=== PATIENT | male | born 1945 | race Caucasian/White ===

== ENCOUNTER 2023-02-25 14:18 | Outpatient (OUT) | payer MEDICARE, SELFPAY ==
--- NOTE | 2023-02-25 14:27 | CT_ITS ---
[address] [address] Patient Name: ARIANNE MCQUEEN MRN: [id number] date: 1945 Sex: M Assigned Patient Location: CT Current Patient Location: CT Accession/Order Number: [id number] Exam Date: 02/25/2023 14:30 Report Date: 02/25/2023 15:59 At the request of: IDA WHALEN Procedure: CT chest wo con EXAM: CT chest wo con HISTORY: Pneumonia J18.9 COMPARISON: 08/18/2022 TECHNIQUE: Axial CT images were obtained of the chest without intravenous contrast. Multiplanar reconstructions were performed. CHEST FINDINGS: Lungs/Pleura: Interval improvement of the consolidative opacity in the left lower lobe, however, there is some mild persistent atelectasis or infiltrate. A pulmonary nodule in this region measures 8.4 mm. Mild emphysematous disease is present. There are mild multifocal areas of atelectasis or scarring bilaterally. Trace bilateral pleural effusions are present. Cardiovascular: The heart is normal in size. Extensive coronary artery calcifications are present. The aorta and pulmonary arteries are unremarkable. Pericardium: No effusion. Mediastinum: Unremarkable. Lymph Nodes: No lymph node enlargement identified on this nonenhanced CT. Bones: There is a subacute fracture of the T5 vertebral body without significant displacement. Soft tissues: Unremarkable. Upper Abdomen: Unremarkable. IMPRESSION: 1. Improvement of the consolidative opacity in the left lower lobe with some persistent atelectasis or infiltrate. 2. Trace bilateral pleural effusions. 3. Pulmonary nodule in the left lower lobe measuring 8.4 mm. A follow-up CT the chest is recommended in 6 months. 4. Subacute fracture of the T5 vertebral body. 5. Extensive coronary artery calcification. Electronically authenticated by: YI ECHEVERRIA Date: 02/25/2023 15:59
== END 2023-02-25 14:19 | disposition home or self-care (01) ==
LOC: CT 14:18
PROVIDERS: PCP Family Medicine; Visit Provider Internal Medicine
DX: J18.9 Pneumonia, unspecified organism (principal); J90 Pleural effusion, not elsewhere classified; R91.1 Solitary pulmonary nodule; S22.059A Unspecified fracture of T5-T6 vertebra, initial encounter for closed fracture; I25.10 Atherosclerotic heart disease of native coronary artery without angina pectoris; X58.XXXA Exposure to other specified factors, initial encounter; R91.8 Other nonspecific abnormal finding of lung field
CPT/HCPCS: 71250

== ENCOUNTER 2023-03-26 10:13 | Outpatient (OUT) | payer MEDICARE, SELFPAY ==
--- NOTE | 2023-03-26 | VEIN_ITS ---
Patient: ARIANNE MCQUEEN Exam Date: 03/26/2023 : 1945 Gender:M Ordering : TRUDY DUNBAR Admission #: [id number] Family : Order #: [id number] CLICK HERE TO VIEW EXAM CORRECTION Corrected on: 03/26/2023; RADIOLOGY REPORT PROCEDURE: FACILITY [facility] COMPREHENSIVE VEIN CENTER - OFFICE VISIT INITIAL COMPARISON: None. PROGRESS NOTES: [age] year old male who presents with a 4+ year history of dilated discolored veins, leg pain and swelling, muscle cramping, edema, skin discoloration. The patient's bilateral leg symptoms are symmetric. There has been a progression of symptoms over past 4 years. This increases with prolonged standing. The patient describes an improvement with rest, elevation, exercise, support stockings (uniboots). The patient denies any signs and symptoms to suggest arterial ischemia. The patient describes a family history : Noncontributory. The patient has drinking and smoking history of : Occasional alcohol consumption; former tobacco smoker. Patient has a past medical history significant for diabetes, myocardial infarction, hypertension. The patient denies a history of deep venous thrombus or pulmonary embolus. See separate history and physical for medication list. No prior treatment for varicose or spider veins. Current use of compression stockings. After review of nurse notes, history and physical exam I discussed at length the pathophysiology of venous hypertension and possible treatments, therapies and strategies available. We discussed at length the importance of elevating the lower extremities above the level of the heart, increased physical activity and compression stocking use. Ultrasound venous reflux study performed today was discussed at length with the patient. The report demonstrates abnormally dilated and incompetent bilateral great saphenous veins (mid and distal thigh segment of left great saphenous vein has been removed or did not developed), bilateral small saphenous veins, multiple incompetent mental retardation aide veins within distal lower extremities in regions of patient's reoccurring wounds, and numerous incompetent branch saphenous varicosities bilaterally. PHYSICAL EXAM: The right leg demonstrates a few visible varicosities, a few spider veins, several partially healed wounds, marked edema, marked skin discoloration. The left leg demonstrates a few visible varicosities, a few spider veins, several partially healed wounds, marked edema, marked skin discoloration. Both thighs, legs and feet were symmetrically warm to the touch. Good posterior tibial and dorsalis pedis pulses were present bilaterally. VEIN/VC Facility EST Comprehensive IMPRESSION: 1. Bilateral lower extremity venous insufficiency 2. Bilateral lower extremity varicose veins 3. Marked bilateral lower extremity subcutaneous edema 4. No flow significant arterial disease 5. CEAP: C6, EP, AP, SC PLAN: 1. Continued use of compression stockings 2. Elevated legs and increased physical activity symptomatic relief 3. Endovenous laser ablation of right great saphenous vein, left small saphenous, right small saphenous, bilateral mental retardation aide veins near reoccurring wounds, followed by microfoam chemical ablation of any remaining incompetent branch saphenous varicosities. Nurse notes, history and physical were reviewed and confirmed, see attached forms. The nurse was present throughout the physical exam and consultation Dictated by: Km De Jesus M.D. on 03/26/2023 at 11:48 Approved by: Km De Jesus M.D. on 03/26/2023 at 13:05 Dictated by: Km De Jesus M.D. on 03/26/2023 at 13:10 Approved by: Km De Jesus M.D. on 03/26/2023 at 13:10
--- NOTE | 2023-03-26 | VEIN_ITS ---
Patient: ARIANNE MCQUEEN Exam Date: 03/26/2023 : 1945 Gender:M Ordering : TRUDY DUNBAR Admission #: [id number] Family : Order #: [id number] CLICK HERE TO VIEW EXAM RADIOLOGY REPORT PROCEDURE: VC EXT VENOUS REFLUX ANDI LMTD COMPARISON: None. INDICATIONS: Pain due to varicose veins of bilateral legs I83.813 TECHNIQUE: Duplex imaging of the lower extremity to assess the deep and superficial venous system for the presence of deep or superficial venous incompetence and to document the location and severity of disease. The study includes evaluation of the great saphenous vein (GSV), anterior accessory saphenous vein (AASV) and small saphenous vein (SSV). Patient scanned in reverse Trendelenburg and standing. FINDINGS: RIGHT LOWER EXTREMITY: Saphenofemoral Junction Reflux: Yes 9.9mm 2.7 sec GSV: Diam (mm) Reflux/ Time (sec) Proximal Thigh 10.3 Yes 1.7 Mid Thigh 7.3 Yes 4.9 Distal Thigh 8.0 Yes 4.5 Prox Calf 7.4 Yes 4.0 Mid Calf 6.2 Yes 1.7 Saphenopopliteal Junction Reflux: 7.6mm Yes 1.1 SSV: Proximal Calf 8.6 Yes 3.3 Mid Calf 7.4 Yes 4.2 AASV: Proximal Thigh 5.1 Yes 0.2 Mid Thigh 3.1 Yes 0.2 Distal Thigh Thrombi: No acute or chronic thrombus. Compressibility: Normal. Flow: Moderate to severe deep venous reflux. Preforator: Dist/med lower leg 5.9mm, 2.6s reflux. Prox/med calf 3.8mm, 0.7s reflux. Mid/lat lower leg 4.4mm, 1.5s reflux. Mid/lat lower leg 5.3mm, 1.0s reflux. Tech Note: Arterial plaque noted throughout. Incompetent varicose vein distal medial lower leg measures 4.6 mm with 0.8s reflux. Proximal medial lower leg varicosity measures 5.5 mm with 0.5s reflux. Varicose vein medial knee measures 5.5 mm with 1.2s reflux. Mid lateral lower leg varicose vein arising from insurance agents supervisor measures 4.1 mm with 0.8s reflux. 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 Compressibility: Partial compression of mid calf GSV. Flow: Moderate deep venous reflux. Returned Case Inspector: Mid/medial lower leg 5.3mm, 0.7s reflux. Prox/lat lower leg 4.8mm, 1.9s reflux. Tech Note: Arterial plaque noted throughout. GSV removed for heart surgery. Incompetent varicose vein mid lateral lower leg off of insurance agents supervisor measures 4.2 mm with 1.2s reflux. Varicose vein proximal medial lower leg measures 6.0 mm with 1.5s reflux. Mid medial thigh varicosity measures 0.7s reflux. Varicose vein mid medial lower leg measures 5.5 mm with 1.3s reflux. Proximal posterior calf varicosity measures 5.1 mm with 0.5s reflux. CONCLUSION: 1. Abnormally dilated and incompetent great saphenous veins bilaterally and small saphenous veins bilaterally. 2. Multiple abnormally dilated and incompetent insurance agents supervisor veins in areas of the patient's wounds involving both lower extremities. 3. Numerous dilated and incompetent branch saphenous varicosities bilaterally. Dictated by: Km De Jesus M.D. on 03/26/2023 at 11:43 Approved by: Km De Jesus M.D. on 03/26/2023 at 11:48
== END 2023-03-26 10:14 | disposition home or self-care (01) ==
LOC: VC 10:13
DX: I83.813 Varicose veins of bilateral lower extremities with pain (principal); R60.0 Localized edema; I89.0 Lymphedema, not elsewhere classified; I87.2 Venous insufficiency (chronic) (peripheral)
CPT/HCPCS: 93970; G0463

== ENCOUNTER 2023-04-14 09:47 | Outpatient (OUT) | payer MEDICARE, SELFPAY ==
--- NOTE | 2023-04-14 | VEIN_ITS ---
[address] [address] Patient Name: ARIANNE MCQUEEN MRN: [id number] date: 1945 Sex: M Assigned Patient Location: Current Patient Location: Accession/Order Number: [id number] Exam Date: 04/14/2023 10:00 Report Date: 04/14/2023 12:56 At the request of: JOHANA MAGANA Procedure: VC Endovenous Ablation 1VeinRT EXAMINATION: VC Endovenous Ablation 1VeinRT HISTORY: Pain due to varicose veins of bilateral legs I83.813 The risks and benefits of the procedure had been previously discussed, and were rediscussed at length. Informed written consent was obtained. Rogers Morgan RN and Maryjo Pride RDMS, RVT assisted. Time out procedure was performed. The right lower extremity was prepared and draped in the usual sterile fashion to allow knee flexion in the sterile field. Duplex ultrasound probe was draped in a sterile cover, sterile transmission gel was used. Venous mapping was performed with the areas of dilation and large tributaries marked. The total length was 70 cm from the entry 3 cm above the ankle to 3 cm below the Saphenofemoral junction. The diameter of the right great saphenous vein ranged from 10.3 mm. A 30 gauge needle and 1% buffered lidocaine was used to anesthetize the entry site. A 4 mm incision was made with a scalpel and the saphenous vein was entered percutaneously under direct ultrasound guidance with a micropuncture set, a single stick was successful in gaining access. A micro-guide wire was inserted and the needle removed. A micro-set including a dilator was inserted over the microwire and the needle and dilator were removed. A guide wire was inserted through the micro-set and guided through the saphenous vein to the saphenofemoral junction. The dilator was removed and an introducer sheath was inserted over the wire until the end of the sheath entered the saphenofemoral junction. The dilator and wire were removed and the 600 micron fiber was introduced and placed and positioned so that it extended beyond the sheath and was 3 cm distal to the saphenofemoral or saphenopopliteal junction. Final position of the fiber was determined by ultrasound guidance and duplex imaging. Tumescent anesthetic was delivered by ultrasound guidance. 375 cc of fluid was delivered along the entire course of the saphenous vein. The solution consisted of 1000 cc of normal saline with 40 mL of 1% lidocaine and 20 mL of sodium bicarbonate. A final positioning check was made. The energy source was turned on by means of the foot pedal and the fiber and sheath were withdrawn. The total number of Joules delivered was 3581. The laser was active for 448 seconds under continuous pulse, average laser use of 8 J. Laser start time 10:42 AM, 04/14/2023. Laser stop time 10:50 AM, 04/14/2023. A duplex ultrasound revealed compressibility and flow at the saphenofemoral junction immediately after the procedure. Hemostasis at the access site was achieved. The skin incision of the saphenous vein was closed with a 4 x 4. A compression stocking was applied. Postop instructions were given. A follow up appointment was recommended and scheduled. The patient tolerated the procedure well. Electronically authenticated by: NOREEN KELLY Date: 04/14/2023 12:56
[2023-04-14] MEDS: LIDOCAINE HCL 10 ML, SODIUM BICARBONATE 1 MEQ INJ (10:28)
[2023-04-14] MEDS: 0.9 % SODIUM CHLORIDE 500 ML, LIDOCAINE HCL 20 ML, SODIUM BICARBONATE 10 MEQ INJ (10:28)
== END 2023-04-14 09:48 | disposition home or self-care (01) ==
LOC: VC 09:47
PROVIDERS: Visit Provider Radiology Diagnostic Radiology
DX: I83.813 Varicose veins of bilateral lower extremities with pain (principal)
CPT/HCPCS: 36478

== ENCOUNTER 2023-04-20 10:48 | Outpatient (OUT) | payer MEDICARE, SELFPAY ==
--- NOTE | 2023-04-20 10:51 | VEIN_ITS ---
Patient: ARIANNE MCQUEEN Exam Date: 04/20/2023 : 1945 Gender:M Ordering : DR AUSTIN BANKS M.D. Admission #: [id number] Family : Order #: [id number] CLICK HERE TO VIEW EXAM RADIOLOGY REPORT PROCEDURE: VC EXT VENOUS RT LMTD COMPARISON: None. INDICATIONS: I80.01 Phlebitis of superficial veins of rt lower extremity TECHNIQUE: Lower extremity dutta scale and Duplex Doppler evaluation of the deep venous system from the inguinal ligament through the calf veins. FINDINGS: REGION: Right lower extremity. THROMBI: Negative for DVT. Heat induced thrombus in right GSV 2.3 cm from SFJ and extends to distal lower leg. COMPRESSIBILITY: Non-compressible segments corresponding to thrombus. FLOW: Absent flow corresponding to thrombus OTHER: Patent paratransit driver distal medial lower leg, 4.0 mm. CONCLUSION: Post ablation occlusion of the right great saphenous vein with heat induced thrombus 2.3 cm from the saphenofemoral junction Dictated by: Austin Banks MD on 04/20/2023 at 11:14 Approved by: Austin Banks MD on 04/20/2023 at 11:15
--- NOTE | 2023-04-20 10:51 | VEIN_ITS ---
Patient: ARIANNE MCQUEEN Exam Date: 04/20/2023 : 1945 Gender:M Ordering : DR AUSTIN BANKS M.D. Admission #: [id number] Family : Order #: [id number] CLICK HERE TO VIEW EXAM RADIOLOGY REPORT PROCEDURE: VC FACILITY EST LMTD VEIN CENTER - OFFICE VISIT FOLLOW UP COMPARISON: None. PROGRESS NOTES: The patient reports no significant problems following intravenous laser ablation of the right great saphenous vein. The patient has worn his compression stocking. The patient did not require oral analgesics. Patient has tried to follow our recommendations to exercise as he is able. Physical exam demonstrates no significant bruising. No erythema. No cellulitis or thrombophlebitis. No active ulceration. A thrombosed right great saphenous vein can be partially palpated Review of the ultrasound performed the same day demonstrates occlusive thrombus extending throughout the treated vein with heat induced thrombus 2.3 cm from the saphenofemoral junction. No deep vein thrombus. The patient expressed a desire to proceed with treatment and left small saphenous vein. VEIN/ Facility EST LMTD IMPRESSION: 1. Successful ablation of the right great saphenous vein 2. Persistent left small saphenous vein. PLAN: Intravenous laser ablation left small saphenous vein Nurse notes, history and physical were reviewed and confirmed, see attached forms. The nurse was present throughout the physical exam and consultation Dictated by: Austin Banks MD on 04/20/2023 at 11:43 Approved by: Austin Banks MD on 04/20/2023 at 11:44
== END 2023-04-20 10:49 | disposition home or self-care (01) ==
LOC: VC 10:49
PROVIDERS: PCP Radiology Diagnostic Radiology; Visit Provider Radiology Diagnostic Radiology
DX: I80.01 Phlebitis and thrombophlebitis of superficial vessels of right lower extremity (principal)
CPT/HCPCS: 93971; G0463

== ENCOUNTER 2023-05-05 07:55 | Outpatient (OUT) | payer MEDICARE, SELFPAY ==
--- NOTE | 2023-05-05 | VEIN_ITS ---
[address] [address] Patient Name: ARIANNE MCQUEEN MRN: [id number] date: 1945 Sex: M Assigned Patient Location: Current Patient Location: Accession/Order Number: [id number] Exam Date: 05/05/2023 07:52 Report Date: 05/05/2023 09:04 At the request of: JOHANA MAGANA Procedure: VC Endovenous Ablation 1VeinLT EXAMINATION: VC Endovenous Ablation 1Vein, left small saphenous vein HISTORY: Pain due to varicose veins of bilateral legs I83.813 COMPARISON: No relevant comparison available. TECHNIQUE: The risks and benefits of the procedure had been previously discussed, and were rediscussed at length. Informed written consent was obtained. Ladonna Stallworth and Heather Pride assisted. Time out procedure was performed. The left lower extremity was prepared and draped in the usual sterile fashion to allow knee flexion in the sterile field. Duplex ultrasound probe was draped in a sterile cover, sterile transmission gel was used. Venous mapping was performed with the areas of dilation and large tributaries marked. The total length was 34 cm from the entry 4 cm above the lateral malleolus to where the vein begins to dive deep. The diameter of the small bowel saphenous vein ranged from 5-8 mm. A 30 gauge needle and 1% buffered lidocaine was used to anesthetize the entry site. A 4 mm incision was made with a scalpel and the saphenous vein was entered percutaneously under direct ultrasound guidance with a micropuncture set, a single stick was successful in gaining access. A micro-guide wire was inserted and the needle removed. A micro-set including a dilator was inserted over the microwire and the needle and dilator were removed. A 0.018 guide wire was inserted through the micro-set and threaded through the saphenous vein. The dilator was removed and an introducer sheath was inserted over the wire. The dilator and wire were removed and the 600 micron fiber was introduced and placed and positioned so that it extended beyond the sheath. Final position of the fiber was determined by ultrasound guidance and duplex imaging. Tumescent anesthetic was delivered by ultrasound guidance. 150 cc of fluid was delivered along the entire course of the saphenous vein. The solution consisted of 1000 cc of normal saline with 40 mL of 1% lidocaine and 20 mL of sodium bicarbonate. A final positioning check was made. The energy source was turned on by means of the foot pedal and the fiber and sheath were withdrawn. The total number of Joules delivered was 1664. The laser was active for 208seconds under continuous pulse, average laser use of 8 J. Laser start time 8:26 AM 05/05/2023 . Laser stop time 8:30 AM 05/05/23. A duplex ultrasound revealed compressibility and flow at the saphenofemoral junction immediately after the procedure. Hemostasis at the access site was achieved. The skin incision of the saphenous vein was closed with a 4 x 4. A compression stocking was applied. Postop instructions were given. A follow up appointment was recommended and scheduled. The patient tolerated the procedure well and was discharged in good condition . VEIN/VC Endovenous Ablation 1VeinLT IMPRESSION: Technically successful endovenous laser ablation of the left small saphenous vein Electronically authenticated by: JOHANA MAGANA Date: 05/05/2023 09:04
[2023-05-05] MEDS: 0.9 % SODIUM CHLORIDE 500 ML, LIDOCAINE HCL 20 ML, SODIUM BICARBONATE 10 MEQ INJ (08:45)
== END 2023-05-05 07:56 | disposition home or self-care (01) ==
LOC: VC 07:56
PROVIDERS: PCP Radiology Diagnostic Radiology; Visit Provider Radiology Diagnostic Radiology
DX: I83.813 Varicose veins of bilateral lower extremities with pain (principal)
CPT/HCPCS: 36478

== ENCOUNTER 2023-05-12 07:50 | Outpatient (OUT) | payer MEDICARE, SELFPAY ==
--- NOTE | 2023-05-12 07:57 | VEIN_ITS ---
Patient: ARIANNE MCQUEEN Exam Date: 05/12/2023 : 1945 Gender:M Ordering : DR JOHANA MAGANA M.D. Admission #: [id number] Family : Order #: [id number] CLICK HERE TO VIEW EXAM RADIOLOGY REPORT PROCEDURE: [facility] EST LMTD VEIN CENTER - OFFICE VISIT FOLLOW UP COMPARISON: [facility], 04/20/2023. PROGRESS NOTES: The patient reports improvement in leg symptoms. There has been interval reduction in varicosities. The patient has followed our recommendations to walk 20-30 minutes once or twice per day since the procedure. Physical exam demonstrates decrease in varicosities of the leg. Persistent varicosities are identified along the legs bilaterally. Review of the ultrasound performed the same day demonstrates occlusive thrombus extending throughout the treated vein(s), see separate report, consistent with a successful ablation. No thrombus extending into or beyond the saphenofemoral junction. The patient expressed a desire to proceed with treatment of remaining incompetent varicosities. The patient was informed that treatment was a process and would require several procedures[facility]sessions[facility]: 1. Successful ablation of the left small saphenous vein(s). 2. Persistent incompetent varicose veins and lower extremity symptoms. PLAN: Endovenous laser ablation of right small saphenous vein Nurse notes, history and physical were reviewed and confirmed, see attached forms. The nurse was present throughout the physical exam and consultation Dictated by: Km De Jesus M.D. on 05/12/2023 at 11:09 Approved by: Km De Jesus M.D. on 05/12/2023 at 11:11
--- NOTE | 2023-05-12 07:57 | VEIN_ITS ---
Patient: ARIANNE MCQUEEN Exam Date: 05/12/2023 : 1945 Gender:M Ordering : DR JOHANA MAGANA M.D. Admission #: [id number] Family : Order #: [id number] CLICK HERE TO VIEW EXAM RADIOLOGY REPORT PROCEDURE: VC EXT VENOUS LT LIMITED COMPARISON: None. INDICATIONS: I80.02 Phlebitis of superficial veins of lt lower extremity TECHNIQUE: Lower extremity dutta scale and Duplex Doppler evaluation of the deep venous system from the inguinal ligament through the calf veins. FINDINGS: REGION: Left lower extremity. THROMBI: Negative for DVT. Heat induced thrombus visualized arising at distal thigh and extending through distal calf. COMPRESSIBILITY: Non-compressible segments. FLOW: Areas of no flow. OTHER: CONCLUSION: 1. Successful post ablation occlusion of left small saphenous vein. Dictated by: Km De Jesus M.D. on 05/12/2023 at 11:08 Approved by: Km De Jesus M.D. on 05/12/2023 at 11:09
== END 2023-05-12 07:51 | disposition home or self-care (01) ==
LOC: VC 07:50
PROVIDERS: PCP Radiology Diagnostic Radiology; Visit Provider Radiology Diagnostic Radiology
DX: I80.02 Phlebitis and thrombophlebitis of superficial vessels of left lower extremity (principal)
CPT/HCPCS: 93971; G0463

== ENCOUNTER 2023-05-20 10:13 | Outpatient (OUT) | payer MEDICARE, SELFPAY ==
[2023-05-20 11:05] LABS: Bilirubin Urine NEGATIVE (NEGATIVE); Blood Urine NEGATIVE (NEGATIVE); Clarity Urine CLEAR (CLEAR); Color Urine LT. YELLOW (YELLOW); Glucose Urine UA NEGATIVE (NEGATIVE); Ketones Urine NEGATIVE (NEGATIVE); Leukocyte Esterase Urine NEGATIVE (NEGATIVE); Nitrite Urine NEGATIVE (NEGATIVE); Protein Urine NEGATIVE (NEG/TRACE)
[2023-05-20 11:20] LABS: Basophils Absolute Auto 0.1 10^3/uL (0.0-0.1); Basophils Percent Auto 0.9 % (0.2-2.0); Eosinophils Absolute Auto 0.2 10^3/uL (0.0-0.7); Eosinophils Percent Auto 3.8 % (0.9-7.0); Hemoglobin 12.8 g/dL (14.0-18.0); Immature Granulocytes Abs Auto 0.03 10^3/uL (0.00-0.03); Immature Granulocytes Pct Auto 0.5 % (0.0-0.5); Lymphocytes Absolute Auto 1.6 10^3/uL (1.2-3.8); Lymphocytes Percent Auto 29.3 % (20.5-60.0); Mean Corpuscular Hemoglobin 29.7 pg (25.9-34.0); Mean Corpuscular Volume 92.8 fL (80.0-94.0); Mean Platelet Volume 9.2 fL (9.5-13.5); Monocytes Absolute Auto 0.7 10^3/uL (0.3-0.8); Monocytes Percent Auto 12.2 % (1.7-12.0); Neutrophils Percent Auto 53.3 % (43.0-75.0); Platelet Count 226 10^3/uL (150-450); Red Blood Count 4.31 10^6/uL (4.70-6.10); Red Cell Distribution Width 15.3 % (11.0-15.0); White Blood Count 5.6 10^3/uL (4.0-11.0)
[2023-05-20 11:34] LABS: Bacteria Urine NONE SEEN #/HPF (NONE SEEN); Mucus Urine NONE SEEN (NONE SEEN); RBC Urine NONE SEEN #/HPF (0-2); Squamous Epithelial Cell Urine RARE #/LPF (NONE/RARE); WBC Urine NONE SEEN #/HPF (NONE SEEN)
[2023-05-20 11:55] LABS: Microalbumin Urine Random <1.3 mg/dL (<=30.0)
[2023-05-20 13:35] LABS: Estimated Average Glucose 114 mg/dL; Glycohemoglobin A1C 5.6 % (4.5-6.2)
[2023-05-20 13:58] LABS: Alanine Aminotransferase 16 U/L (16-63); Albumin Globulin Ratio 0.6; Albumin Level 3.1 g/dL (3.4-5.0); Alkaline Phosphatase 92 U/L (46-116); Anion Gap 11.5; Aspartate Amino Transferase 12 U/L (15-37); BUN Creatinine Ratio 18.5; Calcium 8.4 mg/dL (8.5-10.1); Carbon Dioxide 27.2 mmol/L (21.0-32.0); Chloride 101 mmol/L (98-107); Chol HDL Ratio 2.3; Cholesterol 125 mg/dL (<=200); Estimated GFR (African America >60 (>=60); Estimated GFR (Non-African Ame >60 (>=60); Globulin 4.8 g/dL; Glucose 112 mg/dL (74-106); HDL Cholesterol 55 mg/dL (40-60); LDL Cholesterol Calculated 61.2 mg/dL; Potassium 4.7 mmol/L (3.5-5.1); Sodium 135 mmol/L (136-145); Total Protein 7.9 g/dL (6.4-8.2); Triglycerides 44 mg/dL (<=150); VLDL CHOLESTEROL 8.8 mg/dL
[2023-05-20 18:02] LABS: Prostate Specific Antigen Scrn 1.52 ng/mL (<=4.00)
== END 2023-05-20 10:14 | disposition home or self-care (01) ==
PROVIDERS: PCP Nurse Practitioner; Visit Provider Nurse Practitioner
DX: E11.9 Type 2 diabetes mellitus without complications (principal); I10 Essential (primary) hypertension; I25.10 Atherosclerotic heart disease of native coronary artery without angina pectoris; D64.9 Anemia, unspecified; Z12.5 Encounter for screening for malignant neoplasm of prostate
CPT/HCPCS: 36415; 80053; 80061; 81001; 82043; 82728; 83036; 83540; 85025; G0103

== ENCOUNTER 2023-05-26 10:16 | Outpatient (OUT) | payer MEDICARE, SELFPAY ==
--- NOTE | 2023-05-26 10:17 | VEIN_ITS ---
[address] [address] Patient Name: ARIANNE MCQUEEN MRN: [id number] date: 1945 Sex: M Assigned Patient Location: Current Patient Location: Accession/Order Number: [id number] Exam Date: 05/26/2023 10:28 Report Date: 05/26/2023 12:09 At the request of: JOHANA MAGANA Procedure: VC Endovenous Ablation 1VeinRT EXAMINATION: VC Endovenous Ablation 1Vein HISTORY: I83.813 Painful varicose veins of bilat lower extremities COMPARISON: No relevant comparison available. TECHNIQUE: The risks and benefits of the procedure had been previously discussed, and were rediscussed at length. Informed written consent was obtained. Heather Pride and Ladonna Stallworth assisted. Time out procedure was performed. The right lower extremity was prepared and draped in the usual sterile fashion. Duplex ultrasound probe was draped in a sterile cover, sterile transmission gel was used. Venous mapping was performed with the areas of dilation and large tributaries marked. The total length was 24 cm from the entry 6 cm above the lateral malleolus to where the vein begins to dive deep to the popliteal junction. The diameter of the small saphenous vein ranged from 5-9 mm. A 30 gauge needle and 1% buffered lidocaine was used to anesthetize the entry site. A 4 mm incision was made with a scalpel and the saphenous vein was entered percutaneously under direct ultrasound guidance with a micropuncture set, a single stick was successful in gaining access. A micro-guide wire was inserted and the needle removed. A micro-set including a dilator was inserted over the microwire and the needle and dilator were removed. A 0.018 guide wire was inserted through the micro-set and threaded through the saphenous vein . The dilator was removed and an introducer sheath was inserted over the wire until the end of the sheath. The dilator and wire were removed and the 600 micron fiber was introduced and placed and positioned so that it extended beyond the sheath. Final position of the fiber was determined by ultrasound guidance and duplex imaging. Tumescent anesthetic was delivered by ultrasound guidance. 150 cc of fluid was delivered along the entire course of the saphenous vein. The solution consisted of 1000 cc of normal saline with 40 mL of 1% lidocaine and 20 mL of sodium bicarbonate. A final positioning check was made. The energy source was turned on by means of the foot pedal and the fiber and sheath were withdrawn. The total number of Joules delivered was 1139. The laser was active for 142 seconds under continuous pulse, average laser use of 8 J. Laser start time 11:34 AM 05/26/23 . Laser stop time 11:36 AM 05/26/23. A duplex ultrasound revealed compressibility and flow at the saphenofemoral junction immediately after the procedure. Hemostasis at the access site was achieved. The skin incision of the saphenous vein was closed with a 4 x 4. A compression stocking was applied. Postop instructions were given. A follow up appointment was recommended and scheduled. The patient tolerated the procedure well and was discharged in good condition . VEIN/VC Endovenous Ablation 1VeinRT IMPRESSION: Technically successful endovenous laser ablation right small saphenous vein Electronically authenticated by: JOHANA MAGANA Date: 05/26/2023 12:09
[2023-05-26] MEDS: LIDOCAINE HCL 1% 100 MG/10 ML MDV INJ (11:55)
[2023-05-26] MEDS: 0.9 % SODIUM CHLORIDE 500 ML, LIDOCAINE HCL 20 ML, SODIUM BICARBONATE 10 MEQ INJ (11:56)
== END 2023-05-26 10:17 | disposition home or self-care (01) ==
LOC: VC 10:16
PROVIDERS: PCP Nurse Practitioner; Visit Provider Radiology Diagnostic Radiology
DX: I83.813 Varicose veins of bilateral lower extremities with pain (principal)
CPT/HCPCS: 36478

== ENCOUNTER 2023-06-02 09:12 | Outpatient (OUT) | payer MEDICARE, SELFPAY ==
--- NOTE | 2023-06-02 09:13 | VEIN_ITS ---
Patient: ARIANNE MCQUEEN Exam Date: 06/02/2023 : 1945 Gender:M Ordering : DR AUSTIN BANKS M.D. Admission #: [id number] Family : Order #: [id number] CLICK HERE TO VIEW EXAM RADIOLOGY REPORT PROCEDURE: FACILITY EST LMTD VEIN CENTER - OFFICE VISIT FOLLOW UP COMPARISON: FACILITY EST LMTD, 05/12/2023. FACILITY EST LMTD, 04/20/2023. PROGRESS NOTES: The patient reports difficult problems following intravenous laser ablation of the right small saphenous vein. The patient did not require oral analgesics. The patient has worn his compression stockings. The patient has exercised to the best of his ability Physical exam demonstrates the incision site to be closed. No areas of erythema or warmth. Thrombosed small saphenous vein cannot be palpated due to subcutaneous edema. Bilateral pitting edema below the knees is noted. Multiple active venous stasis ulcerations, right greater than left. Review of the ultrasound performed the same day demonstrates occlusive thrombus extending throughout the treated right small saphenous vein with heat induced thrombus 2.5 cm from the saphenopopliteal junction. The patient expressed a desire to proceed with treatment of bilateral incompetent perforating veins with associated venous stasis ulcerations, left before right. VEIN/ Facility EST LMTD IMPRESSION: 1. Successful ablation of the right small saphenous vein 2. 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 PLAN: Intravenous laser ablation left leg incompetent perforating veins Nurse notes, history and physical were reviewed and confirmed, see attached forms. The nurse was present throughout the physical exam and consultation Dictated by: Austin Banks MD on 06/02/2023 at 09:59 Approved by: Austin Banks MD on 06/02/2023 at 10:01
--- NOTE | 2023-06-02 09:14 | VEIN_ITS ---
Patient: ARIANNE MCQUEEN Exam Date: 06/02/2023 : 1945 Gender:M Ordering : DR AUSTIN BANKS M.D. Admission #: [id number] Family : Order #: [id number] CLICK HERE TO VIEW EXAM RADIOLOGY REPORT PROCEDURE: VC EXT VENOUS RT LMTD COMPARISON: VC EXT VENOUS RT LMTD, 04/20/2023. INDICATIONS: I80.01 Phlebitis of superficial veins of rt lower extremity TECHNIQUE: Lower extremity dutta scale and Duplex Doppler evaluation of the deep venous system from the inguinal ligament through the calf veins. FINDINGS: REGION: Right lower extremity. THROMBI: Negative for DVT. Heat induced thrombus visualized 2.5 cm from the SPJ. The heat induced thrombus extends from SPJ through distal calf. COMPRESSIBILITY: Non-compressible segments corresponding to thrombus. FLOW: Absent flow corresponding to thrombus CONCLUSION: Post ablation occlusion of treated right leg small saphenous vein. Heat induced thrombus is 2.5 cm from the saphenopopliteal junction Dictated by: Austin Banks MD on 06/02/2023 at 09:51 Approved by: Austin Banks MD on 06/02/2023 at 09:53
== END 2023-06-02 09:13 | disposition home or self-care (01) ==
LOC: VC 09:12
PROVIDERS: PCP Nurse Practitioner; Visit Provider Radiology Diagnostic Radiology
DX: I80.01 Phlebitis and thrombophlebitis of superficial vessels of right lower extremity (principal)
CPT/HCPCS: 93971; G0463

== ENCOUNTER 2023-06-04 07:25 | Outpatient (OUT) | payer MEDICARE, SELFPAY ==
--- NOTE | 2023-06-04 07:28 | VEIN_ITS ---
[address] [address] Patient Name: ARIANNE MCQUEEN MRN: [id number] date: 1945 Sex: M Assigned Patient Location: Current Patient Location: Accession/Order Number: [id number] Exam Date: 06/04/2023 07:28 Report Date: 06/04/2023 09:30 At the request of: JOHANA MAGANA Procedure: VC Endovenous Perf Ablation LT EXAMINATION: VC Endovenous Perf Ablation LT COMPARISON: INDICATIONS: I83.813 Painful varicose veins of bilat lower extremities OPERATIVE REPORT: Diagnosis: Superficial venous reflux, incompetent perforating veins Procedure: Endovenous laser ablation of the left licensed staff mft(s) Procedure: The patient was positioned supine on the table and the leg was prepped and draped to allow for visualization during venous access. A sterile cover was draped over a 16 mhz ultrasound probe. Venous mapping was performed prior to the procedure noting location and size of vessel(s). Production Broacher vein 1: Medial mid left calf. The diameter of the vein ranged from 5.3 mm's below the muscular fascia to 5.3 mm's at the entry point. Using a 30 gauge needle the entry site was anesthetized with 0.5 cc of 1% buffered lidocaine. Access was gained percutaneously, with a 21-gauge needle, into the licensed staff mft vein under ultrasound guidance. The needle was advanced into the desired position and the pre-measured 400-micron fiber was then inserted into the needle and locked in place. The position of the fiber was imaged with ultrasound guidance. The fiber tip was visualized to be 10 mm from the deep vessel. An anesthetic solution of 2.0 cc 1% buffered lidocaine was delivered along the course of the vein under ultrasound guidance using a syringe. A final positioning check of the laser fiber tip was performed. The laser was activated by means of a foot-pedal and the fiber and needle were withdrawn together in accordance to the desired joules per treatment area/spot weld. 4 areas/spot welds were performed, and the total number of joules delivered was 267. The total time of energy delivery was 33 seconds. A duplex ultrasound revealed compressibility and flow of the deep system immediately after the procedure. Hemostasis of the access site was achieved and dressed. A 20-30 mm compression stocking over coban was placed on the treated leg. Post-Op instructions were given, and a follow-up appointment was made. Production Broacher vein 2: Proximal lateral left calf. The diameter of the vein ranged from 4.8 mm's below the muscular fascia to 4.8 mm's at the entry point. Using a 30 gauge needle the entry site was anesthetized with 0.5 cc of 1% buffered lidocaine. Access was gained percutaneously, with a 21-gauge needle, into the licensed staff mft vein under ultrasound guidance. The needle was advanced into the desired position and the pre-measured 400-micron fiber was then inserted into the needle and locked in place. The position of the fiber was imaged with ultrasound guidance. The fiber tip was visualized to be 10 mm from the deep vessel. An anesthetic solution of 2 cc 1% buffered lidocaine was delivered along the course of the vein under ultrasound guidance using a syringe. A final positioning check of the laser fiber tip was performed. The laser was activated by means of a foot-pedal and the fiber and needle were withdrawn together in accordance to the desired joules per treatment area/spot weld. 5 areas/spot welds were performed, and the total number of joules delivered was 334. The total time of energy delivery was seconds. A duplex ultrasound revealed compressibility and flow of the deep system immediately after the procedure. Hemostasis of the access site was achieved and dressed. A 20-30 mm compression stocking over coban was placed on the treated leg. Post-Op instructions were given, and a follow-up appointment was made. CONCLUSION: 1. Technically successful endovenous laser ablation of 2 licensed staff mft veins (the proximal lateral left calf licensed staff mft vein was a branching licensed staff mft vein with 1 branch directly treated and the other clotted in conjunction). Electronically authenticated by: NOREEN KELLY Date: 06/04/2023 09:30
[2023-06-04] MEDS: LIDOCAINE HCL 20 ML, SODIUM BICARBONATE 2 MEQ INJ (09:09)
== END 2023-06-04 07:26 | disposition home or self-care (01) ==
LOC: VC 07:25
PROVIDERS: PCP Nurse Practitioner; Visit Provider Radiology Diagnostic Radiology
DX: I83.813 Varicose veins of bilateral lower extremities with pain (principal)
CPT/HCPCS: 36478

== ENCOUNTER 2023-06-18 09:00 | Outpatient (OUT) | payer MEDICARE, SELFPAY ==
--- NOTE | 2023-06-18 | VEIN_ITS ---
Patient: ARIANNE MCQUEEN Exam Date: 06/18/2023 : 1945 Gender:M Ordering : DR Austin Banks M.D. Admission #: [id number] Family : Order #: [id number] CLICK HERE TO VIEW EXAM RADIOLOGY REPORT PROCEDURE: [facility] EST L[facility] VEIN CENTER - OFFICE VISIT FOLLOW UP [facility] PROGRESS NOTES: The patient reports improvement in leg symptoms. There has been interval reduction in varicosities. The patient has followed our recommendations to walk 20-30 minutes once or twice per day since the procedure. Physical exam demonstrates decrease in varicosities of the leg. Persistent varicosities are identified along the legs bilaterally. Review of the ultrasound performed the same day demonstrates occlusive thrombus extending throughout the treated vein(s), see separate report, consistent with a successful ablation. No thrombus extending into or beyond the saphenofemoral junction. The patient expressed a desire to proceed with treatment of remaining incompetent varicosities and campaign manager veins. The patient was informed that treatment was a process and would require several procedures/sessions. VEIN/[facility] EST LMTD IMPRESSION: 1. Successful ablation of the treated left leg campaign manager veins. 2. Persistent incompetent and dilated varicose veins and lower extremity symptoms. PLAN: 1. Endovenous laser ablation of right lower extremity dilated/incompetent campaign manager veins in area of wounds. Nurse notes, history and physical were reviewed and confirmed, see attached forms. The nurse was present throughout the physical exam and consultation Dictated by: Km De Jesus M.D. on 06/18/2023 at 13:38 Approved by: Km De Jesus M.D. on 06/18/2023 at 13:40
--- NOTE | 2023-06-18 | VEIN_ITS ---
Patient: ARIANNE MCQUEEN Exam Date: 06/18/2023 : 1945 Gender:M Ordering : DR Austin Banks M.D. Admission #: [id number] Family : Order #: [id number] CLICK HERE TO VIEW EXAM RADIOLOGY REPORT PROCEDURE: VC EXT VENOUS LT LIMITED COMPARISON: VC EXT VENOUS LT LIMITED, 05/12/2023. INDICATIONS: Phlebitis of superficial veins of lt lower extremity I80.02 TECHNIQUE: Lower extremity dutta scale and Duplex Doppler evaluation of the deep venous system from the inguinal ligament through the calf veins. FINDINGS: REGION: Left lower extremity. THROMBI: Negative for DVT. Heat induced thrombus visualized at mid/med calf and prox/lat calf. COMPRESSIBILITY: Choose one.Non-compressible segments corresponding to thrombus FLOW: Areas of no flow. OTHER: CONCLUSION: 1. Successful post ablation occlusion of treated left lower extremity hollow handle knife assembler veins. Dictated by: Km De Jesus M.D. on 06/18/2023 at 13:37 Approved by: Km De Jesus M.D. on 06/18/2023 at 13:38
== END 2023-06-18 09:01 | disposition home or self-care (01) ==
LOC: VC 09:01
PROVIDERS: PCP Nurse Practitioner; Visit Provider Radiology Diagnostic Radiology
DX: R91.1 Solitary pulmonary nodule (principal); S22.059A Unspecified fracture of T5-T6 vertebra, initial encounter for closed fracture; I80.02 Phlebitis and thrombophlebitis of superficial vessels of left lower extremity
CPT/HCPCS: 71250; 93971; G0463

== ENCOUNTER 2023-06-18 12:46 | Outpatient (OUT) | payer MEDICARE, SELFPAY ==
--- NOTE | 2023-06-18 12:51 | CT_ITS ---
[address] [address] Patient Name: ARIANNE MCQUEEN MRN: [id number] date: 1945 Sex: M Assigned Patient Location: CT Current Patient Location: CT Accession/Order Number: [id number] Exam Date: 06/18/2023 13:00 Report Date: 06/18/2023 13:36 At the request of: IDA WHALEN Procedure: CT chest wo con EXAMINATION: CT chest wo con HISTORY: Solitary pulmonary nodule R91.1 COMPARISON: CT chest 02/25/2023 TECHNIQUE: Multi-planar CT images were obtained without and/or with IV contrast as indicated by examination type. Axial, Coronal, and Sagittal images. Dose reduction techniques were achieved by using automated exposure control and/or adjustment of mA and/or kV according to patient size and/or use of iterative reconstruction technique. FINDINGS: LUNGS: Clear to previously seen infiltrates and left lower lobe opacity/nodule. Mild emphysematous changes. PLEURA: No mass, effusion, or pneumothorax. VASCULATURE: No abnormality. GAGE: Calcified lymph nodes compatible with chronic granulomatous disease. MEDIASTINUM: A few calcified lymph nodes. CARDIAC: Atherosclerotic coronary artery disease. No pericardial effusion. AORTA: No aneurysm or dissection. CHEST WALL: No mass or axillary adenopathy. BONES: Stable transverse fracture through T5 vertebral body with normal height and alignment maintained. Suspect old fracture of sternum and old, healed fractures of several right ribs. LIMITED ABDOMEN: No suspicious findings Limited images of the upper abdomen. OTHER: Negative. CT/CT chest wo con IMPRESSION: 1. Clearing of previously seen infiltrates left lung base nodule/infiltrate. No suspicious lung findings. 2. Stable subacute transverse fracture of T5 vertebral body; unchanged compared to 02/25/2023, but not present on 08/18/2022. Electronically authenticated by: NOREEN KELLY Date: 06/18/2023 13:36
== END 2023-06-18 12:47 | disposition home or self-care (01) ==
LOC: CT 12:46
PROVIDERS: PCP Nurse Practitioner; Visit Provider Internal Medicine
DX: R91.1 Solitary pulmonary nodule (principal); S22.059A Unspecified fracture of T5-T6 vertebra, initial encounter for closed fracture
CPT/HCPCS: 71250

== ENCOUNTER 2023-06-30 09:48 | Outpatient (OUT) | payer MEDICARE, SELFPAY ==
--- NOTE | 2023-06-30 09:50 | VEIN_ITS ---
[address] [address] Patient Name: ARIANNE MCQUEEN MRN: [id number] date: 1945 Sex: M Assigned Patient Location: Current Patient Location: Accession/Order Number: [id number] Exam Date: 06/30/2023 10:00 Report Date: 06/30/2023 10:49 At the request of: JOHANA MAGANA Procedure: VC Endovenous Perf Ablation RT EXAMINATION: VC Endovenous Perf Ablation RT COMPARISON: INDICATIONS: I83.813 Painful varicose veins of bilat lower extremities OPERATIVE REPORT: Diagnosis: Superficial venous reflux, incompetent perforating veins Procedure: Endovenous laser ablation of the right engineer specialist(s) Procedure: The patient was positioned supine on the table and the leg was prepped and draped to allow for visualization during venous access. A sterile cover was draped over a 16 mhz ultrasound probe. Venous mapping was performed prior to the procedure noting location and size of vessel(s). Printer Technician vein 1: Right distal medial lower leg. The diameter of the vein ranged from 6 mm's below the muscular fascia to 6 mm's at the entry point. Using a 30 gauge needle the entry site was anesthetized with 1 cc of 1% buffered lidocaine. Access was gained percutaneously, with a 21-gauge needle, into the engineer specialist vein under ultrasound guidance. The needle was advanced into the desired position and the pre-measured 400-micron fiber was then inserted into the needle and locked in place. The position of the fiber was imaged with ultrasound guidance. The fiber tip was visualized to be 25 mm from the deep vessel. An anesthetic solution of 5cc 1% buffered lidocaine was delivered along the course of the vein under ultrasound guidance using a syringe. A final positioning check of the laser fiber tip was performed. The laser was activated by means of a foot-pedal and the fiber and needle were withdrawn together in accordance to the desired joules per treatment area/spot weld. 4 areas/spot welds were performed, and the total number of joules delivered was 310. The total time of energy delivery was 39 seconds. A duplex ultrasound revealed compressibility and flow of the deep system immediately after the procedure. Hemostasis of the access site was achieved. Printer Technician vein 2: Mid right lateral lower leg. The diameter of the vein ranged from 6 mm's below the muscular fascia to 5.3 mm's at the entry point. Using a 30 gauge needle the entry site was anesthetized with 1 cc of 1% buffered lidocaine. Access was gained percutaneously, with a 21-gauge needle, into the engineer specialist vein under ultrasound guidance. The needle was advanced into the desired position and the pre-measured 400-micron fiber was then inserted into the needle and locked in place. The position of the fiber was imaged with ultrasound guidance. The fiber tip was visualized to be 30 mm from the deep vessel. An anesthetic solution of 5cc 1% buffered lidocaine was delivered along the course of the vein under ultrasound guidance using a syringe. A final positioning check of the laser fiber tip was performed. The laser was activated by means of a foot-pedal and the fiber and needle were withdrawn together in accordance to the desired joules per treatment area/spot weld. 3areas/spot welds were performed, and the total number of joules delivered was 135. The total time of energy delivery was 17 seconds. A duplex ultrasound revealed compressibility and flow of the deep system immediately after the procedure. Hemostasis of the access site was achieved and dressed. A 20-30 mm compression stocking over coban was placed on the treated leg. Post-Op instructions were given, and a follow-up appointment was made. CONCLUSION: 1. Technically successful endovenous laser ablation of 2 right leg incompetent, engineer specialist veins Electronically authenticated by: JOHANA MAGANA Date: 06/30/2023 10:49
[2023-06-30] MEDS: LIDOCAINE HCL 20 ML, SODIUM BICARBONATE 2 MEQ INJ (10:13)
== END 2023-06-30 09:49 | disposition home or self-care (01) ==
LOC: VC 09:48
PROVIDERS: PCP Radiology Diagnostic Radiology; Visit Provider Radiology Diagnostic Radiology
DX: I83.813 Varicose veins of bilateral lower extremities with pain (principal)
CPT/HCPCS: 36478

== ENCOUNTER 2023-07-15 09:53 | Outpatient (OUT) | payer MEDICARE, SELFPAY ==
--- NOTE | 2023-07-15 09:55 | VEIN_ITS ---
Patient Name: ARIANNE MCQUEEN MR#: [id number] : 1945 Exam Date: 07/15/2023 Ordering Doctor: DR JOHANA MAGANA M.D. RADIOLOGY REPORT PROCEDURE: [facility] EST LMTD VEIN CENTER - OFFICE VISIT FOLLOW UP COMPARISON: [facility], 06/18/2023. PROGRESS NOTES: The patient reports improvement in leg symptoms. There has been interval reduction in varicosities. The patient has followed our recommendations to walk 20-30 minutes once or twice per day since the procedure. Physical exam demonstrates decrease in varicosities of the leg. Persistent varicosities are identified along the legs bilaterally. Review of the ultrasound performed the same day demonstrates occlusive thrombus extending throughout the treated vein(s), see separate report, consistent with a successful ablation. No thrombus extending into or beyond the saphenofemoral junction. The patient expressed a desire to proceed with treatment of remaining incompetent branch saphenous varicosities. The patient was informed that treatment was a process and would require several procedures[facility]sessions[facility]: 1. Successful ablation of the treated right leg kitchen runner veins. 2. Persistent incompetent branch saphenous veins and lower extremity symptoms. PLAN: Microfoam chemical ablation of bilateral lower extremity branch saphenous varicosities. Nurse notes, history and physical were reviewed and confirmed, see attached forms. The nurse was present throughout the physical exam and consultation Dictated by: Km De Jesus M.D. on 07/15/2023 at 11:01 Approved by: Km De Jesus M.D. on 07/15/2023 at 11:02
--- NOTE | 2023-07-15 09:55 | VEIN_ITS ---
Patient Name: ARIANNE MCQUEEN MR#: [id number] : 1945 Exam Date: 07/15/2023 Ordering Doctor: DR JOHANA MAGANA M.D. RADIOLOGY REPORT PROCEDURE: VC EXT VENOUS RT LMTD COMPARISON: VC EXT VENOUS RT LMTD, 06/02/2023. INDICATIONS: I80.01 Phlebitis of superficial veins of rt lower extremity TECHNIQUE: Lower extremity dutta scale and Duplex Doppler evaluation of the deep venous system from the inguinal ligament through the calf veins. FINDINGS: REGION: Right lower extremity. THROMBI: Negative for DVT. Heat induced thrombus visualized at dist/med calf and mid/lat calf. COMPRESSIBILITY: Non-compressible segments corresponding to thrombus FLOW: Areas of no flow corresponding to thrombus OTHER: CONCLUSION: 1. Successful post ablation occlusion of treated right leg pole inspector veins. Dictated by: Km De Jesus M.D. on 07/15/2023 at 10:58 Approved by: Km De Jesus M.D. on 07/15/2023 at 11:00
== END 2023-07-15 09:54 | disposition home or self-care (01) ==
LOC: VC 09:53
PROVIDERS: PCP Radiology Diagnostic Radiology; Visit Provider Radiology Diagnostic Radiology
DX: I80.01 Phlebitis and thrombophlebitis of superficial vessels of right lower extremity (principal)
CPT/HCPCS: 93971; G0463

== ENCOUNTER 2023-07-28 11:18 | Outpatient (OUT) | payer MEDICARE, SELFPAY ==
--- NOTE | 2023-07-28 11:22 | VEIN_ITS ---
[address] [address] Patient Name: ARIANNE MCQUEEN MRN: [id number] date: 1945 Sex: M Assigned Patient Location: Current Patient Location: Accession/Order Number: [id number] Exam Date: 07/28/2023 11:25 Report Date: 07/28/2023 13:05 At the request of: JOHANA MAGANA Procedure: VC INJ Foam Sclerosant WUS FIRE CLAIMS ADJUSTER PROCEDURE: VC INJ Foam Sclerosant WUS FIRE CLAIMS ADJUSTER HISTORY: Pain due to varicose veins of bilateral legs I83.813 Pre-operative Diagnosis: CEAP class C6 venous insufficiency with pain, tenderness, edema and incompetent branch saphenous vein(s), chronic venous insufficiency left leg secondary to venous incompetence Post-operative Diagnosis: CEAP class C6 venous insufficiency with pain, tenderness, edema and incompetent branch saphenous vein(s), chronic venous insufficiency left leg secondary to venous incompetence Procedure Performed: 1. Ultrasound-guided microfoam chemical ablation with Varithenaregistered 2. Intraoperative ultrasound guidance Physician: Km De Jesus M.D. Anesthesia: None Indications for Procedure: 78 year old male. Symptoms including lower extremity pain, swelling, dilated bulging veins, skin changes and wounds for many years despite conservative medical therapy including medical compression stockings, exercise and analgesics. Prior procedures include endovenous laser ablation. Multiple incompetent varicosities of the left leg. Duplex scan showed reflux and enlarged diameters up to 7 mm. The patient underwent informed consent including management options where the complications of infection, bleeding, pain, and skin injury were discussed. Particular attention was spent discussing thrombus extension and deep vein thrombosis as well as the possibility of pulmonary embolus and treatment with oral or injectable blood thinners. Procedure: The patient walked to the procedure room. All applicable staff donned appropriate apparel. A procedure timeout was performed to confirm correct patient, correct extremity, correct procedure, and correct room set-up including presence of all applicable supplies, devices, and drugs. A duplex ultrasound, performed by myself confirmed the location and incompetence of branch saphenous varicosities and their course was marked on the skin together with the dilated tributaries. The extent of treatment of the vein and the associated varicosities was determined through ultrasound mapping. The skin was prepped and then punctured with a butterfly needle and advanced under ultrasound guidance. The Varithenaregistered canister was activated and the canister was primed and purged as required in the instructions for use. Varithenaregistered was drawn into a sterile syringe. Varithenaregistered was slowly administered at 0.5-1.0 cc/second with close observation by ultrasound of its course in the vessels. Total volume utilized was: 15 mL into a 7 mm varicosity distal medial lower leg. Following administration of Varithenaregistered the leg was elevated and the patient was asked to repeatedly dorsiflex the ankle to limit flow of Varithenaregistered into perforating veins. Once appropriate spasm had been confirmed in the treated veins, the vascular catheter was removed from the leg and light pressure was applied over the puncture site for hemostasis. The common femoral and deep superficial veins were then evaluated for flow and compressibility prior to dressing placement. The lower extremity was kept elevated at 45 degrees above the horizontal and cording material was applied over the saphenous segments and tributaries to allow for eccentric compression over the target vessels including the targeted saphenous vein(s). A multilayer dressing was applied consisting of foam pads, coban and thigh-high 20-30 mm Hg compression elastic support hose were placed on the patient. The leg was lowered only after compression had been applied and the patient was immediately ambulatory. The patient ambulated 10 minutes under supervision and was without apparent concerns at time of release. Post-care instructions include advising patient to keep post-treatment bandages in place and dry for 48 hours, avoid extended periods of inactivity, avoid heavy exercise for one week, wear compression stockings on the treated leg continuously for two weeks, to walk daily for 10 minutes over the next month. The patient was instructed to take an anti-inflammatory medicine as needed and to follow up for color duplex scan of the Saphenous veins, the treated branch saphenous varicosities, the adjacent deep veins, and additional treatment within 7 days. PERSONNEL: Rogers Morgan RN Electronically authenticated by: KM DE JESUS Date: 07/28/2023 13:05
== END 2023-07-28 11:19 | disposition home or self-care (01) ==
LOC: VC 11:18
PROVIDERS: PCP Radiology Diagnostic Radiology; Visit Provider Radiology Diagnostic Radiology
DX: I83.813 Varicose veins of bilateral lower extremities with pain (principal)
CPT/HCPCS: 36466

== ENCOUNTER 2023-08-04 13:16 | Outpatient (OUT) | payer MEDICARE, SELFPAY ==
--- NOTE | 2023-08-04 13:19 | VEIN_ITS ---
Patient Name: ARIANNE MCQUEEN MR#: [id number] : 1945 Exam Date: 08/04/2023 Ordering Doctor: DR AUSTIN BANKS M.D. RADIOLOGY REPORT PROCEDURE: VC EXT VENOUS LT LIMITED COMPARISON: VC EXT VENOUS LT LIMITED, 06/18/2023. VC EXT VENOUS LT LIMITED, 05/12/2023. INDICATIONS: Phlebitis of superficial vein of lt lower extremity I80.02 TECHNIQUE: Lower extremity dutta scale and Duplex Doppler evaluation of the deep venous system from the inguinal ligament through the calf veins. FINDINGS: REGION: Left lower extremity. THROMBI: Negative for DVT. Varithena induced thrombus visualized at dist/med calf. COMPRESSIBILITY: Non-compressible segments corresponding to thrombus FLOW: Areas of absent flow corresponding to thrombus OTHER: Multiple patent varicose veins remain largest is at mid/med calf and measures 4.3mm with 2.0s reflux. CONCLUSION: Post ablation occlusion of treated varicose veins. Residual patent incompetent varicose veins measuring up to 4.3 mm. Dictated by: Austin Banks MD on 08/04/2023 at 13:46 Approved by: Austin Banks MD on 08/04/2023 at 13:46
--- NOTE | 2023-08-04 13:19 | VEIN_ITS ---
Patient Name: ARIANNE MCQUEEN MR#: [id number] : 1945 Exam Date: 08/04/2023 Ordering Doctor: DR AUSTIN BANKS M.D. RADIOLOGY REPORT PROCEDURE: [facility] EST L[facility]D VEIN CENTER - OFFICE VISIT FOLLOW UP COMPARISON: [facility] EST LMTD, 07/15/2023. [facility] EST LMTD, 06/18/2023. PROGRESS NOTES: The patient reports no significant skin discomfort following micro foam chemical ablation of left leg incompetent varicose veins. The patient has worn his compression stockings. The patient did not require oral analgesics. The patient has partially followed our direction to exercise following the procedure Physical exam demonstrates mild interval reduction in left leg erythema skin thickening and swelling from his presenting exam. No areas of erythema, warmth or active ulceration. Review of the ultrasound performed the same day demonstrates occlusive thrombus extending throughout the treated left leg varicose veins. No deep vein thrombus. Residual patent varicose veins measuring up to 4.3 mm remains. The patient expressed a desire to proceed with treatment of close veins. VEIN/[facility] EST LMTD IMPRESSION: 1. Successful ablation of treated incompetent left leg varicose veins 2. Persistent bilateral incompetent varicose veins. PLAN: Micro foam chemical ablation right leg incompetent varicose veins Nurse notes, history and physical were reviewed and confirmed, see attached forms. The nurse was present throughout the physical exam and consultation Dictated by: Austin Banks MD on 08/04/2023 at 14:18 Approved by: Austin Banks MD on 08/04/2023 at 14:20
== END 2023-08-04 13:17 | disposition home or self-care (01) ==
LOC: VC 13:16
PROVIDERS: PCP Radiology Diagnostic Radiology; Visit Provider Radiology Diagnostic Radiology
DX: I80.02 Phlebitis and thrombophlebitis of superficial vessels of left lower extremity (principal)
CPT/HCPCS: 93971; G0463

== ENCOUNTER 2023-08-10 14:10 | Outpatient (OUT) | payer MEDICARE, SELFPAY ==
--- NOTE | 2023-08-10 14:21 | VEIN_ITS ---
[address] [address] Patient Name: ARIANNE MCQUEEN MRN: [id number] date: 1945 Sex: M Assigned Patient Location: Current Patient Location: Accession/Order Number: [id number] Exam Date: 08/10/2023 14:25 Report Date: 08/10/2023 15:35 At the request of: JOHANA MAGANA Procedure: VC INJ Foam Sclerosant WUS NAIL MAKER PROCEDURE: VC INJ Foam Sclerosant WUS NAIL MAKER COMPARISON: None. HISTORY: I83.813 Bilateral painful varicose veins Pre-operative Diagnosis: CEAP class C6 venous insufficiency with pain, tenderness, edema and incompetent right saphenous and varicose vein(s), chronic venous insufficiency right leg secondary to venous incompetence Post-operative Diagnosis: CEAP class C6 venous insufficiency with pain, tenderness, edema and incompetent right saphenous and varicose vein(s), chronic venous insufficiency right leg secondary to venous incompetence Procedure Performed: 1. Ultrasound-guided microfoam chemical ablation with Varithenaregistered 2. Intraoperative ultrasound guidance Anesthesia: None Indications for Procedure: 78-year-old male who presents with a long history of lower extremity pain and swelling skin thickening and venous stasis ulcerations. The patient failed year conservative medical therapy including medical compression stockings, exercise and analgesics. Prior procedures include . Multiple incompetent varicosities of the right leg. Duplex scan showed reflux and enlarged diameters up to 6 mm. The patient underwent informed consent including management options where the complications of infection, bleeding, pain, and skin injury were discussed. Particular attention was spent discussing thrombus extension and deep vein thrombosis as well as the possibility of pulmonary embolus and treatment with oral or injectable blood thinners. Procedure: The patient walked to the procedure room. All applicable staff donned appropriate apparel. A procedure timeout was performed to confirm correct patient, correct extremity, correct procedure, and correct room set-up including presence of all applicable supplies, devices, and drugs. A duplex ultrasound, performed by myself confirmed the location and incompetence of branch saphenous varicosities and their course was marked on the skin together with the dilated tributaries. The extent of treatment of the vein and the associated varicosities was determined through ultrasound mapping. The skin was prepped and then punctured with a butterfly needle and advanced under ultrasound guidance. The Varithenaregistered canister was activated and the canister was primed and purged as required in the instructions for use. Varithenaregistered was drawn into a sterile syringe. The following injections were made: 7 cc injected into a 6 mm distal right great saphenous vein at the right ankle 3 cc injected into a 5 mm distal right great saphenous vein distal leg 5 cc injected into a 5 mm vein right lateral mid lower leg Varithenaregistered was slowly administered at 0.5-1.0 cc/second with close observation by ultrasound of its course in the vessels. Total volume utilized was: 15cc. Following administration of Varithenaregistered the leg was elevated and the patient was asked to repeatedly dorsiflex the ankle to limit flow of Varithenaregistered into perforating veins. Once appropriate spasm had been confirmed in the treated veins, the vascular catheter was removed from the leg and light pressure was applied over the puncture site for hemostasis. The common femoral and deep superficial veins were then evaluated for flow and compressibility prior to dressing placement. The lower extremity was kept elevated at 45 degrees above the horizontal and cording material was applied over the saphenous segments and tributaries to allow for eccentric compression over the target vessels including the targeted saphenous vein(s). A multilayer dressing was applied consisting of foam pads, coban and thigh-high 20-30 mm Hg compression elastic support hose were placed on the patient. The leg was lowered only after compression had been applied and the patient was immediately ambulatory. The patient ambulated 10 minutes under supervision and was without apparent concerns at time of release. Post-care instructions include advising patient to keep post-treatment bandages in place and dry for 48 hours, avoid extended periods of inactivity, avoid heavy exercise for one week, wear compression stockings on the treated leg continuously for two weeks, to walk daily for 10 minutes over the next month. The patient was instructed to take an anti-inflammatory medicine as needed and to follow up for color duplex scan of the Saphenous veins, the treated branch saphenous varicosities, the adjacent deep veins, and additional treatment within 7 days. PERSONNEL: Rogers Morgan RN Electronically authenticated by: JOHANA MAGANA Date: 08/10/2023 15:35
== END 2023-08-10 14:11 | disposition home or self-care (01) ==
LOC: VC 14:17
PROVIDERS: PCP Radiology Diagnostic Radiology; Visit Provider Radiology Diagnostic Radiology
DX: I83.813 Varicose veins of bilateral lower extremities with pain (principal)
CPT/HCPCS: 36466

== ENCOUNTER 2023-08-13 13:48 | Outpatient (OUT) | payer MEDICARE, SELFPAY ==
--- NOTE | 2023-08-13 13:50 | VEIN_ITS ---
Patient Name: ARIANNE MCQUEEN MR#: [id number] : 1945 Exam Date: 08/13/2023 Ordering Doctor: DR JOHANA MAGANA M.D. RADIOLOGY REPORT PROCEDURE: VC EXT VENOUS RT LMTD COMPARISON: VC EXT VENOUS RT LMTD, 07/15/2023. INDICATIONS: Phlebitis of superficial veins of rt lower extremity I80.01 TECHNIQUE: Lower extremity dutta scale and Duplex Doppler evaluation of the deep venous system from the inguinal ligament through the calf veins. FINDINGS: REGION: Right lower extremity. THROMBI: Negative for DVT. Varithena induced thrombus visualized at medial ankle, distal GSV, and prox/med calf. COMPRESSIBILITY: Non-compressible segments corresponding to thrombus FLOW: Areas of no flow corresponding to thrombus OTHER: Multiple patient varicose veins remain. The largest vein remaining is at med/dist thigh 5.5mm with 1.0s reflux. CONCLUSION: 1. Successful post ablation occlusion of right leg treated branch saphenous varicosities. Dictated by: mK De Jesus M.D. on 08/13/2023 at 14:47 Approved by: Km De Jesus M.D. on 08/13/2023 at 14:49
--- NOTE | 2023-08-13 13:50 | VEIN_ITS ---
Patient Name: ARIANNE MCQUEEN MR#: [id number] : 1945 Exam Date: 08/13/2023 Ordering Doctor: DR JOHANA MAGANA M.D. RADIOLOGY REPORT PROCEDURE: [facility] C[facility] - OFFICE VISIT FOLLOW UP [facility] PROGRESS NOTES: The patient reports improvement in leg symptoms. There has been interval reduction in varicosities. The patient has followed our recommendations to walk 20-30 minutes once or twice per day since the procedure. Physical exam demonstrates decrease in varicosities of the leg. Persistent varicosities are identified along the legs bilaterally. Review of the ultrasound performed the same day demonstrates occlusive thrombus extending throughout the treated vein(s), see separate report, consistent with a successful ablation. No thrombus extending into or beyond the saphenofemoral junction. The patient expressed a desire to proceed with treatment of remaining branch saphenous varicosities. The patient was informed that treatment was a process and would require several procedures/sessions. [facility]: 1. Successful ablation of the treated right leg branch saphenous vein(s). 2. Persistent incompetent varicose veins and bilateral lower extremity symptoms. PLAN: Microfoam chemical ablation of remaining branch saphenous varicosities of the legs. Nurse notes, history and physical were reviewed and confirmed, see attached forms. The nurse was present throughout the physical exam and consultation Dictated by: Km De Jesus M.D. on 08/13/2023 at 14:49 Approved by: Km De Jesus M.D. on 08/13/2023 at 14:51
--- OUTSIDE RECORDS SUMMARY | 2023-08-13 13:52 | XMS_ITS | CCD ---
Author Name Unknown Address [address] [place] [address] Organization [facility] Care Team Providers Care Lithoplate Maker Name Role Phone MAL BARNES Primary Care Unavailable PAY, ROBIN Referring Unavailable MASROOR, GUDELIA Admitting Unavailable MASROOR, GUDELIA Attending Unavailable AKANKSHA UP Surgeon Unavailable [place] Procedure Practitioner Unavailab le [place] Procedure Practitioner Unavailab le NORBERTRORENE, GUDELIA Surgeon Unavailable Moshe Garcia Unavailable ARIELLA GALLEGO Admitting Unavailable ARIELLA GALLEGO Attending Unavailable MOLLY, DR MENEZES Primary Care Unavailable ARIELLA GALLEGO Consulting Unavailable MOUKARBEL, DR DOMINIQUE Admitting Unavailable MOUKARBEL, DR DOMINIQUE Attending Unavailable MOLLY, DR MENEZES Primary Care Unavailable MOUKARBEL, DR DOMINIQUE Consulting Unavailable MOUKARBEL, DR DOMINIQUE Admitting Unavailable MOUKARBEL, DR DOMINIQUE Attending Unavailable MOLLY, DR MENEZES Primary Care Unavailable MOUKARBEL, DR DOMINIQUE Consulting Unavailable JULIÁNARIELLA SHELTON Admitting Unavailable ARIELLA GALLEGO Attending Unavailable MOLLY, DR MENEZES Primary Care Unavailable MOLLY, DR MENEZES Primary Care Unavailable DEBI, CUBA H Admitting Unavailable MAX CARRERAIKH H Attending Unavailable ROBIN, DR NOREEN Oneill Consulting Unavailable JESSICA ., DR TODD Consulting Unavailable MIS, ESTUARDO Consulting Unavailable DEBI, CUBA H Consulting Unavailable MOLLY, DR MENEZES Admitting Unavailable MOLLY, DR MENEZES Attending Unavailable [place], DR MENEZES Primary Care Unavailable MOLLY, DR MENEZES Consulting Unavailable ROBIN, DR NOREEN Oneill Consulting Unavailable MOUKARBEL, DR DOMINIQUE Admitting Unavailable MOUKARBEL, DR DOMINIQUE Attending Unavailable MOLLY, DR MENEZES Primary Care Unavailable MOUKARBEL, DR DOMINIQUE Consulting Unavailable MOUKARBEL, DR DOMINIQUE Admitting Unavailable MOUKARBEL, DR DOMINIQUE Attending Unavailable MOLLY, DR MENEZES Primary Care Unavailable SUMRALL, DR JOHANA Alvarado Consulting Unavailable MOUKARBEL, DR DOMINIQUE Consulting Unavailable MOUKARBEL, DR DOMINIQUE Admitting Unavailable MARTIN, DR DOMINIQUE Attending Unavailable MOLLY, DR MENEZES Primary Care Unavailable MARTIN, DR DOMINIQUE Consulting Unavailable Mal Barnes Primary Care Unavailable Lisha Ortega Attending Unavailable Lisha Ortega Admitting Unavailable ARIELLA GALLEGO Attending Unavailable ARIELLA GALLEGO Attending Unavailable CATINA SALAZAR Attending Unavailable CATINA SALAZAR Attending Unavailable Medications Current Medications Medication Drug Class(es) Dates Sig (Normalized) Sig (Original) amLODIPine 10 mg oral tablet (1 source) Dihydropyridine Calcium Channel Stephanie take 1 tablet by mouth every twenty-four hours amLODIPine Besylate 10 MG 1 tablet Orally Once a day Active furosemide 40 mg oral tablet (1 source) Loop Diuretic take 1 tablet by mouth every twenty-four hours Furosemide 40 MG 1 tablet Orally Once a day Active metFORMIN hydrochloride 500 mg oral tablet (1 source) Biguanide take 1 tablet by mouth once daily metFORMIN HCl 500 MG 1 tablet with a meal Orally Once a day Active nabumetone 500 mg oral tablet (1 source) Nonsteroidal Anti-inflammatory Drug take 1 tablet by mouth every twelve hours Nabumetone 500 MG 1 tablet Orally Twice a day Active naproxen 250 mg oral tablet (1 source) Nonsteroidal Anti-inflammatory Drug take 2 tablets by mouth every twelve hours Naproxen 250 MG 2 tablets Orally every 12 hrs Active Completed/Discontinued Medications Medication Drug Class(es) Dates Sig (Normalized) Sig (Original) Ibuprofen (1 source) Nonsteroidal Anti-inflammatory Drug Ibuprofen Not-Taking traZODone hydrochloride 50 mg oral tablet (1 source) Serotonin Reuptake Inhibitor take 1 tablet by mouth every twenty-four hours traZODone HCl 50 MG 1 tablet at bedtime as needed Orally Once a day Not-Taking Triamcinolone (2 sources) Corticosteroid Start: 10-06-2019 Kenalog -40 mg Sep, 40 mg Start: 09-06-2019 Kenalog -40 mg Aug, 40 mg Problems Active Problems Problem Classification Problem Date Documented Date Episodic/Chronic Cardiac dysrhythmias (1 source) Unspecified atrial fibrillation; Translations: [UNSPECIFIED ATRIAL FIBRILLATION] Onset: 3 Chronic Congestive heart failure; nonhypertensive (7 sources) Chronic diastolic (congestive) heart failure; Translations: [CHRONIC DIASTOLIC HEART FAILURE] Onset: 2 Chronic Coronary atherosclerosis and other heart disease (6 sources) 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; Translations: [Atherosclerotic heart disease of augustine coronary artery with other forms of angina pectoris] Onset: 2 Chronic Coronary atherosclerosis and other heart disease (3 sources) Presence of aortocoronary bypass graft; Translations: [PRESENCE AORTOCORONARY BYPASS GRAFT] Onset: 2 Episodic Diabetes mellitus with complications (1 source) Type 2 diabetes mellitus with diabetic chronic kidney disease; Translations: [TYPE 2 DM W/DIABETIC CKD] Onset: 3 Chronic Disorders of lipid metabolism (1 source) Pure hypercholesterolemia, unspecified; Translations: [PURE HYPERCHOLESTEROLEMIA UNSPEC] Onset: 3 Chronic Essential hypertension (6 sources) Essential (primary) hypertension; Translations: [ESSENTIAL PRIMARY HYPERTENSION] Onset: 2 Chronic Hypertension with complications and secondary hypertension (1 source) Hypertensive heart and chronic kidney disease with heart failure and stage 1 through stage 4 chronic kidney disease, or unspecified chronic kidney disease; Translations: [HTN HRT CKD W/HF STAGE 1-4/UNS CKD] Onset: 3 Chronic Osteoarthritis (3 sources) Osteoarthritis of right hip joint; Translations: [Unilateral primary osteoarthritis, right hip] Onset: 2 Chronic Other aftercare (1 source) 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 (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; Translations: [DENTAL ASSOCIATE CURRENT USE OF ASPIRIN] Onset: 3 Episodic Other aftercare (1 source) care home (current) use of 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/antiplate lets; Translations: [RETIREMENT ANTITHROMBOT/ANTIPLATLETS ] Onset: 3 Episodic Other aftercare (1 source) Other jail (current) drug therapy; Translations: [OTH DENTAL ASSOCIATE CURRENT DRUG THERAPY] Onset: 3 Episodic Other aftercare (1 source) care home (current) use of oral hypoglycemic drugs; Translations: [RETIREMENT USE ORAL HYPOGLYCEMIC DX] Onset: 3 Episodic Other circulatory disease (1 source) Personal history of sudden cardiac arrest; Translations: [PERSONAL HISTORY SUDDEN CARD ARREST] Onset: 3 Episodic Other connective tissue disease (1 source) History of total knee arthroplasty; Translations: [Presence of right artificial knee joint] Chronic Other nutritional; endocrine; and metabolic disorders (1 source) Body mass index (BMI) 40.0-44.9, adult; Translations: [BODY MASS INDEX BMI 40.0-44.9 ADULT] Onset: 3 Chronic Other nutritional; endocrine; and metabolic disorders (1 source) Morbid (severe) obesity due to excess calories; Translations: [MORBID SEVERE OBES D/T EXCESS BRENT] Onset: 3 Chronic Pneumonia (except that caused by tuberculosis or sexually transmitted disease) (1 source) Unspecified bacterial pneumonia; Translations: [UNSPECIFIED BACTERIAL PNEUMONIA] Onset: 3 Episodic Residual codes; unclassified (1 source) Obstructive sleep apnea (adult) (pediatric); Translations: [OBSTRUCTIVE SLEEP APNEA] Onset: 3 Chronic Residual codes; unclassified (1 source) Edema, unspecified; Translations: [EDEMA UNSPECIFIED] Onset: 3 Episodic Residual codes; unclassified (1 source) Family history of ischemic heart disease and other diseases of the circulatory system; Translations: [FAM HX ISCHEMIC HRT DZ OTH DZ CIRC] Onset: 3 Episodic Respiratory failure; insufficiency; arrest (adult) (1 source) Acute respiratory failure with hypoxia; Translations: [ACUTE RESPIRATORY FAIL W/HYPOXIA] Onset: 3 Episodic Screening and history of mental health and substance abuse codes (1 source) Personal history of nicotine dependence; Translations: [PERSONAL HISTORY OF NICOTINE DEPEND] Onset: 3 Episodic Septicemia (except in labor) (4 sources) Sepsis, unspecified organism; Translations: [Severe sepsis without septic shock] Onset: 2 Episodic Unclassified (1 source) CONTACT W/AND (SUSP) EXPOS COVID-19; Translations: [CONTACT W/AND (SUSP) EXPOS COVID-19] Onset: 3 Unclassified (1 source) CHRN KIDNEY DISEASE STG 3 UNSP; Translations: [CHRN KIDNEY DISEASE STG 3 UNSP] Onset: 3 Unclassified (1 source) LOW BACK PAIN, UNSPECIFIED; Translations: [LOW BACK PAIN, UNSPECIFIED] Onset: 2 Unclassified (1 source) Non-pressure chronic ulcer of unspecified part of right lower leg limited to breakdown of skin; Translations: [Non-pressure chronic ulcer of unspecified part of right lower leg limited to breakdown of skin] Onset: 3 Unclassified (1 source) Other pericardial effusion (noninflammatory); Translations: [Other pericardial effusion (noninflammatory)] Onset: 2 Past or Other Problems Problem Classification Problem Date Documented Da te Episodic/Chronic Other lower respiratory disease (7 sources) Shortness of breath; Translations: [SHORTNESS OF BREATH] Onset: 07-14-2022 Episodic Other lower respiratory disease (2 sources) Other forms of dyspnea; Translations: [Other forms of dyspnea] Onset: 10-10-2022 Episodic Other non-traumatic joint disorders (4 sources) Pain in right hip; Translations: [PAIN IN RIGHT HIP] Onset: 05-08-2022 Episodic Nara-; endo-; and myocarditis; cardiomyopathy (except that caused by tuberculosis or sexually transmitted disease) (1 source) Pericardial effusion (noninflammatory); Translations: [PERICARDIAL EFFUSION NONINFLAMM] Onset: 2022 Episodic Unclassified (1 source) Other pericardial effusion (noninflammatory); Translations: [Other pericardial effusion (noninflammatory)] Onset: 06-05-2023 Results Test Name Value Interpretation Reference Range Facility Office Visiton 06-05-2023 Follow-up visit [id number] Luis M Mcqueen 1945 Date Provider Department Center 06/05/2023 CATINA ROBERTS SHILPI Santiago Family History Problem Relation Age of Onset Coronary artery disease Mother Family Status - Relation Status Age at Mother Level of Service:29555 [place] OFFICE/OUTPATIENT ESTABLISHED LOW MDM 20-29 MIN Reason for Visit and Comments: Follow-up [854791] Coronary Artery Disease [187] Congestive Heart Failure [127] Normal [facility] 36on 01-21-2023 35 His blood pressures are elevated. Goal is <130/90. Would like to start him on amlodipine 5mg daily. Follow-up in clinic in 3 months. THanks Normal [facility] Office Visiton 01-06-2023 Follow-up visit [id number] Luis M Mcqueen 1945 M Date Provider Department Center 01/06/2023 ARIELLA GRAVES CARD [facility] Family History Problem Relation Age of Onset Coronary artery disease Mother Family Status - Relation Status Age at Mother Level of Service:08648 [place] OFFICE/OUTPATIENT ESTABLISHED LOW MDM 20-29 MIN Reason for Visit and Comments: Coronary Artery Disease [187] Hypertension [190036] Congestive Heart Failure [127] Normal [facility] Office Visiton 10-10-2022 Follow-up visit [id number] Luis M Mcqueen jennifer Desai 1945 M Date Provider Department Center 10/10/2022 ARIELLA GRAVES CARD [facility] Family History Problem Relation Age of Onset Coronary artery disease Mother Family Status - Relation Status Age at Mother Level of Service:05295 [place] OFFICE/OUTPATIENT ESTABLISHED MOD MDM 30-39 MIN Reason for Visit and Comments: Cardiac Stress Test [489] Coronary Artery Disease [187] Shortness of Breath [617980] Normal [facility] BNPon 08-20-2022 Natriuretic peptide B (Bld) [Mass/Vol] 1748.0 pg/mL Normal <=1,800.0 [facility] Comment on above: Performed By: #### P OCGLUC #### [facility] [address] [place] [address] Dr. Deidre Tijerina CBC AUTO DIFFon 08-20-2022 BASO # 0.0 103/ul Normal 0.0-0.1 [facility] Comment on above: Performed By: #### C BC #### [facility] [address] [address] [address] Deidre Tijerina Basophils/100 WBC (Bld) 0.1 % Critically low 0.2-2.0 [facility] Comment on above: Performed By: #### C BC #### [facility] [address] [address] [address] Deidre Tijerina EO # 0.0 103/ul Normal 0.0-0.7 [facility] Comment on above: Performed By: #### C BC #### [facility] [address] [address] [address] Deidre Tijerina Eosinophils/100 WBC (Bld) 0.0 % Critically low 0.9-7.0 [facility] Comment on above: Performed By: #### C BC #### [facility] [address] [place] [address] Dr. Deidre Tijerina Erythrocyte distribution width (RBC) [Ratio] 13.6 % Normal 11.0-15.0 [facility] Comment on above: Performed By: #### C BC #### [facility] [address] [place] [address] Dr. Deidre Tijerina Hematocrit (Bld) [Volume fraction] 30.1 % Critically low 42.0-54.0 [facility] Comment on above: Performed By: #### C BC #### [facility] [address] [place] [address] Dr. Deidre Tijernia Hemoglobin (Bld) [Mass/Vol] 9.8 g/dL Critically low 14.0-18.0 [facility] Comment on above: Performed By: #### C BC #### [facility] [address] [place] [address] Dr. Deidre Tijerina IG # 0.13 10e3/ul Critically high 0.00-0.03 [facility] Comment on above: Performed By: #### C BC #### [facility] [address] [place] [address] Dr. Deidre Tijerina IG % 1.0 % Critically high 0.0-0.5 [facility] Comment on above: Performed By: #### C BC #### [facility] [address] [place] [address] Dr. Deidre Tijerina LYMPH # 1.2 103/ul Normal 1.2-3.8 [facility] Comment on above: Performed By: #### C BC #### [facility] [address] [place] [address] Dr. Deidre Tijerina Lymphocytes/100 WBC (Bld) 8.6 % Critically low 20.5-60.0 [facility] Comment on above: Performed By: #### C BC #### [facility] [address] [place] [address] Dr. Deidre Tijerina MANUAL DIFF REQ NO Normal [facility] Comment on above: Performed By: #### C BC #### [facility] [address] [address] [address] Deidre Tijerina MCH (RBC) [Entitic mass] 30.7 pg Normal 25.9-34.0 [facility] Comment on above: Performed By: #### C BC #### [facility] [address] [place] [address] Dr. Deidre Tijerina MCHC (RBC) [Mass/Vol] 32.6 g/dL Normal 29.9-35.2 [facility] Comment on above: Performed By: #### C BC #### [facility] [address] [place] [address] Dr. Deidre Tijerina MCV (RBC) [Entitic vol] 94.4 fL Critically high 80.0-94.0 [facility] Comment on above: Performed By: #### C BC #### [facility] [address] [place] [address] Dr. Deidre Tijerina MONO # 0.8 103/ul Normal 0.3-0.8 [facility] Comment on above: Performed By: #### C BC #### [facility] [address] [place] [address] Dr. Deidre Tijerina Monocytes/100 WBC (Bld) 6.2 % Normal 1.7-12.0 [facility] Comment on above: Performed By: #### C BC #### [facility] [address] [place] [address] Dr. Deidre Tijerina NEUT # 11.3 103/ul Critically high 1.4-6.5 [facility] Comment on above: Performed By: #### C BC #### [facility] [address] [place] [address] Dr. Deidre Tijerina Neutrophils/100 WBC (Bld) 84.1 % Critically high 43.0-75.0 [facility] Comment on above: Performed By: #### C BC #### [facility] [address] [place] [address] Dr. Deidre Tijerina Platelet mean volume (Bld) [Entitic vol] 9.3 fL Critically low 9.5-13.5 [facility] Comment on above: Performed By: #### C BC #### [facility] [address] [address] [address] Deidre Tijerina PLT 204 103/ul Normal 150-450 [facility] Comment on above: Performed By: #### C BC #### [facility] [address] [address] [address] Deidre Tijerina RBC 3.19 106/ul Critically low 4.70-6.10 [facility] Comment on above: Performed By: #### C BC #### [facility] [address] [address] [address] Deidre Tijerina WBC 13.5 103/ul Critically high 4.0-11.0 [facility] Comment on above: Performed By: #### C BC #### [facility] [address] [address] [address] Deidre Tijerina POINT OF CARE GLUCOSEon 07-25 Glucose [Mass/Vol] 164 mg/dL Critically high 74-106 [facility] Comment on above: Performed By: #### P OCGLUC #### [facility] [address] [address] [address] Deidre Tijerina PROF CHEM 8 (BAS METB)on Anion gap [Moles/Vol] 10.5 mmol/L Normal [facility] Comment on above: Performed By: #### P OCGLUC #### [facility] [address] [address] [address] Deidre Tijerina Calcium [Mass/Vol] 8.1 mg/dL Critically low 8.5-10.1 [facility] Comment on above: Performed By: #### P OCGLUC #### [facility] [address] [address] [address] Deidre Tijerina Chloride [Moles/Vol] 100 mmol/L Normal 98-107 [facility] Comment on above: Performed By: #### P OCGLUC #### [facility] [address] [address] [address] Deidre Tijerina CO2 [Moles/Vol] 24.4 mmol/L Normal 21.0-32.0 [facility] Comment on above: Performed By: #### P OCGLUC #### [facility] [address] [address] [address] Deidre Tijerina Creatinine [Mass/Vol] 1.17 mg/dL Normal 0.70-1.30 [facility] Comment on above: Performed By: #### P OCGLUC #### [facility] [address] [address] [address] Deidre Tijerina EGFR-AF KUWAITI >60 Normal >=60 [facility] Comment on above: Performed By: #### P OCGLUC #### [facility] [address] [address] [address] Deidre Tijerina EGFR-NON AF [place] 60 mL/min/1.73m2 Normal >=60 [facility] Comment on above: Performed By: #### P OCGLUC #### [facility] [address] [address] [address] Deidre Tijerina Glucose [Mass/Vol] 145 mg/dL Critically high 74-106 [facility] Comment on above: Performed By: #### P OCGLUC #### [facility] [address] [address] [address] Deidre Tijerina Potassium [Moles/Vol] 3.9 mmol/L Normal 3.5-5.1 [facility] Comment on above: Performed By: #### P OCGLUC #### [facility] [address] [address] [address] Deidre Tijerina Sodium [Moles/Vol] 131 mmol/L Critically low 136-145 [facility] Comment on above: Performed By: #### P OCGLUC #### [facility] [address] [address] [address] Deidre Tijerina Urea nitrogen [Mass/Vol] 37.0 mg/dL Critically high 7.0-18.0 [facility] Comment on above: Performed By: #### P OCGLUC #### [facility] [address] [address] [address] Deidre Tijerina Urea nitrogen/Creatinine [Mass ratio] 31.6 mg/mg Normal [facility] Comment on above: Performed By: #### P OCGLUC #### [facility] [address] [place] [address] Dr. Deidre Tijerina XR CHEST 1 Von 08-20-2022 XR CHEST 1 V EXAM: XR CHEST 1 V 08/20/2022. COMPARISON: CT of the chest 08/18/2022. FINDINGS: Single upright AP image was obtained. HISTORY: shortness of breath IMPRESSION: 1. Patient overall appears somewhat obese. Prominent bilateral epicardial fat pad formation again noted. Heart size is mildly prominent. 2. Left basilar predominant consolidative changes are again identified related to pneumonia similar to that seen on prior CT examination. No overt edema, failure, pneumothorax or effusion noted. 3. Old healed bilateral rib fracture deformities are again identified. Electronically authenticated by: ESTUARDO ABEBE Date: 2022-08-20 13:26 Normal [facility] BNPon 08-19-2022 Natriuretic peptide B (Bld) [Mass/Vol] 955.0 pg/mL Normal <=1,800.0 [facility] Comment on above: Performed By: #### C BC #### [facility] [address] [place] [address] Dr. Deidre Tijerina CBC W MANUAL DIFFon 08-19-20 22 ATYPICAL LYMPH # 0.28 103/ul Normal [facility] Comment on above: Performed By: #### P OCGLUC #### [facility] [address] [place] [address] Dr. Deidre Tijerina ATYPICAL LYMPH % 2 % Normal [facility] Comment on above: Performed By: #### P OCGLUC #### [facility] [address] [place] [address] Dr. Deidre Tijerina BAND # 0.0 103/ul Normal 0.0-0.3 [facility] Comment on above: Performed By: #### P OCGLUC #### [facility] [address] [place] [address] Dr. Deidre Tijerina BAND % 0 % Normal 0-5 [facility] Comment on above: Performed By: #### P OCGLUC #### [facility] [address] [place] [address] Dr. Deidre Tijerina BASOM # 0.00 103/ul Normal 0.00-0.10 [facility] Comment on above: Performed By: #### P OCGLUC #### [facility] [address] [place] [address] Dr. Deidre Tijerina BASOM % 0.0 % Critically low 0.2-2.0 [facility] Comment on above: Performed By: #### P OCGLUC #### [facility] [address] [address] [address] Deidre Tijerina BLAST # Normal [facility] Comment on above: Performed By: #### P OCGLUC #### [facility] [address] [address] [address] Deidre Tijerina BLAST % Normal [facility] Comment on above: Performed By: #### P OCGLUC #### [facility] [address] [place] [address] Dr. Deidre Tijerina CORRECTED WBC Normal 4.0-11.0 [facility] Comment on above: Performed By: #### P OCGLUC #### [facility] [address] [place] [address] Dr. Deidre Tijerina EOS # 0.00 103/ul Normal 0.00-0.70 [facility] Comment on above: Performed By: #### P OCGLUC #### [facility] [address] [place] [address] Dr. Deidre Tijerina EOS% 0.0 % Critically low 0.9-7.0 [facility] Comment on above: Performed By: #### P OCGLUC #### [facility] [address] [place] [address] Dr. Deidre Tijerina HCT 30.4 % Critically low 42.0-54.0 [facility] Comment on above: Performed By: #### P OCGLUC #### [facility] [address] [place] [address] Dr. Deidre Tijerina HGB 9.8 g/dl Critically low 14.0-18.0 [facility] Comment on above: Performed By: #### P OCGLUC #### [facility] [address] [place] [address] Dr. Deidre Tijerina LYMPHM # 0.43 103/ul Critically low 1.20-3.80 [facility] Comment on above: Performed By: #### P OCGLUC #### [facility] [address] [address] [address] Deidre Tijerina LYMPHM% 3.0 % Critically low 20.5-60.0 [facility] Comment on above: Performed By: #### P OCGLUC #### [facility] [address] [address] [address] Deidre Tijerina MCH 30.8 pg Normal 25.9-34.0 [facility] Comment on above: Performed By: #### P OCGLUC #### [facility] [address] [address] [address] Deidre Tijerina MCHC 32.2 g/dl Normal 29.9-35.2 [facility] Comment on above: Performed By: #### P OCGLUC #### [facility] [address] [address] [address] Deidre Tijerina MCV 95.6 fL Critically high 80.0-94.0 [facility] Comment on above: Performed By: #### P OCGLUC #### [facility] [address] [place] [address] Dr. Deidre Tijerina METAMYELOCYTE # Normal [facility] Comment on above: Performed By: #### P OCGLUC #### [facility] [address] [place] [address] Dr. Deidre Tijerina METAMYELOCYTE % Normal [facility] Comment on above: Performed By: #### P OCGLUC #### [facility] [address] [place] [address] Dr. Deidre Tijerina MONOM# 0.57 103/ul Normal 0.30-0.80 [facility] Comment on above: Performed By: #### P OCGLUC #### [facility] [address] [place] [address] Dr. Deidre Tijerina MONOM% 4.0 % Normal 1.7-12.0 [facility] Comment on above: Performed By: #### P OCGLUC #### [facility] [address] [address] [address] Deidre Tijerina MPV 9.1 fL Critically low 9.5-13.5 [facility] Comment on above: Performed By: #### P OCGLUC #### [facility] [address] [address] [address] Deidre Tijerina MYELOCYTE # Normal [facility] Comment on above: Performed By: #### P OCGLUC #### [facility] [address] [address] [address] Deidre Tijerina MYELOCYTE % Normal [facility] Comment on above: Performed By: #### P OCGLUC #### [facility] [address] [address] [address] Deidre Tijerina NRBC Normal [facility] Comment on above: Performed By: #### P OCGLUC #### [facility] [address] [address] [address] Deidre Tijerina PLT 188 103/ul Normal 150-450 [facility] Comment on above: Performed By: #### P OCGLUC #### [facility] [address] [address] [address] Deidre Tijerina RBC 3.18 106/ul Critically low 4.70-6.10 [facility] Comment on above: Performed By: #### P OCGLUC #### [facility] [address] [address] [address] Deidre Tijerina RDW 14.0 % Normal 11.0-15.0 [facility] Comment on above: Performed By: #### P OCGLUC #### [facility] [address] [address] [address] Deidre Tijerina SEG # 12.92 103/ul Critically high 1.40-6.50 [facility] Comment on above: Performed By: #### P OCGLUC #### [facility] [address] [address] [address] Deidre Tijerina SEG % 91.0 % Critically high 43.0-75.0 [facility] Comment on above: Performed By: #### P OCGLUC #### [facility] [address] [address] [address] Deidre Tijerina WBC 14.2 103/ul Critically high 4.0-11.0 [facility] Comment on above: Performed By: #### P OCGLUC #### [facility] [address] [address] [address] Deidre Tijerina POINT OF CARE GLUCOSEon 07-25 Glucose [Mass/Vol] 305 mg/dL Critically high 74-106 [facility] Comment on above: Performed By: #### P OCGLUC #### [facility] [address] [address] [address] Deidre Tijerina Glucose [Mass/Vol] 181 mg/dL Critically high -106 [facility] Comment on above: Performed By: #### C BC #### [facility] [address] [place] [address] Dr. Deidre Tijerina Glucose [Mass/Vol] 342 mg/dL Critically high -106 [facility] Comment on above: Performed By: #### P OCGLUC #### [facility] [address] [address] [address] Deidre Tijerina Glucose [Mass/Vol] 192 mg/dL Critically high -106 [facility] Comment on above: Performed By: #### P OCGLUC #### [facility] [address] [address] [address] Deidre Tijerina PROF CHEM 8 (BAS METB)on Anion gap [Moles/Vol] 10.3 mmol/L Normal [facility] Comment on above: Performed By: #### B MP, BNP #### [facility] [address] [address] [address] Deidre Tijerina Calcium [Mass/Vol] 7.9 mg/dL Critically low 8.5-10.1 [facility] Comment on above: Performed By: #### B MP, BNP #### [facility] [address] [address] [address] Deidre Tijerina Chloride [Moles/Vol] 100 mmol/L Normal 98-107 [facility] Comment on above: Performed By: #### B MP, BNP #### [facility] [address] [address] [address] Deidre Tijerina CO2 [Moles/Vol] 26.6 mmol/L Normal 21.0-32.0 [facility] Comment on above: Performed By: #### B MP, BNP #### [facility] [address] [address] [address] Deidre Tijerina Creatinine [Mass/Vol] 1.29 mg/dL Normal 0.70-1.30 [facility] Comment on above: Performed By: #### B MP, BNP #### [facility] [address] [address] [address] Deidre Tijerina EGFR-AF [place] >60 Normal >=60 [facility] Comment on above: Performed By: #### B MP, BNP #### [facility] [address] [address] [address] Deidre Tijerina EGFR-NON AF [place] 54 mL/min/1.73m2 Critically low >=60 [facility] Comment on above: Performed By: #### B MP, BNP #### [facility] [address] [address] [address] Deidre Tijerina Glucose [Mass/Vol] 190 mg/dL Critically high 74-106 [facility] Comment on above: Performed By: #### B MP, BNP #### [facility] [address] [address] [address] Deidre Tijerina Potassium [Moles/Vol] 3.9 mmol/L Normal 3.5-5.1 [facility] Comment on above: Performed By: #### B MP, BNP #### [facility] [address] [address] [address] Deidre Tijerina Sodium [Moles/Vol] 133 mmol/L Critically low 136-145 [facility] Comment on above: Performed By: #### B MP, BNP #### [facility] [address] [address] [address] Deidre Tijerina Urea nitrogen [Mass/Vol] 35.0 mg/dL Critically high 7.0-18.0 [facility] Comment on above: Performed By: #### B MP, BNP #### [facility] [address] [address] [address] Deidre Tijerina Urea nitrogen/Creatinine [Mass ratio] 27.1 mg/mg Normal [facility] Comment on above: Performed By: #### B MP, BNP #### [facility] [address] [address] [address] Deidre Tijerina BILIRUBIN CONJUGATED (DIRECT )on 08-18-2022 BILI, CONJUGATED 0.4 mg/dL Critically high 0.0-0.2 [facility] Comment on above: Performed By: #### P OCGLUC #### [facility] [address] [address] [address] Deidre Tijerina BLOOD GASES BTYon 08-18-2022 02 MODE BIPAP Normal [facility] Comment on above: Performed By: #### P OCGLUC #### [facility] [address] [place] [address] Dr. Deidre Tijerina ALLENS TEST Positive [facility] Comment on above: Performed By: #### P OCGLUC #### [facility] [address] [address] [address] Deidre Tijerina Base excess Calc (Bld) [Moles/Vol] 1.0 mmol/L Normal -2.0-2.0 [facility] Comment on above: Performed By: #### P OCGLUC #### [facility] [address] [address] [address] Deidre Tijerina BIPAP PRESSURE 16/8 Normal [facility] Comment on above: Performed By: #### P OCGLUC #### [facility] [address] [address] [address] Deidre Tijerina CPAP Normal [facility] Comment on above: Performed By: #### P OCGLUC #### [facility] [address] [place] [address] Dr. Deidre Tijerina FIO2 35.00 % [facility] Comment on above: Performed By: #### P OCGLUC #### [facility] [address] [address] [address] Deidre Tijerina HCO3 (Bld) [Moles/Vol] 25.0 mmol/L Normal 22.0-26.0 [facility] Comment on above: Performed By: #### P OCGLUC #### [facility] [address] [place] [address] Dr. Deidre Tijerina LPM [facility] Comment on above: Performed By: #### P OCGLUC #### [facility] [address] [address] [address] Deidre Tijerina MINUTE VOLUME 21 L Normal [facility] Comment on above: Performed By: #### P OCGLUC #### [facility] [address] [place] [address] Dr. Deidre Tijerina Oxygen (Bld) [Partial pressure] 83.4 mm[Hg] Normal 80.0-100.0 [facility] Comment on above: Performed By: #### P OCGLUC #### [facility] [address] [place] [address] Dr. Deidre Tijerina Oxygen saturation in Blood 97.5 % Normal 95.0-100.0 [facility] Comment on above: Performed By: #### P OCGLUC #### [facility] [address] [place] [address] Dr. Deidre Tijerina PCO2 36.2 mmHg Normal 35.0-45.0 [facility] Comment on above: Performed By: #### P OCGLUC #### [facility] [address] [place] [address] Dr. Deidre Tijerina PEEP 8 [facility] Comment on above: Performed By: #### P OCGLUC #### [facility] [address] [place] [address] Dr. Deidre Tijerina pH (Bld) 7.440 [pH] Normal 7.350-7.450 [facility] Comment on above: Performed By: #### P OCGLUC #### [facility] [address] [place] [address] Dr. Deidre Tijerina PIP 17 Normal [facility] Comment on above: Performed By: #### P OCGLUC #### [facility] [address] [place] [address] Dr. Deidre Tijerina PS 8 Normal [facility] Comment on above: Performed By: #### P OCGLUC #### [facility] [address] [place] [address] Dr. Deidre Tijerina PUNCTURE SITE RR Normal [facility] Comment on above: Performed By: #### P OCGLUC #### [facility] [address] [place] [address] Dr. Deidre Tijerina RATE 14 bpm [facility] Comment on above: Performed By: #### P OCGLUC #### [facility] [address] [place] [address] Dr. Deidre Tijerina VENT MODE [facility] Comment on above: Performed By: #### P OCGLUC #### [facility] [address] [place] [address] Dr. Deidre Tijerina VT 945 ML [facility] Comment on above: Performed By: #### P OCGLUC #### [facility] [address] [place] [address] Dr. Deidre Tijerina BNPon 08-18-2022 Natriuretic peptide B (Bld) [Mass/Vol] 2561.0 pg/mL Critically high <=1,800.0 [facility] Comment on above: Performed By: #### P OCGLUC #### [facility] [address] [place] [address] Dr. Deidre Tijerina CBC W MANUAL DIFFon 08-18-20 ANISOCYTOSIS 1+ [facility] Comment on above: Performed By: #### C BCMAN #### [facility] [address] [place] [address] Dr. Deidre Tijerina ATYPICAL LYMPH # Normal [facility] Comment on above: Performed By: #### C BCMAN #### [facility] [address] [place] [address] Dr. Deidre Tijerina ATYPICAL LYMPH % Normal [facility] Comment on above: Performed By: #### C BCMAN #### [facility] [address] [place] [address] Dr. Deidre Tijerina BAND # 1.2 103/ul Critically high 0.0-0.3 [facility] Comment on above: Performed By: #### C BCMAN #### [facility] [address] [address] [address] Deidre Tijerina BAND % 7 % Critically high 0-5 [facility] Comment on above: Performed By: #### C BCMAN #### [facility] [address] [address] [address] Deidre Tijerina BASOM # 0.00 103/ul Normal 0.00-0.10 [facility] Comment on above: Performed By: #### C BCMAN #### [facility] [address] [address] [address] Deidre Tijerina BASOM % 0.0 % Critically low 0.2-2.0 [facility] Comment on above: Performed By: #### C BCNICOLASA #### [facility] [address] [place] [address] Dr. Deidre Tijerina BLAST # Normal [facility] Comment on above: Performed By: #### C BCNICOLASA #### [facility] [address] [place] [address] Dr. Deidre Tijerina BLAST % Normal [facility] Comment on above: Performed By: #### C BCNICOLASA #### [facility] [address] [place] [address] Dr. Deidre Tijerina CORRECTED WBC Normal 4.0-11.0 [facility] Comment on above: Performed By: #### C BCNICOLASA #### [facility] [address] [place] [address] Dr. Deidre Tijerina EOS # 0.17 103/ul Normal 0.00-0.70 [facility] Comment on above: Performed By: #### C BCNICOLASA #### [facility] [address] [place] [address] Dr. Deidre Tijerina EOS% 1.0 % Normal 0.9-7.0 [facility] Comment on above: Performed By: #### C BCNICOLASA #### [facility] [address] [place] [address] Dr. Deidre Tijerina HCT 34.8 % Critically low 42.0-54.0 [facility] Comment on above: Performed By: #### C BCMAN #### [facility] [address] [place] [address] Dr. Deidre Tijerina HGB 11.5 g/dl Critically low 14.0-18.0 [facility] Comment on above: Performed By: #### C BCMAN #### [facility] [address] [address] [address] Deidre Tijerina LYMPHM # 1.20 103/ul Normal 1.20-3.80 [facility] Comment on above: Performed By: #### C BCMAN #### [facility] [address] [place] [address] Dr. Deidre Tijerina LYMPHM% 7.0 % Critically low 20.5-60.0 [facility] Comment on above: Performed By: #### C BCNICOLASA #### [facility] [address] [place] [address] Dr. Deidre Tijerina MCH 31.5 pg Normal 25.9-34.0 [facility] Comment on above: Performed By: #### C BCNICOLASA #### [facility] [address] [place] [address] Dr. eDidre Tijerina MCHC 33.0 g/dl Normal 29.9-35.2 [facility] Comment on above: Performed By: #### C BCNICOLASA #### [facility] [address] [place] [address] Dr. Deidre Tijerina MCV 95.3 fL Critically high 80.0-94.0 [facility] Comment on above: Performed By: #### C BCMAN #### [facility] [address] [place] [address] Dr. Deidre Tijerina METAMYELOCYTE # Normal [facility] Comment on above: Performed By: #### C BCMAN #### [facility] [address] [place] [address] Dr. Deidre Tijerina METAMYELOCYTE % Normal [facility] Comment on above: Performed By: #### C BCMAN #### [facility] [address] [address] [address] Deidre Tijerina MONOM# 1.03 103/ul Critically high 0.30-0.80 [facility] Comment on above: Performed By: #### C ADALGISA #### [facility] [address] [place] [address] Dr. Deidre Tijerina MONOM% 6.0 % Normal 1.7-12.0 [facility] Comment on above: Performed By: #### C ADALGISA #### [facility] [address] [place] [address] Dr. Deidre Tijerina MPV 8.7 fL Critically low 9.5-13.5 [facility] Comment on above: Performed By: #### C ADALGISA #### [facility] [address] [place] [address] Dr. Deidre Tijerina MYELOCYTE # Normal [facility] Comment on above: Performed By: #### C ADALGISA #### [facility] [address] [place] [address] Dr. Deidre Tijerina MYELOCYTE % Normal [facility] Comment on above: Performed By: #### C ADALGISA #### [facility] [address] [place] [address] Dr. Deidre Tijerina NRBC Normal [facility] Comment on above: Performed By: #### C ADALGISA #### [facility] [address] [place] [address] Dr. Deidre Tijerina PLT 212 103/ul Normal 150-450 [facility] Comment on above: Performed By: #### C ADALGISA #### [facility] [address] [place] [address] Dr. Deidre Tijerina RBC 3.65 106/ul Critically low 4.70-6.10 [facility] Comment on above: Performed By: #### C ADALGISA #### [facility] [address] [place] [address] Dr. Deidre Tijerina RDW 14.0 % Normal 11.0-15.0 [facility] Comment on above: Performed By: #### C ADALGISA #### [facility] [address] [place] [address] Dr. Deidre Tijerina SEG # 13.59 103/ul Critically high 1.40-6.50 [facility] Comment on above: Performed By: #### C ADALGISA #### [facility] [address] [address] [address] Deidre Tijerina SEG % 79.0 % Critically high 43.0-75.0 [facility] Comment on above: Performed By: #### C ADALGISA #### [facility] [address] [address] [address] Deidre Tijerina WBC 17.2 103/ul Critically high 4.0-11.0 [facility] Comment on above: Performed By: #### C ADALGISA #### [facility] [address] CHEST WO CONon 08-18-2022 CT CHEST WO CON EXAMINATION: CT CHES T WO CON HISTORY: SHORTNESS OF BREATH increasing in severity COMPARISON: CT chest 05/14/2021 TECHNIQUE: Axial, Coronal, and Sagittal images were created without the administration of IV contrast material. Dose reduction techniques were achieved by using automated exposure control and/or adjustment of mA and/or kV according to patient size and/or use of iterative reconstruction technique. FINDINGS: LUNGS: Dense infiltrate within the superior and basilar segments of the left lower lobe. PLEURA: No mass, effusion, or pneumothorax. VASCULATURE: No abnormality. GAGE: No mass or adenopathy. MEDIASTINUM: No mass or adenopathy. CARDIAC: No enlargement or pericardial thickening. AORTA: No aneurysm or dissection. CHEST WALL: No mass or axillary adenopathy. BONES: No bone lesion or fracture. LIMITED ABDOMEN: No suspicious findings. Limited images of the upper abdomen. OTHER: Negative. IMPRESSION: 1. Marked, dense infiltrates within left lower lobe favoring pneumonia. Follow-up to document clearing is recommended. Electronically authenticated by: NOREEN KELLY Date: 2022-08-18 12:12 Normal [facility] CULTURE BLOODon 08-18-2022 Microscopic examination of blood, culture Culture Observations: NO GROWTH AT 5 DAYS. Normal [facility] Comment on above: Performed By: #### C BONILLA #### [facility] [address] [address] [address] Deidre Tijerina Microscopic examination of blood, culture Culture Observations: NO GROWTH AT 5 DAYS. Normal [facility] Comment on above: Performed By: #### C BC #### [facility] [address] [place], [place] [address] Dr. Deidre Tijerina Covid-19 PCR ([facility])on 07-25 SARS-CoV-2 (COVID-19) RNA ISA+probe Ql (Unsp spec) Not detected Normal NOT DETECTED [facility] Comment on above: Result Comment: When diagnostic testing is negative, the possibility of a false negative should be considered in the context of a patient's recent exposures and the presence of clinical signs and symptoms consistent with SARS-CoV-2. This test is not yet approved or cleared by the [place] FDA. When there are no FDA-approved or cleared tests available, and other criteria are met, FDA can make tests available under an emergency access mechanism called an Emergency Use Authorization (EUA). The EUA for this test is supported by the Char Filter Operator of Health and Human Service's declaration that circumstances exist to justify the emergency use of in vitro diagnostics for the detection and/or diagnosis of the virus that causes COVID-19. This EUA will remain in effect for the duration of the COVID-19 declaration justifying emergency of IVDs, unless it is terminated or revoked by the FDA (after which the test may no longer be used). Performed By: #### P OCGLUC #### [facility] [address] [place], [place] [address] Dr. Deidre Tijerina ECHO LIMITED STUDYon 022 ECHO LIMITED STUDY Patient: UMM MCQUEEN Exam Date: 08/18/2022 : 1945 Gender:M Ordering : SHAIKH Zay CARRERA . Admission #: [id number] Family : Order #: [id number] CLICK HERE TO VIEW EXAM ECHOCARDIOGRAM REPORT PROCEDURE: CARDIO PULMONARY ECHO LIMITED STUDY INDICATIONS: Shortness of breath COMPARISON: None. DESCRIPTION: Limited ECHOCARDIOGRAM Real-time transthoracic echocardiography with 2D and M-mode performed. QUALITY: Technical quality was limited. LEFT VENTRICLE: Normal chamber size. Moderate concentric left ventricular hypertrophy. LV EF: Global left ventricular systolic function is difficult to assess but appears normal; visual estimation of left ventricular ejection fraction is 55-60%. Cannot comment on regional wall motion abnormalities. LEFT ATRIUM: Moderate dilatation. RIGHT ATRIUM: Mild dilatation. RIGHT VENTRICLE: Mild dilatation. Decreased right ventricular systolic function. TRICUSPID VALVE: Grossly normal. MITRAL VALVE: Grossly normal. There is no mitral annular calcification. AORTIC VALVE: Normal trileaflet appearance. No visible sclerosis. AORTIC ROOT: Normal diameter and appearance. PULMONIC VALVE: Not well visualized. PERICARDIUM: Anterior free space; trivial effusion versus fat pad. IVC: Collapses with inspirations. Normal size. CONCLUSION: Global left ventricular systolic function is difficult to assess but appears preserved; visually estimated ejection fraction is 55 to 60%. Moderate left ventricular hypertrophy. Biatrial enlargement. The right ventricle appears dilated with reduced systolic function. Anterior free space; trivial effusion versus fat pad. The limited echocardiogram was performed. Adult Echocardiography Procedure Report Left Ventricle LVEDD (3.7 - 5.6 cm): 5.11 cm LVESD (2.2 - 4.0 cm): 3.11 cm LVIVS thickness (0.6 - 1.2 cm): 1.43 cm LVPW thickness (0.5 - 1.0 cm): 1.54 cm LVOT Diameter 2.57 cm Left Ventricular Ejection Fraction: 69.40 %, 69.40 % Left Atrium LA Volume Index (2D A2C): 111.90 ml, 111.90 ml Left Atrium Systolic Dimension: 3.83 cm Mitral Valve Right Ventricle RV Internal Diastolic Dimension: 4.10 cm Aorta AO Root Diam: 3.23 cm Aortic Valve Tricuspid Valve Pulmonic Valve Right Atrium Right Atrium Systolic Pressure: 76.59 ml, 76.59 ml Dictated by: Ariella Leonard M.D. on 08/26/2022 at 08:57 Approved by: Ariella Leonard M.D. on 08/26/2022 at 09:00 Normal [facility] INFLUENZA A AND B AGon 08-18 INFLUANEGH SEE BELOW Normal [facility] Comment on above: Result Comment: Nega tive for Flu A protein angiten. Infection due to Flu A cannot be ruled out. Flu A angiten in the sample may be below the detection limit of the test. Performed By: #### P OCGLUC #### [facility] [address] [address] [facility] SEE BELOW Normal [facility] Comment on above: Result Comment: Nega tive for Flu B protein antigen. Infection due to Flu B cannot be ruled out. Flu B antigen in the sample may be below the detection limit of the test. Performed By: #### P OCGLUC #### [facility] [address] [address] [address] Deidre Tijerina INFLUENZA A AG Negative Normal NEGATIVE SEE COMMENT [facility] Comment on above: Performed By: #### P OCGLUC #### [facility] [address] [address] [address] Deidre Tijerina INFLUENZA B AG Negative Normal NEGATIVE SEE COMMENT [facility] Comment on above: Performed By: #### P OCGLUC #### [facility] [address] [place] [address] Dr. Deidre Tijerina INTERNAL CONTROLS Within Normal Limits Normal Wi thin Normal Limits [facility] Comment on above: Performed By: #### P OCGLUC #### [facility] [address] [place] [address] Dr. Deidre Tijerina LACTATE/LACTIC ACIDon 2021 Lactate [Moles/Vol] 2.0 mmol/L Critically high 0.4-1.9 [facility] Comment on above: Performed By: #### P OCGLUC #### [facility] [address] [place] [address] Dr. Deidre Tijerina Lactate [Moles/Vol] 2.0 mmol/L Critically high 0.4-1.9 [facility] Comment on above: Performed By: #### P OCGLUC #### [facility] [address] [place] [address] Dr. Deidre Tijerina POINT OF CARE GLUCOSEon 07-25 Glucose [Mass/Vol] 228 mg/dL Critically high 74-106 [facility] Comment on above: Performed By: #### P OCGLUC #### [facility] [address] [address] [address] Deidre Tijerina Glucose [Mass/Vol] 119 mg/dL Critically high 74-106 [facility] Comment on above: Performed By: #### P OCGLUC #### [facility] [address] [address] [address] Deidre Tijerina Glucose [Mass/Vol] 161 mg/dL Critically high 74-106 [facility] Comment on above: Performed By: #### C BC #### [facility] [address] [address] [address] Deidre Tijerina PROF 14(COMP METB)on 022 Albumin [Mass/Vol] 2.9 g/dL Critically low 3.4-5.0 [facility] Comment on above: Performed By: #### P OCGLUC #### [facility] [address] [place] [address] Dr. Deidre Tijerina Albumin/Globulin [Mass ratio] 0.6 {ratio} Normal [facility] Comment on above: Performed By: #### P OCGLUC #### [facility] [address] [address] [address] Deidre Tijerina ALP [Catalytic activity/Vol] 71 U/L Normal 46-116 [facility] Comment on above: Performed By: #### P OCGLUC #### [facility] [address] [address] [address] Deidre Tijerina ALT [Catalytic activity/Vol] 13 U/L Critically low 16-63 [facility] Comment on above: Performed By: #### P OCGLUC #### [facility] [address] [address] [address] Deidre Tijerina Anion gap [Moles/Vol] 12.3 mmol/L Normal [facility] Comment on above: Performed By: #### P OCGLUC #### [facility] [address] [address] [address] Deidre Tijerina AST [Catalytic activity/Vol] 14 U/L Critically low 15-37 [facility] Comment on above: Performed By: #### P OCGLUC #### [facility] [address] [place] [address] Dr. Deidre Tijerina Bilirubin [Mass/Vol] 2.6 mg/dL Critically high 0.2-1.0 [facility] Comment on above: Performed By: #### P OCGLUC #### [facility] [address] [address] [address] Deidre Tijerina Calcium [Mass/Vol] 8.5 mg/dL Normal 8.5-10.1 [facility] Comment on above: Performed By: #### P OCGLUC #### [facility] [address] [address] [address] Deidre Tijerina Chloride [Moles/Vol] 98 mmol/L Normal 98-107 [facility] Comment on above: Performed By: #### P OCGLUC #### [facility] [address] [address] [address] Deidre Tijerina CO2 [Moles/Vol] 26.0 mmol/L Normal 21.0-32.0 [facility] Comment on above: Performed By: #### P OCGLUC #### [facility] [address] [address] [address] Deidre Tijerina Creatinine [Mass/Vol] 1.43 mg/dL Critically high 0.70-1.30 [facility] Comment on above: Performed By: #### P OCGLUC #### [facility] [address] [address] [address] Deidre Tijerina EGFR-AF KU[place]I 58 mL/min/1.73m2 Critically low >=60 [facility] Comment on above: Performed By: #### P OCGLUC #### [facility] [address] [address] [address] Deidre Tijerina EGFR-NON AF [place]I 48 mL/min/1.73m2 Critically low >=60 [facility] Comment on above: Performed By: #### P OCGLUC #### [facility] [address] [address] [address] Deidre Tijerina Globulin (S) [Mass/Vol] 5.0 g/dL Normal [facility] Comment on above: Performed By: #### P OCGLUC #### [facility] [address] [address] [address] Deidre Tijerina Glucose [Mass/Vol] 165 mg/dL Critically high 74-106 [facility] Comment on above: Performed By: #### P OCGLUC #### [facility] [address] [address] [address] Deidre Tijerina Potassium [Moles/Vol] 4.3 mmol/L Normal 3.5-5.1 [facility] Comment on above: Performed By: #### P OCGLUC #### [facility] [address] [address] [address] Deidre Tijerina Protein [Mass/Vol] 7.9 g/dL Normal 6.4-8.2 [facility] Comment on above: Performed By: #### P OCGLUC #### [facility] [address] [address] [address] Deidre Tijerina Sodium [Moles/Vol] 132 mmol/L Critically low 136-145 [facility] Comment on above: Performed By: #### P OCGLUC #### [facility] [address] [address] [address] Deidre Tijerina Urea nitrogen [Mass/Vol] 25.0 mg/dL Critically high 7.0-18.0 [facility] Comment on above: Performed By: #### P OCGLUC #### [facility] [address] [address] [address] Deidre Tijerina Urea nitrogen/Creatinine [Mass ratio] 17.5 mg/mg Normal [facility] Comment on above: Performed By: #### P OCGLUC #### [facility] [address] [address] [address] Deidre Tijerina TROPONIN, HIGH SENSITIVITYon 08-18-2022 HSTROP 8.4 pg/mL Normal 4.0-76.1 [facility] Comment on above: Result Comment: CUT- OFF POINTS HAVE BEEN ESTABLISHED BASED ON THE FOURTH UNIVERSAL DEFINITIONS OF MYOCARDIAL INFARCTION. THE UPPER REFERENCE LIMIT (URL) OF TROPONIN, DEFINED THE 99TH PERCENTILE OF cTnI DISTRIBUTION IN A REFERENCE POPULATION, HAS BEEN CONFIRMED THE DECISION THRESHOLD FOR NM DIAGNOSIS. Performed By: #### P OCGLUC #### [facility] [address] [address] [address] Deidre Tijerina XR CHEST 1 Von 08-18-2022 XR CHEST 1 V EXAM: XR CHEST 1 V 08/18/2022 COMPARISON STUDY: AP chest 09/15/2021. FINDINGS: Single upright AP chest image was obtained. The image is quite underpenetrated making it difficult to accurately evaluate lower lung zones and retrocardiac region. HISTORY: SHORTNESS OF BREATH IMPRESSION: 1. There is stable mild/moderate enlargement of the cardiac silhouette. Mild atherosclerotic change of the aorta again noted. 2. Abnormal increased opacity overlapping lower lung zones is nonspecific and may be related to underpenetration. This is asymmetrically greater toward the left. There is partial obscuration of the left heart border and hemidiaphragmatic contour. A small portion of the left costophrenic angle is excluded from the [id number]. 3. No overt edema, failure, pneumothorax, or sizable effusion noted within limits of study. 4. Old healed nondisplaced anterior right fifth rib fracture deformity faintly suggested. Electronically authenticated by: ESTUARDO ABEBE Date: 2022-08-18 09:37 Normal [facility] STRESS/REST MULTIon 08-04 AL STRESS/REST MULTI Patient: ARIANNE MCQUEEN Exam Date: 08/04/2022 : 1945 Gender:M Ordering : DR CATINA SALAZAR M.D. Admission #: [id number] Family : Order #: [id number] CLICK HERE TO VIEW EXAM RADIOLOGY REPORT PROCEDURE: RADIONUCLIDE IMAGING STRESS/REST MULTI COMPARISON: NM STRESS/REST MULTI, 12/14/2020. INDICATIONS: Dyspnea on exertion TECHNIQUE: Exam Description: Stress/Rest two day protocol gated SPECT Rest Imagin.5 mCi Tc-99m Cardiolite IV on 08/04/2022 Stress Imaging 26.0 mCi Tc-99m Cardiolite IV on 08/05/2022 Exercise Protocol: 0.4 mg Lexiscan given IV Heart Rate (bpm): Rest: 61 Max: 78 PMHR: 54 Blood Pressure: Rest: 148/72 Max: 148/72 Symptoms: Rest and peak stress ECG findings were normal and the exercise portion of the study was normal per attending physician Dr. Axel Martell . For more details please see separate cardiac stress test report. FINDINGS: QUALITY OF STUDY: Good. PERFUSION DEFECT: None. LOCATION: N/A SIZE: N/A. SEVERITY: N/A. TYPE: N/A. WALL MOTION: Normal. LV SIZE: Normal. 116 mL. TID / TCD: None; 0.9 LVEF: Normal. Calculated EF 71%. SUMMARY: Myocardial perfusion imaging study is NORMAL. CONCLUSION: 1. Normal myocardial scan with no reversible ischemia 2. Normal exercise test Dictated by: Johana Banks MD on 08/07/2022 at 08:27 Approved by: Johana Banks MD on 08/07/2022 at 08:29 Normal [facility] BNPon 07-14-2022 Natriuretic peptide B (Bld) [Mass/Vol] 164.0 pg/mL Normal <=1,800.0 [facility] Comment on above: Performed By: #### B ANIMAL CARE SUPERVISOR, BMP #### [facility] [address] [place] [address] Dr. Deidre Tijerina Follow-Upon 07-14-2022 Follow-Up [id number] Luis M Mcqueen jennifer Desai 1945 M Date Provider Department Center 07/14/2022 CATINA ROBERTS [facility] Family History Problem Relation Age of Onset Coronary artery disease Mother Family Status - Relation Status Age at Mother Level of Service:92445 [place] OFFICE/OUTPATIENT ESTABLISHED MOD MDM 30-39 MIN Reason for Visit and Comments: Coronary Artery Disease [187] Hypertension [086275] Hyperlipidemia [182] Normal [facility] PROF CHEM 8 (BAS METB)on Anion gap [Moles/Vol] 9.2 mmol/L Normal [facility] Comment on above: Performed By: #### B ANIMAL CARE SUPERVISOR, BMP #### [facility] [address] [place] [address] Dr. Deidre Tijerina Calcium [Mass/Vol] 8.4 mg/dL Critically low 8.5-10.1 [facility] Comment on above: Performed By: #### B ANIMAL CARE SUPERVISOR, BMP #### [facility] [address] [place] [address] Dr. Deidre Tijerina Chloride [Moles/Vol] 106 mmol/L Normal 98-107 [facility] Comment on above: Performed By: #### B ANIMAL CARE SUPERVISOR, BMP #### [facility] [address] [place] [address] Dr. Deidre Tijerina CO2 [Moles/Vol] 27.0 mmol/L Normal 21.0-32.0 [facility] Comment on above: Performed By: #### B ANIMAL CARE SUPERVISOR, BMP #### [facility] [address] [address] [address] Deidre Tijerina Creatinine [Mass/Vol] 1.38 mg/dL Critically high 0.70-1.30 [facility] Comment on above: Performed By: #### B ANIMAL CARE SUPERVISOR, BMP #### [facility] [address] [address] [address] Deidre Tijerina EGFR-AF KU[place]I =60 Normal >=60 [facility] Comment on above: Performed By: #### B ANIMAL CARE SUPERVISOR, BMP #### [facility] [address] [place] [address] Dr. Deidre Tijerina EGFR-NON AF [place]I 50 mL/min/1.73m2 Critically low >=60 [facility] Comment on above: Performed By: #### B ANIMAL CARE SUPERVISOR, BMP #### [facility] [address] [place] [address] Dr. Deidre Tijerina Glucose [Mass/Vol] 95 mg/dL Normal 74-106 [facility] Comment on above: Performed By: #### B ANIMAL CARE SUPERVISOR, BMP #### [facility] [address] [place] [address] Dr. Deidre Tijerina Potassium [Moles/Vol] 5.2 mmol/L Critically high 3.5-5.1 [facility] Comment on above: Performed By: #### B ANIMAL CARE SUPERVISOR, BMP #### [facility] [address] [place] [address] Dr. Deidre Tijerina Sodium [Moles/Vol] 137 mmol/L Normal 136-145 [facility] Comment on above: Performed By: #### B ANIMAL CARE SUPERVISOR, BMP #### [facility] [address] [address] [address] Deidre Tijerina Urea nitrogen [Mass/Vol] 25.0 mg/dL Critically high 7.0-18.0 [facility] Comment on above: Performed By: #### B ANIMAL CARE SUPERVISOR, BMP #### [facility] [address] [place], [place] [address] Dr. eDidre Tijerina Urea nitrogen/Creatinine [Mass ratio] 18.1 mg/mg Normal [facility] Comment on above: Performed By: #### B CUAUHTEMOC, CLEMENCIA #### [facility] [id number] Deidre Tijerina ECHOCARDIO M/2D COMPLETEon 0 05-08-2022 ECHOCARDIO M/2D COMPLETE Patient: ARIANNE MCQUEEN Exam Date: 05/08/2022 : 1945 Gender:M Ordering : DR CATINA SALAZAR M.D. Admission #: [id number] Family : DR MAL BARNES D.O. Order #: [id number] CLICK HERE TO VIEW EXAM ECHOCARDIOGRAM REPORT PROCEDURE: CARDIO PULMONARY ECHOCARDIO M/2D COMP INDICATIONS: pericardial effusion, CABG x 2, hypertension, diabetes COMPARISON: None. DESCRIPTION: COMPLETE ECHOCARDIOGRAM Real-time transthoracic echocardiography with 2D, M-mode, spectral and color flow Doppler performed. QUALITY: Technically difficult due to patients condition. LEFT VENTRICLE: Normal chamber size. Moderate concentric left ventricular hypertrophy. LV EF: Normal left ventricular ejection fraction, (>55%). DIASTOLIC: Normal diastolic function. ATRIAL SEPTUM: LEFT ATRIUM: Normal chamber size. RIGHT ATRIUM: Mild dilatation. RIGHT VENTRICLE: Normal chamber size. Normal right ventricular systolic function. TRICUSPID VALVE: Normal mobility and thickness. No stenosis with trivial regurgitation. No evidence of pulmonary hypertension. RVSP is 31 mmHg MITRAL VALVE: Normal mobility and thickness. No evidence of mitral valve stenosis. There is no mitral annular calcification. No mitral regurgitation. AORTIC VALVE: Normal trileaflet appearance. Mildly calcified aortic valve. Normal leaflet mobility. No evidence of aortic valve stenosis. No aortic regurgitation. AORTIC ROOT: Normal diameter and appearance. PULMONIC VALVE: Not well visualized. No stenosis. No regurgitation. PERICARDIUM: Trivial pericardial effusion. IVC: Collapses with inspirations. PLEURA: CONCLUSION: 1. Moderate concentric left ventricular hypertrophy. Normal systolic function. LVEF is 60%. 2. Normal right ventricular systolic function. 3. No significant valvular dysfunction. 4. Normal right-sided pressures. 5. Trivial pericardial effusion. 6. Compared to the study of 10/23/2021, the pericardial effusion has nearly resolved. Adult Echocardiography Procedure Report Left Ventricle Left Atrium Mitral Valve Right Ventricle Aorta Aortic Valve Tricuspid Valve Pulmonic Valve Right Atrium Dictated by: Catina Salazar M.D. on 05/09/2022 at 19:44 Approved by: Catina Salazar M.D. on 05/09/2022 at 19:48 Normal [facility] XR LSPINE MIN 4 VIEWSon 04-24 XR LSPINE MIN 4 VIEWS EXAMINATION: XR LSPINE MIN 4 VIEWS HISTORY: Pain in right hip joint COMPARISON: No relevant comparison available. FINDINGS: BONES: Minimal grade 1 retrolisthesis of L2 on 3 and L3 on 4. No fracture. Moderate degenerative facet arthropathy L4-L5, L5-S1. DISC SPACES: Multilevel mild narrowing. Moderate narrowing L5-S1. PARASPINOUS: Negative. No paraspinous abnormality is seen. OTHER: Negative. IMPRESSION: 1. 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 No appreciable acute abnormality. Electronically authenticated by: NOREEN KELLY Date: 2022-05-08 10:47 Normal [facility] PROF CHEM 8 (BAS METB)on Anion gap [Moles/Vol] 6.8 mmol/L Normal [facility] Comment on above: Performed By: #### P OCGLUC #### [facility] [address] [address] [address] Deidre Tijerina Calcium [Mass/Vol] 8.8 mg/dL Normal 8.5-10.1 [facility] Comment on above: Performed By: #### P OCGLUC #### [facility] [address] [address] [address] Deidre Tijerina Chloride [Moles/Vol] 102 mmol/L Normal 98-107 [facility] Comment on above: Performed By: #### P OCGLUC #### [facility] [address] [address] [address] Deidre Tijerina CO2 [Moles/Vol] 28.1 mmol/L Normal 21.0-32.0 [facility] Comment on above: Performed By: #### P OCGLUC #### [facility] [address] [address] [address] Deidre Tijerina Creatinine [Mass/Vol] 1.84 mg/dL Critically high 0.70-1.30 [facility] Comment on above: Performed By: #### P OCGLUC #### [facility] [address] [address] [address] Deidre Tijerina EGFR-AF [place]I 43 mL/min/1.73m2 Critically low >=60 [facility] Comment on above: Performed By: #### P OCGLUC #### [facility] [address] [address] [address] Deidre Tijerina EGFR-NON AF [place]I 36 mL/min/1.73m2 Critically low >=60 [facility] Comment on above: Performed By: #### P OCGLUC #### [facility] [address] [address] [address] Deidre Tijerina Glucose [Mass/Vol] 112 mg/dL Critically high 74-106 [facility] Comment on above: Performed By: #### P OCGLUC #### [facility] [address] [address] [address] Deidre Tijerina Potassium [Moles/Vol] 4.9 mmol/L Normal 3.5-5.1 [facility] Comment on above: Performed By: #### P OCGLUC #### [facility] [address] [address] [address] Deidre Tijerina Sodium [Moles/Vol] 132 mmol/L Critically low 136-145 [facility] Comment on above: Performed By: #### P OCGLUC #### [facility] [address] [address] [address] Deidre Tijerina Urea nitrogen [Mass/Vol] 40.0 mg/dL Critically high 7.0-18.0 [facility] Comment on above: Performed By: #### P OCGLUC #### [facility] [address] [address] [address] Deidre Tijerina Urea nitrogen/Creatinine [Mass ratio] 21.7 mg/mg Normal [facility] Comment on above: Performed By: #### P OCGLUC #### [facility] [address] [address] [address] Deidre Tijerina PROF CHEM 8 (BAS METB)on 08- 22-2022 Anion gap [Moles/Vol] 8.9 mmol/L Normal [facility] Comment on above: Performed By: #### B MP #### [facility] [address] [place] [address] Dr. Deidre Tijerina Calcium [Mass/Vol] 8.4 mg/dL Critically low 8.5-10.1 Th e [facility] Comment on above: Performed By: #### B MP #### [facility] [address] [address] [address] Deidre Tijerina Chloride [Moles/Vol] 102 mmol/L Normal 98-107 [facility] Comment on above: Performed By: #### B MP #### [facility] [address] [place] [address] Dr. Deidre Tijerina CO2 [Moles/Vol] 25.9 mmol/L Normal 21.0-32.0 [facility] Comment on above: Performed By: #### B MP #### [facility] [address] [place] [address] Dr. Deidre Tijerina Creatinine [Mass/Vol] 1.20 mg/dL Normal 0.70-1.30 [facility] Comment on above: Performed By: #### B MP #### [facility] [address] [place] [address] Dr. Deidre Tijerina EGFR-AF KU[place]I >60 Normal >=60 [facility] Comment on above: Performed By: #### B MP #### [facility] [address] [place] [address] Dr. Deidre Tijerina EGFR-NON AF [place]I 59 mL/min/1.73m2 Critically low >=60 [facility] Comment on above: Performed By: #### B MP #### [facility] [address] [address] [address] Deidre Tijerina Glucose [Mass/Vol] 117 mg/dL Critically high 74-106 [facility] Comment on above: Performed By: #### B MP #### [facility] [address] [place] [address] Dr. Deidre Tijerina Potassium [Moles/Vol] 4.8 mmol/L Normal 3.5-5.1 [facility] Comment on above: Performed By: #### B MP #### [facility] [address], [place] [address] Dr. Deidre Tijerina Sodium [Moles/Vol] 132 mmol/L Critically low 136-145 Th [facility] Comment on above: Performed By: #### B MP #### [facility] [address], [place] [address] Dr. Deidre Tijerina Urea nitrogen [Mass/Vol] 25.0 mg/dL Critically high 7.0-18.0 [facility] Comment on above: Performed By: #### B MP #### [facility] [address], [place] [address] Dr. Deidre Tijerina Urea nitrogen/Creatinine [Mass ratio] 20.8 mg/mg Normal [facility] Comment on above: Performed By: #### B MP #### [facility] [address], [place] [address] Dr. Deidre Tijerina US CHESTon 08-05-2021 US CHEST Normal [facility] Comment on above: Order Comment: serom a in the chest needs a drain placed BASIC METABOLIC PANELon 05-24 Calcium [Mass/Vol] 8.4 mg/dL Low 8.6-10.3 [facility] Comment on above: Order Comment: this is not a nurse draw. lab draw pleaseNo: Do not add to previous draw Performed By: #### 0 0071 ####[facility] [place] [address], [facility] Chloride [Moles/Vol] 102 mmol/L Normal 98-107 [facility] Comment on above: Order Comment: this is not a nurse draw. lab draw pleaseNo: Do not add to previous draw Performed By: #### 0 0071 ####[facility] [place] [address], [facility] CO2 [Moles/Vol] 25 mmol/L Normal 21-31 [facility] Comment on above: Order Comment: this is not a nurse draw. lab draw pleaseNo: Do not add to previous draw Performed By: #### 0 0071 ####[facility] [facility] [place] [address], [facility] Creatinine [Mass/Vol] 2.56 mg/dL High 0.70-1.30 [facility] Comment on above: Order Comment: this is not a nurse draw. lab draw pleaseNo: Do not add to previous draw Performed By: #### 0 0071 ####[facility] [place] [address], [facility] eGFR- 30 ml/min/1.73sq m Abnormal >60 [facility] Comment on above: Order Comment: this is not a nurse draw. lab draw pleaseNo: Do not add to previous draw Result Comment: Calc ulation may not be valid for patients over 70 years Performed By: #### 0 0071 ####[place] [id number] [place] [address], [facility] eGFR- non- 24 ml/min/1.73sq m Abnormal >60 [facility] Comment on above: Order Comment: this is not a nurse draw. lab draw pleaseNo: Do not add to previous draw Result Comment: Calc ulation may not be valid for patients over 70 years Performed By: #### 0 0071 ####[place] [id number] [place] [address], [facility] Glucose [Mass/Vol] 182 mg/dL High 70-100 [facility] Comment on above: Order Comment: this is not a nurse draw. lab draw pleaseNo: Do not add to previous draw Performed By: #### 0 0071 ####[place] [address] [place] [address], [facility] Potassium [Moles/Vol] 4.5 mmol/L Normal 3.5-5.1 [facility] Comment on above: Order Comment: this is not a nurse draw. lab draw pleaseNo: Do not add to previous draw Performed By: #### 0 0071 ####[facility] [facility] [place] [address], [facility] Sodium [Moles/Vol] 133 mmol/L Low 136-145 [facility] Comment on above: Order Comment: this is not a nurse draw. lab draw pleaseNo: Do not add to previous draw Performed By: #### 0 0071 ####[facility] [facility] [place] [address], [facility] Urea nitrogen [Mass/Vol] 28 mg/dL High 7-25 [facility] Comment on above: Order Comment: this is not a nurse draw. lab draw pleaseNo: Do not add to previous draw Performed By: #### 0 0071 ####[facility] [facility] [place] [address], [facility] POC GLUCOSE LABon 06-02-2021 Glucose [Mass/Vol] 246 mg/dL High 70-100 [facility] Comment on above: Performed By: #### 8 5499 ####[facility] [facility] [place] [address], [facility] Glucose [Mass/Vol] 109 mg/dL High 70-100 [facility] Comment on above: Performed By: #### 8 5499 ####[facility] [facility] [place] [address], [facility] POC SARS COV2 ANTIGEN NEGATI VEon 06-02-2021 POC SARS COV2 ANTIGEN NEG Negative Normal NEGATIVE [facility] Comment on above: Result Comment: Nega tive results from patients with symptom onset beyond seven days,should be treated presumptive and confirmation with a molecular assay,if necessary, for patient management, may be performed. Negative resultsdo not rule out SARS-CoV-2 infection and should not be used as the solebasis for treatment or patient management decisions, including infectioncontrol decisions. Negative results should be considered in the contextof a patient?s recent exposures, history and the presence of clinicalsigns and symptoms consistent with COVID-19.The BinaxNOW COVID-19 Ag Card is a lateral flow immunoassay intended forthe qualitative detection of nucleocapsid protein antigen egguCRDO-KuM-3 in direct nasal swabs from individuals within the first sevendays of symptom onset. Testing is limited to laboratories certifiedunder the Clinical Laboratory Improvement Amendments of 1988 (CLIA), [place] ???263a, that meet the requirements to perform moderate, high orwaived complexity tests. This test is authorized for use at the Point ofCare (POC), i.e., in patient care settings operating under a CLIACertificate of Waiver, Certificate of Compliance, or Certificate ofAccreditation. Performed By: #### 3 1976 ####[place] [id number] POC SARS COV2 ANTIGEN NEG Negative Normal NEGATIVE [facility] Comment on above: Result Comment: Nega tive results from patients with symptom onset beyond seven days,should be treated presumptive and confirmation with a molecular assay,if necessary, for patient management, may be performed. Negative resultsdo not rule out SARS-CoV-2 infection and should not be used as the solebasis for treatment or patient management decisions, including infectioncontrol decisions. Negative results should be considered in the contextof a patient?s recent exposures, history and the presence of clinicalsigns and symptoms consistent with COVID-19.The BinMTPVNOW COVID-19 Ag Card is a lateral flow immunoassay intended forthe qualitative detection of nucleocapsid protein antigen hheaVPRQ-IwY-2 in direct nasal swabs from individuals within the first sevendays of symptom onset. Testing is limited to laboratories certifiedunder the Clinical Laboratory Improvement Amendments of 1988 (CLIA), [place]. ???263a, that meet the requirements to perform moderate, high orwaived complexity tests. This test is authorized for use at the Point ofCare (POC), i.e., in patient care settings operating under a CLIACertificate of Waiver, Certificate of Compliance, or Certificate ofAccreditation. Performed By: #### 3 1976 ####[facility] [facility] [place] [address], [facility] POC GLUCOSE LABon 06-01-2021 Glucose [Mass/Vol] 142 mg/dL High 70-100 [facility] Comment on above: Performed By: #### 8 5499 ####[facility] [facility] [place] [address], [facility] Glucose [Mass/Vol] 132 mg/dL High 70-100 [facility] Comment on above: Performed By: #### 8 5499 ####[facility] [facility] [place] [address], [facility] Glucose [Mass/Vol] 167 mg/dL High 70-100 [facility] Comment on above: Performed By: #### 8 5499 ####[facility] [facility].[address] Glucose [Mass/Vol] 113 mg/dL High 70-100 [facility] Comment on above: Performed By: #### 8 5499 ####[facility] APTTon 05-31-2021 aPTT Coag (Bld) [Time] 29.3 s Normal 25.0-35.0 [facility] Comment on above: Result Comment: ALL RESULTS MUST BE INTERPRETED WITH RESPECT TO BLOOD DRAWING ARTIFACTOR DILUTION ERROR OF ANTICOAGULANT AT THE TIME OF SAMPLING.THE APTT SHOULD NOT BE USED TO MONITOR UNFRACTIONATED HEPARIN THERAPY, THIS LABORATORY NO LONGER HAS AN ESTABLISHED THERAPEUTIC RANGE BASEDON THE APTT. IT IS RECOMMENDED THAT THE UFH - HEPARIN ASSAY (ANTI-XAACTIVITY) BE USED FOR THIS PURPOSE. Performed By: #### 5 7307, 08454 ####[facility] [facility].[address] CBC W/DIFFon 05-31-2021 ABS IMM GRANS 0.1 10*3/uL Normal 0.0-0.2 The [facility] Comment on above: Order Comment: No: D o not add to previous draw Performed By: #### 5 0103 ####[facility] [place] [address], [facility] ABS NEUTROPHILS 4.9 10*3/uL Normal 1.6-7.6 The [facility] Comment on above: Order Comment: No: D o not add to previous draw Performed By: #### 5 0103 ####[facility] [facility] [place] [address], [facility] Basophils (Bld) [#/Vol] 0.1 10*3/uL Normal 0.0-0.2 [facility] Comment on above: Order Comment: No: D o not add to previous draw Performed By: #### 5 0103 ####[facility] [facility] [place] [address], [facility] Basophils/100 WBC (Bld) 0.6 % Normal 0.0-1.0 [facility] Comment on above: Order Comment: No: D o not add to previous draw Performed By: #### 5 0103 ####[facility] [place] [address], [facility] Eosinophils (Bld) [#/Vol] 0.4 10*3/uL Normal 0.0-0.5 [facility] Comment on above: Order Comment: No: D o not add to previous draw Performed By: #### 5 3 ####[facility] [facility] [place] [address], [facility] Eosinophils/100 WBC (Bld) 5.3 % Normal 0.0-6.0 [facility] Comment on above: Order Comment: No: D o not add to previous draw Performed By: #### 5 0103 ####[facility] [place] [address], [facility] Erythrocyte distribution width (RBC) [Ratio] 15.7 % High 11.5-15.0 [facility] Comment on above: Order Comment: No: D o not add to previous draw Performed By: #### 5 0103 ####[facility] [facility].[address] Hematocrit (Bld) [Volume fraction] 27.6 % Low 39.0-50.0 [facility] Comment on above: Order Comment: No: D o not add to previous draw Performed By: #### 3 ####[facility] [facility] [place] [address], [facility] Hemoglobin (Bld) [Mass/Vol] 8.5 g/dL Low 13.0-17.0 [facility] Comment on above: Order Comment: No: D o not add to previous draw Performed By: #### 102 ####[facility] IMMATURE GRANS 1.1 % High 0.0-1.0 The [facility] Comment on above: Order Comment: No: D o not add to previous draw Performed By: #### 102 ####[facility] Lymphocytes (Bld) [#/Vol] 1.7 10*3/uL Normal 1.2-4.0 [facility] Comment on above: Order Comment: No: D o not add to previous draw Performed By: #### 102 ####[facility] Lymphocytes/100 WBC (Bld) 21.4 % Normal 20.0-45.0 [facility] Comment on above: Order Comment: No: D o not add to previous draw Performed By: #### 5 3 ####[facility] [place] [address], [facility] MCH (RBC) [Entitic mass] 29.2 pg Normal 27.0-33.0 [facility] Comment on above: Order Comment: No: D o not add to previous draw Performed By: #### 5 3 ####[facility] MCHC (RBC) [Mass/Vol] 30.8 g/dL Low 32.0-35.0 [facility] Comment on above: Order Comment: No: D o not add to previous draw Performed By: #### 5 0103 ####[facility] MCV (RBC) [Entitic vol] 94.8 fL Normal 82.0-98.0 [facility] Comment on above: Order Comment: No: D o not add to previous draw Performed By: #### 5 0103 ####[facility] Monocytes (Bld) [#/Vol] 0.8 10*3/uL Normal 0.1-1.0 [facility] Comment on above: Order Comment: No: D o not add to previous draw Performed By: #### 5 0103 ####[facility] MONOS 9.7 % Normal 5.0-12.0 [facility] Comment on above: Order Comment: No: D o not add to previous draw Performed By: #### 5 3 ####[facility] Neutrophils/100 WBC (Bld) 61.9 % Normal 40.0-72.0 [facility] Comment on above: Order Comment: No: D o not add to previous draw Performed By: #### 5 0103 ####[facility] [place] [address], [facility] Nucleated RBC/100 WBC (Bld) [Ratio] 0 % Normal 0-0 [facility] Comment on above: Order Comment: No: D o not add to previous draw Performed By: #### 5 0103 ####[facility] [facility].[address] PLAT CNT 351 10*3/uL Normal 150-400 [facility] Comment on above: Order Comment: No: D o not add to previous draw Performed By: #### 5 0103 ####[facility] [facility] [place] [address], [facility] RBC (Bld) [#/Vol] 2.91 10*6/uL Low 4.20-5.70 The [facility] Comment on above: Order Comment: No: D o not add to previous draw Performed By: #### 5 0103 ####[facility] [facility] [place] [address], [facility] WBC (Bld) [#/Vol] 7.96 10*3/uL Normal 4.00-10.60 The [facility] Comment on above: Order Comment: No: D o not add to previous draw Performed By: #### 5 0103 ####[facility] [facility].[address] COMP METABOLIC PANELon 05-31 Albumin [Mass/Vol] 2.9 g/dL Low 3.5-5.7 [facility] Comment on above: Order Comment: No: D o not add to previous drawNurse draw Performed By: #### 1 0, 21052 ####[facility] [facility].[address] ALKALINE PHOSPH 70 IU/L Normal 34-104 [facility] Comment on above: Order Comment: No: D o not add to previous drawNurse draw Performed By: #### 1 0, 01236 ####[facility] [facility].[address] ALT [Catalytic activity/Vol] 9 U/L Normal 7-52 [facility] Comment on above: Order Comment: No: D o not add to previous drawNurse draw Performed By: #### 1 0, 70805 ####[facility] [id number], [place] AST [Catalytic activity/Vol] 11 U/L Low 13-39 [facility] Comment on above: Order Comment: No: D o not add to previous drawNurse draw Performed By: #### 1 0, 69879 ####[facility] [place] [address], [place] Bilirubin [Mass/Vol] 0.6 mg/dL Normal 0.3-1.0 [facility] Comment on above: Order Comment: No: D o not add to previous drawNurse draw Performed By: #### 1 0, 32509 ####[facility] [place] [address], [place] Calcium [Mass/Vol] 8.4 mg/dL Low 8.6-10.3 [facility] Comment on above: Order Comment: No: D o not add to previous drawNurse draw Performed By: #### 1 0, 89041 ####[facility] [place] [address], [place] Chloride [Moles/Vol] 102 mmol/L Normal 98-107 [facility] Comment on above: Order Comment: No: D o not add to previous drawNurse draw Performed By: #### 1 0, 28636 ####[facility] [place] [address], [place] CO2 [Moles/Vol] 27 mmol/L Normal 21-31 [facility] Comment on above: Order Comment: No: D o not add to previous drawNurse draw Performed By: #### 1 0, 02516 ####[facility] [place] [address], [place] Creatinine [Mass/Vol] 2.90 mg/dL High 0.70-1.30 [facility] Comment on above: Order Comment: No: D o not add to previous drawNurse draw Performed By: #### 1 0, 79865 ####[facility] [place] [address], [facility] eGFR- 26 ml/min/1.73sq m Abnormal >60 [facility] Comment on above: Order Comment: No: D o not add to previous drawNurse draw Result Comment: Calc ulation may not be valid for patients over 70 years Performed By: #### 1 0, 21640 ####[facility] [place] [address], [facility] eGFR- non- 21 ml/min/1.73sq m Abnormal >60 [facility] Comment on above: Order Comment: No: D o not add to previous drawNurse draw Result Comment: Calc ulation may not be valid for patients over 70 years Performed By: #### 1 0, 74968 ####[facility] [place] [address], [place] Glucose [Mass/Vol] 97 mg/dL Normal 70-100 [facility] Comment on above: Order Comment: No: D o not add to previous drawNurse draw Performed By: #### 1 0, 76383 ####[facility] [facility] [place] [address], [place] Potassium [Moles/Vol] 4.4 mmol/L Normal 3.5-5.1 [facility] Comment on above: Order Comment: No: D o not add to previous drawNurse draw Performed By: #### 1 0, 64753 ####[facility] [place] [address], [place] Protein [Mass/Vol] 6.5 g/dL Normal 6.0-8.3 [facility] Comment on above: Order Comment: No: D o not add to previous drawNurse draw Performed By: #### 1 0, 26126 ####[facility] [place] [address], [place] Sodium [Moles/Vol] 134 mmol/L Low 136-145 [facility] Comment on above: Order Comment: No: D o not add to previous drawNurse draw Performed By: #### 1 0070, 81319 ####[facility] [place] [address], [place] Urea nitrogen [Mass/Vol] 31 mg/dL High 7-25 [facility] Comment on above: Order Comment: No: D o not add to previous drawNurse draw Performed By: #### 1 0, 06328 ####[facility] [place] [address], [place] MAGNESIUM BLOODon 05-31-2021 Magnesium [Mass/Vol] 1.8 mg/dL Low 1.9-2.7 [facility] Comment on above: Performed By: #### 1 69, 40466 ####[facility] [place] [address], [place] POC GLUCOSE LABon 05-31-2021 Glucose [Mass/Vol] 120 mg/dL High 70-100 [facility] Comment on above: Performed By: #### 8 5499 ####[facility] [place] [address], [place] Glucose [Mass/Vol] 124 mg/dL High 70-100 [facility] Comment on above: Performed By: #### 8 5499 ####[facility] [place] [address], [place] Glucose [Mass/Vol] 136 mg/dL High 70-100 [facility] Comment on above: Performed By: #### 8 5499 ####[facility] [place] [address], [place] Glucose [Mass/Vol] 115 mg/dL High 70-100 [facility] Comment on above: Performed By: #### 8 5499 ####[facility] [facility] [place] [address], [facility] PORTABLE CHEST 1 VIEWon PORTABLE CHEST 1 VIEW Normal [facility] Comment on above: Order Comment: evalu ate for CHF PROTHROMBIN TIMEon INR Coag (PPP) [Relative time] 1.13 {INR} Normal 0.91-1.16 [facility] Comment on above: Result Comment: ACCC P RECOMMENDED INR FOR WARFARIN THERAPY CONDITION INRPROPHYLAXIS OF VENOUS THROMBOSIS 2-3(HIGH-RISK SURGERY)TREATMENT OF VENOUS THROMBOSIS 2-3TREATMENT OF PULMONARY EMBOLISM 2-3PREVENTION OF SYSTEMIC EMBOLISM: 2-3 ACUTE MYOCARDIAL INFARCTION TISSUE HEART VALVES VALVULAR HEART DISEASE ATRIAL FIBRILLATION RECURRENT SYSTEMIC EMBOLISMMECHANICAL HEART VALVE 2.5-3.5 FROM: ORAL ANTICOAGULANTS. MECHANISM OF ACTION, CLINICALEFFECTIVENESS, AND OPTIMAL THERAPEUTIC RANGE. [id number]. Performed By: #### 5 7307, 48493 ####[facility] [facility] [place] [address], [facility] PT Coag (PPP) [Time] 14.5 s Normal 12.3-14.8 [facility] Comment on above: Result Comment: ALL RESULTS MUST BE INTERPRETED WITH RESPECT TO BLOOD DRAWING ARTIFACTOR DILUTION ERROR OF ANTICOAGULANT AT THE TIME OF SAMPLING. Performed By: #### 5 7307, 67460 ####[facility] [facility] [place] [address], [facility] ALBUMIN BLOODon 05-30-2021 Albumin [Mass/Vol] 3.0 g/dL Low 3.5-5.7 [facility] Comment on above: Performed By: #### 1 69, , 55263 ####[facility] [facility] [place] [address], [facility] BASIC METABOLIC PANELon Calcium [Mass/Vol] 8.6 mg/dL Normal 8.6-10.3 [facility] Comment on above: Order Comment: No: D o not add to previous draw Performed By: #### 1 69, , 69836 ####[facility] [facility] [place] [address], [facility] Chloride [Moles/Vol] 102 mmol/L Normal 98-107 [facility] Comment on above: Order Comment: No: D o not add to previous draw Performed By: #### 1 69, , ####[facility] [facility] [place] [address], [facility] CO2 [Moles/Vol] 25 mmol/L Normal 21-31 [facility] Comment on above: Order Comment: No: D o not add to previous draw Performed By: #### 1 69, , ####[facility] [facility] [place] [address], [facility] Creatinine [Mass/Vol] 2.49 mg/dL High 0.70-1.30 [facility] Comment on above: Order Comment: No: D o not add to previous draw Performed By: #### 1 69, , 85313 ####[facility] [place] [address], [facility] eGFR- 31 ml/min/1.73sq m Abnormal >60 [facility] Comment on above: Order Comment: No: D o not add to previous draw Result Comment: Calc ulation may not be valid for patients over 70 years Performed By: #### 1 0, , 22101 ####[facility] [place] [address], [facility] eGFR- non- 25 ml/min/1.73sq m Abnormal >60 [facility] Comment on above: Order Comment: No: D o not add to previous draw Result Comment: Calc ulation may not be valid for patients over 70 years Performed By: #### 1 0, , 71731 ####[facility] [id number], [facility] Glucose [Mass/Vol] 100 mg/dL Normal 70-100 [facility] Comment on above: Order Comment: No: D o not add to previous draw Performed By: #### 1 0, , 86894 ####[facility] [id number], [facility] Potassium [Moles/Vol] 4.5 mmol/L Normal 3.5-5.1 [facility] Comment on above: Order Comment: No: D o not add to previous draw Performed By: #### 1 69, , ####[facility] [place] [address], [place] Sodium [Moles/Vol] 134 mmol/L Low 136-145 [facility] Comment on above: Order Comment: No: D o not add to previous draw Performed By: #### 1 69, , ####[facility] [id number], [place] Urea nitrogen [Mass/Vol] 32 mg/dL High 7-25 [facility] Comment on above: Order Comment: No: D o not add to previous draw Performed By: #### 1 69, , ####[facility] CBC COMPLETE BLOOD COUNTon 1 Erythrocyte distribution width (RBC) [Ratio] 15.7 % High 11.5-15.0 [facility] Comment on above: Order Comment: No: D o not add to previous draw Performed By: #### 5 0608 ####[facility] Hematocrit (Bld) [Volume fraction] 26.5 % Low 39.0-50.0 [facility] Comment on above: Order Comment: No: D o not add to previous draw Performed By: #### 5 0608 ####[address] Hemoglobin (Bld) [Mass/Vol] 8.4 g/dL Low 13.0-17.0 [facility] Comment on above: Order Comment: No: D o not add to previous draw Performed By: #### 5 0608 ####[facility] MCH (RBC) [Entitic mass] 28.9 pg Normal 27.0-33.0 [facility] Comment on above: Order Comment: No: D o not add to previous draw Performed By: #### 5 0608 ####[facility] [place] [address] MCHC (RBC) [Mass/Vol] 31.7 g/dL Low 32.0-35.0 [facility] Comment on above: Order Comment: No: D o not add to previous draw Performed By: #### 5 0608 ####[facility] [place] [address] MCV (RBC) [Entitic vol] 91.1 fL Normal 82.0-98.0 [facility] Comment on above: Order Comment: No: D o not add to previous draw Performed By: #### 5 0608 ####[facility] [place] [address], [facility] Nucleated RBC/100 WBC (Bld) [Ratio] 0 % Normal 0-0 [facility] Comment on above: Order Comment: No: D o not add to previous draw Performed By: #### 5 0608 ####[facility] [facility] [place] [address], [facility] PLAT CNT 338 10*3/uL Normal 150-400 [facility] Comment on above: Order Comment: No: D o not add to previous draw Performed By: #### 5 0608 ####[facility] [facility] [place] [address], [facility] RBC (Bld) [#/Vol] 2.91 10*6/uL Low 4.20-5.70 [facility] Comment on above: Order Comment: No: D o not add to previous draw Performed By: #### 5 0608 ####[facility] [facility] [place] [address], [facility] WBC (Bld) [#/Vol] 7.23 10*3/uL Normal 4.00-10.60 [facility] Comment on above: Order Comment: No: D o not add to previous draw Performed By: #### 5 0608 ####[facility] [facility] [place] [address], [facility] CREATININE URINE RANDOMon Creatinine (U) [Mass/Vol] 39.0 mg/dL Normal [facility] Comment on above: Order Comment: No: D o not add to previous draw Result Comment: Ther e are no established reference values for random urine specimens Performed By: #### 2 5706, 61566 ####[facility] [facility] [place] [address], [facility] MAGNESIUM BLOODon 05-30-2021 Magnesium [Mass/Vol] 1.9 mg/dL Normal 1.9-2.7 [facility] Comment on above: Order Comment: No: D o not add to previous draw Performed By: #### 1 0070, 61956, 68908 ####[facility] [place] [address], [facility] POC GLUCOSE LABon 05-30-2021 Glucose [Mass/Vol] 155 mg/dL High 70-100 [facility] Comment on above: Performed By: #### 8 5499 ####[facility] [place] [address], [place] Glucose [Mass/Vol] 129 mg/dL High 70-100 [facility] Comment on above: Performed By: #### 8 5499 ####[facility] [place] [address], [place] Glucose [Mass/Vol] 147 mg/dL High 70-100 [facility] Comment on above: Performed By: #### 8 5499 ####[facility] [facility] [place] [address], [facility] PORTABLE CHEST 1 VIEWon 10-0 PORTABLE CHEST 1 VIEW Normal [facility] Comment on above: Order Comment: Evalu ate for Atelectasis T PROT UR Isi 05-30-2021 U TOTAL PROTEIN 88.8 mg/dL Normal [facility] Comment on above: Order Comment: No: D o not add to previous draw Result Comment: Ther e are no established reference values for random urine specimens Performed By: #### 2 5706, 73582 ####[facility] [facility] [place] [address], [facility] URINE TRINH STAIN/EOSon EOSINOPHIL SMEAR NONE SEEN Normal NSN [facility] Comment on above: Order Comment: No: D o not add to previous draw [place] Normal [facility] Comment on above: Order Comment: No: D o not add to previous draw Result Comment: Test Performed by [employer] [address] [id number] - Released 05/30/2021 20:40 US RENALon 05-30-2021 US RENAL Normal [facility] Comment on above: Order Comment: Other , FREDA BASIC METABOLIC PANELon 10-0 Calcium [Mass/Vol] 8.4 mg/dL Low 8.6-10.3 [facility] Comment on above: Order Comment: No: D o not add to previous draw Performed By: #### 4 1000, 78289, 27117 ####[facility] [place] [address], [facility] Chloride [Moles/Vol] 102 mmol/L Normal 98-107 [facility] Comment on above: Order Comment: No: D o not add to previous draw Performed By: #### 4 1000, 44860, 62489 ####[facility] [place] [address], [facility] CO2 [Moles/Vol] 25 mmol/L Normal 21-31 [facility] Comment on above: Order Comment: No: D o not add to previous draw Performed By: #### 4 1000, 14552, 15729 ####[facility] [place] [address], [facility] Creatinine [Mass/Vol] 2.12 mg/dL High 0.70-1.30 [facility] Comment on above: Order Comment: No: D o not add to previous draw Performed By: #### 4 1000, 86044, 25411 ####[facility] [place] [address], [place] eGFR- 37 ml/min/1.73sq m Abnormal >60 [facility] Comment on above: Order Comment: No: D o not add to previous draw Result Comment: Calc ulation may not be valid for patients over 70 years Performed By: #### 4 1000, 08410, 98871 ####[facility] eGFR- non- 30 ml/min/1.73sq m Abnormal >60 [facility] Comment on above: Order Comment: No: D o not add to previous draw Result Comment: Calc ulation may not be valid for patients over 70 years Performed By: #### 4 1000, 18473, 10354 ####[facility] [facility] [place] [address], [facility] Glucose [Mass/Vol] 103 mg/dL High 70-100 [facility] Comment on above: Order Comment: No: D o not add to previous draw Performed By: #### 4 1000, 91779, 40082 ####[address] [facility] [place] [address], [facility] Potassium [Moles/Vol] 4.6 mmol/L Normal 3.5-5.1 [facility] Comment on above: Order Comment: No: D o not add to previous draw Performed By: #### 4 1000, 91681, 36743 ####[address] [place] [address] [facility] [place] [address], [facility] Sodium [Moles/Vol] 133 mmol/L Low 136-145 [facility] Comment on above: Order Comment: No: D o not add to previous draw Performed By: #### 4 1000, 94195, 43915 ####[address] [place] [address] [facility] [place] [address], [facility] Urea nitrogen [Mass/Vol] 33 mg/dL High 7-25 [facility] Comment on above: Order Comment: No: D o not add to previous draw Performed By: #### 4 1000, 91970, 75293 ####[address] [place] [address] [facility] [place] [address], [facility] CBC COMPLETE BLOOD COUNTon Erythrocyte distribution width (RBC) [Ratio] 15.7 % High 11.5-15.0 [facility] Comment on above: Order Comment: No: D o not add to previous draw Performed By: #### 5 0608 ####[facility] Hematocrit (Bld) [Volume fraction] 26.4 % Low 39.0-50.0 [facility] Comment on above: Order Comment: No: D o not add to previous draw Performed By: #### 5 0608 ####[facility] Hemoglobin (Bld) [Mass/Vol] 8.4 g/dL Low 13.0-17.0 [facility] Comment on above: Order Comment: No: D o not add to previous draw Performed By: #### 5 0608 ####[address] MCH (RBC) [Entitic mass] 29.0 pg Normal 27.0-33.0 [facility] Comment on above: Order Comment: No: D o not add to previous draw Performed By: #### 5 0608 ####[place] [address] MCHC (RBC) [Mass/Vol] 31.8 g/dL Low 32.0-35.0 [facility] Comment on above: Order Comment: No: D o not add to previous draw Performed By: #### 5 0608 ####[facility] [place] [address] MCV (RBC) [Entitic vol] 91.0 fL Normal 82.0-98.0 [facility] Comment on above: Order Comment: No: D o not add to previous draw Performed By: #### 5 0608 ####[facility] [place] [address] Nucleated RBC/100 WBC (Bld) [Ratio] 0 % Normal 0-0 [facility] Comment on above: Order Comment: No: D o not add to previous draw Performed By: #### 5 0608 ####[facility] [facility] [place] [address], [facility] PLAT CNT 346 10*3/uL Normal 150-400 [facility] Comment on above: Order Comment: No: D o not add to previous draw Performed By: #### 5 0608 ####[facility] [facility] [place] [address], [facility] RBC (Bld) [#/Vol] 2.90 10*6/uL Low 4.20-5.70 [facility] Comment on above: Order Comment: No: D o not add to previous draw Performed By: #### 5 0608 ####[address] [address] [facility] [place] [address], [facility] WBC (Bld) [#/Vol] 7.17 10*3/uL Normal 4.00-10.60 [facility] Comment on above: Order Comment: No: D o not add to previous draw Performed By: #### 5 0608 ####[facility] [facility].[address] MAGNESIUM BLOODon 05-29-2021 Magnesium [Mass/Vol] 1.9 mg/dL Normal 1.9-2.7 [facility] Comment on above: Order Comment: No: D o not add to previous draw Performed By: #### 4 999, 24770, 46008 ####[facility] [facility] [place] [address], [facility] PHOSPHORUS BLOODon Phosphate [Mass/Vol] 4.4 mg/dL Normal 2.5-5.0 [facility] Comment on above: Order Comment: No: D o not add to previous draw Performed By: #### 4 999, 90559, 26232 ####[facility] [place] [address], [place] POC GLUCOSE LABon 05-29-2021 Glucose [Mass/Vol] 183 mg/dL High 70-100 [facility] Comment on above: Performed By: #### 8 5499 ####[facility] [place] [address], [place] Glucose [Mass/Vol] 124 mg/dL High 70-100 [facility] Comment on above: Performed By: #### 8 5499 ####[facility] [place] [address], [place] Glucose [Mass/Vol] 187 mg/dL High 70-100 [facility] Comment on above: Performed By: #### 8 5499 ####[facility] [place] [address], [place] Glucose [Mass/Vol] 189 mg/dL High 70-100 [facility] Comment on above: Performed By: #### 8 5499 ####[facility] [place] [address], [place] PORTABLE CHEST 1 VIEWon PORTABLE CHEST 1 VIEW Normal [facility] Comment on above: Order Comment: evalu ate for Atelectasis BASIC METABOLIC PANELon Calcium [Mass/Vol] 8.3 mg/dL Low 8.6-10.3 [facility] Comment on above: Order Comment: No: D o not add to previous draw Performed By: #### 2 5508, 86347, 72858, 27018 ####[facility] [place] [address], [place] Chloride [Moles/Vol] 99 mmol/L Normal 98-107 [facility] Comment on above: Order Comment: No: D o not add to previous draw Performed By: #### 2 5508, 84484, 18518, 83324 ####[facility] [place] [address], [facility] CO2 [Moles/Vol] 26 mmol/L Normal 21-31 [facility] Comment on above: Order Comment: No: D o not add to previous draw Performed By: #### 2 5508, 27022, 75394, 31743 ####[facility] [place] [address], [facility] Creatinine [Mass/Vol] 2.18 mg/dL High 0.70-1.30 [facility] Comment on above: Order Comment: No: D o not add to previous draw Performed By: #### 2 5508, 04179, 34458, 47501 ####[facility] [place] [address], [facility] eGFR- 36 ml/min/1.73sq m Abnormal >60 [facility] Comment on above: Order Comment: No: D o not add to previous draw Result Comment: Calc ulation may not be valid for patients over 70 years Performed By: #### 2 5508, 94396, 53561, 51439 ####[facility] [place] [address], [facility] eGFR- non- 29 ml/min/1.73sq m Abnormal >60 [facility] Comment on above: Order Comment: No: D o not add to previous draw Result Comment: Calc ulation may not be valid for patients over 70 years Performed By: #### 2 5508, 56122, 39214, 19207 ####[facility] [place] [address], [place] Glucose [Mass/Vol] 100 mg/dL Normal 70-100 [facility] Comment on above: Order Comment: No: D o not add to previous draw Performed By: #### 2 5508, 17799, 60714, 47525 ####[facility] [place] [address], [place] Potassium [Moles/Vol] 5.3 mmol/L High 3.5-5.1 [facility] Comment on above: Order Comment: No: D o not add to previous draw Performed By: #### 2 5508, 24509, 90402, 06605 ####[facility]3000 [facility].[address] Sodium [Moles/Vol] 131 mmol/L Low 136-145 [facility] Comment on above: Order Comment: No: D o not add to previous draw Performed By: #### 2 5508, 92429, 31759, 01122 ####[facility] [facility].[address] Urea nitrogen [Mass/Vol] 33 mg/dL High 7-25 [facility] Comment on above: Order Comment: No: D o not add to previous draw Performed By: #### 2 5508, 25418, 31186, 92790 ####[facility] [facility] [place] [address], [facility] CBC W/DIFFon 05-28-2021 ABS IMM GRANS 0.2 10*3/uL Normal 0.0-0.2 [facility] Comment on above: Performed By: #### 5 0103 ####[facility] [facility].[address] ABS NEUTROPHILS 5.6 10*3/uL Normal 1.6-7.6 [facility] Comment on above: Performed By: #### 5 0103 ####[facility] [facility] [place] [address], [facility] Basophils (Bld) [#/Vol] 0.0 10*3/uL Normal 0.0-0.2 [facility] Comment on above: Performed By: #### 5 0103 ####[facility] [facility].[address] Basophils/100 WBC (Bld) 0.5 % Normal 0.0-1.0 [facility] Comment on above: Performed By: #### 5 0103 ####[facility] [facility] [place] [address], [facility] Eosinophils (Bld) [#/Vol] 0.4 10*3/uL Normal 0.0-0.5 [facility] Comment on above: Performed By: #### 5 0103 ####[facility] [facility].[address] Eosinophils/100 WBC (Bld) 4.5 % Normal 0.0-6.0 [facility] Comment on above: Performed By: #### 5 0103 ####[facility] [facility].[address] Erythrocyte distribution width (RBC) [Ratio] 15.6 % High 11.5-15.0 [facility] Comment on above: Performed By: #### 5 0103 ####[facility] [facility].[address] Hematocrit (Bld) [Volume fraction] 27.7 % Low 39.0-50.0 [facility] Comment on above: Performed By: #### 5 0103 ####[facility] [facility].[address] Hemoglobin (Bld) [Mass/Vol] 8.6 g/dL Low 13.0-17.0 [facility] Comment on above: Performed By: #### 5 3 ####[facility] [facility].[address] IMMATURE GRANS 1.8 % High 0.0-1.0 [facility] Comment on above: Performed By: #### 5 3 ####[facility] [facility] [place] [address], [facility] Lymphocytes (Bld) [#/Vol] 1.8 10*3/uL Normal 1.2-4.0 [facility] Comment on above: Performed By: #### 5 0103 ####[facility] [facility].[address] Lymphocytes/100 WBC (Bld) 20.4 % Normal 20.0-45.0 [facility] Comment on above: Performed By: #### 5 0103 ####[facility] [facility].[address] MCH (RBC) [Entitic mass] 28.6 pg Normal 27.0-33.0 [facility] Comment on above: Performed By: #### 5 3 ####[facility] [facility].[address] MCHC (RBC) [Mass/Vol] 31.0 g/dL Low 32.0-35.0 [facility] Comment on above: Performed By: #### 5 0103 ####[facility] [facility].[address] MCV (RBC) [Entitic vol] 92.0 fL Normal 82.0-98.0 [facility] Comment on above: Performed By: #### 5 3 ####[facility] [facility].[address] Monocytes (Bld) [#/Vol] 0.9 10*3/uL Normal 0.1-1.0 [facility] Comment on above: Performed By: #### 5 3 ####[facility] MONOS 9.9 % Normal 5.0-12.0 [facility] Comment on above: Performed By: #### 5 3 ####[facility] [facility].[address] Neutrophils/100 WBC (Bld) 62.9 % Normal 40.0-72.0 [facility] Comment on above: Performed By: #### 5 0103 ####[facility] [facility].[address] Nucleated RBC/100 WBC (Bld) [Ratio] 0 % Normal 0-0 [facility] Comment on above: Performed By: #### 5 0103 ####[facility] PLAT CNT 387 10*3/uL Normal 150-400 [facility] Comment on above: Performed By: #### 5 0103 ####[facility] RBC (Bld) [#/Vol] 3.01 10*6/uL Low 4.20-5.70 [facility] Comment on above: Performed By: #### 5 0103 ####[facility] WBC (Bld) [#/Vol] 8.82 10*3/uL Normal 4.00-10.60 [facility] Comment on above: Performed By: #### 5 0103 ####[facility] CPKon 05-28-2021 CK [Catalytic activity/Vol] 19 U/L Low 30-223 [facility] Comment on above: Performed By: #### 2 5508, 60595, 72264, 51917 ####[facility] MAGNESIUM BLOODon 05-28-2021 Magnesium [Mass/Vol] 1.9 mg/dL Normal 1.9-2.7 [facility] Comment on above: Order Comment: No: D o not add to previous draw Performed By: #### 2 5508, 19477, 98740, 60110 ####[facility] [place] [address], [facility] Operative Reporton 1 Operative Report Normal The [facility] PHOSPHORUS BLOODon 1 Phosphate [Mass/Vol] 4.5 mg/dL Normal 2.5-5.0 [facility] Comment on above: Performed By: #### 2 5508, 96052, 34680, 35015 ####[facility] [place] [address], [place] POC GLUCOSE LABon 05-28-2021 Glucose [Mass/Vol] 120 mg/dL High 70-100 [facility] Comment on above: Performed By: #### 8 5499 ####[facility] [place] [address], [place] Glucose [Mass/Vol] 130 mg/dL High 70-100 [facility] Comment on above: Performed By: #### 8 5499 ####[facility] [place] [address], [place] Glucose [Mass/Vol] 117 mg/dL High 70-100 [facility] Comment on above: Performed By: #### 8 5499 ####[facility] [place] [address], [place] Glucose [Mass/Vol] 175 mg/dL High 70-100 [facility] Comment on above: Performed By: #### 8 5499 ####[facility] [place] [address], [place] Glucose [Mass/Vol] 107 mg/dL High 70-100 [facility] Comment on above: Performed By: #### 8 5499 ####[facility] [place] [address], [place] BASIC METABOLIC PANELon 10- Calcium [Mass/Vol] 8.4 mg/dL Low 8.6-10.3 [facility] Comment on above: Order Comment: No: D o not add to previous draw Performed By: #### 0 0071, 99549, 45315 ####[facility] [place] [address], [facility] Chloride [Moles/Vol] 99 mmol/L Normal 98-107 [facility] Comment on above: Order Comment: No: D o not add to previous draw Performed By: #### 0 0071, , 24725 ####[facility] [place] [address], [facility] CO2 [Moles/Vol] 29 mmol/L Normal 21-31 [facility] Comment on above: Order Comment: No: D o not add to previous draw Performed By: #### 0 0071, , 91265 ####[facility] [place] [address], [facility] Creatinine [Mass/Vol] 1.78 mg/dL High 0.70-1.30 [facility] Comment on above: Order Comment: No: D o not add to previous draw Performed By: #### 0 0071, , 83062 ####[facility] eGFR- 45 ml/min/1.73sq m Abnormal >60 [facility] Comment on above: Order Comment: No: D o not add to previous draw Result Comment: Calc ulation may not be valid for patients over 70 years Performed By: #### 0 0071, , 86680 ####[facility] eGFR- non- 37 ml/min/1.73sq m Abnormal >60 [facility] Comment on above: Order Comment: No: D o not add to previous draw Result Comment: Calc ulation may not be valid for patients over 70 years Performed By: #### 0 0071, 79848, 02156 ####[facility] [place] [address], [facility] Glucose [Mass/Vol] 96 mg/dL Normal 70-100 [facility] Comment on above: Order Comment: No: D o not add to previous draw Performed By: #### 0 0071, , 82428 ####[facility] [place] [address], [facility] Potassium [Moles/Vol] 4.7 mmol/L Normal 3.5-5.1 [facility] Comment on above: Order Comment: No: D o not add to previous draw Performed By: #### 0 0071, , 87054 ####[facility] [id number], [facility] Sodium [Moles/Vol] 133 mmol/L Low 136-145 [facility] Comment on above: Order Comment: No: D o not add to previous draw Performed By: #### 0 0071, , 65488 ####[facility] [facility] [place] [address], [facility] Urea nitrogen [Mass/Vol] 33 mg/dL High 7-25 [facility] Comment on above: Order Comment: No: D o not add to previous draw Performed By: #### 0 0071, , 08775 ####[facility] [place] [address], [place] C REACTIVE PROTEINon 021 CRP [Mass/Vol] 47.2 mg/L High 0.0-7.0 [facility] Comment on above: Order Comment: Yes: Add to Previous draw if able Performed By: #### 6 1405 ####[facility] [place] [address], [facility] CBC COMPLETE BLOOD COUNTon 1 Erythrocyte distribution width (RBC) [Ratio] 15.5 % High 11.5-15.0 [facility] Comment on above: Order Comment: No: D o not add to previous drawNurse draw Performed By: #### 5 6506, 99271 ####[facility] Hematocrit (Bld) [Volume fraction] 24.7 % Low 39.0-50.0 [facility] Comment on above: Order Comment: No: D o not add to previous drawNurse draw Performed By: #### 5 6506, 46624 ####[facility] Hemoglobin (Bld) [Mass/Vol] 7.7 g/dL Low 13.0-17.0 [facility] Comment on above: Order Comment: No: D o not add to previous drawNurse draw Performed By: #### 5 1056, 78708 ####[facility] MCH (RBC) [Entitic mass] 28.5 pg Normal 27.0-33.0 [facility] Comment on above: Order Comment: No: D o not add to previous drawNurse draw Performed By: #### 5 4066, 88721 ####[facility] MCHC (RBC) [Mass/Vol] 31.2 g/dL Low 32.0-35.0 [facility] Comment on above: Order Comment: No: D o not add to previous drawNurse draw Performed By: #### 5 1006, 77496 ####[facility]3000 [facility] [place] [address], [facility] MCV (RBC) [Entitic vol] 91.5 fL Normal 82.0-98.0 [facility] Comment on above: Order Comment: No: D o not add to previous drawNurse draw Performed By: #### 5 6506, 99306 ####[facility] [facility] [place] [address], [facility] Nucleated RBC/100 WBC (Bld) [Ratio] 0 % Normal 0-0 [facility] Comment on above: Order Comment: No: D o not add to previous drawNurse draw Performed By: #### 5 6506, 84330 ####[facility] [facility] [place] [address], [facility] PLAT CNT 332 10*3/uL Normal 150-400 [facility] Comment on above: Order Comment: No: D o not add to previous drawNurse draw Performed By: #### 5 6506, 24043 ####[facility]3000 [facility] [place] [address], [facility] RBC (Bld) [#/Vol] 2.70 10*6/uL Low 4.20-5.70 [facility] Comment on above: Order Comment: No: D o not add to previous drawNurse draw Performed By: #### 5 6506, 24255 ####[place] [id number] [facility] [place] [address], [facility] WBC (Bld) [#/Vol] 7.87 10*3/uL Normal 4.00-10.60 [facility] Comment on above: Order Comment: No: D o not add to previous drawNurse draw Performed By: #### 5 6506, 17514 ####[facility] [facility] [place] [address], [facility] MAGNESIUM BLOODon 05-27-2021 Magnesium [Mass/Vol] 2.1 mg/dL Normal 1.9-2.7 [facility] Comment on above: Order Comment: No: D o not add to previous draw Performed By: #### 0 0071, 26947, 18229 ####[facility]3000 [facility] [place] [address], [facility] POC GLUCOSE LABon 05-27-2021 Glucose [Mass/Vol] 134 mg/dL High 70-100 [facility] Comment on above: Performed By: #### 8 5499 ####[facility]3000 [facility] [place] [address], [facility] Glucose [Mass/Vol] 109 mg/dL High 70-100 [facility] Comment on above: Performed By: #### 8 5499 ####[facility] [facility] [place] [address], [facility] Glucose [Mass/Vol] 151 mg/dL High 70-100 [facility] Comment on above: Performed By: #### 8 5499 ####[facility] [facility] [place] [address], [facility] Glucose [Mass/Vol] 114 mg/dL High 70-100 [facility] Comment on above: Performed By: #### 8 5499 ####[facility]3000 [facility].[address] PORTABLE CHEST 1 VIEWon PORTABLE CHEST 1 VIEW Normal [facility] Comment on above: Order Comment: evalu ate for Atelectasis RBC'S 1 UNITon 05-27-2021 CROSSMATCH INTERP 1 COMP Normal The [facility] Comment on above: Performed By: #### 8 6001 ####[facility]3000 [facility].[address] PRODUCT CODE 1 E0336 Normal [facility] Comment on above: Performed By: #### 8 6001 ####[facility]3000 [facility].[address] PRODUCT STATUS 1 PT Normal [facility] Comment on above: Result Comment: Resu lt changed by IF on 05/27/2021 11:45. The previous value was XM.Result changed by IF on 05/28/2021 00:30. The previous value was IS. Performed By: #### 8 6001 ####[facility] [place] [address], [facility] UNIT ABO 1 O Normal [facility] Comment on above: Performed By: #### 8 6001 ####[facility] UNIT ID 1 [id number] Normal [facility] Comment on above: Performed By: #### 8 6001 ####[facility]3000 [facility].[address] UNIT RH 1 Negative Normal [facility] Comment on above: Performed By: #### 8 6001 ####[facility] SEDIMENTATION RATEon 021 SED RATE 48 mm/hr High 0-10 [facility] Comment on above: Performed By: #### 5 6506, 28643 ####[facility]3000 [facility].[address] VANCOMYCIN RANDOMon 05-27-20 21 VANCOMYCIN RAND 12.2 mcg/mL Normal [facility] Comment on above: Performed By: #### 0 0071, 38906, 23389 ####[facility] BASIC METABOLIC PANELon 10-0 Calcium [Mass/Vol] 8.2 mg/dL Low 8.6-10.3 [facility] Comment on above: Order Comment: No: D o not add to previous draw Performed By: #### 1 0070, 00073 ####[facility] Chloride [Moles/Vol] 98 mmol/L Normal 98-107 [facility] Comment on above: Order Comment: No: D o not add to previous draw Performed By: #### 1 69, 94727 ####[facility] [place] [address], [facility] CO2 [Moles/Vol] 30 mmol/L Normal 21-31 [facility] Comment on above: Order Comment: No: D o not add to previous draw Performed By: #### 1 69, 04047 ####[facility] [facility] [place] [address], [facility] Creatinine [Mass/Vol] 1.78 mg/dL High 0.70-1.30 [facility] Comment on above: Order Comment: No: D o not add to previous draw Performed By: #### 1 69, 47841 ####[facility] [facility] [place] [address], [facility] eGFR- 45 ml/min/1.73sq m Abnormal >60 [facility] Comment on above: Order Comment: No: D o not add to previous draw Result Comment: Calc ulation may not be valid for patients over 70 years Performed By: #### 1 69, 83426 ####[facility] [facility] [place] [address], [facility] eGFR- non- 37 ml/min/1.73sq m Abnormal >60 [facility] Comment on above: Order Comment: No: D o not add to previous draw Result Comment: Calc ulation may not be valid for patients over 70 years Performed By: #### 1 69, 49626 ####[facility] [place] [address], [facility] Glucose [Mass/Vol] 97 mg/dL Normal 70-100 [facility] Comment on above: Order Comment: No: D o not add to previous draw Performed By: #### 1 69, 13974 ####[facility] Potassium [Moles/Vol] 4.8 mmol/L Normal 3.5-5.1 [facility] Comment on above: Order Comment: No: D o not add to previous draw Performed By: #### 1 69, 73797 ####[facility] Sodium [Moles/Vol] 131 mmol/L Low 136-145 [facility] Comment on above: Order Comment: No: D o not add to previous draw Performed By: #### 1 69, 90511 ####[facility] Urea nitrogen [Mass/Vol] 35 mg/dL High 7-25 [facility] Comment on above: Order Comment: No: D o not add to previous draw Performed By: #### 1 69, 14878 ####[facility]3000 [facility].[address] CBC COMPLETE BLOOD COUNTon 1 - Erythrocyte distribution width (RBC) [Ratio] 15.4 % High 11.5-15.0 [facility] Comment on above: Order Comment: No: D o not add to previous drawNurse draw Performed By: #### 5 0608 ####[facility]3000 [facility].[address] Hematocrit (Bld) [Volume fraction] 24.3 % Low 39.0-50.0 [facility] Comment on above: Order Comment: No: D o not add to previous drawNurse draw Performed By: #### 5 0608 ####[facility]3000 [facility].[address] Hemoglobin (Bld) [Mass/Vol] 7.9 g/dL Low 13.0-17.0 [facility] Comment on above: Order Comment: No: D o not add to previous drawNurse draw Performed By: #### 5 0608 ####[facility] MCH (RBC) [Entitic mass] 28.6 pg Normal 27.0-33.0 [facility] Comment on above: Order Comment: No: D o not add to previous drawNurse draw Performed By: #### 5 0608 ####[facility] MCHC (RBC) [Mass/Vol] 32.5 g/dL Normal 32.0-35.0 [facility] Comment on above: Order Comment: No: D o not add to previous drawNurse draw Performed By: #### 5 0608 ####[address] MCV (RBC) [Entitic vol] 88.0 fL Normal 82.0-98.0 [facility] Comment on above: Order Comment: No: D o not add to previous drawNurse draw Performed By: #### 5 0608 ####[address] Nucleated RBC/100 WBC (Bld) [Ratio] 0 % Normal 0-0 [facility] Comment on above: Order Comment: No: D o not add to previous drawNurse draw Performed By: #### 5 0608 ####[place] [address], [facility] PLAT CNT 320 10*3/uL Normal 150-400 [facility] Comment on above: Order Comment: No: D o not add to previous drawNurse draw Performed By: #### 5 0608 ####[place] [address], [facility] RBC (Bld) [#/Vol] 2.76 10*6/uL Low 4.20-5.70 The [facility] Comment on above: Order Comment: No: D o not add to previous drawNurse draw Performed By: #### 5 0608 ####[facility] [place] [address], [facility] WBC (Bld) [#/Vol] 7.52 10*3/uL Normal 4.00-10.60 [facility] Comment on above: Order Comment: No: D o not add to previous drawNurse draw Performed By: #### 5 0608 ####[facility] [place] [address], [facility] MAGNESIUM BLOODon 05-26-2021 Magnesium [Mass/Vol] 2.1 mg/dL Normal 1.9-2.7 [facility] Comment on above: Order Comment: No: D o not add to previous draw Performed By: #### 1 0070, 98212 ####[facility] [facility] [place] [address], [facility] POC GLUCOSE LABon 05-26-2021 Glucose [Mass/Vol] 138 mg/dL High 70-100 [facility] Comment on above: Performed By: #### 8 5499 ####[facility] [facility] [place] [address], [facility] Glucose [Mass/Vol] 119 mg/dL High 70-100 [facility] Comment on above: Performed By: #### 8 5499 ####[facility] [facility] [place] [address], [facility] Glucose [Mass/Vol] 118 mg/dL High 70-100 [facility] Comment on above: Performed By: #### 8 5499 ####[facility]3000 [facility] [place] [address], [facility] PORTABLE CHEST 1 VIEWon PORTABLE CHEST 1 VIEW Normal [facility] Comment on above: Order Comment: evalu ate for Atelectasis BASIC METABOLIC PANELon Calcium [Mass/Vol] 8.1 mg/dL Low 8.6-10.[address] [facility] Comment on above: Order Comment: No: D o not add to previous draw Performed By: #### 3 0953, 44235, 13952 ####[facility] [place] [address], [facility] Chloride [Moles/Vol] 95 mmol/L Low 98-107 [facility] Comment on above: Order Comment: No: D o not add to previous draw Performed By: #### 3 0953, 82768, 99612 ####[facility] [place] [address], [facility] CO2 [Moles/Vol] 27 mmol/L Normal 21-31 [facility] Comment on above: Order Comment: No: D o not add to previous draw Performed By: #### 3 0953, 00270, 91485 ####[facility]3000 [facility] [place] [address], [facility] Creatinine [Mass/Vol] 2.13 mg/dL High 0.70-1.30 [facility] Comment on above: Order Comment: No: D o not add to previous draw Performed By: #### 3 0953, 03700, 68195 ####[facility]3000 [facility].[address] eGFR- 37 ml/min/1.73sq m Abnormal >60 [facility] Comment on above: Order Comment: No: D o not add to previous draw Result Comment: Calc ulation may not be valid for patients over 70 years Performed By: #### 3 0953, 02836, 01480 ####[facility] [facility] [place] [address], [facility] eGFR- non- 30 ml/min/1.73sq m Abnormal >60 [facility] Comment on above: Order Comment: No: D o not add to previous draw Result Comment: Calc ulation may not be valid for patients over 70 years Performed By: #### 3 0953, 05054, 02090 ####[facility] [id number], [facility] Glucose [Mass/Vol] 122 mg/dL High 70-100 [facility] Comment on above: Order Comment: No: D o not add to previous draw Performed By: #### 3 0953, 15536, 33385 ####[facility] [id number], [facility] Potassium [Moles/Vol] 4.8 mmol/L Normal 3.5-5.1 [facility] Comment on above: Order Comment: No: D o not add to previous draw Performed By: #### 3 0953, 01440, 52380 ####[facility] [id number], [facility] Sodium [Moles/Vol] 128 mmol/L Low 136-145 [facility] Comment on above: Order Comment: No: D o not add to previous draw Performed By: #### 3 53, 07061, 63484 ####[facility] [facility] [place] [address], [facility] Urea nitrogen [Mass/Vol] 35 mg/dL High 7-25 [facility] Comment on above: Order Comment: No: D o not add to previous draw Performed By: #### 3 0953, 85908, 09566 ####[facility]3000 [facility].[address] CBC COMPLETE BLOOD COUNTon 1 - Erythrocyte distribution width (RBC) [Ratio] 15.8 % High 11.5-15.0 [facility] Comment on above: Order Comment: No: D o not add to previous draw Performed By: #### 5 0608 ####[facility] [place] [address], [facility] Hematocrit (Bld) [Volume fraction] 22.3 % Low 39.0-50.0 [facility] Comment on above: Order Comment: No: D o not add to previous draw Performed By: #### 5 0608 ####[facility]3000 [facility].[address] Hemoglobin (Bld) [Mass/Vol] 7.3 g/dL Low 13.0-17.0 [facility] Comment on above: Order Comment: No: D o not add to previous draw Performed By: #### 5 0608 ####[facility] MCH (RBC) [Entitic mass] 28.7 pg Normal 27.0-33.0 [facility] Comment on above: Order Comment: No: D o not add to previous draw Performed By: #### 5 0608 ####[facility] MCHC (RBC) [Mass/Vol] 32.7 g/dL Normal 32.0-35.0 [facility] Comment on above: Order Comment: No: D o not add to previous draw Performed By: #### 5 0608 ####[address] MCV (RBC) [Entitic vol] 87.8 fL Normal 82.0-98.0 [facility] Comment on above: Order Comment: No: D o not add to previous draw Performed By: #### 5 0608 ####[facility] [place] [address] Nucleated RBC/100 WBC (Bld) [Ratio] 0 % Normal 0-0 [facility] Comment on above: Order Comment: No: D o not add to previous draw Performed By: #### 5 0608 ####[facility] [place] [address], [facility] PLAT CNT 292 10*3/uL Normal 150-400 [facility] Comment on above: Order Comment: No: D o not add to previous draw Performed By: #### 5 0608 ####[facility] [place] [address], [facility] RBC (Bld) [#/Vol] 2.54 10*6/uL Low 4.20-5.70 [facility] Comment on above: Order Comment: No: D o not add to previous draw Performed By: #### 5 0608 ####[facility] [facility] [place] [address], [facility] WBC (Bld) [#/Vol] 8.90 10*3/uL Normal 4.00-10.60 [facility] Comment on above: Order Comment: No: D o not add to previous draw Performed By: #### 5 0608 ####[facility] [facility].[address] HEMATOCRITon 05-25-2021 Hematocrit (Bld) [Volume fraction] 25.1 % Low 39.0-50.0 [facility] Comment on above: Order Comment: No: D o not add to previous draw Performed By: #### 9 2088, 50546 ####[facility]3000 [facility].[address] HEMOGLOBINon 05-25-2021 Hemoglobin (Bld) [Mass/Vol] 8.4 g/dL Low 13.0-17.0 [facility] Comment on above: Order Comment: No: D o not add to previous draw Performed By: #### 9 2088, 76614 ####[facility] [facility] [place] [address], [facility] MAGNESIUM BLOODon 05-25-2021 Magnesium [Mass/Vol] 2.0 mg/dL Normal 1.9-2.7 [facility] Comment on above: Order Comment: No: D o not add to previous draw Performed By: #### 3 0953, 84247, 47389 ####[facility] [facility] [place] [address], [facility] POC GLUCOSE LABon 05-25-2021 Glucose [Mass/Vol] 136 mg/dL High 70-100 [facility] Comment on above: Performed By: #### 8 5499 ####[facility] [facility] [place] [address], [place] Glucose [Mass/Vol] 115 mg/dL High 70-100 [facility] Comment on above: Performed By: #### 8 5499 ####[facility] [facility] [place] [address], [place] Glucose [Mass/Vol] 72 mg/dL Normal 70-100 [facility] Comment on above: Performed By: #### 8 5499 ####[facility] [facility] [place] [address], [place] Glucose [Mass/Vol] 154 mg/dL High 70-100 [facility] Comment on above: Performed By: #### 8 5499 ####[facility] [facility] [place] [address], [facility] PORTABLE CHEST 1 VIEWon PORTABLE CHEST 1 VIEW Normal [facility] Comment on above: Order Comment: Evalu ate for Effusion RBC'S 2 UNITSon 05-25-2021 CROSSMATCH INTERP 1 COMP Normal The [facility] Comment on above: Performed By: #### 8 6002 ####[facility] [facility] [place] [address], [facility] CROSSMATCH INTERP 2 COMP Normal [facility] Comment on above: Performed By: #### 8 6002 ####[facility] [facility] [place] [address], [facility] PRODUCT CODE 1 [id number] Normal [facility] Comment on above: Performed By: #### 8 6002 ####[facility] [place] [address], [facility] PRODUCT CODE 2 E0336 Normal [facility] Comment on above: Performed By: #### 8 6002 ####[facility] [place] [address], [facility] PRODUCT STATUS 1 PT Normal The [facility] Comment on above: Result Comment: Resu lt changed by IF on 05/25/2021 13:50. The previous value was XM.Result changed by IF on 05/26/2021 00:30. The previous value was IS. Performed By: #### 8 6002 ####[facility] [facility] [place] [address], [facility] PRODUCT STATUS 2 PT Normal The [facility] Comment on above: Result Comment: Resu lt changed by IF on 05/25/2021 09:50. The previous value was XM.Result changed by IF on 05/26/2021 00:30. The previous value was IS. Performed By: #### 8 6002 ####[facility] [facility] [place] [address], [facility] UNIT ABO 1 O Normal [facility] Comment on above: Performed By: #### 8 6002 ####[facility] [facility] [place] [address], [facility] UNIT ABO 2 O Normal [facility] Comment on above: Performed By: #### 8 6002 ####[facility] [facility] [place] [address], [facility] UNIT ID 1 [id number] Normal [facility] Comment on above: Performed By: #### 8 6002 ####[facility] [place] [address], [facility] UNIT ID 2 [id number] Normal [facility] Comment on above: Performed By: #### 8 6002 ####[facility] [place] [address], [place] UNIT RH 1 Positive Normal [facility] Comment on above: Performed By: #### 8 6002 ####[facility] [place] [address], [place] UNIT RH 2 Positive Normal [facility] Comment on above: Performed By: #### 8 6002 ####[facility] [place] [address], [place] VANCOMYCIN TIMEDon VANCOMYCIN TIMED 24.3 mcg/mL Normal [facility] Comment on above: Performed By: #### 3 0953, 51312, 65047 ####[facility] [place] [address], [facility] BASIC METABOLIC PANELon 10-0 Calcium [Mass/Vol] 7.8 mg/dL Low 8.6-10.3 [facility] Comment on above: Order Comment: No: D o not add to previous draw Performed By: #### 0 0071, 74895, 52048, 60680 ####[facility] [place] [address], [place] Chloride [Moles/Vol] 97 mmol/L Low 98-107 [facility] Comment on above: Order Comment: No: D o not add to previous draw Performed By: #### 0 0071, 69342, 74698, 57195 ####[facility] [place] [address], [place] CO2 [Moles/Vol] 30 mmol/L Normal 21-31 [facility] Comment on above: Order Comment: No: D o not add to previous draw Performed By: #### 0 0071, 30476, 02109, 55859 ####[facility] [place] [address], [place] Creatinine [Mass/Vol] 1.70 mg/dL High 0.70-1.30 [facility] Comment on above: Order Comment: No: D o not add to previous draw Performed By: #### 0 0071, 91110, 99513, 56621 ####[facility] [place] [address], [facility] eGFR- 48 ml/min/1.73sq m Abnormal >60 [facility] Comment on above: Order Comment: No: D o not add to previous draw Result Comment: Calc ulation may not be valid for patients over 70 years Performed By: #### 0 0071, 65828, 99107, 04012 ####[facility] eGFR- non- 39 ml/min/1.73sq m Abnormal >60 [facility] Comment on above: Order Comment: No: D o not add to previous draw Result Comment: Calc ulation may not be valid for patients over 70 years Performed By: #### 0 0071, 83348, 15722, 98095 ####[facility] [address], [facility] Glucose [Mass/Vol] 132 mg/dL High 70-100 [facility] Comment on above: Order Comment: No: D o not add to previous draw Performed By: #### 0 0071, 49088, 90119, 27457 ####[facility] [place] [address], [facility] Potassium [Moles/Vol] 5.2 mmol/L High 3.5-5.1 [facility] Comment on above: Order Comment: No: D o not add to previous draw Performed By: #### 0 0071, 01639, 14176, 12988 ####[facility] [id number], [place] Sodium [Moles/Vol] 131 mmol/L Low 136-145 [facility] Comment on above: Order Comment: No: D o not add to previous draw Performed By: #### 0 0071, 07210, 43899, 43336 ####[facility]3000 [facility].[address] Urea nitrogen [Mass/Vol] 27 mg/dL High 7-25 [facility] Comment on above: Order Comment: No: D o not add to previous draw Performed By: #### 0 0071, 25760, 77919, 12245 ####[facility]3000 [facility].[address] CBC COMPLETE BLOOD COUNTon Erythrocyte distribution width (RBC) [Ratio] 14.5 % Normal 11.5-15.0 [facility] Comment on above: Order Comment: No: D o not add to previous draw Performed By: #### 5 0608 ####[facility]3000 [facility].[address] Hematocrit (Bld) [Volume fraction] 23.1 % Low 39.0-50.0 [facility] Comment on above: Order Comment: No: D o not add to previous draw Performed By: #### 5 0608 ####[facility]3000 [facility].[address] Hemoglobin (Bld) [Mass/Vol] 7.4 g/dL Low 13.0-17.0 [facility] Comment on above: Order Comment: No: D o not add to previous draw Performed By: #### 5 0608 ####[facility]3000 [facility] [place] [address], [facility] MCH (RBC) [Entitic mass] 28.9 pg Normal 27.0-33.0 [facility] Comment on above: Order Comment: No: D o not add to previous draw Performed By: #### 5 0608 ####[facility] MCHC (RBC) [Mass/Vol] 32.0 g/dL Normal 32.0-35.0 [facility] Comment on above: Order Comment: No: D o not add to previous draw Performed By: #### 5 0608 ####[facility]3000 [facility] [place] [address], [facility] MCV (RBC) [Entitic vol] 90.2 fL Normal 82.0-98.0 [facility] Comment on above: Order Comment: No: D o not add to previous draw Performed By: #### 5 0608 ####[address] Nucleated RBC/100 WBC (Bld) [Ratio] 0 % Normal 0-0 [facility] Comment on above: Order Comment: No: D o not add to previous draw Performed By: #### 5 0608 ####[facility] [place] [address], [facility] PLAT CNT 312 10*3/uL Normal 150-400 [facility] Comment on above: Order Comment: No: D o not add to previous draw Performed By: #### 5 0608 ####[address] [place] [address], [facility] RBC (Bld) [#/Vol] 2.56 10*6/uL Low 4.20-5.70 [facility] Comment on above: Order Comment: No: D o not add to previous draw Performed By: #### 5 0608 ####[facility] [facility] [place] [address], [facility] WBC (Bld) [#/Vol] 10.23 10*3/uL Normal 4.00-10.60 [facility] Comment on above: Order Comment: No: D o not add to previous draw Performed By: #### 5 0608 ####[address] [place] [address], [facility] MAGNESIUM BLOODon 05-24-2021 Magnesium [Mass/Vol] 1.8 mg/dL Low 1.9-2.7 [facility] Comment on above: Order Comment: No: D o not add to previous draw Performed By: #### 0 0071, 07004, 67285, 20750 ####[facility] [place] [address], [facility] PHOSPHORUS BLOODon Phosphate [Mass/Vol] 5.0 mg/dL Normal 2.5-5.0 [facility] Comment on above: Order Comment: No: D o not add to previous draw Performed By: #### 0 0071, 38099, 31735, 37780 ####[facility] [facility] [place] [address], [facility] POC GLUCOSE LABon 05-24-2021 Glucose [Mass/Vol] 156 mg/dL High 70-100 [facility] Comment on above: Performed By: #### 8 5499 ####[facility] [facility] [place] [address], [place] Glucose [Mass/Vol] 129 mg/dL High 70-100 [facility] Comment on above: Performed By: #### 8 5499 ####[facility] [facility] [place] [address], [place] Glucose [Mass/Vol] 188 mg/dL High 70-100 [facility] Comment on above: Performed By: #### 8 5499 ####[facility] [facility] [place] [address], [place] Glucose [Mass/Vol] 141 mg/dL High 70-100 [facility] Comment on above: Performed By: #### 8 5499 ####[facility] [place] [address], [place] RBC'S 1 UNITon 05-24-2021 CROSSMATCH INTERP 1 COMP Normal [facility] Comment on above: Performed By: #### 8 6001 ####[facility] PRODUCT CODE 1 E0332 Normal [facility] Comment on above: Performed By: #### 8 6001 ####[facility] PRODUCT STATUS 1 PT Normal [facility] Comment on above: Result Comment: Resu lt changed by IF on 05/24/2021 11:33. The previous value was XM.Result changed by IF on 05/25/2021 00:30. The previous value was IS. Performed By: #### 8 6001 ####[facility] UNIT ABO 1 O Normal [facility] Comment on above: Performed By: #### 8 6001 ####[facility] UNIT ID 1 [id number] Normal [facility] Comment on above: Performed By: #### 8 6001 ####[facility] [facility] [place] [address], [facility] UNIT RH 1 Positive Normal [facility] Comment on above: Performed By: #### 8 6001 ####[facility] [place] [address], [facility] TYPE AND SCREENon 05-24-2021 ABO INTERPRETATION O Normal [facility] Comment on above: Performed By: #### 6 2586 ####[facility] [place] [address], [facility] RH INTERPRETATION Positive Normal [facility] Comment on above: Performed By: #### 6 2586 ####[facility] [place] [address], [facility] VANCOMYCIN TIMEDon VANCOMYCIN TIMED 42.1 mcg/mL Normal [facility] Comment on above: Performed By: #### 0 0071, 88582, 98800, 16613 ####[facility] BASIC METABOLIC PANELon 09-3 Calcium [Mass/Vol] 8.7 mg/dL Normal 8.6-10.3 [facility] Comment on above: Order Comment: No: D o not add to previous draw Performed By: #### 4 1000, 27357, 59233 ####[facility] [place] [address], [facility] Chloride [Moles/Vol] 97 mmol/L Low 98-107 [facility] Comment on above: Order Comment: No: D o not add to previous draw Performed By: #### 4 1000, 58601, 12648 ####[facility] [place] [address], [facility] CO2 [Moles/Vol] 32 mmol/L High 21-31 [facility] Comment on above: Order Comment: No: D o not add to previous draw Performed By: #### 4 1000, 38223, 63375 ####[facility] [place] [address], [facility] Creatinine [Mass/Vol] 1.31 mg/dL High 0.70-1.30 [facility] Comment on above: Order Comment: No: D o not add to previous draw Performed By: #### 4 1000, 71265, 00246 ####[facility] eGFR- non- 53 ml/min/1.73sq m Abnormal >60 [facility] Comment on above: Order Comment: No: D o not add to previous draw Result Comment: Calc ulation may not be valid for patients over 70 years Performed By: #### 4 1000, 57095, 85069 ####[facility] [facility] [place] [address], [facility] GFR/1.73 sq M.predicted among blacks MDRD (S/P/Bld) [Vol rate/Area] mL/min/{1.73_m2} Normal >60 [facility] Comment on above: Order Comment: No: D o not add to previous draw Result Comment: Calc ulation may not be valid for patients over 70 years Performed By: #### 4 1000, 50254, 27501 ####[facility] [facility] [place] [address], [facility] Glucose [Mass/Vol] 105 mg/dL High 70-100 [facility] Comment on above: Order Comment: No: D o not add to previous draw Performed By: #### 4 1000, 52353, 49909 ####[facility] [facility] [place] [address], [facility] Potassium [Moles/Vol] 4.0 mmol/L Normal 3.5-5.1 [facility] Comment on above: Order Comment: No: D o not add to previous draw Performed By: #### 4 1000, 38989, 01155 ####[facility] [facility] [place] [address], [facility] Sodium [Moles/Vol] 133 mmol/L Low 136-145 [facility] Comment on above: Order Comment: No: D o not add to previous draw Performed By: #### 4 1000, 34818, 46320 ####[facility] [facility] [place] [address], [facility] Urea nitrogen [Mass/Vol] 24 mg/dL Normal 7-25 [facility] Comment on above: Order Comment: No: D o not add to previous draw Performed By: #### 4 1000, 11470, 95780 ####[facility] CBC COMPLETE BLOOD COUNTon 0 05-23-2021 Erythrocyte distribution width (RBC) [Ratio] 14.3 % Normal 11.5-15.0 [facility] Comment on above: Order Comment: No: D o not add to previous draw Performed By: #### 5 0608 ####[facility]3000 [facility].[address] Hematocrit (Bld) [Volume fraction] 29.4 % Low 39.0-50.0 [facility] Comment on above: Order Comment: No: D o not add to previous draw Performed By: #### 5 0608 ####[address] Hemoglobin (Bld) [Mass/Vol] 9.4 g/dL Low 13.0-17.0 [facility] Comment on above: Order Comment: No: D o not add to previous draw Performed By: #### 5 0608 ####[place] [address] [facility].[address] MCH (RBC) [Entitic mass] 28.5 pg Normal 27.0-33.0 [facility] Comment on above: Order Comment: No: D o not add to previous draw Performed By: #### 5 0608 ####[facility]3000 [facility].[address] MCHC (RBC) [Mass/Vol] 32.0 g/dL Normal 32.0-35.0 [facility] Comment on above: Order Comment: No: D o not add to previous draw Performed By: #### 5 0608 ####[address] MCV (RBC) [Entitic vol] 89.1 fL Normal 82.0-98.0 [facility] Comment on above: Order Comment: No: D o not add to previous draw Performed By: #### 5 0608 ####[facility] [facility].[address] Nucleated RBC/100 WBC (Bld) [Ratio] 0 % Normal 0-0 [facility] Comment on above: Order Comment: No: D o not add to previous draw Performed By: #### 5 0608 ####[facility] [facility] [place] [address], [facility] PLAT CNT 342 10*3/uL Normal 150-400 [facility] Comment on above: Order Comment: No: D o not add to previous draw Performed By: #### 5 0608 ####[facility] [place] [address].[address] RBC (Bld) [#/Vol] 3.30 10*6/uL Low 4.20-5.70 [facility] Comment on above: Order Comment: No: D o not add to previous draw Performed By: #### 5 0608 ####[facility] [facility].[address] WBC (Bld) [#/Vol] 7.22 10*3/uL Normal 4.00-10.60 [facility] Comment on above: Order Comment: No: D o not add to previous draw Performed By: #### 5 0608 ####[facility] [facility] [place] [address], [facility] MAGNESIUM BLOODon 05-23-2021 Magnesium [Mass/Vol] 1.9 mg/dL Normal 1.9-2.7 [facility] Comment on above: Order Comment: No: D o not add to previous draw Performed By: #### 4 1000, 85482, 43145 ####[facility] [facility] [place] [address], [facility] PHOSPHORUS BLOODon Phosphate [Mass/Vol] 3.4 mg/dL Normal 2.5-5.0 [facility] Comment on above: Order Comment: No: D o not add to previous draw Performed By: #### 4 1000, 10110, 55390 ####[facility] [place] [address], [place] POC GLUCOSE LABon 05-23-2021 Glucose [Mass/Vol] 141 mg/dL High 70-100 [facility] Comment on above: Performed By: #### 8 5499 ####[facility] [place] [address], [place] Glucose [Mass/Vol] 147 mg/dL High 70-100 [facility] Comment on above: Performed By: #### 8 5499 ####[facility] [place] [address], [place] Glucose [Mass/Vol] 138 mg/dL High 70-100 [facility] Comment on above: Performed By: #### 8 5499 ####[facility] [place] [address], [place] Glucose [Mass/Vol] 112 mg/dL High 70-100 [facility] Comment on above: Performed By: #### 8 5499 ####[facility] [place] [address], [place] Glucose [Mass/Vol] 121 mg/dL High 70-100 [facility] Comment on above: Performed By: #### 8 5499 ####[facility] [place] [address], [place] POC SARS COV2 ANTIGEN NEGATI VEon 05-23-2021 POC SARS COV2 ANTIGEN NEG Negative Normal NEGATIVE [facility] Comment on above: Result Comment: Nega tive results from patients with symptom onset beyond seven days,should be treated presumptive and confirmation with a molecular assay,if necessary, for patient management, may be performed. Negative resultsdo not rule out SARS-CoV-2 infection and should not be used as the solebasis for treatment or patient management decisions, including infectioncontrol decisions. Negative results should be considered in the contextof a patient?s recent exposures, history and the presence of clinicalsigns and symptoms consistent with COVID-19.The [employer] COVID-19 Ag Card is a lateral flow immunoassay intended forthe qualitative detection of nucleocapsid protein antigen [id number] in direct nasal swabs from individuals within the first sevendays of symptom onset. Testing is limited to laboratories certifiedunder the Clinical Laboratory Improvement Amendments of 1988 (CLIA), 42[place]. ???263a, that meet the requirements to perform moderate, high orwaived complexity tests. This test is authorized for use at the Point ofCare (POC), i.e., in patient care settings operating under a CLIACertificate of Waiver, Certificate of Compliance, or Certificate ofAccreditation. Performed By: #### 3 1977 ####[place] [address] [address] PORTABLE CHEST 1 VIEWon 04-26 PORTABLE CHEST 1 VIEW Normal [facility] Comment on above: Order Comment: evalu ate for Atelectasis VANCOMYCIN RANDOMon 05-23-20 21 VANCOMYCIN RAND 19.6 mcg/mL Normal [facility] Comment on above: Order Comment: No: D o not add to previous draw Performed By: #### 9 4980 ####[place] [address] [address] BASIC METABOLIC PANELon 04-25 Calcium [Mass/Vol] 8.6 mg/dL Normal 8.6-10.3 [facility] Comment on above: Order Comment: No: D o not add to previous draw Performed By: #### 0 0071, 15489, 30072 ####[facility] Chloride [Moles/Vol] 98 mmol/L Normal 98-107 [facility] Comment on above: Order Comment: No: D o not add to previous draw Performed By: #### 0 0071, 08833, 41065 ####[facility] [place] [address], [facility] CO2 [Moles/Vol] 33 mmol/L High 21-31 [facility] Comment on above: Order Comment: No: D o not add to previous draw Performed By: #### 0 0071, 77589, 17808 ####[facility] [place] [address], [facility] Creatinine [Mass/Vol] 1.21 mg/dL Normal 0.70-1.30 [facility] Comment on above: Order Comment: No: D o not add to previous draw Performed By: #### 0 0071, 95883, 24221 ####[facility]3000 [facility].[address] eGFR- non- 58 ml/min/1.73sq m Abnormal >60 [facility] Comment on above: Order Comment: No: D o not add to previous draw Result Comment: Calc ulation may not be valid for patients over 70 years Performed By: #### 0 0071, 03915, 71371 ####[facility] [place] [address], [facility] GFR/1.73 sq M.predicted among blacks MDRD (S/P/Bld) [Vol rate/Area] mL/min/{1.73_m2} Normal >60 [facility] Comment on above: Order Comment: No: D o not add to previous draw Result Comment: Calc ulation may not be valid for patients over 70 years Performed By: #### 0 0071, 47039, 30475 ####[facility] [place] [address], [facility] Glucose [Mass/Vol] 115 mg/dL High 70-100 [facility] Comment on above: Order Comment: No: D o not add to previous draw Performed By: #### 0 0071, 89704, 68967 ####[facility] [place] [address], [facility] Potassium [Moles/Vol] 3.9 mmol/L Normal 3.5-5.1 [facility] Comment on above: Order Comment: No: D o not add to previous draw Performed By: #### 0 0071, 58328, 73188 ####[facility] [place] [address], [facility] Sodium [Moles/Vol] 135 mmol/L Low 136-145 [facility] Comment on above: Order Comment: No: D o not add to previous draw Performed By: #### 0 0071, 35618, 57315 ####[facility] [place] [address], [facility] Urea nitrogen [Mass/Vol] 22 mg/dL Normal 7-25 [facility] Comment on above: Order Comment: No: D o not add to previous draw Performed By: #### 0 1, 22716, 79912 ####[facility] [place] [address], [facility] CBC COMPLETE BLOOD COUNTon 0 05-22-2021 Erythrocyte distribution width (RBC) [Ratio] 14.3 % Normal 11.5-15.0 [facility] Comment on above: Order Comment: No: D o not add to previous draw Performed By: #### 5 0608 ####[facility] [place] [address], [facility] Hematocrit (Bld) [Volume fraction] 24.7 % Low 39.0-50.0 [facility] Comment on above: Order Comment: No: D o not add to previous draw Performed By: #### 5 0608 ####[facility] [id number], [facility] Hemoglobin (Bld) [Mass/Vol] 7.6 g/dL Low 13.0-17.0 [facility] Comment on above: Order Comment: No: D o not add to previous draw Performed By: #### 5 0608 ####[place] [address] [address] MCH (RBC) [Entitic mass] 28.3 pg Normal 27.0-33.0 [facility] Comment on above: Order Comment: No: D o not add to previous draw Performed By: #### 5 0608 ####[facility] MCHC (RBC) [Mass/Vol] 30.8 g/dL Low 32.0-35.0 [facility] Comment on above: Order Comment: No: D o not add to previous draw Performed By: #### 5 0608 ####[address] MCV (RBC) [Entitic vol] 91.8 fL Normal 82.0-98.0 [facility] Comment on above: Order Comment: No: D o not add to previous draw Performed By: #### 5 0608 ####[address] Nucleated RBC/100 WBC (Bld) [Ratio] 0 % Normal 0-0 [facility] Comment on above: Order Comment: No: D o not add to previous draw Performed By: #### 5 0608 ####[address] PLAT CNT 313 10*3/uL Normal 150-400 [facility] Comment on above: Order Comment: No: D o not add to previous draw Performed By: #### 5 0608 ####[address] RBC (Bld) [#/Vol] 2.69 10*6/uL Low 4.20-5.70 [facility] Comment on above: Order Comment: No: D o not add to previous draw Performed By: #### 5 0608 ####[facility] [facility] [place] [address], [facility] WBC (Bld) [#/Vol] 7.75 10*3/uL Normal 4.00-10.60 [facility] Comment on above: Order Comment: No: D o not add to previous draw Performed By: #### 5 0608 ####[facility] [facility] [place] [address], [facility] MAGNESIUM BLOODon 05-22-2021 Magnesium [Mass/Vol] 1.9 mg/dL Normal 1.9-2.7 [facility] Comment on above: Order Comment: No: D o not add to previous draw Performed By: #### 0 0071, 98618, 78627 ####[facility] [facility].[address] Operative Reporton Operative Report Normal [facility] POC GLUCOSE LABon 05-22-2021 Glucose [Mass/Vol] 126 mg/dL High 70-100 [facility] Comment on above: Performed By: #### 8 5499 ####[facility] [facility] [place] [address], [facility] Glucose [Mass/Vol] 136 mg/dL High 70-100 [facility] Comment on above: Performed By: #### 8 5499 ####[facility] [facility] [place] [address], [facility] Glucose [Mass/Vol] 156 mg/dL High 70-100 [facility] Comment on above: Performed By: #### 8 5499 ####[facility] [place] [address], [facility] PORTABLE CHEST 1 VIEWon 04-25 PORTABLE CHEST 1 VIEW Normal [facility] Comment on above: Order Comment: Evalu ate for Atelectasis, common RBC'S 1 UNITon 05-22-2021 CROSSMATCH INTERP 1 COMP Normal [facility] Comment on above: Performed By: #### 8 6001 ####[facility] [facility].[address] PRODUCT CODE 1 E0336 Normal [facility] Comment on above: Performed By: #### 8 6001 ####[facility]3000 [facility].[address] PRODUCT STATUS 1 PT Normal [facility] Comment on above: Result Comment: Resu lt changed by IF on 05/22/2021 13:33. The previous value was XM.Result changed by IF on 05/23/2021 00:30. The previous value was IS. Performed By: #### 8 6001 ####[facility] [facility].[address] UNIT ABO 1 O Normal [facility] Comment on above: Performed By: #### 8 6001 ####[facility] [facility].[address] UNIT ID 1 [id number] Normal [facility] Comment on above: Performed By: #### 8 6001 ####[facility] [facility].[address] UNIT RH 1 Positive Normal [facility] Comment on above: Performed By: #### 8 6001 ####[facility] [facility] [place] [address], [facility] RBC'S 3 UNITSon 05-22-2021 CROSSMATCH INTERP 1 COMP Normal [facility] Comment on above: Order Comment: Hemog lobin < 9 gm/dl with known cardiac or cerebrovascular disease Performed By: #### 8 6003 ####[facility] [place] [address], [facility] CROSSMATCH INTERP 2 COMP Normal [facility] Comment on above: Order Comment: Hemog lobin < 9 gm/dl with known cardiac or cerebrovascular disease Performed By: #### 8 6003 ####[facility] [place] [address], [facility] CROSSMATCH INTERP 3 COMP Normal The [facility] Comment on above: Order Comment: Hemog lobin < 9 gm/dl with known cardiac or cerebrovascular disease Performed By: #### 8 6003 ####[facility] [place] [address], [facility] PRODUCT CODE 1 E0336 Normal The [facility] Comment on above: Order Comment: Hemog lobin < 9 gm/dl with known cardiac or cerebrovascular disease Performed By: #### 8 6003 ####[facility] [place] [address], [facility] PRODUCT CODE 2 E0685 Normal [facility] Comment on above: Order Comment: Hemog lobin < 9 gm/dl with known cardiac or cerebrovascular disease Performed By: #### 8 6003 ####[facility] [place] [address], [facility] PRODUCT CODE 3 E0336 Normal The [facility] Comment on above: Order Comment: Hemog lobin < 9 gm/dl with known cardiac or cerebrovascular disease Performed By: #### 8 6003 ####[facility] [place] [address], [facility] PRODUCT STATUS 1 PT Normal The [facility] Comment on above: Order Comment: Hemog lobin < 9 gm/dl with known cardiac or cerebrovascular disease Result Comment: Resu lt changed by IF on 05/22/2021 17:51. The previous value was XM.Result changed by IF on 05/23/2021 00:30. The previous value was IS. Performed By: #### 8 6003 ####[facility] [place] [address], [facility] PRODUCT STATUS 2 RE Normal The [facility] Comment on above: Order Comment: Hemog lobin < 9 gm/dl with known cardiac or cerebrovascular disease Result Comment: Resu lt changed by IF on 05/24/2021 07:35. The previous value was XM. Performed By: #### 8 6003 ####[facility] [place] [address], [facility] PRODUCT STATUS 3 RE Normal The [facility] Comment on above: Order Comment: Hemog lobin < 9 gm/dl with known cardiac or cerebrovascular disease Result Comment: Resu lt changed by IF on 05/24/2021 07:35. The previous value was XM. Performed By: #### 8 6003 ####[facility] [place] [address], [facility] UNIT ABO 1 O Normal [facility] Comment on above: Order Comment: Hemog lobin < 9 gm/dl with known cardiac or cerebrovascular disease Performed By: #### 8 6003 ####[facility] [place] [address], [facility] UNIT ABO 2 O Normal The [facility] Comment on above: Order Comment: Hemog lobin < 9 gm/dl with known cardiac or cerebrovascular disease Performed By: #### 8 6003 ####[facility] [place] [address], [facility] UNIT ABO 3 O Normal The [facility] Comment on above: Order Comment: Hemog lobin < 9 gm/dl with known cardiac or cerebrovascular disease Performed By: #### 8 6003 ####[facility] [place] [address], [facility] UNIT ID 1 [id number] Normal The [facility] Comment on above: Order Comment: Hemog lobin < 9 gm/dl with known cardiac or cerebrovascular disease Performed By: #### 8 6003 ####[facility] UNIT ID 2 [id number] Normal The [facility] Comment on above: Order Comment: Hemog lobin < 9 gm/dl with known cardiac or cerebrovascular disease Performed By: #### 8 6003 ####[facility] UNIT ID 3 [id number] Normal The [facility] Comment on above: Order Comment: Hemog lobin < 9 gm/dl with known cardiac or cerebrovascular disease Performed By: #### 8 6003 ####[facility] UNIT RH 1 Negative Normal [facility] Comment on above: Order Comment: Hemog lobin < 9 gm/dl with known cardiac or cerebrovascular disease Performed By: #### 8 6003 ####[facility] UNIT RH 2 Positive Normal [facility] Comment on above: Order Comment: Hemog lobin < 9 gm/dl with known cardiac or cerebrovascular disease Performed By: #### 8 6003 ####[facility] UNIT RH 3 Positive Normal [facility] Comment on above: Order Comment: Hemog lobin < 9 gm/dl with known cardiac or cerebrovascular disease Performed By: #### 8 6003 ####[facility] VANCOMYCIN TIMEDon 1 VANCOMYCIN TIMED 19.6 mcg/mL Normal [facility] Comment on above: Performed By: #### 0 0071, 83391, 80580 ####[facility] BASIC METABOLIC PANELon 09-2 Calcium [Mass/Vol] 8.5 mg/dL Low 8.6-10.3 [facility] Comment on above: Order Comment: No: D o not add to previous draw Performed By: #### 1 0070, 79757, 53902 ####[facility] [place] [address], [facility] Chloride [Moles/Vol] 96 mmol/L Low 98-107 [facility] Comment on above: Order Comment: No: D o not add to previous draw Performed By: #### 1 0070, 28865, 82197 ####[facility] [place] [address], [facility] CO2 [Moles/Vol] 37 mmol/L High 21-31 The [facility] Comment on above: Order Comment: No: D o not add to previous draw Performed By: #### 1 0070, 46579, 58076 ####[facility] [place] [address], [facility] Creatinine [Mass/Vol] 0.92 mg/dL Normal 0.70-1.30 [facility] Comment on above: Order Comment: No: D o not add to previous draw Performed By: #### 1 0070, 56768, 26720 ####[facility] [place] [address], [facility] GFR/1.73 sq M.predicted among blacks MDRD (S/P/Bld) [Vol rate/Area] mL/min/{1.73_m2} Normal >60 [facility] Comment on above: Order Comment: No: D o not add to previous draw Result Comment: Calc ulation may not be valid for patients over 70 years Performed By: #### 1 0070, 38352, 91348 ####[facility] [place] [address], [place] GFR/1.73 sq M.predicted among non-blacks MDRD (S/P/Bld) [Vol rate/Area] mL/min/{1.73_m2} Normal >60 [facility] Comment on above: Order Comment: No: D o not add to previous draw Result Comment: Calc ulation may not be valid for patients over 70 years Performed By: #### 1 0070, 99884, 05331 ####[facility] [place] [address], [facility] Glucose [Mass/Vol] 117 mg/dL High 70-100 The [facility] Comment on above: Order Comment: No: D o not add to previous draw Performed By: #### 1 0070, 65021, 22200 ####[facility] [facility] [place] [address], [facility] Potassium [Moles/Vol] 3.9 mmol/L Normal 3.5-5.1 [facility] Comment on above: Order Comment: No: D o not add to previous draw Performed By: #### 1 0070, 53926, 04745 ####[facility] [facility] [place] [address], [facility] Sodium [Moles/Vol] 134 mmol/L Low 136-145 [facility] Comment on above: Order Comment: No: D o not add to previous draw Performed By: #### 1 0070, 56079, 41966 ####[facility] [facility] [place] [address], [facility] Urea nitrogen [Mass/Vol] 17 mg/dL Normal 7-25 [facility] Comment on above: Order Comment: No: D o not add to previous draw Performed By: #### 1 0070, 76911, 74104 ####[facility] [place] [place] [address], [facility] CBC COMPLETE BLOOD COUNTon 0 - Erythrocyte distribution width (RBC) [Ratio] 14.3 % Normal 11.5-15.0 [facility] Comment on above: Order Comment: No: D o not add to previous draw Performed By: #### 5 0608 ####[facility] Hematocrit (Bld) [Volume fraction] 27.2 % Low 39.0-50.0 [facility] Comment on above: Order Comment: No: D o not add to previous draw Performed By: #### 5 0608 ####[facility] Hemoglobin (Bld) [Mass/Vol] 8.1 g/dL Low 13.0-17.0 [facility] Comment on above: Order Comment: No: D o not add to previous draw Performed By: #### 5 0608 ####[address] MCH (RBC) [Entitic mass] 27.6 pg Normal 27.0-33.0 [facility] Comment on above: Order Comment: No: D o not add to previous draw Performed By: #### 5 0608 ####[facility] MCHC (RBC) [Mass/Vol] 29.8 g/dL Low 32.0-35.0 [facility] Comment on above: Order Comment: No: D o not add to previous draw Performed By: #### 5 0608 ####[facility] MCV (RBC) [Entitic vol] 92.8 fL Normal 82.0-98.0 [facility] Comment on above: Order Comment: No: D o not add to previous draw Performed By: #### 5 0608 ####[facility] Nucleated RBC/100 WBC (Bld) [Ratio] 0 % Normal 0-0 [facility] Comment on above: Order Comment: No: D o not add to previous draw Performed By: #### 5 0608 ####[facility] [facility] [place] [address], [facility] PLAT CNT 329 10*3/uL Normal 150-400 The [facility] Comment on above: Order Comment: No: D o not add to previous draw Performed By: #### 5 0608 ####[facility] [facility].[address] RBC (Bld) [#/Vol] 2.93 10*6/uL Low 4.20-5.70 The [facility] Comment on above: Order Comment: No: D o not add to previous draw Performed By: #### 5 0608 ####[facility] [facility].[address] WBC (Bld) [#/Vol] 6.21 10*3/uL Normal 4.00-10.60 [facility] Comment on above: Order Comment: No: D o not add to previous draw Performed By: #### 5 0608 ####[place] [address] [facility].[address] MAGNESIUM BLOODon 05-21-2021 Magnesium [Mass/Vol] 2.0 mg/dL Normal 1.9-2.7 [facility] Comment on above: Order Comment: No: D o not add to previous draw Performed By: #### 1 0070, 84843, 01300 ####[facility] [facility].[address] Operative Reporton 1 Operative Report Normal The [facility] PHOSPHORUS BLOODon 1 Phosphate [Mass/Vol] 4.0 mg/dL Normal 2.5-5.0 [facility] Comment on above: Order Comment: No: D o not add to previous draw Performed By: #### 1 0070, 57940, 52717 ####[facility] [place] [address], [facility] POC GLUCOSE LABon 05-21-2021 Glucose [Mass/Vol] 143 mg/dL High 70-100 [facility] Comment on above: Performed By: #### 8 5499 ####[facility] [place] [address], [place] Glucose [Mass/Vol] 123 mg/dL High 70-100 [facility] Comment on above: Performed By: #### 8 5499 ####[facility] [place] [address], [place] Glucose [Mass/Vol] 128 mg/dL High 70-100 [facility] Comment on above: Performed By: #### 8 5499 ####[facility] [place] [address], [place] Glucose [Mass/Vol] 158 mg/dL High 70-100 [facility] Comment on above: Performed By: #### 8 5499 ####[facility] [facility] [place] [address], [facility] PORTABLE CHEST 1 VIEWon 04-25 PORTABLE CHEST 1 VIEW Normal [facility] Comment on above: Order Comment: evalu ate for Atelectasis PROTHROMBIN TIMEon INR Coag (PPP) [Relative time] 1.12 {INR} Normal 0.91-1.16 [facility] Comment on above: Order Comment: No: D o not add to previous draw Result Comment: ACCC P RECOMMENDED INR FOR WARFARIN THERAPY CONDITION INRPROPHYLAXIS OF VENOUS THROMBOSIS 2-3(HIGH-RISK SURGERY)TREATMENT OF VENOUS THROMBOSIS 2-3TREATMENT OF PULMONARY EMBOLISM 2-3PREVENTION OF SYSTEMIC EMBOLISM: 2-3 ACUTE MYOCARDIAL INFARCTION TISSUE HEART VALVES VALVULAR HEART DISEASE ATRIAL FIBRILLATION RECURRENT SYSTEMIC EMBOLISMMECHANICAL HEART VALVE 2.5-3.5 FROM: ORAL ANTICOAGULANTS. MECHANISM OF ACTION, CLINICALEFFECTIVENESS, AND OPTIMAL THERAPEUTIC RANGE. [id number];108:231S-246S. Performed By: #### 5 6101 ####[place] [id number] [address] PT Coag (PPP) [Time] 14.4 s Normal 12.3-14.8 [facility] Comment on above: Order Comment: No: D o not add to previous draw Result Comment: ALL RESULTS MUST BE INTERPRETED WITH RESPECT TO BLOOD DRAWING ARTIFACTOR DILUTION ERROR OF ANTICOAGULANT AT THE TIME OF SAMPLING. Performed By: #### 5 6101 ####[facility] BASIC METABOLIC PANELon 04-25 Calcium [Mass/Vol] 8.8 mg/dL Normal 8.6-10.3 [facility] Comment on above: Order Comment: No: D o not add to previous draw Performed By: #### 1 0070, 06003, 38156 ####[facility] [facility].[address] Chloride [Moles/Vol] 96 mmol/L Low 98-107 [facility] Comment on above: Order Comment: No: D o not add to previous draw Performed By: #### 1 0070, 30634, 68440 ####[facility] [facility] [place] [address], [facility] CO2 [Moles/Vol] 33 mmol/L High 21-31 [facility] Comment on above: Order Comment: No: D o not add to previous draw Performed By: #### 1 0, 45774, 87614 ####[facility] [place] [address], [facility] Creatinine [Mass/Vol] 0.90 mg/dL Normal 0.70-1.30 [facility] Comment on above: Order Comment: No: D o not add to previous draw Performed By: #### 1 0, 77132, 34158 ####[facility] [place] [address], [place] GFR/1.73 sq M.predicted among blacks MDRD (S/P/Bld) [Vol rate/Area] mL/min/{1.73_m2} Normal >60 [facility] Comment on above: Order Comment: No: D o not add to previous draw Result Comment: Calc ulation may not be valid for patients over 70 years Performed By: #### 1 0, 29878, 68227 ####[facility] [place] [address], [place] GFR/1.73 sq M.predicted among non-blacks MDRD (S/P/Bld) [Vol rate/Area] mL/min/{1.73_m2} Normal >60 [facility] Comment on above: Order Comment: No: D o not add to previous draw Result Comment: Calc ulation may not be valid for patients over 70 years Performed By: #### 1 0, 85444, 10654 ####[facility] [place] [address], [place] Glucose [Mass/Vol] 113 mg/dL High 70-100 [facility] Comment on above: Order Comment: No: D o not add to previous draw Performed By: #### 1 0, 34184, 08918 ####[facility] [place] [address], [place] Potassium [Moles/Vol] 3.6 mmol/L Normal 3.5-5.1 [facility] Comment on above: Order Comment: No: D o not add to previous draw Performed By: #### 1 0070, 13075, 69067 ####[facility] [place] [address], [facility] Sodium [Moles/Vol] 135 mmol/L Low 136-145 [facility] Comment on above: Order Comment: No: D o not add to previous draw Performed By: #### 1 0070, 18255, 98395 ####[facility] [place] [address], [facility] Urea nitrogen [Mass/Vol] 15 mg/dL Normal 7-25 [facility] Comment on above: Order Comment: No: D o not add to previous draw Performed By: #### 1 0, 03245, 80330 ####[facility] [facility] [place] [address], [facility] CBC COMPLETE BLOOD COUNTon 05-20-2021 Erythrocyte distribution width (RBC) [Ratio] 14.1 % Normal 11.5-15.0 [facility] Comment on above: Order Comment: No: D o not add to previous draw Performed By: #### 5 0608 ####[facility] [place] [address], [facility] Hematocrit (Bld) [Volume fraction] 28.9 % Low 39.0-50.0 [facility] Comment on above: Order Comment: No: D o not add to previous draw Performed By: #### 5 0608 ####[facility] [id number], [facility] Hemoglobin (Bld) [Mass/Vol] 8.9 g/dL Low 13.0-17.0 [facility] Comment on above: Order Comment: No: D o not add to previous draw Performed By: #### 5 0608 ####[facility] MCH (RBC) [Entitic mass] 28.3 pg Normal 27.0-33.0 [facility] Comment on above: Order Comment: No: D o not add to previous draw Performed By: #### 5 0608 ####[facility] [facility].[address] MCHC (RBC) [Mass/Vol] 30.8 g/dL Low 32.0-35.0 [facility] Comment on above: Order Comment: No: D o not add to previous draw Performed By: #### 5 0608 ####[facility] [facility].[address] MCV (RBC) [Entitic vol] 92.0 fL Normal 82.0-98.0 [facility] Comment on above: Order Comment: No: D o not add to previous draw Performed By: #### 5 0608 ####[facility] [facility].[address] Nucleated RBC/100 WBC (Bld) [Ratio] 0 % Normal 0-0 [facility] Comment on above: Order Comment: No: D o not add to previous draw Performed By: #### 5 0608 ####[facility] [facility] [place] [address], [facility] PLAT CNT 339 10*3/uL Normal 150-400 [facility] Comment on above: Order Comment: No: D o not add to previous draw Performed By: #### 5 0608 ####[facility] [facility] [place] [address], [facility] RBC (Bld) [#/Vol] 3.14 10*6/uL Low 4.20-5.70 [facility] Comment on above: Order Comment: No: D o not add to previous draw Performed By: #### 5 0608 ####[facility] [facility] [place] [address], [facility] WBC (Bld) [#/Vol] 6.69 10*3/uL Normal 4.00-10.60 [facility] Comment on above: Order Comment: No: D o not add to previous draw Performed By: #### 5 0608 ####[facility] [facility].[address] Erythrocyte distribution width (RBC) [Ratio] 14.1 % Normal 11.5-15.0 [facility] Comment on above: Order Comment: No: D o not add to previous draw Performed By: #### 5 0608 ####[address] Hematocrit (Bld) [Volume fraction] 29.5 % Low 39.0-50.0 [facility] Comment on above: Order Comment: No: D o not add to previous draw Performed By: #### 5 0608 ####[place] [id number] [address] Hemoglobin (Bld) [Mass/Vol] 9.3 g/dL Low 13.0-17.0 [facility] Comment on above: Order Comment: No: D o not add to previous draw Performed By: #### 5 0608 ####[address] MCH (RBC) [Entitic mass] 28.2 pg Normal 27.0-33.0 [facility] Comment on above: Order Comment: No: D o not add to previous draw Performed By: #### 5 0608 ####[facility] [facility] [place] [address], [facility] MCHC (RBC) [Mass/Vol] 31.5 g/dL Low 32.0-35.0 [facility] Comment on above: Order Comment: No: D o not add to previous draw Performed By: #### 5 0608 ####[address] [place] [address], [place] MCV (RBC) [Entitic vol] 89.4 fL Normal 82.0-98.0 [facility] Comment on above: Order Comment: No: D o not add to previous draw Performed By: #### 5 0608 ####[place] [address] [address] Nucleated RBC/100 WBC (Bld) [Ratio] 0 % Normal 0-0 [facility] Comment on above: Order Comment: No: D o not add to previous draw Performed By: #### 5 0608 ####[address] PLAT CNT 338 10*3/uL Normal 150-400 [facility] Comment on above: Order Comment: No: D o not add to previous draw Performed By: #### 5 0608 ####[address] RBC (Bld) [#/Vol] 3.30 10*6/uL Low 4.20-5.70 [facility] Comment on above: Order Comment: No: D o not add to previous draw Performed By: #### 5 0608 ####[address] WBC (Bld) [#/Vol] 6.66 10*3/uL Normal 4.00-10.60 [facility] Comment on above: Order Comment: No: D o not add to previous draw Performed By: #### 5 0608 ####[address] MAGNESIUM BLOODon 05-20-2021 Magnesium [Mass/Vol] 1.9 mg/dL Normal 1.9-2.7 [facility] Comment on above: Order Comment: No: D o not add to previous draw Performed By: #### 1 0070, 43888, 74233 ####[facility] [place] [address], [place] PHOSPHORUS BLOODon 1 Phosphate [Mass/Vol] 3.7 mg/dL Normal 2.5-5.0 [facility] Comment on above: Order Comment: No: D o not add to previous draw Performed By: #### 1 0070, 22664, 78426 ####[facility] [place] [address], [place] POC GLUCOSE LABon 05-20-2021 Glucose [Mass/Vol] 130 mg/dL High 70-100 [facility] Comment on above: Performed By: #### 8 5499 ####[facility] [place] [address], [place] Glucose [Mass/Vol] 119 mg/dL High 70-100 [facility] Comment on above: Performed By: #### 8 5499 ####[facility] [place] [address], [place] Glucose [Mass/Vol] 118 mg/dL High 70-100 [facility] Comment on above: Performed By: #### 8 5499 ####[facility] [place] [address], [place] Glucose [Mass/Vol] 118 mg/dL High 70-100 [facility] Comment on above: Performed By: #### 8 5499 ####[facility] [place] [address], [place] Glucose [Mass/Vol] 119 mg/dL High 70-100 [facility] Comment on above: Performed By: #### 8 5499 ####[facility] [place] [address], [place] PROTHROMBIN TIMEon 1 INR Coag (PPP) [Relative time] 1.09 {INR} Normal 0.91-1.16 [facility] Comment on above: Order Comment: No: D o not add to previous draw Result Comment: ACCC P RECOMMENDED INR FOR WARFARIN THERAPY CONDITION INRPROPHYLAXIS OF VENOUS THROMBOSIS 2-3(HIGH-RISK SURGERY)TREATMENT OF VENOUS THROMBOSIS 2-3TREATMENT OF PULMONARY EMBOLISM 2-3PREVENTION OF SYSTEMIC EMBOLISM: 2-3 ACUTE MYOCARDIAL INFARCTION TISSUE HEART VALVES VALVULAR HEART DISEASE ATRIAL FIBRILLATION RECURRENT SYSTEMIC EMBOLISMMECHANICAL HEART VALVE 2.5-3.5 FROM: ORAL ANTICOAGULANTS. MECHANISM OF ACTION, CLINICALEFFECTIVENESS, AND OPTIMAL THERAPEUTIC RANGE. [id number];108:231S-246S. Performed By: #### 5 6101 ####[facility] [facility] [place] [address], [facility] PT Coag (PPP) [Time] 14.1 s Normal 12.3-14.8 [facility] Comment on above: Order Comment: No: D o not add to previous draw Result Comment: ALL RESULTS MUST BE INTERPRETED WITH RESPECT TO BLOOD DRAWING ARTIFACTOR DILUTION ERROR OF ANTICOAGULANT AT THE TIME OF SAMPLING. Performed By: #### 5 6101 ####[facility] [facility] [place] [address], [facility] TYPE AND SCREENon 05-20-2021 ABO INTERPRETATION O Normal [facility] Comment on above: Performed By: #### 6 2586 ####[facility] [facility] [place] [address], [facility] RH INTERPRETATION Positive Normal [facility] Comment on above: Performed By: #### 6 2586 ####[facility] *MRSA/MSSA DNA NASALon 05-19 *MRSA/MSSA DNA NASAL Clinical Report: (D) Specimen: NASAL SWAB Collected: 05/19/2021 10:27 Status: Final Last Updated: 05/19/2021 15:02 [facility] DNA (Final) Negative MRSA DNA (Final) Negative Normal [facility] Comment on above: Performed By: #### 3 1595 ####[facility] CBC W/DIFFon 05-19-2021 ABS IMM GRANS 0.0 10*3/uL Normal 0.0-0.2 [facility] Comment on above: Order Comment: No: D o not add to previous draw Performed By: #### 5 0103 ####[facility] ABS NEUTROPHILS 4.3 10*3/uL Normal 1.6-7.6 The [facility] Comment on above: Order Comment: No: D o not add to previous draw Performed By: #### 5 0103 ####[facility] Basophils (Bld) [#/Vol] 0.0 10*3/uL Normal 0.0-0.2 [facility] Comment on above: Order Comment: No: D o not add to previous draw Performed By: #### 5 0103 ####[facility] Basophils/100 WBC (Bld) 0.5 % Normal 0.0-1.0 [facility] Comment on above: Order Comment: No: D o not add to previous draw Performed By: #### 5 0103 ####[facility] [place] [address], [place] Eosinophils (Bld) [#/Vol] 0.2 10*3/uL Normal 0.0-0.5 [facility] Comment on above: Order Comment: No: D o not add to previous draw Performed By: #### 5 0103 ####[facility] Eosinophils/100 WBC (Bld) 3.1 % Normal 0.0-6.0 [facility] Comment on above: Order Comment: No: D o not add to previous draw Performed By: #### 5 0103 ####[facility] Erythrocyte distribution width (RBC) [Ratio] 14.2 % Normal 11.5-15.0 [facility] Comment on above: Order Comment: No: D o not add to previous draw Performed By: #### 5 0103 ####[facility] Hematocrit (Bld) [Volume fraction] 29.0 % Low 39.0-50.0 [facility] Comment on above: Order Comment: No: D o not add to previous draw Performed By: #### 5 3 ####[facility] Hemoglobin (Bld) [Mass/Vol] 9.2 g/dL Low 13.0-17.0 [facility] Comment on above: Order Comment: No: D o not add to previous draw Performed By: #### 5 0103 ####[facility] [place] [address], [facility] IMMATURE GRANS 0.5 % Normal 0.0-1.0 [facility] Comment on above: Order Comment: No: D o not add to previous draw Performed By: #### 5 0103 ####[facility] Lymphocytes (Bld) [#/Vol] 1.0 10*3/uL Low 1.2-4.0 [facility] Comment on above: Order Comment: No: D o not add to previous draw Performed By: #### 5 0103 ####[facility] Lymphocytes/100 WBC (Bld) 15.9 % Low 20.0-45.0 [facility] Comment on above: Order Comment: No: D o not add to previous draw Performed By: #### 5 3 ####[address] MCH (RBC) [Entitic mass] 28.5 pg Normal 27.0-33.0 [facility] Comment on above: Order Comment: No: D o not add to previous draw Performed By: #### 5 3 ####[facility] MCHC (RBC) [Mass/Vol] 31.7 g/dL Low 32.0-35.0 [facility] Comment on above: Order Comment: No: D o not add to previous draw Performed By: #### 5 3 ####[place] [id number] [address] MCV (RBC) [Entitic vol] 89.8 fL Normal 82.0-98.0 [facility] Comment on above: Order Comment: No: D o not add to previous draw Performed By: #### 5 0103 ####[facility] [place] [address], [facility] Monocytes (Bld) [#/Vol] 0.6 10*3/uL Normal 0.1-1.0 [facility] Comment on above: Order Comment: No: D o not add to previous draw Performed By: #### 5 3 ####[facility] [place] [address], [facility] MONOS 10.2 % Normal 5.0-12.0 [facility] Comment on above: Order Comment: No: D o not add to previous draw Performed By: #### 5 0103 ####[facility] [id number], [facility] Neutrophils/100 WBC (Bld) 69.8 % Normal 40.0-72.0 [facility] Comment on above: Order Comment: No: D o not add to previous draw Performed By: #### 5 0103 ####[facility] [facility] [place] [address], [facility] Nucleated RBC/100 WBC (Bld) [Ratio] 0 % Normal 0-0 [facility] Comment on above: Order Comment: No: D o not add to previous draw Performed By: #### 5 0103 ####[facility] [facility] [place] [address], [facility] PLAT CNT 294 10*3/uL Normal 150-400 [facility] Comment on above: Order Comment: No: D o not add to previous draw Performed By: #### 5 0103 ####[facility] [facility] [place] [address], [facility] RBC (Bld) [#/Vol] 3.23 10*6/uL Low 4.20-5.70 The [facility] Comment on above: Order Comment: No: D o not add to previous draw Performed By: #### 5 0103 ####[facility] [facility].[place] [id number], [place] WBC (Bld) [#/Vol] 6.09 10*3/uL Normal 4.00-10.60 The [facility] Comment on above: Order Comment: No: D o not add to previous draw Performed By: #### 5 0103 ####[facility] [facility] [place] [address], [facility] COMP METABOLIC PANELon 05-19 Albumin [Mass/Vol] 2.8 g/dL Low 3.5-5.7 [facility] Comment on above: Order Comment: No: D o not add to previous draw Performed By: #### 4 1000, 91989, 73881 ####[facility] [place] [address], [facility] ALKALINE PHOSPH 59 IU/L Normal 34-104 The [facility] Comment on above: Order Comment: No: D o not add to previous draw Performed By: #### 4 1000, 17662, 23147 ####[facility] [facility] [place] [address], [facility] ALT [Catalytic activity/Vol] 9 U/L Normal 7-52 [facility] Comment on above: Order Comment: No: D o not add to previous draw Performed By: #### 4 1000, 81966, 00914 ####[facility] [facility] [place] [address], [facility] AST [Catalytic activity/Vol] 20 U/L Normal 13-39 [facility] Comment on above: Order Comment: No: D o not add to previous draw Performed By: #### 4 1000, 30646, 72079 ####[facility] [facility] [place] [address], [facility] Bilirubin [Mass/Vol] 0.6 mg/dL Normal 0.3-1.0 [facility] Comment on above: Order Comment: No: D o not add to previous draw Performed By: #### 4 1000, 57459, 76261 ####[facility] [facility] [place] [address], [facility] Calcium [Mass/Vol] 8.5 mg/dL Low 8.6-10.3 [facility] Comment on above: Order Comment: No: D o not add to previous draw Performed By: #### 4 1000, 27694, 55411 ####[facility] [place] [address], [place] Chloride [Moles/Vol] 98 mmol/L Normal 98-107 [facility] Comment on above: Order Comment: No: D o not add to previous draw Performed By: #### 4 1000, 97567, 77057 ####[facility] [place] [address], [place] CO2 [Moles/Vol] 31 mmol/L Normal 21-31 [facility] Comment on above: Order Comment: No: D o not add to previous draw Performed By: #### 4 1000, 42187, 05351 ####[facility] [place] [address], [place] Creatinine [Mass/Vol] 0.74 mg/dL Normal 0.70-1.30 [facility] Comment on above: Order Comment: No: D o not add to previous draw Performed By: #### 4 1000, 67139, 52399 ####[facility] [place] [address], [place] GFR/1.73 sq M.predicted among blacks MDRD (S/P/Bld) [Vol rate/Area] mL/min/{1.73_m2} Normal >60 [facility] Comment on above: Order Comment: No: D o not add to previous draw Result Comment: Calc ulation may not be valid for patients over 70 years Performed By: #### 4 1000, 92205, 62486 ####[facility] [place] [address], [place] GFR/1.73 sq M.predicted among non-blacks MDRD (S/P/Bld) [Vol rate/Area] mL/min/{1.73_m2} Normal >60 [facility] Comment on above: Order Comment: No: D o not add to previous draw Result Comment: Calc ulation may not be valid for patients over 70 years Performed By: #### 4 1000, 70742, 26197 ####[facility] [place] [address], [place] Glucose [Mass/Vol] 143 mg/dL High 70-100 [facility] Comment on above: Order Comment: No: D o not add to previous draw Performed By: #### 4 1000, 61245, 68800 ####[facility] [place] [address], [place] Potassium [Moles/Vol] 3.4 mmol/L Low 3.5-5.1 [facility] Comment on above: Order Comment: No: D o not add to previous draw Performed By: #### 4 1000, 30735, 77057 ####[facility] [place] [address], [place] Protein [Mass/Vol] 6.7 g/dL Normal 6.0-8.3 [facility] Comment on above: Order Comment: No: D o not add to previous draw Performed By: #### 4 1000, 36049, 13105 ####[facility] [place] [address], [place] Sodium [Moles/Vol] 134 mmol/L Low 136-145 [facility] Comment on above: Order Comment: No: D o not add to previous draw Performed By: #### 4 1000, 32713, 97900 ####[facility] [place] [address], [place] Urea nitrogen [Mass/Vol] 14 mg/dL Normal 7-25 [facility] Comment on above: Order Comment: No: D o not add to previous draw Performed By: #### 4 1000, 20566, 70565 ####[facility] [place] [address], [place] MAGNESIUM BLOODon 05-19-2021 Magnesium [Mass/Vol] 1.9 mg/dL Normal 1.9-2.7 [facility] Comment on above: Order Comment: No: D o not add to previous draw Performed By: #### 4 1000, 13681, 80835 ####[facility] [place] [address], [facility] PHOSPHORUS BLOODon Phosphate [Mass/Vol] 3.1 mg/dL Normal 2.5-5.0 [facility] Comment on above: Order Comment: No: D o not add to previous draw Performed By: #### 4 1000, 71230, 47036 ####[facility] [place] [address], [facility] POC GLUCOSE LABon 05-19-2021 Glucose [Mass/Vol] 124 mg/dL High 70-100 [facility] Comment on above: Performed By: #### 8 5499 ####[facility] [facility] [place] [address], [place] Glucose [Mass/Vol] 132 mg/dL High 70-100 [facility] Comment on above: Performed By: #### 8 5499 ####[facility] [facility] [place] [address], [place] Glucose [Mass/Vol] 153 mg/dL High 70-100 [facility] Comment on above: Performed By: #### 8 5499 ####[facility] [facility] [place] [address], [place] Glucose [Mass/Vol] 133 mg/dL High 70-100 [facility] Comment on above: Performed By: #### 8 5499 ####[facility] [facility] [place] [address], [place] POC SARS COV2 ANTIGEN NEGATI VEon 05-19-2021 POC SARS COV2 ANTIGEN NEG Negative Normal NEGATIVE [facility] Comment on above: Result Comment: Nega tive results from patients with symptom onset beyond seven days,should be treated presumptive and confirmation with a molecular assay,if necessary, for patient management, may be performed. Negative resultsdo not rule out SARS-CoV-2 infection and should not be used as the solebasis for treatment or patient management decisions, including infectioncontrol decisions. Negative results should be considered in the contextof a patient?s recent exposures, history and the presence of clinicalsigns and symptoms consistent with COVID-19.The [employer] COVID-19 Ag Card is a lateral flow immunoassay intended forthe qualitative detection of nucleocapsid protein antigen [id number] in direct nasal swabs from individuals within the first sevendays of symptom onset. Testing is limited to laboratories certifiedunder the Clinical Laboratory Improvement Amendments of 1988 (CLIA), 42[place]. ???263a, that meet the requirements to perform moderate, high orwaived complexity tests. This test is authorized for use at the Point ofCare (POC), i.e., in patient care settings operating under a CLIACertificate of Waiver, Certificate of Compliance, or Certificate ofAccreditation. Performed By: #### 3 1976 ####[address] VANCOMYCIN TIMEDon VANCOMYCIN TIMED 16.3 mcg/mL Normal [facility] Comment on above: Performed By: #### 3 0953 ####[place] [id number] [address] CBC W/DIFFon 05-18-2021 ABS IMM GRANS 0.0 10*3/uL Normal 0.0-0.2 [facility] Comment on above: Order Comment: No: D o not add to previous draw Performed By: #### 5 0103 ####[address] ABS NEUTROPHILS 5.1 10*3/uL Normal 1.6-7.6 The [facility] Comment on above: Order Comment: No: D o not add to previous draw Performed By: #### 5 0103 ####[address] [place] [address], [facility] Basophils (Bld) [#/Vol] 0.0 10*3/uL Normal 0.0-0.2 [facility] Comment on above: Order Comment: No: D o not add to previous draw Performed By: #### 5 0103 ####[facility] [facility] [place] [address], [facility] Basophils/100 WBC (Bld) 0.4 % Normal 0.0-1.0 [facility] Comment on above: Order Comment: No: D o not add to previous draw Performed By: #### 5 0103 ####[facility] [place] [address], [facility] Eosinophils (Bld) [#/Vol] 0.2 10*3/uL Normal 0.0-0.5 [facility] Comment on above: Order Comment: No: D o not add to previous draw Performed By: #### 5 0103 ####[facility] [place] [address], [facility] Eosinophils/100 WBC (Bld) 2.6 % Normal 0.0-6.0 [facility] Comment on above: Order Comment: No: D o not add to previous draw Performed By: #### 5 0103 ####[facility] Erythrocyte distribution width (RBC) [Ratio] 14.1 % Normal 11.5-15.0 [facility] Comment on above: Order Comment: No: D o not add to previous draw Performed By: #### 5 0103 ####[facility] [place] [address], [facility] Hematocrit (Bld) [Volume fraction] 27.5 % Low 39.0-50.0 [facility] Comment on above: Order Comment: No: D o not add to previous draw Performed By: #### 5 0103 ####[facility] Hemoglobin (Bld) [Mass/Vol] 8.6 g/dL Low 13.0-17.0 [facility] Comment on above: Order Comment: No: D o not add to previous draw Performed By: #### 5 0103 ####[facility] [place] [address], [facility] IMMATURE GRANS 0.1 % Normal 0.0-1.0 The [facility] Comment on above: Order Comment: No: D o not add to previous draw Performed By: #### 5 0103 ####[address] Lymphocytes (Bld) [#/Vol] 1.3 10*3/uL Normal 1.2-4.0 [facility] Comment on above: Order Comment: No: D o not add to previous draw Performed By: #### 5 0103 ####[facility] [place] [address] Lymphocytes/100 WBC (Bld) 18.0 % Low 20.0-45.0 [facility] Comment on above: Order Comment: No: D o not add to previous draw Performed By: #### 5 0103 ####[facility] [place] [address], [facility] MCH (RBC) [Entitic mass] 28.7 pg Normal 27.0-33.0 [facility] Comment on above: Order Comment: No: D o not add to previous draw Performed By: #### 5 0103 ####[facility] [place] [address], [facility] MCHC (RBC) [Mass/Vol] 31.3 g/dL Low 32.0-35.0 [facility] Comment on above: Order Comment: No: D o not add to previous draw Performed By: #### 5 0103 ####[facility]3000 [facility].[address] MCV (RBC) [Entitic vol] 91.7 fL Normal 82.0-98.0 [facility] Comment on above: Order Comment: No: D o not add to previous draw Performed By: #### 5 0103 ####[facility] [facility] [place] [address], [facility] Monocytes (Bld) [#/Vol] 0.7 10*3/uL Normal 0.1-1.0 [facility] Comment on above: Order Comment: No: D o not add to previous draw Performed By: #### 5 0103 ####[facility]3000 [facility].[address] MONOS 10.0 % Normal 5.0-12.0 [facility] Comment on above: Order Comment: No: D o not add to previous draw Performed By: #### 5 0103 ####[facility]3000 [facility].[address] Neutrophils/100 WBC (Bld) 68.9 % Normal 40.0-72.0 [facility] Comment on above: Order Comment: No: D o not add to previous draw Performed By: #### 5 0103 ####[facility]3000 [facility].[address] Nucleated RBC/100 WBC (Bld) [Ratio] 0 % Normal 0-0 [facility] Comment on above: Order Comment: No: D o not add to previous draw Performed By: #### 5 0103 ####[facility] [facility] [place] [address], [facility] PLAT CNT 288 10*3/uL Normal 150-400 [facility] Comment on above: Order Comment: No: D o not add to previous draw Performed By: #### 5 0103 ####[facility] RBC (Bld) [#/Vol] 3.00 10*6/uL Low 4.20-5.70 The [facility] Comment on above: Order Comment: No: D o not add to previous draw Performed By: #### 5 0103 ####[facility] [place] [address], [facility] WBC (Bld) [#/Vol] 7.40 10*3/uL Normal 4.00-10.60 The [facility] Comment on above: Order Comment: No: D o not add to previous draw Performed By: #### 5 0103 ####[facility]3000 [facility].[address] COMP METABOLIC PANELon 05-18 Albumin [Mass/Vol] 2.7 g/dL Low 3.5-5.7 [facility] Comment on above: Order Comment: No: D o not add to previous draw Performed By: #### 4 1000, 06177, 19714, 71478 ####[facility] ALKALINE PHOSPH 62 IU/L Normal 34-104 [facility] Comment on above: Order Comment: No: D o not add to previous draw Performed By: #### 4 1000, 36717, 43515, 13860 ####[facility] ALT [Catalytic activity/Vol] 11 U/L Normal 7-52 [facility] Comment on above: Order Comment: No: D o not add to previous draw Performed By: #### 4 1000, 74169, 20879, 07371 ####[facility] [place] [address], [facility] AST [Catalytic activity/Vol] 31 U/L Normal 13-39 [facility] Comment on above: Order Comment: No: D o not add to previous draw Performed By: #### 4 1000, 95051, 79368, 21951 ####[facility] [place] [address], [place] Bilirubin [Mass/Vol] 0.8 mg/dL Normal 0.3-1.0 [facility] Comment on above: Order Comment: No: D o not add to previous draw Performed By: #### 4 1000, 71735, 54245, 46403 ####[facility] [place] [address], [place] Calcium [Mass/Vol] 8.0 mg/dL Low 8.6-10.3 [facility] Comment on above: Order Comment: No: D o not add to previous draw Performed By: #### 4 1000, 30197, 97848, 67852 ####[facility] [place] [address], [place] Chloride [Moles/Vol] 98 mmol/L Normal 98-107 [facility] Comment on above: Order Comment: No: D o not add to previous draw Performed By: #### 4 1000, 60730, 12246, 78288 ####[facility] [place] [address], [facility] CO2 [Moles/Vol] 33 mmol/L High 21-31 [facility] Comment on above: Order Comment: No: D o not add to previous draw Performed By: #### 4 1000, 48822, 20521, 25608 ####[facility] [place] [address], [place] Creatinine [Mass/Vol] 0.89 mg/dL Normal 0.70-1.30 [facility] Comment on above: Order Comment: No: D o not add to previous draw Performed By: #### 4 1000, 13981, 65883, 61835 ####[facility] [id number], [place] GFR/1.73 sq M.predicted among blacks MDRD (S/P/Bld) [Vol rate/Area] mL/min/{1.73_m2} Normal >60 [facility] Comment on above: Order Comment: No: D o not add to previous draw Result Comment: Calc ulation may not be valid for patients over 70 years Performed By: #### 4 1000, 42102, 09402, 59438 ####[facility] [place] [address], [facility] GFR/1.73 sq M.predicted among non-blacks MDRD (S/P/Bld) [Vol rate/Area] mL/min/{1.73_m2} Normal >60 [facility] Comment on above: Order Comment: No: D o not add to previous draw Result Comment: Calc ulation may not be valid for patients over 70 years Performed By: #### 4 1000, 56823, 14781, 59778 ####[facility] [id number], [facility] Glucose [Mass/Vol] 108 mg/dL High 70-100 [facility] Comment on above: Order Comment: No: D o not add to previous draw Performed By: #### 4 1000, 66568, 82197, 39749 ####[facility] [place] [address], [facility] Potassium [Moles/Vol] 3.7 mmol/L Normal 3.5-5.1 [facility] Comment on above: Order Comment: No: D o not add to previous draw Performed By: #### 4 1000, 82714, 71294, 62445 ####[facility] [place] [address], [place] Protein [Mass/Vol] 6.6 g/dL Normal 6.0-8.3 [facility] Comment on above: Order Comment: No: D o not add to previous draw Performed By: #### 4 1000, 39827, 81119, 05734 ####[facility] [place] [address], [facility] Sodium [Moles/Vol] 136 mmol/L Normal 136-145 [facility] Comment on above: Order Comment: No: D o not add to previous draw Performed By: #### 4 1000, 20471, 38789, 34061 ####[facility] [place] [address], [facility] Urea nitrogen [Mass/Vol] 16 mg/dL Normal 7-25 [facility] Comment on above: Order Comment: No: D o not add to previous draw Performed By: #### 4 1000, 85816, 26962, 08756 ####[facility] [place] [address], [facility] MAGNESIUM BLOODon 05-18-2021 Magnesium [Mass/Vol] 1.9 mg/dL Normal 1.9-2.7 [facility] Comment on above: Order Comment: No: D o not add to previous draw Performed By: #### 4 1000, 68715, 08314, 68597 ####[facility] [place] [address], [facility] PHOSPHORUS BLOODon Phosphate [Mass/Vol] 4.2 mg/dL Normal 2.5-5.0 [facility] Comment on above: Order Comment: No: D o not add to previous draw Performed By: #### 4 1000, 01568, 87051, 52602 ####[facility] [place] [address], [place] POC GLUCOSE LABon 05-18-2021 Glucose [Mass/Vol] 152 mg/dL High 70-100 [facility] Comment on above: Performed By: #### 8 5499 ####[facility] [place] [address], [place] Glucose [Mass/Vol] 140 mg/dL High 70-100 [facility] Comment on above: Performed By: #### 8 6949 ####[facility] [facility] [place] [address], [facility] Glucose [Mass/Vol] 202 mg/dL High 70-100 [facility] [facility] Comment on above: Performed By: #### 8 5499 ####[facility] [facility] [place] [address], [facility] Glucose [Mass/Vol] 121 mg/dL High 70-100 [facility] Comment on above: Performed By: #### 8 5499 ####[facility] [facility] [place] [address], [facility] PORTABLE CHEST 1 VIEWon 04-25 PORTABLE CHEST 1 VIEW Normal [facility] Comment on above: Order Comment: EValu ate for Effusion VANCOMYCIN TIMEDon VANCOMYCIN TIMED 10.2 mcg/mL Normal [facility] Comment on above: Performed By: #### 4 1000, 69086, 62054, 17323 ####[facility] [place] [place] [address], [facility] CBC W/DIFFon 05-17-2021 ABS IMM GRANS 0.0 10*3/uL Normal 0.0-0.2 [facility] Comment on above: Order Comment: No: D o not add to previous draw Performed By: #### 5 0103 ####[facility] [place] [place] [address], [facility] ABS NEUTROPHILS 3.6 10*3/uL Normal 1.6-7.6 The [facility] Comment on above: Order Comment: No: D o not add to previous draw Performed By: #### 5 0103 ####[facility] [place] [place] [address], [facility] Basophils (Bld) [#/Vol] 0.1 10*3/uL Normal 0.0-0.2 [facility] Comment on above: Order Comment: No: D o not add to previous draw Performed By: #### 5 0103 ####[facility] [facility] [place] [address], [facility] Basophils/100 WBC (Bld) 0.9 % Normal 0.0-1.0 [facility] Comment on above: Order Comment: No: D o not add to previous draw Performed By: #### 5 0103 ####[facility] [facility] [place] [address], [facility] Eosinophils (Bld) [#/Vol] 0.1 10*3/uL Normal 0.0-0.5 [facility] Comment on above: Order Comment: No: D o not add to previous draw Performed By: #### 5 0103 ####[facility] [facility] [place] [address], [facility] Eosinophils/100 WBC (Bld) 0.9 % Normal 0.0-6.0 [facility] Comment on above: Order Comment: No: D o not add to previous draw Performed By: #### 5 0103 ####[facility] [facility].[address] Erythrocyte distribution width (RBC) [Ratio] 14.6 % Normal 11.5-15.0 [facility] Comment on above: Order Comment: No: D o not add to previous draw Performed By: #### 5 0103 ####[facility] [facility].[address] Hematocrit (Bld) [Volume fraction] 27.7 % Low 39.0-50.0 [facility] Comment on above: Order Comment: No: D o not add to previous draw Performed By: #### 5 0103 ####[facility] [place] [address], [facility] Hemoglobin (Bld) [Mass/Vol] 8.5 g/dL Low 13.0-17.0 [facility] Comment on above: Order Comment: No: D o not add to previous draw Performed By: #### 5 0103 ####[facility] IMMATURE GRANS 0.5 % Normal 0.0-1.0 [facility] Comment on above: Order Comment: No: D o not add to previous draw Performed By: #### 5 0103 ####[facility] [place] [address] Lymphocytes (Bld) [#/Vol] 1.4 10*3/uL Normal 1.2-4.0 [facility] Comment on above: Order Comment: No: D o not add to previous draw Performed By: #### 5 0103 ####[facility] [place] [address] Lymphocytes/100 WBC (Bld) 23.3 % Normal 20.0-45.0 [facility] Comment on above: Order Comment: No: D o not add to previous draw Performed By: #### 5 0103 ####[address] MCH (RBC) [Entitic mass] 28.4 pg Normal 27.0-33.0 [facility] Comment on above: Order Comment: No: D o not add to previous draw Performed By: #### 5 0103 ####[facility] [place] [address] MCHC (RBC) [Mass/Vol] 30.7 g/dL Low 32.0-35.0 [facility] Comment on above: Order Comment: No: D o not add to previous draw Performed By: #### 5 0103 ####[facility] [place] [address] MCV (RBC) [Entitic vol] 92.6 fL Normal 82.0-98.0 [facility] Comment on above: Order Comment: No: D o not add to previous draw Performed By: #### 5 0103 ####[facility] [place] [place] [address], [facility] Monocytes (Bld) [#/Vol] 0.7 10*3/uL Normal 0.1-1.0 [facility] Comment on above: Order Comment: No: D o not add to previous draw Performed By: #### 5 0103 ####[facility] [facility] [place] [address], [facility] MONOS 11.7 % Normal 5.0-12.0 [facility] Comment on above: Order Comment: No: D o not add to previous draw Performed By: #### 5 0103 ####[facility] [place] [address], [facility] Neutrophils/100 WBC (Bld) 62.7 % Normal 40.0-72.0 [facility] Comment on above: Order Comment: No: D o not add to previous draw Performed By: #### 5 0103 ####[facility] [facility].[address] Nucleated RBC/100 WBC (Bld) [Ratio] 0 % Normal 0-0 [facility] Comment on above: Order Comment: No: D o not add to previous draw Performed By: #### 5 0103 ####[facility] [facility] [place] [address], [facility] PLAT CNT 325 10*3/uL Normal 150-400 [facility] Comment on above: Order Comment: No: D o not add to previous draw Performed By: #### 5 0103 ####[facility] [facility].[address] RBC (Bld) [#/Vol] 2.99 10*6/uL Low 4.20-5.70 [facility] Comment on above: Order Comment: No: D o not add to previous draw Performed By: #### 5 0103 ####[facility] [place] [address], [facility] WBC (Bld) [#/Vol] 5.79 10*3/uL Normal 4.00-10.60 [facility] Comment on above: Order Comment: No: D o not add to previous draw Performed By: #### 5 0103 ####[facility] COMP METABOLIC PANELon 05-17 Albumin [Mass/Vol] 2.8 g/dL Low 3.5-5.7 [facility] Comment on above: Order Comment: No: D o not add to previous draw Performed By: #### 4 1000, 00252, 15956 ####[facility] [place] [address], [facility] ALKALINE PHOSPH 55 IU/L Normal 34-104 [facility] Comment on above: Order Comment: No: D o not add to previous draw Performed By: #### 4 1000, 11258, 23251 ####[facility] [facility].[address] ALT [Catalytic activity/Vol] 7 U/L Normal 7-52 [facility] Comment on above: Order Comment: No: D o not add to previous draw Performed By: #### 4 1000, 70065, 04491 ####[facility] [place] [address], [facility] AST [Catalytic activity/Vol] 11 U/L Low 13-39 [facility] Comment on above: Order Comment: No: D o not add to previous draw Performed By: #### 4 1000, 86355, 46480 ####[facility] [place] [address], [facility] Bilirubin [Mass/Vol] 0.6 mg/dL Normal 0.3-1.0 [facility] Comment on above: Order Comment: No: D o not add to previous draw Performed By: #### 4 1000, 68173, 84017 ####[facility] [id number], [facility] Calcium [Mass/Vol] 8.2 mg/dL Low 8.6-10.3 [facility] Comment on above: Order Comment: No: D o not add to previous draw Performed By: #### 4 1000, 40683, 35748 ####[facility] [place] [address], [place] Chloride [Moles/Vol] 102 mmol/L Normal 98-107 [facility] Comment on above: Order Comment: No: D o not add to previous draw Performed By: #### 4 1000, 06397, 24151 ####[facility] [place] [address], [place] CO2 [Moles/Vol] 31 mmol/L Normal 21-31 [facility] Comment on above: Order Comment: No: D o not add to previous draw Performed By: #### 4 1000, 49938, 33288 ####[facility] [place] [address], [facility] Creatinine [Mass/Vol] 1.19 mg/dL Normal 0.70-1.30 [facility] Comment on above: Order Comment: No: D o not add to previous draw Performed By: #### 4 1000, 73392, 36001 ####[facility] [place] [address], [place] eGFR- non- 59 ml/min/1.73sq m Abnormal >60 [facility] Comment on above: Order Comment: No: D o not add to previous draw Result Comment: Calc ulation may not be valid for patients over 70 years Performed By: #### 4 1000, 50004, 11951 ####[facility] [place] [address], [place] GFR/1.73 sq M.predicted among blacks MDRD (S/P/Bld) [Vol rate/Area] mL/min/{1.73_m2} Normal >60 [facility] Comment on above: Order Comment: No: D o not add to previous draw Result Comment: Calc ulation may not be valid for patients over 70 years Performed By: #### 4 1000, 79661, 71555 ####[facility] [place] [address], [place] Glucose [Mass/Vol] 99 mg/dL Normal 70-100 [facility] Comment on above: Order Comment: No: D o not add to previous draw Performed By: #### 4 1000, 29856, 45919 ####[facility] [place] [address], [place] Potassium [Moles/Vol] 3.7 mmol/L Normal 3.5-5.1 [facility] Comment on above: Order Comment: No: D o not add to previous draw Performed By: #### 4 1000, 45218, 23329 ####[facility] [place] [address], [place] Protein [Mass/Vol] 6.6 g/dL Normal 6.0-8.3 [facility] Comment on above: Order Comment: No: D o not add to previous draw Performed By: #### 4 1000, 50615, 53368 ####[facility] [place] [address], [place] Sodium [Moles/Vol] 138 mmol/L Normal 136-145 [facility] Comment on above: Order Comment: No: D o not add to previous draw Performed By: #### 4 1000, 95149, 59322 ####[facility] [place] [address], [place] Urea nitrogen [Mass/Vol] 16 mg/dL Normal 7-25 [facility] Comment on above: Order Comment: No: D o not add to previous draw Performed By: #### 4 1000, 43543, 69559 ####[facility] [place] [address], [place] MAGNESIUM BLOODon 05-17-2021 Magnesium [Mass/Vol] 2.0 mg/dL Normal 1.9-2.7 [facility] Comment on above: Order Comment: No: D o not add to previous draw Performed By: #### 4 1000, 79833, 60552 ####[facility] [place] [address], [place] PHOSPHORUS BLOODon Phosphate [Mass/Vol] 4.6 mg/dL Normal 2.5-5.0 [facility] Comment on above: Order Comment: No: D o not add to previous draw Performed By: #### 4 1000, 46883, 00117 ####[facility] [place] [address], [place] POC GLUCOSE LABon 05-17-2021 Glucose [Mass/Vol] 139 mg/dL High 70-100 [facility] Comment on above: Performed By: #### 8 5499 ####[facility] [place] [address], [place] Glucose [Mass/Vol] 100 mg/dL Normal 70-100 [facility] Comment on above: Performed By: #### 8 5499 ####[facility] [place] [address], [place] Glucose [Mass/Vol] 122 mg/dL High 70-100 [facility] Comment on above: Performed By: #### 8 5499 ####[facility] [place] [address], [place] Glucose [Mass/Vol] 107 mg/dL High 70-100 [facility] Comment on above: Performed By: #### 8 5499 ####[facility] PORTABLE CHEST 1 VIEWon 04-25 PORTABLE CHEST 1 VIEW Normal [facility] Comment on above: Order Comment: evalu ate for Atelectasis *ANAEROBIC CULTUREon 021 *ANAEROBIC CULTURE Clinical Report: (D) Specimen/Source: TISSUE/INTRAOP SPEC Collected: 05/16/2021 10:48 Status: Final Last Updated: 05/21/2021 08:50 (1) STERNAL TISSUE ISO (Final) No Anaerobes Isolated Day 5 Normal [facility] Comment on above: Order Comment: BRANDT AL TISSUE Performed By: #### 3 0312 ####[facility] *ANAEROBIC CULTURE Clinical Report: (D) Specimen/Source: SWAB/INTRAOP SPEC Collected: 05/16/2021 10:45 Status: Final Last Updated: 05/21/2021 08:50 (1) STERNAL WOUND ISO (Final) No Anaerobes Isolated Day 5 Normal [facility] Comment on above: Order Comment: BRANDT AL WOUND Performed By: #### 3 0312 ####[facility] *TISSUE CULTUREon 05-16-2021 *TISSUE CULTURE Normal [facility] Comment on above: Order Comment: BRANDT AL TISSUE Performed By: #### 3 0338 ####[facility] [place], [place] [id number] [place] [address] *WOUND CULTUREon 05-16-2021 *WOUND CULTURE Normal [facility] Comment on above: Order Comment: BRANDT AL WOUND Performed By: #### 3 0343 ####[facility] [place], [place] [id number] [place] [address] APTTon 05-16-2021 aPTT Coag (Bld) [Time] 32.6 s Normal 25.0-35.0 [facility] Comment on above: Order Comment: No: D o not add to previous draw Result Comment: ALL RESULTS MUST BE INTERPRETED WITH RESPECT TO BLOOD DRAWING ARTIFACTOR DILUTION ERROR OF ANTICOAGULANT AT THE TIME OF SAMPLING.THE APTT SHOULD NOT BE USED TO MONITOR UNFRACTIONATED HEPARIN THERAPY, THIS LABORATORY NO LONGER HAS AN ESTABLISHED THERAPEUTIC RANGE BASEDON THE APTT. IT IS RECOMMENDED THAT THE [facility] - HEPARIN ASSAY (ANTI-XAACTIVITY) BE USED FOR THIS PURPOSE. Performed By: #### 5 7307, 62590 ####[facility] [place] [address], [facility] BASIC METABOLIC PANELon 09-2020 Calcium [Mass/Vol] 8.5 mg/dL Low 8.6-10.3 [facility] Comment on above: Order Comment: No: D o not add to previous draw Performed By: #### 4 1000, 49355, 19877 ####[facility] [place] [address], [facility] Chloride [Moles/Vol] 101 mmol/L Normal 98-107 [facility] Comment on above: Order Comment: No: D o not add to previous draw Performed By: #### 4 1000, 18081, 12278 ####[facility] [facility] [place] [address], [facility] CO2 [Moles/Vol] 31 mmol/L Normal 21-31 [facility] Comment on above: Order Comment: No: D o not add to previous draw Performed By: #### 4 1000, 59263, 27643 ####[facility] [place] [address], [facility] Creatinine [Mass/Vol] 0.66 mg/dL Low 0.70-1.30 [facility] Comment on above: Order Comment: No: D o not add to previous draw Performed By: #### 4 1000, 66824, 66721 ####[facility] [place] [address], [facility] GFR/1.73 sq M.predicted among blacks MDRD (S/P/Bld) [Vol rate/Area] mL/min/{1.73_m2} Normal >60 [facility] Comment on above: Order Comment: No: D o not add to previous draw Result Comment: Calc ulation may not be valid for patients over 70 years Performed By: #### 4 1000, 65377, 19951 ####[facility] [place] [address], [facility] GFR/1.73 sq M.predicted among non-blacks MDRD (S/P/Bld) [Vol rate/Area] mL/min/{1.73_m2} Normal >60 [facility] Comment on above: Order Comment: No: D o not add to previous draw Result Comment: Calc ulation may not be valid for patients over 70 years Performed By: #### 4 1000, , 15309 ####[facility] [facility] [place] [address], [facility] Glucose [Mass/Vol] 117 mg/dL High 70-100 [facility] Comment on above: Order Comment: No: D o not add to previous draw Performed By: #### 4 1000, , 23625 ####[facility] [facility] [place] [address], [facility] Potassium [Moles/Vol] 4.1 mmol/L Normal 3.5-5.1 [facility] Comment on above: Order Comment: No: D o not add to previous draw Performed By: #### 4 1000, , 47903 ####[facility] [place] [address], [place] Sodium [Moles/Vol] 136 mmol/L Normal 136-145 [facility] Comment on above: Order Comment: No: D o not add to previous draw Performed By: #### 4 1000, , 40166 ####[facility] [place] [address], [place] Urea nitrogen [Mass/Vol] 11 mg/dL Normal 7-25 [facility] Comment on above: Order Comment: No: D o not add to previous draw Performed By: #### 4 1000, 20749, 08113 ####[facility] [facility].[address] CBC COMPLETE BLOOD COUNTon 0 05-16-2021 Erythrocyte distribution width (RBC) [Ratio] 14.5 % Normal 11.5-15.0 [facility] Comment on above: Order Comment: No: D o not add to previous draw Performed By: #### 5 0608 ####[facility] Hematocrit (Bld) [Volume fraction] 30.5 % Low 39.0-50.0 [facility] Comment on above: Order Comment: No: D o not add to previous draw Performed By: #### 5 0608 ####[facility] [facility].[address] Hemoglobin (Bld) [Mass/Vol] 9.5 g/dL Low 13.0-17.0 [facility] Comment on above: Order Comment: No: D o not add to previous draw Performed By: #### 5 0608 ####[facility] MCH (RBC) [Entitic mass] 28.5 pg Normal 27.0-33.0 [facility] Comment on above: Order Comment: No: D o not add to previous draw Performed By: #### 5 0608 ####[facility] [facility] [place] [address], [facility] MCHC (RBC) [Mass/Vol] 31.1 g/dL Low 32.0-35.0 [facility] Comment on above: Order Comment: No: D o not add to previous draw Performed By: #### 5 0608 ####[facility] MCV (RBC) [Entitic vol] 91.6 fL Normal 82.0-98.0 [facility] Comment on above: Order Comment: No: D o not add to previous draw Performed By: #### 5 0608 ####[facility] Nucleated RBC/100 WBC (Bld) [Ratio] 0 % Normal 0-0 [facility] Comment on above: Order Comment: No: D o not add to previous draw Performed By: #### 5 0608 ####[facility] PLAT CNT 353 10*3/uL Normal 150-400 [facility] Comment on above: Order Comment: No: D o not add to previous draw Performed By: #### 5 0608 ####[facility] RBC (Bld) [#/Vol] 3.33 10*6/uL Low 4.20-5.70 [facility] Comment on above: Order Comment: No: D o not add to previous draw Performed By: #### 5 0608 ####[facility] WBC (Bld) [#/Vol] 5.98 10*3/uL Normal 4.00-10.60 [facility] Comment on above: Order Comment: No: D o not add to previous draw Performed By: #### 5 0608 ####[facility] [place] [address] LACTATE BLOODon 05-16-2021 Lactate [Moles/Vol] 0.6 mmol/L Normal .5-2.2 [facility] Comment on above: Order Comment: No: D o not add to previous draw Performed By: #### 1 0054 ####[facility] [place] [address], [facility] Lactate [Moles/Vol] 0.8 mmol/L Normal .5-2.2 [facility] Comment on above: Order Comment: No: D o not add to previous draw Performed By: #### 1 0054 ####[facility] [id number], [facility] MAGNESIUM BLOODon 05-16-2021 Magnesium [Mass/Vol] 1.9 mg/dL Normal 1.9-2.7 [facility] Comment on above: Order Comment: No: D o not add to previous draw Performed By: #### 4 1000, 39621, 06338 ####[facility] [place] [address], [facility] OSMOLALITY BLOODon 1 Osmolality [Osmolality] 292 mosm/kg Normal 285-305 [facility] Comment on above: Order Comment: No: D o not add to previous draw Performed By: #### 3 9301, 04527 ####[facility] [place] [address], [facility] Osmolality [Osmolality] 297 mosm/kg Normal 285-305 [facility] Comment on above: Order Comment: No: D o not add to previous draw Performed By: #### 3 9301, 89803 ####[facility] [id number], [facility] PHOSPHORUS BLOODon 1 Phosphate [Mass/Vol] 4.3 mg/dL Normal 2.5-5.0 [facility] Comment on above: Order Comment: No: D o not add to previous draw Performed By: #### 4 1000, 44312, 18903 ####[facility] [id number], [place] POC GLUCOSE LABon 05-16-2021 Glucose [Mass/Vol] 121 mg/dL High 70-100 [facility] Comment on above: Performed By: #### 8 5499 ####[facility] [facility] [place] [address], [facility] Glucose [Mass/Vol] 126 mg/dL High 70-100 [facility] Comment on above: Performed By: #### 8 5499 ####[facility] [facility] [id number], [facility] Glucose [Mass/Vol] 133 mg/dL High 70-100 [facility] Comment on above: Performed By: #### 8 5499 ####[facility] [facility] [place] [address], [facility] Glucose [Mass/Vol] 131 mg/dL High 70-100 [facility] Comment on above: Performed By: #### 8 5499 ####[facility] PORTABLE CHEST 1 VIEWon 04-25 PORTABLE CHEST 1 VIEW Normal [facility] Comment on above: Order Comment: Check NG Tube Position PORTABLE CHEST 1 VIEW Normal [facility] Comment on above: Order Comment: Evalu ate Atelectasis PROTHROMBIN TIMEon INR Coag (PPP) [Relative time] 1.15 {INR} Normal 0.91-1.16 [facility] Comment on above: Order Comment: No: D o not add to previous draw Result Comment: ACCC P RECOMMENDED INR FOR WARFARIN THERAPY CONDITION INRPROPHYLAXIS OF VENOUS THROMBOSIS 2-3(HIGH-RISK SURGERY)TREATMENT OF VENOUS THROMBOSIS 2-3TREATMENT OF PULMONARY EMBOLISM 2-3PREVENTION OF SYSTEMIC EMBOLISM: 2-3 ACUTE MYOCARDIAL INFARCTION TISSUE HEART VALVES VALVULAR HEART DISEASE ATRIAL FIBRILLATION RECURRENT SYSTEMIC EMBOLISMMECHANICAL HEART VALVE 2.5-3.5 FROM: ORAL ANTICOAGULANTS. MECHANISM OF ACTION, CLINICALEFFECTIVENESS, AND OPTIMAL THERAPEUTIC RANGE. [id number]. Performed By: #### 5 7307, 68995 ####[facility] PT Coag (PPP) [Time] 14.7 s Normal 12.3-14.8 [facility] Comment on above: Order Comment: No: D o not add to previous draw Result Comment: ALL RESULTS MUST BE INTERPRETED WITH RESPECT TO BLOOD DRAWING ARTIFACTOR DILUTION ERROR OF ANTICOAGULANT AT THE TIME OF SAMPLING. Performed By: #### 5 7307, 19738 ####[facility] TRIGLYCERIDES BLOODon 2020 Triglyceride [Mass/Vol] 95 mg/dL Normal 40-149 [facility] Comment on above: Order Comment: No: D o not add to previous draw Result Comment: TRIG LYCERIDE REFERENCE RANGE:20 YEARS AND OLDER CARDIOVASCULAR RISKLESS THAN 150 mg/dl LOW [id number] TO 199 mg/dl BORDERLINE [id number] mg/dl AND GREATER HIGH RISK Performed By: #### 3 9301, [address] ####[place] [id number] [facility].[address] Triglyceride [Mass/Vol] 98 mg/dL Normal 40-149 The [facility] Comment on above: Order Comment: No: D o not add to previous draw Result Comment: TRIG LYCERIDE REFERENCE RANGE:20 YEARS AND OLDER CARDIOVASCULAR RISKLESS THAN 150 mg/dl LOW [id number] TO 199 mg/dl BORDERLINE [id number] mg/dl AND GREATER HIGH RISK Performed By: #### 3 9301, 16687 ####[facility] [facility] [place] [address], [facility] *BLOOD CULTUREon 05-15-2021 *BLOOD CULTURE Clinical Report: (D) Specimen: BLOOD CULTURE Collected: 05/15/2021 11:35 Status: Final Last Updated: 05/20/2021 14:11 (1) Prior to antibiotic administration CULT RES (Final) No Growth Day 5 Normal [facility] Comment on above: Order Comment: Prior to antibiotic administration Performed By: #### 3 0313 ####[place] [id number] [address] APTTon 05-15-2021 aPTT Coag (Bld) [Time] 30.4 s Normal 25.0-35.0 [facility] Comment on above: Result Comment: ALL RESULTS MUST BE INTERPRETED WITH RESPECT TO BLOOD DRAWING ARTIFACTOR DILUTION ERROR OF ANTICOAGULANT AT THE TIME OF SAMPLING.THE APTT SHOULD NOT BE USED TO MONITOR UNFRACTIONATED HEPARIN THERAPY, THIS LABORATORY NO LONGER HAS AN ESTABLISHED THERAPEUTIC RANGE BASEDON THE APTT. IT IS RECOMMENDED THAT THE [facility] - HEPARIN ASSAY (ANTI-XAACTIVITY) BE USED FOR THIS PURPOSE. Performed By: #### 5 7307, 50516 ####[place] [id number] ARTERIAL BLOOD GAS W/COOXon 05-15-2021 BASE EXCESS 2 mmol/L Normal -2-3 [facility] Comment on above: Order Comment: RESUL TS CHECKED AND CALLED. ACCURATELY READ BACK BY RADHIKA ED CHARGE. Performed By: #### 4 0055 ####[address] COHB 2.3 % High 0.0-1.5 [facility] Comment on above: Order Comment: RESUL TS CHECKED AND CALLED. ACCURATELY READ BACK BY RADHIKA ED CHARGE. Performed By: #### 4 0055 ####[place] [id number] DELIVERY SYSTEMS [place] Normal The [facility] Comment on above: Order Comment: RESUL TS CHECKED AND CALLED. ACCURATELY READ BACK BY RADHIKA ED CHARGE. Performed By: #### 4 0055 ####[facility] [facility].[address] HCO3 (Bld) [Moles/Vol] 29 mmol/L High 21-28 [facility] Comment on above: Order Comment: RESUL TS CHECKED AND CALLED. ACCURATELY READ BACK BY RADHIKA ED CHARGE. Performed By: #### 4 0055 ####[facility] [facility].[address] LPM 5.0 LPM Normal [facility] Comment on above: Order Comment: RESUL TS CHECKED AND CALLED. ACCURATELY READ BACK BY RADHIKA ED CHARGE. Performed By: #### 4 0055 ####[address] METHB 1.1 % Normal 0.0-1.5 [facility] Comment on above: Order Comment: RESUL TS CHECKED AND CALLED. ACCURATELY READ BACK BY RADHIKA ED CHARGE. Performed By: #### 4 0055 ####[facility] [facility].[address] MODALITY NC Normal [facility] Comment on above: Order Comment: RESUL TS CHECKED AND CALLED. ACCURATELY READ BACK BY RADHIKA ED CHARGE. Performed By: #### 4 0055 ####[address] Oxygen (Bld) [Partial pressure] 83 mm[Hg] Normal 83-108 [facility] Comment on above: Order Comment: RESUL TS CHECKED AND CALLED. ACCURATELY READ BACK BY RADHIKA ED CHARGE. Performed By: #### 4 0055 ####[address] Oxygen saturation in Blood 94.8 % Normal 94.0-97.0 [facility] Comment on above: Order Comment: RESUL TS CHECKED AND CALLED. ACCURATELY READ BACK BY RADHIKA ED CHARGE. Performed By: #### 4 0055 ####[address] PCO2 58 mmHg Critically high 35-45 The [facility] Comment on above: Order Comment: RESUL TS CHECKED AND CALLED. ACCURATELY READ BACK BY RADHIKA ED CHARGE. Performed By: #### 4 0055 ####[address] pH (Bld) 7.31 [pH] Low 7.35-7.45 [facility] Comment on above: Order Comment: RESUL TS CHECKED AND CALLED. ACCURATELY READ BACK BY RADHIKA ED CHARGE. Performed By: #### 4 0055 ####[address] THB 10.2 g/dL Low 12.0-16.3 [facility] Comment on above: Order Comment: RESUL TS CHECKED AND CALLED. ACCURATELY READ BACK BY RADHIKA ED CHARGE. Performed By: #### 4 0055 ####[address] BNP (B-TYPE NATRIURETIC PEPT MAX)on 05-15-2021 Natriuretic peptide B (Bld) [Mass/Vol] 136 pg/mL High 0-100 [facility] Comment on above: Order Comment: Yes: Add to Previous draw if able Result Comment: Give n the appropriate clinical setting a BNP result of >100 pg/mLindicates congestive heart failure. Performed By: #### 8 5123 ####[address] CBC W/DIFFon 05-15-2021 ABS IMM GRANS 0.0 10*3/uL Normal 0.0-0.2 The [facility] Comment on above: Performed By: #### 5 0103 ####[address] ABS NEUTROPHILS 5.0 10*3/uL Normal 1.6-7.6 The [facility] Comment on above: Performed By: #### 5 0103 ####[facility] [place] [address], [facility] Basophils (Bld) [#/Vol] 0.0 10*3/uL Normal 0.0-0.2 [facility] Comment on above: Performed By: #### 5 0103 ####[facility] [place] [address], [facility] Basophils/100 WBC (Bld) 0.6 % Normal 0.0-1.0 [facility] Comment on above: Performed By: #### 5 0103 ####[facility] [facility] [place] [address], [facility] Eosinophils (Bld) [#/Vol] 0.1 10*3/uL Normal 0.0-0.5 [facility] Comment on above: Performed By: #### 5 0103 ####[facility] [place] [address], [facility] Eosinophils/100 WBC (Bld) 0.7 % Normal 0.0-6.0 [facility] Comment on above: Performed By: #### 5 0103 ####[facility] [facility].[address] Erythrocyte distribution width (RBC) [Ratio] 14.5 % Normal 11.5-15.0 [facility] Comment on above: Performed By: #### 5 0103 ####[facility] [facility] [place] [address], [facility] Hematocrit (Bld) [Volume fraction] 32.5 % Low 39.0-50.0 [facility] Comment on above: Performed By: #### 5 3 ####[facility] [place] [address], [facility] Hemoglobin (Bld) [Mass/Vol] 10.3 g/dL Low 13.0-17.0 [facility] Comment on above: Performed By: #### 5 0103 ####[facility] IMMATURE GRANS 0.6 % Normal 0.0-1.0 The [facility] Comment on above: Performed By: #### 5 0103 ####[facility] Lymphocytes (Bld) [#/Vol] 1.1 10*3/uL Low 1.2-4.0 [facility] Comment on above: Performed By: #### 5 0103 ####[address] Lymphocytes/100 WBC (Bld) 15.9 % Low 20.0-45.0 [facility] Comment on above: Performed By: #### 5 0103 ####[address] MCH (RBC) [Entitic mass] 28.8 pg Normal 27.0-33.0 [facility] Comment on above: Performed By: #### 5 0103 ####[place] [id number] [address] MCHC (RBC) [Mass/Vol] 31.7 g/dL Low 32.0-35.0 [facility] Comment on above: Performed By: #### 5 0103 ####[facility] MCV (RBC) [Entitic vol] 90.8 fL Normal 82.0-98.0 [facility] Comment on above: Performed By: #### 5 3 ####[address] Monocytes (Bld) [#/Vol] 0.8 10*3/uL Normal 0.1-1.0 The [facility] Comment on above: Performed By: #### 5 0103 ####[facility] [place] [address], [facility] MONOS 11.2 % Normal 5.0-12.0 [facility] Comment on above: Performed By: #### 5 0103 ####[facility] Neutrophils/100 WBC (Bld) 71.0 % Normal 40.0-72.0 [facility] Comment on above: Performed By: #### 5 0103 ####[facility] Nucleated RBC/100 WBC (Bld) [Ratio] 0 % Normal 0-0 [facility] Comment on above: Performed By: #### 5 0103 ####[facility] PLAT CNT 376 10*3/uL Normal 150-400 [facility] Comment on above: Performed By: #### 5 0103 ####[facility] RBC (Bld) [#/Vol] 3.58 10*6/uL Low 4.20-5.70 [facility] Comment on above: Performed By: #### 5 0103 ####[facility] WBC (Bld) [#/Vol] 7.03 10*3/uL Normal 4.00-10.60 The [facility] Comment on above: Performed By: #### 5 3 ####[facility] COMP METABOLIC PANELon 05-15 Albumin [Mass/Vol] 3.2 g/dL Low 3.5-5.7 The [facility] Comment on above: Performed By: #### 4 1000, 77677, 31375, 76143 ####[facility] [place] [address], [facility] ALKALINE PHOSPH 84 IU/L Normal 34-104 [facility] Comment on above: Performed By: #### 4 1000, 79371, 94779, 34054 ####[facility] [place] [address], [facility] ALT [Catalytic activity/Vol] 11 U/L Normal 7-52 [facility] Comment on above: Performed By: #### 4 1000, 94980, 44961, 45838 ####[facility] [place] [address], [facility] AST [Catalytic activity/Vol] 12 U/L Low 13-39 [facility] Comment on above: Performed By: #### 4 1000, 86723, 73860, 66467 ####[facility] [place] [address], [facility] Bilirubin [Mass/Vol] 0.9 mg/dL Normal 0.3-1.0 [facility] Comment on above: Performed By: #### 4 1000, 11828, 27470, 11536 ####[facility] [id number], [place] Calcium [Mass/Vol] 8.3 mg/dL Low 8.6-10.3 [facility] Comment on above: Performed By: #### 4 1000, 49312, 41694, 01054 ####[facility] [place] [address], [place] Chloride [Moles/Vol] 101 mmol/L Normal 98-107 [facility] Comment on above: Performed By: #### 4 1000, 78813, 48679, 60084 ####[facility] [place] [address], [place] CO2 [Moles/Vol] 30 mmol/L Normal 21-31 The [facility] Comment on above: Performed By: #### 4 1000, 67048, 81388, 87641 ####[facility] [place] [address], [place] Creatinine [Mass/Vol] 0.92 mg/dL Normal 0.70-1.30 [facility] Comment on above: Performed By: #### 4 1000, 58940, 58376, 10951 ####[facility] [place] [address], [place] GFR/1.73 sq M.predicted among blacks MDRD (S/P/Bld) [Vol rate/Area] mL/min/{1.73_m2} Normal >60 [facility] Comment on above: Result Comment: Calc ulation may not be valid for patients over 70 years Performed By: #### 4 1000, 02427, 94804, 70112 ####[facility] [place] [address], [place] GFR/1.73 sq M.predicted among non-blacks MDRD (S/P/Bld) [Vol rate/Area] mL/min/{1.73_m2} Normal >60 [facility] Comment on above: Result Comment: Calc ulation may not be valid for patients over 70 years Performed By: #### 4 1000, 37848, 46797, 70135 ####[facility] [place] [address], [place] Glucose [Mass/Vol] 138 mg/dL High 70-100 [facility] Comment on above: Performed By: #### 4 1000, 30684, 42653, 56423 ####[facility] [place] [address], [place] Potassium [Moles/Vol] 4.1 mmol/L Normal 3.5-5.1 [facility] Comment on above: Performed By: #### 4 1000, 35494, 80273, 91675 ####[facility] [place] [address], [facility] Protein [Mass/Vol] 7.4 g/dL Normal 6.0-8.3 The [facility] Comment on above: Performed By: #### 4 1000, 17409, 54198, 47270 ####[facility] [place] [address], [place] Sodium [Moles/Vol] 136 mmol/L Normal 136-145 [facility] Comment on above: Performed By: #### 4 1000, 15141, 72870, 68881 ####[facility] [place] [address], [place] Urea nitrogen [Mass/Vol] 8 mg/dL Normal 7-25 [facility] Comment on above: Performed By: #### 4 1000, 15059, 42065, 25828 ####[facility] [place] [address], [facility] LACTATE BLOODon 05-15-2021 Lactate [Moles/Vol] 0.7 mmol/L Normal .5-2.2 The [facility] Comment on above: Order Comment: Repea t Lactate in 4 hours Performed By: #### 1 0054 ####[facility] [place] [address], [place] MAGNESIUM BLOODon 05-15-2021 Magnesium [Mass/Vol] 2.0 mg/dL Normal 1.9-2.7 [facility] Comment on above: Performed By: #### 4 1000, 12117, 21114, 82469 ####[facility] [place] [address], [place] PHOSPHORUS BLOODon Phosphate [Mass/Vol] 6.0 mg/dL High 2.5-5.0 [facility] Comment on above: Performed By: #### 4 1000, 10931, 49319, 87948 ####[facility] [facility].[address] POC GLUCOSE LABon 05-15-2021 Glucose [Mass/Vol] 225 mg/dL High 70-100 [facility] Comment on above: Performed By: #### 8 5499 ####[facility] [facility].[address] POC SARS COV2 ANTIGEN NEGATI VEon 05-15-2021 POC SARS COV2 ANTIGEN NEG Negative Normal NEGATIVE [facility] Comment on above: Result Comment: Nega tive results from patients with symptom onset beyond seven days,should be treated presumptive and confirmation with a molecular assay,if necessary, for patient management, may be performed. Negative resultsdo not rule out SARS-CoV-2 infection and should not be used as the solebasis for treatment or patient management decisions, including infectioncontrol decisions. Negative results should be considered in the contextof a patient?s recent exposures, history and the presence of clinicalsigns and symptoms consistent with COVID-19.The [employer] COVID-19 Ag Card is a lateral flow immunoassay intended forthe qualitative detection of nucleocapsid protein antigen [id number]-VqK-4 in direct nasal swabs from individuals within the first sevendays of symptom onset. Testing is limited to laboratories certifiedunder the Clinical Laboratory Improvement Amendments of 1988 (CLIA), [place] ???263a, that meet the requirements to perform moderate, high orwaived complexity tests. This test is authorized for use at the Point ofCare (POC), i.e., in patient care settings operating under a CLIACertificate of Waiver, Certificate of Compliance, or Certificate ofAccreditation. Performed By: #### 3 1977 ####[facility] [facility] [place] [address], [facility] PORTABLE CHEST 1 VIEWon 04-25 PORTABLE CHEST 1 VIEW Normal [facility] Comment on above: Order Comment: Evalu ate for Infiltrates, hypoxia, infected sternotomy site PROTHROMBIN TIMEon INR Coag (PPP) [Relative time] 1.07 {INR} Normal 0.91-1.16 [facility] Comment on above: Result Comment: ACCC P RECOMMENDED INR FOR WARFARIN THERAPY CONDITION INRPROPHYLAXIS OF VENOUS THROMBOSIS 2-3(HIGH-RISK SURGERY)TREATMENT OF VENOUS THROMBOSIS 2-3TREATMENT OF PULMONARY EMBOLISM 2-3PREVENTION OF SYSTEMIC EMBOLISM: 2-3 ACUTE MYOCARDIAL INFARCTION TISSUE HEART VALVES VALVULAR HEART DISEASE ATRIAL FIBRILLATION RECURRENT SYSTEMIC EMBOLISMMECHANICAL HEART VALVE 2.5-3.5 FROM: ORAL ANTICOAGULANTS. MECHANISM OF ACTION, CLINICALEFFECTIVENESS, AND OPTIMAL THERAPEUTIC RANGE. [id number];108:[id number]. Performed By: #### 5 7307, 26082 ####[facility] [facility] [place] [address], [facility] PT Coag (PPP) [Time] 13.9 s Normal 12.3-14.8 [facility] Comment on above: Result Comment: ALL RESULTS MUST BE INTERPRETED WITH RESPECT TO BLOOD DRAWING ARTIFACTOR DILUTION ERROR OF ANTICOAGULANT AT THE TIME OF SAMPLING. Performed By: #### 5 7307, 41756 ####[facility] [facility] [place] [address], [facility] TROPONIN-Ion 05-15-2021 Troponin I.cardiac [Mass/Vol] 0.01 ng/mL Normal 0.00-0.04 [facility] Comment on above: Result Comment: REFE RENCE RANGES: 0.00 - 0.04 ng/ml NORMAL 0.05 - 0.50 ng/ml INDETERMINATE > 0.50 ng/ml CONSISTENT WITH AN M.I. Performed By: #### 4 1000, 93378, 85852, 50666 ####[facility] [facility] [place] [address], [facility] TYPE AND SCREENon 05-15-2021 ABO INTERPRETATION O Normal The [facility] Comment on above: Performed By: #### 6 2586 ####[facility] [facility] [place] [address], [facility] RH INTERPRETATION Positive Normal [facility] Comment on above: Performed By: #### 6 2586 ####[facility] [facility] [place] [address], [facility] POC GLUCOSE LABon 04-15-2021 Glucose [Mass/Vol] 143 mg/dL High 70-100 [facility] Comment on above: Performed By: #### 8 5499 ####[facility] [facility] [place] [address], [facility] Glucose [Mass/Vol] 241 mg/dL High 70-100 [facility] Comment on above: Performed By: #### 8 5499 ####[facility] [facility] [place] [address], [facility] Glucose [Mass/Vol] 121 mg/dL High 70-100 [facility] Comment on above: Performed By: #### 8 5499 ####[facility] [facility] [place] [address], [facility] POC SARS COV2 ANTIGEN NEGATI VEon 04-15-2021 POC SARS COV2 ANTIGEN NEG Negative Normal NEGATIVE [facility] Comment on above: Result Comment: Nega tive results from patients with symptom onset beyond seven days,should be treated presumptive and confirmation with a molecular assay,if necessary, for patient management, may be performed. Negative resultsdo not rule out SARS-CoV-2 infection and should not be used as the solebasis for treatment or patient management decisions, including infectioncontrol decisions. Negative results should be considered in the contextof a patient?s recent exposures, history and the presence of clinicalsigns and symptoms consistent with COVID-19.The [employer] COVID-19 Ag Card is a lateral flow immunoassay intended forthe qualitative detection of nucleocapsid protein antigen bzsgPAJF-SxJ-9 in direct nasal swabs from individuals within the first sevendays of symptom onset. Testing is limited to laboratories certifiedunder the Clinical Laboratory Improvement Amendments of 1988 (CLIA), 42U.S.C. ???263a, that meet the requirements to perform moderate, high orwaived complexity tests. This test is authorized for use at the Point ofCare (POC), i.e., in patient care settings operating under a CLIACertificate of Waiver, Certificate of Compliance, or Certificate ofAccreditation. Performed By: #### 3 1977 ####[address] BASIC METABOLIC PANELon 08-2 Calcium [Mass/Vol] 8.7 mg/dL Normal 8.6-10.3 [facility] Comment on above: Order Comment: No: D o not add to previous draw Performed By: #### 0 0071, 16058 ####[place] [address] [facility] [place] [address], [facility] Chloride [Moles/Vol] 95 mmol/L Low 98-107 [facility] Comment on above: Order Comment: No: D o not add to previous draw Performed By: #### 0 0071, 40135 ####[place] [address] [facility] [place] [address], [facility] CO2 [Moles/Vol] 27 mmol/L Normal 21-31 The [facility] Comment on above: Order Comment: No: D o not add to previous draw Performed By: #### 0 0071, 63748 ####[place] [address] [place] [address], [facility] Creatinine [Mass/Vol] 0.80 mg/dL Normal 0.70-1.30 [facility] Comment on above: Order Comment: No: D o not add to previous draw Performed By: #### 0 0071, 23924 ####[facility] [place] [address], [facility] GFR/1.73 sq M.predicted among blacks MDRD (S/P/Bld) [Vol rate/Area] mL/min/{1.73_m2} Normal >60 [facility] Comment on above: Order Comment: No: D o not add to previous draw Result Comment: Calc ulation may not be valid for patients over 70 years Performed By: #### 0 0071, 14759 ####[facility] [place] [address], [facility] GFR/1.73 sq M.predicted among non-blacks MDRD (S/P/Bld) [Vol rate/Area] mL/min/{1.73_m2} Normal >60 [facility] Comment on above: Order Comment: No: D o not add to previous draw Result Comment: Calc ulation may not be valid for patients over 70 years Performed By: #### 0 0071, 64087 ####[facility] [facility] [place] [address], [facility] Glucose [Mass/Vol] 108 mg/dL High 70-100 [facility] Comment on above: Order Comment: No: D o not add to previous draw Performed By: #### 0 0071, 14674 ####[facility] [facility] [place] [address], [place] Potassium [Moles/Vol] 3.6 mmol/L Normal 3.5-5.1 [facility] Comment on above: Order Comment: No: D o not add to previous draw Performed By: #### 0 0071, 35047 ####[facility] [place] [address], [place] Sodium [Moles/Vol] 132 mmol/L Low 136-145 [facility] Comment on above: Order Comment: No: D o not add to previous draw Performed By: #### 0 0071, 37038 ####[facility] [facility].[address] Urea nitrogen [Mass/Vol] 38 mg/dL High 7-25 [facility] Comment on above: Order Comment: No: D o not add to previous draw Performed By: #### 0 0071, 26265 ####[facility] CBC COMPLETE BLOOD COUNTon 0 04-14-2021 Erythrocyte distribution width (RBC) [Ratio] 14.1 % Normal 11.5-15.0 [facility] Comment on above: Order Comment: No: D o not add to previous draw Performed By: #### 5 0608 ####[place] [address] [address] Hematocrit (Bld) [Volume fraction] 33.5 % Low 39.0-50.0 [facility] Comment on above: Order Comment: No: D o not add to previous draw Performed By: #### 5 0608 ####[place] [address] [address] Hemoglobin (Bld) [Mass/Vol] 11.3 g/dL Low 13.0-17.0 [facility] Comment on above: Order Comment: No: D o not add to previous draw Performed By: #### 5 0608 ####[facility] [facility] [place] [address], [facility] MCH (RBC) [Entitic mass] 30.2 pg Normal 27.0-33.0 [facility] Comment on above: Order Comment: No: D o not add to previous draw Performed By: #### 5 0608 ####[facility] [facility] [place] [address], [facility] MCHC (RBC) [Mass/Vol] 33.7 g/dL Normal 32.0-35.0 [facility] Comment on above: Order Comment: No: D o not add to previous draw Performed By: #### 5 0608 ####[facility] [facility] [place] [address], [facility] MCV (RBC) [Entitic vol] 89.6 fL Normal 82.0-98.0 [facility] Comment on above: Order Comment: No: D o not add to previous draw Performed By: #### 5 0608 ####[facility] [facility].[address] Nucleated RBC/100 WBC (Bld) [Ratio] 0 % Normal 0-0 [facility] Comment on above: Order Comment: No: D o not add to previous draw Performed By: #### 5 0608 ####[facility] [facility] [place] [address], [facility] PLAT CNT 314 10*3/uL Normal 150-400 [facility] Comment on above: Order Comment: No: D o not add to previous draw Performed By: #### 5 0608 ####[facility] [facility] [place] [address], [facility] RBC (Bld) [#/Vol] 3.74 10*6/uL Low 4.20-5.70 The [facility] Comment on above: Order Comment: No: D o not add to previous draw Performed By: #### 5 0608 ####[facility] [facility] [place] [address], [facility] WBC (Bld) [#/Vol] 10.84 10*3/uL High 4.00-10.60 [facility] Comment on above: Order Comment: No: D o not add to previous draw Performed By: #### 5 0608 ####[facility] [place] [address], [facility] MAGNESIUM BLOODon 04-14-2021 Magnesium [Mass/Vol] 1.9 mg/dL Normal 1.9-2.7 [facility] Comment on above: Order Comment: No: D o not add to previous draw Performed By: #### 0 0071, 61765 ####[facility] [place] [address], [place] POC GLUCOSE LABon 04-14-2021 Glucose [Mass/Vol] 168 mg/dL High 70-100 [facility] Comment on above: Performed By: #### 8 5499 ####[facility] [place] [address], [place] Glucose [Mass/Vol] 133 mg/dL High 70-100 [facility] Comment on above: Performed By: #### 8 5499 ####[facility] [place] [address], [place] Glucose [Mass/Vol] 167 mg/dL High 70-100 [facility] Comment on above: Performed By: #### 8 5499 ####[facility] [place] [address], [place] Glucose [Mass/Vol] 146 mg/dL High 70-100 [facility] Comment on above: Performed By: #### 8 5499 ####[facility] [place] [address], [place] Glucose [Mass/Vol] 152 mg/dL High 70-100 [facility] Comment on above: Performed By: #### 8 5499 ####[facility] [place] [address], [place] PORTABLE CHEST 1 VIEWon 03-25 PORTABLE CHEST 1 VIEW Normal [facility] Comment on above: Order Comment: evalu ate Atelectasis BASIC METABOLIC PANELon 03-25 Calcium [Mass/Vol] 9.1 mg/dL Normal 8.6-10.3 [facility] Comment on above: Order Comment: No: D o not add to previous draw Performed By: #### 1 0, 39469 ####[facility] [place] [address], [facility] Chloride [Moles/Vol] 94 mmol/L Low 98-107 [facility] Comment on above: Order Comment: No: D o not add to previous draw Performed By: #### 1 0, 09806 ####[facility] [place] [address], [facility] CO2 [Moles/Vol] 27 mmol/L Normal 21-31 [facility] Comment on above: Order Comment: No: D o not add to previous draw Performed By: #### 1 69, 39961 ####[facility] [facility] [place] [address], [facility] Creatinine [Mass/Vol] 0.87 mg/dL Normal 0.70-1.30 [facility] Comment on above: Order Comment: No: D o not add to previous draw Performed By: #### 1 69, 30078 ####[facility] [facility] [place] [address], [facility] GFR/1.73 sq M.predicted among blacks MDRD (S/P/Bld) [Vol rate/Area] mL/min/{1.73_m2} Normal >60 [facility] Comment on above: Order Comment: No: D o not add to previous draw Result Comment: Calc ulation may not be valid for patients over 70 years Performed By: #### 1 69, 14764 ####[facility] [place] [address], [facility] GFR/1.73 sq M.predicted among non-blacks MDRD (S/P/Bld) [Vol rate/Area] mL/min/{1.73_m2} Normal >60 [facility] Comment on above: Order Comment: No: D o not add to previous draw Result Comment: Calc ulation may not be valid for patients over 70 years Performed By: #### 1 69, 03565 ####[facility] [facility] [place] [address], [facility] Glucose [Mass/Vol] 125 mg/dL High 70-100 [facility] Comment on above: Order Comment: No: D o not add to previous draw Performed By: #### 1 69, 34534 ####[facility] [place] [address], [facility] Potassium [Moles/Vol] 3.2 mmol/L Low 3.5-5.1 [facility] Comment on above: Order Comment: No: D o not add to previous draw Performed By: #### 1 69, 84698 ####[place] [address] [facility] [place] [address], [facility] Sodium [Moles/Vol] 132 mmol/L Low 136-145 [facility] Comment on above: Order Comment: No: D o not add to previous draw Performed By: #### 1 69, 72576 ####[place] [address] [facility] [place] [address], [facility] Urea nitrogen [Mass/Vol] 27 mg/dL High 7-25 [facility] Comment on above: Order Comment: No: D o not add to previous draw Performed By: #### 1 69, 65926 ####[facility] [facility].[address] CBC COMPLETE BLOOD COUNTon 0 8- Erythrocyte distribution width (RBC) [Ratio] 14.2 % Normal 11.5-15.0 [facility] Comment on above: Order Comment: No: D o not add to previous draw Performed By: #### 5 0608 ####[facility] [facility] [place] [address], [facility] Hematocrit (Bld) [Volume fraction] 35.2 % Low 39.0-50.0 [facility] Comment on above: Order Comment: No: D o not add to previous draw Performed By: #### 5 0608 ####[facility] [facility].[address] Hemoglobin (Bld) [Mass/Vol] 11.9 g/dL Low 13.0-17.0 [facility] Comment on above: Order Comment: No: D o not add to previous draw Performed By: #### 5 0608 ####[facility] [facility].[address] MCH (RBC) [Entitic mass] 30.6 pg Normal 27.0-33.0 [facility] Comment on above: Order Comment: No: D o not add to previous draw Performed By: #### 5 0608 ####[facility] [facility].[address] MCHC (RBC) [Mass/Vol] 33.8 g/dL Normal 32.0-35.0 [facility] Comment on above: Order Comment: No: D o not add to previous draw Performed By: #### 5 0608 ####[facility] [facility].[address] MCV (RBC) [Entitic vol] 90.5 fL Normal 82.0-98.0 [facility] Comment on above: Order Comment: No: D o not add to previous draw Performed By: #### 5 0608 ####[facility] [facility].[address] Nucleated RBC/100 WBC (Bld) [Ratio] 0 % Normal 0-0 [facility] Comment on above: Order Comment: No: D o not add to previous draw Performed By: #### 5 0608 ####[facility] [facility].[address] PLAT CNT 285 10*3/uL Normal 150-400 [facility] Comment on above: Order Comment: No: D o not add to previous draw Performed By: #### 5 0608 ####[facility] [place] [address], [facility] RBC (Bld) [#/Vol] 3.89 10*6/uL Low 4.20-5.70 [facility] Comment on above: Order Comment: No: D o not add to previous draw Performed By: #### 5 0608 ####[facility] [place] [address], [place] WBC (Bld) [#/Vol] 9.92 10*3/uL Normal 4.00-10.60 [facility] Comment on above: Order Comment: No: D o not add to previous draw Performed By: #### 5 0608 ####[facility] [facility] [place] [address], [facility] MAGNESIUM BLOODon 04-13-2021 Magnesium [Mass/Vol] 1.9 mg/dL Normal 1.9-2.7 [facility] Comment on above: Order Comment: No: D o not add to previous draw Performed By: #### 1 0070, 15503 ####[facility] [place] [address], [facility] POC GLUCOSE LABon 04-13-2021 Glucose [Mass/Vol] 106 mg/dL High 70-100 [facility] Comment on above: Performed By: #### 8 5499 ####[facility] [place] [address], [place] Glucose [Mass/Vol] 185 mg/dL High 70-100 [facility] Comment on above: Performed By: #### 8 5499 ####[facility] [place] [address], [place] Glucose [Mass/Vol] 136 mg/dL High 70-100 [facility] Comment on above: Performed By: #### 8 5499 ####[facility] [place] [address], [facility] PORTABLE CHEST 1 VIEWon 03-25 PORTABLE CHEST 1 VIEW Normal [facility] Comment on above: Order Comment: evalu ate for Atelectasis BASIC METABOLIC PANELon 03-25 Calcium [Mass/Vol] 8.3 mg/dL Low 8.6-10.3 [facility] Comment on above: Order Comment: No: D o not add to previous draw Performed By: #### 1 0, 39466 ####[facility] [facility] [place] [address], [facility] Chloride [Moles/Vol] 102 mmol/L Normal 98-107 [facility] Comment on above: Order Comment: No: D o not add to previous draw Performed By: #### 1 69, 50551 ####[facility] [place] [address], [facility] CO2 [Moles/Vol] 25 mmol/L Normal 21-31 [facility] Comment on above: Order Comment: No: D o not add to previous draw Performed By: #### 1 0, 69764 ####[facility] [place] [address], [facility] Creatinine [Mass/Vol] 0.67 mg/dL Low 0.70-1.30 [facility] Comment on above: Order Comment: No: D o not add to previous draw Performed By: #### 1 0, 27019 ####[facility] [place] [address], [facility] GFR/1.73 sq M.predicted among blacks MDRD (S/P/Bld) [Vol rate/Area] mL/min/{1.73_m2} Normal >60 [facility] Comment on above: Order Comment: No: D o not add to previous draw Result Comment: Calc ulation may not be valid for patients over 70 years Performed By: #### 1 69, 67052 ####[facility] [place] [address], [facility] GFR/1.73 sq M.predicted among non-blacks MDRD (S/P/Bld) [Vol rate/Area] mL/min/{1.73_m2} Normal >60 [facility] Comment on above: Order Comment: No: D o not add to previous draw Result Comment: Calc ulation may not be valid for patients over 70 years Performed By: #### 1 69, 07132 ####[facility] [facility] [place] [address], [facility] Glucose [Mass/Vol] 116 mg/dL High 70-100 [facility] Comment on above: Order Comment: No: D o not add to previous draw Performed By: #### 1 69, 67350 ####[facility] [facility] [place] [address], [place] Potassium [Moles/Vol] 4.0 mmol/L Normal 3.5-5.1 [facility] Comment on above: Order Comment: No: D o not add to previous draw Performed By: #### 1 69, 41171 ####[facility] [place] [address], [place] Sodium [Moles/Vol] 134 mmol/L Low 136-145 [facility] Comment on above: Order Comment: No: D o not add to previous draw Performed By: #### 1 69, 63403 ####[facility] [place] [address], [place] Urea nitrogen [Mass/Vol] 22 mg/dL Normal 7-25 [facility] Comment on above: Order Comment: No: D o not add to previous draw Performed By: #### 1 69, 69890 ####[facility] CBC COMPLETE BLOOD COUNTon 0 - Erythrocyte distribution width (RBC) [Ratio] 14.6 % Normal 11.5-15.0 [facility] Comment on above: Order Comment: No: D o not add to previous draw Performed By: #### 5 0608 ####[facility] Hematocrit (Bld) [Volume fraction] 33.1 % Low 39.0-50.0 [facility] Comment on above: Order Comment: No: D o not add to previous draw Performed By: #### 5 0608 ####[place] [address] Hemoglobin (Bld) [Mass/Vol] 10.6 g/dL Low 13.0-17.0 [facility] Comment on above: Order Comment: No: D o not add to previous draw Performed By: #### 5 0608 ####[facility] MCH (RBC) [Entitic mass] 30.0 pg Normal 27.0-33.0 [facility] Comment on above: Order Comment: No: D o not add to previous draw Performed By: #### 5 0608 ####[facility] MCHC (RBC) [Mass/Vol] 32.0 g/dL Normal 32.0-35.0 [facility] Comment on above: Order Comment: No: D o not add to previous draw Performed By: #### 5 0608 ####[facility] MCV (RBC) [Entitic vol] 93.8 fL Normal 82.0-98.0 [facility] Comment on above: Order Comment: No: D o not add to previous draw Performed By: #### 5 0608 ####[facility] [facility].[address] Nucleated RBC/100 WBC (Bld) [Ratio] 0 % Normal 0-0 [facility] Comment on above: Order Comment: No: D o not add to previous draw Performed By: #### 5 0608 ####[facility] [facility] [place] [address], [facility] PLAT CNT 213 10*3/uL Normal 150-400 [facility] Comment on above: Order Comment: No: D o not add to previous draw Performed By: #### 5 0608 ####[place] [address] [facility].[address] RBC (Bld) [#/Vol] 3.53 10*6/uL Low 4.20-5.70 [facility] Comment on above: Order Comment: No: D o not add to previous draw Performed By: #### 5 0608 ####[facility] [facility].[address] WBC (Bld) [#/Vol] 7.64 10*3/uL Normal 4.00-10.60 [facility] Comment on above: Order Comment: No: D o not add to previous draw Performed By: #### 5 0608 ####[facility] [facility].[address] MAGNESIUM BLOODon 04-12-2021 Magnesium [Mass/Vol] 1.9 mg/dL Normal 1.9-2.7 [facility] Comment on above: Order Comment: No: D o not add to previous draw Performed By: #### 1 8880, 12860 ####[facility] [facility].[address] POC GLUCOSE LABon 04-12-2021 Glucose [Mass/Vol] 126 mg/dL High 70-100 [facility] Comment on above: Performed By: #### 8 5499 ####[facility] [facility] [place] [address], [facility] Glucose [Mass/Vol] 131 mg/dL High 70-100 [facility] Comment on above: Performed By: #### 8 5499 ####[facility] [facility] [place] [address], [facility] Glucose [Mass/Vol] 167 mg/dL High 70-100 [facility] Comment on above: Performed By: #### 8 5499 ####[facility] [facility] [place] [address], [facility] POC SARS COV2 ANTIGEN NEGATI VEon 04-12-2021 POC SARS COV2 ANTIGEN NEG Negative Normal NEGATIVE [facility] Comment on above: Result Comment: Nega tive results from patients with symptom onset beyond seven days,should be treated presumptive and confirmation with a molecular assay,if necessary, for patient management, may be performed. Negative resultsdo not rule out SARS-CoV-2 infection and should not be used as the solebasis for treatment or patient management decisions, including infectioncontrol decisions. Negative results should be considered in the contextof a patient?s recent exposures, history and the presence of clinicalsigns and symptoms consistent with COVID-19.The [employer] COVID-19 Ag Card is a lateral flow immunoassay intended forthe qualitative detection of nucleocapsid protein antigen [id number] in direct nasal swabs from individuals within the first sevendays of symptom onset. Testing is limited to laboratories certifiedunder the Clinical Laboratory Improvement Amendments of 1988 (CLIA), [place] ???263a, that meet the requirements to perform moderate, high orwaived complexity tests. This test is authorized for use at the Point ofCare (POC), i.e., in patient care settings operating under a CLIACertificate of Waiver, Certificate of Compliance, or Certificate ofAccreditation. Performed By: #### 3 1977 ####[facility] [facility] [place] [address], [facility] POC SARS COV2 ANTIGEN NEG Negative Normal NEGATIVE [facility] Comment on above: Result Comment: Nega tive results from patients with symptom onset beyond seven days,should be treated presumptive and confirmation with a molecular assay,if necessary, for patient management, may be performed. Negative resultsdo not rule out SARS-CoV-2 infection and should not be used as the solebasis for treatment or patient management decisions, including infectioncontrol decisions. Negative results should be considered in the contextof a patient?s recent exposures, history and the presence of clinicalsigns and symptoms consistent with COVID-19.The [employer] COVID-19 Ag Card is a lateral flow immunoassay intended forthe qualitative detection of nucleocapsid protein antigen cedwUXXD-[id number]-4 in direct nasal swabs from individuals within the first sevendays of symptom onset. Testing is limited to laboratories certifiedunder the Clinical Laboratory Improvement Amendments of 1988 (CLIA), [place] ???263a, that meet the requirements to perform moderate, high orwaived complexity tests. This test is authorized for use at the Point ofCare (POC), i.e., in patient care settings operating under a CLIACertificate of Waiver, Certificate of Compliance, or Certificate ofAccreditation. Performed By: #### 3 1977 ####[facility] PORTABLE CHEST 1 VIEWon 03-25 PORTABLE CHEST 1 VIEW Normal [facility] Comment on above: Order Comment: evalu ate for Atelectasis BASIC METABOLIC PANELon 03-24 Calcium [Mass/Vol] 7.9 mg/dL Low 8.6-10.3 [facility] Comment on above: Order Comment: No: D o not add to previous draw Performed By: #### 4 999, 72101, 12683 ####[facility] [facility].[address] Chloride [Moles/Vol] 100 mmol/L Normal 98-107 [facility] Comment on above: Order Comment: No: D o not add to previous draw Performed By: #### 4 999, 98020, 00765 ####[facility] [place] [address], [facility] CO2 [Moles/Vol] 27 mmol/L Normal 21-31 [facility] Comment on above: Order Comment: No: D o not add to previous draw Performed By: #### 4 1000, 63241, 33622 ####[facility] [facility] [place] [address], [facility] Creatinine [Mass/Vol] 0.80 mg/dL Normal 0.70-1.30 [facility] Comment on above: Order Comment: No: D o not add to previous draw Performed By: #### 4 1000, 19229, 95546 ####[facility] [facility] [place] [address], [facility] GFR/1.73 sq M.predicted among blacks MDRD (S/P/Bld) [Vol rate/Area] mL/min/{1.73_m2} Normal >60 [facility] Comment on above: Order Comment: No: D o not add to previous draw Result Comment: Calc ulation may not be valid for patients over 70 years Performed By: #### 4 999, 51774, 25035 ####[facility] [facility] [place] [address], [facility] GFR/1.73 sq M.predicted among non-blacks MDRD (S/P/Bld) [Vol rate/Area] mL/min/{1.73_m2} Normal >60 [facility] Comment on above: Order Comment: No: D o not add to previous draw Result Comment: Calc ulation may not be valid for patients over 70 years Performed By: #### 4 1000, 60329, 95988 ####[facility] [facility] [place] [address], [facility] Glucose [Mass/Vol] 135 mg/dL High 70-100 [facility] Comment on above: Order Comment: No: D o not add to previous draw Performed By: #### 4 1000, 73480, 98775 ####[facility] [place] [address], [facility] Potassium [Moles/Vol] 3.4 mmol/L Low 3.5-5.1 [facility] Comment on above: Order Comment: No: D o not add to previous draw Performed By: #### 4 1000, 57466, 82972 ####[facility] [place] [address], [facility] Sodium [Moles/Vol] 134 mmol/L Low 136-145 [facility] Comment on above: Order Comment: No: D o not add to previous draw Performed By: #### 4 999, 43503, 37588 ####[facility] [place] [address], [facility] Urea nitrogen [Mass/Vol] 21 mg/dL Normal 7-25 [facility] Comment on above: Order Comment: No: D o not add to previous draw Performed By: #### 4 999, 46481, 04778 ####[facility] CBC COMPLETE BLOOD COUNTon 0 - Erythrocyte distribution width (RBC) [Ratio] 15.0 % Normal 11.5-15.0 [facility] Comment on above: Order Comment: No: D o not add to previous drawNurse draw Performed By: #### 5 0608 ####[facility] [place] [address], [facility] Hematocrit (Bld) [Volume fraction] 32.0 % Low 39.0-50.0 [facility] Comment on above: Order Comment: No: D o not add to previous drawNurse draw Performed By: #### 5 0608 ####[facility] [place] [address], [facility] Hemoglobin (Bld) [Mass/Vol] 10.6 g/dL Low 13.0-17.0 [facility] Comment on above: Order Comment: No: D o not add to previous drawNurse draw Performed By: #### 5 0608 ####[facility] [facility].[address] MCH (RBC) [Entitic mass] 30.5 pg Normal 27.0-33.0 [facility] Comment on above: Order Comment: No: D o not add to previous drawNurse draw Performed By: #### 5 0608 ####[facility] MCHC (RBC) [Mass/Vol] 33.1 g/dL Normal 32.0-35.0 [facility] Comment on above: Order Comment: No: D o not add to previous drawNurse draw Performed By: #### 5 0608 ####[address] MCV (RBC) [Entitic vol] 92.2 fL Normal 82.0-98.0 [facility] Comment on above: Order Comment: No: D o not add to previous drawNurse draw Performed By: #### 5 0608 ####[place] [address] Nucleated RBC/100 WBC (Bld) [Ratio] 0 % Normal 0-0 [facility] Comment on above: Order Comment: No: D o not add to previous drawNurse draw Performed By: #### 5 0608 ####[address] PLAT CNT 182 10*3/uL Normal 150-400 [facility] Comment on above: Order Comment: No: D o not add to previous drawNurse draw Performed By: #### 5 0608 ####[address] RBC (Bld) [#/Vol] 3.47 10*6/uL Low 4.20-5.70 [facility] Comment on above: Order Comment: No: D o not add to previous drawNurse draw Performed By: #### 5 0608 ####[facility] [place] [address], [facility] WBC (Bld) [#/Vol] 9.87 10*3/uL Normal 4.00-10.60 [facility] Comment on above: Order Comment: No: D o not add to previous drawNurse draw Performed By: #### 5 0608 ####[facility] [place] [address], [facility] MAGNESIUM BLOODon 04-11-2021 Magnesium [Mass/Vol] 2.1 mg/dL Normal 1.9-2.7 [facility] Comment on above: Order Comment: No: D o not add to previous draw Performed By: #### 4 1000, 58805, 42820 ####[facility] [place] [address], [facility] PHOSPHORUS BLOODon Phosphate [Mass/Vol] 3.7 mg/dL Normal 2.5-5.0 [facility] Comment on above: Order Comment: No: D o not add to previous draw Performed By: #### 4 1000, 79458, 69528 ####[facility] [place] [address], [facility] POC GLUCOSE LABon 04-11-2021 Glucose [Mass/Vol] 137 mg/dL High 70-100 [facility] Comment on above: Performed By: #### 8 5499 ####[facility] [place] [address], [place] Glucose [Mass/Vol] 182 mg/dL High 70-100 The [facility] Comment on above: Performed By: #### 8 5499 ####[facility] [place] [address], [place] Glucose [Mass/Vol] 171 mg/dL High 70-100 [facility] Comment on above: Performed By: #### 8 5499 ####[facility] [facility] [place] [address], [facility] Glucose [Mass/Vol] 142 mg/dL High 70-100 [facility] Comment on above: Performed By: #### 8 5499 ####[facility] [facility] [place] [address], [facility] PORTABLE CHEST 1 VIEWon 03-24 PORTABLE CHEST 1 VIEW Normal [facility] Comment on above: Order Comment: Evalu ate for Pneumothorax PORTABLE CHEST 1 VIEW Normal [facility] Comment on above: Order Comment: evalu ate for Pneumothorax BASIC METABOLIC PANELon 03-24 Calcium [Mass/Vol] 8.2 mg/dL Low 8.6-10.3 [facility] Comment on above: Order Comment: No: D o not add to previous drawNurse draw rn barbara Performed By: #### 4 999, 96498, 72517 ####[facility] [place] [address], [facility] Chloride [Moles/Vol] 104 mmol/L Normal 98-107 [facility] Comment on above: Order Comment: No: D o not add to previous drawNurse draw rn barbara Performed By: #### 4 999, 74429, 85725 ####[facility] [facility] [place] [address], [facility] CO2 [Moles/Vol] 27 mmol/L Normal 21-31 [facility] Comment on above: Order Comment: No: D o not add to previous drawNurse draw rn barbara Performed By: #### 4 999, 47611, 66020 ####[facility] [place] [place] [address], [facility] Creatinine [Mass/Vol] 0.76 mg/dL Normal 0.70-1.30 [facility] Comment on above: Order Comment: No: D o not add to previous drawNurse draw rn barbara Performed By: #### 4 1000, 88147, 53568 ####[facility] [facility] [place] [address], [facility] GFR/1.73 sq M.predicted among blacks MDRD (S/P/Bld) [Vol rate/Area] mL/min/{1.73_m2} Normal >60 [facility] Comment on above: Order Comment: No: D o not add to previous drawNurse draw rn barbara Result Comment: Calc ulation may not be valid for patients over 70 years Performed By: #### 4 1000, 45337, 86689 ####[facility] [facility].[place] [id number], [facility] GFR/1.73 sq M.predicted among non-blacks MDRD (S/P/Bld) [Vol rate/Area] mL/min/{1.73_m2} Normal >60 [facility] Comment on above: Order Comment: No: D o not add to previous drawNurse draw rn barbara Result Comment: Calc ulation may not be valid for patients over 70 years Performed By: #### 4 999, 87462, 11542 ####[facility] [facility] [place] [address], [facility] Glucose [Mass/Vol] 109 mg/dL High 70-100 [facility] Comment on above: Order Comment: No: D o not add to previous drawNurse draw rn barbara Performed By: #### 4 1000, 00188, 96688 ####[facility] [facility] [place] [address], [place] Potassium [Moles/Vol] 4.0 mmol/L Normal 3.5-5.1 [facility] Comment on above: Order Comment: No: D o not add to previous drawNurse draw rn barbara Performed By: #### 4 1000, 95756, 58522 ####[facility] [facility] [id number], [place] Sodium [Moles/Vol] 135 mmol/L Low 136-145 [facility] Comment on above: Order Comment: No: D o not add to previous drawNurse draw rn barbara Performed By: #### 4 1000, 23328, 19022 ####[facility] Urea nitrogen [Mass/Vol] 15 mg/dL Normal 7-25 [facility] Comment on above: Order Comment: No: D o not add to previous drawNurse draw rn barbara Performed By: #### 4 1000, 35456, 70330 ####[facility] CBC COMPLETE BLOOD COUNTon 0 - Erythrocyte distribution width (RBC) [Ratio] 14.7 % Normal 11.5-15.0 [facility] Comment on above: Order Comment: No: D o not add to previous drawNurse draw rn barbara Performed By: #### 5 0608 ####[facility] Hematocrit (Bld) [Volume fraction] 32.7 % Low 39.0-50.0 [facility] Comment on above: Order Comment: No: D o not add to previous drawNurse draw rn barbara Performed By: #### 5 0608 ####[facility] Hemoglobin (Bld) [Mass/Vol] 10.7 g/dL Low 13.0-17.0 [facility] Comment on above: Order Comment: No: D o not add to previous drawNurse draw rn barbara Performed By: #### 5 0608 ####[facility] [facility].[address] MCH (RBC) [Entitic mass] 30.1 pg Normal 27.0-33.0 [facility] Comment on above: Order Comment: No: D o not add to previous drawNurse draw rn barbara Performed By: #### 5 0608 ####[facility] [facility].[address] MCHC (RBC) [Mass/Vol] 32.7 g/dL Normal 32.0-35.0 [facility] Comment on above: Order Comment: No: D o not add to previous drawNurse draw rn barbara Performed By: #### 5 0608 ####[facility] [facility].[address] MCV (RBC) [Entitic vol] 92.1 fL Normal 82.0-98.0 [facility] Comment on above: Order Comment: No: D o not add to previous drawNurse draw rn barbara Performed By: #### 5 0608 ####[facility] Nucleated RBC/100 WBC (Bld) [Ratio] 0 % Normal 0-0 [facility] Comment on above: Order Comment: No: D o not add to previous drawNurse draw rn barbara Performed By: #### 5 0608 ####[facility] PLAT CNT 176 10*3/uL Normal 150-400 [facility] Comment on above: Order Comment: No: D o not add to previous drawNurse draw rn barbara Performed By: #### 5 0608 ####[facility] [facility].[address] RBC (Bld) [#/Vol] 3.55 10*6/uL Low 4.20-5.70 [facility] Comment on above: Order Comment: No: D o not add to previous drawNurse draw rn barbara Performed By: #### 5 0608 ####[facility] [place] [address].[address] WBC (Bld) [#/Vol] 12.43 10*3/uL High 4.00-10.60 [facility] Comment on above: Order Comment: No: D o not add to previous drawNurse draw rn barbara Performed By: #### 5 0608 ####[facility] [place] [address], [facility] COOXIMETRYon 04-10-2021 COHB 1 % Normal [facility] Comment on above: Performed By: #### 7 0207 ####[facility] METHB 0 % Normal [facility] Comment on above: Performed By: #### 7 0207 ####[facility] Oxygen saturation in Blood 68.2 % Normal 65.0-75.0 [facility] Comment on above: Performed By: #### 7 0207 ####[facility] [facility].[address] THB 13.1 g/dL Normal [facility] Comment on above: Performed By: #### 7 0207 ####[facility] [facility] [place] [address], [facility] LACTATE BLOODon 04-10-2021 Lactate [Moles/Vol] 0.7 mmol/L Normal .5-2.2 The [facility] Comment on above: Order Comment: No: D o not add to previous drawNurse draw rn barbara Performed By: #### 1 0054 ####[facility] [place] [address], [facility] MAGNESIUM BLOODon 04-10-2021 Magnesium [Mass/Vol] 2.3 mg/dL Normal 1.9-2.7 [facility] Comment on above: Order Comment: No: D o not add to previous drawNurse draw rn barbara Performed By: #### 4 1000, 16818, 21564 ####[facility] [place] [address], [place] PHOSPHORUS BLOODon Phosphate [Mass/Vol] 3.9 mg/dL Normal 2.5-5.0 [facility] Comment on above: Order Comment: No: D o not add to previous drawNurse draw sumit [place] Performed By: #### 4 1000, 73728, 38951 ####[facility] [place] [address], [place] POC GLUCOSE LABon 04-10-2021 Glucose [Mass/Vol] 168 mg/dL High 70-100 [facility] Comment on above: Performed By: #### 8 5499 ####[facility] [place] [address], [place] Glucose [Mass/Vol] 131 mg/dL High 70-100 [facility] Comment on above: Performed By: #### 8 5499 ####[facility] [place] [address], [place] Glucose [Mass/Vol] 123 mg/dL High 70-100 [facility] Comment on above: Performed By: #### 8 5499 ####[facility] [place] [address], [place] Glucose [Mass/Vol] 170 mg/dL High 70-100 [facility] Comment on above: Performed By: #### 8 5499 ####[facility] [place] [address], [place] Glucose [Mass/Vol] 131 mg/dL High 70-100 [facility] Comment on above: Performed By: #### 8 5499 ####[facility] [place] [address], [place] Glucose [Mass/Vol] 123 mg/dL High 70-100 [facility] Comment on above: Performed By: #### 8 5499 ####[facility] [place] [address], [place] Glucose [Mass/Vol] 92 mg/dL Normal 70-100 [facility] Comment on above: Performed By: #### 8 5499 ####[facility] [place] [address], [place] Glucose [Mass/Vol] 99 mg/dL Normal 70-100 [facility] Comment on above: Performed By: #### 8 5499 ####[facility] [place] [address], [place] Glucose [Mass/Vol] 124 mg/dL High 70-100 [facility] Comment on above: Performed By: #### 8 5499 ####[facility] [place] [address], [place] Glucose [Mass/Vol] 141 mg/dL High 70-100 [facility] Comment on above: Performed By: #### 8 5499 ####[facility] [place] [address], [place] Glucose [Mass/Vol] 143 mg/dL High 70-100 [facility] Comment on above: Performed By: #### 8 5499 ####[facility] [place] [address], [place] PORTABLE CHEST 1 VIEWon 03-24 PORTABLE CHEST 1 VIEW Normal [facility] Comment on above: Order Comment: Check Chest Tube Position, s/p mediasteinal tube removal PORTABLE CHEST 1 VIEW Normal [facility] Comment on above: Order Comment: evalu ate for Atelectasis APTTon 04-09-2021 aPTT Coag (Bld) [Time] 28.6 s Normal 25.0-35.0 [facility] Comment on above: Order Comment: post op day 1No: Do not add to previous draw Result Comment: ALL RESULTS MUST BE INTERPRETED WITH RESPECT TO BLOOD DRAWING ARTIFACTOR DILUTION ERROR OF ANTICOAGULANT AT THE TIME OF SAMPLING.THE APTT SHOULD NOT BE USED TO MONITOR UNFRACTIONATED HEPARIN THERAPY, THIS LABORATORY NO LONGER HAS AN ESTABLISHED THERAPEUTIC RANGE BASEDON THE APTT. IT IS RECOMMENDED THAT THE [facility] - HEPARIN ASSAY (ANTI-XAACTIVITY) BE USED FOR THIS PURPOSE. Performed By: #### 5 7307, 90401 ####[facility] ARTERIAL BLOOD GAS WITH ICAo n 04-09-2021 DELIVERY SYSTEMS NC Normal The [facility] Comment on above: Performed By: #### 8 4511 ####[facility] [place] [address], [facility] IONIZED CALCIUM 1.15 mmol/L Normal 1.13-1.32 [facility] Comment on above: Performed By: #### 8 4511 ####[facility] [place] [address], [facility] LPM 4.0 LPM Normal [facility] Comment on above: Performed By: #### 8 4511 ####[facility] [facility] [place] [address], [facility] Oxygen (Bld) [Partial pressure] 63 mm[Hg] Low 83-108 [facility] Comment on above: Performed By: #### 8 4511 ####[facility] Oxygen saturation in Blood 94.2 % Normal 94.0-97.0 [facility] Comment on above: Performed By: #### 8 4511 ####[facility] [place] [address], [facility] BASE EXCESS 3 mmol/L Normal -2-3 [facility] Comment on above: Performed By: #### 8 4511 ####[facility], [place] [address] DELIVERY SYSTEMS MV Normal [facility] Comment on above: Performed By: #### 8 4511 ####[facility] [place] [address], [facility] FIO2 40 % Normal [facility] Comment on above: Performed By: #### 8 4511 ####[facility] [place] [address], [facility] HCO3 (Bld) [Moles/Vol] 27 mmol/L Normal 21-28 [facility] Comment on above: Performed By: #### 8 4511 ####[facility] IONIZED CALCIUM 1.17 mmol/L Normal 1.13-1.32 [facility] Comment on above: Performed By: #### 8 4511 ####[facility] [place] [address], [facility] MIN VOLUME 14.0 Normal [facility] Comment on above: Performed By: #### 8 4511 ####[facility] [place] [address], [facility] MODALITY SPONT Normal [facility] Comment on above: Performed By: #### 8 4511 ####[facility], [place] [address] [place] [address] Oxygen (Bld) [Partial pressure] 79 mm[Hg] Low 83-108 [facility] Comment on above: Performed By: #### 8 4511 ####[facility] [place] [address], [facility] Oxygen saturation in Blood 96.5 % Normal 94.0-97.0 [facility] Comment on above: Performed By: #### 8 4511 ####[facility] [place] [address], [facility] PCO2 37 mmHg Normal 35-45 [facility] Comment on above: Performed By: #### 8 4511 ####[facility] [place] [address], [facility] PEEP 5.0 CMH20 Normal [facility] Comment on above: Performed By: #### 8 4511 ####[facility] [place] [address], [facility] PF RATIO 198 mmHg Normal [facility] Comment on above: Performed By: #### 8 4511 ####[facility] [place] [address], [facility] pH (Bld) 7.47 [pH] High 7.35-7.45 [facility] Comment on above: Performed By: #### 8 4511 ####[facility] [place] [address], [facility] PRESSURE SUPPORT 5 Normal [facility] Comment on above: Performed By: #### 8 4511 ####[facility] [place] [address], [facility] BASE EXCESS 2 mmol/L Normal -2-3 [facility] Comment on above: Performed By: #### 8 4511 ####[facility] [place] [address], [facility] DELIVERY SYSTEMS MV Normal [facility] Comment on above: Performed By: #### 8 4511 ####[facility] [place] [address], [facility] FIO2 50 % Normal [facility] Comment on above: Performed By: #### 8 4511 ####[facility] [place] [address], [facility] HCO3 (Bld) [Moles/Vol] 26 mmol/L Normal 21-28 [facility] Comment on above: Performed By: #### 8 4511 ####[facility] [place] [address], [place] IONIZED CALCIUM 1.17 mmol/L Normal 1.13-1.32 [facility] Comment on above: Performed By: #### 8 4511 ####[facility] [place] [address], [place] MIN VOLUME 13.3 Normal [facility] Comment on above: Performed By: #### 8 4511 ####[facility] [place] [address], [place] MODALITY SIMV Normal [facility] Comment on above: Performed By: #### 8 4511 ####[facility] [place] [address], [place] Oxygen (Bld) [Partial pressure] 79 mm[Hg] Low 83-108 [facility] Comment on above: Performed By: #### 8 4511 ####[facility] [place] [address], [place] Oxygen saturation in Blood 96.8 % Normal 94.0-97.0 [facility] Comment on above: Performed By: #### 8 4511 ####[facility] [place] [address], [place] PCO2 36 mmHg Normal 35-45 [facility] Comment on above: Performed By: #### 8 4511 ####[facility] [place] [address], [place] PEEP 8.0 CMH20 Normal [facility] Comment on above: Performed By: #### 8 4511 ####[facility] [place] [address], [place] PF RATIO 158 mmHg Normal [facility] Comment on above: Performed By: #### 8 4511 ####[facility] pH (Bld) 7.46 [pH] High 7.35-7.45 [facility] Comment on above: Performed By: #### 8 4511 ####[facility] PRESSURE SUPPORT 10 Normal [facility] Comment on above: Performed By: #### 8 4511 ####[facility] [facility].[address] Respiratory rate 18 /min Normal [facility] Comment on above: Performed By: #### 8 4511 ####[facility] [facility].[address] TIDAL VOLUME (VT) CC 700 Normal [facility] Comment on above: Performed By: #### 8 4511 ####[facility] [facility].[address] BASE EXCESS -4 mmol/L Low -2-3 [facility] Comment on above: Performed By: #### 8 4511 ####[facility] [facility].[address] DELIVERY SYSTEMS MV Normal [facility] Comment on above: Performed By: #### 8 4511 ####[facility] [facility].[address] FIO2 80 % Normal [facility] Comment on above: Performed By: #### 8 4511 ####[facility] [facility].[address] HCO3 (Bld) [Moles/Vol] 20 mmol/L Low 21-28 [facility] Comment on above: Performed By: #### 8 4511 ####[facility] [facility].[address] IONIZED CALCIUM 1.14 mmol/L Normal 1.13-1.32 [facility] Comment on above: Performed By: #### 8 4511 ####[facility] [place] [address], [facility] MIN VOLUME 13.5 Normal [facility] Comment on above: Performed By: #### 8 4511 ####[facility] [place] [address], [facility] MODALITY SIMV Normal [facility] Comment on above: Performed By: #### 8 4511 ####[facility] [place] [address], [facility] Oxygen (Bld) [Partial pressure] 121 mm[Hg] Critically high 83-108 [facility] Comment on above: Performed By: #### 8 4511 ####[facility] [place] [address], [facility] Oxygen saturation in Blood 97.1 % High 94.0-97.0 [facility] Comment on above: Performed By: #### 8 4511 ####[facility] [place] [address], [facility] PCO2 34 mmHg Low 35-45 [facility] Comment on above: Performed By: #### 8 4511 ####[facility] [place] [address], [facility] PEEP 8.0 CMH20 Normal [facility] Comment on above: Performed By: #### 8 4511 ####[facility] [place] [address], [facility] pH (Bld) 7.38 [pH] Normal 7.35-7.45 [facility] Comment on above: Performed By: #### 8 4511 ####[facility] [place] [address], [facility] PRESSURE SUPPORT 10 Normal [facility] Comment on above: Performed By: #### 8 4511 ####[facility] [place] [address], [facility] Respiratory rate 18 /min Normal [facility] Comment on above: Performed By: #### 8 4511 ####[facility] [place] [address], [facility] TIDAL VOLUME (VT) CC 700 Normal [facility] Comment on above: Performed By: #### 8 4511 ####[facility] [place] [address], [facility] BASE EXCESS -8 mmol/L Low -2-3 [facility] Comment on above: Performed By: #### 8 4511 ####[facility] [place] [address], [facility] DELIVERY SYSTEMS MV Normal [facility] Comment on above: Performed By: #### 8 4511 ####[facility] [place] [address], [facility] FIO2 80 % Normal [facility] Comment on above: Performed By: #### 8 4511 ####[facility] [place] [address], [facility] HCO3 (Bld) [Moles/Vol] 18 mmol/L Low 21-28 [facility] Comment on above: Performed By: #### 8 4511 ####[facility] [place] [address], [facility] IONIZED CALCIUM 1.06 mmol/L Low 1.13-1.32 [facility] Comment on above: Performed By: #### 8 4511 ####[facility] [place] [address], [facility] MIN VOLUME 16.6 Normal [facility] Comment on above: Performed By: #### 8 4511 ####[facility] [place] [address], [place] MODALITY SIMV Normal [facility] Comment on above: Performed By: #### 8 4511 ####[facility] [place] [address], [place] Oxygen (Bld) [Partial pressure] 86 mm[Hg] Normal 83-108 [facility] Comment on above: Performed By: #### 8 4511 ####[facility] [place] [address], [place] Oxygen saturation in Blood 96.6 % Normal 94.0-97.0 [facility] Comment on above: Performed By: #### 8 4511 ####[facility] [place] [address], [place] PCO2 34 mmHg Low 35-45 [facility] Comment on above: Performed By: #### 8 4511 ####[facility] [place] [address], [place] PEEP 8.0 CMH20 Normal [facility] Comment on above: Performed By: #### 8 4511 ####[facility] [place] [address], [place] PF RATIO 108 mmHg Normal [facility] Comment on above: Performed By: #### 8 4511 ####[facility] [place] [address], [place] pH (Bld) 7.32 [pH] Low 7.35-7.45 [facility] Comment on above: Performed By: #### 8 4511 ####[facility] [place] [address], [place] PRESSURE SUPPORT 10 Normal [facility] Comment on above: Performed By: #### 8 4511 ####[facility] [place] [address], [facility] Respiratory rate 18 /min Normal [facility] Comment on above: Performed By: #### 8 4511 ####[facility] [facility] [place] [address], [facility] TIDAL VOLUME (VT) CC 700 Normal [facility] Comment on above: Performed By: #### 8 4511 ####[facility] [facility].[address] BASIC METABOLIC PANELon 08-1 Calcium [Mass/Vol] 8.0 mg/dL Low 8.6-10.3 [facility] Comment on above: Order Comment: No: D o not add to previous draw Performed By: #### 0 0071, [address] ####[place] [id number] [facility] [place] [place] [address], [facility] Chloride [Moles/Vol] 107 mmol/L Normal 98-107 [facility] Comment on above: Order Comment: No: D o not add to previous draw Performed By: #### 0 0071, [id number] ####[place] [address] [facility] [place] [address], [facility] CO2 [Moles/Vol] 26 mmol/L Normal 21-31 [facility] Comment on above: Order Comment: No: D o not add to previous draw Performed By: #### 0 0071, 83565 ####[facility] [facility] [place] [address], [facility] Creatinine [Mass/Vol] 0.90 mg/dL Normal 0.70-1.30 [facility] Comment on above: Order Comment: No: D o not add to previous draw Performed By: #### 0 0071, 91202 ####[place] [id number] [place] [address], [facility] GFR/1.73 sq M.predicted among blacks MDRD (S/P/Bld) [Vol rate/Area] mL/min/{1.73_m2} Normal >60 [facility] Comment on above: Order Comment: No: D o not add to previous draw Result Comment: Calc ulation may not be valid for patients over 70 years Performed By: #### 0 0071, 78066 ####[facility] [place] [address], [place] GFR/1.73 sq M.predicted among non-blacks MDRD (S/P/Bld) [Vol rate/Area] mL/min/{1.73_m2} Normal >60 [facility] Comment on above: Order Comment: No: D o not add to previous draw Result Comment: Calc ulation may not be valid for patients over 70 years Performed By: #### 0 0071, 21112 ####[facility] [place] [address], [place] Glucose [Mass/Vol] 126 mg/dL High 70-100 [facility] Comment on above: Order Comment: No: D o not add to previous draw Performed By: #### 0 0071, 46032 ####[facility] [place] [address], [place] Potassium [Moles/Vol] 3.8 mmol/L Normal 3.5-5.1 [facility] Comment on above: Order Comment: No: D o not add to previous draw Performed By: #### 0 0071, 83458 ####[facility] [place] [address], [place] Sodium [Moles/Vol] 136 mmol/L Normal 136-145 [facility] Comment on above: Order Comment: No: D o not add to previous draw Performed By: #### 0 0071, 75624 ####[facility] [place] [address], [place] Urea nitrogen [Mass/Vol] 21 mg/dL Normal 7-25 [facility] Comment on above: Order Comment: No: D o not add to previous draw Performed By: #### 0 0071, 98816 ####[facility] [place] [address], [facility] Calcium [Mass/Vol] 7.8 mg/dL Low 8.6-10.3 [facility] Comment on above: Order Comment: post op day 1No: Do not add to previous draw Performed By: #### 1 69, 23716 ####[facility] [place] [address], [place] Chloride [Moles/Vol] 103 mmol/L Normal 98-107 [facility] Comment on above: Order Comment: post op day 1No: Do not add to previous draw Performed By: #### 1 69, 67162 ####[facility] [id number], [place] CO2 [Moles/Vol] 20 mmol/L Low 21-31 [facility] Comment on above: Order Comment: post op day 1No: Do not add to previous draw Performed By: #### 1 69, 05439 ####[facility] [place] [address], [place] Creatinine [Mass/Vol] 1.25 mg/dL Normal 0.70-1.30 [facility] Comment on above: Order Comment: post op day 1No: Do not add to previous draw Performed By: #### 1 69, 07072 ####[facility] [id number], [place] eGFR- non- 56 ml/min/1.73sq m Abnormal >60 [facility] Comment on above: Order Comment: post op day 1No: Do not add to previous draw Result Comment: Calc ulation may not be valid for patients over 70 years Performed By: #### 1 69, 10036 ####[facility] [place] [address], [facility] GFR/1.73 sq M.predicted among blacks MDRD (S/P/Bld) [Vol rate/Area] mL/min/{1.73_m2} Normal >60 [facility] Comment on above: Order Comment: post op day 1No: Do not add to previous draw Result Comment: Calc ulation may not be valid for patients over 70 years Performed By: #### 1 0, 39504 ####[facility] [facility] [place] [address], [facility] Glucose [Mass/Vol] 331 mg/dL High 70-100 [facility] Comment on above: Order Comment: post op day 1No: Do not add to previous draw Performed By: #### 1 69, 42784 ####[facility] [facility] [place] [address], [facility] Potassium [Moles/Vol] 3.2 mmol/L Low 3.5-5.1 [facility] Comment on above: Order Comment: post op day 1No: Do not add to previous draw Performed By: #### 1 69, 55534 ####[facility] [facility] [place] [address], [facility] Sodium [Moles/Vol] 135 mmol/L Low 136-145 [facility] Comment on above: Order Comment: post op day 1No: Do not add to previous draw Performed By: #### 1 69, 29454 ####[facility] [facility] [place] [address], [facility] Urea nitrogen [Mass/Vol] 24 mg/dL Normal 7-25 [facility] Comment on above: Order Comment: post op day 1No: Do not add to previous draw Performed By: #### 1 69, 30880 ####[facility] [facility] [place] [address], [facility] CBC COMPLETE BLOOD COUNTon 0 - Erythrocyte distribution width (RBC) [Ratio] 14.6 % Normal 11.5-15.0 [facility] Comment on above: Order Comment: post op day 1No: Do not add to previous draw Performed By: #### 5 0608 ####[facility] [facility].[address] Hematocrit (Bld) [Volume fraction] 30.5 % Low 39.0-50.0 [facility] Comment on above: Order Comment: post op day 1No: Do not add to previous draw Performed By: #### 5 0608 ####[facility] Hemoglobin (Bld) [Mass/Vol] 10.2 g/dL Low 13.0-17.0 [facility] Comment on above: Order Comment: post op day 1No: Do not add to previous draw Performed By: #### 5 0608 ####[facility] [facility].[address] MCH (RBC) [Entitic mass] 30.9 pg Normal 27.0-33.0 [facility] Comment on above: Order Comment: post op day 1No: Do not add to previous draw Performed By: #### 5 0608 ####[facility] [facility].[address] MCHC (RBC) [Mass/Vol] 33.4 g/dL Normal 32.0-35.0 [facility] Comment on above: Order Comment: post op day 1No: Do not add to previous draw Performed By: #### 5 0608 ####[facility] [facility] [place] [address], [facility] MCV (RBC) [Entitic vol] 92.4 fL Normal 82.0-98.0 [facility] Comment on above: Order Comment: post op day 1No: Do not add to previous draw Performed By: #### 5 0608 ####[facility] Nucleated RBC/100 WBC (Bld) [Ratio] 0 % Normal 0-0 [facility] Comment on above: Order Comment: post op day 1No: Do not add to previous draw Performed By: #### 5 0608 ####[facility] [place] [address], [facility] PLAT CNT 232 10*3/uL Normal 150-400 [facility] Comment on above: Order Comment: post op day 1No: Do not add to previous draw Performed By: #### 5 0608 ####[facility] [place] [address], [facility] RBC (Bld) [#/Vol] 3.30 10*6/uL Low 4.20-5.70 The [facility] Comment on above: Order Comment: post op day 1No: Do not add to previous draw Performed By: #### 5 0608 ####[facility] [place] [address], [facility] WBC (Bld) [#/Vol] 17.37 10*3/uL High 4.00-10.60 [facility] Comment on above: Order Comment: post op day 1No: Do not add to previous draw Performed By: #### 5 0608 ####[facility] [place] [address], [facility] CBC W/DIFFon 04-09-2021 ABS IMM GRANS 0.1 10*3/uL Normal 0.0-0.2 [facility] Comment on above: Order Comment: No: D o not add to previous draw Performed By: #### 5 0103 ####[facility] [place] [address], [facility] ABS NEUTROPHILS 8.3 10*3/uL High 1.6-7.6 The [facility] Comment on above: Order Comment: No: D o not add to previous draw Performed By: #### 5 0103 ####[facility] [facility] [place] [address], [facility] Basophils (Bld) [#/Vol] 0.0 10*3/uL Normal 0.0-0.2 [facility] Comment on above: Order Comment: No: D o not add to previous draw Performed By: #### 5 0103 ####[facility] [facility] [place] [address], [facility] Basophils/100 WBC (Bld) 0.1 % Normal 0.0-1.0 [facility] Comment on above: Order Comment: No: D o not add to previous draw Performed By: #### 5 0103 ####[facility] [place] [address], [facility] Eosinophils (Bld) [#/Vol] 0.0 10*3/uL Normal 0.0-0.5 [facility] Comment on above: Order Comment: No: D o not add to previous draw Performed By: #### 5 0103 ####[facility] [place] [address], [facility] Eosinophils/100 WBC (Bld) 0.0 % Normal 0.0-6.0 [facility] Comment on above: Order Comment: No: D o not add to previous draw Performed By: #### 5 0103 ####[facility] Erythrocyte distribution width (RBC) [Ratio] 14.4 % Normal 11.5-15.0 [facility] Comment on above: Order Comment: No: D o not add to previous draw Performed By: #### 5 0103 ####[place] [id number] [place] [address], [facility] Hematocrit (Bld) [Volume fraction] 28.9 % Low 39.0-50.0 [facility] Comment on above: Order Comment: No: D o not add to previous draw Performed By: #### 5 0103 ####[facility] [facility].[address] Hemoglobin (Bld) [Mass/Vol] 9.6 g/dL Low 13.0-17.0 [facility] Comment on above: Order Comment: No: D o not add to previous draw Performed By: #### 5 0103 ####[facility] IMMATURE GRANS 0.5 % Normal 0.0-1.0 The [facility] Comment on above: Order Comment: No: D o not add to previous draw Performed By: #### 5 0103 ####[facility] [place] [address] Lymphocytes (Bld) [#/Vol] 1.3 10*3/uL Normal 1.2-4.0 [facility] Comment on above: Order Comment: No: D o not add to previous draw Performed By: #### 5 0103 ####[facility] Lymphocytes/100 WBC (Bld) 12.1 % Low 20.0-45.0 [facility] Comment on above: Order Comment: No: D o not add to previous draw Performed By: #### 5 0103 ####[facility] [facility].[address] MCH (RBC) [Entitic mass] 30.6 pg Normal 27.0-33.0 [facility] Comment on above: Order Comment: No: D o not add to previous draw Performed By: #### 5 0103 ####[facility] [place] [address] MCHC (RBC) [Mass/Vol] 33.2 g/dL Normal 32.0-35.0 [facility] Comment on above: Order Comment: No: D o not add to previous draw Performed By: #### 5 0103 ####[facility] [facility].[address] MCV (RBC) [Entitic vol] 92.0 fL Normal 82.0-98.0 [facility] Comment on above: Order Comment: No: D o not add to previous draw Performed By: #### 5 0103 ####[facility] [facility] [place] [address], [facility] Monocytes (Bld) [#/Vol] 1.2 10*3/uL High 0.1-1.0 [facility] Comment on above: Order Comment: No: D o not add to previous draw Performed By: #### 5 0103 ####[facility] MONOS 10.9 % Normal 5.0-12.0 [facility] Comment on above: Order Comment: No: D o not add to previous draw Performed By: #### 5 3 ####[facility] [facility].[address] Neutrophils/100 WBC (Bld) 76.4 % High 40.0-72.0 [facility] Comment on above: Order Comment: No: D o not add to previous draw Performed By: #### 5 3 ####[facility] [facility].[address] Nucleated RBC/100 WBC (Bld) [Ratio] 0 % Normal 0-0 [facility] Comment on above: Order Comment: No: D o not add to previous draw Performed By: #### 5 3 ####[facility] [facility] [place] [address], [facility] PLAT CNT 175 10*3/uL Normal 150-400 [facility] Comment on above: Order Comment: No: D o not add to previous draw Performed By: #### 5 3 ####[facility] [place] [address], [place] RBC (Bld) [#/Vol] 3.14 10*6/uL Low 4.20-5.70 The [facility] Comment on above: Order Comment: No: D o not add to previous draw Performed By: #### 5 0103 ####[facility] [place] [address], [place] WBC (Bld) [#/Vol] 10.92 10*3/uL High 4.00-10.60 [facility] Comment on above: Order Comment: No: D o not add to previous draw Performed By: #### 5 0103 ####[facility] [place] [address], [facility] LACTATE BLOODon 04-09-2021 Lactate [Moles/Vol] 0.9 mmol/L Normal .5-2.2 The [facility] Comment on above: Order Comment: No: D o not add to previous draw Performed By: #### 1 0054 ####[facility] [facility] [place] [address], [facility] Lactate [Moles/Vol] 3.8 mmol/L High .5-2.2 The [facility] Comment on above: Order Comment: No: D o not add to previous draw Result Comment: M-CR ITICAL RESULT(S) REVIEWED, CALLED TO AND READ BACK BY [employer]IVER 0855 Performed By: #### 1 0054 ####[facility] [place] [address], [place] Lactate [Moles/Vol] 7.1 mmol/L Critically high .5-2.2 [facility] Comment on above: Order Comment: post op day 1No: Do not add to previous draw Result Comment: M-W[place] EVIOUS CRITICAL RESULT Performed By: #### 1 0054 ####[facility] [place] [address], [place] MAGNESIUM BLOODon 04-09-2021 Magnesium [Mass/Vol] 2.3 mg/dL Normal 1.9-2.7 [facility] Comment on above: Order Comment: No: D o not add to previous draw Performed By: #### 1 0070, 89075 ####[facility] [place] [address], [place] Magnesium [Mass/Vol] 2.2 mg/dL Normal 1.9-2.7 [facility] Comment on above: Order Comment: added from prior Performed By: #### 0 0071, 64365 ####[facility] [place] [address], [place] Magnesium [Mass/Vol] 2.4 mg/dL Normal 1.9-2.7 [facility] Comment on above: Order Comment: post op day 1No: Do not add to previous draw Performed By: #### 1 0070, 01225 ####[facility] [place] [address], [place] Operative Reporton Operative Report Normal The [facility] POC GLUCOSE LABon 04-09-2021 Glucose [Mass/Vol] 162 mg/dL High 70-100 [facility] Comment on above: Performed By: #### 8 5499 ####[facility] [place] [address], [place] Glucose [Mass/Vol] 128 mg/dL High 70-100 [facility] Comment on above: Performed By: #### 8 5499 ####[facility] [place] [address], [place] Glucose [Mass/Vol] 117 mg/dL High 70-100 [facility] Comment on above: Performed By: #### 8 5499 ####[facility] [place] [address], [place] Glucose [Mass/Vol] 110 mg/dL High 70-100 [facility] Comment on above: Performed By: #### 8 5499 ####[facility] [place] [address], [place] Glucose [Mass/Vol] 65 mg/dL Low 70-100 [facility] Comment on above: Performed By: #### 8 5499 ####[facility] [place] [address], [place] Glucose [Mass/Vol] 86 mg/dL Normal 70-100 [facility] Comment on above: Performed By: #### 8 5499 ####[facility] [place] [address], [place] Glucose [Mass/Vol] 127 mg/dL High 70-100 [facility] Comment on above: Performed By: #### 8 5499 ####[facility] [place] [address], [place] Glucose [Mass/Vol] 230 mg/dL High 70-100 [facility] Comment on above: Performed By: #### 8 5499 ####[facility] [place] [address], [place] Glucose [Mass/Vol] 244 mg/dL High 70-100 [facility] Comment on above: Performed By: #### 8 5499 ####[facility] [place] [address], [place] Glucose [Mass/Vol] 283 mg/dL High 70-100 [facility] Comment on above: Performed By: #### 8 5499 ####[facility] [place] [address], [place] Glucose [Mass/Vol] 326 mg/dL High 70-100 [facility] Comment on above: Performed By: #### 8 5499 ####[facility] [place] [address], [place] Glucose [Mass/Vol] 347 mg/dL High 70-100 [facility] Comment on above: Performed By: #### 8 5499 ####[facility] [place] [address], [place] Glucose [Mass/Vol] 258 mg/dL High 70-100 [facility] Comment on above: Performed By: #### 8 5499 ####[facility] [place] [address], [place] Glucose [Mass/Vol] 334 mg/dL High 70-100 [facility] Comment on above: Performed By: #### 8 5499 ####[facility] [place] [address], [place] Glucose [Mass/Vol] 338 mg/dL High 70-100 [facility] Comment on above: Performed By: #### 8 5499 ####[facility] [place] [address], [place] Glucose [Mass/Vol] 321 mg/dL High 70-100 [facility] Comment on above: Performed By: #### 8 5499 ####[facility] [place] [address], [place] Glucose [Mass/Vol] 302 mg/dL High 70-100 [facility] Comment on above: Performed By: #### 8 5499 ####[facility] [place] [address], [place] PORTABLE CHEST 1 VIEWon 03-24 PORTABLE CHEST 1 VIEW Normal [facility] Comment on above: Order Comment: Check Chest Tube Position POTASSIUM BLOODon 04-09-2021 Potassium [Moles/Vol] 4.6 mmol/L Normal 3.5-5.1 [facility] Comment on above: Order Comment: No: D o not add to previous draw Performed By: #### 1 0070, 73651 ####[facility] [facility] [place] [address], [facility] PROTHROMBIN TIMEon 1 INR Coag (PPP) [Relative time] 1.22 {INR} High 0.91-1.16 [facility] Comment on above: Order Comment: post op day 1No: Do not add to previous draw Result Comment: ACCC P RECOMMENDED INR FOR WARFARIN THERAPY CONDITION INRPROPHYLAXIS OF VENOUS THROMBOSIS 2-3(HIGH-RISK SURGERY)TREATMENT OF VENOUS THROMBOSIS 2-3TREATMENT OF PULMONARY EMBOLISM 2-3PREVENTION OF SYSTEMIC EMBOLISM: 2-3 ACUTE MYOCARDIAL INFARCTION TISSUE HEART VALVES VALVULAR HEART DISEASE ATRIAL FIBRILLATION RECURRENT SYSTEMIC EMBOLISMMECHANICAL HEART VALVE 2.5-3.5 FROM: ORAL ANTICOAGULANTS. MECHANISM OF ACTION, CLINICALEFFECTIVENESS, AND OPTIMAL THERAPEUTIC RANGE. [id number]. Performed By: #### 5 7307, 79089 ####[facility] [facility] [place] [address], [facility] PT Coag (PPP) [Time] 15.4 s High 12.3-14.8 [facility] Comment on above: Order Comment: post op day 1No: Do not add to previous draw Result Comment: ALL RESULTS MUST BE INTERPRETED WITH RESPECT TO BLOOD DRAWING ARTIFACTOR DILUTION ERROR OF ANTICOAGULANT AT THE TIME OF SAMPLING. Performed By: #### 5 73, 41303 ####[facility] [place] [address], [facility] ACTIVATED CLOTTING TIMEon ACTIVATED CLOTTING TIME 121 sec Normal 82-152 [facility] Comment on above: Performed By: #### 3 0739 ####[facility] [place] [address], [place] ACTIVATED CLOTTING TIME 305 sec High 82-152 [facility] Comment on above: Performed By: #### 3 0739 ####[facility] [place] [address], [place] ACTIVATED CLOTTING TIME 286 sec High 82-152 [facility] Comment on above: Performed By: #### 3 0739 ####[facility] [place] [address], [place] ACTIVATED CLOTTING TIME 279 sec High 82-152 [facility] Comment on above: Performed By: #### 3 0739 ####[facility] [place] [address], [place] ACTIVATED CLOTTING TIME 325 sec High 82-152 [facility] Comment on above: Performed By: #### 3 0739 ####[facility] [place] [address], [place] ACTIVATED CLOTTING TIME 184 sec High 82-152 [facility] Comment on above: Performed By: #### 3 0739 ####[facility] [place] [address], [place] ACTIVATED CLOTTING TIME 121 sec Normal 82-152 [facility] Comment on above: Performed By: #### 3 0739 ####[facility] [place] [address], [place] APTTon 04-08-2021 aPTT Coag (Bld) [Time] 30.4 s Normal 25.0-35.0 [facility] Comment on above: Order Comment: No: D o not add to previous draw Result Comment: ALL RESULTS MUST BE INTERPRETED WITH RESPECT TO BLOOD DRAWING ARTIFACTOR DILUTION ERROR OF ANTICOAGULANT AT THE TIME OF SAMPLING.THE APTT SHOULD NOT BE USED TO MONITOR UNFRACTIONATED HEPARIN THERAPY, THIS LABORATORY NO LONGER HAS AN ESTABLISHED THERAPEUTIC RANGE BASEDON THE APTT. IT IS RECOMMENDED THAT THE UFH - HEPARIN ASSAY (ANTI-XAACTIVITY) BE USED FOR THIS PURPOSE. Performed By: #### 5 6101, 51699 ####[facility] [place] [address], [facility] aPTT Coag (Bld) [Time] 30.6 s Normal 25.0-35.0 [facility] Comment on above: Result Comment: ALL RESULTS MUST BE INTERPRETED WITH RESPECT TO BLOOD DRAWING ARTIFACTOR DILUTION ERROR OF ANTICOAGULANT AT THE TIME OF SAMPLING.THE APTT SHOULD NOT BE USED TO MONITOR UNFRACTIONATED HEPARIN THERAPY, THIS LABORATORY NO LONGER HAS AN ESTABLISHED THERAPEUTIC RANGE BASEDON THE APTT. IT IS RECOMMENDED THAT THE UFH - HEPARIN ASSAY (ANTI-XAACTIVITY) BE USED FOR THIS PURPOSE. Performed By: #### 5 7307, 51149, [id number] ####[facility] ARTERIAL BLOOD GAS WITH ICAo n 04-08-2021 BASE EXCESS -4 mmol/L Low -2-3 [facility] Comment on above: Order Comment: on ar rival to CVU Performed By: #### 8 4511 ####[facility] [facility] [place] [address], [facility] DELIVERY SYSTEMS MV Normal [facility] Comment on above: Order Comment: on ar rival to CVU Performed By: #### 8 4511 ####[facility] [place] [address], [facility] FIO2 70 % Normal [facility] Comment on above: Order Comment: on ar rival to CVU Performed By: #### 8 4511 ####[facility] [place] [address], [facility] HCO3 (Bld) [Moles/Vol] 21 mmol/L Normal 21-28 [facility] Comment on above: Order Comment: on ar rival to CVU Performed By: #### 8 4511 ####[facility] [place] [address], [facility] IONIZED CALCIUM 1.09 mmol/L Low 1.13-1.32 [facility] Comment on above: Order Comment: on ar rival to CVU Performed By: #### 8 4511 ####[facility] [place] [address], [facility] MIN VOLUME 14.2 Normal [facility] Comment on above: Order Comment: on ar rival to CVU Result Comment: Resu lt changed by DOTTY on 04/08/2021 19:16. The previous value was16.0. Performed By: #### 8 4511 ####[facility] [place] [address], [facility] MODALITY SIMV Normal [facility] Comment on above: Order Comment: on ar rival to CVU Performed By: #### 8 4511 ####[facility] [place] [address], [facility] Oxygen (Bld) [Partial pressure] 69 mm[Hg] Low 83-108 [facility] Comment on above: Order Comment: on ar rival to CVU Performed By: #### 8 4511 ####[facility] [place] [address], [facility] Oxygen saturation in Blood 93.8 % Low 94.0-97.0 [facility] Comment on above: Order Comment: on ar rival to CVU Performed By: #### 8 4511 ####[facility] [place] [address], [facility] PCO2 36 mmHg Normal 35-45 [facility] Comment on above: Order Comment: on ar rival to CVU Performed By: #### 8 4511 ####[facility] [place] [address], [facility] PEEP 8.0 CMH20 Normal [facility] Comment on above: Order Comment: on ar rival to CVU Performed By: #### 8 4511 ####[facility] [place] [address], [facility] PF RATIO 99 mmHg Normal [facility] Comment on above: Order Comment: on ar rival to CVU Performed By: #### 8 4511 ####[facility] [place] [address], [facility] pH (Bld) 7.37 [pH] Normal 7.35-7.45 [facility] Comment on above: Order Comment: on ar rival to CVU Performed By: #### 8 4511 ####[facility], [place] [address] [place] [address] PRESSURE SUPPORT 10 Normal [facility] Comment on above: Order Comment: on ar rival to CVU Performed By: #### 8 4511 ####[facility] [place] [address], [facility] Respiratory rate 16 /min Normal [facility] Comment on above: Order Comment: on ar rival to CVU Performed By: #### 8 4511 ####[facility] [place] [address], [facility] TIDAL VOLUME (VT) CC 700 Normal [facility] Comment on above: Order Comment: on ar rival to CVU Performed By: #### 8 4511 ####[facility] [place] [address], [facility] BASE EXCESS -4 mmol/L Low -2-3 [facility] Comment on above: Performed By: #### 8 4511 ####[facility] [place] [address], [facility] DELIVERY SYSTEMS VENT Normal [facility] Comment on above: Performed By: #### 8 4511 ####[facility] [facility] [place] [address], [facility] FIO2 70 % Normal [facility] Comment on above: Performed By: #### 8 4511 ####[facility] [place] [address], [facility] HCO3 (Bld) [Moles/Vol] 23 mmol/L Normal 21-28 [facility] Comment on above: Performed By: #### 8 4511 ####[place] [address] [facility] [place] [address], [facility] IONIZED CALCIUM 1.14 mmol/L Normal 1.13-1.32 [facility] Comment on above: Performed By: #### 8 4511 ####[facility] [place] [address], [facility] MIN VOLUME 9.0 Normal [facility] Comment on above: Performed By: #### 8 4511 ####[facility] [facility] [address], [facility] MODALITY SIMV Normal [facility] Comment on above: Performed By: #### 8 4511 ####[facility] [place] [address], [facility] Oxygen (Bld) [Partial pressure] 70 mm[Hg] Low 83-108 [facility] Comment on above: Performed By: #### 8 4511 ####[facility] [place] [address], [facility] Oxygen saturation in Blood 92.5 % Low 94.0-97.0 [facility] Comment on above: Performed By: #### 8 4511 ####[facility] PCO2 48 mmHg High 35-45 [facility] Comment on above: Performed By: #### 8 4511 ####[facility] [place] [address], [facility] PEEP 8.0 CMH20 Normal [facility] Comment on above: Performed By: #### 8 4511 ####[facility] [place] [address], [facility] PF RATIO 100 mmHg Normal [facility] Comment on above: Performed By: #### 8 4511 ####[facility] pH (Bld) 7.28 [pH] Low 7.35-7.45 [facility] Comment on above: Performed By: #### 8 4511 ####[facility] PRESSURE SUPPORT 10 Normal [facility] Comment on above: Performed By: #### 8 4511 ####[facility] Respiratory rate 14 /min Normal [facility] Comment on above: Performed By: #### 8 4511 ####[facility] TIDAL VOLUME (VT) CC 550 Normal [facility] Comment on above: Performed By: #### 8 4511 ####[facility] BASIC METABOLIC PANELon 08- Calcium [Mass/Vol] 7.7 mg/dL Low 8.6-10.3 [facility] Comment on above: Order Comment: No: D o not add to previous draw Performed By: #### 1 0070, 31188, 30402 ####[facility] [place] [address], [place] Chloride [Moles/Vol] 103 mmol/L Normal 98-107 [facility] Comment on above: Order Comment: No: D o not add to previous draw Performed By: #### 1 0070, 88216, 60344 ####[facility] [place] [address], [place] CO2 [Moles/Vol] 21 mmol/L Normal 21-31 [facility] Comment on above: Order Comment: No: D o not add to previous draw Performed By: #### 1 0070, 62705, 84895 ####[facility] [place] [address], [facility] Creatinine [Mass/Vol] 1.15 mg/dL Normal 0.70-1.30 [facility] Comment on above: Order Comment: No: D o not add to previous draw Performed By: #### 1 0070, 77391, 30813 ####[facility] [place] [address], [place] GFR/1.73 sq M.predicted among blacks MDRD (S/P/Bld) [Vol rate/Area] mL/min/{1.73_m2} Normal >60 [facility] Comment on above: Order Comment: No: D o not add to previous draw Result Comment: Calc ulation may not be valid for patients over 70 years Performed By: #### 1 0070, 03867, 42435 ####[facility] [place] [address], [place] GFR/1.73 sq M.predicted among non-blacks MDRD (S/P/Bld) [Vol rate/Area] mL/min/{1.73_m2} Normal >60 [facility] Comment on above: Order Comment: No: D o not add to previous draw Result Comment: Calc ulation may not be valid for patients over 70 years Performed By: #### 1 0070, 87595, 92403 ####[facility] [place] [address], [place] Glucose [Mass/Vol] 224 mg/dL High 70-100 [facility] Comment on above: Order Comment: No: D o not add to previous draw Performed By: #### 1 0, 46302, 35535 ####[facility] [place] [address], [place] Potassium [Moles/Vol] 3.9 mmol/L Normal 3.5-5.1 [facility] Comment on above: Order Comment: No: D o not add to previous draw Performed By: #### 1 0, 04275, 15455 ####[facility] [place] [address], [place] Sodium [Moles/Vol] 134 mmol/L Low 136-145 [facility] Comment on above: Order Comment: No: D o not add to previous draw Performed By: #### 1 0, 49320, 92848 ####[facility] [place] [address], [place] Urea nitrogen [Mass/Vol] 22 mg/dL Normal 7-25 [facility] Comment on above: Order Comment: No: D o not add to previous draw Performed By: #### 1 0, 99011, 68337 ####[facility] [place] [address], [place] Calcium [Mass/Vol] 7.7 mg/dL Low 8.6-10.3 [facility] Comment on above: Performed By: #### 1 0, 51375, 54634 ####[facility] [place] [address], [place] Chloride [Moles/Vol] 105 mmol/L Normal 98-107 [facility] Comment on above: Performed By: #### 1 0, 33726, 83856 ####[facility] [place] [address], [place] CO2 [Moles/Vol] 24 mmol/L Normal 21-31 [facility] Comment on above: Performed By: #### 1 0070, 12216, 82236 ####[facility] [place] [address], [place] Creatinine [Mass/Vol] 0.81 mg/dL Normal 0.70-1.30 [facility] Comment on above: Performed By: #### 1 0, 60374, 48370 ####[facility] [place] [address], [place] GFR/1.73 sq M.predicted among blacks MDRD (S/P/Bld) [Vol rate/Area] mL/min/{1.73_m2} Normal >60 [facility] Comment on above: Result Comment: Calc ulation may not be valid for patients over 70 years Performed By: #### 1 0070, 07390, 84397 ####[facility] [place] [address], [place] GFR/1.73 sq M.predicted among non-blacks MDRD (S/P/Bld) [Vol rate/Area] mL/min/{1.73_m2} Normal >60 [facility] Comment on above: Result Comment: Calc ulation may not be valid for patients over 70 years Performed By: #### 1 0, 69016, 83508 ####[facility] [place] [address], [place] Glucose [Mass/Vol] 189 mg/dL High 70-100 [facility] Comment on above: Performed By: #### 1 0070, 36291, 65631 ####[facility] [place] [address], [place] Potassium [Moles/Vol] 4.3 mmol/L Normal 3.5-5.1 [facility] Comment on above: Performed By: #### 1 0070, 59094, 02258 ####[facility] [place] [address], [place] Sodium [Moles/Vol] 133 mmol/L Low 136-145 [facility] Comment on above: Performed By: #### 1 0070, 29465, 31764 ####[facility] [place] [address], [place] Urea nitrogen [Mass/Vol] 20 mg/dL Normal 7-25 [facility] Comment on above: Performed By: #### 1 0070, 43059, 77881 ####[facility] [place] [address], [place] Calcium [Mass/Vol] 8.7 mg/dL Normal 8.6-10.3 [facility] Comment on above: Order Comment: No: D o not add to previous draw Performed By: #### 0 0071, 24866, 35280 ####[facility] [place] [address], [place] Chloride [Moles/Vol] 103 mmol/L Normal 98-107 [facility] Comment on above: Order Comment: No: D o not add to previous draw Performed By: #### 0 0071, 01335, 24917 ####[facility] [place] [address], [place] CO2 [Moles/Vol] 26 mmol/L Normal 21-31 [facility] Comment on above: Order Comment: No: D o not add to previous draw Performed By: #### 0 0071, 92923, 11345 ####[facility] [place] [address], [place] Creatinine [Mass/Vol] 0.74 mg/dL Normal 0.70-1.30 [facility] Comment on above: Order Comment: No: D o not add to previous draw Performed By: #### 0 0071, 51653, 25676 ####[facility] [facility] [place] [address], [facility] GFR/1.73 sq M.predicted among blacks MDRD (S/P/Bld) [Vol rate/Area] mL/min/{1.73_m2} Normal >60 [facility] Comment on above: Order Comment: No: D o not add to previous draw Result Comment: Calc ulation may not be valid for patients over 70 years Performed By: #### 0 0071, 29374, 35149 ####[facility] [facility] [place] [address], [facility] GFR/1.73 sq M.predicted among non-blacks MDRD (S/P/Bld) [Vol rate/Area] mL/min/{1.73_m2} Normal >60 [facility] Comment on above: Order Comment: No: D o not add to previous draw Result Comment: Calc ulation may not be valid for patients over 70 years Performed By: #### 0 0071, 36816, 16036 ####[facility] [facility] [place] [address], [facility] Glucose [Mass/Vol] 107 mg/dL High 70-100 [facility] Comment on above: Order Comment: No: D o not add to previous draw Performed By: #### 0 0071, 62219, 82088 ####[facility] [facility] [place] [address], [facility] Potassium [Moles/Vol] 4.1 mmol/L Normal 3.5-5.1 [facility] Comment on above: Order Comment: No: D o not add to previous draw Performed By: #### 0 0071, 98584, 51826 ####[facility] [place] [address], [place] Sodium [Moles/Vol] 133 mmol/L Low 136-145 [facility] Comment on above: Order Comment: No: D o not add to previous draw Performed By: #### 0 0071, 10258, 76705 ####[facility] [facility] [place] [address], [facility] Urea nitrogen [Mass/Vol] 19 mg/dL Normal 7-25 [facility] Comment on above: Order Comment: No: D o not add to previous draw Performed By: #### 0 0071, 56664, 94461 ####[facility] [facility].[address] CBC COMPLETE BLOOD COUNTon 0 04-08-2021 Erythrocyte distribution width (RBC) [Ratio] 14.4 % Normal 11.5-15.0 [facility] Comment on above: Order Comment: No: D o not add to previous draw Performed By: #### 5 0608 ####[facility] [facility].[address] Hematocrit (Bld) [Volume fraction] 33.4 % Low 39.0-50.0 [facility] Comment on above: Order Comment: No: D o not add to previous draw Performed By: #### 5 0608 ####[place] [address] [facility].[address] Hemoglobin (Bld) [Mass/Vol] 10.9 g/dL Low 13.0-17.0 [facility] Comment on above: Order Comment: No: D o not add to previous draw Performed By: #### 5 0608 ####[facility] [facility] [place] [address], [facility] MCH (RBC) [Entitic mass] 30.4 pg Normal 27.0-33.0 [facility] Comment on above: Order Comment: No: D o not add to previous draw Performed By: #### 5 0608 ####[facility] [facility] [place] [address], [facility] MCHC (RBC) [Mass/Vol] 32.6 g/dL Normal 32.0-35.0 [facility] Comment on above: Order Comment: No: D o not add to previous draw Performed By: #### 5 0608 ####[facility] [facility] [place] [address], [facility] MCV (RBC) [Entitic vol] 93.3 fL Normal 82.0-98.0 [facility] Comment on above: Order Comment: No: D o not add to previous draw Performed By: #### 5 0608 ####[facility] [facility].[address] Nucleated RBC/100 WBC (Bld) [Ratio] 0 % Normal 0-0 [facility] Comment on above: Order Comment: No: D o not add to previous draw Performed By: #### 5 0608 ####[facility] [facility] [place] [address], [facility] PLAT CNT 228 10*3/uL Normal 150-400 [facility] Comment on above: Order Comment: No: D o not add to previous draw Performed By: #### 5 0608 ####[place] [address] [facility] [place] [address], [facility] RBC (Bld) [#/Vol] 3.58 10*6/uL Low 4.20-5.70 [facility] Comment on above: Order Comment: No: D o not add to previous draw Performed By: #### 5 0608 ####[facility] [facility] [place] [address], [facility] WBC (Bld) [#/Vol] 18.53 10*3/uL High 4.00-10.60 [facility] Comment on above: Order Comment: No: D o not add to previous draw Performed By: #### 5 0608 ####[facility] [facility] [place] [address], [facility] Erythrocyte distribution width (RBC) [Ratio] 14.6 % Normal 11.5-15.0 [facility] Comment on above: Performed By: #### 5 0608 ####[facility] Hematocrit (Bld) [Volume fraction] 35.5 % Low 39.0-50.0 [facility] Comment on above: Performed By: #### 5 0608 ####[address] Hemoglobin (Bld) [Mass/Vol] 11.5 g/dL Low 13.0-17.0 [facility] Comment on above: Performed By: #### 5 0608 ####[address] MCH (RBC) [Entitic mass] 30.5 pg Normal 27.0-33.0 [facility] Comment on above: Performed By: #### 5 0608 ####[address] MCHC (RBC) [Mass/Vol] 32.4 g/dL Normal 32.0-35.0 [facility] Comment on above: Performed By: #### 5 0608 ####[address] MCV (RBC) [Entitic vol] 94.2 fL Normal 82.0-98.0 [facility] Comment on above: Performed By: #### 5 0608 ####[address] Nucleated RBC/100 WBC (Bld) [Ratio] 0 % Normal 0-0 [facility] Comment on above: Performed By: #### 5 0608 ####[address] PLAT CNT 219 10*3/uL Normal 150-400 [facility] Comment on above: Performed By: #### 5 0608 ####[facility] [facility] [place] [address], [facility] RBC (Bld) [#/Vol] 3.77 10*6/uL Low 4.20-5.70 [facility] Comment on above: Performed By: #### 5 0608 ####[facility] [place] [address], [facility] WBC (Bld) [#/Vol] 14.37 10*3/uL High 4.00-10.60 [facility] Comment on above: Performed By: #### 5 0608 ####[facility] [facility].[address] Erythrocyte distribution width (RBC) [Ratio] 14.7 % Normal 11.5-15.0 [facility] Comment on above: Order Comment: No: D o not add to previous draw Performed By: #### 5 0608 ####[place] [address] Hematocrit (Bld) [Volume fraction] 40.7 % Normal 39.0-50.0 [facility] Comment on above: Order Comment: No: D o not add to previous draw Performed By: #### 5 0608 ####[facility] [facility].[address] Hemoglobin (Bld) [Mass/Vol] 13.5 g/dL Normal 13.0-17.0 [facility] Comment on above: Order Comment: No: D o not add to previous draw Performed By: #### 5 0608 ####[facility] MCH (RBC) [Entitic mass] 30.5 pg Normal 27.0-33.0 [facility] Comment on above: Order Comment: No: D o not add to previous draw Performed By: #### 5 0608 ####[facility] MCHC (RBC) [Mass/Vol] 33.2 g/dL Normal 32.0-35.0 [facility] Comment on above: Order Comment: No: D o not add to previous draw Performed By: #### 5 0608 ####[facility] MCV (RBC) [Entitic vol] 92.1 fL Normal 82.0-98.0 [facility] Comment on above: Order Comment: No: D o not add to previous draw Performed By: #### 5 0608 ####[place] [address] Nucleated RBC/100 WBC (Bld) [Ratio] 0 % Normal 0-0 [facility] Comment on above: Order Comment: No: D o not add to previous draw Performed By: #### 5 0608 ####[facility] PLAT CNT 233 10*3/uL Normal 150-400 [facility] Comment on above: Order Comment: No: D o not add to previous draw Performed By: #### 5 0608 ####[address] RBC (Bld) [#/Vol] 4.42 10*6/uL Normal 4.20-5.70 [facility] Comment on above: Order Comment: No: D o not add to previous draw Performed By: #### 5 0608 ####[facility] [place] [address] WBC (Bld) [#/Vol] 7.11 10*3/uL Normal 4.00-10.60 [facility] Comment on above: Order Comment: No: D o not add to previous draw Performed By: #### 5 0608 ####[facility] [place] [address], [facility] COOXIMETRYon 04-08-2021 COHB 1 % Normal [facility] Comment on above: Performed By: #### 7 0207 ####[facility] [place] [address], [facility] METHB 1 % Normal [facility] Comment on above: Performed By: #### 7 0207 ####[facility] [place] [address], [facility] Oxygen saturation in Blood 77.5 % High 65.0-75.0 [facility] Comment on above: Performed By: #### 7 0207 ####[facility] [place] [address], [facility] THB 10.7 g/dL Normal [facility] Comment on above: Performed By: #### 7 0207 ####[facility] [place] [address], [facility] FERRITINon 04-08-2021 Ferritin [Mass/Vol] 116 ng/mL Normal 24-336 [facility] Comment on above: Performed By: #### 1 0070, 39456, 93127 ####[facility] [facility] [place] [address], [facility] FIBRINOGENon 04-08-2021 FIBRINOGEN 362 mg/dL Normal 150-425 [facility] Comment on above: Performed By: #### 5 7307, 37757, 48570 ####[facility] [place] [address], [facility] LACTATE BLOODon 04-08-2021 Lactate [Moles/Vol] 3.7 mmol/L High .5-2.2 The [facility] Comment on above: Order Comment: No: D o not add to previous draw Result Comment: M-CR ITICAL RESULT(S) REVIEWED, CALLED TO AND READ BACK BY Kleber TRAN at 2203. Performed By: #### 1 0054 ####[facility] [place] [address], [facility] Lactate [Moles/Vol] 2.5 mmol/L High .5-2.2 The [facility] Comment on above: Order Comment: No: D o not add to previous draw Performed By: #### 1 0054 ####[facility] [place] [address], [place] Lactate [Moles/Vol] 1.0 mmol/L Normal .5-2.2 The [facility] Comment on above: Performed By: #### 1 0054 ####[facility] [place] [address], [place] MAGNESIUM BLOODon 04-08-2021 Magnesium [Mass/Vol] 2.3 mg/dL Normal 1.9-2.7 [facility] Comment on above: Order Comment: No: D o not add to previous draw Performed By: #### 1 0070, 96876, 00977 ####[facility] [place] [address], [place] Magnesium [Mass/Vol] 1.9 mg/dL Normal 1.9-2.7 [facility] Comment on above: Performed By: #### 1 0070, 31594, 65799 ####[facility] [place] [address], [place] Magnesium [Mass/Vol] 2.2 mg/dL Normal 1.9-2.7 [facility] Comment on above: Order Comment: No: D o not add to previous draw Performed By: #### 0 0071, 61512, 29740 ####[facility] [place] [address], [place] PERFUSION BLOOD PANELon 03-24 BASE EXCESS -3.0 mmol/L Low -2.0-3.0 The [facility] Comment on above: Performed By: #### 3 0738 ####[facility] [place] [address], [place] Glucose [Mass/Vol] 193 mg/dL High 70-105 [facility] Comment on above: Performed By: #### 3 0738 ####[facility] [place] [address], [facility] Hematocrit (Bld) [Volume fraction] 36 % Low 38-51 [facility] Comment on above: Performed By: #### 3 0738 ####[facility] [place] [address], [facility] Hemoglobin (Bld) [Mass/Vol] 12.2 g/dL Normal 12.0-17.0 [facility] Comment on above: Performed By: #### 3 0738 ####[facility] [place] [address], [facility] IONIZED CALCIUM 1.22 mmol/L Normal 1.12-1.32 [facility] Comment on above: Performed By: #### 3 0738 ####[facility] [place] [address], [facility] Oxygen (Bld) [Partial pressure] 131.0 mm[Hg] High 80.0-105.0 [facility] Comment on above: Performed By: #### 3 0738 ####[facility] [id number], [facility] PCO2 51.6 mmHg High 35.0-45.0 [facility] Comment on above: Performed By: #### 3 0738 ####[facility] [place] [address], [place] pH (Bld) 7.28 [pH] Low 7.35-7.45 [facility] Comment on above: Performed By: #### 3 0738 ####[facility] [place] [address], [facility] Potassium [Moles/Vol] 4.4 mmol/L Normal 3.5-4.9 [facility] Comment on above: Performed By: #### 3 0738 ####[facility] [place] [address], [facility] Sodium [Moles/Vol] 139 mmol/L Normal 138-146 [facility] Comment on above: Performed By: #### 3 0738 ####[facility] [place] [address], [facility] BASE EXCESS -2.0 mmol/L Normal -2.0-3.0 [facility] Comment on above: Performed By: #### 3 0738 ####[place] [address] [facility] [place] [address], [facility] Glucose [Mass/Vol] 156 mg/dL High 70-105 [facility] Comment on above: Performed By: #### 3 0738 ####[place] [address] [facility] [place] [address], [facility] Hematocrit (Bld) [Volume fraction] 36 % Low 38-51 [facility] Comment on above: Performed By: #### 3 0738 ####[facility] [facility] [place] [address], [facility] Hemoglobin (Bld) [Mass/Vol] 12.2 g/dL Normal 12.0-17.0 [facility] Comment on above: Performed By: #### 3 0738 ####[place] [address] [id number], [facility] IONIZED CALCIUM 1.17 mmol/L Normal 1.12-1.32 [facility] Comment on above: Performed By: #### 3 0738 ####[facility] [place] [address], [facility] Oxygen (Bld) [Partial pressure] 196.0 mm[Hg] High 80.0-105.0 [facility] Comment on above: Performed By: #### 3 0738 ####[facility] [place] [address], [place] PCO2 46.9 mmHg High 35.0-45.0 [facility] Comment on above: Performed By: #### 3 0738 ####[facility] [place] [address], [facility] pH (Bld) 7.33 [pH] Low 7.35-7.45 [facility] Comment on above: Performed By: #### 3 0738 ####[facility] [place] [address], [place] Potassium [Moles/Vol] 4.5 mmol/L Normal 3.5-4.9 [facility] Comment on above: Performed By: #### 3 0738 ####[facility] [place] [address], [place] Sodium [Moles/Vol] 139 mmol/L Normal 138-146 [facility] Comment on above: Performed By: #### 3 0738 ####[facility] [place] [address], [place] BASE EXCESS -1.0 mmol/L Normal -2.0-3.0 [facility] Comment on above: Performed By: #### 3 0738 ####[facility] [place] [address], [place] Glucose [Mass/Vol] 133 mg/dL High 70-105 [facility] Comment on above: Performed By: #### 3 0738 ####[facility] Hematocrit (Bld) [Volume fraction] 37 % Low 38-51 [facility] Comment on above: Performed By: #### 3 0738 ####[facility] [facility].[address] Hemoglobin (Bld) [Mass/Vol] 12.6 g/dL Normal 12.0-17.0 [facility] Comment on above: Performed By: #### 3 0738 ####[address] IONIZED CALCIUM 1.19 mmol/L Normal 1.12-1.32 [facility] Comment on above: Performed By: #### 3 0738 ####[address] Oxygen (Bld) [Partial pressure] 184.0 mm[Hg] High 80.0-105.0 [facility] Comment on above: Performed By: #### 3 0738 ####[address] PCO2 46.6 mmHg High 35.0-45.0 [facility] Comment on above: Performed By: #### 3 0738 ####[place] [address] [facility].[address] pH (Bld) 7.34 [pH] Low 7.35-7.45 [facility] Comment on above: Performed By: #### 3 0738 ####[address] Potassium [Moles/Vol] 4.3 mmol/L Normal 3.5-4.9 [facility] Comment on above: Performed By: #### 3 0738 ####[address] [place] [address], [facility] Sodium [Moles/Vol] 139 mmol/L Normal 138-146 [facility] Comment on above: Performed By: #### 3 0738 ####[facility] [place] [address], [facility] BASE EXCESS -1.0 mmol/L Normal -2.0-3.0 [facility] Comment on above: Performed By: #### 3 0738 ####[place] [address] [place] [address], [facility] Glucose [Mass/Vol] 118 mg/dL High 70-105 [facility] Comment on above: Performed By: #### 3 0738 ####[address] [place] [address], [facility] Hematocrit (Bld) [Volume fraction] 39 % Normal 38-51 [facility] Comment on above: Performed By: #### 3 0738 ####[place] [address] [facility] [place] [address], [facility] Hemoglobin (Bld) [Mass/Vol] 13.3 g/dL Normal 12.0-17.0 [facility] Comment on above: Performed By: #### 3 0738 ####[place] [address] [facility] [place] [address], [facility] IONIZED CALCIUM 1.17 mmol/L Normal 1.12-1.32 [facility] Comment on above: Performed By: #### 3 0738 ####[place] [address] [facility] [place] [address], [facility] Oxygen (Bld) [Partial pressure] 96.0 mm[Hg] Normal 80.0-105.0 [facility] Comment on above: Performed By: #### 3 0738 ####[address] [place] [address], [facility] PCO2 41.2 mmHg Normal 35.0-45.0 [facility] Comment on above: Performed By: #### 3 0738 ####[facility] [place] [address], [facility] pH (Bld) 7.38 [pH] Normal 7.35-7.45 [facility] Comment on above: Performed By: #### 3 0738 ####[facility] [place] [address], [facility] Potassium [Moles/Vol] 4.3 mmol/L Normal 3.5-4.9 [facility] Comment on above: Performed By: #### 3 0738 ####[facility] [place] [address], [place] Sodium [Moles/Vol] 139 mmol/L Normal 138-146 [facility] Comment on above: Performed By: #### 3 0738 ####[facility] [place] [address], [facility] PHOSPHORUS BLOODon Phosphate [Mass/Vol] 4.0 mg/dL Normal 2.5-5.0 [facility] Comment on above: Order Comment: No: D o not add to previous draw Performed By: #### 1 0070, 25891, 54345 ####[facility] [place] [address], [facility] Phosphate [Mass/Vol] 3.8 mg/dL Normal 2.5-5.0 [facility] Comment on above: Order Comment: No: D o not add to previous draw Performed By: #### 0 0071, 23506, 04113 ####[facility] [place] [address], [place] POC GLUCOSE LABon 04-08-2021 Glucose [Mass/Vol] 252 mg/dL High 70-100 [facility] Comment on above: Performed By: #### 8 5499 ####[facility] [place] [address], [place] Glucose [Mass/Vol] 240 mg/dL High 70-100 [facility] Comment on above: Performed By: #### 8 5499 ####[facility] [place] [address], [place] Glucose [Mass/Vol] 126 mg/dL High 70-100 [facility] Comment on above: Performed By: #### 8 5499 ####[facility] [place] [address], [place] Glucose [Mass/Vol] 178 mg/dL High 70-100 [facility] Comment on above: Performed By: #### 8 5499 ####[facility] [place] [address], [place] Glucose [Mass/Vol] 195 mg/dL High 70-100 [facility] Comment on above: Performed By: #### 8 5499 ####[facility] [place] [address], [place] Glucose [Mass/Vol] 113 mg/dL High 70-100 [facility] Comment on above: Performed By: #### 8 5499 ####[facility] [place] [address], [place] Glucose [Mass/Vol] 118 mg/dL High 70-100 [facility] Comment on above: Performed By: #### 8 5499 ####[facility] [place] [address], [place] PORTABLE CHEST 1 VIEWon 08 PORTABLE CHEST 1 VIEW Normal [facility] Comment on above: Order Comment: Check Chest Tube Position, ON ARRIVAL TO CVU PROTHROMBIN TIMEon INR Coag (PPP) [Relative time] 1.20 {INR} High 0.91-1.16 [facility] Comment on above: Order Comment: No: D o not add to previous draw Result Comment: [facility] P RECOMMENDED INR FOR WARFARIN THERAPY CONDITION INRPROPHYLAXIS OF VENOUS THROMBOSIS 2-3(HIGH-RISK SURGERY)TREATMENT OF VENOUS THROMBOSIS 2-3TREATMENT OF PULMONARY EMBOLISM 2-3PREVENTION OF SYSTEMIC EMBOLISM: 2-3 ACUTE MYOCARDIAL INFARCTION TISSUE HEART VALVES VALVULAR HEART DISEASE ATRIAL FIBRILLATION RECURRENT SYSTEMIC EMBOLISMMECHANICAL HEART VALVE 2.5-3.5 FROM: ORAL ANTICOAGULANTS. MECHANISM OF ACTION, CLINICALEFFECTIVENESS, AND OPTIMAL THERAPEUTIC RANGE. [id number];108:231S-246S. Performed By: #### 5 6101, 25261 ####[facility] [facility] [place] [address], [facility] PT Coag (PPP) [Time] 15.2 s High 12.3-14.8 [facility] Comment on above: Order Comment: No: D o not add to previous draw Result Comment: ALL RESULTS MUST BE INTERPRETED WITH RESPECT TO BLOOD DRAWING ARTIFACTOR DILUTION ERROR OF ANTICOAGULANT AT THE TIME OF SAMPLING. Performed By: #### 5 6101, 53113 ####[facility] [facility] [place] [address], [facility] INR Coag (PPP) [Relative time] 1.23 {INR} High 0.91-1.16 [facility] Comment on above: Result Comment: [facility] P RECOMMENDED INR FOR WARFARIN THERAPY CONDITION INRPROPHYLAXIS OF VENOUS THROMBOSIS 2-3(HIGH-RISK SURGERY)TREATMENT OF VENOUS THROMBOSIS 2-3TREATMENT OF PULMONARY EMBOLISM 2-3PREVENTION OF SYSTEMIC EMBOLISM: 2-3 ACUTE MYOCARDIAL INFARCTION TISSUE HEART VALVES VALVULAR HEART DISEASE ATRIAL FIBRILLATION RECURRENT SYSTEMIC EMBOLISMMECHANICAL HEART VALVE 2.5-3.5 FROM: ORAL ANTICOAGULANTS. MECHANISM OF ACTION, CLINICALEFFECTIVENESS, AND OPTIMAL THERAPEUTIC RANGE. [id number];108:231S-246S. Performed By: #### 5 7307, 87303, 82832 ####[facility] PT Coag (PPP) [Time] 15.5 s High 12.3-14.8 [facility] Comment on above: Result Comment: ALL RESULTS MUST BE INTERPRETED WITH RESPECT TO BLOOD DRAWING ARTIFACTOR DILUTION ERROR OF ANTICOAGULANT AT THE TIME OF SAMPLING. Performed By: #### 5 7307, 98934, 38403 ####[facility] [facility].[address] INR Coag (PPP) [Relative time] 1.05 {INR} Normal 0.91-1.16 [facility] Comment on above: Order Comment: No: D o not add to previous draw Result Comment: [facility] P RECOMMENDED INR FOR WARFARIN THERAPY CONDITION INRPROPHYLAXIS OF VENOUS THROMBOSIS 2-3(HIGH-RISK SURGERY)TREATMENT OF VENOUS THROMBOSIS 2-3TREATMENT OF PULMONARY EMBOLISM 2-3PREVENTION OF SYSTEMIC EMBOLISM: 2-3 ACUTE MYOCARDIAL INFARCTION TISSUE HEART VALVES VALVULAR HEART DISEASE ATRIAL FIBRILLATION RECURRENT SYSTEMIC EMBOLISMMECHANICAL HEART VALVE 2.5-3.5 FROM: ORAL ANTICOAGULANTS. MECHANISM OF ACTION, CLINICALEFFECTIVENESS, AND OPTIMAL THERAPEUTIC RANGE. [id number];108:231S-246S. Performed By: #### 5 6101 ####[facility] PT Coag (PPP) [Time] 13.7 s Normal 12.3-14.8 [facility] Comment on above: Order Comment: No: D o not add to previous draw Result Comment: ALL RESULTS MUST BE INTERPRETED WITH RESPECT TO BLOOD DRAWING ARTIFACTOR DILUTION ERROR OF ANTICOAGULANT AT THE TIME OF SAMPLING. Performed By: #### 5 6101 ####[facility] TROPONIN-Ion 04-08-2021 Troponin I.cardiac [Mass/Vol] 0.34 ng/mL Critically high 0.00-0.04 [facility] Comment on above: Order Comment: No: D o not add to previous draw Result Comment: M-TR OPCINDA INITIAL CRITICAL HIGH; RESPUN AND RETESTEDM-CRITICAL RESULT(S) REVIEWED, CALLED TO AND READ BACK BY Kleber TRAN at 2228.REFERENCE RANGES: 0.00 - 0.04 ng/ml NORMAL 0.05 - 0.50 ng/ml INDETERMINATE > 0.50 ng/ml CONSISTENT WITH AN M.I. Performed By: #### 3 2800 ####[facility] [place] [address], [facility] POC GLUCOSE LABon 04-07-2021 Glucose [Mass/Vol] 121 mg/dL High 70-100 [facility] Comment on above: Performed By: #### 8 5499 ####[facility] [facility] [place] [address], [facility] Glucose [Mass/Vol] 165 mg/dL High 70-100 [facility] Comment on above: Performed By: #### 8 5499 ####[facility] [facility] [place] [address], [facility] Glucose [Mass/Vol] 109 mg/dL High 70-100 [facility] Comment on above: Performed By: #### 8 5499 ####[facility] [facility].[address] POC SARS COV2 ANTIGEN NEGATI VEon 04-07-2021 POC SARS COV2 ANTIGEN NEG Negative Normal NEGATIVE [facility] Comment on above: Result Comment: Nega tive results from patients with symptom onset beyond seven days,should be treated presumptive and confirmation with a molecular assay,if necessary, for patient management, may be performed. Negative resultsdo not rule out SARS-CoV-2 infection and should not be used as the solebasis for treatment or patient management decisions, including infectioncontrol decisions. Negative results should be considered in the contextof a patient?s recent exposures, history and the presence of clinicalsigns and symptoms consistent with COVID-19.The [employer] COVID-19 Ag Card is a lateral flow immunoassay intended forthe qualitative detection of nucleocapsid protein antigen peeyTADD-FvY-1 in direct nasal swabs from individuals within the first sevendays of symptom onset. Testing is limited to laboratories certifiedunder the Clinical Laboratory Improvement Amendments of 1988 (CLIA), 42U.S.C. ???263a, that meet the requirements to perform moderate, high orwaived complexity tests. This test is authorized for use at the Point ofCare (POC), i.e., in patient care settings operating under a CLIACertificate of Waiver, Certificate of Compliance, or Certificate ofAccreditation. Performed By: #### 3 1977 ####[facility] [facility] [place] [address], [facility] Pulmonary Functionon 021 Pulmonary Function Normal The [facility] RBC'S 4 UNITSon 04-07-2021 CROSSMATCH INTERP 1 COMP Normal The [facility] Comment on above: Performed By: #### 8 6004 ####[facility] [place] [address], [facility] CROSSMATCH INTERP 2 COMP Normal The [facility] Comment on above: Performed By: #### 8 6004 ####[facility] [place] [address], [facility] CROSSMATCH INTERP 3 COMP Normal The [facility] Comment on above: Performed By: #### 8 6004 ####[facility] [facility] [place] [address], [facility] CROSSMATCH INTERP 4 COMP Normal The [facility] Comment on above: Performed By: #### 8 6004 ####[facility] [facility] [place] [address], [facility] PRODUCT CODE 1 E0336 Normal The [facility] Comment on above: Performed By: #### 8 6004 ####[facility] [place] [place] [address], [place] PRODUCT CODE 2 E0336 Normal The [facility] Comment on above: Performed By: #### 8 6004 ####[facility] [facility] [place] [address], [place] PRODUCT CODE 3 E0336 Normal The [facility] Comment on above: Performed By: #### 8 6004 ####[facility] [place] [address], [place] PRODUCT CODE 4 E0336 Normal The [facility] Comment on above: Performed By: #### 8 6004 ####[facility] [facility] [place], [place] [address] PRODUCT STATUS 1 RE Normal The [facility] Comment on above: Result Comment: Resu lt changed by IF on 04/08/2021 12:37. The previous value was XM.Result changed by IF on 04/08/2021 16:53. The previous value was IS.Result changed by IF on 04/11/2021 11:14. The previous value was XM. Performed By: #### 8 6004 ####[facility] [facility] [place] [address], [facility] PRODUCT STATUS 2 RE Normal The [facility] Comment on above: Result Comment: Resu lt changed by IF on 04/08/2021 12:37. The previous value was XM.Result changed by IF on 04/08/2021 16:53. The previous value was IS.Result changed by IF on 04/11/2021 11:14. The previous value was XM. Performed By: #### 8 6004 ####[place] [address] [facility] [place] [address], [facility] PRODUCT STATUS 3 RE Normal The [facility] Comment on above: Result Comment: Resu lt changed by IF on 04/08/2021 12:37. The previous value was XM.Result changed by IF on 04/08/2021 16:53. The previous value was IS.Result changed by IF on 04/11/2021 11:14. The previous value was XM. Performed By: #### 8 6004 ####[place] [address] [facility] [place] [address], [facility] PRODUCT STATUS 4 RE Normal The [facility] Comment on above: Result Comment: Resu lt changed by IF on 04/08/2021 12:37. The previous value was XM.Result changed by IF on 04/08/2021 16:53. The previous value was IS.Result changed by IF on 04/11/2021 11:14. The previous value was XM. Performed By: #### 8 6004 ####[facility] [facility], [place] [id number] [place] [address] UNIT ABO 1 O Normal [facility] Comment on above: Performed By: #### 8 6004 ####[facility] [facility], [place] [address] [place] [address] UNIT ABO 2 O Normal [facility] Comment on above: Performed By: #### 8 6004 ####[facility] [facility], [place] [address] [place] [address] UNIT ABO 3 O Normal [facility] Comment on above: Performed By: #### 8 6004 ####[facility] [facility], [place] [address] [place] [address] UNIT ABO 4 O Normal [facility] Comment on above: Performed By: #### 8 6004 ####[facility] [facility].[address] UNIT ID 1 [id number] Normal The [facility] Comment on above: Performed By: #### 8 6004 ####[facility] [facility].[address] UNIT ID 2 [id number] Normal [facility] Comment on above: Performed By: #### 8 6004 ####[facility] [facility], [place] [address] [place] [address] UNIT ID 3 [id number] Normal [facility] Comment on above: Performed By: #### 8 6004 ####[facility] [facility] [place] [address], [facility] UNIT ID 4 [id number] Normal The [facility] Comment on above: Performed By: #### 8 6004 ####[facility] [facility], [place] [address] UNIT RH 1 Positive Normal [facility] Comment on above: Performed By: #### 8 6004 ####[facility] [place] [address], [facility] UNIT RH 2 Positive Normal [facility] Comment on above: Performed By: #### 8 6004 ####[facility] [place] [address], [facility] UNIT RH 3 Positive Normal [facility] Comment on above: Performed By: #### 8 6004 ####[facility] [place] [address], [facility] UNIT RH 4 Positive Normal [facility] Comment on above: Performed By: #### 8 6004 ####[facility] [place] [address], [facility] TYPE AND SCREENon 04-07-2021 ABO INTERPRETATION O Normal The [facility] Comment on above: Performed By: #### 6 2586 ####[facility] [place] [address], [facility] RH INTERPRETATION Positive Normal The [facility] Comment on above: Performed By: #### 6 2586 ####[facility] [place] [address], [facility] *MRSA/MSSA DNA NASALon 04-06 *MRSA/MSSA DNA NASAL Clinical Report: (D) Specimen: NASAL SWAB Collected: 04/06/2021 12:43 Status: Final Last Updated: 04/06/2021 16:01 MSSA DNA (Final) Negative MRSA DNA (Final) Negative Normal [facility] Comment on above: Performed By: #### 3 1595 ####[facility] [place] [address], [facility] BASIC METABOLIC PANELon 08- Calcium [Mass/Vol] 8.9 mg/dL Normal 8.6-10.3 [facility] Comment on above: Order Comment: No: D o not add to previous draw Performed By: #### 1 0, 64671 ####[facility] [place] [address], [facility] Chloride [Moles/Vol] 103 mmol/L Normal 98-107 [facility] Comment on above: Order Comment: No: D o not add to previous draw Performed By: #### 1 0, 17156 ####[facility] [place] [address], [place] CO2 [Moles/Vol] 26 mmol/L Normal 21-31 [facility] Comment on above: Order Comment: No: D o not add to previous draw Performed By: #### 1 0, 75886 ####[facility] [place] [address], [facility] Creatinine [Mass/Vol] 0.78 mg/dL Normal 0.70-1.30 [facility] Comment on above: Order Comment: No: D o not add to previous draw Performed By: #### 1 69, 13027 ####[facility] [place] [address], [facility] GFR/1.73 sq M.predicted among blacks MDRD (S/P/Bld) [Vol rate/Area] mL/min/{1.73_m2} Normal >60 [facility] Comment on above: Order Comment: No: D o not add to previous draw Result Comment: Calc ulation may not be valid for patients over 70 years Performed By: #### 1 69, 66110 ####[facility] [place] [address], [facility] GFR/1.73 sq M.predicted among non-blacks MDRD (S/P/Bld) [Vol rate/Area] mL/min/{1.73_m2} Normal >60 [facility] Comment on above: Order Comment: No: D o not add to previous draw Result Comment: Calc ulation may not be valid for patients over 70 years Performed By: #### 1 69, 04847 ####[facility] [facility].[address] Glucose [Mass/Vol] 101 mg/dL High 70-100 [facility] [facility] Comment on above: Order Comment: No: D o not add to previous draw Performed By: #### 1 69, [id number] ####[facility]3000 [facility].[address] Potassium [Moles/Vol] 4.1 mmol/L Normal 3.5-5.1 [facility] Comment on above: Order Comment: No: D o not add to previous draw Performed By: #### 1 69, [id number] ####[place] [id number] [facility].[address] Sodium [Moles/Vol] 134 mmol/L Low 136-145 [facility] Comment on above: Order Comment: No: D o not add to previous draw Performed By: #### 1 69, [id number] ####[place] [id number] [facility].[address] Urea nitrogen [Mass/Vol] 20 mg/dL Normal 7-25 [facility] Comment on above: Order Comment: No: D o not add to previous draw Performed By: #### 1 69, [id number] ####[place] [id number] [facility].[address] CBC COMPLETE BLOOD COUNTon 0 8- Erythrocyte distribution width (RBC) [Ratio] 15.3 % High 11.5-15.0 [facility] Comment on above: Order Comment: No: D o not add to previous draw Performed By: #### 5 0608 ####[place] [id number] [facility].[address] Hematocrit (Bld) [Volume fraction] 43.0 % Normal 39.0-50.0 [facility] Comment on above: Order Comment: No: D o not add to previous draw Performed By: #### 5 0608 ####[facility]3000 [facility].[address] Hemoglobin (Bld) [Mass/Vol] 14.3 g/dL Normal 13.0-17.0 [facility] Comment on above: Order Comment: No: D o not add to previous draw Performed By: #### 5 0608 ####[facility] MCH (RBC) [Entitic mass] 30.6 pg Normal 27.0-33.0 [facility] Comment on above: Order Comment: No: D o not add to previous draw Performed By: #### 5 0608 ####[facility] MCHC (RBC) [Mass/Vol] 33.3 g/dL Normal 32.0-35.0 [facility] Comment on above: Order Comment: No: D o not add to previous draw Performed By: #### 5 0608 ####[place] [address] [facility].[address] MCV (RBC) [Entitic vol] 92.1 fL Normal 82.0-98.0 [facility] Comment on above: Order Comment: No: D o not add to previous draw Performed By: #### 5 0608 ####[facility] Nucleated RBC/100 WBC (Bld) [Ratio] 0 % Normal 0-0 [facility] Comment on above: Order Comment: No: D o not add to previous draw Performed By: #### 5 0608 ####[place] [address], [facility] PLAT CNT 238 10*3/uL Normal 150-400 [facility] Comment on above: Order Comment: No: D o not add to previous draw Performed By: #### 5 0608 ####[facility]3000 [facility] [place] [address], [facility] RBC (Bld) [#/Vol] 4.67 10*6/uL Normal 4.20-5.70 The [facility] Comment on above: Order Comment: No: D o not add to previous draw Performed By: #### 5 0608 ####[facility] [facility] [place] [address], [place] WBC (Bld) [#/Vol] 6.86 10*3/uL Normal 4.00-10.60 The [facility] Comment on above: Order Comment: No: D o not add to previous draw Performed By: #### 5 0608 ####[facility] [facility] [place] [address], [facility] MAGNESIUM BLOODon 04-06-2021 Magnesium [Mass/Vol] 2.0 mg/dL Normal 1.9-2.7 [facility] Comment on above: Order Comment: No: D o not add to previous draw Performed By: #### 1 0070, [id number] ####[facility] [facility] [place] [address], [facility] POC GLUCOSE LABon 04-06-2021 Glucose [Mass/Vol] 118 mg/dL High 70-100 [facility] Comment on above: Performed By: #### 8 5499 ####[facility] [facility] [place] [address], [place] Glucose [Mass/Vol] 108 mg/dL High 70-100 [facility] Comment on above: Performed By: #### 8 5499 ####[facility] [facility] [place] [address], [place] Glucose [Mass/Vol] 114 mg/dL High 70-100 [facility] Comment on above: Performed By: #### 8 5499 ####[facility] [facility] [place] [address], [facility] Glucose [Mass/Vol] 126 mg/dL High 70-100 [facility] Comment on above: Performed By: #### 8 5499 ####[facility] [facility] [place] [address], [facility] URINALYSIS REFLEXon 04-06-20 21 Appearance (U) CLEAR Normal CLEAR [facility] Comment on above: Order Comment: No: D o not add to previous drawCriteria for reflexing a culture was not met. Please call the lab [phone] within 24 hours of collection time if culture is needed Performed By: #### 3 0965 ####[facility] [place] [address], [facility] Bilirubin Ql (U) Negative Normal NEGATIVE The [facility] Comment on above: Order Comment: No: D o not add to previous drawCriteria for reflexing a culture was not met. Please call the lab [phone] within 24 hours of collection time if culture is needed Performed By: #### 3 0965 ####[facility] [place] [address], [facility] Color (U) YELLOW Normal YELLOW [facility] Comment on above: Order Comment: No: D o not add to previous drawCriteria for reflexing a culture was not met. Please call the lab [id number] within 24 hours of collection time if culture is needed Performed By: #### 3 0965 ####[facility] [facility] [place] [address], [facility] Glucose Ql (U) Negative Normal NEGATIVE [facility] Comment on above: Order Comment: No: D o not add to previous drawCriteria for reflexing a culture was not met. Please call the lab [id number] within 24 hours of collection time if culture is needed Performed By: #### 3 0965 ####[facility]3000 [facility].[address] Hemoglobin Ql (U) Negative Normal NEGATIVE [facility] Comment on above: Order Comment: No: D o not add to previous drawCriteria for reflexing a culture was not met. Please call the lab [phone] within 24 hours of collection time if culture is needed Performed By: #### 3 0965 ####[facility] [facility] [place] [address], [facility] KETONE Negative Normal NEGATIVE [facility] Comment on above: Order Comment: No: D o not add to previous drawCriteria for reflexing a culture was not met. Please call the lab [email or web address] within 24 hours of collection time if culture is needed Performed By: #### 3 0965 ####[facility] [place] [address], [facility] LEUK JESS Negative Normal NEGATIVE [facility] Comment on above: Order Comment: No: D o not add to previous drawCriteria for reflexing a culture was not met. Please call the lab [id number] within 24 hours of collection time if culture is needed Performed By: #### 3 0965 ####[place] [address] [address] MICRO NOT DONE Normal [facility] Comment on above: Order Comment: No: D o not add to previous drawCriteria for reflexing a culture was not met. Please call the lab [id number] within 24 hours of collection time if culture is needed Result Comment: Micr oscopics not performed on urines withnegative chemical reactions unless requested in original order Performed By: #### 3 0965 ####[facility] [facility] [place] [address], [facility] Nitrite Ql (U) Negative Normal NEGATIVE [facility] Comment on above: Order Comment: No: D o not add to previous drawCriteria for reflexing a culture was not met. Please call the lab [id number] within 24 hours of collection time if culture is needed Performed By: #### 3 0965 ####[facility]3000 [facility].[address] pH (U) 6.0 [pH] Normal 5.0-8.0 [facility] Comment on above: Order Comment: No: D o not add to previous drawCriteria for reflexing a culture was not met. Please call the lab [id number] within 24 hours of collection time if culture is needed Performed By: #### 3 0965 ####[facility] Protein Ql (U) Negative Normal NEGATIVE [facility] Comment on above: Order Comment: No: D o not add to previous drawCriteria for reflexing a culture was not met. Please call the lab [id number] within 24 hours of collection time if culture is needed Performed By: #### 3 0965 ####[facility] SPEC GRAV 1.019 Normal 1.015-1.020 [facility] Comment on above: Order Comment: No: D o not add to previous drawCriteria for reflexing a culture was not met. Please call the lab [id number] within 24 hours of collection time if culture is needed Performed By: #### 3 0965 ####[facility] Encounters Encounter Date Encounter Type Care Provider Facility Start: 06-05-2023 End: 06-05-2023 ambulatory [facility] Start: 05-18-2023 End: 05-18-2023 ambulatory [facility] Facility[facility] Start: 01-06-2023 End: 01-06-2023 ambulatory [facility] Start: 10-10-2022 End: 10-10-2022 ambulatory [facility] Start: 09-03-2022 End: 09-03-2022 ambulatory Moshe Garcia Other [employer] Other Start: 09-03-2022 Office outpatient ne w 45 minutes [facility] Start: 08-18-2022 End: 08-20-2022 Evaluation and management of inpatient DR MAL BARNES Facility:[facility] Start: 08-05-2022 End: 08-06-[address] CATINA SALAZAR Facility:[facility] Start: 08-04-2022 End: 08-05-[address] CATINA SALAZAR Facility:[facility] Start: 07-14-2022 End: 07-15-[address] CATINA SALAZAR Facility:[facility] Start: 05-08-2022 End: 05-09-[address] CATINA SALAZAR Facility:[facility] Start: 05-05-2022 End: 05-06-[address] CATINA SALAZAR Facility:[facility] Start: 04-14-2022 End: 04-15-2022 ambulatory ARIELLA GALLEGO Facility:[facility] Start: 12-15-2021 ambulatory ARIELLA GALLEGO Facility :[facility] Start: 05-15-2021 End: 06-02-2021 Evaluation and management of inpatient MAL BARNES Facility:[facility] Procedures Date Procedure Procedure Detail Performing Clinician Start: 05-24-2021 Antibody screen MAL ABRNES Comment on above: Performed By: #### 6 2586 ####[facility] [place] [address], [facility] Start: 05-23-2021 EXCISION OF STERNUM, OPEN APPROACH AKANKSHA UP Start: 05-23-2021 TRANSFER LEFT THORAX MUSCLE WITH SKIN, SUBCU, OPEN APPROACH AKANKSHA UP Start: 05-23-2021 TRANSFER RIGHT THORA X MUSCLE WITH SKIN, SUBCU, OPEN APPROACH AKANKSHA UP Start: 05-22-2021 TRANSFUSE NONAUT RED BLOOD CELLS IN PERIPH VEIN, PERC GUDELIA MASROOR Start: 05-20-2021 CHANGE PRESSURE DRES SING ON CHEST WALL AKANKSHA UP Start: 05-20-2021 Antibody screen MAL BARNES Comment on above: Performed By: #### 6 2586 ####[facility] [place], [place] [id number] [place] [address] Start: 05-16-2021 EXCISION OF CHEST SK IN, EXTERNAL APPROACH AKANKSHA UP Start: 05-16-2021 RESPIRATORY VENTILAT ION, LESS THAN 24 CONSECUTIVE HOURS GUDELIA BARNES Start: 05-15-2021 Antibody screen MAL MOLLY Comment on above: Performed By: #### 6 2586 ####[facility] [place] [address], [facility] Start: 04-07-2021 Antibody screen MAL MOLLY Comment on above: Performed By: #### 6 2586 ####[facility].[place], [place] [id number] [place] [address] Payers Date Payer Category Payer Private Health Insurance [id number] Self-pay 1945 Unknown [id number] 2.16.8 [id number] 1945 Unknown [id number] 2.16.84 [id number] 1944 Unknown [id number] 2.16.84 [id number] 1944 Unknown [id number] 2.16.84 [id number] 1944 Unknown [id number] 2.16.84 [id number] 1944 Unknown [id number] 2.16.84 [id number] 1944 Unknown [id number] 2.16.84 [id number] 1944 Unknown [id number] 2.16.84 [id number] 1944 Unknown [id number] 2.16.84 [id number] 1944 Unknown [id number] 2.16.84 [id number] Unknown 1936 2.16.8 [id number] Social History Date Type Detail Facility Sex Assigned At [facility] [employer] Other Clinical Notes 10-11-2020 to 06-05-2023 Note Date & Type Note Facility 06-05-2023 Note [facility] - [facility] Subjective Arianne Mcqueen is a 78 y.o. year old male patient being seen for Follow-up, Coronary Artery Disease, and Congestive Heart Failure Patient Active Problem List Diagnosis Multiple vessel coronary artery disease Cough Edema Hypertensive disorder History of coronary artery bypass surgery Nonsustained ventricular tachycardia (CMS/HCC) Syncope and collapse Wound of sternal region Chronic diastolic congestive heart failure (CMS/HCC) COVID-19 Hyperglycemia Metabolic syndrome MGUS (monoclonal gammopathy of unknown significance) Pericardial effusion Pneumonia, bacterial Solitary pulmonary nodule Family History Problem Relation Name Age of Onset Coronary artery disease Mother Social History Tobacco Use Smoking status: Former Types: Cigarettes Smokeless tobacco: Never Substance Use Topics Drug use: Never HPI Visit of 03/20/2021: Arianne is seen as a new patient. He is a 75-year-old man with history of hypertension and diabetes. He has longstanding lower extremity edema. In November 2020 he was sitting at a bar and developed epigastric pain and then lost consciousness. Developed syncope. He was resuscitated and admitted to the [facility]. His initial investigation was negative. He was discharged on event monitor. This picked up evidence of nonsustained ventricular tachycardia. An echocardiogram was performed that showed normal ventricular function and notes no valvular dysfunction with dilated right-sided chambers. Right ventricular systolic pressure could not be assessed by echocardiogram. Today he reports that he has shortness of breath on exertion. Relieved by rest. He has lower extremity edema that is chronic. He has chronic lower extremity skin changes. He does not feel palpitations. He has no dizziness or lightheadedness. Echocardiogram 03/15/2021: Normal ventricular systolic function, grade 2 diastolic dysfunction, no significant valvular dysfunction, mildly limited right atrium and right ventricle, the IVC is mildly dilated, right sided pressures could not be assessed due to lack of measurable tricuspid regurgitation jet Event monitor 02/01/2021-03/02/2021: Sinus rhythm with runs of ventricular tachycardia, the longest being 11 seconds Blood testing 05/21/2021: Platelets 248, hemoglobin 13.8, potassium 3.5, BUN 12, creatinine 0.98, LFTs within normal limits, hemoglobin A1c 5.8. Visit of 04/30/2021: He is seen in follow-up. After last visit I proceeded with cardiac catheterization. This was done on 04/03/2021 and showed significant disease in the LAD, diagonal and right coronary artery. He underwent bypass surgery with WILKINS to LAD, saphenous venous graft to the diagonal branch. The right coronary artery was heavily calcified and could not be bypassed. Today he reports that he has been doing well. He has chest soreness at the site of the surgery. He is recovering from the bypass surgery. Cardiac catheterization 04/03/2021: 1. Severe 2-vessel coronary artery disease. 2. 80% complex long calcific stenosis in the proximal to mid LAD that is hemodynamically significant by IFR assessment. 3. 90% stenosis at the ostium of a large first diagonal branch. 4. 50% stenosis in the first obtuse marginal branch. 5. 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 6. Near normal filling pressures. 7. Mild pulmonary hypertension. 8. Preserved cardiac output and cardiac index. Bypass surgery 04/08/2021: Off pump Coronary artery bypass grafting x2, WILKINS to LAD, saphenous vein graft to diagonal branch. Update 04/15/2022: He is seen in follow-up. In August 2021 he was admitted to [facility] and then transferred to [facility] due to COVID infection and large pericardial effusion. He was treated with diuretics. CTA of the chest August 2021 found effusion to be moderate and did not necessitate pericardiocentesis. He has dyspnea on exertion when walking and doing physical activity. No chest pain. He has bilateral leg swelling. He is in NYHA class II-III. He reports that he ran out of Lasix over the past 5 days. Recent testing: Blood testing 04/15/2022: Potassium 4.8, BUN 25, creatinine 1.2, EGFR 59. Blood testing 10/23/2021: Hemoglobin 12, platelets 232, potassium 4.0, BUN 44, creatinine 1.54. Echocardiogram 10/23/2021: Normal ventricular systolic function, pericardial effusion: Small anterior pericardial effusion with moderate loculated effusion adjacent to the right atrium, moderate to large 2.3 cm posterior pericardial effusion with maximum measurement of 2.3 cm decreased from previous 2.85-3.19 cm. No obvious evidence of increased intrapericardial pressure by Doppler interrogation or 2D imaging. Update 07/14/2022: He is seen in follow-up. At last visit of 04/14/2022 I added Jardiance 10 mg daily. A follow-up BMP showed worsening renal funct (more content not included)... [facility]2023 Note Cardiovascular Medic ine [facility] SUBJECTIVE Chief Complaint Patient presents with Coronary Artery Disease Hypertension Congestive Heart Failure Arianne Mcqueen is a 77 y.o. male here for follow-up. HPI 01/06/2023 Since last seen patient saw pulmonary. He was started on an inhaler. His breathing is improved. He tends to have a productive cough in the AM, sometimes in the afternoon. He denies c/o CP, palpitations, orthopnea, PND, LE edema, dizziness/LH. He inquired about trying viagra or cialis. Advised these would not be good options for him given he is taking Imdur. ------ ---- Last HPI per Dr. Salazar: Visit of 03/20/2021: Arianne is seen as a new patient. He is a 75-year-old man with history of hypertension and diabetes. He has longstanding lower extremity edema. In November 2020 he was sitting at a bar and developed epigastric pain and then lost consciousness. Developed syncope. He was resuscitated and admitted to the [facility]. His initial investigation was negative. He was discharged on event monitor. This picked up evidence of nonsustained ventricular tachycardia. An echocardiogram was performed that showed normal ventricular function and notes no valvular dysfunction with dilated right-sided chambers. Right ventricular systolic pressure could not be assessed by echocardiogram. Today he reports that he has shortness of breath on exertion. Relieved by rest. He has lower extremity edema that is chronic. He has chronic lower extremity skin changes. He does not feel palpitations. He has no dizziness or lightheadedness. Echocardiogram 03/15/2021: Normal ventricular systolic function, grade 2 diastolic dysfunction, no significant valvular dysfunction, mildly limited right atrium and right ventricle, the IVC is mildly dilated, right sided pressures could not be assessed due to lack of measurable tricuspid regurgitation jet Event monitor 02/01/2021-03/02/2021: Sinus rhythm with runs of ventricular tachycardia, the longest being 11 seconds Blood testing 05/21/2021: Platelets 248, hemoglobin 13.8, potassium 3.5, BUN 12, creatinine 0.98, LFTs within normal limits, hemoglobin A1c 5.8. Visit of 04/30/2021: He is seen in follow-up. After last visit I proceeded with cardiac catheterization. This was done on 04/03/2021 and showed significant disease in the LAD, diagonal and right coronary artery. He underwent bypass surgery with WILKINS to LAD, saphenous venous graft to the diagonal branch. The right coronary artery was heavily calcified and could not be bypassed. Today he reports that he has been doing well. He has chest soreness at the site of the surgery. He is recovering from the bypass surgery. Cardiac catheterization 04/03/2021: 1. Severe 2-vessel coronary artery disease. 2. 80% complex long calcific stenosis in the proximal to mid LAD that is hemodynamically significant by IFR assessment. 3. 90% stenosis at the ostium of a large first diagonal branch. 4. 50% stenosis in the first obtuse marginal branch. 5. 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 6. Near normal filling pressures. 7. Mild pulmonary hypertension. 8. Preserved cardiac output and cardiac index. Bypass surgery 04/08/2021: Off pump Coronary artery bypass grafting x2, WILKINS to LAD, saphenous vein graft to diagonal branch. Update 04/15/2022: He is seen in follow-up. In August 2021 he was admitted to [facility] and then transferred to [facility] due to COVID infection and large pericardial effusion. He was treated with diuretics. CTA of the chest August 2021 found effusion to be moderate and did not necessitate pericardiocentesis. He has dyspnea on exertion when walking and doing physical activity. No chest pain. He has bilateral leg swelling. He is in NYHA class II-III. He reports that he ran out of [employer] over the past 5 days. Recent testing: Blood testing 04/15/2022: Potassium 4.8, BUN 25, creatinine 1.2, EGFR 59. Blood testing 10/23/2021: Hemoglobin 12, platelets 232, potassium 4.0, BUN 44, creatinine 1.54. Echocardiogram 10/23/2021: Normal ventricular systolic function, pericardial effusion: Small anterior pericardial effusion with moderate loculated effusion adjacent to the right atrium, moderate to large 2.3 cm posterior pericardial effusion with maximum measurement of 2.3 cm decreased from previous 2.85-3.19 cm. No obvious evidence of increased intrapericardial pressure by Doppler interrogation or 2D imaging. Update 07/14/2022: He is seen in follow-up. At last visit of 04/14/2022 I added Jardiance 10 mg daily. A follow-up BMP showed worsening renal function so I had him stop furosemide. In addition I checked a echocardiogram to follow-up on his pericardial effusion and this showed trivial pericardial effusion with normal right-sided pressu (more content not included)... [facility] 01-06-2023 Note Patient here for 3 m o follow up GROVES, CAD, and CHF. He saw Dr. Mayers in October 2022. Denies chest pain. He states his GROVES is improving. Review of Systems Cardiovascular: Positive for dyspnea on exertion. Respiratory: Positive for cough. Skin: Positive for color change and dry skin. All other systems reviewed and are negative. [facility] 10-10-2022 Note Cardiovascular Medic [facility] SUBJECTIVE Chief Complaint Patient presents with Cardiac Stress Test Coronary Artery Disease Shortness of Breath Arianne Mcqueen is a 77 y.o. male here for follow-up. HPI Since last seen, he was admitted to [facility] for PNA and sepsis. He notes continued GROVES such as walking in from the parking lot. He states besides this he is feeling good. 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 He notes that he was discharged with an inhaler after his bypass surgery but he hasn't used it. He denies CP, orthopnea, PND, dizziness/LH, palpitations. His leg swelling is unchanged, better than what it was before. ------ Last HPI per Dr. Salazar: Visit of 03/20/2021: Arianne is seen as a new patient. He is a 75-year-old man with history of hypertension and diabetes. He has longstanding lower extremity edema. In November 2020 he was sitting at a bar and developed epigastric pain and then lost consciousness. Developed syncope. He was resuscitated and admitted to the [facility]. His initial investigation was negative. He was discharged on event monitor. This picked up evidence of nonsustained ventricular tachycardia. An echocardiogram was performed that showed normal ventricular function and notes no valvular dysfunction with dilated right-sided chambers. Right ventricular systolic pressure could not be assessed by echocardiogram. Today he reports that he has shortness of breath on exertion. Relieved by rest. He has lower extremity edema that is chronic. He has chronic lower extremity skin changes. He does not feel palpitations. He has no dizziness or lightheadedness. Echocardiogram 03/15/2021: Normal ventricular systolic function, grade 2 diastolic dysfunction, no significant valvular dysfunction, mildly limited right atrium and right ventricle, the IVC is mildly dilated, right sided pressures could not be assessed due to lack of measurable tricuspid regurgitation jet Event monitor 02/01/2021-03/02/2021: Sinus rhythm with runs of ventricular tachycardia, the longest being 11 seconds Blood testing 05/21/2021: Platelets 248, hemoglobin 13.8, potassium 3.5, BUN 12, creatinine 0.98, LFTs within normal limits, hemoglobin A1c 5.8. Visit of 04/30/2021: He is seen in follow-up. After last visit I proceeded with cardiac catheterization. This was done on 04/03/2021 and showed significant disease in the LAD, diagonal and right coronary artery. He underwent bypass surgery with WILKINS to LAD, saphenous venous graft to the diagonal branch. The right coronary artery was heavily calcified and could not be bypassed. Today he reports that he has been doing well. He has chest soreness at the site of the surgery. He is recovering from the bypass surgery. Cardiac catheterization 04/03/2021: 1. Severe 2-vessel coronary artery disease. 2. 80% complex long calcific stenosis in the proximal to mid LAD that is hemodynamically significant by IFR assessment. 3. 90% stenosis at the ostium of a large first diagonal branch. 4. 50% stenosis in the first obtuse marginal branch. 5. 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 6. Near normal filling pressures. 7. Mild pulmonary hypertension. 8. Preserved cardiac output and cardiac index. Bypass surgery 04/08/2021: Off pump Coronary artery bypass grafting x2, WILKINS to LAD, saphenous vein graft to diagonal branch. Update 04/15/2022: He is seen in follow-up. In August 2021 he was admitted to [facility] and then transferred to [facility] due to COVID infection and large pericardial effusion. He was treated with diuretics. CTA of the chest August 2021 found effusion to be moderate and did not necessitate pericardiocentesis. He has dyspnea on exertion when walking and doing physical activity. No chest pain. He has bilateral leg swelling. He is in NYHA class II-III. He reports that he ran out of [employer] over the past 5 days. Recent testing: Blood testing 04/15/2022: Potassium 4.8, BUN 25, creatinine 1.2, EGFR 59. Blood testing 10/23/2021: Hemoglobin 12, platelets 232, potassium 4.0, BUN 44, creatinine 1.54. Echocardiogram 10/23/2021: Normal ventricular systolic function, pericardial effusion: Small anterior pericardial effusion with moderate loculated effusion adjacent to the right atrium, moderate to large 2.3 cm posterior pericardial effusion with maximum measurement of 2.3 cm decreased from previous 2.85-3.19 cm. No obvious evidence of increased intrapericardial pressure by Doppler interrogation or 2D imaging. Update 07/14/2022: He is seen in follow-up. At last visit of 04/14/2022 I added Jardiance 10 mg daily. A follow-up BMP showed worsening renal function so I had him stop furosemide. In addition I checked a echocardiogram to follow-up on his per (more content not included)... [facility] 10-10-2022 Note Patient here for fol low up stress test. He was admitted to [facility] in Jul 2022 for sepsis and pneumonia. Still denies chest pain but gets very winded with exertion. Review of Systems Cardiovascular: Positive for dyspnea on exertion. All other systems reviewed and are negative. [facility] 09-15-2022 Note This report has been cancelled. [facility] 09-15-2022 Note This report has been cancelled. [facility] 09-15-2022 Note This report has been cancelled. [facility] 09-03-2022 Evaluation note Encounter Date Diagnosis Assessment Notes Aug, Primary osteoarthritis of right hip (ICD-10 - M16.11) Arianne presents with right hip DJD. At this juncture we have discussed the findings and diagnosis as well as personally reviewed appropriate imaging and performed interpretation of related testing and examination with the patient in office today. Prior medical notes from Dr. Barnes and history have been reviewed. Hospital notes from the [facility] from his prior admission on 08/18/2022 are also reviewed. He was admitted and treated for left lower lobe pneumonia. Today we have discussed degenerative joint disease of the hip and its treatment. Imaging was explained and discussed with the patient. We discussed recommended conservative therapies including physical therapy, anti-inflammator y medications, and weight loss strategies. We also discussed other treatment options including cortisone injections. I have laid out the course of hip DJD including the end-stage treatment of total joint arthroplasty. The patient recognizes and understands our options and goals and we will move forward with our treatment. He is currently taking anti-inflammator ies which control his symptoms fairly well and I would continue this for the time being. If he has decreased efficacy with these or is unable to take these further then I would advance his discussion towards total hip arthroplasty. He has had open heart surgery approx1.5 years ago and was just admitted to [facility] with pneumonia a couple of weeks ago. He is currently not a surgical candidate at this time but once again if his symptoms advance and he could get clearance then we can consider total hip arthroplasty. He may follow-up as needed from now He should continue to work towards a healthy weight and BMI less than 40 to decrease future surgical risk The patient has been involved in our cooperative treatment plan and agrees to move forward with treatment at this time. Radiographs reviewed and discussed in detail with patient. The patient is suffering from degenerative arthritis involving the hip. We discussed the conservative treatment options which can be beneficial in relieving pain, including gentle non-impact motion exercise and non-steroidal anti-inflammato ry medication. We discussed the use of occasional intra-articular cortisone injections that can provide pain relief as well as end-stage treatment of total hip replacement. Patient voices understanding and opts for conservative treatment with anti-inflammato ry medication. Advised patient he may use a cane for walking assistance. Patient voices understanding and is agreeable to treatment plan. We will follow up as needed if pain becomes uncontrolled with medications. Aug, Other See orders for this visit as documented in the electronic medical record. [facility] 11-21-2022 [facility] - [facility] Subjective Arianne Mcqueen is a 77 y.o. year old male patient being seen for 3 mo follow up Coronary Artery Disease, Hypertension, and Hyperlipidemia He was started on Jardiance at last visit in Mar 2022. Had echo and labs in Apr. Says his SOB w/ exertion remains unchanged. Denies chest pain. Patient Active Problem List Diagnosis Multiple vessel coronary artery disease Cough Edema Hypertensive disorder History of coronary artery bypass surgery Nonsustained ventricular tachycardia Syncope and collapse Wound of sternal region Chronic diastolic congestive heart failure (CMS/HCC) Family History Problem Relation Name Age of Onset Coronary artery disease Mother Social History Tobacco Use Smoking status: Former Types: Cigarettes Smokeless tobacco: Never Substance Use Topics Drug use: Never HPI Visit of 03/20/2021: Arianne is seen as a new patient. He is a 75-year-old man with history of hypertension and diabetes. He has longstanding lower extremity edema. In November 2020 he was sitting at a bar and developed epigastric pain and then lost consciousness. Developed syncope. He was resuscitated and admitted to the [facility]. His initial investigation was negative. He was discharged on event monitor. This picked up evidence of nonsustained ventricular tachycardia. An echocardiogram was performed that showed normal ventricular function and notes no valvular dysfunction with dilated right-sided chambers. Right ventricular systolic pressure could not be assessed by echocardiogram. Today he reports that he has shortness of breath on exertion. Relieved by rest. He has lower extremity edema that is chronic. He has chronic lower extremity skin changes. He does not feel palpitations. He has no dizziness or lightheadedness. Echocardiogram 03/15/2021: Normal ventricular systolic function, grade 2 diastolic dysfunction, no significant valvular dysfunction, mildly limited right atrium and right ventricle, the IVC is mildly dilated, right sided pressures could not be assessed due to lack of measurable tricuspid regurgitation jet Event monitor 02/01/2021-03/02/2021: Sinus rhythm with runs of ventricular tachycardia, the longest being 11 seconds Blood testing 05/21/2021: Platelets 248, hemoglobin 13.8, potassium 3.5, BUN 12, creatinine 0.98, LFTs within normal limits, hemoglobin A1c 5.8. Visit of 04/30/2021: He is seen in follow-up. After last visit I proceeded with cardiac catheterization. This was done on 04/03/2021 and showed significant disease in the LAD, diagonal and right coronary artery. He underwent bypass surgery with WILKINS to LAD, saphenous venous graft to the diagonal branch. The right coronary artery was heavily calcified and could not be bypassed. Today he reports that he has been doing well. He has chest soreness at the site of the surgery. He is recovering from the bypass surgery. Cardiac catheterization 04/03/2021: 1. Severe 2-vessel coronary artery disease. 2. 80% complex long calcific stenosis in the proximal to mid LAD that is hemodynamically significant by IFR assessment. 3. 90% stenosis at the ostium of a large first diagonal branch. 4. 50% stenosis in the first obtuse marginal branch. 5. 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 6. Near normal filling pressures. 7. Mild pulmonary hypertension. 8. Preserved cardiac output and cardiac index. Bypass surgery 04/08/2021: Off pump Coronary artery bypass grafting x2, WILKINS to LAD, saphenous vein graft to diagonal branch. Update 04/15/2022: He is seen in follow-up. In August 2021 he was admitted to [facility] and then transferred to [facility] due to COVID infection and large pericardial effusion. He was treated with diuretics. CTA of the chest August 2021 found effusion to be moderate and did not necessitate pericardiocentesis. He has dyspnea on exertion when walking and doing physical activity. No chest pain. He has bilateral leg swelling. He is in NYHA class II-III. He reports that he ran out of [employer] over the past 5 days. Recent testing: Blood testing 04/15/2022: Potassium 4.8, BUN 25, creatinine 1.2, EGFR 59. Blood testing 10/23/2021: Hemoglobin 12, platelets 232, potassium 4.0, BUN 44, creatinine 1.54. Echocardiogram 10/23/2021: Normal ventricular systolic function, pericardial effusion: Small anterior pericardial effusion with moderate loculated effusion adjacent to the right atrium, moderate to large 2.3 cm posterior pericardial effusion with maximum measurement of 2.3 cm decreased from previous 2.85-3.19 cm. No obvious evidence of increased intrapericardial pressure by Doppler interrogation or 2D imaging. Update 07/14/2022: He is seen in follow-up. At last visit of 04/14/2022 I added Jardiance 10 mg daily. A follow-up BMP showed worsening renal function so I had him stop furosemi (more content not included)...[facility] NotePROCEDURE: XR HIP RT 2 3V WO PELVIS HISTORY: Pain in right hip joint COMPARISON: XR pelvis 09/15/2021 FINDINGS: BONES:Complete loss of the joint space with [id number] articulation. Large periarticular degenerative osteophytes. No fracture, dislocation, bone lesion. SOFT TISSUES:No visible soft tissue swelling. EFFUSION:None visible. OTHER: Atherosclerotic disease. IMPRESSION: 1. 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 2. No appreciable acute abnormality. Electronically authenticated by: NOREEN KELLY Date: 2022-05-08 10:48[facility] NotePatient Outreach (COVAM[facility]) ARIANNE MCQUEEN ([id number]) 1945 M Date Time Provider Department 10/11/20 TERRANCE CABALLERO During your visit today, we recorded the following information about you: Allergies As of Date: 10/11/2020 (No Known Allergies) Date Reviewed: 04/21/2020 Reviewed by: Willie Sotelo - Fully Assessed Order(s):SARS-COVID VACCINE 1ST DOSE APPT [[id number]] Order #: [id number] FUTURE Prescriptions as of 10/11/2020 Sig: TRAZODONE 50 MG TABLET Take 50 mg by mouth daily at * FUROSEMIDE 40 MG TABLET Take 40 mg by mouth once maty* METFORMIN 500 MG TABLET Take 500 mg by mouth twice da* ALEVE ORAL Take by mouth. AMLODIPINE 10 MG TABLET Take 10 mg by mouth once maty* Problem List As Of Date 10/11/2020 Noted Resolved Metabolic syndrome [E88.81] 08/19/2012 MGUS (monoclonal gammopathy of unknown signific*08/19/2012 Hyperglycemia [R73.9] 08/19/2012 Peripheral vascular disease [I73.9] 08/19/2012 Letter Text Encounter Status:Closed by LOOKCAST, DasdakUSER on 10/15/20[facility] History general Narrative - Reported* Type Description Date Medical History diabetes mallitus Medical History HTN Surgical History knee replacement 2010 [facility] Other Summary Purpose Family History No Family History Records FoundNo Family History Records FoundNo Family History Records FoundNo Family History Records FoundNo Family History Records Found Advance Directives No Advanced Directives Records FoundNo Advanced Directives Records FoundNo Advanced Directives Records FoundNo Advanced Directives Records FoundNo Advanced Directives Records Found Additional Source Comments (unrecognized sect ion and content) No Status Records FoundNo Status Records FoundNo Status Records FoundNo Status Records FoundNo Status Records Found INFORMATION SOURCE (unrecogn ized section and content) DATE CREATED AUTHOR 09/01/2021 [facility] DATE CREATED AUTHOR AUTHOR'S ORGANIZ ATION 04/06/2022 [facility] DATE CREATED AUTHOR AUTHOR'S ORGANIZ ATION 11/04/2022 [facility] DATE CREATED AUTHOR AUTHOR'S ORGANIZ ATION 05/25/2023 [facility] DATE CREATED AUTHOR AUTHOR'S ORGANIZ ATION 06/07/2023 [facility] REASON FOR VISIT (unrecogniz ed section and content) Right Hip Pain FOR RECORDS PERTAINING TO PATIENTS WHO ARE OR HAVE BEEN ENROLLED IN A CHEMICAL DEPENDENCY/SUBSTANCEABUSE PROGRAM, SOME INFORMATION MAY BE OMITTED. This clinical summary was aggregated from multiple sources. Caution should be exercised in using it in the provision of clinical care. This summary normalizes information from multiple sources, and as a consequence, information in this document may materially change the coding, format and clinical context of patient data. In addition, data may be omitted in some cases. CLINICAL DECISIONS SHOULD BE BASED ON THE PRIMARY CLINICAL RECORDS. [facility] [employer] provides no warranty or guarantee of the accuracy or completeness of information in this document.
== END 2023-08-13 13:49 | disposition home or self-care (01) ==
LOC: VC 13:48
PROVIDERS: PCP Radiology Diagnostic Radiology; Visit Provider Radiology Diagnostic Radiology
DX: I80.01 Phlebitis and thrombophlebitis of superficial vessels of right lower extremity (principal)
CPT/HCPCS: 93971; G0463

== ENCOUNTER 2023-08-20 13:47 | Outpatient (OUT) | payer MEDICARE, SELFPAY ==
--- NOTE | 2023-08-20 13:51 | VEIN_ITS ---
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 Ultrasound-guided microfoam chemical ablation with Varithenaregistered 2. Intraoperative ultrasound guidance Physician: Km De Jesus M.D. Anesthesia: None Indications for Procedure: 78 year old male. Symptoms including lower extremity pain, swelling, dilated bulging veins, extensive skin changes, recurring bones for many years despite conservative medical therapy including medical compression stockings, exercise and analgesics. Prior procedures include endovenous laser ablation and microfoam chemical ablation. Multiple incompetent varicosities of the left leg. Duplex scan showed reflux and enlarged diameters up to 7 mm. The patient underwent informed consent including management options where the complications of infection, bleeding, pain, and skin injury were discussed. Particular attention was spent discussing thrombus extension and deep vein thrombosis as well as the possibility of pulmonary embolus and treatment with oral or injectable blood thinners. Procedure: The patient walked to the procedure room. All applicable staff donned appropriate apparel. A procedure timeout was performed to confirm correct patient, correct extremity, correct procedure, and correct room set-up including presence of all applicable supplies, devices, and drugs. A duplex ultrasound, performed by myself confirmed the location and incompetence of branch saphenous varicosities and their course was marked on the skin together with the dilated tributaries. The extent of treatment of the vein and the associated varicosities was determined through ultrasound mapping. The skin was prepped and then punctured with a butterfly needle and advanced under ultrasound guidance. The Varithenaregistered canister was activated and the canister was primed and purged as required in the instructions for use. Varithenaregistered was drawn into a sterile syringe. Varithenaregistered was slowly administered at 0.5-1.0 cc/second with close observation by ultrasound of its course in the vessels. Total volume utilized was: 15 mL (9 mL into a 7 mm varicosity of the distal medial lower leg; 6 mL into a 4 mm varicosity mid medial lower leg). Following administration of Varithenaregistered the leg was elevated and the patient was asked to repeatedly dorsiflex the ankle to limit flow of Varithenaregistered into perforating veins. Once appropriate spasm had been confirmed in the treated veins, the vascular catheter was removed from the leg and light pressure was applied over the puncture site for hemostasis. The common femoral and deep superficial veins were then evaluated for flow and compressibility prior to dressing placement. The lower extremity was kept elevated at 45 degrees above the horizontal and cording material was applied over the saphenous segments and tributaries to allow for eccentric compression over the target vessels including the targeted saphenous vein(s). A multilayer dressing was applied consisting of foam pads, coban and thigh-high 20-30 mm Hg compression elastic support hose were placed on the patient. The leg was lowered only after compression had been applied and the patient was immediately ambulatory. The patient ambulated 10 minutes under supervision and was without apparent concerns at time of release. Post-care instructions include advising patient to keep post-treatment bandages in place and dry for 48 hours, avoid extended periods of inactivity, avoid heavy exercise for one week, wear compression stockings on the treated leg continuously for two weeks, to walk daily for 10 minutes over the next month. The patient was instructed to take an anti-inflammatory medicine as needed and to follow up for color duplex scan of the Saphenous veins, the treated branch saphenous varicosities, the adjacent deep veins, and additional treatment within 7 days. PERSONNEL: Ladonna Stallworth RN Electronically authenticated by: KM DE JESUS Date: 08/20/2023 15:03
--- OUTSIDE RECORDS SUMMARY | 2023-08-20 13:53 | XMS_ITS | CCD ---
Author Name Unknown Address [address] [facility] [address] [place] [address] Organization [facility] Care Team Providers Care Electronic Console Display Operator Name Role Phone MAL BARNES Primary Care Unavailable PAY, ROBIN Referring Unavailable MASROOR, GUDELIA Admitting Unavailable MASROOR, GUDELIA Attending Unavailable AKANKSHA UP Surgeon Unavailable GA Procedure Practitioner Unavailab le GA Procedure Practitioner Unavailab le NORBERTRORENE, GUDELIA Surgeon [...] Admitting Unavailable MOLLY, DR MENEZES Attending Unavailable BRANDON, DR MENEZES Primary Care Unavailable MOLLY, DR MENEZES Consulting Unavailable ROBIN, DR NOREEN Oneill Consulting Unavailable MOUKARBEL, DR DOMINIQUE Admitting Unavailable MOUKARBEL, DR DOMINIQUE Attending Unavailable MOLLY, DR MENEZES Primary Care Unavailable MOUKARBEL, DR DOMINIQUE Consulting Unavailable MOUKARBEL, DR DOMINIQUE Admitting Unavailable MOUKARBEL, DR DOMINIQUE Attending Unavailable MOLLY, DR MENEZES Primary Care Unavailable SADLER, DR JOHANA Alvarado Consulting Unavailable MOUKARBEL, DR DOMINIQUE Consulting Unavailable MOUKARBEL, DR DOMINIQUE Admitting Unavailable MARTIN, DR DOMINIQUE Attending Unavailable MOLLY, DR MENEZES Primary Care Unavailable MARTIN, DR DOMINIQUE Consulting Unavailable Mal Barnes Primary Care Unavailable Lisha Ortega Attending Unavailable Lisha Ortega Admitting Unavailable ARIELLA GALLEGO Attending Unavailable ARIELLA GALLEGO Attending Unavailable CATINA SAALZAR Attending Unavailable CATINA SALAZAR Attending Unavailable Medications [...] disease (6 sources) Atherosclerotic heart disease of [place] coronary artery without angina pectoris; Translations: [Atherosclerotic heart disease of [place] coronary artery with other forms of angina [...] Onset: 2 Chronic Other aftercare (1 source) oysterman (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; Translations: [CONVEYOR INSTALLER CURRENT USE OF ASPIRIN] Onset: 3 Episodic Other aftercare (1 source) snf (current) use of 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/antiplate lets; Translations: [LONG-TERM ANTITHROMBOT/ANTIPLATLETS ] Onset: 3 Episodic Other aftercare (1 source) Other care home (current) drug therapy; Translations: [OTH CONVEYOR INSTALLER CURRENT DRUG THERAPY] Onset: 3 Episodic Other aftercare (1 source) snf (current) use of oral hypoglycemic drugs; Translations: [LONG-TERM USE ORAL HYPOGLYCEMIC DX] Onset: 3 Episodic [...] Range Facility Office Visiton 06-05-2023 Follow-up visit [id number] Luis M Mcqueen 1945 Date Provider Department Center 06/05/2023 CATINA ROBERTS SHILPI Santiago Family History Problem Relation Age of Onset Coronary artery disease Mother Family Status - Relation Status Age at Mother Level of Service:74207 [place] OFFICE/OUTPATIENT ESTABLISHED LOW MDM 20-29 MIN Reason for Visit and Comments: Follow-up [041649] Coronary Artery Disease [187] Congestive Heart Failure [127] Normal [facility] 36on 01-21-2023 35 His blood pressures are elevated. Goal is <130/90. Would like to start him on amlodipine 5mg daily. Follow-up in clinic in 3 months. THanks Normal [facility] Office Visiton 01-06-2023 Follow-up visit [id number] Luis M Mcqueen 1945 M Date Provider Department Center 01/06/2023 ARIELLA GRAVES CARD [facility] Family History Problem Relation Age of Onset Coronary artery disease Mother Family Status - Relation Status Age at Mother Level of Service:10643 [place] OFFICE/OUTPATIENT ESTABLISHED LOW MDM 20-29 MIN Reason for Visit and Comments: Coronary Artery Disease [187] Hypertension [151581] Congestive Heart Failure [127] Normal [facility] Office Visiton 10-10-2022 Follow-up visit [id number] Luis M Mcqueen jennifer Desai 1945 M Date Provider Department Center 10/10/2022 ARIELLA GRAVES CARD [facility] Family History Problem Relation Age of Onset Coronary artery disease Mother Family Status - Relation Status Age at Mother Level of Service:53785 [place] OFFICE/OUTPATIENT ESTABLISHED MOD MDM 30-39 MIN Reason for Visit and Comments: Cardiac Stress Test [489] Coronary Artery Disease [187] Shortness of Breath [151842] Normal [facility] BNPon 08-20-2022 Natriuretic peptide B (Bld) [Mass/Vol] 1748.0 pg/mL Normal <=1,800.0 [facility] Comment on above: Performed By: #### P OCGLUC #### [facility] [address] [place] [address] Dr. Deidre Tijerina CBC AUTO DIFFon 08-20-2022 BASO # 0.0 103/ul Normal 0.0-0.1 [facility] Comment on above: Performed By: #### C BC #### [facility] [address] [address] [address] Deidre Tijerina Basophils/100 WBC (Bld) 0.1 % Critically low 0.2-2.0 [facility] Comment on above: Performed By: #### C BC #### [facility] [address] [address] [address] Deidre Tijerina EO # 0.0 103/ul Normal 0.0-0.7 [facility] Comment on above: Performed By: #### C BC #### [facility] [address] [address] [address] Deidre Tijerina Eosinophils/100 WBC (Bld) 0.0 % Critically low 0.9-7.0 [facility] Comment on above: Performed By: #### C BC #### [facility] [address] [place] [address] Dr. Deidre Tijerina Erythrocyte distribution width (RBC) [Ratio] 13.6 % Normal 11.0-15.0 [facility] Comment on above: Performed By: #### C BC #### [facility] [address] [place] [address] Dr. Deidre Tijerina Hematocrit (Bld) [Volume fraction] 30.1 % Critically low 42.0-54.0 [facility] Comment on above: Performed By: #### C BC #### [facility] [address] [place] [address] Dr. Deidre Tijerina Hemoglobin (Bld) [Mass/Vol] 9.8 g/dL Critically low 14.0-18.0 [facility] Comment on above: Performed By: #### C BC #### [facility] [address] [place] [address] Dr. Deidre Tijerina IG # 0.13 10e3/ul Critically high 0.00-0.[address] [facility] Comment on above: Performed By: #### C BC #### [facility] [address] [place] [address] Dr. Deidre Tijerina IG % 1.0 % Critically high 0.0-0.5 [facility] Comment on above: Performed By: #### C BC #### [facility] [address] [place] [address] Dr. Deidre Tijerina LYMPH # 1.2 103/ul Normal 1.2-3.8 [facility] Comment on above: Performed By: #### C BC #### [facility] [address] [place] [address] Dr. Deidre Tijerina Lymphocytes/100 WBC (Bld) 8.6 % Critically low 20.5-60.0 [facility] Comment on above: Performed By: #### C BC #### [facility] [address] [place] [address] Dr. Deidre Tijerina MANUAL DIFF REQ NO Normal [facility] Comment on above: Performed By: #### C BC #### [facility] [address] [address] [address] Deidre Tijerina MCH (RBC) [Entitic mass] 30.7 pg Normal 25.9-34.0 [facility] Comment on above: Performed By: #### C BC #### [facility] [address] [place] [address] Dr. Deidre Tijerina MCHC (RBC) [Mass/Vol] 32.6 g/dL Normal 29.9-35.2 [facility] Comment on above: Performed By: #### C BC #### [facility] [address] [place] [address] Dr. Deidre Tijerina MCV (RBC) [Entitic vol] 94.4 fL Critically high 80.0-94.0 [facility] Comment on above: Performed By: #### C BC #### [facility] [address] [place] [address] Dr. Deidre Tijerina MONO # 0.8 103/ul Normal 0.3-0.8 [facility] Comment on above: Performed By: #### C BC #### [facility] [address] [place] [address] Dr. Deidre Tijerina Monocytes/100 WBC (Bld) 6.2 % Normal 1.7-12.0 [facility] Comment on above: Performed By: #### C BC #### [facility] [address] [place] [address] Dr. Deidre Tijerina NEUT # 11.3 103/ul Critically high 1.4-6.5 [facility] Comment on above: Performed By: #### C BC #### [facility] [address] [place] [address] Dr. Deidre Tijerina Neutrophils/100 WBC (Bld) 84.1 % Critically high 43.0-75.0 [facility] Comment on above: Performed By: #### C BC #### [facility] [address] [place] [address] Dr. Deidre Tijerina Platelet mean volume (Bld) [Entitic vol] 9.3 fL Critically low 9.5-13.5 [facility] Comment on above: Performed By: #### C BC #### [facility] [address] [address] [address] Deidre Tijerina PLT 204 103/ul Normal 150-450 [facility] Comment on above: Performed By: #### C BC #### [facility] [address] [address] [address] Deidre Tijerina RBC 3.19 106/ul Critically low 4.70-6.10 [facility] Comment on above: Performed By: #### C BC #### [facility] [address] [address] [address] Deidre Tijerina WBC 13.5 103/ul Critically high 4.0-11.0 [facility] Comment on above: Performed By: #### C BC #### [facility] [address] [address] [address] Deidre Tijerina POINT OF CARE GLUCOSEon 07-25 Glucose [Mass/Vol] 164 mg/dL Critically high 74-106 [facility] Comment on above: Performed By: #### P OCGLUC #### [facility] [address] [address] [address] Deidre Tijerina PROF CHEM 8 (BAS METB)on Anion gap [Moles/Vol] 10.5 mmol/L Normal [facility] Comment on above: Performed By: #### P OCGLUC #### [facility] [address] [address] [address] Deidre Tijerina Calcium [Mass/Vol] 8.1 mg/dL Critically low 8.5-10.[address] [facility] Comment on above: Performed By: #### P OCGLUC #### [facility] [address] [address] [address] Deidre Tijerina Chloride [Moles/Vol] 100 mmol/L Normal 98-107 [facility] Comment on above: Performed By: #### P OCGLUC #### [facility] [address] [address] [address] Deidre Tijerina CO2 [Moles/Vol] 24.4 mmol/L Normal 21.0-32.0 [facility] Comment on above: Performed By: #### P OCGLUC #### [facility] [address] [address] [address] Deidre Tijerina Creatinine [Mass/Vol] 1.17 mg/dL Normal 0.70-1.30 [facility] Comment on above: Performed By: #### P OCGLUC #### [facility] [address] [address] [address] Deidre Tijerina EGFR-AF EQUATORIAL GUINEAN >60 Normal >=60 [facility] Comment on above: Performed By: #### P OCGLUC #### [facility] [address] [address] [address] Deidre Tijerina EGFR-NON AF EQUATORIAL GUINEAN 60 mL/min/1.73m2 Normal >=60 [facility] Comment on above: Performed By: #### P OCGLUC #### [facility] [address] [address] [address] Deidre Tijerina Glucose [Mass/Vol] 145 mg/dL Critically high 74-106 [facility] Comment on above: Performed By: #### P OCGLUC #### [facility] [address] [address] [address] Deidre Tijerina Potassium [Moles/Vol] 3.9 mmol/L Normal 3.5-5.1 [facility] Comment on above: Performed By: #### P OCGLUC #### [facility] [address] [address] [address] Deidre Tijerina Sodium [Moles/Vol] 131 mmol/L Critically low 136-145 [facility] Comment on above: Performed By: #### P OCGLUC #### [facility] [address] [address] [address] Deidre Tijerina Urea nitrogen [Mass/Vol] 37.0 mg/dL Critically high 7.0-18.0 [facility] Comment on above: Performed By: #### P OCGLUC #### [facility] [address] [address] [address] Deidre Tijerina Urea nitrogen/Creatinine [Mass ratio] 31.6 mg/mg Normal [facility] Comment on above: Performed By: #### P OCGLUC #### [facility] [address] [place] [address] Dr. Deidre Tijerina XR CHEST 1 Von [...] ESTUARDO ABEBE Date: 2022-08-20 13:26 Normal [facility] BNPon 08-19-2022 Natriuretic peptide B (Bld) [Mass/Vol] 955.0 pg/mL Normal <=1,800.0 [facility] Comment on above: Performed By: #### C BC #### [facility] [address] [place] [address] Dr. Deidre Tijerina CBC W MANUAL DIFFon 08-19-20 22 ATYPICAL LYMPH # 0.28 103/ul Normal [facility] Comment on above: Performed By: #### P OCGLUC #### [facility] [address] [place] [address] Dr. Deidre Tijerina ATYPICAL LYMPH % 2 % Normal [facility] Comment on above: Performed By: #### P OCGLUC #### [facility] [address] [place] [address] Dr. Deidre Tijerina BAND # 0.0 103/ul Normal 0.0-0.3 [facility] Comment on above: Performed By: #### P OCGLUC #### [facility] [address] [place] [address] Dr. Deidre Tijerina BAND % 0 % Normal 0-5 [facility] Comment on above: Performed By: #### P OCGLUC #### [facility] [address] [place] [address] Dr. Deidre Tijerina BASOM # 0.00 103/ul Normal 0.00-0.10 [facility] Comment on above: Performed By: #### P OCGLUC #### [facility] [address] [place] [address] Dr. Deidre Tijerina BASOM % 0.0 % Critically low 0.2-2.0 [facility] Comment on above: Performed By: #### P OCGLUC #### [facility] [address] [address] [address] Deidre Tijerina BLAST # Normal [facility] Comment on above: Performed By: #### P OCGLUC #### [facility] [address] [address] [address] Deidre Tijerina BLAST % Normal [facility] Comment on above: Performed By: #### P OCGLUC #### [facility] [address] [place] [address] Dr. Deidre Tijerina CORRECTED WBC Normal 4.0-11.0 [facility] Comment on above: Performed By: #### P OCGLUC #### [facility] [address] [place] [address] Dr. Deidre Tijerina EOS # 0.00 103/ul Normal 0.00-0.70 [facility] Comment on above: Performed By: #### P OCGLUC #### [facility] [address] [place] [address] Dr. Deidre Tijerina EOS% 0.0 % Critically low 0.9-7.0 [facility] Comment on above: Performed By: #### P OCGLUC #### [facility] [address] [place] [address] Dr. Deidre Tijerina HCT 30.4 % Critically low 42.0-54.0 [facility] Comment on above: Performed By: #### P OCGLUC #### [facility] [address] [place] [address] Dr. Deidre Tijerina HGB 9.8 g/dl Critically low 14.0-18.0 [facility] Comment on above: Performed By: #### P OCGLUC #### [facility] [address] [place] [address] Dr. Deidre Tijerina LYMPHM # 0.43 103/ul Critically low 1.20-3.80 [facility] Comment on above: Performed By: #### P OCGLUC #### [facility] [address] [address] [address] Deidre Tijerina LYMPHM% 3.0 % Critically low 20.5-60.0 [facility] Comment on above: Performed By: #### P OCGLUC #### [facility] [address] [address] [address] Deidre Tijerina MCH 30.8 pg Normal 25.9-34.0 [facility] Comment on above: Performed By: #### P OCGLUC #### [facility] [address] [address] [address] Deidre Tijerina MCHC 32.2 g/dl Normal 29.9-35.2 [facility] Comment on above: Performed By: #### P OCGLUC #### [facility] [address] [address] [address] Deidre Tijerina MCV 95.6 fL Critically high 80.0-94.0 [facility] Comment on above: Performed By: #### P OCGLUC #### [facility] [address] [place] [address] Dr. Deidre Tijerina METAMYELOCYTE # Normal [facility] Comment on above: Performed By: #### P OCGLUC #### [facility] [address] [place] [address] Dr. Deidre Tijerina METAMYELOCYTE % Normal [facility] Comment on above: Performed By: #### P OCGLUC #### [facility] [address] [place] [address] Dr. Deidre Tijerina MONOM# 0.57 103/ul Normal 0.30-0.80 [facility] Comment on above: Performed By: #### P OCGLUC #### [facility] [address] [place] [address] Dr. Deidre Tijerina MONOM% 4.0 % Normal 1.7-12.0 [facility] Comment on above: Performed By: #### P OCGLUC #### [facility] [address] [address] [address] Deidre Tijerina MPV 9.1 fL Critically low 9.5-13.5 [facility] Comment on above: Performed By: #### P OCGLUC #### [facility] [address] [address] [address] Deidre Tijerina MYELOCYTE # Normal [facility] Comment on above: Performed By: #### P OCGLUC #### [facility] [address] [address] [address] Deidre Tijerina MYELOCYTE % Normal [facility] Comment on above: Performed By: #### P OCGLUC #### [facility] [address] [address] [address] Deidre Tijerina NRBC Normal [facility] Comment on above: Performed By: #### P OCGLUC #### [facility] [address] [address] [address] Deidre Tijerina PLT 188 103/ul Normal 150-450 [facility] Comment on above: Performed By: #### P OCGLUC #### [facility] [address] [address] [address] Deidre Tijerina RBC 3.18 106/ul Critically low 4.70-6.10 [facility] Comment on above: Performed By: #### P OCGLUC #### [facility] [address] [address] [address] Deidre Tijerina RDW 14.0 % Normal 11.0-15.0 [facility] Comment on above: Performed By: #### P OCGLUC #### [facility] [address] [address] [address] Deidre Tijerina SEG # 12.92 103/ul Critically high 1.40-6.[address] [facility] Comment on above: Performed By: #### P OCGLUC #### [facility] [address] [address] [address] Deidre Tiejrina SEG % 91.0 % Critically high 43.0-75.0 [facility] Comment on above: Performed By: #### P OCGLUC #### [facility] [address] [address] [address] Deidre Tijerina WBC 14.2 103/ul Critically high 4.0-11.0 [facility] Comment on above: Performed By: #### P OCGLUC #### [facility] [address] [address] [address] Deidre Tijerina POINT OF CARE GLUCOSEon 07-25 Glucose [Mass/Vol] 305 mg/dL Critically high 74-106 [facility] Comment on above: Performed By: #### P OCGLUC #### [facility] [address] [address] [address] Deidre Tijerina Glucose [Mass/Vol] 181 mg/dL Critically high -106 [facility] Comment on above: Performed By: #### C BC #### [facility] [address] [place] [address] Dr. Deidre Tijerina Glucose [Mass/Vol] 342 mg/dL Critically high -106 [facility] Comment on above: Performed By: #### P OCGLUC #### [facility] [address] [address] [address] Deidre Tijerina Glucose [Mass/Vol] 192 mg/dL Critically high -106 [facility] Comment on above: Performed By: #### P OCGLUC #### [facility] [address] [address] [address] Deidre Tijerina PROF CHEM 8 (BAS METB)on Anion gap [Moles/Vol] 10.3 mmol/L Normal [facility] Comment on above: Performed By: #### B MP, BNP #### [facility] [address] [address] [address] Deidre Tijerina Calcium [Mass/Vol] 7.9 mg/dL Critically low 8.5-10.1 [facility] Comment on above: Performed By: #### B MP, BNP #### [facility] [address] [address] [address] Deidre Tijerina Chloride [Moles/Vol] 100 mmol/L Normal 98-107 [facility] Comment on above: Performed By: #### B MP, BNP #### [facility] [address] [address] [address] Deidre Tijerina CO2 [Moles/Vol] 26.6 mmol/L Normal 21.0-32.0 [facility] Comment on above: Performed By: #### B MP, BNP #### [facility] [address] [address] [address] Deidre Tijerina Creatinine [Mass/Vol] 1.29 mg/dL Normal 0.70-1.30 [facility] Comment on above: Performed By: #### B MP, BNP #### [facility] [address] [address] [address] Deidre Tijerina EGFR-AF EQUATORIAL GUINEAN >60 Normal >=60 [facility] Comment on above: Performed By: #### B MP, BNP #### [facility] [address] [address] [address] Deidre Tijerina EGFR-NON AF EQUATORIAL GUINEAN 54 mL/min/1.73m2 Critically low >=60 [facility] Comment on above: Performed By: #### B MP, BNP #### [facility] [address] [address] [address] Deidre Tijerina Glucose [Mass/Vol] 190 mg/dL Critically high 74-106 T [facility] Comment on above: Performed By: #### B MP, BNP #### [facility] [address] [address] [address] Deidre Tijerina Potassium [Moles/Vol] 3.9 mmol/L Normal 3.5-5.1 [facility] Comment on above: Performed By: #### B MP, BNP #### [facility] [address] [address] [address] Deidre Tijerina Sodium [Moles/Vol] 133 mmol/L Critically low 136-145 Th [facility] Comment on above: Performed By: #### B MP, BNP #### [facility] [address] [address] [address] Deidre Tijerina Urea nitrogen [Mass/Vol] 35.0 mg/dL Critically high 7.0-18.0 [facility] Comment on above: Performed By: #### B MP, BNP #### [facility] [address] [address] [address] Deidre Tijerina Urea nitrogen/Creatinine [Mass ratio] 27.1 mg/mg Normal [facility] Comment on above: Performed By: #### B MP, BNP #### [facility] [address] [address] [address] Deidre Tijerina BILIRUBIN CONJUGATED (DIRECT )on 08-18-2022 BILI, CONJUGATED 0.4 mg/dL Critically high 0.0-0.2 [facility] Comment on above: Performed By: #### P OCGLUC #### [facility] [address] [address] [address] Deidre Tijerina BLOOD GASES BTYon 08-18-2022 02 MODE BIPAP Normal [facility] Comment on above: Performed By: #### P OCGLUC #### [facility] [address] [place] [address] Dr. Deidre Tijerina ALLENS TEST Positive [facility] Comment on above: Performed By: #### P OCGLUC #### [facility] [address] [address] [address] Deidre Tijerina Base excess Calc (Bld) [Moles/Vol] 1.0 mmol/L Normal -2.0-2.0 [facility] Comment on above: Performed By: #### P OCGLUC #### [facility] [address] [address] [address] Deidre Tijerina BIPAP PRESSURE 16/8 Normal [facility] Comment on above: Performed By: #### P OCGLUC #### [facility] [address] [address] [address] Deidre Tijerina CPAP Normal [facility] Comment on above: Performed By: #### P OCGLUC #### [facility] [address] [place] [address] Dr. Deidre Tijerina FIO2 35.00 % [facility] Comment on above: Performed By: #### P OCGLUC #### [facility] [address] [address] [address] Deidre Tijerina HCO3 (Bld) [Moles/Vol] 25.0 mmol/L Normal 22.0-26.0 [facility] Comment on above: Performed By: #### P OCGLUC #### [facility] [address] [place] [address] Dr. Deidre Tijerina LPM [facility] Comment on above: Performed By: #### P OCGLUC #### [facility] [address] [address] [address] Deirde Tijerina MINUTE VOLUME 21 L Normal [facility] Comment on above: Performed By: #### P OCGLUC #### [facility] [address] [place] [address] Dr. Deidre Tijerina Oxygen (Bld) [Partial pressure] 83.4 mm[Hg] Normal 80.0-100.0 [facility] Comment on above: Performed By: #### P OCGLUC #### [facility] [address] [place] [address] Dr. Deidre Tijerina Oxygen saturation in Blood 97.5 % Normal 95.0-100.0 [facility] Comment on above: Performed By: #### P OCGLUC #### [facility] [address] [place] [address] Dr. Deidre Tijerina PCO2 36.2 mmHg Normal 35.0-45.0 [facility] Comment on above: Performed By: #### P OCGLUC #### [facility] [address] [place] [address] Dr. Deidre Tijerina PEEP 8 [facility] Comment on above: Performed By: #### P OCGLUC #### [facility] [address] [place] [address] Dr. Deidre Tijerina pH (Bld) 7.440 [pH] Normal 7.350-7.450 [facility] Comment on above: Performed By: #### P OCGLUC #### [facility] [address] [place] [address] Dr. Deidre Tijerina PIP 17 Normal [facility] Comment on above: Performed By: #### P OCGLUC #### [facility] [address] [place] [address] Dr. Deidre Tijerina PS 8 Normal [facility] Comment on above: Performed By: #### P OCGLUC #### [facility] [address] [place] [address] Dr. Deidre Tijerina PUNCTURE SITE RR Normal [facility] Comment on above: Performed By: #### P OCGLUC #### [facility] [address] [place] [address] Dr. Deidre Tijerina RATE 14 bpm [facility] Comment on above: Performed By: #### P OCGLUC #### [facility] [address] [place] [address] Dr. Deidre Tijerina VENT MODE [facility] Comment on above: Performed By: #### P OCGLUC #### [facility] [address] [place] [address] Dr. Deidre Tijerina VT 945 ML [facility] Comment on above: Performed By: #### P OCGLUC #### [facility] [address] [place] [address] Dr. Deidre Tijerina BNPon 08-18-2022 Natriuretic peptide B (Bld) [Mass/Vol] 2561.0 pg/mL Critically high <=1,800.0 [facility] Comment on above: Performed By: #### P OCGLUC #### [facility] [address] [place] [address] Dr. Deidre Tijerina CBC W MANUAL DIFFon 08-18-20 ANISOCYTOSIS 1+ [facility] Comment on above: Performed By: #### C BCMAN #### [facility] [address] [place] [address] Dr. Deidre Tijerina ATYPICAL LYMPH # Normal [facility] Comment on above: Performed By: #### C BCMAN #### [facility] [address] [place] [address] Dr. Deidre Tijerina ATYPICAL LYMPH % Normal [facility] Comment on above: Performed By: #### C BCMAN #### [facility] [address] [place] [address] Dr. Deidre Tijerina BAND # 1.2 103/ul Critically high 0.0-0.3 [facility] Comment on above: Performed By: #### C BCMAN #### [facility] [address] [address] [address] Deidre Tijerina BAND % 7 % Critically high 0-5 [facility] Comment on above: Performed By: #### C BCMAN #### [facility] [address] [address] [address] Deidre Tijerina BASOM # 0.00 103/ul Normal 0.00-0.10 [facility] Comment on above: Performed By: #### C BCMAN #### [facility] [address] [address] [address] Deidre Tijerina BASOM % 0.0 % Critically low 0.2-2.0 [facility] Comment on above: Performed By: #### C BCNICOLASA #### [facility] [address] [place] [address] Dr. Deidre Tijerina BLAST # Normal [facility] Comment on above: Performed By: #### C BCNICOLASA #### [facility] [address] [place] [address] Dr. Deidre Tijerina BLAST % Normal [facility] Comment on above: Performed By: #### C BCNICOLASA #### [facility] [address] [place] [address] Dr. Deidre Tijerina CORRECTED WBC Normal 4.0-11.0 [facility] Comment on above: Performed By: #### C BCNICOLASA #### [facility] [address] [place] [address] Dr. Deidre Tijerina EOS # 0.17 103/ul Normal 0.00-0.70 [facility] Comment on above: Performed By: #### C BCNICOLASA #### [facility] [address] [place] [address] Dr. Deidre Tijerina EOS% 1.0 % Normal 0.9-7.0 [facility] Comment on above: Performed By: #### C BCNICOLASA #### [facility] [address] [place] [address] Dr. Deidre Tijerina HCT 34.8 % Critically low 42.0-54.0 [facility] Comment on above: Performed By: #### C BCMAN #### [facility] [address] [place] [address] Dr. Deidre Tijerina HGB 11.5 g/dl Critically low 14.0-18.0 [facility] Comment on above: Performed By: #### C BCMAN #### [facility] [address] [address] [address] Deidre Tijerina LYMPHM # 1.20 103/ul Normal 1.20-3.80 [facility] Comment on above: Performed By: #### C BCMAN #### [facility] [address] [place] [address] Dr. Deidre Tijerina LYMPHM% 7.0 % Critically low 20.5-60.0 [facility] Comment on above: Performed By: #### C BCNICOLASA #### [facility] [address] [place] [address] Dr. Deidre Tijerina MCH 31.5 pg Normal 25.9-34.0 [facility] Comment on above: Performed By: #### C BCNICOLASA #### [facility] [address] [place] [address] Dr. Deidre Tijerina MCHC 33.0 g/dl Normal 29.9-35.2 [facility] Comment on above: Performed By: #### C BCNICOLASA #### [facility] [address] [place] [address] Dr. Deidre Tijerina MCV 95.3 fL Critically high 80.0-94.0 [facility] Comment on above: Performed By: #### C BCMAN #### [facility] [address] [place] [address] Dr. Deidre Tijerina METAMYELOCYTE # Normal [facility] Comment on above: Performed By: #### C BCMAN #### [facility] [address] [place] [address] Dr. Deidre Tijerina METAMYELOCYTE % Normal [facility] Comment on above: Performed By: #### C BCMAN #### [facility] [address] [address] [address] Deidre Tijerina MONOM# 1.03 103/ul Critically high 0.30-0.80 [facility] Comment on above: Performed By: #### C ADALGISA #### [facility] [address] [place] [address] Dr. Deidre Tijerina MONOM% 6.0 % Normal 1.7-12.0 [facility] Comment on above: Performed By: #### C ADALGISA #### [facility] [address] [place] [address] Dr. Deidre Tijerina MPV 8.7 fL Critically low 9.5-13.5 [facility] Comment on above: Performed By: #### C ADALGISA #### [facility] [address] [place] [address] Dr. Deidre Tijerina MYELOCYTE # Normal [facility] Comment on above: Performed By: #### C ADALGISA #### [facility] [address] [place] [address] Dr. Deidre Tijerina MYELOCYTE % Normal [facility] Comment on above: Performed By: #### C ADALGISA #### [facility] [address] [place] [address] Dr. Deidre Tijerina NRBC Normal [facility] Comment on above: Performed By: #### C ADALGISA #### [facility] [address] [place] [address] Dr. Deidre Tijerina PLT 212 103/ul Normal 150-450 [facility] Comment on above: Performed By: #### C ADALGISA #### [facility] [address] [place] [address] Dr. Deidre Tijerina RBC 3.65 106/ul Critically low 4.70-6.[address] [facility] Comment on above: Performed By: #### C ADALGISA #### [facility] [address] [place] [address] Dr. Deidre Tijerina RDW 14.0 % Normal 11.0-15.0 [facility] Comment on above: Performed By: #### C ADALGISA #### [facility] [address] [place] [address] Dr. Deidre Tijerina SEG # 13.59 103/ul Critically high 1.40-6.[address] [facility] Comment on above: Performed By: #### C ADALGISA #### [facility] [address] [address] [address] Deidre Tijerina SEG % 79.0 % Critically high 43.0-75.0 [facility] Comment on above: Performed By: #### C ADALGISA #### [facility] [address] [address] [address] Deidre Tijerina WBC 17.2 103/ul Critically high 4.0-11.0 [facility] Comment on above: Performed By: #### C ADALGISA #### [facility] [address] [address] CHEST WO CONon [...] by: NOREEN KELLY Date: 2022-08-18 12:12 Normal [facility] CULTURE BLOODon 08-18-2022 Microscopic examination of blood, culture Culture Observations: NO GROWTH AT 5 DAYS. Normal [facility] Comment on above: Performed By: #### C BONILLA #### [facility] [address] [address] [address] Deidre Tijerina Microscopic examination of blood, culture Culture Observations: NO GROWTH AT 5 DAYS. Normal [facility] Comment on above: Performed By: #### C BC #### [facility] [address] [place], [place] [address] Dr. Deidre Tijerina Covid-19 PCR ([facility])on 07-25 SARS-CoV-2 (COVID-19) RNA ISA+probe Ql (Unsp spec) Not detected Normal NOT DETECTED [facility] Comment on above: Result Comment: When [...] for this test is supported by the Analytical Laboratory Technician of Health and Human Service's declaration that [...] used). Performed By: #### P OCGLUC #### [facility] [address] [place], [place] [address] Dr. Deidre Tijerina ECHO LIMITED STUDYon 022 ECHO LIMITED STUDY Patient: UMM MCQUEEN Exam Date: 08/18/2022 : 1945 Gender:M Ordering : SHAIKH Zay CARRERA . Admission #: [id number] Family : Order #: [id number] CLICK HERE TO VIEW EXAM ECHOCARDIOGRAM REPORT [...] M.D. on 08/26/2022 at 09:00 Normal [facility] INFLUENZA A AND B AGon 08-18 INFLUANEGH SEE BELOW Normal [facility] Comment on above: Result Comment: Nega tive for Flu A protein angiten. Infection due to Flu A cannot be ruled out. Flu A angiten in the sample may be below the detection limit of the test. Performed By: #### P OCGLUC #### [facility] [address] [address] [address] Deidre Tijerina [facility] SEE BELOW Normal [facility] Comment on above: Result Comment: Nega tive for Flu B protein antigen. Infection due to Flu B cannot be ruled out. Flu B antigen in the sample may be below the detection limit of the test. Performed By: #### P OCGLUC #### [facility] [address] [address] [address] Deidre Tijerina INFLUENZA A AG Negative Normal NEGATIVE SEE COMMENT [facility] Comment on above: Performed By: #### P OCGLUC #### [facility] [address] [address] [address] Deidre Tijerina INFLUENZA B AG Negative Normal NEGATIVE SEE COMMENT [facility] Comment on above: Performed By: #### P OCGLUC #### [facility] [address] [place] [address] Dr. Deidre Tijerina INTERNAL CONTROLS Within Normal Limits Normal Wi thin Normal Limits [facility] Comment on above: Performed By: #### P OCGLUC #### [facility] [address] [place] [address] Dr. Deidre Tijerina LACTATE/LACTIC ACIDon 2021 Lactate [Moles/Vol] 2.0 mmol/L Critically high 0.4-1.9 [facility] Comment on above: Performed By: #### P OCGLUC #### [facility] [address] [place] [address] Dr. Deidre Tijerina Lactate [Moles/Vol] 2.0 mmol/L Critically high 0.4-1.9 [facility] Comment on above: Performed By: #### P OCGLUC #### [facility] [address] [place] [address] Dr. Deidre Tijerina POINT OF CARE GLUCOSEon 07-25 Glucose [Mass/Vol] 228 mg/dL Critically high 74-106 [facility] Comment on above: Performed By: #### P OCGLUC #### [facility] [address] [address] [address] Deidre Tijerina Glucose [Mass/Vol] 119 mg/dL Critically high 74-106 [facility] Comment on above: Performed By: #### P OCGLUC #### [facility] [address] [address] [address] Deidre Tijerina Glucose [Mass/Vol] 161 mg/dL Critically high 74-106 [facility] Comment on above: Performed By: #### C BC #### [facility] [address] [address] [address] Deidre Tijerina PROF 14(COMP METB)on 022 Albumin [Mass/Vol] 2.9 g/dL Critically low 3.4-5.[address] [facility] Comment on above: Performed By: #### P OCGLUC #### [facility] [address] [place] [address] Dr. Deidre Tijerina Albumin/Globulin [Mass ratio] 0.6 {ratio} Normal [facility] Comment on above: Performed By: #### P OCGLUC #### [facility] [address] [address] [address] Deidre Tijerina ALP [Catalytic activity/Vol] 71 U/L Normal 46-116 [facility] Comment on above: Performed By: #### P OCGLUC #### [facility] [address] [address] [address] Deidre Tijerina ALT [Catalytic activity/Vol] 13 U/L Critically low 16-63 [facility] Comment on above: Performed By: #### P OCGLUC #### [facility] [address] [address] [address] Deidre Tijerina Anion gap [Moles/Vol] 12.3 mmol/L Normal [facility] Comment on above: Performed By: #### P OCGLUC #### [facility] [address] [address] [address] Deidre Tijerina AST [Catalytic activity/Vol] 14 U/L Critically low 15-37 [facility] Comment on above: Performed By: #### P OCGLUC #### [facility] [address] [place] [address] Dr. Deidre Tijerina Bilirubin [Mass/Vol] 2.6 mg/dL Critically high 0.2-1.0 [facility] Comment on above: Performed By: #### P OCGLUC #### [facility] [address] [address] [address] Deidre Tijerina Calcium [Mass/Vol] 8.5 mg/dL Normal 8.5-10.1 [facility] Comment on above: Performed By: #### P OCGLUC #### [facility] [address] [address] [address] Deidre Tijerina Chloride [Moles/Vol] 98 mmol/L Normal 98-107 [facility] Comment on above: Performed By: #### P OCGLUC #### [facility] [address] [address] [address] Deidre Tijerina CO2 [Moles/Vol] 26.0 mmol/L Normal 21.0-32.0 [facility] Comment on above: Performed By: #### P OCGLUC #### [facility] [address] [address] [address] Deidre Tijerina Creatinine [Mass/Vol] 1.43 mg/dL Critically high 0.70-1.30 [facility] Comment on above: Performed By: #### P OCGLUC #### [facility] [address] [address] [address] Deidre Tijerina EGFR-AF EQUATORIAL GUINEAN 58 mL/min/1.73m2 Critically low >=60 [facility] Comment on above: Performed By: #### P OCGLUC #### [facility] [address] [address] [address] Deidre Tijerina EGFR-NON AF EQUATORIAL GUINEAN 48 mL/min/1.73m2 Critically low >=60 [facility] Comment on above: Performed By: #### P OCGLUC #### [facility] [address] [address] [address] Deidre Tijerina Globulin (S) [Mass/Vol] 5.0 g/dL Normal [facility] Comment on above: Performed By: #### P OCGLUC #### [facility] [address] [address] [address] Deidre Tijerina Glucose [Mass/Vol] 165 mg/dL Critically high 74-106 [facility] Comment on above: Performed By: #### P OCGLUC #### [facility] [address] [address] [address] Deidre Tijerina Potassium [Moles/Vol] 4.3 mmol/L Normal 3.5-5.1 [facility] Comment on above: Performed By: #### P OCGLUC #### [facility] [address] [address] [address] Deidre Tijerina Protein [Mass/Vol] 7.9 g/dL Normal 6.4-8.2 [facility] Comment on above: Performed By: #### P OCGLUC #### [facility] [address] [address] [address] Deidre Tijerina Sodium [Moles/Vol] 132 mmol/L Critically low 136-145 [facility] Comment on above: Performed By: #### P OCGLUC #### [facility] [address] [address] [address] Deidre Tijerina Urea nitrogen [Mass/Vol] 25.0 mg/dL Critically high 7.0-18.0 [facility] Comment on above: Performed By: #### P OCGLUC #### [facility] [address] [address] [address] Deidre Tijerina Urea nitrogen/Creatinine [Mass ratio] 17.5 mg/mg Normal [facility] Comment on above: Performed By: #### P OCGLUC #### [facility] [address] [address] [address] Deidre Tijerina TROPONIN, HIGH SENSITIVITYon 08-18-2022 HSTROP 8.4 pg/mL Normal 4.0-76.1 [facility] Comment on above: Result Comment: CUT- OFF POINTS HAVE BEEN ESTABLISHED BASED ON THE FOURTH UNIVERSAL DEFINITIONS OF MYOCARDIAL INFARCTION. THE UPPER REFERENCE LIMIT (URL) OF TROPONIN, DEFINED THE 99TH PERCENTILE OF cTnI DISTRIBUTION IN A REFERENCE POPULATION, HAS BEEN CONFIRMED THE DECISION THRESHOLD FOR RI DIAGNOSIS. Performed By: #### P OCGLUC #### [facility] [address] [address] [address] Deidre Tijerina XR CHEST 1 Von [...] left costophrenic angle is excluded from the [id number]. 3. No overt edema, failure, pneumothorax, or sizable effusion noted within limits of study. 4. Old healed nondisplaced anterior right fifth rib fracture deformity faintly suggested. Electronically authenticated by: ESTUARDO ABEBE Date: 2022-08-18 09:37 Normal [facility] STRESS/REST MULTIon 08-04 [place] STRESS/REST MULTI Patient: ARIANNE MCQUEEN Exam Date: 08/04/2022 : 1945 Gender:M Ordering : DR CATINA SALAZAR M.D. Admission #: [id number] Family : Order #: [id number] CLICK HERE TO VIEW EXAM RADIOLOGY REPORT [...] study was normal per attending physician Dr. Axle Martell . For more details please see [...] Banks MD on 08/07/2022 at 08:29 Normal [facility] BNPon 07-14-2022 Natriuretic peptide B (Bld) [Mass/Vol] 164.0 pg/mL Normal <=1,800.0 [facility] Comment on above: Performed By: #### B INTERNET MANAGER, BMP #### [facility] [address] [place] [address] Dr. Deidre Tijerina Follow-Upon 07-14-2022 Follow-Up [id number] Luis M Mcqueen jennifer Desai 1945 M Date Provider Department Center 07/14/2022 CATINA ROBERTS [facility] Family History Problem Relation Age of Onset Coronary artery disease Mother Family Status - Relation Status Age at Mother Level of Service:59010 [place] OFFICE/OUTPATIENT ESTABLISHED MOD MDM 30-39 MIN Reason for Visit and Comments: Coronary Artery Disease [187] Hypertension [405515] Hyperlipidemia [182] Normal [facility] PROF CHEM 8 (BAS METB)on Anion gap [Moles/Vol] 9.2 mmol/L Normal [facility] Comment on above: Performed By: #### B INTERNET MANAGER, BMP #### [facility] [address] [place] [address] Dr. Deidre Tijerina Calcium [Mass/Vol] 8.4 mg/dL Critically low 8.5-10.1 [facility] Comment on above: Performed By: #### B INTERNET MANAGER, BMP #### [facility] [address] [place] [address] Dr. Deidre Tijerina Chloride [Moles/Vol] 106 mmol/L Normal 98-107 [facility] Comment on above: Performed By: #### B INTERNET MANAGER, BMP #### [facility] [address] [place] [address] Dr. Deidre Tijerina CO2 [Moles/Vol] 27.0 mmol/L Normal 21.0-32.0 [facility] Comment on above: Performed By: #### B INTERNET MANAGER, BMP #### [facility] [address] [address] [address] Deidre Tijerina Creatinine [Mass/Vol] 1.38 mg/dL Critically high 0.70-1.30 [facility] Comment on above: Performed By: #### B INTERNET MANAGER, BMP #### [facility] [address] [address] [address] Deidre Tijerina EGFR-AF EQUATORIAL GUINEAN =60 Normal >=60 [facility] Comment on above: Performed By: #### B INTERNET MANAGER, BMP #### [facility] [address] [place] [address] Dr. Deidre Tijerina EGFR-NON AF EQUATORIAL GUINEAN 50 mL/min/1.73m2 Critically low >=60 [facility] Comment on above: Performed By: #### B INTERNET MANAGER, BMP #### [facility] [address] [place] [address] Dr. Deidre Tijerina Glucose [Mass/Vol] 95 mg/dL Normal 74-106 [facility] Comment on above: Performed By: #### B INTERNET MANAGER, BMP #### [facility] [address] [place] [address] Dr. Deidre Tijerina Potassium [Moles/Vol] 5.2 mmol/L Critically high 3.5-5.1 [facility] Comment on above: Performed By: #### B INTERNET MANAGER, BMP #### [facility] [address] [place] [address] Dr. Deidre Tijerina Sodium [Moles/Vol] 137 mmol/L Normal 136-145 [facility] Comment on above: Performed By: #### B INTERNET MANAGER, BMP #### [facility] [address] [address] [address] Deidre Tijerina Urea nitrogen [Mass/Vol] 25.0 mg/dL Critically high 7.0-18.0 [facility] Comment on above: Performed By: #### B INTERNET MANAGER, BMP #### [facility] [address] [place], [place] [address] Dr. Deidre Tijerina Urea nitrogen/Creatinine [Mass ratio] 18.1 mg/mg Normal [facility] Comment on above: Performed By: #### B CUAUHTEMOC, CLEMENCIA #### [facility] [id number] Deidre Tijerina ECHOCARDIO M/2D COMPLETEon 0 05-08-2022 ECHOCARDIO M/2D COMPLETE Patient: ARIANNE MCQUEEN Exam Date: 05/08/2022 : 1945 Gender:M Ordering : DR CATINA SALAZAR M.D. Admission #: [id number] Family : DR MAL BARNES D.O. Order #: [id number] CLICK HERE TO VIEW EXAM ECHOCARDIOGRAM REPORT [...] Salazar M.D. on 05/09/2022 at 19:48 Normal [facility] XR LSPINE MIN 4 VIEWSon 04-24 [...] NOREEN KELLY Date: 2022-05-08 10:47 Normal [facility] PROF CHEM 8 (BAS METB)on Anion gap [Moles/Vol] 6.8 mmol/L Normal [facility] Comment on above: Performed By: #### P OCGLUC #### [facility] [address] [address] [address] Deidre Tijerina Calcium [Mass/Vol] 8.8 mg/dL Normal 8.5-10.1 [facility] Comment on above: Performed By: #### P OCGLUC #### [facility] [address] [address] [address] Deidre Tijerina Chloride [Moles/Vol] 102 mmol/L Normal 98-107 [facility] Comment on above: Performed By: #### P OCGLUC #### [facility] [address] [address] [address] Deidre Tijerina CO2 [Moles/Vol] 28.1 mmol/L Normal 21.0-32.0 [facility] Comment on above: Performed By: #### P OCGLUC #### [facility] [address] [address] [address] Deidre Tijerina Creatinine [Mass/Vol] 1.84 mg/dL Critically high 0.70-1.30 [facility] Comment on above: Performed By: #### P OCGLUC #### [facility] [address] [address] [address] Deidre Tijerina EGFR-AF EQUATORIAL GUINEAN 43 mL/min/1.73m2 Critically low >=60 [facility] Comment on above: Performed By: #### P OCGLUC #### [facility] [address] [address] [address] Deidre Tijerina EGFR-NON AF EQUATORIAL GUINEAN 36 mL/min/1.73m2 Critically low >=60 [facility] Comment on above: Performed By: #### P OCGLUC #### [facility] [address] [address] [address] Deidre Tijerina Glucose [Mass/Vol] 112 mg/dL Critically high 74-106 T [facility] Comment on above: Performed By: #### P OCGLUC #### [facility] [address] [address] [address] Deidre Tijerina Potassium [Moles/Vol] 4.9 mmol/L Normal 3.5-5.1 [facility] Comment on above: Performed By: #### P OCGLUC #### [facility] [address] [address] [address] Deidre Tijerina Sodium [Moles/Vol] 132 mmol/L Critically low 136-145 Th [facility] Comment on above: Performed By: #### P OCGLUC #### [facility] [address] [address] [address] Deidre Tijerina Urea nitrogen [Mass/Vol] 40.0 mg/dL Critically high 7.0-18.0 [facility] Comment on above: Performed By: #### P OCGLUC #### [facility] [address] [address] [address] Deidre Tijerina Urea nitrogen/Creatinine [Mass ratio] 21.7 mg/mg Normal [facility] Comment on above: Performed By: #### P OCGLUC #### [facility] [address] [address] [address] Deidre Tijerina PROF CHEM 8 (BAS METB)on 08- 22-2022 Anion gap [Moles/Vol] 8.9 mmol/L Normal [facility] Comment on above: Performed By: #### B MP #### [facility] [address] [place] [address] Dr. Deidre Tijerina Calcium [Mass/Vol] 8.4 mg/dL Critically low 8.5-10.1 [facility] Comment on above: Performed By: #### B MP #### [facility] [address] [address] [address] Deidre Tijerina Chloride [Moles/Vol] 102 mmol/L Normal 98-107 [facility] Comment on above: Performed By: #### B MP #### [facility] [address] [place] [address] Dr. Deidre Tijerina CO2 [Moles/Vol] 25.9 mmol/L Normal 21.0-32.0 [facility] Comment on above: Performed By: #### B MP #### [facility] [address] [place] [address] Dr. Deidre Tijerina Creatinine [Mass/Vol] 1.20 mg/dL Normal 0.70-1.30 [facility] Comment on above: Performed By: #### B MP #### [facility] [address] [place] [address] Dr. Deidre Tijerina EGFR-AF EQUATORIAL GUINEAN >60 Normal >=60 [facility] Comment on above: Performed By: #### B MP #### [facility] [address] [place] [address] Dr. Deidre Tijerina EGFR-NON AF EQUATORIAL GUINEAN 59 mL/min/1.73m2 Critically low >=60 [facility] Comment on above: Performed By: #### B MP #### [facility] [address] [address] [address] Deidre Tijerina Glucose [Mass/Vol] 117 mg/dL Critically high 74-106 T [facility] Comment on above: Performed By: #### B MP #### [facility] [address] [place] [address] Dr. Deidre Tijerina Potassium [Moles/Vol] 4.8 mmol/L Normal 3.5-5.1 [facility] Comment on above: Performed By: #### B MP #### [facility] [address] [place], [place] [address] Dr. Deidre Tijerina Sodium [Moles/Vol] 132 mmol/L Critically low 136-145 Th [facility] Comment on above: Performed By: #### B MP #### [facility] [address] [place], [place] [address] Dr. Deidre Tijerina Urea nitrogen [Mass/Vol] 25.0 mg/dL Critically high 7.0-18.0 [facility] Comment on above: Performed By: #### B MP #### [facility] [address] [place], [place] [address] Dr. Deidre Tijerina Urea nitrogen/Creatinine [Mass ratio] 20.8 mg/mg Normal [facility] Comment on above: Performed By: #### B MP #### [facility] [address] [place], [place] [address] Dr. Deidre Tijerina US CHESTon 08-05-2021 US CHEST Normal [facility] Comment on above: Order Comment: serom a in the chest needs a drain placed BASIC METABOLIC PANELon 05-24 Calcium [Mass/Vol] 8.4 mg/dL Low 8.6-10.3 [facility] Comment on above: Order Comment: this is not a nurse draw. lab draw pleaseNo: Do not add to previous draw Performed By: #### 0 0071 ####[facility] [place] [address], [facility] Chloride [Moles/Vol] 102 mmol/L Normal 98-107 [facility] Comment on above: Order Comment: this is not a nurse draw. lab draw pleaseNo: Do not add to previous draw Performed By: #### 0 0071 ####[facility] [place] [address], [facility] CO2 [Moles/Vol] 25 mmol/L Normal 21-31 [facility] Comment on above: Order Comment: this is not a nurse draw. lab draw pleaseNo: Do not add to previous draw Performed By: #### 0 0071 ####[facility] [facility] [address], [facility] Creatinine [Mass/Vol] 2.56 mg/dL High 0.70-1.30 [facility] Comment on above: Order Comment: this is not a nurse draw. lab draw pleaseNo: Do not add to previous draw Performed By: #### 0 0071 ####[facility] [place] [address], [facility] eGFR- 30 ml/min/1.73sq m Abnormal >60 [facility] Comment on above: Order Comment: this is not a nurse draw. lab draw pleaseNo: Do not add to previous draw Result Comment: Calc ulation may not be valid for patients over 70 years Performed By: #### 0 0071 ####[address] [place] [address], [facility] eGFR- non- 24 ml/min/1.73sq m Abnormal >60 [facility] Comment on above: Order Comment: this is not a nurse draw. lab draw pleaseNo: Do not add to previous draw Result Comment: Calc ulation may not be valid for patients over 70 years Performed By: #### 0 0071 ####[address] [place] [address], [facility] Glucose [Mass/Vol] 182 mg/dL High 70-100 [facility] Comment on above: Order Comment: this is not a nurse draw. lab draw pleaseNo: Do not add to previous draw Performed By: #### 0 0071 ####[address] [place] [address], [facility] Potassium [Moles/Vol] 4.5 mmol/L Normal 3.5-5.1 [facility] Comment on above: Order Comment: this is not a nurse draw. lab draw pleaseNo: Do not add to previous draw Performed By: #### 0 0071 ####[facility] [facility] [address], [facility] Sodium [Moles/Vol] 133 mmol/L Low 136-145 [facility] Comment on above: Order Comment: this is not a nurse draw. lab draw pleaseNo: Do not add to previous draw Performed By: #### 0 0071 ####[facility] [facility] [address], [facility] Urea nitrogen [Mass/Vol] 28 mg/dL High 7-25 [facility] Comment on above: Order Comment: this is not a nurse draw. lab draw pleaseNo: Do not add to previous draw Performed By: #### 0 0071 ####[facility] [facility] [address], [facility] POC GLUCOSE LABon 06-02-2021 Glucose [Mass/Vol] 246 mg/dL High 70-100 [facility] Comment on above: Performed By: #### 8 5499 ####[facility] [facility] [address], [facility] Glucose [Mass/Vol] 109 mg/dL High 70-100 [facility] Comment on above: Performed By: #### 8 5499 ####[facility] [facility] [address], [facility] POC SARS COV2 ANTIGEN NEGATI VEon 06-02-2021 POC SARS COV2 ANTIGEN NEG Negative Normal NEGATIVE [facility] Comment on above: Result Comment: Nega [...] forthe qualitative detection of nucleocapsid protein antigen [id number] in direct nasal swabs from individuals within [...] Certificate ofAccreditation. Performed By: #### 3 1976 ####[address] POC SARS COV2 ANTIGEN NEG Negative Normal NEGATIVE [facility] Comment on above: Result Comment: Nega [...] of clinicalsigns and symptoms consistent with COVID-19.The [employer] COVID-19 Ag Card is a lateral flow immunoassay intended forthe qualitative detection of nucleocapsid protein antigen [id number] in direct nasal swabs from individuals within [...] Certificate ofAccreditation. Performed By: #### 3 1976 ####[facility] [facility] [address], [facility] POC GLUCOSE LABon 06-01-2021 Glucose [Mass/Vol] 142 mg/dL High 70-100 [facility] Comment on above: Performed By: #### 8 [id number] ####[facility] [facility] [place] [address], [facility] Glucose [Mass/Vol] 132 mg/dL High 70-100 [facility] Comment on above: Performed By: #### 8 5499 ####[facility] [facility] [place] [address], [facility] Glucose [Mass/Vol] 167 mg/dL High 70-100 [facility] Comment on above: Performed By: #### 8 5499 ####[facility] [facility].[address] Glucose [Mass/Vol] 113 mg/dL High 70-100 [facility] Comment on above: Performed By: #### 8 [id number] ####[facility] APTTon 05-31-2021 aPTT Coag (Bld) [Time] 29.3 s Normal 25.0-35.0 [facility] Comment on above: Result Comment: ALL [...] THIS PURPOSE. Performed By: #### 5 7307, [id number] ####[facility] [facility].[address] CBC W/DIFFon 05-31-2021 ABS IMM GRANS 0.1 10*3/uL Normal 0.0-0.2 [facility] Comment on above: Order Comment: No: D o not add to previous draw Performed By: #### 5 0103 ####[facility] [place] [address], [facility] ABS NEUTROPHILS 4.9 10*3/uL Normal 1.6-7.6 [facility] Comment on above: Order Comment: No: D o not add to previous draw Performed By: #### 5 0103 ####[facility] [facility] [place] [address], [facility] Basophils (Bld) [#/Vol] 0.1 10*3/uL Normal 0.0-0.2 [facility] Comment on above: Order Comment: No: D o not add to previous draw Performed By: #### 5 0103 ####[facility] [facility] [address], [facility] Basophils/100 WBC (Bld) 0.6 % Normal 0.0-1.0 [facility] Comment on above: Order Comment: No: D o not add to previous draw Performed By: #### 5 0103 ####[facility] [place] [address], [facility] Eosinophils (Bld) [#/Vol] 0.4 10*3/uL Normal 0.0-0.5 [facility] Comment on above: Order Comment: No: D o not add to previous draw Performed By: #### 5 3 ####[facility] [facility] [address], [facility] Eosinophils/100 WBC (Bld) 5.3 % Normal 0.0-6.0 [facility] Comment on above: Order Comment: No: D o not add to previous draw Performed By: #### 5 0103 ####[facility] [place] [address], [facility] Erythrocyte distribution width (RBC) [Ratio] 15.7 % High 11.5-15.0 [facility] Comment on above: Order Comment: No: D o not add to previous draw Performed By: #### 5 0103 ####[facility] [facility].[address] Hematocrit (Bld) [Volume fraction] 27.6 % Low 39.0-50.0 [facility] Comment on above: Order Comment: No: D o not add to previous draw Performed By: #### 3 ####[facility] [facility] [address], [facility] Hemoglobin (Bld) [Mass/Vol] 8.5 g/dL Low 13.0-17.0 [facility] Comment on above: Order Comment: No: D o not add to previous draw Performed By: #### 102 ####[facility] IMMATURE GRANS 1.1 % High 0.0-1.0 The [facility] Comment on above: Order Comment: No: D o not add to previous draw Performed By: #### 102 ####[facility] Lymphocytes (Bld) [#/Vol] 1.7 10*3/uL Normal 1.2-4.0 [facility] Comment on above: Order Comment: No: D o not add to previous draw Performed By: #### 102 ####[facility] Lymphocytes/100 WBC (Bld) 21.4 % Normal 20.0-45.0 [facility] Comment on above: Order Comment: No: D o not add to previous draw Performed By: #### 5 3 ####[facility] [place] [address], [facility] MCH (RBC) [Entitic mass] 29.2 pg Normal 27.0-33.0 [facility] Comment on above: Order Comment: No: D o not add to previous draw Performed By: #### 5 3 ####[facility] MCHC (RBC) [Mass/Vol] 30.8 g/dL Low 32.0-35.0 [facility] Comment on above: Order Comment: No: D o not add to previous draw Performed By: #### 5 0103 ####[facility] MCV (RBC) [Entitic vol] 94.8 fL Normal 82.0-98.0 [facility] Comment on above: Order Comment: No: D o not add to previous draw Performed By: #### 5 0103 ####[facility] Monocytes (Bld) [#/Vol] 0.8 10*3/uL Normal 0.1-1.0 [facility] Comment on above: Order Comment: No: D o not add to previous draw Performed By: #### 5 0103 ####[facility] MONOS 9.7 % Normal 5.0-12.0 [facility] Comment on above: Order Comment: No: D o not add to previous draw Performed By: #### 5 3 ####[facility] Neutrophils/100 WBC (Bld) 61.9 % Normal 40.0-72.0 [facility] Comment on above: Order Comment: No: D o not add to previous draw Performed By: #### 5 0103 ####[facility] [place] [address], [facility] Nucleated RBC/100 WBC (Bld) [Ratio] 0 % Normal 0-0 [facility] Comment on above: Order Comment: No: D o not add to previous draw Performed By: #### 5 0103 ####[facility] [facility].[address] PLAT CNT 351 10*3/uL Normal 150-400 [facility] Comment on above: Order Comment: No: D o not add to previous draw Performed By: #### 5 0103 ####[facility] [facility] [address], [facility] RBC (Bld) [#/Vol] 2.91 10*6/uL Low 4.20-5.70 The [facility] Comment on above: Order Comment: No: D o not add to previous draw Performed By: #### 5 0103 ####[facility] [facility] [address], [facility] WBC (Bld) [#/Vol] 7.96 10*3/uL Normal 4.00-10.60 [facility] Comment on above: Order Comment: No: D o not add to previous draw Performed By: #### 5 0103 ####[facility] [facility].[address] COMP METABOLIC PANELon 05-31 Albumin [Mass/Vol] 2.9 g/dL Low 3.5-5.7 [facility] Comment on above: Order Comment: No: D o not add to previous drawNurse draw Performed By: #### 1 0, 34001 ####[facility] [facility].[address] ALKALINE PHOSPH 70 IU/L Normal 34-104 [facility] Comment on above: Order Comment: No: D o not add to previous drawNurse draw Performed By: #### 1 0, 45193 ####[facility] [facility].[address] ALT [Catalytic activity/Vol] 9 U/L Normal 7-52 [facility] Comment on above: Order Comment: No: D o not add to previous drawNurse draw Performed By: #### 1 0, 02710 ####[facility] [id number], [place] AST [Catalytic activity/Vol] 11 U/L Low 13-39 [facility] Comment on above: Order Comment: No: D o not add to previous drawNurse draw Performed By: #### 1 0, [id number] ####[facility] [place] [address], [place] Bilirubin [Mass/Vol] 0.6 mg/dL Normal 0.3-1.0 [facility] Comment on above: Order Comment: No: D o not add to previous drawNurse draw Performed By: #### 1 0, 29660 ####[facility] [place] [address], [place] Calcium [Mass/Vol] 8.4 mg/dL Low 8.6-10.3 [facility] Comment on above: Order Comment: No: D o not add to previous drawNurse draw Performed By: #### 1 0, 70448 ####[facility] [place] [address], [place] Chloride [Moles/Vol] 102 mmol/L Normal 98-107 [facility] Comment on above: Order Comment: No: D o not add to previous drawNurse draw Performed By: #### 1 0, 04403 ####[facility] [place] [address], [place] CO2 [Moles/Vol] 27 mmol/L Normal 21-31 [facility] Comment on above: Order Comment: No: D o not add to previous drawNurse draw Performed By: #### 1 0, 99827 ####[facility] [place] [address], [place] Creatinine [Mass/Vol] 2.90 mg/dL High 0.70-1.30 [facility] Comment on above: Order Comment: No: D o not add to previous drawNurse draw Performed By: #### 1 0, 76382 ####[facility] [place] [address], [facility] eGFR- 26 ml/min/1.73sq m Abnormal >60 [facility] Comment on above: Order Comment: No: D o not add to previous drawNurse draw Result Comment: Calc ulation may not be valid for patients over 70 years Performed By: #### 1 0, 17320 ####[facility] [place] [address], [facility] eGFR- non- 21 ml/min/1.73sq m Abnormal >60 [facility] Comment on above: Order Comment: No: D o not add to previous drawNurse draw Result Comment: Calc ulation may not be valid for patients over 70 years Performed By: #### 1 0, 36793 ####[facility] [place] [address], [place] Glucose [Mass/Vol] 97 mg/dL Normal 70-100 The [facility] Comment on above: Order Comment: No: D o not add to previous drawNurse draw Performed By: #### 1 0, 44544 ####[facility] [facility] [address], [place] Potassium [Moles/Vol] 4.4 mmol/L Normal 3.5-5.1 [facility] Comment on above: Order Comment: No: D o not add to previous drawNurse draw Performed By: #### 1 0, 12197 ####[facility] [place] [address], [place] Protein [Mass/Vol] 6.5 g/dL Normal 6.0-8.3 [facility] Comment on above: Order Comment: No: D o not add to previous drawNurse draw Performed By: #### 1 0, 18035 ####[facility] [place] [address], [place] Sodium [Moles/Vol] 134 mmol/L Low 136-145 The [facility] Comment on above: Order Comment: No: D o not add to previous drawNurse draw Performed By: #### 1 0070, 23058 ####[facility] [place] [address], [place] Urea nitrogen [Mass/Vol] 31 mg/dL High 7-25 [facility] Comment on above: Order Comment: No: D o not add to previous drawNurse draw Performed By: #### 1 0, 65821 ####[facility] [place] [address], [place] MAGNESIUM BLOODon 05-31-2021 Magnesium [Mass/Vol] 1.8 mg/dL Low 1.9-2.7 [facility] Comment on above: Performed By: #### 1 69, 51237 ####[facility] [place] [address], [place] POC GLUCOSE LABon 05-31-2021 Glucose [Mass/Vol] 120 mg/dL High 70-100 The [facility] Comment on above: Performed By: #### 8 5499 ####[facility] [place] [address], [place] Glucose [Mass/Vol] 124 mg/dL High 70-100 [facility] Comment on above: Performed By: #### 8 5499 ####[facility] [place] [address], [place] Glucose [Mass/Vol] 136 mg/dL High 70-100 [facility] Comment on above: Performed By: #### 8 5499 ####[facility] [place] [address], [place] Glucose [Mass/Vol] 115 mg/dL High 70-100 [facility] Comment on above: Performed By: #### 8 5499 ####[facility] [facility] [address], [facility] PORTABLE CHEST 1 VIEWon PORTABLE CHEST 1 VIEW Normal [facility] Comment on above: Order Comment: evalu ate for CHF PROTHROMBIN TIMEon INR Coag (PPP) [Relative time] 1.13 {INR} Normal 0.91-1.16 [facility] Comment on above: Result Comment: ACCC P RECOMMENDED INR FOR WARFARIN THERAPY CONDITION INRPROPHYLAXIS OF VENOUS THROMBOSIS 2-3(HIGH-RISK SURGERY)TREATMENT OF VENOUS THROMBOSIS 2-3TREATMENT OF PULMONARY EMBOLISM 2-3PREVENTION OF SYSTEMIC EMBOLISM: 2-3 ACUTE MYOCARDIAL INFARCTION TISSUE HEART VALVES VALVULAR HEART DISEASE ATRIAL FIBRILLATION RECURRENT SYSTEMIC EMBOLISMMECHANICAL HEART VALVE 2.5-3.5 FROM: ORAL ANTICOAGULANTS. MECHANISM OF ACTION, CLINICALEFFECTIVENESS, AND OPTIMAL THERAPEUTIC RANGE. [id number]. Performed By: #### 5 7307, 44004 ####[facility] [facility] [address], [facility] PT Coag (PPP) [Time] 14.5 s Normal 12.3-14.8 [facility] Comment on above: Result Comment: ALL RESULTS MUST BE INTERPRETED WITH RESPECT TO BLOOD DRAWING ARTIFACTOR DILUTION ERROR OF ANTICOAGULANT AT THE TIME OF SAMPLING. Performed By: #### 5 7307, 36624 ####[facility] [facility] [place] [address], [facility] ALBUMIN BLOODon 05-30-2021 Albumin [Mass/Vol] 3.0 g/dL Low 3.5-5.7 [facility] Comment on above: Performed By: #### 1 69, , [id number] ####[facility] [facility] [place] [address], [facility] BASIC METABOLIC PANELon Calcium [Mass/Vol] 8.6 mg/dL Normal 8.6-10.3 [facility] Comment on above: Order Comment: No: D o not add to previous draw Performed By: #### 1 69, , 01279 ####[facility] [facility] [place] [address], [facility] Chloride [Moles/Vol] 102 mmol/L Normal 98-107 The [facility] Comment on above: Order Comment: No: D o not add to previous draw Performed By: #### 1 69, , ####[facility] [facility] [place] [address], [facility] CO2 [Moles/Vol] 25 mmol/L Normal 21-31 [facility] Comment on above: Order Comment: No: D o not add to previous draw Performed By: #### 1 69, , ####[facility] [facility] [place] [address], [facility] Creatinine [Mass/Vol] 2.49 mg/dL High 0.70-1.30 [facility] Comment on above: Order Comment: No: D o not add to previous draw Performed By: #### 1 69, , 54891 ####[facility] [place] [address], [facility] eGFR- 31 ml/min/1.73sq m Abnormal >60 The [facility] Comment on above: Order Comment: No: D o not add to previous draw Result Comment: Calc ulation may not be valid for patients over 70 years Performed By: #### 1 0, , 91989 ####[facility] [place] [address], [facility] eGFR- non- 25 ml/min/1.73sq m Abnormal >60 [facility] Comment on above: Order Comment: No: D o not add to previous draw Result Comment: Calc ulation may not be valid for patients over 70 years Performed By: #### 1 0, , 51974 ####[facility] [id number], [facility] Glucose [Mass/Vol] 100 mg/dL Normal 70-100 [facility] Comment on above: Order Comment: No: D o not add to previous draw Performed By: #### 1 0, , 51150 ####[facility] [id number], [facility] Potassium [Moles/Vol] 4.5 mmol/L Normal 3.5-5.1 [facility] Comment on above: Order Comment: No: D o not add to previous draw Performed By: #### 1 69, , ####[facility] [place] [address], [place] Sodium [Moles/Vol] 134 mmol/L Low 136-145 [facility] Comment on above: Order Comment: No: D o not add to previous draw Performed By: #### 1 69, , ####[facility] [id number], [place] Urea nitrogen [Mass/Vol] 32 mg/dL High 7-25 [facility] Comment on above: Order Comment: No: D o not add to previous draw Performed By: #### 1 69, , ####[facility] CBC COMPLETE BLOOD COUNTon 1 Erythrocyte distribution width (RBC) [Ratio] 15.7 % High 11.5-15.0 [facility] Comment on above: Order Comment: No: D o not add to previous draw Performed By: #### 5 0608 ####[facility] Hematocrit (Bld) [Volume fraction] 26.5 % Low 39.0-50.0 [facility] Comment on above: Order Comment: No: D o not add to previous draw Performed By: #### 5 0608 ####[address] Hemoglobin (Bld) [Mass/Vol] 8.4 g/dL Low 13.0-17.0 [facility] Comment on above: Order Comment: No: D o not add to previous draw Performed By: #### 5 0608 ####[facility] MCH (RBC) [Entitic mass] 28.9 pg Normal 27.0-33.0 [facility] Comment on above: Order Comment: No: D o not add to previous draw Performed By: #### 5 0608 ####[facility] [place] [address] MCHC (RBC) [Mass/Vol] 31.7 g/dL Low 32.0-35.0 [facility] Comment on above: Order Comment: No: D o not add to previous draw Performed By: #### 5 0608 ####[facility] [place] [address] MCV (RBC) [Entitic vol] 91.1 fL Normal 82.0-98.0 [facility] Comment on above: Order Comment: No: D o not add to previous draw Performed By: #### 5 0608 ####[facility] [place] [address], [facility] Nucleated RBC/100 WBC (Bld) [Ratio] 0 % Normal 0-0 [facility] Comment on above: Order Comment: No: D o not add to previous draw Performed By: #### 5 0608 ####[facility] [facility] [place] [address], [facility] PLAT CNT 338 10*3/uL Normal 150-400 [facility] Comment on above: Order Comment: No: D o not add to previous draw Performed By: #### 5 0608 ####[facility] [facility] [address], [facility] RBC (Bld) [#/Vol] 2.91 10*6/uL Low 4.20-5.70 [facility] Comment on above: Order Comment: No: D o not add to previous draw Performed By: #### 5 0608 ####[facility] [facility] [address], [facility] WBC (Bld) [#/Vol] 7.23 10*3/uL Normal 4.00-10.60 [facility] Comment on above: Order Comment: No: D o not add to previous draw Performed By: #### 5 0608 ####[facility] [facility] [address], [facility] CREATININE URINE RANDOMon Creatinine (U) [Mass/Vol] 39.0 mg/dL Normal [facility] Comment on above: Order Comment: No: D o not add to previous draw Result Comment: Ther e are no established reference values for random urine specimens Performed By: #### 2 5706, 71681 ####[facility] [facility] [place] [address], [facility] MAGNESIUM BLOODon 05-30-2021 Magnesium [Mass/Vol] 1.9 mg/dL Normal 1.9-2.7 [facility] Comment on above: Order Comment: No: D o not add to previous draw Performed By: #### 1 0070, 89551, 73255 ####[facility] [place] [address], [facility] POC GLUCOSE LABon 05-30-2021 Glucose [Mass/Vol] 155 mg/dL High 70-100 [facility] Comment on above: Performed By: #### 8 5499 ####[facility] [place] [address], [place] Glucose [Mass/Vol] 129 mg/dL High 70-100 [facility] Comment on above: Performed By: #### 8 5499 ####[facility] [place] [address], [place] Glucose [Mass/Vol] 147 mg/dL High 70-100 [facility] Comment on above: Performed By: #### 8 5499 ####[facility] [facility] [place] [address], [facility] PORTABLE CHEST 1 VIEWon 10-0 PORTABLE CHEST 1 VIEW Normal [facility] Comment on above: Order Comment: Evalu ate for Atelectasis T PROT UR Isi 05-30-2021 U TOTAL PROTEIN 88.8 mg/dL Normal [facility] Comment on above: Order Comment: No: D o not add to previous draw Result Comment: Ther e are no established reference values for random urine specimens Performed By: #### 2 5706, 68395 ####[facility] [facility] [address], [facility] URINE TRINH STAIN/EOSon EOSINOPHIL SMEAR NONE SEEN Normal NSN [facility] Comment on above: Order Comment: No: D o not add to previous draw [place] Normal [facility] Comment on above: Order Comment: No: D o not add to previous draw Result Comment: Test Performed by [facility] [address] [place] [id number] - Released 05/30/2021 20:40 US RENALon 05-30-2021 US RENAL Normal [facility] Comment on above: Order Comment: Other , [facility] BASIC METABOLIC PANELon 10-0 Calcium [Mass/Vol] 8.4 mg/dL Low 8.6-10.3 [facility] Comment on above: Order Comment: No: D o not add to previous draw Performed By: #### 4 1000, 95087, 42461 ####[facility] [place] [address], [facility] Chloride [Moles/Vol] 102 mmol/L Normal 98-107 [facility] Comment on above: Order Comment: No: D o not add to previous draw Performed By: #### 4 1000, 73750, 76500 ####[facility] [place] [address], [facility] CO2 [Moles/Vol] 25 mmol/L Normal 21-31 [facility] Comment on above: Order Comment: No: D o not add to previous draw Performed By: #### 4 1000, 20729, 99902 ####[facility] [place] [address], [facility] Creatinine [Mass/Vol] 2.12 mg/dL High 0.70-1.30 [facility] Comment on above: Order Comment: No: D o not add to previous draw Performed By: #### 4 1000, 53681, 61737 ####[facility] [place] [address], [place] eGFR- 37 ml/min/1.73sq m Abnormal >60 [facility] Comment on above: Order Comment: No: D o not add to previous draw Result Comment: Calc ulation may not be valid for patients over 70 years Performed By: #### 4 1000, 28501, 05454 ####[facility] eGFR- non- 30 ml/min/1.73sq m Abnormal >60 [facility] Comment on above: Order Comment: No: D o not add to previous draw Result Comment: Calc ulation may not be valid for patients over 70 years Performed By: #### 4 1000, 76821, 02590 ####[facility] [facility] [address], [facility] Glucose [Mass/Vol] 103 mg/dL High 70-100 [facility] Comment on above: Order Comment: No: D o not add to previous draw Performed By: #### 4 1000, 36264, 93088 ####[place] [address] [facility] [place] [address], [facility] Potassium [Moles/Vol] 4.6 mmol/L Normal 3.5-5.1 [facility] Comment on above: Order Comment: No: D o not add to previous draw Performed By: #### 4 1000, 55723, 07881 ####[place] [address] [facility] [address], [facility] Sodium [Moles/Vol] 133 mmol/L Low 136-145 [facility] Comment on above: Order Comment: No: D o not add to previous draw Performed By: #### 4 1000, 31991, 08306 ####[place] [address] [facility] [place] [address], [facility] Urea nitrogen [Mass/Vol] 33 mg/dL High 7-25 [facility] Comment on above: Order Comment: No: D o not add to previous draw Performed By: #### 4 1000, 74605, 27485 ####[place] [address] [facility] [place] [address], [facility] CBC COMPLETE BLOOD COUNTon Erythrocyte distribution width (RBC) [Ratio] 15.7 % High 11.5-15.0 [facility] Comment on above: Order Comment: No: D o not add to previous draw Performed By: #### 5 0608 ####[facility] Hematocrit (Bld) [Volume fraction] 26.4 % Low 39.0-50.0 [facility] Comment on above: Order Comment: No: D o not add to previous draw Performed By: #### 5 0608 ####[facility] Hemoglobin (Bld) [Mass/Vol] 8.4 g/dL Low 13.0-17.0 [facility] Comment on above: Order Comment: No: D o not add to previous draw Performed By: #### 5 0608 ####[address] MCH (RBC) [Entitic mass] 29.0 pg Normal 27.0-33.0 [facility] Comment on above: Order Comment: No: D o not add to previous draw Performed By: #### 5 0608 ####[place] [address] MCHC (RBC) [Mass/Vol] 31.8 g/dL Low 32.0-35.0 [facility] Comment on above: Order Comment: No: D o not add to previous draw Performed By: #### 5 0608 ####[facility] [place] [address] MCV (RBC) [Entitic vol] 91.0 fL Normal 82.0-98.0 [facility] Comment on above: Order Comment: No: D o not add to previous draw Performed By: #### 5 0608 ####[facility] [place] [address] Nucleated RBC/100 WBC (Bld) [Ratio] 0 % Normal 0-0 [facility] Comment on above: Order Comment: No: D o not add to previous draw Performed By: #### 5 0608 ####[facility] [facility] [place] [address], [facility] PLAT CNT 346 10*3/uL Normal 150-400 [facility] Comment on above: Order Comment: No: D o not add to previous draw Performed By: #### 5 0608 ####[facility] [facility] [place] [address], [facility] RBC (Bld) [#/Vol] 2.90 10*6/uL Low 4.20-5.70 [facility] Comment on above: Order Comment: No: D o not add to previous draw Performed By: #### 5 0608 ####[place] [address] [facility] [address], [facility] WBC (Bld) [#/Vol] 7.17 10*3/uL Normal 4.00-10.60 [facility] Comment on above: Order Comment: No: D o not add to previous draw Performed By: #### 5 0608 ####[facility] [facility].[address] MAGNESIUM BLOODon 05-29-2021 Magnesium [Mass/Vol] 1.9 mg/dL Normal 1.9-2.7 [facility] Comment on above: Order Comment: No: D o not add to previous draw Performed By: #### 4 999, 09548, 96606 ####[facility] [facility] [address], [facility] PHOSPHORUS BLOODon Phosphate [Mass/Vol] 4.4 mg/dL Normal 2.5-5.0 [facility] Comment on above: Order Comment: No: D o not add to previous draw Performed By: #### 4 999, 76705, 10211 ####[facility] [place] [address], [place] POC GLUCOSE LABon 05-29-2021 Glucose [Mass/Vol] 183 mg/dL High 70-100 [facility] Comment on above: Performed By: #### 8 5499 ####[facility] [place] [address], [place] Glucose [Mass/Vol] 124 mg/dL High 70-100 [facility] Comment on above: Performed By: #### 8 5499 ####[facility] [place] [address], [place] Glucose [Mass/Vol] 187 mg/dL High 70-100 [facility] Comment on above: Performed By: #### 8 5499 ####[facility] [place] [address], [place] Glucose [Mass/Vol] 189 mg/dL High 70-100 [facility] Comment on above: Performed By: #### 8 5499 ####[facility] [place] [address], [place] PORTABLE CHEST 1 VIEWon PORTABLE CHEST 1 VIEW Normal [facility] Comment on above: Order Comment: evalu ate for Atelectasis BASIC METABOLIC PANELon Calcium [Mass/Vol] 8.3 mg/dL Low 8.6-10.3 [facility] Comment on above: Order Comment: No: D o not add to previous draw Performed By: #### 2 5508, 36779, 20839, 94022 ####[facility] [place] [address], [place] Chloride [Moles/Vol] 99 mmol/L Normal 98-107 [facility] Comment on above: Order Comment: No: D o not add to previous draw Performed By: #### 2 5508, 80667, 82839, 15730 ####[facility] [place] [address], [facility] CO2 [Moles/Vol] 26 mmol/L Normal 21-31 [facility] Comment on above: Order Comment: No: D o not add to previous draw Performed By: #### 2 5508, 84591, 61298, 66271 ####[facility] [place] [address], [facility] Creatinine [Mass/Vol] 2.18 mg/dL High 0.70-1.30 [facility] Comment on above: Order Comment: No: D o not add to previous draw Performed By: #### 2 5508, 28027, 03626, 71259 ####[facility] [place] [address], [facility] eGFR- 36 ml/min/1.73sq m Abnormal >60 [facility] Comment on above: Order Comment: No: D o not add to previous draw Result Comment: Calc ulation may not be valid for patients over 70 years Performed By: #### 2 5508, 13434, 09227, 60346 ####[facility] [place] [address], [facility] eGFR- non- 29 ml/min/1.73sq m Abnormal >60 [facility] Comment on above: Order Comment: No: D o not add to previous draw Result Comment: Calc ulation may not be valid for patients over 70 years Performed By: #### 2 5508, 19928, 85353, 46227 ####[facility] [place] [address], [place] Glucose [Mass/Vol] 100 mg/dL Normal 70-100 [facility] Comment on above: Order Comment: No: D o not add to previous draw Performed By: #### 2 5508, 15571, 28627, 98247 ####[facility] [place] [address], [place] Potassium [Moles/Vol] 5.3 mmol/L High 3.5-5.1 [facility] Comment on above: Order Comment: No: D o not add to previous draw Performed By: #### 2 5508, 52297, 82480, 88983 ####[facility] [facility].[address] Sodium [Moles/Vol] 131 mmol/L Low 136-145 [facility] Comment on above: Order Comment: No: D o not add to previous draw Performed By: #### 2 5508, 50759, 63127, 67005 ####[facility] [facility].[address] Urea nitrogen [Mass/Vol] 33 mg/dL High 7-25 [facility] Comment on above: Order Comment: No: D o not add to previous draw Performed By: #### 2 5508, 78494, 79889, 39004 ####[facility] [facility] [address], [facility] CBC W/DIFFon 05-28-2021 ABS IMM GRANS 0.2 10*3/uL Normal 0.0-0.2 [facility] Comment on above: Performed By: #### 5 0103 ####[facility] [facility].[address] ABS NEUTROPHILS 5.6 10*3/uL Normal 1.6-7.6 [facility] Comment on above: Performed By: #### 5 0103 ####[facility] [facility] [address], [facility] Basophils (Bld) [#/Vol] 0.0 10*3/uL Normal 0.0-0.2 [facility] Comment on above: Performed By: #### 5 0103 ####[facility] [facility].[address] Basophils/100 WBC (Bld) 0.5 % Normal 0.0-1.0 [facility] Comment on above: Performed By: #### 5 0103 ####[facility] [facility] [address], [facility] Eosinophils (Bld) [#/Vol] 0.4 10*3/uL Normal 0.0-0.5 [facility] Comment on above: Performed By: #### 5 0103 ####[facility] [facility].[address] Eosinophils/100 WBC (Bld) 4.5 % Normal 0.0-6.0 [facility] Comment on above: Performed By: #### 5 0103 ####[facility] [facility].[address] Erythrocyte distribution width (RBC) [Ratio] 15.6 % High 11.5-15.0 [facility] Comment on above: Performed By: #### 5 0103 ####[facility] [facility].[address] Hematocrit (Bld) [Volume fraction] 27.7 % Low 39.0-50.0 [facility] Comment on above: Performed By: #### 5 0103 ####[facility] [facility].[address] Hemoglobin (Bld) [Mass/Vol] 8.6 g/dL Low 13.0-17.0 [facility] Comment on above: Performed By: #### 5 3 ####[facility] [facility].[address] IMMATURE GRANS 1.8 % High 0.0-1.0 [facility] Comment on above: Performed By: #### 5 3 ####[facility] [facility] [address], [facility] Lymphocytes (Bld) [#/Vol] 1.8 10*3/uL Normal 1.2-4.0 [facility] Comment on above: Performed By: #### 5 0103 ####[facility] [facility].[address] Lymphocytes/100 WBC (Bld) 20.4 % Normal 20.0-45.0 [facility] Comment on above: Performed By: #### 5 0103 ####[facility] [facility].[address] MCH (RBC) [Entitic mass] 28.6 pg Normal 27.0-33.0 [facility] Comment on above: Performed By: #### 5 3 ####[facility] [facility].[address] MCHC (RBC) [Mass/Vol] 31.0 g/dL Low 32.0-35.0 [facility] Comment on above: Performed By: #### 5 0103 ####[facility] [facility].[address] MCV (RBC) [Entitic vol] 92.0 fL Normal 82.0-98.0 [facility] Comment on above: Performed By: #### 5 3 ####[facility] [facility].[address] Monocytes (Bld) [#/Vol] 0.9 10*3/uL Normal 0.1-1.0 [facility] Comment on above: Performed By: #### 5 3 ####[facility] MONOS 9.9 % Normal 5.0-12.0 [facility] Comment on above: Performed By: #### 5 3 ####[facility] [facility].[address] Neutrophils/100 WBC (Bld) 62.9 % Normal 40.0-72.0 [facility] Comment on above: Performed By: #### 5 0103 ####[facility] [facility].[address] Nucleated RBC/100 WBC (Bld) [Ratio] 0 % Normal 0-0 [facility] Comment on above: Performed By: #### 5 0103 ####[facility] PLAT CNT 387 10*3/uL Normal 150-400 [facility] Comment on above: Performed By: #### 5 0103 ####[facility] RBC (Bld) [#/Vol] 3.01 10*6/uL Low 4.20-5.70 [facility] Comment on above: Performed By: #### 5 0103 ####[facility] WBC (Bld) [#/Vol] 8.82 10*3/uL Normal 4.00-10.60 [facility] Comment on above: Performed By: #### 5 0103 ####[facility] CPKon 05-28-2021 CK [Catalytic activity/Vol] 19 U/L Low 30-223 [facility] Comment on above: Performed By: #### 2 5508, 84184, 22593, 91868 ####[facility] MAGNESIUM BLOODon 05-28-2021 Magnesium [Mass/Vol] 1.9 mg/dL Normal 1.9-2.7 [facility] Comment on above: Order Comment: No: D o not add to previous draw Performed By: #### 2 5508, 96057, 65882, 11819 ####[facility] [place] [address], [facility] Operative Reporton 1 Operative Report Normal [facility] PHOSPHORUS BLOODon 1 Phosphate [Mass/Vol] 4.5 mg/dL Normal 2.5-5.0 [facility] [facility] Comment on above: Performed By: #### 2 5508, 32927, 63222, 18425 ####[facility] [place] [address], [place] POC GLUCOSE LABon 05-28-2021 Glucose [Mass/Vol] 120 mg/dL High 70-100 [facility] Comment on above: Performed By: #### 8 5499 ####[facility] [place] [address], [place] Glucose [Mass/Vol] 130 mg/dL High 70-100 [facility] Comment on above: Performed By: #### 8 5499 ####[facility] [place] [address], [place] Glucose [Mass/Vol] 117 mg/dL High 70-100 [facility] Comment on above: Performed By: #### 8 5499 ####[facility] [place] [address], [place] Glucose [Mass/Vol] 175 mg/dL High 70-100 [facility] Comment on above: Performed By: #### 8 5499 ####[facility] [place] [address], [place] Glucose [Mass/Vol] 107 mg/dL High 70-100 [facility] Comment on above: Performed By: #### 8 5499 ####[facility] [place] [address], [place] BASIC METABOLIC PANELon 10- Calcium [Mass/Vol] 8.4 mg/dL Low 8.6-10.3 [facility] Comment on above: Order Comment: No: D o not add to previous draw Performed By: #### 0 0071, 23488, 82328 ####[facility] [place] [address], [facility] Chloride [Moles/Vol] 99 mmol/L Normal 98-107 The [facility] Comment on above: Order Comment: No: D o not add to previous draw Performed By: #### 0 0071, , 55351 ####[facility] [place] [address], [facility] CO2 [Moles/Vol] 29 mmol/L Normal 21-31 [facility] Comment on above: Order Comment: No: D o not add to previous draw Performed By: #### 0 0071, , 76991 ####[facility] [place] [address], [facility] Creatinine [Mass/Vol] 1.78 mg/dL High 0.70-1.30 [facility] Comment on above: Order Comment: No: D o not add to previous draw Performed By: #### 0 0071, , 35286 ####[facility] eGFR- 45 ml/min/1.73sq m Abnormal >60 The [facility] Comment on above: Order Comment: No: D o not add to previous draw Result Comment: Calc ulation may not be valid for patients over 70 years Performed By: #### 0 0071, , 10729 ####[facility] eGFR- non- 37 ml/min/1.73sq m Abnormal >60 [facility] Comment on above: Order Comment: No: D o not add to previous draw Result Comment: Calc ulation may not be valid for patients over 70 years Performed By: #### 0 0071, 26669, 97532 ####[facility] [place] [address], [facility] Glucose [Mass/Vol] 96 mg/dL Normal 70-100 [facility] Comment on above: Order Comment: No: D o not add to previous draw Performed By: #### 0 0071, , 62809 ####[facility] [place] [address], [facility] Potassium [Moles/Vol] 4.7 mmol/L Normal 3.5-5.1 [facility] Comment on above: Order Comment: No: D o not add to previous draw Performed By: #### 0 0071, , 50049 ####[facility] [id number], [facility] Sodium [Moles/Vol] 133 mmol/L Low 136-145 [facility] Comment on above: Order Comment: No: D o not add to previous draw Performed By: #### 0 0071, , 35062 ####[facility] [facility] [place] [address], [facility] Urea nitrogen [Mass/Vol] 33 mg/dL High 7-25 [facility] Comment on above: Order Comment: No: D o not add to previous draw Performed By: #### 0 0071, , 42566 ####[facility] [place] [address], [place] C REACTIVE PROTEINon 021 CRP [Mass/Vol] 47.2 mg/L High 0.0-7.0 The [facility] Comment on above: Order Comment: Yes: Add to Previous draw if able Performed By: #### 6 1405 ####[facility] [place] [address], [facility] CBC COMPLETE BLOOD COUNTon 1 Erythrocyte distribution width (RBC) [Ratio] 15.5 % High 11.5-15.0 [facility] Comment on above: Order Comment: No: D o not add to previous drawNurse draw Performed By: #### 5 6506, 35052 ####[facility] Hematocrit (Bld) [Volume fraction] 24.7 % Low 39.0-50.0 [facility] Comment on above: Order Comment: No: D o not add to previous drawNurse draw Performed By: #### 5 6506, 88887 ####[facility] Hemoglobin (Bld) [Mass/Vol] 7.7 g/dL Low 13.0-17.0 [facility] Comment on above: Order Comment: No: D o not add to previous drawNurse draw Performed By: #### 5 8236, 84768 ####[facility] MCH (RBC) [Entitic mass] 28.5 pg Normal 27.0-33.0 [facility] Comment on above: Order Comment: No: D o not add to previous drawNurse draw Performed By: #### 5 6226, 99787 ####[facility] MCHC (RBC) [Mass/Vol] 31.2 g/dL Low 32.0-35.0 [facility] Comment on above: Order Comment: No: D o not add to previous drawNurse draw Performed By: #### 5 8026, 41638 ####[facility] [facility] [address], [facility] MCV (RBC) [Entitic vol] 91.5 fL Normal 82.0-98.0 [facility] Comment on above: Order Comment: No: D o not add to previous drawNurse draw Performed By: #### 5 6506, 09045 ####[facility] [facility] [place] [address], [facility] Nucleated RBC/100 WBC (Bld) [Ratio] 0 % Normal 0-0 [facility] Comment on above: Order Comment: No: D o not add to previous drawNurse draw Performed By: #### 5 6506, 39749 ####[facility] [facility] [place] [address], [facility] PLAT CNT 332 10*3/uL Normal 150-400 The [facility] Comment on above: Order Comment: No: D o not add to previous drawNurse draw Performed By: #### 5 6506, 31080 ####[facility] [facility] [address], [facility] RBC (Bld) [#/Vol] 2.70 10*6/uL Low 4.20-5.70 The [facility] Comment on above: Order Comment: No: D o not add to previous drawNurse draw Performed By: #### 5 6506, 38027 ####[place] [address] [facility] [place] [address], [facility] WBC (Bld) [#/Vol] 7.87 10*3/uL Normal 4.00-10.60 [facility] Comment on above: Order Comment: No: D o not add to previous drawNurse draw Performed By: #### 5 6506, 67757 ####[facility] [facility] [address], [facility] MAGNESIUM BLOODon 05-27-2021 Magnesium [Mass/Vol] 2.1 mg/dL Normal 1.9-2.7 [facility] Comment on above: Order Comment: No: D o not add to previous draw Performed By: #### 0 0071, 44386, 92819 ####[facility] [facility] [address], [facility] POC GLUCOSE LABon 05-27-2021 Glucose [Mass/Vol] 134 mg/dL High 70-100 [facility] Comment on above: Performed By: #### 8 5499 ####[facility] [facility] [address], [facility] Glucose [Mass/Vol] 109 mg/dL High 70-100 [facility] Comment on above: Performed By: #### 8 5499 ####[facility] [facility] [address], [facility] Glucose [Mass/Vol] 151 mg/dL High 70-100 [facility] Comment on above: Performed By: #### 8 5499 ####[facility] [facility] [address], [facility] Glucose [Mass/Vol] 114 mg/dL High 70-100 [facility] Comment on above: Performed By: #### 8 5499 ####[facility] [facility].[address] PORTABLE CHEST 1 VIEWon PORTABLE CHEST 1 VIEW Normal [facility] Comment on above: Order Comment: evalu ate for Atelectasis RBC'S 1 UNITon 05-27-2021 CROSSMATCH INTERP 1 COMP Normal The [facility] Comment on above: Performed By: #### 8 6001 ####[facility] [facility].[address] PRODUCT CODE 1 E0336 Normal [facility] Comment on above: Performed By: #### 8 6001 ####[facility] [facility].[address] PRODUCT STATUS 1 PT Normal The [facility] Comment on above: Result Comment: Resu lt changed by IF on 05/27/2021 11:45. The previous value was XM.Result changed by IF on 05/28/2021 00:30. The previous value was IS. Performed By: #### 8 6001 ####[facility] [place] [address], [facility] UNIT ABO 1 O Normal [facility] Comment on above: Performed By: #### 8 6001 ####[facility] UNIT ID 1 [id number] Normal [facility] Comment on above: Performed By: #### 8 6001 ####[facility] [facility].[address] UNIT RH 1 Negative Normal [facility] Comment on above: Performed By: #### 8 6001 ####[facility] SEDIMENTATION RATEon 021 SED RATE 48 mm/hr High 0-10 [facility] Comment on above: Performed By: #### 5 6506, 20808 ####[facility] [facility].[address] VANCOMYCIN RANDOMon 05-27-20 21 VANCOMYCIN RAND 12.2 mcg/mL Normal [facility] Comment on above: Performed By: #### 0 0071, 60082, 81946 ####[facility] BASIC METABOLIC PANELon 10-0 Calcium [Mass/Vol] 8.2 mg/dL Low 8.6-10.3 [facility] Comment on above: Order Comment: No: D o not add to previous draw Performed By: #### 1 0070, 34257 ####[facility] Chloride [Moles/Vol] 98 mmol/L Normal 98-107 [facility] Comment on above: Order Comment: No: D o not add to previous draw Performed By: #### 1 69, 33290 ####[facility] [place] [address], [facility] CO2 [Moles/Vol] 30 mmol/L Normal 21-31 [facility] Comment on above: Order Comment: No: D o not add to previous draw Performed By: #### 1 69, 14925 ####[facility] [facility] [place] [address], [facility] Creatinine [Mass/Vol] 1.78 mg/dL High 0.70-1.30 [facility] Comment on above: Order Comment: No: D o not add to previous draw Performed By: #### 1 69, 03931 ####[facility] [facility] [address], [facility] eGFR- 45 ml/min/1.73sq m Abnormal >60 [facility] Comment on above: Order Comment: No: D o not add to previous draw Result Comment: Calc ulation may not be valid for patients over 70 years Performed By: #### 1 69, 47036 ####[facility] [facility] [address], [facility] eGFR- non- 37 ml/min/1.73sq m Abnormal >60 [facility] Comment on above: Order Comment: No: D o not add to previous draw Result Comment: Calc ulation may not be valid for patients over 70 years Performed By: #### 1 69, 83055 ####[facility] [place] [address], [facility] Glucose [Mass/Vol] 97 mg/dL Normal 70-100 [facility] Comment on above: Order Comment: No: D o not add to previous draw Performed By: #### 1 69, 40178 ####[facility] Potassium [Moles/Vol] 4.8 mmol/L Normal 3.5-5.1 [facility] Comment on above: Order Comment: No: D o not add to previous draw Performed By: #### 1 69, 24090 ####[facility] Sodium [Moles/Vol] 131 mmol/L Low 136-145 [facility] Comment on above: Order Comment: No: D o not add to previous draw Performed By: #### 1 69, 82042 ####[facility] Urea nitrogen [Mass/Vol] 35 mg/dL High 7-25 [facility] Comment on above: Order Comment: No: D o not add to previous draw Performed By: #### 1 69, 44442 ####[facility] [facility].[address] CBC COMPLETE BLOOD COUNTon 1 - Erythrocyte distribution width (RBC) [Ratio] 15.4 % High 11.5-15.0 [facility] Comment on above: Order Comment: No: D o not add to previous drawNurse draw Performed By: #### 5 0608 ####[facility] [facility].[address] Hematocrit (Bld) [Volume fraction] 24.3 % Low 39.0-50.0 [facility] Comment on above: Order Comment: No: D o not add to previous drawNurse draw Performed By: #### 5 0608 ####[facility] [facility].[address] Hemoglobin (Bld) [Mass/Vol] 7.9 g/dL Low 13.0-17.0 [facility] Comment on above: Order Comment: No: D o not add to previous drawNurse draw Performed By: #### 5 0608 ####[facility] MCH (RBC) [Entitic mass] 28.6 pg Normal 27.0-33.0 [facility] Comment on above: Order Comment: No: D o not add to previous drawNurse draw Performed By: #### 5 0608 ####[facility] MCHC (RBC) [Mass/Vol] 32.5 g/dL Normal 32.0-35.0 [facility] Comment on above: Order Comment: No: D o not add to previous drawNurse draw Performed By: #### 5 0608 ####[address] MCV (RBC) [Entitic vol] 88.0 fL Normal 82.0-98.0 [facility] Comment on above: Order Comment: No: D o not add to previous drawNurse draw Performed By: #### 5 0608 ####[address] Nucleated RBC/100 WBC (Bld) [Ratio] 0 % Normal 0-0 [facility] Comment on above: Order Comment: No: D o not add to previous drawNurse draw Performed By: #### 5 0608 ####[place] [address], [facility] PLAT CNT 320 10*3/uL Normal 150-400 [facility] Comment on above: Order Comment: No: D o not add to previous drawNurse draw Performed By: #### 5 0608 ####[place] [address], [facility] RBC (Bld) [#/Vol] 2.76 10*6/uL Low 4.20-5.70 [facility] Comment on above: Order Comment: No: D o not add to previous drawNurse draw Performed By: #### 5 0608 ####[facility] [place] [address], [facility] WBC (Bld) [#/Vol] 7.52 10*3/uL Normal 4.00-10.60 [facility] Comment on above: Order Comment: No: D o not add to previous drawNurse draw Performed By: #### 5 0608 ####[facility] [place] [address], [facility] MAGNESIUM BLOODon 05-26-2021 Magnesium [Mass/Vol] 2.1 mg/dL Normal 1.9-2.7 [facility] Comment on above: Order Comment: No: D o not add to previous draw Performed By: #### 1 0070, 35615 ####[facility] [facility] [address], [facility] POC GLUCOSE LABon 05-26-2021 Glucose [Mass/Vol] 138 mg/dL High 70-100 [facility] Comment on above: Performed By: #### 8 5499 ####[facility] [facility] [address], [facility] Glucose [Mass/Vol] 119 mg/dL High 70-100 [facility] Comment on above: Performed By: #### 8 5499 ####[facility] [facility] [address], [facility] Glucose [Mass/Vol] 118 mg/dL High 70-100 [facility] Comment on above: Performed By: #### 8 5499 ####[facility] [facility] [address], [facility] PORTABLE CHEST 1 VIEWon PORTABLE CHEST 1 VIEW Normal [facility] Comment on above: Order Comment: evalu ate for Atelectasis BASIC METABOLIC PANELon Calcium [Mass/Vol] 8.1 mg/dL Low 8.6-10.3 [facility] Comment on above: Order Comment: No: D o not add to previous draw Performed By: #### 3 0953, 53620, 82000 ####[facility] [place] [address], [facility] Chloride [Moles/Vol] 95 mmol/L Low 98-107 [facility] Comment on above: Order Comment: No: D o not add to previous draw Performed By: #### 3 0953, 02064, 03028 ####[facility] [place] [address], [facility] CO2 [Moles/Vol] 27 mmol/L Normal 21-31 [facility] Comment on above: Order Comment: No: D o not add to previous draw Performed By: #### 3 0953, 13572, 26213 ####[facility] [facility] [place] [address], [facility] Creatinine [Mass/Vol] 2.13 mg/dL High 0.70-1.30 [facility] Comment on above: Order Comment: No: D o not add to previous draw Performed By: #### 3 0953, 01837, 32055 ####[facility] [facility].[address] eGFR- 37 ml/min/1.73sq m Abnormal >60 [facility] Comment on above: Order Comment: No: D o not add to previous draw Result Comment: Calc ulation may not be valid for patients over 70 years Performed By: #### 3 0953, 62390, 31137 ####[facility] [facility] [address], [facility] eGFR- non- 30 ml/min/1.73sq m Abnormal >60 [facility] Comment on above: Order Comment: No: D o not add to previous draw Result Comment: Calc ulation may not be valid for patients over 70 years Performed By: #### 3 0953, 66414, 00568 ####[facility] [id number], [facility] Glucose [Mass/Vol] 122 mg/dL High 70-100 [facility] Comment on above: Order Comment: No: D o not add to previous draw Performed By: #### 3 0953, 64315, 52110 ####[facility] [address], [facility] Potassium [Moles/Vol] 4.8 mmol/L Normal 3.5-5.1 [facility] Comment on above: Order Comment: No: D o not add to previous draw Performed By: #### 3 0953, 99658, 64086 ####[facility] [address], [facility] Sodium [Moles/Vol] 128 mmol/L Low 136-145 [facility] Comment on above: Order Comment: No: D o not add to previous draw Performed By: #### 3 53, 81909, 57686 ####[facility] [facility] [address], [facility] Urea nitrogen [Mass/Vol] 35 mg/dL High 7-25 [facility] Comment on above: Order Comment: No: D o not add to previous draw Performed By: #### 3 0953, 63468, 73147 ####[facility] [facility].[address] CBC COMPLETE BLOOD COUNTon 1 - Erythrocyte distribution width (RBC) [Ratio] 15.8 % High 11.5-15.0 [facility] Comment on above: Order Comment: No: D o not add to previous draw Performed By: #### 5 0608 ####[facility] [place] [address], [facility] Hematocrit (Bld) [Volume fraction] 22.3 % Low 39.0-50.0 [facility] Comment on above: Order Comment: No: D o not add to previous draw Performed By: #### 5 0608 ####[facility] [facility].[address] Hemoglobin (Bld) [Mass/Vol] 7.3 g/dL Low 13.0-17.0 [facility] Comment on above: Order Comment: No: D o not add to previous draw Performed By: #### 5 0608 ####[facility] MCH (RBC) [Entitic mass] 28.7 pg Normal 27.0-33.0 [facility] Comment on above: Order Comment: No: D o not add to previous draw Performed By: #### 5 0608 ####[facility] MCHC (RBC) [Mass/Vol] 32.7 g/dL Normal 32.0-35.0 [facility] Comment on above: Order Comment: No: D o not add to previous draw Performed By: #### 5 0608 ####[address] MCV (RBC) [Entitic vol] 87.8 fL Normal 82.0-98.0 [facility] Comment on above: Order Comment: No: D o not add to previous draw Performed By: #### 5 0608 ####[facility] [place] [address] Nucleated RBC/100 WBC (Bld) [Ratio] 0 % Normal 0-0 [facility] Comment on above: Order Comment: No: D o not add to previous draw Performed By: #### 5 0608 ####[facility] [place] [address], [facility] PLAT CNT 292 10*3/uL Normal 150-400 [facility] Comment on above: Order Comment: No: D o not add to previous draw Performed By: #### 5 0608 ####[facility] [place] [address], [facility] RBC (Bld) [#/Vol] 2.54 10*6/uL Low 4.20-5.70 [facility] Comment on above: Order Comment: No: D o not add to previous draw Performed By: #### 5 0608 ####[facility] [facility] [address], [facility] WBC (Bld) [#/Vol] 8.90 10*3/uL Normal 4.00-10.60 [facility] Comment on above: Order Comment: No: D o not add to previous draw Performed By: #### 5 0608 ####[facility] [facility].[address] HEMATOCRITon 05-25-2021 Hematocrit (Bld) [Volume fraction] 25.1 % Low 39.0-50.0 [facility] Comment on above: Order Comment: No: D o not add to previous draw Performed By: #### 9 2088, 23087 ####[facility] [facility].[address] HEMOGLOBINon 05-25-2021 Hemoglobin (Bld) [Mass/Vol] 8.4 g/dL Low 13.0-17.0 [facility] Comment on above: Order Comment: No: D o not add to previous draw Performed By: #### 9 2088, 37027 ####[facility] [facility] [address], [facility] MAGNESIUM BLOODon 05-25-2021 Magnesium [Mass/Vol] 2.0 mg/dL Normal 1.9-2.7 [facility] Comment on above: Order Comment: No: D o not add to previous draw Performed By: #### 3 0953, 12732, 59015 ####[facility] [facility] [place] [address], [facility] POC GLUCOSE LABon 05-25-2021 Glucose [Mass/Vol] 136 mg/dL High 70-100 The [facility] [facility] Comment on above: Performed By: #### 8 5499 ####[facility] [facility] [address], [place] Glucose [Mass/Vol] 115 mg/dL High 70-100 [facility] Comment on above: Performed By: #### 8 5499 ####[facility] [facility] [address], [place] Glucose [Mass/Vol] 72 mg/dL Normal 70-100 [facility] Comment on above: Performed By: #### 8 5499 ####[facility] [facility] [address], [place] Glucose [Mass/Vol] 154 mg/dL High 70-100 [facility] Comment on above: Performed By: #### 8 5499 ####[facility] [facility] [place] [address], [facility] PORTABLE CHEST 1 VIEWon PORTABLE CHEST 1 VIEW Normal [facility] Comment on above: Order Comment: Evalu ate for Effusion RBC'S 2 UNITSon 05-25-2021 CROSSMATCH INTERP 1 COMP Normal The [facility] Comment on above: Performed By: #### 8 6002 ####[facility] [facility] [place] [address], [facility] CROSSMATCH INTERP 2 COMP Normal [facility] Comment on above: Performed By: #### 8 6002 ####[facility] [facility] [place] [address], [facility] PRODUCT CODE 1 E0686 Normal The [facility] Comment on above: Performed By: #### 8 6002 ####[facility] [place] [address], [facility] PRODUCT CODE 2 E0336 Normal [facility] Comment on above: Performed By: #### 8 6002 ####[facility] [place] [address], [facility] PRODUCT STATUS 1 PT Normal [facility] Comment on above: Result Comment: Resu lt changed by IF on 05/25/2021 13:50. The previous value was XM.Result changed by IF on 05/26/2021 00:30. The previous value was IS. Performed By: #### 8 6002 ####[facility] [facility] [place] [address], [facility] PRODUCT STATUS 2 PT Normal [facility] Comment on above: Result Comment: Resu lt changed by IF on 05/25/2021 09:50. The previous value was XM.Result changed by IF on 05/26/2021 00:30. The previous value was IS. Performed By: #### 8 6002 ####[facility] [facility] [place] [address], [facility] UNIT ABO 1 O Normal [facility] Comment on above: Performed By: #### 8 6002 ####[facility] [facility] [place] [address], [facility] UNIT ABO 2 O Normal [facility] Comment on above: Performed By: #### 8 6002 ####[facility] [facility] [place] [address], [facility] UNIT ID 1 [id number] Normal [facility] Comment on above: Performed By: #### 8 6002 ####[facility] [place] [address], [facility] UNIT ID 2 [id number] Normal [facility] Comment on above: Performed By: #### 8 6002 ####[facility] [place] [address], [place] UNIT RH 1 Positive Normal [facility] Comment on above: Performed By: #### 8 6002 ####[facility] [place] [address], [place] UNIT RH 2 Positive Normal [facility] Comment on above: Performed By: #### 8 6002 ####[facility] [place] [address], [place] VANCOMYCIN TIMEDon VANCOMYCIN TIMED 24.3 mcg/mL Normal [facility] Comment on above: Performed By: #### 3 0953, 03106, 52849 ####[facility] [place] [address], [facility] BASIC METABOLIC PANELon 10-0 Calcium [Mass/Vol] 7.8 mg/dL Low 8.6-10.3 [facility] Comment on above: Order Comment: No: D o not add to previous draw Performed By: #### 0 0071, 62746, 99825, 58924 ####[facility] [place] [address], [place] Chloride [Moles/Vol] 97 mmol/L Low 98-107 [facility] Comment on above: Order Comment: No: D o not add to previous draw Performed By: #### 0 0071, 39816, 99135, 51768 ####[facility] [place] [address], [place] CO2 [Moles/Vol] 30 mmol/L Normal 21-31 [facility] Comment on above: Order Comment: No: D o not add to previous draw Performed By: #### 0 0071, 58713, 62021, 58723 ####[facility] [place] [address], [place] Creatinine [Mass/Vol] 1.70 mg/dL High 0.70-1.30 [facility] Comment on above: Order Comment: No: D o not add to previous draw Performed By: #### 0 0071, 15753, 91683, 84778 ####[facility] [place] [address], [facility] eGFR- 48 ml/min/1.73sq m Abnormal >60 The [facility] Comment on above: Order Comment: No: D o not add to previous draw Result Comment: Calc ulation may not be valid for patients over 70 years Performed By: #### 0 0071, 86422, 41102, 61527 ####[facility] eGFR- non- 39 ml/min/1.73sq m Abnormal >60 [facility] Comment on above: Order Comment: No: D o not add to previous draw Result Comment: Calc ulation may not be valid for patients over 70 years Performed By: #### 0 0071, 67368, 96949, 89493 ####[facility] [place] [address], [facility] Glucose [Mass/Vol] 132 mg/dL High 70-100 [facility] Comment on above: Order Comment: No: D o not add to previous draw Performed By: #### 0 0071, 31366, 87839, 42872 ####[facility] [place] [address], [facility] Potassium [Moles/Vol] 5.2 mmol/L High 3.5-5.1 [facility] Comment on above: Order Comment: No: D o not add to previous draw Performed By: #### 0 0071, 99461, 24809, 28363 ####[facility] [id number], [place] Sodium [Moles/Vol] 131 mmol/L Low 136-145 [facility] Comment on above: Order Comment: No: D o not add to previous draw Performed By: #### 0 0071, 53306, 27795, 47479 ####[facility] [facility] Urea nitrogen [Mass/Vol] 27 mg/dL High 7-25 [facility] Comment on above: Order Comment: No: D o not add to previous draw Performed By: #### 0 0071, 21085, 92429, 16079 ####[facility] [facility] CBC COMPLETE BLOOD COUNTon Erythrocyte distribution width (RBC) [Ratio] 14.5 % Normal 11.5-15.0 [facility] Comment on above: Order Comment: No: D o not add to previous draw Performed By: #### 5 0608 ####[facility] [facility] Hematocrit (Bld) [Volume fraction] 23.1 % Low 39.0-50.0 [facility] Comment on above: Order Comment: No: D o not add to previous draw Performed By: #### 5 0608 ####[facility] [facility].[address] Hemoglobin (Bld) [Mass/Vol] 7.4 g/dL Low 13.0-17.0 [facility] Comment on above: Order Comment: No: D o not add to previous draw Performed By: #### 5 0608 ####[facility] [facility] [address], [facility] MCH (RBC) [Entitic mass] 28.9 pg Normal 27.0-33.0 [facility] Comment on above: Order Comment: No: D o not add to previous draw Performed By: #### 5 0608 ####[facility] MCHC (RBC) [Mass/Vol] 32.0 g/dL Normal 32.0-35.0 [facility] Comment on above: Order Comment: No: D o not add to previous draw Performed By: #### 5 0608 ####[facility] [facility] [address], [facility] MCV (RBC) [Entitic vol] 90.2 fL Normal 82.0-98.0 [facility] Comment on above: Order Comment: No: D o not add to previous draw Performed By: #### 5 0608 ####[address] Nucleated RBC/100 WBC (Bld) [Ratio] 0 % Normal 0-0 [facility] Comment on above: Order Comment: No: D o not add to previous draw Performed By: #### 5 0608 ####[facility] [place] [address], [facility] PLAT CNT 312 10*3/uL Normal 150-400 [facility] Comment on above: Order Comment: No: D o not add to previous draw Performed By: #### 5 0608 ####[address] [place] [address], [facility] RBC (Bld) [#/Vol] 2.56 10*6/uL Low 4.20-5.70 [facility] Comment on above: Order Comment: No: D o not add to previous draw Performed By: #### 5 0608 ####[facility] [facility] [address], [facility] WBC (Bld) [#/Vol] 10.23 10*3/uL Normal 4.00-10.60 [facility] Comment on above: Order Comment: No: D o not add to previous draw Performed By: #### 5 0608 ####[address] [place] [address], [facility] MAGNESIUM BLOODon 05-24-2021 Magnesium [Mass/Vol] 1.8 mg/dL Low 1.9-2.7 [facility] Comment on above: Order Comment: No: D o not add to previous draw Performed By: #### 0 0071, 23113, 48173, 89435 ####[facility] [place] [address], [facility] PHOSPHORUS BLOODon Phosphate [Mass/Vol] 5.0 mg/dL Normal 2.5-5.0 [facility] Comment on above: Order Comment: No: D o not add to previous draw Performed By: #### 0 0071, 69314, 18867, 66762 ####[facility] [facility] [address], [facility] POC GLUCOSE LABon 05-24-2021 Glucose [Mass/Vol] 156 mg/dL High 70-100 [facility] Comment on above: Performed By: #### 8 5499 ####[facility] [facility] [place] [address], [place] Glucose [Mass/Vol] 129 mg/dL High 70-100 [facility] Comment on above: Performed By: #### 8 5499 ####[facility] [facility] [address], [place] Glucose [Mass/Vol] 188 mg/dL High 70-100 [facility] Comment on above: Performed By: #### 8 5499 ####[facility] [facility] [place] [address], [place] Glucose [Mass/Vol] 141 mg/dL High 70-100 [facility] Comment on above: Performed By: #### 8 5499 ####[facility] [place] [address], [place] RBC'S 1 UNITon 05-24-2021 CROSSMATCH INTERP 1 COMP Normal [facility] Comment on above: Performed By: #### 8 6001 ####[facility] PRODUCT CODE 1 E0332 Normal [facility] Comment on above: Performed By: #### 8 6001 ####[facility] PRODUCT STATUS 1 PT Normal [facility] Comment on above: Result Comment: Resu lt changed by IF on 05/24/2021 11:33. The previous value was XM.Result changed by IF on 05/25/2021 00:30. The previous value was IS. Performed By: #### 8 6001 ####[facility] UNIT ABO 1 O Normal [facility] Comment on above: Performed By: #### 8 6001 ####[facility] UNIT ID 1 [id number] Normal [facility] Comment on above: Performed By: #### 8 6001 ####[facility] [facility] [address], [facility] UNIT RH 1 Positive Normal [facility] Comment on above: Performed By: #### 8 6001 ####[facility] [place] [address], [facility] TYPE AND SCREENon 05-24-2021 ABO INTERPRETATION O Normal [facility] Comment on above: Performed By: #### 6 2586 ####[facility] [place] [address], [facility] RH INTERPRETATION Positive Normal [facility] Comment on above: Performed By: #### 6 2586 ####[facility] [place] [address], [facility] VANCOMYCIN TIMEDon VANCOMYCIN TIMED 42.1 mcg/mL Normal [facility] Comment on above: Performed By: #### 0 0071, 00363, 50535, 84883 ####[facility] BASIC METABOLIC PANELon 09-3 Calcium [Mass/Vol] 8.7 mg/dL Normal 8.6-10.3 [facility] Comment on above: Order Comment: No: D o not add to previous draw Performed By: #### 4 1000, 68343, 08591 ####[facility] [place] [address], [facility] Chloride [Moles/Vol] 97 mmol/L Low 98-107 [facility] Comment on above: Order Comment: No: D o not add to previous draw Performed By: #### 4 1000, 80170, 62568 ####[facility] [place] [address], [facility] CO2 [Moles/Vol] 32 mmol/L High 21-31 [facility] Comment on above: Order Comment: No: D o not add to previous draw Performed By: #### 4 1000, 35713, 35500 ####[facility] [place] [address], [facility] Creatinine [Mass/Vol] 1.31 mg/dL High 0.70-1.30 [facility] Comment on above: Order Comment: No: D o not add to previous draw Performed By: #### 4 1000, 54172, 65007 ####[facility] eGFR- non- 53 ml/min/1.73sq m Abnormal >60 [facility] Comment on above: Order Comment: No: D o not add to previous draw Result Comment: Calc ulation may not be valid for patients over 70 years Performed By: #### 4 1000, 46716, 85899 ####[facility] [facility] [address], [facility] GFR/1.73 sq M.predicted among blacks MDRD (S/P/Bld) [Vol rate/Area] mL/min/{1.73_m2} Normal >60 [facility] Comment on above: Order Comment: No: D o not add to previous draw Result Comment: Calc ulation may not be valid for patients over 70 years Performed By: #### 4 1000, 86174, 37508 ####[facility] [facility] [address], [facility] Glucose [Mass/Vol] 105 mg/dL High 70-100 [facility] Comment on above: Order Comment: No: D o not add to previous draw Performed By: #### 4 1000, 90481, 16056 ####[facility] [facility] [address], [facility] Potassium [Moles/Vol] 4.0 mmol/L Normal 3.5-5.1 [facility] Comment on above: Order Comment: No: D o not add to previous draw Performed By: #### 4 1000, 35631, 87153 ####[facility] [facility] [address], [facility] Sodium [Moles/Vol] 133 mmol/L Low 136-145 [facility] Comment on above: Order Comment: No: D o not add to previous draw Performed By: #### 4 1000, 35701, 88873 ####[facility] [facility] [address], [facility] Urea nitrogen [Mass/Vol] 24 mg/dL Normal 7-25 [facility] Comment on above: Order Comment: No: D o not add to previous draw Performed By: #### 4 1000, 72907, 44748 ####[facility] CBC COMPLETE BLOOD COUNTon 0 05-23-2021 Erythrocyte distribution width (RBC) [Ratio] 14.3 % Normal 11.5-15.0 [facility] Comment on above: Order Comment: No: D o not add to previous draw Performed By: #### 5 0608 ####[facility] [facility].[address] Hematocrit (Bld) [Volume fraction] 29.4 % Low 39.0-50.0 [facility] Comment on above: Order Comment: No: D o not add to previous draw Performed By: #### 5 0608 ####[address] Hemoglobin (Bld) [Mass/Vol] 9.4 g/dL Low 13.0-17.0 [facility] Comment on above: Order Comment: No: D o not add to previous draw Performed By: #### 5 0608 ####[place] [address] [facility].[address] MCH (RBC) [Entitic mass] 28.5 pg Normal 27.0-33.0 [facility] Comment on above: Order Comment: No: D o not add to previous draw Performed By: #### 5 0608 ####[facility] [facility].[address] MCHC (RBC) [Mass/Vol] 32.0 g/dL Normal 32.0-35.0 [facility] Comment on above: Order Comment: No: D o not add to previous draw Performed By: #### 5 0608 ####[address] MCV (RBC) [Entitic vol] 89.1 fL Normal 82.0-98.0 [facility] Comment on above: Order Comment: No: D o not add to previous draw Performed By: #### 5 0608 ####[facility] [facility].[address] Nucleated RBC/100 WBC (Bld) [Ratio] 0 % Normal 0-0 [facility] Comment on above: Order Comment: No: D o not add to previous draw Performed By: #### 5 0608 ####[facility] [facility] [address], [facility] PLAT CNT 342 10*3/uL Normal 150-400 [facility] Comment on above: Order Comment: No: D o not add to previous draw Performed By: #### 5 0608 ####[facility] [address].[address] RBC (Bld) [#/Vol] 3.30 10*6/uL Low 4.20-5.70 [facility] Comment on above: Order Comment: No: D o not add to previous draw Performed By: #### 5 0608 ####[facility] [facility].[address] WBC (Bld) [#/Vol] 7.22 10*3/uL Normal 4.00-10.60 [facility] Comment on above: Order Comment: No: D o not add to previous draw Performed By: #### 5 0608 ####[facility] [facility] [address], [facility] MAGNESIUM BLOODon 05-23-2021 Magnesium [Mass/Vol] 1.9 mg/dL Normal 1.9-2.7 [facility] Comment on above: Order Comment: No: D o not add to previous draw Performed By: #### 4 1000, 89402, 30421 ####[facility] [facility] [address], [facility] PHOSPHORUS BLOODon Phosphate [Mass/Vol] 3.4 mg/dL Normal 2.5-5.0 [facility] Comment on above: Order Comment: No: D o not add to previous draw Performed By: #### 4 1000, 21919, 48730 ####[facility] [place] [address], [place] POC GLUCOSE LABon 05-23-2021 Glucose [Mass/Vol] 141 mg/dL High 70-100 [facility] Comment on above: Performed By: #### 8 5499 ####[facility] [place] [address], [place] Glucose [Mass/Vol] 147 mg/dL High 70-100 [facility] Comment on above: Performed By: #### 8 5499 ####[facility] [place] [address], [place] Glucose [Mass/Vol] 138 mg/dL High 70-100 [facility] Comment on above: Performed By: #### 8 5499 ####[facility] [place] [address], [place] Glucose [Mass/Vol] 112 mg/dL High 70-100 [facility] Comment on above: Performed By: #### 8 5499 ####[facility] [place] [address], [place] Glucose [Mass/Vol] 121 mg/dL High 70-100 [facility] Comment on above: Performed By: #### 8 5499 ####[facility] [place] [address], [place] POC SARS COV2 ANTIGEN NEGATI VEon 05-23-2021 POC SARS COV2 ANTIGEN NEG Negative Normal NEGATIVE [facility] Comment on above: Result Comment: Nega [...] of clinicalsigns and symptoms consistent with COVID-19.The [employer] COVID-19 Ag Card is a lateral flow immunoassay intended forthe qualitative detection of nucleocapsid protein antigen [id number] in direct nasal swabs from individuals within [...] Certificate ofAccreditation. Performed By: #### 3 1977 ####[place] [address] [address] PORTABLE CHEST 1 VIEWon 04-26 PORTABLE CHEST 1 VIEW Normal [facility] Comment on above: Order Comment: evalu ate for Ate[employer] VANCOMYCIN RANDOMon 05-23-20 21 VANCOMYCIN RAND 19.6 mcg/mL Normal [facility] Comment on above: Order Comment: No: D o not add to previous draw Performed By: #### 9 4980 ####[place] [address] BASIC METABOLIC PANELon 04-25 Calcium [Mass/Vol] 8.6 mg/dL Normal 8.6-10.3 [facility] Comment on above: Order Comment: No: D o not add to previous draw Performed By: #### 0 0071, 79332, 16924 ####[facility] Chloride [Moles/Vol] 98 mmol/L Normal 98-107 [facility] Comment on above: Order Comment: No: D o not add to previous draw Performed By: #### 0 0071, 85417, 50733 ####[facility] [place] [address], [facility] CO2 [Moles/Vol] 33 mmol/L High 21-31 [facility] Comment on above: Order Comment: No: D o not add to previous draw Performed By: #### 0 0071, 38315, 90894 ####[facility] [place] [address], [facility] Creatinine [Mass/Vol] 1.21 mg/dL Normal 0.70-1.30 [facility] Comment on above: Order Comment: No: D o not add to previous draw Performed By: #### 0 0071, 96356, 11842 ####[facility] [facility] eGFR- non- 58 ml/min/1.73sq m Abnormal >60 [facility] Comment on above: Order Comment: No: D o not add to previous draw Result Comment: Calc ulation may not be valid for patients over 70 years Performed By: #### 0 0071, 42852, 32005 ####[facility] [place] [address], [facility] GFR/1.73 sq M.predicted among blacks MDRD (S/P/Bld) [Vol rate/Area] mL/min/{1.73_m2} Normal >60 [facility] Comment on above: Order Comment: No: D o not add to previous draw Result Comment: Calc ulation may not be valid for patients over 70 years Performed By: #### 0 0071, 15481, 38850 ####[facility] [place] [address], [facility] Glucose [Mass/Vol] 115 mg/dL High 70-100 [facility] Comment on above: Order Comment: No: D o not add to previous draw Performed By: #### 0 0071, 20855, 43807 ####[facility] [place] [address], [facility] Potassium [Moles/Vol] 3.9 mmol/L Normal 3.5-5.1 [facility] Comment on above: Order Comment: No: D o not add to previous draw Performed By: #### 0 0071, 37273, 77050 ####[facility] [place] [address], [facility] Sodium [Moles/Vol] 135 mmol/L Low 136-145 [facility] Comment on above: Order Comment: No: D o not add to previous draw Performed By: #### 0 0071, 47362, 46160 ####[facility] [place] [address], [facility] Urea nitrogen [Mass/Vol] 22 mg/dL Normal 7-25 [facility] Comment on above: Order Comment: No: D o not add to previous draw Performed By: #### 0 1, 57620, 46853 ####[facility] [place] [address], [facility] CBC COMPLETE BLOOD COUNTon 0 05-22-2021 Erythrocyte distribution width (RBC) [Ratio] 14.3 % Normal 11.5-15.0 [facility] Comment on above: Order Comment: No: D o not add to previous draw Performed By: #### 5 0608 ####[facility] [place] [address], [facility] Hematocrit (Bld) [Volume fraction] 24.7 % Low 39.0-50.0 [facility] Comment on above: Order Comment: No: D o not add to previous draw Performed By: #### 5 0608 ####[facility] [id number], [facility] Hemoglobin (Bld) [Mass/Vol] 7.6 g/dL Low 13.0-17.0 [facility] Comment on above: Order Comment: No: D o not add to previous draw Performed By: #### 5 0608 ####[place] [address] [address] MCH (RBC) [Entitic mass] 28.3 pg Normal 27.0-33.0 [facility] Comment on above: Order Comment: No: D o not add to previous draw Performed By: #### 5 0608 ####[facility] MCHC (RBC) [Mass/Vol] 30.8 g/dL Low 32.0-35.0 [facility] Comment on above: Order Comment: No: D o not add to previous draw Performed By: #### 5 0608 ####[address] MCV (RBC) [Entitic vol] 91.8 fL Normal 82.0-98.0 [facility] Comment on above: Order Comment: No: D o not add to previous draw Performed By: #### 5 0608 ####[address] Nucleated RBC/100 WBC (Bld) [Ratio] 0 % Normal 0-0 [facility] Comment on above: Order Comment: No: D o not add to previous draw Performed By: #### 5 0608 ####[address] PLAT CNT 313 10*3/uL Normal 150-400 [facility] Comment on above: Order Comment: No: D o not add to previous draw Performed By: #### 5 0608 ####[address] RBC (Bld) [#/Vol] 2.69 10*6/uL Low 4.20-5.70 [facility] Comment on above: Order Comment: No: D o not add to previous draw Performed By: #### 5 0608 ####[facility] [facility] [address], [facility] WBC (Bld) [#/Vol] 7.75 10*3/uL Normal 4.00-10.60 [facility] Comment on above: Order Comment: No: D o not add to previous draw Performed By: #### 5 0608 ####[facility] [facility] [address], [facility] MAGNESIUM BLOODon 05-22-2021 Magnesium [Mass/Vol] 1.9 mg/dL Normal 1.9-2.7 [facility] Comment on above: Order Comment: No: D o not add to previous draw Performed By: #### 0 0071, 99624, 19343 ####[facility] [facility].[address] Operative Reporton Operative Report Normal [facility] POC GLUCOSE LABon 05-22-2021 Glucose [Mass/Vol] 126 mg/dL High 70-100 [facility] Comment on above: Performed By: #### 8 5499 ####[facility] [facility] [place] [address], [facility] Glucose [Mass/Vol] 136 mg/dL High 70-100 [facility] Comment on above: Performed By: #### 8 5499 ####[facility] [facility] [place] [address], [facility] Glucose [Mass/Vol] 156 mg/dL High 70-100 [facility] Comment on above: Performed By: #### 8 5499 ####[facility] [place] [address], [facility] PORTABLE CHEST 1 VIEWon 04-25 PORTABLE CHEST 1 VIEW Normal [facility] Comment on above: Order Comment: Evalu ate for Atelectasis, common RBC'S 1 UNITon 05-22-2021 CROSSMATCH INTERP 1 COMP Normal [facility] Comment on above: Performed By: #### 8 6001 ####[facility] [facility].[address] PRODUCT CODE 1 E0336 Normal [facility] Comment on above: Performed By: #### 8 6001 ####[facility] [facility].[address] PRODUCT STATUS 1 PT Normal [facility] Comment on above: Result Comment: Resu lt changed by IF on 05/22/2021 13:33. The previous value was XM.Result changed by IF on 05/23/2021 00:30. The previous value was IS. Performed By: #### 8 6001 ####[facility] [facility].[address] UNIT ABO 1 O Normal [facility] Comment on above: Performed By: #### 8 6001 ####[facility] [facility].[address] UNIT ID 1 [id number] Normal [facility] Comment on above: Performed By: #### 8 6001 ####[facility] [facility].[address] UNIT RH 1 Positive Normal [facility] Comment on above: Performed By: #### 8 6001 ####[facility] [facility] [address], [facility] RBC'S 3 UNITSon 05-22-2021 CROSSMATCH INTERP 1 COMP Normal [facility] Comment on above: Order Comment: Hemog lobin < 9 gm/dl with known cardiac or cerebrovascular disease Performed By: #### 8 6003 ####[facility] [place] [address], [facility] CROSSMATCH INTERP 2 COMP Normal [facility] Comment on above: Order Comment: Hemog lobin < 9 gm/dl with known cardiac or cerebrovascular disease Performed By: #### 8 6003 ####[facility] [place] [address], [facility] CROSSMATCH INTERP 3 COMP Normal [facility] Comment on above: Order Comment: Hemog lobin < 9 gm/dl with known cardiac or cerebrovascular disease Performed By: #### 8 6003 ####[facility] [place] [address], [facility] PRODUCT CODE 1 E0336 Normal [facility] Comment on above: Order Comment: Hemog lobin < 9 gm/dl with known cardiac or cerebrovascular disease Performed By: #### 8 6003 ####[facility] [place] [address], [facility] PRODUCT CODE 2 E0685 Normal [facility] Comment on above: Order Comment: Hemog lobin < 9 gm/dl with known cardiac or cerebrovascular disease Performed By: #### 8 6003 ####[facility] [place] [address], [facility] PRODUCT CODE 3 E0336 Normal [facility] Comment on above: Order Comment: Hemog lobin < 9 gm/dl with known cardiac or cerebrovascular disease Performed By: #### 8 6003 ####[facility] [place] [address], [facility] PRODUCT STATUS 1 PT Normal [facility] Comment on above: Order Comment: Hemog lobin < 9 gm/dl with known cardiac or cerebrovascular disease Result Comment: Resu lt changed by IF on 05/22/2021 17:51. The previous value was XM.Result changed by IF on 05/23/2021 00:30. The previous value was IS. Performed By: #### 8 6003 ####[facility] [place] [address], [facility] PRODUCT STATUS 2 RE Normal [facility] Comment on above: Order Comment: Hemog lobin < 9 gm/dl with known cardiac or cerebrovascular disease Result Comment: Resu lt changed by IF on 05/24/2021 07:35. The previous value was XM. Performed By: #### 8 6003 ####[facility] [place] [address], [facility] PRODUCT STATUS 3 RE Normal [facility] Comment on above: Order Comment: Hemog lobin < 9 gm/dl with known cardiac or cerebrovascular disease Result Comment: Resu lt changed by IF on 05/24/2021 07:35. The previous value was XM. Performed By: #### 8 6003 ####[facility] [place] [address], [facility] UNIT ABO 1 O Normal [facility] Comment on above: Order Comment: Hemog lobin < 9 gm/dl with known cardiac or cerebrovascular disease Performed By: #### 8 6003 ####[facility] [place] [address], [facility] UNIT ABO 2 O Normal [facility] Comment on above: Order Comment: Hemog lobin < 9 gm/dl with known cardiac or cerebrovascular disease Performed By: #### 8 6003 ####[facility] [place] [address], [facility] UNIT ABO 3 O Normal [facility] Comment on above: Order Comment: Hemog lobin < 9 gm/dl with known cardiac or cerebrovascular disease Performed By: #### 8 6003 ####[facility] [place] [address], [facility] UNIT ID 1 [id number] Normal [facility] Comment on above: Order Comment: Hemog lobin < 9 gm/dl with known cardiac or cerebrovascular disease Performed By: #### 8 6003 ####[facility] UNIT ID 2 [id number] Normal [facility] Comment on above: Order Comment: Hemog lobin < 9 gm/dl with known cardiac or cerebrovascular disease Performed By: #### 8 6003 ####[facility] UNIT ID 3 [id number] Normal [facility] Comment on above: Order Comment: Hemog lobin < 9 gm/dl with known cardiac or cerebrovascular disease Performed By: #### 8 6003 ####[facility] UNIT RH 1 Negative Normal [facility] Comment on above: Order Comment: Hemog lobin < 9 gm/dl with known cardiac or cerebrovascular disease Performed By: #### 8 6003 ####[facility] UNIT RH 2 Positive Normal [facility] Comment on above: Order Comment: Hemog lobin < 9 gm/dl with known cardiac or cerebrovascular disease Performed By: #### 8 6003 ####[facility] UNIT RH 3 Positive Normal [facility] Comment on above: Order Comment: Hemog lobin < 9 gm/dl with known cardiac or cerebrovascular disease Performed By: #### 8 6003 ####[facility] VANCOMYCIN TIMEDon 1 VANCOMYCIN TIMED 19.6 mcg/mL Normal [facility] Comment on above: Performed By: #### 0 0071, 54767, 22984 ####[facility] BASIC METABOLIC PANELon 09-2 Calcium [Mass/Vol] 8.5 mg/dL Low 8.6-10.3 [facility] Comment on above: Order Comment: No: D o not add to previous draw Performed By: #### 1 0070, 05680, 75874 ####[facility] [place] [address], [facility] Chloride [Moles/Vol] 96 mmol/L Low 98-107 [facility] Comment on above: Order Comment: No: D o not add to previous draw Performed By: #### 1 0070, 00161, 85529 ####[facility] [place] [address], [facility] CO2 [Moles/Vol] 37 mmol/L High 21-31 [facility] Comment on above: Order Comment: No: D o not add to previous draw Performed By: #### 1 0070, 19599, 79580 ####[facility] [place] [address], [facility] Creatinine [Mass/Vol] 0.92 mg/dL Normal 0.70-1.30 [facility] Comment on above: Order Comment: No: D o not add to previous draw Performed By: #### 1 0070, 46826, 45549 ####[facility] [place] [address], [facility] GFR/1.73 sq M.predicted among blacks MDRD (S/P/Bld) [Vol rate/Area] mL/min/{1.73_m2} Normal >60 [facility] Comment on above: Order Comment: No: D o not add to previous draw Result Comment: Calc ulation may not be valid for patients over 70 years Performed By: #### 1 0070, 54969, 06282 ####[facility] [place] [address], [place] GFR/1.73 sq M.predicted among non-blacks MDRD (S/P/Bld) [Vol rate/Area] mL/min/{1.73_m2} Normal >60 [facility] Comment on above: Order Comment: No: D o not add to previous draw Result Comment: Calc ulation may not be valid for patients over 70 years Performed By: #### 1 0070, 25631, 25783 ####[facility] [place] [address], [facility] Glucose [Mass/Vol] 117 mg/dL High 70-100 [facility] Comment on above: Order Comment: No: D o not add to previous draw Performed By: #### 1 0070, 99016, 75812 ####[facility] [facility] [address], [facility] Potassium [Moles/Vol] 3.9 mmol/L Normal 3.5-5.1 [facility] Comment on above: Order Comment: No: D o not add to previous draw Performed By: #### 1 0070, 99078, 40899 ####[facility] [facility] [address], [facility] Sodium [Moles/Vol] 134 mmol/L Low 136-145 [facility] Comment on above: Order Comment: No: D o not add to previous draw Performed By: #### 1 0070, 01020, 23109 ####[facility] [facility] [place] [address], [facility] Urea nitrogen [Mass/Vol] 17 mg/dL Normal 7-25 [facility] Comment on above: Order Comment: No: D o not add to previous draw Performed By: #### 1 0070, 49382, 55574 ####[facility] [facility] [address], [facility] CBC COMPLETE BLOOD COUNTon 0 - Erythrocyte distribution width (RBC) [Ratio] 14.3 % Normal 11.5-15.0 [facility] Comment on above: Order Comment: No: D o not add to previous draw Performed By: #### 5 0608 ####[facility] Hematocrit (Bld) [Volume fraction] 27.2 % Low 39.0-50.0 [facility] Comment on above: Order Comment: No: D o not add to previous draw Performed By: #### 5 0608 ####[facility] Hemoglobin (Bld) [Mass/Vol] 8.1 g/dL Low 13.0-17.0 [facility] Comment on above: Order Comment: No: D o not add to previous draw Performed By: #### 5 0608 ####[address] MCH (RBC) [Entitic mass] 27.6 pg Normal 27.0-33.0 [facility] Comment on above: Order Comment: No: D o not add to previous draw Performed By: #### 5 0608 ####[facility] MCHC (RBC) [Mass/Vol] 29.8 g/dL Low 32.0-35.0 [facility] Comment on above: Order Comment: No: D o not add to previous draw Performed By: #### 5 0608 ####[facility] MCV (RBC) [Entitic vol] 92.8 fL Normal 82.0-98.0 [facility] Comment on above: Order Comment: No: D o not add to previous draw Performed By: #### 5 0608 ####[facility] Nucleated RBC/100 WBC (Bld) [Ratio] 0 % Normal 0-0 [facility] Comment on above: Order Comment: No: D o not add to previous draw Performed By: #### 5 0608 ####[facility] [facility] [address], [facility] PLAT CNT 329 10*3/uL Normal 150-400 [facility] Comment on above: Order Comment: No: D o not add to previous draw Performed By: #### 5 0608 ####[facility] [facility].[address] RBC (Bld) [#/Vol] 2.93 10*6/uL Low 4.20-5.70 [facility] Comment on above: Order Comment: No: D o not add to previous draw Performed By: #### 5 0608 ####[facility] [facility].[address] WBC (Bld) [#/Vol] 6.21 10*3/uL Normal 4.00-10.60 [facility] Comment on above: Order Comment: No: D o not add to previous draw Performed By: #### 5 0608 ####[place] [address] [facility].[address] MAGNESIUM BLOODon 05-21-2021 Magnesium [Mass/Vol] 2.0 mg/dL Normal 1.9-2.7 [facility] Comment on above: Order Comment: No: D o not add to previous draw Performed By: #### 1 0070, 43402, 47342 ####[facility] [facility].[address] Operative Reporton 1 Operative Report Normal [facility] PHOSPHORUS BLOODon 1 Phosphate [Mass/Vol] 4.0 mg/dL Normal 2.5-5.0 [facility] Comment on above: Order Comment: No: D o not add to previous draw Performed By: #### 1 0070, 96411, 41738 ####[facility] [place] [address], [facility] POC GLUCOSE LABon 05-21-2021 Glucose [Mass/Vol] 143 mg/dL High 70-100 [facility] Comment on above: Performed By: #### 8 5499 ####[facility] [place] [address], [place] Glucose [Mass/Vol] 123 mg/dL High 70-100 [facility] Comment on above: Performed By: #### 8 5499 ####[facility] [place] [address], [place] Glucose [Mass/Vol] 128 mg/dL High 70-100 [facility] Comment on above: Performed By: #### 8 5499 ####[facility] [place] [address], [place] Glucose [Mass/Vol] 158 mg/dL High 70-100 [facility] Comment on above: Performed By: #### 8 5499 ####[facility] [facility] [place] [address], [facility] PORTABLE CHEST 1 VIEWon 04-25 PORTABLE CHEST 1 VIEW Normal [facility] Comment on above: Order Comment: evalu ate for Atelectasis PROTHROMBIN TIMEon INR Coag (PPP) [Relative time] 1.12 {INR} Normal 0.91-1.16 [facility] Comment on above: Order Comment: No: [...] OF ACTION, CLINICALEFFECTIVENESS, AND OPTIMAL THERAPEUTIC RANGE. [id number]. Performed By: #### 5 6101 ####[place] [address] [address] PT Coag (PPP) [Time] 14.4 s Normal 12.3-14.8 [facility] Comment on above: Order Comment: No: D o not add to previous draw Result Comment: ALL RESULTS MUST BE INTERPRETED WITH RESPECT TO BLOOD DRAWING ARTIFACTOR DILUTION ERROR OF ANTICOAGULANT AT THE TIME OF SAMPLING. Performed By: #### 5 6101 ####[facility] BASIC METABOLIC PANELon 04-25 Calcium [Mass/Vol] 8.8 mg/dL Normal 8.6-10.3 [facility] Comment on above: Order Comment: No: D o not add to previous draw Performed By: #### 1 0070, 16639, 37768 ####[facility] [facility].[address] Chloride [Moles/Vol] 96 mmol/L Low 98-107 [facility] Comment on above: Order Comment: No: D o not add to previous draw Performed By: #### 1 0070, 15183, 51249 ####[facility] [facility] [address], [facility] CO2 [Moles/Vol] 33 mmol/L High 21-31 [facility] Comment on above: Order Comment: No: D o not add to previous draw Performed By: #### 1 0, 20739, 75547 ####[facility] [place] [address], [facility] Creatinine [Mass/Vol] 0.90 mg/dL Normal 0.70-1.30 [facility] Comment on above: Order Comment: No: D o not add to previous draw Performed By: #### 1 0, 12982, 44461 ####[facility] [place] [address], [place] GFR/1.73 sq M.predicted among blacks MDRD (S/P/Bld) [Vol rate/Area] mL/min/{1.73_m2} Normal >60 [facility] Comment on above: Order Comment: No: D o not add to previous draw Result Comment: Calc ulation may not be valid for patients over 70 years Performed By: #### 1 0, 31723, 34259 ####[facility] [place] [address], [place] GFR/1.73 sq M.predicted among non-blacks MDRD (S/P/Bld) [Vol rate/Area] mL/min/{1.73_m2} Normal >60 [facility] Comment on above: Order Comment: No: D o not add to previous draw Result Comment: Calc ulation may not be valid for patients over 70 years Performed By: #### 1 0, 15718, 46445 ####[facility] [place] [address], [place] Glucose [Mass/Vol] 113 mg/dL High 70-100 [facility] Comment on above: Order Comment: No: D o not add to previous draw Performed By: #### 1 0, 93603, 85912 ####[facility] [place] [address], [place] Potassium [Moles/Vol] 3.6 mmol/L Normal 3.5-5.1 [facility] Comment on above: Order Comment: No: D o not add to previous draw Performed By: #### 1 0070, 38548, 57919 ####[facility] [place] [address], [facility] Sodium [Moles/Vol] 135 mmol/L Low 136-145 [facility] Comment on above: Order Comment: No: D o not add to previous draw Performed By: #### 1 0070, 62252, 19803 ####[facility] [place] [address], [facility] Urea nitrogen [Mass/Vol] 15 mg/dL Normal 7-25 [facility] Comment on above: Order Comment: No: D o not add to previous draw Performed By: #### 1 0, 32761, 49462 ####[facility] [facility] [place] [address], [facility] CBC COMPLETE BLOOD COUNTon 05-20-2021 Erythrocyte distribution width (RBC) [Ratio] 14.1 % Normal 11.5-15.0 [facility] Comment on above: Order Comment: No: D o not add to previous draw Performed By: #### 5 0608 ####[facility] [place] [address], [facility] Hematocrit (Bld) [Volume fraction] 28.9 % Low 39.0-50.0 [facility] Comment on above: Order Comment: No: D o not add to previous draw Performed By: #### 5 0608 ####[facility] [id number], [facility] Hemoglobin (Bld) [Mass/Vol] 8.9 g/dL Low 13.0-17.0 [facility] Comment on above: Order Comment: No: D o not add to previous draw Performed By: #### 5 0608 ####[facility] MCH (RBC) [Entitic mass] 28.3 pg Normal 27.0-33.0 [facility] Comment on above: Order Comment: No: D o not add to previous draw Performed By: #### 5 0608 ####[facility] [facility] MCHC (RBC) [Mass/Vol] 30.8 g/dL Low 32.0-35.0 [facility] Comment on above: Order Comment: No: D o not add to previous draw Performed By: #### 5 0608 ####[facility] [facility].[address] MCV (RBC) [Entitic vol] 92.0 fL Normal 82.0-98.0 [facility] Comment on above: Order Comment: No: D o not add to previous draw Performed By: #### 5 0608 ####[facility] [facility].[address] Nucleated RBC/100 WBC (Bld) [Ratio] 0 % Normal 0-0 [facility] Comment on above: Order Comment: No: D o not add to previous draw Performed By: #### 5 0608 ####[facility] [facility] [place] [address], [facility] PLAT CNT 339 10*3/uL Normal 150-400 The [facility] Comment on above: Order Comment: No: D o not add to previous draw Performed By: #### 5 0608 ####[facility] [facility] [place] [address], [facility] RBC (Bld) [#/Vol] 3.14 10*6/uL Low 4.20-5.70 The [facility] Comment on above: Order Comment: No: D o not add to previous draw Performed By: #### 5 0608 ####[facility] [facility] [place] [address], [facility] WBC (Bld) [#/Vol] 6.69 10*3/uL Normal 4.00-10.60 [facility] Comment on above: Order Comment: No: D o not add to previous draw Performed By: #### 5 0608 ####[facility] [facility].[address] Erythrocyte distribution width (RBC) [Ratio] 14.1 % Normal 11.5-15.0 The [facility] Comment on above: Order Comment: No: D o not add to previous draw Performed By: #### 5 0608 ####[address] Hematocrit (Bld) [Volume fraction] 29.5 % Low 39.0-50.0 The [facility] Comment on above: Order Comment: No: D o not add to previous draw Performed By: #### 5 0608 ####[place] [address] [address] Hemoglobin (Bld) [Mass/Vol] 9.3 g/dL Low 13.0-17.0 The [facility] Comment on above: Order Comment: No: D o not add to previous draw Performed By: #### 5 0608 ####[address] MCH (RBC) [Entitic mass] 28.2 pg Normal 27.0-33.0 The [facility] Comment on above: Order Comment: No: D o not add to previous draw Performed By: #### 5 0608 ####[facility] [facility] [place] [address], [facility] MCHC (RBC) [Mass/Vol] 31.5 g/dL Low 32.0-35.0 The [facility] Comment on above: Order Comment: No: D o not add to previous draw Performed By: #### 5 0608 ####[address] [place] [address], [place] MCV (RBC) [Entitic vol] 89.4 fL Normal 82.0-98.0 The [facility] Comment on above: Order Comment: No: D o not add to previous draw Performed By: #### 5 0608 ####[place] [address] [address] Nucleated RBC/100 WBC (Bld) [Ratio] 0 % Normal 0-0 The [facility] Comment on above: Order Comment: No: D o not add to previous draw Performed By: #### 5 0608 ####[address] PLAT CNT 338 10*3/uL Normal 150-400 The [facility] Comment on above: Order Comment: No: D o not add to previous draw Performed By: #### 5 0608 ####[address] RBC (Bld) [#/Vol] 3.30 10*6/uL Low 4.20-5.70 The [facility] Comment on above: Order Comment: No: D o not add to previous draw Performed By: #### 5 0608 ####[address] WBC (Bld) [#/Vol] 6.66 10*3/uL Normal 4.00-10.60 The [facility] Comment on above: Order Comment: No: D o not add to previous draw Performed By: #### 5 0608 ####[address] MAGNESIUM BLOODon 05-20-2021 Magnesium [Mass/Vol] 1.9 mg/dL Normal 1.9-2.7 The [facility] Comment on above: Order Comment: No: D o not add to previous draw Performed By: #### 1 0070, 47767, 49137 ####[facility] [place] [address], [place] PHOSPHORUS BLOODon 1 Phosphate [Mass/Vol] 3.7 mg/dL Normal 2.5-5.0 The [facility] Comment on above: Order Comment: No: D o not add to previous draw Performed By: #### 1 0070, 31838, 99829 ####[facility] [place] [address], [place] POC GLUCOSE LABon 05-20-2021 Glucose [Mass/Vol] 130 mg/dL High 70-100 [facility] Comment on above: Performed By: #### 8 5499 ####[facility] [place] [address], [place] Glucose [Mass/Vol] 119 mg/dL High 70-100 [facility] Comment on above: Performed By: #### 8 5499 ####[facility] [place] [address], [place] Glucose [Mass/Vol] 118 mg/dL High 70-100 [facility] Comment on above: Performed By: #### 8 5499 ####[facility] [place] [address], [place] Glucose [Mass/Vol] 118 mg/dL High 70-100 [facility] Comment on above: Performed By: #### 8 5499 ####[facility] [place] [address], [place] Glucose [Mass/Vol] 119 mg/dL High 70-100 [facility] Comment on above: Performed By: #### 8 5499 ####[facility] [place] [address], [place] PROTHROMBIN TIMEon 1 INR Coag (PPP) [Relative time] 1.09 {INR} Normal 0.91-1.16 [facility] Comment on above: Order Comment: No: [...] OF ACTION, CLINICALEFFECTIVENESS, AND OPTIMAL THERAPEUTIC RANGE. [id number]. Performed By: #### 5 6101 ####[facility] [facility] [address], [facility] PT Coag (PPP) [Time] 14.1 s Normal 12.3-14.8 [facility] Comment on above: Order Comment: No: D o not add to previous draw Result Comment: ALL RESULTS MUST BE INTERPRETED WITH RESPECT TO BLOOD DRAWING ARTIFACTOR DILUTION ERROR OF ANTICOAGULANT AT THE TIME OF SAMPLING. Performed By: #### 5 6101 ####[facility] [facility] [place] [address], [facility] TYPE AND SCREENon 05-20-2021 ABO INTERPRETATION O Normal [facility] Comment on above: Performed By: #### 6 2586 ####[facility] [facility] [place] [address], [facility] RH INTERPRETATION Positive Normal The [facility] Comment on above: Performed By: #### 6 2586 ####[facility] *MRSA/MSSA DNA NASALon 05-19 *MRSA/MSSA DNA NASAL Clinical Report: (D) Specimen: NASAL SWAB Collected: 05/19/2021 10:27 Status: Final Last Updated: 05/19/2021 15:02 MSSA DNA (Final) Negative MRSA DNA (Final) Negative Normal The [facility] Comment on above: Performed By: #### 3 1595 ####[facility] CBC W/DIFFon 05-19-2021 ABS IMM GRANS 0.0 10*3/uL Normal 0.0-0.2 The [facility] Comment on above: Order Comment: No: D o not add to previous draw Performed By: #### 5 0103 ####[facility] ABS NEUTROPHILS 4.3 10*3/uL Normal 1.6-7.6 The [facility] Comment on above: Order Comment: No: D o not add to previous draw Performed By: #### 5 0103 ####[facility] Basophils (Bld) [#/Vol] 0.0 10*3/uL Normal 0.0-0.2 [facility] Comment on above: Order Comment: No: D o not add to previous draw Performed By: #### 5 0103 ####[facility] Basophils/100 WBC (Bld) 0.5 % Normal 0.0-1.0 [facility] Comment on above: Order Comment: No: D o not add to previous draw Performed By: #### 5 0103 ####[facility] [place] [address], [place] Eosinophils (Bld) [#/Vol] 0.2 10*3/uL Normal 0.0-0.5 [facility] Comment on above: Order Comment: No: D o not add to previous draw Performed By: #### 5 0103 ####[facility] Eosinophils/100 WBC (Bld) 3.1 % Normal 0.0-6.0 [facility] Comment on above: Order Comment: No: D o not add to previous draw Performed By: #### 5 0103 ####[facility] Erythrocyte distribution width (RBC) [Ratio] 14.2 % Normal 11.5-15.0 [facility] Comment on above: Order Comment: No: D o not add to previous draw Performed By: #### 5 0103 ####[facility] Hematocrit (Bld) [Volume fraction] 29.0 % Low 39.0-50.0 [facility] Comment on above: Order Comment: No: D o not add to previous draw Performed By: #### 5 3 ####[facility] Hemoglobin (Bld) [Mass/Vol] 9.2 g/dL Low 13.0-17.0 [facility] Comment on above: Order Comment: No: D o not add to previous draw Performed By: #### 5 0103 ####[facility] [place] [address], [facility] IMMATURE GRANS 0.5 % Normal 0.0-1.0 The [facility] Comment on above: Order Comment: No: D o not add to previous draw Performed By: #### 5 0103 ####[facility] Lymphocytes (Bld) [#/Vol] 1.0 10*3/uL Low 1.2-4.0 The [facility] Comment on above: Order Comment: No: D o not add to previous draw Performed By: #### 5 0103 ####[facility] Lymphocytes/100 WBC (Bld) 15.9 % Low 20.0-45.0 [facility] Comment on above: Order Comment: No: D o not add to previous draw Performed By: #### 5 3 ####[address] MCH (RBC) [Entitic mass] 28.5 pg Normal 27.0-33.0 [facility] Comment on above: Order Comment: No: D o not add to previous draw Performed By: #### 5 3 ####[facility] MCHC (RBC) [Mass/Vol] 31.7 g/dL Low 32.0-35.0 [facility] Comment on above: Order Comment: No: D o not add to previous draw Performed By: #### 5 3 ####[place] [address] [address] MCV (RBC) [Entitic vol] 89.8 fL Normal 82.0-98.0 [facility] Comment on above: Order Comment: No: D o not add to previous draw Performed By: #### 5 0103 ####[facility] [place] [address], [facility] Monocytes (Bld) [#/Vol] 0.6 10*3/uL Normal 0.1-1.0 The [facility] Comment on above: Order Comment: No: D o not add to previous draw Performed By: #### 5 3 ####[facility] [place] [address], [facility] MONOS 10.2 % Normal 5.0-12.0 The [facility] Comment on above: Order Comment: No: D o not add to previous draw Performed By: #### 5 0103 ####[facility] [id number], [facility] Neutrophils/100 WBC (Bld) 69.8 % Normal 40.0-72.0 The [facility] Comment on above: Order Comment: No: D o not add to previous draw Performed By: #### 5 0103 ####[facility] [facility] [address], [facility] Nucleated RBC/100 WBC (Bld) [Ratio] 0 % Normal 0-0 [facility] Comment on above: Order Comment: No: D o not add to previous draw Performed By: #### 5 0103 ####[facility] [facility] [place] [address], [facility] PLAT CNT 294 10*3/uL Normal 150-400 The [facility] Comment on above: Order Comment: No: D o not add to previous draw Performed By: #### 5 0103 ####[facility] [facility] [place] [address], [facility] RBC (Bld) [#/Vol] 3.23 10*6/uL Low 4.20-5.70 The [facility] Comment on above: Order Comment: No: D o not add to previous draw Performed By: #### 5 0103 ####[facility] [facility].[place] [id number], [place] WBC (Bld) [#/Vol] 6.09 10*3/uL Normal 4.00-10.60 The [facility] Comment on above: Order Comment: No: D o not add to previous draw Performed By: #### 5 0103 ####[facility] [facility] [place] [address], [facility] COMP METABOLIC PANELon 05-19 Albumin [Mass/Vol] 2.8 g/dL Low 3.5-5.7 The [facility] Comment on above: Order Comment: No: D o not add to previous draw Performed By: #### 4 1000, 78221, 95842 ####[facility] [place] [address], [facility] ALKALINE PHOSPH 59 IU/L Normal 34-104 The [facility] Comment on above: Order Comment: No: D o not add to previous draw Performed By: #### 4 1000, 48746, 64804 ####[facility] [facility] [place] [address], [facility] ALT [Catalytic activity/Vol] 9 U/L Normal 7-52 [facility] Comment on above: Order Comment: No: D o not add to previous draw Performed By: #### 4 1000, 18547, 26876 ####[facility] [facility] [place] [address], [facility] AST [Catalytic activity/Vol] 20 U/L Normal 13-39 The [facility] Comment on above: Order Comment: No: D o not add to previous draw Performed By: #### 4 1000, 00258, 77043 ####[facility] [facility] [place] [address], [facility] Bilirubin [Mass/Vol] 0.6 mg/dL Normal 0.3-1.0 The [facility] Comment on above: Order Comment: No: D o not add to previous draw Performed By: #### 4 1000, 02500, 97004 ####[facility] [facility] [place] [address], [facility] Calcium [Mass/Vol] 8.5 mg/dL Low 8.6-10.3 The [facility] Comment on above: Order Comment: No: D o not add to previous draw Performed By: #### 4 1000, 23809, 99230 ####[facility] [place] [address], [place] Chloride [Moles/Vol] 98 mmol/L Normal 98-107 The [facility] Comment on above: Order Comment: No: D o not add to previous draw Performed By: #### 4 1000, 89543, 29865 ####[facility] [place] [address], [place] CO2 [Moles/Vol] 31 mmol/L Normal 21-31 The [facility] Comment on above: Order Comment: No: D o not add to previous draw Performed By: #### 4 1000, 96297, 38654 ####[facility] [place] [address], [place] Creatinine [Mass/Vol] 0.74 mg/dL Normal 0.70-1.30 The [facility] Comment on above: Order Comment: No: D o not add to previous draw Performed By: #### 4 1000, 95435, 22726 ####[facility] [place] [address], [place] GFR/1.73 sq M.predicted among blacks MDRD (S/P/Bld) [Vol rate/Area] mL/min/{1.73_m2} Normal >60 The [facility] Comment on above: Order Comment: No: D o not add to previous draw Result Comment: Calc ulation may not be valid for patients over 70 years Performed By: #### 4 1000, 08382, 70721 ####[facility] [place] [address], [place] GFR/1.73 sq M.predicted among non-blacks MDRD (S/P/Bld) [Vol rate/Area] mL/min/{1.73_m2} Normal >60 [facility] Comment on above: Order Comment: No: D o not add to previous draw Result Comment: Calc ulation may not be valid for patients over 70 years Performed By: #### 4 1000, 08195, 25724 ####[facility] [place] [address], [place] Glucose [Mass/Vol] 143 mg/dL High 70-100 The [facility] Comment on above: Order Comment: No: D o not add to previous draw Performed By: #### 4 1000, 37800, 07668 ####[facility] [place] [address], [place] Potassium [Moles/Vol] 3.4 mmol/L Low 3.5-5.1 The [facility] Comment on above: Order Comment: No: D o not add to previous draw Performed By: #### 4 1000, 02175, 45420 ####[facility] [place] [address], [place] Protein [Mass/Vol] 6.7 g/dL Normal 6.0-8.3 The [facility] Comment on above: Order Comment: No: D o not add to previous draw Performed By: #### 4 1000, 37685, 88706 ####[facility] [place] [address], [place] Sodium [Moles/Vol] 134 mmol/L Low 136-145 The [facility] Comment on above: Order Comment: No: D o not add to previous draw Performed By: #### 4 1000, 96877, 62500 ####[facility] [place] [address], [place] Urea nitrogen [Mass/Vol] 14 mg/dL Normal 7-25 [facility] Comment on above: Order Comment: No: D o not add to previous draw Performed By: #### 4 1000, 86862, 93861 ####[facility] [place] [address], [place] MAGNESIUM BLOODon 05-19-2021 Magnesium [Mass/Vol] 1.9 mg/dL Normal 1.9-2.7 The [facility] Comment on above: Order Comment: No: D o not add to previous draw Performed By: #### 4 1000, 80810, 88677 ####[facility] [place] [address], [facility] PHOSPHORUS BLOODon Phosphate [Mass/Vol] 3.1 mg/dL Normal 2.5-5.0 The [facility] Comment on above: Order Comment: No: D o not add to previous draw Performed By: #### 4 1000, 10832, 71395 ####[facility] [place] [address], [facility] POC GLUCOSE LABon 05-19-2021 Glucose [Mass/Vol] 124 mg/dL High 70-100 The [facility] Comment on above: Performed By: #### 8 5499 ####[facility] [facility] [place] [address], [place] Glucose [Mass/Vol] 132 mg/dL High 70-100 The [facility] Comment on above: Performed By: #### 8 5499 ####[facility] [facility] [place] [address], [place] Glucose [Mass/Vol] 153 mg/dL High 70-100 The [facility] Comment on above: Performed By: #### 8 5499 ####[facility] [facility] [place] [address], [place] Glucose [Mass/Vol] 133 mg/dL High 70-100 The [facility] Comment on above: Performed By: #### 8 5499 ####[facility] [facility] [place] [address], [place] POC SARS COV2 ANTIGEN NEGATI VEon 05-19-2021 POC SARS COV2 ANTIGEN NEG Negative Normal NEGATIVE The [facility] Comment on above: Result Comment: Nega [...] of clinicalsigns and symptoms consistent with COVID-19.The SuperbacW COVID-19 Ag Card is a lateral flow immunoassay intended forthe qualitative detection of nucleocapsid protein antigen [id number] in direct nasal swabs from individuals within [...] Certificate ofAccreditation. Performed By: #### 3 1976 ####[address] VANCOMYCIN TIMEDon VANCOMYCIN TIMED 16.3 mcg/mL Normal The [facility] Comment on above: Performed By: #### 3 0953 ####[place] [address] [address] CBC W/DIFFon 05-18-2021 ABS IMM GRANS 0.0 10*3/uL Normal 0.0-0.2 The [facility] Comment on above: Order Comment: No: D o not add to previous draw Performed By: #### 5 0103 ####[address] ABS NEUTROPHILS 5.1 10*3/uL Normal 1.6-7.6 The [facility] Comment on above: Order Comment: No: D o not add to previous draw Performed By: #### 5 0103 ####[address] [place] [address], [facility] Basophils (Bld) [#/Vol] 0.0 10*3/uL Normal 0.0-0.2 The [facility] Comment on above: Order Comment: No: D o not add to previous draw Performed By: #### 5 0103 ####[facility] [facility] [place] [address], [facility] Basophils/100 WBC (Bld) 0.4 % Normal 0.0-1.0 The [facility] Comment on above: Order Comment: No: D o not add to previous draw Performed By: #### 5 0103 ####[facility] [place] [address], [facility] Eosinophils (Bld) [#/Vol] 0.2 10*3/uL Normal 0.0-0.5 The [facility] Comment on above: Order Comment: No: D o not add to previous draw Performed By: #### 5 0103 ####[facility] [place] [address], [facility] Eosinophils/100 WBC (Bld) 2.6 % Normal 0.0-6.0 The [facility] Comment on above: Order Comment: No: D o not add to previous draw Performed By: #### 5 0103 ####[facility] Erythrocyte distribution width (RBC) [Ratio] 14.1 % Normal 11.5-15.0 [facility] Comment on above: Order Comment: No: D o not add to previous draw Performed By: #### 5 0103 ####[facility] [place] [address], [facility] Hematocrit (Bld) [Volume fraction] 27.5 % Low 39.0-50.0 The [facility] Comment on above: Order Comment: No: D o not add to previous draw Performed By: #### 5 0103 ####[facility] Hemoglobin (Bld) [Mass/Vol] 8.6 g/dL Low 13.0-17.0 [facility] Comment on above: Order Comment: No: D o not add to previous draw Performed By: #### 5 0103 ####[facility] [place] [address], [facility] IMMATURE GRANS 0.1 % Normal 0.0-1.0 The [facility] Comment on above: Order Comment: No: D o not add to previous draw Performed By: #### 5 0103 ####[address] Lymphocytes (Bld) [#/Vol] 1.3 10*3/uL Normal 1.2-4.0 [facility] Comment on above: Order Comment: No: D o not add to previous draw Performed By: #### 5 0103 ####[facility] [place] [address] Lymphocytes/100 WBC (Bld) 18.0 % Low 20.0-45.0 [facility] Comment on above: Order Comment: No: D o not add to previous draw Performed By: #### 5 0103 ####[facility] [place] [address], [facility] MCH (RBC) [Entitic mass] 28.7 pg Normal 27.0-33.0 [facility] Comment on above: Order Comment: No: D o not add to previous draw Performed By: #### 5 0103 ####[facility] [place] [address], [facility] MCHC (RBC) [Mass/Vol] 31.3 g/dL Low 32.0-35.0 [facility] Comment on above: Order Comment: No: D o not add to previous draw Performed By: #### 5 0103 ####[facility] [facility].[address] MCV (RBC) [Entitic vol] 91.7 fL Normal 82.0-98.0 [facility] Comment on above: Order Comment: No: D o not add to previous draw Performed By: #### 5 0103 ####[facility] [facility] [place] [address], [facility] Monocytes (Bld) [#/Vol] 0.7 10*3/uL Normal 0.1-1.0 [facility] Comment on above: Order Comment: No: D o not add to previous draw Performed By: #### 5 0103 ####[facility] [facility].[address] MONOS 10.0 % Normal 5.0-12.0 [facility] Comment on above: Order Comment: No: D o not add to previous draw Performed By: #### 5 0103 ####[facility] [facility].[address] Neutrophils/100 WBC (Bld) 68.9 % Normal 40.0-72.0 [facility] Comment on above: Order Comment: No: D o not add to previous draw Performed By: #### 5 0103 ####[facility] [facility].[address] Nucleated RBC/100 WBC (Bld) [Ratio] 0 % Normal 0-0 [facility] Comment on above: Order Comment: No: D o not add to previous draw Performed By: #### 5 0103 ####[facility] [facility] [place] [address], [facility] PLAT CNT 288 10*3/uL Normal 150-400 The [facility] Comment on above: Order Comment: No: D o not add to previous draw Performed By: #### 5 0103 ####[facility] RBC (Bld) [#/Vol] 3.00 10*6/uL Low 4.20-5.70 The [facility] Comment on above: Order Comment: No: D o not add to previous draw Performed By: #### 5 0103 ####[facility] [place] [address], [facility] WBC (Bld) [#/Vol] 7.40 10*3/uL Normal 4.00-10.60 The [facility] Comment on above: Order Comment: No: D o not add to previous draw Performed By: #### 5 0103 ####[facility] [facility] COMP METABOLIC PANELon 05-18 Albumin [Mass/Vol] 2.7 g/dL Low 3.5-5.7 The [facility] Comment on above: Order Comment: No: D o not add to previous draw Performed By: #### 4 1000, 85141, 49159, 71841 ####[facility] ALKALINE PHOSPH 62 IU/L Normal 34-104 The [facility] Comment on above: Order Comment: No: D o not add to previous draw Performed By: #### 4 1000, 29167, 53740, 23906 ####[facility] ALT [Catalytic activity/Vol] 11 U/L Normal 7-52 The [facility] Comment on above: Order Comment: No: D o not add to previous draw Performed By: #### 4 1000, 78995, 11156, 41072 ####[facility] [place] [address], [facility] AST [Catalytic activity/Vol] 31 U/L Normal 13-39 The [facility] Comment on above: Order Comment: No: D o not add to previous draw Performed By: #### 4 1000, 43049, 70375, 36971 ####[facility] [place] [address], [place] Bilirubin [Mass/Vol] 0.8 mg/dL Normal 0.3-1.0 [facility] Comment on above: Order Comment: No: D o not add to previous draw Performed By: #### 4 1000, 50894, 54787, 63726 ####[facility] [place] [address], [place] Calcium [Mass/Vol] 8.0 mg/dL Low 8.6-10.3 [facility] Comment on above: Order Comment: No: D o not add to previous draw Performed By: #### 4 1000, 68830, 64067, 76826 ####[facility] [place] [address], [place] Chloride [Moles/Vol] 98 mmol/L Normal 98-107 The [facility] Comment on above: Order Comment: No: D o not add to previous draw Performed By: #### 4 1000, 85723, 06584, 30873 ####[facility] [place] [address], [facility] CO2 [Moles/Vol] 33 mmol/L High 21-31 [facility] Comment on above: Order Comment: No: D o not add to previous draw Performed By: #### 4 1000, 64143, 47526, 22522 ####[facility] [place] [address], [place] Creatinine [Mass/Vol] 0.89 mg/dL Normal 0.70-1.30 The [facility] Comment on above: Order Comment: No: D o not add to previous draw Performed By: #### 4 1000, 74045, 71300, 56508 ####[facility] [id number], [place] GFR/1.73 sq M.predicted among blacks MDRD (S/P/Bld) [Vol rate/Area] mL/min/{1.73_m2} Normal >60 The [facility] Comment on above: Order Comment: No: D o not add to previous draw Result Comment: Calc ulation may not be valid for patients over 70 years Performed By: #### 4 1000, 30281, 44728, 02451 ####[facility] [place] [address], [facility] GFR/1.73 sq M.predicted among non-blacks MDRD (S/P/Bld) [Vol rate/Area] mL/min/{1.73_m2} Normal >60 The [facility] Comment on above: Order Comment: No: D o not add to previous draw Result Comment: Calc ulation may not be valid for patients over 70 years Performed By: #### 4 1000, 55970, 53813, 94180 ####[facility] [id number], [facility] Glucose [Mass/Vol] 108 mg/dL High 70-100 The [facility] Comment on above: Order Comment: No: D o not add to previous draw Performed By: #### 4 1000, 81321, 09766, 02459 ####[facility] [place] [address], [facility] Potassium [Moles/Vol] 3.7 mmol/L Normal 3.5-5.1 The [facility] Comment on above: Order Comment: No: D o not add to previous draw Performed By: #### 4 1000, 34162, 67406, 04155 ####[facility] [place] [address], [place] Protein [Mass/Vol] 6.6 g/dL Normal 6.0-8.3 The [facility] Comment on above: Order Comment: No: D o not add to previous draw Performed By: #### 4 1000, 53057, 31464, 61282 ####[facility] [place] [address], [facility] Sodium [Moles/Vol] 136 mmol/L Normal 136-145 The [facility] Comment on above: Order Comment: No: D o not add to previous draw Performed By: #### 4 1000, 54691, 02939, 25204 ####[facility] [place] [address], [facility] Urea nitrogen [Mass/Vol] 16 mg/dL Normal 7-25 The [facility] Comment on above: Order Comment: No: D o not add to previous draw Performed By: #### 4 1000, 02583, 50462, 83472 ####[facility] [place] [address], [facility] MAGNESIUM BLOODon 05-18-2021 Magnesium [Mass/Vol] 1.9 mg/dL Normal 1.9-2.7 The [facility] Comment on above: Order Comment: No: D o not add to previous draw Performed By: #### 4 1000, 24879, 95270, 35892 ####[facility] [place] [address], [facility] PHOSPHORUS BLOODon Phosphate [Mass/Vol] 4.2 mg/dL Normal 2.5-5.0 The [facility] Comment on above: Order Comment: No: D o not add to previous draw Performed By: #### 4 1000, 16686, 94438, 17782 ####[facility] [place] [address], [place] POC GLUCOSE LABon 05-18-2021 Glucose [Mass/Vol] 152 mg/dL High 70-100 [facility] Comment on above: Performed By: #### 8 5499 ####[facility] [place] [address], [place] Glucose [Mass/Vol] 140 mg/dL High 70-100 The [facility] Comment on above: Performed By: #### 8 8969 ####[facility] [facility] [address], [facility] Glucose [Mass/Vol] 202 mg/dL High 70-100 The [facility] Comment on above: Performed By: #### 8 5499 ####[facility] [facility] [address], [facility] Glucose [Mass/Vol] 121 mg/dL High 70-100 The [facility] Comment on above: Performed By: #### 8 5499 ####[facility] [facility] [address], [facility] PORTABLE CHEST 1 VIEWon 04-25 PORTABLE CHEST 1 VIEW Normal The [facility] Comment on above: Order Comment: EValu ate for Effusion VANCOMYCIN TIMEDon VANCOMYCIN TIMED 10.2 mcg/mL Normal The [facility] Comment on above: Performed By: #### 4 1000, 92478, 75885, 91104 ####[facility] [facility] [address], [facility] CBC W/DIFFon 05-17-2021 ABS IMM GRANS 0.0 10*3/uL Normal 0.0-0.2 The [facility] Comment on above: Order Comment: No: D o not add to previous draw Performed By: #### 5 0103 ####[facility] [facility] [address], [facility] ABS NEUTROPHILS 3.6 10*3/uL Normal 1.6-7.6 The [facility] Comment on above: Order Comment: No: D o not add to previous draw Performed By: #### 5 0103 ####[facility] [facility] [address], [facility] Basophils (Bld) [#/Vol] 0.1 10*3/uL Normal 0.0-0.2 The [facility] Comment on above: Order Comment: No: D o not add to previous draw Performed By: #### 5 0103 ####[facility] [facility] [place] [address], [facility] Basophils/100 WBC (Bld) 0.9 % Normal 0.0-1.0 The [facility] Comment on above: Order Comment: No: D o not add to previous draw Performed By: #### 5 0103 ####[facility] [facility] [place] [address], [facility] Eosinophils (Bld) [#/Vol] 0.1 10*3/uL Normal 0.0-0.5 [facility] Comment on above: Order Comment: No: D o not add to previous draw Performed By: #### 5 0103 ####[facility] [facility] [place] [address], [facility] Eosinophils/100 WBC (Bld) 0.9 % Normal 0.0-6.0 [facility] Comment on above: Order Comment: No: D o not add to previous draw Performed By: #### 5 0103 ####[facility] [facility].[address] Erythrocyte distribution width (RBC) [Ratio] 14.6 % Normal 11.5-15.0 [facility] Comment on above: Order Comment: No: D o not add to previous draw Performed By: #### 5 0103 ####[facility] [facility].[address] Hematocrit (Bld) [Volume fraction] 27.7 % Low 39.0-50.0 [facility] Comment on above: Order Comment: No: D o not add to previous draw Performed By: #### 5 0103 ####[facility] [place] [address], [facility] Hemoglobin (Bld) [Mass/Vol] 8.5 g/dL Low 13.0-17.0 [facility] Comment on above: Order Comment: No: D o not add to previous draw Performed By: #### 5 0103 ####[facility] IMMATURE GRANS 0.5 % Normal 0.0-1.0 The [facility] Comment on above: Order Comment: No: D o not add to previous draw Performed By: #### 5 0103 ####[facility] [place] [address] Lymphocytes (Bld) [#/Vol] 1.4 10*3/uL Normal 1.2-4.0 [facility] Comment on above: Order Comment: No: D o not add to previous draw Performed By: #### 5 0103 ####[facility] [place] [address] Lymphocytes/100 WBC (Bld) 23.3 % Normal 20.0-45.0 [facility] Comment on above: Order Comment: No: D o not add to previous draw Performed By: #### 5 0103 ####[address] MCH (RBC) [Entitic mass] 28.4 pg Normal 27.0-33.0 [facility] Comment on above: Order Comment: No: D o not add to previous draw Performed By: #### 5 0103 ####[facility] [place] [address] MCHC (RBC) [Mass/Vol] 30.7 g/dL Low 32.0-35.0 [facility] Comment on above: Order Comment: No: D o not add to previous draw Performed By: #### 5 0103 ####[facility] [place] [address] MCV (RBC) [Entitic vol] 92.6 fL Normal 82.0-98.0 [facility] Comment on above: Order Comment: No: D o not add to previous draw Performed By: #### 5 0103 ####[facility] [facility] [address], [facility] Monocytes (Bld) [#/Vol] 0.7 10*3/uL Normal 0.1-1.0 [facility] Comment on above: Order Comment: No: D o not add to previous draw Performed By: #### 5 0103 ####[facility] [facility] [address], [facility] MONOS 11.7 % Normal 5.0-12.0 [facility] Comment on above: Order Comment: No: D o not add to previous draw Performed By: #### 5 0103 ####[facility] [facility] [address], [facility] Neutrophils/100 WBC (Bld) 62.7 % Normal 40.0-72.0 [facility] Comment on above: Order Comment: No: D o not add to previous draw Performed By: #### 5 0103 ####[facility] [facility].[address] Nucleated RBC/100 WBC (Bld) [Ratio] 0 % Normal 0-0 [facility] Comment on above: Order Comment: No: D o not add to previous draw Performed By: #### 5 0103 ####[facility] [facility] [address], [facility] PLAT CNT 325 10*3/uL Normal 150-400 The [facility] Comment on above: Order Comment: No: D o not add to previous draw Performed By: #### 5 0103 ####[facility] [facility].[address] RBC (Bld) [#/Vol] 2.99 10*6/uL Low 4.20-5.70 The [facility] Comment on above: Order Comment: No: D o not add to previous draw Performed By: #### 5 0103 ####[facility] [place] [address], [facility] WBC (Bld) [#/Vol] 5.79 10*3/uL Normal 4.00-10.60 [facility] Comment on above: Order Comment: No: D o not add to previous draw Performed By: #### 5 0103 ####[facility] COMP METABOLIC PANELon 05-17 Albumin [Mass/Vol] 2.8 g/dL Low 3.5-5.7 [facility] Comment on above: Order Comment: No: D o not add to previous draw Performed By: #### 4 1000, 34985, 21872 ####[facility] [facility] [address], [facility] ALKALINE PHOSPH 55 IU/L Normal 34-104 [facility] Comment on above: Order Comment: No: D o not add to previous draw Performed By: #### 4 1000, 07274, 19709 ####[facility] [facility] ALT [Catalytic activity/Vol] 7 U/L Normal 7-52 [facility] Comment on above: Order Comment: No: D o not add to previous draw Performed By: #### 4 1000, 20923, 72359 ####[facility] [place] [address], [facility] AST [Catalytic activity/Vol] 11 U/L Low 13-39 [facility] Comment on above: Order Comment: No: D o not add to previous draw Performed By: #### 4 1000, 30294, 25473 ####[facility] [place] [address], [facility] Bilirubin [Mass/Vol] 0.6 mg/dL Normal 0.3-1.0 [facility] Comment on above: Order Comment: No: D o not add to previous draw Performed By: #### 4 1000, 64882, 42966 ####[facility] [id number], [facility] Calcium [Mass/Vol] 8.2 mg/dL Low 8.6-10.3 [facility] Comment on above: Order Comment: No: D o not add to previous draw Performed By: #### 4 1000, 84801, 75461 ####[facility] [place] [address], [place] Chloride [Moles/Vol] 102 mmol/L Normal 98-107 [facility] Comment on above: Order Comment: No: D o not add to previous draw Performed By: #### 4 1000, 61012, 35681 ####[facility] [place] [address], [place] CO2 [Moles/Vol] 31 mmol/L Normal 21-31 [facility] Comment on above: Order Comment: No: D o not add to previous draw Performed By: #### 4 1000, 17628, 98741 ####[facility] [place] [address], [facility] Creatinine [Mass/Vol] 1.19 mg/dL Normal 0.70-1.30 [facility] Comment on above: Order Comment: No: D o not add to previous draw Performed By: #### 4 1000, 29582, 13696 ####[facility] [place] [address], [place] eGFR- non- 59 ml/min/1.73sq m Abnormal >60 The [facility] Comment on above: Order Comment: No: D o not add to previous draw Result Comment: Calc ulation may not be valid for patients over 70 years Performed By: #### 4 1000, 62776, 69266 ####[facility] [place] [address], [place] GFR/1.73 sq M.predicted among blacks MDRD (S/P/Bld) [Vol rate/Area] mL/min/{1.73_m2} Normal >60 The [facility] Comment on above: Order Comment: No: D o not add to previous draw Result Comment: Calc ulation may not be valid for patients over 70 years Performed By: #### 4 1000, 49011, 84740 ####[facility] [place] [address], [place] Glucose [Mass/Vol] 99 mg/dL Normal 70-100 [facility] Comment on above: Order Comment: No: D o not add to previous draw Performed By: #### 4 1000, 82402, 03913 ####[facility] [place] [address], [place] Potassium [Moles/Vol] 3.7 mmol/L Normal 3.5-5.1 [facility] Comment on above: Order Comment: No: D o not add to previous draw Performed By: #### 4 1000, 82083, 52312 ####[facility] [place] [address], [place] Protein [Mass/Vol] 6.6 g/dL Normal 6.0-8.3 The [facility] Comment on above: Order Comment: No: D o not add to previous draw Performed By: #### 4 1000, 01950, 55473 ####[facility] [place] [address], [place] Sodium [Moles/Vol] 138 mmol/L Normal 136-145 The [facility] Comment on above: Order Comment: No: D o not add to previous draw Performed By: #### 4 1000, 67709, 16656 ####[facility] [place] [address], [place] Urea nitrogen [Mass/Vol] 16 mg/dL Normal 7-25 [facility] Comment on above: Order Comment: No: D o not add to previous draw Performed By: #### 4 1000, 85318, 88201 ####[facility] [place] [address], [place] MAGNESIUM BLOODon 05-17-2021 Magnesium [Mass/Vol] 2.0 mg/dL Normal 1.9-2.7 [facility] Comment on above: Order Comment: No: D o not add to previous draw Performed By: #### 4 1000, 78259, 90080 ####[facility] [place] [address], [place] PHOSPHORUS BLOODon Phosphate [Mass/Vol] 4.6 mg/dL Normal 2.5-5.0 [facility] Comment on above: Order Comment: No: D o not add to previous draw Performed By: #### 4 1000, 33407, 31878 ####[facility] [place] [address], [place] POC GLUCOSE LABon 05-17-2021 Glucose [Mass/Vol] 139 mg/dL High 70-100 The [facility] Comment on above: Performed By: #### 8 5499 ####[facility] [place] [address], [place] Glucose [Mass/Vol] 100 mg/dL Normal 70-100 [facility] Comment on above: Performed By: #### 8 5499 ####[facility] [place] [address], [place] Glucose [Mass/Vol] 122 mg/dL High 70-100 The [facility] Comment on above: Performed By: #### 8 5499 ####[facility] [place] [address], [place] Glucose [Mass/Vol] 107 mg/dL High 70-100 The [facility] Comment on above: Performed By: #### 8 5499 ####[facility] PORTABLE CHEST 1 VIEWon 04-25 PORTABLE CHEST 1 VIEW Normal The [facility] Comment on above: Order Comment: evalu ate for Atelectasis *ANAEROBIC CULTUREon 021 *ANAEROBIC CULTURE Clinical Report: (D) Specimen/Source: TISSUE/INTRAOP SPEC Collected: 05/16/2021 10:48 Status: Final Last Updated: 05/21/2021 08:50 (1) STERNAL TISSUE ISO (Final) No Anaerobes Isolated Day 5 Normal The [facility] Comment on above: Order Comment: BRANDT AL TISSUE Performed By: #### 3 0312 ####[facility] *ANAEROBIC CULTURE Clinical Report: (D) Specimen/Source: SWAB/INTRAOP SPEC Collected: 05/16/2021 10:45 Status: Final Last Updated: 05/21/2021 08:50 (1) STERNAL WOUND ISO (Final) No Anaerobes Isolated Day 5 Normal [facility] Comment on above: Order Comment: BRANDT AL WOUND Performed By: #### 3 0312 ####[facility] *TISSUE CULTUREon 05-16-2021 *TISSUE CULTURE Normal [facility] Comment on above: Order Comment: BRANDT AL TISSUE Performed By: #### 3 0338 ####[facility] [place], [place] [address] [place] [address] *WOUND CULTUREon 05-16-2021 *WOUND CULTURE Normal The [facility] Comment on above: Order Comment: BRANDT AL WOUND Performed By: #### 3 0343 ####[facility] [place], [place] [id number] [place] [address] APTTon 05-16-2021 aPTT Coag (Bld) [Time] 32.6 s Normal 25.0-35.0 [facility] Comment on above: Order Comment: No: [...] THIS PURPOSE. Performed By: #### 5 7307, 59843 ####[facility] [place] [address], [facility] BASIC METABOLIC PANELon 09-2020 Calcium [Mass/Vol] 8.5 mg/dL Low 8.6-10.3 [facility] Comment on above: Order Comment: No: D o not add to previous draw Performed By: #### 4 1000, 15890, 07233 ####[facility] [place] [address], [facility] Chloride [Moles/Vol] 101 mmol/L Normal 98-107 [facility] Comment on above: Order Comment: No: D o not add to previous draw Performed By: #### 4 1000, 48674, 79138 ####[facility] [facility] [place] [address], [facility] CO2 [Moles/Vol] 31 mmol/L Normal 21-31 [facility] Comment on above: Order Comment: No: D o not add to previous draw Performed By: #### 4 1000, 51220, 36872 ####[facility] [place] [address], [facility] Creatinine [Mass/Vol] 0.66 mg/dL Low 0.70-1.30 [facility] Comment on above: Order Comment: No: D o not add to previous draw Performed By: #### 4 1000, 61233, 62406 ####[facility] [place] [address], [facility] GFR/1.73 sq M.predicted among blacks MDRD (S/P/Bld) [Vol rate/Area] mL/min/{1.73_m2} Normal >60 [facility] Comment on above: Order Comment: No: D o not add to previous draw Result Comment: Calc ulation may not be valid for patients over 70 years Performed By: #### 4 1000, 40636, 39605 ####[facility] [place] [address], [facility] GFR/1.73 sq M.predicted among non-blacks MDRD (S/P/Bld) [Vol rate/Area] mL/min/{1.73_m2} Normal >60 [facility] Comment on above: Order Comment: No: D o not add to previous draw Result Comment: Calc ulation may not be valid for patients over 70 years Performed By: #### 4 1000, , 25206 ####[facility] [facility] [place] [address], [facility] Glucose [Mass/Vol] 117 mg/dL High 70-100 The [facility] Comment on above: Order Comment: No: D o not add to previous draw Performed By: #### 4 1000, , 93183 ####[facility] [facility] [address], [facility] Potassium [Moles/Vol] 4.1 mmol/L Normal 3.5-5.1 [facility] Comment on above: Order Comment: No: D o not add to previous draw Performed By: #### 4 1000, , 66861 ####[facility] [place] [address], [place] Sodium [Moles/Vol] 136 mmol/L Normal 136-145 [facility] Comment on above: Order Comment: No: D o not add to previous draw Performed By: #### 4 1000, , 25916 ####[facility] [place] [address], [place] Urea nitrogen [Mass/Vol] 11 mg/dL Normal 7-25 [facility] Comment on above: Order Comment: No: D o not add to previous draw Performed By: #### 4 1000, 16718, 68112 ####[facility] [facility].[address] CBC COMPLETE BLOOD COUNTon 0 05-16-2021 Erythrocyte distribution width (RBC) [Ratio] 14.5 % Normal 11.5-15.0 [facility] Comment on above: Order Comment: No: D o not add to previous draw Performed By: #### 5 0608 ####[facility] Hematocrit (Bld) [Volume fraction] 30.5 % Low 39.0-50.0 [facility] Comment on above: Order Comment: No: D o not add to previous draw Performed By: #### 5 0608 ####[facility]3000 [facility].[address] Hemoglobin (Bld) [Mass/Vol] 9.5 g/dL Low 13.0-17.0 [facility] Comment on above: Order Comment: No: D o not add to previous draw Performed By: #### 5 0608 ####[facility] MCH (RBC) [Entitic mass] 28.5 pg Normal 27.0-33.0 [facility] Comment on above: Order Comment: No: D o not add to previous draw Performed By: #### 5 0608 ####[facility]3000 [facility] [place] [address], [facility] MCHC (RBC) [Mass/Vol] 31.1 g/dL Low 32.0-35.0 [facility] Comment on above: Order Comment: No: D o not add to previous draw Performed By: #### 5 0608 ####[facility] MCV (RBC) [Entitic vol] 91.6 fL Normal 82.0-98.0 [facility] Comment on above: Order Comment: No: D o not add to previous draw Performed By: #### 5 0608 ####[facility] Nucleated RBC/100 WBC (Bld) [Ratio] 0 % Normal 0-0 [facility] Comment on above: Order Comment: No: D o not add to previous draw Performed By: #### 5 0608 ####[facility] PLAT CNT 353 10*3/uL Normal 150-400 [facility] Comment on above: Order Comment: No: D o not add to previous draw Performed By: #### 5 0608 ####[facility] RBC (Bld) [#/Vol] 3.33 10*6/uL Low 4.20-5.70 [facility] Comment on above: Order Comment: No: D o not add to previous draw Performed By: #### 5 0608 ####[facility] WBC (Bld) [#/Vol] 5.98 10*3/uL Normal 4.00-10.60 [facility] Comment on above: Order Comment: No: D o not add to previous draw Performed By: #### 5 0608 ####[facility] [place] [address] LACTATE BLOODon 05-16-2021 Lactate [Moles/Vol] 0.6 mmol/L Normal .5-2.2 [facility] Comment on above: Order Comment: No: D o not add to previous draw Performed By: #### 1 0054 ####[facility] [place] [address], [facility] Lactate [Moles/Vol] 0.8 mmol/L Normal .5-2.2 [facility] Comment on above: Order Comment: No: D o not add to previous draw Performed By: #### 1 0054 ####[facility] [id number], [facility] MAGNESIUM BLOODon 05-16-2021 Magnesium [Mass/Vol] 1.9 mg/dL Normal 1.9-2.7 [facility] Comment on above: Order Comment: No: D o not add to previous draw Performed By: #### 4 1000, 83132, 21373 ####[facility] [place] [address], [facility] OSMOLALITY BLOODon 1 Osmolality [Osmolality] 292 mosm/kg Normal 285-305 [facility] Comment on above: Order Comment: No: D o not add to previous draw Performed By: #### 3 9301, 23748 ####[facility] [place] [address], [facility] Osmolality [Osmolality] 297 mosm/kg Normal 285-305 [facility] Comment on above: Order Comment: No: D o not add to previous draw Performed By: #### 3 9301, 86112 ####[facility] [id number], [facility] PHOSPHORUS BLOODon 1 Phosphate [Mass/Vol] 4.3 mg/dL Normal 2.5-5.0 [facility] Comment on above: Order Comment: No: D o not add to previous draw Performed By: #### 4 1000, 15241, 62276 ####[facility] [id number], [place] POC GLUCOSE LABon 05-16-2021 Glucose [Mass/Vol] 121 mg/dL High 70-100 [facility] Comment on above: Performed By: #### 8 5499 ####[facility]3000 [facility] [place] [address], [facility] Glucose [Mass/Vol] 126 mg/dL High 70-100 [facility] Comment on above: Performed By: #### 8 5499 ####[facility] [facility] [id number], [facility] Glucose [Mass/Vol] 133 mg/dL High 70-100 The [facility] Comment on above: Performed By: #### 8 5499 ####[facility] [facility] [address], [facility] Glucose [Mass/Vol] 131 mg/dL High 70-100 [facility] Comment on above: Performed By: #### 8 5499 ####[facility] PORTABLE CHEST 1 VIEWon 04-25 PORTABLE CHEST 1 VIEW Normal [facility] Comment on above: Order Comment: Check NG Tube Position PORTABLE CHEST 1 VIEW Normal [facility] Comment on above: Order Comment: Evalu ate Atelectasis PROTHROMBIN TIMEon INR Coag (PPP) [Relative time] 1.15 {INR} Normal 0.91-1.16 [facility] Comment on above: Order Comment: No: [...] OF ACTION, CLINICALEFFECTIVENESS, AND OPTIMAL THERAPEUTIC RANGE. [id number];108:231S-246S. Performed By: #### 5 7307, 29291 ####[facility] PT Coag (PPP) [Time] 14.7 s Normal 12.3-14.8 [facility] Comment on above: Order Comment: No: D o not add to previous draw Result Comment: ALL RESULTS MUST BE INTERPRETED WITH RESPECT TO BLOOD DRAWING ARTIFACTOR DILUTION ERROR OF ANTICOAGULANT AT THE TIME OF SAMPLING. Performed By: #### 5 7307, 97470 ####[facility] TRIGLYCERIDES BLOODon 2020 Triglyceride [Mass/Vol] 95 mg/dL Normal 40-149 [facility] Comment on above: Order Comment: No: D o not add to previous draw Result Comment: TRIG LYCERIDE REFERENCE RANGE:20 YEARS AND OLDER CARDIOVASCULAR RISKLESS THAN 150 mg/dl LOW [id number] TO 199 mg/dl BORDERLINE [id number] mg/dl AND GREATER HIGH RISK Performed By: #### 3 9301, 24637 ####[place] [address] [facility].[address] Triglyceride [Mass/Vol] 98 mg/dL Normal 40-149 [facility] Comment on above: Order Comment: No: D o not add to previous draw Result Comment: TRIG LYCERIDE REFERENCE RANGE:20 YEARS AND OLDER CARDIOVASCULAR RISKLESS THAN 150 mg/dl LOW [id number] TO 199 mg/dl BORDERLINE [id number] mg/dl AND GREATER HIGH RISK Performed By: #### 3 9301, 64717 ####[facility]3000 [facility] [place] [address], [facility] *BLOOD CULTUREon 05-15-2021 *BLOOD CULTURE Clinical Report: (D) Specimen: BLOOD CULTURE Collected: 05/15/2021 11:35 Status: Final Last Updated: 05/20/2021 14:11 (1) Prior to antibiotic administration CULT RES (Final) No Growth Day 5 Normal [facility] Comment on above: Order Comment: Prior to antibiotic administration Performed By: #### 3 0313 ####[place] [address] [address] APTTon 05-15-2021 aPTT Coag (Bld) [Time] 30.4 s Normal 25.0-35.0 [facility] Comment on above: Result Comment: ALL [...] THIS PURPOSE. Performed By: #### 5 7307, [address]34 ####[place] [address] [address] ARTERIAL BLOOD GAS W/COOXon 05-15-2021 BASE EXCESS 2 mmol/L Normal -2-3 [facility] Comment on above: Order Comment: RESUL TS CHECKED AND CALLED. ACCURATELY READ BACK BY RADHIKA ED CHARGE. Performed By: #### 4 0055 ####[address] COHB 2.3 % High 0.0-1.5 [facility] Comment on above: Order Comment: RESUL TS CHECKED AND CALLED. ACCURATELY READ BACK BY RADHIKA ED CHARGE. Performed By: #### 4 0055 ####[place] [address] [address] DELIVERY SYSTEMS NC Normal [facility] Comment on above: Order Comment: RESUL TS CHECKED AND CALLED. ACCURATELY READ BACK BY RADHIKA ED CHARGE. Performed By: #### 4 0055 ####[facility]3000 [facility].[address] HCO3 (Bld) [Moles/Vol] 29 mmol/L High 21-28 [facility] Comment on above: Order Comment: RESUL TS CHECKED AND CALLED. ACCURATELY READ BACK BY RADHIKA ED CHARGE. Performed By: #### 4 0055 ####[facility]3000 [facility].[address] LPM 5.0 LPM Normal [facility] Comment on above: Order Comment: RESUL TS CHECKED AND CALLED. ACCURATELY READ BACK BY RADHIKA ED CHARGE. Performed By: #### 4 0055 ####[address] METHB 1.1 % Normal 0.0-1.5 [facility] Comment on above: Order Comment: RESUL TS CHECKED AND CALLED. ACCURATELY READ BACK BY RADHIKA ED CHARGE. Performed By: #### 4 0055 ####[facility]3000 [facility].[address] MODALITY NC Normal [facility] Comment on above: Order Comment: RESUL TS CHECKED AND CALLED. ACCURATELY READ BACK BY RADHIKA ED CHARGE. Performed By: #### 4 0055 ####[address] Oxygen (Bld) [Partial pressure] 83 mm[Hg] Normal 83-108 [facility] Comment on above: Order Comment: RESUL TS CHECKED AND CALLED. ACCURATELY READ BACK BY RADHIKA ED CHARGE. Performed By: #### 4 0055 ####[address] Oxygen saturation in Blood 94.8 % Normal 94.0-97.0 [facility] Comment on above: Order Comment: RESUL TS CHECKED AND CALLED. ACCURATELY READ BACK BY RADHIKA ED CHARGE. Performed By: #### 4 0055 ####[address] PCO2 58 mmHg Critically high 35-45 [facility] Comment on above: Order Comment: RESUL TS CHECKED AND CALLED. ACCURATELY READ BACK BY RADHIKA ED CHARGE. Performed By: #### 4 0055 ####[address] pH (Bld) 7.31 [pH] Low 7.35-7.45 [facility] Comment on above: Order Comment: RESUL TS CHECKED AND CALLED. ACCURATELY READ BACK BY RADHIKA ED CHARGE. Performed By: #### 4 0055 ####[address] THB 10.2 g/dL Low 12.0-16.3 [facility] Comment on above: Order Comment: RESUL TS CHECKED AND CALLED. ACCURATELY READ BACK BY RADHIKA ED CHARGE. Performed By: #### 4 0055 ####[address] BNP (B-TYPE NATRIURETIC PEPT MAX)on 05-15-2021 Natriuretic peptide B (Bld) [Mass/Vol] 136 pg/mL High 0-100 [facility] Comment on above: Order Comment: Yes: Add to Previous draw if able Result Comment: Give n the appropriate clinical setting a BNP result of >100 pg/mLindicates congestive heart failure. Performed By: #### 8 5123 ####[address] CBC W/DIFFon 05-15-2021 ABS IMM GRANS 0.0 10*3/uL Normal 0.0-0.2 [facility] Comment on above: Performed By: #### 5 0103 ####[address] ABS NEUTROPHILS 5.0 10*3/uL Normal 1.6-7.6 [facility] Comment on above: Performed By: #### 5 0103 ####[facility] [place] [address], [facility] Basophils (Bld) [#/Vol] 0.0 10*3/uL Normal 0.0-0.2 [facility] Comment on above: Performed By: #### 5 0103 ####[facility] [place] [address], [facility] Basophils/100 WBC (Bld) 0.6 % Normal 0.0-1.0 [facility] Comment on above: Performed By: #### 5 0103 ####[facility] [facility] [place] [address], [facility] Eosinophils (Bld) [#/Vol] 0.1 10*3/uL Normal 0.0-0.5 [facility] Comment on above: Performed By: #### 5 0103 ####[facility] [place] [address], [facility] Eosinophils/100 WBC (Bld) 0.7 % Normal 0.0-6.0 [facility] Comment on above: Performed By: #### 5 0103 ####[facility]3000 [facility].[address] Erythrocyte distribution width (RBC) [Ratio] 14.5 % Normal 11.5-15.0 [facility] Comment on above: Performed By: #### 5 0103 ####[facility] [facility] [place] [address], [facility] Hematocrit (Bld) [Volume fraction] 32.5 % Low 39.0-50.0 [facility] Comment on above: Performed By: #### 5 3 ####[facility] [place] [address], [facility] Hemoglobin (Bld) [Mass/Vol] 10.3 g/dL Low 13.0-17.0 [facility] Comment on above: Performed By: #### 5 0103 ####[facility] IMMATURE GRANS 0.6 % Normal 0.0-1.0 The [facility] Comment on above: Performed By: #### 5 0103 ####[facility] Lymphocytes (Bld) [#/Vol] 1.1 10*3/uL Low 1.2-4.0 [facility] Comment on above: Performed By: #### 5 0103 ####[address] Lymphocytes/100 WBC (Bld) 15.9 % Low 20.0-45.0 [facility] Comment on above: Performed By: #### 5 0103 ####[address] MCH (RBC) [Entitic mass] 28.8 pg Normal 27.0-33.0 [facility] Comment on above: Performed By: #### 5 0103 ####[place] [address] [address] MCHC (RBC) [Mass/Vol] 31.7 g/dL Low 32.0-35.0 [facility] Comment on above: Performed By: #### 5 0103 ####[facility] MCV (RBC) [Entitic vol] 90.8 fL Normal 82.0-98.0 [facility] Comment on above: Performed By: #### 5 3 ####[address] Monocytes (Bld) [#/Vol] 0.8 10*3/uL Normal 0.1-1.0 [facility] Comment on above: Performed By: #### 5 0103 ####[facility] [place] [address], [facility] MONOS 11.2 % Normal 5.0-12.0 [facility] Comment on above: Performed By: #### 5 0103 ####[facility] Neutrophils/100 WBC (Bld) 71.0 % Normal 40.0-72.0 [facility] Comment on above: Performed By: #### 5 0103 ####[facility] Nucleated RBC/100 WBC (Bld) [Ratio] 0 % Normal 0-0 [facility] Comment on above: Performed By: #### 5 0103 ####[facility] PLAT CNT 376 10*3/uL Normal 150-400 [facility] Comment on above: Performed By: #### 5 0103 ####[facility] RBC (Bld) [#/Vol] 3.58 10*6/uL Low 4.20-5.70 [facility] Comment on above: Performed By: #### 5 0103 ####[facility] WBC (Bld) [#/Vol] 7.03 10*3/uL Normal 4.00-10.60 [facility] Comment on above: Performed By: #### 5 3 ####[facility] COMP METABOLIC PANELon 05-15 Albumin [Mass/Vol] 3.2 g/dL Low 3.5-5.7 The [facility] Comment on above: Performed By: #### 4 1000, 65467, 06686, 78899 ####[facility] [place] [address], [facility] ALKALINE PHOSPH 84 IU/L Normal 34-104 [facility] Comment on above: Performed By: #### 4 1000, 33052, 77250, 34808 ####[facility] [place] [address], [facility] ALT [Catalytic activity/Vol] 11 U/L Normal 7-52 [facility] Comment on above: Performed By: #### 4 1000, 77888, 89167, 37229 ####[facility] [place] [address], [facility] AST [Catalytic activity/Vol] 12 U/L Low 13-39 [facility] Comment on above: Performed By: #### 4 1000, 38552, 36381, 02780 ####[facility] [place] [address], [facility] Bilirubin [Mass/Vol] 0.9 mg/dL Normal 0.3-1.0 [facility] Comment on above: Performed By: #### 4 1000, 55970, 16575, 41210 ####[facility] [id number], [place] Calcium [Mass/Vol] 8.3 mg/dL Low 8.6-10.3 The [facility] Comment on above: Performed By: #### 4 1000, 77673, 71898, 63048 ####[facility] [place] [address], [place] Chloride [Moles/Vol] 101 mmol/L Normal 98-107 [facility] Comment on above: Performed By: #### 4 1000, 52688, 73533, 79592 ####[facility] [place] [address], [place] CO2 [Moles/Vol] 30 mmol/L Normal 21-31 [facility] Comment on above: Performed By: #### 4 1000, 09409, 70722, 62557 ####[facility] [place] [address], [place] Creatinine [Mass/Vol] 0.92 mg/dL Normal 0.70-1.30 [facility] Comment on above: Performed By: #### 4 1000, 68061, 54656, 92011 ####[facility] [place] [address], [place] GFR/1.73 sq M.predicted among blacks MDRD (S/P/Bld) [Vol rate/Area] mL/min/{1.73_m2} Normal >60 [facility] Comment on above: Result Comment: Calc ulation may not be valid for patients over 70 years Performed By: #### 4 1000, 73830, 02439, 11378 ####[facility] [place] [address], [place] GFR/1.73 sq M.predicted among non-blacks MDRD (S/P/Bld) [Vol rate/Area] mL/min/{1.73_m2} Normal >60 [facility] Comment on above: Result Comment: Calc ulation may not be valid for patients over 70 years Performed By: #### 4 1000, 62810, 99637, 94642 ####[facility] [place] [address], [place] Glucose [Mass/Vol] 138 mg/dL High 70-100 [facility] Comment on above: Performed By: #### 4 1000, 07431, 13342, 25723 ####[facility] [place] [address], [place] Potassium [Moles/Vol] 4.1 mmol/L Normal 3.5-5.1 [facility] Comment on above: Performed By: #### 4 1000, 41300, 11630, 88416 ####[facility] [place] [address], [facility] Protein [Mass/Vol] 7.4 g/dL Normal 6.0-8.3 The [facility] Comment on above: Performed By: #### 4 1000, 32851, 73442, 75281 ####[facility] [place] [address], [place] Sodium [Moles/Vol] 136 mmol/L Normal 136-145 The [facility] Comment on above: Performed By: #### 4 1000, 40406, 15635, 54025 ####[facility] [place] [address], [place] Urea nitrogen [Mass/Vol] 8 mg/dL Normal 7-25 [facility] Comment on above: Performed By: #### 4 1000, 34755, 69618, 81751 ####[facility] [place] [address], [facility] LACTATE BLOODon 05-15-2021 Lactate [Moles/Vol] 0.7 mmol/L Normal .5-2.2 [facility] Comment on above: Order Comment: Repea t Lactate in 4 hours Performed By: #### 1 0054 ####[facility] [place] [address], [place] MAGNESIUM BLOODon 05-15-2021 Magnesium [Mass/Vol] 2.0 mg/dL Normal 1.9-2.7 [facility] Comment on above: Performed By: #### 4 1000, 84367, 56465, 85735 ####[facility] [place] [address], [place] PHOSPHORUS BLOODon Phosphate [Mass/Vol] 6.0 mg/dL High 2.5-5.0 [facility] Comment on above: Performed By: #### 4 1000, 59883, 17810, 52907 ####[facility] [facility].[address] POC GLUCOSE LABon 05-15-2021 Glucose [Mass/Vol] 225 mg/dL High 70-100 [facility] Comment on above: Performed By: #### 8 5499 ####[facility] [facility].[address] POC SARS COV2 ANTIGEN NEGATI VEon 05-15-2021 POC SARS COV2 ANTIGEN NEG Negative Normal NEGATIVE [facility] Comment on above: Result Comment: Nega [...] of clinicalsigns and symptoms consistent with COVID-19.The [employer] COVID-19 Ag Card is a lateral flow immunoassay intended forthe qualitative detection of nucleocapsid protein antigen [id number] in direct nasal swabs from individuals within [...] Certificate ofAccreditation. Performed By: #### 3 1977 ####[facility] [facility] [address], [facility] PORTABLE CHEST 1 VIEWon 04-25 PORTABLE CHEST 1 VIEW Normal [facility] Comment on above: Order Comment: Evalu ate for Infiltrates, hypoxia, infected sternotomy site PROTHROMBIN TIMEon INR Coag (PPP) [Relative time] 1.07 {INR} Normal 0.91-1.16 [facility] Comment on above: Result Comment: ACCC P RECOMMENDED INR FOR WARFARIN THERAPY CONDITION INRPROPHYLAXIS OF VENOUS THROMBOSIS 2-3(HIGH-RISK SURGERY)TREATMENT OF VENOUS THROMBOSIS 2-3TREATMENT OF PULMONARY EMBOLISM 2-3PREVENTION OF SYSTEMIC EMBOLISM: 2-3 ACUTE MYOCARDIAL INFARCTION TISSUE HEART VALVES VALVULAR HEART DISEASE ATRIAL FIBRILLATION RECURRENT SYSTEMIC EMBOLISMMECHANICAL HEART VALVE 2.5-3.5 FROM: ORAL ANTICOAGULANTS. MECHANISM OF ACTION, CLINICALEFFECTIVENESS, AND OPTIMAL THERAPEUTIC RANGE. [id number];108:231S-246S. Performed By: #### 5 7307, 96492 ####[facility] [facility] [address], [facility] PT Coag (PPP) [Time] 13.9 s Normal 12.3-14.8 [facility] Comment on above: Result Comment: ALL RESULTS MUST BE INTERPRETED WITH RESPECT TO BLOOD DRAWING ARTIFACTOR DILUTION ERROR OF ANTICOAGULANT AT THE TIME OF SAMPLING. Performed By: #### 5 7307, 77311 ####[facility] [facility] [place] [address], [facility] TROPONIN-Ion 05-15-2021 Troponin I.cardiac [Mass/Vol] 0.01 ng/mL Normal 0.00-0.04 [facility] Comment on above: Result Comment: REFE RENCE RANGES: 0.00 - 0.04 ng/ml NORMAL 0.05 - 0.50 ng/ml INDETERMINATE > 0.50 ng/ml CONSISTENT WITH AN M.I. Performed By: #### 4 1000, 04981, 55536, 10132 ####[facility] [facility] [place] [address], [facility] TYPE AND SCREENon 05-15-2021 ABO INTERPRETATION O Normal The [facility] Comment on above: Performed By: #### 6 2586 ####[facility] [facility] [address], [facility] RH INTERPRETATION Positive Normal The [facility] Comment on above: Performed By: #### 6 2586 ####[facility] [facility] [place] [address], [facility] POC GLUCOSE LABon 04-15-2021 Glucose [Mass/Vol] 143 mg/dL High 70-100 The [facility] Comment on above: Performed By: #### 8 5499 ####[facility] [facility] [place] [address], [facility] Glucose [Mass/Vol] 241 mg/dL High 70-100 The [facility] Comment on above: Performed By: #### 8 5499 ####[facility] [facility] [place] [address], [facility] Glucose [Mass/Vol] 121 mg/dL High 70-100 The [facility] Comment on above: Performed By: #### 8 5499 ####[facility] [facility] [place] [address], [facility] POC SARS COV2 ANTIGEN NEGATI VEon 04-15-2021 POC SARS COV2 ANTIGEN NEG Negative Normal NEGATIVE [facility] Comment on above: Result Comment: Nega [...] of clinicalsigns and symptoms consistent with COVID-19.The [employer] COVID-19 Ag Card is a lateral flow immunoassay intended forthe qualitative detection of nucleocapsid protein antigen [id number] in direct nasal swabs from individuals within [...] Certificate ofAccreditation. Performed By: #### 3 1977 ####[address] BASIC METABOLIC PANELon 08-2 Calcium [Mass/Vol] 8.7 mg/dL Normal 8.6-10.3 [facility] Comment on above: Order Comment: No: D o not add to previous draw Performed By: #### 0 0071, 07619 ####[place] [address] [facility] [place] [address], [facility] Chloride [Moles/Vol] 95 mmol/L Low 98-107 [facility] Comment on above: Order Comment: No: D o not add to previous draw Performed By: #### 0 0071, 40138 ####[place] [address] [facility] [place] [address], [facility] CO2 [Moles/Vol] 27 mmol/L Normal 21-31 [facility] Comment on above: Order Comment: No: D o not add to previous draw Performed By: #### 0 0071, 60189 ####[place] [address] [place] [address], [facility] Creatinine [Mass/Vol] 0.80 mg/dL Normal 0.70-1.30 [facility] Comment on above: Order Comment: No: D o not add to previous draw Performed By: #### 0 0071, 68052 ####[facility] [place] [address], [facility] GFR/1.73 sq M.predicted among blacks MDRD (S/P/Bld) [Vol rate/Area] mL/min/{1.73_m2} Normal >60 [facility] Comment on above: Order Comment: No: D o not add to previous draw Result Comment: Calc ulation may not be valid for patients over 70 years Performed By: #### 0 0071, 00512 ####[facility] [place] [address], [facility] GFR/1.73 sq M.predicted among non-blacks MDRD (S/P/Bld) [Vol rate/Area] mL/min/{1.73_m2} Normal >60 [facility] Comment on above: Order Comment: No: D o not add to previous draw Result Comment: Calc ulation may not be valid for patients over 70 years Performed By: #### 0 0071, 18331 ####[facility] [facility] [address], [facility] Glucose [Mass/Vol] 108 mg/dL High 70-100 [facility] Comment on above: Order Comment: No: D o not add to previous draw Performed By: #### 0 0071, 38263 ####[facility] [facility] [place] [address], [place] Potassium [Moles/Vol] 3.6 mmol/L Normal 3.5-5.1 [facility] Comment on above: Order Comment: No: D o not add to previous draw Performed By: #### 0 0071, 91475 ####[facility] [place] [address], [place] Sodium [Moles/Vol] 132 mmol/L Low 136-145 [facility] Comment on above: Order Comment: No: D o not add to previous draw Performed By: #### 0 0071, 68874 ####[facility] [facility].[address] Urea nitrogen [Mass/Vol] 38 mg/dL High 7-25 [facility] Comment on above: Order Comment: No: D o not add to previous draw Performed By: #### 0 0071, 92958 ####[facility] CBC COMPLETE BLOOD COUNTon 0 04-14-2021 Erythrocyte distribution width (RBC) [Ratio] 14.1 % Normal 11.5-15.0 [facility] Comment on above: Order Comment: No: D o not add to previous draw Performed By: #### 5 0608 ####[place] [address] Hematocrit (Bld) [Volume fraction] 33.5 % Low 39.0-50.0 [facility] Comment on above: Order Comment: No: D o not add to previous draw Performed By: #### 5 0608 ####[place] [address] Hemoglobin (Bld) [Mass/Vol] 11.3 g/dL Low 13.0-17.0 [facility] Comment on above: Order Comment: No: D o not add to previous draw Performed By: #### 5 0608 ####[facility] [facility] [place] [address], [facility] MCH (RBC) [Entitic mass] 30.2 pg Normal 27.0-33.0 [facility] Comment on above: Order Comment: No: D o not add to previous draw Performed By: #### 5 0608 ####[facility] [facility] [place] [address], [facility] MCHC (RBC) [Mass/Vol] 33.7 g/dL Normal 32.0-35.0 [facility] Comment on above: Order Comment: No: D o not add to previous draw Performed By: #### 5 0608 ####[facility] [facility] [place] [address], [facility] MCV (RBC) [Entitic vol] 89.6 fL Normal 82.0-98.0 [facility] Comment on above: Order Comment: No: D o not add to previous draw Performed By: #### 5 0608 ####[facility] [facility].[address] Nucleated RBC/100 WBC (Bld) [Ratio] 0 % Normal 0-0 [facility] Comment on above: Order Comment: No: D o not add to previous draw Performed By: #### 5 0608 ####[facility] [facility] [place] [address], [facility] PLAT CNT 314 10*3/uL Normal 150-400 [facility] Comment on above: Order Comment: No: D o not add to previous draw Performed By: #### 5 0608 ####[facility] [facility] [place] [address], [facility] RBC (Bld) [#/Vol] 3.74 10*6/uL Low 4.20-5.70 [facility] Comment on above: Order Comment: No: D o not add to previous draw Performed By: #### 5 0608 ####[facility] [facility] [place] [address], [facility] WBC (Bld) [#/Vol] 10.84 10*3/uL High 4.00-10.60 [facility] Comment on above: Order Comment: No: D o not add to previous draw Performed By: #### 5 0608 ####[facility] [facility] [place] [address], [facility] MAGNESIUM BLOODon 04-14-2021 Magnesium [Mass/Vol] 1.9 mg/dL Normal 1.9-2.7 [facility] Comment on above: Order Comment: No: D o not add to previous draw Performed By: #### 0 0071, 62328 ####[facility] [place] [address], [place] POC GLUCOSE LABon 04-14-2021 Glucose [Mass/Vol] 168 mg/dL High 70-100 [facility] Comment on above: Performed By: #### 8 5499 ####[facility] [place] [address], [place] Glucose [Mass/Vol] 133 mg/dL High 70-100 [facility] Comment on above: Performed By: #### 8 5499 ####[facility] [place] [address], [place] Glucose [Mass/Vol] 167 mg/dL High 70-100 [facility] Comment on above: Performed By: #### 8 5499 ####[facility] [place] [address], [place] Glucose [Mass/Vol] 146 mg/dL High 70-100 [facility] Comment on above: Performed By: #### 8 5499 ####[facility] [place] [address], [place] Glucose [Mass/Vol] 152 mg/dL High 70-100 [facility] Comment on above: Performed By: #### 8 5499 ####[facility] [place] [address], [place] PORTABLE CHEST 1 VIEWon 03-25 PORTABLE CHEST 1 VIEW Normal [facility] Comment on above: Order Comment: evalu ate Atelectasis BASIC METABOLIC PANELon 03-25 Calcium [Mass/Vol] 9.1 mg/dL Normal 8.6-10.3 [facility] Comment on above: Order Comment: No: D o not add to previous draw Performed By: #### 1 0, 32100 ####[facility] [place] [address], [facility] Chloride [Moles/Vol] 94 mmol/L Low 98-107 [facility] Comment on above: Order Comment: No: D o not add to previous draw Performed By: #### 1 0, 77778 ####[facility] [place] [address], [facility] CO2 [Moles/Vol] 27 mmol/L Normal 21-31 [facility] Comment on above: Order Comment: No: D o not add to previous draw Performed By: #### 1 69, 17741 ####[facility] [facility] [place] [address], [facility] Creatinine [Mass/Vol] 0.87 mg/dL Normal 0.70-1.30 [facility] Comment on above: Order Comment: No: D o not add to previous draw Performed By: #### 1 69, 55763 ####[facility] [facility] [place] [address], [facility] GFR/1.73 sq M.predicted among blacks MDRD (S/P/Bld) [Vol rate/Area] mL/min/{1.73_m2} Normal >60 [facility] Comment on above: Order Comment: No: D o not add to previous draw Result Comment: Calc ulation may not be valid for patients over 70 years Performed By: #### 1 69, 63386 ####[facility] [place] [address], [facility] GFR/1.73 sq M.predicted among non-blacks MDRD (S/P/Bld) [Vol rate/Area] mL/min/{1.73_m2} Normal >60 [facility] Comment on above: Order Comment: No: D o not add to previous draw Result Comment: Calc ulation may not be valid for patients over 70 years Performed By: #### 1 69, 44196 ####[facility] [facility] [place] [address], [facility] Glucose [Mass/Vol] 125 mg/dL High 70-100 [facility] Comment on above: Order Comment: No: D o not add to previous draw Performed By: #### 1 69, 65514 ####[facility] [place] [address], [facility] Potassium [Moles/Vol] 3.2 mmol/L Low 3.5-5.1 [facility] Comment on above: Order Comment: No: D o not add to previous draw Performed By: #### 1 69, 49313 ####[place] [address] [facility] [place] [address], [facility] Sodium [Moles/Vol] 132 mmol/L Low 136-145 [facility] Comment on above: Order Comment: No: D o not add to previous draw Performed By: #### 1 69, 37234 ####[place] [address] [facility] [place] [address], [facility] Urea nitrogen [Mass/Vol] 27 mg/dL High 7-25 [facility] Comment on above: Order Comment: No: D o not add to previous draw Performed By: #### 1 69, 70439 ####[facility] [facility].[address] CBC COMPLETE BLOOD COUNTon 0 8- Erythrocyte distribution width (RBC) [Ratio] 14.2 % Normal 11.5-15.0 [facility] Comment on above: Order Comment: No: D o not add to previous draw Performed By: #### 5 0608 ####[facility] [facility] [place] [address], [facility] Hematocrit (Bld) [Volume fraction] 35.2 % Low 39.0-50.0 [facility] Comment on above: Order Comment: No: D o not add to previous draw Performed By: #### 5 0608 ####[facility] [facility].[address] Hemoglobin (Bld) [Mass/Vol] 11.9 g/dL Low 13.0-17.0 [facility] Comment on above: Order Comment: No: D o not add to previous draw Performed By: #### 5 0608 ####[facility] [facility].[address] MCH (RBC) [Entitic mass] 30.6 pg Normal 27.0-33.0 [facility] Comment on above: Order Comment: No: D o not add to previous draw Performed By: #### 5 0608 ####[facility] [facility].[address] MCHC (RBC) [Mass/Vol] 33.8 g/dL Normal 32.0-35.0 [facility] Comment on above: Order Comment: No: D o not add to previous draw Performed By: #### 5 0608 ####[facility] [facility].[address] MCV (RBC) [Entitic vol] 90.5 fL Normal 82.0-98.0 [facility] Comment on above: Order Comment: No: D o not add to previous draw Performed By: #### 5 0608 ####[facility] [facility].[address] Nucleated RBC/100 WBC (Bld) [Ratio] 0 % Normal 0-0 [facility] Comment on above: Order Comment: No: D o not add to previous draw Performed By: #### 5 0608 ####[facility] [facility].[address] PLAT CNT 285 10*3/uL Normal 150-400 [facility] Comment on above: Order Comment: No: D o not add to previous draw Performed By: #### 5 0608 ####[facility] [place] [address], [facility] RBC (Bld) [#/Vol] 3.89 10*6/uL Low 4.20-5.70 [facility] Comment on above: Order Comment: No: D o not add to previous draw Performed By: #### 5 0608 ####[facility] [place] [address], [place] WBC (Bld) [#/Vol] 9.92 10*3/uL Normal 4.00-10.60 [facility] Comment on above: Order Comment: No: D o not add to previous draw Performed By: #### 5 0608 ####[facility] [facility] [place] [address], [facility] MAGNESIUM BLOODon 04-13-2021 Magnesium [Mass/Vol] 1.9 mg/dL Normal 1.9-2.7 [facility] Comment on above: Order Comment: No: D o not add to previous draw Performed By: #### 1 0070, 51889 ####[facility] [place] [address], [facility] POC GLUCOSE LABon 04-13-2021 Glucose [Mass/Vol] 106 mg/dL High 70-100 [facility] Comment on above: Performed By: #### 8 5499 ####[facility] [place] [address], [place] Glucose [Mass/Vol] 185 mg/dL High 70-100 [facility] Comment on above: Performed By: #### 8 5499 ####[facility] [place] [address], [place] Glucose [Mass/Vol] 136 mg/dL High 70-100 [facility] Comment on above: Performed By: #### 8 5499 ####[facility] [place] [address], [facility] PORTABLE CHEST 1 VIEWon 03-25 PORTABLE CHEST 1 VIEW Normal [facility] Comment on above: Order Comment: evalu ate for Atelectasis BASIC METABOLIC PANELon 03-25 Calcium [Mass/Vol] 8.3 mg/dL Low 8.6-10.3 [facility] Comment on above: Order Comment: No: D o not add to previous draw Performed By: #### 1 0, 25050 ####[facility] [facility] [place] [address], [facility] Chloride [Moles/Vol] 102 mmol/L Normal 98-107 [facility] Comment on above: Order Comment: No: D o not add to previous draw Performed By: #### 1 69, 80295 ####[facility] [place] [address], [facility] CO2 [Moles/Vol] 25 mmol/L Normal 21-31 [facility] Comment on above: Order Comment: No: D o not add to previous draw Performed By: #### 1 0, 36196 ####[facility] [place] [address], [facility] Creatinine [Mass/Vol] 0.67 mg/dL Low 0.70-1.30 [facility] Comment on above: Order Comment: No: D o not add to previous draw Performed By: #### 1 0, 15859 ####[facility] [place] [address], [facility] GFR/1.73 sq M.predicted among blacks MDRD (S/P/Bld) [Vol rate/Area] mL/min/{1.73_m2} Normal >60 [facility] Comment on above: Order Comment: No: D o not add to previous draw Result Comment: Calc ulation may not be valid for patients over 70 years Performed By: #### 1 69, 92861 ####[facility] [place] [address], [facility] GFR/1.73 sq M.predicted among non-blacks MDRD (S/P/Bld) [Vol rate/Area] mL/min/{1.73_m2} Normal >60 [facility] Comment on above: Order Comment: No: D o not add to previous draw Result Comment: Calc ulation may not be valid for patients over 70 years Performed By: #### 1 69, 93246 ####[facility] [facility] [place] [address], [facility] Glucose [Mass/Vol] 116 mg/dL High 70-100 [facility] Comment on above: Order Comment: No: D o not add to previous draw Performed By: #### 1 69, 86384 ####[facility] [facility] [place] [address], [place] Potassium [Moles/Vol] 4.0 mmol/L Normal 3.5-5.1 [facility] Comment on above: Order Comment: No: D o not add to previous draw Performed By: #### 1 69, 57654 ####[facility] [place] [address], [place] Sodium [Moles/Vol] 134 mmol/L Low 136-145 [facility] Comment on above: Order Comment: No: D o not add to previous draw Performed By: #### 1 69, 72497 ####[facility] [place] [address], [place] Urea nitrogen [Mass/Vol] 22 mg/dL Normal 7-25 [facility] Comment on above: Order Comment: No: D o not add to previous draw Performed By: #### 1 69, 64160 ####[facility] CBC COMPLETE BLOOD COUNTon 0 - Erythrocyte distribution width (RBC) [Ratio] 14.6 % Normal 11.5-15.0 [facility] Comment on above: Order Comment: No: D o not add to previous draw Performed By: #### 5 0608 ####[facility] Hematocrit (Bld) [Volume fraction] 33.1 % Low 39.0-50.0 [facility] Comment on above: Order Comment: No: D o not add to previous draw Performed By: #### 5 0608 ####[place] [address] Hemoglobin (Bld) [Mass/Vol] 10.6 g/dL Low 13.0-17.0 [facility] Comment on above: Order Comment: No: D o not add to previous draw Performed By: #### 5 0608 ####[facility] MCH (RBC) [Entitic mass] 30.0 pg Normal 27.0-33.0 [facility] Comment on above: Order Comment: No: D o not add to previous draw Performed By: #### 5 0608 ####[facility] MCHC (RBC) [Mass/Vol] 32.0 g/dL Normal 32.0-35.0 [facility] Comment on above: Order Comment: No: D o not add to previous draw Performed By: #### 5 0608 ####[facility] MCV (RBC) [Entitic vol] 93.8 fL Normal 82.0-98.0 [facility] Comment on above: Order Comment: No: D o not add to previous draw Performed By: #### 5 0608 ####[facility] [facility].[address] Nucleated RBC/100 WBC (Bld) [Ratio] 0 % Normal 0-0 [facility] Comment on above: Order Comment: No: D o not add to previous draw Performed By: #### 5 0608 ####[facility] [facility] [address], [facility] PLAT CNT 213 10*3/uL Normal 150-400 [facility] Comment on above: Order Comment: No: D o not add to previous draw Performed By: #### 5 0608 ####[place] [address] [facility].[address] RBC (Bld) [#/Vol] 3.53 10*6/uL Low 4.20-5.70 [facility] Comment on above: Order Comment: No: D o not add to previous draw Performed By: #### 5 0608 ####[facility] [facility].[address] WBC (Bld) [#/Vol] 7.64 10*3/uL Normal 4.00-10.60 [facility] Comment on above: Order Comment: No: D o not add to previous draw Performed By: #### 5 0608 ####[facility] [facility].[address] MAGNESIUM BLOODon 04-12-2021 Magnesium [Mass/Vol] 1.9 mg/dL Normal 1.9-2.7 [facility] Comment on above: Order Comment: No: D o not add to previous draw Performed By: #### 1 8390, 42224 ####[facility] [facility].[address] POC GLUCOSE LABon 04-12-2021 Glucose [Mass/Vol] 126 mg/dL High 70-100 [facility] Comment on above: Performed By: #### 8 5499 ####[facility] [facility] [place] [address], [facility] Glucose [Mass/Vol] 131 mg/dL High 70-100 [facility] Comment on above: Performed By: #### 8 5499 ####[facility] [facility] [place] [address], [facility] Glucose [Mass/Vol] 167 mg/dL High 70-100 [facility] Comment on above: Performed By: #### 8 5499 ####[facility] [facility] [place] [address], [facility] POC SARS COV2 ANTIGEN NEGATI VEon 04-12-2021 POC SARS COV2 ANTIGEN NEG Negative Normal NEGATIVE [facility] Comment on above: Result Comment: Nega [...] of clinicalsigns and symptoms consistent with COVID-19.The [employer] COVID-19 Ag Card is a lateral flow immunoassay intended forthe qualitative detection of nucleocapsid protein antigen [id number] in direct nasal swabs from individuals within [...] Certificate ofAccreditation. Performed By: #### 3 1977 ####[facility] [facility] [place] [address], [facility] POC SARS COV2 ANTIGEN NEG Negative Normal NEGATIVE [facility] Comment on above: Result Comment: Nega [...] of clinicalsigns and symptoms consistent with COVID-19.The [employer] COVID-19 Ag Card is a lateral flow immunoassay intended forthe qualitative detection of nucleocapsid protein antigen [id number] in direct nasal swabs from individuals within [...] Certificate ofAccreditation. Performed By: #### 3 1977 ####[facility] PORTABLE CHEST 1 VIEWon 03-25 PORTABLE CHEST 1 VIEW Normal [facility] Comment on above: Order Comment: evalu ate for Atelectasis BASIC METABOLIC PANELon 03-24 Calcium [Mass/Vol] 7.9 mg/dL Low 8.6-10.3 [facility] Comment on above: Order Comment: No: D o not add to previous draw Performed By: #### 4 999, 65939, 34220 ####[facility] [facility].[address] Chloride [Moles/Vol] 100 mmol/L Normal 98-107 [facility] Comment on above: Order Comment: No: D o not add to previous draw Performed By: #### 4 999, 09594, 00857 ####[facility] [place] [address], [facility] CO2 [Moles/Vol] 27 mmol/L Normal 21-31 [facility] Comment on above: Order Comment: No: D o not add to previous draw Performed By: #### 4 1000, 81067, 94831 ####[facility] [facility] [place] [address], [facility] Creatinine [Mass/Vol] 0.80 mg/dL Normal 0.70-1.30 [facility] Comment on above: Order Comment: No: D o not add to previous draw Performed By: #### 4 1000, 01339, 41534 ####[facility] [facility] [address], [facility] GFR/1.73 sq M.predicted among blacks MDRD (S/P/Bld) [Vol rate/Area] mL/min/{1.73_m2} Normal >60 [facility] Comment on above: Order Comment: No: D o not add to previous draw Result Comment: Calc ulation may not be valid for patients over 70 years Performed By: #### 4 999, 10652, 44459 ####[facility] [facility] [address], [facility] GFR/1.73 sq M.predicted among non-blacks MDRD (S/P/Bld) [Vol rate/Area] mL/min/{1.73_m2} Normal >60 [facility] [facility] Comment on above: Order Comment: No: D o not add to previous draw Result Comment: Calc ulation may not be valid for patients over 70 years Performed By: #### 4 1000, 33391, 94451 ####[facility] [place] [address], [facility] Glucose [Mass/Vol] 135 mg/dL High 70-100 [facility] Comment on above: Order Comment: No: D o not add to previous draw Performed By: #### 4 1000, 05729, 72061 ####[facility] [place] [address], [facility] Potassium [Moles/Vol] 3.4 mmol/L Low 3.5-5.1 [facility] Comment on above: Order Comment: No: D o not add to previous draw Performed By: #### 4 1000, 96710, 16666 ####[facility] [place] [address], [facility] Sodium [Moles/Vol] 134 mmol/L Low 136-145 [facility] Comment on above: Order Comment: No: D o not add to previous draw Performed By: #### 4 999, 81586, 31465 ####[facility] [place] [address], [facility] Urea nitrogen [Mass/Vol] 21 mg/dL Normal 7-25 [facility] Comment on above: Order Comment: No: D o not add to previous draw Performed By: #### 4 999, 57696, 86539 ####[facility] CBC COMPLETE BLOOD COUNTon 0 - Erythrocyte distribution width (RBC) [Ratio] 15.0 % Normal 11.5-15.0 [facility] Comment on above: Order Comment: No: D o not add to previous drawNurse draw Performed By: #### 5 0608 ####[facility] [place] [address], [facility] Hematocrit (Bld) [Volume fraction] 32.0 % Low 39.0-50.0 [facility] Comment on above: Order Comment: No: D o not add to previous drawNurse draw Performed By: #### 5 0608 ####[facility] [place] [address], [facility] Hemoglobin (Bld) [Mass/Vol] 10.6 g/dL Low 13.0-17.0 [facility] Comment on above: Order Comment: No: D o not add to previous drawNurse draw Performed By: #### 5 0608 ####[facility] [facility].[address] MCH (RBC) [Entitic mass] 30.5 pg Normal 27.0-33.0 [facility] Comment on above: Order Comment: No: D o not add to previous drawNurse draw Performed By: #### 5 0608 ####[facility] MCHC (RBC) [Mass/Vol] 33.1 g/dL Normal 32.0-35.0 [facility] Comment on above: Order Comment: No: D o not add to previous drawNurse draw Performed By: #### 5 0608 ####[address] MCV (RBC) [Entitic vol] 92.2 fL Normal 82.0-98.0 [facility] Comment on above: Order Comment: No: D o not add to previous drawNurse draw Performed By: #### 5 0608 ####[place] [address] [address] Nucleated RBC/100 WBC (Bld) [Ratio] 0 % Normal 0-0 [facility] Comment on above: Order Comment: No: D o not add to previous drawNurse draw Performed By: #### 5 0608 ####[address] PLAT CNT 182 10*3/uL Normal 150-400 [facility] Comment on above: Order Comment: No: D o not add to previous drawNurse draw Performed By: #### 5 0608 ####[address] RBC (Bld) [#/Vol] 3.47 10*6/uL Low 4.20-5.70 [facility] Comment on above: Order Comment: No: D o not add to previous drawNurse draw Performed By: #### 5 0608 ####[facility] [place] [address], [facility] WBC (Bld) [#/Vol] 9.87 10*3/uL Normal 4.00-10.60 [facility] Comment on above: Order Comment: No: D o not add to previous drawNurse draw Performed By: #### 5 0608 ####[facility] [place] [address], [facility] MAGNESIUM BLOODon 04-11-2021 Magnesium [Mass/Vol] 2.1 mg/dL Normal 1.9-2.7 [facility] Comment on above: Order Comment: No: D o not add to previous draw Performed By: #### 4 1000, 85880, 76878 ####[facility] [place] [address], [facility] PHOSPHORUS BLOODon Phosphate [Mass/Vol] 3.7 mg/dL Normal 2.5-5.0 [facility] Comment on above: Order Comment: No: D o not add to previous draw Performed By: #### 4 1000, 51386, 17500 ####[facility] [place] [address], [facility] POC GLUCOSE LABon 04-11-2021 Glucose [Mass/Vol] 137 mg/dL High 70-100 [facility] Comment on above: Performed By: #### 8 5499 ####[facility] [place] [address], [place] Glucose [Mass/Vol] 182 mg/dL High 70-100 [facility] Comment on above: Performed By: #### 8 5499 ####[facility] [place] [address], [place] Glucose [Mass/Vol] 171 mg/dL High 70-100 [facility] Comment on above: Performed By: #### 8 5499 ####[facility] [facility] [address], [facility] Glucose [Mass/Vol] 142 mg/dL High 70-100 [facility] Comment on above: Performed By: #### 8 5499 ####[facility] [facility] [address], [facility] PORTABLE CHEST 1 VIEWon 03-24 PORTABLE CHEST 1 VIEW Normal [facility] Comment on above: Order Comment: Evalu ate for Pneumothorax PORTABLE CHEST 1 VIEW Normal [facility] Comment on above: Order Comment: evalu ate for Pneumothorax BASIC METABOLIC PANELon 03-24 Calcium [Mass/Vol] 8.2 mg/dL Low 8.6-10.3 [facility] Comment on above: Order Comment: No: D o not add to previous drawNurse draw rn barbara Performed By: #### 4 999, 11630, 15234 ####[facility] [place] [address], [facility] Chloride [Moles/Vol] 104 mmol/L Normal 98-107 [facility] Comment on above: Order Comment: No: D o not add to previous drawNurse draw rn barbara Performed By: #### 4 999, 36697, 20689 ####[facility] [facility] [address], [facility] CO2 [Moles/Vol] 27 mmol/L Normal 21-31 [facility] Comment on above: Order Comment: No: D o not add to previous drawNurse draw rn barbara Performed By: #### 4 999, 69514, 61635 ####[facility] [facility] [address], [facility] Creatinine [Mass/Vol] 0.76 mg/dL Normal 0.70-1.30 [facility] Comment on above: Order Comment: No: D o not add to previous drawNurse draw rn barbara Performed By: #### 4 1000, 55668, 87824 ####[facility] [facility] [address], [facility] GFR/1.73 sq M.predicted among blacks MDRD (S/P/Bld) [Vol rate/Area] mL/min/{1.73_m2} Normal >60 [facility] Comment on above: Order Comment: No: D o not add to previous drawNurse draw rn barbara Result Comment: Calc ulation may not be valid for patients over 70 years Performed By: #### 4 1000, 11083, 44408 ####[facility] [facility].[place] [id number], [facility] GFR/1.73 sq M.predicted among non-blacks MDRD (S/P/Bld) [Vol rate/Area] mL/min/{1.73_m2} Normal >60 [facility] Comment on above: Order Comment: No: D o not add to previous drawNurse draw rn barbara Result Comment: Calc ulation may not be valid for patients over 70 years Performed By: #### 4 999, 26392, 28633 ####[facility] [facility] [address], [facility] Glucose [Mass/Vol] 109 mg/dL High 70-100 [facility] Comment on above: Order Comment: No: D o not add to previous drawNurse draw rn barbara Performed By: #### 4 1000, 48073, 09425 ####[facility] [facility] [place] [address], [place] Potassium [Moles/Vol] 4.0 mmol/L Normal 3.5-5.1 [facility] Comment on above: Order Comment: No: D o not add to previous drawNurse draw rn barbara Performed By: #### 4 1000, 18775, 01092 ####[facility] [facility] [id number], [place] Sodium [Moles/Vol] 135 mmol/L Low 136-145 [facility] Comment on above: Order Comment: No: D o not add to previous drawNurse draw rn barbara Performed By: #### 4 1000, 04211, 78812 ####[facility] Urea nitrogen [Mass/Vol] 15 mg/dL Normal 7-25 [facility] Comment on above: Order Comment: No: D o not add to previous drawNurse draw rn barbara Performed By: #### 4 1000, 22831, 29590 ####[facility] CBC COMPLETE BLOOD COUNTon 0 - Erythrocyte distribution width (RBC) [Ratio] 14.7 % Normal 11.5-15.0 [facility] Comment on above: Order Comment: No: D o not add to previous drawNurse draw rn barbara Performed By: #### 5 0608 ####[facility] Hematocrit (Bld) [Volume fraction] 32.7 % Low 39.0-50.0 [facility] Comment on above: Order Comment: No: D o not add to previous drawNurse draw rn barbara Performed By: #### 5 0608 ####[facility] Hemoglobin (Bld) [Mass/Vol] 10.7 g/dL Low 13.0-17.0 [facility] Comment on above: Order Comment: No: D o not add to previous drawNurse draw rn barbara Performed By: #### 5 0608 ####[facility] [facility].[address] MCH (RBC) [Entitic mass] 30.1 pg Normal 27.0-33.0 [facility] Comment on above: Order Comment: No: D o not add to previous drawNurse draw rn barbara Performed By: #### 5 0608 ####[facility] [facility].[address] MCHC (RBC) [Mass/Vol] 32.7 g/dL Normal 32.0-35.0 [facility] Comment on above: Order Comment: No: D o not add to previous drawNurse draw rn barbara Performed By: #### 5 0608 ####[facility] [facility].[address] MCV (RBC) [Entitic vol] 92.1 fL Normal 82.0-98.0 [facility] Comment on above: Order Comment: No: D o not add to previous drawNurse draw rn barbara Performed By: #### 5 0608 ####[facility] Nucleated RBC/100 WBC (Bld) [Ratio] 0 % Normal 0-0 [facility] Comment on above: Order Comment: No: D o not add to previous drawNurse draw rn barbara Performed By: #### 5 0608 ####[facility] PLAT CNT 176 10*3/uL Normal 150-400 [facility] Comment on above: Order Comment: No: D o not add to previous drawNurse draw rn barbara Performed By: #### 5 0608 ####[facility] [facility].[address] RBC (Bld) [#/Vol] 3.55 10*6/uL Low 4.20-5.70 [facility] Comment on above: Order Comment: No: D o not add to previous drawNurse draw rn barbara Performed By: #### 5 0608 ####[facility] [address].[address] WBC (Bld) [#/Vol] 12.43 10*3/uL High 4.00-10.60 [facility] Comment on above: Order Comment: No: D o not add to previous drawNurse draw rn barbara Performed By: #### 5 0608 ####[facility] [place] [address], [facility] COOXIMETRYon 04-10-2021 COHB 1 % Normal [facility] Comment on above: Performed By: #### 7 0207 ####[facility] METHB 0 % Normal [facility] Comment on above: Performed By: #### 7 0207 ####[facility] Oxygen saturation in Blood 68.2 % Normal 65.0-75.0 [facility] Comment on above: Performed By: #### 7 0207 ####[facility] [facility].[address] THB 13.1 g/dL Normal [facility] Comment on above: Performed By: #### 7 0207 ####[facility] [facility] [address], [facility] LACTATE BLOODon 04-10-2021 Lactate [Moles/Vol] 0.7 mmol/L Normal .5-2.2 [facility] Comment on above: Order Comment: No: D o not add to previous drawNurse draw rn barbara Performed By: #### 1 0054 ####[facility] [facility] [address], [facility] MAGNESIUM BLOODon 04-10-2021 Magnesium [Mass/Vol] 2.3 mg/dL Normal 1.9-2.7 [facility] Comment on above: Order Comment: No: D o not add to previous drawNurse draw rn barbara Performed By: #### 4 1000, 38929, 60611 ####[facility] [place] [address], [place] PHOSPHORUS BLOODon Phosphate [Mass/Vol] 3.9 mg/dL Normal 2.5-5.0 [facility] Comment on above: Order Comment: No: D o not add to previous drawNurse draw sumit [place] Performed By: #### 4 1000, 27711, 24389 ####[facility] [place] [address], [place] POC GLUCOSE LABon 04-10-2021 Glucose [Mass/Vol] 168 mg/dL High 70-100 [facility] Comment on above: Performed By: #### 8 5499 ####[facility] [place] [address], [place] Glucose [Mass/Vol] 131 mg/dL High 70-100 [facility] Comment on above: Performed By: #### 8 5499 ####[facility] [place] [address], [place] Glucose [Mass/Vol] 123 mg/dL High 70-100 [facility] Comment on above: Performed By: #### 8 5499 ####[facility] [place] [address], [place] Glucose [Mass/Vol] 170 mg/dL High 70-100 [facility] Comment on above: Performed By: #### 8 5499 ####[facility] [place] [address], [place] Glucose [Mass/Vol] 131 mg/dL High 70-100 [facility] Comment on above: Performed By: #### 8 5499 ####[facility] [place] [address], [place] Glucose [Mass/Vol] 123 mg/dL High 70-100 [facility] Comment on above: Performed By: #### 8 5499 ####[facility] [place] [address], [place] Glucose [Mass/Vol] 92 mg/dL Normal 70-100 [facility] Comment on above: Performed By: #### 8 5499 ####[facility] [place] [address], [place] Glucose [Mass/Vol] 99 mg/dL Normal 70-100 [facility] Comment on above: Performed By: #### 8 5499 ####[facility] [place] [address], [place] Glucose [Mass/Vol] 124 mg/dL High 70-100 [facility] Comment on above: Performed By: #### 8 5499 ####[facility] [place] [address], [place] Glucose [Mass/Vol] 141 mg/dL High 70-100 [facility] Comment on above: Performed By: #### 8 5499 ####[facility] [place] [address], [place] Glucose [Mass/Vol] 143 mg/dL High 70-100 [facility] Comment on above: Performed By: #### 8 5499 ####[facility] [place] [address], [place] PORTABLE CHEST 1 VIEWon 03-24 PORTABLE CHEST 1 VIEW Normal [facility] Comment on above: Order Comment: Check Chest Tube Position, s/p mediasteinal tube removal PORTABLE CHEST 1 VIEW Normal [facility] Comment on above: Order Comment: evalu ate for Atelectasis APTTon 04-09-2021 aPTT Coag (Bld) [Time] 28.6 s Normal 25.0-35.0 [facility] Comment on above: Order Comment: post [...] THIS PURPOSE. Performed By: #### 5 7307, 35366 ####[facility] ARTERIAL BLOOD GAS WITH ICAo n 04-09-2021 DELIVERY SYSTEMS NC Normal [facility] Comment on above: Performed By: #### 8 4511 ####[facility] [place] [address], [facility] IONIZED CALCIUM 1.15 mmol/L Normal 1.13-1.32 [facility] Comment on above: Performed By: #### 8 4511 ####[facility] [place] [address], [facility] LPM 4.0 LPM Normal [facility] Comment on above: Performed By: #### 8 4511 ####[facility] [facility] [place] [address], [facility] Oxygen (Bld) [Partial pressure] 63 mm[Hg] Low 83-108 [facility] Comment on above: Performed By: #### 8 4511 ####[facility] Oxygen saturation in Blood 94.2 % Normal 94.0-97.0 [facility] Comment on above: Performed By: #### 8 4511 ####[facility] [place] [address], [facility] BASE EXCESS 3 mmol/L Normal -2-3 [facility] Comment on above: Performed By: #### 8 4511 ####[facility], [place] [address] DELIVERY SYSTEMS MV Normal [facility] Comment on above: Performed By: #### 8 4511 ####[facility] [place] [address], [facility] FIO2 40 % Normal [facility] Comment on above: Performed By: #### 8 4511 ####[facility] [place] [address], [facility] HCO3 (Bld) [Moles/Vol] 27 mmol/L Normal 21-28 [facility] Comment on above: Performed By: #### 8 4511 ####[facility] IONIZED CALCIUM 1.17 mmol/L Normal 1.13-1.32 [facility] Comment on above: Performed By: #### 8 4511 ####[facility] [place] [address], [facility] MIN VOLUME 14.0 Normal [facility] Comment on above: Performed By: #### 8 4511 ####[facility] [place] [address], [facility] MODALITY SPONT Normal [facility] Comment on above: Performed By: #### 8 4511 ####[facility], [place] [address] [place] [address] Oxygen (Bld) [Partial pressure] 79 mm[Hg] Low 83-108 [facility] Comment on above: Performed By: #### 8 4511 ####[facility] [place] [address], [facility] Oxygen saturation in Blood 96.5 % Normal 94.0-97.0 [facility] Comment on above: Performed By: #### 8 4511 ####[facility] [place] [address], [facility] PCO2 37 mmHg Normal 35-45 [facility] Comment on above: Performed By: #### 8 4511 ####[facility] [place] [address], [facility] PEEP 5.0 CMH20 Normal [facility] Comment on above: Performed By: #### 8 4511 ####[facility] [place] [address], [facility] PF RATIO 198 mmHg Normal [facility] Comment on above: Performed By: #### 8 4511 ####[facility] [place] [address], [facility] pH (Bld) 7.47 [pH] High 7.35-7.45 [facility] Comment on above: Performed By: #### 8 4511 ####[facility] [place] [address], [facility] PRESSURE SUPPORT 5 Normal [facility] Comment on above: Performed By: #### 8 4511 ####[facility] [place] [address], [facility] BASE EXCESS 2 mmol/L Normal -2-3 [facility] Comment on above: Performed By: #### 8 4511 ####[facility] [place] [address], [facility] DELIVERY SYSTEMS MV Normal [facility] Comment on above: Performed By: #### 8 4511 ####[facility] [place] [address], [facility] FIO2 50 % Normal [facility] Comment on above: Performed By: #### 8 4511 ####[facility] [place] [address], [facility] HCO3 (Bld) [Moles/Vol] 26 mmol/L Normal 21-28 [facility] Comment on above: Performed By: #### 8 4511 ####[facility] [place] [address], [place] IONIZED CALCIUM 1.17 mmol/L Normal 1.13-1.32 [facility] Comment on above: Performed By: #### 8 4511 ####[facility] [place] [address], [place] MIN VOLUME 13.3 Normal [facility] Comment on above: Performed By: #### 8 4511 ####[facility] [place] [address], [place] MODALITY SIMV Normal [facility] Comment on above: Performed By: #### 8 4511 ####[facility] [place] [address], [place] Oxygen (Bld) [Partial pressure] 79 mm[Hg] Low 83-108 [facility] Comment on above: Performed By: #### 8 4511 ####[facility] [place] [address], [place] Oxygen saturation in Blood 96.8 % Normal 94.0-97.0 [facility] Comment on above: Performed By: #### 8 4511 ####[facility] [place] [address], [place] PCO2 36 mmHg Normal 35-45 [facility] Comment on above: Performed By: #### 8 4511 ####[facility] [place] [address], [place] PEEP 8.0 CMH20 Normal [facility] Comment on above: Performed By: #### 8 4511 ####[facility] [place] [address], [place] PF RATIO 158 mmHg Normal [facility] Comment on above: Performed By: #### 8 4511 ####[facility] pH (Bld) 7.46 [pH] High 7.35-7.45 [facility] Comment on above: Performed By: #### 8 4511 ####[facility] PRESSURE SUPPORT 10 Normal [facility] Comment on above: Performed By: #### 8 4511 ####[facility] [facility].[address] Respiratory rate 18 /min Normal [facility] Comment on above: Performed By: #### 8 4511 ####[facility] [facility].[address] TIDAL VOLUME (VT) CC 700 Normal [facility] Comment on above: Performed By: #### 8 4511 ####[facility] [facility].[address] BASE EXCESS -4 mmol/L Low -2-3 [facility] Comment on above: Performed By: #### 8 4511 ####[facility] [facility].[address] DELIVERY SYSTEMS MV Normal [facility] Comment on above: Performed By: #### 8 4511 ####[facility] [facility].[address] FIO2 80 % Normal [facility] Comment on above: Performed By: #### 8 4511 ####[facility] [facility] [facility].[address] HCO3 (Bld) [Moles/Vol] 20 mmol/L Low 21-28 [facility] Comment on above: Performed By: #### 8 4511 ####[facility] [facility].[address] IONIZED CALCIUM 1.14 mmol/L Normal 1.13-1.32 [facility] Comment on above: Performed By: #### 8 4511 ####[facility] [place] [address], [facility] MIN VOLUME 13.5 Normal [facility] Comment on above: Performed By: #### 8 4511 ####[facility] [place] [address], [facility] MODALITY SIMV Normal [facility] Comment on above: Performed By: #### 8 4511 ####[facility] [place] [address], [facility] Oxygen (Bld) [Partial pressure] 121 mm[Hg] Critically high 83-108 [facility] Comment on above: Performed By: #### 8 4511 ####[facility] [place] [address], [facility] Oxygen saturation in Blood 97.1 % High 94.0-97.0 [facility] Comment on above: Performed By: #### 8 4511 ####[facility] [place] [address], [facility] PCO2 34 mmHg Low 35-45 [facility] Comment on above: Performed By: #### 8 4511 ####[facility] [place] [address], [facility] PEEP 8.0 CMH20 Normal [facility] Comment on above: Performed By: #### 8 4511 ####[facility] [place] [address], [facility] pH (Bld) 7.38 [pH] Normal 7.35-7.45 [facility] Comment on above: Performed By: #### 8 4511 ####[facility] [place] [address], [facility] PRESSURE SUPPORT 10 Normal [facility] Comment on above: Performed By: #### 8 4511 ####[facility] [place] [address], [facility] Respiratory rate 18 /min Normal [facility] Comment on above: Performed By: #### 8 4511 ####[facility] [place] [address], [facility] TIDAL VOLUME (VT) CC 700 Normal [facility] Comment on above: Performed By: #### 8 4511 ####[facility] [place] [address], [facility] BASE EXCESS -8 mmol/L Low -2-3 [facility] Comment on above: Performed By: #### 8 4511 ####[facility] [place] [address], [facility] DELIVERY SYSTEMS MV Normal [facility] Comment on above: Performed By: #### 8 4511 ####[facility] [place] [address], [facility] FIO2 80 % Normal [facility] Comment on above: Performed By: #### 8 4511 ####[facility] [place] [address], [facility] HCO3 (Bld) [Moles/Vol] 18 mmol/L Low 21-28 [facility] Comment on above: Performed By: #### 8 4511 ####[facility] [place] [address], [facility] IONIZED CALCIUM 1.06 mmol/L Low 1.13-1.32 [facility] Comment on above: Performed By: #### 8 4511 ####[facility] [place] [address], [facility] MIN VOLUME 16.6 Normal [facility] Comment on above: Performed By: #### 8 4511 ####[facility] [place] [address], [place] MODALITY SIMV Normal [facility] Comment on above: Performed By: #### 8 4511 ####[facility] [place] [address], [place] Oxygen (Bld) [Partial pressure] 86 mm[Hg] Normal 83-108 [facility] Comment on above: Performed By: #### 8 4511 ####[facility] [place] [address], [place] Oxygen saturation in Blood 96.6 % Normal 94.0-97.0 [facility] Comment on above: Performed By: #### 8 4511 ####[facility] [place] [address], [place] PCO2 34 mmHg Low 35-45 [facility] Comment on above: Performed By: #### 8 4511 ####[facility] [place] [address], [place] PEEP 8.0 CMH20 Normal [facility] Comment on above: Performed By: #### 8 4511 ####[facility] [place] [address], [place] PF RATIO 108 mmHg Normal [facility] Comment on above: Performed By: #### 8 4511 ####[facility] [place] [address], [place] pH (Bld) 7.32 [pH] Low 7.35-7.45 [facility] Comment on above: Performed By: #### 8 4511 ####[facility] [place] [address], [place] PRESSURE SUPPORT 10 Normal [facility] Comment on above: Performed By: #### 8 4511 ####[facility] [place] [address], [facility] Respiratory rate 18 /min Normal [facility] Comment on above: Performed By: #### 8 4511 ####[facility] [facility] [place] [address], [facility] TIDAL VOLUME (VT) CC 700 Normal [facility] Comment on above: Performed By: #### 8 4511 ####[facility] [facility].[address] BASIC METABOLIC PANELon 08-1 Calcium [Mass/Vol] 8.0 mg/dL Low 8.6-10.3 [facility] Comment on above: Order Comment: No: D o not add to previous draw Performed By: #### 0 0071, 77469 ####[place] [address] [facility] [place] [address], [facility] Chloride [Moles/Vol] 107 mmol/L Normal 98-107 [facility] Comment on above: Order Comment: No: D o not add to previous draw Performed By: #### 0 0071, 40338 ####[place] [address] [facility] [address], [facility] CO2 [Moles/Vol] 26 mmol/L Normal 21-31 [facility] Comment on above: Order Comment: No: D o not add to previous draw Performed By: #### 0 0071, 37659 ####[facility] [facility] [place] [address], [facility] Creatinine [Mass/Vol] 0.90 mg/dL Normal 0.70-1.30 [facility] Comment on above: Order Comment: No: D o not add to previous draw Performed By: #### 0 0071, 98810 ####[place] [address] [place] [address], [facility] GFR/1.73 sq M.predicted among blacks MDRD (S/P/Bld) [Vol rate/Area] mL/min/{1.73_m2} Normal >60 [facility] Comment on above: Order Comment: No: D o not add to previous draw Result Comment: Calc ulation may not be valid for patients over 70 years Performed By: #### 0 0071, 87679 ####[facility] [place] [address], [place] GFR/1.73 sq M.predicted among non-blacks MDRD (S/P/Bld) [Vol rate/Area] mL/min/{1.73_m2} Normal >60 [facility] Comment on above: Order Comment: No: D o not add to previous draw Result Comment: Calc ulation may not be valid for patients over 70 years Performed By: #### 0 0071, 36519 ####[facility] [place] [address], [place] Glucose [Mass/Vol] 126 mg/dL High 70-100 [facility] Comment on above: Order Comment: No: D o not add to previous draw Performed By: #### 0 0071, 05933 ####[facility] [place] [address], [place] Potassium [Moles/Vol] 3.8 mmol/L Normal 3.5-5.1 [facility] Comment on above: Order Comment: No: D o not add to previous draw Performed By: #### 0 0071, 95774 ####[facility] [place] [address], [place] Sodium [Moles/Vol] 136 mmol/L Normal 136-145 [facility] Comment on above: Order Comment: No: D o not add to previous draw Performed By: #### 0 0071, 25499 ####[facility] [place] [address], [place] Urea nitrogen [Mass/Vol] 21 mg/dL Normal 7-25 [facility] Comment on above: Order Comment: No: D o not add to previous draw Performed By: #### 0 0071, 25703 ####[facility] [place] [address], [facility] Calcium [Mass/Vol] 7.8 mg/dL Low 8.6-10.3 [facility] Comment on above: Order Comment: post op day 1No: Do not add to previous draw Performed By: #### 1 69, 64618 ####[facility] [place] [address], [place] Chloride [Moles/Vol] 103 mmol/L Normal 98-107 [facility] Comment on above: Order Comment: post op day 1No: Do not add to previous draw Performed By: #### 1 69, 98423 ####[facility] [id number], [place] CO2 [Moles/Vol] 20 mmol/L Low 21-31 [facility] Comment on above: Order Comment: post op day 1No: Do not add to previous draw Performed By: #### 1 69, 75457 ####[facility] [place] [address], [place] Creatinine [Mass/Vol] 1.25 mg/dL Normal 0.70-1.30 [facility] Comment on above: Order Comment: post op day 1No: Do not add to previous draw Performed By: #### 1 69, 51062 ####[facility] [id number], [place] eGFR- non- 56 ml/min/1.73sq m Abnormal >60 [facility] Comment on above: Order Comment: post op day 1No: Do not add to previous draw Result Comment: Calc ulation may not be valid for patients over 70 years Performed By: #### 1 69, 52428 ####[facility] [place] [address], [facility] GFR/1.73 sq M.predicted among blacks MDRD (S/P/Bld) [Vol rate/Area] mL/min/{1.73_m2} Normal >60 [facility] Comment on above: Order Comment: post op day 1No: Do not add to previous draw Result Comment: Calc ulation may not be valid for patients over 70 years Performed By: #### 1 0, 85047 ####[facility] [facility] [address], [facility] Glucose [Mass/Vol] 331 mg/dL High 70-100 [facility] Comment on above: Order Comment: post op day 1No: Do not add to previous draw Performed By: #### 1 69, 64698 ####[facility] [facility] [address], [facility] Potassium [Moles/Vol] 3.2 mmol/L Low 3.5-5.1 [facility] Comment on above: Order Comment: post op day 1No: Do not add to previous draw Performed By: #### 1 69, 55609 ####[facility] [facility] [address], [facility] Sodium [Moles/Vol] 135 mmol/L Low 136-145 [facility] Comment on above: Order Comment: post op day 1No: Do not add to previous draw Performed By: #### 1 69, 11560 ####[facility] [facility] [place] [address], [facility] Urea nitrogen [Mass/Vol] 24 mg/dL Normal 7-25 [facility] Comment on above: Order Comment: post op day 1No: Do not add to previous draw Performed By: #### 1 69, 88349 ####[facility] [facility] [place] [address], [facility] CBC COMPLETE BLOOD COUNTon 0 - Erythrocyte distribution width (RBC) [Ratio] 14.6 % Normal 11.5-15.0 [facility] Comment on above: Order Comment: post op day 1No: Do not add to previous draw Performed By: #### 5 0608 ####[facility] [facility].[address] Hematocrit (Bld) [Volume fraction] 30.5 % Low 39.0-50.0 [facility] Comment on above: Order Comment: post op day 1No: Do not add to previous draw Performed By: #### 5 0608 ####[facility] Hemoglobin (Bld) [Mass/Vol] 10.2 g/dL Low 13.0-17.0 [facility] Comment on above: Order Comment: post op day 1No: Do not add to previous draw Performed By: #### 5 0608 ####[facility] [facility].[address] MCH (RBC) [Entitic mass] 30.9 pg Normal 27.0-33.0 [facility] Comment on above: Order Comment: post op day 1No: Do not add to previous draw Performed By: #### 5 0608 ####[facility] [facility].[address] MCHC (RBC) [Mass/Vol] 33.4 g/dL Normal 32.0-35.0 [facility] Comment on above: Order Comment: post op day 1No: Do not add to previous draw Performed By: #### 5 0608 ####[facility] [facility] [address], [facility] MCV (RBC) [Entitic vol] 92.4 fL Normal 82.0-98.0 [facility] Comment on above: Order Comment: post op day 1No: Do not add to previous draw Performed By: #### 5 0608 ####[facility] Nucleated RBC/100 WBC (Bld) [Ratio] 0 % Normal 0-0 [facility] Comment on above: Order Comment: post op day 1No: Do not add to previous draw Performed By: #### 5 0608 ####[facility] [place] [address], [facility] PLAT CNT 232 10*3/uL Normal 150-400 [facility] Comment on above: Order Comment: post op day 1No: Do not add to previous draw Performed By: #### 5 0608 ####[facility] [place] [address], [facility] RBC (Bld) [#/Vol] 3.30 10*6/uL Low 4.20-5.70 [facility] Comment on above: Order Comment: post op day 1No: Do not add to previous draw Performed By: #### 5 0608 ####[facility] [place] [address], [facility] WBC (Bld) [#/Vol] 17.37 10*3/uL High 4.00-10.60 [facility] Comment on above: Order Comment: post op day 1No: Do not add to previous draw Performed By: #### 5 0608 ####[facility] [place] [address], [facility] CBC W/DIFFon 04-09-2021 ABS IMM GRANS 0.1 10*3/uL Normal 0.0-0.2 [facility] Comment on above: Order Comment: No: D o not add to previous draw Performed By: #### 5 0103 ####[facility] [place] [address], [facility] ABS NEUTROPHILS 8.3 10*3/uL High 1.6-7.6 [facility] Comment on above: Order Comment: No: D o not add to previous draw Performed By: #### 5 0103 ####[facility] [facility] [address], [facility] Basophils (Bld) [#/Vol] 0.0 10*3/uL Normal 0.0-0.2 [facility] Comment on above: Order Comment: No: D o not add to previous draw Performed By: #### 5 0103 ####[facility] [facility] [place] [address], [facility] Basophils/100 WBC (Bld) 0.1 % Normal 0.0-1.0 [facility] Comment on above: Order Comment: No: D o not add to previous draw Performed By: #### 5 0103 ####[facility] [place] [address], [facility] Eosinophils (Bld) [#/Vol] 0.0 10*3/uL Normal 0.0-0.5 [facility] Comment on above: Order Comment: No: D o not add to previous draw Performed By: #### 5 0103 ####[facility] [place] [address], [facility] Eosinophils/100 WBC (Bld) 0.0 % Normal 0.0-6.0 [facility] Comment on above: Order Comment: No: D o not add to previous draw Performed By: #### 5 0103 ####[facility] Erythrocyte distribution width (RBC) [Ratio] 14.4 % Normal 11.5-15.0 [facility] Comment on above: Order Comment: No: D o not add to previous draw Performed By: #### 5 0103 ####[place] [address] [place] [address], [facility] Hematocrit (Bld) [Volume fraction] 28.9 % Low 39.0-50.0 [facility] Comment on above: Order Comment: No: D o not add to previous draw Performed By: #### 5 0103 ####[facility] [facility].[address] Hemoglobin (Bld) [Mass/Vol] 9.6 g/dL Low 13.0-17.0 [facility] Comment on above: Order Comment: No: D o not add to previous draw Performed By: #### 5 0103 ####[facility] IMMATURE GRANS 0.5 % Normal 0.0-1.0 [facility] Comment on above: Order Comment: No: D o not add to previous draw Performed By: #### 5 0103 ####[facility] [place] [address] Lymphocytes (Bld) [#/Vol] 1.3 10*3/uL Normal 1.2-4.0 [facility] Comment on above: Order Comment: No: D o not add to previous draw Performed By: #### 5 0103 ####[facility] Lymphocytes/100 WBC (Bld) 12.1 % Low 20.0-45.0 [facility] Comment on above: Order Comment: No: D o not add to previous draw Performed By: #### 5 0103 ####[facility] [facility].[address] MCH (RBC) [Entitic mass] 30.6 pg Normal 27.0-33.0 [facility] Comment on above: Order Comment: No: D o not add to previous draw Performed By: #### 5 0103 ####[facility] [place] [address] MCHC (RBC) [Mass/Vol] 33.2 g/dL Normal 32.0-35.0 [facility] Comment on above: Order Comment: No: D o not add to previous draw Performed By: #### 5 0103 ####[facility] [facility].[address] MCV (RBC) [Entitic vol] 92.0 fL Normal 82.0-98.0 [facility] Comment on above: Order Comment: No: D o not add to previous draw Performed By: #### 5 0103 ####[facility] [facility] [address], [facility] Monocytes (Bld) [#/Vol] 1.2 10*3/uL High 0.1-1.0 [facility] Comment on above: Order Comment: No: D o not add to previous draw Performed By: #### 5 0103 ####[facility] MONOS 10.9 % Normal 5.0-12.0 [facility] Comment on above: Order Comment: No: D o not add to previous draw Performed By: #### 5 3 ####[facility] [facility].[address] Neutrophils/100 WBC (Bld) 76.4 % High 40.0-72.0 [facility] Comment on above: Order Comment: No: D o not add to previous draw Performed By: #### 5 3 ####[facility] [facility].[address] Nucleated RBC/100 WBC (Bld) [Ratio] 0 % Normal 0-0 [facility] Comment on above: Order Comment: No: D o not add to previous draw Performed By: #### 5 3 ####[facility] [facility] [address], [facility] PLAT CNT 175 10*3/uL Normal 150-400 [facility] Comment on above: Order Comment: No: D o not add to previous draw Performed By: #### 5 3 ####[facility] [place] [address], [place] RBC (Bld) [#/Vol] 3.14 10*6/uL Low 4.20-5.70 [facility] Comment on above: Order Comment: No: D o not add to previous draw Performed By: #### 5 0103 ####[facility] [place] [address], [place] WBC (Bld) [#/Vol] 10.92 10*3/uL High 4.00-10.60 [facility] Comment on above: Order Comment: No: D o not add to previous draw Performed By: #### 5 0103 ####[facility] [place] [address], [facility] LACTATE BLOODon 04-09-2021 Lactate [Moles/Vol] 0.9 mmol/L Normal .5-2.2 [facility] Comment on above: Order Comment: No: D o not add to previous draw Performed By: #### 1 0054 ####[facility] [facility] [place] [address], [facility] Lactate [Moles/Vol] 3.8 mmol/L High .5-2.2 [facility] Comment on above: Order Comment: No: D o not add to previous draw Result Comment: M-CR ITICAL RESULT(S) REVIEWED, CALLED TO AND READ BACK BY [employer] DRIVER 0855 Performed By: #### 1 0054 ####[facility] [place] [address], [place] Lactate [Moles/Vol] 7.1 mmol/L Critically high .5-2.2 [facility] Comment on above: Order Comment: post op day 1No: Do not add to previous draw Result Comment: M-GA EVIOUS CRITICAL RESULT Performed By: #### 1 0054 ####[facility] [place] [address], [place] MAGNESIUM BLOODon 04-09-2021 Magnesium [Mass/Vol] 2.3 mg/dL Normal 1.9-2.7 [facility] Comment on above: Order Comment: No: D o not add to previous draw Performed By: #### 1 0070, 13768 ####[facility] [place] [address], [place] Magnesium [Mass/Vol] 2.2 mg/dL Normal 1.9-2.7 [facility] Comment on above: Order Comment: added from prior Performed By: #### 0 0071, 86624 ####[facility] [place] [address], [place] Magnesium [Mass/Vol] 2.4 mg/dL Normal 1.9-2.7 [facility] Comment on above: Order Comment: post op day 1No: Do not add to previous draw Performed By: #### 1 0070, 28896 ####[facility] [place] [address], [place] Operative Reporton Operative Report Normal [facility] POC GLUCOSE LABon 04-09-2021 Glucose [Mass/Vol] 162 mg/dL High 70-100 [facility] Comment on above: Performed By: #### 8 5499 ####[facility] [place] [address], [place] Glucose [Mass/Vol] 128 mg/dL High 70-100 [facility] Comment on above: Performed By: #### 8 5499 ####[facility] [place] [address], [place] Glucose [Mass/Vol] 117 mg/dL High 70-100 [facility] Comment on above: Performed By: #### 8 5499 ####[facility] [place] [address], [place] Glucose [Mass/Vol] 110 mg/dL High 70-100 [facility] Comment on above: Performed By: #### 8 5499 ####[facility] [place] [address], [place] Glucose [Mass/Vol] 65 mg/dL Low 70-100 [facility] Comment on above: Performed By: #### 8 5499 ####[facility] [place] [address], [place] Glucose [Mass/Vol] 86 mg/dL Normal 70-100 [facility] Comment on above: Performed By: #### 8 5499 ####[facility] [place] [address], [place] Glucose [Mass/Vol] 127 mg/dL High 70-100 [facility] Comment on above: Performed By: #### 8 5499 ####[facility] [place] [address], [place] Glucose [Mass/Vol] 230 mg/dL High 70-100 [facility] Comment on above: Performed By: #### 8 5499 ####[facility] [place] [address], [place] Glucose [Mass/Vol] 244 mg/dL High 70-100 [facility] Comment on above: Performed By: #### 8 5499 ####[facility] [place] [address], [place] Glucose [Mass/Vol] 283 mg/dL High 70-100 [facility] [facility] Comment on above: Performed By: #### 8 5499 ####[facility] [place] [address], [place] Glucose [Mass/Vol] 326 mg/dL High 70-100 [facility] Comment on above: Performed By: #### 8 5499 ####[facility] [place] [address], [place] Glucose [Mass/Vol] 347 mg/dL High 70-100 [facility] Comment on above: Performed By: #### 8 5499 ####[facility] [place] [address], [place] Glucose [Mass/Vol] 258 mg/dL High 70-100 [facility] Comment on above: Performed By: #### 8 5499 ####[facility] [place] [address], [place] Glucose [Mass/Vol] 334 mg/dL High 70-100 [facility] Comment on above: Performed By: #### 8 5499 ####[facility] [place] [address], [place] Glucose [Mass/Vol] 338 mg/dL High 70-100 [facility] Comment on above: Performed By: #### 8 5499 ####[facility] [place] [address], [place] Glucose [Mass/Vol] 321 mg/dL High 70-100 [facility] Comment on above: Performed By: #### 8 5499 ####[facility] [place] [address], [place] Glucose [Mass/Vol] 302 mg/dL High 70-100 [facility] Comment on above: Performed By: #### 8 5499 ####[facility] [place] [address], [place] PORTABLE CHEST 1 VIEWon 03-24 PORTABLE CHEST 1 VIEW Normal [facility] Comment on above: Order Comment: Check Chest Tube Position POTASSIUM BLOODon 04-09-2021 Potassium [Moles/Vol] 4.6 mmol/L Normal 3.5-5.1 [facility] Comment on above: Order Comment: No: D o not add to previous draw Performed By: #### 1 0070, 03191 ####[facility] [facility] [address], [facility] PROTHROMBIN TIMEon 1 INR Coag (PPP) [Relative time] 1.22 {INR} High 0.91-1.16 [facility] Comment on above: Order Comment: post [...] OF ACTION, CLINICALEFFECTIVENESS, AND OPTIMAL THERAPEUTIC RANGE. [id number]. Performed By: #### 5 7307, 31831 ####[facility] [facility] [address], [facility] PT Coag (PPP) [Time] 15.4 s High 12.3-14.8 [facility] Comment on above: Order Comment: post op day 1No: Do not add to previous draw Result Comment: ALL RESULTS MUST BE INTERPRETED WITH RESPECT TO BLOOD DRAWING ARTIFACTOR DILUTION ERROR OF ANTICOAGULANT AT THE TIME OF SAMPLING. Performed By: #### 5 73, 45596 ####[facility] [place] [address], [facility] ACTIVATED CLOTTING TIMEon ACTIVATED CLOTTING TIME 121 sec Normal 82-152 [facility] Comment on above: Performed By: #### 3 0739 ####[facility] [place] [address], [place] ACTIVATED CLOTTING TIME 305 sec High 82-152 [facility] Comment on above: Performed By: #### 3 0739 ####[facility] [place] [address], [place] ACTIVATED CLOTTING TIME 286 sec High 82-152 [facility] Comment on above: Performed By: #### 3 0739 ####[facility] [place] [address], [place] ACTIVATED CLOTTING TIME 279 sec High 82-152 [facility] Comment on above: Performed By: #### 3 0739 ####[facility] [place] [address], [place] ACTIVATED CLOTTING TIME 325 sec High 82-152 [facility] Comment on above: Performed By: #### 3 0739 ####[facility] [place] [address], [place] ACTIVATED CLOTTING TIME 184 sec High 82-152 [facility] Comment on above: Performed By: #### 3 0739 ####[facility] [place] [address], [place] ACTIVATED CLOTTING TIME 121 sec Normal 82-152 [facility] Comment on above: Performed By: #### 3 0739 ####[facility] [place] [address], [place] APTTon 04-08-2021 aPTT Coag (Bld) [Time] 30.4 s Normal 25.0-35.0 [facility] Comment on above: Order Comment: No: [...] THIS PURPOSE. Performed By: #### 5 6101, 79185 ####[facility] [place] [address], [facility] aPTT Coag (Bld) [Time] 30.6 s Normal 25.0-35.0 [facility] Comment on above: Result Comment: ALL [...] THIS PURPOSE. Performed By: #### 5 7307, 19216, 94687 ####[facility] ARTERIAL BLOOD GAS WITH ICAo n 04-08-2021 BASE EXCESS -4 mmol/L Low -2-3 [facility] Comment on above: Order Comment: on ar rival to CVU Performed By: #### 8 4511 ####[facility] [facility] [place] [address], [facility] DELIVERY SYSTEMS MV Normal [facility] Comment on above: Order Comment: on ar rival to CVU Performed By: #### 8 4511 ####[facility] [place] [address], [facility] FIO2 70 % Normal [facility] Comment on above: Order Comment: on ar rival to CVU Performed By: #### 8 4511 ####[facility] [place] [address], [facility] HCO3 (Bld) [Moles/Vol] 21 mmol/L Normal 21-28 [facility] Comment on above: Order Comment: on ar rival to CVU Performed By: #### 8 4511 ####[facility] [place] [address], [facility] IONIZED CALCIUM 1.09 mmol/L Low 1.13-1.32 [facility] Comment on above: Order Comment: on ar rival to CVU Performed By: #### 8 4511 ####[facility] [place] [address], [facility] MIN VOLUME 14.2 Normal [facility] Comment on above: Order Comment: on ar rival to CVU Result Comment: Resu lt changed by DOTTY on 04/08/2021 19:16. The previous value was16.0. Performed By: #### 8 4511 ####[facility] [place] [address], [facility] MODALITY SIMV Normal [facility] Comment on above: Order Comment: on ar rival to CVU Performed By: #### 8 4511 ####[facility] [place] [address], [facility] Oxygen (Bld) [Partial pressure] 69 mm[Hg] Low 83-108 [facility] Comment on above: Order Comment: on ar rival to CVU Performed By: #### 8 4511 ####[facility] [place] [address], [facility] Oxygen saturation in Blood 93.8 % Low 94.0-97.0 [facility] Comment on above: Order Comment: on ar rival to CVU Performed By: #### 8 4511 ####[facility] [place] [address], [facility] PCO2 36 mmHg Normal 35-45 [facility] Comment on above: Order Comment: on ar rival to CVU Performed By: #### 8 4511 ####[facility] [place] [address], [facility] PEEP 8.0 CMH20 Normal [facility] Comment on above: Order Comment: on ar rival to CVU Performed By: #### 8 4511 ####[facility] [place] [address], [facility] PF RATIO 99 mmHg Normal [facility] Comment on above: Order Comment: on ar rival to CVU Performed By: #### 8 4511 ####[facility] [place] [address], [facility] pH (Bld) 7.37 [pH] Normal 7.35-7.45 [facility] Comment on above: Order Comment: on ar rival to CVU Performed By: #### 8 4511 ####[facility], [place] [address] [place] [address] PRESSURE SUPPORT 10 Normal [facility] Comment on above: Order Comment: on ar rival to CVU Performed By: #### 8 4511 ####[facility] [place] [address], [facility] Respiratory rate 16 /min Normal [facility] Comment on above: Order Comment: on ar rival to CVU Performed By: #### 8 4511 ####[facility] [place] [address], [facility] TIDAL VOLUME (VT) CC 700 Normal [facility] Comment on above: Order Comment: on ar rival to CVU Performed By: #### 8 4511 ####[facility] [place] [address], [facility] BASE EXCESS -4 mmol/L Low -2-3 [facility] Comment on above: Performed By: #### 8 4511 ####[facility] [place] [address], [facility] [employer] VENT Normal [facility] Comment on above: Performed By: #### 8 4511 ####[facility] [facility] [place] [address], [facility] FIO2 70 % Normal [facility] Comment on above: Performed By: #### 8 4511 ####[facility] [place] [address], [facility] HCO3 (Bld) [Moles/Vol] 23 mmol/L Normal 21-28 [facility] Comment on above: Performed By: #### 8 4511 ####[place] [address] [facility] [place] [address], [facility] IONIZED CALCIUM 1.14 mmol/L Normal 1.13-1.32 [facility] Comment on above: Performed By: #### 8 4511 ####[facility] [place] [address], [facility] MIN VOLUME 9.0 Normal [facility] Comment on above: Performed By: #### 8 4511 ####[facility] [facility] [place] [address], [facility] MODALITY SIMV Normal [facility] Comment on above: Performed By: #### 8 4511 ####[facility] [place] [address], [facility] Oxygen (Bld) [Partial pressure] 70 mm[Hg] Low 83-108 [facility] Comment on above: Performed By: #### 8 4511 ####[facility] [place] [address], [facility] Oxygen saturation in Blood 92.5 % Low 94.0-97.0 [facility] Comment on above: Performed By: #### 8 4511 ####[facility] PCO2 48 mmHg High 35-45 [facility] Comment on above: Performed By: #### 8 4511 ####[facility] [place] [address], [facility] PEEP 8.0 CMH20 Normal [facility] Comment on above: Performed By: #### 8 4511 ####[facility] [place] [address], [facility] PF RATIO 100 mmHg Normal [facility] Comment on above: Performed By: #### 8 4511 ####[facility] pH (Bld) 7.28 [pH] Low 7.35-7.45 [facility] Comment on above: Performed By: #### 8 4511 ####[facility] PRESSURE SUPPORT 10 Normal [facility] Comment on above: Performed By: #### 8 4511 ####[facility] Respiratory rate 14 /min Normal [facility] Comment on above: Performed By: #### 8 4511 ####[facility] TIDAL VOLUME (VT) CC 550 Normal [facility] Comment on above: Performed By: #### 8 4511 ####[facility] BASIC METABOLIC PANELon 08- Calcium [Mass/Vol] 7.7 mg/dL Low 8.6-10.3 [facility] Comment on above: Order Comment: No: D o not add to previous draw Performed By: #### 1 0070, 41083, 66830 ####[facility] [place] [address], [place] Chloride [Moles/Vol] 103 mmol/L Normal 98-107 [facility] Comment on above: Order Comment: No: D o not add to previous draw Performed By: #### 1 0070, 47797, 60336 ####[facility] [place] [address], [place] CO2 [Moles/Vol] 21 mmol/L Normal 21-31 [facility] Comment on above: Order Comment: No: D o not add to previous draw Performed By: #### 1 0070, 17499, 96711 ####[facility] [place] [address], [facility] Creatinine [Mass/Vol] 1.15 mg/dL Normal 0.70-1.30 [facility] Comment on above: Order Comment: No: D o not add to previous draw Performed By: #### 1 0070, 48829, 79682 ####[facility] [place] [address], [place] GFR/1.73 sq M.predicted among blacks MDRD (S/P/Bld) [Vol rate/Area] mL/min/{1.73_m2} Normal >60 [facility] Comment on above: Order Comment: No: D o not add to previous draw Result Comment: Calc ulation may not be valid for patients over 70 years Performed By: #### 1 0070, 08966, 28746 ####[facility] [place] [address], [place] GFR/1.73 sq M.predicted among non-blacks MDRD (S/P/Bld) [Vol rate/Area] mL/min/{1.73_m2} Normal >60 [facility] Comment on above: Order Comment: No: D o not add to previous draw Result Comment: Calc ulation may not be valid for patients over 70 years Performed By: #### 1 0070, 92204, 01153 ####[facility] [place] [address], [place] Glucose [Mass/Vol] 224 mg/dL High 70-100 [facility] Comment on above: Order Comment: No: D o not add to previous draw Performed By: #### 1 0, 07319, 13317 ####[facility] [place] [address], [place] Potassium [Moles/Vol] 3.9 mmol/L Normal 3.5-5.1 [facility] Comment on above: Order Comment: No: D o not add to previous draw Performed By: #### 1 0, 18554, 97009 ####[facility] [place] [address], [place] Sodium [Moles/Vol] 134 mmol/L Low 136-145 [facility] Comment on above: Order Comment: No: D o not add to previous draw Performed By: #### 1 0, 10401, 84923 ####[facility] [place] [address], [place] Urea nitrogen [Mass/Vol] 22 mg/dL Normal 7-25 [facility] Comment on above: Order Comment: No: D o not add to previous draw Performed By: #### 1 0, 43686, 22967 ####[facility] [place] [address], [place] Calcium [Mass/Vol] 7.7 mg/dL Low 8.6-10.3 [facility] Comment on above: Performed By: #### 1 0, 15487, 65237 ####[facility] [place] [address], [place] Chloride [Moles/Vol] 105 mmol/L Normal 98-107 [facility] Comment on above: Performed By: #### 1 0, 46287, 04459 ####[facility] [place] [address], [place] CO2 [Moles/Vol] 24 mmol/L Normal 21-31 [facility] Comment on above: Performed By: #### 1 0070, 90907, 39162 ####[facility] [place] [address], [place] Creatinine [Mass/Vol] 0.81 mg/dL Normal 0.70-1.30 [facility] Comment on above: Performed By: #### 1 0, 12856, 29500 ####[facility] [place] [address], [place] GFR/1.73 sq M.predicted among blacks MDRD (S/P/Bld) [Vol rate/Area] mL/min/{1.73_m2} Normal >60 [facility] Comment on above: Result Comment: Calc ulation may not be valid for patients over 70 years Performed By: #### 1 0070, 12183, 51477 ####[facility] [place] [address], [place] GFR/1.73 sq M.predicted among non-blacks MDRD (S/P/Bld) [Vol rate/Area] mL/min/{1.73_m2} Normal >60 [facility] Comment on above: Result Comment: Calc ulation may not be valid for patients over 70 years Performed By: #### 1 0, 48618, 54921 ####[facility] [place] [address], [place] Glucose [Mass/Vol] 189 mg/dL High 70-100 [facility] Comment on above: Performed By: #### 1 0070, 98251, 48248 ####[facility] [place] [address], [place] Potassium [Moles/Vol] 4.3 mmol/L Normal 3.5-5.1 [facility] Comment on above: Performed By: #### 1 0070, 23774, 28518 ####[facility] [place] [address], [place] Sodium [Moles/Vol] 133 mmol/L Low 136-145 [facility] Comment on above: Performed By: #### 1 0070, 56614, 76942 ####[facility] [place] [address], [place] Urea nitrogen [Mass/Vol] 20 mg/dL Normal 7-25 [facility] Comment on above: Performed By: #### 1 0070, 08388, 22730 ####[facility] [place] [address], [place] Calcium [Mass/Vol] 8.7 mg/dL Normal 8.6-10.3 [facility] Comment on above: Order Comment: No: D o not add to previous draw Performed By: #### 0 0071, 33147, 30257 ####[facility] [place] [address], [place] Chloride [Moles/Vol] 103 mmol/L Normal 98-107 [facility] Comment on above: Order Comment: No: D o not add to previous draw Performed By: #### 0 0071, 58792, 45927 ####[facility] [place] [address], [place] CO2 [Moles/Vol] 26 mmol/L Normal 21-31 [facility] Comment on above: Order Comment: No: D o not add to previous draw Performed By: #### 0 0071, 11873, 47566 ####[facility] [place] [address], [place] Creatinine [Mass/Vol] 0.74 mg/dL Normal 0.70-1.30 [facility] Comment on above: Order Comment: No: D o not add to previous draw Performed By: #### 0 0071, 32928, 95067 ####[facility] [facility] [address], [facility] GFR/1.73 sq M.predicted among blacks MDRD (S/P/Bld) [Vol rate/Area] mL/min/{1.73_m2} Normal >60 [facility] Comment on above: Order Comment: No: D o not add to previous draw Result Comment: Calc ulation may not be valid for patients over 70 years Performed By: #### 0 0071, 29708, 74053 ####[facility] [facility] [place] [address], [facility] GFR/1.73 sq M.predicted among non-blacks MDRD (S/P/Bld) [Vol rate/Area] mL/min/{1.73_m2} Normal >60 [facility] Comment on above: Order Comment: No: D o not add to previous draw Result Comment: Calc ulation may not be valid for patients over 70 years Performed By: #### 0 0071, 53211, 36820 ####[facility] [facility] [address], [facility] Glucose [Mass/Vol] 107 mg/dL High 70-100 [facility] Comment on above: Order Comment: No: D o not add to previous draw Performed By: #### 0 0071, 12178, 51599 ####[facility] [facility] [place] [address], [facility] Potassium [Moles/Vol] 4.1 mmol/L Normal 3.5-5.1 [facility] Comment on above: Order Comment: No: D o not add to previous draw Performed By: #### 0 0071, 15758, 65632 ####[facility] [place] [address], [place] Sodium [Moles/Vol] 133 mmol/L Low 136-145 [facility] Comment on above: Order Comment: No: D o not add to previous draw Performed By: #### 0 0071, 23568, 07328 ####[facility] [facility] [address], [facility] Urea nitrogen [Mass/Vol] 19 mg/dL Normal 7-25 [facility] Comment on above: Order Comment: No: D o not add to previous draw Performed By: #### 0 0071, 00286, 70940 ####[facility] [facility].[address] CBC COMPLETE BLOOD COUNTon 0 04-08-2021 Erythrocyte distribution width (RBC) [Ratio] 14.4 % Normal 11.5-15.0 [facility] Comment on above: Order Comment: No: D o not add to previous draw Performed By: #### 5 0608 ####[facility] [facility].[address] Hematocrit (Bld) [Volume fraction] 33.4 % Low 39.0-50.0 [facility] Comment on above: Order Comment: No: D o not add to previous draw Performed By: #### 5 0608 ####[place] [address] [facility].[address] Hemoglobin (Bld) [Mass/Vol] 10.9 g/dL Low 13.0-17.0 [facility] Comment on above: Order Comment: No: D o not add to previous draw Performed By: #### 5 0608 ####[facility] [facility] [address], [facility] MCH (RBC) [Entitic mass] 30.4 pg Normal 27.0-33.0 [facility] Comment on above: Order Comment: No: D o not add to previous draw Performed By: #### 5 0608 ####[facility] [facility] [address], [facility] MCHC (RBC) [Mass/Vol] 32.6 g/dL Normal 32.0-35.0 [facility] Comment on above: Order Comment: No: D o not add to previous draw Performed By: #### 5 0608 ####[facility] [facility] [place] [address], [facility] MCV (RBC) [Entitic vol] 93.3 fL Normal 82.0-98.0 [facility] Comment on above: Order Comment: No: D o not add to previous draw Performed By: #### 5 0608 ####[facility] [facility].[address] Nucleated RBC/100 WBC (Bld) [Ratio] 0 % Normal 0-0 [facility] Comment on above: Order Comment: No: D o not add to previous draw Performed By: #### 5 0608 ####[facility] [facility] [address], [facility] PLAT CNT 228 10*3/uL Normal 150-400 [facility] Comment on above: Order Comment: No: D o not add to previous draw Performed By: #### 5 0608 ####[place] [address] [facility] [address], [facility] RBC (Bld) [#/Vol] 3.58 10*6/uL Low 4.20-5.70 [facility] Comment on above: Order Comment: No: D o not add to previous draw Performed By: #### 5 0608 ####[facility] [facility] [address], [facility] WBC (Bld) [#/Vol] 18.53 10*3/uL High 4.00-10.60 [facility] Comment on above: Order Comment: No: D o not add to previous draw Performed By: #### 5 0608 ####[facility] [facility] [address], [facility] Erythrocyte distribution width (RBC) [Ratio] 14.6 % Normal 11.5-15.0 [facility] Comment on above: Performed By: #### 5 0608 ####[facility] Hematocrit (Bld) [Volume fraction] 35.5 % Low 39.0-50.0 [facility] Comment on above: Performed By: #### 5 0608 ####[address] Hemoglobin (Bld) [Mass/Vol] 11.5 g/dL Low 13.0-17.0 [facility] Comment on above: Performed By: #### 5 0608 ####[address] MCH (RBC) [Entitic mass] 30.5 pg Normal 27.0-33.0 [facility] Comment on above: Performed By: #### 5 0608 ####[address] MCHC (RBC) [Mass/Vol] 32.4 g/dL Normal 32.0-35.0 The [facility] [facility] Comment on above: Performed By: #### 5 0608 ####[address] MCV (RBC) [Entitic vol] 94.2 fL Normal 82.0-98.0 [facility] Comment on above: Performed By: #### 5 0608 ####[address] Nucleated RBC/100 WBC (Bld) [Ratio] 0 % Normal 0-0 [facility] Comment on above: Performed By: #### 5 0608 ####[address] PLAT CNT 219 10*3/uL Normal 150-400 [facility] Comment on above: Performed By: #### 5 0608 ####[facility] [facility] [place] [address], [facility] RBC (Bld) [#/Vol] 3.77 10*6/uL Low 4.20-5.70 [facility] Comment on above: Performed By: #### 5 0608 ####[facility] [place] [address], [facility] WBC (Bld) [#/Vol] 14.37 10*3/uL High 4.00-10.60 [facility] Comment on above: Performed By: #### 5 0608 ####[facility] [facility].[address] Erythrocyte distribution width (RBC) [Ratio] 14.7 % Normal 11.5-15.0 [facility] Comment on above: Order Comment: No: D o not add to previous draw Performed By: #### 5 0608 ####[place] [address] [address] Hematocrit (Bld) [Volume fraction] 40.7 % Normal 39.0-50.0 [facility] Comment on above: Order Comment: No: D o not add to previous draw Performed By: #### 5 0608 ####[facility] [facility].[address] Hemoglobin (Bld) [Mass/Vol] 13.5 g/dL Normal 13.0-17.0 [facility] Comment on above: Order Comment: No: D o not add to previous draw Performed By: #### 5 0608 ####[facility] MCH (RBC) [Entitic mass] 30.5 pg Normal 27.0-33.0 [facility] Comment on above: Order Comment: No: D o not add to previous draw Performed By: #### 5 0608 ####[facility] MCHC (RBC) [Mass/Vol] 33.2 g/dL Normal 32.0-35.0 [facility] Comment on above: Order Comment: No: D o not add to previous draw Performed By: #### 5 0608 ####[facility] MCV (RBC) [Entitic vol] 92.1 fL Normal 82.0-98.0 [facility] Comment on above: Order Comment: No: D o not add to previous draw Performed By: #### 5 0608 ####[place] [address] Nucleated RBC/100 WBC (Bld) [Ratio] 0 % Normal 0-0 [facility] Comment on above: Order Comment: No: D o not add to previous draw Performed By: #### 5 0608 ####[facility] PLAT CNT 233 10*3/uL Normal 150-400 [facility] Comment on above: Order Comment: No: D o not add to previous draw Performed By: #### 5 0608 ####[address] RBC (Bld) [#/Vol] 4.42 10*6/uL Normal 4.20-5.70 [facility] Comment on above: Order Comment: No: D o not add to previous draw Performed By: #### 5 0608 ####[facility] [place] [address] WBC (Bld) [#/Vol] 7.11 10*3/uL Normal 4.00-10.60 [facility] Comment on above: Order Comment: No: D o not add to previous draw Performed By: #### 5 0608 ####[facility] [place] [address], [facility] COOXIMETRYon 04-08-2021 COHB 1 % Normal [facility] Comment on above: Performed By: #### 7 0207 ####[facility] [place] [address], [facility] METHB 1 % Normal [facility] Comment on above: Performed By: #### 7 0207 ####[facility] [place] [address], [facility] Oxygen saturation in Blood 77.5 % High 65.0-75.0 [facility] Comment on above: Performed By: #### 7 0207 ####[facility] [place] [address], [facility] THB 10.7 g/dL Normal [facility] Comment on above: Performed By: #### 7 0207 ####[facility] [place] [address], [facility] FERRITINon 04-08-2021 Ferritin [Mass/Vol] 116 ng/mL Normal 24-336 [facility] Comment on above: Performed By: #### 1 0070, [id number], 56858 ####[facility] [facility] [place] [address], [facility] FIBRINOGENon 04-08-2021 FIBRINOGEN 362 mg/dL Normal 150-425 [facility] Comment on above: Performed By: #### 5 7307, 27368, 17018 ####[facility] [place] [address], [facility] LACTATE BLOODon 04-08-2021 Lactate [Moles/Vol] 3.7 mmol/L High .5-2.2 [facility] Comment on above: Order Comment: No: D o not add to previous draw Result Comment: M-CR ITICAL RESULT(S) REVIEWED, CALLED TO AND READ BACK BY Kleber TRAN at 2203. Performed By: #### 1 0054 ####[facility] [place] [address], [facility] Lactate [Moles/Vol] 2.5 mmol/L High .5-2.2 [facility] Comment on above: Order Comment: No: D o not add to previous draw Performed By: #### 1 0054 ####[facility] [place] [address], [place] Lactate [Moles/Vol] 1.0 mmol/L Normal .5-2.2 [facility] Comment on above: Performed By: #### 1 0054 ####[facility] [place] [address], [place] MAGNESIUM BLOODon 04-08-2021 Magnesium [Mass/Vol] 2.3 mg/dL Normal 1.9-2.7 [facility] Comment on above: Order Comment: No: D o not add to previous draw Performed By: #### 1 0070, 70848, 35311 ####[facility] [place] [address], [place] Magnesium [Mass/Vol] 1.9 mg/dL Normal 1.9-2.7 [facility] Comment on above: Performed By: #### 1 0070, 64016, 96507 ####[facility] [place] [address], [place] Magnesium [Mass/Vol] 2.2 mg/dL Normal 1.9-2.7 [facility] Comment on above: Order Comment: No: D o not add to previous draw Performed By: #### 0 0071, 62785, 49946 ####[facility] [place] [address], [place] PERFUSION BLOOD PANELon 03-24 BASE EXCESS -3.0 mmol/L Low -2.0-3.0 [facility] Comment on above: Performed By: #### 3 0738 ####[facility] [place] [address], [place] Glucose [Mass/Vol] 193 mg/dL High 70-105 [facility] Comment on above: Performed By: #### 3 0738 ####[facility] [place] [address], [facility] Hematocrit (Bld) [Volume fraction] 36 % Low 38-51 [facility] Comment on above: Performed By: #### 3 0738 ####[facility] [place] [address], [facility] Hemoglobin (Bld) [Mass/Vol] 12.2 g/dL Normal 12.0-17.0 [facility] Comment on above: Performed By: #### 3 0738 ####[facility] [place] [address], [facility] IONIZED CALCIUM 1.22 mmol/L Normal 1.12-1.32 [facility] Comment on above: Performed By: #### 3 0738 ####[facility] [place] [address], [facility] Oxygen (Bld) [Partial pressure] 131.0 mm[Hg] High 80.0-105.0 [facility] Comment on above: Performed By: #### 3 0738 ####[facility] [id number], [facility] PCO2 51.6 mmHg High 35.0-45.0 [facility] Comment on above: Performed By: #### 3 0738 ####[facility] [place] [address], [place] pH (Bld) 7.28 [pH] Low 7.35-7.45 [facility] Comment on above: Performed By: #### 3 0738 ####[facility] [place] [address], [facility] Potassium [Moles/Vol] 4.4 mmol/L Normal 3.5-4.9 [facility] Comment on above: Performed By: #### 3 0738 ####[facility] [place] [address], [facility] Sodium [Moles/Vol] 139 mmol/L Normal 138-146 [facility] Comment on above: Performed By: #### 3 0738 ####[facility] [place] [address], [facility] BASE EXCESS -2.0 mmol/L Normal -2.0-3.0 [facility] Comment on above: Performed By: #### 3 0738 ####[place] [address] [facility] [place] [address], [facility] Glucose [Mass/Vol] 156 mg/dL High 70-105 [facility] Comment on above: Performed By: #### 3 0738 ####[place] [address] [facility] [place] [address], [facility] Hematocrit (Bld) [Volume fraction] 36 % Low 38-51 [facility] Comment on above: Performed By: #### 3 0738 ####[facility] [facility] [place] [address], [facility] Hemoglobin (Bld) [Mass/Vol] 12.2 g/dL Normal 12.0-17.0 [facility] Comment on above: Performed By: #### 3 0738 ####[place] [address] [id number], [facility] IONIZED CALCIUM 1.17 mmol/L Normal 1.12-1.32 The [facility] Comment on above: Performed By: #### 3 0738 ####[facility] [place] [address], [facility] Oxygen (Bld) [Partial pressure] 196.0 mm[Hg] High 80.0-105.0 [facility] Comment on above: Performed By: #### 3 0738 ####[facility] [place] [address], [place] PCO2 46.9 mmHg High 35.0-45.0 [facility] Comment on above: Performed By: #### 3 0738 ####[facility] [place] [address], [facility] pH (Bld) 7.33 [pH] Low 7.35-7.45 [facility] Comment on above: Performed By: #### 3 0738 ####[facility] [place] [address], [place] Potassium [Moles/Vol] 4.5 mmol/L Normal 3.5-4.9 [facility] Comment on above: Performed By: #### 3 0738 ####[facility] [place] [address], [place] Sodium [Moles/Vol] 139 mmol/L Normal 138-146 [facility] Comment on above: Performed By: #### 3 0738 ####[facility] [place] [address], [place] BASE EXCESS -1.0 mmol/L Normal -2.0-3.0 [facility] Comment on above: Performed By: #### 3 0738 ####[facility] [place] [address], [place] Glucose [Mass/Vol] 133 mg/dL High 70-105 [facility] Comment on above: Performed By: #### 3 0738 ####[facility] Hematocrit (Bld) [Volume fraction] 37 % Low 38-51 [facility] Comment on above: Performed By: #### 3 0738 ####[facility] [facility].[address] Hemoglobin (Bld) [Mass/Vol] 12.6 g/dL Normal 12.0-17.0 [facility] Comment on above: Performed By: #### 3 0738 ####[address] IONIZED CALCIUM 1.19 mmol/L Normal 1.12-1.32 [facility] Comment on above: Performed By: #### 3 0738 ####[address] Oxygen (Bld) [Partial pressure] 184.0 mm[Hg] High 80.0-105.0 [facility] Comment on above: Performed By: #### 3 0738 ####[address] PCO2 46.6 mmHg High 35.0-45.0 [facility] Comment on above: Performed By: #### 3 0738 ####[place] [address] [facility].[address] pH (Bld) 7.34 [pH] Low 7.35-7.45 [facility] Comment on above: Performed By: #### 3 0738 ####[address] Potassium [Moles/Vol] 4.3 mmol/L Normal 3.5-4.9 [facility] Comment on above: Performed By: #### 3 0738 ####[address] [place] [address], [facility] Sodium [Moles/Vol] 139 mmol/L Normal 138-146 [facility] Comment on above: Performed By: #### 3 0738 ####[facility] [place] [address], [facility] BASE EXCESS -1.0 mmol/L Normal -2.0-3.0 [facility] Comment on above: Performed By: #### 3 0738 ####[place] [address] [place] [address], [facility] Glucose [Mass/Vol] 118 mg/dL High 70-105 [facility] Comment on above: Performed By: #### 3 0738 ####[address] [place] [address], [facility] Hematocrit (Bld) [Volume fraction] 39 % Normal 38-51 [facility] Comment on above: Performed By: #### 3 0738 ####[place] [address] [facility] [address], [facility] Hemoglobin (Bld) [Mass/Vol] 13.3 g/dL Normal 12.0-17.0 [facility] Comment on above: Performed By: #### 3 0738 ####[place] [address] [facility] [place] [address], [facility] IONIZED CALCIUM 1.17 mmol/L Normal 1.12-1.32 [facility] Comment on above: Performed By: #### 3 0738 ####[place] [address] [facility] [place] [address], [facility] Oxygen (Bld) [Partial pressure] 96.0 mm[Hg] Normal 80.0-105.0 [facility] Comment on above: Performed By: #### 3 0738 ####[address] [place] [address], [facility] PCO2 41.2 mmHg Normal 35.0-45.0 [facility] Comment on above: Performed By: #### 3 0738 ####[facility] [place] [address], [facility] pH (Bld) 7.38 [pH] Normal 7.35-7.45 [facility] Comment on above: Performed By: #### 3 0738 ####[facility] [place] [address], [facility] Potassium [Moles/Vol] 4.3 mmol/L Normal 3.5-4.9 [facility] Comment on above: Performed By: #### 3 0738 ####[facility] [place] [address], [place] Sodium [Moles/Vol] 139 mmol/L Normal 138-146 The [facility] Comment on above: Performed By: #### 3 0738 ####[facility] [place] [address], [facility] PHOSPHORUS BLOODon Phosphate [Mass/Vol] 4.0 mg/dL Normal 2.5-5.0 [facility] Comment on above: Order Comment: No: D o not add to previous draw Performed By: #### 1 0070, 27607, 83349 ####[facility] [place] [address], [facility] Phosphate [Mass/Vol] 3.8 mg/dL Normal 2.5-5.0 [facility] Comment on above: Order Comment: No: D o not add to previous draw Performed By: #### 0 0071, 68292, 63707 ####[facility] [place] [address], [place] POC GLUCOSE LABon 04-08-2021 Glucose [Mass/Vol] 252 mg/dL High 70-100 The [facility] Comment on above: Performed By: #### 8 5499 ####[facility] [place] [address], [place] Glucose [Mass/Vol] 240 mg/dL High 70-100 The [facility] Comment on above: Performed By: #### 8 5499 ####[facility] [place] [address], [place] Glucose [Mass/Vol] 126 mg/dL High 70-100 [facility] Comment on above: Performed By: #### 8 5499 ####[facility] [place] [address], [place] Glucose [Mass/Vol] 178 mg/dL High 70-100 [facility] Comment on above: Performed By: #### 8 5499 ####[facility] [place] [address], [place] Glucose [Mass/Vol] 195 mg/dL High 70-100 [facility] Comment on above: Performed By: #### 8 5499 ####[facility] [place] [address], [place] Glucose [Mass/Vol] 113 mg/dL High 70-100 [facility] Comment on above: Performed By: #### 8 5499 ####[facility] [place] [address], [place] Glucose [Mass/Vol] 118 mg/dL High 70-100 [facility] Comment on above: Performed By: #### 8 5499 ####[facility] [place] [address], [place] PORTABLE CHEST 1 VIEWon 08 PORTABLE CHEST 1 VIEW Normal [facility] Comment on above: Order Comment: Check Chest Tube Position, ON ARRIVAL TO CVU PROTHROMBIN TIMEon INR Coag (PPP) [Relative time] 1.20 {INR} High 0.91-1.16 [facility] Comment on above: Order Comment: No: D o not add to previous draw Result Comment: [facility] P RECOMMENDED INR FOR WARFARIN THERAPY CONDITION INRPROPHYLAXIS OF VENOUS THROMBOSIS 2-3(HIGH-RISK SURGERY)TREATMENT OF VENOUS THROMBOSIS 2-3TREATMENT OF PULMONARY EMBOLISM 2-3PREVENTION OF SYSTEMIC EMBOLISM: 2-3 ACUTE MYOCARDIAL INFARCTION TISSUE HEART VALVES VALVULAR HEART DISEASE ATRIAL FIBRILLATION RECURRENT SYSTEMIC EMBOLISMMECHANICAL HEART VALVE 2.5-3.5 FROM: ORAL ANTICOAGULANTS. MECHANISM OF ACTION, CLINICALEFFECTIVENESS, AND OPTIMAL THERAPEUTIC RANGE. [id number];108:231S-246S. Performed By: #### 5 6101, 15256 ####[facility] [facility] [address], [facility] PT Coag (PPP) [Time] 15.2 s High 12.3-14.8 [facility] Comment on above: Order Comment: No: D o not add to previous draw Result Comment: ALL RESULTS MUST BE INTERPRETED WITH RESPECT TO BLOOD DRAWING ARTIFACTOR DILUTION ERROR OF ANTICOAGULANT AT THE TIME OF SAMPLING. Performed By: #### 5 6101, 82355 ####[facility] [facility] [place] [address], [facility] INR Coag (PPP) [Relative time] 1.23 {INR} High 0.91-1.16 [facility] Comment on above: Result Comment: [facility] P RECOMMENDED INR FOR [place] THERAPY CONDITION INRPROPHYLAXIS OF VENOUS THROMBOSIS 2-3(HIGH-RISK SURGERY)TREATMENT OF VENOUS THROMBOSIS 2-3TREATMENT OF PULMONARY EMBOLISM 2-3PREVENTION OF SYSTEMIC EMBOLISM: 2-3 ACUTE MYOCARDIAL INFARCTION TISSUE HEART VALVES VALVULAR HEART DISEASE ATRIAL FIBRILLATION RECURRENT SYSTEMIC EMBOLISMMECHANICAL HEART VALVE 2.5-3.5 FROM: ORAL ANTICOAGULANTS. MECHANISM OF ACTION, CLINICALEFFECTIVENESS, AND OPTIMAL THERAPEUTIC RANGE. [id number];108:231S-246S. Performed By: #### 5 7307, 80569, 18369 ####[facility] PT Coag (PPP) [Time] 15.5 s High 12.3-14.8 [facility] Comment on above: Result Comment: ALL RESULTS MUST BE INTERPRETED WITH RESPECT TO BLOOD DRAWING ARTIFACTOR DILUTION ERROR OF ANTICOAGULANT AT THE TIME OF SAMPLING. Performed By: #### 5 7307, 98079, 23744 ####[facility] [facility].[address] INR Coag (PPP) [Relative time] 1.05 {INR} Normal 0.91-1.16 [facility] Comment on above: Order Comment: No: [...] OF ACTION, CLINICALEFFECTIVENESS, AND OPTIMAL THERAPEUTIC RANGE. [id number];108:231S-246S. Performed By: #### 5 6101 ####[facility] PT Coag (PPP) [Time] 13.7 s Normal 12.3-14.8 [facility] Comment on above: Order Comment: No: D o not add to previous draw Result Comment: ALL RESULTS MUST BE INTERPRETED WITH RESPECT TO BLOOD DRAWING ARTIFACTOR DILUTION ERROR OF ANTICOAGULANT AT THE TIME OF SAMPLING. Performed By: #### 5 6101 ####[facility] TROPONIN-Ion 04-08-2021 Troponin I.cardiac [Mass/Vol] 0.34 ng/mL Critically high 0.00-0.04 [facility] Comment on above: Order Comment: No: D o not add to previous draw Result Comment: M-TR OPCINDA INITIAL CRITICAL HIGH; RESPUN AND RETESTEDM-CRITICAL RESULT(S) REVIEWED, CALLED TO AND READ BACK BY Kleber TRAN at 2229.REFERENCE RANGES: 0.00 - 0.04 ng/ml NORMAL 0.05 - 0.50 ng/ml INDETERMINATE > 0.50 ng/ml CONSISTENT WITH AN M.I. Performed By: #### 3 7260 ####[facility] [place] [address], [facility] POC GLUCOSE LABon 04-07-2021 Glucose [Mass/Vol] 121 mg/dL High 70-100 [facility] Comment on above: Performed By: #### 8 5499 ####[facility] [facility] [address], [facility] Glucose [Mass/Vol] 165 mg/dL High 70-100 The [facility] Comment on above: Performed By: #### 8 5499 ####[facility] [facility] [address], [facility] Glucose [Mass/Vol] 109 mg/dL High 70-100 [facility] Comment on above: Performed By: #### 8 5499 ####[facility] [facility].[address] POC SARS COV2 ANTIGEN NEGATI VEon 04-07-2021 POC SARS COV2 ANTIGEN NEG Negative Normal NEGATIVE [facility] Comment on above: Result Comment: Nega [...] of clinicalsigns and symptoms consistent with COVID-19.The [employer] COVID-19 Ag Card is a lateral flow immunoassay intended forthe qualitative detection of nucleocapsid protein antigen [id number] in direct nasal swabs from individuals within [...] Certificate ofAccreditation. Performed By: #### 3 1977 ####[facility] [facility] [address], [facility] Pulmonary Functionon 021 Pulmonary Function Normal The [facility] RBC'S 4 UNITSon 04-07-2021 CROSSMATCH INTERP 1 COMP Normal The [facility] Comment on above: Performed By: #### 8 6004 ####[facility] [place] [address], [facility] CROSSMATCH INTERP 2 COMP Normal The [facility] Comment on above: Performed By: #### 8 6004 ####[facility] [place] [address], [facility] CROSSMATCH INTERP 3 COMP Normal [facility] Comment on above: Performed By: #### 8 6004 ####[facility] [facility] [address], [facility] CROSSMATCH INTERP 4 COMP Normal The [facility] Comment on above: Performed By: #### 8 6004 ####[facility] [facility] [place] [address], [facility] PRODUCT CODE 1 E0336 Normal The [facility] Comment on above: Performed By: #### 8 6004 ####[facility] [facility] [place] [address], [place] PRODUCT CODE 2 E0336 Normal The [facility] Comment on above: Performed By: #### 8 6004 ####[facility] [facility] [address], [place] PRODUCT CODE 3 E0336 Normal The [facility] Comment on above: Performed By: #### 8 6004 ####[facility] [place] [address], [place] PRODUCT CODE 4 E0336 Normal [facility] Comment on above: Performed By: #### 8 6004 ####[facility] [facility], [place] [address] PRODUCT STATUS 1 RE Normal The [facility] Comment on above: Result Comment: Resu lt changed by IF on 04/08/2021 12:37. The previous value was XM.Result changed by IF on 04/08/2021 16:53. The previous value was IS.Result changed by IF on 04/11/2021 11:14. The previous value was XM. Performed By: #### 8 6004 ####[facility] [facility] [address], [facility] PRODUCT STATUS 2 RE Normal [facility] Comment on above: Result Comment: Resu lt changed by IF on 04/08/2021 12:37. The previous value was XM.Result changed by IF on 04/08/2021 16:53. The previous value was IS.Result changed by IF on 04/11/2021 11:14. The previous value was XM. Performed By: #### 8 6004 ####[place] [address] [facility] [address], [facility] PRODUCT STATUS 3 RE Normal [facility] Comment on above: Result Comment: Resu lt changed by IF on 04/08/2021 12:37. The previous value was XM.Result changed by IF on 04/08/2021 16:53. The previous value was IS.Result changed by IF on 04/11/2021 11:14. The previous value was XM. Performed By: #### 8 6004 ####[place] [address] [facility] [address], [facility] PRODUCT STATUS 4 RE Normal [facility] Comment on above: Result Comment: Resu lt changed by IF on 04/08/2021 12:37. The previous value was XM.Result changed by IF on 04/08/2021 16:53. The previous value was IS.Result changed by IF on 04/11/2021 11:14. The previous value was XM. Performed By: #### 8 6004 ####[facility] [facility].[place], [place] [id number] [place] [address] UNIT ABO 1 O Normal [facility] Comment on above: Performed By: #### 8 6004 ####[facility] [facility].[place], [place] [id number] [place] [address] UNIT ABO 2 O Normal [facility] Comment on above: Performed By: #### 8 6004 ####[facility] [facility].[place], [place] [address] [place] [address] UNIT ABO 3 O Normal [facility] Comment on above: Performed By: #### 8 6004 ####[facility] [facility].[place], [place] [address] [place] [address] UNIT ABO 4 O Normal [facility] Comment on above: Performed By: #### 8 6004 ####[facility] [facility].[address] UNIT ID 1 [id number] Normal [facility] Comment on above: Performed By: #### 8 6004 ####[facility] [facility].[address] UNIT ID 2 [id number] Normal [facility] Comment on above: Performed By: #### 8 6004 ####[facility] [facility].[place], [place] [address] [place] [address] UNIT ID 3 [id number] Normal [facility] Comment on above: Performed By: #### 8 6004 ####[facility] [facility] [address], [facility] UNIT ID 4 [id number] Normal [facility] Comment on above: Performed By: #### 8 6004 ####[facility] [facility].[place], [place] [address] UNIT RH 1 Positive Normal [facility] Comment on above: Performed By: #### 8 6004 ####[facility] [place] [address], [facility] UNIT RH 2 Positive Normal [facility] Comment on above: Performed By: #### 8 6004 ####[facility] [place] [address], [facility] UNIT RH 3 Positive Normal [facility] Comment on above: Performed By: #### 8 6004 ####[facility] [place] [address], [facility] UNIT RH 4 Positive Normal [facility] Comment on above: Performed By: #### 8 6004 ####[facility] [place] [address], [facility] TYPE AND SCREENon 04-07-2021 ABO INTERPRETATION O Normal [facility] Comment on above: Performed By: #### 6 2586 ####[facility] [place] [address], [facility] RH INTERPRETATION Positive Normal [facility] Comment on above: Performed By: #### 6 2586 ####[facility] [place] [address], [facility] *MRSA/MSSA DNA NASALon 04-06 *MRSA/MSSA DNA NASAL Clinical Report: (D) Specimen: NASAL SWAB Collected: 04/06/2021 12:43 Status: Final Last Updated: 04/06/2021 16:01 MSSA DNA (Final) Negative MRSA DNA (Final) Negative Normal [facility] Comment on above: Performed By: #### 3 1595 ####[facility] [place] [address], [facility] BASIC METABOLIC PANELon 08- Calcium [Mass/Vol] 8.9 mg/dL Normal 8.6-10.3 [facility] Comment on above: Order Comment: No: D o not add to previous draw Performed By: #### 1 0, 84042 ####[facility] [place] [address], [facility] Chloride [Moles/Vol] 103 mmol/L Normal 98-107 [facility] Comment on above: Order Comment: No: D o not add to previous draw Performed By: #### 1 0, 24140 ####[facility] [place] [address], [place] CO2 [Moles/Vol] 26 mmol/L Normal 21-31 [facility] Comment on above: Order Comment: No: D o not add to previous draw Performed By: #### 1 0, 81320 ####[facility] [place] [address], [facility] Creatinine [Mass/Vol] 0.78 mg/dL Normal 0.70-1.30 [facility] Comment on above: Order Comment: No: D o not add to previous draw Performed By: #### 1 69, 41934 ####[facility] [place] [address], [facility] GFR/1.73 sq M.predicted among blacks MDRD (S/P/Bld) [Vol rate/Area] mL/min/{1.73_m2} Normal >60 [facility] Comment on above: Order Comment: No: D o not add to previous draw Result Comment: Calc ulation may not be valid for patients over 70 years Performed By: #### 1 69, 78115 ####[facility] [place] [address], [facility] GFR/1.73 sq M.predicted among non-blacks MDRD (S/P/Bld) [Vol rate/Area] mL/min/{1.73_m2} Normal >60 [facility] Comment on above: Order Comment: No: D o not add to previous draw Result Comment: Calc ulation may not be valid for patients over 70 years Performed By: #### 1 69, 67564 ####[facility] [facility].[address] Glucose [Mass/Vol] 101 mg/dL High 70-100 [facility] Comment on above: Order Comment: No: D o not add to previous draw Performed By: #### 1 69, 21283 ####[facility] [facility].[address] Potassium [Moles/Vol] 4.1 mmol/L Normal 3.5-5.1 [facility] Comment on above: Order Comment: No: D o not add to previous draw Performed By: #### 1 69, 23418 ####[place] [address] [facility].[address] Sodium [Moles/Vol] 134 mmol/L Low 136-145 [facility] Comment on above: Order Comment: No: D o not add to previous draw Performed By: #### 1 69, 74127 ####[place] [address] [facility].[address] Urea nitrogen [Mass/Vol] 20 mg/dL Normal 7-25 [facility] Comment on above: Order Comment: No: D o not add to previous draw Performed By: #### 1 69, 19136 ####[place] [address] [facility].[address] CBC COMPLETE BLOOD COUNTon 0 8- Erythrocyte distribution width (RBC) [Ratio] 15.3 % High 11.5-15.0 [facility] Comment on above: Order Comment: No: D o not add to previous draw Performed By: #### 5 0608 ####[place] [address] [facility].[address] Hematocrit (Bld) [Volume fraction] 43.0 % Normal 39.0-50.0 [facility] Comment on above: Order Comment: No: D o not add to previous draw Performed By: #### 5 0608 ####[facility] [facility].[address] Hemoglobin (Bld) [Mass/Vol] 14.3 g/dL Normal 13.0-17.0 [facility] Comment on above: Order Comment: No: D o not add to previous draw Performed By: #### 5 0608 ####[facility] MCH (RBC) [Entitic mass] 30.6 pg Normal 27.0-33.0 [facility] Comment on above: Order Comment: No: D o not add to previous draw Performed By: #### 5 0608 ####[facility] MCHC (RBC) [Mass/Vol] 33.3 g/dL Normal 32.0-35.0 [facility] Comment on above: Order Comment: No: D o not add to previous draw Performed By: #### 5 0608 ####[place] [address] [facility].[address] MCV (RBC) [Entitic vol] 92.1 fL Normal 82.0-98.0 [facility] Comment on above: Order Comment: No: D o not add to previous draw Performed By: #### 5 0608 ####[facility] Nucleated RBC/100 WBC (Bld) [Ratio] 0 % Normal 0-0 [facility] Comment on above: Order Comment: No: D o not add to previous draw Performed By: #### 5 0608 ####[place] [address], [facility] PLAT CNT 238 10*3/uL Normal 150-400 [facility] Comment on above: Order Comment: No: D o not add to previous draw Performed By: #### 5 0608 ####[facility] [facility] [place] [address], [facility] RBC (Bld) [#/Vol] 4.67 10*6/uL Normal 4.20-5.70 The [facility] Comment on above: Order Comment: No: D o not add to previous draw Performed By: #### 5 0608 ####[facility] [facility] [place] [address], [place] WBC (Bld) [#/Vol] 6.86 10*3/uL Normal 4.00-10.60 [facility] Comment on above: Order Comment: No: D o not add to previous draw Performed By: #### 5 0608 ####[facility] [facility] [address], [facility] MAGNESIUM BLOODon 04-06-2021 Magnesium [Mass/Vol] 2.0 mg/dL Normal 1.9-2.7 [facility] Comment on above: Order Comment: No: D o not add to previous draw Performed By: #### 1 0070, 63301 ####[facility] [facility] [place] [address], [facility] POC GLUCOSE LABon 04-06-2021 Glucose [Mass/Vol] 118 mg/dL High 70-100 The [facility] Comment on above: Performed By: #### 8 5499 ####[facility] [facility] [address], [place] Glucose [Mass/Vol] 108 mg/dL High 70-100 The [facility] Comment on above: Performed By: #### 8 5499 ####[facility] [facility] [place] [address], [place] Glucose [Mass/Vol] 114 mg/dL High 70-100 [facility] Comment on above: Performed By: #### 8 5499 ####[facility] [facility] [address], [facility] Glucose [Mass/Vol] 126 mg/dL High 70-100 The [facility] Comment on above: Performed By: #### 8 5499 ####[facility] [facility] [place] [address], [facility] URINALYSIS REFLEXon 04-06-20 21 Appearance (U) CLEAR Normal CLEAR [facility] Comment on above: Order Comment: No: D o not add to previous drawCriteria for reflexing a culture was not met. Please call the lab [id number] within 24 hours of collection time if culture is needed Performed By: #### 3 0965 ####[facility] [place] [address], [facility] Bilirubin Ql (U) Negative Normal NEGATIVE [facility] Comment on above: Order Comment: No: D o not add to previous drawCriteria for reflexing a culture was not met. Please call the lab [id number] within 24 hours of collection time if culture is needed Performed By: #### 3 0965 ####[facility] [place] [address], [facility] Color (U) YELLOW Normal YELLOW [facility] Comment on above: Order Comment: No: D o not add to previous drawCriteria for reflexing a culture was not met. Please call the lab [id number] within 24 hours of collection time if culture is needed Performed By: #### 3 0965 ####[facility] [facility] [address], [facility] Glucose Ql (U) Negative Normal NEGATIVE [facility] Comment on above: Order Comment: No: D o not add to previous drawCriteria for reflexing a culture was not met. Please call the lab [id number] within 24 hours of collection time if culture is needed Performed By: #### 3 0965 ####[facility] [facility].[address] Hemoglobin Ql (U) Negative Normal NEGATIVE [facility] Comment on above: Order Comment: No: D o not add to previous drawCriteria for reflexing a culture was not met. Please call the lab [id number] within 24 hours of collection time if culture is needed Performed By: #### 3 0965 ####[facility] [facility] [address], [facility] KETONE Negative Normal NEGATIVE [facility] Comment on above: Order Comment: No: D o not add to previous drawCriteria for reflexing a culture was not met. Please call the lab [id number] within 24 hours of collection time if culture is needed Performed By: #### 3 0965 ####[facility] [place] [address], [facility] LEUK JESS Negative Normal NEGATIVE [facility] Comment on above: Order Comment: No: D o not add to previous drawCriteria for reflexing a culture was not met. Please call the lab [id number] within 24 hours of collection time if culture is needed Performed By: #### 3 0965 ####[place] [address] MICRO NOT DONE Normal [facility] Comment on above: Order Comment: No: D o not add to previous drawCriteria for reflexing a culture was not met. Please call the lab [id number] within 24 hours of collection time if culture is needed Result Comment: Micr oscopics not performed on urines withnegative chemical reactions unless requested in original order Performed By: #### 3 0965 ####[facility] [facility] [address], [facility] Nitrite Ql (U) Negative Normal NEGATIVE [facility] Comment on above: Order Comment: No: D o not add to previous drawCriteria for reflexing a culture was not met. Please call the lab [id number] within 24 hours of collection time if culture is needed Performed By: #### 3 0965 ####[facility] [facility].[address] pH (U) 6.0 [pH] Normal 5.0-8.0 [facility] Comment on above: Order Comment: No: D o not add to previous drawCriteria for reflexing a culture was not met. Please call the lab [id number] within 24 hours of collection time if culture is needed Performed By: #### 3 0965 ####[facility] Protein Ql (U) Negative Normal NEGATIVE [facility] Comment on above: Order Comment: No: D o not add to previous drawCriteria for reflexing a culture was not met. Please call the lab [id number] within 24 hours of collection time if culture is needed Performed By: #### 3 0965 ####[facility] SPEC GRAV 1.019 Normal 1.015-1.020 The [facility] Comment on above: Order Comment: No: D o not add to previous drawCriteria for reflexing a culture was not met. Please call the lab [id number] within 24 hours of collection time if culture is needed Performed By: #### 3 0965 ####[facility] Encounters Encounter Date Encounter Type Care Provider Facility Start: 06-05-2023 End: 06-05-2023 ambulatory [facility] Start: 05-18-2023 End: 05-18-2023 ambulatory [facility] Facility:[facility] Start: 01-06-2023 End: 01-06-2023 ambulatory [facility] Start: 10-10-2022 End: 10-10-2022 ambulatory [facility] Start: 09-03-2022 End: 09-03-2022 ambulatory Moshe Garcia Other [facility] Other Start: 09-03-2022 Office outpatient ne w [...] Evaluation and management of inpatient MAL BARNES Facility:[facility] Procedures Date Procedure Procedure Detail Performing Clinician Start: 05-24-2021 Antibody screen MAL BARNES Comment on above: Performed By: #### 6 2586 ####[facility] [place] [address], [facility] Start: 05-23-2021 EXCISION OF STERNUM, OPEN APPROACH [...] on above: Performed By: #### 6 2586 ####[facility] [place], [place] [address] [place] [address] Start: 05-16-2021 EXCISION OF CHEST SK IN, EXTERNAL APPROACH AKANKSHA UP Start: 05-16-2021 RESPIRATORY VENTILAT ION, LESS THAN 24 CONSECUTIVE HOURS GUDELIA BARNES Start: 05-15-2021 Antibody screen MAL MOLLY Comment on above: Performed By: #### 6 2586 ####[facility] [place] [address], [facility] Start: 04-07-2021 Antibody screen MAL MOLLY Comment on above: Performed By: #### 6 2586 ####[facility], [place] [address] [place] [address] Payers Date Payer Category Payer Private Health Insurance [id number] Self-pay 1945 Unknown [id number] 2.16.8 [id number] 1945 Unknown [id number] 2.16.84 [id number] 1945 Unknown [id number] 2.16.84 [id number] 1945 Unknown [id number] 2.16.84 [id number] 1945 Unknown [id number] 2.16.84 [id number] 1945 Unknown [id number] 2.16.84 [id number] 1944 Unknown [id number] 2.16.84 [id number] 1945 Unknown [id number] 2.16.84 [id number] 1945 Unknown [id number] 2.16.84 [id number] 1945 Unknown [id number] 2.16.84 [id number] Unknown [id number] 2.16.8 [id number] Social History Date Type Detail Facility Sex Assigned At [facility] Other Clinical Notes 10-11-2020 to 06-05-2023 Note Date & Type Note Facility 06-05-2023 Note [facility]iology - [facility] Subjective Arianne Mcqueen is a [...] He was resuscitated and admitted to the [facility]. His initial investigation was negative. He [...] In August 2021 he was admitted to [facility] and then transferred to [facility] due to COVID infection and large pericardial [...] worsening renal funct (more content not included)... [facility] 01-06-2023 Note Cardiovascular Medic ine [facility] SUBJECTIVE Chief Complaint Patient presents with Coronary [...] He was resuscitated and admitted to the [facility]. His initial investigation was negative. He [...] In August 2021 he was admitted to [facility] and then transferred to [facility] due to COVID infection and large pericardial effusion. He was treated with diuretics. CTA of the chest August 2021 found effusion to be moderate and did not necessitate pericardiocentesis. He has dyspnea on exertion when walking and doing physical activity. No chest pain. He has bilateral leg swelling. He is in NYHA class II-III. He reports that he ran out of [place] over the past 5 days. Recent testing: [...] normal right-sided pressu (more content not included)... [facility] 01-06-2023 Note Patient here for 3 m o follow up GROVES, CAD, and CHF. He saw Dr. Mayers in October 2022. Denies chest pain. He states his GROVES is improving. Review of Systems Cardiovascular: Positive for dyspnea on exertion. Respiratory: Positive for cough. Skin: Positive for color change and dry skin. All other systems reviewed and are negative. [facility] 10-10-2022 Note Cardiovascular Medic [facility] SUBJECTIVE Chief Complaint Patient presents with Cardiac Stress Test Coronary Artery Disease Shortness of Breath Arianne Mcqueen is a 77 y.o. male here for follow-up. HPI Since last seen, he was admitted to [facility] for PNA and sepsis. He notes [...] He was resuscitated and admitted to the [facility]. His initial investigation was negative. He [...] In August 2021 he was admitted to [facility] and then transferred to [facility] due to COVID infection and large pericardial effusion. He was treated with diuretics. CTA of the chest August 2021 found effusion to be moderate and did not necessitate pericardiocentesis. He has dyspnea on exertion when walking and doing physical activity. No chest pain. He has bilateral leg swelling. He is in NYHA class II-III. He reports that he ran out of Polar over the past 5 days. Recent testing: [...] on his per (more content not included)... [facility] 10-10-2022 Note Patient here for fol low up stress test. He was admitted to [facility] in Jul 2022 for sepsis and pneumonia. Still denies chest pain but gets very winded with exertion. Review of Systems Cardiovascular: Positive for dyspnea on exertion. All other systems reviewed and are negative. [facility] 09-15-2022 Note This report has been cancelled. [facility] 09-15-2022 Note This report has been cancelled. [facility] 09-15-2022 Note This report has been cancelled. [facility] 09-03-2022 Evaluation note Encounter Date Diagnosis [...] have been reviewed. Hospital notes from the [facility] from his prior admission on 08/18/2022 [...] years ago and was just admitted to [facility] with pneumonia a couple of weeks [...] as documented in the electronic medical record. [facility] Other 11-21-2022 NoteUT Cardiology - [facility] Subjective Arianne Mcqueen is a [...] He was resuscitated and admitted to the [facility]. His initial investigation was negative. He [...] In August 2021 he was admitted to [facility] and then transferred to [facility] due to COVID infection and large pericardial effusion. He was treated with diuretics. CTA of the chest August 2021 found effusion to be moderate and did not necessitate pericardiocentesis. He has dyspnea on exertion when walking and doing physical activity. No chest pain. He has bilateral leg swelling. He is in NYHA class II-III. He reports that he ran out of [place] over the past 5 days. Recent testing: [...] had him stop furosemi (more content not included)...[facility]09-15-2022 NotePROCEDURE: XR HIP RT 2 3V WO PELVIS HISTORY: Pain in right hip joint COMPARISON: XR pelvis 09/15/2021 FINDINGS: BONES:Complete loss of the joint space with [id number] articulation. Large periarticular degenerative osteophytes. No fracture, dislocation, bone lesion. SOFT TISSUES:No visible soft tissue swelling. EFFUSION:None visible. OTHER: Atherosclerotic disease. IMPRESSION: 1. 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 2. No appreciable acute abnormality. Electronically authenticated by: NOREEN KELLY Date: 2022-05-08 10:48[facility] NoteThe [facility] 04-23-2021 NoteThe [facility]02-18-[facility]21 NotePatient Outreach ([facility]) ARIANNE MCQUEEN ([id number]) 1945 M Date Time Provider Department 10/11/20 TERRANCE CABALLERO During your visit today, we recorded the following information about you: Allergies As of Date: 10/11/2020 (No Known Allergies) Date Reviewed: 04/21/2020 Reviewed by: Willie Sotelo - Fully Assessed Order(s):SARS-COVID VACCINE 1ST DOSE APPT [[id number]] Order #: [id number] FUTURE Prescriptions as of 10/11/2020 Sig: TRAZODONE [...] [I73.9] 08/19/2012 Letter Text Encounter Status:Closed by [employer], Strat[facility]USER on 10/15/20[facility] History general Narrative - Reported* Type Description Date Medical History diabetes mallitus Medical History HTN Surgical History knee replacement 2010 kSARIA Other Summary Purpose Family History No Family [...] section and content) DATE CREATED AUTHOR 09/01/2021 [facility] DATE CREATED AUTHOR AUTHOR'S ORGANIZ ATION 04/06/2022 [facility] DATE CREATED AUTHOR AUTHOR'S ORGANIZ ATION 11/04/2022 [facility] DATE CREATED AUTHOR AUTHOR'S ORGANIZ ATION 05/25/2023 [facility] DATE CREATED AUTHOR AUTHOR'S ORGANIZ ATION 06/07/2023 [facility] REASON FOR VISIT (unrecogniz ed section and [...] BE BASED ON THE PRIMARY CLINICAL RECORDS. [facility] [employer] provides no warranty or guarantee of the accuracy or completeness of information in this document.
== END 2023-08-20 13:48 | disposition home or self-care (01) ==
LOC: VC 13:47
PROVIDERS: PCP Radiology Diagnostic Radiology; Visit Provider Radiology Diagnostic Radiology
DX: I83.813 Varicose veins of bilateral lower extremities with pain (principal)
CPT/HCPCS: 36466

== ENCOUNTER 2023-08-31 13:51 | Outpatient (OUT) | payer OTHER, SELFPAY ==
--- OUTSIDE RECORDS SUMMARY | 2023-08-28 13:02 | XMS_ITS | CCD ---
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 Phone MAL BARNES Primary Care Unavailable PAY, ROBIN Referring Unavailable MASROOR, GUDELIA Admitting Unavailable MASROOR, GUDELIA Attending Unavailable AKANKSHA UP Surgeon Unavailable DE Procedure Practitioner Unavailab le DE Procedure Practitioner Unavailab le NORBERTRORENE, GUDELIA Surgeon [...] Admitting Unavailable MOLLY, DR MENEZES Attending Unavailable NORRIST[place], DR MENEZES Primary Care Unavailable MOLLY, DR MENEZES Consulting Unavailable ROBIN, DR NOREEN Oneill Consulting Unavailable MOUKARBEL, DR DOMINIQUE Admitting Unavailable MOUKARBEL, DR DOMINIQUE Attending Unavailable MOLLY, DR MENEZES Primary Care Unavailable MOUKARBEL, DR DOMINIQUE Consulting Unavailable MOUKARBEL, DR DOMINIQUE Admitting Unavailable MOUKARBEL, DR DOIMNIQUE Attending Unavailable MOLLY, DR MENEZES Primary Care Unavailable CLINTONDALE, DR JOHANA Alvarado Consulting Unavailable MOUKARBEL, DR [...] disease (6 sources) Atherosclerotic heart disease of [place] coronary artery without angina pectoris; Translations: [Atherosclerotic heart disease of [place] coronary artery with other forms of angina [...] Onset: 2 Chronic Other aftercare (1 source) group home (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; 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] Onset: 3 Episodic Other aftercare (1 source) group home (current) use of 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/antiplate lets; Translations: [CUSTODIAL ANTITHROMBOT/ANTIPLATLETS ] Onset: 3 Episodic Other aftercare (1 source) Other [facility] (current) drug therapy; Translations: [OTH CUSTODIAL CURRENT DRUG THERAPY] Onset: 3 Episodic Other aftercare (1 source) ocean transportation intermediary (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) use of oral hypoglycemic drugs; Translations: [CUSTODIAL USE ORAL HYPOGLYCEMIC DX] Onset: 3 Episodic [...] Range Facility Office Visiton 06-05-2023 Follow-up visit [id number] Luis M Mcqueen 1945 Date Provider Department Center 06/05/2023 CATINA ROBERTS SHILPI Santiago Family History Problem Relation Age of Onset Coronary artery disease Mother Family Status - Relation Status Age at Mother Level of Service:53284 DE OFFICE/OUTPATIENT ESTABLISHED LOW MDM 20-29 MIN Reason for Visit and Comments: Follow-up [426320] Coronary Artery Disease [187] Congestive Heart Failure [127] Normal [facility] 36on 01-21-2023 35 His blood pressures are elevated. Goal is <130/90. Would like to start him on amlodipine 5mg daily. Follow-up in clinic in 3 months. THanks Normal [facility] Office Visiton 01-06-2023 Follow-up visit [id number] Luis M Mcqueen 1945 M Date Provider Department Center 01/06/2023 ARIELLA GRAVES CARD [facility] Family History Problem Relation Age of Onset Coronary artery disease Mother Family Status - Relation Status Age at Mother Level of Service:37411 DE OFFICE/OUTPATIENT ESTABLISHED LOW MDM 20-29 MIN Reason for Visit and Comments: Coronary Artery Disease [187] Hypertension [632279] Congestive Heart Failure [127] Normal [facility] Office Visiton 10-10-2022 Follow-up visit [id number] Luis M Mcqueen jennifer Desai 1945 M Date Provider Department Center 10/10/2022 ARIELLA GRAVES CARD [facility] Family History Problem Relation Age of Onset Coronary artery disease Mother Family Status - Relation Status Age at Mother Level of Service:71368 DE OFFICE/OUTPATIENT ESTABLISHED MOD MDM 30-39 MIN Reason for Visit and Comments: Cardiac Stress Test [489] Coronary Artery Disease [187] Shortness of Breath [516356] Normal [facility] BNPon 08-20-2022 Natriuretic peptide B (Bld) [Mass/Vol] 1748.0 pg/mL Normal <=1,800.0 [facility] Comment on above: Performed By: #### P OCGLUC #### [facility] [address] [place] [address] Dr. eDidre Tijerina CBC AUTO DIFFon 08-20-2022 BASO # 0.0 103/ul Normal 0.0-0.1 [facility] Comment on above: Performed By: #### C BC #### [facility] [address] [address] [address] Deidre Tijerina Basophils/100 WBC (Bld) 0.1 % Critically low 0.2-2.0 [facility] Comment on above: Performed By: #### C BC #### [facility] [address] [address] [address] Deidre Tijerina EO # 0.0 103/ul Normal 0.0-0.7 [facility] Comment on above: Performed By: #### C BC #### [facility] [address] [address] [address] Deidre Tijerina Eosinophils/100 WBC (Bld) 0.0 % Critically low 0.9-7.0 [facility] Comment on above: Performed By: #### C BC #### [facility] [address] [place] [address] Dr. Deidre Tijerina Erythrocyte distribution width (RBC) [Ratio] 13.6 % Normal 11.0-15.0 [facility] Comment on above: Performed By: #### C BC #### [facility] [address] [place] [address] Dr. Deidre Tijerina Hematocrit (Bld) [Volume fraction] 30.1 % Critically low 42.0-54.0 [facility] Comment on above: Performed By: #### C BC #### [facility] [address] [place] [address] Dr. Deidre Tijerina Hemoglobin (Bld) [Mass/Vol] 9.8 g/dL Critically low 14.0-18.0 [facility] Comment on above: Performed By: #### C BC #### [facility] [address] [place] [address] Dr. Deidre Tijerina IG # 0.13 10e3/ul Critically high 0.00-0.03 [facility] Comment on above: Performed By: #### C BC #### [facility] [address] [place] [address] Dr. Deidre Tijerina IG % 1.0 % Critically high 0.0-0.5 [facility] [place] Comment on above: Performed By: #### C BC #### [facility] [address] [place] [address] Dr. Deidre Tijerina LYMPH # 1.2 103/ul Normal 1.2-3.8 [facility] Comment on above: Performed By: #### C BC #### [facility] [address] [place] [address] Dr. Deidre Tijerina Lymphocytes/100 WBC (Bld) 8.6 % Critically low 20.5-60.0 [facility] Comment on above: Performed By: #### C BC #### [facility] [address] [place] [address] Dr. Deidre Tijerina MANUAL DIFF REQ NO Normal [facility] [place] Comment on above: Performed By: #### C BC #### [facility] [address] [address] [address] Deidre Tijerina MCH (RBC) [Entitic mass] 30.7 pg Normal 25.9-34.0 [facility] Comment on above: Performed By: #### C BC #### [facility] [address] [place] [address] Dr. Deidre Tijerina MCHC (RBC) [Mass/Vol] 32.6 g/dL Normal 29.9-35.2 [facility] Comment on above: Performed By: #### C BC #### [facility] [address] [place] [address] Dr. Deidre Tijerina MCV (RBC) [Entitic vol] 94.4 fL Critically high 80.0-94.0 [facility] Comment on above: Performed By: #### C BC #### [facility] [address] [place] [address] Dr. Deidre Tijerina MONO # 0.8 103/ul Normal 0.3-0.8 [facility] Comment on above: Performed By: #### C BC #### [facility] [address] [place] [address] Dr. Deidre Tijerina Monocytes/100 WBC (Bld) 6.2 % Normal 1.7-12.0 [facility] Comment on above: Performed By: #### C BC #### [facility] [address] [place] [address] Dr. Deidre Tijerina NEUT # 11.3 103/ul Critically high 1.4-6.5 [facility] Comment on above: Performed By: #### C BC #### [facility] [address] [place] [address] Dr. Deidre Tijerina Neutrophils/100 WBC (Bld) 84.1 % Critically high 43.0-75.0 [facility] Comment on above: Performed By: #### C BC #### [facility] [address] [place] [address] Dr. Deidre Tijerina Platelet mean volume (Bld) [Entitic vol] 9.3 fL Critically low 9.5-13.5 [facility] Comment on above: Performed By: #### C BC #### [facility] [address] [address] [address] Deidre Tijerina PLT 204 103/ul Normal 150-450 [facility] Comment on above: Performed By: #### C BC #### [facility] [address] [address] [address] Deidre Tijerina RBC 3.19 106/ul Critically low 4.70-6.10 [facility] [place] Comment on above: Performed By: #### C BC #### [facility] [address] [address] [address] Deidre Tijerina WBC 13.5 103/ul Critically high 4.0-11.0 [facility] Comment on above: Performed By: #### C BC #### [facility] [address] [address] [address] Deidre Tijerina POINT OF CARE GLUCOSEon 07-25 Glucose [Mass/Vol] 164 mg/dL Critically high 74-106 [facility] Comment on above: Performed By: #### P OCGLUC #### [facility] [address] [address] [address] Deidre Tijerina PROF CHEM 8 (BAS METB)on Anion gap [Moles/Vol] 10.5 mmol/L Normal [facility] Comment on above: Performed By: #### P OCGLUC #### [facility] [address] [address] [address] Deidre Tijerina Calcium [Mass/Vol] 8.1 mg/dL Critically low 8.5-10.1 [facility] Comment on above: Performed By: #### P OCGLUC #### [facility] [address] [address] [address] Deidre Tijerina Chloride [Moles/Vol] 100 mmol/L Normal 98-107 [facility] Comment on above: Performed By: #### P OCGLUC #### [facility] [address] [address] [address] Deidre Tijerina CO2 [Moles/Vol] 24.4 mmol/L Normal 21.0-32.0 [facility] Comment on above: Performed By: #### P OCGLUC #### [facility] [address] [address] [address] Deidre Tijerina Creatinine [Mass/Vol] 1.17 mg/dL Normal 0.70-1.30 [facility] Comment on above: Performed By: #### P OCGLUC #### [facility] [address] [address] [address] Deidre Tijerina EGFR-AF NIGERIEN >60 Normal >=60 [facility] Comment on above: Performed By: #### P OCGLUC #### [facility] [address] [address] [address] Deidre Tijerina EGFR-NON AF NIGERIEN 60 mL/min/1.73m2 Normal >=60 [facility] Comment on above: Performed By: #### P OCGLUC #### [facility] [address] [address] [address] Deidre Tijerina Glucose [Mass/Vol] 145 mg/dL Critically high 74-106 [facility] Comment on above: Performed By: #### P OCGLUC #### [facility] [address] [address] [address] Deidre Tijerina Potassium [Moles/Vol] 3.9 mmol/L Normal 3.5-5.1 [facility] Comment on above: Performed By: #### P OCGLUC #### [facility] [address] [address] [address] Deidre Tijerina Sodium [Moles/Vol] 131 mmol/L Critically low 136-145 [facility] Comment on above: Performed By: #### P OCGLUC #### [facility] [address] [address] [address] Deidre Tijerina Urea nitrogen [Mass/Vol] 37.0 mg/dL Critically high 7.0-18.0 [facility] Comment on above: Performed By: #### P OCGLUC #### [facility] [address] [address] [address] Deidre Tijerina Urea nitrogen/Creatinine [Mass ratio] 31.6 mg/mg Normal [facility] Comment on above: Performed By: #### P OCGLUC #### [facility] [address] [place] [address] Dr. Deidre Tijerina XR CHEST 1 Von [...] ESTUARDO ABEBE Date: 2022-08-20 13:26 Normal [facility] BNPon 08-19-2022 Natriuretic peptide B (Bld) [Mass/Vol] 955.0 pg/mL Normal <=1,800.0 [facility] Comment on above: Performed By: #### C BC #### [facility] [address] [place] [address] Dr. Deidre Tijerina CBC W MANUAL DIFFon 08-19-20 22 ATYPICAL LYMPH # 0.28 103/ul Normal [facility] Comment on above: Performed By: #### P OCGLUC #### [facility] [address] [place] [address] Dr. Deidre Tijerina ATYPICAL LYMPH % 2 % Normal [facility] Comment on above: Performed By: #### P OCGLUC #### [facility] [address] [place] [address] Dr. Deidre Tijerina BAND # 0.0 103/ul Normal 0.0-0.3 [facility] Comment on above: Performed By: #### P OCGLUC #### [facility] [address] [place] [address] Dr. Deidre Tijerina BAND % 0 % Normal 0-5 [facility] Comment on above: Performed By: #### P OCGLUC #### [facility] [address] [place] [address] Dr. Deidre Tijerina BASOM # 0.00 103/ul Normal 0.00-0.10 [facility] Comment on above: Performed By: #### P OCGLUC #### [facility] [address] [place] [address] Dr. Deidre Tijerina BASOM % 0.0 % Critically low 0.2-2.0 [facility] Comment on above: Performed By: #### P OCGLUC #### [facility] [address] [address] [address] Deidre Tijerina BLAST # Normal [facility] Comment on above: Performed By: #### P OCGLUC #### [facility] [address] [address] [address] Deidre Tijerina BLAST % Normal [facility] Comment on above: Performed By: #### P OCGLUC #### [facility] [address] [place] [address] Dr. Deidre Tijerina CORRECTED WBC Normal 4.0-11.0 [facility] Comment on above: Performed By: #### P OCGLUC #### [facility] [address] [place] [address] Dr. Deidre Tijerina EOS # 0.00 103/ul Normal 0.00-0.70 [facility] Comment on above: Performed By: #### P OCGLUC #### [facility] [address] [place] [address] Dr. Deidre Tijerina EOS% 0.0 % Critically low 0.9-7.0 [facility] Comment on above: Performed By: #### P OCGLUC #### [facility] [address] [place] [address] Dr. Deidre Tijerina HCT 30.4 % Critically low 42.0-54.0 [facility] Comment on above: Performed By: #### P OCGLUC #### [facility] [address] [place] [address] Dr. Deidre Tijerina HGB 9.8 g/dl Critically low 14.0-18.0 [facility] Comment on above: Performed By: #### P OCGLUC #### [facility] [address] [place] [address] Dr. Deidre Tijerina LYMPHM # 0.43 103/ul Critically low 1.20-3.80 [facility] [place] [facility] Comment on above: Performed By: #### P OCGLUC #### [facility] [address] [address] [address] Deidre Tijerina LYMPHM% 3.0 % Critically low 20.5-60.0 [facility] Comment on above: Performed By: #### P OCGLUC #### [facility] [address] [address] [address] Deidre Tijerina MCH 30.8 pg Normal 25.9-34.0 [facility] Comment on above: Performed By: #### P OCGLUC #### [facility] [address] [address] [address] Deidre Tijerina MCHC 32.2 g/dl Normal 29.9-35.2 [facility] Comment on above: Performed By: #### P OCGLUC #### [facility] [address] [address] [address] Deidre Tijerina MCV 95.6 fL Critically high 80.0-94.0 [facility] [place] [facility] Comment on above: Performed By: #### P OCGLUC #### [facility] [address] [place] [address] Dr. Deidre Tijerina METAMYELOCYTE # Normal [facility] Comment on above: Performed By: #### P OCGLUC #### [facility] [address] [place] [address] Dr. Deidre Tijerina METAMYELOCYTE % Normal [facility] Comment on above: Performed By: #### P OCGLUC #### [facility] [address] [place] [address] Dr. Deidre Tijerina MONOM# 0.57 103/ul Normal 0.30-0.80 [facility] Comment on above: Performed By: #### P OCGLUC #### [facility] [address] [place] [address] Dr. Deidre Tijerina MONOM% 4.0 % Normal 1.7-12.0 [facility] Comment on above: Performed By: #### P OCGLUC #### [facility] [address] [address] [address] Deidre Tijerina MPV 9.1 fL Critically low 9.5-13.5 [facility] Comment on above: Performed By: #### P OCGLUC #### [facility] [address] [address] [address] Deidre Tijerina MYELOCYTE # Normal [facility] Comment on above: Performed By: #### P OCGLUC #### [facility] [address] [address] [address] Deidre Tijerina MYELOCYTE % Normal [facility] Comment on above: Performed By: #### P OCGLUC #### [facility] [address] [address] [address] Deidre Tijerina NRBC Normal [facility] Comment on above: Performed By: #### P OCGLUC #### [facility] [address] [address] [address] Deidre Tijerina PLT 188 103/ul Normal 150-450 [facility] Comment on above: Performed By: #### P OCGLUC #### [facility] [address] [address] [address] Deidre Tijerina RBC 3.18 106/ul Critically low 4.70-6.10 [facility] [place] [facility] Comment on above: Performed By: #### P OCGLUC #### [facility] [address] [address] [address] Deidre Tijerina RDW 14.0 % Normal 11.0-15.0 [facility] Comment on above: Performed By: #### P OCGLUC #### [facility] [address] [address] [address] Deidre Tijerina SEG # 12.92 103/ul Critically high 1.40-6.50 [facility] Comment on above: Performed By: #### P OCGLUC #### [facility] [address] [address] [address] Deidre Tijerina SEG % 91.0 % Critically high 43.0-75.0 [facility] [place] [facility] Comment on above: Performed By: #### P OCGLUC #### [facility] [address] [address] [address] Deidre Tijerina WBC 14.2 103/ul Critically high 4.0-11.0 [facility] Comment on above: Performed By: #### P OCGLUC #### [facility] [address] [address] [address] Deidre Tijerina POINT OF CARE GLUCOSEon 07-25 Glucose [Mass/Vol] 305 mg/dL Critically high 74-106 [facility] Comment on above: Performed By: #### P OCGLUC #### [facility] [address] [address] [address] Deidre Tijerina Glucose [Mass/Vol] 181 mg/dL Critically high -106 [facility] Comment on above: Performed By: #### C BC #### [facility] [address] [place] [address] Dr. Deidre Tijerina Glucose [Mass/Vol] 342 mg/dL Critically high -106 [facility] Comment on above: Performed By: #### P OCGLUC #### [facility] [address] [address] [address] Deidre Tijerina Glucose [Mass/Vol] 192 mg/dL Critically high -106 [facility] Comment on above: Performed By: #### P OCGLUC #### [facility] [address] [address] [address] Deidre Tijerina PROF CHEM 8 (BAS METB)on Anion gap [Moles/Vol] 10.3 mmol/L Normal [facility] Comment on above: Performed By: #### B MP, BNP #### [facility] [address] [address] [address] Deidre Tijerina Calcium [Mass/Vol] 7.9 mg/dL Critically low 8.5-10.1 [facility] Comment on above: Performed By: #### B MP, BNP #### [facility] [address] [address] [address] Deidre Tijerina Chloride [Moles/Vol] 100 mmol/L Normal 98-107 [facility] Comment on above: Performed By: #### B MP, BNP #### [facility] [address] [address] [address] Deidre Tijerina CO2 [Moles/Vol] 26.6 mmol/L Normal 21.0-32.0 [facility] Comment on above: Performed By: #### B MP, BNP #### [facility] [address] [address] [address] Deidre Tijerina Creatinine [Mass/Vol] 1.29 mg/dL Normal 0.70-1.30 [facility] Comment on above: Performed By: #### B MP, BNP #### [facility] [address] [address] [address] Deidre Tijerina EGFR-AF NIGERIEN >60 Normal >=60 [facility] Comment on above: Performed By: #### B MP, BNP #### [facility] [address] [address] [address] Deidre Tijerina EGFR-NON AF NIGERIEN 54 mL/min/1.73m2 Critically low >=60 [facility] Comment on above: Performed By: #### B MP, BNP #### [facility] [address] [address] [address] Deidre Tijerina Glucose [Mass/Vol] 190 mg/dL Critically high 74-106 [facility] Comment on above: Performed By: #### B MP, BNP #### [facility] [address] [address] [address] Deidre Tijerina Potassium [Moles/Vol] 3.9 mmol/L Normal 3.5-5.1 [facility] Comment on above: Performed By: #### B MP, BNP #### [facility] [address] [address] [address] Deidre Tijerina Sodium [Moles/Vol] 133 mmol/L Critically low 136-145 Th [facility] Comment on above: Performed By: #### B MP, BNP #### [facility] [address] [address] [address] Deidre Tijerina Urea nitrogen [Mass/Vol] 35.0 mg/dL Critically high 7.0-18.0 [facility] Comment on above: Performed By: #### B MP, BNP #### [facility] [address] [address] [address] Diedre Tijerina Urea nitrogen/Creatinine [Mass ratio] 27.1 mg/mg Normal [facility] Comment on above: Performed By: #### B MP, BNP #### [facility] [address] [address] [address] Deidre Tijerina BILIRUBIN CONJUGATED (DIRECT )on 08-18-2022 BILI, CONJUGATED 0.4 mg/dL Critically high 0.0-0.2 [facility] Comment on above: Performed By: #### P OCGLUC #### [facility] [address] [address] [address] Deidre Tijerina BLOOD GASES BTYon 08-18-2022 02 MODE BIPAP Normal [facility] Comment on above: Performed By: #### P OCGLUC #### [facility] [address] [place] [address] Dr. Deidre Tijerina ALLENS TEST Positive [facility] Comment on above: Performed By: #### P OCGLUC #### [facility] [address] [address] [address] Deidre Tijerina Base excess Calc (Bld) [Moles/Vol] 1.0 mmol/L Normal -2.0-2.0 [facility] Comment on above: Performed By: #### P OCGLUC #### [facility] [address] [address] [address] Deidre Tijerina BIPAP PRESSURE 16/8 Normal [facility] Comment on above: Performed By: #### P OCGLUC #### [facility] [address] [address] [address] Deidre Tijerina CPAP Normal [facility] Comment on above: Performed By: #### P OCGLUC #### [facility] [address] [place] [address] Dr. Deidre Tijerina FIO2 35.00 % [facility] Comment on above: Performed By: #### P OCGLUC #### [facility] [address] [address] [address] Deidre Tijerina HCO3 (Bld) [Moles/Vol] 25.0 mmol/L Normal 22.0-26.0 [facility] Comment on above: Performed By: #### P OCGLUC #### [facility] [address] [place] [address] Dr. Deidre Tijerina LPM [facility] Comment on above: Performed By: #### P OCGLUC #### [facility] [address] [address] [address] Deidre Tijerina MINUTE VOLUME 21 L Normal [facility] Comment on above: Performed By: #### P OCGLUC #### [facility] [address] [place] [address] Dr. Deidre Tijerina Oxygen (Bld) [Partial pressure] 83.4 mm[Hg] Normal 80.0-100.0 [facility] Comment on above: Performed By: #### P OCGLUC #### [facility] [address] [place] [address] Dr. Deidre Tijerina Oxygen saturation in Blood 97.5 % Normal 95.0-100.0 [facility] Comment on above: Performed By: #### P OCGLUC #### [facility] [address] [place] [address] Dr. Deidre Tijerina PCO2 36.2 mmHg Normal 35.0-45.0 [facility] Comment on above: Performed By: #### P OCGLUC #### [facility] [address] [place] [address] Dr. Deidre Tijerina PEEP 8 [facility] Comment on above: Performed By: #### P OCGLUC #### [facility] [address] [place] [address] Dr. Deidre Tijerina pH (Bld) 7.440 [pH] Normal 7.350-7.450 [facility] Comment on above: Performed By: #### P OCGLUC #### [facility] [address] [place] [address] Dr. Deidre Tijerina PIP 17 Normal [facility] Comment on above: Performed By: #### P OCGLUC #### [facility] [address] [place] [address] Dr. Deidre Tijerina PS 8 Normal [facility] Comment on above: Performed By: #### P OCGLUC #### [facility] [address] [place] [address] Dr. Deidre Tijerina PUNCTURE SITE RR Normal [facility] Comment on above: Performed By: #### P OCGLUC #### [facility] [address] [place] [address] Dr. Deidre Tijerina RATE 14 bpm [facility] Comment on above: Performed By: #### P OCGLUC #### [facility] [address] [place] [address] Dr. Deidre Tijerina VENT MODE [facility] Comment on above: Performed By: #### P OCGLUC #### [facility] [address] [place] [address] Dr. Deidre Tijerina VT 945 ML [facility] Comment on above: Performed By: #### P OCGLUC #### [facility] [address] [place] [address] Dr. Deidre Tijerina BNPon 08-18-2022 Natriuretic peptide B (Bld) [Mass/Vol] 2561.0 pg/mL Critically high <=1,800.0 [facility] Comment on above: Performed By: #### P OCGLUC #### [facility] [address] [place] [address] Dr. Deidre Tijerina CBC W MANUAL DIFFon 08-18-20 ANISOCYTOSIS 1+ [facility] Comment on above: Performed By: #### C BCMAN #### [facility] [address] [place] [address] Dr. Deidre Tijerina ATYPICAL LYMPH # Normal [facility] Comment on above: Performed By: #### C BCMAN #### [facility] [address] [place] [address] Dr. Deidre Tijerina ATYPICAL LYMPH % Normal [facility] Comment on above: Performed By: #### C BCMAN #### [facility] [address] [place] [address] Dr. Deidre Tijerina BAND # 1.2 103/ul Critically high 0.0-0.3 [facility] [place] Comment on above: Performed By: #### C BCMAN #### [facility] [address] [address] [address] Deidre Tijerina BAND % 7 % Critically high 0-5 [facility] [place] Comment on above: Performed By: #### C BCMAN #### [facility] [address] [address] [address] Deidre Tijerina BASOM # 0.00 103/ul Normal 0.00-0.10 [facility] Comment on above: Performed By: #### C BCMAN #### [facility] [address] [address] [address] Deidre Tijerina BASOM % 0.0 % Critically low 0.2-2.0 [facility] Comment on above: Performed By: #### C BCNICOLASA #### [facility] [address] [place] [address] Dr. Deidre Tijerina BLAST # Normal [facility] Comment on above: Performed By: #### C BCNICOLASA #### [facility] [address] [place] [address] Dr. Deidre Tijerina BLAST % Normal [facility] Comment on above: Performed By: #### C BCNICOLASA #### [facility] [address] [place] [address] Dr. Deidre Tijerina CORRECTED WBC Normal 4.0-11.0 [facility] Comment on above: Performed By: #### C BCNICOLASA #### [facility] [address] [place] [address] Dr. Deidre Tijerina EOS # 0.17 103/ul Normal 0.00-0.70 [facility] Comment on above: Performed By: #### C BCNICOLASA #### [facility] [address] [place] [address] Dr. Deidre Tijerina EOS% 1.0 % Normal 0.9-7.0 [facility] Comment on above: Performed By: #### C BCNICOLASA #### [facility] [address] [place] [address] Dr. Deidre Tijerina HCT 34.8 % Critically low 42.0-54.0 [facility] Comment on above: Performed By: #### C BCMAN #### [facility] [address] [place] [address] Dr. Deidre Tijerina HGB 11.5 g/dl Critically low 14.0-18.0 [facility] Comment on above: Performed By: #### C BCMAN #### [facility] [address] [address] [address] Deidre Tijerina LYMPHM # 1.20 103/ul Normal 1.20-3.80 [facility] Comment on above: Performed By: #### C BCMAN #### [facility] [address] [place] [address] Dr. Deidre Tijerina LYMPHM% 7.0 % Critically low 20.5-60.0 [facility] Comment on above: Performed By: #### C BCNICOLASA #### [facility] [address] [place] [address] Dr. Deidre Tijerina MCH 31.5 pg Normal 25.9-34.0 [facility] Comment on above: Performed By: #### C BCNICOLASA #### [facility] [address] [place] [address] Dr. Dedire Tijerina MCHC 33.0 g/dl Normal 29.9-35.2 [facility] Comment on above: Performed By: #### C BCNICOLASA #### [facility] [address] [place] [address] Dr. Deidre Tijerina MCV 95.3 fL Critically high 80.0-94.0 [facility] [place] Comment on above: Performed By: #### C BCMAN #### [facility] [address] [place] [address] Dr. Deidre Tijerina METAMYELOCYTE # Normal [facility] Comment on above: Performed By: #### C BCMAN #### [facility] [address] [place] [address] Dr. Deidre Tijerina METAMYELOCYTE % Normal [facility] [place] Comment on above: Performed By: #### C BCMAN #### [facility] [address] [address] [address] Deidre Tijerina MONOM# 1.03 103/ul Critically high 0.30-0.80 [facility] Comment on above: Performed By: #### C ADALGISA #### [facility] [address] [place] [address] Dr. Deidre Tijerina MONOM% 6.0 % Normal 1.7-12.0 [facility] Comment on above: Performed By: #### C ADALGISA #### [facility] [address] [place] [address] Dr. Deidre Tijerina MPV 8.7 fL Critically low 9.5-13.5 [facility] Comment on above: Performed By: #### C ADALGISA #### [facility] [address] [place] [address] Dr. Deidre Tijerina MYELOCYTE # Normal [facility] Comment on above: Performed By: #### C ADALGISA #### [facility] [address] [place] [address] Dr. Deidre Tijerina MYELOCYTE % Normal [facility] Comment on above: Performed By: #### C ADALGISA #### [facility] [address] [place] [address] Dr. Deidre Tijerina NRBC Normal [facility] Comment on above: Performed By: #### C ADALGISA #### [facility] [address] [place] [address] Dr. Deidre Tijerina PLT 212 103/ul Normal 150-450 [facility] Comment on above: Performed By: #### C ADALGISA #### [facility] [address] [place] [address] Dr. Deidre Tijerina RBC 3.65 106/ul Critically low 4.70-6.10 [facility] Comment on above: Performed By: #### C ADALGISA #### [facility] [address] [place] [address] Dr. Deidre Tijerina RDW 14.0 % Normal 11.0-15.0 [facility] Comment on above: Performed By: #### C ADALGISA #### [facility] [address] [place] [address] Dr. Deidre Tijerina SEG # 13.59 103/ul Critically high 1.40-6.50 [facility] Comment on above: Performed By: #### C ADALGISA #### [facility] [address] [address] [address] Deidre Tijerina SEG % 79.0 % Critically high 43.0-75.0 [facility] [place] Comment on above: Performed By: #### C ADALGISA #### [facility] [address] [address] [address] Deidre Tijerina WBC 17.2 103/ul Critically high 4.0-11.0 [facility] Comment on above: Performed By: #### C ADALGISA #### [facility] [address] CHEST WO CONon [...] by: NOREEN KELLY Date: 2022-08-18 12:12 Normal [facility] CULTURE BLOODon 08-18-2022 Microscopic examination of blood, culture Culture Observations: NO GROWTH AT 5 DAYS. Normal [facility] Comment on above: Performed By: #### C BONILLA #### [facility] [address] [address] [address] Deidre Tijerina Microscopic examination of blood, culture Culture Observations: NO GROWTH AT 5 DAYS. Normal [facility] Comment on above: Performed By: #### C BC #### [facility] [address] [place], [place] [address] Dr. Deidre Tijerina Covid-19 PCR ([facility])on 07-25 SARS-CoV-2 (COVID-19) RNA ISA+probe Ql (Unsp spec) Not detected Normal NOT DETECTED [facility] Comment on above: Result Comment: When diagnostic [...] for this test is supported by the [employer] Professor of Health and Human Service's declaration that [...] used). Performed By: #### P OCGLUC #### [facility] [address] [place], [place] [address] Dr. Deidre Tijerina ECHO LIMITED STUDYon 022 ECHO LIMITED STUDY Patient: UMM MCQUEEN Exam Date: 08/18/2022 : 1945 Gender:M Ordering : SHAIKH Zay CARRERA . Admission #: [id number] Family : Order #: [id number] CLICK HERE TO VIEW EXAM ECHOCARDIOGRAM REPORT [...] Pressure: 76.59 ml, 76.59 ml Dictated by: Arilela Leonard M.D. on 08/26/2022 at 08:57 Approved by: Ariella Leonard M.D. on 08/26/2022 at 09:00 Normal [facility] INFLUENZA A AND B AGon 08-18 INFLUANEGH SEE BELOW Normal [facility] Comment on above: Result Comment: Nega tive for Flu A protein angiten. Infection due to Flu A cannot be ruled out. Flu A angiten in the sample may be below the detection limit of the test. Performed By: #### P OCGLUC #### [facility] [address] [facility] SEE BELOW Normal [facility] Comment on above: Result Comment: Nega tive for Flu B protein antigen. Infection due to Flu B cannot be ruled out. Flu B antigen in the sample may be below the detection limit of the test. Performed By: #### P OCGLUC #### [facility] [address] [address] [address] Deidre Tijerina INFLUENZA A AG Negative Normal NEGATIVE SEE COMMENT [facility] Comment on above: Performed By: #### P OCGLUC #### [facility] [address] [address] [address] Deidre Tijerina INFLUENZA B AG Negative Normal NEGATIVE SEE COMMENT [facility] Comment on above: Performed By: #### P OCGLUC #### [facility] [address] [place] [address] Dr. Deidre Tijerina INTERNAL CONTROLS Within Normal Limits Normal Wi thin Normal Limits [facility] Comment on above: Performed By: #### P OCGLUC #### [facility] [address] [place] [address] Dr. Deidre Tijerina LACTATE/LACTIC ACIDon 2021 Lactate [Moles/Vol] 2.0 mmol/L Critically high 0.4-1.9 [facility] Comment on above: Performed By: #### P OCGLUC #### [facility] [address] [place] [address] Dr. Deidre Tijerina Lactate [Moles/Vol] 2.0 mmol/L Critically high 0.4-1.9 [facility] Comment on above: Performed By: #### P OCGLUC #### [facility] [address] [place] [address] Dr. Deidre Tijerina POINT OF CARE GLUCOSEon 07-25 Glucose [Mass/Vol] 228 mg/dL Critically high 74-106 [facility] Comment on above: Performed By: #### P OCGLUC #### [facility] [address] [address] [address] Deidre Tijerina Glucose [Mass/Vol] 119 mg/dL Critically high 74-106 [facility] Comment on above: Performed By: #### P OCGLUC #### [facility] [address] [address] [address] Deidre Tijerina Glucose [Mass/Vol] 161 mg/dL Critically high 74-106 [facility] Comment on above: Performed By: #### C BC #### [facility] [address] [address] [address] Deidre Tijerina PROF 14(COMP METB)on 022 Albumin [Mass/Vol] 2.9 g/dL Critically low 3.4-5.0 [facility] Comment on above: Performed By: #### P OCGLUC #### [facility] [address] [place] [address] Dr. Deidre Tijerina Albumin/Globulin [Mass ratio] 0.6 {ratio} Normal [facility] Comment on above: Performed By: #### P OCGLUC #### [facility] [address] [address] [address] Deidre Tijerina ALP [Catalytic activity/Vol] 71 U/L Normal 46-116 [facility] Comment on above: Performed By: #### P OCGLUC #### [facility] [address] [address] [address] Deidre Tijerina ALT [Catalytic activity/Vol] 13 U/L Critically low 16-63 [facility] Comment on above: Performed By: #### P OCGLUC #### [facility] [address] [address] [address] Deidre Tijerina Anion gap [Moles/Vol] 12.3 mmol/L Normal [facility] Comment on above: Performed By: #### P OCGLUC #### [facility] [address] [address] [address] Deidre Tijerina AST [Catalytic activity/Vol] 14 U/L Critically low 15-37 [facility] Comment on above: Performed By: #### P OCGLUC #### [facility] [address] [place] [address] Dr. Deidre Tijerina Bilirubin [Mass/Vol] 2.6 mg/dL Critically high 0.2-1.0 [facility] Comment on above: Performed By: #### P OCGLUC #### [facility] [address] [address] [address] Deidre Tijerina Calcium [Mass/Vol] 8.5 mg/dL Normal 8.5-10.1 [facility] Comment on above: Performed By: #### P OCGLUC #### [facility] [address] [address] [address] Deidre Tijerina Chloride [Moles/Vol] 98 mmol/L Normal 98-107 [facility] Comment on above: Performed By: #### P OCGLUC #### [facility] [address] [address] [address] Deidre Tijerina CO2 [Moles/Vol] 26.0 mmol/L Normal 21.0-32.0 [facility] Comment on above: Performed By: #### P OCGLUC #### [facility] [address] [address] [address] Deidre Tijerina Creatinine [Mass/Vol] 1.43 mg/dL Critically high 0.70-1.30 [facility] Comment on above: Performed By: #### P OCGLUC #### [facility] [address] [address] [address] Deidre Tijerina EGFR-AF NIGERIEN 58 mL/min/1.73m2 Critically low >=60 [facility] Comment on above: Performed By: #### P OCGLUC #### [facility] [address] [address] [address] Deidre Tijerina EGFR-NON AF NIGERIEN 48 mL/min/1.73m2 Critically low >=60 [facility] Comment on above: Performed By: #### P OCGLUC #### [facility] [address] [address] [address] Deidre Tijerina Globulin (S) [Mass/Vol] 5.0 g/dL Normal [facility] Comment on above: Performed By: #### P OCGLUC #### [facility] [address] [address] [address] Deidre Tijerina Glucose [Mass/Vol] 165 mg/dL Critically high 74-106 [facility] Comment on above: Performed By: #### P OCGLUC #### [facility] [address] [address] [address] Deidre Tijerina Potassium [Moles/Vol] 4.3 mmol/L Normal 3.5-5.1 [facility] Comment on above: Performed By: #### P OCGLUC #### [facility] [address] [address] [address] Deidre Tijerina Protein [Mass/Vol] 7.9 g/dL Normal 6.4-8.2 [facility] Comment on above: Performed By: #### P OCGLUC #### [facility] [address] [address] [address] Deidre Tijerina Sodium [Moles/Vol] 132 mmol/L Critically low 136-145 [facility] Comment on above: Performed By: #### P OCGLUC #### [facility] [address] [address] [address] Deidre Tijerina Urea nitrogen [Mass/Vol] 25.0 mg/dL Critically high 7.0-18.0 [facility] Comment on above: Performed By: #### P OCGLUC #### [facility] [address] [address] [address] Deidre Tijerina Urea nitrogen/Creatinine [Mass ratio] 17.5 mg/mg Normal [facility] Comment on above: Performed By: #### P OCGLUC #### [facility] [address] [address] [address] Deidre Tijerina TROPONIN, HIGH SENSITIVITYon 08-18-2022 HSTROP 8.4 pg/mL Normal 4.0-76.1 [facility] Comment on above: Result Comment: CUT- OFF POINTS HAVE BEEN ESTABLISHED BASED ON THE FOURTH UNIVERSAL DEFINITIONS OF MYOCARDIAL INFARCTION. THE UPPER REFERENCE LIMIT (URL) OF TROPONIN, DEFINED THE 99TH PERCENTILE OF cTnI DISTRIBUTION IN A REFERENCE POPULATION, HAS BEEN CONFIRMED THE DECISION THRESHOLD FOR GA DIAGNOSIS. Performed By: #### P OCGLUC #### [facility] [address] [address] [address] Deidre Tijerina XR CHEST 1 Von [...] left costophrenic angle is excluded from the [id number]. 3. No overt edema, failure, pneumothorax, or sizable effusion noted within limits of study. 4. Old healed nondisplaced anterior right fifth rib fracture deformity faintly suggested. Electronically authenticated by: ESTUARDO ABEBE Date: 2022-08-18 09:37 Normal [facility] STRESS/REST MULTIon 08-04 PR STRESS/REST MULTI Patient: ARIANNE MCQUEEN Exam Date: 08/04/2022 : 1945 Gender:M Ordering : DR CATINA SALAZAR M.D. Admission #: [id number] Family : Order #: [id number] CLICK HERE TO VIEW EXAM RADIOLOGY REPORT [...] Banks MD on 08/07/2022 at 08:29 Normal [facility] BNPon 07-14-2022 Natriuretic peptide B (Bld) [Mass/Vol] 164.0 pg/mL Normal <=1,800.0 [facility] Comment on above: Performed By: #### B EMBROIDERER, BMP #### [facility] [address] [place] [address] Dr. Deidre Tijerina Follow-Upon 07-14-2022 Follow-Up [id number] Luis M Mcqueen jennifer Desai 1945 M Date Provider Department Center 07/14/2022 CATINA ROBERTS [facility] Family History Problem Relation Age of Onset Coronary artery disease Mother Family Status - Relation Status Age at Mother Level of Service:68559 DE OFFICE/OUTPATIENT ESTABLISHED MOD MDM 30-39 MIN Reason for Visit and Comments: Coronary Artery Disease [187] Hypertension [424254] Hyperlipidemia [182] Normal [facility] PROF CHEM 8 (BAS METB)on Anion gap [Moles/Vol] 9.2 mmol/L Normal [facility] Comment on above: Performed By: #### B EMBROIDERER, BMP #### [facility] [address] [place] [address] Dr. Deidre Tijerina Calcium [Mass/Vol] 8.4 mg/dL Critically low 8.5-10.1 [facility] Comment on above: Performed By: #### B EMBROIDERER, BMP #### [facility] [address] [place] [address] Dr. Deidre Tijerina Chloride [Moles/Vol] 106 mmol/L Normal 98-107 [facility] Comment on above: Performed By: #### B EMBROIDERER, BMP #### [facility] [address] [place] [address] Dr. Deidre Tijerina CO2 [Moles/Vol] 27.0 mmol/L Normal 21.0-32.0 [facility] Comment on above: Performed By: #### B EMBROIDERER, BMP #### [facility] [address] [address] [address] Deidre Tijerina Creatinine [Mass/Vol] 1.38 mg/dL Critically high 0.70-1.30 [facility] Comment on above: Performed By: #### B EMBROIDERER, BMP #### [facility] [address] [address] [address] Deidre Tijerina EGFR-AF NIGERIEN =60 Normal >=60 [facility] Comment on above: Performed By: #### B EMBROIDERER, BMP #### [facility] [address] [place] [address] Dr. Deidre Tijerina EGFR-NON AF NIGERIEN 50 mL/min/1.73m2 Critically low >=60 [facility] Comment on above: Performed By: #### B EMBROIDERER, BMP #### [facility] [address] [place] [address] Dr. Deidre Tijerina Glucose [Mass/Vol] 95 mg/dL Normal 74-106 [facility] Comment on above: Performed By: #### B EMBROIDERER, BMP #### [facility] [address] [place] [address] Dr. Deidre Tijerina Potassium [Moles/Vol] 5.2 mmol/L Critically high 3.5-5.1 [facility] Comment on above: Performed By: #### B EMBROIDERER, BMP #### [facility] [address] [place] [address] Dr. Deidre Tijerina Sodium [Moles/Vol] 137 mmol/L Normal 136-145 [facility] Comment on above: Performed By: #### B EMBROIDERER, BMP #### [facility] [address] [address] [address] Deidre Tijerina Urea nitrogen [Mass/Vol] 25.0 mg/dL Critically high 7.0-18.0 [facility] Comment on above: Performed By: #### B EMBROIDERER, BMP #### [facility] [address] [place], [place] [address] Dr. Deidre Tijerina Urea nitrogen/Creatinine [Mass ratio] 18.1 mg/mg Normal [facility] Comment on above: Performed By: #### B CUAUHTEMOC, CLEMENCIA #### [facility] [id number] Deidre Tijerina ECHOCARDIO M/2D COMPLETEon 0 05-08-2022 ECHOCARDIO M/2D COMPLETE Patient: ARIANNE MCQUEEN Exam Date: 05/08/2022 : 1945 Gender:M Ordering : DR CATINA SALAZAR M.D. Admission #: [id number] Family : DR MAL BARNES D.O. Order #: [id number] CLICK HERE TO VIEW EXAM ECHOCARDIOGRAM REPORT [...] Salazar M.D. on 05/09/2022 at 19:48 Normal [facility] [facility] LSPINE MIN 4 VIEWSon 04-24 XR [...] NOREEN KELLY Date: 2022-05-08 10:47 Normal [facility] PROF CHEM 8 (BAS METB)on Anion gap [Moles/Vol] 6.8 mmol/L Normal [facility] Comment on above: Performed By: #### P OCGLUC #### [facility] [address] [address] [address] Deidre Tijerina Calcium [Mass/Vol] 8.8 mg/dL Normal 8.5-10.1 [facility] Comment on above: Performed By: #### P OCGLUC #### [facility] [address] [address] [address] Deidre Tijerina Chloride [Moles/Vol] 102 mmol/L Normal 98-107 [facility] Comment on above: Performed By: #### P OCGLUC #### [facility] [address] [address] [address] Deidre Tijerina CO2 [Moles/Vol] 28.1 mmol/L Normal 21.0-32.0 [facility] Comment on above: Performed By: #### P OCGLUC #### [facility] [address] [address] [address] Deidre Tijerina Creatinine [Mass/Vol] 1.84 mg/dL Critically high 0.70-1.30 [facility] Comment on above: Performed By: #### P OCGLUC #### [facility] [address] [address] [address] Deidre Tijerina EGFR-AF NIGERIEN 43 mL/min/1.73m2 Critically low >=60 [facility] Comment on above: Performed By: #### P OCGLUC #### [facility] [address] [address] [address] Deidre Tijerina EGFR-NON AF NIGERIEN 36 mL/min/1.73m2 Critically low >=60 [facility] Comment on above: Performed By: #### P OCGLUC #### [facility] [address] [address] [address] Deidre Tijerina Glucose [Mass/Vol] 112 mg/dL Critically high 74-106 T [facility] Comment on above: Performed By: #### P OCGLUC #### [facility] [address] [address] [address] Deidre Tijerina Potassium [Moles/Vol] 4.9 mmol/L Normal 3.5-5.1 [facility] Comment on above: Performed By: #### P OCGLUC #### [facility] [address] [address] [address] Deidre Tijerina Sodium [Moles/Vol] 132 mmol/L Critically low 136-145 Th [facility] Comment on above: Performed By: #### P OCGLUC #### [facility] [address] [address] [address] Deidre Tijerina Urea nitrogen [Mass/Vol] 40.0 mg/dL Critically high 7.0-18.0 [facility] Comment on above: Performed By: #### P OCGLUC #### [facility] [address] [address] [address] Deidre Tijerina Urea nitrogen/Creatinine [Mass ratio] 21.7 mg/mg Normal [facility] Comment on above: Performed By: #### P OCGLUC #### [facility] [address] [address] [address] Deidre Tijerina PROF CHEM 8 (BAS METB)on 08- 22-2022 Anion gap [Moles/Vol] 8.9 mmol/L Normal [facility] Comment on above: Performed By: #### B MP #### [facility] [address] [place] [address] Dr. Deidre Tijerina Calcium [Mass/Vol] 8.4 mg/dL Critically low 8.5-10.1 Th e [facility] Comment on above: Performed By: #### B MP #### [facility] [address] [address] [address] Deidre Tijerina Chloride [Moles/Vol] 102 mmol/L Normal 98-107 [facility] Comment on above: Performed By: #### B MP #### [facility] [address] [place] [address] Dr. Deidre Tijerina CO2 [Moles/Vol] 25.9 mmol/L Normal 21.0-32.0 [facility] Comment on above: Performed By: #### B MP #### [facility] [address] [place] [address] Dr. Deidre Tijerina Creatinine [Mass/Vol] 1.20 mg/dL Normal 0.70-1.30 [facility] Comment on above: Performed By: #### B MP #### [facility] [address] [place] [address] Dr. Deidre Tijerina EGFR-AF NIGERIEN >60 Normal >=60 [facility] Comment on above: Performed By: #### B MP #### [facility] [address] [place] [address] Dr. Deidre Tijerina EGFR-NON AF NIGERIEN 59 mL/min/1.73m2 Critically low >=60 [facility] Comment on above: Performed By: #### B MP #### [facility] [address] [address] [address] Deidre Tijerina Glucose [Mass/Vol] 117 mg/dL Critically high 74-106 T [facility] Comment on above: Performed By: #### B MP #### [facility] [address] [place] [address] Dr. Deidre Tijerina Potassium [Moles/Vol] 4.8 mmol/L Normal 3.5-5.1 [facility] Comment on above: Performed By: #### B MP #### [facility] [address] [place], [place] [address] Dr. Deidre Tijerina Sodium [Moles/Vol] 132 mmol/L Critically low 136-145 Th [facility] Comment on above: Performed By: #### B MP #### [facility] [address] [place], [place] [address] Dr. Deidre Tijerina Urea nitrogen [Mass/Vol] 25.0 mg/dL Critically high 7.0-18.0 [facility] Comment on above: Performed By: #### B MP #### [facility] [address] [place], [place] [address] Dr. Deidre Tijerina Urea nitrogen/Creatinine [Mass ratio] 20.8 mg/mg Normal [facility] Comment on above: Performed By: #### B MP #### [facility] [address] [place], [place] [address] Dr. Deidre Tijerina US CHESTon 08-05-2021 US CHEST Normal [facility] Comment on above: Order Comment: serom a in the chest needs a drain placed BASIC METABOLIC PANELon 05-24 Calcium [Mass/Vol] 8.4 mg/dL Low 8.6-10.3 [facility] Comment on above: Order Comment: this is not a nurse draw. lab draw pleaseNo: Do not add to previous draw Performed By: #### 0 0071 ####[facility] [place] [address], [facility] Chloride [Moles/Vol] 102 mmol/L Normal 98-107 [facility] Comment on above: Order Comment: this is not a nurse draw. lab draw pleaseNo: Do not add to previous draw Performed By: #### 0 0071 ####[facility] [place] [address], [facility] CO2 [Moles/Vol] 25 mmol/L Normal 21-31 The [facility] Comment on above: Order Comment: this is not a nurse draw. lab draw pleaseNo: Do not add to previous draw Performed By: #### 0 0071 ####[facility] [place] [address], [facility] Creatinine [Mass/Vol] 2.56 mg/dL High 0.70-1.30 [facility] Comment on above: Order Comment: this is not a nurse draw. lab draw pleaseNo: Do not add to previous draw Performed By: #### 0 0071 ####[facility] [place] [address], [facility] eGFR- 30 ml/min/1.73sq m Abnormal >60 [facility] Comment on above: Order Comment: this is not a nurse draw. lab draw pleaseNo: Do not add to previous draw Result Comment: Calc ulation may not be valid for patients over 70 years Performed By: #### 0 0071 ####[address] [place] [address], [facility] eGFR- non- 24 ml/min/1.73sq m Abnormal >60 [facility] Comment on above: Order Comment: this is not a nurse draw. lab draw pleaseNo: Do not add to previous draw Result Comment: Calc ulation may not be valid for patients over 70 years Performed By: #### 0 0071 ####[address] [place] [address], [facility] Glucose [Mass/Vol] 182 mg/dL High 70-100 [facility] Comment on above: Order Comment: this is not a nurse draw. lab draw pleaseNo: Do not add to previous draw Performed By: #### 0 0071 ####[address] [place] [address], [facility] Potassium [Moles/Vol] 4.5 mmol/L Normal 3.5-5.1 [facility] Comment on above: Order Comment: this is not a nurse draw. lab draw pleaseNo: Do not add to previous draw Performed By: #### 0 0071 ####[facility] [place] [address], [facility] Sodium [Moles/Vol] 133 mmol/L Low 136-145 [facility] Comment on above: Order Comment: this is not a nurse draw. lab draw pleaseNo: Do not add to previous draw Performed By: #### 0 0071 ####[facility] [place] [address], [facility] Urea nitrogen [Mass/Vol] 28 mg/dL High 7-25 [facility] Comment on above: Order Comment: this is not a nurse draw. lab draw pleaseNo: Do not add to previous draw Performed By: #### 0 0071 ####[facility] [place] [address], [facility] POC GLUCOSE LABon 06-02-2021 Glucose [Mass/Vol] 246 mg/dL High 70-100 [facility] Comment on above: Performed By: #### 8 5499 ####[facility] [place] [address], [facility] Glucose [Mass/Vol] 109 mg/dL High 70-100 [facility] Comment on above: Performed By: #### 8 5499 ####[facility] [place] [address], [facility] POC SARS COV2 ANTIGEN NEGATI VEon 06-02-2021 POC SARS COV2 ANTIGEN NEG Negative Normal NEGATIVE [facility] Comment on above: Result Comment: Nega tive [...] forthe qualitative detection of nucleocapsid protein antigen [id number] in direct nasal swabs from individuals within [...] Certificate ofAccreditation. Performed By: #### 3 1976 ####[id number] POC SARS COV2 ANTIGEN NEG Negative Normal NEGATIVE [facility] Comment on above: Result Comment: Nega tive [...] of clinicalsigns and symptoms consistent with COVID-19.The [employer] COVID-19 Ag Card is a lateral flow immunoassay intended forthe qualitative detection of nucleocapsid protein antigen [id number] in direct nasal swabs from individuals within [...] Performed By: #### 3 1976 ####[facility] [place] [address], [facility] POC GLUCOSE LABon 06-01-2021 Glucose [Mass/Vol] 142 mg/dL High 70-100 [facility] Comment on above: Performed By: #### 8 [id number] ####[facility] [place] [address], [facility] Glucose [Mass/Vol] 132 mg/dL High 70-100 [facility] Comment on above: Performed By: #### 8 5499 ####[facility] [place] [address], [facility] Glucose [Mass/Vol] 167 mg/dL High 70-100 [facility] Comment on above: Performed By: #### 8 5499 ####[facility] [facility].[address] Glucose [Mass/Vol] 113 mg/dL High 70-100 [facility] Comment on above: Performed By: #### 8 5499 ####[facility] APTTon 05-31-2021 aPTT Coag (Bld) [Time] 29.3 s Normal 25.0-35.0 [facility] Comment on above: Result Comment: ALL RESULTS [...] THIS PURPOSE. Performed By: #### 5 7307, [id number] ####[facility] [facility].[address] CBC W/DIFFon 05-31-2021 ABS IMM GRANS 0.1 10*3/uL Normal 0.0-0.2 The [facility] Comment on above: Order Comment: No: D o not add to previous draw Performed By: #### 5 0103 ####[facility] [place] [address], [facility] ABS NEUTROPHILS 4.9 10*3/uL Normal 1.6-7.6 The [facility] Comment on above: Order Comment: No: D o not add to previous draw Performed By: #### 5 0103 ####[facility] [place] [address], [facility] Basophils (Bld) [#/Vol] 0.1 10*3/uL Normal 0.0-0.2 [facility] Comment on above: Order Comment: No: D o not add to previous draw Performed By: #### 5 0103 ####[facility] [place] [address], [facility] Basophils/100 WBC (Bld) 0.6 % Normal 0.0-1.0 [facility] Comment on above: Order Comment: No: D o not add to previous draw Performed By: #### 5 0103 ####[facility] [place] [address], [facility] Eosinophils (Bld) [#/Vol] 0.4 10*3/uL Normal 0.0-0.5 [facility] Comment on above: Order Comment: No: D o not add to previous draw Performed By: #### 5 3 ####[facility] [place] [address], [facility] Eosinophils/100 WBC (Bld) 5.3 % Normal 0.0-6.0 [facility] Comment on above: Order Comment: No: D o not add to previous draw Performed By: #### 5 0103 ####[facility] [place] [address], [facility] Erythrocyte distribution width (RBC) [Ratio] 15.7 % High 11.5-15.0 [facility] Comment on above: Order Comment: No: D o not add to previous draw Performed By: #### 5 0103 ####[facility] [facility].[address] Hematocrit (Bld) [Volume fraction] 27.6 % Low 39.0-50.0 [facility] Comment on above: Order Comment: No: D o not add to previous draw Performed By: #### 3 ####[facility] [place] [address], [facility] Hemoglobin (Bld) [Mass/Vol] 8.5 g/dL Low 13.0-17.0 [facility] Comment on above: Order Comment: No: D o not add to previous draw Performed By: #### 102 ####[facility] IMMATURE GRANS 1.1 % High 0.0-1.0 The [facility] Comment on above: Order Comment: No: D o not add to previous draw Performed By: #### 102 ####[facility] Lymphocytes (Bld) [#/Vol] 1.7 10*3/uL Normal 1.2-4.0 [facility] Comment on above: Order Comment: No: D o not add to previous draw Performed By: #### 102 ####[facility] Lymphocytes/100 WBC (Bld) 21.4 % Normal 20.0-45.0 [facility] Comment on above: Order Comment: No: D o not add to previous draw Performed By: #### 5 3 ####[facility] [place] [address], [facility] MCH (RBC) [Entitic mass] 29.2 pg Normal 27.0-33.0 [facility] Comment on above: Order Comment: No: D o not add to previous draw Performed By: #### 5 3 ####[facility] MCHC (RBC) [Mass/Vol] 30.8 g/dL Low 32.0-35.0 [facility] Comment on above: Order Comment: No: D o not add to previous draw Performed By: #### 5 0103 ####[facility] MCV (RBC) [Entitic vol] 94.8 fL Normal 82.0-98.0 [facility] Comment on above: Order Comment: No: D o not add to previous draw Performed By: #### 5 0103 ####[facility] Monocytes (Bld) [#/Vol] 0.8 10*3/uL Normal 0.1-1.0 [facility] Comment on above: Order Comment: No: D o not add to previous draw Performed By: #### 5 0103 ####[facility] MONOS 9.7 % Normal 5.0-12.0 [facility] Comment on above: Order Comment: No: D o not add to previous draw Performed By: #### 5 3 ####[facility] Neutrophils/100 WBC (Bld) 61.9 % Normal 40.0-72.0 [facility] Comment on above: Order Comment: No: D o not add to previous draw Performed By: #### 5 0103 ####[facility] [place] [address], [facility] Nucleated RBC/100 WBC (Bld) [Ratio] 0 % Normal 0-0 [facility] Comment on above: Order Comment: No: D o not add to previous draw Performed By: #### 5 0103 ####[facility] [facility].[address] PLAT CNT 351 10*3/uL Normal 150-400 [facility] Comment on above: Order Comment: No: D o not add to previous draw Performed By: #### 5 0103 ####[facility] [place] [address], [facility] RBC (Bld) [#/Vol] 2.91 10*6/uL Low 4.20-5.70 [facility] Comment on above: Order Comment: No: D o not add to previous draw Performed By: #### 5 0103 ####[facility] [place] [address], [facility] WBC (Bld) [#/Vol] 7.96 10*3/uL Normal 4.00-10.60 [facility] Comment on above: Order Comment: No: D o not add to previous draw Performed By: #### 5 0103 ####[facility] [facility].[address] COMP METABOLIC PANELon 05-31 Albumin [Mass/Vol] 2.9 g/dL Low 3.5-5.7 [facility] Comment on above: Order Comment: No: D o not add to previous drawNurse draw Performed By: #### 1 0, 20123 ####[facility] [facility].[address] ALKALINE PHOSPH 70 IU/L Normal 34-104 The [facility] Comment on above: Order Comment: No: D o not add to previous drawNurse draw Performed By: #### 1 0, 31901 ####[facility] [facility].[address] ALT [Catalytic activity/Vol] 9 U/L Normal 7-52 [facility] Comment on above: Order Comment: No: D o not add to previous drawNurse draw Performed By: #### 1 0, 21266 ####[facility] [id number], [place] AST [Catalytic activity/Vol] 11 U/L Low 13-39 [facility] Comment on above: Order Comment: No: D o not add to previous drawNurse draw Performed By: #### 1 0, 45092 ####[facility] [place] [address], [place] Bilirubin [Mass/Vol] 0.6 mg/dL Normal 0.3-1.0 [facility] Comment on above: Order Comment: No: D o not add to previous drawNurse draw Performed By: #### 1 0, 11820 ####[facility] [place] [address], [place] Calcium [Mass/Vol] 8.4 mg/dL Low 8.6-10.3 [facility] Comment on above: Order Comment: No: D o not add to previous drawNurse draw Performed By: #### 1 0, 33500 ####[facility] [place] [address], [place] Chloride [Moles/Vol] 102 mmol/L Normal 98-107 [facility] Comment on above: Order Comment: No: D o not add to previous drawNurse draw Performed By: #### 1 0, 76385 ####[facility] [place] [address], [place] CO2 [Moles/Vol] 27 mmol/L Normal 21-[address] [facility] Comment on above: Order Comment: No: D o not add to previous drawNurse draw Performed By: #### 1 0, 32410 ####[facility] [place] [address], [place] Creatinine [Mass/Vol] 2.90 mg/dL High 0.70-1.30 [facility] Comment on above: Order Comment: No: D o not add to previous drawNurse draw Performed By: #### 1 0, 09863 ####[facility] [place] [address], [facility] eGFR- 26 ml/min/1.73sq m Abnormal >60 [facility] Comment on above: Order Comment: No: D o not add to previous drawNurse draw Result Comment: Calc ulation may not be valid for patients over 70 years Performed By: #### 1 0, 87760 ####[facility] [place] [address], [facility] eGFR- non- 21 ml/min/1.73sq m Abnormal >60 [facility] Comment on above: Order Comment: No: D o not add to previous drawNurse draw Result Comment: Calc ulation may not be valid for patients over 70 years Performed By: #### 1 0, 92104 ####[facility] [place] [address], [place] Glucose [Mass/Vol] 97 mg/dL Normal 70-100 [facility] Comment on above: Order Comment: No: D o not add to previous drawNurse draw Performed By: #### 1 0, 95018 ####[facility] [place] [address], [place] Potassium [Moles/Vol] 4.4 mmol/L Normal 3.5-5.1 [facility] Comment on above: Order Comment: No: D o not add to previous drawNurse draw Performed By: #### 1 0, 01879 ####[facility] [place] [address], [place] Protein [Mass/Vol] 6.5 g/dL Normal 6.0-8.3 [facility]: Order Comment: No: D o not add to previous drawNurse draw Performed By: #### 1 0, 62283 ####[facility] [place] [address], [place] Sodium [Moles/Vol] 134 mmol/L Low 136-145 [facility] Comment on above: Order Comment: No: D o not add to previous drawNurse draw Performed By: #### 1 0070, 52506 ####[facility] [place] [address], [place] Urea nitrogen [Mass/Vol] 31 mg/dL High 7-25 [facility] Comment on above: Order Comment: No: D o not add to previous drawNurse draw Performed By: #### 1 0, 15865 ####[facility] [place] [address], [place] MAGNESIUM BLOODon 05-31-2021 Magnesium [Mass/Vol] 1.8 mg/dL Low 1.9-2.7 [facility] Comment on above: Performed By: #### 1 69, 86580 ####[facility] [place] [address], [place] POC GLUCOSE LABon 05-31-2021 Glucose [Mass/Vol] 120 mg/dL High 70-100 [facility] Comment on above: Performed By: #### 8 5499 ####[facility] [place] [address], [place] Glucose [Mass/Vol] 124 mg/dL High 70-100 [facility] Comment on above: Performed By: #### 8 5499 ####[facility] [place] [address], [place] Glucose [Mass/Vol] 136 mg/dL High 70-100 [facility] Comment on above: Performed By: #### 8 5499 ####[facility] [place] [address], [place] Glucose [Mass/Vol] 115 mg/dL High 70-100 [facility] Comment on above: Performed By: #### 8 5499 ####[facility] [place] [address], [facility] PORTABLE CHEST 1 VIEWon PORTABLE CHEST 1 VIEW Normal [facility] Comment on above: Order Comment: evalu ate for CHF PROTHROMBIN TIMEon INR Coag (PPP) [Relative time] 1.13 {INR} Normal 0.91-1.16 [facility] Comment on above: Result Comment: ACCC P RECOMMENDED INR FOR WARFARIN THERAPY CONDITION INRPROPHYLAXIS OF VENOUS THROMBOSIS 2-3(HIGH-RISK SURGERY)TREATMENT OF VENOUS THROMBOSIS 2-3TREATMENT OF PULMONARY EMBOLISM 2-3PREVENTION OF SYSTEMIC EMBOLISM: 2-3 ACUTE MYOCARDIAL INFARCTION TISSUE HEART VALVES VALVULAR HEART DISEASE ATRIAL FIBRILLATION RECURRENT SYSTEMIC EMBOLISMMECHANICAL HEART VALVE 2.5-3.5 FROM: ORAL ANTICOAGULANTS. MECHANISM OF ACTION, CLINICALEFFECTIVENESS, AND OPTIMAL THERAPEUTIC RANGE. [id number]. Performed By: #### 5 7307, 90006 ####[facility] [place] [address], [facility] PT Coag (PPP) [Time] 14.5 s Normal 12.3-14.8 [facility] Comment on above: Result Comment: ALL RESULTS MUST BE INTERPRETED WITH RESPECT TO BLOOD DRAWING ARTIFACTOR DILUTION ERROR OF ANTICOAGULANT AT THE TIME OF SAMPLING. Performed By: #### 5 7307, 53722 ####[facility] [place] [address], [facility] ALBUMIN BLOODon 05-30-2021 Albumin [Mass/Vol] 3.0 g/dL Low 3.5-5.7 [facility] Comment on above: Performed By: #### 1 69, , [id number] ####[facility] [place] [address], [facility] BASIC METABOLIC PANELon Calcium [Mass/Vol] 8.6 mg/dL Normal 8.6-10.3 [facility] Comment on above: Order Comment: No: D o not add to previous draw Performed By: #### 1 69, , [id number] ####[facility] [place] [address], [facility] Chloride [Moles/Vol] 102 mmol/L Normal 98-107 [facility] Comment on above: Order Comment: No: D o not add to previous draw Performed By: #### 1 69, , ####[facility] [place] [address], [facility] CO2 [Moles/Vol] 25 mmol/L Normal 21-31 The [facility] Comment on above: Order Comment: No: D o not add to previous draw Performed By: #### 1 69, , ####[facility] [place] [address], [facility] Creatinine [Mass/Vol] 2.49 mg/dL High 0.70-1.30 [facility] Comment on above: Order Comment: No: D o not add to previous draw Performed By: #### 1 69, , [id number] ####[facility] [place] [address], [facility] eGFR- 31 ml/min/1.73sq m Abnormal >60 [facility] Comment on above: Order Comment: No: D o not add to previous draw Result Comment: Calc ulation may not be valid for patients over 70 years Performed By: #### 1 0, , [id number] ####[facility] [place] [address], [facility] eGFR- non- 25 ml/min/1.73sq m Abnormal >60 [facility] Comment on above: Order Comment: No: D o not add to previous draw Result Comment: Calc ulation may not be valid for patients over 70 years Performed By: #### 1 0, , [id number] ####[facility] [id number], [facility] Glucose [Mass/Vol] 100 mg/dL Normal 70-100 [facility] Comment on above: Order Comment: No: D o not add to previous draw Performed By: #### 1 0, , 81461 ####[facility] [id number], [facility] Potassium [Moles/Vol] 4.5 mmol/L Normal 3.5-5.1 [facility] Comment on above: Order Comment: No: D o not add to previous draw Performed By: #### 1 69, , ####[facility] [place] [address], [place] Sodium [Moles/Vol] 134 mmol/L Low 136-145 [facility] Comment on above: Order Comment: No: D o not add to previous draw Performed By: #### 1 69, , ####[facility] [id number], [place] Urea nitrogen [Mass/Vol] 32 mg/dL High 7-25 [facility] Comment on above: Order Comment: No: D o not add to previous draw Performed By: #### 1 69, , ####[facility] CBC COMPLETE BLOOD COUNTon 1 Erythrocyte distribution width (RBC) [Ratio] 15.7 % High 11.5-15.0 [facility] Comment on above: Order Comment: No: D o not add to previous draw Performed By: #### 5 0608 ####[facility] Hematocrit (Bld) [Volume fraction] 26.5 % Low 39.0-50.0 [facility] Comment on above: Order Comment: No: D o not add to previous draw Performed By: #### 5 0608 ####[address] Hemoglobin (Bld) [Mass/Vol] 8.4 g/dL Low 13.0-17.0 [facility] Comment on above: Order Comment: No: D o not add to previous draw Performed By: #### 5 0608 ####[facility] MCH (RBC) [Entitic mass] 28.9 pg Normal 27.0-33.0 [facility] Comment on above: Order Comment: No: D o not add to previous draw Performed By: #### 5 0608 ####[facility] [place] [address] MCHC (RBC) [Mass/Vol] 31.7 g/dL Low 32.0-35.0 [facility] Comment on above: Order Comment: No: D o not add to previous draw Performed By: #### 5 0608 ####[facility] [place] [address] MCV (RBC) [Entitic vol] 91.1 fL Normal 82.0-98.0 [facility] Comment on above: Order Comment: No: D o not add to previous draw Performed By: #### 5 0608 ####[facility] [place] [address], [facility] Nucleated RBC/100 WBC (Bld) [Ratio] 0 % Normal 0-0 [facility] Comment on above: Order Comment: No: D o not add to previous draw Performed By: #### 5 0608 ####[facility] [place] [address], [facility] PLAT CNT 338 10*3/uL Normal 150-400 [facility] Comment on above: Order Comment: No: D o not add to previous draw Performed By: #### 5 0608 ####[facility] [place] [address], [facility] RBC (Bld) [#/Vol] 2.91 10*6/uL Low 4.20-5.70 [facility] Comment on above: Order Comment: No: D o not add to previous draw Performed By: #### 5 0608 ####[facility] [place] [address], [facility] WBC (Bld) [#/Vol] 7.23 10*3/uL Normal 4.00-10.60 [facility] Comment on above: Order Comment: No: D o not add to previous draw Performed By: #### 5 0608 ####[facility] [place] [address], [facility] CREATININE URINE RANDOMon Creatinine (U) [Mass/Vol] 39.0 mg/dL Normal [facility] Comment on above: Order Comment: No: D o not add to previous draw Result Comment: Ther e are no established reference values for random urine specimens Performed By: #### 2 5706, 12194 ####[facility] [place] [address], [facility] MAGNESIUM BLOODon 05-30-2021 Magnesium [Mass/Vol] 1.9 mg/dL Normal 1.9-2.7 [facility] Comment on above: Order Comment: No: D o not add to previous draw Performed By: #### 1 0070, 18872, 45825 ####[facility] [place] [address], [facility] POC GLUCOSE LABon 05-30-2021 Glucose [Mass/Vol] 155 mg/dL High 70-100 [facility] Comment on above: Performed By: #### 8 5499 ####[facility] [place] [address], [place] Glucose [Mass/Vol] 129 mg/dL High 70-100 [facility] Comment on above: Performed By: #### 8 5499 ####[facility] [place] [address], [place] Glucose [Mass/Vol] 147 mg/dL High 70-100 [facility] Comment on above: Performed By: #### 8 5499 ####[facility] [place] [address], [facility] PORTABLE CHEST 1 VIEWon 10-0 PORTABLE CHEST 1 VIEW Normal [facility] Comment on above: Order Comment: Evalu ate for Atelectasis T PROT UR Isi 05-30-2021 U TOTAL PROTEIN 88.8 mg/dL Normal The [facility] Comment on above: Order Comment: No: D o not add to previous draw Result Comment: Ther e are no established reference values for random urine specimens Performed By: #### 2 5706, 01868 ####[facility] [place] [address], [facility] URINE TRINH STAIN/EOSon EOSINOPHIL SMEAR NONE SEEN Normal NSN [facility] Comment on above: Order Comment: No: D o not add to previous draw [place] Normal [facility] Comment on above: Order Comment: No: D o not add to previous draw Result Comment: Test Performed by [facility] [id number] [place] [id number] - Released 05/30/2021 20:40 US RENALon 05-30-2021 US RENAL Normal [facility] Comment on above: Order Comment: Other , FREDA BASIC METABOLIC PANELon 10-0 Calcium [Mass/Vol] 8.4 mg/dL Low 8.6-10.3 [facility] Comment on above: Order Comment: No: D o not add to previous draw Performed By: #### 4 1000, 53964, 01924 ####[facility] [place] [address], [facility] Chloride [Moles/Vol] 102 mmol/L Normal 98-107 [facility] Comment on above: Order Comment: No: D o not add to previous draw Performed By: #### 4 1000, 07580, 38538 ####[facility] [place] [address], [facility] CO2 [Moles/Vol] 25 mmol/L Normal 21-31 [facility] Comment on above: Order Comment: No: D o not add to previous draw Performed By: #### 4 1000, 21871, 03556 ####[facility] [place] [address], [facility] Creatinine [Mass/Vol] 2.12 mg/dL High 0.70-1.30 [facility] Comment on above: Order Comment: No: D o not add to previous draw Performed By: #### 4 1000, 07132, 20819 ####[facility] [place] [address], [place] eGFR- 37 ml/min/1.73sq m Abnormal >60 [facility] Comment on above: Order Comment: No: D o not add to previous draw Result Comment: Calc ulation may not be valid for patients over 70 years Performed By: #### 4 1000, 15213, 69974 ####[facility] eGFR- non- 30 ml/min/1.73sq m Abnormal >60 [facility] Comment on above: Order Comment: No: D o not add to previous draw Result Comment: Calc ulation may not be valid for patients over 70 years Performed By: #### 4 1000, 83095, 31657 ####[facility] [place] [address], [facility] Glucose [Mass/Vol] 103 mg/dL High 70-100 [facility] Comment on above: Order Comment: No: D o not add to previous draw Performed By: #### 4 1000, 31939, 72336 ####[place] [address] [place] [address], [facility] Potassium [Moles/Vol] 4.6 mmol/L Normal 3.5-5.1 [facility] Comment on above: Order Comment: No: D o not add to previous draw Performed By: #### 4 1000, 65940, 19850 ####[place] [address] [place] [address], [facility] Sodium [Moles/Vol] 133 mmol/L Low 136-145 [facility] Comment on above: Order Comment: No: D o not add to previous draw Performed By: #### 4 1000, 95005, 83804 ####[place] [address] [place] [address], [facility] Urea nitrogen [Mass/Vol] 33 mg/dL High 7-25 [facility] Comment on above: Order Comment: No: D o not add to previous draw Performed By: #### 4 1000, 19366, 24463 ####[place] [address] [place] [address], [facility] CBC COMPLETE BLOOD COUNTon Erythrocyte distribution width (RBC) [Ratio] 15.7 % High 11.5-15.0 [facility] Comment on above: Order Comment: No: D o not add to previous draw Performed By: #### 5 0608 ####[facility] Hematocrit (Bld) [Volume fraction] 26.4 % Low 39.0-50.0 [facility] Comment on above: Order Comment: No: D o not add to previous draw Performed By: #### 5 0608 ####[facility] Hemoglobin (Bld) [Mass/Vol] 8.4 g/dL Low 13.0-17.0 [facility] Comment on above: Order Comment: No: D o not add to previous draw Performed By: #### 5 0608 ####[address] MCH (RBC) [Entitic mass] 29.0 pg Normal 27.0-33.0 [facility] Comment on above: Order Comment: No: D o not add to previous draw Performed By: #### 5 0608 ####[place] [address] [address] MCHC (RBC) [Mass/Vol] 31.8 g/dL Low 32.0-35.0 [facility] Comment on above: Order Comment: No: D o not add to previous draw Performed By: #### 5 0608 ####[facility] [place] [address] MCV (RBC) [Entitic vol] 91.0 fL Normal 82.0-98.0 [facility] Comment on above: Order Comment: No: D o not add to previous draw Performed By: #### 5 0608 ####[facility] [place] [address] Nucleated RBC/100 WBC (Bld) [Ratio] 0 % Normal 0-0 [facility] Comment on above: Order Comment: No: D o not add to previous draw Performed By: #### 5 0608 ####[facility] [place] [address], [facility] PLAT CNT 346 10*3/uL Normal 150-400 [facility] Comment on above: Order Comment: No: D o not add to previous draw Performed By: #### 5 0608 ####[facility] [place] [address], [facility] RBC (Bld) [#/Vol] 2.90 10*6/uL Low 4.20-5.70 [facility] Comment on above: Order Comment: No: D o not add to previous draw Performed By: #### 5 0608 ####[place] [address] [place] [address], [facility] WBC (Bld) [#/Vol] 7.17 10*3/uL Normal 4.00-10.60 [facility] Comment on above: Order Comment: No: D o not add to previous draw Performed By: #### 5 0608 ####[facility] [facility].[address] MAGNESIUM BLOODon 05-29-2021 Magnesium [Mass/Vol] 1.9 mg/dL Normal 1.9-2.7 [facility] Comment on above: Order Comment: No: D o not add to previous draw Performed By: #### 4 999, 74867, 62220 ####[facility] [place] [address], [facility] PHOSPHORUS BLOODon Phosphate [Mass/Vol] 4.4 mg/dL Normal 2.5-5.0 [facility] Comment on above: Order Comment: No: D o not add to previous draw Performed By: #### 4 999, 65833, 98526 ####[facility] [place] [address], [place] POC GLUCOSE LABon 05-29-2021 Glucose [Mass/Vol] 183 mg/dL High 70-100 [facility] Comment on above: Performed By: #### 8 5499 ####[facility] [place] [address], [place] Glucose [Mass/Vol] 124 mg/dL High 70-100 [facility] Comment on above: Performed By: #### 8 5499 ####[facility] [place] [address], [place] Glucose [Mass/Vol] 187 mg/dL High 70-100 [facility] Comment on above: Performed By: #### 8 5499 ####[facility] [place] [address], [place] Glucose [Mass/Vol] 189 mg/dL High 70-100 [facility] Comment on above: Performed By: #### 8 5499 ####[facility] [place] [address], [place] PORTABLE CHEST 1 VIEWon PORTABLE CHEST 1 VIEW Normal [facility] Comment on above: Order Comment: evalu ate for Atelectasis BASIC METABOLIC PANELon Calcium [Mass/Vol] 8.3 mg/dL Low 8.6-10.3 [facility] Comment on above: Order Comment: No: D o not add to previous draw Performed By: #### 2 5508, 59204, 45029, 26965 ####[facility] [place] [address], [place] Chloride [Moles/Vol] 99 mmol/L Normal 98-107 [facility] Comment on above: Order Comment: No: D o not add to previous draw Performed By: #### 2 5508, 40557, 85018, 50735 ####[facility] [place] [address], [facility] CO2 [Moles/Vol] 26 mmol/L Normal 21-[address] [facility] Comment on above: Order Comment: No: D o not add to previous draw Performed By: #### 2 5508, 34014, 46902, 57213 ####[facility] [place] [address], [facility] Creatinine [Mass/Vol] 2.18 mg/dL High 0.70-1.30 [facility] Comment on above: Order Comment: No: D o not add to previous draw Performed By: #### 2 5508, 15146, 11202, 58359 ####[facility] [place] [address], [facility] eGFR- 36 ml/min/1.73sq m Abnormal >60 [facility] Comment on above: Order Comment: No: D o not add to previous draw Result Comment: Calc ulation may not be valid for patients over 70 years Performed By: #### 2 5508, 37872, 16875, 79400 ####[facility] [place] [address], [facility] eGFR- non- 29 ml/min/1.73sq m Abnormal >60 [facility] Comment on above: Order Comment: No: D o not add to previous draw Result Comment: Calc ulation may not be valid for patients over 70 years Performed By: #### 2 5508, 99362, 34945, 59131 ####[facility] [place] [address], [place] Glucose [Mass/Vol] 100 mg/dL Normal 70-100 [facility] Comment on above: Order Comment: No: D o not add to previous draw Performed By: #### 2 5508, 97180, 22862, 82319 ####[facility] [place] [address], [place] Potassium [Moles/Vol] 5.3 mmol/L High 3.5-5.1 [facility] Comment on above: Order Comment: No: D o not add to previous draw Performed By: #### 2 5508, 69503, 80118, 43602 ####[facility] [facility].[address] Sodium [Moles/Vol] 131 mmol/L Low 136-145 [facility] Comment on above: Order Comment: No: D o not add to previous draw Performed By: #### 2 5508, 65584, 88403, 99620 ####[facility] [facility].[address] Urea nitrogen [Mass/Vol] 33 mg/dL High 7-25 [facility] Comment on above: Order Comment: No: D o not add to previous draw Performed By: #### 2 5508, 20912, 62082, 69694 ####[facility] [place] [address], [facility] CBC W/DIFFon 05-28-2021 ABS IMM GRANS 0.2 10*3/uL Normal 0.0-0.2 [facility] Comment on above: Performed By: #### 5 0103 ####[facility] [facility].[address] ABS NEUTROPHILS 5.6 10*3/uL Normal 1.6-7.6 [facility] Comment on above: Performed By: #### 5 0103 ####[facility] [place] [address], [facility] Basophils (Bld) [#/Vol] 0.0 10*3/uL Normal 0.0-0.2 [facility] Comment on above: Performed By: #### 5 0103 ####[facility] [facility].[address] Basophils/100 WBC (Bld) 0.5 % Normal 0.0-1.0 [facility] Comment on above: Performed By: #### 5 0103 ####[facility] [place] [address], [facility] Eosinophils (Bld) [#/Vol] 0.4 10*3/uL Normal 0.0-0.5 [facility] Comment on above: Performed By: #### 5 0103 ####[facility] [facility].[address] Eosinophils/100 WBC (Bld) 4.5 % Normal 0.0-6.0 [facility] Comment on above: Performed By: #### 5 0103 ####[facility] [facility].[address] Erythrocyte distribution width (RBC) [Ratio] 15.6 % High 11.5-15.0 [facility] Comment on above: Performed By: #### 5 0103 ####[facility] [facility].[address] Hematocrit (Bld) [Volume fraction] 27.7 % Low 39.0-50.0 [facility] Comment on above: Performed By: #### 5 0103 ####[facility] [facility].[address] Hemoglobin (Bld) [Mass/Vol] 8.6 g/dL Low 13.0-17.0 [facility] Comment on above: Performed By: #### 5 3 ####[facility] [facility].[address] IMMATURE GRANS 1.8 % High 0.0-1.0 [facility] Comment on above: Performed By: #### 5 3 ####[facility] [place] [address], [facility] Lymphocytes (Bld) [#/Vol] 1.8 10*3/uL Normal 1.2-4.0 [facility] Comment on above: Performed By: #### 5 0103 ####[facility] [facility].[address] Lymphocytes/100 WBC (Bld) 20.4 % Normal 20.0-45.0 [facility] Comment on above: Performed By: #### 5 0103 ####[facility] [facility].[address] MCH (RBC) [Entitic mass] 28.6 pg Normal 27.0-33.0 [facility] Comment on above: Performed By: #### 5 3 ####[facility] [facility].[address] MCHC (RBC) [Mass/Vol] 31.0 g/dL Low 32.0-35.0 [facility] Comment on above: Performed By: #### 5 0103 ####[facility] [facility].[address] MCV (RBC) [Entitic vol] 92.0 fL Normal 82.0-98.0 [facility] Comment on above: Performed By: #### 5 3 ####[facility] [facility].[address] Monocytes (Bld) [#/Vol] 0.9 10*3/uL Normal 0.1-1.0 [facility] Comment on above: Performed By: #### 5 3 ####[facility] MONOS 9.9 % Normal 5.0-12.0 [facility] Comment on above: Performed By: #### 5 3 ####[facility] [facility].[address] Neutrophils/100 WBC (Bld) 62.9 % Normal 40.0-72.0 [facility] Comment on above: Performed By: #### 5 0103 ####[facility] [facility].[address] Nucleated RBC/100 WBC (Bld) [Ratio] 0 % Normal 0-0 [facility] Comment on above: Performed By: #### 5 0103 ####[facility] PLAT CNT 387 10*3/uL Normal 150-400 [facility] Comment on above: Performed By: #### 5 0103 ####[facility] RBC (Bld) [#/Vol] 3.01 10*6/uL Low 4.20-5.70 [facility] Comment on above: Performed By: #### 5 0103 ####[facility] WBC (Bld) [#/Vol] 8.82 10*3/uL Normal 4.00-10.60 [facility] Comment on above: Performed By: #### 5 0103 ####[facility] CPKon 05-28-2021 CK [Catalytic activity/Vol] 19 U/L Low 30-223 [facility] Comment on above: Performed By: #### 2 5508, 39987, 05465, 02686 ####[facility] MAGNESIUM BLOODon 05-28-2021 Magnesium [Mass/Vol] 1.9 mg/dL Normal 1.9-2.7 [facility] Comment on above: Order Comment: No: D o not add to previous draw Performed By: #### 2 5508, 90227, 96979, 17613 ####[facility] [place] [address], [facility] Operative Reporton 1 Operative Report Normal [facility] PHOSPHORUS BLOODon 1 Phosphate [Mass/Vol] 4.5 mg/dL Normal 2.5-5.0 [facility] Comment on above: Performed By: #### 2 5508, 02261, 54771, 26043 ####[facility] [place] [address], [place] POC GLUCOSE LABon 05-28-2021 Glucose [Mass/Vol] 120 mg/dL High 70-100 [facility] Comment on above: Performed By: #### 8 5499 ####[facility] [place] [address], [place] Glucose [Mass/Vol] 130 mg/dL High 70-100 [facility] Comment on above: Performed By: #### 8 5499 ####[facility] [place] [address], [place] Glucose [Mass/Vol] 117 mg/dL High 70-100 [facility] Comment on above: Performed By: #### 8 5499 ####[facility] [place] [address], [place] Glucose [Mass/Vol] 175 mg/dL High 70-100 [facility] Comment on above: Performed By: #### 8 5499 ####[facility] [place] [address], [place] Glucose [Mass/Vol] 107 mg/dL High 70-100 [facility] Comment on above: Performed By: #### 8 5499 ####[facility] [place] [address], [place] BASIC METABOLIC PANELon 10- Calcium [Mass/Vol] 8.4 mg/dL Low 8.6-10.3 [facility] Comment on above: Order Comment: No: D o not add to previous draw Performed By: #### 0 0071, 92533, 79372 ####[facility] [place] [address], [facility] Chloride [Moles/Vol] 99 mmol/L Normal 98-107 [facility] Comment on above: Order Comment: No: D o not add to previous draw Performed By: #### 0 0071, , 36365 ####[facility] [place] [address], [facility] CO2 [Moles/Vol] 29 mmol/L Normal 21-[address] [facility] Comment on above: Order Comment: No: D o not add to previous draw Performed By: #### 0 0071, , 06429 ####[facility] [place] [address], [facility] Creatinine [Mass/Vol] 1.78 mg/dL High 0.70-1.30 [facility] Comment on above: Order Comment: No: D o not add to previous draw Performed By: #### 0 0071, , 31035 ####[facility] eGFR- 45 ml/min/1.73sq m Abnormal >60 [facility] Comment on above: Order Comment: No: D o not add to previous draw Result Comment: Calc ulation may not be valid for patients over 70 years Performed By: #### 0 0071, , 71848 ####[facility] eGFR- non- 37 ml/min/1.73sq m Abnormal >60 [facility] Comment on above: Order Comment: No: D o not add to previous draw Result Comment: Calc ulation may not be valid for patients over 70 years Performed By: #### 0 0071, 42019, 41971 ####[facility] [place] [address], [facility] Glucose [Mass/Vol] 96 mg/dL Normal 70-100 [facility] Comment on above: Order Comment: No: D o not add to previous draw Performed By: #### 0 0071, , 16834 ####[facility] [place] [address], [facility] Potassium [Moles/Vol] 4.7 mmol/L Normal 3.5-5.1 [facility] Comment on above: Order Comment: No: D o not add to previous draw Performed By: #### 0 0071, , 64361 ####[facility] [id number], [facility] Sodium [Moles/Vol] 133 mmol/L Low 136-145 [facility] Comment on above: Order Comment: No: D o not add to previous draw Performed By: #### 0 0071, , 88792 ####[facility] [place] [address], [facility] Urea nitrogen [Mass/Vol] 33 mg/dL High 7-25 [facility] Comment on above: Order Comment: No: D o not add to previous draw Performed By: #### 0 0071, , 33742 ####[facility] [place] [address], [place] C REACTIVE PROTEINon 021 CRP [Mass/Vol] 47.2 mg/L High 0.0-7.0 [facility] Comment on above: Order Comment: Yes: Add to Previous draw if able Performed By: #### 6 1405 ####[facility] [place] [address], [facility] CBC COMPLETE BLOOD COUNTon 1 Erythrocyte distribution width (RBC) [Ratio] 15.5 % High 11.5-15.0 [facility] Comment on above: Order Comment: No: D o not add to previous drawNurse draw Performed By: #### 5 6506, 42650 ####[facility] Hematocrit (Bld) [Volume fraction] 24.7 % Low 39.0-50.0 [facility] Comment on above: Order Comment: No: D o not add to previous drawNurse draw Performed By: #### 5 6506, 95834 ####[facility] Hemoglobin (Bld) [Mass/Vol] 7.7 g/dL Low 13.0-17.0 [facility] Comment on above: Order Comment: No: D o not add to previous drawNurse draw Performed By: #### 5 1996, 16850 ####[facility] MCH (RBC) [Entitic mass] 28.5 pg Normal 27.0-33.0 [facility] Comment on above: Order Comment: No: D o not add to previous drawNurse draw Performed By: #### 5 9486, 30169 ####[facility] MCHC (RBC) [Mass/Vol] 31.2 g/dL Low 32.0-35.0 [facility] Comment on above: Order Comment: No: D o not add to previous drawNurse draw Performed By: #### 5 4546, 93522 ####[facility] [place] [address], [facility] MCV (RBC) [Entitic vol] 91.5 fL Normal 82.0-98.0 [facility] Comment on above: Order Comment: No: D o not add to previous drawNurse draw Performed By: #### 5 6506, 67092 ####[facility] [place] [address], [facility] Nucleated RBC/100 WBC (Bld) [Ratio] 0 % Normal 0-0 [facility] Comment on above: Order Comment: No: D o not add to previous drawNurse draw Performed By: #### 5 6506, 57803 ####[facility] [place] [address], [facility] PLAT CNT 332 10*3/uL Normal 150-400 [facility] Comment on above: Order Comment: No: D o not add to previous drawNurse draw Performed By: #### 5 6506, 75329 ####[facility] [place] [address], [facility] RBC (Bld) [#/Vol] 2.70 10*6/uL Low 4.20-5.70 [facility] Comment on above: Order Comment: No: D o not add to previous drawNurse draw Performed By: #### 5 6506, 66757 ####[place] [id number] [place] [address], [facility] WBC (Bld) [#/Vol] 7.87 10*3/uL Normal 4.00-10.60 [facility] Comment on above: Order Comment: No: D o not add to previous drawNurse draw Performed By: #### 5 6506, 15659 ####[facility] [place] [address], [facility] MAGNESIUM BLOODon 05-27-2021 Magnesium [Mass/Vol] 2.1 mg/dL Normal 1.9-2.7 [facility] Comment on above: Order Comment: No: D o not add to previous draw Performed By: #### 0 0071, 30150, 85430 ####[facility] [place] [address], [facility] POC GLUCOSE LABon 05-27-2021 Glucose [Mass/Vol] 134 mg/dL High 70-100 [facility] Comment on above: Performed By: #### 8 5499 ####[facility] [place] [address], [facility] Glucose [Mass/Vol] 109 mg/dL High 70-100 [facility] Comment on above: Performed By: #### 8 5499 ####[facility] [place] [address], [facility] Glucose [Mass/Vol] 151 mg/dL High 70-100 [facility] Comment on above: Performed By: #### 8 5499 ####[facility] [place] [address], [facility] Glucose [Mass/Vol] 114 mg/dL High 70-100 [facility] Comment on above: Performed By: #### 8 5499 ####[facility] [facility].[address] PORTABLE CHEST 1 VIEWon PORTABLE CHEST 1 VIEW Normal [facility] Comment on above: Order Comment: evalu ate for Atelectasis RBC'S 1 UNITon 05-27-2021 CROSSMATCH INTERP 1 COMP Normal [facility] Comment on above: Performed By: #### 8 6001 ####[facility] [facility].[address] PRODUCT CODE 1 E0336 Normal [facility] Comment on above: Performed By: #### 8 6001 ####[facility] [facility].[address] PRODUCT STATUS 1 PT Normal [facility] Comment on above: Result Comment: Resu lt changed by IF on 05/27/2021 11:45. The previous value was XM.Result changed by IF on 05/28/2021 00:30. The previous value was IS. Performed By: #### 8 6001 ####[facility] [place] [address], [facility] UNIT ABO 1 O Normal [facility] Comment on above: Performed By: #### 8 6001 ####[facility] UNIT ID 1 [id number] Normal The [facility] Comment on above: Performed By: #### 8 6001 ####[facility] [facility].[address] UNIT RH 1 Negative Normal [facility] Comment on above: Performed By: #### 8 6001 ####[facility] SEDIMENTATION RATEon 021 SED RATE 48 mm/hr High 0-10 [facility] Comment on above: Performed By: #### 5 6506, 79871 ####[facility] [facility].[address] VANCOMYCIN RANDOMon 05-27-20 21 VANCOMYCIN RAND 12.2 mcg/mL Normal [facility] Comment on above: Performed By: #### 0 0071, 09082, 19302 ####[facility] BASIC METABOLIC PANELon 10-0 Calcium [Mass/Vol] 8.2 mg/dL Low 8.6-10.3 [facility] Comment on above: Order Comment: No: D o not add to previous draw Performed By: #### 1 0070, 77392 ####[facility] Chloride [Moles/Vol] 98 mmol/L Normal 98-107 [facility] Comment on above: Order Comment: No: D o not add to previous draw Performed By: #### 1 69, 69099 ####[facility] [place] [address], [facility] CO2 [Moles/Vol] 30 mmol/L Normal 21-31 [facility] Comment on above: Order Comment: No: D o not add to previous draw Performed By: #### 1 69, 50182 ####[facility] [place] [address], [facility] Creatinine [Mass/Vol] 1.78 mg/dL High 0.70-1.30 [facility] Comment on above: Order Comment: No: D o not add to previous draw Performed By: #### 1 69, 82829 ####[facility] [place] [address], [facility] eGFR- 45 ml/min/1.73sq m Abnormal >60 [facility] Comment on above: Order Comment: No: D o not add to previous draw Result Comment: Calc ulation may not be valid for patients over 70 years Performed By: #### 1 69, 39142 ####[facility] [place] [address], [facility] eGFR- non- 37 ml/min/1.73sq m Abnormal >60 [facility] Comment on above: Order Comment: No: D o not add to previous draw Result Comment: Calc ulation may not be valid for patients over 70 years Performed By: #### 1 69, 85804 ####[facility] [place] [address], [facility] Glucose [Mass/Vol] 97 mg/dL Normal 70-100 [facility] Comment on above: Order Comment: No: D o not add to previous draw Performed By: #### 1 69, 18624 ####[facility] Potassium [Moles/Vol] 4.8 mmol/L Normal 3.5-5.1 [facility] Comment on above: Order Comment: No: D o not add to previous draw Performed By: #### 1 69, 62563 ####[facility] Sodium [Moles/Vol] 131 mmol/L Low 136-145 [facility] Comment on above: Order Comment: No: D o not add to previous draw Performed By: #### 1 69, 49331 ####[facility] Urea nitrogen [Mass/Vol] 35 mg/dL High 7-25 [facility] Comment on above: Order Comment: No: D o not add to previous draw Performed By: #### 1 69, 03303 ####[facility] [facility].[address] CBC COMPLETE BLOOD COUNTon 1 - Erythrocyte distribution width (RBC) [Ratio] 15.4 % High 11.5-15.0 [facility] Comment on above: Order Comment: No: D o not add to previous drawNurse draw Performed By: #### 5 0608 ####[facility] [facility].[address] Hematocrit (Bld) [Volume fraction] 24.3 % Low 39.0-50.0 [facility] Comment on above: Order Comment: No: D o not add to previous drawNurse draw Performed By: #### 5 0608 ####[facility] [facility].[address] Hemoglobin (Bld) [Mass/Vol] 7.9 g/dL Low 13.0-17.0 [facility] Comment on above: Order Comment: No: D o not add to previous drawNurse draw Performed By: #### 5 0608 ####[facility] MCH (RBC) [Entitic mass] 28.6 pg Normal 27.0-33.0 [facility] Comment on above: Order Comment: No: D o not add to previous drawNurse draw Performed By: #### 5 0608 ####[facility] MCHC (RBC) [Mass/Vol] 32.5 g/dL Normal 32.0-35.0 [facility] Comment on above: Order Comment: No: D o not add to previous drawNurse draw Performed By: #### 5 0608 ####[address] MCV (RBC) [Entitic vol] 88.0 fL Normal 82.0-98.0 [facility] Comment on above: Order Comment: No: D o not add to previous drawNurse draw Performed By: #### 5 0608 ####[address] Nucleated RBC/100 WBC (Bld) [Ratio] 0 % Normal 0-0 [facility] Comment on above: Order Comment: No: D o not add to previous drawNurse draw Performed By: #### 5 0608 ####[place] [address], [facility] PLAT CNT 320 10*3/uL Normal 150-400 [facility] Comment on above: Order Comment: No: D o not add to previous drawNurse draw Performed By: #### 5 0608 ####[place] [address], [facility] RBC (Bld) [#/Vol] 2.76 10*6/uL Low 4.20-5.70 [facility] Comment on above: Order Comment: No: D o not add to previous drawNurse draw Performed By: #### 5 0608 ####[facility] [place] [address], [facility] WBC (Bld) [#/Vol] 7.52 10*3/uL Normal 4.00-10.60 [facility] Comment on above: Order Comment: No: D o not add to previous drawNurse draw Performed By: #### 5 0608 ####[facility] [place] [address], [facility] MAGNESIUM BLOODon 05-26-2021 Magnesium [Mass/Vol] 2.1 mg/dL Normal 1.9-2.7 [facility] Comment on above: Order Comment: No: D o not add to previous draw Performed By: #### 1 0070, 80357 ####[facility] [place] [address], [facility] POC GLUCOSE LABon 05-26-2021 Glucose [Mass/Vol] 138 mg/dL High 70-100 [facility] Comment on above: Performed By: #### 8 5499 ####[facility] [place] [address], [facility] Glucose [Mass/Vol] 119 mg/dL High 70-100 [facility] Comment on above: Performed By: #### 8 5499 ####[facility] [place] [address], [facility] Glucose [Mass/Vol] 118 mg/dL High 70-100 [facility] Comment on above: Performed By: #### 8 5499 ####[facility] [place] [address], [facility] PORTABLE CHEST 1 VIEWon PORTABLE CHEST 1 VIEW Normal [facility] Comment on above: Order Comment: evalu ate for Atelectasis BASIC METABOLIC PANELon Calcium [Mass/Vol] 8.1 mg/dL Low 8.6-10.[address] Comment on above: Order Comment: No: D o not add to previous draw Performed By: #### 3 0953, 75403, 49984 ####[facility] [place] [address], [facility] Chloride [Moles/Vol] 95 mmol/L Low 98-107 [facility] Comment on above: Order Comment: No: D o not add to previous draw Performed By: #### 3 0953, 58129, 77444 ####[facility] [place] [address], [facility] CO2 [Moles/Vol] 27 mmol/L Normal 21-[address] [facility] Comment on above: Order Comment: No: D o not add to previous draw Performed By: #### 3 0953, 94072, 07295 ####[facility] [place] [address], [facility] Creatinine [Mass/Vol] 2.13 mg/dL High 0.70-1.30 [facility] Comment on above: Order Comment: No: D o not add to previous draw Performed By: #### 3 0953, 57109, 15343 ####[facility] [facility].[address] eGFR- 37 ml/min/1.73sq m Abnormal >60 [facility] Comment on above: Order Comment: No: D o not add to previous draw Result Comment: Calc ulation may not be valid for patients over 70 years Performed By: #### 3 0953, 21877, 97688 ####[facility] [place] [address], [facility] eGFR- non- 30 ml/min/1.73sq m Abnormal >60 [facility] Comment on above: Order Comment: No: D o not add to previous draw Result Comment: Calc ulation may not be valid for patients over 70 years Performed By: #### 3 0953, 29072, 57373 ####[facility] [id number], [facility] Glucose [Mass/Vol] 122 mg/dL High 70-100 [facility] Comment on above: Order Comment: No: D o not add to previous draw Performed By: #### 3 0953, 48749, 29522 ####[facility] [address], [facility] Potassium [Moles/Vol] 4.8 mmol/L Normal 3.5-5.1 [facility] Comment on above: Order Comment: No: D o not add to previous draw Performed By: #### 3 0953, 82528, 84927 ####[facility] [id number], [facility] Sodium [Moles/Vol] 128 mmol/L Low 136-145 [facility] Comment on above: Order Comment: No: D o not add to previous draw Performed By: #### 3 53, 56418, 67634 ####[facility] [place] [address], [facility] Urea nitrogen [Mass/Vol] 35 mg/dL High 7-25 [facility] Comment on above: Order Comment: No: D o not add to previous draw Performed By: #### 3 0953, 28536, 40626 ####[facility] [facility].[address] CBC COMPLETE BLOOD COUNTon 1 - Erythrocyte distribution width (RBC) [Ratio] 15.8 % High 11.5-15.0 [facility] Comment on above: Order Comment: No: D o not add to previous draw Performed By: #### 5 0608 ####[facility] [place] [address], [facility] Hematocrit (Bld) [Volume fraction] 22.3 % Low 39.0-50.0 [facility] Comment on above: Order Comment: No: D o not add to previous draw Performed By: #### 5 0608 ####[facility] [facility].[address] Hemoglobin (Bld) [Mass/Vol] 7.3 g/dL Low 13.0-17.0 [facility] Comment on above: Order Comment: No: D o not add to previous draw Performed By: #### 5 0608 ####[facility] MCH (RBC) [Entitic mass] 28.7 pg Normal 27.0-33.0 [facility] Comment on above: Order Comment: No: D o not add to previous draw Performed By: #### 5 0608 ####[facility] MCHC (RBC) [Mass/Vol] 32.7 g/dL Normal 32.0-35.0 [facility] Comment on above: Order Comment: No: D o not add to previous draw Performed By: #### 5 0608 ####[address] MCV (RBC) [Entitic vol] 87.8 fL Normal 82.0-98.0 [facility] Comment on above: Order Comment: No: D o not add to previous draw Performed By: #### 5 0608 ####[facility] [place] [address] Nucleated RBC/100 WBC (Bld) [Ratio] 0 % Normal 0-0 [facility] Comment on above: Order Comment: No: D o not add to previous draw Performed By: #### 5 0608 ####[facility] [place] [address], [facility] PLAT CNT 292 10*3/uL Normal 150-400 [facility] Comment on above: Order Comment: No: D o not add to previous draw Performed By: #### 5 0608 ####[facility] [place] [address], [facility] RBC (Bld) [#/Vol] 2.54 10*6/uL Low 4.20-5.70 [facility] Comment on above: Order Comment: No: D o not add to previous draw Performed By: #### 5 0608 ####[facility] [place] [address], [facility] WBC (Bld) [#/Vol] 8.90 10*3/uL Normal 4.00-10.60 [facility] Comment on above: Order Comment: No: D o not add to previous draw Performed By: #### 5 0608 ####[facility] [facility].[address] HEMATOCRITon 05-25-2021 Hematocrit (Bld) [Volume fraction] 25.1 % Low 39.0-50.0 [facility] Comment on above: Order Comment: No: D o not add to previous draw Performed By: #### 9 2088, 14195 ####[facility] [facility].[address] HEMOGLOBINon 05-25-2021 Hemoglobin (Bld) [Mass/Vol] 8.4 g/dL Low 13.0-17.0 [facility] Comment on above: Order Comment: No: D o not add to previous draw Performed By: #### 9 2088, 20941 ####[facility] [place] [address], [facility] MAGNESIUM BLOODon 05-25-2021 Magnesium [Mass/Vol] 2.0 mg/dL Normal 1.9-2.7 [facility] Comment on above: Order Comment: No: D o not add to previous draw Performed By: #### 3 0953, 34944, 03867 ####[facility] [place] [address], [facility] POC GLUCOSE LABon 05-25-2021 Glucose [Mass/Vol] 136 mg/dL High 70-100 [facility] Comment on above: Performed By: #### 8 5499 ####[facility] [place] [address], [place] Glucose [Mass/Vol] 115 mg/dL High 70-100 [facility] Comment on above: Performed By: #### 8 5499 ####[facility] [place] [address], [place] Glucose [Mass/Vol] 72 mg/dL Normal 70-100 [facility] Comment on above: Performed By: #### 8 5499 ####[facility] [place] [address], [place] Glucose [Mass/Vol] 154 mg/dL High 70-100 [facility] Comment on above: Performed By: #### 8 5499 ####[facility] [place] [address], [facility] PORTABLE CHEST 1 VIEWon PORTABLE CHEST 1 VIEW Normal [facility] Comment on above: Order Comment: Evalu ate for Effusion RBC'S 2 UNITSon 05-25-2021 CROSSMATCH INTERP 1 COMP Normal [facility] Comment on above: Performed By: #### 8 6002 ####[facility] [place] [address], [facility] CROSSMATCH INTERP [address] [facility] Comment on above: Performed By: #### 8 6002 ####[facility] [place] [address], [facility] PRODUCT CODE 1 E0686 Normal [facility] Comment on above: Performed By: #### 8 6002 ####[facility] [place] [address], [facility] PRODUCT CODE 2 E0336 Normal [facility] Comment on above: Performed By: #### 8 6002 ####[facility] [place] [address], [facility] PRODUCT STATUS 1 PT Normal [facility] Comment on above: Result Comment: Resu lt changed by IF on 05/25/2021 13:50. The previous value was XM.Result changed by IF on 05/26/2021 00:30. The previous value was IS. Performed By: #### 8 6002 ####[facility] [place] [address], [facility] PRODUCT STATUS 2 PT Normal [facility] Comment on above: Result Comment: Resu lt changed by IF on 05/25/2021 09:50. The previous value was XM.Result changed by IF on 05/26/2021 00:30. The previous value was IS. Performed By: #### 8 6002 ####[facility] [place] [address], [facility] UNIT ABO 1 O Normal [facility] Comment on above: Performed By: #### 8 6002 ####[facility] [place] [address], [facility] UNIT ABO 2 O Normal [facility] Comment on above: Performed By: #### 8 6002 ####[facility] [place] [address], [facility] UNIT ID 1 [id number] Normal The [facility] Comment on above: Performed By: #### 8 6002 ####[facility] [place] [address], [facility] UNIT ID 2 [id number] Normal [facility] Comment on above: Performed By: #### 8 6002 ####[facility] [place] [address], [place] UNIT RH 1 Positive Normal [facility] Comment on above: Performed By: #### 8 6002 ####[facility] [place] [address], [place] UNIT RH 2 Positive Normal [facility] Comment on above: Performed By: #### 8 6002 ####[facility] [place] [address], [place] VANCOMYCIN TIMEDon VANCOMYCIN TIMED 24.3 mcg/mL Normal [facility] Comment on above: Performed By: #### 3 0953, 69521, 47924 ####[facility] [place] [address], [facility] BASIC METABOLIC PANELon 10-0 Calcium [Mass/Vol] 7.8 mg/dL Low 8.6-10.3 [facility] Comment on above: Order Comment: No: D o not add to previous draw Performed By: #### 0 0071, 63956, 13958, 47512 ####[facility] [place] [address], [place] Chloride [Moles/Vol] 97 mmol/L Low 98-107 [facility] Comment on above: Order Comment: No: D o not add to previous draw Performed By: #### 0 0071, 18010, 88728, 36641 ####[facility] [place] [address], [place] CO2 [Moles/Vol] 30 mmol/L Normal 21-31 The [facility] Comment on above: Order Comment: No: D o not add to previous draw Performed By: #### 0 0071, 17449, 83313, 57831 ####[facility] [place] [address], [place] Creatinine [Mass/Vol] 1.70 mg/dL High 0.70-1.30 [facility] Comment on above: Order Comment: No: D o not add to previous draw Performed By: #### 0 0071, 04322, 24470, 30319 ####[facility] [place] [address], [facility] eGFR- 48 ml/min/1.73sq m Abnormal >60 [facility] Comment on above: Order Comment: No: D o not add to previous draw Result Comment: Calc ulation may not be valid for patients over 70 years Performed By: #### 0 0071, 75958, 00432, 36691 ####[facility] eGFR- non- 39 ml/min/1.73sq m Abnormal >60 [facility] Comment on above: Order Comment: No: D o not add to previous draw Result Comment: Calc ulation may not be valid for patients over 70 years Performed By: #### 0 0071, 60259, 81306, 93539 ####[facility] [place] [address], [facility] Glucose [Mass/Vol] 132 mg/dL High 70-100 [facility] Comment on above: Order Comment: No: D o not add to previous draw Performed By: #### 0 0071, 74511, 53177, 76960 ####[facility] [place] [address], [facility] Potassium [Moles/Vol] 5.2 mmol/L High 3.5-5.1 [facility] Comment on above: Order Comment: No: D o not add to previous draw Performed By: #### 0 0071, 61678, 94101, 77049 ####[facility] [id number], [place] Sodium [Moles/Vol] 131 mmol/L Low 136-145 [facility] Comment on above: Order Comment: No: D o not add to previous draw Performed By: #### 0 0071, 33212, 80343, 28612 ####[facility] [facility] [facility] Urea nitrogen [Mass/Vol] 27 mg/dL High 7-25 [facility] Comment on above: Order Comment: No: D o not add to previous draw Performed By: #### 0 0071, 09398, 73683, 33149 ####[facility] [facility] CBC COMPLETE BLOOD COUNTon Erythrocyte distribution width (RBC) [Ratio] 14.5 % Normal 11.5-15.0 [facility] Comment on above: Order Comment: No: D o not add to previous draw Performed By: #### 5 0608 ####[facility] [facility] [address] Hematocrit (Bld) [Volume fraction] 23.1 % Low 39.0-50.0 [facility] Comment on above: Order Comment: No: D o not add to previous draw Performed By: #### 5 0608 ####[facility] [facility].[address] Hemoglobin (Bld) [Mass/Vol] 7.4 g/dL Low 13.0-17.0 [facility] Comment on above: Order Comment: No: D o not add to previous draw Performed By: #### 5 0608 ####[facility] [place] [address], [facility] MCH (RBC) [Entitic mass] 28.9 pg Normal 27.0-33.0 [facility] Comment on above: Order Comment: No: D o not add to previous draw Performed By: #### 5 0608 ####[facility] MCHC (RBC) [Mass/Vol] 32.0 g/dL Normal 32.0-35.0 [facility] Comment on above: Order Comment: No: D o not add to previous draw Performed By: #### 5 0608 ####[facility] [place] [address], [facility] MCV (RBC) [Entitic vol] 90.2 fL Normal 82.0-98.0 [facility] Comment on above: Order Comment: No: D o not add to previous draw Performed By: #### 5 0608 ####[address] Nucleated RBC/100 WBC (Bld) [Ratio] 0 % Normal 0-0 [facility] Comment on above: Order Comment: No: D o not add to previous draw Performed By: #### 5 0608 ####[facility] [place] [address], [facility] PLAT CNT 312 10*3/uL Normal 150-400 [facility] Comment on above: Order Comment: No: D o not add to previous draw Performed By: #### 5 0608 ####[address] [place] [address], [facility] RBC (Bld) [#/Vol] 2.56 10*6/uL Low 4.20-5.70 [facility] Comment on above: Order Comment: No: D o not add to previous draw Performed By: #### 5 0608 ####[facility] [place] [address], [facility] WBC (Bld) [#/Vol] 10.23 10*3/uL Normal 4.00-10.60 [facility] Comment on above: Order Comment: No: D o not add to previous draw Performed By: #### 5 0608 ####[address] [place] [address], [facility] MAGNESIUM BLOODon 05-24-2021 Magnesium [Mass/Vol] 1.8 mg/dL Low 1.9-2.7 [facility] Comment on above: Order Comment: No: D o not add to previous draw Performed By: #### 0 0071, 12189, 70745, 77841 ####[facility] [place] [address], [facility] PHOSPHORUS BLOODon Phosphate [Mass/Vol] 5.0 mg/dL Normal 2.5-5.0 [facility] Comment on above: Order Comment: No: D o not add to previous draw Performed By: #### 0 0071, 50864, 47614, 38793 ####[facility] [place] [address], [facility] POC GLUCOSE LABon 05-24-2021 Glucose [Mass/Vol] 156 mg/dL High 70-100 [facility] Comment on above: Performed By: #### 8 5499 ####[facility] [place] [address], [place] Glucose [Mass/Vol] 129 mg/dL High 70-100 [facility] Comment on above: Performed By: #### 8 5499 ####[facility] [place] [address], [place] Glucose [Mass/Vol] 188 mg/dL High 70-100 [facility] Comment on above: Performed By: #### 8 5499 ####[facility] [place] [address], [place] Glucose [Mass/Vol] 141 mg/dL High 70-100 [facility] Comment on above: Performed By: #### 8 5499 ####[facility] [place] [address], [place] RBC'S 1 UNITon 05-24-2021 CROSSMATCH INTERP 1 COMP Normal [facility] Comment on above: Performed By: #### 8 6001 ####[facility] PRODUCT CODE 1 E0332 Normal [facility] Comment on above: Performed By: #### 8 6001 ####[facility] PRODUCT STATUS 1 PT Normal [facility] Comment on above: Result Comment: Resu lt changed by IF on 05/24/2021 11:33. The previous value was XM.Result changed by IF on 05/25/2021 00:30. The previous value was IS. Performed By: #### 8 6001 ####[facility] UNIT ABO 1 O Normal [facility] Comment on above: Performed By: #### 8 6001 ####[facility] UNIT ID 1 [id number] Normal [facility] Comment on above: Performed By: #### 8 6001 ####[facility] [place] [address], [facility] UNIT RH 1 Positive Normal [facility] Comment on above: Performed By: #### 8 6001 ####[facility] [place] [address], [facility] TYPE AND SCREENon 05-24-2021 ABO INTERPRETATION O Normal [facility] Comment on above: Performed By: #### 6 2586 ####[facility] [place] [address], [facility] RH INTERPRETATION Positive Normal [facility] Comment on above: Performed By: #### 6 2586 ####[facility] [place] [address], [facility] VANCOMYCIN TIMEDon VANCOMYCIN TIMED 42.1 mcg/mL Normal [facility] Comment on above: Performed By: #### 0 0071, 65668, 23516, 88571 ####[facility] BASIC METABOLIC PANELon 09-3 Calcium [Mass/Vol] 8.7 mg/dL Normal 8.6-10.3 [facility] Comment on above: Order Comment: No: D o not add to previous draw Performed By: #### 4 1000, 84459, 20728 ####[facility] [place] [address], [facility] Chloride [Moles/Vol] 97 mmol/L Low 98-107 [facility] Comment on above: Order Comment: No: D o not add to previous draw Performed By: #### 4 1000, 64539, 47022 ####[facility] [place] [address], [facility] CO2 [Moles/Vol] 32 mmol/L High 21-31 [facility] Comment on above: Order Comment: No: D o not add to previous draw Performed By: #### 4 1000, 88292, 13669 ####[facility] [place] [address], [facility] Creatinine [Mass/Vol] 1.31 mg/dL High 0.70-1.30 [facility] Comment on above: Order Comment: No: D o not add to previous draw Performed By: #### 4 1000, 08427, 08025 ####[facility] eGFR- non- 53 ml/min/1.73sq m Abnormal >60 [facility] Comment on above: Order Comment: No: D o not add to previous draw Result Comment: Calc ulation may not be valid for patients over 70 years Performed By: #### 4 1000, 13357, 35355 ####[facility] [place] [address], [facility] GFR/1.73 sq M.predicted among blacks MDRD (S/P/Bld) [Vol rate/Area] mL/min/{1.73_m2} Normal >60 [facility] Comment on above: Order Comment: No: D o not add to previous draw Result Comment: Calc ulation may not be valid for patients over 70 years Performed By: #### 4 1000, 85514, 14554 ####[facility] [place] [address], [facility] Glucose [Mass/Vol] 105 mg/dL High 70-100 [facility] Comment on above: Order Comment: No: D o not add to previous draw Performed By: #### 4 1000, 12330, 54152 ####[facility] [place] [address], [facility] Potassium [Moles/Vol] 4.0 mmol/L Normal 3.5-5.1 [facility] Comment on above: Order Comment: No: D o not add to previous draw Performed By: #### 4 1000, 54733, 54884 ####[facility] [place] [address], [facility] Sodium [Moles/Vol] 133 mmol/L Low 136-145 [facility] Comment on [facility]: Order Comment: No: D o not add to previous draw Performed By: #### 4 1000, 73500, 79894 ####[facility] [place] [address], [facility] Urea nitrogen [Mass/Vol] 24 mg/dL Normal 7-25 [facility] Comment on above: Order Comment: No: D o not add to previous draw Performed By: #### 4 1000, 25510, 02375 ####[facility] CBC COMPLETE BLOOD COUNTon 0 05-23-2021 Erythrocyte distribution width (RBC) [Ratio] 14.3 % Normal 11.5-15.0 [facility] Comment on above: Order Comment: No: D o not add to previous draw Performed By: #### 5 0608 ####[facility] [facility].[address] Hematocrit (Bld) [Volume fraction] 29.4 % Low 39.0-50.0 [facility] Comment on above: Order Comment: No: D o not add to previous draw Performed By: #### 5 0608 ####[address] Hemoglobin (Bld) [Mass/Vol] 9.4 g/dL Low 13.0-17.0 [facility] Comment on above: Order Comment: No: D o not add to previous draw Performed By: #### 5 0608 ####[place] [address] [facility].[address] MCH (RBC) [Entitic mass] 28.5 pg Normal 27.0-33.0 [facility] Comment on above: Order Comment: No: D o not add to previous draw Performed By: #### 5 0608 ####[facility] [facility].[address] MCHC (RBC) [Mass/Vol] 32.0 g/dL Normal 32.0-35.0 [facility] Comment on above: Order Comment: No: D o not add to previous draw Performed By: #### 5 0608 ####[address] MCV (RBC) [Entitic vol] 89.1 fL Normal 82.0-98.0 [facility] Comment on above: Order Comment: No: D o not add to previous draw Performed By: #### 5 0608 ####[facility] [facility].[address] Nucleated RBC/100 WBC (Bld) [Ratio] 0 % Normal 0-0 [facility] Comment on above: Order Comment: No: D o not add to previous draw Performed By: #### 5 0608 ####[facility] [place] [address], [facility] PLAT CNT 342 10*3/uL Normal 150-400 [facility] Comment on above: Order Comment: No: D o not add to previous draw Performed By: #### 5 0608 ####[facility] [place] [address].[address] RBC (Bld) [#/Vol] 3.30 10*6/uL Low 4.20-5.70 [facility] Comment on above: Order Comment: No: D o not add to previous draw Performed By: #### 5 0608 ####[facility] [facility].[address] WBC (Bld) [#/Vol] 7.22 10*3/uL Normal 4.00-10.60 [facility] Comment on above: Order Comment: No: D o not add to previous draw Performed By: #### 5 0608 ####[facility] [place] [address], [facility] MAGNESIUM BLOODon 05-23-2021 Magnesium [Mass/Vol] 1.9 mg/dL Normal 1.9-2.7 [facility] Comment on above: Order Comment: No: D o not add to previous draw Performed By: #### 4 1000, 80931, 93672 ####[facility] [place] [address], [facility] PHOSPHORUS BLOODon Phosphate [Mass/Vol] 3.4 mg/dL Normal 2.5-5.0 [facility] Comment on above: Order Comment: No: D o not add to previous draw Performed By: #### 4 1000, 15519, 31766 ####[facility] [place] [address], [place] POC GLUCOSE LABon 05-23-2021 Glucose [Mass/Vol] 141 mg/dL High 70-100 [facility] Comment on above: Performed By: #### 8 5499 ####[facility] [place] [address], [place] Glucose [Mass/Vol] 147 mg/dL High 70-100 [facility] Comment on above: Performed By: #### 8 5499 ####[facility] [place] [address], [place] Glucose [Mass/Vol] 138 mg/dL High 70-100 [facility] Comment on above: Performed By: #### 8 5499 ####[facility] [place] [address], [place] Glucose [Mass/Vol] 112 mg/dL High 70-100 [facility] Comment on above: Performed By: #### 8 5499 ####[facility] [place] [address], [place] Glucose [Mass/Vol] 121 mg/dL High 70-100 [facility] Comment on above: Performed By: #### 8 5499 ####[facility] [place] [address], [place] POC SARS COV2 ANTIGEN NEGATI VEon 05-23-2021 POC SARS COV2 ANTIGEN NEG Negative Normal NEGATIVE [facility] Comment on above: Result Comment: Nega tive [...] of clinicalsigns and symptoms consistent with COVID-19.The [employer] COVID-19 Ag Card is a lateral flow immunoassay intended forthe qualitative detection of nucleocapsid protein antigen [id number] in direct nasal swabs from individuals within [...] Certificate ofAccreditation. Performed By: #### 3 1977 ####[place] [id number] [address] PORTABLE CHEST 1 VIEWon 04-26 PORTABLE CHEST 1 VIEW Normal [facility] Comment on above: Order Comment: evalu ate for Atelectasis VANCOMYCIN RANDOMon 05-23-20 21 VANCOMYCIN RAND 19.6 mcg/mL Normal [facility] Comment on above: Order Comment: No: D o not add to previous draw Performed By: #### 9 4980 ####[place] [address] [address] BASIC METABOLIC PANELon 04-25 Calcium [Mass/Vol] 8.6 mg/dL Normal 8.6-10.3 [facility] Comment on above: Order Comment: No: D o not add to previous draw Performed By: #### 0 0071, 91711, 30810 ####[facility] Chloride [Moles/Vol] 98 mmol/L Normal 98-107 [facility] Comment on above: Order Comment: No: D o not add to previous draw Performed By: #### 0 0071, 58499, 14750 ####[facility] [place] [address], [facility] CO2 [Moles/Vol] 33 mmol/L High 21-[address] [facility] Comment on above: Order Comment: No: D o not add to previous draw Performed By: #### 0 0071, 67129, 81226 ####[facility] [place] [address], [facility] Creatinine [Mass/Vol] 1.21 mg/dL Normal 0.70-1.30 [facility] Comment on above: Order Comment: No: D o not add to previous draw Performed By: #### 0 0071, 36565, 88902 ####[facility] [facility] eGFR- non- 58 ml/min/1.73sq m Abnormal >60 [facility] Comment on above: Order Comment: No: D o not add to previous draw Result Comment: Calc ulation may not be valid for patients over 70 years Performed By: #### 0 0071, 94966, 32166 ####[facility] [place] [address], [facility] GFR/1.73 sq M.predicted among blacks MDRD (S/P/Bld) [Vol rate/Area] mL/min/{1.73_m2} Normal >60 [facility] Comment on above: Order Comment: No: D o not add to previous draw Result Comment: Calc ulation may not be valid for patients over 70 years Performed By: #### 0 0071, 77182, 11769 ####[facility] [place] [address], [facility] Glucose [Mass/Vol] 115 mg/dL High 70-100 [facility] Comment on above: Order Comment: No: D o not add to previous draw Performed By: #### 0 0071, 71779, 19624 ####[facility] [place] [address], [facility] Potassium [Moles/Vol] 3.9 mmol/L Normal 3.5-5.1 [facility] Comment on above: Order Comment: No: D o not add to previous draw Performed By: #### 0 0071, 41262, 55015 ####[facility] [place] [address], [facility] Sodium [Moles/Vol] 135 mmol/L Low 136-145 [facility] Comment on above: Order Comment: No: D o not add to previous draw Performed By: #### 0 0071, 03268, 88512 ####[facility] [place] [address], [facility] Urea nitrogen [Mass/Vol] 22 mg/dL Normal 7-25 [facility] Comment on above: Order Comment: No: D o not add to previous draw Performed By: #### 0 1, 51360, 67714 ####[facility] [place] [address], [facility] CBC COMPLETE BLOOD COUNTon 0 05-22-2021 Erythrocyte distribution width (RBC) [Ratio] 14.3 % Normal 11.5-15.0 [facility] Comment on above: Order Comment: No: D o not add to previous draw Performed By: #### 5 0608 ####[facility] [place] [address], [facility] Hematocrit (Bld) [Volume fraction] 24.7 % Low 39.0-50.0 [facility] Comment on above: Order Comment: No: D o not add to previous draw Performed By: #### 5 0608 ####[facility] [id number], [facility] Hemoglobin (Bld) [Mass/Vol] 7.6 g/dL Low 13.0-17.0 [facility] Comment on above: Order Comment: No: D o not add to previous draw Performed By: #### 5 0608 ####[place] [address] [address] MCH (RBC) [Entitic mass] 28.3 pg Normal 27.0-33.0 [facility] Comment on above: Order Comment: No: D o not add to previous draw Performed By: #### 5 0608 ####[facility] MCHC (RBC) [Mass/Vol] 30.8 g/dL Low 32.0-35.0 [facility] Comment on above: Order Comment: No: D o not add to previous draw Performed By: #### 5 0608 ####[address] MCV (RBC) [Entitic vol] 91.8 fL Normal 82.0-98.0 [facility] Comment on above: Order Comment: No: D o not add to previous draw Performed By: #### 5 0608 ####[address] Nucleated RBC/100 WBC (Bld) [Ratio] 0 % Normal 0-0 [facility] Comment on above: Order Comment: No: D o not add to previous draw Performed By: #### 5 0608 ####[address] PLAT CNT 313 10*3/uL Normal 150-400 [facility] Comment on above: Order Comment: No: D o not add to previous draw Performed By: #### 5 0608 ####[address] RBC (Bld) [#/Vol] 2.69 10*6/uL Low 4.20-5.70 [facility] Comment on above: Order Comment: No: D o not add to previous draw Performed By: #### 5 0608 ####[facility] [place] [address], [facility] WBC (Bld) [#/Vol] 7.75 10*3/uL Normal 4.00-10.60 [facility] Comment on above: Order Comment: No: D o not add to previous draw Performed By: #### 5 0608 ####[facility] [place] [address], [facility] MAGNESIUM BLOODon 05-22-2021 Magnesium [Mass/Vol] 1.9 mg/dL Normal 1.9-2.7 [facility] Comment on above: Order Comment: No: D o not add to previous draw Performed By: #### 0 0071, 55116, 70312 ####[facility] [facility].[address] Operative Reporton Operative Report Normal [facility] POC GLUCOSE LABon 05-22-2021 Glucose [Mass/Vol] 126 mg/dL High 70-100 [facility] Comment on above: Performed By: #### 8 5499 ####[facility] [place] [address], [facility] Glucose [Mass/Vol] 136 mg/dL High 70-100 [facility] Comment on above: Performed By: #### 8 5499 ####[facility] [place] [address], [facility] Glucose [Mass/Vol] 156 mg/dL High 70-100 [facility] Comment on above: Performed By: #### 8 5499 ####[facility] [place] [address], [facility] PORTABLE CHEST 1 VIEWon 04-25 PORTABLE CHEST 1 VIEW Normal [facility] Comment on above: Order Comment: Evalu ate for Atelectasis, common RBC'S 1 UNITon 05-22-2021 CROSSMATCH INTERP 1 COMP Normal [facility] Comment on above: Performed By: #### 8 6001 ####[facility] [facility].[address] PRODUCT CODE 1 E0336 Normal [facility] Comment on above: Performed By: #### 8 6001 ####[facility] [facility].[address] PRODUCT STATUS 1 PT Normal [facility] Comment on above: Result Comment: Resu lt changed by IF on 05/22/2021 13:33. The previous value was XM.Result changed by IF on 05/23/2021 00:30. The previous value was IS. Performed By: #### 8 6001 ####[facility] [facility].[address] UNIT ABO 1 O Normal [facility] Comment on above: Performed By: #### 8 6001 ####[facility] [facility].[address] UNIT ID 1 [id number] Normal [facility] Comment on above: Performed By: #### 8 6001 ####[facility] [facility].[address] UNIT RH 1 Positive Normal [facility] Comment on above: Performed By: #### 8 6001 ####[facility] [place] [address], [facility] RBC'S 3 UNITSon 05-22-2021 CROSSMATCH INTERP 1 COMP Normal [facility] Comment on above: Order Comment: Hemog lobin < 9 gm/dl with known cardiac or cerebrovascular disease Performed By: #### 8 6003 ####[facility] [place] [address], [facility] CROSSMATCH INTERP 2 COMP Normal [facility] Comment on above: Order Comment: Hemog lobin < 9 gm/dl with known cardiac or cerebrovascular disease Performed By: #### 8 6003 ####[facility] [place] [address], [facility] CROSSMATCH INTERP 3 COMP Normal [facility] Comment on above: Order Comment: Hemog lobin < 9 gm/dl with known cardiac or cerebrovascular disease Performed By: #### 8 6003 ####[facility] [place] [address], [facility] PRODUCT CODE 1 E0336 Normal [facility] Comment on above: Order Comment: Hemog lobin < 9 gm/dl with known cardiac or cerebrovascular disease Performed By: #### 8 6003 ####[facility] [place] [address], [facility] PRODUCT CODE 2 E0685 Normal [facility] Comment on above: Order Comment: Hemog lobin < 9 gm/dl with known cardiac or cerebrovascular disease Performed By: #### 8 6003 ####[facility] [place] [address], [facility] PRODUCT CODE 3 E0336 Normal [facility] Comment on above: Order Comment: Hemog lobin < 9 gm/dl with known cardiac or cerebrovascular disease Performed By: #### 8 6003 ####[facility] [place] [address], [facility] PRODUCT STATUS 1 PT Normal [facility] Comment on above: Order Comment: Hemog lobin < 9 gm/dl with known cardiac or cerebrovascular disease Result Comment: Resu lt changed by IF on 05/22/2021 17:51. The previous value was XM.Result changed by IF on 05/23/2021 00:30. The previous value was IS. Performed By: #### 8 6003 ####[facility] [place] [address], [facility] PRODUCT STATUS 2 RE Normal [facility] Comment on above: Order Comment: Hemog lobin < 9 gm/dl with known cardiac or cerebrovascular disease Result Comment: Resu lt changed by IF on 05/24/2021 07:35. The previous value was XM. Performed By: #### 8 6003 ####[facility] [place] [address], [facility] PRODUCT STATUS 3 RE Normal [facility] Comment on above: Order Comment: Hemog lobin < 9 gm/dl with known cardiac or cerebrovascular disease Result Comment: Resu lt changed by IF on 05/24/2021 07:35. The previous value was XM. Performed By: #### 8 6003 ####[facility] [place] [address], [facility] UNIT ABO 1 O Normal [facility] Comment on above: Order Comment: Hemog lobin < 9 gm/dl with known cardiac or cerebrovascular disease Performed By: #### 8 6003 ####[facility] [place] [address], [facility] UNIT ABO 2 O Normal [facility] Comment on above: Order Comment: Hemog lobin < 9 gm/dl with known cardiac or cerebrovascular disease Performed By: #### 8 6003 ####[facility] [place] [address], [facility] UNIT ABO 3 O Normal [facility] Comment on above: Order Comment: Hemog lobin < 9 gm/dl with known cardiac or cerebrovascular disease Performed By: #### 8 6003 ####[facility] [place] [address], [facility] UNIT ID 1 [id number] Normal The [facility] Comment on above: Order Comment: Hemog lobin < 9 gm/dl with known cardiac or cerebrovascular disease Performed By: #### 8 6003 ####[facility] UNIT ID 2 [id number] Normal [facility] Comment on above: Order Comment: Hemog lobin < 9 gm/dl with known cardiac or cerebrovascular disease Performed By: #### 8 6003 ####[facility] UNIT ID 3 [id number] Normal [facility] Comment on above: Order Comment: Hemog lobin < 9 gm/dl with known cardiac or cerebrovascular disease Performed By: #### 8 6003 ####[facility] UNIT RH 1 Negative Normal [facility] Comment on above: Order Comment: Hemog lobin < 9 gm/dl with known cardiac or cerebrovascular disease Performed By: #### 8 6003 ####[facility] UNIT RH 2 Positive Normal [facility] Comment on above: Order Comment: Hemog lobin < 9 gm/dl with known cardiac or cerebrovascular disease Performed By: #### 8 6003 ####[facility] UNIT RH 3 Positive Normal [facility] Comment on above: Order Comment: Hemog lobin < 9 gm/dl with known cardiac or cerebrovascular disease Performed By: #### 8 6003 ####[facility] VANCOMYCIN TIMEDon 1 VANCOMYCIN TIMED 19.6 mcg/mL Normal [facility] Comment on above: Performed By: #### 0 0071, 82945, 35156 ####[facility] BASIC METABOLIC PANELon 09-2 Calcium [Mass/Vol] 8.5 mg/dL Low 8.6-10.3 [facility] Comment on above: Order Comment: No: D o not add to previous draw Performed By: #### 1 0070, 76578, 85059 ####[facility] [place] [address], [facility] Chloride [Moles/Vol] 96 mmol/L Low 98-107 [facility] Comment on above: Order Comment: No: D o not add to previous draw Performed By: #### 1 0070, 34298, 79309 ####[facility] [place] [address], [facility] CO2 [Moles/Vol] 37 mmol/L High 21-31 The [facility] Comment on above: Order Comment: No: D o not add to previous draw Performed By: #### 1 0070, 14086, 11091 ####[facility] [place] [address], [facility] Creatinine [Mass/Vol] 0.92 mg/dL Normal 0.70-1.30 [facility] Comment on above: Order Comment: No: D o not add to previous draw Performed By: #### 1 0070, 82012, 84434 ####[facility] [place] [address], [facility] GFR/1.73 sq M.predicted among blacks MDRD (S/P/Bld) [Vol rate/Area] mL/min/{1.73_m2} Normal >60 [facility] Comment on above: Order Comment: No: D o not add to previous draw Result Comment: Calc ulation may not be valid for patients over 70 years Performed By: #### 1 0070, 74646, 04875 ####[facility] [place] [address], [place] GFR/1.73 sq M.predicted among non-blacks MDRD (S/P/Bld) [Vol rate/Area] mL/min/{1.73_m2} Normal >60 [facility] Comment on above: Order Comment: No: D o not add to previous draw Result Comment: Calc ulation may not be valid for patients over 70 years Performed By: #### 1 0070, 29818, 05886 ####[facility] [place] [address], [facility] Glucose [Mass/Vol] 117 mg/dL High 70-100 [facility] Comment on above: Order Comment: No: D o not add to previous draw Performed By: #### 1 0070, 75643, 65804 ####[facility] [place] [address], [facility] Potassium [Moles/Vol] 3.9 mmol/L Normal 3.5-5.1 [facility] Comment on above: Order Comment: No: D o not add to previous draw Performed By: #### 1 0070, 66410, 97055 ####[facility] [place] [address], [facility] Sodium [Moles/Vol] 134 mmol/L Low 136-145 [facility] Comment on above: Order Comment: No: D o not add to previous draw Performed By: #### 1 0070, 05344, 49658 ####[facility] [place] [address], [facility] Urea nitrogen [Mass/Vol] 17 mg/dL Normal 7-25 [facility] Comment on above: Order Comment: No: D o not add to previous draw Performed By: #### 1 0070, 38762, 97743 ####[facility] [place] [address], [facility] CBC COMPLETE BLOOD COUNTon 0 - Erythrocyte distribution width (RBC) [Ratio] 14.3 % Normal 11.5-15.0 [facility] Comment on above: Order Comment: No: D o not add to previous draw Performed By: #### 5 0608 ####[facility] Hematocrit (Bld) [Volume fraction] 27.2 % Low 39.0-50.0 [facility] Comment on above: Order Comment: No: D o not add to previous draw Performed By: #### 5 0608 ####[facility] Hemoglobin (Bld) [Mass/Vol] 8.1 g/dL Low 13.0-17.0 [facility] Comment on above: Order Comment: No: D o not add to previous draw Performed By: #### 5 0608 ####[address] MCH (RBC) [Entitic mass] 27.6 pg Normal 27.0-33.0 [facility] Comment on above: Order Comment: No: D o not add to previous draw Performed By: #### 5 0608 ####[facility] MCHC (RBC) [Mass/Vol] 29.8 g/dL Low 32.0-35.0 [facility] Comment on above: Order Comment: No: D o not add to previous draw Performed By: #### 5 0608 ####[facility] MCV (RBC) [Entitic vol] 92.8 fL Normal 82.0-98.0 [facility] Comment on above: Order Comment: No: D o not add to previous draw Performed By: #### 5 0608 ####[facility] Nucleated RBC/100 WBC (Bld) [Ratio] 0 % Normal 0-0 [facility] Comment on above: Order Comment: No: D o not add to previous draw Performed By: #### 5 0608 ####[facility] [place] [address], [facility] PLAT CNT 329 10*3/uL Normal 150-400 [facility] Comment on above: Order Comment: No: D o not add to previous draw Performed By: #### 5 0608 ####[facility] [facility].[address] RBC (Bld) [#/Vol] 2.93 10*6/uL Low 4.20-5.70 [facility] Comment on above: Order Comment: No: D o not add to previous draw Performed By: #### 5 0608 ####[facility] [facility].[address] WBC (Bld) [#/Vol] 6.21 10*3/uL Normal 4.00-10.60 [facility] Comment on above: Order Comment: No: D o not add to previous draw Performed By: #### 5 0608 ####[place] [address] [facility].[address] MAGNESIUM BLOODon 05-21-2021 Magnesium [Mass/Vol] 2.0 mg/dL Normal 1.9-2.7 [facility] Comment on above: Order Comment: No: D o not add to previous draw Performed By: #### 1 0070, 18105, 26874 ####[facility] [facility].[address] Operative Reporton 1 Operative Report Normal [facility] PHOSPHORUS BLOODon 1 Phosphate [Mass/Vol] 4.0 mg/dL Normal 2.5-5.0 [facility] Comment on above: Order Comment: No: D o not add to previous draw Performed By: #### 1 0070, 10295, 51815 ####[facility] [place] [address], [facility] POC GLUCOSE LABon 05-21-2021 Glucose [Mass/Vol] 143 mg/dL High 70-100 [facility] Comment on above: Performed By: #### 8 5499 ####[facility] [place] [address], [place] Glucose [Mass/Vol] 123 mg/dL High 70-100 [facility] Comment on above: Performed By: #### 8 5499 ####[facility] [place] [address], [place] Glucose [Mass/Vol] 128 mg/dL High 70-100 [facility] Comment on above: Performed By: #### 8 5499 ####[facility] [place] [address], [place] Glucose [Mass/Vol] 158 mg/dL High 70-100 [facility] Comment on above: Performed By: #### 8 5499 ####[facility] [place] [address], [facility] PORTABLE CHEST 1 VIEWon 04-25 PORTABLE CHEST 1 VIEW Normal [facility] Comment on above: Order Comment: evalu ate for Atelectasis PROTHROMBIN TIMEon INR Coag (PPP) [Relative time] 1.12 {INR} Normal 0.91-1.16 [facility] Comment on above: Order Comment: No: D [...] OF ACTION, CLINICALEFFECTIVENESS, AND OPTIMAL THERAPEUTIC RANGE. [id number];108:231S-246S. Performed By: #### 5 6101 ####[place] [address] [address] PT Coag (PPP) [Time] 14.4 s Normal 12.3-14.8 [facility] Comment on above: Order Comment: No: D o not add to previous draw Result Comment: ALL RESULTS MUST BE INTERPRETED WITH RESPECT TO BLOOD DRAWING ARTIFACTOR DILUTION ERROR OF ANTICOAGULANT AT THE TIME OF SAMPLING. Performed By: #### 5 6101 ####[facility] BASIC METABOLIC PANELon 04-25 Calcium [Mass/Vol] 8.8 mg/dL Normal 8.6-10.3 [facility] Comment on above: Order Comment: No: D o not add to previous draw Performed By: #### 1 0070, 08350, 18578 ####[facility] [facility].[address] Chloride [Moles/Vol] 96 mmol/L Low 98-107 [facility] Comment on above: Order Comment: No: D o not add to previous draw Performed By: #### 1 0070, 62128, 98986 ####[facility] [place] [address], [facility] CO2 [Moles/Vol] 33 mmol/L High 21-31 [facility] Comment on above: Order Comment: No: D o not add to previous draw Performed By: #### 1 0, 15236, 29583 ####[facility] [place] [address], [facility] Creatinine [Mass/Vol] 0.90 mg/dL Normal 0.70-1.30 [facility] Comment on above: Order Comment: No: D o not add to previous draw Performed By: #### 1 0, 65290, 81338 ####[facility] [place] [address], [place] GFR/1.73 sq M.predicted among blacks MDRD (S/P/Bld) [Vol rate/Area] mL/min/{1.73_m2} Normal >60 [facility] Comment on above: Order Comment: No: D o not add to previous draw Result Comment: Calc ulation may not be valid for patients over 70 years Performed By: #### 1 0, 72658, 76436 ####[facility] [place] [address], [place] GFR/1.73 sq M.predicted among non-blacks MDRD (S/P/Bld) [Vol rate/Area] mL/min/{1.73_m2} Normal >60 [facility] Comment on above: Order Comment: No: D o not add to previous draw Result Comment: Calc ulation may not be valid for patients over 70 years Performed By: #### 1 0, 35901, 28213 ####[facility] [place] [address], [place] Glucose [Mass/Vol] 113 mg/dL High 70-100 [facility] Comment on above: Order Comment: No: D o not add to previous draw Performed By: #### 1 0, 78292, 54940 ####[facility] [place] [address], [place] Potassium [Moles/Vol] 3.6 mmol/L Normal 3.5-5.1 [facility] Comment on above: Order Comment: No: D o not add to previous draw Performed By: #### 1 0070, 63967, 77722 ####[facility] [place] [address], [facility] Sodium [Moles/Vol] 135 mmol/L Low 136-145 [facility] Comment on above: Order Comment: No: D o not add to previous draw Performed By: #### 1 0070, 48789, 96979 ####[facility] [place] [address], [facility] Urea nitrogen [Mass/Vol] 15 mg/dL Normal 7-25 [facility] Comment on above: Order Comment: No: D o not add to previous draw Performed By: #### 1 0, 71696, 97650 ####[facility] [place] [address], [facility] CBC COMPLETE BLOOD COUNTon 05-20-2021 Erythrocyte distribution width (RBC) [Ratio] 14.1 % Normal 11.5-15.0 [facility] Comment on above: Order Comment: No: D o not add to previous draw Performed By: #### 5 0608 ####[facility] [place] [address], [facility] Hematocrit (Bld) [Volume fraction] 28.9 % Low 39.0-50.0 [facility] Comment on above: Order Comment: No: D o not add to previous draw Performed By: #### 5 0608 ####[facility] [id number], [facility] Hemoglobin (Bld) [Mass/Vol] 8.9 g/dL Low 13.0-17.0 [facility] Comment on above: Order Comment: No: D o not add to previous draw Performed By: #### 5 0608 ####[facility] MCH (RBC) [Entitic mass] 28.3 pg Normal 27.0-33.0 [facility] Comment on above: Order Comment: No: D o not add to previous draw Performed By: #### 5 0608 ####[facility] [facility] MCHC (RBC) [Mass/Vol] 30.8 g/dL Low 32.0-35.0 [facility] Comment on above: Order Comment: No: D o not add to previous draw Performed By: #### 5 0608 ####[facility] [facility].[address] MCV (RBC) [Entitic vol] 92.0 fL Normal 82.0-98.0 [facility] Comment on above: Order Comment: No: D o not add to previous draw Performed By: #### 5 0608 ####[facility] [facility].[address] Nucleated RBC/100 WBC (Bld) [Ratio] 0 % Normal 0-0 [facility] Comment on above: Order Comment: No: D o not add to previous draw Performed By: #### 5 0608 ####[facility] [place] [address], [facility] PLAT CNT 339 10*3/uL Normal 150-400 [facility] Comment on above: Order Comment: No: D o not add to previous draw Performed By: #### 5 0608 ####[facility] [place] [address], [facility] RBC (Bld) [#/Vol] 3.14 10*6/uL Low 4.20-5.70 [facility] Comment on above: Order Comment: No: D o not add to previous draw Performed By: #### 5 0608 ####[facility] [place] [address], [facility] WBC (Bld) [#/Vol] 6.69 10*3/uL Normal 4.00-10.60 [facility] Comment on above: Order Comment: No: D o not add to previous draw Performed By: #### 5 0608 ####[facility] [facility].[address] Erythrocyte distribution width (RBC) [Ratio] 14.1 % Normal 11.5-15.0 [facility] Comment on above: Order Comment: No: D o not add to previous draw Performed By: #### 5 0608 ####[address] Hematocrit (Bld) [Volume fraction] 29.5 % Low 39.0-50.0 [facility] Comment on above: Order Comment: No: D o not add to previous draw Performed By: #### 5 0608 ####[place] [address] [address] Hemoglobin (Bld) [Mass/Vol] 9.3 g/dL Low 13.0-17.0 [facility] Comment on above: Order Comment: No: D o not add to previous draw Performed By: #### 5 0608 ####[address] MCH (RBC) [Entitic mass] 28.2 pg Normal 27.0-33.0 [facility] Comment on above: Order Comment: No: D o not add to previous draw Performed By: #### 5 0608 ####[facility] [place] [address], [facility] MCHC (RBC) [Mass/Vol] 31.5 g/dL Low 32.0-35.0 [facility] Comment on above: Order Comment: No: D o not add to previous draw Performed By: #### 5 0608 ####[address] [place] [address], [place] MCV (RBC) [Entitic vol] 89.4 fL Normal 82.0-98.0 [facility] Comment on above: Order Comment: No: D o not add to previous draw Performed By: #### 5 0608 ####[place] [address] [address] Nucleated RBC/100 WBC (Bld) [Ratio] 0 % Normal 0-0 [facility] Comment on above: Order Comment: No: D o not add to previous draw Performed By: #### 5 0608 ####[address] PLAT CNT 338 10*3/uL Normal 150-400 [facility] Comment on above: Order Comment: No: D o not add to previous draw Performed By: #### 5 0608 ####[address] RBC (Bld) [#/Vol] 3.30 10*6/uL Low 4.20-5.70 [facility] Comment on above: Order Comment: No: D o not add to previous draw Performed By: #### 5 0608 ####[address] WBC (Bld) [#/Vol] 6.66 10*3/uL Normal 4.00-10.60 [facility] Comment on above: Order Comment: No: D o not add to previous draw Performed By: #### 5 0608 ####[address] MAGNESIUM BLOODon 05-20-2021 Magnesium [Mass/Vol] 1.9 mg/dL Normal 1.9-2.7 [facility] Comment on above: Order Comment: No: D o not add to previous draw Performed By: #### 1 0070, 67332, 94369 ####[facility] [place] [address], [place] PHOSPHORUS BLOODon 1 Phosphate [Mass/Vol] 3.7 mg/dL Normal 2.5-5.0 [facility] Comment on above: Order Comment: No: D o not add to previous draw Performed By: #### 1 0070, 98371, 32726 ####[facility] [place] [address], [place] POC GLUCOSE LABon 05-20-2021 Glucose [Mass/Vol] 130 mg/dL High 70-100 [facility] Comment on above: Performed By: #### 8 5499 ####[facility] [place] [address], [place] Glucose [Mass/Vol] 119 mg/dL High 70-100 [facility] Comment on above: Performed By: #### 8 5499 ####[facility] [place] [address], [place] Glucose [Mass/Vol] 118 mg/dL High 70-100 [facility] Comment on above: Performed By: #### 8 5499 ####[facility] [place] [address], [place] Glucose [Mass/Vol] 118 mg/dL High 70-100 [facility] Comment on above: Performed By: #### 8 5499 ####[facility] [place] [address], [place] Glucose [Mass/Vol] 119 mg/dL High 70-100 [facility] Comment on above: Performed By: #### 8 5499 ####[facility] [place] [address], [place] PROTHROMBIN TIMEon 1 INR Coag (PPP) [Relative time] 1.09 {INR} Normal 0.91-1.16 [facility] Comment on above: Order Comment: No: [...] OF ACTION, CLINICALEFFECTIVENESS, AND OPTIMAL THERAPEUTIC RANGE. [id number];108:231S-246S. Performed By: #### 5 6101 ####[facility] [place] [address], [facility] PT Coag (PPP) [Time] 14.1 s Normal 12.3-14.8 [facility] Comment on above: Order Comment: No: D o not add to previous draw Result Comment: ALL RESULTS MUST BE INTERPRETED WITH RESPECT TO BLOOD DRAWING ARTIFACTOR DILUTION ERROR OF ANTICOAGULANT AT THE TIME OF SAMPLING. Performed By: #### 5 6101 ####[facility] [place] [address], [facility] TYPE AND SCREENon 05-20-2021 ABO INTERPRETATION O Normal [facility] Comment on above: Performed By: #### 6 2586 ####[facility] [place] [address], [facility] RH INTERPRETATION Positive Normal The [facility] Comment on above: Performed By: #### 6 2586 ####[facility] *MRSA/MSSA DNA NASALon 05-19 *MRSA/MSSA DNA NASAL Clinical Report: (D) Specimen: NASAL SWAB Collected: 05/19/2021 10:27 Status: Final Last Updated: 05/19/2021 15:02 MSSA DNA (Final) Negative MRSA DNA (Final) Negative Normal [facility] Comment on above: Performed By: #### 3 1595 ####[facility] CBC W/DIFFon 05-19-2021 ABS IMM GRANS 0.0 10*3/uL Normal 0.0-0.2 [facility] Comment on above: Order Comment: No: D o not add to previous draw Performed By: #### 5 0103 ####[facility] ABS NEUTROPHILS 4.3 10*3/uL Normal 1.6-7.6 [facility] Comment on above: Order Comment: No: D o not add to previous draw Performed By: #### 5 0103 ####[facility] Basophils (Bld) [#/Vol] 0.0 10*3/uL Normal 0.0-0.2 [facility] Comment on above: Order Comment: No: D o not add to previous draw Performed By: #### 5 0103 ####[facility] Basophils/100 WBC (Bld) 0.5 % Normal 0.0-1.0 [facility] Comment on above: Order Comment: No: D o not add to previous draw Performed By: #### 5 0103 ####[facility] [place] [address], [place] Eosinophils (Bld) [#/Vol] 0.2 10*3/uL Normal 0.0-0.5 [facility] Comment on above: Order Comment: No: D o not add to previous draw Performed By: #### 5 0103 ####[facility] Eosinophils/100 WBC (Bld) 3.1 % Normal 0.0-6.0 [facility] Comment on above: Order Comment: No: D o not add to previous draw Performed By: #### 5 0103 ####[facility] Erythrocyte distribution width (RBC) [Ratio] 14.2 % Normal 11.5-15.0 [facility] Comment on above: Order Comment: No: D o not add to previous draw Performed By: #### 5 0103 ####[facility] Hematocrit (Bld) [Volume fraction] 29.0 % Low 39.0-50.0 [facility] Comment on above: Order Comment: No: D o not add to previous draw Performed By: #### 5 3 ####[facility] Hemoglobin (Bld) [Mass/Vol] 9.2 g/dL Low 13.0-17.0 [facility] Comment on above: Order Comment: No: D o not add to previous draw Performed By: #### 5 0103 ####[facility] [place] [address], [facility] IMMATURE GRANS 0.5 % Normal 0.0-1.0 The [facility] Comment on above: Order Comment: No: D o not add to previous draw Performed By: #### 5 0103 ####[facility] Lymphocytes (Bld) [#/Vol] 1.0 10*3/uL Low 1.2-4.0 [facility] Comment on above: Order Comment: No: D o not add to previous draw Performed By: #### 5 0103 ####[facility] Lymphocytes/100 WBC (Bld) 15.9 % Low 20.0-45.0 [facility] Comment on above: Order Comment: No: D o not add to previous draw Performed By: #### 5 3 ####[address] MCH (RBC) [Entitic mass] 28.5 pg Normal 27.0-33.0 [facility] Comment on above: Order Comment: No: D o not add to previous draw Performed By: #### 5 3 ####[facility] MCHC (RBC) [Mass/Vol] 31.7 g/dL Low 32.0-35.0 [facility] Comment on above: Order Comment: No: D o not add to previous draw Performed By: #### 5 3 ####[place] [id number] [address] MCV (RBC) [Entitic vol] 89.8 fL Normal 82.0-98.0 [facility] Comment on above: Order Comment: No: D o not add to previous draw Performed By: #### 5 0103 ####[facility] [place] [address], [facility] Monocytes (Bld) [#/Vol] 0.6 10*3/uL Normal 0.1-1.0 [facility] Comment on above: Order Comment: No: D o not add to previous draw Performed By: #### 5 3 ####[facility] [place] [address], [facility] MONOS 10.2 % Normal 5.0-12.0 [facility] Comment on above: Order Comment: No: D o not add to previous draw Performed By: #### 5 0103 ####[facility] [id number], [facility] Neutrophils/100 WBC (Bld) 69.8 % Normal 40.0-72.0 [facility] Comment on above: Order Comment: No: D o not add to previous draw Performed By: #### 5 0103 ####[facility] [place] [address], [facility] Nucleated RBC/100 WBC (Bld) [Ratio] 0 % Normal 0-0 [facility] Comment on above: Order Comment: No: D o not add to previous draw Performed By: #### 5 0103 ####[facility] [place] [address], [facility] PLAT CNT 294 10*3/uL Normal 150-400 The [facility] Comment on above: Order Comment: No: D o not add to previous draw Performed By: #### 5 0103 ####[facility] [place] [address], [facility] RBC (Bld) [#/Vol] 3.23 10*6/uL Low 4.20-5.70 [facility] Comment on above: Order Comment: No: D o not add to previous draw Performed By: #### 5 0103 ####[facility] [facility] [id number], [place] WBC (Bld) [#/Vol] 6.09 10*3/uL Normal 4.00-10.60 [facility] Comment on above: Order Comment: No: D o not add to previous draw Performed By: #### 5 0103 ####[facility] [place] [address], [facility] COMP METABOLIC PANELon 05-19 Albumin [Mass/Vol] 2.8 g/dL Low 3.5-5.7 [facility] Comment on above: Order Comment: No: D o not add to previous draw Performed By: #### 4 1000, 46623, 96430 ####[facility] [place] [address], [facility] ALKALINE PHOSPH 59 IU/L Normal 34-104 The [facility] Comment on above: Order Comment: No: D o not add to previous draw Performed By: #### 4 1000, 19966, 38977 ####[facility] [place] [address], [facility] ALT [Catalytic activity/Vol] 9 U/L Normal 7-52 [facility] Comment on above: Order Comment: No: D o not add to previous draw Performed By: #### 4 1000, 49075, 46903 ####[facility] [place] [address], [facility] AST [Catalytic activity/Vol] 20 U/L Normal 13-39 [facility] Comment on above: Order Comment: No: D o not add to previous draw Performed By: #### 4 1000, 19801, 23720 ####[facility] [place] [address], [facility] Bilirubin [Mass/Vol] 0.6 mg/dL Normal 0.3-1.0 [facility] Comment on above: Order Comment: No: D o not add to previous draw Performed By: #### 4 1000, 84665, 70770 ####[facility] [place] [address], [facility] Calcium [Mass/Vol] 8.5 mg/dL Low 8.6-10.3 [facility] Comment on above: Order Comment: No: D o not add to previous draw Performed By: #### 4 1000, 25984, 75605 ####[facility] [place] [address], [place] Chloride [Moles/Vol] 98 mmol/L Normal 98-107 [facility] Comment on above: Order Comment: No: D o not add to previous draw Performed By: #### 4 1000, 28275, 44201 ####[facility] [place] [address], [place] CO2 [Moles/Vol] 31 mmol/L Normal 21-31 The [facility] Comment on above: Order Comment: No: D o not add to previous draw Performed By: #### 4 1000, 01347, 86344 ####[facility] [place] [address], [place] Creatinine [Mass/Vol] 0.74 mg/dL Normal 0.70-1.30 [facility] Comment on above: Order Comment: No: D o not add to previous draw Performed By: #### 4 1000, 73731, 55602 ####[facility] [place] [address], [place] GFR/1.73 sq M.predicted among blacks MDRD (S/P/Bld) [Vol rate/Area] mL/min/{1.73_m2} Normal >60 [facility] Comment on above: Order Comment: No: D o not add to previous draw Result Comment: Calc ulation may not be valid for patients over 70 years Performed By: #### 4 1000, 16051, 72207 ####[facility] [place] [address], [place] GFR/1.73 sq M.predicted among non-blacks MDRD (S/P/Bld) [Vol rate/Area] mL/min/{1.73_m2} Normal >60 [facility] Comment on above: Order Comment: No: D o not add to previous draw Result Comment: Calc ulation may not be valid for patients over 70 years Performed By: #### 4 1000, 78147, 61791 ####[facility] [place] [address], [place] Glucose [Mass/Vol] 143 mg/dL High 70-100 [facility] Comment on above: Order Comment: No: D o not add to previous draw Performed By: #### 4 1000, 09466, 30170 ####[facility] [place] [address], [place] Potassium [Moles/Vol] 3.4 mmol/L Low 3.5-5.1 [facility] Comment on above: Order Comment: No: D o not add to previous draw Performed By: #### 4 1000, 26284, 20354 ####[facility] [place] [address], [place] Protein [Mass/Vol] 6.7 g/dL Normal 6.0-8.3 [facility] Comment on above: Order Comment: No: D o not add to previous draw Performed By: #### 4 1000, 82350, 97769 ####[facility] [place] [address], [place] Sodium [Moles/Vol] 134 mmol/L Low 136-145 [facility] Comment on above: Order Comment: No: D o not add to previous draw Performed By: #### 4 1000, 02938, 73461 ####[facility] [place] [address], [place] Urea nitrogen [Mass/Vol] 14 mg/dL Normal 7-25 [facility] Comment on above: Order Comment: No: D o not add to previous draw Performed By: #### 4 1000, 83554, 53935 ####[facility] [place] [address], [place] MAGNESIUM BLOODon 05-19-2021 Magnesium [Mass/Vol] 1.9 mg/dL Normal 1.9-2.7 [facility] Comment on above: Order Comment: No: D o not add to previous draw Performed By: #### 4 1000, 23272, 47738 ####[facility] [place] [address], [facility] PHOSPHORUS BLOODon Phosphate [Mass/Vol] 3.1 mg/dL Normal 2.5-5.0 [facility] Comment on above: Order Comment: No: D o not add to previous draw Performed By: #### 4 1000, 41601, 17070 ####[facility] [place] [address], [facility] POC GLUCOSE LABon 05-19-2021 Glucose [Mass/Vol] 124 mg/dL High 70-100 [facility] Comment on above: Performed By: #### 8 5499 ####[facility] [place] [address], [place] Glucose [Mass/Vol] 132 mg/dL High 70-100 [facility] Comment on above: Performed By: #### 8 5499 ####[facility] [place] [address], [place] Glucose [Mass/Vol] 153 mg/dL High 70-100 [facility] Comment on above: Performed By: #### 8 5499 ####[facility] [place] [address], [place] Glucose [Mass/Vol] 133 mg/dL High 70-100 [facility] Comment on above: Performed By: #### 8 5499 ####[facility] [place] [address], [place] POC SARS COV2 ANTIGEN NEGATI VEon 05-19-2021 POC SARS COV2 ANTIGEN NEG Negative Normal NEGATIVE [facility] Comment on above: Result Comment: Nega tive [...] of clinicalsigns and symptoms consistent with COVID-19.The [employer] COVID-19 Ag Card is a lateral flow immunoassay intended forthe qualitative detection of nucleocapsid protein antigen podoSRCW-[id number] in direct nasal swabs from individuals within [...] Certificate ofAccreditation. Performed By: #### 3 1976 ####[address] VANCOMYCIN TIMEDon VANCOMYCIN TIMED 16.3 mcg/mL Normal The [facility] Comment on above: Performed By: #### 3 0953 ####[place] [id number] [address] CBC W/DIFFon 05-18-2021 ABS IMM GRANS 0.0 10*3/uL Normal 0.0-0.2 [facility] Comment on above: Order Comment: No: D o not add to previous draw Performed By: #### 5 0103 ####[address] ABS NEUTROPHILS 5.1 10*3/uL Normal 1.6-7.6 The [facility] Comment on above: Order Comment: No: D o not add to previous draw Performed By: #### 5 0103 ####[address] [place] [address], [facility] Basophils (Bld) [#/Vol] 0.0 10*3/uL Normal 0.0-0.2 [facility] Comment on above: Order Comment: No: D o not add to previous draw Performed By: #### 5 0103 ####[facility] [place] [address], [facility] Basophils/100 WBC (Bld) 0.4 % Normal 0.0-1.0 [facility] Comment on above: Order Comment: No: D o not add to previous draw Performed By: #### 5 0103 ####[facility] [place] [address], [facility] Eosinophils (Bld) [#/Vol] 0.2 10*3/uL Normal 0.0-0.5 [facility] Comment on above: Order Comment: No: D o not add to previous draw Performed By: #### 5 0103 ####[facility] [place] [address], [facility] Eosinophils/100 WBC (Bld) 2.6 % Normal 0.0-6.0 [facility] Comment on above: Order Comment: No: D o not add to previous draw Performed By: #### 5 0103 ####[facility] Erythrocyte distribution width (RBC) [Ratio] 14.1 % Normal 11.5-15.0 [facility] Comment on above: Order Comment: No: D o not add to previous draw Performed By: #### 5 0103 ####[facility] [place] [address], [facility] Hematocrit (Bld) [Volume fraction] 27.5 % Low 39.0-50.0 [facility] Comment on above: Order Comment: No: D o not add to previous draw Performed By: #### 5 0103 ####[facility] Hemoglobin (Bld) [Mass/Vol] 8.6 g/dL Low 13.0-17.0 [facility] Comment on above: Order Comment: No: D o not add to previous draw Performed By: #### 5 0103 ####[facility] [place] [address], [facility] IMMATURE GRANS 0.1 % Normal 0.0-1.0 The [facility] Comment on above: Order Comment: No: D o not add to previous draw Performed By: #### 5 0103 ####[address] Lymphocytes (Bld) [#/Vol] 1.3 10*3/uL Normal 1.2-4.0 [facility] Comment on above: Order Comment: No: D o not add to previous draw Performed By: #### 5 0103 ####[facility] [place] [address] Lymphocytes/100 WBC (Bld) 18.0 % Low 20.0-45.0 [facility] Comment on above: Order Comment: No: D o not add to previous draw Performed By: #### 5 0103 ####[facility] [place] [address], [facility] MCH (RBC) [Entitic mass] 28.7 pg Normal 27.0-33.0 [facility] Comment on above: Order Comment: No: D o not add to previous draw Performed By: #### 5 0103 ####[facility] [place] [address], [facility] MCHC (RBC) [Mass/Vol] 31.3 g/dL Low 32.0-35.0 [facility] Comment on above: Order Comment: No: D o not add to previous draw Performed By: #### 5 0103 ####[facility]3000 [facility].[address] MCV (RBC) [Entitic vol] 91.7 fL Normal 82.0-98.0 [facility] Comment on above: Order Comment: No: D o not add to previous draw Performed By: #### 5 0103 ####[facility] [place] [address], [facility] Monocytes (Bld) [#/Vol] 0.7 10*3/uL Normal 0.1-1.0 [facility] Comment on above: Order Comment: No: D o not add to previous draw Performed By: #### 5 0103 ####[facility] [facility].[address] MONOS 10.0 % Normal 5.0-12.0 [facility] Comment on above: Order Comment: No: D o not add to previous draw Performed By: #### 5 0103 ####[facility] [facility].[address] Neutrophils/100 WBC (Bld) 68.9 % Normal 40.0-72.0 [facility] Comment on above: Order Comment: No: D o not add to previous draw Performed By: #### 5 0103 ####[facility] [facility].[address] Nucleated RBC/100 WBC (Bld) [Ratio] 0 % Normal 0-0 [facility] Comment on above: Order Comment: No: D o not add to previous draw Performed By: #### 5 0103 ####[facility] [place] [address], [facility] PLAT CNT 288 10*3/uL Normal 150-400 The [facility] Comment on above: Order Comment: No: D o not add to previous draw Performed By: #### 5 0103 ####[facility] RBC (Bld) [#/Vol] 3.00 10*6/uL Low 4.20-5.70 [facility] Comment on above: Order Comment: No: D o not add to previous draw Performed By: #### 5 0103 ####[facility] [place] [address], [facility] WBC (Bld) [#/Vol] 7.40 10*3/uL Normal 4.00-10.60 [facility] Comment on above: Order Comment: No: D o not add to previous draw Performed By: #### 5 0103 ####[facility] [facility] COMP METABOLIC PANELon 05-18 Albumin [Mass/Vol] 2.7 g/dL Low 3.5-5.7 [facility] Comment on above: Order Comment: No: D o not add to previous draw Performed By: #### 4 1000, 47436, 09711, 41337 ####[facility] ALKALINE PHOSPH 62 IU/L Normal 34-104 The [facility] Comment on above: Order Comment: No: D o not add to previous draw Performed By: #### 4 1000, 95808, 97926, 84221 ####[facility] ALT [Catalytic activity/Vol] 11 U/L Normal 7-52 [facility] Comment on above: Order Comment: No: D o not add to previous draw Performed By: #### 4 1000, 26613, 91385, 21238 ####[facility] [place] [address], [facility] AST [Catalytic activity/Vol] 31 U/L Normal 13-39 [facility] Comment on above: Order Comment: No: D o not add to previous draw Performed By: #### 4 1000, 71433, 07310, 76580 ####[facility] [place] [address], [place] Bilirubin [Mass/Vol] 0.8 mg/dL Normal 0.3-1.0 [facility] Comment on above: Order Comment: No: D o not add to previous draw Performed By: #### 4 1000, 62839, 72783, 09227 ####[facility] [place] [address], [place] Calcium [Mass/Vol] 8.0 mg/dL Low 8.6-10.3 [facility] Comment on above: Order Comment: No: D o not add to previous draw Performed By: #### 4 1000, 32289, 19755, 34112 ####[facility] [place] [address], [place] Chloride [Moles/Vol] 98 mmol/L Normal 98-107 [facility] Comment on above: Order Comment: No: D o not add to previous draw Performed By: #### 4 1000, 03772, 75489, 23199 ####[facility] [place] [address], [facility] CO2 [Moles/Vol] 33 mmol/L High 21-[address] [facility] Comment on above: Order Comment: No: D o not add to previous draw Performed By: #### 4 1000, 57909, 81368, 50680 ####[facility] [place] [address], [place] Creatinine [Mass/Vol] 0.89 mg/dL Normal 0.70-1.30 [facility] Comment on above: Order Comment: No: D o not add to previous draw Performed By: #### 4 1000, 85127, 28396, 70048 ####[facility] [id number], [place] GFR/1.73 sq M.predicted among blacks MDRD (S/P/Bld) [Vol rate/Area] mL/min/{1.73_m2} Normal >60 [facility] Comment on above: Order Comment: No: D o not add to previous draw Result Comment: Calc ulation may not be valid for patients over 70 years Performed By: #### 4 1000, 28991, 52227, 39150 ####[facility] [place] [address], [facility] GFR/1.73 sq M.predicted among non-blacks MDRD (S/P/Bld) [Vol rate/Area] mL/min/{1.73_m2} Normal >60 [facility] Comment on above: Order Comment: No: D o not add to previous draw Result Comment: Calc ulation may not be valid for patients over 70 years Performed By: #### 4 1000, 24156, 73122, 90911 ####[facility] [id number], [facility] Glucose [Mass/Vol] 108 mg/dL High 70-100 [facility] Comment on above: Order Comment: No: D o not add to previous draw Performed By: #### 4 1000, 97835, 78527, 90424 ####[facility] [place] [address], [facility] Potassium [Moles/Vol] 3.7 mmol/L Normal 3.5-5.1 [facility] Comment on above: Order Comment: No: D o not add to previous draw Performed By: #### 4 1000, 40370, 16944, 53461 ####[facility] [place] [address], [place] Protein [Mass/Vol] 6.6 g/dL Normal 6.0-8.3 [facility] Comment on above: Order Comment: No: D o not add to previous draw Performed By: #### 4 1000, 62483, 55217, 33362 ####[facility] [place] [address], [facility] Sodium [Moles/Vol] 136 mmol/L Normal 136-145 [facility] Comment on above: Order Comment: No: D o not add to previous draw Performed By: #### 4 1000, 71973, 34981, 79916 ####[facility] [place] [address], [facility] Urea nitrogen [Mass/Vol] 16 mg/dL Normal 7-25 [facility] Comment on above: Order Comment: No: D o not add to previous draw Performed By: #### 4 1000, 56889, 68096, 30933 ####[facility] [place] [address], [facility] MAGNESIUM BLOODon 05-18-2021 Magnesium [Mass/Vol] 1.9 mg/dL Normal 1.9-2.7 [facility] Comment on above: Order Comment: No: D o not add to previous draw Performed By: #### 4 1000, 69451, 21204, 91713 ####[facility] [place] [address], [facility] PHOSPHORUS BLOODon Phosphate [Mass/Vol] 4.2 mg/dL Normal 2.5-5.0 [facility] Comment on above: Order Comment: No: D o not add to previous draw Performed By: #### 4 1000, 01396, 09817, 69391 ####[facility] [place] [address], [place] POC GLUCOSE LABon 05-18-2021 Glucose [Mass/Vol] 152 mg/dL High 70-100 [facility] Comment on above: Performed By: #### 8 5499 ####[facility] [place] [address], [place] Glucose [Mass/Vol] 140 mg/dL High 70-100 [facility] Comment on above: Performed By: #### 8 7219 ####[facility] [place] [address], [facility] Glucose [Mass/Vol] 202 mg/dL High 70-100 [facility] Comment on above: Performed By: #### 8 5499 ####[facility] [place] [address], [facility] Glucose [Mass/Vol] 121 mg/dL High 70-100 [facility] Comment on above: Performed By: #### 8 5499 ####[facility] [place] [address], [facility] PORTABLE CHEST 1 VIEWon 04-25 PORTABLE CHEST 1 VIEW Normal [facility] Comment on above: Order Comment: EValu ate for Effusion VANCOMYCIN TIMEDon VANCOMYCIN TIMED 10.2 mcg/mL Normal The [facility] Comment on above: Performed By: #### 4 1000, 34692, 93955, 26148 ####[facility] [place] [address], [facility] CBC W/DIFFon 05-17-2021 ABS IMM GRANS 0.0 10*3/uL Normal 0.0-0.2 The [facility] Comment on above: Order Comment: No: D o not add to previous draw Performed By: #### 5 0103 ####[facility] [place] [address], [facility] ABS NEUTROPHILS 3.6 10*3/uL Normal 1.6-7.6 The [facility] Comment on above: Order Comment: No: D o not add to previous draw Performed By: #### 5 0103 ####[facility] [place] [address], [facility] Basophils (Bld) [#/Vol] 0.1 10*3/uL Normal 0.0-0.2 [facility] Comment on above: Order Comment: No: D o not add to previous draw Performed By: #### 5 0103 ####[facility] [place] [address], [facility] Basophils/100 WBC (Bld) 0.9 % Normal 0.0-1.0 [facility] Comment on above: Order Comment: No: D o not add to previous draw Performed By: #### 5 0103 ####[facility] [place] [address], [facility] Eosinophils (Bld) [#/Vol] 0.1 10*3/uL Normal 0.0-0.5 [facility] Comment on above: Order Comment: No: D o not add to previous draw Performed By: #### 5 0103 ####[facility] [place] [address], [facility] Eosinophils/100 WBC (Bld) 0.9 % Normal 0.0-6.0 The [facility] Comment on above: Order Comment: No: D o not add to previous draw Performed By: #### 5 0103 ####[facility]3000 [facility].[address] Erythrocyte distribution width (RBC) [Ratio] 14.6 % Normal 11.5-15.0 [facility] Comment on above: Order Comment: No: D o not add to previous draw Performed By: #### 5 0103 ####[facility]3000 [facility].[address] Hematocrit (Bld) [Volume fraction] 27.7 % Low 39.0-50.0 [facility] Comment on above: Order Comment: No: D o not add to previous draw Performed By: #### 5 0103 ####[facility]3000 [place] [address], [facility] Hemoglobin (Bld) [Mass/Vol] 8.5 g/dL Low 13.0-17.0 [facility] Comment on above: Order Comment: No: D o not add to previous draw Performed By: #### 5 0103 ####[facility] IMMATURE GRANS 0.5 % Normal 0.0-1.0 The [facility] Comment on above: Order Comment: No: D o not add to previous draw Performed By: #### 5 0103 ####[facility] [place] [address] Lymphocytes (Bld) [#/Vol] 1.4 10*3/uL Normal 1.2-4.0 [facility] Comment on above: Order Comment: No: D o not add to previous draw Performed By: #### 5 0103 ####[facility] [place] [address] Lymphocytes/100 WBC (Bld) 23.3 % Normal 20.0-45.0 [facility] Comment on above: Order Comment: No: D o not add to previous draw Performed By: #### 5 0103 ####[address] MCH (RBC) [Entitic mass] 28.4 pg Normal 27.0-33.0 [facility] Comment on above: Order Comment: No: D o not add to previous draw Performed By: #### 5 0103 ####[facility] [place] [address] MCHC (RBC) [Mass/Vol] 30.7 g/dL Low 32.0-35.0 [facility] Comment on above: Order Comment: No: D o not add to previous draw Performed By: #### 5 0103 ####[facility] [place] [address] MCV (RBC) [Entitic vol] 92.6 fL Normal 82.0-98.0 [facility] Comment on above: Order Comment: No: D o not add to previous draw Performed By: #### 5 0103 ####[facility]3000 [place] [address], [facility] Monocytes (Bld) [#/Vol] 0.7 10*3/uL Normal 0.1-1.0 [facility] Comment on above: Order Comment: No: D o not add to previous draw Performed By: #### 5 0103 ####[facility]3000 [place] [address], [facility] MONOS 11.7 % Normal 5.0-12.0 [facility] Comment on above: Order Comment: No: D o not add to previous draw Performed By: #### 5 0103 ####[facility]3000 [place] [address], [facility] Neutrophils/100 WBC (Bld) 62.7 % Normal 40.0-72.0 [facility] Comment on above: Order Comment: No: D o not add to previous draw Performed By: #### 5 0103 ####[facility]3000 [facility].[address] Nucleated RBC/100 WBC (Bld) [Ratio] 0 % Normal 0-0 [facility] Comment on above: Order Comment: No: D o not add to previous draw Performed By: #### 5 0103 ####[facility]3000 [place] [address], [facility] PLAT CNT 325 10*3/uL Normal 150-400 The [facility] Comment on above: Order Comment: No: D o not add to previous draw Performed By: #### 5 0103 ####[facility]3000 [facility].[address] RBC (Bld) [#/Vol] 2.99 10*6/uL Low 4.20-5.70 [facility] Comment on above: Order Comment: No: D o not add to previous draw Performed By: #### 5 0103 ####[facility] [place] [address], [facility] WBC (Bld) [#/Vol] 5.79 10*3/uL Normal 4.00-10.60 [facility] Comment on above: Order Comment: No: D o not add to previous draw Performed By: #### 5 0103 ####[facility] COMP METABOLIC PANELon 05-17 Albumin [Mass/Vol] 2.8 g/dL Low 3.5-5.7 [facility] Comment on above: Order Comment: No: D o not add to previous draw Performed By: #### 4 1000, 21172, 20484 ####[facility]3000 [place] [address], [facility] ALKALINE PHOSPH 55 IU/L Normal 34-104 The [facility] Comment on above: Order Comment: No: D o not add to previous draw Performed By: #### 4 1000, 46679, 85751 ####[facility] ALT [Catalytic activity/Vol] 7 U/L Normal 7-52 [facility] Comment on above: Order Comment: No: D o not add to previous draw Performed By: #### 4 1000, 26521, 94815 ####[facility] [place] [address], [facility] AST [Catalytic activity/Vol] 11 U/L Low 13-39 [facility] Comment on above: Order Comment: No: D o not add to previous draw Performed By: #### 4 1000, 76412, 65484 ####[facility] [place] [address], [facility] Bilirubin [Mass/Vol] 0.6 mg/dL Normal 0.3-1.0 [facility] Comment on above: Order Comment: No: D o not add to previous draw Performed By: #### 4 1000, 34536, 90285 ####[facility] [id number], [facility] Calcium [Mass/Vol] 8.2 mg/dL Low 8.6-10.3 [facility] Comment on above: Order Comment: No: D o not add to previous draw Performed By: #### 4 1000, 65699, 15715 ####[facility] [place] [address], [place] Chloride [Moles/Vol] 102 mmol/L Normal 98-107 [facility] Comment on above: Order Comment: No: D o not add to previous draw Performed By: #### 4 1000, 63121, 62445 ####[facility] [place] [address], [place] CO2 [Moles/Vol] 31 mmol/L Normal 21-[address] [facility] Comment on above: Order Comment: No: D o not add to previous draw Performed By: #### 4 1000, 30752, 58995 ####[facility] [place] [address], [facility] Creatinine [Mass/Vol] 1.19 mg/dL Normal 0.70-1.30 [facility] Comment on above: Order Comment: No: D o not add to previous draw Performed By: #### 4 1000, 87425, 67243 ####[facility] [place] [address], [place] eGFR- non- 59 ml/min/1.73sq m Abnormal >60 The [facility] Comment on above: Order Comment: No: D o not add to previous draw Result Comment: Calc ulation may not be valid for patients over 70 years Performed By: #### 4 1000, 74532, 75495 ####[facility] [place] [address], [place] GFR/1.73 sq M.predicted among blacks MDRD (S/P/Bld) [Vol rate/Area] mL/min/{1.73_m2} Normal >60 [facility] Comment on above: Order Comment: No: D o not add to previous draw Result Comment: Calc ulation may not be valid for patients over 70 years Performed By: #### 4 1000, 73559, 53677 ####[facility] [place] [address], [place] Glucose [Mass/Vol] 99 mg/dL Normal 70-100 [facility] Comment on above: Order Comment: No: D o not add to previous draw Performed By: #### 4 1000, 73219, 89273 ####[facility] [place] [address], [place] Potassium [Moles/Vol] 3.7 mmol/L Normal 3.5-5.1 [facility] Comment on above: Order Comment: No: D o not add to previous draw Performed By: #### 4 1000, 01868, 43178 ####[facility] [place] [address], [place] Protein [Mass/Vol] 6.6 g/dL Normal 6.0-8.3 [facility] Comment on above: Order Comment: No: D o not add to previous draw Performed By: #### 4 1000, 05076, 33805 ####[facility] [place] [address], [place] Sodium [Moles/Vol] 138 mmol/L Normal 136-145 [facility] Comment on above: Order Comment: No: D o not add to previous draw Performed By: #### 4 1000, 56364, 29635 ####[facility] [place] [address], [place] Urea nitrogen [Mass/Vol] 16 mg/dL Normal 7-25 [facility] Comment on above: Order Comment: No: D o not add to previous draw Performed By: #### 4 1000, 28433, 47175 ####[facility] [place] [address], [place] MAGNESIUM BLOODon 05-17-2021 Magnesium [Mass/Vol] 2.0 mg/dL Normal 1.9-2.7 [facility] Comment on above: Order Comment: No: D o not add to previous draw Performed By: #### 4 1000, 22950, 16988 ####[facility] [place] [address], [place] PHOSPHORUS BLOODon Phosphate [Mass/Vol] 4.6 mg/dL Normal 2.5-5.0 [facility] Comment on above: Order Comment: No: D o not add to previous draw Performed By: #### 4 1000, 54116, 82223 ####[facility] [place] [address], [place] POC GLUCOSE LABon 05-17-2021 Glucose [Mass/Vol] 139 mg/dL High 70-100 [facility] Comment on above: Performed By: #### 8 5499 ####[facility] [place] [address], [place] Glucose [Mass/Vol] 100 mg/dL Normal 70-100 [facility] Comment on above: Performed By: #### 8 5499 ####[facility] [place] [address], [place] Glucose [Mass/Vol] 122 mg/dL High 70-100 [facility] Comment on above: Performed By: #### 8 5499 ####[facility] [place] [address], [place] Glucose [Mass/Vol] 107 mg/dL High 70-100 [facility] Comment on above: Performed By: #### 8 5499 ####[facility] PORTABLE CHEST 1 VIEWon 04-25 PORTABLE CHEST 1 VIEW Normal The [facility] Comment on above: Order Comment: evalu ate for Atelectasis *ANAEROBIC CULTUREon 021 *ANAEROBIC CULTURE Clinical Report: (D) Specimen/Source: TISSUE/INTRAOP SPEC Collected: 05/16/2021 10:48 Status: Final Last Updated: 05/21/2021 08:50 (1) STERNAL TISSUE ISO (Final) No Anaerobes Isolated Day 5 Normal The [facility] Comment on above: Order Comment: BRANDT AL TISSUE Performed By: #### 3 0312 ####[facility] *ANAEROBIC CULTURE Clinical Report: (D) Specimen/Source: SWAB/INTRAOP SPEC Collected: 05/16/2021 10:45 Status: Final Last Updated: 05/21/2021 08:50 (1) STERNAL WOUND ISO (Final) No Anaerobes Isolated Day 5 Normal [facility] Comment on above: Order Comment: BRANDT AL WOUND Performed By: #### 3 0312 ####[facility] *TISSUE CULTUREon 05-16-2021 *TISSUE CULTURE Normal The [facility] Comment on above: Order Comment: BRANDT AL TISSUE Performed By: #### 3 0338 ####[facility] [place], [place] [address] [place] [address] *WOUND CULTUREon 05-16-2021 *WOUND CULTURE Normal [facility] Comment on above: Order Comment: BRANDT AL WOUND Performed By: #### 3 0343 ####[facility] [place], [place] [id number] [place] [address] APTTon 05-16-2021 aPTT Coag (Bld) [Time] 32.6 s Normal 25.0-35.0 [facility] Comment on above: Order Comment: No: D [...] THIS PURPOSE. Performed By: #### 5 7307, 74617 ####[facility] [place] [address], [facility] BASIC METABOLIC PANELon 09-2020 Calcium [Mass/Vol] 8.5 mg/dL Low 8.6-10.3 [facility] Comment on above: Order Comment: No: D o not add to previous draw Performed By: #### 4 1000, 38331, 42868 ####[facility] [place] [address], [facility] Chloride [Moles/Vol] 101 mmol/L Normal 98-107 [facility] Comment on above: Order Comment: No: D o not add to previous draw Performed By: #### 4 1000, 56109, 04614 ####[facility] [place] [address], [facility] CO2 [Moles/Vol] 31 mmol/L Normal 21-[address] [facility] Comment on above: Order Comment: No: D o not add to previous draw Performed By: #### 4 1000, 32301, 21984 ####[facility] [place] [address], [facility] Creatinine [Mass/Vol] 0.66 mg/dL Low 0.70-1.30 [facility] Comment on above: Order Comment: No: D o not add to previous draw Performed By: #### 4 1000, 95510, 23598 ####[facility] [place] [address], [facility] GFR/1.73 sq M.predicted among blacks MDRD (S/P/Bld) [Vol rate/Area] mL/min/{1.73_m2} Normal >60 [facility] Comment on above: Order Comment: No: D o not add to previous draw Result Comment: Calc ulation may not be valid for patients over 70 years Performed By: #### 4 1000, 08807, 98218 ####[facility] [place] [address], [facility] GFR/1.73 sq M.predicted among non-blacks MDRD (S/P/Bld) [Vol rate/Area] mL/min/{1.73_m2} Normal >60 [facility] Comment on above: Order Comment: No: D o not add to previous draw Result Comment: Calc ulation may not be valid for patients over 70 years Performed By: #### 4 1000, , 69235 ####[facility]3000 [place] [address], [facility] Glucose [Mass/Vol] 117 mg/dL High 70-100 [facility] Comment on above: Order Comment: No: D o not add to previous draw Performed By: #### 4 1000, , 22145 ####[facility] [place] [address], [facility] Potassium [Moles/Vol] 4.1 mmol/L Normal 3.5-5.1 [facility] Comment on above: Order Comment: No: D o not add to previous draw Performed By: #### 4 1000, , 03355 ####[facility] [place] [address], [place] Sodium [Moles/Vol] 136 mmol/L Normal 136-145 [facility] Comment on above: Order Comment: No: D o not add to previous draw Performed By: #### 4 1000, , 00042 ####[facility] [place] [address], [place] Urea nitrogen [Mass/Vol] 11 mg/dL Normal 7-25 [facility] Comment on above: Order Comment: No: D o not add to previous draw Performed By: #### 4 1000, 15950, 25909 ####[facility]3000 [facility].[address] CBC COMPLETE BLOOD COUNTon 0 05-16-2021 Erythrocyte distribution width (RBC) [Ratio] 14.5 % Normal 11.5-15.0 [facility] Comment on above: Order Comment: No: D o not add to previous draw Performed By: #### 5 0608 ####[facility] Hematocrit (Bld) [Volume fraction] 30.5 % Low 39.0-50.0 [facility] Comment on above: Order Comment: No: D o not add to previous draw Performed By: #### 5 0608 ####[facility]3000 [facility].[address] Hemoglobin (Bld) [Mass/Vol] 9.5 g/dL Low 13.0-17.0 [facility] Comment on above: Order Comment: No: D o not add to previous draw Performed By: #### 5 0608 ####[facility] MCH (RBC) [Entitic mass] 28.5 pg Normal 27.0-33.0 [facility] Comment on above: Order Comment: No: D o not add to previous draw Performed By: #### 5 0608 ####[facility] [place] [address], [facility] MCHC (RBC) [Mass/Vol] 31.1 g/dL Low 32.0-35.0 [facility] Comment on above: Order Comment: No: D o not add to previous draw Performed By: #### 5 0608 ####[facility] MCV (RBC) [Entitic vol] 91.6 fL Normal 82.0-98.0 [facility] Comment on above: Order Comment: No: D o not add to previous draw Performed By: #### 5 0608 ####[facility] Nucleated RBC/100 WBC (Bld) [Ratio] 0 % Normal 0-0 [facility] Comment on above: Order Comment: No: D o not add to previous draw Performed By: #### 5 0608 ####[facility] PLAT CNT 353 10*3/uL Normal 150-400 [facility] Comment on above: Order Comment: No: D o not add to previous draw Performed By: #### 5 0608 ####[facility] RBC (Bld) [#/Vol] 3.33 10*6/uL Low 4.20-5.70 [facility] Comment on above: Order Comment: No: D o not add to previous draw Performed By: #### 5 0608 ####[facility] WBC (Bld) [#/Vol] 5.98 10*3/uL Normal 4.00-10.60 [facility] Comment on above: Order Comment: No: D o not add to previous draw Performed By: #### 5 0608 ####[facility] [place] [address] LACTATE BLOODon 05-16-2021 Lactate [Moles/Vol] 0.6 mmol/L Normal .5-2.2 [facility] Comment on above: Order Comment: No: D o not add to previous draw Performed By: #### 1 0054 ####[facility] [place] [address], [facility] Lactate [Moles/Vol] 0.8 mmol/L Normal .5-2.2 [facility] Comment on above: Order Comment: No: D o not add to previous draw Performed By: #### 1 0054 ####[facility] [id number], [facility] MAGNESIUM BLOODon 05-16-2021 Magnesium [Mass/Vol] 1.9 mg/dL Normal 1.9-2.7 [facility] Comment on above: Order Comment: No: D o not add to previous draw Performed By: #### 4 1000, 29258, 42278 ####[facility] [place] [address], [facility] OSMOLALITY BLOODon 1 Osmolality [Osmolality] 292 mosm/kg Normal 285-305 [facility] Comment on above: Order Comment: No: D o not add to previous draw Performed By: #### 3 9301, 19374 ####[facility] [place] [address], [facility] Osmolality [Osmolality] 297 mosm/kg Normal 285-305 [facility] Comment on above: Order Comment: No: D o not add to previous draw Performed By: #### 3 9301, 80802 ####[facility] [id number], [facility] PHOSPHORUS BLOODon 1 Phosphate [Mass/Vol] 4.3 mg/dL Normal 2.5-5.0 [facility] Comment on above: Order Comment: No: D o not add to previous draw Performed By: #### 4 1000, 66988, 30384 ####[facility] [id number], [place] POC GLUCOSE LABon 05-16-2021 Glucose [Mass/Vol] 121 mg/dL High 70-100 [facility] Comment on above: Performed By: #### 8 5499 ####[facility]3000 [place] [address], [facility] Glucose [Mass/Vol] 126 mg/dL High 70-100 [facility] Comment on above: Performed By: #### 8 5499 ####[facility] [facility] [id number], [facility] Glucose [Mass/Vol] 133 mg/dL High 70-100 [facility] Comment on above: Performed By: #### 8 5499 ####[facility] [place] [address], [facility] Glucose [Mass/Vol] 131 mg/dL High 70-100 [facility] Comment on above: Performed By: #### 8 5499 ####[facility] PORTABLE CHEST 1 VIEWon 04-25 PORTABLE CHEST 1 VIEW Normal [facility] Comment on above: Order Comment: Check NG Tube Position PORTABLE CHEST 1 VIEW Normal [facility] Comment on above: Order Comment: Evalu ate Atelectasis PROTHROMBIN TIMEon INR Coag (PPP) [Relative time] 1.15 {INR} Normal 0.91-1.16 [facility] Comment on above: Order Comment: No: D [...] OF ACTION, CLINICALEFFECTIVENESS, AND OPTIMAL THERAPEUTIC RANGE. [id number]. Performed By: #### 5 7307, 81561 ####[facility] PT Coag (PPP) [Time] 14.7 s Normal 12.3-14.8 [facility] Comment on above: Order Comment: No: D o not add to previous draw Result Comment: ALL RESULTS MUST BE INTERPRETED WITH RESPECT TO BLOOD DRAWING ARTIFACTOR DILUTION ERROR OF ANTICOAGULANT AT THE TIME OF SAMPLING. Performed By: #### 5 7307, 25887 ####[facility] TRIGLYCERIDES BLOODon 2020 Triglyceride [Mass/Vol] 95 mg/dL Normal 40-149 [facility] Comment on above: Order Comment: No: D o not add to previous draw Result Comment: TRIG LYCERIDE REFERENCE RANGE:20 YEARS AND OLDER CARDIOVASCULAR RISKLESS THAN 150 mg/dl LOW [id number] TO 199 mg/dl BORDERLINE [id number] mg/dl AND GREATER HIGH RISK Performed By: #### 3 9301, 45030 ####[place] [address] [facility].[address] Triglyceride [Mass/Vol] 98 mg/dL Normal 40-149 [facility] Comment on above: Order Comment: No: D o not add to previous draw Result Comment: TRIG LYCERIDE REFERENCE RANGE:20 YEARS AND OLDER CARDIOVASCULAR RISKLESS THAN 150 mg/dl LOW [id number] TO 199 mg/dl BORDERLINE [id number] mg/dl AND GREATER HIGH RISK Performed By: #### 3 9301, 33861 ####[facility] [place] [address], [facility] *BLOOD CULTUREon 05-15-2021 *BLOOD CULTURE Clinical Report: (D) Specimen: BLOOD CULTURE Collected: 05/15/2021 11:35 Status: Final Last Updated: 05/20/2021 14:11 (1) Prior to antibiotic administration CULT RES (Final) No Growth Day 5 Normal [facility] Comment on above: Order Comment: Prior to antibiotic administration Performed By: #### 3 0313 ####[place] [address] [address] APTTon 05-15-2021 aPTT Coag (Bld) [Time] 30.4 s Normal 25.0-35.0 [facility] Comment on above: Result Comment: ALL [...] THIS PURPOSE. Performed By: #### 5 7307, 40873 ####[place] [address] [address] ARTERIAL BLOOD GAS W/COOXon 05-15-2021 BASE EXCESS 2 mmol/L Normal -2-3 [facility] Comment on above: Order Comment: RESUL TS CHECKED AND CALLED. ACCURATELY READ BACK BY RADHIKA ED CHARGE. Performed By: #### 4 0055 ####[address] COHB 2.3 % High 0.0-1.5 [facility] Comment on above: Order Comment: RESUL TS CHECKED AND CALLED. ACCURATELY READ BACK BY RADHIKA ED CHARGE. Performed By: #### 4 0055 ####[place] [address] [address] DELIVERY SYSTEMS [place] Normal [facility] Comment on above: Order Comment: RESUL TS CHECKED AND CALLED. ACCURATELY READ BACK BY RADHIKA ED CHARGE. Performed By: #### 4 0055 ####[facility]3000 [facility].[address] HCO3 (Bld) [Moles/Vol] 29 mmol/L High 21-28 [facility] Comment on above: Order Comment: RESUL TS CHECKED AND CALLED. ACCURATELY READ BACK BY RADHIKA ED CHARGE. Performed By: #### 4 0055 ####[facility]3000 [facility].[address] LPM 5.0 LPM Normal [facility] Comment on above: Order Comment: RESUL TS CHECKED AND CALLED. ACCURATELY READ BACK BY RADHIKA ED CHARGE. Performed By: #### 4 0055 ####[address] METHB 1.1 % Normal 0.0-1.5 [facility] Comment on above: Order Comment: RESUL TS CHECKED AND CALLED. ACCURATELY READ BACK BY RADHIKA ED CHARGE. Performed By: #### 4 0055 ####[facility] [facility].[address] MODALITY NC Normal [facility] Comment on above: Order Comment: RESUL TS CHECKED AND CALLED. ACCURATELY READ BACK BY RADHIKA ED CHARGE. Performed By: #### 4 0055 ####[address] Oxygen (Bld) [Partial pressure] 83 mm[Hg] Normal 83-108 [facility] Comment on above: Order Comment: RESUL TS CHECKED AND CALLED. ACCURATELY READ BACK BY RADHIKA ED CHARGE. Performed By: #### 4 0055 ####[address] Oxygen saturation in Blood 94.8 % Normal 94.0-97.0 [facility] Comment on above: Order Comment: RESUL TS CHECKED AND CALLED. ACCURATELY READ BACK BY [facility] CHARGE. Performed By: #### 4 0055 ####[address] PCO2 58 mmHg Critically high 35-45 The [facility] Comment on above: Order Comment: RESUL TS CHECKED AND CALLED. ACCURATELY READ BACK BY [facility] CHARGE. Performed By: #### 4 0055 ####[address] pH (Bld) 7.31 [pH] Low 7.35-7.45 The [facility] Comment on above: Order Comment: RESUL TS CHECKED AND CALLED. ACCURATELY READ BACK BY [facility] CHARGE. Performed By: #### 4 0055 ####[address] THB 10.2 g/dL Low 12.0-16.3 [facility] Comment on above: Order Comment: RESUL TS CHECKED AND CALLED. ACCURATELY READ BACK BY [facility] ED CHARGE. Performed By: #### 4 0055 ####[address] BNP (B-TYPE NATRIURETIC PEPT MAX)on 05-15-2021 Natriuretic peptide B (Bld) [Mass/Vol] 136 pg/mL High 0-100 [facility] Comment on above: Order Comment: Yes: Add to Previous draw if able Result Comment: Give n the appropriate clinical setting a BNP result of >100 pg/mLindicates congestive heart failure. Performed By: #### 8 5123 ####[address] CBC W/DIFFon 05-15-2021 ABS IMM GRANS 0.0 10*3/uL Normal 0.0-0.2 The [facility] Comment on above: Performed By: #### 5 0103 ####[address] ABS NEUTROPHILS 5.0 10*3/uL Normal 1.6-7.6 The [facility] Comment on above: Performed By: #### 5 0103 ####[facility] [place] [address], [facility] Basophils (Bld) [#/Vol] 0.0 10*3/uL Normal 0.0-0.2 The [facility] Comment on above: Performed By: #### 5 0103 ####[facility] [place] [address], [facility] Basophils/100 WBC (Bld) 0.6 % Normal 0.0-1.0 The [facility] Comment on above: Performed By: #### 5 0103 ####[facility] [place] [address], [facility] Eosinophils (Bld) [#/Vol] 0.1 10*3/uL Normal 0.0-0.5 The [facility] Comment on above: Performed By: #### 5 0103 ####[facility] [place] [address], [facility] Eosinophils/100 WBC (Bld) 0.7 % Normal 0.0-6.0 The [facility] Comment on above: Performed By: #### 5 0103 ####[facility] Erythrocyte distribution width (RBC) [Ratio] 14.5 % Normal 11.5-15.0 The [facility] Comment on above: Performed By: #### 5 0103 ####[facility] [place] [address], [facility] Hematocrit (Bld) [Volume fraction] 32.5 % Low 39.0-50.0 The [facility] Comment on above: Performed By: #### 5 3 ####[facility] [place] [address], [facility] Hemoglobin (Bld) [Mass/Vol] 10.3 g/dL Low 13.0-17.0 The [facility] Comment on above: Performed By: #### 5 0103 ####[facility] IMMATURE GRANS 0.6 % Normal 0.0-1.0 The [facility] Comment on above: Performed By: #### 5 0103 ####[facility] Lymphocytes (Bld) [#/Vol] 1.1 10*3/uL Low 1.2-4.0 The [facility] Comment on above: Performed By: #### 5 0103 ####[address] Lymphocytes/100 WBC (Bld) 15.9 % Low 20.0-45.0 The [facility] Comment on above: Performed By: #### 5 0103 ####[address] MCH (RBC) [Entitic mass] 28.8 pg Normal 27.0-33.0 The [facility] Comment on above: Performed By: #### 5 0103 ####[place] [address] MCHC (RBC) [Mass/Vol] 31.7 g/dL Low 32.0-35.0 The [facility] Comment on above: Performed By: #### 5 0103 ####[facility] MCV (RBC) [Entitic vol] 90.8 fL Normal 82.0-98.0 The [facility] Comment on above: Performed By: #### 5 3 ####[address] Monocytes (Bld) [#/Vol] 0.8 10*3/uL Normal 0.1-1.0 The [facility] Comment on above: Performed By: #### 5 0103 ####[facility] [place] [address], [facility] MONOS 11.2 % Normal 5.0-12.0 [facility] Comment on above: Performed By: #### 5 0103 ####[facility] Neutrophils/100 WBC (Bld) 71.0 % Normal 40.0-72.0 The [facility] Comment on above: Performed By: #### 5 0103 ####[facility] Nucleated RBC/100 WBC (Bld) [Ratio] 0 % Normal 0-0 The [facility] Comment on above: Performed By: #### 5 0103 ####[facility] PLAT CNT 376 10*3/uL Normal 150-400 The [facility] Comment on above: Performed By: #### 5 0103 ####[facility] RBC (Bld) [#/Vol] 3.58 10*6/uL Low 4.20-5.70 [facility] Comment on above: Performed By: #### 5 0103 ####[facility] WBC (Bld) [#/Vol] 7.03 10*3/uL Normal 4.00-10.60 The [facility] Comment on above: Performed By: #### 5 3 ####[facility] COMP METABOLIC PANELon 05-15 Albumin [Mass/Vol] 3.2 g/dL Low 3.5-5.7 The [facility] Comment on above: Performed By: #### 4 1000, 00308, 83582, 22246 ####[facility] [place] [address], [facility] ALKALINE PHOSPH 84 IU/L Normal 34-104 The [facility] Comment on above: Performed By: #### 4 1000, 25258, 62737, 69174 ####[facility] [place] [address], [facility] ALT [Catalytic activity/Vol] 11 U/L Normal 7-52 The [facility] Comment on above: Performed By: #### 4 1000, 23969, 53996, 22933 ####[facility] [place] [address], [facility] AST [Catalytic activity/Vol] 12 U/L Low 13-39 The [facility] Comment on above: Performed By: #### 4 1000, 68505, 23662, 64235 ####[facility] [place] [address], [facility] Bilirubin [Mass/Vol] 0.9 mg/dL Normal 0.3-1.0 The [facility] Comment on above: Performed By: #### 4 1000, 49364, 23311, 50006 ####[facility] [id number], [place] Calcium [Mass/Vol] 8.3 mg/dL Low 8.6-10.3 The [facility] Comment on above: Performed By: #### 4 1000, 77157, 16451, 88634 ####[facility] [place] [address], [place] Chloride [Moles/Vol] 101 mmol/L Normal 98-107 The [facility] Comment on above: Performed By: #### 4 1000, 49186, 30627, 00701 ####[facility] [place] [address], [place] CO2 [Moles/Vol] 30 mmol/L Normal 21-31 The [facility] Comment on above: Performed By: #### 4 1000, 21779, 42625, 25419 ####[facility] [place] [address], [place] Creatinine [Mass/Vol] 0.92 mg/dL Normal 0.70-1.30 The [facility] Comment on above: Performed By: #### 4 1000, 51783, 08006, 89421 ####[facility] [place] [address], [place] GFR/1.73 sq M.predicted among blacks MDRD (S/P/Bld) [Vol rate/Area] mL/min/{1.73_m2} Normal >60 The [facility] Comment on above: Result Comment: Calc ulation may not be valid for patients over 70 years Performed By: #### 4 1000, 39370, 11695, 91449 ####[facility] [place] [address], [place] GFR/1.73 sq M.predicted among non-blacks MDRD (S/P/Bld) [Vol rate/Area] mL/min/{1.73_m2} Normal >60 The [facility] Comment on above: Result Comment: Calc ulation may not be valid for patients over 70 years Performed By: #### 4 1000, 30224, 74696, 63558 ####[facility] [place] [address], [place] Glucose [Mass/Vol] 138 mg/dL High 70-100 [facility] Comment on above: Performed By: #### 4 1000, 66490, 39296, 54060 ####[facility] [place] [address], [place] Potassium [Moles/Vol] 4.1 mmol/L Normal 3.5-5.1 The [facility] Comment on above: Performed By: #### 4 1000, 66740, 67107, 82803 ####[facility] [place] [address], [facility] Protein [Mass/Vol] 7.4 g/dL Normal 6.0-8.3 The [facility] Comment on above: Performed By: #### 4 1000, 61609, 66458, 48108 ####[facility] [place] [address], [place] Sodium [Moles/Vol] 136 mmol/L Normal 136-145 The [facility] Comment on above: Performed By: #### 4 1000, 43690, 41657, 25291 ####[facility] [place] [address], [place] Urea nitrogen [Mass/Vol] 8 mg/dL Normal 7-25 The [facility] Comment on above: Performed By: #### 4 1000, 75709, 24637, 90500 ####[facility] [place] [address], [facility] LACTATE BLOODon 05-15-2021 Lactate [Moles/Vol] 0.7 mmol/L Normal .5-2.2 The [facility] Comment on above: Order Comment: Repea t Lactate in 4 hours Performed By: #### 1 0054 ####[facility] [place] [address], [place] MAGNESIUM BLOODon 05-15-2021 Magnesium [Mass/Vol] 2.0 mg/dL Normal 1.9-2.7 The [facility] Comment on above: Performed By: #### 4 1000, 33091, 55723, 86354 ####[facility] [place] [address], [place] PHOSPHORUS BLOODon Phosphate [Mass/Vol] 6.0 mg/dL High 2.5-5.0 The [facility] Comment on above: Performed By: #### 4 1000, 63080, 24986, 53494 ####[facility] [facility].[address] POC GLUCOSE LABon 05-15-2021 Glucose [Mass/Vol] 225 mg/dL High 70-100 [facility] Comment on above: Performed By: #### 8 5499 ####[facility] [facility].[address] POC SARS COV2 ANTIGEN NEGATI VEon 05-15-2021 POC SARS COV2 ANTIGEN NEG Negative Normal NEGATIVE The [facility] Comment on above: Result Comment: Nega tive [...] of clinicalsigns and symptoms consistent with COVID-19.[employer] COVID-19 Ag Card is a lateral flow immunoassay intended forthe qualitative detection of nucleocapsid protein antigen [id number] in direct nasal swabs from individuals within [...] Performed By: #### 3 1977 ####[facility] [place] [address], [facility] PORTABLE CHEST 1 VIEWon 04-25 PORTABLE CHEST 1 VIEW Normal The [facility] Comment on above: Order Comment: Evalu ate for Infiltrates, hypoxia, infected sternotomy site PROTHROMBIN TIMEon INR Coag (PPP) [Relative time] 1.07 {INR} Normal 0.91-1.16 [facility] Comment on above: Result Comment: ACCC P RECOMMENDED INR FOR WARFARIN THERAPY CONDITION INRPROPHYLAXIS OF VENOUS THROMBOSIS 2-3(HIGH-RISK SURGERY)TREATMENT OF VENOUS THROMBOSIS 2-3TREATMENT OF PULMONARY EMBOLISM 2-3PREVENTION OF SYSTEMIC EMBOLISM: 2-3 ACUTE MYOCARDIAL INFARCTION TISSUE HEART VALVES VALVULAR HEART DISEASE ATRIAL FIBRILLATION RECURRENT SYSTEMIC EMBOLISMMECHANICAL HEART VALVE 2.5-3.5 FROM: ORAL ANTICOAGULANTS. MECHANISM OF ACTION, CLINICALEFFECTIVENESS, AND OPTIMAL THERAPEUTIC RANGE. [id number]. Performed By: #### 5 7307, 98262 ####[facility] [place] [address], [facility] PT Coag (PPP) [Time] 13.9 s Normal 12.3-14.8 The [facility] Comment on above: Result Comment: ALL RESULTS MUST BE INTERPRETED WITH RESPECT TO BLOOD DRAWING ARTIFACTOR DILUTION ERROR OF ANTICOAGULANT AT THE TIME OF SAMPLING. Performed By: #### 5 7307, 83976 ####[facility] [place] [address], [facility] TROPONIN-Ion 05-15-2021 Troponin I.cardiac [Mass/Vol] 0.01 ng/mL Normal 0.00-0.04 The [facility] Comment on above: Result Comment: REFE RENCE RANGES: 0.00 - 0.04 ng/ml NORMAL 0.05 - 0.50 ng/ml INDETERMINATE > 0.50 ng/ml CONSISTENT WITH AN M.I. Performed By: #### 4 1000, 73778, 49887, 22940 ####[facility] [place] [address], [facility] TYPE AND SCREENon 05-15-2021 ABO INTERPRETATION O Normal The [facility] Comment on above: Performed By: #### 6 2586 ####[facility] [place] [address], [facility] RH INTERPRETATION Positive Normal The [facility] Comment on above: Performed By: #### 6 2586 ####[facility] [place] [address], [facility] POC GLUCOSE LABon 04-15-2021 Glucose [Mass/Vol] 143 mg/dL High 70-100 The [facility] Comment on above: Performed By: #### 8 5499 ####[facility] [place] [address], [facility] Glucose [Mass/Vol] 241 mg/dL High 70-100 The [facility] Comment on above: Performed By: #### 8 5499 ####[facility] [place] [address], [facility] Glucose [Mass/Vol] 121 mg/dL High 70-100 The [facility] Comment on above: Performed By: #### 8 5499 ####[facility] [place] [address], [facility] POC SARS COV2 ANTIGEN NEGATI VEon 04-15-2021 POC SARS COV2 ANTIGEN NEG Negative Normal NEGATIVE The [facility] Comment on above: Result Comment: Nega tive [...] of clinicalsigns and symptoms consistent with COVID-19.[employer] COVID-19 Ag Card is a lateral flow immunoassay intended forthe qualitative detection of nucleocapsid protein antigen [id number] in direct nasal swabs from individuals within [...] Certificate ofAccreditation. Performed By: #### 3 1977 ####[address] BASIC METABOLIC PANELon 08-2 Calcium [Mass/Vol] 8.7 mg/dL Normal 8.6-10.3 [facility] Comment on above: Order Comment: No: D o not add to previous draw Performed By: #### 0 0071, 96780 ####[place] [address] [place] [address], [facility] Chloride [Moles/Vol] 95 mmol/L Low 98-107 The [facility] Comment on above: Order Comment: No: D o not add to previous draw Performed By: #### 0 0071, 58670 ####[place] [address] [place] [address], [facility] CO2 [Moles/Vol] 27 mmol/L Normal 21-31 The [facility] Comment on above: Order Comment: No: D o not add to previous draw Performed By: #### 0 0071, 26846 ####[place] [address] [place] [address], [facility] Creatinine [Mass/Vol] 0.80 mg/dL Normal 0.70-1.30 [facility] Comment on above: Order Comment: No: D o not add to previous draw Performed By: #### 0 0071, 53784 ####[facility] [place] [address], [facility] GFR/1.73 sq M.predicted among blacks MDRD (S/P/Bld) [Vol rate/Area] mL/min/{1.73_m2} Normal >60 The [facility] Comment on above: Order Comment: No: D o not add to previous draw Result Comment: Calc ulation may not be valid for patients over 70 years Performed By: #### 0 0071, 01438 ####[facility] [place] [address], [facility] GFR/1.73 sq M.predicted among non-blacks MDRD (S/P/Bld) [Vol rate/Area] mL/min/{1.73_m2} Normal >60 The [facility] Comment on above: Order Comment: No: D o not add to previous draw Result Comment: Calc ulation may not be valid for patients over 70 years Performed By: #### 0 0071, 99995 ####[facility] [place] [address], [facility] Glucose [Mass/Vol] 108 mg/dL High 70-100 The [facility] Comment on above: Order Comment: No: D o not add to previous draw Performed By: #### 0 0071, 19355 ####[facility] [place] [address], [place] Potassium [Moles/Vol] 3.6 mmol/L Normal 3.5-5.1 The [facility] Comment on above: Order Comment: No: D o not add to previous draw Performed By: #### 0 0071, 23502 ####[facility] [place] [address], [place] Sodium [Moles/Vol] 132 mmol/L Low 136-145 The [facility] Comment on above: Order Comment: No: D o not add to previous draw Performed By: #### 0 0071, 46335 ####[facility] [facility].[address] Urea nitrogen [Mass/Vol] 38 mg/dL High 7-25 The [facility] Comment on above: Order Comment: No: D o not add to previous draw Performed By: #### 0 0071, 06743 ####[facility] CBC COMPLETE BLOOD COUNTon 0 04-14-2021 Erythrocyte distribution width (RBC) [Ratio] 14.1 % Normal 11.5-15.0 The [facility] Comment on above: Order Comment: No: D o not add to previous draw Performed By: #### 5 0608 ####[place] [address] [address] Hematocrit (Bld) [Volume fraction] 33.5 % Low 39.0-50.0 The [facility] Comment on above: Order Comment: No: D o not add to previous draw Performed By: #### 5 0608 ####[place] [address] [address] Hemoglobin (Bld) [Mass/Vol] 11.3 g/dL Low 13.0-17.0 The [facility] Comment on above: Order Comment: No: D o not add to previous draw Performed By: #### 5 0608 ####[facility] [place] [address], [facility] MCH (RBC) [Entitic mass] 30.2 pg Normal 27.0-33.0 The [facility] Comment on above: Order Comment: No: D o not add to previous draw Performed By: #### 5 0608 ####[facility] [place] [address], [facility] MCHC (RBC) [Mass/Vol] 33.7 g/dL Normal 32.0-35.0 [facility] Comment on above: Order Comment: No: D o not add to previous draw Performed By: #### 5 0608 ####[facility] [facility] [place] [address], [facility] MCV (RBC) [Entitic vol] 89.6 fL Normal 82.0-98.0 [facility] Comment on above: Order Comment: No: D o not add to previous draw Performed By: #### 5 0608 ####[facility] [facility].[address] Nucleated RBC/100 WBC (Bld) [Ratio] 0 % Normal 0-0 [facility] Comment on above: Order Comment: No: D o not add to previous draw Performed By: #### 5 0608 ####[facility] [place] [address], [facility] PLAT CNT 314 10*3/uL Normal 150-400 The [facility] Comment on above: Order Comment: No: D o not add to previous draw Performed By: #### 5 0608 ####[facility] [place] [address], [facility] RBC (Bld) [#/Vol] 3.74 10*6/uL Low 4.20-5.70 [facility] Comment on above: Order Comment: No: D o not add to previous draw Performed By: #### 5 0608 ####[facility] [place] [address], [facility] WBC (Bld) [#/Vol] 10.84 10*3/uL High 4.00-10.60 [facility] Comment on above: Order Comment: No: D o not add to previous draw Performed By: #### 5 0608 ####[facility] [place] [address], [facility] MAGNESIUM BLOODon 04-14-2021 Magnesium [Mass/Vol] 1.9 mg/dL Normal 1.9-2.7 [facility] Comment on above: Order Comment: No: D o not add to previous draw Performed By: #### 0 0071, 76685 ####[facility] [place] [address], [place] POC GLUCOSE LABon 04-14-2021 Glucose [Mass/Vol] 168 mg/dL High 70-100 The [facility] Comment on above: Performed By: #### 8 5499 ####[facility] [place] [address], [place] Glucose [Mass/Vol] 133 mg/dL High 70-100 The [facility] Comment on above: Performed By: #### 8 5499 ####[facility] [place] [address], [place] Glucose [Mass/Vol] 167 mg/dL High 70-100 The [facility] Comment on above: Performed By: #### 8 5499 ####[facility] [place] [address], [place] Glucose [Mass/Vol] 146 mg/dL High 70-100 [facility] Comment on above: Performed By: #### 8 5499 ####[facility] [place] [address], [place] Glucose [Mass/Vol] 152 mg/dL High 70-100 [facility] Comment on above: Performed By: #### 8 5499 ####[facility] [place] [address], [place] PORTABLE CHEST 1 VIEWon 03-25 PORTABLE CHEST 1 VIEW Normal The [facility] Comment on above: Order Comment: evalu ate Atelectasis BASIC METABOLIC PANELon 03-25 Calcium [Mass/Vol] 9.1 mg/dL Normal 8.6-10.3 [facility] Comment on above: Order Comment: No: D o not add to previous draw Performed By: #### 1 0, 00817 ####[facility] [place] [address], [facility] Chloride [Moles/Vol] 94 mmol/L Low 98-107 [facility] Comment on above: Order Comment: No: D o not add to previous draw Performed By: #### 1 0, 87965 ####[facility] [place] [address], [facility] CO2 [Moles/Vol] 27 mmol/L Normal 21-31 The [facility] Comment on above: Order Comment: No: D o not add to previous draw Performed By: #### 1 69, 38496 ####[facility] [place] [address], [facility] Creatinine [Mass/Vol] 0.87 mg/dL Normal 0.70-1.30 The [facility] Comment on above: Order Comment: No: D o not add to previous draw Performed By: #### 1 69, 78821 ####[facility] [place] [address], [facility] GFR/1.73 sq M.predicted among blacks MDRD (S/P/Bld) [Vol rate/Area] mL/min/{1.73_m2} Normal >60 The [facility] Comment on above: Order Comment: No: D o not add to previous draw Result Comment: Calc ulation may not be valid for patients over 70 years Performed By: #### 1 69, 46393 ####[facility] [place] [address], [facility] GFR/1.73 sq M.predicted among non-blacks MDRD (S/P/Bld) [Vol rate/Area] mL/min/{1.73_m2} Normal >60 The [facility] Comment on above: Order Comment: No: D o not add to previous draw Result Comment: Calc ulation may not be valid for patients over 70 years Performed By: #### 1 69, 29570 ####[facility] [place] [address], [facility] Glucose [Mass/Vol] 125 mg/dL High 70-100 The [facility] Comment on above: Order Comment: No: D o not add to previous draw Performed By: #### 1 69, 17698 ####[facility] [place] [address], [facility] Potassium [Moles/Vol] 3.2 mmol/L Low 3.5-5.1 The [facility] Comment on above: Order Comment: No: D o not add to previous draw Performed By: #### 1 69, 74198 ####[place] [address] [place] [address], [facility] Sodium [Moles/Vol] 132 mmol/L Low 136-145 The [facility] Comment on above: Order Comment: No: D o not add to previous draw Performed By: #### 1 69, 87641 ####[place] [address] [place] [address], [facility] Urea nitrogen [Mass/Vol] 27 mg/dL High 7-25 The [facility] Comment on above: Order Comment: No: D o not add to previous draw Performed By: #### 1 69, 56483 ####[facility] [facility].[address] CBC COMPLETE BLOOD COUNTon 0 8- Erythrocyte distribution width (RBC) [Ratio] 14.2 % Normal 11.5-15.0 The [facility] Comment on above: Order Comment: No: D o not add to previous draw Performed By: #### 5 0608 ####[facility] [place] [address], [facility] Hematocrit (Bld) [Volume fraction] 35.2 % Low 39.0-50.0 [facility] Comment on above: Order Comment: No: D o not add to previous draw Performed By: #### 5 0608 ####[facility] [facility].[address] Hemoglobin (Bld) [Mass/Vol] 11.9 g/dL Low 13.0-17.0 [facility] Comment on above: Order Comment: No: D o not add to previous draw Performed By: #### 5 0608 ####[facility].[address] MCH (RBC) [Entitic mass] 30.6 pg Normal 27.0-33.0 [facility] Comment on above: Order Comment: No: D o not add to previous draw Performed By: #### 5 0608 ####[facility].[address] MCHC (RBC) [Mass/Vol] 33.8 g/dL Normal 32.0-35.0 [facility] Comment on above: Order Comment: No: D o not add to previous draw Performed By: #### 5 0608 ####[facility].[address] MCV (RBC) [Entitic vol] 90.5 fL Normal 82.0-98.0 [facility] Comment on above: Order Comment: No: D o not add to previous draw Performed By: #### 5 0608 ####[facility].[address] Nucleated RBC/100 WBC (Bld) [Ratio] 0 % Normal 0-0 [facility] Comment on above: Order Comment: No: D o not add to previous draw Performed By: #### 5 0608 ####[facility].[address] PLAT CNT 285 10*3/uL Normal 150-400 [facility] Comment on above: Order Comment: No: D o not add to previous draw Performed By: #### 5 0608 ####[facility] [place] [address], [facility] RBC (Bld) [#/Vol] 3.89 10*6/uL Low 4.20-5.70 [facility] Comment on above: Order Comment: No: D o not add to previous draw Performed By: #### 5 0608 ####[facility] [place] [address], [place] WBC (Bld) [#/Vol] 9.92 10*3/uL Normal 4.00-10.60 [facility] Comment on above: Order Comment: No: D o not add to previous draw Performed By: #### 5 0608 ####[facility] [place] [address], [facility] MAGNESIUM BLOODon 04-13-2021 Magnesium [Mass/Vol] 1.9 mg/dL Normal 1.9-2.7 [facility] Comment on above: Order Comment: No: D o not add to previous draw Performed By: #### 1 0070, [id number] ####[facility] [place] [address], [facility] POC GLUCOSE LABon 04-13-2021 Glucose [Mass/Vol] 106 mg/dL High 70-100 [facility] Comment on above: Performed By: #### 8 5499 ####[facility] [place] [address], [place] Glucose [Mass/Vol] 185 mg/dL High 70-100 [facility] Comment on above: Performed By: #### 8 5499 ####[facility] [place] [address], [place] Glucose [Mass/Vol] 136 mg/dL High 70-100 [facility] Comment on above: Performed By: #### 8 5499 ####[facility] [place] [address], [facility] PORTABLE CHEST 1 VIEWon 03-25 PORTABLE CHEST 1 VIEW Normal [facility] Comment on above: Order Comment: evalu ate for Atelectasis BASIC METABOLIC PANELon 03-25 Calcium [Mass/Vol] 8.3 mg/dL Low 8.6-10.3 [facility] Comment on above: Order Comment: No: D o not add to previous draw Performed By: #### 1 0, [id number] ####[facility] [place] [address], [facility] Chloride [Moles/Vol] 102 mmol/L Normal 98-107 [facility] Comment on above: Order Comment: No: D o not add to previous draw Performed By: #### 1 69, 65296 ####[facility] [place] [address], [facility] CO2 [Moles/Vol] 25 mmol/L Normal 21-31 [facility] Comment on above: Order Comment: No: D o not add to previous draw Performed By: #### 1 0, 70642 ####[facility] [place] [address], [facility] Creatinine [Mass/Vol] 0.67 mg/dL Low 0.70-1.30 [facility] Comment on above: Order Comment: No: D o not add to previous draw Performed By: #### 1 0, 05717 ####[facility] [place] [address], [facility] GFR/1.73 sq M.predicted among blacks MDRD (S/P/Bld) [Vol rate/Area] mL/min/{1.73_m2} Normal >60 [facility] Comment on above: Order Comment: No: D o not add to previous draw Result Comment: Calc ulation may not be valid for patients over 70 years Performed By: #### 1 69, 28771 ####[facility] [place] [address], [facility] GFR/1.73 sq M.predicted among non-blacks MDRD (S/P/Bld) [Vol rate/Area] mL/min/{1.73_m2} Normal >60 [facility] Comment on above: Order Comment: No: D o not add to previous draw Result Comment: Calc ulation may not be valid for patients over 70 years Performed By: #### 1 69, 86962 ####[facility] [place] [address], [facility] Glucose [Mass/Vol] 116 mg/dL High 70-100 [facility] Comment on above: Order Comment: No: D o not add to previous draw Performed By: #### 1 69, 60474 ####[facility] [place] [address], [place] Potassium [Moles/Vol] 4.0 mmol/L Normal 3.5-5.1 [facility] Comment on above: Order Comment: No: D o not add to previous draw Performed By: #### 1 69, 54638 ####[facility] [place] [address], [place] Sodium [Moles/Vol] 134 mmol/L Low 136-145 [facility] Comment on above: Order Comment: No: D o not add to previous draw Performed By: #### 1 69, 02975 ####[facility] [place] [address], [place] Urea nitrogen [Mass/Vol] 22 mg/dL Normal 7-25 [facility] Comment on above: Order Comment: No: D o not add to previous draw Performed By: #### 1 69, 55465 ####[facility] CBC COMPLETE BLOOD COUNTon 0 - Erythrocyte distribution width (RBC) [Ratio] 14.6 % Normal 11.5-15.0 [facility] Comment on above: Order Comment: No: D o not add to previous draw Performed By: #### 5 0608 ####[facility] Hematocrit (Bld) [Volume fraction] 33.1 % Low 39.0-50.0 [facility] Comment on above: Order Comment: No: D o not add to previous draw Performed By: #### 5 0608 ####[place] [id number] [address] Hemoglobin (Bld) [Mass/Vol] 10.6 g/dL Low 13.0-17.0 [facility] Comment on above: Order Comment: No: D o not add to previous draw Performed By: #### 5 0608 ####[facility] MCH (RBC) [Entitic mass] 30.0 pg Normal 27.0-33.0 [facility] Comment on above: Order Comment: No: D o not add to previous draw Performed By: #### 5 0608 ####[facility] MCHC (RBC) [Mass/Vol] 32.0 g/dL Normal 32.0-35.0 [facility] Comment on above: Order Comment: No: D o not add to previous draw Performed By: #### 5 0608 ####[facility] MCV (RBC) [Entitic vol] 93.8 fL Normal 82.0-98.0 [facility] Comment on above: Order Comment: No: D o not add to previous draw Performed By: #### 5 0608 ####[facility] [facility].[address] Nucleated RBC/100 WBC (Bld) [Ratio] 0 % Normal 0-0 [facility] Comment on above: Order Comment: No: D o not add to previous draw Performed By: #### 5 0608 ####[facility] [place] [address], [facility] PLAT CNT 213 10*3/uL Normal 150-400 [facility] Comment on above: Order Comment: No: D o not add to previous draw Performed By: #### 5 0608 ####[place] [id number] [facility].[address] RBC (Bld) [#/Vol] 3.53 10*6/uL Low 4.20-5.70 [facility] Comment on above: Order Comment: No: D o not add to previous draw Performed By: #### 5 0608 ####[facility] [facility].[address] WBC (Bld) [#/Vol] 7.64 10*3/uL Normal 4.00-10.60 [facility] Comment on above: Order Comment: No: D o not add to previous draw Performed By: #### 5 0608 ####[facility] [facility].[address] MAGNESIUM BLOODon 04-12-2021 Magnesium [Mass/Vol] 1.9 mg/dL Normal 1.9-2.7 [facility] Comment on above: Order Comment: No: D o not add to previous draw Performed By: #### 1 6450, 13711 ####[facility] [facility].[address] POC GLUCOSE LABon 04-12-2021 Glucose [Mass/Vol] 126 mg/dL High 70-100 [facility] Comment on above: Performed By: #### 8 5499 ####[facility] [place] [address], [facility] Glucose [Mass/Vol] 131 mg/dL High 70-100 [facility] Comment on above: Performed By: #### 8 5499 ####[facility] [place] [address], [facility] Glucose [Mass/Vol] 167 mg/dL High 70-100 [facility] Comment on above: Performed By: #### 8 5499 ####[facility] [place] [address], [facility] POC SARS COV2 ANTIGEN NEGATI VEon 04-12-2021 POC SARS COV2 ANTIGEN NEG Negative Normal NEGATIVE [facility] Comment on above: Result Comment: Nega tive [...] of clinicalsigns and symptoms consistent with COVID-19.The [employer] COVID-19 Ag Card is a lateral flow immunoassay intended forthe qualitative detection of nucleocapsid protein antigen [id number]-6 in direct nasal swabs from individuals within [...] Performed By: #### 3 1977 ####[facility] [place] [address], [facility] POC SARS COV2 ANTIGEN NEG Negative Normal NEGATIVE [facility] Comment on above: Result Comment: Nega tive [...] of clinicalsigns and symptoms consistent with COVID-19.[employer] COVID-19 Ag Card is a lateral flow immunoassay intended forthe qualitative detection of nucleocapsid protein antigen krfoMRFA-MtX-5 in direct nasal swabs from individuals within [...] Performed By: #### 3 1977 ####[facility] PORTABLE CHEST 1 VIEWon 03-25 PORTABLE CHEST 1 VIEW Normal [facility] Comment on above: Order Comment: evalu ate for Atelectasis BASIC METABOLIC PANELon 03-24 Calcium [Mass/Vol] 7.9 mg/dL Low 8.6-10.3 [facility] Comment on above: Order Comment: No: D o not add to previous draw Performed By: #### 4 999, 92696, 82060 ####[facility] [facility].[address] Chloride [Moles/Vol] 100 mmol/L Normal 98-107 [facility] Comment on above: Order Comment: No: D o not add to previous draw Performed By: #### 4 999, 55507, 76668 ####[facility] [place] [address], [facility] CO2 [Moles/Vol] 27 mmol/L Normal 21-31 [facility] Comment on above: Order Comment: No: D o not add to previous draw Performed By: #### 4 1000, 59358, 76816 ####[facility] [place] [address], [facility] Creatinine [Mass/Vol] 0.80 mg/dL Normal 0.70-1.30 [facility] Comment on above: Order Comment: No: D o not add to previous draw Performed By: #### 4 1000, 05953, 43920 ####[facility] [place] [address], [facility] GFR/1.73 sq M.predicted among blacks MDRD (S/P/Bld) [Vol rate/Area] mL/min/{1.73_m2} Normal >60 [facility] Comment on above: Order Comment: No: D o not add to previous draw Result Comment: Calc ulation may not be valid for patients over 70 years Performed By: #### 4 999, 70840, 92923 ####[facility] [place] [address], [facility] GFR/1.73 sq M.predicted among non-blacks MDRD (S/P/Bld) [Vol rate/Area] mL/min/{1.73_m2} Normal >60 [facility] Comment on above: Order Comment: No: D o not add to previous draw Result Comment: Calc ulation may not be valid for patients over 70 years Performed By: #### 4 1000, 29472, 57318 ####[facility] [place] [address], [facility] Glucose [Mass/Vol] 135 mg/dL High 70-100 [facility] Comment on above: Order Comment: No: D o not add to previous draw Performed By: #### 4 1000, 99913, 47805 ####[facility] [place] [address], [facility] Potassium [Moles/Vol] 3.4 mmol/L Low 3.5-5.1 [facility] Comment on above: Order Comment: No: D o not add to previous draw Performed By: #### 4 1000, 55766, 05618 ####[facility] [place] [address], [facility] Sodium [Moles/Vol] 134 mmol/L Low 136-145 [facility] Comment on above: Order Comment: No: D o not add to previous draw Performed By: #### 4 999, 10544, 80813 ####[facility] [place] [address], [facility] Urea nitrogen [Mass/Vol] 21 mg/dL Normal 7-25 [facility] Comment on above: Order Comment: No: D o not add to previous draw Performed By: #### 4 999, 23561, 23509 ####[facility] CBC COMPLETE BLOOD COUNTon 0 - Erythrocyte distribution width (RBC) [Ratio] 15.0 % Normal 11.5-15.0 [facility] Comment on above: Order Comment: No: D o not add to previous drawNurse draw Performed By: #### 5 0608 ####[facility] [place] [address], [facility] Hematocrit (Bld) [Volume fraction] 32.0 % Low 39.0-50.0 [facility] Comment on above: Order Comment: No: D o not add to previous drawNurse draw Performed By: #### 5 0608 ####[facility] [place] [address], [facility] Hemoglobin (Bld) [Mass/Vol] 10.6 g/dL Low 13.0-17.0 [facility] Comment on above: Order Comment: No: D o not add to previous drawNurse draw Performed By: #### 5 0608 ####[facility] [facility].[address] MCH (RBC) [Entitic mass] 30.5 pg Normal 27.0-33.0 [facility] Comment on above: Order Comment: No: D o not add to previous drawNurse draw Performed By: #### 5 0608 ####[facility] MCHC (RBC) [Mass/Vol] 33.1 g/dL Normal 32.0-35.0 [facility] Comment on above: Order Comment: No: D o not add to previous drawNurse draw Performed By: #### 5 0608 ####[address] MCV (RBC) [Entitic vol] 92.2 fL Normal 82.0-98.0 [facility] Comment on above: Order Comment: No: D o not add to previous drawNurse draw Performed By: #### 5 0608 ####[place] [address] [address] Nucleated RBC/100 WBC (Bld) [Ratio] 0 % Normal 0-0 [facility] Comment on above: Order Comment: No: D o not add to previous drawNurse draw Performed By: #### 5 0608 ####[address] PLAT CNT 182 10*3/uL Normal 150-400 [facility] Comment on above: Order Comment: No: D o not add to previous drawNurse draw Performed By: #### 5 0608 ####[address] RBC (Bld) [#/Vol] 3.47 10*6/uL Low 4.20-5.70 [facility] Comment on above: Order Comment: No: D o not add to previous drawNurse draw Performed By: #### 5 0608 ####[facility] [place] [address], [facility] WBC (Bld) [#/Vol] 9.87 10*3/uL Normal 4.00-10.60 [facility] Comment on above: Order Comment: No: D o not add to previous drawNurse draw Performed By: #### 5 0608 ####[facility] [place] [address], [facility] MAGNESIUM BLOODon 04-11-2021 Magnesium [Mass/Vol] 2.1 mg/dL Normal 1.9-2.7 [facility] Comment on above: Order Comment: No: D o not add to previous draw Performed By: #### 4 1000, 30328, 63981 ####[facility] [place] [address], [facility] PHOSPHORUS BLOODon Phosphate [Mass/Vol] 3.7 mg/dL Normal 2.5-5.0 [facility] Comment on above: Order Comment: No: D o not add to previous draw Performed By: #### 4 1000, 99689, 80003 ####[facility] [place] [address], [facility] POC GLUCOSE LABon 04-11-2021 Glucose [Mass/Vol] 137 mg/dL High 70-100 [facility] Comment on above: Performed By: #### 8 5499 ####[facility] [place] [address], [place] Glucose [Mass/Vol] 182 mg/dL High 70-100 [facility] Comment on above: Performed By: #### 8 5499 ####[facility] [place] [address], [place] Glucose [Mass/Vol] 171 mg/dL High 70-100 [facility] Comment on above: Performed By: #### 8 5499 ####[facility] [place] [address], [facility] Glucose [Mass/Vol] 142 mg/dL High 70-100 [facility] Comment on above: Performed By: #### 8 5499 ####[facility] [place] [address], [facility] PORTABLE CHEST 1 VIEWon 03-24 PORTABLE CHEST 1 VIEW Normal [facility] Comment on above: Order Comment: Evalu ate for Pneumothorax PORTABLE CHEST 1 VIEW Normal [facility] Comment on above: Order Comment: evalu ate for Pneumothorax BASIC METABOLIC PANELon 03-24 Calcium [Mass/Vol] 8.2 mg/dL Low 8.6-10.3 [facility] Comment on above: Order Comment: No: D o not add to previous drawNurse draw rn barbara Performed By: #### 4 999, 26700, 89335 ####[facility] [place] [address], [facility] Chloride [Moles/Vol] 104 mmol/L Normal 98-107 [facility] Comment on above: Order Comment: No: D o not add to previous drawNurse draw rn barbara Performed By: #### 4 999, 92517, 06393 ####[facility] [place] [address], [facility] CO2 [Moles/Vol] 27 mmol/L Normal 21-31 [facility] Comment on above: Order Comment: No: D o not add to previous drawNurse draw rn barbara Performed By: #### 4 999, 77112, 50758 ####[facility] [place] [address], [facility] Creatinine [Mass/Vol] 0.76 mg/dL Normal 0.70-1.30 [facility] Comment on above: Order Comment: No: D o not add to previous drawNurse draw rn barbara Performed By: #### 4 1000, 26143, 12844 ####[facility] [place] [address], [facility] GFR/1.73 sq M.predicted among blacks MDRD (S/P/Bld) [Vol rate/Area] mL/min/{1.73_m2} Normal >60 [facility] Comment on above: Order Comment: No: D o not add to previous drawNurse draw rn barbara Result Comment: Calc ulation may not be valid for patients over 70 years Performed By: #### 4 1000, 14316, 40429 ####[facility] [facility].[place] [id number], [facility] GFR/1.73 sq M.predicted among non-blacks MDRD (S/P/Bld) [Vol rate/Area] mL/min/{1.73_m2} Normal >60 [facility] Comment on above: Order Comment: No: D o not add to previous drawNurse draw rn barbara Result Comment: Calc ulation may not be valid for patients over 70 years Performed By: #### 4 999, 60360, 78979 ####[facility] [place] [address], [facility] Glucose [Mass/Vol] 109 mg/dL High 70-100 [facility] Comment on above: Order Comment: No: D o not add to previous drawNurse draw rn barbara Performed By: #### 4 1000, 12923, 79720 ####[facility] [place] [address], [place] Potassium [Moles/Vol] 4.0 mmol/L Normal 3.5-5.1 [facility] Comment on above: Order Comment: No: D o not add to previous drawNurse draw rn barbara Performed By: #### 4 1000, 52463, 44858 ####[facility] [facility] [id number], [place] Sodium [Moles/Vol] 135 mmol/L Low 136-145 [facility] Comment on above: Order Comment: No: D o not add to previous drawNurse draw rn barbara Performed By: #### 4 1000, 63417, 61428 ####[facility] Urea nitrogen [Mass/Vol] 15 mg/dL Normal 7-25 [facility] Comment on above: Order Comment: No: D o not add to previous drawNurse draw rn barbara Performed By: #### 4 1000, 64456, 46889 ####[facility] CBC COMPLETE BLOOD COUNTon 0 - Erythrocyte distribution width (RBC) [Ratio] 14.7 % Normal 11.5-15.0 [facility] Comment on above: Order Comment: No: D o not add to previous drawNurse draw rn barbara Performed By: #### 5 0608 ####[facility] Hematocrit (Bld) [Volume fraction] 32.7 % Low 39.0-50.0 [facility] Comment on above: Order Comment: No: D o not add to previous drawNurse draw rn barbara Performed By: #### 5 0608 ####[facility] Hemoglobin (Bld) [Mass/Vol] 10.7 g/dL Low 13.0-17.0 [facility] Comment on above: Order Comment: No: D o not add to previous drawNurse draw rn barbara Performed By: #### 5 0608 ####[facility] [facility].[address] MCH (RBC) [Entitic mass] 30.1 pg Normal 27.0-33.0 [facility] Comment on above: Order Comment: No: D o not add to previous drawNurse draw rn barbara Performed By: #### 5 0608 ####[facility] [facility].[address] MCHC (RBC) [Mass/Vol] 32.7 g/dL Normal 32.0-35.0 [facility] Comment on above: Order Comment: No: D o not add to previous drawNurse draw rn barbara Performed By: #### 5 0608 ####[facility] [facility].[address] MCV (RBC) [Entitic vol] 92.1 fL Normal 82.0-98.0 [facility] Comment on above: Order Comment: No: D o not add to previous drawNurse draw rn barbara Performed By: #### 5 0608 ####[facility] Nucleated RBC/100 WBC (Bld) [Ratio] 0 % Normal 0-0 [facility] Comment on above: Order Comment: No: D o not add to previous drawNurse draw rn barbara Performed By: #### 5 0608 ####[facility] PLAT CNT 176 10*3/uL Normal 150-400 [facility] Comment on above: Order Comment: No: D o not add to previous drawNurse draw rn barbara Performed By: #### 5 0608 ####[facility] [facility].[address] RBC (Bld) [#/Vol] 3.55 10*6/uL Low 4.20-5.70 [facility] Comment on above: Order Comment: No: D o not add to previous drawNurse draw rn barbara Performed By: #### 5 0608 ####[facility] [place] [address].[address] WBC (Bld) [#/Vol] 12.43 10*3/uL High 4.00-10.60 [facility] Comment on above: Order Comment: No: D o not add to previous drawNurse draw rn barbara Performed By: #### 5 0608 ####[facility] [place] [address], [facility] COOXIMETRYon 04-10-2021 COHB 1 % Normal [facility] Comment on above: Performed By: #### 7 0207 ####[facility] METHB 0 % Normal [facility] Comment on above: Performed By: #### 7 0207 ####[facility] Oxygen saturation in Blood 68.2 % Normal 65.0-75.0 [facility] Comment on above: Performed By: #### 7 0207 ####[facility] [facility].[address] THB 13.1 g/dL Normal [facility] Comment on above: Performed By: #### 7 0207 ####[facility] [place] [address], [facility] LACTATE BLOODon 04-10-2021 Lactate [Moles/Vol] 0.7 mmol/L Normal .5-2.2 [facility] Comment on above: Order Comment: No: D o not add to previous drawNurse draw rn barbara Performed By: #### 1 0054 ####[facility] [place] [address], [facility] MAGNESIUM BLOODon 04-10-2021 Magnesium [Mass/Vol] 2.3 mg/dL Normal 1.9-2.7 [facility] Comment on above: Order Comment: No: D o not add to previous drawNurse draw rn barbara Performed By: #### 4 1000, 18882, 86768 ####[facility] [place] [address], [place] PHOSPHORUS BLOODon Phosphate [Mass/Vol] 3.9 mg/dL Normal 2.5-5.0 [facility] Comment on above: Order Comment: No: D o not add to previous drawNurse draw sumit [place] Performed By: #### 4 1000, 46021, 31129 ####[facility] [place] [address], [place] POC GLUCOSE LABon 04-10-2021 Glucose [Mass/Vol] 168 mg/dL High 70-100 [facility] Comment on above: Performed By: #### 8 5499 ####[facility] [place] [address], [place] Glucose [Mass/Vol] 131 mg/dL High 70-100 [facility] Comment on above: Performed By: #### 8 5499 ####[facility] [place] [address], [place] Glucose [Mass/Vol] 123 mg/dL High 70-100 [facility] Comment on above: Performed By: #### 8 5499 ####[facility] [place] [address], [place] Glucose [Mass/Vol] 170 mg/dL High 70-100 [facility] Comment on above: Performed By: #### 8 5499 ####[facility] [place] [address], [place] Glucose [Mass/Vol] 131 mg/dL High 70-100 [facility] Comment on above: Performed By: #### 8 5499 ####[facility] [place] [address], [place] Glucose [Mass/Vol] 123 mg/dL High 70-100 [facility] Comment on above: Performed By: #### 8 5499 ####[facility] [place] [address], [place] Glucose [Mass/Vol] 92 mg/dL Normal 70-100 [facility] Comment on above: Performed By: #### 8 5499 ####[facility] [place] [address], [place] Glucose [Mass/Vol] 99 mg/dL Normal 70-100 [facility] Comment on above: Performed By: #### 8 5499 ####[facility] [place] [address], [place] Glucose [Mass/Vol] 124 mg/dL High 70-100 [facility] Comment on above: Performed By: #### 8 5499 ####[facility] [place] [address], [place] Glucose [Mass/Vol] 141 mg/dL High 70-100 [facility] Comment on above: Performed By: #### 8 5499 ####[facility] [place] [address], [place] Glucose [Mass/Vol] 143 mg/dL High 70-100 [facility] Comment on above: Performed By: #### 8 5499 ####[facility] [place] [address], [place] PORTABLE CHEST 1 VIEWon 03-24 PORTABLE CHEST 1 VIEW Normal [facility] Comment on above: Order Comment: Check Chest Tube Position, s/p mediasteinal tube removal PORTABLE CHEST 1 VIEW Normal [facility] Comment on above: Order Comment: evalu ate for Atelectasis APTTon 04-09-2021 aPTT Coag (Bld) [Time] 28.6 s Normal 25.0-35.0 [facility] Comment on above: Order Comment: post op [...] THIS PURPOSE. Performed By: #### 5 7307, 04370 ####[facility] ARTERIAL BLOOD GAS WITH ICAo n 04-09-2021 [employer]ERY SYSTEMS [place] Normal [facility] Comment on above: Performed By: #### 8 4511 ####[facility] [place] [address], [facility] IONIZED CALCIUM 1.15 mmol/L Normal 1.13-1.32 [facility] Comment on above: Performed By: #### 8 4511 ####[facility] [place] [address], [facility] LPM 4.0 LPM Normal [facility] Comment on above: Performed By: #### 8 4511 ####[facility] [facility] [place] [address], [facility] Oxygen (Bld) [Partial pressure] 63 mm[Hg] Low 83-108 [facility] Comment on above: Performed By: #### 8 4511 ####[facility] Oxygen saturation in Blood 94.2 % Normal 94.0-97.0 [facility] Comment on above: Performed By: #### 8 4511 ####[facility] [place] [address], [facility] BASE EXCESS 3 mmol/L Normal -2-3 [facility] Comment on above: Performed By: #### 8 4511 ####[facility], [place] [address] DELIVERY SYSTEMS MV Normal [facility] Comment on above: Performed By: #### 8 4511 ####[facility] [place] [address], [facility] FIO2 40 % Normal [facility] Comment on above: Performed By: #### 8 4511 ####[facility] [place] [address], [facility] HCO3 (Bld) [Moles/Vol] 27 mmol/L Normal 21-28 [facility] Comment on above: Performed By: #### 8 4511 ####[facility] IONIZED CALCIUM 1.17 mmol/L Normal 1.13-1.32 [facility] Comment on above: Performed By: #### 8 4511 ####[facility] [place] [address], [facility] MIN VOLUME 14.0 Normal [facility] Comment on above: Performed By: #### 8 4511 ####[facility] [place] [address], [facility] MODALITY SPONT Normal [facility] Comment on above: Performed By: #### 8 4511 ####[facility], [place] [id number] [place] [address] Oxygen (Bld) [Partial pressure] 79 mm[Hg] Low 83-108 [facility] Comment on above: Performed By: #### 8 4511 ####[facility] [place] [address], [facility] Oxygen saturation in Blood 96.5 % Normal 94.0-97.0 [facility] Comment on above: Performed By: #### 8 4511 ####[facility] [place] [address], [facility] PCO2 37 mmHg Normal 35-45 [facility] Comment on above: Performed By: #### 8 4511 ####[facility] [place] [address], [facility] PEEP 5.0 CMH20 Normal [facility] Comment on above: Performed By: #### 8 4511 ####[facility] [place] [address], [facility] PF RATIO 198 mmHg Normal [facility] Comment on above: Performed By: #### 8 4511 ####[facility] [place] [address], [facility] pH (Bld) 7.47 [pH] High 7.35-7.45 [facility] Comment on above: Performed By: #### 8 4511 ####[facility] [place] [address], [facility] PRESSURE SUPPORT 5 Normal [facility] Comment on above: Performed By: #### 8 4511 ####[facility] [place] [address], [facility] BASE EXCESS 2 mmol/L Normal -2-3 [facility] Comment on above: Performed By: #### 8 4511 ####[facility] [place] [address], [facility] DELIVERY SYSTEMS MV Normal [facility] Comment on above: Performed By: #### 8 4511 ####[facility] [place] [address], [facility] FIO2 50 % Normal [facility] Comment on above: Performed By: #### 8 4511 ####[facility] [place] [address], [facility] HCO3 (Bld) [Moles/Vol] 26 mmol/L Normal 21-28 [facility] Comment on above: Performed By: #### 8 4511 ####[facility] [place] [address], [place] IONIZED CALCIUM 1.17 mmol/L Normal 1.13-1.32 [facility] Comment on above: Performed By: #### 8 4511 ####[facility] [place] [address], [place] MIN VOLUME 13.3 Normal [facility] Comment on above: Performed By: #### 8 4511 ####[facility] [place] [address], [place] MODALITY SIMV Normal [facility] Comment on above: Performed By: #### 8 4511 ####[facility] [place] [address], [place] Oxygen (Bld) [Partial pressure] 79 mm[Hg] Low 83-108 [facility] Comment on above: Performed By: #### 8 4511 ####[facility] [place] [address], [place] Oxygen saturation in Blood 96.8 % Normal 94.0-97.0 [facility] Comment on above: Performed By: #### 8 4511 ####[facility] [place] [address], [place] PCO2 36 mmHg Normal 35-45 [facility] Comment on above: Performed By: #### 8 4511 ####[facility] [place] [address], [place] PEEP 8.0 CMH20 Normal [facility] Comment on above: Performed By: #### 8 4511 ####[facility] [place] [address], [place] PF RATIO 158 mmHg Normal [facility] Comment on above: Performed By: #### 8 4511 ####[facility] pH (Bld) 7.46 [pH] High 7.35-7.45 [facility] Comment on above: Performed By: #### 8 4511 ####[facility] PRESSURE SUPPORT 10 Normal [facility] Comment on above: Performed By: #### 8 4511 ####[facility] [facility].[address] Respiratory rate 18 /min Normal [facility] Comment on above: Performed By: #### 8 4511 ####[facility] [facility].[address] TIDAL VOLUME (VT) CC 700 Normal [facility] Comment on above: Performed By: #### 8 4511 ####[facility] [facility].[address] BASE EXCESS -4 mmol/L Low -2-3 [facility] Comment on above: Performed By: #### 8 4511 ####[facility] [facility].[address] DELIVERY SYSTEMS MV Normal [facility] Comment on above: Performed By: #### 8 4511 ####[facility] [facility].[address] FIO2 80 % Normal [facility] Comment on above: Performed By: #### 8 4511 ####[facility] [facility].[address] HCO3 (Bld) [Moles/Vol] 20 mmol/L Low 21-28 [facility] Comment on above: Performed By: #### 8 4511 ####[facility] [facility].[address] IONIZED CALCIUM 1.14 mmol/L Normal 1.13-1.32 [facility] Comment on above: Performed By: #### 8 4511 ####[facility] [place] [address], [facility] MIN VOLUME 13.5 Normal [facility] Comment on above: Performed By: #### 8 4511 ####[facility] [place] [address], [facility] MODALITY SIMV Normal [facility] Comment on above: Performed By: #### 8 4511 ####[facility] [place] [address], [facility] Oxygen (Bld) [Partial pressure] 121 mm[Hg] Critically high 83-108 [facility] Comment on above: Performed By: #### 8 4511 ####[facility] [place] [address], [facility] Oxygen saturation in Blood 97.1 % High 94.0-97.0 [facility] Comment on above: Performed By: #### 8 4511 ####[facility] [place] [address], [facility] PCO2 34 mmHg Low 35-45 [facility] Comment on above: Performed By: #### 8 4511 ####[facility] [place] [address], [facility] PEEP 8.0 CMH20 Normal [facility] Comment on above: Performed By: #### 8 4511 ####[facility] [place] [address], [facility] pH (Bld) 7.38 [pH] Normal 7.35-7.45 [facility] Comment on above: Performed By: #### 8 4511 ####[facility] [place] [address], [facility] PRESSURE SUPPORT 10 Normal [facility] Comment on above: Performed By: #### 8 4511 ####[facility] [place] [address], [facility] Respiratory rate 18 /min Normal [facility] Comment on above: Performed By: #### 8 4511 ####[facility] [place] [address], [facility] TIDAL VOLUME (VT) CC 700 Normal [facility] Comment on above: Performed By: #### 8 4511 ####[facility] [place] [address], [facility] BASE EXCESS -8 mmol/L Low -2-3 [facility] Comment on above: Performed By: #### 8 4511 ####[facility] [place] [address], [facility] DELIVERY SYSTEMS MV Normal [facility] Comment on above: Performed By: #### 8 4511 ####[facility] [place] [address], [facility] FIO2 80 % Normal [facility] Comment on above: Performed By: #### 8 4511 ####[facility] [place] [address], [facility] HCO3 (Bld) [Moles/Vol] 18 mmol/L Low 21-28 [facility] Comment on above: Performed By: #### 8 4511 ####[facility] [place] [address], [facility] IONIZED CALCIUM 1.06 mmol/L Low 1.13-1.32 [facility] Comment on above: Performed By: #### 8 4511 ####[facility] [place] [address], [facility] MIN VOLUME 16.6 Normal [facility] Comment on above: Performed By: #### 8 4511 ####[facility] [place] [address], [place] MODALITY SIMV Normal [facility] Comment on above: Performed By: #### 8 4511 ####[facility] [place] [address], [place] Oxygen (Bld) [Partial pressure] 86 mm[Hg] Normal 83-108 [facility] Comment on above: Performed By: #### 8 4511 ####[facility] [place] [address], [place] Oxygen saturation in Blood 96.6 % Normal 94.0-97.0 [facility] Comment on above: Performed By: #### 8 4511 ####[facility] [place] [address], [place] PCO2 34 mmHg Low 35-45 [facility] Comment on above: Performed By: #### 8 4511 ####[facility] [place] [address], [place] PEEP 8.0 CMH20 Normal [facility] Comment on above: Performed By: #### 8 4511 ####[facility] [place] [address], [place] PF RATIO 108 mmHg Normal [facility] Comment on above: Performed By: #### 8 4511 ####[facility] [place] [address], [place] pH (Bld) 7.32 [pH] Low 7.35-7.45 [facility] Comment on above: Performed By: #### 8 4511 ####[facility] [place] [address], [place] PRESSURE SUPPORT [address] [facility] Comment on above: Performed By: #### 8 4511 ####[facility] [place] [address], [facility] Respiratory rate 18 /min Normal [facility] Comment on above: Performed By: #### 8 4511 ####[facility] [place] [address], [facility] TIDAL VOLUME (VT) CC 700 Normal [facility] Comment on above: Performed By: #### 8 4511 ####[facility] [facility] BASIC METABOLIC PANELon 08-1 Calcium [Mass/Vol] 8.0 mg/dL Low 8.6-10.3 [facility] Comment on above: Order Comment: No: D o not add to previous draw Performed By: #### 0 0071, 94037 ####[place] [address] [place] [address], [facility] Chloride [Moles/Vol] 107 mmol/L Normal 98-107 [facility] Comment on above: Order Comment: No: D o not add to previous draw Performed By: #### 0 0071, 21146 ####[place] [address] [place] [address], [facility] CO2 [Moles/Vol] 26 mmol/L Normal 21-31 The [facility] Comment on above: Order Comment: No: D o not add to previous draw Performed By: #### 0 0071, 51950 ####[facility] [place] [address], [facility] Creatinine [Mass/Vol] 0.90 mg/dL Normal 0.70-1.30 [facility] Comment on above: Order Comment: No: D o not add to previous draw Performed By: #### 0 0071, 51280 ####[place] [address] [place] [address], [facility] GFR/1.73 sq M.predicted among blacks MDRD (S/P/Bld) [Vol rate/Area] mL/min/{1.73_m2} Normal >60 [facility] Comment on above: Order Comment: No: D o not add to previous draw Result Comment: Calc ulation may not be valid for patients over 70 years Performed By: #### 0 0071, 99328 ####[facility] [place] [address], [place] GFR/1.73 sq M.predicted among non-blacks MDRD (S/P/Bld) [Vol rate/Area] mL/min/{1.73_m2} Normal >60 [facility] Comment on above: Order Comment: No: D o not add to previous draw Result Comment: Calc ulation may not be valid for patients over 70 years Performed By: #### 0 0071, 53057 ####[facility] [place] [address], [place] Glucose [Mass/Vol] 126 mg/dL High 70-100 [facility] Comment on above: Order Comment: No: D o not add to previous draw Performed By: #### 0 0071, 04587 ####[facility] [place] [address], [place] Potassium [Moles/Vol] 3.8 mmol/L Normal 3.5-5.1 [facility] Comment on above: Order Comment: No: D o not add to previous draw Performed By: #### 0 0071, 34595 ####[facility] [place] [address], [place] Sodium [Moles/Vol] 136 mmol/L Normal 136-145 [facility] Comment on above: Order Comment: No: D o not add to previous draw Performed By: #### 0 0071, 20010 ####[facility] [place] [address], [place] Urea nitrogen [Mass/Vol] 21 mg/dL Normal 7-25 [facility] Comment on above: Order Comment: No: D o not add to previous draw Performed By: #### 0 0071, 11886 ####[facility] [place] [address], [facility] Calcium [Mass/Vol] 7.8 mg/dL Low 8.6-10.3 [facility] Comment on above: Order Comment: post op day 1No: Do not add to previous draw Performed By: #### 1 69, 76960 ####[facility] [place] [address], [place] Chloride [Moles/Vol] 103 mmol/L Normal 98-107 [facility] Comment on above: Order Comment: post op day 1No: Do not add to previous draw Performed By: #### 1 69, 68357 ####[facility] [id number], [place] CO2 [Moles/Vol] 20 mmol/L Low 21-[address] [facility] Comment on above: Order Comment: post op day 1No: Do not add to previous draw Performed By: #### 1 69, 35687 ####[facility] [place] [address], [place] Creatinine [Mass/Vol] 1.25 mg/dL Normal 0.70-1.30 [facility] Comment on above: Order Comment: post op day 1No: Do not add to previous draw Performed By: #### 1 69, 48821 ####[facility] [id number], [place] eGFR- non- 56 ml/min/1.73sq m Abnormal >60 [facility] Comment on above: Order Comment: post op day 1No: Do not add to previous draw Result Comment: Calc ulation may not be valid for patients over 70 years Performed By: #### 1 69, 71270 ####[facility] [place] [address], [facility] GFR/1.73 sq M.predicted among blacks MDRD (S/P/Bld) [Vol rate/Area] mL/min/{1.73_m2} Normal >60 [facility] Comment on above: Order Comment: post op day 1No: Do not add to previous draw Result Comment: Calc ulation may not be valid for patients over 70 years Performed By: #### 1 0, 21956 ####[facility] [place] [address], [facility] Glucose [Mass/Vol] 331 mg/dL High 70-100 [facility] Comment on above: Order Comment: post op day 1No: Do not add to previous draw Performed By: #### 1 69, 72810 ####[facility] [place] [address], [facility] Potassium [Moles/Vol] 3.2 mmol/L Low 3.5-5.1 [facility] Comment on above: Order Comment: post op day 1No: Do not add to previous draw Performed By: #### 1 69, 38945 ####[facility] [place] [address], [facility] Sodium [Moles/Vol] 135 mmol/L Low 136-145 [facility] Comment on above: Order Comment: post op day 1No: Do not add to previous draw Performed By: #### 1 69, 60337 ####[facility] [place] [address], [facility] Urea nitrogen [Mass/Vol] 24 mg/dL Normal 7-25 [facility] Comment on above: Order Comment: post op day 1No: Do not add to previous draw Performed By: #### 1 69, 80852 ####[facility] [place] [address], [facility] CBC COMPLETE BLOOD COUNTon 0 - Erythrocyte distribution width (RBC) [Ratio] 14.6 % Normal 11.5-15.0 [facility] Comment on above: Order Comment: post op day 1No: Do not add to previous draw Performed By: #### 5 0608 ####[facility] [facility].[address] Hematocrit (Bld) [Volume fraction] 30.5 % Low 39.0-50.0 [facility] Comment on above: Order Comment: post op day 1No: Do not add to previous draw Performed By: #### 5 0608 ####[facility] Hemoglobin (Bld) [Mass/Vol] 10.2 g/dL Low 13.0-17.0 [facility] Comment on above: Order Comment: post op day 1No: Do not add to previous draw Performed By: #### 5 0608 ####[facility] [facility].[address] MCH (RBC) [Entitic mass] 30.9 pg Normal 27.0-33.0 [facility] Comment on above: Order Comment: post op day 1No: Do not add to previous draw Performed By: #### 5 0608 ####[facility] [facility].[address] MCHC (RBC) [Mass/Vol] 33.4 g/dL Normal 32.0-35.0 [facility] Comment on above: Order Comment: post op day 1No: Do not add to previous draw Performed By: #### 5 0608 ####[facility] [place] [address], [facility] MCV (RBC) [Entitic vol] 92.4 fL Normal 82.0-98.0 [facility] Comment on above: Order Comment: post op day 1No: Do not add to previous draw Performed By: #### 5 0608 ####[facility] Nucleated RBC/100 WBC (Bld) [Ratio] 0 % Normal 0-0 [facility] Comment on above: Order Comment: post op day 1No: Do not add to previous draw Performed By: #### 5 0608 ####[facility] [place] [address], [facility] PLAT CNT 232 10*3/uL Normal 150-400 [facility] Comment on above: Order Comment: post op day 1No: Do not add to previous draw Performed By: #### 5 0608 ####[facility] [place] [address], [facility] RBC (Bld) [#/Vol] 3.30 10*6/uL Low 4.20-5.70 [facility] Comment on above: Order Comment: post op day 1No: Do not add to previous draw Performed By: #### 5 0608 ####[facility] [place] [address], [facility] WBC (Bld) [#/Vol] 17.37 10*3/uL High 4.00-10.60 [facility] Comment on above: Order Comment: post op day 1No: Do not add to previous draw Performed By: #### 5 0608 ####[facility] [place] [address], [facility] CBC W/DIFFon 04-09-2021 ABS IMM GRANS 0.1 10*3/uL Normal 0.0-0.2 [facility] Comment on above: Order Comment: No: D o not add to previous draw Performed By: #### 5 0103 ####[facility] [place] [address], [facility] ABS NEUTROPHILS 8.3 10*3/uL High 1.6-7.6 [facility] Comment on above: Order Comment: No: D o not add to previous draw Performed By: #### 5 0103 ####[facility] [place] [address], [facility] Basophils (Bld) [#/Vol] 0.0 10*3/uL Normal 0.0-0.2 [facility] Comment on above: Order Comment: No: D o not add to previous draw Performed By: #### 5 0103 ####[facility] [place] [address], [facility] Basophils/100 WBC (Bld) 0.1 % Normal 0.0-1.0 [facility] Comment on above: Order Comment: No: D o not add to previous draw Performed By: #### 5 0103 ####[facility] [place] [address], [facility] Eosinophils (Bld) [#/Vol] 0.0 10*3/uL Normal 0.0-0.5 [facility] Comment on above: Order Comment: No: D o not add to previous draw Performed By: #### 5 0103 ####[facility] [place] [address], [facility] Eosinophils/100 WBC (Bld) 0.0 % Normal 0.0-6.0 [facility] Comment on above: Order Comment: No: D o not add to previous draw Performed By: #### 5 0103 ####[facility] Erythrocyte distribution width (RBC) [Ratio] 14.4 % Normal 11.5-15.0 [facility] Comment on above: Order Comment: No: D o not add to previous draw Performed By: #### 5 0103 ####[id number] [place] [address], [facility] Hematocrit (Bld) [Volume fraction] 28.9 % Low 39.0-50.0 [facility] Comment on above: Order Comment: No: D o not add to previous draw Performed By: #### 5 0103 ####[facility] [facility].[address] Hemoglobin (Bld) [Mass/Vol] 9.6 g/dL Low 13.0-17.0 [facility] Comment on above: Order Comment: No: D o not add to previous draw Performed By: #### 5 0103 ####[facility] IMMATURE GRANS 0.5 % Normal 0.0-1.0 [facility] Comment on above: Order Comment: No: D o not add to previous draw Performed By: #### 5 0103 ####[facility] [place] [address] Lymphocytes (Bld) [#/Vol] 1.3 10*3/uL Normal 1.2-4.0 [facility] Comment on above: Order Comment: No: D o not add to previous draw Performed By: #### 5 0103 ####[facility] Lymphocytes/100 WBC (Bld) 12.1 % Low 20.0-45.0 [facility] Comment on above: Order Comment: No: D o not add to previous draw Performed By: #### 5 0103 ####[facility] [facility].[address] MCH (RBC) [Entitic mass] 30.6 pg Normal 27.0-33.0 [facility] Comment on above: Order Comment: No: D o not add to previous draw Performed By: #### 5 0103 ####[facility] [place] [address] MCHC (RBC) [Mass/Vol] 33.2 g/dL Normal 32.0-35.0 [facility] Comment on above: Order Comment: No: D o not add to previous draw Performed By: #### 5 0103 ####[facility] [facility].[address] MCV (RBC) [Entitic vol] 92.0 fL Normal 82.0-98.0 [facility] Comment on above: Order Comment: No: D o not add to previous draw Performed By: #### 5 0103 ####[facility] [place] [address], [facility] Monocytes (Bld) [#/Vol] 1.2 10*3/uL High 0.1-1.0 [facility] Comment on above: Order Comment: No: D o not add to previous draw Performed By: #### 5 0103 ####[facility] MONOS 10.9 % Normal 5.0-12.0 [facility] Comment on above: Order Comment: No: D o not add to previous draw Performed By: #### 5 3 ####[facility] [facility].[address] Neutrophils/100 WBC (Bld) 76.4 % High 40.0-72.0 [facility] Comment on above: Order Comment: No: D o not add to previous draw Performed By: #### 5 3 ####[facility] [facility].[address] Nucleated RBC/100 WBC (Bld) [Ratio] 0 % Normal 0-0 [facility] Comment on above: Order Comment: No: D o not add to previous draw Performed By: #### 5 3 ####[facility] [place] [address], [facility] PLAT CNT 175 10*3/uL Normal 150-400 [facility] Comment on above: Order Comment: No: D o not add to previous draw Performed By: #### 5 3 ####[facility] [place] [address], [place] RBC (Bld) [#/Vol] 3.14 10*6/uL Low 4.20-5.70 [facility] Comment on above: Order Comment: No: D o not add to previous draw Performed By: #### 5 0103 ####[facility] [place] [address], [place] WBC (Bld) [#/Vol] 10.92 10*3/uL High 4.00-10.60 [facility] Comment on above: Order Comment: No: D o not add to previous draw Performed By: #### 5 0103 ####[facility] [place] [address], [facility] LACTATE BLOODon 04-09-2021 Lactate [Moles/Vol] 0.9 mmol/L Normal .5-2.2 [facility] Comment on above: Order Comment: No: D o not add to previous draw Performed By: #### 1 0054 ####[facility] [place] [address], [facility] Lactate [Moles/Vol] 3.8 mmol/L High .5-2.2 [facility] Comment on above: Order Comment: No: D o not add to previous draw Result Comment: M-CR ITICAL RESULT(S) REVIEWED, CALLED TO AND READ BACK BY [place] DRIVER 0855 Performed By: #### 1 0054 ####[facility] [place] [address], [place] Lactate [Moles/Vol] 7.1 mmol/L Critically high .5-2.2 [facility] Comment on above: Order Comment: post op day 1No: Do not add to previous draw Result Comment: M-DE EVIOUS CRITICAL RESULT Performed By: #### 1 0054 ####[facility] [place] [address], [place] MAGNESIUM BLOODon 04-09-2021 Magnesium [Mass/Vol] 2.3 mg/dL Normal 1.9-2.7 [facility] Comment on above: Order Comment: No: D o not add to previous draw Performed By: #### 1 0070, [id number] ####[facility] [place] [address], [place] Magnesium [Mass/Vol] 2.2 mg/dL Normal 1.9-2.7 [facility] Comment on above: Order Comment: added from prior Performed By: #### 0 0071, [id number] ####[facility] [place] [address], [place] Magnesium [Mass/Vol] 2.4 mg/dL Normal 1.9-2.7 [facility] Comment on above: Order Comment: post op day 1No: Do not add to previous draw Performed By: #### 1 0070, [id number] ####[facility] [place] [address], [place] Operative Reporton Operative Report Normal [facility] POC GLUCOSE LABon 04-09-2021 Glucose [Mass/Vol] 162 mg/dL High 70-100 [facility] Comment on above: Performed By: #### 8 5499 ####[facility] [place] [address], [place] Glucose [Mass/Vol] 128 mg/dL High 70-100 [facility] Comment on above: Performed By: #### 8 5499 ####[facility] [place] [address], [place] Glucose [Mass/Vol] 117 mg/dL High 70-100 [facility] Comment on above: Performed By: #### 8 5499 ####[facility] [place] [address], [place] Glucose [Mass/Vol] 110 mg/dL High 70-100 [facility] Comment on above: Performed By: #### 8 5499 ####[facility] [place] [address], [place] Glucose [Mass/Vol] 65 mg/dL Low 70-100 [facility] Comment on above: Performed By: #### 8 5499 ####[facility] [place] [address], [place] Glucose [Mass/Vol] 86 mg/dL Normal 70-100 [facility] Comment on above: Performed By: #### 8 5499 ####[facility] [place] [address], [place] Glucose [Mass/Vol] 127 mg/dL High 70-100 [facility] Comment on above: Performed By: #### 8 5499 ####[facility] [place] [address], [place] Glucose [Mass/Vol] 230 mg/dL High 70-100 [facility] Comment on above: Performed By: #### 8 5499 ####[facility] [place] [address], [place] Glucose [Mass/Vol] 244 mg/dL High 70-100 [facility] Comment on above: Performed By: #### 8 5499 ####[facility] [place] [address], [place] Glucose [Mass/Vol] 283 mg/dL High 70-100 [facility] Comment on above: Performed By: #### 8 5499 ####[facility] [place] [address], [place] Glucose [Mass/Vol] 326 mg/dL High 70-100 [facility] Comment on above: Performed By: #### 8 5499 ####[facility] [place] [address], [place] Glucose [Mass/Vol] 347 mg/dL High 70-100 [facility] Comment on above: Performed By: #### 8 5499 ####[facility] [place] [address], [place] Glucose [Mass/Vol] 258 mg/dL High 70-100 [facility] Comment on above: Performed By: #### 8 5499 ####[facility] [place] [address], [place] Glucose [Mass/Vol] 334 mg/dL High 70-100 [facility] Comment on above: Performed By: #### 8 5499 ####[facility] [place] [address], [place] Glucose [Mass/Vol] 338 mg/dL High 70-100 [facility] Comment on above: Performed By: #### 8 5499 ####[facility] [place] [address], [place] Glucose [Mass/Vol] 321 mg/dL High 70-100 [facility] Comment on above: Performed By: #### 8 5499 ####[facility] [place] [address], [place] Glucose [Mass/Vol] 302 mg/dL High 70-100 [facility] Comment on above: Performed By: #### 8 5499 ####[facility] [place] [address], [place] PORTABLE CHEST 1 VIEWon 03-24 PORTABLE CHEST 1 VIEW Normal [facility] Comment on above: Order Comment: Check Chest Tube Position POTASSIUM BLOODon 04-09-2021 Potassium [Moles/Vol] 4.6 mmol/L Normal 3.5-5.1 [facility] Comment on above: Order Comment: No: D o not add to previous draw Performed By: #### 1 0070, [id number] ####[facility] [place] [address], [facility] PROTHROMBIN TIMEon 1 INR Coag (PPP) [Relative time] 1.22 {INR} High 0.91-1.16 [facility] Comment on above: Order Comment: post op [...] OF ACTION, CLINICALEFFECTIVENESS, AND OPTIMAL THERAPEUTIC RANGE. [id number]. Performed By: #### 5 7307, 84917 ####[facility] [place] [address], [facility] PT Coag (PPP) [Time] 15.4 s High 12.3-14.8 [facility] Comment on above: Order Comment: post op day 1No: Do not add to previous draw Result Comment: ALL RESULTS MUST BE INTERPRETED WITH RESPECT TO BLOOD DRAWING ARTIFACTOR DILUTION ERROR OF ANTICOAGULANT AT THE TIME OF SAMPLING. Performed By: #### 5 73, 21547 ####[facility] [place] [address], [facility] ACTIVATED CLOTTING TIMEon ACTIVATED CLOTTING TIME 121 sec Normal 82-152 [facility] Comment on above: Performed By: #### 3 0739 ####[facility] [place] [address], [place] ACTIVATED CLOTTING TIME 305 sec High 82-152 [facility] Comment on above: Performed By: #### 3 0739 ####[facility] [place] [address], [place] ACTIVATED CLOTTING TIME 286 sec High 82-152 [facility] Comment on above: Performed By: #### 3 0739 ####[facility] [place] [address], [place] ACTIVATED CLOTTING TIME 279 sec High 82-152 [facility] Comment on above: Performed By: #### 3 0739 ####[facility] [place] [address], [place] ACTIVATED CLOTTING TIME 325 sec High 82-152 [facility] Comment on above: Performed By: #### 3 0739 ####[facility] [place] [address], [place] ACTIVATED CLOTTING TIME 184 sec High 82-152 [facility] Comment on above: Performed By: #### 3 0739 ####[facility] [place] [address], [place] ACTIVATED CLOTTING TIME 121 sec Normal 82-152 [facility] Comment on above: Performed By: #### 3 0739 ####[facility] [place] [address], [place] APTTon 04-08-2021 aPTT Coag (Bld) [Time] 30.4 s Normal 25.0-35.0 [facility] Comment on above: Order Comment: No: D [...] THIS PURPOSE. Performed By: #### 5 6101, 63191 ####[facility] [place] [address], [facility] aPTT Coag (Bld) [Time] 30.6 s Normal 25.0-35.0 [facility] Comment on above: Result Comment: ALL [...] THIS PURPOSE. Performed By: #### 5 7307, 49252, 28677 ####[facility] ARTERIAL BLOOD GAS WITH ICAo n 04-08-2021 BASE EXCESS -4 mmol/L Low -2-3 [facility] Comment on above: Order Comment: on ar rival to CVU Performed By: #### 8 4511 ####[facility] [place] [address], [facility] DELIVERY SYSTEMS MV Normal [facility] Comment on above: Order Comment: on ar rival to CVU Performed By: #### 8 4511 ####[facility] [place] [address], [facility] FIO2 70 % Normal [facility] Comment on above: Order Comment: on ar rival to CVU Performed By: #### 8 4511 ####[facility] [place] [address], [facility] HCO3 (Bld) [Moles/Vol] 21 mmol/L Normal 21-28 [facility] Comment on above: Order Comment: on ar rival to CVU Performed By: #### 8 4511 ####[facility] [place] [address], [facility] IONIZED CALCIUM 1.09 mmol/L Low 1.13-1.32 [facility] Comment on above: Order Comment: on ar rival to CVU Performed By: #### 8 4511 ####[facility] [place] [address], [facility] MIN VOLUME 14.2 Normal [facility] Comment on above: Order Comment: on ar rival to CVU Result Comment: Resu lt changed by DOTTY on 04/08/2021 19:16. The previous value was16.0. Performed By: #### 8 4511 ####[facility] [place] [address], [facility] MODALITY SIMV Normal [facility] Comment on above: Order Comment: on ar rival to CVU Performed By: #### 8 4511 ####[facility] [place] [address], [facility] Oxygen (Bld) [Partial pressure] 69 mm[Hg] Low 83-108 [facility] Comment on above: Order Comment: on ar rival to CVU Performed By: #### 8 4511 ####[facility] [place] [address], [facility] Oxygen saturation in Blood 93.8 % Low 94.0-97.0 [facility] Comment on above: Order Comment: on ar rival to CVU Performed By: #### 8 4511 ####[facility] [place] [address], [facility] PCO2 36 mmHg Normal 35-45 [facility] Comment on above: Order Comment: on ar rival to CVU Performed By: #### 8 4511 ####[facility] [place] [address], [facility] PEEP 8.0 CMH20 Normal [facility] Comment on above: Order Comment: on ar rival to CVU Performed By: #### 8 4511 ####[facility] [place] [address], [facility] PF RATIO 99 mmHg Normal [facility] Comment on above: Order Comment: on ar rival to CVU Performed By: #### 8 4511 ####[facility] [place] [address], [facility] pH (Bld) 7.37 [pH] Normal 7.35-7.45 [facility] Comment on above: Order Comment: on ar rival to CVU Performed By: #### 8 4511 ####[facility], [place] [address] [place] [address] PRESSURE SUPPORT 10 Normal [facility] Comment on above: Order Comment: on ar rival to CVU Performed By: #### 8 4511 ####[facility] [place] [address], [facility] Respiratory rate 16 /min Normal [facility] Comment on above: Order Comment: on ar rival to CVU Performed By: #### 8 4511 ####[facility] [place] [address], [facility] TIDAL VOLUME (VT) CC 700 Normal [facility] Comment on above: Order Comment: on ar rival to CVU Performed By: #### 8 4511 ####[facility] [place] [address], [facility] BASE EXCESS -4 mmol/L Low -2-3 [facility] Comment on above: Performed By: #### 8 4511 ####[facility] [place] [address], [facility] DEL[employer]ERY [employer] VENT Normal [facility] Comment on above: Performed By: #### 8 4511 ####[facility] [place] [address], [facility] FIO2 70 % Normal [facility] Comment on above: Performed By: #### 8 4511 ####[facility] [place] [address], [facility] HCO3 (Bld) [Moles/Vol] 23 mmol/L Normal 21-28 [facility] Comment on above: Performed By: #### 8 4511 ####[address] [place] [address], [facility] IONIZED CALCIUM 1.14 mmol/L Normal 1.13-1.32 [facility] Comment on above: Performed By: #### 8 4511 ####[facility] [place] [address], [facility] MIN VOLUME 9.0 Normal [facility] Comment on above: Performed By: #### 8 4511 ####[facility] [place] [address], [facility] MODALITY SIMV Normal [facility] Comment on above: Performed By: #### 8 4511 ####[facility] [place] [address], [facility] Oxygen (Bld) [Partial pressure] 70 mm[Hg] Low 83-108 [facility] Comment on above: Performed By: #### 8 4511 ####[facility] [place] [address], [facility] Oxygen saturation in Blood 92.5 % Low 94.0-97.0 [facility] Comment on above: Performed By: #### 8 4511 ####[facility] PCO2 48 mmHg High 35-45 [facility] Comment on above: Performed By: #### 8 4511 ####[facility] [place] [address], [facility] PEEP 8.0 CMH20 Normal [facility] Comment on above: Performed By: #### 8 4511 ####[facility] [place] [address], [facility] PF RATIO 100 mmHg Normal [facility] Comment on above: Performed By: #### 8 4511 ####[facility] pH (Bld) 7.28 [pH] Low 7.35-7.45 [facility] Comment on above: Performed By: #### 8 4511 ####[facility] PRESSURE SUPPORT 10 Normal [facility] Comment on above: Performed By: #### 8 4511 ####[facility] Respiratory rate 14 /min Normal [facility] Comment on above: Performed By: #### 8 4511 ####[facility] TIDAL VOLUME (VT) CC 550 Normal [facility] Comment on above: Performed By: #### 8 4511 ####[facility] BASIC METABOLIC PANELon 08- Calcium [Mass/Vol] 7.7 mg/dL Low 8.6-10.3 [facility] Comment on above: Order Comment: No: D o not add to previous draw Performed By: #### 1 0070, 08330, 52052 ####[facility] [place] [address], [place] Chloride [Moles/Vol] 103 mmol/L Normal 98-107 [facility] Comment on above: Order Comment: No: D o not add to previous draw Performed By: #### 1 0070, 99498, 40539 ####[facility] [place] [address], [place] CO2 [Moles/Vol] 21 mmol/L Normal 21-31 The [facility] Comment on above: Order Comment: No: D o not add to previous draw Performed By: #### 1 0070, 73804, 60615 ####[facility] [place] [address], [facility] Creatinine [Mass/Vol] 1.15 mg/dL Normal 0.70-1.30 [facility] Comment on above: Order Comment: No: D o not add to previous draw Performed By: #### 1 0070, 52960, 81013 ####[facility] [place] [address], [place] GFR/1.73 sq M.predicted among blacks MDRD (S/P/Bld) [Vol rate/Area] mL/min/{1.73_m2} Normal >60 [facility] Comment on above: Order Comment: No: D o not add to previous draw Result Comment: Calc ulation may not be valid for patients over 70 years Performed By: #### 1 0070, 26435, 49738 ####[facility] [place] [address], [place] GFR/1.73 sq M.predicted among non-blacks MDRD (S/P/Bld) [Vol rate/Area] mL/min/{1.73_m2} Normal >60 [facility] Comment on above: Order Comment: No: D o not add to previous draw Result Comment: Calc ulation may not be valid for patients over 70 years Performed By: #### 1 0070, 80728, 90099 ####[facility] [place] [address], [place] Glucose [Mass/Vol] 224 mg/dL High 70-100 [facility] Comment on above: Order Comment: No: D o not add to previous draw Performed By: #### 1 0, 79984, 04200 ####[facility] [place] [address], [place] Potassium [Moles/Vol] 3.9 mmol/L Normal 3.5-5.1 [facility] Comment on above: Order Comment: No: D o not add to previous draw Performed By: #### 1 0, 25794, 98055 ####[facility] [place] [address], [place] Sodium [Moles/Vol] 134 mmol/L Low 136-145 [facility] Comment on above: Order Comment: No: D o not add to previous draw Performed By: #### 1 0, 04744, 42744 ####[facility] [place] [address], [place] Urea nitrogen [Mass/Vol] 22 mg/dL Normal 7-25 [facility] Comment on above: Order Comment: No: D o not add to previous draw Performed By: #### 1 0, 72608, 12398 ####[facility] [place] [address], [place] Calcium [Mass/Vol] 7.7 mg/dL Low 8.6-10.3 [facility] Comment on above: Performed By: #### 1 0, 98151, 83536 ####[facility] [place] [address], [place] Chloride [Moles/Vol] 105 mmol/L Normal 98-107 [facility] Comment on above: Performed By: #### 1 0, 26305, 80534 ####[facility] [place] [address], [place] CO2 [Moles/Vol] 24 mmol/L Normal 21-[address] [facility] Comment on above: Performed By: #### 1 0070, 35146, 85439 ####[facility] [place] [address], [place] Creatinine [Mass/Vol] 0.81 mg/dL Normal 0.70-1.30 [facility] Comment on above: Performed By: #### 1 0, 03962, 72520 ####[facility] [place] [address], [place] GFR/1.73 sq M.predicted among blacks MDRD (S/P/Bld) [Vol rate/Area] mL/min/{1.73_m2} Normal >60 [facility] Comment on above: Result Comment: Calc ulation may not be valid for patients over 70 years Performed By: #### 1 0070, 97617, 83722 ####[facility] [place] [address], [place] GFR/1.73 sq M.predicted among non-blacks MDRD (S/P/Bld) [Vol rate/Area] mL/min/{1.73_m2} Normal >60 [facility] Comment on above: Result Comment: Calc ulation may not be valid for patients over 70 years Performed By: #### 1 0, 04172, 46557 ####[facility] [place] [address], [place] Glucose [Mass/Vol] 189 mg/dL High 70-100 [facility] Comment on above: Performed By: #### 1 0070, 99696, 98515 ####[facility] [place] [address], [place] Potassium [Moles/Vol] 4.3 mmol/L Normal 3.5-5.1 [facility] Comment on above: Performed By: #### 1 0070, 95345, 68292 ####[facility] [place] [address], [place] Sodium [Moles/Vol] 133 mmol/L Low 136-145 [facility] Comment on above: Performed By: #### 1 0070, 61828, 53409 ####[facility] [place] [address], [place] Urea nitrogen [Mass/Vol] 20 mg/dL Normal 7-25 [facility] Comment on above: Performed By: #### 1 0070, 08630, 92668 ####[facility] [place] [address], [place] Calcium [Mass/Vol] 8.7 mg/dL Normal 8.6-10.3 [facility] Comment on above: Order Comment: No: D o not add to previous draw Performed By: #### 0 0071, 71948, 49187 ####[facility] [place] [address], [place] Chloride [Moles/Vol] 103 mmol/L Normal 98-107 [facility] Comment on above: Order Comment: No: D o not add to previous draw Performed By: #### 0 0071, 51004, 60980 ####[facility] [place] [address], [place] CO2 [Moles/Vol] 26 mmol/L Normal 21-31 [facility] Comment on above: Order Comment: No: D o not add to previous draw Performed By: #### 0 0071, 32681, 62322 ####[facility] [place] [address], [place] Creatinine [Mass/Vol] 0.74 mg/dL Normal 0.70-1.30 [facility] Comment on above: Order Comment: No: D o not add to previous draw Performed By: #### 0 0071, 38414, 27612 ####[facility] [place] [address], [facility] GFR/1.73 sq M.predicted among blacks MDRD (S/P/Bld) [Vol rate/Area] mL/min/{1.73_m2} Normal >60 [facility] Comment on above: Order Comment: No: D o not add to previous draw Result Comment: Calc ulation may not be valid for patients over 70 years Performed By: #### 0 0071, 90661, 65591 ####[facility] [place] [address], [facility] GFR/1.73 sq M.predicted among non-blacks MDRD (S/P/Bld) [Vol rate/Area] mL/min/{1.73_m2} Normal >60 [facility] Comment on above: Order Comment: No: D o not add to previous draw Result Comment: Calc ulation may not be valid for patients over 70 years Performed By: #### 0 0071, 71359, 42860 ####[facility] [place] [address], [facility] Glucose [Mass/Vol] 107 mg/dL High 70-100 [facility] Comment on above: Order Comment: No: D o not add to previous draw Performed By: #### 0 0071, 34116, 03946 ####[facility] [place] [address], [facility] Potassium [Moles/Vol] 4.1 mmol/L Normal 3.5-5.1 [facility] Comment on above: Order Comment: No: D o not add to previous draw Performed By: #### 0 0071, 69095, 52302 ####[facility] [place] [address], [place] Sodium [Moles/Vol] 133 mmol/L Low 136-145 [facility] Comment on [facility]: Order Comment: No: D o not add to previous draw Performed By: #### 0 0071, 35582, 94944 ####[facility] [place] [address], [facility] Urea nitrogen [Mass/Vol] 19 mg/dL Normal 7-25 [facility] Comment on above: Order Comment: No: D o not add to previous draw Performed By: #### 0 0071, 63307, 37406 ####[facility] [facility].[address] CBC COMPLETE BLOOD COUNTon 0 04-08-2021 Erythrocyte distribution width (RBC) [Ratio] 14.4 % Normal 11.5-15.0 [facility] Comment on above: Order Comment: No: D o not add to previous draw Performed By: #### 5 0608 ####[facility] [facility].[address] Hematocrit (Bld) [Volume fraction] 33.4 % Low 39.0-50.0 [facility] Comment on above: Order Comment: No: D o not add to previous draw Performed By: #### 5 0608 ####[place] [address] [facility].[address] Hemoglobin (Bld) [Mass/Vol] 10.9 g/dL Low 13.0-17.0 [facility] Comment on above: Order Comment: No: D o not add to previous draw Performed By: #### 5 0608 ####[facility] [place] [address], [facility] MCH (RBC) [Entitic mass] 30.4 pg Normal 27.0-33.0 [facility] Comment on above: Order Comment: No: D o not add to previous draw Performed By: #### 5 0608 ####[facility] [place] [address], [facility] MCHC (RBC) [Mass/Vol] 32.6 g/dL Normal 32.0-35.0 [facility] Comment on above: Order Comment: No: D o not add to previous draw Performed By: #### 5 0608 ####[facility] [facility] [place] [address], [facility] MCV (RBC) [Entitic vol] 93.3 fL Normal 82.0-98.0 [facility] Comment on above: Order Comment: No: D o not add to previous draw Performed By: #### 5 0608 ####[facility] [facility].[address] Nucleated RBC/100 WBC (Bld) [Ratio] 0 % Normal 0-0 [facility] Comment on above: Order Comment: No: D o not add to previous draw Performed By: #### 5 0608 ####[facility] [place] [address], [facility] PLAT CNT 228 10*3/uL Normal 150-400 [facility] Comment on above: Order Comment: No: D o not add to previous draw Performed By: #### 5 0608 ####[place] [address] [place] [address], [facility] RBC (Bld) [#/Vol] 3.58 10*6/uL Low 4.20-5.70 [facility] Comment on above: Order Comment: No: D o not add to previous draw Performed By: #### 5 0608 ####[facility] [place] [address], [facility] WBC (Bld) [#/Vol] 18.53 10*3/uL High 4.00-10.60 [facility] Comment on above: Order Comment: No: D o not add to previous draw Performed By: #### 5 0608 ####[facility] [place] [address], [facility] Erythrocyte distribution width (RBC) [Ratio] 14.6 % Normal 11.5-15.0 [facility] Comment on above: Performed By: #### 5 0608 ####[facility] Hematocrit (Bld) [Volume fraction] 35.5 % Low 39.0-50.0 [facility] Comment on above: Performed By: #### 5 0608 ####[address] Hemoglobin (Bld) [Mass/Vol] 11.5 g/dL Low 13.0-17.0 [facility] Comment on above: Performed By: #### 5 0608 ####[address] MCH (RBC) [Entitic mass] 30.5 pg Normal 27.0-33.0 [facility] Comment on above: Performed By: #### 5 0608 ####[address] MCHC (RBC) [Mass/Vol] 32.4 g/dL Normal 32.0-35.0 [facility] Comment on above: Performed By: #### 5 0608 ####[address] MCV (RBC) [Entitic vol] 94.2 fL Normal 82.0-98.0 [facility] Comment on above: Performed By: #### 5 0608 ####[address] Nucleated RBC/100 WBC (Bld) [Ratio] 0 % Normal 0-0 [facility] Comment on above: Performed By: #### 5 0608 ####[address] PLAT CNT 219 10*3/uL Normal 150-400 [facility] Comment on above: Performed By: #### 5 0608 ####[facility] [facility] [place] [address], [facility] RBC (Bld) [#/Vol] 3.77 10*6/uL Low 4.20-5.70 [facility] Comment on above: Performed By: #### 5 0608 ####[facility] [place] [address], [facility] WBC (Bld) [#/Vol] 14.37 10*3/uL High 4.00-10.60 [facility] Comment on above: Performed By: #### 5 0608 ####[facility] [facility].[address] Erythrocyte distribution width (RBC) [Ratio] 14.7 % Normal 11.5-15.0 [facility] Comment on above: Order Comment: No: D o not add to previous draw Performed By: #### 5 0608 ####[place] [address] Hematocrit (Bld) [Volume fraction] 40.7 % Normal 39.0-50.0 [facility] Comment on above: Order Comment: No: D o not add to previous draw Performed By: #### 5 0608 ####[facility] [facility].[address] Hemoglobin (Bld) [Mass/Vol] 13.5 g/dL Normal 13.0-17.0 [facility] Comment on above: Order Comment: No: D o not add to previous draw Performed By: #### 5 0608 ####[facility] MCH (RBC) [Entitic mass] 30.5 pg Normal 27.0-33.0 [facility] Comment on above: Order Comment: No: D o not add to previous draw Performed By: #### 5 0608 ####[facility] MCHC (RBC) [Mass/Vol] 33.2 g/dL Normal 32.0-35.0 [facility] Comment on above: Order Comment: No: D o not add to previous draw Performed By: #### 5 0608 ####[facility] MCV (RBC) [Entitic vol] 92.1 fL Normal 82.0-98.0 [facility] Comment on above: Order Comment: No: D o not add to previous draw Performed By: #### 5 0608 ####[place] [address] Nucleated RBC/100 WBC (Bld) [Ratio] 0 % Normal 0-0 [facility] Comment on above: Order Comment: No: D o not add to previous draw Performed By: #### 5 0608 ####[facility] PLAT CNT 233 10*3/uL Normal 150-400 [facility] Comment on above: Order Comment: No: D o not add to previous draw Performed By: #### 5 0608 ####[address] RBC (Bld) [#/Vol] 4.42 10*6/uL Normal 4.20-5.70 [facility] Comment on above: Order Comment: No: D o not add to previous draw Performed By: #### 5 0608 ####[facility] [place] [address] WBC (Bld) [#/Vol] 7.11 10*3/uL Normal 4.00-10.60 [facility] Comment on above: Order Comment: No: D o not add to previous draw Performed By: #### 5 0608 ####[facility] [place] [address], [facility] COOXIMETRYon 04-08-2021 COHB 1 % Normal [facility] Comment on above: Performed By: #### 7 0207 ####[facility] [place] [address], [facility] METHB 1 % Normal [facility] Comment on above: Performed By: #### 7 0207 ####[facility] [place] [address], [facility] Oxygen saturation in Blood 77.5 % High 65.0-75.0 [facility] Comment on above: Performed By: #### 7 0207 ####[facility] [place] [address], [facility] THB 10.7 g/dL Normal [facility] Comment on above: Performed By: #### 7 0207 ####[facility] [place] [address], [facility] FERRITINon 04-08-2021 Ferritin [Mass/Vol] 116 ng/mL Normal 24-336 [facility] Comment on above: Performed By: #### 1 0070, 73421, 84127 ####[facility] [facility] [place] [address], [facility] FIBRINOGENon 04-08-2021 FIBRINOGEN 362 mg/dL Normal 150-425 [facility] Comment on above: Performed By: #### 5 7307, 85343, 85744 ####[facility] [place] [address], [facility] LACTATE BLOODon 04-08-2021 Lactate [Moles/Vol] 3.7 mmol/L High .5-2.2 [facility] Comment on above: Order Comment: No: D o not add to previous draw Result Comment: M-CR ITICAL RESULT(S) REVIEWED, CALLED TO AND READ BACK BY Kleber TRAN at 2203. Performed By: #### 1 0054 ####[facility] [place] [address], [facility] Lactate [Moles/Vol] 2.5 mmol/L High .5-2.2 [facility] Comment on above: Order Comment: No: D o not add to previous draw Performed By: #### 1 0054 ####[facility] [place] [address], [place] Lactate [Moles/Vol] 1.0 mmol/L Normal .5-2.2 [facility] Comment on above: Performed By: #### 1 0054 ####[facility] [place] [address], [place] MAGNESIUM BLOODon 04-08-2021 Magnesium [Mass/Vol] 2.3 mg/dL Normal 1.9-2.7 [facility] Comment on above: Order Comment: No: D o not add to previous draw Performed By: #### 1 0070, 24926, 96195 ####[facility] [place] [address], [place] Magnesium [Mass/Vol] 1.9 mg/dL Normal 1.9-2.7 [facility] Comment on above: Performed By: #### 1 0070, 28078, 07562 ####[facility] [place] [address], [place] Magnesium [Mass/Vol] 2.2 mg/dL Normal 1.9-2.7 [facility] Comment on above: Order Comment: No: D o not add to previous draw Performed By: #### 0 0071, 33862, 88292 ####[facility] [place] [address], [place] PERFUSION BLOOD PANELon 03-24 BASE EXCESS -3.0 mmol/L Low -2.0-3.0 [facility] Comment on above: Performed By: #### 3 0738 ####[facility] [place] [address], [place] Glucose [Mass/Vol] 193 mg/dL High 70-105 [facility] Comment on above: Performed By: #### 3 0738 ####[facility] [place] [address], [facility] Hematocrit (Bld) [Volume fraction] 36 % Low 38-51 [facility] Comment on above: Performed By: #### 3 0738 ####[facility] [place] [address], [facility] Hemoglobin (Bld) [Mass/Vol] 12.2 g/dL Normal 12.0-17.0 [facility] Comment on above: Performed By: #### 3 0738 ####[facility] [place] [address], [facility] IONIZED CALCIUM 1.22 mmol/L Normal 1.12-1.[address] [facility] Comment on above: Performed By: #### 3 0738 ####[facility] [place] [address], [facility] Oxygen (Bld) [Partial pressure] 131.0 mm[Hg] High 80.0-105.0 [facility] Comment on above: Performed By: #### 3 0738 ####[facility] [id number], [facility] PCO2 51.6 mmHg High 35.0-45.0 [facility] Comment on above: Performed By: #### 3 0738 ####[facility] [place] [address], [place] pH (Bld) 7.28 [pH] Low 7.35-7.45 [facility] Comment on above: Performed By: #### 3 0738 ####[facility] [place] [address], [facility] Potassium [Moles/Vol] 4.4 mmol/L Normal 3.5-4.9 [facility] Comment on above: Performed By: #### 3 0738 ####[facility] [place] [address], [facility] Sodium [Moles/Vol] 139 mmol/L Normal 138-146 [facility] Comment on above: Performed By: #### 3 0738 ####[facility] [place] [address], [facility] BASE EXCESS -2.0 mmol/L Normal -2.0-3.0 [facility] Comment on above: Performed By: #### 3 0738 ####[place] [address] [place] [address], [facility] Glucose [Mass/Vol] 156 mg/dL High 70-105 [facility] Comment on above: Performed By: #### 3 0738 ####[place] [address] [place] [address], [facility] Hematocrit (Bld) [Volume fraction] 36 % Low 38-51 [facility] Comment on above: Performed By: #### 3 0738 ####[facility] [place] [address], [facility] Hemoglobin (Bld) [Mass/Vol] 12.2 g/dL Normal 12.0-17.0 [facility] Comment on above: Performed By: #### 3 0738 ####[place] [address] [id number], [facility] IONIZED CALCIUM 1.17 mmol/L Normal 1.12-1.32 [facility] Comment on above: Performed By: #### 3 0738 ####[facility] [place] [address], [facility] Oxygen (Bld) [Partial pressure] 196.0 mm[Hg] High 80.0-105.0 [facility] Comment on above: Performed By: #### 3 0738 ####[facility] [place] [address], [place] PCO2 46.9 mmHg High 35.0-45.0 [facility] Comment on above: Performed By: #### 3 0738 ####[facility] [place] [address], [facility] pH (Bld) 7.33 [pH] Low 7.35-7.45 [facility] Comment on above: Performed By: #### 3 0738 ####[facility] [place] [address], [place] Potassium [Moles/Vol] 4.5 mmol/L Normal 3.5-4.9 [facility] Comment on above: Performed By: #### 3 0738 ####[facility] [place] [address], [place] Sodium [Moles/Vol] 139 mmol/L Normal 138-146 [facility] Comment on above: Performed By: #### 3 0738 ####[facility] [place] [address], [place] BASE EXCESS -1.0 mmol/L Normal -2.0-3.0 [facility] Comment on above: Performed By: #### 3 0738 ####[facility] [place] [address], [place] Glucose [Mass/Vol] 133 mg/dL High 70-105 [facility] Comment on above: Performed By: #### 3 0738 ####[facility] Hematocrit (Bld) [Volume fraction] 37 % Low 38-51 [facility] Comment on above: Performed By: #### 3 0738 ####[facility] [facility].[address] Hemoglobin (Bld) [Mass/Vol] 12.6 g/dL Normal 12.0-17.0 [facility] Comment on above: Performed By: #### 3 0738 ####[address] IONIZED CALCIUM 1.19 mmol/L Normal 1.12-1.[address] [facility] Comment on above: Performed By: #### 3 0738 ####[address] Oxygen (Bld) [Partial pressure] 184.0 mm[Hg] High 80.0-105.0 [facility] Comment on above: Performed By: #### 3 0738 ####[address] PCO2 46.6 mmHg High 35.0-45.0 [facility] Comment on above: Performed By: #### 3 0738 ####[place] [address] [facility].[address] pH (Bld) 7.34 [pH] Low 7.35-7.45 [facility] Comment on above: Performed By: #### 3 0738 ####[address] Potassium [Moles/Vol] 4.3 mmol/L Normal 3.5-4.9 [facility] Comment on above: Performed By: #### 3 0738 ####[address] [place] [address], [facility] Sodium [Moles/Vol] 139 mmol/L Normal 138-146 [facility] Comment on above: Performed By: #### 3 0738 ####[facility] [place] [address], [facility] BASE EXCESS -1.0 mmol/L Normal -2.0-3.0 [facility] Comment on above: Performed By: #### 3 0738 ####[place] [address] [place] [address], [facility] Glucose [Mass/Vol] 118 mg/dL High 70-105 [facility] Comment on above: Performed By: #### 3 0738 ####[address] [place] [address], [facility] Hematocrit (Bld) [Volume fraction] 39 % Normal 38-51 [facility] Comment on above: Performed By: #### 3 0738 ####[place] [address] [place] [address], [facility] Hemoglobin (Bld) [Mass/Vol] 13.3 g/dL Normal 12.0-17.0 [facility] Comment on above: Performed By: #### 3 0738 ####[place] [address] [place] [address], [facility] IONIZED CALCIUM 1.17 mmol/L Normal 1.12-1.[address] [facility] Comment on above: Performed By: #### 3 0738 ####[place] [address] [place] [address], [facility] Oxygen (Bld) [Partial pressure] 96.0 mm[Hg] Normal 80.0-105.0 [facility] Comment on above: Performed By: #### 3 0738 ####[address] [place] [address], [facility] PCO2 41.2 mmHg Normal 35.0-45.0 [facility] Comment on above: Performed By: #### 3 0738 ####[facility] [place] [address], [facility] pH (Bld) 7.38 [pH] Normal 7.35-7.45 [facility] Comment on above: Performed By: #### 3 0738 ####[facility] [place] [address], [facility] Potassium [Moles/Vol] 4.3 mmol/L Normal 3.5-4.9 [facility] Comment on above: Performed By: #### 3 0738 ####[facility] [place] [address], [place] Sodium [Moles/Vol] 139 mmol/L Normal 138-146 [facility] Comment on above: Performed By: #### 3 0738 ####[facility] [place] [address], [facility] PHOSPHORUS BLOODon Phosphate [Mass/Vol] 4.0 mg/dL Normal 2.5-5.0 [facility] Comment on above: Order Comment: No: D o not add to previous draw Performed By: #### 1 0070, 88450, 85103 ####[facility] [place] [address], [facility] Phosphate [Mass/Vol] 3.8 mg/dL Normal 2.5-5.0 [facility] Comment on above: Order Comment: No: D o not add to previous draw Performed By: #### 0 [id number], [id number] ####[facility] [place] [address], [place] POC GLUCOSE LABon 04-08-2021 Glucose [Mass/Vol] 252 mg/dL High 70-100 [facility] Comment on above: Performed By: #### [id number] ####[facility] [place] [address], [place] Glucose [Mass/Vol] 240 mg/dL High 70-100 [facility] Comment on above: Performed By: #### 8 5499 ####[facility] [place] [address], [place] Glucose [Mass/Vol] 126 mg/dL High 70-100 [facility] Comment on above: Performed By: #### 8 5499 ####[facility] [place] [address], [place] Glucose [Mass/Vol] 178 mg/dL High 70-100 [facility] Comment on above: Performed By: #### 8 5499 ####[facility] [place] [address], [place] Glucose [Mass/Vol] 195 mg/dL High 70-100 [facility] Comment on above: Performed By: #### 8 5499 ####[facility] [place] [address], [place] Glucose [Mass/Vol] 113 mg/dL High 70-100 [facility] Comment on above: Performed By: #### 8 5499 ####[facility] [place] [address], [place] Glucose [Mass/Vol] 118 mg/dL High 70-100 [facility] Comment on above: Performed By: #### 8 5499 ####[facility] [place] [address], [place] PORTABLE CHEST 1 VIEWon 08 PORTABLE CHEST 1 VIEW Normal [facility] Comment on above: Order Comment: Check Chest Tube Position, ON ARRIVAL TO CVU PROTHROMBIN TIMEon INR Coag (PPP) [Relative time] 1.20 {INR} High 0.91-1.16 [facility] Comment on above: Order Comment: No: D o not add to previous draw Result Comment: [facility] P RECOMMENDED INR FOR WARFARIN THERAPY CONDITION INRPROPHYLAXIS OF VENOUS THROMBOSIS 2-3(HIGH-RISK SURGERY)TREATMENT OF VENOUS THROMBOSIS 2-3TREATMENT OF PULMONARY EMBOLISM 2-3PREVENTION OF SYSTEMIC EMBOLISM: 2-3 ACUTE MYOCARDIAL INFARCTION TISSUE HEART VALVES VALVULAR HEART DISEASE ATRIAL FIBRILLATION RECURRENT SYSTEMIC EMBOLISMMECHANICAL HEART VALVE 2.5-3.5 FROM: ORAL ANTICOAGULANTS. MECHANISM OF ACTION, CLINICALEFFECTIVENESS, AND OPTIMAL THERAPEUTIC RANGE. [id number];108:231S-246S. Performed By: #### 5 6101, [id number] ####[facility] [place] [address], [facility] PT Coag (PPP) [Time] 15.2 s High 12.3-14.8 [facility] Comment on above: Order Comment: No: D o not add to previous draw Result Comment: ALL RESULTS MUST BE INTERPRETED WITH RESPECT TO BLOOD DRAWING ARTIFACTOR DILUTION ERROR OF ANTICOAGULANT AT THE TIME OF SAMPLING. Performed By: #### 5 6101, [id number] ####[facility] [place] [address], [facility] INR Coag (PPP) [Relative time] 1.23 {INR} High 0.91-1.16 [facility] Comment on above: Result Comment: [facility] P RECOMMENDED INR FOR WARFARIN THERAPY CONDITION INRPROPHYLAXIS OF VENOUS THROMBOSIS 2-3(HIGH-RISK SURGERY)TREATMENT OF VENOUS THROMBOSIS 2-3TREATMENT OF PULMONARY EMBOLISM 2-3PREVENTION OF SYSTEMIC EMBOLISM: 2-3 ACUTE MYOCARDIAL INFARCTION TISSUE HEART VALVES VALVULAR HEART DISEASE ATRIAL FIBRILLATION RECURRENT SYSTEMIC EMBOLISMMECHANICAL HEART VALVE 2.5-3.5 FROM: ORAL ANTICOAGULANTS. MECHANISM OF ACTION, CLINICALEFFECTIVENESS, AND OPTIMAL THERAPEUTIC RANGE. [id number];108:231S-246S. Performed By: #### 5 7307, [id number], [id number] ####[facility] PT Coag (PPP) [Time] 15.5 s High 12.3-14.8 [facility] Comment on above: Result Comment: ALL RESULTS MUST BE INTERPRETED WITH RESPECT TO BLOOD DRAWING ARTIFACTOR DILUTION ERROR OF ANTICOAGULANT AT THE TIME OF SAMPLING. Performed By: #### 5 7307, [id number], [id number] ####[facility] [facility] INR Coag (PPP) [Relative time] 1.05 {INR} Normal 0.91-1.16 [facility] Comment on above: Order Comment: No: D [...] OF ACTION, CLINICALEFFECTIVENESS, AND OPTIMAL THERAPEUTIC RANGE. [id number];108:231S-246S. Performed By: #### 5 6101 ####[facility] PT Coag (PPP) [Time] 13.7 s Normal 12.3-14.8 [facility] Comment on above: Order Comment: No: D o not add to previous draw Result Comment: ALL RESULTS MUST BE INTERPRETED WITH RESPECT TO BLOOD DRAWING ARTIFACTOR DILUTION ERROR OF ANTICOAGULANT AT THE TIME OF SAMPLING. Performed By: #### 5 6101 ####[facility] TROPONIN-Ion 04-08-2021 Troponin I.cardiac [Mass/Vol] 0.34 ng/mL Critically high 0.00-0.04 [facility] Comment on above: Order Comment: No: D o not add to previous draw Result Comment: M-TR OPCINDA INITIAL CRITICAL HIGH; RESPUN AND RETESTEDM-CRITICAL RESULT(S) REVIEWED, CALLED TO AND READ BACK BY Kleber TRAN at 2223.REFERENCE RANGES: 0.00 - 0.04 ng/ml NORMAL 0.05 - 0.50 ng/ml INDETERMINATE > 0.50 ng/ml CONSISTENT WITH AN M.I. Performed By: #### 3 8840 ####[facility] [place] [address], [facility] POC GLUCOSE LABon 04-07-2021 Glucose [Mass/Vol] 121 mg/dL High 70-100 [facility] Comment on above: Performed By: #### 8 5499 ####[facility] [place] [address], [facility] Glucose [Mass/Vol] 165 mg/dL High 70-100 [facility] Comment on above: Performed By: #### 8 5499 ####[facility] [place] [address], [facility] Glucose [Mass/Vol] 109 mg/dL High 70-100 [facility] Comment on above: Performed By: #### 8 5499 ####[facility] [facility].[address] POC SARS COV2 ANTIGEN NEGATI VEon 04-07-2021 POC SARS COV2 ANTIGEN NEG Negative Normal NEGATIVE [facility] Comment on above: Result Comment: Nega tive [...] of clinicalsigns and symptoms consistent with COVID-19.The [email or web address] COVID-19 Ag Card is a lateral flow immunoassay intended forthe qualitative detection of nucleocapsid protein antigen zledLFCM-XoM-0 in direct nasal swabs from individuals within [...] Performed By: #### 3 1977 ####[facility] [place] [address], [facility] Pulmonary Functionon 021 Pulmonary Function Normal The [facility] RBC'S 4 UNITSon 04-07-2021 CROSSMATCH INTERP 1 COMP Normal [facility] Comment on above: Performed By: #### 8 6004 ####[facility] [place] [address], [facility] CROSSMATCH INTERP 2 COMP Normal [facility] Comment on above: Performed By: #### 8 6004 ####[facility] [place] [address], [facility] CROSSMATCH INTERP 3 COMP Normal [facility] Comment on above: Performed By: #### 8 6004 ####[facility] [place] [address], [facility] CROSSMATCH INTERP 4 COMP Normal [facility] Comment on above: Performed By: #### 8 6004 ####[facility] [place] [address], [facility] PRODUCT CODE 1 E0336 Normal [facility] Comment on above: Performed By: #### 8 6004 ####[facility] [place] [address], [place] PRODUCT CODE 2 E0336 Normal [facility] Comment on above: Performed By: #### 8 6004 ####[facility] [place] [address], [place] PRODUCT CODE 3 E0336 Normal [facility] Comment on above: Performed By: #### 8 6004 ####[facility] [place] [address], [place] PRODUCT CODE 4 E0336 Normal [facility] Comment on above: Performed By: #### 8 6004 ####[facility] [facility], [place] [address] PRODUCT STATUS 1 RE Normal [facility] Comment on above: Result Comment: Resu lt changed by IF on 04/08/2021 12:37. The previous value was XM.Result changed by IF on 04/08/2021 16:53. The previous value was IS.Result changed by IF on 04/11/2021 11:14. The previous value was XM. Performed By: #### 8 6004 ####[facility] [place] [address], [facility] PRODUCT STATUS 2 RE Normal [facility] Comment on above: Result Comment: Resu lt changed by IF on 04/08/2021 12:37. The previous value was XM.Result changed by IF on 04/08/2021 16:53. The previous value was IS.Result changed by IF on 04/11/2021 11:14. The previous value was XM. Performed By: #### 8 6004 ####[place] [address] [place] [address], [facility] PRODUCT STATUS 3 RE Normal [facility] Comment on above: Result Comment: Resu lt changed by IF on 04/08/2021 12:37. The previous value was XM.Result changed by IF on 04/08/2021 16:53. The previous value was IS.Result changed by IF on 04/11/2021 11:14. The previous value was XM. Performed By: #### 8 6004 ####[place] [address] [place] [address], [facility] PRODUCT STATUS 4 RE Normal [facility] Comment on above: Result Comment: Resu lt changed by IF on 04/08/2021 12:37. The previous value was XM.Result changed by IF on 04/08/2021 16:53. The previous value was IS.Result changed by IF on 04/11/2021 11:14. The previous value was XM. Performed By: #### 8 6004 ####[facility] [facility], [place] [address] [place] [address] UNIT ABO 1 O Normal [facility] Comment on above: Performed By: #### 8 6004 ####[facility] [facility], [place] [address] [place] [address] UNIT ABO 2 O Normal [facility] Comment on above: Performed By: #### 8 6004 ####[facility] [facility], [place] [address] [place] [address] UNIT ABO 3 O Normal [facility] Comment on above: Performed By: #### 8 6004 ####[facility] [facility], [place] [address] [place] [address] UNIT ABO 4 O Normal [facility] Comment on above: Performed By: #### 8 6004 ####[facility] [facility].[address] UNIT ID 1 [id number] Normal The [facility] Comment on above: Performed By: #### 8 6004 ####[facility] [facility].[address] UNIT ID 2 [id number] Normal The [facility] Comment on above: Performed By: #### 8 6004 ####[facility] [facility], [place] [address] [place] [address] UNIT ID 3 [id number] Normal The [facility] Comment on above: Performed By: #### 8 6004 ####[facility] [place] [address], [facility] UNIT ID 4 [id number] Normal The [facility] Comment on above: Performed By: #### 8 6004 ####[facility] [facility], [place] [address] UNIT RH 1 Positive Normal [facility] Comment on above: Performed By: #### 8 6004 ####[facility] [place] [address], [facility] UNIT RH 2 Positive Normal [facility] Comment on above: Performed By: #### 8 6004 ####[facility] [place] [address], [facility] UNIT RH 3 Positive Normal [facility] Comment on above: Performed By: #### 8 6004 ####[facility] [place] [address], [facility] UNIT RH 4 Positive Normal [facility] Comment on above: Performed By: #### 8 6004 ####[facility] [place] [address], [facility] TYPE AND SCREENon 04-07-2021 ABO INTERPRETATION O Normal [facility] Comment on above: Performed By: #### 6 2586 ####[facility] [place] [address], [facility] RH INTERPRETATION Positive Normal [facility] Comment on above: Performed By: #### 6 2586 ####[facility] [place] [address], [facility] *MRSA/MSSA DNA NASALon 04-06 *MRSA/MSSA DNA NASAL Clinical Report: (D) Specimen: NASAL SWAB Collected: 04/06/2021 12:43 Status: Final Last Updated: 04/06/2021 16:01 MSSA DNA (Final) Negative MRSA DNA (Final) Negative Normal [facility] Comment on above: Performed By: #### 3 1595 ####[facility] [place] [address], [facility] BASIC METABOLIC PANELon 08- Calcium [Mass/Vol] 8.9 mg/dL Normal 8.6-10.3 [facility] Comment on above: Order Comment: No: D o not add to previous draw Performed By: #### 1 0, 23917 ####[facility] [place] [address], [facility] Chloride [Moles/Vol] 103 mmol/L Normal 98-107 [facility] Comment on above: Order Comment: No: D o not add to previous draw Performed By: #### 1 0, 47246 ####[facility] [place] [address], [place] CO2 [Moles/Vol] 26 mmol/L Normal 21-31 The [facility] Comment on above: Order Comment: No: D o not add to previous draw Performed By: #### 1 0, 00076 ####[facility] [place] [address], [facility] Creatinine [Mass/Vol] 0.78 mg/dL Normal 0.70-1.30 [facility] Comment on above: Order Comment: No: D o not add to previous draw Performed By: #### 1 69, 69478 ####[facility] [place] [address], [facility] GFR/1.73 sq M.predicted among blacks MDRD (S/P/Bld) [Vol rate/Area] mL/min/{1.73_m2} Normal >60 [facility] Comment on above: Order Comment: No: D o not add to previous draw Result Comment: Calc ulation may not be valid for patients over 70 years Performed By: #### 1 69, 68743 ####[facility] [place] [address], [facility] GFR/1.73 sq M.predicted among non-blacks MDRD (S/P/Bld) [Vol rate/Area] mL/min/{1.73_m2} Normal >60 [facility] Comment on above: Order Comment: No: D o not add to previous draw Result Comment: Calc ulation may not be valid for patients over 70 years Performed By: #### 1 69, 35010 ####[facility] [facility].[address] Glucose [Mass/Vol] 101 mg/dL High 70-100 [facility] Comment on above: Order Comment: No: D o not add to previous draw Performed By: #### 1 69, 62204 ####[facility] [facility].[address] Potassium [Moles/Vol] 4.1 mmol/L Normal 3.5-5.1 [facility] Comment on above: Order Comment: No: D o not add to previous draw Performed By: #### 1 69, 61004 ####[place] [address] [facility].[address] Sodium [Moles/Vol] 134 mmol/L Low 136-145 [facility] Comment on above: Order Comment: No: D o not add to previous draw Performed By: #### 1 69, 18184 ####[place] [address] [facility].[address] Urea nitrogen [Mass/Vol] 20 mg/dL Normal 7-25 [facility] Comment on above: Order Comment: No: D o not add to previous draw Performed By: #### 1 69, 61320 ####[place] [address] [facility].[address] CBC COMPLETE BLOOD COUNTon 0 8- Erythrocyte distribution width (RBC) [Ratio] 15.3 % High 11.5-15.0 [facility] Comment on above: Order Comment: No: D o not add to previous draw Performed By: #### 5 0608 ####[place] [address] [facility].[address] Hematocrit (Bld) [Volume fraction] 43.0 % Normal 39.0-50.0 [facility] Comment on above: Order Comment: No: D o not add to previous draw Performed By: #### 5 0608 ####[facility] [facility].[address] Hemoglobin (Bld) [Mass/Vol] 14.3 g/dL Normal 13.0-17.0 [facility] Comment on above: Order Comment: No: D o not add to previous draw Performed By: #### 5 0608 ####[facility] MCH (RBC) [Entitic mass] 30.6 pg Normal 27.0-33.0 [facility] Comment on above: Order Comment: No: D o not add to previous draw Performed By: #### 5 0608 ####[facility] MCHC (RBC) [Mass/Vol] 33.3 g/dL Normal 32.0-35.0 [facility] Comment on above: Order Comment: No: D o not add to previous draw Performed By: #### 5 0608 ####[place] [address] [facility].[address] MCV (RBC) [Entitic vol] 92.1 fL Normal 82.0-98.0 [facility] Comment on above: Order Comment: No: D o not add to previous draw Performed By: #### 5 0608 ####[facility] Nucleated RBC/100 WBC (Bld) [Ratio] 0 % Normal 0-0 [facility] Comment on above: Order Comment: No: D o not add to previous draw Performed By: #### 5 0608 ####[place] [address], [facility] PLAT CNT 238 10*3/uL Normal 150-400 [facility] Comment on above: Order Comment: No: D o not add to previous draw Performed By: #### 5 0608 ####[facility] [place] [address], [facility] RBC (Bld) [#/Vol] 4.67 10*6/uL Normal 4.20-5.70 [facility] Comment on above: Order Comment: No: D o not add to previous draw Performed By: #### 5 0608 ####[facility] [place] [address], [place] WBC (Bld) [#/Vol] 6.86 10*3/uL Normal 4.00-10.60 [facility] Comment on above: Order Comment: No: D o not add to previous draw Performed By: #### 5 0608 ####[facility] [place] [address], [facility] MAGNESIUM BLOODon 04-06-2021 Magnesium [Mass/Vol] 2.0 mg/dL Normal 1.9-2.7 [facility] Comment on above: Order Comment: No: D o not add to previous draw Performed By: #### 1 0070, 19065 ####[facility] [place] [address], [facility] POC GLUCOSE LABon 04-06-2021 Glucose [Mass/Vol] 118 mg/dL High 70-100 [facility] Comment on above: Performed By: #### 8 5499 ####[facility] [place] [address], [place] Glucose [Mass/Vol] 108 mg/dL High 70-100 [facility] Comment on above: Performed By: #### 8 5499 ####[facility] [place] [address], [place] Glucose [Mass/Vol] 114 mg/dL High 70-100 [facility] Comment on above: Performed By: #### 8 5499 ####[facility] [place] [address], [facility] Glucose [Mass/Vol] 126 mg/dL High 70-100 [facility] Comment on above: Performed By: #### 8 5499 ####[facility] [place] [address], [facility] URINALYSIS REFLEXon 04-06-20 21 Appearance (U) CLEAR Normal CLEAR [facility] Comment on above: Order Comment: No: D o not add to previous drawCriteria for reflexing a culture was not met. Please call the lab [phone] within 24 hours of collection time if culture is needed Performed By: #### 3 0965 ####[facility] [place] [address], [facility] Bilirubin Ql (U) Negative Normal NEGATIVE [facility] Comment on above: Order Comment: No: D o not add to previous drawCriteria for reflexing a culture was not met. Please call the lab [phone] within 24 hours of collection time if culture is needed Performed By: #### 3 0965 ####[facility] [place] [address], [facility] Color (U) YELLOW Normal YELLOW [facility] Comment on above: Order Comment: No: D o not add to previous drawCriteria for reflexing a culture was not met. Please call the lab [phone] within 24 hours of collection time if culture is needed Performed By: #### 3 0965 ####[facility] [place] [address], [facility] Glucose Ql (U) Negative Normal NEGATIVE [facility] Comment on above: Order Comment: No: D o not add to previous drawCriteria for reflexing a culture was not met. Please call the lab [phone] within 24 hours of collection time if culture is needed Performed By: #### 3 0965 ####[facility] [facility].[address] Hemoglobin Ql (U) Negative Normal NEGATIVE [facility] Comment on above: Order Comment: No: D o not add to previous drawCriteria for reflexing a culture was not met. Please call the lab [phone] within 24 hours of collection time if culture is needed Performed By: #### 3 0965 ####[facility] [place] [address], [facility] KETONE Negative Normal NEGATIVE [facility] Comment on above: Order Comment: No: D o not add to previous drawCriteria for reflexing a culture was not met. Please call the lab [phone] within 24 hours of collection time if culture is needed Performed By: #### 3 0965 ####[facility] [place] [address], [facility] LEUK JESS Negative Normal NEGATIVE [facility] Comment on above: Order Comment: No: D o not add to previous drawCriteria for reflexing a culture was not met. Please call the lab [phone] within 24 hours of collection time if culture is needed Performed By: #### 3 0965 ####[place] [address] MICRO NOT DONE Normal [facility] Comment on above: Order Comment: No: D o not add to previous drawCriteria for reflexing a culture was not met. Please call the lab [phone] within 24 hours of collection time if culture is needed Result Comment: Micr oscopics not performed on urines withnegative chemical reactions unless requested in original order Performed By: #### 3 0965 ####[facility] [place] [address], [facility] Nitrite Ql (U) Negative Normal NEGATIVE [facility] Comment on above: Order Comment: No: D o not add to previous drawCriteria for reflexing a culture was not met. Please call the lab [phone] within 24 hours of collection time if culture is needed Performed By: #### 3 0965 ####[facility] [facility].[address] pH (U) 6.0 [pH] Normal 5.0-8.0 [facility] Comment on above: Order Comment: No: D o not add to previous drawCriteria for reflexing a culture was not met. Please call the lab [phone] within 24 hours of collection time if culture is needed Performed By: #### 3 0965 ####[facility] Protein Ql (U) Negative Normal NEGATIVE [facility] Comment on above: Order Comment: No: D o not add to previous drawCriteria for reflexing a culture was not met. Please call the lab [phone] within 24 hours of collection time if culture is needed Performed By: #### 3 0965 ####[facility] SPEC GRAV 1.019 Normal 1.015-1.020 [facility] Comment on above: Order Comment: No: D o not add to previous drawCriteria for reflexing a culture was not met. Please call the lab [phone] within 24 hours of collection time if culture is needed Performed By: #### 3 0965 ####[facility] Encounters Encounter Date Encounter Type Care Provider Facility Start: 06-05-2023 End: 06-05-2023 ambulatory [facility] Start: 05-18-2023 End: 05-18-2023 ambulatory [facility] Facility:[facility] Start: 01-06-2023 End: 01-06-2023 ambulatory [facility] Start: 10-10-2022 End: 10-10-2022 ambulatory [facility] Start: 09-03-2022 End: 09-03-2022 ambulatory Moshe Garcia Other [facility] Other Start: 09-03-2022 Office outpatient ne w [...] Evaluation and management of inpatient MAL BARNES Facility:[facility] Procedures Date Procedure Procedure Detail Performing Clinician Start: 05-24-2021 Antibody screen MAL BARNES Comment on above: Performed By: #### [id number] ####[facility] [place] [address], [facility] Start: 05-23-2021 EXCISION OF STERNUM, OPEN [...] Performed By: #### [id number] ####[facility] [place], [place] [id number] [place] [address] Start: 05-16-2021 EXCISION OF CHEST SK IN, EXTERNAL APPROACH AKANKSHA UP Start: 05-16-2021 RESPIRATORY VENTILAT ION, LESS THAN 24 CONSECUTIVE HOURS GUDELIA BARNES Start: 05-15-2021 Antibody screen MAL MOLLY Comment on above: Performed By: #### 6 [id number] ####[facility] [place] [address], [facility] Start: 04-07-2021 Antibody screen MAL MOLLY Comment on above: Performed By: #### 6 [id number] ####[facility], [place] [id number] [place] [address] Payers Date Payer Category Payer Private Health Insurance [id number] 1960 Self-pay 1945 Unknown [id number] 2.16.8 [id number] 1945 Unknown [id number] 2.16.84 [id number] 1945 Unknown [id number] 2.16.84 [id number] 1944 Unknown [id number] 2.16.84 [id number] 1944 Unknown [id number] 2.16.84 [id number] 1944 Unknown [id number] 2.16.84 [id number] 1944 Unknown [id number] 2.16.84 [id number] 1944 Unknown [id number] 2.16.84 [id number] 1944 Unknown [id number] 2.16.84 [id number] 1945 Unknown [id number] 2.16.84 [id number] Unknown [id number] 2.16.8 [id number] Social History Date Type Detail Facility Sex Assigned At [facility] Other Clinical Notes 10-11-2020 to 06-05-2023 Note Date & Type Note Facility 06-05-2023 Note [place] [facility] - [facility] Subjective Arianne Mcqueen is a 78 [...] He was resuscitated and admitted to the [facility]. His initial investigation was negative. He was [...] In August 2021 he was admitted to [facility] and then transferred to [facility] due to COVID infection and large pericardial [...] worsening renal funct (more content not included)... [facility] 01-06-2023 Note Cardiovascular Medic ine [facility] SUBJECTIVE Chief Complaint Patient presents with Coronary [...] He was resuscitated and admitted to the [facility]. His initial investigation was negative. He was [...] In August 2021 he was admitted to [facility] and then transferred to [facility] due to COVID infection and large pericardial effusion. He was treated with diuretics. CTA of the chest August 2021 found effusion to be moderate and did not necessitate pericardiocentesis. He has dyspnea on exertion when walking and doing physical activity. No chest pain. He has bilateral leg swelling. He is in NYHA class II-III. He reports that he ran out of LasPlayboox over the past 5 days. Recent testing: [...] normal right-sided pressu (more content not included)... [facility] 01-06-2023 Note Patient here for 3 m o follow up GROVES, CAD, and CHF. He saw Dr. Mayers in October 2022. Denies chest pain. He states his GROVES is improving. Review of Systems Cardiovascular: Positive for dyspnea on exertion. Respiratory: Positive for cough. Skin: Positive for color change and dry skin. All other systems reviewed and are negative. [facility] 10-10-2022 Note Cardiovascular Medic [facility] SUBJECTIVE Chief Complaint Patient presents with Cardiac Stress Test Coronary Artery Disease Shortness of Breath Arianne Mcqueen is a 77 y.o. male here for follow-up. HPI Since last seen, he was admitted to [facility] for PNA and sepsis. He notes [...] He was resuscitated and admitted to the [facility]. His initial investigation was negative. He was [...] In August 2021 he was admitted to [facility] and then transferred to [facility] due to COVID infection and large pericardial effusion. He was treated with diuretics. CTA of the chest August 2021 found effusion to be moderate and did not necessitate pericardiocentesis. He has dyspnea on exertion when walking and doing physical activity. No chest pain. He has bilateral leg swelling. He is in NYHA class II-III. He reports that he ran out of eOriginal over the past 5 days. Recent testing: [...] on his per (more content not included)... [facility] 10-10-2022 Note Patient here for fol low up stress test. He was admitted to [facility] in Jul 2022 for sepsis and pneumonia. Still denies chest pain but gets very winded with exertion. Review of Systems Cardiovascular: Positive for dyspnea on exertion. All other systems reviewed and are negative. [facility] 09-15-2022 Note This report has been cancelled. [facility] 09-15-2022 Note This report has been cancelled. [facility] 09-15-2022 Note This report has been cancelled. [facility] 09-03-2022 Evaluation note Encounter Date Diagnosis Assessment [...] have been reviewed. Hospital notes from the [facility] from his prior admission on 08/18/2022 are [...] years ago and was just admitted to [facility] with pneumonia a couple of weeks ago. [...] as documented in the electronic medical record. [facility] Other 11-21-2022 NoteUT Cardiology - [facility] Subjective Arianne Mcqueen is a 77 [...] He was resuscitated and admitted to the [facility]. His initial investigation was negative. He was [...] In August 2021 he was admitted to [facility] and then transferred to [facility] due to COVID infection and large pericardial effusion. He was treated with diuretics. CTA of the chest August 2021 found effusion to be moderate and did not necessitate pericardiocentesis. He has dyspnea on exertion when walking and doing physical activity. No chest pain. He has bilateral leg swelling. He is in NYHA class II-III. He reports that he ran out of LasPlayboox over the past 5 days. Recent testing: [...] had him stop furosemi (more content not included)...[facility]09-15-2022 NotePROCEDURE: XR HIP RT 2 3V WO PELVIS HISTORY: Pain in right hip joint COMPARISON: XR pelvis 09/15/2021 FINDINGS: BONES:Complete loss of the joint space with [id number] articulation. Large periarticular degenerative osteophytes. No fracture, dislocation, bone lesion. SOFT TISSUES:No visible soft tissue swelling. EFFUSION:None visible. OTHER: Atherosclerotic disease. IMPRESSION: 1. 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 2. No appreciable acute abnormality. Electronically authenticated by: NOREEN KELLY Date: 2022-05-08 10:48[facility]10[facility] NoteThe [facility] 04-23-2021 NoteThe [facility]02-18-2021 NotePatient Outreach ([facility]OV[facility]) ARIANNE MCQUEEN ([id number]) 1945 M Date Time Provider Department 10/11/20 TERRANCE CABALLERO During your visit today, we recorded the following information about you: Allergies As of Date: 10/11/2020 (No Known Allergies) Date Reviewed: 04/21/2020 Reviewed by: Willie Sotelo - Fully Assessed Order(s):SARS-COVID VACCINE 1ST DOSE APPT [[id number]] Order #: [id number] FUTURE Prescriptions as of 10/11/2020 Sig: TRAZODONE [...] [I73.9] 08/19/2012 Letter Text Encounter Status:Closed by [facility], Lily [employer] on 10/15/20[facility] History general Narrative - Reported* Type Description Date Medical History diabetes mallitus Medical History HTN Surgical History knee replacement 2010 [facility] Other Summary Purpose Family History No Family [...] section and content) DATE CREATED AUTHOR 09/01/2021 [facility] DATE CREATED AUTHOR AUTHOR'S ORGANIZ ATION 04/06/2022 [facility] DATE CREATED AUTHOR AUTHOR'S ORGANIZ ATION 11/04/2022 [facility] DATE CREATED AUTHOR AUTHOR'S ORGANIZ ATION 05/25/2023 [facility] DATE CREATED AUTHOR AUTHOR'S ORGANIZ ATION 06/07/2023 [facility] REASON FOR VISIT (unrecogniz ed section and [...] BE BASED ON THE PRIMARY CLINICAL RECORDS. [facility] [employer] provides no warranty or guarantee of the accuracy or completeness of information in this document.
--- NOTE | 2023-08-31 13:53 | VEIN_ITS ---
Patient Name: ARIANNE MCQUEEN MR#: [id number] : 1945 Exam Date: 08/31/2023 Ordering Doctor: DR AUSTIN BANKS M.D. RADIOLOGY REPORT PROCEDURE: VC EXT VENOUS LT LIMITED COMPARISON: VC EXT VENOUS LT LIMITED, 08/04/2023. VC EXT VENOUS LT LIMITED, 06/18/2023. INDICATIONS: Phlebitis of superficial veins of lt lower extremity I80.02 TECHNIQUE: Lower extremity dutta scale and Duplex Doppler evaluation of the deep venous system from the inguinal ligament through the calf veins. FINDINGS: REGION: Left lower extremity. THROMBI: Negative for DVT. Varithena induced thrombus visualized at prox/med calf, dist/med calf, and dist/med thigh. COMPRESSIBILITY: Non-compressible segments corresponding to thrombus FLOW: Areas of no flow corresponding to thrombus OTHER: Multiple varicose veins remain. Patent varicose vein at mid/med calf 4.5mm with 2.4s reflux. Patent varicose vein dist/med calf 4.3mm with 2.4s reflux. CONCLUSION: Post ablation occlusion treated varicose veins. No deep vein thrombus Dictated by: Austin Banks MD on 08/31/2023 at 15:05 Approved by: Austin Banks MD on 08/31/2023 at 15:05
--- NOTE | 2023-08-31 13:53 | VEIN_ITS ---
Patient Name: ARIANNE MCQUEEN MR#: [id number] : 1945 Exam Date: 08/31/2023 Ordering Doctor: DR AUSTIN BANKS M.D. RADIOLOGY REPORT PROCEDURE: FACILITY EST LMTD VEIN CENTER - OFFICE VISIT FOLLOW UP COMPARISON: [facility] EST LMTD, 08/13/2023. [facility] EST LMTD, 08/04/2023. PROGRESS NOTES: The patient reports no significant problems following micro foam chemical ablation of incompetent varicose veins. The patient did not require oral analgesics. The patient has not worn his compression stockings. Patient has not exercised as directed. Physical exam demonstrates significant reduction in skin thickening edema and erythema from the initial presenting exam. Several areas of healing venous stasis ulceration identified along the right mid medial to posterior calf. Thrombosed varicose veins can be palpated Review of the ultrasound performed the same day demonstrates occlusive thrombus extending throughout the treated varicose veins. No deep vein thrombus. The patient expressed a desire to proceed with treatment of incompetent varicose veins. Precertification is required as he has new insurance. VEIN/[facility] EST LMTD IMPRESSION: 1. Successful ablation of treated varicose veins 2. Persistent bilateral incompetent varicose veins. PLAN: Micro foam chemical ablation incompetent varicose veins Nurse notes, history and physical were reviewed and confirmed, see attached forms. The nurse was present throughout the physical exam and consultation Dictated by: Austin Banks MD on 08/31/2023 at 15:17 Approved by: Austin Banks MD on 08/31/2023 at 15:19
== END 2023-08-31 13:52 | disposition home or self-care (01) ==
PROVIDERS: PCP Radiology Diagnostic Radiology; Visit Provider Radiology Diagnostic Radiology
DX: I80.02 Phlebitis and thrombophlebitis of superficial vessels of left lower extremity (principal)
CPT/HCPCS: 93971; G0463

== ENCOUNTER 2023-09-24 13:42 | Outpatient (OUT) | payer OTHER, SELFPAY ==
--- NOTE | 2023-09-24 13:44 | VEIN_ITS ---
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 Ultrasound-guided microfoam chemical ablation with Varithenaregistered 2. Intraoperative ultrasound guidance Physician: Km De Jesus M.D. Anesthesia: None Indications for Procedure: 78 year old male. Symptoms including lower extremity pain, swelling, dilated bulging veins, chronic wounds and skin changes for many years despite conservative medical therapy including medical compression stockings, exercise and analgesics. Prior procedures include endovenous laser ablation and microfoam chemical ablation. Multiple incompetent varicosities of the right leg. Duplex scan showed reflux and enlarged diameters up to 5 mm. The patient underwent informed consent including management options where the complications of infection, bleeding, pain, and skin injury were discussed. Particular attention was spent discussing thrombus extension and deep vein thrombosis as well as the possibility of pulmonary embolus and treatment with oral or injectable blood thinners. Procedure: The patient walked to the procedure room. All applicable staff donned appropriate apparel. A procedure timeout was performed to confirm correct patient, correct extremity, correct procedure, and correct room set-up including presence of all applicable supplies, devices, and drugs. A duplex ultrasound, performed by myself confirmed the location and incompetence of branch saphenous varicosities and their course was marked on the skin together with the dilated tributaries. The extent of treatment of the vein and the associated varicosities was determined through ultrasound mapping. The skin was prepped and then punctured with a butterfly needle and advanced under ultrasound guidance. The Varithenaregistered canister was activated and the canister was primed and purged as required in the instructions for use. Varithenaregistered was drawn into a sterile syringe. Varithenaregistered was slowly administered at 0.5-1.0 cc/second with close observation by ultrasound of its course in the vessels. Total volume utilized was: 15 mL (8 mL into a 5 mm varicosity mid anterior lower leg; 6 mL into a 5 mm varicosity mid lateral lower leg). Following administration of Varithenaregistered the leg was elevated and the patient was asked to repeatedly dorsiflex the ankle to limit flow of Varithenaregistered into perforating veins. Once appropriate spasm had been confirmed in the treated veins, the vascular catheter was removed from the leg and light pressure was applied over the puncture site for hemostasis. The common femoral and deep superficial veins were then evaluated for flow and compressibility prior to dressing placement. The lower extremity was kept elevated at 45 degrees above the horizontal and cording material was applied over the saphenous segments and tributaries to allow for eccentric compression over the target vessels including the targeted saphenous vein(s). A multilayer dressing was applied consisting of foam pads, coban and thigh-high 20-30 mm Hg compression elastic support hose were placed on the patient. The leg was lowered only after compression had been applied and the patient was immediately ambulatory. The patient ambulated 10 minutes under supervision and was without apparent concerns at time of release. Post-care instructions include advising patient to keep post-treatment bandages in place and dry for 48 hours, avoid extended periods of inactivity, avoid heavy exercise for one week, wear compression stockings on the treated leg continuously for two weeks, to walk daily for 10 minutes over the next month. The patient was instructed to take an anti-inflammatory medicine as needed and to follow up for color duplex scan of the Saphenous veins, the treated branch saphenous varicosities, the adjacent deep veins, and additional treatment within 7 days. PERSONNEL: Rogers Morgan RN Electronically authenticated by: KM DE JESUS Date: 09/24/2023 15:56
== END 2023-09-24 13:43 | disposition home or self-care (01) ==
LOC: VC 13:42
PROVIDERS: PCP Radiology Diagnostic Radiology; Visit Provider Radiology Diagnostic Radiology
DX: I83.813 Varicose veins of bilateral lower extremities with pain (principal)
CPT/HCPCS: 36466

== ENCOUNTER 2023-09-30 13:15 | Outpatient (OUT) | payer OTHER, SELFPAY ==
--- NOTE | 2023-09-30 13:16 | VEIN_ITS ---
Patient Name: ARIANNE MCQUEEN MR#: [id number] : 1945 Exam Date: 09/30/2023 Ordering Doctor: DR AUSTIN BANKS M.D. RADIOLOGY REPORT PROCEDURE: VC EXT VENOUS RT LMTD COMPARISON: VC EXT VENOUS RT LMTD, 08/13/2023. VC EXT VENOUS RT LMTD, 07/15/2023. INDICATIONS: Phlebitis of superficial veins of right lower extremity I80.01 TECHNIQUE: Lower extremity dutta scale and Duplex Doppler evaluation of the deep venous system from the inguinal ligament through the calf veins. FINDINGS: REGION: Right lower extremity. THROMBI: Negative for DVT. Chemically induced thrombus in multiple varicose veins in lower right leg. COMPRESSIBILITY: Non-compressible segments corresponding to thrombus FLOW: Areas of no flow corresponding to thrombus OTHER: Fluid collection medial proximal lower leg/knee measures 4.9 x 2.4 x 1.4 cm. Patent varicose vein medial right knee measures 5.7 mm. Varicose vein mid anterior lower leg measures 4.1 mm. Varicose vein mid medial lower leg measures 4.3 mm. CONCLUSION: Post ablation occlusion of the treated right leg varicose veins with no deep vein thrombus New area of heterogeneous fluid corresponding to the patient's trauma, hematoma is favored Dictated by: Austin Banks MD on 09/30/2023 at 14:05 Approved by: Austin Banks MD on 09/30/2023 at 14:06
--- NOTE | 2023-09-30 13:16 | VEIN_ITS ---
Patient Name: ARIANNE MCQUEEN MR#: [id number] : 1945 Exam Date: 09/30/2023 Ordering Doctor: DR AUSTIN BANKS M.D. RADIOLOGY REPORT PROCEDURE: FACILITY EST LMTD VEIN CENTER - OFFICE VISIT FOLLOW UP COMPARISON: [facility] EST LMTD, 08/31/2023. FACILITY EST LMTD, 08/13/2023. PROGRESS NOTES: The patient reports no significant problems following micro foam chemical ablation of the right leg. The patient wears his compression stockings intermittently. Patient has difficulty exercising. Multiple residual filling ulcerations are noted on the right leg, significantly improved. Persistent skin thickening and subcutaneous edema also improved from his initial exam significantly. Review of the ultrasound performed the same day demonstrates occlusive thrombus extending throughout the treated varicose veins. Multiple bilateral residual varicose veins are observed. No deep vein thrombus The patient would like to proceed with treatment. VEIN/[facility] EST LMTD IMPRESSION: 1. Successful ablation of treated right leg incompetent varicose veins 2. Persistent bilateral incompetent varicose veins. PLAN: Micro foam chemical ablation incompetent varicose veins Nurse notes, history and physical were reviewed and confirmed, see attached forms. The nurse was present throughout the physical exam and consultation Dictated by: Austin Banks MD on 09/30/2023 at 14:41 Approved by: Austin Banks MD on 09/30/2023 at 14:43
== END 2023-09-30 13:16 | disposition home or self-care (01) ==
LOC: VC 13:15
PROVIDERS: PCP Radiology Diagnostic Radiology; Visit Provider Radiology Diagnostic Radiology
DX: I80.01 Phlebitis and thrombophlebitis of superficial vessels of right lower extremity (principal)
CPT/HCPCS: 93971; G0463

== ENCOUNTER 2023-10-07 13:46 | Outpatient (OUT) | payer OTHER, SELFPAY ==
--- NOTE | 2023-10-07 | VEIN_ITS ---
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 Ultrasound-guided microfoam chemical ablation with Varithenaregistered 2. Intraoperative ultrasound guidance Physician: Km De Jesus M.D. Anesthesia: None Indications for Procedure: 78 year old male. Symptoms including [lower extremity pain, swelling, bulging dilated veins, marked edema and chronic skin changes, wounds for many years despite conservative medical therapy including medical compression stockings, exercise and analgesics. Prior procedures include endovenous laser ablation and microfoam chemical ablation. Multiple incompetent varicosities of the left leg. Duplex scan showed reflux and enlarged diameters up to 5 mm. The patient underwent informed consent including management options where the complications of infection, bleeding, pain, and skin injury were discussed. Particular attention was spent discussing thrombus extension and deep vein thrombosis as well as the possibility of pulmonary embolus and treatment with oral or injectable blood thinners. Procedure: The patient walked to the procedure room. All applicable staff donned appropriate apparel. A procedure timeout was performed to confirm correct patient, correct extremity, correct procedure, and correct room set-up including presence of all applicable supplies, devices, and drugs. A duplex ultrasound, performed by myself confirmed the location and incompetence of branch saphenous varicosities and their course was marked on the skin together with the dilated tributaries. The extent of treatment of the vein and the associated varicosities was determined through ultrasound mapping. The skin was prepped and then punctured with a butterfly needle and advanced under ultrasound guidance. The Varithenaregistered canister was activated and the canister was primed and purged as required in the instructions for use. Varithenaregistered was drawn into a sterile syringe. Varithenaregistered was slowly administered at 0.5-1.0 cc/second with close observation by ultrasound of its course in the vessels. Total volume utilized was: 15 mL (8 mL into a 5 mm varicosity distal anterior lower leg; 4 mL into a 4 mm varicosity distal anterior upper leg; 3 mL into a 4 mm varicosity anterior lateral distal lower leg). Following administration of Varithenaregistered the leg was elevated and the patient was asked to repeatedly dorsiflex the ankle to limit flow of Varithenaregistered into perforating veins. Once appropriate spasm had been confirmed in the treated veins, the vascular catheter was removed from the leg and light pressure was applied over the puncture site for hemostasis. The common femoral and deep superficial veins were then evaluated for flow and compressibility prior to dressing placement. The lower extremity was kept elevated at 45 degrees above the horizontal and cording material was applied over the saphenous segments and tributaries to allow for eccentric compression over the target vessels including the targeted saphenous vein(s). A multilayer dressing was applied consisting of foam pads, coban and thigh-high 20-30 mm Hg compression elastic support hose were placed on the patient. The leg was lowered only after compression had been applied and the patient was immediately ambulatory. The patient ambulated 10 minutes under supervision and was without apparent concerns at time of release. Post-care instructions include advising patient to keep post-treatment bandages in place and dry for 48 hours, avoid extended periods of inactivity, avoid heavy exercise for one week, wear compression stockings on the treated leg continuously for two weeks, to walk daily for 10 minutes over the next month. The patient was instructed to take an anti-inflammatory medicine as needed and to follow up for color duplex scan of the Saphenous veins, the treated branch saphenous varicosities, the adjacent deep veins, and additional treatment within 7 days. PERSONNEL: Rogers Morgan RN Electronically authenticated by: KM DE JESUS Date: 10/07/2023 15:02
== END 2023-10-07 13:47 | disposition home or self-care (01) ==
LOC: VC 13:46
PROVIDERS: PCP Radiology Diagnostic Radiology; Visit Provider Radiology Diagnostic Radiology
DX: I83.813 Varicose veins of bilateral lower extremities with pain (principal)
CPT/HCPCS: 36466

== ENCOUNTER 2023-10-12 13:45 | Outpatient (OUT) | payer OTHER, SELFPAY ==
--- NOTE | 2023-10-12 13:47 | VEIN_ITS ---
Patient Name: ARIANNE MCQUEEN MR#: [id number] : 1945 Exam Date: 10/12/2023 Ordering Doctor: DR JOHANA MAGANA M.D. RADIOLOGY REPORT PROCEDURE: [facility] - OFFICE VISIT FOLLOW UP [facility] PROGRESS NOTES: The patient reports improvement in leg symptoms. There has been interval reduction in varicosities. The patient has followed our recommendations to walk 20-30 minutes once or twice per day since the procedure. Physical exam demonstrates decrease in varicosities of the leg. Persistent varicosities are identified along the legs bilaterally. Review of the ultrasound performed the same day demonstrates occlusive thrombus extending throughout the treated vein(s), see separate report, consistent with a successful ablation. No thrombus extending into or beyond the saphenofemoral junction. The patient expressed a desire to proceed with treatment of remaining incompetent varicosities. The patient was informed that treatment was a process and would require several procedures/sessions. VEIN/[facility] EST TD IMPRESSION: 1. Successful ablation of the left leg treated branch saphenous vein(s). 2. Persistent but improving bilateral lower extremity varicose veins and leg symptoms. PLAN: Microfoam chemical ablation of right leg incompetent branch saphenous varicosities. Nurse notes, history and physical were reviewed and confirmed, see attached forms. The nurse was present throughout the physical exam and consultation Dictated by: Km De Jesus M.D. on 10/12/2023 at 14:59 Approved by: Km De Jesus M.D. on 10/12/2023 at 15:00
--- NOTE | 2023-10-12 13:47 | VEIN_ITS ---
Patient Name: ARIANNE MCQUEEN MR#: [id number] : 1945 Exam Date: 10/12/2023 Ordering Doctor: DR JOHANA MAGANA M.D. RADIOLOGY REPORT PROCEDURE: VC EXT VENOUS LT LIMITED COMPARISON: VC EXT VENOUS LT LIMITED, 08/31/2023. INDICATIONS: Phlebitis of superficial veins of lt lower extremity I80.02 TECHNIQUE: Lower extremity dutta scale and Duplex Doppler evaluation of the deep venous system from the inguinal ligament through the calf veins. FINDINGS: REGION: Left lower extremity. THROMBI: Negative for DVT. Chemically induced thrombus in multiple varicose veins in left leg. COMPRESSIBILITY: Non-compressible segments corresponding to thrombus FLOW: Areas of no flow corresponding to thrombus OTHER: Patent varicose vein mid medial lower leg measures 4.1 mm. Varicose vein proximal anterior lower leg measures 3.6mm. Varicose vein proximal medial lowwer leg measures 4.3 mm. CONCLUSION: 1. Successful post ablation occlusion of left leg treated branch saphenous varicosities. Dictated by: Km De Jesus M.D. on 10/12/2023 at 14:59 Approved by: Km De Jesus M.D. on 10/12/2023 at 14:59
== END 2023-10-12 13:46 | disposition home or self-care (01) ==
LOC: VC 13:46
PROVIDERS: PCP Radiology Diagnostic Radiology; Visit Provider Radiology Diagnostic Radiology
DX: I80.02 Phlebitis and thrombophlebitis of superficial vessels of left lower extremity (principal)
CPT/HCPCS: 93971; G0463

== ENCOUNTER 2023-10-19 12:46 | Outpatient (OUT) | payer OTHER, SELFPAY ==
--- NOTE | 2023-10-19 12:47 | VEIN_ITS ---
[address] [address] Patient Name: ARIANNE MCQUEEN MRN: [id number] date: 1945 Sex: M Assigned Patient Location: Current Patient Location: Accession/Order Number: [id number] Exam Date: 10/19/2023 12:51 Report Date: 10/19/2023 13:48 At the request of: JOHANA MAGANA Procedure: VC INJ Foam Sclerosant WUS ALMOND BLANCHER HAND PROCEDURE: VC INJ Foam Sclerosant WUS ALMOND BLANCHER HAND COMPARISON: None. 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 Ultrasound-guided microfoam chemical ablation with Varithenaregistered 2. Intraoperative ultrasound guidance Anesthesia: None Indications for Procedure: 78-year-old male who presents with a long history of lower extremity pain extensive subcutaneous swelling culminating in numerous venous stasis ulcerations. The patient failed conservative medical therapy including medical compression stockings, exercise and analgesics. Prior procedures include . Multiple incompetent varicosities of the right leg. Duplex scan showed reflux and enlarged diameters up to 6 mm. The patient underwent informed consent including management options where the complications of infection, bleeding, pain, and skin injury were discussed. Particular attention was spent discussing thrombus extension and deep vein thrombosis as well as the possibility of pulmonary embolus and treatment with oral or injectable blood thinners. Procedure: The patient walked to the procedure room. All applicable staff donned appropriate apparel. A procedure timeout was performed to confirm correct patient, correct extremity, correct procedure, and correct room set-up including presence of all applicable supplies, devices, and drugs. A duplex ultrasound, performed by myself confirmed the location and incompetence of branch saphenous varicosities and their course was marked on the skin together with the dilated tributaries. The extent of treatment of the vein and the associated varicosities was determined through ultrasound mapping. The skin was prepped and then punctured with a butterfly needle and advanced under ultrasound guidance. The Varithenaregistered canister was activated and the canister was primed and purged as required in the instructions for use. Varithenaregistered was drawn into a sterile syringe. The following injections were made: 8 cc injected into a 6 mm varicose vein right distal anterior lower leg 7 cc injected into 5 mm varicose vein right distal lateral lower leg Varithenaregistered was slowly administered at 0.5-1.0 cc/second with close observation by ultrasound of its course in the vessels. Total volume utilized was: 15 cc. Following administration of Varithenaregistered the leg was elevated and the patient was asked to repeatedly dorsiflex the ankle to limit flow of Varithenaregistered into perforating veins. Once appropriate spasm had been confirmed in the treated veins, the vascular catheter was removed from the leg and light pressure was applied over the puncture site for hemostasis. The common femoral and deep superficial veins were then evaluated for flow and compressibility prior to dressing placement. The lower extremity was kept elevated at 45 degrees above the horizontal and cording material was applied over the saphenous segments and tributaries to allow for eccentric compression over the target vessels including the targeted saphenous vein(s). A multilayer dressing was applied consisting of foam pads, coban and thigh-high 20-30 mm Hg compression elastic support hose were placed on the patient. The leg was lowered only after compression had been applied and the patient was immediately ambulatory. The patient ambulated 10 minutes under supervision and was without apparent concerns at time of release. Post-care instructions include advising patient to keep post-treatment bandages in place and dry for 48 hours, avoid extended periods of inactivity, avoid heavy exercise for one week, wear compression stockings on the treated leg continuously for two weeks, to walk daily for 10 minutes over the next month. The patient was instructed to take an anti-inflammatory medicine as needed and to follow up for color duplex scan of the Saphenous veins, the treated branch saphenous varicosities, the adjacent deep veins, and additional treatment within 7 days. PERSONNEL: Rogers Morgan RN Electronically authenticated by: JOHANA MAGANA Date: 10/19/2023 13:48
== END 2023-10-19 12:47 | disposition home or self-care (01) ==
LOC: VC 12:46
PROVIDERS: PCP Radiology Diagnostic Radiology; Visit Provider Radiology Diagnostic Radiology
DX: I83.813 Varicose veins of bilateral lower extremities with pain (principal)
CPT/HCPCS: 36466

== ENCOUNTER 2023-10-26 14:27 | Outpatient (OUT) | payer OTHER, SELFPAY ==
--- NOTE | 2023-10-26 14:30 | VEIN_ITS ---
Patient Name: ARIANNE MCQUEEN MR#: [id number] : 1945 Exam Date: 10/26/2023 Ordering Doctor: DR AUSTIN BANKS M.D. RADIOLOGY REPORT PROCEDURE: [facility] EST [facility] - OFFICE VISIT FOLLOW UP COMPARISON: [facility] EST LMTD, 10/12/2023. [facility] EST LMTD, 09/30/2023. PROGRESS NOTES: The patient reports no significant problems following micro chemical ablation of right leg incompetent varicose veins. The patient is unable to wear his compression stockings wraps due to his hip and back pain, he cannot put them on. The patient did not require oral analgesics Physical exam demonstrates mild right and marked left improvement from his initial presenting exam with decrease in swelling, erythema and skin thickening. The patient's right leg swelling has significantly increased from prior exams with multiple areas of skin seeping and some erythema suggestive of early cellulitis. At this point treatment for his veins is complete. In light of a suspected early cellulitis and skin seeping and subcutaneous edema, the patient was referred to the [facility] wound [place] with a follow-up appointment on October 27, 2023 Review of the ultrasound performed the same day demonstrates occlusive thrombus extending throughout the treated varicose veins. Few scattered varicose veins remain period extensive right leg subcutaneous edema. Patient's treatment plan is now complete. The patient was asked to return in 12 months, sooner if necessary.. VEIN/[facility] EST LMTD IMPRESSION: 1. Successful ablation of incompetent right leg varicose veins 2. Persistent right leg subcutaneous edema with multiple ulcerations and possible early cellulitis. PLAN: 1. Urgent referral to the [facility] wound Center, the patient is to be seen October 27, 2023 2. Follow-up for veins in 12 months Nurse notes, history and physical were reviewed and confirmed, see attached forms. The nurse was present throughout the physical exam and consultation Dictated by: Austin Banks MD on 10/26/2023 at 15:38 Approved by: Austin Banks MD on 10/26/2023 at 15:41
--- NOTE | 2023-10-26 14:30 | VEIN_ITS ---
Patient Name: ARIANNE MCQUEEN MR#: [id number] : 1945 Exam Date: 10/26/2023 Ordering Doctor: DR AUSTIN BANKS M.D. RADIOLOGY REPORT PROCEDURE: VC EXT VENOUS RT LMTD COMPARISON: VC EXT VENOUS RT LMTD, 09/30/2023. VC EXT VENOUS RT LMTD, 08/13/2023. INDICATIONS: I80.01 Phlebitis of superficial veins of rt lower extremity TECHNIQUE: Lower extremity dutta scale and Duplex Doppler evaluation of the deep venous system from the inguinal ligament through the calf veins. FINDINGS: REGION: Right lower extremity. THROMBI: Negative for DVT. Chemically induced thrombus in multiple varicose veins. COMPRESSIBILITY: Non-compressible segments corresponding to thrombus FLOW: Areas of no flow corresponding to thrombus OTHER: Multiple patent varicose veins remain. Largest is medial right knee and measures 5.2 mm. CONCLUSION: Post ablation occlusion of treated right leg varicose veins. Dictated by: Austin Banks MD on 10/26/2023 at 14:50 Approved by: Austin Banks MD on 10/26/2023 at 14:51
== END 2023-10-26 14:28 | disposition home or self-care (01) ==
LOC: VC 14:27
PROVIDERS: PCP Radiology Diagnostic Radiology; Visit Provider Radiology Diagnostic Radiology
DX: I80.01 Phlebitis and thrombophlebitis of superficial vessels of right lower extremity (principal)
CPT/HCPCS: 93971; G0463

== ENCOUNTER 2023-10-27 15:38 | Outpatient (OUT) | payer OTHER, SELFPAY | END 2023-10-27 15:39 | disposition home or self-care (01) | LOC: WC 15:38 | PROVIDERS: PCP Nurse Practitioner; Visit Provider Podiatrist Foot & Ankle Surgery | DX: L98.8 Other specified disorders of the skin and subcutaneous tissue (principal); R60.1 Generalized edema | CPT/HCPCS: G0463 ==

== ENCOUNTER 2023-11-04 13:46 | Outpatient (OUT) | payer OTHER, SELFPAY ==
--- NOTE | 2023-11-04 15:09 | CA_ITS ---
The [facility] Test Date: 2023-11-04 Pat Name: ARIANNE MCQUEEN Department: Room: - Gender: Male Preform Plate Maker: Genevieve Torres : 1945 Requested By: 2013 Order Number: [id number] Reading MD: JULIA OSULLIVAN Interpretive Statements Biphasic doppler waveforms PVR waveforms with normal upstroke, amplitude and dicrotic notch Right: - significant pressure gradient between the thigh and calf cuff - normal SILVIA Left: - significant pressure gradient between the thigh and calf cuff - normal SILVIA Impression: - elevated indices (B/L thigh) due to calcified, noncompressible arterial castañeda, which may underestimate the degree of arterial disease - normal arterial evaluation of the lower extremities without hemodynamic impairment of the B/L lower extremities at rest (right SILVIA 1.12, left SILVIA 1.11) Electronically Signed On 11-05-2023 7:02:16 EDT by JULIA OSULLIVAN
== END 2023-11-04 13:47 | disposition home or self-care (01) ==
LOC: CARD 13:49
PROVIDERS: PCP Nurse Practitioner; Visit Provider Podiatrist Foot & Ankle Surgery
DX: R09.89 Other specified symptoms and signs involving the circulatory and respiratory systems (principal)
CPT/HCPCS: 93923

== ENCOUNTER 2023-11-16 15:50 | Outpatient (OUT) | payer OTHER, SELFPAY | END 2023-11-16 15:51 | disposition home or self-care (01) | LOC: WC 15:50 | PROVIDERS: PCP Nurse Practitioner; Visit Provider Physician Assistant | DX: L98.8 Other specified disorders of the skin and subcutaneous tissue (principal) | CPT/HCPCS: G0463 ==

== ENCOUNTER 2023-12-17 09:23 | Outpatient (OUT) | payer OTHER, SELFPAY ==
[2023-12-17 11:25] LABS: Estimated Average Glucose 111 mg/dL; Glycohemoglobin A1C 5.5 % (4.5-6.2)
[2023-12-17 11:33] LABS: Anion Gap 11.5; Calcium 8.6 mg/dL (8.5-10.1); Carbon Dioxide 28.1 mmol/L (21.0-32.0); Chloride 104 mmol/L (98-107); Estimated GFR (African America >60 (>=60); Estimated GFR (Non-African Ame 55 (>=60); Glucose 68 mg/dL (74-106); Potassium 4.6 mmol/L (3.5-5.1); Sodium 139 mmol/L (136-145)
== END 2023-12-17 09:24 | disposition home or self-care (01) ==
LOC: LAB 09:24
PROVIDERS: PCP Nurse Practitioner; Visit Provider Nurse Practitioner
DX: I11.0 Hypertensive heart disease with heart failure (principal); I50.41 Acute combined systolic (congestive) and diastolic (congestive) heart failure; E11.9 Type 2 diabetes mellitus without complications; I25.10 Atherosclerotic heart disease of native coronary artery without angina pectoris
CPT/HCPCS: 36415; 80048; 83036; 83880

== ENCOUNTER 2023-12-17 11:43 | Outpatient (REF) | payer OTHER, SELFPAY | END 2023-12-17 11:44 | disposition home or self-care (01) | LOC: LAB 11:43 | PROVIDERS: PCP Nurse Practitioner; Visit Provider Nurse Practitioner Family | DX: I50.41 Acute combined systolic (congestive) and diastolic (congestive) heart failure (principal) | CPT/HCPCS: 36415; 83880 ==

== ENCOUNTER 2023-12-21 16:26 | Outpatient (OUT) | payer OTHER, SELFPAY | END 2023-12-21 16:27 | disposition home or self-care (01) | LOC: WC 16:26 | PROVIDERS: PCP Nurse Practitioner; Visit Provider Physician Assistant | DX: L98.8 Other specified disorders of the skin and subcutaneous tissue (principal); R60.1 Generalized edema; R60.9 Edema, unspecified | CPT/HCPCS: G0463 ==

== ENCOUNTER 2024-01-05 12:44 | Outpatient (OUT) | payer OTHER, SELFPAY ==
--- NOTE | 2024-01-05 13:00 | CA_ITS ---
Patient Name: ARIANNE MCQUEEN MR#: [id number] : 1945 Exam Date: 01/05/2024 Ordering Doctor: ARIELLA GALLEGO CNP ECHOCARDIOGRAM REPORT PROCEDURE: CA ECHO DOPPLER COMPLETE INDICATIONS: Diastolic heart failure, dyspnea on exertion, CABG, ND, COPD, hypertension, diabetes COMPARISON: None. DESCRIPTION: COMPLETE ECHOCARDIOGRAM Real-time transthoracic echocardiography with 2D, M-mode, spectral and color flow Doppler performed. QUALITY: Technical quality was adequate. 70 , 312#, BSA 2.52 m2, BP 124/76 LEFT VENTRICLE: Normal chamber size. Normal left ventricular wall thickness. Normal systolic function. LV EF: Normal left ventricular ejection fraction, (>55%). DIASTOLIC: Diastolic function is indeterminate. ATRIAL SEPTUM: LEFT ATRIUM: Moderate dilatation. RIGHT ATRIUM: Mild dilatation. RIGHT VENTRICLE: Normal chamber size. Normal right ventricular systolic function. TRICUSPID VALVE: Normal mobility and thickness. No stenosis with no regurgitation. Unable to assess right-sided pressures due to lack of measurable tricuspid regurgitation. MITRAL VALVE: Normal mobility and thickness. No evidence of mitral valve stenosis. There is no mitral annular calcification. No mitral regurgitation. AORTIC VALVE: Normal trileaflet appearance. Thickened aortic valve. Normal leaflet mobility. No evidence of aortic valve stenosis. No aortic regurgitation. AORTIC ROOT: Normal diameter and appearance. Ascending aorta is normal in size. PULMONIC VALVE: Not well visualized. No stenosis. Trivial regurgitation. PERICARDIUM: No evidence of pericardial effusion. IVC: Not well visualized. PLEURA: CONCLUSION: 1. Normal ventricular systolic function. LVEF is 55-60%. 2. Mild to moderate biatrial dilatation. 3. No significant valvular dysfunction. 4. Unable to assess right-sided pressures due to lack of measurable tricuspid regurgitation. Adult Echocardiography Procedure Report Left Ventricle LVEDD (3.7 - 5.6 cm): 5.62 cm LVESD (2.2 - 4.0 cm): 3.62 cm LVIVS thickness (0.6 - 1.2 cm): 0.88 cm LVPW thickness (0.5 - 1.0 cm): 0.85 cm e': 0.06 m/s E - e': 9.19 LVOT Max Gradient: 1.53 mm[Hg] LVOT Area (cm2): 0.62 m/s Peak Velocity (LVOT): 0.62 m/s Mean Velocity (LVOT): 0.43 m/s LVOT Diameter 2.39 cm Left Atrium LA Volume Index (2D A2C): 42.76 ml/m2 Left Atrium Systolic Dimension: 4.72 cm Mitral Valve MV E to A Ratio: 0.69 Mitral Valve A-Wave Peak Velocity: 0.82 m/s Mitral Valve E-Wave Peak Velocity: 0.56 m/s Right Ventricle Aorta AO Root Diam: 3.75 cm Ascending Ao Diam: 2.79 cm Aortic Valve AoV Area (Peak Seng): 3.69 cm2, 3.69 cm2 AoV Area (VTI): 3.93 cm2, 3.93 cm2 Peak Velocity(Antegrade Flow): 0.75 m/s Peak Gradient(Antegrade Flow): 2.25 mm[Hg] Mean Velocity(Antegrade Flow): 0.51 m/s Mean Gradient(Antegrade Flow): 1.19 mm[Hg] Velocity Time Integral: 15.42 cm Tricuspid Valve Pulmonic Valve Mean Gradient: 2.01 mm[Hg] Mean Velocity: 0.66 m/s Peak Velocity: 0.96 m/s, 0.95 m/s Peak Gradient: 3.59 mm[Hg], 3.65 mm[Hg] Right Atrium Right Atrium Systolic Pressure: 53.90 ml, 53.90 ml Dictated by: Hunter Hearn M.D. on 01/07/2024 at 08:23 Approved by: Hunter Hearn M.D. on 01/07/2024 at 08:32
== END 2024-01-05 12:45 | disposition home or self-care (01) ==
LOC: CARD 12:44
PROVIDERS: PCP Nurse Practitioner; Visit Provider Nurse Practitioner Family
DX: I50.32 Chronic diastolic (congestive) heart failure (principal); R06.09 Other forms of dyspnea
CPT/HCPCS: 93306

== ENCOUNTER 2024-03-17 07:48 | Outpatient (OUT) | payer OTHER, SELFPAY ==
--- OUTSIDE RECORDS SUMMARY | 2024-03-17 07:54 | XMS_ITS | CCD ---
Author Organization [facility] CliniSyne Care Team Providers Care Right Of Way Man Name Role Phone MAL BARNES Primary Care Unavailable PAYROBIN Referring Unavailable MASROOR, GUDELIA Admitting Unavailable MASROOR, GUDELIA Attending Unavailable AKANKSHA UP Surgeon Unavailable IN Procedure Practitioner Unavailab le IN Procedure Practitioner Unavailab le MOLLY, GUDELIA Surgeon Unavailable Moshe Garcia Unavailable ARIELLA GALLEGO Admitting Unavailable ARIELLA GALLEGO Attending Unavailable MOLLY, DR MENEZES Primary Care Unavailable ARIELLA GALLEGO Consulting Unavailable MOUKADEENA, DR DOMINIQUE Admitting Unavailable MOUKARBEL, DR DOMINIQUE Attending Unavailable MOLLY, DR MENEZES Primary Care Unavailable MOUKARBEL, DR DOMINIQUE Consulting Unavailable MOUKARBEL, DR DOMINIQUE Admitting Unavailable MOUKARBEL, DR DOMINIQUE Attending Unavailable MOLLY, DR MENEZES Primary Care Unavailable MOUKARBEL, DR DOMINIQUE Consulting Unavailable ARIELLA GALLEGO Admitting Unavailable ARIELLA GALLEGO Attending Unavailable MOLLY, DR MENEZES Primary Care Unavailable RANTOUL, DR MENEZES Primary Care Unavailable FAWWAHailee, CUBA H Admitting Unavailable FAOTONIEL, CUBA H Attending Unavailable ROBIN, DR NOREEN Oneill Consulting Unavailable JESSICA ., DR TODD Consulting Unavailable MIS, ESTUARDO Consulting Unavailable FAWWAD, CUBA H Consulting Unavailable HOUSE, DR MENEZES Admitting Unavailable HOUSE, DR MENEZES Attending Unavailable RANTOUL, DR MENEZES Primary Care Unavailable MOLLY, DR MENEZES Consulting Unavailable ROBIN, DR NOREEN Oneill Consulting Unavailable MOUKARBEL, DR DOMINIQUE Admitting Unavailable MOUKARBEL, DR DOMINIQUE Attending Unavailable HOUSE, DR MENEZES Primary Care Unavailable MOUKARBEL, DR DOMINIQUE Consulting Unavailable MOUKARBEL, DR DOMINIQUE Admitting Unavailable MOUKARBEL, DR DOMINIQUE Attending Unavailable HOUSE, DR MENEZES Primary Care Unavailable SCHER[place], DR JOHANA Alvarado Consulting Unavailable MOUKARBEL, DR DOMINIQUE Consulting Unavailable MOUKARBEL, DR DOMINIQUE Admitting Unavailable MOUKARBEL, DR DOMINIQUE Attending Unavailable RANTOUL, DR MENEZES Primary Care Unavailable MARTIN, DR DOMINIQUE Consulting Unavailable Mal Barnes Primary Care Unavailable Lisha Ortega Attending Unavailable Lisha Ortega Admitting Unavailable CATINA SALAZAR Attending Unavailable ARIELLA GALLEGO Attending Unavailable ARIELLA GALLEGO Attending Unavailable AIDEN NEELY Attending Unavailable AIDEN NEELY Attending Unavailable AIDEN NEELY Attending Unavailable Medications Current Medications Medication Drug [...] Onset: 3 Chronic Congestive heart failure; nonhypertensive (11 sources) Chronic diastolic (congestive) heart failure; Translations: [Acute on chronic diastolic (congestive) heart failure] Onset: 2 Chronic Coronary atherosclerosis and other heart disease (6 sources) Atherosclerotic heart disease of nondalton coronary artery without angina pectoris; Translations: [Atherosclerotic heart disease of nondalton coronary artery with other forms of angina pectoris] Onset: 2 Chronic Diabetes mellitus with complications (1 source) Type [...] Onset: 2 Chronic Other aftercare (1 source) [facility]FP (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; Translations: [CORRECTION CURRENT USE OF ASPIRIN] Onset: 3 Episodic Other aftercare (1 source) [facility] (current) use of 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/antiplate lets; Translations: [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 ARTIST APPRENTICE ANTITHROMBOT/ANTIPLATLETS ] Onset: 3 Episodic Other aftercare (1 source) 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 therapy; Translations: [OTH CORRECTION CURRENT DRUG THERAPY] Onset: 3 Episodic Other aftercare (1 source) long term (current) use of oral hypoglycemic drugs; Translations: [CORRECTION USE ORAL HYPOGLYCEMIC DX] Onset: 3 Episodic Other circulatory disease (1 source) Personal history of sudden cardiac arrest; Translations: [PERSONAL HISTORY SUDDEN CARD ARREST] Onset: 3 Episodic Other connective tissue disease (1 source) History of total knee arthroplasty; Translations: [Presence of right artificial knee joint] Chronic Other lower respiratory disease (5 sources) Shortness of breath; Translations: [SHORTNESS OF BREATH] Onset: 2 Episodic Other lower respiratory disease (2 sources) Other forms of dyspnea; Translations: [Other forms of dyspnea] Onset: 4 Episodic Other nutritional; endocrine; and metabolic disorders (1 [...] Classification Problem Date Documented Da te Episodic/Chronic Coronary atherosclerosis and other heart disease (3 sources) Presence of aortocoronary bypass graft; Translations: [PRESENCE AORTOCORONARY BYPASS GRAFT] Onset: 05-03-2022 Episodic Other non-traumatic joint disorders (4 sources) [...] Value Interpretation Reference Range Facility Office Visiton 03-09-2024 Follow-up visit [id number] Luis M Mcqueen 1945 M Date Provider Department Center 03/09/2024 ARIELLA GRAVES SHILPI Santiago Family History Problem Relation Age of Onset Coronary artery disease Mother Family Status - Relation Status Age at Mother Level of Service:76158 IN OFFICE/OUTPATIENT ESTABLISHED MOD MDM 30 MIN Reason for Visit and Comments: Follow-up [052959] - 3 month follow up [facility] Orders Onlyon 03-09-2024 Orders Only [id number] Luis M Mcqueen 1945 M Date Provider Department Center 03/09/2024 LIBRADO CALDERON SHILPI Santiago Family History Problem Relation Age of Onset Coronary artery disease Mother Family Status - Relation Status Age at Mother [facility] 36on 01-02-2024 35 BP is looking good. Continue to hold amlodipine. Thanks [facility] 37on 12-17-2023 37 *Hold amlodipine *We will call you with a plan regarding your water pill. *Continue to check your blood pressure. Write down your readings. We will call you in 2 weeks for your readings. [facility] Office Visiton 12-17-2023 Follow-up visit [id number] Luis M Mcqueen 1945 M Date Provider Department Center 12/17/2023 ARIELLA GRAVES SHILPI [facility] Family History Problem Relation Age of Onset Coronary artery disease Mother Family Status - Relation Status Age at Mother Level of Service:25649 IN OFFICE/OUTPATIENT ESTABLISHED MOD MDM 30 MIN Reason for Visit and Comments: Coronary Artery Disease [187] Hypertension [730761] [facility] Office Visiton 06-05-2023 Follow-up visit [id number] Luis M Mcqueen 1945 M Date Provider Department Center 06/05/2023 CATINA ROBERTS SHILPI Santiago Family History Problem Relation Age of Onset Coronary artery disease Mother Family Status - Relation Status Age at Mother Level of Service:27217 IN OFFICE/OUTPATIENT ESTABLISHED LOW MDM 20-29 MIN Reason for Visit and Comments: Follow-up [356920] Coronary Artery Disease [187] Congestive Heart Failure [127] [facility] BNPon 08-20-2022 Natriuretic peptide B (Bld) [Mass/Vol] 1748.0 pg/mL Normal <=1,800.0 [facility] Comment on above: Performed By: #### P OCGLUC #### [facility] [address] [address] [address] Deidre Tijerina CBC AUTO DIFFon 08-20-2022 BASO # 0.0 103/ul Normal 0.0-0.1 [facility] Comment on above: Performed By: #### C BC #### [facility] [address] [address] [address] Deidre Tijerina Basophils/100 WBC (Bld) 0.1 % Critically low 0.2-2.0 [facility] Comment on above: Performed By: #### C BC #### [facility] [address] [address] [address] Deidre Tijerina EO # 0.0 103/ul Normal 0.0-0.7 [facility] Comment on above: Performed By: #### C BC #### [facility] [address] [address] [address] Deidre Tijerina Eosinophils/100 WBC (Bld) 0.0 % Critically low 0.9-7.0 [facility] Comment on above: Performed By: #### C BC #### [facility] [address] [place] [address] Dr. Deidre Tijerina Erythrocyte distribution width (RBC) [Ratio] 13.6 % Normal 11.0-15.0 [facility] Comment on above: Performed By: #### C BC #### [facility] [address] [place] [address] Dr. Deidre Tijerina Hematocrit (Bld) [Volume fraction] 30.1 % Critically low 42.0-54.0 [facility] Comment on above: Performed By: #### C BC #### [facility] [address] [place] [address] Dr. Deidre Tijerina Hemoglobin (Bld) [Mass/Vol] 9.8 g/dL Critically low 14.0-18.0 [facility] Comment on above: Performed By: #### C BC #### [facility] [address] [place] [address] Dr. Deidre Tijerina IG # 0.13 10e3/ul Critically high 0.00-0.03 [facility] Comment on above: Performed By: #### C BC #### [facility] [address] [place] [address] Dr. Deidre Tijerina IG % 1.0 % Critically high 0.0-0.5 [facility] Comment on above: Performed By: #### C BC #### [facility] [address] [place] [address] Dr. eDidre Tijerina LYMPH # 1.2 103/ul Normal 1.2-3.8 [facility] Comment on above: Performed By: #### C BC #### [facility] [address] [address] [address] Deidre Tijerina Lymphocytes/100 WBC (Bld) 8.6 % Critically low 20.5-60.0 [facility] Comment on above: Performed By: #### C BC #### [facility] [address] [address] [address] Deidre Tijerina MANUAL DIFF REQ NO Normal [facility] Comment on above: Performed By: #### C BC #### [facility] [address] [address] [address] Deidre Tijerina MCH (RBC) [Entitic mass] 30.7 pg Normal 25.9-34.0 [facility] Comment on above: Performed By: #### C BC #### [facility] [address] [place] [address] Dr. Deidre Tijerina MCHC (RBC) [Mass/Vol] 32.6 g/dL Normal 29.9-35.2 [facility] Comment on above: Performed By: #### C BC #### [facility] [address] [place] [address] Dr. Deidre Tijerina MCV (RBC) [Entitic vol] 94.4 fL Critically high 80.0-94.0 [facility] Comment on above: Performed By: #### C BC #### [facility] [address] [place] [address] Dr. Deidre Tijerina MONO # 0.8 103/ul Normal 0.3-0.8 [facility] Comment on above: Performed By: #### C BC #### [facility] [address] [place] [address] Dr. Deidre Tijerina Monocytes/100 WBC (Bld) 6.2 % Normal 1.7-12.0 [facility] Comment on above: Performed By: #### C BC #### [facility] [address] [place] [address] Dr. Deidre Tijerina NEUT # 11.3 103/ul Critically high 1.4-6.5 [facility] Comment on above: Performed By: #### C BC #### [facility] [address] [address] [address] Deidre Tijerina Neutrophils/100 WBC (Bld) 84.1 % Critically high 43.0-75.0 [facility] Comment on above: Performed By: #### C BC #### [facility] [address] [place] [address] Dr. Deidre Tijerina Platelet mean volume (Bld) [Entitic vol] 9.3 fL Critically low 9.5-13.5 [facility] Comment on above: Performed By: #### C BC #### [facility] [address] [address] [address] Deidre Tijerina PLT 204 103/ul Normal 150-450 [facility] Comment on above: Performed By: #### C BC #### [facility] [address] [place] [address] Dr. Deidre Tijerina RBC 3.19 106/ul Critically low 4.70-6.10 [facility] Comment on above: Performed By: #### C BC #### [facility] [address] [place] [address] Dr. Deidre Tijerina WBC 13.5 103/ul Critically high 4.0-11.0 [facility] Comment on above: Performed By: #### C BC #### [facility] [address] [place] [address] Dr. Deidre Tijerina POINT OF CARE GLUCOSEon 07-25 Glucose [Mass/Vol] 164 mg/dL Critically high 74-106 [facility] Comment on above: Performed By: #### P OCGLUC #### [facility] [address] [place] [address] Dr. Deidre Tijerina PROF CHEM 8 (BAS METB)on Anion gap [Moles/Vol] 10.5 mmol/L Normal [facility] Comment on above: Performed By: #### P OCGLUC #### [facility] [address] [place] [address] Dr. Deidre Tijerina Calcium [Mass/Vol] 8.1 mg/dL Critically low 8.5-10.1 [facility] Comment on above: Performed By: #### P OCGLUC #### [facility] [address] [address] [address] Deidre Tijerina Chloride [Moles/Vol] 100 mmol/L Normal 98-107 [facility] Comment on above: Performed By: #### P OCGLUC #### [facility] [address] [address] [address] Deidre Tijerina CO2 [Moles/Vol] 24.4 mmol/L Normal 21.0-32.0 [facility] Comment on above: Performed By: #### P OCGLUC #### [facility] [address] [address] [address] Deidre Tijerina Creatinine [Mass/Vol] 1.17 mg/dL Normal 0.70-1.30 [facility] Comment on above: Performed By: #### P OCGLUC #### [facility] [address] [address] [address] Deidre Tijerina EGFR-AF MEXICAN >60 Normal >=60 [facility] Comment on above: Performed By: #### P OCGLUC #### [facility] [address] [address] [address] Deidre Tijerina EGFR-NON AF MEXICAN 60 mL/min/1.73m2 Normal >=60 [facility] Comment on above: Performed By: #### P OCGLUC #### [facility] [address] [address] [address] Deidre Tijerina Glucose [Mass/Vol] 145 mg/dL Critically high 74-106 [facility] Comment on above: Performed By: #### P OCGLUC #### [facility] [address] [address] [address] Deidre Tijerina Potassium [Moles/Vol] 3.9 mmol/L Normal 3.5-5.1 [facility] Comment on above: Performed By: #### P OCGLUC #### [facility] [address] [address] [address] Deidre Tijerina Sodium [Moles/Vol] 131 mmol/L Critically low 136-145 [facility] Comment on above: Performed By: #### P OCGLUC #### [facility] [address] [address] [address] Deidre Tijerina Urea nitrogen [Mass/Vol] 37.0 mg/dL Critically high 7.0-18.0 [facility] Comment on above: Performed By: #### P OCGLUC #### [facility] [address] [address] [address] Deidre Tijerina Urea nitrogen/Creatinine [Mass ratio] 31.6 mg/mg Normal [facility] Comment on above: Performed By: #### P OCGLUC #### [facility] [address] [address] [address] Deidre Tijerina XR CHEST 1 Von [...] are again identified. Electronically authenticated by: ESTUARDO MIS Date: 2022-08-20 13:26 Normal [facility] BNPon 08-19-2022 Natriuretic peptide B (Bld) [Mass/Vol] 955.0 pg/mL Normal <=1,800.0 [facility] Comment on above: Performed By: #### C BC #### [facility] [address] [address] [address] Deidre Tijerina CBC W MANUAL DIFFon 08-19-20 22 ATYPICAL LYMPH # 0.28 103/ul Normal [facility] Comment on above: Performed By: #### P OCGLUC #### [facility] [address] [address] [address] Deidre Tijerina ATYPICAL LYMPH % 2 % Normal [facility] Comment on above: Performed By: #### P OCGLUC #### [facility] [address] [address] [address] Deidre Tijerina BAND # 0.0 103/ul Normal 0.0-0.3 [facility] Comment on above: Performed By: #### P OCGLUC #### [facility] [address] [address] [address] Deidre Tijerina BAND % 0 % Normal 0-5 [facility] Comment on above: Performed By: #### P OCGLUC #### [facility] [address] [address] [address] Deidre Tijerina BASOM # 0.00 103/ul Normal 0.00-0.10 [facility] Comment on above: Performed By: #### P OCGLUC #### [facility] [address] [place] [address] Dr. Deidre Tijerina BASOM % 0.0 % Critically low 0.2-2.0 [facility] Comment on above: Performed By: #### P OCGLUC #### [facility] [address] [place] [address] Dr. Deidre Tijerina BLAST # Normal [facility] Comment on above: Performed By: #### P OCGLUC #### [facility] [address] [place] [address] Dr. Deidre Tijerina BLAST % Normal [facility] Comment on above: Performed By: #### P OCGLUC #### [facility] [address] [place] [address] Dr. Deidre Tijerina CORRECTED WBC Normal 4.0-11.0 [facility] Comment on above: Performed By: #### P OCGLUC #### [facility] [address] [place] [address] Dr. Deidre Tijerina EOS # 0.00 103/ul Normal 0.00-0.70 [facility] Comment on above: Performed By: #### P OCGLUC #### [facility] [address] [place] [address] Dr. Deidre Tijerina EOS% 0.0 % Critically low 0.9-7.0 [facility] Comment on above: Performed By: #### P OCGLUC #### [facility] [address] [place] [address] Dr. Deidre Tijerina HCT 30.4 % Critically low 42.0-54.0 [facility] Comment on above: Performed By: #### P OCGLUC #### [facility] [address] [address] [address] Deidre Tijerina HGB 9.8 g/dl Critically low 14.0-18.0 [facility] Comment on above: Performed By: #### P OCGLUC #### [facility] [address] [address] [address] Deidre Tijerina LYMPHM # 0.43 103/ul Critically low 1.20-3.80 [facility] Comment on above: Performed By: #### P OCGLUC #### [facility] [address] [address] [address] Deidre Tijerina LYMPHM% 3.0 % Critically low 20.5-60.0 [facility] Comment on above: Performed By: #### P OCGLUC #### [facility] [address] [address] [address] Deidre Tijerina MCH 30.8 pg Normal 25.9-34.0 [facility] Comment on above: Performed By: #### P OCGLUC #### [facility] [address] [address] [address] Deidre Tijerina MCHC 32.2 g/dl Normal 29.9-35.2 [facility] Comment on above: Performed By: #### P OCGLUC #### [facility] [address] [address] [address] Deidre Tijerina MCV 95.6 fL Critically high 80.0-94.0 [facility] Comment on above: Performed By: #### P OCGLUC #### [facility] [address] [address] [address] Deidre Tijerina METAMYELOCYTE # Normal [facility] Comment on above: Performed By: #### P OCGLUC #### [facility] [address] [address] [address] Deidre Tijerina METAMYELOCYTE % Normal [facility] Comment on above: Performed By: #### P OCGLUC #### [facility] [address] [address] [address] Deidre Tijerina MONOM# 0.57 103/ul Normal 0.30-0.80 [facility] Comment on above: Performed By: #### P OCGLUC #### [facility] [address] [place] [address] Dr. Deidre Tijerina MONOM% 4.0 % Normal 1.7-12.0 [facility] Comment on above: Performed By: #### P OCGLUC #### [facility] [address] [place] [address] Dr. Deidre Tijerina MPV 9.1 fL Critically low 9.5-13.5 [facility] Comment on above: Performed By: #### P OCGLUC #### [facility] [address] [place] [address] Dr. Deidre Tijerina MYELOCYTE # Normal [facility] Comment on above: Performed By: #### P OCGLUC #### [facility] [address] [place] [address] Dr. Deidre Tijerina MYELOCYTE % Normal [facility] Comment on above: Performed By: #### P OCGLUC #### [facility] [address] [place] [address] Dr. Deidre Tijerina NRBC Normal [facility] Comment on above: Performed By: #### P OCGLUC #### [facility] [address] [place] [address] Dr. Deidre Tijerina PLT 188 103/ul Normal 150-450 [facility] Comment on above: Performed By: #### P OCGLUC #### [facility] [address] [place] [address] Dr. Deidre Tijerina RBC 3.18 106/ul Critically low 4.70-6.10 [facility] Comment on above: Performed By: #### P OCGLUC #### [facility] [address] [place] [address] Dr. Deidre Tijerina RDW 14.0 % Normal 11.0-15.0 [facility] Comment on above: Performed By: #### P OCGLUC #### [facility] [address] [place] [address] Dr. Deidre Tijerina SEG # 12.92 103/ul Critically high 1.40-6.50 [facility] Comment on above: Performed By: #### P OCGLUC #### [facility] [address] [address] [address] Deidre Tijerina SEG % 91.0 % Critically high 43.0-75.0 [facility] Comment on above: Performed By: #### P OCGLUC #### [facility] [address] [address] [address] Deidre Tijerina WBC 14.2 103/ul Critically high 4.0-11.0 [facility] Comment on above: Performed By: #### P OCGLUC #### [facility] [address] [address] [address] Deidre Tijerina POINT OF CARE GLUCOSEon 07-25 Glucose [Mass/Vol] 305 mg/dL Critically high 74-106 [facility] Comment on above: Performed By: #### P OCGLUC #### [facility] [address] [address] [address] Deidre Tijerina Glucose [Mass/Vol] 181 mg/dL Critically high -106 [facility] Comment on above: Performed By: #### C BC #### [facility] [address] [place] [address] Dr. Deidre Tijerina Glucose [Mass/Vol] 342 mg/dL Critically high 74-106 [facility] Comment on above: Performed By: #### P OCGLUC #### [facility] [address] [address] [address] Deidre Tijerina Glucose [Mass/Vol] 192 mg/dL Critically high -106 [facility] Comment on above: Performed By: #### P OCGLUC #### [facility] [address] [address] [address] Deidre Tijerina PROF CHEM 8 (BAS METB)on Anion gap [Moles/Vol] 10.3 mmol/L Normal [facility] Comment on above: Performed By: #### B MP, BNP #### [facility] [address] [address] [address] Deidre Tijerina Calcium [Mass/Vol] 7.9 mg/dL Critically low 8.5-10.1 [facility] Comment on above: Performed By: #### B MP, BNP #### [facility] [address] [address] [address] Deidre Tijerina Chloride [Moles/Vol] 100 mmol/L Normal 98-107 [facility] Comment on above: Performed By: #### B MP, BNP #### [facility] [address] [place] [address] Dr. Deidre Tijerina CO2 [Moles/Vol] 26.6 mmol/L Normal 21.0-32.0 [facility] Comment on above: Performed By: #### B MP, BNP #### [facility] [address] [place] [address] Dr. Deidre Tijerina Creatinine [Mass/Vol] 1.29 mg/dL Normal 0.70-1.30 [facility] Comment on above: Performed By: #### B MP, BNP #### [facility] [address] [place] [address] Dr. Deidre Tijerina EGFR-AF MEXICAN >60 Normal >=60 [facility] Comment on above: Performed By: #### B MP, BNP #### [facility] [address] [place] [address] Dr. Deidre Tijerina EGFR-NON AF MEXICAN 54 mL/min/1.73m2 Critically low >=60 [facility] Comment on above: Performed By: #### B MP, BNP #### [facility] [address] [place] [address] Dr. Deidre Tijerina Glucose [Mass/Vol] 190 mg/dL Critically high 74-106 [facility] Comment on above: Performed By: #### B MP, BNP #### [facility] [address] [place] [address] Dr. Deidre Tijerina Potassium [Moles/Vol] 3.9 mmol/L Normal 3.5-5.1 [facility] Comment on above: Performed By: #### B MP, BNP #### [facility] [address] [address] [address] Deidre Tijerina Sodium [Moles/Vol] 133 mmol/L Critically low 136-145 [facility] Comment on above: Performed By: #### B MP, BNP #### [facility] [address] [address] [address] Deidre Tijerina Urea nitrogen [Mass/Vol] 35.0 mg/dL Critically high 7.0-18.0 [facility] Comment on above: Performed By: #### B MP, BNP #### [facility] [address] [address] [address] Deidre Tijerina Urea nitrogen/Creatinine [Mass ratio] 27.1 mg/mg Normal [facility] Comment on above: Performed By: #### B MP, BNP #### [facility] [address] [address] [address] Deidre Tijerina BILIRUBIN CONJUGATED (DIRECT )on 08-18-2022 BILI, CONJUGATED 0.4 mg/dL Critically high 0.0-0.2 [facility] Comment on above: Performed By: #### P OCGLUC #### [facility] [address] [address] [address] Deidre Tijerina BLOOD GASES BTYon 08-18-2022 02 MODE BIPAP Normal [facility] Comment on above: Performed By: #### P OCGLUC #### [facility] [address] [place] [address] Dr. Deidre Tijerina ALLENS TEST Positive Normal [facility] Comment on above: Performed By: #### P OCGLUC #### [facility] [address] [address] [address] Deidre Tijerina Base excess Calc (Bld) [Moles/Vol] 1.0 mmol/L Normal -2.0-2.0 [facility] Comment on above: Performed By: #### P OCGLUC #### [facility] [address] [place] [address] Dr. Deidre Tijerina BIPAP PRESSURE 16/8 Normal [facility] Comment on above: Performed By: #### P OCGLUC #### [facility] [address] [address] [address] Deidre Tijerina CPAP [facility] Comment on above: Performed By: #### P OCGLUC #### [facility] [address] [address] [address] Deidre Tijerina FIO2 35.00 % Normal [facility] Comment on above: Performed By: #### P OCGLUC #### [facility] [address] [address] [address] Deidre Tijerina HCO3 (Bld) [Moles/Vol] 25.0 mmol/L Normal 22.0-26.0 [facility] Comment on above: Performed By: #### P OCGLUC #### [facility] [address] [place] [address] Dr[facility] above: Performed By: #### P OCGLUC #### [facility] [address] [address] [address] Deidre Tijerina MINUTE VOLUME 21 L [facility] Comment on above: Performed By: #### P OCGLUC #### [facility] [address] [place] [address] Dr. Deidre Tijerina Oxygen (Bld) [Partial pressure] 83.4 mm[Hg] Normal 80.0-100.0 [facility] Comment on above: Performed By: #### P OCGLUC #### [facility] [address] [place] [address] Dr. Deidre Tijerina Oxygen saturation in Blood 97.5 % Normal 95.0-100.0 [facility] Comment on above: Performed By: #### P OCGLUC #### [facility] [address] [place] [address] Dr. Deidre Tijerina PCO2 36.2 mmHg Normal 35.0-45.0 [facility] Comment on above: Performed By: #### P OCGLUC #### [facility] [address] [place] [address] Dr. Deidre Tijerina PEEP 8 [facility] Comment on above: Performed By: #### P OCGLUC #### [facility] [address] [address] [address] Deidre Tijerina pH (Bld) 7.440 [pH] Normal 7.350-7.450 [facility] Comment on above: Performed By: #### P OCGLUC #### [facility] [address] [place] [address] Dr. Deidre Tijerina PIP 17 [facility] Comment on above: Performed By: #### P OCGLUC #### [facility] [address] [place] [address] Dr. Deidre Tijerina PS 8 [facility] Comment on above: Performed By: #### P OCGLUC #### [facility] [address] [place] [address] Dr. Deidre Tijerina PUNCTURE SITE RR Normal [facility] Comment on above: Performed By: #### P OCGLUC #### [facility] [address] [place] [address] Dr. Deidre Tijerina RATE 14 bpm [facility] Comment on above: Performed By: #### P OCGLUC #### [facility] [address] [place] [address] Dr. Deidre Tijerina VENT MODE [facility] Comment on above: Performed By: #### P OCGLUC #### [facility] [address] [place] [address] Dr. Deidre Tijerina VT 945 ML [facility] Comment on above: Performed By: #### P OCGLUC #### [facility] [address] [place] [address] Dr. Deidre Tijerina BNPon 08-18-2022 Natriuretic peptide B (Bld) [Mass/Vol] 2561.0 pg/mL Critically high <=1,800.0 [facility] Comment on above: Performed By: #### P OCGLUC #### [facility] [address] [place] [address] Dr. Deidre Tijerina CBC W MANUAL DIFFon 08-18-20 22 ANISOCYTOSIS 1+ [facility] Comment on above: Performed By: #### C BCMAN #### [facility] [address] [place] [address] Dr. Deidre Tijerina ATYPICAL LYMPH # Normal [facility] Comment on above: Performed By: #### C BCMAN #### [facility] [address] [address] [address] Deidre Tijerina ATYPICAL LYMPH % Normal [facility] Comment on above: Performed By: #### C BCMAN #### [facility] [address] [address] [address] Deidre Tijerina BAND # 1.2 103/ul Critically high 0.0-0.3 [facility] Comment on above: Performed By: #### C BCMAN #### [facility] [address] [address] [address] Deidre Tijerina BAND % 7 % Critically high 0-5 [facility] Comment on above: Performed By: #### C BCMAN #### [facility] [address] [place] [address] Dr. Deidre Tijerina BASOM # 0.00 103/ul Normal 0.00-0.10 [facility] Comment on above: Performed By: #### C BCNICOLASA #### [facility] [address] [place] [address] Dr. Deidre Tijerina BASOM % 0.0 % Critically low 0.2-2.0 [facility] Comment on above: Performed By: #### C BCMAN #### [facility] [address] [place] [address] Dr. Deidre Tijerina BLAST # Normal [facility] Comment on above: Performed By: #### C BCNICOLASA #### [facility] [address] [place] [address] Dr. Deidre Tijerina BLAST % Normal [facility] Comment on above: Performed By: #### C BCMAN #### [facility] [address] [address] [address] Deidre Tijerina CORRECTED WBC Normal 4.0-11.0 [facility] Comment on above: Performed By: #### C BCMAN #### [facility] [address] [address] [address] Deidre Tijerina EOS # 0.17 103/ul Normal 0.00-0.70 [facility] Comment on above: Performed By: #### C ADALGISA #### [facility] [address] [address] [address] Deidre Tijerina EOS% 1.0 % Normal 0.9-7.0 [facility] Comment on above: Performed By: #### C ADALGISA #### [facility] [address] [address] [address] Deidre Tijerina HCT 34.8 % Critically low 42.0-54.0 [facility] Comment on above: Performed By: #### C ADALGISA #### [facility] [address] [address] [address] Deidre Tijerina HGB 11.5 g/dl Critically low 14.0-18.0 [facility] Comment on above: Performed By: #### C ADALGISA #### [facility] [address] [address] [address] Deidre Tijerina LYMPHM # 1.20 103/ul Normal 1.20-3.80 [facility] Comment on above: Performed By: #### C ADALGISA #### [facility] [address] [address] [address] Deidre Tijerina LYMPHM% 7.0 % Critically low 20.5-60.0 [facility] Comment on above: Performed By: #### C ADALGISA #### [facility] [address] [address] [address] Deidre Tijerina MCH 31.5 pg Normal 25.9-34.0 [facility] Comment on above: Performed By: #### C ADALGISA #### [facility] [address] [address] [address] Deidre Tijerina MCHC 33.0 g/dl Normal 29.9-35.2 [facility] Comment on above: Performed By: #### C ADALGISA #### [facility] [address] [address] [address] Deidre Tijerina MCV 95.3 fL Critically high 80.0-94.0 [facility] Comment on above: Performed By: #### C ADALGISA #### [facility] [address] [place] [address] Dr. Deidre Tijerina METAMYELOCYTE # Normal [facility] Comment on above: Performed By: #### C ADALGISA #### [facility] [address] [place] [address] Dr. Deidre Tijerina METAMYELOCYTE % Normal [facility] Comment on above: Performed By: #### C ADALGISA #### [facility] [address] [place] [address] Dr. Deidre Tijerina MONOM# 1.03 103/ul Critically high 0.30-0.80 [facility] Comment on above: Performed By: #### C ADALGISA #### [facility] [address] [place] [address] Dr. Deidre Tijerina MONOM% 6.0 % Normal 1.7-12.0 [facility] Comment on above: Performed By: #### C ADALGISA #### [facility] [address] [place] [address] Dr. Deidre Tijerina MPV 8.7 fL Critically low 9.5-13.5 [facility] Comment on above: Performed By: #### C ADALGISA #### [facility] [address] [place] [address] Dr. Deidre Tijerina MYELOCYTE # Normal [facility] Comment on above: Performed By: #### C ADALGISA #### [facility] [address] [place] [address] Dr. Deidre Tijerina MYELOCYTE % Normal [facility] Comment on above: Performed By: #### C ADALGISA #### [facility] [address] [place] [address] Dr. Deidre Tijerina NRBC Normal [facility] Comment on above: Performed By: #### C ADALGISA #### [facility] [address] [place] [address] Dr. Deidre Tijerina PLT 212 103/ul Normal 150-450 [facility] Comment on above: Performed By: #### C ADALGISA #### [facility] [address] [place] [address] Dr. Deidre Tijerina RBC 3.65 106/ul Critically low 4.70-6.10 [facility] Comment on above: Performed By: #### C BCMAN #### [facility] [address] [address] [address] Deidre Tijerina RDW 14.0 % Normal 11.0-15.0 [facility] Comment on above: Performed By: #### C BCMAN #### [facility] [address] [address] [address] Deidre Tijerina SEG # 13.59 103/ul Critically high 1.40-6.50 [facility] Comment on above: Performed By: #### C BCMAN #### [facility] [address] [address] [address] Deidre Tijerina SEG % 79.0 % Critically high 43.0-75.0 [facility] Comment on above: Performed By: #### C BCMAN #### [facility] [address] [address] [address] Deidre Tijerina WBC 17.2 103/ul Critically high 4.0-11.0 [facility] Comment on above: Performed By: #### C BCMAN #### [facility] [address] [address] [address] CHEST WO CONon [...] clearing is recommended. Electronically authenticated by: NOREEN ROBIN Date: 2022-08-18 12:12 Normal [facility] CULTURE BLOODon 08-18-2022 Microscopic examination of blood, culture Culture Observations: NO GROWTH AT 5 DAYS. Normal [facility] Comment on above: Performed By: #### C BC #### [facility] [address] [place] [address] Dr. Deidre Tijerina Microscopic examination of blood, culture Culture Observations: NO GROWTH AT 5 DAYS. Normal [facility] Comment on above: Performed By: #### C BC #### [facility] [address] [place] [address] Dr. Deidre Tijerina Covid-19 PCR ([facility])on 07-25 SARS-CoV-2 (COVID-19) RNA ISA+probe Ql (Unsp spec) Not detected Normal NOT DETECTED [facility] Comment on above: Result Comment: When diagnostic [...] for this test is supported by the [employer] and Human Service's declaration that [...] used). Performed By: #### P OCGLUC #### [facility] [address] [place] [address] Dr. Deidre Tijerina ECHO LIMITED STUDYon 022 ECHO LIMITED STUDY Patient: UMM MCQUEEN Exam Date: 08/18/2022 : 1945 Gender:M Ordering : SHAIKH Zay CARRERA . Admission #: [id number] Family : Order #: [id number] CLICK HERE TO VIEW EXAM ECHOCARDIOGRAM REPORT [...] M.D. on 08/26/2022 at 09:00 Normal [facility] INFLUENZA A AND B AGon 08-18 INFLUANEGH SEE BELOW Normal [facility] Comment on above: Result Comment: Nega tive for Flu A protein angiten. Infection due to Flu A cannot be ruled out. Flu A angiten in the sample may be below the detection limit of the test. Performed By: #### P OCGLUC #### [facility] [address] [place] [address] Dr. [facility] Normal [facility] Comment on above: Result Comment: Nega tive for Flu B protein antigen. Infection due to Flu B cannot be ruled out. Flu B antigen in the sample may be below the detection limit of the test. Performed By: #### P OCGLUC #### [facility] [address] [place] [address] Dr. Deidre Tijerina INFLUENZA A AG Negative Normal NEGATIVE SEE COMMENT [facility] Comment on above: Performed By: #### P OCGLUC #### [facility] [address] [place] [address] Dr. Deidre Tijerina INFLUENZA B AG Negative Normal NEGATIVE SEE COMMENT [facility] Comment on above: Performed By: #### P OCGLUC #### [facility] [address] [place] [address] Dr. Deidre Tijerina INTERNAL CONTROLS Within Normal Limits Normal Wi thin Normal Limits [facility] Comment on above: Performed By: #### P OCGLUC #### [facility] [address] [place] [address] Dr. Deidre Tijerina LACTATE/LACTIC ACIDon 2021 Lactate [Moles/Vol] 2.0 mmol/L Critically high 0.4-1.9 [facility] Comment on above: Performed By: #### P OCGLUC #### [facility] [address] [place] [address] Dr. Deidre Tijerina Lactate [Moles/Vol] 2.0 mmol/L Critically high 0.4-1.9 [facility] Comment on above: Performed By: #### P OCGLUC #### [facility] [address] [address] [address] Deidre Tijerina POINT OF CARE GLUCOSEon 07-25 Glucose [Mass/Vol] 228 mg/dL Critically high -106 [facility] Comment on above: Performed By: #### P OCGLUC #### [facility] [address] [address] [address] Deidre Tijerina Glucose [Mass/Vol] 119 mg/dL Critically high 74-106 [facility] Comment on above: Performed By: #### P OCGLUC #### [facility] [address] [address] [address] Deidre Tijerina Glucose [Mass/Vol] 161 mg/dL Critically high -106 [facility] Comment on above: Performed By: #### C BC #### [facility] [address] [place] [address] Dr. Deidre Tijerina PROF 14(COMP METB)on 022 Albumin [Mass/Vol] 2.9 g/dL Critically low 3.4-5.0 [facility] Comment on above: Performed By: #### P OCGLUC #### [facility] [address] [address] [address] Deidre Tijerina Albumin/Globulin [Mass ratio] 0.6 {ratio} [facility] Comment on above: Performed By: #### P OCGLUC #### [facility] [address] [place] [address] Dr. Deidre Tijerina ALP [Catalytic activity/Vol] 71 U/L Normal 46-116 [facility] Comment on above: Performed By: #### P OCGLUC #### [facility] [address] [address] [address] Deidre Tijerina ALT [Catalytic activity/Vol] 13 U/L Critically low 16-63 [facility] Comment on above: Performed By: #### P OCGLUC #### [facility] [address] [address] [address] Deidre Tijerina Anion gap [Moles/Vol] 12.3 mmol/L Normal [facility] Comment on above: Performed By: #### P OCGLUC #### [facility] [address] [address] [address] Deidre Tijerina AST [Catalytic activity/Vol] 14 U/L Critically low 15-37 [facility] Comment on above: Performed By: #### P OCGLUC #### [facility] [address] [address] [address] Deidre Tijerina Bilirubin [Mass/Vol] 2.6 mg/dL Critically high 0.2-1.0 [facility] Comment on above: Performed By: #### P OCGLUC #### [facility] [address] [address] [address] Deidre Tijerina Calcium [Mass/Vol] 8.5 mg/dL Normal 8.5-10.1 [facility] Comment on above: Performed By: #### P OCGLUC #### [facility] [address] [address] [address] Deidre Tijerina Chloride [Moles/Vol] 98 mmol/L Normal 98-107 [facility] Comment on above: Performed By: #### P OCGLUC #### [facility] [address] [address] [address] Deidre Tijerina CO2 [Moles/Vol] 26.0 mmol/L Normal 21.0-32.0 [facility] Comment on above: Performed By: #### P OCGLUC #### [facility] [address] [address] [address] Deidre Tijerina Creatinine [Mass/Vol] 1.43 mg/dL Critically high 0.70-1.30 [facility] Comment on above: Performed By: #### P OCGLUC #### [facility] [address] [address] [address] Deidre Tijerina EGFR-AF MEXICAN 58 mL/min/1.73m2 Critically low >=60 [facility] Comment on above: Performed By: #### P OCGLUC #### [facility] [address] [address] [address] Deidre Tijerina EGFR-NON AF MEXICAN 48 mL/min/1.73m2 Critically low >=60 [facility] Comment on above: Performed By: #### P OCGLUC #### [facility] [address] [address] [address] Deidre Tijerina Globulin (S) [Mass/Vol] 5.0 g/dL Normal [facility] Comment on above: Performed By: #### P OCGLUC #### [facility] [address] [address] [address] Deidre Tijerina Glucose [Mass/Vol] 165 mg/dL Critically high 74-106 [facility] Comment on above: Performed By: #### P OCGLUC #### [facility] [address] [address] [address] Deidre Tijerina Potassium [Moles/Vol] 4.3 mmol/L Normal 3.5-5.1 [facility] Comment on above: Performed By: #### P OCGLUC #### [facility] [address] [address] [address] Deidre Tijerina Protein [Mass/Vol] 7.9 g/dL Normal 6.4-8.2 [facility] Comment on above: Performed By: #### P OCGLUC #### [facility] [address] [address] [address] Deidre Tijerina Sodium [Moles/Vol] 132 mmol/L Critically low 136-145 [facility] Comment on above: Performed By: #### P OCGLUC #### [facility] [address] [address] [address] Deidre Tijerina Urea nitrogen [Mass/Vol] 25.0 mg/dL Critically high 7.0-18.0 [facility] Comment on above: Performed By: #### P OCGLUC #### [facility] [address] [address] [address] Deidre Tijerina Urea nitrogen/Creatinine [Mass ratio] 17.5 mg/mg Normal [facility] Comment on above: Performed By: #### P OCGLUC #### [facility] [address] [address] [address] Deidre Tijerina TROPONIN, HIGH SENSITIVITYon 08-18-2022 HSTROP 8.4 pg/mL Normal 4.0-76.1 [facility] Comment on above: Result Comment: CUT- OFF POINTS HAVE BEEN ESTABLISHED BASED ON THE FOURTH UNIVERSAL DEFINITIONS OF MYOCARDIAL INFARCTION. THE UPPER REFERENCE LIMIT (URL) OF TROPONIN, DEFINED THE 99TH PERCENTILE OF cTnI DISTRIBUTION IN A REFERENCE POPULATION, HAS BEEN CONFIRMED THE DECISION THRESHOLD FOR ND DIAGNOSIS. Performed By: #### P OCGLUC #### [facility] [address] [address] [address] Deidre Tijerina XR CHEST 1 Von [...] left costophrenic angle is excluded from the [id number]. 3. No overt edema, failure, pneumothorax, or sizable effusion noted within limits of study. 4. Old healed nondisplaced anterior right fifth rib fracture deformity faintly suggested. Electronically authenticated by: ESTUARDO GARCIAH Date: 2022-08-18 09:37 Normal [facility] STRESS/REST MULTIon 08-04 NM STRESS/REST MULTI Patient: ARIANNE MCQUEEN Exam Date: 08/04/2022 : 1945 Gender:M Ordering : DR CATINA SALAZAR M.D. Admission #: [id number] Family : Order #: [id number] CLICK HERE TO VIEW EXAM RADIOLOGY REPORT [...] Banks MD on 08/07/2022 at 08:29 Normal [facility] BNPon 07-14-2022 Natriuretic peptide B (Bld) [Mass/Vol] 164.0 pg/mL Normal <=1,800.0 [facility] Comment on above: Performed By: #### B MECHANIC MARINE ENGINE, BMP #### [facility] [address] [place] [address] Dr. Deidre Tijerina PROF CHEM 8 (BAS METB)on Anion gap [Moles/Vol] 9.2 mmol/L Normal [facility] Comment on above: Performed By: #### B MECHANIC MARINE ENGINE, BMP #### [facility] [address] [place] [address] Dr. Deidre Tijerina Calcium [Mass/Vol] 8.4 mg/dL Critically low 8.5-10.1 [facility] Comment on above: Performed By: #### B MECHANIC MARINE ENGINE, BMP #### [facility] [address] [place] [address] Dr. Deidre Tijerina Chloride [Moles/Vol] 106 mmol/L Normal 98-107 [facility] Comment on above: Performed By: #### B MECHANIC MARINE ENGINE, BMP #### [facility] [address] [place] [address] Dr. Deidre Tijerina CO2 [Moles/Vol] 27.0 mmol/L Normal 21.0-32.0 [facility] Comment on above: Performed By: #### B MECHANIC MARINE ENGINE, BMP #### [facility] [address] [address] [address] Deidre Tijerina Creatinine [Mass/Vol] 1.38 mg/dL Critically high 0.70-1.30 [facility] Comment on above: Performed By: #### B MECHANIC MARINE ENGINE, BMP #### [facility] [address] [address] [address] Deidre Tijerina EGFR-AF MEXICAN =60 Normal >=60 [facility] Comment on above: Performed By: #### B MECHANIC MARINE ENGINE, BMP #### [facility] [address] [place] [address] Dr. Deidre Tijerina EGFR-NON AF MEXICAN 50 mL/min/1.73m2 Critically low >=60 [facility] Comment on above: Performed By: #### B MECHANIC MARINE ENGINE, BMP #### [facility] [address] [place] [address] Dr. Deidre Tijerina Glucose [Mass/Vol] 95 mg/dL Normal 74-106 [facility] Comment on above: Performed By: #### B MECHANIC MARINE ENGINE, BMP #### [facility] [address] [place] [address] Dr. Deidre Tijerina Potassium [Moles/Vol] 5.2 mmol/L Critically high 3.5-5.1 [facility] Comment on above: Performed By: #### B MECHANIC MARINE ENGINE, BMP #### [facility] [address] [place] [address] Dr. Deidre Tijerina Sodium [Moles/Vol] 137 mmol/L Normal 136-145 [facility] Comment on above: Performed By: #### B MECHANIC MARINE ENGINE, BMP #### [facility] [address] [place] [address] Dr. Deidre Tijerina Urea nitrogen [Mass/Vol] 25.0 mg/dL Critically high 7.0-18.0 [facility] Comment on above: Performed By: #### B MECHANIC MARINE ENGINE, BMP #### [facility] [address] [place] [address] Dr. Deidre Tijerina Urea nitrogen/Creatinine [Mass ratio] 18.1 mg/mg Normal [facility] Comment on above: Performed By: #### B MECHANIC MARINE ENGINE, [facility] #### [facility] [id number] Deidre Tijerina ECHOCARDIO M/2D COMPLETEon 0 05-08-2022 ECHOCARDIO M/2D COMPLETE Patient: ARIANNE MCQUEEN Exam Date: 05/08/2022 : 1945 Gender:M Ordering : DR CATINA SALAZAR M.D. Admission #: [id number] Family : DR MAL BARNES D.OFrancine Order #: [id number] CLICK HERE TO VIEW EXAM ECHOCARDIOGRAM REPORT [...] Salazar M.D. on 05/09/2022 at 19:48 Normal [facility] XR LSPINE MIN 4 VIEWSon 04-24 [...] NOREEN KELLY Date: 2022-05-08 10:47 Normal [facility] PROF CHEM 8 (BAS METB)on Anion gap [Moles/Vol] 6.8 mmol/L Normal [facility] Comment on above: Performed By: #### P OCGLUC #### [facility] [address] [address] [address] Deidre Tijerina Calcium [Mass/Vol] 8.8 mg/dL Normal 8.5-10.1 [facility] Comment on above: Performed By: #### P OCGLUC #### [facility] [address] [address] [address] Deidre Tijerina Chloride [Moles/Vol] 102 mmol/L Normal 98-107 [facility] Comment on above: Performed By: #### P OCGLUC #### [facility] [address] [address] [address] Deidre Tijerina CO2 [Moles/Vol] 28.1 mmol/L Normal 21.0-32.0 [facility] Comment on above: Performed By: #### P OCGLUC #### [facility] [address] [address] [address] Deidre Tijerina Creatinine [Mass/Vol] 1.84 mg/dL Critically high 0.70-1.30 [facility] Comment on above: Performed By: #### P OCGLUC #### [facility] [address] [address] [address] Deidre Tijerina EGFR-AF MEXICAN 43 mL/min/1.73m2 Critically low >=60 [facility] Comment on above: Performed By: #### P OCGLUC #### [facility] [address] [address] [address] Deidre Tijerina EGFR-NON AF MEXICAN 36 mL/min/1.73m2 Critically low >=60 [facility] Comment on above: Performed By: #### P OCGLUC #### [facility] [address] [address] [address] Deidre Tijerina Glucose [Mass/Vol] 112 mg/dL Critically high 74-106 [facility] Comment on above: Performed By: #### P OCGLUC #### [facility] [address] [address] [address] Deidre Tijerina Potassium [Moles/Vol] 4.9 mmol/L Normal 3.5-5.1 [facility] Comment on above: Performed By: #### P OCGLUC #### [facility] [address] [address] [address] Deidre Tijerina Sodium [Moles/Vol] 132 mmol/L Critically low 136-145 [facility] Comment on above: Performed By: #### P OCGLUC #### [facility] [address] [address] [address] Deidre Tijerina Urea nitrogen [Mass/Vol] 40.0 mg/dL Critically high 7.0-18.0 [facility] Comment on above: Performed By: #### P OCGLUC #### [facility] [address] [address] [address] Deidre Tijerina Urea nitrogen/Creatinine [Mass ratio] 21.7 mg/mg Normal [facility] Comment on above: Performed By: #### P OCGLUC #### [facility] [address] [address] [address] Deidre Tijerina PROF CHEM 8 (BAS METB)on Anion gap [Moles/Vol] 8.9 mmol/L Normal [facility] Comment on above: Performed By: #### B MP #### [facility] [address] [address] [address] Deidre Tijerina Calcium [Mass/Vol] 8.4 mg/dL Critically low 8.5-10.1 [facility] Comment on above: Performed By: #### B MP #### [facility] [address] [address] [address] Deidre Tijerina Chloride [Moles/Vol] 102 mmol/L Normal 98-107 [facility] Comment on above: Performed By: #### B MP #### [facility] [address] [address] [address] Deidre Tijerina CO2 [Moles/Vol] 25.9 mmol/L Normal 21.0-32.0 [facility] Comment on above: Performed By: #### B MP #### [facility] [address] [address] [address] Deidre Tijerina Creatinine [Mass/Vol] 1.20 mg/dL Normal 0.70-1.30 [facility] Comment on above: Performed By: #### B MP #### [facility] [address] [address] [address] Deidre Tijerina EGFR-AF MEXICAN >60 Normal >=60 [facility] Comment on above: Performed By: #### B MP #### [facility] [address] [address] [address] Deidre Tijerina EGFR-NON AF MEXICAN 59 mL/min/1.73m2 Critically low >=60 [facility] Comment on above: Performed By: #### B MP #### [facility] [address] [address] [address] Deidre Tijerina Glucose [Mass/Vol] 117 mg/dL Critically high 74-106 [facility] Comment on above: Performed By: #### B MP #### [facility] [address] [address] [address] Deidre Tijerina Potassium [Moles/Vol] 4.8 mmol/L Normal 3.5-5.1 [facility] Comment on above: Performed By: #### B MP #### [facility] [address], [place] [address] Dr. Deidre Tijerina Sodium [Moles/Vol] 132 mmol/L Critically low 136-145 [facility] Comment on above: Performed By: #### B MP #### [facility] [address], [place] [address] Dr. Deidre Tijerina Urea nitrogen [Mass/Vol] 25.0 mg/dL Critically high 7.0-18.0 [facility] Comment on above: Performed By: #### B MP #### [facility] [address], [place] [address] Dr. Deidre Tijerina Urea nitrogen/Creatinine [Mass ratio] 20.8 mg/mg Normal [facility] Comment on above: Performed By: #### B MP #### [facility] [address], [place] [address] Dr. Deidre Tijreina US CHESTon 08-05-2021 US CHEST Normal [facility] Comment on above: Order Comment: serom a in the chest needs a drain placed BASIC METABOLIC PANELon 10- Calcium [Mass/Vol] 8.4 mg/dL Low 8.6-10.3 [facility] Comment on above: Order Comment: this is not a nurse draw. lab draw pleaseNo: Do not add to previous draw Performed By: #### 0 0071 ####[facility] [place] [address], [facility] Chloride [Moles/Vol] 102 mmol/L Normal 98-107 [facility] Comment on above: Order Comment: this is not a nurse draw. lab draw pleaseNo: Do not add to previous draw Performed By: #### 0 0071 ####[facility] [place] [address], [facility] CO2 [Moles/Vol] 25 mmol/L Normal 21-31 [facility] Comment on above: Order Comment: this is not a nurse draw. lab draw pleaseNo: Do not add to previous draw Performed By: #### 0 0071 ####[facility] [place] [address], [facility] Creatinine [Mass/Vol] 2.56 mg/dL High 0.70-1.30 [facility] Comment on above: Order Comment: this is not a nurse draw. lab draw pleaseNo: Do not add to previous draw Performed By: #### 0 0071 ####[facility] [place] [address], [facility] eGFR- 30 ml/min/1.73sq m Abnormal >60 [facility] Comment on above: Order Comment: this is not a nurse draw. lab draw pleaseNo: Do not add to previous draw Result Comment: Calc ulation may not be valid for patients over 70 years Performed By: #### 0 0071 ####[facility] [facility] [place] [address], [facility] eGFR- non- 24 ml/min/1.73sq m Abnormal >60 [facility] Comment on above: Order Comment: this is not a nurse draw. lab draw pleaseNo: Do not add to previous draw Result Comment: Calc ulation may not be valid for patients over 70 years Performed By: #### 0 0071 ####[facility] [facility] [address], [facility] Glucose [Mass/Vol] 182 mg/dL High 70-100 [facility] Comment on above: Order Comment: this is not a nurse draw. lab draw pleaseNo: Do not add to previous draw Performed By: #### 0 0071 ####[facility] [facility] [id number], [facility] Potassium [Moles/Vol] 4.5 mmol/L Normal 3.5-5.1 [facility] Comment on above: Order Comment: this is not a nurse draw. lab draw pleaseNo: Do not add to previous draw Performed By: #### 0 0071 ####[facility] [facility] [place] [address], [facility] Sodium [Moles/Vol] 133 mmol/L Low 136-145 [facility] Comment on above: Order Comment: this is not a nurse draw. lab draw pleaseNo: Do not add to previous draw Performed By: #### 0 0071 ####[facility] [facility] [place] [address], [facility] Urea nitrogen [Mass/Vol] 28 mg/dL High 7-25 [facility] Comment on above: Order Comment: this is not a nurse draw. lab draw pleaseNo: Do not add to previous draw Performed By: #### 0 0071 ####[facility] [place] [address].[address] POC GLUCOSE LABon 06-02-2021 Glucose [Mass/Vol] 246 mg/dL High 70-100 [facility] Comment on above: Performed By: #### 8 5499 ####[facility] [facility] [place] [address], [facility] Glucose [Mass/Vol] 109 mg/dL High 70-100 [facility] Comment on above: Performed By: #### 8 5499 ####[facility] [facility].[address] POC SARS COV2 ANTIGEN NEGATI VEon 06-02-2021 POC SARS COV2 ANTIGEN NEG Negative Normal NEGATIVE [facility] Comment on above: Result Comment: Nega tive [...] of clinicalsigns and symptoms consistent with COVID-19.The [employer] COVID-19 Ag Card is a lateral flow immunoassay intended forthe qualitative detection of nucleocapsid protein antigen [id number] in direct nasal swabs from individuals within [...] Certificate ofAccreditation. Performed By: #### 3 1976 ####[facility] [facility] [place] [address], [facility] POC SARS COV2 ANTIGEN NEG Negative Normal NEGATIVE [facility] Comment on above: Result Comment: Nega tive [...] of clinicalsigns and symptoms consistent with COVID-19.The varinodeW COVID-19 Ag Card is a lateral flow immunoassay intended forthe qualitative detection of nucleocapsid protein antigen [id number]-[id number] in direct nasal swabs from individuals within [...] Certificate ofAccreditation. Performed By: #### 3 1976 ####[facility] [facility] [place] [address], [facility] POC GLUCOSE LABon 06-01-2021 Glucose [Mass/Vol] 142 mg/dL High 70-100 [facility] Comment on above: Performed By: #### 8 [id number] ####[facility] [facility] [place] [address], [facility] Glucose [Mass/Vol] 132 mg/dL High 70-100 [facility] Comment on above: Performed By: #### 8 5499 ####[facility] [facility] [place] [address], [facility] Glucose [Mass/Vol] 167 mg/dL High 70-100 [facility] Comment on above: Performed By: #### 8 5499 ####[facility] [facility] [place] [address], [facility] Glucose [Mass/Vol] 113 mg/dL High 70-100 [facility] Comment on above: Performed By: #### 8 5499 ####[facility] [facility].[address] APTTon 05-31-2021 aPTT Coag (Bld) [Time] 29.3 s Normal 25.0-35.0 [facility] Comment on above: Result Comment: ALL RESULTS [...] THIS PURPOSE. Performed By: #### 5 7307, [id number] ####[facility] [facility] [place] [address], [facility] CBC W/DIFFon 05-31-2021 ABS IMM GRANS 0.1 10*3/uL Normal 0.0-0.2 The [facility] Comment on above: Order Comment: No: D o not add to previous draw Performed By: #### 5 0103 ####[facility] [place] [address], [facility] ABS NEUTROPHILS 4.9 10*3/uL Normal 1.6-7.6 [facility] Comment on above: Order Comment: No: D o not add to previous draw Performed By: #### 5 0103 ####[facility] [place] [address], [facility] Basophils (Bld) [#/Vol] 0.1 10*3/uL Normal 0.0-0.2 [facility] Comment on above: Order Comment: No: D o not add to previous draw Performed By: #### 5 0103 ####[facility] [place] [address], [facility] Basophils/100 WBC (Bld) 0.6 % Normal 0.0-1.0 [facility] Comment on above: Order Comment: No: D o not add to previous draw Performed By: #### 5 0103 ####[facility] [place] [address], [facility] Eosinophils (Bld) [#/Vol] 0.4 10*3/uL Normal 0.0-0.5 [facility] Comment on above: Order Comment: No: D o not add to previous draw Performed By: #### 5 0103 ####[facility] [place] [address], [facility] Eosinophils/100 WBC (Bld) 5.3 % Normal 0.0-6.0 [facility] Comment on above: Order Comment: No: D o not add to previous draw Performed By: #### 5 0103 ####[facility] [place] [address], [facility] Erythrocyte distribution width (RBC) [Ratio] 15.7 % High 11.5-15.0 [facility] Comment on above: Order Comment: No: D o not add to previous draw Performed By: #### 5 0103 ####[facility] Hematocrit (Bld) [Volume fraction] 27.6 % Low 39.0-50.0 [facility] Comment on above: Order Comment: No: D o not add to previous draw Performed By: #### 5 0103 ####[facility] [place] [address], [facility] Hemoglobin (Bld) [Mass/Vol] 8.5 g/dL Low 13.0-17.0 [facility] Comment on above: Order Comment: No: D o not add to previous draw Performed By: #### 5 0103 ####[facility] IMMATURE GRANS 1.1 % High 0.0-1.0 The [facility] Comment on above: Order Comment: No: D o not add to previous draw Performed By: #### 5 0103 ####[facility] Lymphocytes (Bld) [#/Vol] 1.7 10*3/uL Normal 1.2-4.0 [facility] Comment on above: Order Comment: No: D o not add to previous draw Performed By: #### 5 3 ####[facility] Lymphocytes/100 WBC (Bld) 21.4 % Normal 20.0-45.0 [facility] Comment on above: Order Comment: No: D o not add to previous draw Performed By: #### 5 0103 ####[facility] [place] [address], [facility] MCH (RBC) [Entitic mass] 29.2 pg Normal 27.0-33.0 [facility] Comment on above: Order Comment: No: D o not add to previous draw Performed By: #### 5 3 ####[facility] MCHC (RBC) [Mass/Vol] 30.8 g/dL Low 32.0-35.0 [facility] Comment on above: Order Comment: No: D o not add to previous draw Performed By: #### 5 0103 ####[facility] [facility] [place] [address], [facility] MCV (RBC) [Entitic vol] 94.8 fL Normal 82.0-98.0 [facility] Comment on above: Order Comment: No: D o not add to previous draw Performed By: #### 5 0103 ####[address] Monocytes (Bld) [#/Vol] 0.8 10*3/uL Normal 0.1-1.0 [facility] Comment on above: Order Comment: No: D o not add to previous draw Performed By: #### 5 0103 ####[facility] [facility].[address] MONOS 9.7 % Normal 5.0-12.0 [facility] Comment on above: Order Comment: No: D o not add to previous draw Performed By: #### 5 3 ####[address] Neutrophils/100 WBC (Bld) 61.9 % Normal 40.0-72.0 [facility] Comment on above: Order Comment: No: D o not add to previous draw Performed By: #### 5 0103 ####[id number] [facility] [place] [address], [facility] Nucleated RBC/100 WBC (Bld) [Ratio] 0 % Normal 0-0 [facility] Comment on above: Order Comment: No: D o not add to previous draw Performed By: #### 5 3 ####[address] PLAT CNT 351 10*3/uL Normal 150-400 The [facility] Comment on above: Order Comment: No: D o not add to previous draw Performed By: #### 5 0103 ####[facility] RBC (Bld) [#/Vol] 2.91 10*6/uL Low 4.20-5.70 The [facility] Comment on above: Order Comment: No: D o not add to previous draw Performed By: #### 5 0103 ####[facility] [place] [address], [facility] WBC (Bld) [#/Vol] 7.96 10*3/uL Normal 4.00-10.60 [facility] Comment on above: Order Comment: No: D o not add to previous draw Performed By: #### 5 3 ####[facility] COMP METABOLIC PANELon 05-31 Albumin [Mass/Vol] 2.9 g/dL Low 3.5-5.7 [facility] Comment on above: Order Comment: No: D o not add to previous drawNurse draw Performed By: #### 1 69, 36298 ####[facility] ALKALINE PHOSPH 70 IU/L Normal 34-[address] [facility] Comment on above: Order Comment: No: D o not add to previous drawNurse draw Performed By: #### 1 0070, 28381 ####[facility] ALT [Catalytic activity/Vol] 9 U/L Normal 7-52 [facility] Comment on above: Order Comment: No: D o not add to previous drawNurse draw Performed By: #### 1 0070, 38989 ####[facility] [place] [address], [place] AST [Catalytic activity/Vol] 11 U/L Low 13-39 [facility] Comment on above: Order Comment: No: D o not add to previous drawNurse draw Performed By: #### 1 69, 57254 ####[facility] [place] [address], [place] Bilirubin [Mass/Vol] 0.6 mg/dL Normal 0.3-1.0 [facility] Comment on above: Order Comment: No: D o not add to previous drawNurse draw Performed By: #### 1 69, 04583 ####[facility] [id number], [place] Calcium [Mass/Vol] 8.4 mg/dL Low 8.6-10.3 [facility] Comment on above: Order Comment: No: D o not add to previous drawNurse draw Performed By: #### 1 69, 96259 ####[facility] [place] [address], [place] Chloride [Moles/Vol] 102 mmol/L Normal 98-107 [facility] Comment on above: Order Comment: No: D o not add to previous drawNurse draw Performed By: #### 1 69, 31583 ####[facility] [place] [address], [place] CO2 [Moles/Vol] 27 mmol/L Normal 21-[address] [facility] Comment on above: Order Comment: No: D o not add to previous drawNurse draw Performed By: #### 1 0, 47230 ####[facility] [place] [address], [place] Creatinine [Mass/Vol] 2.90 mg/dL High 0.70-1.30 [facility] Comment on above: Order Comment: No: D o not add to previous drawNurse draw Performed By: #### 1 0, 02173 ####[facility] [place] [address], [facility] eGFR- 26 ml/min/1.73sq m Abnormal >60 The [facility] Comment on above: Order Comment: No: D o not add to previous drawNurse draw Result Comment: Calc ulation may not be valid for patients over 70 years Performed By: #### 1 0, 56341 ####[facility] [place] [address], [facility] eGFR- non- 21 ml/min/1.73sq m Abnormal >60 The [facility] Comment on above: Order Comment: No: D o not add to previous drawNurse draw Result Comment: Calc ulation may not be valid for patients over 70 years Performed By: #### 1 0, 80627 ####[facility] [place] [address], [place] Glucose [Mass/Vol] 97 mg/dL Normal 70-100 [facility] Comment on above: Order Comment: No: D o not add to previous drawNurse draw Performed By: #### 1 0, 25840 ####[facility] [place] [address], [place] Potassium [Moles/Vol] 4.4 mmol/L Normal 3.5-5.1 [facility] Comment on above: Order Comment: No: D o not add to previous drawNurse draw Performed By: #### 1 0, 22785 ####[facility] [place] [address], [place] Protein [Mass/Vol] 6.5 g/dL Normal 6.0-8.3 [facility] Comment on above: Order Comment: No: D o not add to previous drawNurse draw Performed By: #### 1 0, 93881 ####[facility] [place] [address], [facility] Sodium [Moles/Vol] 134 mmol/L Low 136-145 [facility] Comment on above: Order Comment: No: D o not add to previous drawNurse draw Performed By: #### 1 0, 49735 ####[facility] [place] [address], [place] Urea nitrogen [Mass/Vol] 31 mg/dL High 7-25 [facility] Comment on above: Order Comment: No: D o not add to previous drawNurse draw Performed By: #### 1 0, 65985 ####[facility] [place] [address], [place] MAGNESIUM BLOODon 05-31-2021 Magnesium [Mass/Vol] 1.8 mg/dL Low 1.9-2.7 [facility] Comment on above: Performed By: #### 1 69, 66701 ####[facility] [place] [address], [place] POC GLUCOSE LABon 05-31-2021 Glucose [Mass/Vol] 120 mg/dL High 70-100 [facility] Comment on above: Performed By: #### 8 5499 ####[facility] [place] [address], [place] Glucose [Mass/Vol] 124 mg/dL High 70-100 [facility] Comment on above: Performed By: #### 8 5499 ####[facility] [place] [address], [place] Glucose [Mass/Vol] 136 mg/dL High 70-100 [facility] Comment on above: Performed By: #### 8 5499 ####[facility] [place] [address], [place] Glucose [Mass/Vol] 115 mg/dL High 70-100 [facility] Comment on above: Performed By: #### 8 5499 ####[facility] [facility] [place] [address], [facility] PORTABLE CHEST 1 VIEWon PORTABLE CHEST 1 VIEW Normal [facility] Comment on above: Order Comment: evalu ate for CHF PROTHROMBIN TIMEon INR Coag (PPP) [Relative time] 1.13 {INR} Normal 0.91-1.16 [facility] Comment on above: Result Comment: ACCC P RECOMMENDED INR FOR WARFARIN THERAPY CONDITION INRPROPHYLAXIS OF VENOUS THROMBOSIS 2-3(HIGH-RISK SURGERY)TREATMENT OF VENOUS THROMBOSIS 2-3TREATMENT OF PULMONARY EMBOLISM 2-3PREVENTION OF SYSTEMIC EMBOLISM: 2-3 ACUTE MYOCARDIAL INFARCTION TISSUE HEART VALVES VALVULAR HEART DISEASE ATRIAL FIBRILLATION RECURRENT SYSTEMIC EMBOLISMMECHANICAL HEART VALVE 2.5-3.5 FROM: ORAL ANTICOAGULANTS. MECHANISM OF ACTION, CLINICALEFFECTIVENESS, AND OPTIMAL THERAPEUTIC RANGE. [id number]. Performed By: #### 5 7307, 03794 ####[facility] [facility] [place] [address], [facility] PT Coag (PPP) [Time] 14.5 s Normal 12.3-14.8 [facility] Comment on above: Result Comment: ALL RESULTS MUST BE INTERPRETED WITH RESPECT TO BLOOD DRAWING ARTIFACTOR DILUTION ERROR OF ANTICOAGULANT AT THE TIME OF SAMPLING. Performed By: #### 5 7307, 24562 ####[facility] [facility] [place] [address], [facility] ALBUMIN BLOODon 05-30-2021 Albumin [Mass/Vol] 3.0 g/dL Low 3.5-5.7 [facility] Comment on above: Performed By: #### 1 0, , 14415 ####[facility] BASIC METABOLIC PANELon 10-0 Calcium [Mass/Vol] 8.6 mg/dL Normal 8.6-10.3 [facility] Comment on above: Order Comment: No: D o not add to previous draw Performed By: #### 1 0, , 08125 ####[facility] [place] [address], [facility] Chloride [Moles/Vol] 102 mmol/L Normal 98-107 [facility] Comment on above: Order Comment: No: D o not add to previous draw Performed By: #### 1 69, , 43378 ####[facility] [place] [address], [facility] CO2 [Moles/Vol] 25 mmol/L Normal 21-[address] [facility] Comment on above: Order Comment: No: D o not add to previous draw Performed By: #### 1 0, , 56074 ####[facility] [place] [address], [facility] Creatinine [Mass/Vol] 2.49 mg/dL High 0.70-1.30 [facility] Comment on above: Order Comment: No: D o not add to previous draw Performed By: #### 1 0, 22269, 16091 ####[facility] [place] [address], [facility] eGFR- 31 ml/min/1.73sq m Abnormal >60 The [facility] Comment on above: Order Comment: No: D o not add to previous draw Result Comment: Calc ulation may not be valid for patients over 70 years Performed By: #### 1 69, , ####[facility] [place] [address], [facility] eGFR- non- 25 ml/min/1.73sq m Abnormal >60 [facility] Comment on above: Order Comment: No: D o not add to previous draw Result Comment: Calc ulation may not be valid for patients over 70 years Performed By: #### 1 69, , 31205 ####[facility] [place] [address], [facility] Glucose [Mass/Vol] 100 mg/dL Normal 70-100 [facility] Comment on above: Order Comment: No: D o not add to previous draw Performed By: #### 1 69, , ####[facility] [place] [address], [facility] Potassium [Moles/Vol] 4.5 mmol/L Normal 3.5-5.1 [facility] Comment on above: Order Comment: No: D o not add to previous draw Performed By: #### 1 69, , ####[facility] [place] [address], [place] Sodium [Moles/Vol] 134 mmol/L Low 136-145 [facility] Comment on above: Order Comment: No: D o not add to previous draw Performed By: #### 1 69, , ####[facility] [place] [address], [place] Urea nitrogen [Mass/Vol] 32 mg/dL High 7-25 [facility] Comment on above: Order Comment: No: D o not add to previous draw Performed By: #### 1 69, , ####[facility] [place] [address], [place] CBC COMPLETE BLOOD COUNTon 1 Erythrocyte distribution width (RBC) [Ratio] 15.7 % High 11.5-15.0 [facility] Comment on above: Order Comment: No: D o not add to previous draw Performed By: #### 5 0608 ####[facility] [facility].[address] Hematocrit (Bld) [Volume fraction] 26.5 % Low 39.0-50.0 [facility] Comment on above: Order Comment: No: D o not add to previous draw Performed By: #### 5 0608 ####[facility] Hemoglobin (Bld) [Mass/Vol] 8.4 g/dL Low 13.0-17.0 [facility] Comment on above: Order Comment: No: D o not add to previous draw Performed By: #### 5 0608 ####[facility] MCH (RBC) [Entitic mass] 28.9 pg Normal 27.0-33.0 [facility] Comment on above: Order Comment: No: D o not add to previous draw Performed By: #### 5 0608 ####[facility] MCHC (RBC) [Mass/Vol] 31.7 g/dL Low 32.0-35.0 [facility] Comment on above: Order Comment: No: D o not add to previous draw Performed By: #### 5 0608 ####[facility] [place] [address], [facility] MCV (RBC) [Entitic vol] 91.1 fL Normal 82.0-98.0 [facility] Comment on above: Order Comment: No: D o not add to previous draw Performed By: #### 5 0608 ####[facility] [place] [address].[address] Nucleated RBC/100 WBC (Bld) [Ratio] 0 % Normal 0-0 [facility] Comment on above: Order Comment: No: D o not add to previous draw Performed By: #### 5 0608 ####[facility] [facility] [place] [address], [facility] PLAT CNT 338 10*3/uL Normal 150-400 [facility] Comment on above: Order Comment: No: D o not add to previous draw Performed By: #### 5 0608 ####[facility] [facility] [place] [address], [facility] RBC (Bld) [#/Vol] 2.91 10*6/uL Low 4.20-5.70 [facility] Comment on above: Order Comment: No: D o not add to previous draw Performed By: #### 5 0608 ####[facility] [facility] [place] [address], [facility] WBC (Bld) [#/Vol] 7.23 10*3/uL Normal 4.00-10.60 [facility] Comment on above: Order Comment: No: D o not add to previous draw Performed By: #### 5 0608 ####[facility] [facility] [place] [address], [facility] CREATININE URINE RANDOMon Creatinine (U) [Mass/Vol] 39.0 mg/dL Normal [facility] Comment on above: Order Comment: No: D o not add to previous draw Result Comment: Ther e are no established reference values for random urine specimens Performed By: #### 2 5706, 03819 ####[facility] [facility] [place] [address], [facility] MAGNESIUM BLOODon 05-30-2021 Magnesium [Mass/Vol] 1.9 mg/dL Normal 1.9-2.7 [facility] Comment on above: Order Comment: No: D o not add to previous draw Performed By: #### 1 0070, 81782, 84555 ####[facility] [facility] [place] [address], [facility] POC GLUCOSE LABon 05-30-2021 Glucose [Mass/Vol] 155 mg/dL High 70-100 [facility] Comment on above: Performed By: #### 8 5499 ####[facility] [facility] [place] [address], [facility] Glucose [Mass/Vol] 129 mg/dL High 70-100 [facility] Comment on above: Performed By: #### 8 5499 ####[facility] [facility] [place] [address], [facility] Glucose [Mass/Vol] 147 mg/dL High 70-100 [facility] Comment on above: Performed By: #### 8 5499 ####[facility] [place] [address], [facility] PORTABLE CHEST 1 VIEWon 10-0 PORTABLE CHEST 1 VIEW Normal [facility] Comment on above: Order Comment: Evalu ate for Atelectasis T PROT UR Isi 05-30-2021 U TOTAL PROTEIN 88.8 mg/dL Normal The [facility] Comment on above: Order Comment: No: D o not add to previous draw Result Comment: Ther e are no established reference values for random urine specimens Performed By: #### 2 5706, 02871 ####[facility] [facility] [place] [address], [facility] URINE TRINH STAIN/EOSon EOSINOPHIL SMEAR NONE SEEN Normal NSN [facility] Comment on above: Order Comment: No: D o not add to previous draw [place] Normal [facility] Comment on above: Order Comment: No: D o not add to previous draw Result Comment: Test Performed by [facility] [address] [place] [id number] - Released 05/30/2021 20:40 US RENALon 05-30-2021 US RENAL Normal [facility] Comment on above: Order Comment: Other , FREDA BASIC METABOLIC PANELon 10-0 Calcium [Mass/Vol] 8.4 mg/dL Low 8.6-10.3 [facility] Comment on above: Order Comment: No: D o not add to previous draw Performed By: #### 4 1000, 35738, 07091 ####[facility] [place] [address], [facility] Chloride [Moles/Vol] 102 mmol/L Normal 98-107 [facility] Comment on above: Order Comment: No: D o not add to previous draw Performed By: #### 4 1000, 22646, 97189 ####[facility] [place] [address], [facility] CO2 [Moles/Vol] 25 mmol/L Normal 21-[address] [facility] Comment on above: Order Comment: No: D o not add to previous draw Performed By: #### 4 1000, 93242, 84002 ####[facility] [place] [address], [facility] Creatinine [Mass/Vol] 2.12 mg/dL High 0.70-1.30 [facility] Comment on above: Order Comment: No: D o not add to previous draw Performed By: #### 4 1000, 80594, 06937 ####[facility] [place] [address], [facility] eGFR- 37 ml/min/1.73sq m Abnormal >60 [facility] Comment on above: Order Comment: No: D o not add to previous draw Result Comment: Calc ulation may not be valid for patients over 70 years Performed By: #### 4 1000, 36260, 88968 ####[facility] [place] [address], [facility] eGFR- non- 30 ml/min/1.73sq m Abnormal >60 [facility] Comment on above: Order Comment: No: D o not add to previous draw Result Comment: Calc ulation may not be valid for patients over 70 years Performed By: #### 4 1000, 30991, 69173 ####[facility] [place] [address], [facility] Glucose [Mass/Vol] 103 mg/dL High 70-100 [facility] Comment on above: Order Comment: No: D o not add to previous draw Performed By: #### 4 1000, 61894, 77010 ####[facility] [facility] [place] [address], [facility] Potassium [Moles/Vol] 4.6 mmol/L Normal 3.5-5.1 [facility] Comment on above: Order Comment: No: D o not add to previous draw Performed By: #### 4 1000, 52624, 16723 ####[facility] [place] [address], [facility] Sodium [Moles/Vol] 133 mmol/L Low 136-145 [facility] Comment on above: Order Comment: No: D o not add to previous draw Performed By: #### 4 1000, 76507, 06309 ####[facility] [facility] [place] [address], [facility] Urea nitrogen [Mass/Vol] 33 mg/dL High 7-25 [facility] Comment on above: Order Comment: No: D o not add to previous draw Performed By: #### 4 1000, 75387, 47956 ####[facility] [facility].[address] CBC COMPLETE BLOOD COUNTon Erythrocyte distribution width (RBC) [Ratio] 15.7 % High 11.5-15.0 [facility] Comment on above: Order Comment: No: D o not add to previous draw Performed By: #### 5 0608 ####[facility] [facility].[address] Hematocrit (Bld) [Volume fraction] 26.4 % Low 39.0-50.0 [facility] Comment on above: Order Comment: No: D o not add to previous draw Performed By: #### 5 0608 ####[facility] [facility].[address] Hemoglobin (Bld) [Mass/Vol] 8.4 g/dL Low 13.0-17.0 [facility] Comment on above: Order Comment: No: D o not add to previous draw Performed By: #### 5 0608 ####[address] MCH (RBC) [Entitic mass] 29.0 pg Normal 27.0-33.0 [facility] Comment on above: Order Comment: No: D o not add to previous draw Performed By: #### 5 0608 ####[facility] MCHC (RBC) [Mass/Vol] 31.8 g/dL Low 32.0-35.0 [facility] Comment on above: Order Comment: No: D o not add to previous draw Performed By: #### 5 0608 ####[facility] [place] [address].[address] MCV (RBC) [Entitic vol] 91.0 fL Normal 82.0-98.0 [facility] Comment on above: Order Comment: No: D o not add to previous draw Performed By: #### 5 0608 ####[address] Nucleated RBC/100 WBC (Bld) [Ratio] 0 % Normal 0-0 [facility] Comment on above: Order Comment: No: D o not add to previous draw Performed By: #### 5 0608 ####[facility] [place] [address], [facility] PLAT CNT 346 10*3/uL Normal 150-400 The [facility] Comment on above: Order Comment: No: D o not add to previous draw Performed By: #### 5 0608 ####[facility] [place] [address], [facility] RBC (Bld) [#/Vol] 2.90 10*6/uL Low 4.20-5.70 [facility] Comment on above: Order Comment: No: D o not add to previous draw Performed By: #### 5 0608 ####[facility] [facility] [address], [facility] WBC (Bld) [#/Vol] 7.17 10*3/uL Normal 4.00-10.60 [facility] Comment on above: Order Comment: No: D o not add to previous draw Performed By: #### 5 0608 ####[facility] [facility].[address] MAGNESIUM BLOODon 05-29-2021 Magnesium [Mass/Vol] 1.9 mg/dL Normal 1.9-2.7 [facility] Comment on above: Order Comment: No: D o not add to previous draw Performed By: #### 4 999, 00685, 13332 ####[facility] [place] [address], [facility] PHOSPHORUS BLOODon Phosphate [Mass/Vol] 4.4 mg/dL Normal 2.5-5.0 [facility] Comment on above: Order Comment: No: D o not add to previous draw Performed By: #### 4 999, 52950, 11038 ####[facility] [place] [address], [facility] POC GLUCOSE LABon 05-29-2021 Glucose [Mass/Vol] 183 mg/dL High 70-100 [facility] Comment on above: Performed By: #### 8 5499 ####[facility] [place] [address], [place] Glucose [Mass/Vol] 124 mg/dL High 70-100 [facility] Comment on above: Performed By: #### 8 5499 ####[facility] [place] [address], [place] Glucose [Mass/Vol] 187 mg/dL High 70-100 [facility] Comment on above: Performed By: #### 8 5499 ####[facility] [place] [address], [place] Glucose [Mass/Vol] 189 mg/dL High 70-100 [facility] Comment on above: Performed By: #### 8 5499 ####[facility] [place] [address], [place] PORTABLE CHEST 1 VIEWon 10-0 PORTABLE CHEST 1 VIEW Normal [facility] Comment on above: Order Comment: evalu ate for Atelectasis BASIC METABOLIC PANELon 10-0 Calcium [Mass/Vol] 8.3 mg/dL Low 8.6-10.3 [facility] Comment on above: Order Comment: No: D o not add to previous draw Performed By: #### 2 2268, 39783, 37150, 22690 ####[facility] [place] [address], [place] Chloride [Moles/Vol] 99 mmol/L Normal 98-107 [facility] Comment on above: Order Comment: No: D o not add to previous draw Performed By: #### 2 0578, 80990, 46761, 22584 ####[facility] [place] [address], [place] CO2 [Moles/Vol] 26 mmol/L Normal 21-[address] [facility] Comment on above: Order Comment: No: D o not add to previous draw Performed By: #### 2 5508, 51785, 64628, 54579 ####[facility] [place] [address], [facility] Creatinine [Mass/Vol] 2.18 mg/dL High 0.70-1.30 [facility] Comment on above: Order Comment: No: D o not add to previous draw Performed By: #### 2 5508, 75469, 29026, 03938 ####[facility] [facility] [address], [facility] eGFR- 36 ml/min/1.73sq m Abnormal >60 The [facility] Comment on above: Order Comment: No: D o not add to previous draw Result Comment: Calc ulation may not be valid for patients over 70 years Performed By: #### 2 5508, 99116, 68913, 23658 ####[facility] [place] [address], [facility] eGFR- non- 29 ml/min/1.73sq m Abnormal >60 [facility] Comment on above: Order Comment: No: D o not add to previous draw Result Comment: Calc ulation may not be valid for patients over 70 years Performed By: #### 2 5508, 56512, 34623, 14447 ####[facility] [place] [address], [place] Glucose [Mass/Vol] 100 mg/dL Normal 70-100 [facility] Comment on above: Order Comment: No: D o not add to previous draw Performed By: #### 2 5508, 76534, 14366, 16192 ####[facility] [place] [address], [place] Potassium [Moles/Vol] 5.3 mmol/L High 3.5-5.1 [facility] Comment on above: Order Comment: No: D o not add to previous draw Performed By: #### 2 5508, 23618, 44173, 13021 ####[facility] [facility].[address] Sodium [Moles/Vol] 131 mmol/L Low 136-145 [facility] Comment on above: Order Comment: No: D o not add to previous draw Performed By: #### 2 5508, 92714, 65283, 55632 ####[facility] [facility].[address] Urea nitrogen [Mass/Vol] 33 mg/dL High 7-25 [facility] Comment on above: Order Comment: No: D o not add to previous draw Performed By: #### 2 5508, 68596, 08343, 15641 ####[facility] [facility].[address] CBC W/DIFFon 05-28-2021 ABS IMM GRANS 0.2 10*3/uL Normal 0.0-0.2 The [facility] Comment on above: Performed By: #### 5 0103 ####[facility] [facility].[address] ABS NEUTROPHILS 5.6 10*3/uL Normal 1.6-7.6 The [facility] Comment on above: Performed By: #### 5 0103 ####[facility] [facility] [place] [address], [facility] Basophils (Bld) [#/Vol] 0.0 10*3/uL Normal 0.0-0.2 [facility] Comment on above: Performed By: #### 5 0103 ####[place] [address] Basophils/100 WBC (Bld) 0.5 % Normal 0.0-1.0 [facility] Comment on above: Performed By: #### 5 0103 ####[facility] [facility].[address] Eosinophils (Bld) [#/Vol] 0.4 10*3/uL Normal 0.0-0.5 [facility] Comment on above: Performed By: #### 5 0103 ####[facility] [facility].[address] Eosinophils/100 WBC (Bld) 4.5 % Normal 0.0-6.0 [facility] Comment on above: Performed By: #### 5 0103 ####[facility] [facility].[address] Erythrocyte distribution width (RBC) [Ratio] 15.6 % High 11.5-15.0 [facility] Comment on above: Performed By: #### 5 0103 ####[facility] [facility].[address] Hematocrit (Bld) [Volume fraction] 27.7 % Low 39.0-50.0 [facility] Comment on above: Performed By: #### 5 0103 ####[facility] [facility].[address] Hemoglobin (Bld) [Mass/Vol] 8.6 g/dL Low 13.0-17.0 [facility] Comment on above: Performed By: #### 5 3 ####[facility] IMMATURE GRANS 1.8 % High 0.0-1.0 The [facility] Comment on above: Performed By: #### 5 3 ####[facility] Lymphocytes (Bld) [#/Vol] 1.8 10*3/uL Normal 1.2-4.0 [facility] Comment on above: Performed By: #### 5 3 ####[facility] [facility].[address] Lymphocytes/100 WBC (Bld) 20.4 % Normal 20.0-45.0 [facility] Comment on above: Performed By: #### 5 3 ####[facility] [facility].[address] MCH (RBC) [Entitic mass] 28.6 pg Normal 27.0-33.0 [facility] Comment on above: Performed By: #### 5 3 ####[facility] [facility].[address] MCHC (RBC) [Mass/Vol] 31.0 g/dL Low 32.0-35.0 [facility] Comment on above: Performed By: #### 5 3 ####[facility] [facility] [place] [address], [facility] MCV (RBC) [Entitic vol] 92.0 fL Normal 82.0-98.0 [facility] Comment on above: Performed By: #### 5 3 ####[facility] Monocytes (Bld) [#/Vol] 0.9 10*3/uL Normal 0.1-1.0 [facility] Comment on above: Performed By: #### 5 3 ####[facility] MONOS 9.9 % Normal 5.0-12.0 [facility] Comment on above: Performed By: #### 5 3 ####[facility] [place] [address], [facility] Neutrophils/100 WBC (Bld) 62.9 % Normal 40.0-72.0 [facility] Comment on above: Performed By: #### 5 0103 ####[facility] [facility].[address] Nucleated RBC/100 WBC (Bld) [Ratio] 0 % Normal 0-0 [facility] Comment on above: Performed By: #### 5 0103 ####[facility] [facility] [place] [address], [facility] PLAT CNT 387 10*3/uL Normal 150-400 The [facility] Comment on above: Performed By: #### 5 0103 ####[facility] RBC (Bld) [#/Vol] 3.01 10*6/uL Low 4.20-5.70 The [facility] Comment on above: Performed By: #### 5 0103 ####[facility] [facility].[address] WBC (Bld) [#/Vol] 8.82 10*3/uL Normal 4.00-10.60 [facility] Comment on above: Performed By: #### 5 0103 ####[facility] [facility].[address] CPKon 05-28-2021 CK [Catalytic activity/Vol] 19 U/L Low 30-223 [facility] Comment on above: Performed By: #### 2 5508, 11779, 77755, 55631 ####[facility] [facility].[address] MAGNESIUM BLOODon 05-28-2021 Magnesium [Mass/Vol] 1.9 mg/dL Normal 1.9-2.7 [facility] Comment on above: Order Comment: No: D o not add to previous draw Performed By: #### 2 5508, 41242, 78586, 54854 ####[facility] [facility] [place] [address], [facility] Operative Reporton 1 Operative Report Normal [facility] PHOSPHORUS BLOODon 1 Phosphate [Mass/Vol] 4.5 mg/dL Normal 2.5-5.0 [facility] Comment on above: Performed By: #### 2 5508, 79834, 25282, 69796 ####[facility] [facility] [place] [address], [facility] POC GLUCOSE LABon 05-28-2021 Glucose [Mass/Vol] 120 mg/dL High 70-100 [facility] Comment on above: Performed By: #### 8 5499 ####[facility] [facility] [place] [address], [place] Glucose [Mass/Vol] 130 mg/dL High 70-100 [facility] Comment on above: Performed By: #### 8 5499 ####[facility] [facility] [place] [address], [place] Glucose [Mass/Vol] 117 mg/dL High 70-100 [facility] Comment on above: Performed By: #### 8 5499 ####[facility] [facility] [place] [address], [place] Glucose [Mass/Vol] 175 mg/dL High 70-100 [facility] Comment on above: Performed By: #### 8 5499 ####[facility] [facility] [address], [place] Glucose [Mass/Vol] 107 mg/dL High 70-100 [facility] Comment on above: Performed By: #### 8 5499 ####[facility] [place] [address], [place] BASIC METABOLIC PANELon Calcium [Mass/Vol] 8.4 mg/dL Low 8.6-10.3 [facility] Comment on above: Order Comment: No: D o not add to previous draw Performed By: #### 0 0071, 22634, 91954 ####[facility] [place] [address], [facility] Chloride [Moles/Vol] 99 mmol/L Normal 98-107 [facility] Comment on above: Order Comment: No: D o not add to previous draw Performed By: #### 0 0071, 11602, 96948 ####[facility] [place] [address], [facility] CO2 [Moles/Vol] 29 mmol/L Normal 21-31 [facility] Comment on above: Order Comment: No: D o not add to previous draw Performed By: #### 0 0071, , 04227 ####[facility] [place] [address], [facility] Creatinine [Mass/Vol] 1.78 mg/dL High 0.70-1.30 [facility] Comment on above: Order Comment: No: D o not add to previous draw Performed By: #### 0 0071, , 65128 ####[facility] eGFR- 45 ml/min/1.73sq m Abnormal >60 The [facility] Comment on above: Order Comment: No: D o not add to previous draw Result Comment: Calc ulation may not be valid for patients over 70 years Performed By: #### 0 0071, 21394, 13691 ####[facility] [place] [address], [facility] eGFR- non- 37 ml/min/1.73sq m Abnormal >60 [facility] Comment on above: Order Comment: No: D o not add to previous draw Result Comment: Calc ulation may not be valid for patients over 70 years Performed By: #### 0 0071, 01836, 98453 ####[facility] [place] [address], [place] Glucose [Mass/Vol] 96 mg/dL Normal 70-100 [facility] Comment on above: Order Comment: No: D o not add to previous draw Performed By: #### 0 0071, 73579, 17399 ####[facility] [place] [address], [place] Potassium [Moles/Vol] 4.7 mmol/L Normal 3.5-5.1 [facility] Comment on above: Order Comment: No: D o not add to previous draw Performed By: #### 0 0071, , 65097 ####[facility] [place] [address], [place] Sodium [Moles/Vol] 133 mmol/L Low 136-145 [facility] Comment on above: Order Comment: No: D o not add to previous draw Performed By: #### 0 0071, , 77139 ####[facility] [facility] [place] [address], [facility] Urea nitrogen [Mass/Vol] 33 mg/dL High 7-25 [facility] Comment on above: Order Comment: No: D o not add to previous draw Performed By: #### 0 0071, , 13303 ####[facility] [place] [address], [place] C REACTIVE PROTEINon 021 CRP [Mass/Vol] 47.2 mg/L High 0.0-7.0 The [facility] Comment on above: Order Comment: Yes: Add to Previous draw if able Performed By: #### 6 1405 ####[facility] [place] [address], [place] CBC COMPLETE BLOOD COUNTon 1 Erythrocyte distribution width (RBC) [Ratio] 15.5 % High 11.5-15.0 The [facility] Comment on above: Order Comment: No: D o not add to previous drawNurse draw Performed By: #### 5 6506, 99743 ####[facility] Hematocrit (Bld) [Volume fraction] 24.7 % Low 39.0-50.0 The [facility] Comment on above: Order Comment: No: D o not add to previous drawNurse draw Performed By: #### 5 6506, 17914 ####[facility] [facility].[address] Hemoglobin (Bld) [Mass/Vol] 7.7 g/dL Low 13.0-17.0 The [facility] Comment on above: Order Comment: No: D o not add to previous drawNurse draw Performed By: #### 5 962, 10895 ####[facility] MCH (RBC) [Entitic mass] 28.5 pg Normal 27.0-33.0 The [facility] Comment on above: Order Comment: No: D o not add to previous drawNurse draw Performed By: #### 5 0116, 36599 ####[facility] [facility].[address] MCHC (RBC) [Mass/Vol] 31.2 g/dL Low 32.0-35.0 The [facility] Comment on above: Order Comment: No: D o not add to previous drawNurse draw Performed By: #### 5 7306, 40684 ####[facility] [facility] [place] [address], [facility] MCV (RBC) [Entitic vol] 91.5 fL Normal 82.0-98.0 [facility] Comment on above: Order Comment: No: D o not add to previous drawNurse draw Performed By: #### 5 089, 24504 ####[facility] [facility].[address] Nucleated RBC/100 WBC (Bld) [Ratio] 0 % Normal 0-0 [facility] Comment on above: Order Comment: No: D o not add to previous drawNurse draw Performed By: #### 5 6506, 46897 ####[facility] [facility] [place] [address], [facility] PLAT CNT 332 10*3/uL Normal 150-400 The [facility] Comment on above: Order Comment: No: D o not add to previous drawNurse draw Performed By: #### 5 6506, 20884 ####[place] [address] [facility].[address] RBC (Bld) [#/Vol] 2.70 10*6/uL Low 4.20-5.70 The [facility] Comment on above: Order Comment: No: D o not add to previous drawNurse draw Performed By: #### 5 6506, 59591 ####[facility] [facility].[address] WBC (Bld) [#/Vol] 7.87 10*3/uL Normal 4.00-10.60 The [facility] Comment on above: Order Comment: No: D o not add to previous drawNurse draw Performed By: #### 5 6506, 52571 ####[facility] [facility].[address] MAGNESIUM BLOODon 05-27-2021 Magnesium [Mass/Vol] 2.1 mg/dL Normal 1.9-2.7 The [facility] Comment on above: Order Comment: No: D o not add to previous draw Performed By: #### 0 0071, 40742, 18646 ####[facility] [facility] [place] [address], [facility] POC GLUCOSE LABon 05-27-2021 Glucose [Mass/Vol] 134 mg/dL High 70-100 The [facility] Comment on above: Performed By: #### 8 5499 ####[facility] [facility] [place] [address], [facility] Glucose [Mass/Vol] 109 mg/dL High 70-100 The [facility] Comment on above: Performed By: #### 8 5499 ####[facility] [facility] [place] [address], [facility] Glucose [Mass/Vol] 151 mg/dL High 70-100 [facility] Comment on above: Performed By: #### 8 5499 ####[facility] [facility] [place] [address], [facility] Glucose [Mass/Vol] 114 mg/dL High 70-100 [facility] Comment on above: Performed By: #### 8 5499 ####[facility] [facility].[address] PORTABLE CHEST 1 VIEWon 10-0 PORTABLE CHEST 1 VIEW Normal The [facility] Comment on above: Order Comment: evalu ate for Atelectasis RBC'S 1 UNITon 05-27-2021 CROSSMATCH INTERP 1 COMP Normal The [facility] Comment on above: Performed By: #### 8 6001 ####[facility] [facility].[address] PRODUCT CODE 1 E0336 Normal The [facility] Comment on above: Performed By: #### 8 6001 ####[facility] [facility].[address] PRODUCT STATUS 1 PT Normal The [facility] Comment on above: Result Comment: Resu lt changed by IF on 05/27/2021 11:45. The previous value was XM.Result changed by IF on 05/28/2021 00:30. The previous value was IS. Performed By: #### 8 6001 ####[facility] [place] [address], [facility] UNIT ABO 1 O Normal [facility] Comment on above: Performed By: #### 8 6001 ####[facility] UNIT ID 1 [id number] Normal The [facility] Comment on above: Performed By: #### 8 6001 ####[facility] UNIT RH 1 Negative Normal The [facility] Comment on above: Performed By: #### 8 6001 ####[facility] SEDIMENTATION RATEon 021 SED RATE 48 mm/hr High 0-10 [facility] Comment on above: Performed By: #### 5 6506, 44889 ####[facility] VANCOMYCIN RANDOMon 05-27-20 21 VANCOMYCIN RAND 12.2 mcg/mL Normal The [facility] Comment on above: Performed By: #### 0 0071, 19785, 97631 ####[facility] BASIC METABOLIC PANELon 10-0 Calcium [Mass/Vol] 8.2 mg/dL Low 8.6-10.3 [facility] Comment on above: Order Comment: No: D o not add to previous draw Performed By: #### 1 0070, 57983 ####[facility] Chloride [Moles/Vol] 98 mmol/L Normal 98-107 The [facility] Comment on above: Order Comment: No: D o not add to previous draw Performed By: #### 1 0070, 27114 ####[facility] [place] [address], [facility] CO2 [Moles/Vol] 30 mmol/L Normal 21-31 [facility] Comment on above: Order Comment: No: D o not add to previous draw Performed By: #### 1 69, 25834 ####[facility] [place] [address], [facility] Creatinine [Mass/Vol] 1.78 mg/dL High 0.70-1.30 [facility] Comment on above: Order Comment: No: D o not add to previous draw Performed By: #### 1 69, 51005 ####[facility] [place] [address], [facility] eGFR- 45 ml/min/1.73sq m Abnormal >60 The [facility] Comment on above: Order Comment: No: D o not add to previous draw Result Comment: Calc ulation may not be valid for patients over 70 years Performed By: #### 1 69, 45148 ####[facility] [facility] [place] [address], [facility] eGFR- non- 37 ml/min/1.73sq m Abnormal >60 The [facility] Comment on above: Order Comment: No: D o not add to previous draw Result Comment: Calc ulation may not be valid for patients over 70 years Performed By: #### 1 69, 29052 ####[facility] [place] [address], [place] Glucose [Mass/Vol] 97 mg/dL Normal 70-100 [facility] Comment on above: Order Comment: No: D o not add to previous draw Performed By: #### 1 0, 65294 ####[facility] [place] [address], [place] Potassium [Moles/Vol] 4.8 mmol/L Normal 3.5-5.1 [facility] Comment on above: Order Comment: No: D o not add to previous draw Performed By: #### 1 69, 49860 ####[facility] [place] [address], [facility] Sodium [Moles/Vol] 131 mmol/L Low 136-145 The [facility] Comment on above: Order Comment: No: D o not add to previous draw Performed By: #### 1 69, 92461 ####[facility] Urea nitrogen [Mass/Vol] 35 mg/dL High 7-25 [facility] Comment on above: Order Comment: No: D o not add to previous draw Performed By: #### 1 69, 67484 ####[facility] [facility].[address] CBC COMPLETE BLOOD COUNTon Erythrocyte distribution width (RBC) [Ratio] 15.4 % High 11.5-15.0 [facility] Comment on above: Order Comment: No: D o not add to previous drawNurse draw Performed By: #### 5 0608 ####[facility] [facility].[address] Hematocrit (Bld) [Volume fraction] 24.3 % Low 39.0-50.0 [facility] Comment on above: Order Comment: No: D o not add to previous drawNurse draw Performed By: #### 5 0608 ####[facility] [place] [address], [facility] Hemoglobin (Bld) [Mass/Vol] 7.9 g/dL Low 13.0-17.0 [facility] Comment on above: Order Comment: No: D o not add to previous drawNurse draw Performed By: #### 5 0608 ####[facility] MCH (RBC) [Entitic mass] 28.6 pg Normal 27.0-33.0 [facility] Comment on above: Order Comment: No: D o not add to previous drawNurse draw Performed By: #### 5 0608 ####[facility] MCHC (RBC) [Mass/Vol] 32.5 g/dL Normal 32.0-35.0 [facility] Comment on above: Order Comment: No: D o not add to previous drawNurse draw Performed By: #### 5 0608 ####[address] MCV (RBC) [Entitic vol] 88.0 fL Normal 82.0-98.0 [facility] Comment on above: Order Comment: No: D o not add to previous drawNurse draw Performed By: #### 5 0608 ####[address] Nucleated RBC/100 WBC (Bld) [Ratio] 0 % Normal 0-0 [facility] Comment on above: Order Comment: No: D o not add to previous drawNurse draw Performed By: #### 5 0608 ####[address] PLAT CNT 320 10*3/uL Normal 150-400 The [facility] Comment on above: Order Comment: No: D o not add to previous drawNurse draw Performed By: #### 5 0608 ####[facility] [place] [address] RBC (Bld) [#/Vol] 2.76 10*6/uL Low 4.20-5.70 The [facility] Comment on above: Order Comment: No: D o not add to previous drawNurse draw Performed By: #### 5 0608 ####[facility] [facility] [place] [address], [facility] WBC (Bld) [#/Vol] 7.52 10*3/uL Normal 4.00-10.60 The [facility] Comment on above: Order Comment: No: D o not add to previous drawNurse draw Performed By: #### 5 0608 ####[facility] [facility] [place] [address], [facility] MAGNESIUM BLOODon 05-26-2021 Magnesium [Mass/Vol] 2.1 mg/dL Normal 1.9-2.7 [facility] Comment on above: Order Comment: No: D o not add to previous draw Performed By: #### 1 0070, 89769 ####[facility] [facility] [place] [address], [facility] POC GLUCOSE LABon 05-26-2021 Glucose [Mass/Vol] 138 mg/dL High 70-100 The [facility] Comment on above: Performed By: #### 8 5499 ####[facility] [facility] [place] [address], [facility] Glucose [Mass/Vol] 119 mg/dL High 70-100 [facility] Comment on above: Performed By: #### 8 5499 ####[facility] [facility] [place] [address], [facility] Glucose [Mass/Vol] 118 mg/dL High 70-100 [facility] Comment on above: Performed By: #### 8 5499 ####[facility] [facility] [place] [address], [facility] PORTABLE CHEST 1 VIEWon PORTABLE CHEST 1 VIEW Normal The [facility] Comment on above: Order Comment: evalu ate for Atelectasis BASIC METABOLIC PANELon Calcium [Mass/Vol] 8.1 mg/dL Low 8.6-10.3 [facility] Comment on above: Order Comment: No: D o not add to previous draw Performed By: #### 3 0953, 76066, 20695 ####[facility] [place] [address], [facility] Chloride [Moles/Vol] 95 mmol/L Low 98-107 [facility] Comment on above: Order Comment: No: D o not add to previous draw Performed By: #### 3 0953, 64636, 21910 ####[facility] [place] [address], [facility] CO2 [Moles/Vol] 27 mmol/L Normal 21-[address] [facility] Comment on above: Order Comment: No: D o not add to previous draw Performed By: #### 3 0953, 37569, 66398 ####[facility] [facility] [place] [address], [facility] Creatinine [Mass/Vol] 2.13 mg/dL High 0.70-1.30 [facility] Comment on above: Order Comment: No: D o not add to previous draw Performed By: #### 3 0953, 04335, 12396 ####[facility] [facility].[address] eGFR- 37 ml/min/1.73sq m Abnormal >60 The [facility] Comment on above: Order Comment: No: D o not add to previous draw Result Comment: Calc ulation may not be valid for patients over 70 years Performed By: #### 3 0953, 66682, 58559 ####[facility] [facility].[address] eGFR- non- 30 ml/min/1.73sq m Abnormal >60 The [facility] Comment on above: Order Comment: No: D o not add to previous draw Result Comment: Calc ulation may not be valid for patients over 70 years Performed By: #### 3 0953, 28530, 91645 ####[facility] [place] [address], [facility] Glucose [Mass/Vol] 122 mg/dL High 70-100 [facility] Comment on above: Order Comment: No: D o not add to previous draw Performed By: #### 3 0953, 73898, 47406 ####[facility] [id number], [facility] Potassium [Moles/Vol] 4.8 mmol/L Normal 3.5-5.1 [facility] Comment on above: Order Comment: No: D o not add to previous draw Performed By: #### 3 0953, 92532, 40349 ####[facility] [facility] [place] [address], [facility] Sodium [Moles/Vol] 128 mmol/L Low 136-145 [facility] Comment on above: Order Comment: No: D o not add to previous draw Performed By: #### 3 0953, 80910, 84887 ####[facility] [facility] [place] [address], [facility] Urea nitrogen [Mass/Vol] 35 mg/dL High 7-25 [facility] Comment on above: Order Comment: No: D o not add to previous draw Performed By: #### 3 0953, 46834, 93394 ####[facility] [facility] [place] [address], [facility] CBC COMPLETE BLOOD COUNTon Erythrocyte distribution width (RBC) [Ratio] 15.8 % High 11.5-15.0 [facility] Comment on above: Order Comment: No: D o not add to previous draw Performed By: #### 5 0608 ####[facility] [place] [address], [facility] Hematocrit (Bld) [Volume fraction] 22.3 % Low 39.0-50.0 [facility] Comment on above: Order Comment: No: D o not add to previous draw Performed By: #### 5 0608 ####[facility] Hemoglobin (Bld) [Mass/Vol] 7.3 g/dL Low 13.0-17.0 [facility] Comment on above: Order Comment: No: D o not add to previous draw Performed By: #### 5 0608 ####[facility] [place] [address] MCH (RBC) [Entitic mass] 28.7 pg Normal 27.0-33.0 [facility] Comment on above: Order Comment: No: D o not add to previous draw Performed By: #### 5 0608 ####[place] [address] [address] MCHC (RBC) [Mass/Vol] 32.7 g/dL Normal 32.0-35.0 [facility] Comment on above: Order Comment: No: D o not add to previous draw Performed By: #### 5 0608 ####[address] MCV (RBC) [Entitic vol] 87.8 fL Normal 82.0-98.0 [facility] Comment on above: Order Comment: No: D o not add to previous draw Performed By: #### 5 0608 ####[address] Nucleated RBC/100 WBC (Bld) [Ratio] 0 % Normal 0-0 [facility] Comment on above: Order Comment: No: D o not add to previous draw Performed By: #### 5 0608 ####[address] PLAT CNT 292 10*3/uL Normal 150-400 The [facility] Comment on above: Order Comment: No: D o not add to previous draw Performed By: #### 5 0608 ####[facility] [place] [address], [facility] RBC (Bld) [#/Vol] 2.54 10*6/uL Low 4.20-5.70 [facility] Comment on above: Order Comment: No: D o not add to previous draw Performed By: #### 5 0608 ####[facility] [place] [address], [facility] WBC (Bld) [#/Vol] 8.90 10*3/uL Normal 4.00-10.60 [facility] Comment on above: Order Comment: No: D o not add to previous draw Performed By: #### 5 0608 ####[facility] [facility].[address] HEMATOCRITon 05-25-2021 Hematocrit (Bld) [Volume fraction] 25.1 % Low 39.0-50.0 [facility] Comment on above: Order Comment: No: D o not add to previous draw Performed By: #### 9 2088, 44678 ####[facility] [facility].[address] HEMOGLOBINon 05-25-2021 Hemoglobin (Bld) [Mass/Vol] 8.4 g/dL Low 13.0-17.0 [facility] Comment on above: Order Comment: No: D o not add to previous draw Performed By: #### 9 2088, 80795 ####[facility] [facility] [place] [address], [facility] MAGNESIUM BLOODon 05-25-2021 Magnesium [Mass/Vol] 2.0 mg/dL Normal 1.9-2.7 [facility] Comment on above: Order Comment: No: D o not add to previous draw Performed By: #### 3 0953, 39853, 68210 ####[facility] [id number], [facility] POC GLUCOSE LABon 05-25-2021 Glucose [Mass/Vol] 136 mg/dL High 70-100 [facility] Comment on above: Performed By: #### 8 5499 ####[facility] [facility] [address], [place] Glucose [Mass/Vol] 115 mg/dL High 70-100 [facility] Comment on above: Performed By: #### 8 5499 ####[facility] [facility] [place] [address], [place] Glucose [Mass/Vol] 72 mg/dL Normal 70-100 [facility] Comment on above: Performed By: #### 8 5499 ####[facility] [facility] [place] [address], [place] Glucose [Mass/Vol] 154 mg/dL High 70-100 [facility] Comment on above: Performed By: #### 8 5499 ####[facility] [facility] [place] [address], [facility] PORTABLE CHEST 1 VIEWon PORTABLE CHEST 1 VIEW Normal The [facility] Comment on above: Order Comment: Evalu ate for Effusion RBC'S 2 UNITSon 05-25-2021 CROSSMATCH INTERP 1 COMP Normal The [facility] Comment on above: Performed By: #### 8 6002 ####[facility] [facility] [place] [address], [place] CROSSMATCH INTERP 2 COMP Normal [facility] Comment on above: Performed By: #### 8 6002 ####[facility] [facility] [place] [address], [place] PRODUCT CODE 1 E0686 Normal The [facility] Comment on above: Performed By: #### 8 6002 ####[facility] [facility], [place] [address] [place] [address] PRODUCT CODE 2 E0336 Normal The [facility] Comment on above: Performed By: #### 8 6002 ####[facility] [facility] [place] [address], [facility] PRODUCT STATUS 1 PT Normal The [facility] Comment on above: Result Comment: Resu lt changed by IF on 05/25/2021 13:50. The previous value was XM.Result changed by IF on 05/26/2021 00:30. The previous value was IS. Performed By: #### 8 6002 ####[facility] [facility] [place] [address], [facility] PRODUCT STATUS 2 PT Normal The [facility] Comment on above: Result Comment: Resu lt changed by IF on 05/25/2021 09:50. The previous value was XM.Result changed by IF on 05/26/2021 00:30. The previous value was IS. Performed By: #### 8 6002 ####[facility] [facility] [place] [address], [facility] UNIT ABO 1 O Normal [facility] Comment on above: Performed By: #### 8 6002 ####[facility] [facility] [place] [address], [facility] UNIT ABO 2 O Normal [facility] Comment on above: Performed By: #### 8 6002 ####[facility] [facility] [place] [address], [facility] UNIT ID 1 [id number] [facility] Comment on above: Performed By: #### 8 6002 ####[facility] [facility] [place] [address], [facility] UNIT ID 2 [id number] Normal The [facility] Comment on above: Performed By: #### 8 6002 ####[facility] [place] [address], [facility] UNIT RH 1 Positive Normal The [facility] Comment on above: Performed By: #### 8 6002 ####[facility] [place] [address], [facility] UNIT RH 2 Positive Normal [facility] Comment on above: Performed By: #### 8 6002 ####[facility] [place] [address], [facility] VANCOMYCIN TIMEDon VANCOMYCIN TIMED 24.3 mcg/mL Normal The [facility] Comment on above: Performed By: #### 3 0953, 14279, 48896 ####[facility] [place] [address], [facility] BASIC METABOLIC PANELon 10-0 Calcium [Mass/Vol] 7.8 mg/dL Low 8.6-10.3 [facility] Comment on above: Order Comment: No: D o not add to previous draw Performed By: #### 0 0071, 41275, 83495, 14578 ####[facility] [place] [address], [facility] Chloride [Moles/Vol] 97 mmol/L Low 98-107 [facility] Comment on above: Order Comment: No: D o not add to previous draw Performed By: #### 0 0071, 13425, 71309, 42269 ####[facility] [place] [address], [place] CO2 [Moles/Vol] 30 mmol/L Normal 21-[address] [facility] Comment on above: Order Comment: No: D o not add to previous draw Performed By: #### 0 0071, 95605, 69987, 64647 ####[facility] [place] [address], [facility] Creatinine [Mass/Vol] 1.70 mg/dL High 0.70-1.30 [facility] Comment on above: Order Comment: No: D o not add to previous draw Performed By: #### 0 0071, 11307, 60355, 11370 ####[facility] [place] [address], [facility] eGFR- 48 ml/min/1.73sq m Abnormal >60 The [facility] Comment on above: Order Comment: No: D o not add to previous draw Result Comment: Calc ulation may not be valid for patients over 70 years Performed By: #### 0 0071, 03067, 69043, 58712 ####[facility] [facility] eGFR- non- 39 ml/min/1.73sq m Abnormal >60 The [facility] Comment on above: Order Comment: No: D o not add to previous draw Result Comment: Calc ulation may not be valid for patients over 70 years Performed By: #### 0 0071, 56770, 83810, 89490 ####[facility] [facility] [place] [address], [facility] Glucose [Mass/Vol] 132 mg/dL High 70-100 The [facility] Comment on above: Order Comment: No: D o not add to previous draw Performed By: #### 0 0071, 70695, 72126, 53826 ####[facility] [facility] [place] [address], [facility] Potassium [Moles/Vol] 5.2 mmol/L High 3.5-5.1 [facility] Comment on above: Order Comment: No: D o not add to previous draw Performed By: #### 0 0071, 41145, 10531, 41303 ####[facility] [place] [address], [facility] Sodium [Moles/Vol] 131 mmol/L Low 136-145 [facility] Comment on above: Order Comment: No: D o not add to previous draw Performed By: #### 0 0071, 31586, 92268, 11726 ####[facility] [facility] [place] [address], [facility] Urea nitrogen [Mass/Vol] 27 mg/dL High 7-25 [facility] Comment on above: Order Comment: No: D o not add to previous draw Performed By: #### 0 0071, 01900, 57270, 97986 ####[facility] [facility] CBC COMPLETE BLOOD COUNTon Erythrocyte distribution width (RBC) [Ratio] 14.5 % Normal 11.5-15.0 [facility] Comment on above: Order Comment: No: D o not add to previous draw Performed By: #### 5 0608 ####[facility] [facility] Hematocrit (Bld) [Volume fraction] 23.1 % Low 39.0-50.0 [facility] Comment on above: Order Comment: No: D o not add to previous draw Performed By: #### 5 0608 ####[facility] [facility] [place] [address], [facility] Hemoglobin (Bld) [Mass/Vol] 7.4 g/dL Low 13.0-17.0 [facility] Comment on above: Order Comment: No: D o not add to previous draw Performed By: #### 5 0608 ####[facility] [facility] [address], [facility] MCH (RBC) [Entitic mass] 28.9 pg Normal 27.0-33.0 [facility] Comment on above: Order Comment: No: D o not add to previous draw Performed By: #### 5 0608 ####[facility], [place] [address] MCHC (RBC) [Mass/Vol] 32.0 g/dL Normal 32.0-35.0 [facility] Comment on above: Order Comment: No: D o not add to previous draw Performed By: #### 5 0608 ####[facility] MCV (RBC) [Entitic vol] 90.2 fL Normal 82.0-98.0 [facility] Comment on above: Order Comment: No: D o not add to previous draw Performed By: #### 5 0608 ####[facility] [facility].[address] Nucleated RBC/100 WBC (Bld) [Ratio] 0 % Normal 0-0 [facility] Comment on above: Order Comment: No: D o not add to previous draw Performed By: #### 5 0608 ####[facility] [facility].[address] PLAT CNT 312 10*3/uL Normal 150-400 [facility] Comment on above: Order Comment: No: D o not add to previous draw Performed By: #### 5 0608 ####[address] RBC (Bld) [#/Vol] 2.56 10*6/uL Low 4.20-5.70 The [facility] Comment on above: Order Comment: No: D o not add to previous draw Performed By: #### 5 0608 ####[facility] [facility] [place] [address], [facility] WBC (Bld) [#/Vol] 10.23 10*3/uL Normal 4.00-10.60 [facility] Comment on above: Order Comment: No: D o not add to previous draw Performed By: #### 5 0608 ####[facility] [place] [address], [place] MAGNESIUM BLOODon 05-24-2021 Magnesium [Mass/Vol] 1.8 mg/dL Low 1.9-2.7 [facility] Comment on above: Order Comment: No: D o not add to previous draw Performed By: #### 0 0071, 91625, 15564, 87495 ####[facility] [place] [address], [place] PHOSPHORUS BLOODon Phosphate [Mass/Vol] 5.0 mg/dL Normal 2.5-5.0 [facility] Comment on above: Order Comment: No: D o not add to previous draw Performed By: #### 0 0071, 17094, 68835, 23921 ####[facility] [facility] [place] [address], [place] POC GLUCOSE LABon 05-24-2021 Glucose [Mass/Vol] 156 mg/dL High 70-100 [facility] Comment on above: Performed By: #### 8 5499 ####[facility] [facility] [place] [address], [place] Glucose [Mass/Vol] 129 mg/dL High 70-100 [facility] Comment on above: Performed By: #### 8 5499 ####[facility] [facility] [place] [address], [place] Glucose [Mass/Vol] 188 mg/dL High 70-100 [facility] Comment on above: Performed By: #### 8 5499 ####[facility] [place] [address], [place] Glucose [Mass/Vol] 141 mg/dL High 70-100 [facility] Comment on above: Performed By: #### 8 5499 ####[facility] [place] [address], [place] RBC'S 1 UNITon 05-24-2021 CROSSMATCH INTERP 1 COMP Normal [facility] Comment on above: Performed By: #### 8 6001 ####[facility] [place] [address], [facility] PRODUCT CODE 1 E0332 Normal The [facility] Comment on above: Performed By: #### 8 6001 ####[facility] [place] [address], [facility] PRODUCT STATUS 1 PT Normal The [facility] Comment on above: Result Comment: Resu lt changed by IF on 05/24/2021 11:33. The previous value was XM.Result changed by IF on 05/25/2021 00:30. The previous value was IS. Performed By: #### 8 6001 ####[facility] [place] [address], [facility] UNIT ABO 1 O Normal [facility] Comment on above: Performed By: #### 8 6001 ####[facility] [place] [address], [facility] UNIT ID 1 [id number] Normal The [facility] Comment on above: Performed By: #### 8 6001 ####[facility] [place] [address], [facility] UNIT RH 1 Positive Normal [facility] Comment on above: Performed By: #### 8 6001 ####[facility] [place] [address], [facility] TYPE AND SCREENon 05-24-2021 ABO INTERPRETATION O Normal [facility] Comment on above: Performed By: #### 6 2586 ####[facility] [place] [address], [facility] RH INTERPRETATION Positive Normal The [facility] Comment on above: Performed By: #### 6 2586 ####[facility] VANCOMYCIN TIMEDon VANCOMYCIN TIMED 42.1 mcg/mL Normal [facility] Comment on above: Performed By: #### 0 0071, 71394, 18158, 65144 ####[facility] [facility].[address] BASIC METABOLIC PANELon 09-3 Calcium [Mass/Vol] 8.7 mg/dL Normal 8.6-10.3 [facility] Comment on above: Order Comment: No: D o not add to previous draw Performed By: #### 4 1000, 68557, 82671 ####[place] [address] Chloride [Moles/Vol] 97 mmol/L Low 98-107 [facility] Comment on above: Order Comment: No: D o not add to previous draw Performed By: #### 4 1000, 82722, 60395 ####[facility] CO2 [Moles/Vol] 32 mmol/L High 21-[address] [facility] Comment on above: Order Comment: No: D o not add to previous draw Performed By: #### 4 1000, 72131, 47947 ####[place] [address] Creatinine [Mass/Vol] 1.31 mg/dL High 0.70-1.30 [facility] Comment on above: Order Comment: No: D o not add to previous draw Performed By: #### 4 1000, 05599, 10345 ####[address] eGFR- non- 53 ml/min/1.73sq m Abnormal >60 [facility] Comment on above: Order Comment: No: D o not add to previous draw Result Comment: Calc ulation may not be valid for patients over 70 years Performed By: #### 4 1000, 66339, 99024 ####[facility] [place] [address], [facility] GFR/1.73 sq M.predicted among blacks MDRD (S/P/Bld) [Vol rate/Area] mL/min/{1.73_m2} Normal >60 [facility] Comment on above: Order Comment: No: D o not add to previous draw Result Comment: Calc ulation may not be valid for patients over 70 years Performed By: #### 4 1000, 73187, 83492 ####[facility] [place] [address], [facility] Glucose [Mass/Vol] 105 mg/dL High 70-100 [facility] Comment on above: Order Comment: No: D o not add to previous draw Performed By: #### 4 999, 69666, 96400 ####[facility] [facility] [place] [address], [place] Potassium [Moles/Vol] 4.0 mmol/L Normal 3.5-5.1 [facility] Comment on above: Order Comment: No: D o not add to previous draw Performed By: #### 4 1000, 97985, 01324 ####[facility] [place] [address], [place] Sodium [Moles/Vol] 133 mmol/L Low 136-145 [facility] Comment on above: Order Comment: No: D o not add to previous draw Performed By: #### 4 1000, 27886, 80695 ####[facility] [place] [address], [place] Urea nitrogen [Mass/Vol] 24 mg/dL Normal 7-25 [facility] Comment on above: Order Comment: No: D o not add to previous draw Performed By: #### 4 1000, 75104, 55833 ####[facility] CBC COMPLETE BLOOD COUNTon 0 05-23-2021 Erythrocyte distribution width (RBC) [Ratio] 14.3 % Normal 11.5-15.0 [facility] Comment on above: Order Comment: No: D o not add to previous draw Performed By: #### 5 0608 ####[address] Hematocrit (Bld) [Volume fraction] 29.4 % Low 39.0-50.0 [facility] Comment on above: Order Comment: No: D o not add to previous draw Performed By: #### 5 0608 ####[address] Hemoglobin (Bld) [Mass/Vol] 9.4 g/dL Low 13.0-17.0 [facility] Comment on above: Order Comment: No: D o not add to previous draw Performed By: #### 5 0608 ####[address] MCH (RBC) [Entitic mass] 28.5 pg Normal 27.0-33.0 [facility] Comment on above: Order Comment: No: D o not add to previous draw Performed By: #### 5 0608 ####[address] MCHC (RBC) [Mass/Vol] 32.0 g/dL Normal 32.0-35.0 [facility] Comment on above: Order Comment: No: D o not add to previous draw Performed By: #### 5 0608 ####[address] MCV (RBC) [Entitic vol] 89.1 fL Normal 82.0-98.0 [facility] Comment on above: Order Comment: No: D o not add to previous draw Performed By: #### 5 0608 ####[facility] [facility] [place] [address], [facility] Nucleated RBC/100 WBC (Bld) [Ratio] 0 % Normal 0-0 [facility] Comment on above: Order Comment: No: D o not add to previous draw Performed By: #### 5 0608 ####[facility] [facility] [place] [address], [facility] PLAT CNT 342 10*3/uL Normal 150-400 The [facility] Comment on above: Order Comment: No: D o not add to previous draw Performed By: #### 5 0608 ####[facility] [facility] [place] [address], [facility] RBC (Bld) [#/Vol] 3.30 10*6/uL Low 4.20-5.70 [facility] Comment on above: Order Comment: No: D o not add to previous draw Performed By: #### 5 0608 ####[facility] [facility] [place] [address], [facility] WBC (Bld) [#/Vol] 7.22 10*3/uL Normal 4.00-10.60 [facility] Comment on above: Order Comment: No: D o not add to previous draw Performed By: #### 5 0608 ####[facility] [facility] [place] [address], [facility] MAGNESIUM BLOODon 05-23-2021 Magnesium [Mass/Vol] 1.9 mg/dL Normal 1.9-2.7 [facility] Comment on above: Order Comment: No: D o not add to previous draw Performed By: #### 4 1000, 49407, 22209 ####[facility] [facility] [place] [address], [facility] PHOSPHORUS BLOODon Phosphate [Mass/Vol] 3.4 mg/dL Normal 2.5-5.0 [facility] Comment on above: Order Comment: No: D o not add to previous draw Performed By: #### 4 1000, 98719, 14428 ####[facility] [place] [address], [place] POC GLUCOSE LABon 05-23-2021 Glucose [Mass/Vol] 141 mg/dL High 70-100 [facility] Comment on above: Performed By: #### 8 5499 ####[facility] [place] [address], [place] Glucose [Mass/Vol] 147 mg/dL High 70-100 [facility] Comment on above: Performed By: #### 8 5499 ####[facility] [place] [address], [place] Glucose [Mass/Vol] 138 mg/dL High 70-100 [facility] Comment on above: Performed By: #### 8 5499 ####[facility] [place] [address], [place] Glucose [Mass/Vol] 112 mg/dL High 70-100 [facility] Comment on above: Performed By: #### 8 5499 ####[facility] [place] [address], [place] Glucose [Mass/Vol] 121 mg/dL High 70-100 [facility] Comment on above: Performed By: #### 8 5499 ####[facility] [place] [address], [place] POC SARS COV2 ANTIGEN NEGATI VEon 05-23-2021 POC SARS COV2 ANTIGEN NEG Negative Normal NEGATIVE [facility] Comment on above: Result Comment: Nega tive [...] of clinicalsigns and symptoms consistent with COVID-19.The varinodeW COVID-19 Ag Card is a lateral flow immunoassay intended forthe qualitative detection of nucleocapsid protein antigen [id number] in direct nasal swabs from individuals within [...] Certificate ofAccreditation. Performed By: #### 3 1977 ####[facility] PORTABLE CHEST 1 VIEWon 04-26 PORTABLE CHEST 1 VIEW Normal [facility] Comment on above: Order Comment: evalu ate for Atelectasis VANCOMYCIN RANDOMon 05-23-20 VANCOMYCIN RAND 19.6 mcg/mL Normal [facility] Comment on above: Order Comment: No: D o not add to previous draw Performed By: #### 9 4980 ####[facility] BASIC METABOLIC PANELon 04-25 Calcium [Mass/Vol] 8.6 mg/dL Normal 8.6-10.3 [facility] Comment on above: Order Comment: No: D o not add to previous draw Performed By: #### 0 0071, 21689, 57171 ####[facility] Chloride [Moles/Vol] 98 mmol/L Normal 98-107 [facility] Comment on above: Order Comment: No: D o not add to previous draw Performed By: #### 0 0071, 00029, 40191 ####[facility] [place] [address], [facility] CO2 [Moles/Vol] 33 mmol/L High 21-31 [facility] Comment on above: Order Comment: No: D o not add to previous draw Performed By: #### 0 0071, 99478, 15412 ####[facility] [place] [address], [facility] Creatinine [Mass/Vol] 1.21 mg/dL Normal 0.70-1.30 [facility] Comment on above: Order Comment: No: D o not add to previous draw Performed By: #### 0 0071, , 87683 ####[facility] [facility].[address] eGFR- non- 58 ml/min/1.73sq m Abnormal >60 [facility] Comment on above: Order Comment: No: D o not add to previous draw Result Comment: Calc ulation may not be valid for patients over 70 years Performed By: #### 0 0071, , 62942 ####[facility] [facility] [place] [address], [facility] GFR/1.73 sq M.predicted among blacks MDRD (S/P/Bld) [Vol rate/Area] mL/min/{1.73_m2} Normal >60 [facility] Comment on above: Order Comment: No: D o not add to previous draw Result Comment: Calc ulation may not be valid for patients over 70 years Performed By: #### 0 0071, 12091, 97155 ####[facility] [facility] [place] [address], [facility] Glucose [Mass/Vol] 115 mg/dL High 70-100 [facility] Comment on above: Order Comment: No: D o not add to previous draw Performed By: #### 0 0071, 93359, 67722 ####[facility] [place] [address], [facility] Potassium [Moles/Vol] 3.9 mmol/L Normal 3.5-5.1 [facility] Comment on above: Order Comment: No: D o not add to previous draw Performed By: #### 0 0071, 56918, 66368 ####[facility] [place] [address], [facility] Sodium [Moles/Vol] 135 mmol/L Low 136-145 [facility] Comment on above: Order Comment: No: D o not add to previous draw Performed By: #### 0 0071, 38407, 59044 ####[facility] [place] [address], [facility] Urea nitrogen [Mass/Vol] 22 mg/dL Normal 7-25 [facility] Comment on above: Order Comment: No: D o not add to previous draw Performed By: #### 0 0071, 87797, 25618 ####[facility] CBC COMPLETE BLOOD COUNTon 0 05-22-2021 Erythrocyte distribution width (RBC) [Ratio] 14.3 % Normal 11.5-15.0 [facility] Comment on above: Order Comment: No: D o not add to previous draw Performed By: #### 5 0608 ####[facility] [place] [address], [facility] Hematocrit (Bld) [Volume fraction] 24.7 % Low 39.0-50.0 [facility] Comment on above: Order Comment: No: D o not add to previous draw Performed By: #### 5 0608 ####[facility] [place] [address], [facility] Hemoglobin (Bld) [Mass/Vol] 7.6 g/dL Low 13.0-17.0 [facility] Comment on above: Order Comment: No: D o not add to previous draw Performed By: #### 5 0608 ####[facility] MCH (RBC) [Entitic mass] 28.3 pg Normal 27.0-33.0 [facility] Comment on above: Order Comment: No: D o not add to previous draw Performed By: #### 5 0608 ####[facility] MCHC (RBC) [Mass/Vol] 30.8 g/dL Low 32.0-35.0 [facility] Comment on above: Order Comment: No: D o not add to previous draw Performed By: #### 5 0608 ####[place] [address] MCV (RBC) [Entitic vol] 91.8 fL Normal 82.0-98.0 [facility] Comment on above: Order Comment: No: D o not add to previous draw Performed By: #### 5 0608 ####[place] [address] Nucleated RBC/100 WBC (Bld) [Ratio] 0 % Normal 0-0 [facility] Comment on above: Order Comment: No: D o not add to previous draw Performed By: #### 5 0608 ####[facility] [place] [address] PLAT CNT 313 10*3/uL Normal 150-400 [facility] Comment on above: Order Comment: No: D o not add to previous draw Performed By: #### 5 0608 ####[address] RBC (Bld) [#/Vol] 2.69 10*6/uL Low 4.20-5.70 [facility] Comment on above: Order Comment: No: D o not add to previous draw Performed By: #### 5 0608 ####[facility] [place] [address], [facility] WBC (Bld) [#/Vol] 7.75 10*3/uL Normal 4.00-10.60 [facility] Comment on above: Order Comment: No: D o not add to previous draw Performed By: #### 5 0608 ####[facility] [place] [address], [facility] MAGNESIUM BLOODon 05-22-2021 Magnesium [Mass/Vol] 1.9 mg/dL Normal 1.9-2.7 [facility] Comment on above: Order Comment: No: D o not add to previous draw Performed By: #### 0 0071, 92920, 27511 ####[facility] [facility].[address] Operative Reporton Operative Report Normal The [facility] POC GLUCOSE LABon 05-22-2021 Glucose [Mass/Vol] 126 mg/dL High 70-100 [facility] Comment on above: Performed By: #### 8 5499 ####[facility] [place] [address], [facility] Glucose [Mass/Vol] 136 mg/dL High 70-100 [facility] Comment on above: Performed By: #### 8 5499 ####[facility] [facility] [place] [address], [facility] Glucose [Mass/Vol] 156 mg/dL High 70-100 [facility] Comment on above: Performed By: #### 8 5499 ####[facility] [place] [address], [facility] PORTABLE CHEST 1 VIEWon 04-25 PORTABLE CHEST 1 VIEW Normal [facility] Comment on above: Order Comment: Evalu ate for Atelectasis, common RBC'S 1 UNITon 05-22-2021 CROSSMATCH INTERP 1 COMP Normal [facility] Comment on above: Performed By: #### 8 6001 ####[facility] [facility].[address] PRODUCT CODE 1 E0336 Normal The [facility] Comment on above: Performed By: #### 8 6001 ####[facility] [facility].[address] PRODUCT STATUS 1 PT Normal The [facility] Comment on above: Result Comment: Resu lt changed by IF on 05/22/2021 13:33. The previous value was XM.Result changed by IF on 05/23/2021 00:30. The previous value was IS. Performed By: #### 8 6001 ####[facility] [facility].[address] UNIT ABO 1 O Normal [facility] Comment on above: Performed By: #### 8 6001 ####[facility] [facility].[address] UNIT ID 1 [id number] Normal The [facility] Comment on above: Performed By: #### 8 6001 ####[facility] [facility].[address] UNIT RH 1 Positive Normal [facility] Comment on above: Performed By: #### 8 6001 ####[facility] [facility].[address] RBC'S 3 UNITSon 05-22-2021 CROSSMATCH INTERP 1 COMP Normal [facility] Comment on above: Order Comment: Hemog lobin < 9 gm/dl with known cardiac or cerebrovascular disease Performed By: #### 8 6003 ####[facility] [place] [address], [facility] CROSSMATCH INTERP 2 COMP Normal [facility] Comment on above: Order Comment: Hemog lobin < 9 gm/dl with known cardiac or cerebrovascular disease Performed By: #### 8 6003 ####[facility] [place] [address], [facility] CROSSMATCH INTERP 3 COMP Normal [facility] Comment on above: Order Comment: Hemog lobin < 9 gm/dl with known cardiac or cerebrovascular disease Performed By: #### 8 6003 ####[facility] PRODUCT CODE 1 E0336 Normal The [facility] Comment on above: Order Comment: Hemog lobin < 9 gm/dl with known cardiac or cerebrovascular disease Performed By: #### 8 6003 ####[facility] PRODUCT CODE 2 E0685 Normal The [facility] Comment on above: Order Comment: Hemog lobin < 9 gm/dl with known cardiac or cerebrovascular disease Performed By: #### 8 6003 ####[facility] PRODUCT CODE 3 E0336 Normal The [facility] Comment on above: Order Comment: Hemog lobin < 9 gm/dl with known cardiac or cerebrovascular disease Performed By: #### 8 6003 ####[facility] [place] [address], [facility] PRODUCT STATUS 1 PT Normal [facility] Comment on above: Order Comment: Hemog lobin < 9 gm/dl with known cardiac or cerebrovascular disease Result Comment: Resu lt changed by IF on 05/22/2021 17:51. The previous value was XM.Result changed by IF on 05/23/2021 00:30. The previous value was IS. Performed By: #### 8 6003 ####[facility] PRODUCT STATUS 2 RE Normal [facility] Comment on above: Order Comment: Hemog lobin < 9 gm/dl with known cardiac or cerebrovascular disease Result Comment: Resu lt changed by IF on 05/24/2021 07:35. The previous value was XM. Performed By: #### 8 6003 ####[facility] [place] [address], [facility] PRODUCT STATUS 3 RE Normal [facility] Comment on above: Order Comment: Hemog lobin < 9 gm/dl with known cardiac or cerebrovascular disease Result Comment: Resu lt changed by IF on 05/24/2021 07:35. The previous value was XM. Performed By: #### 8 6003 ####[facility] UNIT ABO 1 O Normal [facility] Comment on above: Order Comment: Hemog lobin < 9 gm/dl with known cardiac or cerebrovascular disease Performed By: #### 8 6003 ####[facility] [place] [address], [facility] UNIT ABO 2 O Normal [facility] Comment on above: Order Comment: Hemog lobin < 9 gm/dl with known cardiac or cerebrovascular disease Performed By: #### 8 6003 ####[facility] [place] [address], [facility] UNIT ABO 3 O Normal [facility] Comment on above: Order Comment: Hemog lobin < 9 gm/dl with known cardiac or cerebrovascular disease Performed By: #### 8 6003 ####[facility] UNIT ID 1 [id number] Normal [address] [facility] Comment on above: Order Comment: Hemog lobin < 9 gm/dl with known cardiac or cerebrovascular disease Performed By: #### 8 6003 ####[facility] UNIT ID 2 [id number] Normal The [facility] Comment on above: Order Comment: Hemog lobin < 9 gm/dl with known cardiac or cerebrovascular disease Performed By: #### 8 6003 ####[facility] UNIT ID 3 [id number] Normal [facility] Comment on above: Order Comment: Hemog lobin < 9 gm/dl with known cardiac or cerebrovascular disease Performed By: #### 8 6003 ####[facility] UNIT RH 1 Negative Normal [facility] Comment on above: Order Comment: Hemog lobin < 9 gm/dl with known cardiac or cerebrovascular disease Performed By: #### 8 6003 ####[facility] UNIT RH 2 Positive Normal [facility] Comment on above: Order Comment: Hemog lobin < 9 gm/dl with known cardiac or cerebrovascular disease Performed By: #### 8 6003 ####[facility] UNIT RH 3 Positive Normal [facility] Comment on above: Order Comment: Hemog lobin < 9 gm/dl with known cardiac or cerebrovascular disease Performed By: #### 8 6003 ####[facility] VANCOMYCIN TIMEDon VANCOMYCIN TIMED 19.6 mcg/mL Normal [facility] Comment on above: Performed By: #### 0 0071, 56360, 23040 ####[facility] BASIC METABOLIC PANELon 04-25 Calcium [Mass/Vol] 8.5 mg/dL Low 8.6-10.3 [facility] Comment on above: Order Comment: No: D o not add to previous draw Performed By: #### 1 0070, 80197, 42175 ####[facility] [place] [address], [facility] Chloride [Moles/Vol] 96 mmol/L Low 98-107 [facility] Comment on above: Order Comment: No: D o not add to previous draw Performed By: #### 1 0070, 02450, 03134 ####[facility] [facility] [place] [address], [facility] CO2 [Moles/Vol] 37 mmol/L High 21-31 [facility] Comment on above: Order Comment: No: D o not add to previous draw Performed By: #### 1 0, 58567, 26445 ####[facility] [place] [address], [facility] Creatinine [Mass/Vol] 0.92 mg/dL Normal 0.70-1.30 [facility] Comment on above: Order Comment: No: D o not add to previous draw Performed By: #### 1 0070, 62177, 24559 ####[facility] [place] [address], [facility] GFR/1.73 sq M.predicted among blacks MDRD (S/P/Bld) [Vol rate/Area] mL/min/{1.73_m2} Normal >60 [facility] Comment on above: Order Comment: No: D o not add to previous draw Result Comment: Calc ulation may not be valid for patients over 70 years Performed By: #### 1 0070, 94836, 97534 ####[facility] [place] [address], [place] GFR/1.73 sq M.predicted among non-blacks MDRD (S/P/Bld) [Vol rate/Area] mL/min/{1.73_m2} Normal >60 [facility] Comment on above: Order Comment: No: D o not add to previous draw Result Comment: Calc ulation may not be valid for patients over 70 years Performed By: #### 1 0070, 42696, 40467 ####[facility] [place] [address], [facility] Glucose [Mass/Vol] 117 mg/dL High 70-100 [facility] Comment on above: Order Comment: No: D o not add to previous draw Performed By: #### 1 0070, 80720, 46290 ####[facility] [facility] [place] [address], [facility] Potassium [Moles/Vol] 3.9 mmol/L Normal 3.5-5.1 [facility] Comment on above: Order Comment: No: D o not add to previous draw Performed By: #### 1 0070, 06429, 37673 ####[facility] [place] [address], [facility] Sodium [Moles/Vol] 134 mmol/L Low 136-145 [facility] Comment on above: Order Comment: No: D o not add to previous draw Performed By: #### 1 0070, 68496, 34090 ####[facility] [facility] [place] [address], [facility] Urea nitrogen [Mass/Vol] 17 mg/dL Normal 7-25 [facility] Comment on above: Order Comment: No: D o not add to previous draw Performed By: #### 1 0070, 24865, 94339 ####[facility] [facility] [place] [address], [facility] CBC COMPLETE BLOOD COUNTon 0 05-21-2021 Erythrocyte distribution width (RBC) [Ratio] 14.3 % Normal 11.5-15.0 [facility] Comment on above: Order Comment: No: D o not add to previous draw Performed By: #### 5 0608 ####[facility] [facility].[address] Hematocrit (Bld) [Volume fraction] 27.2 % Low 39.0-50.0 [facility] Comment on above: Order Comment: No: D o not add to previous draw Performed By: #### 5 0608 ####[facility] [place] [address] Hemoglobin (Bld) [Mass/Vol] 8.1 g/dL Low 13.0-17.0 [facility] Comment on above: Order Comment: No: D o not add to previous draw Performed By: #### 5 0608 ####[address] MCH (RBC) [Entitic mass] 27.6 pg Normal 27.0-33.0 [facility] Comment on above: Order Comment: No: D o not add to previous draw Performed By: #### 5 0608 ####[facility] MCHC (RBC) [Mass/Vol] 29.8 g/dL Low 32.0-35.0 [facility] Comment on above: Order Comment: No: D o not add to previous draw Performed By: #### 5 0608 ####[facility] [place] [address].[address] MCV (RBC) [Entitic vol] 92.8 fL Normal 82.0-98.0 [facility] Comment on above: Order Comment: No: D o not add to previous draw Performed By: #### 5 0608 ####[address] Nucleated RBC/100 WBC (Bld) [Ratio] 0 % Normal 0-0 [facility] Comment on above: Order Comment: No: D o not add to previous draw Performed By: #### 5 0608 ####[facility] [place] [address], [facility] PLAT CNT 329 10*3/uL Normal 150-400 The [facility] Comment on above: Order Comment: No: D o not add to previous draw Performed By: #### 5 0608 ####[facility] [place] [address], [facility] RBC (Bld) [#/Vol] 2.93 10*6/uL Low 4.20-5.70 [facility] Comment on above: Order Comment: No: D o not add to previous draw Performed By: #### 5 0608 ####[facility] [facility] WBC (Bld) [#/Vol] 6.21 10*3/uL Normal 4.00-10.60 [facility] Comment on above: Order Comment: No: D o not add to previous draw Performed By: #### 5 0608 ####[facility] [facility].[address] MAGNESIUM BLOODon 05-21-2021 Magnesium [Mass/Vol] 2.0 mg/dL Normal 1.9-2.7 [facility] Comment on above: Order Comment: No: D o not add to previous draw Performed By: #### 1 0070, 35763, 74476 ####[facility] [facility] Operative Reporton 1 Operative Report Normal [facility] PHOSPHORUS BLOODon 1 Phosphate [Mass/Vol] 4.0 mg/dL Normal 2.5-5.0 [facility] Comment on above: Order Comment: No: D o not add to previous draw Performed By: #### 1 0070, 08144, 36967 ####[facility] [facility] [place] [address], [facility] POC GLUCOSE LABon 05-21-2021 Glucose [Mass/Vol] 143 mg/dL High 70-100 [facility] Comment on above: Performed By: #### 8 5499 ####[facility] [facility] [address], [place] Glucose [Mass/Vol] 123 mg/dL High 70-100 [facility] Comment on above: Performed By: #### 8 5499 ####[facility] [facility] [place] [address], [place] Glucose [Mass/Vol] 128 mg/dL High 70-100 [facility] Comment on above: Performed By: #### 8 5499 ####[facility] [facility] [address], [place] Glucose [Mass/Vol] 158 mg/dL High 70-100 [facility] Comment on above: Performed By: #### 8 5499 ####[facility] [facility] [place] [address], [facility] PORTABLE CHEST 1 VIEWon 04-25 PORTABLE CHEST 1 VIEW Normal [facility] Comment on above: Order Comment: evalu ate for Atelectasis PROTHROMBIN TIMEon INR Coag (PPP) [Relative time] 1.12 {INR} Normal 0.91-1.16 [facility] Comment on above: Order Comment: [...] OF ACTION, CLINICALEFFECTIVENESS, AND OPTIMAL THERAPEUTIC RANGE. [id number];108:231S-246S. Performed By: #### 5 6101 ####[facility] [facility].[address] PT Coag (PPP) [Time] 14.4 s Normal 12.3-14.8 [facility] Comment on above: Order Comment: No: D o not add to previous draw Result Comment: ALL RESULTS MUST BE INTERPRETED WITH RESPECT TO BLOOD DRAWING ARTIFACTOR DILUTION ERROR OF ANTICOAGULANT AT THE TIME OF SAMPLING. Performed By: #### 5 6101 ####[facility] [facility] BASIC METABOLIC PANELon 09-2 Calcium [Mass/Vol] 8.8 mg/dL Normal 8.6-10.3 [facility] Comment on above: Order Comment: No: D o not add to previous draw Performed By: #### 1 0070, 17201, 22933 ####[facility] [facility] [place] [address], [facility] Chloride [Moles/Vol] 96 mmol/L Low 98-107 [facility] Comment on above: Order Comment: No: D o not add to previous draw Performed By: #### 1 0070, 37026, 27794 ####[facility] [facility] [place] [address], [facility] CO2 [Moles/Vol] 33 mmol/L High 21-[address] [facility] Comment on above: Order Comment: No: D o not add to previous draw Performed By: #### 1 0, 47595, 02812 ####[facility] [place] [address], [facility] Creatinine [Mass/Vol] 0.90 mg/dL Normal 0.70-1.30 [facility] Comment on above: Order Comment: No: D o not add to previous draw Performed By: #### 1 0070, 27281, 37303 ####[facility] [place] [address], [facility] GFR/1.73 sq M.predicted among blacks MDRD (S/P/Bld) [Vol rate/Area] mL/min/{1.73_m2} Normal >60 [facility] Comment on above: Order Comment: No: D o not add to previous draw Result Comment: Calc ulation may not be valid for patients over 70 years Performed By: #### 1 0, 21661, 65074 ####[facility] [facility] [place] [address], [facility] GFR/1.73 sq M.predicted among non-blacks MDRD (S/P/Bld) [Vol rate/Area] mL/min/{1.73_m2} Normal >60 [facility] Comment on above: Order Comment: No: D o not add to previous draw Result Comment: Calc ulation may not be valid for patients over 70 years Performed By: #### 1 0, 52781, 60677 ####[facility] [facility] [place] [address], [facility] Glucose [Mass/Vol] 113 mg/dL High 70-100 [facility] Comment on above: Order Comment: No: D o not add to previous draw Performed By: #### 1 0070, 67897, 75303 ####[facility] [place] [address], [place] Potassium [Moles/Vol] 3.6 mmol/L Normal 3.5-5.1 [facility] Comment on above: Order Comment: No: D o not add to previous draw Performed By: #### 1 0070, 04023, 68808 ####[facility] [facility] [place] [address], [facility] Sodium [Moles/Vol] 135 mmol/L Low 136-145 [facility] Comment on above: Order Comment: No: D o not add to previous draw Performed By: #### 1 0, 02252, 92565 ####[facility] [facility] [place] [address], [facility] Urea nitrogen [Mass/Vol] 15 mg/dL Normal 7-25 [facility] Comment on above: Order Comment: No: D o not add to previous draw Performed By: #### 1 0, 01862, 83882 ####[facility] [facility].[address] CBC COMPLETE BLOOD COUNTon 05-20-2021 Erythrocyte distribution width (RBC) [Ratio] 14.1 % Normal 11.5-15.0 [facility] Comment on above: Order Comment: No: D o not add to previous draw Performed By: #### 5 0608 ####[place] [address] [facility] [place] [address], [facility] Hematocrit (Bld) [Volume fraction] 28.9 % Low 39.0-50.0 [facility] Comment on above: Order Comment: No: D o not add to previous draw Performed By: #### 5 0608 ####[facility] [facility] [place] [address], [facility] Hemoglobin (Bld) [Mass/Vol] 8.9 g/dL Low 13.0-17.0 [facility] Comment on above: Order Comment: No: D o not add to previous draw Performed By: #### 5 0608 ####[facility] [facility] [place] [address], [facility] MCH (RBC) [Entitic mass] 28.3 pg Normal 27.0-33.0 [facility] Comment on above: Order Comment: No: D o not add to previous draw Performed By: #### 5 0608 ####[facility] [facility].[address] MCHC (RBC) [Mass/Vol] 30.8 g/dL Low 32.0-35.0 [facility] Comment on above: Order Comment: No: D o not add to previous draw Performed By: #### 5 0608 ####[facility] [facility].[address] MCV (RBC) [Entitic vol] 92.0 fL Normal 82.0-98.0 [facility] Comment on above: Order Comment: No: D o not add to previous draw Performed By: #### 5 0608 ####[place] [address] Nucleated RBC/100 WBC (Bld) [Ratio] 0 % Normal 0-0 [facility] Comment on above: Order Comment: No: D o not add to previous draw Performed By: #### 5 0608 ####[place] [address] [facility].[address] PLAT CNT 339 10*3/uL Normal 150-400 The [facility] Comment on above: Order Comment: No: D o not add to previous draw Performed By: #### 5 0608 ####[facility] [place] [address].[address] RBC (Bld) [#/Vol] 3.14 10*6/uL Low 4.20-5.70 [facility] Comment on above: Order Comment: No: D o not add to previous draw Performed By: #### 5 0608 ####[facility] [place] [address].[place] [address], [facility] WBC (Bld) [#/Vol] 6.69 10*3/uL Normal 4.00-10.60 [facility] Comment on above: Order Comment: No: D o not add to previous draw Performed By: #### 5 0608 ####[facility] [facility].[address] Erythrocyte distribution width (RBC) [Ratio] 14.1 % Normal 11.5-15.0 [facility] Comment on above: Order Comment: No: D o not add to previous draw Performed By: #### 5 0608 ####[facility] [facility].[address] Hematocrit (Bld) [Volume fraction] 29.5 % Low 39.0-50.0 [facility] Comment on above: Order Comment: No: D o not add to previous draw Performed By: #### 5 0608 ####[place] [address] [facility].[address] Hemoglobin (Bld) [Mass/Vol] 9.3 g/dL Low 13.0-17.0 [facility] Comment on above: Order Comment: No: D o not add to previous draw Performed By: #### 5 0608 ####[address] MCH (RBC) [Entitic mass] 28.2 pg Normal 27.0-33.0 [facility] Comment on above: Order Comment: No: D o not add to previous draw Performed By: #### 5 0608 ####[facility] [facility] [place] [address], [facility] MCHC (RBC) [Mass/Vol] 31.5 g/dL Low 32.0-35.0 [facility] Comment on above: Order Comment: No: D o not add to previous draw Performed By: #### 5 0608 ####[address] [place] [address], [facility] MCV (RBC) [Entitic vol] 89.4 fL Normal 82.0-98.0 [facility] Comment on above: Order Comment: No: D o not add to previous draw Performed By: #### 5 0608 ####[facility] Nucleated RBC/100 WBC (Bld) [Ratio] 0 % Normal 0-0 [facility] Comment on above: Order Comment: No: D o not add to previous draw Performed By: #### 5 0608 ####[facility] [facility] [place] [address], [facility] PLAT CNT 338 10*3/uL Normal 150-400 The [facility] Comment on above: Order Comment: No: D o not add to previous draw Performed By: #### 5 0608 ####[facility] [facility].[address] RBC (Bld) [#/Vol] 3.30 10*6/uL Low 4.20-5.70 [facility] Comment on above: Order Comment: No: D o not add to previous draw Performed By: #### 5 0608 ####[facility] [facility] [place] [address], [facility] WBC (Bld) [#/Vol] 6.66 10*3/uL Normal 4.00-10.60 [facility] Comment on above: Order Comment: No: D o not add to previous draw Performed By: #### 5 0608 ####[facility] [facility].[address] MAGNESIUM BLOODon 05-20-2021 Magnesium [Mass/Vol] 1.9 mg/dL Normal 1.9-2.7 [facility] Comment on above: Order Comment: No: D o not add to previous draw Performed By: #### 1 0070, 68462, 19168 ####[facility] [facility] [address], [place] PHOSPHORUS BLOODon 1 Phosphate [Mass/Vol] 3.7 mg/dL Normal 2.5-5.0 [facility] Comment on above: Order Comment: No: D o not add to previous draw Performed By: #### 1 0070, 59333, 69268 ####[facility] [facility] [address], [place] POC GLUCOSE LABon 05-20-2021 Glucose [Mass/Vol] 130 mg/dL High 70-100 [facility] Comment on above: Performed By: #### 8 5499 ####[facility] [facility] [place] [address], [place] Glucose [Mass/Vol] 119 mg/dL High 70-100 [facility] Comment on above: Performed By: #### 8 5499 ####[facility] [facility] [place] [address], [place] Glucose [Mass/Vol] 118 mg/dL High 70-100 [facility] Comment on above: Performed By: #### 8 5499 ####[facility] [facility] [place] [address], [place] Glucose [Mass/Vol] 118 mg/dL High 70-100 [facility] Comment on above: Performed By: #### 8 5499 ####[facility] [facility] [place] [address], [place] Glucose [Mass/Vol] 119 mg/dL High 70-100 [facility] Comment on above: Performed By: #### 8 5499 ####[facility] [facility] [place] [address], [place] PROTHROMBIN TIMEon 1 INR Coag (PPP) [Relative time] 1.09 {INR} Normal 0.91-1.16 [facility] Comment on above: Order Comment: [...] OF ACTION, CLINICALEFFECTIVENESS, AND OPTIMAL THERAPEUTIC RANGE. [id number];108:231S-246S. Performed By: #### 5 6101 ####[facility] [place] [address], [facility] PT Coag (PPP) [Time] 14.1 s Normal 12.3-14.8 [facility] Comment on above: Order Comment: No: D o not add to previous draw Result Comment: ALL RESULTS MUST BE INTERPRETED WITH RESPECT TO BLOOD DRAWING ARTIFACTOR DILUTION ERROR OF ANTICOAGULANT AT THE TIME OF SAMPLING. Performed By: #### 5 6101 ####[facility] [place] [address], [facility] TYPE AND SCREENon 05-20-2021 ABO INTERPRETATION O Normal [facility] Comment on above: Performed By: #### 6 2586 ####[facility] [place] [address], [facility] RH INTERPRETATION Positive Normal The [facility] Comment on above: Performed By: #### 6 3976 ####[facility] *MRSA/MSSA DNA NASALon 05-19 *MRSA/MSSA DNA NASAL Clinical Report: (D) Specimen: NASAL SWAB Collected: 05/19/2021 10:27 Status: Final Last Updated: 05/19/2021 15:02 MSSA DNA (Final) Negative MRSA DNA (Final) Negative Normal [facility] Comment on above: Performed By: #### 3 1595 ####[facility] CBC W/DIFFon 05-19-2021 ABS IMM GRANS 0.0 10*3/uL Normal 0.0-0.2 The [facility] Comment on above: Order Comment: No: D o not add to previous draw Performed By: #### 5 0103 ####[facility] ABS NEUTROPHILS 4.3 10*3/uL Normal 1.6-7.6 [facility] Comment on above: Order Comment: No: D o not add to previous draw Performed By: #### 5 0103 ####[facility] [place] [address], [facility] Basophils (Bld) [#/Vol] 0.0 10*3/uL Normal 0.0-0.2 [facility] Comment on above: Order Comment: No: D o not add to previous draw Performed By: #### 5 0103 ####[facility] [place] [address], [facility] Basophils/100 WBC (Bld) 0.5 % Normal 0.0-1.0 [facility] Comment on above: Order Comment: No: D o not add to previous draw Performed By: #### 5 0103 ####[facility] [place] [address], [facility] Eosinophils (Bld) [#/Vol] 0.2 10*3/uL Normal 0.0-0.5 [facility] Comment on above: Order Comment: No: D o not add to previous draw Performed By: #### 5 0103 ####[facility] [facility].[address] [address] Eosinophils/100 WBC (Bld) 3.1 % Normal 0.0-6.0 [facility] Comment on above: Order Comment: No: D o not add to previous draw Performed By: #### 5 0103 ####[facility] [facility].[address] Erythrocyte distribution width (RBC) [Ratio] 14.2 % Normal 11.5-15.0 [facility] Comment on above: Order Comment: No: D o not add to previous draw Performed By: #### 5 0103 ####[facility] [facility].[address] Hematocrit (Bld) [Volume fraction] 29.0 % Low 39.0-50.0 [facility] Comment on above: Order Comment: No: D o not add to previous draw Performed By: #### 5 0103 ####[facility] [facility].[address] Hemoglobin (Bld) [Mass/Vol] 9.2 g/dL Low 13.0-17.0 [facility] Comment on above: Order Comment: No: D o not add to previous draw Performed By: #### 5 0103 ####[facility] [facility] [place] [address], [facility] IMMATURE GRANS 0.5 % Normal 0.0-1.0 The [facility] Comment on above: Order Comment: No: D o not add to previous draw Performed By: #### 5 0103 ####[facility] [place] [address], [facility] Lymphocytes (Bld) [#/Vol] 1.0 10*3/uL Low 1.2-4.0 [facility] Comment on above: Order Comment: No: D o not add to previous draw Performed By: #### 5 0103 ####[facility] Lymphocytes/100 WBC (Bld) 15.9 % Low 20.0-45.0 [facility] Comment on above: Order Comment: No: D o not add to previous draw Performed By: #### 5 0103 ####[facility] MCH (RBC) [Entitic mass] 28.5 pg Normal 27.0-33.0 [facility] Comment on above: Order Comment: No: D o not add to previous draw Performed By: #### 5 3 ####[facility] MCHC (RBC) [Mass/Vol] 31.7 g/dL Low 32.0-35.0 [facility] Comment on above: Order Comment: No: D o not add to previous draw Performed By: #### 5 0103 ####[facility] MCV (RBC) [Entitic vol] 89.8 fL Normal 82.0-98.0 [facility] Comment on above: Order Comment: No: D o not add to previous draw Performed By: #### 5 0103 ####[facility] [place] [address], [facility] Monocytes (Bld) [#/Vol] 0.6 10*3/uL Normal 0.1-1.0 [facility] Comment on above: Order Comment: No: D o not add to previous draw Performed By: #### 5 3 ####[facility] [facility] [place] [address], [facility] MONOS 10.2 % Normal 5.0-12.0 [facility] Comment on above: Order Comment: No: D o not add to previous draw Performed By: #### 5 0103 ####[facility] [facility] [place] [address], [facility] Neutrophils/100 WBC (Bld) 69.8 % Normal 40.0-72.0 [facility] Comment on above: Order Comment: No: D o not add to previous draw Performed By: #### 5 0103 ####[facility] [facility] [place] [address], [facility] Nucleated RBC/100 WBC (Bld) [Ratio] 0 % Normal 0-0 [facility] Comment on above: Order Comment: No: D o not add to previous draw Performed By: #### 5 0103 ####[facility] [facility] [place] [address], [facility] PLAT CNT 294 10*3/uL Normal 150-400 The [facility] Comment on above: Order Comment: No: D o not add to previous draw Performed By: #### 5 0103 ####[facility] [facility] [place] [address], [facility] RBC (Bld) [#/Vol] 3.23 10*6/uL Low 4.20-5.70 The [facility] Comment on above: Order Comment: No: D o not add to previous draw Performed By: #### 5 0103 ####[facility] [facility] [place] [address], [facility] WBC (Bld) [#/Vol] 6.09 10*3/uL Normal 4.00-10.60 The [facility] Comment on above: Order Comment: No: D o not add to previous draw Performed By: #### 5 3 ####[facility] [facility] [place] [address], [facility] COMP METABOLIC PANELon 05-19 Albumin [Mass/Vol] 2.8 g/dL Low 3.5-5.7 The [facility] Comment on above: Order Comment: No: D o not add to previous draw Performed By: #### 4 1000, 21921, 53462 ####[facility] [place] [address], [facility] ALKALINE PHOSPH 59 IU/L Normal 34-[address] [facility] Comment on above: Order Comment: No: D o not add to previous draw Performed By: #### 4 1000, 10915, 37853 ####[facility] [place] [address], [facility] ALT [Catalytic activity/Vol] 9 U/L Normal 7-52 [facility] Comment on above: Order Comment: No: D o not add to previous draw Performed By: #### 4 1000, 80169, 34676 ####[facility] [place] [address], [facility] AST [Catalytic activity/Vol] 20 U/L Normal 13-39 [facility] Comment on above: Order Comment: No: D o not add to previous draw Performed By: #### 4 1000, 68474, 11614 ####[facility] [place] [address], [facility] Bilirubin [Mass/Vol] 0.6 mg/dL Normal 0.3-1.0 [facility] Comment on above: Order Comment: No: D o not add to previous draw Performed By: #### 4 1000, 22210, 98592 ####[facility] [id number], [facility] Calcium [Mass/Vol] 8.5 mg/dL Low 8.6-10.3 [facility] Comment on above: Order Comment: No: D o not add to previous draw Performed By: #### 4 1000, 59250, 75681 ####[facility] [place] [address], [place] Chloride [Moles/Vol] 98 mmol/L Normal 98-107 [facility] Comment on above: Order Comment: No: D o not add to previous draw Performed By: #### 4 1000, 76800, 73566 ####[facility] [place] [address], [place] CO2 [Moles/Vol] 31 mmol/L Normal 21-[address] [facility] Comment on above: Order Comment: No: D o not add to previous draw Performed By: #### 4 1000, 19843, 08151 ####[facility] [place] [address], [facility] Creatinine [Mass/Vol] 0.74 mg/dL Normal 0.70-1.30 [facility] Comment on above: Order Comment: No: D o not add to previous draw Performed By: #### 4 1000, 09900, 07826 ####[facility] [place] [address], [place] GFR/1.73 sq M.predicted among blacks MDRD (S/P/Bld) [Vol rate/Area] mL/min/{1.73_m2} Normal >60 [facility] Comment on above: Order Comment: No: D o not add to previous draw Result Comment: Calc ulation may not be valid for patients over 70 years Performed By: #### 4 1000, 76637, 60986 ####[facility] [place] [address], [place] GFR/1.73 sq M.predicted among non-blacks MDRD (S/P/Bld) [Vol rate/Area] mL/min/{1.73_m2} Normal >60 [facility] Comment on above: Order Comment: No: D o not add to previous draw Result Comment: Calc ulation may not be valid for patients over 70 years Performed By: #### 4 1000, 25669, 85187 ####[facility] [place] [address], [place] Glucose [Mass/Vol] 143 mg/dL High 70-100 [facility] Comment on above: Order Comment: No: D o not add to previous draw Performed By: #### 4 1000, 24116, 79307 ####[facility] [place] [address], [place] Potassium [Moles/Vol] 3.4 mmol/L Low 3.5-5.1 [facility] Comment on above: Order Comment: No: D o not add to previous draw Performed By: #### 4 1000, 94545, 90484 ####[facility] [place] [address], [facility] Protein [Mass/Vol] 6.7 g/dL Normal 6.0-8.3 [facility] Comment on above: Order Comment: No: D o not add to previous draw Performed By: #### 4 1000, 11105, 28984 ####[facility] [place] [address], [facility] Sodium [Moles/Vol] 134 mmol/L Low 136-145 [facility] Comment on above: Order Comment: No: D o not add to previous draw Performed By: #### 4 1000, 96658, 11393 ####[facility] [place] [address], [facility] Urea nitrogen [Mass/Vol] 14 mg/dL Normal 7-25 [facility] Comment on above: Order Comment: No: D o not add to previous draw Performed By: #### 4 1000, 78786, 86772 ####[facility] [place] [address], [place] MAGNESIUM BLOODon 05-19-2021 Magnesium [Mass/Vol] 1.9 mg/dL Normal 1.9-2.7 [facility] Comment on above: Order Comment: No: D o not add to previous draw Performed By: #### 4 1000, 92524, 41477 ####[facility] [place] [address], [place] PHOSPHORUS BLOODon Phosphate [Mass/Vol] 3.1 mg/dL Normal 2.5-5.0 [facility] Comment on above: Order Comment: No: D o not add to previous draw Performed By: #### 4 1000, 12964, 71269 ####[facility] [place] [address], [place] POC GLUCOSE LABon 05-19-2021 Glucose [Mass/Vol] 124 mg/dL High 70-100 [facility] Comment on above: Performed By: #### 8 5499 ####[facility] [place] [address], [place] Glucose [Mass/Vol] 132 mg/dL High 70-100 [facility] Comment on above: Performed By: #### 8 5499 ####[facility] [place] [address], [place] Glucose [Mass/Vol] 153 mg/dL High 70-100 [facility] Comment on above: Performed By: #### 8 5499 ####[facility] [place] [address], [place] Glucose [Mass/Vol] 133 mg/dL High 70-100 [facility] Comment on above: Performed By: #### 8 5499 ####[facility] [place] [address], [facility] POC SARS COV2 ANTIGEN NEGATI VEon 05-19-2021 POC SARS COV2 ANTIGEN NEG Negative Normal NEGATIVE [facility] Comment on above: Result Comment: Nega tive [...] of clinicalsigns and symptoms consistent with COVID-19.The [employer] COVID-19 Ag Card is a lateral flow immunoassay intended forthe qualitative detection of nucleocapsid protein antigen [id number] in direct nasal swabs from individuals within [...] Certificate ofAccreditation. Performed By: #### 3 1976 ####[address] VANCOMYCIN TIMEDon VANCOMYCIN TIMED 16.3 mcg/mL Normal The [facility] Comment on above: Performed By: #### 3 53 ####[address] CBC W/DIFFon 05-18-2021 ABS IMM GRANS 0.0 10*3/uL Normal 0.0-0.2 The [facility] Comment on above: Order Comment: No: D o not add to previous draw Performed By: #### 5 3 ####[address] ABS NEUTROPHILS 5.1 10*3/uL Normal 1.6-7.6 The [facility] Comment on above: Order Comment: No: D o not add to previous draw Performed By: #### 5 3 ####[address] Basophils (Bld) [#/Vol] 0.0 10*3/uL Normal 0.0-0.2 [facility] Comment on above: Order Comment: No: D o not add to previous draw Performed By: #### 5 0103 ####[facility] [place] [address], [facility] Basophils/100 WBC (Bld) 0.4 % Normal 0.0-1.0 [facility] Comment on above: Order Comment: No: D o not add to previous draw Performed By: #### 5 0103 ####[facility] [facility] [address], [facility] Eosinophils (Bld) [#/Vol] 0.2 10*3/uL Normal 0.0-0.5 [facility] Comment on above: Order Comment: No: D o not add to previous draw Performed By: #### 5 0103 ####[facility] [facility] [place] [address], [facility] Eosinophils/100 WBC (Bld) 2.6 % Normal 0.0-6.0 [facility] Comment on above: Order Comment: No: D o not add to previous draw Performed By: #### 5 0103 ####[facility] [facility] [place] [address], [facility] Erythrocyte distribution width (RBC) [Ratio] 14.1 % Normal 11.5-15.0 [facility] Comment on above: Order Comment: No: D o not add to previous draw Performed By: #### 5 0103 ####[facility] [facility] [place] [address], [facility] Hematocrit (Bld) [Volume fraction] 27.5 % Low 39.0-50.0 [facility] Comment on above: Order Comment: No: D o not add to previous draw Performed By: #### 5 3 ####[facility] [place] [address], [facility] Hemoglobin (Bld) [Mass/Vol] 8.6 g/dL Low 13.0-17.0 [facility] Comment on above: Order Comment: No: D o not add to previous draw Performed By: #### 5 0103 ####[facility] [facility] [place] [address], [facility] IMMATURE GRANS 0.1 % Normal 0.0-1.0 [facility] Comment on above: Order Comment: No: D o not add to previous draw Performed By: #### 5 0103 ####[facility] Lymphocytes (Bld) [#/Vol] 1.3 10*3/uL Normal 1.2-4.0 [facility] Comment on above: Order Comment: No: D o not add to previous draw Performed By: #### 5 0103 ####[facility] [facility].[address] Lymphocytes/100 WBC (Bld) 18.0 % Low 20.0-45.0 [facility] Comment on above: Order Comment: No: D o not add to previous draw Performed By: #### 5 0103 ####[facility] MCH (RBC) [Entitic mass] 28.7 pg Normal 27.0-33.0 [facility] Comment on above: Order Comment: No: D o not add to previous draw Performed By: #### 5 0103 ####[facility] [facility].[address] MCHC (RBC) [Mass/Vol] 31.3 g/dL Low 32.0-35.0 [facility] Comment on above: Order Comment: No: D o not add to previous draw Performed By: #### 5 3 ####[facility] [facility].[address] MCV (RBC) [Entitic vol] 91.7 fL Normal 82.0-98.0 [facility] Comment on above: Order Comment: No: D o not add to previous draw Performed By: #### 5 0103 ####[facility] [place] [address], [facility] Monocytes (Bld) [#/Vol] 0.7 10*3/uL Normal 0.1-1.0 [facility] Comment on above: Order Comment: No: D o not add to previous draw Performed By: #### 5 0103 ####[facility] [place] [address], [facility] MONOS 10.0 % Normal 5.0-12.0 [facility] Comment on above: Order Comment: No: D o not add to previous draw Performed By: #### 5 0103 ####[facility] [facility].[address] Neutrophils/100 WBC (Bld) 68.9 % Normal 40.0-72.0 [facility] Comment on above: Order Comment: No: D o not add to previous draw Performed By: #### 5 0103 ####[facility] [facility].[address] Nucleated RBC/100 WBC (Bld) [Ratio] 0 % Normal 0-0 [facility] Comment on above: Order Comment: No: D o not add to previous draw Performed By: #### 5 0103 ####[facility] [facility] [place] [address], [facility] PLAT CNT 288 10*3/uL Normal 150-400 The [facility] Comment on above: Order Comment: No: D o not add to previous draw Performed By: #### 5 0103 ####[facility] [facility] [place] [address], [facility] RBC (Bld) [#/Vol] 3.00 10*6/uL Low 4.20-5.70 The [facility] Comment on above: Order Comment: No: D o not add to previous draw Performed By: #### 5 0103 ####[facility] WBC (Bld) [#/Vol] 7.40 10*3/uL Normal 4.00-10.60 The [facility] Comment on above: Order Comment: No: D o not add to previous draw Performed By: #### 5 0103 ####[facility] [facility].[address] COMP METABOLIC PANELon 05-18 Albumin [Mass/Vol] 2.7 g/dL Low 3.5-5.7 [facility] Comment on above: Order Comment: No: D o not add to previous draw Performed By: #### 4 1000, 05011, 34463, 89831 ####[facility] ALKALINE PHOSPH 62 IU/L Normal 34-[address] [facility] Comment on above: Order Comment: No: D o not add to previous draw Performed By: #### 4 1000, 51435, 91076, 89801 ####[facility] ALT [Catalytic activity/Vol] 11 U/L Normal 7-52 [facility] Comment on above: Order Comment: No: D o not add to previous draw Performed By: #### 4 1000, 48827, 99374, 30157 ####[facility] [place] [address], [facility] AST [Catalytic activity/Vol] 31 U/L Normal 13-39 [facility] Comment on above: Order Comment: No: D o not add to previous draw Performed By: #### 4 1000, 58758, 17759, 59931 ####[facility] [place] [address], [place] Bilirubin [Mass/Vol] 0.8 mg/dL Normal 0.3-1.0 [facility] Comment on above: Order Comment: No: D o not add to previous draw Performed By: #### 4 1000, 18430, 58515, 57168 ####[facility] [place] [address], [place] Calcium [Mass/Vol] 8.0 mg/dL Low 8.6-10.3 [facility] Comment on above: Order Comment: No: D o not add to previous draw Performed By: #### 4 1000, 34626, 77996, 25614 ####[facility] [place] [address], [place] Chloride [Moles/Vol] 98 mmol/L Normal 98-107 [facility] Comment on above: Order Comment: No: D o not add to previous draw Performed By: #### 4 1000, 29026, 97789, 72397 ####[facility] [place] [address], [place] CO2 [Moles/Vol] 33 mmol/L High 21-31 [facility] Comment on above: Order Comment: No: D o not add to previous draw Performed By: #### 4 1000, 45533, 62628, 05580 ####[facility] [place] [address], [place] Creatinine [Mass/Vol] 0.89 mg/dL Normal 0.70-1.30 [facility] Comment on above: Order Comment: No: D o not add to previous draw Performed By: #### 4 1000, 17022, 66021, 10834 ####[facility] [place] [address], [place] GFR/1.73 sq M.predicted among blacks MDRD (S/P/Bld) [Vol rate/Area] mL/min/{1.73_m2} Normal >60 [facility] Comment on above: Order Comment: No: D o not add to previous draw Result Comment: Calc ulation may not be valid for patients over 70 years Performed By: #### 4 1000, 62637, 16526, 14359 ####[facility] [place] [address], [place] GFR/1.73 sq M.predicted among non-blacks MDRD (S/P/Bld) [Vol rate/Area] mL/min/{1.73_m2} Normal >60 [facility] Comment on above: Order Comment: No: D o not add to previous draw Result Comment: Calc ulation may not be valid for patients over 70 years Performed By: #### 4 1000, 70215, 25784, 83958 ####[facility] [place] [address], [place] Glucose [Mass/Vol] 108 mg/dL High 70-100 The [facility] Comment on above: Order Comment: No: D o not add to previous draw Performed By: #### 4 1000, 15320, 80611, 12448 ####[facility] [place] [address], [place] Potassium [Moles/Vol] 3.7 mmol/L Normal 3.5-5.1 [facility] Comment on above: Order Comment: No: D o not add to previous draw Performed By: #### 4 1000, 95407, 13497, 76906 ####[facility] [place] [address], [place] Protein [Mass/Vol] 6.6 g/dL Normal 6.0-8.3 [facility] Comment on above: Order Comment: No: D o not add to previous draw Performed By: #### 4 1000, 94713, 15066, 93013 ####[facility] [place] [address], [place] Sodium [Moles/Vol] 136 mmol/L Normal 136-145 [facility] Comment on above: Order Comment: No: D o not add to previous draw Performed By: #### 4 1000, 21385, 81938, 48602 ####[facility] [place] [address], [facility] Urea nitrogen [Mass/Vol] 16 mg/dL Normal 7-25 [facility] Comment on above: Order Comment: No: D o not add to previous draw Performed By: #### 4 1000, 64996, 17756, 34151 ####[facility] [place] [address], [facility] MAGNESIUM BLOODon 05-18-2021 Magnesium [Mass/Vol] 1.9 mg/dL Normal 1.9-2.7 [facility] Comment on above: Order Comment: No: D o not add to previous draw Performed By: #### 4 1000, 00980, 52972, 20857 ####[facility] [place] [address], [facility] PHOSPHORUS BLOODon Phosphate [Mass/Vol] 4.2 mg/dL Normal 2.5-5.0 [facility] Comment on above: Order Comment: No: D o not add to previous draw Performed By: #### 4 1000, 09408, 07616, 67811 ####[facility] [place] [address], [facility] POC GLUCOSE LABon 05-18-2021 Glucose [Mass/Vol] 152 mg/dL High 70-100 [facility] Comment on above: Performed By: #### 8 5499 ####[facility] [place] [address], [place] Glucose [Mass/Vol] 140 mg/dL High 70-100 [facility] Comment on above: Performed By: #### 8 8439 ####[facility] [place] [address], [facility] Glucose [Mass/Vol] 202 mg/dL High 70-100 [facility] Comment on above: Performed By: #### 8 5499 ####[facility] [facility] [place] [address], [facility] Glucose [Mass/Vol] 121 mg/dL High 70-100 [facility] Comment on above: Performed By: #### 8 5499 ####[facility] [facility].[address] PORTABLE CHEST 1 VIEWon 04-25 PORTABLE CHEST 1 VIEW Normal The [facility] Comment on above: Order Comment: EValu ate for Effusion VANCOMYCIN TIMEDon VANCOMYCIN TIMED 10.2 mcg/mL Normal The [facility] Comment on above: Performed By: #### 4 1000, 23329, 34226, 13501 ####[facility] CBC W/DIFFon 05-17-2021 ABS IMM GRANS 0.0 10*3/uL Normal 0.0-0.2 The [facility] Comment on above: Order Comment: No: D o not add to previous draw Performed By: #### 5 0103 ####[facility] ABS NEUTROPHILS 3.6 10*3/uL Normal 1.6-7.6 The [facility] Comment on above: Order Comment: No: D o not add to previous draw Performed By: #### 5 0103 ####[facility] [place] [address], [facility] Basophils (Bld) [#/Vol] 0.1 10*3/uL Normal 0.0-0.2 [facility] Comment on above: Order Comment: No: D o not add to previous draw Performed By: #### 5 0103 ####[facility] [facility] [place] [address], [facility] Basophils/100 WBC (Bld) 0.9 % Normal 0.0-1.0 [facility] Comment on above: Order Comment: No: D o not add to previous draw Performed By: #### 5 0103 ####[facility] [facility] [place] [address], [facility] Eosinophils (Bld) [#/Vol] 0.1 10*3/uL Normal 0.0-0.5 [facility] Comment on above: Order Comment: No: D o not add to previous draw Performed By: #### 5 0103 ####[facility] [facility] [place] [address], [facility] Eosinophils/100 WBC (Bld) 0.9 % Normal 0.0-6.0 [facility] Comment on above: Order Comment: No: D o not add to previous draw Performed By: #### 5 0103 ####[facility] [facility] [place] [address], [facility] Erythrocyte distribution width (RBC) [Ratio] 14.6 % Normal 11.5-15.0 [facility] Comment on above: Order Comment: No: D o not add to previous draw Performed By: #### 5 3 ####[facility] [facility] [place] [address], [facility] Hematocrit (Bld) [Volume fraction] 27.7 % Low 39.0-50.0 [facility] Comment on above: Order Comment: No: D o not add to previous draw Performed By: #### 5 0103 ####[facility] [facility] [place] [address], [facility] Hemoglobin (Bld) [Mass/Vol] 8.5 g/dL Low 13.0-17.0 [facility] Comment on above: Order Comment: No: D o not add to previous draw Performed By: #### 5 0103 ####[facility] IMMATURE GRANS 0.5 % Normal 0.0-1.0 The [facility] Comment on above: Order Comment: No: D o not add to previous draw Performed By: #### 5 0103 ####[facility] Lymphocytes (Bld) [#/Vol] 1.4 10*3/uL Normal 1.2-4.0 [facility] Comment on above: Order Comment: No: D o not add to previous draw Performed By: #### 5 0103 ####[facility] Lymphocytes/100 WBC (Bld) 23.3 % Normal 20.0-45.0 [facility] Comment on above: Order Comment: No: D o not add to previous draw Performed By: #### 5 0103 ####[facility] MCH (RBC) [Entitic mass] 28.4 pg Normal 27.0-33.0 [facility] Comment on above: Order Comment: No: D o not add to previous draw Performed By: #### 5 3 ####[facility] MCHC (RBC) [Mass/Vol] 30.7 g/dL Low 32.0-35.0 [facility] Comment on above: Order Comment: No: D o not add to previous draw Performed By: #### 5 0103 ####[facility] MCV (RBC) [Entitic vol] 92.6 fL Normal 82.0-98.0 [facility] Comment on above: Order Comment: No: D o not add to previous draw Performed By: #### 5 0103 ####[facility] [facility] [place] [address], [facility] Monocytes (Bld) [#/Vol] 0.7 10*3/uL Normal 0.1-1.0 [facility] Comment on above: Order Comment: No: D o not add to previous draw Performed By: #### 5 0103 ####[facility] [facility] [address], [facility] MONOS 11.7 % Normal 5.0-12.0 [facility] Comment on above: Order Comment: No: D o not add to previous draw Performed By: #### 5 3 ####[facility] [facility] [place] [address], [facility] Neutrophils/100 WBC (Bld) 62.7 % Normal 40.0-72.0 [facility] Comment on above: Order Comment: No: D o not add to previous draw Performed By: #### 5 3 ####[facility] [facility] [place] [address], [facility] Nucleated RBC/100 WBC (Bld) [Ratio] 0 % Normal 0-0 [facility] Comment on above: Order Comment: No: D o not add to previous draw Performed By: #### 5 102 ####[facility] [facility] [place] [address], [facility] PLAT CNT 325 10*3/uL Normal 150-400 The [facility] Comment on above: Order Comment: No: D o not add to previous draw Performed By: #### 5 3 ####[facility] [facility] [place] [address], [facility] RBC (Bld) [#/Vol] 2.99 10*6/uL Low 4.20-5.70 The [facility] Comment on above: Order Comment: No: D o not add to previous draw Performed By: #### 5 0103 ####[facility] [place] [address], [facility] WBC (Bld) [#/Vol] 5.79 10*3/uL Normal 4.00-10.60 [facility] Comment on above: Order Comment: No: D o not add to previous draw Performed By: #### 5 0103 ####[facility] [place] [address], [facility] COMP METABOLIC PANELon 05-17 Albumin [Mass/Vol] 2.8 g/dL Low 3.5-5.7 [facility] Comment on above: Order Comment: No: D o not add to previous draw Performed By: #### 4 1000, 40938, 83761 ####[facility] [place] [address], [facility] ALKALINE PHOSPH 55 IU/L Normal 34-[address] [facility] Comment on above: Order Comment: No: D o not add to previous draw Performed By: #### 4 1000, 54101, 06644 ####[facility] [facility] [place] [address], [facility] ALT [Catalytic activity/Vol] 7 U/L Normal 7-52 [facility] Comment on above: Order Comment: No: D o not add to previous draw Performed By: #### 4 1000, 05211, 62883 ####[facility] [place] [address], [facility] AST [Catalytic activity/Vol] 11 U/L Low 13-39 [facility] Comment on above: Order Comment: No: D o not add to previous draw Performed By: #### 4 1000, 08717, 88801 ####[facility] [place] [address], [facility] Bilirubin [Mass/Vol] 0.6 mg/dL Normal 0.3-1.0 [facility] Comment on above: Order Comment: No: D o not add to previous draw Performed By: #### 4 1000, 26916, 73067 ####[facility] [place] [address], [place] Calcium [Mass/Vol] 8.2 mg/dL Low 8.6-10.3 [facility] Comment on above: Order Comment: No: D o not add to previous draw Performed By: #### 4 1000, 35509, 80813 ####[facility] [place] [address], [place] Chloride [Moles/Vol] 102 mmol/L Normal 98-107 [facility] Comment on above: Order Comment: No: D o not add to previous draw Performed By: #### 4 1000, 00856, 66738 ####[facility] [place] [address], [place] CO2 [Moles/Vol] 31 mmol/L Normal 21-31 [facility] Comment on above: Order Comment: No: D o not add to previous draw Performed By: #### 4 1000, 12640, 28304 ####[facility] [place] [address], [place] Creatinine [Mass/Vol] 1.19 mg/dL Normal 0.70-1.30 [facility] Comment on above: Order Comment: No: D o not add to previous draw Performed By: #### 4 1000, 57292, 69938 ####[facility] [place] [address], [place] eGFR- non- 59 ml/min/1.73sq m Abnormal >60 The [facility] Comment on above: Order Comment: No: D o not add to previous draw Result Comment: Calc ulation may not be valid for patients over 70 years Performed By: #### 4 1000, 57521, 99273 ####[facility] [place] [address], [place] GFR/1.73 sq M.predicted among blacks MDRD (S/P/Bld) [Vol rate/Area] mL/min/{1.73_m2} Normal >60 [facility] Comment on above: Order Comment: No: D o not add to previous draw Result Comment: Calc ulation may not be valid for patients over 70 years Performed By: #### 4 1000, 03769, 85811 ####[facility] [place] [address], [place] Glucose [Mass/Vol] 99 mg/dL Normal 70-100 [facility] Comment on above: Order Comment: No: D o not add to previous draw Performed By: #### 4 1000, 75067, 81672 ####[facility] [place] [address], [place] Potassium [Moles/Vol] 3.7 mmol/L Normal 3.5-5.1 [facility] Comment on above: Order Comment: No: D o not add to previous draw Performed By: #### 4 1000, 64309, 88235 ####[facility] [place] [address], [place] Protein [Mass/Vol] 6.6 g/dL Normal 6.0-8.3 [facility] Comment on above: Order Comment: No: D o not add to previous draw Performed By: #### 4 1000, 51053, 34702 ####[facility] [place] [address], [place] Sodium [Moles/Vol] 138 mmol/L Normal 136-145 [facility] Comment on above: Order Comment: No: D o not add to previous draw Performed By: #### 4 1000, 35518, 90515 ####[facility] [place] [address], [place] Urea nitrogen [Mass/Vol] 16 mg/dL Normal 7-25 [facility] Comment on above: Order Comment: No: D o not add to previous draw Performed By: #### 4 1000, 71531, 45116 ####[facility] [place] [address], [place] MAGNESIUM BLOODon 05-17-2021 Magnesium [Mass/Vol] 2.0 mg/dL Normal 1.9-2.7 [facility] Comment on above: Order Comment: No: D o not add to previous draw Performed By: #### 4 1000, 88692, 99430 ####[facility] [place] [address], [place] PHOSPHORUS BLOODon Phosphate [Mass/Vol] 4.6 mg/dL Normal 2.5-5.0 [facility] Comment on above: Order Comment: No: D o not add to previous draw Performed By: #### 4 1000, 80365, 17769 ####[facility] [place] [address], [place] POC GLUCOSE LABon 05-17-2021 Glucose [Mass/Vol] 139 mg/dL High 70-100 [facility] Comment on above: Performed By: #### 8 5499 ####[facility] [facility] [address], [place] Glucose [Mass/Vol] 100 mg/dL Normal 70-100 [facility] Comment on above: Performed By: #### 8 5499 ####[facility] [facility] [address], [place] Glucose [Mass/Vol] 122 mg/dL High 70-100 [facility] Comment on above: Performed By: #### 8 5499 ####[facility] [place] [address], [place] Glucose [Mass/Vol] 107 mg/dL High 70-100 [facility] Comment on above: Performed By: #### 8 5499 ####[facility] PORTABLE CHEST 1 VIEWon 04-25 PORTABLE CHEST 1 VIEW Normal [facility] Comment on above: Order Comment: evalu ate for Atelectasis *ANAEROBIC CULTUREon 021 *ANAEROBIC CULTURE Clinical Report: (D) Specimen/Source: TISSUE/INTRAOP SPEC Collected: 05/16/2021 10:48 Status: Final Last Updated: 05/21/2021 08:50 (1) STERNAL TISSUE ISO (Final) No Anaerobes Isolated Day 5 Normal [facility] Comment on above: Order Comment: BRANDT AL TISSUE Performed By: #### 3 0312 ####[facility] *ANAEROBIC CULTURE Clinical Report: (D) Specimen/Source: SWAB/INTRAOP SPEC Collected: 05/16/2021 10:45 Status: Final Last Updated: 05/21/2021 08:50 (1) STERNAL WOUND ISO (Final) No Anaerobes Isolated Day 5 Normal [facility] Comment on above: Order Comment: BRANDT AL WOUND Performed By: #### 3 0312 ####[facility] *TISSUE CULTUREon 05-16-2021 *TISSUE CULTURE Normal The [facility] Comment on above: Order Comment: BRANDT AL TISSUE Performed By: #### 3 0338 ####[facility] *WOUND CULTUREon 05-16-2021 *WOUND CULTURE Normal The [facility] Comment on above: Order Comment: BRANDT AL WOUND Performed By: #### 3 0343 ####[address] APTTon 05-16-2021 aPTT Coag (Bld) [Time] 32.6 s Normal 25.0-35.0 [facility] Comment on above: Order Comment: [...] THIS PURPOSE. Performed By: #### 5 7307, 06704 ####[facility] BASIC METABOLIC PANELon 04-25 Calcium [Mass/Vol] 8.5 mg/dL Low 8.6-10.3 [facility] Comment on above: Order Comment: No: D o not add to previous draw Performed By: #### 4 1000, 57681, 72669 ####[place] [address] [facility] [place] [address], [facility] Chloride [Moles/Vol] 101 mmol/L Normal 98-107 [facility] Comment on above: Order Comment: No: D o not add to previous draw Performed By: #### 4 1000, 70903, 62894 ####[facility] [facility] [place] [address], [facility] CO2 [Moles/Vol] 31 mmol/L Normal 21-31 [facility] Comment on above: Order Comment: No: D o not add to previous draw Performed By: #### 4 1000, 13606, 96945 ####[facility] [facility] [place] [address], [facility] Creatinine [Mass/Vol] 0.66 mg/dL Low 0.70-1.30 [facility] Comment on above: Order Comment: No: D o not add to previous draw Performed By: #### 4 1000, 99641, 23181 ####[facility] [facility] [place] [address], [facility] GFR/1.73 sq M.predicted among blacks MDRD (S/P/Bld) [Vol rate/Area] mL/min/{1.73_m2} Normal >60 [facility] Comment on above: Order Comment: No: D o not add to previous draw Result Comment: Calc ulation may not be valid for patients over 70 years Performed By: #### 4 1000, 30100, 06996 ####[facility] [place] [address], [place] GFR/1.73 sq M.predicted among non-blacks MDRD (S/P/Bld) [Vol rate/Area] mL/min/{1.73_m2} Normal >60 [facility] Comment on above: Order Comment: No: D o not add to previous draw Result Comment: Calc ulation may not be valid for patients over 70 years Performed By: #### 4 1000, 65523, 75616 ####[facility] [place] [address], [place] Glucose [Mass/Vol] 117 mg/dL High 70-100 [facility] Comment on above: Order Comment: No: D o not add to previous draw Performed By: #### 4 1000, , 59284 ####[facility] [place] [address], [place] Potassium [Moles/Vol] 4.1 mmol/L Normal 3.5-5.1 [facility] Comment on above: Order Comment: No: D o not add to previous draw Performed By: #### 4 1000, 57179, 34867 ####[facility] [place] [address], [place] Sodium [Moles/Vol] 136 mmol/L Normal 136-145 [facility] Comment on above: Order Comment: No: D o not add to previous draw Performed By: #### 4 1000, 60631, 93374 ####[facility] [place] [address], [place] Urea nitrogen [Mass/Vol] 11 mg/dL Normal 7-25 [facility] Comment on above: Order Comment: No: D o not add to previous draw Performed By: #### 4 1000, 49928, 51025 ####[facility] [facility].[address] CBC COMPLETE BLOOD COUNTon 0 05-16-2021 Erythrocyte distribution width (RBC) [Ratio] 14.5 % Normal 11.5-15.0 [facility] Comment on above: Order Comment: No: D o not add to previous draw Performed By: #### 5 0608 ####[facility] [facility].[address] Hematocrit (Bld) [Volume fraction] 30.5 % Low 39.0-50.0 [facility] Comment on above: Order Comment: No: D o not add to previous draw Performed By: #### 5 0608 ####[facility] [facility].[address] Hemoglobin (Bld) [Mass/Vol] 9.5 g/dL Low 13.0-17.0 [facility] Comment on above: Order Comment: No: D o not add to previous draw Performed By: #### 5 0608 ####[facility] [facility] [place] [address], [facility] MCH (RBC) [Entitic mass] 28.5 pg Normal 27.0-33.0 [facility] Comment on above: Order Comment: No: D o not add to previous draw Performed By: #### 5 0608 ####[facility] [facility] [place] [address], [facility] MCHC (RBC) [Mass/Vol] 31.1 g/dL Low 32.0-35.0 [facility] Comment on above: Order Comment: No: D o not add to previous draw Performed By: #### 5 0608 ####[facility] [facility] [place] [address], [place] MCV (RBC) [Entitic vol] 91.6 fL Normal 82.0-98.0 [facility] Comment on above: Order Comment: No: D o not add to previous draw Performed By: #### 5 0608 ####[facility] [facility] [place] [address], [facility] Nucleated RBC/100 WBC (Bld) [Ratio] 0 % Normal 0-0 [facility] Comment on above: Order Comment: No: D o not add to previous draw Performed By: #### 5 0608 ####[facility] [facility] [place] [address], [facility] PLAT CNT 353 10*3/uL Normal 150-400 The [facility] Comment on above: Order Comment: No: D o not add to previous draw Performed By: #### 5 0608 ####[facility] [facility] [place] [address], [facility] RBC (Bld) [#/Vol] 3.33 10*6/uL Low 4.20-5.70 [facility] Comment on above: Order Comment: No: D o not add to previous draw Performed By: #### 5 0608 ####[facility] [facility] [place] [address], [facility] WBC (Bld) [#/Vol] 5.98 10*3/uL Normal 4.00-10.60 [facility] Comment on above: Order Comment: No: D o not add to previous draw Performed By: #### 5 0608 ####[facility] [facility] [place] [address], [facility] LACTATE BLOODon 05-16-2021 Lactate [Moles/Vol] 0.6 mmol/L Normal .5-2.2 [facility] Comment on above: Order Comment: No: D o not add to previous draw Performed By: #### 1 0054 ####[facility] [place] [address], [place] [address], [facility] Lactate [Moles/Vol] 0.8 mmol/L Normal .5-2.2 [facility] Comment on above: Order Comment: No: D o not add to previous draw Performed By: #### 1 0054 ####[facility] [id number], [facility] MAGNESIUM BLOODon 05-16-2021 Magnesium [Mass/Vol] 1.9 mg/dL Normal 1.9-2.7 [facility] Comment on above: Order Comment: No: D o not add to previous draw Performed By: #### 4 1000, 78031, 12428 ####[facility] [facility] [place] [address], [facility] OSMOLALITY BLOODon 1 Osmolality [Osmolality] 292 mosm/kg Normal 285-305 [facility] Comment on above: Order Comment: No: D o not add to previous draw Performed By: #### 3 9301, 50227 ####[facility] [facility] [place] [address], [facility] Osmolality [Osmolality] 297 mosm/kg Normal 285-305 [facility] Comment on above: Order Comment: No: D o not add to previous draw Performed By: #### 3 9301, 64460 ####[facility] [facility] [place] [address], [facility] PHOSPHORUS BLOODon 1 Phosphate [Mass/Vol] 4.3 mg/dL Normal 2.5-5.0 [facility] Comment on above: Order Comment: No: D o not add to previous draw Performed By: #### 4 1000, 04978, 85009 ####[facility] [facility] [place] [address], [facility] POC GLUCOSE LABon 05-16-2021 Glucose [Mass/Vol] 121 mg/dL High 70-100 [facility] Comment on above: Performed By: #### 8 5499 ####[facility] [place] [address], [facility] Glucose [Mass/Vol] 126 mg/dL High 70-100 [facility] Comment on above: Performed By: #### 8 5499 ####[facility] [place] [address], [place] Glucose [Mass/Vol] 133 mg/dL High 70-100 [facility] Comment on above: Performed By: #### 8 5499 ####[facility] [place] [address], [place] Glucose [Mass/Vol] 131 mg/dL High 70-100 [facility] Comment on above: Performed By: #### 8 5499 ####[facility] [facility] [place] [address], [facility] PORTABLE CHEST 1 VIEWon 04-25 PORTABLE CHEST 1 VIEW Normal [facility] Comment on above: Order Comment: Check NG Tube Position PORTABLE CHEST 1 VIEW Normal [facility] Comment on above: Order Comment: Evalu ate Atelectasis PROTHROMBIN TIMEon INR Coag (PPP) [Relative time] 1.15 {INR} Normal 0.91-1.16 [facility] Comment on above: Order Comment: No: [...] OF ACTION, CLINICALEFFECTIVENESS, AND OPTIMAL THERAPEUTIC RANGE. [id number]. Performed By: #### 5 7307, 07928 ####[facility] PT Coag (PPP) [Time] 14.7 s Normal 12.3-14.8 [facility] Comment on above: Order Comment: No: D o not add to previous draw Result Comment: ALL RESULTS MUST BE INTERPRETED WITH RESPECT TO BLOOD DRAWING ARTIFACTOR DILUTION ERROR OF ANTICOAGULANT AT THE TIME OF SAMPLING. Performed By: #### 5 7307, 06680 ####[facility] [facility].[address] TRIGLYCERIDES BLOODon 2020 Triglyceride [Mass/Vol] 95 mg/dL Normal 40-149 [facility] Comment on above: Order Comment: No: D o not add to previous draw Result Comment: TRIG LYCERIDE REFERENCE RANGE:20 YEARS AND OLDER CARDIOVASCULAR RISKLESS THAN 150 mg/dl LOW [id number] TO 199 mg/dl BORDERLINE [id number] mg/dl AND GREATER HIGH RISK Performed By: #### 3 9301, 11103 ####[place] [address] [facility].[address] Triglyceride [Mass/Vol] 98 mg/dL Normal 40-149 [facility] Comment on above: Order Comment: No: D o not add to previous draw Result Comment: TRIG LYCERIDE REFERENCE RANGE:20 YEARS AND OLDER CARDIOVASCULAR RISKLESS THAN 150 mg/dl LOW [id number] TO 199 mg/dl BORDERLINE [id number] mg/dl AND GREATER HIGH RISK Performed By: #### 3 9301, 92717 ####[address] *BLOOD CULTUREon 05-15-2021 *BLOOD CULTURE Clinical Report: (D) Specimen: BLOOD CULTURE Collected: 05/15/2021 11:35 Status: Final Last Updated: 05/20/2021 14:11 (1) Prior to antibiotic administration CULT RES (Final) No Growth Day 5 Normal [facility] Comment on above: Order Comment: Prior to antibiotic administration Performed By: #### 3 0313 ####[place] [address] APTTon 05-15-2021 aPTT Coag (Bld) [Time] 30.4 s Normal 25.0-35.0 [facility] Comment on above: Result Comment: ALL [...] THIS PURPOSE. Performed By: #### 5 7307, 24101 ####[place] [address] ARTERIAL BLOOD GAS W/COOXon 05-15-2021 BASE EXCESS 2 mmol/L Normal -2-3 [facility] Comment on above: Order Comment: RESUL TS CHECKED AND CALLED. ACCURATELY READ BACK BY RADHIKA ED CHARGE. Performed By: #### 4 0055 ####[address] COHB 2.3 % High 0.0-1.5 [facility] Comment on above: Order Comment: RESUL TS CHECKED AND CALLED. ACCURATELY READ BACK BY RADHIKA ED CHARGE. Performed By: #### 4 0055 ####[address] DELIVERY SYSTEMS [place] Normal [facility] Comment on above: Order Comment: RESUL TS CHECKED AND CALLED. ACCURATELY READ BACK BY RADHIKA ED CHARGE. Performed By: #### 4 0055 ####[address] [place] [address], [facility] HCO3 (Bld) [Moles/Vol] 29 mmol/L High 21-28 [facility] Comment on above: Order Comment: RESUL TS CHECKED AND CALLED. ACCURATELY READ BACK BY RADHIKA ED CHARGE. Performed By: #### 4 0055 ####[facility] [facility] [place] [address], [facility] LPM 5.0 LPM Normal [facility] Comment on above: Order Comment: RESUL TS CHECKED AND CALLED. ACCURATELY READ BACK BY RADHIKA ED CHARGE. Performed By: #### 4 0055 ####[place] [address] [facility] [place] [address], [facility] METHB 1.1 % Normal 0.0-1.5 [facility] Comment on above: Order Comment: RESUL TS CHECKED AND CALLED. ACCURATELY READ BACK BY RADHIKA ED CHARGE. Performed By: #### 4 0055 ####[facility] [facility] [place] [address], [facility] MODALITY NC Normal [facility] Comment on above: Order Comment: RESUL TS CHECKED AND CALLED. ACCURATELY READ BACK BY RADHIKA ED CHARGE. Performed By: #### 4 0055 ####[place] [address] [facility].[address] Oxygen (Bld) [Partial pressure] 83 mm[Hg] Normal 83-108 [facility] Comment on above: Order Comment: RESUL TS CHECKED AND CALLED. ACCURATELY READ BACK BY RADHIKA ED CHARGE. Performed By: #### 4 0055 ####[place] [address] [facility].[address] Oxygen saturation in Blood 94.8 % Normal 94.0-97.0 [facility] Comment on above: Order Comment: RESUL TS CHECKED AND CALLED. ACCURATELY READ BACK BY RADHIKA ED CHARGE. Performed By: #### 4 0055 ####[address] [place] [address], [facility] PCO2 58 mmHg Critically high 35-[address] [facility] Comment on above: Order Comment: RESUL TS CHECKED AND CALLED. ACCURATELY READ BACK BY RADHIKA ED CHARGE. Performed By: #### 4 0055 ####[facility] pH (Bld) 7.31 [pH] Low 7.35-7.45 The [facility] Comment on above: Order Comment: RESUL TS CHECKED AND CALLED. ACCURATELY READ BACK BY RADHIKA ED CHARGE. Performed By: #### 4 0055 ####[facility] THB 10.2 g/dL Low 12.0-16.3 The [facility] Comment on above: Order Comment: RESUL TS CHECKED AND CALLED. ACCURATELY READ BACK BY RADHIKA ED CHARGE. Performed By: #### 4 0055 ####[place] [id number] [address] BNP (B-TYPE NATRIURETIC PEPT MAX)on 05-15-2021 Natriuretic peptide B (Bld) [Mass/Vol] 136 pg/mL High 0-100 The [facility] Comment on above: Order Comment: Yes: Add to Previous draw if able Result Comment: Give n the appropriate clinical setting a BNP result of >100 pg/mLindicates congestive heart failure. Performed By: #### 8 5123 ####[facility] CBC W/DIFFon 05-15-2021 ABS IMM GRANS 0.0 10*3/uL Normal 0.0-0.2 The [facility] Comment on above: Performed By: #### 5 0103 ####[address] ABS NEUTROPHILS 5.0 10*3/uL Normal 1.6-7.6 The [facility] Comment on above: Performed By: #### 5 0103 ####[facility] [facility] [address], [facility] Basophils (Bld) [#/Vol] 0.0 10*3/uL Normal 0.0-0.2 The [facility] Comment on above: Performed By: #### 5 0103 ####[facility] [facility] [place] [address], [facility] Basophils/100 WBC (Bld) 0.6 % Normal 0.0-1.0 The [facility] Comment on above: Performed By: #### 5 0103 ####[facility] [facility] [place] [address], [facility] Eosinophils (Bld) [#/Vol] 0.1 10*3/uL Normal 0.0-0.5 The [facility] Comment on above: Performed By: #### 5 3 ####[facility] [facility] [place] [address], [facility] Eosinophils/100 WBC (Bld) 0.7 % Normal 0.0-6.0 The [facility] Comment on above: Performed By: #### 5 3 ####[facility]3000 [facility].[address] Erythrocyte distribution width (RBC) [Ratio] 14.5 % Normal 11.5-15.0 The [facility] Comment on above: Performed By: #### 5 3 ####[facility] [facility].[address] Hematocrit (Bld) [Volume fraction] 32.5 % Low 39.0-50.0 The [facility] Comment on above: Performed By: #### 5 3 ####[facility]3000 [facility].[address] Hemoglobin (Bld) [Mass/Vol] 10.3 g/dL Low 13.0-17.0 The [facility] Comment on above: Performed By: #### 5 3 ####[facility] IMMATURE GRANS 0.6 % Normal 0.0-1.0 The [facility] Comment on above: Performed By: #### 5 0103 ####[facility] Lymphocytes (Bld) [#/Vol] 1.1 10*3/uL Low 1.2-4.0 The [facility] Comment on above: Performed By: #### 5 3 ####[facility] Lymphocytes/100 WBC (Bld) 15.9 % Low 20.0-45.0 The [facility] Comment on above: Performed By: #### 5 3 ####[facility] [place] [address] MCH (RBC) [Entitic mass] 28.8 pg Normal 27.0-33.0 The [facility] Comment on above: Performed By: #### 5 3 ####[facility] MCHC (RBC) [Mass/Vol] 31.7 g/dL Low 32.0-35.0 The [facility] Comment on above: Performed By: #### 5 3 ####[facility] MCV (RBC) [Entitic vol] 90.8 fL Normal 82.0-98.0 The [facility] Comment on above: Performed By: #### 5 3 ####[facility] [place] [address] Monocytes (Bld) [#/Vol] 0.8 10*3/uL Normal 0.1-1.0 The [facility] Comment on above: Performed By: #### 5 0103 ####[facility] [facility] [place] [address], [facility] MONOS 11.2 % Normal 5.0-12.0 [facility] Comment on above: Performed By: #### 5 3 ####[facility] [facility] [place] [address], [facility] Neutrophils/100 WBC (Bld) 71.0 % Normal 40.0-72.0 The [facility] Comment on above: Performed By: #### 5 3 ####[facility] [facility] [place] [address], [facility] Nucleated RBC/100 WBC (Bld) [Ratio] 0 % Normal 0-0 The [facility] Comment on above: Performed By: #### 5 102 ####[facility] [facility] [place] [address], [facility] PLAT CNT 376 10*3/uL Normal 150-400 The [facility] Comment on above: Performed By: #### 5 0103 ####[facility] [facility] [place] [address], [facility] RBC (Bld) [#/Vol] 3.58 10*6/uL Low 4.20-5.70 The [facility] Comment on above: Performed By: #### 5 3 ####[facility] [facility] [place] [address], [facility] WBC (Bld) [#/Vol] 7.03 10*3/uL Normal 4.00-10.60 The [facility] Comment on above: Performed By: #### 5 0103 ####[facility] [facility].[address] COMP METABOLIC PANELon 05-15 Albumin [Mass/Vol] 3.2 g/dL Low 3.5-5.7 The [facility] Comment on above: Performed By: #### 4 1000, 97678, 44437, 58904 ####[facility] [place] [address], [place] ALKALINE PHOSPH 84 IU/L Normal 34-104 [facility] Comment on above: Performed By: #### 4 1000, 82613, 25259, 89896 ####[facility] [place] [address], [place] ALT [Catalytic activity/Vol] 11 U/L Normal 7-52 The [facility] Comment on above: Performed By: #### 4 1000, 33683, 26985, 18651 ####[facility] [place] [address], [place] AST [Catalytic activity/Vol] 12 U/L Low 13-39 [facility] Comment on above: Performed By: #### 4 1000, 21131, 32018, 80992 ####[facility] [place] [address], [place] Bilirubin [Mass/Vol] 0.9 mg/dL Normal 0.3-1.0 [facility] Comment on above: Performed By: #### 4 1000, 41564, 40809, 39032 ####[facility] [place] [address], [place] Calcium [Mass/Vol] 8.3 mg/dL Low 8.6-10.3 [facility] Comment on above: Performed By: #### 4 1000, 53130, 53178, 98638 ####[facility] [place] [address], [place] Chloride [Moles/Vol] 101 mmol/L Normal 98-107 The [facility] Comment on above: Performed By: #### 4 1000, 86952, 80178, 33065 ####[facility] [place] [address], [place] CO2 [Moles/Vol] 30 mmol/L Normal 21-[address] [facility] Comment on above: Performed By: #### 4 1000, 07349, 00143, 53062 ####[facility] [place] [address], [facility] Creatinine [Mass/Vol] 0.92 mg/dL Normal 0.70-1.30 The [facility] Comment on above: Performed By: #### 4 1000, 15537, 68476, 15920 ####[facility] [place] [address], [place] GFR/1.73 sq M.predicted among blacks MDRD (S/P/Bld) [Vol rate/Area] mL/min/{1.73_m2} Normal >60 The [facility] Comment on above: Result Comment: Calc ulation may not be valid for patients over 70 years Performed By: #### 4 1000, 21220, 61229, 15647 ####[facility] [facility] [place] [address], [place] GFR/1.73 sq M.predicted among non-blacks MDRD (S/P/Bld) [Vol rate/Area] mL/min/{1.73_m2} Normal >60 The [facility] Comment on above: Result Comment: Calc ulation may not be valid for patients over 70 years Performed By: #### 4 1000, 89461, 10227, 23787 ####[facility] [place] [address], [place] Glucose [Mass/Vol] 138 mg/dL High 70-100 [facility] Comment on above: Performed By: #### 4 1000, 67053, 16794, 84271 ####[facility] [place] [address], [place] Potassium [Moles/Vol] 4.1 mmol/L Normal 3.5-5.1 The [facility] Comment on above: Performed By: #### 4 1000, 71852, 59611, 00606 ####[facility] [place] [address], [facility] Protein [Mass/Vol] 7.4 g/dL Normal 6.0-8.3 The [facility] Comment on above: Performed By: #### 4 1000, 23410, 37290, 12514 ####[facility] [place] [address], [facility] Sodium [Moles/Vol] 136 mmol/L Normal 136-145 The [facility] Comment on above: Performed By: #### 4 1000, 85293, 51444, 40697 ####[facility] [place] [address], [facility] Urea nitrogen [Mass/Vol] 8 mg/dL Normal 7-25 The [facility] Comment on above: Performed By: #### 4 1000, 16435, 77387, 69594 ####[facility] [place] [address], [facility] LACTATE BLOODon 05-15-2021 Lactate [Moles/Vol] 0.7 mmol/L Normal .5-2.2 The [facility] Comment on above: Order Comment: Repea t Lactate in 4 hours Performed By: #### 1 0054 ####[facility] [id number], [facility] MAGNESIUM BLOODon 05-15-2021 Magnesium [Mass/Vol] 2.0 mg/dL Normal 1.9-2.7 The [facility] Comment on above: Performed By: #### 4 1000, 16583, 41055, 49325 ####[facility] [place] [address], [facility] PHOSPHORUS BLOODon Phosphate [Mass/Vol] 6.0 mg/dL High 2.5-5.0 The [facility] Comment on above: Performed By: #### 4 1000, 74872, 28108, 58476 ####[facility] [facility].[address] POC GLUCOSE LABon 05-15-2021 Glucose [Mass/Vol] 225 mg/dL High 70-100 [facility] Comment on above: Performed By: #### 8 5499 ####[facility] [facility].[address] POC SARS COV2 ANTIGEN NEGATI VEon 05-15-2021 POC SARS COV2 ANTIGEN NEG Negative Normal NEGATIVE The [facility] Comment on above: Result Comment: Nega tive [...] of clinicalsigns and symptoms consistent with COVID-19.The [employer] COVID-19 Ag Card is a lateral flow immunoassay intended forthe qualitative detection of nucleocapsid protein antigen [id number]-0 in direct nasal swabs from individuals within [...] Certificate ofAccreditation. Performed By: #### 3 1977 ####[facility] [place] [address], [facility] PORTABLE CHEST 1 VIEWon 04-25 PORTABLE CHEST 1 VIEW Normal The [facility] Comment on above: Order Comment: Evalu ate for Infiltrates, hypoxia, infected sternotomy site PROTHROMBIN TIMEon INR Coag (PPP) [Relative time] 1.07 {INR} Normal 0.91-1.16 [facility] Comment on above: Result Comment: ACCC P RECOMMENDED INR FOR WARFARIN THERAPY CONDITION INRPROPHYLAXIS OF VENOUS THROMBOSIS 2-3(HIGH-RISK SURGERY)TREATMENT OF VENOUS THROMBOSIS 2-3TREATMENT OF PULMONARY EMBOLISM 2-3PREVENTION OF SYSTEMIC EMBOLISM: 2-3 ACUTE MYOCARDIAL INFARCTION TISSUE HEART VALVES VALVULAR HEART DISEASE ATRIAL FIBRILLATION RECURRENT SYSTEMIC EMBOLISMMECHANICAL HEART VALVE 2.5-3.5 FROM: ORAL ANTICOAGULANTS. MECHANISM OF ACTION, CLINICALEFFECTIVENESS, AND OPTIMAL THERAPEUTIC RANGE. [id number]. Performed By: #### 5 7307, 96289 ####[facility] [facility] [place] [address], [facility] PT Coag (PPP) [Time] 13.9 s Normal 12.3-14.8 [facility] Comment on above: Result Comment: ALL RESULTS MUST BE INTERPRETED WITH RESPECT TO BLOOD DRAWING ARTIFACTOR DILUTION ERROR OF ANTICOAGULANT AT THE TIME OF SAMPLING. Performed By: #### 5 7307, 91266 ####[facility] [place] [address], [facility] TROPONIN-Ion 05-15-2021 Troponin I.cardiac [Mass/Vol] 0.01 ng/mL Normal 0.00-0.04 The [facility] Comment on above: Result Comment: REFE RENCE RANGES: 0.00 - 0.04 ng/ml NORMAL 0.05 - 0.50 ng/ml INDETERMINATE > 0.50 ng/ml CONSISTENT WITH AN M.I. Performed By: #### 4 1000, 39895, 60311, 04106 ####[facility] [place] [address], [facility] TYPE AND SCREENon 05-15-2021 ABO INTERPRETATION O Normal The [facility] Comment on above: Performed By: #### 6 2586 ####[facility] [facility] [address], [facility] RH INTERPRETATION Positive Normal The [facility] Comment on above: Performed By: #### 6 2586 ####[facility] [place] [address], [facility] POC GLUCOSE LABon 04-15-2021 Glucose [Mass/Vol] 143 mg/dL High 70-100 The [facility] Comment on above: Performed By: #### 8 5499 ####[facility] [facility] [address], [facility] Glucose [Mass/Vol] 241 mg/dL High 70-100 The [facility] Comment on above: Performed By: #### 8 5499 ####[facility] [facility] [address], [facility] Glucose [Mass/Vol] 121 mg/dL High 70-100 The [facility] Comment on above: Performed By: #### 8 5499 ####[facility] [facility] [place] [address], [facility] POC SARS COV2 ANTIGEN NEGATI VEon 04-15-2021 POC SARS COV2 ANTIGEN NEG Negative Normal NEGATIVE The [facility] Comment on above: Result Comment: Nega tive [...] of clinicalsigns and symptoms consistent with COVID-19.The [employer] COVID-19 Ag Card is a lateral flow immunoassay intended forthe qualitative detection of nucleocapsid protein antigen yrcyVGZL-NvB-3 in direct nasal swabs from individuals within [...] Certificate ofAccreditation. Performed By: #### 3 1977 ####[place] [address] [address] BASIC METABOLIC PANELon 08-2 Calcium [Mass/Vol] 8.7 mg/dL Normal 8.6-10.3 [facility] Comment on above: Order Comment: No: D o not add to previous draw Performed By: #### 0 0071, 57258 ####[place] [address] [facility].[address] Chloride [Moles/Vol] 95 mmol/L Low 98-107 The [facility] Comment on above: Order Comment: No: D o not add to previous draw Performed By: #### 0 0071, 87042 ####[place] [address] [facility].[address] CO2 [Moles/Vol] 27 mmol/L Normal 21-[address] [facility] Comment on above: Order Comment: No: D o not add to previous draw Performed By: #### 0 0071, 09161 ####[place] [address] [place] [address], [facility] Creatinine [Mass/Vol] 0.80 mg/dL Normal 0.70-1.30 [facility] Comment on above: Order Comment: No: D o not add to previous draw Performed By: #### 0 0071, 08023 ####[facility] [place] [address], [facility] GFR/1.73 sq M.predicted among blacks MDRD (S/P/Bld) [Vol rate/Area] mL/min/{1.73_m2} Normal >60 The [facility] Comment on above: Order Comment: No: D o not add to previous draw Result Comment: Calc ulation may not be valid for patients over 70 years Performed By: #### 0 0071, 18509 ####[facility] [place] [address], [facility] GFR/1.73 sq M.predicted among non-blacks MDRD (S/P/Bld) [Vol rate/Area] mL/min/{1.73_m2} Normal >60 The [facility] Comment on above: Order Comment: No: D o not add to previous draw Result Comment: Calc ulation may not be valid for patients over 70 years Performed By: #### 0 0071, 49394 ####[facility] [place] [address], [facility] Glucose [Mass/Vol] 108 mg/dL High 70-100 The [facility] Comment on above: Order Comment: No: D o not add to previous draw Performed By: #### 0 0071, 63250 ####[facility] [place] [address], [facility] Potassium [Moles/Vol] 3.6 mmol/L Normal 3.5-5.1 The [facility] Comment on above: Order Comment: No: D o not add to previous draw Performed By: #### 0 0071, 66563 ####[facility] [place] [address], [facility] Sodium [Moles/Vol] 132 mmol/L Low 136-145 [facility] Comment on above: Order Comment: No: D o not add to previous draw Performed By: #### 0 0071, 54762 ####[facility] [facility].[address] Urea nitrogen [Mass/Vol] 38 mg/dL High 7-25 The [facility] Comment on above: Order Comment: No: D o not add to previous draw Performed By: #### 0 0071, 42945 ####[facility] [facility].[address] CBC COMPLETE BLOOD COUNTon 0 04-14-2021 Erythrocyte distribution width (RBC) [Ratio] 14.1 % Normal 11.5-15.0 The [facility] Comment on above: Order Comment: No: D o not add to previous draw Performed By: #### 5 0608 ####[place] [address] [address] Hematocrit (Bld) [Volume fraction] 33.5 % Low 39.0-50.0 [facility] Comment on above: Order Comment: No: D o not add to previous draw Performed By: #### 5 0608 ####[place] [address] [facility].[address] Hemoglobin (Bld) [Mass/Vol] 11.3 g/dL Low 13.0-17.0 [facility] Comment on above: Order Comment: No: D o not add to previous draw Performed By: #### 5 0608 ####[facility] [facility].[address] MCH (RBC) [Entitic mass] 30.2 pg Normal 27.0-33.0 [facility] Comment on above: Order Comment: No: D o not add to previous draw Performed By: #### 5 0608 ####[facility] [place] [address] MCHC (RBC) [Mass/Vol] 33.7 g/dL Normal 32.0-35.0 [facility] Comment on above: Order Comment: No: D o not add to previous draw Performed By: #### 5 0608 ####[facility] [place] [address], [facility] MCV (RBC) [Entitic vol] 89.6 fL Normal 82.0-98.0 [facility] Comment on above: Order Comment: No: D o not add to previous draw Performed By: #### 5 0608 ####[facility] [facility].[address] Nucleated RBC/100 WBC (Bld) [Ratio] 0 % Normal 0-0 [facility] Comment on above: Order Comment: No: D o not add to previous draw Performed By: #### 5 0608 ####[facility] [place] [address], [facility] PLAT CNT 314 10*3/uL Normal 150-400 The [facility] Comment on above: Order Comment: No: D o not add to previous draw Performed By: #### 5 0608 ####[address] RBC (Bld) [#/Vol] 3.74 10*6/uL Low 4.20-5.70 The [facility] Comment on above: Order Comment: No: D o not add to previous draw Performed By: #### 5 0608 ####[facility] [facility] [place] [address], [facility] WBC (Bld) [#/Vol] 10.84 10*3/uL High 4.00-10.60 The [facility] Comment on above: Order Comment: No: D o not add to previous draw Performed By: #### 5 0608 ####[facility] [facility] [place] [address], [facility] MAGNESIUM BLOODon 04-14-2021 Magnesium [Mass/Vol] 1.9 mg/dL Normal 1.9-2.7 The [facility] Comment on above: Order Comment: No: D o not add to previous draw Performed By: #### 0 0071, 09902 ####[facility] [place] [address], [place] POC GLUCOSE LABon 04-14-2021 Glucose [Mass/Vol] 168 mg/dL High 70-100 [facility] Comment on above: Performed By: #### 8 5499 ####[facility] [place] [address], [place] Glucose [Mass/Vol] 133 mg/dL High 70-100 The [facility] Comment on above: Performed By: #### 8 5499 ####[facility] [place] [address], [place] Glucose [Mass/Vol] 167 mg/dL High 70-100 [facility] Comment on above: Performed By: #### 8 5499 ####[facility] [place] [address], [place] Glucose [Mass/Vol] 146 mg/dL High 70-100 [facility] Comment on above: Performed By: #### 8 5499 ####[facility] [place] [address], [place] Glucose [Mass/Vol] 152 mg/dL High 70-100 [facility] Comment on above: Performed By: #### 8 5499 ####[facility] [place] [address], [place] PORTABLE CHEST 1 VIEWon 03-25 PORTABLE CHEST 1 VIEW Normal The [facility] Comment on above: Order Comment: evalu ate Atelectasis BASIC METABOLIC PANELon 03-25 Calcium [Mass/Vol] 9.1 mg/dL Normal 8.6-10.3 The [facility] Comment on above: Order Comment: No: D o not add to previous draw Performed By: #### 1 69, 50680 ####[facility] [place] [address], [facility] Chloride [Moles/Vol] 94 mmol/L Low 98-107 [facility] Comment on above: Order Comment: No: D o not add to previous draw Performed By: #### 1 0, 11209 ####[facility] [place] [address], [facility] CO2 [Moles/Vol] 27 mmol/L Normal 21-[address] [facility] Comment on above: Order Comment: No: D o not add to previous draw Performed By: #### 1 69, 71603 ####[facility] [place] [address], [facility] Creatinine [Mass/Vol] 0.87 mg/dL Normal 0.70-1.30 The [facility] Comment on above: Order Comment: No: D o not add to previous draw Performed By: #### 1 69, 95120 ####[facility] [facility] [place] [address], [facility] GFR/1.73 sq M.predicted among blacks MDRD (S/P/Bld) [Vol rate/Area] mL/min/{1.73_m2} Normal >60 The [facility] Comment on above: Order Comment: No: D o not add to previous draw Result Comment: Calc ulation may not be valid for patients over 70 years Performed By: #### 1 69, 54065 ####[facility] [place] [address], [facility] GFR/1.73 sq M.predicted among non-blacks MDRD (S/P/Bld) [Vol rate/Area] mL/min/{1.73_m2} Normal >60 The [facility] Comment on above: Order Comment: No: D o not add to previous draw Result Comment: Calc ulation may not be valid for patients over 70 years Performed By: #### 1 69, 79877 ####[facility] [place] [address], [facility] Glucose [Mass/Vol] 125 mg/dL High 70-100 The [facility] Comment on above: Order Comment: No: D o not add to previous draw Performed By: #### 1 69, 03583 ####[facility] [place] [address], [facility] Potassium [Moles/Vol] 3.2 mmol/L Low 3.5-5.1 The [facility] Comment on above: Order Comment: No: D o not add to previous draw Performed By: #### 1 69, 23618 ####[facility] [place] [address], [facility] Sodium [Moles/Vol] 132 mmol/L Low 136-145 The [facility] Comment on above: Order Comment: No: D o not add to previous draw Performed By: #### 1 69, 94951 ####[facility] [facility].[address] Urea nitrogen [Mass/Vol] 27 mg/dL High 7-25 The [facility] Comment on above: Order Comment: No: D o not add to previous draw Performed By: #### 1 69, 68590 ####[facility] [facility].[address] CBC COMPLETE BLOOD COUNTon 0 - Erythrocyte distribution width (RBC) [Ratio] 14.2 % Normal 11.5-15.0 The [facility] Comment on above: Order Comment: No: D o not add to previous draw Performed By: #### 5 0608 ####[facility] Hematocrit (Bld) [Volume fraction] 35.2 % Low 39.0-50.0 [facility] Comment on above: Order Comment: No: D o not add to previous draw Performed By: #### 5 0608 ####[facility] [facility].[address] Hemoglobin (Bld) [Mass/Vol] 11.9 g/dL Low 13.0-17.0 [facility] Comment on above: Order Comment: No: D o not add to previous draw Performed By: #### 5 0608 ####[facility] MCH (RBC) [Entitic mass] 30.6 pg Normal 27.0-33.0 [facility] Comment on above: Order Comment: No: D o not add to previous draw Performed By: #### 5 0608 ####[place] [address] MCHC (RBC) [Mass/Vol] 33.8 g/dL Normal 32.0-35.0 [facility] Comment on above: Order Comment: No: D o not add to previous draw Performed By: #### 5 0608 ####[place] [address] MCV (RBC) [Entitic vol] 90.5 fL Normal 82.0-98.0 [facility] Comment on above: Order Comment: No: D o not add to previous draw Performed By: #### 5 0608 ####[address] Nucleated RBC/100 WBC (Bld) [Ratio] 0 % Normal 0-0 [facility] Comment on above: Order Comment: No: D o not add to previous draw Performed By: #### 5 0608 ####[facility] [place] [address] PLAT CNT 285 10*3/uL Normal 150-400 [facility] Comment on above: Order Comment: No: D o not add to previous draw Performed By: #### 5 0608 ####[facility] [place] [address], [facility] RBC (Bld) [#/Vol] 3.89 10*6/uL Low 4.20-5.70 [facility] Comment on above: Order Comment: No: D o not add to previous draw Performed By: #### 5 0608 ####[facility] [place] [address], [place] WBC (Bld) [#/Vol] 9.92 10*3/uL Normal 4.00-10.60 [facility] Comment on above: Order Comment: No: D o not add to previous draw Performed By: #### 5 0608 ####[facility] [facility] [address], [facility] MAGNESIUM BLOODon 04-13-2021 Magnesium [Mass/Vol] 1.9 mg/dL Normal 1.9-2.7 [facility] Comment on above: Order Comment: No: D o not add to previous draw Performed By: #### 1 0070, 79122 ####[facility] [place] [address], [facility] POC GLUCOSE LABon 04-13-2021 Glucose [Mass/Vol] 106 mg/dL High 70-100 [facility] Comment on above: Performed By: #### 8 5499 ####[facility] [place] [address], [place] Glucose [Mass/Vol] 185 mg/dL High 70-100 [facility] Comment on above: Performed By: #### 8 5499 ####[facility] [place] [address], [place] Glucose [Mass/Vol] 136 mg/dL High 70-100 [facility] Comment on above: Performed By: #### 8 5499 ####[facility] [place] [address], [facility] PORTABLE CHEST 1 VIEWon 03-25 PORTABLE CHEST 1 VIEW Normal [facility] Comment on above: Order Comment: evalu ate for Atelectasis BASIC METABOLIC PANELon 03-25 Calcium [Mass/Vol] 8.3 mg/dL Low 8.6-10.3 [facility] Comment on above: Order Comment: No: D o not add to previous draw Performed By: #### 1 0, 03298 ####[facility] [place] [address], [facility] Chloride [Moles/Vol] 102 mmol/L Normal 98-107 [facility] Comment on above: Order Comment: No: D o not add to previous draw Performed By: #### 1 69, 98535 ####[facility] [place] [address], [facility] CO2 [Moles/Vol] 25 mmol/L Normal 21-[address] [facility] Comment on above: Order Comment: No: D o not add to previous draw Performed By: #### 1 0, 74174 ####[facility] [place] [address], [facility] Creatinine [Mass/Vol] 0.67 mg/dL Low 0.70-1.30 [facility] Comment on above: Order Comment: No: D o not add to previous draw Performed By: #### 1 0, 06111 ####[facility] [place] [address], [facility] GFR/1.73 sq M.predicted among blacks MDRD (S/P/Bld) [Vol rate/Area] mL/min/{1.73_m2} Normal >60 [facility] Comment on above: Order Comment: No: D o not add to previous draw Result Comment: Calc ulation may not be valid for patients over 70 years Performed By: #### 1 69, 11666 ####[facility] [place] [address], [facility] GFR/1.73 sq M.predicted among non-blacks MDRD (S/P/Bld) [Vol rate/Area] mL/min/{1.73_m2} Normal >60 [facility] Comment on above: Order Comment: No: D o not add to previous draw Result Comment: Calc ulation may not be valid for patients over 70 years Performed By: #### 1 69, 42229 ####[facility] [place] [address], [place] Glucose [Mass/Vol] 116 mg/dL High 70-100 [facility] Comment on above: Order Comment: No: D o not add to previous draw Performed By: #### 1 69, 82333 ####[facility] [place] [address], [facility] Potassium [Moles/Vol] 4.0 mmol/L Normal 3.5-5.1 [facility] Comment on above: Order Comment: No: D o not add to previous draw Performed By: #### 1 69, 38081 ####[facility] [place] [address], [place] Sodium [Moles/Vol] 134 mmol/L Low 136-145 [facility] Comment on above: Order Comment: No: D o not add to previous draw Performed By: #### 1 69, 54473 ####[facility] [place] [address], [place] Urea nitrogen [Mass/Vol] 22 mg/dL Normal 7-25 [facility] Comment on above: Order Comment: No: D o not add to previous draw Performed By: #### 1 69, 42375 ####[facility] [place] [address], [place] CBC COMPLETE BLOOD COUNTon 0 04-12-2021 Erythrocyte distribution width (RBC) [Ratio] 14.6 % Normal 11.5-15.0 [facility] Comment on above: Order Comment: No: D o not add to previous draw Performed By: #### 5 0608 ####[facility] [facility] [place] [address], [facility] Hematocrit (Bld) [Volume fraction] 33.1 % Low 39.0-50.0 [facility] Comment on above: Order Comment: No: D o not add to previous draw Performed By: #### 5 0608 ####[facility] Hemoglobin (Bld) [Mass/Vol] 10.6 g/dL Low 13.0-17.0 [facility] Comment on above: Order Comment: No: D o not add to previous draw Performed By: #### 5 0608 ####[facility] MCH (RBC) [Entitic mass] 30.0 pg Normal 27.0-33.0 [facility] Comment on above: Order Comment: No: D o not add to previous draw Performed By: #### 5 0608 ####[facility] MCHC (RBC) [Mass/Vol] 32.0 g/dL Normal 32.0-35.0 [facility] Comment on above: Order Comment: No: D o not add to previous draw Performed By: #### 5 0608 ####[facility] [facility] [place] [address], [facility] MCV (RBC) [Entitic vol] 93.8 fL Normal 82.0-98.0 [facility] Comment on above: Order Comment: No: D o not add to previous draw Performed By: #### 5 0608 ####[facility] [facility].[address] Nucleated RBC/100 WBC (Bld) [Ratio] 0 % Normal 0-0 [facility] Comment on above: Order Comment: No: D o not add to previous draw Performed By: #### 5 0608 ####[facility] [facility] [place] [address], [facility] PLAT CNT 213 10*3/uL Normal 150-400 [facility] Comment on above: Order Comment: No: D o not add to previous draw Performed By: #### 5 0608 ####[place] [address] RBC (Bld) [#/Vol] 3.53 10*6/uL Low 4.20-5.70 [facility] Comment on above: Order Comment: No: D o not add to previous draw Performed By: #### 5 0608 ####[place] [address] WBC (Bld) [#/Vol] 7.64 10*3/uL Normal 4.00-10.60 [facility] Comment on above: Order Comment: No: D o not add to previous draw Performed By: #### 5 0608 ####[place] [address] MAGNESIUM BLOODon 04-12-2021 Magnesium [Mass/Vol] 1.9 mg/dL Normal 1.9-2.7 [facility] Comment on above: Order Comment: No: D o not add to previous draw Performed By: #### 1 0070, 89837 ####[place] [address] POC GLUCOSE LABon 04-12-2021 Glucose [Mass/Vol] 126 mg/dL High 70-100 [facility] Comment on above: Performed By: #### 8 5499 ####[facility] [facility] [place] [address], [facility] Glucose [Mass/Vol] 131 mg/dL High 70-100 [facility] Comment on above: Performed By: #### 8 5499 ####[facility] [facility] [place] [address], [facility] Glucose [Mass/Vol] 167 mg/dL High 70-100 [facility] Comment on above: Performed By: #### 8 5499 ####[facility] [facility] [place] [address], [facility] POC SARS COV2 ANTIGEN NEGATI VEon 04-12-2021 POC SARS COV2 ANTIGEN NEG Negative Normal NEGATIVE [facility] Comment on above: Result Comment: Nega tive [...] of clinicalsigns and symptoms consistent with COVID-19.The [employer] COVID-19 Ag Card is a lateral flow immunoassay intended forthe qualitative detection of nucleocapsid protein antigen [id number] in direct nasal swabs from individuals within [...] Certificate ofAccreditation. Performed By: #### 3 1977 ####[facility] [facility] [place] [address], [facility] POC SARS COV2 ANTIGEN NEG Negative Normal NEGATIVE [facility] Comment on above: Result Comment: Nega tive [...] of clinicalsigns and symptoms consistent with COVID-19.The [employer] COVID-19 Ag Card is a lateral flow immunoassay intended forthe qualitative detection of nucleocapsid protein antigen [id number]-[id number] in direct nasal swabs from individuals within [...] Certificate ofAccreditation. Performed By: #### 3 1977 ####[facility] PORTABLE CHEST 1 VIEWon 03-25 PORTABLE CHEST 1 VIEW Normal [facility] Comment on above: Order Comment: evalu ate for Atelectasis BASIC METABOLIC PANELon 03-24 Calcium [Mass/Vol] 7.9 mg/dL Low 8.6-10.3 [facility] Comment on above: Order Comment: No: D o not add to previous draw Performed By: #### 4 1000, 82302, 13565 ####[facility] Chloride [Moles/Vol] 100 mmol/L Normal 98-107 [facility] Comment on above: Order Comment: No: D o not add to previous draw Performed By: #### 4 1000, 18483, 12977 ####[facility]3000 [place] [address], [facility] CO2 [Moles/Vol] 27 mmol/L Normal 21-31 [facility] Comment on above: Order Comment: No: D o not add to previous draw Performed By: #### 4 1000, 30113, 91850 ####[facility] [facility] [place] [address], [facility] Creatinine [Mass/Vol] 0.80 mg/dL Normal 0.70-1.30 [facility] Comment on above: Order Comment: No: D o not add to previous draw Performed By: #### 4 1000, 05448, 84129 ####[place] [address] [facility] [place] [address], [facility] GFR/1.73 sq M.predicted among blacks MDRD (S/P/Bld) [Vol rate/Area] mL/min/{1.73_m2} Normal >60 [facility] Comment on above: Order Comment: No: D o not add to previous draw Result Comment: Calc ulation may not be valid for patients over 70 years Performed By: #### 4 1000, 52031, 44973 ####[place] [address] [facility] [place] [address], [facility] GFR/1.73 sq M.predicted among non-blacks MDRD (S/P/Bld) [Vol rate/Area] mL/min/{1.73_m2} Normal >60 [facility] Comment on above: Order Comment: No: D o not add to previous draw Result Comment: Calc ulation may not be valid for patients over 70 years Performed By: #### 4 1000, 62022, 22131 ####[facility] [facility] [address], [facility] Glucose [Mass/Vol] 135 mg/dL High 70-100 [facility] Comment on above: Order Comment: No: D o not add to previous draw Performed By: #### 4 1000, 29917, 23317 ####[facility] [place] [address], [facility] Potassium [Moles/Vol] 3.4 mmol/L Low 3.5-5.1 [facility] Comment on above: Order Comment: No: D o not add to previous draw Performed By: #### 4 1000, 24573, 56822 ####[facility] [place] [address], [facility] Sodium [Moles/Vol] 134 mmol/L Low 136-145 [facility] Comment on above: Order Comment: No: D o not add to previous draw Performed By: #### 4 999, 17355, 26565 ####[facility] [facility] [place] [address], [facility] Urea nitrogen [Mass/Vol] 21 mg/dL Normal 7-25 [facility] Comment on above: Order Comment: No: D o not add to previous draw Performed By: #### 4 999, 53953, 17741 ####[facility] [facility].[address] CBC COMPLETE BLOOD COUNTon 0 - Erythrocyte distribution width (RBC) [Ratio] 15.0 % Normal 11.5-15.0 [facility] Comment on above: Order Comment: No: D o not add to previous drawNurse draw Performed By: #### 5 0608 ####[facility] [facility].[address] Hematocrit (Bld) [Volume fraction] 32.0 % Low 39.0-50.0 [facility] Comment on above: Order Comment: No: D o not add to previous drawNurse draw Performed By: #### 5 0608 ####[place] [address] [facility] [place] [address], [facility] Hemoglobin (Bld) [Mass/Vol] 10.6 g/dL Low 13.0-17.0 [facility] Comment on above: Order Comment: No: D o not add to previous drawNurse draw Performed By: #### 5 0608 ####[facility] [facility].[address] MCH (RBC) [Entitic mass] 30.5 pg Normal 27.0-33.0 [facility] Comment on above: Order Comment: No: D o not add to previous drawNurse draw Performed By: #### 5 0608 ####[facility] [place] [address].[address] MCHC (RBC) [Mass/Vol] 33.1 g/dL Normal 32.0-35.0 [facility] Comment on above: Order Comment: No: D o not add to previous drawNurse draw Performed By: #### 5 0608 ####[address] MCV (RBC) [Entitic vol] 92.2 fL Normal 82.0-98.0 [facility] Comment on above: Order Comment: No: D o not add to previous drawNurse draw Performed By: #### 5 0608 ####[address] Nucleated RBC/100 WBC (Bld) [Ratio] 0 % Normal 0-0 [facility] Comment on above: Order Comment: No: D o not add to previous drawNurse draw Performed By: #### 5 0608 ####[address] PLAT CNT 182 10*3/uL Normal 150-400 [facility] Comment on above: Order Comment: No: D o not add to previous drawNurse draw Performed By: #### 5 0608 ####[address] RBC (Bld) [#/Vol] 3.47 10*6/uL Low 4.20-5.70 [facility] Comment on above: Order Comment: No: D o not add to previous drawNurse draw Performed By: #### 5 0608 ####[facility] [place] [address], [place] WBC (Bld) [#/Vol] 9.87 10*3/uL Normal 4.00-10.60 [facility] Comment on above: Order Comment: No: D o not add to previous drawNurse draw Performed By: #### 5 0608 ####[facility] [place] [address], [place] MAGNESIUM BLOODon 04-11-2021 Magnesium [Mass/Vol] 2.1 mg/dL Normal 1.9-2.7 [facility] Comment on above: Order Comment: No: D o not add to previous draw Performed By: #### 4 1000, 20381, 36677 ####[facility] [place] [address], [place] PHOSPHORUS BLOODon Phosphate [Mass/Vol] 3.7 mg/dL Normal 2.5-5.0 [facility] Comment on above: Order Comment: No: D o not add to previous draw Performed By: #### 4 1000, 37515, 12738 ####[facility] [place] [address], [place] POC GLUCOSE LABon 04-11-2021 Glucose [Mass/Vol] 137 mg/dL High 70-100 [facility] Comment on above: Performed By: #### 8 5499 ####[facility] [place] [address], [place] Glucose [Mass/Vol] 182 mg/dL High 70-100 [facility] Comment on above: Performed By: #### 8 5499 ####[facility] [place] [address], [place] Glucose [Mass/Vol] 171 mg/dL High 70-100 [facility] Comment on above: Performed By: #### 8 5499 ####[facility] [facility] [place] [address], [facility] Glucose [Mass/Vol] 142 mg/dL High 70-100 [facility] Comment on above: Performed By: #### 8 5499 ####[facility] [facility] [place] [address], [facility] PORTABLE CHEST 1 VIEWon 03-24 PORTABLE CHEST 1 VIEW Normal [facility] Comment on above: Order Comment: Evalu ate for Pneumothorax PORTABLE CHEST 1 VIEW Normal [facility] Comment on above: Order Comment: evalu ate for Pneumothorax BASIC METABOLIC PANELon 03-24 Calcium [Mass/Vol] 8.2 mg/dL Low 8.6-10.3 [facility] Comment on above: Order Comment: No: D o not add to previous drawNurse draw rn barbara Performed By: #### 4 999, 72862, 88232 ####[facility] [place] [address], [facility] Chloride [Moles/Vol] 104 mmol/L Normal 98-107 [facility] Comment on above: Order Comment: No: D o not add to previous drawNurse draw rn barbara Performed By: #### 4 999, 70368, 97509 ####[facility] [facility] [place] [address], [facility] CO2 [Moles/Vol] 27 mmol/L Normal 21-[address] [facility] Comment on above: Order Comment: No: D o not add to previous drawNurse draw rn barbara Performed By: #### 4 999, 26239, 78737 ####[facility] [place] [address], [facility] Creatinine [Mass/Vol] 0.76 mg/dL Normal 0.70-1.30 [facility] Comment on above: Order Comment: No: D o not add to previous drawNurse draw rn barbara Performed By: #### 4 999, 60904, 40772 ####[facility] [facility] [place] [address], [facility] GFR/1.73 sq M.predicted among blacks MDRD (S/P/Bld) [Vol rate/Area] mL/min/{1.73_m2} Normal >60 [facility] Comment on above: Order Comment: No: D o not add to previous drawNurse draw rn barbara Result Comment: Calc ulation may not be valid for patients over 70 years Performed By: #### 4 999, 02298, 90496 ####[facility] [facility] [id number], [facility] GFR/1.73 sq M.predicted among non-blacks MDRD (S/P/Bld) [Vol rate/Area] mL/min/{1.73_m2} Normal >60 [facility] Comment on above: Order Comment: No: D o not add to previous drawNurse draw rn barbara Result Comment: Calc ulation may not be valid for patients over 70 years Performed By: #### 4 999, 17492, 41104 ####[facility] [facility] [place] [address], [facility] Glucose [Mass/Vol] 109 mg/dL High 70-100 [facility] Comment on above: Order Comment: No: D o not add to previous drawNurse draw rn barbara Performed By: #### 4 999, 34695, 75696 ####[facility] [facility] [place] [address], [facility] Potassium [Moles/Vol] 4.0 mmol/L Normal 3.5-5.1 [facility] Comment on above: Order Comment: No: D o not add to previous drawNurse draw rn barbara Performed By: #### 4 999, 45345, 65445 ####[facility] [facility] [place] [address], [facility] Sodium [Moles/Vol] 135 mmol/L Low 136-145 [facility] Comment on above: Order Comment: No: D o not add to previous drawNurse draw rn barbara Performed By: #### 4 1000, 10009, 91178 ####[facility] [facility].[address] Urea nitrogen [Mass/Vol] 15 mg/dL Normal 7-25 [facility] Comment on above: Order Comment: No: D o not add to previous drawNurse draw rn barbara Performed By: #### 4 1000, 79134, 59065 ####[facility] CBC COMPLETE BLOOD COUNTon 04-10-2021 Erythrocyte distribution width (RBC) [Ratio] 14.7 % Normal 11.5-15.0 [facility] Comment on above: Order Comment: No: D o not add to previous drawNurse draw rn barbara Performed By: #### 5 0608 ####[facility] Hematocrit (Bld) [Volume fraction] 32.7 % Low 39.0-50.0 [facility] Comment on above: Order Comment: No: D o not add to previous drawNurse draw rn barbara Performed By: #### 5 0608 ####[facility] Hemoglobin (Bld) [Mass/Vol] 10.7 g/dL Low 13.0-17.0 [facility] Comment on above: Order Comment: No: D o not add to previous drawNurse draw rn barbara Performed By: #### 5 0608 ####[facility] [facility] [place] [address], [facility] MCH (RBC) [Entitic mass] 30.1 pg Normal 27.0-33.0 [facility] Comment on above: Order Comment: No: D o not add to previous drawNurse draw rn barbara Performed By: #### 5 0608 ####[facility] [facility].[address] MCHC (RBC) [Mass/Vol] 32.7 g/dL Normal 32.0-35.0 [facility] Comment on above: Order Comment: No: D o not add to previous drawNurse draw rn barbara Performed By: #### 5 0608 ####[facility] [facility].[address] MCV (RBC) [Entitic vol] 92.1 fL Normal 82.0-98.0 [facility] Comment on above: Order Comment: No: D o not add to previous drawNurse draw rn barbara Performed By: #### 5 0608 ####[place] [address] [address] Nucleated RBC/100 WBC (Bld) [Ratio] 0 % Normal 0-0 [facility] Comment on above: Order Comment: No: D o not add to previous drawNurse draw rn barbara Performed By: #### 5 0608 ####[place] [address] [address] PLAT CNT 176 10*3/uL Normal 150-400 The [facility] Comment on above: Order Comment: No: D o not add to previous drawNurse draw rn barbara Performed By: #### 5 0608 ####[address] RBC (Bld) [#/Vol] 3.55 10*6/uL Low 4.20-5.70 [facility] Comment on above: Order Comment: No: D o not add to previous drawNurse draw rn barbara Performed By: #### 5 0608 ####[address] [place] [address], [facility] WBC (Bld) [#/Vol] 12.43 10*3/uL High 4.00-10.60 [facility] Comment on above: Order Comment: No: D o not add to previous drawNurse draw rn barbara Performed By: #### 5 0608 ####[facility] [place] [address], [facility] COOXIMETRYon 04-10-2021 COHB 1 % Normal [facility] Comment on above: Performed By: #### 7 0207 ####[facility] [place] [address], [facility] METHB 0 % Normal [facility] Comment on above: Performed By: #### 7 0207 ####[facility] [place] [address], [facility] Oxygen saturation in Blood 68.2 % Normal 65.0-75.0 [facility] Comment on above: Performed By: #### 7 0207 ####[facility] [place] [address], [facility] THB 13.1 g/dL Normal [facility] Comment on above: Performed By: #### 7 0207 ####[facility]3000 [place] [address], [facility] LACTATE BLOODon 04-10-2021 Lactate [Moles/Vol] 0.7 mmol/L Normal .5-2.2 The [facility] Comment on above: Order Comment: No: D o not add to previous drawNurse draw rn barbara Performed By: #### 1 0054 ####[facility] [place] [address], [facility] MAGNESIUM BLOODon 04-10-2021 Magnesium [Mass/Vol] 2.3 mg/dL Normal 1.9-2.7 The [facility] Comment on above: Order Comment: No: D o not add to previous drawNurse draw rn barbara Performed By: #### 4 1000, 86115, 01943 ####[facility] [place] [address], [facility] PHOSPHORUS BLOODon Phosphate [Mass/Vol] 3.9 mg/dL Normal 2.5-5.0 The [facility] Comment on above: Order Comment: No: D o not add to previous drawNurse draw sumit [place] Performed By: #### 4 1000, 86307, 54385 ####[facility] [place] [address], [place] POC GLUCOSE LABon 04-10-2021 Glucose [Mass/Vol] 168 mg/dL High 70-100 [facility] Comment on above: Performed By: #### 8 5499 ####[facility] [place] [address], [place] Glucose [Mass/Vol] 131 mg/dL High 70-100 [facility] Comment on above: Performed By: #### 8 5499 ####[facility] [place] [address], [place] Glucose [Mass/Vol] 123 mg/dL High 70-100 [facility] Comment on above: Performed By: #### 8 5499 ####[facility] [place] [address], [place] Glucose [Mass/Vol] 170 mg/dL High 70-100 [facility] Comment on above: Performed By: #### 8 5499 ####[facility] [place] [address], [place] Glucose [Mass/Vol] 131 mg/dL High 70-100 [facility] Comment on above: Performed By: #### 8 5499 ####[facility] [place] [address], [place] Glucose [Mass/Vol] 123 mg/dL High 70-100 [facility] Comment on above: Performed By: #### 8 5499 ####[facility] [place] [address], [place] Glucose [Mass/Vol] 92 mg/dL Normal 70-100 The [facility] Comment on above: Performed By: #### 8 5499 ####[facility] [place] [address], [place] Glucose [Mass/Vol] 99 mg/dL Normal 70-100 [facility] Comment on above: Performed By: #### 8 5499 ####[facility] [place] [address], [place] Glucose [Mass/Vol] 124 mg/dL High 70-100 [facility] Comment on above: Performed By: #### 8 5499 ####[facility] [place] [address], [place] Glucose [Mass/Vol] 141 mg/dL High 70-100 [facility] Comment on above: Performed By: #### 8 5499 ####[facility] [place] [address], [place] Glucose [Mass/Vol] 143 mg/dL High 70-100 [facility] Comment on above: Performed By: #### 8 5499 ####[facility] [facility] [address], [place] PORTABLE CHEST 1 VIEWon 03-24 PORTABLE CHEST 1 VIEW Normal The [facility] Comment on above: Order Comment: Check Chest Tube Position, s/p mediasteinal tube removal PORTABLE CHEST 1 VIEW Normal [facility] Comment on above: Order Comment: evalu ate for Atelectasis APTTon 04-09-2021 aPTT Coag (Bld) [Time] 28.6 s Normal 25.0-35.0 [facility] Comment on above: Order Comment: post op [...] THIS PURPOSE. Performed By: #### 5 7307, 07816 ####[facility] [place] [address], [facility] ARTERIAL BLOOD GAS WITH ICAo n 04-09-2021 [employer]ERY SYSTEMS NC Normal The [facility] Comment on above: Performed By: #### 8 4511 ####[facility] [place] [address], [facility] IONIZED CALCIUM 1.15 mmol/L Normal 1.13-1.32 The [facility] Comment on above: Performed By: #### 8 4511 ####[facility] [place] [address], [facility] LPM 4.0 LPM Normal [facility] Comment on above: Performed By: #### 8 4511 ####[facility] [place] [address], [facility] Oxygen (Bld) [Partial pressure] 63 mm[Hg] Low 83-108 [facility] Comment on above: Performed By: #### 8 4511 ####[facility] [place] [address], [facility] Oxygen saturation in Blood 94.2 % Normal 94.0-97.0 [facility] Comment on above: Performed By: #### 8 4511 ####[facility] [place] [address], [facility] BASE EXCESS 3 mmol/L Normal -2-3 The [facility] Comment on above: Performed By: #### 8 4511 ####[facility] [place] [address], [facility] DELIVERY SYSTEMS MV Normal The [facility] Comment on above: Performed By: #### 8 4511 ####[facility] [place] [address], [facility] FIO2 40 % Normal [facility] Comment on above: Performed By: #### 8 4511 ####[facility] [place] [address], [place] HCO3 (Bld) [Moles/Vol] 27 mmol/L Normal 21-28 [facility] Comment on above: Performed By: #### 8 4511 ####[facility] [place] [address], [place] IONIZED CALCIUM 1.17 mmol/L Normal 1.13-1.32 [facility] Comment on above: Performed By: #### 8 4511 ####[facility] [place] [address], [place] MIN VOLUME 14.0 Normal [facility] Comment on above: Performed By: #### 8 4511 ####[facility] [place] [address], [place] MODALITY SPONT Normal [facility] Comment on above: Performed By: #### 8 4511 ####[facility] [place] [address], [place] Oxygen (Bld) [Partial pressure] 79 mm[Hg] Low 83-108 [facility] Comment on above: Performed By: #### 8 4511 ####[facility] [place] [address], [place] Oxygen saturation in Blood 96.5 % Normal 94.0-97.0 [facility] Comment on above: Performed By: #### 8 4511 ####[facility] [place] [address], [place] PCO2 37 mmHg Normal 35-45 [facility] Comment on above: Performed By: #### 8 4511 ####[facility] [place] [address], [facility] PEEP 5.0 CMH20 Normal [facility] Comment on above: Performed By: #### 8 4511 ####[facility] [place] [address], [place] PF RATIO 198 mmHg Normal [facility] Comment on above: Performed By: #### 8 4511 ####[facility] [place] [address], [facility] pH (Bld) 7.47 [pH] High 7.35-7.45 [facility] Comment on above: Performed By: #### 8 4511 ####[facility] [place] [address], [facility] PRESSURE SUPPORT 5 Normal [facility] Comment on above: Performed By: #### 8 4511 ####[facility] [place] [address], [facility] BASE EXCESS 2 mmol/L Normal -2-3 [facility] Comment on above: Performed By: #### 8 4511 ####[facility] [place] [address], [facility] DELIVERY SYSTEMS MV Normal [facility] Comment on above: Performed By: #### 8 4511 ####[facility] [place] [address], [facility] FIO2 50 % Normal [facility] Comment on above: Performed By: #### 8 4511 ####[facility] [place] [address], [facility] HCO3 (Bld) [Moles/Vol] 26 mmol/L Normal 21-28 [facility] Comment on above: Performed By: #### 8 4511 ####[facility] [place] [address], [facility] IONIZED CALCIUM 1.17 mmol/L Normal 1.13-1.32 [facility] Comment on above: Performed By: #### 8 4511 ####[facility] [place] [address], [facility] MIN VOLUME 13.3 Normal [facility] Comment on above: Performed By: #### 8 4511 ####[facility] [place] [address], [facility] MODALITY SIMV Normal [facility] Comment on above: Performed By: #### 8 4511 ####[facility] [place] [address], [facility] Oxygen (Bld) [Partial pressure] 79 mm[Hg] Low 83-108 The [facility] Comment on above: Performed By: #### 8 4511 ####[facility] [place] [address], [facility] Oxygen saturation in Blood 96.8 % Normal 94.0-97.0 [facility] Comment on above: Performed By: #### 8 4511 ####[facility] [place] [address], [facility] PCO2 36 mmHg Normal 35-45 [facility] Comment on above: Performed By: #### 8 4511 ####[facility] [place] [address], [facility] PEEP 8.0 CMH20 Normal [facility] Comment on above: Performed By: #### 8 4511 ####[facility] [place] [address], [place] PF RATIO 158 mmHg Normal [facility] Comment on above: Performed By: #### 8 4511 ####[facility] [place] [address], [facility] pH (Bld) 7.46 [pH] High 7.35-7.45 [facility] Comment on above: Performed By: #### 8 4511 ####[facility] [facility].[address] PRESSURE SUPPORT 10 Normal [facility] Comment on above: Performed By: #### 8 4511 ####[facility] Respiratory rate 18 /min Normal [facility] Comment on above: Performed By: #### 8 4511 ####[facility] [facility].[address] TIDAL VOLUME (VT) CC 700 Normal [facility] Comment on above: Performed By: #### 8 4511 ####[facility] [facility].[address] BASE EXCESS -4 mmol/L Low -2-3 [facility] Comment on above: Performed By: #### 8 4511 ####[facility] [facility].[address] DELIVERY SYSTEMS MV Normal [facility] Comment on above: Performed By: #### 8 4511 ####[facility] [facility] [place] [address], [facility] FIO2 80 % Normal [facility] Comment on above: Performed By: #### 8 4511 ####[facility] [facility] [place] [address], [facility] HCO3 (Bld) [Moles/Vol] 20 mmol/L Low 21-28 [facility] Comment on above: Performed By: #### 8 4511 ####[facility] [place] [address], [facility] IONIZED CALCIUM 1.14 mmol/L Normal 1.13-1.32 [facility] Comment on above: Performed By: #### 8 4511 ####[facility] [place] [address], [facility] MIN VOLUME 13.5 Normal [facility] Comment on above: Performed By: #### 8 4511 ####[facility] [place] [address], [place] MODALITY SIMV Normal [facility] Comment on above: Performed By: #### 8 4511 ####[facility] [place] [address], [facility] Oxygen (Bld) [Partial pressure] 121 mm[Hg] Critically high 83-108 [facility] Comment on above: Performed By: #### 8 4511 ####[facility] [place] [address], [facility] Oxygen saturation in Blood 97.1 % High 94.0-97.0 [facility] Comment on above: Performed By: #### 8 4511 ####[facility] [place] [address], [place] PCO2 34 mmHg Low 35-45 [facility] Comment on above: Performed By: #### 8 4511 ####[facility] [place] [address], [place] PEEP 8.0 CMH20 Normal [facility] Comment on above: Performed By: #### 8 4511 ####[facility] [place] [address], [place] pH (Bld) 7.38 [pH] Normal 7.35-7.45 [facility] Comment on above: Performed By: #### 8 4511 ####[facility] [place] [address], [place] PRESSURE SUPPORT 10 Normal [facility] Comment on above: Performed By: #### 8 4511 ####[facility] [place] [address], [facility] Respiratory rate 18 /min Normal [facility] Comment on above: Performed By: #### 8 4511 ####[facility] [place] [address], [facility] TIDAL VOLUME (VT) CC 700 Normal [facility] Comment on above: Performed By: #### 8 4511 ####[facility] [place] [address], [facility] BASE EXCESS -8 mmol/L Low -2-3 The [facility] Comment on above: Performed By: #### 8 4511 ####[facility] [place] [address], [facility] DELIVERY SYSTEMS MV Normal [facility] Comment on above: Performed By: #### 8 4511 ####[facility] [place] [address], [facility] FIO2 80 % Normal [facility] Comment on above: Performed By: #### 8 4511 ####[facility] [place] [address], [facility] HCO3 (Bld) [Moles/Vol] 18 mmol/L Low 21-28 [facility] Comment on above: Performed By: #### 8 4511 ####[facility] [place] [address], [place] IONIZED CALCIUM 1.06 mmol/L Low 1.13-1.32 [facility] Comment on above: Performed By: #### 8 4511 ####[facility] [place] [address], [place] MIN VOLUME 16.6 Normal [facility] Comment on above: Performed By: #### 8 4511 ####[facility] [place] [address], [facility] MODALITY SIMV Normal [facility] Comment on above: Performed By: #### 8 4511 ####[facility] [place] [address], [facility] Oxygen (Bld) [Partial pressure] 86 mm[Hg] Normal 83-108 [facility] Comment on above: Performed By: #### 8 4511 ####[facility] [place] [address], [facility] Oxygen saturation in Blood 96.6 % Normal 94.0-97.0 [facility] Comment on above: Performed By: #### 8 4511 ####[place] [address] [place] [address], [facility] PCO2 34 mmHg Low 35-45 [facility] Comment on above: Performed By: #### 8 4511 ####[facility] [place] [address], [place] PEEP 8.0 CMH20 Normal [facility] Comment on above: Performed By: #### 8 4511 ####[facility] [place] [address], [place] PF RATIO 108 mmHg Normal [facility] Comment on above: Performed By: #### 8 4511 ####[facility] [facility] [address], [facility] pH (Bld) 7.32 [pH] Low 7.35-7.45 [facility] Comment on above: Performed By: #### 8 4511 ####[facility] [place] [address], [facility] PRESSURE SUPPORT 10 Normal [facility] Comment on above: Performed By: #### 8 4511 ####[facility] [place] [address], [facility] Respiratory rate 18 /min Normal [facility] Comment on above: Performed By: #### 8 4511 ####[facility] [place] [address], [facility] TIDAL VOLUME (VT) CC 700 Normal [facility] Comment on above: Performed By: #### 8 4511 ####[facility] [place] [address], [facility] BASIC METABOLIC PANELon 03-24 Calcium [Mass/Vol] 8.0 mg/dL Low 8.6-10.3 [facility] Comment on above: Order Comment: No: D o not add to previous draw Performed By: #### 0 0071, 03169 ####[facility] [place] [address], [facility] Chloride [Moles/Vol] 107 mmol/L Normal 98-107 [facility] Comment on above: Order Comment: No: D o not add to previous draw Performed By: #### 0 0071, 41770 ####[facility] [place] [address], [facility] CO2 [Moles/Vol] 26 mmol/L Normal 21-[address] [facility] Comment on above: Order Comment: No: D o not add to previous draw Performed By: #### 0 0071, 97880 ####[facility] [place] [address], [facility] Creatinine [Mass/Vol] 0.90 mg/dL Normal 0.70-1.30 [facility] Comment on above: Order Comment: No: D o not add to previous draw Performed By: #### 0 0071, 30801 ####[facility] [place] [address], [facility] GFR/1.73 sq M.predicted among blacks MDRD (S/P/Bld) [Vol rate/Area] mL/min/{1.73_m2} Normal >60 [facility] Comment on above: Order Comment: No: D o not add to previous draw Result Comment: Calc ulation may not be valid for patients over 70 years Performed By: #### 0 0071, 33490 ####[facility] [place] [address], [facility] GFR/1.73 sq M.predicted among non-blacks MDRD (S/P/Bld) [Vol rate/Area] mL/min/{1.73_m2} Normal >60 [facility] Comment on above: Order Comment: No: D o not add to previous draw Result Comment: Calc ulation may not be valid for patients over 70 years Performed By: #### 0 0071, 90814 ####[facility] [place] [address], [facility] Glucose [Mass/Vol] 126 mg/dL High 70-100 [facility] Comment on above: Order Comment: No: D o not add to previous draw Performed By: #### 0 0071, 90548 ####[facility] [place] [address], [facility] Potassium [Moles/Vol] 3.8 mmol/L Normal 3.5-5.1 [facility] Comment on above: Order Comment: No: D o not add to previous draw Performed By: #### 0 0071, 11679 ####[facility] [place] [address], [place] Sodium [Moles/Vol] 136 mmol/L Normal 136-145 [facility] Comment on above: Order Comment: No: D o not add to previous draw Performed By: #### 0 0071, 66684 ####[facility] [place] [address], [place] Urea nitrogen [Mass/Vol] 21 mg/dL Normal 7-25 [facility] Comment on above: Order Comment: No: D o not add to previous draw Performed By: #### 0 0071, 54179 ####[facility] [place] [address], [place] Calcium [Mass/Vol] 7.8 mg/dL Low 8.6-10.3 [facility] Comment on above: Order Comment: post op day 1No: Do not add to previous draw Performed By: #### 1 69, 60689 ####[facility] [id number], [place] Chloride [Moles/Vol] 103 mmol/L Normal 98-107 [facility] Comment on above: Order Comment: post op day 1No: Do not add to previous draw Performed By: #### 1 69, 52763 ####[facility] [place] [address], [facility] CO2 [Moles/Vol] 20 mmol/L Low 21-31 [facility] Comment on above: Order Comment: post op day 1No: Do not add to previous draw Performed By: #### 1 69, 03029 ####[facility] [place] [address], [facility] Creatinine [Mass/Vol] 1.25 mg/dL Normal 0.70-1.30 [facility] Comment on above: Order Comment: post op day 1No: Do not add to previous draw Performed By: #### 1 69, 76358 ####[facility] [place] [address], [place] eGFR- non- 56 ml/min/1.73sq m Abnormal >60 [facility] Comment on above: Order Comment: post op day 1No: Do not add to previous draw Result Comment: Calc ulation may not be valid for patients over 70 years Performed By: #### 1 69, 26164 ####[facility] [place] [address], [place] GFR/1.73 sq M.predicted among blacks MDRD (S/P/Bld) [Vol rate/Area] mL/min/{1.73_m2} Normal >60 [facility] Comment on above: Order Comment: post op day 1No: Do not add to previous draw Result Comment: Calc ulation may not be valid for patients over 70 years Performed By: #### 1 0, [id number] ####[facility] [facility] [place] [address], [facility] Glucose [Mass/Vol] 331 mg/dL High 70-100 [facility] Comment on above: Order Comment: post op day 1No: Do not add to previous draw Performed By: #### 1 69, 16096 ####[facility] [facility] [place] [address], [facility] Potassium [Moles/Vol] 3.2 mmol/L Low 3.5-5.1 [facility] Comment on above: Order Comment: post op day 1No: Do not add to previous draw Performed By: #### 1 69, 80182 ####[facility] [facility] [place] [address], [facility] Sodium [Moles/Vol] 135 mmol/L Low 136-145 [facility] Comment on above: Order Comment: post op day 1No: Do not add to previous draw Performed By: #### 1 69, 97497 ####[facility] [facility] [place] [address], [facility] Urea nitrogen [Mass/Vol] 24 mg/dL Normal 7-25 [facility] Comment on above: Order Comment: post op day 1No: Do not add to previous draw Performed By: #### 1 69, 22133 ####[facility] [facility] [place] [address], [facility] CBC COMPLETE BLOOD COUNTon 0 8- Erythrocyte distribution width (RBC) [Ratio] 14.6 % Normal 11.5-15.0 [facility] Comment on above: Order Comment: post op day 1No: Do not add to previous draw Performed By: #### 5 0608 ####[facility] [facility].[address] Hematocrit (Bld) [Volume fraction] 30.5 % Low 39.0-50.0 [facility] Comment on above: Order Comment: post op day 1No: Do not add to previous draw Performed By: #### 5 0608 ####[facility] [facility].[address] Hemoglobin (Bld) [Mass/Vol] 10.2 g/dL Low 13.0-17.0 [facility] Comment on above: Order Comment: post op day 1No: Do not add to previous draw Performed By: #### 5 0608 ####[facility] MCH (RBC) [Entitic mass] 30.9 pg Normal 27.0-33.0 [facility] Comment on above: Order Comment: post op day 1No: Do not add to previous draw Performed By: #### 5 0608 ####[facility] [facility].[address] MCHC (RBC) [Mass/Vol] 33.4 g/dL Normal 32.0-35.0 [facility] Comment on above: Order Comment: post op day 1No: Do not add to previous draw Performed By: #### 5 0608 ####[facility] [facility] [place] [address], [facility] MCV (RBC) [Entitic vol] 92.4 fL Normal 82.0-98.0 [facility] Comment on above: Order Comment: post op day 1No: Do not add to previous draw Performed By: #### 5 0608 ####[facility] [facility] [place] [address], [facility] Nucleated RBC/100 WBC (Bld) [Ratio] 0 % Normal 0-0 The [facility] Comment on above: Order Comment: post op day 1No: Do not add to previous draw Performed By: #### 5 0608 ####[facility] [place] [address], [facility] PLAT CNT 232 10*3/uL Normal 150-400 The [facility] Comment on above: Order Comment: post op day 1No: Do not add to previous draw Performed By: #### 5 0608 ####[facility] [place] [address], [facility] RBC (Bld) [#/Vol] 3.30 10*6/uL Low 4.20-5.70 The [facility] Comment on above: Order Comment: post op day 1No: Do not add to previous draw Performed By: #### 5 0608 ####[facility] [facility] [place] [address], [facility] WBC (Bld) [#/Vol] 17.37 10*3/uL High 4.00-10.60 [facility] Comment on above: Order Comment: post op day 1No: Do not add to previous draw Performed By: #### 5 0608 ####[facility] [place] [address], [facility] CBC W/DIFFon 04-09-2021 ABS IMM GRANS 0.1 10*3/uL Normal 0.0-0.2 The [facility] Comment on above: Order Comment: No: D o not add to previous draw Performed By: #### 5 0103 ####[facility] [facility] [place] [address], [facility] ABS NEUTROPHILS 8.3 10*3/uL High 1.6-7.6 The [facility] Comment on above: Order Comment: No: D o not add to previous draw Performed By: #### 5 0103 ####[facility] [place] [address], [facility] Basophils (Bld) [#/Vol] 0.0 10*3/uL Normal 0.0-0.2 The [facility] Comment on above: Order Comment: No: D o not add to previous draw Performed By: #### 5 0103 ####[facility] [facility] [place] [address], [facility] Basophils/100 WBC (Bld) 0.1 % Normal 0.0-1.0 The [facility] Comment on above: Order Comment: No: D o not add to previous draw Performed By: #### 5 0103 ####[facility] [place] [address], [facility] Eosinophils (Bld) [#/Vol] 0.0 10*3/uL Normal 0.0-0.5 The [facility] Comment on above: Order Comment: No: D o not add to previous draw Performed By: #### 5 0103 ####[facility] [place] [address], [facility] Eosinophils/100 WBC (Bld) 0.0 % Normal 0.0-6.0 The [facility] Comment on above: Order Comment: No: D o not add to previous draw Performed By: #### 5 3 ####[facility] Erythrocyte distribution width (RBC) [Ratio] 14.4 % Normal 11.5-15.0 The [facility] Comment on above: Order Comment: No: D o not add to previous draw Performed By: #### 5 0103 ####[place] [id number] [place] [address], [facility] Hematocrit (Bld) [Volume fraction] 28.9 % Low 39.0-50.0 The [facility] Comment on above: Order Comment: No: D o not add to previous draw Performed By: #### 5 0103 ####[facility] Hemoglobin (Bld) [Mass/Vol] 9.6 g/dL Low 13.0-17.0 The [facility] Comment on above: Order Comment: No: D o not add to previous draw Performed By: #### 5 3 ####[facility] [place] [address], [facility] IMMATURE GRANS 0.5 % Normal 0.0-1.0 The [facility] Comment on above: Order Comment: No: D o not add to previous draw Performed By: #### 5 3 ####[address] Lymphocytes (Bld) [#/Vol] 1.3 10*3/uL Normal 1.2-4.0 The [facility] Comment on above: Order Comment: No: D o not add to previous draw Performed By: #### 5 3 ####[address] Lymphocytes/100 WBC (Bld) 12.1 % Low 20.0-45.0 The [facility] Comment on above: Order Comment: No: D o not add to previous draw Performed By: #### 5 3 ####[facility] MCH (RBC) [Entitic mass] 30.6 pg Normal 27.0-33.0 [facility] Comment on above: Order Comment: No: D o not add to previous draw Performed By: #### 5 0103 ####[facility] MCHC (RBC) [Mass/Vol] 33.2 g/dL Normal 32.0-35.0 [facility] Comment on above: Order Comment: No: D o not add to previous draw Performed By: #### 5 3 ####[facility] [place] [address], [facility] MCV (RBC) [Entitic vol] 92.0 fL Normal 82.0-98.0 [facility] Comment on above: Order Comment: No: D o not add to previous draw Performed By: #### 5 0103 ####[facility] [facility] [place] [address], [facility] Monocytes (Bld) [#/Vol] 1.2 10*3/uL High 0.1-1.0 [facility] Comment on above: Order Comment: No: D o not add to previous draw Performed By: #### 5 0103 ####[facility] [place] [address], [facility] MONOS 10.9 % Normal 5.0-12.0 [facility] Comment on above: Order Comment: No: D o not add to previous draw Performed By: #### 5 0103 ####[facility] [facility] [place] [address], [facility] Neutrophils/100 WBC (Bld) 76.4 % High 40.0-72.0 [facility] Comment on above: Order Comment: No: D o not add to previous draw Performed By: #### 5 3 ####[facility] [facility] [place] [address], [facility] Nucleated RBC/100 WBC (Bld) [Ratio] 0 % Normal 0-0 [facility] Comment on above: Order Comment: No: D o not add to previous draw Performed By: #### 5 0103 ####[facility] [facility] [place] [address], [facility] PLAT CNT 175 10*3/uL Normal 150-400 The [facility] Comment on above: Order Comment: No: D o not add to previous draw Performed By: #### 5 3 ####[facility] [facility] [place] [address], [facility] RBC (Bld) [#/Vol] 3.14 10*6/uL Low 4.20-5.70 The [facility] Comment on above: Order Comment: No: D o not add to previous draw Performed By: #### 5 0103 ####[facility] [place] [address], [place] WBC (Bld) [#/Vol] 10.92 10*3/uL High 4.00-10.60 The [facility] Comment on above: Order Comment: No: D o not add to previous draw Performed By: #### 5 0103 ####[facility] [facility] [place] [address], [facility] LACTATE BLOODon 04-09-2021 Lactate [Moles/Vol] 0.9 mmol/L Normal .5-2.2 The [facility] Comment on above: Order Comment: No: D o not add to previous draw Performed By: #### 1 0054 ####[facility] [facility] [place] [address], [facility] Lactate [Moles/Vol] 3.8 mmol/L High .5-2.2 The [facility] Comment on above: Order Comment: No: D o not add to previous draw Result Comment: M-CR ITICAL RESULT(S) REVIEWED, CALLED TO AND READ BACK BY [employer] DRIVER 0855 Performed By: #### 1 0054 ####[facility] [place] [address], [facility] Lactate [Moles/Vol] 7.1 mmol/L Critically high .5-2.2 The [facility] Comment on above: Order Comment: post op day 1No: Do not add to previous draw Result Comment: M-IN EVIOUS CRITICAL RESULT Performed By: #### 1 0054 ####[facility] [place] [address], [place] MAGNESIUM BLOODon 04-09-2021 Magnesium [Mass/Vol] 2.3 mg/dL Normal 1.9-2.7 The [facility] Comment on above: Order Comment: No: D o not add to previous draw Performed By: #### 1 0070, 07950 ####[facility] [place] [address], [place] Magnesium [Mass/Vol] 2.2 mg/dL Normal 1.9-2.7 [facility] Comment on above: Order Comment: added from prior Performed By: #### 0 0071, 31666 ####[facility] [place] [address], [place] Magnesium [Mass/Vol] 2.4 mg/dL Normal 1.9-2.7 [facility] Comment on above: Order Comment: post op day 1No: Do not add to previous draw Performed By: #### 1 0070, 70011 ####[facility] [place] [address], [facility] Operative Reporton Operative Report Normal The [facility] POC GLUCOSE LABon 04-09-2021 Glucose [Mass/Vol] 162 mg/dL High 70-100 The [facility] Comment on above: Performed By: #### 8 5499 ####[facility] [place] [address], [place] Glucose [Mass/Vol] 128 mg/dL High 70-100 The [facility] Comment on above: Performed By: #### 8 5499 ####[facility] [place] [address], [place] Glucose [Mass/Vol] 117 mg/dL High 70-100 The [facility] Comment on above: Performed By: #### 8 5499 ####[facility] [place] [address], [place] Glucose [Mass/Vol] 110 mg/dL High 70-100 [facility] Comment on above: Performed By: #### 8 5499 ####[facility] [place] [address], [place] Glucose [Mass/Vol] 65 mg/dL Low 70-100 [facility] Comment on above: Performed By: #### 8 5499 ####[facility] [place] [address], [place] Glucose [Mass/Vol] 86 mg/dL Normal 70-100 [facility] Comment on above: Performed By: #### 8 5499 ####[facility] [place] [address], [place] Glucose [Mass/Vol] 127 mg/dL High 70-100 [facility] Comment on above: Performed By: #### 8 5499 ####[facility] [place] [address], [place] Glucose [Mass/Vol] 230 mg/dL High 70-100 [facility] Comment on above: Performed By: #### 8 5499 ####[facility] [place] [address], [place] Glucose [Mass/Vol] 244 mg/dL High 70-100 [facility] Comment on above: Performed By: #### 8 5499 ####[facility] [place] [address], [place] Glucose [Mass/Vol] 283 mg/dL High 70-100 [facility] Comment on above: Performed By: #### 8 5499 ####[facility] [place] [address], [place] Glucose [Mass/Vol] 326 mg/dL High 70-100 [facility] Comment on above: Performed By: #### 8 5499 ####[facility] [place] [address], [place] Glucose [Mass/Vol] 347 mg/dL High 70-100 [facility] Comment on above: Performed By: #### 8 5499 ####[facility] [place] [address], [place] Glucose [Mass/Vol] 258 mg/dL High 70-100 [facility] Comment on above: Performed By: #### 8 5499 ####[facility] [place] [address], [place] Glucose [Mass/Vol] 334 mg/dL High 70-100 [facility] Comment on above: Performed By: #### 8 5499 ####[facility] [place] [address], [place] Glucose [Mass/Vol] 338 mg/dL High 70-100 [facility] Comment on above: Performed By: #### 8 5499 ####[facility] [place] [address], [place] Glucose [Mass/Vol] 321 mg/dL High 70-100 The [facility] Comment on above: Performed By: #### 8 5499 ####[facility] [place] [address], [place] Glucose [Mass/Vol] 302 mg/dL High 70-100 [facility] Comment on above: Performed By: #### 8 5499 ####[facility] [place] [address], [place] PORTABLE CHEST 1 VIEWon 03-24 PORTABLE CHEST 1 VIEW Normal The [facility] Comment on above: Order Comment: Check Chest Tube Position POTASSIUM BLOODon 04-09-2021 Potassium [Moles/Vol] 4.6 mmol/L Normal 3.5-5.1 [facility] Comment on above: Order Comment: No: D o not add to previous draw Performed By: #### 1 0070, [id number] ####[facility] [facility].[address] PROTHROMBIN TIMEon 1 INR Coag (PPP) [Relative time] 1.22 {INR} High 0.91-1.16 [facility] Comment on above: Order Comment: post op [...] OF ACTION, CLINICALEFFECTIVENESS, AND OPTIMAL THERAPEUTIC RANGE. [id number]. Performed By: #### 5 7307, 93367 ####[facility] [facility].[address] PT Coag (PPP) [Time] 15.4 s High 12.3-14.8 [facility] Comment on above: Order Comment: post op day 1No: Do not add to previous draw Result Comment: ALL RESULTS MUST BE INTERPRETED WITH RESPECT TO BLOOD DRAWING ARTIFACTOR DILUTION ERROR OF ANTICOAGULANT AT THE TIME OF SAMPLING. Performed By: #### 5 7307, [id number] ####[facility] [facility] [place] [address], [facility] ACTIVATED CLOTTING TIMEon ACTIVATED CLOTTING TIME 121 sec Normal 82-152 [facility] Comment on above: Performed By: #### 3 0739 ####[facility] [place] [address], [facility] ACTIVATED CLOTTING TIME 305 sec High 82-152 [facility] Comment on above: Performed By: #### 3 0739 ####[facility] [place] [address], [facility] ACTIVATED CLOTTING TIME 286 sec High 82-152 [facility] Comment on above: Performed By: #### 3 0739 ####[facility] [place] [address], [facility] ACTIVATED CLOTTING TIME 279 sec High 82-152 [facility] Comment on above: Performed By: #### 3 0739 ####[facility] [place] [address], [facility] ACTIVATED CLOTTING TIME 325 sec High 82-152 [facility] Comment on above: Performed By: #### 3 0739 ####[facility] [place] [address], [facility] ACTIVATED CLOTTING TIME 184 sec High 82-152 [facility] Comment on above: Performed By: #### 3 0739 ####[facility] [place] [address], [facility] ACTIVATED CLOTTING TIME 121 sec Normal 82-152 [facility] Comment on above: Performed By: #### 3 0739 ####[facility] [place] [address], [facility] APTTon 04-08-2021 aPTT Coag (Bld) [Time] 30.4 s Normal 25.0-35.0 [facility] Comment on above: Order Comment: [...] THIS PURPOSE. Performed By: #### 5 6101, 73100 ####[facility] aPTT Coag (Bld) [Time] 30.6 s Normal 25.0-35.0 [facility] Comment on above: Result Comment: ALL [...] THIS PURPOSE. Performed By: #### 5 7307, 83631, 87877 ####[facility] ARTERIAL BLOOD GAS WITH ICAo n 04-08-2021 BASE EXCESS -4 mmol/L Low -2-3 [facility] Comment on above: Order Comment: on ar rival to CVU Performed By: #### 8 4511 ####[facility] [facility].[address] DELIVERY SYSTEMS MV Normal [facility] Comment on above: Order Comment: on ar rival to CVU Performed By: #### 8 4511 ####[facility] [place] [address], [facility] FIO2 70 % Normal [facility] Comment on above: Order Comment: on ar rival to CVU Performed By: #### 8 4511 ####[facility] [place] [address], [facility] HCO3 (Bld) [Moles/Vol] 21 mmol/L Normal 21-28 [facility] [place] [facility] Comment on above: Order Comment: on ar rival to CVU Performed By: #### 8 4511 ####[facility] [place] [address], [facility] IONIZED CALCIUM 1.09 mmol/L Low 1.13-1.32 The [facility] Comment on above: Order Comment: on ar rival to CVU Performed By: #### 8 4511 ####[facility] [place] [address], [facility] MIN VOLUME 14.2 Normal [facility] Comment on above: Order Comment: on ar rival to CVU Result Comment: Resu lt changed by DOTTY on 04/08/2021 19:16. The previous value was16.0. Performed By: #### 8 4511 ####[facility] [place] [address], [facility] MODALITY SIMV Normal [facility] Comment on above: Order Comment: on ar rival to CVU Performed By: #### 8 4511 ####[facility] [place] [address], [facility] Oxygen (Bld) [Partial pressure] 69 mm[Hg] Low 83-108 The [facility] Comment on above: Order Comment: on ar rival to CVU Performed By: #### 8 4511 ####[facility] [place] [address], [facility] Oxygen saturation in Blood 93.8 % Low 94.0-97.0 [facility] Comment on above: Order Comment: on ar rival to CVU Performed By: #### 8 4511 ####[facility] [place] [address], [facility] PCO2 36 mmHg Normal 35-45 [facility] Comment on above: Order Comment: on ar rival to CVU Performed By: #### 8 4511 ####[facility] [place] [address], [facility] PEEP 8.0 CMH20 Normal [facility] Comment on above: Order Comment: on ar rival to CVU Performed By: #### 8 4511 ####[facility] [place] [address], [place] PF RATIO 99 mmHg Normal [facility] Comment on above: Order Comment: on ar rival to CVU Performed By: #### 8 4511 ####[facility] [place] [address], [facility] pH (Bld) 7.37 [pH] Normal 7.35-7.45 [facility] Comment on above: Order Comment: on ar rival to CVU Performed By: #### 8 4511 ####[facility] [place] [address], [facility] PRESSURE SUPPORT 10 Normal [facility] Comment on above: Order Comment: on ar rival to CVU Performed By: #### 8 4511 ####[facility] [place] [address], [facility] Respiratory rate 16 /min Normal [facility] Comment on above: Order Comment: on ar rival to CVU Performed By: #### 8 4511 ####[facility] [place] [address], [facility] TIDAL VOLUME (VT) CC 700 Normal [facility] Comment on above: Order Comment: on ar rival to CVU Performed By: #### 8 4511 ####[facility] [place] [address], [facility] BASE EXCESS -4 mmol/L Low -2-3 [facility] Comment on above: Performed By: #### 8 4511 ####[facility] DELIVERY SYSTEMS VENT Normal [facility] Comment on above: Performed By: #### 8 4511 ####[facility] [place] [address], [facility] FIO2 70 % Normal [facility] Comment on above: Performed By: #### 8 4511 ####[facility] [place] [address], [facility] HCO3 (Bld) [Moles/Vol] 23 mmol/L Normal 21-28 [facility] Comment on above: Performed By: #### 8 4511 ####[facility] IONIZED CALCIUM 1.14 mmol/L Normal 1.13-1.32 The [facility] Comment on above: Performed By: #### 8 4511 ####[facility] [place] [address], [facility] MIN VOLUME 9.0 Normal [facility] Comment on above: Performed By: #### 8 4511 ####[facility] [place] [address], [facility] MODALITY SIMV Normal [facility] Comment on above: Performed By: #### 8 4511 ####[facility] [place] [address], [facility] Oxygen (Bld) [Partial pressure] 70 mm[Hg] Low 83-108 The [facility] Comment on above: Performed By: #### 8 4511 ####[facility] [place] [address], [facility] Oxygen saturation in Blood 92.5 % Low 94.0-97.0 [facility] Comment on above: Performed By: #### 8 4511 ####[facility] [place] [address], [facility] PCO2 48 mmHg High 35-45 [facility] Comment on above: Performed By: #### 8 4511 ####[facility] [place] [address], [facility] PEEP 8.0 CMH20 Normal [facility] Comment on above: Performed By: #### 8 4511 ####[facility] [place] [address], [facility] PF RATIO 100 mmHg Normal [facility] Comment on above: Performed By: #### 8 4511 ####[facility] [place] [address], [facility] pH (Bld) 7.28 [pH] Low 7.35-7.45 [facility] Comment on above: Performed By: #### 8 4511 ####[facility] [place] [address], [facility] PRESSURE SUPPORT 10 Normal [facility] Comment on above: Performed By: #### 8 4511 ####[facility] [place] [address], [facility] Respiratory rate 14 /min Normal [facility] Comment on above: Performed By: #### 8 4511 ####[facility] [place] [address], [facility] TIDAL VOLUME (VT) CC 550 Normal [facility] Comment on above: Performed By: #### 8 4511 ####[facility] [place] [address], [facility] BASIC METABOLIC PANELon 08- Calcium [Mass/Vol] 7.7 mg/dL Low 8.6-10.3 [facility] Comment on above: Order Comment: No: D o not add to previous draw Performed By: #### 1 0070, 73378, 12279 ####[facility] [place] [address], [facility] Chloride [Moles/Vol] 103 mmol/L Normal 98-107 [facility] Comment on above: Order Comment: No: D o not add to previous draw Performed By: #### 1 0070, 62184, 38788 ####[facility] [place] [address], [place] CO2 [Moles/Vol] 21 mmol/L Normal 21-[address] [facility] Comment on above: Order Comment: No: D o not add to previous draw Performed By: #### 1 0070, 44163, 03001 ####[facility] [place] [address], [facility] Creatinine [Mass/Vol] 1.15 mg/dL Normal 0.70-1.30 [facility] Comment on above: Order Comment: No: D o not add to previous draw Performed By: #### 1 0070, 44908, 50741 ####[facility] [place] [address], [facility] GFR/1.73 sq M.predicted among blacks MDRD (S/P/Bld) [Vol rate/Area] mL/min/{1.73_m2} Normal >60 [facility] Comment on above: Order Comment: No: D o not add to previous draw Result Comment: Calc ulation may not be valid for patients over 70 years Performed By: #### 1 0070, 37042, 66267 ####[facility] [place] [address], [place] GFR/1.73 sq M.predicted among non-blacks MDRD (S/P/Bld) [Vol rate/Area] mL/min/{1.73_m2} Normal >60 [facility] Comment on above: Order Comment: No: D o not add to previous draw Result Comment: Calc ulation may not be valid for patients over 70 years Performed By: #### 1 0070, 82011, 59909 ####[facility] [place] [address], [facility] Glucose [Mass/Vol] 224 mg/dL High 70-100 [facility] Comment on above: Order Comment: No: D o not add to previous draw Performed By: #### 1 0070, 80621, 73896 ####[facility] [place] [address], [facility] Potassium [Moles/Vol] 3.9 mmol/L Normal 3.5-5.1 [facility] Comment on above: Order Comment: No: D o not add to previous draw Performed By: #### 1 0070, 67228, 25927 ####[facility] [facility] [place] [address], [facility] Sodium [Moles/Vol] 134 mmol/L Low 136-145 [facility] Comment on above: Order Comment: No: D o not add to previous draw Performed By: #### 1 0070, 67449, 98998 ####[facility] [facility] [place] [address], [facility] Urea nitrogen [Mass/Vol] 22 mg/dL Normal 7-25 [facility] Comment on above: Order Comment: No: D o not add to previous draw Performed By: #### 1 0070, 86151, 02154 ####[facility] [facility] [place] [address], [facility] Calcium [Mass/Vol] 7.7 mg/dL Low 8.6-10.3 [facility] Comment on above: Performed By: #### 1 0070, 41444, 47949 ####[facility] [place] [address], [place] Chloride [Moles/Vol] 105 mmol/L Normal 98-107 [facility] Comment on above: Performed By: #### 1 0070, 13452, 81820 ####[facility] [place] [address], [place] CO2 [Moles/Vol] 24 mmol/L Normal 21-31 [facility] Comment on above: Performed By: #### 1 0, 49957, 71079 ####[facility] [place] [address], [place] Creatinine [Mass/Vol] 0.81 mg/dL Normal 0.70-1.30 [facility] Comment on above: Performed By: #### 1 0, 46604, 19388 ####[facility] [place] [address], [place] GFR/1.73 sq M.predicted among blacks MDRD (S/P/Bld) [Vol rate/Area] mL/min/{1.73_m2} Normal >60 [facility] Comment on above: Result Comment: Calc ulation may not be valid for patients over 70 years Performed By: #### 1 0, 79527, 96665 ####[facility] [place] [address], [place] GFR/1.73 sq M.predicted among non-blacks MDRD (S/P/Bld) [Vol rate/Area] mL/min/{1.73_m2} Normal >60 [facility] Comment on above: Result Comment: Calc ulation may not be valid for patients over 70 years Performed By: #### 1 0, 87754, 30975 ####[facility] [place] [address], [place] Glucose [Mass/Vol] 189 mg/dL High 70-100 [facility] Comment on above: Performed By: #### 1 0, 09575, 08856 ####[facility] [place] [address], [place] Potassium [Moles/Vol] 4.3 mmol/L Normal 3.5-5.1 [facility] Comment on above: Performed By: #### 1 0070, 43033, 27905 ####[facility] [place] [address], [place] Sodium [Moles/Vol] 133 mmol/L Low 136-145 [facility] Comment on above: Performed By: #### 1 0070, 74934, 05497 ####[facility] [place] [address], [place] Urea nitrogen [Mass/Vol] 20 mg/dL Normal 7-25 [facility] Comment on above: Performed By: #### 1 0070, 30497, 47105 ####[facility] [place] [address], [place] Calcium [Mass/Vol] 8.7 mg/dL Normal 8.6-10.3 [facility] Comment on above: Order Comment: No: D o not add to previous draw Performed By: #### 0 0071, 59418, 81902 ####[facility] [place] [address], [place] Chloride [Moles/Vol] 103 mmol/L Normal 98-107 [facility] Comment on above: Order Comment: No: D o not add to previous draw Performed By: #### 0 0071, 31001, 36190 ####[facility] [place] [address], [place] CO2 [Moles/Vol] 26 mmol/L Normal 21-[address] [facility] Comment on above: Order Comment: No: D o not add to previous draw Performed By: #### 0 0071, 42898, 40106 ####[facility] [place] [address], [place] Creatinine [Mass/Vol] 0.74 mg/dL Normal 0.70-1.30 [facility] Comment on above: Order Comment: No: D o not add to previous draw Performed By: #### 0 0071, 87448, 73073 ####[facility] [place] [address], [place] GFR/1.73 sq M.predicted among blacks MDRD (S/P/Bld) [Vol rate/Area] mL/min/{1.73_m2} Normal >60 [facility] Comment on above: Order Comment: No: D o not add to previous draw Result Comment: Calc ulation may not be valid for patients over 70 years Performed By: #### 0 0071, 87746, 81846 ####[facility] [place] [address], [place] GFR/1.73 sq M.predicted among non-blacks MDRD (S/P/Bld) [Vol rate/Area] mL/min/{1.73_m2} Normal >60 [facility] Comment on above: Order Comment: No: D o not add to previous draw Result Comment: Calc ulation may not be valid for patients over 70 years Performed By: #### 0 0071, 81372, 95890 ####[facility] [place] [address], [place] Glucose [Mass/Vol] 107 mg/dL High 70-100 [facility] Comment on above: Order Comment: No: D o not add to previous draw Performed By: #### 0 0071, 99452, 00559 ####[facility] [place] [address], [place] Potassium [Moles/Vol] 4.1 mmol/L Normal 3.5-5.1 [facility] Comment on above: Order Comment: No: D o not add to previous draw Performed By: #### 0 0071, 95084, 59931 ####[facility] [place] [address], [place] Sodium [Moles/Vol] 133 mmol/L Low 136-145 [facility] Comment on above: Order Comment: No: D o not add to previous draw Performed By: #### 0 0071, 72074, 69448 ####[facility] [facility].[address] Urea nitrogen [Mass/Vol] 19 mg/dL Normal 7-25 [facility] Comment on above: Order Comment: No: D o not add to previous draw Performed By: #### 0 0071, 25919, 01747 ####[facility] [facility].[address] CBC COMPLETE BLOOD COUNTon 0 - Erythrocyte distribution width (RBC) [Ratio] 14.4 % Normal 11.5-15.0 [facility] Comment on above: Order Comment: No: D o not add to previous draw Performed By: #### 5 0608 ####[address] Hematocrit (Bld) [Volume fraction] 33.4 % Low 39.0-50.0 [facility] Comment on above: Order Comment: No: D o not add to previous draw Performed By: #### 5 0608 ####[place] [address] [facility].[address] Hemoglobin (Bld) [Mass/Vol] 10.9 g/dL Low 13.0-17.0 [facility] Comment on above: Order Comment: No: D o not add to previous draw Performed By: #### 5 0608 ####[facility] [facility].[address] MCH (RBC) [Entitic mass] 30.4 pg Normal 27.0-33.0 [facility] Comment on above: Order Comment: No: D o not add to previous draw Performed By: #### 5 0608 ####[facility] [place] [address].[address] MCHC (RBC) [Mass/Vol] 32.6 g/dL Normal 32.0-35.0 [facility] Comment on above: Order Comment: No: D o not add to previous draw Performed By: #### 5 0608 ####[facility] [place] [address], [facility] MCV (RBC) [Entitic vol] 93.3 fL Normal 82.0-98.0 [facility] Comment on above: Order Comment: No: D o not add to previous draw Performed By: #### 5 0608 ####[facility] [place] [address], [facility] Nucleated RBC/100 WBC (Bld) [Ratio] 0 % Normal 0-0 [facility] Comment on above: Order Comment: No: D o not add to previous draw Performed By: #### 5 0608 ####[facility] [facility] [place] [address], [facility] PLAT CNT 228 10*3/uL Normal 150-400 The [facility] Comment on above: Order Comment: No: D o not add to previous draw Performed By: #### 5 0608 ####[facility] [facility] [place] [address], [facility] RBC (Bld) [#/Vol] 3.58 10*6/uL Low 4.20-5.70 [facility] Comment on above: Order Comment: No: D o not add to previous draw Performed By: #### 5 0608 ####[facility] [facility] [place] [address], [facility] WBC (Bld) [#/Vol] 18.53 10*3/uL High 4.00-10.60 [facility] Comment on above: Order Comment: No: D o not add to previous draw Performed By: #### 5 0608 ####[facility] [facility] [place] [address], [facility] Erythrocyte distribution width (RBC) [Ratio] 14.6 % Normal 11.5-15.0 [facility] Comment on above: Performed By: #### 5 0608 ####[facility] [facility].[address] Hematocrit (Bld) [Volume fraction] 35.5 % Low 39.0-50.0 [facility] Comment on above: Performed By: #### 5 0608 ####[place] [address] [facility].[address] Hemoglobin (Bld) [Mass/Vol] 11.5 g/dL Low 13.0-17.0 [facility] Comment on above: Performed By: #### 5 0608 ####[address] MCH (RBC) [Entitic mass] 30.5 pg Normal 27.0-33.0 [facility] Comment on above: Performed By: #### 5 0608 ####[place] [address] [facility].[address] MCHC (RBC) [Mass/Vol] 32.4 g/dL Normal 32.0-35.0 [facility] Comment on above: Performed By: #### 5 0608 ####[address] MCV (RBC) [Entitic vol] 94.2 fL Normal 82.0-98.0 [facility] Comment on above: Performed By: #### 5 0608 ####[address] Nucleated RBC/100 WBC (Bld) [Ratio] 0 % Normal 0-0 [facility] Comment on above: Performed By: #### 5 0608 ####[address] [place] [address], [facility] PLAT CNT 219 10*3/uL Normal 150-400 The [facility] Comment on above: Performed By: #### 5 0608 ####[facility] [place] [address], [facility] RBC (Bld) [#/Vol] 3.77 10*6/uL Low 4.20-5.70 [facility] Comment on above: Performed By: #### 5 0608 ####[facility] [facility] [place] [address], [facility] WBC (Bld) [#/Vol] 14.37 10*3/uL High 4.00-10.60 [facility] Comment on above: Performed By: #### 5 0608 ####[address] Erythrocyte distribution width (RBC) [Ratio] 14.7 % Normal 11.5-15.0 [facility] Comment on above: Order Comment: No: D o not add to previous draw Performed By: #### 5 0608 ####[place] [address] [facility].[address] Hematocrit (Bld) [Volume fraction] 40.7 % Normal 39.0-50.0 [facility] Comment on above: Order Comment: No: D o not add to previous draw Performed By: #### 5 0608 ####[place] [address] [facility].[address] Hemoglobin (Bld) [Mass/Vol] 13.5 g/dL Normal 13.0-17.0 [facility] Comment on above: Order Comment: No: D o not add to previous draw Performed By: #### 5 0608 ####[place] [address] [facility] [place] [address], [facility] MCH (RBC) [Entitic mass] 30.5 pg Normal 27.0-33.0 [facility] Comment on above: Order Comment: No: D o not add to previous draw Performed By: #### 5 0608 ####[facility] [facility].[address] MCHC (RBC) [Mass/Vol] 33.2 g/dL Normal 32.0-35.0 [facility] Comment on above: Order Comment: No: D o not add to previous draw Performed By: #### 5 0608 ####[facility] [facility].[address] MCV (RBC) [Entitic vol] 92.1 fL Normal 82.0-98.0 [facility] Comment on above: Order Comment: No: D o not add to previous draw Performed By: #### 5 0608 ####[place] [address] Nucleated RBC/100 WBC (Bld) [Ratio] 0 % Normal 0-0 [facility] Comment on above: Order Comment: No: D o not add to previous draw Performed By: #### 5 0608 ####[facility] [facility].[address] PLAT CNT 233 10*3/uL Normal 150-400 The [facility] Comment on above: Order Comment: No: D o not add to previous draw Performed By: #### 5 0608 ####[address] RBC (Bld) [#/Vol] 4.42 10*6/uL Normal 4.20-5.70 The [facility] Comment on above: Order Comment: No: D o not add to previous draw Performed By: #### 5 0608 ####[address] [place] [address], [facility] WBC (Bld) [#/Vol] 7.11 10*3/uL Normal 4.00-10.60 [facility] Comment on above: Order Comment: No: D o not add to previous draw Performed By: #### 5 0608 ####[facility] [place] [address], [facility] COOXIMETRYon 04-08-2021 COHB 1 % Normal [facility] Comment on above: Performed By: #### 7 0207 ####[facility] [place] [address], [facility] METHB 1 % Normal [facility] Comment on above: Performed By: #### 7 0207 ####[facility] [place] [address], [facility] Oxygen saturation in Blood 77.5 % High 65.0-75.0 [facility] Comment on above: Performed By: #### 7 0207 ####[facility] [place] [address], [facility] THB 10.7 g/dL Normal [facility] Comment on above: Performed By: #### 7 0207 ####[facility] [place] [address], [facility] FERRITINon 04-08-2021 Ferritin [Mass/Vol] 116 ng/mL Normal 24-336 [facility] Comment on above: Performed By: #### 1 0070, 34102, 44816 ####[facility] [place] [address], [facility] FIBRINOGENon 04-08-2021 FIBRINOGEN 362 mg/dL Normal 150-425 [facility] Comment on above: Performed By: #### 5 7307, 49873, 60268 ####[facility] [place] [address], [facility] LACTATE BLOODon 04-08-2021 Lactate [Moles/Vol] 3.7 mmol/L High .5-2.2 The [facility] Comment on above: Order Comment: No: D o not add to previous draw Result Comment: M-CR ITICAL RESULT(S) REVIEWED, CALLED TO AND READ BACK BY Kleber TRAN at 2203. Performed By: #### 1 0054 ####[facility] [place] [address], [facility] Lactate [Moles/Vol] 2.5 mmol/L High .5-2.2 The [facility] Comment on above: Order Comment: No: D o not add to previous draw Performed By: #### 1 0054 ####[facility] [place] [address], [place] Lactate [Moles/Vol] 1.0 mmol/L Normal .5-2.2 [facility] Comment on above: Performed By: #### 1 0054 ####[facility] [facility] [place] [address], [facility] MAGNESIUM BLOODon 04-08-2021 Magnesium [Mass/Vol] 2.3 mg/dL Normal 1.9-2.7 [facility] Comment on above: Order Comment: No: D o not add to previous draw Performed By: #### 1 0070, 33876, 40888 ####[facility] [facility] [place] [address], [facility] Magnesium [Mass/Vol] 1.9 mg/dL Normal 1.9-2.7 [facility] Comment on above: Performed By: #### 1 0070, 09521, 89708 ####[facility] [facility] [place] [address], [place] Magnesium [Mass/Vol] 2.2 mg/dL Normal 1.9-2.7 [facility] Comment on above: Order Comment: No: D o not add to previous draw Performed By: #### 0 0071, 07504, 74520 ####[facility] [place] [address], [place] PERFUSION BLOOD PANELon 03-24 BASE EXCESS -3.0 mmol/L Low -2.0-3.0 The [facility] Comment on above: Performed By: #### 3 0738 ####[facility] [place] [address], [facility] Glucose [Mass/Vol] 193 mg/dL High 70-105 [facility] Comment on above: Performed By: #### 3 0738 ####[facility] [facility] [place] [address], [facility] Hematocrit (Bld) [Volume fraction] 36 % Low 38-51 [facility] Comment on above: Performed By: #### 3 0738 ####[facility] [facility] [place] [address], [facility] Hemoglobin (Bld) [Mass/Vol] 12.2 g/dL Normal 12.0-17.0 [facility] Comment on above: Performed By: #### 3 0738 ####[facility] [facility] [place] [address], [facility] IONIZED CALCIUM 1.22 mmol/L Normal 1.12-1.32 [facility] Comment on above: Performed By: #### 3 0738 ####[facility] [facility] [place] [address], [facility] Oxygen (Bld) [Partial pressure] 131.0 mm[Hg] High 80.0-105.0 The [facility] Comment on above: Performed By: #### 3 0738 ####[facility] [facility] [place] [address], [facility] PCO2 51.6 mmHg High 35.0-45.0 [facility] Comment on above: Performed By: #### 3 0738 ####[facility] [place] [address], [facility] pH (Bld) 7.28 [pH] Low 7.35-7.45 [facility] Comment on above: Performed By: #### 3 0738 ####[facility] [place] [address], [facility] Potassium [Moles/Vol] 4.4 mmol/L Normal 3.5-4.9 [facility] Comment on above: Performed By: #### 3 0738 ####[facility] [place] [address], [facility] Sodium [Moles/Vol] 139 mmol/L Normal 138-146 [facility] Comment on above: Performed By: #### 3 0738 ####[place] [address] [place] [address], [facility] BASE EXCESS -2.0 mmol/L Normal -2.0-3.0 The [facility] Comment on above: Performed By: #### 3 0738 ####[place] [address] Glucose [Mass/Vol] 156 mg/dL High 70-105 [facility] Comment on above: Performed By: #### 3 0738 ####[place] [address] Hematocrit (Bld) [Volume fraction] 36 % Low 38-51 [facility] Comment on above: Performed By: #### 3 0738 ####[facility] [place] [address], [facility] Hemoglobin (Bld) [Mass/Vol] 12.2 g/dL Normal 12.0-17.0 [facility] Comment on above: Performed By: #### 3 0738 ####[place] [address] [place] [address], [facility] IONIZED CALCIUM 1.17 mmol/L Normal 1.12-1.32 The [facility] Comment on above: Performed By: #### 3 0738 ####[facility] [place] [address], [facility] Oxygen (Bld) [Partial pressure] 196.0 mm[Hg] High 80.0-105.0 The [facility] Comment on above: Performed By: #### 3 0738 ####[facility] [facility] [place] [address], [facility] PCO2 46.9 mmHg High 35.0-45.0 [facility] Comment on above: Performed By: #### 3 0738 ####[place] [address] [facility] [place] [address], [facility] pH (Bld) 7.33 [pH] Low 7.35-7.45 [facility] Comment on above: Performed By: #### 3 0738 ####[place] [address] [facility] [place] [address], [facility] Potassium [Moles/Vol] 4.5 mmol/L Normal 3.5-4.9 [facility] Comment on above: Performed By: #### 3 0738 ####[address] [place] [address], [facility] Sodium [Moles/Vol] 139 mmol/L Normal 138-146 [facility] Comment on above: Performed By: #### 3 0738 ####[place] [address] [facility] [place] [address], [facility] BASE EXCESS -1.0 mmol/L Normal -2.0-3.0 The [facility] Comment on above: Performed By: #### 3 0738 ####[place] [address] [facility] [place] [address], [facility] Glucose [Mass/Vol] 133 mg/dL High 70-105 [facility] Comment on above: Performed By: #### 3 0738 ####[address] [place] [address], [facility] Hematocrit (Bld) [Volume fraction] 37 % Low 38-51 [facility] Comment on above: Performed By: #### 3 0738 ####[facility] [place] [address], [facility] Hemoglobin (Bld) [Mass/Vol] 12.6 g/dL Normal 12.0-17.0 [facility] Comment on above: Performed By: #### 3 0738 ####[place] [address] [facility] [place] [address], [facility] IONIZED CALCIUM 1.19 mmol/L Normal 1.12-1.32 [facility] Comment on above: Performed By: #### 3 0738 ####[address] [place] [address], [facility] Oxygen (Bld) [Partial pressure] 184.0 mm[Hg] High 80.0-105.0 [facility] Comment on above: Performed By: #### 3 0738 ####[place] [address] [facility] [place] [address], [facility] PCO2 46.6 mmHg High 35.0-45.0 [facility] Comment on above: Performed By: #### 3 0738 ####[place] [address] [facility] [place] [address], [facility] pH (Bld) 7.34 [pH] Low 7.35-7.45 [facility] Comment on above: Performed By: #### 3 0738 ####[place] [address] [facility].[place] [id number], [facility] Potassium [Moles/Vol] 4.3 mmol/L Normal 3.5-4.9 [facility] Comment on above: Performed By: #### 3 0738 ####[place] [address] [facility] [id number], [facility] Sodium [Moles/Vol] 139 mmol/L Normal 138-146 [facility] Comment on above: Performed By: #### 3 0738 ####[facility] [place] [address], [facility] BASE EXCESS -1.0 mmol/L Normal -2.0-3.0 The [facility] Comment on above: Performed By: #### 3 0738 ####[facility] [place] [address], [facility] Glucose [Mass/Vol] 118 mg/dL High 70-105 [facility] Comment on above: Performed By: #### 3 0738 ####[facility] [place] [address], [facility] Hematocrit (Bld) [Volume fraction] 39 % Normal 38-51 [facility] Comment on above: Performed By: #### 3 0738 ####[facility] [place] [address], [facility] Hemoglobin (Bld) [Mass/Vol] 13.3 g/dL Normal 12.0-17.0 [facility] Comment on above: Performed By: #### 3 0738 ####[facility] [place] [address], [facility] IONIZED CALCIUM 1.17 mmol/L Normal 1.12-1.32 The [facility] Comment on above: Performed By: #### 3 0738 ####[facility] [place] [address], [facility] Oxygen (Bld) [Partial pressure] 96.0 mm[Hg] Normal 80.0-105.0 The [facility] Comment on above: Performed By: #### 3 0738 ####[facility] [place] [address], [place] PCO2 41.2 mmHg Normal 35.0-45.0 [facility] Comment on above: Performed By: #### 3 0738 ####[facility] [place] [address], [facility] pH (Bld) 7.38 [pH] Normal 7.35-7.45 [facility] Comment on above: Performed By: #### 3 0738 ####[facility] [address], [facility] Potassium [Moles/Vol] 4.3 mmol/L Normal 3.5-4.9 [facility] Comment on above: Performed By: #### 3 0738 ####[facility] [facility] [place] [address], [facility] Sodium [Moles/Vol] 139 mmol/L Normal 138-146 [facility] Comment on above: Performed By: #### 3 0738 ####[facility] [facility] [place] [address], [facility] PHOSPHORUS BLOODon Phosphate [Mass/Vol] 4.0 mg/dL Normal 2.5-5.0 The [facility] Comment on above: Order Comment: No: D o not add to previous draw Performed By: #### 1 0070, 40405, 04106 ####[facility] [facility] [place] [address], [facility] Phosphate [Mass/Vol] 3.8 mg/dL Normal 2.5-5.0 [facility] Comment on above: Order Comment: No: D o not add to previous draw Performed By: #### 0 0071, 49354, [id number] ####[facility] [facility] [place] [address], [facility] POC GLUCOSE LABon 04-08-2021 Glucose [Mass/Vol] 252 mg/dL High 70-100 [facility] Comment on above: Performed By: #### 8 5499 ####[facility] [place] [address], [place] Glucose [Mass/Vol] 240 mg/dL High 70-100 [facility] Comment on above: Performed By: #### 8 5499 ####[facility] [place] [address], [place] Glucose [Mass/Vol] 126 mg/dL High 70-100 [facility] Comment on above: Performed By: #### 8 5499 ####[facility] [place] [address], [place] Glucose [Mass/Vol] 178 mg/dL High 70-100 [facility] Comment on above: Performed By: #### 8 5499 ####[facility] [place] [address], [place] Glucose [Mass/Vol] 195 mg/dL High 70-100 [facility] Comment on above: Performed By: #### 8 5499 ####[facility] [place] [address], [place] Glucose [Mass/Vol] 113 mg/dL High 70-100 [facility] Comment on above: Performed By: #### 8 5499 ####[facility] [place] [address], [place] Glucose [Mass/Vol] 118 mg/dL High 70-100 [facility] Comment on above: Performed By: #### 8 5499 ####[facility] [place] [address], [place] PORTABLE CHEST 1 VIEWon 03-24 PORTABLE CHEST 1 VIEW Normal The [facility] Comment on above: Order Comment: Check Chest Tube Position, ON ARRIVAL TO CVU PROTHROMBIN TIMEon INR Coag (PPP) [Relative time] 1.20 {INR} High 0.91-1.16 [facility] Comment on above: Order Comment: No: D o not add to previous draw Result Comment: [facility] P RECOMMENDED INR FOR WARFARIN THERAPY CONDITION INRPROPHYLAXIS OF VENOUS THROMBOSIS 2-3(HIGH-RISK SURGERY)TREATMENT OF VENOUS THROMBOSIS 2-3TREATMENT OF PULMONARY EMBOLISM 2-3PREVENTION OF SYSTEMIC EMBOLISM: 2-3 ACUTE MYOCARDIAL INFARCTION TISSUE HEART VALVES VALVULAR HEART DISEASE ATRIAL FIBRILLATION RECURRENT SYSTEMIC EMBOLISMMECHANICAL HEART VALVE 2.5-3.5 FROM: ORAL ANTICOAGULANTS. MECHANISM OF ACTION, CLINICALEFFECTIVENESS, AND OPTIMAL THERAPEUTIC RANGE. [id number];108:231S-246S. Performed By: #### 5 6101, [id number] ####[facility] [facility] [place] [address], [facility] PT Coag (PPP) [Time] 15.2 s High 12.3-14.8 [facility] Comment on above: Order Comment: No: D o not add to previous draw Result Comment: ALL RESULTS MUST BE INTERPRETED WITH RESPECT TO BLOOD DRAWING ARTIFACTOR DILUTION ERROR OF ANTICOAGULANT AT THE TIME OF SAMPLING. Performed By: #### 5 6101, [id number] ####[facility] [facility] [place] [address], [facility] INR Coag (PPP) [Relative time] 1.23 {INR} High 0.91-1.16 [facility] Comment on above: Result Comment: [facility] P RECOMMENDED INR FOR WARFARIN THERAPY CONDITION INRPROPHYLAXIS OF VENOUS THROMBOSIS 2-3(HIGH-RISK SURGERY)TREATMENT OF VENOUS THROMBOSIS 2-3TREATMENT OF PULMONARY EMBOLISM 2-3PREVENTION OF SYSTEMIC EMBOLISM: 2-3 ACUTE MYOCARDIAL INFARCTION TISSUE HEART VALVES VALVULAR HEART DISEASE ATRIAL FIBRILLATION RECURRENT SYSTEMIC EMBOLISMMECHANICAL HEART VALVE 2.5-3.5 FROM: ORAL ANTICOAGULANTS. MECHANISM OF ACTION, CLINICALEFFECTIVENESS, AND OPTIMAL THERAPEUTIC RANGE. [id number];108:231S-246S. Performed By: #### 5 7307, 85326, 66032 ####[facility] PT Coag (PPP) [Time] 15.5 s High 12.3-14.8 [facility] Comment on above: Result Comment: ALL RESULTS MUST BE INTERPRETED WITH RESPECT TO BLOOD DRAWING ARTIFACTOR DILUTION ERROR OF ANTICOAGULANT AT THE TIME OF SAMPLING. Performed By: #### 5 7307, 58549, 57141 ####[facility] [facility].[address] INR Coag (PPP) [Relative time] 1.05 {INR} Normal 0.91-1.16 [facility] Comment on above: Order Comment: [...] OF ACTION, CLINICALEFFECTIVENESS, AND OPTIMAL THERAPEUTIC RANGE. [id number];108:231S-246S. Performed By: #### 5 6101 ####[facility] PT Coag (PPP) [Time] 13.7 s Normal 12.3-14.8 [facility] Comment on above: Order Comment: No: D o not add to previous draw Result Comment: ALL RESULTS MUST BE INTERPRETED WITH RESPECT TO BLOOD DRAWING ARTIFACTOR DILUTION ERROR OF ANTICOAGULANT AT THE TIME OF SAMPLING. Performed By: #### 5 6101 ####[facility] [facility].[address] TROPONIN-Ion 04-08-2021 Troponin I.cardiac [Mass/Vol] 0.34 ng/mL Critically high 0.00-0.04 [facility] Comment on above: Order Comment: No: D o not add to previous draw Result Comment: M-TR OPONIN INITIAL CRITICAL HIGH; RESPUN AND RETESTEDM-CRITICAL RESULT(S) REVIEWED, CALLED TO AND READ BACK BY Kleber TRAN at 2228.REFERENCE RANGES: 0.00 - 0.04 ng/ml NORMAL 0.05 - 0.50 ng/ml INDETERMINATE > 0.50 ng/ml CONSISTENT WITH AN M.I. Performed By: #### 3 5200 ####[facility] [facility].[address] POC GLUCOSE LABon 04-07-2021 Glucose [Mass/Vol] 121 mg/dL High 70-100 [facility] Comment on above: Performed By: #### 8 5499 ####[facility] [facility] [place] [address], [facility] Glucose [Mass/Vol] 165 mg/dL High 70-100 [facility] Comment on above: Performed By: #### 8 5499 ####[facility] [facility] [place] [address], [facility] Glucose [Mass/Vol] 109 mg/dL High 70-100 [facility] Comment on above: Performed By: #### 8 5499 ####[facility] [facility] [place] [address], [facility] POC SARS COV2 ANTIGEN NEGATI VEon 04-07-2021 POC SARS COV2 ANTIGEN NEG Negative Normal NEGATIVE The [facility] Comment on above: Result Comment: Nega tive [...] of clinicalsigns and symptoms consistent with COVID-19.The varinodeW COVID-19 Ag Card is a lateral flow immunoassay intended forthe qualitative detection of nucleocapsid protein antigen [id number] in direct nasal swabs from individuals within [...] Certificate ofAccreditation. Performed By: #### 3 1977 ####[facility] [facility] [place] [address], [facility] Pulmonary Functionon 021 Pulmonary Function Normal The [facility] Center RBC'S 4 UNITSon 04-07-2021 CROSSMATCH INTERP 1 COMP Normal The [facility] Comment on above: Performed By: #### 8 6004 ####[facility] [facility] [place] [address], [facility] CROSSMATCH INTERP 2 COMP Normal The [facility] Comment on above: Performed By: #### 8 6004 ####[facility] [facility] [place] [address], [facility] CROSSMATCH INTERP 3 COMP Normal The [facility] Comment on above: Performed By: #### 8 6004 ####[facility] [facility] [place] [address], [facility] CROSSMATCH INTERP 4 COMP Normal The [facility] Comment on above: Performed By: #### 8 6004 ####[facility] [facility] [place] [address], [facility] PRODUCT CODE 1 E0336 Normal The [facility] Comment on above: Performed By: #### 8 6004 ####[facility] [facility] [place] [address], [facility] PRODUCT CODE 2 E0336 Normal The [facility] Comment on above: Performed By: #### 8 6004 ####[facility] [facility] [place] [address], [facility] PRODUCT CODE 3 E0336 Normal The [facility] Comment on above: Performed By: #### 8 6004 ####[facility] [facility] [place] [address], [place] PRODUCT CODE 4 E0336 Normal The [facility] Comment on above: Performed By: #### 8 6004 ####[facility] [facility], [place] [address] [place] [address] PRODUCT STATUS 1 RE Normal The [facility] Comment on above: Result Comment: Resu lt changed by IF on 04/08/2021 12:37. The previous value was XM.Result changed by IF on 04/08/2021 16:53. The previous value was IS.Result changed by IF on 04/11/2021 11:14. The previous value was XM. Performed By: #### 8 6004 ####[facility] [facility], [place] [address] [place] [address] PRODUCT STATUS 2 RE Normal The [facility] Comment on above: Result Comment: Resu lt changed by IF on 04/08/2021 12:37. The previous value was XM.Result changed by IF on 04/08/2021 16:53. The previous value was IS.Result changed by IF on 04/11/2021 11:14. The previous value was XM. Performed By: #### 8 6004 ####[facility] [facility] [place] [address], [facility] PRODUCT STATUS 3 RE Normal The [facility] Comment on above: Result Comment: Resu lt changed by IF on 04/08/2021 12:37. The previous value was XM.Result changed by IF on 04/08/2021 16:53. The previous value was IS.Result changed by IF on 04/11/2021 11:14. The previous value was XM. Performed By: #### 8 6004 ####[facility] [facility] [place] [address], [facility] PRODUCT STATUS 4 RE Normal The [facility] Comment on above: Result Comment: Resu lt changed by IF on 04/08/2021 12:37. The previous value was XM.Result changed by IF on 04/08/2021 16:53. The previous value was IS.Result changed by IF on 04/11/2021 11:14. The previous value was XM. Performed By: #### 8 6004 ####[facility] [facility] [place] [address], [facility] UNIT ABO 1 O Normal The [facility] Comment on above: Performed By: #### 8 6004 ####[facility] [place] [address], [facility] UNIT ABO 2 O Normal [facility] Comment on above: Performed By: #### 8 6004 ####[facility] [place] [address], [facility] UNIT ABO 3 O Normal [facility] Comment on above: Performed By: #### 8 6004 ####[facility] [place] [address], [facility] UNIT ABO 4 O Normal [facility] Comment on above: Performed By: #### 8 6004 ####[facility] [place] [address], [facility] UNIT ID 1 [id number] Normal The [facility] Comment on above: Performed By: #### 8 6004 ####[facility] [place] [address], [facility] UNIT ID 2 [id number] Normal The [facility] Comment on above: Performed By: #### 8 6004 ####[facility] [place] [address], [facility] UNIT ID 3 [id number] Normal The [facility] Comment on above: Performed By: #### 8 6004 ####[facility] [place] [address], [facility] UNIT ID 4 [id number] Normal [address] [facility] Comment on above: Performed By: #### 8 6004 ####[facility] [place] [address], [facility] UNIT RH 1 Positive Normal [facility] Comment on above: Performed By: #### 8 6004 ####[facility] [place] [address], [facility] UNIT RH 2 Positive Normal [facility] Comment on above: Performed By: #### 8 6004 ####[facility] [place] [address], [place] UNIT RH 3 Positive Normal [facility] Comment on above: Performed By: #### 8 6004 ####[facility] [place] [address], [facility] UNIT RH 4 Positive Normal [facility] Comment on above: Performed By: #### 8 6004 ####[facility] [place] [address], [facility] TYPE AND SCREENon 04-07-2021 ABO INTERPRETATION O Normal [facility] Comment on above: Performed By: #### 6 2586 ####[facility] [place] [address], [facility] RH INTERPRETATION Positive Normal [facility] Comment on above: Performed By: #### 6 2586 ####[facility] [place] [address], [facility] *MRSA/MSSA DNA NASALon 04-06 *MRSA/MSSA DNA NASAL Clinical Report: (D) Specimen: NASAL SWAB Collected: 04/06/2021 12:43 Status: Final Last Updated: 04/06/2021 16:01 MSSA DNA (Final) Negative MRSA DNA (Final) Negative Normal [facility] Comment on above: Performed By: #### 3 1595 ####[facility] [place] [address], [facility] BASIC METABOLIC PANELon 08- Calcium [Mass/Vol] 8.9 mg/dL Normal 8.6-10.3 [facility] Comment on above: Order Comment: No: D o not add to previous draw Performed By: #### 1 0, 98123 ####[facility] [place] [address], [facility] Chloride [Moles/Vol] 103 mmol/L Normal 98-107 [facility] Comment on above: Order Comment: No: D o not add to previous draw Performed By: #### 1 0, 11644 ####[facility] [place] [address], [place] CO2 [Moles/Vol] 26 mmol/L Normal 21-[address] [facility] Comment on above: Order Comment: No: D o not add to previous draw Performed By: #### 1 0, 84884 ####[facility] [place] [address], [facility] Creatinine [Mass/Vol] 0.78 mg/dL Normal 0.70-1.30 [facility] Comment on above: Order Comment: No: D o not add to previous draw Performed By: #### 1 0, 26356 ####[facility] [place] [address], [place] GFR/1.73 sq M.predicted among blacks MDRD (S/P/Bld) [Vol rate/Area] mL/min/{1.73_m2} Normal >60 [facility] Comment on above: Order Comment: No: D o not add to previous draw Result Comment: Calc ulation may not be valid for patients over 70 years Performed By: #### 1 0, 47478 ####[facility] [place] [address], [place] GFR/1.73 sq M.predicted among non-blacks MDRD (S/P/Bld) [Vol rate/Area] mL/min/{1.73_m2} Normal >60 [facility] Comment on above: Order Comment: No: D o not add to previous draw Result Comment: Calc ulation may not be valid for patients over 70 years Performed By: #### 1 69, 64564 ####[facility] [place] [address], [facility] Glucose [Mass/Vol] 101 mg/dL High 70-100 [facility] Comment on above: Order Comment: No: D o not add to previous draw Performed By: #### 1 69, 59966 ####[facility] [place] [address], [facility] Potassium [Moles/Vol] 4.1 mmol/L Normal 3.5-5.1 [facility] Comment on above: Order Comment: No: D o not add to previous draw Performed By: #### 1 69, 92881 ####[facility] [place] [address], [facility] Sodium [Moles/Vol] 134 mmol/L Low 136-145 [facility] Comment on above: Order Comment: No: D o not add to previous draw Performed By: #### 1 69, 34910 ####[facility] [facility].[address] Urea nitrogen [Mass/Vol] 20 mg/dL Normal 7-25 [facility] Comment on above: Order Comment: No: D o not add to previous draw Performed By: #### 1 69, 27747 ####[facility] [facility].[address] CBC COMPLETE BLOOD COUNTon 0 04-06-2021 Erythrocyte distribution width (RBC) [Ratio] 15.3 % High 11.5-15.0 [facility] Comment on above: Order Comment: No: D o not add to previous draw Performed By: #### 5 0608 ####[facility] [place] [address], [facility] Hematocrit (Bld) [Volume fraction] 43.0 % Normal 39.0-50.0 [facility] Comment on above: Order Comment: No: D o not add to previous draw Performed By: #### 5 0608 ####[facility] Hemoglobin (Bld) [Mass/Vol] 14.3 g/dL Normal 13.0-17.0 [facility] Comment on above: Order Comment: No: D o not add to previous draw Performed By: #### 5 0608 ####[facility] [place] [address] MCH (RBC) [Entitic mass] 30.6 pg Normal 27.0-33.0 [facility] Comment on above: Order Comment: No: D o not add to previous draw Performed By: #### 5 0608 ####[address] MCHC (RBC) [Mass/Vol] 33.3 g/dL Normal 32.0-35.0 [facility] Comment on above: Order Comment: No: D o not add to previous draw Performed By: #### 5 0608 ####[address] MCV (RBC) [Entitic vol] 92.1 fL Normal 82.0-98.0 [facility] Comment on above: Order Comment: No: D o not add to previous draw Performed By: #### 5 0608 ####[address] Nucleated RBC/100 WBC (Bld) [Ratio] 0 % Normal 0-0 [facility] Comment on above: Order Comment: No: D o not add to previous draw Performed By: #### 5 0608 ####[address] PLAT CNT 238 10*3/uL Normal 150-400 The [facility] Comment on above: Order Comment: No: D o not add to previous draw Performed By: #### 5 0608 ####[facility] [facility] [address], [facility] RBC (Bld) [#/Vol] 4.67 10*6/uL Normal 4.20-5.70 The [facility] Comment on above: Order Comment: No: D o not add to previous draw Performed By: #### 5 0608 ####[facility] [facility] [place] [address], [facility] WBC (Bld) [#/Vol] 6.86 10*3/uL Normal 4.00-10.60 [facility] Comment on above: Order Comment: No: D o not add to previous draw Performed By: #### 5 0608 ####[facility] [facility] [place] [address], [facility] MAGNESIUM BLOODon 04-06-2021 Magnesium [Mass/Vol] 2.0 mg/dL Normal 1.9-2.7 [facility] Comment on above: Order Comment: No: D o not add to previous draw Performed By: #### 1 0070, 67891 ####[facility] [facility] [place] [address], [facility] POC GLUCOSE LABon 04-06-2021 Glucose [Mass/Vol] 118 mg/dL High 70-100 [facility] Comment on above: Performed By: #### 8 5499 ####[facility] [facility] [place] [address], [facility] Glucose [Mass/Vol] 108 mg/dL High 70-100 [facility] Comment on above: Performed By: #### 8 5499 ####[facility] [facility] [place] [address], [facility] Glucose [Mass/Vol] 114 mg/dL High 70-100 [facility] Comment on above: Performed By: #### 8 5499 ####[facility] [facility] [place] [address], [facility] Glucose [Mass/Vol] 126 mg/dL High 70-100 [facility] Comment on above: Performed By: #### 8 5499 ####[facility] [facility] [place] [address], [place] URINALYSIS REFLEXon 04-06-20 21 Appearance (U) CLEAR Normal CLEAR The [facility] Comment on above: Order Comment: No: D o not add to previous drawCriteria for reflexing a culture was not met. Please call the lab [id number] within 24 hours of collection time if culture is needed Performed By: #### 3 0965 ####[facility] [facility] [place] [address], [facility] Bilirubin Ql (U) Negative Normal NEGATIVE The [facility] Comment on above: Order Comment: No: D o not add to previous drawCriteria for reflexing a culture was not met. Please call the lab [id number] within 24 hours of collection time if culture is needed Performed By: #### 3 0965 ####[facility] [facility] [place] [address], [facility] Color (U) YELLOW Normal YELLOW [facility] Comment on above: Order Comment: No: D o not add to previous drawCriteria for reflexing a culture was not met. Please call the lab [phone] within 24 hours of collection time if culture is needed Performed By: #### 3 0965 ####[facility] [facility] [place] [address], [place] Glucose Ql (U) Negative Normal NEGATIVE The [facility] Comment on above: Order Comment: No: D o not add to previous drawCriteria for reflexing a culture was not met. Please call the lab [phone] within 24 hours of collection time if culture is needed Performed By: #### 3 0965 ####[facility] [facility].[address] Hemoglobin Ql (U) Negative Normal NEGATIVE The [facility] Comment on above: Order Comment: No: D o not add to previous drawCriteria for reflexing a culture was not met. Please call the lab [id number] within 24 hours of collection time if culture is needed Performed By: #### 3 0965 ####[facility] [place] [address], [facility] KETONE Negative Normal NEGATIVE [facility] Comment on above: Order Comment: No: D o not add to previous drawCriteria for reflexing a culture was not met. Please call the lab [id number] within 24 hours of collection time if culture is needed Performed By: #### 3 0965 ####[facility] [place] [address], [facility] LEUK JESS Negative Normal NEGATIVE [facility] Comment on above: Order Comment: No: D o not add to previous drawCriteria for reflexing a culture was not met. Please call the lab [id number] within 24 hours of collection time if culture is needed Performed By: #### 3 0965 ####[facility] MICRO NOT DONE Normal The [facility] Comment on above: Order Comment: No: D o not add to previous drawCriteria for reflexing a culture was not met. Please call the lab [phone] within 24 hours of collection time if culture is needed Result Comment: Micr oscopics not performed on urines withnegative chemical reactions unless requested in original order Performed By: #### 3 0965 ####[facility] [place] [address], [facility] Nitrite Ql (U) Negative Normal NEGATIVE The [facility] Comment on above: Order Comment: No: D o not add to previous drawCriteria for reflexing a culture was not met. Please call the lab [id number] within 24 hours of collection time if culture is needed Performed By: #### 3 0965 ####[facility] pH (U) 6.0 [pH] Normal 5.0-8.0 [facility] Comment on above: Order Comment: No: D o not add to previous drawCriteria for reflexing a culture was not met. Please call the lab [id number] within 24 hours of collection time if culture is needed Performed By: #### 3 [id number] ####[facility] Protein Ql (U) Negative Normal NEGATIVE The [facility] Comment on above: Order Comment: No: D o not add to previous drawCriteria for reflexing a culture was not met. Please call the lab [phone] within 24 hours of collection time if culture is needed Performed By: #### 3 [id number] ####[facility] SPEC GRAV 1.019 Normal 1.015-1.020 The [facility] Comment on above: Order Comment: No: D o not add to previous drawCriteria for reflexing a culture was not met. Please call the lab [email or web address] within 24 hours of collection time if culture is needed Performed By: #### 3 [id number] ####[facility] Encounters Encounter Date Encounter Type Care Provider Facility Start: 03-14-2024 End: 03-14-2024 ambulatory AIDEN AICHHOLZ Not Available Start: 03-09-2024 End: 03-09-2024 ambulatory [facility] Start: 12-17-2023 End: 12-17-2023 ambulatory [facility] Start: 12-14-2023 End: 12-14-2023 ambulatory AIDEN AICHHOLZ Not Available Start: 09-09-2023 End: 09-09-2023 ambulatory AIDEN AICHHOLZ Not Available Start: 06-05-2023 End: 06-05-2023 ambulatory CATINA MOUKARBEL [facility] Start: 05-18-2023 End: 05-18-2023 ambulatory Mal Barnes Facility:[facility] Start: 09-03-2022 End: 09-03-2022 ambulatory Moshe Garcia Other [facility] Other Start: 09-03-2022 Office outpatient ne w 45 minutes Moshe Garcia [facility] Start: 08-18-2022 End: 08-20-2022 Evaluation and [...] Evaluation and management of inpatient MAL BARNES Facility:[facility] Procedures Date Procedure Procedure Detail Performing Clinician Start: 05-24-2021 Antibody screen MAL BARNES Comment on above: Performed By: #### 6 [id number] ####[facility] [place] [address], [facility] Start: 05-23-2021 EXCISION OF STERNUM, OPEN APPROACH AKANKSHA UP Start: 05-23-2021 TRANSFER LEFT THORAX MUSCLE WITH SKIN, SUBCU, OPEN APPROACH AKANKSHA UP Start: 05-23-2021 TRANSFER RIGHT THORA X MUSCLE WITH SKIN, SUBCU, OPEN APPROACH AKANKSHA UP Start: 05-22-2021 TRANSFUSE NONAUT RED BLOOD CELLS IN PERIPH VEIN, PERC GUDELIA MASROOR Start: 05-20-2021 CHANGE PRESSURE DRES SING ON CHEST WALL AKANKSHA DEVINECHARIS Start: 05-20-2021 Antibody screen MAL BARNES Comment on above: Performed By: #### 6 [id number] ####[facility] ABISAI PERKINS.[address] Start: 05-16-2021 EXCISION OF CHEST SK IN, EXTERNAL APPROACH AKANKSHA JEOVANNY Start: 05-16-2021 RESPIRATORY VENTILAT ION, LESS THAN 24 CONSECUTIVE HOURS GUDELIA MOLLY Start: 05-15-2021 Antibody screen MAL BARNES Comment on above: Performed By: #### 6 [id number] ####[facility] ABISAIKATHY PERKINS.[address] Start: 04-07-2021 Antibody screen MAL BARNES Comment on above: Performed By: #### 6 [id number] ####[facility]3000 GRIDLEY MADDIE.[address] Payers Date Payer Category Payer Unknown [id number] 1959 Private Health Insurance [id number] 1960 Self-pay 1945 Unknown [id number] 2.16.8 [id number] 1945 Unknown [id number] 2.16.84 [id number] 1945 Unknown [id number] 2.16.84 0.1.365229.3.579.2.593 1945 Unknown [id number] 2.16.84 0.1.405994.3.579.2.593 1944 Unknown [id number] 2.16.84 0.1.662300.3.579.2.593 1944 Unknown [id number] 2.16.84 0.1.433652.3.579.2.593 1944 Unknown [id number] 2.16.84 0.1.058884.3.579.2.593 1944 Unknown [id number] 2.16.84 0.1.748621.3.579.2.593 1945 Unknown [id number] 2.16.84 0.1.044564.3.579.2.593 1944 Unknown [id number] 2.16.84 0.1.663819.3.579.2.593 1945 Unknown [id number] 2.16.84 0.1.783029.3.579.2.1259 1945 Unknown [id number] 2.16.84 0.1.475965.3.579.2.1259 1945 Unknown [id number] 2.16.84 0.1.761699.3.579.2.1259 Unknown [id number] 2.16.8 40.1.010211.3.579.2.531 Social History Date Type Detail Facility Sex Assigned At [facility] Other Progress note 03-09-2024 Note Date & Type Note Facility 03-09-2024 Note Cardiovascular Medic [facility] SUBJECTIVE Chief Complaint Patient presents with Follow-up 3 month follow up Arianne Mcqueen is a 78 y.o. male here for follow-up. HPI Patient here for 6 mo follow up CAD, hypertension, and chronic diastolic heart failure. Had SILVIA's last month. Denies chest pain, palpitations, and lightheadedness/syncope. Gets very winded with exertion. He does see Dr. Mayers for this. Seeing wound care for his LE. In the last few days he has noticed worsened shortness of breath with exertion. He has gained about 8# in the last 4-5 months. He has leg swelling, this is unchanged. Denies CP, orthopnea, PND, dizziness/LH, palpitations. 03/09/2024 His GROVES is unchanged. He still feels SOB with any exertion. His LE edema has been doing okay, unchanged. Denies CP, orthopnea, PND, dizziness/LH, palpitations. Patient Active Problem List Diagnosis Multiple vessel coronary artery disease Cough Edema Hypertensive disorder History of coronary artery bypass surgery Nonsustained ventricular tachycardia (CMS/HCC) Syncope and collapse Wound of sternal region Chronic diastolic congestive heart failure ([facility]) COVID-19 Hyperglycemia Metabolic syndrome MGUS (monoclonal gammopathy of unknown significance) Pericardial effusion Pneumonia, bacterial Solitary pulmonary nodule Arthritis of right hip Bilateral lower extremity edema Constipation COPD (chronic obstructive pulmonary disease) ([facility]) Encounter for subsequent annual wellness visit (AWV) in Medicare patient Hearing decreased Hypercholesterolemia Hyperpigmentation Iron deficiency Lymphedema Lymphorrhea Myocardial infarction ([facility]) Nicotine dependence Osteoarthritis of both knees Papillomatosis Sleep apnea Morbid obesity ([facility]) Venous stasis ulcer of right lower extremity ([facility]) Wound cellulitis Diabetes mellitus, type II ([facility]) long term (current) use of inhaled steroids Ulcer of lower extremity ([facility]) Past Medical History: Diagnosis Date CHF (congestive heart failure) ([facility]) Coronary artery disease Hyperlipidemia Hypertension Pericardial effusion Family History Problem Relation Name Age of Onset Coronary artery disease Mother Social History Tobacco Use Smoking status: Former Types: Cigarettes Smokeless tobacco: Never Substance Use Topics Drug use: Never No Known Allergies Review of Systems Constitutional: Negative for chills, fever, malaise/fatigue and weight gain. Cardiovascular: Positive for dyspnea on exertion. Negative for chest pain, irregular heartbeat, leg swelling, near-syncope, orthopnea, palpitations, paroxysmal nocturnal dyspnea and syncope. OBJECTIVE Visit Vitals BP 110/78 (BP Location: Left arm, Patient Position: Sitting, BP Cuff Size: Adult) Pulse 65 Resp 14 Ht 1.791 m (5' 10.5 ) Wt (!) 145 kg (319 lb 9.6 oz) SpO2 93% BMI 45.21 kg/m??? Smoking Status Former BSA 2.69 m??? Medications: Current Outpatient Medications: aspirin 81 mg chewable tablet, Chew 81 mg in the morning., Disp: , Rfl: atorvastatin (Lipitor) 40 mg tablet, Take 1 tablet (40 mg) by mouth at bedtime., Disp: 90 tablet, Rfl: 3 carvedilol (Coreg) 12.5 mg tablet, Take 1 tablet (12.5 mg) by mouth in the morning and at bedtime., Disp: 180 tablet, Rfl: 3 celecoxib (CeleBREX) 200 mg capsule, Take 200 mg by mouth in the morning., Disp: , Rfl: empagliflozin (Jardiance) 10 mg, Take 1 tablet (10 mg) by mouth in the morning., Disp: 90 tablet, Rfl: 3 ferrous sulfate 325 (65 Fe) MG tablet, Take 1 tablet by mouth in the morning., Disp: , Rfl: isosorbide mononitrate ER (Imdur) 30 mg 24 hr tablet, Take 1 tablet (30 mg) by mouth in the morning. Do not crush or chew., Disp: 90 tablet, Rfl: 3 Ozempic 0.25 mg or 0.5 mg (2 mg/3 mL) pen injector, , Disp: , Rfl: spironolactone (Aldactone) 25 mg tablet, Take 0.5 tablets (12.5 mg) by mouth in the morning., Disp: 90 tablet, Rfl: 3 Trelegy Ellipta 100-62.5-25 mcg blister with device, , Disp: , Rfl: Physical Exam Constitutional: Appearance: Normal appearance. He is obese. HENT: Head: Normocephalic and atraumatic. Right Ear: External ear normal. Left Ear: External ear normal. Eyes: Extraocular Movements: Extraocular movements intact. Pupils: Pupils are equal, round, and reactive to light. Neck: Vascular: No carotid bruit. Cardiovascular: Rate and Rhythm: Normal rate and regular rhythm. Pulses: Normal pulses. Heart sounds: Normal heart sounds. Pulmonary: Effort: Pulmonary effort is normal. Breath sounds: Normal breath sounds. Abdominal: General: Bowel sounds are normal. Palpations: Abdomen is soft. Musculoskeletal: General: Normal range of motion. Cervical back: Neck supple. Right lower le+ Pitting Edema present. Left lower le+ Pitting Edema present. Comments: +1 BLE edema Skin: General: Skin is warm and dry. Comments: Venous stasis skin (more content not included)... [facility] Progress note 12-17-2023 Note Date & Type Note Facility 12-17-2023 Note Cardiovascular Medic [facility] SUBJECTIVE Chief Complaint Patient presents with Coronary Artery Disease Hypertension Arianne Mcqueen is a 78 y.o. male here for follow-up. HPI Patient here for 6 mo follow up CAD, hypertension, and chronic diastolic heart failure. Had SILVIA's last month. Denies chest pain, palpitations, and lightheadedness/syncope. Gets very winded with exertion. He does see Dr. Mayers for this. Seeing wound care for his LE. In the last few days he has noticed worsened shortness of breath with exertion. He has gained about 8# in the last 4-5 months. He has leg swelling, this is unchanged. Denies CP, orthopnea, PND, dizziness/LH, palpitations. Patient Active Problem List Diagnosis Multiple vessel coronary artery disease Cough Edema Hypertensive disorder History of coronary artery bypass surgery Nonsustained ventricular tachycardia (CMS/HCC) Syncope and collapse Wound of sternal region Chronic diastolic congestive heart failure ([facility]) COVID-19 Hyperglycemia Metabolic syndrome MGUS (monoclonal gammopathy of unknown significance) Pericardial effusion Pneumonia, bacterial Solitary pulmonary nodule Arthritis of right hip Bilateral lower extremity edema Constipation COPD (chronic obstructive pulmonary disease) ([facility]) Encounter for subsequent annual wellness visit (AWV) in Medicare patient Hearing decreased Hypercholesterolemia Hyperpigmentation Iron deficiency Lymphedema Lymphorrhea Myocardial infarction (CMS/HCC) Nicotine dependence Osteoarthritis of both knees Papillomatosis Sleep apnea Morbid obesity ([facility]/HCC) Venous stasis ulcer of right lower extremity ([facility]) Wound cellulitis Past Medical History: Diagnosis Date CHF (congestive heart failure) ([facility]/HCC) Coronary artery disease Hyperlipidemia Hypertension Pericardial effusion Family History Problem Relation Name Age of Onset Coronary artery disease Mother Social History Tobacco Use Smoking status: Former Types: Cigarettes Smokeless tobacco: Never Substance Use Topics Drug use: Never No Known Allergies Review of Systems Constitutional: Negative for chills, fever, malaise/fatigue and weight gain. Cardiovascular: Positive for dyspnea on exertion. Negative for chest pain, irregular heartbeat, leg swelling, near-syncope, orthopnea, palpitations, paroxysmal nocturnal dyspnea and syncope. OBJECTIVE Visit Vitals BP 94/60 (BP Location: Left arm, Patient Position: Sitting) Pulse 53 Ht 1.791 m (5' 10.5 ) Wt (!) 147 kg (324 lb) SpO2 95% BMI 45.83 kg/m??? Smoking Status Former BSA 2.7 m??? Medications: Current Outpatient Medications: albuterol 90 mcg/actuation inhaler, INHALE 2 PUFFS BY MOUTH EVERY 6 HOURS NEEDED SHORTNESS OF BREATH, Disp: , Rfl: aspirin 81 mg chewable tablet, Chew 81 mg in the morning., Disp: , Rfl: atorvastatin (Lipitor) 40 mg tablet, Take 1 tablet (40 mg) by mouth at bedtime., Disp: 90 tablet, Rfl: 3 carvedilol (Coreg) 12.5 mg tablet, Take 1 tablet (12.5 mg) by mouth in the morning and at bedtime., Disp: 180 tablet, Rfl: 3 celecoxib (CeleBREX) 200 mg capsule, Take 200 mg by mouth in the morning., Disp: , Rfl: empagliflozin (Jardiance) 10 mg, Take 1 tablet (10 mg) by mouth in the morning., Disp: 90 tablet, Rfl: 3 ferrous sulfate 325 (65 Fe) MG tablet, Take 1 tablet by mouth in the morning., Disp: , Rfl: glipiZIDE (Glucotrol) 5 mg tablet, TAKE 1/2 (ONE-HALF) OF A TABLET BY MOUTH EVERY MORNING, Disp: , Rfl: isosorbide mononitrate ER (Imdur) 30 mg 24 hr tablet, Take 1 tablet (30 mg) by mouth in the morning. Do not crush or chew., Disp: 90 tablet, Rfl: 3 tiotropium-olodateroL (Stiolto Respimat) 2.5-2.5 mcg/actuation mist inhaler, Inhale 2 Inhalation. in the morning and at bedtime., Disp: , Rfl: traZODone (Desyrel) 50 mg tablet, TAKE 1 TO 2 TABLETS BY MOUTH EVERY DAY AT BEDTIME, Disp: , Rfl: predniSONE (Deltasone) 20 mg tablet, TAKE 2 TABLETS BY MOUTH ONCE DAILY WITH FOOD, Disp: , Rfl: spironolactone (Aldactone) 25 mg tablet, Take 0.5 tablets (12.5 mg) by mouth in the morning., Disp: 90 tablet, Rfl: 3 Physical Exam Constitutional: Appearance: Normal appearance. He is obese. HENT: Head: Normocephalic and atraumatic. Right Ear: External ear normal. Left Ear: External ear normal. Eyes: Extraocular Movements: Extraocular movements intact. Pupils: Pupils are equal, round, and reactive to light. Neck: Vascular: No carotid bruit. Cardiovascular: Rate and Rhythm: Normal rate and regular rhythm. Pulses: Normal pulses. Heart sounds: Normal heart sounds. Pulmonary: Effort: Pulmonary effort is normal. Breath sounds: Normal breath sounds. Abdominal: General: Bowel sounds are normal. Palpations: Abdomen is soft. Musculoskeletal: General: Normal range of motion. Cervical back: Neck supple. Right lower le+ Pitting Edema present. Left lower le+ Pitting Edema (more content not included)... [facility] Progress note 12-17-2023 Note Date & Type Note Facility 12-17-2023 Note Patient here for 6 m o follow up CAD, hypertension, and chronic diastolic heart failure. Had SILVIA's last month. Denies chest pain, palpitations, and lightheadedness/syncope. Gets very winded with exertion. He does see Dr. Mayers for this. Seeing wound care for his LE. Had labs drawn this morning. Review of Systems Constitutional: Positive for malaise/fatigue. Cardiovascular: Positive for dyspnea on exertion and leg swelling. Skin: Positive for dry skin and poor wound healing. All other systems reviewed and are negative. [facility] Progress note 06-05-2023 Note Date & Type Note Facility 06-05-2023 Note [place] [facility] Subjective Arianne Mcqueen is [...] He was resuscitated and admitted to the [facility]. His initial investigation was negative. He was [...] In August 2021 he was admitted to [facility] and then transferred to [facility] due to COVID infection and large pericardial [...] worsening renal funct (more content not included)... [facility] Evaluation note 09-03-2022 Note Date & Type Note Facility 09-03-2022 Evaluation note Encounter Date Diagnosis Assessment [...] have been reviewed. Hospital notes from the [facility] from his prior admission on 08/18/2022 are [...] years ago and was just admitted to [facility] with pneumonia a couple of weeks ago. [...] as documented in the electronic medical record. [facility] Other Clinical Note 05-08-2022 Note Date & Type Note Facility 05-08-2022 Note PROCEDURE: XR HIP RT 2 3V WO PELVIS HISTORY: Pain in right hip joint COMPARISON: XR pelvis 09/15/2021 FINDINGS: BONES:Complete loss of the joint space with [id number] articulation. Large periarticular degenerative osteophytes. No fracture, dislocation, bone lesion. SOFT TISSUES:No visible soft tissue swelling. EFFUSION:None visible. OTHER: Atherosclerotic disease. IMPRESSION: 1. 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 2. No appreciable acute abnormality. Electronically authenticated by: NOREEN KELLY Date: 2022-05-08 10:48 [facility] Discharge summary note 06-20-2021 Note Date & Type Note Facility 06-20-2021 Note [facility] Discharge summary note 04-23-2021 Note Date & Type Note Facility 04-23-2021 Note [facility] Clinical Note 10-11-2020 Note Date & Type Note Facility 10-11-2020 Note Patient Outreach ([place] [facility]) ARIANNE MCQUEEN ([id number]) 1945 M Date Time Provider Department 10/11/20 WEATHERS, TERRANCE MENDEZ During your visit today, we recorded the following information about you: Allergies As of Date: 10/11/2020 (No Known Allergies) Date Reviewed: 04/21/2020 Reviewed by: Willie Sotelo - Fully Assessed Order(s):SARS-COVID VACCINE 1ST DOSE APPT [32005DSI] Order #: [id number] FUTURE Prescriptions as of 10/11/2020 Sig: TRAZODONE [...] [I73.9] 08/19/2012 Letter Text Encounter Status:Closed by DondeUSER on 10/15/20 [facility] History general Narrative - Reported Note Date & Type Note Facility History general Narrative - Reported Type Medical History diabetes mallitus Medical History HTN Surgical History knee replacement 2010 [facility] Other Summary Purpose Family History No Family [...] section and content) DATE CREATED AUTHOR 09/01/2021 [facility] DATE CREATED AUTHOR AUTHOR'S ORGANIZ ATION 04/06/2022 [facility] DATE CREATED AUTHOR AUTHOR'S ORGANIZ ATION 11/04/2022 [facility] DATE CREATED AUTHOR AUTHOR'S ORGANIZ ATION 11/12/2023 [facility] DATE CREATED AUTHOR AUTHOR'S ORGANIZ ATION 03/16/2024 [facility] DATE CREATED AUTHOR AUTHOR'S ORGANIZ ATION 03/17/2024 [facility] EPIC REASON FOR VISIT (unrecogniz ed section and [...] BE BASED ON THE PRIMARY CLINICAL RECORDS. [employer] [facility]. provides no warranty or guarantee of the accuracy or completeness of information in this document.
== END 2024-03-17 07:49 | disposition home or self-care (01) ==
LOC: NM 07:48
PROVIDERS: PCP Nurse Practitioner; Visit Provider Nurse Practitioner Family
DX: R06.09 Other forms of dyspnea (principal)
CPT/HCPCS: 78452; A9500

== ENCOUNTER 2024-03-23 09:00 | Outpatient (OUT) | payer OTHER, SELFPAY ==
--- NOTE | 2024-03-23 | PCN_ITS ---
CARDIAC STRESS TEST Requesting Physician: Procedure Date: 03/23/2024 This was a Lexiscan stress test with myocardial perfusion imaging performed at the [facility] on 03/23/2024 Informed consent was obtained. An intravenous line was secured. The patient was attached to electrocardiographic monitoring. Baseline ECG and vital signs were obtained. Lexiscan 0.4 mg was infused intravenously, followed by administration of Cardiolite. The patient then went on to obtain myocardial perfusion imaging. Resting heart rate was 60 BPM and maximum heart rate was 81 BPM. Resting blood pressure was 140/68 and maximum blood pressure 142/78. Resting ECG showed evidence of sinus rhythm with first degree AV block and T-wave inversions in V1, V2 and V3. ECG following infusion of Lexiscan showed evidence of sinus rhythm with no ischemic ST changes. Final ECG is comparable to baseline. SUMMARY OF THE FINDINGS: 1. Negative stress test for Lexiscan induced ischemic ECG changes. 2. Myocardial perfusion imaging will be reported separately. [facility]
--- NOTE | 2024-03-23 09:50 | PC.NURSE ---
Nursing Note Cardiac Stress Test Reviewed: Medication, allergies and patient history reviewed. Stress Test: [x ] Patient tolerated stress test well. [ ] Patient unable to tolerate walking on treadmill. Switched to Lexiscan stress test. [ x] No chest pain noted per patient [ ] Chest pain that resolved prior to leaving stress lab. [ x] No dyspnea noted. [ ] Dyspnea that resolved prior to leaving stress lab. [x ] Patient left stress lab asymptomatic and hemodynamically stable. [ ] Patient taken to the Emergency Room due to non-resolving symptoms following stress test. [ ] Patient achieved target heart rate. [x ] Patient unable to achieve target heart rate. [ ] Aminophylline administered as reversal agent to Lexiscan (Regadenoson). [ ] Nitro administered. Nursing Comments: Patient is short of breath at baseline. He states it is not any worse following the administration of the lexiscan. Patient states he is at baseline prior to leaving the room to go to the cafeteria.
[2024-03-23] MEDS: REGADENOSON 0.4 MG/5 ML SYRINGE IV (09:52)
== END 2024-03-23 09:01 | disposition home or self-care (01) ==
LOC: CARD 09:01
PROVIDERS: PCP Nurse Practitioner; Visit Provider Nurse Practitioner Family
DX: R06.09 Other forms of dyspnea (principal)
CPT/HCPCS: 93017; J2785

== ENCOUNTER 2024-05-10 14:15 | Outpatient (OUT) | payer OTHER, SELFPAY | END 2024-05-10 14:16 | disposition home or self-care (01) | LOC: WC 14:15 | PROVIDERS: PCP Nurse Practitioner; Visit Provider Physician Assistant | DX: I87.311 Chronic venous hypertension (idiopathic) with ulcer of right lower extremity (principal); L97.218 Non-pressure chronic ulcer of right calf with other specified severity | CPT/HCPCS: G0463 ==

== ENCOUNTER 2024-05-31 14:26 | Outpatient (OUT) | payer OTHER, SELFPAY | END 2024-05-31 14:27 | disposition home or self-care (01) | LOC: WC 14:26 | PROVIDERS: PCP Nurse Practitioner; Visit Provider Physician Assistant | DX: I87.313 Chronic venous hypertension (idiopathic) with ulcer of bilateral lower extremity (principal); L97.218 Non-pressure chronic ulcer of right calf with other specified severity; L97.822 Non-pressure chronic ulcer of other part of left lower leg with fat layer exposed | CPT/HCPCS: 29581 ==

== ENCOUNTER 2024-06-08 13:58 | Outpatient (OUT) | payer OTHER, SELFPAY ==
--- OUTSIDE RECORDS SUMMARY | 2024-06-08 14:22 | XMS_ITS | CCD ---
Author Organization [facility] Care Team Providers Care Film Touch Up Inspector Name Role Phone MAL BARNES Primary Care Unavailable PAY, ROBIN Referring Unavailable MASROOR, GUDELIA Admitting Unavailable MASROOR, GUDELIA Attending Unavailable AKANKSHA UP Surgeon Unavailable NM Procedure Practitioner Unavailab le NM Procedure Practitioner Unavailab le MOLLY, GUDELIA Surgeon Unavailable Moshe Garcia Unavailable ARIELLA GALLEGO Admitting Unavailable ARIELLA GALLEGO Attending Unavailable MOLLY, DR MENEZES Primary Care Unavailable ARIELLA GALLEOG Consulting Unavailable MOUKARBEL, DR DOMINIQUE Admitting Unavailable [...] Unavailable MOLLY, DR MENEZES Primary Care Unavailable FAOTONIEL, CUBA H Admitting Unavailable MAX CARRERAIKH H Attending Unavailable ROBIN, DR NOREEN Oneill Consulting Unavailable JESSICA ., DR TODD Consulting Unavailable MIS, ESTUARDO Consulting Unavailable DEBI, CUBA H Consulting Unavailable MOLLY, DR MENEZES Admitting Unavailable HOUSE, DR MENEZES Attending Unavailable JORDANVILLE, DR MENEZES Primary Care Unavailable MOLLY, DR MENEZES Consulting Unavailable ROBIN, DR NOREEN Oneill Consulting Unavailable MOUKARBEL, DR DOMINIQUE Admitting Unavailable MOUKARBEL, DR DOMINIQUE Attending Unavailable HOUSE, DR MENEZES Primary Care Unavailable MOUKARBEL, DR DOMINIQUE Consulting Unavailable MOUKARBEL, DR DOMINIQUE Admitting Unavailable MOUKARBEL, DR DOMINIQUE Attending Unavailable JORDANVILLE, DR MENEZES Primary Care Unavailable L[place], DR JOHANA Alvarado Consulting Unavailable MOUKARBEL, DR DOMINIQUE Consulting Unavailable MOUKARBEL, DR DOMINIQUE Admitting Unavailable MARTIN, DR DOMINIQUE Attending Unavailable MOLLY, DR MENEZES Primary Care Unavailable MARTIN, DR DOMINIQUE Consulting Unavailable Molly, Mal Primary Care Unavailable Lisha Ortega Attending Unavailable Lisha Ortega Admitting Unavailable ARIELLA GALLEGO Attending Unavailable ARIELLA GALLEGO Attending Unavailable CATINA SALAZAR Attending Unavailable TERESSA SIERRA Attending Unavailable TERESSA SIERRA Attending Unavailable TERESSA SIERRA Attending Unavailable TERESSA SIERRA Attending Unavailable Mal Barnes MD Unavailable Gilberto Stockton MD Unavailable Mariela AIR BRAKE OPERATOR, Teressa Unavailable Gilberto Stockton MD Primary Care Provider [phone] Medications Current Medications Medication Drug Class(es) Dates Sig (Normalized) Sig (Original) [id number] 200 actuat albuterol 0.09 mg/actuat metered dose inhaler (3 sources) beta2-Adrenergic Agonist take 2 puff(s) by inhalation every six hours for wheezing albuterol HFA 90 mcg/act inhaler Inhale 2 puffs every 6 (six) hours if needed for shortness of breath or wheezing Active amLODIPine 5 mg oral tablet (4 sources) Dihydropyridine Calcium Channel Fitz take 1 tablet by mouth in the morning amLODIPine (Norvasc) 5 MG tablet Take 5 mg by mouth in the morning. Active take 1 tablet by donato th every twenty-four hours amLODIPine Besylate 10 MG 1 tablet Orall y Once a day Active aspirin 81 mg chewable tablet (3 sources) Platelet Aggregation Inhibitor, Nonsteroidal Anti-inflammatory Drug ASPIRIN 81 MG chewable tablet Chew 81 mg in the morning. Active atorvastatin 40 mg oral tablet (3 sources) HMG-CoA Reductase Inhibitor take 1 tablet by mouth at bedtime atorvastatin (Lipitor) 40 MG tablet Take 40 mg by mouth at bedtime Active Blood Glucose Monitoring Suppl (True Metrix Air Glucose Meter) w/Device kit (3 sources) Blood Glucose Monitoring Suppl (True Metrix Air Glucose Meter) w/Device kit 1 each Daily Active Blood Glucose Monitoring Suppl (True Metrix Go Glucose Meter) w/Device kit (3 sources) Blood Glucose Monitoring Suppl (True Metrix Go Glucose Meter) w/Device kit Active carvedilol 12.5 mg oral tablet (3 sources) alpha-Adrenergic Fitz, beta-Adrenergic Fitz Start: 2023 take 1 tablet by mouth in the morning carvedilol (Coreg) 12.5 MG tablet Indications: Atherosclerotic heart disease of [place] coronary artery without angina pectoris (CMS/HCC) Take 1 tablet (12.5 mg) by mouth in the morning and 1 tablet (12.5 mg) in the evening. Take with meals. 180 tablet 1 12/25/2023 Active celecoxib 200 mg oral capsule (3 sources) Nonsteroidal Anti-inflammatory Drug Start: 2023 take 1 capsule by mouth once daily celecoxib (CeleBREX) 200 MG capsule Take 200 mg by mouth Daily 03/23/2024 Active ferrous sulfate 325 mg oral tablet (3 sources) take 1 tablet by mouth at mealtime ferrous sulfate (FeroSul) 325 (65 Fe) MG tablet Take 325 mg by mouth in the morning. Take with meals. Active 30 actuat fluticasone furoate 0.1 mg/actuat / umeclidinium 0.0625 mg/actuat / vilanterol 0.025 mg/actuat dry powder inhaler (3 sources) Anticholinergic, Corticosteroid, beta2-Adrenergic Agonist Start: 2023 Trelegy Ellipta 100-62.5-25 MCG/ACT aerosol powder 1 puff by Other route Daily 12/24/2023 Active furosemide 40 mg oral tablet (1 source) Loop Diuretic take 1 tablet by mouth every twenty-four hours Furosemide 40 MG 1 tablet Orally Once a day Active glipiZIDE 5 mg oral tablet (3 sources) Sulfonylurea Start: 2023 End: 2023 take 0.5 tablet by mouth once daily glipiZIDE (Glucotrol) 5 MG tablet Indications: Type 2 diabetes mellitus without complication, without long-term current use of insulin (CMS/HCC) Take 0.5 tablets (2.5 mg) by mouth Daily 45 tablet 1 03/25/2024 06/23/2024 Active 24 hr isosorbide mononitrate 30 mg extended release oral tablet (3 sources) Nitrate Vasodilator take 1 tablet by mouth in the morning, then take 1 tablet by mouth every twenty-four hours isosorbide mononitrate ER (Imdur) 30 MG 24 hr tablet Take 30 mg by mouth in the morning. Do not crush or chew.. Active metFORMIN hydrochloride 500 mg oral tablet [...] 2 tablets Orally every 12 hrs Active spironolactone 25 mg oral tablet (3 sources) Aldosterone Antagonist Start: 2023 take 1 tablet by mouth once daily spironolactone (Aldactone) 25 MG tablet Indications: Localized edema Take 1 tablet (25 mg) by mouth Daily 90 tablet 1 12/25/2023 Active TraZODone & Diet Manage Prod (TRAZAMINE PO) (3 sources) TraZODone & Diet Manage Prod (TRAZAMINE PO) Take 50 mg by mouth Active Completed/Discontinued Medications Medication Drug Class(es) Dates Sig (Normalized) Sig (Original) Ibuprofen (1 source) Nonsteroidal Anti-inflammatory Drug Ibuprofen Not-Taking Semaglutide,0.25 or 0.5MG/DOS, (Ozempic, 0.25 or 0.5 MG/DOSE,) 2 MG/3ML solution pen-injector (3 sources) Start: 03-14-2024 End: 06-01-2024 Semaglutide,0.25 or 0.5MG/DOS, (Ozempic, 0.25 or 0.5 MG/DOSE,) 2 MG/3ML solution pen-injector Indications: Type 2 diabetes mellitus without complication, without long-term current use of insulin ([facility]) Inject 0.5 mg under the skin 1 (one) time per week for 28 days 3 mL 2 03/14/2024 06/01/2024 Discontinued (Therapy completed) Start: 03-14-2024 Semaglutide,0. 25 or 0.5MG/DOS, (Ozempic, 0.25 or 0.5 MG/DOSE,) 2 MG/3ML solution pen-injector Indications: Type 2 diabetes mellitus without complication, without long-term current use of insulin (CMS/HCC) Inject 0.5 mg under the skin 1 (one) time per week for 28 days 3 mL 2 03/14/2024 Active traZODone hydrochloride 50 mg oral tablet (1 source) Serotonin Reuptake Inhibitor take 1 tablet by mouth every twenty-four hours traZODone HCl 50 MG 1 tablet at bedtime as needed Orally Once a day Not-Taking Triamcinolone (2 sources) Corticosteroid Start: Kenalog -40 mg Sep, 40 mg Start: 09-06-2019 Kenalog -40 mg Aug, 40 mg Problems Active Problems Problem Classification Problem Date Documented Date Episodic/Chronic Acute myocardial infarction (3 sources) Myocardial infarction; Translations: [Acute myocardial infarction, unspecified] Onset: 09-08-2023 09-08-2023 Chronic Aortic; peripheral; and visceral artery aneurysms (3 sources) Dilatation of aorta; Translations: [Aortic ectasia, unspecified site] Onset: 03-14-2024 03-14-2024 Chronic Cardiac dysrhythmias (4 sources) Unspecified atrial fibrillation; Translations: [Ventricular tachycardia] Onset: 07-03-2021 03-14-2024 Chronic Chronic kidney disease (5 sources) Chronic kidney disease stage 3A ; Translations: [Chronic kidney disease, stage 3a ([facility])] Onset: 03-14-2024 03-14-2024 Chronic Chronic obstructive pulmonary disease and bronchiectasis (5 sources) Chronic obstructive lung disease; Translations: [Chronic obstructive pulmonary disease, unspecified] Onset: 09-08-2023 09-08-2023 Chronic Chronic ulcer of skin (3 sources) Chronic ulcer of lower extremity; Translations: [Non-pressure chronic ulcer of unspecified part of unspecified lower leg with unspecified severity] Onset: 03-14-2024 03-14-2024 Chronic Congestive heart failure; nonhypertensive (14 sources) Chronic diastolic (congestive) heart failure; Translations: [Acute on chronic diastolic (congestive) heart failure] Onset: 07-14-2022 Chronic Coronary atherosclerosis and other heart disease (14 sources) Atherosclerotic heart disease of [place] coronary artery without angina pectoris; Translations: [Atherosclerotic heart disease of [place] coronary artery with other forms of angina pectoris] Onset: 08-29-2021 Chronic Diabetes mellitus without complication (5 sources) Type 2 diabetes mellitus; Translations: [Type 2 diabetes mellitus without complications] Onset: 09-08-2023 03-14-2024 Chronic Disorders of lipid metabolism (9 sources) Pure hypercholesterolemia, unspecified; Translations: [Mixed hyperlipidemia] Onset: 08-29-2022 Resolved: 06-01-2024 06-01-2024 Chronic Essential hypertension (11 sources) Essential (primary) hypertension; Translations: [Essential hypertension] Onset: 04-14-2022 Chronic Hypertension with complications and secondary hypertension (1 source) Hypertensive heart and chronic kidney disease with heart failure and stage 1 through stage 4 chronic kidney disease, or unspecified chronic kidney disease; Translations: [HTN HRT CKD W/HF STAGE 1-4/UNS CKD] Onset: 08-29-2022 Chronic Neoplasms of unspecified nature or uncertain behavior (3 sources) Monoclonal gammopathy of uncertain significance; Translations: [Monoclonal gammopathy] Onset: 08-19-2012 12-14-2023 Chronic Osteoarthritis (9 sources) Osteoarthritis of right hip joint; Translations: [Unilateral primary osteoarthritis, right hip] Onset: 2022 Chronic Other aftercare (1 source) 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 clerk (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; Translations: [FOUNDRY WORKER CURRENT USE OF ASPIRIN] Onset: 08-29-2022 Episodic Other aftercare (1 source) automation clerk (current) use of 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/antip latelets; Translations: [FOUNDRY WORKER ANTITHROMBOT/ANTIPLAT LETS] Onset: 08-29-2022 Episodic Other aftercare (1 source) Other paper rewinder operator (current) drug therapy; Translations: [OTH FOUNDRY WORKER CURRENT DRUG THERAPY] Onset: 08-29-2022 Episodic Other aftercare (1 source) [facility] (current) use of oral hypoglycemic drugs; Translations: [FCI USE ORAL HYPOGLYCEMIC DX] Onset: 08-29-2022 Episodic Other circulatory disease (1 source) Personal history of sudden cardiac arrest; Translations: [PERSONAL HISTORY SUDDEN CARD ARREST] Onset: 08-29-2022 Episodic Other connective tissue disease (1 source) History of total knee arthroplasty; Translations: [Presence of right artificial knee joint] Chronic Other diseases of veins and lymphatics (3 sources) Non-infectious disorder of lymphatics; Translations: [Other specified noninfective disorders of lymphatic vessels and lymph nodes] Onset: 12-17-2023 03-14-2024 Chronic Other diseases of veins and lymphatics (3 sources) Lymphedema; Translations: [Lymphedema, not elsewhere classified] Onset: 12-17-2023 03-14-2024 Chronic Other diseases of veins and lymphatics (5 sources) Venous insufficiency of leg; Translations: [Other specified disorders of veins] Onset: 12-14-2023 12-14-2023 Episodic Other ear and sense organ disorders (3 sources) Decreased hearing ; Translations: [Unspecified hearing loss, unspecified ear] Onset: 09-08-2023 09-08-2023 Chronic Other lower respiratory disease (5 sources) Shortness of breath; Translations: [SHORTNESS OF BREATH] Onset: 07-19-2022 Episodic Other lower respiratory disease (2 sources) Other forms of dyspnea; Translations: [Other forms of dyspnea] Onset: 03-09-2024 Episodic Other nutritional; endocrine; and metabolic disorders (1 source) Body mass index (BMI) 40.0-44.9, adult; Translations: [BODY MASS INDEX BMI 40.0-44.9 ADULT] Onset: 08-29-2022 Chronic Other nutritional; endocrine; and metabolic disorders (1 source) Morbid (severe) obesity due to excess calories; Translations: [MORBID SEVERE OBES D/T EXCESS BRENT] Onset: 08-29-2022 Chronic Other nutritional; endocrine; and metabolic disorders (5 sources) Obesity caused by energy imbalance; Translations: [Morbid (severe) obesity due to excess calories] Onset: 09-09-2023 03-14-2024 Chronic Other nutritional; endocrine; and metabolic disorders (5 sources) Body mass index 40+ - severely obese; Translations: [Body mass index (BMI) 45.0-49.9, adult] Onset: 03-14-2024 03-14-2024 Chronic Other screening for suspected conditions (not mental disorders or infectious disease) (5 sources) Patient encounter status; Translations: [Encounter for screening for malignant neoplasm of prostate] Onset: 06-01-2024 06-01-2024 Episodic Peripheral and visceral atherosclerosis (3 sources) Peripheral vascular disease; Translations: [Peripheral vascular disease, unspecified] Onset: 08-19-2012 03-14-2024 Chronic Pneumonia (except that caused by tuberculosis or sexually transmitted disease) (1 source) Unspecified bacterial pneumonia; Translations: [UNSPECIFIED BACTERIAL PNEUMONIA] Onset: 08-29-2022 Episodic Residual codes; unclassified (1 source) Obstructive sleep apnea (adult) (pediatric); Translations: [OBSTRUCTIVE SLEEP APNEA] Onset: 08-29-2022 Chronic Residual codes; unclassified (3 sources) Sleep apnea; Translations: [Sleep apnea, unspecified] Onset: 09-08-2023 09-08-2023 Chronic Residual codes; unclassified (2 sources) Obstructive sleep apnea syndrome; Translations: [Obstructive sleep apnea (adult) (pediatric)] 06-01-2024 Chronic Residual codes; unclassified (1 source) Edema, unspecified; Translations: [EDEMA UNSPECIFIED] Onset: 08-29-2022 Episodic Residual codes; unclassified (1 source) Family history of ischemic heart disease and other diseases of the circulatory system; Translations: [FAM HX ISCHEMIC HRT DZ OTH DZ CIRC] Onset: 08-29-2022 Episodic Respiratory failure; insufficiency; arrest (adult) (1 source) Acute respiratory failure with hypoxia; Translations: [ACUTE RESPIRATORY FAIL W/HYPOXIA] Onset: 08-29-2022 Episodic Screening and history of mental health and substance abuse codes (1 source) Personal history of nicotine dependence; Translations: [PERSONAL HISTORY OF NICOTINE DEPEND] Onset: 08-29-2022 Episodic Septicemia (except in labor) (4 sources) Sepsis, unspecified organism; Translations: [Severe sepsis without septic shock] Onset: 08-18-2022 Episodic Substance-related disorders (3 sources) Nicotine dependence; Translations: [Nicotine dependence, unspecified, uncomplicated] Onset: 12-14-2023 12-14-2023 Chronic Unclassified (1 source) CONTACT W/AND (SUSP) EXPOS COVID-19; Translations: [CONTACT W/AND (SUSP) EXPOS COVID-19] Onset: 08-29-2022 Unclassified (1 source) CHRN KIDNEY DISEASE STG 3 UNSP; Translations: [CHRN KIDNEY DISEASE STG 3 UNSP] Onset: 08-29-2022 Unclassified (1 source) LOW BACK PAIN, UNSPECIFIED; Translations: [LOW BACK PAIN, UNSPECIFIED] Onset: 2022 Unclassified (1 source) Non-pressure chronic ulcer of unspecified part of right lower leg limited to breakdown of skin; Translations: [Non-pressure chronic ulcer of unspecified part of right lower leg limited to breakdown of skin] Onset: 05-18-2023 Unclassified (1 source) Other pericardial effusion (noninflammatory); Translations: [Other pericardial effusion (noninflammatory)] Onset: 07-30-2022 Varicose veins of lower extremity (9 sources) Varicose veins of lower extremity; Translations: [Varicose veins of bilateral lower extremities with pain] Onset: 09-08-2023 09-08-2023 Episodic Past or Other Problems Problem Classification Problem Date Documented Da te Episodic/Chronic Coronary atherosclerosis and other heart disease (3 sources) Presence of aortocoronary bypass graft; Translations: [PRESENCE AORTOCORONARY BYPASS GRAFT] Onset: 05-03-2022 Episodic Diabetes mellitus with complications (4 sources) Type 2 diabetes mellitus with diabetic chronic kidney disease; Translations: [Type 2 diabetes mellitus with ulcer] Onset: 08-29-2022 Resolved: 03-14-2024 03-14-2024 Chronic Mood disorders (3 sources) Mood disorders Onset: 12-14-2023 12-14-2023 Nutritional deficiencies (3 sources) Iron deficiency; Translations: [Iron deficiency] Onset: 09-08-2023 09-08-2023 Episodic Other and unspecified benign neoplasm (3 sources) Benign neoplastic disease; Translations: [Benign neoplasm, unspecified site] Onset: 12-14-2023 12-14-2023 Episodic Other gastrointestinal disorders (3 sources) Constipation; Translations: [Constipation, unspecified] Onset: 09-08-2023 09-08-2023 Episodic Other lower respiratory disease (3 sources) Cough; Translations: [Cough] Onset: 07-03-2021 12-14-2023 Episodic Other lower respiratory disease (3 sources) Solitary nodule of lung; Translations: [Solitary pulmonary nodule] Onset: 06-05-2023 12-14-2023 Episodic Other non-traumatic joint disorders (4 sources) Pain in right hip; Translations: [PAIN IN RIGHT HIP] Onset: 05-08-2022 Episodic Nara-; endo-; and myocarditis; cardiomyopathy (except that caused by tuberculosis or sexually transmitted disease) (4 sources) Pericardial effusion (noninflammatory); Translations: [Pericardial effusion] Onset: 08-29-2021 12-14-2023 Episodic Residual codes; unclassified (3 sources) Bilateral lower limb edema; Translations: [Localized edema] Onset: 09-08-2023 09-08-2023 Episodic Residual codes; unclassified (3 sources) Edema; Translations: [Edema, unspecified] Onset: 07-03-2021 Resolved: 06-01-2024 12-14-2023 Episodic Syncope (3 sources) Syncope and collapse; Translations: [Syncope and collapse] Onset: 03-20-2021 12-14-2023 Episodic Unclassified (1 source) Other pericardial effusion (noninflammatory); Translations: [Other pericardial effusion (noninflammatory)] Onset: 06-05-2023 Results Test Name Value Interpretation Reference Range Facility 36on 03-29-2024 36 Regarding stress haroldo t result from 03/17/2024: CUAUHTEMOC Freeman MA Stress test looks fine No ischemia noted and no reversible defect noted. Patient informed. [facility] Office Visiton 03-09-2024 Follow-up visit [id number] Luis M Mcqueen 1945 M [facility] Provider Department Center 03/09/2024 ARIELLA GRAVES SHILPI Santiago Family History Problem Relation Age of Onset Coronary artery disease Mother Family Status - Relation Status Age at Mother Level of Service:54487 NM OFFICE/OUTPATIENT ESTABLISHED MOD MDM 30 MIN Reason for Visit and Comments: Follow-up [893362] - 3 month follow up [facility] Orders Onlyon 03-09-2024 Orders Only [id number] Luis M Mcqueen 1945 Date Provider Department Center 03/09/2024 LIBRADO CALDERON SHILPI [facility] Family History Problem Relation Age of Onset Coronary artery disease Mother Family Status - Relation Status Age at Mother [facility] 36on 01-02-2024 36 BP is looking good. Continue to hold amlodipine. Thanks [facility] 37on 12-17-2023 37 *Hold amlodipine *We will call you with a plan regarding your water pill. *Continue to check your blood pressure. Write down your readings. We will call you in 2 weeks for your readings. Normal [facility] Office Visiton 12-17-2023 Follow-up visit [id number] Luis M Mcqueen 1945 M Date Provider Department Center 12/17/2023 ARIELLA GRAVES CARD [facility] Family History Problem Relation Age of Onset Coronary artery disease Mother Family Status - Relation Status Age at Mother Level of Service:18726 NM OFFICE/OUTPATIENT ESTABLISHED MOD MDM 30 MIN Reason for Visit and Comments: Coronary Artery Disease [187] Hypertension [579001] Normal [facility] Office Visiton 06-05-2023 Follow-up visit [id number] Luis M Mcqueen 1945 M Date Provider Department Center 06/05/2023 CATINA ROBERTS [facility] Family History Problem Relation Age of Onset Coronary artery disease Mother Family Status - Relation Status Age at Mother Level of Service:18647 NM OFFICE/OUTPATIENT ESTABLISHED LOW MDM 20-29 MIN Reason for Visit and Comments: Follow-up [216031] Coronary Artery Disease [187] Congestive Heart Failure [127] Normal [facility] BNPon 08-20-2022 Natriuretic peptide B (Bld) [Mass/Vol] 1748.0 pg/mL Normal <=1,800.0 [facility] Comment on above: Performed By: #### P OCGLUC #### [facility] [address] [place] [address] Dr. Deidre Tijerina CBC AUTO DIFFon 08-20-2022 BASO # 0.0 103/ul Normal 0.0-0.1 [facility] Comment on above: Performed By: #### C BC #### [facility] [address] [place] [address] Dr. Deidre Tijerina Basophils/100 WBC (Bld) 0.1 % Critically low 0.2-2.0 [facility] Comment on above: Performed By: #### C BC #### [facility] [address] [place] [address] Dr. Deidre Tijerina EO # 0.0 103/ul Normal 0.0-0.7 [facility] Comment on above: Performed By: #### C BC #### [facility] [address] [place] [address] Dr. Deidre Tijerina Eosinophils/100 WBC (Bld) 0.0 % Critically low 0.9-7.0 [facility] Comment on above: Performed By: #### C BC #### [facility] [address] [place] [address] Dr. Deidre Tijerina Erythrocyte distribution width (RBC) [Ratio] 13.6 % Normal 11.0-15.0 [facility] Comment on above: Performed By: #### C BC #### [facility] [address] [place] [address] Dr. Deidre Tijerina Hematocrit (Bld) [Volume fraction] 30.1 % Critically low 42.0-54.0 [facility] Comment on above: Performed By: #### C BC #### [facility] [address] [place] [address] Dr. Deidre Tijerina Hemoglobin (Bld) [Mass/Vol] 9.8 g/dL Critically low 14.0-18.0 [facility] Comment on above: Performed By: #### C BC #### [facility] [address] [place] [address] Dr. Deidre Tijerina IG # 0.13 10e3/ul Critically high 0.00-0.03 [facility] Comment on above: Performed By: #### C BC #### [facility] [address] [place] [address] Dr. Deidre Tijerina IG % 1.0 % Critically high 0.0-0.5 [facility] Comment on above: Performed By: #### C BC #### [facility] [address] [place] [address] Dr. Deidre Tijerina LYMPH # 1.2 103/ul Normal 1.2-3.8 [facility] Comment on above: Performed By: #### C BC #### [facility] [address] [place] [address] Dr. Deidre Tijerina Lymphocytes/100 WBC (Bld) 8.6 % Critically low 20.5-60.0 [facility] Comment on above: Performed By: #### C BC #### [facility] [address] [place] [address] Dr. Deidre Tijerina MANUAL DIFF REQ NO Normal [facility] Comment on above: Performed By: #### C BC #### [facility] [address] [place] [address] Dr. Deidre Tijerina MCH (RBC) [Entitic mass] 30.7 pg Normal 25.9-34.0 [facility] Comment on above: Performed By: #### C BC #### [facility] [address] [place] [address] Dr. Deidre Tijerina MCHC (RBC) [Mass/Vol] 32.6 g/dL Normal 29.9-35.2 [facility] Comment on above: Performed By: #### C BC #### [facility] [address] [place] [address] Dr. Deidre Tijerina MCV (RBC) [Entitic vol] 94.4 fL Critically high 80.0-94.0 [facility] Comment on above: Performed By: #### C BC #### [facility] [address] [place] [address] Dr. Deidre Tijerina MONO # 0.8 103/ul Normal 0.3-0.8 [facility] Comment on above: Performed By: #### C BC #### [facility] [address] [place] [address] Dr. Deidre Tijerina Monocytes/100 WBC (Bld) 6.2 % Normal 1.7-12.0 [facility] Comment on above: Performed By: #### C BC #### [facility] [address] [place] [address] Dr. Deidre Tijerina NEUT # 11.3 103/ul Critically high 1.4-6.5 [facility] Comment on above: Performed By: #### C BC #### [facility] [address] [place] [address] Dr. Deidre Tijerina Neutrophils/100 WBC (Bld) 84.1 % Critically high 43.0-75.0 [facility] Comment on above: Performed By: #### C BC #### [facility] [address] [place] [address] Dr. Deidre Tijerina Platelet mean volume (Bld) [Entitic vol] 9.3 fL Critically low 9.5-13.5 [facility] Comment on above: Performed By: #### C BC #### [facility] [address] [place] [address] Dr. Deidre Tijerina PLT 204 103/ul Normal 150-450 [facility] Comment on above: Performed By: #### C BC #### [facility] [address] [place] [address] Dr. Deidre Tijerina RBC 3.19 106/ul Critically low 4.70-6.10 [facility] Comment on above: Performed By: #### C BC #### [facility] [address] [place] [address] Dr. Deidre Tijerina WBC 13.5 103/ul Critically high 4.0-11.[address] [facility] Comment on above: Performed By: #### C BC #### [facility] [address] [place] [address] Dr. Deidre Tijerina POINT OF CARE GLUCOSEon 07-25 Glucose [Mass/Vol] 164 mg/dL Critically high 74-106 [facility] Comment on above: Performed By: #### P OCGLUC #### [facility] [address] [place] [address] Dr. Deidre Tijerina PROF CHEM 8 (BAS METB)on Anion gap [Moles/Vol] 10.5 mmol/L Normal [facility] Comment on above: Performed By: #### P OCGLUC #### [facility] [address] [place] [address] Dr. Deidre Tijerina Calcium [Mass/Vol] 8.1 mg/dL Critically low 8.5-10.1 [facility] Comment on above: Performed By: #### P OCGLUC #### [facility] [address] [place] [address] Dr. Deidre Tijerina Chloride [Moles/Vol] 100 mmol/L Normal 98-107 [facility] Comment on above: Performed By: #### P OCGLUC #### [facility] [address] [place] [address] Dr. Deidre Tijerina CO2 [Moles/Vol] 24.4 mmol/L Normal 21.0-32.[address] [facility] Comment on above: Performed By: #### P OCGLUC #### [facility] [address] [address] [address] Deidre Tijerina Creatinine [Mass/Vol] 1.17 mg/dL Normal 0.70-1.30 [facility] Comment on above: Performed By: #### P OCGLUC #### [facility] [address] [address] [address] Deidre Tijerina EGFR-AF CITIZEN OF [place] >60 Normal >=[address] [facility] Comment on above: Performed By: #### P OCGLUC #### [facility] [address] [address] [address] Deidre iTjerina EGFR-NON AF CITIZEN OF [place] 60 mL/min/1.73m2 Normal >=60 [facility] Comment on above: Performed By: #### P OCGLUC #### [facility] [address] [address] [address] Deidre Tijerina Glucose [Mass/Vol] 145 mg/dL Critically high 74-106 [facility] Comment on above: Performed By: #### P OCGLUC #### [facility] [address] [address] [address] Deidre Tijerina Potassium [Moles/Vol] 3.9 mmol/L Normal 3.5-5.1 [facility] Comment on above: Performed By: #### P OCGLUC #### [facility] [address] [address] [address] Deidre Tijerina Sodium [Moles/Vol] 131 mmol/L Critically low 136-145 [facility] Comment on above: Performed By: #### P OCGLUC #### [facility] [address] [address] [address] Deidre Tijerina Urea nitrogen [Mass/Vol] 37.0 mg/dL Critically high 7.0-18.0 [facility] Comment on above: Performed By: #### P OCGLUC #### [facility] [address] [place] [address] Dr. Deidre Tijerina Urea nitrogen/Creatinine [Mass ratio] 31.6 mg/mg Normal [facility] Comment on above: Performed By: #### P OCGLUC #### [facility] [address] [place] [address] Dr. Deidre Tijerina XR CHEST 1 Von [...] are again identified. Electronically authenticated by: ESTUARDO GARCIAH Date: 2022-08-20 13:26 Normal [facility] BNPon 08-19-2022 Natriuretic peptide B (Bld) [Mass/Vol] 955.0 pg/mL Normal <=1,800.0 [facility] Comment on above: Performed By: #### C BC #### [facility] [address] [place] [address] Dr. Deidre Tijerina CBC W MANUAL DIFFon 08-19-20 22 ATYPICAL LYMPH # 0.28 103/ul Normal [facility] Comment on above: Performed By: #### P OCGLUC #### [facility] [address] [place] [address] Dr. Deidre Tijerina ATYPICAL LYMPH % 2 % Normal [facility] Comment on above: Performed By: #### P OCGLUC #### [facility] [address] [place] [address] Dr. Deidre Tijerina BAND # 0.0 103/ul Normal 0.0-0.3 [facility] Comment on above: Performed By: #### P OCGLUC #### [facility] [address] [place] [address] Dr. Deidre Tijerina BAND % 0 % Normal 0-5 [facility] Comment on above: Performed By: #### P OCGLUC #### [facility] [address] [address] [address] Deidre Tijerina BASOM # 0.00 103/ul Normal 0.00-0.10 [facility] Comment on above: Performed By: #### P OCGLUC #### [facility] [address] [address] [address] Deidre Tijerina BASOM % 0.0 % Critically low 0.2-2.0 [facility] Comment on above: Performed By: #### P OCGLUC #### [facility] [address] [address] [address] Deidre Tijerina BLAST # Normal [facility] Comment on above: Performed By: #### P OCGLUC #### [facility] [address] [address] [address] Deidre Tijerina BLAST % Normal [facility] Comment on above: Performed By: #### P OCGLUC #### [facility] [address] [address] [address] Deidre Tijerina CORRECTED WBC Normal 4.0-11.[address] [facility] Comment on above: Performed By: #### P OCGLUC #### [facility] [address] [address] [address] Deidre Tijerina EOS # 0.00 103/ul Normal 0.00-0.70 [facility] Comment on above: Performed By: #### P OCGLUC #### [facility] [address] [address] [address] Deidre Tijerina EOS% 0.0 % Critically low 0.9-7.0 [facility] Comment on above: Performed By: #### P OCGLUC #### [facility] [address] [place] [address] Dr. Deidre Tijerina HCT 30.4 % Critically low 42.0-54.0 [facility] Comment on above: Performed By: #### P OCGLUC #### [facility] [address] [place] [address] Dr. Deidre Tijerina HGB 9.8 g/dl Critically low 14.0-18.0 [facility] Comment on above: Performed By: #### P OCGLUC #### [facility] [address] [address] [address] Deidre Tijerina LYMPHM # 0.43 103/ul Critically low 1.20-3.80 [facility] Comment on above: Performed By: #### P OCGLUC #### [facility] [address] [address] [address] Deidre Tijerina LYMPHM% 3.0 % Critically low 20.5-60.0 [facility] Comment on above: Performed By: #### P OCGLUC #### [facility] [address] [address] [address] Deidre Tijerina MCH 30.8 pg Normal 25.9-34.0 [facility] Comment on above: Performed By: #### P OCGLUC #### [facility] [address] [place] [address] Dr. Deidre Tijerina MCHC 32.2 g/dl Normal 29.9-35.2 [facility] Comment on above: Performed By: #### P OCGLUC #### [facility] [address] [address] [address] Deidre Tijerina MCV 95.6 fL Critically high 80.0-94.0 [facility] Comment on above: Performed By: #### P OCGLUC #### [facility] [address] [place] [address] Dr. Deidre Tijerina METAMYELOCYTE # Normal [facility] Comment on above: Performed By: #### P OCGLUC #### [facility] [address] [address] [address] Deidre Tijerina METAMYELOCYTE % Normal [facility] Comment on above: Performed By: #### P OCGLUC #### [facility] [address] [address] [address] Deidre Tijerina MONOM# 0.57 103/ul Normal 0.30-0.80 [facility] Comment on above: Performed By: #### P OCGLUC #### [facility] [address] [address] [address] Deidre Tijerina MONOM% 4.0 % Normal 1.7-12.0 [facility] Comment on above: Performed By: #### P OCGLUC #### [facility] [address] [address] [address] Deidre Tijerina MPV 9.1 fL Critically low 9.5-13.5 [facility] Comment on above: Performed By: #### P OCGLUC #### [facility] [address] [address] [address] Deidre Tijerina MYELOCYTE # Normal [facility] Comment on above: Performed By: #### P OCGLUC #### [facility] [address] [address] [address] Deidre Tijerina MYELOCYTE % Normal [facility] Comment on above: Performed By: #### P OCGLUC #### [facility] [address] [place] [address] Dr. Deidre Tijerina NRBC Normal [facility] Comment on above: Performed By: #### P OCGLUC #### [facility] [address] [address] [address] Deidre Tijerina PLT 188 103/ul Normal 150-450 [facility] Comment on above: Performed By: #### P OCGLUC #### [facility] [address] [address] [address] Deidre Tijerina RBC 3.18 106/ul Critically low 4.70-6.10 [facility] Comment on above: Performed By: #### P OCGLUC #### [facility] [address] [address] [address] Deidre Tijerina RDW 14.0 % Normal 11.0-15.0 [facility] Comment on above: Performed By: #### P OCGLUC #### [facility] [address] [address] [address] Deidre Tijerina SEG # 12.92 103/ul Critically high 1.40-6.50 [facility] Comment on above: Performed By: #### P OCGLUC #### [facility] [address] [address] [address] Deidre Tijerina SEG % 91.0 % Critically high 43.0-75.0 [facility] Comment on above: Performed By: #### P OCGLUC #### [facility] [address] [address] [address] Deidre Tijerina WBC 14.2 103/ul Critically high 4.0-11.[address] [facility] Comment on above: Performed By: #### P OCGLUC #### [facility] [address] [address] [address] Deidre Tijerina POINT OF CARE GLUCOSEon 07-25 Glucose [Mass/Vol] 305 mg/dL Critically high 74-106 [facility] Comment on above: Performed By: #### P OCGLUC #### [facility] [address] [place] [address] Dr. Deidre Tijerina Glucose [Mass/Vol] 181 mg/dL Critically high 74-106 [facility] Comment on above: Performed By: #### C BC #### [facility] [address] [place] [address] Dr. Deidre Tijerina Glucose [Mass/Vol] 342 mg/dL Critically high 74-106 [facility] Comment on above: Performed By: #### P OCGLUC #### [facility] [address] [place] [address] Dr. Deidre Tijerina Glucose [Mass/Vol] 192 mg/dL Critically high -106 [facility] Comment on above: Performed By: #### P OCGLUC #### [facility] [address] [place] [address] Dr. Deidre Tijerina PROF CHEM 8 (BAS METB)on Anion gap [Moles/Vol] 10.3 mmol/L Normal [facility] Comment on above: Performed By: #### B MP, BNP #### [facility] [address] [place] [address] Dr. Deidre Tijerina Calcium [Mass/Vol] 7.9 mg/dL Critically low 8.5-10.1 [facility] Comment on above: Performed By: #### B MP, BNP #### [facility] [address] [place] [address] Dr. Deidre Tijerina Chloride [Moles/Vol] 100 mmol/L Normal 98-107 [facility] Comment on above: Performed By: #### B MP, BNP #### [facility] [address] [place] [address] Dr. Deidre Tijerina CO2 [Moles/Vol] 26.6 mmol/L Normal 21.0-32.[address] [facility] Comment on above: Performed By: #### B MP, BNP #### [facility] [address] [place] [address] Dr. Deidre Tijerina Creatinine [Mass/Vol] 1.29 mg/dL Normal 0.70-1.30 [facility] Comment on above: Performed By: #### B MP, BNP #### [facility] [address] [place] [address] Dr. Deidre Tijerina EGFR-AF CITIZ[place] >60 Normal >=[address] [facility] Comment on above: Performed By: #### B MP, BNP #### [facility] [address] [place] [address] Dr. Deidre Tijerina EGFR-NON AF [place]IZ[place] 54 mL/min/1.73m2 Critically low >=60 [facility] Comment on above: Performed By: #### B MP, BNP #### [facility] [address] [place] [address] Dr. Deidre Tijerina Glucose [Mass/Vol] 190 mg/dL Critically high 74-106 [facility] Comment on above: Performed By: #### B MP, BNP #### [facility] [address] [place] [address] Dr. Deidre Tijerina Potassium [Moles/Vol] 3.9 mmol/L Normal 3.5-5.1 [facility] Comment on above: Performed By: #### B MP, BNP #### [facility] [address] [place] [address] Dr. Deidre Tijerina Sodium [Moles/Vol] 133 mmol/L Critically low 136-145 [facility] Comment on above: Performed By: #### B MP, BNP #### [facility] [address] [place] [address] Dr. Deidre Tijerina Urea nitrogen [Mass/Vol] 35.0 mg/dL Critically high 7.0-18.0 [facility] Comment on above: Performed By: #### B MP, BNP #### [facility] [address] [address] [address] Deidre Tijerina Urea nitrogen/Creatinine [Mass ratio] 27.1 mg/mg Normal [facility] Comment on above: Performed By: #### B MP, BNP #### [facility] [address] [address] [address] Deidre Tijerina BILIRUBIN CONJUGATED (DIRECT )on 08-18-2022 BILI, CONJUGATED 0.4 mg/dL Critically high 0.0-0.2 [facility] Comment on above: Performed By: #### P OCGLUC #### [facility] [address] [place] [address] Dr. Deidre Tijerina BLOOD GASES BTYon 08-18-2022 02 MODE BIPAP Normal [facility] Comment on above: Performed By: #### P OCGLUC #### [facility] [address] [place] [address] Dr. Deidre Tijerina ALLENS TEST Positive [facility] Comment on above: Performed By: #### P OCGLUC #### [facility] [address] [place] [address] Dr. Deidre Tijerina Base excess Calc (Bld) [Moles/Vol] 1.0 mmol/L Normal -2.0-2.0 [facility] Comment on above: Performed By: #### P OCGLUC #### [facility] [address] [place] [address] Dr. Deidre Tijerina BIPAP PRESSURE 16/8 Normal [facility] Comment on above: Performed By: #### P OCGLUC #### [facility] [address] [place] [address] Dr. Deidre Tijerina CPAP Normal [facility] Comment on above: Performed By: #### P OCGLUC #### [facility] [address] [place] [address] Dr. Deidre Tijerina FIO2 35.00 % Normal [facility] Comment on above: Performed By: #### P OCGLUC #### [facility] [address] [address] [address] Deidre Tijerina HCO3 (Bld) [Moles/Vol] 25.0 mmol/L Normal 22.0-26.0 [facility] Comment on above: Performed By: #### P OCGLUC #### [facility] [address] [address] [address] Deidre Tijerina LPM [facility] Comment on above: Performed By: #### P OCGLUC #### [facility] [address] [address] [address] Deidre Tijerina MINUTE VOLUME [address] [facility] Comment on above: Performed By: #### P OCGLUC #### [facility] [address] [address] [address] Deidre Tijerina Oxygen (Bld) [Partial pressure] 83.4 mm[Hg] Normal 80.0-100.0 [facility] Comment on above: Performed By: #### P OCGLUC #### [facility] [address] [address] [address] Deidre Tijerina Oxygen saturation in Blood 97.5 % Normal 95.0-100.0 [facility] Comment on above: Performed By: #### P OCGLUC #### [facility] [address] [address] [address] Deidre Tijerina PCO2 36.2 mmHg Normal 35.0-45.0 [facility] Comment on above: Performed By: #### P OCGLUC #### [facility] [address] [address] [address] Deidre Tijerina PEEP 8 [facility] Comment on above: Performed By: #### P OCGLUC #### [facility] [address] [address] [address] Deidre Tijerina pH (Bld) 7.440 [pH] Normal 7.350-7.450 [facility] Comment on above: Performed By: #### P OCGLUC #### [facility] [address] [address] [address] Deidre Tijerina PIP 17 [facility] Comment on above: Performed By: #### P OCGLUC #### [facility] [address] [address] [address] Deidre Tijerina PS 8 [facility] Comment on above: Performed By: #### P OCGLUC #### [facility] [address] [address] [address] Deidre Tijerina PUNCTURE SITE RR Normal [facility] Comment on above: Performed By: #### P OCGLUC #### [facility] [address] [address] [address] Deidre Tijerina RATE 14 bpm [facility] Comment on above: Performed By: #### P OCGLUC #### [facility] [address] [address] [address] Deidre Tijerina VENT MODE [facility] Comment on above: Performed By: #### P OCGLUC #### [facility] [address] [place] [address] Dr. Deidre Tijerina VT 945 ML [facility] Comment on above: Performed By: #### P OCGLUC #### [facility] [address] [address] [address] Deidre Tijerina BNPon 08-18-2022 Natriuretic peptide B (Bld) [Mass/Vol] 2561.0 pg/mL Critically high <=1,800.0 [facility] Comment on above: Performed By: #### P OCGLUC #### [facility] [address] [place] [address] Dr. Deidre Tijerina CBC W MANUAL DIFFon 08-18-20 22 ANISOCYTOSIS 1+ [facility] Comment on above: Performed By: #### C BCMAN #### [facility] [address] [place] [address] Dr. Deidre Tijerina ATYPICAL LYMPH # Normal [facility] Comment on above: Performed By: #### C BCMAN #### [facility] [address] [place] [address] Dr. Deidre Tijerina ATYPICAL LYMPH % [facility] Comment on above: Performed By: #### C BCMAN #### [facility] [address] [address] [address] Deidre Tijerina BAND # 1.2 103/ul Critically high 0.0-0.3 [facility] Comment on above: Performed By: #### C BCNICOLASA #### [facility] [address] [place] [address] Dr. Deidre Tijerina BAND % 7 % Critically high 0-5 [facility] Comment on above: Performed By: #### C ADALGISA #### [facility] [address] [place] [address] Dr. Deidre Tijerina BASOM # 0.00 103/ul Normal 0.00-0.10 [facility] Comment on above: Performed By: #### C ADALGISA #### [facility] [address] [place] [address] Dr. Deidre Tijerina BASOM % 0.0 % Critically low 0.2-2.0 [facility] Comment on above: Performed By: #### C ADALGISA #### [facility] [address] [place] [address] Dr. Deidre Tijerina BLAST # Normal [facility] Comment on above: Performed By: #### C ADALGISA #### [facility] [address] [place] [address] Dr. Deidre Tijerina BLAST % Normal [facility] Comment on above: Performed By: #### C ADALGISA #### [facility] [address] [place] [address] Dr. Deidre Tijerina CORRECTED WBC Normal 4.0-11.0 [facility] Comment on above: Performed By: #### C ADALGISA #### [facility] [address] [place] [address] Dr. Deidre Tijerina EOS # 0.17 103/ul Normal 0.00-0.70 [facility] Comment on above: Performed By: #### C ADALGISA #### [facility] [address] [place] [address] Dr. Deidre Tijerina EOS% 1.0 % Normal 0.9-7.0 [facility] Comment on above: Performed By: #### C ADALGISA #### [facility] [address] [address] [address] Deidre Tijerina HCT 34.8 % Critically low 42.0-54.0 [facility] Comment on above: Performed By: #### C ADALGISA #### [facility] [address] [address] [address] Deidre Tijerina HGB 11.5 g/dl Critically low 14.0-18.0 [facility] Comment on above: Performed By: #### C ADALGISA #### [facility] [address] [address] [address] Deidre Tijerina LYMPHM # 1.20 103/ul Normal 1.20-3.80 [facility] Comment on above: Performed By: #### C ADALGISA #### [facility] [address] [place] [address] Dr. Deidre Tijerina LYMPHM% 7.0 % Critically low 20.5-60.0 [facility] Comment on above: Performed By: #### C ADALGISA #### [facility] [address] [place] [address] Dr. Deidre Tijerina MCH 31.5 pg Normal 25.9-34.0 [facility] Comment on above: Performed By: #### C ADALGISA #### [facility] [address] [address] [address] Deidre Tijerina MCHC 33.0 g/dl Normal 29.9-35.2 [facility] Comment on above: Performed By: #### C ADALGISA #### [facility] [address] [address] [address] Deidre Tijerina MCV 95.3 fL Critically high 80.0-94.0 [facility] Comment on above: Performed By: #### C ADALGISA #### [facility] [address] [place] [address] Dr. Deidre Tijerina METAMYELOCYTE # Normal [facility] Comment on above: Performed By: #### C ADALGISA #### [facility] [address] [address] [address] Deidre Tijerina METAMYELOCYTE % Normal [facility] Comment on above: Performed By: #### C ADALGISA #### [facility] [address] [address] [address] Deidre Tijerina MONOM# 1.03 103/ul Critically high 0.30-0.[address] [facility] Comment on above: Performed By: #### C ADALGISA #### [facility] [address] [address] [address] Deidre Tijerina MONOM% 6.0 % Normal 1.7-12.0 [facility] Comment on above: Performed By: #### C ADALGISA #### [facility] [address] [address] [address] Deidre Tijerina MPV 8.7 fL Critically low 9.5-13.5 [facility] Comment on above: Performed By: #### C ADALGISA #### [facility] [address] [place] [address] Dr. Deidre Tijerina MYELOCYTE # Normal [facility] Comment on above: Performed By: #### C ADALGISA #### [facility] [address] [address] [address] Deidre Tijerina MYELOCYTE % Normal [facility] Comment on above: Performed By: #### C ADALGISA #### [facility] [address] [address] [address] Deidre Tijerina NRBC Normal [facility] Comment on above: Performed By: #### C ADALGISA #### [facility] [address] [address] [address] Deidre Tijerina PLT 212 103/ul Normal 150-450 [facility] Comment on above: Performed By: #### C ADALGISA #### [facility] [address] [address] [address] Deidre Tijerina RBC 3.65 106/ul Critically low 4.70-6.10 [facility] Comment on above: Performed By: #### C ADALGISA #### [facility] [address] [address] [address] Deidre Tijerina RDW 14.0 % Normal 11.0-15.0 [facility] Comment on above: Performed By: #### C BCMAN #### [facility] [address] [place], [place] [address] Dr. Deidre Tijerina SEG # 13.59 103/ul Critically high 1.40-6.50 [facility] Comment on above: Performed By: #### C BCMAN #### [facility] [address] [place], [place] [address] Dr. Deidre Tijerina SEG % 79.0 % Critically high 43.0-75.0 [facility] Comment on above: Performed By: #### C BCMAN #### [facility] [address] [place], [place] [address] Dr. Deidre Tijerina WBC 17.2 103/ul Critically high 4.0-11.[address] [facility] Comment on above: Performed By: #### C BCMAN #### [facility] [address] [place], [place] [address] CHEST WO CONon [...] by: NOREEN KELLY Date: 2022-08-18 12:12 Normal [facility] CULTURE BLOODon 08-18-2022 Microscopic examination of blood, culture Culture Observations: NO GROWTH AT 5 DAYS. Normal [facility] Comment on above: Performed By: #### C BC #### [facility] [address] [place], [place] [address] Dr. Deidre Tijerina Microscopic examination of blood, culture Culture Observations: NO GROWTH AT 5 DAYS. Normal [facility] Comment on above: Performed By: #### C BC #### [facility] [address] [place], [place] [address] Dr. Deidre Tijerina Covid-19 PCR ([place])on 07-25 SARS-CoV-2 (COVID-19) RNA ISA+probe Ql (Unsp spec) Not detected Normal NOT DETECTED [facility] Comment on above: Result Comment: When diagnostic [...] for this test is supported by the [place] of Health and Human Service's declaration that [...] used). Performed By: #### P OCGLUC #### [facility] [address] [address] [address] Deidre Tijerina ECHO LIMITED STUDYon 022 ECHO LIMITED STUDY Patient: UMM MCQUEEN Exam Date: 08/18/2022 : 1945 Gender:M Ordering : SHAIKH Zay CARRERA . Admission #: [id number] Family : Order #: [id number] CLICK HERE TO VIEW EXAM ECHOCARDIOGRAM REPORT [...] M.D. on 08/26/2022 at 09:00 Normal [facility] INFLUENZA A AND B AGon 08-18 INFLUANEGH SEE BELOW Normal [facility] Comment on above: Result Comment: Nega tive for Flu A protein angiten. Infection due to Flu A cannot be ruled out. Flu A angiten in the sample may be below the detection limit of the test. Performed By: #### P OCGLUC #### [facility] [address] [place] [address] Dr. Deidre Tijerina [facility] SEE BELOW Normal [facility] Comment on above: Result Comment: Nega tive for Flu B protein antigen. Infection due to Flu B cannot be ruled out. Flu B antigen in the sample may be below the detection limit of the test. Performed By: #### P OCGLUC #### [facility] [address] [place] [address] Dr. Deidre Tijerina INFLUENZA A AG Negative Normal NEGATIVE SEE COMMENT [facility] Comment on above: Performed By: #### P OCGLUC #### [facility] [address] [place] [address] Dr. Deidre Tijerina INFLUENZA B AG Negative Normal NEGATIVE SEE COMMENT [facility] Comment on above: Performed By: #### P OCGLUC #### [facility] [address] [place] [address] Dr. Deidre Tijerina INTERNAL CONTROLS Within Normal Limits Normal Wi thin Normal Limits [facility] Comment on above: Performed By: #### P OCGLUC #### [facility] [address] [place] [address] Dr. Deidre Tijerina LACTATE/LACTIC ACIDon 2021 Lactate [Moles/Vol] 2.0 mmol/L Critically high 0.4-1.9 [facility] Comment on above: Performed By: #### P OCGLUC #### [facility] [address] [place] [address] Dr. Deidre Tijerina Lactate [Moles/Vol] 2.0 mmol/L Critically high 0.4-1.9 [facility] Comment on above: Performed By: #### P OCGLUC #### [facility] [address] [place] [address] Dr. Deidre Tijerina POINT OF CARE GLUCOSEon 07-25 Glucose [Mass/Vol] 228 mg/dL Critically high 74-106 [facility] Comment on above: Performed By: #### P OCGLUC #### [facility] [address] [place] [address] Dr. Deidre Tijerina Glucose [Mass/Vol] 119 mg/dL Critically high 74-106 [facility] Comment on above: Performed By: #### P OCGLUC #### [facility] [address] [place] [address] Dr. Deidre Tijerina Glucose [Mass/Vol] 161 mg/dL Critically high 74-106 [facility] Comment on above: Performed By: #### C BC #### [facility] [address] [place] [address] Dr. Deidre Tijerina PROF 14(COMP METB)on 022 Albumin [Mass/Vol] 2.9 g/dL Critically low 3.4-5.0 [facility] Comment on above: Performed By: #### P OCGLUC #### [facility] [address] [place] [address] Dr. Deidre Tijerina Albumin/Globulin [Mass ratio] 0.6 {ratio} Normal [facility] Comment on above: Performed By: #### P OCGLUC #### [facility] [address] [place] [address] Dr. Deidre Tijerina ALP [Catalytic activity/Vol] 71 U/L Normal 46-116 [facility] Comment on above: Performed By: #### P OCGLUC #### [facility] [address] [place] [address] Dr. Deidre Tijerina ALT [Catalytic activity/Vol] 13 U/L Critically low 16-63 [facility] Comment on above: Performed By: #### P OCGLUC #### [facility] [address] [place] [address] Dr. Deidre Tijerina Anion gap [Moles/Vol] 12.3 mmol/L Normal [facility] Comment on above: Performed By: #### P OCGLUC #### [facility] [address] [place] [address] Dr. Deidre Tijerina AST [Catalytic activity/Vol] 14 U/L Critically low 15-37 [facility] Comment on above: Performed By: #### P OCGLUC #### [facility] [address] [place] [address] Dr. Deidre Tijerina Bilirubin [Mass/Vol] 2.6 mg/dL Critically high 0.2-1.0 [facility] Comment on above: Performed By: #### P OCGLUC #### [facility] [address] [address] [address] Deidre Tijerina Calcium [Mass/Vol] 8.5 mg/dL Normal 8.5-10.1 [facility] Comment on above: Performed By: #### P OCGLUC #### [facility] [address] [address] [address] Deidre Tijerina Chloride [Moles/Vol] 98 mmol/L Normal 98-107 [facility] Comment on above: Performed By: #### P OCGLUC #### [facility] [address] [address] [address] Deidre Tijerina CO2 [Moles/Vol] 26.0 mmol/L Normal 21.0-32.[address] [facility] Comment on above: Performed By: #### P OCGLUC #### [facility] [address] [address] [address] Deidre Tijerina Creatinine [Mass/Vol] 1.43 mg/dL Critically high 0.70-1.30 [facility] Comment on above: Performed By: #### P OCGLUC #### [facility] [address] [address] [address] Deidre Tijerina EGFR-AF CITIZEN [place] 58 mL/min/1.73m2 Critically low >=60 [facility] Comment on above: Performed By: #### P OCGLUC #### [facility] [address] [address] [address] Deidre Tijerina EGFR-NON AF CITIZEN OF [place] 48 mL/min/1.73m2 Critically low >=60 [facility] Comment on above: Performed By: #### P OCGLUC #### [facility] [address] [address] [address] Deidre Tijerina Globulin (S) [Mass/Vol] 5.0 g/dL Normal [facility] Comment on above: Performed By: #### P OCGLUC #### [facility] [address] [address] [address] Deidre Tijerina Glucose [Mass/Vol] 165 mg/dL Critically high 74-106 [facility] Comment on above: Performed By: #### P OCGLUC #### [facility] [address] [address] [address] Deidre Tijerina Potassium [Moles/Vol] 4.3 mmol/L Normal 3.5-5.1 [facility] Comment on above: Performed By: #### P OCGLUC #### [facility] [address] [address] [address] Deidre Tijerina Protein [Mass/Vol] 7.9 g/dL Normal 6.4-8.2 [facility] Comment on above: Performed By: #### P OCGLUC #### [facility] [address] [address] [address] Deidre Tijerina Sodium [Moles/Vol] 132 mmol/L Critically low 136-145 [facility] Comment on above: Performed By: #### P OCGLUC #### [facility] [address] [address] [address] Deidre Tijerina Urea nitrogen [Mass/Vol] 25.0 mg/dL Critically high 7.0-18.0 [facility] Comment on above: Performed By: #### P OCGLUC #### [facility] [address] [place] [address] Dr. Deidre Tijerina Urea nitrogen/Creatinine [Mass ratio] 17.5 mg/mg Normal [facility] Comment on above: Performed By: #### P OCGLUC #### [facility] [address] [place] [address] Dr. Deidre Tijerina TROPONIN, HIGH SENSITIVITYon 08-18-2022 HSTROP 8.4 pg/mL Normal 4.0-76.1 [facility] Comment on above: Result Comment: CUT- OFF POINTS HAVE BEEN ESTABLISHED BASED ON THE FOURTH UNIVERSAL DEFINITIONS OF MYOCARDIAL INFARCTION. THE UPPER REFERENCE LIMIT (URL) OF TROPONIN, DEFINED THE 99TH PERCENTILE OF cTnI DISTRIBUTION IN A REFERENCE POPULATION, HAS BEEN CONFIRMED THE DECISION THRESHOLD FOR LA DIAGNOSIS. Performed By: #### P OCGLUC #### [facility] [address] [place] [address] Dr. Deidre Tijerina XR CHEST 1 Von [...] left costophrenic angle is excluded from the [id number]. 3. No overt edema, failure, pneumothorax, or sizable effusion noted within limits of study. 4. Old healed nondisplaced anterior right fifth rib fracture deformity faintly suggested. Electronically authenticated by: ESTUARDO MIS Date: 2022-08-18 09:37 Normal [facility] STRESS/REST MULTIon 08-04 NM STRESS/REST MULTI Patient: ARIANNE MCQUEEN Exam Date: 08/04/2022 : 1945 Gender:M Ordering : DR CATINA SALAZAR M.D. Admission #: [id number] Family : Order #: [id number] CLICK HERE TO VIEW EXAM RADIOLOGY REPORT [...] Banks MD on 08/07/2022 at 08:29 Normal [facility] BNPon 07-14-2022 Natriuretic peptide B (Bld) [Mass/Vol] 164.0 pg/mL Normal <=1,800.0 [facility] Comment on above: Performed By: #### B AIR BRAKE OPERATOR, BMP #### [facility] [address] [place] [address] Dr. Deidre Tijerina PROF CHEM 8 (BAS METB)on Anion gap [Moles/Vol] 9.2 mmol/L Normal [facility] Comment on above: Performed By: #### B AIR BRAKE OPERATOR, BMP #### [facility] [address] [place] [address] Dr. Deidre Tijerina Calcium [Mass/Vol] 8.4 mg/dL Critically low 8.5-10.1 [facility] Comment on above: Performed By: #### B AIR BRAKE OPERATOR, BMP #### [facility] [address] [place] [address] Dr. Deidre Tijerina Chloride [Moles/Vol] 106 mmol/L Normal 98-107 [facility] Comment on above: Performed By: #### B AIR BRAKE OPERATOR, BMP #### [facility] [address] [place] [address] Dr. Deidre Tijerina CO2 [Moles/Vol] 27.0 mmol/L Normal 21.0-32.[address] [facility] Comment on above: Performed By: #### B AIR BRAKE OPERATOR, BMP #### [facility] [address] [place] [address] Dr. Deidre Tijerina Creatinine [Mass/Vol] 1.38 mg/dL Critically high 0.70-1.30 [facility] Comment on above: Performed By: #### B AIR BRAKE OPERATOR, BMP #### [facility] [address] [address] [address] Deidre Tijerina EGFR-AF CITIZEN [place] =60 Normal >=[address] [facility] Comment on above: Performed By: #### B AIR BRAKE OPERATOR, BMP #### [facility] [address] [address] [address] Deidre Tijerina EGFR-NON AF CITIZ[place] 50 mL/min/1.73m2 Critically low >=60 [facility] Comment on above: Performed By: #### B AIR BRAKE OPERATOR, BMP #### [facility] [address] [address] [address] Deidre Tijerina Glucose [Mass/Vol] 95 mg/dL Normal 74-106 [facility] Comment on above: Performed By: #### B AIR BRAKE OPERATOR, BMP #### [facility] [address] [address] [address] Deidre Tijerina Potassium [Moles/Vol] 5.2 mmol/L Critically high 3.5-5.1 [facility] Comment on above: Performed By: #### B AIR BRAKE OPERATOR, BMP #### [facility] [address] [address] [address] Deidre Tijerina Sodium [Moles/Vol] 137 mmol/L Normal 136-145 [facility] Comment on above: Performed By: #### B AIR BRAKE OPERATOR, BMP #### [facility] [address] [address] [address] Deidre Tijerina Urea nitrogen [Mass/Vol] 25.0 mg/dL Critically high 7.0-18.0 [facility] Comment on above: Performed By: #### B AIR BRAKE OPERATOR, BMP #### [facility] [address] [address] [address] Deidre Tijerina Urea nitrogen/Creatinine [Mass ratio] 18.1 mg/mg Normal [facility] Comment on above: Performed By: #### B AIR BRAKE OPERATOR, BMP #### [facility] [address] [address] [address] Deidre Tijerina ECHOCARDIO M/2D COMPLETEon 0 05-08-2022 ECHOCARDIO M/2D COMPLETE Patient: RAIANNE MCQUEEN Exam Date: 05/08/2022 : 1945 Gender:M Ordering : DR CATINA SALAZAR M.D. Admission #: [id number] Family : DR MAL BARNES D.O. Order #: [id number] CLICK HERE TO VIEW EXAM ECHOCARDIOGRAM REPORT [...] Salazar M.D. on 05/09/2022 at 19:48 Normal [facility] XR LSPINE MIN 4 VIEWSon [...] by: NOREEN KELLY Date: 2022-05-08 10:47 Normal [facility] PROF CHEM 8 (BAS METB)on Anion gap [Moles/Vol] 6.8 mmol/L Normal [facility] Comment on above: Performed By: #### P OCGLUC #### [facility] [address] [address] [address] Deidre Tijerina Calcium [Mass/Vol] 8.8 mg/dL Normal 8.5-10.1 [facility] Comment on above: Performed By: #### P OCGLUC #### [facility] [address] [address] [address] Deidre Tijerina Chloride [Moles/Vol] 102 mmol/L Normal 98-107 [facility] Comment on above: Performed By: #### P OCGLUC #### [facility] [address] [address] [address] Deidre Tijerina CO2 [Moles/Vol] 28.1 mmol/L Normal 21.0-32.[address] [facility] Comment on above: Performed By: #### P OCGLUC #### [facility] [address] [address] [address] Deidre Tijerina Creatinine [Mass/Vol] 1.84 mg/dL Critically high 0.70-1.30 [facility] Comment on above: Performed By: #### P OCGLUC #### [facility] [address] [address] [address] Deidre Tijerina EGFR-AF CITIZ[place] 43 mL/min/1.73m2 Critically low >=60 [facility] Comment on above: Performed By: #### P OCGLUC #### [facility] [address] [address] [address] Deidre Tijerina EGFR-NON AF CITIZEN [place] 36 mL/min/1.73m2 Critically low >=60 [facility] Comment on above: Performed By: #### P OCGLUC #### [facility] [address] [address] [address] Deidre Tijerina Glucose [Mass/Vol] 112 mg/dL Critically high 74-106 [facility] Comment on above: Performed By: #### P OCGLUC #### [facility] [address] [address] [address] Deidre Tijerina Potassium [Moles/Vol] 4.9 mmol/L Normal 3.5-5.1 [facility] Comment on above: Performed By: #### P OCGLUC #### [facility] [address] [place] [address] Dr. Deidre Tijerina Sodium [Moles/Vol] 132 mmol/L Critically low 136-145 [facility] Comment on above: Performed By: #### P OCGLUC #### [facility] [address] [place] [address] Dr. Deidre Tijerina Urea nitrogen [Mass/Vol] 40.0 mg/dL Critically high 7.0-18.0 [facility] Comment on above: Performed By: #### P OCGLUC #### [facility] [address] [place] [address] Dr. Deidre Tijerina Urea nitrogen/Creatinine [Mass ratio] 21.7 mg/mg Normal [facility] Comment on above: Performed By: #### P OCGLUC #### [facility] [address] [place] [address] Dr. Deidre Tijerina PROF CHEM 8 (BAS METB)on Anion gap [Moles/Vol] 8.9 mmol/L Normal [facility] Comment on above: Performed By: #### B MP #### [facility] [address] [place] [address] Dr. Deidre Tijerina Calcium [Mass/Vol] 8.4 mg/dL Critically low 8.5-10.1 [facility] Comment on above: Performed By: #### B MP #### [facility] [address] [address] [address] Deidre Tijerina Chloride [Moles/Vol] 102 mmol/L Normal 98-107 [facility] Comment on above: Performed By: #### B MP #### [facility] [address] [address] [address] Deidre Tijerina CO2 [Moles/Vol] 25.9 mmol/L Normal 21.0-32.[address] [facility] Comment on above: Performed By: #### B MP #### [facility] [address] [address] [address] Deidre Tijerina Creatinine [Mass/Vol] 1.20 mg/dL Normal 0.70-1.30 [facility] Comment on above: Performed By: #### B MP #### [facility] [address] [address] [address] Deidre Tijerina EGFR-AF CITIZEN [place] >60 Normal >=60 [facility] Comment on above: Performed By: #### B MP #### [facility] [address] [address] [address] Deidre Tijerina EGFR-NON AF CITIZEN [place] 59 mL/min/1.73m2 Critically low >=60 [facility] Comment on above: Performed By: #### B MP #### [facility] [address] [address] [address] Deidre Tijerina Glucose [Mass/Vol] 117 mg/dL Critically high 74-106 [facility] Comment on above: Performed By: #### B MP #### [facility] [address] [address] [address] Deidre Tijerina Potassium [Moles/Vol] 4.8 mmol/L Normal 3.5-5.1 [facility] Comment on above: Performed By: #### B MP #### [facility] [address] [address] [address] Deidre Tijerina Sodium [Moles/Vol] 132 mmol/L Critically low 136-145 [facility] Comment on above: Performed By: #### B MP #### [facility] [address] [address] [address] Deidre Tijerina Urea nitrogen [Mass/Vol] 25.0 mg/dL Critically high 7.0-18.0 [facility] Comment on above: Performed By: #### B MP #### [facility] [address] [address] [address] Deidre Tijerina Urea nitrogen/Creatinine [Mass ratio] 20.8 mg/mg Normal [facility] Comment on above: Performed By: #### B MP #### [facility] [address] [address] [address] Deidre Tijerina US CHESTon 08-05-2021 US CHEST Normal [facility] Comment on above: Order Comment: serom a in the chest needs a drain placed BASIC METABOLIC PANELon 05-24 Calcium [Mass/Vol] 8.4 mg/dL Low 8.6-10.3 [facility] Comment on above: Order Comment: this is not a nurse draw. lab draw pleaseNo: Do not add to previous draw Performed By: #### 0 0071 ####[facility] [place] [address], [facility] Chloride [Moles/Vol] 102 mmol/L Normal 98-107 [facility] Comment on above: Order Comment: this is not a nurse draw. lab draw pleaseNo: Do not add to previous draw Performed By: #### 0 0071 ####[facility] [facility].[place] [id number], [place] CO2 [Moles/Vol] 25 mmol/L Normal 21-31 [facility] Comment on above: Order Comment: this is not a nurse draw. lab draw pleaseNo: Do not add to previous draw Performed By: #### 0 0071 ####[facility] [facility] [place] [address], [place] Creatinine [Mass/Vol] 2.56 mg/dL High 0.70-1.30 [facility] Comment on above: Order Comment: this is not a nurse draw. lab draw pleaseNo: Do not add to previous draw Performed By: #### 0 0071 ####[facility] [place] [address], [facility] eGFR- 30 ml/min/1.73sq m Abnormal >60 [facility] Comment on above: Order Comment: this is not a nurse draw. lab draw pleaseNo: Do not add to previous draw Result Comment: Calc ulation may not be valid for patients over 70 years Performed By: #### 0 [id number] ####[facility] [place] [address], [facility] eGFR- non- 24 ml/min/1.73sq m Abnormal >60 [facility] Comment on above: Order Comment: this is not a nurse draw. lab draw pleaseNo: Do not add to previous draw Result Comment: Calc ulation may not be valid for patients over 70 years Performed By: #### 0 [id number] ####[address] [facility].[place] [id number], [facility] Glucose [Mass/Vol] 182 mg/dL High 70-100 [facility] Comment on above: Order Comment: this is not a nurse draw. lab draw pleaseNo: Do not add to previous draw Performed By: #### 0 0071 ####[address] [place] [address], [facility] Potassium [Moles/Vol] 4.5 mmol/L Normal 3.5-5.1 [facility] [place] [facility] Comment on above: Order Comment: this is not a nurse draw. lab draw pleaseNo: Do not add to previous draw Performed By: #### 0 0071 ####[facility] [place] [address], [facility] Sodium [Moles/Vol] 133 mmol/L Low 136-145 [facility] Comment on above: Order Comment: this is not a nurse draw. lab draw pleaseNo: Do not add to previous draw Performed By: #### 0 0071 ####[facility] [place] [address], [facility] Urea nitrogen [Mass/Vol] 28 mg/dL High 7-25 [facility] Comment on above: Order Comment: this is not a nurse draw. lab draw pleaseNo: Do not add to previous draw Performed By: #### 0 0071 ####[facility] [place] [address].[address] POC GLUCOSE LABon 06-02-2021 Glucose [Mass/Vol] 246 mg/dL High 70-100 [facility] Comment on above: Performed By: #### 8 5499 ####[address] [place] [address], [facility] Glucose [Mass/Vol] 109 mg/dL High 70-100 [facility] Comment on above: Performed By: #### 8 5499 ####[address] POC SARS COV2 ANTIGEN NEGATI VEon 06-02-2021 POC SARS COV2 ANTIGEN NEG Negative Normal NEGATIVE [facility] Comment on above: Result Comment: Nega [...] of clinicalsigns and symptoms consistent with COVID-19.The [employer] COVID-19 Ag Card is a lateral flow immunoassay intended forthe qualitative detection of nucleocapsid protein antigen [id number] in direct nasal swabs from individuals within [...] Certificate ofAccreditation. Performed By: #### 3 1976 ####[facility] [place] [address], [facility] POC SARS COV2 ANTIGEN NEG Negative Normal NEGATIVE [facility] Comment on above: Result Comment: Nega [...] of clinicalsigns and symptoms consistent with COVID-19.The [employer] COVID-19 Ag Card is a lateral flow immunoassay intended forthe qualitative detection of nucleocapsid protein antigen [id number] in direct nasal swabs from individuals within [...] Certificate ofAccreditation. Performed By: #### 3 1976 ####[facility] [place] [address], [facility] POC GLUCOSE LABon 06-01-2021 Glucose [Mass/Vol] 142 mg/dL High 70-100 [facility] Comment on above: Performed By: #### 8 5499 ####[facility] [place] [address], [facility] Glucose [Mass/Vol] 132 mg/dL High 70-100 [facility] Comment on above: Performed By: #### 8 9249 ####[facility] [place] [address], [facility] Glucose [Mass/Vol] 167 mg/dL High 70-100 [facility] Comment on above: Performed By: #### 8 5499 ####[facility] [place] [address], [facility] Glucose [Mass/Vol] 113 mg/dL High 70-100 [facility] Comment on above: Performed By: #### 8 5499 ####[facility] [facility].[address] APTTon 05-31-2021 aPTT Coag (Bld) [Time] 29.3 s Normal 25.0-35.0 [facility] Comment on above: Result Comment: ALL [...] THIS PURPOSE. Performed By: #### 5 7307, 45317 ####[facility] [facility].[address] CBC W/DIFFon 05-31-2021 ABS IMM GRANS 0.1 10*3/uL Normal 0.0-0.2 The [facility] Comment on above: Order Comment: No: D o not add to previous draw Performed By: #### 5 0103 ####[facility] [facility].[address] ABS NEUTROPHILS 4.9 10*3/uL Normal 1.6-7.6 The [facility] Comment on above: Order Comment: No: D o not add to previous draw Performed By: #### 5 0103 ####[facility] [facility].[address] Basophils (Bld) [#/Vol] 0.1 10*3/uL Normal 0.0-0.2 [facility] Comment on above: Order Comment: No: D o not add to previous draw Performed By: #### 5 0103 ####[facility] [id number], [facility] Basophils/100 WBC (Bld) 0.6 % Normal 0.0-1.0 [facility] Comment on above: Order Comment: No: D o not add to previous draw Performed By: #### 5 0103 ####[facility] [place] [address], [facility] Eosinophils (Bld) [#/Vol] 0.4 10*3/uL Normal 0.0-0.5 [facility] Comment on above: Order Comment: No: D o not add to previous draw Performed By: #### 5 0103 ####[facility] [place] [address], [facility] Eosinophils/100 WBC (Bld) 5.3 % Normal 0.0-6.0 [facility] Comment on above: Order Comment: No: D o not add to previous draw Performed By: #### 5 0103 ####[place] [address] [place] [address], [facility] Erythrocyte distribution width (RBC) [Ratio] 15.7 % High 11.5-15.0 [facility] Comment on above: Order Comment: No: D o not add to previous draw Performed By: #### 5 0103 ####[facility] [place] [address], [facility] Hematocrit (Bld) [Volume fraction] 27.6 % Low 39.0-50.0 [facility] Comment on above: Order Comment: No: D o not add to previous draw Performed By: #### 5 0103 ####[facility] Hemoglobin (Bld) [Mass/Vol] 8.5 g/dL Low 13.0-17.0 [facility] Comment on above: Order Comment: No: D o not add to previous draw Performed By: #### 5 0103 ####[facility] [place] [address], [facility] IMMATURE GRANS 1.1 % High 0.0-1.0 [facility] Comment on above: Order Comment: No: D o not add to previous draw Performed By: #### 5 0103 ####[address] Lymphocytes (Bld) [#/Vol] 1.7 10*3/uL Normal 1.2-4.0 [facility] Comment on above: Order Comment: No: D o not add to previous draw Performed By: #### 5 0103 ####[facility] [place] [address], [facility] Lymphocytes/100 WBC (Bld) 21.4 % Normal 20.0-45.0 [facility] Comment on above: Order Comment: No: D o not add to previous draw Performed By: #### 5 3 ####[facility] [place] [address], [facility] MCH (RBC) [Entitic mass] 29.2 pg Normal 27.0-33.0 [facility] Comment on above: Order Comment: No: D o not add to previous draw Performed By: #### 5 0103 ####[facility] [place] [address], [facility] MCHC (RBC) [Mass/Vol] 30.8 g/dL Low 32.0-35.0 [facility] Comment on above: Order Comment: No: D o not add to previous draw Performed By: #### 5 3 ####[facility] [place], [place] [address]E.[place] [address], [facility] MCV (RBC) [Entitic vol] 94.8 fL Normal 82.0-98.0 [facility] Comment on above: Order Comment: No: D o not add to previous draw Performed By: #### 5 0103 ####[facility] [place] [address], [facility] Monocytes (Bld) [#/Vol] 0.8 10*3/uL Normal 0.1-1.0 [facility] Comment on above: Order Comment: No: D o not add to previous draw Performed By: #### 5 0103 ####[address] MONOS 9.7 % Normal 5.0-12.0 [facility] Comment on above: Order Comment: No: D o not add to previous draw Performed By: #### 5 0103 ####[facility] Neutrophils/100 WBC (Bld) 61.9 % Normal 40.0-72.0 [facility] Comment on above: Order Comment: No: D o not add to previous draw Performed By: #### 5 0103 ####[place] [address] [facility].[address] Nucleated RBC/100 WBC (Bld) [Ratio] 0 % Normal 0-0 [facility] Comment on above: Order Comment: No: D o not add to previous draw Performed By: #### 5 0103 ####[facility] [place] [address], [facility] PLAT CNT 351 10*3/uL Normal 150-400 [facility] Comment on above: Order Comment: No: D o not add to previous draw Performed By: #### 5 3 ####[facility] [place] [address], [facility] RBC (Bld) [#/Vol] 2.91 10*6/uL Low 4.20-5.70 The [facility] Comment on above: Order Comment: No: D o not add to previous draw Performed By: #### 5 0103 ####[facility] [place] [address], [facility] WBC (Bld) [#/Vol] 7.96 10*3/uL Normal 4.00-10.60 [facility] Comment on above: Order Comment: No: D o not add to previous draw Performed By: #### 5 0103 ####[facility] [facility].[address] COMP METABOLIC PANELon 05-31 Albumin [Mass/Vol] 2.9 g/dL Low 3.5-5.7 [facility] Comment on above: Order Comment: No: D o not add to previous drawNurse draw Performed By: #### 1 0070, 60387 ####[facility] ALKALINE PHOSPH 70 IU/L Normal 34-104 The [facility] Comment on above: Order Comment: No: D o not add to previous drawNurse draw Performed By: #### 1 0, 89753 ####[facility] ALT [Catalytic activity/Vol] 9 U/L Normal 7-52 [facility] Comment on above: Order Comment: No: D o not add to previous drawNurse draw Performed By: #### 1 0070, 64471 ####[facility] [place] [address], [facility] AST [Catalytic activity/Vol] 11 U/L Low 13-39 [facility] Comment on above: Order Comment: No: D o not add to previous drawNurse draw Performed By: #### 1 0070, 15627 ####[facility] [place] [address], [place] Bilirubin [Mass/Vol] 0.6 mg/dL Normal 0.3-1.0 [facility] Comment on above: Order Comment: No: D o not add to previous drawNurse draw Performed By: #### 1 0, 14234 ####[facility] [place] [address], [place] Calcium [Mass/Vol] 8.4 mg/dL Low 8.6-10.3 [facility] Comment on above: Order Comment: No: D o not add to previous drawNurse draw Performed By: #### 1 0, 95633 ####[facility] [place] [address], [place] Chloride [Moles/Vol] 102 mmol/L Normal 98-107 [facility] Comment on above: Order Comment: No: D o not add to previous drawNurse draw Performed By: #### 1 0, 52462 ####[facility] [id number], [facility] CO2 [Moles/Vol] 27 mmol/L Normal 21-31 [facility] Comment on above: Order Comment: No: D o not add to previous drawNurse draw Performed By: #### 1 0, 53082 ####[facility] [place] [address], [facility] Creatinine [Mass/Vol] 2.90 mg/dL High 0.70-1.30 [facility] Comment on above: Order Comment: No: D o not add to previous drawNurse draw Performed By: #### 1 0, 77674 ####[facility] [place] [address], [place] eGFR- 26 ml/min/1.73sq m Abnormal >60 [facility] Comment on above: Order Comment: No: D o not add to previous drawNurse draw Result Comment: Calc ulation may not be valid for patients over 70 years Performed By: #### 1 0, 31756 ####[facility] [place] [address], [facility] eGFR- non- 21 ml/min/1.73sq m Abnormal >60 [facility] Comment on above: Order Comment: No: D o not add to previous drawNurse draw Result Comment: Calc ulation may not be valid for patients over 70 years Performed By: #### 1 0070, 16133 ####[facility] [place] [address], [facility] Glucose [Mass/Vol] 97 mg/dL Normal 70-100 [facility] Comment on above: Order Comment: No: D o not add to previous drawNurse draw Performed By: #### 1 0, 58028 ####[facility] [place] [address], [place] Potassium [Moles/Vol] 4.4 mmol/L Normal 3.5-5.1 [facility] Comment on above: Order Comment: No: D o not add to previous drawNurse draw Performed By: #### 1 0, 18193 ####[facility] [place] [address], [facility] Protein [Mass/Vol] 6.5 g/dL Normal 6.0-8.3 [facility] Comment on above: Order Comment: No: D o not add to previous drawNurse draw Performed By: #### 1 0, 54595 ####[facility] [place] [address], [place] Sodium [Moles/Vol] 134 mmol/L Low 136-145 [facility] Comment on above: Order Comment: No: D o not add to previous drawNurse draw Performed By: #### 1 0, 74074 ####[facility] Urea nitrogen [Mass/Vol] 31 mg/dL High 7-25 [facility] Comment on above: Order Comment: No: D o not add to previous drawNurse draw Performed By: #### 1 0070, 83706 ####[facility] [place] [address], [facility] MAGNESIUM BLOODon 05-31-2021 Magnesium [Mass/Vol] 1.8 mg/dL Low 1.9-2.7 [facility] Comment on above: Performed By: #### 1 0, 80260 ####[facility] [place] [address], [facility] POC GLUCOSE LABon 05-31-2021 Glucose [Mass/Vol] 120 mg/dL High 70-100 [facility]: Performed By: #### 8 5499 ####[facility] [place] [address], [facility] Glucose [Mass/Vol] 124 mg/dL High 70-100 [facility] Comment on above: Performed By: #### 8 5499 ####[facility] [place] [address], [facility] Glucose [Mass/Vol] 136 mg/dL High 70-100 [facility] Comment on above: Performed By: #### 8 5499 ####[facility] [place] [address], [facility] Glucose [Mass/Vol] 115 mg/dL High 70-100 [facility] Comment on above: Performed By: #### 8 5499 ####[facility] [place] [address], [facility] PORTABLE CHEST 1 VIEWon 10-0 PORTABLE CHEST 1 VIEW Normal [facility] Comment on above: Order Comment: evalu ate for CHF PROTHROMBIN TIMEon INR Coag (PPP) [Relative time] 1.13 {INR} Normal 0.91-1.16 [facility] Comment on above: Result Comment: ACCC P RECOMMENDED INR FOR WARFARIN THERAPY CONDITION INRPROPHYLAXIS OF VENOUS THROMBOSIS 2-3(HIGH-RISK SURGERY)TREATMENT OF VENOUS THROMBOSIS 2-3TREATMENT OF PULMONARY EMBOLISM 2-3PREVENTION OF SYSTEMIC EMBOLISM: 2-3 ACUTE MYOCARDIAL INFARCTION TISSUE HEART VALVES VALVULAR HEART DISEASE ATRIAL FIBRILLATION RECURRENT SYSTEMIC EMBOLISMMECHANICAL HEART VALVE 2.5-3.5 FROM: ORAL ANTICOAGULANTS. MECHANISM OF ACTION, CLINICALEFFECTIVENESS, AND OPTIMAL THERAPEUTIC RANGE. [id number]. Performed By: #### 5 7307, 80760 ####[facility] [facility].[address] PT Coag (PPP) [Time] 14.5 s Normal 12.3-14.8 [facility] Comment on above: Result Comment: ALL RESULTS MUST BE INTERPRETED WITH RESPECT TO BLOOD DRAWING ARTIFACTOR DILUTION ERROR OF ANTICOAGULANT AT THE TIME OF SAMPLING. Performed By: #### 5 7307, 19145 ####[facility] [place] [address], [facility] ALBUMIN BLOODon 05-30-2021 Albumin [Mass/Vol] 3.0 g/dL Low 3.5-5.7 [facility] Comment on above: Performed By: #### 1 0070, 02634, 69861 ####[facility] [place] [address], [facility] BASIC METABOLIC PANELon 10-0 Calcium [Mass/Vol] 8.6 mg/dL Normal 8.6-10.3 [facility] Comment on above: Order Comment: No: D o not add to previous draw Performed By: #### 1 0, 27275, 22610 ####[facility] [id number], [facility] Chloride [Moles/Vol] 102 mmol/L Normal 98-107 [facility] Comment on above: Order Comment: No: D o not add to previous draw Performed By: #### 1 0, 54918, 10286 ####[facility] [place] [address], [facility] CO2 [Moles/Vol] 25 mmol/L Normal 21-31 [facility] Comment on above: Order Comment: No: D o not add to previous draw Performed By: #### 1 0, , 13178 ####[facility] [place] [address], [facility] Creatinine [Mass/Vol] 2.49 mg/dL High 0.70-1.30 [facility] Comment on above: Order Comment: No: D o not add to previous draw Performed By: #### 1 0, , 39245 ####[facility] eGFR- 31 ml/min/1.73sq m Abnormal >60 [facility] Comment on above: Order Comment: No: D o not add to previous draw Result Comment: Calc ulation may not be valid for patients over 70 years Performed By: #### 1 0, 55125, 16568 ####[facility] [place] [address], [facility] eGFR- non- 25 ml/min/1.73sq m Abnormal >60 [facility] Comment on above: Order Comment: No: D o not add to previous draw Result Comment: Calc ulation may not be valid for patients over 70 years Performed By: #### 1 69, , 65757 ####[facility] [id number], [place] Glucose [Mass/Vol] 100 mg/dL Normal 70-100 [facility] Comment on above: Order Comment: No: D o not add to previous draw Performed By: #### 1 69, , 19176 ####[facility] [place] [address], [place] Potassium [Moles/Vol] 4.5 mmol/L Normal 3.5-5.1 [facility] Comment on above: Order Comment: No: D o not add to previous draw Performed By: #### 1 69, , ####[facility] [id number], [place] Sodium [Moles/Vol] 134 mmol/L Low 136-145 [facility] Comment on above: Order Comment: No: D o not add to previous draw Performed By: #### 1 69, , ####[facility] [place] [address], [place] Urea nitrogen [Mass/Vol] 32 mg/dL High 7-25 [facility] Comment on above: Order Comment: No: D o not add to previous draw Performed By: #### 1 69, , ####[facility] [place] [address], [place] CBC COMPLETE BLOOD COUNTon Erythrocyte distribution width (RBC) [Ratio] 15.7 % High 11.5-15.0 [facility] Comment on above: Order Comment: No: D o not add to previous draw Performed By: #### 5 0608 ####[facility] Hematocrit (Bld) [Volume fraction] 26.5 % Low 39.0-50.0 [facility] Comment on above: Order Comment: No: D o not add to previous draw Performed By: #### 5 0608 ####[facility] [facility].[address] Hemoglobin (Bld) [Mass/Vol] 8.4 g/dL Low 13.0-17.0 [facility] Comment on above: Order Comment: No: D o not add to previous draw Performed By: #### 5 0608 ####[facility] [facility].[address] MCH (RBC) [Entitic mass] 28.9 pg Normal 27.0-33.0 [facility] Comment on above: Order Comment: No: D o not add to previous draw Performed By: #### 5 0608 ####[facility] [facility].[address] MCHC (RBC) [Mass/Vol] 31.7 g/dL Low 32.0-35.0 [facility] Comment on above: Order Comment: No: D o not add to previous draw Performed By: #### 5 0608 ####[place] [address] [facility].[address] MCV (RBC) [Entitic vol] 91.1 fL Normal 82.0-98.0 [facility] Comment on above: Order Comment: No: D o not add to previous draw Performed By: #### 5 0608 ####[facility] [facility].[address] Nucleated RBC/100 WBC (Bld) [Ratio] 0 % Normal 0-0 [facility] Comment on above: Order Comment: No: D o not add to previous draw Performed By: #### 5 0608 ####[facility] [facility].[address] PLAT CNT 338 10*3/uL Normal 150-400 [facility] Comment on above: Order Comment: No: D o not add to previous draw Performed By: #### 5 0608 ####[facility] RBC (Bld) [#/Vol] 2.91 10*6/uL Low 4.20-5.70 [facility] Comment on above: Order Comment: No: D o not add to previous draw Performed By: #### 5 0608 ####[facility] [facility].[address] WBC (Bld) [#/Vol] 7.23 10*3/uL Normal 4.00-10.60 [facility] Comment on above: Order Comment: No: D o not add to previous draw Performed By: #### 5 0608 ####[facility] [facility].[address] CREATININE URINE RANDOMon Creatinine (U) [Mass/Vol] 39.0 mg/dL Normal [facility] Comment on above: Order Comment: No: D o not add to previous draw Result Comment: Ther e are no established reference values for random urine specimens Performed By: #### 2 5706, 49850 ####[facility] [facility].[address] MAGNESIUM BLOODon 05-30-2021 Magnesium [Mass/Vol] 1.9 mg/dL Normal 1.9-2.7 [facility] Comment on above: Order Comment: No: D o not add to previous draw Performed By: #### 1 0070, 45742, 60687 ####[facility] [facility].[address] POC GLUCOSE LABon 05-30-2021 Glucose [Mass/Vol] 155 mg/dL High 70-100 [facility] Comment on above: Performed By: #### 8 5499 ####[facility] [place] [address], [facility] Glucose [Mass/Vol] 129 mg/dL High 70-100 [facility] Comment on above: Performed By: #### 8 5499 ####[facility] [place] [address], [facility] Glucose [Mass/Vol] 147 mg/dL High 70-100 [facility] Comment on above: Performed By: #### 8 5499 ####[facility] [place] [address], [facility] PORTABLE CHEST 1 VIEWon PORTABLE CHEST 1 VIEW Normal [facility] Comment on above: Order Comment: Evalu ate for Atelectasis T PROT UR Isi 05-30-2021 U TOTAL PROTEIN 88.8 mg/dL Normal [facility] Comment on above: Order Comment: No: D o not add to previous draw Result Comment: Ther e are no established reference values for random urine specimens Performed By: #### 2 5706, 77905 ####[facility] [place] [address], [facility] URINE TRINH STAIN/EOSon EOSINOPHIL SMEAR NONE SEEN Normal NSN [facility] Comment on above: Order Comment: No: D o not add to previous draw [place] Normal [facility] Comment on above: Order Comment: No: D o not add to previous draw Result Comment: Test Performed by [employer] [address] [place] [address] [id number] Ljibfjph 05/30/2021 20:40 US RENALon 05-30-2021 US RENAL Normal [facility] Comment on above: Order Comment: Other , FREDA BASIC METABOLIC PANELon Calcium [Mass/Vol] 8.4 mg/dL Low 8.6-10.3 [facility] Comment on above: Order Comment: No: D o not add to previous draw Performed By: #### 4 1000, 50065, 57922 ####[facility] [place] [address], [facility] Chloride [Moles/Vol] 102 mmol/L Normal 98-107 [facility] Comment on above: Order Comment: No: D o not add to previous draw Performed By: #### 4 1000, 69534, 88956 ####[facility] [place] [address], [facility] CO2 [Moles/Vol] 25 mmol/L Normal 21-31 [facility] Comment on above: Order Comment: No: D o not add to previous draw Performed By: #### 4 1000, 54789, 64502 ####[facility] [place] [address], [facility] Creatinine [Mass/Vol] 2.12 mg/dL High 0.70-1.30 [facility] Comment on above: Order Comment: No: D o not add to previous draw Performed By: #### 4 1000, 76990, 86292 ####[facility] [facility].[address] eGFR- 37 ml/min/1.73sq m Abnormal >60 [facility] Comment on above: Order Comment: No: D o not add to previous draw Result Comment: Calc ulation may not be valid for patients over 70 years Performed By: #### 4 1000, 26898, 10722 ####[facility] eGFR- non- 30 ml/min/1.73sq m Abnormal >60 [facility] Comment on above: Order Comment: No: D o not add to previous draw Result Comment: Calc ulation may not be valid for patients over 70 years Performed By: #### 4 1000, 93970, 96734 ####[facility] [place] [address], [facility] Glucose [Mass/Vol] 103 mg/dL High 70-100 [facility]: Order Comment: No: D o not add to previous draw Performed By: #### 4 1000, 84664, 01921 ####[facility] [id number], [facility] Potassium [Moles/Vol] 4.6 mmol/L Normal 3.5-5.1 [facility] Comment on above: Order Comment: No: D o not add to previous draw Performed By: #### 4 1000, 76005, 54353 ####[facility] [facility] [place] [address], [facility] Sodium [Moles/Vol] 133 mmol/L Low 136-145 [facility] Comment on above: Order Comment: No: D o not add to previous draw Performed By: #### 4 1000, 89733, 61990 ####[facility] [facility] [place] [address], [facility] Urea nitrogen [Mass/Vol] 33 mg/dL High 7-25 [facility] Comment on above: Order Comment: No: D o not add to previous draw Performed By: #### 4 1000, 40673, 28189 ####[facility] [facility].[address] CBC COMPLETE BLOOD COUNTon 1 - Erythrocyte distribution width (RBC) [Ratio] 15.7 % High 11.5-15.0 [facility] Comment on above: Order Comment: No: D o not add to previous draw Performed By: #### 5 0608 ####[facility] [place] [address], [facility] Hematocrit (Bld) [Volume fraction] 26.4 % Low 39.0-50.0 [facility] Comment on above: Order Comment: No: D o not add to previous draw Performed By: #### 5 0608 ####[facility] [facility].[address] Hemoglobin (Bld) [Mass/Vol] 8.4 g/dL Low 13.0-17.0 [facility] Comment on above: Order Comment: No: D o not add to previous draw Performed By: #### 5 0608 ####[address] MCH (RBC) [Entitic mass] 29.0 pg Normal 27.0-33.0 [facility] Comment on above: Order Comment: No: D o not add to previous draw Performed By: #### 5 0608 ####[address] MCHC (RBC) [Mass/Vol] 31.8 g/dL Low 32.0-35.0 [facility] Comment on above: Order Comment: No: D o not add to previous draw Performed By: #### 5 0608 ####[address] MCV (RBC) [Entitic vol] 91.0 fL Normal 82.0-98.0 [facility] Comment on above: Order Comment: No: D o not add to previous draw Performed By: #### 5 0608 ####[address] Nucleated RBC/100 WBC (Bld) [Ratio] 0 % Normal 0-0 [facility] Comment on above: Order Comment: No: D o not add to previous draw Performed By: #### 5 0608 ####[address] PLAT CNT 346 10*3/uL Normal 150-400 [facility] Comment on above: Order Comment: No: D o not add to previous draw Performed By: #### 5 0608 ####[facility] [place] [address], [facility] RBC (Bld) [#/Vol] 2.90 10*6/uL Low 4.20-5.70 The [facility] Comment on above: Order Comment: No: D o not add to previous draw Performed By: #### 5 0608 ####[facility] [place] [address], [facility] WBC (Bld) [#/Vol] 7.17 10*3/uL Normal 4.00-10.60 [facility] Comment on above: Order Comment: No: D o not add to previous draw Performed By: #### 5 0608 ####[facility] [place] [address], [facility] MAGNESIUM BLOODon 05-29-2021 Magnesium [Mass/Vol] 1.9 mg/dL Normal 1.9-2.7 [facility] Comment on above: Order Comment: No: D o not add to previous draw Performed By: #### 4 1000, 35935, 16510 ####[facility] [place] [address], [facility] PHOSPHORUS BLOODon Phosphate [Mass/Vol] 4.4 mg/dL Normal 2.5-5.0 [facility] Comment on above: Order Comment: No: D o not add to previous draw Performed By: #### 4 1000, 08900, 71888 ####[facility] [place] [address], [facility] POC GLUCOSE LABon 05-29-2021 Glucose [Mass/Vol] 183 mg/dL High 70-100 [facility] Comment on above: Performed By: #### 8 5499 ####[facility] [place] [address], [place] Glucose [Mass/Vol] 124 mg/dL High 70-100 [facility] Comment on above: Performed By: #### 8 5499 ####[facility] [place] [address], [place] Glucose [Mass/Vol] 187 mg/dL High 70-100 [facility] Comment on above: Performed By: #### 8 5499 ####[facility] [place] [address], [place] Glucose [Mass/Vol] 189 mg/dL High 70-100 [facility] Comment on above: Performed By: #### 8 5499 ####[facility] [place] [address], [place] PORTABLE CHEST 1 VIEWon 10-0 PORTABLE CHEST 1 VIEW Normal [facility] Comment on above: Order Comment: evalu ate for Atelectasis BASIC METABOLIC PANELon 10-0 Calcium [Mass/Vol] 8.3 mg/dL Low 8.6-10.3 [facility] Comment on above: Order Comment: No: D o not add to previous draw Performed By: #### 2 6058, 61422, 84818, 17685 ####[facility] [place] [address], [place] Chloride [Moles/Vol] 99 mmol/L Normal 98-107 [facility] Comment on above: Order Comment: No: D o not add to previous draw Performed By: #### 2 5508, 88502, 93139, 38254 ####[facility] [place] [address], [place] CO2 [Moles/Vol] 26 mmol/L Normal 21-31 [facility] Comment on above: Order Comment: No: D o not add to previous draw Performed By: #### 2 5508, 90020, 84680, 69864 ####[facility] [place] [address], [place] Creatinine [Mass/Vol] 2.18 mg/dL High 0.70-1.30 [facility] Comment on above: Order Comment: No: D o not add to previous draw Performed By: #### 2 5508, 07169, 38638, 11994 ####[facility] [place] [address], [facility] eGFR- 36 ml/min/1.73sq m Abnormal >60 [facility] Comment on above: Order Comment: No: D o not add to previous draw Result Comment: Calc ulation may not be valid for patients over 70 years Performed By: #### 2 5508, 41508, 72591, 10326 ####[facility] eGFR- non- 29 ml/min/1.73sq m Abnormal >60 [facility] Comment on above: Order Comment: No: D o not add to previous draw Result Comment: Calc ulation may not be valid for patients over 70 years Performed By: #### 2 5508, 27034, 61338, 34173 ####[facility] [place] [address], [facility] Glucose [Mass/Vol] 100 mg/dL Normal 70-100 [facility] Comment on above: Order Comment: No: D o not add to previous draw Performed By: #### 2 5508, 03094, 85792, 42654 ####[facility] [place] [address], [facility] Potassium [Moles/Vol] 5.3 mmol/L High 3.5-5.1 [facility] Comment on above: Order Comment: No: D o not add to previous draw Performed By: #### 2 5508, 07890, 29287, 86221 ####[facility] [place] [address], [place] Sodium [Moles/Vol] 131 mmol/L Low 136-145 [facility] Comment on above: Order Comment: No: D o not add to previous draw Performed By: #### 2 5508, 92179, 23192, 39274 ####[facility] Urea nitrogen [Mass/Vol] 33 mg/dL High 7-25 [facility] Comment on above: Order Comment: No: D o not add to previous draw Performed By: #### 2 5508, 06601, 70182, 86595 ####[facility] CBC W/DIFFon 05-28-2021 ABS IMM GRANS 0.2 10*3/uL Normal 0.0-0.2 The [facility] Comment on above: Performed By: #### 5 0103 ####[facility] ABS NEUTROPHILS 5.6 10*3/uL Normal 1.6-7.6 [facility] Comment on above: Performed By: #### 5 0103 ####[facility] Basophils (Bld) [#/Vol] 0.0 10*3/uL Normal 0.0-0.2 [facility] Comment on above: Performed By: #### 5 0103 ####[facility] [place] [address], [facility] Basophils/100 WBC (Bld) 0.5 % Normal 0.0-1.0 [facility] Comment on above: Performed By: #### 5 0103 ####[facility] [place] [address], [facility] Eosinophils (Bld) [#/Vol] 0.4 10*3/uL Normal 0.0-0.5 [facility] Comment on above: Performed By: #### 5 0103 ####[facility] [place] [address], [facility] Eosinophils/100 WBC (Bld) 4.5 % Normal 0.0-6.0 [facility] Comment on above: Performed By: #### 5 0103 ####[facility] [facility].[address] Erythrocyte distribution width (RBC) [Ratio] 15.6 % High 11.5-15.0 [facility] Comment on above: Performed By: #### 3 ####[facility] [facility].[address] Hematocrit (Bld) [Volume fraction] 27.7 % Low 39.0-50.0 [facility] Comment on above: Performed By: #### 3 ####[facility] [facility].[address] Hemoglobin (Bld) [Mass/Vol] 8.6 g/dL Low 13.0-17.0 [facility] Comment on above: Performed By: #### 5 0103 ####[facility] [facility].[address] IMMATURE GRANS 1.8 % High 0.0-1.0 The [facility] Comment on above: Performed By: #### 5 0103 ####[facility] [place] [address], [facility] Lymphocytes (Bld) [#/Vol] 1.8 10*3/uL Normal 1.2-4.0 [facility] Comment on above: Performed By: #### 3 ####[facility] [place] [address], [facility] Lymphocytes/100 WBC (Bld) 20.4 % Normal 20.0-45.0 [facility] Comment on above: Performed By: #### 5 0103 ####[facility] [place] [address], [facility] MCH (RBC) [Entitic mass] 28.6 pg Normal 27.0-33.0 [facility] Comment on above: Performed By: #### 3 ####[facility] MCHC (RBC) [Mass/Vol] 31.0 g/dL Low 32.0-35.0 [facility] Comment on above: Performed By: #### 5 0103 ####[facility] [place] [address], [facility] MCV (RBC) [Entitic vol] 92.0 fL Normal 82.0-98.0 [facility] Comment on above: Performed By: #### 5 3 ####[facility] Monocytes (Bld) [#/Vol] 0.9 10*3/uL Normal 0.1-1.0 [facility] Comment on above: Performed By: #### 5 3 ####[facility] MONOS 9.9 % Normal 5.0-12.0 [facility] Comment on above: Performed By: #### 5 3 ####[facility] Neutrophils/100 WBC (Bld) 62.9 % Normal 40.0-72.0 [facility] Comment on above: Performed By: #### 5 3 ####[facility] [place] [address], [facility] Nucleated RBC/100 WBC (Bld) [Ratio] 0 % Normal 0-0 [facility] Comment on above: Performed By: #### 5 3 ####[facility] [facility].[address] PLAT CNT 387 10*3/uL Normal 150-400 [facility] Comment on above: Performed By: #### 5 0103 ####[facility] RBC (Bld) [#/Vol] 3.01 10*6/uL Low 4.20-5.70 [facility] Comment on above: Performed By: #### 5 0103 ####[facility] WBC (Bld) [#/Vol] 8.82 10*3/uL Normal 4.00-10.60 [facility] Comment on above: Performed By: #### 5 0103 ####[facility] CPKon 05-28-2021 CK [Catalytic activity/Vol] 19 U/L Low 30-223 [facility] Comment on above: Performed By: #### 2 5508, 80854, 63669, 40167 ####[facility] MAGNESIUM BLOODon 05-28-2021 Magnesium [Mass/Vol] 1.9 mg/dL Normal 1.9-2.7 [facility] Comment on above: Order Comment: No: D o not add to previous draw Performed By: #### 2 5508, 06207, 17460, 92218 ####[facility] Operative Reporton 1 Operative Report Normal [facility] PHOSPHORUS BLOODon 1 Phosphate [Mass/Vol] 4.5 mg/dL Normal 2.5-5.0 [facility] Comment on above: Performed By: #### 2 5508, 09829, 45111, 65032 ####[facility] [place] [address], [place] POC GLUCOSE LABon 05-28-2021 Glucose [Mass/Vol] 120 mg/dL High 70-100 [facility] Comment on above: Performed By: #### 8 5499 ####[facility] [place] [address], [place] Glucose [Mass/Vol] 130 mg/dL High 70-100 [facility] Comment on above: Performed By: #### 8 5499 ####[facility] [facility] [place] [address], [place] Glucose [Mass/Vol] 117 mg/dL High 70-100 [facility] Comment on above: Performed By: #### 8 5499 ####[facility] [place] [address], [place] Glucose [Mass/Vol] 175 mg/dL High 70-100 [facility] Comment on above: Performed By: #### 8 5499 ####[facility] [place] [address], [place] Glucose [Mass/Vol] 107 mg/dL High 70-100 [facility] Comment on above: Performed By: #### 8 5499 ####[facility] [place] [address], [place] BASIC METABOLIC PANELon Calcium [Mass/Vol] 8.4 mg/dL Low 8.6-10.3 [facility] Comment on above: Order Comment: No: D o not add to previous draw Performed By: #### 0 0071, 04864, 18355 ####[facility] [place] [address], [place] Chloride [Moles/Vol] 99 mmol/L Normal 98-107 [facility] Comment on above: Order Comment: No: D o not add to previous draw Performed By: #### 0 0071, , 02765 ####[facility] [place] [address], [facility] CO2 [Moles/Vol] 29 mmol/L Normal 21-31 [facility] Comment on above: Order Comment: No: D o not add to previous draw Performed By: #### 0 0071, , 12449 ####[facility] [facility] [place] [address], [facility] Creatinine [Mass/Vol] 1.78 mg/dL High 0.70-1.30 [facility] Comment on above: Order Comment: No: D o not add to previous draw Performed By: #### 0 0071, , 42585 ####[facility] [facility] eGFR- 45 ml/min/1.73sq m Abnormal >60 [facility] Comment on above: Order Comment: No: D o not add to previous draw Result Comment: Calc ulation may not be valid for patients over 70 years Performed By: #### 0 007, , 70610 ####[facility] [facility] eGFR- non- 37 ml/min/1.73sq m Abnormal >60 [facility] Comment on above: Order Comment: No: D o not add to previous draw Result Comment: Calc ulation may not be valid for patients over 70 years Performed By: #### 0 0071, , 54935 ####[facility] [place] [address], [facility] Glucose [Mass/Vol] 96 mg/dL Normal 70-100 [facility] Comment on above: Order Comment: No: D o not add to previous draw Performed By: #### 0 0071, 69005, 45128 ####[facility] [place] [address], [facility] Potassium [Moles/Vol] 4.7 mmol/L Normal 3.5-5.1 [facility] Comment on above: Order Comment: No: D o not add to previous draw Performed By: #### 0 0071, 81414, 38928 ####[facility] [place] [address], [facility] Sodium [Moles/Vol] 133 mmol/L Low 136-145 [facility] Comment on above: Order Comment: No: D o not add to previous draw Performed By: #### 0 0071, 90515, 74724 ####[facility] [place] [address], [facility] Urea nitrogen [Mass/Vol] 33 mg/dL High 7-25 [facility] Comment on above: Order Comment: No: D o not add to previous draw Performed By: #### 0 0071, 64197, 32113 ####[facility] [facility] C REACTIVE PROTEINon 021 CRP [Mass/Vol] 47.2 mg/L High 0.0-7.0 [facility] Comment on above: Order Comment: Yes: Add to Previous draw if able Performed By: #### 6 1405 ####[facility] [place] [address], [facility] CBC COMPLETE BLOOD COUNTon 1 Erythrocyte distribution width (RBC) [Ratio] 15.5 % High 11.5-15.0 [facility] Comment on above: Order Comment: No: D o not add to previous drawNurse draw Performed By: #### 5 3166, 67337 ####[facility] [place] [address], [facility] Hematocrit (Bld) [Volume fraction] 24.7 % Low 39.0-50.0 [facility] Comment on above: Order Comment: No: D o not add to previous drawNurse draw Performed By: #### 5 6506, 53713 ####[facility] Hemoglobin (Bld) [Mass/Vol] 7.7 g/dL Low 13.0-17.0 [facility] Comment on above: Order Comment: No: D o not add to previous drawNurse draw Performed By: #### 5 6506, 20216 ####[facility] MCH (RBC) [Entitic mass] 28.5 pg Normal 27.0-33.0 [facility] Comment on above: Order Comment: No: D o not add to previous drawNurse draw Performed By: #### 5 6506, 73504 ####[facility] [facility] MCHC (RBC) [Mass/Vol] 31.2 g/dL Low 32.0-35.0 [facility] Comment on above: Order Comment: No: D o not add to previous drawNurse draw Performed By: #### 5 6506, 42452 ####[facility] MCV (RBC) [Entitic vol] 91.5 fL Normal 82.0-98.0 [facility] Comment on above: Order Comment: No: D o not add to previous drawNurse draw Performed By: #### 5 6506, 04563 ####[facility] Nucleated RBC/100 WBC (Bld) [Ratio] 0 % Normal 0-0 [facility] Comment on above: Order Comment: No: D o not add to previous drawNurse draw Performed By: #### 5 6506, 16623 ####[facility] [place] [address], [facility] PLAT CNT 332 10*3/uL Normal 150-400 [facility] Comment on above: Order Comment: No: D o not add to previous drawNurse draw Performed By: #### 5 6506, 88047 ####[facility] [place] [address], [facility] RBC (Bld) [#/Vol] 2.70 10*6/uL Low 4.20-5.70 [facility] Comment on above: Order Comment: No: D o not add to previous drawNurse draw Performed By: #### 5 6506, 50587 ####[facility] [place] [address], [facility] WBC (Bld) [#/Vol] 7.87 10*3/uL Normal 4.00-10.60 [facility] Comment on above: Order Comment: No: D o not add to previous drawNurse draw Performed By: #### 5 6506, 09218 ####[facility] [place] [address], [facility] MAGNESIUM BLOODon 05-27-2021 Magnesium [Mass/Vol] 2.1 mg/dL Normal 1.9-2.7 [facility] Comment on above: Order Comment: No: D o not add to previous draw Performed By: #### 0 0071, 19399, 17090 ####[facility] [place] [address], [facility] POC GLUCOSE LABon 05-27-2021 Glucose [Mass/Vol] 134 mg/dL High 70-100 [facility] Comment on above: Performed By: #### 8 5499 ####[facility] [place] [address], [facility] Glucose [Mass/Vol] 109 mg/dL High 70-100 [facility] Comment on above: Performed By: #### 8 5499 ####[facility] [place] [address], [facility] Glucose [Mass/Vol] 151 mg/dL High 70-100 [facility] Comment on above: Performed By: #### 8 5499 ####[facility] [facility] [place] [address], [facility] Glucose [Mass/Vol] 114 mg/dL High 70-100 [facility] Comment on above: Performed By: #### 8 5499 ####[facility] [place] [address], [facility] PORTABLE CHEST 1 VIEWon PORTABLE CHEST 1 VIEW Normal [facility] Comment on above: Order Comment: evalu ate for Atelectasis RBC'S 1 UNITon 05-27-2021 CROSSMATCH INTERP 1 COMP Normal [facility] Comment on above: Performed By: #### 8 6001 ####[facility]3000 [facility].[address] PRODUCT CODE 1 [id number] Normal [facility] Comment on above: Performed By: #### 8 6001 ####[facility] [place] [address], [facility] PRODUCT STATUS 1 PT Normal [facility] Comment on above: Result Comment: Resu lt changed by IF on 05/27/2021 11:45. The previous value was XM.Result changed by IF on 05/28/2021 00:30. The previous value was IS. Performed By: #### 8 6001 ####[facility] [place] [address], [facility] UNIT ABO 1 O Normal [facility] Comment on above: Performed By: #### 8 6001 ####[facility]3000 [facility] UNIT ID 1 [id number] Normal [facility] Comment on above: Performed By: #### 8 6001 ####[facility] [facility].[address] UNIT RH 1 Negative Normal [facility] Comment on above: Performed By: #### 8 6001 ####[facility] [facility] SEDIMENTATION RATEon 021 SED RATE 48 mm/hr High 0-10 [facility] Comment on above: Performed By: #### 5 6506, 71949 ####[facility] [facility].[address] VANCOMYCIN RANDOMon 05-27-20 21 VANCOMYCIN RAND 12.2 mcg/mL Normal [facility] Comment on above: Performed By: #### 0 0071, 10102, 71803 ####[facility] [facility].[address] BASIC METABOLIC PANELon 10-0 Calcium [Mass/Vol] 8.2 mg/dL Low 8.6-10.3 [facility] Comment on above: Order Comment: No: D o not add to previous draw Performed By: #### 1 0070, 25460 ####[facility] [facility].[address] Chloride [Moles/Vol] 98 mmol/L Normal 98-107 [facility] Comment on above: Order Comment: No: D o not add to previous draw Performed By: #### 1 0070, 56613 ####[facility] [place] [address], [facility] CO2 [Moles/Vol] 30 mmol/L Normal 21-31 [facility] Comment on above: Order Comment: No: D o not add to previous draw Performed By: #### 1 0070, 07139 ####[facility] [place] [address], [facility] Creatinine [Mass/Vol] 1.78 mg/dL High 0.70-1.30 [facility] Comment on above: Order Comment: No: D o not add to previous draw Performed By: #### 1 69, 83723 ####[facility] [place] [address], [facility] eGFR- 45 ml/min/1.73sq m Abnormal >60 [facility] Comment on above: Order Comment: No: D o not add to previous draw Result Comment: Calc ulation may not be valid for patients over 70 years Performed By: #### 1 69, 25416 ####[facility] [place] [address], [facility] eGFR- non- 37 ml/min/1.73sq m Abnormal >60 [facility] Comment on above: Order Comment: No: D o not add to previous draw Result Comment: Calc ulation may not be valid for patients over 70 years Performed By: #### 1 69, 78468 ####[facility] [place] [address], [place] Glucose [Mass/Vol] 97 mg/dL Normal 70-100 [facility] Comment on above: Order Comment: No: D o not add to previous draw Performed By: #### 1 69, 85553 ####[facility] [place] [address], [place] Potassium [Moles/Vol] 4.8 mmol/L Normal 3.5-5.1 [facility] Comment on above: Order Comment: No: D o not add to previous draw Performed By: #### 1 69, 89629 ####[facility] [place] [address], [place] Sodium [Moles/Vol] 131 mmol/L Low 136-145 [facility] Comment on above: Order Comment: No: D o not add to previous draw Performed By: #### 1 0, 88922 ####[facility]3000 [facility].[address] Urea nitrogen [Mass/Vol] 35 mg/dL High 7-25 [facility] Comment on above: Order Comment: No: D o not add to previous draw Performed By: #### 1 0, 69874 ####[facility] [facility].[address] CBC COMPLETE BLOOD COUNTon - Erythrocyte distribution width (RBC) [Ratio] 15.4 % High 11.5-15.0 [facility] Comment on above: Order Comment: No: D o not add to previous drawNurse draw Performed By: #### 5 0608 ####[facility] [facility].[address] Hematocrit (Bld) [Volume fraction] 24.3 % Low 39.0-50.0 [facility] Comment on above: Order Comment: No: D o not add to previous drawNurse draw Performed By: #### 5 0608 ####[facility] [facility].[address] Hemoglobin (Bld) [Mass/Vol] 7.9 g/dL Low 13.0-17.0 [facility] Comment on above: Order Comment: No: D o not add to previous drawNurse draw Performed By: #### 5 0608 ####[facility] [place] [address], [facility] MCH (RBC) [Entitic mass] 28.6 pg Normal 27.0-33.0 [facility] Comment on above: Order Comment: No: D o not add to previous drawNurse draw Performed By: #### 5 0608 ####[facility] MCHC (RBC) [Mass/Vol] 32.5 g/dL Normal 32.0-35.0 [facility] Comment on above: Order Comment: No: D o not add to previous drawNurse draw Performed By: #### 5 0608 ####[facility] [place] [address], [facility] MCV (RBC) [Entitic vol] 88.0 fL Normal 82.0-98.0 [facility] Comment on above: Order Comment: No: D o not add to previous drawNurse draw Performed By: #### 5 0608 ####[place] [address] Nucleated RBC/100 WBC (Bld) [Ratio] 0 % Normal 0-0 [facility] Comment on above: Order Comment: No: D o not add to previous drawNurse draw Performed By: #### 5 0608 ####[facility] PLAT CNT 320 10*3/uL Normal 150-400 [facility] Comment on above: Order Comment: No: D o not add to previous drawNurse draw Performed By: #### 5 0608 ####[place] [address] [place] [address], [facility] RBC (Bld) [#/Vol] 2.76 10*6/uL Low 4.20-5.70 [facility] Comment on above: Order Comment: No: D o not add to previous drawNurse draw Performed By: #### 5 0608 ####[facility] [place] [address], [facility] WBC (Bld) [#/Vol] 7.52 10*3/uL Normal 4.00-10.60 [facility] Comment on above: Order Comment: No: D o not add to previous drawNurse draw Performed By: #### 5 0608 ####[facility] [place] [address], [place] MAGNESIUM BLOODon 05-26-2021 Magnesium [Mass/Vol] 2.1 mg/dL Normal 1.9-2.7 [facility] Comment on above: Order Comment: No: D o not add to previous draw Performed By: #### 1 0070, 38392 ####[facility] [place] [address], [place] POC GLUCOSE LABon 05-26-2021 Glucose [Mass/Vol] 138 mg/dL High 70-100 [facility] Comment on above: Performed By: #### 8 5499 ####[facility] [facility] [place] [address], [place] Glucose [Mass/Vol] 119 mg/dL High 70-100 [facility] Comment on above: Performed By: #### 8 5499 ####[facility] [facility] [address], [place] Glucose [Mass/Vol] 118 mg/dL High 70-100 [facility] Comment on above: Performed By: #### 8 5499 ####[facility] [facility] [address], [facility] PORTABLE CHEST 1 VIEWon PORTABLE CHEST 1 VIEW Normal [facility] Comment on above: Order Comment: evalu ate for Atelectasis BASIC METABOLIC PANELon Calcium [Mass/Vol] 8.1 mg/dL Low 8.6-10.3 [facility] Comment on above: Order Comment: No: D o not add to previous draw Performed By: #### 3 0953, 72295, 21582 ####[facility] [place] [address], [place] Chloride [Moles/Vol] 95 mmol/L Low 98-107 [facility] Comment on above: Order Comment: No: D o not add to previous draw Performed By: #### 3 0953, 34423, 84799 ####[facility] [place] [address], [facility] CO2 [Moles/Vol] 27 mmol/L Normal 21-31 [facility] Comment on above: Order Comment: No: D o not add to previous draw Performed By: #### 3 0953, 45071, 93023 ####[facility] [place] [address], [facility] Creatinine [Mass/Vol] 2.13 mg/dL High 0.70-1.30 [facility] Comment on above: Order Comment: No: D o not add to previous draw Performed By: #### 3 0953, 28039, 19005 ####[facility]3000 [facility].[address] eGFR- 37 ml/min/1.73sq m Abnormal >60 [facility] Comment on above: Order Comment: No: D o not add to previous draw Result Comment: Calc ulation may not be valid for patients over 70 years Performed By: #### 3 0953, 12377, 58085 ####[facility]3000 [facility].[address] eGFR- non- 30 ml/min/1.73sq m Abnormal >60 [facility] Comment on above: Order Comment: No: D o not add to previous draw Result Comment: Calc ulation may not be valid for patients over 70 years Performed By: #### 3 0953, 97517, 70674 ####[facility] [place] [address], [facility] Glucose [Mass/Vol] 122 mg/dL High 70-100 [facility] Comment on above: Order Comment: No: D o not add to previous draw Performed By: #### 3 0953, 14960, 24253 ####[facility] [place] [address], [facility] Potassium [Moles/Vol] 4.8 mmol/L Normal 3.5-5.1 [facility] Comment on above: Order Comment: No: D o not add to previous draw Performed By: #### 3 0953, 88412, 19852 ####[facility] [place] [address], [facility] Sodium [Moles/Vol] 128 mmol/L Low 136-145 [facility] Comment on above: Order Comment: No: D o not add to previous draw Performed By: #### 3 0953, 20108, 79188 ####[facility] [place] [address], [facility] Urea nitrogen [Mass/Vol] 35 mg/dL High 7-25 [facility] Comment on above: Order Comment: No: D o not add to previous draw Performed By: #### 3 0953, 88697, 79131 ####[facility] CBC COMPLETE BLOOD COUNTon Erythrocyte distribution width (RBC) [Ratio] 15.8 % High 11.5-15.0 [facility] Comment on above: Order Comment: No: D o not add to previous draw Performed By: #### 5 0608 ####[facility] [place] [address], [facility] Hematocrit (Bld) [Volume fraction] 22.3 % Low 39.0-50.0 [facility] Comment on above: Order Comment: No: D o not add to previous draw Performed By: #### 5 0608 ####[facility] [place] [address], [facility] Hemoglobin (Bld) [Mass/Vol] 7.3 g/dL Low 13.0-17.0 [facility] Comment on above: Order Comment: No: D o not add to previous draw Performed By: #### 5 0608 ####[facility] MCH (RBC) [Entitic mass] 28.7 pg Normal 27.0-33.0 [facility] Comment on above: Order Comment: No: D o not add to previous draw Performed By: #### 5 0608 ####[facility] MCHC (RBC) [Mass/Vol] 32.7 g/dL Normal 32.0-35.0 [facility] Comment on above: Order Comment: No: D o not add to previous draw Performed By: #### 5 0608 ####[facility] MCV (RBC) [Entitic vol] 87.8 fL Normal 82.0-98.0 [facility] Comment on above: Order Comment: No: D o not add to previous draw Performed By: #### 5 0608 ####[place] [address] Nucleated RBC/100 WBC (Bld) [Ratio] 0 % Normal 0-0 [facility] Comment on above: Order Comment: No: D o not add to previous draw Performed By: #### 5 0608 ####[facility] PLAT CNT 292 10*3/uL Normal 150-400 [facility] Comment on above: Order Comment: No: D o not add to previous draw Performed By: #### 5 0608 ####[address] RBC (Bld) [#/Vol] 2.54 10*6/uL Low 4.20-5.70 [facility] Comment on above: Order Comment: No: D o not add to previous draw Performed By: #### 5 0608 ####[facility] [place] [address], [facility] WBC (Bld) [#/Vol] 8.90 10*3/uL Normal 4.00-10.60 [facility] Comment on above: Order Comment: No: D o not add to previous draw Performed By: #### 5 0608 ####[facility] [id number], [facility] HEMATOCRITon 05-25-2021 Hematocrit (Bld) [Volume fraction] 25.1 % Low 39.0-50.0 [facility] Comment on above: Order Comment: No: D o not add to previous draw Performed By: #### 9 2088, 83074 ####[facility] [place] [address], [facility] HEMOGLOBINon 05-25-2021 Hemoglobin (Bld) [Mass/Vol] 8.4 g/dL Low 13.0-17.0 [facility] Comment on above: Order Comment: No: D o not add to previous draw Performed By: #### 9 2088, 56890 ####[facility] [place] [address], [facility] MAGNESIUM BLOODon 05-25-2021 Magnesium [Mass/Vol] 2.0 mg/dL Normal 1.9-2.7 [facility] Comment on above: Order Comment: No: D o not add to previous draw Performed By: #### 3 0953, 84689, 07060 ####[facility] [place] [address], [facility] POC GLUCOSE LABon 05-25-2021 Glucose [Mass/Vol] 136 mg/dL High 70-100 [facility] Comment on above: Performed By: #### 8 5499 ####[facility] [id number], [facility] Glucose [Mass/Vol] 115 mg/dL High 70-100 [facility] Comment on above: Performed By: #### 8 5499 ####[facility] [place] [address], [facility] Glucose [Mass/Vol] 72 mg/dL Normal 70-100 [facility] Comment on above: Performed By: #### 8 5499 ####[facility] [place] [address], [facility] Glucose [Mass/Vol] 154 mg/dL High 70-100 [facility] Comment on above: Performed By: #### 8 5499 ####[facility]3000 [facility].[address] PORTABLE CHEST 1 VIEWon PORTABLE CHEST 1 VIEW Normal [facility] Comment on above: Order Comment: Evalu ate for Effusion RBC'S 2 UNITSon 05-25-2021 CROSSMATCH INTERP 1 COMP Normal [facility] Comment on above: Performed By: #### 8 6002 ####[facility] [place] [address], [facility] CROSSMATCH INTERP 2 COMP Normal [facility] Comment on above: Performed By: #### 8 6002 ####[facility] [place] [address], [facility] PRODUCT CODE 1 [id number] Normal [facility] Comment on above: Performed By: #### 8 6002 ####[facility] [place] [address], [facility] PRODUCT CODE 2 E0336 Normal [facility] Comment on above: Performed By: #### 8 6002 ####[facility] [place] [address].[place] [address], [facility] PRODUCT STATUS 1 PT Normal [facility] Comment on above: Result Comment: Resu lt changed by IF on 05/25/2021 13:50. The previous value was XM.Result changed by IF on 05/26/2021 00:30. The previous value was IS. Performed By: #### 8 6002 ####[facility]3000 [facility].[address] PRODUCT STATUS 2 PT Normal [facility] Comment on above: Result Comment: Resu lt changed by IF on 05/25/2021 09:50. The previous value was XM.Result changed by IF on 05/26/2021 00:30. The previous value was IS. Performed By: #### 8 6002 ####[facility] UNIT ABO 1 O Normal [facility] Comment on above: Performed By: #### 8 6002 ####[facility]3000 [facility].[address] UNIT ABO 2 O Normal [facility] Comment on above: Performed By: #### 8 6002 ####[facility]3000 [facility].[address] UNIT ID 1 [id number] Normal [facility] Comment on above: Performed By: #### 8 6002 ####[facility]3000 [facility].[address] UNIT ID 2 [id number] Normal [facility] Comment on above: Performed By: #### 8 6002 ####[facility]3000 [facility].[address] UNIT RH 1 Positive Normal [facility] Comment on above: Performed By: #### 8 6002 ####[facility] [place] [address].[place] [address], [place] UNIT RH 2 Positive Normal [facility] Comment on above: Performed By: #### 8 6002 ####[facility] [place] [address], [facility] VANCOMYCIN TIMEDon VANCOMYCIN TIMED 24.3 mcg/mL Normal [facility] Comment on above: Performed By: #### 3 0953, 16120, 69231 ####[facility] [facility] BASIC METABOLIC PANELon 10 Calcium [Mass/Vol] 7.8 mg/dL Low 8.6-10.3 [facility] Comment on above: Order Comment: No: D o not add to previous draw Performed By: #### 0 0071, 64241, 57303, 99103 ####[facility] [place] [address], [facility] FACILITY Chloride [Moles/Vol] 97 mmol/L Low 98-107 [facility] Comment on above: Order Comment: No: D o not add to previous draw Performed By: #### 0 0071, 98209, 46394, 20949 ####[facility] [place] [address], [facility] CO2 [Moles/Vol] 30 mmol/L Normal 21-31 [facility] Comment on above: Order Comment: No: D o not add to previous draw Performed By: #### 0 0071, 16966, 91750, 05009 ####[facility] [place] [address], [facility] Creatinine [Mass/Vol] 1.70 mg/dL High 0.70-1.30 [facility] Comment on above: Order Comment: No: D o not add to previous draw Performed By: #### 0 0071, 54519, 90442, 08984 ####[facility] [place] [address], [place] eGFR- 48 ml/min/1.73sq m Abnormal >60 [facility] Comment on above: Order Comment: No: D o not add to previous draw Result Comment: Calc ulation may not be valid for patients over 70 years Performed By: #### 0 0071, 88996, 78041, 90126 ####[facility] [place] [address], [facility] eGFR- non- 39 ml/min/1.73sq m Abnormal >60 [facility] Comment on above: Order Comment: No: D o not add to previous draw Result Comment: Calc ulation may not be valid for patients over 70 years Performed By: #### 0 0071, 77293, 13720, 14310 ####[facility] [place] [address], [place] Glucose [Mass/Vol] 132 mg/dL High 70-100 [facility] Comment on above: Order Comment: No: D o not add to previous draw Performed By: #### 0 0071, 92026, 22801, 81314 ####[facility] [place] [address], [place] Potassium [Moles/Vol] 5.2 mmol/L High 3.5-5.1 [facility] Comment on above: Order Comment: No: D o not add to previous draw Performed By: #### 0 0071, 10544, 77133, 87825 ####[facility] [place] [address], [place] Sodium [Moles/Vol] 131 mmol/L Low 136-145 [facility] Comment on above: Order Comment: No: D o not add to previous draw Performed By: #### 0 0071, 05035, 51436, 94424 ####[facility] [place] [address], [place] Urea nitrogen [Mass/Vol] 27 mg/dL High 7-25 [facility] Comment on above: Order Comment: No: D o not add to previous draw Performed By: #### 0 0071, 89390, 14906, 42097 ####[facility] [facility].[address] CBC COMPLETE BLOOD COUNTon Erythrocyte distribution width (RBC) [Ratio] 14.5 % Normal 11.5-15.0 [facility] Comment on above: Order Comment: No: D o not add to previous draw Performed By: #### 5 0608 ####[facility] [facility] Hematocrit (Bld) [Volume fraction] 23.1 % Low 39.0-50.0 [facility] Comment on above: Order Comment: No: D o not add to previous draw Performed By: #### 5 0608 ####[facility] [facility] Hemoglobin (Bld) [Mass/Vol] 7.4 g/dL Low 13.0-17.0 [facility] Comment on above: Order Comment: No: D o not add to previous draw Performed By: #### 5 0608 ####[facility] [facility] [place] [address], [facility] MCH (RBC) [Entitic mass] 28.9 pg Normal 27.0-33.0 [facility] Comment on above: Order Comment: No: D o not add to previous draw Performed By: #### 5 0608 ####[facility] [facility] [place] [address], [facility] MCHC (RBC) [Mass/Vol] 32.0 g/dL Normal 32.0-35.0 [facility] Comment on above: Order Comment: No: D o not add to previous draw Performed By: #### 5 0608 ####[facility] [place] [address], [facility] MCV (RBC) [Entitic vol] 90.2 fL Normal 82.0-98.0 [facility] Comment on above: Order Comment: No: D o not add to previous draw Performed By: #### 5 0608 ####[facility] [place] [address], [facility] Nucleated RBC/100 WBC (Bld) [Ratio] 0 % Normal 0-0 [facility] Comment on above: Order Comment: No: D o not add to previous draw Performed By: #### 5 0608 ####[facility] [place] [address], [facility] PLAT CNT 312 10*3/uL Normal 150-400 [facility] Comment on above: Order Comment: No: D o not add to previous draw Performed By: #### 5 0608 ####[facility] [place] [address], [facility] RBC (Bld) [#/Vol] 2.56 10*6/uL Low 4.20-5.70 [facility] Comment on above: Order Comment: No: D o not add to previous draw Performed By: #### 5 0608 ####[facility] [facility] [place] [address], [facility] WBC (Bld) [#/Vol] 10.23 10*3/uL Normal 4.00-10.60 [facility] Comment on above: Order Comment: No: D o not add to previous draw Performed By: #### 5 0608 ####[facility] [facility] [place] [address], [facility] MAGNESIUM BLOODon 05-24-2021 Magnesium [Mass/Vol] 1.8 mg/dL Low 1.9-2.7 [facility] Comment on above: Order Comment: No: D o not add to previous draw Performed By: #### 0 0071, 88289, 52444, 43578 ####[facility] [place] [address], [place] PHOSPHORUS BLOODon Phosphate [Mass/Vol] 5.0 mg/dL Normal 2.5-5.0 [facility] Comment on above: Order Comment: No: D o not add to previous draw Performed By: #### 0 0071, 23694, 36525, 60413 ####[facility] [place] [address], [place] POC GLUCOSE LABon 05-24-2021 Glucose [Mass/Vol] 156 mg/dL High 70-100 [facility] Comment on above: Performed By: #### 8 5499 ####[facility] [place] [address], [place] Glucose [Mass/Vol] 129 mg/dL High 70-100 [facility] Comment on above: Performed By: #### 8 5499 ####[facility] [place] [address], [place] Glucose [Mass/Vol] 188 mg/dL High 70-100 [facility] Comment on above: Performed By: #### 8 5499 ####[facility] [place] [address], [place] Glucose [Mass/Vol] 141 mg/dL High 70-100 [facility] Comment on above: Performed By: #### 8 5499 ####[facility] [place] [address], [place] RBC'S 1 UNITon 05-24-2021 CROSSMATCH INTERP 1 COMP Normal [facility] Comment on above: Performed By: #### 8 6001 ####[facility] [place] [address], [place] PRODUCT CODE 1 [id number] Normal [facility] Comment on above: Performed By: #### 8 6001 ####[facility] [facility].[address] PRODUCT STATUS 1 PT Normal The [facility] Comment on above: Result Comment: Resu lt changed by IF on 05/24/2021 11:33. The previous value was XM.Result changed by IF on 05/25/2021 00:30. The previous value was IS. Performed By: #### 8 6001 ####[facility] [facility].[address] UNIT ABO 1 O Normal [facility] Comment on above: Performed By: #### 8 6001 ####[facility] [facility].[address] UNIT ID 1 [id number] Normal [facility] Comment on above: Performed By: #### 8 6001 ####[facility] [facility].[address] UNIT RH 1 Positive Normal [facility] Comment on above: Performed By: #### 8 6001 ####[place] [address] [address] TYPE AND SCREENon 05-24-2021 ABO INTERPRETATION O Normal [facility] Comment on above: Performed By: #### 6 2586 ####[facility] [facility].[address] RH INTERPRETATION Positive Normal [facility] Comment on above: Performed By: #### 6 2586 ####[facility] [facility].[address] VANCOMYCIN TIMEDon 1 VANCOMYCIN TIMED 42.1 mcg/mL Normal [facility] Comment on above: Performed By: #### 0 0071, 54186, 84577, 47576 ####[facility] BASIC METABOLIC PANELon 09-3 -2020 Calcium [Mass/Vol] 8.7 mg/dL Normal 8.6-10.3 [facility] Comment on above: Order Comment: No: D o not add to previous draw Performed By: #### 4 1000, 52558, 00128 ####[facility] [place] [address], [facility] Chloride [Moles/Vol] 97 mmol/L Low 98-107 [facility] Comment on above: Order Comment: No: D o not add to previous draw Performed By: #### 4 1000, 75580, 86965 ####[facility] [place] [address], [facility] CO2 [Moles/Vol] 32 mmol/L High 21-31 [facility] Comment on above: Order Comment: No: D o not add to previous draw Performed By: #### 4 1000, 11528, 03768 ####[facility] [facility].[address] Creatinine [Mass/Vol] 1.31 mg/dL High 0.70-1.30 [facility] Comment on above: Order Comment: No: D o not add to previous draw Performed By: #### 4 1000, 63202, 94643 ####[facility] [facility] eGFR- non- 53 ml/min/1.73sq m Abnormal >60 [facility] Comment on above: Order Comment: No: D o not add to previous draw Result Comment: Calc ulation may not be valid for patients over 70 years Performed By: #### 4 1000, 22511, 05122 ####[facility] [place] [address], [facility] GFR/1.73 sq M.predicted among blacks MDRD (S/P/Bld) [Vol rate/Area] mL/min/{1.73_m2} Normal >60 [facility] Comment on above: Order Comment: No: D o not add to previous draw Result Comment: Calc ulation may not be valid for patients over 70 years Performed By: #### 4 1000, 21581, 70247 ####[facility] [place] [address], [facility] Glucose [Mass/Vol] 105 mg/dL High 70-100 [facility] Comment on above: Order Comment: No: D o not add to previous draw Performed By: #### 4 1000, 99935, 97467 ####[facility] [place] [address], [facility] Potassium [Moles/Vol] 4.0 mmol/L Normal 3.5-5.1 [facility] Comment on above: Order Comment: No: D o not add to previous draw Performed By: #### 4 999, 17865, 15123 ####[facility] [place] [address], [facility] Sodium [Moles/Vol] 133 mmol/L Low 136-145 [facility] Comment on above: Order Comment: No: D o not add to previous draw Performed By: #### 4 999, 31497, 71950 ####[facility] [place] [address], [facility] Urea nitrogen [Mass/Vol] 24 mg/dL Normal 7-25 [facility] Comment on above: Order Comment: No: D o not add to previous draw Performed By: #### 4 1000, 74985, 98150 ####[facility] [facility].[place] [id number], [facility] CBC COMPLETE BLOOD COUNTon 0 05-23-2021 Erythrocyte distribution width (RBC) [Ratio] 14.3 % Normal 11.5-15.0 [facility] Comment on above: Order Comment: No: D o not add to previous draw Performed By: #### 5 0608 ####[facility] Hematocrit (Bld) [Volume fraction] 29.4 % Low 39.0-50.0 [facility] Comment on above: Order Comment: No: D o not add to previous draw Performed By: #### 5 0608 ####[facility] Hemoglobin (Bld) [Mass/Vol] 9.4 g/dL Low 13.0-17.0 [facility] Comment on above: Order Comment: No: D o not add to previous draw Performed By: #### 5 0608 ####[address] MCH (RBC) [Entitic mass] 28.5 pg Normal 27.0-33.0 [facility] Comment on above: Order Comment: No: D o not add to previous draw Performed By: #### 5 0608 ####[facility] [place] [address] MCHC (RBC) [Mass/Vol] 32.0 g/dL Normal 32.0-35.0 [facility] Comment on above: Order Comment: No: D o not add to previous draw Performed By: #### 5 0608 ####[facility] [place] [address] MCV (RBC) [Entitic vol] 89.1 fL Normal 82.0-98.0 [facility] Comment on above: Order Comment: No: D o not add to previous draw Performed By: #### 5 0608 ####[address] Nucleated RBC/100 WBC (Bld) [Ratio] 0 % Normal 0-0 [facility] Comment on above: Order Comment: No: D o not add to previous draw Performed By: #### 5 0608 ####[facility] [place] [address], [facility] PLAT CNT 342 10*3/uL Normal 150-400 [facility] Comment on above: Order Comment: No: D o not add to previous draw Performed By: #### 5 0608 ####[facility] [place] [address], [facility] RBC (Bld) [#/Vol] 3.30 10*6/uL Low 4.20-5.70 [facility] Comment on above: Order Comment: No: D o not add to previous draw Performed By: #### 5 0608 ####[facility] [place] [address], [facility] WBC (Bld) [#/Vol] 7.22 10*3/uL Normal 4.00-10.60 [facility] Comment on above: Order Comment: No: D o not add to previous draw Performed By: #### 5 0608 ####[facility] [facility].[address] MAGNESIUM BLOODon 05-23-2021 Magnesium [Mass/Vol] 1.9 mg/dL Normal 1.9-2.7 [facility] Comment on above: Order Comment: No: D o not add to previous draw Performed By: #### 4 999, 14779, 25919 ####[facility] [place] [address], [facility] PHOSPHORUS BLOODon Phosphate [Mass/Vol] 3.4 mg/dL Normal 2.5-5.0 [facility] Comment on above: Order Comment: No: D o not add to previous draw Performed By: #### 4 1000, 15324, 17741 ####[facility] [place] [address], [facility] POC GLUCOSE LABon 05-23-2021 Glucose [Mass/Vol] 141 mg/dL High 70-100 [facility] Comment on above: Performed By: #### 8 5499 ####[facility] [place] [address], [facility] Glucose [Mass/Vol] 147 mg/dL High 70-100 [facility] Comment on above: Performed By: #### 8 5499 ####[facility] [place] [address], [place] Glucose [Mass/Vol] 138 mg/dL High 70-100 [facility] Comment on above: Performed By: #### 8 5499 ####[facility] [place] [address], [place] Glucose [Mass/Vol] 112 mg/dL High 70-100 [facility] Comment on above: Performed By: #### 8 5499 ####[facility] [place] [address], [facility] Glucose [Mass/Vol] 121 mg/dL High 70-100 [facility] Comment on above: Performed By: #### 8 5499 ####[facility] [place] [address], [facility] POC SARS COV2 ANTIGEN NEGATI VEon 05-23-2021 POC SARS COV2 ANTIGEN NEG Negative Normal NEGATIVE [facility] Comment on above: Result Comment: Nega [...] of clinicalsigns and symptoms consistent with COVID-19.The [employer] COVID-19 Ag Card is a lateral flow immunoassay intended forthe qualitative detection of nucleocapsid protein antigen [id number] in direct nasal swabs from individuals within [...] Certificate ofAccreditation. Performed By: #### 3 1977 ####[facility] [place] [address], [facility] PORTABLE CHEST 1 VIEWon 04-26 PORTABLE CHEST 1 VIEW Normal [facility] Comment on above: Order Comment: evalu ate for Atelectasis VANCOMYCIN RANDOMon 05-23-20 VANCOMYCIN RAND 19.6 mcg/mL Normal [facility] Comment on above: Order Comment: No: D o not add to previous draw Performed By: #### 9 4980 ####[facility] [place] [address], [facility] BASIC METABOLIC PANELon 04-25 Calcium [Mass/Vol] 8.6 mg/dL Normal 8.6-10.3 [facility] Comment on above: Order Comment: No: D o not add to previous draw Performed By: #### 0 0071, 92282, 76222 ####[facility] [place] [address], [facility] Chloride [Moles/Vol] 98 mmol/L Normal 98-107 [facility] Comment on above: Order Comment: No: D o not add to previous draw Performed By: #### 0 0071, 77157, 71160 ####[facility] [place] [address], [facility] CO2 [Moles/Vol] 33 mmol/L High 21-31 [facility] Comment on above: Order Comment: No: D o not add to previous draw Performed By: #### 0 0071, 52784, 80934 ####[facility] [place] [address], [facility] Creatinine [Mass/Vol] 1.21 mg/dL Normal 0.70-1.30 [facility] Comment on above: Order Comment: No: D o not add to previous draw Performed By: #### 0 0071, 27965, 90618 ####[facility] eGFR- non- 58 ml/min/1.73sq m Abnormal >60 [facility] Comment on above: Order Comment: No: D o not add to previous draw Result Comment: Calc ulation may not be valid for patients over 70 years Performed By: #### 0 0071, , 07304 ####[facility] [place] [address], [facility] GFR/1.73 sq M.predicted among blacks MDRD (S/P/Bld) [Vol rate/Area] mL/min/{1.73_m2} Normal >60 [facility] Comment on above: Order Comment: No: D o not add to previous draw Result Comment: Calc ulation may not be valid for patients over 70 years Performed By: #### 0 0071, , 97865 ####[facility] [place] [address], [facility] Glucose [Mass/Vol] 115 mg/dL High 70-100 [facility] Comment on above: Order Comment: No: D o not add to previous draw Performed By: #### 0 0071, 72895, 28366 ####[facility] [place] [address], [facility] Potassium [Moles/Vol] 3.9 mmol/L Normal 3.5-5.1 [facility] Comment on above: Order Comment: No: D o not add to previous draw Performed By: #### 0 0071, 72580, 22184 ####[facility] [facility].[address] Sodium [Moles/Vol] 135 mmol/L Low 136-145 [facility] Comment on above: Order Comment: No: D o not add to previous draw Performed By: #### 0 0071, 81874, 98779 ####[facility] [facility].[address] Urea nitrogen [Mass/Vol] 22 mg/dL Normal 7-25 [facility] Comment on above: Order Comment: No: D o not add to previous draw Performed By: #### 0 0071, 55517, 00888 ####[facility] [facility].[address] CBC COMPLETE BLOOD COUNTon 0 05-22-2021 Erythrocyte distribution width (RBC) [Ratio] 14.3 % Normal 11.5-15.0 [facility] Comment on above: Order Comment: No: D o not add to previous draw Performed By: #### 5 0608 ####[place] [address] [facility].[address] Hematocrit (Bld) [Volume fraction] 24.7 % Low 39.0-50.0 [facility] Comment on above: Order Comment: No: D o not add to previous draw Performed By: #### 5 0608 ####[facility] [facility].[address] Hemoglobin (Bld) [Mass/Vol] 7.6 g/dL Low 13.0-17.0 [facility] Comment on above: Order Comment: No: D o not add to previous draw Performed By: #### 5 0608 ####[address] MCH (RBC) [Entitic mass] 28.3 pg Normal 27.0-33.0 [facility] Comment on above: Order Comment: No: D o not add to previous draw Performed By: #### 5 0608 ####[facility] [facility].[address] MCHC (RBC) [Mass/Vol] 30.8 g/dL Low 32.0-35.0 [facility] Comment on above: Order Comment: No: D o not add to previous draw Performed By: #### 5 0608 ####[facility] MCV (RBC) [Entitic vol] 91.8 fL Normal 82.0-98.0 [facility] Comment on above: Order Comment: No: D o not add to previous draw Performed By: #### 5 0608 ####[place] [address] [address] Nucleated RBC/100 WBC (Bld) [Ratio] 0 % Normal 0-0 [facility] Comment on above: Order Comment: No: D o not add to previous draw Performed By: #### 5 0608 ####[facility] PLAT CNT 313 10*3/uL Normal 150-400 [facility] Comment on above: Order Comment: No: D o not add to previous draw Performed By: #### 5 0608 ####[address] RBC (Bld) [#/Vol] 2.69 10*6/uL Low 4.20-5.70 [facility] Comment on above: Order Comment: No: D o not add to previous draw Performed By: #### 5 0608 ####[facility] [place] [address] WBC (Bld) [#/Vol] 7.75 10*3/uL Normal 4.00-10.60 [facility] Comment on above: Order Comment: No: D o not add to previous draw Performed By: #### 5 0608 ####[facility] [place] [address], [facility] MAGNESIUM BLOODon 05-22-2021 Magnesium [Mass/Vol] 1.9 mg/dL Normal 1.9-2.7 [facility] Comment on above: Order Comment: No: D o not add to previous draw Performed By: #### 0 0071, 91834, 47478 ####[facility] [place] [address], [facility] Operative Reporton Operative Report Normal [facility] POC GLUCOSE LABon 05-22-2021 Glucose [Mass/Vol] 126 mg/dL High 70-100 [facility] Comment on above: Performed By: #### 8 5499 ####[facility] [place] [address], [facility] Glucose [Mass/Vol] 136 mg/dL High 70-100 [facility] Comment on above: Performed By: #### 8 5499 ####[facility] [place] [address], [facility] Glucose [Mass/Vol] 156 mg/dL High 70-100 [facility] Comment on above: Performed By: #### 8 5499 ####[facility] [place] [address], [facility] PORTABLE CHEST 1 VIEWon 04-25 PORTABLE CHEST 1 VIEW Normal [facility] Comment on above: Order Comment: Evalu ate for Atelectasis, common RBC'S 1 UNITon 05-22-2021 CROSSMATCH INTERP 1 COMP Normal [facility] Comment on above: Performed By: #### 8 6001 ####[facility] [place] [address], [facility] PRODUCT CODE 1 E0336 Normal The [facility] Comment on above: Performed By: #### 8 6001 ####[facility] PRODUCT STATUS 1 PT Normal [facility] Comment on above: Result Comment: Resu lt changed by IF on 05/22/2021 13:33. The previous value was XM.Result changed by IF on 05/23/2021 00:30. The previous value was IS. Performed By: #### 8 6001 ####[facility] [place] [address], [facility] UNIT ABO 1 O Normal [facility] Comment on above: Performed By: #### 8 6001 ####[facility] [facility] UNIT ID 1 [id number] Normal The [facility] Comment on above: Performed By: #### 8 6001 ####[facility] [place] [address], [facility] UNIT RH 1 Positive Normal [facility] Comment on above: Performed By: #### 8 6001 ####[facility] [place] [address], [facility] RBC'S 3 UNITSon 05-22-2021 CROSSMATCH INTERP [address] [facility] Comment on above: Order Comment: Hemog lobin < 9 gm/dl with known cardiac or cerebrovascular disease Performed By: #### 8 6003 ####[facility] [place] [address], [facility] CROSSMATCH INTERP [address] [facility] Comment on above: Order Comment: Hemog lobin < 9 gm/dl with known cardiac or cerebrovascular disease Performed By: #### 8 6003 ####[facility] CROSSMATCH INTERP 3 COMP Normal The [facility] Comment on above: Order Comment: Hemog lobin < 9 gm/dl with known cardiac or cerebrovascular disease Performed By: #### 8 6003 ####[facility] PRODUCT CODE 1 E0336 Normal [facility] Comment on above: Order Comment: Hemog lobin < 9 gm/dl with known cardiac or cerebrovascular disease Performed By: #### 8 6003 ####[facility] PRODUCT CODE 2 [id number] Normal [facility] Comment on above: Order Comment: Hemog lobin < 9 gm/dl with known cardiac or cerebrovascular disease Performed By: #### 8 6003 ####[facility] PRODUCT CODE 3 E0336 Normal [facility] Comment on above: Order Comment: Hemog lobin < 9 gm/dl with known cardiac or cerebrovascular disease Performed By: #### 8 6003 ####[facility] PRODUCT STATUS 1 PT Normal [facility] Comment on above: Order Comment: Hemog lobin < 9 gm/dl with known cardiac or cerebrovascular disease Result Comment: Resu lt changed by IF on 05/22/2021 17:51. The previous value was XM.Result changed by IF on 05/23/2021 00:30. The previous value was IS. Performed By: #### 8 6003 ####[facility] PRODUCT STATUS 2 RE Normal [facility] Comment on above: Order Comment: Hemog lobin < 9 gm/dl with known cardiac or cerebrovascular disease Result Comment: Resu lt changed by IF on 05/24/2021 07:35. The previous value was XM. Performed By: #### 8 6003 ####[facility] PRODUCT STATUS 3 RE Normal [facility] Comment on above: Order Comment: Hemog lobin < 9 gm/dl with known cardiac or cerebrovascular disease Result Comment: Resu lt changed by IF on 05/24/2021 07:35. The previous value was XM. Performed By: #### 8 6003 ####[facility] UNIT ABO 1 O Normal [facility] Comment on above: Order Comment: Hemog lobin < 9 gm/dl with known cardiac or cerebrovascular disease Performed By: #### 8 6003 ####[facility] UNIT ABO 2 O Normal [facility] Comment on above: Order Comment: Hemog lobin < 9 gm/dl with known cardiac or cerebrovascular disease Performed By: #### 8 6003 ####[facility] UNIT ABO 3 O Normal [facility] Comment on above: Order Comment: Hemog lobin < 9 gm/dl with known cardiac or cerebrovascular disease Performed By: #### 8 6003 ####[facility] UNIT ID 1 [id number] Normal [facility] Comment on above: Order Comment: Hemog lobin < 9 gm/dl with known cardiac or cerebrovascular disease Performed By: #### 8 6003 ####[facility] UNIT ID 2 [id number] Normal [facility] Comment on above: Order Comment: Hemog lobin < 9 gm/dl with known cardiac or cerebrovascular disease Performed By: #### 8 6003 ####[facility] UNIT ID 3 [id number] Normal [facility] Comment on above: Order Comment: Hemog lobin < 9 gm/dl with known cardiac or cerebrovascular disease Performed By: #### 8 6003 ####[facility] UNIT RH 1 Negative Normal [facility] Comment on above: Order Comment: Hemog lobin < 9 gm/dl with known cardiac or cerebrovascular disease Performed By: #### 8 6003 ####[facility] UNIT RH 2 Positive Normal [facility] Comment on above: Order Comment: Hemog lobin < 9 gm/dl with known cardiac or cerebrovascular disease Performed By: #### 8 6003 ####[facility] UNIT RH 3 Positive Normal [facility] Comment on above: Order Comment: Hemog lobin < 9 gm/dl with known cardiac or cerebrovascular disease Performed By: #### 8 6003 ####[facility] VANCOMYCIN TIMEDon VANCOMYCIN TIMED 19.6 mcg/mL Normal [facility] Comment on above: Performed By: #### 0 0071, 40010, 67382 ####[facility] BASIC METABOLIC PANELon - Calcium [Mass/Vol] 8.5 mg/dL Low 8.6-10.3 [facility] Comment on above: Order Comment: No: D o not add to previous draw Performed By: #### 1 0070, 02181, 69049 ####[facility] [place] [address], [facility] Chloride [Moles/Vol] 96 mmol/L Low 98-107 [facility] Comment on above: Order Comment: No: D o not add to previous draw Performed By: #### 1 0070, 16542, 80716 ####[facility] [facility] [address], [facility] CO2 [Moles/Vol] 37 mmol/L High 21-31 [facility] Comment on above: Order Comment: No: D o not add to previous draw Performed By: #### 1 0070, 58937, 92259 ####[facility] [place] [address], [facility] Creatinine [Mass/Vol] 0.92 mg/dL Normal 0.70-1.30 [facility] Comment on above: Order Comment: No: D o not add to previous draw Performed By: #### 1 0, 24754, 44300 ####[facility] [place] [address], [facility] GFR/1.73 sq M.predicted among blacks MDRD (S/P/Bld) [Vol rate/Area] mL/min/{1.73_m2} Normal >60 [facility] Comment on above: Order Comment: No: D o not add to previous draw Result Comment: Calc ulation may not be valid for patients over 70 years Performed By: #### 1 0070, 16520, 69205 ####[facility] [place] [address], [facility] GFR/1.73 sq M.predicted among non-blacks MDRD (S/P/Bld) [Vol rate/Area] mL/min/{1.73_m2} Normal >60 [facility] Comment on above: Order Comment: No: D o not add to previous draw Result Comment: Calc ulation may not be valid for patients over 70 years Performed By: #### 1 0070, 21379, 08653 ####[facility] [facility] [place] [address], [facility] Glucose [Mass/Vol] 117 mg/dL High 70-100 [facility] Comment on above: Order Comment: No: D o not add to previous draw Performed By: #### 1 0070, 65862, 89329 ####[facility] [facility] [address], [facility] Potassium [Moles/Vol] 3.9 mmol/L Normal 3.5-5.1 [facility] Comment on above: Order Comment: No: D o not add to previous draw Performed By: #### 1 0070, 81811, 34199 ####[facility] [place] [address], [facility] Sodium [Moles/Vol] 134 mmol/L Low 136-145 [facility] Comment on above: Order Comment: No: D o not add to previous draw Performed By: #### 1 0070, 56719, 47631 ####[facility] [place] [address], [facility] Urea nitrogen [Mass/Vol] 17 mg/dL Normal 7-25 [facility] Comment on above: Order Comment: No: D o not add to previous draw Performed By: #### 1 0, 70183, 92980 ####[facility] [facility].[address] CBC COMPLETE BLOOD COUNTon 0 05-21-2021 Erythrocyte distribution width (RBC) [Ratio] 14.3 % Normal 11.5-15.0 [facility] Comment on above: Order Comment: No: D o not add to previous draw Performed By: #### 5 0608 ####[facility] [place] [address], [facility] Hematocrit (Bld) [Volume fraction] 27.2 % Low 39.0-50.0 [facility] Comment on above: Order Comment: No: D o not add to previous draw Performed By: #### 5 0608 ####[facility] Hemoglobin (Bld) [Mass/Vol] 8.1 g/dL Low 13.0-17.0 [facility] Comment on above: Order Comment: No: D o not add to previous draw Performed By: #### 5 0608 ####[address] MCH (RBC) [Entitic mass] 27.6 pg Normal 27.0-33.0 [facility] Comment on above: Order Comment: No: D o not add to previous draw Performed By: #### 5 0608 ####[address] MCHC (RBC) [Mass/Vol] 29.8 g/dL Low 32.0-35.0 [facility] Comment on above: Order Comment: No: D o not add to previous draw Performed By: #### 5 0608 ####[address] MCV (RBC) [Entitic vol] 92.8 fL Normal 82.0-98.0 [facility] Comment on above: Order Comment: No: D o not add to previous draw Performed By: #### 5 0608 ####[address] Nucleated RBC/100 WBC (Bld) [Ratio] 0 % Normal 0-0 [facility] Comment on above: Order Comment: No: D o not add to previous draw Performed By: #### 5 0608 ####[address] PLAT CNT 329 10*3/uL Normal 150-400 [facility] Comment on above: Order Comment: No: D o not add to previous draw Performed By: #### 5 0608 ####[facility] RBC (Bld) [#/Vol] 2.93 10*6/uL Low 4.20-5.70 [facility] Comment on above: Order Comment: No: D o not add to previous draw Performed By: #### 5 0608 ####[facility] [facility] WBC (Bld) [#/Vol] 6.21 10*3/uL Normal 4.00-10.60 [facility] Comment on above: Order Comment: No: D o not add to previous draw Performed By: #### 5 0608 ####[facility] [facility].[address] MAGNESIUM BLOODon 05-21-2021 Magnesium [Mass/Vol] 2.0 mg/dL Normal 1.9-2.7 [facility] Comment on above: Order Comment: No: D o not add to previous draw Performed By: #### 1 0070, 04556, 57388 ####[place] [address] [facility].[address] Operative Reporton 1 Operative Report Normal [facility] PHOSPHORUS BLOODon 1 Phosphate [Mass/Vol] 4.0 mg/dL Normal 2.5-5.0 [facility] Comment on above: Order Comment: No: D o not add to previous draw Performed By: #### 1 0070, 68504, 98475 ####[facility] [facility].[address] POC GLUCOSE LABon 05-21-2021 Glucose [Mass/Vol] 143 mg/dL High 70-100 [facility] Comment on above: Performed By: #### 8 5499 ####[facility] [place] [address], [facility] Glucose [Mass/Vol] 123 mg/dL High 70-100 [facility] Comment on above: Performed By: #### 8 5499 ####[facility] [place] [address], [facility] Glucose [Mass/Vol] 128 mg/dL High 70-100 [facility] Comment on above: Performed By: #### 8 5499 ####[facility] [place] [address], [facility] Glucose [Mass/Vol] 158 mg/dL High 70-100 [facility] Comment on above: Performed By: #### 8 5499 ####[facility] [place] [address], [facility] PORTABLE CHEST 1 VIEWon 04-25 PORTABLE CHEST 1 VIEW Normal [facility] Comment on above: Order Comment: evalu ate for Atelectasis PROTHROMBIN TIMEon INR Coag (PPP) [Relative time] 1.12 {INR} Normal 0.91-1.16 [facility] Comment on above: Order Comment: No: [...] OF ACTION, CLINICALEFFECTIVENESS, AND OPTIMAL THERAPEUTIC RANGE. [id number]. Performed By: #### 5 6101 ####[facility] [facility].[address] PT Coag (PPP) [Time] 14.4 s Normal 12.3-14.8 [facility] Comment on above: Order Comment: No: D o not add to previous draw Result Comment: ALL RESULTS MUST BE INTERPRETED WITH RESPECT TO BLOOD DRAWING ARTIFACTOR DILUTION ERROR OF ANTICOAGULANT AT THE TIME OF SAMPLING. Performed By: #### 5 6101 ####[facility] [facility].[address] BASIC METABOLIC PANELon 09-2 Calcium [Mass/Vol] 8.8 mg/dL Normal 8.6-10.3 [facility] Comment on above: Order Comment: No: D o not add to previous draw Performed By: #### 1 0070, 48303, 14763 ####[facility] [facility] [place] [address], [facility] Chloride [Moles/Vol] 96 mmol/L Low 98-107 [facility] Comment on above: Order Comment: No: D o not add to previous draw Performed By: #### 1 0070, 00453, 57700 ####[facility] [facility] [place] [address], [facility] CO2 [Moles/Vol] 33 mmol/L High 21-31 [facility] Comment on above: Order Comment: No: D o not add to previous draw Performed By: #### 1 0070, 02486, 67047 ####[facility] [place] [address], [facility] Creatinine [Mass/Vol] 0.90 mg/dL Normal 0.70-1.30 [facility] Comment on above: Order Comment: No: D o not add to previous draw Performed By: #### 1 0070, 02744, 47319 ####[facility] [place] [address], [facility] GFR/1.73 sq M.predicted among blacks MDRD (S/P/Bld) [Vol rate/Area] mL/min/{1.73_m2} Normal >60 [facility] Comment on above: Order Comment: No: D o not add to previous draw Result Comment: Calc ulation may not be valid for patients over 70 years Performed By: #### 1 0070, 60358, 73378 ####[facility] [place] [address], [facility] GFR/1.73 sq M.predicted among non-blacks MDRD (S/P/Bld) [Vol rate/Area] mL/min/{1.73_m2} Normal >60 [facility] Comment on above: Order Comment: No: D o not add to previous draw Result Comment: Calc ulation may not be valid for patients over 70 years Performed By: #### 1 0070, 89395, 49739 ####[facility] [place] [address], [facility] Glucose [Mass/Vol] 113 mg/dL High 70-100 [facility] Comment on above: Order Comment: No: D o not add to previous draw Performed By: #### 1 0, 90514, 55199 ####[facility] [place] [address], [facility] Potassium [Moles/Vol] 3.6 mmol/L Normal 3.5-5.1 [facility] Comment on above: Order Comment: No: D o not add to previous draw Performed By: #### 1 0070, 41611, 38747 ####[facility] [place] [address], [place] Sodium [Moles/Vol] 135 mmol/L Low 136-145 [facility] Comment on above: Order Comment: No: D o not add to previous draw Performed By: #### 1 0070, 89769, 26554 ####[facility] [facility].[address] Urea nitrogen [Mass/Vol] 15 mg/dL Normal 7-25 [facility] Comment on above: Order Comment: No: D o not add to previous draw Performed By: #### 1 0070, 66943, 07885 ####[facility] [facility].[address] CBC COMPLETE BLOOD COUNTon 0 05-20-2021 Erythrocyte distribution width (RBC) [Ratio] 14.1 % Normal 11.5-15.0 [facility] Comment on above: Order Comment: No: D o not add to previous draw Performed By: #### 5 0608 ####[facility] [facility].[address] Hematocrit (Bld) [Volume fraction] 28.9 % Low 39.0-50.0 [facility] Comment on above: Order Comment: No: D o not add to previous draw Performed By: #### 5 0608 ####[place] [address] [facility].[address] Hemoglobin (Bld) [Mass/Vol] 8.9 g/dL Low 13.0-17.0 [facility] Comment on above: Order Comment: No: D o not add to previous draw Performed By: #### 5 0608 ####[facility] [place] [address], [facility] MCH (RBC) [Entitic mass] 28.3 pg Normal 27.0-33.0 [facility] Comment on above: Order Comment: No: D o not add to previous draw Performed By: #### 5 0608 ####[facility] [place] [address], [facility] MCHC (RBC) [Mass/Vol] 30.8 g/dL Low 32.0-35.0 [facility] Comment on above: Order Comment: No: D o not add to previous draw Performed By: #### 5 0608 ####[facility] [place] [address], [facility] MCV (RBC) [Entitic vol] 92.0 fL Normal 82.0-98.0 [facility] Comment on above: Order Comment: No: D o not add to previous draw Performed By: #### 5 0608 ####[facility] [facility].[address] Nucleated RBC/100 WBC (Bld) [Ratio] 0 % Normal 0-0 [facility] Comment on above: Order Comment: No: D o not add to previous draw Performed By: #### 5 0608 ####[facility] [place] [address], [facility] PLAT CNT 339 10*3/uL Normal 150-400 [facility] Comment on above: Order Comment: No: D o not add to previous draw Performed By: #### 5 0608 ####[facility] [facility].[address] RBC (Bld) [#/Vol] 3.14 10*6/uL Low 4.20-5.70 [facility] Comment on above: Order Comment: No: D o not add to previous draw Performed By: #### 5 0608 ####[facility] [place] [address], [facility] WBC (Bld) [#/Vol] 6.69 10*3/uL Normal 4.00-10.60 [facility] Comment on above: Order Comment: No: D o not add to previous draw Performed By: #### 5 0608 ####[facility] [place] [address], [facility] Erythrocyte distribution width (RBC) [Ratio] 14.1 % Normal 11.5-15.0 [facility] Comment on above: Order Comment: No: D o not add to previous draw Performed By: #### 5 0608 ####[facility] Hematocrit (Bld) [Volume fraction] 29.5 % Low 39.0-50.0 [facility] Comment on above: Order Comment: No: D o not add to previous draw Performed By: #### 5 0608 ####[facility] [facility] [address] Hemoglobin (Bld) [Mass/Vol] 9.3 g/dL Low 13.0-17.0 [facility] Comment on above: Order Comment: No: D o not add to previous draw Performed By: #### 5 0608 ####[facility] MCH (RBC) [Entitic mass] 28.2 pg Normal 27.0-33.0 [facility] Comment on above: Order Comment: No: D o not add to previous draw Performed By: #### 5 0608 ####[address] MCHC (RBC) [Mass/Vol] 31.5 g/dL Low 32.0-35.0 [facility] Comment on above: Order Comment: No: D o not add to previous draw Performed By: #### 5 0608 ####[facility] MCV (RBC) [Entitic vol] 89.4 fL Normal 82.0-98.0 [facility] Comment on above: Order Comment: No: D o not add to previous draw Performed By: #### 5 0608 ####[address] Nucleated RBC/100 WBC (Bld) [Ratio] 0 % Normal 0-0 [facility] Comment on above: Order Comment: No: D o not add to previous draw Performed By: #### 5 0608 ####[facility] [place] [address], [facility] PLAT CNT 338 10*3/uL Normal 150-400 [facility] Comment on above: Order Comment: No: D o not add to previous draw Performed By: #### 5 0608 ####[facility] [place] [address], [facility] RBC (Bld) [#/Vol] 3.30 10*6/uL Low 4.20-5.70 [facility] Comment on above: Order Comment: No: D o not add to previous draw Performed By: #### 5 0608 ####[facility] [place] [address], [facility] WBC (Bld) [#/Vol] 6.66 10*3/uL Normal 4.00-10.60 [facility] Comment on above: Order Comment: No: D o not add to previous draw Performed By: #### 5 0608 ####[facility] [place] [address], [facility] MAGNESIUM BLOODon 05-20-2021 Magnesium [Mass/Vol] 1.9 mg/dL Normal 1.9-2.7 [facility] Comment on above: Order Comment: No: D o not add to previous draw Performed By: #### 1 0070, 63159, 44728 ####[facility] [place] [address], [facility] PHOSPHORUS BLOODon Phosphate [Mass/Vol] 3.7 mg/dL Normal 2.5-5.0 [facility] Comment on above: Order Comment: No: D o not add to previous draw Performed By: #### 1 0, 37383, 00426 ####[facility] [place] [address], [facility] POC GLUCOSE LABon 05-20-2021 Glucose [Mass/Vol] 130 mg/dL High 70-100 [facility] Comment on above: Performed By: #### 8 5499 ####[facility] [place] [address], [place] Glucose [Mass/Vol] 119 mg/dL High 70-100 [facility] Comment on above: Performed By: #### 8 5499 ####[facility] [facility] [place] [address], [place] Glucose [Mass/Vol] 118 mg/dL High 70-100 [facility] Comment on above: Performed By: #### 8 5499 ####[facility] [place] [address], [place] Glucose [Mass/Vol] 118 mg/dL High 70-100 [facility] Comment on above: Performed By: #### 8 5499 ####[facility] [place] [address], [facility] Glucose [Mass/Vol] 119 mg/dL High 70-100 [facility] Comment on above: Performed By: #### 8 5499 ####[facility] [facility] [place] [address], [facility] PROTHROMBIN TIMEon INR Coag (PPP) [Relative time] 1.09 {INR} Normal 0.91-1.16 [facility] Comment on above: Order Comment: No: [...] OF ACTION, CLINICALEFFECTIVENESS, AND OPTIMAL THERAPEUTIC RANGE. [id number]. Performed By: #### 5 6101 ####[facility] PT Coag (PPP) [Time] 14.1 s Normal 12.3-14.8 [facility] Comment on above: Order Comment: No: D o not add to previous draw Result Comment: ALL RESULTS MUST BE INTERPRETED WITH RESPECT TO BLOOD DRAWING ARTIFACTOR DILUTION ERROR OF ANTICOAGULANT AT THE TIME OF SAMPLING. Performed By: #### 5 6101 ####[facility] TYPE AND SCREENon 05-20-2021 ABO INTERPRETATION O Normal [facility] Comment on above: Performed By: #### 6 2586 ####[facility] RH INTERPRETATION Positive Normal [facility] Comment on above: Performed By: #### 6 2586 ####[facility] *MRSA/MSSA DNA NASALon 05-19 *MRSA/MSSA DNA NASAL Clinical Report: (D) Specimen: NASAL SWAB Collected: 05/19/2021 10:27 Status: Final Last Updated: 05/19/2021 15:02 MSSA DNA (Final) Negative MRSA DNA (Final) Negative Normal [facility] Comment on above: Performed By: #### 3 1595 ####[facility] [place] [address], [facility] CBC W/DIFFon 05-19-2021 ABS IMM GRANS 0.0 10*3/uL Normal 0.0-0.2 The [facility] Comment on above: Order Comment: No: D o not add to previous draw Performed By: #### 5 0103 ####[facility] [place] [address], [facility] ABS NEUTROPHILS 4.3 10*3/uL Normal 1.6-7.6 [facility] Comment on above: Order Comment: No: D o not add to previous draw Performed By: #### 5 0103 ####[facility] [place] [address], [facility] Basophils (Bld) [#/Vol] 0.0 10*3/uL Normal 0.0-0.2 [facility] Comment on above: Order Comment: No: D o not add to previous draw Performed By: #### 5 0103 ####[facility] [place] [address], [facility] Basophils/100 WBC (Bld) 0.5 % Normal 0.0-1.0 [facility] Comment on above: Order Comment: No: D o not add to previous draw Performed By: #### 5 0103 ####[facility] [place] [address], [facility] Eosinophils (Bld) [#/Vol] 0.2 10*3/uL Normal 0.0-0.5 [facility] Comment on above: Order Comment: No: D o not add to previous draw Performed By: #### 5 0103 ####[facility] [place] [address], [place] Eosinophils/100 WBC (Bld) 3.1 % Normal 0.0-6.0 [facility] Comment on above: Order Comment: No: D o not add to previous draw Performed By: #### 5 0103 ####[facility]3000 [facility].[address] Erythrocyte distribution width (RBC) [Ratio] 14.2 % Normal 11.5-15.0 [facility] Comment on above: Order Comment: No: D o not add to previous draw Performed By: #### 5 0103 ####[facility]3000 [facility].[address] Hematocrit (Bld) [Volume fraction] 29.0 % Low 39.0-50.0 [facility] Comment on above: Order Comment: No: D o not add to previous draw Performed By: #### 5 0103 ####[facility] [place] [address], [facility] Hemoglobin (Bld) [Mass/Vol] 9.2 g/dL Low 13.0-17.0 [facility] Comment on above: Order Comment: No: D o not add to previous draw Performed By: #### 5 0103 ####[facility] [facility].[address] IMMATURE GRANS 0.5 % Normal 0.0-1.0 The [facility] Comment on above: Order Comment: No: D o not add to previous draw Performed By: #### 5 0103 ####[facility] [place] [address], [facility] Lymphocytes (Bld) [#/Vol] 1.0 10*3/uL Low 1.2-4.0 [facility] Comment on above: Order Comment: No: D o not add to previous draw Performed By: #### 5 3 ####[facility] [place] [address], [facility] Lymphocytes/100 WBC (Bld) 15.9 % Low 20.0-45.0 [facility] Comment on above: Order Comment: No: D o not add to previous draw Performed By: #### 5 0103 ####[facility] [place] [address], [facility] MCH (RBC) [Entitic mass] 28.5 pg Normal 27.0-33.0 [facility] Comment on above: Order Comment: No: D o not add to previous draw Performed By: #### 5 0103 ####[facility] [facility].[address] MCHC (RBC) [Mass/Vol] 31.7 g/dL Low 32.0-35.0 [facility] Comment on above: Order Comment: No: D o not add to previous draw Performed By: #### 5 0103 ####[facility] [facility].[address] MCV (RBC) [Entitic vol] 89.8 fL Normal 82.0-98.0 [facility] Comment on above: Order Comment: No: D o not add to previous draw Performed By: #### 5 0103 ####[facility] [facility].[address] Monocytes (Bld) [#/Vol] 0.6 10*3/uL Normal 0.1-1.0 [facility] Comment on above: Order Comment: No: D o not add to previous draw Performed By: #### 5 0103 ####[facility] [facility].[address] MONOS 10.2 % Normal 5.0-12.0 [facility] Comment on above: Order Comment: No: D o not add to previous draw Performed By: #### 5 0103 ####[facility] Neutrophils/100 WBC (Bld) 69.8 % Normal 40.0-72.0 [facility] Comment on above: Order Comment: No: D o not add to previous draw Performed By: #### 5 0103 ####[facility] [place] [address], [facility] Nucleated RBC/100 WBC (Bld) [Ratio] 0 % Normal 0-0 [facility] Comment on above: Order Comment: No: D o not add to previous draw Performed By: #### 5 0103 ####[facility] [facility] [address], [facility] PLAT CNT 294 10*3/uL Normal 150-400 [facility] Comment on above: Order Comment: No: D o not add to previous draw Performed By: #### 5 0103 ####[facility] [place] [address], [facility] RBC (Bld) [#/Vol] 3.23 10*6/uL Low 4.20-5.70 [facility] Comment on above: Order Comment: No: D o not add to previous draw Performed By: #### 5 0103 ####[facility] [place] [address], [facility] WBC (Bld) [#/Vol] 6.09 10*3/uL Normal 4.00-10.60 [facility] Comment on above: Order Comment: No: D o not add to previous draw Performed By: #### 5 0103 ####[facility] [place] [address], [facility] COMP METABOLIC PANELon 05-19 Albumin [Mass/Vol] 2.8 g/dL Low 3.5-5.7 [facility] Comment on above: Order Comment: No: D o not add to previous draw Performed By: #### 4 1000, 11520, 93654 ####[facility] [place] [address], [facility] ALKALINE PHOSPH 59 IU/L Normal 34-104 [facility] Comment on above: Order Comment: No: D o not add to previous draw Performed By: #### 4 1000, 00550, 22057 ####[facility] [place] [address], [place] ALT [Catalytic activity/Vol] 9 U/L Normal 7-52 [facility] Comment on above: Order Comment: No: D o not add to previous draw Performed By: #### 4 1000, 59925, 37252 ####[facility] [place] [address], [place] AST [Catalytic activity/Vol] 20 U/L Normal 13-39 [facility] Comment on above: Order Comment: No: D o not add to previous draw Performed By: #### 4 1000, 19343, 69665 ####[facility] [place] [address], [place] Bilirubin [Mass/Vol] 0.6 mg/dL Normal 0.3-1.0 [facility] Comment on above: Order Comment: No: D o not add to previous draw Performed By: #### 4 1000, 21807, 65551 ####[facility] [place] [address], [place] Calcium [Mass/Vol] 8.5 mg/dL Low 8.6-10.3 [facility] Comment on above: Order Comment: No: D o not add to previous draw Performed By: #### 4 1000, 14756, 09763 ####[facility] [place] [address], [place] Chloride [Moles/Vol] 98 mmol/L Normal 98-107 [facility] Comment on above: Order Comment: No: D o not add to previous draw Performed By: #### 4 1000, 56071, 02548 ####[facility] [place] [address], [facility] CO2 [Moles/Vol] 31 mmol/L Normal 21-31 [facility] Comment on above: Order Comment: No: D o not add to previous draw Performed By: #### 4 1000, 50383, 66506 ####[facility] [place] [address], [facility] Creatinine [Mass/Vol] 0.74 mg/dL Normal 0.70-1.30 [facility] Comment on above: Order Comment: No: D o not add to previous draw Performed By: #### 4 1000, 62671, 92123 ####[place] [address] [place] [address], [facility] GFR/1.73 sq M.predicted among blacks MDRD (S/P/Bld) [Vol rate/Area] mL/min/{1.73_m2} Normal >60 [facility] Comment on above: Order Comment: No: D o not add to previous draw Result Comment: Calc ulation may not be valid for patients over 70 years Performed By: #### 4 1000, 02000, 70452 ####[facility] [place] [address], [facility] GFR/1.73 sq M.predicted among non-blacks MDRD (S/P/Bld) [Vol rate/Area] mL/min/{1.73_m2} Normal >60 [facility] Comment on above: Order Comment: No: D o not add to previous draw Result Comment: Calc ulation may not be valid for patients over 70 years Performed By: #### 4 1000, 02051, 46665 ####[facility] [place] [address], [facility] Glucose [Mass/Vol] 143 mg/dL High 70-100 [facility] Comment on above: Order Comment: No: D o not add to previous draw Performed By: #### 4 1000, 58133, 87374 ####[facility] [place] [address], [facility] Potassium [Moles/Vol] 3.4 mmol/L Low 3.5-5.1 [facility] Comment on above: Order Comment: No: D o not add to previous draw Performed By: #### 4 1000, 07225, 14057 ####[facility] [place] [address], [place] Protein [Mass/Vol] 6.7 g/dL Normal 6.0-8.3 [facility] Comment on above: Order Comment: No: D o not add to previous draw Performed By: #### 4 1000, 64113, 67236 ####[facility] [place] [address], [place] Sodium [Moles/Vol] 134 mmol/L Low 136-145 [facility] Comment on above: Order Comment: No: D o not add to previous draw Performed By: #### 4 1000, 22827, 68176 ####[facility] [place] [address], [facility] Urea nitrogen [Mass/Vol] 14 mg/dL Normal 7-25 [facility] Comment on above: Order Comment: No: D o not add to previous draw Performed By: #### 4 1000, 33977, 41123 ####[facility] [place] [address], [place] MAGNESIUM BLOODon 05-19-2021 Magnesium [Mass/Vol] 1.9 mg/dL Normal 1.9-2.7 [facility] Comment on above: Order Comment: No: D o not add to previous draw Performed By: #### 4 1000, 88696, 05366 ####[facility] [place] [address], [place] PHOSPHORUS BLOODon Phosphate [Mass/Vol] 3.1 mg/dL Normal 2.5-5.0 [facility] Comment on above: Order Comment: No: D o not add to previous draw Performed By: #### 4 1000, 12402, 96131 ####[facility] [place] [address], [place] POC GLUCOSE LABon 05-19-2021 Glucose [Mass/Vol] 124 mg/dL High 70-100 [facility] Comment on above: Performed By: #### 8 5499 ####[facility] [place] [address], [place] Glucose [Mass/Vol] 132 mg/dL High 70-100 [facility] Comment on above: Performed By: #### 8 5499 ####[facility] [place] [address], [place] Glucose [Mass/Vol] 153 mg/dL High 70-100 [facility] Comment on above: Performed By: #### 8 5499 ####[facility] [place] [address], [place] Glucose [Mass/Vol] 133 mg/dL High 70-100 [facility] Comment on above: Performed By: #### 8 5499 ####[facility] [facility] [address], [place] POC SARS COV2 ANTIGEN NEGATI VEon 05-19-2021 POC SARS COV2 ANTIGEN NEG Negative Normal NEGATIVE [facility] Comment on above: Result Comment: Nega [...] of clinicalsigns and symptoms consistent with COVID-19.The [employer] COVID-19 Ag Card is a lateral flow immunoassay intended forthe qualitative detection of nucleocapsid protein antigen [id number] in direct nasal swabs from individuals within [...] Certificate ofAccreditation. Performed By: #### 3 1977 ####[facility] VANCOMYCIN TIMEDon VANCOMYCIN TIMED 16.3 mcg/mL Normal [facility] Comment on above: Performed By: #### 3 0953 ####[place] [address] CBC W/DIFFon 05-18-2021 ABS IMM GRANS 0.0 10*3/uL Normal 0.0-0.2 The [facility] Comment on above: Order Comment: No: D o not add to previous draw Performed By: #### 5 0103 ####[facility] ABS NEUTROPHILS 5.1 10*3/uL Normal 1.6-7.6 The [facility] Comment on above: Order Comment: No: D o not add to previous draw Performed By: #### 5 0103 ####[facility] Basophils (Bld) [#/Vol] 0.0 10*3/uL Normal 0.0-0.2 [facility] Comment on above: Order Comment: No: D o not add to previous draw Performed By: #### 5 0103 ####[place] [address] Basophils/100 WBC (Bld) 0.4 % Normal 0.0-1.0 [facility] Comment on above: Order Comment: No: D o not add to previous draw Performed By: #### 5 0103 ####[facility]3000 [facility].[address] Eosinophils (Bld) [#/Vol] 0.2 10*3/uL Normal 0.0-0.5 [facility] Comment on above: Order Comment: No: D o not add to previous draw Performed By: #### 5 0103 ####[facility] Eosinophils/100 WBC (Bld) 2.6 % Normal 0.0-6.0 [facility] Comment on above: Order Comment: No: D o not add to previous draw Performed By: #### 5 0103 ####[facility]3000 [facility].[address] Erythrocyte distribution width (RBC) [Ratio] 14.1 % Normal 11.5-15.0 [facility] Comment on above: Order Comment: No: D o not add to previous draw Performed By: #### 5 0103 ####[facility]3000 [facility].[address] Hematocrit (Bld) [Volume fraction] 27.5 % Low 39.0-50.0 [facility] Comment on above: Order Comment: No: D o not add to previous draw Performed By: #### 5 0103 ####[facility]3000 [facility].[address] Hemoglobin (Bld) [Mass/Vol] 8.6 g/dL Low 13.0-17.0 [facility] Comment on above: Order Comment: No: D o not add to previous draw Performed By: #### 5 0103 ####[facility]3000 [facility].[address] IMMATURE GRANS 0.1 % Normal 0.0-1.0 The [facility] Comment on above: Order Comment: No: D o not add to previous draw Performed By: #### 5 0103 ####[facility] Lymphocytes (Bld) [#/Vol] 1.3 10*3/uL Normal 1.2-4.0 [facility] Comment on above: Order Comment: No: D o not add to previous draw Performed By: #### 5 0103 ####[facility] Lymphocytes/100 WBC (Bld) 18.0 % Low 20.0-45.0 [facility] Comment on above: Order Comment: No: D o not add to previous draw Performed By: #### 5 0103 ####[facility] MCH (RBC) [Entitic mass] 28.7 pg Normal 27.0-33.0 [facility] Comment on above: Order Comment: No: D o not add to previous draw Performed By: #### 5 0103 ####[facility] MCHC (RBC) [Mass/Vol] 31.3 g/dL Low 32.0-35.0 [facility] Comment on above: Order Comment: No: D o not add to previous draw Performed By: #### 5 0103 ####[facility] MCV (RBC) [Entitic vol] 91.7 fL Normal 82.0-98.0 [facility] Comment on above: Order Comment: No: D o not add to previous draw Performed By: #### 5 3 ####[facility] [place] [address], [facility] Monocytes (Bld) [#/Vol] 0.7 10*3/uL Normal 0.1-1.0 [facility] Comment on above: Order Comment: No: D o not add to previous draw Performed By: #### 5 0103 ####[facility] [id number], [facility] MONOS 10.0 % Normal 5.0-12.0 [facility] Comment on above: Order Comment: No: D o not add to previous draw Performed By: #### 5 0103 ####[facility] [place] [address], [facility] Neutrophils/100 WBC (Bld) 68.9 % Normal 40.0-72.0 [facility] Comment on above: Order Comment: No: D o not add to previous draw Performed By: #### 5 0103 ####[facility] [place] [address], [facility] Nucleated RBC/100 WBC (Bld) [Ratio] 0 % Normal 0-0 [facility] Comment on above: Order Comment: No: D o not add to previous draw Performed By: #### 5 0103 ####[facility] [place] [address], [facility] PLAT CNT 288 10*3/uL Normal 150-400 [facility] Comment on above: Order Comment: No: D o not add to previous draw Performed By: #### 5 0103 ####[facility] [place] [address], [facility] RBC (Bld) [#/Vol] 3.00 10*6/uL Low 4.20-5.70 [facility] Comment on above: Order Comment: No: D o not add to previous draw Performed By: #### 5 3 ####[facility] [place] [address], [facility] WBC (Bld) [#/Vol] 7.40 10*3/uL Normal 4.00-10.60 [facility] Comment on above: Order Comment: No: D o not add to previous draw Performed By: #### 5 0103 ####[facility] COMP METABOLIC PANELon 05-18 Albumin [Mass/Vol] 2.7 g/dL Low 3.5-5.7 [facility] Comment on above: Order Comment: No: D o not add to previous draw Performed By: #### 4 1000, 00681, 95672, 54689 ####[facility] [facility].[address] ALKALINE PHOSPH 62 IU/L Normal 34-104 [facility] Comment on above: Order Comment: No: D o not add to previous draw Performed By: #### 4 1000, 05897, 85094, 05030 ####[facility] ALT [Catalytic activity/Vol] 11 U/L Normal 7-52 [facility] Comment on above: Order Comment: No: D o not add to previous draw Performed By: #### 4 1000, 22153, 07295, 03951 ####[facility] AST [Catalytic activity/Vol] 31 U/L Normal 13-39 [facility] Comment on above: Order Comment: No: D o not add to previous draw Performed By: #### 4 1000, 77279, 75180, 19778 ####[facility] [place] [address], [facility] Bilirubin [Mass/Vol] 0.8 mg/dL Normal 0.3-1.0 [facility] Comment on above: Order Comment: No: D o not add to previous draw Performed By: #### 4 1000, 79178, 50585, 69929 ####[facility] [place] [address], [facility] Calcium [Mass/Vol] 8.0 mg/dL Low 8.6-10.3 [facility] Comment on above: Order Comment: No: D o not add to previous draw Performed By: #### 4 1000, 48666, 66866, 09483 ####[facility] [place] [address], [facility] Chloride [Moles/Vol] 98 mmol/L Normal 98-107 [facility] Comment on above: Order Comment: No: D o not add to previous draw Performed By: #### 4 1000, 66207, 02850, 85350 ####[facility] [place] [address], [facility] CO2 [Moles/Vol] 33 mmol/L High 21-31 [facility] Comment on above: Order Comment: No: D o not add to previous draw Performed By: #### 4 1000, 19574, 43365, 24487 ####[facility] [facility] [place] [address], [facility] Creatinine [Mass/Vol] 0.89 mg/dL Normal 0.70-1.30 [facility] Comment on above: Order Comment: No: D o not add to previous draw Performed By: #### 4 1000, 45778, 74578, 34155 ####[facility] [place] [address], [facility] GFR/1.73 sq M.predicted among blacks MDRD (S/P/Bld) [Vol rate/Area] mL/min/{1.73_m2} Normal >60 [facility] Comment on above: Order Comment: No: D o not add to previous draw Result Comment: Calc ulation may not be valid for patients over 70 years Performed By: #### 4 1000, 37878, 00951, 58752 ####[facility] [id number], [place] GFR/1.73 sq M.predicted among non-blacks MDRD (S/P/Bld) [Vol rate/Area] mL/min/{1.73_m2} Normal >60 [facility] Comment on above: Order Comment: No: D o not add to previous draw Result Comment: Calc ulation may not be valid for patients over 70 years Performed By: #### 4 1000, 84967, 59444, 32171 ####[facility] [place] [address], [place] Glucose [Mass/Vol] 108 mg/dL High 70-100 [facility] Comment on above: Order Comment: No: D o not add to previous draw Performed By: #### 4 1000, 48548, 57165, 85586 ####[facility] [place] [address], [place] Potassium [Moles/Vol] 3.7 mmol/L Normal 3.5-5.1 [facility] Comment on above: Order Comment: No: D o not add to previous draw Performed By: #### 4 1000, 36420, 59210, 00099 ####[facility] [place] [address], [place] Protein [Mass/Vol] 6.6 g/dL Normal 6.0-8.3 [facility] Comment on [facility]: Order Comment: No: D o not add to previous draw Performed By: #### 4 1000, 45675, 80717, 32133 ####[facility] [place] [address], [place] Sodium [Moles/Vol] 136 mmol/L Normal 136-145 [facility] Comment on above: Order Comment: No: D o not add to previous draw Performed By: #### 4 1000, 49226, 70479, 06782 ####[facility] [place] [address], [place] Urea nitrogen [Mass/Vol] 16 mg/dL Normal 7-25 [facility] Comment on above: Order Comment: No: D o not add to previous draw Performed By: #### 4 1000, 94861, 36158, 79530 ####[facility] [place] [address], [place] MAGNESIUM BLOODon 05-18-2021 Magnesium [Mass/Vol] 1.9 mg/dL Normal 1.9-2.7 [facility] Comment on above: Order Comment: No: D o not add to previous draw Performed By: #### 4 1000, 05274, 82791, 38647 ####[facility] [place] [address], [place] PHOSPHORUS BLOODon Phosphate [Mass/Vol] 4.2 mg/dL Normal 2.5-5.0 [facility] Comment on above: Order Comment: No: D o not add to previous draw Performed By: #### 4 1000, 81002, 54800, 62569 ####[facility] [place] [address], [place] POC GLUCOSE LABon 05-18-2021 Glucose [Mass/Vol] 152 mg/dL High 70-100 [facility] Comment on above: Performed By: #### 8 5499 ####[facility] [place] [address], [place] Glucose [Mass/Vol] 140 mg/dL High 70-100 [facility] Comment on above: Performed By: #### 8 5499 ####[facility] [place] [address], [place] Glucose [Mass/Vol] 202 mg/dL High 70-100 [facility] Comment on above: Performed By: #### 8 5499 ####[facility] [place] [address], [place] Glucose [Mass/Vol] 121 mg/dL High 70-100 [facility] Comment on above: Performed By: #### 8 5499 ####[facility] PORTABLE CHEST 1 VIEWon 04-25 PORTABLE CHEST 1 VIEW Normal [facility] Comment on above: Order Comment: EValu ate for Effusion VANCOMYCIN TIMEDon VANCOMYCIN TIMED 10.2 mcg/mL Normal [facility] Comment on above: Performed By: #### 4 1000, 63103, 67690, 12570 ####[facility] CBC W/DIFFon 05-17-2021 ABS IMM GRANS 0.0 10*3/uL Normal 0.0-0.2 The [facility] Comment on above: Order Comment: No: D o not add to previous draw Performed By: #### 5 0103 ####[facility] ABS NEUTROPHILS 3.6 10*3/uL Normal 1.6-7.6 The [facility] Comment on above: Order Comment: No: D o not add to previous draw Performed By: #### 5 0103 ####[facility] Basophils (Bld) [#/Vol] 0.1 10*3/uL Normal 0.0-0.2 [facility] Comment on above: Order Comment: No: D o not add to previous draw Performed By: #### 5 0103 ####[facility] Basophils/100 WBC (Bld) 0.9 % Normal 0.0-1.0 [facility] Comment on above: Order Comment: No: D o not add to previous draw Performed By: #### 5 0103 ####[facility] Eosinophils (Bld) [#/Vol] 0.1 10*3/uL Normal 0.0-0.5 [facility] Comment on above: Order Comment: No: D o not add to previous draw Performed By: #### 5 0103 ####[facility] Eosinophils/100 WBC (Bld) 0.9 % Normal 0.0-6.0 [facility] Comment on above: Order Comment: No: D o not add to previous draw Performed By: #### 5 3 ####[facility] Erythrocyte distribution width (RBC) [Ratio] 14.6 % Normal 11.5-15.0 [facility] Comment on above: Order Comment: No: D o not add to previous draw Performed By: #### 5 3 ####[facility] Hematocrit (Bld) [Volume fraction] 27.7 % Low 39.0-50.0 [facility] Comment on above: Order Comment: No: D o not add to previous draw Performed By: #### 5 3 ####[facility] Hemoglobin (Bld) [Mass/Vol] 8.5 g/dL Low 13.0-17.0 [facility] Comment on above: Order Comment: No: D o not add to previous draw Performed By: #### 5 0103 ####[facility] IMMATURE GRANS 0.5 % Normal 0.0-1.0 [facility] Comment on above: Order Comment: No: D o not add to previous draw Performed By: #### 5 0103 ####[facility] Lymphocytes (Bld) [#/Vol] 1.4 10*3/uL Normal 1.2-4.0 [facility] Comment on above: Order Comment: No: D o not add to previous draw Performed By: #### 5 3 ####[facility] Lymphocytes/100 WBC (Bld) 23.3 % Normal 20.0-45.0 [facility] Comment on above: Order Comment: No: D o not add to previous draw Performed By: #### 5 3 ####[facility] [place] [address] MCH (RBC) [Entitic mass] 28.4 pg Normal 27.0-33.0 [facility] Comment on above: Order Comment: No: D o not add to previous draw Performed By: #### 5 3 ####[facility] MCHC (RBC) [Mass/Vol] 30.7 g/dL Low 32.0-35.0 [facility] Comment on above: Order Comment: No: D o not add to previous draw Performed By: #### 5 3 ####[facility] MCV (RBC) [Entitic vol] 92.6 fL Normal 82.0-98.0 [facility] Comment on above: Order Comment: No: D o not add to previous draw Performed By: #### 5 0103 ####[facility] [place] [address], [facility] Monocytes (Bld) [#/Vol] 0.7 10*3/uL Normal 0.1-1.0 [facility] Comment on above: Order Comment: No: D o not add to previous draw Performed By: #### 5 0103 ####[facility] [id number], [facility] MONOS 11.7 % Normal 5.0-12.0 [facility] Comment on above: Order Comment: No: D o not add to previous draw Performed By: #### 5 0103 ####[facility] [id number], [facility] Neutrophils/100 WBC (Bld) 62.7 % Normal 40.0-72.0 [facility] Comment on above: Order Comment: No: D o not add to previous draw Performed By: #### 5 0103 ####[facility] [id number], [facility] Nucleated RBC/100 WBC (Bld) [Ratio] 0 % Normal 0-0 [facility] Comment on above: Order Comment: No: D o not add to previous draw Performed By: #### 5 0103 ####[facility] [place] [address], [facility] PLAT CNT 325 10*3/uL Normal 150-400 [facility] Comment on above: Order Comment: No: D o not add to previous draw Performed By: #### 5 3 ####[facility] [place] [address], [facility] RBC (Bld) [#/Vol] 2.99 10*6/uL Low 4.20-5.70 [facility] Comment on above: Order Comment: No: D o not add to previous draw Performed By: #### 5 0103 ####[facility] [id number], [place] WBC (Bld) [#/Vol] 5.79 10*3/uL Normal 4.00-10.60 [facility] Comment on above: Order Comment: No: D o not add to previous draw Performed By: #### 5 3 ####[facility] [place] [address], [facility] COMP METABOLIC PANELon 05-17 Albumin [Mass/Vol] 2.8 g/dL Low 3.5-5.7 [facility] Comment on above: Order Comment: No: D o not add to previous draw Performed By: #### 4 1000, 57353, 64599 ####[facility] [place] [address], [facility] ALKALINE PHOSPH 55 IU/L Normal 34-104 [facility] Comment on above: Order Comment: No: D o not add to previous draw Performed By: #### 4 1000, 90675, 92862 ####[facility] [place] [address], [facility] ALT [Catalytic activity/Vol] 7 U/L Normal 7-52 [facility] Comment on above: Order Comment: No: D o not add to previous draw Performed By: #### 4 1000, 85934, 64140 ####[facility] [place] [address], [facility] AST [Catalytic activity/Vol] 11 U/L Low 13-39 [facility] Comment on above: Order Comment: No: D o not add to previous draw Performed By: #### 4 1000, 24940, 79352 ####[facility] [place] [address], [facility] Bilirubin [Mass/Vol] 0.6 mg/dL Normal 0.3-1.0 [facility] Comment on above: Order Comment: No: D o not add to previous draw Performed By: #### 4 1000, 86759, 24449 ####[facility] [place] [address], [facility] Calcium [Mass/Vol] 8.2 mg/dL Low 8.6-10.3 [facility] Comment on above: Order Comment: No: D o not add to previous draw Performed By: #### 4 1000, 64963, 03842 ####[facility] [place] [address], [facility] Chloride [Moles/Vol] 102 mmol/L Normal 98-107 [facility] Comment on above: Order Comment: No: D o not add to previous draw Performed By: #### 4 1000, 45601, 88388 ####[facility] [place] [address], [facility] CO2 [Moles/Vol] 31 mmol/L Normal 21-31 [facility] Comment on above: Order Comment: No: D o not add to previous draw Performed By: #### 4 1000, 91553, 73790 ####[facility] [place] [address], [facility] Creatinine [Mass/Vol] 1.19 mg/dL Normal 0.70-1.30 [facility] Comment on above: Order Comment: No: D o not add to previous draw Performed By: #### 4 1000, 41841, 46611 ####[facility] [facility] [place] [address], [facility] eGFR- non- 59 ml/min/1.73sq m Abnormal >60 [facility] Comment on above: Order Comment: No: D o not add to previous draw Result Comment: Calc ulation may not be valid for patients over 70 years Performed By: #### 4 1000, 43469, 25855 ####[facility] [place] [address], [facility] GFR/1.73 sq M.predicted among blacks MDRD (S/P/Bld) [Vol rate/Area] mL/min/{1.73_m2} Normal >60 [facility] Comment on above: Order Comment: No: D o not add to previous draw Result Comment: Calc ulation may not be valid for patients over 70 years Performed By: #### 4 1000, 51985, 63540 ####[facility] [place] [address], [place] Glucose [Mass/Vol] 99 mg/dL Normal 70-100 [facility] Comment on above: Order Comment: No: D o not add to previous draw Performed By: #### 4 1000, 85326, 31662 ####[facility] [place] [address], [place] Potassium [Moles/Vol] 3.7 mmol/L Normal 3.5-5.1 [facility] Comment on above: Order Comment: No: D o not add to previous draw Performed By: #### 4 1000, 12409, 99971 ####[facility] [place] [address], [place] Protein [Mass/Vol] 6.6 g/dL Normal 6.0-8.3 [facility] Comment on above: Order Comment: No: D o not add to previous draw Performed By: #### 4 1000, 71057, 60215 ####[facility] [place] [address], [place] Sodium [Moles/Vol] 138 mmol/L Normal 136-145 [facility] Comment on above: Order Comment: No: D o not add to previous draw Performed By: #### 4 1000, 54704, 08318 ####[facility] [place] [address], [place] Urea nitrogen [Mass/Vol] 16 mg/dL Normal 7-25 [facility] Comment on above: Order Comment: No: D o not add to previous draw Performed By: #### 4 1000, 23054, 45554 ####[facility] [place] [address], [place] MAGNESIUM BLOODon 05-17-2021 Magnesium [Mass/Vol] 2.0 mg/dL Normal 1.9-2.7 [facility] Comment on above: Order Comment: No: D o not add to previous draw Performed By: #### 4 1000, 49089, 39443 ####[facility] [place] [address], [facility] PHOSPHORUS BLOODon Phosphate [Mass/Vol] 4.6 mg/dL Normal 2.5-5.0 [facility] Comment on above: Order Comment: No: D o not add to previous draw Performed By: #### 4 1000, 22961, 66984 ####[facility] [place] [address], [place] POC GLUCOSE LABon 05-17-2021 Glucose [Mass/Vol] 139 mg/dL High 70-100 [facility] Comment on above: Performed By: #### 8 5499 ####[facility] [place] [address], [place] Glucose [Mass/Vol] 100 mg/dL Normal 70-100 [facility] Comment on above: Performed By: #### 8 5499 ####[facility] [facility] [address], [place] Glucose [Mass/Vol] 122 mg/dL High 70-100 [facility] Comment on above: Performed By: #### 8 5499 ####[facility] [place] [address], [place] Glucose [Mass/Vol] 107 mg/dL High 70-100 [facility] Comment on above: Performed By: #### 8 5499 ####[facility] [place] [address], [place] PORTABLE CHEST 1 VIEWon 04-25 PORTABLE CHEST 1 VIEW Normal [facility] Comment on above: Order Comment: evalu ate for Atelectasis *ANAEROBIC CULTUREon 021 *ANAEROBIC CULTURE Clinical Report: (D) Specimen/Source: TISSUE/INTRAOP SPEC Collected: 05/16/2021 10:48 Status: Final Last Updated: 05/21/2021 08:50 (1) STERNAL TISSUE ISO (Final) No Anaerobes Isolated Day 5 Normal [facility] Comment on above: Order Comment: BRANDT AL TISSUE Performed By: #### 3 0312 ####[facility] *ANAEROBIC CULTURE Clinical Report: (D) Specimen/Source: SWAB/INTRAOP SPEC Collected: 05/16/2021 10:45 Status: Final Last Updated: 05/21/2021 08:50 (1) STERNAL WOUND ISO (Final) No Anaerobes Isolated Day 5 Normal [facility] Comment on above: Order Comment: BRANDT AL WOUND Performed By: #### 3 0312 ####[facility] *TISSUE CULTUREon 05-16-2021 *TISSUE CULTURE Normal [facility] Comment on above: Order Comment: BRANDT AL TISSUE Performed By: #### 3 0338 ####[facility] *WOUND CULTUREon 05-16-2021 *WOUND CULTURE Normal [facility] Comment on above: Order Comment: BRANDT AL WOUND Performed By: #### 3 0343 ####[facility] APTTon 05-16-2021 aPTT Coag (Bld) [Time] 32.6 s Normal 25.0-35.0 [facility] Comment on above: Order Comment: No: [...] THIS PURPOSE. Performed By: #### 5 7307, 39852 ####[facility] [place] [address], [facility] BASIC METABOLIC PANELon 09-2 Calcium [Mass/Vol] 8.5 mg/dL Low 8.6-10.3 [facility] Comment on above: Order Comment: No: D o not add to previous draw Performed By: #### 4 1000, , 47532 ####[facility] [place] [address], [facility] Chloride [Moles/Vol] 101 mmol/L Normal 98-107 [facility] Comment on above: Order Comment: No: D o not add to previous draw Performed By: #### 4 1000, , 05430 ####[facility] [place] [address], [facility] CO2 [Moles/Vol] 31 mmol/L Normal 21-31 [facility] Comment on above: Order Comment: No: D o not add to previous draw Performed By: #### 4 1000, , 40385 ####[facility] [place] [address], [facility] Creatinine [Mass/Vol] 0.66 mg/dL Low 0.70-1.30 [facility] Comment on above: Order Comment: No: D o not add to previous draw Performed By: #### 4 1000, , 38257 ####[facility] [place] [address], [place] GFR/1.73 sq M.predicted among blacks MDRD (S/P/Bld) [Vol rate/Area] mL/min/{1.73_m2} Normal >60 [facility] Comment on above: Order Comment: No: D o not add to previous draw Result Comment: Calc ulation may not be valid for patients over 70 years Performed By: #### 4 1000, , 72430 ####[facility] [place] [address], [facility] GFR/1.73 sq M.predicted among non-blacks MDRD (S/P/Bld) [Vol rate/Area] mL/min/{1.73_m2} Normal >60 [facility] Comment on above: Order Comment: No: D o not add to previous draw Result Comment: Calc ulation may not be valid for patients over 70 years Performed By: #### 4 1000, , [id number] ####[facility] [place] [address], [facility] Glucose [Mass/Vol] 117 mg/dL High 70-100 [facility] Comment on above: Order Comment: No: D o not add to previous draw Performed By: #### 4 1000, , 08748 ####[place] [address] [place] [address], [facility] Potassium [Moles/Vol] 4.1 mmol/L Normal 3.5-5.1 [facility] Comment on above: Order Comment: No: D o not add to previous draw Performed By: #### 4 1000, , 95585 ####[place] [address] [place] [address], [facility] Sodium [Moles/Vol] 136 mmol/L Normal 136-145 [facility] Comment on above: Order Comment: No: D o not add to previous draw Performed By: #### 4 1000, , 63813 ####[place] [address] [place] [address], [facility] Urea nitrogen [Mass/Vol] 11 mg/dL Normal 7-25 [facility] Comment on above: Order Comment: No: D o not add to previous draw Performed By: #### 4 1000, , 60375 ####[facility] [place] [address], [place] CBC COMPLETE BLOOD COUNTon 0 05-16-2021 Erythrocyte distribution width (RBC) [Ratio] 14.5 % Normal 11.5-15.0 [facility] Comment on above: Order Comment: No: D o not add to previous draw Performed By: #### 5 0608 ####[facility] Hematocrit (Bld) [Volume fraction] 30.5 % Low 39.0-50.0 [facility] Comment on above: Order Comment: No: D o not add to previous draw Performed By: #### 5 0608 ####[place] [address] Hemoglobin (Bld) [Mass/Vol] 9.5 g/dL Low 13.0-17.0 [facility] Comment on above: Order Comment: No: D o not add to previous draw Performed By: #### 5 0608 ####[address] MCH (RBC) [Entitic mass] 28.5 pg Normal 27.0-33.0 [facility] Comment on above: Order Comment: No: D o not add to previous draw Performed By: #### 5 0608 ####[address] MCHC (RBC) [Mass/Vol] 31.1 g/dL Low 32.0-35.0 [facility] Comment on above: Order Comment: No: D o not add to previous draw Performed By: #### 5 0608 ####[address] MCV (RBC) [Entitic vol] 91.6 fL Normal 82.0-98.0 [facility] Comment on above: Order Comment: No: D o not add to previous draw Performed By: #### 5 0608 ####[address] Nucleated RBC/100 WBC (Bld) [Ratio] 0 % Normal 0-0 [facility] Comment on above: Order Comment: No: D o not add to previous draw Performed By: #### 5 0608 ####[facility] [place] [address], [facility] PLAT CNT 353 10*3/uL Normal 150-400 [facility] Comment on above: Order Comment: No: D o not add to previous draw Performed By: #### 5 0608 ####[facility] [place] [address], [facility] RBC (Bld) [#/Vol] 3.33 10*6/uL Low 4.20-5.70 [facility] Comment on above: Order Comment: No: D o not add to previous draw Performed By: #### 5 0608 ####[facility] [place] [address], [facility] WBC (Bld) [#/Vol] 5.98 10*3/uL Normal 4.00-10.60 [facility] Comment on above: Order Comment: No: D o not add to previous draw Performed By: #### 5 0608 ####[place] [address] [place] [address], [facility] LACTATE BLOODon 05-16-2021 Lactate [Moles/Vol] 0.6 mmol/L Normal .5-2.2 [facility] Comment on above: Order Comment: No: D o not add to previous draw Performed By: #### 1 0054 ####[facility] [place] [address], [facility] Lactate [Moles/Vol] 0.8 mmol/L Normal .5-2.2 [facility] Comment on above: Order Comment: No: D o not add to previous draw Performed By: #### 1 0054 ####[facility] [place] [address], [facility] MAGNESIUM BLOODon 05-16-2021 Magnesium [Mass/Vol] 1.9 mg/dL Normal 1.9-2.7 [facility] Comment on above: Order Comment: No: D o not add to previous draw Performed By: #### 4 1000, 71737, 22652 ####[facility] [place] [address], [facility] OSMOLALITY BLOODon 1 Osmolality [Osmolality] 292 mosm/kg Normal 285-305 [facility] Comment on above: Order Comment: No: D o not add to previous draw Performed By: #### 3 9301, 29278 ####[facility] [place] [address], [facility] Osmolality [Osmolality] 297 mosm/kg Normal 285-305 [facility] Comment on above: Order Comment: No: D o not add to previous draw Performed By: #### 3 9301, 91638 ####[facility] [place] [address], [facility] PHOSPHORUS BLOODon 1 Phosphate [Mass/Vol] 4.3 mg/dL Normal 2.5-5.0 [facility] Comment on above: Order Comment: No: D o not add to previous draw Performed By: #### 4 1000, 11536, 32634 ####[facility] [place] [address], [facility] POC GLUCOSE LABon 05-16-2021 Glucose [Mass/Vol] 121 mg/dL High 70-100 [facility] Comment on above: Performed By: #### 8 5499 ####[facility] [place] [address], [facility] Glucose [Mass/Vol] 126 mg/dL High 70-100 [facility] Comment on above: Performed By: #### 8 5499 ####[facility] [place] [address], [facility] Glucose [Mass/Vol] 133 mg/dL High 70-100 [facility] Comment on above: Performed By: #### 8 5499 ####[facility] [facility] [place] [address], [facility] Glucose [Mass/Vol] 131 mg/dL High 70-100 [facility] Comment on above: Performed By: #### 8 5499 ####[facility] [place] [address], [facility] PORTABLE CHEST 1 VIEWon 04-25 PORTABLE CHEST 1 VIEW Normal [facility] Comment on above: Order Comment: Check NG Tube Position PORTABLE CHEST 1 VIEW Normal [facility] Comment on above: Order Comment: Evalu ate Atelectasis PROTHROMBIN TIMEon INR Coag (PPP) [Relative time] 1.15 {INR} Normal 0.91-1.16 [facility] Comment on above: Order Comment: No: [...] OF ACTION, CLINICALEFFECTIVENESS, AND OPTIMAL THERAPEUTIC RANGE. [id number];108:[id number]. Performed By: #### 5 7307, 23761 ####[facility] [facility].[address] PT Coag (PPP) [Time] 14.7 s Normal 12.3-14.8 [facility] Comment on above: Order Comment: No: D o not add to previous draw Result Comment: ALL RESULTS MUST BE INTERPRETED WITH RESPECT TO BLOOD DRAWING ARTIFACTOR DILUTION ERROR OF ANTICOAGULANT AT THE TIME OF SAMPLING. Performed By: #### 5 7307, 80644 ####[facility] [facility].[address] TRIGLYCERIDES BLOODon 2020 Triglyceride [Mass/Vol] 95 mg/dL Normal 40-149 [facility] Comment on above: Order Comment: No: D o not add to previous draw Result Comment: TRIG LYCERIDE REFERENCE RANGE:20 YEARS AND OLDER CARDIOVASCULAR RISKLESS THAN 150 mg/dl LOW [id number] TO 199 mg/dl BORDERLINE [id number] mg/dl AND GREATER HIGH RISK Performed By: #### 3 9301, 39318 ####[facility] [facility].[address] Triglyceride [Mass/Vol] 98 mg/dL Normal 40-149 [facility] Comment on above: Order Comment: No: D o not add to previous draw Result Comment: TRIG LYCERIDE REFERENCE RANGE:20 YEARS AND OLDER CARDIOVASCULAR RISKLESS THAN 150 mg/dl LOW [id number] TO 199 mg/dl BORDERLINE [id number] mg/dl AND GREATER HIGH RISK Performed By: #### 3 9301, 05990 ####[facility] [facility].[address] *BLOOD CULTUREon 05-15-2021 *BLOOD CULTURE Clinical Report: (D) Specimen: BLOOD CULTURE Collected: 05/15/2021 11:35 Status: Final Last Updated: 05/20/2021 14:11 (1) Prior to antibiotic administration CULT RES (Final) No Growth Day 5 Normal [facility] Comment on above: Order Comment: Prior to antibiotic administration Performed By: #### 3 0313 ####[facility] [facility].[address] APTTon 05-15-2021 aPTT Coag (Bld) [Time] 30.4 s Normal 25.0-35.0 [facility] Comment on above: Result Comment: ALL [...] THIS PURPOSE. Performed By: #### 5 7307, 42380 ####[address] ARTERIAL BLOOD GAS W/COOXon 05-15-2021 BASE EXCESS 2 mmol/L Normal -2-3 [facility] Comment on above: Order Comment: RESUL TS CHECKED AND CALLED. ACCURATELY READ BACK BY [facility] ED CHARGE. Performed By: #### 4 0055 ####[place] [address] COHB 2.3 % High 0.0-1.5 [facility] Comment on above: Order Comment: RESUL TS CHECKED AND CALLED. ACCURATELY READ BACK BY [facility] ED CHARGE. Performed By: #### 4 0055 ####[address] DELIVERY SYSTEMS [place] Normal [facility] Comment on above: Order Comment: RESUL TS CHECKED AND CALLED. ACCURATELY READ BACK BY [facility] ED CHARGE. Performed By: #### 4 0055 ####[address] HCO3 (Bld) [Moles/Vol] 29 mmol/L High 21-28 [facility] Comment on above: Order Comment: RESUL TS CHECKED AND CALLED. ACCURATELY READ BACK BY [facility] ED CHARGE. Performed By: #### 4 0055 ####[facility] [place] [address], [facility] LPM 5.0 LPM Normal [facility] Comment on above: Order Comment: RESUL TS CHECKED AND CALLED. ACCURATELY READ BACK BY [facility] ED CHARGE. Performed By: #### 4 0055 ####[facility] [place] [address], [facility] METHB 1.1 % Normal 0.0-1.5 [facility] Comment on above: Order Comment: RESUL TS CHECKED AND CALLED. ACCURATELY READ BACK BY [facility] ED CHARGE. Performed By: #### 4 0055 ####[facility] [facility] [place] [address], [facility] MODALITY NC Normal [facility] Comment on above: Order Comment: RESUL TS CHECKED AND CALLED. ACCURATELY READ BACK BY [facility] ED CHARGE. Performed By: #### 4 0055 ####[facility] [facility].[address] Oxygen (Bld) [Partial pressure] 83 mm[Hg] Normal 83-108 [facility] Comment on above: Order Comment: RESUL TS CHECKED AND CALLED. ACCURATELY READ BACK BY [facility] ED CHARGE. Performed By: #### 4 0055 ####[facility] Oxygen saturation in Blood 94.8 % Normal 94.0-97.0 [facility] Comment on above: Order Comment: RESUL TS CHECKED AND CALLED. ACCURATELY READ BACK BY [facility] ED CHARGE. Performed By: #### 4 0055 ####[facility] [place] [address], [facility] PCO2 58 mmHg Critically high 35-45 [facility] Comment on above: Order Comment: RESUL TS CHECKED AND CALLED. ACCURATELY READ BACK BY [facility] ED CHARGE. Performed By: #### 4 0055 ####[facility] pH (Bld) 7.31 [pH] Low 7.35-7.45 [facility] Comment on above: Order Comment: RESUL TS CHECKED AND CALLED. ACCURATELY READ BACK BY [facility] ED CHARGE. Performed By: #### 4 0055 ####[facility] THB 10.2 g/dL Low 12.0-16.3 [facility] Comment on above: Order Comment: RESUL TS CHECKED AND CALLED. ACCURATELY READ BACK BY [facility] ED CHARGE. Performed By: #### 4 0055 ####[place] [address] [facility].[address] BNP (B-TYPE NATRIURETIC PEPT MAX)on 05-15-2021 Natriuretic peptide B (Bld) [Mass/Vol] 136 pg/mL High 0-100 [facility] Comment on above: Order Comment: Yes: Add to Previous draw if able Result Comment: Give n the appropriate clinical setting a BNP result of >100 pg/mLindicates congestive heart failure. Performed By: #### 8 5123 ####[place] [address] CBC W/DIFFon 05-15-2021 ABS IMM GRANS 0.0 10*3/uL Normal 0.0-0.2 The [facility] Comment on above: Performed By: #### 5 3 ####[facility] ABS NEUTROPHILS 5.0 10*3/uL Normal 1.6-7.6 [facility] Comment on above: Performed By: #### 5 0103 ####[place] [address] [facility].[address] Basophils (Bld) [#/Vol] 0.0 10*3/uL Normal 0.0-0.2 [facility] Comment on above: Performed By: #### 5 0103 ####[facility] Basophils/100 WBC (Bld) 0.6 % Normal 0.0-1.0 [facility] Comment on above: Performed By: #### 5 0103 ####[address] Eosinophils (Bld) [#/Vol] 0.1 10*3/uL Normal 0.0-0.5 [facility] Comment on above: Performed By: #### 5 0103 ####[address] Eosinophils/100 WBC (Bld) 0.7 % Normal 0.0-6.0 [facility] Comment on above: Performed By: #### 3 ####[address] Erythrocyte distribution width (RBC) [Ratio] 14.5 % Normal 11.5-15.0 [facility] Comment on above: Performed By: #### 5 3 ####[address] Hematocrit (Bld) [Volume fraction] 32.5 % Low 39.0-50.0 [facility] Comment on above: Performed By: #### 5 3 ####[address] Hemoglobin (Bld) [Mass/Vol] 10.3 g/dL Low 13.0-17.0 [facility] Comment on above: Performed By: #### 5 0103 ####[address] IMMATURE GRANS 0.6 % Normal 0.0-1.0 [facility] Comment on above: Performed By: #### 5 3 ####[address] [place] [address], [place] Lymphocytes (Bld) [#/Vol] 1.1 10*3/uL Low 1.2-4.0 [facility] Comment on above: Performed By: #### 5 3 ####[address] Lymphocytes/100 WBC (Bld) 15.9 % Low 20.0-45.0 [facility] Comment on above: Performed By: #### 102 ####[address] MCH (RBC) [Entitic mass] 28.8 pg Normal 27.0-33.0 [facility] Comment on above: Performed By: #### 102 ####[address] MCHC (RBC) [Mass/Vol] 31.7 g/dL Low 32.0-35.0 [facility] Comment on above: Performed By: #### 5 3 ####[address] MCV (RBC) [Entitic vol] 90.8 fL Normal 82.0-98.0 [facility] Comment on above: Performed By: #### 5 3 ####[address] Monocytes (Bld) [#/Vol] 0.8 10*3/uL Normal 0.1-1.0 [facility] Comment on above: Performed By: #### 5 3 ####[address] MONOS 11.2 % Normal 5.0-12.0 [facility] Comment on above: Performed By: #### 5 3 ####[address] [place] [address], [place] Neutrophils/100 WBC (Bld) 71.0 % Normal 40.0-72.0 [facility] Comment on above: Performed By: #### 5 0103 ####[facility] [facility].[address] Nucleated RBC/100 WBC (Bld) [Ratio] 0 % Normal 0-0 [facility] Comment on above: Performed By: #### 5 0103 ####[facility] PLAT CNT 376 10*3/uL Normal 150-400 [facility] Comment on above: Performed By: #### 5 0103 ####[address] RBC (Bld) [#/Vol] 3.58 10*6/uL Low 4.20-5.70 [facility] Comment on above: Performed By: #### 5 0103 ####[address] WBC (Bld) [#/Vol] 7.03 10*3/uL Normal 4.00-10.60 [facility] Comment on above: Performed By: #### 5 0103 ####[address] COMP METABOLIC PANELon 05-15 Albumin [Mass/Vol] 3.2 g/dL Low 3.5-5.7 [facility] Comment on above: Performed By: #### 4 1000, 97416, 64050, 63448 ####[facility] [facility].[address] ALKALINE PHOSPH 84 IU/L Normal 34-104 [facility] Comment on above: Performed By: #### 4 1000, 82052, 41877, 31134 ####[facility] [place] [address], [place] ALT [Catalytic activity/Vol] 11 U/L Normal 7-52 [facility] Comment on above: Performed By: #### 4 1000, 46191, 26193, 16586 ####[facility] [place] [address], [place] AST [Catalytic activity/Vol] 12 U/L Low 13-39 [facility] Comment on above: Performed By: #### 4 1000, 39306, 38804, 49958 ####[facility] [place] [address], [place] Bilirubin [Mass/Vol] 0.9 mg/dL Normal 0.3-1.0 [facility] Comment on above: Performed By: #### 4 1000, 55713, 94369, 97005 ####[facility] [place] [address], [place] Calcium [Mass/Vol] 8.3 mg/dL Low 8.6-10.3 [facility] Comment on above: Performed By: #### 4 1000, 08894, 54839, 31714 ####[facility] [place] [address], [place] Chloride [Moles/Vol] 101 mmol/L Normal 98-107 [facility] Comment on above: Performed By: #### 4 1000, 50197, 02896, 20438 ####[facility] [place] [address], [place] CO2 [Moles/Vol] 30 mmol/L Normal 21-31 [facility] Comment on above: Performed By: #### 4 1000, 15628, 75151, 96448 ####[facility] [place] [address], [place] Creatinine [Mass/Vol] 0.92 mg/dL Normal 0.70-1.30 [facility] Comment on above: Performed By: #### 4 1000, 33220, 27621, 36953 ####[facility] [place] [address], [facility] GFR/1.73 sq M.predicted among blacks MDRD (S/P/Bld) [Vol rate/Area] mL/min/{1.73_m2} Normal >60 [facility] Comment on above: Result Comment: Calc ulation may not be valid for patients over 70 years Performed By: #### 4 1000, 72320, 81070, 53494 ####[facility] [place] [address], [facility] GFR/1.73 sq M.predicted among non-blacks MDRD (S/P/Bld) [Vol rate/Area] mL/min/{1.73_m2} Normal >60 [facility] Comment on above: Result Comment: Calc ulation may not be valid for patients over 70 years Performed By: #### 4 1000, 43999, 00586, 26440 ####[facility] [place] [address], [facility] Glucose [Mass/Vol] 138 mg/dL High 70-100 [facility] Comment on above: Performed By: #### 4 1000, 72146, 78609, 43652 ####[facility] [place] [address], [place] Potassium [Moles/Vol] 4.1 mmol/L Normal 3.5-5.1 [facility] Comment on above: Performed By: #### 4 1000, 87524, 23576, 90912 ####[facility] [place] [address], [place] Protein [Mass/Vol] 7.4 g/dL Normal 6.0-8.3 [facility] Comment on above: Performed By: #### 4 1000, 24628, 73027, 23607 ####[facility] [place] [address], [facility] Sodium [Moles/Vol] 136 mmol/L Normal 136-145 [facility] Comment on above: Performed By: #### 4 1000, 10957, 25400, 18795 ####[facility] [place] [address], [facility] Urea nitrogen [Mass/Vol] 8 mg/dL Normal 7-25 [facility] Comment on above: Performed By: #### 4 1000, 97616, 30125, 58028 ####[facility] [id number], [facility] LACTATE BLOODon 05-15-2021 Lactate [Moles/Vol] 0.7 mmol/L Normal .5-2.2 [facility] Comment on above: Order Comment: Repea t Lactate in 4 hours Performed By: #### 1 0054 ####[facility] [place] [address], [facility] MAGNESIUM BLOODon 05-15-2021 Magnesium [Mass/Vol] 2.0 mg/dL Normal 1.9-2.7 [facility] Comment on above: Performed By: #### 4 1000, 82967, 67592, 64819 ####[facility] [place] [address], [facility] PHOSPHORUS BLOODon Phosphate [Mass/Vol] 6.0 mg/dL High 2.5-5.0 [facility] Comment on above: Performed By: #### 4 1000, 58624, 97912, 30627 ####[facility] [place] [address], [place] POC GLUCOSE LABon 05-15-2021 Glucose [Mass/Vol] 225 mg/dL High 70-100 [facility] Comment on above: Performed By: #### 8 5499 ####[facility] [place] [address], [facility] POC SARS COV2 ANTIGEN NEGATI VEon 05-15-2021 POC SARS COV2 ANTIGEN NEG Negative Normal NEGATIVE [facility] Comment on above: Result Comment: Nega [...] of clinicalsigns and symptoms consistent with COVID-19.The [employer] COVID-19 Ag Card is a lateral flow immunoassay intended forthe qualitative detection of nucleocapsid protein antigen wdorEPQD-RmM-2 in direct nasal swabs from individuals within [...] Certificate ofAccreditation. Performed By: #### 3 1977 ####[facility] [facility].[address] PORTABLE CHEST 1 VIEWon 04-25 PORTABLE CHEST 1 VIEW Normal [facility] Comment on above: Order Comment: Evalu ate for Infiltrates, hypoxia, infected sternotomy site PROTHROMBIN TIMEon INR Coag (PPP) [Relative time] 1.07 {INR} Normal 0.91-1.16 [facility] Comment on above: Result Comment: ACCC P RECOMMENDED INR FOR WARFARIN THERAPY CONDITION INRPROPHYLAXIS OF VENOUS THROMBOSIS 2-3(HIGH-RISK SURGERY)TREATMENT OF VENOUS THROMBOSIS 2-3TREATMENT OF PULMONARY EMBOLISM 2-3PREVENTION OF SYSTEMIC EMBOLISM: 2-3 ACUTE MYOCARDIAL INFARCTION TISSUE HEART VALVES VALVULAR HEART DISEASE ATRIAL FIBRILLATION RECURRENT SYSTEMIC EMBOLISMMECHANICAL HEART VALVE 2.5-3.5 FROM: ORAL ANTICOAGULANTS. MECHANISM OF ACTION, CLINICALEFFECTIVENESS, AND OPTIMAL THERAPEUTIC RANGE. [id number];[id number]. Performed By: #### 5 7307, 44811 ####[facility] PT Coag (PPP) [Time] 13.9 s Normal 12.3-14.8 [facility] Comment on above: Result Comment: ALL RESULTS MUST BE INTERPRETED WITH RESPECT TO BLOOD DRAWING ARTIFACTOR DILUTION ERROR OF ANTICOAGULANT AT THE TIME OF SAMPLING. Performed By: #### 5 7307, 51659 ####[facility] TROPONIN-Ion 05-15-2021 Troponin I.cardiac [Mass/Vol] 0.01 ng/mL Normal 0.00-0.04 [facility] Comment on above: Result Comment: REFE RENCE RANGES: 0.00 - 0.04 ng/ml NORMAL 0.05 - 0.50 ng/ml INDETERMINATE > 0.50 ng/ml CONSISTENT WITH AN M.I. Performed By: #### 4 1000, 18153, 12826, 17792 ####[facility] TYPE AND SCREENon 05-15-2021 ABO INTERPRETATION O Normal [facility] Comment on above: Performed By: #### 6 1116 ####[facility] [place] [address], [place] RH INTERPRETATION Positive Normal [facility] Comment on above: Performed By: #### 6 2586 ####[facility] [place] [address], [place] POC GLUCOSE LABon 04-15-2021 Glucose [Mass/Vol] 143 mg/dL High 70-100 [facility] Comment on above: Performed By: #### 8 5499 ####[facility] [place] [address], [place] Glucose [Mass/Vol] 241 mg/dL High 70-100 [facility] Comment on above: Performed By: #### 8 5499 ####[facility] [place] [address], [place] Glucose [Mass/Vol] 121 mg/dL High 70-100 [facility] Comment on above: Performed By: #### 8 5499 ####[facility] [place] [address], [facility] POC SARS COV2 ANTIGEN NEGATI VEon 04-15-2021 POC SARS COV2 ANTIGEN NEG Negative Normal NEGATIVE [facility] Comment on above: Result Comment: Nega [...] of clinicalsigns and symptoms consistent with COVID-19.The Vidapp COVID-19 Ag Card is a lateral flow immunoassay intended forthe qualitative detection of nucleocapsid protein antigen [id number] in direct nasal swabs from individuals within [...] Certificate ofAccreditation. Performed By: #### 3 1977 ####[facility] BASIC METABOLIC PANELon 03-25 Calcium [Mass/Vol] 8.7 mg/dL Normal 8.6-10.3 [facility] Comment on above: Order Comment: No: D o not add to previous draw Performed By: #### 0 0071, 29711 ####[address] [place] [address], [facility] Chloride [Moles/Vol] 95 mmol/L Low 98-107 [facility] Comment on above: Order Comment: No: D o not add to previous draw Performed By: #### 0 0071, 30241 ####[address] [place] [address], [facility] CO2 [Moles/Vol] 27 mmol/L Normal 21-31 [facility] Comment on above: Order Comment: No: D o not add to previous draw Performed By: #### 0 0071, 52094 ####[address] Creatinine [Mass/Vol] 0.80 mg/dL Normal 0.70-1.30 [facility] Comment on above: Order Comment: No: D o not add to previous draw Performed By: #### 0 0071, 35336 ####[address] [place] [address], [facility] GFR/1.73 sq M.predicted among blacks MDRD (S/P/Bld) [Vol rate/Area] mL/min/{1.73_m2} Normal >60 [facility] Comment on above: Order Comment: No: D o not add to previous draw Result Comment: Calc ulation may not be valid for patients over 70 years Performed By: #### 0 0071, 37503 ####[facility] [place] [address], [facility] GFR/1.73 sq M.predicted among non-blacks MDRD (S/P/Bld) [Vol rate/Area] mL/min/{1.73_m2} Normal >60 [facility] Comment on above: Order Comment: No: D o not add to previous draw Result Comment: Calc ulation may not be valid for patients over 70 years Performed By: #### 0 0071, 55430 ####[facility] [place] [address], [facility] Glucose [Mass/Vol] 108 mg/dL High 70-100 [facility] Comment on above: Order Comment: No: D o not add to previous draw Performed By: #### 0 0071, 01748 ####[facility] [place] [address], [facility] Potassium [Moles/Vol] 3.6 mmol/L Normal 3.5-5.1 [facility] Comment on above: Order Comment: No: D o not add to previous draw Performed By: #### 0 0071, 26468 ####[facility] [place] [address], [place] Sodium [Moles/Vol] 132 mmol/L Low 136-145 [facility] Comment on above: Order Comment: No: D o not add to previous draw Performed By: #### 0 0071, 57455 ####[facility] [place] [address], [place] Urea nitrogen [Mass/Vol] 38 mg/dL High 7-25 [facility] Comment on above: Order Comment: No: D o not add to previous draw Performed By: #### 0 0071, 85400 ####[facility]3000 [facility].[address] CBC COMPLETE BLOOD COUNTon 04-14-2021 Erythrocyte distribution width (RBC) [Ratio] 14.1 % Normal 11.5-15.0 [facility] Comment on above: Order Comment: No: D o not add to previous draw Performed By: #### 5 0608 ####[facility] Hematocrit (Bld) [Volume fraction] 33.5 % Low 39.0-50.0 [facility] Comment on above: Order Comment: No: D o not add to previous draw Performed By: #### 5 0608 ####[address] Hemoglobin (Bld) [Mass/Vol] 11.3 g/dL Low 13.0-17.0 [facility] Comment on above: Order Comment: No: D o not add to previous draw Performed By: #### 5 0608 ####[address] MCH (RBC) [Entitic mass] 30.2 pg Normal 27.0-33.0 [facility] Comment on above: Order Comment: No: D o not add to previous draw Performed By: #### 5 0608 ####[facility] [place] [address].[address] MCHC (RBC) [Mass/Vol] 33.7 g/dL Normal 32.0-35.0 [facility] Comment on above: Order Comment: No: D o not add to previous draw Performed By: #### 5 0608 ####[facility] [place] [address], [facility] MCV (RBC) [Entitic vol] 89.6 fL Normal 82.0-98.0 [facility] Comment on above: Order Comment: No: D o not add to previous draw Performed By: #### 5 0608 ####[facility] [place] [address], [facility] Nucleated RBC/100 WBC (Bld) [Ratio] 0 % Normal 0-0 [facility] Comment on above: Order Comment: No: D o not add to previous draw Performed By: #### 5 0608 ####[facility] [place] [address], [facility] PLAT CNT 314 10*3/uL Normal 150-400 [facility] Comment on above: Order Comment: No: D o not add to previous draw Performed By: #### 5 0608 ####[facility] [place] [address], [facility] RBC (Bld) [#/Vol] 3.74 10*6/uL Low 4.20-5.70 [facility] Comment on above: Order Comment: No: D o not add to previous draw Performed By: #### 5 0608 ####[facility] [place] [address], [facility] WBC (Bld) [#/Vol] 10.84 10*3/uL High 4.00-10.60 [facility] Comment on above: Order Comment: No: D o not add to previous draw Performed By: #### 5 0608 ####[facility] [place] [address], [facility] MAGNESIUM BLOODon 04-14-2021 Magnesium [Mass/Vol] 1.9 mg/dL Normal 1.9-2.7 [facility] Comment on above: Order Comment: No: D o not add to previous draw Performed By: #### 0 0071, 89956 ####[facility] [place] [address], [facility] POC GLUCOSE LABon 04-14-2021 Glucose [Mass/Vol] 168 mg/dL High 70-100 [facility] Comment on above: Performed By: #### 8 5499 ####[facility] [place] [address], [place] Glucose [Mass/Vol] 133 mg/dL High 70-100 [facility] Comment on above: Performed By: #### 8 5499 ####[facility] [facility] [place] [address], [place] Glucose [Mass/Vol] 167 mg/dL High 70-100 [facility] Comment on above: Performed By: #### 8 5499 ####[facility] [place] [address], [place] Glucose [Mass/Vol] 146 mg/dL High 70-100 [facility] Comment on above: Performed By: #### 8 5499 ####[facility] [place] [address], [place] Glucose [Mass/Vol] 152 mg/dL High 70-100 [facility] Comment on above: Performed By: #### 8 5499 ####[facility] [place] [address], [facility] PORTABLE CHEST 1 VIEWon 03-25 PORTABLE CHEST 1 VIEW Normal [facility] Comment on above: Order Comment: evalu ate Atelectasis BASIC METABOLIC PANELon 03-25 Calcium [Mass/Vol] 9.1 mg/dL Normal 8.6-10.3 [facility] Comment on above: Order Comment: No: D o not add to previous draw Performed By: #### 1 0070, 26745 ####[facility] [place] [address], [place] Chloride [Moles/Vol] 94 mmol/L Low 98-107 [facility] Comment on above: Order Comment: No: D o not add to previous draw Performed By: #### 1 69, 93040 ####[facility] [place] [address], [facility] CO2 [Moles/Vol] 27 mmol/L Normal 21-31 [facility] Comment on above: Order Comment: No: D o not add to previous draw Performed By: #### 1 0, 31540 ####[facility] [place] [address], [facility] Creatinine [Mass/Vol] 0.87 mg/dL Normal 0.70-1.30 [facility] Comment on above: Order Comment: No: D o not add to previous draw Performed By: #### 1 69, 90626 ####[facility] [place] [address], [facility] GFR/1.73 sq M.predicted among blacks MDRD (S/P/Bld) [Vol rate/Area] mL/min/{1.73_m2} Normal >60 [facility] Comment on above: Order Comment: No: D o not add to previous draw Result Comment: Calc ulation may not be valid for patients over 70 years Performed By: #### 1 69, 39872 ####[facility] [place] [address], [facility] GFR/1.73 sq M.predicted among non-blacks MDRD (S/P/Bld) [Vol rate/Area] mL/min/{1.73_m2} Normal >60 [facility] Comment on above: Order Comment: No: D o not add to previous draw Result Comment: Calc ulation may not be valid for patients over 70 years Performed By: #### 1 0, 78799 ####[facility] [facility] [place] [address], [facility] Glucose [Mass/Vol] 125 mg/dL High 70-100 [facility] Comment on above: Order Comment: No: D o not add to previous draw Performed By: #### 1 69, 04144 ####[facility] [place] [address], [facility] Potassium [Moles/Vol] 3.2 mmol/L Low 3.5-5.1 [facility] Comment on above: Order Comment: No: D o not add to previous draw Performed By: #### 1 69, 05714 ####[facility] [place] [address], [facility] Sodium [Moles/Vol] 132 mmol/L Low 136-145 [facility] Comment on above: Order Comment: No: D o not add to previous draw Performed By: #### 1 69, 34132 ####[facility] [place] [address], [facility] Urea nitrogen [Mass/Vol] 27 mg/dL High 7-25 [facility] Comment on above: Order Comment: No: D o not add to previous draw Performed By: #### 1 69, 90655 ####[facility] [facility] CBC COMPLETE BLOOD COUNTon 0 - Erythrocyte distribution width (RBC) [Ratio] 14.2 % Normal 11.5-15.0 [facility] Comment on above: Order Comment: No: D o not add to previous draw Performed By: #### 5 0608 ####[facility] [place] [address], [facility] Hematocrit (Bld) [Volume fraction] 35.2 % Low 39.0-50.0 [facility] Comment on above: Order Comment: No: D o not add to previous draw Performed By: #### 5 0608 ####[facility] [place] [address], [facility] Hemoglobin (Bld) [Mass/Vol] 11.9 g/dL Low 13.0-17.0 [facility] Comment on above: Order Comment: No: D o not add to previous draw Performed By: #### 5 0608 ####[facility]3000 [facility].[address] MCH (RBC) [Entitic mass] 30.6 pg Normal 27.0-33.0 [facility] Comment on above: Order Comment: No: D o not add to previous draw Performed By: #### 5 0608 ####[facility] MCHC (RBC) [Mass/Vol] 33.8 g/dL Normal 32.0-35.0 [facility] Comment on above: Order Comment: No: D o not add to previous draw Performed By: #### 5 0608 ####[address] MCV (RBC) [Entitic vol] 90.5 fL Normal 82.0-98.0 [facility] Comment on above: Order Comment: No: D o not add to previous draw Performed By: #### 5 0608 ####[address] Nucleated RBC/100 WBC (Bld) [Ratio] 0 % Normal 0-0 [facility] Comment on above: Order Comment: No: D o not add to previous draw Performed By: #### 5 0608 ####[address] PLAT CNT 285 10*3/uL Normal 150-400 [facility] Comment on above: Order Comment: No: D o not add to previous draw Performed By: #### 5 0608 ####[address] RBC (Bld) [#/Vol] 3.89 10*6/uL Low 4.20-5.70 [facility] Comment on above: Order Comment: No: D o not add to previous draw Performed By: #### 5 0608 ####[facility] [place] [address], [facility] WBC (Bld) [#/Vol] 9.92 10*3/uL Normal 4.00-10.60 [facility] Comment on above: Order Comment: No: D o not add to previous draw Performed By: #### 5 0608 ####[facility] [place] [address], [facility] MAGNESIUM BLOODon 04-13-2021 Magnesium [Mass/Vol] 1.9 mg/dL Normal 1.9-2.7 [facility] Comment on above: Order Comment: No: D o not add to previous draw Performed By: #### 1 0070, 79370 ####[facility] [place] [address], [facility] POC GLUCOSE LABon 04-13-2021 Glucose [Mass/Vol] 106 mg/dL High 70-100 [facility] Comment on above: Performed By: #### 8 5499 ####[facility] [place] [address], [facility] Glucose [Mass/Vol] 185 mg/dL High 70-100 [facility] Comment on above: Performed By: #### 8 5499 ####[facility] [place] [address], [facility] Glucose [Mass/Vol] 136 mg/dL High 70-100 [facility] Comment on above: Performed By: #### 8 5499 ####[facility] [place] [address], [facility] PORTABLE CHEST 1 VIEWon 03-25 PORTABLE CHEST 1 VIEW Normal [facility] Comment on above: Order Comment: evalu ate for Atelectasis BASIC METABOLIC PANELon 03-25 Calcium [Mass/Vol] 8.3 mg/dL Low 8.6-10.3 [facility] Comment on above: Order Comment: No: D o not add to previous draw Performed By: #### 1 69, 15755 ####[facility] [place] [address], [facility] Chloride [Moles/Vol] 102 mmol/L Normal 98-107 [facility] Comment on above: Order Comment: No: D o not add to previous draw Performed By: #### 1 69, 56267 ####[facility] [place] [address], [facility] CO2 [Moles/Vol] 25 mmol/L Normal 21-31 [facility] Comment on above: Order Comment: No: D o not add to previous draw Performed By: #### 1 69, 27651 ####[facility] [place] [address], [facility] Creatinine [Mass/Vol] 0.67 mg/dL Low 0.70-1.30 [facility] Comment on above: Order Comment: No: D o not add to previous draw Performed By: #### 1 69, 35876 ####[facility] [place] [address], [facility] GFR/1.73 sq M.predicted among blacks MDRD (S/P/Bld) [Vol rate/Area] mL/min/{1.73_m2} Normal >60 [facility] Comment on above: Order Comment: No: D o not add to previous draw Result Comment: Calc ulation may not be valid for patients over 70 years Performed By: #### 1 69, 44997 ####[facility] [place] [address], [facility] GFR/1.73 sq M.predicted among non-blacks MDRD (S/P/Bld) [Vol rate/Area] mL/min/{1.73_m2} Normal >60 [facility] Comment on above: Order Comment: No: D o not add to previous draw Result Comment: Calc ulation may not be valid for patients over 70 years Performed By: #### 1 69, 55112 ####[facility] [place] [address], [place] Glucose [Mass/Vol] 116 mg/dL High 70-100 [facility] Comment on above: Order Comment: No: D o not add to previous draw Performed By: #### 1 69, 00170 ####[facility] [place] [address], [place] Potassium [Moles/Vol] 4.0 mmol/L Normal 3.5-5.1 [facility] Comment on above: Order Comment: No: D o not add to previous draw Performed By: #### 1 69, 61290 ####[facility] [place] [address], [place] Sodium [Moles/Vol] 134 mmol/L Low 136-145 [facility] Comment on above: Order Comment: No: D o not add to previous draw Performed By: #### 1 69, 89824 ####[facility] [place] [address], [place] Urea nitrogen [Mass/Vol] 22 mg/dL Normal 7-25 [facility] Comment on above: Order Comment: No: D o not add to previous draw Performed By: #### 1 69, 55334 ####[facility] [place] [address], [place] CBC COMPLETE BLOOD COUNTon 0 - Erythrocyte distribution width (RBC) [Ratio] 14.6 % Normal 11.5-15.0 [facility] Comment on above: Order Comment: No: D o not add to previous draw Performed By: #### 5 0608 ####[facility] Hematocrit (Bld) [Volume fraction] 33.1 % Low 39.0-50.0 [facility] Comment on above: Order Comment: No: D o not add to previous draw Performed By: #### 5 0608 ####[facility] [facility] Hemoglobin (Bld) [Mass/Vol] 10.6 g/dL Low 13.0-17.0 [facility] Comment on above: Order Comment: No: D o not add to previous draw Performed By: #### 5 0608 ####[facility] [place] [address] MCH (RBC) [Entitic mass] 30.0 pg Normal 27.0-33.0 [facility] Comment on above: Order Comment: No: D o not add to previous draw Performed By: #### 5 0608 ####[facility] [facility].[address] MCHC (RBC) [Mass/Vol] 32.0 g/dL Normal 32.0-35.0 [facility] Comment on above: Order Comment: No: D o not add to previous draw Performed By: #### 5 0608 ####[address] MCV (RBC) [Entitic vol] 93.8 fL Normal 82.0-98.0 [facility] Comment on above: Order Comment: No: D o not add to previous draw Performed By: #### 5 0608 ####[facility] [facility].[address] Nucleated RBC/100 WBC (Bld) [Ratio] 0 % Normal 0-0 [facility] Comment on above: Order Comment: No: D o not add to previous draw Performed By: #### 5 0608 ####[facility] [place] [address], [facility] PLAT CNT 213 10*3/uL Normal 150-400 [facility] Comment on above: Order Comment: No: D o not add to previous draw Performed By: #### 5 0608 ####[facility] [place] [address], [facility] RBC (Bld) [#/Vol] 3.53 10*6/uL Low 4.20-5.70 [facility] Comment on above: Order Comment: No: D o not add to previous draw Performed By: #### 5 0608 ####[facility] [place] [address], [facility] WBC (Bld) [#/Vol] 7.64 10*3/uL Normal 4.00-10.60 [facility] Comment on above: Order Comment: No: D o not add to previous draw Performed By: #### 5 0608 ####[facility] [place] [address], [facility] MAGNESIUM BLOODon 04-12-2021 Magnesium [Mass/Vol] 1.9 mg/dL Normal 1.9-2.7 [facility] Comment on above: Order Comment: No: D o not add to previous draw Performed By: #### 1 0070, 08760 ####[facility] [place] [address], [facility] POC GLUCOSE LABon 04-12-2021 Glucose [Mass/Vol] 126 mg/dL High 70-100 [facility] Comment on above: Performed By: #### 8 [id number] ####[facility] [place] [address], [facility] Glucose [Mass/Vol] 131 mg/dL High 70-100 [facility] Comment on above: Performed By: #### 8 5499 ####[facility] [facility].[address] Glucose [Mass/Vol] 167 mg/dL High 70-100 [facility] Comment on above: Performed By: #### 8 [id number] ####[facility] [facility] POC SARS COV2 ANTIGEN NEGATI CHUCKYon 04-12-2021 POC SARS COV2 ANTIGEN NEG Negative Normal NEGATIVE [facility] Comment on above: Result Comment: Nega [...] of clinicalsigns and symptoms consistent with COVID-19.The [employer] COVID-19 Ag Card is a lateral flow immunoassay intended forthe qualitative detection of nucleocapsid protein antigen [id number] in direct nasal swabs from individuals within [...] Certificate ofAccreditation. Performed By: #### 3 1977 ####[facility].[address] POC SARS COV2 ANTIGEN NEG Negative Normal NEGATIVE [facility] Comment on above: Result Comment: Nega [...] of clinicalsigns and symptoms consistent with COVID-19.The [employer]W COVID-19 Ag Card is a lateral flow immunoassay intended forthe qualitative detection of nucleocapsid protein antigen [id number] in direct nasal swabs from individuals within [...] Certificate ofAccreditation. Performed By: #### 3 1977 ####[facility].[address] PORTABLE CHEST 1 VIEWon 03-25 PORTABLE CHEST 1 VIEW Normal [facility] Comment on above: Order Comment: evalu ate for Atelectasis BASIC METABOLIC PANELon 03-24 Calcium [Mass/Vol] 7.9 mg/dL Low 8.6-10.3 [facility] Comment on above: Order Comment: No: D o not add to previous draw Performed By: #### 4 999, 01486, 42178 ####[facility] [place] [address], [facility] Chloride [Moles/Vol] 100 mmol/L Normal 98-107 [facility] Comment on above: Order Comment: No: D o not add to previous draw Performed By: #### 4 999, 07436, 16409 ####[facility] [place] [address], [facility] CO2 [Moles/Vol] 27 mmol/L Normal 21-31 [facility] Comment on above: Order Comment: No: D o not add to previous draw Performed By: #### 4 999, 78543, 14135 ####[facility] [place] [address], [facility] Creatinine [Mass/Vol] 0.80 mg/dL Normal 0.70-1.30 [facility] Comment on above: Order Comment: No: D o not add to previous draw Performed By: #### 4 1000, 79798, 05842 ####[facility] [facility] [place] [address], [facility] GFR/1.73 sq M.predicted among blacks MDRD (S/P/Bld) [Vol rate/Area] mL/min/{1.73_m2} Normal >60 [facility] Comment on above: Order Comment: No: D o not add to previous draw Result Comment: Calc ulation may not be valid for patients over 70 years Performed By: #### 4 1000, 38816, 52536 ####[place] [address] [place] [address], [facility] GFR/1.73 sq M.predicted among non-blacks MDRD (S/P/Bld) [Vol rate/Area] mL/min/{1.73_m2} Normal >60 [facility] Comment on above: Order Comment: No: D o not add to previous draw Result Comment: Calc ulation may not be valid for patients over 70 years Performed By: #### 4 1000, 35585, 29864 ####[facility] [place] [address], [facility] Glucose [Mass/Vol] 135 mg/dL High 70-100 [facility] Comment on above: Order Comment: No: D o not add to previous draw Performed By: #### 4 1000, 75798, 18224 ####[facility] [place] [address], [facility] Potassium [Moles/Vol] 3.4 mmol/L Low 3.5-5.1 [facility] Comment on above: Order Comment: No: D o not add to previous draw Performed By: #### 4 1000, 97096, 49689 ####[facility] Sodium [Moles/Vol] 134 mmol/L Low 136-145 [facility] Comment on above: Order Comment: No: D o not add to previous draw Performed By: #### 4 1000, 68543, 34201 ####[facility] [facility].[address] Urea nitrogen [Mass/Vol] 21 mg/dL Normal 7-25 [facility] Comment on above: Order Comment: No: D o not add to previous draw Performed By: #### 4 1000, 02055, 23682 ####[facility] CBC COMPLETE BLOOD COUNTon 0 - Erythrocyte distribution width (RBC) [Ratio] 15.0 % Normal 11.5-15.0 [facility] Comment on above: Order Comment: No: D o not add to previous drawNurse draw Performed By: #### 5 0608 ####[facility] [facility].[address] Hematocrit (Bld) [Volume fraction] 32.0 % Low 39.0-50.0 [facility] Comment on above: Order Comment: No: D o not add to previous drawNurse draw Performed By: #### 5 0608 ####[facility] [facility].[address] Hemoglobin (Bld) [Mass/Vol] 10.6 g/dL Low 13.0-17.0 [facility] Comment on above: Order Comment: No: D o not add to previous drawNurse draw Performed By: #### 5 0608 ####[facility] MCH (RBC) [Entitic mass] 30.5 pg Normal 27.0-33.0 [facility] Comment on above: Order Comment: No: D o not add to previous drawNurse draw Performed By: #### 5 0608 ####[facility] [facility].[address] MCHC (RBC) [Mass/Vol] 33.1 g/dL Normal 32.0-35.0 [facility] Comment on above: Order Comment: No: D o not add to previous drawNurse draw Performed By: #### 5 0608 ####[place] [address] MCV (RBC) [Entitic vol] 92.2 fL Normal 82.0-98.0 [facility] Comment on above: Order Comment: No: D o not add to previous drawNurse draw Performed By: #### 5 0608 ####[place] [address] Nucleated RBC/100 WBC (Bld) [Ratio] 0 % Normal 0-0 [facility] Comment on above: Order Comment: No: D o not add to previous drawNurse draw Performed By: #### 5 0608 ####[place] [address] PLAT CNT 182 10*3/uL Normal 150-400 [facility] Comment on above: Order Comment: No: D o not add to previous drawNurse draw Performed By: #### 5 0608 ####[address] RBC (Bld) [#/Vol] 3.47 10*6/uL Low 4.20-5.70 [facility] Comment on above: Order Comment: No: D o not add to previous drawNurse draw Performed By: #### 5 0608 ####[address] WBC (Bld) [#/Vol] 9.87 10*3/uL Normal 4.00-10.60 [facility] Comment on above: Order Comment: No: D o not add to previous drawNurse draw Performed By: #### 5 0608 ####[facility] [place] [address], [place] MAGNESIUM BLOODon 04-11-2021 Magnesium [Mass/Vol] 2.1 mg/dL Normal 1.9-2.7 [facility] Comment on above: Order Comment: No: D o not add to previous draw Performed By: #### 4 1000, 92697, 66813 ####[facility] [place] [address], [place] PHOSPHORUS BLOODon Phosphate [Mass/Vol] 3.7 mg/dL Normal 2.5-5.0 [facility] Comment on above: Order Comment: No: D o not add to previous draw Performed By: #### 4 1000, 51008, 83584 ####[facility] [place] [address], [place] POC GLUCOSE LABon 04-11-2021 Glucose [Mass/Vol] 137 mg/dL High 70-100 [facility] Comment on above: Performed By: #### 8 8449 ####[facility] [place] [address], [place] Glucose [Mass/Vol] 182 mg/dL High 70-100 [facility] Comment on above: Performed By: #### 8 0339 ####[facility] [place] [address], [place] Glucose [Mass/Vol] 171 mg/dL High 70-100 [facility] Comment on above: Performed By: #### 8 5499 ####[facility] [place] [address], [place] Glucose [Mass/Vol] 142 mg/dL High 70-100 [facility] Comment on above: Performed By: #### 8 4809 ####[facility] [facility] [place] [address], [facility] PORTABLE CHEST 1 VIEWon 03-24 PORTABLE CHEST 1 VIEW Normal [facility] Comment on above: Order Comment: Evalu ate for Pneumothorax PORTABLE CHEST 1 VIEW Normal [facility] Comment on above: Order Comment: evalu ate for Pneumothorax BASIC METABOLIC PANELon 03-24 Calcium [Mass/Vol] 8.2 mg/dL Low 8.6-10.3 [facility] Comment on above: Order Comment: No: D o not add to previous drawNurse draw rn barbara Performed By: #### 4 999, 24218, 44678 ####[facility] [facility] [place] [address], [facility] Chloride [Moles/Vol] 104 mmol/L Normal 98-107 [facility] Comment on above: Order Comment: No: D o not add to previous drawNurse draw rn barbara Performed By: #### 4 999, 80525, 72533 ####[facility] [facility] [place] [address], [facility] CO2 [Moles/Vol] 27 mmol/L Normal 21-31 [facility] Comment on above: Order Comment: No: D o not add to previous drawNurse draw rn barbara Performed By: #### 4 999, 05671, 72854 ####[facility] [facility] [place] [address], [facility] Creatinine [Mass/Vol] 0.76 mg/dL Normal 0.70-1.30 [facility] Comment on above: Order Comment: No: D o not add to previous drawNurse draw rn barbara Performed By: #### 4 999, 72274, 57148 ####[facility] [place] [address], [facility] GFR/1.73 sq M.predicted among blacks MDRD (S/P/Bld) [Vol rate/Area] mL/min/{1.73_m2} Normal >60 [facility] Comment on above: Order Comment: No: D o not add to previous drawNurse draw rn barbara Result Comment: Calc ulation may not be valid for patients over 70 years Performed By: #### 4 1000, 21483, 28584 ####[facility] [place] [address], [facility] GFR/1.73 sq M.predicted among non-blacks MDRD (S/P/Bld) [Vol rate/Area] mL/min/{1.73_m2} Normal >60 [facility] Comment on above: Order Comment: No: D o not add to previous drawNurse draw rn barbara Result Comment: Calc ulation may not be valid for patients over 70 years Performed By: #### 4 1000, 70113, 97681 ####[facility] [facility] [place] [address], [facility] Glucose [Mass/Vol] 109 mg/dL High 70-100 [facility] Comment [facility]: Order Comment: No: D o not add to previous drawNurse draw rn barbara Performed By: #### 4 999, 43684, 26021 ####[facility] [facility] [place] [address], [facility] Potassium [Moles/Vol] 4.0 mmol/L Normal 3.5-5.1 [facility] Comment on above: Order Comment: No: D o not add to previous drawNurse draw rn barbara Performed By: #### 4 999, 66353, 28021 ####[facility] [place] [address], [place] Sodium [Moles/Vol] 135 mmol/L Low 136-145 [facility] Comment on above: Order Comment: No: D o not add to previous drawNurse draw rn barbara Performed By: #### 4 1000, 43751, 75245 ####[facility] [place] [address], [place] Urea nitrogen [Mass/Vol] 15 mg/dL Normal 7-25 [facility] Comment on above: Order Comment: No: D o not add to previous drawNurse draw rn barbara Performed By: #### 4 1000, 27184, 08306 ####[facility] CBC COMPLETE BLOOD COUNTon 0 - Erythrocyte distribution width (RBC) [Ratio] 14.7 % Normal 11.5-15.0 [facility] Comment on above: Order Comment: No: D o not add to previous drawNurse draw rn barbara Performed By: #### 5 0608 ####[facility] Hematocrit (Bld) [Volume fraction] 32.7 % Low 39.0-50.0 [facility] Comment on above: Order Comment: No: D o not add to previous drawNurse draw rn barbara Performed By: #### 5 0608 ####[facility] Hemoglobin (Bld) [Mass/Vol] 10.7 g/dL Low 13.0-17.0 [facility] Comment on above: Order Comment: No: D o not add to previous drawNurse draw rn barbara Performed By: #### 5 0608 ####[facility] MCH (RBC) [Entitic mass] 30.1 pg Normal 27.0-33.0 [facility] Comment on above: Order Comment: No: D o not add to previous drawNurse draw rn barbara Performed By: #### 5 0608 ####[facility] MCHC (RBC) [Mass/Vol] 32.7 g/dL Normal 32.0-35.0 [facility] Comment on above: Order Comment: No: D o not add to previous drawNurse draw rn barbara Performed By: #### 5 0608 ####[facility] [facility] [place] [address], [facility] MCV (RBC) [Entitic vol] 92.1 fL Normal 82.0-98.0 [facility] Comment on above: Order Comment: No: D o not add to previous drawNurse draw rn barbara Performed By: #### 5 0608 ####[facility] [facility].[address] Nucleated RBC/100 WBC (Bld) [Ratio] 0 % Normal 0-0 [facility] Comment on above: Order Comment: No: D o not add to previous drawNurse draw rn barbara Performed By: #### 5 0608 ####[facility] [place] [address], [facility] PLAT CNT 176 10*3/uL Normal 150-400 [facility] Comment on above: Order Comment: No: D o not add to previous drawNurse draw rn barbara Performed By: #### 5 0608 ####[facility] [place] [address], [facility] RBC (Bld) [#/Vol] 3.55 10*6/uL Low 4.20-5.70 [facility] Comment on above: Order Comment: No: D o not add to previous drawNurse draw rn barbara Performed By: #### 5 0608 ####[facility] [place] [address], [facility] WBC (Bld) [#/Vol] 12.43 10*3/uL High 4.00-10.60 [facility] Comment on above: Order Comment: No: D o not add to previous drawNurse draw rn barbara Performed By: #### 5 0608 ####[facility] [place] [address], [facility] COOXIMETRYon 04-10-2021 COHB 1 % Normal [facility] Comment on above: Performed By: #### 7 0207 ####[facility] [place] [address], [facility] METHB 0 % Normal [facility] Comment on above: Performed By: #### 7 0207 ####[facility] [place] [address], [facility] Oxygen saturation in Blood 68.2 % Normal 65.0-75.0 [facility] Comment on above: Performed By: #### 7 0207 ####[facility] [place] [address], [facility] THB 13.1 g/dL Normal [facility] Comment on above: Performed By: #### 7 0207 ####[facility] [facility] [id number], [facility] LACTATE BLOODon 04-10-2021 Lactate [Moles/Vol] 0.7 mmol/L Normal .5-2.2 [facility] Comment on above: Order Comment: No: D o not add to previous drawNurse draw rn barbara Performed By: #### 1 0054 ####[facility] [place] [address], [facility] MAGNESIUM BLOODon 04-10-2021 Magnesium [Mass/Vol] 2.3 mg/dL Normal 1.9-2.7 [facility] Comment on above: Order Comment: No: D o not add to previous drawNurse draw rn barbara Performed By: #### 4 999, 28821, 44047 ####[facility] [place] [address], [facility] PHOSPHORUS BLOODon Phosphate [Mass/Vol] 3.9 mg/dL Normal 2.5-5.0 [facility] Comment on above: Order Comment: No: D o not add to previous drawNurse draw rn barbara Performed By: #### 4 999, 79772, 93569 ####[facility] [place] [address], [place] POC GLUCOSE LABon 04-10-2021 Glucose [Mass/Vol] 168 mg/dL High 70-100 [facility] Comment on above: Performed By: #### 8 5499 ####[facility] [place] [address], [place] Glucose [Mass/Vol] 131 mg/dL High 70-100 [facility] Comment on above: Performed By: #### 8 5499 ####[facility] [place] [address], [place] Glucose [Mass/Vol] 123 mg/dL High 70-100 [facility] Comment on above: Performed By: #### 8 5499 ####[facility] [place] [address], [place] Glucose [Mass/Vol] 170 mg/dL High 70-100 [facility] Comment on above: Performed By: #### 8 5499 ####[facility] [place] [address], [place] Glucose [Mass/Vol] 131 mg/dL High 70-100 [facility] Comment on above: Performed By: #### 8 5499 ####[facility] [place] [address], [place] Glucose [Mass/Vol] 123 mg/dL High 70-100 [facility] Comment on above: Performed By: #### 8 5499 ####[facility] [place] [address], [place] Glucose [Mass/Vol] 92 mg/dL Normal 70-100 [facility] Comment on above: Performed By: #### 8 5499 ####[facility] [place] [address], [place] Glucose [Mass/Vol] 99 mg/dL Normal 70-100 [facility] [place] [facility] Comment on above: Performed By: #### 8 5499 ####[facility] [place] [address], [facility] Glucose [Mass/Vol] 124 mg/dL High 70-100 [facility] Comment on above: Performed By: #### 8 5499 ####[facility] [place] [address], [facility] Glucose [Mass/Vol] 141 mg/dL High 70-100 [facility] Comment on above: Performed By: #### 8 5499 ####[facility] [place] [address], [facility] Glucose [Mass/Vol] 143 mg/dL High 70-100 [facility] Comment on above: Performed By: #### 8 5499 ####[facility] [place] [address], [facility] PORTABLE CHEST 1 VIEWon 03-24 PORTABLE CHEST 1 VIEW Normal [facility] Comment on above: Order Comment: Check Chest Tube Position, s/p mediasteinal tube removal PORTABLE CHEST 1 VIEW Normal [facility] Comment on above: Order Comment: evalu ate for Atelectasis APTTon 04-09-2021 aPTT Coag (Bld) [Time] 28.6 s Normal 25.0-35.0 [facility] Comment on above: Order Comment: post [...] THIS PURPOSE. Performed By: #### 5 7307, 83555 ####[facility] [place] [address], [facility] ARTERIAL BLOOD GAS WITH ICAo n 04-09-2021 DELIVERY SYSTEMS NC Normal The [facility] Comment on above: Performed By: #### 8 4511 ####[facility] [place] [address], [place] IONIZED CALCIUM 1.15 mmol/L Normal 1.13-1.32 [facility] Comment on above: Performed By: #### 8 4511 ####[facility] [place] [address], [place] LPM 4.0 LPM Normal [facility] Comment on above: Performed By: #### 8 4511 ####[facility] [place] [address], [place] Oxygen (Bld) [Partial pressure] 63 mm[Hg] Low 83-108 [facility] Comment on above: Performed By: #### 8 4511 ####[facility] [place] [address], [place] Oxygen saturation in Blood 94.2 % Normal 94.0-97.0 [facility] Comment on above: Performed By: #### 8 4511 ####[facility] [place] [address], [place] BASE EXCESS 3 mmol/L Normal -2-3 [facility] Comment on above: Performed By: #### 8 4511 ####[facility] [place] [address], [place] DEL[employer]ERY SYSTEMS MV Normal [facility] Comment on above: Performed By: #### 8 4511 ####[facility] [place] [address], [place] FIO2 40 % Normal [facility] Comment on above: Performed By: #### 8 4511 ####[facility] [place] [address], [facility] HCO3 (Bld) [Moles/Vol] 27 mmol/L Normal 21-28 [facility] Comment on above: Performed By: #### 8 4511 ####[facility] [facility] [address], [facility] IONIZED CALCIUM 1.17 mmol/L Normal 1.13-1.32 [facility] Comment on above: Performed By: #### 8 4511 ####[facility] [place] [address], [facility] MIN VOLUME 14.0 Normal [facility] Comment on above: Performed By: #### 8 4511 ####[facility] [place] [address], [facility] MODALITY SPONT Normal [facility] Comment on above: Performed By: #### 8 4511 ####[facility] [place] [address], [facility] Oxygen (Bld) [Partial pressure] 79 mm[Hg] Low 83-108 [facility] Comment on above: Performed By: #### 8 4511 ####[facility] [place] [address], [facility] Oxygen saturation in Blood 96.5 % Normal 94.0-97.0 [facility] [facility] Comment on above: Performed By: #### 8 4511 ####[facility] [place] [address], [facility] PCO2 37 mmHg Normal 35-45 [facility] Comment on above: Performed By: #### 8 4511 ####[facility] [place] [address], [facility] PEEP 5.0 CMH20 Normal [facility] Comment on above: Performed By: #### 8 4511 ####[facility] [facility] PF RATIO 198 mmHg Normal [facility] Comment on above: Performed By: #### 8 4511 ####[facility] [place] [address], [facility] pH (Bld) 7.47 [pH] High 7.35-7.45 [facility] Comment on above: Performed By: #### 8 4511 ####[facility] PRESSURE SUPPORT 5 Normal [facility] Comment on above: Performed By: #### 8 4511 ####[facility] [facility].[address] BASE EXCESS 2 mmol/L Normal -2-3 [facility] Comment on above: Performed By: #### 8 4511 ####[facility] [facility].[address] DELIVERY SYSTEMS MV Normal [facility] Comment on above: Performed By: #### 8 4511 ####[facility] [facility].[address] FIO2 50 % Normal [facility] Comment on above: Performed By: #### 8 4511 ####[facility] [facility].[address] HCO3 (Bld) [Moles/Vol] 26 mmol/L Normal 21-28 [facility] Comment on above: Performed By: #### 8 4511 ####[facility] [facility].[address] IONIZED CALCIUM 1.17 mmol/L Normal 1.13-1.32 [facility] Comment on above: Performed By: #### 8 4511 ####[facility] [place] [address], [place] MIN VOLUME 13.3 Normal [facility] Comment on above: Performed By: #### 8 4511 ####[facility] [place] [address], [facility] MODALITY SIMV Normal [facility] Comment on above: Performed By: #### 8 4511 ####[facility] [place] [address], [place] Oxygen (Bld) [Partial pressure] 79 mm[Hg] Low 83-108 [facility] Comment on above: Performed By: #### 8 4511 ####[facility] [place] [address], [facility] Oxygen saturation in Blood 96.8 % Normal 94.0-97.0 [facility] Comment on above: Performed By: #### 8 4511 ####[facility] [place] [address], [place] PCO2 36 mmHg Normal 35-45 [facility] Comment on above: Performed By: #### 8 4511 ####[facility] [place] [address], [place] PEEP 8.0 CMH20 Normal [facility] Comment on above: Performed By: #### 8 4511 ####[facility] [place] [address], [place] PF RATIO 158 mmHg Normal [facility] Comment on above: Performed By: #### 8 4511 ####[facility] [place] [address], [place] pH (Bld) 7.46 [pH] High 7.35-7.45 [facility] Comment on above: Performed By: #### 8 4511 ####[facility] [place] [address], [place] PRESSURE SUPPORT 10 Normal [facility] Comment on above: Performed By: #### 8 4511 ####[facility] [place] [address], [facility] Respiratory rate 18 /min Normal [facility] Comment on above: Performed By: #### 8 4511 ####[facility] [place] [address], [place] TIDAL VOLUME (VT) CC 700 Normal [facility] Comment on above: Performed By: #### 8 4511 ####[facility] [place] [address], [place] BASE EXCESS -4 mmol/L Low -2-3 [facility] Comment on above: Performed By: #### 8 4511 ####[facility] [place] [address], [facility] DELIVERY SYSTEMS MV Normal [facility] Comment on above: Performed By: #### 8 4511 ####[facility] [place] [address], [place] FIO2 80 % Normal [facility] Comment on above: Performed By: #### 8 4511 ####[facility] [place] [address], [place] HCO3 (Bld) [Moles/Vol] 20 mmol/L Low 21-28 [facility] Comment on above: Performed By: #### 8 4511 ####[facility] [place] [address], [place] IONIZED CALCIUM 1.14 mmol/L Normal 1.13-1.32 [facility] Comment on above: Performed By: #### 8 4511 ####[facility] [place] [address], [place] MIN VOLUME 13.5 Normal [facility] Comment on above: Performed By: #### 8 4511 ####[facility] [place] [address], [place] MODALITY SIMV Normal [facility] Comment on above: Performed By: #### 8 4511 ####[facility] [place] [address], [place] Oxygen (Bld) [Partial pressure] 121 mm[Hg] Critically high 83-108 [facility] Comment on above: Performed By: #### 8 4511 ####[facility] [place] [address], [place] Oxygen saturation in Blood 97.1 % High 94.0-97.0 [facility] Comment on above: Performed By: #### 8 4511 ####[facility] [place] [address], [place] PCO2 34 mmHg Low 35-45 [facility] Comment on above: Performed By: #### 8 4511 ####[facility] [place] [address], [place] PEEP 8.0 CMH20 Normal [facility] Comment on above: Performed By: #### 8 4511 ####[facility] [place] [address], [place] pH (Bld) 7.38 [pH] Normal 7.35-7.45 [facility] Comment on above: Performed By: #### 8 4511 ####[facility] [place] [address], [place] PRESSURE SUPPORT 10 Normal [facility] Comment on above: Performed By: #### 8 4511 ####[facility] [place] [address], [place] Respiratory rate 18 /min Normal [facility] Comment on above: Performed By: #### 8 4511 ####[facility] TIDAL VOLUME (VT) CC 700 Normal [facility] Comment on above: Performed By: #### 8 4511 ####[facility] [facility].[address] BASE EXCESS -8 mmol/L Low -2-3 [facility] Comment on above: Performed By: #### 8 4511 ####[facility] [facility].[address] DELIVERY SYSTEMS MV Normal [facility] Comment on above: Performed By: #### 8 4511 ####[facility] [facility].[address] FIO2 80 % Normal [facility] Comment on above: Performed By: #### 8 4511 ####[facility] [facility].[address] HCO3 (Bld) [Moles/Vol] 18 mmol/L Low 21-28 [facility] Comment on above: Performed By: #### 8 4511 ####[facility] [facility].[address] IONIZED CALCIUM 1.06 mmol/L Low 1.13-1.32 [facility] Comment on above: Performed By: #### 8 4511 ####[facility] [facility].[address] MIN VOLUME 16.6 Normal [facility] Comment on above: Performed By: #### 8 4511 ####[facility] [facility].[address] MODALITY SIMV Normal [facility] Comment on above: Performed By: #### 8 4511 ####[facility] [facility].[address] Oxygen (Bld) [Partial pressure] 86 mm[Hg] Normal 83-108 [facility] Comment on above: Performed By: #### 8 4511 ####[facility] [place] [address], [facility] Oxygen saturation in Blood 96.6 % Normal 94.0-97.0 [facility] Comment on above: Performed By: #### 8 4511 ####[facility] [place] [address], [facility] PCO2 34 mmHg Low 35-45 [facility] Comment on above: Performed By: #### 8 4511 ####[facility] [place] [address], [place] PEEP 8.0 CMH20 Normal [facility] Comment on above: Performed By: #### 8 4511 ####[facility] [place] [address], [place] PF RATIO 108 mmHg Normal [facility] Comment on above: Performed By: #### 8 4511 ####[facility] [place] [address], [facility] pH (Bld) 7.32 [pH] Low 7.35-7.45 [facility] Comment on above: Performed By: #### 8 4511 ####[facility] [place] [address], [facility] PRESSURE SUPPORT 10 Normal [facility] Comment on above: Performed By: #### 8 4511 ####[facility] [place] [address], [facility] Respiratory rate 18 /min Normal [facility] Comment on above: Performed By: #### 8 4511 ####[facility] [place] [address], [facility] TIDAL VOLUME (VT) CC 700 Normal [facility] Comment on above: Performed By: #### 8 4511 ####[facility] [place] [address], [facility] BASIC METABOLIC PANELon 03-24 Calcium [Mass/Vol] 8.0 mg/dL Low 8.6-10.3 [facility] Comment on above: Order Comment: No: D o not add to previous draw Performed By: #### 0 0071, 73004 ####[facility] [place] [address], [facility] Chloride [Moles/Vol] 107 mmol/L Normal 98-107 [facility] Comment on above: Order Comment: No: D o not add to previous draw Performed By: #### 0 0071, [id number] ####[facility] [place] [address], [facility] CO2 [Moles/Vol] 26 mmol/L Normal 21-31 [facility] Comment on above: Order Comment: No: D o not add to previous draw Performed By: #### 0 0071, [id number] ####[facility] [facility] [place] [address], [facility] Creatinine [Mass/Vol] 0.90 mg/dL Normal 0.70-1.30 [facility] Comment on above: Order Comment: No: D o not add to previous draw Performed By: #### 0 0071, 52214 ####[facility] [place] [address], [facility] GFR/1.73 sq M.predicted among blacks MDRD (S/P/Bld) [Vol rate/Area] mL/min/{1.73_m2} Normal >60 [facility] Comment on above: Order Comment: No: D o not add to previous draw Result Comment: Calc ulation may not be valid for patients over 70 years Performed By: #### 0 0071, 96118 ####[facility] [place] [address], [facility] GFR/1.73 sq M.predicted among non-blacks MDRD (S/P/Bld) [Vol rate/Area] mL/min/{1.73_m2} Normal >60 [facility] Comment on above: Order Comment: No: D o not add to previous draw Result Comment: Calc ulation may not be valid for patients over 70 years Performed By: #### 0 0071, 38961 ####[facility] [place] [address], [place] Glucose [Mass/Vol] 126 mg/dL High 70-100 [facility] Comment [facility]: Order Comment: No: D o not add to previous draw Performed By: #### 0 0071, 82831 ####[facility] [place] [address], [facility] Potassium [Moles/Vol] 3.8 mmol/L Normal 3.5-5.1 [facility] Comment on above: Order Comment: No: D o not add to previous draw Performed By: #### 0 0071, 39171 ####[facility] [id number], [facility] Sodium [Moles/Vol] 136 mmol/L Normal 136-145 [facility] Comment on above: Order Comment: No: D o not add to previous draw Performed By: #### 0 0071, 04644 ####[facility] [place] [address], [place] Urea nitrogen [Mass/Vol] 21 mg/dL Normal 7-25 [facility] Comment on above: Order Comment: No: D o not add to previous draw Performed By: #### 0 0071, 38379 ####[facility] [place] [address], [place] Calcium [Mass/Vol] 7.8 mg/dL Low 8.6-10.3 [facility] Comment on above: Order Comment: post op day 1No: Do not add to previous draw Performed By: #### 1 0, 77333 ####[facility] [place] [address], [facility] Chloride [Moles/Vol] 103 mmol/L Normal 98-107 [facility] Comment on above: Order Comment: post op day 1No: Do not add to previous draw Performed By: #### 1 0, 42603 ####[facility] [place] [address], [facility] CO2 [Moles/Vol] 20 mmol/L Low 21-31 [facility] Comment on above: Order Comment: post op day 1No: Do not add to previous draw Performed By: #### 1 0, 19761 ####[facility] [place] [address], [facility] Creatinine [Mass/Vol] 1.25 mg/dL Normal 0.70-1.30 [facility] Comment on above: Order Comment: post op day 1No: Do not add to previous draw Performed By: #### 1 0, 57375 ####[facility] [place] [address], [facility] eGFR- non- 56 ml/min/1.73sq m Abnormal >60 [facility] Comment on above: Order Comment: post op day 1No: Do not add to previous draw Result Comment: Calc ulation may not be valid for patients over 70 years Performed By: #### 1 69, 22348 ####[facility] [place] [address], [facility] GFR/1.73 sq M.predicted among blacks MDRD (S/P/Bld) [Vol rate/Area] mL/min/{1.73_m2} Normal >60 [facility] Comment on above: Order Comment: post op day 1No: Do not add to previous draw Result Comment: Calc ulation may not be valid for patients over 70 years Performed By: #### 1 0070, 68711 ####[facility] [place] [address], [facility] Glucose [Mass/Vol] 331 mg/dL High 70-100 [facility] Comment on above: Order Comment: post op day 1No: Do not add to previous draw Performed By: #### 1 69, 33634 ####[facility] [facility] [place] [address], [facility] Potassium [Moles/Vol] 3.2 mmol/L Low 3.5-5.1 [facility] Comment on above: Order Comment: post op day 1No: Do not add to previous draw Performed By: #### 1 69, 34800 ####[facility] [facility] [place] [address], [facility] Sodium [Moles/Vol] 135 mmol/L Low 136-145 [facility] Comment on above: Order Comment: post op day 1No: Do not add to previous draw Performed By: #### 1 69, 12373 ####[facility] [place] [address], [facility] Urea nitrogen [Mass/Vol] 24 mg/dL Normal 7-25 [facility] Comment on above: Order Comment: post op day 1No: Do not add to previous draw Performed By: #### 1 69, 92779 ####[facility] [facility].[address] CBC COMPLETE BLOOD COUNTon 0 8- Erythrocyte distribution width (RBC) [Ratio] 14.6 % Normal 11.5-15.0 [facility] Comment on above: Order Comment: post op day 1No: Do not add to previous draw Performed By: #### 5 0608 ####[facility] [place] [address], [facility] Hematocrit (Bld) [Volume fraction] 30.5 % Low 39.0-50.0 [facility] Comment on above: Order Comment: post op day 1No: Do not add to previous draw Performed By: #### 5 0608 ####[facility] [facility].[address] Hemoglobin (Bld) [Mass/Vol] 10.2 g/dL Low 13.0-17.0 [facility] Comment on above: Order Comment: post op day 1No: Do not add to previous draw Performed By: #### 5 0608 ####[facility] [facility].[address] MCH (RBC) [Entitic mass] 30.9 pg Normal 27.0-33.0 [facility] Comment on above: Order Comment: post op day 1No: Do not add to previous draw Performed By: #### 5 0608 ####[facility] MCHC (RBC) [Mass/Vol] 33.4 g/dL Normal 32.0-35.0 [facility] Comment on above: Order Comment: post op day 1No: Do not add to previous draw Performed By: #### 5 0608 ####[facility] [facility].[address] MCV (RBC) [Entitic vol] 92.4 fL Normal 82.0-98.0 [facility] Comment on above: Order Comment: post op day 1No: Do not add to previous draw Performed By: #### 5 0608 ####[facility] [facility].[address] Nucleated RBC/100 WBC (Bld) [Ratio] 0 % Normal 0-0 [facility] Comment on above: Order Comment: post op day 1No: Do not add to previous draw Performed By: #### 5 0608 ####[facility] [place] [address], [facility] PLAT CNT 232 10*3/uL Normal 150-400 [facility] Comment on above: Order Comment: post op day 1No: Do not add to previous draw Performed By: #### 5 0608 ####[facility] [place] [address], [facility] RBC (Bld) [#/Vol] 3.30 10*6/uL Low 4.20-5.70 [facility] Comment on above: Order Comment: post op day 1No: Do not add to previous draw Performed By: #### 5 0608 ####[facility] [place] [address], [facility] WBC (Bld) [#/Vol] 17.37 10*3/uL High 4.00-10.60 [facility] Comment on above: Order Comment: post op day 1No: Do not add to previous draw Performed By: #### 5 0608 ####[facility] [place] [address], [facility] CBC W/DIFFon 04-09-2021 ABS IMM GRANS 0.1 10*3/uL Normal 0.0-0.2 The [facility] Comment on above: Order Comment: No: D o not add to previous draw Performed By: #### 5 0103 ####[facility] [facility].[address] ABS NEUTROPHILS 8.3 10*3/uL High 1.6-7.6 [facility] Comment on above: Order Comment: No: D o not add to previous draw Performed By: #### 5 0103 ####[facility] [place] [address], [facility] Basophils (Bld) [#/Vol] 0.0 10*3/uL Normal 0.0-0.2 [facility] Comment on above: Order Comment: No: D o not add to previous draw Performed By: #### 5 0103 ####[facility] [place] [address], [facility] Basophils/100 WBC (Bld) 0.1 % Normal 0.0-1.0 [facility] Comment on above: Order Comment: No: D o not add to previous draw Performed By: #### 5 0103 ####[facility] [facility] [place] [address], [facility] Eosinophils (Bld) [#/Vol] 0.0 10*3/uL Normal 0.0-0.5 [facility] Comment on above: Order Comment: No: D o not add to previous draw Performed By: #### 5 0103 ####[facility] [place] [address], [facility] Eosinophils/100 WBC (Bld) 0.0 % Normal 0.0-6.0 [facility] Comment on above: Order Comment: No: D o not add to previous draw Performed By: #### 5 0103 ####[facility] [place] [address], [facility] Erythrocyte distribution width (RBC) [Ratio] 14.4 % Normal 11.5-15.0 [facility] Comment on above: Order Comment: No: D o not add to previous draw Performed By: #### 5 3 ####[facility] [place] [address], [facility] Hematocrit (Bld) [Volume fraction] 28.9 % Low 39.0-50.0 [facility] Comment on above: Order Comment: No: D o not add to previous draw Performed By: #### 5 0103 ####[facility] [place] [address], [facility] Hemoglobin (Bld) [Mass/Vol] 9.6 g/dL Low 13.0-17.0 [facility] Comment on above: Order Comment: No: D o not add to previous draw Performed By: #### 5 0103 ####[facility] IMMATURE GRANS 0.5 % Normal 0.0-1.0 [facility] Comment on above: Order Comment: No: D o not add to previous draw Performed By: #### 5 0103 ####[facility] Lymphocytes (Bld) [#/Vol] 1.3 10*3/uL Normal 1.2-4.0 [facility] Comment on above: Order Comment: No: D o not add to previous draw Performed By: #### 5 0103 ####[facility] Lymphocytes/100 WBC (Bld) 12.1 % Low 20.0-45.0 [facility] Comment on above: Order Comment: No: D o not add to previous draw Performed By: #### 5 0103 ####[facility] MCH (RBC) [Entitic mass] 30.6 pg Normal 27.0-33.0 [facility] Comment on above: Order Comment: No: D o not add to previous draw Performed By: #### 5 3 ####[facility] MCHC (RBC) [Mass/Vol] 33.2 g/dL Normal 32.0-35.0 [facility] Comment on above: Order Comment: No: D o not add to previous draw Performed By: #### 5 0103 ####[facility] [place] [address] MCV (RBC) [Entitic vol] 92.0 fL Normal 82.0-98.0 [facility] Comment on above: Order Comment: No: D o not add to previous draw Performed By: #### 5 0103 ####[facility] [place] [address], [facility] Monocytes (Bld) [#/Vol] 1.2 10*3/uL High 0.1-1.0 [facility] Comment on above: Order Comment: No: D o not add to previous draw Performed By: #### 5 0103 ####[facility] [facility] [place] [address], [facility] MONOS 10.9 % Normal 5.0-12.0 [facility] Comment on above: Order Comment: No: D o not add to previous draw Performed By: #### 5 0103 ####[facility] [place] [address], [facility] Neutrophils/100 WBC (Bld) 76.4 % High 40.0-72.0 [facility] Comment on above: Order Comment: No: D o not add to previous draw Performed By: #### 5 0103 ####[facility] [place] [address], [facility] Nucleated RBC/100 WBC (Bld) [Ratio] 0 % Normal 0-0 [facility] Comment on above: Order Comment: No: D o not add to previous draw Performed By: #### 5 3 ####[facility] [place] [address], [facility] PLAT CNT 175 10*3/uL Normal 150-400 [facility] Comment on above: Order Comment: No: D o not add to previous draw Performed By: #### 5 0103 ####[facility] [place] [address], [facility] RBC (Bld) [#/Vol] 3.14 10*6/uL Low 4.20-5.70 [facility] Comment on above: Order Comment: No: D o not add to previous draw Performed By: #### 5 3 ####[facility] [place] [address], [facility] WBC (Bld) [#/Vol] 10.92 10*3/uL High 4.00-10.60 [facility] Comment on above: Order Comment: No: D o not add to previous draw Performed By: #### 5 0103 ####[facility] [id number], [facility] LACTATE BLOODon 04-09-2021 Lactate [Moles/Vol] 0.9 mmol/L Normal .5-2.2 [facility] Comment on above: Order Comment: No: D o not add to previous draw Performed By: #### 1 0054 ####[facility] [place] [address], [facility] Lactate [Moles/Vol] 3.8 mmol/L High .5-2.2 [facility] Comment on above: Order Comment: No: D o not add to previous draw Result Comment: M-CR ITICAL RESULT(S) REVIEWED, CALLED TO AND READ BACK BY [employer] DRIVER 0855 Performed By: #### 1 0054 ####[facility] [place] [address], [facility] Lactate [Moles/Vol] 7.1 mmol/L Critically high .5-2.2 [facility] Comment on above: Order Comment: post op day 1No: Do not add to previous draw Result Comment: M-NM EVIOUS CRITICAL RESULT Performed By: #### 1 0054 ####[facility] [facility] [id number], [facility] MAGNESIUM BLOODon 04-09-2021 Magnesium [Mass/Vol] 2.3 mg/dL Normal 1.9-2.7 [facility] Comment on above: Order Comment: No: D o not add to previous draw Performed By: #### 1 0070, [id number] ####[facility] [place] [address], [place] Magnesium [Mass/Vol] 2.2 mg/dL Normal 1.9-2.7 [facility] Comment on above: Order Comment: added from prior Performed By: #### 0 0071, 27150 ####[facility] [place] [address], [place] Magnesium [Mass/Vol] 2.4 mg/dL Normal 1.9-2.7 [facility] Comment on above: Order Comment: post op day 1No: Do not add to previous draw Performed By: #### 1 0070, 77804 ####[facility] [place] [address], [place] Operative Reporton Operative Report Normal [facility] POC GLUCOSE LABon 04-09-2021 Glucose [Mass/Vol] 162 mg/dL High 70-100 The Un [facility] Comment on above: Performed By: #### 8 5499 ####[facility] [place] [address], [place] Glucose [Mass/Vol] 128 mg/dL High 70-100 The Un [facility] Comment on above: Performed By: #### 8 5499 ####[facility] [place] [address], [place] Glucose [Mass/Vol] 117 mg/dL High 70-100 The [facility] Comment on above: Performed By: #### 8 5499 ####[facility] [place] [address], [place] Glucose [Mass/Vol] 110 mg/dL High 70-100 [facility] Comment on above: Performed By: #### 8 5499 ####[facility] [place] [address], [place] Glucose [Mass/Vol] 65 mg/dL Low 70-100 The Un [facility] Comment on above: Performed By: #### 8 5499 ####[facility] [place] [address], [place] Glucose [Mass/Vol] 86 mg/dL Normal 70-100 The Un [facility] Comment on above: Performed By: #### 8 5499 ####[facility] [place] [address], [place] Glucose [Mass/Vol] 127 mg/dL High 70-100 The Un [facility] Comment on above: Performed By: #### 8 5499 ####[facility] [place] [address], [place] Glucose [Mass/Vol] 230 mg/dL High 70-100 The Un [facility] Comment on above: Performed By: #### 8 5499 ####[facility] [place] [address], [place] Glucose [Mass/Vol] 244 mg/dL High 70-100 The Un [facility] Comment on above: Performed By: #### 8 5499 ####[facility] [place] [address], [place] Glucose [Mass/Vol] 283 mg/dL High 70-100 [facility] Comment on above: Performed By: #### 8 5499 ####[facility] [place] [address], [place] Glucose [Mass/Vol] 326 mg/dL High 70-100 The [facility] Comment on above: Performed By: #### 8 5499 ####[facility] [place] [address], [place] Glucose [Mass/Vol] 347 mg/dL High 70-100 The [facility] Comment on above: Performed By: #### 8 5499 ####[facility] [place] [address], [place] Glucose [Mass/Vol] 258 mg/dL High 70-100 The Un [facility] Comment on above: Performed By: #### 8 5499 ####[facility] [place] [address], [place] Glucose [Mass/Vol] 334 mg/dL High 70-100 [facility] Comment [facility] above: Performed By: #### 8 5499 ####[facility] [place] [address], [place] Glucose [Mass/Vol] 338 mg/dL High 70-100 [facility] Comment on above: Performed By: #### 8 5499 ####[facility] [place] [address], [place] Glucose [Mass/Vol] 321 mg/dL High 70-100 [facility] Comment on above: Performed By: #### 8 5499 ####[facility] [place] [address], [place] Glucose [Mass/Vol] 302 mg/dL High 70-100 [facility] Comment on above: Performed By: #### 8 5499 ####[facility] [place] [address], [place] PORTABLE CHEST 1 VIEWon 03-24 PORTABLE CHEST 1 VIEW Normal [facility] Comment on above: Order Comment: Check Chest Tube Position POTASSIUM BLOODon 04-09-2021 Potassium [Moles/Vol] 4.6 mmol/L Normal 3.5-5.1 [facility] Comment on above: Order Comment: No: D o not add to previous draw Performed By: #### 1 0070, 43269 ####[facility] [place] [address], [place] PROTHROMBIN TIMEon INR Coag (PPP) [Relative time] 1.22 {INR} High 0.91-1.16 [facility] Comment on above: Order Comment: post [...] OF ACTION, CLINICALEFFECTIVENESS, AND OPTIMAL THERAPEUTIC RANGE. [id number]. Performed By: #### 5 7307, 59319 ####[facility]3000 [facility] PT Coag (PPP) [Time] 15.4 s High 12.3-14.8 [facility] Comment on above: Order Comment: post op day 1No: Do not add to previous draw Result Comment: ALL RESULTS MUST BE INTERPRETED WITH RESPECT TO BLOOD DRAWING ARTIFACTOR DILUTION ERROR OF ANTICOAGULANT AT THE TIME OF SAMPLING. Performed By: #### 5 7307, 62950 ####[facility] [facility] [place] [address], [facility] ACTIVATED CLOTTING TIMEon ACTIVATED CLOTTING TIME 121 sec Normal 82-152 [facility] Comment on above: Performed By: #### 3 0739 ####[facility] [place] [address], [place] ACTIVATED CLOTTING TIME 305 sec High 82-152 [facility] Comment on above: Performed By: #### 3 0739 ####[facility] [place] [address], [facility] ACTIVATED CLOTTING TIME 286 sec High 82-152 [facility] Comment on above: Performed By: #### 3 0739 ####[facility] [place] [address], [facility] ACTIVATED CLOTTING TIME 279 sec High 82-152 [facility] Comment on above: Performed By: #### 3 0739 ####[facility] [place] [address], [facility] ACTIVATED CLOTTING TIME 325 sec High 82-152 [facility] Comment on above: Performed By: #### 3 0739 ####[facility] [place] [address], [facility] ACTIVATED CLOTTING TIME 184 sec High 82-152 [facility] Comment on above: Performed By: #### 3 0739 ####[facility] [place] [address], [facility] ACTIVATED CLOTTING TIME 121 sec Normal 82-152 [facility] Comment on above: Performed By: #### 3 0739 ####[facility] APTTon 04-08-2021 aPTT Coag (Bld) [Time] 30.4 s Normal 25.0-35.0 [facility] Comment on above: Order Comment: No: [...] THIS PURPOSE. Performed By: #### 5 6101, 63813 ####[facility] [place] [address], [facility] aPTT Coag (Bld) [Time] 30.6 s Normal 25.0-35.0 [facility] Comment on above: Result Comment: ALL [...] THIS PURPOSE. Performed By: #### 5 7307, 39596, 24414 ####[facility] ARTERIAL BLOOD GAS WITH ICAo n 04-08-2021 BASE EXCESS -4 mmol/L Low -2-3 [facility] Comment on above: Order Comment: on ar rival to CVU Performed By: #### 8 4511 ####[facility] DELIVERY SYSTEMS MV Normal [facility] Comment on above: Order Comment: on ar rival to CVU Performed By: #### 8 4511 ####[facility] [place] [address], [facility] FIO2 70 % Normal [facility] Comment on above: Order Comment: on ar rival to CVU Performed By: #### 8 4511 ####[facility] [place] [address], [facility] HCO3 (Bld) [Moles/Vol] 21 mmol/L Normal 21-28 [facility] Comment on above: Order Comment: on ar rival to CVU Performed By: #### 8 4511 ####[facility] [place] [address], [facility] IONIZED CALCIUM 1.09 mmol/L Low 1.13-1.32 [facility] Comment on above: Order Comment: on ar rival to CVU Performed By: #### 8 4511 ####[facility] [place] [address], [facility] MIN VOLUME 14.2 Normal [facility] Comment on above: Order Comment: on ar rival to CVU Result Comment: Resu lt changed by DOTTY on 04/08/2021 19:16. The previous value was16.0. Performed By: #### 8 4511 ####[facility] [place] [address], [facility] MODALITY SIMV Normal [facility] Comment on above: Order Comment: on ar rival to CVU Performed By: #### 8 4511 ####[facility] [place] [address], [facility] Oxygen (Bld) [Partial pressure] 69 mm[Hg] Low 83-108 [facility] Comment on above: Order Comment: on ar rival to CVU Performed By: #### 8 4511 ####[facility] [place] [address], [facility] Oxygen saturation in Blood 93.8 % Low 94.0-97.0 [facility] Comment on above: Order Comment: on ar rival to CVU Performed By: #### 8 4511 ####[facility] [place] [address], [facility] PCO2 36 mmHg Normal 35-45 [facility] Comment on above: Order Comment: on ar rival to CVU Performed By: #### 8 4511 ####[facility] [place] [address], [facility] PEEP 8.0 CMH20 Normal [facility] Comment on above: Order Comment: on ar rival to CVU Performed By: #### 8 4511 ####[facility] [place] [address], [facility] PF RATIO 99 mmHg Normal [facility] Comment on above: Order Comment: on ar rival to CVU Performed By: #### 8 4511 ####[facility] [place] [address], [facility] pH (Bld) 7.37 [pH] Normal 7.35-7.45 [facility] Comment on above: Order Comment: on ar rival to CVU Performed By: #### 8 4511 ####[facility] [place] [address], [facility] PRESSURE SUPPORT 10 Normal [facility] Comment on above: Order Comment: on ar rival to CVU Performed By: #### 8 4511 ####[facility] [place] [address], [facility] Respiratory rate 16 /min Normal [facility] Comment on above: Order Comment: on ar rival to CVU Performed By: #### 8 4511 ####[facility] [place] [address], [facility] TIDAL VOLUME (VT) CC 700 Normal [facility] Comment on above: Order Comment: on ar rival to CVU Performed By: #### 8 4511 ####[facility] [place] [address], [facility] BASE EXCESS -4 mmol/L Low -2-3 [facility] Comment on above: Performed By: #### 8 4511 ####[facility] [place] [address], [facility] DELIVERY SYSTEMS VENT Normal [facility] Comment on above: Performed By: #### 8 4511 ####[facility] [place] [address], [place] FIO2 70 % Normal [facility] Comment on above: Performed By: #### 8 4511 ####[facility] [place] [address], [place] HCO3 (Bld) [Moles/Vol] 23 mmol/L Normal 21-28 [facility] Comment on above: Performed By: #### 8 4511 ####[facility] [place] [address], [facility] IONIZED CALCIUM 1.14 mmol/L Normal 1.13-1.32 [facility] Comment on above: Performed By: #### 8 4511 ####[facility] [place] [address], [facility] MIN VOLUME 9.0 Normal [facility] Comment on above: Performed By: #### 8 4511 ####[facility] [place] [address], [facility] MODALITY SIMV Normal [facility] Comment on above: Performed By: #### 8 4511 ####[facility] [place] [address], [place] Oxygen (Bld) [Partial pressure] 70 mm[Hg] Low 83-108 [facility] Comment on above: Performed By: #### 8 4511 ####[facility] [place] [address], [facility] Oxygen saturation in Blood 92.5 % Low 94.0-97.0 [facility] Comment on above: Performed By: #### 8 4511 ####[facility] [place] [address], [facility] PCO2 48 mmHg High 35-45 [facility] Comment on above: Performed By: #### 8 4511 ####[facility] [place] [address], [place] PEEP 8.0 CMH20 Normal [facility] Comment on above: Performed By: #### 8 4511 ####[facility] [place] [address], [place] PF RATIO 100 mmHg Normal [facility] Comment on above: Performed By: #### 8 4511 ####[facility] [place] [address], [place] pH (Bld) 7.28 [pH] Low 7.35-7.45 [facility] Comment on above: Performed By: #### 8 4511 ####[facility] [place] [address], [place] PRESSURE SUPPORT 10 Normal [facility] Comment on above: Performed By: #### 8 4511 ####[facility] [place] [address], [place] Respiratory rate 14 /min Normal [facility] Comment on above: Performed By: #### 8 4511 ####[facility] [place] [address], [place] TIDAL VOLUME (VT) CC 550 Normal [facility] Comment on above: Performed By: #### 8 4511 ####[facility] [place] [address], [place] BASIC METABOLIC PANELon 08 Calcium [Mass/Vol] 7.7 mg/dL Low 8.6-10.3 [facility] Comment on above: Order Comment: No: D o not add to previous draw Performed By: #### 1 0070, 35227, 54308 ####[facility] [place] [address], [place] Chloride [Moles/Vol] 103 mmol/L Normal 98-107 [facility] Comment on above: Order Comment: No: D o not add to previous draw Performed By: #### 1 0070, 79902, 16779 ####[facility] [place] [address], [facility] CO2 [Moles/Vol] 21 mmol/L Normal 21-31 [facility] Comment on above: Order Comment: No: D o not add to previous draw Performed By: #### 1 0070, 26564, 45024 ####[facility] [place] [address], [facility] Creatinine [Mass/Vol] 1.15 mg/dL Normal 0.70-1.30 [facility] Comment on above: Order Comment: No: D o not add to previous draw Performed By: #### 1 0070, 33994, 66279 ####[facility] [place] [address], [facility] GFR/1.73 sq M.predicted among blacks MDRD (S/P/Bld) [Vol rate/Area] mL/min/{1.73_m2} Normal >60 [facility] Comment on above: Order Comment: No: D o not add to previous draw Result Comment: Calc ulation may not be valid for patients over 70 years Performed By: #### 1 0070, 43065, 09828 ####[facility] [place] [address], [facility] GFR/1.73 sq M.predicted among non-blacks MDRD (S/P/Bld) [Vol rate/Area] mL/min/{1.73_m2} Normal >60 [facility] Comment on above: Order Comment: No: D o not add to previous draw Result Comment: Calc ulation may not be valid for patients over 70 years Performed By: #### 1 0070, 80704, 90299 ####[facility] [place] [address], [facility] Glucose [Mass/Vol] 224 mg/dL High 70-100 [facility] Comment on above: Order Comment: No: D o not add to previous draw Performed By: #### 1 0070, 27657, 30656 ####[facility] [place] [address], [place] Potassium [Moles/Vol] 3.9 mmol/L Normal 3.5-5.1 [facility] Comment on above: Order Comment: No: D o not add to previous draw Performed By: #### 1 0070, 44079, 43605 ####[facility] [place] [address], [place] Sodium [Moles/Vol] 134 mmol/L Low 136-145 [facility] Comment on above: Order Comment: No: D o not add to previous draw Performed By: #### 1 0070, 16876, 88857 ####[facility] [id number], [place] Urea nitrogen [Mass/Vol] 22 mg/dL Normal 7-25 [facility] Comment on above: Order Comment: No: D o not add to previous draw Performed By: #### 1 0070, 37841, 55903 ####[facility] [place] [address], [place] Calcium [Mass/Vol] 7.7 mg/dL Low 8.6-10.3 [facility] Comment on above: Performed By: #### 1 0070, 87155, 45219 ####[facility] [place] [address], [place] Chloride [Moles/Vol] 105 mmol/L Normal 98-107 [facility] Comment on above: Performed By: #### 1 0070, 76066, 19438 ####[facility] [place] [address], [place] CO2 [Moles/Vol] 24 mmol/L Normal 21-31 [facility] Comment on above: Performed By: #### 1 0070, 58690, 90455 ####[facility] [place] [address], [place] Creatinine [Mass/Vol] 0.81 mg/dL Normal 0.70-1.30 [facility] Comment on above: Performed By: #### 1 0, 49987, 79137 ####[facility] [id number], [facility] GFR/1.73 sq M.predicted among blacks MDRD (S/P/Bld) [Vol rate/Area] mL/min/{1.73_m2} Normal >60 [facility] Comment on above: Result Comment: Calc ulation may not be valid for patients over 70 years Performed By: #### 1 0070, 69030, 68955 ####[facility] [place] [address], [facility] GFR/1.73 sq M.predicted among non-blacks MDRD (S/P/Bld) [Vol rate/Area] mL/min/{1.73_m2} Normal >60 [facility] Comment on above: Result Comment: Calc ulation may not be valid for patients over 70 years Performed By: #### 1 0070, 60832, 23799 ####[facility] [facility] [place] [address], [facility] Glucose [Mass/Vol] 189 mg/dL High 70-100 [facility] Comment on above: Performed By: #### 1 0, 04663, 34500 ####[facility] [facility] [place] [address], [facility] Potassium [Moles/Vol] 4.3 mmol/L Normal 3.5-5.1 [facility] Comment on above: Performed By: #### 1 0, 15880, 05213 ####[facility] [place] [address], [place] Sodium [Moles/Vol] 133 mmol/L Low 136-145 [facility] Comment on above: Performed By: #### 1 0070, 52004, 59056 ####[facility] [place] [address], [place] Urea nitrogen [Mass/Vol] 20 mg/dL Normal 7-25 [facility] Comment on above: Performed By: #### 1 0070, 99773, 95793 ####[facility] [place] [address], [place] Calcium [Mass/Vol] 8.7 mg/dL Normal 8.6-10.3 [facility] Comment on above: Order Comment: No: D o not add to previous draw Performed By: #### 0 0071, 19269, 78731 ####[facility] [place] [address], [place] Chloride [Moles/Vol] 103 mmol/L Normal 98-107 [facility] Comment on above: Order Comment: No: D o not add to previous draw Performed By: #### 0 0071, 57417, 38906 ####[facility] [place] [address], [place] CO2 [Moles/Vol] 26 mmol/L Normal 21-31 [facility] Comment on above: Order Comment: No: D o not add to previous draw Performed By: #### 0 0071, 40875, 34029 ####[facility] [place] [address], [place] Creatinine [Mass/Vol] 0.74 mg/dL Normal 0.70-1.30 [facility] Comment on above: Order Comment: No: D o not add to previous draw Performed By: #### 0 0071, 03096, 98994 ####[facility] [place] [address], [place] GFR/1.73 sq M.predicted among blacks MDRD (S/P/Bld) [Vol rate/Area] mL/min/{1.73_m2} Normal >60 [facility] Comment on above: Order Comment: No: D o not add to previous draw Result Comment: Calc ulation may not be valid for patients over 70 years Performed By: #### 0 0071, 70631, 88572 ####[facility] [place] [address], [facility] GFR/1.73 sq M.predicted among non-blacks MDRD (S/P/Bld) [Vol rate/Area] mL/min/{1.73_m2} Normal >60 [facility] Comment on above: Order Comment: No: D o not add to previous draw Result Comment: Calc ulation may not be valid for patients over 70 years Performed By: #### 0 0071, 21352, 87189 ####[facility] [place] [address], [facility] Glucose [Mass/Vol] 107 mg/dL High 70-100 [facility] Comment on above: Order Comment: No: D o not add to previous draw Performed By: #### 0 0071, 33720, 65512 ####[facility] [place] [address], [facility] Potassium [Moles/Vol] 4.1 mmol/L Normal 3.5-5.1 [facility] Comment on above: Order Comment: No: D o not add to previous draw Performed By: #### 0 0071, 61104, 73746 ####[facility] [place] [address], [facility] Sodium [Moles/Vol] 133 mmol/L Low 136-145 [facility] Comment on above: Order Comment: No: D o not add to previous draw Performed By: #### 0 0071, 28829, 15062 ####[facility] [place] [address], [place] Urea nitrogen [Mass/Vol] 19 mg/dL Normal 7-25 [facility] Comment on above: Order Comment: No: D o not add to previous draw Performed By: #### 0 0071, 89681, 11433 ####[facility] CBC COMPLETE BLOOD COUNTon 0 04-08-2021 Erythrocyte distribution width (RBC) [Ratio] 14.4 % Normal 11.5-15.0 [facility] Comment on above: Order Comment: No: D o not add to previous draw Performed By: #### 5 0608 ####[facility] Hematocrit (Bld) [Volume fraction] 33.4 % Low 39.0-50.0 [facility] Comment on above: Order Comment: No: D o not add to previous draw Performed By: #### 5 0608 ####[address] Hemoglobin (Bld) [Mass/Vol] 10.9 g/dL Low 13.0-17.0 [facility] Comment on above: Order Comment: No: D o not add to previous draw Performed By: #### 5 0608 ####[address] MCH (RBC) [Entitic mass] 30.4 pg Normal 27.0-33.0 [facility] Comment on above: Order Comment: No: D o not add to previous draw Performed By: #### 5 0608 ####[facility] [place] [address].[address] MCHC (RBC) [Mass/Vol] 32.6 g/dL Normal 32.0-35.0 [facility] Comment on above: Order Comment: No: D o not add to previous draw Performed By: #### 5 0608 ####[address] MCV (RBC) [Entitic vol] 93.3 fL Normal 82.0-98.0 [facility] Comment on above: Order Comment: No: D o not add to previous draw Performed By: #### 5 0608 ####[facility] [place] [address], [facility] Nucleated RBC/100 WBC (Bld) [Ratio] 0 % Normal 0-0 [facility] Comment on above: Order Comment: No: D o not add to previous draw Performed By: #### 5 0608 ####[facility] [place] [address], [facility] PLAT CNT 228 10*3/uL Normal 150-400 [facility] Comment on above: Order Comment: No: D o not add to previous draw Performed By: #### 5 0608 ####[facility] [place] [address], [facility] RBC (Bld) [#/Vol] 3.58 10*6/uL Low 4.20-5.70 [facility] Comment on above: Order Comment: No: D o not add to previous draw Performed By: #### 5 0608 ####[facility] [place] [address], [facility] WBC (Bld) [#/Vol] 18.53 10*3/uL High 4.00-10.60 [facility] Comment on above: Order Comment: No: D o not add to previous draw Performed By: #### 5 0608 ####[facility] [place] [address], [facility] Erythrocyte distribution width (RBC) [Ratio] 14.6 % Normal 11.5-15.0 [facility] Comment on above: Performed By: #### 5 0608 ####[facility] [place] [address], [facility] Hematocrit (Bld) [Volume fraction] 35.5 % Low 39.0-50.0 [facility] Comment on above: Performed By: #### 5 0608 ####[facility] [facility].[address] Hemoglobin (Bld) [Mass/Vol] 11.5 g/dL Low 13.0-17.0 [facility] Comment on above: Performed By: #### 5 0608 ####[facility] [facility].[address] MCH (RBC) [Entitic mass] 30.5 pg Normal 27.0-33.0 [facility] Comment on above: Performed By: #### 5 0608 ####[facility] [facility].[address] MCHC (RBC) [Mass/Vol] 32.4 g/dL Normal 32.0-35.0 [facility] Comment on above: Performed By: #### 5 0608 ####[facility] [facility].[address] MCV (RBC) [Entitic vol] 94.2 fL Normal 82.0-98.0 [facility] Comment on above: Performed By: #### 5 0608 ####[facility] [facility].[address] Nucleated RBC/100 WBC (Bld) [Ratio] 0 % Normal 0-0 [facility] Comment on above: Performed By: #### 5 0608 ####[facility] [place] [address], [facility] PLAT CNT 219 10*3/uL Normal 150-400 [facility] Comment on above: Performed By: #### 5 0608 ####[facility] [place] [address], [facility] RBC (Bld) [#/Vol] 3.77 10*6/uL Low 4.20-5.70 [facility] Comment on above: Performed By: #### 5 0608 ####[facility] [facility].[address] WBC (Bld) [#/Vol] 14.37 10*3/uL High 4.00-10.60 [facility] Comment on above: Performed By: #### 5 0608 ####[facility] [facility].[address] Erythrocyte distribution width (RBC) [Ratio] 14.7 % Normal 11.5-15.0 [facility] Comment on above: Order Comment: No: D o not add to previous draw Performed By: #### 5 0608 ####[facility] [facility].[address] Hematocrit (Bld) [Volume fraction] 40.7 % Normal 39.0-50.0 [facility] Comment on above: Order Comment: No: D o not add to previous draw Performed By: #### 5 0608 ####[place] [address] [facility].[address] Hemoglobin (Bld) [Mass/Vol] 13.5 g/dL Normal 13.0-17.0 [facility] Comment on above: Order Comment: No: D o not add to previous draw Performed By: #### 5 0608 ####[facility] [place] [address].[address] MCH (RBC) [Entitic mass] 30.5 pg Normal 27.0-33.0 [facility] Comment on above: Order Comment: No: D o not add to previous draw Performed By: #### 5 0608 ####[facility] [facility].[address] MCHC (RBC) [Mass/Vol] 33.2 g/dL Normal 32.0-35.0 [facility] Comment on above: Order Comment: No: D o not add to previous draw Performed By: #### 5 0608 ####[facility] [place] [address], [facility] MCV (RBC) [Entitic vol] 92.1 fL Normal 82.0-98.0 [facility] Comment on above: Order Comment: No: D o not add to previous draw Performed By: #### 5 0608 ####[facility] [place] [address], [facility] Nucleated RBC/100 WBC (Bld) [Ratio] 0 % Normal 0-0 [facility] Comment on above: Order Comment: No: D o not add to previous draw Performed By: #### 5 0608 ####[facility] [place] [address], [facility] PLAT CNT 233 10*3/uL Normal 150-400 [facility] Comment on above: Order Comment: No: D o not add to previous draw Performed By: #### 5 0608 ####[facility] [place] [address], [facility] RBC (Bld) [#/Vol] 4.42 10*6/uL Normal 4.20-5.70 [facility] Comment on above: Order Comment: No: D o not add to previous draw Performed By: #### 5 0608 ####[facility] [place] [address], [facility] WBC (Bld) [#/Vol] 7.11 10*3/uL Normal 4.00-10.60 [facility] Comment on above: Order Comment: No: D o not add to previous draw Performed By: #### 5 0608 ####[facility] [place] [address], [facility] COOXIMETRYon 04-08-2021 COHB 1 % Normal [facility] Comment on above: Performed By: #### 7 0207 ####[facility] [place] [address], [facility] METHB 1 % Normal [facility] Comment on above: Performed By: #### 7 0207 ####[facility] [place] [address], [facility] Oxygen saturation in Blood 77.5 % High 65.0-75.0 [facility] Comment on above: Performed By: #### 7 0207 ####[facility] [place] [address], [facility] THB 10.7 g/dL Normal [facility] Comment on above: Performed By: #### 7 0207 ####[facility] [place] [address], [facility] FERRITINon 04-08-2021 Ferritin [Mass/Vol] 116 ng/mL Normal 24-336 [facility] Comment on above: Performed By: #### 1 0070, 23004, 17512 ####[facility] [facility] [place] [address], [facility] FIBRINOGENon 04-08-2021 FIBRINOGEN 362 mg/dL Normal 150-425 [facility] Comment on above: Performed By: #### 5 7307, 93493, 98797 ####[facility] [facility].[place] [id number], [facility] LACTATE BLOODon 04-08-2021 Lactate [Moles/Vol] 3.7 mmol/L High .5-2.2 [facility] Comment on above: Order Comment: No: D o not add to previous draw Result Comment: M-CR ITICAL RESULT(S) REVIEWED, CALLED TO AND READ BACK BY Kleber TRAN at 2203. Performed By: #### 1 0054 ####[facility] [place] [address], [facility] Lactate [Moles/Vol] 2.5 mmol/L High .5-2.2 [facility] Comment on above: Order Comment: No: D o not add to previous draw Performed By: #### 1 0054 ####[facility] [place] [address], [facility] Lactate [Moles/Vol] 1.0 mmol/L Normal .5-2.2 [facility] Comment on above: Performed By: #### 1 0054 ####[facility] [place] [address], [facility] MAGNESIUM BLOODon 04-08-2021 Magnesium [Mass/Vol] 2.3 mg/dL Normal 1.9-2.7 [facility] Comment on above: Order Comment: No: D o not add to previous draw Performed By: #### 1 0070, 60345, 70181 ####[facility] [place] [address], [facility] Magnesium [Mass/Vol] 1.9 mg/dL Normal 1.9-2.7 [facility] Comment on above: Performed By: #### 1 0070, 56608, 37502 ####[facility] [place] [address], [facility] Magnesium [Mass/Vol] 2.2 mg/dL Normal 1.9-2.7 [facility] Comment on above: Order Comment: No: D o not add to previous draw Performed By: #### 0 0071, 90920, 66882 ####[facility] [facility] [address], [place] PERFUSION BLOOD PANELon 03-24 BASE EXCESS -3.0 mmol/L Low -2.0-3.0 [facility] Comment on above: Performed By: #### 3 0738 ####[facility] [place] [address], [place] Glucose [Mass/Vol] 193 mg/dL High 70-105 [facility] Comment on above: Performed By: #### 3 0738 ####[facility] [place] [address], [facility] Hematocrit (Bld) [Volume fraction] 36 % Low 38-51 [facility] Comment on above: Performed By: #### 3 0738 ####[facility] [place] [address], [facility] Hemoglobin (Bld) [Mass/Vol] 12.2 g/dL Normal 12.0-17.0 [facility] Comment on above: Performed By: #### 3 0738 ####[place] [address] [place] [address], [facility] IONIZED CALCIUM 1.22 mmol/L Normal 1.12-1.32 [facility] Comment on above: Performed By: #### 3 0738 ####[facility] [place] [address], [facility] Oxygen (Bld) [Partial pressure] 131.0 mm[Hg] High 80.0-105.0 [facility] Comment on above: Performed By: #### 3 0738 ####[facility] [place] [address], [facility] PCO2 51.6 mmHg High 35.0-45.0 [facility] Comment on above: Performed By: #### 3 0738 ####[facility] [place] [address], [facility] pH (Bld) 7.28 [pH] Low 7.35-7.45 [facility] Comment on above: Performed By: #### 3 0738 ####[facility] [place] [address], [facility] Potassium [Moles/Vol] 4.4 mmol/L Normal 3.5-4.9 [facility] Comment on above: Performed By: #### 3 0738 ####[facility] [place] [address], [facility] Sodium [Moles/Vol] 139 mmol/L Normal 138-146 [facility] Comment on above: Performed By: #### 3 0738 ####[facility] [facility].[address] BASE EXCESS -2.0 mmol/L Normal -2.0-3.0 [facility] Comment on above: Performed By: #### 3 0738 ####[place] [address] [facility].[address] Glucose [Mass/Vol] 156 mg/dL High 70-105 [facility] Comment on above: Performed By: #### 3 0738 ####[place] [address] [facility].[address] Hematocrit (Bld) [Volume fraction] 36 % Low 38-51 [facility] Comment on above: Performed By: #### 3 0738 ####[place] [address] [facility].[address] Hemoglobin (Bld) [Mass/Vol] 12.2 g/dL Normal 12.0-17.0 [facility] Comment on above: Performed By: #### 3 0738 ####[place] [address] [facility].[address] IONIZED CALCIUM 1.17 mmol/L Normal 1.12-1.32 [facility] Comment on above: Performed By: #### 3 0738 ####[address] Oxygen (Bld) [Partial pressure] 196.0 mm[Hg] High 80.0-105.0 [facility] Comment on above: Performed By: #### 3 0738 ####[facility] [place] [address], [facility] PCO2 46.9 mmHg High 35.0-45.0 [facility] Comment on above: Performed By: #### 3 0738 ####[facility] [place] [address], [place] pH (Bld) 7.33 [pH] Low 7.35-7.45 [facility] Comment on above: Performed By: #### 3 0738 ####[facility] [place] [address], [place] Potassium [Moles/Vol] 4.5 mmol/L Normal 3.5-4.9 [facility] Comment on above: Performed By: #### 3 0738 ####[facility] [place] [address], [place] Sodium [Moles/Vol] 139 mmol/L Normal 138-146 [facility] Comment on above: Performed By: #### 3 0738 ####[facility] [place] [address], [place] BASE EXCESS -1.0 mmol/L Normal -2.0-3.0 [facility] Comment on above: Performed By: #### 3 0738 ####[facility] [place] [address], [place] Glucose [Mass/Vol] 133 mg/dL High 70-105 [facility] Comment on above: Performed By: #### 3 0738 ####[facility] [place] [address], [place] Hematocrit (Bld) [Volume fraction] 37 % Low 38-51 [facility] Comment on above: Performed By: #### 3 0738 ####[facility] [place] [address], [facility] Hemoglobin (Bld) [Mass/Vol] 12.6 g/dL Normal 12.0-17.0 [facility] Comment on above: Performed By: #### 3 0738 ####[facility] [id number], [facility] IONIZED CALCIUM 1.19 mmol/L Normal 1.12-1.32 [facility] Comment on above: Performed By: #### 3 0738 ####[facility] [place] [address], [facility] Oxygen (Bld) [Partial pressure] 184.0 mm[Hg] High 80.0-105.0 [facility] Comment on above: Performed By: #### 3 0738 ####[place] [id number] [place] [address], [facility] PCO2 46.6 mmHg High 35.0-45.0 [facility] Comment on above: Performed By: #### 3 0738 ####[facility] [place] [address], [facility] pH (Bld) 7.34 [pH] Low 7.35-7.45 [facility] [facility] Comment on above: Performed By: #### 3 0738 ####[facility] [place] [address], [facility] Potassium [Moles/Vol] 4.3 mmol/L Normal 3.5-4.9 [facility] Comment on above: Performed By: #### 3 0738 ####[facility] [place] [address], [place] Sodium [Moles/Vol] 139 mmol/L Normal 138-146 [facility] Comment on above: Performed By: #### 3 0738 ####[facility] [place] [address], [facility] BASE EXCESS -1.0 mmol/L Normal -2.0-3.0 [facility] Comment on above: Performed By: #### 3 0738 ####[facility] [place] [address], [facility] Glucose [Mass/Vol] 118 mg/dL High 70-105 [facility] Comment on above: Performed By: #### 3 0738 ####[facility] [place] [address], [facility] Hematocrit (Bld) [Volume fraction] 39 % Normal 38-51 [facility] Comment on above: Performed By: #### 3 0738 ####[facility] [place] [address], [facility] Hemoglobin (Bld) [Mass/Vol] 13.3 g/dL Normal 12.0-17.0 [facility] Comment on above: Performed By: #### 3 0738 ####[place] [address] [place] [address], [facility] IONIZED CALCIUM 1.17 mmol/L Normal 1.12-1.32 [facility] Comment on above: Performed By: #### 3 0738 ####[facility] [place] [address], [facility] Oxygen (Bld) [Partial pressure] 96.0 mm[Hg] Normal 80.0-105.0 [facility] Comment on above: Performed By: #### 3 0738 ####[facility] [place] [address], [facility] PCO2 41.2 mmHg Normal 35.0-45.0 [facility] Comment on above: Performed By: #### 3 0738 ####[facility] [place] [address], [place] pH (Bld) 7.38 [pH] Normal 7.35-7.45 [facility] Comment on above: Performed By: #### 3 0738 ####[facility] [place] [address], [place] Potassium [Moles/Vol] 4.3 mmol/L Normal 3.5-4.9 [facility] Comment on above: Performed By: #### 3 0738 ####[facility] [place] [address], [place] Sodium [Moles/Vol] 139 mmol/L Normal 138-146 [facility] Comment on above: Performed By: #### 3 0738 ####[facility] [place] [address], [place] PHOSPHORUS BLOODon Phosphate [Mass/Vol] 4.0 mg/dL Normal 2.5-5.0 [facility] Comment on above: Order Comment: No: D o not add to previous draw Performed By: #### 1 0070, 56915, 50606 ####[facility] [place] [address], [place] Phosphate [Mass/Vol] 3.8 mg/dL Normal 2.5-5.0 [facility] Comment on above: Order Comment: No: D o not add to previous draw Performed By: #### 0 0071, 34718, 47411 ####[facility] [place] [address], [place] POC GLUCOSE LABon 04-08-2021 Glucose [Mass/Vol] 252 mg/dL High 70-100 The Un [facility] Comment on above: Performed By: #### 8 5499 ####[facility] [place] [address], [place] Glucose [Mass/Vol] 240 mg/dL High 70-100 [facility] Comment on above: Performed By: #### 8 5499 ####[facility] [place] [address], [place] Glucose [Mass/Vol] 126 mg/dL High 70-100 [facility] Comment on above: Performed By: #### 8 5499 ####[facility] [place] [address], [place] Glucose [Mass/Vol] 178 mg/dL High 70-100 [facility] Comment on above: Performed By: #### 8 5499 ####[facility] [place] [address], [place] Glucose [Mass/Vol] 195 mg/dL High 70-100 [facility] Comment on above: Performed By: #### 8 5499 ####[facility] [place] [address], [place] Glucose [Mass/Vol] 113 mg/dL High 70-100 [facility] Comment on above: Performed By: #### 8 5499 ####[facility] [place] [address], [place] Glucose [Mass/Vol] 118 mg/dL High 70-100 [facility] Comment on above: Performed By: #### 8 5499 ####[facility] [facility] [address], [place] PORTABLE CHEST 1 VIEWon 03-24 PORTABLE CHEST 1 VIEW Normal [facility] Comment on above: Order Comment: Check Chest Tube Position, ON ARRIVAL TO CVU PROTHROMBIN TIMEon INR Coag (PPP) [Relative time] 1.20 {INR} High 0.91-1.16 [facility] Comment on above: Order Comment: No: [...] OF ACTION, CLINICALEFFECTIVENESS, AND OPTIMAL THERAPEUTIC RANGE. [id number];108:231S-246S. Performed By: #### 5 6101, 44234 ####[place] [address] PT Coag (PPP) [Time] 15.2 s High 12.3-14.8 [facility] Comment on above: Order Comment: No: D o not add to previous draw Result Comment: ALL RESULTS MUST BE INTERPRETED WITH RESPECT TO BLOOD DRAWING ARTIFACTOR DILUTION ERROR OF ANTICOAGULANT AT THE TIME OF SAMPLING. Performed By: #### 5 6101, 48588 ####[facility] [facility].[address] INR Coag (PPP) [Relative time] 1.23 {INR} High 0.91-1.16 [facility] Comment on above: Result Comment: ACCC P RECOMMENDED INR FOR WARFARIN THERAPY CONDITION INRPROPHYLAXIS OF VENOUS THROMBOSIS 2-3(HIGH-RISK SURGERY)TREATMENT OF VENOUS THROMBOSIS 2-3TREATMENT OF PULMONARY EMBOLISM 2-3PREVENTION OF SYSTEMIC EMBOLISM: 2-3 ACUTE MYOCARDIAL INFARCTION TISSUE HEART VALVES VALVULAR HEART DISEASE ATRIAL FIBRILLATION RECURRENT SYSTEMIC EMBOLISMMECHANICAL HEART VALVE 2.5-3.5 FROM: ORAL ANTICOAGULANTS. MECHANISM OF ACTION, CLINICALEFFECTIVENESS, AND OPTIMAL THERAPEUTIC RANGE. [id number];108:231S-246S. Performed By: #### 5 7307, 47400, 99580 ####[facility] [facility].[address] PT Coag (PPP) [Time] 15.5 s High 12.3-14.8 [facility] Comment on above: Result Comment: ALL RESULTS MUST BE INTERPRETED WITH RESPECT TO BLOOD DRAWING ARTIFACTOR DILUTION ERROR OF ANTICOAGULANT AT THE TIME OF SAMPLING. Performed By: #### 5 7307, 16110, 32879 ####[facility] [facility].[address] INR Coag (PPP) [Relative time] 1.05 {INR} Normal 0.91-1.16 [facility] Comment on above: Order Comment: No: [...] OF ACTION, CLINICALEFFECTIVENESS, AND OPTIMAL THERAPEUTIC RANGE. [id number];108:231S-246S. Performed By: #### 5 6101 ####[facility] [place] [address], [facility] PT Coag (PPP) [Time] 13.7 s Normal 12.3-14.8 [facility] Comment on above: Order Comment: No: D o not add to previous draw Result Comment: ALL RESULTS MUST BE INTERPRETED WITH RESPECT TO BLOOD DRAWING ARTIFACTOR DILUTION ERROR OF ANTICOAGULANT AT THE TIME OF SAMPLING. Performed By: #### 5 6101 ####[facility] [facility].[address] TROPONIN-Ion 04-08-2021 Troponin I.cardiac [Mass/Vol] 0.34 ng/mL Critically high 0.00-0.04 [facility] Comment on above: Order Comment: No: D o not add to previous draw Result Comment: M-TR OPONIN INITIAL CRITICAL HIGH; RESPUN AND RETESTEDM-CRITICAL RESULT(S) REVIEWED, CALLED TO AND READ BACK BY Kleber TRAN at 2225.REFERENCE RANGES: 0.00 - 0.04 ng/ml NORMAL 0.05 - 0.50 ng/ml INDETERMINATE > 0.50 ng/ml CONSISTENT WITH AN M.I. Performed By: #### 3 5200 ####[facility] [place] [address], [facility] POC GLUCOSE LABon 04-07-2021 Glucose [Mass/Vol] 121 mg/dL High 70-100 [facility] Comment on above: Performed By: #### 8 5499 ####[facility] [place] [address], [facility] Glucose [Mass/Vol] 165 mg/dL High 70-100 [facility] Comment on above: Performed By: #### 8 5499 ####[facility] [facility].[address] Glucose [Mass/Vol] 109 mg/dL High 70-100 [facility] Comment on above: Performed By: #### 8 5499 ####[facility] POC SARS COV2 ANTIGEN NEGATI VEon 04-07-2021 POC SARS COV2 ANTIGEN NEG Negative Normal NEGATIVE [facility] Comment on above: Result Comment: Nega [...] of clinicalsigns and symptoms consistent with COVID-19.The Vidapp COVID-19 Ag Card is a lateral flow immunoassay intended forthe qualitative detection of nucleocapsid protein antigen [id number] in direct nasal swabs from individuals within [...] Certificate ofAccreditation. Performed By: #### 3 1977 ####[facility] Pulmonary Functionon 021 Pulmonary Function Normal [facility] RBC'S 4 UNITSon 04-07-2021 CROSSMATCH INTERP 1 COMP Normal The [facility] Comment on above: Performed By: #### 8 6004 ####[facility] [place] [address], [facility] CROSSMATCH INTERP 2 COMP Normal The [facility] Comment on above: Performed By: #### 8 6004 ####[facility] [facility].[address] CROSSMATCH INTERP 3 COMP Normal [facility] Comment on above: Performed By: #### 8 6004 ####[facility] [facility].[address] CROSSMATCH INTERP 4 COMP Normal [facility] Comment on above: Performed By: #### 8 6004 ####[facility] [facility].[address] PRODUCT CODE 1 [id number] Normal The [facility] Comment on above: Performed By: #### 8 6004 ####[facility] [facility].[address] PRODUCT CODE 2 [id number] Normal The [facility] Comment on above: Performed By: #### 8 6004 ####[facility] [facility].[address] PRODUCT CODE 3 [id number] Normal The [facility] Comment on above: Performed By: #### 8 6004 ####[facility] [facility].[address] PRODUCT CODE 4 [id number] Normal The [facility] Comment on above: Performed By: #### 8 6004 ####[facility] [facility].[address] PRODUCT STATUS 1 RE Normal The [facility] Comment on above: Result Comment: Resu lt changed by IF on 04/08/2021 12:37. The previous value was XM.Result changed by IF on 04/08/2021 16:53. The previous value was IS.Result changed by IF on 04/11/2021 11:14. The previous value was XM. Performed By: #### 8 6004 ####[facility] [place] [address], [facility] PRODUCT STATUS 2 RE Normal The [facility] Comment on above: Result Comment: Resu lt changed by IF on 04/08/2021 12:37. The previous value was XM.Result changed by IF on 04/08/2021 16:53. The previous value was IS.Result changed by IF on 04/11/2021 11:14. The previous value was XM. Performed By: #### 8 6004 ####[facility] [place] [address], [facility] PRODUCT STATUS 3 RE Normal [facility] Comment on above: Result Comment: Resu lt changed by IF on 04/08/2021 12:37. The previous value was XM.Result changed by IF on 04/08/2021 16:53. The previous value was IS.Result changed by IF on 04/11/2021 11:14. The previous value was XM. Performed By: #### 8 6004 ####[facility] [place] [address], [facility] PRODUCT STATUS 4 RE Normal [facility] Comment on above: Result Comment: Resu lt changed by IF on 04/08/2021 12:37. The previous value was XM.Result changed by IF on 04/08/2021 16:53. The previous value was IS.Result changed by IF on 04/11/2021 11:14. The previous value was XM. Performed By: #### 8 6004 ####[facility] [place] [address], [facility] UNIT ABO 1 O Normal [facility] Comment on above: Performed By: #### 8 6004 ####[facility] [place] [address], [place] UNIT ABO 2 O Normal [facility] Comment on above: Performed By: #### 8 6004 ####[facility] [place] [address], [facility] UNIT ABO 3 O Normal [facility] Comment on above: Performed By: #### 8 6004 ####[facility] [place] [address], [facility] UNIT ABO 4 O Normal [facility] Comment on above: Performed By: #### 8 6004 ####[facility] [place] [address], [facility] UNIT ID 1 [id number] Normal The [facility] Comment on above: Performed By: #### 8 6004 ####[facility] [place] [address], [facility] UNIT ID 2 [id number] Normal The [facility] Comment on above: Performed By: #### 8 6004 ####[facility] [place] [address], [facility] UNIT ID 3 [id number] Normal [facility] Comment on above: Performed By: #### 8 6004 ####[facility] [place] [address], [facility] UNIT ID 4 [id number] Normal [facility] Comment on above: Performed By: #### 8 6004 ####[facility] [place] [address], [facility] UNIT RH 1 Positive Normal [facility] Comment on above: Performed By: #### 8 6004 ####[facility] [place] [address], [facility] UNIT RH 2 Positive Normal [facility] Comment on above: Performed By: #### 8 6004 ####[facility] UNIT RH 3 Positive Normal [facility] Comment on above: Performed By: #### 8 6004 ####[facility] [place] [address], [facility] UNIT RH 4 Positive Normal [facility] Comment on above: Performed By: #### 8 6004 ####[facility] TYPE AND SCREENon 04-07-2021 ABO INTERPRETATION O Normal [facility] Comment on above: Performed By: #### 6 2586 ####[facility] [place] [address], [facility] RH INTERPRETATION Positive Normal The [facility] Comment on above: Performed By: #### 6 2586 ####[facility] *MRSA/MSSA DNA NASALon 04-06 *MRSA/MSSA DNA NASAL Clinical Report: (D) Specimen: NASAL SWAB Collected: 04/06/2021 12:43 Status: Final Last Updated: 04/06/2021 16:01 MSSA DNA (Final) Negative MRSA DNA (Final) Negative Normal [facility] Comment on above: Performed By: #### 3 1595 ####[facility] [facility].[address] BASIC METABOLIC PANELon 03-24 Calcium [Mass/Vol] 8.9 mg/dL Normal 8.6-10.3 [facility] Comment on above: Order Comment: No: D o not add to previous draw Performed By: #### 1 0070, 53364 ####[facility] Chloride [Moles/Vol] 103 mmol/L Normal 98-107 [facility] Comment on above: Order Comment: No: D o not add to previous draw Performed By: #### 1 69, 03667 ####[facility] [facility] [place] [address], [facility] CO2 [Moles/Vol] 26 mmol/L Normal 21-31 [facility] Comment on above: Order Comment: No: D o not add to previous draw Performed By: #### 1 0, 46270 ####[facility] [facility] [place] [address], [facility] Creatinine [Mass/Vol] 0.78 mg/dL Normal 0.70-1.30 [facility] Comment on above: Order Comment: No: D o not add to previous draw Performed By: #### 1 0, 97388 ####[facility] [place] [address], [facility] GFR/1.73 sq M.predicted among blacks MDRD (S/P/Bld) [Vol rate/Area] mL/min/{1.73_m2} Normal >60 [facility] Comment on above: Order Comment: No: D o not add to previous draw Result Comment: Calc ulation may not be valid for patients over 70 years Performed By: #### 1 0, 12457 ####[facility] [place] [address], [facility] GFR/1.73 sq M.predicted among non-blacks MDRD (S/P/Bld) [Vol rate/Area] mL/min/{1.73_m2} Normal >60 [facility] Comment on above: Order Comment: No: D o not add to previous draw Result Comment: Calc ulation may not be valid for patients over 70 years Performed By: #### 1 0, 96117 ####[facility] [facility] [place] [address], [facility] Glucose [Mass/Vol] 101 mg/dL High 70-100 [facility] Comment on above: Order Comment: No: D o not add to previous draw Performed By: #### 1 69, 41385 ####[facility] [place] [address], [facility] Potassium [Moles/Vol] 4.1 mmol/L Normal 3.5-5.1 [facility] Comment on above: Order Comment: No: D o not add to previous draw Performed By: #### 1 69, 04038 ####[facility] [place] [address], [facility] Sodium [Moles/Vol] 134 mmol/L Low 136-145 [facility] Comment on above: Order Comment: No: D o not add to previous draw Performed By: #### 1 69, 47517 ####[facility] [place] [address], [facility] Urea nitrogen [Mass/Vol] 20 mg/dL Normal 7-25 [facility] Comment on above: Order Comment: No: D o not add to previous draw Performed By: #### 1 69, 47871 ####[facility] [facility] CBC COMPLETE BLOOD COUNTon 0 04-06-2021 Erythrocyte distribution width (RBC) [Ratio] 15.3 % High 11.5-15.0 [facility] Comment on above: Order Comment: No: D o not add to previous draw Performed By: #### 5 0608 ####[facility] [facility] [place] [address], [facility] Hematocrit (Bld) [Volume fraction] 43.0 % Normal 39.0-50.0 [facility] Comment on above: Order Comment: No: D o not add to previous draw Performed By: #### 5 0608 ####[facility] [place] [address], [facility] Hemoglobin (Bld) [Mass/Vol] 14.3 g/dL Normal 13.0-17.0 [facility] Comment on above: Order Comment: No: D o not add to previous draw Performed By: #### 5 0608 ####[facility] MCH (RBC) [Entitic mass] 30.6 pg Normal 27.0-33.0 [facility] Comment on above: Order Comment: No: D o not add to previous draw Performed By: #### 5 0608 ####[facility] MCHC (RBC) [Mass/Vol] 33.3 g/dL Normal 32.0-35.0 [facility] Comment on above: Order Comment: No: D o not add to previous draw Performed By: #### 5 0608 ####[place] [address] MCV (RBC) [Entitic vol] 92.1 fL Normal 82.0-98.0 [facility] Comment on above: Order Comment: No: D o not add to previous draw Performed By: #### 5 0608 ####[place] [address] Nucleated RBC/100 WBC (Bld) [Ratio] 0 % Normal 0-0 [facility] Comment on above: Order Comment: No: D o not add to previous draw Performed By: #### 5 0608 ####[facility] PLAT CNT 238 10*3/uL Normal 150-400 [facility] Comment on above: Order Comment: No: D o not add to previous draw Performed By: #### 5 0608 ####[address] RBC (Bld) [#/Vol] 4.67 10*6/uL Normal 4.20-5.70 [facility] Comment on above: Order Comment: No: D o not add to previous draw Performed By: #### 5 0608 ####[facility] [place] [address], [facility] WBC (Bld) [#/Vol] 6.86 10*3/uL Normal 4.00-10.60 [facility] Comment on above: Order Comment: No: D o not add to previous draw Performed By: #### 5 0608 ####[facility] [place] [address], [facility] MAGNESIUM BLOODon 04-06-2021 Magnesium [Mass/Vol] 2.0 mg/dL Normal 1.9-2.7 [facility] Comment on above: Order Comment: No: D o not add to previous draw Performed By: #### 1 0070, 44019 ####[facility] [facility] [place] [address], [facility] POC GLUCOSE LABon 04-06-2021 Glucose [Mass/Vol] 118 mg/dL High 70-100 [facility] Comment on above: Performed By: #### 8 5499 ####[facility] [facility] [place] [address], [facility] Glucose [Mass/Vol] 108 mg/dL High 70-100 [facility] Comment on above: Performed By: #### 8 5499 ####[facility] [place] [address], [facility] FACILITY Glucose [Mass/Vol] 114 mg/dL High 70-100 [facility] Comment on above: Performed By: #### 8 [id number] ####[facility] [place] [address], [facility] Glucose [Mass/Vol] 126 mg/dL High 70-100 [facility] Comment on above: Performed By: #### 8 [id number] ####[facility] [facility] URINALYSIS REFLEXon 04-06-20 21 Appearance (U) CLEAR Normal CLEAR The [facility] Comment on above: Order Comment: No: D o not add to previous drawCriteria for reflexing a culture was not met. Please call the lab [id number] within 24 hours of collection time if culture is needed Performed By: #### 3 [id number] ####[facility] [place] [address], [facility] Bilirubin Ql (U) Negative Normal NEGATIVE The [facility] Comment on above: Order Comment: No: D o not add to previous drawCriteria for reflexing a culture was not met. Please call the lab [id number] within 24 hours of collection time if culture is needed Performed By: #### 3 0965 ####[address] Color (U) YELLOW Normal YELLOW [facility] Comment on above: Order Comment: No: D o not add to previous drawCriteria for reflexing a culture was not met. Please call the lab [phone] within 24 hours of collection time if culture is needed Performed By: #### 3 [id number] ####[address] [place] [address], [facility] Glucose Ql (U) Negative Normal NEGATIVE The [facility] Comment on above: Order Comment: No: D o not add to previous drawCriteria for reflexing a culture was not met. Please call the lab [phone] within 24 hours of collection time if culture is needed Performed By: #### 3 [id number] ####[facility] [place] [address], [facility] Hemoglobin Ql (U) Negative Normal NEGATIVE The [facility] Comment on above: Order Comment: No: D o not add to previous drawCriteria for reflexing a culture was not met. Please call the lab [id number] within 24 hours of collection time if culture is needed Performed By: #### 3 [id number] ####[facility] [place] [address], [facility] KETONE Negative Normal NEGATIVE The [facility] Comment on above: Order Comment: No: D o not add to previous drawCriteria for reflexing a culture was not met. Please call the lab [id number] within 24 hours of collection time if culture is needed Performed By: #### 3 0965 ####[facility] [place] [address], [facility] LEUK JESS Negative Normal NEGATIVE [facility] Comment on above: Order Comment: No: D o not add to previous drawCriteria for reflexing a culture was not met. Please call the lab [id number] within 24 hours of collection time if culture is needed Performed By: #### 3 0965 ####[address] [place] [address], [facility] MICRO NOT DONE Normal [facility] Comment on above: Order Comment: No: D o not add to previous drawCriteria for reflexing a culture was not met. Please call the lab [id number] within 24 hours of collection time if culture is needed Result Comment: Micr oscopics not performed on urines withnegative chemical reactions unless requested in original order Performed By: #### 3 0965 ####[address] [place] [address], [facility] Nitrite Ql (U) Negative Normal NEGATIVE [facility] Comment on above: Order Comment: No: D o not add to previous drawCriteria for reflexing a culture was not met. Please call the lab [id number] within 24 hours of collection time if culture is needed Performed By: #### 3 0965 ####[address] pH (U) 6.0 [pH] Normal 5.0-8.0 [facility] Comment on above: Order Comment: No: D o not add to previous drawCriteria for reflexing a culture was not met. Please call the lab [id number] within 24 hours of collection time if culture is needed Performed By: #### 3 0965 ####[facility] [facility].[address] Protein Ql (U) Negative Normal NEGATIVE [facility] Comment on above: Order Comment: No: D o not add to previous drawCriteria for reflexing a culture was not met. Please call the lab [id number] within 24 hours of collection time if culture is needed Performed By: #### 3 0965 ####[facility] SPEC GRAV 1.019 Normal 1.015-1.020 The [facility] Comment on above: Order Comment: No: D o not add to previous drawCriteria for reflexing a culture was not met. Please call the lab [id number] within 24 hours of collection time if culture is needed Performed By: #### 3 0965 ####[facility] Vital Signs Date Time Vital Sign Value Performing Clinician Faci lity 06-01-2024 15: Body height 179.1 cm Teressa Sierra AIR BRAKE OPERATOR Work Phone: [facility] 06-01-2024 15:17040 Body mass index (BMI) [Ratio] 45.52 kg/m2 Teressa Sierra AIR BRAKE OPERATOR Work Phone: [facility] 06-01-2024 15:17040 Body temperature 98.49 [degF] Teressa Sierra AIR BRAKE OPERATOR Work Phone: [facility] 06-01-2024 15: Body weight 145.97 kg Teressa Sierra AIR BRAKE OPERATOR Work Phone: [facility] 06-01-2024 15:040 Diastolic blood pressure 68 mm[Hg] Teressa Sierra AIR BRAKE OPERATOR Work Phone: [facility] 06-01-2024 15:17040 Heart rate 62 /min Teressa Sierra AIR BRAKE OPERATOR Work Phone: [facility] 06-01-2024 15:17-0400 Respiratory rate 18 /min Teressalloyd Mariez AIR BRAKE OPERATOR Work Phone: [facility] 06-01-2024 15:17-0400 SaO2% (BldA) [Mass fraction] 95 % Teressalloyd Farfancristinz AIR BRAKE OPERATOR Work Phone: [facility] 06-01-2024 15:17-0400 Systolic blood pressure 122 mm[Hg] Teressa Farfancristinz AIR BRAKE OPERATOR Work Phone: [facility] Healthcare Encounters Encounter Date Encounter Type Care Provider Facility Start: 06-01-2024 End: 06-01-2024 Office outpatient visit 25 minutes Teressa Farfanangel AIR BRAKE OPERATOR Work Phone: [facility] Comment on above: Type 2 diabetes jennie itus without complication, without long- term current use of insulin ([facility]) (Primary Dx); Chronic kidney disease, stage 3a ([facility]) ([facility]); Mixed hyperlipidemia ([facility]); Coronary artery disease involving [place] coronary artery of [place] heart without angina pectoris ([facility]); Essential hypertension; Prostate cancer screening; Obstructive sleep apnea syndrome; Chronic obstructive pulmonary disease, unspecified COPD type ([facility]); Venous stasis of both lower extremities; Morbid (severe) obesity due to excess calories ([facility]); Body mass index (BMI) 45.0-49.9, adult ([facility]) Start: 06-01-2024 End: 06-01-2024 ambulatory TERESSA AICHHOLZ Not Available Start: 06-01-2024 End: 06-01-2024 Bamboo flowsheet Teressa Aichholz AIR BRAKE OPERATOR Work Phone: [facility] Start: 06-01-2024 End: 06-01-2024 Bamboo flowsheet Teressa Aichholz AIR BRAKE OPERATOR Work Phone: [facility] Start: 03-14-2024 End: 03-14-2024 ambulatory TERESSA AICHHOLZ Not Available Start: 03-09-2024 End: 03-09-2024 ambulatory ARIELLA [facility] Start: 12-17-2023 End: 12-17-2023 ambulatory ARIELLA [facility] Start: 12-14-2023 End: 12-14-2023 ambulatory TERESSA SIERRA Not Available Start: 12-14-2023 Patient encounter procedure Teressa Farfancristinazucena AIR BRAKE OPERATOR Work Phone: [facility] Start: 09-09-2023 End: 09-09-2023 ambulatory TERESSA FARFANCRISTINAzucena Not Available Start: 06-05-2023 End: 06-05-2023 ambulatory CATINA SALAZAR [facility] Start: 05-18-2023 End: 05-18-2023 ambulatory Mal Barnes Facility:[facility] Start: 09-03-2022 End: 09-03-2022 ambulatory Moshe Garcia Other [employer] Other Start: 09-03-2022 Office outpatient ne w 45 minutes Moshe Garcia [facility] Start: 08-18-2022 End: 08-20-2022 Evaluation and [...] Evaluation and management of inpatient MAL BARNES Facility:[facility] Procedures Date Procedure Procedure Detail Performing Clinician Start: 11-10-2021 History of coronary artery bypass grafting History of coronary artery bypass surgery Teressa Sierra AIR BRAKE OPERATOR Work Phone: Start: 05-24-2021 Antibody screen MAL BARNES Comment on above: Performed By: #### 6 [id number] ####[address] Start: 05-23-2021 EXCISION OF STERNUM, OPEN APPROACH [...] on above: Performed By: #### 6 2586 ####[address] [facility].[address] Start: 05-16-2021 EXCISION OF CHEST SK IN, EXTERNAL APPROACH AKANKSHA UP Start: 05-16-2021 RESPIRATORY VENTILAT ION, LESS THAN 24 CONSECUTIVE HOURS GUDELIA MASROOR Start: 05-15-2021 Antibody screen MAL BARNES Comment on above: Performed By: #### 6 [id number] ####[address] Start: 04-07-2021 Antibody screen MAL BARNES Comment on above: Performed By: #### 6 2586 ####[address] Plan of Treatment Date Care Activity Detail Author Start: 08-24-2025 Glaucoma screening Diabetes: R etinopathy Screening [facility] Start: 12-13-2024 Medicare Annual Well ness (AWV) Medicare Annual Wellness (AWV) [facility] Start: 09-09-2024 Pneumococcal Vaccine : 65+ Years (1 of 2 - PCV) Pneumococcal Vaccine: 65+ Years (1 of 2 - PCV) [facility] Comment on above: Postponed from 05/11 (Patient Refused) Start: 09-05-2024 End: 09-05-2024 Patient encounter procedure 09/05/2024 2:00 PM EST Office Visit [facility] [address] [place] [address] Teressa Sierra, AIR BRAKE OPERATOR [address] [place] [phone] [facility] Start: 06-17-2024 Hemoglobin A1c measurement Diabetes: Hemoglobin A1C [facility] Start: 06-01-2024 End: 06-01-2024 Patient encounter procedure 06/01/2024 3:00 PM EDT Office Visit [facility] [address] [place] [phone] Teressa Sierra, CUAUHTEMOC [address] [place] [phone] Chronic kidney disease, stage 3a (HCC) (CMS/HCC) (Primary Dx); Type 2 diabetes mellitus without complication, without long-term current use of insulin (CMS/HCC); Mixed hyperlipidemia (CMS/HCC); Coronary artery disease involving [place] coronary artery of [place] heart without angina pectoris (CMS/HCC); Essential hypertension; Prostate cancer screening [facility] Comment on above: Chronic kidney disea se, stage 3a (HCC) (CMS/HCC) (Primary Dx); Type 2 diabetes mellitus without complication, without long-term current use of insulin (CMS/HCC); Mixed hyperlipidemia (CMS/HCC); Coronary artery disease involving [place] coronary artery of [place] heart without angina pectoris (CMS/HCC); Essential hypertension; Prostate cancer screening Start: 06-01-2024 End: 06-01-2025 CBC W Auto Differential panel - Blood CBC and differential Lab Routine Chronic kidney disease, stage 3a (HCC) (CMS/HCC) Expected: 06/01/2024 (Approximate), Expires: 06/01/2025 [facility] Work Phone: Comment on above: Expected: 06/01/2024 (Approximate), Expires: 06/01/2025 Start: 06-01-2024 End: 06-01-2025 Comprehensive metabolic 2000 panel - Serum or Plasma Comprehensive metabolic panel Lab Routine Type 2 diabetes mellitus without complication, without long-term current use of insulin (CMS/HCC) Mixed hyperlipidemia (CMS/HCC) Essential hypertension Expected: 06/01/2024 (Approximate), Expires: 06/01/2025 [facility] Comment on above: Expected: 06/01/2024 (Approximate), Expires: 06/01/2025 Start: 06-01-2024 End: 06-01-2025 Hemoglobin A1c/Hemoglobin.total in Blood Hemoglobin A1c Lab Routine Type 2 diabetes mellitus without complication, without long-term current use of insulin (CMS/HCC) Expected: 06/01/2024 (Approximate), Expires: 06/01/2025 [facility] Comment on above: Expected: 06/01/2024 (Approximate), Expires: 06/01/2025 Start: 06-01-2024 End: 06-01-2025 Lipid 1996 panel - Serum or Plasma Lipid panel Lab Routine Type 2 diabetes mellitus without complication, without long-term current use of insulin (CMS/HCC) Mixed hyperlipidemia (CMS/HCC) Expected: 06/01/2024 (Approximate), Expires: 06/01/2025 [facility] Comment on above: Expected: 06/01/2024 (Approximate), Expires: 06/01/2025 Start: 06-01-2024 End: 06-01-2025 Microalbumin/Creatinine panel in random Urine Microalbumin / creatinine, urine ratio Lab Routine Type 2 diabetes mellitus without complication, without long-term current use of insulin (CMS/HCC) Essential hypertension Expected: 06/01/2024 (Approximate), Expires: 06/01/2025 [facility] Comment on above: Expected: 06/01/2024 (Approximate), Expires: 06/01/2025 Start: 06-01-2024 End: 06-01-2025 Prostate specific Ag [Mass/volume] in Serum or Plasma PSA Lab Routine Prostate cancer screening Expected: 06/01/2024 (Approximate), Expires: 06/01/2025 [facility] Comment on above: Expected: 06/01/2024 (Approximate), Expires: 06/01/2025 Start: 06-01-2024 End: 06-01-2025 Urinalysis complete panel - Urine Urinalysis with reflex microscopic (clean catch) Lab Routine Type 2 diabetes mellitus without complication, without long-term current use of insulin ([facility]) Essential hypertension Expected: 06/01/2024 (Approximate), Expires: 06/01/2025 [facility] Comment on above: Expected: 06/01/2024 (Approximate), Expires: 06/01/2025 Start: 05-20-2024 Urine screening for protein Diabetes: Urine Protein Screening [facility] Payers Date Payer Category Payer Unknown [employer] [id number] 2023-Present [address] [place] [id number] 2023 Unknown [id number] 1959 Private Health Insurance [id number] 1959 Self-pay 1944 Unknown [id number] .647 1944 Unknown [id number] [id number] .593 1944 Unknown [id number] 2.16.840.1.932786.3.579.2 .59 1944 Unknown [id number] 2.16.840.1.742187.3.579.2 .593 1944 Unknown [id number] 2.16.840.1.556910.3.579.2 .593 1944 Unknown [id number] 2.16.840.1.034536.3.579.2 .593 1944 Unknown [id number] 2.16.840.1.143227.3.579.2 .593 1944 Unknown [id number] 2.16.840.1.479899.3.579.2 .593 1944 Unknown [id number] 2.16.840.1.698315.3.579.2 .593 1944 Unknown [id number] 2.16.840.1.562011.3.579.2 .593 1944 Unknown [id number] 2.16.840.1.402152.3.579.2 .1259 1944 Unknown [id number] 2.16.840.1.693790.3.579.2 .1259 1944 Unknown [id number] 2.16.840.1.895437.3.579.2 .1259 1944 Unknown [id number] 2.16.840.1.014535.3.579.2 .1259 Unknown [id number] 2.16.840.1.215658.3.579.2 .531 Social History Date Type Detail Facility Start: 12-14-2023 End: 06-01-2024 Sex Assigned At [facility] Start: 09-07-2023 Tobacco smoking status WYIS Ex-smoke r [facility] History of tobacco use Current smoker [facility] History of tobacco use Cigarette Smoker [facility] Start: 09-07-2023 End: 12-14-2023 Cigarettes smoked current (pack per day) - Reported 0.8 [facility] Start: 09-07-2023 Tobacco use and exposure User of smokeless tobacco [facility] History of tobacco use Chews Tobacco [facility] Start: 03-14-2024 End: 06-01-2024 Alcoholic beverage intake Current drinker of alcohol (finding) [facility] Within the last year , have you been afraid of your partner or ex-partner? No [facility] Do you belong to any clubs or organizations such as pentecostalism groups, unions, fraternal or athletic groups, or school groups? Yes [facility] Are you now , , , , never or living with a partner? [facility] How often to you hav e a drink containing alcohol? 4 or more times a week [facility] How many standard dr inks containing alcohol do you have on a typical day? 5 or 6 [facility] How often do you hav e 6 or more drinks on 1 occasion? Daily or almost daily [facility] How hard is it for y ou to pay for the very basics like food, housing, medical care, and heating Not very hard [facility] Do you feel stress - tense, restless, nervous, or anxious, or unable to sleep at night because your mind is troubled all the time - these days [OSQ] Only a little [facility] (I/We) worried wheth er (my/our) food would run out before (I/we) got money to buy more. Never true [facility] In the past 12 month s, has lack of transportation kept you from medical appointments or from getting medications? No [facility] Start: 09-07-2023 Alcohol Comment 3-4 drinks 4 o r more times a week [facility] Start: 1945 Sex assigned at Not on file [facility] Medical Equipment Procedure Code Equipment Code Equipment Original Text Equi pment Identifier Dates Clinical Notes 10-11-2020 to 06-01-2024 Teressa Sierra NP - 06/01/2024 5:00 PM Celso Sierra, CUAUHTEMOC - 06/01/2024 4:59 PM Celso Sierra NP - 06/01/2024 4:59 PM Celso Sierra, CUAUHTEMOC - 06/01/2024 4:58 PM EDT Note Date & Type Note Facility 06-01-2024 History of Present illness Narrative Associated Problem(s): Diabetes mellitus, type II ([facility]) Cannot afford ozempic, although his sugars seem to be stable without it Will check labs Check blood sugars daily, notify if <70 or >200. Take medications (pills or insulin) as directed. Monitor for s/s of hypoglycemia (sweaty, dizziness, nausea, vomiting, or shakiness). Watch for increase in thirst, urination, or appetite. Inspect feet frequently monitoring for open wounds , and also recommend yearly eye exam. Pt should attempt to remain as physically active as chronic conditions allow, as well as trying to follow a diet low in carbohydrates, and simple sugars. Associated Problem(s): CAD (coronary artery disease) ([facility]) Continue current meds/dose Associated Problem(s): Essential hypertension At goal no dose changes Associated Problem(s): COPD (chronic obstructive pulmonary disease) ([facility]) Continue with dr woodruff Needs a refill of trelegy , he needs to contact them Associated Problem(s): Sleep apnea Non compliant with PAP use, machine is broke , difficulty finding DME who takes his insurance I did leave a VM on Sleep lab [facility] regarding this for them to assist Pt is seeing a museum specialist for his legs. Pt had a fasting BS of 130 Pt would like a refill on his trelegy ellipta He does not see dr woodruff til next year Images from the original note were not included. Arianne Mcqueen is a 79 y.o. male presents with chief complaint of No chief complaint on file. HPI: Hypertension This is a chronic problem. The current episode started more than 1 year ago. The problem is unchanged. The problem is controlled. Associated symptoms include peripheral edema and shortness of breath. Pertinent negatives include no anxiety, chest pain, headaches, malaise/fatigue, neck pain, orthopnea or palpitations. Agents associated with hypertension include amphetamines. Risk factors for coronary artery disease include diabetes mellitus, dyslipidemia, male gender, obesity and sedentary lifestyle. Past treatments include beta blockers, calcium channel blockers and diuretics. The current treatment provides significant improvement. There are no compliance problems. Hypertensive end-organ damage includes CAD/LA and PVD. Diabetes He presents for his follow-up diabetic visit. He has type 2 diabetes mellitus. His disease course has been stable. There are no hypoglycemic associated symptoms. Pertinent negatives for hypoglycemia include no dizziness, headaches, nervousness/anxiousness, seizures or tremors. Pertinent negatives for diabetes include no chest pain, no foot paresthesias, no polydipsia, no polyphagia, no polyuria and no visual change. There are no hypoglycemic complications. Symptoms are stable. Diabetic complications include heart disease, peripheral neuropathy and PVD. Risk factors for coronary artery disease include diabetes mellitus, dyslipidemia, hypertension, male sex, obesity and sedentary lifestyle. Current diabetic treatment includes oral agent (dual therapy) and oral agent (monotherapy). He is compliant with treatment all of the time. He rarely participates in exercise. His overall blood glucose range is 130-140 mg/dl. An RUBINA inhibitor/angiotensin II receptor fitz is not being taken. He does not see a casing builder.Eye exam is current. SUBJECTIVE: MEDICATIONS: Current Outpatient Medications Medication Instructions albuterol HFA 90 mcg/act inhaler 2 puffs, Inhalation, Every 6 hours PRN amLODIPine (NORVASC) 5 mg, Oral, Daily aspirin (ASPIRIN) 81 mg, Oral, Daily atorvastatin (LIPITOR) 40 mg, Oral, Nightly Blood Glucose Monitoring Suppl (True Metrix Air Glucose Meter) w/Device kit 1 each, Does not apply, Daily Blood Glucose Monitoring Suppl (True Metrix Go Glucose Meter) w/Device kit Does not apply carvedilol (COREG) 12.5 mg, Oral, 2 times daily with meals celecoxib (CELEBREX) 200 mg, Oral, Daily ferrous sulfate (FEROSUL) 325 mg, Oral, Daily with breakfast glipiZIDE (GLUCOTROL) 2.5 mg, Oral, Daily glucose blood (True Metrix Blood Glucose Test) test strip 1 each, Other, As needed, Use as instructed isosorbide mononitrate ER (IMDUR) 30 mg, Oral, Daily, Do not crush or chew. Lancets 33G misc Does not apply Lancets 33G misc 1 each, Does not apply, Daily spironolactone (ALDACTONE) 25 mg, Oral, Daily TraZODone & Diet Manage Prod (TRAZAMINE PO) 50 mg, Oral Trelegy Ellipta 100-62.5-25 MCG/ACT aerosol powder 1 puff, Other, Daily ALLERGIES: No Known Allergies REVIEW OF SYMPTOMS: Review of Systems Constitutional: Negative for activity change, appetite change, malaise/fatigue and unexpected weight change. HENT: Negative for ear pain, nosebleeds, sneezing, trouble swallowing and voice change. Eyes: Negative for pain, discharge and visual disturbance. Respiratory: Positive for cough and shortness of breath. Negative for apnea, chest tightness and wheezing. Cardiovascular: Positive for leg swelling. Negative for chest pain, palpitations and orthopnea. Gastrointestinal: Negative for abdominal distention, blood in stool, constipation and diarrhea. Genitourinary: Negative for decreased urine volume, difficulty urinating, dysuria and hematuria. Musculoskeletal: Negative for neck pain. Skin: Negative for color change. Neurological: Negative for dizziness, tremors, seizures and headaches. Psychiatric/Behavioral: Negative for agitation, decreased concentration, hallucinations, self-injury and suicidal ideas. The patient is not nervous/anxious. Hematological: Negative for adenopathy. Does not bruise/bleed easily. Endocrine: Negative for cold intolerance, heat intolerance, polydipsia, polyphagia and polyuria. Allergic/Immunologic: Negative for environmental allergies and food allergies. PAST MEDICAL HISTORY Past Medical History: Diagnosis Date Anemia CAD (coronary artery disease) ([facility]) Constipation COPD (chronic obstructive pulmonary disease) ([facility]) Diabetes mellitus, type II ([facility]) Hearing decreased Heart disease Hip pain, right Hypercholesterolemia ([facility]) Hypertension ([facility]) Iron deficiency Myocardial infarction ([facility]) Osteoarthritis of both knees, unspecified osteoarthritis type Pneumonia Sleep apnea Superficial phlebitis and thrombophlebitis of left lower extremity Superficial phlebitis and thrombophlebitis of right lower extremity Varicose veins of bilateral lower extremities with pain Past Surgical History: Procedure Laterality Date APPENDECTOMY CARDIAC SURGERY 04/12/2021 bypass x [address] ANGIOGRAM HEART CORONARY 09/03/2021 CT ANGIOGRAM TAVR 09/03/2021 KNEE ARTHROPLASTY Right 2010 Dr. Ron KNEE ARTHROPLASTY Left 2006 Dr. Lester NOSE SURGERY family history includes Cancer in his sister; Diabetes in his father and mother; Heart disease in his father and mother; Hypertension in his father and mother; Pulmonary embolism in his sister; Stroke in his brother. OBJECTIVE: Visit Vitals BP 122/68 (BP Location: Left arm, Patient Position: Sitting, BP Cuff Size: Adult long) Pulse 62 Temp 98.5 F (Temporal) Resp 18 Ht 5' 10.5 Wt 321 lb 12.8 oz SpO2 95% BMI 45.52 kg/m Smoking Status Former BSA 2.7 m Physical Exam Vitals and nursing note reviewed. Constitutional: General: He is not in acute distress. Appearance: Normal appearance. He is obese. HENT: Head: Normocephalic. Right Ear: External ear normal. Left Ear: External ear normal. Nose: Nose normal. Mouth/Throat: Mouth: Mucous membranes are moist. Pharynx: Oropharynx is clear. Eyes: Extraocular Movements: Extraocular movements intact. Conjunctiva/sclera: Conjunctivae normal. Neck: Vascular: No carotid bruit. Cardiovascular: Rate and Rhythm: Normal rate and regular rhythm. Pulses: Normal pulses. Heart sounds: Normal heart sounds. Pulmonary: Effort: Pulmonary effort is normal. Breath sounds: Normal breath sounds. No wheezing or rales. Abdominal: General: Bowel sounds are normal. There is no distension. Palpations: Abdomen is soft. Tenderness: There is no abdominal tenderness. Musculoskeletal: Cervical back: Neck supple. Right lower leg: Edema present. Left lower leg: Edema present. Lymphadenopathy: Cervical: No cervical adenopathy. Skin: General: Skin is warm and dry. Capillary Refill: Capillary refill takes 2 to 3 seconds. Neurological: General: No focal deficit present. Mental Status: He is alert. Psychiatric: Mood and Affect: Mood normal. Behavior: Behavior normal. Thought Content: Thought content normal. Judgment: Judgment normal. ASSESSMENT AND PLAN: No follow-ups on file. Problem List Items Addressed This Visit Sleep apnea Non compliant with PAP use, machine is broke , difficulty finding DME who takes his insurance I did leave a VM on [facility] regarding this for them to assist COPD (chronic obstructive pulmonary disease) ([facility]) Continue with dr woodruff Needs a refill of trelegy , he needs to contact them CAD (coronary artery disease) ([facility]) Continue current meds/dose Diabetes mellitus, type II ([facility]) - Primary Cannot afford ozempic, although his sugars seem to be stable without it Will check labs Check blood sugars daily, notify if <70 or >200. Take medications (pills or insulin) as directed. Monitor for s/s of hypoglycemia (sweaty, dizziness, nausea, vomiting, or shakiness). Watch for increase in thirst, urination, or appetite. Inspect feet frequently monitoring for open wounds , and also recommend yearly eye exam. Pt should attempt to remain as physically active as chronic conditions allow, as well as trying to follow a diet low in carbohydrates, and simple sugars. Relevant Orders Comprehensive metabolic panel Lipid panel Hemoglobin A1c Microalbumin / creatinine, urine ratio Urinalysis with reflex microscopic (clean catch) Essential hypertension (Chronic) At goal no dose changes Relevant Orders Comprehensive metabolic panel Microalbumin / creatinine, urine ratio Urinalysis with reflex microscopic (clean catch) Venous stasis of both lower extremities Morbid (severe) obesity due to excess calories (CMS/HCC) Chronic kidney disease, stage 3a (HCC) (CMS/HCC) Relevant Orders CBC and differential Body mass index (BMI) 45.0-49.9, adult (CMS/HCC) Mixed hyperlipidemia (CMS/HCC) Relevant Orders Comprehensive metabolic panel Lipid panel Prostate cancer screening Relevant Orders PSA documented in this encounter [facility] 03-09-2024 Note Cardiovascular Medic [facility] SUBJECTIVE Chief Complaint Patient presents with Follow-up 3 month follow up Arianne Mcqueen is a 78 y.o. male here for follow-up. HPI Patient here for 6 mo follow up CAD, hypertension, and chronic diastolic heart failure. Had SILVIA's last month. Denies chest pain, palpitations, and lightheadedness/syncope. Gets very winded with exertion. He does see Dr. Woodruff for this. Seeing wound care for his [...] coronary artery bypass surgery Nonsustained ventricular tachycardia ([facility]) Syncope and collapse Wound of sternal region Chronic diastolic congestive heart failure ([facility]) COVID-19 Hyperglycemia Metabolic syndrome MGUS (monoclonal gammopathy of unknown significance) Pericardial effusion Pneumonia, bacterial Solitary pulmonary nodule Arthritis of right hip Bilateral lower extremity edema Constipation COPD (chronic obstructive pulmonary disease) ([facility]) Encounter for subsequent annual wellness visit (AWV) in Medicare patient Hearing decreased Hypercholesterolemia Hyperpigmentation Iron deficiency Lymphedema Lymphorrhea Myocardial infarction ([facility]) Nicotine dependence Osteoarthritis of both knees Papillomatosis Sleep apnea Morbid obesity ([facility]) Venous stasis ulcer of right lower extremity ([facility]) Wound cellulitis Diabetes mellitus, type II ([facility]) [facility] (current) use of inhaled steroids Ulcer of lower extremity ([facility]) Past Medical History: Diagnosis Date CHF (congestive heart failure) ([facility]) Coronary artery disease Hyperlipidemia Hypertension Pericardial [...] Venous stasis skin (more content not included)... [facility] 12-17-2023 Note Patient here for 6 m o follow up CAD, hypertension, and chronic diastolic heart failure. Had SILVIA's last month. Denies chest pain, palpitations, and lightheadedness/syncope. Gets very winded with exertion. He does see Dr. Woodruff for this. Seeing wound care for his LE. Had labs drawn this morning. Review of Systems Constitutional: Positive for malaise/fatigue. Cardiovascular: Positive for dyspnea on exertion and leg swelling. Skin: Positive for dry skin and poor wound healing. All other systems reviewed and are negative. [facility] 12-17-2023 Note Cardiovascular Medic [facility] SUBJECTIVE Chief Complaint Patient presents with Coronary Artery Disease Hypertension Arianne Mcqueen is a 78 y.o. male here for follow-up. HPI Patient here for 6 mo follow up CAD, hypertension, and chronic diastolic heart failure. Had SILVIA's last month. Denies chest pain, palpitations, and lightheadedness/syncope. Gets very winded with exertion. He does see Dr. Woodruff for this. Seeing wound care for his [...] edema Constipation COPD (chronic obstructive pulmonary disease) (CMS/HCC) Encounter for subsequent annual wellness visit (AWV) in Medicare patient Hearing decreased Hypercholesterolemia Hyperpigmentation Iron deficiency Lymphedema Lymphorrhea Myocardial infarction (CMS/HCC) Nicotine dependence Osteoarthritis of both knees Papillomatosis Sleep apnea Morbid obesity (CMS/HCC) Venous stasis ulcer of right lower extremity (CMS/HCC) Wound cellulitis Past Medical History: Diagnosis Date CHF (congestive heart failure) (CMS/HCC) Coronary artery disease Hyperlipidemia Hypertension Pericardial effusion [...] le+ Pitting Edema (more content not included)... [facility] 06-05-2023 Note ID Cardiology - [facility] Subjective Arianne Mcqueen is a [...] He was resuscitated and admitted to the [facility]. His initial investigation was negative. He was [...] In August 2021 he was admitted to [facility] and then transferred to [facility] due to COVID infection and large pericardial effusion. He was treated with diuretics. CTA of the chest August 2021 found effusion to be moderate and did not necessitate pericardiocentesis. He has dyspnea on exertion when walking and doing physical activity. No chest pain. He has bilateral leg swelling. He is in NYHA class II-III. He reports that he ran out of [employer] over the past 5 days. Recent testing: [...] worsening renal funct (more content not included)... [facility] 09-03-2022 Evaluation note Encounter Date Diagnosis [...] have been reviewed. Hospital notes from the [facility] from his prior admission on 08/18/2022 are [...] years ago and was just admitted to [facility] with pneumonia a couple of weeks ago. [...] as documented in the electronic medical record. [facility] Other 09-15-2022 NotePROCEDURE: XR HIP RT 2 3V WO PELVIS HISTORY: Pain in right hip joint COMPARISON: XR pelvis 09/15/2021 FINDINGS: BONES:Complete loss of the joint space with [id number]-[id number] articulation. Large periarticular degenerative osteophytes. No fracture, dislocation, bone lesion. SOFT TISSUES:No visible soft tissue swelling. EFFUSION:None visible. OTHER: Atherosclerotic disease. IMPRESSION: 1. 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 2. No appreciable acute abnormality. Electronically authenticated by: NOREEN KELLY Date: 2022-05-08 10:48[id number] [facility]The [facility] NotePatient Outreach ([facility]) ARIANNE MCQUEEN ([id number]) 1945 M Date Time Provider Department 10/11/20 TERRANCE CABALLERO During your visit today, we recorded the following information about you: Allergies As of Date: 10/11/2020 (No Known Allergies) Date Reviewed: 04/21/2020 Reviewed by: Willie Sotelo - Fully Assessed Order(s):SARS-COVID VACCINE 1ST DOSE APPT [[id number]] Order #: [id number] FUTURE Prescriptions as of 10/11/2020 Sig: TRAZODONE [...] [I73.9] 08/19/2012 Letter Text Encounter Status:Closed by [employer], PRODUSER on 10/15/20[facility] Evaluation note* Diagnosis Type 2 diabetes mellitus without complication, without long-term current use of insulin (CMS/HCC)- Primary Chronic kidney disease, stage 3a (HCC) (CMS/HCC) Mixed hyperlipidemia (CMS/HCC) Mixed hyperlipidemia Coronary artery disease involving [place] coronary artery of [place] heart without angina pectoris (CMS/HCC) Essential hypertension Unspecified essential hypertension Prostate cancer screening Special screening for malignant neoplasm of prostate Obstructive sleep apnea syndrome Obstructive sleep apnea (adult) (pediatric) Chronic obstructive pulmonary disease, unspecified COPD type (CMS/HCC) Venous stasis of both lower extremities Morbid (severe) obesity due to excess calories (CMS/HCC) Body mass index (BMI) 45.0-49.9, adult (CMS/HCC) documented in this encounter [facility] N[facility]ative - Reported* Type Description Date Medical History diabetes mallitus Medical History HTN Surgical History knee replacement 2010 [facility] Other Summary Purpose Family History No Family [...] content) DATE CREATED AUTHOR 09/01/2021 [facility] DATE CREATED AUTHOR AUTHOR'S ORGANIZ ATION 04/06/2022 [facility] DATE CREATED AUTHOR AUTHOR'S ORGANIZ ATION 11/04/2022 [facility] DATE CREATED AUTHOR AUTHOR'S ORGANIZ ATION 11/12/2023 [facility] DATE CREATED AUTHOR AUTHOR'S ORGANIZ ATION 03/31/2024 [facility] DATE CREATED AUTHOR AUTHOR'S ORGANIZ ATION 06/03/2024 [facility] d[facility] Specialists EPIC REASON FOR VISIT (unrecogniz ed section and content) Right Hip Pain Care Teams (unrecognized sec tion and content) Film Touch Up Inspector Relationship Specialty Start Date End Date Mal Barnes MD [address], [place] [id number] PCP - External PCP Family Medicine 04/24/23 Gilberto Stockton MD [address] [place] [phone] PCP - Devoted 08/24/23 Gilberto Stockton MD [address] [place] [phone] PCP - General Family Medicine 03/09/24 Teressa Sierra NP [address] [place] [phone] Nurse Practitioner Family Medicine 09/09/23 Film Touch Up Inspector Relationship Specialty Start Date End Date Mal Barnes MD [address] [place], [place] [id number] PCP - External PCP Family Medicine 04/24/23 Gilberto Stockton MD [address] [place] [phone] PCP - Devoted 08/24/23 Gilberto Stockton MD [address] [place] [phone] PCP - General Family Medicine 03/09/24 Teressa Sierra NP [address] [place] [phone] Nurse Practitioner Family Medicine 09/09/23 FOR RECORDS PERTAINING TO PATIENTS WHO ARE [...] BE BASED ON THE PRIMARY CLINICAL RECORDS. [employer] [facility]. provides no warranty or guarantee of the accuracy or completeness of information in this document.
== END 2024-06-08 13:59 | disposition home or self-care (01) ==
LOC: WC 13:58
PROVIDERS: PCP Nurse Practitioner; Visit Provider Physician Assistant
DX: I87.313 Chronic venous hypertension (idiopathic) with ulcer of bilateral lower extremity (principal); L97.218 Non-pressure chronic ulcer of right calf with other specified severity; L97.822 Non-pressure chronic ulcer of other part of left lower leg with fat layer exposed
CPT/HCPCS: 29581

== ENCOUNTER 2024-06-14 15:16 | Outpatient (OUT) | payer OTHER, SELFPAY ==
--- OUTSIDE RECORDS SUMMARY | 2024-06-14 15:21 | XMS_ITS | CCD ---
Author Organization [facility] Care Team Providers Care Dental Laboratory Assistant Name Role Phone MAL BARNES Primary Care Unavailable PAY, ROBIN Referring Unavailable MASROOR, GUDELIA Admitting Unavailable MASROOR, GUDELIA Attending Unavailable AKANKSHA UP Surgeon Unavailable HI Procedure Practitioner Unavailab le HI Procedure Practitioner Unavailab le MOLLY, GUDELIA Surgeon [...] Admitting Unavailable HOUSE, DR MENEZES Attending Unavailable WASCO, DR MENEZES Primary Care Unavailable MOLLY, DR MENEZES Consulting Unavailable ROBIN, DR NOREEN Oneill Consulting Unavailable MOUKARBEL, DR DOMINIQUE Admitting Unavailable MOUKARBEL, DR DOMINIQUE Attending Unavailable HOUSE, DR MENEZES Primary Care Unavailable MOUKARBEL, DR DOMINIQUE Consulting Unavailable MOUKARBEL, DR DOMINIQUE Admitting Unavailable MOUKARBEL, DR DOMINIQUE Attending Unavailable WASCO, DR MENEZES Primary Care Unavailable CATHERINE, DR JOHANA Alvarado Consulting Unavailable MOUKARBEL, DR [...] MD Unavailable Gilberto Stockton MD Unavailable Mariela CONTINUITY TESTER, Teressa Unavailable Gilberto Stockton MD Primary Care Provider Medications Current Medications Medication Drug Class(es) Dates Sig (Normalized) Sig (Original) [id number] 200 actuat albuterol 0.09 mg/actuat metered dose inhaler (4 sources) beta2-Adrenergic Agonist take 2 puff(s) by inhalation every six hours for wheezing albuterol HFA 90 mcg/act inhaler Inhale 2 puffs every 6 (six) hours if needed for shortness of breath or wheezing Active amLODIPine 5 mg oral tablet (5 sources) Dihydropyridine Calcium Channel Fitz take 1 tablet by mouth in the morning amLODIPine (Norvasc) 5 MG tablet Take 5 mg by mouth in the morning. Active take 1 tablet by donato th every twenty-four hours amLODIPine Besylate 10 MG 1 tablet Orall y Once a day Active aspirin 81 mg chewable tablet (4 sources) Platelet Aggregation Inhibitor, Nonsteroidal Anti-inflammatory Drug ASPIRIN 81 MG chewable tablet Chew 81 mg in the morning. 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 (CMS/HCC) , Atherosclerosis of telida coronary artery of telida heart without angina pectoris (CMS/HCC) , Mixed hyperlipidemia (CMS/HCC) Take 1 tablet (40 mg) by mouth at bedtime Take 40 mg by mouth at bedtime 90 tablet 06/13/2024 09/11/2024 Active Blood Glucose Monitoring Suppl (True Metrix Air Glucose Meter) w/Device kit (4 sources) Blood Glucose Monitoring Suppl (True Metrix Air Glucose Meter) w/Device kit 1 each Daily Active Blood Glucose Monitoring Suppl (True Metrix Go Glucose Meter) w/Device kit (4 sources) Blood Glucose Monitoring Suppl (True Metrix Go Glucose Meter) w/Device kit Active carvedilol 12.5 mg oral tablet (4 sources) alpha-Adrenergic Fitz, beta-Adrenergic Fitz Start: 2023 take 1 tablet by mouth in the morning carvedilol (Coreg) 12.5 MG tablet Indications: Atherosclerotic heart disease of telida coronary artery without angina pectoris ([facility]) Take 1 tablet (12.5 mg) by mouth in the morning and 1 tablet (12.5 mg) in the evening. Take with meals. 180 tablet 1 12/25/2023 Active celecoxib 200 mg oral capsule (4 sources) Nonsteroidal Anti-inflammatory Drug Start: 2023 take 1 capsule by mouth once daily celecoxib (CeleBREX) 200 MG capsule Take 200 mg by mouth Daily 03/23/2024 Active ferrous sulfate 325 mg oral tablet (4 sources) take 1 tablet by mouth at mealtime ferrous sulfate (FeroSul) 325 (65 Fe) MG tablet Take 325 mg by mouth in the morning. Take with meals. Active 30 actuat fluticasone furoate 0.1 mg/actuat / umeclidinium 0.0625 mg/actuat / vilanterol 0.025 mg/actuat dry powder inhaler (4 sources) Anticholinergic, Corticosteroid, beta2-Adrenergic Agonist Start: 2023 Trelegy Ellipta 100-62.5-25 MCG/ACT aerosol powder 1 puff by Other route Daily 12/24/2023 Active furosemide 40 mg oral tablet (1 source) Loop Diuretic take 1 tablet by mouth every twenty-four hours Furosemide 40 MG 1 tablet Orally Once a day Active glipiZIDE 5 mg oral tablet (4 sources) Sulfonylurea Start: 2023 End: 2023 take 0.5 tablet by mouth once daily glipiZIDE (Glucotrol) 5 MG tablet Indications: Type 2 diabetes mellitus without complication, without long-term current use of insulin ([facility]) Take 0.5 tablets (2.5 mg) by mouth Daily 45 tablet 1 03/25/2024 06/23/2024 Active 24 hr isosorbide mononitrate 30 mg extended release oral tablet (4 sources) Nitrate Vasodilator take 1 tablet by [...] hrs Active spironolactone 25 mg oral tablet (4 sources) Aldosterone Antagonist Start: 2023 take 1 tablet by mouth once daily spironolactone (Aldactone) 25 MG tablet Indications: Localized edema Take 1 tablet (25 mg) by mouth Daily 90 tablet 1 12/25/2023 Active TraZODone & Diet Manage Prod (TRAZAMINE PO) (4 sources) TraZODone & Diet Manage Prod (TRAZAMINE [...] complication, without long-term current use of insulin ([facility]) Inject 0.5 mg under the skin 1 [...] Date Documented Date Episodic/Chronic Acute myocardial infarction (4 sources) Myocardial infarction; Translations: [Acute myocardial infarction, unspecified] Onset: 09-08-2023 09-08-2023 Chronic Aortic; peripheral; and visceral artery aneurysms (4 sources) Dilatation of aorta; Translations: [Aortic ectasia, unspecified site] Onset: 03-14-2024 03-14-2024 Chronic Cardiac dysrhythmias (5 sources) Unspecified atrial fibrillation; Translations: [Ventricular tachycardia] Onset: 07-03-2021 03-14-2024 Chronic Chronic kidney disease (6 sources) Chronic kidney disease stage 3A ; Translations: [Chronic kidney disease, stage 3a ([facility])] Onset: 03-14-2024 03-14-2024 Chronic Chronic obstructive pulmonary disease and bronchiectasis (6 sources) Chronic obstructive lung disease; Translations: [Chronic obstructive pulmonary disease, unspecified] Onset: 09-08-2023 09-08-2023 Chronic Chronic ulcer of skin (4 sources) Chronic ulcer of lower extremity; Translations: [Non-pressure chronic ulcer of unspecified part of unspecified lower leg with unspecified severity] Onset: 03-14-2024 03-14-2024 Chronic Congestive heart failure; nonhypertensive (15 sources) Chronic diastolic (congestive) heart failure; Translations: [Acute on chronic diastolic (congestive) heart failure] Onset: 07-14-2022 Chronic Coronary atherosclerosis and other heart disease (18 sources) Atherosclerotic heart disease of telida coronary artery without angina pectoris; Translations: [Atherosclerotic heart disease of telida coronary artery with other forms of angina pectoris] Onset: 08-29-2021 Chronic Diabetes mellitus without complication (6 sources) Type 2 diabetes mellitus; Translations: [Type 2 diabetes mellitus without complications] Onset: 09-08-2023 03-14-2024 Chronic Disorders of lipid metabolism (12 sources) Pure hypercholesterolemia, unspecified; Translations: [Mixed hyperlipidemia] Onset: 08-29-2022 Resolved: 06-01-2024 06-01-2024 Chronic Essential hypertension (12 sources) Essential (primary) hypertension; Translations: [Essential hypertension] Onset: 04-14-2022 Chronic Hypertension with complications and secondary hypertension (1 source) Hypertensive heart and chronic kidney disease with heart failure and stage 1 through stage 4 chronic kidney disease, or unspecified chronic kidney disease; Translations: [HTN HRT CKD W/HF STAGE 1-4/UNS CKD] Onset: 08-29-2022 Chronic Neoplasms of unspecified nature or uncertain behavior (4 sources) Monoclonal gammopathy of uncertain significance; Translations: [Monoclonal gammopathy] Onset: 08-19-2012 12-14-2023 Chronic Osteoarthritis (11 sources) Osteoarthritis of right hip joint; Translations: [Unilateral primary osteoarthritis, right hip] Onset: 2022 Chronic Other aftercare (1 source) 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; Translations: [INTEGRATION TECHNICIAN CURRENT USE OF ASPIRIN] Onset: 08-29-2022 Episodic Other aftercare (1 source) detention (current) use of 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/antip latelets; Translations: [INTEGRATION TECHNICIAN ANTITHROMBOT/ANTIPLAT LETS] Onset: 08-29-2022 Episodic Other aftercare (1 source) Other termination clerk (current) drug therapy; Translations: [OTH INTEGRATION TECHNICIAN CURRENT DRUG THERAPY] Onset: 08-29-2022 Episodic Other aftercare (1 source) detention (current) use of oral hypoglycemic drugs; Translations: [INTEGRATION TECHNICIAN USE ORAL HYPOGLYCEMIC DX] Onset: 08-29-2022 Episodic Other circulatory disease (1 source) Personal history of sudden cardiac arrest; Translations: [PERSONAL HISTORY SUDDEN CARD ARREST] Onset: 08-29-2022 Episodic Other connective tissue disease (1 source) History of total knee arthroplasty; Translations: [Presence of right artificial knee joint] Chronic Other diseases of veins and lymphatics (4 sources) Non-infectious disorder of lymphatics; Translations: [Other specified noninfective disorders of lymphatic vessels and lymph nodes] Onset: 12-17-2023 03-14-2024 Chronic Other diseases of veins and lymphatics (4 sources) Lymphedema; Translations: [Lymphedema, not elsewhere classified] Onset: 12-17-2023 03-14-2024 Chronic Other ear and sense organ disorders (4 sources) Decreased hearing ; Translations: [Unspecified hearing [...] Chronic Other nutritional; endocrine; and metabolic disorders (6 sources) Obesity caused by energy imbalance; Translations: [Morbid (severe) obesity due to excess calories] Onset: 09-09-2023 03-14-2024 Chronic Other nutritional; endocrine; and metabolic disorders (6 sources) Body mass index 40+ - severely obese; Translations: [Body mass index (BMI) 45.0-49.9, adult] Onset: 03-14-2024 03-14-2024 Chronic Other screening for suspected conditions (not mental disorders or infectious disease) (6 sources) Patient encounter status; Translations: [Encounter for screening for malignant neoplasm of prostate] Onset: 06-01-2024 06-01-2024 Episodic Peripheral and visceral atherosclerosis (4 sources) Peripheral vascular disease; Translations: [Peripheral vascular disease, unspecified] Onset: 08-19-2012 03-14-2024 Chronic Pneumonia (except that caused by tuberculosis or sexually transmitted disease) (1 source) Unspecified bacterial pneumonia; Translations: [UNSPECIFIED BACTERIAL PNEUMONIA] Onset: 08-29-2022 Episodic Residual codes; unclassified (1 source) Obstructive sleep apnea (adult) (pediatric); Translations: [OBSTRUCTIVE SLEEP APNEA] Onset: 08-29-2022 Chronic Residual codes; unclassified (4 sources) Sleep apnea; Translations: [Sleep apnea, unspecified] [...] septic shock] Onset: 08-18-2022 Episodic Substance-related disorders (4 sources) Nicotine dependence; Translations: [Nicotine dependence, unspecified, [...] Translations: [Other pericardial effusion (noninflammatory)] Onset: 07-30-2022 Past or Other Problems Problem Classification Problem Date Documented Da te Episodic/Chronic Coronary atherosclerosis and other heart disease (3 sources) Presence of aortocoronary bypass graft; Translations: [PRESENCE AORTOCORONARY BYPASS GRAFT] Onset: 05-03-2022 Episodic Diabetes mellitus with complications (5 sources) Type 2 diabetes mellitus with diabetic chronic kidney disease; Translations: [Type 2 diabetes mellitus with ulcer] Onset: 08-29-2022 Resolved: 03-14-2024 03-14-2024 Chronic Mood disorders (4 sources) Mood disorders Onset: 12-14-2023 12-14-2023 Nutritional deficiencies (4 sources) Iron deficiency; Translations: [Iron deficiency] Onset: 09-08-2023 09-08-2023 Episodic Other and unspecified benign neoplasm (4 sources) Benign neoplastic disease; Translations: [Benign neoplasm, unspecified site] Onset: 12-14-2023 12-14-2023 Episodic Other diseases of veins and lymphatics (6 sources) Venous insufficiency of leg; Translations: [Other specified disorders of veins] Onset: 12-14-2023 12-14-2023 Episodic Other gastrointestinal disorders (4 sources) Constipation; Translations: [Constipation, unspecified] Onset: 09-08-2023 09-08-2023 Episodic Other lower respiratory disease (4 sources) Cough; Translations: [Cough] Onset: 07-03-2021 12-14-2023 Episodic Other lower respiratory disease (4 sources) Solitary nodule of lung; Translations: [Solitary pulmonary nodule] Onset: 06-05-2023 12-14-2023 Episodic Other non-traumatic joint disorders (4 sources) Pain in right hip; Translations: [PAIN IN RIGHT HIP] Onset: 05-08-2022 Episodic Nara-; endo-; and myocarditis; cardiomyopathy (except that caused by tuberculosis or sexually transmitted disease) (5 sources) Pericardial effusion (noninflammatory); Translations: [Pericardial effusion] Onset: 08-29-2021 12-14-2023 Episodic Residual codes; unclassified (4 sources) Bilateral lower limb edema; Translations: [Localized edema] Onset: 09-08-2023 09-08-2023 Episodic Residual codes; unclassified (4 sources) Edema; Translations: [Edema, unspecified] Onset: 07-03-2021 Resolved: 06-01-2024 12-14-2023 Episodic Syncope (4 sources) Syncope and collapse; Translations: [Syncope and collapse] Onset: 03-20-2021 12-14-2023 Episodic Unclassified (1 source) Other pericardial effusion (noninflammatory); Translations: [Other pericardial effusion (noninflammatory)] Onset: 06-05-2023 Varicose veins of lower extremity (12 sources) Varicose veins of lower extremity; Translations: [Varicose veins of bilateral lower extremities with pain] Onset: 09-08-2023 09-08-2023 Episodic Results Test Name Value Interpretation Reference Range Facility 36on 03-29-2024 36 Regarding stress haroldo t result from 03/17/2024: CUAUHTEMOC Freeman MA Stress test looks fine No ischemia noted and no reversible defect noted. Patient informed. Normal [facility] Office Visiton 03-09-2024 Follow-up visit [id number] Luis M Mcqueen 1945 M Date Provider Department Center 03/09/2024 ARIELLA GRAVES SHILPI Santiago Family History Problem Relation Age of Onset Coronary artery disease Mother Family Status - Relation Status Age at Mother Level of Service:41734 HI OFFICE/OUTPATIENT ESTABLISHED MOD MDM 30 MIN Reason for Visit and Comments: Follow-up [086850] - 3 month follow up Normal [facility] Orders Onlyon 03-09-2024 Orders Only [id number] Luis M Mcqueen 1945 M Date Provider Department Center 03/09/2024 LIBRADO CALDERON Family History Problem Relation Age of Onset Coronary artery disease Mother Family Status - Relation Status Age at Mother Normal [facility] 36on 01-02-2024 36 BP is looking good. Continue to hold amlodipine. Thanks [facility] 37on 12-17-2023 37 *Hold amlodipine *We will call you with a plan regarding your water pill. *Continue to check your blood pressure. Write down your readings. We will call you in 2 weeks for your readings. [facility] Office Visiton 12-17-2023 Follow-up visit [id number] Luis M Mcqueen 1945 M Date Provider Department Center 12/17/2023 ARIELLA GRAVES [facility] Family History Problem Relation Age of Onset Coronary artery disease Mother Family Status - Relation Status Age at Mother Level of Service:87636 HI OFFICE/OUTPATIENT ESTABLISHED MOD MDM 30 MIN Reason for Visit and Comments: Coronary Artery Disease [187] Hypertension [812047] [facility] Office Visiton 06-05-2023 Follow-up visit [id number] Luis M Mcqueen 1945 M Date Provider Department Center 06/05/2023 CATINA ROBERTS [facility] Family History Problem Relation Age of Onset Coronary artery disease Mother Family Status - Relation Status Age at Mother Level of Service:06900 HI OFFICE/OUTPATIENT ESTABLISHED LOW MDM 20-29 MIN Reason for Visit and Comments: Follow-up [382890] Coronary Artery Disease [187] Congestive Heart Failure [127] [facility] BNPon 08-20-2022 Natriuretic peptide B (Bld) [Mass/Vol] 1748.0 pg/mL Normal <=1,800.0 [facility] Comment on above: Performed By: #### P OCGLUC #### [facility] [address] [address] [address] Deidre Tijerina CBC AUTO DIFFon 08-20-2022 BASO # 0.0 103/ul Normal 0.0-0.1 [facility] Comment on above: Performed By: #### C BC #### [facility] [address] [address] [address] Deidre Tijerina Basophils/100 WBC (Bld) 0.1 % Critically low 0.2-2.0 [facility] Comment on above: Performed By: #### C BC #### [facility] [address] [address] [address] Deidre Tijerina EO # 0.0 103/ul Normal 0.0-0.7 [facility] Comment on above: Performed By: #### C BC #### [facility] [address] [place] [address] Dr. Deidre Tijerina Eosinophils/100 WBC (Bld) 0.0 % Critically low 0.9-7.0 [facility] Comment on above: Performed By: #### C BC #### [facility] [address] [place] [address] Dr. Deidre Tijerina Erythrocyte distribution width (RBC) [Ratio] 13.6 % Normal 11.0-15.0 [facility] Comment on above: Performed By: #### C BC #### [facility] [address] [place] [address] Dr. Deidre Tijerina Hematocrit (Bld) [Volume fraction] 30.1 % Critically low 42.0-54.0 [facility] Comment on above: Performed By: #### C BC #### [facility] [address] [place] [address] Dr. Deidre Tijerina Hemoglobin (Bld) [Mass/Vol] 9.8 g/dL Critically low 14.0-18.0 [facility] Comment on above: Performed By: #### C BC #### [facility] [address] [place] [address] Dr. Deidre Tijerina IG # 0.13 10e3/ul Critically high 0.00-0.03 [facility] Comment on above: Performed By: #### C BC #### [facility] [address] [place] [address] Dr. Deidre Tijerina IG % 1.0 % Critically high 0.0-0.5 [facility] Comment on above: Performed By: #### C BC #### [facility] [address] [place] [address] Dr. Deidre Tijerina LYMPH # 1.2 103/ul Normal 1.2-3.8 [facility] Comment on above: Performed By: #### C BC #### [facility] [address] [address] [address] Deidre Tijerina Lymphocytes/100 WBC (Bld) 8.6 % Critically low 20.5-60.0 [facility] Comment on above: Performed By: #### C BC #### [facility] [address] [address] [address] Deidre Tijerina MANUAL DIFF REQ NO Normal [facility] Comment on above: Performed By: #### C BC #### [facility] [address] [place] [address] Dr. Deidre Tijerina MCH (RBC) [Entitic mass] 30.7 pg Normal 25.9-34.0 [facility] Comment on above: Performed By: #### C BC #### [facility] [address] [place] [address] Dr. Deidre Tijerina MCHC (RBC) [Mass/Vol] 32.6 g/dL Normal 29.9-35.2 [facility] Comment on above: Performed By: #### C BC #### [facility] [address] [place] [address] Dr. Deidre Tijerina MCV (RBC) [Entitic vol] 94.4 fL Critically high 80.0-94.0 [facility] Comment on above: Performed By: #### C BC #### [facility] [address] [place] [address] Dr. Deidre Tijerina MONO # 0.8 103/ul Normal 0.3-0.8 [facility] Comment on above: Performed By: #### C BC #### [facility] [address] [place] [address] Dr. Deidre Tijerina Monocytes/100 WBC (Bld) 6.2 % Normal 1.7-12.0 [facility] Comment on above: Performed By: #### C BC #### [facility] [address] [place] [address] Dr. Deidre Tijerina NEUT # 11.3 103/ul Critically high 1.4-6.5 [facility] Comment on above: Performed By: #### C BC #### [facility] [address] [address] [address] Deidre Tijerina Neutrophils/100 WBC (Bld) 84.1 % Critically high 43.0-75.0 [facility] Comment on above: Performed By: #### C BC #### [facility] [address] [address] [address] Deidre Tijerina Platelet mean volume (Bld) [Entitic vol] 9.3 fL Critically low 9.5-13.5 [facility] Comment on above: Performed By: #### C BC #### [facility] [address] [address] [address] Deidre Tijerina PLT 204 103/ul Normal 150-450 [facility] Comment on above: Performed By: #### C BC #### [facility] [address] [address] [address] Deidre Tijerina RBC 3.19 106/ul Critically low 4.70-6.10 [facility] Comment on above: Performed By: #### C BC #### [facility] [address] [address] [address] Deidre Tijerina WBC 13.5 103/ul Critically high 4.0-11.0 [facility] Comment on above: Performed By: #### C BC #### [facility] [address] [place] [address] Dr. Deidre Tijerina POINT OF CARE GLUCOSEon 07-25 Glucose [Mass/Vol] 164 mg/dL Critically high 74-106 [facility] Comment on above: Performed By: #### P OCGLUC #### [facility] [address] [place] [address] Dr. Deidre Tijerina PROF CHEM 8 (BAS METB)on Anion gap [Moles/Vol] 10.5 mmol/L Normal [facility] Comment on above: Performed By: #### P OCGLUC #### [facility] [address] [place] [address] Dr. Deidre Tijerina Calcium [Mass/Vol] 8.1 mg/dL Critically low 8.5-10.1 [facility] Comment on above: Performed By: #### P OCGLUC #### [facility] [address] [address] [address] Deidre Tijerina Chloride [Moles/Vol] 100 mmol/L Normal 98-107 [facility] Comment on above: Performed By: #### P OCGLUC #### [facility] [address] [address] [address] Deidre Tijerina CO2 [Moles/Vol] 24.4 mmol/L Normal 21.0-32.0 [facility] Comment on above: Performed By: #### P OCGLUC #### [facility] [address] [address] [address] Deidre Tijerina Creatinine [Mass/Vol] 1.17 mg/dL Normal 0.70-1.30 [facility] Comment on above: Performed By: #### P OCGLUC #### [facility] [address] [address] [address] Deidre Tijerina EGFR-AF MONEGASQUE >60 Normal >=60 [facility] Comment on above: Performed By: #### P OCGLUC #### [facility] [address] [address] [address] Deidre Tijerina EGFR-NON AF MONEGASQUE 60 mL/min/1.73m2 Normal >=60 [facility] Comment on above: Performed By: #### P OCGLUC #### [facility] [address] [address] [address] Deidre Tijerina Glucose [Mass/Vol] 145 mg/dL Critically high 74-106 [facility] Comment on above: Performed By: #### P OCGLUC #### [facility] [address] [address] [address] Deidre Tijerina Potassium [Moles/Vol] 3.9 mmol/L Normal 3.5-5.1 [facility] Comment on above: Performed By: #### P OCGLUC #### [facility] [address] [address] [address] Deidre Tijerina Sodium [Moles/Vol] 131 mmol/L Critically low 136-145 [facility] Comment on above: Performed By: #### P OCGLUC #### [facility] [address] [address] [address] Deidre Tijerina Urea nitrogen [Mass/Vol] 37.0 mg/dL Critically high 7.0-18.0 [facility] Comment on above: Performed By: #### P OCGLUC #### [facility] [address] [address] [address] Deidre Tijerina Urea nitrogen/Creatinine [Mass ratio] 31.6 mg/mg Normal [facility] Comment on above: Performed By: #### P OCGLUC #### [facility] [address] [address] [address] Deidre Tijerina XR CHEST 1 Von [...] deformities are again identified. Electronically authenticated by: ESTUARDOJAYNE ABEBE Date: 2022-08-20 13:26 Normal [facility] BNPon 08-19-2022 Natriuretic peptide B (Bld) [Mass/Vol] 955.0 pg/mL Normal <=1,800.0 [facility] Comment on above: Performed By: #### C BC #### [facility] [address] [address] [address] Deidre Tijerina CBC W MANUAL DIFFon 08-19-20 22 ATYPICAL LYMPH # 0.28 103/ul Normal [facility] Comment on above: Performed By: #### P OCGLUC #### [facility] [address] [address] [address] Deidre Tijerina ATYPICAL LYMPH % 2 % Normal [facility] Comment on above: Performed By: #### P OCGLUC #### [facility] [address] [address] [address] Deidre Tijerina BAND # 0.0 103/ul Normal 0.0-0.3 [facility] Comment on above: Performed By: #### P OCGLUC #### [facility] [address] [place] [address] Dr. Deidre Tijerina BAND % 0 % Normal 0-5 [facility] Comment on above: Performed By: #### P OCGLUC #### [facility] [address] [place] [address] Dr. Deidre Tijerina BASOM # 0.00 103/ul Normal 0.00-0.10 [facility] Comment on above: Performed By: #### P OCGLUC #### [facility] [address] [place] [address] Dr. Deidre Tijerina BASOM % 0.0 % Critically low 0.2-2.0 [facility] Comment on above: Performed By: #### P OCGLUC #### [facility] [address] [place] [address] Dr. Deidre Tijerina BLAST # Normal [facility] Comment on above: Performed By: #### P OCGLUC #### [facility] [address] [place] [address] Dr. Deidre Tijerina BLAST % Normal [facility] Comment on above: Performed By: #### P OCGLUC #### [facility] [address] [place] [address] Dr. Deidre Tijerina CORRECTED WBC Normal 4.0-11.0 [facility] Comment on above: Performed By: #### P OCGLUC #### [facility] [address] [place] [address] Dr. Deidre Tijerina EOS # 0.00 103/ul Normal 0.00-0.70 [facility] Comment on above: Performed By: #### P OCGLUC #### [facility] [address] [place] [address] Dr. Deidre Tijerina EOS% 0.0 % Critically low 0.9-7.0 [facility] Comment on above: Performed By: #### P OCGLUC #### [facility] [address] [place] [address] Dr. Deidre Tijerina HCT 30.4 % Critically low 42.0-54.0 [facility] Comment on above: Performed By: #### P OCGLUC #### [facility] [address] [address] [address] Deidre Tijerina HGB 9.8 g/dl Critically low 14.0-18.0 [facility] Comment on above: Performed By: #### P OCGLUC #### [facility] [address] [address] [address] Deidre Tijerina LYMPHM # 0.43 103/ul Critically low 1.20-3.80 [facility] Comment on above: Performed By: #### P OCGLUC #### [facility] [address] [place] [address] Dr. Deidre Tijerina LYMPHM% 3.0 % Critically low 20.5-60.0 [facility] Comment on above: Performed By: #### P OCGLUC #### [facility] [address] [place] [address] Dr. Deidre Tijerina MCH 30.8 pg Normal 25.9-34.0 [facility] Comment on above: Performed By: #### P OCGLUC #### [facility] [address] [place] [address] Dr. Deidre Tijerina MCHC 32.2 g/dl Normal 29.9-35.2 [facility] Comment on above: Performed By: #### P OCGLUC #### [facility] [address] [place] [address] Dr. Deidre Tijerina MCV 95.6 fL Critically high 80.0-94.0 [facility] Comment on above: Performed By: #### P OCGLUC #### [facility] [address] [address] [address] Deidre Tijerina METAMYELOCYTE # Normal [facility] Comment on above: Performed By: #### P OCGLUC #### [facility] [address] [place] [address] Dr. Deidre Tijerina METAMYELOCYTE % Normal [facility] Comment on above: Performed By: #### P OCGLUC #### [facility] [address] [address] [address] Deidre Tijerina MONOM# 0.57 103/ul Normal 0.30-0.80 [facility] Comment on above: Performed By: #### P OCGLUC #### [facility] [address] [address] [address] Deidre Tijerina MONOM% 4.0 % Normal 1.7-12.0 [facility] Comment on above: Performed By: #### P OCGLUC #### [facility] [address] [address] [address] Deidre Tijerina MPV 9.1 fL Critically low 9.5-13.5 [facility] Comment on above: Performed By: #### P OCGLUC #### [facility] [address] [place] [address] Dr. Deidre Tijerina MYELOCYTE # Normal [facility] Comment on above: Performed By: #### P OCGLUC #### [facility] [address] [address] [address] Deidre Tijerina MYELOCYTE % Normal [facility] Comment on above: Performed By: #### P OCGLUC #### [facility] [address] [address] [address] Deidre Tijerina NRBC Normal [facility] Comment on above: Performed By: #### P OCGLUC #### [facility] [address] [place] [address] Dr. Deidre Tijerina PLT 188 103/ul Normal 150-450 [facility] Comment on above: Performed By: #### P OCGLUC #### [facility] [address] [place] [address] Dr. Deidre Tijerina RBC 3.18 106/ul Critically low 4.70-6.10 [facility] Comment on above: Performed By: #### P OCGLUC #### [facility] [address] [place] [address] Dr. Deidre Tijerina RDW 14.0 % Normal 11.0-15.0 [facility] Comment on above: Performed By: #### P OCGLUC #### [facility] [address] [address] [address] Deidre Tijerina SEG # 12.92 103/ul Critically high 1.40-6.50 [facility] Comment on above: Performed By: #### P OCGLUC #### [facility] [address] [address] [address] Deidre Tijerina SEG % 91.0 % Critically high 43.0-75.0 [facility] Comment on above: Performed By: #### P OCGLUC #### [facility] [address] [address] [address] Deidre Tijerina WBC 14.2 103/ul Critically high 4.0-11.0 [facility] Comment on above: Performed By: #### P OCGLUC #### [facility] [address] [address] [address] Deidre Tijerina POINT OF CARE GLUCOSEon 07-25 Glucose [Mass/Vol] 305 mg/dL Critically high [address] [facility] Comment on above: Performed By: #### P OCGLUC #### [facility] [address] [address] [address] Deidre Tijerina Glucose [Mass/Vol] 181 mg/dL Critically high [address] [place] [address] Comment on above: Performed By: #### C BC #### [facility] [address] [address] [address] Deidre Tijerina Glucose [Mass/Vol] 342 mg/dL Critically high [facility]106 [facility] Comment on above: Performed By: #### P OCGLUC #### [facility] [address] [address] [address] Deidre Tijerina Glucose [Mass/Vol] 192 mg/dL Critically high [facility]106 [facility] Comment on above: Performed By: #### P OCGLUC #### [facility] [address] [address] [address] Deidre Tijerina PROF CHEM 8 (BAS METB)on Anion gap [Moles/Vol] 10.3 mmol/L Normal [facility] Comment on above: Performed By: #### B MP, BNP #### [facility] [address] [place] [address] Dr. Deidre Tijerina Calcium [Mass/Vol] 7.9 mg/dL Critically low 8.5-10.[address] [facility] Comment on above: Performed By: #### B MP, BNP #### [facility] [address] [address] [address] Deidre Tijerina Chloride [Moles/Vol] 100 mmol/L Normal 98-107 [facility] Comment on above: Performed By: #### B MP, BNP #### [facility] [address] [place] [address] Dr. Deidre Tijerina CO2 [Moles/Vol] 26.6 mmol/L Normal 21.0-32.0 [facility] Comment on above: Performed By: #### B MP, BNP #### [facility] [address] [place] [address] Dr. Deidre Tijerina Creatinine [Mass/Vol] 1.29 mg/dL Normal 0.70-1.30 [facility] Comment on above: Performed By: #### B MP, BNP #### [facility] [address] [place] [address] Dr. Deidre Tijerina EGFR-AF MONEGASQUE >60 Normal >=60 [facility] Comment on above: Performed By: #### B MP, BNP #### [facility] [address] [place] [address] Dr. Deidre Tijerina EGFR-NON AF MONEGASQUE 54 mL/min/1.73m2 Critically low >=60 [facility] Comment on above: Performed By: #### B MP, BNP #### [facility] [address] [place] [address] Dr. Deidre Tijerina Glucose [Mass/Vol] 190 mg/dL Critically high 74-106 T [facility] Comment on above: Performed By: #### B MP, BNP #### [facility] [address] [place] [address] Dr. Deidre Tijerina Potassium [Moles/Vol] 3.9 mmol/L Normal 3.5-5.1 [facility] Comment on above: Performed By: #### B MP, BNP #### [facility] [address] [address] [address] Deidre Tijerina Sodium [Moles/Vol] 133 mmol/L Critically low 136-145 [facility] Comment on above: Performed By: #### B MP, BNP #### [facility] [address] [address] [address] Deidre Tijerina Urea nitrogen [Mass/Vol] 35.0 mg/dL Critically high 7.0-18.0 [facility] Comment on above: Performed By: #### B MP, BNP #### [facility] [address] [address] [address] Deidre Tijerina Urea nitrogen/Creatinine [Mass ratio] 27.1 mg/mg Normal [facility] Comment on above: Performed By: #### B MP, BNP #### [facility] [address] [place] [address] Dr. Deidre Tijerina BILIRUBIN CONJUGATED (DIRECT )on 08-18-2022 BILI, CONJUGATED 0.4 mg/dL Critically high 0.0-0.2 [facility] Comment on above: Performed By: #### P OCGLUC #### [facility] [address] [address] [address] Deidre Tijerina BLOOD GASES BTYon 08-18-2022 02 MODE BIPAP Normal [facility] Comment on above: Performed By: #### P OCGLUC #### [facility] [address] [address] [address] Deidre Tijerina ALLENS TEST Positive Normal [facility] Comment on above: Performed By: #### P OCGLUC #### [facility] [address] [address] [address] Deidre Tijerina Base excess Calc (Bld) [Moles/Vol] 1.0 mmol/L Normal -2.0-2.0 [facility] Comment on above: Performed By: #### P OCGLUC #### [facility] [address] [place] [address] Dr. Deidre Tijerina BIPAP PRESSURE 16/8 Normal [facility] Comment on above: Performed By: #### P OCGLUC #### [facility] [address] [address] [address] Deidre Tijerina CPAP [facility] Comment on above: Performed By: #### P OCGLUC #### [facility] [address] [address] [address] Deidre Tijerina FIO2 35.00 % Normal [facility] Comment on above: Performed By: #### P OCGLUC #### [facility] [address] [address] [address] Deidre Tijerina HCO3 (Bld) [Moles/Vol] 25.0 mmol/L Normal 22.0-26.0 [facility] Comment on above: Performed By: #### P OCGLUC #### [facility] [address] [place] [address] Dr. Deidre Tijerina LPM [facility] Comment on above: Performed By: #### P OCGLUC #### [facility] [address] [address] [address] Deidre Tijerina MINUTE VOLUME [address] [facility] Comment on above: Performed By: #### P OCGLUC #### [facility] [address] [address] [address] Deidre Tijerina Oxygen (Bld) [Partial pressure] 83.4 mm[Hg] Normal 80.0-100.0 [facility] Comment on above: Performed By: #### P OCGLUC #### [facility] [address] [place] [address] Dr. Deidre Tijerina Oxygen saturation in Blood 97.5 % Normal 95.0-100.0 [facility] Comment on above: Performed By: #### P OCGLUC #### [facility] [address] [place] [address] Dr. Deidre Tijerina PCO2 36.2 mmHg Normal 35.0-45.0 [facility] Comment on above: Performed By: #### P OCGLUC #### [facility] [address] [address] [address] Deidre Tijerina PEEP 8 [facility] Comment on above: Performed By: #### P OCGLUC #### [facility] [address] [place] [address] Dr. Deidre Tijerina pH (Bld) 7.440 [pH] Normal 7.350-7.450 [facility] Comment on above: Performed By: #### P OCGLUC #### [facility] [address] [place] [address] Dr. Deidre Tijerina PIP 17 [facility] Comment on above: Performed By: #### P OCGLUC #### [facility] [address] [address] [address] Deidre Tijerina PS 8 [facility] Comment on above: Performed By: #### P OCGLUC #### [facility] [address] [place] [address] Dr. Deidre Tijerina PUNCTURE SITE RR [facility] Comment on above: Performed By: #### P OCGLUC #### [facility] [address] [place] [address] Dr. Deidre Tijerina RATE 14 bpm [facility] Comment on above: Performed By: #### P OCGLUC #### [facility] [address] [place] [address] Dr. Deidre Tijerina VENT MODE [facility] Comment on above: Performed By: #### P OCGLUC #### [facility] [address] [place] [address] Dr. Deidre Tijerina VT 945 ML [facility] Comment on above: Performed By: #### P OCGLUC #### [facility] [address] [place] [address] Dr. Deidre Tijerina BNPon 08-18-2022 Natriuretic peptide B (Bld) [Mass/Vol] 2561.0 pg/mL Critically high <=1,800.0 [facility] Comment on above: Performed By: #### P OCGLUC #### [facility] [address] [place] [address] Dr. Deidre Tijerina CBC W MANUAL DIFFon 08-18-20 ANISOCYTOSIS 1+ [facility] Comment on above: Performed By: #### C BCMAN #### [facility] [address] [place] [address] Dr. Deidre Tijerina ATYPICAL LYMPH # Normal [facility] Comment on above: Performed By: #### C BCMAN #### [facility] [address] [place] [address] Dr. Deidre Tijerina ATYPICAL LYMPH % Normal [facility] Comment on above: Performed By: #### C BCMAN #### [facility] [address] [address] [address] Deidre Tijerina BAND # 1.2 103/ul Critically high 0.0-0.3 [facility] Comment on above: Performed By: #### C BCMAN #### [facility] [address] [place] [address] Dr. Deidre Tijerina BAND % 7 % Critically high 0-5 [facility] Comment on above: Performed By: #### C BCNICOLASA #### [facility] [address] [place] [address] Dr. Deidre Tijerina BASOM # 0.00 103/ul Normal 0.00-0.10 [facility] Comment on above: Performed By: #### C BCNICOLASA #### [facility] [address] [place] [address] Dr. Deidre Tijerina BASOM % 0.0 % Critically low 0.2-2.0 [facility] Comment on above: Performed By: #### C BCNICOLASA #### [facility] [address] [place] [address] Dr. Deidre Tijerina BLAST # Normal [facility] Comment on above: Performed By: #### C BCNICOLASA #### [facility] [address] [place] [address] Dr. Deidre Tijerina BLAST % Normal [facility] Comment on above: Performed By: #### C BCNICOLASA #### [facility] [address] [place] [address] Dr. Deidre Tijerina CORRECTED WBC Normal 4.0-11.0 [facility] Comment on above: Performed By: #### C BCMAN #### [facility] [address] [place] [address] Dr. Deidre Tijerina EOS # 0.17 103/ul Normal 0.00-0.70 [facility] Comment on above: Performed By: #### C BCNICOLASA #### [facility] [address] [address] [address] Deidre Tijerina EOS% 1.0 % Normal 0.9-7.0 [facility] Comment on above: Performed By: #### C ADALGISA #### [facility] [address] [address] [address] Deidre Tijerina HCT 34.8 % Critically low 42.0-54.0 [facility] Comment on above: Performed By: #### C ADALGISA #### [facility] [address] [address] [address] Deidre Tijerina HGB 11.5 g/dl Critically low 14.0-18.0 [facility] Comment on above: Performed By: #### C ADALGISA #### [facility] [address] [address] [address] Deidre Tijerina LYMPHM # 1.20 103/ul Normal 1.20-3.80 [facility] Comment on above: Performed By: #### C ADALGISA #### [facility] [address] [address] [address] Deidre Tijerina LYMPHM% 7.0 % Critically low 20.5-60.0 [facility] Comment on above: Performed By: #### C ADALGISA #### [facility] [address] [address] [address] Deidre Tijerina MCH 31.5 pg Normal 25.9-34.0 [facility] Comment on above: Performed By: #### C BCNICOLASA #### [facility] [address] [address] [address] Deidre Tijerina MCHC 33.0 g/dl Normal 29.9-35.2 [facility] Comment on above: Performed By: #### C ADALGISA #### [facility] [address] [address] [address] Deidre Tijerina MCV 95.3 fL Critically high 80.0-94.0 [facility] Comment on above: Performed By: #### C ADALGISA #### [facility] [address] [address] [address] Deidre Tijerina METAMYELOCYTE # Normal [facility] Comment on above: Performed By: #### C ADALGISA #### [facility] [address] [place] [address] Dr. Deidre Tijerina METAMYELOCYTE % Normal [facility] Comment on above: Performed By: #### C ADALGISA #### [facility] [address] [place] [address] Dr. Deidre Tijerina MONOM# 1.03 103/ul Critically high 0.30-0.80 [facility] Comment on above: Performed By: #### C ADALGISA #### [facility] [address] [place] [address] Dr. Deidre Tijerina MONOM% 6.0 % Normal 1.7-12.0 [facility] Comment on above: Performed By: #### C ADALGISA #### [facility] [address] [place] [address] Dr. Deidre Tijerina MPV 8.7 fL Critically low 9.5-13.5 [facility] Comment on above: Performed By: #### Gely DIANA #### [facility] [address] [place] [address] Dr. Deidre Tijerina MYELOCYTE # Normal [facility] Comment on above: Performed By: #### C ADALGISA #### [facility] [address] [place] [address] Dr. Deidre Tijerina MYELOCYTE % Normal [facility] Comment on above: Performed By: #### C ADALGISA #### [facility] [address] [place] [address] Dr. Deidre Tijerina NRBC Normal [facility] Comment on above: Performed By: #### C ADALGISA #### [facility] [address] [place] [address] Dr. Deidre Tijerina PLT 212 103/ul Normal 150-450 [facility] Comment on above: Performed By: #### C ADALGISA #### [facility] [address] [place] [address] Dr. Deidre Tijerina RBC 3.65 106/ul Critically low 4.70-6.10 [facility] Comment on above: Performed By: #### C ADALGISA #### [facility] [address] [place], [place] [address] Dr. Deidre Tijerina RDW 14.0 % Normal 11.0-15.0 [facility] Comment on above: Performed By: #### C ADALGISA #### [facility] [address] [place], [place] [address] Dr. Deidre Tijerina SEG # 13.59 103/ul Critically high 1.40-6.50 [facility] Comment on above: Performed By: #### C ADALGISA #### [facility] [address] [place], [place] [address] Dr. Deidre Tijerina SEG % 79.0 % Critically high 43.0-75.0 [facility] Comment on above: Performed By: #### C ADALGISA #### [facility] [address] [place], [place] [address] Dr. Deidre Tijerina WBC 17.2 103/ul Critically high 4.0-11.0 [facility] Comment on above: Performed By: #### C ADALGISA #### [facility] [address] [place] [address] CHEST WO CONon [...] NOREEN KELLY Date: 2022-08-18 12:12 Normal [facility] CULTURE BLOODon 08-18-2022 Microscopic examination of blood, culture Culture Observations: NO GROWTH AT 5 DAYS. Normal [facility] Comment on above: Performed By: #### C BC #### [facility] [address] [address] [address] Deidre Tijerina Microscopic examination of blood, culture Culture Observations: NO GROWTH AT 5 DAYS. Normal [facility] Comment on above: Performed By: #### C BC #### [facility] [address] [place] [address] Dr. Deidre Tijerina Covid-19 PCR ([facility])on 07-25 SARS-CoV-2 (COVID-19) RNA ISA+probe Ql (Unsp spec) Not detected Normal NOT DETECTED [facility] Comment on above: Result Comment: When diagnostic [...] for this test is supported by the [place] of Health and Human Service's declaration that [...] used). Performed By: #### P OCGLUC #### [facility] [address] [place] [address] Dr. Deidre Tijerina ECHO LIMITED STUDYon 022 ECHO LIMITED STUDY Patient: UMM MCQUEEN Exam Date: 08/18/2022 : 1945 Gender:M Ordering : SHAIKH Zay CARRERA . Admission #: [id number] Family : Order #: [id number] CLICK HERE TO VIEW EXAM ECHOCARDIOGRAM REPORT [...] M.D. on 08/26/2022 at 09:00 Normal [facility] INFLUENZA A AND B AGon 08-18 INFLUANEGH SEE BELOW Normal [facility] Comment on above: Result Comment: Nega tive for Flu A protein angiten. Infection due to Flu A cannot be ruled out. Flu A angiten in the sample may be below the detection limit of the test. Performed By: #### P OCGLUC #### [facility] [address] [place] [address] Dr. Deidre Tijerina [facility] SEE BELOW Normal [facility] Comment on above: Result Comment: Nega tive for Flu B protein antigen. Infection due to Flu B cannot be ruled out. Flu B antigen in the sample may be below the detection limit of the test. Performed By: #### P OCGLUC #### [facility] [address] [place] [address] Dr. Deidre Tijerina INFLUENZA A AG Negative Normal NEGATIVE SEE COMMENT [facility] Comment on above: Performed By: #### P OCGLUC #### [facility] [address] [place] [address] Dr. Deidre Tijerina INFLUENZA B AG Negative Normal NEGATIVE SEE COMMENT [facility] Comment on above: Performed By: #### P OCGLUC #### [facility] [address] [place] [address] Dr. Deidre Tijerina INTERNAL CONTROLS Within Normal Limits Normal Wi thin Normal Limits [facility] Comment on above: Performed By: #### P OCGLUC #### [facility] [address] [place] [address] Dr. Deidre Tijerina LACTATE/LACTIC ACIDon 2021 Lactate [Moles/Vol] 2.0 mmol/L Critically high 0.4-1.9 [facility] Comment on above: Performed By: #### P OCGLUC #### [facility] [address] [place] [address] Dr. Deidre Tijerina Lactate [Moles/Vol] 2.0 mmol/L Critically high 0.4-1.9 [facility] Comment on above: Performed By: #### P OCGLUC #### [facility] [address] [address] [address] Deidre Tijerina POINT OF CARE GLUCOSEon 07-25 Glucose [Mass/Vol] 228 mg/dL Critically high 74-106 [facility] Comment on above: Performed By: #### P OCGLUC #### [facility] [address] [address] [address] Deidre Tijerina Glucose [Mass/Vol] 119 mg/dL Critically high 74-106 [facility] Comment on above: Performed By: #### P OCGLUC #### [facility] [address] [address] [address] Deidre Tijerina Glucose [Mass/Vol] 161 mg/dL Critically high -106 [facility] Comment on above: Performed By: #### C BC #### [facility] [address] [place] [address] Dr. Deidre Tijerina PROF 14(COMP METB)on 022 Albumin [Mass/Vol] 2.9 g/dL Critically low 3.4-5.0 [facility] System Comment on above: Performed By: #### P OCGLUC #### [facility] [address] [address] [address] Deidre Tijerina Albumin/Globulin [Mass ratio] 0.6 {ratio} [facility] Comment on above: Performed By: #### P OCGLUC #### [facility] [address] [address] [address] Deidre Tijerina ALP [Catalytic activity/Vol] 71 U/L Normal 46-116 [facility] Comment on above: Performed By: #### P OCGLUC #### [facility] [address] [address] [address] Deidre Tijerina ALT [Catalytic activity/Vol] 13 U/L Critically low 16-63 [facility] Comment on above: Performed By: #### P OCGLUC #### [facility] [address] [address] [address] Deidre Tijerina Anion gap [Moles/Vol] 12.3 mmol/L Normal [facility] Comment on above: Performed By: #### P OCGLUC #### [facility] [address] [address] [address] Deidre Tijerina AST [Catalytic activity/Vol] 14 U/L Critically low 15-37 [facility] Comment on above: Performed By: #### P OCGLUC #### [facility] [address] [address] [address] Deidre Tijerina Bilirubin [Mass/Vol] 2.6 mg/dL Critically high 0.2-1.0 [facility] Comment on above: Performed By: #### P OCGLUC #### [facility] [address] [address] [address] Deidre Tijerina Calcium [Mass/Vol] 8.5 mg/dL Normal 8.5-10.1 [facility] Comment on above: Performed By: #### P OCGLUC #### [facility] [address] [address] [address] Deidre Tijerina Chloride [Moles/Vol] 98 mmol/L Normal 98-107 [facility] Comment on above: Performed By: #### P OCGLUC #### [facility] [address] [address] [address] Deidre Tijerina CO2 [Moles/Vol] 26.0 mmol/L Normal 21.0-32.0 [facility] Comment on above: Performed By: #### P OCGLUC #### [facility] [address] [address] [address] Deidre Tijerina Creatinine [Mass/Vol] 1.43 mg/dL Critically high 0.70-1.30 [facility] Comment on above: Performed By: #### P OCGLUC #### [facility] [address] [address] [address] Deidre Tijerina EGFR-AF MONEGASQUE 58 mL/min/1.73m2 Critically low >=60 [facility] Comment on above: Performed By: #### P OCGLUC #### [facility] [address] [address] [address] Deidre Tijerina EGFR-NON AF MONEGASQUE 48 mL/min/1.73m2 Critically low >=60 [facility] Comment on above: Performed By: #### P OCGLUC #### [facility] [address] [address] [address] Deidre Tijerina Globulin (S) [Mass/Vol] 5.0 g/dL Normal [facility] Comment on above: Performed By: #### P OCGLUC #### [facility] [address] [address] [address] Deidre Tijerina Glucose [Mass/Vol] 165 mg/dL Critically high 74-106 T [facility] Comment on above: Performed By: #### P OCGLUC #### [facility] [address] [address] [address] Deidre Tijerina Potassium [Moles/Vol] 4.3 mmol/L Normal 3.5-5.1 [facility] Comment on above: Performed By: #### P OCGLUC #### [facility] [address] [address] [address] Deidre Tijerina Protein [Mass/Vol] 7.9 g/dL Normal 6.4-8.2 [facility] Comment on above: Performed By: #### P OCGLUC #### [facility] [address] [address] [address] Deidre Tijerina Sodium [Moles/Vol] 132 mmol/L Critically low 136-145 [facility] Comment on above: Performed By: #### P OCGLUC #### [facility] [address] [address] [address] Deidre Tijerina Urea nitrogen [Mass/Vol] 25.0 mg/dL Critically high 7.0-18.0 [facility] Comment on above: Performed By: #### P OCGLUC #### [facility] [address] [address] [address] Deidre Tijerina Urea nitrogen/Creatinine [Mass ratio] 17.5 mg/mg Normal [facility] Comment on above: Performed By: #### P OCGLUC #### [facility] [address] [address] [address] Deidre Tijerina TROPONIN, HIGH SENSITIVITYon 08-18-2022 HSTROP 8.4 pg/mL Normal 4.0-76.1 [facility] Comment on above: Result Comment: CUT- OFF POINTS HAVE BEEN ESTABLISHED BASED ON THE FOURTH UNIVERSAL DEFINITIONS OF MYOCARDIAL INFARCTION. THE UPPER REFERENCE LIMIT (URL) OF TROPONIN, DEFINED THE 99TH PERCENTILE OF cTnI DISTRIBUTION IN A REFERENCE POPULATION, HAS BEEN CONFIRMED THE DECISION THRESHOLD FOR [place] DIAGNOSIS. Performed By: #### P OCGLUC #### [facility] [address] [address] [address] Deidre Tijerina XR CHEST 1 Von [...] left costophrenic angle is excluded from the [id number]. 3. No overt edema, failure, pneumothorax, or sizable effusion noted within limits of study. 4. Old healed nondisplaced anterior right fifth rib fracture deformity faintly suggested. Electronically authenticated by: ESTUARDO ABEBE Date: 2022-08-18 09:37 Normal [facility] STRESS/REST MULTIon 08-04 NM STRESS/REST MULTI Patient: ARIANNE MCQUEENFrancine Exam Date: 08/04/2022 : 1945 Gender:M Ordering : DR CATINA SALAZAR M.D. Admission #: [id number] Family : Order #: [id number] CLICK HERE TO VIEW EXAM RADIOLOGY REPORT [...] Banks MD on 08/07/2022 at 08:29 Normal [facility] BNPon 07-14-2022 Natriuretic peptide B (Bld) [Mass/Vol] 164.0 pg/mL Normal <=1,800.0 [facility] Comment on above: Performed By: #### B CONTINUITY TESTER, BMP #### [facility] [address] [place] [address] Dr. Deidre Tijerina PROF CHEM 8 (BAS METB)on Anion gap [Moles/Vol] 9.2 mmol/L Normal [facility] Comment on above: Performed By: #### B CONTINUITY TESTER, BMP #### [facility] [address] [place] [address] Dr. Deidre Tijerina Calcium [Mass/Vol] 8.4 mg/dL Critically low 8.5-10.[address] [facility] Comment on above: Performed By: #### B CONTINUITY TESTER, BMP #### [facility] [address] [place] [address] Dr. Deidre Tijerina Chloride [Moles/Vol] 106 mmol/L Normal 98-107 [facility] Comment on above: Performed By: #### B CONTINUITY TESTER, BMP #### [facility] [address] [place] [address] Dr. Deidre Tijerina CO2 [Moles/Vol] 27.0 mmol/L Normal 21.0-32.0 [facility] Comment on above: Performed By: #### B CONTINUITY TESTER, BMP #### [facility] [address] [address] [address] Deidre Tijerina Creatinine [Mass/Vol] 1.38 mg/dL Critically high 0.70-1.30 [facility] Comment on above: Performed By: #### B CONTINUITY TESTER, BMP #### [facility] [address] [address] [address] Deidre Tijerina EGFR-AF MONEGASQUE =60 Normal >=60 [facility] Comment on above: Performed By: #### B CONTINUITY TESTER, BMP #### [facility] [address] [place] [address] Dr. Deidre Tijerina EGFR-NON AF MONEGASQUE 50 mL/min/1.73m2 Critically low >=60 [facility] Comment on above: Performed By: #### B CONTINUITY TESTER, BMP #### [facility] [address] [address] [address] Deidre Tijerina Glucose [Mass/Vol] 95 mg/dL Normal 74-106 [facility] Comment on above: Performed By: #### B CONTINUITY TESTER, BMP #### [facility] [address] [place] [address] Dr. Deidre Tijerina Potassium [Moles/Vol] 5.2 mmol/L Critically high 3.5-5.1 [facility] Comment on above: Performed By: #### B CONTINUITY TESTER, BMP #### [facility] [address] [address] [address] Deidre Tijerina Sodium [Moles/Vol] 137 mmol/L Normal 136-145 [facility] Comment on above: Performed By: #### B CONTINUITY TESTER, BMP #### [facility] [address] [place] [address] Dr. Deidre Tijerina Urea nitrogen [Mass/Vol] 25.0 mg/dL Critically high 7.0-18.0 [facility] Comment on above: Performed By: #### B CONTINUITY TESTER, BMP #### [facility] [address] [place] [address] Dr. Deidre Tijerina Urea nitrogen/Creatinine [Mass ratio] 18.1 mg/mg Normal [facility] Comment on above: Performed By: #### B CONTINUITY TESTER, CLEMENCIA #### [facility] [address] [place], [place] [address] Dr. Deidre Tijerina ECHOCARDIO M/2D COMPLETEon 0 05-08-2022 ECHOCARDIO M/2D COMPLETE Patient: ARIANNE MCQUEEN Exam Date: 05/08/2022 : 1945 Gender:M Ordering : DR CATINA SALAZAR M.D. Admission #: [id number] Family : DR MAL BARNES D.O. Order #: [id number] CLICK HERE TO VIEW EXAM ECHOCARDIOGRAM REPORT [...] Salazar M.D. on 05/09/2022 at 19:48 Normal [facility] XR LSPINE MIN 4 VIEWSon 04-24 [...] NOREEN KELLY Date: 2022-05-08 10:47 Normal [facility] PROF CHEM 8 (BAS METB)on Anion gap [Moles/Vol] 6.8 mmol/L Normal [facility] Comment on above: Performed By: #### P OCGLUC #### [facility] [address] [address] [address] Deidre Tijerina Calcium [Mass/Vol] 8.8 mg/dL Normal 8.5-10.1 [facility] Comment on above: Performed By: #### P OCGLUC #### [facility] [address] [address] [address] Deidre Tijerina Chloride [Moles/Vol] 102 mmol/L Normal 98-107 [facility] Comment on above: Performed By: #### P OCGLUC #### [facility] [address] [address] [address] Deidre Tijerina CO2 [Moles/Vol] 28.1 mmol/L Normal 21.0-32.0 [facility] Comment on above: Performed By: #### P OCGLUC #### [facility] [address] [address] [address] Deidre Tijerina Creatinine [Mass/Vol] 1.84 mg/dL Critically high 0.70-1.30 [facility] Comment on above: Performed By: #### P OCGLUC #### [facility] [address] [address] [address] Deidre Tijerina EGFR-AF MONEGASQUE 43 mL/min/1.73m2 Critically low >=60 [facility] Comment on above: Performed By: #### P OCGLUC #### [facility] [address] [address] [address] Deidre Tijerina EGFR-NON AF MONEGASQUE 36 mL/min/1.73m2 Critically low >=60 [facility] Comment on above: Performed By: #### P OCGLUC #### [facility] [address] [address] [address] Deidre Tijerina Glucose [Mass/Vol] 112 mg/dL Critically high 74-106 T [facility] Comment on above: Performed By: #### P OCGLUC #### [facility] [address] [address] [address] Deidre Tijerina Potassium [Moles/Vol] 4.9 mmol/L Normal 3.5-5.1 [facility] Comment on above: Performed By: #### P OCGLUC #### [facility] [address] [address] [address] Deidre Tijerina Sodium [Moles/Vol] 132 mmol/L Critically low 136-[address] [facility] Comment on above: Performed By: #### P OCGLUC #### [facility] [address] [address] [address] Deidre Tijerina Urea nitrogen [Mass/Vol] 40.0 mg/dL Critically high 7.0-18.0 [facility] Comment on above: Performed By: #### P OCGLUC #### [facility] [address] [address] [address] Deidre Tijerina Urea nitrogen/Creatinine [Mass ratio] 21.7 mg/mg Normal [facility] Comment on above: Performed By: #### P OCGLUC #### [facility] [address] [address] [address] Deidre Tijerina PROF CHEM 8 (BAS METB)on Anion gap [Moles/Vol] 8.9 mmol/L Normal [facility] Comment on above: Performed By: #### B MP #### [facility] [address] [address] [address] Deidre Tijerina Calcium [Mass/Vol] 8.4 mg/dL Critically low 8.5-10.1 Th [facility] Comment on above: Performed By: #### B MP #### [facility] [address] [address] [address] Deidre Tijerina Chloride [Moles/Vol] 102 mmol/L Normal 98-107 [facility] Comment on above: Performed By: #### B MP #### [facility] [address] [address] [address] Deidre Tijerina CO2 [Moles/Vol] 25.9 mmol/L Normal 21.0-32.0 [facility] Comment on above: Performed By: #### B MP #### [facility] [address] [address] [address] Deidre Tijerina Creatinine [Mass/Vol] 1.20 mg/dL Normal 0.70-1.30 [facility] Comment on above: Performed By: #### B MP #### [facility] [address] [address] [address] Deidre Tijerina EGFR-AF MONEGASQUE >60 Normal >=60 [facility] Comment on above: Performed By: #### B MP #### [facility] [address] [address] [address] Deidre Tijerina EGFR-NON AF MONEGASQUE 59 mL/min/1.73m2 Critically low >=60 [facility] Comment on above: Performed By: #### B MP #### [facility] [address] [address] [address] Deidre Tijerina Glucose [Mass/Vol] 117 mg/dL Critically high 74-106 [facility] Comment on above: Performed By: #### B MP #### [facility] [address] [address] [address] Deidre Tijerina Potassium [Moles/Vol] 4.8 mmol/L Normal 3.5-5.1 [facility] Comment on above: Performed By: #### B MP #### [facility] [address] [place], [place] [address] Dr. Deidre Tijerina Sodium [Moles/Vol] 132 mmol/L Critically low 136-[address] [facility] Comment on above: Performed By: #### B MP #### [facility] [address] [place], [place] [address] Dr. Deidre Tijerina Urea nitrogen [Mass/Vol] 25.0 mg/dL Critically high 7.0-18.0 [facility] Comment on above: Performed By: #### B MP #### [facility] [address] [address] [address] Deidre Tijerina Urea nitrogen/Creatinine [Mass ratio] 20.8 mg/mg Normal [facility] Comment on above: Performed By: #### B MP #### [facility] [address] [address] [address] Deidre Tijerina US CHESTon 08-05-2021 US CHEST Normal [facility] Comment on above: Order Comment: serom a in the chest needs a drain placed BASIC METABOLIC PANELon 10-1 Calcium [Mass/Vol] 8.4 mg/dL Low 8.6-10.[address] [facility] Comment on above: Order Comment: this is not a nurse draw. lab draw pleaseNo: Do not add to previous draw Performed By: #### 0 0071 ####[facility] [place] [address], [facility] Chloride [Moles/Vol] 102 mmol/L Normal 98-107 [facility] Comment on above: Order Comment: this is not a nurse draw. lab draw pleaseNo: Do not add to previous draw Performed By: #### 0 0071 ####[facility] [place] [address], [facility] CO2 [Moles/Vol] 25 mmol/L Normal 21-31 [facility] Comment on above: Order Comment: this is not a nurse draw. lab draw pleaseNo: Do not add to previous draw Performed By: #### 0 0071 ####[facility] [facility].[place] [id number], [facility] Creatinine [Mass/Vol] 2.56 mg/dL High 0.70-1.30 [facility] Comment on above: Order Comment: this is not a nurse draw. lab draw pleaseNo: Do not add to previous draw Performed By: #### 0 0071 ####[facility] [facility] [place] [address], [facility] eGFR- 30 ml/min/1.73sq m Abnormal >60 [facility] Comment on above: Order Comment: this is not a nurse draw. lab draw pleaseNo: Do not add to previous draw Result Comment: Calc ulation may not be valid for patients over 70 years Performed By: #### 0 0071 ####[address] [facility] [place] [address], [facility] eGFR- non- 24 ml/min/1.73sq m Abnormal >60 [facility] Comment on above: Order Comment: this is not a nurse draw. lab draw pleaseNo: Do not add to previous draw Result Comment: Calc ulation may not be valid for patients over 70 years Performed By: #### 0 0071 ####[address] [facility] [place] [address], [facility] Glucose [Mass/Vol] 182 mg/dL High 70-[address] [facility] Comment on above: Order Comment: this is not a nurse draw. lab draw pleaseNo: Do not add to previous draw Performed By: #### 0 0071 ####[facility] [facility] [place] [address], [facility] Potassium [Moles/Vol] 4.5 mmol/L Normal 3.5-5.1 [facility] Comment on above: Order Comment: this is not a nurse draw. lab draw pleaseNo: Do not add to previous draw Performed By: #### 0 0071 ####[facility] [facility] [place] [address], [facility] Sodium [Moles/Vol] 133 mmol/L Low 136-145 [facility] Comment on above: Order Comment: this is not a nurse draw. lab draw pleaseNo: Do not add to previous draw Performed By: #### 0 0071 ####[facility] [place] [address].[place] [address], [facility] Urea nitrogen [Mass/Vol] 28 mg/dL High 7-25 [facility] Comment on above: Order Comment: this is not a nurse draw. lab draw pleaseNo: Do not add to previous draw Performed By: #### 0 0071 ####[address] POC GLUCOSE LABon 06-02-2021 Glucose [Mass/Vol] 246 mg/dL High 70-100 [facility] Comment on above: Performed By: #### 8 [id number] ####[facility] [facility] [place] [address], [facility] Glucose [Mass/Vol] 109 mg/dL High 70-100 [facility] Comment on above: Performed By: #### 8 [id number] ####[address] POC SARS COV2 ANTIGEN NEGATI VEon 06-02-2021 POC SARS COV2 ANTIGEN NEG Negative Normal NEGATIVE [facility] Comment on above: Result Comment: Nega [...] of clinicalsigns and symptoms consistent with COVID-19.The [employer] COVID-19 Ag Card is a lateral flow immunoassay intended forthe qualitative detection of nucleocapsid protein antigen [id number] in direct nasal swabs from individuals within [...] Certificate ofAccreditation. Performed By: #### 3 1976 ####[facility] [facility].[address] POC SARS COV2 ANTIGEN NEG Negative Normal NEGATIVE [facility] Comment on above: Result Comment: Nega [...] of clinicalsigns and symptoms consistent with COVID-19.The [employer] COVID-19 Ag Card is a lateral flow immunoassay intended forthe qualitative detection of nucleocapsid protein antigen daygRAZF-[id number]-4 in direct nasal swabs from individuals within [...] Certificate ofAccreditation. Performed By: #### 3 1976 ####[facility] [facility] [place] [address], [facility] POC GLUCOSE LABon 06-01-2021 Glucose [Mass/Vol] 142 mg/dL High 70-100 [facility] Comment on above: Performed By: #### 8 [id number] ####[facility] [facility] [place] [address], [facility] Glucose [Mass/Vol] 132 mg/dL High 70-100 [facility] Comment on above: Performed By: #### 8 [id number] ####[facility] [facility] [place] [address], [facility] Glucose [Mass/Vol] 167 mg/dL High 70-100 [facility] Comment on above: Performed By: #### 8 [id number] ####[address] [facility] [place] [address], [facility] Glucose [Mass/Vol] 113 mg/dL High 70-100 [facility] Comment on above: Performed By: #### 8 [id number] ####[address] [facility].[address] APTTon 05-31-2021 aPTT Coag (Bld) [Time] 29.3 s Normal 25.0-35.0 [facility] Comment on above: Result Comment: ALL [...] THIS PURPOSE. Performed By: #### 5 [id number], [id number] ####[facility] [facility].[address] CBC W/DIFFon 05-31-2021 ABS IMM GRANS 0.1 10*3/uL Normal 0.0-0.2 [facility] Comment on above: Order Comment: No: D o not add to previous draw Performed By: #### 5 0103 ####[address] [place] [address], [facility] ABS NEUTROPHILS 4.9 10*3/uL Normal 1.6-7.6 [facility] Comment on above: Order Comment: No: D o not add to previous draw Performed By: #### 5 0103 ####[facility] [place] [address], [facility] Basophils (Bld) [#/Vol] 0.1 10*3/uL Normal 0.0-0.2 [facility] Comment on above: Order Comment: No: D o not add to previous draw Performed By: #### 5 0103 ####[place] [address], [facility] Basophils/100 WBC (Bld) 0.6 % Normal 0.0-1.0 [facility] Comment on above: Order Comment: No: D o not add to previous draw Performed By: #### 5 0103 ####[facility] [place] [address], [facility] Eosinophils (Bld) [#/Vol] 0.4 10*3/uL Normal 0.0-0.5 [facility] Comment on above: Order Comment: No: D o not add to previous draw Performed By: #### 5 0103 ####[facility] [place] [address], [facility] Eosinophils/100 WBC (Bld) 5.3 % Normal 0.0-6.0 [facility] Comment on above: Order Comment: No: D o not add to previous draw Performed By: #### 5 0103 ####[place] [address], [facility] Erythrocyte distribution width (RBC) [Ratio] 15.7 % High 11.5-15.0 [facility] Comment on above: Order Comment: No: D o not add to previous draw Performed By: #### 5 0103 ####[address] [place] [address], [place] Hematocrit (Bld) [Volume fraction] 27.6 % Low 39.0-50.0 [facility] Comment on above: Order Comment: No: D o not add to previous draw Performed By: #### 5 0103 ####[facility] [place] [address], [facility] Hemoglobin (Bld) [Mass/Vol] 8.5 g/dL Low 13.0-17.0 [facility] Comment on above: Order Comment: No: D o not add to previous draw Performed By: #### 5 0103 ####[address] IMMATURE GRANS 1.1 % High 0.0-1.0 The [facility] Comment on above: Order Comment: No: D o not add to previous draw Performed By: #### 5 0103 ####[facility] Lymphocytes (Bld) [#/Vol] 1.7 10*3/uL Normal 1.2-4.0 [facility] Comment on above: Order Comment: No: D o not add to previous draw Performed By: #### 5 3 ####[address] Lymphocytes/100 WBC (Bld) 21.4 % Normal 20.0-45.0 [facility] Comment on above: Order Comment: No: D o not add to previous draw Performed By: #### 5 0103 ####[facility] [place] [address], [facility] MCH (RBC) [Entitic mass] 29.2 pg Normal 27.0-33.0 [facility] Comment on above: Order Comment: No: D o not add to previous draw Performed By: #### 5 0103 ####[facility] [facility].[address] MCHC (RBC) [Mass/Vol] 30.8 g/dL Low 32.0-35.0 [facility] Comment on above: Order Comment: No: D o not add to previous draw Performed By: #### 5 0103 ####[facility] [facility] [place] [address], [facility] MCV (RBC) [Entitic vol] 94.8 fL Normal 82.0-98.0 [facility] Comment on above: Order Comment: No: D o not add to previous draw Performed By: #### 5 0103 ####[address] Monocytes (Bld) [#/Vol] 0.8 10*3/uL Normal 0.1-1.0 [facility] Comment on above: Order Comment: No: D o not add to previous draw Performed By: #### 5 0103 ####[facility] [facility].[address] MONOS 9.7 % Normal 5.0-12.0 [facility] Comment on above: Order Comment: No: D o not add to previous draw Performed By: #### 5 0103 ####[facility] [facility].[address] Neutrophils/100 WBC (Bld) 61.9 % Normal 40.0-72.0 [facility] Comment on above: Order Comment: No: D o not add to previous draw Performed By: #### 5 0103 ####[facility] [facility] [facility] [place] [address], [facility] Nucleated RBC/100 WBC (Bld) [Ratio] 0 % Normal 0-0 [facility] Comment on above: Order Comment: No: D o not add to previous draw Performed By: #### 5 0103 ####[facility] PLAT CNT 351 10*3/uL Normal 150-400 The [facility] Comment on above: Order Comment: No: D o not add to previous draw Performed By: #### 5 0103 ####[facility] [facility].[address] RBC (Bld) [#/Vol] 2.91 10*6/uL Low 4.20-5.70 The [facility] Comment on above: Order Comment: No: D o not add to previous draw Performed By: #### 5 0103 ####[place] [id number] [facility].[address] WBC (Bld) [#/Vol] 7.96 10*3/uL Normal 4.00-10.60 The [facility] Comment on above: Order Comment: No: D o not add to previous draw Performed By: #### 5 0103 ####[facility] COMP METABOLIC PANELon 05-31 Albumin [Mass/Vol] 2.9 g/dL Low 3.5-5.[address] [facility] Comment on above: Order Comment: No: D o not add to previous drawNurse draw Performed By: #### 1 0, 90177 ####[facility] [facility].[address] ALKALINE PHOSPH 70 IU/L Normal 34-104 The [facility] Comment on above: Order Comment: No: D o not add to previous drawNurse draw Performed By: #### 1 0070, 83600 ####[facility] [facility].[address] ALT [Catalytic activity/Vol] 9 U/L Normal 7-52 [facility] Comment on above: Order Comment: No: D o not add to previous drawNurse draw Performed By: #### 1 0070, 98635 ####[facility] [place] [address], [place] AST [Catalytic activity/Vol] 11 U/L Low 13-39 [facility] Comment on above: Order Comment: No: D o not add to previous drawNurse draw Performed By: #### 1 0, 97601 ####[facility] [place] [address], [place] Bilirubin [Mass/Vol] 0.6 mg/dL Normal 0.3-1.0 [facility] Comment on above: Order Comment: No: D o not add to previous drawNurse draw Performed By: #### 1 0, 63901 ####[facility] [place] [address], [place] Calcium [Mass/Vol] 8.4 mg/dL Low 8.6-10.[address] [facility] Comment on above: Order Comment: No: D o not add to previous drawNurse draw Performed By: #### 1 0, 88725 ####[facility] [place] [address], [place] Chloride [Moles/Vol] 102 mmol/L Normal 98-107 [facility] Comment on above: Order Comment: No: D o not add to previous drawNurse draw Performed By: #### 1 0, 35522 ####[facility] [place] [address], [place] CO2 [Moles/Vol] 27 mmol/L Normal 21-31 [facility] Comment on above: Order Comment: No: D o not add to previous drawNurse draw Performed By: #### 1 0, 81537 ####[facility] [place] [address], [place] Creatinine [Mass/Vol] 2.90 mg/dL High 0.70-1.30 [facility] Comment on above: Order Comment: No: D o not add to previous drawNurse draw Performed By: #### 1 0, 56290 ####[facility] [place] [address], [facility] eGFR- 26 ml/min/1.73sq m Abnormal >60 The [facility] Comment on above: Order Comment: No: D o not add to previous drawNurse draw Result Comment: Calc ulation may not be valid for patients over 70 years Performed By: #### 1 0, 21082 ####[facility] [place] [address], [facility] eGFR- non- 21 ml/min/1.73sq m Abnormal >60 [facility] Comment on above: Order Comment: No: D o not add to previous drawNurse draw Result Comment: Calc ulation may not be valid for patients over 70 years Performed By: #### 1 0, 24096 ####[facility] [place] [address], [facility] Glucose [Mass/Vol] 97 mg/dL Normal 70-100 [facility] Comment on above: Order Comment: No: D o not add to previous drawNurse draw Performed By: #### 1 0, 90570 ####[facility] [place] [address], [facility] Potassium [Moles/Vol] 4.4 mmol/L Normal 3.5-5.1 [facility] Comment on above: Order Comment: No: D o not add to previous drawNurse draw Performed By: #### 1 0, 51617 ####[facility] [place] [address], [place] Protein [Mass/Vol] 6.5 g/dL Normal 6.0-8.3 [facility] Comment on above: Order Comment: No: D o not add to previous drawNurse draw Performed By: #### 1 0, 41225 ####[facility] [place] [address], [place] Sodium [Moles/Vol] 134 mmol/L Low 136-145 [facility] Comment on above: Order Comment: No: D o not add to previous drawNurse draw Performed By: #### 1 0, 50861 ####[facility] [place] [address], [place] Urea nitrogen [Mass/Vol] 31 mg/dL High 7-25 [facility] Comment on above: Order Comment: No: D o not add to previous drawNurse draw Performed By: #### 1 0, 67808 ####[facility] [facility] [place] [address], [place] MAGNESIUM BLOODon 05-31-2021 Magnesium [Mass/Vol] 1.8 mg/dL Low 1.9-2.7 [facility] Comment on above: Performed By: #### 1 69, 26075 ####[facility] [facility] [place] [address], [place] POC GLUCOSE LABon 05-31-2021 Glucose [Mass/Vol] 120 mg/dL High 70-100 [facility] Comment on above: Performed By: #### 8 5499 ####[facility] [facility] [place] [address], [place] Glucose [Mass/Vol] 124 mg/dL High 70-100 [facility] Comment on above: Performed By: #### 8 5499 ####[facility] [facility] [place] [address], [place] Glucose [Mass/Vol] 136 mg/dL High 70-100 [facility] Comment on above: Performed By: #### 8 5499 ####[facility] [place] [address], [place] Glucose [Mass/Vol] 115 mg/dL High 70-100 [facility] Comment on above: Performed By: #### 8 5499 ####[facility] [facility] [place] [address], [facility] PORTABLE CHEST 1 VIEWon PORTABLE CHEST 1 VIEW Normal [facility] Comment on above: Order Comment: evalu ate for CHF PROTHROMBIN TIMEon INR Coag (PPP) [Relative time] 1.13 {INR} Normal 0.91-1.16 [facility] Comment on above: Result Comment: ACCC P RECOMMENDED INR FOR WARFARIN THERAPY CONDITION INRPROPHYLAXIS OF VENOUS THROMBOSIS 2-3(HIGH-RISK SURGERY)TREATMENT OF VENOUS THROMBOSIS 2-3TREATMENT OF PULMONARY EMBOLISM 2-3PREVENTION OF SYSTEMIC EMBOLISM: 2-3 ACUTE MYOCARDIAL INFARCTION TISSUE HEART VALVES VALVULAR HEART DISEASE ATRIAL FIBRILLATION RECURRENT SYSTEMIC EMBOLISMMECHANICAL HEART VALVE 2.5-3.5 FROM: ORAL ANTICOAGULANTS. MECHANISM OF ACTION, CLINICALEFFECTIVENESS, AND OPTIMAL THERAPEUTIC RANGE. [id number]. Performed By: #### 5 7307, 40883 ####[facility] [facility] [place] [address], [facility] PT Coag (PPP) [Time] 14.5 s Normal 12.3-14.8 [facility] Comment on above: Result Comment: ALL RESULTS MUST BE INTERPRETED WITH RESPECT TO BLOOD DRAWING ARTIFACTOR DILUTION ERROR OF ANTICOAGULANT AT THE TIME OF SAMPLING. Performed By: #### 5 7307, 18856 ####[facility] [place] [address], [facility] ALBUMIN BLOODon 05-30-2021 Albumin [Mass/Vol] 3.0 g/dL Low 3.5-5.7 The [facility] Comment on above: Performed By: #### 1 0, , 20131 ####[facility] [place] [address], [facility] BASIC METABOLIC PANELon Calcium [Mass/Vol] 8.6 mg/dL Normal 8.6-10.3 The [facility] Comment on above: Order Comment: No: D o not add to previous draw Performed By: #### 1 0, , 37641 ####[facility] [place] [address], [facility] Chloride [Moles/Vol] 102 mmol/L Normal 98-107 [facility] Comment on above: Order Comment: No: D o not add to previous draw Performed By: #### 1 69, , 87036 ####[facility] [place] [address], [facility] CO2 [Moles/Vol] 25 mmol/L Normal 21-31 The [facility] Comment on above: Order Comment: No: D o not add to previous draw Performed By: #### 1 69, , ####[facility] [place] [address], [facility] Creatinine [Mass/Vol] 2.49 mg/dL High 0.70-1.30 [facility] Comment on above: Order Comment: No: D o not add to previous draw Performed By: #### 1 69, , 80874 ####[facility] [place] [address], [facility] eGFR- 31 ml/min/1.73sq m Abnormal >60 [facility] Comment on above: Order Comment: No: D o not add to previous draw Result Comment: Calc ulation may not be valid for patients over 70 years Performed By: #### 1 69, , 33440 ####[facility] [place] [address], [facility] eGFR- non- 25 ml/min/1.73sq m Abnormal >60 [facility] Comment on above: Order Comment: No: D o not add to previous draw Result Comment: Calc ulation may not be valid for patients over 70 years Performed By: #### 1 69, , ####[facility] [place] [address], [place] Glucose [Mass/Vol] 100 mg/dL Normal 70-100 The [facility] Comment on above: Order Comment: No: D o not add to previous draw Performed By: #### 1 69, , ####[facility] [place] [address], [place] Potassium [Moles/Vol] 4.5 mmol/L Normal 3.5-5.1 [facility] Comment on above: Order Comment: No: D o not add to previous draw Performed By: #### 1 69, , ####[facility] [place] [address], [place] Sodium [Moles/Vol] 134 mmol/L Low 136-145 [facility] Comment on above: Order Comment: No: D o not add to previous draw Performed By: #### 1 69, , ####[facility] [place] [address], [place] Urea nitrogen [Mass/Vol] 32 mg/dL High 7-25 [facility] Comment on above: Order Comment: No: D o not add to previous draw Performed By: #### 1 69, , ####[facility] [place] [address], [place] CBC COMPLETE BLOOD COUNTon 1 0-07-2021 Erythrocyte distribution width (RBC) [Ratio] 15.7 % High 11.5-15.0 [facility] Comment on above: Order Comment: No: D o not add to previous draw Performed By: #### 5 0608 ####[facility] Hematocrit (Bld) [Volume fraction] 26.5 % Low 39.0-50.0 [facility] Comment on above: Order Comment: No: D o not add to previous draw Performed By: #### 5 0608 ####[address] Hemoglobin (Bld) [Mass/Vol] 8.4 g/dL Low 13.0-17.0 [facility] Comment on above: Order Comment: No: D o not add to previous draw Performed By: #### 5 0608 ####[address] MCH (RBC) [Entitic mass] 28.9 pg Normal 27.0-33.0 [facility] Comment on above: Order Comment: No: D o not add to previous draw Performed By: #### 5 0608 ####[address] MCHC (RBC) [Mass/Vol] 31.7 g/dL Low 32.0-35.0 [facility] Comment on above: Order Comment: No: D o not add to previous draw Performed By: #### 5 0608 ####[address] MCV (RBC) [Entitic vol] 91.1 fL Normal 82.0-98.0 [facility] Comment on above: Order Comment: No: D o not add to previous draw Performed By: #### 5 0608 ####[address] Nucleated RBC/100 WBC (Bld) [Ratio] 0 % Normal 0-0 [facility] Comment on above: Order Comment: No: D o not add to previous draw Performed By: #### 5 0608 ####[facility] [facility] [place] [address], [facility] PLAT CNT 338 10*3/uL Normal 150-400 [facility] Comment on above: Order Comment: No: D o not add to previous draw Performed By: #### 5 0608 ####[place] [address], [facility] RBC (Bld) [#/Vol] 2.91 10*6/uL Low 4.20-5.70 The [facility] Comment on above: Order Comment: No: D o not add to previous draw Performed By: #### 5 0608 ####[facility] [place] [address], [facility] WBC (Bld) [#/Vol] 7.23 10*3/uL Normal 4.00-10.60 [facility] Comment on above: Order Comment: No: D o not add to previous draw Performed By: #### 5 0608 ####[address] CREATININE URINE RANDOMon Creatinine (U) [Mass/Vol] 39.0 mg/dL Normal [facility] Comment on above: Order Comment: No: D o not add to previous draw Result Comment: Ther e are no established reference values for random urine specimens Performed By: #### 2 5706, 13300 ####[place] [address], [facility] MAGNESIUM BLOODon 05-30-2021 Magnesium [Mass/Vol] 1.9 mg/dL Normal 1.9-2.7 [facility] Comment on above: Order Comment: No: D o not add to previous draw Performed By: #### 1 0070, 35876, 78281 ####[facility] [facility] [place] [address], [facility] POC GLUCOSE LABon 05-30-2021 Glucose [Mass/Vol] 155 mg/dL High 70-100 The [facility] Comment on above: Performed By: #### 8 5499 ####[facility] [facility] [place] [address], [facility] Glucose [Mass/Vol] 129 mg/dL High 70-100 The [facility] Comment on above: Performed By: #### 8 5499 ####[facility] [facility] [place] [address], [place] Glucose [Mass/Vol] 147 mg/dL High 70-100 [facility] Comment on above: Performed By: #### 8 5499 ####[facility] [facility] [place] [address], [facility] PORTABLE CHEST 1 VIEWon 10-0 PORTABLE CHEST 1 VIEW Normal [facility] Comment on above: Order Comment: Evalu ate for Atelectasis T PROT UR Isi 05-30-2021 U TOTAL PROTEIN 88.8 mg/dL Normal The [facility] Comment on above: Order Comment: No: D o not add to previous draw Result Comment: Ther e are no established reference values for random urine specimens Performed By: #### 2 5706, 30552 ####[facility] [facility] [place] [address], [facility] URINE TRINH STAIN/EOSon EOSINOPHIL SMEAR NONE SEEN Normal NSN The [facility] Comment on above: Order Comment: No: D o not add to previous draw [place] Normal [facility] Comment on above: Order Comment: No: D o not add to previous draw Result Comment: Test Performed by [facility] [address] [place] [address] - Released 05/30/2021 20:40 US RENALon 05-30-2021 US RENAL Normal [facility] Comment on above: Order Comment: Other , FREDA BASIC METABOLIC PANELon 10-0 Calcium [Mass/Vol] 8.4 mg/dL Low 8.6-10.[address] [facility] Comment on above: Order Comment: No: D o not add to previous draw Performed By: #### 4 1000, 17429, 46522 ####[facility] [place] [address], [facility] Chloride [Moles/Vol] 102 mmol/L Normal 98-107 [facility] Comment on above: Order Comment: No: D o not add to previous draw Performed By: #### 4 1000, 69895, 81709 ####[facility] [place] [address], [facility] CO2 [Moles/Vol] 25 mmol/L Normal 21-31 The [facility] Comment on above: Order Comment: No: D o not add to previous draw Performed By: #### 4 1000, 79383, 95749 ####[facility] [place] [address], [facility] Creatinine [Mass/Vol] 2.12 mg/dL High 0.70-1.30 [facility] Comment on above: Order Comment: No: D o not add to previous draw Performed By: #### 4 1000, 40493, 08699 ####[facility] [place] [address], [facility] eGFR- 37 ml/min/1.73sq m Abnormal >60 [facility] Comment on above: Order Comment: No: D o not add to previous draw Result Comment: Calc ulation may not be valid for patients over 70 years Performed By: #### 4 1000, 32824, 24894 ####[facility] eGFR- non- 30 ml/min/1.73sq m Abnormal >60 [facility] Comment on above: Order Comment: No: D o not add to previous draw Result Comment: Calc ulation may not be valid for patients over 70 years Performed By: #### 4 1000, 66921, 07676 ####[facility] [place] [address], [facility] Glucose [Mass/Vol] 103 mg/dL High 70-100 [facility] Comment on above: Order Comment: No: D o not add to previous draw Performed By: #### 4 1000, 37535, 35075 ####[facility] [facility] [place] [address], [facility] Potassium [Moles/Vol] 4.6 mmol/L Normal 3.5-5.1 [facility] Comment on above: Order Comment: No: D o not add to previous draw Performed By: #### 4 1000, 86635, 22007 ####[facility] Sodium [Moles/Vol] 133 mmol/L Low 136-145 [facility] Comment on above: Order Comment: No: D o not add to previous draw Performed By: #### 4 1000, 87747, 40826 ####[facility]3000 [facility].[address] Urea nitrogen [Mass/Vol] 33 mg/dL High 7-25 [facility] Comment on above: Order Comment: No: D o not add to previous draw Performed By: #### 4 1000, 13224, 30934 ####[facility] [facility].[address] CBC COMPLETE BLOOD COUNTon Erythrocyte distribution width (RBC) [Ratio] 15.7 % High 11.5-15.0 [facility] Comment on above: Order Comment: No: D o not add to previous draw Performed By: #### 5 0608 ####[facility] Hematocrit (Bld) [Volume fraction] 26.4 % Low 39.0-50.0 [facility] Comment on above: Order Comment: No: D o not add to previous draw Performed By: #### 5 0608 ####[facility] Hemoglobin (Bld) [Mass/Vol] 8.4 g/dL Low 13.0-17.0 [facility] Comment on above: Order Comment: No: D o not add to previous draw Performed By: #### 5 0608 ####[address] MCH (RBC) [Entitic mass] 29.0 pg Normal 27.0-33.0 [facility] Comment on above: Order Comment: No: D o not add to previous draw Performed By: #### 5 0608 ####[address] MCHC (RBC) [Mass/Vol] 31.8 g/dL Low 32.0-35.0 [facility] Comment on above: Order Comment: No: D o not add to previous draw Performed By: #### 5 0608 ####[facility] [place] [address] MCV (RBC) [Entitic vol] 91.0 fL Normal 82.0-98.0 [facility] Comment on above: Order Comment: No: D o not add to previous draw Performed By: #### 5 0608 ####[address] Nucleated RBC/100 WBC (Bld) [Ratio] 0 % Normal 0-0 [facility] Comment on above: Order Comment: No: D o not add to previous draw Performed By: #### 5 0608 ####[facility] [place] [address], [facility] PLAT CNT 346 10*3/uL Normal 150-400 [facility] Comment on above: Order Comment: No: D o not add to previous draw Performed By: #### 5 0608 ####[facility] [place] [address], [facility] RBC (Bld) [#/Vol] 2.90 10*6/uL Low 4.20-5.70 The [facility] Comment on above: Order Comment: No: D o not add to previous draw Performed By: #### 5 0608 ####[facility] [place] [address], [facility] WBC (Bld) [#/Vol] 7.17 10*3/uL Normal 4.00-10.60 [facility] Comment on above: Order Comment: No: D o not add to previous draw Performed By: #### 5 0608 ####[facility] [facility].[address] MAGNESIUM BLOODon 05-29-2021 Magnesium [Mass/Vol] 1.9 mg/dL Normal 1.9-2.7 [facility] Comment on above: Order Comment: No: D o not add to previous draw Performed By: #### 4 999, 45393, 57206 ####[facility] [place] [address], [facility] PHOSPHORUS BLOODon Phosphate [Mass/Vol] 4.4 mg/dL Normal 2.5-5.0 [facility] Comment on above: Order Comment: No: D o not add to previous draw Performed By: #### 4 1000, 70324, 54729 ####[facility] [place] [address], [facility] POC GLUCOSE LABon 05-29-2021 Glucose [Mass/Vol] 183 mg/dL High 70-100 The [facility] Comment on above: Performed By: #### 8 5499 ####[facility] [place] [address], [place] Glucose [Mass/Vol] 124 mg/dL High 70-100 [facility] Comment on above: Performed By: #### 8 5499 ####[facility] [place] [address], [place] Glucose [Mass/Vol] 187 mg/dL High 70-100 [facility] Comment on above: Performed By: #### 8 5499 ####[facility] [place] [address], [place] Glucose [Mass/Vol] 189 mg/dL High 70-100 [facility] Comment on above: Performed By: #### 8 5499 ####[facility] [place] [address], [place] PORTABLE CHEST 1 VIEWon PORTABLE CHEST 1 VIEW Normal [facility] Comment on above: Order Comment: evalu ate for Atelectasis BASIC METABOLIC PANELon Calcium [Mass/Vol] 8.3 mg/dL Low 8.6-10.3 [facility] Comment on above: Order Comment: No: D o not add to previous draw Performed By: #### 2 5508, 93255, 19978, 27828 ####[facility] [place] [address], [place] Chloride [Moles/Vol] 99 mmol/L Normal 98-107 [facility] Comment on above: Order Comment: No: D o not add to previous draw Performed By: #### 2 5508, 37732, 65012, 65947 ####[facility] [place] [address], [place] CO2 [Moles/Vol] 26 mmol/L Normal 21-31 The [facility] Comment on above: Order Comment: No: D o not add to previous draw Performed By: #### 2 5508, 53264, 88864, 77496 ####[facility] [place] [address], [facility] Creatinine [Mass/Vol] 2.18 mg/dL High 0.70-1.30 [facility] Comment on above: Order Comment: No: D o not add to previous draw Performed By: #### 2 5508, 66718, 72869, 40391 ####[facility] [place] [address], [facility] eGFR- 36 ml/min/1.73sq m Abnormal >60 [facility] Comment on above: Order Comment: No: D o not add to previous draw Result Comment: Calc ulation may not be valid for patients over 70 years Performed By: #### 2 5508, 35429, 03467, 35004 ####[facility] [place] [address], [facility] eGFR- non- 29 ml/min/1.73sq m Abnormal >60 [facility] Comment on above: Order Comment: No: D o not add to previous draw Result Comment: Calc ulation may not be valid for patients over 70 years Performed By: #### 2 5508, 99703, 42494, [id number] ####[facility] [place] [address], [place] Glucose [Mass/Vol] 100 mg/dL Normal 70-[address] [facility] Comment on above: Order Comment: No: D o not add to previous draw Performed By: #### 2 5508, 34549, 52597, 16293 ####[facility] [place] [address], [place] Potassium [Moles/Vol] 5.3 mmol/L High 3.5-5.1 [facility] Comment on above: Order Comment: No: D o not add to previous draw Performed By: #### 2 5508, 45393, 24167, 02176 ####[facility] [facility].[address] Sodium [Moles/Vol] 131 mmol/L Low 136-145 [facility] Comment on above: Order Comment: No: D o not add to previous draw Performed By: #### 2 5508, 85681, 08706, 34588 ####[facility] [facility].[address] Urea nitrogen [Mass/Vol] 33 mg/dL High 7-25 [facility] Comment on above: Order Comment: No: D o not add to previous draw Performed By: #### 2 5508, 92196, 94906, 15707 ####[facility] [facility].[address] CBC W/DIFFon 05-28-2021 ABS IMM GRANS 0.2 10*3/uL Normal 0.0-0.2 The [facility] Comment on above: Performed By: #### 5 0103 ####[facility] [facility].[address] ABS NEUTROPHILS 5.6 10*3/uL Normal 1.6-7.6 The [facility] Comment on above: Performed By: #### 5 0103 ####[facility] [facility] [place] [address], [facility] Basophils (Bld) [#/Vol] 0.0 10*3/uL Normal 0.0-0.2 [facility] Comment on above: Performed By: #### 5 3 ####[facility] [place] [address], [facility] Basophils/100 WBC (Bld) 0.5 % Normal 0.0-1.0 [facility] Comment on above: Performed By: #### 5 0103 ####[facility] [facility].[address] Eosinophils (Bld) [#/Vol] 0.4 10*3/uL Normal 0.0-0.5 [facility] Comment on above: Performed By: #### 5 0103 ####[facility] [facility].[address] Eosinophils/100 WBC (Bld) 4.5 % Normal 0.0-6.0 [facility] Comment on above: Performed By: #### 5 3 ####[place] [address] [facility].[address] Erythrocyte distribution width (RBC) [Ratio] 15.6 % High 11.5-15.0 [facility] Comment on above: Performed By: #### 5 3 ####[facility] [facility].[address] Hematocrit (Bld) [Volume fraction] 27.7 % Low 39.0-50.0 [facility] Comment on above: Performed By: #### 5 3 ####[place] [address] [facility].[address] Hemoglobin (Bld) [Mass/Vol] 8.6 g/dL Low 13.0-17.0 [facility] Comment on above: Performed By: #### 5 3 ####[facility] [facility].[address] IMMATURE GRANS 1.8 % High 0.0-1.0 [facility] Comment on above: Performed By: #### 5 3 ####[address] Lymphocytes (Bld) [#/Vol] 1.8 10*3/uL Normal 1.2-4.0 [facility] Comment on above: Performed By: #### 5 0103 ####[facility] [facility].[address] Lymphocytes/100 WBC (Bld) 20.4 % Normal 20.0-45.0 [facility] Comment on above: Performed By: #### 5 0103 ####[facility] [facility].[address] MCH (RBC) [Entitic mass] 28.6 pg Normal 27.0-33.0 [facility] Comment on above: Performed By: #### 5 0103 ####[facility] [facility].[address] MCHC (RBC) [Mass/Vol] 31.0 g/dL Low 32.0-35.0 [facility] Comment on above: Performed By: #### 5 0103 ####[facility] MCV (RBC) [Entitic vol] 92.0 fL Normal 82.0-98.0 [facility] Comment on above: Performed By: #### 5 0103 ####[facility] Monocytes (Bld) [#/Vol] 0.9 10*3/uL Normal 0.1-1.0 [facility] Comment on above: Performed By: #### 5 0103 ####[facility] MONOS 9.9 % Normal 5.0-12.0 [facility] Comment on above: Performed By: #### 5 3 ####[facility] [place] [address], [facility] Neutrophils/100 WBC (Bld) 62.9 % Normal 40.0-72.0 The [facility] Comment on above: Performed By: #### 5 0103 ####[facility] [facility].[address] Nucleated RBC/100 WBC (Bld) [Ratio] 0 % Normal 0-0 [facility] Comment on above: Performed By: #### 5 0103 ####[facility] [facility] [place] [address], [facility] PLAT CNT 387 10*3/uL Normal 150-400 [facility] Comment on above: Performed By: #### 5 0103 ####[facility] RBC (Bld) [#/Vol] 3.01 10*6/uL Low 4.20-5.70 The [facility] Comment on above: Performed By: #### 5 0103 ####[facility] [place] [address], [facility] WBC (Bld) [#/Vol] 8.82 10*3/uL Normal 4.00-10.60 [facility] Comment on above: Performed By: #### 5 0103 ####[facility] CPKon 05-28-2021 CK [Catalytic activity/Vol] 19 U/L Low 30-223 [facility] Comment on above: Performed By: #### 2 5508, 97814, 08977, 62473 ####[facility] [facility].[address] MAGNESIUM BLOODon 05-28-2021 Magnesium [Mass/Vol] 1.9 mg/dL Normal 1.9-2.7 [facility] Comment on above: Order Comment: No: D o not add to previous draw Performed By: #### 2 5508, 46594, 37287, 52724 ####[facility] [place] [address], [place] Operative Reporton 1 Operative Report Normal [facility] PHOSPHORUS BLOODon 1 Phosphate [Mass/Vol] 4.5 mg/dL Normal 2.5-5.0 [facility] Comment on above: Performed By: #### 2 5508, 60603, 25297, 96812 ####[facility] [place] [address], [place] POC GLUCOSE LABon 05-28-2021 Glucose [Mass/Vol] 120 mg/dL High 70-100 [facility] Comment on above: Performed By: #### 8 5499 ####[facility] [place] [address], [place] Glucose [Mass/Vol] 130 mg/dL High 70-100 [facility] Comment on above: Performed By: #### 8 5499 ####[facility] [place] [address], [place] Glucose [Mass/Vol] 117 mg/dL High 70-100 [facility] Comment on above: Performed By: #### 8 5499 ####[facility] [place] [address], [place] Glucose [Mass/Vol] 175 mg/dL High 70-100 [facility] Comment on above: Performed By: #### 8 5499 ####[facility] [place] [address], [place] Glucose [Mass/Vol] 107 mg/dL High 70-100 [facility] Comment on above: Performed By: #### 8 5499 ####[facility] [place] [address], [place] BASIC METABOLIC PANELon Calcium [Mass/Vol] 8.4 mg/dL Low 8.6-10.[address] [facility] Comment on above: Order Comment: No: D o not add to previous draw Performed By: #### 0 0071, 40620, 92381 ####[facility] [place] [address], [facility] Chloride [Moles/Vol] 99 mmol/L Normal 98-107 [facility] Comment on above: Order Comment: No: D o not add to previous draw Performed By: #### 0 0071, , 20750 ####[facility] [place] [address], [facility] CO2 [Moles/Vol] 29 mmol/L Normal 21-31 The [facility] Comment on above: Order Comment: No: D o not add to previous draw Performed By: #### 0 0071, , 59005 ####[facility] [facility] [place] [address], [facility] Creatinine [Mass/Vol] 1.78 mg/dL High 0.70-1.30 [facility] Comment on above: Order Comment: No: D o not add to previous draw Performed By: #### 0 0071, , 15734 ####[facility] [facility].[address] eGFR- 45 ml/min/1.73sq m Abnormal >60 [facility] Comment on above: Order Comment: No: D o not add to previous draw Result Comment: Calc ulation may not be valid for patients over 70 years Performed By: #### 0 0071, , 67407 ####[facility] [facility].[address] eGFR- non- 37 ml/min/1.73sq m Abnormal >60 [facility] Comment on above: Order Comment: No: D o not add to previous draw Result Comment: Calc ulation may not be valid for patients over 70 years Performed By: #### 0 0071, 29221, 45498 ####[facility] [place] [address], [facility] Glucose [Mass/Vol] 96 mg/dL Normal 70-100 [facility] Comment on above: Order Comment: No: D o not add to previous draw Performed By: #### 0 0071, 63395, 80484 ####[facility] [place] [address], [facility] Potassium [Moles/Vol] 4.7 mmol/L Normal 3.5-5.1 [facility] Comment on above: Order Comment: No: D o not add to previous draw Performed By: #### 0 0071, , 14699 ####[facility] [place] [address], [facility] Sodium [Moles/Vol] 133 mmol/L Low 136-145 [facility] Comment on above: Order Comment: No: D o not add to previous draw Performed By: #### 0 0071, , 28965 ####[facility] [facility] [place] [address], [facility] Urea nitrogen [Mass/Vol] 33 mg/dL High 7-25 [facility] Comment on above: Order Comment: No: D o not add to previous draw Performed By: #### 0 0071, , 85273 ####[facility] [place] [address], [place] C REACTIVE PROTEINon 021 CRP [Mass/Vol] 47.2 mg/L High 0.0-7.0 The [facility] Comment on above: Order Comment: Yes: Add to Previous draw if able Performed By: #### 6 1405 ####[facility] [place] [address], [place] CBC COMPLETE BLOOD COUNTon 1 0-04-2021 Erythrocyte distribution width (RBC) [Ratio] 15.5 % High 11.5-15.0 [facility] Comment on above: Order Comment: No: D o not add to previous drawNurse draw Performed By: #### 5 6506, 15422 ####[facility] Hematocrit (Bld) [Volume fraction] 24.7 % Low 39.0-50.0 [facility] Comment on above: Order Comment: No: D o not add to previous drawNurse draw Performed By: #### 5 6506, 30534 ####[facility] Hemoglobin (Bld) [Mass/Vol] 7.7 g/dL Low 13.0-17.0 [facility] Comment on above: Order Comment: No: D o not add to previous drawNurse draw Performed By: #### 5 2326, 23506 ####[facility] MCH (RBC) [Entitic mass] 28.5 pg Normal 27.0-33.0 [facility] Comment on above: Order Comment: No: D o not add to previous drawNurse draw Performed By: #### 5 463, 10306 ####[facility] MCHC (RBC) [Mass/Vol] 31.2 g/dL Low 32.0-35.0 [facility] Comment on above: Order Comment: No: D o not add to previous drawNurse draw Performed By: #### 5 6856, 24153 ####[facility] [facility] [place] [address], [facility] MCV (RBC) [Entitic vol] 91.5 fL Normal 82.0-98.0 [facility] Comment on above: Order Comment: No: D o not add to previous drawNurse draw Performed By: #### 5 2026, 65759 ####[facility] [facility] [place] [address], [facility] Nucleated RBC/100 WBC (Bld) [Ratio] 0 % Normal 0-0 [facility] Comment on above: Order Comment: No: D o not add to previous drawNurse draw Performed By: #### 5 6506, 69010 ####[facility] [facility] [place] [address], [facility] PLAT CNT 332 10*3/uL Normal 150-400 [facility] Comment on above: Order Comment: No: D o not add to previous drawNurse draw Performed By: #### 5 6506, 24712 ####[place] [address] [place] [address], [facility] RBC (Bld) [#/Vol] 2.70 10*6/uL Low 4.20-5.70 [facility] Comment on above: Order Comment: No: D o not add to previous drawNurse draw Performed By: #### 5 6506, 82243 ####[facility] [facility] [place] [address], [facility] WBC (Bld) [#/Vol] 7.87 10*3/uL Normal 4.00-10.60 [facility] Comment on above: Order Comment: No: D o not add to previous drawNurse draw Performed By: #### 5 6506, 01130 ####[facility] [facility] [place] [address], [facility] MAGNESIUM BLOODon 05-27-2021 Magnesium [Mass/Vol] 2.1 mg/dL Normal 1.9-2.7 [facility] Comment on above: Order Comment: No: D o not add to previous draw Performed By: #### 0 0071, 61985, 58212 ####[facility] [facility] [place] [address], [facility] POC GLUCOSE LABon 05-27-2021 Glucose [Mass/Vol] 134 mg/dL High 70-100 [facility] Comment on above: Performed By: #### 8 5499 ####[facility] [facility] [place] [address], [facility] Glucose [Mass/Vol] 109 mg/dL High 70-100 [facility] Comment on above: Performed By: #### 8 5499 ####[facility] [facility] [place] [address], [facility] Glucose [Mass/Vol] 151 mg/dL High 70-100 [facility] Comment on above: Performed By: #### 8 5499 ####[place] [address] [facility] [place] [address], [facility] Glucose [Mass/Vol] 114 mg/dL High 70-100 [facility] Comment on above: Performed By: #### 8 5499 ####[facility] PORTABLE CHEST 1 VIEWon PORTABLE CHEST 1 VIEW Normal [facility] Comment on above: Order Comment: evalu ate for Atelectasis RBC'S 1 UNITon 05-27-2021 CROSSMATCH INTERP 1 COMP Normal The [facility] Comment on above: Performed By: #### 8 6001 ####[facility] [facility].[address] PRODUCT CODE 1 E0336 Normal The [facility] Comment on above: Performed By: #### 8 6001 ####[address] PRODUCT STATUS 1 PT Normal The [facility] Comment on above: Result Comment: Resu lt changed by IF on 05/27/2021 11:45. The previous value was XM.Result changed by IF on 05/28/2021 00:30. The previous value was IS. Performed By: #### 8 6001 ####[facility] [place] [address], [facility] UNIT ABO 1 O Normal [facility] Comment on above: Performed By: #### 8 6001 ####[facility] [place] [address], [facility] UNIT ID 1 [id number] Normal The [facility] Comment on above: Performed By: #### 8 6001 ####[facility] [facility] [place] [address], [facility] UNIT RH 1 Negative Normal [facility] Comment on above: Performed By: #### 8 6001 ####[facility] [facility] [place] [address], [facility] SEDIMENTATION RATEon 021 SED RATE 48 mm/hr High 0-10 [facility] Comment on above: Performed By: #### 5 6506, 03707 ####[facility] [facility].[address] VANCOMYCIN RANDOMon 05-27-20 21 VANCOMYCIN RAND 12.2 mcg/mL Normal [facility] Comment on above: Performed By: #### 0 0071, 35576, 66061 ####[facility] [facility].[address] BASIC METABOLIC PANELon 10-0 Calcium [Mass/Vol] 8.2 mg/dL Low 8.6-10.[address] [facility] Comment on above: Order Comment: No: D o not add to previous draw Performed By: #### 1 0070, 68162 ####[facility] Chloride [Moles/Vol] 98 mmol/L Normal 98-107 [facility] Comment on above: Order Comment: No: D o not add to previous draw Performed By: #### 1 69, 39933 ####[facility] [place] [address], [facility] CO2 [Moles/Vol] 30 mmol/L Normal 21-31 [facility] Comment on above: Order Comment: No: D o not add to previous draw Performed By: #### 1 69, 93667 ####[facility] [place] [address], [facility] Creatinine [Mass/Vol] 1.78 mg/dL High 0.70-1.30 [facility] Comment on above: Order Comment: No: D o not add to previous draw Performed By: #### 1 69, 14847 ####[facility] [place] [address], [facility] eGFR- 45 ml/min/1.73sq m Abnormal >60 [facility] Comment on above: Order Comment: No: D o not add to previous draw Result Comment: Calc ulation may not be valid for patients over 70 years Performed By: #### 1 69, 66031 ####[facility] [facility] [place] [address], [facility] eGFR- non- 37 ml/min/1.73sq m Abnormal >60 [facility] Comment on above: Order Comment: No: D o not add to previous draw Result Comment: Calc ulation may not be valid for patients over 70 years Performed By: #### 1 69, 42739 ####[facility] [place] [address], [place] Glucose [Mass/Vol] 97 mg/dL Normal 70-[address] [facility] Comment on above: Order Comment: No: D o not add to previous draw Performed By: #### 1 69, 00398 ####[facility] [place] [address], [place] Potassium [Moles/Vol] 4.8 mmol/L Normal 3.5-5.1 [facility] Comment on above: Order Comment: No: D o not add to previous draw Performed By: #### 1 69, 86627 ####[facility] [place] [address], [facility] Sodium [Moles/Vol] 131 mmol/L Low 136-145 [facility] Comment on above: Order Comment: No: D o not add to previous draw Performed By: #### 1 69, 07499 ####[facility]3000 [facility].[address] Urea nitrogen [Mass/Vol] 35 mg/dL High 7-25 [facility] Comment on above: Order Comment: No: D o not add to previous draw Performed By: #### 1 69, 63088 ####[facility]3000 [facility].[address] CBC COMPLETE BLOOD COUNTon Erythrocyte distribution width (RBC) [Ratio] 15.4 % High 11.5-15.0 [facility] Comment on above: Order Comment: No: D o not add to previous drawNurse draw Performed By: #### 5 0608 ####[place] [address] [facility].[address] Hematocrit (Bld) [Volume fraction] 24.3 % Low 39.0-50.0 [facility] Comment on above: Order Comment: No: D o not add to previous drawNurse draw Performed By: #### 5 0608 ####[place] [address] [facility].[address] Hemoglobin (Bld) [Mass/Vol] 7.9 g/dL Low 13.0-17.0 [facility] Comment on above: Order Comment: No: D o not add to previous drawNurse draw Performed By: #### 5 0608 ####[facility] MCH (RBC) [Entitic mass] 28.6 pg Normal 27.0-33.0 [facility] Comment on above: Order Comment: No: D o not add to previous drawNurse draw Performed By: #### 5 0608 ####[facility] MCHC (RBC) [Mass/Vol] 32.5 g/dL Normal 32.0-35.0 [facility] Comment on above: Order Comment: No: D o not add to previous drawNurse draw Performed By: #### 5 0608 ####[address] MCV (RBC) [Entitic vol] 88.0 fL Normal 82.0-98.0 [facility] Comment on above: Order Comment: No: D o not add to previous drawNurse draw Performed By: #### 5 0608 ####[facility] Nucleated RBC/100 WBC (Bld) [Ratio] 0 % Normal 0-0 [facility] Comment on above: Order Comment: No: D o not add to previous drawNurse draw Performed By: #### 5 0608 ####[facility] PLAT CNT 320 10*3/uL Normal 150-400 [facility] Comment on above: Order Comment: No: D o not add to previous drawNurse draw Performed By: #### 5 0608 ####[facility] [place] [address], [facility] RBC (Bld) [#/Vol] 2.76 10*6/uL Low 4.20-5.70 [facility] Comment on above: Order Comment: No: D o not add to previous drawNurse draw Performed By: #### 5 0608 ####[facility] [place] [address], [facility] WBC (Bld) [#/Vol] 7.52 10*3/uL Normal 4.00-10.60 [facility] Comment on above: Order Comment: No: D o not add to previous drawNurse draw Performed By: #### 5 0608 ####[facility] [place] [address], [facility] MAGNESIUM BLOODon 05-26-2021 Magnesium [Mass/Vol] 2.1 mg/dL Normal 1.9-2.7 [facility] Comment on above: Order Comment: No: D o not add to previous draw Performed By: #### 1 0070, 27669 ####[facility] [place] [address], [facility] POC GLUCOSE LABon 05-26-2021 Glucose [Mass/Vol] 138 mg/dL High 70-100 [facility] Comment on above: Performed By: #### 8 5499 ####[facility] [place] [address], [facility] Glucose [Mass/Vol] 119 mg/dL High 70-100 [facility] Comment on above: Performed By: #### 8 5499 ####[facility] [place] [address], [facility] Glucose [Mass/Vol] 118 mg/dL High 70-100 [facility] Comment on above: Performed By: #### 8 5499 ####[facility] [place] [address], [facility] PORTABLE CHEST 1 VIEWon PORTABLE CHEST 1 VIEW Normal [facility] Comment on above: Order Comment: evalu ate for Atelectasis BASIC METABOLIC PANELon Calcium [Mass/Vol] 8.1 mg/dL Low 8.6-10.3 [facility] Comment on above: Order Comment: No: D o not add to previous draw Performed By: #### 3 0953, 60865, 71576 ####[facility] [place] [address], [facility] Chloride [Moles/Vol] 95 mmol/L Low 98-107 [facility] Comment on above: Order Comment: No: D o not add to previous draw Performed By: #### 3 0953, 30540, 40385 ####[facility] [place] [address], [facility] CO2 [Moles/Vol] 27 mmol/L Normal 21-31 The [facility] Comment on above: Order Comment: No: D o not add to previous draw Performed By: #### 3 0953, 88341, 96829 ####[facility] [facility] [place] [address], [facility] Creatinine [Mass/Vol] 2.13 mg/dL High 0.70-1.30 [facility] Comment on above: Order Comment: No: D o not add to previous draw Performed By: #### 3 0953, 55907, 88318 ####[facility] [facility].[address] eGFR- 37 ml/min/1.73sq m Abnormal >60 [facility] Comment on above: Order Comment: No: D o not add to previous draw Result Comment: Calc ulation may not be valid for patients over 70 years Performed By: #### 3 0953, 46730, 92307 ####[facility] [facility] [place] [address], [facility] eGFR- non- 30 ml/min/1.73sq m Abnormal >60 [facility] Comment on above: Order Comment: No: D o not add to previous draw Result Comment: Calc ulation may not be valid for patients over 70 years Performed By: #### 3 0953, 94389, 55245 ####[facility] [place] [address], [facility] Glucose [Mass/Vol] 122 mg/dL High 70-100 [facility] Comment on above: Order Comment: No: D o not add to previous draw Performed By: #### 3 0953, 43249, 31856 ####[facility] [place] [address], [facility] Potassium [Moles/Vol] 4.8 mmol/L Normal 3.5-5.1 [facility] Comment on above: Order Comment: No: D o not add to previous draw Performed By: #### 3 0953, 55954, 90736 ####[facility] [place] [address], [facility] Sodium [Moles/Vol] 128 mmol/L Low 136-145 [facility] Comment on above: Order Comment: No: D o not add to previous draw Performed By: #### 3 0953, 47224, 81123 ####[facility] [facility].[address] Urea nitrogen [Mass/Vol] 35 mg/dL High 7-25 [facility] Comment on above: Order Comment: No: D o not add to previous draw Performed By: #### 3 0953, 06411, 48511 ####[facility] [facility].[address] CBC COMPLETE BLOOD COUNTon Erythrocyte distribution width (RBC) [Ratio] 15.8 % High 11.5-15.0 [facility] Comment on above: Order Comment: No: D o not add to previous draw Performed By: #### 5 0608 ####[facility] [place] [address], [facility] Hematocrit (Bld) [Volume fraction] 22.3 % Low 39.0-50.0 [facility] Comment on above: Order Comment: No: D o not add to previous draw Performed By: #### 5 0608 ####[facility] Hemoglobin (Bld) [Mass/Vol] 7.3 g/dL Low 13.0-17.0 [facility] Comment on above: Order Comment: No: D o not add to previous draw Performed By: #### 5 0608 ####[facility] MCH (RBC) [Entitic mass] 28.7 pg Normal 27.0-33.0 [facility] Comment on above: Order Comment: No: D o not add to previous draw Performed By: #### 5 0608 ####[place] [address] MCHC (RBC) [Mass/Vol] 32.7 g/dL Normal 32.0-35.0 [facility] Comment on above: Order Comment: No: D o not add to previous draw Performed By: #### 5 0608 ####[address] MCV (RBC) [Entitic vol] 87.8 fL Normal 82.0-98.0 [facility] Comment on above: Order Comment: No: D o not add to previous draw Performed By: #### 5 0608 ####[address] Nucleated RBC/100 WBC (Bld) [Ratio] 0 % Normal 0-0 [facility] Comment on above: Order Comment: No: D o not add to previous draw Performed By: #### 5 0608 ####[address] PLAT CNT 292 10*3/uL Normal 150-400 [facility] Comment on above: Order Comment: No: D o not add to previous draw Performed By: #### 5 0608 ####[facility] [place] [address], [facility] RBC (Bld) [#/Vol] 2.54 10*6/uL Low 4.20-5.70 The [facility] Comment on above: Order Comment: No: D o not add to previous draw Performed By: #### 5 0608 ####[facility] [place] [address], [facility] WBC (Bld) [#/Vol] 8.90 10*3/uL Normal 4.00-10.60 [facility] Comment on above: Order Comment: No: D o not add to previous draw Performed By: #### 5 0608 ####[facility] [facility].[address] HEMATOCRITon 05-25-2021 Hematocrit (Bld) [Volume fraction] 25.1 % Low 39.0-50.0 [facility] Comment on above: Order Comment: No: D o not add to previous draw Performed By: #### 9 2088, 37670 ####[facility] [facility].[address] HEMOGLOBINon 05-25-2021 Hemoglobin (Bld) [Mass/Vol] 8.4 g/dL Low 13.0-17.0 [facility] Comment on above: Order Comment: No: D o not add to previous draw Performed By: #### 9 2088, 41071 ####[facility] [place] [address], [facility] MAGNESIUM BLOODon 05-25-2021 Magnesium [Mass/Vol] 2.0 mg/dL Normal 1.9-2.7 [facility] Comment on above: Order Comment: No: D o not add to previous draw Performed By: #### 3 0953, 43222, 72345 ####[facility] [place] [address], [facility] POC GLUCOSE LABon 05-25-2021 Glucose [Mass/Vol] 136 mg/dL High 70-100 [facility] Comment on above: Performed By: #### 8 5499 ####[facility] [facility] [place] [address], [place] Glucose [Mass/Vol] 115 mg/dL High 70-100 [facility] Comment on above: Performed By: #### 8 5499 ####[facility] [facility] [place] [address], [facility] Glucose [Mass/Vol] 72 mg/dL Normal 70-100 [facility] Comment on above: Performed By: #### 8 5499 ####[facility] [facility] [place] [address], [facility] Glucose [Mass/Vol] 154 mg/dL High 70-100 [facility] Comment on above: Performed By: #### 8 5499 ####[facility] [place] [address].[place] [address], [facility] PORTABLE CHEST 1 VIEWon PORTABLE CHEST 1 VIEW Normal [facility] Comment on above: Order Comment: Evalu ate for Effusion RBC'S 2 UNITSon 05-25-2021 CROSSMATCH INTERP 1 COMP Normal [facility] Comment on above: Performed By: #### 8 6002 ####[facility] [facility] [place] [address], [facility] CROSSMATCH INTERP 2 COMP Normal [facility] Comment on above: Performed By: #### 8 6002 ####[facility] [facility] [place] [address], [facility] PRODUCT CODE 1 E0686 Normal The [facility] Comment on above: Performed By: #### 8 6002 ####[facility] [place] [address], [facility] PRODUCT CODE 2 E0336 Normal The [facility] Comment on above: Performed By: #### 8 6002 ####[facility] [place] [address], [facility] PRODUCT STATUS 1 PT Normal The [facility] Comment on above: Result Comment: Resu lt changed by IF on 05/25/2021 13:50. The previous value was XM.Result changed by IF on 05/26/2021 00:30. The previous value was IS. Performed By: #### 8 6002 ####[facility] [place] [address], [facility] PRODUCT STATUS 2 PT Normal [facility] Comment on above: Result Comment: Resu lt changed by IF on 05/25/2021 09:50. The previous value was XM.Result changed by IF on 05/26/2021 00:30. The previous value was IS. Performed By: #### 8 6002 ####[facility] [place] [address], [facility] UNIT ABO 1 O Normal [facility] Comment on above: Performed By: #### 8 6002 ####[facility] [place] [address], [facility] UNIT ABO 2 O Normal [facility] Comment on above: Performed By: #### 8 6002 ####[facility] [place] [address], [facility] UNIT ID 1 [id number] Normal The [facility] Comment on above: Performed By: #### 8 6002 ####[facility] [place] [address], [facility] UNIT ID 2 [id number] Normal The [facility] Comment on above: Performed By: #### 8 6002 ####[facility] [place] [address], [place] UNIT RH 1 Positive Normal [facility] Comment on above: Performed By: #### 8 6002 ####[facility] [place] [address], [place] UNIT RH 2 Positive Normal [facility] Comment on above: Performed By: #### 8 6002 ####[facility] [place] [address], [place] VANCOMYCIN TIMEDon VANCOMYCIN TIMED 24.3 mcg/mL Normal [facility] Comment on above: Performed By: #### 3 0953, 64754, 74924 ####[facility] [place] [address], [place] BASIC METABOLIC PANELon 10-0 Calcium [Mass/Vol] 7.8 mg/dL Low 8.6-10.[address] [facility] Comment on above: Order Comment: No: D o not add to previous draw Performed By: #### 0 0071, 39844, 87127, 90641 ####[facility] [place] [address], [place] Chloride [Moles/Vol] 97 mmol/L Low 98-107 [facility] Comment on above: Order Comment: No: D o not add to previous draw Performed By: #### 0 0071, 25759, 62259, 89760 ####[facility] [place] [address], [place] CO2 [Moles/Vol] 30 mmol/L Normal 21-31 The [facility] Comment on above: Order Comment: No: D o not add to previous draw Performed By: #### 0 0071, 47196, 24848, 58187 ####[facility] [place] [address], [place] Creatinine [Mass/Vol] 1.70 mg/dL High 0.70-1.30 [facility] Comment on above: Order Comment: No: D o not add to previous draw Performed By: #### 0 0071, 39511, 87282, 43679 ####[facility] [place] [address], [facility] eGFR- 48 ml/min/1.73sq m Abnormal >60 [facility] Comment on above: Order Comment: No: D o not add to previous draw Result Comment: Calc ulation may not be valid for patients over 70 years Performed By: #### 0 0071, 99525, 52825, 97940 ####[facility] [facility].[address] eGFR- non- 39 ml/min/1.73sq m Abnormal >60 [facility] Comment on above: Order Comment: No: D o not add to previous draw Result Comment: Calc ulation may not be valid for patients over 70 years Performed By: #### 0 0071, 43393, 47002, 35915 ####[facility] [facility] [place] [address], [facility] Glucose [Mass/Vol] 132 mg/dL High 70-100 [facility] Comment on above: Order Comment: No: D o not add to previous draw Performed By: #### 0 0071, 39293, 12029, 71424 ####[facility] [place] [address], [facility] Potassium [Moles/Vol] 5.2 mmol/L High 3.5-5.1 [facility] Comment on above: Order Comment: No: D o not add to previous draw Performed By: #### 0 0071, 52568, 11277, 82601 ####[facility] [place] [address], [place] Sodium [Moles/Vol] 131 mmol/L Low 136-145 [facility] Comment on above: Order Comment: No: D o not add to previous draw Performed By: #### 0 0071, 39890, 29561, 60536 ####[facility] [facility].[address] Urea nitrogen [Mass/Vol] 27 mg/dL High 7-25 [facility] Comment on above: Order Comment: No: D o not add to previous draw Performed By: #### 0 0071, 67588, 91832, 85773 ####[facility] [facility].[address] CBC COMPLETE BLOOD COUNTon Erythrocyte distribution width (RBC) [Ratio] 14.5 % Normal 11.5-15.0 [facility] Comment on above: Order Comment: No: D o not add to previous draw Performed By: #### 5 0608 ####[facility] [facility].[address] Hematocrit (Bld) [Volume fraction] 23.1 % Low 39.0-50.0 [facility] Comment on above: Order Comment: No: D o not add to previous draw Performed By: #### 5 0608 ####[facility] [facility].[address] Hemoglobin (Bld) [Mass/Vol] 7.4 g/dL Low 13.0-17.0 [facility] Comment on above: Order Comment: No: D o not add to previous draw Performed By: #### 5 0608 ####[facility] [facility] [place] [address], [facility] MCH (RBC) [Entitic mass] 28.9 pg Normal 27.0-33.0 [facility] Comment on above: Order Comment: No: D o not add to previous draw Performed By: #### 5 0608 ####[facility]3000 [facility].[address] MCHC (RBC) [Mass/Vol] 32.0 g/dL Normal 32.0-35.0 [facility] Comment on above: Order Comment: No: D o not add to previous draw Performed By: #### 5 0608 ####[facility] [place] [address], [facility] MCV (RBC) [Entitic vol] 90.2 fL Normal 82.0-98.0 [facility] Comment on above: Order Comment: No: D o not add to previous draw Performed By: #### 5 0608 ####[facility] [facility].[address] Nucleated RBC/100 WBC (Bld) [Ratio] 0 % Normal 0-0 [facility] Comment on above: Order Comment: No: D o not add to previous draw Performed By: #### 5 0608 ####[facility] [facility] [place] [address], [facility] PLAT CNT 312 10*3/uL Normal 150-400 [facility] Comment on above: Order Comment: No: D o not add to previous draw Performed By: #### 5 0608 ####[facility] [facility].[address] RBC (Bld) [#/Vol] 2.56 10*6/uL Low 4.20-5.70 The [facility] Comment on above: Order Comment: No: D o not add to previous draw Performed By: #### 5 0608 ####[facility] [facility] [place] [address], [facility] WBC (Bld) [#/Vol] 10.23 10*3/uL Normal 4.00-10.60 [facility] Comment on above: Order Comment: No: D o not add to previous draw Performed By: #### 5 0608 ####[facility] [place] [address], [facility] MAGNESIUM BLOODon 05-24-2021 Magnesium [Mass/Vol] 1.8 mg/dL Low 1.9-2.7 [facility] Comment on above: Order Comment: No: D o not add to previous draw Performed By: #### 0 0071, 19074, 02532, 68939 ####[facility] [place] [address], [place] PHOSPHORUS BLOODon Phosphate [Mass/Vol] 5.0 mg/dL Normal 2.5-5.0 [facility] Comment on above: Order Comment: No: D o not add to previous draw Performed By: #### 0 0071, 91918, 79897, 77788 ####[facility] [place] [address], [facility] POC GLUCOSE LABon 05-24-2021 Glucose [Mass/Vol] 156 mg/dL High 70-100 [facility] Comment on above: Performed By: #### 8 5499 ####[facility] [facility] [place] [address], [place] Glucose [Mass/Vol] 129 mg/dL High 70-100 [facility] Comment on above: Performed By: #### 8 5499 ####[facility] [facility] [place] [address], [place] Glucose [Mass/Vol] 188 mg/dL High 70-100 [facility] Comment on above: Performed By: #### 8 5499 ####[facility] [place] [address], [place] Glucose [Mass/Vol] 141 mg/dL High 70-100 [facility] Comment on above: Performed By: #### 8 5499 ####[facility] [place] [address], [place] RBC'S 1 UNITon 05-24-2021 CROSSMATCH INTERP 1 COMP Normal [facility] Comment on above: Performed By: #### 8 6001 ####[facility] [place] [address], [facility] PRODUCT CODE 1 E0332 Normal The [facility] Comment on above: Performed By: #### 8 6001 ####[facility] [place] [address], [facility] PRODUCT STATUS 1 PT Normal [facility] Comment on above: Result Comment: Resu lt changed by IF on 05/24/2021 11:33. The previous value was XM.Result changed by IF on 05/25/2021 00:30. The previous value was IS. Performed By: #### 8 6001 ####[facility] [place] [address], [facility] UNIT ABO 1 O Normal [facility] Comment on above: Performed By: #### 8 6001 ####[facility] [place] [address], [facility] UNIT ID 1 [id number] Normal The [facility] Comment on above: Performed By: #### 8 6001 ####[facility] [facility] [place] [address], [facility] UNIT RH 1 Positive Normal [facility] Comment on above: Performed By: #### 8 6001 ####[facility] [place] [address], [facility] TYPE AND SCREENon 05-24-2021 ABO INTERPRETATION O Normal [facility] Comment on above: Performed By: #### 6 2586 ####[facility] [place] [address], [facility] RH INTERPRETATION Positive Normal [facility] Comment on above: Performed By: #### 6 2586 ####[facility] [place] [address], [facility] VANCOMYCIN TIMEDon VANCOMYCIN TIMED 42.1 mcg/mL Normal [facility] Comment on above: Performed By: #### 0 0071, 28993, 97230, 19225 ####[facility] [facility] [place] [address], [facility] BASIC METABOLIC PANELon 09-3 Calcium [Mass/Vol] 8.7 mg/dL Normal 8.6-10.3 [facility] Comment on above: Order Comment: No: D o not add to previous draw Performed By: #### 4 1000, 44801, 78839 ####[facility] [facility] [place] [address], [facility] Chloride [Moles/Vol] 97 mmol/L Low 98-107 [facility] Comment on above: Order Comment: No: D o not add to previous draw Performed By: #### 4 1000, 94373, 26112 ####[facility] [facility] [place] [address], [facility] CO2 [Moles/Vol] 32 mmol/L High 21-31 The [facility] Comment on above: Order Comment: No: D o not add to previous draw Performed By: #### 4 1000, 27115, 48110 ####[facility] [facility] [place] [address], [facility] Creatinine [Mass/Vol] 1.31 mg/dL High 0.70-1.30 [facility] Comment on above: Order Comment: No: D o not add to previous draw Performed By: #### 4 1000, 13876, 16359 ####[facility] [facility] [place] [address], [facility] eGFR- non- 53 ml/min/1.73sq m Abnormal >60 [facility] Comment on above: Order Comment: No: D o not add to previous draw Result Comment: Calc ulation may not be valid for patients over 70 years Performed By: #### 4 1000, 66480, 38747 ####[facility] [facility] [place] [address], [facility] GFR/1.73 sq M.predicted among blacks MDRD (S/P/Bld) [Vol rate/Area] mL/min/{1.73_m2} Normal >60 [facility] Comment on above: Order Comment: No: D o not add to previous draw Result Comment: Calc ulation may not be valid for patients over 70 years Performed By: #### 4 1000, 21929, 56180 ####[facility] [facility] [place] [address], [facility] Glucose [Mass/Vol] 105 mg/dL High 70-100 The [facility] Comment on above: Order Comment: No: D o not add to previous draw Performed By: #### 4 1000, 71266, 36292 ####[facility] [facility] [place] [address], [facility] Potassium [Moles/Vol] 4.0 mmol/L Normal 3.5-5.1 [facility] Comment on above: Order Comment: No: D o not add to previous draw Performed By: #### 4 1000, 74324, 48378 ####[facility] [facility] [address], [facility] Sodium [Moles/Vol] 133 mmol/L Low 136-145 [facility] Comment on above: Order Comment: No: D o not add to previous draw Performed By: #### 4 1000, 89211, 39928 ####[facility] [facility] [place] [address], [facility] Urea nitrogen [Mass/Vol] 24 mg/dL Normal 7-25 [facility] Comment on above: Order Comment: No: D o not add to previous draw Performed By: #### 4 1000, 80883, 59510 ####[facility] CBC COMPLETE BLOOD COUNTon 0 05-23-2021 Erythrocyte distribution width (RBC) [Ratio] 14.3 % Normal 11.5-15.0 [facility] Comment on above: Order Comment: No: D o not add to previous draw Performed By: #### 5 0608 ####[facility] Hematocrit (Bld) [Volume fraction] 29.4 % Low 39.0-50.0 [facility] Comment on above: Order Comment: No: D o not add to previous draw Performed By: #### 5 0608 ####[address] Hemoglobin (Bld) [Mass/Vol] 9.4 g/dL Low 13.0-17.0 [facility] Comment on above: Order Comment: No: D o not add to previous draw Performed By: #### 5 0608 ####[facility] [place] [address] MCH (RBC) [Entitic mass] 28.5 pg Normal 27.0-33.0 [facility] Comment on above: Order Comment: No: D o not add to previous draw Performed By: #### 5 0608 ####[facility] [place] [address] MCHC (RBC) [Mass/Vol] 32.0 g/dL Normal 32.0-35.0 [facility] Comment on above: Order Comment: No: D o not add to previous draw Performed By: #### 5 0608 ####[address] MCV (RBC) [Entitic vol] 89.1 fL Normal 82.0-98.0 [facility] Comment on above: Order Comment: No: D o not add to previous draw Performed By: #### 5 0608 ####[facility] [facility].[address] Nucleated RBC/100 WBC (Bld) [Ratio] 0 % Normal 0-0 [facility] Comment on above: Order Comment: No: D o not add to previous draw Performed By: #### 5 0608 ####[facility] [facility] [place] [address], [facility] PLAT CNT 342 10*3/uL Normal 150-400 [facility] Comment on above: Order Comment: No: D o not add to previous draw Performed By: #### 5 0608 ####[address] RBC (Bld) [#/Vol] 3.30 10*6/uL Low 4.20-5.70 The [facility] Comment on above: Order Comment: No: D o not add to previous draw Performed By: #### 5 0608 ####[facility] [facility] [place] [address], [facility] WBC (Bld) [#/Vol] 7.22 10*3/uL Normal 4.00-10.60 The [facility] Comment on above: Order Comment: No: D o not add to previous draw Performed By: #### 5 0608 ####[facility] [facility].[address] MAGNESIUM BLOODon 05-23-2021 Magnesium [Mass/Vol] 1.9 mg/dL Normal 1.9-2.7 [facility] Comment on above: Order Comment: No: D o not add to previous draw Performed By: #### 4 1000, 77592, 71758 ####[facility] [facility] [place] [address], [facility] PHOSPHORUS BLOODon Phosphate [Mass/Vol] 3.4 mg/dL Normal 2.5-5.0 [facility] Comment on above: Order Comment: No: D o not add to previous draw Performed By: #### 4 1000, 96473, 35557 ####[facility] [place] [address], [place] POC GLUCOSE LABon 05-23-2021 Glucose [Mass/Vol] 141 mg/dL High 70-100 [facility] Comment on above: Performed By: #### 8 5499 ####[facility] [place] [address], [place] Glucose [Mass/Vol] 147 mg/dL High 70-100 [facility] Comment on above: Performed By: #### 8 5499 ####[facility] [place] [address], [place] Glucose [Mass/Vol] 138 mg/dL High 70-100 The [facility] Comment on above: Performed By: #### 8 5499 ####[facility] [place] [address], [place] Glucose [Mass/Vol] 112 mg/dL High 70-100 [facility] Comment on above: Performed By: #### 8 5499 ####[facility] [place] [address], [place] Glucose [Mass/Vol] 121 mg/dL High 70-100 The [facility] Comment on above: Performed By: #### 8 5499 ####[facility] [place] [address], [place] POC SARS COV2 ANTIGEN NEGATI VEon 05-23-2021 POC SARS COV2 ANTIGEN NEG Negative Normal NEGATIVE The [facility] Comment on above: Result Comment: Nega [...] of clinicalsigns and symptoms consistent with COVID-19.The [employer] COW COVID-19 Ag Card is a lateral flow immunoassay intended forthe qualitative detection of nucleocapsid protein antigen [id number] in direct nasal swabs from individuals within [...] Certificate ofAccreditation. Performed By: #### 3 1977 ####[facility] PORTABLE CHEST 1 VIEWon 04-26 PORTABLE CHEST 1 VIEW Normal [facility] Comment on above: Order Comment: evalu ate for Atelectasis VANCOMYCIN RANDOMon 05-23-20 VANCOMYCIN RAND 19.6 mcg/mL Normal The [facility] Comment on above: Order Comment: No: D o not add to previous draw Performed By: #### 9 4980 ####[facility] BASIC METABOLIC PANELon 04-25 Calcium [Mass/Vol] 8.6 mg/dL Normal 8.6-10.3 The [facility] Comment on above: Order Comment: No: D o not add to previous draw Performed By: #### 0 0071, 87030, 08709 ####[facility] Chloride [Moles/Vol] 98 mmol/L Normal 98-107 [facility] Comment on above: Order Comment: No: D o not add to previous draw Performed By: #### 0 0071, 91377, 27065 ####[facility] [facility] [place] [address], [facility] CO2 [Moles/Vol] 33 mmol/L High 21-31 The [facility] Comment on above: Order Comment: No: D o not add to previous draw Performed By: #### 0 0071, 86611, 76486 ####[facility] [facility] [place] [address], [facility] Creatinine [Mass/Vol] 1.21 mg/dL Normal 0.70-1.30 [facility] Comment on above: Order Comment: No: D o not add to previous draw Performed By: #### 0 0071, 50900, 02347 ####[facility] [facility].[address] eGFR- non- 58 ml/min/1.73sq m Abnormal >60 [facility] Comment on above: Order Comment: No: D o not add to previous draw Result Comment: Calc ulation may not be valid for patients over 70 years Performed By: #### 0 0071, 04153, 34640 ####[facility] [facility] [place] [address], [facility] GFR/1.73 sq M.predicted among blacks MDRD (S/P/Bld) [Vol rate/Area] mL/min/{1.73_m2} Normal >60 [facility] Comment on above: Order Comment: No: D o not add to previous draw Result Comment: Calc ulation may not be valid for patients over 70 years Performed By: #### 0 0071, 64595, 15563 ####[facility] [facility] [place] [address], [facility] Glucose [Mass/Vol] 115 mg/dL High 70-[address] [facility] Comment on above: Order Comment: No: D o not add to previous draw Performed By: #### 0 0071, 11953, 36937 ####[facility] [place] [address], [facility] Potassium [Moles/Vol] 3.9 mmol/L Normal 3.5-5.1 [facility] Comment on above: Order Comment: No: D o not add to previous draw Performed By: #### 0 0071, 78758, 10227 ####[facility] [place] [address], [facility] Sodium [Moles/Vol] 135 mmol/L Low 136-145 The [facility] Comment on above: Order Comment: No: D o not add to previous draw Performed By: #### 0 0071, 04963, 42862 ####[facility] [place] [address], [facility] Urea nitrogen [Mass/Vol] 22 mg/dL Normal 7-25 [facility] Comment on above: Order Comment: No: D o not add to previous draw Performed By: #### 0 0071, 65136, 91675 ####[facility] CBC COMPLETE BLOOD COUNTon 0 05-22-2021 Erythrocyte distribution width (RBC) [Ratio] 14.3 % Normal 11.5-15.0 [facility] Comment on above: Order Comment: No: D o not add to previous draw Performed By: #### 5 0608 ####[facility] [place] [address], [facility] Hematocrit (Bld) [Volume fraction] 24.7 % Low 39.0-50.0 [facility] Comment on above: Order Comment: No: D o not add to previous draw Performed By: #### 5 0608 ####[facility] [id number], [facility] Hemoglobin (Bld) [Mass/Vol] 7.6 g/dL Low 13.0-17.0 [facility] Comment on above: Order Comment: No: D o not add to previous draw Performed By: #### 5 0608 ####[facility] MCH (RBC) [Entitic mass] 28.3 pg Normal 27.0-33.0 [facility] Comment on above: Order Comment: No: D o not add to previous draw Performed By: #### 5 0608 ####[facility] MCHC (RBC) [Mass/Vol] 30.8 g/dL Low 32.0-35.0 [facility] Comment on above: Order Comment: No: D o not add to previous draw Performed By: #### 5 0608 ####[address] MCV (RBC) [Entitic vol] 91.8 fL Normal 82.0-98.0 [facility] Comment on above: Order Comment: No: D o not add to previous draw Performed By: #### 5 0608 ####[place] [address] [address] Nucleated RBC/100 WBC (Bld) [Ratio] 0 % Normal 0-0 [facility] Comment on above: Order Comment: No: D o not add to previous draw Performed By: #### 5 0608 ####[address] PLAT CNT 313 10*3/uL Normal 150-400 [facility] Comment on above: Order Comment: No: D o not add to previous draw Performed By: #### 5 0608 ####[address] RBC (Bld) [#/Vol] 2.69 10*6/uL Low 4.20-5.70 [facility] Comment on above: Order Comment: No: D o not add to previous draw Performed By: #### 5 0608 ####[facility] [facility] [place] [address], [facility] WBC (Bld) [#/Vol] 7.75 10*3/uL Normal 4.00-10.60 [facility] Comment on above: Order Comment: No: D o not add to previous draw Performed By: #### 5 0608 ####[facility] [facility] [place] [address], [facility] MAGNESIUM BLOODon 05-22-2021 Magnesium [Mass/Vol] 1.9 mg/dL Normal 1.9-2.7 [facility] Comment on above: Order Comment: No: D o not add to previous draw Performed By: #### 0 0071, 06465, 91011 ####[facility] [facility], [place] [address] [place] [address] Operative Reporton Operative Report Normal [facility] POC GLUCOSE LABon 05-22-2021 Glucose [Mass/Vol] 126 mg/dL High 70-100 [facility] Comment on above: Performed By: #### 8 5499 ####[facility] [facility] [place] [address], [facility] Glucose [Mass/Vol] 136 mg/dL High 70-100 [facility] Comment on above: Performed By: #### 8 5499 ####[facility] [facility] [place] [address], [facility] Glucose [Mass/Vol] 156 mg/dL High 70-100 [facility] Comment on above: Performed By: #### 8 5499 ####[facility] [facility] [place] [address], [facility] PORTABLE CHEST 1 VIEWon 04-25 PORTABLE CHEST 1 VIEW Normal [facility] Comment on above: Order Comment: Evalu ate for Atelectasis, common RBC'S 1 UNITon 05-22-2021 CROSSMATCH INTERP 1 COMP Normal [facility] Comment on above: Performed By: #### 8 6001 ####[facility] PRODUCT CODE 1 E0336 Normal The [facility] Comment on above: Performed By: #### 8 6001 ####[facility] [facility].[address] PRODUCT STATUS 1 PT Normal [facility] Comment on above: Result Comment: Resu lt changed by IF on 05/22/2021 13:33. The previous value was XM.Result changed by IF on 05/23/2021 00:30. The previous value was IS. Performed By: #### 8 6001 ####[facility] [facility].[address] UNIT ABO 1 O Normal [facility] Comment on above: Performed By: #### 8 6001 ####[facility] [facility].[address] UNIT ID 1 [id number] Normal The [facility] Comment on above: Performed By: #### 8 6001 ####[facility] [facility].[address] UNIT RH 1 Positive Normal [facility] Comment on above: Performed By: #### 8 6001 ####[facility] [facility] [place] [address], [facility] RBC'S 3 UNITSon 05-22-2021 CROSSMATCH INTERP 1 COMP Normal The [facility] Comment on above: Order Comment: Hemog lobin < 9 gm/dl with known cardiac or cerebrovascular disease Performed By: #### 8 6003 ####[facility] [place] [address], [facility] CROSSMATCH INTERP 2 COMP Normal [facility] Comment on above: Order Comment: Hemog lobin < 9 gm/dl with known cardiac or cerebrovascular disease Performed By: #### 8 6003 ####[facility] [place] [address], [facility] CROSSMATCH INTERP 3 COMP Normal [facility] Comment on above: Order Comment: Hemog lobin < 9 gm/dl with known cardiac or cerebrovascular disease Performed By: #### 8 6003 ####[facility] [place] [address], [facility] PRODUCT CODE 1 E0336 Normal The [facility] Comment on above: Order Comment: Hemog lobin < 9 gm/dl with known cardiac or cerebrovascular disease Performed By: #### 8 6003 ####[facility] [place] [address], [facility] PRODUCT CODE 2 E0685 Normal The [facility] Comment on above: Order Comment: Hemog lobin < 9 gm/dl with known cardiac or cerebrovascular disease Performed By: #### 8 6003 ####[facility] [place] [address], [facility] PRODUCT CODE 3 E0336 Normal The [facility] Comment on above: Order Comment: Hemog lobin < 9 gm/dl with known cardiac or cerebrovascular disease Performed By: #### 8 6003 ####[facility] [place] [address], [facility] PRODUCT STATUS 1 PT Normal [facility] Comment on above: Order Comment: Hemog lobin < 9 gm/dl with known cardiac or cerebrovascular disease Result Comment: Resu lt changed by IF on 05/22/2021 17:51. The previous value was XM.Result changed by IF on 05/23/2021 00:30. The previous value was IS. Performed By: #### 8 6003 ####[facility] [place] [address], [facility] PRODUCT STATUS 2 RE Normal [facility] Comment on above: Order Comment: Hemog lobin < 9 gm/dl with known cardiac or cerebrovascular disease Result Comment: Resu lt changed by IF on 05/24/2021 07:35. The previous value was XM. Performed By: #### 8 6003 ####[facility] [place] [address], [facility] PRODUCT STATUS 3 RE Normal [facility] Comment on above: Order Comment: Hemog lobin < 9 gm/dl with known cardiac or cerebrovascular disease Result Comment: Resu lt changed by IF on 05/24/2021 07:35. The previous value was XM. Performed By: #### 8 6003 ####[facility] [place] [address], [facility] UNIT ABO 1 O Normal [facility] Comment on above: Order Comment: Hemog lobin < 9 gm/dl with known cardiac or cerebrovascular disease Performed By: #### 8 6003 ####[facility] [facility] [place] [address], [facility] UNIT ABO 2 O Normal [facility] Comment on above: Order Comment: Hemog lobin < 9 gm/dl with known cardiac or cerebrovascular disease Performed By: #### 8 6003 ####[facility] [place] [address], [facility] UNIT ABO 3 O Normal [facility] Comment on above: Order Comment: Hemog lobin < 9 gm/dl with known cardiac or cerebrovascular disease Performed By: #### 8 6003 ####[facility] [place] [address], [facility] UNIT ID 1 [id number] Normal The [facility] Comment on above: Order Comment: Hemog lobin < 9 gm/dl with known cardiac or cerebrovascular disease Performed By: #### 8 6003 ####[facility] UNIT ID 2 [id number] Normal The [facility] Comment on above: Order Comment: Hemog lobin < 9 gm/dl with known cardiac or cerebrovascular disease Performed By: #### 8 6003 ####[facility] UNIT ID 3 [id number] Normal The [facility] Comment on above: Order Comment: Hemog lobin < 9 gm/dl with known cardiac or cerebrovascular disease Performed By: #### 8 6003 ####[facility] UNIT RH 1 Negative Normal [facility] Comment on above: Order Comment: Hemog lobin < 9 gm/dl with known cardiac or cerebrovascular disease Performed By: #### 8 6003 ####[facility] UNIT RH 2 Positive Normal [facility] Comment on above: Order Comment: Hemog lobin < 9 gm/dl with known cardiac or cerebrovascular disease Performed By: #### 8 6003 ####[facility] UNIT RH 3 Positive Normal [facility] Comment on above: Order Comment: Hemog lobin < 9 gm/dl with known cardiac or cerebrovascular disease Performed By: #### 8 6003 ####[facility] VANCOMYCIN TIMEDon 1 VANCOMYCIN TIMED 19.6 mcg/mL Normal [facility] Comment on above: Performed By: #### 0 0071, 78052, 89528 ####[facility] BASIC METABOLIC PANELon 09-2 Calcium [Mass/Vol] 8.5 mg/dL Low 8.6-10.[address] [facility] Comment on above: Order Comment: No: D o not add to previous draw Performed By: #### 1 0070, 62113, 40002 ####[facility] [place] [address], [facility] Chloride [Moles/Vol] 96 mmol/L Low 98-107 [facility] Comment on above: Order Comment: No: D o not add to previous draw Performed By: #### 1 0070, 88325, 60980 ####[facility] [place] [address], [facility] CO2 [Moles/Vol] 37 mmol/L High 21-31 [facility] Comment on above: Order Comment: No: D o not add to previous draw Performed By: #### 1 0070, 00647, 46823 ####[facility] [place] [address], [facility] Creatinine [Mass/Vol] 0.92 mg/dL Normal 0.70-1.30 [facility] Comment on above: Order Comment: No: D o not add to previous draw Performed By: #### 1 0070, 47836, 39052 ####[facility] [place] [address], [facility] GFR/1.73 sq M.predicted among blacks MDRD (S/P/Bld) [Vol rate/Area] mL/min/{1.73_m2} Normal >60 [facility] Comment on above: Order Comment: No: D o not add to previous draw Result Comment: Calc ulation may not be valid for patients over 70 years Performed By: #### 1 0070, 13865, 28626 ####[facility] [place] [address], [facility] GFR/1.73 sq M.predicted among non-blacks MDRD (S/P/Bld) [Vol rate/Area] mL/min/{1.73_m2} Normal >60 [facility] Comment on above: Order Comment: No: D o not add to previous draw Result Comment: Calc ulation may not be valid for patients over 70 years Performed By: #### 1 0070, 10446, 52005 ####[facility] [place] [address], [facility] Glucose [Mass/Vol] 117 mg/dL High 70-100 [facility] Comment on above: Order Comment: No: D o not add to previous draw Performed By: #### 1 0070, 58498, 31797 ####[facility] [facility] [place] [address], [facility] Potassium [Moles/Vol] 3.9 mmol/L Normal 3.5-5.1 [facility] Comment on above: Order Comment: No: D o not add to previous draw Performed By: #### 1 0070, 37796, 90412 ####[facility] [facility] [place] [address], [facility] Sodium [Moles/Vol] 134 mmol/L Low 136-145 [facility] Comment on above: Order Comment: No: D o not add to previous draw Performed By: #### 1 0070, 52195, 60243 ####[facility] [facility] [place] [address], [facility] Urea nitrogen [Mass/Vol] 17 mg/dL Normal 7-25 [facility] Comment on above: Order Comment: No: D o not add to previous draw Performed By: #### 1 0070, 49278, 73432 ####[facility] [facility].[address] CBC COMPLETE BLOOD COUNTon 0 05-21-2021 Erythrocyte distribution width (RBC) [Ratio] 14.3 % Normal 11.5-15.0 [facility] Comment on above: Order Comment: No: D o not add to previous draw Performed By: #### 5 0608 ####[facility] Hematocrit (Bld) [Volume fraction] 27.2 % Low 39.0-50.0 [facility] Comment on above: Order Comment: No: D o not add to previous draw Performed By: #### 5 0608 ####[facility] Hemoglobin (Bld) [Mass/Vol] 8.1 g/dL Low 13.0-17.0 [facility] Comment on above: Order Comment: No: D o not add to previous draw Performed By: #### 5 0608 ####[place] [address] [address] MCH (RBC) [Entitic mass] 27.6 pg Normal 27.0-33.0 [facility] Comment on above: Order Comment: No: D o not add to previous draw Performed By: #### 5 0608 ####[place] [address] [address] MCHC (RBC) [Mass/Vol] 29.8 g/dL Low 32.0-35.0 [facility] Comment on above: Order Comment: No: D o not add to previous draw Performed By: #### 5 0608 ####[facility] MCV (RBC) [Entitic vol] 92.8 fL Normal 82.0-98.0 [facility] Comment on above: Order Comment: No: D o not add to previous draw Performed By: #### 5 0608 ####[address] Nucleated RBC/100 WBC (Bld) [Ratio] 0 % Normal 0-0 [facility] Comment on above: Order Comment: No: D o not add to previous draw Performed By: #### 5 0608 ####[facility] PLAT CNT 329 10*3/uL Normal 150-400 [facility] Comment on above: Order Comment: No: D o not add to previous draw Performed By: #### 5 0608 ####[facility] RBC (Bld) [#/Vol] 2.93 10*6/uL Low 4.20-5.70 [facility] Comment on above: Order Comment: No: D o not add to previous draw Performed By: #### 5 0608 ####[place] [address] WBC (Bld) [#/Vol] 6.21 10*3/uL Normal 4.00-10.60 [facility] Comment on above: Order Comment: No: D o not add to previous draw Performed By: #### 5 0608 ####[facility] MAGNESIUM BLOODon 05-21-2021 Magnesium [Mass/Vol] 2.0 mg/dL Normal 1.9-2.7 [facility] Comment on above: Order Comment: No: D o not add to previous draw Performed By: #### 1 0070, 52714, 01785 ####[facility] Operative Reporton 1 Operative Report Normal [facility] PHOSPHORUS BLOODon 1 Phosphate [Mass/Vol] 4.0 mg/dL Normal 2.5-5.0 [facility] Comment on above: Order Comment: No: D o not add to previous draw Performed By: #### 1 0070, 87517, 65125 ####[facility] [facility] [place] [address], [facility] POC GLUCOSE LABon 05-21-2021 Glucose [Mass/Vol] 143 mg/dL High 70-100 [facility] Comment on above: Performed By: #### 8 5499 ####[facility] [place] [address], [place] Glucose [Mass/Vol] 123 mg/dL High 70-100 [facility] Comment on above: Performed By: #### 8 5499 ####[facility] [place] [address], [place] Glucose [Mass/Vol] 128 mg/dL High 70-100 [facility] Comment on above: Performed By: #### 8 5499 ####[facility] [facility] [place] [address], [place] Glucose [Mass/Vol] 158 mg/dL High 70-100 [facility] Comment on above: Performed By: #### 8 5499 ####[facility] [facility] [place] [address], [facility] PORTABLE CHEST 1 VIEWon 04-25 PORTABLE CHEST 1 VIEW Normal [facility] Comment on above: Order Comment: evalu ate for Atelectasis PROTHROMBIN TIMEon INR Coag (PPP) [Relative time] 1.12 {INR} Normal 0.91-1.16 [facility] Comment on above: Order [...] OF ACTION, CLINICALEFFECTIVENESS, AND OPTIMAL THERAPEUTIC RANGE. [id number]. Performed By: #### 5 6101 ####[facility] [facility].[address] PT Coag (PPP) [Time] 14.4 s Normal 12.3-14.8 [facility] Comment on above: Order Comment: No: D o not add to previous draw Result Comment: ALL RESULTS MUST BE INTERPRETED WITH RESPECT TO BLOOD DRAWING ARTIFACTOR DILUTION ERROR OF ANTICOAGULANT AT THE TIME OF SAMPLING. Performed By: #### 5 6101 ####[facility] [facility].[address] BASIC METABOLIC PANELon 09-2 Calcium [Mass/Vol] 8.8 mg/dL Normal 8.6-10.[address] [facility] Comment on above: Order Comment: No: D o not add to previous draw Performed By: #### 1 0070, 66284, 76822 ####[facility]3000 [facility].[address] Chloride [Moles/Vol] 96 mmol/L Low 98-107 [facility] Comment on above: Order Comment: No: D o not add to previous draw Performed By: #### 1 0070, 21778, 98270 ####[facility] [facility] [place] [address], [facility] CO2 [Moles/Vol] 33 mmol/L High 21-31 The [facility] Comment on above: Order Comment: No: D o not add to previous draw Performed By: #### 1 0, 91447, 53237 ####[facility] [place] [address], [facility] Creatinine [Mass/Vol] 0.90 mg/dL Normal 0.70-1.30 [facility] Comment on above: Order Comment: No: D o not add to previous draw Performed By: #### 1 0, 06768, 82862 ####[facility] [place] [address], [facility] GFR/1.73 sq M.predicted among blacks MDRD (S/P/Bld) [Vol rate/Area] mL/min/{1.73_m2} Normal >60 [facility] Comment on above: Order Comment: No: D o not add to previous draw Result Comment: Calc ulation may not be valid for patients over 70 years Performed By: #### 1 0, 94063, 66028 ####[facility] [facility] [place] [address], [facility] GFR/1.73 sq M.predicted among non-blacks MDRD (S/P/Bld) [Vol rate/Area] mL/min/{1.73_m2} Normal >60 [facility] Comment on above: Order Comment: No: D o not add to previous draw Result Comment: Calc ulation may not be valid for patients over 70 years Performed By: #### 1 0, 79053, 23910 ####[facility] [facility] [place] [address], [place] Glucose [Mass/Vol] 113 mg/dL High 70-100 [facility] Comment on above: Order Comment: No: D o not add to previous draw Performed By: #### 1 0, 90228, 90796 ####[facility] [place] [address], [place] Potassium [Moles/Vol] 3.6 mmol/L Normal 3.5-5.1 [facility] Comment on above: Order Comment: No: D o not add to previous draw Performed By: #### 1 0070, 75485, 42031 ####[facility] [place] [address], [facility] Sodium [Moles/Vol] 135 mmol/L Low 136-145 [facility] Comment on above: Order Comment: No: D o not add to previous draw Performed By: #### 1 0070, 73815, 33358 ####[facility] [facility] [place] [address], [facility] Urea nitrogen [Mass/Vol] 15 mg/dL Normal 7-25 [facility] Comment on above: Order Comment: No: D o not add to previous draw Performed By: #### 1 0, 82223, 93580 ####[facility] [facility].[address] CBC COMPLETE BLOOD COUNTon 05-20-2021 Erythrocyte distribution width (RBC) [Ratio] 14.1 % Normal 11.5-15.0 [facility] Comment on above: Order Comment: No: D o not add to previous draw Performed By: #### 5 0608 ####[facility] [facility] [place] [address], [facility] Hematocrit (Bld) [Volume fraction] 28.9 % Low 39.0-50.0 [facility] Comment on above: Order Comment: No: D o not add to previous draw Performed By: #### 5 0608 ####[facility] [facility] [place] [address], [facility] Hemoglobin (Bld) [Mass/Vol] 8.9 g/dL Low 13.0-17.0 [facility] Comment on above: Order Comment: No: D o not add to previous draw Performed By: #### 5 0608 ####[facility] [place] [address], [facility] MCH (RBC) [Entitic mass] 28.3 pg Normal 27.0-33.0 [facility] Comment on above: Order Comment: No: D o not add to previous draw Performed By: #### 5 0608 ####[facility] MCHC (RBC) [Mass/Vol] 30.8 g/dL Low 32.0-35.0 [facility] Comment on above: Order Comment: No: D o not add to previous draw Performed By: #### 5 0608 ####[facility] [facility] [place] [address], [facility] MCV (RBC) [Entitic vol] 92.0 fL Normal 82.0-98.0 [facility] Comment on above: Order Comment: No: D o not add to previous draw Performed By: #### 5 0608 ####[facility] [facility].[address] Nucleated RBC/100 WBC (Bld) [Ratio] 0 % Normal 0-0 [facility] Comment on above: Order Comment: No: D o not add to previous draw Performed By: #### 5 0608 ####[facility] [facility] [place] [address], [facility] PLAT CNT 339 10*3/uL Normal 150-400 The [facility] Comment on above: Order Comment: No: D o not add to previous draw Performed By: #### 5 0608 ####[facility] [facility] [place] [address], [facility] RBC (Bld) [#/Vol] 3.14 10*6/uL Low 4.20-5.70 The [facility] Comment on above: Order Comment: No: D o not add to previous draw Performed By: #### 5 0608 ####[facility] [place] [address], [facility] WBC (Bld) [#/Vol] 6.69 10*3/uL Normal 4.00-10.60 The [facility] Comment on above: Order Comment: No: D o not add to previous draw Performed By: #### 5 0608 ####[facility] [facility].[address] Erythrocyte distribution width (RBC) [Ratio] 14.1 % Normal 11.5-15.0 [facility] Comment on above: Order Comment: No: D o not add to previous draw Performed By: #### 5 0608 ####[facility] [facility].[address] Hematocrit (Bld) [Volume fraction] 29.5 % Low 39.0-50.0 [facility] Comment on above: Order Comment: No: D o not add to previous draw Performed By: #### 5 0608 ####[facility] [facility].[address] Hemoglobin (Bld) [Mass/Vol] 9.3 g/dL Low 13.0-17.0 [facility] Comment on above: Order Comment: No: D o not add to previous draw Performed By: #### 5 0608 ####[facility] [facility].[address] MCH (RBC) [Entitic mass] 28.2 pg Normal 27.0-33.0 [facility] Comment on above: Order Comment: No: D o not add to previous draw Performed By: #### 5 0608 ####[facility] [facility] [place] [address], [facility] MCHC (RBC) [Mass/Vol] 31.5 g/dL Low 32.0-35.0 [facility] Comment on above: Order Comment: No: D o not add to previous draw Performed By: #### 5 0608 ####[facility] MCV (RBC) [Entitic vol] 89.4 fL Normal 82.0-98.0 [facility] Comment on above: Order Comment: No: D o not add to previous draw Performed By: #### 5 0608 ####[facility] Nucleated RBC/100 WBC (Bld) [Ratio] 0 % Normal 0-0 [facility] Comment on above: Order Comment: No: D o not add to previous draw Performed By: #### 5 0608 ####[facility] [facility] [place] [address], [facility] PLAT CNT 338 10*3/uL Normal 150-400 The [facility] Comment on above: Order Comment: No: D o not add to previous draw Performed By: #### 5 0608 ####[facility] [facility].[address] RBC (Bld) [#/Vol] 3.30 10*6/uL Low 4.20-5.70 The [facility] Comment on above: Order Comment: No: D o not add to previous draw Performed By: #### 5 0608 ####[facility] [facility] [place] [address], [facility] WBC (Bld) [#/Vol] 6.66 10*3/uL Normal 4.00-10.60 The [facility] Comment on above: Order Comment: No: D o not add to previous draw Performed By: #### 5 0608 ####[facility] [facility] [place] [address], [facility] MAGNESIUM BLOODon 05-20-2021 Magnesium [Mass/Vol] 1.9 mg/dL Normal 1.9-2.7 [facility] Comment on above: Order Comment: No: D o not add to previous draw Performed By: #### 1 0070, 48172, 24455 ####[facility] [place] [address], [place] PHOSPHORUS BLOODon 1 Phosphate [Mass/Vol] 3.7 mg/dL Normal 2.5-5.0 [facility] Comment on above: Order Comment: No: D o not add to previous draw Performed By: #### 1 0070, 61056, 40475 ####[facility] [place] [address], [place] POC GLUCOSE LABon 05-20-2021 Glucose [Mass/Vol] 130 mg/dL High 70-100 [facility] Comment on above: Performed By: #### 8 5499 ####[facility] [place] [address], [place] Glucose [Mass/Vol] 119 mg/dL High 70-100 [facility] Comment on above: Performed By: #### 8 5499 ####[facility] [place] [address], [place] Glucose [Mass/Vol] 118 mg/dL High 70-100 [facility] Comment on above: Performed By: #### 8 5499 ####[facility] [place] [address], [place] Glucose [Mass/Vol] 118 mg/dL High 70-100 The [facility] Comment on above: Performed By: #### 8 5499 ####[facility] [place] [address], [place] Glucose [Mass/Vol] 119 mg/dL High 70-100 The [facility] Comment on above: Performed By: #### 8 5499 ####[facility] [place] [address], [place] PROTHROMBIN TIMEon 1 INR Coag (PPP) [Relative time] 1.09 {INR} Normal 0.91-1.16 [facility] Comment on above: Order [...] OF ACTION, CLINICALEFFECTIVENESS, AND OPTIMAL THERAPEUTIC RANGE. [id number]. Performed By: #### 5 6101 ####[facility] [facility] [place] [address], [facility] PT Coag (PPP) [Time] 14.1 s Normal 12.3-14.8 [facility] Comment on above: Order Comment: No: D o not add to previous draw Result Comment: ALL RESULTS MUST BE INTERPRETED WITH RESPECT TO BLOOD DRAWING ARTIFACTOR DILUTION ERROR OF ANTICOAGULANT AT THE TIME OF SAMPLING. Performed By: #### 5 6101 ####[facility] [place] [address], [facility] TYPE AND SCREENon 05-20-2021 ABO INTERPRETATION O Normal [facility] Comment on above: Performed By: #### 6 2586 ####[facility] [place] [address], [facility] RH INTERPRETATION Positive Normal The [facility] Comment on above: Performed By: #### 6 6036 ####[facility] *MRSA/MSSA DNA NASALon 05-19 *MRSA/MSSA DNA NASAL Clinical Report: (D) Specimen: NASAL SWAB Collected: 05/19/2021 10:27 Status: Final Last Updated: 05/19/2021 15:02 MSSA DNA (Final) Negative MRSA DNA (Final) Negative Normal [facility] Comment on above: Performed By: #### 3 1595 ####[facility] CBC W/DIFFon 05-19-2021 ABS IMM GRANS 0.0 10*3/uL Normal 0.0-0.2 The [facility] Comment on above: Order Comment: No: D o not add to previous draw Performed By: #### 5 0103 ####[facility] ABS NEUTROPHILS 4.3 10*3/uL Normal 1.6-7.6 The [facility] Comment on above: Order Comment: No: D o not add to previous draw Performed By: #### 5 0103 ####[facility] [place] [address], [facility] Basophils (Bld) [#/Vol] 0.0 10*3/uL Normal 0.0-0.2 [facility] Comment on above: Order Comment: No: D o not add to previous draw Performed By: #### 5 0103 ####[facility] [place] [address], [facility] Basophils/100 WBC (Bld) 0.5 % Normal 0.0-1.0 [facility] Comment on above: Order Comment: No: D o not add to previous draw Performed By: #### 5 0103 ####[facility] [place] [address], [place] Eosinophils (Bld) [#/Vol] 0.2 10*3/uL Normal 0.0-0.5 [facility] Comment on above: Order Comment: No: D o not add to previous draw Performed By: #### 5 0103 ####[facility] Eosinophils/100 WBC (Bld) 3.1 % Normal 0.0-6.0 [facility] Comment on above: Order Comment: No: D o not add to previous draw Performed By: #### 5 0103 ####[facility] Erythrocyte distribution width (RBC) [Ratio] 14.2 % Normal 11.5-15.0 [facility] Comment on above: Order Comment: No: D o not add to previous draw Performed By: #### 5 0103 ####[facility] [facility].[address] Hematocrit (Bld) [Volume fraction] 29.0 % Low 39.0-50.0 [facility] Comment on above: Order Comment: No: D o not add to previous draw Performed By: #### 5 0103 ####[facility] [facility].[address] Hemoglobin (Bld) [Mass/Vol] 9.2 g/dL Low 13.0-17.0 [facility] Comment on above: Order Comment: No: D o not add to previous draw Performed By: #### 5 0103 ####[facility] [facility].[address] IMMATURE GRANS 0.5 % Normal 0.0-1.0 The [facility] Comment on above: Order Comment: No: D o not add to previous draw Performed By: #### 5 0103 ####[facility] [facility].[address] Lymphocytes (Bld) [#/Vol] 1.0 10*3/uL Low 1.2-4.0 [facility] Comment on above: Order Comment: No: D o not add to previous draw Performed By: #### 5 0103 ####[facility] Lymphocytes/100 WBC (Bld) 15.9 % Low 20.0-45.0 [facility] Comment on above: Order Comment: No: D o not add to previous draw Performed By: #### 5 0103 ####[facility] MCH (RBC) [Entitic mass] 28.5 pg Normal 27.0-33.0 [facility] Comment on above: Order Comment: No: D o not add to previous draw Performed By: #### 5 3 ####[facility] MCHC (RBC) [Mass/Vol] 31.7 g/dL Low 32.0-35.0 [facility] Comment on above: Order Comment: No: D o not add to previous draw Performed By: #### 5 0103 ####[facility] MCV (RBC) [Entitic vol] 89.8 fL Normal 82.0-98.0 [facility] Comment on above: Order Comment: No: D o not add to previous draw Performed By: #### 5 0103 ####[facility] [place] [address], [facility] Monocytes (Bld) [#/Vol] 0.6 10*3/uL Normal 0.1-1.0 [facility] Comment on above: Order Comment: No: D o not add to previous draw Performed By: #### 5 3 ####[facility] [place] [address], [facility] MONOS 10.2 % Normal 5.0-12.0 [facility] Comment on above: Order Comment: No: D o not add to previous draw Performed By: #### 5 0103 ####[facility] [id number], [facility] Neutrophils/100 WBC (Bld) 69.8 % Normal 40.0-72.0 [facility] Comment on above: Order Comment: No: D o not add to previous draw Performed By: #### 5 0103 ####[facility] [facility] [place] [address], [facility] Nucleated RBC/100 WBC (Bld) [Ratio] 0 % Normal 0-0 [facility] Comment on above: Order Comment: No: D o not add to previous draw Performed By: #### 5 0103 ####[facility] [facility] [place] [address], [facility] PLAT CNT 294 10*3/uL Normal 150-400 The [facility] Comment on above: Order Comment: No: D o not add to previous draw Performed By: #### 5 0103 ####[facility] [facility] [place] [address], [facility] RBC (Bld) [#/Vol] 3.23 10*6/uL Low 4.20-5.70 The [facility] Comment on above: Order Comment: No: D o not add to previous draw Performed By: #### 5 0103 ####[facility] [facility].[place] [id number], [facility] WBC (Bld) [#/Vol] 6.09 10*3/uL Normal 4.00-10.60 The [facility] Comment on above: Order Comment: No: D o not add to previous draw Performed By: #### 5 0103 ####[facility] [address], [place] COMP METABOLIC PANELon 05-19 Albumin [Mass/Vol] 2.8 g/dL Low 3.5-5.7 The [facility] Comment on above: Order Comment: No: D o not add to previous draw Performed By: #### 4 1000, 85788, 52713 ####[facility] [place] [address], [facility] ALKALINE PHOSPH 59 IU/L Normal 34-104 The [facility] Comment on above: Order Comment: No: D o not add to previous draw Performed By: #### 4 1000, 54469, 36515 ####[facility] [address], [facility] ALT [Catalytic activity/Vol] 9 U/L Normal 7-52 [facility] Comment on above: Order Comment: No: D o not add to previous draw Performed By: #### 4 1000, 09552, 91837 ####[facility] [place] [address], [facility] AST [Catalytic activity/Vol] 20 U/L Normal 13-39 [facility] Comment on above: Order Comment: No: D o not add to previous draw Performed By: #### 4 1000, 23962, 22007 ####[facility] [address], [facility] Bilirubin [Mass/Vol] 0.6 mg/dL Normal 0.3-1.0 [facility] Comment on above: Order Comment: No: D o not add to previous draw Performed By: #### 4 1000, 71685, 87921 ####[facility] [address], [facility] Calcium [Mass/Vol] 8.5 mg/dL Low 8.6-10.3 The [facility] Comment on above: Order Comment: No: D o not add to previous draw Performed By: #### 4 1000, 60571, 39532 ####[facility] [place] [address], [place] Chloride [Moles/Vol] 98 mmol/L Normal 98-107 [facility] Comment on above: Order Comment: No: D o not add to previous draw Performed By: #### 4 1000, 87368, 21881 ####[facility] [place] [address], [place] CO2 [Moles/Vol] 31 mmol/L Normal 21-31 The [facility] Comment on above: Order Comment: No: D o not add to previous draw Performed By: #### 4 1000, 01326, 26803 ####[facility] [place] [address], [facility] Creatinine [Mass/Vol] 0.74 mg/dL Normal 0.70-1.30 [facility] Comment on above: Order Comment: No: D o not add to previous draw Performed By: #### 4 1000, 80359, 28730 ####[facility] [place] [address], [place] GFR/1.73 sq M.predicted among blacks MDRD (S/P/Bld) [Vol rate/Area] mL/min/{1.73_m2} Normal >60 [facility] Comment on above: Order Comment: No: D o not add to previous draw Result Comment: Calc ulation may not be valid for patients over 70 years Performed By: #### 4 1000, 36741, 55505 ####[facility] [place] [address], [place] GFR/1.73 sq M.predicted among non-blacks MDRD (S/P/Bld) [Vol rate/Area] mL/min/{1.73_m2} Normal >60 [facility] Comment on above: Order Comment: No: D o not add to previous draw Result Comment: Calc ulation may not be valid for patients over 70 years Performed By: #### 4 1000, 51122, 91796 ####[facility] [place] [address], [place] Glucose [Mass/Vol] 143 mg/dL High 70-100 The [facility] Comment on above: Order Comment: No: D o not add to previous draw Performed By: #### 4 1000, 28698, 66642 ####[facility] [place] [address], [place] Potassium [Moles/Vol] 3.4 mmol/L Low 3.5-5.1 [facility] Comment on above: Order Comment: No: D o not add to previous draw Performed By: #### 4 1000, 07996, 53910 ####[facility] [address], [facility] Protein [Mass/Vol] 6.7 g/dL Normal 6.0-8.3 The [facility] Comment on above: Order Comment: No: D o not add to previous draw Performed By: #### 4 1000, 93776, 31418 ####[facility] [place] [address], [facility] Sodium [Moles/Vol] 134 mmol/L Low 136-145 The [facility] Comment on above: Order Comment: No: D o not add to previous draw Performed By: #### 4 1000, 02541, 71358 ####[facility] [address], [place] Urea nitrogen [Mass/Vol] 14 mg/dL Normal 7-25 [facility] Comment on above: Order Comment: No: D o not add to previous draw Performed By: #### 4 1000, 58272, 14457 ####[facility] [place] [address], [place] MAGNESIUM BLOODon 05-19-2021 Magnesium [Mass/Vol] 1.9 mg/dL Normal 1.9-2.7 [facility] Comment on above: Order Comment: No: D o not add to previous draw Performed By: #### 4 1000, 13246, 20805 ####[facility] [place] [address], [place] PHOSPHORUS BLOODon Phosphate [Mass/Vol] 3.1 mg/dL Normal 2.5-5.0 [facility] Comment on above: Order Comment: No: D o not add to previous draw Performed By: #### 4 1000, 00483, 91514 ####[facility] [place] [address], [place] POC GLUCOSE LABon 05-19-2021 Glucose [Mass/Vol] 124 mg/dL High 70-100 The [facility] Comment on above: Performed By: #### 8 5499 ####[facility] [place] [address], [place] Glucose [Mass/Vol] 132 mg/dL High 70-100 The [facility] Comment on above: Performed By: #### 8 5499 ####[facility] [place] [address], [place] Glucose [Mass/Vol] 153 mg/dL High 70-100 The [facility] Comment on above: Performed By: #### 8 5499 ####[facility] [place] [address], [place] Glucose [Mass/Vol] 133 mg/dL High 70-100 The [facility] Comment on above: Performed By: #### 8 5499 ####[facility] [place] [address], [place] POC SARS COV2 ANTIGEN NEGATI VEon 05-19-2021 POC SARS COV2 ANTIGEN NEG Negative Normal NEGATIVE [facility] Comment on above: Result Comment: Nega [...] of clinicalsigns and symptoms consistent with COVID-19.The [employer] COW COVID-19 Ag Card is a lateral flow immunoassay intended forthe qualitative detection of nucleocapsid protein antigen [id number] in direct nasal swabs from individuals within [...] Certificate ofAccreditation. Performed By: #### 3 1976 ####[address] VANCOMYCIN TIMEDon VANCOMYCIN TIMED 16.3 mcg/mL Normal [facility] Comment on above: Performed By: #### 3 0953 ####[address] CBC W/DIFFon 05-18-2021 ABS IMM GRANS 0.0 10*3/uL Normal 0.0-0.2 The [facility] Comment on above: Order Comment: No: D o not add to previous draw Performed By: #### 5 0103 ####[place] [address] ABS NEUTROPHILS 5.1 10*3/uL Normal 1.6-7.6 The [facility] Comment on above: Order Comment: No: D o not add to previous draw Performed By: #### 5 0103 ####[address] Basophils (Bld) [#/Vol] 0.0 10*3/uL Normal 0.0-0.2 The [facility] Comment on above: Order Comment: No: D o not add to previous draw Performed By: #### 5 0103 ####[facility] [place] [address], [facility] Basophils/100 WBC (Bld) 0.4 % Normal 0.0-1.0 The [facility] Comment on above: Order Comment: No: D o not add to previous draw Performed By: #### 5 0103 ####[facility] [facility] [place] [address], [facility] Eosinophils (Bld) [#/Vol] 0.2 10*3/uL Normal 0.0-0.5 The [facility] Comment on above: Order Comment: No: D o not add to previous draw Performed By: #### 5 0103 ####[facility] [place] [address], [facility] Eosinophils/100 WBC (Bld) 2.6 % Normal 0.0-6.0 The [facility] Comment on above: Order Comment: No: D o not add to previous draw Performed By: #### 5 0103 ####[facility] [facility].[address] Erythrocyte distribution width (RBC) [Ratio] 14.1 % Normal 11.5-15.0 The [facility] Comment on above: Order Comment: No: D o not add to previous draw Performed By: #### 5 0103 ####[facility] [place] [address], [facility] Hematocrit (Bld) [Volume fraction] 27.5 % Low 39.0-50.0 The [facility] Comment on above: Order Comment: No: D o not add to previous draw Performed By: #### 5 0103 ####[facility] Hemoglobin (Bld) [Mass/Vol] 8.6 g/dL Low 13.0-17.0 The [facility] Comment on above: Order Comment: No: D o not add to previous draw Performed By: #### 5 0103 ####[facility] [place] [address], [facility] IMMATURE GRANS 0.1 % Normal 0.0-1.0 The [facility] Comment on above: Order Comment: No: D o not add to previous draw Performed By: #### 5 0103 ####[address] Lymphocytes (Bld) [#/Vol] 1.3 10*3/uL Normal 1.2-4.0 The [facility] Comment on above: Order Comment: No: D o not add to previous draw Performed By: #### 5 0103 ####[facility] Lymphocytes/100 WBC (Bld) 18.0 % Low 20.0-45.0 The [facility] Comment on above: Order Comment: No: D o not add to previous draw Performed By: #### 5 0103 ####[address] MCH (RBC) [Entitic mass] 28.7 pg Normal 27.0-33.0 The [facility] Comment on above: Order Comment: No: D o not add to previous draw Performed By: #### 5 0103 ####[facility] [place] [address], [facility] MCHC (RBC) [Mass/Vol] 31.3 g/dL Low 32.0-35.0 The [facility] Comment on above: Order Comment: No: D o not add to previous draw Performed By: #### 5 0103 ####[facility] [place], [place] [address], [place] [address], [place] MCV (RBC) [Entitic vol] 91.7 fL Normal 82.0-98.0 The [facility] Comment on above: Order Comment: No: D o not add to previous draw Performed By: #### 5 0103 ####[facility] [facility] [place] [address], [facility] Monocytes (Bld) [#/Vol] 0.7 10*3/uL Normal 0.1-1.0 [facility] Comment on above: Order Comment: No: D o not add to previous draw Performed By: #### 5 0103 ####[facility] MONOS 10.0 % Normal 5.0-12.0 The [facility] Comment on above: Order Comment: No: D o not add to previous draw Performed By: #### 5 3 ####[facility] [facility].[address] Neutrophils/100 WBC (Bld) 68.9 % Normal 40.0-72.0 The [facility] Comment on above: Order Comment: No: D o not add to previous draw Performed By: #### 5 3 ####[facility] [facility].[address] Nucleated RBC/100 WBC (Bld) [Ratio] 0 % Normal 0-0 The [facility] Comment on above: Order Comment: No: D o not add to previous draw Performed By: #### 5 0103 ####[facility] [facility] [place] [address], [facility] PLAT CNT 288 10*3/uL Normal 150-400 The [facility] Comment on above: Order Comment: No: D o not add to previous draw Performed By: #### 5 3 ####[facility] [facility] [place] [address], [place] RBC (Bld) [#/Vol] 3.00 10*6/uL Low 4.20-5.70 The [facility] Comment on above: Order Comment: No: D o not add to previous draw Performed By: #### 5 0103 ####[facility] [place] [address], [facility] WBC (Bld) [#/Vol] 7.40 10*3/uL Normal 4.00-10.60 The [facility] Comment on above: Order Comment: No: D o not add to previous draw Performed By: #### 5 0103 ####[facility] [facility].[address] COMP METABOLIC PANELon 05-18 Albumin [Mass/Vol] 2.7 g/dL Low 3.5-5.[address] [facility] Comment on above: Order Comment: No: D o not add to previous draw Performed By: #### 4 1000, 82674, 89849, 38274 ####[facility] [facility].[address] ALKALINE PHOSPH 62 IU/L Normal 34-104 The [facility] Comment on above: Order Comment: No: D o not add to previous draw Performed By: #### 4 1000, 97409, 55482, 67399 ####[facility] [facility].[address] ALT [Catalytic activity/Vol] 11 U/L Normal 7-52 The [facility] Comment on above: Order Comment: No: D o not add to previous draw Performed By: #### 4 1000, 05547, 52120, 82474 ####[facility] [place] [address], [facility] AST [Catalytic activity/Vol] 31 U/L Normal 13-39 The [facility] Comment on above: Order Comment: No: D o not add to previous draw Performed By: #### 4 1000, 92911, 95012, 56192 ####[facility] [place] [address], [place] Bilirubin [Mass/Vol] 0.8 mg/dL Normal 0.3-1.0 The [facility] Comment on above: Order Comment: No: D o not add to previous draw Performed By: #### 4 1000, 72465, 37592, 31448 ####[facility] [place] [address], [place] Calcium [Mass/Vol] 8.0 mg/dL Low 8.6-10.[address] [facility] Comment on above: Order Comment: No: D o not add to previous draw Performed By: #### 4 1000, 25531, 25389, 51974 ####[facility] [place] [address], [place] Chloride [Moles/Vol] 98 mmol/L Normal 98-107 The [facility] Comment on above: Order Comment: No: D o not add to previous draw Performed By: #### 4 1000, 44792, 71567, 92654 ####[facility] [place] [address], [place] CO2 [Moles/Vol] 33 mmol/L High 21-31 [facility] Comment on above: Order Comment: No: D o not add to previous draw Performed By: #### 4 1000, 76027, 22585, 01677 ####[facility] [place] [address], [place] Creatinine [Mass/Vol] 0.89 mg/dL Normal 0.70-1.30 The [facility] Comment on above: Order Comment: No: D o not add to previous draw Performed By: #### 4 1000, 44955, 39531, 00149 ####[facility] [place] [address], [place] GFR/1.73 sq M.predicted among blacks MDRD (S/P/Bld) [Vol rate/Area] mL/min/{1.73_m2} Normal >60 The [facility] Comment on above: Order Comment: No: D o not add to previous draw Result Comment: Calc ulation may not be valid for patients over 70 years Performed By: #### 4 1000, 80165, 29229, 92754 ####[facility] [place] [address], [facility] GFR/1.73 sq M.predicted among non-blacks MDRD (S/P/Bld) [Vol rate/Area] mL/min/{1.73_m2} Normal >60 The [facility] Comment on above: Order Comment: No: D o not add to previous draw Result Comment: Calc ulation may not be valid for patients over 70 years Performed By: #### 4 1000, 79911, 55564, 87713 ####[facility] [place] [address], [facility] Glucose [Mass/Vol] 108 mg/dL High 70-100 [facility] Comment on above: Order Comment: No: D o not add to previous draw Performed By: #### 4 1000, 96729, 13581, 03741 ####[facility] [place] [address], [facility] Potassium [Moles/Vol] 3.7 mmol/L Normal 3.5-5.1 [facility] Comment on above: Order Comment: No: D o not add to previous draw Performed By: #### 4 1000, 60085, 79616, 98146 ####[facility] [place] [address], [place] Protein [Mass/Vol] 6.6 g/dL Normal 6.0-8.3 The [facility] Comment on above: Order Comment: No: D o not add to previous draw Performed By: #### 4 1000, 08375, 07818, 65691 ####[facility] [place] [address], [facility] Sodium [Moles/Vol] 136 mmol/L Normal 136-145 [facility] Comment on above: Order Comment: No: D o not add to previous draw Performed By: #### 4 1000, 24608, 85243, 41903 ####[facility] [place] [address], [facility] Urea nitrogen [Mass/Vol] 16 mg/dL Normal 7-25 The [facility] Comment on above: Order Comment: No: D o not add to previous draw Performed By: #### 4 1000, 99342, 35633, 30483 ####[facility] [place] [address], [facility] MAGNESIUM BLOODon 05-18-2021 Magnesium [Mass/Vol] 1.9 mg/dL Normal 1.9-2.7 The [facility] Comment on above: Order Comment: No: D o not add to previous draw Performed By: #### 4 1000, 69903, 88798, 18212 ####[facility] [place] [address], [facility] PHOSPHORUS BLOODon Phosphate [Mass/Vol] 4.2 mg/dL Normal 2.5-5.0 The [facility] Comment on above: Order Comment: No: D o not add to previous draw Performed By: #### 4 1000, 92073, 02075, 36387 ####[facility] [place] [address], [facility] POC GLUCOSE LABon 05-18-2021 Glucose [Mass/Vol] 152 mg/dL High 70-100 [facility] Comment on above: Performed By: #### 8 5499 ####[facility] [place] [address], [facility] Glucose [Mass/Vol] 140 mg/dL High 70-100 [facility] Comment on above: Performed By: #### 8 6529 ####[facility] [facility].[address] Glucose [Mass/Vol] 202 mg/dL High 70-100 The [facility] Comment on above: Performed By: #### 8 5499 ####[facility] [facility] [place] [address], [facility] Glucose [Mass/Vol] 121 mg/dL High 70-100 The [facility] Comment on above: Performed By: #### 8 5499 ####[facility] PORTABLE CHEST 1 VIEWon 04-25 PORTABLE CHEST 1 VIEW Normal The [facility] Comment on above: Order Comment: EValu ate for Effusion VANCOMYCIN TIMEDon VANCOMYCIN TIMED 10.2 mcg/mL Normal The [facility] Comment on above: Performed By: #### 4 1000, 81157, 84097, 06464 ####[facility] CBC W/DIFFon 05-17-2021 ABS IMM GRANS 0.0 10*3/uL Normal 0.0-0.2 The [facility] Comment on above: Order Comment: No: D o not add to previous draw Performed By: #### 5 0103 ####[facility] ABS NEUTROPHILS 3.6 10*3/uL Normal 1.6-7.6 The [facility] Comment on above: Order Comment: No: D o not add to previous draw Performed By: #### 5 0103 ####[facility] Basophils (Bld) [#/Vol] 0.1 10*3/uL Normal 0.0-0.2 [facility] Comment on above: Order Comment: No: D o not add to previous draw Performed By: #### 5 0103 ####[facility] [facility] [place] [address], [facility] Basophils/100 WBC (Bld) 0.9 % Normal 0.0-1.0 The [facility] Comment on above: Order Comment: No: D o not add to previous draw Performed By: #### 5 0103 ####[facility] [facility] [place] [address], [facility] Eosinophils (Bld) [#/Vol] 0.1 10*3/uL Normal 0.0-0.5 The [facility] Comment on above: Order Comment: No: D o not add to previous draw Performed By: #### 5 0103 ####[facility] [facility] [place] [address], [facility] Eosinophils/100 WBC (Bld) 0.9 % Normal 0.0-6.0 [facility] Comment on above: Order Comment: No: D o not add to previous draw Performed By: #### 5 3 ####[facility] [facility].[address] Erythrocyte distribution width (RBC) [Ratio] 14.6 % Normal 11.5-15.0 The [facility] Comment on above: Order Comment: No: D o not add to previous draw Performed By: #### 5 3 ####[facility] [facility] [place] [address], [facility] Hematocrit (Bld) [Volume fraction] 27.7 % Low 39.0-50.0 [facility] Comment on above: Order Comment: No: D o not add to previous draw Performed By: #### 5 0103 ####[facility] [facility] [place] [address], [facility] Hemoglobin (Bld) [Mass/Vol] 8.5 g/dL Low 13.0-17.0 [facility] Comment on above: Order Comment: No: D o not add to previous draw Performed By: #### 5 0103 ####[facility] [facility].[address] IMMATURE GRANS 0.5 % Normal 0.0-1.0 The [facility] Comment on above: Order Comment: No: D o not add to previous draw Performed By: #### 5 0103 ####[facility] [facility].[address] Lymphocytes (Bld) [#/Vol] 1.4 10*3/uL Normal 1.2-4.0 [facility] Comment on above: Order Comment: No: D o not add to previous draw Performed By: #### 5 0103 ####[facility] [place] [address] Lymphocytes/100 WBC (Bld) 23.3 % Normal 20.0-45.0 [facility] Comment on above: Order Comment: No: D o not add to previous draw Performed By: #### 5 0103 ####[facility] [place] [address] MCH (RBC) [Entitic mass] 28.4 pg Normal 27.0-33.0 [facility] Comment on above: Order Comment: No: D o not add to previous draw Performed By: #### 5 0103 ####[facility] [place] [address] MCHC (RBC) [Mass/Vol] 30.7 g/dL Low 32.0-35.0 [facility] Comment on above: Order Comment: No: D o not add to previous draw Performed By: #### 5 0103 ####[facility] [place] [address] MCV (RBC) [Entitic vol] 92.6 fL Normal 82.0-98.0 [facility] Comment on above: Order Comment: No: D o not add to previous draw Performed By: #### 5 0103 ####[facility] [place] [address], [facility] Monocytes (Bld) [#/Vol] 0.7 10*3/uL Normal 0.1-1.0 [facility] Comment on above: Order Comment: No: D o not add to previous draw Performed By: #### 5 0103 ####[facility] [facility] [place] [address], [facility] MONOS 11.7 % Normal 5.0-12.0 [facility] Comment on above: Order Comment: No: D o not add to previous draw Performed By: #### 5 0103 ####[facility] [facility] [place] [address], [facility] Neutrophils/100 WBC (Bld) 62.7 % Normal 40.0-72.0 [facility] Comment on above: Order Comment: No: D o not add to previous draw Performed By: #### 5 0103 ####[facility] [facility] [place] [address], [facility] Nucleated RBC/100 WBC (Bld) [Ratio] 0 % Normal 0-0 [facility] Comment on above: Order Comment: No: D o not add to previous draw Performed By: #### 5 3 ####[facility] [facility] [place] [address], [facility] PLAT CNT 325 10*3/uL Normal 150-400 The [facility] Comment on above: Order Comment: No: D o not add to previous draw Performed By: #### 5 0103 ####[facility] [facility] [place] [address], [facility] RBC (Bld) [#/Vol] 2.99 10*6/uL Low 4.20-5.70 The [facility] Comment on above: Order Comment: No: D o not add to previous draw Performed By: #### 5 0103 ####[facility] [place] [address], [facility] WBC (Bld) [#/Vol] 5.79 10*3/uL Normal 4.00-10.60 [facility] Comment on above: Order Comment: No: D o not add to previous draw Performed By: #### 5 0103 ####[facility] [place] [address], [facility] COMP METABOLIC PANELon 05-17 Albumin [Mass/Vol] 2.8 g/dL Low 3.5-5.[address] [facility] Comment on above: Order Comment: No: D o not add to previous draw Performed By: #### 4 1000, 48463, 53801 ####[facility] [facility] [place] [address], [facility] ALKALINE PHOSPH 55 IU/L Normal 34-104 [facility] Comment on above: Order Comment: No: D o not add to previous draw Performed By: #### 4 1000, 62647, 62447 ####[facility] [facility] [place] [address], [facility] ALT [Catalytic activity/Vol] 7 U/L Normal 7-52 [facility] Comment on above: Order Comment: No: D o not add to previous draw Performed By: #### 4 1000, 16644, 45413 ####[facility] [place] [address], [facility] AST [Catalytic activity/Vol] 11 U/L Low 13-39 [facility] Comment on above: Order Comment: No: D o not add to previous draw Performed By: #### 4 1000, 81152, 36468 ####[facility] [place] [address], [facility] Bilirubin [Mass/Vol] 0.6 mg/dL Normal 0.3-1.0 [facility] Comment on above: Order Comment: No: D o not add to previous draw Performed By: #### 4 1000, 03403, 23804 ####[facility] [id number], [facility] Calcium [Mass/Vol] 8.2 mg/dL Low 8.6-10.[address] [facility] Comment on above: Order Comment: No: D o not add to previous draw Performed By: #### 4 1000, 18494, 47249 ####[facility] [place] [address], [place] Chloride [Moles/Vol] 102 mmol/L Normal 98-107 [facility] Comment on above: Order Comment: No: D o not add to previous draw Performed By: #### 4 1000, 19964, 54300 ####[facility] [place] [address], [place] CO2 [Moles/Vol] 31 mmol/L Normal 21-31 [facility] Comment on above: Order Comment: No: D o not add to previous draw Performed By: #### 4 1000, 83486, 05924 ####[facility] [place] [address], [facility] Creatinine [Mass/Vol] 1.19 mg/dL Normal 0.70-1.30 [facility] Comment on above: Order Comment: No: D o not add to previous draw Performed By: #### 4 1000, 57286, 54201 ####[facility] [place] [address], [place] eGFR- non- 59 ml/min/1.73sq m Abnormal >60 The [facility] Comment on above: Order Comment: No: D o not add to previous draw Result Comment: Calc ulation may not be valid for patients over 70 years Performed By: #### 4 1000, 80101, 13270 ####[facility] [address], [place] GFR/1.73 sq M.predicted among blacks MDRD (S/P/Bld) [Vol rate/Area] mL/min/{1.73_m2} Normal >60 The [facility] Comment on above: Order Comment: No: D o not add to previous draw Result Comment: Calc ulation may not be valid for patients over 70 years Performed By: #### 4 1000, 67258, 19106 ####[facility] [place] [address], [place] Glucose [Mass/Vol] 99 mg/dL Normal 70-100 The [facility] Comment on above: Order Comment: No: D o not add to previous draw Performed By: #### 4 1000, 45223, 82707 ####[facility] [place] [address], [place] Potassium [Moles/Vol] 3.7 mmol/L Normal 3.5-5.1 [facility] Comment on above: Order Comment: No: D o not add to previous draw Performed By: #### 4 1000, 30571, 50402 ####[facility] [place] [address], [place] Protein [Mass/Vol] 6.6 g/dL Normal 6.0-8.3 The [facility] Comment on above: Order Comment: No: D o not add to previous draw Performed By: #### 4 1000, 31617, 89864 ####[facility] [place] [address], [place] Sodium [Moles/Vol] 138 mmol/L Normal 136-145 The [facility] Comment on above: Order Comment: No: D o not add to previous draw Performed By: #### 4 1000, 72748, 64392 ####[facility] [place] [address], [place] Urea nitrogen [Mass/Vol] 16 mg/dL Normal 7-25 [facility] Comment on above: Order Comment: No: D o not add to previous draw Performed By: #### 4 1000, 13086, 88686 ####[facility] [place] [address], [place] MAGNESIUM BLOODon 05-17-2021 Magnesium [Mass/Vol] 2.0 mg/dL Normal 1.9-2.7 [facility] Comment on above: Order Comment: No: D o not add to previous draw Performed By: #### 4 1000, 55752, 77564 ####[facility] [place] [address], [place] PHOSPHORUS BLOODon Phosphate [Mass/Vol] 4.6 mg/dL Normal 2.5-5.0 [facility] Comment on above: Order Comment: No: D o not add to previous draw Performed By: #### 4 1000, 20350, 05217 ####[facility] [place] [address], [place] POC GLUCOSE LABon 05-17-2021 Glucose [Mass/Vol] 139 mg/dL High 70-100 [facility] Comment on above: Performed By: #### 8 5499 ####[facility] [place] [address], [place] Glucose [Mass/Vol] 100 mg/dL Normal 70-100 [facility] Comment on above: Performed By: #### 8 5499 ####[facility] [place] [address], [place] Glucose [Mass/Vol] 122 mg/dL High 70-100 [facility] Comment on above: Performed By: #### 8 5499 ####[facility] [place] [address], [place] Glucose [Mass/Vol] 107 mg/dL High 70-100 [facility] Comment on above: Performed By: #### 8 5499 ####[facility] PORTABLE CHEST 1 VIEWon 04-25 PORTABLE CHEST 1 VIEW Normal The [facility] Comment on above: Order Comment: evalu ate for Atelectasis *ANAEROBIC CULTUREon 021 *ANAEROBIC CULTURE Clinical Report: (D) Specimen/Source: TISSUE/INTRAOP SPEC Collected: 05/16/2021 10:48 Status: Final Last Updated: 05/21/2021 08:50 (1) STERNAL TISSUE ISO (Final) No Anaerobes Isolated Day 5 Normal [facility] Comment on above: Order Comment: BRANDT AL TISSUE Performed By: #### 3 0312 ####[facility] *ANAEROBIC CULTURE Clinical Report: (D) Specimen/Source: SWAB/INTRAOP SPEC Collected: 05/16/2021 10:45 Status: Final Last Updated: 05/21/2021 08:50 (1) STERNAL WOUND ISO (Final) No Anaerobes Isolated Day 5 Normal [facility] Comment on above: Order Comment: BRANDT AL WOUND Performed By: #### 3 0312 ####[facility] *TISSUE CULTUREon 05-16-2021 *TISSUE CULTURE Normal The [facility] Comment on above: Order Comment: BRANDT AL TISSUE Performed By: #### 3 0338 ####[facility] *WOUND CULTUREon 05-16-2021 *WOUND CULTURE Normal [facility] Comment on above: Order Comment: BRANDT AL WOUND Performed By: #### 3 0343 ####[facility] APTTon 05-16-2021 aPTT Coag (Bld) [Time] 32.6 s Normal 25.0-35.0 [facility] Comment on above: Order [...] THIS PURPOSE. Performed By: #### 5 7307, 11279 ####[facility]3000 [facility] BASIC METABOLIC PANELon 04-25 Calcium [Mass/Vol] 8.5 mg/dL Low 8.6-10.[address] [facility] Comment on above: Order Comment: No: D o not add to previous draw Performed By: #### 4 1000, 45238, 67762 ####[facility] [facility] [place] [address], [facility] Chloride [Moles/Vol] 101 mmol/L Normal 98-107 [facility] Comment on above: Order Comment: No: D o not add to previous draw Performed By: #### 4 1000, 50703, 34605 ####[facility] [facility] [place] [address], [facility] CO2 [Moles/Vol] 31 mmol/L Normal 21-31 [facility] Comment on above: Order Comment: No: D o not add to previous draw Performed By: #### 4 1000, 42808, 45139 ####[facility] [place] [address], [facility] Creatinine [Mass/Vol] 0.66 mg/dL Low 0.70-1.30 [facility] Comment on above: Order Comment: No: D o not add to previous draw Performed By: #### 4 1000, 25232, 95144 ####[facility] [place] [address], [facility] GFR/1.73 sq M.predicted among blacks MDRD (S/P/Bld) [Vol rate/Area] mL/min/{1.73_m2} Normal >60 [facility] Comment on above: Order Comment: No: D o not add to previous draw Result Comment: Calc ulation may not be valid for patients over 70 years Performed By: #### 4 1000, 83317, 23747 ####[facility] [place] [address], [facility] GFR/1.73 sq M.predicted among non-blacks MDRD (S/P/Bld) [Vol rate/Area] mL/min/{1.73_m2} Normal >60 [facility] Comment on above: Order Comment: No: D o not add to previous draw Result Comment: Calc ulation may not be valid for patients over 70 years Performed By: #### 4 1000, , 83208 ####[facility] [place] [address], [facility] Glucose [Mass/Vol] 117 mg/dL High 70-100 [facility] Comment on above: Order Comment: No: D o not add to previous draw Performed By: #### 4 1000, , 76906 ####[facility] [place] [address], [facility] Potassium [Moles/Vol] 4.1 mmol/L Normal 3.5-5.1 [facility] Comment on above: Order Comment: No: D o not add to previous draw Performed By: #### 4 1000, , 85109 ####[facility] [place] [address], [place] Sodium [Moles/Vol] 136 mmol/L Normal 136-145 [facility] Comment on above: Order Comment: No: D o not add to previous draw Performed By: #### 4 1000, , 81613 ####[facility] [place] [address], [place] Urea nitrogen [Mass/Vol] 11 mg/dL Normal 7-25 [facility] Comment on above: Order Comment: No: D o not add to previous draw Performed By: #### 4 1000, 85991, 60995 ####[facility] [facility].[address] CBC COMPLETE BLOOD COUNTon 0 05-16-2021 Erythrocyte distribution width (RBC) [Ratio] 14.5 % Normal 11.5-15.0 [facility] Comment on above: Order Comment: No: D o not add to previous draw Performed By: #### 5 0608 ####[facility]3000 [facility] Hematocrit (Bld) [Volume fraction] 30.5 % Low 39.0-50.0 [facility] Comment on above: Order Comment: No: D o not add to previous draw Performed By: #### 5 0608 ####[facility] [facility].[address] Hemoglobin (Bld) [Mass/Vol] 9.5 g/dL Low 13.0-17.0 [facility] Comment on above: Order Comment: No: D o not add to previous draw Performed By: #### 5 0608 ####[facility] [facility].[address] MCH (RBC) [Entitic mass] 28.5 pg Normal 27.0-33.0 [facility] Comment on above: Order Comment: No: D o not add to previous draw Performed By: #### 5 0608 ####[facility] [facility] [place] [address], [facility] MCHC (RBC) [Mass/Vol] 31.1 g/dL Low 32.0-35.0 [facility] Comment on above: Order Comment: No: D o not add to previous draw Performed By: #### 5 0608 ####[facility] [facility] [place] [address], [facility] MCV (RBC) [Entitic vol] 91.6 fL Normal 82.0-98.0 [facility] Comment on above: Order Comment: No: D o not add to previous draw Performed By: #### 5 0608 ####[facility] [facility].[address] Nucleated RBC/100 WBC (Bld) [Ratio] 0 % Normal 0-0 [facility] Comment on above: Order Comment: No: D o not add to previous draw Performed By: #### 5 0608 ####[facility] [facility] [place] [address], [facility] PLAT CNT 353 10*3/uL Normal 150-400 [facility] Comment on above: Order Comment: No: D o not add to previous draw Performed By: #### 5 0608 ####[facility] [facility].[address] RBC (Bld) [#/Vol] 3.33 10*6/uL Low 4.20-5.70 [facility] Comment on above: Order Comment: No: D o not add to previous draw Performed By: #### 5 0608 ####[facility] [facility] [place] [address], [facility] WBC (Bld) [#/Vol] 5.98 10*3/uL Normal 4.00-10.60 [facility] Comment on above: Order Comment: No: D o not add to previous draw Performed By: #### 5 0608 ####[facility] [facility].[address] LACTATE BLOODon 05-16-2021 Lactate [Moles/Vol] 0.6 mmol/L Normal .5-2.2 [facility] Comment on above: Order Comment: No: D o not add to previous draw Performed By: #### 1 0054 ####[facility] [place] [address], [facility] Lactate [Moles/Vol] 0.8 mmol/L Normal .5-2.2 [facility] Comment on above: Order Comment: No: D o not add to previous draw Performed By: #### 1 0054 ####[facility] [place] [address], [facility] MAGNESIUM BLOODon 05-16-2021 Magnesium [Mass/Vol] 1.9 mg/dL Normal 1.9-2.7 [facility] Comment on above: Order Comment: No: D o not add to previous draw Performed By: #### 4 1000, 10224, 75643 ####[facility] [facility] [place] [address], [facility] OSMOLALITY BLOODon 1 Osmolality [Osmolality] 292 mosm/kg Normal 285-305 [facility] Comment on above: Order Comment: No: D o not add to previous draw Performed By: #### 3 9301, 66460 ####[facility] [facility] [place] [address], [facility] Osmolality [Osmolality] 297 mosm/kg Normal 285-305 [facility] Comment on above: Order Comment: No: D o not add to previous draw Performed By: #### 3 9301, 53761 ####[facility] [facility] [place] [address], [facility] PHOSPHORUS BLOODon 1 Phosphate [Mass/Vol] 4.3 mg/dL Normal 2.5-5.0 [facility] Comment on above: Order Comment: No: D o not add to previous draw Performed By: #### 4 1000, 13266, 85333 ####[facility] [id number], [place] POC GLUCOSE LABon 05-16-2021 Glucose [Mass/Vol] 121 mg/dL High 70-100 [facility] Comment on above: Performed By: #### 8 5499 ####[facility] [facility] [place] [address], [facility] Glucose [Mass/Vol] 126 mg/dL High 70-100 [facility] Comment on above: Performed By: #### 8 5499 ####[facility] [place] [address], [facility] Glucose [Mass/Vol] 133 mg/dL High 70-100 [facility] Comment on above: Performed By: #### 8 5499 ####[facility] [facility] [place] [address], [facility] Glucose [Mass/Vol] 131 mg/dL High 70-100 [facility] Comment on above: Performed By: #### 8 5499 ####[facility] [facility] [place] [address], [facility] PORTABLE CHEST 1 VIEWon 04-25 PORTABLE CHEST 1 VIEW Normal [facility] Comment on above: Order Comment: Check NG Tube Position PORTABLE CHEST 1 VIEW Normal [facility] Comment on above: Order Comment: Evalu ate Atelectasis PROTHROMBIN TIMEon INR Coag (PPP) [Relative time] 1.15 {INR} Normal 0.91-1.16 [facility] Comment on above: Order [...] OF ACTION, CLINICALEFFECTIVENESS, AND OPTIMAL THERAPEUTIC RANGE. [id number]. Performed By: #### 5 7307, 21536 ####[facility] PT Coag (PPP) [Time] 14.7 s Normal 12.3-14.8 [facility] Comment on above: Order Comment: No: D o not add to previous draw Result Comment: ALL RESULTS MUST BE INTERPRETED WITH RESPECT TO BLOOD DRAWING ARTIFACTOR DILUTION ERROR OF ANTICOAGULANT AT THE TIME OF SAMPLING. Performed By: #### 5 7307, 81404 ####[facility] [facility].[address] TRIGLYCERIDES BLOODon 2020 Triglyceride [Mass/Vol] 95 mg/dL Normal 40-149 [facility] Comment on above: Order Comment: No: D o not add to previous draw Result Comment: TRIG LYCERIDE REFERENCE RANGE:20 YEARS AND OLDER CARDIOVASCULAR RISKLESS THAN 150 mg/dl LOW [id number] TO 199 mg/dl BORDERLINE [id number] mg/dl AND GREATER HIGH RISK Performed By: #### 3 9301, 27253 ####[place] [address] [facility].[address] Triglyceride [Mass/Vol] 98 mg/dL Normal 40-149 [facility] Comment on above: Order Comment: No: D o not add to previous draw Result Comment: TRIG LYCERIDE REFERENCE RANGE:20 YEARS AND OLDER CARDIOVASCULAR RISKLESS THAN 150 mg/dl LOW [id number] TO 199 mg/dl BORDERLINE [id number] mg/dl AND GREATER HIGH RISK Performed By: #### 3 9301, 84900 ####[address] *BLOOD CULTUREon 05-15-2021 *BLOOD CULTURE Clinical Report: (D) Specimen: BLOOD CULTURE Collected: 05/15/2021 11:35 Status: Final Last Updated: 05/20/2021 14:11 (1) Prior to antibiotic administration CULT RES (Final) No Growth Day 5 Normal [facility] Comment on above: Order Comment: Prior to antibiotic administration Performed By: #### 3 0313 ####[place] [address] [address] APTTon 05-15-2021 aPTT Coag (Bld) [Time] 30.4 s Normal 25.0-35.0 [facility] Comment on above: Result Comment: ALL [...] THIS PURPOSE. Performed By: #### 5 7307, 95776 ####[place] [address] [address] ARTERIAL BLOOD GAS W/COOXon 05-15-2021 BASE EXCESS 2 mmol/L Normal -2-3 [facility] Comment on above: Order Comment: RESUL TS CHECKED AND CALLED. ACCURATELY READ BACK BY RADHIKA ED CHARGE. Performed By: #### 4 0055 ####[address] COHB 2.3 % High 0.0-1.5 [facility] Comment on above: Order Comment: RESUL TS CHECKED AND CALLED. ACCURATELY READ BACK BY RADHIKA ED CHARGE. Performed By: #### 4 0055 ####[place] [address] DELIVERY SYSTEMS [place] Normal [facility] Comment on above: Order Comment: RESUL TS CHECKED AND CALLED. ACCURATELY READ BACK BY RADHIKA ED CHARGE. Performed By: #### 4 0055 ####[facility] [place] [address], [facility] HCO3 (Bld) [Moles/Vol] 29 mmol/L High 21-28 [facility] Comment on above: Order Comment: RESUL TS CHECKED AND CALLED. ACCURATELY READ BACK BY RADHIKA ED CHARGE. Performed By: #### 4 0055 ####[facility] [place] [address], [facility] LPM 5.0 LPM Normal [facility] Comment on above: Order Comment: RESUL TS CHECKED AND CALLED. ACCURATELY READ BACK BY RADHIKA ED CHARGE. Performed By: #### 4 0055 ####[facility]3000 [facility] [place] [address], [facility] METHB 1.1 % Normal 0.0-1.5 [facility] Comment on above: Order Comment: RESUL TS CHECKED AND CALLED. ACCURATELY READ BACK BY RADHIKA ED CHARGE. Performed By: #### 4 0055 ####[facility] [place] [address], [facility] MODALITY [place] Normal [facility] Comment on above: Order Comment: RESUL TS CHECKED AND CALLED. ACCURATELY READ BACK BY RADHIKA ED CHARGE. Performed By: #### 4 0055 ####[facility]3000 [facility].[address] Oxygen (Bld) [Partial pressure] 83 mm[Hg] Normal 83-108 [facility] Comment on above: Order Comment: RESUL TS CHECKED AND CALLED. ACCURATELY READ BACK BY RADHIKA ED CHARGE. Performed By: #### 4 0055 ####[facility]3000 [facility].[address] Oxygen saturation in Blood 94.8 % Normal 94.0-97.0 [facility] Comment on above: Order Comment: RESUL TS CHECKED AND CALLED. ACCURATELY READ BACK BY RADHIKA ED CHARGE. Performed By: #### 4 0055 ####[facility] PCO2 58 mmHg Critically high 35-45 The [facility] Comment on above: Order Comment: RESUL TS CHECKED AND CALLED. ACCURATELY READ BACK BY RADHIKA ED CHARGE. Performed By: #### 4 0055 ####[facility] pH (Bld) 7.31 [pH] Low 7.35-7.45 [facility] Comment on above: Order Comment: RESUL TS CHECKED AND CALLED. ACCURATELY READ BACK BY RADHIKA ED CHARGE. Performed By: #### 4 0055 ####[facility] [facility].[address] THB 10.2 g/dL Low 12.0-16.3 [facility] Comment on above: Order Comment: RESUL TS CHECKED AND CALLED. ACCURATELY READ BACK BY RADHIKA ED CHARGE. Performed By: #### 4 0055 ####[facility] [facility].[address] BNP (B-TYPE NATRIURETIC PEPT MAX)on 05-15-2021 Natriuretic peptide B (Bld) [Mass/Vol] 136 pg/mL High 0-100 [facility] Comment on above: Order Comment: Yes: Add to Previous draw if able Result Comment: Give n the appropriate clinical setting a BNP result of >100 pg/mLindicates congestive heart failure. Performed By: #### 8 5123 ####[facility] CBC W/DIFFon 05-15-2021 ABS IMM GRANS 0.0 10*3/uL Normal 0.0-0.2 [facility] Comment on above: Performed By: #### 5 0103 ####[facility] ABS NEUTROPHILS 5.0 10*3/uL Normal 1.6-7.6 The [facility] Comment on above: Performed By: #### 5 0103 ####[facility] [facility] [place] [address], [facility] Basophils (Bld) [#/Vol] 0.0 10*3/uL Normal 0.0-0.2 [facility] Comment on above: Performed By: #### 5 0103 ####[facility] [facility] [place] [address], [facility] Basophils/100 WBC (Bld) 0.6 % Normal 0.0-1.0 [facility] Comment on above: Performed By: #### 5 3 ####[facility] [place] [address], [facility] Eosinophils (Bld) [#/Vol] 0.1 10*3/uL Normal 0.0-0.5 [facility] Comment on above: Performed By: #### 5 3 ####[facility] [facility] [place] [address], [facility] Eosinophils/100 WBC (Bld) 0.7 % Normal 0.0-6.0 [facility] Comment on above: Performed By: #### 5 3 ####[facility] Erythrocyte distribution width (RBC) [Ratio] 14.5 % Normal 11.5-15.0 [facility] Comment on above: Performed By: #### 5 3 ####[facility] [place] [address], [facility] Hematocrit (Bld) [Volume fraction] 32.5 % Low 39.0-50.0 [facility] Comment on above: Performed By: #### 5 3 ####[facility] [facility] [place] [address], [facility] Hemoglobin (Bld) [Mass/Vol] 10.3 g/dL Low 13.0-17.0 [facility] Comment on above: Performed By: #### 5 0103 ####[facility] IMMATURE GRANS 0.6 % Normal 0.0-1.0 The [facility] Comment on above: Performed By: #### 5 0103 ####[facility] Lymphocytes (Bld) [#/Vol] 1.1 10*3/uL Low 1.2-4.0 [facility] Comment on above: Performed By: #### 5 0103 ####[facility] Lymphocytes/100 WBC (Bld) 15.9 % Low 20.0-45.0 [facility] Comment on above: Performed By: #### 5 0103 ####[facility] [place] [address] MCH (RBC) [Entitic mass] 28.8 pg Normal 27.0-33.0 [facility] Comment on above: Performed By: #### 5 0103 ####[facility] MCHC (RBC) [Mass/Vol] 31.7 g/dL Low 32.0-35.0 [facility] Comment on above: Performed By: #### 5 0103 ####[facility] MCV (RBC) [Entitic vol] 90.8 fL Normal 82.0-98.0 [facility] Comment on above: Performed By: #### 5 0103 ####[facility] [place] [address] Monocytes (Bld) [#/Vol] 0.8 10*3/uL Normal 0.1-1.0 [facility] Comment on above: Performed By: #### 5 0103 ####[facility] [facility] [place] [address], [facility] MONOS 11.2 % Normal 5.0-12.0 [facility] Comment on above: Performed By: #### 5 0103 ####[facility] [facility] [place] [address], [facility] Neutrophils/100 WBC (Bld) 71.0 % Normal 40.0-72.0 [facility] Comment on above: Performed By: #### 5 0103 ####[facility] [facility].[address] Nucleated RBC/100 WBC (Bld) [Ratio] 0 % Normal 0-0 [facility] Comment on above: Performed By: #### 5 0103 ####[facility] [facility].[address] PLAT CNT 376 10*3/uL Normal 150-400 [facility] Comment on above: Performed By: #### 5 0103 ####[facility] [facility].[address] RBC (Bld) [#/Vol] 3.58 10*6/uL Low 4.20-5.70 The [facility] Comment on above: Performed By: #### 5 0103 ####[facility] [facility].[address] WBC (Bld) [#/Vol] 7.03 10*3/uL Normal 4.00-10.60 [facility] Comment on above: Performed By: #### 5 0103 ####[facility] COMP METABOLIC PANELon 05-15 Albumin [Mass/Vol] 3.2 g/dL Low 3.5-5.7 The [facility] Comment on above: Performed By: #### 4 1000, 29231, 16794, 27448 ####[facility] [place] [address], [facility] ALKALINE PHOSPH 84 IU/L Normal 34-104 The [facility] Comment on above: Performed By: #### 4 1000, 83969, 36756, 43023 ####[facility] [place] [address], [place] ALT [Catalytic activity/Vol] 11 U/L Normal 7-52 [facility] Comment on above: Performed By: #### 4 1000, 52820, 28161, 56904 ####[facility] [place] [address], [place] AST [Catalytic activity/Vol] 12 U/L Low 13-39 [facility] Comment on above: Performed By: #### 4 1000, 78729, 24539, 66722 ####[facility] [place] [address], [place] Bilirubin [Mass/Vol] 0.9 mg/dL Normal 0.3-1.0 [facility] Comment on above: Performed By: #### 4 1000, 07014, 25022, 38523 ####[facility] [place] [address], [place] Calcium [Mass/Vol] 8.3 mg/dL Low 8.6-10.[address] [facility] Comment on above: Performed By: #### 4 1000, 90381, 01503, 62507 ####[facility] [place] [address], [place] Chloride [Moles/Vol] 101 mmol/L Normal 98-107 [facility] Comment on above: Performed By: #### 4 1000, 13817, 44898, 79212 ####[facility] [place] [address], [place] CO2 [Moles/Vol] 30 mmol/L Normal 21-31 The [facility] Comment on above: Performed By: #### 4 1000, 00938, 90134, 07983 ####[facility] [place] [address], [place] Creatinine [Mass/Vol] 0.92 mg/dL Normal 0.70-1.30 [facility] Comment on above: Performed By: #### 4 1000, 04465, 61598, 86000 ####[facility] [place] [address], [place] GFR/1.73 sq M.predicted among blacks MDRD (S/P/Bld) [Vol rate/Area] mL/min/{1.73_m2} Normal >60 [facility] Comment on above: Result Comment: Calc ulation may not be valid for patients over 70 years Performed By: #### 4 1000, 35536, 10418, 30409 ####[facility] [place] [address], [place] GFR/1.73 sq M.predicted among non-blacks MDRD (S/P/Bld) [Vol rate/Area] mL/min/{1.73_m2} Normal >60 [facility] Comment on above: Result Comment: Calc ulation may not be valid for patients over 70 years Performed By: #### 4 1000, 23150, 52641, 65941 ####[facility] [place] [address], [place] Glucose [Mass/Vol] 138 mg/dL High 70-[address] [facility] Comment on above: Performed By: #### 4 1000, 17550, 44486, 50045 ####[facility] [place] [address], [place] Potassium [Moles/Vol] 4.1 mmol/L Normal 3.5-5.1 [facility] Comment on above: Performed By: #### 4 1000, 20446, 19096, 74210 ####[facility] [place] [address], [facility] Protein [Mass/Vol] 7.4 g/dL Normal 6.0-8.3 The [facility] Comment on above: Performed By: #### 4 1000, 64000, 06527, 95957 ####[facility] [place] [address], [facility] Sodium [Moles/Vol] 136 mmol/L Normal 136-145 [facility] Comment on above: Performed By: #### 4 1000, 32321, 06676, 16876 ####[facility] [place] [address], [facility] Urea nitrogen [Mass/Vol] 8 mg/dL Normal 7-25 [facility] Comment on above: Performed By: #### 4 1000, 02047, 00242, 83454 ####[facility] [id number], [facility] LACTATE BLOODon 05-15-2021 Lactate [Moles/Vol] 0.7 mmol/L Normal .5-2.2 The [facility] Comment on above: Order Comment: Repea t Lactate in 4 hours Performed By: #### 1 0054 ####[facility] [id number], [facility] MAGNESIUM BLOODon 05-15-2021 Magnesium [Mass/Vol] 2.0 mg/dL Normal 1.9-2.7 [facility] Comment on above: Performed By: #### 4 1000, 31094, 74263, 82368 ####[facility] [place] [address], [facility] PHOSPHORUS BLOODon Phosphate [Mass/Vol] 6.0 mg/dL High 2.5-5.0 [facility] Comment on above: Performed By: #### 4 1000, 69374, 73784, 60867 ####[facility] [facility].[address] POC GLUCOSE LABon 05-15-2021 Glucose [Mass/Vol] 225 mg/dL High 70-100 [facility] Comment on above: Performed By: #### 8 5499 ####[facility] [facility].[address] POC SARS COV2 ANTIGEN NEGATI VEon 05-15-2021 POC SARS COV2 ANTIGEN NEG Negative Normal NEGATIVE [facility] Comment on above: Result Comment: Nega [...] of clinicalsigns and symptoms consistent with COVID-19.The [employer] COVID-19 Ag Card is a lateral flow immunoassay intended forthe qualitative detection of nucleocapsid protein antigen [id number] in direct nasal swabs from individuals within [...] Certificate ofAccreditation. Performed By: #### 3 1977 ####[facility] PORTABLE CHEST 1 VIEWon 04-25 PORTABLE CHEST 1 VIEW Normal [facility] Comment on above: Order Comment: Evalu ate for Infiltrates, hypoxia, infected sternotomy site PROTHROMBIN TIMEon INR Coag (PPP) [Relative time] 1.07 {INR} Normal 0.91-1.16 [facility] Comment on above: Result Comment: ACCC P RECOMMENDED INR FOR WARFARIN THERAPY CONDITION INRPROPHYLAXIS OF VENOUS THROMBOSIS 2-3(HIGH-RISK SURGERY)TREATMENT OF VENOUS THROMBOSIS 2-3TREATMENT OF PULMONARY EMBOLISM 2-3PREVENTION OF SYSTEMIC EMBOLISM: 2-3 ACUTE MYOCARDIAL INFARCTION TISSUE HEART VALVES VALVULAR HEART DISEASE ATRIAL FIBRILLATION RECURRENT SYSTEMIC EMBOLISMMECHANICAL HEART VALVE 2.5-3.5 FROM: ORAL ANTICOAGULANTS. MECHANISM OF ACTION, CLINICALEFFECTIVENESS, AND OPTIMAL THERAPEUTIC RANGE. [id number]. Performed By: #### 5 7307, 21212 ####[facility] PT Coag (PPP) [Time] 13.9 s Normal 12.3-14.8 [facility] Comment on above: Result Comment: ALL RESULTS MUST BE INTERPRETED WITH RESPECT TO BLOOD DRAWING ARTIFACTOR DILUTION ERROR OF ANTICOAGULANT AT THE TIME OF SAMPLING. Performed By: #### 5 7307, 03598 ####[facility] [place] [address], [facility] TROPONIN-Ion 05-15-2021 Troponin I.cardiac [Mass/Vol] 0.01 ng/mL Normal 0.00-0.04 [facility] Comment on above: Result Comment: REFE RENCE RANGES: 0.00 - 0.04 ng/ml NORMAL 0.05 - 0.50 ng/ml INDETERMINATE > 0.50 ng/ml CONSISTENT WITH AN M.I. Performed By: #### 4 1000, 21222, 41763, 82988 ####[facility] [facility] [place] [address], [facility] TYPE AND SCREENon 05-15-2021 ABO INTERPRETATION O Normal [facility] Comment on above: Performed By: #### 6 2586 ####[facility] [facility] [place] [address], [facility] RH INTERPRETATION Positive Normal [facility] Comment on above: Performed By: #### 6 2586 ####[facility] [facility] [place] [address], [facility] POC GLUCOSE LABon 04-15-2021 Glucose [Mass/Vol] 143 mg/dL High 70-100 [facility] Comment on above: Performed By: #### 8 5499 ####[facility] [facility] [place] [address], [facility] Glucose [Mass/Vol] 241 mg/dL High 70-[address] [facility] Comment on above: Performed By: #### 8 5499 ####[facility] [facility] [place] [address], [facility] Glucose [Mass/Vol] 121 mg/dL High 70-[address] [facility] Comment on above: Performed By: #### 8 5499 ####[facility] [facility].[address] POC SARS COV2 ANTIGEN NEGATI VEon 04-15-2021 POC SARS COV2 ANTIGEN NEG Negative Normal NEGATIVE [facility] Comment on above: Result Comment: Nega [...] of clinicalsigns and symptoms consistent with COVID-19.The [employer] COVID-19 Ag Card is a lateral flow immunoassay intended forthe qualitative detection of nucleocapsid protein antigen [id number] in direct nasal swabs from individuals within [...] Certificate ofAccreditation. Performed By: #### 3 1977 ####[place] [address] [address] BASIC METABOLIC PANELon 08-2 Calcium [Mass/Vol] 8.7 mg/dL Normal 8.6-10.[address] [facility] Comment on above: Order Comment: No: D o not add to previous draw Performed By: #### 0 0071, 73023 ####[place] [address] [facility] [place] [address], [facility] Chloride [Moles/Vol] 95 mmol/L Low 98-107 [facility] Comment on above: Order Comment: No: D o not add to previous draw Performed By: #### 0 0071, 69263 ####[place] [address] [facility] [place] [address], [facility] CO2 [Moles/Vol] 27 mmol/L Normal 21-31 The [facility] Comment on above: Order Comment: No: D o not add to previous draw Performed By: #### 0 0071, 95826 ####[place] [address] [place] [address], [facility] Creatinine [Mass/Vol] 0.80 mg/dL Normal 0.70-1.30 [facility] Comment on above: Order Comment: No: D o not add to previous draw Performed By: #### 0 0071, 74537 ####[facility] [facility] [place] [address], [facility] GFR/1.73 sq M.predicted among blacks MDRD (S/P/Bld) [Vol rate/Area] mL/min/{1.73_m2} Normal >60 [facility] Comment on above: Order Comment: No: D o not add to previous draw Result Comment: Calc ulation may not be valid for patients over 70 years Performed By: #### 0 0071, 49163 ####[facility] [facility] [place] [address], [facility] GFR/1.73 sq M.predicted among non-blacks MDRD (S/P/Bld) [Vol rate/Area] mL/min/{1.73_m2} Normal >60 [facility] Comment on above: Order Comment: No: D o not add to previous draw Result Comment: Calc ulation may not be valid for patients over 70 years Performed By: #### 0 0071, 29143 ####[facility] [facility] [place] [address], [facility] Glucose [Mass/Vol] 108 mg/dL High 70-100 [facility] Comment on above: Order Comment: No: D o not add to previous draw Performed By: #### 0 0071, 27459 ####[facility] [facility] [place] [address], [facility] Potassium [Moles/Vol] 3.6 mmol/L Normal 3.5-5.1 [facility] Comment on above: Order Comment: No: D o not add to previous draw Performed By: #### 0 0071, 85551 ####[facility] [facility] [place] [address], [facility] Sodium [Moles/Vol] 132 mmol/L Low 136-145 [facility] Comment on above: Order Comment: No: D o not add to previous draw Performed By: #### 0 0071, 54216 ####[facility] [facility].[address] Urea nitrogen [Mass/Vol] 38 mg/dL High 7-25 [facility] Comment on above: Order Comment: No: D o not add to previous draw Performed By: #### 0 0071, 87233 ####[facility] CBC COMPLETE BLOOD COUNTon 0 04-14-2021 Erythrocyte distribution width (RBC) [Ratio] 14.1 % Normal 11.5-15.0 [facility] Comment on above: Order Comment: No: D o not add to previous draw Performed By: #### 5 0608 ####[place] [address] [address] Hematocrit (Bld) [Volume fraction] 33.5 % Low 39.0-50.0 [facility] Comment on above: Order Comment: No: D o not add to previous draw Performed By: #### 5 0608 ####[place] [address] [address] Hemoglobin (Bld) [Mass/Vol] 11.3 g/dL Low 13.0-17.0 [facility] Comment on above: Order Comment: No: D o not add to previous draw Performed By: #### 5 0608 ####[facility] MCH (RBC) [Entitic mass] 30.2 pg Normal 27.0-33.0 [facility] Comment on above: Order Comment: No: D o not add to previous draw Performed By: #### 5 0608 ####[facility] MCHC (RBC) [Mass/Vol] 33.7 g/dL Normal 32.0-35.0 [facility] Comment on above: Order Comment: No: D o not add to previous draw Performed By: #### 5 0608 ####[facility] [place] [address], [facility] MCV (RBC) [Entitic vol] 89.6 fL Normal 82.0-98.0 [facility] Comment on above: Order Comment: No: D o not add to previous draw Performed By: #### 5 0608 ####[facility] [facility] [place] [address], [facility] Nucleated RBC/100 WBC (Bld) [Ratio] 0 % Normal 0-0 [facility] Comment on above: Order Comment: No: D o not add to previous draw Performed By: #### 5 0608 ####[facility] [facility] [place] [address], [facility] PLAT CNT 314 10*3/uL Normal 150-400 [facility] Comment on above: Order Comment: No: D o not add to previous draw Performed By: #### 5 0608 ####[place] [address] [facility] [place] [address], [facility] RBC (Bld) [#/Vol] 3.74 10*6/uL Low 4.20-5.70 [facility] Comment on above: Order Comment: No: D o not add to previous draw Performed By: #### 5 0608 ####[facility] [facility] [place] [address], [facility] WBC (Bld) [#/Vol] 10.84 10*3/uL High 4.00-10.60 [facility] Comment on above: Order Comment: No: D o not add to previous draw Performed By: #### 5 0608 ####[facility] [facility] [place] [address], [facility] MAGNESIUM BLOODon 04-14-2021 Magnesium [Mass/Vol] 1.9 mg/dL Normal 1.9-2.7 [facility] Comment on above: Order Comment: No: D o not add to previous draw Performed By: #### 0 0071, 98912 ####[facility] [place] [address], [place] POC GLUCOSE LABon 04-14-2021 Glucose [Mass/Vol] 168 mg/dL High 70-100 [facility] Comment on above: Performed By: #### 8 5499 ####[facility] [place] [address], [place] Glucose [Mass/Vol] 133 mg/dL High 70-100 [facility] Comment on above: Performed By: #### 8 5499 ####[facility] [place] [address], [place] Glucose [Mass/Vol] 167 mg/dL High 70-100 [facility] Comment on above: Performed By: #### 8 5499 ####[facility] [place] [address], [place] Glucose [Mass/Vol] 146 mg/dL High 70-100 [facility] Comment on above: Performed By: #### 8 5499 ####[facility] [place] [address], [place] Glucose [Mass/Vol] 152 mg/dL High 70-100 [facility] Comment on above: Performed By: #### 8 5499 ####[facility] [place] [address], [place] PORTABLE CHEST 1 VIEWon 03-25 PORTABLE CHEST 1 VIEW Normal [facility] Comment on above: Order Comment: evalu ate Atelectasis BASIC METABOLIC PANELon 03-25 Calcium [Mass/Vol] 9.1 mg/dL Normal 8.6-10.3 [facility] Comment on above: Order Comment: No: D o not add to previous draw Performed By: #### 1 0, 37813 ####[facility] [place] [address], [facility] Chloride [Moles/Vol] 94 mmol/L Low 98-107 [facility] Comment on above: Order Comment: No: D o not add to previous draw Performed By: #### 1 0, 01877 ####[facility] [place] [address], [facility] CO2 [Moles/Vol] 27 mmol/L Normal 21-31 The [facility] Comment on above: Order Comment: No: D o not add to previous draw Performed By: #### 1 0, 86727 ####[facility] [facility] [place] [address], [facility] Creatinine [Mass/Vol] 0.87 mg/dL Normal 0.70-1.30 [facility] Comment on above: Order Comment: No: D o not add to previous draw Performed By: #### 1 0, 02050 ####[facility] [facility] [place] [address], [facility] GFR/1.73 sq M.predicted among blacks MDRD (S/P/Bld) [Vol rate/Area] mL/min/{1.73_m2} Normal >60 [facility] Comment on above: Order Comment: No: D o not add to previous draw Result Comment: Calc ulation may not be valid for patients over 70 years Performed By: #### 1 69, 00570 ####[facility] [place] [address], [facility] GFR/1.73 sq M.predicted among non-blacks MDRD (S/P/Bld) [Vol rate/Area] mL/min/{1.73_m2} Normal >60 [facility] Comment on above: Order Comment: No: D o not add to previous draw Result Comment: Calc ulation may not be valid for patients over 70 years Performed By: #### 1 69, 99789 ####[facility] [facility] [place] [address], [facility] Glucose [Mass/Vol] 125 mg/dL High 70-100 [facility] Comment on above: Order Comment: No: D o not add to previous draw Performed By: #### 1 69, 85148 ####[facility] Potassium [Moles/Vol] 3.2 mmol/L Low 3.5-5.1 [facility] Comment on above: Order Comment: No: D o not add to previous draw Performed By: #### 1 69, 16134 ####[facility] [facility].[address] Sodium [Moles/Vol] 132 mmol/L Low 136-145 [facility] Comment on above: Order Comment: No: D o not add to previous draw Performed By: #### 1 69, 07005 ####[facility] [facility].[address] Urea nitrogen [Mass/Vol] 27 mg/dL High 7-25 [facility] Comment on above: Order Comment: No: D o not add to previous draw Performed By: #### 1 69, 93380 ####[facility] CBC COMPLETE BLOOD COUNTon 0 8- Erythrocyte distribution width (RBC) [Ratio] 14.2 % Normal 11.5-15.0 [facility] Comment on above: Order Comment: No: D o not add to previous draw Performed By: #### 5 0608 ####[facility] [facility].[address] Hematocrit (Bld) [Volume fraction] 35.2 % Low 39.0-50.0 [facility] Comment on above: Order Comment: No: D o not add to previous draw Performed By: #### 5 0608 ####[facility] [facility].[address] Hemoglobin (Bld) [Mass/Vol] 11.9 g/dL Low 13.0-17.0 [facility] Comment on above: Order Comment: No: D o not add to previous draw Performed By: #### 5 0608 ####[facility] MCH (RBC) [Entitic mass] 30.6 pg Normal 27.0-33.0 [facility] Comment on above: Order Comment: No: D o not add to previous draw Performed By: #### 5 0608 ####[facility] MCHC (RBC) [Mass/Vol] 33.8 g/dL Normal 32.0-35.0 [facility] Comment on above: Order Comment: No: D o not add to previous draw Performed By: #### 5 0608 ####[address] MCV (RBC) [Entitic vol] 90.5 fL Normal 82.0-98.0 [facility] Comment on above: Order Comment: No: D o not add to previous draw Performed By: #### 5 0608 ####[facility] [place] [address] Nucleated RBC/100 WBC (Bld) [Ratio] 0 % Normal 0-0 [facility] Comment on above: Order Comment: No: D o not add to previous draw Performed By: #### 5 0608 ####[facility] [place] [address], [facility] PLAT CNT 285 10*3/uL Normal 150-400 [facility] Comment on above: Order Comment: No: D o not add to previous draw Performed By: #### 5 0608 ####[facility] [facility] [place] [address], [facility] RBC (Bld) [#/Vol] 3.89 10*6/uL Low 4.20-5.70 [facility] Comment on above: Order Comment: No: D o not add to previous draw Performed By: #### 5 0608 ####[facility] [facility] [place] [address], [place] WBC (Bld) [#/Vol] 9.92 10*3/uL Normal 4.00-10.60 [facility] Comment on above: Order Comment: No: D o not add to previous draw Performed By: #### 5 0608 ####[facility] [facility] [place] [address], [facility] MAGNESIUM BLOODon 04-13-2021 Magnesium [Mass/Vol] 1.9 mg/dL Normal 1.9-2.7 [facility] Comment on above: Order Comment: No: D o not add to previous draw Performed By: #### 1 0070, 07341 ####[facility] [facility] [place] [address], [facility] POC GLUCOSE LABon 04-13-2021 Glucose [Mass/Vol] 106 mg/dL High 70-100 [facility] Comment on above: Performed By: #### 8 5499 ####[facility] [facility] [place] [address], [facility] Glucose [Mass/Vol] 185 mg/dL High 70-100 [facility] Comment on above: Performed By: #### 8 5499 ####[facility] [place] [address], [place] Glucose [Mass/Vol] 136 mg/dL High 70-100 [facility] Comment on above: Performed By: #### 8 5499 ####[facility] [place] [address], [facility] PORTABLE CHEST 1 VIEWon 03-25 PORTABLE CHEST 1 VIEW Normal [facility] Comment on above: Order Comment: evalu ate for Atelectasis BASIC METABOLIC PANELon 03-25 Calcium [Mass/Vol] 8.3 mg/dL Low 8.6-10.[address] [facility] Comment on above: Order Comment: No: D o not add to previous draw Performed By: #### 1 0, 06223 ####[facility] [place] [address], [facility] Chloride [Moles/Vol] 102 mmol/L Normal 98-107 [facility] Comment on above: Order Comment: No: D o not add to previous draw Performed By: #### 1 69, 60666 ####[facility] [place] [address], [facility] CO2 [Moles/Vol] 25 mmol/L Normal 21-31 The [facility] Comment on above: Order Comment: No: D o not add to previous draw Performed By: #### 1 0, 64543 ####[facility] [place] [address], [facility] Creatinine [Mass/Vol] 0.67 mg/dL Low 0.70-1.30 [facility] Comment on above: Order Comment: No: D o not add to previous draw Performed By: #### 1 69, 19840 ####[facility] [place] [address], [facility] GFR/1.73 sq M.predicted among blacks MDRD (S/P/Bld) [Vol rate/Area] mL/min/{1.73_m2} Normal >60 [facility] Comment on above: Order Comment: No: D o not add to previous draw Result Comment: Calc ulation may not be valid for patients over 70 years Performed By: #### 1 69, 54092 ####[facility] [place] [address], [facility] GFR/1.73 sq M.predicted among non-blacks MDRD (S/P/Bld) [Vol rate/Area] mL/min/{1.73_m2} Normal >60 [facility] Comment on above: Order Comment: No: D o not add to previous draw Result Comment: Calc ulation may not be valid for patients over 70 years Performed By: #### 1 69, 96570 ####[facility] [place] [address], [facility] Glucose [Mass/Vol] 116 mg/dL High 70-100 [facility] Comment on above: Order Comment: No: D o not add to previous draw Performed By: #### 1 69, 22419 ####[facility] [place] [address], [facility] Potassium [Moles/Vol] 4.0 mmol/L Normal 3.5-5.1 [facility] Comment on above: Order Comment: No: D o not add to previous draw Performed By: #### 1 69, 83841 ####[facility] [place] [address], [facility] Sodium [Moles/Vol] 134 mmol/L Low 136-145 [facility] Comment on above: Order Comment: No: D o not add to previous draw Performed By: #### 1 69, 61529 ####[facility] [id number], [place] Urea nitrogen [Mass/Vol] 22 mg/dL Normal 7-25 [facility] Comment on above: Order Comment: No: D o not add to previous draw Performed By: #### 1 69, 41087 ####[facility] [place] [address], [facility] CBC COMPLETE BLOOD COUNTon 0 04-12-2021 Erythrocyte distribution width (RBC) [Ratio] 14.6 % Normal 11.5-15.0 [facility] Comment on above: Order Comment: No: D o not add to previous draw Performed By: #### 5 0608 ####[facility] Hematocrit (Bld) [Volume fraction] 33.1 % Low 39.0-50.0 [facility] Comment on above: Order Comment: No: D o not add to previous draw Performed By: #### 5 0608 ####[address] Hemoglobin (Bld) [Mass/Vol] 10.6 g/dL Low 13.0-17.0 [facility] Comment on above: Order Comment: No: D o not add to previous draw Performed By: #### 5 0608 ####[address] MCH (RBC) [Entitic mass] 30.0 pg Normal 27.0-33.0 [facility] Comment on above: Order Comment: No: D o not add to previous draw Performed By: #### 5 0608 ####[address] MCHC (RBC) [Mass/Vol] 32.0 g/dL Normal 32.0-35.0 [facility] Comment on above: Order Comment: No: D o not add to previous draw Performed By: #### 5 0608 ####[address] MCV (RBC) [Entitic vol] 93.8 fL Normal 82.0-98.0 [facility] Comment on above: Order Comment: No: D o not add to previous draw Performed By: #### 5 0608 ####[address] [place] [address], [place] Nucleated RBC/100 WBC (Bld) [Ratio] 0 % Normal 0-0 [facility] Comment on above: Order Comment: No: D o not add to previous draw Performed By: #### 5 0608 ####[facility] [place] [address], [facility] PLAT CNT 213 10*3/uL Normal 150-400 [facility] Comment on above: Order Comment: No: D o not add to previous draw Performed By: #### 5 0608 ####[address] RBC (Bld) [#/Vol] 3.53 10*6/uL Low 4.20-5.70 [facility] Comment on above: Order Comment: No: D o not add to previous draw Performed By: #### 5 0608 ####[address] WBC (Bld) [#/Vol] 7.64 10*3/uL Normal 4.00-10.60 The [facility] Comment on above: Order Comment: No: D o not add to previous draw Performed By: #### 5 0608 ####[address] MAGNESIUM BLOODon 04-12-2021 Magnesium [Mass/Vol] 1.9 mg/dL Normal 1.9-2.7 The [facility] Comment on above: Order Comment: No: D o not add to previous draw Performed By: #### 1 0070, 55166 ####[address] POC GLUCOSE LABon 04-12-2021 Glucose [Mass/Vol] 126 mg/dL High 70-100 The [facility] Comment on above: Performed By: #### 8 5499 ####[facility] [facility] [place] [address], [facility] Glucose [Mass/Vol] 131 mg/dL High 70-100 The [facility] Comment on above: Performed By: #### 8 5499 ####[facility] [facility] [place] [address], [place] Glucose [Mass/Vol] 167 mg/dL High 70-100 The [facility] Comment on above: Performed By: #### 8 5499 ####[facility] [facility] [place] [address], [facility] POC SARS COV2 ANTIGEN NEGATI VEon 04-12-2021 POC SARS COV2 ANTIGEN NEG Negative Normal NEGATIVE The [facility] Comment on above: Result Comment: Nega [...] of clinicalsigns and symptoms consistent with COVID-19.The [employer] COVID-19 Ag Card is a lateral flow immunoassay intended forthe qualitative detection of nucleocapsid protein antigen wmyyQDQY-[id number] in direct nasal swabs from individuals within [...] Certificate ofAccreditation. Performed By: #### 3 1977 ####[facility] [facility] [place] [address], [facility] POC SARS COV2 ANTIGEN NEG Negative Normal NEGATIVE The [facility] Comment on above: Result Comment: Nega [...] of clinicalsigns and symptoms consistent with COVID-19.The [employer] COVID-19 Ag Card is a lateral flow immunoassay intended forthe qualitative detection of nucleocapsid protein antigen tyosVDVG-VpG-8 in direct nasal swabs from individuals within [...] Certificate ofAccreditation. Performed By: #### 3 1977 ####[facility] PORTABLE CHEST 1 VIEWon 03-25 PORTABLE CHEST 1 VIEW Normal The [facility] Comment on above: Order Comment: evalu ate for Atelectasis BASIC METABOLIC PANELon 03-24 Calcium [Mass/Vol] 7.9 mg/dL Low 8.6-10.3 [facility] Comment on above: Order Comment: No: D o not add to previous draw Performed By: #### 4 1000, 01140, 03266 ####[facility] [facility] [place] [address], [facility] Chloride [Moles/Vol] 100 mmol/L Normal 98-107 The [facility] Comment on above: Order Comment: No: D o not add to previous draw Performed By: #### 4 1000, 46332, 20163 ####[facility] [place] [address], [facility] CO2 [Moles/Vol] 27 mmol/L Normal 21-31 The [facility] Comment on above: Order Comment: No: D o not add to previous draw Performed By: #### 4 1000, 74773, 41539 ####[facility] [place] [address], [facility] Creatinine [Mass/Vol] 0.80 mg/dL Normal 0.70-1.30 [facility] Comment on above: Order Comment: No: D o not add to previous draw Performed By: #### 4 1000, 84566, 79228 ####[facility] [facility] [place] [address], [facility] GFR/1.73 sq M.predicted among blacks MDRD (S/P/Bld) [Vol rate/Area] mL/min/{1.73_m2} Normal >60 [facility] Comment on above: Order Comment: No: D o not add to previous draw Result Comment: Calc ulation may not be valid for patients over 70 years Performed By: #### 4 1000, 95517, 26106 ####[facility] [facility] [place] [address], [facility] GFR/1.73 sq M.predicted among non-blacks MDRD (S/P/Bld) [Vol rate/Area] mL/min/{1.73_m2} Normal >60 The [facility] Comment on above: Order Comment: No: D o not add to previous draw Result Comment: Calc ulation may not be valid for patients over 70 years Performed By: #### 4 1000, 30014, 81226 ####[facility] [place] [address], [facility] Glucose [Mass/Vol] 135 mg/dL High 70-[address] [facility] Comment on above: Order Comment: No: D o not add to previous draw Performed By: #### 4 1000, 47518, 21826 ####[facility] [place] [address], [facility] Potassium [Moles/Vol] 3.4 mmol/L Low 3.5-5.1 [facility] Comment on above: Order Comment: No: D o not add to previous draw Performed By: #### 4 1000, 90562, 82867 ####[facility] [place] [address], [facility] Sodium [Moles/Vol] 134 mmol/L Low 136-145 The [facility] Comment on above: Order Comment: No: D o not add to previous draw Performed By: #### 4 1000, 55048, 91730 ####[facility] [place] [address], [facility] Urea nitrogen [Mass/Vol] 21 mg/dL Normal 7-25 [facility] Comment on above: Order Comment: No: D o not add to previous draw Performed By: #### 4 1000, 70066, 67247 ####[facility] CBC COMPLETE BLOOD COUNTon 0 - Erythrocyte distribution width (RBC) [Ratio] 15.0 % Normal 11.5-15.0 The [facility] Comment on above: Order Comment: No: D o not add to previous drawNurse draw Performed By: #### 5 0608 ####[facility] [place] [address], [facility] Hematocrit (Bld) [Volume fraction] 32.0 % Low 39.0-50.0 [facility] Comment on above: Order Comment: No: D o not add to previous drawNurse draw Performed By: #### 5 0608 ####[facility] [place] [address], [facility] Hemoglobin (Bld) [Mass/Vol] 10.6 g/dL Low 13.0-17.0 [facility] Comment on above: Order Comment: No: D o not add to previous drawNurse draw Performed By: #### 5 0608 ####[facility] [facility].[address] MCH (RBC) [Entitic mass] 30.5 pg Normal 27.0-33.0 [facility] Comment on above: Order Comment: No: D o not add to previous drawNurse draw Performed By: #### 5 0608 ####[address] MCHC (RBC) [Mass/Vol] 33.1 g/dL Normal 32.0-35.0 [facility] Comment on above: Order Comment: No: D o not add to previous drawNurse draw Performed By: #### 5 0608 ####[address] MCV (RBC) [Entitic vol] 92.2 fL Normal 82.0-98.0 [facility] Comment on above: Order Comment: No: D o not add to previous drawNurse draw Performed By: #### 5 0608 ####[address] Nucleated RBC/100 WBC (Bld) [Ratio] 0 % Normal 0-0 [facility] Comment on above: Order Comment: No: D o not add to previous drawNurse draw Performed By: #### 5 0608 ####[address] PLAT CNT 182 10*3/uL Normal 150-400 The [facility] Comment on above: Order Comment: No: D o not add to previous drawNurse draw Performed By: #### 5 0608 ####[address] RBC (Bld) [#/Vol] 3.47 10*6/uL Low 4.20-5.70 The [facility] Comment on above: Order Comment: No: D o not add to previous drawNurse draw Performed By: #### 5 0608 ####[facility] [place] [address], [facility] WBC (Bld) [#/Vol] 9.87 10*3/uL Normal 4.00-10.60 The [facility] Comment on above: Order Comment: No: D o not add to previous drawNurse draw Performed By: #### 5 0608 ####[facility] [place] [address], [place] MAGNESIUM BLOODon 04-11-2021 Magnesium [Mass/Vol] 2.1 mg/dL Normal 1.9-2.7 [facility] Comment on above: Order Comment: No: D o not add to previous draw Performed By: #### 4 1000, 16611, 55569 ####[facility] [place] [address], [facility] PHOSPHORUS BLOODon Phosphate [Mass/Vol] 3.7 mg/dL Normal 2.5-5.0 [facility] Comment on above: Order Comment: No: D o not add to previous draw Performed By: #### 4 1000, 98767, 04818 ####[facility] [place] [address], [place] POC GLUCOSE LABon 04-11-2021 Glucose [Mass/Vol] 137 mg/dL High 70-100 The [facility] Comment on above: Performed By: #### 8 5499 ####[facility] [place] [address], [place] Glucose [Mass/Vol] 182 mg/dL High 70-100 The [facility] Comment on above: Performed By: #### 8 7039 ####[facility] [place] [address], [place] Glucose [Mass/Vol] 171 mg/dL High 70-100 The [facility] Comment on above: Performed By: #### 8 5499 ####[facility] [facility] [place] [address], [facility] Glucose [Mass/Vol] 142 mg/dL High 70-100 The [facility] Comment on above: Performed By: #### 8 5499 ####[facility] [facility] [place] [address], [facility] PORTABLE CHEST 1 VIEWon 03-24 PORTABLE CHEST 1 VIEW Normal The [facility] Comment on above: Order Comment: Evalu ate for Pneumothorax PORTABLE CHEST 1 VIEW Normal The [facility] Comment on above: Order Comment: evalu ate for Pneumothorax BASIC METABOLIC PANELon 03-24 Calcium [Mass/Vol] 8.2 mg/dL Low 8.6-10.3 The [facility] Comment on above: Order Comment: No: D o not add to previous drawNurse draw rn barbara Performed By: #### 4 999, 81602, 17939 ####[facility] [facility] [place] [address], [facility] Chloride [Moles/Vol] 104 mmol/L Normal 98-107 [facility] Comment on above: Order Comment: No: D o not add to previous drawNurse draw rn barbara Performed By: #### 4 999, 65203, 08378 ####[facility] [facility] [place] [address], [facility] CO2 [Moles/Vol] 27 mmol/L Normal 21-31 The [facility] Comment on above: Order Comment: No: D o not add to previous drawNurse draw rn barbara Performed By: #### 4 1000, 36764, 39143 ####[facility] [facility].[place] [id number], [facility] Creatinine [Mass/Vol] 0.76 mg/dL Normal 0.70-1.30 [facility] Comment on above: Order Comment: No: D o not add to previous drawNurse draw rn barbara Performed By: #### 4 1000, 49847, 11964 ####[facility] [place] [address], [facility] GFR/1.73 sq M.predicted among blacks MDRD (S/P/Bld) [Vol rate/Area] mL/min/{1.73_m2} Normal >60 [facility] Comment on above: Order Comment: No: D o not add to previous drawNurse draw rn barbara Result Comment: Calc ulation may not be valid for patients over 70 years Performed By: #### 4 1000, 40441, 68861 ####[facility] [facility] [place] [address], [facility] GFR/1.73 sq M.predicted among non-blacks MDRD (S/P/Bld) [Vol rate/Area] mL/min/{1.73_m2} Normal >60 [facility] Comment on above: Order Comment: No: D o not add to previous drawNurse draw rn barbara Result Comment: Calc ulation may not be valid for patients over 70 years Performed By: #### 4 1000, 36301, 26914 ####[place] [address] [facility] [place] [address], [facility] Glucose [Mass/Vol] 109 mg/dL High 70-100 The [facility] Comment on above: Order Comment: No: D o not add to previous drawNurse draw rn barbara Performed By: #### 4 1000, 54464, 76976 ####[facility] [place] [address], [facility] Potassium [Moles/Vol] 4.0 mmol/L Normal 3.5-5.1 [facility] Comment on above: Order Comment: No: D o not add to previous drawNurse draw rn barbara Performed By: #### 4 1000, 20786, 66971 ####[facility] [id number], [place] Sodium [Moles/Vol] 135 mmol/L Low 136-145 [facility] Comment on above: Order Comment: No: D o not add to previous drawNurse draw rn barbara Performed By: #### 4 1000, 65483, 00342 ####[facility] [facility].[address] Urea nitrogen [Mass/Vol] 15 mg/dL Normal 7-25 [facility] Comment on above: Order Comment: No: D o not add to previous drawNurse draw rn barbara Performed By: #### 4 1000, 29217, 49929 ####[facility] [facility].[address] CBC COMPLETE BLOOD COUNTon 04-10-2021 Erythrocyte distribution width (RBC) [Ratio] 14.7 % Normal 11.5-15.0 [facility] Comment on above: Order Comment: No: D o not add to previous drawNurse draw rn barbara Performed By: #### 5 0608 ####[facility] [facility].[address] Hematocrit (Bld) [Volume fraction] 32.7 % Low 39.0-50.0 [facility] Comment on above: Order Comment: No: D o not add to previous drawNurse draw rn barbara Performed By: #### 5 0608 ####[facility] [facility].[address] Hemoglobin (Bld) [Mass/Vol] 10.7 g/dL Low 13.0-17.0 [facility] Comment on above: Order Comment: No: D o not add to previous drawNurse draw rn barbara Performed By: #### 5 0608 ####[facility] [facility] [place] [address], [facility] MCH (RBC) [Entitic mass] 30.1 pg Normal 27.0-33.0 [facility] Comment on above: Order Comment: No: D o not add to previous drawNurse draw rn barbara Performed By: #### 5 0608 ####[facility] MCHC (RBC) [Mass/Vol] 32.7 g/dL Normal 32.0-35.0 [facility] Comment on above: Order Comment: No: D o not add to previous drawNurse draw rn barbara Performed By: #### 5 0608 ####[facility] [facility].[address] MCV (RBC) [Entitic vol] 92.1 fL Normal 82.0-98.0 [facility] Comment on above: Order Comment: No: D o not add to previous drawNurse draw rn barbara Performed By: #### 5 0608 ####[facility] Nucleated RBC/100 WBC (Bld) [Ratio] 0 % Normal 0-0 [facility] Comment on above: Order Comment: No: D o not add to previous drawNurse draw rn barbara Performed By: #### 5 0608 ####[facility] [facility].[address] PLAT CNT 176 10*3/uL Normal 150-400 [facility] Comment on above: Order Comment: No: D o not add to previous drawNurse draw rn barbara Performed By: #### 5 0608 ####[facility] [facility].[address] RBC (Bld) [#/Vol] 3.55 10*6/uL Low 4.20-5.70 The [facility] Comment on above: Order Comment: No: D o not add to previous drawNurse draw rn barbara Performed By: #### 5 0608 ####[facility] [place] [address].[place] [address], [facility] WBC (Bld) [#/Vol] 12.43 10*3/uL High 4.00-10.60 [facility] Comment on above: Order Comment: No: D o not add to previous drawNurse draw rn barbara Performed By: #### 5 0608 ####[facility] [place] [address], [facility] COOXIMETRYon 04-10-2021 COHB 1 % Normal [facility] Comment on above: Performed By: #### 7 0207 ####[facility] [place] [address], [facility] METHB 0 % Normal [facility] Comment on above: Performed By: #### 7 0207 ####[facility] [facility] [place] [address], [facility] Oxygen saturation in Blood 68.2 % Normal 65.0-75.0 [facility] Comment on above: Performed By: #### 7 0207 ####[facility] [facility] [place] [address], [facility] THB 13.1 g/dL Normal [facility] Comment on above: Performed By: #### 7 0207 ####[facility] [facility] [place] [address], [facility] LACTATE BLOODon 04-10-2021 Lactate [Moles/Vol] 0.7 mmol/L Normal .5-2.2 The [facility] Comment on above: Order Comment: No: D o not add to previous drawNurse draw rn barbara Performed By: #### 1 0054 ####[facility] [place] [address], [facility] MAGNESIUM BLOODon 04-10-2021 Magnesium [Mass/Vol] 2.3 mg/dL Normal 1.9-2.7 [facility] Comment on above: Order Comment: No: D o not add to previous drawNurse draw rn barbara Performed By: #### 4 1000, 69440, 04569 ####[facility] [place] [address], [place] PHOSPHORUS BLOODon Phosphate [Mass/Vol] 3.9 mg/dL Normal 2.5-5.0 [facility] Comment on above: Order Comment: No: D o not add to previous drawNurse draw sumit jimenez Performed By: #### 4 1000, 98248, 47032 ####[facility] [place] [address], [place] POC GLUCOSE LABon 04-10-2021 Glucose [Mass/Vol] 168 mg/dL High 70-100 [facility] Comment on above: Performed By: #### 8 5499 ####[facility] [place] [address], [place] Glucose [Mass/Vol] 131 mg/dL High 70-100 [facility] Comment on above: Performed By: #### 8 5499 ####[facility] [place] [address], [place] Glucose [Mass/Vol] 123 mg/dL High 70-100 [facility] Comment on above: Performed By: #### 8 5499 ####[facility] [place] [address], [place] Glucose [Mass/Vol] 170 mg/dL High 70-100 [facility] Comment on above: Performed By: #### 8 5499 ####[facility] [place] [address], [place] Glucose [Mass/Vol] 131 mg/dL High 70-100 [facility] Comment on above: Performed By: #### 8 5499 ####[facility] [place] [address], [place] Glucose [Mass/Vol] 123 mg/dL High 70-100 The [facility] Comment on above: Performed By: #### 8 5499 ####[facility] [place] [address], [place] Glucose [Mass/Vol] 92 mg/dL Normal 70-100 [facility] Comment on above: Performed By: #### 8 5499 ####[facility] [place] [address], [place] Glucose [Mass/Vol] 99 mg/dL Normal 70-100 [facility] Comment on above: Performed By: #### 8 5499 ####[facility] [place] [address], [place] Glucose [Mass/Vol] 124 mg/dL High 70-100 [facility] Comment on above: Performed By: #### 8 5499 ####[facility] [place] [address], [place] Glucose [Mass/Vol] 141 mg/dL High 70-100 [facility] Comment on above: Performed By: #### 8 5499 ####[facility] [place] [address], [place] Glucose [Mass/Vol] 143 mg/dL High 70-100 [facility] Comment on above: Performed By: #### 8 5499 ####[facility] [place] [address], [place] PORTABLE CHEST 1 VIEWon 03-24 PORTABLE CHEST 1 VIEW Normal [facility] Comment on above: Order Comment: Check Chest Tube Position, s/p mediasteinal tube removal PORTABLE CHEST 1 VIEW Normal [facility] Comment on above: Order Comment: evalu ate for Atelectasis APTTon 04-09-2021 aPTT Coag (Bld) [Time] 28.6 s Normal 25.0-35.0 [facility] Comment on above: Order [...] THIS PURPOSE. Performed By: #### 5 7307, 54442 ####[facility] [place] [address], [facility] ARTERIAL BLOOD GAS WITH ICAo n 04-09-2021 DEL[employer]ERY SYSTEMS [place] Normal The [facility] Comment on above: Performed By: #### 8 4511 ####[facility] [place] [address], [facility] IONIZED CALCIUM 1.15 mmol/L Normal 1.13-1.32 The [facility] Comment on above: Performed By: #### 8 4511 ####[facility] [place] [address], [facility] LPM 4.0 LPM Normal [facility] Comment on above: Performed By: #### 8 4511 ####[facility] [place] [address], [facility] Oxygen (Bld) [Partial pressure] 63 mm[Hg] Low 83-108 [facility] Comment on above: Performed By: #### 8 4511 ####[facility] [place] [address], [facility] Oxygen saturation in Blood 94.2 % Normal 94.0-97.0 [facility] Comment on above: Performed By: #### 8 4511 ####[facility] [place] [address], [facility] BASE EXCESS 3 mmol/L Normal -2-3 The [facility] Comment on above: Performed By: #### 8 4511 ####[facility] [place] [address], [facility] DELIVERY SYSTEMS MV Normal The [facility] Comment on above: Performed By: #### 8 4511 ####[facility] [place] [address], [facility] FIO2 40 % Normal [facility] Comment on above: Performed By: #### 8 4511 ####[facility] [place] [address], [facility] HCO3 (Bld) [Moles/Vol] 27 mmol/L Normal 21-28 [facility] Comment on above: Performed By: #### 8 4511 ####[facility] [place] [address], [facility] IONIZED CALCIUM 1.17 mmol/L Normal 1.13-1.32 [facility] Comment on above: Performed By: #### 8 4511 ####[facility] [place] [address], [facility] MIN VOLUME 14.0 Normal [facility] Comment on above: Performed By: #### 8 4511 ####[facility] [place] [address], [facility] MODALITY SPONT Normal [facility] Comment on above: Performed By: #### 8 4511 ####[facility] [place] [address], [facility] Oxygen (Bld) [Partial pressure] 79 mm[Hg] Low 83-108 [facility] Comment on above: Performed By: #### 8 4511 ####[facility] [place] [address], [place] Oxygen saturation in Blood 96.5 % Normal 94.0-97.0 [facility] Comment on above: Performed By: #### 8 4511 ####[facility] [place] [address], [facility] PCO2 37 mmHg Normal 35-45 [facility] Comment on above: Performed By: #### 8 4511 ####[facility] [place] [address], [facility] PEEP 5.0 CMH20 Normal [facility] Comment on above: Performed By: #### 8 4511 ####[facility] [place] [address], [place] PF RATIO 198 mmHg Normal [facility] Comment on above: Performed By: #### 8 4511 ####[facility] [place] [address], [facility] pH (Bld) 7.47 [pH] High 7.35-7.45 [facility] Comment on above: Performed By: #### 8 4511 ####[facility] [facility] [place] [address], [facility] PRESSURE SUPPORT 5 Normal [facility] Comment on above: Performed By: #### 8 4511 ####[facility] [facility] [place] [address], [facility] BASE EXCESS 2 mmol/L Normal -2-3 [facility] Comment on above: Performed By: #### 8 4511 ####[facility] [facility] [place] [address], [facility] DELIVERY SYSTEMS MV Normal [facility] Comment on above: Performed By: #### 8 4511 ####[facility] [place] [address], [facility] FIO2 50 % Normal [facility] Comment on above: Performed By: #### 8 4511 ####[facility] [place] [address], [facility] HCO3 (Bld) [Moles/Vol] 26 mmol/L Normal 21-28 [facility] Comment on above: Performed By: #### 8 4511 ####[facility] [place] [address], [facility] IONIZED CALCIUM 1.17 mmol/L Normal 1.13-1.32 [facility] Comment on above: Performed By: #### 8 4511 ####[facility] [place] [address], [place] MIN VOLUME 13.3 Normal [facility] Comment on above: Performed By: #### 8 4511 ####[facility] [place] [address], [facility] MODALITY SIMV Normal [facility] Comment on above: Performed By: #### 8 4511 ####[facility] [place] [address], [facility] Oxygen (Bld) [Partial pressure] 79 mm[Hg] Low 83-108 [facility] Comment on above: Performed By: #### 8 4511 ####[facility] [place] [address], [facility] Oxygen saturation in Blood 96.8 % Normal 94.0-97.0 [facility] Comment on above: Performed By: #### 8 4511 ####[facility] [place] [address], [facility] PCO2 36 mmHg Normal 35-45 [facility] Comment on above: Performed By: #### 8 4511 ####[facility] [place] [address], [place] PEEP 8.0 CMH20 Normal [facility] Comment on above: Performed By: #### 8 4511 ####[facility] [place] [address], [place] PF RATIO 158 mmHg Normal [facility] Comment on above: Performed By: #### 8 4511 ####[facility] [place] [address], [place] pH (Bld) 7.46 [pH] High 7.35-7.45 [facility] Comment on above: Performed By: #### 8 4511 ####[facility] [facility].[address] PRESSURE SUPPORT 10 Normal [facility] Comment on above: Performed By: #### 8 4511 ####[facility] Respiratory rate 18 /min Normal [facility] Comment on above: Performed By: #### 8 4511 ####[facility] TIDAL VOLUME (VT) CC 700 Normal [facility] Comment on above: Performed By: #### 8 4511 ####[facility] [facility] BASE EXCESS -4 mmol/L Low -2-3 [facility] Comment on above: Performed By: #### 8 4511 ####[facility] [facility].[address] DELIVERY SYSTEMS MV Normal [facility] Comment on above: Performed By: #### 8 4511 ####[facility] [facility].[address] FIO2 80 % Normal [facility] Comment on above: Performed By: #### 8 4511 ####[facility] [place] [address], [facility] HCO3 (Bld) [Moles/Vol] 20 mmol/L Low 21-28 [facility] Comment on above: Performed By: #### 8 4511 ####[facility] [place] [address], [facility] IONIZED CALCIUM 1.14 mmol/L Normal 1.13-1.32 [facility] [place] [facility] Comment on above: Performed By: #### 8 4511 ####[facility] [place] [address], [facility] MIN VOLUME 13.5 Normal [facility] Comment on above: Performed By: #### 8 4511 ####[facility] [place] [address], [facility] MODALITY SIMV Normal [facility] Comment on above: Performed By: #### 8 4511 ####[facility] [place] [address], [facility] Oxygen (Bld) [Partial pressure] 121 mm[Hg] Critically high 83-108 [facility] Comment on above: Performed By: #### 8 4511 ####[facility] [place] [address], [facility] Oxygen saturation in Blood 97.1 % High 94.0-97.0 [facility] Comment on above: Performed By: #### 8 4511 ####[facility] [place] [address], [facility] PCO2 34 mmHg Low 35-45 [facility] Comment on above: Performed By: #### 8 4511 ####[facility] [place] [address], [facility] PEEP 8.0 CMH20 Normal [facility] Comment on above: Performed By: #### 8 4511 ####[facility] [place] [address], [facility] pH (Bld) 7.38 [pH] Normal 7.35-7.45 [facility] Comment on above: Performed By: #### 8 4511 ####[facility] [place] [address], [facility] PRESSURE SUPPORT 10 Normal [facility] Comment on above: Performed By: #### 8 4511 ####[facility] [place] [address], [facility] Respiratory rate 18 /min Normal [facility] Comment on above: Performed By: #### 8 4511 ####[facility] [place] [address], [facility] TIDAL VOLUME (VT) CC 700 Normal [facility] Comment on above: Performed By: #### 8 4511 ####[facility] [place] [address], [facility] BASE EXCESS -8 mmol/L Low -2-3 [facility] Comment on above: Performed By: #### 8 4511 ####[facility] [place] [address], [facility] DELIVERY SYSTEMS MV Normal [facility] Comment on above: Performed By: #### 8 4511 ####[facility] [place] [address], [facility] FIO2 80 % Normal [facility] Comment on above: Performed By: #### 8 4511 ####[facility] [place] [address], [facility] HCO3 (Bld) [Moles/Vol] 18 mmol/L Low 21-28 [facility] Comment on above: Performed By: #### 8 4511 ####[facility] [place] [address], [facility] IONIZED CALCIUM 1.06 mmol/L Low 1.13-1.32 [facility] Comment on above: Performed By: #### 8 4511 ####[facility] [place] [address], [facility] MIN VOLUME 16.6 Normal [facility] Comment on above: Performed By: #### 8 4511 ####[facility] [place] [address], [place] MODALITY SIMV Normal [facility] Comment on above: Performed By: #### 8 4511 ####[facility] [place] [address], [place] Oxygen (Bld) [Partial pressure] 86 mm[Hg] Normal 83-108 [facility] Comment on above: Performed By: #### 8 4511 ####[facility] [place] [address], [place] Oxygen saturation in Blood 96.6 % Normal 94.0-97.0 [facility] Comment on above: Performed By: #### 8 4511 ####[facility] [place] [address], [place] PCO2 34 mmHg Low 35-45 [facility] Comment on above: Performed By: #### 8 4511 ####[facility] [place] [address], [place] PEEP 8.0 CMH20 Normal [facility] Comment on above: Performed By: #### 8 4511 ####[facility] [place] [address], [place] PF RATIO 108 mmHg Normal [facility] Comment on above: Performed By: #### 8 4511 ####[facility] [place] [address], [place] pH (Bld) 7.32 [pH] Low 7.35-7.45 [facility] Comment on above: Performed By: #### 8 4511 ####[facility] [place] [address], [place] PRESSURE SUPPORT 10 Normal [facility] Comment on above: Performed By: #### 8 4511 ####[facility] Respiratory rate 18 /min Normal [facility] Comment on above: Performed By: #### 8 4511 ####[facility] [place] [address], [facility] TIDAL VOLUME (VT) CC 700 Normal [facility] Comment on above: Performed By: #### 8 4511 ####[facility] BASIC METABOLIC PANELon - Calcium [Mass/Vol] 8.0 mg/dL Low 8.6-10.3 [facility] Comment on above: Order Comment: No: D o not add to previous draw Performed By: #### 0 0071, 23053 ####[place] [address] [place] [address], [facility] Chloride [Moles/Vol] 107 mmol/L Normal 98-107 [facility] Comment on above: Order Comment: No: D o not add to previous draw Performed By: #### 0 0071, 98345 ####[facility] [place] [address], [facility] CO2 [Moles/Vol] 26 mmol/L Normal 21-31 The [facility] Comment on above: Order Comment: No: D o not add to previous draw Performed By: #### 0 0071, 74714 ####[facility] [place] [address], [facility] Creatinine [Mass/Vol] 0.90 mg/dL Normal 0.70-1.30 [facility] Comment on above: Order Comment: No: D o not add to previous draw Performed By: #### 0 0071, 27464 ####[facility] [place] [address], [facility] GFR/1.73 sq M.predicted among blacks MDRD (S/P/Bld) [Vol rate/Area] mL/min/{1.73_m2} Normal >60 [facility] Comment on above: Order Comment: No: D o not add to previous draw Result Comment: Calc ulation may not be valid for patients over 70 years Performed By: #### 0 0071, 21912 ####[facility] [place] [address], [facility] GFR/1.73 sq M.predicted among non-blacks MDRD (S/P/Bld) [Vol rate/Area] mL/min/{1.73_m2} Normal >60 [facility] Comment on above: Order Comment: No: D o not add to previous draw Result Comment: Calc ulation may not be valid for patients over 70 years Performed By: #### 0 0071, 05759 ####[facility] [facility] [place] [address], [place] Glucose [Mass/Vol] 126 mg/dL High 70-100 [facility] Comment on above: Order Comment: No: D o not add to previous draw Performed By: #### 0 0071, 86561 ####[facility] [facility] [place] [address], [facility] Potassium [Moles/Vol] 3.8 mmol/L Normal 3.5-5.1 [facility] Comment on above: Order Comment: No: D o not add to previous draw Performed By: #### 0 0071, 05227 ####[facility] [place] [address], [place] Sodium [Moles/Vol] 136 mmol/L Normal 136-145 [facility] Comment on above: Order Comment: No: D o not add to previous draw Performed By: #### 0 0071, 99644 ####[facility] [place] [address], [place] Urea nitrogen [Mass/Vol] 21 mg/dL Normal 7-25 [facility] Comment on above: Order Comment: No: D o not add to previous draw Performed By: #### 0 0071, 05103 ####[facility] [place] [address], [place] Calcium [Mass/Vol] 7.8 mg/dL Low 8.6-10.[address] [facility] Comment on above: Order Comment: post op day 1No: Do not add to previous draw Performed By: #### 1 69, 61663 ####[facility] [place] [address], [place] Chloride [Moles/Vol] 103 mmol/L Normal 98-107 [facility] Comment on above: Order Comment: post op day 1No: Do not add to previous draw Performed By: #### 1 69, 68104 ####[facility] [place] [address], [place] CO2 [Moles/Vol] 20 mmol/L Low 21-31 [facility] Comment on above: Order Comment: post op day 1No: Do not add to previous draw Performed By: #### 1 69, 56374 ####[facility] [place] [address], [facility] Creatinine [Mass/Vol] 1.25 mg/dL Normal 0.70-1.30 [facility] Comment on above: Order Comment: post op day 1No: Do not add to previous draw Performed By: #### 1 69, 11179 ####[facility] [place] [address], [place] eGFR- non- 56 ml/min/1.73sq m Abnormal >60 [facility] Comment on above: Order Comment: post op day 1No: Do not add to previous draw Result Comment: Calc ulation may not be valid for patients over 70 years Performed By: #### 1 69, 53759 ####[facility] [place] [address], [place] GFR/1.73 sq M.predicted among blacks MDRD (S/P/Bld) [Vol rate/Area] mL/min/{1.73_m2} Normal >60 [facility] Comment on above: Order Comment: post op day 1No: Do not add to previous draw Result Comment: Calc ulation may not be valid for patients over 70 years Performed By: #### 1 0, 84411 ####[facility] [place] [address], [facility] Glucose [Mass/Vol] 331 mg/dL High 70-100 [facility] Comment on above: Order Comment: post op day 1No: Do not add to previous draw Performed By: #### 1 69, 44485 ####[facility] [place] [address], [facility] Potassium [Moles/Vol] 3.2 mmol/L Low 3.5-5.1 [facility] Comment on above: Order Comment: post op day 1No: Do not add to previous draw Performed By: #### 1 69, 64721 ####[facility] [facility] [place] [address], [facility] Sodium [Moles/Vol] 135 mmol/L Low 136-145 [facility] Comment on above: Order Comment: post op day 1No: Do not add to previous draw Performed By: #### 1 69, 21746 ####[facility] [place] [address], [facility] Urea nitrogen [Mass/Vol] 24 mg/dL Normal 7-25 [facility] Comment on above: Order Comment: post op day 1No: Do not add to previous draw Performed By: #### 1 69, 48488 ####[facility] [place] [address], [facility] CBC COMPLETE BLOOD COUNTon 0 8- Erythrocyte distribution width (RBC) [Ratio] 14.6 % Normal 11.5-15.0 [facility] Comment on above: Order Comment: post op day 1No: Do not add to previous draw Performed By: #### 5 0608 ####[facility] [facility] [place] [address], [facility] Hematocrit (Bld) [Volume fraction] 30.5 % Low 39.0-50.0 [facility] Comment on above: Order Comment: post op day 1No: Do not add to previous draw Performed By: #### 5 0608 ####[facility] [facility].[address] Hemoglobin (Bld) [Mass/Vol] 10.2 g/dL Low 13.0-17.0 [facility] Comment on above: Order Comment: post op day 1No: Do not add to previous draw Performed By: #### 5 0608 ####[facility] [facility].[address] MCH (RBC) [Entitic mass] 30.9 pg Normal 27.0-33.0 [facility] Comment on above: Order Comment: post op day 1No: Do not add to previous draw Performed By: #### 5 0608 ####[facility] [facility].[address] MCHC (RBC) [Mass/Vol] 33.4 g/dL Normal 32.0-35.0 [facility] Comment on above: Order Comment: post op day 1No: Do not add to previous draw Performed By: #### 5 0608 ####[facility] [facility] [place] [address], [facility] MCV (RBC) [Entitic vol] 92.4 fL Normal 82.0-98.0 [facility] Comment on above: Order Comment: post op day 1No: Do not add to previous draw Performed By: #### 5 0608 ####[facility] [facility] [place] [address], [facility] Nucleated RBC/100 WBC (Bld) [Ratio] 0 % Normal 0-0 [facility] Comment on above: Order Comment: post op day 1No: Do not add to previous draw Performed By: #### 5 0608 ####[facility] [place] [address], [facility] PLAT CNT 232 10*3/uL Normal 150-400 [facility] Comment on above: Order Comment: post op day 1No: Do not add to previous draw Performed By: #### 5 0608 ####[facility] [facility] [place] [address], [facility] RBC (Bld) [#/Vol] 3.30 10*6/uL Low 4.20-5.70 The [facility] Comment on above: Order Comment: post op day 1No: Do not add to previous draw Performed By: #### 5 0608 ####[facility] [facility] [place] [address], [facility] WBC (Bld) [#/Vol] 17.37 10*3/uL High 4.00-10.60 [facility] Comment on above: Order Comment: post op day 1No: Do not add to previous draw Performed By: #### 5 0608 ####[facility] [facility] [place] [address], [facility] CBC W/DIFFon 04-09-2021 ABS IMM GRANS 0.1 10*3/uL Normal 0.0-0.2 The [facility] Comment on above: Order Comment: No: D o not add to previous draw Performed By: #### 5 0103 ####[facility] [facility] [place] [address], [facility] ABS NEUTROPHILS 8.3 10*3/uL High 1.6-7.6 [facility] Comment on above: Order Comment: No: D o not add to previous draw Performed By: #### 5 0103 ####[facility] [facility] [place] [address], [facility] Basophils (Bld) [#/Vol] 0.0 10*3/uL Normal 0.0-0.2 [facility] Comment on above: Order Comment: No: D o not add to previous draw Performed By: #### 5 0103 ####[facility] [facility] [place] [address], [facility] Basophils/100 WBC (Bld) 0.1 % Normal 0.0-1.0 [facility] Comment on above: Order Comment: No: D o not add to previous draw Performed By: #### 5 3 ####[facility] [place] [address], [facility] Eosinophils (Bld) [#/Vol] 0.0 10*3/uL Normal 0.0-0.5 [facility] Comment on above: Order Comment: No: D o not add to previous draw Performed By: #### 5 3 ####[facility] [place] [address], [facility] Eosinophils/100 WBC (Bld) 0.0 % Normal 0.0-6.0 [facility] Comment on above: Order Comment: No: D o not add to previous draw Performed By: #### 5 3 ####[facility] [facility].[address] Erythrocyte distribution width (RBC) [Ratio] 14.4 % Normal 11.5-15.0 [facility] Comment on above: Order Comment: No: D o not add to previous draw Performed By: #### 5 0103 ####[facility] [place] [address], [facility] Hematocrit (Bld) [Volume fraction] 28.9 % Low 39.0-50.0 [facility] Comment on above: Order Comment: No: D o not add to previous draw Performed By: #### 5 0103 ####[facility] Hemoglobin (Bld) [Mass/Vol] 9.6 g/dL Low 13.0-17.0 [facility] Comment on above: Order Comment: No: D o not add to previous draw Performed By: #### 5 0103 ####[facility] [place] [address], [facility] IMMATURE GRANS 0.5 % Normal 0.0-1.0 The [facility] Comment on above: Order Comment: No: D o not add to previous draw Performed By: #### 5 0103 ####[facility] Lymphocytes (Bld) [#/Vol] 1.3 10*3/uL Normal 1.2-4.0 [facility] Comment on above: Order Comment: No: D o not add to previous draw Performed By: #### 5 0103 ####[facility] [place] [address] Lymphocytes/100 WBC (Bld) 12.1 % Low 20.0-45.0 [facility] Comment on above: Order Comment: No: D o not add to previous draw Performed By: #### 5 0103 ####[facility] MCH (RBC) [Entitic mass] 30.6 pg Normal 27.0-33.0 [facility] Comment on above: Order Comment: No: D o not add to previous draw Performed By: #### 5 0103 ####[facility] [place] [address] MCHC (RBC) [Mass/Vol] 33.2 g/dL Normal 32.0-35.0 [facility] Comment on above: Order Comment: No: D o not add to previous draw Performed By: #### 5 0103 ####[facility] [facility] [place] [address], [facility] MCV (RBC) [Entitic vol] 92.0 fL Normal 82.0-98.0 [facility] Comment on above: Order Comment: No: D o not add to previous draw Performed By: #### 5 0103 ####[facility] [facility] [place] [address], [facility] Monocytes (Bld) [#/Vol] 1.2 10*3/uL High 0.1-1.0 [facility] Comment on above: Order Comment: No: D o not add to previous draw Performed By: #### 5 0103 ####[facility] [facility] [place] [address], [facility] MONOS 10.9 % Normal 5.0-12.0 [facility] Comment on above: Order Comment: No: D o not add to previous draw Performed By: #### 5 0103 ####[facility] [facility] [place] [address], [facility] Neutrophils/100 WBC (Bld) 76.4 % High 40.0-72.0 [facility] Comment on above: Order Comment: No: D o not add to previous draw Performed By: #### 5 3 ####[facility] [facility] [place] [address], [facility] Nucleated RBC/100 WBC (Bld) [Ratio] 0 % Normal 0-0 [facility] Comment on above: Order Comment: No: D o not add to previous draw Performed By: #### 5 0103 ####[facility] [facility] [place] [address], [facility] PLAT CNT 175 10*3/uL Normal 150-400 [facility] Comment on above: Order Comment: No: D o not add to previous draw Performed By: #### 5 3 ####[facility] [place] [address], [facility] RBC (Bld) [#/Vol] 3.14 10*6/uL Low 4.20-5.70 The [facility] Comment on above: Order Comment: No: D o not add to previous draw Performed By: #### 5 0103 ####[facility] [place] [address], [place] WBC (Bld) [#/Vol] 10.92 10*3/uL High 4.00-10.60 [facility] Comment on above: Order Comment: No: D o not add to previous draw Performed By: #### 5 0103 ####[facility] [facility] [place] [address], [place] LACTATE BLOODon 04-09-2021 Lactate [Moles/Vol] 0.9 mmol/L Normal .5-2.2 The [facility] Comment on above: Order Comment: No: D o not add to previous draw Performed By: #### 1 0054 ####[facility] [facility] [place] [address], [facility] Lactate [Moles/Vol] 3.8 mmol/L High .5-2.2 The [facility] Comment on above: Order Comment: No: D o not add to previous draw Result Comment: M-CR ITICAL RESULT(S) REVIEWED, CALLED TO AND READ BACK BY [employer] DRIVER [id number] Performed By: #### 1 0054 ####[facility] [place] [address], [place] Lactate [Moles/Vol] 7.1 mmol/L Critically high .5-2.2 [facility] Comment on above: Order Comment: post op day 1No: Do not add to previous draw Result Comment: M-HI EVIOUS CRITICAL RESULT Performed By: #### 1 0054 ####[facility] [place] [address], [place] MAGNESIUM BLOODon 04-09-2021 Magnesium [Mass/Vol] 2.3 mg/dL Normal 1.9-2.7 [facility] Comment on above: Order Comment: No: D o not add to previous draw Performed By: #### 1 0070, 42600 ####[facility] [place] [address], [place] Magnesium [Mass/Vol] 2.2 mg/dL Normal 1.9-2.7 [facility] Comment on above: Order Comment: added from prior Performed By: #### 0 0071, 30820 ####[facility] [place] [address], [place] Magnesium [Mass/Vol] 2.4 mg/dL Normal 1.9-2.7 [facility] Comment on above: Order Comment: post op day 1No: Do not add to previous draw Performed By: #### 1 0070, 91007 ####[facility] [place] [address], [place] Operative Reporton Operative Report Normal [facility] POC GLUCOSE LABon 04-09-2021 Glucose [Mass/Vol] 162 mg/dL High 70-100 [facility] Comment on above: Performed By: #### 8 5499 ####[facility] [place] [address], [place] Glucose [Mass/Vol] 128 mg/dL High 70-100 The [facility] Comment on above: Performed By: #### 8 5499 ####[facility] [place] [address], [place] Glucose [Mass/Vol] 117 mg/dL High 70-100 [facility] Comment on above: Performed By: #### 8 5499 ####[facility] [place] [address], [place] Glucose [Mass/Vol] 110 mg/dL High 70-100 [facility] Comment on above: Performed By: #### 8 5499 ####[facility] [place] [address], [place] Glucose [Mass/Vol] 65 mg/dL Low 70-100 [facility] Comment on above: Performed By: #### 8 5499 ####[facility] [place] [address], [place] Glucose [Mass/Vol] 86 mg/dL Normal 70-100 [facility] Comment on above: Performed By: #### 8 5499 ####[facility] [place] [address], [place] Glucose [Mass/Vol] 127 mg/dL High 70-100 [facility] Comment on above: Performed By: #### 8 5499 ####[facility] [place] [address], [place] Glucose [Mass/Vol] 230 mg/dL High 70-100 [facility] Comment on above: Performed By: #### 8 5499 ####[facility] [place] [address], [place] Glucose [Mass/Vol] 244 mg/dL High 70-100 [facility] Comment on above: Performed By: #### 8 5499 ####[facility] [place] [address], [place] Glucose [Mass/Vol] 283 mg/dL High 70-100 [facility] Comment on above: Performed By: #### 8 5499 ####[facility] [place] [address], [place] Glucose [Mass/Vol] 326 mg/dL High 70-100 [facility] Comment on above: Performed By: #### 8 5499 ####[facility] [place] [address], [place] Glucose [Mass/Vol] 347 mg/dL High 70-100 [facility] Comment on above: Performed By: #### 8 5499 ####[facility] [place] [address], [place] Glucose [Mass/Vol] 258 mg/dL High 70-100 [facility] Comment on above: Performed By: #### 8 5499 ####[facility] [place] [address], [place] Glucose [Mass/Vol] 334 mg/dL High 70-100 [facility] Comment on above: Performed By: #### 8 5499 ####[facility] [place] [address], [place] Glucose [Mass/Vol] 338 mg/dL High 70-100 [facility] Comment on above: Performed By: #### 8 5499 ####[facility] [place] [address], [place] Glucose [Mass/Vol] 321 mg/dL High 70-100 [facility] Comment on above: Performed By: #### 8 5499 ####[facility] [place] [address], [place] Glucose [Mass/Vol] 302 mg/dL High 70-100 [facility] Comment on above: Performed By: #### 8 5499 ####[facility] [place] [address], [place] PORTABLE CHEST 1 VIEWon 03-24 PORTABLE CHEST 1 VIEW Normal [facility] Comment on above: Order Comment: Check Chest Tube Position POTASSIUM BLOODon 04-09-2021 Potassium [Moles/Vol] 4.6 mmol/L Normal 3.5-5.1 [facility] Comment on above: Order Comment: No: D o not add to previous draw Performed By: #### 1 0070, 87367 ####[facility] PROTHROMBIN TIMEon 1 INR Coag (PPP) [Relative time] 1.22 {INR} High 0.91-1.16 [facility] Comment on above: Order [...] OF ACTION, CLINICALEFFECTIVENESS, AND OPTIMAL THERAPEUTIC RANGE. [id number]. Performed By: #### 5 7307, 90909 ####[facility] [facility] [place] [address], [facility] PT Coag (PPP) [Time] 15.4 s High 12.3-14.8 [facility] Comment on above: Order Comment: post op day 1No: Do not add to previous draw Result Comment: ALL RESULTS MUST BE INTERPRETED WITH RESPECT TO BLOOD DRAWING ARTIFACTOR DILUTION ERROR OF ANTICOAGULANT AT THE TIME OF SAMPLING. Performed By: #### 5 7307, 89623 ####[facility] [place] [address], [place] ACTIVATED CLOTTING TIMEon ACTIVATED CLOTTING TIME 121 sec Normal 82-152 [facility] Comment on above: Performed By: #### 3 0739 ####[facility] [place] [address], [place] ACTIVATED CLOTTING TIME 305 sec High 82-152 [facility] Comment on above: Performed By: #### 3 0739 ####[facility] [place] [address], [place] ACTIVATED CLOTTING TIME 286 sec High 82-152 [facility] Comment on above: Performed By: #### 3 0739 ####[facility] [place] [address], [place] ACTIVATED CLOTTING TIME 279 sec High 82-152 [facility] Comment on above: Performed By: #### 3 0739 ####[facility] [place] [address], [place] ACTIVATED CLOTTING TIME 325 sec High 82-152 [facility] Comment on above: Performed By: #### 3 0739 ####[facility] [place] [address], [place] ACTIVATED CLOTTING TIME 184 sec High 82-152 [facility] Comment on above: Performed By: #### 3 0739 ####[facility] [place] [address], [place] ACTIVATED CLOTTING TIME 121 sec Normal 82-152 [facility] Comment on above: Performed By: #### 3 0739 ####[facility] [place] [address], [place] APTTon 04-08-2021 aPTT Coag (Bld) [Time] 30.4 s Normal 25.0-35.0 [facility] Comment on above: Order [...] THIS PURPOSE. Performed By: #### 5 6101, 15821 ####[facility] aPTT Coag (Bld) [Time] 30.6 s Normal 25.0-35.0 [facility] Comment on above: Result Comment: ALL [...] THIS PURPOSE. Performed By: #### 5 7307, 51767, 30768 ####[facility] ARTERIAL BLOOD GAS WITH ICAo n 04-08-2021 BASE EXCESS -4 mmol/L Low -2-3 [facility] Comment on above: Order Comment: on ar rival to CVU Performed By: #### 8 4511 ####[facility] DELIVERY SYSTEMS MV Normal [facility] Comment on above: Order Comment: on ar rival to CVU Performed By: #### 8 4511 ####[facility] [place] [address], [facility] FIO2 70 % Normal [facility] Comment on above: Order Comment: on ar rival to CVU Performed By: #### 8 4511 ####[facility] [place] [address], [facility] HCO3 (Bld) [Moles/Vol] 21 mmol/L Normal 21-28 [facility] Comment on above: Order Comment: on ar rival to CVU Performed By: #### 8 4511 ####[facility] [place] [address], [facility] IONIZED CALCIUM 1.09 mmol/L Low 1.13-1.32 [facility] Comment on above: Order Comment: on ar rival to CVU Performed By: #### 8 4511 ####[facility] [place] [address], [facility] MIN VOLUME 14.2 Normal [facility] Comment on above: Order Comment: on ar rival to CVU Result Comment: Resu lt changed by DOTTY on 04/08/2021 19:16. The previous value was16.0. Performed By: #### 8 4511 ####[facility] [place] [address], [facility] MODALITY SIMV Normal [facility] Comment on above: Order Comment: on ar rival to CVU Performed By: #### 8 4511 ####[facility] [place] [address], [facility] Oxygen (Bld) [Partial pressure] 69 mm[Hg] Low 83-108 [facility] Comment on above: Order Comment: on ar rival to CVU Performed By: #### 8 4511 ####[facility] [place] [address], [facility] Oxygen saturation in Blood 93.8 % Low 94.0-97.0 [facility] Comment on above: Order Comment: on ar rival to CVU Performed By: #### 8 4511 ####[facility] [place] [address], [facility] PCO2 36 mmHg Normal 35-45 [facility] Comment on above: Order Comment: on ar rival to CVU Performed By: #### 8 4511 ####[facility] [place] [address], [facility] PEEP 8.0 CMH20 Normal [facility] Comment on above: Order Comment: on ar rival to CVU Performed By: #### 8 4511 ####[facility] [place] [address], [place] PF RATIO 99 mmHg Normal [facility] Comment on above: Order Comment: on ar rival to CVU Performed By: #### 8 4511 ####[facility] [place] [address], [facility] pH (Bld) 7.37 [pH] Normal 7.35-7.45 [facility] Comment on above: Order Comment: on ar rival to CVU Performed By: #### 8 4511 ####[facility] [place] [address], [facility] PRESSURE SUPPORT 10 Normal [facility] Comment on above: Order Comment: on ar rival to CVU Performed By: #### 8 4511 ####[facility] [place] [address], [facility] Respiratory rate 16 /min Normal [facility] Comment on above: Order Comment: on ar rival to CVU Performed By: #### 8 4511 ####[facility] [place] [address], [facility] TIDAL VOLUME (VT) CC 700 Normal [facility] Comment on above: Order Comment: on ar rival to CVU Performed By: #### 8 4511 ####[facility] [place] [address], [place] BASE EXCESS -4 mmol/L Low -2-3 [facility] Comment on above: Performed By: #### 8 4511 ####[facility] DELIVERY SYSTEMS VENT Normal [facility] Comment on above: Performed By: #### 8 4511 ####[facility] [place] [address], [facility] FIO2 70 % Normal [facility] Comment on above: Performed By: #### 8 4511 ####[facility] HCO3 (Bld) [Moles/Vol] 23 mmol/L Normal 21-28 [facility] Comment on above: Performed By: #### 8 4511 ####[facility] [facility].[address] IONIZED CALCIUM 1.14 mmol/L Normal 1.13-1.32 [facility] Comment on above: Performed By: #### 8 4511 ####[facility] [facility] [place] [address], [facility] MIN VOLUME 9.0 Normal [facility] Comment on above: Performed By: #### 8 4511 ####[facility] [facility] [place] [address], [facility] MODALITY SIMV Normal [facility] Comment on above: Performed By: #### 8 4511 ####[facility] [facility].[address] Oxygen (Bld) [Partial pressure] 70 mm[Hg] Low 83-108 [facility] Comment on above: Performed By: #### 8 4511 ####[facility] [place] [address], [facility] Oxygen saturation in Blood 92.5 % Low 94.0-97.0 [facility] Comment on above: Performed By: #### 8 4511 ####[facility] [facility] [place] [address], [facility] PCO2 48 mmHg High 35-45 [facility] Comment on above: Performed By: #### 8 4511 ####[facility] [place] [address], [facility] PEEP 8.0 CMH20 Normal [facility] Comment on above: Performed By: #### 8 4511 ####[facility] [place] [address], [facility] PF RATIO 100 mmHg Normal [facility] Comment on above: Performed By: #### 8 4511 ####[facility] [place] [address], [facility] pH (Bld) 7.28 [pH] Low 7.35-7.45 [facility] Comment on above: Performed By: #### 8 4511 ####[facility] [place] [address], [facility] PRESSURE SUPPORT 10 Normal [facility] Comment on above: Performed By: #### 8 4511 ####[facility] [place] [address], [facility] Respiratory rate 14 /min Normal [facility] Comment on above: Performed By: #### 8 4511 ####[facility] TIDAL VOLUME (VT) CC 550 Normal [facility] Comment on above: Performed By: #### 8 4511 ####[facility] [place] [address], [facility] BASIC METABOLIC PANELon - Calcium [Mass/Vol] 7.7 mg/dL Low 8.6-10.3 [facility] Comment on above: Order Comment: No: D o not add to previous draw Performed By: #### 1 0070, 38737, 35920 ####[facility] [place] [address], [facility] Chloride [Moles/Vol] 103 mmol/L Normal 98-107 [facility] Comment on above: Order Comment: No: D o not add to previous draw Performed By: #### 1 0070, 49494, 42946 ####[facility] [place] [address], [place] CO2 [Moles/Vol] 21 mmol/L Normal 21-31 The [facility] Comment on above: Order Comment: No: D o not add to previous draw Performed By: #### 1 0070, 24196, 38461 ####[facility] [facility] [place] [address], [facility] Creatinine [Mass/Vol] 1.15 mg/dL Normal 0.70-1.30 [facility] Comment on above: Order Comment: No: D o not add to previous draw Performed By: #### 1 0070, 24103, 94148 ####[facility] [facility] [place] [place] [address], [facility] GFR/1.73 sq M.predicted among blacks MDRD (S/P/Bld) [Vol rate/Area] mL/min/{1.73_m2} Normal >60 [facility] Comment on above: Order Comment: No: D o not add to previous draw Result Comment: Calc ulation may not be valid for patients over 70 years Performed By: #### 1 0070, 45068, 67936 ####[facility] [facility] [place] [place] [address], [facility] GFR/1.73 sq M.predicted among non-blacks MDRD (S/P/Bld) [Vol rate/Area] mL/min/{1.73_m2} Normal >60 [facility] Comment on above: Order Comment: No: D o not add to previous draw Result Comment: Calc ulation may not be valid for patients over 70 years Performed By: #### 1 0070, 87667, 94667 ####[facility] [place] [address], [place] Glucose [Mass/Vol] 224 mg/dL High 70-100 [facility] Comment on above: Order Comment: No: D o not add to previous draw Performed By: #### 1 0070, 51885, 28281 ####[facility] [place] [address], [place] Potassium [Moles/Vol] 3.9 mmol/L Normal 3.5-5.1 [facility] Comment on above: Order Comment: No: D o not add to previous draw Performed By: #### 1 0070, 07922, 96455 ####[facility] [place] [address], [place] Sodium [Moles/Vol] 134 mmol/L Low 136-145 [facility] Comment on above: Order Comment: No: D o not add to previous draw Performed By: #### 1 0070, 19453, 47694 ####[facility] [place] [address], [place] Urea nitrogen [Mass/Vol] 22 mg/dL Normal 7-25 [facility] Comment on above: Order Comment: No: D o not add to previous draw Performed By: #### 1 0, 74545, 36423 ####[facility] [place] [address], [place] Calcium [Mass/Vol] 7.7 mg/dL Low 8.6-10.3 [facility] Comment on above: Performed By: #### 1 0070, 19326, 84470 ####[facility] [place] [address], [place] Chloride [Moles/Vol] 105 mmol/L Normal 98-107 [facility] Comment on above: Performed By: #### 1 0070, 19130, 27324 ####[facility] [place] [address], [place] CO2 [Moles/Vol] 24 mmol/L Normal 21-31 [facility] Comment on above: Performed By: #### 1 0070, 18333, 54525 ####[facility] [place] [address], [place] Creatinine [Mass/Vol] 0.81 mg/dL Normal 0.70-1.30 [facility] Comment on above: Performed By: #### 1 0, 77486, 61935 ####[facility] [place] [address], [place] GFR/1.73 sq M.predicted among blacks MDRD (S/P/Bld) [Vol rate/Area] mL/min/{1.73_m2} Normal >60 [facility] Comment on above: Result Comment: Calc ulation may not be valid for patients over 70 years Performed By: #### 1 0070, 01725, 97700 ####[facility] [place] [address], [place] GFR/1.73 sq M.predicted among non-blacks MDRD (S/P/Bld) [Vol rate/Area] mL/min/{1.73_m2} Normal >60 [facility] Comment on above: Result Comment: Calc ulation may not be valid for patients over 70 years Performed By: #### 1 0, 45447, 64582 ####[facility] [place] [address], [place] Glucose [Mass/Vol] 189 mg/dL High 70-[address] [facility] Comment on above: Performed By: #### 1 0070, 41265, 74088 ####[facility] [place] [address], [place] Potassium [Moles/Vol] 4.3 mmol/L Normal 3.5-5.1 [facility] Comment on above: Performed By: #### 1 0070, 56623, 49182 ####[facility] [place] [address], [place] Sodium [Moles/Vol] 133 mmol/L Low 136-145 [facility] Comment on above: Performed By: #### 1 0070, 72888, 89342 ####[facility] [place] [address], [place] Urea nitrogen [Mass/Vol] 20 mg/dL Normal 7-25 [facility] Comment on above: Performed By: #### 1 0070, 85251, 30591 ####[facility] [place] [address], [place] Calcium [Mass/Vol] 8.7 mg/dL Normal 8.6-10.3 [facility] Comment on above: Order Comment: No: D o not add to previous draw Performed By: #### 0 0071, 43024, 04601 ####[facility] [place] [address], [place] Chloride [Moles/Vol] 103 mmol/L Normal 98-107 [facility] Comment on above: Order Comment: No: D o not add to previous draw Performed By: #### 0 0071, 17593, 26300 ####[facility] [place] [address], [place] CO2 [Moles/Vol] 26 mmol/L Normal 21-31 The [facility] Comment on above: Order Comment: No: D o not add to previous draw Performed By: #### 0 0071, 17043, 99742 ####[facility] [place] [address], [place] Creatinine [Mass/Vol] 0.74 mg/dL Normal 0.70-1.30 [facility] Comment on above: Order Comment: No: D o not add to previous draw Performed By: #### 0 0071, 39274, 56078 ####[facility] [place] [address], [facility] GFR/1.73 sq M.predicted among blacks MDRD (S/P/Bld) [Vol rate/Area] mL/min/{1.73_m2} Normal >60 [facility] Comment on above: Order Comment: No: D o not add to previous draw Result Comment: Calc ulation may not be valid for patients over 70 years Performed By: #### 0 0071, 72688, 32051 ####[facility] [place] [address], [facility] GFR/1.73 sq M.predicted among non-blacks MDRD (S/P/Bld) [Vol rate/Area] mL/min/{1.73_m2} Normal >60 [facility] Comment on above: Order Comment: No: D o not add to previous draw Result Comment: Calc ulation may not be valid for patients over 70 years Performed By: #### 0 0071, 78057, 45672 ####[facility] [facility] [place] [address], [facility] Glucose [Mass/Vol] 107 mg/dL High 70-100 [facility] Comment on above: Order Comment: No: D o not add to previous draw Performed By: #### 0 0071, 30103, 47916 ####[facility] [place] [address], [facility] Potassium [Moles/Vol] 4.1 mmol/L Normal 3.5-5.1 [facility] Comment on above: Order Comment: No: D o not add to previous draw Performed By: #### 0 0071, 27945, 88179 ####[facility] [place] [address], [facility] Sodium [Moles/Vol] 133 mmol/L Low 136-145 [facility] Comment on above: Order Comment: No: D o not add to previous draw Performed By: #### 0 0071, 15155, 80050 ####[facility] [facility].[address] Urea nitrogen [Mass/Vol] 19 mg/dL Normal 7-25 [facility] Comment on above: Order Comment: No: D o not add to previous draw Performed By: #### 0 0071, 02331, 61736 ####[facility] [facility].[address] CBC COMPLETE BLOOD COUNTon 0 - Erythrocyte distribution width (RBC) [Ratio] 14.4 % Normal 11.5-15.0 [facility] Comment on above: Order Comment: No: D o not add to previous draw Performed By: #### 5 0608 ####[facility] Hematocrit (Bld) [Volume fraction] 33.4 % Low 39.0-50.0 [facility] Comment on above: Order Comment: No: D o not add to previous draw Performed By: #### 5 0608 ####[place] [address] Hemoglobin (Bld) [Mass/Vol] 10.9 g/dL Low 13.0-17.0 [facility] Comment on above: Order Comment: No: D o not add to previous draw Performed By: #### 5 0608 ####[facility] [facility].[address] MCH (RBC) [Entitic mass] 30.4 pg Normal 27.0-33.0 [facility] Comment on above: Order Comment: No: D o not add to previous draw Performed By: #### 5 0608 ####[facility] [facility] [place] [address], [facility] MCHC (RBC) [Mass/Vol] 32.6 g/dL Normal 32.0-35.0 [facility] Comment on above: Order Comment: No: D o not add to previous draw Performed By: #### 5 0608 ####[facility] [place] [address], [facility] MCV (RBC) [Entitic vol] 93.3 fL Normal 82.0-98.0 [facility] Comment on above: Order Comment: No: D o not add to previous draw Performed By: #### 5 0608 ####[facility] [address], [facility] Nucleated RBC/100 WBC (Bld) [Ratio] 0 % Normal 0-0 [facility] Comment on above: Order Comment: No: D o not add to previous draw Performed By: #### 5 0608 ####[facility] [facility] [place] [address], [facility] PLAT CNT 228 10*3/uL Normal 150-400 [facility] Comment on above: Order Comment: No: D o not add to previous draw Performed By: #### 5 0608 ####[facility] [facility] [place] [address], [facility] RBC (Bld) [#/Vol] 3.58 10*6/uL Low 4.20-5.70 The [facility] Comment on above: Order Comment: No: D o not add to previous draw Performed By: #### 5 0608 ####[facility] [place] [address], [facility] WBC (Bld) [#/Vol] 18.53 10*3/uL High 4.00-10.60 [facility] Comment on above: Order Comment: No: D o not add to previous draw Performed By: #### 5 0608 ####[facility] [place] [address], [facility] Erythrocyte distribution width (RBC) [Ratio] 14.6 % Normal 11.5-15.0 [facility] Comment on above: Performed By: #### 5 0608 ####[facility] [facility].[address] Hematocrit (Bld) [Volume fraction] 35.5 % Low 39.0-50.0 [facility] Comment on above: Performed By: #### 5 0608 ####[facility] [facility].[address] Hemoglobin (Bld) [Mass/Vol] 11.5 g/dL Low 13.0-17.0 [facility] Comment on above: Performed By: #### 5 0608 ####[address] MCH (RBC) [Entitic mass] 30.5 pg Normal 27.0-33.0 [facility] Comment on above: Performed By: #### 5 0608 ####[facility] [facility].[address] MCHC (RBC) [Mass/Vol] 32.4 g/dL Normal 32.0-35.0 [facility] Comment on above: Performed By: #### 5 0608 ####[place] [address] [facility].[address] MCV (RBC) [Entitic vol] 94.2 fL Normal 82.0-98.0 [facility] Comment on above: Performed By: #### 5 0608 ####[place] [address] [facility].[address] Nucleated RBC/100 WBC (Bld) [Ratio] 0 % Normal 0-0 [facility] Comment on above: Performed By: #### 5 0608 ####[address] PLAT CNT 219 10*3/uL Normal 150-400 [facility] Comment on above: Performed By: #### 5 0608 ####[facility] [facility] [place] [address], [facility] RBC (Bld) [#/Vol] 3.77 10*6/uL Low 4.20-5.70 [facility] Comment on above: Performed By: #### 5 0608 ####[facility] [facility] [place] [address], [facility] WBC (Bld) [#/Vol] 14.37 10*3/uL High 4.00-10.60 [facility] Comment on above: Performed By: #### 5 0608 ####[facility] [facility].[address] Erythrocyte distribution width (RBC) [Ratio] 14.7 % Normal 11.5-15.0 [facility] Comment on above: Order Comment: No: D o not add to previous draw Performed By: #### 5 0608 ####[facility] [facility].[address] Hematocrit (Bld) [Volume fraction] 40.7 % Normal 39.0-50.0 [facility] Comment on above: Order Comment: No: D o not add to previous draw Performed By: #### 5 0608 ####[facility] [facility].[address] Hemoglobin (Bld) [Mass/Vol] 13.5 g/dL Normal 13.0-17.0 [facility] Comment on above: Order Comment: No: D o not add to previous draw Performed By: #### 5 0608 ####[facility] MCH (RBC) [Entitic mass] 30.5 pg Normal 27.0-33.0 [facility] Comment on above: Order Comment: No: D o not add to previous draw Performed By: #### 5 0608 ####[facility] MCHC (RBC) [Mass/Vol] 33.2 g/dL Normal 32.0-35.0 [facility] Comment on above: Order Comment: No: D o not add to previous draw Performed By: #### 5 0608 ####[facility] [facility].[address] MCV (RBC) [Entitic vol] 92.1 fL Normal 82.0-98.0 [facility] Comment on above: Order Comment: No: D o not add to previous draw Performed By: #### 5 0608 ####[facility] Nucleated RBC/100 WBC (Bld) [Ratio] 0 % Normal 0-0 [facility] Comment on above: Order Comment: No: D o not add to previous draw Performed By: #### 5 0608 ####[facility] [facility].[address] PLAT CNT 233 10*3/uL Normal 150-400 [facility] Comment on above: Order Comment: No: D o not add to previous draw Performed By: #### 5 0608 ####[facility] [place] [address].[address] RBC (Bld) [#/Vol] 4.42 10*6/uL Normal 4.20-5.70 [facility] Comment on above: Order Comment: No: D o not add to previous draw Performed By: #### 5 0608 ####[facility] [place] [address] WBC (Bld) [#/Vol] 7.11 10*3/uL Normal 4.00-10.60 [facility] Comment on above: Order Comment: No: D o not add to previous draw Performed By: #### 5 0608 ####[facility] [place] [address], [facility] COOXIMETRYon 04-08-2021 COHB 1 % Normal [facility] Comment on above: Performed By: #### 7 0207 ####[facility] [place] [address], [facility] METHB 1 % Normal [facility] Comment on above: Performed By: #### 7 0207 ####[facility] Oxygen saturation in Blood 77.5 % High 65.0-75.0 [facility] Comment on above: Performed By: #### 7 0207 ####[facility] [facility].[address] THB 10.7 g/dL Normal [facility] Comment on above: Performed By: #### 7 0207 ####[facility] [facility] [place] [address], [facility] FERRITINon 04-08-2021 Ferritin [Mass/Vol] 116 ng/mL Normal 24-336 [facility] Comment on above: Performed By: #### 1 0070, 01587, 01835 ####[facility] [place] [address], [facility] FIBRINOGENon 04-08-2021 FIBRINOGEN 362 mg/dL Normal 150-425 [facility] Comment on above: Performed By: #### 5 7307, 36837, 91936 ####[facility] [facility] [place] [address], [facility] LACTATE BLOODon 04-08-2021 Lactate [Moles/Vol] 3.7 mmol/L High .5-2.2 [facility] Comment on above: Order Comment: No: D o not add to previous draw Result Comment: M-CR ITICAL RESULT(S) REVIEWED, CALLED TO AND READ BACK BY Kleber TRAN at 2203. Performed By: #### 1 0054 ####[facility] [place] [address], [facility] Lactate [Moles/Vol] 2.5 mmol/L High .5-2.2 [facility] Comment on above: Order Comment: No: D o not add to previous draw Performed By: #### 1 0054 ####[facility] [place] [address], [place] Lactate [Moles/Vol] 1.0 mmol/L Normal .5-2.2 [facility] Comment on above: Performed By: #### 1 0054 ####[facility] [facility] [place] [address], [place] MAGNESIUM BLOODon 04-08-2021 Magnesium [Mass/Vol] 2.3 mg/dL Normal 1.9-2.7 [facility] Comment on above: Order Comment: No: D o not add to previous draw Performed By: #### 1 0070, 03103, 13247 ####[facility] [place] [address], [place] Magnesium [Mass/Vol] 1.9 mg/dL Normal 1.9-2.7 [facility] Comment on above: Performed By: #### 1 0070, 45537, 03129 ####[facility] [place] [address], [place] Magnesium [Mass/Vol] 2.2 mg/dL Normal 1.9-2.7 [facility] Comment on above: Order Comment: No: D o not add to previous draw Performed By: #### 0 0071, 87840, 76685 ####[facility] [place] [address], [place] PERFUSION BLOOD PANELon 03-24 BASE EXCESS -3.0 mmol/L Low -2.0-3.[address] [facility] Comment on above: Performed By: #### 3 0738 ####[facility] [place] [address], [facility] Glucose [Mass/Vol] 193 mg/dL High 70-[address] [facility] Comment on above: Performed By: #### 3 0738 ####[facility] [place] [address], [facility] Hematocrit (Bld) [Volume fraction] 36 % Low 38-51 [facility] Comment on above: Performed By: #### 3 0738 ####[facility] [place] [address], [facility] Hemoglobin (Bld) [Mass/Vol] 12.2 g/dL Normal 12.0-17.0 [facility] Comment on above: Performed By: #### 3 0738 ####[facility] [facility] [place] [address], [facility] IONIZED CALCIUM 1.22 mmol/L Normal 1.12-1.32 [facility] Comment on above: Performed By: #### 3 0738 ####[facility] [place] [address], [facility] Oxygen (Bld) [Partial pressure] 131.0 mm[Hg] High 80.0-105.0 [facility] Comment on above: Performed By: #### 3 0738 ####[facility] [place] [address], [facility] PCO2 51.6 mmHg High 35.0-45.0 [facility] Comment on above: Performed By: #### 3 0738 ####[facility] [place] [address], [facility] pH (Bld) 7.28 [pH] Low 7.35-7.45 [facility] Comment on above: Performed By: #### 3 0738 ####[facility] [place] [address], [facility] Potassium [Moles/Vol] 4.4 mmol/L Normal 3.5-4.9 [facility] Comment on above: Performed By: #### 3 0738 ####[facility] [place] [address], [facility] Sodium [Moles/Vol] 139 mmol/L Normal 138-146 The [facility] Comment on above: Performed By: #### 3 0738 ####[place] [address] [place] [address], [facility] BASE EXCESS -2.0 mmol/L Normal -2.0-3.0 [facility] Comment on above: Performed By: #### 3 0738 ####[place] [address] [place] [address], [facility] Glucose [Mass/Vol] 156 mg/dL High 70-[address] [facility] Comment on above: Performed By: #### 3 0738 ####[place] [address] Hematocrit (Bld) [Volume fraction] 36 % Low 38-51 [facility] Comment on above: Performed By: #### 3 0738 ####[facility] [place] [address], [facility] Hemoglobin (Bld) [Mass/Vol] 12.2 g/dL Normal 12.0-17.0 [facility] Comment on above: Performed By: #### 3 0738 ####[facility] [place] [address], [facility] IONIZED CALCIUM 1.17 mmol/L Normal 1.12-1.32 The [facility] Comment on above: Performed By: #### 3 0738 ####[facility] [place] [address], [facility] Oxygen (Bld) [Partial pressure] 196.0 mm[Hg] High 80.0-105.0 [facility] Comment on above: Performed By: #### 3 0738 ####[facility] [place] [address], [facility] PCO2 46.9 mmHg High 35.0-45.0 [facility] Comment on above: Performed By: #### 3 0738 ####[place] [address] [facility] [place] [address], [facility] pH (Bld) 7.33 [pH] Low 7.35-7.45 [facility] Comment on above: Performed By: #### 3 0738 ####[place] [address] [facility] [place] [address], [facility] Potassium [Moles/Vol] 4.5 mmol/L Normal 3.5-4.9 [facility] Comment on above: Performed By: #### 3 0738 ####[place] [address] [facility] [place] [address], [facility] Sodium [Moles/Vol] 139 mmol/L Normal 138-146 [facility] Comment on above: Performed By: #### 3 0738 ####[facility] [facility].[place] [id number], [facility] BASE EXCESS -1.0 mmol/L Normal -2.0-3.[address] [facility] Comment on above: Performed By: #### 3 0738 ####[facility] [id number], [facility] Glucose [Mass/Vol] 133 mg/dL High 70-105 [facility] Comment on above: Performed By: #### 3 0738 ####[facility] [place] [address], [facility] Hematocrit (Bld) [Volume fraction] 37 % Low 38-51 [facility] Comment on above: Performed By: #### 3 0738 ####[facility] [place] [address], [facility] Hemoglobin (Bld) [Mass/Vol] 12.6 g/dL Normal 12.0-17.0 [facility] Comment on above: Performed By: #### 3 0738 ####[place] [address] [facility] [place] [address], [facility] IONIZED CALCIUM 1.19 mmol/L Normal 1.12-1.32 [facility] Comment on above: Performed By: #### 3 0738 ####[place] [address] [facility] [place] [address], [facility] Oxygen (Bld) [Partial pressure] 184.0 mm[Hg] High 80.0-105.0 [facility] Comment on above: Performed By: #### 3 0738 ####[place] [address] [facility] [place] [address], [facility] PCO2 46.6 mmHg High 35.0-45.0 [facility] Comment on above: Performed By: #### 3 0738 ####[place] [address] [facility] [place] [address], [facility] pH (Bld) 7.34 [pH] Low 7.35-7.45 [facility] Comment on above: Performed By: #### 3 0738 ####[place] [address] [place] [address], [facility] Potassium [Moles/Vol] 4.3 mmol/L Normal 3.5-4.9 [facility] Comment on above: Performed By: #### 3 0738 ####[place] [address] [id number], [facility] Sodium [Moles/Vol] 139 mmol/L Normal 138-146 The [facility] Comment on above: Performed By: #### 3 0738 ####[facility] [place] [address], [facility] BASE EXCESS -1.0 mmol/L Normal -2.0-3.[address] [facility] Comment on above: Performed By: #### 3 0738 ####[facility] [place] [address], [facility] Glucose [Mass/Vol] 118 mg/dL High 70-105 [facility] Comment on above: Performed By: #### 3 0738 ####[facility] [place] [address], [facility] Hematocrit (Bld) [Volume fraction] 39 % Normal 38-51 [facility] Comment on above: Performed By: #### 3 0738 ####[facility] [place] [address], [facility] Hemoglobin (Bld) [Mass/Vol] 13.3 g/dL Normal 12.0-17.0 [facility] Comment on above: Performed By: #### 3 0738 ####[facility] [place] [address], [facility] IONIZED CALCIUM 1.17 mmol/L Normal 1.12-1.32 The [facility] Comment on above: Performed By: #### 3 0738 ####[facility] [place] [address], [facility] Oxygen (Bld) [Partial pressure] 96.0 mm[Hg] Normal 80.0-105.0 The [facility] Comment on above: Performed By: #### 3 0738 ####[facility] [place] [address], [place] PCO2 41.2 mmHg Normal 35.0-45.0 [facility] Comment on above: Performed By: #### 3 0738 ####[facility] [place] [address], [facility] pH (Bld) 7.38 [pH] Normal 7.35-7.45 [facility] Comment on above: Performed By: #### 3 0738 ####[facility] [place] [address], [facility] Potassium [Moles/Vol] 4.3 mmol/L Normal 3.5-4.9 [facility] Comment on above: Performed By: #### 3 0738 ####[facility] [place] [address], [facility] Sodium [Moles/Vol] 139 mmol/L Normal 138-146 The [facility] Comment on above: Performed By: #### 3 0738 ####[facility] [place] [address], [facility] PHOSPHORUS BLOODon Phosphate [Mass/Vol] 4.0 mg/dL Normal 2.5-5.0 [facility] Comment on above: Order Comment: No: D o not add to previous draw Performed By: #### 1 0070, 44214, 08913 ####[facility] [facility] [place] [address], [facility] Phosphate [Mass/Vol] 3.8 mg/dL Normal 2.5-5.0 [facility] Comment on above: Order Comment: No: D o not add to previous draw Performed By: #### 0 0071, 92360, 87471 ####[facility] [place] [address], [facility] POC GLUCOSE LABon 04-08-2021 Glucose [Mass/Vol] 252 mg/dL High 70-100 The [facility] Comment on above: Performed By: #### 8 5499 ####[facility] [place] [address], [place] Glucose [Mass/Vol] 240 mg/dL High 70-100 [facility] Comment on above: Performed By: #### 8 5499 ####[facility] [place] [address], [place] Glucose [Mass/Vol] 126 mg/dL High 70-100 [facility] Comment on above: Performed By: #### 8 5499 ####[facility] [place] [address], [place] Glucose [Mass/Vol] 178 mg/dL High 70-100 [facility] Comment on above: Performed By: #### 8 5499 ####[facility] [place] [address], [place] Glucose [Mass/Vol] 195 mg/dL High 70-100 The [facility] Comment on above: Performed By: #### 8 5499 ####[facility] [place] [address], [place] Glucose [Mass/Vol] 113 mg/dL High 70-100 [facility] Comment on above: Performed By: #### 8 5499 ####[facility] [place] [address], [place] Glucose [Mass/Vol] 118 mg/dL High 70-100 [facility] Comment on above: Performed By: #### 8 5499 ####[facility] [place] [address], [place] PORTABLE CHEST 1 VIEWon 03-24 PORTABLE CHEST 1 VIEW Normal [facility] Comment on above: Order Comment: Check Chest Tube Position, ON ARRIVAL TO CVU PROTHROMBIN TIMEon INR Coag (PPP) [Relative time] 1.20 {INR} High 0.91-1.16 [facility] Comment on above: Order Comment: No: D o not add to previous draw Result Comment: [facility] P RECOMMENDED INR FOR WARFARIN THERAPY CONDITION INRPROPHYLAXIS OF VENOUS THROMBOSIS 2-3(HIGH-RISK SURGERY)TREATMENT OF VENOUS THROMBOSIS 2-3TREATMENT OF PULMONARY EMBOLISM 2-3PREVENTION OF SYSTEMIC EMBOLISM: 2-3 ACUTE MYOCARDIAL INFARCTION TISSUE HEART VALVES VALVULAR HEART DISEASE ATRIAL FIBRILLATION RECURRENT SYSTEMIC EMBOLISMMECHANICAL HEART VALVE 2.5-3.5 FROM: ORAL ANTICOAGULANTS. MECHANISM OF ACTION, CLINICALEFFECTIVENESS, AND OPTIMAL THERAPEUTIC RANGE. [id number];108:231S-246S. Performed By: #### 5 6101, 57412 ####[facility] [facility] [place] [address], [facility] PT Coag (PPP) [Time] 15.2 s High 12.3-14.8 [facility] Comment on above: Order Comment: No: D o not add to previous draw Result Comment: ALL RESULTS MUST BE INTERPRETED WITH RESPECT TO BLOOD DRAWING ARTIFACTOR DILUTION ERROR OF ANTICOAGULANT AT THE TIME OF SAMPLING. Performed By: #### 5 6101, 52902 ####[facility] [facility].[address] INR Coag (PPP) [Relative time] 1.23 {INR} High 0.91-1.16 [facility] Comment on above: Result Comment: [facility] P RECOMMENDED INR FOR WARFARIN THERAPY CONDITION INRPROPHYLAXIS OF VENOUS THROMBOSIS 2-3(HIGH-RISK SURGERY)TREATMENT OF VENOUS THROMBOSIS 2-3TREATMENT OF PULMONARY EMBOLISM 2-3PREVENTION OF SYSTEMIC EMBOLISM: 2-3 ACUTE MYOCARDIAL INFARCTION TISSUE HEART VALVES VALVULAR HEART DISEASE ATRIAL FIBRILLATION RECURRENT SYSTEMIC EMBOLISMMECHANICAL HEART VALVE 2.5-3.5 FROM: ORAL ANTICOAGULANTS. MECHANISM OF ACTION, CLINICALEFFECTIVENESS, AND OPTIMAL THERAPEUTIC RANGE. [id number];108:231S-246S. Performed By: #### 5 7307, 97174, 44786 ####[facility] PT Coag (PPP) [Time] 15.5 s High 12.3-14.8 [facility] Comment on above: Result Comment: ALL RESULTS MUST BE INTERPRETED WITH RESPECT TO BLOOD DRAWING ARTIFACTOR DILUTION ERROR OF ANTICOAGULANT AT THE TIME OF SAMPLING. Performed By: #### 5 7307, 41975, 38144 ####[facility] INR Coag (PPP) [Relative time] 1.05 {INR} Normal 0.91-1.16 [facility] Comment on above: Order [...] OF ACTION, CLINICALEFFECTIVENESS, AND OPTIMAL THERAPEUTIC RANGE. [id number];108:[id number]. Performed By: #### 5 6101 ####[facility] PT Coag (PPP) [Time] 13.7 s Normal 12.3-14.8 [facility] Comment on above: Order Comment: No: D o not add to previous draw Result Comment: ALL RESULTS MUST BE INTERPRETED WITH RESPECT TO BLOOD DRAWING ARTIFACTOR DILUTION ERROR OF ANTICOAGULANT AT THE TIME OF SAMPLING. Performed By: #### 5 6101 ####[facility] TROPONIN-Ion 04-08-2021 Troponin I.cardiac [Mass/Vol] 0.34 ng/mL Critically high 0.00-0.04 [facility] Comment on above: Order Comment: No: D o not add to previous draw Result Comment: M-TR OPONIN INITIAL CRITICAL HIGH; RESPUN AND RETESTEDM-CRITICAL RESULT(S) REVIEWED, CALLED TO AND READ BACK BY Kleber TRAN at 4195.REFERENCE RANGES: 0.00 - 0.04 ng/ml NORMAL 0.05 - 0.50 ng/ml INDETERMINATE > 0.50 ng/ml CONSISTENT WITH AN M.I. Performed By: #### 3 5200 ####[facility] [facility].[address] POC GLUCOSE LABon 04-07-2021 Glucose [Mass/Vol] 121 mg/dL High 70-[address] [facility] Comment on above: Performed By: #### 8 5499 ####[facility] [facility] [place] [address], [facility] Glucose [Mass/Vol] 165 mg/dL High 70-100 The [facility] Comment on above: Performed By: #### 8 5499 ####[facility] [facility] [place] [address], [facility] Glucose [Mass/Vol] 109 mg/dL High 70-100 [facility] Comment on above: Performed By: #### 8 5499 ####[facility] [facility] [place] [address], [facility] POC SARS COV2 ANTIGEN NEGATI VEon 04-07-2021 POC SARS COV2 ANTIGEN NEG Negative Normal NEGATIVE [facility] Comment on above: Result Comment: Nega [...] of clinicalsigns and symptoms consistent with COVID-19.The [employer] COW COVID-19 Ag Card is a lateral flow immunoassay intended forthe qualitative detection of nucleocapsid protein antigen [id number] in direct nasal swabs from individuals within [...] Certificate ofAccreditation. Performed By: #### 3 1977 ####[facility] [facility] [place] [address], [facility] Pulmonary Functionon 08-15-2 021 Pulmonary Function Normal [facility] RBC'S 4 UNITSon 04-07-2021 CROSSMATCH INTERP 1 COMP Normal [facility] Comment on above: Performed By: #### 8 6004 ####[facility] [place] [address], [facility] CROSSMATCH INTERP 2 COMP Normal The [facility] Comment on above: Performed By: #### 8 6004 ####[facility] [place] [address], [place] CROSSMATCH INTERP 3 COMP Normal The [facility] Comment on above: Performed By: #### 8 6004 ####[facility] [place] [address], [place] CROSSMATCH INTERP 4 COMP Normal The [facility] Comment on above: Performed By: #### 8 6004 ####[facility] [place] [address], [place] PRODUCT CODE 1 E0336 Normal The [facility] Comment on above: Performed By: #### 8 6004 ####[facility] [place] [address], [place] PRODUCT CODE 2 E0336 Normal [facility] Comment on above: Performed By: #### 8 6004 ####[facility] [place] [address], [place] PRODUCT CODE 3 E0336 Normal The [facility] Comment on above: Performed By: #### 8 6004 ####[facility] [place] [address], [place] PRODUCT CODE 4 E0336 Normal [facility] Comment on above: Performed By: #### 8 6004 ####[facility] [place] [address], [facility] PRODUCT STATUS 1 RE Normal The [facility] Comment on above: Result Comment: Resu lt changed by IF on 04/08/2021 12:37. The previous value was XM.Result changed by IF on 04/08/2021 16:53. The previous value was IS.Result changed by IF on 04/11/2021 11:14. The previous value was XM. Performed By: #### 8 6004 ####[facility] [facility] [place] [address], [facility] PRODUCT STATUS 2 RE Normal The [facility] Comment on above: Result Comment: Resu lt changed by IF on 04/08/2021 12:37. The previous value was XM.Result changed by IF on 04/08/2021 16:53. The previous value was IS.Result changed by IF on 04/11/2021 11:14. The previous value was XM. Performed By: #### 8 6004 ####[facility] [facility] [place] [address], [facility] PRODUCT STATUS 3 RE Normal The [facility] Comment on above: Result Comment: Resu lt changed by IF on 04/08/2021 12:37. The previous value was XM.Result changed by IF on 04/08/2021 16:53. The previous value was IS.Result changed by IF on 04/11/2021 11:14. The previous value was XM. Performed By: #### 8 6004 ####[facility] [facility] [place] [address], [facility] PRODUCT STATUS 4 RE Normal The [facility] Comment on above: Result Comment: Resu lt changed by IF on 04/08/2021 12:37. The previous value was XM.Result changed by IF on 04/08/2021 16:53. The previous value was IS.Result changed by IF on 04/11/2021 11:14. The previous value was XM. Performed By: #### 8 6004 ####[facility] [facility] [place] [address], [facility] UNIT ABO 1 O Normal The [facility] Comment on above: Performed By: #### 8 6004 ####[facility] [place] [address], [facility] UNIT ABO 2 O Normal The [facility] Comment on above: Performed By: #### 8 6004 ####[facility] [place] [address], [facility] UNIT ABO 3 O Normal The [facility] Comment on above: Performed By: #### 8 6004 ####[facility] [place] [address], [facility] UNIT ABO 4 O Normal The [facility] Comment on above: Performed By: #### 8 6004 ####[facility] [place] [address], [facility] UNIT ID 1 [id number] Normal The [facility] Comment on above: Performed By: #### 8 6004 ####[facility] [place] [address], [facility] UNIT ID 2 [id number] Normal The [facility] Comment on above: Performed By: #### 8 6004 ####[facility] [place] [address], [facility] UNIT ID 3 [id number] Normal The [facility] Comment on above: Performed By: #### 8 6004 ####[facility] [place] [address], [facility] UNIT ID 4 [id number] Normal The [facility] Comment on above: Performed By: #### 8 6004 ####[facility] [place] [address], [facility] UNIT RH 1 Positive Normal The [facility] Comment on above: Performed By: #### 8 6004 ####[facility] [place] [address], [facility] UNIT RH 2 Positive Normal The [facility] Comment on above: Performed By: #### 8 6004 ####[facility] [place] [address], [place] UNIT RH 3 Positive Normal The [facility] Comment on above: Performed By: #### 8 6004 ####[facility] [place] [address], [facility] UNIT RH 4 Positive Normal The [facility] Comment on above: Performed By: #### 8 6004 ####[facility] [place] [address], [facility] TYPE AND SCREENon 04-07-2021 ABO INTERPRETATION O Normal The [facility] Comment on above: Performed By: #### 6 2586 ####[facility] [place] [address], [facility] RH INTERPRETATION Positive Normal [facility] Comment on above: Performed By: #### 6 2586 ####[facility] [place] [address], [facility] *MRSA/MSSA DNA NASALon 04-06 *MRSA/MSSA DNA NASAL Clinical Report: (D) Specimen: NASAL SWAB Collected: 04/06/2021 12:43 Status: Final Last Updated: 04/06/2021 16:01 MSSA DNA (Final) Negative MRSA DNA (Final) Negative Normal The [facility] Comment on above: Performed By: #### 3 1595 ####[facility] [place] [address], [facility] BASIC METABOLIC PANELon 08-1 Calcium [Mass/Vol] 8.9 mg/dL Normal 8.6-10.3 The [facility] Comment on above: Order Comment: No: D o not add to previous draw Performed By: #### 1 0, 81234 ####[facility] [place] [address], [facility] Chloride [Moles/Vol] 103 mmol/L Normal 98-107 The [facility] Comment on above: Order Comment: No: D o not add to previous draw Performed By: #### 1 0, 91873 ####[facility] [place] [address], [facility] CO2 [Moles/Vol] 26 mmol/L Normal 21-31 The [facility] Comment on above: Order Comment: No: D o not add to previous draw Performed By: #### 1 0, 34543 ####[facility] [facility] [place] [address], [facility] Creatinine [Mass/Vol] 0.78 mg/dL Normal 0.70-1.30 The [facility] Comment on above: Order Comment: No: D o not add to previous draw Performed By: #### 1 69, 51762 ####[facility] [place] [address], [facility] GFR/1.73 sq M.predicted among blacks MDRD (S/P/Bld) [Vol rate/Area] mL/min/{1.73_m2} Normal >60 The [facility] Comment on above: Order Comment: No: D o not add to previous draw Result Comment: Calc ulation may not be valid for patients over 70 years Performed By: #### 1 69, 78109 ####[facility] [facility] [place] [address], [facility] GFR/1.73 sq M.predicted among non-blacks MDRD (S/P/Bld) [Vol rate/Area] mL/min/{1.73_m2} Normal >60 The [facility] Comment on above: Order Comment: No: D o not add to previous draw Result Comment: Calc ulation may not be valid for patients over 70 years Performed By: #### 1 69, 94967 ####[facility] [place] [address], [facility] Glucose [Mass/Vol] 101 mg/dL High 70-100 The [facility] Comment on above: Order Comment: No: D o not add to previous draw Performed By: #### 1 69, 31329 ####[facility] [place] [address], [facility] Potassium [Moles/Vol] 4.1 mmol/L Normal 3.5-5.1 The [facility] Comment on above: Order Comment: No: D o not add to previous draw Performed By: #### 1 69, 12563 ####[facility] [place] [address], [facility] Sodium [Moles/Vol] 134 mmol/L Low 136-145 The [facility] Comment on above: Order Comment: No: D o not add to previous draw Performed By: #### 1 69, 91865 ####[facility] [facility] Urea nitrogen [Mass/Vol] 20 mg/dL Normal 7-25 The [facility] Comment on above: Order Comment: No: D o not add to previous draw Performed By: #### 1 69, 01580 ####[facility] [facility].[address] CBC COMPLETE BLOOD COUNTon 0 - Erythrocyte distribution width (RBC) [Ratio] 15.3 % High 11.5-15.0 The [facility] Comment on above: Order Comment: No: D o not add to previous draw Performed By: #### 5 0608 ####[facility] Hematocrit (Bld) [Volume fraction] 43.0 % Normal 39.0-50.0 The [facility] Comment on above: Order Comment: No: D o not add to previous draw Performed By: #### 5 0608 ####[facility] [facility].[address] Hemoglobin (Bld) [Mass/Vol] 14.3 g/dL Normal 13.0-17.0 The [facility] Comment on above: Order Comment: No: D o not add to previous draw Performed By: #### 5 0608 ####[facility] MCH (RBC) [Entitic mass] 30.6 pg Normal 27.0-33.0 The [facility] Comment on above: Order Comment: No: D o not add to previous draw Performed By: #### 5 0608 ####[facility] MCHC (RBC) [Mass/Vol] 33.3 g/dL Normal 32.0-35.0 The [facility] Comment on above: Order Comment: No: D o not add to previous draw Performed By: #### 5 0608 ####[place] [address] [facility].[address] MCV (RBC) [Entitic vol] 92.1 fL Normal 82.0-98.0 The [facility] Comment on above: Order Comment: No: D o not add to previous draw Performed By: #### 5 0608 ####[facility] Nucleated RBC/100 WBC (Bld) [Ratio] 0 % Normal 0-0 The [facility] Comment on above: Order Comment: No: D o not add to previous draw Performed By: #### 5 0608 ####[facility] [place] [address], [facility] PLAT CNT 238 10*3/uL Normal 150-400 The [facility] Comment on above: Order Comment: No: D o not add to previous draw Performed By: #### 5 0608 ####[facility] [place] [address], [facility] RBC (Bld) [#/Vol] 4.67 10*6/uL Normal 4.20-5.70 The [facility] Comment on above: Order Comment: No: D o not add to previous draw Performed By: #### 5 0608 ####[facility] [place] [address], [place] WBC (Bld) [#/Vol] 6.86 10*3/uL Normal 4.00-10.60 The [facility] Comment on above: Order Comment: No: D o not add to previous draw Performed By: #### 5 0608 ####[facility] [facility] [place] [address], [facility] MAGNESIUM BLOODon 04-06-2021 Magnesium [Mass/Vol] 2.0 mg/dL Normal 1.9-2.7 The [facility] Comment on above: Order Comment: No: D o not add to previous draw Performed By: #### 1 0070, 27735 ####[facility] [place] [address], [facility] POC GLUCOSE LABon 04-06-2021 Glucose [Mass/Vol] 118 mg/dL High 70-100 The [facility] Comment on above: Performed By: #### 8 5499 ####[facility] [place] [address], [place] Glucose [Mass/Vol] 108 mg/dL High 70-100 The [facility] Comment on above: Performed By: #### 8 5499 ####[facility] [place] [address], [place] Glucose [Mass/Vol] 114 mg/dL High 70-100 The [facility] Comment on above: Performed By: #### 8 5499 ####[facility] [facility] [place] [address], [facility] Glucose [Mass/Vol] 126 mg/dL High 70-[address] [facility] Comment on above: Performed By: #### 8 5499 ####[facility] [facility] [place] [address], [facility] URINALYSIS REFLEXon 04-06-20 21 Appearance (U) CLEAR Normal CLEAR The [facility] Comment on above: Order Comment: No: D o not add to previous drawCriteria for reflexing a culture was not met. Please call the lab [id number] within 24 hours of collection time if culture is needed Performed By: #### 3 0965 ####[facility] [facility] [place] [address], [facility] Bilirubin Ql (U) Negative Normal NEGATIVE The [facility] Comment on above: Order Comment: No: D o not add to previous drawCriteria for reflexing a culture was not met. Please call the lab [phone] within 24 hours of collection time if culture is needed Performed By: #### 3 0965 ####[facility] [place] [address], [facility] Color (U) YELLOW Normal YELLOW The [facility] Comment on above: Order Comment: No: D o not add to previous drawCriteria for reflexing a culture was not met. Please call the lab [phone] within 24 hours of collection time if culture is needed Performed By: #### 3 0965 ####[facility] [facility] [place] [address], [facility] Glucose Ql (U) Negative Normal NEGATIVE The [facility] Comment on above: Order Comment: No: D o not add to previous drawCriteria for reflexing a culture was not met. Please call the lab [phone] within 24 hours of collection time if culture is needed Performed By: #### 3 0965 ####[facility] [place] [address], [facility] Hemoglobin Ql (U) Negative Normal NEGATIVE The [facility] Comment on above: Order Comment: No: D o not add to previous drawCriteria for reflexing a culture was not met. Please call the lab [phone] within 24 hours of collection time if culture is needed Performed By: #### 3 0965 ####[facility] [place] [address], [facility] KETONE Negative Normal NEGATIVE The [facility] Comment on above: Order Comment: No: D o not add to previous drawCriteria for reflexing a culture was not met. Please call the lab [id number] within 24 hours of collection time if culture is needed Performed By: #### 3 0965 ####[facility] [place] [address], [facility] LEUK JESS Negative Normal NEGATIVE The [facility] Comment on above: Order Comment: No: D o not add to previous drawCriteria for reflexing a culture was not met. Please call the lab [id number] within 24 hours of collection time if culture is needed Performed By: #### 3 0965 ####[place] [address] MICRO NOT DONE Normal The [facility] Comment on above: Order Comment: No: D o not add to previous drawCriteria for reflexing a culture was not met. Please call the lab [phone] within 24 hours of collection time if culture is needed Result Comment: Micr oscopics not performed on urines withnegative chemical reactions unless requested in original order Performed By: #### 3 0965 ####[facility] [place] [address], [facility] Nitrite Ql (U) Negative Normal NEGATIVE The [facility] Comment on above: Order Comment: No: D o not add to previous drawCriteria for reflexing a culture was not met. Please call the lab [id number] within 24 hours of collection time if culture is needed Performed By: #### 3 0965 ####[facility] pH (U) 6.0 [pH] Normal 5.0-8.0 [facility] Comment on above: Order Comment: No: D o not add to previous drawCriteria for reflexing a culture was not met. Please call the lab [id number] within 24 hours of collection time if culture is needed Performed By: #### 3 0965 ####[facility] Protein Ql (U) Negative Normal NEGATIVE The [facility] Comment on above: Order Comment: No: D o not add to previous drawCriteria for reflexing a culture was not met. Please call the lab [phone] within 24 hours of collection time if culture is needed Performed By: #### 3 0965 ####[facility] SPEC GRAV 1.019 Normal 1.015-1.020 The [facility] Comment on above: Order Comment: No: D o not add to previous drawCriteria for reflexing a culture was not met. Please call the lab [id number] within 24 hours of collection time if culture is needed Performed By: #### 3 0965 ####[address] Vital Signs Date Time Vital Sign Value Performing Clinician Faci lity 06-01-2024 15: Body height 179.1 cm Teressa Sierra [employer] Work Phone: [facility] 06-01-2024 15: Body mass index (BMI) [Ratio] 45.52 kg/m2 Teressa Sierra [employer] Work Phone: [facility] 06-01-2024 15: Body temperature 98.49 [degF] Teressa Sierra [employer] Work Phone: [facility] 06-01-2024 15: Body weight 145.97 kg Teressa Adolphholz [employer] Work Phone: [facility] 06-01-2024 15:17-0400 Diastolic blood pressure 68 mm[Hg] Teressa Aichholz [employer] Work Phone: [facility] 06-01-2024 15:17-040 Heart rate 62 /min Teressa Aichholz [employer] Work Phone: [facility] 06-01-2024 15:17-040 Respiratory rate 18 /min Teressa Aichholz [employer] Work Phone: [facility] 06-01-2024 15:17040 SaO2% (BldA) [Mass fraction] 95 % Teressa Aichholz [employer] Work Phone: [facility] 06-01-2024 15:17-0400 Systolic blood pressure 122 mm[Hg] Teressa Aichholz [employer] TESTER Work Phone: [facility] Healthcare Encounters Encounter Date Encounter Type Care Provider Facility Start: 06-13-2024 End: 06-13-2024 Refill Teressa Samanthahholz [employer] Work Phone: [facility] Comment on above: Coronary artery dise ase involving telida coronary artery of telida heart without angina pectoris (CMS/HCC) (Primary Dx); Atherosclerosis of telida coronary artery of telida heart without angina pectoris (CMS/HCC); Mixed hyperlipidemia ([facility]/HCC) Start: 06-01-2024 End: 06-01-2024 Office outpatient visit 25 minutes Teressa Adolphholz [employer] Work Phone: [facility] Comment on above: Type 2 diabetes jennie itus without complication, without long- term current use of insulin (CMS/HCC) (Primary Dx); Chronic kidney disease, stage 3a (HCC) (CMS/HCC); Mixed hyperlipidemia (CMS/HCC); 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 (CMS/HCC); Essential hypertension; Prostate cancer screening; Obstructive sleep apnea syndrome; Chronic obstructive pulmonary disease, unspecified COPD type (CMS/HCC); Venous stasis of both lower extremities; Morbid (severe) obesity due to excess calories (CMS/HCC); Body mass index (BMI) 45.0-49.9, adult (CMS/HCC) Start: 06-01-2024 End: 06-01-2024 ambulatory TERESSA AICHHOLZ Not Available Start: 06-01-2024 End: 06-01-2024 Bamboo flowsheet Teressa Aichholz [employer] Work Phone: [facility] Start: 06-01-2024 End: 06-01-2024 Bamboo flowsheet Teressa Aichholz [employer] TE[employer] Work Phone: [facility] Start: 03-14-2024 End: 03-14-2024 ambulatory TERESSA AICHHOLZ Not Available Start: 03-09-2024 End: 03-09-2024 ambulatory [facility] Start: 12-17-2023 End: 12-17-2023 ambulatory [facility] Start: 12-14-2023 End: 12-14-2023 ambulatory TERESSA AICHHOLZ Not Available Start: 12-14-2023 Patient encounter procedure Teressa Aichholz [employer] Work Phone: [facility] Start: 09-09-2023 End: 09-09-2023 ambulatory TERESSA AICHHOLZ Not Available Start: 06-05-2023 End: 06-05-2023 ambulatory CATINA SALAZAR [facility] Start: 05-18-2023 End: 05-18-2023 ambulatory Mal Barnes Facility:[facility] Start: 09-03-2022 End: 09-03-2022 ambulatory Moshe Garcia Other [employer] Other Start: 09-03-2022 Office outpatient ne w 45 minutes Moshe Garcia [facility] Start: 08-18-2022 End: 08-20-2022 Evaluation and [...] Evaluation and management of inpatient MAL BARNES Facility:[facility] Procedures Date Procedure Procedure Detail Performing Clinician Start: 07-03-2021 History of coronary artery bypass grafting History of coronary artery bypass surgery Teressa Sierra NP Work Phone: Start: 05-24-2021 Antibody screen MAL BARNES Comment on above: Performed By: #### 6 2586 ####[facility] [place] [address], [facility] Start: 05-23-2021 EXCISION OF STERNUM, OPEN [...] on above: Performed By: #### 6 2586 ####[facility] [place] [address], [facility] Start: 05-16-2021 EXCISION OF CHEST SK IN, EXTERNAL APPROACH AKANKSHA UP Start: 05-16-2021 RESPIRATORY VENTILAT ION, LESS THAN 24 CONSECUTIVE HOURS GUDELIA MASROOR Start: 05-15-2021 Antibody screen MAL BARNES Comment on above: Performed By: #### 6 2586 ####[facility] [place] [address], [facility] Start: 04-07-2021 Antibody screen MAL BARNES Comment on above: Performed By: #### 6 2586 ####[facility] [place] [address], [facility] Plan of Treatment Date Care Activity Detail Author Start: 08-24-2025 Glaucoma screening Diabetes: R etinopathy Screening [facility] Healthcare Start: 12-13-2024 Medicare Annual Well ness (AWV) Medicare Annual Wellness (AWV) [facility] Start: 09-09-2024 Pneumococcal Vaccine : 65+ Years (1 of 2 - PCV) Pneumococcal Vaccine: 65+ Years (1 of 2 - PCV) [facility] Comment on above: Postponed from 05/11 (Patient Refused) Start: 09-05-2024 End: 09-05-2024 Patient encounter procedure 09/05/2024 2:00 PM EST Office Visit [facility] [address] [place] [address] Teressa Sierra, [place] [address] [place] [id number] [facility] Start: 06-17-2024 Hemoglobin A1c measurement Diabetes: Hemoglobin A1C [facility] Start: 06-01-2024 End: 06-01-2024 Patient encounter procedure 06/01/2024 3:00 PM EDT Office Visit [facility] [address] [place] [address] Teressa Sierra, [employer]ITY [employer] [address] [place] [id number] Chronic kidney disease, stage 3a (HCC) (CMS/HCC) (Primary Dx); Type 2 diabetes mellitus without complication, without long-term current use of insulin (CMS/HCC); Mixed hyperlipidemia (CMS/HCC); 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 (CMS/HCC); Essential hypertension; Prostate cancer screening [facility] Comment on above: Chronic kidney disea se, stage 3a (HCC) (CMS/HCC) (Primary Dx); Type 2 diabetes mellitus without complication, without long-term current use of insulin (CMS/HCC); Mixed hyperlipidemia (CMS/HCC); 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 (CMS/HCC); Essential hypertension; Prostate cancer screening Start: 06-01-2024 End: 06-01-2025 CBC W Auto Differential panel - Blood CBC and differential Lab Routine Chronic kidney disease, stage 3a (HCC) (CMS/HCC) Expected: 06/01/2024 (Approximate), Expires: 06/01/2025 [facility] Work Phone: Comment on above: Expected: 06/01/2024 (Approximate), Expires: 06/01/2025 Start: 06-01-2024 End: 06-01-2025 Comprehensive metabolic 2000 panel - Serum or Plasma Comprehensive metabolic panel Lab Routine Type 2 diabetes mellitus without complication, without long-term current use of insulin (CMS/HCC) Mixed hyperlipidemia (CMS/HCC) Essential hypertension Expected: 06/01/2024 (Approximate), Expires: 06/01/2025 [facility] Comment on above: Expected: 06/01/2024 (Approximate), Expires: 06/01/2025 Start: 06-01-2024 End: 06-01-2025 Hemoglobin A1c/Hemoglobin.total in Blood Hemoglobin A1c Lab Routine Type 2 diabetes mellitus without complication, without long-term current use of insulin (CMS/HCC) Expected: 06/01/2024 (Approximate), Expires: 06/01/2025 [facility] Comment on above: Expected: 06/01/2024 (Approximate), Expires: 06/01/2025 Start: 06-01-2024 End: 06-01-2025 Lipid 1996 panel - Serum or Plasma Lipid panel Lab Routine Type 2 diabetes mellitus without complication, without long-term current use of insulin (CMS/HCC) Mixed hyperlipidemia (CMS/HCC) Expected: 06/01/2024 (Approximate), Expires: 06/01/2025 [facility] Comment on above: Expected: 06/01/2024 (Approximate), Expires: 06/01/2025 Start: 06-01-2024 End: 06-01-2025 Microalbumin/Creatinine panel in random Urine Microalbumin / creatinine, urine ratio Lab Routine Type 2 diabetes mellitus without complication, without long-term current use of insulin ([facility]/HCC) Essential hypertension Expected: 06/01/2024 (Approximate), Expires: 06/01/2025 [facility] Comment on above: Expected: 06/01/2024 (Approximate), Expires: 06/01/2025 Start: 06-01-2024 End: 06-01-2025 Prostate specific Ag [Mass/volume] in Serum or Plasma PSA Lab Routine Prostate cancer screening Expected: 06/01/2024 (Approximate), Expires: 06/01/2025 [facility] Comment on above: Expected: 06/01/2024 (Approximate), Expires: 06/01/2025 Start: 06-01-2024 End: 06-01-2025 Urinalysis complete panel - Urine Urinalysis with reflex microscopic (clean catch) Lab Routine Type 2 diabetes mellitus without complication, without long-term current use of insulin ([facility]/HCC) Essential hypertension Expected: 06/01/2024 (Approximate), Expires: 06/01/2025 [facility] Comment on above: Expected: 06/01/2024 (Approximate), Expires: 06/01/2025 Start: 05-20-2024 Urine screening for protein Diabetes: Urine Protein Screening [facility] Payers Date Payer Category Payer Medicare (Managed Care) [facility] [id number] 2023 Unknown [facility] D [facility] Vari[employer]ly [id number] 2023-Present [address] [place] [id number] 2023 Unknown [id number] 1959 Private Health Insurance [id number] 1959 Self-pay 1945 Unknown [id number] [id number] .2.647 1944 Unknown [id number] 2.16.840.1.885572.3.579 .2.593 1944 Unknown [id number] 2.16.840.1.984184.3.579 .2.593 1944 Unknown [id number] 2.16.840.1.835220.3.579 .2.593 1944 Unknown [id number] 2.16.840.1.457120.3.579 .2.593 1944 Unknown [id number] 2.16.840.1.648986.3.579 .2.593 1944 Unknown [id number] 2.16.840.1.221246.3.579 .2.593 1944 Unknown [id number] 2.16.840.1.076262.3.579 .2.593 1944 Unknown [id number] 2.16.840.1.782008.3.579 .2.593 1944 Unknown [id number] 2.16.840.1.477410.3.579 .2.593 1944 Unknown [id number] 2.16.840.1.005249.3.579 .2.1259 1944 Unknown [id number] 2.16.840.1.572583.3.579 .2.1259 1944 Unknown [id number] 2.16.840.1.528973.3.579 .2.1259 1944 Unknown [id number] 2.16.840.1.838674.3.579 .2.1259 Unknown [id number] 2.16.840.1.052664.3.579 .2.531 Social History Date Type Detail Facility Start: 12-14-2023 End: 06-01-2024 Sex Assigned At [facility] Start: 09-07-2023 Tobacco smoking status NHIS Ex-smoke r [facility] History of tobacco [...] to any clubs or organizations such as anabaptism groups, unions, fraternal or athletic groups, or [...] 4 o r more times a week [facility] Start: 1945 Sex assigned at Not on file [facility] Medical Equipment Procedure Code Equipment Code [...] Narrative Associated Problem(s): Diabetes mellitus, type II ([facility]) Cannot afford ozempic, although his sugars seem [...] sugars. Associated Problem(s): CAD (coronary artery disease) ([facility]) Continue current meds/dose Associated Problem(s): Essential hypertension At goal no dose changes Associated Problem(s): COPD (chronic obstructive pulmonary disease) ([facility]) Continue with dr woodruff Needs a refill of trelegy , he needs to contact them Associated Problem(s): Sleep apnea Non compliant with PAP use, machine is broke , difficulty finding DME who takes his insurance I did leave a VM on Sleep lab TB regarding this for them to assist Pt is seeing a media specialist for his legs. Pt had a fasting BS of 130 Pt would like a refill on his trelegy ellipta He does not see dr kacy rodas next year Images from the original note [...] no compliance problems. Hypertensive end-organ damage includes CAD/WA and PVD. Diabetes He presents for his [...] being taken. He does not see a software sales.Eye exam is current. SUBJECTIVE: MEDICATIONS: Current Outpatient [...] Diagnosis Date Anemia CAD (coronary artery disease) ([facility]) Constipation COPD (chronic obstructive pulmonary disease) ([facility]) Diabetes mellitus, type II ([facility]) Hearing decreased Heart disease Hip pain, right Hypercholesterolemia ([facility]) Hypertension ([facility]) Iron deficiency Myocardial infarction ([facility]) Osteoarthritis of both knees, unspecified osteoarthritis type [...] to assist COPD (chronic obstructive pulmonary disease) ([facility]) Continue with dr woodruff Needs a refill of trelegy , he needs to contact them CAD (coronary artery disease) ([facility]) Continue current meds/dose Diabetes mellitus, type II ([facility]) - Primary Cannot afford ozempic, although his [...] Morbid (severe) obesity due to excess calories ([facility]) Chronic kidney disease, stage 3a (HCC) ([facility]) Relevant Orders CBC and differential Body mass index (BMI) 45.0-49.9, adult ([facility]/HCC) Mixed hyperlipidemia ([facility]/HCC) Relevant Orders Comprehensive metabolic panel Lipid panel Prostate cancer screening Relevant Orders PSA documented in this encounter [facility] 03-09-2024 Note Cardiovascular Medic [facility] SUBJECTIVE Chief Complaint Patient presents [...] coronary artery bypass surgery Nonsustained ventricular tachycardia ([facility]) Syncope and collapse Wound of sternal region Chronic diastolic congestive heart failure ([facility]) COVID-19 Hyperglycemia Metabolic syndrome MGUS (monoclonal gammopathy of unknown significance) Pericardial effusion Pneumonia, bacterial Solitary pulmonary nodule Arthritis of right hip Bilateral lower extremity edema Constipation COPD (chronic obstructive pulmonary disease) ([facility]) Encounter for subsequent annual wellness visit (AWV) in Medicare patient Hearing decreased Hypercholesterolemia Hyperpigmentation Iron deficiency Lymphedema Lymphorrhea Myocardial infarction ([facility]/HCC) Nicotine dependence Osteoarthritis of both knees Papillomatosis Sleep apnea Morbid obesity ([facility]/HCC) Venous stasis ulcer of right lower extremity ([facility]) Wound cellulitis Diabetes mellitus, type II ([facility]/HCC) detention (current) use of inhaled steroids Ulcer of lower extremity ([facility]) Past Medical History: Diagnosis Date CHF (congestive heart failure) ([facility]) Coronary artery disease Hyperlipidemia Hypertension Pericardial effusion [...] Venous stasis skin (more content not included)... [facility] 12-17-2023 Note Patient here for 6 [...] All other systems reviewed and are negative. [facility] 12-17-2023 Note Cardiovascular Medic [facility] SUBJECTIVE Chief Complaint Patient presents [...] coronary artery bypass surgery Nonsustained ventricular tachycardia ([facility]/HCC) Syncope and collapse Wound of sternal region Chronic diastolic congestive heart failure ([facility]/HCC) COVID-19 Hyperglycemia Metabolic syndrome MGUS (monoclonal gammopathy of unknown significance) Pericardial effusion Pneumonia, bacterial Solitary pulmonary nodule Arthritis of right hip Bilateral lower extremity edema Constipation COPD (chronic obstructive pulmonary disease) ([facility]) Encounter for subsequent annual wellness visit (AWV) in Medicare patient Hearing decreased Hypercholesterolemia Hyperpigmentation Iron deficiency Lymphedema Lymphorrhea Myocardial infarction ([facility]/HCC) Nicotine dependence Osteoarthritis of both knees Papillomatosis Sleep apnea Morbid obesity ([facility]/HCC) Venous stasis ulcer of right lower extremity ([facility]) Wound cellulitis Past Medical History: Diagnosis Date CHF (congestive heart failure) ([facility]) Coronary artery disease Hyperlipidemia Hypertension Pericardial effusion [...] le+ Pitting Edema (more content not included)... [facility] 06-05-2023 Note [facility] Subjective Arianne Mcqueen is a [...] He was resuscitated and admitted to the [facility]. His initial investigation was negative. He was [...] In August 2021 he was admitted to [facility] and then transferred to [facility] due to COVID infection and large pericardial effusion. He was treated with diuretics. CTA of the chest August 2021 found effusion to be moderate and did not necessitate pericardiocentesis. He has dyspnea on exertion when walking and doing physical activity. No chest pain. He has bilateral leg swelling. He is in NYHA class II-III. He reports that he ran out of [employer] Data over the past 5 days. Recent testing: [...] worsening renal funct (more content not included)... [facility] 09-03-2022 Evaluation note Encounter Date Diagnosis [...] have been reviewed. Hospital notes from the [facility] from his prior admission on 08/18/2022 are [...] years ago and was just admitted to [facility] with pneumonia a couple of weeks ago. [...] as documented in the electronic medical record. [employer] Other 09-15-2022 NotePROCEDURE: XR HIP RT 2 3V WO PELVIS HISTORY: Pain in right hip joint COMPARISON: XR pelvis 09/15/2021 FINDINGS: BONES:Complete loss of the joint space with [id number] articulation. Large periarticular degenerative osteophytes. No fracture, dislocation, bone lesion. SOFT TISSUES:No visible soft tissue swelling. EFFUSION:None visible. OTHER: Atherosclerotic disease. IMPRESSION: 1. 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 2. No appreciable acute abnormality. Electronically authenticated by: NOREEN KELLY Date: 2022-05-08 10:48[facility]10-28-[facility]21 NoteThe [facility]The [facility] NotePatient Outreach ([facility]) ARIANNE MCQUEEN ([id number]) 1945 M Date Time Provider Department 10/11/20 TERRANCE CABALLERO During your visit today, we recorded the following information about you: Allergies As of Date: 10/11/2020 (No Known Allergies) Date Reviewed: 04/21/2020 Reviewed by: Willie Sotelo - Fully Assessed Order(s):SARS-COVID VACCINE 1ST DOSE APPT [[id number]] Order #: [id number] FUTURE Prescriptions as of 10/11/2020 Sig: TRAZODONE [...] [I73.9] 08/19/2012 Letter Text Encounter Status:Closed by RASHAAD PRODUSER on 10/15/20[facility] Evaluation note* Diagnosis Type 2 diabetes mellitus without complication, without long-term current use of insulin (CMS/HCC)- Primary Chronic kidney disease, stage 3a (HCC) (CMS/HCC) Mixed hyperlipidemia (CMS/HCC) Mixed hyperlipidemia 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 (CMS/HCC) Essential hypertension Unspecified essential hypertension Prostate cancer screening Special screening for malignant neoplasm of prostate Obstructive sleep apnea syndrome Obstructive sleep apnea (adult) (pediatric) Chronic obstructive pulmonary disease, unspecified COPD type (CMS/HCC) Venous stasis of both lower extremities Morbid (severe) obesity due to excess calories (CMS/HCC) Body mass index (BMI) 45.0-49.9, adult (CMS/HCC) documented in this encounter [facility] HealthcareEvaluation note* Diagnosis Type 2 diabetes mellitus without complication, without long-term current use of insulin (CMS/HCC)- Primary Essential hypertension Unspecified essential hypertension Varicose veins of bilateral lower extremities with pain Morbid obesity (CMS/HCC) Morbid obesity Encounter for subsequent annual wellness visit (AWV) in Medicare patient- Primary Chronic obstructive pulmonary disease, unspecified COPD type (CMS/HCC) Obstructive sleep apnea syndrome Obstructive sleep apnea (adult) (pediatric) 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 (CMS/HCC) Essential hypertension Unspecified essential hypertension Type 2 diabetes mellitus without complication, without long-term current use of insulin (CMS/HCC) Chronic diastolic congestive heart failure (CMS/HCC) Venous stasis of both lower extremities Bilateral lower extremity edema Morbid obesity (CMS/HCC) Morbid obesity Type 2 diabetes mellitus without complication, without long-term current use of insulin (CMS/HCC)- Primary Type 2 diabetes mellitus with diabetic chronic kidney disease (CMS/HCC) Chronic kidney disease, stage 3a (HCC) (CMS/HCC) Morbid (severe) obesity due to excess calories (CMS/HCC) Body mass index (BMI) 45.0-49.9, adult (CMS/HCC) Type 2 diabetes mellitus with other skin ulcer (CODE) (CMS/HCC) Non-pressure chronic ulcer of unspecified part of unspecified lower leg with unspecified severity (CMS/HCC) Peripheral vascular disease, unspecified (CMS/HCC) Peripheral vascular disease, unspecified Other ventricular tachycardia (CMS/HCC) 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 (CODE) (CMS/HCC) Aortic ectasia, unspecified site (CMS/HCC) Aortic ectasia, unspecified site Venous stasis of both lower extremities Essential hypertension Unspecified essential hypertension Type 2 diabetes mellitus without complication, without long-term current use of insulin (CMS/HCC)- Primary Chronic kidney disease, stage 3a (HCC) (CMS/HCC) Mixed hyperlipidemia (CMS/HCC) Mixed hyperlipidemia 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 (CMS/HCC) Essential hypertension Unspecified essential hypertension Prostate cancer screening Special screening for malignant neoplasm of prostate Obstructive sleep apnea syndrome Obstructive sleep apnea (adult) (pediatric) Chronic obstructive pulmonary disease, unspecified COPD type (CMS/HCC) Venous stasis of both lower extremities Morbid (severe) obesity due to excess calories (CMS/HCC) Body mass index (BMI) 45.0-49.9, adult (CMS/HCC) 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 (CMS/HCC)- Primary Atherosclerosis of telida coronary artery of telida heart without angina pectoris (CMS/HCC) Mixed hyperlipidemia (CMS/HCC) Mixed hyperlipidemia [facility] - [facility]* Type Description Date Medical History diabetes mallitus Medical History HTN Surgical History knee replacement 2010 [employer] Other Summary Purpose Family History No Family [...] section and content) DATE CREATED AUTHOR 09/01/2021 [facility] DATE CREATED AUTHOR AUTHOR'S ORGANIZ ATION 04/06/2022 [facility] DATE CREATED AUTHOR AUTHOR'S ORGANIZ ATION 11/04/2022 [facility] DATE CREATED AUTHOR AUTHOR'S ORGANIZ ATION 11/12/2023 [facility] DATE CREATED AUTHOR AUTHOR'S ORGANIZ ATION 03/31/2024 [facility] DATE CREATED AUTHOR AUTHOR'S ORGANIZ ATION 06/03/2024 [facility] EPIC REASON FOR VISIT (unrecogniz ed section and content) Reason Onset Date Comments Med Refill 06/13/2024 Care Teams (unrecognized sec tion and content) Dental Laboratory Assistant Relationship Specialty Start Date End Date Mal Barnes MD [address], [place] [phone] PCP - External PCP Family Medicine 04/24/23 Gilberto Stockton MD [address] [place] [phone] PCP - [facility] 08/24/23 Gilberto Stockton MD [address] [place] [phone] PCP - General Family Medicine 03/09/24 Teressa Sierra NP [address] [place] [address] Nurse Practitioner Family Medicine 09/09/23 Dental Laboratory Assistant Relationship Specialty Start Date End Date Mal Barnes MD [address] [place] [address] PCP - External PCP Family Medicine 04/24/23 Gilberto Stockton MD [address] [place] [phone] PCP - [facility]oted 08/24/23 Gilberto Stockton MD [address] [place] [phone] PCP - General Family Medicine 03/09/24 Teressa Sierra NP [address] [place] [phone] Nurse Practitioner Family Medicine 09/09/23 Dental Laboratory Assistant Relationship Specialty Start Date End Date Mal Barnes MD [address] [place], [place] [phone] PCP - External PCP Family Medicine 04/24/23 Gilberto Stockton MD [address] [place] [phone] PCP - [facility]oted 08/24/23 Gilberto Stockton MD [address] [place] [phone] PCP - General Family Medicine 03/09/24 Teressa Sierra NP [address] [place] [phone] Nurse Practitioner Family Medicine 09/09/23 FOR RECORDS [...] BE BASED ON THE PRIMARY CLINICAL RECORDS. [facility] [employer] [facility]. provides no warranty or guarantee of the accuracy or completeness of information in this document.
== END 2024-06-14 15:17 | disposition home or self-care (01) ==
LOC: WC 15:16
PROVIDERS: PCP Nurse Practitioner; Visit Provider Physician Assistant
DX: I87.313 Chronic venous hypertension (idiopathic) with ulcer of bilateral lower extremity (principal); L97.218 Non-pressure chronic ulcer of right calf with other specified severity; L97.822 Non-pressure chronic ulcer of other part of left lower leg with fat layer exposed
CPT/HCPCS: 29580

== ENCOUNTER 2024-06-16 07:57 | Outpatient (OUT) | payer OTHER, SELFPAY ==
[2024-06-16 08:39] LABS: Bilirubin Urine NEGATIVE (NEGATIVE); Blood Urine NEGATIVE (NEGATIVE); Clarity Urine CLEAR (CLEAR); Color Urine YELLOW (YELLOW); Glucose Urine UA NEGATIVE (NEGATIVE); Ketones Urine NEGATIVE (NEGATIVE); Leukocyte Esterase Urine NEGATIVE (NEGATIVE); Nitrite Urine NEGATIVE (NEGATIVE); Protein Urine TRACE mg/dL (NEG/TRACE); Urobilinogen Urine >=8.0 EU/dL (0.2-1.0)
[2024-06-16 08:39] LABS: Hematocrit 36.9 % (42.0-54.0); Hemoglobin 12.2 g/dL (14.0-18.0); Mean Corpuscular HGB Conc 33.1 g/dL (29.9-35.2); Mean Corpuscular Hemoglobin 31.2 pg (25.9-34.0); Mean Corpuscular Volume 94.4 fL (80.0-94.0); Mean Platelet Volume 8.7 fL (9.5-13.5); Platelet Count 195 10^3/uL (150-450); Red Blood Count 3.91 10^6/uL (4.70-6.10); Red Cell Distribution Width 13.6 % (11.0-15.0); White Blood Count 7.2 10^3/uL (4.0-11.0)
[2024-06-16 08:41] LABS: Urine Microscopic Indicated NO
[2024-06-16 08:58] LABS: Creatinine Urine Random 142.04 mg/dL (20.00-300.00); Microalbum Creatinine Ratio Ur 71.1 mg/g (0.0-29.9); Microalbumin Urine Random 10.1 mg/dL (<=30.0)
[2024-06-16 09:01] LABS: Monocytes Absolute Manual 0.93 10^3/uL (0.30-0.80); Segmented Neut Absolute Manual 5.76 10^3/uL (1.4-6.5)
[2024-06-16 09:37] LABS: Alanine Aminotransferase 15 U/L (16-63); Albumin Globulin Ratio 0.5; Albumin Level 2.6 g/dL (3.4-5.0); Alkaline Phosphatase 95 U/L (46-116); Anion Gap 14.3; Aspartate Amino Transferase 13 U/L (15-37); BUN Creatinine Ratio 11.3; Bilirubin Total 1.3 mg/dL (0.2-1.0); Calcium 8.2 mg/dL (8.5-10.1); Carbon Dioxide 25.4 mmol/L (21.0-32.0); Chloride 99 mmol/L (98-107); Chol HDL Ratio 2.1; Cholesterol 108 mg/dL (<=200); Estimated GFR (African America 59 (>=60 mL/min/1.73m^2); Estimated GFR (Non-African Ame 48 (>=60 mL/min/1.73m^2); Globulin 4.9 g/dL; Glucose 141 mg/dL (74-106); HDL Cholesterol 51 mg/dL (40-60); LDL Cholesterol Calculated 48.2 mg/dL; Potassium 4.7 mmol/L (3.5-5.1); Sodium 134 mmol/L (136-145); Total Protein 7.5 g/dL (6.4-8.2); Triglycerides 44 mg/dL (<=150); VLDL CHOLESTEROL 8.8 mg/dL
[2024-06-16 10:00] LABS: Prostate Specific Antigen Scrn 1.47 ng/mL (<=4.00)
[2024-06-16 10:14] LABS: Estimated Average Glucose 108 mg/dL; Glycohemoglobin A1C 5.4 % (4.5-6.2)
== END 2024-06-23 12:08 | disposition home or self-care (01) ==
PROVIDERS: PCP Nurse Practitioner; Visit Provider Nurse Practitioner
DX: E11.22 Type 2 diabetes mellitus with diabetic chronic kidney disease (principal); N18.31 Chronic kidney disease, stage 3a; E78.2 Mixed hyperlipidemia; I12.9 Hypertensive chronic kidney disease with stage 1 through stage 4 chronic kidney disease, or unspecified chronic kidney disease; Z12.5 Encounter for screening for malignant neoplasm of prostate
CPT/HCPCS: 36415; 80053; 80061; 81003; 82043; 82570; 83036; 85007; 85027; G0103

== ENCOUNTER 2024-06-22 14:53 | Outpatient (OUT) | payer OTHER, SELFPAY | END 2024-06-22 14:54 | disposition home or self-care (01) | LOC: WC 14:53 | PROVIDERS: PCP Nurse Practitioner; Visit Provider Physician Assistant | DX: I87.313 Chronic venous hypertension (idiopathic) with ulcer of bilateral lower extremity (principal); L97.218 Non-pressure chronic ulcer of right calf with other specified severity; L97.822 Non-pressure chronic ulcer of other part of left lower leg with fat layer exposed | CPT/HCPCS: 29580 ==

== ENCOUNTER 2024-07-13 15:35 | Outpatient (OUT) | payer OTHER, SELFPAY | END 2024-07-13 15:36 | disposition home or self-care (01) | LOC: WC 15:35 | PROVIDERS: PCP Nurse Practitioner; Visit Provider Physician Assistant | DX: I87.313 Chronic venous hypertension (idiopathic) with ulcer of bilateral lower extremity (principal); L97.822 Non-pressure chronic ulcer of other part of left lower leg with fat layer exposed; L97.218 Non-pressure chronic ulcer of right calf with other specified severity | CPT/HCPCS: 29580 ==

== ENCOUNTER 2024-07-27 15:04 | Outpatient (OUT) | payer OTHER, SELFPAY | END 2024-07-27 15:05 | disposition home or self-care (01) | LOC: WC 15:04 | PROVIDERS: PCP Nurse Practitioner; Visit Provider Physician Assistant | DX: I87.311 Chronic venous hypertension (idiopathic) with ulcer of right lower extremity (principal); L97.218 Non-pressure chronic ulcer of right calf with other specified severity | CPT/HCPCS: 29580 ==

== ENCOUNTER 2024-08-04 11:01 | Outpatient (REF) | payer OTHER, SELFPAY ==
[2024-08-04 11:36] LABS: Basophils Percent Auto 0.5 % (0.2-2.0); Eosinophils Absolute Auto 0.2 10^3/uL (0.0-0.7); Eosinophils Percent Auto 3.4 % (0.9-7.0); Hematocrit 36.7 % (42.0-54.0); Hemoglobin 11.9 g/dL (14.0-18.0); Immature Granulocytes Abs Auto 0.03 10^3/uL (0.00-0.03); Immature Granulocytes Pct Auto 0.5 % (0.0-0.5); Lymphocytes Absolute Auto 1.3 10^3/uL (1.2-3.8); Lymphocytes Percent Auto 20.2 % (20.5-60.0); Mean Corpuscular HGB Conc 32.4 g/dL (29.9-35.2); Mean Corpuscular Hemoglobin 30.5 pg (25.9-34.0); Mean Corpuscular Volume 94.1 fL (80.0-94.0); Mean Platelet Volume 9.4 fL (9.5-13.5); Monocytes Absolute Auto 0.7 10^3/uL (0.3-0.8); Monocytes Percent Auto 10.9 % (1.7-12.0); Neutrophils Absolute Auto 4.2 10^3/uL (1.4-6.5); Neutrophils Percent Auto 64.5 % (43.0-75.0); Platelet Count 238 10^3/uL (150-450); Red Cell Distribution Width 13.8 % (11.0-15.0); White Blood Count 6.4 10^3/uL (4.0-11.0)
[2024-08-04 12:26] LABS: Alanine Aminotransferase 16 U/L (16-63); Albumin Globulin Ratio 0.6; Albumin Level 2.7 g/dL (3.4-5.0); Alkaline Phosphatase 97 U/L (46-116); Anion Gap 9.7; Aspartate Amino Transferase 23 U/L (15-37); BUN Creatinine Ratio 13.8; Bilirubin Total 0.9 mg/dL (0.2-1.0); Calcium 8.5 mg/dL (8.5-10.1); Chloride 104 mmol/L (98-107); Estimated GFR (African America >60 (>=60 mL/min/1.73m^2); Estimated GFR (Non-African Ame 53 (>=60 mL/min/1.73m^2); Globulin 4.4 g/dL; Glucose 123 mg/dL (74-106); Potassium 4.7 mmol/L (3.5-5.1); Sodium 139 mmol/L (136-145); Total Protein 7.1 g/dL (6.4-8.2)
== END 2024-08-04 11:02 | disposition home or self-care (01) ==
LOC: LAB 11:01
PROVIDERS: PCP Nurse Practitioner; Visit Provider Nurse Practitioner
DX: N18.31 Chronic kidney disease, stage 3a (principal)
CPT/HCPCS: 36415; 80053; 85025

== ENCOUNTER 2024-08-10 15:58 | Outpatient (OUT) | payer OTHER, SELFPAY | END 2024-08-10 15:59 | disposition home or self-care (01) | LOC: WC 15:58 | PROVIDERS: PCP Nurse Practitioner; Visit Provider Physician Assistant | DX: I87.311 Chronic venous hypertension (idiopathic) with ulcer of right lower extremity (principal); L97.218 Non-pressure chronic ulcer of right calf with other specified severity | CPT/HCPCS: 29580 ==

== ENCOUNTER 2024-09-06 16:24 | Outpatient (OUT) | payer MEDICARE, SELFPAY | END 2024-09-06 16:25 | disposition home or self-care (01) | LOC: WC 16:24 | PROVIDERS: PCP Nurse Practitioner; Visit Provider Physician Assistant | DX: I87.311 Chronic venous hypertension (idiopathic) with ulcer of right lower extremity (principal); L97.218 Non-pressure chronic ulcer of right calf with other specified severity | CPT/HCPCS: 29580 ==

== ENCOUNTER 2024-09-28 14:51 | Outpatient (OUT) | payer MEDICARE, SELFPAY | END 2024-09-28 14:52 | disposition home or self-care (01) | LOC: WC 14:53 | PROVIDERS: PCP Nurse Practitioner; Visit Provider Physician Assistant | DX: I87.311 Chronic venous hypertension (idiopathic) with ulcer of right lower extremity (principal); L97.218 Non-pressure chronic ulcer of right calf with other specified severity | CPT/HCPCS: 29580 ==

== ENCOUNTER 2024-10-11 08:48 | Outpatient (REF) | payer MEDICARE, SELFPAY ==
[2024-10-11 10:03] LABS: Anion Gap 6.7; BUN Creatinine Ratio 23.3; Calcium 8.6 mg/dL (8.5-10.1); Carbon Dioxide 30.2 mmol/L (21.0-32.0); Chloride 104 mmol/L (98-107); Estimated GFR (African America >60 (>=60 mL/min/1.73m^2); Estimated GFR (Non-African Ame 52 (>=60 mL/min/1.73m^2); Glucose 132 mg/dL (74-106); Potassium 4.9 mmol/L (3.5-5.1); Sodium 136 mmol/L (136-145)
== END 2024-10-11 08:49 | disposition home or self-care (01) ==
LOC: LAB 08:48
PROVIDERS: PCP Nurse Practitioner; Visit Provider Internal Medicine Interventional Cardiology
DX: I50.32 Chronic diastolic (congestive) heart failure (principal)
CPT/HCPCS: 36415; 80048

== ENCOUNTER 2024-10-17 19:51 | Outpatient (OUT) | payer MEDICARE, SELFPAY ==
--- OUTSIDE RECORDS SUMMARY | 2024-10-17 19:55 | XMS_ITS | CCD ---
Author Organization [facility] Care Team Providers Care 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 Name Role Phone MAL BARNES Primary Care Unavailable PAY, ROBIN Referring Unavailable MASROOR, GUDELIA Admitting Unavailable MASROOR, GUDELIA Attending Unavailable AKANKSHA UP Surgeon Unavailable [place] Procedure Practitioner Unavailab le [place] Procedure Practitioner Unavailab le MOLLY, GUDELIA Surgeon [...] JESSICA ., DR TODD Consulting Unavailable MIS, ESTAURDO Consulting Unavailable DEBI, CUBA H Consulting Unavailable MOLLY, DR MENEZES Admitting Unavailable HOUSE, DR MENEZES Attending Unavailable HULL, DR MENEZES Primary Care Unavailable MOLLY, DR MENEZES Consulting Unavailable ROBIN, DR NOREEN Oneill Consulting Unavailable MOUKARBEL, DR DOMINIQUE Admitting Unavailable MOUKARBEL, DR DOMINIQUE Attending Unavailable HOUSE, DR MENEZES Primary Care Unavailable MOUKARBEL, DR DOMINIQUE Consulting Unavailable MOUKARBEL, DR DOMINIQUE Admitting Unavailable MOUKARBEL, DR DOMINIQUE Attending Unavailable HULL, DR MENEZES Primary Care Unavailable BRANCHPORT, DR JOHANA Alvarado Consulting Unavailable MOUKARBEL, DR DOMINIQUE Consulting Unavailable MOUKARBEL, DR DOMINIQUE Admitting Unavailable MARTIN, DR DOMINIQUE Attending Unavailable MOLLY, DR MENEZES Primary Care Unavailable MARTIN, DR DOMINIQUE Consulting Unavailable Molly, Mal Primary Care Unavailable Lisha Ortega Attending Unavailable Lisha Ortega Admitting Unavailable Mal Barnes MD Unavailable [phone] Gilberto Stockton MD Unavailable Mariela BIG DATA DEVELOPER, Teressa Unavailable Gilberto Stockton MD Primary Care Provider Gilberto Stockton MD Unavailable MARIELA TERESSA Attending Unavailable TERESSA SIERRA Attending Unavailable TERESSA SIERRA Attending Unavailable TERESSA SIERRA Attending Unavailable CATINA SALAZAR Attending Unavailable ARIELLA GALLEGO Attending Unavailable ARIELLA GALLEGO Attending Unavailable Gilberto Stockton MD Unavailable Medications Current Medications Medication Drug Class(es) Dates Sig (Normalized) Sig (Original) [id number] 200 actuat albuterol 0.09 mg/actuat metered dose inhaler (17 sources) beta2-Adrenergic Agonist take 2 puff(s) by inhalation every six hours for wheezing albuterol HFA 90 mcg/act inhaler Inhale 2 puffs every 6 (six) hours if needed for shortness of breath or wheezing Active amLODIPine 5 mg oral tablet (18 sources) Dihydropyridine Calcium Channel Fitz take 1 tablet by mouth in the morning amLODIPine (Norvasc) 5 MG tablet Take 5 mg by mouth in the morning. Active take 1 tablet by donato th every twenty-four hours amLODIPine Besylate 10 MG 1 tablet Orall y Once a day Active aspirin 81 mg chewable tablet (17 sources) Platelet Aggregation Inhibitor, Nonsteroidal Anti-inflammatory Drug ASPIRIN 81 MG chewable tablet Chew 81 mg in the morning. 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 (CMS/HCC) Take 1 tablet (40 mg) by mouth at bedtime Take 40 mg by mouth at bedtime 90 tablet 1 09/27/2024 12/26/2024 Active Blood Glucose Monitoring Suppl (True Metrix Air Glucose Meter) w/Device kit (17 sources) Blood Glucose Monitoring Suppl (True Metrix Air Glucose Meter) w/Device kit 1 each Daily Active Blood Glucose Monitoring Suppl (True Metrix Go Glucose Meter) w/Device kit (17 sources) Blood Glucose Monitoring Suppl (True Metrix Go Glucose Meter) w/Device kit Active carvedilol 12.5 mg oral tablet (18 sources) alpha-Adrenergic Fitz, beta-Adrenergic Fitz Start: 024 End: 025 take 1 tablet by mouth in the morning carvedilol (Coreg) 12.5 MG tablet Indications: 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 Take with meals. 180 tablet 1 06/17/2024 Active celecoxib 200 mg oral capsule (18 sources) Nonsteroidal Anti-inflammatory Drug Start: 025 take 1 capsule by mouth once daily celecoxib (CeleBREX) 200 MG capsule Take 200 mg by mouth Daily 09/20/2024 Active Start: 03-23-2024 End: 09-15-2024 take 1 capsule by mouth once daily celecoxib (CeleBREX) 200 MG capsule Indications: Bilateral primary osteoarthritis of knee Take 1 capsule (200 mg) by mouth Daily 90 capsule 1 06/17/2024 09/15/2024 Active cephalexin 500 mg oral capsule (3 sources) Cephalosporin Antibacterial Start: 09-20-2024 End: 09-29-2024 take 1 capsule by mouth in the morning cephalexin (Keflex) 500 MG capsule Take 500 mg by mouth in the morning and 500 mg before bedtime. 09/20/2024 09/29/2024 Active ferrous sulfate 325 mg oral tablet (18 sources) Start: 07-13-2024 End: 10-11-2024 take 1 tablet by mouth at mealtime ferrous sulfate (FeroSul) 325 (65 Fe) MG tablet Indications: Anemia, unspecified Take 1 tablet (325 mg) by mouth in the morning. Take with meals. 90 tablet 1 07/13/2024 10/11/2024 Active 30 actuat fluticasone furoate 0.1 mg/actuat / umeclidinium 0.0625 mg/actuat / vilanterol 0.025 mg/actuat dry powder inhaler (17 sources) Anticholinergic, Corticosteroid, beta2-Adrenergic Agonist Start: 12-24-2023 Trelegy Ellipta 100-62.5-25 MCG/ACT aerosol powder 1 puff by Other route Daily 12/24/2023 Active furosemide 40 mg oral tablet (3 sources) Loop Diuretic Start: 10-03-2024 take 1 tablet by mouth once daily furosemide (Lasix) 40 MG tablet Take 40 mg by mouth Daily 10/03/2024 Active take 1 tablet by donato th every twenty-four hours Furosemide 40 MG 1 tablet Orally Once a day Active glipiZIDE 5 mg oral tablet (18 sources) Sulfonylurea Start: 03-25-2024 End: 12-07-2024 take 0.5 tablet by mouth once daily glipiZIDE (Glucotrol) 5 MG tablet Indications: Type 2 diabetes mellitus without complication, without long-term current use of insulin ([facility]) Take 0.5 tablets (2.5 mg) by mouth Daily 45 tablet 1 09/08/2024 12/07/2024 Active 24 hr isosorbide mononitrate 30 mg extended release oral tablet (17 sources) Nitrate Vasodilator take 1 tablet by [...] hrs Active spironolactone 25 mg oral tablet (16 sources) Aldosterone Antagonist Start: 09-11-2024 End: 12-10-2024 take 1 tablet by mouth once daily spironolactone (Aldactone) 25 MG tablet Indications: Localized edema Take 1 tablet (25 mg) by mouth Daily 90 tablet 1 09/11/2024 12/10/2024 Active Start: 12-25-2023 take 1 tablet by donato th once daily spironolactone (Aldactone) 25 MG tablet Indications: Localized edema Take 1 tablet (25 mg) by mouth Daily 90 tablet 1 12/25/2023 Active TraZODone & Diet Manage Prod (TRAZAMINE PO) (17 sources) TraZODone & Diet Manage Prod (TRAZAMINE [...] day Not-Taking Triamcinolone (2 sources) Corticosteroid Start: 020 Kenalog -40 mg Sep, 40 mg Start: 09-06-2019 Kenalog -40 mg Aug, 40 mg Problems Active Problems Problem Classification Problem Date Documented Date Episodic/Chronic Acute myocardial infarction (17 sources) Myocardial infarction; Translations: [Acute myocardial infarction, unspecified] Onset: 09-08-2023 09-08-2023 Chronic Aortic; peripheral; and visceral artery aneurysms (17 sources) Dilatation of aorta; Translations: [Aortic ectasia, unspecified site] Onset: 03-14-2024 03-14-2024 Chronic Cardiac dysrhythmias (20 sources) Unspecified atrial fibrillation; Translations: [Ventricular tachycardia] Onset: 07-03-2021 03-14-2024 Chronic Chronic kidney disease (20 sources) Chronic kidney disease stage 3A ; Translations: [Chronic kidney disease, stage 3a (HCC)] Onset: 03-14-2024 Resolved: 09-05-2024 03-14-2024 Chronic Chronic obstructive pulmonary disease and bronchiectasis (20 sources) Chronic obstructive lung disease; Translations: [Chronic obstructive pulmonary disease, unspecified] Onset: 09-08-2023 09-08-2023 Chronic Chronic ulcer of skin (20 sources) Chronic ulcer of lower extremity; Translations: [Non-pressure chronic ulcer of unspecified part of unspecified lower leg with unspecified severity] Onset: 03-14-2024 Resolved: 09-05-2024 03-14-2024 Chronic Congestive heart failure; nonhypertensive (20 sources) Chronic diastolic (congestive) heart failure; Translations: [Chronic diastolic heart failure] Onset: 07-14-2022 Chronic Coronary atherosclerosis and other heart disease (20 sources) 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; Translations: [Atherosclerotic heart disease of quechan coronary artery with other forms of angina pectoris] Onset: 08-29-2021 09-08-2023 Chronic Coronary atherosclerosis and other heart disease (3 sources) Presence of aortocoronary bypass graft; Translations: [PRESENCE AORTOCORONARY BYPASS GRAFT] Onset: 05-03-2022 Episodic Deficiency and other anemia (1 source) Anemia; Translations: [Anemia, unspecified] 07-13-2024 Episodic Diabetes mellitus with complications (20 sources) Type 2 diabetes mellitus with diabetic chronic kidney disease; Translations: [Type 2 diabetes mellitus with ulcer] Onset: 08-29-2022 Resolved: 03-14-2024 03-14-2024 Chronic Diabetes mellitus without complication (20 sources) Type 2 diabetes mellitus; Translations: [Type 2 diabetes mellitus without complications] Onset: 09-08-2023 03-14-2024 Chronic Disorders of lipid metabolism (20 sources) Pure hypercholesterolemia, unspecified; Translations: [Mixed hyperlipidemia] Onset: 08-29-2022 Resolved: 06-01-2024 06-01-2024 Chronic Essential hypertension (20 sources) Essential (primary) hypertension; Translations: [Essential hypertension] Onset: 04-14-2022 Chronic Hypertension with complications and secondary hypertension (1 source) Hypertensive heart and chronic kidney disease with heart failure and stage 1 through stage 4 chronic kidney disease, or unspecified chronic kidney disease; Translations: [HTN HRT CKD W/HF STAGE 1-4/UNS CKD] Onset: 08-29-2022 Chronic Neoplasms of unspecified nature or uncertain behavior (17 sources) Monoclonal gammopathy of uncertain significance; Translations: [Monoclonal gammopathy] Onset: 08-19-2012 12-14-2023 Chronic Osteoarthritis (20 sources) Osteoarthritis of right hip joint; Translations: [Unilateral primary osteoarthritis, right hip] Onset: 2022 Chronic Other aftercare (1 source) shelter (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; Translations: [SENIOR LIVING CURRENT USE OF ASPIRIN] Onset: 08-29-2022 Episodic Other aftercare (1 source) shelter (current) use of 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/antip latelets; Translations: [COLLECTION SPECIALIST ANTITHROMBOT/ANTIPLAT LETS] Onset: 08-29-2022 Episodic Other aftercare (1 source) Other exterminator helper termite (current) drug therapy; Translations: [OTH COLLECTION SPECIALIST CURRENT DRUG THERAPY] Onset: 08-29-2022 Episodic Other aftercare (1 source) superintendent container terminal (current) use of oral hypoglycemic drugs; Translations: [SENIOR LIVING USE ORAL HYPOGLYCEMIC DX] Onset: 08-29-2022 Episodic Other circulatory disease (1 source) Personal history of sudden cardiac arrest; Translations: [PERSONAL HISTORY SUDDEN CARD ARREST] Onset: 08-29-2022 Episodic Other connective tissue disease (1 source) History of total knee arthroplasty; Translations: [Presence of right artificial knee joint] Chronic Other diseases of veins and lymphatics (17 sources) Non-infectious disorder of lymphatics; Translations: [Other specified noninfective disorders of lymphatic vessels and lymph nodes] Onset: 12-17-2023 03-14-2024 Chronic Other diseases of veins and lymphatics (17 sources) Lymphedema; Translations: [Lymphedema, not elsewhere classified] Onset: 12-17-2023 03-14-2024 Chronic Other diseases of veins and lymphatics (7 sources) Bilateral lower limb edema; Translations: [Chronic venous hypertension (idiopathic) with ulcer of bilateral lower extremity] Onset: 09-27-2024 09-27-2024 Chronic Other diseases of veins and lymphatics (7 sources) Stasis dermatitis and venous ulcer of right lower extremity due to chronic peripheral venous hypertension; Translations: [Chronic venous hypertension (idiopathic) with ulcer and inflammation of right lower extremity] Onset: 09-27-2024 09-27-2024 Chronic Other ear and sense organ disorders (17 sources) Decreased hearing ; Translations: [Unspecified hearing loss, unspecified ear] Onset: 09-08-2023 09-08-2023 Chronic Other lower respiratory disease (5 sources) Shortness of breath; Translations: [SHORTNESS OF BREATH] Onset: 07-19-2022 Episodic Other nutritional; endocrine; and metabolic disorders (1 source) Body mass index (BMI) 40.0-44.9, adult; Translations: [BODY MASS INDEX BMI 40.0-44.9 ADULT] Onset: 08-29-2022 Chronic Other nutritional; endocrine; and metabolic disorders (1 source) Morbid (severe) obesity due to excess calories; Translations: [MORBID SEVERE OBES D/T EXCESS BRENT] Onset: 08-29-2022 Chronic Other nutritional; endocrine; and metabolic disorders (20 sources) Obesity caused by energy imbalance; Translations: [Morbid (severe) obesity due to excess calories] Onset: 09-09-2023 03-14-2024 Chronic Other nutritional; endocrine; and metabolic disorders (20 sources) Body mass index 40+ - severely obese; Translations: [Body mass index (BMI) 45.0-49.9, adult] Onset: 03-14-2024 03-14-2024 Chronic Peripheral and visceral atherosclerosis (17 sources) Peripheral vascular disease; Translations: [Peripheral vascular disease, unspecified] Onset: 08-19-2012 03-14-2024 Chronic Pneumonia (except that caused by tuberculosis or sexually transmitted disease) (1 source) Unspecified bacterial pneumonia; Translations: [UNSPECIFIED BACTERIAL PNEUMONIA] Onset: 08-29-2022 Episodic Residual codes; unclassified (1 source) Obstructive sleep apnea (adult) (pediatric); Translations: [OBSTRUCTIVE SLEEP APNEA] Onset: 08-29-2022 Chronic Residual codes; unclassified (17 sources) Sleep apnea; Translations: [Sleep apnea, unspecified] Onset: 09-08-2023 09-08-2023 Chronic Residual codes; unclassified (4 sources) Obstructive sleep apnea syndrome; Translations: [Obstructive sleep apnea (adult) (pediatric)] 06-01-2024 Chronic Residual codes; unclassified (1 source) Edema, unspecified; Translations: [EDEMA UNSPECIFIED] Onset: 08-29-2022 Episodic Residual codes; unclassified (1 source) Family history of ischemic heart disease and other diseases of the circulatory system; Translations: [FAM HX ISCHEMIC HRT DZ OTH DZ CIRC] Onset: 08-29-2022 Episodic Residual codes; unclassified (2 sources) Localized edema; Translations: [Localized edema] Onset: 10-03-2024 09-10-2024 Episodic Residual codes; unclassified (1 source) Localized edema; Translations: [Localized edema] Onset: 10-03-2024 Episodic Respiratory failure; insufficiency; arrest (adult) (1 [...] septic shock] Onset: 08-18-2022 Episodic Substance-related disorders (17 sources) Nicotine dependence; Translations: [Nicotine dependence, unspecified, [...] Classification Problem Date Documented Da te Episodic/Chronic Mood disorders (17 sources) Mood disorders Onset: 12-14-2023 12-14-2023 Nutritional deficiencies (17 sources) Iron deficiency; Translations: [Iron deficiency] Onset: 09-08-2023 09-08-2023 Episodic Other and unspecified benign neoplasm (17 sources) Benign neoplastic disease; Translations: [Benign neoplasm, unspecified site] Onset: 12-14-2023 12-14-2023 Episodic Other diseases of veins and lymphatics (19 sources) Venous insufficiency of leg; Translations: [Other specified disorders of veins] Onset: 12-14-2023 12-14-2023 Episodic Other gastrointestinal disorders (17 sources) Constipation; Translations: [Constipation, unspecified] Onset: 09-08-2023 09-08-2023 Episodic Other lower respiratory disease (17 sources) Cough; Translations: [Cough] Onset: 07-03-2021 12-14-2023 Episodic Other lower respiratory disease (17 sources) Solitary nodule of lung; Translations: [Solitary pulmonary nodule] Onset: 06-05-2023 12-14-2023 Episodic Other lower respiratory disease (2 sources) Other forms of dyspnea; Translations: [Other forms of dyspnea] Onset: 03-09-2024 Episodic Other non-traumatic joint disorders (4 sources) Pain in right hip; Translations: [PAIN IN RIGHT HIP] Onset: 05-08-2022 Episodic Other screening for suspected conditions (not mental disorders or infectious disease) (19 sources) Patient encounter status; Translations: [Encounter for screening for malignant neoplasm of prostate] Onset: 06-01-2024 06-01-2024 Episodic Nara-; endo-; and myocarditis; cardiomyopathy (except that caused by tuberculosis or sexually transmitted disease) (18 sources) Pericardial effusion (noninflammatory); Translations: [Pericardial effusion] Onset: 08-29-2021 12-14-2023 Episodic Residual codes; unclassified (19 sources) Bilateral lower limb edema; Translations: [Localized edema] Onset: 09-08-2023 09-08-2023 Episodic Residual codes; unclassified (17 sources) Edema; Translations: [Edema, unspecified] Onset: 07-03-2021 Resolved: 06-01-2024 12-14-2023 Episodic Syncope (17 sources) Syncope and collapse; Translations: [Syncope and collapse] Onset: 03-20-2021 12-14-2023 Episodic Unclassified (1 source) Other pericardial effusion (noninflammatory); Translations: [Other pericardial effusion (noninflammatory)] Onset: 10-03-2024 Varicose veins of lower extremity (20 sources) Varicose veins of lower extremity; Translations: [Varicose veins of bilateral lower extremities with pain] Onset: 09-08-2023 Resolved: 09-27-2024 09-08-2023 Episodic Results Test Name Value Interpretation Reference Range Facility ALL BASIC METABOLIC PANELon 10-11-2024 Anion gap [Moles/Vol] 6.7 mmol/L [facility] Calcium [Mass/Vol] 8.6 mg/dL 8.5 - 10. 1 mg/dL [facility] Chloride [Moles/Vol] 104 mmol/L 98 - 107 mmol/L [facility] CO2 [Moles/Vol] 30.2 mmol/L 21.0 - 32.0 mmol/L [facility] Creatinine [Mass/Vol] 1.33 mg/dL High 0.70 - 1.30 mg/dL [facility] GFR/1.73 sq M.predicted CKD-EPI (S/P/Bld) [Vol rate/Area] >60 >=60 mL/min/1.73m 2 [facility] Glucose [Mass/Vol] 132 mg/dL High 74 - 106 mg/dL [facility] Interpretation and review of laboratory results Abnormal [facility] Potassium [Moles/Vol] 4.9 mmol/L 3.5 - 5.1 mmol/L [facility] Sodium [Moles/Vol] 136 mmol/L 136 - 145 mmol/L [facility] TBH EGFR-NON AF KAZAKH 52 Low >=60 mL/min/1.73m 2 [facility] Urea nitrogen [Mass/Vol] 31 mg/dL High 7.0 - 18.0 mg/dL [facility] Urea nitrogen/Creatinine [Mass ratio] 23.3 mg/mg [facility] Office Visiton 10-03-2024 Follow-up visit [id number] HannahLuis M jennifer Desai 1945 M Date Provider Department Center 10/03/2024 CATINA ROBERTS SHILPI Santiago Family History Problem Relation Age of Onset Coronary artery disease Mother Family Status - Relation Status Age at Mother Level of Service:74954 [place] OFFICE/OUTPATIENT ESTABLISHED MOD MDM 30 MIN Normal [facility] ALL CBC WITH AUTO DIFFon BASOPHILS ABSOLUTE AUTO 0 [facility] Basophils/100 WBC (Bld) 0.5 % 0.2 - 2.0 % [facility] Eosinophils/100 WBC (Bld) 3.4 % 0.9 - 7.0 % [facility] Erythrocyte distribution width (RBC) [Ratio] 13.8 % 11.0 - 15.0 % [facility] Hematocrit (Bld) [Volume fraction] 36.7 % Low 42.0 - 54.0 % [facility] Hemoglobin (Bld) [Mass/Vol] 11.9 g/dL Low 14.0 - 18.0 g/dL [facility] IMMATURE GRANULOCYTES ABS AUTO 0.03 [facility] Immature granulocytes/100 WBC (Bld) 0.5 % 0.0 - 0.5 % [facility] Interpretation and review of laboratory results Abnormal [facility] LYMPHOCYTES ABSOLUTE AUTO 1.3 [facility] Lymphocytes/100 WBC (Bld) 20.2 % Low 20.5 - 60.0 % [facility] MCH (RBC) [Entitic mass] 30.5 pg 25.9 - 34.0 pg [facility] MCHC (RBC) [Mass/Vol] 32.4 g/dL 29.9 - 35.2 g/dL [facility] MCV (RBC) [Entitic vol] 94.1 fL High 80.0 - 94.0 fL [facility] MONOCYTES ABSOLUTE AUTO 0.7 [facility] Monocytes/100 WBC (Bld) 10.9 % 1.7 - 12.0 % [facility] NEUTROPHILS ABSOLUTE AUTO 4.2 [facility] Neutrophils/100 WBC (Bld) 64.5 % 43.0 - 75.0 % [facility] Platelet mean volume (Bld) [Entitic vol] 9.4 fL Low 9.5 - 13.5 fL [facility] TB EO # 0.2 [facility] PLT 238 [facility] RBC 3.9 Low [facility] WBC 6.4 [facility] ALL CBC WITH AUTO DIFFon Erythrocyte distribution width (RBC) [Ratio] 13.6 % 11.0 - 15.0 % [facility] Hematocrit (Bld) [Volume fraction] 36.9 % Low 42.0 - 54.0 % [facility] Hemoglobin (Bld) [Mass/Vol] 12.2 g/dL Low 14.0 - 18.0 g/dL [facility] Interpretation and review of laboratory results Abnormal [facility] MCH (RBC) [Entitic mass] 31.2 pg 25.9 - 34.0 pg [facility] MCHC (RBC) [Mass/Vol] 33.1 g/dL 29.9 - 35.2 g/dL [facility] MCV (RBC) [Entitic vol] 94.4 fL High 80.0 - 94.0 fL [facility] Platelet mean volume (Bld) [Entitic vol] 8.7 fL Low 9.5 - 13.5 fL [facility] PLT 195 [facility] RBC 3.91 Low [facility] WBC 7.2 [facility] 36on 03-29-2024 36 Regarding stress haroldo t result from 03/17/2024: CUAUHTEMOC Freeman MA Stress test looks fine No ischemia noted and no reversible defect noted. Patient informed. Normal [facility] Office Visiton 03-09-2024 Follow-up visit [id number] Luis M Mcqueen 1945 M Date Provider Department Center 03/09/2024 [facility] Family History Problem Relation Age of Onset Coronary artery disease Mother Family Status - Relation Status Age at Mother Level of Service:99401 [place] OFFICE/OUTPATIENT ESTABLISHED MOD MDM 30 MIN Reason for Visit and Comments: Follow-up [769441] - 3 month follow up [facility] Orders Onlyon 03-09-2024 Orders Only [id number] Luis M Mcqueen 1945 M Date Provider Department Center 03/09/2024 LIBRADO CALDERON [facility]IL[facility] Family History Problem Relation Age of Onset Coronary artery disease Mother Family Status - Relation Status Age at Mother [facility] 36on 01-02-2024 36 BP is looking good. Continue to hold amlodipine. Thanks [facility] 37on 12-17-2023 37 *Hold amlodipine *We will call you with a plan regarding your water pill. *Continue to check your blood pressure. Write down your readings. We will call you in 2 weeks for your readings. [facility] Office Visiton 12-17-2023 Follow-up visit [id number] Luis M Mcqueen 1945 M Date Provider Department Center 12/17/2023 ARIELLA GRAVES SHILPI Santiago Family History Problem Relation Age of Onset Coronary artery disease Mother Family Status - Relation Status Age at Mother Level of Service:35972 [place] OFFICE/OUTPATIENT ESTABLISHED MOD MDM 30 MIN Reason for Visit and Comments: Coronary Artery Disease [187] Hypertension [549611] [facility] BNPon 08-20-2022 Natriuretic peptide B (Bld) [Mass/Vol] 1748.0 pg/mL Normal <=1,800.0 [facility] Comment on above: Performed By: #### P OCGLUC #### [facility] [address] [address] [address] Deidre Tijerina CBC AUTO DIFFon 08-20-2022 BASO # 0.0 103/ul Normal 0.0-0.1 [facility] Comment on above: Performed By: #### C BC #### [facility] [address] [address] [address] Deidre Tijerina Basophils/100 WBC (Bld) 0.1 % Critically low 0.2-2.0 [facility] Comment on above: Performed By: #### C BC #### [facility] [address] [address] Dr. Deidre Tijerina EO # 0.0 103/ul Normal 0.0-0.7 [facility] Comment on above: Performed By: #### C BC #### [facility] [address] [address] [address] Deidre Tijerina Eosinophils/100 WBC (Bld) 0.0 % Critically low 0.9-7.0 [facility] Comment on above: Performed By: #### C BC #### [facility] [address] [address] [address] Deidre Tijerina Erythrocyte distribution width (RBC) [Ratio] 13.6 % Normal 11.0-15.0 [facility] Comment on above: Performed By: #### C BC #### [facility] [address] [place] [address] Dr. Deidre Tijerina Hematocrit (Bld) [Volume fraction] 30.1 % Critically low 42.0-54.0 [facility] Comment on above: Performed By: #### C BC #### [facility] [address] [place] [address] Dr. Deidre Tijerina Hemoglobin (Bld) [Mass/Vol] 9.8 g/dL Critically low 14.0-18.0 [facility] Comment on above: Performed By: #### C BC #### [facility] [address] [address] [address] Deidre Tijerina IG # 0.13 10e3/ul Critically high 0.00-0.03 [facility] Comment on above: Performed By: #### C BC #### [facility] [address] [address] [address] Deidre Tijerina IG % 1.0 % Critically high 0.0-0.5 [facility] Comment on above: Performed By: #### C BC #### [facility] [address] [address] [address] Deidre Tijerina LYMPH # 1.2 103/ul Normal 1.2-3.8 [facility] Comment on above: Performed By: #### C BC #### [facility] [address] [address] [address] Deidre Tijerina Lymphocytes/100 WBC (Bld) 8.6 % Critically low 20.5-60.0 [facility] Comment on above: Performed By: #### C BC #### [facility] [address] [address] [address] Deidre Tijerina MANUAL DIFF REQ NO Normal [facility] Comment on above: Performed By: #### C BC #### [facility] [address] [place] [address] Dr. Deidre Tijerina MCH (RBC) [Entitic mass] 30.7 pg Normal 25.9-34.0 [facility] Comment on above: Performed By: #### C BC #### [facility] [address] [place] [address] Dr. Deidre Tijerina MCHC (RBC) [Mass/Vol] 32.6 g/dL Normal 29.9-35.2 [facility] Comment on above: Performed By: #### C BC #### [facility] [address] [place] [address] Dr. Deidre Tijerina MCV (RBC) [Entitic vol] 94.4 fL Critically high 80.0-94.0 [facility] Comment on above: Performed By: #### C BC #### [facility] [address] [place] [address] Dr. Deidre Tijerina MONO # 0.8 103/ul Normal 0.3-0.8 [facility] Comment on above: Performed By: #### C BC #### [facility] [address] [place] [address] Dr. Deidre Tijerina Monocytes/100 WBC (Bld) 6.2 % Normal 1.7-12.0 [facility] Comment on above: Performed By: #### C BC #### [facility] [address] [place] [address] Dr. Deidre Tijerina NEUT # 11.3 103/ul Critically high 1.4-6.5 [facility] Comment on above: Performed By: #### C BC #### [facility] [address] [address] [address] Deidre Tijerina Neutrophils/100 WBC (Bld) 84.1 % Critically high 43.0-75.0 [facility] Comment on above: Performed By: #### C BC #### [facility] [address] [address] [address] Deidre Tijerina Platelet mean volume (Bld) [Entitic vol] 9.3 fL Critically low 9.5-13.5 [facility] Comment on above: Performed By: #### C BC #### [facility] [address] [address] [address] Deidre Tijerina PLT 204 103/ul Normal 150-450 [facility] Comment on above: Performed By: #### C BC #### [facility] [address] [address] [address] Deidre Tijerina RBC 3.19 106/ul Critically low 4.70-6.10 [facility] Comment on above: Performed By: #### C BC #### [facility] [address] [address] [address] Deidre Tijerina WBC 13.5 103/ul Critically high 4.0-11.0 [facility] Comment on above: Performed By: #### C BC #### [facility] [address] [address] [address] Deidre Tijerina POINT OF CARE GLUCOSEon 07-25 Glucose [Mass/Vol] 164 mg/dL Critically high 74-106 T [facility] Comment on above: Performed By: #### P OCGLUC #### [facility] [address] [address] [address] Deidre Tijerina PROF CHEM 8 (BAS METB)on Anion gap [Moles/Vol] 10.5 mmol/L Normal [facility] Comment on above: Performed By: #### P OCGLUC #### [facility] [address] [address] [address] Deidre Tijerina Calcium [Mass/Vol] 8.1 mg/dL Critically low 8.5-10.1 [facility] Comment on above: Performed By: #### P OCGLUC #### [facility] [address] [address] [address] Deidre Tijerina Chloride [Moles/Vol] 100 mmol/L Normal 98-107 [facility] Comment on above: Performed By: #### P OCGLUC #### [facility] [address] [address] [address] Deidre Tijerina CO2 [Moles/Vol] 24.4 mmol/L Normal 21.0-32.0 [facility] Comment on above: Performed By: #### P OCGLUC #### [facility] [address] [address] [address] Deidre Tijerina Creatinine [Mass/Vol] 1.17 mg/dL Normal 0.70-1.30 [facility] Comment on above: Performed By: #### P OCGLUC #### [facility] [address] [address] [address] Deidre Tijerina EGFR-AF KAZAKH >60 Normal >=60 [facility] Comment on above: Performed By: #### P OCGLUC #### [facility] [address] [address] [address] Deidre Tijerina EGFR-NON AF KAZAKH 60 mL/min/1.73m2 Normal >=60 [facility] Comment on above: Performed By: #### P OCGLUC #### [facility] [address] [address] [address] Deidre Tijerina Glucose [Mass/Vol] 145 mg/dL Critically high 74-106 [facility] Comment on above: Performed By: #### P OCGLUC #### [facility] [address] [address] [address] Deidre Tijerina Potassium [Moles/Vol] 3.9 mmol/L Normal 3.5-5.1 [facility] Comment on above: Performed By: #### P OCGLUC #### [facility] [address] [address] [address] Deidre Tijerina Sodium [Moles/Vol] 131 mmol/L Critically low 136-145 Th [facility] Comment on above: Performed By: #### P OCGLUC #### [facility] [address] [place], [place] [address] Dr. Deidre Tijerina Urea nitrogen [Mass/Vol] 37.0 mg/dL Critically high 7.0-18.0 [facility] Comment on above: Performed By: #### P OCGLUC #### [facility] [id number] Deidre Tijerina Urea nitrogen/Creatinine [Mass ratio] 31.6 mg/mg Normal [facility] Comment on above: Performed By: #### P OCGLUC #### [facility] [id number] Deidre Tijerina XR CHEST 1 Von [...] ESTUARDO ABEBE Date: 2022-08-20 13:26 Normal [facility] BNPon 08-19-2022 Natriuretic peptide B (Bld) [Mass/Vol] 955.0 pg/mL Normal <=1,800.0 [facility] Comment on above: Performed By: #### C BC #### [facility] [address] [place], [place] [address] Dr. Deidre Tijerina CBC W MANUAL DIFFon 08-19-20 22 ATYPICAL LYMPH # 0.28 103/ul Normal [facility] Comment on above: Performed By: #### P OCGLUC #### [facility] [address] [place], [place] [address] Dr. Deidre Tijerina ATYPICAL LYMPH % 2 % Normal [facility] Comment on above: Performed By: #### P OCGLUC #### [facility] [address] [address] [address] Deidre Tijerina BAND # 0.0 103/ul Normal 0.0-0.3 [facility] Comment on above: Performed By: #### P OCGLUC #### [facility] [address] [place] [address] Dr. Deidre Tijerina BAND % 0 % Normal 0-5 [facility] Comment on above: Performed By: #### P OCGLUC #### [facility] [address] [place] [address] Dr. Deidre Tijerina BASOM # 0.00 103/ul Normal 0.00-0.10 [facility] Comment on above: Performed By: #### P OCGLUC #### [facility] [address] [place] [address] Dr. Deidre Tijerina BASOM % 0.0 % Critically low 0.2-2.0 [facility] Comment on above: Performed By: #### P OCGLUC #### [facility] [address] [place] [address] Dr. Deidre Tijerina BLAST # Normal [facility] Comment on above: Performed By: #### P OCGLUC #### [facility] [address] [place] [address] Dr. Deidre Tijerina BLAST % Normal [facility] Comment on above: Performed By: #### P OCGLUC #### [facility] [address] [place] [address] Dr. Deidre Tijerina CORRECTED WBC Normal 4.0-11.0 [facility] Comment on above: Performed By: #### P OCGLUC #### [facility] [address] [place] [address] Dr. Deidre Tijerina EOS # 0.00 103/ul Normal 0.00-0.70 [facility] Comment on above: Performed By: #### P OCGLUC #### [facility] [address] [place] [address] Dr. Deidre Tijerina EOS% 0.0 % Critically low 0.9-7.0 [facility] Comment on above: Performed By: #### P OCGLUC #### [facility] [address] [address] [address] Deidre Tijerina HCT 30.4 % Critically low 42.0-54.0 [facility] Comment on above: Performed By: #### P OCGLUC #### [facility] [address] [address] [address] Deidre Tijerina HGB 9.8 g/dl Critically low 14.0-18.0 [facility] Comment on above: Performed By: #### P OCGLUC #### [facility] [address] [address] [address] Deidre Tijerina LYMPHM # 0.43 103/ul Critically low 1.20-3.80 [facility] Comment on above: Performed By: #### P OCGLUC #### [facility] [address] [place] [address] Dr. Deidre Tijerina LYMPHM% 3.0 % Critically low 20.5-60.0 [facility] Comment on above: Performed By: #### P OCGLUC #### [facility] [address] [place] [address] Dr. Deidre Tijerina MCH 30.8 pg Normal 25.9-34.0 [facility] Comment on above: Performed By: #### P OCGLUC #### [facility] [address] [address] [address] Deidre Tijerina MCHC 32.2 g/dl Normal 29.9-35.2 [facility] Comment on above: Performed By: #### P OCGLUC #### [facility] [address] [address] [address] Deidre Tijerina MCV 95.6 fL Critically high 80.0-94.0 [facility] Comment on above: Performed By: #### P OCGLUC #### [facility] [address] [place] [address] Dr. Deidre Tijerina METAMYELOCYTE # Normal [facility] Comment on above: Performed By: #### P OCGLUC #### [facility] [address] [address] [address] Deidre Tijerina METAMYELOCYTE % Normal [facility] Comment on above: Performed By: #### P OCGLUC #### [facility] [address] [address] [address] Deidre Tijerina MONOM# 0.57 103/ul Normal 0.30-0.80 [facility] Comment on above: Performed By: #### P OCGLUC #### [facility] [address] [address] [address] Deidre Tijerina MONOM% 4.0 % Normal 1.7-12.0 [facility] Comment on above: Performed By: #### P OCGLUC #### [facility] [address] [address] [address] Deidre Tijerina MPV 9.1 fL Critically low 9.5-13.5 [facility] Comment on above: Performed By: #### P OCGLUC #### [facility] [address] [place] [address] Dr. Deidre Tijerina MYELOCYTE # Normal [facility] Comment on above: Performed By: #### P OCGLUC #### [facility] [address] [address] [address] Deidre Tijerina MYELOCYTE % Normal [facility] Comment on above: Performed By: #### P OCGLUC #### [facility] [address] [address] [address] Deidre Tijerina NRBC Normal [facility] Comment on above: Performed By: #### P OCGLUC #### [facility] [address] [address] [address] Deidre Tijerina PLT 188 103/ul Normal 150-450 [facility] Comment on above: Performed By: #### P OCGLUC #### [facility] [address] [address] [address] Deidre Tijerina RBC 3.18 106/ul Critically low 4.70-6.10 [facility] Comment on above: Performed By: #### P OCGLUC #### [facility] [address] [address] [address] Deidre Tijerina RDW 14.0 % Normal 11.0-15.0 [facility] Comment on above: Performed By: #### P OCGLUC #### [facility] [address] [address] [address] Deidre Tijerina SEG # 12.92 103/ul Critically high 1.40-6.50 [facility] Comment on above: Performed By: #### P OCGLUC #### [facility] [address] [address] [address] Deidre Tijerina SEG % 91.0 % Critically high 43.0-75.0 [facility] Comment on above: Performed By: #### P OCGLUC #### [facility] [address] [address] [address] Deidre Tijerina WBC 14.2 103/ul Critically high 4.0-11.0 [facility] Comment on above: Performed By: #### P OCGLUC #### [facility] [address] [address] [address] Deidre Tijerina POINT OF CARE GLUCOSEon 07-25 Glucose [Mass/Vol] 305 mg/dL Critically high [facility]106 [facility] Comment on above: Performed By: #### P OCGLUC #### [facility] [address] [address] [address] Deidre Tijerina Glucose [Mass/Vol] 181 mg/dL Critically high [address] [place] [address] Comment on above: Performed By: #### C BC #### [facility] [address] [address] [address] Deidre Tijerina Glucose [Mass/Vol] 342 mg/dL Critically high [facility]106 [facility] Comment on above: Performed By: #### P OCGLUC #### [facility] [address] [address] [address] Deidre Tijerina Glucose [Mass/Vol] 192 mg/dL Critically high [facility]106 [facility] Comment on above: Performed By: #### P OCGLUC #### [facility] [address] [address] [address] Deidre Tijerina PROF CHEM 8 (BAS METB)on Anion gap [Moles/Vol] 10.3 mmol/L [facility] [place] [facility] Comment on above: Performed By: #### B MP, BNP #### [facility] [address] [address] [address] Deidre Tijerina Calcium [Mass/Vol] 7.9 mg/dL Critically low 8.5-10.1 [facility] Comment on above: Performed By: #### B MP, BNP #### [facility] [address] [address] [address] Deidre Tijerina Chloride [Moles/Vol] 100 mmol/L Normal 98-107 [facility] Comment on above: Performed By: #### B MP, BNP #### [facility] [address] [address] [address] Deidre Tijerina CO2 [Moles/Vol] 26.6 mmol/L Normal 21.0-32.0 [facility] Comment on above: Performed By: #### B MP, BNP #### [facility] [address] [address] [address] Deidre Tijerina Creatinine [Mass/Vol] 1.29 mg/dL Normal 0.70-1.30 [facility] Comment on above: Performed By: #### B MP, BNP #### [facility] [address] [address] [address] Deidre Tijerina EGFR-AF KAZAKH >60 Normal >=60 [facility] Comment on above: Performed By: #### B MP, BNP #### [facility] [address] [address] [address] Deidre Tijerina EGFR-NON AF KAZAKH 54 mL/min/1.73m2 Critically low >=60 [facility] Comment on above: Performed By: #### B MP, BNP #### [facility] [address] [address] [address] Deidre Tijerina Glucose [Mass/Vol] 190 mg/dL Critically high 74-106 T [facility] Comment on above: Performed By: #### B MP, BNP #### [facility] [address] [address] [address] Deidre Tijerina Potassium [Moles/Vol] 3.9 mmol/L Normal 3.5-5.1 [facility] Comment on above: Performed By: #### B MP, BNP #### [facility] [address] [address] [address] Deidre Tijerina Sodium [Moles/Vol] 133 mmol/L Critically low 136-145 [facility] Comment on above: Performed By: #### B MP, BNP #### [facility] [address] [address] [address] Deidre Tijerina Urea nitrogen [Mass/Vol] 35.0 mg/dL Critically high 7.0-18.0 [facility] Comment on above: Performed By: #### B MP, BNP #### [facility] [address] [address] [address] Deidre Tijerina Urea nitrogen/Creatinine [Mass ratio] 27.1 mg/mg Normal [facility] Comment on above: Performed By: #### B MP, BNP #### [facility] [address] [address] [address] Deidre Tijerina BILIRUBIN CONJUGATED (DIRECT )on 08-18-2022 BILI, CONJUGATED 0.4 mg/dL Critically high 0.0-0.2 [facility] Comment on above: Performed By: #### P OCGLUC #### [facility] [address] [place] [address] Dr. Deidre Tijerina BLOOD GASES BTYon 08-18-2022 02 MODE BIPAP Normal [facility] Comment on above: Performed By: #### P OCGLUC #### [facility] [address] [address] [address] Deidre Tijerina ALLENS TEST Positive Normal [facility] Comment on above: Performed By: #### P OCGLUC #### [facility] [address] [address] [address] Deidre Tijerina Base excess Calc (Bld) [Moles/Vol] 1.0 mmol/L Normal -2.0-2.0 [facility] Comment on above: Performed By: #### P OCGLUC #### [facility] [address] [place] [address] Dr. Deidre Tijerina BIPAP PRESSURE 16/8 Normal [facility] Comment on above: Performed By: #### P OCGLUC #### [facility] [address] [address] [address] Deidre Tijerina CPAP [facility] [place] [facility] Comment on above: Performed By: #### P OCGLUC #### [facility] [address] [address] [address] Deidre Tijerina FIO2 35.00 % Normal [facility] Comment on above: Performed By: #### P OCGLUC #### [facility] [address] [address] [address] Deidre Tijerina HCO3 (Bld) [Moles/Vol] 25.0 mmol/L Normal 22.0-26.0 [facility] Comment on above: Performed By: #### P OCGLUC #### [facility] [address] [place] [address] Dr. Deidre Tijerina LPM [facility] [place] [facility] Comment on above: Performed By: #### P OCGLUC #### [facility] [address] [address] [address] Deidre Tijerina MINUTE VOLUME 21 L [facility] Comment on above: Performed By: #### P OCGLUC #### [facility] [address] [place] [address] Dr. Deidre Tijerina Oxygen (Bld) [Partial pressure] 83.4 mm[Hg] Normal 80.0-100.0 [facility] Comment on above: Performed By: #### P OCGLUC #### [facility] [address] [place] [address] Dr. Deidre Tijerina Oxygen saturation in Blood 97.5 % Normal 95.0-100.0 [facility] Comment on above: Performed By: #### P OCGLUC #### [facility] [address] [place] [address] Dr. Deidre Tijerina PCO2 36.2 mmHg Normal 35.0-45.0 [facility] Comment on above: Performed By: #### P OCGLUC #### [facility] [address] [address] [address] Deidre Tijerina PEEP 8 Normal [facility] Comment on above: Performed By: #### P OCGLUC #### [facility] [address] [address] [address] Deidre Tijerina pH (Bld) 7.440 [pH] Normal 7.350-7.450 [facility] Comment on above: Performed By: #### P OCGLUC #### [facility] [address] [address] [address] Deidre Tijerina PIP 17 [facility] [place] [facility] Comment on above: Performed By: #### P OCGLUC #### [facility] [address] [address] [address] Deidre Tijerina PS 8 [facility] [place] [facility] Comment on above: Performed By: #### P OCGLUC #### [facility] [address] [place] [address] Dr. Deidre Tijerina PUNCTURE SITE RR Normal [facility] Comment on above: Performed By: #### P OCGLUC #### [facility] [address] [address] [address] Deidre Tijerina RATE 14 bpm [facility] [place] [facility] Comment on above: Performed By: #### P OCGLUC #### [facility] [address] [address] [address] Deidre Tijerina VENT MODE [facility] [place] [facility] Comment on above: Performed By: #### P OCGLUC #### [facility] [address] [place] [address] Dr. Deidre Tijerina VT 945 ML [facility] [place] [facility] Comment on above: Performed By: #### P OCGLUC #### [facility] [address] [address] [address] Deidre Tijerina BNPon 08-18-2022 Natriuretic peptide B (Bld) [Mass/Vol] 2561.0 pg/mL Critically high <=1,800.0 [facility] Comment on above: Performed By: #### P OCGLUC #### [facility] [address] [place] [address] Dr. Deidre Tijerina CBC W MANUAL DIFFon 08-18-20 ANISOCYTOSIS 1+ [facility] [place] [facility] Comment on above: Performed By: #### C BCMAN #### [facility] [address] [address] [address] Deidre Tijerina ATYPICAL LYMPH # Normal [facility] Comment on above: Performed By: #### C BCMAN #### [facility] [address] [address] [address] Deidre Tijerina ATYPICAL LYMPH % Normal [facility] Comment on above: Performed By: #### C BCMAN #### [facility] [address] [address] [address] Deidre Tijerina BAND # 1.2 103/ul Critically high 0.0-0.3 [facility] Comment on above: Performed By: #### C BCMAN #### [facility] [address] [place] [address] Dr. Deidre Tijerina BAND % 7 % Critically high 0-5 [facility] Comment on above: Performed By: #### C BCNICOLASA #### [facility] [address] [place] [address] Dr. Deidre Tijerina BASOM # 0.00 103/ul Normal 0.00-0.10 [facility] Comment on above: Performed By: #### C BCNICOLASA #### [facility] [address] [place] [address] Dr. Deidre Tijerina BASOM % 0.0 % Critically low 0.2-2.0 [facility] Comment on above: Performed By: #### C BCMAN #### [facility] [address] [place] [address] Dr. Deidre Tijerina BLAST # Normal [facility] Comment on above: Performed By: #### C BCMAN #### [facility] [address] [place] [address] Dr. Deidre Tijerina BLAST % Normal [facility] Comment on above: Performed By: #### C BCMAN #### [facility] [address] [place] [address] Dr. Deidre Tijerina CORRECTED WBC Normal 4.0-11.0 [facility] Comment on above: Performed By: #### C ADALGISA #### [facility] [address] [place] [address] Dr. Deidre Tijerina EOS # 0.17 103/ul Normal 0.00-0.70 [facility] Comment on above: Performed By: #### C ADALGISA #### [facility] [address] [place] [address] Dr. Deidre Tijerina EOS% 1.0 % Normal 0.9-7.0 [facility] Comment on above: Performed By: #### C ADALGISA #### [facility] [address] [address] [address] Deidre Tijerina HCT 34.8 % Critically low 42.0-54.0 [facility] Comment on above: Performed By: #### C ADALGISA #### [facility] [address] [place] [address] Dr. Deidre Tijerina HGB 11.5 g/dl Critically low 14.0-18.0 [facility] Comment on above: Performed By: #### C ADALGISA #### [facility] [address] [place] [address] Dr. Deidre Tijerina LYMPHM # 1.20 103/ul Normal 1.20-3.80 [facility] Comment on above: Performed By: #### C ADALGISA #### [facility] [address] [place] [address] Dr. Deidre Tijerina LYMPHM% 7.0 % Critically low 20.5-60.0 [facility] Comment on above: Performed By: #### C ADALGISA #### [facility] [address] [place] [address] Dr. Deidre Tijerina MCH 31.5 pg Normal 25.9-34.0 [facility] Comment on above: Performed By: #### C ADALGISA #### [facility] [facility] [address] [place] [address] Dr. Deidre Tijerina MCHC 33.0 g/dl Normal 29.9-35.2 [facility] Comment on above: Performed By: #### C ADALGISA #### [facility] [address] [place] [address] Dr. Deidre Tijerina MCV 95.3 fL Critically high 80.0-94.0 [facility] Comment on above: Performed By: #### C ADALGISA #### [facility] [address] [address] [address] Deidre Tijerina METAMYELOCYTE # Normal [facility] Comment on above: Performed By: #### C ADALGISA #### [facility] [address] [address] [address] Deidre Tijerina METAMYELOCYTE % Normal [facility] Comment on above: Performed By: #### C ADALGISA #### [facility] [address] [address] [address] Deidre Tijerina MONOM# 1.03 103/ul Critically high 0.30-0.80 [facility] Comment on above: Performed By: #### C ADALGISA #### [facility] [address] [address] [address] Deidre Tijerina MONOM% 6.0 % Normal 1.7-12.0 [facility] Comment on above: Performed By: #### C ADALGISA #### [facility] [address] [address] [address] Deidre Tijerina MPV 8.7 fL Critically low 9.5-13.5 [facility] Comment on above: Performed By: #### C ADALGISA #### [facility] [address] [address] [address] Deidre Tijerina MYELOCYTE # Normal [facility] Comment on above: Performed By: #### C ADALGISA #### [facility] [address] [address] [address] Deidre Tijerina MYELOCYTE % Normal [facility] Comment on above: Performed By: #### C ADALGISA #### [facility] [address] [address] [address] Deidre Tijerina NRBC Normal [facility] Comment on above: Performed By: #### C ADALGISA #### [facility] [address] [address] [address] Deidre Tijerina PLT 212 103/ul Normal 150-450 [facility] Comment on above: Performed By: #### C ADALGISA #### [facility] [id number] Deidre Tijerina RBC 3.65 106/ul Critically low 4.70-6.10 [facility] Comment on above: Performed By: #### C ADALGISA #### [facility] [address] [address] [address] Deidre Tijerina RDW 14.0 % Normal 11.0-15.0 [facility] Comment on above: Performed By: #### C ADALGISA #### [facility] [address] [address] [address] Deidre Tijerina SEG # 13.59 103/ul Critically high 1.40-6.50 [facility] Comment on above: Performed By: #### C ADALGISA #### [facility] [address] [address] [address] Deidre Tijerina SEG % 79.0 % Critically high 43.0-75.0 [facility] Comment on above: Performed By: #### C ADALGISA #### [facility] [address] [address] [address] Deidre Tijerina WBC 17.2 103/ul Critically high 4.0-11.0 [facility] Comment on above: Performed By: #### C ADALGISA #### [facility] [id number] Deidre Tijerina CT CHEST WO CONon [...] NOREEN KELLY Date: 2022-08-18 12:12 Normal [facility] CULTURE BLOODon 08-18-2022 Microscopic examination of blood, culture Culture Observations: NO GROWTH AT 5 DAYS. Normal [facility] Comment on above: Performed By: #### C BC #### [facility] [address] [address] [address] Deidre Tijerina Microscopic examination of blood, culture Culture Observations: NO GROWTH AT 5 DAYS. Normal [facility] Comment on above: Performed By: #### C BC #### [facility] [address] [place] [address] Dr. Deidre Tijerina Covid-19 PCR ([facility])on 07-25 SARS-CoV-2 (COVID-19) RNA ISA+probe Ql (Unsp spec) Not detected Normal NOT DETECTED [facility] Comment on above: Result Comment: When [...] for this test is supported by the [employer] Installer of Health and Human Service's declaration that [...] used). Performed By: #### P OCGLUC #### [facility] [address] [place] [address] Dr. Deidre Tijerina ECHO LIMITED STUDYon 022 ECHO LIMITED STUDY Patient: UMM MCQUEEN Exam Date: 08/18/2022 : 1945 Gender:M Ordering : SHAIKH Zay CARRERA . Admission #: [id number] Family : Order #: [id number] CLICK HERE TO VIEW EXAM ECHOCARDIOGRAM REPORT [...] M.D. on 08/26/2022 at 09:00 Normal [facility] INFLUENZA A AND B AGon 08-18 INFLUANEGH SEE BELOW Normal [facility] Comment on above: Result Comment: Nega tive for Flu A protein angiten. Infection due to Flu A cannot be ruled out. Flu A angiten in the sample may be below the detection limit of the test. Performed By: #### P OCGLUC #### [facility] [address] [place] [address] Dr. Deid[facility]ijer[facility] SEE BELOW Normal [facility] Comment on above: Result Comment: Nega tive for Flu B protein antigen. Infection due to Flu B cannot be ruled out. Flu B antigen in the sample may be below the detection limit of the test. Performed By: #### P OCGLUC #### [facility] [address] [place] [address] Dr. Deidre Tijerina INFLUENZA A AG Negative Normal NEGATIVE SEE COMMENT [facility] Comment on above: Performed By: #### P OCGLUC #### [facility] [address] [place] [address] Dr. Deidre Tijerina INFLUENZA B AG Negative Normal NEGATIVE SEE COMMENT [facility] Comment on above: Performed By: #### P OCGLUC #### [facility] [address] [place] [address] Dr. Deidre Tijerina INTERNAL CONTROLS Within Normal Limits Normal Wi thin Normal Limits [facility] Comment on above: Performed By: #### P OCGLUC #### [facility] [address] [place] [address] Dr. Deidre Tijerina LACTATE/LACTIC ACIDon 2021 Lactate [Moles/Vol] 2.0 mmol/L Critically high 0.4-1.9 [facility] Comment on above: Performed By: #### P OCGLUC #### [facility] [address] [place] [address] Dr. Deidre Tijerina Lactate [Moles/Vol] 2.0 mmol/L Critically high 0.4-1.9 [facility] Comment on above: Performed By: #### P OCGLUC #### [facility] [address] [address] [address] Deidre Tijerina POINT OF CARE GLUCOSEon 07-25 Glucose [Mass/Vol] 228 mg/dL Critically high -106 [facility] Comment on above: Performed By: #### P OCGLUC #### [facility] [address] [address] [address] Deidre Tijerina Glucose [Mass/Vol] 119 mg/dL Critically high -106 [facility] Comment on above: Performed By: #### P OCGLUC #### [facility] [address] [address] [address] Deidre Tijerina Glucose [Mass/Vol] 161 mg/dL Critically high [address] [place] [address] Comment on above: Performed By: #### C BC #### [facility] [address] [address] [address] Deidre Tijerina PROF 14(COMP METB)on 022 Albumin [Mass/Vol] 2.9 g/dL Critically low 3.4-5.0 [facility] Comment on above: Performed By: #### P OCGLUC #### [facility] [address] [place] [address] Dr. Deidre Tijerina Albumin/Globulin [Mass ratio] 0.6 {ratio} [facility] Comment on above: Performed By: #### P OCGLUC #### [facility] [address] [address] [address] Deidre Tijerina ALP [Catalytic activity/Vol] 71 U/L Normal 46-116 [facility] Comment on above: Performed By: #### P OCGLUC #### [facility] [address] [address] [address] Deidre Tijerina ALT [Catalytic activity/Vol] 13 U/L Critically low 16-63 [facility] Comment on above: Performed By: #### P OCGLUC #### [facility] [address] [address] [address] Deidre Tijerina Anion gap [Moles/Vol] 12.3 mmol/L Normal [facility] Comment on above: Performed By: #### P OCGLUC #### [facility] [address] [address] [address] Deidre Tijerina AST [Catalytic activity/Vol] 14 U/L Critically low 15-37 [facility] Comment on above: Performed By: #### P OCGLUC #### [facility] [address] [address] [address] Deidre Tijerina Bilirubin [Mass/Vol] 2.6 mg/dL Critically high 0.2-1.0 [facility] Comment on above: Performed By: #### P OCGLUC #### [facility] [address] [address] [address] Deidre Tijerina Calcium [Mass/Vol] 8.5 mg/dL Normal 8.5-10.1 [facility] Comment on above: Performed By: #### P OCGLUC #### [facility] [address] [address] [address] Deidre Tijerina Chloride [Moles/Vol] 98 mmol/L Normal 98-107 [facility] Comment on above: Performed By: #### P OCGLUC #### [facility] [address] [address] [address] Deidre Tijerina CO2 [Moles/Vol] 26.0 mmol/L Normal 21.0-32.0 [facility] Comment on above: Performed By: #### P OCGLUC #### [facility] [address] [address] [address] Deidre Tijerina Creatinine [Mass/Vol] 1.43 mg/dL Critically high 0.70-1.30 [facility] Comment on above: Performed By: #### P OCGLUC #### [facility] [address] [address] [address] Deidre Tijerina EGFR-AF KAZAKH 58 mL/min/1.73m2 Critically low >=60 [facility] Comment on above: Performed By: #### P OCGLUC #### [facility] [address] [address] [address] Deidre Tijerina EGFR-NON AF KAZAKH 48 mL/min/1.73m2 Critically low >=60 [facility] Comment on above: Performed By: #### P OCGLUC #### [facility] [address] [address] [address] Deidre Tijerina Globulin (S) [Mass/Vol] 5.0 g/dL Normal [facility] Comment on above: Performed By: #### P OCGLUC #### [facility] [address] [address] [address] Deidre Tijerina Glucose [Mass/Vol] 165 mg/dL Critically high 74-106 [facility] Comment on above: Performed By: #### P OCGLUC #### [facility] [address] [address] [address] Deidre Tijerina Potassium [Moles/Vol] 4.3 mmol/L Normal 3.5-5.1 [facility] Comment on above: Performed By: #### P OCGLUC #### [facility] [address] [address] [address] Deidre Tijerina Protein [Mass/Vol] 7.9 g/dL Normal 6.4-8.2 [facility] Comment on above: Performed By: #### P OCGLUC #### [facility] [address] [address] [address] Deidre Tijerina Sodium [Moles/Vol] 132 mmol/L Critically low 136-145 [facility] Comment on above: Performed By: #### P OCGLUC #### [facility] [address] [address] [address] Deidre Tijerina Urea nitrogen [Mass/Vol] 25.0 mg/dL Critically high 7.0-18.0 [facility] Comment on above: Performed By: #### P OCGLUC #### [facility] [address] [address] [address] Deidre Tijerina Urea nitrogen/Creatinine [Mass ratio] 17.5 mg/mg Normal [facility] Comment on above: Performed By: #### P OCGLUC #### [facility] [address] [address] [address] Deidre Tijerina TROPONIN, HIGH SENSITIVITYon 08-18-2022 HSTROP 8.4 pg/mL Normal 4.0-76.1 [facility] Comment on above: Result Comment: CUT- OFF POINTS HAVE BEEN ESTABLISHED BASED ON THE FOURTH UNIVERSAL DEFINITIONS OF MYOCARDIAL INFARCTION. THE UPPER REFERENCE LIMIT (URL) OF TROPONIN, DEFINED THE 99TH PERCENTILE OF cTnI DISTRIBUTION IN A REFERENCE POPULATION, HAS BEEN CONFIRMED THE DECISION THRESHOLD FOR ND DIAGNOSIS. Performed By: #### P OCGLUC #### [facility] [address] [address] [address] Deidre Tijerina XR CHEST 1 Von [...] left costophrenic angle is excluded from the aslsr-iv-vsle. 3. No overt edema, failure, pneumothorax, or sizable effusion noted within limits of study. 4. Old healed nondisplaced anterior right fifth rib fracture deformity faintly suggested. Electronically authenticated by: ESTUARDO GARCIAH Date: 2022-08-18 09:37 Normal [facility] NM STRESS/REST MULTIon 08-04 NM STRESS/REST MULTI Patient: ARIANNE MCQUEEN Exam Date: 08/04/2022 : 1945 Gender:M Ordering : DR CATINA SALAZAR M.D. Admission #: [id number] Family : Order #: [id number] CLICK HERE TO VIEW EXAM RADIOLOGY REPORT [...] Banks MD on 08/07/2022 at 08:29 Normal [facility] BNPon 07-14-2022 Natriuretic peptide B (Bld) [Mass/Vol] 164.0 pg/mL Normal <=1,800.0 [facility] Comment on above: Performed By: #### B BIG DATA DEVELOPER, BMP #### [facility] [address] [place] [address] Dr. Deidre Tijerina PROF CHEM 8 (BAS METB)on Anion gap [Moles/Vol] 9.2 mmol/L Normal [facility] Comment on above: Performed By: #### B BIG DATA DEVELOPER, BMP #### [facility] [address] [place] [address] Dr. Deidre Tijerina Calcium [Mass/Vol] 8.4 mg/dL Critically low 8.5-10.1 [facility] Comment on above: Performed By: #### B BIG DATA DEVELOPER, BMP #### [facility] [address] [place] [address] Dr. Deidre Tijerina Chloride [Moles/Vol] 106 mmol/L Normal 98-107 [facility] Comment on above: Performed By: #### B BIG DATA DEVELOPER, BMP #### [facility] [address] [address] [address] Deidre Tijerina CO2 [Moles/Vol] 27.0 mmol/L Normal 21.0-32.0 [facility] Comment on above: Performed By: #### B BIG DATA DEVELOPER, BMP #### [facility] [address] [address] [address] Deidre Tijerina Creatinine [Mass/Vol] 1.38 mg/dL Critically high 0.70-1.30 [facility] Comment on above: Performed By: #### B BIG DATA DEVELOPER, BMP #### [facility] [address] [address] [address] Deidre Tijerina EGFR-AF KAZAKH =60 Normal >=60 [facility] Comment on above: Performed By: #### B BIG DATA DEVELOPER, BMP #### [facility] [address] [place] [address] Dr. Deidre Tijerina EGFR-NON AF KAZAKH 50 mL/min/1.73m2 Critically low >=60 [facility] Comment on above: Performed By: #### B BIG DATA DEVELOPER, BMP #### [facility] [address] [place] [address] Dr. Deidre Tijerina Glucose [Mass/Vol] 95 mg/dL Normal 74-106 [facility] Comment on above: Performed By: #### B BIG DATA DEVELOPER, BMP #### [facility] [address] [address] [address] Deidre Tijerina Potassium [Moles/Vol] 5.2 mmol/L Critically high 3.5-5.1 [facility] Comment on above: Performed By: #### B BIG DATA DEVELOPER, BMP #### [facility] [address] [place] [address] Dr. Deidre Tijerina Sodium [Moles/Vol] 137 mmol/L Normal 136-145 [facility] Comment on above: Performed By: #### B BIG DATA DEVELOPER, BMP #### [facility] [address] [address] [address] Deidre Tijerina Urea nitrogen [Mass/Vol] 25.0 mg/dL Critically high 7.0-18.0 [facility] Comment on above: Performed By: #### B BIG DATA DEVELOPER, BMP #### [facility] [address] [place], [place] [address] Dr. Deidre Tijerina Urea nitrogen/Creatinine [Mass ratio] 18.1 mg/mg Normal [facility] Comment on above: Performed By: #### B BIG DATA DEVELOPER, [facility] #### [facility] [address] [place], [place] [address] Dr. Deidre Tijerina ECHOCARDIO M/2D COMPLETEon 0 05-08-2022 ECHOCARDIO M/2D COMPLETE Patient: ARIANNE MCQUEEN Exam Date: 05/08/2022 : 1945 Gender:M Ordering : DR CATINA SALAZAR M.D. Admission #: [id number] Family : DR MAL BARNES D.OFrancine Order #: [id number] CLICK HERE TO VIEW EXAM ECHOCARDIOGRAM REPORT [...] Salazar M.D. on 05/09/2022 at 19:48 Normal [facility] XR LSPINE MIN 4 VIEWSon 04-24 XR [...] NOREEN KELLY Date: 2022-05-08 10:47 Normal [facility] PROF CHEM 8 (BAS METB)on Anion gap [Moles/Vol] 6.8 mmol/L Normal [facility] Comment on above: Performed By: #### P OCGLUC #### [facility] [address] [address] [address] Deidre Tijerina Calcium [Mass/Vol] 8.8 mg/dL Normal 8.5-10.1 [facility] Comment on above: Performed By: #### P OCGLUC #### [facility] [address] [address] [address] Deidre Tijerina Chloride [Moles/Vol] 102 mmol/L Normal 98-107 [facility] Comment on above: Performed By: #### P OCGLUC #### [facility] [address] [address] [address] Deidre Tijerina CO2 [Moles/Vol] 28.1 mmol/L Normal 21.0-32.0 [facility] Comment on above: Performed By: #### P OCGLUC #### [facility] [address] [address] [address] Deidre Tijerina Creatinine [Mass/Vol] 1.84 mg/dL Critically high 0.70-1.30 [facility] Comment on above: Performed By: #### P OCGLUC #### [facility] [address] [address] [address] Deidre Tijerina EGFR-AF KAZAKH 43 mL/min/1.73m2 Critically low >=60 [facility] Comment on above: Performed By: #### P OCGLUC #### [facility] [address] [address] [address] Deidre Tijerina EGFR-NON AF KAZAKH 36 mL/min/1.73m2 Critically low >=60 [facility] Comment on above: Performed By: #### P OCGLUC #### [facility] [address] [address] [address] Deidre Tijerina Glucose [Mass/Vol] 112 mg/dL Critically high 74-106 T [facility] Comment on above: Performed By: #### P OCGLUC #### [facility] [address] [address] [address] Deidre Tijerina Potassium [Moles/Vol] 4.9 mmol/L Normal 3.5-5.1 [facility] Comment on above: Performed By: #### P OCGLUC #### [facility] [address] [address] [address] Deidre Tijerina Sodium [Moles/Vol] 132 mmol/L Critically low 136-145 Th [facility] Comment on above: Performed By: #### P OCGLUC #### [facility] [address] [address] [address] Deidre Tijerina Urea nitrogen [Mass/Vol] 40.0 mg/dL Critically high 7.0-18.0 [facility] Comment on above: Performed By: #### P OCGLUC #### [facility] [address] [address] [address] Deidre Tijerina Urea nitrogen/Creatinine [Mass ratio] 21.7 mg/mg Normal [facility] Comment on above: Performed By: #### P OCGLUC #### [facility] [address] [address] [address] Deidre Tijerina PROF CHEM 8 (BAS METB)on Anion gap [Moles/Vol] 8.9 mmol/L Normal [facility] Comment on above: Performed By: #### B MP #### [facility] [address] [place] [address] Dr. Deidre Tijerina Calcium [Mass/Vol] 8.4 mg/dL Critically low 8.5-10.1 [facility] Comment on above: Performed By: #### B MP #### [facility] [address] [address] [address] Deidre Tijerina Chloride [Moles/Vol] 102 mmol/L Normal 98-107 [facility] Comment on above: Performed By: #### B MP #### [facility] [address] [place] [address] Dr. Deidre Tijerina CO2 [Moles/Vol] 25.9 mmol/L Normal 21.0-32.0 [facility] Comment on above: Performed By: #### B MP #### [facility] [address] [place] [address] Dr. Deidre Tijerina Creatinine [Mass/Vol] 1.20 mg/dL Normal 0.70-1.30 [facility] Comment on above: Performed By: #### B MP #### [facility] [address] [place] [address] Dr. Deidre Tijerina EGFR-AF KAZAKH >60 Normal >=60 [facility] Comment on above: Performed By: #### B MP #### [facility] [address] [place] [address] Dr. Deidre Tijerina EGFR-NON AF KAZAKH 59 mL/min/1.73m2 Critically low >=60 [facility] Comment on above: Performed By: #### B MP #### [facility] [address] [address] [address] Deidre Tijerina Glucose [Mass/Vol] 117 mg/dL Critically high 74-106 T [facility] Comment on above: Performed By: #### B MP #### [facility] [address] [place] [address] Dr. Deidre Tijerina Potassium [Moles/Vol] 4.8 mmol/L Normal 3.5-5.1 [facility] Comment on above: Performed By: #### B MP #### [facility] [address] [address] [address] Deidre Tijerina Sodium [Moles/Vol] 132 mmol/L Critically low 136-145 [facility] Comment on above: Performed By: #### B MP #### [facility] [address] [address] [address] Deidre Tijerina Urea nitrogen [Mass/Vol] 25.0 mg/dL Critically high 7.0-18.0 [facility] Comment on above: Performed By: #### B MP #### [facility] [address] [address] [address] Deidre Tijerina Urea nitrogen/Creatinine [Mass ratio] 20.8 mg/mg Normal [facility] Comment on above: Performed By: #### B MP #### [facility] [address] [address] [address] Deidre Tijerina US CHESTon 08-05-2021 US CHEST Normal [facility] Comment on above: Order Comment: serom a in the chest needs a drain placed BASIC METABOLIC PANELon 05-24 Calcium [Mass/Vol] 8.4 mg/dL Low 8.6-10.3 [facility] Comment on above: Order Comment: this is not a nurse draw. lab draw pleaseNo: Do not add to previous draw Performed By: #### 0 0071 ####[facility] [facility] [place] [address], [facility] Chloride [Moles/Vol] 102 mmol/L Normal 98-107 [facility] Comment on above: Order Comment: this is not a nurse draw. lab draw pleaseNo: Do not add to previous draw Performed By: #### 0 0071 ####[facility] [place] [address], [facility] CO2 [Moles/Vol] 25 mmol/L Normal 21-31 [facility] Comment on above: Order Comment: this is not a nurse draw. lab draw pleaseNo: Do not add to previous draw Performed By: #### 0 0071 ####[facility] [facility] [place] [address], [facility] Creatinine [Mass/Vol] 2.56 mg/dL High 0.70-1.30 [facility] Comment on above: Order Comment: this is not a nurse draw. lab draw pleaseNo: Do not add to previous draw Performed By: #### 0 0071 ####[facility] [facility] [place] [address], [facility] eGFR- 30 ml/min/1.73sq m Abnormal >60 [facility] Comment on above: Order Comment: this is not a nurse draw. lab draw pleaseNo: Do not add to previous draw Result Comment: Calc ulation may not be valid for patients over 70 years Performed By: #### 0 0071 ####[place] [address] [address] eGFR- non- 24 ml/min/1.73sq m Abnormal >60 [facility] Comment on above: Order Comment: this is not a nurse draw. lab draw pleaseNo: Do not add to previous draw Result Comment: Calc ulation may not be valid for patients over 70 years Performed By: #### 0 0071 ####[place] [address] [facility] [place] [address], [facility] Glucose [Mass/Vol] 182 mg/dL High 70-100 [facility] Comment on above: Order Comment: this is not a nurse draw. lab draw pleaseNo: Do not add to previous draw Performed By: #### 0 0071 ####[place] [address], [facility] Potassium [Moles/Vol] 4.5 mmol/L Normal 3.5-5.1 [facility] Comment on above: Order Comment: this is not a nurse draw. lab draw pleaseNo: Do not add to previous draw Performed By: #### 0 0071 ####[facility] [place] [address], [facility] Sodium [Moles/Vol] 133 mmol/L Low 136-145 [facility] Comment on above: Order Comment: this is not a nurse draw. lab draw pleaseNo: Do not add to previous draw Performed By: #### 0 0071 ####[facility] [place] [address], [facility] Urea nitrogen [Mass/Vol] 28 mg/dL High 7-25 [facility] Comment on above: Order Comment: this is not a nurse draw. lab draw pleaseNo: Do not add to previous draw Performed By: #### 0 0071 ####[facility] [address] [facility] [place] [address], [facility] POC GLUCOSE LABon 06-02-2021 Glucose [Mass/Vol] 246 mg/dL High 70-100 [facility] Comment on above: Performed By: #### 8 5499 ####[facility] [facility] [place] [address], [facility] Glucose [Mass/Vol] 109 mg/dL High 70-100 [facility] Comment on above: Performed By: #### 8 5499 ####[facility] [facility].[address] POC SARS COV2 ANTIGEN NEGATI VEon 06-02-2021 POC SARS COV2 ANTIGEN NEG Negative Normal NEGATIVE [facility] Comment on above: Result Comment: Nega [...] forthe qualitative detection of nucleocapsid protein antigen [id number]-HmT-5 in direct nasal swabs from individuals within [...] Certificate ofAccreditation. Performed By: #### 3 1976 ####[place] [id number] [facility].[address] POC SARS COV2 ANTIGEN NEG Negative Normal NEGATIVE [facility] Comment on above: Result Comment: Nega [...] forthe qualitative detection of nucleocapsid protein antigen [id number]-[id number]-6 in direct nasal swabs from individuals within [...] Certificate ofAccreditation. Performed By: #### 3 1976 ####[facility] [facility] [place] [address], [facility] POC GLUCOSE LABon 06-01-2021 Glucose [Mass/Vol] 142 mg/dL High 70-100 [facility] Comment on above: Performed By: #### 8 5499 ####[facility] [facility] [place] [address], [facility] Glucose [Mass/Vol] 132 mg/dL High 70-100 [facility] Comment on above: Performed By: #### 8 5499 ####[facility] [facility] [place] [address], [facility] Glucose [Mass/Vol] 167 mg/dL High 70-100 [facility] Comment on above: Performed By: #### 8 5499 ####[place] [address] [facility] [place] [address], [facility] Glucose [Mass/Vol] 113 mg/dL High 70-100 [facility] Comment on above: Performed By: #### 8 5499 ####[facility] [facility].[address] APTTon 05-31-2021 aPTT Coag (Bld) [Time] 29.3 s Normal 25.0-35.0 [facility] Comment on above: Result Comment: ALL [...] THIS PURPOSE. Performed By: #### 5 7307, 76291 ####[facility] [facility] [place] [address], [facility] CBC W/DIFFon 05-31-2021 ABS IMM GRANS 0.1 10*3/uL Normal 0.0-0.2 [facility] Comment on above: Order Comment: No: D o not add to previous draw Performed By: #### 5 3 ####[facility] [place] [address], [facility] ABS NEUTROPHILS 4.9 10*3/uL Normal 1.6-7.6 [facility] Comment on above: Order Comment: No: D o not add to previous draw Performed By: #### 5 3 ####[facility] [facility] [place] [address], [facility] Basophils (Bld) [#/Vol] 0.1 10*3/uL Normal 0.0-0.2 [facility] Comment on above: Order Comment: No: D o not add to previous draw Performed By: #### 5 3 ####[facility] [facility] [place] [address], [facility] Basophils/100 WBC (Bld) 0.6 % Normal 0.0-1.0 [facility] Comment on above: Order Comment: No: D o not add to previous draw Performed By: #### 5 3 ####[facility] [place] [address], [facility] Eosinophils (Bld) [#/Vol] 0.4 10*3/uL Normal 0.0-0.5 [facility] Comment on above: Order Comment: No: D o not add to previous draw Performed By: #### 5 3 ####[facility] [facility] [place] [address], [facility] Eosinophils/100 WBC (Bld) 5.3 % Normal 0.0-6.0 [facility] Comment on above: Order Comment: No: D o not add to previous draw Performed By: #### 5 3 ####[facility] [place] [address], [facility] Erythrocyte distribution width (RBC) [Ratio] 15.7 % High 11.5-15.0 [facility] Comment on above: Order Comment: No: D o not add to previous draw Performed By: #### 5 0103 ####[facility] [facility].[address] Hematocrit (Bld) [Volume fraction] 27.6 % Low 39.0-50.0 [facility] Comment on above: Order Comment: No: D o not add to previous draw Performed By: #### 5 0103 ####[facility] [facility] [place] [address], [facility] Hemoglobin (Bld) [Mass/Vol] 8.5 g/dL Low 13.0-17.0 [facility] Comment on above: Order Comment: No: D o not add to previous draw Performed By: #### 5 0103 ####[facility] IMMATURE GRANS 1.1 % High 0.0-1.[address] [facility] Comment on above: Order Comment: No: D o not add to previous draw Performed By: #### 5 0103 ####[facility] [facility].[address] Lymphocytes (Bld) [#/Vol] 1.7 10*3/uL Normal 1.2-4.0 [facility] Comment on above: Order Comment: No: D o not add to previous draw Performed By: #### 5 0103 ####[facility] [facility].[address] Lymphocytes/100 WBC (Bld) 21.4 % Normal 20.0-45.0 [facility] Comment on above: Order Comment: No: D o not add to previous draw Performed By: #### 5 0103 ####[facility] [place] [address], [facility] MCH (RBC) [Entitic mass] 29.2 pg Normal 27.0-33.0 [facility] Comment on above: Order Comment: No: D o not add to previous draw Performed By: #### 5 0103 ####[facility] MCHC (RBC) [Mass/Vol] 30.8 g/dL Low 32.0-35.0 [facility] Comment on above: Order Comment: No: D o not add to previous draw Performed By: #### 5 0103 ####[facility] [facility].[address] MCV (RBC) [Entitic vol] 94.8 fL Normal 82.0-98.0 [facility] Comment on above: Order Comment: No: D o not add to previous draw Performed By: #### 5 0103 ####[facility] Monocytes (Bld) [#/Vol] 0.8 10*3/uL Normal 0.1-1.0 [facility] Comment on above: Order Comment: No: D o not add to previous draw Performed By: #### 5 0103 ####[facility] MONOS 9.7 % Normal 5.0-12.0 [facility] Comment on above: Order Comment: No: D o not add to previous draw Performed By: #### 5 0103 ####[facility] [facility].[address] Neutrophils/100 WBC (Bld) 61.9 % Normal 40.0-72.0 [facility] Comment on above: Order Comment: No: D o not add to previous draw Performed By: #### 5 0103 ####[facility] Nucleated RBC/100 WBC (Bld) [Ratio] 0 % Normal 0-0 [facility] Comment on above: Order Comment: No: D o not add to previous draw Performed By: #### 5 3 ####[facility] [place] [address], [facility] PLAT CNT 351 10*3/uL Normal 150-400 The [facility] Comment on above: Order Comment: No: D o not add to previous draw Performed By: #### 5 0103 ####[facility] [facility] [place] [address], [facility] RBC (Bld) [#/Vol] 2.91 10*6/uL Low 4.20-5.70 [facility] Comment on above: Order Comment: No: D o not add to previous draw Performed By: #### 5 0103 ####[facility] [facility] [place] [address], [facility] WBC (Bld) [#/Vol] 7.96 10*3/uL Normal 4.00-10.60 [facility] Comment on above: Order Comment: No: D o not add to previous draw Performed By: #### 5 0103 ####[facility] [facility].[address] COMP METABOLIC PANELon 05-31 Albumin [Mass/Vol] 2.9 g/dL Low 3.5-5.7 [facility] Comment on above: Order Comment: No: D o not add to previous drawNurse draw Performed By: #### 1 0, 62977 ####[facility] [facility].[address] ALKALINE PHOSPH 70 IU/L Normal 34-104 The [facility] Comment on above: Order Comment: No: D o not add to previous drawNurse draw Performed By: #### 1 0070, 46308 ####[facility] ALT [Catalytic activity/Vol] 9 U/L Normal 7-52 [facility] Comment on above: Order Comment: No: D o not add to previous drawNurse draw Performed By: #### 1 0, 11095 ####[facility] [place] [address], [place] AST [Catalytic activity/Vol] 11 U/L Low 13-39 [facility] Comment on above: Order Comment: No: D o not add to previous drawNurse draw Performed By: #### 1 0, 91575 ####[facility] [place] [address], [place] Bilirubin [Mass/Vol] 0.6 mg/dL Normal 0.3-1.0 [facility] Comment on above: Order Comment: No: D o not add to previous drawNurse draw Performed By: #### 1 69, 54341 ####[facility] [place] [address], [place] Calcium [Mass/Vol] 8.4 mg/dL Low 8.6-10.3 [facility] Comment on above: Order Comment: No: D o not add to previous drawNurse draw Performed By: #### 1 69, 47408 ####[facility] [place] [address], [place] Chloride [Moles/Vol] 102 mmol/L Normal 98-107 [facility] Comment on above: Order Comment: No: D o not add to previous drawNurse draw Performed By: #### 1 69, 14674 ####[facility] [place] [address], [place] CO2 [Moles/Vol] 27 mmol/L Normal 21-31 The [facility] Comment on above: Order Comment: No: D o not add to previous drawNurse draw Performed By: #### 1 0, 15124 ####[facility] [place] [address], [place] Creatinine [Mass/Vol] 2.90 mg/dL High 0.70-1.30 [facility] Comment on above: Order Comment: No: D o not add to previous drawNurse draw Performed By: #### 1 0070, 53719 ####[facility] [place] [address], [facility] eGFR- 26 ml/min/1.73sq m Abnormal >60 The [facility] Comment on above: Order Comment: No: D o not add to previous drawNurse draw Result Comment: Calc ulation may not be valid for patients over 70 years Performed By: #### 1 0070, 11536 ####[facility] [place] [address], [facility] eGFR- non- 21 ml/min/1.73sq m Abnormal >60 The [facility] Comment on above: Order Comment: No: D o not add to previous drawNurse draw Result Comment: Calc ulation may not be valid for patients over 70 years Performed By: #### 1 0, 84546 ####[facility] [place] [address], [place] Glucose [Mass/Vol] 97 mg/dL Normal 70-100 [facility] Comment on above: Order Comment: No: D o not add to previous drawNurse draw Performed By: #### 1 0, 14810 ####[facility] [place] [address], [place] Potassium [Moles/Vol] 4.4 mmol/L Normal 3.5-5.1 [facility] Comment on above: Order Comment: No: D o not add to previous drawNurse draw Performed By: #### 1 0070, 58971 ####[facility] [place] [address], [place] Protein [Mass/Vol] 6.5 g/dL Normal 6.0-8.3 [facility] Comment on above: Order Comment: No: D o not add to previous drawNurse draw Performed By: #### 1 0070, 46968 ####[facility] [place] [address], [place] Sodium [Moles/Vol] 134 mmol/L Low 136-145 [facility] Comment on above: Order Comment: No: D o not add to previous drawNurse draw Performed By: #### 1 0, 89649 ####[facility] [place] [address], [place] Urea nitrogen [Mass/Vol] 31 mg/dL High 7-25 [facility] Comment on above: Order Comment: No: D o not add to previous drawNurse draw Performed By: #### 1 69, 84108 ####[facility] [place] [address], [place] MAGNESIUM BLOODon 05-31-2021 Magnesium [Mass/Vol] 1.8 mg/dL Low 1.9-2.7 [facility] Comment on above: Performed By: #### 1 69, 90364 ####[facility] [place] [address], [place] POC GLUCOSE LABon 05-31-2021 Glucose [Mass/Vol] 120 mg/dL High 70-100 [facility] Comment on above: Performed By: #### 8 5499 ####[facility] [place] [address], [place] Glucose [Mass/Vol] 124 mg/dL High 70-100 [facility] Comment on above: Performed By: #### 8 1939 ####[facility] [place] [address], [place] Glucose [Mass/Vol] 136 mg/dL High 70-100 [facility] Comment on above: Performed By: #### 8 5499 ####[facility] [place] [address], [place] Glucose [Mass/Vol] 115 mg/dL High 70-100 [facility] Comment on above: Performed By: #### 8 5499 ####[facility] [place] [address], [facility] PORTABLE CHEST 1 VIEWon PORTABLE CHEST 1 VIEW Normal [facility] Comment on above: Order Comment: evalu ate for CHF PROTHROMBIN TIMEon INR Coag (PPP) [Relative time] 1.13 {INR} Normal 0.91-1.16 [facility] Comment on above: Result Comment: ACCC P RECOMMENDED INR FOR WARFARIN THERAPY CONDITION INRPROPHYLAXIS OF VENOUS THROMBOSIS 2-3(HIGH-RISK SURGERY)TREATMENT OF VENOUS THROMBOSIS 2-3TREATMENT OF PULMONARY EMBOLISM 2-3PREVENTION OF SYSTEMIC EMBOLISM: 2-3 ACUTE MYOCARDIAL INFARCTION TISSUE HEART VALVES VALVULAR HEART DISEASE ATRIAL FIBRILLATION RECURRENT SYSTEMIC EMBOLISMMECHANICAL HEART VALVE 2.5-3.5 FROM: ORAL ANTICOAGULANTS. MECHANISM OF ACTION, CLINICALEFFECTIVENESS, AND OPTIMAL THERAPEUTIC RANGE. [id number]. Performed By: #### 5 7307, 57895 ####[facility] [facility] [place] [address], [facility] PT Coag (PPP) [Time] 14.5 s Normal 12.3-14.8 [facility] Comment on above: Result Comment: ALL RESULTS MUST BE INTERPRETED WITH RESPECT TO BLOOD DRAWING ARTIFACTOR DILUTION ERROR OF ANTICOAGULANT AT THE TIME OF SAMPLING. Performed By: #### 5 7312, 37094 ####[facility] [place] [address], [facility] ALBUMIN BLOODon 05-30-2021 Albumin [Mass/Vol] 3.0 g/dL Low 3.5-5.7 [facility] Comment on above: Performed By: #### 1 69, , ####[facility] [place] [address], [facility] BASIC METABOLIC PANELon Calcium [Mass/Vol] 8.6 mg/dL Normal 8.6-10.3 [facility] Comment on above: Order Comment: No: D o not add to previous draw Performed By: #### 1 69, , ####[facility] [place] [address], [facility] Chloride [Moles/Vol] 102 mmol/L Normal 98-107 [facility] Comment on above: Order Comment: No: D o not add to previous draw Performed By: #### 1 69, , ####[facility] [place] [address], [facility] CO2 [Moles/Vol] 25 mmol/L Normal 21-31 The [facility] Comment on above: Order Comment: No: D o not add to previous draw Performed By: #### 1 69, , ####[facility] [place] [address], [facility] Creatinine [Mass/Vol] 2.49 mg/dL High 0.70-1.30 [facility] Comment on above: Order Comment: No: D o not add to previous draw Performed By: #### 1 69, , ####[facility] [place] [address], [facility] eGFR- 31 ml/min/1.73sq m Abnormal >60 The [facility] Comment on above: Order Comment: No: D o not add to previous draw Result Comment: Calc ulation may not be valid for patients over 70 years Performed By: #### 1 69, , 90554 ####[facility] [place] [address], [facility] eGFR- non- 25 ml/min/1.73sq m Abnormal >60 The [facility] Comment on above: Order Comment: No: D o not add to previous draw Result Comment: Calc ulation may not be valid for patients over 70 years Performed By: #### 1 0, , ####[facility] [place] [address], [facility] Glucose [Mass/Vol] 100 mg/dL Normal 70-100 [facility] Comment on above: Order Comment: No: D o not add to previous draw Performed By: #### 1 69, , ####[facility] [place] [address], [place] Potassium [Moles/Vol] 4.5 mmol/L Normal 3.5-5.1 [facility] Comment on above: Order Comment: No: D o not add to previous draw Performed By: #### 1 69, , ####[facility] [id number], [place] Sodium [Moles/Vol] 134 mmol/L Low 136-145 [facility] Comment on above: Order Comment: No: D o not add to previous draw Performed By: #### 1 69, , 36721 ####[facility] [id number], [place] Urea nitrogen [Mass/Vol] 32 mg/dL High 7-25 [facility] Comment on above: Order Comment: No: D o not add to previous draw Performed By: #### 1 69, , ####[facility] CBC COMPLETE BLOOD COUNTon Erythrocyte distribution width (RBC) [Ratio] 15.7 % High 11.5-15.0 [facility] Comment on above: Order Comment: No: D o not add to previous draw Performed By: #### 5 0608 ####[address] Hematocrit (Bld) [Volume fraction] 26.5 % Low 39.0-50.0 [facility] Comment on above: Order Comment: No: D o not add to previous draw Performed By: #### 5 0608 ####[address] Hemoglobin (Bld) [Mass/Vol] 8.4 g/dL Low 13.0-17.0 [facility] Comment on above: Order Comment: No: D o not add to previous draw Performed By: #### 5 0608 ####[address] MCH (RBC) [Entitic mass] 28.9 pg Normal 27.0-33.0 [facility] Comment on above: Order Comment: No: D o not add to previous draw Performed By: #### 5 0608 ####[address] MCHC (RBC) [Mass/Vol] 31.7 g/dL Low 32.0-35.0 [facility] Comment on above: Order Comment: No: D o not add to previous draw Performed By: #### 5 0608 ####[address] MCV (RBC) [Entitic vol] 91.1 fL Normal 82.0-98.0 [facility] Comment on above: Order Comment: No: D o not add to previous draw Performed By: #### 5 0608 ####[facility] [facility] [place] [address], [facility] Nucleated RBC/100 WBC (Bld) [Ratio] 0 % Normal 0-0 [facility] Comment on above: Order Comment: No: D o not add to previous draw Performed By: #### 5 0608 ####[facility] [facility] [place] [address], [facility] PLAT CNT 338 10*3/uL Normal 150-400 The [facility] Comment on above: Order Comment: No: D o not add to previous draw Performed By: #### 5 0608 ####[facility] [facility] [place] [address], [facility] RBC (Bld) [#/Vol] 2.91 10*6/uL Low 4.20-5.70 [facility] Comment on above: Order Comment: No: D o not add to previous draw Performed By: #### 5 0608 ####[facility] [facility] [place] [address], [facility] WBC (Bld) [#/Vol] 7.23 10*3/uL Normal 4.00-10.60 [facility] Comment on above: Order Comment: No: D o not add to previous draw Performed By: #### 5 0608 ####[facility] [facility] [place] [address], [facility] CREATININE URINE RANDOMon Creatinine (U) [Mass/Vol] 39.0 mg/dL Normal [facility] Comment on above: Order Comment: No: D o not add to previous draw Result Comment: Ther e are no established reference values for random urine specimens Performed By: #### 2 5706, 48087 ####[facility] [facility] [place] [address], [facility] MAGNESIUM BLOODon 05-30-2021 Magnesium [Mass/Vol] 1.9 mg/dL Normal 1.9-2.7 [facility] Comment on above: Order Comment: No: D o not add to previous draw Performed By: #### 1 0070, 04688, 74832 ####[facility] [place] [address], [facility] POC GLUCOSE LABon 05-30-2021 Glucose [Mass/Vol] 155 mg/dL High 70-100 [facility] Comment on above: Performed By: #### 8 5499 ####[facility] [place] [address], [place] Glucose [Mass/Vol] 129 mg/dL High 70-100 [facility] Comment on above: Performed By: #### 8 5499 ####[facility] [facility] [place] [address], [place] Glucose [Mass/Vol] 147 mg/dL High 70-100 [facility] Comment on above: Performed By: #### 8 5499 ####[facility] [facility] [place] [address], [facility] PORTABLE CHEST 1 VIEWon 10-0 PORTABLE CHEST 1 VIEW Normal [facility] Comment on above: Order Comment: Evalu ate for Atelectasis T PROT UR Isi 05-30-2021 U TOTAL PROTEIN 88.8 mg/dL Normal The [facility] Comment on above: Order Comment: No: D o not add to previous draw Result Comment: Ther e are no established reference values for random urine specimens Performed By: #### 2 5706, 94571 ####[facility] [facility] [place] [address], [facility] URINE TRINH STAIN/EOSon EOSINOPHIL SMEAR NONE SEEN Normal NSN [facility] Comment on above: Order Comment: No: D o not add to previous draw [place] Normal [facility] Comment on above: Order Comment: No: D o not add to previous draw Result Comment: Test Performed by [employer] [address] [place] [id number] - Released 05/30/2021 20:40 US RENALon 05-30-2021 US RENAL Normal [facility] Comment on above: Order Comment: Other , FREDA BASIC METABOLIC PANELon 10-0 Calcium [Mass/Vol] 8.4 mg/dL Low 8.6-10.3 [facility] Comment on above: Order Comment: No: D o not add to previous draw Performed By: #### 4 1000, 79232, 14242 ####[facility] [place] [address], [facility] Chloride [Moles/Vol] 102 mmol/L Normal 98-107 [facility] Comment on above: Order Comment: No: D o not add to previous draw Performed By: #### 4 1000, 44746, 92367 ####[facility] [place] [address], [address] [facility]. [facility] CO2 [Moles/Vol] 25 mmol/L Normal 21-31 The [facility] Comment on above: Order Comment: No: D o not add to previous draw Performed By: #### 4 1000, 30590, 51071 ####[facility] [place] [address], [facility] Creatinine [Mass/Vol] 2.12 mg/dL High 0.70-1.30 The [facility] Comment on above: Order Comment: No: D o not add to previous draw Performed By: #### 4 1000, 65598, 37868 ####[facility] [place] [address], [facility] eGFR- 37 ml/min/1.73sq m Abnormal >60 The [facility] Comment on above: Order Comment: No: D o not add to previous draw Result Comment: Calc ulation may not be valid for patients over 70 years Performed By: #### 4 1000, 97698, 45885 ####[facility] eGFR- non- 30 ml/min/1.73sq m Abnormal >60 The [facility] Comment on above: Order Comment: No: D o not add to previous draw Result Comment: Calc ulation may not be valid for patients over 70 years Performed By: #### 4 1000, 49779, 92315 ####[facility] [place] [address], [facility] Glucose [Mass/Vol] 103 mg/dL High 70-100 The [facility] Comment on above: Order Comment: No: D o not add to previous draw Performed By: #### 4 1000, 78558, 88540 ####[facility] [place] [address], [facility] Potassium [Moles/Vol] 4.6 mmol/L Normal 3.5-5.1 [facility] Comment on above: Order Comment: No: D o not add to previous draw Performed By: #### 4 999, 74944, 80148 ####[facility] [facility] [place] [address], [facility] Sodium [Moles/Vol] 133 mmol/L Low 136-145 [facility] Comment on above: Order Comment: No: D o not add to previous draw Performed By: #### 4 999, 18975, 24499 ####[facility] [facility] [place] [address], [facility] Urea nitrogen [Mass/Vol] 33 mg/dL High 7-25 [facility] Comment on above: Order Comment: No: D o not add to previous draw Performed By: #### 4 1000, 82432, 76724 ####[facility] [place] [address], [facility] CBC COMPLETE BLOOD COUNTon Erythrocyte distribution width (RBC) [Ratio] 15.7 % High 11.5-15.0 [facility] Comment on above: Order Comment: No: D o not add to previous draw Performed By: #### 5 0608 ####[facility] Hematocrit (Bld) [Volume fraction] 26.4 % Low 39.0-50.0 [facility] Comment on above: Order Comment: No: D o not add to previous draw Performed By: #### 5 0608 ####[facility] [place] [address] Hemoglobin (Bld) [Mass/Vol] 8.4 g/dL Low 13.0-17.0 [facility] Comment on above: Order Comment: No: D o not add to previous draw Performed By: #### 5 0608 ####[address] MCH (RBC) [Entitic mass] 29.0 pg Normal 27.0-33.0 [facility] Comment on above: Order Comment: No: D o not add to previous draw Performed By: #### 5 0608 ####[address] MCHC (RBC) [Mass/Vol] 31.8 g/dL Low 32.0-35.0 [facility] Comment on above: Order Comment: No: D o not add to previous draw Performed By: #### 5 0608 ####[facility] [place] [address] MCV (RBC) [Entitic vol] 91.0 fL Normal 82.0-98.0 [facility] Comment on above: Order Comment: No: D o not add to previous draw Performed By: #### 5 0608 ####[address] Nucleated RBC/100 WBC (Bld) [Ratio] 0 % Normal 0-0 The [facility] Comment on above: Order Comment: No: D o not add to previous draw Performed By: #### 5 0608 ####[facility] [place] [address], [facility] PLAT CNT 346 10*3/uL Normal 150-400 The [facility] Comment on above: Order Comment: No: D o not add to previous draw Performed By: #### 5 0608 ####[facility] [place] [address], [facility] RBC (Bld) [#/Vol] 2.90 10*6/uL Low 4.20-5.70 [facility] Comment on above: Order Comment: No: D o not add to previous draw Performed By: #### 5 0608 ####[facility] [facility] [place] [address], [facility] WBC (Bld) [#/Vol] 7.17 10*3/uL Normal 4.00-10.60 [facility] Comment on above: Order Comment: No: D o not add to previous draw Performed By: #### 5 0608 ####[facility] [facility].[address] MAGNESIUM BLOODon 05-29-2021 Magnesium [Mass/Vol] 1.9 mg/dL Normal 1.9-2.7 [facility] Comment on above: Order Comment: No: D o not add to previous draw Performed By: #### 4 999, 46791, 57870 ####[facility] [place] [address], [facility] PHOSPHORUS BLOODon Phosphate [Mass/Vol] 4.4 mg/dL Normal 2.5-5.0 [facility] Comment on above: Order Comment: No: D o not add to previous draw Performed By: #### 4 999, 22726, 94039 ####[facility] [place] [address], [place] POC GLUCOSE LABon 05-29-2021 Glucose [Mass/Vol] 183 mg/dL High 70-100 [facility] Comment on above: Performed By: #### 8 5499 ####[facility] [place] [address], [place] Glucose [Mass/Vol] 124 mg/dL High 70-100 [facility] Comment on above: Performed By: #### 8 5499 ####[facility] [place] [address], [place] Glucose [Mass/Vol] 187 mg/dL High 70-100 [facility] Comment on above: Performed By: #### 8 5499 ####[facility] [place] [address], [place] Glucose [Mass/Vol] 189 mg/dL High 70-100 [facility] Comment on above: Performed By: #### 8 5499 ####[facility] [facility] [place] [address], [facility] PORTABLE CHEST 1 VIEWon PORTABLE CHEST 1 VIEW Normal The [facility] Comment on above: Order Comment: evalu ate for Atelectasis BASIC METABOLIC PANELon Calcium [Mass/Vol] 8.3 mg/dL Low 8.6-10.3 [facility] Comment on above: Order Comment: No: D o not add to previous draw Performed By: #### 2 5508, 25561, 29023, 22891 ####[facility] [facility] [place] [address], [place] Chloride [Moles/Vol] 99 mmol/L Normal 98-107 [facility] Comment on above: Order Comment: No: D o not add to previous draw Performed By: #### 2 5508, 10358, 31015, 89515 ####[facility] [place] [address], [facility] CO2 [Moles/Vol] 26 mmol/L Normal 21-31 [facility] Comment on above: Order Comment: No: D o not add to previous draw Performed By: #### 2 5508, 77350, 41598, 27792 ####[facility] [facility] [place] [address], [facility] Creatinine [Mass/Vol] 2.18 mg/dL High 0.70-1.30 [facility] Comment on above: Order Comment: No: D o not add to previous draw Performed By: #### 2 5508, 00077, 22259, 34987 ####[facility] [facility] [place] [address], [facility] eGFR- 36 ml/min/1.73sq m Abnormal >60 The [facility] Comment on above: Order Comment: No: D o not add to previous draw Result Comment: Calc ulation may not be valid for patients over 70 years Performed By: #### 2 5508, 49317, 65430, 68051 ####[facility] [facility] [place] [address], [facility] eGFR- non- 29 ml/min/1.73sq m Abnormal >60 The [facility] Comment on above: Order Comment: No: D o not add to previous draw Result Comment: Calc ulation may not be valid for patients over 70 years Performed By: #### 2 5508, 37996, 02411, 98164 ####[facility] [place] [address], [facility] Glucose [Mass/Vol] 100 mg/dL Normal 70-100 [facility] Comment on above: Order Comment: No: D o not add to previous draw Performed By: #### 2 5508, 63707, 35885, 82783 ####[facility], [address] Potassium [Moles/Vol] 5.3 mmol/L High 3.5-5.1 [facility] Comment on above: Order Comment: No: D o not add to previous draw Performed By: #### 2 5508, 96058, 34286, 36408 ####[facility] [facility] [place] [address], [facility] Sodium [Moles/Vol] 131 mmol/L Low 136-145 [facility] Comment on above: Order Comment: No: D o not add to previous draw Performed By: #### 2 5508, 45056, 28828, 96015 ####[facility] [facility].[address] Urea nitrogen [Mass/Vol] 33 mg/dL High 7-25 [facility] Comment on above: Order Comment: No: D o not add to previous draw Performed By: #### 2 5508, 96830, 82754, 38701 ####[facility] [facility].[address] CBC W/DIFFon 05-28-2021 ABS IMM GRANS 0.2 10*3/uL Normal 0.0-0.2 The [facility] Comment on above: Performed By: #### 5 0103 ####[facility] [facility].[address] ABS NEUTROPHILS 5.6 10*3/uL Normal 1.6-7.6 [facility] Comment on above: Performed By: #### 5 0103 ####[facility] [facility] [place] [address], [facility] Basophils (Bld) [#/Vol] 0.0 10*3/uL Normal 0.0-0.2 [facility] Comment on above: Performed By: #### 5 0103 ####[facility] [facility].[address] Basophils/100 WBC (Bld) 0.5 % Normal 0.0-1.0 [facility] Comment on above: Performed By: #### 5 0103 ####[facility] [facility].[address] Eosinophils (Bld) [#/Vol] 0.4 10*3/uL Normal 0.0-0.5 [facility] Comment on above: Performed By: #### 5 0103 ####[facility] [facility] [place] [address], [facility] Eosinophils/100 WBC (Bld) 4.5 % Normal 0.0-6.0 [facility] Comment on above: Performed By: #### 5 0103 ####[place] [address] [address] Erythrocyte distribution width (RBC) [Ratio] 15.6 % High 11.5-15.0 [facility] Comment on above: Performed By: #### 5 0103 ####[facility] Hematocrit (Bld) [Volume fraction] 27.7 % Low 39.0-50.0 [facility] Comment on above: Performed By: #### 5 0103 ####[facility] Hemoglobin (Bld) [Mass/Vol] 8.6 g/dL Low 13.0-17.0 [facility] Comment on above: Performed By: #### 5 0103 ####[facility] IMMATURE GRANS 1.8 % High 0.0-1.0 The [facility] Comment on above: Performed By: #### 5 3 ####[address] Lymphocytes (Bld) [#/Vol] 1.8 10*3/uL Normal 1.2-4.0 [facility] Comment on above: Performed By: #### 5 0103 ####[facility] Lymphocytes/100 WBC (Bld) 20.4 % Normal 20.0-45.0 [facility] Comment on above: Performed By: #### 5 0103 ####[facility] MCH (RBC) [Entitic mass] 28.6 pg Normal 27.0-33.0 [facility] Comment on above: Performed By: #### 5 3 ####[facility] [place] [address] MCHC (RBC) [Mass/Vol] 31.0 g/dL Low 32.0-35.0 [facility] Comment on above: Performed By: #### 5 3 ####[facility] MCV (RBC) [Entitic vol] 92.0 fL Normal 82.0-98.0 [facility] Comment on above: Performed By: #### 5 3 ####[facility] Monocytes (Bld) [#/Vol] 0.9 10*3/uL Normal 0.1-1.0 [facility] Comment on above: Performed By: #### 5 3 ####[facility] [place] [address] MONOS 9.9 % Normal 5.0-12.0 [facility] Comment on above: Performed By: #### 5 3 ####[facility] [place] [address] Neutrophils/100 WBC (Bld) 62.9 % Normal 40.0-72.0 [facility] Comment on above: Performed By: #### 5 0103 ####[facility] [facility].[address] Nucleated RBC/100 WBC (Bld) [Ratio] 0 % Normal 0-0 [facility] Comment on above: Performed By: #### 5 0103 ####[facility] [place] [address], [facility] PLAT CNT 387 10*3/uL Normal 150-400 The [facility] Comment on above: Performed By: #### 5 0103 ####[facility] RBC (Bld) [#/Vol] 3.01 10*6/uL Low 4.20-5.70 [facility] Comment on above: Performed By: #### 5 0103 ####[facility] [place] [address], [facility] WBC (Bld) [#/Vol] 8.82 10*3/uL Normal 4.00-10.60 [facility] Comment on above: Performed By: #### 5 0103 ####[facility] [facility].[address] CPKon 05-28-2021 CK [Catalytic activity/Vol] 19 U/L Low 30-223 [facility] Comment on above: Performed By: #### 2 5508, 89752, 86571, 05542 ####[facility] [facility].[address] MAGNESIUM BLOODon 05-28-2021 Magnesium [Mass/Vol] 1.9 mg/dL Normal 1.9-2.7 [facility] Comment on above: Order Comment: No: D o not add to previous draw Performed By: #### 2 5508, 51257, 08660, 62406 ####[facility] [place] [address], [facility] Operative Reporton 1 Operative Report Normal [facility] PHOSPHORUS BLOODon 1 Phosphate [Mass/Vol] 4.5 mg/dL Normal 2.5-5.0 [facility] Comment on above: Performed By: #### 2 5508, 35607, 81043, 26127 ####[facility] [place] [address], [facility] POC GLUCOSE LABon 05-28-2021 Glucose [Mass/Vol] 120 mg/dL High 70-100 [facility] Comment on above: Performed By: #### 8 5499 ####[facility] [place] [address], [place] Glucose [Mass/Vol] 130 mg/dL High 70-100 [facility] Comment on above: Performed By: #### 8 6289 ####[facility] [place] [address], [place] Glucose [Mass/Vol] 117 mg/dL High 70-100 [facility] Comment on above: Performed By: #### 8 1049 ####[facility] [place] [address], [place] Glucose [Mass/Vol] 175 mg/dL High 70-100 [facility] Comment on above: Performed By: #### 8 0609 ####[facility] [place] [address], [place] Glucose [Mass/Vol] 107 mg/dL High 70-100 [facility] Comment on above: Performed By: #### 8 1856 ####[facility] [place] [address], [place] BASIC METABOLIC PANELon 10-0 4-2021 Calcium [Mass/Vol] 8.4 mg/dL Low 8.6-10.3 [facility] Comment on above: Order Comment: No: D o not add to previous draw Performed By: #### 0 0071, 59184, 19078 ####[facility] [place] [address], [facility] Chloride [Moles/Vol] 99 mmol/L Normal 98-107 [facility] Comment on above: Order Comment: No: D o not add to previous draw Performed By: #### 0 0071, 01834, 95866 ####[facility] [place] [address], [facility] CO2 [Moles/Vol] 29 mmol/L Normal 21-31 [facility] Comment on above: Order Comment: No: D o not add to previous draw Performed By: #### 0 0071, , 95995 ####[facility] [place] [address], [facility] Creatinine [Mass/Vol] 1.78 mg/dL High 0.70-1.30 [facility] Comment on above: Order Comment: No: D o not add to previous draw Performed By: #### 0 0071, 27598, 83739 ####[facility] eGFR- 45 ml/min/1.73sq m Abnormal >60 [facility] Comment on above: Order Comment: No: D o not add to previous draw Result Comment: Calc ulation may not be valid for patients over 70 years Performed By: #### 0 0071, 11686, 22012 ####[facility] [place] [address], [facility] eGFR- non- 37 ml/min/1.73sq m Abnormal >60 [facility] Comment on above: Order Comment: No: D o not add to previous draw Result Comment: Calc ulation may not be valid for patients over 70 years Performed By: #### 0 0071, 40933, 54020 ####[facility] [place] [address], [place] Glucose [Mass/Vol] 96 mg/dL Normal 70-100 [facility] Comment on above: Order Comment: No: D o not add to previous draw Performed By: #### 0 0071, , 42074 ####[facility] [place] [address], [place] Potassium [Moles/Vol] 4.7 mmol/L Normal 3.5-5.1 [facility] Comment on above: Order Comment: No: D o not add to previous draw Performed By: #### 0 0071, , 31537 ####[facility] [place] [address], [place] Sodium [Moles/Vol] 133 mmol/L Low 136-145 [facility] Comment on above: Order Comment: No: D o not add to previous draw Performed By: #### 0 0071, , 00286 ####[facility] [place] [address], [place] Urea nitrogen [Mass/Vol] 33 mg/dL High 7-25 [facility] Comment on above: Order Comment: No: D o not add to previous draw Performed By: #### 0 0071, , 25037 ####[facility] [place] [address], [place] C REACTIVE PROTEINon -04-2 021 CRP [Mass/Vol] 47.2 mg/L High 0.0-7.0 [facility] Comment on above: Order Comment: Yes: Add to Previous draw if able Performed By: #### 6 1405 ####[facility] [place] [address], [place] CBC COMPLETE BLOOD COUNTon 1 Erythrocyte distribution width (RBC) [Ratio] 15.5 % High 11.5-15.0 [facility] Comment on above: Order Comment: No: D o not add to previous drawNurse draw Performed By: #### 5 4716, 67474 ####[facility] Hematocrit (Bld) [Volume fraction] 24.7 % Low 39.0-50.0 [facility] Comment on above: Order Comment: No: D o not add to previous drawNurse draw Performed By: #### 5 9686, 28199 ####[facility] Hemoglobin (Bld) [Mass/Vol] 7.7 g/dL Low 13.0-17.0 [facility] Comment on above: Order Comment: No: D o not add to previous drawNurse draw Performed By: #### 5 4386, 45803 ####[facility] MCH (RBC) [Entitic mass] 28.5 pg Normal 27.0-33.0 [facility] Comment on above: Order Comment: No: D o not add to previous drawNurse draw Performed By: #### 5 2586, 67587 ####[facility] MCHC (RBC) [Mass/Vol] 31.2 g/dL Low 32.0-35.0 [facility] Comment on above: Order Comment: No: D o not add to previous drawNurse draw Performed By: #### 5 6296, 94878 ####[facility] [place] [address] MCV (RBC) [Entitic vol] 91.5 fL Normal 82.0-98.0 [facility] Comment on above: Order Comment: No: D o not add to previous drawNurse draw Performed By: #### 5 6506, 47496 ####[facility] [facility].[address] Nucleated RBC/100 WBC (Bld) [Ratio] 0 % Normal 0-0 [facility] Comment on above: Order Comment: No: D o not add to previous drawNurse draw Performed By: #### 5 6506, 59562 ####[facility] [facility] [place] [address], [facility] PLAT CNT 332 10*3/uL Normal 150-400 [facility] Comment on above: Order Comment: No: D o not add to previous drawNurse draw Performed By: #### 5 6506, 78482 ####[facility] [facility].[address] RBC (Bld) [#/Vol] 2.70 10*6/uL Low 4.20-5.70 [facility] Comment on above: Order Comment: No: D o not add to previous drawNurse draw Performed By: #### 5 6506, 67315 ####[facility] [facility].[address] WBC (Bld) [#/Vol] 7.87 10*3/uL Normal 4.00-10.60 [facility] Comment on above: Order Comment: No: D o not add to previous drawNurse draw Performed By: #### 5 6506, 02191 ####[facility] [facility] [place] [address], [facility] MAGNESIUM BLOODon 05-27-2021 Magnesium [Mass/Vol] 2.1 mg/dL Normal 1.9-2.7 [facility] Comment on above: Order Comment: No: D o not add to previous draw Performed By: #### 0 0071, 73873, 43563 ####[facility] [facility] [place] [address], [facility] POC GLUCOSE LABon 05-27-2021 Glucose [Mass/Vol] 134 mg/dL High 70-100 [facility] Comment on above: Performed By: #### 8 5499 ####[facility] [facility] [place] [address], [place] Glucose [Mass/Vol] 109 mg/dL High 70-100 [facility] Comment on above: Performed By: #### 8 5499 ####[facility] [facility] [place] [address], [place] Glucose [Mass/Vol] 151 mg/dL High 70-100 [facility] Comment on above: Performed By: #### 8 5499 ####[facility] [facility] [place] [address], [place] Glucose [Mass/Vol] 114 mg/dL High 70-100 [facility] Comment on above: Performed By: #### 8 5499 ####[facility] [facility] [place] [address], [facility] PORTABLE CHEST 1 VIEWon PORTABLE CHEST 1 VIEW Normal [facility] Comment on above: Order Comment: evalu ate for Atelectasis RBC'S 1 UNITon 05-27-2021 CROSSMATCH INTERP 1 COMP Normal The [facility] Comment on above: Performed By: #### 8 6001 ####[facility] [facility] [place] [address], [facility] PRODUCT CODE 1 E0336 Normal [facility] Comment on above: Performed By: #### 8 6001 ####[facility] [facility] [place] [address], [facility] PRODUCT STATUS 1 PT Normal [facility] Comment on above: Result Comment: Resu lt changed by IF on 05/27/2021 11:45. The previous value was XM.Result changed by IF on 05/28/2021 00:30. The previous value was IS. Performed By: #### 8 6001 ####[facility] [facility].[address] UNIT ABO 1 O Normal [facility] Comment on above: Performed By: #### 8 6001 ####[facility] [facility].[address] UNIT ID 1 [id number] Normal [facility] Comment on above: Performed By: #### 8 6001 ####[facility] [facility].[address] UNIT RH 1 Negative Normal [facility] Comment on above: Performed By: #### 8 6001 ####[facility] [facility].[address] SEDIMENTATION RATEon 021 SED RATE 48 mm/hr High 0-10 [facility] Comment on above: Performed By: #### 5 6506, 85834 ####[facility] [facility].[address] VANCOMYCIN RANDOMon 05-27-20 21 VANCOMYCIN RAND 12.2 mcg/mL Normal [facility] Comment on above: Performed By: #### 0 0071, 73828, 74372 ####[facility] [facility].[address] BASIC METABOLIC PANELon 10-0 Calcium [Mass/Vol] 8.2 mg/dL Low 8.6-10.3 [facility] Comment on above: Order Comment: No: D o not add to previous draw Performed By: #### 1 0070, 50798 ####[facility] Chloride [Moles/Vol] 98 mmol/L Normal 98-107 [facility] Comment on above: Order Comment: No: D o not add to previous draw Performed By: #### 1 69, 89164 ####[facility] [facility] [place] [place] [address], [facility] CO2 [Moles/Vol] 30 mmol/L Normal 21-31 [facility] Comment on above: Order Comment: No: D o not add to previous draw Performed By: #### 1 69, 44171 ####[facility] [place] [address], [facility] Creatinine [Mass/Vol] 1.78 mg/dL High 0.70-1.30 [facility] Comment on above: Order Comment: No: D o not add to previous draw Performed By: #### 1 69, 46717 ####[facility] [facility] [place] [address], [facility] eGFR- 45 ml/min/1.73sq m Abnormal >60 [facility] Comment on above: Order Comment: No: D o not add to previous draw Result Comment: Calc ulation may not be valid for patients over 70 years Performed By: #### 1 69, 38024 ####[facility] [facility] [place] [address], [facility] eGFR- non- 37 ml/min/1.73sq m Abnormal >60 [facility] Comment on above: Order Comment: No: D o not add to previous draw Result Comment: Calc ulation may not be valid for patients over 70 years Performed By: #### 1 69, 84010 ####[facility] [place] [address], [facility] Glucose [Mass/Vol] 97 mg/dL Normal 70-100 [facility] Comment on above: Order Comment: No: D o not add to previous draw Performed By: #### 1 69, 72663 ####[facility] Potassium [Moles/Vol] 4.8 mmol/L Normal 3.5-5.1 [facility] Comment on above: Order Comment: No: D o not add to previous draw Performed By: #### 1 69, 36127 ####[facility] Sodium [Moles/Vol] 131 mmol/L Low 136-145 [facility] Comment on above: Order Comment: No: D o not add to previous draw Performed By: #### 1 69, 89099 ####[facility] Urea nitrogen [Mass/Vol] 35 mg/dL High 7-25 [facility] Comment on above: Order Comment: No: D o not add to previous draw Performed By: #### 1 69, 73532 ####[facility] CBC COMPLETE BLOOD COUNTon - Erythrocyte distribution width (RBC) [Ratio] 15.4 % High 11.5-15.0 [facility] Comment on above: Order Comment: No: D o not add to previous drawNurse draw Performed By: #### 5 0608 ####[place] [address] [address] Hematocrit (Bld) [Volume fraction] 24.3 % Low 39.0-50.0 [facility] Comment on above: Order Comment: No: D o not add to previous drawNurse draw Performed By: #### 5 0608 ####[address] Hemoglobin (Bld) [Mass/Vol] 7.9 g/dL Low 13.0-17.0 [facility] Comment on above: Order Comment: No: D o not add to previous drawNurse draw Performed By: #### 5 0608 ####[facility] MCH (RBC) [Entitic mass] 28.6 pg Normal 27.0-33.0 [facility] Comment on above: Order Comment: No: D o not add to previous drawNurse draw Performed By: #### 5 0608 ####[facility] [place] [address] MCHC (RBC) [Mass/Vol] 32.5 g/dL Normal 32.0-35.0 [facility] Comment on above: Order Comment: No: D o not add to previous drawNurse draw Performed By: #### 5 0608 ####[address] MCV (RBC) [Entitic vol] 88.0 fL Normal 82.0-98.0 [facility] Comment on above: Order Comment: No: D o not add to previous drawNurse draw Performed By: #### 5 0608 ####[address] Nucleated RBC/100 WBC (Bld) [Ratio] 0 % Normal 0-0 [facility] Comment on above: Order Comment: No: D o not add to previous drawNurse draw Performed By: #### 5 0608 ####[address] PLAT CNT 320 10*3/uL Normal 150-400 [facility] Comment on above: Order Comment: No: D o not add to previous drawNurse draw Performed By: #### 5 0608 ####[address] RBC (Bld) [#/Vol] 2.76 10*6/uL Low 4.20-5.70 [facility] Comment on above: Order Comment: No: D o not add to previous drawNurse draw Performed By: #### 5 0608 ####[facility] [place] [address], [facility] WBC (Bld) [#/Vol] 7.52 10*3/uL Normal 4.00-10.60 [facility] Comment on above: Order Comment: No: D o not add to previous drawNurse draw Performed By: #### 5 0608 ####[facility] [place] [address], [facility] MAGNESIUM BLOODon 05-26-2021 Magnesium [Mass/Vol] 2.1 mg/dL Normal 1.9-2.7 [facility] Comment on above: Order Comment: No: D o not add to previous draw Performed By: #### 1 0070, 07974 ####[facility]3000 [facility].[address] POC GLUCOSE LABon 05-26-2021 Glucose [Mass/Vol] 138 mg/dL High 70-100 [facility] Comment on above: Performed By: #### 8 5499 ####[facility] [facility] [place] [place] [address], [facility] Glucose [Mass/Vol] 119 mg/dL High 70-100 [facility] Comment on above: Performed By: #### 8 5499 ####[facility] [facility] [place] [place] [address], [facility] Glucose [Mass/Vol] 118 mg/dL High 70-100 [facility] Comment on above: Performed By: #### 8 5499 ####[facility] [place] [address], [facility] PORTABLE CHEST 1 VIEWon PORTABLE CHEST 1 VIEW Normal [facility] Comment on above: Order Comment: evalu ate for Atelectasis BASIC METABOLIC PANELon Calcium [Mass/Vol] 8.1 mg/dL Low 8.6-10.3 [facility] Comment on above: Order Comment: No: D o not add to previous draw Performed By: #### 3 0953, 62221, 43552 ####[facility] [place] [address], [facility] Chloride [Moles/Vol] 95 mmol/L Low 98-107 [facility] Comment on above: Order Comment: No: D o not add to previous draw Performed By: #### 3 0953, 74155, 59453 ####[facility] [place] [address], [facility] CO2 [Moles/Vol] 27 mmol/L Normal 21-31 [facility] Comment on above: Order Comment: No: D o not add to previous draw Performed By: #### 3 0953, 46751, 14748 ####[facility] [facility] [place] [place] [address], [facility] Creatinine [Mass/Vol] 2.13 mg/dL High 0.70-1.30 [facility] Comment on above: Order Comment: No: D o not add to previous draw Performed By: #### 3 0953, 28670, 18140 ####[facility] [facility].[address] eGFR- 37 ml/min/1.73sq m Abnormal >60 [facility] Comment on above: Order Comment: No: D o not add to previous draw Result Comment: Calc ulation may not be valid for patients over 70 years Performed By: #### 3 0953, 22625, 32647 ####[facility] [facility] [place] [address], [facility] eGFR- non- 30 ml/min/1.73sq m Abnormal >60 [facility] Comment on above: Order Comment: No: D o not add to previous draw Result Comment: Calc ulation may not be valid for patients over 70 years Performed By: #### 3 0953, 42461, 20951 ####[facility] [place] [address], [facility] Glucose [Mass/Vol] 122 mg/dL High 70-100 [facility] Comment on above: Order Comment: No: D o not add to previous draw Performed By: #### 3 0953, 33517, 02647 ####[facility] [id number], [facility] Potassium [Moles/Vol] 4.8 mmol/L Normal 3.5-5.1 [facility] Comment on above: Order Comment: No: D o not add to previous draw Performed By: #### 3 0953, 36535, 24270 ####[facility] [place] [address], [facility] Sodium [Moles/Vol] 128 mmol/L Low 136-145 [facility] Comment on above: Order Comment: No: D o not add to previous draw Performed By: #### 3 0953, 71133, 68471 ####[place] [address] [facility] [place] [address], [facility] Urea nitrogen [Mass/Vol] 35 mg/dL High 7-25 [facility] Comment on above: Order Comment: No: D o not add to previous draw Performed By: #### 3 0953, 18376, 25983 ####[facility] [facility] [place] [place] [address], [facility] CBC COMPLETE BLOOD COUNTon - Erythrocyte distribution width (RBC) [Ratio] 15.8 % High 11.5-15.0 [facility] Comment on above: Order Comment: No: D o not add to previous draw Performed By: #### 5 0608 ####[facility] [id number], [facility] Hematocrit (Bld) [Volume fraction] 22.3 % Low 39.0-50.0 [facility] Comment on above: Order Comment: No: D o not add to previous draw Performed By: #### 5 0608 ####[facility] [facility].[address] Hemoglobin (Bld) [Mass/Vol] 7.3 g/dL Low 13.0-17.0 [facility] Comment on above: Order Comment: No: D o not add to previous draw Performed By: #### 5 0608 ####[facility] MCH (RBC) [Entitic mass] 28.7 pg Normal 27.0-33.0 [facility] Comment on above: Order Comment: No: D o not add to previous draw Performed By: #### 5 0608 ####[facility] MCHC (RBC) [Mass/Vol] 32.7 g/dL Normal 32.0-35.0 [facility] Comment on above: Order Comment: No: D o not add to previous draw Performed By: #### 5 0608 ####[facility] [facility].[address] MCV (RBC) [Entitic vol] 87.8 fL Normal 82.0-98.0 [facility] Comment on above: Order Comment: No: D o not add to previous draw Performed By: #### 5 0608 ####[facility] Nucleated RBC/100 WBC (Bld) [Ratio] 0 % Normal 0-0 [facility] Comment on above: Order Comment: No: D o not add to previous draw Performed By: #### 5 0608 ####[facility] [place] [address], [facility] PLAT CNT 292 10*3/uL Normal 150-400 [facility] Comment on above: Order Comment: No: D o not add to previous draw Performed By: #### 5 0608 ####[facility] [place] [address], [facility] RBC (Bld) [#/Vol] 2.54 10*6/uL Low 4.20-5.70 [facility] Comment on above: Order Comment: No: D o not add to previous draw Performed By: #### 5 0608 ####[facility] [place] [address], [facility] WBC (Bld) [#/Vol] 8.90 10*3/uL Normal 4.00-10.60 [facility] Comment on above: Order Comment: No: D o not add to previous draw Performed By: #### 5 0608 ####[facility]3000 [facility].[address] HEMATOCRITon 05-25-2021 Hematocrit (Bld) [Volume fraction] 25.1 % Low 39.0-50.0 [facility] Comment on above: Order Comment: No: D o not add to previous draw Performed By: #### 9 2088, 54612 ####[facility] [place] [address], [facility] HEMOGLOBINon 05-25-2021 Hemoglobin (Bld) [Mass/Vol] 8.4 g/dL Low 13.0-17.0 [facility] Comment on above: Order Comment: No: D o not add to previous draw Performed By: #### 9 2088, 46874 ####[facility] [place] [address], [facility] MAGNESIUM BLOODon 05-25-2021 Magnesium [Mass/Vol] 2.0 mg/dL Normal 1.9-2.7 [facility] Comment on above: Order Comment: No: D o not add to previous draw Performed By: #### 3 0953, 38581, 31117 ####[facility] [place] [address], [facility] POC GLUCOSE LABon 05-25-2021 Glucose [Mass/Vol] 136 mg/dL High 70-100 [facility] Comment on above: Performed By: #### 8 5499 ####[facility] [facility] [place] [address], [place] Glucose [Mass/Vol] 115 mg/dL High 70-100 [facility] Comment on above: Performed By: #### 8 5499 ####[facility] [facility] [place] [address], [place] Glucose [Mass/Vol] 72 mg/dL Normal 70-100 [facility] Comment on above: Performed By: #### 8 5499 ####[facility] [facility] [place] [address], [facility] Glucose [Mass/Vol] 154 mg/dL High 70-100 [facility] Comment on above: Performed By: #### 8 5499 ####[facility] [facility] [place] [address], [facility] PORTABLE CHEST 1 VIEWon PORTABLE CHEST 1 VIEW Normal [facility] Comment on above: Order Comment: Evalu ate for Effusion RBC'S 2 UNITSon 05-25-2021 CROSSMATCH INTERP 1 COMP Normal [facility] Comment on above: Performed By: #### 8 6002 ####[facility] [facility] [place] [address], [facility] CROSSMATCH INTERP 2 COMP Normal [facility] Comment on above: Performed By: #### 8 6002 ####[facility] [facility] [place] [address], [facility] PRODUCT CODE 1 E0686 Normal [facility] Comment on above: Performed By: #### 8 6002 ####[facility] [facility] [place] [address], [facility] PRODUCT CODE 2 E0336 Normal [facility] Comment on above: Performed By: #### 8 6002 ####[facility] [place] [address], [facility] PRODUCT STATUS 1 PT Normal [facility] Comment on above: Result Comment: Resu lt changed by IF on 05/25/2021 13:50. The previous value was XM.Result changed by IF on 05/26/2021 00:30. The previous value was IS. Performed By: #### 8 6002 ####[facility] [facility] [place] [address], [facility] PRODUCT STATUS 2 PT Normal [facility] Comment on above: Result Comment: Resu lt changed by IF on 05/25/2021 09:50. The previous value was XM.Result changed by IF on 05/26/2021 00:30. The previous value was IS. Performed By: #### 8 6002 ####[facility] [facility] [place] [address], [facility] UNIT ABO 1 O Normal [facility] Comment on above: Performed By: #### 8 6002 ####[facility] [facility] [place] [address], [facility] UNIT ABO 2 O Normal [facility] Comment on above: Performed By: #### 8 6002 ####[facility] [facility] [place] [address], [facility] UNIT ID 1 [id number] Normal [facility] Comment on above: Performed By: #### 8 6002 ####[facility] [facility] [place] [address], [facility] UNIT ID 2 [id number] Normal [facility] Comment on above: Performed By: #### 8 6002 ####[facility] [place] [address], [facility] UNIT RH 1 Positive Normal [facility] Comment on above: Performed By: #### 8 6002 ####[facility] [place] [address], [facility] UNIT RH 2 Positive Normal [facility] Comment on above: Performed By: #### 8 6002 ####[facility] [place] [address], [facility] VANCOMYCIN TIMEDon VANCOMYCIN TIMED 24.3 mcg/mL Normal [facility] Comment on above: Performed By: #### 3 0953, 35299, 13298 ####[facility] [place] [address], [facility] BASIC METABOLIC PANELon 10-0 Calcium [Mass/Vol] 7.8 mg/dL Low 8.6-10.3 [facility] Comment on above: Order Comment: No: D o not add to previous draw Performed By: #### 0 0071, 27970, 50237, 60024 ####[facility] [place] [address], [facility] Chloride [Moles/Vol] 97 mmol/L Low 98-107 [facility] Comment on above: Order Comment: No: D o not add to previous draw Performed By: #### 0 0071, 56150, 78988, 17209 ####[facility] [place] [address], [facility] CO2 [Moles/Vol] 30 mmol/L Normal 21-31 [facility] Comment on above: Order Comment: No: D o not add to previous draw Performed By: #### 0 0071, 71505, 46891, 33353 ####[facility] [place] [address], [facility] Creatinine [Mass/Vol] 1.70 mg/dL High 0.70-1.30 [facility] Comment on above: Order Comment: No: D o not add to previous draw Performed By: #### 0 0071, 26308, 23199, 89884 ####[facility] [place] [address], [facility] eGFR- 48 ml/min/1.73sq m Abnormal >60 [facility] Comment on above: Order Comment: No: D o not add to previous draw Result Comment: Calc ulation may not be valid for patients over 70 years Performed By: #### 0 0071, 73169, 92526, 84725 ####[facility] [place] [address], [facility] eGFR- non- 39 ml/min/1.73sq m Abnormal >60 [facility] Comment on above: Order Comment: No: D o not add to previous draw Result Comment: Calc ulation may not be valid for patients over 70 years Performed By: #### 0 0071, 53350, 45661, 78323 ####[facility] [place] [address], [facility] Glucose [Mass/Vol] 132 mg/dL High 70-100 [facility] Comment on above: Order Comment: No: D o not add to previous draw Performed By: #### 0 0071, 19877, 04828, 61442 ####[facility] [place] [address], [place] Potassium [Moles/Vol] 5.2 mmol/L High 3.5-5.1 [facility] Comment on above: Order Comment: No: D o not add to previous draw Performed By: #### 0 0071, 48166, 35783, 31025 ####[facility] [place] [address], [place] Sodium [Moles/Vol] 131 mmol/L Low 136-145 [facility] Comment on above: Order Comment: No: D o not add to previous draw Performed By: #### 0 0071, 31884, 22999, 38622 ####[facility] Urea nitrogen [Mass/Vol] 27 mg/dL High 7-25 [facility] Comment on above: Order Comment: No: D o not add to previous draw Performed By: #### 0 0071, 03314, 05643, 68153 ####[facility]3000 [facility].[address] CBC COMPLETE BLOOD COUNTon Erythrocyte distribution width (RBC) [Ratio] 14.5 % Normal 11.5-15.0 [facility] Comment on above: Order Comment: No: D o not add to previous draw Performed By: #### 5 0608 ####[facility]3000 [facility].[address] Hematocrit (Bld) [Volume fraction] 23.1 % Low 39.0-50.0 [facility] Comment on above: Order Comment: No: D o not add to previous draw Performed By: #### 5 0608 ####[facility] [facility].[address] Hemoglobin (Bld) [Mass/Vol] 7.4 g/dL Low 13.0-17.0 [facility] Comment on above: Order Comment: No: D o not add to previous draw Performed By: #### 5 0608 ####[facility] [place] [address], [facility] MCH (RBC) [Entitic mass] 28.9 pg Normal 27.0-33.0 [facility] Comment on above: Order Comment: No: D o not add to previous draw Performed By: #### 5 0608 ####[facility] MCHC (RBC) [Mass/Vol] 32.0 g/dL Normal 32.0-35.0 [facility] Comment on above: Order Comment: No: D o not add to previous draw Performed By: #### 5 0608 ####[facility] [facility] [place] [address], [facility] MCV (RBC) [Entitic vol] 90.2 fL Normal 82.0-98.0 [facility] Comment on above: Order Comment: No: D o not add to previous draw Performed By: #### 5 0608 ####[address] Nucleated RBC/100 WBC (Bld) [Ratio] 0 % Normal 0-0 [facility] Comment on above: Order Comment: No: D o not add to previous draw Performed By: #### 5 0608 ####[facility] [place] [address], [facility] PLAT CNT 312 10*3/uL Normal 150-400 [facility] Comment on above: Order Comment: No: D o not add to previous draw Performed By: #### 5 0608 ####[address] [place] [address], [facility] RBC (Bld) [#/Vol] 2.56 10*6/uL Low 4.20-5.70 [facility] Comment on above: Order Comment: No: D o not add to previous draw Performed By: #### 5 0608 ####[facility] [facility] [place] [address], [facility] WBC (Bld) [#/Vol] 10.23 10*3/uL Normal 4.00-10.60 [facility] Comment on above: Order Comment: No: D o not add to previous draw Performed By: #### 5 0608 ####[facility] [place] [address], [place] MAGNESIUM BLOODon 05-24-2021 Magnesium [Mass/Vol] 1.8 mg/dL Low 1.9-2.7 [facility] Comment on above: Order Comment: No: D o not add to previous draw Performed By: #### 0 0071, 46807, 69364, 51993 ####[facility] [place] [address], [place] PHOSPHORUS BLOODon Phosphate [Mass/Vol] 5.0 mg/dL Normal 2.5-5.0 [facility] Comment on above: Order Comment: No: D o not add to previous draw Performed By: #### 0 0071, 45160, 51840, 21233 ####[facility] [place] [address], [place] POC GLUCOSE LABon 05-24-2021 Glucose [Mass/Vol] 156 mg/dL High 70-100 [facility] Comment on above: Performed By: #### 8 5499 ####[facility] [place] [address], [place] Glucose [Mass/Vol] 129 mg/dL High 70-100 [facility] Comment on above: Performed By: #### 8 5499 ####[facility] [place] [address], [place] Glucose [Mass/Vol] 188 mg/dL High 70-100 [facility] Comment on above: Performed By: #### 8 5499 ####[facility] [place] [address], [place] Glucose [Mass/Vol] 141 mg/dL High 70-100 [facility] Comment on above: Performed By: #### 8 5499 ####[facility] [place] [address], [place] RBC'S 1 UNITon 05-24-2021 CROSSMATCH INTERP 1 COMP Normal [facility] Comment on above: Performed By: #### 8 6001 ####[facility] [facility].[address] PRODUCT CODE 1 E0332 Normal [facility] Comment on above: Performed By: #### 8 6001 ####[facility] [facility].[address] PRODUCT STATUS 1 PT Normal [facility] Comment on above: Result Comment: Resu lt changed by IF on 05/24/2021 11:33. The previous value was XM.Result changed by IF on 05/25/2021 00:30. The previous value was IS. Performed By: #### 8 6001 ####[facility] [facility].[address] UNIT ABO 1 O Normal [facility] Comment on above: Performed By: #### 8 6001 ####[facility] [facility].[address] UNIT ID 1 [id number] Normal The [facility] Comment on above: Performed By: #### 8 6001 ####[facility] [facility].[address] UNIT RH 1 Positive Normal [facility] Comment on above: Performed By: #### 8 6001 ####[facility] [facility].[address] TYPE AND SCREENon 05-24-2021 ABO INTERPRETATION O Normal [facility] Comment on above: Performed By: #### 6 2586 ####[facility] [facility] [place] [address], [facility] RH INTERPRETATION Positive Normal [facility] Comment on above: Performed By: #### 6 2586 ####[facility] [place] [address], [facility] VANCOMYCIN TIMEDon VANCOMYCIN TIMED 42.1 mcg/mL Normal [facility] Comment on above: Performed By: #### 0 0071, 55262, 07295, 20163 ####[facility] BASIC METABOLIC PANELon 09-3 Calcium [Mass/Vol] 8.7 mg/dL Normal 8.6-10.3 [facility] Comment on above: Order Comment: No: D o not add to previous draw Performed By: #### 4 1000, 48274, 90350 ####[facility] [facility] [place] [address], [facility] Chloride [Moles/Vol] 97 mmol/L Low 98-107 [facility] Comment on above: Order Comment: No: D o not add to previous draw Performed By: #### 4 1000, 35145, 27468 ####[facility] [facility] [place] [address], [facility] CO2 [Moles/Vol] 32 mmol/L High 21-31 The [facility] Comment on above: Order Comment: No: D o not add to previous draw Performed By: #### 4 1000, 27107, 41944 ####[facility] [place] [address], [facility] Creatinine [Mass/Vol] 1.31 mg/dL High 0.70-1.30 [facility] Comment on above: Order Comment: No: D o not add to previous draw Performed By: #### 4 1000, 53185, 17901 ####[facility] [place] [address], [facility] eGFR- non- 53 ml/min/1.73sq m Abnormal >60 The [facility] Comment on above: Order Comment: No: D o not add to previous draw Result Comment: Calc ulation may not be valid for patients over 70 years Performed By: #### 4 999, 16347, 26401 ####[facility] [facility] [place] [address], [facility] GFR/1.73 sq M.predicted among blacks MDRD (S/P/Bld) [Vol rate/Area] mL/min/{1.73_m2} Normal >60 [facility] Comment on above: Order Comment: No: D o not add to previous draw Result Comment: Calc ulation may not be valid for patients over 70 years Performed By: #### 4 1000, 01870, 40687 ####[facility] [facility] [place] [address], [facility] Glucose [Mass/Vol] 105 mg/dL High 70-100 [facility] Comment on above: Order Comment: No: D o not add to previous draw Performed By: #### 4 999, 25024, 71417 ####[facility] [facility] [place] [address], [facility] Potassium [Moles/Vol] 4.0 mmol/L Normal 3.5-5.1 [facility] Comment on above: Order Comment: No: D o not add to previous draw Performed By: #### 4 999, 49073, 34046 ####[facility] [facility] [place] [address], [facility] Sodium [Moles/Vol] 133 mmol/L Low 136-145 [facility] Comment on above: Order Comment: No: D o not add to previous draw Performed By: #### 4 999, 70389, 48882 ####[facility] [facility] [place] [address], [place] Urea nitrogen [Mass/Vol] 24 mg/dL Normal 7-25 [facility] Comment on above: Order Comment: No: D o not add to previous draw Performed By: #### 4 999, 05339, 63414 ####[facility] CBC COMPLETE BLOOD COUNTon 0 05-23-2021 Erythrocyte distribution width (RBC) [Ratio] 14.3 % Normal 11.5-15.0 [facility] Comment on above: Order Comment: No: D o not add to previous draw Performed By: #### 5 0608 ####[facility] Hematocrit (Bld) [Volume fraction] 29.4 % Low 39.0-50.0 [facility] Comment on above: Order Comment: No: D o not add to previous draw Performed By: #### 5 0608 ####[facility] Hemoglobin (Bld) [Mass/Vol] 9.4 g/dL Low 13.0-17.0 [facility] Comment on above: Order Comment: No: D o not add to previous draw Performed By: #### 5 0608 ####[place] [address] [address] MCH (RBC) [Entitic mass] 28.5 pg Normal 27.0-33.0 [facility] Comment on above: Order Comment: No: D o not add to previous draw Performed By: #### 5 0608 ####[facility] MCHC (RBC) [Mass/Vol] 32.0 g/dL Normal 32.0-35.0 [facility] Comment on above: Order Comment: No: D o not add to previous draw Performed By: #### 5 0608 ####[facility] [place] [address] MCV (RBC) [Entitic vol] 89.1 fL Normal 82.0-98.0 [facility] Comment on above: Order Comment: No: D o not add to previous draw Performed By: #### 5 0608 ####[facility] [facility].[address] Nucleated RBC/100 WBC (Bld) [Ratio] 0 % Normal 0-0 [facility] Comment on above: Order Comment: No: D o not add to previous draw Performed By: #### 5 0608 ####[facility] [facility] [place] [address], [facility] PLAT CNT 342 10*3/uL Normal 150-400 The [facility] Comment on above: Order Comment: No: D o not add to previous draw Performed By: #### 5 0608 ####[facility] RBC (Bld) [#/Vol] 3.30 10*6/uL Low 4.20-5.70 [facility] Comment on above: Order Comment: No: D o not add to previous draw Performed By: #### 5 0608 ####[facility] [facility] [place] [address], [facility] WBC (Bld) [#/Vol] 7.22 10*3/uL Normal 4.00-10.60 [facility] Comment on above: Order Comment: No: D o not add to previous draw Performed By: #### 5 0608 ####[facility] [facility] [place] [address], [facility] MAGNESIUM BLOODon 05-23-2021 Magnesium [Mass/Vol] 1.9 mg/dL Normal 1.9-2.7 [facility] Comment on above: Order Comment: No: D o not add to previous draw Performed By: #### 4 1000, 33155, 00261 ####[facility] [facility] [place] [address], [facility] PHOSPHORUS BLOODon Phosphate [Mass/Vol] 3.4 mg/dL Normal 2.5-5.0 [facility] Comment on above: Order Comment: No: D o not add to previous draw Performed By: #### 4 1000, 29871, 98732 ####[facility] [place] [address], [place] POC GLUCOSE LABon 05-23-2021 Glucose [Mass/Vol] 141 mg/dL High 70-100 [facility] Comment on above: Performed By: #### 8 5499 ####[facility] [place] [address], [place] Glucose [Mass/Vol] 147 mg/dL High 70-100 [facility] Comment on above: Performed By: #### 8 5499 ####[facility] [place] [address], [place] Glucose [Mass/Vol] 138 mg/dL High 70-100 [facility] Comment on above: Performed By: #### 8 5499 ####[facility] [place] [address], [place] Glucose [Mass/Vol] 112 mg/dL High 70-100 [facility] Comment on above: Performed By: #### 8 5499 ####[facility] [place] [address], [place] Glucose [Mass/Vol] 121 mg/dL High 70-100 [facility] Comment on above: Performed By: #### 8 5499 ####[facility] [place] [address], [place] POC SARS COV2 ANTIGEN NEGATI VEon 05-23-2021 POC SARS COV2 ANTIGEN NEG Negative Normal NEGATIVE [facility] Comment on above: Result Comment: Nega [...] of clinicalsigns and symptoms consistent with COVID-19.The [employer] COVID-19 Ag Card is a lateral flow immunoassay intended forthe qualitative detection of nucleocapsid protein antigen [id number] in direct nasal swabs from individuals within [...] Certificate ofAccreditation. Performed By: #### 3 1977 ####[facility] PORTABLE CHEST 1 VIEWon 04-26 PORTABLE CHEST 1 VIEW Normal [facility] Comment on above: Order Comment: evalu ate for Atelectasis VANCOMYCIN RANDOMon 05-23-20 21 VANCOMYCIN RAND 19.6 mcg/mL Normal [facility] Comment on above: Order Comment: No: D o not add to previous draw Performed By: #### 9 4980 ####[place] [address] [address] BASIC METABOLIC PANELon 04-25 Calcium [Mass/Vol] 8.6 mg/dL Normal 8.6-10.3 [facility] Comment on above: Order Comment: No: D o not add to previous draw Performed By: #### 0 0071, 74305, 06184 ####[facility] Chloride [Moles/Vol] 98 mmol/L Normal 98-107 [facility] Comment on above: Order Comment: No: D o not add to previous draw Performed By: #### 0 0071, 07292, 23710 ####[facility] [place] [address], [facility] CO2 [Moles/Vol] 33 mmol/L High 21-31 [facility] Comment on above: Order Comment: No: D o not add to previous draw Performed By: #### 0 0071, 37351, 50956 ####[facility] [place] [address], [facility] Creatinine [Mass/Vol] 1.21 mg/dL Normal 0.70-1.30 [facility] Comment on above: Order Comment: No: D o not add to previous draw Performed By: #### 0 0071, 51028, 09113 ####[facility] [facility] [place] [address], [facility] eGFR- non- 58 ml/min/1.73sq m Abnormal >60 [facility] Comment on above: Order Comment: No: D o not add to previous draw Result Comment: Calc ulation may not be valid for patients over 70 years Performed By: #### 0 0071, 35169, 65606 ####[facility] [facility] [place] [address], [facility] GFR/1.73 sq M.predicted among blacks MDRD (S/P/Bld) [Vol rate/Area] mL/min/{1.73_m2} Normal >60 [facility] Comment on above: Order Comment: No: D o not add to previous draw Result Comment: Calc ulation may not be valid for patients over 70 years Performed By: #### 0 0071, 16937, 53380 ####[facility] [place] [address], [place] Glucose [Mass/Vol] 115 mg/dL High 70-100 [facility] Comment on above: Order Comment: No: D o not add to previous draw Performed By: #### 0 0071, 20631, 95745 ####[facility] [place] [address], [facility] Potassium [Moles/Vol] 3.9 mmol/L Normal 3.5-5.1 [facility] Comment on above: Order Comment: No: D o not add to previous draw Performed By: #### 0 0071, 68530, 44584 ####[facility] [id number], [facility] Sodium [Moles/Vol] 135 mmol/L Low 136-145 [facility] Comment on above: Order Comment: No: D o not add to previous draw Performed By: #### 0 0071, 36171, 99043 ####[facility] [place] [address], [facility] Urea nitrogen [Mass/Vol] 22 mg/dL Normal 7-25 [facility] Comment on above: Order Comment: No: D o not add to previous draw Performed By: #### 0 0071, 07295, 29003 ####[facility] [facility] [place] [address], [facility] CBC COMPLETE BLOOD COUNTon 0 05-22-2021 Erythrocyte distribution width (RBC) [Ratio] 14.3 % Normal 11.5-15.0 [facility] Comment on above: Order Comment: No: D o not add to previous draw Performed By: #### 5 0608 ####[facility] [id number], [facility] Hematocrit (Bld) [Volume fraction] 24.7 % Low 39.0-50.0 [facility] Comment on above: Order Comment: No: D o not add to previous draw Performed By: #### 5 0608 ####[facility] [id number], [facility] Hemoglobin (Bld) [Mass/Vol] 7.6 g/dL Low 13.0-17.0 [facility] Comment on above: Order Comment: No: D o not add to previous draw Performed By: #### 5 0608 ####[address] MCH (RBC) [Entitic mass] 28.3 pg Normal 27.0-33.0 [facility] Comment on above: Order Comment: No: D o not add to previous draw Performed By: #### 5 0608 ####[facility] MCHC (RBC) [Mass/Vol] 30.8 g/dL Low 32.0-35.0 [facility] Comment on above: Order Comment: No: D o not add to previous draw Performed By: #### 5 0608 ####[address] MCV (RBC) [Entitic vol] 91.8 fL Normal 82.0-98.0 [facility] Comment on above: Order Comment: No: D o not add to previous draw Performed By: #### 5 0608 ####[address] Nucleated RBC/100 WBC (Bld) [Ratio] 0 % Normal 0-0 [facility] Comment on above: Order Comment: No: D o not add to previous draw Performed By: #### 5 0608 ####[address] PLAT CNT 313 10*3/uL Normal 150-400 [facility] Comment on above: Order Comment: No: D o not add to previous draw Performed By: #### 5 0608 ####[address] RBC (Bld) [#/Vol] 2.69 10*6/uL Low 4.20-5.70 [facility] Comment on above: Order Comment: No: D o not add to previous draw Performed By: #### 5 0608 ####[facility] [place] [address], [facility] WBC (Bld) [#/Vol] 7.75 10*3/uL Normal 4.00-10.60 [facility] Comment on above: Order Comment: No: D o not add to previous draw Performed By: #### 5 0608 ####[facility] [facility] [place] [address], [facility] MAGNESIUM BLOODon 05-22-2021 Magnesium [Mass/Vol] 1.9 mg/dL Normal 1.9-2.7 [facility] Comment on above: Order Comment: No: D o not add to previous draw Performed By: #### 0 0071, 67275, 82768 ####[facility] [facility].[address] Operative Reporton Operative Report Normal [facility] POC GLUCOSE LABon 05-22-2021 Glucose [Mass/Vol] 126 mg/dL High 70-100 [facility] Comment on above: Performed By: #### 8 5499 ####[facility] [facility] [place] [address], [facility] Glucose [Mass/Vol] 136 mg/dL High 70-100 [facility] Comment on above: Performed By: #### 8 5499 ####[facility] [facility] [place] [address], [facility] Glucose [Mass/Vol] 156 mg/dL High 70-100 [facility] Comment on above: Performed By: #### 8 5499 ####[facility] [place] [address], [facility] PORTABLE CHEST 1 VIEWon 04-25 PORTABLE CHEST 1 VIEW Normal [facility] Comment on above: Order Comment: Evalu ate for Atelectasis, common RBC'S 1 UNITon 05-22-2021 CROSSMATCH INTERP 1 COMP Normal [facility] Comment on above: Performed By: #### 8 6001 ####[facility] PRODUCT CODE 1 E0336 Normal [facility] Comment on above: Performed By: #### 8 6001 ####[facility] PRODUCT STATUS 1 PT Normal [facility] Comment on above: Result Comment: Resu lt changed by IF on 05/22/2021 13:33. The previous value was XM.Result changed by IF on 05/23/2021 00:30. The previous value was IS. Performed By: #### 8 6001 ####[facility] UNIT ABO 1 O Normal [facility] Comment on above: Performed By: #### 8 6001 ####[facility] UNIT ID 1 [id number] Normal The [facility] Comment on above: Performed By: #### 8 6001 ####[facility] UNIT RH 1 Positive Normal [facility] Comment on above: Performed By: #### 8 6001 ####[facility] [place] [address], [facility] RBC'S 3 UNITSon 05-22-2021 CROSSMATCH INTERP 1 COMP Normal [facility] Comment on above: Order Comment: Hemog lobin < 9 gm/dl with known cardiac or cerebrovascular disease Performed By: #### 8 6003 ####[facility] [place] [address], [facility] CROSSMATCH INTERP 2 COMP Normal [facility] Comment on above: Order Comment: Hemog lobin < 9 gm/dl with known cardiac or cerebrovascular disease Performed By: #### 8 6003 ####[facility] [place] [address], [facility] CROSSMATCH INTERP 3 COMP Normal [facility] Comment on above: Order Comment: Hemog lobin < 9 gm/dl with known cardiac or cerebrovascular disease Performed By: #### 8 6003 ####[facility] [place] [address], [facility] PRODUCT CODE 1 E0336 Normal [facility] Comment on above: Order Comment: Hemog lobin < 9 gm/dl with known cardiac or cerebrovascular disease Performed By: #### 8 6003 ####[facility] [place] [address], [facility] PRODUCT CODE 2 E0685 Normal [facility] Comment on above: Order Comment: Hemog lobin < 9 gm/dl with known cardiac or cerebrovascular disease Performed By: #### 8 6003 ####[facility] [place] [address], [facility] PRODUCT CODE 3 E0336 Normal [facility] Comment on above: Order Comment: Hemog lobin < 9 gm/dl with known cardiac or cerebrovascular disease Performed By: #### 8 6003 ####[facility] [place] [address], [facility] PRODUCT STATUS 1 PT Normal [facility] Comment on above: Order Comment: Hemog lobin < 9 gm/dl with known cardiac or cerebrovascular disease Result Comment: Resu lt changed by IF on 05/22/2021 17:51. The previous value was XM.Result changed by IF on 05/23/2021 00:30. The previous value was IS. Performed By: #### 8 6003 ####[facility] [place] [address], [facility] PRODUCT STATUS 2 RE Normal [facility] Comment on above: Order Comment: Hemog lobin < 9 gm/dl with known cardiac or cerebrovascular disease Result Comment: Resu lt changed by IF on 05/24/2021 07:35. The previous value was XM. Performed By: #### 8 6003 ####[facility] [place] [address], [facility] PRODUCT STATUS 3 RE Normal [facility] Comment on above: Order Comment: Hemog lobin < 9 gm/dl with known cardiac or cerebrovascular disease Result Comment: Resu lt changed by IF on 05/24/2021 07:35. The previous value was XM. Performed By: #### 8 6003 ####[facility] [place] [id number] [place] [address] UNIT ABO 1 O Normal [facility] Comment on above: Order Comment: Hemog lobin < 9 gm/dl with known cardiac or cerebrovascular disease Performed By: #### 8 6003 ####[facility] [place] [address], [facility] UNIT ABO 2 O Normal [facility] Comment on above: Order Comment: Hemog lobin < 9 gm/dl with known cardiac or cerebrovascular disease Performed By: #### 8 6003 ####[facility] [place] [address], [facility] UNIT ABO 3 O Normal [facility] Comment on above: Order Comment: Hemog lobin < 9 gm/dl with known cardiac or cerebrovascular disease Performed By: #### 8 6003 ####[facility] [place] [address], [address] [facility]. [facility] UNIT ID 1 [id number] Normal [facility] Comment on above: Order Comment: Hemog lobin < 9 gm/dl with known cardiac or cerebrovascular disease Performed By: #### 8 6003 ####[facility] UNIT ID 2 [id number] Normal [facility] Comment on above: Order Comment: Hemog lobin < 9 gm/dl with known cardiac or cerebrovascular disease Performed By: #### 8 6003 ####[facility] UNIT ID 3 [id number] Normal [facility] Comment on above: Order Comment: Hemog lobin < 9 gm/dl with known cardiac or cerebrovascular disease Performed By: #### 8 6003 ####[facility] UNIT RH 1 Negative Normal [facility] Comment on above: Order Comment: Hemog lobin < 9 gm/dl with known cardiac or cerebrovascular disease Performed By: #### 8 6003 ####[facility] UNIT RH 2 Positive Normal [facility] Comment on above: Order Comment: Hemog lobin < 9 gm/dl with known cardiac or cerebrovascular disease Performed By: #### 8 6003 ####[facility] UNIT RH 3 Positive Normal [facility] Comment on above: Order Comment: Hemog lobin < 9 gm/dl with known cardiac or cerebrovascular disease Performed By: #### 8 6003 ####[facility] VANCOMYCIN TIMEDon 1 VANCOMYCIN TIMED 19.6 mcg/mL Normal [facility] Comment on above: Performed By: #### 0 0071, 09837, 95805 ####[facility] [place] [address], [facility] BASIC METABOLIC PANELon 09-2 Calcium [Mass/Vol] 8.5 mg/dL Low 8.6-10.3 [facility] Comment on above: Order Comment: No: D o not add to previous draw Performed By: #### 1 0070, 08018, 72831 ####[facility] [place] [address], [facility] Chloride [Moles/Vol] 96 mmol/L Low 98-107 [facility] Comment on above: Order Comment: No: D o not add to previous draw Performed By: #### 1 0070, 86406, 94031 ####[facility] [place] [address], [facility] CO2 [Moles/Vol] 37 mmol/L High 21-31 [facility] Comment on above: Order Comment: No: D o not add to previous draw Performed By: #### 1 0070, 74476, 25433 ####[facility] [place] [address], [facility] Creatinine [Mass/Vol] 0.92 mg/dL Normal 0.70-1.30 [facility] Comment on above: Order Comment: No: D o not add to previous draw Performed By: #### 1 0070, 90608, 02842 ####[facility] [place] [address], [facility] GFR/1.73 sq M.predicted among blacks MDRD (S/P/Bld) [Vol rate/Area] mL/min/{1.73_m2} Normal >60 [facility] Comment on above: Order Comment: No: D o not add to previous draw Result Comment: Calc ulation may not be valid for patients over 70 years Performed By: #### 1 0070, 34867, 76354 ####[facility] [place] [address], [place] GFR/1.73 sq M.predicted among non-blacks MDRD (S/P/Bld) [Vol rate/Area] mL/min/{1.73_m2} Normal >60 [facility] Comment on above: Order Comment: No: D o not add to previous draw Result Comment: Calc ulation may not be valid for patients over 70 years Performed By: #### 1 0070, 00302, 22202 ####[facility] [place] [address], [facility] Glucose [Mass/Vol] 117 mg/dL High 70-100 [facility] Comment on above: Order Comment: No: D o not add to previous draw Performed By: #### 1 0070, 81463, 48722 ####[facility] [place] [address], [facility] Potassium [Moles/Vol] 3.9 mmol/L Normal 3.5-5.1 [facility] Comment on above: Order Comment: No: D o not add to previous draw Performed By: #### 1 0070, 71678, 02556 ####[facility] [facility] [place] [address], [facility] Sodium [Moles/Vol] 134 mmol/L Low 136-145 [facility] Comment on above: Order Comment: No: D o not add to previous draw Performed By: #### 1 0070, 33653, 48505 ####[facility] [place] [address], [facility] Urea nitrogen [Mass/Vol] 17 mg/dL Normal 7-25 [facility] Comment on above: Order Comment: No: D o not add to previous draw Performed By: #### 1 0070, 44154, 40981 ####[facility] [place] [address], [facility] CBC COMPLETE BLOOD COUNTon 0 05-21-2021 Erythrocyte distribution width (RBC) [Ratio] 14.3 % Normal 11.5-15.0 [facility] Comment on above: Order Comment: No: D o not add to previous draw Performed By: #### 5 0608 ####[facility] Hematocrit (Bld) [Volume fraction] 27.2 % Low 39.0-50.0 [facility] Comment on above: Order Comment: No: D o not add to previous draw Performed By: #### 5 0608 ####[facility] [place] [address] Hemoglobin (Bld) [Mass/Vol] 8.1 g/dL Low 13.0-17.0 [facility] Comment on above: Order Comment: No: D o not add to previous draw Performed By: #### 5 0608 ####[address] MCH (RBC) [Entitic mass] 27.6 pg Normal 27.0-33.0 [facility] Comment on above: Order Comment: No: D o not add to previous draw Performed By: #### 5 0608 ####[address] MCHC (RBC) [Mass/Vol] 29.8 g/dL Low 32.0-35.0 [facility] Comment on above: Order Comment: No: D o not add to previous draw Performed By: #### 5 0608 ####[address] MCV (RBC) [Entitic vol] 92.8 fL Normal 82.0-98.0 [facility] Comment on above: Order Comment: No: D o not add to previous draw Performed By: #### 5 0608 ####[address] Nucleated RBC/100 WBC (Bld) [Ratio] 0 % Normal 0-0 [facility] Comment on above: Order Comment: No: D o not add to previous draw Performed By: #### 5 0608 ####[facility] [facility].[address] PLAT CNT 329 10*3/uL Normal 150-400 [facility] Comment on above: Order Comment: No: D o not add to previous draw Performed By: #### 5 0608 ####[facility] [facility].[address] RBC (Bld) [#/Vol] 2.93 10*6/uL Low 4.20-5.70 [facility] Comment on above: Order Comment: No: D o not add to previous draw Performed By: #### 5 0608 ####[facility] [facility].[address] WBC (Bld) [#/Vol] 6.21 10*3/uL Normal 4.00-10.60 [facility] Comment on above: Order Comment: No: D o not add to previous draw Performed By: #### 5 0608 ####[facility] [facility].[address] MAGNESIUM BLOODon 05-21-2021 Magnesium [Mass/Vol] 2.0 mg/dL Normal 1.9-2.7 [facility] Comment on above: Order Comment: No: D o not add to previous draw Performed By: #### 1 0070, 78791, 43769 ####[facility] [facility].[address] Operative Reporton 1 Operative Report Normal [facility] PHOSPHORUS BLOODon 1 Phosphate [Mass/Vol] 4.0 mg/dL Normal 2.5-5.0 [facility] Comment on above: Order Comment: No: D o not add to previous draw Performed By: #### 1 0070, 78055, 28557 ####[facility] [facility] [place] [address], [facility] POC GLUCOSE LABon 05-21-2021 Glucose [Mass/Vol] 143 mg/dL High 70-100 [facility] Comment on above: Performed By: #### 8 5499 ####[facility] [facility] [place] [address], [place] Glucose [Mass/Vol] 123 mg/dL High 70-100 [facility] Comment on above: Performed By: #### 8 5499 ####[facility] [facility] [place] [address], [place] Glucose [Mass/Vol] 128 mg/dL High 70-100 [facility] Comment on above: Performed By: #### 8 5499 ####[facility] [facility] [place] [address], [place] Glucose [Mass/Vol] 158 mg/dL High 70-100 [facility] Comment on above: Performed By: #### 8 5499 ####[facility] [facility] [place] [address], [facility] PORTABLE CHEST 1 VIEWon 04-25 PORTABLE CHEST 1 VIEW Normal [facility] Comment on above: Order Comment: evalu ate for Atelectasis PROTHROMBIN TIMEon INR Coag (PPP) [Relative time] 1.12 {INR} Normal 0.91-1.16 [facility] Comment on above: Order Comment: No: [...] OF ACTION, CLINICALEFFECTIVENESS, AND OPTIMAL THERAPEUTIC RANGE. [id number];108:231S-246S. Performed By: #### 5 6101 ####[place] [address] PT Coag (PPP) [Time] 14.4 s Normal 12.3-14.8 [facility] Comment on above: Order Comment: No: D o not add to previous draw Result Comment: ALL RESULTS MUST BE INTERPRETED WITH RESPECT TO BLOOD DRAWING ARTIFACTOR DILUTION ERROR OF ANTICOAGULANT AT THE TIME OF SAMPLING. Performed By: #### 5 6101 ####[place] [address] [facility].[address] BASIC METABOLIC PANELon 09-2 Calcium [Mass/Vol] 8.8 mg/dL Normal 8.6-10.3 [facility] Comment on above: Order Comment: No: D o not add to previous draw Performed By: #### 1 0070, 06698, 09488 ####[facility] [facility] [place] [address], [facility] Chloride [Moles/Vol] 96 mmol/L Low 98-107 [facility] Comment on above: Order Comment: No: D o not add to previous draw Performed By: #### 1 0070, 52736, 85949 ####[facility] [facility] [place] [address], [facility] CO2 [Moles/Vol] 33 mmol/L High 21-31 [facility] Comment on above: Order Comment: No: D o not add to previous draw Performed By: #### 1 0070, 28071, 23461 ####[facility] [place] [address], [place] Creatinine [Mass/Vol] 0.90 mg/dL Normal 0.70-1.30 [facility] Comment on above: Order Comment: No: D o not add to previous draw Performed By: #### 1 0, 11363, 42221 ####[facility] [place] [address], [place] GFR/1.73 sq M.predicted among blacks MDRD (S/P/Bld) [Vol rate/Area] mL/min/{1.73_m2} Normal >60 [facility] Comment on above: Order Comment: No: D o not add to previous draw Result Comment: Calc ulation may not be valid for patients over 70 years Performed By: #### 1 0, 64592, 03186 ####[facility] [place] [address], [place] GFR/1.73 sq M.predicted among non-blacks MDRD (S/P/Bld) [Vol rate/Area] mL/min/{1.73_m2} Normal >60 [facility] Comment on above: Order Comment: No: D o not add to previous draw Result Comment: Calc ulation may not be valid for patients over 70 years Performed By: #### 1 0, 08879, 88718 ####[facility] [place] [address], [place] Glucose [Mass/Vol] 113 mg/dL High 70-100 [facility] Comment on above: Order Comment: No: D o not add to previous draw Performed By: #### 1 0070, 84836, 82286 ####[facility] [place] [address], [place] Potassium [Moles/Vol] 3.6 mmol/L Normal 3.5-5.1 [facility] Comment on above: Order Comment: No: D o not add to previous draw Performed By: #### 1 0070, 65663, 39623 ####[facility] [place] [address], [facility] Sodium [Moles/Vol] 135 mmol/L Low 136-145 [facility] Comment on above: Order Comment: No: D o not add to previous draw Performed By: #### 1 0070, 88864, 87824 ####[facility] [facility] [place] [address], [facility] Urea nitrogen [Mass/Vol] 15 mg/dL Normal 7-25 [facility] Comment on above: Order Comment: No: D o not add to previous draw Performed By: #### 1 0, 81668, 46386 ####[facility] [facility] CBC COMPLETE BLOOD COUNTon 0 05-20-2021 Erythrocyte distribution width (RBC) [Ratio] 14.1 % Normal 11.5-15.0 [facility] Comment on above: Order Comment: No: D o not add to previous draw Performed By: #### 5 0608 ####[facility] [facility] [place] [address], [facility] Hematocrit (Bld) [Volume fraction] 28.9 % Low 39.0-50.0 [facility] Comment on above: Order Comment: No: D o not add to previous draw Performed By: #### 5 0608 ####[facility] [facility] [place] [address], [facility] Hemoglobin (Bld) [Mass/Vol] 8.9 g/dL Low 13.0-17.0 [facility] Comment on above: Order Comment: No: D o not add to previous draw Performed By: #### 5 0608 ####[facility] MCH (RBC) [Entitic mass] 28.3 pg Normal 27.0-33.0 [facility] Comment on above: Order Comment: No: D o not add to previous draw Performed By: #### 5 0608 ####[facility] [facility] [place] [address], [facility] MCHC (RBC) [Mass/Vol] 30.8 g/dL Low 32.0-35.0 [facility] Comment on above: Order Comment: No: D o not add to previous draw Performed By: #### 5 0608 ####[address] MCV (RBC) [Entitic vol] 92.0 fL Normal 82.0-98.0 [facility] Comment on above: Order Comment: No: D o not add to previous draw Performed By: #### 5 0608 ####[address] Nucleated RBC/100 WBC (Bld) [Ratio] 0 % Normal 0-0 [facility] Comment on above: Order Comment: No: D o not add to previous draw Performed By: #### 5 0608 ####[place] [address] PLAT CNT 339 10*3/uL Normal 150-400 [facility] Comment on above: Order Comment: No: D o not add to previous draw Performed By: #### 5 0608 ####[facility] [place] [address], [facility] RBC (Bld) [#/Vol] 3.14 10*6/uL Low 4.20-5.70 [facility] Comment on above: Order Comment: No: D o not add to previous draw Performed By: #### 5 0608 ####[facility] [place], [place] [id number], [place] WBC (Bld) [#/Vol] 6.69 10*3/uL Normal 4.00-10.60 [facility] Comment on above: Order Comment: No: D o not add to previous draw Performed By: #### 5 0608 ####[facility] Erythrocyte distribution width (RBC) [Ratio] 14.1 % Normal 11.5-15.0 [facility] Comment on above: Order Comment: No: D o not add to previous draw Performed By: #### 5 0608 ####[place] [address] [address] Hematocrit (Bld) [Volume fraction] 29.5 % Low 39.0-50.0 [facility] Comment on above: Order Comment: No: D o not add to previous draw Performed By: #### 5 0608 ####[facility] Hemoglobin (Bld) [Mass/Vol] 9.3 g/dL Low 13.0-17.0 [facility] Comment on above: Order Comment: No: D o not add to previous draw Performed By: #### 5 0608 ####[facility] MCH (RBC) [Entitic mass] 28.2 pg Normal 27.0-33.0 [facility] Comment on above: Order Comment: No: D o not add to previous draw Performed By: #### 5 0608 ####[facility] MCHC (RBC) [Mass/Vol] 31.5 g/dL Low 32.0-35.0 [facility] Comment on above: Order Comment: No: D o not add to previous draw Performed By: #### 5 0608 ####[facility] [place] [address], [facility] MCV (RBC) [Entitic vol] 89.4 fL Normal 82.0-98.0 [facility] Comment on above: Order Comment: No: D o not add to previous draw Performed By: #### 5 0608 ####[facility] [place] [address], [facility] Nucleated RBC/100 WBC (Bld) [Ratio] 0 % Normal 0-0 [facility] Comment on above: Order Comment: No: D o not add to previous draw Performed By: #### 5 0608 ####[facility] [place] [address], [facility] PLAT CNT 338 10*3/uL Normal 150-400 [facility] Comment on above: Order Comment: No: D o not add to previous draw Performed By: #### 5 0608 ####[place] [address], [facility] RBC (Bld) [#/Vol] 3.30 10*6/uL Low 4.20-5.70 [facility] Comment on above: Order Comment: No: D o not add to previous draw Performed By: #### 5 0608 ####[facility] [facility] [place] [address], [facility] WBC (Bld) [#/Vol] 6.66 10*3/uL Normal 4.00-10.60 [facility] Comment on above: Order Comment: No: D o not add to previous draw Performed By: #### 5 0608 ####[place] [address], [facility] MAGNESIUM BLOODon 05-20-2021 Magnesium [Mass/Vol] 1.9 mg/dL Normal 1.9-2.7 [facility] Comment on above: Order Comment: No: D o not add to previous draw Performed By: #### 1 0070, 69458, 72163 ####[facility] [place] [address], [place] PHOSPHORUS BLOODon 1 Phosphate [Mass/Vol] 3.7 mg/dL Normal 2.5-5.0 [facility] Comment on above: Order Comment: No: D o not add to previous draw Performed By: #### 1 0, 40398, 99265 ####[facility] [place] [address], [place] POC GLUCOSE LABon 05-20-2021 Glucose [Mass/Vol] 130 mg/dL High 70-100 [facility] Comment on above: Performed By: #### 8 5499 ####[facility] [place] [address], [place] Glucose [Mass/Vol] 119 mg/dL High 70-100 [facility] Comment on above: Performed By: #### 8 5499 ####[facility] [place] [address], [place] Glucose [Mass/Vol] 118 mg/dL High 70-100 [facility] Comment on above: Performed By: #### 8 5499 ####[facility] [place] [address], [place] Glucose [Mass/Vol] 118 mg/dL High 70-100 [facility] Comment on above: Performed By: #### 8 5499 ####[facility] [place] [address], [place] Glucose [Mass/Vol] 119 mg/dL High 70-100 [facility] Comment on above: Performed By: #### 8 5499 ####[facility] [place] [address], [place] PROTHROMBIN TIMEon 1 INR Coag (PPP) [Relative time] 1.09 {INR} Normal 0.91-1.16 [facility] Comment on above: Order Comment: No: [...] OF ACTION, CLINICALEFFECTIVENESS, AND OPTIMAL THERAPEUTIC RANGE. [id number];108:231S-246S. Performed By: #### 5 6101 ####[facility] [facility].[address] PT Coag (PPP) [Time] 14.1 s Normal 12.3-14.8 [facility] Comment on above: Order Comment: No: D o not add to previous draw Result Comment: ALL RESULTS MUST BE INTERPRETED WITH RESPECT TO BLOOD DRAWING ARTIFACTOR DILUTION ERROR OF ANTICOAGULANT AT THE TIME OF SAMPLING. Performed By: #### 5 6101 ####[facility] [facility].[address] TYPE AND SCREENon 05-20-2021 ABO INTERPRETATION O Normal [facility] Comment on above: Performed By: #### 6 2586 ####[facility] [facility] [place] [address], [facility] RH INTERPRETATION Positive Normal The [facility] Comment on above: Performed By: #### 6 2586 ####[facility] *MRSA/MSSA DNA NASALon 05-19 *MRSA/MSSA DNA NASAL Clinical Report: (D) Specimen: NASAL SWAB Collected: 05/19/2021 10:27 Status: Final Last Updated: 05/19/2021 15:02 MSSA DNA (Final) Negative MRSA DNA (Final) Negative Normal [facility] Comment on above: Performed By: #### 3 1595 ####[facility] CBC W/DIFFon 05-19-2021 ABS IMM GRANS 0.0 10*3/uL Normal 0.0-0.2 [facility] Comment on above: Order Comment: No: D o not add to previous draw Performed By: #### 5 0103 ####[facility] ABS NEUTROPHILS 4.3 10*3/uL Normal 1.6-7.6 [facility] Comment on above: Order Comment: No: D o not add to previous draw Performed By: #### 5 0103 ####[facility] Basophils (Bld) [#/Vol] 0.0 10*3/uL Normal 0.0-0.2 [facility] Comment on above: Order Comment: No: D o not add to previous draw Performed By: #### 5 0103 ####[facility] Basophils/100 WBC (Bld) 0.5 % Normal 0.0-1.0 [facility] Comment on above: Order Comment: No: D o not add to previous draw Performed By: #### 5 0103 ####[facility] Eosinophils (Bld) [#/Vol] 0.2 10*3/uL Normal 0.0-0.5 [facility] Comment on above: Order Comment: No: D o not add to previous draw Performed By: #### 5 0103 ####[place] [address] [address] Eosinophils/100 WBC (Bld) 3.1 % Normal 0.0-6.0 [facility] Comment on above: Order Comment: No: D o not add to previous draw Performed By: #### 5 0103 ####[address] Erythrocyte distribution width (RBC) [Ratio] 14.2 % Normal 11.5-15.0 [facility] Comment on above: Order Comment: No: D o not add to previous draw Performed By: #### 5 0103 ####[place] [address] [address] Hematocrit (Bld) [Volume fraction] 29.0 % Low 39.0-50.0 [facility] Comment on above: Order Comment: No: D o not add to previous draw Performed By: #### 5 0103 ####[place] [address] [address] Hemoglobin (Bld) [Mass/Vol] 9.2 g/dL Low 13.0-17.0 [facility] Comment on above: Order Comment: No: D o not add to previous draw Performed By: #### 5 0103 ####[place] [address] [place] [address], [facility] IMMATURE GRANS 0.5 % Normal 0.0-1.0 [facility] Comment on above: Order Comment: No: D o not add to previous draw Performed By: #### 5 0103 ####[address] [place] [address], [place] Lymphocytes (Bld) [#/Vol] 1.0 10*3/uL Low 1.2-4.0 [facility] Comment on above: Order Comment: No: D o not add to previous draw Performed By: #### 5 0103 ####[address] Lymphocytes/100 WBC (Bld) 15.9 % Low 20.0-45.0 [facility] Comment on above: Order Comment: No: D o not add to previous draw Performed By: #### 5 0103 ####[address] MCH (RBC) [Entitic mass] 28.5 pg Normal 27.0-33.0 [facility] Comment on above: Order Comment: No: D o not add to previous draw Performed By: #### 5 0103 ####[facility] [place] [address] MCHC (RBC) [Mass/Vol] 31.7 g/dL Low 32.0-35.0 [facility] Comment on above: Order Comment: No: D o not add to previous draw Performed By: #### 5 0103 ####[address] MCV (RBC) [Entitic vol] 89.8 fL Normal 82.0-98.0 [facility] Comment on above: Order Comment: No: D o not add to previous draw Performed By: #### 5 0103 ####[place] [address], [facility] Monocytes (Bld) [#/Vol] 0.6 10*3/uL Normal 0.1-1.0 [facility] Comment on above: Order Comment: No: D o not add to previous draw Performed By: #### 5 0103 ####[facility] [place] [address], [facility] MONOS 10.2 % Normal 5.0-12.0 [facility] Comment on above: Order Comment: No: D o not add to previous draw Performed By: #### 5 3 ####[facility] [place] [address], [place] Neutrophils/100 WBC (Bld) 69.8 % Normal 40.0-72.0 [facility] Comment on above: Order Comment: No: D o not add to previous draw Performed By: #### 5 3 ####[facility] [facility] [place] [address], [facility] Nucleated RBC/100 WBC (Bld) [Ratio] 0 % Normal 0-0 [facility] Comment on above: Order Comment: No: D o not add to previous draw Performed By: #### 5 3 ####[facility] [place] [address], [facility] PLAT CNT 294 10*3/uL Normal 150-400 [facility] Comment on above: Order Comment: No: D o not add to previous draw Performed By: #### 5 3 ####[facility] [facility] [place] [address], [facility] RBC (Bld) [#/Vol] 3.23 10*6/uL Low 4.20-5.70 [facility] Comment on above: Order Comment: No: D o not add to previous draw Performed By: #### 5 3 ####[facility] [place] [address], [place] WBC (Bld) [#/Vol] 6.09 10*3/uL Normal 4.00-10.60 [facility] Comment on above: Order Comment: No: D o not add to previous draw Performed By: #### 5 3 ####[facility] [place] [address], [facility] COMP METABOLIC PANELon 05-19 Albumin [Mass/Vol] 2.8 g/dL Low 3.5-5.7 [facility] Comment on above: Order Comment: No: D o not add to previous draw Performed By: #### 4 1000, 65936, 08655 ####[facility] [place] [address], [facility] ALKALINE PHOSPH 59 IU/L Normal 34-104 The [facility] Comment on above: Order Comment: No: D o not add to previous draw Performed By: #### 4 1000, 37390, 52823 ####[facility] [facility] [place] [address], [facility] ALT [Catalytic activity/Vol] 9 U/L Normal 7-52 [facility] Comment on above: Order Comment: No: D o not add to previous draw Performed By: #### 4 1000, 46666, 62311 ####[facility] [id number], [facility] AST [Catalytic activity/Vol] 20 U/L Normal 13-39 [facility] Comment on above: Order Comment: No: D o not add to previous draw Performed By: #### 4 1000, 80665, 62536 ####[facility] [id number], [facility] Bilirubin [Mass/Vol] 0.6 mg/dL Normal 0.3-1.0 [facility] Comment on above: Order Comment: No: D o not add to previous draw Performed By: #### 4 1000, 17950, 42374 ####[facility] [id number], [facility] Calcium [Mass/Vol] 8.5 mg/dL Low 8.6-10.3 [facility] Comment on above: Order Comment: No: D o not add to previous draw Performed By: #### 4 1000, 83697, 96747 ####[facility] [place] [address], [place] Chloride [Moles/Vol] 98 mmol/L Normal 98-107 [facility] Comment on above: Order Comment: No: D o not add to previous draw Performed By: #### 4 1000, 48043, 28542 ####[facility] [place] [address], [place] CO2 [Moles/Vol] 31 mmol/L Normal 21-31 The [facility] Comment on above: Order Comment: No: D o not add to previous draw Performed By: #### 4 1000, 78343, 43118 ####[facility] [place] [address], [place] Creatinine [Mass/Vol] 0.74 mg/dL Normal 0.70-1.30 [facility] Comment on above: Order Comment: No: D o not add to previous draw Performed By: #### 4 1000, 68045, 26623 ####[facility] [place] [address], [place] GFR/1.73 sq M.predicted among blacks MDRD (S/P/Bld) [Vol rate/Area] mL/min/{1.73_m2} Normal >60 [facility] Comment on above: Order Comment: No: D o not add to previous draw Result Comment: Calc ulation may not be valid for patients over 70 years Performed By: #### 4 1000, 94199, 03760 ####[facility] [place] [address], [place] GFR/1.73 sq M.predicted among non-blacks MDRD (S/P/Bld) [Vol rate/Area] mL/min/{1.73_m2} Normal >60 [facility] Comment on above: Order Comment: No: D o not add to previous draw Result Comment: Calc ulation may not be valid for patients over 70 years Performed By: #### 4 1000, 08480, 56535 ####[facility] [place] [address], [place] Glucose [Mass/Vol] 143 mg/dL High 70-100 [facility] Comment on above: Order Comment: No: D o not add to previous draw Performed By: #### 4 1000, 97042, 50914 ####[facility] [place] [address], [place] Potassium [Moles/Vol] 3.4 mmol/L Low 3.5-5.1 [facility] Comment on above: Order Comment: No: D o not add to previous draw Performed By: #### 4 1000, 86794, 93766 ####[facility] [place] [address], [place] Protein [Mass/Vol] 6.7 g/dL Normal 6.0-8.3 [facility] Comment on above: Order Comment: No: D o not add to previous draw Performed By: #### 4 1000, 89251, 08060 ####[facility] [place] [address], [place] Sodium [Moles/Vol] 134 mmol/L Low 136-145 [facility] Comment on above: Order Comment: No: D o not add to previous draw Performed By: #### 4 1000, 95205, 76655 ####[facility] [place] [address], [place] Urea nitrogen [Mass/Vol] 14 mg/dL Normal 7-25 [facility] Comment on above: Order Comment: No: D o not add to previous draw Performed By: #### 4 1000, 34413, 73780 ####[facility] [place] [address], [place] MAGNESIUM BLOODon 05-19-2021 Magnesium [Mass/Vol] 1.9 mg/dL Normal 1.9-2.7 [facility] Comment on above: Order Comment: No: D o not add to previous draw Performed By: #### 4 1000, 89108, 87554 ####[facility] [place] [address], [facility] PHOSPHORUS BLOODon 1 Phosphate [Mass/Vol] 3.1 mg/dL Normal 2.5-5.0 [facility] Comment on above: Order Comment: No: D o not add to previous draw Performed By: #### 4 1000, 70777, 91167 ####[facility] [place] [address], [facility] POC GLUCOSE LABon 05-19-2021 Glucose [Mass/Vol] 124 mg/dL High 70-100 [facility] Comment on above: Performed By: #### 8 5499 ####[facility] [facility] [place] [address], [place] Glucose [Mass/Vol] 132 mg/dL High 70-100 [facility] Comment on above: Performed By: #### 8 5499 ####[facility] [facility] [place] [address], [place] Glucose [Mass/Vol] 153 mg/dL High 70-100 [facility] Comment on above: Performed By: #### 8 5499 ####[facility] [facility] [place] [address], [place] Glucose [Mass/Vol] 133 mg/dL High 70-100 [facility] Comment on above: Performed By: #### 8 5499 ####[facility] [facility] [place] [address], [facility] POC SARS COV2 ANTIGEN NEGATI VEon 05-19-2021 POC SARS COV2 ANTIGEN NEG Negative Normal NEGATIVE [facility] Comment on above: Result Comment: Nega [...] of clinicalsigns and symptoms consistent with COVID-19.The [employer] COVID-19 Ag Card is a lateral flow immunoassay intended forthe qualitative detection of nucleocapsid protein antigen [id number] in direct nasal swabs from individuals within [...] Certificate ofAccreditation. Performed By: #### 3 1976 ####[address] VANCOMYCIN TIMEDon VANCOMYCIN TIMED 16.3 mcg/mL Normal [facility] Comment on above: Performed By: #### 3 0953 ####[address] CBC W/DIFFon 05-18-2021 ABS IMM GRANS 0.0 10*3/uL Normal 0.0-0.2 [facility] Comment on above: Order Comment: No: D o not add to previous draw Performed By: #### 5 0103 ####[address] ABS NEUTROPHILS 5.1 10*3/uL Normal 1.6-7.6 [facility] Comment on above: Order Comment: No: D o not add to previous draw Performed By: #### 5 0103 ####[address] [place] [address], [facility] Basophils (Bld) [#/Vol] 0.0 10*3/uL Normal 0.0-0.2 [facility] Comment on above: Order Comment: No: D o not add to previous draw Performed By: #### 5 0103 ####[facility] [place] [address], [facility] Basophils/100 WBC (Bld) 0.4 % Normal 0.0-1.0 [facility] Comment on above: Order Comment: No: D o not add to previous draw Performed By: #### 5 0103 ####[place] [address] [place] [address], [facility] Eosinophils (Bld) [#/Vol] 0.2 10*3/uL Normal 0.0-0.5 [facility] Comment on above: Order Comment: No: D o not add to previous draw Performed By: #### 5 0103 ####[facility] [place] [address], [facility] Eosinophils/100 WBC (Bld) 2.6 % Normal 0.0-6.0 [facility] Comment on above: Order Comment: No: D o not add to previous draw Performed By: #### 5 3 ####[place] [address] [address] Erythrocyte distribution width (RBC) [Ratio] 14.1 % Normal 11.5-15.0 [facility] Comment on above: Order Comment: No: D o not add to previous draw Performed By: #### 5 0103 ####[place] [address] [place] [address], [facility] Hematocrit (Bld) [Volume fraction] 27.5 % Low 39.0-50.0 [facility] Comment on above: Order Comment: No: D o not add to previous draw Performed By: #### 5 0103 ####[facility] Hemoglobin (Bld) [Mass/Vol] 8.6 g/dL Low 13.0-17.0 [facility] Comment on above: Order Comment: No: D o not add to previous draw Performed By: #### 5 0103 ####[facility] [place] [address], [facility] IMMATURE GRANS 0.1 % Normal 0.0-1.0 [facility] Comment on above: Order Comment: No: D o not add to previous draw Performed By: #### 5 0103 ####[address] Lymphocytes (Bld) [#/Vol] 1.3 10*3/uL Normal 1.2-4.0 [facility] Comment on above: Order Comment: No: D o not add to previous draw Performed By: #### 5 0103 ####[facility] [place] [address] Lymphocytes/100 WBC (Bld) 18.0 % Low 20.0-45.0 [facility] Comment on above: Order Comment: No: D o not add to previous draw Performed By: #### 5 0103 ####[facility] MCH (RBC) [Entitic mass] 28.7 pg Normal 27.0-33.0 [facility] Comment on above: Order Comment: No: D o not add to previous draw Performed By: #### 5 0103 ####[facility] [place] [address], [facility] MCHC (RBC) [Mass/Vol] 31.3 g/dL Low 32.0-35.0 [facility] Comment on above: Order Comment: No: D o not add to previous draw Performed By: #### 5 0103 ####[facility] [place] [address], [facility] MCV (RBC) [Entitic vol] 91.7 fL Normal 82.0-98.0 [facility] Comment on above: Order Comment: No: D o not add to previous draw Performed By: #### 5 0103 ####[facility] [place] [address], [facility] Monocytes (Bld) [#/Vol] 0.7 10*3/uL Normal 0.1-1.0 [facility] Comment on above: Order Comment: No: D o not add to previous draw Performed By: #### 5 0103 ####[facility] [facility] [place] [address], [facility] MONOS 10.0 % Normal 5.0-12.0 [facility] Comment on above: Order Comment: No: D o not add to previous draw Performed By: #### 5 0103 ####[facility] [facility] [place] [address], [facility] Neutrophils/100 WBC (Bld) 68.9 % Normal 40.0-72.0 [facility] Comment on above: Order Comment: No: D o not add to previous draw Performed By: #### 5 3 ####[facility] [facility] [place] [address], [facility] Nucleated RBC/100 WBC (Bld) [Ratio] 0 % Normal 0-0 [facility] Comment on above: Order Comment: No: D o not add to previous draw Performed By: #### 5 0103 ####[facility] [place] [address], [facility] PLAT CNT 288 10*3/uL Normal 150-400 [facility] Comment on above: Order Comment: No: D o not add to previous draw Performed By: #### 5 3 ####[facility] [place] [address], [facility] RBC (Bld) [#/Vol] 3.00 10*6/uL Low 4.20-5.70 [facility] Comment on above: Order Comment: No: D o not add to previous draw Performed By: #### 5 0103 ####[facility] [place] [address], [facility] WBC (Bld) [#/Vol] 7.40 10*3/uL Normal 4.00-10.60 [facility] Comment on above: Order Comment: No: D o not add to previous draw Performed By: #### 5 0103 ####[place] [address] [facility] COMP METABOLIC PANELon 05-18 Albumin [Mass/Vol] 2.7 g/dL Low 3.5-5.7 [facility] Comment on above: Order Comment: No: D o not add to previous draw Performed By: #### 4 1000, 17990, 72538, 40518 ####[facility] [facility].[address] ALKALINE PHOSPH 62 IU/L Normal 34-104 The [facility] Comment on above: Order Comment: No: D o not add to previous draw Performed By: #### 4 1000, 58071, 79459, 45534 ####[facility] ALT [Catalytic activity/Vol] 11 U/L Normal 7-52 [facility] Comment on above: Order Comment: No: D o not add to previous draw Performed By: #### 4 1000, 22548, 91598, 90561 ####[facility] [place] [address], [facility] AST [Catalytic activity/Vol] 31 U/L Normal 13-39 [facility] Comment on above: Order Comment: No: D o not add to previous draw Performed By: #### 4 1000, 42564, 69619, 97053 ####[facility] [place] [address], [place] Bilirubin [Mass/Vol] 0.8 mg/dL Normal 0.3-1.0 [facility] Comment on above: Order Comment: No: D o not add to previous draw Performed By: #### 4 1000, 70911, 48579, 49363 ####[facility] [place] [address], [place] Calcium [Mass/Vol] 8.0 mg/dL Low 8.6-10.3 [facility] Comment on above: Order Comment: No: D o not add to previous draw Performed By: #### 4 1000, 62303, 66451, 23989 ####[facility] [place] [address], [place] Chloride [Moles/Vol] 98 mmol/L Normal 98-107 [facility] Comment on above: Order Comment: No: D o not add to previous draw Performed By: #### 4 1000, 72431, 11480, 83414 ####[facility] [place] [address], [place] CO2 [Moles/Vol] 33 mmol/L High 21-31 [facility] Comment on above: Order Comment: No: D o not add to previous draw Performed By: #### 4 1000, 64084, 13120, 38483 ####[facility] [place] [address], [place] Creatinine [Mass/Vol] 0.89 mg/dL Normal 0.70-1.30 [facility] Comment on above: Order Comment: No: D o not add to previous draw Performed By: #### 4 1000, 30343, 53581, 47817 ####[facility] [place] [address], [place] GFR/1.73 sq M.predicted among blacks MDRD (S/P/Bld) [Vol rate/Area] mL/min/{1.73_m2} Normal >60 [facility] Comment on above: Order Comment: No: D o not add to previous draw Result Comment: Calc ulation may not be valid for patients over 70 years Performed By: #### 4 1000, 89189, 23832, 79016 ####[facility] [place] [address], [facility] GFR/1.73 sq M.predicted among non-blacks MDRD (S/P/Bld) [Vol rate/Area] mL/min/{1.73_m2} Normal >60 [facility] Comment on above: Order Comment: No: D o not add to previous draw Result Comment: Calc ulation may not be valid for patients over 70 years Performed By: #### 4 1000, 76168, 50566, 03717 ####[facility] [facility] [place] [address], [facility] Glucose [Mass/Vol] 108 mg/dL High 70-100 [facility] Comment on above: Order Comment: No: D o not add to previous draw Performed By: #### 4 1000, 48181, 20830, 15592 ####[facility] [facility] [place] [address], [facility] Potassium [Moles/Vol] 3.7 mmol/L Normal 3.5-5.1 [facility] Comment on above: Order Comment: No: D o not add to previous draw Performed By: #### 4 1000, 82650, 11015, 35908 ####[facility] [place] [address], [facility] Protein [Mass/Vol] 6.6 g/dL Normal 6.0-8.3 [facility] Comment on above: Order Comment: No: D o not add to previous draw Performed By: #### 4 1000, 13156, 36613, 96425 ####[facility] [place] [address], [facility] Sodium [Moles/Vol] 136 mmol/L Normal 136-145 [facility] Comment on above: Order Comment: No: D o not add to previous draw Performed By: #### 4 1000, 63771, 91285, 29665 ####[facility] [place] [address], [facility] Urea nitrogen [Mass/Vol] 16 mg/dL Normal 7-25 [facility] Comment on above: Order Comment: No: D o not add to previous draw Performed By: #### 4 1000, 81120, 35973, 07182 ####[facility] [place] [address], [facility] MAGNESIUM BLOODon 05-18-2021 Magnesium [Mass/Vol] 1.9 mg/dL Normal 1.9-2.7 [facility] Comment on above: Order Comment: No: D o not add to previous draw Performed By: #### 4 1000, 39629, 93492, 12462 ####[facility] [place] [address], [facility] PHOSPHORUS BLOODon Phosphate [Mass/Vol] 4.2 mg/dL Normal 2.5-5.0 [facility] Comment on above: Order Comment: No: D o not add to previous draw Performed By: #### 4 1000, 97516, 90497, 11611 ####[facility] [place] [address], [place] POC GLUCOSE LABon 05-18-2021 Glucose [Mass/Vol] 152 mg/dL High 70-100 [facility] Comment on above: Performed By: #### 8 5499 ####[facility] [place] [address], [place] Glucose [Mass/Vol] 140 mg/dL High 70-100 The [facility] Comment on above: Performed By: #### 8 5499 ####[facility] [facility] [place] [address], [facility] Glucose [Mass/Vol] 202 mg/dL High 70-100 [facility] Comment on above: Performed By: #### 8 5499 ####[facility] [facility] [place] [address], [facility] Glucose [Mass/Vol] 121 mg/dL High 70-100 [facility] Comment on above: Performed By: #### 8 5499 ####[facility] [facility].[address] PORTABLE CHEST 1 VIEWon 04-25 PORTABLE CHEST 1 VIEW Normal [facility] Comment on above: Order Comment: EValu ate for Effusion VANCOMYCIN TIMEDon VANCOMYCIN TIMED 10.2 mcg/mL Normal [facility] Comment on above: Performed By: #### 4 1000, 08567, 21999, 80308 ####[facility] [facility].[address] CBC W/DIFFon 05-17-2021 ABS IMM GRANS 0.0 10*3/uL Normal 0.0-0.2 The [facility] Comment on above: Order Comment: No: D o not add to previous draw Performed By: #### 5 0103 ####[facility] [facility].[address] ABS NEUTROPHILS 3.6 10*3/uL Normal 1.6-7.6 [facility] Comment on above: Order Comment: No: D o not add to previous draw Performed By: #### 5 0103 ####[facility] [facility] [place] [address], [facility] Basophils (Bld) [#/Vol] 0.1 10*3/uL Normal 0.0-0.2 [facility] Comment on above: Order Comment: No: D o not add to previous draw Performed By: #### 5 0103 ####[facility] [facility] [place] [address], [facility] Basophils/100 WBC (Bld) 0.9 % Normal 0.0-1.0 [facility] Comment on above: Order Comment: No: D o not add to previous draw Performed By: #### 5 0103 ####[facility] [place] [address], [facility] Eosinophils (Bld) [#/Vol] 0.1 10*3/uL Normal 0.0-0.5 [facility] Comment on above: Order Comment: No: D o not add to previous draw Performed By: #### 5 0103 ####[facility] [place] [address], [facility] Eosinophils/100 WBC (Bld) 0.9 % Normal 0.0-6.0 [facility] Comment on above: Order Comment: No: D o not add to previous draw Performed By: #### 5 0103 ####[facility] Erythrocyte distribution width (RBC) [Ratio] 14.6 % Normal 11.5-15.0 [facility] Comment on above: Order Comment: No: D o not add to previous draw Performed By: #### 5 0103 ####[facility] [facility] [place] [address], [facility] Hematocrit (Bld) [Volume fraction] 27.7 % Low 39.0-50.0 [facility] Comment on above: Order Comment: No: D o not add to previous draw Performed By: #### 5 0103 ####[facility] [place] [address], [facility] Hemoglobin (Bld) [Mass/Vol] 8.5 g/dL Low 13.0-17.0 [facility] Comment on above: Order Comment: No: D o not add to previous draw Performed By: #### 5 0103 ####[facility] IMMATURE GRANS 0.5 % Normal 0.0-1.0 [facility] Comment on above: Order Comment: No: D o not add to previous draw Performed By: #### 5 0103 ####[facility] [place] [address] Lymphocytes (Bld) [#/Vol] 1.4 10*3/uL Normal 1.2-4.0 [facility] Comment on above: Order Comment: No: D o not add to previous draw Performed By: #### 5 0103 ####[address] Lymphocytes/100 WBC (Bld) 23.3 % Normal 20.0-45.0 [facility] Comment on above: Order Comment: No: D o not add to previous draw Performed By: #### 5 0103 ####[address] MCH (RBC) [Entitic mass] 28.4 pg Normal 27.0-33.0 [facility] Comment on above: Order Comment: No: D o not add to previous draw Performed By: #### 5 0103 ####[facility] [place] [address] MCHC (RBC) [Mass/Vol] 30.7 g/dL Low 32.0-35.0 [facility] Comment on above: Order Comment: No: D o not add to previous draw Performed By: #### 5 0103 ####[facility] [place] [address], [facility] MCV (RBC) [Entitic vol] 92.6 fL Normal 82.0-98.0 [facility] Comment on above: Order Comment: No: D o not add to previous draw Performed By: #### 5 0103 ####[facility] [place] [address], [facility] Monocytes (Bld) [#/Vol] 0.7 10*3/uL Normal 0.1-1.0 [facility] Comment on above: Order Comment: No: D o not add to previous draw Performed By: #### 5 0103 ####[facility] [place] [address], [facility] MONOS 11.7 % Normal 5.0-12.0 [facility] Comment on above: Order Comment: No: D o not add to previous draw Performed By: #### 5 0103 ####[facility] [facility] [place] [address], [facility] Neutrophils/100 WBC (Bld) 62.7 % Normal 40.0-72.0 [facility] Comment on above: Order Comment: No: D o not add to previous draw Performed By: #### 5 0103 ####[facility] [facility] [place] [address], [facility] Nucleated RBC/100 WBC (Bld) [Ratio] 0 % Normal 0-0 [facility] Comment on above: Order Comment: No: D o not add to previous draw Performed By: #### 5 0103 ####[facility] [facility] [place] [address], [facility] PLAT CNT 325 10*3/uL Normal 150-400 [facility] Comment on above: Order Comment: No: D o not add to previous draw Performed By: #### 5 0103 ####[facility] [facility] [place] [address], [facility] RBC (Bld) [#/Vol] 2.99 10*6/uL Low 4.20-5.70 [facility] Comment on above: Order Comment: No: D o not add to previous draw Performed By: #### 5 0103 ####[facility] [facility] [place] [address], [facility] WBC (Bld) [#/Vol] 5.79 10*3/uL Normal 4.00-10.60 [facility] Comment on above: Order Comment: No: D o not add to previous draw Performed By: #### 5 0103 ####[facility] [place] [address], [facility] COMP METABOLIC PANELon 05-17 Albumin [Mass/Vol] 2.8 g/dL Low 3.5-5.7 [facility] Comment on above: Order Comment: No: D o not add to previous draw Performed By: #### 4 1000, 59355, 45257 ####[facility] [facility] [place] [address], [facility] ALKALINE PHOSPH 55 IU/L Normal 34-104 [facility] Comment on above: Order Comment: No: D o not add to previous draw Performed By: #### 4 1000, 82187, 14525 ####[facility] [facility] [place] [address], [facility] ALT [Catalytic activity/Vol] 7 U/L Normal 7-52 [facility] Comment on above: Order Comment: No: D o not add to previous draw Performed By: #### 4 1000, 01537, 31099 ####[facility] [place] [address], [facility] AST [Catalytic activity/Vol] 11 U/L Low 13-39 [facility] Comment on above: Order Comment: No: D o not add to previous draw Performed By: #### 4 1000, 18244, 58650 ####[facility] [place] [address], [facility] Bilirubin [Mass/Vol] 0.6 mg/dL Normal 0.3-1.0 [facility] Comment on above: Order Comment: No: D o not add to previous draw Performed By: #### 4 1000, 51786, 23198 ####[facility] [place] [address], [facility] Calcium [Mass/Vol] 8.2 mg/dL Low 8.6-10.3 [facility] Comment on above: Order Comment: No: D o not add to previous draw Performed By: #### 4 1000, 76467, 41863 ####[facility] [place] [address], [place] Chloride [Moles/Vol] 102 mmol/L Normal 98-107 [facility] Comment on above: Order Comment: No: D o not add to previous draw Performed By: #### 4 1000, 02192, 63047 ####[facility] [place] [address], [facility] CO2 [Moles/Vol] 31 mmol/L Normal 21-31 [facility] Comment on above: Order Comment: No: D o not add to previous draw Performed By: #### 4 1000, 62709, 97354 ####[facility] [place] [address], [facility] Creatinine [Mass/Vol] 1.19 mg/dL Normal 0.70-1.30 [facility] Comment on above: Order Comment: No: D o not add to previous draw Performed By: #### 4 1000, 09423, 80088 ####[facility] [id number], [facility] eGFR- non- 59 ml/min/1.73sq m Abnormal >60 [facility] Comment on above: Order Comment: No: D o not add to previous draw Result Comment: Calc ulation may not be valid for patients over 70 years Performed By: #### 4 1000, 47214, 43100 ####[facility] [place] [address], [facility] GFR/1.73 sq M.predicted among blacks MDRD (S/P/Bld) [Vol rate/Area] mL/min/{1.73_m2} Normal >60 [facility] Comment on above: Order Comment: No: D o not add to previous draw Result Comment: Calc ulation may not be valid for patients over 70 years Performed By: #### 4 1000, 09452, 59044 ####[facility] [place] [address], [place] Glucose [Mass/Vol] 99 mg/dL Normal 70-100 [facility] Comment on above: Order Comment: No: D o not add to previous draw Performed By: #### 4 1000, 79844, 86689 ####[facility] [facility] [place] [address], [place] Potassium [Moles/Vol] 3.7 mmol/L Normal 3.5-5.1 [facility] Comment on above: Order Comment: No: D o not add to previous draw Performed By: #### 4 1000, 79420, 87138 ####[facility] [facility] [place] [address], [facility] Protein [Mass/Vol] 6.6 g/dL Normal 6.0-8.3 [facility] Comment on above: Order Comment: No: D o not add to previous draw Performed By: #### 4 1000, 64282, 44318 ####[facility] [place] [address], [place] Sodium [Moles/Vol] 138 mmol/L Normal 136-145 [facility] Comment on above: Order Comment: No: D o not add to previous draw Performed By: #### 4 1000, 85329, 02018 ####[facility] [place] [address], [place] Urea nitrogen [Mass/Vol] 16 mg/dL Normal 7-25 [facility] Comment on above: Order Comment: No: D o not add to previous draw Performed By: #### 4 1000, 16779, 45827 ####[facility] [place] [address], [place] MAGNESIUM BLOODon 05-17-2021 Magnesium [Mass/Vol] 2.0 mg/dL Normal 1.9-2.7 [facility] Comment on above: Order Comment: No: D o not add to previous draw Performed By: #### 4 1000, 99421, 18361 ####[facility] [place] [address], [place] PHOSPHORUS BLOODon Phosphate [Mass/Vol] 4.6 mg/dL Normal 2.5-5.0 [facility] Comment on above: Order Comment: No: D o not add to previous draw Performed By: #### 4 1000, 30158, 90139 ####[facility] [place] [address], [place] POC GLUCOSE LABon 05-17-2021 Glucose [Mass/Vol] 139 mg/dL High 70-100 [facility] Comment on above: Performed By: #### 8 5499 ####[facility] [place] [address], [place] Glucose [Mass/Vol] 100 mg/dL Normal 70-100 [facility] Comment on above: Performed By: #### 8 5499 ####[facility] [place] [address], [place] Glucose [Mass/Vol] 122 mg/dL High 70-100 [facility] Comment on above: Performed By: #### 8 5499 ####[facility] [place] [address], [place] Glucose [Mass/Vol] 107 mg/dL High 70-100 [facility] Comment on above: Performed By: #### 8 5499 ####[facility] PORTABLE CHEST 1 VIEWon 04-25 PORTABLE CHEST 1 VIEW Normal [facility] Comment on above: Order Comment: evalu ate for Atelectasis *ANAEROBIC CULTUREon 021 *ANAEROBIC CULTURE Clinical Report: (D) Specimen/Source: TISSUE/INTRAOP SPEC Collected: 05/16/2021 10:48 Status: Final Last Updated: 05/21/2021 08:50 (1) STERNAL TISSUE ISO (Final) No Anaerobes Isolated Day 5 Normal [facility] Comment on above: Order Comment: BRANDT AL TISSUE Performed By: #### 3 0312 ####[facility] *ANAEROBIC CULTURE Clinical Report: (D) Specimen/Source: SWAB/INTRAOP SPEC Collected: 05/16/2021 10:45 Status: Final Last Updated: 05/21/2021 08:50 (1) STERNAL WOUND ISO (Final) No Anaerobes Isolated Day 5 Normal [facility] Comment on above: Order Comment: BRANDT AL WOUND Performed By: #### 3 0312 ####[facility] *TISSUE CULTUREon 05-16-2021 *TISSUE CULTURE Normal [facility] Comment on above: Order Comment: BRANDT AL TISSUE Performed By: #### 3 0338 ####[facility] [place], [place] [address] [place] [address] *WOUND CULTUREon 05-16-2021 *WOUND CULTURE Normal [facility] Comment on above: Order Comment: BRANDT AL WOUND Performed By: #### 3 0343 ####[facility] [place], [place] [id number] [place] [address] APTTon 05-16-2021 aPTT Coag (Bld) [Time] 32.6 s Normal 25.0-35.0 [facility] Comment on above: Order Comment: [...] THIS PURPOSE. Performed By: #### 5 7307, 54015 ####[facility] [place] [address], [facility] BASIC METABOLIC PANELon 04-25 Calcium [Mass/Vol] 8.5 mg/dL Low 8.6-10.3 [facility] Comment on above: Order Comment: No: D o not add to previous draw Performed By: #### 4 1000, 86507, 18021 ####[facility] [place] [address], [facility] Chloride [Moles/Vol] 101 mmol/L Normal 98-107 [facility] Comment on above: Order Comment: No: D o not add to previous draw Performed By: #### 4 1000, 50228, 73643 ####[facility] [place] [address], [place] CO2 [Moles/Vol] 31 mmol/L Normal 21-31 [facility] Comment on above: Order Comment: No: D o not add to previous draw Performed By: #### 4 1000, 67849, 52279 ####[facility] [place] [address], [place] Creatinine [Mass/Vol] 0.66 mg/dL Low 0.70-1.30 [facility] Comment on above: Order Comment: No: D o not add to previous draw Performed By: #### 4 1000, 30187, 82827 ####[facility] [id number], [place] GFR/1.73 sq M.predicted among blacks MDRD (S/P/Bld) [Vol rate/Area] mL/min/{1.73_m2} Normal >60 [facility] Comment on above: Order Comment: No: D o not add to previous draw Result Comment: Calc ulation may not be valid for patients over 70 years Performed By: #### 4 1000, 57220, 00169 ####[facility] [place] [address], [facility] GFR/1.73 sq M.predicted among non-blacks MDRD (S/P/Bld) [Vol rate/Area] mL/min/{1.73_m2} Normal >60 [facility] Comment on above: Order Comment: No: D o not add to previous draw Result Comment: Calc ulation may not be valid for patients over 70 years Performed By: #### 4 1000, 22242, 85295 ####[facility] [place] [address], [facility] Glucose [Mass/Vol] 117 mg/dL High 70-100 [facility] Comment on above: Order Comment: No: D o not add to previous draw Performed By: #### 4 1000, 70549, 06688 ####[facility] [place] [address], [place] Potassium [Moles/Vol] 4.1 mmol/L Normal 3.5-5.1 [facility] Comment on above: Order Comment: No: D o not add to previous draw Performed By: #### 4 1000, 61059, 18524 ####[facility] [place] [address], [place] Sodium [Moles/Vol] 136 mmol/L Normal 136-145 [facility] Comment on above: Order Comment: No: D o not add to previous draw Performed By: #### 4 1000, 05265, 23423 ####[facility] [place] [address], [place] Urea nitrogen [Mass/Vol] 11 mg/dL Normal 7-25 [facility] Comment on above: Order Comment: No: D o not add to previous draw Performed By: #### 4 1000, 17295, 28053 ####[facility] [facility].[address] CBC COMPLETE BLOOD COUNTon 0 05-16-2021 Erythrocyte distribution width (RBC) [Ratio] 14.5 % Normal 11.5-15.0 [facility] Comment on above: Order Comment: No: D o not add to previous draw Performed By: #### 5 0608 ####[facility] Hematocrit (Bld) [Volume fraction] 30.5 % Low 39.0-50.0 [facility] Comment on above: Order Comment: No: D o not add to previous draw Performed By: #### 5 0608 ####[facility] Hemoglobin (Bld) [Mass/Vol] 9.5 g/dL Low 13.0-17.0 [facility] Comment on above: Order Comment: No: D o not add to previous draw Performed By: #### 5 0608 ####[facility] [facility].[address] MCH (RBC) [Entitic mass] 28.5 pg Normal 27.0-33.0 [facility] Comment on above: Order Comment: No: D o not add to previous draw Performed By: #### 5 0608 ####[facility] [facility] [place] [address], [facility] MCHC (RBC) [Mass/Vol] 31.1 g/dL Low 32.0-35.0 [facility] Comment on above: Order Comment: No: D o not add to previous draw Performed By: #### 5 0608 ####[facility] [place] [address], [facility] MCV (RBC) [Entitic vol] 91.6 fL Normal 82.0-98.0 [facility] Comment on above: Order Comment: No: D o not add to previous draw Performed By: #### 5 0608 ####[place] [address], [facility] Nucleated RBC/100 WBC (Bld) [Ratio] 0 % Normal 0-0 [facility] Comment on above: Order Comment: No: D o not add to previous draw Performed By: #### 5 0608 ####[place] [address], [facility] PLAT CNT 353 10*3/uL Normal 150-400 [facility] Comment on above: Order Comment: No: D o not add to previous draw Performed By: #### 5 0608 ####[address] RBC (Bld) [#/Vol] 3.33 10*6/uL Low 4.20-5.70 [facility] Comment on above: Order Comment: No: D o not add to previous draw Performed By: #### 5 0608 ####[place] [address], [facility] WBC (Bld) [#/Vol] 5.98 10*3/uL Normal 4.00-10.60 [facility] Comment on above: Order Comment: No: D o not add to previous draw Performed By: #### 5 0608 ####[address] LACTATE BLOODon 05-16-2021 Lactate [Moles/Vol] 0.6 mmol/L Normal .5-2.2 [facility] Comment on above: Order Comment: No: D o not add to previous draw Performed By: #### 1 0054 ####[facility] [facility] [place] [address], [facility] Lactate [Moles/Vol] 0.8 mmol/L Normal .5-2.2 [facility] Comment on above: Order Comment: No: D o not add to previous draw Performed By: #### 1 0054 ####[facility] [place] [address], [facility] MAGNESIUM BLOODon 05-16-2021 Magnesium [Mass/Vol] 1.9 mg/dL Normal 1.9-2.7 [facility] Comment on above: Order Comment: No: D o not add to previous draw Performed By: #### 4 1000, 41240, 04179 ####[facility] [facility] [place] [address], [facility] OSMOLALITY BLOODon 1 Osmolality [Osmolality] 292 mosm/kg Normal 285-305 [facility] Comment on above: Order Comment: No: D o not add to previous draw Performed By: #### 3 9301, 93244 ####[facility] [facility] [place] [address], [facility] Osmolality [Osmolality] 297 mosm/kg Normal 285-305 [facility] Comment on above: Order Comment: No: D o not add to previous draw Performed By: #### 3 9301, 10812 ####[facility] [facility] [place] [address], [facility] PHOSPHORUS BLOODon 1 Phosphate [Mass/Vol] 4.3 mg/dL Normal 2.5-5.0 [facility] Comment on above: Order Comment: No: D o not add to previous draw Performed By: #### 4 1000, 36083, 47524 ####[facility] [place] [address], [facility] POC GLUCOSE LABon 05-16-2021 Glucose [Mass/Vol] 121 mg/dL High 70-100 [facility] Comment on above: Performed By: #### 8 5499 ####[facility] [place] [address], [facility] Glucose [Mass/Vol] 126 mg/dL High 70-100 [facility] Comment on above: Performed By: #### 8 5499 ####[facility] [facility].[place] [id number], [facility] Glucose [Mass/Vol] 133 mg/dL High 70-100 [facility] Comment on above: Performed By: #### 8 5499 ####[facility] [place] [address], [facility] Glucose [Mass/Vol] 131 mg/dL High 70-100 [facility] Comment on above: Performed By: #### 8 5499 ####[facility] PORTABLE CHEST 1 VIEWon 04-25 PORTABLE CHEST 1 VIEW Normal [facility] Comment on above: Order Comment: Check NG Tube Position PORTABLE CHEST 1 VIEW Normal [facility] Comment on above: Order Comment: Evalu ate Atelectasis PROTHROMBIN TIMEon INR Coag (PPP) [Relative time] 1.15 {INR} Normal 0.91-1.16 [facility] Comment on above: Order Comment: No: [...] OF ACTION, CLINICALEFFECTIVENESS, AND OPTIMAL THERAPEUTIC RANGE. [id number];108:[id number]. Performed By: #### 5 7307, 68870 ####[facility] [facility].[address] PT Coag (PPP) [Time] 14.7 s Normal 12.3-14.8 [facility] Comment on above: Order Comment: No: D o not add to previous draw Result Comment: ALL RESULTS MUST BE INTERPRETED WITH RESPECT TO BLOOD DRAWING ARTIFACTOR DILUTION ERROR OF ANTICOAGULANT AT THE TIME OF SAMPLING. Performed By: #### 5 7307, 70634 ####[facility] [facility].[address] TRIGLYCERIDES BLOODon 2020 Triglyceride [Mass/Vol] 95 mg/dL Normal 40-149 [facility] Comment on above: Order Comment: No: D o not add to previous draw Result Comment: TRIG LYCERIDE REFERENCE RANGE:20 YEARS AND OLDER CARDIOVASCULAR RISKLESS THAN 150 mg/dl LOW [id number] TO 199 mg/dl BORDERLINE [id number] mg/dl AND GREATER HIGH RISK Performed By: #### 3 9301, 32172 ####[facility] [facility].[address] Triglyceride [Mass/Vol] 98 mg/dL Normal 40-149 [facility] Comment on above: Order Comment: No: D o not add to previous draw Result Comment: TRIG LYCERIDE REFERENCE RANGE:20 YEARS AND OLDER CARDIOVASCULAR RISKLESS THAN 150 mg/dl LOW [id number] TO 199 mg/dl BORDERLINE [id number] mg/dl AND GREATER HIGH RISK Performed By: #### 3 9301, 24651 ####[facility] *BLOOD CULTUREon 05-15-2021 *BLOOD CULTURE Clinical Report: (D) Specimen: BLOOD CULTURE Collected: 05/15/2021 11:35 Status: Final Last Updated: 05/20/2021 14:11 (1) Prior to antibiotic administration CULT RES (Final) No Growth Day 5 Normal [facility] Comment on above: Order Comment: Prior to antibiotic administration Performed By: #### 3 0313 ####[address] APTTon 05-15-2021 aPTT Coag (Bld) [Time] 30.4 s Normal 25.0-35.0 [facility] Comment on above: Result Comment: ALL [...] THIS PURPOSE. Performed By: #### 5 7307, 95877 ####[address] ARTERIAL BLOOD GAS W/COOXon 05-15-2021 BASE EXCESS 2 mmol/L Normal -2-3 [facility] Comment on above: Order Comment: RESUL TS CHECKED AND CALLED. ACCURATELY READ BACK BY RADHIKA ED CHARGE. Performed By: #### 4 0055 ####[place] [address] [address] COHB 2.3 % High 0.0-1.5 [facility] Comment on above: Order Comment: RESUL TS CHECKED AND CALLED. ACCURATELY READ BACK BY RADHIKA ED CHARGE. Performed By: #### 4 0055 ####[place] [address] [address] DELIVERY SYSTEMS [place] Normal [facility] Comment on above: Order Comment: RESUL TS CHECKED AND CALLED. ACCURATELY READ BACK BY RADHIKA ED CHARGE. Performed By: #### 4 0055 ####[facility] [facility] [place] [place] [address], [facility] HCO3 (Bld) [Moles/Vol] 29 mmol/L High 21-28 [facility] Comment on above: Order Comment: RESUL TS CHECKED AND CALLED. ACCURATELY READ BACK BY RADHIKA ED CHARGE. Performed By: #### 4 0055 ####[facility] [facility] [place] [place] [address], [facility] LPM 5.0 LPM Normal [facility] Comment on above: Order Comment: RESUL TS CHECKED AND CALLED. ACCURATELY READ BACK BY RADHIKA ED CHARGE. Performed By: #### 4 5 ####[facility] [facility] [place] [address], [facility] METHB 1.1 % Normal 0.0-1.5 [facility] Comment on above: Order Comment: RESUL TS CHECKED AND CALLED. ACCURATELY READ BACK BY RADHIKA ED CHARGE. Performed By: #### 4 0055 ####[facility] [facility] [place] [address], [facility] MODALITY NC Normal [facility] Comment on above: Order Comment: RESUL TS CHECKED AND CALLED. ACCURATELY READ BACK BY RADHIKA ED CHARGE. Performed By: #### 4 0055 ####[facility] [facility].[address] Oxygen (Bld) [Partial pressure] 83 mm[Hg] Normal 83-108 [facility] Comment on above: Order Comment: RESUL TS CHECKED AND CALLED. ACCURATELY READ BACK BY [facility] CHARGE. Performed By: #### 4 0055 ####[facility] [facility].[address] Oxygen saturation in Blood 94.8 % Normal 94.0-97.0 [facility] Comment on above: Order Comment: RESUL TS CHECKED AND CALLED. ACCURATELY READ BACK BY [facility] CHARGE. Performed By: #### 4 0055 ####[facility] [facility] [place] [address], [facility] PCO2 58 mmHg Critically high 35-45 The [facility] Comment on above: Order Comment: RESUL TS CHECKED AND CALLED. ACCURATELY READ BACK BY [facility] CHARGE. Performed By: #### 4 0055 ####[facility] [facility] [place] [address], [facility] pH (Bld) 7.31 [pH] Low 7.35-7.45 The [facility] Comment on above: Order Comment: RESUL TS CHECKED AND CALLED. ACCURATELY READ BACK BY [facility] ED CHARGE. Performed By: #### 4 0055 ####[place] [address] [facility].[address] THB 10.2 g/dL Low 12.0-16.3 [facility] Comment on above: Order Comment: RESUL TS CHECKED AND CALLED. ACCURATELY READ BACK BY [facility] ED CHARGE. Performed By: #### 4 0055 ####[facility] [facility].[address] BNP (B-TYPE NATRIURETIC PEPT MAX)on 05-15-2021 Natriuretic peptide B (d) [Mass/Vol] 136 pg/mL High 0-100 The [facility] Comment on above: Order Comment: Yes: Add to Previous draw if able Result Comment: Give n the appropriate clinical setting a BNP result of >100 pg/mLindicates congestive heart failure. Performed By: #### 8 5123 ####[facility] [facility] [place] [address], [facility] CBC W/DIFFon 05-15-2021 ABS IMM GRANS 0.0 10*3/uL Normal 0.0-0.2 The [facility] Comment on above: Performed By: #### 5 0103 ####[facility] [facility] [place] [address], [facility] ABS NEUTROPHILS 5.0 10*3/uL Normal 1.6-7.6 The [facility] Comment on above: Performed By: #### 5 0103 ####[facility] [place] [address], [facility] Basophils (Bld) [#/Vol] 0.0 10*3/uL Normal 0.0-0.2 [facility] Comment on above: Performed By: #### 5 0103 ####[facility] [place] [address], [facility] Basophils/100 WBC (Bld) 0.6 % Normal 0.0-1.0 [facility] Comment on above: Performed By: #### 5 0103 ####[facility] [facility] [place] [address], [facility] Eosinophils (Bld) [#/Vol] 0.1 10*3/uL Normal 0.0-0.5 [facility] Comment on above: Performed By: #### 5 0103 ####[facility] [facility] [place] [address], [facility] Eosinophils/100 WBC (Bld) 0.7 % Normal 0.0-6.0 [facility] Comment on above: Performed By: #### 5 0103 ####[facility] [facility] [place] [address], [facility] Erythrocyte distribution width (RBC) [Ratio] 14.5 % Normal 11.5-15.0 [facility] Comment on above: Performed By: #### 5 3 ####[facility] [facility] [place] [place] [address], [facility] Hematocrit (Bld) [Volume fraction] 32.5 % Low 39.0-50.0 [facility] Comment on above: Performed By: #### 5 3 ####[facility] [place] [address], [facility] Hemoglobin (Bld) [Mass/Vol] 10.3 g/dL Low 13.0-17.0 [facility] Comment on above: Performed By: #### 5 0103 ####[facility] IMMATURE GRANS 0.6 % Normal 0.0-1.0 The [facility] Comment on above: Performed By: #### 5 0103 ####[facility] Lymphocytes (Bld) [#/Vol] 1.1 10*3/uL Low 1.2-4.0 [facility] Comment on above: Performed By: #### 5 0103 ####[address] Lymphocytes/100 WBC (Bld) 15.9 % Low 20.0-45.0 [facility] Comment on above: Performed By: #### 5 0103 ####[facility] MCH (RBC) [Entitic mass] 28.8 pg Normal 27.0-33.0 [facility] Comment on above: Performed By: #### 5 0103 ####[place] [address] [address] MCHC (RBC) [Mass/Vol] 31.7 g/dL Low 32.0-35.0 [facility] Comment on above: Performed By: #### 5 0103 ####[facility] [place] [address], [facility] MCV (RBC) [Entitic vol] 90.8 fL Normal 82.0-98.0 [facility] Comment on above: Performed By: #### 5 0103 ####[place] [address], [facility] Monocytes (Bld) [#/Vol] 0.8 10*3/uL Normal 0.1-1.0 [facility] Comment on above: Performed By: #### 5 0103 ####[facility] [facility] [place] [address], [facility] MONOS 11.2 % Normal 5.0-12.0 [facility] Comment on above: Performed By: #### 5 3 ####[facility] [facility] [place] [address], [facility] Neutrophils/100 WBC (Bld) 71.0 % Normal 40.0-72.0 [facility] Comment on above: Performed By: #### 5 102 ####[facility] [facility] [place] [address], [facility] Nucleated RBC/100 WBC (Bld) [Ratio] 0 % Normal 0-0 [facility] Comment on above: Performed By: #### 5 102 ####[facility] [facility] [place] [address], [facility] PLAT CNT 376 10*3/uL Normal 150-400 The [facility] Comment on above: Performed By: #### 5 102 ####[facility] [place] [address].[place] [address], [facility] RBC (Bld) [#/Vol] 3.58 10*6/uL Low 4.20-5.70 [facility] Comment on above: Performed By: #### 5 102 ####[facility] [facility] [place] [address], [facility] WBC (Bld) [#/Vol] 7.03 10*3/uL Normal 4.00-10.60 [facility] Comment on above: Performed By: #### 102 ####[facility] [place] [address].[place] [address], [facility] COMP METABOLIC PANELon 05-15 Albumin [Mass/Vol] 3.2 g/dL Low 3.5-5.7 The [facility] Comment on above: Performed By: #### 4 1000, 51675, 31664, 75764 ####[facility] [place] [address], [facility] ALKALINE PHOSPH 84 IU/L Normal 34-104 The [facility] Comment on above: Performed By: #### 4 1000, 18424, 89069, 23158 ####[facility] [place] [address], [facility] ALT [Catalytic activity/Vol] 11 U/L Normal 7-52 [facility] Comment on above: Performed By: #### 4 1000, 38725, 41817, 37104 ####[facility] [place] [address], [facility] AST [Catalytic activity/Vol] 12 U/L Low 13-39 [facility] Comment on above: Performed By: #### 4 1000, 61556, 27816, 34681 ####[facility] [id number], [facility] Bilirubin [Mass/Vol] 0.9 mg/dL Normal 0.3-1.0 [facility] Comment on above: Performed By: #### 4 1000, 38979, 90982, 31523 ####[facility] [id number], [facility] Calcium [Mass/Vol] 8.3 mg/dL Low 8.6-10.3 [facility] Comment on above: Performed By: #### 4 1000, 33835, 77437, 17605 ####[facility] [address], [facility] Chloride [Moles/Vol] 101 mmol/L Normal 98-107 [facility] Comment on above: Performed By: #### 4 1000, 09432, 44428, 60434 ####[facility] [place] [address], [place] CO2 [Moles/Vol] 30 mmol/L Normal 21-31 [facility] Comment on above: Performed By: #### 4 1000, 78697, 00549, 75096 ####[facility] [place] [address], [place] Creatinine [Mass/Vol] 0.92 mg/dL Normal 0.70-1.30 [facility] Comment on above: Performed By: #### 4 1000, 00993, 23613, 42558 ####[facility] [place] [address], [place] GFR/1.73 sq M.predicted among blacks MDRD (S/P/Bld) [Vol rate/Area] mL/min/{1.73_m2} Normal >60 [facility] Comment on above: Result Comment: Calc ulation may not be valid for patients over 70 years Performed By: #### 4 1000, 93521, 27063, 97936 ####[facility] [place] [address], [place] GFR/1.73 sq M.predicted among non-blacks MDRD (S/P/Bld) [Vol rate/Area] mL/min/{1.73_m2} Normal >60 [facility] Comment on above: Result Comment: Calc ulation may not be valid for patients over 70 years Performed By: #### 4 1000, 52583, 92573, 28729 ####[facility] [place] [address], [place] Glucose [Mass/Vol] 138 mg/dL High 70-100 [facility] Comment on above: Performed By: #### 4 1000, 04774, 16371, 33241 ####[facility] [place] [address], [place] Potassium [Moles/Vol] 4.1 mmol/L Normal 3.5-5.1 [facility] Comment on above: Performed By: #### 4 1000, 21355, 32647, 28534 ####[facility] [place] [address], [facility] Protein [Mass/Vol] 7.4 g/dL Normal 6.0-8.3 [facility] Comment on above: Performed By: #### 4 1000, 58683, 50373, 66310 ####[facility] [place] [address], [facility] Sodium [Moles/Vol] 136 mmol/L Normal 136-145 [facility] Comment on above: Performed By: #### 4 1000, 70875, 92904, 45042 ####[facility] [place] [address], [facility] Urea nitrogen [Mass/Vol] 8 mg/dL Normal 7-25 [facility] Comment on above: Performed By: #### 4 1000, 42010, 49526, 22579 ####[facility] [place] [address], [facility] LACTATE BLOODon 05-15-2021 Lactate [Moles/Vol] 0.7 mmol/L Normal .5-2.2 [facility] Comment on above: Order Comment: Repea t Lactate in 4 hours Performed By: #### 1 0054 ####[facility] [place] [address], [place] MAGNESIUM BLOODon 05-15-2021 Magnesium [Mass/Vol] 2.0 mg/dL Normal 1.9-2.7 [facility] Comment on above: Performed By: #### 4 1000, 25837, 72495, 53178 ####[facility] [place] [address], [place] PHOSPHORUS BLOODon Phosphate [Mass/Vol] 6.0 mg/dL High 2.5-5.0 [facility] Comment on above: Performed By: #### 4 1000, 03010, 16962, 00052 ####[facility] [facility].[address] POC GLUCOSE LABon 05-15-2021 Glucose [Mass/Vol] 225 mg/dL High 70-100 [facility] Comment on above: Performed By: #### 8 5499 ####[facility] [facility].[address] POC SARS COV2 ANTIGEN NEGATI VEon 05-15-2021 POC SARS COV2 ANTIGEN NEG Negative Normal NEGATIVE [facility] Comment on above: Result Comment: Nega [...] of clinicalsigns and symptoms consistent with COVID-19.The [employer] COVID-19 Ag Card is a lateral flow immunoassay intended forthe qualitative detection of nucleocapsid protein antigen [id number] in direct nasal swabs from individuals within [...] Certificate ofAccreditation. Performed By: #### 3 1977 ####[facility] [facility] [place] [address], [facility] PORTABLE CHEST 1 VIEWon 04-25 PORTABLE CHEST 1 VIEW Normal [facility] Comment on above: Order Comment: Evalu ate for Infiltrates, hypoxia, infected sternotomy site PROTHROMBIN TIMEon INR Coag (PPP) [Relative time] 1.07 {INR} Normal 0.91-1.16 [facility] Comment on above: Result Comment: ACCC P RECOMMENDED INR FOR WARFARIN THERAPY CONDITION INRPROPHYLAXIS OF VENOUS THROMBOSIS 2-3(HIGH-RISK SURGERY)TREATMENT OF VENOUS THROMBOSIS 2-3TREATMENT OF PULMONARY EMBOLISM 2-3PREVENTION OF SYSTEMIC EMBOLISM: 2-3 ACUTE MYOCARDIAL INFARCTION TISSUE HEART VALVES VALVULAR HEART DISEASE ATRIAL FIBRILLATION RECURRENT SYSTEMIC EMBOLISMMECHANICAL HEART VALVE 2.5-3.5 FROM: ORAL ANTICOAGULANTS. MECHANISM OF ACTION, CLINICALEFFECTIVENESS, AND OPTIMAL THERAPEUTIC RANGE. [id number]. Performed By: #### 5 7307, 11346 ####[facility] [place] [address], [facility] PT Coag (PPP) [Time] 13.9 s Normal 12.3-14.8 [facility] Comment on above: Result Comment: ALL RESULTS MUST BE INTERPRETED WITH RESPECT TO BLOOD DRAWING ARTIFACTOR DILUTION ERROR OF ANTICOAGULANT AT THE TIME OF SAMPLING. Performed By: #### 5 7307, 48925 ####[facility] [facility] [place] [address], [facility] TROPONIN-Ion 05-15-2021 Troponin I.cardiac [Mass/Vol] 0.01 ng/mL Normal 0.00-0.04 [facility] Comment on above: Result Comment: REFE RENCE RANGES: 0.00 - 0.04 ng/ml NORMAL 0.05 - 0.50 ng/ml INDETERMINATE > 0.50 ng/ml CONSISTENT WITH AN M.I. Performed By: #### 4 1000, 50275, 42571, 32486 ####[facility] [facility] [place] [address], [facility] TYPE AND SCREENon 05-15-2021 ABO INTERPRETATION O Normal The [facility] Comment on above: Performed By: #### 6 2586 ####[facility] [facility] [place] [address], [facility] RH INTERPRETATION Positive Normal The [facility] Comment on above: Performed By: #### 6 2586 ####[facility] [facility] [place] [address], [facility] POC GLUCOSE LABon 04-15-2021 Glucose [Mass/Vol] 143 mg/dL High 70-100 [facility] Comment on above: Performed By: #### 8 5499 ####[facility] [facility] [place] [address], [facility] Glucose [Mass/Vol] 241 mg/dL High 70-100 [facility] Comment on above: Performed By: #### 8 5499 ####[facility] [facility] [place] [address], [facility] Glucose [Mass/Vol] 121 mg/dL High 70-100 [facility] Comment on above: Performed By: #### 8 5499 ####[facility] [facility] [place] [address], [facility] POC SARS COV2 ANTIGEN NEGATI VEon 04-15-2021 POC SARS COV2 ANTIGEN NEG Negative Normal NEGATIVE [facility] Comment on above: Result Comment: Nega [...] of clinicalsigns and symptoms consistent with COVID-19.The [employer] COVID-19 Ag Card is a lateral flow immunoassay intended forthe qualitative detection of nucleocapsid protein antigen [id number] in direct nasal swabs from individuals within [...] Certificate ofAccreditation. Performed By: #### 3 1977 ####[place] [address] [address] BASIC METABOLIC PANELon 08- Calcium [Mass/Vol] 8.7 mg/dL Normal 8.6-10.3 [facility] Comment on above: Order Comment: No: D o not add to previous draw Performed By: #### 0 0071, 90586 ####[place] [address] [place] [address], [facility] Chloride [Moles/Vol] 95 mmol/L Low 98-107 [facility] Comment on above: Order Comment: No: D o not add to previous draw Performed By: #### 0 0071, 21648 ####[facility] [place] [address], [facility] CO2 [Moles/Vol] 27 mmol/L Normal 21-31 The [facility] Comment on above: Order Comment: No: D o not add to previous draw Performed By: #### 0 0071, 67539 ####[place] [address] [place] [address], [facility] Creatinine [Mass/Vol] 0.80 mg/dL Normal 0.70-1.30 [facility] Comment on above: Order Comment: No: D o not add to previous draw Performed By: #### 0 0071, 85690 ####[facility] [place] [address], [facility] GFR/1.73 sq M.predicted among blacks MDRD (S/P/Bld) [Vol rate/Area] mL/min/{1.73_m2} Normal >60 [facility] Comment on above: Order Comment: No: D o not add to previous draw Result Comment: Calc ulation may not be valid for patients over 70 years Performed By: #### 0 0071, 20480 ####[facility] [place] [address], [facility] GFR/1.73 sq M.predicted among non-blacks MDRD (S/P/Bld) [Vol rate/Area] mL/min/{1.73_m2} Normal >60 [facility] Comment on above: Order Comment: No: D o not add to previous draw Result Comment: Calc ulation may not be valid for patients over 70 years Performed By: #### 0 0071, 43902 ####[facility] [facility] [place] [address], [facility] Glucose [Mass/Vol] 108 mg/dL High 70-100 The [facility] Comment on above: Order Comment: No: D o not add to previous draw Performed By: #### 0 0071, 69519 ####[facility] [place] [address], [place] Potassium [Moles/Vol] 3.6 mmol/L Normal 3.5-5.1 [facility] Comment on above: Order Comment: No: D o not add to previous draw Performed By: #### 0 0071, 46403 ####[facility] [place] [address], [place] Sodium [Moles/Vol] 132 mmol/L Low 136-145 [facility] Comment on above: Order Comment: No: D o not add to previous draw Performed By: #### 0 0071, 32268 ####[facility] [facility] [place] [address], [facility] Urea nitrogen [Mass/Vol] 38 mg/dL High 7-25 [facility] Comment on above: Order Comment: No: D o not add to previous draw Performed By: #### 0 0071, 75071 ####[facility] [facility].[address] CBC COMPLETE BLOOD COUNTon 0 04-14-2021 Erythrocyte distribution width (RBC) [Ratio] 14.1 % Normal 11.5-15.0 [facility] Comment on above: Order Comment: No: D o not add to previous draw Performed By: #### 5 0608 ####[place] [address] [facility].[address] Hematocrit (Bld) [Volume fraction] 33.5 % Low 39.0-50.0 [facility] Comment on above: Order Comment: No: D o not add to previous draw Performed By: #### 5 0608 ####[place] [address] [facility].[address] Hemoglobin (Bld) [Mass/Vol] 11.3 g/dL Low 13.0-17.0 [facility] Comment on above: Order Comment: No: D o not add to previous draw Performed By: #### 5 0608 ####[facility] [facility] [place] [address], [facility] MCH (RBC) [Entitic mass] 30.2 pg Normal 27.0-33.0 [facility] Comment on above: Order Comment: No: D o not add to previous draw Performed By: #### 5 0608 ####[facility] [facility] [place] [address], [facility] MCHC (RBC) [Mass/Vol] 33.7 g/dL Normal 32.0-35.0 [facility] Comment on above: Order Comment: No: D o not add to previous draw Performed By: #### 5 0608 ####[facility] [place] [address], [facility] MCV (RBC) [Entitic vol] 89.6 fL Normal 82.0-98.0 [facility] Comment on above: Order Comment: No: D o not add to previous draw Performed By: #### 5 0608 ####[facility] [facility].[address] Nucleated RBC/100 WBC (Bld) [Ratio] 0 % Normal 0-0 [facility] Comment on above: Order Comment: No: D o not add to previous draw Performed By: #### 5 0608 ####[facility] [facility] [place] [address], [facility] PLAT CNT 314 10*3/uL Normal 150-400 The [facility] Comment on above: Order Comment: No: D o not add to previous draw Performed By: #### 5 0608 ####[place] [address] [facility] [place] [address], [facility] RBC (Bld) [#/Vol] 3.74 10*6/uL Low 4.20-5.70 [facility] Comment on above: Order Comment: No: D o not add to previous draw Performed By: #### 5 0608 ####[facility] [facility] [place] [address], [facility] WBC (Bld) [#/Vol] 10.84 10*3/uL High 4.00-10.60 [facility] Comment on above: Order Comment: No: D o not add to previous draw Performed By: #### 5 0608 ####[facility] [facility] [place] [address], [place] MAGNESIUM BLOODon 04-14-2021 Magnesium [Mass/Vol] 1.9 mg/dL Normal 1.9-2.7 [facility] Comment on above: Order Comment: No: D o not add to previous draw Performed By: #### 0 0071, 23881 ####[facility] [place] [address], [place] POC GLUCOSE LABon 04-14-2021 Glucose [Mass/Vol] 168 mg/dL High 70-100 [facility] Comment on above: Performed By: #### 8 5499 ####[facility] [place] [address], [place] Glucose [Mass/Vol] 133 mg/dL High 70-100 [facility] Comment on above: Performed By: #### 8 5499 ####[facility] [place] [address], [place] Glucose [Mass/Vol] 167 mg/dL High 70-100 [facility] Comment on above: Performed By: #### 8 5499 ####[facility] [place] [address], [place] Glucose [Mass/Vol] 146 mg/dL High 70-100 [facility] Comment on above: Performed By: #### 8 5499 ####[facility] [place] [address], [place] Glucose [Mass/Vol] 152 mg/dL High 70-100 [facility] Comment on above: Performed By: #### 8 5499 ####[facility] [place] [address], [place] PORTABLE CHEST 1 VIEWon 03-25 PORTABLE CHEST 1 VIEW Normal [facility] Comment on above: Order Comment: evalu ate Atelectasis BASIC METABOLIC PANELon 03-25 Calcium [Mass/Vol] 9.1 mg/dL Normal 8.6-10.3 [facility] Comment on above: Order Comment: No: D o not add to previous draw Performed By: #### 1 [id number], [id number] ####[facility] [place] [address], [facility] Chloride [Moles/Vol] 94 mmol/L Low 98-107 [facility] Comment on above: Order Comment: No: D o not add to previous draw Performed By: #### 1 0, [id number] ####[facility], [place] [address], [facility] CO2 [Moles/Vol] 27 mmol/L Normal 21-31 [facility] Comment on above: Order Comment: No: D o not add to previous draw Performed By: #### 1 69, 33050 ####[facility] [facility] [place] [address], [facility] Creatinine [Mass/Vol] 0.87 mg/dL Normal 0.70-1.30 [facility] Comment on above: Order Comment: No: D o not add to previous draw Performed By: #### 1 69, 78433 ####[facility] [facility] [place] [address], [facility] GFR/1.73 sq M.predicted among blacks MDRD (S/P/Bld) [Vol rate/Area] mL/min/{1.73_m2} Normal >60 [facility] Comment on above: Order Comment: No: D o not add to previous draw Result Comment: Calc ulation may not be valid for patients over 70 years Performed By: #### 1 69, 32157 ####[facility] [facility] [place] [address], [facility] GFR/1.73 sq M.predicted among non-blacks MDRD (S/P/Bld) [Vol rate/Area] mL/min/{1.73_m2} Normal >60 [facility] Comment on above: Order Comment: No: D o not add to previous draw Result Comment: Calc ulation may not be valid for patients over 70 years Performed By: #### 1 69, 07310 ####[facility] [facility] [place] [address], [facility] Glucose [Mass/Vol] 125 mg/dL High 70-100 [facility] Comment on above: Order Comment: No: D o not add to previous draw Performed By: #### 1 69, 46846 ####[facility] [facility] [place] [address], [facility] Potassium [Moles/Vol] 3.2 mmol/L Low 3.5-5.1 [facility] Comment on above: Order Comment: No: D o not add to previous draw Performed By: #### 1 69, 68163 ####[facility] [facility] [place] [address], [facility] Sodium [Moles/Vol] 132 mmol/L Low 136-145 [facility] Comment on above: Order Comment: No: D o not add to previous draw Performed By: #### 1 69, 78490 ####[facility] [facility] [place] [address], [facility] Urea nitrogen [Mass/Vol] 27 mg/dL High 7-25 [facility] Comment on above: Order Comment: No: D o not add to previous draw Performed By: #### 1 69, 72891 ####[facility] [facility].[address] CBC COMPLETE BLOOD COUNTon 0 8- Erythrocyte distribution width (RBC) [Ratio] 14.2 % Normal 11.5-15.0 [facility] Comment on above: Order Comment: No: D o not add to previous draw Performed By: #### 5 0608 ####[facility] [facility] [place] [address], [facility] Hematocrit (Bld) [Volume fraction] 35.2 % Low 39.0-50.0 [facility] Comment on above: Order Comment: No: D o not add to previous draw Performed By: #### 5 0608 ####[facility] [facility].[address] Hemoglobin (Bld) [Mass/Vol] 11.9 g/dL Low 13.0-17.0 [facility] Comment on above: Order Comment: No: D o not add to previous draw Performed By: #### 5 0608 ####[facility] [facility].[address] MCH (RBC) [Entitic mass] 30.6 pg Normal 27.0-33.0 [facility] Comment on above: Order Comment: No: D o not add to previous draw Performed By: #### 5 0608 ####[facility] [facility].[address] MCHC (RBC) [Mass/Vol] 33.8 g/dL Normal 32.0-35.0 [facility] Comment on above: Order Comment: No: D o not add to previous draw Performed By: #### 5 0608 ####[facility] [facility].[address] MCV (RBC) [Entitic vol] 90.5 fL Normal 82.0-98.0 [facility] Comment on above: Order Comment: No: D o not add to previous draw Performed By: #### 5 0608 ####[facility] [facility].[address] Nucleated RBC/100 WBC (Bld) [Ratio] 0 % Normal 0-0 [facility] Comment on above: Order Comment: No: D o not add to previous draw Performed By: #### 5 0608 ####[address] PLAT CNT 285 10*3/uL Normal 150-400 [facility] Comment on above: Order Comment: No: D o not add to previous draw Performed By: #### 5 0608 ####[facility] [id number], [facility] RBC (Bld) [#/Vol] 3.89 10*6/uL Low 4.20-5.70 [facility] Comment on above: Order Comment: No: D o not add to previous draw Performed By: #### 5 0608 ####[facility] [place] [address], [place] WBC (Bld) [#/Vol] 9.92 10*3/uL Normal 4.00-10.60 [facility] Comment on above: Order Comment: No: D o not add to previous draw Performed By: #### 5 0608 ####[facility] [facility] [place] [address], [facility] MAGNESIUM BLOODon 04-13-2021 Magnesium [Mass/Vol] 1.9 mg/dL Normal 1.9-2.7 [facility] Comment on above: Order Comment: No: D o not add to previous draw Performed By: #### 1 0070, 06731 ####[facility] [facility] [place] [address], [facility] POC GLUCOSE LABon 04-13-2021 Glucose [Mass/Vol] 106 mg/dL High 70-100 [facility] Comment on above: Performed By: #### 8 5499 ####[facility] [facility] [place] [address], [place] Glucose [Mass/Vol] 185 mg/dL High 70-100 [facility] Comment on above: Performed By: #### 8 5499 ####[facility] [place] [address], [place] Glucose [Mass/Vol] 136 mg/dL High 70-100 [facility] Comment on above: Performed By: #### 8 5499 ####[facility] [place] [address], [facility] PORTABLE CHEST 1 VIEWon 03-25 PORTABLE CHEST 1 VIEW Normal [facility] Comment on above: Order Comment: evalu ate for Atelectasis BASIC METABOLIC PANELon 03-25 Calcium [Mass/Vol] 8.3 mg/dL Low 8.6-10.3 [facility] Comment on above: Order Comment: No: D o not add to previous draw Performed By: #### 1 0, 11695 ####[facility] [place] [address], [facility] Chloride [Moles/Vol] 102 mmol/L Normal 98-107 [facility] Comment on above: Order Comment: No: D o not add to previous draw Performed By: #### 1 0, 23274 ####[facility] [place] [address], [facility] CO2 [Moles/Vol] 25 mmol/L Normal 21-31 [facility] Comment on above: Order Comment: No: D o not add to previous draw Performed By: #### 1 0, 75306 ####[facility] [place] [address], [facility] Creatinine [Mass/Vol] 0.67 mg/dL Low 0.70-1.30 [facility] Comment on above: Order Comment: No: D o not add to previous draw Performed By: #### 1 0, 55205 ####[facility] [place] [address], [facility] GFR/1.73 sq M.predicted among blacks MDRD (S/P/Bld) [Vol rate/Area] mL/min/{1.73_m2} Normal >60 [facility] Comment on above: Order Comment: No: D o not add to previous draw Result Comment: Calc ulation may not be valid for patients over 70 years Performed By: #### 1 69, 51101 ####[facility] [place] [address], [facility] GFR/1.73 sq M.predicted among non-blacks MDRD (S/P/Bld) [Vol rate/Area] mL/min/{1.73_m2} Normal >60 [facility] Comment on above: Order Comment: No: D o not add to previous draw Result Comment: Calc ulation may not be valid for patients over 70 years Performed By: #### 1 69, 62991 ####[facility] [facility] [place] [address], [facility] Glucose [Mass/Vol] 116 mg/dL High 70-100 [facility] Comment on above: Order Comment: No: D o not add to previous draw Performed By: #### 1 69, 06504 ####[facility] [place] [address], [place] Potassium [Moles/Vol] 4.0 mmol/L Normal 3.5-5.1 [facility] Comment on above: Order Comment: No: D o not add to previous draw Performed By: #### 1 69, 02933 ####[facility] [facility] [place] [address], [place] Sodium [Moles/Vol] 134 mmol/L Low 136-145 [facility] Comment on above: Order Comment: No: D o not add to previous draw Performed By: #### 1 69, 71520 ####[facility] [place] [address], [place] Urea nitrogen [Mass/Vol] 22 mg/dL Normal 7-25 [facility] Comment on above: Order Comment: No: D o not add to previous draw Performed By: #### 1 69, 98157 ####[facility] CBC COMPLETE BLOOD COUNTon 0 04-12-2021 Erythrocyte distribution width (RBC) [Ratio] 14.6 % Normal 11.5-15.0 [facility] Comment on above: Order Comment: No: D o not add to previous draw Performed By: #### 5 0608 ####[address] Hematocrit (Bld) [Volume fraction] 33.1 % Low 39.0-50.0 [facility] Comment on above: Order Comment: No: D o not add to previous draw Performed By: #### 5 0608 ####[address] Hemoglobin (Bld) [Mass/Vol] 10.6 g/dL Low 13.0-17.0 [facility] Comment on above: Order Comment: No: D o not add to previous draw Performed By: #### 5 0608 ####[address] MCH (RBC) [Entitic mass] 30.0 pg Normal 27.0-33.0 [facility] Comment on above: Order Comment: No: D o not add to previous draw Performed By: #### 5 0608 ####[address] MCHC (RBC) [Mass/Vol] 32.0 g/dL Normal 32.0-35.0 [facility] Comment on above: Order Comment: No: D o not add to previous draw Performed By: #### 5 0608 ####[address] MCV (RBC) [Entitic vol] 93.8 fL Normal 82.0-98.0 [facility] Comment on above: Order Comment: No: D o not add to previous draw Performed By: #### 5 0608 ####[facility] [facility].[address] Nucleated RBC/100 WBC (Bld) [Ratio] 0 % Normal 0-0 [facility] Comment on above: Order Comment: No: D o not add to previous draw Performed By: #### 5 0608 ####[facility] [facility] [place] [address], [facility] PLAT CNT 213 10*3/uL Normal 150-400 [facility] Comment on above: Order Comment: No: D o not add to previous draw Performed By: #### 5 0608 ####[address] [place] [address], [facility] RBC (Bld) [#/Vol] 3.53 10*6/uL Low 4.20-5.70 [facility] Comment on above: Order Comment: No: D o not add to previous draw Performed By: #### 5 0608 ####[facility] [facility].[address] WBC (Bld) [#/Vol] 7.64 10*3/uL Normal 4.00-10.60 [facility] Comment on above: Order Comment: No: D o not add to previous draw Performed By: #### 5 0608 ####[facility] [place] [address].[address] MAGNESIUM BLOODon 04-12-2021 Magnesium [Mass/Vol] 1.9 mg/dL Normal 1.9-2.7 [facility] Comment on above: Order Comment: No: D o not add to previous draw Performed By: #### 1 0070, 36183 ####[facility] [place] [address].[address] POC GLUCOSE LABon 04-12-2021 Glucose [Mass/Vol] 126 mg/dL High 70-100 [facility] Comment on above: Performed By: #### 8 5499 ####[facility] [facility] [place] [address], [facility] Glucose [Mass/Vol] 131 mg/dL High 70-100 [facility] Comment on above: Performed By: #### 8 5499 ####[facility] [facility] [place] [address], [facility] Glucose [Mass/Vol] 167 mg/dL High 70-100 [facility] Comment on above: Performed By: #### 8 5499 ####[facility] [facility] [place] [address], [facility] POC SARS COV2 ANTIGEN NEGATI VEon 04-12-2021 POC SARS COV2 ANTIGEN NEG Negative Normal NEGATIVE [facility] Comment on above: Result Comment: Nega [...] forthe qualitative detection of nucleocapsid protein antigen [id number] in direct nasal swabs from individuals within [...] Certificate ofAccreditation. Performed By: #### 3 1977 ####[facility] [place] [address], [facility] POC SARS COV2 ANTIGEN NEG Negative Normal NEGATIVE [facility] Comment on above: Result Comment: Nega [...] of clinicalsigns and symptoms consistent with COVID-19.The [employer] COVID-19 Ag Card is a lateral flow immunoassay intended forthe qualitative detection of nucleocapsid protein antigen [id number]-5 in direct nasal swabs from individuals within [...] Certificate ofAccreditation. Performed By: #### 3 1977 ####[facility] [facility].[address] PORTABLE CHEST 1 VIEWon 03-25 PORTABLE CHEST 1 VIEW Normal [facility] Comment on above: Order Comment: evalu ate for Atelectasis BASIC METABOLIC PANELon 03-24 Calcium [Mass/Vol] 7.9 mg/dL Low 8.6-10.3 [facility] Comment [facility] above: Order Comment: No: D o not add to previous draw Performed By: #### 4 1000, 33326, 01514 ####[facility] [facility].[address] Chloride [Moles/Vol] 100 mmol/L Normal 98-107 [facility] Comment on above: Order Comment: No: D o not add to previous draw Performed By: #### 4 1000, 30809, 94726 ####[facility] [place] [address], [facility] CO2 [Moles/Vol] 27 mmol/L Normal 21-31 [facility] Comment on above: Order Comment: No: D o not add to previous draw Performed By: #### 4 1000, 50893, 95856 ####[facility] [place] [address], [facility] Creatinine [Mass/Vol] 0.80 mg/dL Normal 0.70-1.30 [facility] Comment on above: Order Comment: No: D o not add to previous draw Performed By: #### 4 1000, 81426, 87286 ####[facility] [place] [address], [facility] GFR/1.73 sq M.predicted among blacks MDRD (S/P/Bld) [Vol rate/Area] mL/min/{1.73_m2} Normal >60 [facility] Comment on above: Order Comment: No: D o not add to previous draw Result Comment: Calc ulation may not be valid for patients over 70 years Performed By: #### 4 1000, 22413, 52245 ####[facility] [facility] [place] [address], [facility] GFR/1.73 sq M.predicted among non-blacks MDRD (S/P/Bld) [Vol rate/Area] mL/min/{1.73_m2} Normal >60 [facility] Comment on above: Order Comment: No: D o not add to previous draw Result Comment: Calc ulation may not be valid for patients over 70 years Performed By: #### 4 1000, 44466, 29663 ####[facility] [place] [address], [place] Glucose [Mass/Vol] 135 mg/dL High 70-100 [facility] Comment on above: Order Comment: No: D o not add to previous draw Performed By: #### 4 1000, 85494, 93659 ####[facility] [place] [address], [facility] Potassium [Moles/Vol] 3.4 mmol/L Low 3.5-5.1 [facility] Comment on above: Order Comment: No: D o not add to previous draw Performed By: #### 4 1000, 32165, 72231 ####[facility] [place] [address], [facility] Sodium [Moles/Vol] 134 mmol/L Low 136-145 [facility] Comment on above: Order Comment: No: D o not add to previous draw Performed By: #### 4 1000, 53159, 36131 ####[facility] [place] [address], [facility] Urea nitrogen [Mass/Vol] 21 mg/dL Normal 7-25 [facility] Comment on above: Order Comment: No: D o not add to previous draw Performed By: #### 4 999, 76165, 62050 ####[facility] [facility].[address] CBC COMPLETE BLOOD COUNTon 0 - Erythrocyte distribution width (RBC) [Ratio] 15.0 % Normal 11.5-15.0 [facility] Comment on above: Order Comment: No: D o not add to previous drawNurse draw Performed By: #### 5 0608 ####[facility] [place] [address], [facility] Hematocrit (Bld) [Volume fraction] 32.0 % Low 39.0-50.0 [facility] Comment on above: Order Comment: No: D o not add to previous drawNurse draw Performed By: #### 5 0608 ####[place] [address] [place] [address], [facility] Hemoglobin (Bld) [Mass/Vol] 10.6 g/dL Low 13.0-17.0 [facility] Comment on above: Order Comment: No: D o not add to previous drawNurse draw Performed By: #### 5 0608 ####[facility] [facility].[address] MCH (RBC) [Entitic mass] 30.5 pg Normal 27.0-33.0 [facility] Comment on above: Order Comment: No: D o not add to previous drawNurse draw Performed By: #### 5 0608 ####[facility] MCHC (RBC) [Mass/Vol] 33.1 g/dL Normal 32.0-35.0 [facility] Comment on above: Order Comment: No: D o not add to previous drawNurse draw Performed By: #### 5 0608 ####[address] MCV (RBC) [Entitic vol] 92.2 fL Normal 82.0-98.0 [facility] Comment on above: Order Comment: No: D o not add to previous drawNurse draw Performed By: #### 5 0608 ####[address] Nucleated RBC/100 WBC (Bld) [Ratio] 0 % Normal 0-0 [facility] Comment on above: Order Comment: No: D o not add to previous drawNurse draw Performed By: #### 5 0608 ####[facility] [place] [address] PLAT CNT 182 10*3/uL Normal 150-400 [facility] Comment on above: Order Comment: No: D o not add to previous drawNurse draw Performed By: #### 5 0608 ####[address] RBC (Bld) [#/Vol] 3.47 10*6/uL Low 4.20-5.70 [facility] Comment on above: Order Comment: No: D o not add to previous drawNurse draw Performed By: #### 5 0608 ####[facility] [place] [address], [facility] WBC (Bld) [#/Vol] 9.87 10*3/uL Normal 4.00-10.60 [facility] Comment on above: Order Comment: No: D o not add to previous drawNurse draw Performed By: #### 5 0608 ####[facility] [place] [address], [facility] MAGNESIUM BLOODon 04-11-2021 Magnesium [Mass/Vol] 2.1 mg/dL Normal 1.9-2.7 [facility] Comment on above: Order Comment: No: D o not add to previous draw Performed By: #### 4 1000, 38226, 49775 ####[facility] [place] [address], [place] PHOSPHORUS BLOODon Phosphate [Mass/Vol] 3.7 mg/dL Normal 2.5-5.0 [facility] Comment on above: Order Comment: No: D o not add to previous draw Performed By: #### 4 1000, 12787, 00683 ####[facility] [place] [address], [place] POC GLUCOSE LABon 04-11-2021 Glucose [Mass/Vol] 137 mg/dL High 70-100 [facility] Comment on above: Performed By: #### 8 5499 ####[facility] [place] [address], [place] Glucose [Mass/Vol] 182 mg/dL High 70-100 [facility] Comment on above: Performed By: #### 8 8069 ####[facility] [place] [address], [place] Glucose [Mass/Vol] 171 mg/dL High 70-100 [facility] Comment on above: Performed By: #### 8 5499 ####[facility] [facility] [place] [address], [facility] Glucose [Mass/Vol] 142 mg/dL High 70-100 [facility] Comment on above: Performed By: #### 8 5499 ####[facility] [facility] [place] [address], [facility] PORTABLE CHEST 1 VIEWon 03-24 PORTABLE CHEST 1 VIEW Normal [facility] Comment on above: Order Comment: Evalu ate for Pneumothorax PORTABLE CHEST 1 VIEW Normal [facility] Comment on above: Order Comment: evalu ate for Pneumothorax BASIC METABOLIC PANELon 03-24 Calcium [Mass/Vol] 8.2 mg/dL Low 8.6-10.3 [facility] Comment on above: Order Comment: No: D o not add to previous drawNurse draw rn barbara Performed By: #### 4 999, 01678, 67264 ####[facility] [place] [address], [facility] Chloride [Moles/Vol] 104 mmol/L Normal 98-107 [facility] Comment on above: Order Comment: No: D o not add to previous drawNurse draw rn barbara Performed By: #### 4 999, 52967, 19617 ####[facility] [facility] [place] [address], [facility] CO2 [Moles/Vol] 27 mmol/L Normal 21-31 The [facility] Comment on above: Order Comment: No: D o not add to previous drawNurse draw rn barbara Performed By: #### 4 999, 50180, 54316 ####[facility] [facility] [place] [address], [facility] Creatinine [Mass/Vol] 0.76 mg/dL Normal 0.70-1.30 [facility] Comment on above: Order Comment: No: D o not add to previous drawNurse draw rn barbara Performed By: #### 4 999, 12992, 09411 ####[facility] [place] [address], [facility] GFR/1.73 sq M.predicted among blacks MDRD (S/P/Bld) [Vol rate/Area] mL/min/{1.73_m2} Normal >60 [facility] Comment on above: Order Comment: No: D o not add to previous drawNurse draw rn barbara Result Comment: Calc ulation may not be valid for patients over 70 years Performed By: #### 4 999, 69670, 38405 ####[facility] [facility] [place] [address], [facility] GFR/1.73 sq M.predicted among non-blacks MDRD (S/P/Bld) [Vol rate/Area] mL/min/{1.73_m2} Normal >60 [facility] Comment on above: Order Comment: No: D o not add to previous drawNurse draw rn barbara Result Comment: Calc ulation may not be valid for patients over 70 years Performed By: #### 4 999, 54122, 32821 ####[facility] [facility] [place] [address], [facility] Glucose [Mass/Vol] 109 mg/dL High 70-100 [facility] Comment on above: Order Comment: No: D o not add to previous drawNurse draw rn barbara Performed By: #### 4 999, 15157, 68139 ####[facility] [place] [address], [address] [facility]. [facility] Potassium [Moles/Vol] 4.0 mmol/L Normal 3.5-5.1 [facility] Comment on above: Order Comment: No: D o not add to previous drawNurse draw rn barbara Performed By: #### 4 999, 48482, 13623 ####[facility] Sodium [Moles/Vol] 135 mmol/L Low 136-145 [facility] Comment on above: Order Comment: No: D o not add to previous drawNurse draw rn barbara Performed By: #### 4 1000, 11633, 67793 ####[facility] Urea nitrogen [Mass/Vol] 15 mg/dL Normal 7-25 [facility] Comment on above: Order Comment: No: D o not add to previous drawNurse draw rn barbara Performed By: #### 4 1000, 96262, 86731 ####[facility] CBC COMPLETE BLOOD COUNTon 0 04-10-2021 Erythrocyte distribution width (RBC) [Ratio] 14.7 % Normal 11.5-15.0 [facility] Comment on above: Order Comment: No: D o not add to previous drawNurse draw rn barbara Performed By: #### 5 0608 ####[facility] Hematocrit (Bld) [Volume fraction] 32.7 % Low 39.0-50.0 [facility] Comment on above: Order Comment: No: D o not add to previous drawNurse draw rn barbara Performed By: #### 5 0608 ####[facility] Hemoglobin (Bld) [Mass/Vol] 10.7 g/dL Low 13.0-17.0 [facility] Comment on above: Order Comment: No: D o not add to previous drawNurse draw rn babrara Performed By: #### 5 0608 ####[facility] [place] [address] MCH (RBC) [Entitic mass] 30.1 pg Normal 27.0-33.0 [facility] Comment on above: Order Comment: No: D o not add to previous drawNurse draw rn barbara Performed By: #### 5 0608 ####[facility] [facility].[address] MCHC (RBC) [Mass/Vol] 32.7 g/dL Normal 32.0-35.0 [facility] Comment on above: Order Comment: No: D o not add to previous drawNurse draw rn barbara Performed By: #### 5 0608 ####[facility] MCV (RBC) [Entitic vol] 92.1 fL Normal 82.0-98.0 [facility] Comment on above: Order Comment: No: D o not add to previous drawNurse draw rn barbara Performed By: #### 5 0608 ####[address] Nucleated RBC/100 WBC (Bld) [Ratio] 0 % Normal 0-0 [facility] Comment on above: Order Comment: No: D o not add to previous drawNurse draw rn barbara Performed By: #### 5 0608 ####[address] PLAT CNT 176 10*3/uL Normal 150-400 [facility] Comment on above: Order Comment: No: D o not add to previous drawNurse draw rn barbara Performed By: #### 5 0608 ####[address] RBC (Bld) [#/Vol] 3.55 10*6/uL Low 4.20-5.70 [facility] Comment on above: Order Comment: No: D o not add to previous drawNurse draw rn barbara Performed By: #### 5 0608 ####[address] WBC (Bld) [#/Vol] 12.43 10*3/uL High 4.00-10.60 [facility] Comment on above: Order Comment: No: D o not add to previous drawNurse draw sumit jimenez Performed By: #### 5 0608 ####[facility] [place] [address], [facility] COOXIMETRYon 04-10-2021 COHB 1 % Normal [facility] Comment on above: Performed By: #### 7 0207 ####[facility] METHB 0 % Normal [facility] Comment on above: Performed By: #### 7 0207 ####[facility] Oxygen saturation in Blood 68.2 % Normal 65.0-75.0 [facility] Comment on above: Performed By: #### 7 0207 ####[facility] THB 13.1 g/dL Normal [facility] Comment on above: Performed By: #### 7 0207 ####[facility] LACTATE BLOODon 04-10-2021 Lactate [Moles/Vol] 0.7 mmol/L Normal .5-2.2 [facility] Comment on above: Order Comment: No: D o not add to previous drawNurse draw sumit jimenez Performed By: #### 1 0054 ####[facility] [place] [address], [facility] MAGNESIUM BLOODon 04-10-2021 Magnesium [Mass/Vol] 2.3 mg/dL Normal 1.9-2.7 [facility] Comment on above: Order Comment: No: D o not add to previous drawNurse draw sumit jimenez Performed By: #### 4 1000, 22854, 60163 ####[facility] [place] [address], [place] PHOSPHORUS BLOODon Phosphate [Mass/Vol] 3.9 mg/dL Normal 2.5-5.0 [facility] Comment on above: Order Comment: No: D o not add to previous drawNurse draw sumit jimenez Performed By: #### 4 1000, 71353, 97348 ####[facility] [place] [address], [place] POC GLUCOSE LABon 04-10-2021 Glucose [Mass/Vol] 168 mg/dL High 70-100 [facility] Comment on above: Performed By: #### 8 5499 ####[facility] [facility] [place] [address], [place] Glucose [Mass/Vol] 131 mg/dL High 70-100 [facility] Comment on above: Performed By: #### 8 5499 ####[facility] [facility] [place] [address], [place] Glucose [Mass/Vol] 123 mg/dL High 70-100 [facility] Comment on above: Performed By: #### 8 5499 ####[facility] [facility] [place] [address], [place] Glucose [Mass/Vol] 170 mg/dL High 70-100 [facility] Comment on above: Performed By: #### 8 5499 ####[facility] [place] [address], [place] Glucose [Mass/Vol] 131 mg/dL High 70-100 [facility] Comment on above: Performed By: #### 8 5499 ####[facility] [place] [address], [place] Glucose [Mass/Vol] 123 mg/dL High 70-100 [facility] Comment on above: Performed By: #### 8 5499 ####[facility] [place] [address], [place] Glucose [Mass/Vol] 92 mg/dL Normal 70-100 [facility] Comment on above: Performed By: #### 8 5499 ####[facility] [place] [address], [place] Glucose [Mass/Vol] 99 mg/dL Normal 70-100 [facility] Comment on above: Performed By: #### 8 5499 ####[facility] [place] [address], [place] Glucose [Mass/Vol] 124 mg/dL High 70-100 [facility] Comment on above: Performed By: #### 8 5499 ####[facility] [place] [address], [place] Glucose [Mass/Vol] 141 mg/dL High 70-100 [facility] Comment on above: Performed By: #### 8 5499 ####[facility] [place] [address], [place] Glucose [Mass/Vol] 143 mg/dL High 70-100 [facility] Comment on above: Performed By: #### 8 5499 ####[facility] [facility] [place] [address], [place] PORTABLE CHEST 1 VIEWon 03-24 PORTABLE CHEST 1 VIEW Normal [facility] Comment on above: Order Comment: Check Chest Tube Position, s/p mediasteinal tube removal PORTABLE CHEST 1 VIEW Normal [facility] Comment on above: Order Comment: evalu ate for Atelectasis APTTon 04-09-2021 aPTT Coag (Bld) [Time] 28.6 s Normal 25.0-35.0 [facility] Comment on above: Order Comment: post [...] THIS PURPOSE. Performed By: #### 5 7307, 57212 ####[facility] ARTERIAL BLOOD GAS WITH ICAo n 04-09-2021 DEL[employer]ERY SYSTEMS [place] Normal [facility] Comment on above: Performed By: #### 8 4511 ####[facility] IONIZED CALCIUM 1.15 mmol/L Normal 1.13-1.32 [facility] Comment on above: Performed By: #### 8 4511 ####[place] [address] LPM 4.0 LPM Normal [facility] Comment on above: Performed By: #### 8 4511 ####[facility] [place] [address], [facility] Oxygen (Bld) [Partial pressure] 63 mm[Hg] Low 83-108 [facility] Comment on above: Performed By: #### 8 4511 ####[facility] Oxygen saturation in Blood 94.2 % Normal 94.0-97.0 [facility] Comment on above: Performed By: #### 8 4511 ####[facility] [place] [address], [facility] BASE EXCESS 3 mmol/L Normal -2-3 [facility] Comment on above: Performed By: #### 8 4511 ####[facility] DEL[employer]ERY SYSTEMS MV Normal [facility] Comment on above: Performed By: #### 8 4511 ####[facility] FIO2 40 % Normal [facility] Comment on above: Performed By: #### 8 4511 ####[facility] HCO3 (Bld) [Moles/Vol] 27 mmol/L Normal 21-28 [facility] Comment on above: Performed By: #### 8 4511 ####[facility] IONIZED CALCIUM 1.17 mmol/L Normal 1.13-1.32 [facility] Comment on above: Performed By: #### 8 4511 ####[facility] [facility].[address] MIN VOLUME 14.0 Normal [facility] Comment on above: Performed By: #### 8 4511 ####[facility] [facility] MODALITY SPONT Normal [facility] Comment on above: Performed By: #### 8 4511 ####[facility] [facility].[address] Oxygen (Bld) [Partial pressure] 79 mm[Hg] Low 83-108 [facility] Comment on above: Performed By: #### 8 4511 ####[facility] [place] [address], [facility] Oxygen saturation in Blood 96.5 % Normal 94.0-97.0 [facility] Comment on above: Performed By: #### 8 4511 ####[facility] [place] [address], [place] PCO2 37 mmHg Normal 35-45 [facility] Comment on above: Performed By: #### 8 4511 ####[facility] [place] [address], [facility] PEEP 5.0 CMH20 Normal [facility] Comment on above: Performed By: #### 8 4511 ####[facility] [place] [address], [facility] PF RATIO 198 mmHg Normal [facility] Comment on above: Performed By: #### 8 4511 ####[facility] [place] [address], [facility] pH (Bld) 7.47 [pH] High 7.35-7.45 [facility] Comment on above: Performed By: #### 8 4511 ####[facility] [place] [address], [facility] PRESSURE SUPPORT 5 Normal [facility] Comment on above: Performed By: #### 8 4511 ####[facility] [place] [address], [facility] BASE EXCESS 2 mmol/L Normal -2-3 [facility] Comment on above: Performed By: #### 8 4511 ####[facility] [place] [address], [facility] DELIVERY SYSTEMS MV Normal [facility] Comment on above: Performed By: #### 8 4511 ####[facility] [place] [address], [facility] FIO2 50 % Normal [facility] Comment on above: Performed By: #### 8 4511 ####[facility] [place] [address], [facility] HCO3 (Bld) [Moles/Vol] 26 mmol/L Normal 21-28 [facility] Comment on above: Performed By: #### 8 4511 ####[facility] [place] [address], [place] IONIZED CALCIUM 1.17 mmol/L Normal 1.13-1.32 [facility] Comment on above: Performed By: #### 8 4511 ####[facility] [place] [address], [place] MIN VOLUME 13.3 Normal [facility] Comment on above: Performed By: #### 8 4511 ####[facility] [place] [address], [place] MODALITY SIMV Normal [facility] Comment on above: Performed By: #### 8 4511 ####[facility] [place] [address], [place] Oxygen (Bld) [Partial pressure] 79 mm[Hg] Low 83-108 [facility] Comment on above: Performed By: #### 8 4511 ####[facility] [place] [address], [place] Oxygen saturation in Blood 96.8 % Normal 94.0-97.0 [facility] Comment on above: Performed By: #### 8 4511 ####[facility] [place] [address], [place] PCO2 36 mmHg Normal 35-45 [facility] Comment on above: Performed By: #### 8 4511 ####[facility] [place] [address], [place] PEEP 8.0 CMH20 Normal [facility] Comment on above: Performed By: #### 8 4511 ####[facility] [place] [address], [place] PF RATIO 158 mmHg Normal [facility] Comment on above: Performed By: #### 8 4511 ####[facility] pH (Bld) 7.46 [pH] High 7.35-7.45 [facility] Comment on above: Performed By: #### 8 4511 ####[facility] [facility].[address] PRESSURE SUPPORT 10 Normal [facility] Comment on above: Performed By: #### 8 4511 ####[facility] [facility].[address] Respiratory rate 18 /min Normal [facility] Comment on above: Performed By: #### 8 4511 ####[place] [address] [facility].[address] TIDAL VOLUME (VT) CC 700 Normal [facility] Comment on above: Performed By: #### 8 4511 ####[facility] [facility].[address] BASE EXCESS -4 mmol/L Low -2-3 [facility] Comment on above: Performed By: #### 8 4511 ####[facility] [facility].[address] DELIVERY SYSTEMS MV Normal [facility] Comment on above: Performed By: #### 8 4511 ####[facility] [facility].[address] FIO2 80 % Normal [facility] Comment on above: Performed By: #### 8 4511 ####[facility] [facility].[address] HCO3 (Bld) [Moles/Vol] 20 mmol/L Low 21-28 [facility] Comment on above: Performed By: #### 8 4511 ####[facility] [facility].[address] IONIZED CALCIUM 1.14 mmol/L Normal 1.13-1.32 [facility] Comment on above: Performed By: #### 8 4511 ####[facility] [place] [address], [facility] MIN VOLUME 13.5 Normal [facility] Comment on above: Performed By: #### 8 4511 ####[facility] [place] [address], [facility] MODALITY SIMV Normal [facility] Comment on above: Performed By: #### 8 4511 ####[facility] Oxygen (Bld) [Partial pressure] 121 mm[Hg] Critically high 83-108 [facility] Comment on above: Performed By: #### 8 4511 ####[facility] Oxygen saturation in Blood 97.1 % High 94.0-97.0 [facility] Comment on above: Performed By: #### 8 4511 ####[facility] [facility] [place] [address], [facility] PCO2 34 mmHg Low 35-45 [facility] Comment on above: Performed By: #### 8 4511 ####[facility] [place] [address], [facility] PEEP 8.0 CMH20 Normal [facility] Comment on above: Performed By: #### 8 4511 ####[facility] [place] [address], [facility] pH (Bld) 7.38 [pH] Normal 7.35-7.45 [facility] Comment on above: Performed By: #### 8 4511 ####[facility] [place] [address], [facility] PRESSURE SUPPORT 10 Normal [facility] Comment on above: Performed By: #### 8 4511 ####[facility] [place] [address], [facility] Respiratory rate 18 /min Normal [facility] Comment on above: Performed By: #### 8 4511 ####[facility] [place] [address], [facility] TIDAL VOLUME (VT) CC 700 Normal [facility] Comment on above: Performed By: #### 8 4511 ####[facility] [place] [address], [facility] BASE EXCESS -8 mmol/L Low -2-3 [facility] Comment on above: Performed By: #### 8 4511 ####[facility] DELIVERY SYSTEMS MV Normal [facility] Comment on above: Performed By: #### 8 4511 ####[facility] [place] [address], [facility] FIO2 80 % Normal [facility] Comment on above: Performed By: #### 8 4511 ####[facility] [place] [address], [facility] HCO3 (Bld) [Moles/Vol] 18 mmol/L Low 21-28 [facility] Comment on above: Performed By: #### 8 4511 ####[facility] [place] [address], [facility] IONIZED CALCIUM 1.06 mmol/L Low 1.13-1.32 [facility] Comment on above: Performed By: #### 8 4511 ####[facility] [place] [address], [facility] MIN VOLUME 16.6 Normal [facility] Comment on above: Performed By: #### 8 4511 ####[facility] [place] [address], [place] MODALITY SIMV Normal [facility] Comment on above: Performed By: #### 8 4511 ####[facility] [place] [address], [place] Oxygen (Bld) [Partial pressure] 86 mm[Hg] Normal 83-108 [facility] Comment on above: Performed By: #### 8 4511 ####[facility] [place] [address], [place] Oxygen saturation in Blood 96.6 % Normal 94.0-97.0 [facility] Comment on above: Performed By: #### 8 4511 ####[facility] [place] [address], [place] PCO2 34 mmHg Low 35-45 [facility] Comment on above: Performed By: #### 8 4511 ####[facility] [place] [address], [place] PEEP 8.0 CMH20 Normal [facility] Comment on above: Performed By: #### 8 4511 ####[facility] [place] [address], [place] PF RATIO 108 mmHg Normal [facility] Comment on above: Performed By: #### 8 4511 ####[facility] [place] [address], [place] pH (Bld) 7.32 [pH] Low 7.35-7.45 [facility] Comment on above: Performed By: #### 8 4511 ####[facility] [place] [address], [place] PRESSURE SUPPORT 10 Normal [facility] Comment on above: Performed By: #### 8 4511 ####[facility] [place] [address], [facility] Respiratory rate 18 /min Normal [facility] Comment on above: Performed By: #### 8 4511 ####[facility] [place] [address], [place] TIDAL VOLUME (VT) CC 700 Normal [facility] Comment on above: Performed By: #### 8 4511 ####[facility] [place] [address], [facility] BASIC METABOLIC PANELon - Calcium [Mass/Vol] 8.0 mg/dL Low 8.6-10.3 [facility] Comment on above: Order Comment: No: D o not add to previous draw Performed By: #### 0 0071, 21572 ####[facility] [place] [address], [facility] Chloride [Moles/Vol] 107 mmol/L Normal 98-107 [facility] Comment on above: Order Comment: No: D o not add to previous draw Performed By: #### 0 0071, 16801 ####[facility] [place] [address], [place] CO2 [Moles/Vol] 26 mmol/L Normal 21-31 The [facility] Comment on above: Order Comment: No: D o not add to previous draw Performed By: #### 0 0071, 08611 ####[facility] [place] [address], [place] Creatinine [Mass/Vol] 0.90 mg/dL Normal 0.70-1.30 [facility] Comment on above: Order Comment: No: D o not add to previous draw Performed By: #### 0 0071, 75735 ####[facility] [place] [address], [place] GFR/1.73 sq M.predicted among blacks MDRD (S/P/Bld) [Vol rate/Area] mL/min/{1.73_m2} Normal >60 [facility] Comment on above: Order Comment: No: D o not add to previous draw Result Comment: Calc ulation may not be valid for patients over 70 years Performed By: #### 0 0071, 59550 ####[facility] [place] [address], [place] GFR/1.73 sq M.predicted among non-blacks MDRD (S/P/Bld) [Vol rate/Area] mL/min/{1.73_m2} Normal >60 [facility] Comment on above: Order Comment: No: D o not add to previous draw Result Comment: Calc ulation may not be valid for patients over 70 years Performed By: #### 0 0071, 56986 ####[facility] [place] [address], [place] Glucose [Mass/Vol] 126 mg/dL High 70-100 [facility] Comment on above: Order Comment: No: D o not add to previous draw Performed By: #### 0 0071, 43088 ####[facility] [place] [address], [place] Potassium [Moles/Vol] 3.8 mmol/L Normal 3.5-5.1 [facility] Comment on above: Order Comment: No: D o not add to previous draw Performed By: #### 0 0071, 86229 ####[facility] [place] [address], [place] Sodium [Moles/Vol] 136 mmol/L Normal 136-145 [facility] Comment on above: Order Comment: No: D o not add to previous draw Performed By: #### 0 0071, 73194 ####[facility] [place] [address], [place] Urea nitrogen [Mass/Vol] 21 mg/dL Normal 7-25 [facility] Comment on above: Order Comment: No: D o not add to previous draw Performed By: #### 0 0071, 84773 ####[facility] [place] [address], [facility] Calcium [Mass/Vol] 7.8 mg/dL Low 8.6-10.3 [facility] Comment on above: Order Comment: post op day 1No: Do not add to previous draw Performed By: #### 1 69, 49496 ####[facility] [place] [address], [place] Chloride [Moles/Vol] 103 mmol/L Normal 98-107 [facility] Comment on above: Order Comment: post op day 1No: Do not add to previous draw Performed By: #### 1 69, 94710 ####[facility] [id number], [place] CO2 [Moles/Vol] 20 mmol/L Low 21-31 [facility] Comment on above: Order Comment: post op day 1No: Do not add to previous draw Performed By: #### 1 69, 91130 ####[facility] [place] [address], [place] Creatinine [Mass/Vol] 1.25 mg/dL Normal 0.70-1.30 [facility] Comment on above: Order Comment: post op day 1No: Do not add to previous draw Performed By: #### 1 69, 63894 ####[facility] [place] [address], [place] eGFR- non- 56 ml/min/1.73sq m Abnormal >60 [facility] Comment on above: Order Comment: post op day 1No: Do not add to previous draw Result Comment: Calc ulation may not be valid for patients over 70 years Performed By: #### 1 69, 90777 ####[facility] [place] [address], [facility] GFR/1.73 sq M.predicted among blacks MDRD (S/P/Bld) [Vol rate/Area] mL/min/{1.73_m2} Normal >60 [facility] Comment on above: Order Comment: post op day 1No: Do not add to previous draw Result Comment: Calc ulation may not be valid for patients over 70 years Performed By: #### 1 69, 97530 ####[facility] [facility] [place] [address], [facility] Glucose [Mass/Vol] 331 mg/dL High 70-100 [facility] Comment on above: Order Comment: post op day 1No: Do not add to previous draw Performed By: #### 1 69, 29338 ####[place] [address] [facility] [place] [address], [facility] Potassium [Moles/Vol] 3.2 mmol/L Low 3.5-5.1 [facility] Comment on above: Order Comment: post op day 1No: Do not add to previous draw Performed By: #### 1 69, 79307 ####[place] [address] [facility] [place] [address], [facility] Sodium [Moles/Vol] 135 mmol/L Low 136-145 [facility] Comment on above: Order Comment: post op day 1No: Do not add to previous draw Performed By: #### 1 69, 84377 ####[facility] [facility] [place] [address], [facility] Urea nitrogen [Mass/Vol] 24 mg/dL Normal 7-25 [facility] Comment on above: Order Comment: post op day 1No: Do not add to previous draw Performed By: #### 1 69, 03564 ####[facility] [facility] [place] [address], [place] CBC COMPLETE BLOOD COUNTon 0 - Erythrocyte distribution width (RBC) [Ratio] 14.6 % Normal 11.5-15.0 [facility] Comment on above: Order Comment: post op day 1No: Do not add to previous draw Performed By: #### 5 0608 ####[facility] [facility].[address] Hematocrit (Bld) [Volume fraction] 30.5 % Low 39.0-50.0 [facility] Comment on above: Order Comment: post op day 1No: Do not add to previous draw Performed By: #### 5 0608 ####[facility] [facility].[address] Hemoglobin (Bld) [Mass/Vol] 10.2 g/dL Low 13.0-17.0 [facility] Comment on above: Order Comment: post op day 1No: Do not add to previous draw Performed By: #### 5 0608 ####[facility] [facility].[address] MCH (RBC) [Entitic mass] 30.9 pg Normal 27.0-33.0 [facility] Comment on above: Order Comment: post op day 1No: Do not add to previous draw Performed By: #### 5 0608 ####[facility] [facility].[address] MCHC (RBC) [Mass/Vol] 33.4 g/dL Normal 32.0-35.0 [facility] Comment on above: Order Comment: post op day 1No: Do not add to previous draw Performed By: #### 5 0608 ####[facility] [facility] [place] [address], [facility] MCV (RBC) [Entitic vol] 92.4 fL Normal 82.0-98.0 [facility] Comment on above: Order Comment: post op day 1No: Do not add to previous draw Performed By: #### 5 0608 ####[facility] Nucleated RBC/100 WBC (Bld) [Ratio] 0 % Normal 0-0 [facility] Comment on above: Order Comment: post op day 1No: Do not add to previous draw Performed By: #### 5 0608 ####[facility] [place] [address], [facility] PLAT CNT 232 10*3/uL Normal 150-400 [facility] Comment on above: Order Comment: post op day 1No: Do not add to previous draw Performed By: #### 5 0608 ####[place] [address], [facility] RBC (Bld) [#/Vol] 3.30 10*6/uL Low 4.20-5.70 [facility] Comment on above: Order Comment: post op day 1No: Do not add to previous draw Performed By: #### 5 0608 ####[facility] [place] [address], [facility] WBC (Bld) [#/Vol] 17.37 10*3/uL High 4.00-10.60 [facility] Comment on above: Order Comment: post op day 1No: Do not add to previous draw Performed By: #### 5 0608 ####[place] [address], [facility] CBC W/DIFFon 04-09-2021 ABS IMM GRANS 0.1 10*3/uL Normal 0.0-0.2 [facility] Comment on above: Order Comment: No: D o not add to previous draw Performed By: #### 5 0103 ####[facility] [place] [address], [facility] ABS NEUTROPHILS 8.3 10*3/uL High 1.6-7.6 [facility] Comment on above: Order Comment: No: D o not add to previous draw Performed By: #### 5 0103 ####[facility] [facility] [place] [address], [facility] Basophils (Bld) [#/Vol] 0.0 10*3/uL Normal 0.0-0.2 [facility] Comment on above: Order Comment: No: D o not add to previous draw Performed By: #### 5 0103 ####[facility] [place] [address], [facility] Basophils/100 WBC (Bld) 0.1 % Normal 0.0-1.0 [facility] Comment on above: Order Comment: No: D o not add to previous draw Performed By: #### 5 0103 ####[facility] [place] [address], [facility] Eosinophils (Bld) [#/Vol] 0.0 10*3/uL Normal 0.0-0.5 [facility] Comment on above: Order Comment: No: D o not add to previous draw Performed By: #### 5 0103 ####[facility] [place] [address], [facility] Eosinophils/100 WBC (Bld) 0.0 % Normal 0.0-6.0 [facility] Comment on above: Order Comment: No: D o not add to previous draw Performed By: #### 5 0103 ####[facility] Erythrocyte distribution width (RBC) [Ratio] 14.4 % Normal 11.5-15.0 [facility] Comment on above: Order Comment: No: D o not add to previous draw Performed By: #### 5 0103 ####[facility] Hematocrit (Bld) [Volume fraction] 28.9 % Low 39.0-50.0 [facility] Comment on above: Order Comment: No: D o not add to previous draw Performed By: #### 5 0103 ####[facility] Hemoglobin (Bld) [Mass/Vol] 9.6 g/dL Low 13.0-17.0 [facility] Comment on above: Order Comment: No: D o not add to previous draw Performed By: #### 5 0103 ####[facility] IMMATURE GRANS 0.5 % Normal 0.0-1.0 [facility] Comment on above: Order Comment: No: D o not add to previous draw Performed By: #### 5 0103 ####[facility] Lymphocytes (Bld) [#/Vol] 1.3 10*3/uL Normal 1.2-4.0 [facility] Comment on above: Order Comment: No: D o not add to previous draw Performed By: #### 5 0103 ####[place] [address] Lymphocytes/100 WBC (Bld) 12.1 % Low 20.0-45.0 [facility] Comment on above: Order Comment: No: D o not add to previous draw Performed By: #### 5 0103 ####[facility] MCH (RBC) [Entitic mass] 30.6 pg Normal 27.0-33.0 [facility] Comment on above: Order Comment: No: D o not add to previous draw Performed By: #### 5 0103 ####[facility] [place] [address] MCHC (RBC) [Mass/Vol] 33.2 g/dL Normal 32.0-35.0 [facility] Comment on above: Order Comment: No: D o not add to previous draw Performed By: #### 5 3 ####[facility] [place] [address], [facility] MCV (RBC) [Entitic vol] 92.0 fL Normal 82.0-98.0 [facility] Comment on above: Order Comment: No: D o not add to previous draw Performed By: #### 5 3 ####[facility] [place] [address], [facility] Monocytes (Bld) [#/Vol] 1.2 10*3/uL High 0.1-1.0 [facility] Comment on above: Order Comment: No: D o not add to previous draw Performed By: #### 5 3 ####[facility] MONOS 10.9 % Normal 5.0-12.0 [facility] Comment on above: Order Comment: No: D o not add to previous draw Performed By: #### 5 102 ####[facility] [place] [address], [facility] Neutrophils/100 WBC (Bld) 76.4 % High 40.0-72.0 [facility] Comment on above: Order Comment: No: D o not add to previous draw Performed By: #### 5 3 ####[facility] Nucleated RBC/100 WBC (Bld) [Ratio] 0 % Normal 0-0 [facility] Comment on above: Order Comment: No: D o not add to previous draw Performed By: #### 5 3 ####[facility] [place] [address], [facility] PLAT CNT 175 10*3/uL Normal 150-400 [facility] Comment on above: Order Comment: No: D o not add to previous draw Performed By: #### 5 0103 ####[facility] [id number], [facility] RBC (Bld) [#/Vol] 3.14 10*6/uL Low 4.20-5.70 [facility] Comment on above: Order Comment: No: D o not add to previous draw Performed By: #### 5 0103 ####[facility] [place] [address], [place] WBC (Bld) [#/Vol] 10.92 10*3/uL High 4.00-10.60 [facility] Comment on above: Order Comment: No: D o not add to previous draw Performed By: #### 5 3 ####[facility] [place] [address], [facility] LACTATE BLOODon 04-09-2021 Lactate [Moles/Vol] 0.9 mmol/L Normal .5-2.2 [facility] Comment on above: Order Comment: No: D o not add to previous draw Performed By: #### 1 0054 ####[facility] [place] [address], [facility] Lactate [Moles/Vol] 3.8 mmol/L High .5-2.2 [facility] Comment on above: Order Comment: No: D o not add to previous draw Result Comment: M-CR ITICAL RESULT(S) REVIEWED, CALLED TO AND READ BACK BY [place] DRIVER 0855 Performed By: #### 1 0054 ####[facility] [place] [address], [place] Lactate [Moles/Vol] 7.1 mmol/L Critically high .5-2.2 [facility] Comment on above: Order Comment: post op day 1No: Do not add to previous draw Result Comment: M-NY EVIOUS CRITICAL RESULT Performed By: #### 1 0054 ####[facility] [place] [address], [facility] MAGNESIUM BLOODon 04-09-2021 Magnesium [Mass/Vol] 2.3 mg/dL Normal 1.9-2.7 [facility] Comment on above: Order Comment: No: D o not add to previous draw Performed By: #### 1 0070, 38669 ####[facility] [place] [address], [place] Magnesium [Mass/Vol] 2.2 mg/dL Normal 1.9-2.7 [facility] Comment on above: Order Comment: added from prior Performed By: #### 0 0071, 71566 ####[facility] [facility] [address], [facility] Magnesium [Mass/Vol] 2.4 mg/dL Normal 1.9-2.7 [facility] Comment on above: Order Comment: post op day 1No: Do not add to previous draw Performed By: #### 1 0070, 77183 ####[facility] [facility] [place] [address], [facility] Operative Reporton Operative Report Normal [facility] POC GLUCOSE LABon 04-09-2021 Glucose [Mass/Vol] 162 mg/dL High 70-100 [facility] Comment on above: Performed By: #### 8 5499 ####[facility] [place] [address], [facility] Glucose [Mass/Vol] 128 mg/dL High 70-100 [facility] Comment on above: Performed By: #### 8 5499 ####[facility] [place] [address], [place] Glucose [Mass/Vol] 117 mg/dL High 70-100 [facility] Comment on above: Performed By: #### 8 5499 ####[facility] [place] [address], [place] Glucose [Mass/Vol] 110 mg/dL High 70-100 [facility] Comment on above: Performed By: #### 8 5499 ####[facility] [place] [address], [place] Glucose [Mass/Vol] 65 mg/dL Low 70-100 [facility] Comment on above: Performed By: #### 8 5499 ####[facility] [place] [address], [place] Glucose [Mass/Vol] 86 mg/dL Normal 70-100 [facility] Comment on above: Performed By: #### 8 5499 ####[facility] [place] [address], [place] Glucose [Mass/Vol] 127 mg/dL High 70-100 [facility] Comment on above: Performed By: #### 8 5499 ####[facility] [place] [address], [place] Glucose [Mass/Vol] 230 mg/dL High 70-100 [facility] Comment on above: Performed By: #### 8 5499 ####[facility] [place] [address], [place] Glucose [Mass/Vol] 244 mg/dL High 70-100 [facility] Comment on above: Performed By: #### 8 5499 ####[facility] [place] [address], [place] Glucose [Mass/Vol] 283 mg/dL High 70-100 [facility] Comment on above: Performed By: #### 8 5499 ####[facility] [place] [address], [place] Glucose [Mass/Vol] 326 mg/dL High 70-100 [facility] Comment on above: Performed By: #### 8 5499 ####[facility] [place] [address], [place] Glucose [Mass/Vol] 347 mg/dL High 70-100 [facility] Comment on above: Performed By: #### 8 5499 ####[facility] [place] [address], [place] Glucose [Mass/Vol] 258 mg/dL High 70-100 [facility] Comment on above: Performed By: #### 8 5499 ####[facility] [place] [address], [place] Glucose [Mass/Vol] 334 mg/dL High 70-100 [facility] Comment on above: Performed By: #### 8 5499 ####[facility] [place] [address], [place] Glucose [Mass/Vol] 338 mg/dL High 70-100 [facility] Comment on above: Performed By: #### 8 5499 ####[facility] [place] [address], [place] Glucose [Mass/Vol] 321 mg/dL High 70-100 [facility] Comment on above: Performed By: #### 8 5499 ####[facility] [place] [address], [place] Glucose [Mass/Vol] 302 mg/dL High 70-100 [facility] Comment on above: Performed By: #### 8 5499 ####[facility] [place] [address], [place] PORTABLE CHEST 1 VIEWon 03-24 PORTABLE CHEST 1 VIEW Normal [facility] Comment on above: Order Comment: Check Chest Tube Position POTASSIUM BLOODon 04-09-2021 Potassium [Moles/Vol] 4.6 mmol/L Normal 3.5-5.1 [facility] Comment on above: Order Comment: No: D o not add to previous draw Performed By: #### 1 0070, 17508 ####[facility] [facility].[address] PROTHROMBIN TIMEon 1 INR Coag (PPP) [Relative time] 1.22 {INR} High 0.91-1.16 [facility] Comment on above: Order Comment: post [...] OF ACTION, CLINICALEFFECTIVENESS, AND OPTIMAL THERAPEUTIC RANGE. [id number]. Performed By: #### 5 7307, 04646 ####[facility] [facility] [place] [address], [facility] PT Coag (PPP) [Time] 15.4 s High 12.3-14.8 [facility] Comment on above: Order Comment: post op day 1No: Do not add to previous draw Result Comment: ALL RESULTS MUST BE INTERPRETED WITH RESPECT TO BLOOD DRAWING ARTIFACTOR DILUTION ERROR OF ANTICOAGULANT AT THE TIME OF SAMPLING. Performed By: #### 5 7307, 10900 ####[facility] [place] [address], [facility] ACTIVATED CLOTTING TIMEon ACTIVATED CLOTTING TIME 121 sec Normal 82-152 [facility] Comment on above: Performed By: #### 3 0739 ####[facility] [place] [address], [place] ACTIVATED CLOTTING TIME 305 sec High 82-152 [facility] Comment on above: Performed By: #### 3 0739 ####[facility] [place] [address], [place] ACTIVATED CLOTTING TIME 286 sec High 82-152 [facility] Comment on above: Performed By: #### 3 0739 ####[facility] [place] [address], [place] ACTIVATED CLOTTING TIME 279 sec High 82-152 [facility] Comment on above: Performed By: #### 3 0739 ####[facility] [place] [address], [place] ACTIVATED CLOTTING TIME 325 sec High 82-152 [facility] Comment on above: Performed By: #### 3 0739 ####[facility] [place] [address], [place] ACTIVATED CLOTTING TIME 184 sec High 82-152 [facility] Comment on above: Performed By: #### 3 0739 ####[facility] [place] [address], [place] ACTIVATED CLOTTING TIME 121 sec Normal 82-152 [facility] Comment on above: Performed By: #### 3 0739 ####[facility] [place] [address], [place] APTTon 04-08-2021 aPTT Coag (Bld) [Time] 30.4 s Normal 25.0-35.0 [facility] Comment on above: Order Comment: No: [...] THIS PURPOSE. Performed By: #### 5 6101, 77407 ####[facility] aPTT Coag (Bld) [Time] 30.6 s Normal 25.0-35.0 [facility] Comment on above: Result Comment: ALL [...] THIS PURPOSE. Performed By: #### 5 7307, 89689, 73743 ####[facility] ARTERIAL BLOOD GAS WITH ICAo n 04-08-2021 BASE EXCESS -4 mmol/L Low -2-3 [facility] Comment on above: Order Comment: on ar rival to CVU Performed By: #### 8 4511 ####[facility] [place] [address], [facility] [employer] MV Normal [facility] Comment on above: Order Comment: on ar rival to CVU Performed By: #### 8 4511 ####[facility] [place] [address], [facility] FIO2 70 % Normal [facility] Comment on above: Order Comment: on ar rival to CVU Performed By: #### 8 4511 ####[facility] [place] [address], [facility] HCO3 (Bld) [Moles/Vol] 21 mmol/L Normal 21-28 [facility] Comment on above: Order Comment: on ar rival to CVU Performed By: #### 8 4511 ####[facility] [place] [address], [place] IONIZED CALCIUM 1.09 mmol/L Low 1.13-1.32 [facility] Comment on above: Order Comment: on ar rival to CVU Performed By: #### 8 4511 ####[facility] [place] [address], [facility] MIN VOLUME 14.2 Normal [facility] Comment on above: Order Comment: on ar rival to CVU Result Comment: Resu lt changed by DOTTY on 04/08/2021 19:16. The previous value was16.0. Performed By: #### 8 4511 ####[facility] [place] [address], [facility] MODALITY SIMV Normal [facility] Comment on above: Order Comment: on ar rival to CVU Performed By: #### 8 4511 ####[facility] [place] [address], [place] Oxygen (Bld) [Partial pressure] 69 mm[Hg] Low 83-108 [facility] Comment on above: Order Comment: on ar rival to CVU Performed By: #### 8 4511 ####[facility] [place] [address], [place] Oxygen saturation in Blood 93.8 % Low 94.0-97.0 [facility] Comment on above: Order Comment: on ar rival to CVU Performed By: #### 8 4511 ####[facility] [place] [address], [place] PCO2 36 mmHg Normal 35-45 [facility] Comment on above: Order Comment: on ar rival to CVU Performed By: #### 8 4511 ####[facility] [place] [address], [facility] PEEP 8.0 CMH20 Normal [facility] Comment on above: Order Comment: on ar rival to CVU Performed By: #### 8 4511 ####[facility] [place] [address], [facility] PF RATIO 99 mmHg Normal [facility] Comment on above: Order Comment: on ar rival to CVU Performed By: #### 8 4511 ####[facility] [place] [address], [facility] pH (Bld) 7.37 [pH] Normal 7.35-7.45 [facility] Comment on above: Order Comment: on ar rival to CVU Performed By: #### 8 4511 ####[facility] [place] [address], [facility] PRESSURE SUPPORT 10 Normal [facility] Comment on above: Order Comment: on ar rival to CVU Performed By: #### 8 4511 ####[facility] [place] [address], [facility] Respiratory rate 16 /min Normal [facility] Comment on above: Order Comment: on ar rival to CVU Performed By: #### 8 4511 ####[facility] [place] [address], [facility] TIDAL VOLUME (VT) CC 700 Normal [facility] Comment on above: Order Comment: on ar rival to CVU Performed By: #### 8 4511 ####[facility] [place] [address], [place] BASE EXCESS -4 mmol/L Low -2-3 [facility] Comment on above: Performed By: #### 8 4511 ####[facility] [place] [address], [facility] [employer] VENT Normal [facility] Comment on above: Performed By: #### 8 4511 ####[facility] [place] [address], [facility] FIO2 70 % Normal [facility] Comment on above: Performed By: #### 8 4511 ####[facility] [place] [address], [facility] HCO3 (Bld) [Moles/Vol] 23 mmol/L Normal 21-28 [facility] Comment on above: Performed By: #### 8 4511 ####[facility] [place] [address], [facility] IONIZED CALCIUM 1.14 mmol/L Normal 1.13-1.32 [facility] Comment on above: Performed By: #### 8 4511 ####[facility] [place] [address], [place] MIN VOLUME 9.0 Normal [facility] Comment on above: Performed By: #### 8 4511 ####[facility] [place] [address], [facility] MODALITY SIMV Normal [facility] Comment on above: Performed By: #### 8 4511 ####[facility] [place] [address], [facility] Oxygen (Bld) [Partial pressure] 70 mm[Hg] Low 83-108 The [facility] Comment on above: Performed By: #### 8 4511 ####[facility] [place] [address], [place] Oxygen saturation in Blood 92.5 % Low 94.0-97.0 [facility] Comment on above: Performed By: #### 8 4511 ####[facility] [place] [address], [facility] PCO2 48 mmHg High 35-45 [facility] Comment on above: Performed By: #### 8 4511 ####[facility] [place] [address], [facility] PEEP 8.0 CMH20 Normal [facility] Comment on above: Performed By: #### 8 4511 ####[facility] [facility] [place] [address], [facility] PF RATIO 100 mmHg Normal [facility] Comment on above: Performed By: #### 8 4511 ####[facility] [facility] [place] [address], [facility] pH (Bld) 7.28 [pH] Low 7.35-7.45 [facility] Comment on above: Performed By: #### 8 4511 ####[facility] [facility].[address] PRESSURE SUPPORT 10 Normal [facility] Comment on above: Performed By: #### 8 4511 ####[facility] [facility].[address] Respiratory rate 14 /min Normal [facility] Comment on above: Performed By: #### 8 4511 ####[facility] [facility].[address] TIDAL VOLUME (VT) CC 550 Normal [facility] Comment on above: Performed By: #### 8 4511 ####[facility] [facility] BASIC METABOLIC PANELon 08- Calcium [Mass/Vol] 7.7 mg/dL Low 8.6-10.3 [facility] Comment on above: Order Comment: No: D o not add to previous draw Performed By: #### 1 0070, 05723, 02002 ####[facility] [place] [address], [place] Chloride [Moles/Vol] 103 mmol/L Normal 98-107 [facility] Comment on above: Order Comment: No: D o not add to previous draw Performed By: #### 1 0070, 08895, 20350 ####[facility] [place] [address], [place] CO2 [Moles/Vol] 21 mmol/L Normal 21-31 The [facility] Comment on above: Order Comment: No: D o not add to previous draw Performed By: #### 1 0070, 97848, 20269 ####[facility] [place] [address], [facility] Creatinine [Mass/Vol] 1.15 mg/dL Normal 0.70-1.30 [facility] Comment on above: Order Comment: No: D o not add to previous draw Performed By: #### 1 0070, 71030, 85737 ####[facility] [place] [address], [place] GFR/1.73 sq M.predicted among blacks MDRD (S/P/Bld) [Vol rate/Area] mL/min/{1.73_m2} Normal >60 [facility] Comment on above: Order Comment: No: D o not add to previous draw Result Comment: Calc ulation may not be valid for patients over 70 years Performed By: #### 1 0070, 21945, 04746 ####[facility] [place] [address], [place] GFR/1.73 sq M.predicted among non-blacks MDRD (S/P/Bld) [Vol rate/Area] mL/min/{1.73_m2} Normal >60 [facility] Comment on above: Order Comment: No: D o not add to previous draw Result Comment: Calc ulation may not be valid for patients over 70 years Performed By: #### 1 0070, 51539, 63991 ####[facility] [place] [address], [place] Glucose [Mass/Vol] 224 mg/dL High 70-100 [facility] Comment on above: Order Comment: No: D o not add to previous draw Performed By: #### 1 0, 69683, 50376 ####[facility] [place] [address], [place] Potassium [Moles/Vol] 3.9 mmol/L Normal 3.5-5.1 [facility] Comment on above: Order Comment: No: D o not add to previous draw Performed By: #### 1 0, 89418, 50477 ####[facility] [place] [address], [place] Sodium [Moles/Vol] 134 mmol/L Low 136-145 [facility] Comment on above: Order Comment: No: D o not add to previous draw Performed By: #### 1 0, 43256, 25079 ####[facility] [place] [address], [place] Urea nitrogen [Mass/Vol] 22 mg/dL Normal 7-25 [facility] Comment on above: Order Comment: No: D o not add to previous draw Performed By: #### 1 0, 06489, 62463 ####[facility] [place] [address], [place] Calcium [Mass/Vol] 7.7 mg/dL Low 8.6-10.3 [facility] Comment on above: Performed By: #### 1 0, 78988, 96249 ####[facility] [place] [address], [place] Chloride [Moles/Vol] 105 mmol/L Normal 98-107 [facility] Comment on above: Performed By: #### 1 0070, 52405, 79220 ####[facility] [place] [address], [place] CO2 [Moles/Vol] 24 mmol/L Normal 21-31 [facility] Comment on above: Performed By: #### 1 0070, 33429, 02250 ####[facility] [place] [address], [place] Creatinine [Mass/Vol] 0.81 mg/dL Normal 0.70-1.30 [facility] Comment on above: Performed By: #### 1 0, 82303, 48651 ####[facility] [place] [address], [place] GFR/1.73 sq M.predicted among blacks MDRD (S/P/Bld) [Vol rate/Area] mL/min/{1.73_m2} Normal >60 [facility] Comment on above: Result Comment: Calc ulation may not be valid for patients over 70 years Performed By: #### 1 0070, 07718, 27027 ####[facility] [place] [address], [place] GFR/1.73 sq M.predicted among non-blacks MDRD (S/P/Bld) [Vol rate/Area] mL/min/{1.73_m2} Normal >60 [facility] Comment on above: Result Comment: Calc ulation may not be valid for patients over 70 years Performed By: #### 1 0070, 42375, 64393 ####[facility] [place] [address], [place] Glucose [Mass/Vol] 189 mg/dL High 70-100 [facility] Comment on above: Performed By: #### 1 0070, 85726, 92388 ####[facility] [place] [address], [place] Potassium [Moles/Vol] 4.3 mmol/L Normal 3.5-5.1 [facility] Comment on above: Performed By: #### 1 0070, 79373, 38436 ####[facility] [place] [address], [facility] Sodium [Moles/Vol] 133 mmol/L Low 136-145 [facility] Comment on above: Performed By: #### 1 0070, 65840, 31427 ####[facility] [place] [address], [place] Urea nitrogen [Mass/Vol] 20 mg/dL Normal 7-25 [facility] Comment on above: Performed By: #### 1 0070, 70928, 06228 ####[facility] [place] [address], [place] Calcium [Mass/Vol] 8.7 mg/dL Normal 8.6-10.3 [facility] Comment on above: Order Comment: No: D o not add to previous draw Performed By: #### 0 0071, 59962, 32858 ####[facility] [place] [address], [place] Chloride [Moles/Vol] 103 mmol/L Normal 98-107 [facility] Comment on above: Order Comment: No: D o not add to previous draw Performed By: #### 0 0071, 41174, 27886 ####[facility] [place] [address], [place] CO2 [Moles/Vol] 26 mmol/L Normal 21-31 The [facility] Comment on above: Order Comment: No: D o not add to previous draw Performed By: #### 0 0071, 84881, 13021 ####[facility] [place] [address], [place] Creatinine [Mass/Vol] 0.74 mg/dL Normal 0.70-1.30 [facility] Comment on above: Order Comment: No: D o not add to previous draw Performed By: #### 0 0071, 40913, 21116 ####[facility] [place] [address], [facility] GFR/1.73 sq M.predicted among blacks MDRD (S/P/Bld) [Vol rate/Area] mL/min/{1.73_m2} Normal >60 [facility] Comment on above: Order Comment: No: D o not add to previous draw Result Comment: Calc ulation may not be valid for patients over 70 years Performed By: #### 0 0071, 75434, 67877 ####[facility] [facility] [place] [address], [facility] GFR/1.73 sq M.predicted among non-blacks MDRD (S/P/Bld) [Vol rate/Area] mL/min/{1.73_m2} Normal >60 [facility] Comment on above: Order Comment: No: D o not add to previous draw Result Comment: Calc ulation may not be valid for patients over 70 years Performed By: #### 0 0071, 21336, 85931 ####[facility] [facility] [place] [address], [facility] Glucose [Mass/Vol] 107 mg/dL High 70-100 [facility] Comment on above: Order Comment: No: D o not add to previous draw Performed By: #### 0 0071, 29974, 37472 ####[facility] [place] [address], [place] Potassium [Moles/Vol] 4.1 mmol/L Normal 3.5-5.1 [facility] Comment on above: Order Comment: No: D o not add to previous draw Performed By: #### 0 0071, 20869, 14880 ####[facility] [place] [address], [place] Sodium [Moles/Vol] 133 mmol/L Low 136-145 [facility] Comment on above: Order Comment: No: D o not add to previous draw Performed By: #### 0 0071, 21283, 60696 ####[facility] [facility].[address] Urea nitrogen [Mass/Vol] 19 mg/dL Normal 7-25 [facility] Comment on above: Order Comment: No: D o not add to previous draw Performed By: #### 0 0071, 10832, 04849 ####[facility] [facility].[address] CBC COMPLETE BLOOD COUNTon 0 04-08-2021 Erythrocyte distribution width (RBC) [Ratio] 14.4 % Normal 11.5-15.0 [facility] Comment on above: Order Comment: No: D o not add to previous draw Performed By: #### 5 0608 ####[facility] [facility].[address] Hematocrit (Bld) [Volume fraction] 33.4 % Low 39.0-50.0 [facility] Comment on above: Order Comment: No: D o not add to previous draw Performed By: #### 5 0608 ####[facility] [facility] [place] [address], [facility] Hemoglobin (Bld) [Mass/Vol] 10.9 g/dL Low 13.0-17.0 [facility] Comment on above: Order Comment: No: D o not add to previous draw Performed By: #### 5 0608 ####[facility] [facility] [place] [address], [facility] MCH (RBC) [Entitic mass] 30.4 pg Normal 27.0-33.0 [facility] Comment on above: Order Comment: No: D o not add to previous draw Performed By: #### 5 0608 ####[facility] [facility] [place] [address], [facility] MCHC (RBC) [Mass/Vol] 32.6 g/dL Normal 32.0-35.0 [facility] Comment on above: Order Comment: No: D o not add to previous draw Performed By: #### 5 0608 ####[facility] [place] [address], [facility] MCV (RBC) [Entitic vol] 93.3 fL Normal 82.0-98.0 [facility] Comment on above: Order Comment: No: D o not add to previous draw Performed By: #### 5 0608 ####[facility] [facility].[address] Nucleated RBC/100 WBC (Bld) [Ratio] 0 % Normal 0-0 [facility] Comment on above: Order Comment: No: D o not add to previous draw Performed By: #### 5 0608 ####[facility] [facility].[address] PLAT CNT 228 10*3/uL Normal 150-400 [facility] Comment on above: Order Comment: No: D o not add to previous draw Performed By: #### 5 0608 ####[place] [address] [facility].[address] RBC (Bld) [#/Vol] 3.58 10*6/uL Low 4.20-5.70 [facility] Comment on above: Order Comment: No: D o not add to previous draw Performed By: #### 5 0608 ####[facility] [facility] [place] [address], [facility] WBC (Bld) [#/Vol] 18.53 10*3/uL High 4.00-10.60 [facility] Comment on above: Order Comment: No: D o not add to previous draw Performed By: #### 5 0608 ####[facility] [facility] Erythrocyte distribution width (RBC) [Ratio] 14.6 % Normal 11.5-15.0 [facility] Comment on above: Performed By: #### 5 0608 ####[place] [address] [facility].[address] Hematocrit (Bld) [Volume fraction] 35.5 % Low 39.0-50.0 [facility] Comment on above: Performed By: #### 5 0608 ####[facility] [place] [address] Hemoglobin (Bld) [Mass/Vol] 11.5 g/dL Low 13.0-17.0 [facility] Comment on above: Performed By: #### 5 0608 ####[address] MCH (RBC) [Entitic mass] 30.5 pg Normal 27.0-33.0 [facility] Comment on above: Performed By: #### 5 0608 ####[place] [address] MCHC (RBC) [Mass/Vol] 32.4 g/dL Normal 32.0-35.0 [facility] Comment on above: Performed By: #### 5 0608 ####[address] MCV (RBC) [Entitic vol] 94.2 fL Normal 82.0-98.0 [facility] Comment on above: Performed By: #### 5 0608 ####[address] Nucleated RBC/100 WBC (Bld) [Ratio] 0 % Normal 0-0 [facility] Comment on above: Performed By: #### 5 0608 ####[address] PLAT CNT 219 10*3/uL Normal 150-400 The [facility] Comment on above: Performed By: #### 5 0608 ####[facility] [facility] [place] [address], [facility] RBC (Bld) [#/Vol] 3.77 10*6/uL Low 4.20-5.70 [facility] Comment on above: Performed By: #### 5 0608 ####[facility] [facility] [place] [address], [facility] WBC (Bld) [#/Vol] 14.37 10*3/uL High 4.00-10.60 [facility] Comment on above: Performed By: #### 5 0608 ####[facility] [facility].[address] Erythrocyte distribution width (RBC) [Ratio] 14.7 % Normal 11.5-15.0 [facility] Comment on above: Order Comment: No: D o not add to previous draw Performed By: #### 5 0608 ####[facility] [facility].[address] Hematocrit (Bld) [Volume fraction] 40.7 % Normal 39.0-50.0 [facility] Comment on above: Order Comment: No: D o not add to previous draw Performed By: #### 5 0608 ####[facility] [facility] [place] [address], [facility] Hemoglobin (Bld) [Mass/Vol] 13.5 g/dL Normal 13.0-17.0 [facility] Comment on above: Order Comment: No: D o not add to previous draw Performed By: #### 5 0608 ####[facility] [facility] [place] [address], [facility] MCH (RBC) [Entitic mass] 30.5 pg Normal 27.0-33.0 [facility] Comment on above: Order Comment: No: D o not add to previous draw Performed By: #### 5 0608 ####[facility] [facility].[address] MCHC (RBC) [Mass/Vol] 33.2 g/dL Normal 32.0-35.0 [facility] Comment on above: Order Comment: No: D o not add to previous draw Performed By: #### 5 0608 ####[facility] MCV (RBC) [Entitic vol] 92.1 fL Normal 82.0-98.0 [facility] Comment on above: Order Comment: No: D o not add to previous draw Performed By: #### 5 0608 ####[place] [address] Nucleated RBC/100 WBC (Bld) [Ratio] 0 % Normal 0-0 [facility] Comment on above: Order Comment: No: D o not add to previous draw Performed By: #### 5 0608 ####[facility] [facility].[address] PLAT CNT 233 10*3/uL Normal 150-400 The [facility] Comment on above: Order Comment: No: D o not add to previous draw Performed By: #### 5 0608 ####[facility] [facility].[address] RBC (Bld) [#/Vol] 4.42 10*6/uL Normal 4.20-5.70 [facility] Comment on above: Order Comment: No: D o not add to previous draw Performed By: #### 5 0608 ####[facility] [place] [address].[place] [address], [facility] WBC (Bld) [#/Vol] 7.11 10*3/uL Normal 4.00-10.60 [facility] Comment on above: Order Comment: No: D o not add to previous draw Performed By: #### 5 0608 ####[facility] COOXIMETRYon 04-08-2021 COHB 1 % Normal [facility] Comment on above: Performed By: #### 7 0207 ####[facility] METHB 1 % Normal [facility] Comment on above: Performed By: #### 7 0207 ####[facility] Oxygen saturation in Blood 77.5 % High 65.0-75.0 [facility] Comment on above: Performed By: #### 7 0207 ####[facility] THB 10.7 g/dL Normal [facility] Comment on above: Performed By: #### 7 0207 ####[facility] FERRITINon 04-08-2021 Ferritin [Mass/Vol] 116 ng/mL Normal 24-336 [facility] Comment on above: Performed By: #### 1 0070, 98691, 99002 ####[facility] [place] [address], [facility] FIBRINOGENon 04-08-2021 FIBRINOGEN 362 mg/dL Normal 150-425 [facility] Comment on above: Performed By: #### 5 7307, 42820, 82716 ####[facility] [place] [address], [facility] LACTATE BLOODon 04-08-2021 Lactate [Moles/Vol] 3.7 mmol/L High .5-2.2 [facility] Comment on above: Order Comment: No: D o not add to previous draw Result Comment: M-CR ITICAL RESULT(S) REVIEWED, CALLED TO AND READ BACK BY Kleber TRAN at 2203. Performed By: #### 1 0054 ####[facility] [place] [address], [place] Lactate [Moles/Vol] 2.5 mmol/L High .5-2.2 [facility] Comment on above: Order Comment: No: D o not add to previous draw Performed By: #### 1 0054 ####[facility] [place] [address], [place] Lactate [Moles/Vol] 1.0 mmol/L Normal .5-2.2 [facility] Comment on above: Performed By: #### 1 0054 ####[facility] [place] [address], [place] MAGNESIUM BLOODon 04-08-2021 Magnesium [Mass/Vol] 2.3 mg/dL Normal 1.9-2.7 [facility] Comment on above: Order Comment: No: D o not add to previous draw Performed By: #### 1 0070, 49416, 22480 ####[facility] [facility] [place] [address], [place] Magnesium [Mass/Vol] 1.9 mg/dL Normal 1.9-2.7 [facility] Comment on above: Performed By: #### 1 0070, 95016, 41758 ####[facility] [place] [address], [place] Magnesium [Mass/Vol] 2.2 mg/dL Normal 1.9-2.7 [facility] Comment on above: Order Comment: No: D o not add to previous draw Performed By: #### 0 0071, 22586, 34592 ####[facility] [place] [address], [facility] PERFUSION BLOOD PANELon 03-24 BASE EXCESS -3.0 mmol/L Low -2.0-3.0 [facility] Comment on above: Performed By: #### 3 0738 ####[facility] [place] [address], [facility] Glucose [Mass/Vol] 193 mg/dL High 70-105 [facility] Comment on above: Performed By: #### 3 0738 ####[facility] [place] [address], [facility] Hematocrit (Bld) [Volume fraction] 36 % Low 38-51 [facility] Comment on above: Performed By: #### 3 0738 ####[facility] [place] [address], [facility] Hemoglobin (Bld) [Mass/Vol] 12.2 g/dL Normal 12.0-17.0 [facility] Comment on above: Performed By: #### 3 0738 ####[place] [address] [place] [address], [facility] IONIZED CALCIUM 1.22 mmol/L Normal 1.12-1.32 [facility] Comment on above: Performed By: #### 3 0738 ####[facility] [place] [address], [facility] Oxygen (Bld) [Partial pressure] 131.0 mm[Hg] High 80.0-105.0 [facility] Comment on above: Performed By: #### 3 0738 ####[facility] [place] [address], [facility] PCO2 51.6 mmHg High 35.0-45.0 [facility] Comment on above: Performed By: #### 3 0738 ####[facility] [place] [address], [facility] pH (Bld) 7.28 [pH] Low 7.35-7.45 [facility] Comment on above: Performed By: #### 3 0738 ####[facility] [id number], [facility] Potassium [Moles/Vol] 4.4 mmol/L Normal 3.5-4.9 [facility] Comment on above: Performed By: #### 3 0738 ####[facility] [place] [address], [facility] Sodium [Moles/Vol] 139 mmol/L Normal 138-146 [facility] Comment on above: Performed By: #### 3 0738 ####[facility] [place] [address], [facility] BASE EXCESS -2.0 mmol/L Normal -2.0-3.0 [facility] Comment on above: Performed By: #### 3 0738 ####[facility] [place] [address], [facility] Glucose [Mass/Vol] 156 mg/dL High 70-105 [facility] Comment on above: Performed By: #### 3 0738 ####[facility] [place] [address], [facility] Hematocrit (Bld) [Volume fraction] 36 % Low 38-51 [facility] Comment on above: Performed By: #### 3 0738 ####[facility] [place] [address], [facility] Hemoglobin (Bld) [Mass/Vol] 12.2 g/dL Normal 12.0-17.0 [facility] Comment on above: Performed By: #### 3 0738 ####[facility] [id number], [facility] IONIZED CALCIUM 1.17 mmol/L Normal 1.12-1.32 The [facility] ersity of [facility] Comment on above: Performed By: #### 3 0738 ####[facility] [place] [address], [facility] Oxygen (Bld) [Partial pressure] 196.0 mm[Hg] High 80.0-105.0 The [facility] Comment on above: Performed By: #### 3 0738 ####[facility] [place] [address], [facility] PCO2 46.9 mmHg High 35.0-45.0 The [facility] Comment on above: Performed By: #### 3 0738 ####[facility] [facility] [place] [address], [facility] pH (Bld) 7.33 [pH] Low 7.35-7.45 [facility] Comment on above: Performed By: #### 3 0738 ####[facility] [facility] [place] [address], [facility] Potassium [Moles/Vol] 4.5 mmol/L Normal 3.5-4.9 [facility] Comment on above: Performed By: #### 3 0738 ####[facility] [facility] [place] [address], [place] Sodium [Moles/Vol] 139 mmol/L Normal 138-146 The [facility] Comment on above: Performed By: #### 3 0738 ####[facility] [facility] [place] [address], [place] BASE EXCESS -1.0 mmol/L Normal -2.0-3.0 The [facility] Comment on above: Performed By: #### 3 0738 ####[facility] [place] [address], [place] Glucose [Mass/Vol] 133 mg/dL High 70-105 The [facility] Comment on above: Performed By: #### 3 0738 ####[facility] [facility] [place] [address], [facility] Hematocrit (Bld) [Volume fraction] 37 % Low 38-51 The [facility] Comment on above: Performed By: #### 3 0738 ####[facility] [facility].[address] Hemoglobin (Bld) [Mass/Vol] 12.6 g/dL Normal 12.0-17.0 [facility] Comment on above: Performed By: #### 3 0738 ####[place] [address] [facility].[address] IONIZED CALCIUM 1.19 mmol/L Normal 1.12-1.32 [facility] Comment on above: Performed By: #### 3 0738 ####[place] [address] [facility].[address] Oxygen (Bld) [Partial pressure] 184.0 mm[Hg] High 80.0-105.0 [facility] Comment on above: Performed By: #### 3 0738 ####[address] PCO2 46.6 mmHg High 35.0-45.0 [facility] Comment on above: Performed By: #### 3 0738 ####[facility] [facility].[address] pH (Bld) 7.34 [pH] Low 7.35-7.45 [facility] Comment on above: Performed By: #### 3 0738 ####[place] [address] [facility] [place] [address], [facility] Potassium [Moles/Vol] 4.3 mmol/L Normal 3.5-4.9 [facility] Comment on above: Performed By: #### 3 0738 ####[facility] [place] [address], [facility] Sodium [Moles/Vol] 139 mmol/L Normal 138-146 [facility] Comment on above: Performed By: #### 3 0738 ####[facility] [place] [address], [facility] BASE EXCESS -1.0 mmol/L Normal -2.0-3.0 The [facility] Comment on above: Performed By: #### 3 0738 ####[facility] [place] [address], [facility] Glucose [Mass/Vol] 118 mg/dL High 70-105 [facility] Comment on above: Performed By: #### 3 0738 ####[place] [address] [place] [address], [facility] Hematocrit (Bld) [Volume fraction] 39 % Normal 38-51 [facility] Comment on above: Performed By: #### 3 0738 ####[facility] [place] [address], [facility] Hemoglobin (Bld) [Mass/Vol] 13.3 g/dL Normal 12.0-17.0 [facility] Comment on above: Performed By: #### 3 0738 ####[facility] [place] [address], [facility] IONIZED CALCIUM 1.17 mmol/L Normal 1.12-1.32 [facility] Comment on above: Performed By: #### 3 0738 ####[place] [address] [place] [address], [facility] Oxygen (Bld) [Partial pressure] 96.0 mm[Hg] Normal 80.0-105.0 The [facility] Comment on above: Performed By: #### 3 0738 ####[facility] [place] [address], [facility] PCO2 41.2 mmHg Normal 35.0-45.0 [facility] Comment on above: Performed By: #### 3 0738 ####[facility] [place] [address], [place] pH (Bld) 7.38 [pH] Normal 7.35-7.45 [facility] Comment on above: Performed By: #### 3 0738 ####[facility] [place] [address], [place] Potassium [Moles/Vol] 4.3 mmol/L Normal 3.5-4.9 [facility] Comment on above: Performed By: #### 3 0738 ####[facility] [place] [address], [place] Sodium [Moles/Vol] 139 mmol/L Normal 138-146 [facility] Comment on above: Performed By: #### 3 0738 ####[facility] [place] [address], [facility] PHOSPHORUS BLOODon Phosphate [Mass/Vol] 4.0 mg/dL Normal 2.5-5.0 [facility] Comment on above: Order Comment: No: D o not add to previous draw Performed By: #### 1 0070, 06582, 33950 ####[facility] [place] [address], [facility] Phosphate [Mass/Vol] 3.8 mg/dL Normal 2.5-5.0 [facility] Comment on above: Order Comment: No: D o not add to previous draw Performed By: #### 0 0071, 51266, 50331 ####[facility] [place] [address], [place] POC GLUCOSE LABon 04-08-2021 Glucose [Mass/Vol] 252 mg/dL High 70-100 [facility] Comment on above: Performed By: #### 8 5499 ####[facility] [place] [address], [place] Glucose [Mass/Vol] 240 mg/dL High 70-100 [facility] Comment on above: Performed By: #### 8 5499 ####[facility] [place] [address], [place] Glucose [Mass/Vol] 126 mg/dL High 70-100 [facility] Comment on above: Performed By: #### 8 5499 ####[facility] [place] [address], [place] Glucose [Mass/Vol] 178 mg/dL High 70-100 [facility] Comment on above: Performed By: #### 8 5499 ####[facility] [place] [address], [place] Glucose [Mass/Vol] 195 mg/dL High 70-100 [facility] Comment on above: Performed By: #### 8 5499 ####[facility] [place] [address], [place] Glucose [Mass/Vol] 113 mg/dL High 70-100 [facility] Comment on above: Performed By: #### 8 5499 ####[facility] [place] [address], [place] Glucose [Mass/Vol] 118 mg/dL High 70-100 [facility] Comment on above: Performed By: #### 8 5499 ####[facility] [place] [address], [place] PORTABLE CHEST 1 VIEWon 03-24 PORTABLE CHEST 1 VIEW Normal The [facility] Comment on above: Order Comment: Check Chest Tube Position, ON ARRIVAL TO CVU PROTHROMBIN TIMEon 08-16-202 1 INR Coag (PPP) [Relative time] 1.20 {INR} High 0.91-1.16 [facility] Comment on above: Order Comment: No: D o not add to previous draw Result Comment: [facility] P RECOMMENDED INR FOR WARFARIN THERAPY CONDITION INRPROPHYLAXIS OF VENOUS THROMBOSIS 2-3(HIGH-RISK SURGERY)TREATMENT OF VENOUS THROMBOSIS 2-3TREATMENT OF PULMONARY EMBOLISM 2-3PREVENTION OF SYSTEMIC EMBOLISM: 2-3 ACUTE MYOCARDIAL INFARCTION TISSUE HEART VALVES VALVULAR HEART DISEASE ATRIAL FIBRILLATION RECURRENT SYSTEMIC EMBOLISMMECHANICAL HEART VALVE 2.5-3.5 FROM: ORAL ANTICOAGULANTS. MECHANISM OF ACTION, CLINICALEFFECTIVENESS, AND OPTIMAL THERAPEUTIC RANGE. [id number];108:231S-246S. Performed By: #### 5 6101, 69469 ####[facility] [facility] [place] [address], [facility] PT Coag (PPP) [Time] 15.2 s High 12.3-14.8 [facility] Comment on above: Order Comment: No: D o not add to previous draw Result Comment: ALL RESULTS MUST BE INTERPRETED WITH RESPECT TO BLOOD DRAWING ARTIFACTOR DILUTION ERROR OF ANTICOAGULANT AT THE TIME OF SAMPLING. Performed By: #### 5 6101, 83511 ####[facility] [facility] [place] [address], [facility] INR Coag (PPP) [Relative time] 1.23 {INR} High 0.91-1.16 [facility] Comment on above: Result Comment: [facility] P RECOMMENDED INR FOR WARFARIN THERAPY CONDITION INRPROPHYLAXIS OF VENOUS THROMBOSIS 2-3(HIGH-RISK SURGERY)TREATMENT OF VENOUS THROMBOSIS 2-3TREATMENT OF PULMONARY EMBOLISM 2-3PREVENTION OF SYSTEMIC EMBOLISM: 2-3 ACUTE MYOCARDIAL INFARCTION TISSUE HEART VALVES VALVULAR HEART DISEASE ATRIAL FIBRILLATION RECURRENT SYSTEMIC EMBOLISMMECHANICAL HEART VALVE 2.5-3.5 FROM: ORAL ANTICOAGULANTS. MECHANISM OF ACTION, CLINICALEFFECTIVENESS, AND OPTIMAL THERAPEUTIC RANGE. [id number];108:231S-246S. Performed By: #### 5 7307, 31951, 91333 ####[facility] PT Coag (PPP) [Time] 15.5 s High 12.3-14.8 [facility] Comment on above: Result Comment: ALL RESULTS MUST BE INTERPRETED WITH RESPECT TO BLOOD DRAWING ARTIFACTOR DILUTION ERROR OF ANTICOAGULANT AT THE TIME OF SAMPLING. Performed By: #### 5 7307, 57681, 64578 ####[facility] [facility].[address] INR Coag (PPP) [Relative time] 1.05 {INR} Normal 0.91-1.16 [facility] Comment on above: Order Comment: No: [...] OF ACTION, CLINICALEFFECTIVENESS, AND OPTIMAL THERAPEUTIC RANGE. [id number];108:231S-246S. Performed By: #### 5 6101 ####[facility] PT Coag (PPP) [Time] 13.7 s Normal 12.3-14.8 [facility] Comment on above: Order Comment: No: D o not add to previous draw Result Comment: ALL RESULTS MUST BE INTERPRETED WITH RESPECT TO BLOOD DRAWING ARTIFACTOR DILUTION ERROR OF ANTICOAGULANT AT THE TIME OF SAMPLING. Performed By: #### 5 6101 ####[facility] TROPONIN-Ion 04-08-2021 Troponin I.cardiac [Mass/Vol] 0.34 ng/mL Critically high 0.00-0.04 [facility] Comment on above: Order Comment: No: D o not add to previous draw Result Comment: M-TR OPONIN INITIAL CRITICAL HIGH; RESPUN AND RETESTEDM-CRITICAL RESULT(S) REVIEWED, CALLED TO AND READ BACK BY Kleber TRAN at 2225.REFERENCE RANGES: 0.00 - 0.04 ng/ml NORMAL 0.05 - 0.50 ng/ml INDETERMINATE > 0.50 ng/ml CONSISTENT WITH AN M.I. Performed By: #### 3 5200 ####[facility] POC GLUCOSE LABon 04-07-2021 Glucose [Mass/Vol] 121 mg/dL High 70-100 [facility] Comment on above: Performed By: #### 8 5499 ####[facility] [facility] [place] [address], [facility] Glucose [Mass/Vol] 165 mg/dL High 70-100 [facility] Comment on above: Performed By: #### 8 5499 ####[facility] [facility].[place] [id number], [facility] Glucose [Mass/Vol] 109 mg/dL High 70-100 [facility] Comment on above: Performed By: #### 8 5499 ####[facility] POC SARS COV2 ANTIGEN NEGATI VEon 04-07-2021 POC SARS COV2 ANTIGEN NEG Negative Normal NEGATIVE [facility] Comment on above: Result Comment: Nega [...] of clinicalsigns and symptoms consistent with COVID-19.The [employer] COVID-19 Ag Card is a lateral flow immunoassay intended forthe qualitative detection of nucleocapsid protein antigen [id number] in direct nasal swabs from individuals within [...] Certificate ofAccreditation. Performed By: #### 3 1977 ####[facility] [place], [place] [address] Pulmonary Functionon 021 Pulmonary Function Normal [facility] RBC'S 4 UNITSon 04-07-2021 CROSSMATCH INTERP 1 COMP Normal [facility] Comment on above: Performed By: #### 8 6004 ####[facility] [place] [address], [facility] CROSSMATCH INTERP 2 COMP Normal [facility] Comment on above: Performed By: #### 8 6004 ####[facility] [place] [address], [facility] CROSSMATCH INTERP 3 COMP Normal [facility] Comment on above: Performed By: #### 8 6004 ####[facility] [place] [address], [facility] CROSSMATCH INTERP 4 COMP Normal [facility] Comment on above: Performed By: #### 8 6004 ####[facility] [place] [address], [facility] PRODUCT CODE 1 E0336 Normal The [facility] Comment on above: Performed By: #### 8 6004 ####[facility] [place] [address], [facility] PRODUCT CODE 2 E0336 Normal The [facility] Comment on above: Performed By: #### 8 6004 ####[facility] [place] [address], [place] PRODUCT CODE 3 E0336 Normal The [facility] Comment on above: Performed By: #### 8 6004 ####[facility] [place] [address], [place] PRODUCT CODE 4 E0336 Normal The [facility] Comment on above: Performed By: #### 8 6004 ####[facility] [facility] [place] [address], [facility] PRODUCT STATUS 1 RE Normal The [facility] Comment on above: Result Comment: Resu lt changed by IF on 04/08/2021 12:37. The previous value was XM.Result changed by IF on 04/08/2021 16:53. The previous value was IS.Result changed by IF on 04/11/2021 11:14. The previous value was XM. Performed By: #### 8 6004 ####[facility] [facility], [place] [address] PRODUCT STATUS 2 RE Normal The [facility] Comment on above: Result Comment: Resu lt changed by IF on 04/08/2021 12:37. The previous value was XM.Result changed by IF on 04/08/2021 16:53. The previous value was IS.Result changed by IF on 04/11/2021 11:14. The previous value was XM. Performed By: #### 8 6004 ####[facility] [facility] [place] [address], [facility] PRODUCT STATUS 3 RE Normal The [facility] Comment on above: Result Comment: Resu lt changed by IF on 04/08/2021 12:37. The previous value was XM.Result changed by IF on 04/08/2021 16:53. The previous value was IS.Result changed by IF on 04/11/2021 11:14. The previous value was XM. Performed By: #### 8 6004 ####[facility] [facility] [place] [address], [facility] PRODUCT STATUS 4 RE Normal The [facility] Comment on above: Result Comment: Resu lt changed by IF on 04/08/2021 12:37. The previous value was XM.Result changed by IF on 04/08/2021 16:53. The previous value was IS.Result changed by IF on 04/11/2021 11:14. The previous value was XM. Performed By: #### 8 6004 ####[facility] [facility] [place] [id number] [place] [address] UNIT ABO 1 O Normal The [facility] Comment on above: Performed By: #### 8 6004 ####[facility], [place] [address] [place] [address] UNIT ABO 2 O Normal [facility] Comment on above: Performed By: #### 8 6004 ####[facility], [place] [address] [place] [address] UNIT ABO 3 O Normal [facility] Comment on above: Performed By: #### 8 6004 ####[facility] [facility] [place] [address] [place] [address] UNIT ABO 4 O Normal [facility] Comment on above: Performed By: #### 8 6004 ####[facility] [facility], [place] [address] [place] [address] UNIT ID 1 [id number] Normal The [facility] Comment on above: Performed By: #### 8 6004 ####[facility] [facility].[address] UNIT ID 2 [id number] Normal The [facility] Comment on above: Performed By: #### 8 6004 ####[facility] [facility] [place] [address], [facility] UNIT ID 3 [id number] Normal The [facility] Comment on above: Performed By: #### 8 6004 ####[facility] [facility] [place] [address], [facility] UNIT ID 4 [id number] Normal The [facility] Comment on above: Performed By: #### 8 6004 ####[facility] [place] [address], [facility] UNIT RH 1 Positive Normal [facility] Comment on above: Performed By: #### 8 6004 ####[facility] [place] [address], [facility] UNIT RH 2 Positive Normal [facility] Comment on above: Performed By: #### 8 6004 ####[facility] [place] [address], [facility] UNIT RH 3 Positive Normal [facility] Comment on above: Performed By: #### 8 6004 ####[facility] [place] [address], [facility] UNIT RH 4 Positive Normal [facility] Comment on above: Performed By: #### 8 6004 ####[facility] [place] [address], [facility] TYPE AND SCREENon 04-07-2021 ABO INTERPRETATION O Normal The [facility] Comment on above: Performed By: #### 6 2586 ####[facility] [place] [address], [facility] RH INTERPRETATION Positive Normal The [facility] Comment on above: Performed By: #### 6 2586 ####[facility], [place] [address] *MRSA/MSSA DNA NASALon 04-06 *MRSA/MSSA DNA NASAL Clinical Report: (D) Specimen: NASAL SWAB Collected: 04/06/2021 12:43 Status: Final Last Updated: 04/06/2021 16:01 MSSA DNA (Final) Negative MRSA DNA (Final) Negative Normal [facility] Comment on above: Performed By: #### 3 1595 ####[facility] [place] [address], [facility] BASIC METABOLIC PANELon 08- Calcium [Mass/Vol] 8.9 mg/dL Normal 8.6-10.3 The [facility] Comment on above: Order Comment: No: D o not add to previous draw Performed By: #### 1 0, 32119 ####[facility] [place] [address], [facility] Chloride [Moles/Vol] 103 mmol/L Normal 98-107 [facility] Comment on above: Order Comment: No: D o not add to previous draw Performed By: #### 1 69, 24739 ####[facility] [place] [address], [facility] CO2 [Moles/Vol] 26 mmol/L Normal 21-31 The [facility] Comment on above: Order Comment: No: D o not add to previous draw Performed By: #### 1 69, 17441 ####[facility] [place] [address], [facility] Creatinine [Mass/Vol] 0.78 mg/dL Normal 0.70-1.30 [facility] Comment on above: Order Comment: No: D o not add to previous draw Performed By: #### 1 69, 83261 ####[facility] [place] [address], [facility] GFR/1.73 sq M.predicted among blacks MDRD (S/P/Bld) [Vol rate/Area] mL/min/{1.73_m2} Normal >60 [facility] Comment on above: Order Comment: No: D o not add to previous draw Result Comment: Calc ulation may not be valid for patients over 70 years Performed By: #### 1 69, 75185 ####[facility] [place] [address], [facility] GFR/1.73 sq M.predicted among non-blacks MDRD (S/P/Bld) [Vol rate/Area] mL/min/{1.73_m2} Normal >60 [facility] Comment on above: Order Comment: No: D o not add to previous draw Result Comment: Calc ulation may not be valid for patients over 70 years Performed By: #### 1 69, 76507 ####[facility] [facility] [place] [address], [facility] Glucose [Mass/Vol] 101 mg/dL High 70-100 The [facility] Comment on above: Order Comment: No: D o not add to previous draw Performed By: #### 1 69, 08322 ####[facility] [facility] [place] [address], [facility] Potassium [Moles/Vol] 4.1 mmol/L Normal 3.5-5.1 [facility] Comment on above: Order Comment: No: D o not add to previous draw Performed By: #### 1 69, 40889 ####[place] [address] [facility] [place] [address], [facility] Sodium [Moles/Vol] 134 mmol/L Low 136-145 [facility] Comment on above: Order Comment: No: D o not add to previous draw Performed By: #### 1 69, 54426 ####[place] [address] [facility].[address] Urea nitrogen [Mass/Vol] 20 mg/dL Normal 7-25 [facility] Comment on above: Order Comment: No: D o not add to previous draw Performed By: #### 1 69, 90935 ####[facility] [facility].[address] CBC COMPLETE BLOOD COUNTon 0 - Erythrocyte distribution width (RBC) [Ratio] 15.3 % High 11.5-15.0 [facility] Comment on above: Order Comment: No: D o not add to previous draw Performed By: #### 5 0608 ####[facility] [facility] [place] [address], [facility] Hematocrit (Bld) [Volume fraction] 43.0 % Normal 39.0-50.0 [facility] Comment on above: Order Comment: No: D o not add to previous draw Performed By: #### 5 0608 ####[facility] [facility].[address] Hemoglobin (Bld) [Mass/Vol] 14.3 g/dL Normal 13.0-17.0 [facility] Comment on above: Order Comment: No: D o not add to previous draw Performed By: #### 5 0608 ####[facility] [facility].[address] MCH (RBC) [Entitic mass] 30.6 pg Normal 27.0-33.0 [facility] Comment on above: Order Comment: No: D o not add to previous draw Performed By: #### 5 [id number] ####[facility] MCHC (RBC) [Mass/Vol] 33.3 g/dL Normal 32.0-35.0 [facility] Comment on above: Order Comment: No: D o not add to previous draw Performed By: #### 5 [id number] ####[facility] [facility].[address] MCV (RBC) [Entitic vol] 92.1 fL Normal 82.0-98.0 [facility] Comment on above: Order Comment: No: D o not add to previous draw Performed By: #### 5 [id number] ####[facility] [facility].[address] Nucleated RBC/100 WBC (Bld) [Ratio] 0 % Normal 0-0 [facility] Comment on above: Order Comment: No: D o not add to previous draw Performed By: #### 5 0608 ####[facility] [place] [address] PLAT CNT 238 10*3/uL Normal 150-400 [facility] Comment on above: Order Comment: No: D o not add to previous draw Performed By: #### 5 0608 ####[facility] [place] [address], [place] RBC (Bld) [#/Vol] 4.67 10*6/uL Normal 4.20-5.70 [facility] Comment on above: Order Comment: No: D o not add to previous draw Performed By: #### 5 0608 ####[facility] [place] [address], [place] WBC (Bld) [#/Vol] 6.86 10*3/uL Normal 4.00-10.60 [facility] Comment on above: Order Comment: No: D o not add to previous draw Performed By: #### 5 0608 ####[facility] [place] [address], [place] MAGNESIUM BLOODon 04-06-2021 Magnesium [Mass/Vol] 2.0 mg/dL Normal 1.9-2.7 [facility] Comment on above: Order Comment: No: D o not add to previous draw Performed By: #### 1 0070, [id number] ####[facility] [place] [address], [place] POC GLUCOSE LABon 04-06-2021 Glucose [Mass/Vol] 118 mg/dL High 70-100 [facility] Comment on above: Performed By: #### 8 [id number] ####[facility] [place] [address], [place] Glucose [Mass/Vol] 108 mg/dL High 70-100 [facility] Comment on above: Performed By: #### 8 [id number] ####[facility] [place] [address], [place] Glucose [Mass/Vol] 114 mg/dL High 70-100 [facility] Comment on above: Performed By: #### 8 [id number] ####[facility] [facility] [place] [address], [facility] Glucose [Mass/Vol] 126 mg/dL High 70-100 [facility] Comment on above: Performed By: #### 8 [id number] ####[facility] [facility] [place] [address], [facility] URINALYSIS REFLEXon 04-06-20 21 Appearance (U) CLEAR Normal CLEAR [facility] Comment on above: Order Comment: No: D o not add to previous drawCriteria for reflexing a culture was not met. Please call the lab [id number] within 24 hours of collection time if culture is needed Performed By: #### 3 0965 ####[facility] [facility] [place] [address], [facility] Bilirubin Ql (U) Negative Normal NEGATIVE [facility] Comment on above: Order Comment: No: D o not add to previous drawCriteria for reflexing a culture was not met. Please call the lab [id number] within 24 hours of collection time if culture is needed Performed By: #### 3 0965 ####[facility] [place] [address], [facility] Color (U) YELLOW Normal YELLOW [facility] Comment on above: Order Comment: No: D o not add to previous drawCriteria for reflexing a culture was not met. Please call the lab [id number] within 24 hours of collection time if culture is needed Performed By: #### 3 0965 ####[facility] [facility] [place] [address], [facility] Glucose Ql (U) Negative Normal NEGATIVE [facility] Comment on above: Order Comment: No: D o not add to previous drawCriteria for reflexing a culture was not met. Please call the lab [id number] within 24 hours of collection time if culture is needed Performed By: #### 3 0965 ####[facility] [facility] [place] [address], [facility] Hemoglobin Ql (U) Negative Normal NEGATIVE The [facility] Comment on above: Order Comment: No: D o not add to previous drawCriteria for reflexing a culture was not met. Please call the lab [id number] within 24 hours of collection time if culture is needed Performed By: #### 3 0965 ####[facility] [facility] [place] [address], [facility] KETONE Negative Normal NEGATIVE [facility] Comment on above: Order Comment: No: D o not add to previous drawCriteria for reflexing a culture was not met. Please call the lab [id number] within 24 hours of collection time if culture is needed Performed By: #### 3 0965 ####[facility] [place] [address] LEUK JESS Negative Normal NEGATIVE [facility] Comment on above: Order Comment: No: D o not add to previous drawCriteria for reflexing a culture was not met. Please call the lab [id number] within 24 hours of collection time if culture is needed Performed By: #### 3 0965 ####[facility] MICRO NOT DONE Normal [facility] Comment on above: Order Comment: No: D o not add to previous drawCriteria for reflexing a culture was not met. Please call the lab [id number] within 24 hours of collection time if culture is needed Result Comment: Micr oscopics not performed on urines withnegative chemical reactions unless requested in original order Performed By: #### 3 0965 ####[place] [address], [facility] Nitrite Ql (U) Negative Normal NEGATIVE [facility] Comment on above: Order Comment: No: D o not add to previous drawCriteria for reflexing a culture was not met. Please call the lab [id number] within 24 hours of collection time if culture is needed Performed By: #### 3 0965 ####[facility] pH (U) 6.0 [pH] Normal 5.0-8.0 [facility] Comment on above: Order Comment: No: D o not add to previous drawCriteria for reflexing a culture was not met. Please call the lab [id number] within 24 hours of collection time if culture is needed Performed By: #### 3 0965 ####[facility] Protein Ql (U) Negative Normal NEGATIVE [facility] Comment on above: Order Comment: No: D o not add to previous drawCriteria for reflexing a culture was not met. Please call the lab [phone] within 24 hours of collection time if culture is needed Performed By: #### 3 0965 ####[facility] SPEC GRAV 1.019 Normal 1.015-1.020 [facility] Comment on above: Order Comment: No: D o not add to previous drawCriteria for reflexing a culture was not met. Please call the lab [id number] within 24 hours of collection time if culture is needed Performed By: #### 3 0965 ####[facility] [place] [address] Vital Signs Date Time Vital Sign Value Performing Clinician Faci lity 09-27-2024 14:06-0500 Body height 179.1 cm Teressa Sierra [employer] Work Phone: [facility] 09-27-2024 14:06-0500 Body mass index (BMI) [Ratio] 45.83 kg/m2 Teressa Sierra [employer] DEVELOPER Work Phone: [facility] 09-27-2024 14:06-0500 Body temperature 97.81 [degF] Teressa Sierra [employer] DEVELOPER Work Phone: [facility] 09-27-2024 14:06-0500 Body weight 146.97 kg Teressa Aichholz [employer] DEVELOPER Work Phone: [facility] 09-27-2024 14:06-0500 Diastolic blood pressure 74 mm[Hg] Teressa Aichholz [employer] DEVELOPER Work Phone: [facility] 09-27-2024 14:06-0500 Heart rate 83 /min Teressa Aichholz [employer]ELOPER Work Phone: [facility] 09-27-2024 14:06-0500 Respiratory rate 24 /min Teressa Aichholz [employer]ELOPER Work Phone: [facility] 09-27-2024 14:06-0500 SaO2% (BldA) [Mass fraction] 92 % Teressa Aichholz [employer] DEVELOPER Work Phone: [facility] 09-27-2024 14:06-0500 Systolic blood pressure 132 mm[Hg] Teressa Aichholz [employer] DATA DEVELOPER Work Phone: [facility] 06-01-2024 15:17-0400 Body height 179.1 cm Teressa Aichholz [employer] DEVELOPER Work Phone: [facility] 06-01-2024 15:17-0400 Body mass index (BMI) [Ratio] 45.52 kg/m2 Teressa Aichholz [employer] DEVELOPER Work Phone: [facility] 06-01-2024 15:17-0400 Body temperature 98.49 [degF] Teressa Aichholz [employer] DATA DEVELOPER Work Phone: [facility] 06-01-2024 15:17-0400 Body weight 145.97 kg Teressa Aichholz [employer] DEVELOPER Work Phone: [facility] 06-01-2024 15:17-0400 Diastolic blood pressure 68 mm[Hg] Teressa Aichholz [employer] DEVELOPER Work Phone: [facility] 06-01-2024 15:17-0400 Heart rate 62 /min Teressa Aichholz [employer] DEVELOPER Work Phone: [facility] 06-01-2024 15:17-0400 Respiratory rate 18 /min Teressa Samanthajoeangel [employer]ELOPER Work Phone: [facility] 06-01-2024 15:17-0400 SaO2% (BldA) [Mass fraction] 95 % Teressa Samanthajoeangel [employer] DATA DEVELOPER Work Phone: [facility] 06-01-2024 15:17-0400 Systolic blood pressure 122 mm[Hg] Teressa Mariela [employer] DATA DEVELOPER Work Phone: [facility] Healthcare Encounters Encounter Date Encounter Type Care Provider Facility Start: 10-11-2024 End: 10-11-2024 Clinisync Result Encounter Generic External Data Provider [facility] External Department Unsolicited Start: 10-11-2024 End: 10-11-2024 Clinisync Result Encounter Generic External Data Provider [facility] External Department Unsolicited Start: 10-04-2024 End: 10-04-2024 Refill Teressa Sierra [employer] DEVELOPER Work Phone: [facility] Comment on above: Type 2 diabetes jennie itus without complications ([facility]) Start: 10-03-2024 End: 10-03-2024 [facility] Start: 09-27-2024 End: 09-27-2024 Bamboo flowsheet Teressa Sierra [employer] DEVELOPER Work Phone: [facility] Start: 09-27-2024 End: 09-27-2024 Bamboo flowsheet Teressa Mariela [employer] DEVELOPER Work Phone: [facility] Start: 09-27-2024 End: 09-27-2024 Office outpatient visit 25 minutes Teressa Sierra [employer]ELOPER Work Phone: [facility] Comment on above: Obstructive sleep ap rohit syndrome (Primary Dx); Type 2 diabetes mellitus with diabetic chronic kidney disease ([facility]); 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 (CODE) ([facility]); Morbid (severe) obesity due to excess calories ([facility]); Body mass index (BMI) 45.0-49.9, adult ([facility]); Type 2 diabetes mellitus with diabetic peripheral angiopathy without gangrene ([facility]); Other ventricular tachycardia ([facility]); Chronic obstructive pulmonary disease, unspecified ([facility]); Chronic diastolic (congestive) heart failure ([facility]); 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 ([facility]); Essential hypertension; Chronic kidney disease, stage 3a ([facility]) ([facility]); Bilateral lower extremity edema; Stasis edema with ulcer of both lower extremities ([facility]); Mixed hyperlipidemia ([facility]); Stasis dermatitis 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 hypertension ([facility]); 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 ([facility]) Start: 09-27-2024 End: 09-27-2024 ambulatory TERESSA AICHHOLZ Not Available Start: 09-10-2024 End: 09-11-2024 Refill Teressa Aichholz [employer]ELOPER Work Phone: [facility] Comment on above: Localized edema Start: 09-08-2024 End: 09-08-2024 Refill Teressa Aichholz [employer] DEVELOPER Work Phone: [facility] Comment on above: Type 2 diabetes jennie itus without complication, without long- term current use of insulin ([facility]) Start: 08-04-2024 End: 08-04-2024 Clinisync Result Encounter Teressa Aichholz [employer] DEVELOPER Work Phone: [facility] External Department Unsolicited Start: 08-04-2024 End: 08-04-2024 Clinisync Result Encounter Teressa Aichholz [employer] DEVELOPER Work Phone: [facility] External Department Unsolicited Start: 07-13-2024 End: 07-13-2024 Refill Teressa Aichholz [employer] DEVELOPER Work Phone: [facility] Comment on above: Anemia, unspecified Start: 06-20-2024 End: 06-20-2024 Orders Only Teressa Aichholz [employer] DATA DEVELOPER Work Phone: [facility] Comment on above: Chronic kidney disea se, stage 3a (HCC) (CMS/HCC) (Primary Dx) Start: 06-20-2024 End: 06-21-2024 Refill Teressa Sierra NP Work Phone: [facility] Comment on above: Type 2 diabetes jennie itus without complications (CMS/HCC) Start: 06-17-2024 End: 06-17-2024 Refill Teressa Sierra [employer] DATA DEVELOPER Work Phone: [facility] Comment on above: Bilateral primary os teoarthritis of knee; 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 (CMS/HCC) Start: 06-16-2024 End: 06-16-2024 Clinisync Result Encounter Teressa Sierra NP Work Phone: [facility] External Department Unsolicited Start: 06-16-2024 End: 06-16-2024 Clinisync Result Encounter Teressa Sierra NP Work Phone: [facility] External Department Unsolicited Start: 06-13-2024 End: 06-13-2024 Refill Teressa Sierra [employer] DEVELOPER Work Phone: [facility] Comment on above: Coronary artery dise ase involving quechan coronary artery 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 pectoris (CMS/HCC) (Primary Dx); 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 (CMS/HCC); Mixed hyperlipidemia (CMS/HCC) Start: 06-01-2024 End: 06-01-2024 Office outpatient visit 25 minutes Teressa Sierra NP Work Phone: [facility] Comment on above: Type 2 diabetes jennie itus without complication, without long- term current use of insulin (CMS/HCC) (Primary Dx); Chronic kidney disease, stage 3a (HCC) (CMS/HCC); Mixed hyperlipidemia (CMS/HCC); 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 (CMS/HCC); Essential hypertension; Prostate cancer screening; Obstructive sleep apnea syndrome; Chronic obstructive pulmonary disease, unspecified COPD type (CMS/HCC); Venous stasis of both lower extremities; Morbid (severe) obesity due to excess calories (CMS/HCC); Body mass index (BMI) 45.0-49.9, adult (CMS/HCC) Start: 06-01-2024 End: 06-01-2024 ambulatory TERESSA AICHHOLZ Not Available Start: 06-01-2024 End: 06-01-2024 Bamboo flowsheet Teressa Aicbeauz [employer] DATA DEVELOPER Work Phone: [facility] Start: 06-01-2024 End: 06-01-2024 Bamboo flowsheet Teressa Aichholz [employer] DATA DEVELOPER Work Phone: [facility] Start: 03-14-2024 End: 03-14-2024 ambulatory TERESSA AICHHOLZ Not Available Start: 03-09-2024 End: 03-09-2024 ambulatory [facility] Start: 12-17-2023 End: 12-17-2023 ambulatory [facility] Start: 12-14-2023 End: 12-14-2023 ambulatory TERESSA AICHHOLZ Not Available Start: 12-14-2023 Patient encounter procedure Teressa Aichholz [employer] DATA DEVELOPER Work Phone: [facility] Start: 05-18-2023 End: 05-18-2023 ambulatory Mal Barnes Facility:[facility] Start: 09-03-2022 End: 09-03-2022 ambulatory Moshe Garcia Other [employer] Other Start: 09-03-2022 Office outpatient ne w 45 minutes Moshe Garcia [facility] Start: 08-18-2022 End: 08-20-2022 Evaluation [...] 06-02-2021 Evaluation and management of inpatient MAL MOLLY Facility:[facility] Procedures Date Procedure Procedure Detail Performing Clinician Start: 10-11-2024 ALL BASIC METABOLIC PANEL Generic External Data Provider Start: 08-04-2024 ALL CBC WITH AUTO DIFF Teressa Aichholz [employer] DATA DEVELOPER Work Phone: Start: 06-16-2024 ALL CBC WITH AUTO DIFF Teressa Aichholz [employer] DATA DEVELOPER Work Phone: Start: 07-03-2021 End: 09-27-2024 History of coronary artery bypass grafting History of coronary artery bypass surgery Teressa Aichholz [employer] DATA DEVELOPER Work Phone: Start: 05-24-2021 Antibody screen MAL BARNES Comment on above: Performed By: #### 6 [id number] ####[facility] Start: 05-23-2021 EXCISION OF STERNUM, OPEN [...] on above: Performed By: #### 6 [id number] ####[facility]3000 [place] [address], [facility] Start: 05-16-2021 EXCISION OF CHEST SK IN, EXTERNAL APPROACH AKANKSHA UP Start: 05-16-2021 RESPIRATORY VENTILAT ION, LESS THAN 24 CONSECUTIVE HOURS GUDELIA BARNES Start: 05-15-2021 Antibody screen MAL BARNES Comment on above: Performed By: #### 6 [id number] ####[facility] Start: 04-07-2021 Antibody screen MAL BARNES Comment on above: Performed By: #### 6 [id number] ####[facility] [facility], [place] [id number] [place] [address] Plan of Treatment Date Care Activity Detail Author Start: 08-24-2025 Glaucoma screening Diabetes: R etinopathy Screening [facility] Start: 06-16-2025 Urine screening for protein Diabetes: Urine Protein Screening [facility] Start: 12-19-2024 End: 12-19-2024 Patient encounter procedure 12/19/2024 4:30 PM EDT Office Visit [facility] [address] [place] [address] Teressa Sierra NP [address] [place] [phone] [facility] Start: 12-15-2024 Hemoglobin A1c measurement Diabetes: Hemoglobin A1C [facility] Start: 12-13-2024 Medicare Annual Well ness (AWV) Medicare Annual Wellness (AWV) [facility] Start: 09-27-2024 End: 09-27-2024 Patient encounter procedure 09/27/2024 2:00 PM EST Office Visit [facility] [address] [place] [address] Teressa Sierra NP [address] [place] [phone] Obstructive sleep apnea syndrome (Primary Dx); Type 2 diabetes mellitus with diabetic chronic kidney disease ([facility]); 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 (CODE) ([facility]); Morbid (severe) obesity due to excess calories (CMS/HCC); Body mass index (BMI) 45.0-49.9, adult (CMS/HCC); Type 2 diabetes mellitus with diabetic peripheral angiopathy without gangrene (CMS/HCC); Other ventricular tachycardia (CMS/HCC); Chronic obstructive pulmonary disease, unspecified (CMS/HCC); Chronic diastolic (congestive) heart failure (CMS/HCC); 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 (CODE) (CMS/HCC); Morbid (severe) obesity due to excess calories (CMS/HCC); Body mass index (BMI) 45.0-49.9, adult (CMS/HCC); Type 2 diabetes mellitus with diabetic peripheral angiopathy without gangrene (CMS/HCC); Other ventricular tachycardia (CMS/HCC); Chronic obstructive pulmonary disease, unspecified (CMS/HCC); Chronic diastolic (congestive) heart failure (CMS/HCC); 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 Start: 09-09-2024 Pneumococcal Vaccine : 65+ Years (1 of 2 - PCV) Pneumococcal Vaccine: 65+ Years (1 of 2 - PCV) [facility] Comment on above: Postponed from 05/11 (Patient Refused) Start: 09-05-2024 End: 09-05-2024 Patient encounter procedure 09/05/2024 2:00 PM EST Office Visit [facility] [address] [place] [phone] Teressa Sierra, [place] [address] [place] [phone] [facility] Start: 07-21-2024 End: 06-20-2025 CBC W Auto Differential panel - Blood CBC and differential Lab Routine Chronic kidney disease, stage 3a (HCC) (CMS/HCC) Expected: 07/21/2024 (Approximate), Expires: 06/20/2025 [facility] Work Phone: Comment on above: Expected: 07/21/2024 (Approximate), Expires: 06/20/2025 Start: 07-21-2024 End: 06-20-2025 Comprehensive metabolic 2000 panel - Serum or Plasma Comprehensive metabolic panel Lab Routine Chronic kidney disease, stage 3a (HCC) (CMS/HCC) Expected: 07/21/2024 (Approximate), Expires: 06/20/2025 [facility] Comment on above: Expected: 07/21/2024 (Approximate), Expires: 06/20/2025 Start: 06-17-2024 Hemoglobin A1c measurement Diabetes: Hemoglobin A1C [facility] Start: 06-01-2024 End: 06-01-2024 Patient encounter procedure 06/01/2024 3:00 PM EDT Office Visit [facility] [address] [place] [phone] Teressa Sierra NP [address] [place] [phone] Chronic kidney disease, stage 3a (HCC) (CMS/HCC) (Primary Dx); Type 2 diabetes mellitus without complication, without long-term current use of insulin (CMS/HCC); Mixed hyperlipidemia (CMS/HCC); 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 (CMS/HCC); Essential hypertension; Prostate cancer screening [facility] Comment on above: Chronic kidney disea se, stage 3a (HCC) (CMS/HCC) (Primary Dx); Type 2 diabetes mellitus without complication, without long-term current use of insulin (CMS/HCC); Mixed hyperlipidemia (CMS/HCC); 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 (CMS/HCC); Essential hypertension; Prostate cancer screening Start: 06-01-2024 End: 06-01-2025 CBC W Auto Differential panel - Blood CBC and differential Lab Routine Chronic kidney disease, stage 3a (HCC) (CMS/HCC) Expected: 06/01/2024 (Approximate), Expires: 06/01/2025 [facility] Work Phone: Comment on above: Expected: 06/01/2024 (Approximate), Expires: 06/01/2025 Start: 06-01-2024 End: 06-01-2025 Comprehensive metabolic 2000 panel - Serum or Plasma Comprehensive metabolic panel Lab Routine Type 2 diabetes mellitus without complication, without long-term current use of insulin (CMS/HCC) Mixed hyperlipidemia (CMS/HCC) Essential hypertension Expected: 06/01/2024 (Approximate), Expires: 06/01/2025 [facility] Comment on above: Expected: 06/01/2024 (Approximate), Expires: 06/01/2025 Start: 06-01-2024 End: 06-01-2025 Hemoglobin A1c/Hemoglobin.total in Blood Hemoglobin A1c Lab Routine Type 2 diabetes mellitus without complication, without long-term current use of insulin (CMS/HCC) Expected: 06/01/2024 (Approximate), Expires: 06/01/2025 [facility] Comment on above: Expected: 06/01/2024 (Approximate), Expires: 06/01/2025 Start: 06-01-2024 End: 06-01-2025 Lipid 1996 panel - Serum or Plasma Lipid panel Lab Routine Type 2 diabetes mellitus without complication, without long-term current use of insulin (CMS/HCC) Mixed hyperlipidemia (CMS/HCC) Expected: 06/01/2024 (Approximate), Expires: 06/01/2025 [facility] Comment on above: Expected: 06/01/2024 (Approximate), Expires: 06/01/2025 Start: 06-01-2024 End: 06-01-2025 Microalbumin/Creatinine panel in random Urine Microalbumin / creatinine, urine ratio Lab Routine Type 2 diabetes mellitus without complication, without long-term current use of insulin ([facility]) Essential hypertension Expected: 06/01/2024 (Approximate), Expires: 06/01/2025 [facility] Comment on above: Expected: 06/01/2024 (Approximate), Expires: 06/01/2025 Start: 06-01-2024 End: 06-01-2025 Prostate specific Ag [Mass/volume] in Serum or Plasma PSA Lab Routine Prostate cancer screening Expected: 06/01/2024 (Approximate), Expires: 06/01/2025 [facility] Comment on above: Expected: 06/01/2024 (Approximate), Expires: 06/01/2025 Start: 06-01-2024 End: 06-01-2025 Urinalysis complete panel - Urine Urinalysis with reflex microscopic (clean catch) Lab Routine Type 2 diabetes mellitus without complication, without long-term current use of insulin ([facility]) Essential hypertension Expected: 06/01/2024 (Approximate), Expires: 06/01/2025 [facility] Comment on above: Expected: 06/01/2024 (Approximate), Expires: 06/01/2025 Start: 05-20-2024 Urine screening for protein Diabetes: Urine Protein Screening [facility] Start: 1951 Pneumococcal Vaccine : 65+ Years (1 of 2 - PCV) Pneumococcal Vaccine: 65+ Years (1 of 2 - PCV) [facility] Payers Date Payer Category Payer Medicare [id number] 2023 Medicare (Managed Care) [id number]. [id number] 2023 Unknown [employer] [id number] 2023-Present [address] [place] [id number] 2023 Unknown [id number] 2009 Medicare MEDICARE [id number] 1959 Private Health Insurance [id number] 1959 Self-pay 1944 Unknown [id number] .2.647 1944 Unknown [id number] [id number] .2.593 1944 Unknown [id number] 2.16.840.1.859771.3.579 .2.593 1944 Unknown [id number] 2.16.840.1.463070.3.579 .2.593 1944 Unknown [id number] 2.16.840.1.805758.3.579 .2.593 1944 Unknown [id number] 2.16.840.1.926462.3.579 .2.593 1944 Unknown [id number] 2.16.840.1.495766.3.579 .2.593 1944 Unknown [id number] 2.16.840.1.807919.3.579 .2.593 1944 Unknown [id number] 2.16.840.1.256770.3.579 .2.593 1944 Unknown [id number] 2.16.840.1.208092.3.579 .2.593 1944 Unknown [id number] 2.16.840.1.727077.3.579 .2.1259 1944 Unknown [id number] 2.16.840.1.491529.3.579 .2.9 1944 Unknown [id number] 2.16.840.1.755522.3.579 .2.9 1944 Unknown [id number] 2.16.840.1.174135.3.579 .2.1258 Unknown [id number] [id number] .2.531 Social History Date Type Detail Facility Start: 12-14-2023 End: 09-27-2024 Sex Assigned At [facility] Start: 09-07-2023 Tobacco smoking status HIIS Ex-smoke r [facility] History of tobacco use Current smoker [facility] History of tobacco use Cigarette Smoker [facility] Start: 09-07-2023 End: 12-14-2023 Cigarettes smoked current (pack per day) - Reported 0.8 [facility] Start: 09-07-2023 Tobacco use and exposure User of smokeless tobacco [facility] History of tobacco use Chews Tobacco [facility] Start: 03-14-2024 End: 09-27-2024 Alcoholic beverage intake Current drinker of alcohol (finding) [facility] Within the last year , have you been afraid of your partner or ex-partner? No [facility] Do you belong to any clubs or organizations such as baptism groups, unions, fraternal or athletic groups, or [...] Sex assigned at Not on file N [facility] Medical Equipment Procedure Code Equipment Code Equipment Origin al Text Equipment Identifier Dates [id number], [id number] Start: 06-21-2024 End: 10-04-2024 Clinical Notes 10-11-2020 to 10-03-2024 Teressa Sierra NP - 09/27/2024 4:23 PM ESTSAILAJAMBJAY ROBERTO - 09/27/2024 2:00 PM Jennifer Sierra NP - 09/27/2024 2:00 PM Jennifer Sierra NP - 09/27/2024 7:14 AM ESTPatient Instructions Note Date & Type Note Facility 10-03-2024 Note [place] [facility] - [facility] Subjective Arianne Mcqueen is a 79 y.o. year old male patient being seen for 6 mo follow up CAD, diastolic heart failure, and GROVES. Had stress test in February 2024 after last apt, and lipid profile in May 2024. He is not taking Jardiance due to high cost. Denies chest pain, but says his GROVES is a little better now than it was in February. 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 Ulcer of lower extremity ([facility]/HCC) Aortic ectasia, unspecified site ([facility]/HCC) Body mass index (BMI) 45.0-49.9, adult ([facility]) Chronic kidney disease, stage 3a ([facility]) Type 2 diabetes mellitus with diabetic chronic kidney disease ([facility]) Type 2 diabetes mellitus with diabetic peripheral angiopathy without gangrene ([facility]/HCC) 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 (CODE) ([facility]) Family History Problem Relation Name Age of [...] He was resuscitated and admitted to the [facility]. His initial investigation was negative. He [...] palpitations. He has no dizziness or lightheadedness. Visit of 04/30/2021: He is seen in [...] He is recovering from the bypass surgery. Update 04/15/2022: He is seen in follow-up. In August 2021 he was admitted to [facility] and then transferred to [facility] due to COVID infection and large pericardial [...] of Lasix over the past 5 days. Update 07/14/2022: He is seen in follow-up. At last visit of 04/14/2022 I added Jardiance 10 mg daily. A follow-up BMP showed worsening renal function so I had him stop furosemide. In addition I checked a echocardiogram to follow-up on his pericardial effusion and this showed trivial pericardial effusion with normal right-sided pressures and normal ventricular systolic function. Today he reports that he has been doing reasonably well. He has mild shortness of breath on moderate exertion. His blood pressure and heart rate are well controlled. Update 06/05/2023: He is seen in follow-up. after last visit with me I checked a stress test due to his shortness of breath symptoms and his history of coronary artery disease and not revascularize right coronary (more content not included)... 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 Arianne Mcqueen is a 79 y.o. male presents with chief complaint of Diabetes HPI: Diabetes He has type 2 diabetes mellitus. His disease course has been stable. Pertinent negatives for hypoglycemia include no dizziness, nervousness/anxiousness, seizures or tremors. Associated symptoms include fatigue. Pertinent negatives for diabetes include no chest pain, no polydipsia, no polyuria and no visual change. There are no hypoglycemic complications. Symptoms are stable. Diabetic complications include heart disease. Risk factors for coronary artery disease include diabetes mellitus, dyslipidemia, hypertension, male sex and obesity. Current diabetic treatment includes oral agent (dual therapy). He is compliant with treatment most of the time. An RUBINA inhibitor/angiotensin II receptor fitz is being taken. He does not see a supervisor nuclear medicine.Eye exam is not current. Hypertension This is a chronic problem. The current episode started more than 1 year ago. The problem is unchanged. The problem is controlled. Associated symptoms include peripheral edema and shortness of breath. Pertinent negatives include no anxiety, chest pain, malaise/fatigue or palpitations. There are no associated agents to hypertension. Risk factors for coronary artery disease include diabetes mellitus, dyslipidemia, male gender, obesity and sedentary lifestyle. SUBJECTIVE: MEDICATIONS: Current Outpatient Medications Medication Instructions albuterol HFA 90 mcg/act inhaler 2 puffs, Inhalation, Every 6 hours PRN amLODIPine (NORVASC) 5 mg, Oral, Daily aspirin (ASPIRIN) 81 mg, Oral, Daily atorvastatin (LIPITOR) 40 mg, Oral, Nightly, Take 40 mg by mouth at bedtime Blood Glucose Monitoring Suppl (True Metrix Air Glucose Meter) w/Device kit 1 each, Does not apply, Daily Blood Glucose Monitoring Suppl (True Metrix Go Glucose Meter) w/Device kit Does not apply carvedilol (COREG) 12.5 mg, Oral, 2 times daily with meals celecoxib (CELEBREX) 200 mg, Daily cephalexin (KEFLEX) 500 mg, 2 times daily Drug [place] [employer] Lancets 33G misc 1 each, Other, Daily ferrous sulfate (FEROSUL) 325 mg, Oral, Daily with breakfast glipiZIDE (GLUCOTROL) 2.5 mg, Oral, Daily isosorbide mononitrate ER (IMDUR) 30 mg, Oral, Daily, Do not crush or chew. Lancets 33G misc Does not apply Lancets 33G misc 1 each, Does not apply, Daily spironolactone (ALDACTONE) 25 mg, Oral, Daily TraZODone & Diet Manage Prod (TRAZAMINE PO) 50 mg, Oral Trelegy Ellipta 100-62.5-25 MCG/ACT aerosol powder 1 puff, Other, Daily True Metrix Blood Glucose Test test strip USE DIRECTED to test BLOOD SUGAR DAILY ALLERGIES: No Known Allergies REVIEW OF SYMPTOMS: Review of Systems Constitutional: Positive for fatigue. Negative for activity change, appetite change, malaise/fatigue and unexpected weight change. HENT: Negative for ear pain, nosebleeds, sneezing, trouble swallowing and voice change. Eyes: Negative for pain, discharge and visual disturbance. Respiratory: Positive for cough and shortness of breath. Negative for apnea, chest tightness and wheezing. Cardiovascular: Positive for leg swelling. Negative for chest pain and palpitations. Gastrointestinal: Negative for abdominal distention, blood in stool, constipation and diarrhea. Genitourinary: Negative for decreased urine volume, difficulty urinating, dysuria and hematuria. Musculoskeletal: Positive for arthralgias, back pain and myalgias. Skin: Negative for color change. Neurological: Negative for dizziness, tremors and seizures. Psychiatric/Behavioral: Negative for agitation, decreased concentration, hallucinations, self-injury and suicidal ideas. The patient is not nervous/anxious. Hematological: Negative for adenopathy. Does not bruise/bleed easily. Endocrine: Negative for cold intolerance, heat intolerance, polydipsia and polyuria. Allergic/Immunologic: Negative for environmental allergies and food allergies. PAST MEDICAL HISTORY Past Medical History: Diagnosis Date Anemia CAD (coronary artery disease) ([facility]) Constipation COPD (chronic obstructive pulmonary disease) ([facility]) Diabetes mellitus, type II ([facility]) Hearing decreased Heart disease Hip pain, right Hypercholesterolemia ([facility]/HCC) Hypertension ([facility]/HCC) Iron deficiency Myocardial infarction ([facility]/HCC) Osteoarthritis of both knees, unspecified osteoarthritis type [...] in his brother. OBJECTIVE: Visit Vitals BP 132/74 (BP Location: Left arm, Patient Position: Sitting, BP Cuff Size: Large adult) Pulse 83 Temp 97.8 F (Temporal) Resp 24 Ht 5' 10.5 Wt 324 lb SpO2 92% BMI 45.83 kg/m Smoking Status Former BSA 2.7 m Physical Exam Vitals and nursing note reviewed. Constitutional: Appearance: Normal appearance. He is obese. He is not ill-appearing or toxic-appearing. HENT: Head: Normocephalic. Right Ear: External ear [...] Effort: Pulmonary effort is normal. Breath sounds: Wheezing present. Abdominal: General: Bowel sounds are normal. Palpations: Abdomen is soft. Musculoskeletal: Cervical back: Neck supple. Right lower leg: Edema present. Left lower leg: Edema present. Comments: Wraps on both legs Lymphadenopathy: Cervical: No cervical adenopathy. Skin: General: Skin is warm and dry. Capillary Refill: Capillary refill takes 2 to 3 seconds. Neurological: General: No focal deficit present. Mental Status: He is alert. Psychiatric: Mood and Affect: Mood normal. Behavior: Behavior normal. Thought Content: Thought content normal. Judgment: Judgment normal. ASSESSMENT AND PLAN: Follow up in about 3 months (around 12/25/2024) for Recheck. Problem List Items Addressed This Visit Sleep apnea - Primary You have a diagnosis of obstructive sleep apnea. It is recommended that you wear your PAP device any time while in bed sleeping. Not using the PAP device can increase your risk of elevated/uncontrolled high blood pressure, atrial fibrillation, heart attack, stroke, or sudden . Compliance with PAP: not wearing machine, has an old machine, has not worked over a year How many hours of use per night: NA Do you feel more refreshed in the morning: NA Company that supplies your machine and tubing/filters etc: Doctor that manages your JOSUE: Dr Amado, has not seen in a year Chronic obstructive pulmonary disease, unspecified ([facility]) Current meds: trelegy inhaler and albuterol inhaler Follows with pulmonology Dr Woodruff Bilateral lower extremity edema Continue spironolactone script Elevate legs as much as possible Limit sodium and wear compression stockings Essential hypertension (Chronic) Please check blood pressure daily and record DASH diet Limit caffeine Take medication as directed Contact office if chest pain, pressure, dizziness, shortness of breath, swelling legs Recommend slow position changes Current meds: amlodipine, carvedilol, aldactone Chronic diastolic (congestive) heart failure ([facility]/HCC) Follows with [facility] Current meds: asa, statin, b fitz, imdur, aldactone, amlodipine 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 ([facility]) Current meds: asa, statin, b fitz, imdur, aldactone, Cardiology: [facility] Pat Morbid (severe) obesity due to excess calories ([facility]) Discussed with patient their BMI (actual, verses recommended). We have also discussed lifestyle modifications: attempts to perform physical activity as chronic conditions allow, also to monitor dietary intake: increasing protein/fruits/veggies and lowering carb intake (unless contraindicated). Limit sodas, juices, and sugary drinks. Activity difficult d/t multiple co morbidities Chronic kidney disease, stage 3a (HCC) ([facility]) Monitor labs yearly and prn Recommend adequate DM, HTN control, as well as heart failure Body mass index (BMI) 45.0-49.9, adult ([facility]) Other ventricular tachycardia ([facility]) Noted on holter in 2020 Cont per cardiology 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 (CODE) ([facility]) Mixed hyperlipidemia ([facility]) Continue statin Check labs yearly and prn dose chagnes Type 2 diabetes mellitus with diabetic chronic kidney disease ([facility]) Check blood sugars daily, notify if <70 [...] diet low in carbohydrates, and simple sugars. Current meds: asa,statin, glipizide, cannot afford jardiance A1c 5.4% in 06/16 Type 2 diabetes mellitus with diabetic peripheral angiopathy without gangrene (CMS/HCC) On asa, statin Stasis edema with ulcer of both lower extremities (CMS/HCC) Diuretics, elevation, compression Associated Problem(s): Mixed hyperlipidemia (CMS/HCC) Continue statin Check labs yearly and prn dose chagnes Associated Problem(s): Morbid (severe) obesity due to excess calories (CMS/HCC) Discussed with patient their BMI (actual, verses recommended). We have also discussed lifestyle modifications: attempts to perform physical activity as chronic conditions allow, also to monitor dietary intake: increasing protein/fruits/veggies and lowering carb intake (unless contraindicated). Limit sodas, juices, and sugary drinks. Activity difficult d/t multiple co morbidities Associated Problem(s): Type 2 diabetes mellitus with diabetic chronic kidney disease (CMS/HCC) Check blood sugars daily, notify if <70 [...] diet low in carbohydrates, and simple sugars. Current meds: asa,statin, glipizide, cannot afford jardiance A1c 5.4% in 06/16 Associated Problem(s): Stasis edema with ulcer of both lower extremities (CMS/HCC) Diuretics, elevation, compression Associated Problem(s): Bilateral lower extremity edema Continue spironolactone script Elevate legs as much as possible Limit sodium and wear compression stockings Associated Problem(s): Chronic kidney disease, stage 3a (HCC) (CMS/HCC) Monitor labs yearly and prn Recommend adequate DM, HTN control, as well as heart failure Associated Problem(s): Type 2 diabetes mellitus with diabetic peripheral angiopathy without gangrene (CMS/HCC) On asa, statin Associated Problem(s): Other ventricular tachycardia (CMS/HCC) Noted on holter in 2020 Cont per cardiology Associated Problem(s): Essential hypertension Please check blood pressure daily and record DASH diet Limit caffeine Take medication as directed Contact office if chest pain, pressure, dizziness, shortness of breath, swelling legs Recommend slow position changes Current meds: amlodipine, carvedilol, aldactone Associated Problem(s): Chronic diastolic (congestive) heart failure (CMS/HCC) Follows with [facility] Current meds: asa, statin, b fitz, imdur, aldactone, amlodipine Associated Problem(s): 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 (CMS/HCC) Current meds: asa, statin, b fitz, imdur, aldactone, Cardiology: [facility] Associated Problem(s): Chronic obstructive pulmonary disease, unspecified (CMS/HCC) Current meds: trelegy inhaler and albuterol inhaler Follows with pulmonology Dr Woodruff Associated Problem(s): Sleep apnea You have a diagnosis of obstructive sleep apnea. It is recommended that you wear your PAP device any time while in bed sleeping. Not using the PAP device can increase your risk of elevated/uncontrolled high blood pressure, atrial fibrillation, heart attack, stroke, or sudden . Compliance with PAP: not wearing machine, has an old machine, has not worked over a year How many hours of use per night: NA Do you feel more refreshed in the morning: NA Company that supplies your machine and tubing/filters etc: Doctor that manages your JOSUE: Dr Amado, has not seen in a year I did contact the [facility] Sleep lab ext [phone] to find out about scheduling the patient to see about an updated PAP machine: voicemail left at 16:20 on 09/27/24 documented in this encounter [facility] 09-27-2024 Instructions Teressa Sierra NP - 09/27/2024 2:00 PM EST Sleep apnea: I will call [facility] to see about getting you into see Dr Amado Wounds: continue with wound care and home health documented in this encounter [facility] 06-01-2024 History of Present illness Narrative Associated Problem(s): Diabetes mellitus, type II ([facility]) Cannot afford ozempic, although his sugars [...] sugars. Associated Problem(s): CAD (coronary artery disease) ([facility]) Continue current meds/dose Associated Problem(s): Essential hypertension At goal no dose changes Associated Problem(s): COPD (chronic obstructive pulmonary disease) ([facility]) Continue with dr woodruff Needs a refill of trelegy , he needs to contact them Associated Problem(s): Sleep apnea Non compliant with PAP use, machine is broke , difficulty finding DME who takes his insurance I did leave a VM on Sleep lab [facility] regarding this for them to assist Pt is seeing a bpo specialist for his legs. Pt had a [...] no compliance problems. Hypertensive end-organ damage includes CAD/ND and PVD. Diabetes He presents for his [...] being taken. He does not see a supervisor nuclear medicine.Eye exam is current. SUBJECTIVE: MEDICATIONS: Current Outpatient [...] Diagnosis Date Anemia CAD (coronary artery disease) (CMS/HCC) Constipation COPD (chronic obstructive pulmonary disease) (CMS/HCC) Diabetes mellitus, type II (CMS/HCC) Hearing decreased Heart disease Hip pain, right Hypercholesterolemia (CMS/HCC) Hypertension (CMS/HCC) Iron deficiency Myocardial infarction (CMS/HCC) Osteoarthritis of both knees, unspecified osteoarthritis type [...] to assist COPD (chronic obstructive pulmonary disease) ([facility]) Continue with dr woodruff Needs a refill of trelegy , he needs to contact them CAD (coronary artery disease) ([facility]) Continue current meds/dose Diabetes mellitus, type II ([facility]) - Primary Cannot afford ozempic, although [...] Morbid (severe) obesity due to excess calories ([facility]) Chronic kidney disease, stage 3a (HCC) ([facility]) Relevant Orders CBC and differential Body mass index (BMI) 45.0-49.9, adult ([facility]CC) Mixed hyperlipidemia ([facility] [facility]CC) Relevant Orders Comprehensive metabolic panel Lipid panel Prostate cancer screening Relevant Orders PSA documented in this encounter [facility] 03-09-2024 Note Cardiovascular Medic [facility] SUBJECTIVE Chief Complaint Patient presents [...] edema Constipation COPD (chronic obstructive pulmonary disease) (CMS/[facility]) Encounter for subsequent annual wellness visit (AWV) in Medicare patient Hearing decreased Hypercholesterolemia Hyperpigmentation Iron deficiency Lymphedema Lymphorrhea Myocardial infarction (CMS/HCC) Nicotine dependence Osteoarthritis of both knees Papillomatosis Sleep apnea Morbid obesity (CMS/HCC) Venous stasis ulcer of right lower extremity (CMS/HCC) Wound cellulitis Diabetes mellitus, type II (CMS/HCC) 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 [facility] 12-17-2023 Note Cardiovascular Medic [facility] SUBJECTIVE Chief Complaint Patient presents [...] le+ Pitting Edema (more content not included)... [facility] 12-17-2023 Note Patient here for 6 [...] All other systems reviewed and are negative. [facility] 09-03-2022 Evaluation note Encounter Date Diagnosis [...] have been reviewed. Hospital notes from the [facility] from his prior admission on 08/18/2022 [...] years ago and was just admitted to [facility] with pneumonia a couple of weeks [...] as documented in the electronic medical record. [employer] Other 09-15-2022 NotePROCEDURE: XR HIP RT 2 3V WO PELVIS HISTORY: Pain in right hip joint COMPARISON: XR pelvis 09/15/2021 FINDINGS: BONES:Complete loss of the joint space with [id number] articulation. Large periarticular degenerative osteophytes. No fracture, dislocation, bone lesion. SOFT TISSUES:No visible soft tissue swelling. EFFUSION:None visible. OTHER: Atherosclerotic disease. IMPRESSION: 1. 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 2. No appreciable acute abnormality. Electronically authenticated by: NOREEN KELLY Date: 2022-05-08 10:48[facility] NoteThe [facility] NoteThe [facility] NotePatient Outreach ([facility]OVAM[facility]) ARIANNE MCQUEEN ([id number]) 1945 M Date Time Provider Department 10/11/20 TERRANCE CABALLERO During your visit today, we recorded the following information about you: Allergies As of Date: 10/11/2020 (No Known Allergies) Date Reviewed: 04/21/2020 Reviewed by: Willie Sotelo - Fully Assessed Order(s):SARS-COVID VACCINE 1ST DOSE APPT [[id number]] Order #: [id number] FUTURE Prescriptions as of 10/11/2020 Sig: TRAZODONE [...] [I73.9] 08/19/2012 Letter Text Encounter Status:Closed by [employer] on 10/15/20[facility] Evaluation note* Diagnosis Type 2 diabetes mellitus without complication, without long-term current use of insulin (CMS/HCC)- Primary Chronic kidney disease, stage 3a (HCC) (CMS/HCC) Mixed hyperlipidemia (CMS/HCC) Mixed hyperlipidemia 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 (CMS/HCC) Essential hypertension Unspecified essential hypertension Prostate cancer screening Special screening for malignant neoplasm of prostate Obstructive sleep apnea syndrome Obstructive sleep apnea (adult) (pediatric) Chronic obstructive pulmonary disease, unspecified COPD type (CMS/HCC) Venous stasis of both lower extremities Morbid (severe) obesity due to excess calories (CMS/HCC) Body mass index (BMI) 45.0-49.9, adult (CMS/HCC) documented in this encounter [facility] HealthcareEvaluation note* Diagnosis Type 2 diabetes mellitus [...] apnea (adult) (pediatric) 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 (CMS/HCC) Essential hypertension [...] (CMS/HCC) Mixed hyperlipidemia 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 (CMS/HCC) Essential hypertension Unspecified essential hypertension Prostate cancer screening Special screening for malignant neoplasm of prostate Obstructive sleep apnea syndrome Obstructive sleep apnea (adult) (pediatric) Chronic obstructive pulmonary disease, unspecified COPD type (CMS/HCC) Venous stasis of both lower extremities Morbid (severe) obesity due to excess calories (CMS/HCC) Body mass index (BMI) 45.0-49.9, adult (CMS/[facility]) 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 (CMS/HCC)- Primary 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 (CMS/HCC) Mixed hyperlipidemia (CMS/HCC) Mixed hyperlipidemia documented in this encounter [facility] HealthcareEvaluation note* Diagnosis Type 2 diabetes mellitus [...] apnea (adult) (pediatric) 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 (CMS/HCC) Essential hypertension [...] Morbid (severe) obesity due to excess calories (CMS/[facility]) Body mass index (BMI) 45.0-49.9, adult ([facility]) Type 2 diabetes mellitus with other skin [...] (CMS/HCC) Mixed hyperlipidemia 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 (CMS/HCC) Essential hypertension Unspecified essential hypertension Prostate cancer screening Special screening for malignant neoplasm of prostate Obstructive sleep apnea syndrome Obstructive sleep apnea (adult) (pediatric) Chronic obstructive pulmonary disease, unspecified COPD type (CMS/HCC) Venous stasis of both lower extremities Morbid (severe) obesity due to excess calories (CMS/[facility]) Body mass index (BMI) 45.0-49.9, adult (CMS/[facility]) Bilateral primary osteoarthritis of knee 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 (CMS/HCC) documented in this encounter [facility] HealthcareEvaluation note* Diagnosis Type 2 diabetes mellitus [...] apnea (adult) (pediatric) 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 (CMS/HCC) Essential hypertension [...] (CMS/HCC) Chronic kidney disease, stage 3a (HCC) ([facility]) Morbid (severe) obesity due to excess calories [...] (CMS/HCC) Mixed hyperlipidemia 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 (CMS/HCC) Essential hypertension Unspecified essential hypertension Prostate cancer screening Special screening for malignant neoplasm of prostate Obstructive sleep apnea syndrome Obstructive sleep apnea (adult) (pediatric) Chronic obstructive pulmonary disease, unspecified COPD type (CMS/HCC) Venous stasis of both lower extremities Morbid (severe) obesity due to excess calories (CMS/HCC) Body mass index (BMI) 45.0-49.9, adult (CMS/HCC) Chronic kidney disease, stage 3a (HCC) (CMS/HCC)- Primary documented in this encounter [facility] HealthcareEvaluation note* Diagnosis Type 2 diabetes mellitus [...] apnea (adult) (pediatric) 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 (CMS/HCC) Essential hypertension [...] extremity with ulcer of unspecified site (CODE) (CMS/[facility]) Aortic ectasia, unspecified site (CMS/HCC) Aortic ectasia, unspecified site Venous stasis of both lower extremities Essential hypertension Unspecified essential hypertension Type 2 diabetes mellitus without complication, without long-term current use of insulin (CMS/HCC)- Primary Chronic kidney disease, stage 3a (HCC) (CMS/HCC) Mixed hyperlipidemia (CMS/HCC) Mixed hyperlipidemia 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 (CMS/HCC) Essential hypertension Unspecified essential hypertension Prostate cancer screening Special screening for malignant neoplasm of prostate Obstructive sleep apnea syndrome Obstructive sleep apnea (adult) (pediatric) Chronic obstructive pulmonary disease, unspecified COPD type (CMS/HCC) Venous stasis of both lower extremities Morbid (severe) obesity due to excess calories (CMS/HCC) Body mass index (BMI) 45.0-49.9, adult (CMS/HCC) Type 2 diabetes mellitus without complications (CMS/HCC) documented in this encounter [facility] HealthcareEvaluation note* Diagnosis Type 2 diabetes mellitus [...] apnea (adult) (pediatric) 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 (CMS/HCC) Essential hypertension Unspecified essential hypertension Type 2 diabetes mellitus without complication, without long-term current use of insulin (CMS/HCC) Chronic diastolic congestive heart failure (CMS/HCC) Venous stasis of both lower extremities Bilateral lower extremity edema Morbid obesity ([facility]) Morbid obesity Type 2 diabetes mellitus without complication, without long-term current use of insulin ([facility])- Primary Type 2 diabetes mellitus with diabetic chronic kidney disease ([facility]) Chronic kidney disease, stage 3a (HCC) ([facility]) Morbid (severe) obesity due to excess calories ([facility]) Body mass index (BMI) 45.0-49.9, adult ([facility]) Type 2 diabetes mellitus with other skin ulcer (CODE) ([facility]) Non-pressure chronic ulcer of unspecified part of unspecified lower leg with unspecified severity ([facility]) Peripheral vascular disease, unspecified ([facility]) Peripheral vascular disease, unspecified Other ventricular tachycardia ([facility]) 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 (CODE) ([facility]) Aortic ectasia, unspecified site ([facility]) Aortic ectasia, unspecified site Venous stasis of both lower extremities Essential hypertension Unspecified essential hypertension Type 2 diabetes mellitus without complication, without long-term current use of insulin ([facility])- Primary Chronic kidney disease, stage 3a (HCC) ([facility]) Mixed hyperlipidemia ([facility]) Mixed hyperlipidemia 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 ([facility]) Essential hypertension Unspecified essential hypertension Prostate cancer screening Special screening for malignant neoplasm of prostate Obstructive sleep apnea syndrome Obstructive sleep apnea (adult) (pediatric) Chronic obstructive pulmonary disease, unspecified COPD type ([facility]) Venous stasis of both lower extremities Morbid (severe) obesity due to excess calories ([facility]) Body mass index (BMI) 45.0-49.9, adult ([facility]) Anemia, unspecified documented in this encounter [facility] HealthcareEvaluation note* Diagnosis Type 2 diabetes mellitus without complication, without long-term current use of insulin ([facility])- Primary Essential hypertension Unspecified essential hypertension Varicose veins of bilateral lower extremities with pain Morbid obesity ([facility]) Morbid obesity Encounter for subsequent annual wellness visit (AWV) in Medicare patient- Primary Chronic obstructive pulmonary disease, unspecified COPD type ([facility]/HCC) Obstructive sleep apnea syndrome Obstructive sleep apnea (adult) (pediatric) 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 ([facility]) Essential hypertension Unspecified essential hypertension Type 2 diabetes mellitus without complication, without long-term current use of insulin ([facility]/HCC) Chronic diastolic congestive heart failure ([facility]) Venous stasis of both lower extremities Bilateral lower extremity edema Morbid obesity ([facility]/HCC) Morbid obesity Type 2 diabetes mellitus without complication, without long-term current use of insulin (CMS/HCC)- Primary Type 2 diabetes mellitus with diabetic chronic kidney disease (CMS/HCC) Chronic kidney disease, stage 3a (HCC) ([facility]) Morbid (severe) obesity due to excess calories ([facility]) Body mass index (BMI) 45.0-49.9, adult ([facility]) Type 2 diabetes mellitus with other skin ulcer (CODE) ([facility]) Non-pressure chronic ulcer of unspecified part of unspecified lower leg with unspecified severity ([facility]) Peripheral vascular disease, unspecified ([facility]) Peripheral vascular disease, unspecified Other ventricular tachycardia ([facility]) 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 (CODE) ([facility]) Aortic ectasia, unspecified site ([facility]) Aortic ectasia, unspecified site Venous stasis of both lower extremities Essential hypertension Unspecified essential hypertension Type 2 diabetes mellitus without complication, without long-term current use of insulin ([facility])- Primary Chronic kidney disease, stage 3a (HCC) ([facility]) Mixed hyperlipidemia ([facility]) Mixed hyperlipidemia 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 ([facility]) Essential hypertension Unspecified essential hypertension Prostate cancer screening Special screening for malignant neoplasm of prostate Obstructive sleep apnea syndrome Obstructive sleep apnea (adult) (pediatric) Chronic obstructive pulmonary disease, unspecified COPD type ([facility]/HCC) Venous stasis of both lower extremities Morbid (severe) obesity due to excess calories ([facility]) Body mass index (BMI) 45.0-49.9, adult ([facility]) Type 2 diabetes mellitus without complication, without long-term current use of insulin ([facility]) documented in this encounter [facility] HealthcareEvaluation note* Diagnosis Type 2 diabetes mellitus without complication, without long-term current use of insulin ([facility]/HCC)- Primary Essential hypertension Unspecified essential hypertension Varicose veins of bilateral lower extremities with pain Morbid obesity ([facility]) Morbid obesity Encounter for subsequent annual wellness visit (AWV) in Medicare patient- Primary Chronic obstructive pulmonary disease, unspecified COPD type (CMS/HCC) Obstructive sleep apnea syndrome Obstructive sleep apnea (adult) (pediatric) 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 (CMS/HCC) Essential hypertension Unspecified essential hypertension Type 2 diabetes mellitus without complication, without long-term current use of insulin ([facility]) Chronic diastolic congestive heart failure ([facility]) Venous stasis of both lower extremities Bilateral lower extremity edema Morbid obesity (CMS/HCC) Morbid obesity Type 2 diabetes mellitus without complication, without long-term current use of insulin ([facility])- Primary Type 2 diabetes mellitus with diabetic chronic kidney disease ([facility]) Chronic kidney disease, stage 3a (HCC) ([facility]) Morbid (severe) obesity due to excess calories ([facility]) Body mass index (BMI) 45.0-49.9, adult ([facility]) Type 2 diabetes mellitus with other skin ulcer (CODE) ([facility]) Non-pressure chronic ulcer of unspecified part of unspecified lower leg with unspecified severity ([facility]) Peripheral vascular disease, unspecified ([facility]) Peripheral vascular disease, unspecified Other ventricular tachycardia ([facility]) 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 (CODE) ([facility]) Aortic ectasia, unspecified site ([facility]) Aortic ectasia, unspecified site Venous stasis of both lower extremities Essential hypertension Unspecified essential hypertension Type 2 diabetes mellitus without complication, without long-term current use of insulin ([facility])- Primary Chronic kidney disease, stage 3a (HCC) (CMS/HCC) Mixed hyperlipidemia ([facility]) Mixed hyperlipidemia 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 ([facility]/HCC) Essential hypertension Unspecified essential hypertension Prostate cancer screening Special screening for malignant neoplasm of prostate Obstructive sleep apnea syndrome Obstructive sleep apnea (adult) (pediatric) Chronic obstructive pulmonary disease, unspecified COPD type (CMS/HCC) Venous stasis of both lower extremities Morbid (severe) obesity due to excess calories ([facility]) Body mass index (BMI) 45.0-49.9, adult ([facility]) Localized edema Edema documented in this encounter [facility] HealthcareEvaluation note* Diagnosis Type 2 diabetes mellitus without complication, without long-term current use of insulin ([facility])- Primary Essential hypertension Unspecified essential hypertension Varicose veins of bilateral lower extremities with pain Morbid obesity (CMS/HCC) Morbid obesity Encounter for subsequent annual wellness visit (AWV) in Medicare patient- Primary Chronic obstructive pulmonary disease, unspecified COPD type (CMS/HCC) Obstructive sleep apnea syndrome Obstructive sleep apnea (adult) (pediatric) 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 (CMS/HCC) Essential hypertension Unspecified essential hypertension Type 2 diabetes mellitus without complication, without long-term current use of insulin ([facility]) Chronic diastolic congestive heart failure ([facility]) Venous stasis of both lower extremities Bilateral lower extremity edema Morbid obesity (CMS/HCC) Morbid obesity Type 2 diabetes mellitus without complication, without long-term current use of insulin (CMS/HCC)- Primary Type 2 diabetes mellitus with diabetic chronic kidney disease (CMS/HCC) Chronic kidney disease, stage 3a (HCC) ([facility]) Morbid (severe) obesity due to excess calories ([facility]) Body mass index (BMI) 45.0-49.9, adult ([facility]) Type 2 diabetes mellitus with other skin ulcer (CODE) ([facility]) Non-pressure chronic ulcer of unspecified part of unspecified lower leg with unspecified severity ([facility]) Peripheral vascular disease, unspecified ([facility]) Peripheral vascular disease, unspecified Other ventricular tachycardia ([facility]) 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 (CODE) ([facility]) Aortic ectasia, unspecified site ([facility]) Aortic ectasia, unspecified site Venous stasis of both lower extremities Essential hypertension Unspecified essential hypertension Type 2 diabetes mellitus without complication, without long-term current use of insulin (CMS/HCC)- Primary Chronic kidney disease, stage 3a (HCC) (CMS/HCC) Mixed hyperlipidemia (CMS/HCC) Mixed hyperlipidemia 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 (CMS/HCC) Essential hypertension Unspecified essential hypertension Prostate cancer screening Special screening for malignant neoplasm of prostate Obstructive sleep apnea syndrome Obstructive sleep apnea (adult) (pediatric) Chronic obstructive pulmonary disease, unspecified COPD type (CMS/HCC) Venous stasis of both lower extremities Morbid (severe) obesity due to excess calories ([facility]) Body mass index (BMI) 45.0-49.9, adult ([facility] [facility]) Obstructive sleep apnea syndrome- Primary Obstructive sleep apnea (adult) (pediatric) Type 2 diabetes mellitus with diabetic chronic kidney disease (CMS/HCC) 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 (CODE) (CMS/HCC) Morbid (severe) obesity due to excess calories (CMS/HCC) Body mass index (BMI) 45.0-49.9, adult (CMS/[facility]) Type 2 diabetes mellitus with diabetic peripheral angiopathy without gangrene (CMS/HCC) Other ventricular tachycardia (CMS/HCC) Chronic obstructive pulmonary disease, unspecified (CMS/HCC) Chronic diastolic (congestive) heart failure (CMS/HCC) 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 (CMS/HCC) Essential hypertension Unspecified essential hypertension Chronic kidney disease, stage 3a (HCC) (CMS/HCC) Bilateral lower extremity edema Stasis edema with ulcer of both lower extremities (CMS/HCC) Mixed hyperlipidemia (CMS/HCC) Mixed hyperlipidemia Stasis dermatitis 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 hypertension (CMS/HCC) 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 (CMS/HCC) documented in this encounter [facility] HealthcareEvaluation note* Diagnosis Type 2 diabetes mellitus without complication, without long-term current use of insulin (CMS/[facility])- Primary Essential hypertension Unspecified essential hypertension Varicose veins of bilateral lower extremities with pain Morbid obesity (CMS/[facility]) Morbid obesity Encounter for subsequent annual wellness visit (AWV) in Medicare patient- Primary Chronic obstructive pulmonary disease, unspecified COPD type (CMS/HCC) Obstructive sleep apnea syndrome Obstructive sleep apnea (adult) (pediatric) 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 (CMS/HCC) Essential hypertension [...] (CMS/HCC) Body mass index (BMI) 45.0-49.9, adult ([facility]) Type 2 diabetes mellitus with other skin ulcer (CODE) (CMS/[facility]) Non-pressure chronic ulcer of unspecified part of [...] (CMS/HCC) Mixed hyperlipidemia 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 (CMS/HCC) Essential hypertension Unspecified essential hypertension Prostate cancer screening Special screening for malignant neoplasm of prostate Obstructive sleep apnea syndrome Obstructive sleep apnea (adult) (pediatric) Chronic obstructive pulmonary disease, unspecified COPD type (CMS/HCC) Venous stasis of both lower extremities Morbid (severe) obesity due to excess calories (CMS/HCC) Body mass index (BMI) 45.0-49.9, adult (CMS/HCC) Obstructive sleep apnea syndrome- Primary Obstructive sleep apnea (adult) (pediatric) Type 2 diabetes mellitus with diabetic chronic kidney disease (CMS/HCC) 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 (CODE) (CMS/HCC) Morbid (severe) obesity due to excess calories (CMS/HCC) Body mass index (BMI) 45.0-49.9, adult (CMS/HCC) Type 2 diabetes mellitus with diabetic peripheral angiopathy without gangrene (CMS/HCC) Other ventricular tachycardia (CMS/HCC) Chronic obstructive pulmonary disease, unspecified (CMS/HCC) Chronic diastolic (congestive) heart failure (CMS/HCC) 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 (CMS/HCC) Essential hypertension Unspecified essential hypertension Chronic kidney disease, stage 3a (HCC) (CMS/HCC) Bilateral lower extremity edema Stasis edema with ulcer of both lower extremities (CMS/HCC) Mixed hyperlipidemia (CMS/HCC) Mixed hyperlipidemia Stasis dermatitis 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 hypertension (CMS/HCC) 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 (CMS/HCC) Type 2 diabetes mellitus without complications (CMS/HCC) documented in this encounter [facility] general Narrative - Reported* Type Description Date Medical History diabetes mallitus Medical History HTN Surgical History knee replacement 2010 [employer] Other Summary Purpose Family History No Family [...] section and content) DATE CREATED AUTHOR 09/01/2021 [facility] DATE CREATED AUTHOR AUTHOR'S ORGANIZ ATION 04/06/2022 [facility] DATE CREATED AUTHOR AUTHOR'S ORGANIZ ATION 11/04/2022 [facility] DATE CREATED AUTHOR AUTHOR'S ORGANIZ ATION 11/12/2023 [facility] DATE CREATED AUTHOR AUTHOR'S ORGANIZ ATION 09/29/2024 [facility] EPIC DATE CREATED AUTHOR AUTHOR'S ORGANIZ ATION 10/05/2024 [facility] REASON FOR VISIT (unrecogniz ed section and content) Reason Onset Date Comments Med Refill 06/13/2024 Reason Comments Med Refill Reason Comments Diabetes Care Teams (unrecognized sec tion and content) 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 Relationship Specialty Start Date End Date Mal Barnes MD [address], [place] [id number] PCP - External PCP Family Medicine 04/24/23 Gilberto Stockton MD [address] [place] [address] PCP - [employer]oted 08/24/23 Gilberto Stockton MD [address] [place] [address] PCP - General Family Medicine 03/09/24 Teressa Sierra NP [address] [place] [phone] Nurse Practitioner Family Medicine 09/09/23 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 Relationship Specialty Start Date End Date Mal Barnes MD [address] [facility] [place] [address] PCP - External PCP Family Medicine 04/24/23 Gilberto Stockton MD [address] [place] [phone] PCP - [employer]oted 08/24/23 Gilberto Stockton MD [address] [place] [phone] PCP - General Family Medicine 03/09/24 Teressa Sierra NP [address] [place] [phone] Nurse Practitioner Family [facility] 09/09/23 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 Relationship Specialty Start Date End Date Mal Barnes MD [address] [facility] [place] [address] PCP - External PCP Family Medicine 04/24/23 Gilberto Stockton MD [address] [place] [phone] PCP - [employer]oted 08/24/23 Gilberto Stockton MD [address] [place] [phone] PCP - General Family Medicine 03/09/24 Teressa Sierra NP [address] [place] [phone] Nurse Practitioner Family Medicine 09/09/23 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 Relationship Specialty Start Date End Date Mal Barnes MD [address] [facility] [place] [address] PCP - External PCP Family Medicine 04/24/23 Gilberto Stockton MD [address] [place] [phone] PCP - [employer]oted 08/24/23 Gilberto Stockton MD [address] [place] [phone] PCP - General Family Medicine 03/09/24 Teressa Sierra NP [address] [place] [phone] Nurse Practitioner Family Medicine 09/09/23 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 Relationship Specialty Start Date End Date Mal Barnes MD [address] [facility] [place] [phone] PCP - External PCP Family Medicine 04/24/23 Gilberto Stockton MD [address] [place] [phone] PCP - [employer]oted 08/24/23 Gilberto Stockton MD [address] [place] [phone] PCP - General Family Medicine 03/09/24 Teressa Sierra NP [address] [place] [phone] Nurse Practitioner Family Medicine 09/09/23 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 Relationship Specialty Start Date End Date Mal Barnes MD [address] [facility] [place] [address] PCP - External PCP Family Medicine 04/24/23 Gilberto Stockton MD [address] [place] [phone] PCP - [employer]oted 08/24/23 Gilberto Stockton MD [address] [place] [phone] PCP - General Family Medicine 03/09/24 Teressa Sierra NP [address] [place] [phone] Nurse Practitioner Family Medicine 09/09/23 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 Relationship Specialty Start Date End Date Mal Barnes MD [address], [place] [phone] PCP - External PCP Family Medicine 04/24/23 Gilberto Stockton MD [address] [place] [phone] PCP - [employer]oted 08/24/23 08/23/24 Gilberto Stockton MD [address] [place] [phone] PCP - General Family Medicine 03/09/24 Teressa Sierra NP [address] [place] [phone] Nurse Practitioner Family Medicine 09/09/23 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 Relationship Specialty Start Date End Date Mal Barnes MD [address] [facility] [place] [place] [address] PCP - External PCP Family Medicine 04/24/23 Gilberto Stockton MD [address] [place] [phone] PCP - [employer]oted 08/24/23 08/23/24 Gilberto Stockton MD [address] [place] [phone] PCP - General Family Medicine 03/09/24 Teressa Sierra NP [address] [place] [phone] Nurse Practitioner Family Medicine 09/09/23 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 Relationship Specialty Start Date End Date Mal Barnes MD [address] [facility] [place] [place] [address] PCP - External PCP Family Medicine 04/24/23 Gilberto Stockton MD [address] [place] [phone] PCP - General Family Medicine 03/09/24 Teressa Sierra NP [address] [place] [phone] Nurse Practitioner Family Medicine 09/09/23 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 Relationship Specialty Start Date End Date Mal Barnes MD [address] [facility] [place] [place] [address] PCP - External PCP Family Medicine 04/24/23 Gilberto Stockton MD [address] [place] [phone] PCP - General Family Medicine 03/09/24 Teressa Sierra NP [address] [place] [phone] Nurse Practitioner Family Medicine 09/09/23 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 Relationship Specialty Start Date End Date Mal Barnes MD [address] [place] [address] PCP - External PCP Family Medicine 04/24/23 Gilberto Stockton MD [address] [place] [address] PCP - General Family Medicine 03/09/24 Teressa Sierra NP [address] [place] [phone] Nurse Practitioner Family Medicine 09/09/23 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 Relationship Specialty Start Date End Date Mal Barnes MD [address] [facility] [place] [place] [address] PCP - External PCP Family Medicine 04/24/23 Gilberto Stockton MD [address] [place] [phone] PCP - General Family Medicine 03/09/24 Teressa Sierra NP [address] [place] [address] Nurse Practitioner Family Medicine 09/09/23 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 Relationship Specialty Start Date End Date Mal Barnes MD [address] [place] [address] PCP - External PCP Family Medicine 04/24/23 Gilberto Stockton MD [address] [place] [address] PCP - General Family Medicine 03/09/24 Teressa Sierra NP [address] [place] [address] Nurse Practitioner [facility] 09/09/23 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 Relationship Specialty Start Date End Date Mal Barnes MD [address] [place] [address] PCP - External PCP Family Medicine 04/24/23 Gilberto Stockton MD [address] [place] [phone] PCP - General Family Medicine 03/09/24 Gilberto Stockton MD [address] [place] [address] PCP - Medical [facility] 08/24/2408/23 Teressa Sierra NP [address] [place] [address] Nurse Practitioner Family Medicine 09/09/23 FOR RECORDS [...] BE BASED ON THE PRIMARY CLINICAL RECORDS. [facility]. provides no warranty or guarantee of the accuracy or completeness of information in this document.
== END 2024-10-17 19:52 | disposition home or self-care (01) ==
LOC: SLEEP 19:51
PROVIDERS: PCP Nurse Practitioner; Visit Provider Nurse Practitioner
DX: G47.33 Obstructive sleep apnea (adult) (pediatric) (principal)
CPT/HCPCS: 95811

== ENCOUNTER 2024-10-19 15:14 | Outpatient (OUT) | payer MEDICARE, SELFPAY | END 2024-10-19 15:15 | disposition home or self-care (01) | LOC: WC 15:14 | PROVIDERS: PCP Nurse Practitioner; Visit Provider Physician Assistant | DX: I87.313 Chronic venous hypertension (idiopathic) with ulcer of bilateral lower extremity (principal); L97.218 Non-pressure chronic ulcer of right calf with other specified severity; L97.821 Non-pressure chronic ulcer of other part of left lower leg limited to breakdown of skin | CPT/HCPCS: 29580 ==

== ENCOUNTER 2024-11-15 13:45 | Outpatient (OUT) | payer MEDICARE, SELFPAY | END 2024-11-15 13:46 | disposition home or self-care (01) | LOC: WC 13:45 | PROVIDERS: PCP Nurse Practitioner; Visit Provider Physician Assistant | DX: I87.311 Chronic venous hypertension (idiopathic) with ulcer of right lower extremity (principal); L97.218 Non-pressure chronic ulcer of right calf with other specified severity | CPT/HCPCS: 29580 ==

== ENCOUNTER 2024-12-04 15:58 | Emergency (ER) | payer MEDICARE, SELFPAY ==
--- OUTSIDE RECORDS SUMMARY | 2024-12-04 16:05 | XMS_ITS | CCD ---
Author Organization [facility] Care Team Providers Care Production Controller Name Role Phone MAL BARNES Primary Care Unavailable PAY, ROBIN Referring Unavailable MASROOR, GUDELIA Admitting Unavailable MASROOR, GUDELIA Attending Unavailable AKANKSHA UP Surgeon Unavailable MD Procedure Practitioner Unavailab le MD Procedure Practitioner Unavailab le MOLLY, GUDELIA Surgeon [...] DEBI, CUBA H Consulting Unavailable MOLLY, DR MENEEZS Admitting Unavailable HOUSE, DR MENEZES Attending Unavailable [place], DR MENEZES Primary Care Unavailable MOLLY, DR MENEZES Consulting Unavailable ROBIN, DR NOREEN Oneill Consulting Unavailable MOUKARBEL, DR DOMINIQUE Admitting Unavailable MOUKARBEL, DR DOMINIQUE Attending Unavailable HOUSE, DR MENEZES Primary Care Unavailable MOUKARBEL, DR DOMINIQUE Consulting Unavailable MOUKARBEL, DR DOMINIQUE Admitting Unavailable MOUKARBEL, DR DOMINIQUE Attending Unavailable [place], DR MENEZES Primary Care Unavailable [place], DR JOHANA Alvarado Consulting Unavailable MOUKARBEL, DR DOMINIQUE Consulting Unavailable MOUKARBEL, DR DOMINIQUE Admitting Unavailable MARTIN, DR DOMINIQUE Attending Unavailable MOLLY, DR MENEZES Primary Care Unavailable MARTIN, DR DOMINIQUE Consulting Unavailable Molly, Mal Primary Care Unavailable Lisha Ortega Attending Unavailable Lisha Ortega Admitting Unavailable Mal Barnes MD Unavailable Gilberto Stockton MD Unavailable Mariela SEE SUPERVISOR, Teressa Unavailable Gilberto Stockton MD Primary Care Provider Gilberto Stockton MD Unavailable MARIELA TERESSA Attending Unavailable TERESSA SIERRA Attending Unavailable TERESSA SIERRA Attending Unavailable TERESSA SIERRA Attending Unavailable CATINA SALAZAR Attending Unavailable ARIELLA GALLEGO Attending Unavailable ARIELLA GALLEGO Attending Unavailable Gilberto Stockton MD Unavailable Medications Current Medications Medication Drug Class(es) Dates Sig (Normalized) Sig (Original) [id number] 200 actuat albuterol 0.09 mg/actuat metered dose [...] (Lipitor) 40 MG tablet Indications: Atherosclerosis of [place] coronary artery of [place] heart without angina pectoris (CMS/HCC) , Mixed hyperlipidemia (CMS/HCC) , Coronary artery disease involving [place] coronary artery of [place] heart without angina pectoris (CMS/HCC) Take 1 [...] MG tablet Indications: Atherosclerotic heart disease of [place] coronary artery without angina pectoris (CMS/HCC) Take [...] complication, without long-term current use of insulin ([facility]) Take 0.5 tablets (2.5 mg) by mouth [...] disease (20 sources) Atherosclerotic heart disease of [place] coronary artery without angina pectoris; Translations: [Atherosclerotic heart disease of [place] coronary artery with other forms of angina [...] Onset: 2022 Chronic Other aftercare (1 source) 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; 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] Onset: 08-29-2022 Episodic Other aftercare (1 source) 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 1 mg/dL [facility] Chloride [Moles/Vol] 104 mmol/L 98 - 107 mmol/L [facility] CO2 [Moles/Vol] 30.2 mmol/L 21.0 - 32.0 mmol/L [facility] Creatinine [Mass/Vol] 1.33 mg/dL High 0.70 - 1.30 mg/dL [facility] GFR/1.73 sq M.predicted CKD-EPI (S/P/Bld) [Vol rate/Area] >60 >=60 mL/min/1.73m 2 [facility] Glucose [Mass/Vol] 132 mg/dL High 74 - 106 mg/dL [facility] Interpretation and review of laboratory results Abnormal [facility] Potassium [Moles/Vol] 4.9 mmol/L 3.5 - 5.1 mmol/L [facility] Sodium [Moles/Vol] 136 mmol/L 136 - 145 mmol/L [facility] TBH EGFR-NON AF COMORAN 52 Low >=60 mL/min/1.73m 2 [facility] Urea nitrogen [Mass/Vol] 31 mg/dL High 7.0 - 18.0 mg/dL [facility] Urea nitrogen/Creatinine [Mass ratio] 23.3 mg/mg [facility] Office Visiton 10-03-2024 Follow-up visit [id number] HannahLuis M jennifer Desai 1945 M Date Provider Department Center 10/03/2024 CTAINA ROBERTS SHILPI Santiago Family History Problem Relation Age of Onset Coronary artery disease Mother Family Status - Relation Status Age at Mother Level of Service:96769 MD OFFICE/OUTPATIENT ESTABLISHED MOD MDM 30 MIN Normal [facility] ALL CBC WITH AUTO DIFFon BASOPHILS ABSOLUTE AUTO 0 [facility] Basophils/100 WBC (Bld) 0.5 % 0.2 - 2.0 % [facility] Eosinophils/100 WBC (Bld) 3.4 % 0.9 - 7.0 % [facility] Erythrocyte distribution width (RBC) [Ratio] 13.8 % 11.0 - 15.0 % [facility] Hematocrit (Bld) [Volume fraction] 36.7 % Low 42.0 - 54.0 % [facility] Hemoglobin (Bld) [Mass/Vol] 11.9 g/dL Low 14.0 - 18.0 g/dL [facility] IMMATURE GRANULOCYTES ABS AUTO 0.03 [facility] Immature granulocytes/100 WBC (Bld) 0.5 % 0.0 - 0.5 % [facility] Interpretation and review of laboratory results Abnormal [facility] LYMPHOCYTES ABSOLUTE AUTO 1.3 [facility] Lymphocytes/100 WBC (Bld) 20.2 % Low 20.5 - 60.0 % [facility] MCH (RBC) [Entitic mass] 30.5 pg 25.9 - 34.0 pg [facility] MCHC (RBC) [Mass/Vol] 32.4 g/dL 29.9 - 35.2 g/dL [facility] MCV (RBC) [Entitic vol] 94.1 fL High 80.0 - 94.0 fL [facility] MONOCYTES ABSOLUTE AUTO 0.7 [facility] Monocytes/100 WBC (Bld) 10.9 % 1.7 - 12.0 % [facility] NEUTROPHILS ABSOLUTE AUTO 4.2 [facility] Neutrophils/100 WBC (Bld) 64.5 % 43.0 - 75.0 % [facility] Platelet mean volume (Bld) [Entitic vol] 9.4 fL Low 9.5 - 13.5 fL [facility] TB EO # 0.2 [facility] PLT 238 [facility] RBC 3.9 Low [facility] WBC 6.4 [facility] ALL CBC WITH AUTO DIFFon Erythrocyte distribution width (RBC) [Ratio] 13.6 % 11.0 - 15.0 % [facility] Hematocrit (Bld) [Volume fraction] 36.9 % Low 42.0 - 54.0 % [facility] Hemoglobin (Bld) [Mass/Vol] 12.2 g/dL Low 14.0 - 18.0 g/dL [facility] Interpretation and review of laboratory results Abnormal [facility] MCH (RBC) [Entitic mass] 31.2 pg 25.9 - 34.0 pg [facility] MCHC (RBC) [Mass/Vol] 33.1 g/dL 29.9 - 35.2 g/dL [facility] MCV (RBC) [Entitic vol] 94.4 fL High 80.0 - 94.0 fL [facility] Platelet mean volume (Bld) [Entitic vol] 8.7 fL Low 9.5 - 13.5 fL [facility] PLT [address] [facility] RBC 3.91 Low [facility] WBC 7.2 [facility] 36on 03-29-2024 36 Regarding stress haroldo t result from 03/17/2024: CUAUHTEMOC Freeman MA Stress test looks fine No ischemia noted and no reversible defect noted. Patient informed. Normal [facility] Office Visiton 03-09-2024 Follow-up visit [id number] Luis M Mcqueen 1945 M Date Provider Department Center 03/09/2024 ARIELLA GRAVESevue [facility] Family History Problem Relation Age of Onset Coronary artery disease Mother Family Status - Relation Status Age at Mother Level of Service:69744 MD OFFICE/OUTPATIENT ESTABLISHED MOD MDM 30 MIN Reason for Visit and Comments: Follow-up [499515] - 3 month follow up [facility] Orders Onlyon 03-09-2024 Orders Only [id number] Luis M Mcqueen 1945 M Date Provider Department Center 03/09/2024 LIBRADO CALDERON SHILPI [facility] Family History Problem Relation Age of Onset Coronary artery disease Mother Family Status - Relation Status Age at Mother [facility] 36on 01-02-2024 36 BP is looking good. Continue to hold amlodipine. Thanks [facility] 37on 12-17-2023 37 *Hold amlodipine *We will call you with a plan regarding your water pill. *Continue to check your blood pressure. Write down your readings. We will call you in 2 weeks for your readings. [facility] Office Visiton 12-17-2023 Follow-up visit [id number] Luis M Mcqueen 1945 M Date Provider Department Center 12/17/2023 ARIELLA GRAVES SHILPI Santiago Family History Problem Relation Age of Onset Coronary artery disease Mother Family Status - Relation Status Age at Mother Level of Service:37330 MD OFFICE/OUTPATIENT ESTABLISHED MOD MDM 30 MIN Reason for Visit and Comments: Coronary Artery Disease [187] Hypertension [421059] [facility] BNPon 08-20-2022 Natriuretic peptide B (Bld) [Mass/Vol] 1748.0 pg/mL Normal <=1,800.0 [facility] Comment on above: Performed By: #### P OCGLUC #### [facility] [address] [address] [address] Deidre Tijerina CBC AUTO DIFFon 08-20-2022 BASO # 0.0 103/ul Normal 0.0-0.1 [facility] Comment on above: Performed By: #### C BC #### [facility] [address] [address] [address] Deidre Tijerina Basophils/100 WBC (Bld) 0.1 % Critically low 0.2-2.0 [facility] Comment on above: Performed By: #### C BC #### [facility] [address] [address] [address] Deidre Tijerina EO # 0.0 103/ul Normal 0.0-0.7 [facility] Comment on above: Performed By: #### C BC #### [facility] [address] [address] [address] Deidre Tijerina Eosinophils/100 WBC (Bld) 0.0 % Critically low 0.9-7.0 [facility] Comment on above: Performed By: #### C BC #### [facility] [address] [address] [address] Deidre Tijerina Erythrocyte distribution width (RBC) [Ratio] 13.6 % Normal 11.0-15.0 [facility] Comment on above: Performed By: #### C BC #### [facility] [address] [place] [address] Dr. Deidre Tijerina Hematocrit (Bld) [Volume fraction] 30.1 % Critically low 42.0-54.0 [facility] Comment on above: Performed By: #### C BC #### [facility] [address] [place] [address] Dr. Deidre Tijerina Hemoglobin (Bld) [Mass/Vol] 9.8 g/dL Critically low 14.0-18.0 [facility] Comment on above: Performed By: #### C BC #### [facility] [address] [address] [address] Deidre Tijerina IG # 0.13 10e3/ul Critically high 0.00-0.03 [facility] Comment on above: Performed By: #### C BC #### [facility] [address] [address] [address] Deidre Tijerina IG % 1.0 % Critically high 0.0-0.5 [facility] Comment on above: Performed By: #### C BC #### [facility] [address] [address] [address] Deidre Tijerina LYMPH # 1.2 103/ul Normal 1.2-3.8 [facility] Comment on above: Performed By: #### C BC #### [facility] [address] [address] [address] Deidre Tijerina Lymphocytes/100 WBC (Bld) 8.6 % Critically low 20.5-60.0 [facility] Comment on above: Performed By: #### C BC #### [facility] [address] [address] [address] Deidre Tijerina MANUAL DIFF REQ NO Normal [facility] Comment on above: Performed By: #### C BC #### [facility] [address] [place] [address] Dr. Deidre Tijerina MCH (RBC) [Entitic mass] 30.7 pg Normal 25.9-34.0 [facility] Comment on above: Performed By: #### C BC #### [facility] [address] [place] [address] Dr. Deidre Tijerina MCHC (RBC) [Mass/Vol] 32.6 g/dL Normal 29.9-35.2 [facility] Comment on above: Performed By: #### C BC #### [facility] [address] [place] [address] Dr. Deidre Tijerina MCV (RBC) [Entitic vol] 94.4 fL Critically high 80.0-94.0 [facility] Comment on above: Performed By: #### C BC #### [facility] [address] [place] [address] Dr. Deidre Tijerina MONO # 0.8 103/ul Normal 0.3-0.8 [facility] Comment on above: Performed By: #### C BC #### [facility] [address] [place] [address] Dr. Deidre Tijerina Monocytes/100 WBC (Bld) 6.2 % Normal 1.7-12.0 [facility] Comment on above: Performed By: #### C BC #### [facility] [address] [place] [address] Dr. Deidre Tijerina NEUT # 11.3 103/ul Critically high 1.4-6.5 [facility] Comment on above: Performed By: #### C BC #### [facility] [address] [address] [address] Deidre Tijerina Neutrophils/100 WBC (Bld) 84.1 % Critically high 43.0-75.0 [facility] Comment on above: Performed By: #### C BC #### [facility] [address] [address] [address] Deidre Tijerina Platelet mean volume (Bld) [Entitic vol] 9.3 fL Critically low 9.5-13.5 [facility] Comment on above: Performed By: #### C BC #### [facility] [address] [address] [address] Deidre Tijerina PLT 204 103/ul Normal 150-450 [facility] Comment on above: Performed By: #### C BC #### [facility] [address] [address] [address] Deidre Tijerina RBC 3.19 106/ul Critically low 4.70-6.10 [facility] Comment on above: Performed By: #### C BC #### [facility] [address] [address] [address] Deidre Tijerina WBC 13.5 103/ul Critically high 4.0-11.0 [facility] Comment on above: Performed By: #### C BC #### [facility] [address] [address] [address] Deidre Tijerina POINT OF CARE GLUCOSEon 07-25 Glucose [Mass/Vol] 164 mg/dL Critically high 74-106 [facility] Comment on above: Performed By: #### P OCGLUC #### [facility] [address] [address] [address] Deidre Tijerina PROF CHEM 8 (BAS METB)on Anion gap [Moles/Vol] 10.5 mmol/L Normal [facility] Comment on above: Performed By: #### P OCGLUC #### [facility] [address] [address] [address] Deidre Tijerina Calcium [Mass/Vol] 8.1 mg/dL Critically low 8.5-10.1 [facility] Comment on above: Performed By: #### P OCGLUC #### [facility] [address] [address] [address] Deidre Tijerina Chloride [Moles/Vol] 100 mmol/L Normal 98-107 [facility] Comment on above: Performed By: #### P OCGLUC #### [facility] [address] [address] [address] Deidre Tijerina CO2 [Moles/Vol] 24.4 mmol/L Normal 21.0-32.0 [facility] Comment on above: Performed By: #### P OCGLUC #### [facility] [address] [address] [address] Deidre Tijerina Creatinine [Mass/Vol] 1.17 mg/dL Normal 0.70-1.30 [facility] Comment on above: Performed By: #### P OCGLUC #### [facility] [address] [address] [address] Deidre Tijerina EGFR-AF COMORAN >60 Normal >=60 [facility] Comment on above: Performed By: #### P OCGLUC #### [facility] [address] [address] [address] Deidre Tijerina EGFR-NON AF COMORAN 60 mL/min/1.73m2 Normal >=60 [facility] Comment on above: Performed By: #### P OCGLUC #### [facility] [address] [address] [address] Deidre Tijerina Glucose [Mass/Vol] 145 mg/dL Critically high 74-106 [facility] Comment on above: Performed By: #### P OCGLUC #### [facility] [address] [address] [address] Deidre Tijerina Potassium [Moles/Vol] 3.9 mmol/L Normal 3.5-5.1 [facility] Comment on above: Performed By: #### P OCGLUC #### [facility] [address] [address] [address] Deidre Tijerina Sodium [Moles/Vol] 131 mmol/L Critically low 136-145 [facility] Comment on above: Performed By: #### P OCGLUC #### [facility] [address], [place] [address] Dr. Deidre Tijerina Urea nitrogen [Mass/Vol] 37.0 mg/dL Critically high 7.0-18.0 [facility] Comment on above: Performed By: #### P OCGLUC #### [facility] [id number] Deidre Tijerina Urea nitrogen/Creatinine [Mass ratio] 31.6 mg/mg Normal [facility] Comment on above: Performed By: #### P OCGLUC #### [facility] [id number] Deidre Tijerina XR CHEST 1 Von [...] ESTUARDO ABEBE Date: 2022-08-20 13:26 Normal [facility] BNPon 08-19-2022 Natriuretic peptide B (Bld) [Mass/Vol] 955.0 pg/mL Normal <=1,800.0 [facility] Comment on above: Performed By: #### C BC #### [facility] [address], [place] [address] Dr. Deidre Tijerina CBC W MANUAL DIFFon 08-19-20 22 ATYPICAL LYMPH # 0.28 103/ul Normal [facility] Comment on above: Performed By: #### P OCGLUC #### [facility] [address], [place] [address] Dr. Deidre Tijerina ATYPICAL LYMPH % 2 % Normal [facility] Comment on above: Performed By: #### P OCGLUC #### [facility] [address] [address] [address] Deidre Tijerina BAND # 0.0 103/ul Normal 0.0-0.3 [facility] Comment on above: Performed By: #### P OCGLUC #### [facility] [address] [place] [address] Dr. Deidre Tijerina BAND % 0 % Normal 0-5 [facility] Comment on above: Performed By: #### P OCGLUC #### [facility] [address] [place] [address] Dr. Deidre Tijerina BASOM # 0.00 103/ul Normal 0.00-0.10 [facility] Comment on above: Performed By: #### P OCGLUC #### [facility] [address] [place] [address] Dr. Deidre Tijerina BASOM % 0.0 % Critically low 0.2-2.0 [facility] Comment on above: Performed By: #### P OCGLUC #### [facility] [address] [place] [address] Dr. Deidre Tijerina BLAST # Normal [facility] Comment on above: Performed By: #### P OCGLUC #### [facility] [address] [place] [address] Dr. Deidre Tijerina BLAST % Normal [facility] Comment on above: Performed By: #### P OCGLUC #### [facility] [address] [place] [address] Dr. Deidre Tijerina CORRECTED WBC Normal 4.0-11.[address] [facility] Comment on above: Performed By: #### P OCGLUC #### [facility] [address] [place] [address] Dr. Deidre Tijerina EOS # 0.00 103/ul Normal 0.00-0.70 [facility] Comment on above: Performed By: #### P OCGLUC #### [facility] [address] [place] [address] Dr. Deidre Tijerina EOS% 0.0 % Critically low 0.9-7.0 [facility] Comment on above: Performed By: #### P OCGLUC #### [facility] [address] [address] [address] Deidre Tijerina HCT 30.4 % Critically low 42.0-54.0 [facility] Comment on above: Performed By: #### P OCGLUC #### [facility] [address] [address] [address] Deidre Tijerina HGB 9.8 g/dl Critically low 14.0-18.0 [facility] Comment on above: Performed By: #### P OCGLUC #### [facility] [address] [address] [address] Deidre Tijerina LYMPHM # 0.43 103/ul Critically low 1.20-3.80 [facility] Comment on above: Performed By: #### P OCGLUC #### [facility] [address] [place] [address] Dr. Deidre Tijerina LYMPHM% 3.0 % Critically low 20.5-60.0 [facility] Comment on above: Performed By: #### P OCGLUC #### [facility] [address] [place] [address] Dr. Deidre Tijerina MCH 30.8 pg Normal 25.9-34.0 [facility] Comment on above: Performed By: #### P OCGLUC #### [facility] [address] [address] [address] Deidre Tijerina MCHC 32.2 g/dl Normal 29.9-35.2 [facility] Comment on above: Performed By: #### P OCGLUC #### [facility] [address] [address] [address] Deidre Tijerina MCV 95.6 fL Critically high 80.0-94.0 [facility] Comment on above: Performed By: #### P OCGLUC #### [facility] [address] [place] [address] Dr. Deidre Tijerina METAMYELOCYTE # Normal [facility] Comment on above: Performed By: #### P OCGLUC #### [facility] [address] [address] [address] Deidre Tijerina METAMYELOCYTE % Normal [facility] Comment on above: Performed By: #### P OCGLUC #### [facility] [address] [address] [address] Deidre Tijerina MONOM# 0.57 103/ul Normal 0.30-0.80 [facility] Comment on above: Performed By: #### P OCGLUC #### [facility] [address] [address] [address] Deidre Tijerina MONOM% 4.0 % Normal 1.7-12.0 [facility] Comment on above: Performed By: #### P OCGLUC #### [facility] [address] [address] [address] Deidre Tijerina MPV 9.1 fL Critically low 9.5-13.5 [facility] Comment on above: Performed By: #### P OCGLUC #### [facility] [address] [place] [address] Dr. Deidre Tijerina MYELOCYTE # Normal [facility] Comment on above: Performed By: #### P OCGLUC #### [facility] [address] [address] [address] Deidre Tijerina MYELOCYTE % Normal [facility] Comment on above: Performed By: #### P OCGLUC #### [facility] [address] [address] [address] Deidre Tijerina NRBC Normal [facility] Comment on above: Performed By: #### P OCGLUC #### [facility] [address] [address] [address] Deidre Tijerina PLT 188 103/ul Normal 150-450 [facility] Comment on above: Performed By: #### P OCGLUC #### [facility] [address] [address] [address] Deidre Tijerina RBC 3.18 106/ul Critically low 4.70-6.10 [facility] Comment on above: Performed By: #### P OCGLUC #### [facility] [address] [address] [address] Deidre Tijerina RDW 14.0 % Normal 11.0-15.0 [facility] Comment on above: Performed By: #### P OCGLUC #### [facility] [address] [address] [address] Deidre Tijerian SEG # 12.92 103/ul Critically high 1.40-6.50 [facility] Comment on above: Performed By: #### P OCGLUC #### [facility] [address] [address] [address] Deidre Tijerina SEG % 91.0 % Critically high 43.0-75.0 [facility] Comment on above: Performed By: #### P OCGLUC #### [facility] [address] [address] [address] Deidre Tijerina WBC 14.2 103/ul Critically high 4.0-11.0 [facility] Comment on above: Performed By: #### P OCGLUC #### [facility] [address] [address] [address] Deidre Tijerina POINT OF CARE GLUCOSEon 07-25 Glucose [Mass/Vol] 305 mg/dL Critically high [facility]106 [facility] Comment on above: Performed By: #### P OCGLUC #### [facility] [address] [address] [address] Deidre Tijerina Glucose [Mass/Vol] 181 mg/dL Critically high [address] [place] [address] Comment on above: Performed By: #### C BC #### [facility] [address] [address] [address] Deidre Tijerina Glucose [Mass/Vol] 342 mg/dL Critically high [facility]106 [facility] Comment on above: Performed By: #### P OCGLUC #### [facility] [address] [address] [address] Deidre Tijerina Glucose [Mass/Vol] 192 mg/dL Critically high [facility]106 [facility] Comment on above: Performed By: #### P OCGLUC #### [facility] [address] [address] [address] Deidre Tijerina PROF CHEM 8 (BAS METB)on Anion gap [Moles/Vol] 10.3 mmol/L [facility] Comment on above: Performed By: #### B MP, BNP #### [facility] [address] [address] [address] Deidre Tijerina Calcium [Mass/Vol] 7.9 mg/dL Critically low 8.5-10.1 Th e [facility] Comment on above: Performed By: #### B MP, BNP #### [facility] [address] [address] [address] Deidre Tijerina Chloride [Moles/Vol] 100 mmol/L Normal 98-107 [facility] Comment on above: Performed By: #### B MP, BNP #### [facility] [address] [address] [address] Deidre Tijerina CO2 [Moles/Vol] 26.6 mmol/L Normal 21.0-32.0 [facility] Comment on above: Performed By: #### B MP, BNP #### [facility] [address] [address] [address] Deidre Tijerina Creatinine [Mass/Vol] 1.29 mg/dL Normal 0.70-1.30 [facility] Comment on above: Performed By: #### B MP, BNP #### [facility] [address] [address] [address] Deidre Tijerina EGFR-AF COMORAN >60 Normal >=60 [facility] Comment on above: Performed By: #### B MP, BNP #### [facility] [address] [address] [address] Deidre Tijerina EGFR-NON AF COMORAN 54 mL/min/1.73m2 Critically low >=60 [facility] Comment on above: Performed By: #### B MP, BNP #### [facility] [address] [address] [address] Deidre Tijerina Glucose [Mass/Vol] 190 mg/dL Critically high 74-106 [facility] Comment on above: Performed By: #### B MP, BNP #### [facility] [address] [address] [address] Deidre Tijerina Potassium [Moles/Vol] 3.9 mmol/L Normal 3.5-5.1 [facility] Comment on above: Performed By: #### B MP, BNP #### [facility] [address] [address] [address] Deidre Tijerina Sodium [Moles/Vol] 133 mmol/L Critically low 136-145 Th e [facility] Comment on above: Performed By: #### B MP, BNP #### [facility] [address] [address] [address] Deidre Tijerina Urea nitrogen [Mass/Vol] 35.0 mg/dL Critically high 7.0-18.0 [facility] Comment on above: Performed By: #### B MP, BNP #### [facility] [address] [address] [address] Deidre Tijerina Urea nitrogen/Creatinine [Mass ratio] 27.1 mg/mg Normal [facility] Comment on above: Performed By: #### B MP, BNP #### [facility] [address] [address] [address] Deidre Tijerina BILIRUBIN CONJUGATED (DIRECT )on 08-18-2022 BILI, CONJUGATED 0.4 mg/dL Critically high 0.0-0.2 [facility] Comment on above: Performed By: #### P OCGLUC #### [facility] [address] [place] [address] Dr. Deidre Tijerina BLOOD GASES BTYon 08-18-2022 02 MODE BIPAP Normal [facility] Comment on above: Performed By: #### P OCGLUC #### [facility] [address] [address] [address] Deidre Tijerina ALLENS TEST Positive Normal [facility] Comment on above: Performed By: #### P OCGLUC #### [facility] [address] [address] [address] Deidre Tijerina Base excess Calc (Bld) [Moles/Vol] 1.0 mmol/L Normal -2.0-2.0 [facility] Comment on above: Performed By: #### P OCGLUC #### [facility] [address] [place] [address] Dr. Deidre Tijerina BIPAP PRESSURE 16/8 Normal [facility] Comment on above: Performed By: #### P OCGLUC #### [facility] [address] [address] [address] Deidre Tijerina CPAP [facility] Comment on above: Performed By: #### P OCGLUC #### [facility] [address] [address] [address] Deidre Tijerina FIO2 35.00 % Normal [facility] Comment on above: Performed By: #### P OCGLUC #### [facility] [address] [address] [address] Deidre Tijerina HCO3 (Bld) [Moles/Vol] 25.0 mmol/L Normal 22.0-26.0 [facility] Comment on above: Performed By: #### P OCGLUC #### [facility] [address] [place] [address] Dr. Deidre Tijerina LPM [facility] Comment on above: Performed By: #### P OCGLUC #### [facility] [address] [address] [address] Deidre Tijerina MINUTE VOLUME 21 L [facility] Comment on above: Performed By: #### P OCGLUC #### [facility] [address] [place] [address] Dr. Deidre Tijerina Oxygen (Bld) [Partial pressure] 83.4 mm[Hg] Normal 80.0-100.0 [facility] Comment on above: Performed By: #### P OCGLUC #### [facility] [address] [place] [address] Dr. Deidre Tijerina Oxygen saturation in Blood 97.5 % Normal 95.0-100.0 [facility] Comment on above: Performed By: #### P OCGLUC #### [facility] [address] [place] [address] Dr. Deidre Tijerina PCO2 36.2 mmHg Normal 35.0-45.0 [facility] Comment on above: Performed By: #### P OCGLUC #### [facility] [address] [address] [address] Deidre Tijerina PEEP 8 Normal [facility] Comment on above: Performed By: #### P OCGLUC #### [facility] [address] [address] [address] Deidre Tijerina pH (Bld) 7.440 [pH] Normal 7.350-7.450 [facility] Comment on above: Performed By: #### P OCGLUC #### [facility] [address] [address] [address] Deidre Tijerina PIP 17 [facility] Comment on above: Performed By: #### P OCGLUC #### [facility] [address] [address] [address] Deidre Tijerina PS 8 [facility] Comment on above: Performed By: #### P OCGLUC #### [facility] [address] [place] [address] Dr. Deidre Tijerina PUNCTURE SITE RR Normal [facility] Comment on above: Performed By: #### P OCGLUC #### [facility] [address] [address] [address] Deidre Tijerina RATE 14 bpm [facility] Comment on above: Performed By: #### P OCGLUC #### [facility] [address] [address] [address] Deidre Tijerina VENT MODE [facility] Comment on above: Performed By: #### P OCGLUC #### [facility] [address] [place] [address] Dr. Deidre Tijerina VT 945 ML [facility] Comment on above: Performed By: #### P OCGLUC #### [facility] [address] [address] [address] Deidre Tijerina BNPon 08-18-2022 Natriuretic peptide B (Bld) [Mass/Vol] 2561.0 pg/mL Critically high <=1,800.0 [facility] Comment on above: Performed By: #### P OCGLUC #### [facility] [address] [place] [address] Dr. Deidre Tijerina CBC W MANUAL DIFFon 08-18-20 ANISOCYTOSIS 1+ [facility] Comment on above: Performed By: #### C BCMAN #### [facility] [address] [address] [address] Deidre Tijerina ATYPICAL LYMPH # Normal [facility] Comment on above: Performed By: #### C BCMAN #### [facility] [address] [address] [address] Deidre Tijerina ATYPICAL LYMPH % Normal [facility] Comment on above: Performed By: #### C BCMAN #### [facility] [address] [address] [address] Deidre Tijerina BAND # 1.2 103/ul Critically high 0.0-0.3 [facility] Comment on above: Performed By: #### C BCMAN #### [facility] [address] [place] [address] Dr. Deidre Tijerina BAND % 7 % Critically high 0-5 [facility] Comment on above: Performed By: #### C BCNICOLASA #### [facility] [address] [place] [address] Dr. Deidre Tijerina BASOM # 0.00 103/ul Normal 0.00-0.10 [facility] Comment on above: Performed By: #### C BCNICOLASA #### [facility] [address] [place] [address] Dr. Deidre Tijerina BASOM % 0.0 % Critically low 0.2-2.0 [facility] Comment on above: Performed By: #### C BCMAN #### [facility] [address] [place] [address] Dr. Deidre Tijerina BLAST # Normal [facility] Comment on above: Performed By: #### C BCMAN #### [facility] [address] [place] [address] Dr. Deidre Tijerina BLAST % Normal [facility] Comment on above: Performed By: #### C BCMAN #### [facility] [address] [place] [address] Dr. Deidre Tijerina CORRECTED WBC Normal 4.0-11.0 [facility] Comment on above: Performed By: #### C ADALGISA #### [facility] [address] [place] [address] Dr. Deidre Tijerina EOS # 0.17 103/ul Normal 0.00-0.70 [facility] Comment on above: Performed By: #### C ADALGISA #### [facility] [address] [place] [address] Dr. Deidre Tijerina EOS% 1.0 % Normal 0.9-7.0 [facility] Comment on above: Performed By: #### C ADALGISA #### [facility] [address] [address] [address] Deidre Tijerina HCT 34.8 % Critically low 42.0-54.0 [facility] Comment on above: Performed By: #### C ADALGISA #### [facility] [address] [place] [address] Dr. Deidre Tijerina HGB 11.5 g/dl Critically low 14.0-18.0 [facility] Comment on above: Performed By: #### C ADALGISA #### [facility] [address] [place] [address] Dr. Deidre Tijerina LYMPHM # 1.20 103/ul Normal 1.20-3.80 [facility] Comment on above: Performed By: #### C ADALGISA #### [facility] [address] [place] [address] Dr. Deidre Tijerina LYMPHM% 7.0 % Critically low 20.5-60.0 [facility] Comment on above: Performed By: #### C ADALGISA #### [facility] [address] [place] [address] Dr. Deidre Tijerina MCH 31.5 pg Normal 25.9-34.0 [facility] Comment on above: Performed By: #### C ADALGISA #### [facility] [address] [place] [address] Dr. Deidre Tijerina MCHC 33.0 g/dl Normal 29.9-35.2 [facility] Comment on above: Performed By: #### C ADALGISA #### [facility] [address] [place] [address] Dr. Deidre Tijerina MCV 95.3 fL Critically high 80.0-94.0 [facility] Comment on above: Performed By: #### C ADALGISA #### [facility] [address] [address] [address] Deidre Tijerina METAMYELOCYTE # Normal [facility] Comment on above: Performed By: #### C ADALGISA #### [facility] [address] [address] [address] Deidre Tijerina METAMYELOCYTE % Normal [facility] Comment on above: Performed By: #### C ADALGISA #### [facility] [address] [address] [address] Deidre Tijerina MONOM# 1.03 103/ul Critically high 0.30-0.80 [facility] Comment on above: Performed By: #### C ADALGISA #### [facility] [address] [address] [address] Deidre Tijerina MONOM% 6.0 % Normal 1.7-12.0 [facility] Comment on above: Performed By: #### C ADALGISA #### [facility] [address] [address] [address] Deidre Tijerina MPV 8.7 fL Critically low 9.5-13.5 [facility] Comment on above: Performed By: #### C ADALGISA #### [facility] [address] [address] [address] Deidre Tijerina MYELOCYTE # Normal [facility] Comment on above: Performed By: #### C ADALGISA #### [facility] [address] [address] [address] Deidre Tijerina MYELOCYTE % Normal [facility] Comment on above: Performed By: #### C ADALGISA #### [facility] [address] [address] [address] Deidre Tijerina NRBC Normal [facility] Comment on above: Performed By: #### C ADALGISA #### [facility] [address] [address] [address] Deidre Tijerina PLT 212 103/ul Normal 150-450 [facility] Comment on above: Performed By: #### C ADALGISA #### [facility] [id number] Deidre Tijerina RBC 3.65 106/ul Critically low 4.70-6.10 [facility] Comment on above: Performed By: #### C ADALGISA #### [facility] [address] [address] [address] Deidre Tijerina RDW 14.0 % Normal 11.0-15.0 [facility] Comment on above: Performed By: #### C ADALGISA #### [facility] [address] [address] [address] Deidre Tijerina SEG # 13.59 103/ul Critically high 1.40-6.50 [facility] Comment on above: Performed By: #### C ADALGISA #### [facility] [address] [address] [address] Deidre Tijerina SEG % 79.0 % Critically high 43.0-75.0 [facility] Comment on above: Performed By: #### C ADALGISA #### [facility] [address] [address] [address] Deidre Tijerina WBC 17.2 103/ul Critically high 4.0-11.0 [facility] Comment on above: Performed By: #### C ADALGISA #### [facility] [id number] Deidre Tijerina CT CHEST WO CONon [...] NOREEN KELLY Date: 2022-08-18 12:12 Normal [facility] CULTURE BLOODon 08-18-2022 Microscopic examination of blood, culture Culture Observations: NO GROWTH AT 5 DAYS. Normal [facility] Comment on above: Performed By: #### C BC #### [facility] [address] [address] [address] Deidre Tijerina Microscopic examination of blood, culture Culture Observations: NO GROWTH AT 5 DAYS. Normal [facility] Comment on above: Performed By: #### C BC #### [facility] [address] [place] [address] Dr. Deidre Tijerina Covid-19 PCR ([facility])on 07-25 SARS-CoV-2 (COVID-19) RNA ISA+probe Ql (Unsp spec) Not detected Normal NOT DETECTED [facility] Comment on above: Result Comment: When diagnostic [...] for this test is supported by the [place] [employer]'s declaration that [...] used). Performed By: #### P OCGLUC #### [facility] [address] [place] [address] Dr. Deidre Tijerina ECHO LIMITED STUDYon 022 ECHO LIMITED STUDY Patient: UMM MCQUEEN Exam Date: 08/18/2022 : 1945 Gender:M Ordering : SHAIKH Zay CARRERA . Admission #: [id number] Family : Order #: [id number] CLICK HERE TO VIEW EXAM ECHOCARDIOGRAM REPORT [...] M.D. on 08/26/2022 at 09:00 Normal [facility] INFLUENZA A AND B AGon 08-18 INFLUANEGH SEE BELOW Normal [facility] Comment on above: Result Comment: Nega tive for Flu A protein angiten. Infection due to Flu A cannot be ruled out. Flu A angiten in the sample may be below the detection limit of the test. Performed By: #### P OCGLUC #### [facility] [address] [place] [address] Dr. Deid[facility]ijer[facility] Normal [facility] Comment on above: Result Comment: Nega tive for Flu B protein antigen. Infection due to Flu B cannot be ruled out. Flu B antigen in the sample may be below the detection limit of the test. Performed By: #### P OCGLUC #### [facility] [address] [place] [address] Dr. Deidre Tijerina INFLUENZA A AG Negative Normal NEGATIVE SEE COMMENT [facility] Comment on above: Performed By: #### P OCGLUC #### [facility] [address] [place] [address] Dr. Deidre Tijerina INFLUENZA B AG Negative Normal NEGATIVE SEE COMMENT [facility] Comment on above: Performed By: #### P OCGLUC #### [facility] [address] [place] [address] Dr. Deidre Tijerina INTERNAL CONTROLS Within Normal Limits Normal Wi thin Normal Limits [facility] Comment on above: Performed By: #### P OCGLUC #### [facility] [address] [place] [address] Dr. Deidre Tijerina LACTATE/LACTIC ACIDon 2021 Lactate [Moles/Vol] 2.0 mmol/L Critically high 0.4-1.9 [facility] Comment on above: Performed By: #### P OCGLUC #### [facility] [address] [place] [address] Dr. Deidre Tijerina Lactate [Moles/Vol] 2.0 mmol/L Critically high 0.4-1.9 [facility] Comment on above: Performed By: #### P OCGLUC #### [facility] [address] [address] [address] Deidre Tijerina POINT OF CARE GLUCOSEon 07-25 Glucose [Mass/Vol] 228 mg/dL Critically high -106 [facility] Comment on above: Performed By: #### P OCGLUC #### [facility] [address] [address] [address] Deidre Tijerina Glucose [Mass/Vol] 119 mg/dL Critically high -106 [facility] Comment on above: Performed By: #### P OCGLUC #### [facility] [address] [address] [address] Deidre Tijerina Glucose [Mass/Vol] 161 mg/dL Critically high [address] [place] [address] Comment on above: Performed By: #### C BC #### [facility] [address] [address] [address] Deidre Tijerina PROF 14(COMP METB)on 022 Albumin [Mass/Vol] 2.9 g/dL Critically low 3.4-5.0 [facility] Comment on above: Performed By: #### P OCGLUC #### [facility] [address] [place] [address] Dr. Deidre Tijerina Albumin/Globulin [Mass ratio] 0.6 {ratio} [facility] Comment on above: Performed By: #### P OCGLUC #### [facility] [address] [address] Dr. Deidre Tijerina ALP [Catalytic activity/Vol] 71 U/L Normal 46-116 [facility] Comment on above: Performed By: #### P OCGLUC #### [facility] [address] [address] [address] Deidre Tijerina ALT [Catalytic activity/Vol] 13 U/L Critically low 16-63 [facility] Comment on above: Performed By: #### P OCGLUC #### [facility] [address] [address] [address] Deidre Tijerina Anion gap [Moles/Vol] 12.3 mmol/L Normal [facility] Comment on above: Performed By: #### P OCGLUC #### [facility] [address] [address] [address] Deidre Tijerina AST [Catalytic activity/Vol] 14 U/L Critically low 15-37 [facility] Comment on above: Performed By: #### P OCGLUC #### [facility] [address] [address] [address] Deidre Tijerina Bilirubin [Mass/Vol] 2.6 mg/dL Critically high 0.2-1.0 [facility] Comment on above: Performed By: #### P OCGLUC #### [facility] [address] [address] [address] Deidre Tijerina Calcium [Mass/Vol] 8.5 mg/dL Normal 8.5-10.1 [facility] Comment on above: Performed By: #### P OCGLUC #### [facility] [address] [address] [address] Deidre Tijerina Chloride [Moles/Vol] 98 mmol/L Normal 98-107 [facility] Comment on above: Performed By: #### P OCGLUC #### [facility] [address] [address] [address] Deidre Tijerina CO2 [Moles/Vol] 26.0 mmol/L Normal 21.0-32.0 [facility] Comment on above: Performed By: #### P OCGLUC #### [facility] [address] [address] [address] Deidre Tijerina Creatinine [Mass/Vol] 1.43 mg/dL Critically high 0.70-1.30 [facility] Comment on above: Performed By: #### P OCGLUC #### [facility] [address] [address] [address] Deidre Tijerina EGFR-AF COMORAN 58 mL/min/1.73m2 Critically low >=60 [facility] Comment on above: Performed By: #### P OCGLUC #### [facility] [address] [address] [address] Deidre Tijerina EGFR-NON AF COMORAN 48 mL/min/1.73m2 Critically low >=60 [facility] Comment on above: Performed By: #### P OCGLUC #### [facility] [address] [address] [address] Deidre Tijerina Globulin (S) [Mass/Vol] 5.0 g/dL Normal [facility] Comment on above: Performed By: #### P OCGLUC #### [facility] [address] [address] [address] Deidre Tijerina Glucose [Mass/Vol] 165 mg/dL Critically high 74-106 [facility] Comment on above: Performed By: #### P OCGLUC #### [facility] [address] [address] [address] Deidre Tijerina Potassium [Moles/Vol] 4.3 mmol/L Normal 3.5-5.1 [facility] Comment on above: Performed By: #### P OCGLUC #### [facility] [address] [address] [address] Deidre Tijerina Protein [Mass/Vol] 7.9 g/dL Normal 6.4-8.2 [facility] Comment on above: Performed By: #### P OCGLUC #### [facility] [address] [address] [address] Deidre Tijerina Sodium [Moles/Vol] 132 mmol/L Critically low 136-145 [facility] Comment on above: Performed By: #### P OCGLUC #### [facility] [address] [address] [address] Deidre Tijerina Urea nitrogen [Mass/Vol] 25.0 mg/dL Critically high 7.0-18.0 [facility] Comment on above: Performed By: #### P OCGLUC #### [facility] [address] [address] [address] Deidre Tijerina Urea nitrogen/Creatinine [Mass ratio] 17.5 mg/mg Normal [facility] Comment on above: Performed By: #### P OCGLUC #### [facility] [address] [address] [address] Deidre Tijerina TROPONIN, HIGH SENSITIVITYon 08-18-2022 HSTROP 8.4 pg/mL Normal 4.0-76.1 [facility] Comment on above: Result Comment: CUT- OFF POINTS HAVE BEEN ESTABLISHED BASED ON THE FOURTH UNIVERSAL DEFINITIONS OF MYOCARDIAL INFARCTION. THE UPPER REFERENCE LIMIT (URL) OF TROPONIN, DEFINED THE 99TH PERCENTILE OF cTnI DISTRIBUTION IN A REFERENCE POPULATION, HAS BEEN CONFIRMED THE DECISION THRESHOLD FOR MA DIAGNOSIS. Performed By: #### P OCGLUC #### [facility] [address] [address] [address] Deidre Tijerina XR CHEST 1 Von [...] left costophrenic angle is excluded from the [id number]. 3. No overt edema, failure, pneumothorax, or sizable effusion noted within limits of study. 4. Old healed nondisplaced anterior right fifth rib fracture deformity faintly suggested. Electronically authenticated by: ESTUARDO GARCIAH Date: 2022-08-18 09:37 Normal [facility] NM STRESS/REST MULTIon 08-04 NM STRESS/REST MULTI Patient: ARIANNE MCQUEEN Exam Date: 08/04/2022 : 1945 Gender:M Ordering : DR CATINA SALAZAR M.D. Admission #: [id number] Family : Order #: [id number] CLICK HERE TO VIEW EXAM RADIOLOGY REPORT [...] Banks MD on 08/07/2022 at 08:29 Normal [facility] BNPon 07-14-2022 Natriuretic peptide B (Bld) [Mass/Vol] 164.0 pg/mL Normal <=1,800.0 [facility] Comment on above: Performed By: #### B SEE SUPERVISOR, BMP #### [facility] [address] [place] [address] Dr. Deidre Tijerina PROF CHEM 8 (BAS METB)on Anion gap [Moles/Vol] 9.2 mmol/L Normal [facility] Comment on above: Performed By: #### B SEE SUPERVISOR, BMP #### [facility] [address] [place] [address] Dr. Deidre Tijerina Calcium [Mass/Vol] 8.4 mg/dL Critically low 8.5-10.1 [facility] Comment on above: Performed By: #### B SEE SUPERVISOR, BMP #### [facility] [address] [place] [address] Dr. Deidre Tijerina Chloride [Moles/Vol] 106 mmol/L Normal 98-107 [facility] Comment on above: Performed By: #### B SEE SUPERVISOR, BMP #### [facility] [address] [address] [address] Deidre Tijerina CO2 [Moles/Vol] 27.0 mmol/L Normal 21.0-32.0 [facility] Comment on above: Performed By: #### B SEE SUPERVISOR, BMP #### [facility] [address] [address] [address] Deidre Tijerina Creatinine [Mass/Vol] 1.38 mg/dL Critically high 0.70-1.30 [facility] Comment on above: Performed By: #### B SEE SUPERVISOR, BMP #### [facility] [address] [address] [address] Deidre Tijerina EGFR-AF COMORAN =60 Normal >=60 [facility] Comment on above: Performed By: #### B SEE SUPERVISOR, BMP #### [facility] [address] [place] [address] Dr. Deidre Tijerina EGFR-NON AF COMORAN 50 mL/min/1.73m2 Critically low >=60 [facility] Comment on above: Performed By: #### B SEE SUPERVISOR, BMP #### [facility] [address] [place] [address] Dr. Deidre Tijerina Glucose [Mass/Vol] 95 mg/dL Normal 74-106 [facility] Comment on above: Performed By: #### B SEE SUPERVISOR, BMP #### [facility] [address] [address] [address] Deidre Tijerina Potassium [Moles/Vol] 5.2 mmol/L Critically high 3.5-5.1 [facility] Comment on above: Performed By: #### B SEE SUPERVISOR, BMP #### [facility] [address] [place] [address] Dr. Deidre Tijerina Sodium [Moles/Vol] 137 mmol/L Normal 136-145 [facility] Comment on above: Performed By: #### B SEE SUPERVISOR, BMP #### [facility] [address] [address] [address] Deidre Tijerina Urea nitrogen [Mass/Vol] 25.0 mg/dL Critically high 7.0-18.0 [facility] Comment on above: Performed By: #### B SEE SUPERVISOR, BMP #### [facility] [address], [place] [address] Dr. Deidre Tijerina Urea nitrogen/Creatinine [Mass ratio] 18.1 mg/mg Normal [facility] Comment on above: Performed By: #### B SEE SUPERVISOR, [facility] #### [facility] [address], [place] [address] Dr. Deidre Tijerina ECHOCARDIO M/2D COMPLETEon 0 05-08-2022 ECHOCARDIO M/2D COMPLETE Patient: ARIANNE MCQUEEN Exam Date: 05/08/2022 : 1945 Gender:M Ordering : DR CATINA SALAZAR M.D. Admission #: [id number] Family : DR MAL BARNES D.OFrnacine Order #: [id number] CLICK HERE TO VIEW EXAM ECHOCARDIOGRAM REPORT [...] Salazar M.D. on 05/09/2022 at 19:48 Normal [facility] XR LSPINE MIN 4 VIEWSon [...] NOREEN KELLY Date: 2022-05-08 10:47 Normal [facility] PROF CHEM 8 (BAS METB)on Anion gap [Moles/Vol] 6.8 mmol/L Normal [facility] Comment on above: Performed By: #### P OCGLUC #### [facility] [address] [address] [address] Deidre Tijerina Calcium [Mass/Vol] 8.8 mg/dL Normal 8.5-10.1 [facility] Comment on above: Performed By: #### P OCGLUC #### [facility] [address] [address] [address] Deidre Tijerina Chloride [Moles/Vol] 102 mmol/L Normal 98-107 [facility] Comment on above: Performed By: #### P OCGLUC #### [facility] [address] [address] [address] Deidre Tijerina CO2 [Moles/Vol] 28.1 mmol/L Normal 21.0-32.0 [facility] Comment on above: Performed By: #### P OCGLUC #### [facility] [address] [address] [address] Deidre Tijerina Creatinine [Mass/Vol] 1.84 mg/dL Critically high 0.70-1.30 [facility] Comment on above: Performed By: #### P OCGLUC #### [facility] [address] [address] [address] Deidre Tijerina EGFR-AF COMORAN 43 mL/min/1.73m2 Critically low >=60 [facility] Comment on above: Performed By: #### P OCGLUC #### [facility] [address] [address] [address] Deidre Tijerina EGFR-NON AF COMORAN 36 mL/min/1.73m2 Critically low >=60 [facility] Comment on above: Performed By: #### P OCGLUC #### [facility] [address] [address] [address] Deidre Tijerina Glucose [Mass/Vol] 112 mg/dL Critically high 74-106 [facility] Comment on above: Performed By: #### P OCGLUC #### [facility] [address] [address] [address] Deidre Tijerina Potassium [Moles/Vol] 4.9 mmol/L Normal 3.5-5.1 [facility] Comment on above: Performed By: #### P OCGLUC #### [facility] [address] [address] [address] Deidre Tijerina Sodium [Moles/Vol] 132 mmol/L Critically low 136-145 [facility] Comment on above: Performed By: #### P OCGLUC #### [facility] [address] [address] [address] Deidre Tijerina Urea nitrogen [Mass/Vol] 40.0 mg/dL Critically high 7.0-18.0 [facility] Comment on above: Performed By: #### P OCGLUC #### [facility] [address] [address] [address] Deidre Tijerina Urea nitrogen/Creatinine [Mass ratio] 21.7 mg/mg Normal [facility] Comment on above: Performed By: #### P OCGLUC #### [facility] [address] [address] [address] Deidre Tijerina PROF CHEM 8 (BAS METB)on Anion gap [Moles/Vol] 8.9 mmol/L Normal [facility] Comment on above: Performed By: #### B MP #### [facility] [address] [place] [address] Dr. Deidre Tijerina Calcium [Mass/Vol] 8.4 mg/dL Critically low 8.5-10.1 Th e [facility] Comment on above: Performed By: #### B MP #### [facility] [address] [address] [address] Deidre Tijerina Chloride [Moles/Vol] 102 mmol/L Normal 98-107 [facility] Comment on above: Performed By: #### B MP #### [facility] [address] [place] [address] Dr. Deidre Tijerina CO2 [Moles/Vol] 25.9 mmol/L Normal 21.0-32.0 [facility] Comment on above: Performed By: #### B MP #### [facility] [address] [place] [address] Dr. Deidre Tijerina Creatinine [Mass/Vol] 1.20 mg/dL Normal 0.70-1.30 [facility] Comment on above: Performed By: #### B MP #### [facility] [address] [place] [address] Dr. Deidre Tijerina EGFR-AF COMORAN >60 Normal >=60 [facility] Comment on above: Performed By: #### B MP #### [facility] [address] [place] [address] Dr. Deidre Tijerina EGFR-NON AF COMORAN 59 mL/min/1.73m2 Critically low >=60 [facility] Comment on above: Performed By: #### B MP #### [facility] [address] [address] [address] Deidre Tijerina Glucose [Mass/Vol] 117 mg/dL Critically high 74-106 [facility] Comment on above: Performed By: #### B MP #### [facility] [address] [place] [address] Dr. Deidre Tijerina Potassium [Moles/Vol] 4.8 mmol/L Normal 3.5-5.1 [facility] Comment on above: Performed By: #### B MP #### [facility] [address] [address] [address] Deidre Tijerina Sodium [Moles/Vol] 132 mmol/L Critically low 136-145 Th e [facility] Comment on above: Performed By: #### B MP #### [facility] [address] [address] [address] Deidre Tijerina Urea nitrogen [Mass/Vol] 25.0 mg/dL Critically high 7.0-18.0 [facility] Comment on above: Performed By: #### B MP #### [facility] [address] [address] [address] Deidre Tijerina Urea nitrogen/Creatinine [Mass ratio] 20.8 mg/mg Normal [facility] Comment on above: Performed By: #### B MP #### [facility] [address] [address] [address] Deidre Tijerina US CHESTon 08-05-2021 US CHEST Normal [facility] Comment on above: Order Comment: serom a in the chest needs a drain placed BASIC METABOLIC PANELon 05-24 Calcium [Mass/Vol] 8.4 mg/dL Low 8.6-10.3 [facility] Comment on above: Order Comment: this is not a nurse draw. lab draw pleaseNo: Do not add to previous draw Performed By: #### 0 0071 ####[facility] [facility] [place] [address], [facility] Chloride [Moles/Vol] 102 mmol/L Normal 98-107 [facility] Comment on above: Order Comment: this is not a nurse draw. lab draw pleaseNo: Do not add to previous draw Performed By: #### 0 0071 ####[facility] [place] [address], [facility] CO2 [Moles/Vol] 25 mmol/L Normal 21-31 [facility] Comment on above: Order Comment: this is not a nurse draw. lab draw pleaseNo: Do not add to previous draw Performed By: #### 0 0071 ####[facility] [facility] [place] [address], [facility] Creatinine [Mass/Vol] 2.56 mg/dL High 0.70-1.30 [facility] Comment on above: Order Comment: this is not a nurse draw. lab draw pleaseNo: Do not add to previous draw Performed By: #### 0 0071 ####[facility] [facility] [place] [address], [facility] eGFR- 30 ml/min/1.73sq m Abnormal >60 [facility] Comment on above: Order Comment: this is not a nurse draw. lab draw pleaseNo: Do not add to previous draw Result Comment: Calc ulation may not be valid for patients over 70 years Performed By: #### 0 0071 ####[place] [id number] [address] eGFR- non- 24 ml/min/1.73sq m Abnormal >60 [facility] Comment on above: Order Comment: this is not a nurse draw. lab draw pleaseNo: Do not add to previous draw Result Comment: Calc ulation may not be valid for patients over 70 years Performed By: #### 0 0071 ####[place] [id number] [facility] [place] [address], [facility] Glucose [Mass/Vol] 182 mg/dL High 70-100 [facility] Comment on above: Order Comment: this is not a nurse draw. lab draw pleaseNo: Do not add to previous draw Performed By: #### 0 0071 ####[place] [address], [facility] Potassium [Moles/Vol] 4.5 mmol/L Normal 3.5-5.1 [facility] Comment on above: Order Comment: this is not a nurse draw. lab draw pleaseNo: Do not add to previous draw Performed By: #### 0 0071 ####[facility] [place] [address], [facility] Sodium [Moles/Vol] 133 mmol/L Low 136-[address] [facility] Comment on above: Order Comment: this is not a nurse draw. lab draw pleaseNo: Do not add to previous draw Performed By: #### 0 0071 ####[facility] [place] [address], [facility] Urea nitrogen [Mass/Vol] 28 mg/dL High 7-25 [facility] Comment on above: Order Comment: this is not a nurse draw. lab draw pleaseNo: Do not add to previous draw Performed By: #### 0 0071 ####[facility] [facility] [place] [address], [facility] POC GLUCOSE LABon 06-02-2021 Glucose [Mass/Vol] 246 mg/dL High 70-[address] [facility] Comment on above: Performed By: #### [id number] ####[facility] [facility] [place] [address], [facility] Glucose [Mass/Vol] 109 mg/dL High 70-[address] [facility] Comment on above: Performed By: #### [id number] ####[facility] [facility].[address] POC SARS COV2 ANTIGEN NEGATI VEon 06-02-2021 POC SARS COV2 ANTIGEN NEG Negative Normal NEGATIVE [facility] Comment on above: Result Comment: [...] forthe qualitative detection of nucleocapsid protein antigen [id number] in direct nasal swabs from individuals within [...] Certificate ofAccreditation. Performed By: #### 3 1976 ####[place] [id number] [facility].[address] POC SARS COV2 ANTIGEN NEG Negative Normal NEGATIVE [facility] Comment on above: Result Comment: [...] forthe qualitative detection of nucleocapsid protein antigen [id number] in direct nasal swabs from individuals within [...] Certificate ofAccreditation. Performed By: #### 3 1976 ####[facility] [facility] [place] [address], [facility] POC GLUCOSE LABon 06-01-2021 Glucose [Mass/Vol] 142 mg/dL High 70-[address] [facility] Comment on above: Performed By: #### [id number] ####[facility] [facility] [place] [address], [facility] Glucose [Mass/Vol] 132 mg/dL High 70-[address] [facility] Comment on above: Performed By: #### [id number] ####[facility] [facility] [place] [address], [facility] Glucose [Mass/Vol] 167 mg/dL High 70-[address] [facility] Comment on above: Performed By: #### [id number] ####[place] [id number] [facility] [place] [address], [facility] Glucose [Mass/Vol] 113 mg/dL High 70-[address] [facility] Comment on above: Performed By: #### [id number] ####[facility] [facility].[address] APTTon 05-31-2021 aPTT Coag (Bld) [Time] 29.3 s Normal 25.0-35.0 [facility] Comment on above: Result Comment: ALL RESULTS [...] THIS PURPOSE. Performed By: #### 5 [id number], [id number] ####[facility] [facility] [place] [address], [facility] CBC W/DIFFon 05-31-2021 ABS IMM GRANS 0.1 10*3/uL Normal 0.0-0.2 [facility] Comment on above: Order Comment: No: D o not add to previous draw Performed By: #### 5 3 ####[facility] [place] [address], [facility] ABS NEUTROPHILS 4.9 10*3/uL Normal 1.6-7.6 [facility] Comment on above: Order Comment: No: D o not add to previous draw Performed By: #### 5 3 ####[facility] [facility] [place] [address], [facility] Basophils (Bld) [#/Vol] 0.1 10*3/uL Normal 0.0-0.2 [facility] Comment on above: Order Comment: No: D o not add to previous draw Performed By: #### 5 3 ####[facility] [facility] [place] [address], [facility] Basophils/100 WBC (Bld) 0.6 % Normal 0.0-1.0 [facility] Comment on above: Order Comment: No: D o not add to previous draw Performed By: #### 5 3 ####[facility] [place] [address], [facility] Eosinophils (Bld) [#/Vol] 0.4 10*3/uL Normal 0.0-0.5 [facility] Comment on above: Order Comment: No: D o not add to previous draw Performed By: #### 5 3 ####[facility] [facility] [place] [address], [facility] Eosinophils/100 WBC (Bld) 5.3 % Normal 0.0-6.0 [facility] Comment on above: Order Comment: No: D o not add to previous draw Performed By: #### 5 3 ####[facility] [place] [address], [facility] Erythrocyte distribution width (RBC) [Ratio] 15.7 % High 11.5-15.0 The [facility] Comment on above: Order Comment: No: D o not add to previous draw Performed By: #### 5 0103 ####[facility] [facility].[address] Hematocrit (Bld) [Volume fraction] 27.6 % Low 39.0-50.0 The [facility] Comment on above: Order Comment: No: D o not add to previous draw Performed By: #### 5 0103 ####[facility] [facility] [place] [address], [facility] Hemoglobin (Bld) [Mass/Vol] 8.5 g/dL Low 13.0-17.0 The [facility] Comment on above: Order Comment: No: D o not add to previous draw Performed By: #### 5 0103 ####[facility] IMMATURE GRANS 1.1 % High 0.0-1.0 The [facility] Comment on above: Order Comment: No: D o not add to previous draw Performed By: #### 5 0103 ####[facility] [facility].[address] Lymphocytes (Bld) [#/Vol] 1.7 10*3/uL Normal 1.2-4.0 The [facility] Comment on above: Order Comment: No: D o not add to previous draw Performed By: #### 5 0103 ####[facility] [facility].[address] Lymphocytes/100 WBC (Bld) 21.4 % Normal 20.0-45.0 The [facility] Comment on above: Order Comment: No: D o not add to previous draw Performed By: #### 5 0103 ####[facility] [place] [address], [facility] MCH (RBC) [Entitic mass] 29.2 pg Normal 27.0-33.0 The [facility] Comment on above: Order Comment: No: D o not add to previous draw Performed By: #### 5 0103 ####[facility] MCHC (RBC) [Mass/Vol] 30.8 g/dL Low 32.0-35.0 The [facility] Comment on above: Order Comment: No: D o not add to previous draw Performed By: #### 5 0103 ####[facility] [facility].[address] MCV (RBC) [Entitic vol] 94.8 fL Normal 82.0-98.0 The [facility] Comment on above: Order Comment: No: D o not add to previous draw Performed By: #### 5 0103 ####[facility] Monocytes (Bld) [#/Vol] 0.8 10*3/uL Normal 0.1-1.0 The [facility] Comment on above: Order Comment: No: D o not add to previous draw Performed By: #### 5 0103 ####[facility] MONOS 9.7 % Normal 5.0-12.0 The [facility] Comment on above: Order Comment: No: D o not add to previous draw Performed By: #### 5 0103 ####[facility] [facility].[address] Neutrophils/100 WBC (Bld) 61.9 % Normal 40.0-72.0 The [facility] Comment on above: Order Comment: No: D o not add to previous draw Performed By: #### 5 0103 ####[facility] Nucleated RBC/100 WBC (Bld) [Ratio] 0 % Normal 0-0 The [facility] Comment on above: Order Comment: No: D o not add to previous draw Performed By: #### 5 3 ####[facility] [place] [address], [facility] PLAT CNT 351 10*3/uL Normal 150-400 The [facility] Comment on above: Order Comment: No: D o not add to previous draw Performed By: #### 5 0103 ####[facility] [facility] [place] [address], [facility] RBC (Bld) [#/Vol] 2.91 10*6/uL Low 4.20-5.70 The [facility] Comment on above: Order Comment: No: D o not add to previous draw Performed By: #### 5 0103 ####[facility] [facility] [place] [address], [facility] WBC (Bld) [#/Vol] 7.96 10*3/uL Normal 4.00-10.60 The [facility] Comment on above: Order Comment: No: D o not add to previous draw Performed By: #### 5 0103 ####[facility] [facility].[address] COMP METABOLIC PANELon 05-31 Albumin [Mass/Vol] 2.9 g/dL Low 3.5-5.7 [facility] Comment on above: Order Comment: No: D o not add to previous drawNurse draw Performed By: #### 1 0, 49011 ####[facility] [facility].[address] ALKALINE PHOSPH 70 IU/L Normal 34-104 [facility] Comment on above: Order Comment: No: D o not add to previous drawNurse draw Performed By: #### 1 0070, 08364 ####[facility] ALT [Catalytic activity/Vol] 9 U/L Normal 7-52 The [facility] Comment on above: Order Comment: No: D o not add to previous drawNurse draw Performed By: #### 1 0, 50240 ####[facility] [place] [address], [place] AST [Catalytic activity/Vol] 11 U/L Low 13-39 [facility] Comment on above: Order Comment: No: D o not add to previous drawNurse draw Performed By: #### 1 0, 56510 ####[facility] [place] [address], [place] Bilirubin [Mass/Vol] 0.6 mg/dL Normal 0.3-1.0 [facility] Comment on above: Order Comment: No: D o not add to previous drawNurse draw Performed By: #### 1 69, 73192 ####[facility] [place] [address], [place] Calcium [Mass/Vol] 8.4 mg/dL Low 8.6-10.[address] [facility] Comment on above: Order Comment: No: D o not add to previous drawNurse draw Performed By: #### 1 69, 78307 ####[facility] [place] [address], [place] Chloride [Moles/Vol] 102 mmol/L Normal 98-107 The [facility] Comment on above: Order Comment: No: D o not add to previous drawNurse draw Performed By: #### 1 69, 43209 ####[facility] [place] [address], [place] CO2 [Moles/Vol] 27 mmol/L Normal 21-31 The [facility] Comment on above: Order Comment: No: D o not add to previous drawNurse draw Performed By: #### 1 0, 65926 ####[facility] [place] [address], [place] Creatinine [Mass/Vol] 2.90 mg/dL High 0.70-1.30 [facility] Comment on above: Order Comment: No: D o not add to previous drawNurse draw Performed By: #### 1 0070, 59485 ####[facility] [place] [address], [facility] eGFR- 26 ml/min/1.73sq m Abnormal >60 The [facility] Comment on above: Order Comment: No: D o not add to previous drawNurse draw Result Comment: Calc ulation may not be valid for patients over 70 years Performed By: #### 1 0070, 78961 ####[facility] [place] [address], [facility] eGFR- non- 21 ml/min/1.73sq m Abnormal >60 The [facility] Comment on above: Order Comment: No: D o not add to previous drawNurse draw Result Comment: Calc ulation may not be valid for patients over 70 years Performed By: #### 1 0, 30430 ####[facility] [place] [address], [place] Glucose [Mass/Vol] 97 mg/dL Normal 70-[address] [facility] Comment on above: Order Comment: No: D o not add to previous drawNurse draw Performed By: #### 1 0, 72214 ####[facility] [place] [address], [place] Potassium [Moles/Vol] 4.4 mmol/L Normal 3.5-5.1 [facility] Comment on above: Order Comment: No: D o not add to previous drawNurse draw Performed By: #### 1 0070, 68349 ####[facility] [place] [address], [place] Protein [Mass/Vol] 6.5 g/dL Normal 6.0-8.3 [facility] Comment on above: Order Comment: No: D o not add to previous drawNurse draw Performed By: #### 1 0070, 68510 ####[facility] [place] [address], [place] Sodium [Moles/Vol] 134 mmol/L Low 136-[address] [facility] Comment on above: Order Comment: No: D o not add to previous drawNurse draw Performed By: #### 1 0, 33092 ####[facility] [place] [address], [place] Urea nitrogen [Mass/Vol] 31 mg/dL High 7-25 The [facility] Comment on above: Order Comment: No: D o not add to previous drawNurse draw Performed By: #### 1 69, 13659 ####[facility] [place] [address], [place] MAGNESIUM BLOODon 05-31-2021 Magnesium [Mass/Vol] 1.8 mg/dL Low 1.9-2.7 The [facility] Comment on above: Performed By: #### 1 69, 61264 ####[facility] [place] [address], [place] POC GLUCOSE LABon 05-31-2021 Glucose [Mass/Vol] 120 mg/dL High 70-[address] [facility] Comment on above: Performed By: #### 8 5499 ####[facility] [place] [address], [place] Glucose [Mass/Vol] 124 mg/dL High 70-[address] [facility] Comment on above: Performed By: #### 8 7709 ####[facility] [place] [address], [place] Glucose [Mass/Vol] 136 mg/dL High 70-[address] [facility] Comment on above: Performed By: #### 8 5499 ####[facility] [place] [address], [place] Glucose [Mass/Vol] 115 mg/dL High 70-100 [facility] Comment on above: Performed By: #### 8 5499 ####[facility] [place] [address], [facility] PORTABLE CHEST 1 VIEWon PORTABLE CHEST 1 VIEW Normal The [facility] Comment on above: Order Comment: evalu ate for CHF PROTHROMBIN TIMEon INR Coag (PPP) [Relative time] 1.13 {INR} Normal 0.91-1.16 [facility] Comment on above: Result Comment: ACCC P RECOMMENDED INR FOR WARFARIN THERAPY CONDITION INRPROPHYLAXIS OF VENOUS THROMBOSIS 2-3(HIGH-RISK SURGERY)TREATMENT OF VENOUS THROMBOSIS 2-3TREATMENT OF PULMONARY EMBOLISM 2-3PREVENTION OF SYSTEMIC EMBOLISM: 2-3 ACUTE MYOCARDIAL INFARCTION TISSUE HEART VALVES VALVULAR HEART DISEASE ATRIAL FIBRILLATION RECURRENT SYSTEMIC EMBOLISMMECHANICAL HEART VALVE 2.5-3.5 FROM: ORAL ANTICOAGULANTS. MECHANISM OF ACTION, CLINICALEFFECTIVENESS, AND OPTIMAL THERAPEUTIC RANGE. [id number]. Performed By: #### 5 7307, 18142 ####[facility] [facility] [place] [address], [facility] PT Coag (PPP) [Time] 14.5 s Normal 12.3-14.8 [facility] Comment on above: Result Comment: ALL RESULTS MUST BE INTERPRETED WITH RESPECT TO BLOOD DRAWING ARTIFACTOR DILUTION ERROR OF ANTICOAGULANT AT THE TIME OF SAMPLING. Performed By: #### 5 7313, 13054 ####[facility] [place] [address], [facility] ALBUMIN BLOODon 05-30-2021 Albumin [Mass/Vol] 3.0 g/dL Low 3.5-5.[address] [facility] Comment on above: Performed By: #### 1 69, , ####[facility] [place] [address], [facility] BASIC METABOLIC PANELon Calcium [Mass/Vol] 8.6 mg/dL Normal 8.6-10.[address] [facility] Comment on above: Order Comment: No: D o not add to previous draw Performed By: #### 1 69, , ####[facility] [place] [address], [facility] Chloride [Moles/Vol] 102 mmol/L Normal 98-107 [facility] Comment on above: Order Comment: No: D o not add to previous draw Performed By: #### 1 69, , ####[facility] [place] [address], [facility] CO2 [Moles/Vol] 25 mmol/L Normal 21-31 [facility] Comment on above: Order Comment: No: D o not add to previous draw Performed By: #### 1 69, , ####[facility] [place] [address], [facility] Creatinine [Mass/Vol] 2.49 mg/dL High 0.70-1.30 [facility] Comment on above: Order Comment: No: D o not add to previous draw Performed By: #### 1 69, , ####[facility] [place] [address], [facility] eGFR- 31 ml/min/1.73sq m Abnormal >60 The [facility] Comment on above: Order Comment: No: D o not add to previous draw Result Comment: Calc ulation may not be valid for patients over 70 years Performed By: #### 1 69, , 60696 ####[facility] [place] [address], [facility] eGFR- non- 25 ml/min/1.73sq m Abnormal >60 The [facility] Comment on above: Order Comment: No: D o not add to previous draw Result Comment: Calc ulation may not be valid for patients over 70 years Performed By: #### 1 0, , ####[facility] [place] [address], [facility] Glucose [Mass/Vol] 100 mg/dL Normal 70-[address] [facility] Comment on above: Order Comment: No: D o not add to previous draw Performed By: #### 1 69, , ####[facility] [place] [address], [place] Potassium [Moles/Vol] 4.5 mmol/L Normal 3.5-5.1 [facility] Comment on above: Order Comment: No: D o not add to previous draw Performed By: #### 1 69, , ####[facility] [id number], [place] Sodium [Moles/Vol] 134 mmol/L Low 136-[address] [facility] Comment on above: Order Comment: No: D o not add to previous draw Performed By: #### 1 69, , 01388 ####[facility] [id number], [place] Urea nitrogen [Mass/Vol] 32 mg/dL High 7-25 [facility] Comment on above: Order Comment: No: D o not add to previous draw Performed By: #### 1 69, , ####[facility] CBC COMPLETE BLOOD COUNTon Erythrocyte distribution width (RBC) [Ratio] 15.7 % High 11.5-15.0 [facility] Comment on above: Order Comment: No: D o not add to previous draw Performed By: #### 5 0608 ####[address] Hematocrit (Bld) [Volume fraction] 26.5 % Low 39.0-50.0 [facility] Comment on above: Order Comment: No: D o not add to previous draw Performed By: #### 5 0608 ####[address] Hemoglobin (Bld) [Mass/Vol] 8.4 g/dL Low 13.0-17.0 [facility] Comment on above: Order Comment: No: D o not add to previous draw Performed By: #### 5 0608 ####[address] MCH (RBC) [Entitic mass] 28.9 pg Normal 27.0-33.0 [facility] Comment on above: Order Comment: No: D o not add to previous draw Performed By: #### 5 0608 ####[address] MCHC (RBC) [Mass/Vol] 31.7 g/dL Low 32.0-35.0 [facility] Comment on above: Order Comment: No: D o not add to previous draw Performed By: #### 5 0608 ####[address] MCV (RBC) [Entitic vol] 91.1 fL Normal 82.0-98.0 [facility] Comment on above: Order Comment: No: D o not add to previous draw Performed By: #### 5 0608 ####[facility] [facility] [place] [address], [facility] Nucleated RBC/100 WBC (Bld) [Ratio] 0 % Normal 0-0 [facility] Comment on above: Order Comment: No: D o not add to previous draw Performed By: #### 5 0608 ####[facility] [facility] [place] [address], [facility] PLAT CNT 338 10*3/uL Normal 150-400 The [facility] Comment on above: Order Comment: No: D o not add to previous draw Performed By: #### 5 0608 ####[facility] [facility] [place] [address], [facility] RBC (Bld) [#/Vol] 2.91 10*6/uL Low 4.20-5.70 The [facility] Comment on above: Order Comment: No: D o not add to previous draw Performed By: #### 5 0608 ####[facility] [facility] [place] [address], [facility] WBC (Bld) [#/Vol] 7.23 10*3/uL Normal 4.00-10.60 [facility] Comment on above: Order Comment: No: D o not add to previous draw Performed By: #### 5 0608 ####[facility] [facility] [place] [address], [facility] CREATININE URINE RANDOMon Creatinine (U) [Mass/Vol] 39.0 mg/dL Normal The [facility] Comment on above: Order Comment: No: D o not add to previous draw Result Comment: Ther e are no established reference values for random urine specimens Performed By: #### 2 5706, 82896 ####[facility] [facility] [place] [address], [facility] MAGNESIUM BLOODon 05-30-2021 Magnesium [Mass/Vol] 1.9 mg/dL Normal 1.9-2.7 [facility] Comment on above: Order Comment: No: D o not add to previous draw Performed By: #### 1 0070, 65596, 76225 ####[facility] [place] [address], [facility] POC GLUCOSE LABon 05-30-2021 Glucose [Mass/Vol] 155 mg/dL High 70-[address] [facility] Comment on above: Performed By: #### 8 5499 ####[facility] [place] [address], [place] Glucose [Mass/Vol] 129 mg/dL High 70-[address] [facility] Comment on above: Performed By: #### 8 5499 ####[facility] [place] [address], [place] Glucose [Mass/Vol] 147 mg/dL High 70-[address] [facility] Comment on above: Performed By: #### 8 5499 ####[facility] [place] [address], [facility] PORTABLE CHEST 1 VIEWon 10-0 PORTABLE CHEST 1 VIEW Normal [facility] Comment on above: Order Comment: Evalu ate for Atelectasis T PROT UR Isi 05-30-2021 U TOTAL PROTEIN 88.8 mg/dL Normal [facility] Comment on above: Order Comment: No: D o not add to previous draw Result Comment: Ther e are no established reference values for random urine specimens Performed By: #### 2 5706, 43322 ####[facility] [facility] [place] [place] [address], [facility] URINE TRINH STAIN/EOSon EOSINOPHIL SMEAR NONE SEEN Normal NSN The [facility] Comment on above: Order Comment: No: D o not add to previous draw [place] Normal The [facility] Comment on above: Order Comment: No: D o not add to previous draw Result Comment: Test Performed by [id number] [place] [id number] - Released 05/30/2021 20:40 US RENALon 05-30-2021 US RENAL Normal [facility] Comment on above: Order Comment: Other , FREDA BASIC METABOLIC PANELon 10-0 Calcium [Mass/Vol] 8.4 mg/dL Low 8.6-10.3 [facility] Comment on above: Order Comment: No: D o not add to previous draw Performed By: #### 4 1000, 99918, 44807 ####[facility] [place] [address], [facility] Chloride [Moles/Vol] 102 mmol/L Normal 98-107 [facility] Comment on above: Order Comment: No: D o not add to previous draw Performed By: #### 4 1000, 26247, 64098 ####[facility] [place] [address], [facility] CO2 [Moles/Vol] 25 mmol/L Normal 21-31 [facility] Comment on above: Order Comment: No: D o not add to previous draw Performed By: #### 4 1000, 53927, 97876 ####[facility] [place] [address], [facility] Creatinine [Mass/Vol] 2.12 mg/dL High 0.70-1.30 [facility] Comment on above: Order Comment: No: D o not add to previous draw Performed By: #### 4 1000, 08312, 61345 ####[facility] [place] [address], [facility] eGFR- 37 ml/min/1.73sq m Abnormal >60 The [facility] Comment on above: Order Comment: No: D o not add to previous draw Result Comment: Calc ulation may not be valid for patients over 70 years Performed By: #### 4 1000, 01702, 23005 ####[facility] eGFR- non- 30 ml/min/1.73sq m Abnormal >60 [facility] Comment on above: Order Comment: No: D o not add to previous draw Result Comment: Calc ulation may not be valid for patients over 70 years Performed By: #### 4 1000, 41662, 36445 ####[facility] [place] [address], [facility] Glucose [Mass/Vol] 103 mg/dL High 70-[address] [facility] Comment on above: Order Comment: No: D o not add to previous draw Performed By: #### 4 1000, 80377, 63877 ####[facility] [place] [address], [facility] Potassium [Moles/Vol] 4.6 mmol/L Normal 3.5-5.1 [facility] Comment on above: Order Comment: No: D o not add to previous draw Performed By: #### 4 999, 26150, 21694 ####[facility] [facility] [place] [address], [facility] Sodium [Moles/Vol] 133 mmol/L Low 136-[address] [facility] Comment on above: Order Comment: No: D o not add to previous draw Performed By: #### 4 999, 75158, 78275 ####[facility] [facility] [place] [address], [facility] Urea nitrogen [Mass/Vol] 33 mg/dL High 7-25 [facility] Comment on above: Order Comment: No: D o not add to previous draw Performed By: #### 4 1000, 70311, 23008 ####[facility] [place] [address], [facility] CBC COMPLETE BLOOD COUNTon Erythrocyte distribution width (RBC) [Ratio] 15.7 % High 11.5-15.0 The [facility] Comment on above: Order Comment: No: D o not add to previous draw Performed By: #### 5 0608 ####[facility] Hematocrit (Bld) [Volume fraction] 26.4 % Low 39.0-50.0 [facility] Comment on above: Order Comment: No: D o not add to previous draw Performed By: #### 5 0608 ####[facility] [place] [address] Hemoglobin (Bld) [Mass/Vol] 8.4 g/dL Low 13.0-17.0 [facility] Comment on above: Order Comment: No: D o not add to previous draw Performed By: #### 5 0608 ####[address] MCH (RBC) [Entitic mass] 29.0 pg Normal 27.0-33.0 [facility] Comment on above: Order Comment: No: D o not add to previous draw Performed By: #### 5 0608 ####[address] MCHC (RBC) [Mass/Vol] 31.8 g/dL Low 32.0-35.0 [facility] Comment on above: Order Comment: No: D o not add to previous draw Performed By: #### 5 0608 ####[facility] [place] [address] MCV (RBC) [Entitic vol] 91.0 fL Normal 82.0-98.0 [facility] Comment on above: Order Comment: No: D o not add to previous draw Performed By: #### 5 0608 ####[address] Nucleated RBC/100 WBC (Bld) [Ratio] 0 % Normal 0-0 The [facility] Comment on above: Order Comment: No: D o not add to previous draw Performed By: #### 5 0608 ####[facility] [place] [address], [facility] PLAT CNT 346 10*3/uL Normal 150-400 The [facility] Comment on above: Order Comment: No: D o not add to previous draw Performed By: #### 5 0608 ####[facility] [place] [address], [facility] RBC (Bld) [#/Vol] 2.90 10*6/uL Low 4.20-5.70 The [facility] Comment on above: Order Comment: No: D o not add to previous draw Performed By: #### 5 0608 ####[facility] [facility] [place] [address], [facility] WBC (Bld) [#/Vol] 7.17 10*3/uL Normal 4.00-10.60 The [facility] Comment on above: Order Comment: No: D o not add to previous draw Performed By: #### 5 0608 ####[facility] [facility].[address] MAGNESIUM BLOODon 05-29-2021 Magnesium [Mass/Vol] 1.9 mg/dL Normal 1.9-2.7 [facility] Comment on above: Order Comment: No: D o not add to previous draw Performed By: #### 4 999, 53505, 73732 ####[facility] [place] [address], [facility] PHOSPHORUS BLOODon Phosphate [Mass/Vol] 4.4 mg/dL Normal 2.5-5.0 [facility] Comment on above: Order Comment: No: D o not add to previous draw Performed By: #### 4 999, 37872, 90956 ####[facility] [place] [address], [place] POC GLUCOSE LABon 05-29-2021 Glucose [Mass/Vol] 183 mg/dL High 70-[address] [facility] Comment on above: Performed By: #### 8 5499 ####[facility] [place] [address], [place] Glucose [Mass/Vol] 124 mg/dL High 70-[address] [facility] Comment on above: Performed By: #### 8 5499 ####[facility] [place] [address], [place] Glucose [Mass/Vol] 187 mg/dL High 70-[address] [facility] Comment on above: Performed By: #### 8 5499 ####[facility] [place] [address], [place] Glucose [Mass/Vol] 189 mg/dL High 70-[address] [facility] Comment on above: Performed By: #### 8 5499 ####[facility] [facility] [place] [address], [facility] PORTABLE CHEST 1 VIEWon PORTABLE CHEST 1 VIEW Normal The [facility] Comment on above: Order Comment: evalu ate for Atelectasis BASIC METABOLIC PANELon Calcium [Mass/Vol] 8.3 mg/dL Low 8.6-10.[address] [facility] Comment on above: Order Comment: No: D o not add to previous draw Performed By: #### 2 5508, 88272, 41615, 35269 ####[facility] [place] [address], [place] Chloride [Moles/Vol] 99 mmol/L Normal 98-107 [facility] Comment on above: Order Comment: No: D o not add to previous draw Performed By: #### 2 5508, 61362, 58549, 53731 ####[facility] [place] [address], [facility] CO2 [Moles/Vol] 26 mmol/L Normal 21-31 [facility] Comment on above: Order Comment: No: D o not add to previous draw Performed By: #### 2 5508, 01719, 88316, 14758 ####[facility] [facility] [place] [address], [facility] Creatinine [Mass/Vol] 2.18 mg/dL High 0.70-1.30 [facility] Comment on above: Order Comment: No: D o not add to previous draw Performed By: #### 2 5508, 48160, 91129, 75058 ####[facility] [facility] [place] [address], [facility] eGFR- 36 ml/min/1.73sq m Abnormal >60 The [facility] Comment on above: Order Comment: No: D o not add to previous draw Result Comment: Calc ulation may not be valid for patients over 70 years Performed By: #### 2 5508, 05249, 29162, 57855 ####[facility] [facility] [place] [address], [facility] eGFR- non- 29 ml/min/1.73sq m Abnormal >60 The [facility] Comment on above: Order Comment: No: D o not add to previous draw Result Comment: Calc ulation may not be valid for patients over 70 years Performed By: #### 2 5508, 88524, 07248, 80849 ####[facility] [place] [address], [facility] Glucose [Mass/Vol] 100 mg/dL Normal 70-100 [facility] Comment on above: Order Comment: No: D o not add to previous draw Performed By: #### 2 5508, 15589, 58709, 02595 ####[facility], [address] Potassium [Moles/Vol] 5.3 mmol/L High 3.5-5.1 [facility] Comment on above: Order Comment: No: D o not add to previous draw Performed By: #### 2 5508, 38022, 52133, 56613 ####[facility] [facility] [place] [address], [facility] Sodium [Moles/Vol] 131 mmol/L Low 136-[address] [facility] Comment on above: Order Comment: No: D o not add to previous draw Performed By: #### 2 5508, 86630, 39261, 92966 ####[facility] [facility].[address] Urea nitrogen [Mass/Vol] 33 mg/dL High 7-25 [facility] Comment on above: Order Comment: No: D o not add to previous draw Performed By: #### 2 5508, 89624, 98022, 62748 ####[facility] [facility].[address] CBC W/DIFFon 05-28-2021 ABS IMM GRANS 0.2 10*3/uL Normal 0.0-0.2 The [facility] Comment on above: Performed By: #### 5 0103 ####[facility] [facility].[address] ABS NEUTROPHILS 5.6 10*3/uL Normal 1.6-7.6 The [facility] Comment on above: Performed By: #### 5 0103 ####[facility] [facility] [place] [address], [facility] Basophils (Bld) [#/Vol] 0.0 10*3/uL Normal 0.0-0.2 [facility] Comment on above: Performed By: #### 5 0103 ####[facility] [facility].[address] Basophils/100 WBC (Bld) 0.5 % Normal 0.0-1.0 [facility] Comment on above: Performed By: #### 5 0103 ####[facility] [facility].[address] Eosinophils (Bld) [#/Vol] 0.4 10*3/uL Normal 0.0-0.5 [facility] Comment on above: Performed By: #### 5 0103 ####[facility] [facility] [place] [address], [facility] Eosinophils/100 WBC (Bld) 4.5 % Normal 0.0-6.0 [facility] Comment on above: Performed By: #### 5 0103 ####[place] [id number] [address] Erythrocyte distribution width (RBC) [Ratio] 15.6 % High 11.5-15.0 [facility] Comment on above: Performed By: #### 5 0103 ####[facility] Hematocrit (Bld) [Volume fraction] 27.7 % Low 39.0-50.0 [facility] Comment on above: Performed By: #### 5 0103 ####[facility] Hemoglobin (Bld) [Mass/Vol] 8.6 g/dL Low 13.0-17.0 [facility] Comment on above: Performed By: #### 5 0103 ####[facility] IMMATURE GRANS 1.8 % High 0.0-1.0 The [facility] Comment on above: Performed By: #### 5 3 ####[address] Lymphocytes (Bld) [#/Vol] 1.8 10*3/uL Normal 1.2-4.0 [facility] Comment on above: Performed By: #### 5 0103 ####[facility] Lymphocytes/100 WBC (Bld) 20.4 % Normal 20.0-45.0 [facility] Comment on above: Performed By: #### 5 0103 ####[facility] MCH (RBC) [Entitic mass] 28.6 pg Normal 27.0-33.0 [facility] Comment on above: Performed By: #### 5 3 ####[facility] [place] [address] MCHC (RBC) [Mass/Vol] 31.0 g/dL Low 32.0-35.0 [facility] Comment on above: Performed By: #### 5 3 ####[facility] MCV (RBC) [Entitic vol] 92.0 fL Normal 82.0-98.0 [facility] Comment on above: Performed By: #### 5 3 ####[facility] Monocytes (Bld) [#/Vol] 0.9 10*3/uL Normal 0.1-1.0 [facility] Comment on above: Performed By: #### 5 3 ####[facility] [place] [address] MONOS 9.9 % Normal 5.0-12.0 [facility] Comment on above: Performed By: #### 5 3 ####[facility] [place] [address] Neutrophils/100 WBC (Bld) 62.9 % Normal 40.0-72.0 [facility] Comment on above: Performed By: #### 5 0103 ####[facility] [facility].[address] Nucleated RBC/100 WBC (Bld) [Ratio] 0 % Normal 0-0 [facility] Comment on above: Performed By: #### 5 0103 ####[facility] [place] [address], [facility] PLAT CNT 387 10*3/uL Normal 150-400 The [facility] Comment on above: Performed By: #### 5 0103 ####[facility] RBC (Bld) [#/Vol] 3.01 10*6/uL Low 4.20-5.70 The [facility] Comment on above: Performed By: #### 5 0103 ####[facility] [place] [address], [facility] WBC (Bld) [#/Vol] 8.82 10*3/uL Normal 4.00-10.60 The [facility] Comment on above: Performed By: #### 5 0103 ####[facility] [facility].[address] CPKon 05-28-2021 CK [Catalytic activity/Vol] 19 U/L Low 30-223 [facility] Comment on above: Performed By: #### 2 5508, 27672, 59961, 25382 ####[facility] [facility].[address] MAGNESIUM BLOODon 05-28-2021 Magnesium [Mass/Vol] 1.9 mg/dL Normal 1.9-2.7 [facility] Comment on above: Order Comment: No: D o not add to previous draw Performed By: #### 2 5508, 13967, 47131, 18754 ####[facility] [place] [address], [facility] Operative Reporton 1 Operative Report Normal The [facility] PHOSPHORUS BLOODon 1 Phosphate [Mass/Vol] 4.5 mg/dL Normal 2.5-5.0 [facility] Comment on above: Performed By: #### 2 5508, 83739, 69399, 99356 ####[facility] [place] [address], [facility] POC GLUCOSE LABon 05-28-2021 Glucose [Mass/Vol] 120 mg/dL High 70-[address] [facility] Comment on above: Performed By: #### 8 5499 ####[facility] [place] [address], [place] Glucose [Mass/Vol] 130 mg/dL High 70-[address] [facility] Comment on above: Performed By: #### 8 9779 ####[facility] [place] [address], [place] Glucose [Mass/Vol] 117 mg/dL High 70-[address] [facility] Comment on above: Performed By: #### 8 3299 ####[facility] [place] [address], [place] Glucose [Mass/Vol] 175 mg/dL High 70-[address] [facility] Comment on above: Performed By: #### 8 2339 ####[facility] [place] [address], [place] Glucose [Mass/Vol] 107 mg/dL High 70-[address] [facility] Comment on above: Performed By: #### 8 7529 ####[facility] [place] [address], [place] BASIC METABOLIC PANELon 10-0 4-2021 Calcium [Mass/Vol] 8.4 mg/dL Low 8.6-10.3 [facility] Comment on above: Order Comment: No: D o not add to previous draw Performed By: #### 0 0071, 86353, 09759 ####[facility] [place] [address], [facility] Chloride [Moles/Vol] 99 mmol/L Normal 98-107 [facility] Comment on above: Order Comment: No: D o not add to previous draw Performed By: #### 0 0071, 43473, 17049 ####[facility] [place] [address], [facility] CO2 [Moles/Vol] 29 mmol/L Normal 21-31 [facility] Comment on above: Order Comment: No: D o not add to previous draw Performed By: #### 0 0071, , 20597 ####[facility] [place] [address], [facility] Creatinine [Mass/Vol] 1.78 mg/dL High 0.70-1.30 [facility] Comment on above: Order Comment: No: D o not add to previous draw Performed By: #### 0 0071, 75898, 65831 ####[facility] eGFR- 45 ml/min/1.73sq m Abnormal >60 The [facility] Comment on above: Order Comment: No: D o not add to previous draw Result Comment: Calc ulation may not be valid for patients over 70 years Performed By: #### 0 0071, 90448, 43705 ####[facility] [place] [address], [facility] eGFR- non- 37 ml/min/1.73sq m Abnormal >60 The [facility] Comment on above: Order Comment: No: D o not add to previous draw Result Comment: Calc ulation may not be valid for patients over 70 years Performed By: #### 0 0071, 21834, 78718 ####[facility] [place] [address], [place] Glucose [Mass/Vol] 96 mg/dL Normal 70-[address] [facility] Comment on above: Order Comment: No: D o not add to previous draw Performed By: #### 0 0071, , 40999 ####[facility] [place] [address], [place] Potassium [Moles/Vol] 4.7 mmol/L Normal 3.5-5.1 [facility] Comment on above: Order Comment: No: D o not add to previous draw Performed By: #### 0 0071, , 98670 ####[facility] [place] [address], [place] Sodium [Moles/Vol] 133 mmol/L Low 136-[address] [facility] Comment on above: Order Comment: No: D o not add to previous draw Performed By: #### 0 0071, , 85701 ####[facility] [place] [address], [place] Urea nitrogen [Mass/Vol] 33 mg/dL High 7-25 [facility] Comment on above: Order Comment: No: D o not add to previous draw Performed By: #### 0 0071, , 39407 ####[facility] [place] [address], [place] C REACTIVE PROTEINon -04-2 021 CRP [Mass/Vol] 47.2 mg/L High 0.0-7.0 The [facility] Comment on above: Order Comment: Yes: Add to Previous draw if able Performed By: #### 6 1405 ####[facility] [place] [address], [place] CBC COMPLETE BLOOD COUNTon 1 Erythrocyte distribution width (RBC) [Ratio] 15.5 % High 11.5-15.0 The [facility] Comment on above: Order Comment: No: D o not add to previous drawNurse draw Performed By: #### 5 9306, 95849 ####[facility] Hematocrit (Bld) [Volume fraction] 24.7 % Low 39.0-50.0 [facility] Comment on above: Order Comment: No: D o not add to previous drawNurse draw Performed By: #### 5 4836, 49954 ####[facility] Hemoglobin (Bld) [Mass/Vol] 7.7 g/dL Low 13.0-17.0 [facility] Comment on above: Order Comment: No: D o not add to previous drawNurse draw Performed By: #### 5 8326, 87929 ####[facility] MCH (RBC) [Entitic mass] 28.5 pg Normal 27.0-33.0 [facility] Comment on above: Order Comment: No: D o not add to previous drawNurse draw Performed By: #### 5 5326, 54429 ####[facility] MCHC (RBC) [Mass/Vol] 31.2 g/dL Low 32.0-35.0 [facility] Comment on above: Order Comment: No: D o not add to previous drawNurse draw Performed By: #### 5 3536, 56731 ####[facility] [place] [address] MCV (RBC) [Entitic vol] 91.5 fL Normal 82.0-98.0 [facility] Comment on above: Order Comment: No: D o not add to previous drawNurse draw Performed By: #### 5 6506, 53615 ####[facility] [facility].[address] Nucleated RBC/100 WBC (Bld) [Ratio] 0 % Normal 0-0 [facility] Comment on above: Order Comment: No: D o not add to previous drawNurse draw Performed By: #### 5 6506, 69378 ####[facility] [facility] [place] [address], [facility] PLAT CNT 332 10*3/uL Normal 150-400 The [facility] Comment on above: Order Comment: No: D o not add to previous drawNurse draw Performed By: #### 5 6506, 40895 ####[facility] [facility].[address] RBC (Bld) [#/Vol] 2.70 10*6/uL Low 4.20-5.70 The [facility] Comment on above: Order Comment: No: D o not add to previous drawNurse draw Performed By: #### 5 6506, 54054 ####[facility] [facility].[address] WBC (Bld) [#/Vol] 7.87 10*3/uL Normal 4.00-10.60 The [facility] Comment on above: Order Comment: No: D o not add to previous drawNurse draw Performed By: #### 5 6506, 12820 ####[facility] [facility] [place] [address], [facility] MAGNESIUM BLOODon 05-27-2021 Magnesium [Mass/Vol] 2.1 mg/dL Normal 1.9-2.7 [facility] Comment on above: Order Comment: No: D o not add to previous draw Performed By: #### 0 0071, 53186, 65052 ####[facility] [facility] [place] [address], [facility] POC GLUCOSE LABon 05-27-2021 Glucose [Mass/Vol] 134 mg/dL High 70-[address] [facility] Comment on above: Performed By: #### 8 5499 ####[facility] [facility] [place] [address], [place] Glucose [Mass/Vol] 109 mg/dL High 70-[address] [facility] Comment on above: Performed By: #### 8 5499 ####[facility] [facility] [place] [address], [place] Glucose [Mass/Vol] 151 mg/dL High 70-[address] [facility] Comment on above: Performed By: #### 8 5499 ####[facility] [facility] [place] [address], [place] Glucose [Mass/Vol] 114 mg/dL High 70-[address] [facility] Comment on above: Performed By: #### 8 5499 ####[facility] [facility] [place] [address], [facility] PORTABLE CHEST 1 VIEWon PORTABLE CHEST 1 VIEW Normal The [facility] Comment on above: Order Comment: evalu ate for Atelectasis RBC'S 1 UNITon 05-27-2021 CROSSMATCH INTERP 1 COMP Normal The [facility] Comment on above: Performed By: #### 8 6001 ####[facility] [facility] [place] [address], [facility] PRODUCT CODE 1 [id number] Normal The [facility] Comment on above: Performed By: #### 8 6001 ####[facility] [facility] [place] [address], [facility] PRODUCT STATUS 1 PT Normal The [facility] Comment on above: Result Comment: Resu lt changed by IF on 05/27/2021 11:45. The previous value was XM.Result changed by IF on 05/28/2021 00:30. The previous value was IS. Performed By: #### 8 6001 ####[facility] [facility].[address] UNIT ABO 1 O Normal [facility] Comment on above: Performed By: #### 8 6001 ####[facility] [facility].[address] UNIT ID 1 [id number] Normal [facility] Comment on above: Performed By: #### 8 6001 ####[facility] [facility].[address] UNIT RH 1 Negative Normal [facility] Comment on above: Performed By: #### 8 6001 ####[facility] [facility].[address] SEDIMENTATION RATEon 021 SED RATE 48 mm/hr High 0-10 [facility] Comment on above: Performed By: #### 5 6506, 64688 ####[facility] [facility].[address] VANCOMYCIN RANDOMon 05-27-20 21 VANCOMYCIN RAND 12.2 mcg/mL Normal [facility] Comment on above: Performed By: #### 0 0071, 17058, 46112 ####[facility] [facility].[address] BASIC METABOLIC PANELon 10-0 Calcium [Mass/Vol] 8.2 mg/dL Low 8.6-10.3 [facility] Comment on above: Order Comment: No: D o not add to previous draw Performed By: #### 1 0070, 01207 ####[facility] Chloride [Moles/Vol] 98 mmol/L Normal 98-107 [facility] Comment on above: Order Comment: No: D o not add to previous draw Performed By: #### 1 69, 03053 ####[facility]3000 [facility] [place] [address], [facility] CO2 [Moles/Vol] 30 mmol/L Normal 21-31 [facility] Comment on above: Order Comment: No: D o not add to previous draw Performed By: #### 1 69, 99712 ####[facility] [place] [address], [facility] Creatinine [Mass/Vol] 1.78 mg/dL High 0.70-1.30 [facility] Comment on above: Order Comment: No: D o not add to previous draw Performed By: #### 1 69, 57841 ####[facility]3000 [facility] [place] [address], [facility] eGFR- 45 ml/min/1.73sq m Abnormal >60 [facility] Comment on above: Order Comment: No: D o not add to previous draw Result Comment: Calc ulation may not be valid for patients over 70 years Performed By: #### 1 69, 24359 ####[facility] [facility] [place] [address], [facility] eGFR- non- 37 ml/min/1.73sq m Abnormal >60 [facility] Comment on above: Order Comment: No: D o not add to previous draw Result Comment: Calc ulation may not be valid for patients over 70 years Performed By: #### 1 69, 92489 ####[facility] [place] [address], [facility] Glucose [Mass/Vol] 97 mg/dL Normal 70-100 [facility] Comment on above: Order Comment: No: D o not add to previous draw Performed By: #### 1 69, 28179 ####[facility] Potassium [Moles/Vol] 4.8 mmol/L Normal 3.5-5.1 [facility] Comment on above: Order Comment: No: D o not add to previous draw Performed By: #### 1 69, 44360 ####[facility] Sodium [Moles/Vol] 131 mmol/L Low 136-[address] [facility] Comment on above: Order Comment: No: D o not add to previous draw Performed By: #### 1 69, 42387 ####[facility] Urea nitrogen [Mass/Vol] 35 mg/dL High 7-25 [facility] Comment on above: Order Comment: No: D o not add to previous draw Performed By: #### 1 69, 09179 ####[facility] CBC COMPLETE BLOOD COUNTon - Erythrocyte distribution width (RBC) [Ratio] 15.4 % High 11.5-15.0 [facility] Comment on above: Order Comment: No: D o not add to previous drawNurse draw Performed By: #### 5 0608 ####[place] [id number] [address] Hematocrit (Bld) [Volume fraction] 24.3 % Low 39.0-50.0 [facility] Comment on above: Order Comment: No: D o not add to previous drawNurse draw Performed By: #### 5 0608 ####[address] Hemoglobin (Bld) [Mass/Vol] 7.9 g/dL Low 13.0-17.0 [facility] Comment on above: Order Comment: No: D o not add to previous drawNurse draw Performed By: #### 5 0608 ####[facility] MCH (RBC) [Entitic mass] 28.6 pg Normal 27.0-33.0 [facility] Comment on above: Order Comment: No: D o not add to previous drawNurse draw Performed By: #### 5 0608 ####[facility] [place] [address] MCHC (RBC) [Mass/Vol] 32.5 g/dL Normal 32.0-35.0 [facility] Comment on above: Order Comment: No: D o not add to previous drawNurse draw Performed By: #### 5 0608 ####[address] MCV (RBC) [Entitic vol] 88.0 fL Normal 82.0-98.0 [facility] Comment on above: Order Comment: No: D o not add to previous drawNurse draw Performed By: #### 5 0608 ####[address] Nucleated RBC/100 WBC (Bld) [Ratio] 0 % Normal 0-0 [facility] Comment on above: Order Comment: No: D o not add to previous drawNurse draw Performed By: #### 5 0608 ####[address] PLAT CNT 320 10*3/uL Normal 150-400 [facility] Comment on above: Order Comment: No: D o not add to previous drawNurse draw Performed By: #### 5 0608 ####[address] RBC (Bld) [#/Vol] 2.76 10*6/uL Low 4.20-5.70 [facility] Comment on above: Order Comment: No: D o not add to previous drawNurse draw Performed By: #### 5 0608 ####[facility] [place] [address], [facility] WBC (Bld) [#/Vol] 7.52 10*3/uL Normal 4.00-10.60 [facility] Comment on above: Order Comment: No: D o not add to previous drawNurse draw Performed By: #### 5 0608 ####[facility] [place] [address], [facility] MAGNESIUM BLOODon 05-26-2021 Magnesium [Mass/Vol] 2.1 mg/dL Normal 1.9-2.7 [facility] Comment on above: Order Comment: No: D o not add to previous draw Performed By: #### 1 0070, 14968 ####[facility]3000 [facility].[address] POC GLUCOSE LABon 05-26-2021 Glucose [Mass/Vol] 138 mg/dL High 70-[address] [facility] Comment on above: Performed By: #### 8 5499 ####[facility]3000 [facility] [place] [address], [facility] Glucose [Mass/Vol] 119 mg/dL High 70-[address] [facility] Comment on above: Performed By: #### 8 5499 ####[facility]3000 [facility] [place] [address], [facility] Glucose [Mass/Vol] 118 mg/dL High 70-[address] [facility] Comment on above: Performed By: #### 8 5499 ####[facility] [place] [address], [facility] PORTABLE CHEST 1 VIEWon PORTABLE CHEST 1 VIEW Normal [facility] Comment on above: Order Comment: evalu ate for Atelectasis BASIC METABOLIC PANELon Calcium [Mass/Vol] 8.1 mg/dL Low 8.6-10.3 [facility] Comment on above: Order Comment: No: D o not add to previous draw Performed By: #### 3 0953, 53702, 58565 ####[facility] [place] [address], [facility] Chloride [Moles/Vol] 95 mmol/L Low 98-107 [facility] Comment on above: Order Comment: No: D o not add to previous draw Performed By: #### 3 0953, 88908, 76449 ####[facility] [place] [address], [facility] CO2 [Moles/Vol] 27 mmol/L Normal 21-31 [facility] Comment on above: Order Comment: No: D o not add to previous draw Performed By: #### 3 0953, 54228, 89973 ####[facility]3000 [facility] [place] [address], [facility] Creatinine [Mass/Vol] 2.13 mg/dL High 0.70-1.30 [facility] Comment on above: Order Comment: No: D o not add to previous draw Performed By: #### 3 0953, 98313, 24359 ####[facility] [facility].[address] eGFR- 37 ml/min/1.73sq m Abnormal >60 [facility] Comment on above: Order Comment: No: D o not add to previous draw Result Comment: Calc ulation may not be valid for patients over 70 years Performed By: #### 3 0953, 81311, 04364 ####[facility] [facility] [place] [address], [facility] eGFR- non- 30 ml/min/1.73sq m Abnormal >60 [facility] Comment on above: Order Comment: No: D o not add to previous draw Result Comment: Calc ulation may not be valid for patients over 70 years Performed By: #### 3 0953, 14671, 56526 ####[facility] [place] [address], [facility] Glucose [Mass/Vol] 122 mg/dL High 70-[address] [facility] Comment on above: Order Comment: No: D o not add to previous draw Performed By: #### 3 0953, 50393, 75738 ####[facility] [id number], [facility] Potassium [Moles/Vol] 4.8 mmol/L Normal 3.5-5.1 [facility] Comment on above: Order Comment: No: D o not add to previous draw Performed By: #### 3 0953, 35954, 22153 ####[facility] [place] [address], [facility] Sodium [Moles/Vol] 128 mmol/L Low 136-[address] [facility] Comment on above: Order Comment: No: D o not add to previous draw Performed By: #### 3 0953, 81553, 25032 ####[place] [id number] [facility] [place] [address], [facility] Urea nitrogen [Mass/Vol] 35 mg/dL High 7-25 [facility] Comment on above: Order Comment: No: D o not add to previous draw Performed By: #### 3 0953, 97886, 77549 ####[facility]3000 [facility] [place] [address], [facility] CBC COMPLETE BLOOD COUNTon - Erythrocyte distribution width (RBC) [Ratio] 15.8 % High 11.5-15.0 [facility] Comment on above: Order Comment: No: D o not add to previous draw Performed By: #### 5 0608 ####[facility] [id number], [facility] Hematocrit (Bld) [Volume fraction] 22.3 % Low 39.0-50.0 [facility] Comment on above: Order Comment: No: D o not add to previous draw Performed By: #### 5 0608 ####[facility] [facility].[address] Hemoglobin (Bld) [Mass/Vol] 7.3 g/dL Low 13.0-17.0 [facility] Comment on above: Order Comment: No: D o not add to previous draw Performed By: #### 5 0608 ####[facility] MCH (RBC) [Entitic mass] 28.7 pg Normal 27.0-33.0 [facility] Comment on above: Order Comment: No: D o not add to previous draw Performed By: #### 5 0608 ####[facility] MCHC (RBC) [Mass/Vol] 32.7 g/dL Normal 32.0-35.0 [facility] Comment on above: Order Comment: No: D o not add to previous draw Performed By: #### 5 0608 ####[facility] [facility].[address] MCV (RBC) [Entitic vol] 87.8 fL Normal 82.0-98.0 [facility] Comment on above: Order Comment: No: D o not add to previous draw Performed By: #### 5 0608 ####[facility] Nucleated RBC/100 WBC (Bld) [Ratio] 0 % Normal 0-0 [facility] Comment on above: Order Comment: No: D o not add to previous draw Performed By: #### 5 0608 ####[facility] [place] [address], [facility] PLAT CNT 292 10*3/uL Normal 150-400 [facility] Comment on above: Order Comment: No: D o not add to previous draw Performed By: #### 5 0608 ####[facility] [place] [address], [facility] RBC (Bld) [#/Vol] 2.54 10*6/uL Low 4.20-5.70 [facility] Comment on above: Order Comment: No: D o not add to previous draw Performed By: #### 5 0608 ####[facility] [place] [address], [facility] WBC (Bld) [#/Vol] 8.90 10*3/uL Normal 4.00-10.60 [facility] Comment on above: Order Comment: No: D o not add to previous draw Performed By: #### 5 0608 ####[facility]3000 [facility].[address] HEMATOCRITon 05-25-2021 Hematocrit (Bld) [Volume fraction] 25.1 % Low 39.0-50.0 [facility] Comment on above: Order Comment: No: D o not add to previous draw Performed By: #### 9 2088, 40103 ####[facility] [place] [address], [facility] HEMOGLOBINon 05-25-2021 Hemoglobin (Bld) [Mass/Vol] 8.4 g/dL Low 13.0-17.0 [facility] Comment on above: Order Comment: No: D o not add to previous draw Performed By: #### 9 2088, 31080 ####[facility] [facility] [place] [address], [facility] MAGNESIUM BLOODon 05-25-2021 Magnesium [Mass/Vol] 2.0 mg/dL Normal 1.9-2.7 [facility] Comment on above: Order Comment: No: D o not add to previous draw Performed By: #### 3 0953, 02037, 36166 ####[facility] [place] [address], [facility] POC GLUCOSE LABon 05-25-2021 Glucose [Mass/Vol] 136 mg/dL High 70-[address] [facility] Comment on above: Performed By: #### 8 5499 ####[facility] [place] [address], [place] Glucose [Mass/Vol] 115 mg/dL High 70-[address] [facility] Comment on above: Performed By: #### 8 5499 ####[facility] [facility] [place] [place] [address], [place] Glucose [Mass/Vol] 72 mg/dL Normal 70-[address] [facility] Comment on above: Performed By: #### 8 5499 ####[facility] [place] [place] [address], [facility] Glucose [Mass/Vol] 154 mg/dL High 70-[address] [facility] Comment on above: Performed By: #### 8 5499 ####[facility] [facility] [place] [place] [address], [facility] PORTABLE CHEST 1 VIEWon PORTABLE CHEST 1 VIEW Normal [facility] Comment on above: Order Comment: Evalu ate for Effusion RBC'S 2 UNITSon 05-25-2021 CROSSMATCH INTERP 1 COMP Normal [facility] Comment on above: Performed By: #### 8 6002 ####[facility] [facility] [place] [place] [address], [facility] CROSSMATCH INTERP 2 COMP Normal [facility] Comment on above: Performed By: #### 8 6002 ####[facility] [facility] [place] [place] [address], [facility] PRODUCT CODE 1 [id number] Normal [facility] Comment on above: Performed By: #### 8 6002 ####[facility] [place] [address], [facility] PRODUCT CODE 2 [id number] Normal [facility] Comment on above: Performed By: #### 8 6002 ####[facility] [place] [address], [facility] PRODUCT STATUS 1 PT Normal [facility] Comment on above: Result Comment: Resu lt changed by IF on 05/25/2021 13:50. The previous value was XM.Result changed by IF on 05/26/2021 00:30. The previous value was IS. Performed By: #### 8 6002 ####[facility] [facility] [place] [place] [address], [facility] PRODUCT STATUS 2 PT Normal [facility] Comment on above: Result Comment: Resu lt changed by IF on 05/25/2021 09:50. The previous value was XM.Result changed by IF on 05/26/2021 00:30. The previous value was IS. Performed By: #### 8 6002 ####[facility] [facility] [place] [place] [address], [facility] UNIT ABO 1 O Normal [facility] Comment on above: Performed By: #### 8 6002 ####[facility] [facility] [place] [address], [facility] UNIT ABO 2 O Normal [facility] Comment on above: Performed By: #### 8 6002 ####[facility] [facility] [place] [address], [facility] UNIT ID 1 [id number] Normal [facility] Comment on above: Performed By: #### 8 6002 ####[facility] [facility] [place] [address], [facility] UNIT ID 2 [id number] Normal [facility] Comment on above: Performed By: #### 8 6002 ####[facility] [place] [address], [facility] UNIT RH 1 Positive Normal [facility] Comment on above: Performed By: #### 8 6002 ####[facility] [place] [address], [facility] UNIT RH 2 Positive Normal [facility] Comment on above: Performed By: #### 8 6002 ####[facility] [place] [address], [facility] VANCOMYCIN TIMEDon VANCOMYCIN TIMED 24.3 mcg/mL Normal [facility] Comment on above: Performed By: #### 3 0953, 98352, 79576 ####[facility] [place] [address], [facility] BASIC METABOLIC PANELon 10-0 Calcium [Mass/Vol] 7.8 mg/dL Low 8.6-10.3 [facility]: Order Comment: No: D o not add to previous draw Performed By: #### 0 0071, 63529, 22078, 76575 ####[facility] [place] [address], [facility] Chloride [Moles/Vol] 97 mmol/L Low 98-107 [facility] Comment on above: Order Comment: No: D o not add to previous draw Performed By: #### 0 0071, 42989, 31382, 77700 ####[facility] [place] [address], [facility] CO2 [Moles/Vol] 30 mmol/L Normal 21-31 [facility] Comment on above: Order Comment: No: D o not add to previous draw Performed By: #### 0 0071, 44809, 10989, 00488 ####[facility] [place] [address], [facility] Creatinine [Mass/Vol] 1.70 mg/dL High 0.70-1.30 [facility] Comment on above: Order Comment: No: D o not add to previous draw Performed By: #### 0 0071, 81303, 49123, 39393 ####[facility] [place] [address], [facility] eGFR- 48 ml/min/1.73sq m Abnormal >60 [facility] Comment on above: Order Comment: No: D o not add to previous draw Result Comment: Calc ulation may not be valid for patients over 70 years Performed By: #### 0 0071, 60357, 11169, 52189 ####[facility] [place] [address], [facility] eGFR- non- 39 ml/min/1.73sq m Abnormal >60 [facility] Comment on above: Order Comment: No: D o not add to previous draw Result Comment: Calc ulation may not be valid for patients over 70 years Performed By: #### 0 0071, 16422, 74542, 96807 ####[facility] [place] [address], [facility] Glucose [Mass/Vol] 132 mg/dL High 70-100 [facility] Comment on above: Order Comment: No: D o not add to previous draw Performed By: #### 0 0071, 64582, 03099, 98383 ####[facility] [place] [address], [place] Potassium [Moles/Vol] 5.2 mmol/L High 3.5-5.1 [facility] Comment on above: Order Comment: No: D o not add to previous draw Performed By: #### 0 0071, 87066, 99513, 65933 ####[facility] [place] [address], [place] Sodium [Moles/Vol] 131 mmol/L Low 136-[address] [facility] Comment on above: Order Comment: No: D o not add to previous draw Performed By: #### 0 0071, 44702, 48921, 57903 ####[facility] Urea nitrogen [Mass/Vol] 27 mg/dL High 7-25 [facility] Comment on above: Order Comment: No: D o not add to previous draw Performed By: #### 0 0071, 51772, 24461, 50715 ####[facility]3000 [facility].[address] CBC COMPLETE BLOOD COUNTon Erythrocyte distribution width (RBC) [Ratio] 14.5 % Normal 11.5-15.0 [facility] Comment on above: Order Comment: No: D o not add to previous draw Performed By: #### 5 0608 ####[facility]3000 [facility].[address] Hematocrit (Bld) [Volume fraction] 23.1 % Low 39.0-50.0 [facility] Comment on above: Order Comment: No: D o not add to previous draw Performed By: #### 5 0608 ####[place] [facility] [facility] Hemoglobin (Bld) [Mass/Vol] 7.4 g/dL Low 13.0-17.0 The [facility] Comment on above: Order Comment: No: D o not add to previous draw Performed By: #### 5 0608 ####[facility] [place] [address], [facility] MCH (RBC) [Entitic mass] 28.9 pg Normal 27.0-33.0 [facility] Comment on above: Order Comment: No: D o not add to previous draw Performed By: #### 5 0608 ####[facility] MCHC (RBC) [Mass/Vol] 32.0 g/dL Normal 32.0-35.0 [facility] Comment on above: Order Comment: No: D o not add to previous draw Performed By: #### 5 0608 ####[facility] [facility] [place] [address], [facility] MCV (RBC) [Entitic vol] 90.2 fL Normal 82.0-98.0 The [facility] Comment on above: Order Comment: No: D o not add to previous draw Performed By: #### 5 0608 ####[address] Nucleated RBC/100 WBC (Bld) [Ratio] 0 % Normal 0-0 [facility] Comment on above: Order Comment: No: D o not add to previous draw Performed By: #### 5 0608 ####[facility] [place] [address], [facility] PLAT CNT 312 10*3/uL Normal 150-400 The [facility] Comment on above: Order Comment: No: D o not add to previous draw Performed By: #### 5 0608 ####[address] [place] [address], [facility] RBC (Bld) [#/Vol] 2.56 10*6/uL Low 4.20-5.70 The [facility] Comment on above: Order Comment: No: D o not add to previous draw Performed By: #### 5 0608 ####[facility] [facility] [place] [address], [facility] WBC (Bld) [#/Vol] 10.23 10*3/uL Normal 4.00-10.60 [facility] Comment on above: Order Comment: No: D o not add to previous draw Performed By: #### 5 0608 ####[facility] [place] [address], [place] MAGNESIUM BLOODon 05-24-2021 Magnesium [Mass/Vol] 1.8 mg/dL Low 1.9-2.7 [facility] Comment on above: Order Comment: No: D o not add to previous draw Performed By: #### 0 0071, 13752, 34217, 16260 ####[facility] [place] [address], [place] PHOSPHORUS BLOODon Phosphate [Mass/Vol] 5.0 mg/dL Normal 2.5-5.0 [facility] Comment on above: Order Comment: No: D o not add to previous draw Performed By: #### 0 0071, 79231, 33580, 13124 ####[facility] [place] [address], [place] POC GLUCOSE LABon 05-24-2021 Glucose [Mass/Vol] 156 mg/dL High 70-100 [facility] Comment on above: Performed By: #### 8 5499 ####[facility] [place] [address], [place] Glucose [Mass/Vol] 129 mg/dL High 70-100 [facility] Comment on above: Performed By: #### 8 5499 ####[facility] [place] [address], [place] Glucose [Mass/Vol] 188 mg/dL High 70-100 [facility] Comment on above: Performed By: #### 8 5499 ####[facility] [place] [address], [place] Glucose [Mass/Vol] 141 mg/dL High 70-100 [facility] Comment on above: Performed By: #### 8 5499 ####[facility] [place] [address], [place] RBC'S 1 UNITon 05-24-2021 CROSSMATCH INTERP 1 COMP Normal [facility] Comment on above: Performed By: #### 8 6001 ####[facility] [facility].[address] PRODUCT CODE 1 E0332 Normal The [facility] Comment on above: Performed By: #### 8 6001 ####[facility] [facility].[address] PRODUCT STATUS 1 PT Normal The [facility] Comment on above: Result Comment: Resu lt changed by IF on 05/24/2021 11:33. The previous value was XM.Result changed by IF on 05/25/2021 00:30. The previous value was IS. Performed By: #### 8 6001 ####[facility] [facility].[address] UNIT ABO 1 O Normal [facility] Comment on above: Performed By: #### 8 6001 ####[facility] [facility].[address] UNIT ID 1 [id number] Normal [facility] Comment on above: Performed By: #### 8 6001 ####[facility] [facility].[address] UNIT RH 1 Positive Normal [facility] Comment on above: Performed By: #### 8 6001 ####[facility] [facility].[address] TYPE AND SCREENon 05-24-2021 ABO INTERPRETATION O Normal [facility] Comment on above: Performed By: #### 6 2586 ####[facility] [facility] [place] [address], [facility] RH INTERPRETATION Positive Normal [facility] Comment on above: Performed By: #### 6 2586 ####[facility] [place] [address], [facility] VANCOMYCIN TIMEDon VANCOMYCIN TIMED 42.1 mcg/mL Normal [facility] Comment on above: Performed By: #### 0 0071, 51054, 11779, 97525 ####[facility] BASIC METABOLIC PANELon 09-3 Calcium [Mass/Vol] 8.7 mg/dL Normal 8.6-10.[address] [facility] Comment on above: Order Comment: No: D o not add to previous draw Performed By: #### 4 1000, 74557, 61610 ####[facility] [facility] [place] [address], [facility] Chloride [Moles/Vol] 97 mmol/L Low 98-107 [facility] Comment on above: Order Comment: No: D o not add to previous draw Performed By: #### 4 1000, 12699, 00079 ####[facility] [facility] [place] [address], [facility] CO2 [Moles/Vol] 32 mmol/L High 21-31 [facility] Comment on above: Order Comment: No: D o not add to previous draw Performed By: #### 4 1000, 26955, 95479 ####[facility] [place] [address], [facility] Creatinine [Mass/Vol] 1.31 mg/dL High 0.70-1.30 [facility] Comment on above: Order Comment: No: D o not add to previous draw Performed By: #### 4 1000, 88714, 27903 ####[facility] [place] [address], [facility] eGFR- non- 53 ml/min/1.73sq m Abnormal >60 The [facility] Comment on above: Order Comment: No: D o not add to previous draw Result Comment: Calc ulation may not be valid for patients over 70 years Performed By: #### 4 999, 98209, 90345 ####[facility] [facility] [place] [address], [facility] GFR/1.73 sq M.predicted among blacks MDRD (S/P/Bld) [Vol rate/Area] mL/min/{1.73_m2} Normal >60 The [facility] Comment on above: Order Comment: No: D o not add to previous draw Result Comment: Calc ulation may not be valid for patients over 70 years Performed By: #### 4 1000, 45722, 09929 ####[facility] [facility] [place] [address], [facility] Glucose [Mass/Vol] 105 mg/dL High 70-100 [facility] Comment on above: Order Comment: No: D o not add to previous draw Performed By: #### 4 999, 76236, 95578 ####[facility] [place] [address], [facility] Potassium [Moles/Vol] 4.0 mmol/L Normal 3.5-5.1 [facility] Comment on above: Order Comment: No: D o not add to previous draw Performed By: #### 4 999, 33085, 10184 ####[facility] [place] [address], [facility] Sodium [Moles/Vol] 133 mmol/L Low 136-145 [facility] Comment on above: Order Comment: No: D o not add to previous draw Performed By: #### 4 999, 93670, 13655 ####[facility] [place] [address], [place] Urea nitrogen [Mass/Vol] 24 mg/dL Normal 7-25 [facility] Comment on above: Order Comment: No: D o not add to previous draw Performed By: #### 4 999, 54386, 60973 ####[facility] CBC COMPLETE BLOOD COUNTon 0 05-23-2021 Erythrocyte distribution width (RBC) [Ratio] 14.3 % Normal 11.5-15.0 [facility] Comment on above: Order Comment: No: D o not add to previous draw Performed By: #### 5 0608 ####[facility] Hematocrit (Bld) [Volume fraction] 29.4 % Low 39.0-50.0 [facility] Comment on above: Order Comment: No: D o not add to previous draw Performed By: #### 5 0608 ####[facility] Hemoglobin (Bld) [Mass/Vol] 9.4 g/dL Low 13.0-17.0 [facility] Comment on above: Order Comment: No: D o not add to previous draw Performed By: #### 5 0608 ####[place] [id number] [address] MCH (RBC) [Entitic mass] 28.5 pg Normal 27.0-33.0 [facility] Comment on above: Order Comment: No: D o not add to previous draw Performed By: #### 5 0608 ####[facility] MCHC (RBC) [Mass/Vol] 32.0 g/dL Normal 32.0-35.0 [facility] Comment on above: Order Comment: No: D o not add to previous draw Performed By: #### 5 0608 ####[facility] [place] [address] MCV (RBC) [Entitic vol] 89.1 fL Normal 82.0-98.0 [facility] Comment on above: Order Comment: No: D o not add to previous draw Performed By: #### 5 0608 ####[facility] [facility].[address] Nucleated RBC/100 WBC (Bld) [Ratio] 0 % Normal 0-0 [facility] Comment on above: Order Comment: No: D o not add to previous draw Performed By: #### 5 0608 ####[facility] [facility] [place] [address], [facility] PLAT CNT 342 10*3/uL Normal 150-400 The [facility] Comment on above: Order Comment: No: D o not add to previous draw Performed By: #### 5 0608 ####[facility] RBC (Bld) [#/Vol] 3.30 10*6/uL Low 4.20-5.70 The [facility] Comment on above: Order Comment: No: D o not add to previous draw Performed By: #### 5 0608 ####[facility] [facility] [place] [address], [facility] WBC (Bld) [#/Vol] 7.22 10*3/uL Normal 4.00-10.60 [facility] Comment on above: Order Comment: No: D o not add to previous draw Performed By: #### 5 0608 ####[facility] [facility] [place] [address], [facility] MAGNESIUM BLOODon 05-23-2021 Magnesium [Mass/Vol] 1.9 mg/dL Normal 1.9-2.7 [facility] Comment on above: Order Comment: No: D o not add to previous draw Performed By: #### 4 1000, 32893, 85540 ####[facility] [facility] [place] [address], [facility] PHOSPHORUS BLOODon Phosphate [Mass/Vol] 3.4 mg/dL Normal 2.5-5.0 [facility] Comment on above: Order Comment: No: D o not add to previous draw Performed By: #### 4 1000, 14586, 70723 ####[facility] [place] [address], [place] POC GLUCOSE LABon 05-23-2021 Glucose [Mass/Vol] 141 mg/dL High 70-[address] [facility] Comment on above: Performed By: #### 8 5499 ####[facility] [place] [address], [place] Glucose [Mass/Vol] 147 mg/dL High 70-[address] [facility] Comment on above: Performed By: #### 8 5499 ####[facility] [place] [address], [place] Glucose [Mass/Vol] 138 mg/dL High 70-[address] [facility] Comment on above: Performed By: #### 8 5499 ####[facility] [place] [address], [place] Glucose [Mass/Vol] 112 mg/dL High 70-[address] [facility] Comment on above: Performed By: #### 8 5499 ####[facility] [place] [address], [place] Glucose [Mass/Vol] 121 mg/dL High 70-[address] [facility] Comment on above: Performed By: #### 8 5499 ####[facility] [place] [address], [place] POC SARS COV2 ANTIGEN NEGATI VEon 05-23-2021 POC SARS COV2 ANTIGEN NEG Negative Normal NEGATIVE [facility] Comment on above: Result Comment: [...] of clinicalsigns and symptoms consistent with COVID-19.The DeliveredW COVID-19 Ag Card is a lateral flow immunoassay intended forthe qualitative detection of nucleocapsid protein antigen [id number] in direct nasal swabs from individuals within [...] Certificate ofAccreditation. Performed By: #### 3 1977 ####[facility] PORTABLE CHEST 1 VIEWon 04-26 PORTABLE CHEST 1 VIEW Normal [facility] Comment on above: Order Comment: evalu ate for Atelectasis VANCOMYCIN RANDOMon 05-23-20 21 VANCOMYCIN RAND 19.6 mcg/mL Normal [facility] Comment on above: Order Comment: No: D o not add to previous draw Performed By: #### 9 4980 ####[place] [id number] [address] BASIC METABOLIC PANELon 04-25 Calcium [Mass/Vol] 8.6 mg/dL Normal 8.6-10.[address] [facility] Comment on above: Order Comment: No: D o not add to previous draw Performed By: #### 0 0071, 29166, 02782 ####[facility] Chloride [Moles/Vol] 98 mmol/L Normal 98-107 [facility] Comment on above: Order Comment: No: D o not add to previous draw Performed By: #### 0 0071, 66470, 95141 ####[facility] [place] [address], [facility] CO2 [Moles/Vol] 33 mmol/L High 21-31 [facility] Comment on above: Order Comment: No: D o not add to previous draw Performed By: #### 0 0071, 90965, 17701 ####[facility] [place] [address], [facility] Creatinine [Mass/Vol] 1.21 mg/dL Normal 0.70-1.30 [facility] Comment on above: Order Comment: No: D o not add to previous draw Performed By: #### 0 0071, 26010, 98638 ####[facility] [place] [place] [address], [facility] eGFR- non- 58 ml/min/1.73sq m Abnormal >60 The [facility] Comment on above: Order Comment: No: D o not add to previous draw Result Comment: Calc ulation may not be valid for patients over 70 years Performed By: #### 0 0071, 20130, 65388 ####[facility] [place] [place] [address], [facility] GFR/1.73 sq M.predicted among blacks MDRD (S/P/Bld) [Vol rate/Area] mL/min/{1.73_m2} Normal >60 [facility] Comment on above: Order Comment: No: D o not add to previous draw Result Comment: Calc ulation may not be valid for patients over 70 years Performed By: #### 0 0071, 57776, 27642 ####[facility] [place] [address], [place] Glucose [Mass/Vol] 115 mg/dL High 70-100 [facility] Comment on above: Order Comment: No: D o not add to previous draw Performed By: #### 0 0071, 51688, 83423 ####[facility] [place] [address], [facility] Potassium [Moles/Vol] 3.9 mmol/L Normal 3.5-5.1 [facility] Comment on above: Order Comment: No: D o not add to previous draw Performed By: #### 0 0071, 84035, 43184 ####[facility] [id number], [facility] Sodium [Moles/Vol] 135 mmol/L Low 136-[address] [facility] Comment on above: Order Comment: No: D o not add to previous draw Performed By: #### 0 0071, 97242, 51421 ####[facility] [place] [address], [facility] Urea nitrogen [Mass/Vol] 22 mg/dL Normal 7-25 [facility] Comment on above: Order Comment: No: D o not add to previous draw Performed By: #### 0 0071, 41830, 79324 ####[facility] [facility] [place] [address], [facility] CBC COMPLETE BLOOD COUNTon 0 05-22-2021 Erythrocyte distribution width (RBC) [Ratio] 14.3 % Normal 11.5-15.0 [facility] Comment on above: Order Comment: No: D o not add to previous draw Performed By: #### 5 0608 ####[facility] [id number], [facility] Hematocrit (Bld) [Volume fraction] 24.7 % Low 39.0-50.0 [facility] Comment on above: Order Comment: No: D o not add to previous draw Performed By: #### 5 0608 ####[facility] [id number], [facility] Hemoglobin (Bld) [Mass/Vol] 7.6 g/dL Low 13.0-17.0 [facility] Comment on above: Order Comment: No: D o not add to previous draw Performed By: #### 5 0608 ####[address] MCH (RBC) [Entitic mass] 28.3 pg Normal 27.0-33.0 [facility] Comment on above: Order Comment: No: D o not add to previous draw Performed By: #### 5 0608 ####[facility] MCHC (RBC) [Mass/Vol] 30.8 g/dL Low 32.0-35.0 [facility] Comment on above: Order Comment: No: D o not add to previous draw Performed By: #### 5 0608 ####[address] MCV (RBC) [Entitic vol] 91.8 fL Normal 82.0-98.0 [facility] Comment on above: Order Comment: No: D o not add to previous draw Performed By: #### 5 0608 ####[address] Nucleated RBC/100 WBC (Bld) [Ratio] 0 % Normal 0-0 [facility] Comment on above: Order Comment: No: D o not add to previous draw Performed By: #### 5 0608 ####[address] PLAT CNT 313 10*3/uL Normal 150-400 [facility] Comment on above: Order Comment: No: D o not add to previous draw Performed By: #### 5 0608 ####[address] RBC (Bld) [#/Vol] 2.69 10*6/uL Low 4.20-5.70 [facility] Comment on above: Order Comment: No: D o not add to previous draw Performed By: #### 5 0608 ####[facility] [place] [address], [facility] WBC (Bld) [#/Vol] 7.75 10*3/uL Normal 4.00-10.60 [facility] Comment on above: Order Comment: No: D o not add to previous draw Performed By: #### 5 0608 ####[facility] [facility] [place] [address], [facility] MAGNESIUM BLOODon 05-22-2021 Magnesium [Mass/Vol] 1.9 mg/dL Normal 1.9-2.7 [facility] Comment on above: Order Comment: No: D o not add to previous draw Performed By: #### 0 0071, 79211, 27106 ####[facility] [facility].[address] Operative Reporton Operative Report Normal [facility] POC GLUCOSE LABon 05-22-2021 Glucose [Mass/Vol] 126 mg/dL High 70-[address] [facility] Comment on above: Performed By: #### 8 5499 ####[facility] [facility] [place] [address], [facility] Glucose [Mass/Vol] 136 mg/dL High 70-[address] [facility] Comment on above: Performed By: #### 8 5499 ####[facility] [facility] [place] [address], [facility] Glucose [Mass/Vol] 156 mg/dL High 70-[address] [facility] Comment on above: Performed By: #### 8 5499 ####[facility] [place] [address], [facility] PORTABLE CHEST 1 VIEWon 04-25 PORTABLE CHEST 1 VIEW Normal [facility] Comment on above: Order Comment: Evalu ate for Atelectasis, common RBC'S 1 UNITon 05-22-2021 CROSSMATCH INTERP 1 COMP Normal [facility] Comment on above: Performed By: #### 8 6001 ####[facility] PRODUCT CODE 1 E0336 Normal [facility] Comment on above: Performed By: #### 8 6001 ####[facility] PRODUCT STATUS 1 PT Normal [facility] Comment on above: Result Comment: Resu lt changed by IF on 05/22/2021 13:33. The previous value was XM.Result changed by IF on 05/23/2021 00:30. The previous value was IS. Performed By: #### 8 6001 ####[facility] UNIT ABO 1 O Normal [facility] Comment on above: Performed By: #### 8 6001 ####[facility] UNIT ID 1 [id number] Normal [facility] Comment on above: Performed By: #### 8 6001 ####[facility] UNIT RH 1 Positive Normal [facility] Comment on above: Performed By: #### 8 6001 ####[facility] [place] [address], [facility] RBC'S 3 UNITSon 05-22-2021 CROSSMATCH INTERP 1 COMP Normal [facility] Comment on above: Order Comment: Hemog lobin < 9 gm/dl with known cardiac or cerebrovascular disease Performed By: #### 8 6003 ####[facility] [place] [address], [facility] CROSSMATCH INTERP 2 COMP Normal [facility] Comment on above: Order Comment: Hemog lobin < 9 gm/dl with known cardiac or cerebrovascular disease Performed By: #### 8 6003 ####[facility] [place] [address], [facility] CROSSMATCH INTERP 3 COMP Normal [facility] Comment on above: Order Comment: Hemog lobin < 9 gm/dl with known cardiac or cerebrovascular disease Performed By: #### 8 6003 ####[facility] [place] [address], [facility] PRODUCT CODE 1 E0336 Normal [facility] Comment on above: Order Comment: Hemog lobin < 9 gm/dl with known cardiac or cerebrovascular disease Performed By: #### 8 6003 ####[facility] [place] [address], [facility] PRODUCT CODE 2 E0685 Normal [facility] Comment on above: Order Comment: Hemog lobin < 9 gm/dl with known cardiac or cerebrovascular disease Performed By: #### 8 6003 ####[facility] [place] [address], [facility] PRODUCT CODE 3 E0336 Normal [facility] Comment on above: Order Comment: Hemog lobin < 9 gm/dl with known cardiac or cerebrovascular disease Performed By: #### 8 6003 ####[facility] [place] [address], [facility] PRODUCT STATUS 1 PT Normal The [facility] Comment on above: Order Comment: Hemog lobin < 9 gm/dl with known cardiac or cerebrovascular disease Result Comment: Resu lt changed by IF on 05/22/2021 17:51. The previous value was XM.Result changed by IF on 05/23/2021 00:30. The previous value was IS. Performed By: #### 8 6003 ####[facility] [place] [address], [facility] PRODUCT STATUS 2 RE Normal [facility] Comment on above: Order Comment: Hemog lobin < 9 gm/dl with known cardiac or cerebrovascular disease Result Comment: Resu lt changed by IF on 05/24/2021 07:35. The previous value was XM. Performed By: #### 8 6003 ####[facility] [place] [address], [facility] PRODUCT STATUS 3 RE Normal [facility] Comment on above: Order Comment: Hemog lobin < 9 gm/dl with known cardiac or cerebrovascular disease Result Comment: Resu lt changed by IF on 05/24/2021 07:35. The previous value was XM. Performed By: #### 8 6003 ####[facility], [place] [id number] [place] [address] UNIT ABO 1 O Normal [facility] Comment on above: Order Comment: Hemog lobin < 9 gm/dl with known cardiac or cerebrovascular disease Performed By: #### 8 6003 ####[facility] [place] [address], [facility] UNIT ABO 2 O Normal [facility] Comment on above: Order Comment: Hemog lobin < 9 gm/dl with known cardiac or cerebrovascular disease Performed By: #### 8 6003 ####[facility] [place] [address], [facility] UNIT ABO 3 O Normal [facility] Comment on above: Order Comment: Hemog lobin < 9 gm/dl with known cardiac or cerebrovascular disease Performed By: #### 8 6003 ####[facility] [place] [address], [facility] UNIT ID 1 [id number] Normal [facility] Comment on above: Order Comment: Hemog lobin < 9 gm/dl with known cardiac or cerebrovascular disease Performed By: #### 8 6003 ####[facility] UNIT ID 2 [id number] Normal [facility] Comment on above: Order Comment: Hemog lobin < 9 gm/dl with known cardiac or cerebrovascular disease Performed By: #### 8 6003 ####[facility] UNIT ID 3 [id number] Normal [facility] Comment on above: Order Comment: Hemog lobin < 9 gm/dl with known cardiac or cerebrovascular disease Performed By: #### 8 6003 ####[facility] UNIT RH 1 Negative Normal [facility] Comment on above: Order Comment: Hemog lobin < 9 gm/dl with known cardiac or cerebrovascular disease Performed By: #### 8 6003 ####[facility] UNIT RH 2 Positive Normal [facility] Comment on above: Order Comment: Hemog lobin < 9 gm/dl with known cardiac or cerebrovascular disease Performed By: #### 8 6003 ####[facility] UNIT RH 3 Positive Normal [facility] Comment on above: Order Comment: Hemog lobin < 9 gm/dl with known cardiac or cerebrovascular disease Performed By: #### 8 6003 ####[facility] VANCOMYCIN TIMEDon 1 VANCOMYCIN TIMED 19.6 mcg/mL Normal [facility] Comment on above: Performed By: #### 0 0071, 23898, 85202 ####[facility] [place] [address], [facility] BASIC METABOLIC PANELon 09-2 Calcium [Mass/Vol] 8.5 mg/dL Low 8.6-10.3 [facility] Comment on above: Order Comment: No: D o not add to previous draw Performed By: #### 1 0070, 20634, 05837 ####[facility] [place] [address], [facility] Chloride [Moles/Vol] 96 mmol/L Low 98-107 [facility] Comment on above: Order Comment: No: D o not add to previous draw Performed By: #### 1 0070, 84841, 54980 ####[facility] [place] [address], [facility] CO2 [Moles/Vol] 37 mmol/L High 21-31 [facility] Comment on above: Order Comment: No: D o not add to previous draw Performed By: #### 1 0070, 21747, 36129 ####[facility] [place] [address], [facility] Creatinine [Mass/Vol] 0.92 mg/dL Normal 0.70-1.30 [facility] Comment on above: Order Comment: No: D o not add to previous draw Performed By: #### 1 0070, 61599, 07453 ####[facility] [place] [address], [facility] GFR/1.73 sq M.predicted among blacks MDRD (S/P/Bld) [Vol rate/Area] mL/min/{1.73_m2} Normal >60 [facility] Comment on above: Order Comment: No: D o not add to previous draw Result Comment: Calc ulation may not be valid for patients over 70 years Performed By: #### 1 0070, 24471, 70026 ####[facility] [place] [address], [place] GFR/1.73 sq M.predicted among non-blacks MDRD (S/P/Bld) [Vol rate/Area] mL/min/{1.73_m2} Normal >60 [facility] Comment on above: Order Comment: No: D o not add to previous draw Result Comment: Calc ulation may not be valid for patients over 70 years Performed By: #### 1 0070, 45052, 49121 ####[facility] [place] [address], [facility] Glucose [Mass/Vol] 117 mg/dL High 70-[address] [facility] Comment on above: Order Comment: No: D o not add to previous draw Performed By: #### 1 0070, 77759, 93007 ####[facility] [place] [address], [facility] Potassium [Moles/Vol] 3.9 mmol/L Normal 3.5-5.1 [facility] Comment on above: Order Comment: No: D o not add to previous draw Performed By: #### 1 0070, 80304, 47215 ####[facility] [facility] [place] [address], [facility] Sodium [Moles/Vol] 134 mmol/L Low 136-[address] [facility] Comment on above: Order Comment: No: D o not add to previous draw Performed By: #### 1 0070, 20764, 51265 ####[facility] [place] [address], [facility] Urea nitrogen [Mass/Vol] 17 mg/dL Normal 7-25 [facility] Comment on above: Order Comment: No: D o not add to previous draw Performed By: #### 1 0070, 09790, 52897 ####[facility] [place] [address], [facility] CBC COMPLETE BLOOD COUNTon 0 05-21-2021 Erythrocyte distribution width (RBC) [Ratio] 14.3 % Normal 11.5-15.0 [facility] Comment on above: Order Comment: No: D o not add to previous draw Performed By: #### 5 0608 ####[facility] Hematocrit (Bld) [Volume fraction] 27.2 % Low 39.0-50.0 [facility] Comment on above: Order Comment: No: D o not add to previous draw Performed By: #### 5 0608 ####[facility] [place] [address] Hemoglobin (Bld) [Mass/Vol] 8.1 g/dL Low 13.0-17.0 [facility] Comment on above: Order Comment: No: D o not add to previous draw Performed By: #### 5 0608 ####[address] MCH (RBC) [Entitic mass] 27.6 pg Normal 27.0-33.0 [facility] Comment on above: Order Comment: No: D o not add to previous draw Performed By: #### 5 0608 ####[address] MCHC (RBC) [Mass/Vol] 29.8 g/dL Low 32.0-35.0 [facility] Comment on above: Order Comment: No: D o not add to previous draw Performed By: #### 5 0608 ####[address] MCV (RBC) [Entitic vol] 92.8 fL Normal 82.0-98.0 [facility] Comment on above: Order Comment: No: D o not add to previous draw Performed By: #### 5 0608 ####[address] Nucleated RBC/100 WBC (Bld) [Ratio] 0 % Normal 0-0 [facility] Comment on above: Order Comment: No: D o not add to previous draw Performed By: #### 5 0608 ####[facility] [facility].[address] PLAT CNT 329 10*3/uL Normal 150-400 [facility] Comment on above: Order Comment: No: D o not add to previous draw Performed By: #### 5 0608 ####[facility] [facility].[address] RBC (Bld) [#/Vol] 2.93 10*6/uL Low 4.20-5.70 [facility] Comment on above: Order Comment: No: D o not add to previous draw Performed By: #### 5 0608 ####[facility] [facility].[address] WBC (Bld) [#/Vol] 6.21 10*3/uL Normal 4.00-10.60 [facility] Comment on above: Order Comment: No: D o not add to previous draw Performed By: #### 5 0608 ####[facility] [facility].[address] MAGNESIUM BLOODon 05-21-2021 Magnesium [Mass/Vol] 2.0 mg/dL Normal 1.9-2.7 [facility] Comment on above: Order Comment: No: D o not add to previous draw Performed By: #### 1 0070, 23152, 39624 ####[facility] [facility].[address] Operative Reporton 1 Operative Report Normal [facility] PHOSPHORUS BLOODon 1 Phosphate [Mass/Vol] 4.0 mg/dL Normal 2.5-5.0 [facility] Comment on above: Order Comment: No: D o not add to previous draw Performed By: #### 1 0070, 25350, 31638 ####[facility] [place] [address], [facility] POC GLUCOSE LABon 05-21-2021 Glucose [Mass/Vol] 143 mg/dL High 70-[address] [facility] Comment on above: Performed By: #### 8 5499 ####[facility] [place] [address], [place] Glucose [Mass/Vol] 123 mg/dL High 70-[address] [facility] Comment on above: Performed By: #### 8 5499 ####[facility] [place] [address], [place] Glucose [Mass/Vol] 128 mg/dL High 70-[address] [facility] Comment on above: Performed By: #### 8 5499 ####[facility] [place] [address], [place] Glucose [Mass/Vol] 158 mg/dL High 70-[address] [facility] Comment on above: Performed By: #### 8 5499 ####[facility] [facility] [place] [address], [facility] PORTABLE CHEST 1 VIEWon 04-25 PORTABLE CHEST 1 VIEW Normal [facility] Comment on above: Order Comment: evalu ate for Atelectasis PROTHROMBIN TIMEon INR Coag (PPP) [Relative time] 1.12 {INR} Normal 0.91-1.16 [facility] Comment on above: [...] OF ACTION, CLINICALEFFECTIVENESS, AND OPTIMAL THERAPEUTIC RANGE. [id number]. Performed By: #### 5 6101 ####[place] [id number] [address] PT Coag (PPP) [Time] 14.4 s Normal 12.3-14.8 [facility] Comment on above: Order Comment: No: D o not add to previous draw Result Comment: ALL RESULTS MUST BE INTERPRETED WITH RESPECT TO BLOOD DRAWING ARTIFACTOR DILUTION ERROR OF ANTICOAGULANT AT THE TIME OF SAMPLING. Performed By: #### 5 6101 ####[place] [id number] [facility].[address] BASIC METABOLIC PANELon 09-2 Calcium [Mass/Vol] 8.8 mg/dL Normal 8.6-10.3 [facility] Comment on above: Order Comment: No: D o not add to previous draw Performed By: #### 1 0070, 17070, 37254 ####[facility] [facility] [place] [address], [facility] Chloride [Moles/Vol] 96 mmol/L Low 98-107 [facility] Comment on above: Order Comment: No: D o not add to previous draw Performed By: #### 1 0070, 42943, 39952 ####[facility] [facility] [place] [address], [facility] CO2 [Moles/Vol] 33 mmol/L High 21-31 [facility] Comment on above: Order Comment: No: D o not add to previous draw Performed By: #### 1 0070, 32441, 37910 ####[facility] [place] [address], [place] Creatinine [Mass/Vol] 0.90 mg/dL Normal 0.70-1.30 [facility] Comment on above: Order Comment: No: D o not add to previous draw Performed By: #### 1 0, 93439, 20813 ####[facility] [place] [address], [place] GFR/1.73 sq M.predicted among blacks MDRD (S/P/Bld) [Vol rate/Area] mL/min/{1.73_m2} Normal >60 [facility] Comment on above: Order Comment: No: D o not add to previous draw Result Comment: Calc ulation may not be valid for patients over 70 years Performed By: #### 1 0, 82957, 71180 ####[facility] [place] [address], [place] GFR/1.73 sq M.predicted among non-blacks MDRD (S/P/Bld) [Vol rate/Area] mL/min/{1.73_m2} Normal >60 [facility] Comment on above: Order Comment: No: D o not add to previous draw Result Comment: Calc ulation may not be valid for patients over 70 years Performed By: #### 1 0, 75375, 43230 ####[facility] [place] [address], [place] Glucose [Mass/Vol] 113 mg/dL High 70-100 [facility] Comment on above: Order Comment: No: D o not add to previous draw Performed By: #### 1 0070, 55926, 56702 ####[facility] [place] [address], [place] Potassium [Moles/Vol] 3.6 mmol/L Normal 3.5-5.1 [facility] Comment on above: Order Comment: No: D o not add to previous draw Performed By: #### 1 0070, 01950, 71333 ####[facility] [place] [address], [facility] Sodium [Moles/Vol] 135 mmol/L Low 136-[address] [facility] Comment on above: Order Comment: No: D o not add to previous draw Performed By: #### 1 0070, 43582, 31460 ####[facility] [facility] [place] [address], [facility] Urea nitrogen [Mass/Vol] 15 mg/dL Normal 7-25 [facility] Comment on above: Order Comment: No: D o not add to previous draw Performed By: #### 1 0, 53892, 39652 ####[facility] [facility] CBC COMPLETE BLOOD COUNTon 0 05-20-2021 Erythrocyte distribution width (RBC) [Ratio] 14.1 % Normal 11.5-15.0 [facility] Comment on above: Order Comment: No: D o not add to previous draw Performed By: #### 5 0608 ####[facility] [facility] [place] [address], [facility] Hematocrit (Bld) [Volume fraction] 28.9 % Low 39.0-50.0 [facility] Comment on above: Order Comment: No: D o not add to previous draw Performed By: #### 5 0608 ####[facility] [facility] [place] [address], [facility] Hemoglobin (Bld) [Mass/Vol] 8.9 g/dL Low 13.0-17.0 [facility] Comment on above: Order Comment: No: D o not add to previous draw Performed By: #### 5 0608 ####[facility] MCH (RBC) [Entitic mass] 28.3 pg Normal 27.0-33.0 [facility] Comment on above: Order Comment: No: D o not add to previous draw Performed By: #### 5 0608 ####[facility] [facility] [place] [address], [facility] MCHC (RBC) [Mass/Vol] 30.8 g/dL Low 32.0-35.0 [facility] Comment on above: Order Comment: No: D o not add to previous draw Performed By: #### 5 0608 ####[address] MCV (RBC) [Entitic vol] 92.0 fL Normal 82.0-98.0 [facility] Comment on above: Order Comment: No: D o not add to previous draw Performed By: #### 5 0608 ####[address] Nucleated RBC/100 WBC (Bld) [Ratio] 0 % Normal 0-0 [facility] Comment on above: Order Comment: No: D o not add to previous draw Performed By: #### 5 0608 ####[place] [id number] PLAT CNT 339 10*3/uL Normal 150-400 [facility] Comment on above: Order Comment: No: D o not add to previous draw Performed By: #### 5 0608 ####[facility] [place] [address], [facility] RBC (Bld) [#/Vol] 3.14 10*6/uL Low 4.20-5.70 [facility] Comment on above: Order Comment: No: D o not add to previous draw Performed By: #### 5 0608 ####[facility] [place], [place] [id number], [place] WBC (Bld) [#/Vol] 6.69 10*3/uL Normal 4.00-10.60 [facility] Comment on above: Order Comment: No: D o not add to previous draw Performed By: #### 5 0608 ####[facility] Erythrocyte distribution width (RBC) [Ratio] 14.1 % Normal 11.5-15.0 [facility] Comment on above: Order Comment: No: D o not add to previous draw Performed By: #### 5 0608 ####[place] [id number] Hematocrit (Bld) [Volume fraction] 29.5 % Low 39.0-50.0 [facility] Comment on above: Order Comment: No: D o not add to previous draw Performed By: #### 5 0608 ####[facility] Hemoglobin (Bld) [Mass/Vol] 9.3 g/dL Low 13.0-17.0 [facility] Comment on above: Order Comment: No: D o not add to previous draw Performed By: #### 5 0608 ####[facility] MCH (RBC) [Entitic mass] 28.2 pg Normal 27.0-33.0 [facility] Comment on above: Order Comment: No: D o not add to previous draw Performed By: #### 5 0608 ####[facility] MCHC (RBC) [Mass/Vol] 31.5 g/dL Low 32.0-35.0 [facility] Comment on above: Order Comment: No: D o not add to previous draw Performed By: #### 5 0608 ####[facility] [place] [address], [facility] MCV (RBC) [Entitic vol] 89.4 fL Normal 82.0-98.0 [facility] Comment on above: Order Comment: No: D o not add to previous draw Performed By: #### 5 0608 ####[facility] [place] [address], [facility] Nucleated RBC/100 WBC (Bld) [Ratio] 0 % Normal 0-0 [facility] Comment on above: Order Comment: No: D o not add to previous draw Performed By: #### 5 0608 ####[facility] [place] [address], [facility] PLAT CNT 338 10*3/uL Normal 150-400 [facility] Comment on above: Order Comment: No: D o not add to previous draw Performed By: #### 5 0608 ####[place] [address], [facility] RBC (Bld) [#/Vol] 3.30 10*6/uL Low 4.20-5.70 [facility] Comment on above: Order Comment: No: D o not add to previous draw Performed By: #### 5 0608 ####[facility] [facility] [place] [address], [facility] WBC (Bld) [#/Vol] 6.66 10*3/uL Normal 4.00-10.60 [facility] Comment on above: Order Comment: No: D o not add to previous draw Performed By: #### 5 0608 ####[place] [address], [facility] MAGNESIUM BLOODon 05-20-2021 Magnesium [Mass/Vol] 1.9 mg/dL Normal 1.9-2.7 [facility] Comment on above: Order Comment: No: D o not add to previous draw Performed By: #### 1 0070, 12584, 16220 ####[facility] [place] [address], [place] PHOSPHORUS BLOODon 1 Phosphate [Mass/Vol] 3.7 mg/dL Normal 2.5-5.0 [facility] Comment on above: Order Comment: No: D o not add to previous draw Performed By: #### 1 0, 01519, 31847 ####[facility] [place] [address], [place] POC GLUCOSE LABon 05-20-2021 Glucose [Mass/Vol] 130 mg/dL High 70-100 [facility] Comment on above: Performed By: #### 8 5499 ####[facility] [place] [address], [place] Glucose [Mass/Vol] 119 mg/dL High 70-100 [facility] Comment on above: Performed By: #### 8 5499 ####[facility] [place] [address], [place] Glucose [Mass/Vol] 118 mg/dL High 70-100 [facility] Comment on above: Performed By: #### 8 5499 ####[facility] [place] [address], [place] Glucose [Mass/Vol] 118 mg/dL High 70-100 [facility] Comment on above: Performed By: #### 8 5499 ####[facility] [place] [address], [place] Glucose [Mass/Vol] 119 mg/dL High 70-100 [facility] Comment on above: Performed By: #### 8 5499 ####[facility] [place] [address], [place] PROTHROMBIN TIMEon 1 INR Coag (PPP) [Relative time] 1.09 {INR} Normal 0.91-1.16 [facility] Comment [...] OF ACTION, CLINICALEFFECTIVENESS, AND OPTIMAL THERAPEUTIC RANGE. [id number]. Performed By: #### 5 6101 ####[facility] [facility].[address] PT Coag (PPP) [Time] 14.1 s Normal 12.3-14.8 [facility] Comment on above: Order Comment: No: D o not add to previous draw Result Comment: ALL RESULTS MUST BE INTERPRETED WITH RESPECT TO BLOOD DRAWING ARTIFACTOR DILUTION ERROR OF ANTICOAGULANT AT THE TIME OF SAMPLING. Performed By: #### 5 6101 ####[facility] [facility].[address] TYPE AND SCREENon 05-20-2021 ABO INTERPRETATION O Normal [facility] Comment on above: Performed By: #### 6 2586 ####[facility] [facility] [place] [address], [facility] RH INTERPRETATION Positive Normal The [facility] Comment on above: Performed By: #### 6 2586 ####[facility] *MRSA/MSSA DNA NASALon 05-19 *MRSA/MSSA DNA NASAL Clinical Report: (D) Specimen: NASAL SWAB Collected: 05/19/2021 10:27 Status: Final Last Updated: 05/19/2021 15:02 MSSA DNA (Final) Negative MRSA DNA (Final) Negative Normal The [facility] Comment on above: Performed By: #### 3 1595 ####[facility] CBC W/DIFFon 05-19-2021 ABS IMM GRANS 0.0 10*3/uL Normal 0.0-0.2 The [facility] Comment on above: Order Comment: No: D o not add to previous draw Performed By: #### 5 0103 ####[facility] ABS NEUTROPHILS 4.3 10*3/uL Normal 1.6-7.6 The [facility] Comment on above: Order Comment: No: D o not add to previous draw Performed By: #### 5 0103 ####[facility] Basophils (Bld) [#/Vol] 0.0 10*3/uL Normal 0.0-0.2 The [facility] Comment on above: Order Comment: No: D o not add to previous draw Performed By: #### 5 0103 ####[facility] Basophils/100 WBC (Bld) 0.5 % Normal 0.0-1.0 The [facility] Comment on above: Order Comment: No: D o not add to previous draw Performed By: #### 5 0103 ####[facility] Eosinophils (Bld) [#/Vol] 0.2 10*3/uL Normal 0.0-0.5 The [facility] Comment on above: Order Comment: No: D o not add to previous draw Performed By: #### 5 0103 ####[place] [id number] [address] Eosinophils/100 WBC (Bld) 3.1 % Normal 0.0-6.0 The [facility] Comment on above: Order Comment: No: D o not add to previous draw Performed By: #### 5 0103 ####[address] Erythrocyte distribution width (RBC) [Ratio] 14.2 % Normal 11.5-15.0 The [facility] Comment on above: Order Comment: No: D o not add to previous draw Performed By: #### 5 0103 ####[place] [id number] [address] Hematocrit (Bld) [Volume fraction] 29.0 % Low 39.0-50.0 The [facility] Comment on above: Order Comment: No: D o not add to previous draw Performed By: #### 5 0103 ####[place] [id number] [address] Hemoglobin (Bld) [Mass/Vol] 9.2 g/dL Low 13.0-17.0 The [facility] Comment on above: Order Comment: No: D o not add to previous draw Performed By: #### 5 0103 ####[place] [id number] [place] [address], [facility] IMMATURE GRANS 0.5 % Normal 0.0-1.0 The [facility] Comment on above: Order Comment: No: D o not add to previous draw Performed By: #### 5 0103 ####[address] [place] [address], [place] Lymphocytes (Bld) [#/Vol] 1.0 10*3/uL Low 1.2-4.0 The [facility] Comment on above: Order Comment: No: D o not add to previous draw Performed By: #### 5 0103 ####[address] Lymphocytes/100 WBC (Bld) 15.9 % Low 20.0-45.0 The [facility] Comment on above: Order Comment: No: D o not add to previous draw Performed By: #### 5 0103 ####[address] MCH (RBC) [Entitic mass] 28.5 pg Normal 27.0-33.0 The [facility] Comment on above: Order Comment: No: D o not add to previous draw Performed By: #### 5 0103 ####[facility] [place] [address] MCHC (RBC) [Mass/Vol] 31.7 g/dL Low 32.0-35.0 The [facility] Comment on above: Order Comment: No: D o not add to previous draw Performed By: #### 5 0103 ####[address] MCV (RBC) [Entitic vol] 89.8 fL Normal 82.0-98.0 The [facility] Comment on above: Order Comment: No: D o not add to previous draw Performed By: #### 5 0103 ####[place] [address], [facility] Monocytes (Bld) [#/Vol] 0.6 10*3/uL Normal 0.1-1.0 The [facility] Comment on above: Order Comment: No: D o not add to previous draw Performed By: #### 5 0103 ####[facility] [place] [address], [facility] MONOS 10.2 % Normal 5.0-12.0 The [facility] Comment on above: Order Comment: No: D o not add to previous draw Performed By: #### 5 3 ####[facility] [place] [address], [place] Neutrophils/100 WBC (Bld) 69.8 % Normal 40.0-72.0 The [facility] Comment on above: Order Comment: No: D o not add to previous draw Performed By: #### 5 3 ####[facility] [place] [address], [facility] Nucleated RBC/100 WBC (Bld) [Ratio] 0 % Normal 0-0 The [facility] Comment on above: Order Comment: No: D o not add to previous draw Performed By: #### 5 3 ####[facility] [place] [address], [facility] PLAT CNT 294 10*3/uL Normal 150-400 The [facility] Comment on above: Order Comment: No: D o not add to previous draw Performed By: #### 5 3 ####[facility] [facility] [place] [address], [facility] RBC (Bld) [#/Vol] 3.23 10*6/uL Low 4.20-5.70 The [facility] Comment on above: Order Comment: No: D o not add to previous draw Performed By: #### 5 3 ####[facility] [place] [address], [place] WBC (Bld) [#/Vol] 6.09 10*3/uL Normal 4.00-10.60 The [facility] Comment on above: Order Comment: No: D o not add to previous draw Performed By: #### 5 3 ####[facility] [place] [address], [facility] COMP METABOLIC PANELon 05-19 Albumin [Mass/Vol] 2.8 g/dL Low 3.5-5.[address] [facility] Comment on above: Order Comment: No: D o not add to previous draw Performed By: #### 4 1000, 16128, 35119 ####[facility] [place] [address], [facility] ALKALINE PHOSPH 59 IU/L Normal 34-104 The [facility] Comment on above: Order Comment: No: D o not add to previous draw Performed By: #### 4 1000, 90174, 80112 ####[facility] [place] [address], [facility] ALT [Catalytic activity/Vol] 9 U/L Normal 7-52 The [facility] Comment on above: Order Comment: No: D o not add to previous draw Performed By: #### 4 1000, 63671, 25518 ####[facility] [id number], [facility] AST [Catalytic activity/Vol] 20 U/L Normal 13-39 The [facility] Comment on above: Order Comment: No: D o not add to previous draw Performed By: #### 4 1000, 00946, 59765 ####[facility] [id number], [facility] Bilirubin [Mass/Vol] 0.6 mg/dL Normal 0.3-1.0 The [facility] Comment on above: Order Comment: No: D o not add to previous draw Performed By: #### 4 1000, 06063, 90692 ####[facility] [id number], [facility] Calcium [Mass/Vol] 8.5 mg/dL Low 8.6-10.[address] [facility] Comment on above: Order Comment: No: D o not add to previous draw Performed By: #### 4 1000, 02412, 26033 ####[facility] [place] [address], [place] Chloride [Moles/Vol] 98 mmol/L Normal 98-107 The [facility] Comment on above: Order Comment: No: D o not add to previous draw Performed By: #### 4 1000, 57700, 16856 ####[facility] [place] [address], [place] CO2 [Moles/Vol] 31 mmol/L Normal 21-31 The [facility] Comment on above: Order Comment: No: D o not add to previous draw Performed By: #### 4 1000, 02463, 31252 ####[facility] [place] [address], [place] Creatinine [Mass/Vol] 0.74 mg/dL Normal 0.70-1.30 The [facility] Comment on above: Order Comment: No: D o not add to previous draw Performed By: #### 4 1000, 03727, 65208 ####[facility] [place] [address], [place] GFR/1.73 sq M.predicted among blacks MDRD (S/P/Bld) [Vol rate/Area] mL/min/{1.73_m2} Normal >60 The [facility] Comment on above: Order Comment: No: D o not add to previous draw Result Comment: Calc ulation may not be valid for patients over 70 years Performed By: #### 4 1000, 85238, 83329 ####[facility] [place] [address], [place] GFR/1.73 sq M.predicted among non-blacks MDRD (S/P/Bld) [Vol rate/Area] mL/min/{1.73_m2} Normal >60 The [facility] Comment on above: Order Comment: No: D o not add to previous draw Result Comment: Calc ulation may not be valid for patients over 70 years Performed By: #### 4 1000, 36508, 31620 ####[facility] [place] [address], [place] Glucose [Mass/Vol] 143 mg/dL High 70-[address] [facility] Comment on above: Order Comment: No: D o not add to previous draw Performed By: #### 4 1000, 34933, 05621 ####[facility] [place] [address], [place] Potassium [Moles/Vol] 3.4 mmol/L Low 3.5-5.1 The [facility] Comment on above: Order Comment: No: D o not add to previous draw Performed By: #### 4 1000, 41120, 73687 ####[facility] [place] [address], [place] Protein [Mass/Vol] 6.7 g/dL Normal 6.0-8.[address] [facility] Comment on above: Order Comment: No: D o not add to previous draw Performed By: #### 4 1000, 07031, 30169 ####[facility] [place] [address], [place] Sodium [Moles/Vol] 134 mmol/L Low 136-[address] [facility] Comment on above: Order Comment: No: D o not add to previous draw Performed By: #### 4 1000, 89852, 07376 ####[facility] [place] [address], [place] Urea nitrogen [Mass/Vol] 14 mg/dL Normal 7-25 The [facility] Comment on above: Order Comment: No: D o not add to previous draw Performed By: #### 4 1000, 31913, 75161 ####[facility] [place] [address], [place] MAGNESIUM BLOODon 05-19-2021 Magnesium [Mass/Vol] 1.9 mg/dL Normal 1.9-2.7 The [facility] Comment on above: Order Comment: No: D o not add to previous draw Performed By: #### 4 1000, 34584, 22249 ####[facility] [place] [address], [facility] PHOSPHORUS BLOODon 1 Phosphate [Mass/Vol] 3.1 mg/dL Normal 2.5-5.0 The [facility] Comment on above: Order Comment: No: D o not add to previous draw Performed By: #### 4 1000, 85304, 94697 ####[facility] [place] [address], [facility] POC GLUCOSE LABon 05-19-2021 Glucose [Mass/Vol] 124 mg/dL High 70-[address] [facility] Comment on above: Performed By: #### 8 5499 ####[facility] [place] [address], [place] Glucose [Mass/Vol] 132 mg/dL High 70-[address] [facility] Comment on above: Performed By: #### 8 5499 ####[facility] [place] [address], [place] Glucose [Mass/Vol] 153 mg/dL High 70-[address] [facility] Comment on above: Performed By: #### 8 5499 ####[facility] [place] [address], [place] Glucose [Mass/Vol] 133 mg/dL High 70-[address] [facility] Comment on above: Performed By: #### 8 5499 ####[facility] [facility] [place] [address], [facility] POC SARS COV2 ANTIGEN NEGATI VEon 05-19-2021 POC SARS COV2 ANTIGEN NEG Negative Normal NEGATIVE The [facility] Comment on above: Result Comment: [...] of clinicalsigns and symptoms consistent with COVID-19.The [employer] COVID-19 Ag Card is a lateral flow immunoassay intended forthe qualitative detection of nucleocapsid protein antigen [id number] in direct nasal swabs from individuals within [...] Certificate ofAccreditation. Performed By: #### 3 1976 ####[address] VANCOMYCIN TIMEDon VANCOMYCIN TIMED 16.3 mcg/mL Normal The [facility] Comment on above: Performed By: #### 3 0953 ####[address] CBC W/DIFFon 05-18-2021 ABS IMM GRANS 0.0 10*3/uL Normal 0.0-0.2 The [facility] Comment on above: Order Comment: No: D o not add to previous draw Performed By: #### 5 0103 ####[address] ABS NEUTROPHILS 5.1 10*3/uL Normal 1.6-7.6 The [facility] Comment on above: Order Comment: No: D o not add to previous draw Performed By: #### 5 0103 ####[address] [place] [address], [facility] Basophils (Bld) [#/Vol] 0.0 10*3/uL Normal 0.0-0.2 The [facility] Comment on above: Order Comment: No: D o not add to previous draw Performed By: #### 5 0103 ####[facility] [place] [address], [facility] Basophils/100 WBC (Bld) 0.4 % Normal 0.0-1.0 The [facility] Comment on above: Order Comment: No: D o not add to previous draw Performed By: #### 5 0103 ####[place] [id number] [place] [address], [facility] Eosinophils (Bld) [#/Vol] 0.2 10*3/uL Normal 0.0-0.5 The [facility] Comment on above: Order Comment: No: D o not add to previous draw Performed By: #### 5 0103 ####[facility] [place] [address], [facility] Eosinophils/100 WBC (Bld) 2.6 % Normal 0.0-6.0 The [facility] Comment on above: Order Comment: No: D o not add to previous draw Performed By: #### 5 3 ####[place] [id number] [address] Erythrocyte distribution width (RBC) [Ratio] 14.1 % Normal 11.5-15.0 The [facility] Comment on above: Order Comment: No: D o not add to previous draw Performed By: #### 5 0103 ####[place] [id number] [place] [address], [facility] Hematocrit (Bld) [Volume fraction] 27.5 % Low 39.0-50.0 The [facility] Comment on above: Order Comment: No: D o not add to previous draw Performed By: #### 5 0103 ####[facility] Hemoglobin (Bld) [Mass/Vol] 8.6 g/dL Low 13.0-17.0 The [facility] Comment on above: Order Comment: No: D o not add to previous draw Performed By: #### 5 0103 ####[facility] [place] [address], [facility] IMMATURE GRANS 0.1 % Normal 0.0-1.0 The [facility] Comment on above: Order Comment: No: D o not add to previous draw Performed By: #### 5 0103 ####[address] Lymphocytes (Bld) [#/Vol] 1.3 10*3/uL Normal 1.2-4.0 The [facility] Comment on above: Order Comment: No: D o not add to previous draw Performed By: #### 5 0103 ####[facility] [place] [address] Lymphocytes/100 WBC (Bld) 18.0 % Low 20.0-45.0 The [facility] Comment on above: Order Comment: No: D o not add to previous draw Performed By: #### 5 0103 ####[facility] MCH (RBC) [Entitic mass] 28.7 pg Normal 27.0-33.0 The [facility] Comment on above: Order Comment: No: D o not add to previous draw Performed By: #### 5 0103 ####[facility] [place] [address], [facility] MCHC (RBC) [Mass/Vol] 31.3 g/dL Low 32.0-35.0 The [facility] Comment on above: Order Comment: No: D o not add to previous draw Performed By: #### 5 0103 ####[facility] [place] [address], [facility] MCV (RBC) [Entitic vol] 91.7 fL Normal 82.0-98.0 The [facility] Comment on above: Order Comment: No: D o not add to previous draw Performed By: #### 5 0103 ####[facility] [place] [address], [facility] Monocytes (Bld) [#/Vol] 0.7 10*3/uL Normal 0.1-1.0 The [facility] Comment on above: Order Comment: No: D o not add to previous draw Performed By: #### 5 0103 ####[facility] [facility] [place] [address], [facility] MONOS 10.0 % Normal 5.0-12.0 The [facility] Comment on above: Order Comment: No: D o not add to previous draw Performed By: #### 5 0103 ####[facility] [facility] [place] [address], [facility] Neutrophils/100 WBC (Bld) 68.9 % Normal 40.0-72.0 The [facility] Comment on above: Order Comment: No: D o not add to previous draw Performed By: #### 5 3 ####[facility] [facility] [place] [address], [facility] Nucleated RBC/100 WBC (Bld) [Ratio] 0 % Normal 0-0 The [facility] Comment on above: Order Comment: No: D o not add to previous draw Performed By: #### 5 0103 ####[facility] [place] [address], [facility] PLAT CNT 288 10*3/uL Normal 150-400 The [facility] Comment on above: Order Comment: No: D o not add to previous draw Performed By: #### 5 3 ####[facility] [place] [address], [facility] RBC (Bld) [#/Vol] 3.00 10*6/uL Low 4.20-5.70 The [facility] Comment on above: Order Comment: No: D o not add to previous draw Performed By: #### 5 0103 ####[facility] [place] [address], [facility] WBC (Bld) [#/Vol] 7.40 10*3/uL Normal 4.00-10.60 The [facility] Comment on above: Order Comment: No: D o not add to previous draw Performed By: #### 5 0103 ####[place] [id number] [facility] COMP METABOLIC PANELon 05-18 Albumin [Mass/Vol] 2.7 g/dL Low 3.5-5.7 [facility] Comment on above: Order Comment: No: D o not add to previous draw Performed By: #### 4 1000, 65931, 09837, 14902 ####[facility] [facility].[address] ALKALINE PHOSPH 62 IU/L Normal 34-104 [facility] Comment on above: Order Comment: No: D o not add to previous draw Performed By: #### 4 1000, 46282, 27013, 04489 ####[facility] ALT [Catalytic activity/Vol] 11 U/L Normal 7-52 [facility] Comment on above: Order Comment: No: D o not add to previous draw Performed By: #### 4 1000, 07686, 00499, 90258 ####[facility] [place] [address], [facility] AST [Catalytic activity/Vol] 31 U/L Normal 13-39 [facility] Comment on above: Order Comment: No: D o not add to previous draw Performed By: #### 4 1000, 06569, 44764, 89912 ####[facility] [place] [address], [place] Bilirubin [Mass/Vol] 0.8 mg/dL Normal 0.3-1.0 [facility] Comment on above: Order Comment: No: D o not add to previous draw Performed By: #### 4 1000, 03549, 55240, 48026 ####[facility] [place] [address], [place] Calcium [Mass/Vol] 8.0 mg/dL Low 8.6-10.3 [facility] Comment on above: Order Comment: No: D o not add to previous draw Performed By: #### 4 1000, 84314, 85612, 19149 ####[facility] [place] [address], [place] Chloride [Moles/Vol] 98 mmol/L Normal 98-107 [facility] Comment on above: Order Comment: No: D o not add to previous draw Performed By: #### 4 1000, 93421, 76934, 22471 ####[facility] [place] [address], [place] CO2 [Moles/Vol] 33 mmol/L High 21-31 [facility] Comment on above: Order Comment: No: D o not add to previous draw Performed By: #### 4 1000, 33032, 65807, 43597 ####[facility] [place] [address], [place] Creatinine [Mass/Vol] 0.89 mg/dL Normal 0.70-1.30 [facility] Comment on above: Order Comment: No: D o not add to previous draw Performed By: #### 4 1000, 79974, 53434, 88890 ####[facility] [place] [address], [place] GFR/1.73 sq M.predicted among blacks MDRD (S/P/Bld) [Vol rate/Area] mL/min/{1.73_m2} Normal >60 [facility] Comment on above: Order Comment: No: D o not add to previous draw Result Comment: Calc ulation may not be valid for patients over 70 years Performed By: #### 4 1000, 53853, 32736, 90690 ####[facility] [place] [address], [facility] GFR/1.73 sq M.predicted among non-blacks MDRD (S/P/Bld) [Vol rate/Area] mL/min/{1.73_m2} Normal >60 [facility] Comment on above: Order Comment: No: D o not add to previous draw Result Comment: Calc ulation may not be valid for patients over 70 years Performed By: #### 4 1000, 35778, 59252, 38617 ####[facility] [place] [address], [facility] Glucose [Mass/Vol] 108 mg/dL High 70-[address] [facility] Comment on above: Order Comment: No: D o not add to previous draw Performed By: #### 4 1000, 72048, 17137, 75854 ####[facility] [place] [address], [facility] Potassium [Moles/Vol] 3.7 mmol/L Normal 3.5-5.1 [facility] Comment on above: Order Comment: No: D o not add to previous draw Performed By: #### 4 1000, 67962, 04134, 33790 ####[facility] [place] [address], [facility] Protein [Mass/Vol] 6.6 g/dL Normal 6.0-8.3 [facility] Comment on above: Order Comment: No: D o not add to previous draw Performed By: #### 4 1000, 38509, 66248, 18792 ####[facility] [place] [address], [facility] Sodium [Moles/Vol] 136 mmol/L Normal 136-[address] [facility] Comment on above: Order Comment: No: D o not add to previous draw Performed By: #### 4 1000, 51873, 69383, 05761 ####[facility] [place] [address], [facility] Urea nitrogen [Mass/Vol] 16 mg/dL Normal 7-25 [facility] Comment on above: Order Comment: No: D o not add to previous draw Performed By: #### 4 1000, 00404, 18474, 69290 ####[facility] [place] [address], [facility] MAGNESIUM BLOODon 05-18-2021 Magnesium [Mass/Vol] 1.9 mg/dL Normal 1.9-2.7 [facility] Comment on above: Order Comment: No: D o not add to previous draw Performed By: #### 4 1000, 10046, 18997, 33578 ####[facility] [place] [address], [facility] PHOSPHORUS BLOODon Phosphate [Mass/Vol] 4.2 mg/dL Normal 2.5-5.0 [facility] Comment on above: Order Comment: No: D o not add to previous draw Performed By: #### 4 1000, 00652, 43718, 50364 ####[facility] [place] [address], [place] POC GLUCOSE LABon 05-18-2021 Glucose [Mass/Vol] 152 mg/dL High 70-[address] [facility] Comment on above: Performed By: #### 8 5499 ####[facility] [place] [address], [place] Glucose [Mass/Vol] 140 mg/dL High 70-100 [facility] Comment on above: Performed By: #### 8 5499 ####[facility] [facility] [place] [address], [facility] Glucose [Mass/Vol] 202 mg/dL High 70-[address] [facility] Comment on above: Performed By: #### 8 5499 ####[facility] [facility] [place] [address], [facility] Glucose [Mass/Vol] 121 mg/dL High 70-[address] [facility] Comment on above: Performed By: #### 8 5499 ####[facility] [facility].[address] PORTABLE CHEST 1 VIEWon 04-25 PORTABLE CHEST 1 VIEW Normal [facility] Comment on above: Order Comment: EValu ate for Effusion VANCOMYCIN TIMEDon VANCOMYCIN TIMED 10.2 mcg/mL Normal The [facility] Comment on above: Performed By: #### 4 1000, 72558, 02180, 46708 ####[facility] [facility].[address] CBC W/DIFFon 05-17-2021 ABS IMM GRANS 0.0 10*3/uL Normal 0.0-0.2 The [facility] Comment on above: Order Comment: No: D o not add to previous draw Performed By: #### 5 0103 ####[facility] [facility].[address] ABS NEUTROPHILS 3.6 10*3/uL Normal 1.6-7.6 The [facility] Comment on above: Order Comment: No: D o not add to previous draw Performed By: #### 5 0103 ####[facility] [facility] [place] [address], [facility] Basophils (Bld) [#/Vol] 0.1 10*3/uL Normal 0.0-0.2 [facility] Comment on above: Order Comment: No: D o not add to previous draw Performed By: #### 5 0103 ####[facility] [facility] [place] [address], [facility] Basophils/100 WBC (Bld) 0.9 % Normal 0.0-1.0 [facility] Comment on above: Order Comment: No: D o not add to previous draw Performed By: #### 5 0103 ####[facility] [place] [address], [facility] Eosinophils (Bld) [#/Vol] 0.1 10*3/uL Normal 0.0-0.5 [facility] Comment on above: Order Comment: No: D o not add to previous draw Performed By: #### 5 0103 ####[facility] [place] [address], [facility] Eosinophils/100 WBC (Bld) 0.9 % Normal 0.0-6.0 [facility] Comment on above: Order Comment: No: D o not add to previous draw Performed By: #### 5 0103 ####[facility] Erythrocyte distribution width (RBC) [Ratio] 14.6 % Normal 11.5-15.0 [facility] Comment on above: Order Comment: No: D o not add to previous draw Performed By: #### 5 0103 ####[facility] [facility] [place] [address], [facility] Hematocrit (Bld) [Volume fraction] 27.7 % Low 39.0-50.0 [facility] Comment on above: Order Comment: No: D o not add to previous draw Performed By: #### 5 0103 ####[facility] [place] [address], [facility] Hemoglobin (Bld) [Mass/Vol] 8.5 g/dL Low 13.0-17.0 [facility] Comment on above: Order Comment: No: D o not add to previous draw Performed By: #### 5 0103 ####[facility] IMMATURE GRANS 0.5 % Normal 0.0-1.0 [facility] Comment on above: Order Comment: No: D o not add to previous draw Performed By: #### 5 0103 ####[facility] [place] [address] Lymphocytes (Bld) [#/Vol] 1.4 10*3/uL Normal 1.2-4.0 [facility] Comment on above: Order Comment: No: D o not add to previous draw Performed By: #### 5 0103 ####[address] Lymphocytes/100 WBC (Bld) 23.3 % Normal 20.0-45.0 [facility] Comment on above: Order Comment: No: D o not add to previous draw Performed By: #### 5 0103 ####[address] MCH (RBC) [Entitic mass] 28.4 pg Normal 27.0-33.0 [facility] Comment on above: Order Comment: No: D o not add to previous draw Performed By: #### 5 0103 ####[facility] [place] [address] MCHC (RBC) [Mass/Vol] 30.7 g/dL Low 32.0-35.0 [facility] Comment on above: Order Comment: No: D o not add to previous draw Performed By: #### 5 0103 ####[facility] [place] [address], [facility] MCV (RBC) [Entitic vol] 92.6 fL Normal 82.0-98.0 [facility] Comment on above: Order Comment: No: D o not add to previous draw Performed By: #### 5 0103 ####[facility] [place] [address], [facility] Monocytes (Bld) [#/Vol] 0.7 10*3/uL Normal 0.1-1.0 [facility] Comment on above: Order Comment: No: D o not add to previous draw Performed By: #### 5 0103 ####[facility] [place] [address], [facility] MONOS 11.7 % Normal 5.0-12.0 [facility] Comment on above: Order Comment: No: D o not add to previous draw Performed By: #### 5 0103 ####[facility] [facility] [place] [address], [facility] Neutrophils/100 WBC (Bld) 62.7 % Normal 40.0-72.0 [facility] Comment on above: Order Comment: No: D o not add to previous draw Performed By: #### 5 0103 ####[facility] [facility] [place] [address], [facility] Nucleated RBC/100 WBC (Bld) [Ratio] 0 % Normal 0-0 [facility] Comment on above: Order Comment: No: D o not add to previous draw Performed By: #### 5 0103 ####[facility] [facility] [place] [address], [facility] PLAT CNT 325 10*3/uL Normal 150-400 The [facility] Comment on above: Order Comment: No: D o not add to previous draw Performed By: #### 5 0103 ####[facility] [facility] [place] [address], [facility] RBC (Bld) [#/Vol] 2.99 10*6/uL Low 4.20-5.70 The [facility] Comment on above: Order Comment: No: D o not add to previous draw Performed By: #### 5 0103 ####[facility] [facility] [place] [address], [facility] WBC (Bld) [#/Vol] 5.79 10*3/uL Normal 4.00-10.60 [facility] Comment on above: Order Comment: No: D o not add to previous draw Performed By: #### 5 0103 ####[facility] [place] [address], [facility] COMP METABOLIC PANELon 05-17 Albumin [Mass/Vol] 2.8 g/dL Low 3.5-5.7 [facility] Comment on above: Order Comment: No: D o not add to previous draw Performed By: #### 4 1000, 44253, 55206 ####[facility] [facility] [place] [address], [facility] ALKALINE PHOSPH 55 IU/L Normal 34-104 [facility] Comment on above: Order Comment: No: D o not add to previous draw Performed By: #### 4 1000, 19567, 46174 ####[facility] [facility] [place] [address], [facility] ALT [Catalytic activity/Vol] 7 U/L Normal 7-52 [facility] Comment on above: Order Comment: No: D o not add to previous draw Performed By: #### 4 1000, 69244, 56183 ####[facility] [place] [address], [facility] AST [Catalytic activity/Vol] 11 U/L Low 13-39 [facility] Comment on above: Order Comment: No: D o not add to previous draw Performed By: #### 4 1000, 73697, 38939 ####[facility] [place] [address], [facility] Bilirubin [Mass/Vol] 0.6 mg/dL Normal 0.3-1.0 [facility] Comment on above: Order Comment: No: D o not add to previous draw Performed By: #### 4 1000, 72083, 16284 ####[facility] [place] [address], [facility] Calcium [Mass/Vol] 8.2 mg/dL Low 8.6-10.3 [facility] Comment on above: Order Comment: No: D o not add to previous draw Performed By: #### 4 1000, 07920, 67109 ####[facility] [place] [address], [place] Chloride [Moles/Vol] 102 mmol/L Normal 98-107 [facility] Comment on above: Order Comment: No: D o not add to previous draw Performed By: #### 4 1000, 78093, 48168 ####[facility] [place] [address], [facility] CO2 [Moles/Vol] 31 mmol/L Normal 21-31 [facility] Comment on above: Order Comment: No: D o not add to previous draw Performed By: #### 4 1000, 77234, 70862 ####[facility] [place] [address], [facility] Creatinine [Mass/Vol] 1.19 mg/dL Normal 0.70-1.30 [facility] Comment on above: Order Comment: No: D o not add to previous draw Performed By: #### 4 1000, 86607, 97931 ####[facility] [id number], [facility] eGFR- non- 59 ml/min/1.73sq m Abnormal >60 The [facility] Comment on above: Order Comment: No: D o not add to previous draw Result Comment: Calc ulation may not be valid for patients over 70 years Performed By: #### 4 1000, 43674, 47773 ####[facility] [place] [address], [facility] GFR/1.73 sq M.predicted among blacks MDRD (S/P/Bld) [Vol rate/Area] mL/min/{1.73_m2} Normal >60 [facility] Comment on above: Order Comment: No: D o not add to previous draw Result Comment: Calc ulation may not be valid for patients over 70 years Performed By: #### 4 1000, 90246, 84705 ####[facility] [place] [address], [place] Glucose [Mass/Vol] 99 mg/dL Normal 70-[address] [facility] Comment on above: Order Comment: No: D o not add to previous draw Performed By: #### 4 1000, 60268, 62363 ####[facility] [place] [address], [place] Potassium [Moles/Vol] 3.7 mmol/L Normal 3.5-5.1 [facility] Comment on above: Order Comment: No: D o not add to previous draw Performed By: #### 4 1000, 93303, 81911 ####[facility] [place] [address], [facility] Protein [Mass/Vol] 6.6 g/dL Normal 6.0-8.3 [facility] Comment on above: Order Comment: No: D o not add to previous draw Performed By: #### 4 1000, 35842, 27945 ####[facility] [place] [address], [place] Sodium [Moles/Vol] 138 mmol/L Normal 136-[address] [facility] Comment on above: Order Comment: No: D o not add to previous draw Performed By: #### 4 1000, 14942, 49735 ####[facility] [place] [address], [place] Urea nitrogen [Mass/Vol] 16 mg/dL Normal 7-25 [facility] Comment on above: Order Comment: No: D o not add to previous draw Performed By: #### 4 1000, 36250, 07539 ####[facility] [place] [address], [place] MAGNESIUM BLOODon 05-17-2021 Magnesium [Mass/Vol] 2.0 mg/dL Normal 1.9-2.7 [facility] Comment on above: Order Comment: No: D o not add to previous draw Performed By: #### 4 1000, 51264, 06259 ####[facility] [place] [address], [place] PHOSPHORUS BLOODon Phosphate [Mass/Vol] 4.6 mg/dL Normal 2.5-5.0 [facility] Comment on above: Order Comment: No: D o not add to previous draw Performed By: #### 4 1000, 65431, 21281 ####[facility] [place] [address], [place] POC GLUCOSE LABon 05-17-2021 Glucose [Mass/Vol] 139 mg/dL High 70-100 [facility] Comment on above: Performed By: #### 8 5499 ####[facility] [place] [address], [place] Glucose [Mass/Vol] 100 mg/dL Normal 70-100 [facility] Comment on above: Performed By: #### 8 5499 ####[facility] [place] [address], [place] Glucose [Mass/Vol] 122 mg/dL High 70-100 [facility] Comment on above: Performed By: #### 8 5499 ####[facility] [place] [address], [place] Glucose [Mass/Vol] 107 mg/dL High 70-100 [facility] Comment on above: Performed By: #### 8 5499 ####[facility] PORTABLE CHEST 1 VIEWon 04-25 PORTABLE CHEST 1 VIEW Normal [facility] Comment on above: Order Comment: evalu ate for Atelectasis *ANAEROBIC CULTUREon 021 *ANAEROBIC CULTURE Clinical Report: (D) Specimen/Source: TISSUE/INTRAOP SPEC Collected: 05/16/2021 10:48 Status: Final Last Updated: 05/21/2021 08:50 (1) STERNAL TISSUE ISO (Final) No Anaerobes Isolated Day 5 Normal [facility] Comment on above: Order Comment: BRANDT AL TISSUE Performed By: #### 3 0312 ####[facility] *ANAEROBIC CULTURE Clinical Report: (D) Specimen/Source: SWAB/INTRAOP SPEC Collected: 05/16/2021 10:45 Status: Final Last Updated: 05/21/2021 08:50 (1) STERNAL WOUND ISO (Final) No Anaerobes Isolated Day 5 Normal [facility] Comment on above: Order Comment: BRANDT AL WOUND Performed By: #### 3 0312 ####[facility] *TISSUE CULTUREon 05-16-2021 *TISSUE CULTURE Normal [facility] Comment on above: Order Comment: BRANDT AL TISSUE Performed By: #### 3 0338 ####[facility] [place], [place] [id number] [place] [address] *WOUND CULTUREon 05-16-2021 *WOUND CULTURE Normal The [facility] Comment on above: Order Comment: BRANDT AL WOUND Performed By: #### 3 0343 ####[facility] [place], [place] [id number] [place] [address] APTTon 05-16-2021 aPTT Coag (Bld) [Time] 32.6 s Normal 25.0-35.0 [facility] Comment on above: Order Comment: [...] THIS PURPOSE. Performed By: #### 5 7307, 64706 ####[facility] [place] [address], [facility] BASIC METABOLIC PANELon 04-25 Calcium [Mass/Vol] 8.5 mg/dL Low 8.6-10.3 [facility] Comment on above: Order Comment: No: D o not add to previous draw Performed By: #### 4 1000, 73356, 43922 ####[facility] [place] [address], [facility] Chloride [Moles/Vol] 101 mmol/L Normal 98-107 [facility] Comment on above: Order Comment: No: D o not add to previous draw Performed By: #### 4 1000, 07046, 53228 ####[facility] [place] [address], [place] CO2 [Moles/Vol] 31 mmol/L Normal 21-31 [facility] Comment on above: Order Comment: No: D o not add to previous draw Performed By: #### 4 1000, 86765, 68992 ####[facility] [place] [address], [place] Creatinine [Mass/Vol] 0.66 mg/dL Low 0.70-1.30 [facility] Comment on above: Order Comment: No: D o not add to previous draw Performed By: #### 4 1000, 99445, 21939 ####[facility] [id number], [place] GFR/1.73 sq M.predicted among blacks MDRD (S/P/Bld) [Vol rate/Area] mL/min/{1.73_m2} Normal >60 [facility] Comment on above: Order Comment: No: D o not add to previous draw Result Comment: Calc ulation may not be valid for patients over 70 years Performed By: #### 4 1000, 58882, 19405 ####[facility] [place] [address], [facility] GFR/1.73 sq M.predicted among non-blacks MDRD (S/P/Bld) [Vol rate/Area] mL/min/{1.73_m2} Normal >60 [facility] Comment on above: Order Comment: No: D o not add to previous draw Result Comment: Calc ulation may not be valid for patients over 70 years Performed By: #### 4 1000, 64768, 13406 ####[facility] [place] [address], [facility] Glucose [Mass/Vol] 117 mg/dL High 70-[address] [facility] Comment on above: Order Comment: No: D o not add to previous draw Performed By: #### 4 1000, 74810, 64129 ####[facility] [place] [address], [place] Potassium [Moles/Vol] 4.1 mmol/L Normal 3.5-5.1 [facility] Comment on above: Order Comment: No: D o not add to previous draw Performed By: #### 4 1000, 04598, 43238 ####[facility] [place] [address], [place] Sodium [Moles/Vol] 136 mmol/L Normal 136-[address] [facility] Comment on above: Order Comment: No: D o not add to previous draw Performed By: #### 4 1000, 65208, 10644 ####[facility] [place] [address], [place] Urea nitrogen [Mass/Vol] 11 mg/dL Normal 7-25 [facility] Comment on above: Order Comment: No: D o not add to previous draw Performed By: #### 4 1000, 23140, 35633 ####[facility] [facility].[address] CBC COMPLETE BLOOD COUNTon 0 05-16-2021 Erythrocyte distribution width (RBC) [Ratio] 14.5 % Normal 11.5-15.0 [facility] Comment on above: Order Comment: No: D o not add to previous draw Performed By: #### 5 0608 ####[facility] Hematocrit (Bld) [Volume fraction] 30.5 % Low 39.0-50.0 [facility] Comment on above: Order Comment: No: D o not add to previous draw Performed By: #### 5 0608 ####[facility] Hemoglobin (Bld) [Mass/Vol] 9.5 g/dL Low 13.0-17.0 [facility] Comment on above: Order Comment: No: D o not add to previous draw Performed By: #### 5 0608 ####[facility] [facility].[address] MCH (RBC) [Entitic mass] 28.5 pg Normal 27.0-33.0 [facility] Comment on above: Order Comment: No: D o not add to previous draw Performed By: #### 5 0608 ####[facility] [facility] [place] [place] [address], [facility] MCHC (RBC) [Mass/Vol] 31.1 g/dL Low 32.0-35.0 [facility] Comment on above: Order Comment: No: D o not add to previous draw Performed By: #### 5 0608 ####[facility] [place] [address], [facility] MCV (RBC) [Entitic vol] 91.6 fL Normal 82.0-98.0 [facility] Comment on above: Order Comment: No: D o not add to previous draw Performed By: #### 5 0608 ####[place] [address], [facility] Nucleated RBC/100 WBC (Bld) [Ratio] 0 % Normal 0-0 [facility] Comment on above: Order Comment: No: D o not add to previous draw Performed By: #### 5 0608 ####[place] [address], [facility] PLAT CNT 353 10*3/uL Normal 150-400 The [facility] Comment on above: Order Comment: No: D o not add to previous draw Performed By: #### 5 0608 ####[address] RBC (Bld) [#/Vol] 3.33 10*6/uL Low 4.20-5.70 The [facility] Comment on above: Order Comment: No: D o not add to previous draw Performed By: #### 5 0608 ####[place] [address], [facility] WBC (Bld) [#/Vol] 5.98 10*3/uL Normal 4.00-10.60 The [facility] Comment on above: Order Comment: No: D o not add to previous draw Performed By: #### 5 0608 ####[address] LACTATE BLOODon 05-16-2021 Lactate [Moles/Vol] 0.6 mmol/L Normal .5-2.2 [facility] Comment on above: Order Comment: No: D o not add to previous draw Performed By: #### 1 0054 ####[facility] [facility] [place] [place] [address], [facility] Lactate [Moles/Vol] 0.8 mmol/L Normal .5-2.2 [facility] Comment on above: Order Comment: No: D o not add to previous draw Performed By: #### 1 0054 ####[facility] [place] [address], [facility] MAGNESIUM BLOODon 05-16-2021 Magnesium [Mass/Vol] 1.9 mg/dL Normal 1.9-2.7 [facility] Comment on above: Order Comment: No: D o not add to previous draw Performed By: #### 4 1000, 71455, 57432 ####[facility] [facility] [place] [place] [address], [facility] OSMOLALITY BLOODon 1 Osmolality [Osmolality] 292 mosm/kg Normal 285-305 [facility] Comment on above: Order Comment: No: D o not add to previous draw Performed By: #### 3 9301, 74276 ####[facility] [facility] [place] [place] [address], [facility] Osmolality [Osmolality] 297 mosm/kg Normal 285-305 [facility] Comment on above: Order Comment: No: D o not add to previous draw Performed By: #### 3 9301, 38555 ####[facility] [facility] [place] [place] [address], [facility] PHOSPHORUS BLOODon 1 Phosphate [Mass/Vol] 4.3 mg/dL Normal 2.5-5.0 [facility] Comment on above: Order Comment: No: D o not add to previous draw Performed By: #### 4 1000, 52093, 16322 ####[facility] [place] [address], [facility] POC GLUCOSE LABon 05-16-2021 Glucose [Mass/Vol] 121 mg/dL High 70-[address] [facility] Comment on above: Performed By: #### 8 5499 ####[facility] [place] [address], [facility] Glucose [Mass/Vol] 126 mg/dL High 70-[address] [facility] Comment on above: Performed By: #### 8 5499 ####[facility] [facility].[place] [id number], [facility] Glucose [Mass/Vol] 133 mg/dL High 70-[address] [facility] Comment on above: Performed By: #### 8 5499 ####[facility] [place] [address], [facility] Glucose [Mass/Vol] 131 mg/dL High 70-[address] [facility] Comment on above: Performed By: #### 8 5499 ####[facility] PORTABLE CHEST 1 VIEWon 04-25 PORTABLE CHEST 1 VIEW Normal [facility] Comment on above: Order Comment: Check NG Tube Position PORTABLE CHEST 1 VIEW Normal [facility] Comment on above: Order Comment: Evalu ate Atelectasis PROTHROMBIN TIMEon INR Coag (PPP) [Relative time] 1.15 {INR} Normal 0.91-1.16 [facility] Comment on above: [...] OF ACTION, CLINICALEFFECTIVENESS, AND OPTIMAL THERAPEUTIC RANGE. [id number];108:231S-246S. Performed By: #### 5 7307, 70077 ####[facility] [facility].[address] PT Coag (PPP) [Time] 14.7 s Normal 12.3-14.8 [facility] Comment on above: Order Comment: No: D o not add to previous draw Result Comment: ALL RESULTS MUST BE INTERPRETED WITH RESPECT TO BLOOD DRAWING ARTIFACTOR DILUTION ERROR OF ANTICOAGULANT AT THE TIME OF SAMPLING. Performed By: #### 5 7307, 04157 ####[facility] [facility].[address] TRIGLYCERIDES BLOODon 2020 Triglyceride [Mass/Vol] 95 mg/dL Normal 40-149 [facility] Comment on above: Order Comment: No: D o not add to previous draw Result Comment: TRIG LYCERIDE REFERENCE RANGE:20 YEARS AND OLDER CARDIOVASCULAR RISKLESS THAN 150 mg/dl LOW [id number] TO 199 mg/dl BORDERLINE [id number] mg/dl AND GREATER HIGH RISK Performed By: #### 3 9301, 96738 ####[facility] [facility].[address] Triglyceride [Mass/Vol] 98 mg/dL Normal 40-149 [facility] Comment on above: Order Comment: No: D o not add to previous draw Result Comment: TRIG LYCERIDE REFERENCE RANGE:20 YEARS AND OLDER CARDIOVASCULAR RISKLESS THAN 150 mg/dl LOW [id number] TO 199 mg/dl BORDERLINE [id number] mg/dl AND GREATER HIGH RISK Performed By: #### 3 9301, 58373 ####[facility] *BLOOD CULTUREon 05-15-2021 *BLOOD CULTURE Clinical Report: (D) Specimen: BLOOD CULTURE Collected: 05/15/2021 11:35 Status: Final Last Updated: 05/20/2021 14:11 (1) Prior to antibiotic administration CULT RES (Final) No Growth Day 5 Normal [facility] Comment on above: Order Comment: Prior to antibiotic administration Performed By: #### 3 0313 ####[address] APTTon 05-15-2021 aPTT Coag (Bld) [Time] 30.4 s Normal 25.0-35.0 [facility] Comment on above: Result Comment: ALL RESULTS [...] THIS PURPOSE. Performed By: #### 5 7307, 16791 ####[address] ARTERIAL BLOOD GAS W/COOXon 05-15-2021 BASE EXCESS 2 mmol/L Normal -2-3 [facility] Comment on above: Order Comment: RESUL TS CHECKED AND CALLED. ACCURATELY READ BACK BY RADHIKA ED CHARGE. Performed By: #### 4 0055 ####[place] [id number] [address] COHB 2.3 % High 0.0-1.5 [facility] Comment on above: Order Comment: RESUL TS CHECKED AND CALLED. ACCURATELY READ BACK BY RADHIKA ED CHARGE. Performed By: #### 4 0055 ####[place] [id number] [address] [employer]IVERY SYSTEMS [place] Normal [facility] Comment on above: Order Comment: RESUL TS CHECKED AND CALLED. ACCURATELY READ BACK BY RADHIKA ED CHARGE. Performed By: #### 4 0055 ####[facility] [facility] [place] [address], [facility] HCO3 (Bld) [Moles/Vol] 29 mmol/L High 21-28 [facility] Comment on above: Order Comment: RESUL TS CHECKED AND CALLED. ACCURATELY READ BACK BY RADHIKA ED CHARGE. Performed By: #### 4 0055 ####[facility] [facility] [place] [address], [facility] LPM 5.0 LPM Normal [facility] Comment on above: Order Comment: RESUL TS CHECKED AND CALLED. ACCURATELY READ BACK BY RADHIKA ED CHARGE. Performed By: #### 4 5 ####[facility] [facility] [place] [address], [facility] METHB 1.1 % Normal 0.0-1.5 [facility] Comment on above: Order Comment: RESUL TS CHECKED AND CALLED. ACCURATELY READ BACK BY RADHIKA ED CHARGE. Performed By: #### 4 0055 ####[facility] [facility] [place] [address], [facility] MODALITY NC Normal [facility] Comment on above: Order Comment: RESUL TS CHECKED AND CALLED. ACCURATELY READ BACK BY RADHIKA ED CHARGE. Performed By: #### 4 0055 ####[facility] [facility].[address] Oxygen (Bld) [Partial pressure] 83 mm[Hg] Normal 83-108 [facility] Comment on above: Order Comment: RESUL TS CHECKED AND CALLED. ACCURATELY READ BACK BY RADHIKA ED CHARGE. Performed By: #### 4 0055 ####[facility] [facility].[address] Oxygen saturation in Blood 94.8 % Normal 94.0-97.0 [facility] Comment on above: Order Comment: RESUL TS CHECKED AND CALLED. ACCURATELY READ BACK BY RADHIKA ED CHARGE. Performed By: #### 4 0055 ####[facility] [facility] [place] [address], [facility] PCO2 58 mmHg Critically high 35-45 [facility] Comment on above: Order Comment: RESUL TS CHECKED AND CALLED. ACCURATELY READ BACK BY RADHIKA ED CHARGE. Performed By: #### 4 0055 ####[facility] [facility] [place] [address], [facility] pH (Bld) 7.31 [pH] Low 7.35-7.45 [facility] Comment on above: Order Comment: RESUL TS CHECKED AND CALLED. ACCURATELY READ BACK BY RADHIKA ED CHARGE. Performed By: #### 4 0055 ####[place] [id number] [facility].[address] THB 10.2 g/dL Low 12.0-16.3 [facility] Comment on above: Order Comment: RESUL TS CHECKED AND CALLED. ACCURATELY READ BACK BY RADHIKA ED CHARGE. Performed By: #### 4 0055 ####[facility] [facility].[address] BNP (B-TYPE NATRIURETIC PEPT MAX)on 05-15-2021 Natriuretic peptide B (d) [Mass/Vol] 136 pg/mL High 0-100 [facility] Comment on above: Order Comment: Yes: Add to Previous draw if able Result Comment: Give n the appropriate clinical setting a BNP result of >100 pg/mLindicates congestive heart failure. Performed By: #### 8 5123 ####[facility] [facility] [place] [address], [facility] CBC W/DIFFon 05-15-2021 ABS IMM GRANS 0.0 10*3/uL Normal 0.0-0.2 The [facility] Comment on above: Performed By: #### 5 0103 ####[facility] [facility] [place] [address], [facility] ABS NEUTROPHILS 5.0 10*3/uL Normal 1.6-7.6 The [facility] Comment on above: Performed By: #### 5 0103 ####[facility] [place] [address], [facility] Basophils (Bld) [#/Vol] 0.0 10*3/uL Normal 0.0-0.2 [facility] Comment on above: Performed By: #### 5 0103 ####[facility] [place] [address], [facility] Basophils/100 WBC (Bld) 0.6 % Normal 0.0-1.0 [facility] Comment on above: Performed By: #### 5 0103 ####[facility] [facility] [place] [address], [facility] Eosinophils (Bld) [#/Vol] 0.1 10*3/uL Normal 0.0-0.5 [facility] Comment on above: Performed By: #### 5 0103 ####[facility] [facility] [place] [address], [facility] Eosinophils/100 WBC (Bld) 0.7 % Normal 0.0-6.0 [facility] Comment on above: Performed By: #### 5 0103 ####[facility] [facility] [place] [address], [facility] Erythrocyte distribution width (RBC) [Ratio] 14.5 % Normal 11.5-15.0 [facility] Comment on above: Performed By: #### 5 3 ####[facility] [facility] [place] [address], [facility] Hematocrit (Bld) [Volume fraction] 32.5 % Low 39.0-50.0 [facility] Comment on above: Performed By: #### 5 3 ####[facility] [place] [address], [facility] Hemoglobin (Bld) [Mass/Vol] 10.3 g/dL Low 13.0-17.0 [facility] Comment on above: Performed By: #### 5 0103 ####[facility] IMMATURE GRANS 0.6 % Normal 0.0-1.0 The [facility] Comment on above: Performed By: #### 5 0103 ####[facility] Lymphocytes (Bld) [#/Vol] 1.1 10*3/uL Low 1.2-4.0 [facility] Comment on above: Performed By: #### 5 0103 ####[address] Lymphocytes/100 WBC (Bld) 15.9 % Low 20.0-45.0 [facility] Comment on above: Performed By: #### 5 0103 ####[facility] MCH (RBC) [Entitic mass] 28.8 pg Normal 27.0-33.0 [facility] Comment on above: Performed By: #### 5 0103 ####[place] [id number] [address] MCHC (RBC) [Mass/Vol] 31.7 g/dL Low 32.0-35.0 [facility] Comment on above: Performed By: #### 5 0103 ####[facility] [place] [address], [facility] MCV (RBC) [Entitic vol] 90.8 fL Normal 82.0-98.0 [facility] Comment on above: Performed By: #### 5 0103 ####[place] [address], [facility] Monocytes (Bld) [#/Vol] 0.8 10*3/uL Normal 0.1-1.0 [facility] Comment on above: Performed By: #### 5 0103 ####[facility] [facility] [place] [address], [facility] MONOS 11.2 % Normal 5.0-12.0 [facility] Comment on above: Performed By: #### 5 3 ####[facility] [facility] [place] [address], [facility] Neutrophils/100 WBC (Bld) 71.0 % Normal 40.0-72.0 [facility] Comment on above: Performed By: #### 5 102 ####[facility] [facility] [place] [place] [address], [facility] Nucleated RBC/100 WBC (Bld) [Ratio] 0 % Normal 0-0 [facility] Comment on above: Performed By: #### 5 102 ####[facility] [facility] [place] [address], [facility] PLAT CNT 376 10*3/uL Normal 150-400 The [facility] Comment on above: Performed By: #### 5 102 ####[facility] [place] [address].[place] [address], [facility] RBC (Bld) [#/Vol] 3.58 10*6/uL Low 4.20-5.70 The [facility] Comment on above: Performed By: #### 5 102 ####[facility] [facility] [place] [address], [facility] WBC (Bld) [#/Vol] 7.03 10*3/uL Normal 4.00-10.60 [facility] Comment on above: Performed By: #### 102 ####[facility] [place] [address].[place] [address], [facility] COMP METABOLIC PANELon 05-15 Albumin [Mass/Vol] 3.2 g/dL Low 3.5-5.[address] [facility] Comment on above: Performed By: #### 4 1000, 55762, 99436, 80949 ####[facility] [place] [address], [facility] ALKALINE PHOSPH 84 IU/L Normal 34-104 [facility] Comment on above: Performed By: #### 4 1000, 50736, 29747, 88883 ####[facility] [place] [address], [facility] ALT [Catalytic activity/Vol] 11 U/L Normal 7-52 [facility] Comment on above: Performed By: #### 4 1000, 63148, 04223, 32600 ####[facility] [place] [address], [facility] AST [Catalytic activity/Vol] 12 U/L Low 13-39 [facility] Comment on above: Performed By: #### 4 1000, 44373, 83611, 17025 ####[facility] [id number], [facility] Bilirubin [Mass/Vol] 0.9 mg/dL Normal 0.3-1.0 [facility] Comment on above: Performed By: #### 4 1000, 92136, 24532, 13387 ####[facility] [id number], [facility] Calcium [Mass/Vol] 8.3 mg/dL Low 8.6-10.3 [facility] Comment on above: Performed By: #### 4 1000, 18876, 65188, 67035 ####[facility] [id number], [facility] Chloride [Moles/Vol] 101 mmol/L Normal 98-107 [facility] Comment on above: Performed By: #### 4 1000, 59298, 27421, 53856 ####[facility] [place] [address], [place] CO2 [Moles/Vol] 30 mmol/L Normal 21-31 [facility] Comment on above: Performed By: #### 4 1000, 69580, 91405, 70932 ####[facility] [place] [address], [place] Creatinine [Mass/Vol] 0.92 mg/dL Normal 0.70-1.30 [facility] Comment on above: Performed By: #### 4 1000, 78919, 38008, 96112 ####[facility] [place] [address], [place] GFR/1.73 sq M.predicted among blacks MDRD (S/P/Bld) [Vol rate/Area] mL/min/{1.73_m2} Normal >60 [facility] Comment on above: Result Comment: Calc ulation may not be valid for patients over 70 years Performed By: #### 4 1000, 59943, 70976, 22302 ####[facility] [place] [address], [place] GFR/1.73 sq M.predicted among non-blacks MDRD (S/P/Bld) [Vol rate/Area] mL/min/{1.73_m2} Normal >60 [facility] Comment on above: Result Comment: Calc ulation may not be valid for patients over 70 years Performed By: #### 4 1000, 95230, 77958, 35161 ####[facility] [place] [address], [place] Glucose [Mass/Vol] 138 mg/dL High 70-100 [facility] Comment on above: Performed By: #### 4 1000, 38864, 88122, 80589 ####[facility] [place] [address], [place] Potassium [Moles/Vol] 4.1 mmol/L Normal 3.5-5.1 [facility] Comment on above: Performed By: #### 4 1000, 83556, 12270, 90130 ####[facility] [place] [address], [facility] Protein [Mass/Vol] 7.4 g/dL Normal 6.0-8.[address] [facility] Comment on above: Performed By: #### 4 1000, 28484, 61729, 03668 ####[facility] [place] [address], [facility] Sodium [Moles/Vol] 136 mmol/L Normal 136-[address] [facility] Comment on above: Performed By: #### 4 1000, 54527, 08279, 45643 ####[facility] [place] [address], [facility] Urea nitrogen [Mass/Vol] 8 mg/dL Normal 7-25 [facility] Comment on above: Performed By: #### 4 1000, 97826, 56781, 47415 ####[facility] [place] [address], [facility] LACTATE BLOODon 05-15-2021 Lactate [Moles/Vol] 0.7 mmol/L Normal .5-2.2 The [facility] Comment on above: Order Comment: Repea t Lactate in 4 hours Performed By: #### 1 0054 ####[facility] [place] [address], [place] MAGNESIUM BLOODon 05-15-2021 Magnesium [Mass/Vol] 2.0 mg/dL Normal 1.9-2.7 [facility] Comment on above: Performed By: #### 4 1000, 41167, 59570, 57204 ####[facility] [place] [address], [place] PHOSPHORUS BLOODon Phosphate [Mass/Vol] 6.0 mg/dL High 2.5-5.0 [facility] Comment on above: Performed By: #### 4 1000, 04662, 19873, 33471 ####[facility] [facility].[address] POC GLUCOSE LABon 05-15-2021 Glucose [Mass/Vol] 225 mg/dL High 70-100 [facility] Comment on above: Performed By: #### 8 5499 ####[facility] [facility].[address] POC SARS COV2 ANTIGEN NEGATI VEon 05-15-2021 POC SARS COV2 ANTIGEN NEG Negative Normal NEGATIVE The [facility] Comment on above: Result Comment: [...] of clinicalsigns and symptoms consistent with COVID-19.The AIT COVID-19 Ag Card is a lateral flow immunoassay intended forthe qualitative detection of nucleocapsid protein antigen [id number] in direct nasal swabs from individuals within [...] Certificate ofAccreditation. Performed By: #### 3 1977 ####[facility] [facility] [place] [address], [facility] PORTABLE CHEST 1 VIEWon 04-25 PORTABLE CHEST 1 VIEW Normal [facility] Comment on above: Order Comment: Evalu ate for Infiltrates, hypoxia, infected sternotomy site PROTHROMBIN TIMEon INR Coag (PPP) [Relative time] 1.07 {INR} Normal 0.91-1.16 [facility] Comment on above: Result Comment: ACCC P RECOMMENDED INR FOR WARFARIN THERAPY CONDITION INRPROPHYLAXIS OF VENOUS THROMBOSIS 2-3(HIGH-RISK SURGERY)TREATMENT OF VENOUS THROMBOSIS 2-3TREATMENT OF PULMONARY EMBOLISM 2-3PREVENTION OF SYSTEMIC EMBOLISM: 2-3 ACUTE MYOCARDIAL INFARCTION TISSUE HEART VALVES VALVULAR HEART DISEASE ATRIAL FIBRILLATION RECURRENT SYSTEMIC EMBOLISMMECHANICAL HEART VALVE 2.5-3.5 FROM: ORAL ANTICOAGULANTS. MECHANISM OF ACTION, CLINICALEFFECTIVENESS, AND OPTIMAL THERAPEUTIC RANGE. [id number]. Performed By: #### 5 7307, [id number] ####[facility] [place] [address], [facility] PT Coag (PPP) [Time] 13.9 s Normal 12.3-14.8 [facility] Comment on above: Result Comment: ALL RESULTS MUST BE INTERPRETED WITH RESPECT TO BLOOD DRAWING ARTIFACTOR DILUTION ERROR OF ANTICOAGULANT AT THE TIME OF SAMPLING. Performed By: #### 5 7307, 03005 ####[facility] [facility] [place] [address], [facility] TROPONIN-Ion 05-15-2021 Troponin I.cardiac [Mass/Vol] 0.01 ng/mL Normal 0.00-0.04 [facility] Comment on above: Result Comment: REFE RENCE RANGES: 0.00 - 0.04 ng/ml NORMAL 0.05 - 0.50 ng/ml INDETERMINATE > 0.50 ng/ml CONSISTENT WITH AN M.I. Performed By: #### 4 1000, 60625, 68140, 57063 ####[facility] [facility] [place] [address], [facility] TYPE AND SCREENon 05-15-2021 ABO INTERPRETATION O Normal [facility] Comment on above: Performed By: #### 6 2586 ####[facility] [facility] [place] [address], [facility] RH INTERPRETATION Positive Normal [facility] Comment on above: Performed By: #### 6 2586 ####[facility] [facility] [place] [address], [facility] POC GLUCOSE LABon 04-15-2021 Glucose [Mass/Vol] 143 mg/dL High 70-[address] [facility] Comment on above: Performed By: #### 8 [id number] ####[facility] [facility] [place] [address], [facility] Glucose [Mass/Vol] 241 mg/dL High 70-[address] [facility] Comment on above: Performed By: #### 8 5499 ####[facility] [facility] [place] [address], [facility] Glucose [Mass/Vol] 121 mg/dL High 70-[address] [facility] Comment on above: Performed By: #### 8 5499 ####[facility] [facility] [place] [address], [facility] POC SARS COV2 ANTIGEN NEGATI VEon 04-15-2021 POC SARS COV2 ANTIGEN NEG Negative Normal NEGATIVE [facility] Comment on above: Result Comment: [...] of clinicalsigns and symptoms consistent with COVID-19.The AIT COVID-19 Ag Card is a lateral flow immunoassay intended forthe qualitative detection of nucleocapsid protein antigen [id number] in direct nasal swabs from individuals within [...] Certificate ofAccreditation. Performed By: #### 3 1977 ####[place] [id number] [address] BASIC METABOLIC PANELon 08- Calcium [Mass/Vol] 8.7 mg/dL Normal 8.6-10.3 [facility] Comment on above: Order Comment: No: D o not add to previous draw Performed By: #### 0 0071, 35000 ####[place] [id number] [place] [address], [facility] Chloride [Moles/Vol] 95 mmol/L Low 98-107 [facility] Comment on above: Order Comment: No: D o not add to previous draw Performed By: #### 0 0071, 59043 ####[facility] [place] [address], [facility] CO2 [Moles/Vol] 27 mmol/L Normal 21-31 [facility] Comment on above: Order Comment: No: D o not add to previous draw Performed By: #### 0 0071, 40324 ####[place] [id number] [place] [address], [facility] Creatinine [Mass/Vol] 0.80 mg/dL Normal 0.70-1.30 [facility] Comment on above: Order Comment: No: D o not add to previous draw Performed By: #### 0 0071, 15859 ####[facility] [place] [address], [facility] GFR/1.73 sq M.predicted among blacks MDRD (S/P/Bld) [Vol rate/Area] mL/min/{1.73_m2} Normal >60 [facility] Comment on above: Order Comment: No: D o not add to previous draw Result Comment: Calc ulation may not be valid for patients over 70 years Performed By: #### 0 0071, 74216 ####[facility] [place] [address], [facility] GFR/1.73 sq M.predicted among non-blacks MDRD (S/P/Bld) [Vol rate/Area] mL/min/{1.73_m2} Normal >60 [facility] Comment on above: Order Comment: No: D o not add to previous draw Result Comment: Calc ulation may not be valid for patients over 70 years Performed By: #### 0 0071, 05800 ####[facility] [facility] [place] [address], [facility] Glucose [Mass/Vol] 108 mg/dL High 70-[address] [facility] Comment on above: Order Comment: No: D o not add to previous draw Performed By: #### 0 0071, 19188 ####[facility] [place] [address], [place] Potassium [Moles/Vol] 3.6 mmol/L Normal 3.5-5.1 [facility] Comment on above: Order Comment: No: D o not add to previous draw Performed By: #### 0 0071, 28652 ####[facility] [place] [address], [place] Sodium [Moles/Vol] 132 mmol/L Low 136-145 [facility] Comment on above: Order Comment: No: D o not add to previous draw Performed By: #### 0 0071, 93205 ####[facility] [facility] [place] [address], [facility] Urea nitrogen [Mass/Vol] 38 mg/dL High 7-25 [facility] Comment on above: Order Comment: No: D o not add to previous draw Performed By: #### 0 0071, 76682 ####[facility] [facility].[address] CBC COMPLETE BLOOD COUNTon 0 04-14-2021 Erythrocyte distribution width (RBC) [Ratio] 14.1 % Normal 11.5-15.0 [facility] Comment on above: Order Comment: No: D o not add to previous draw Performed By: #### 5 0608 ####[place] [id number] [facility].[address] Hematocrit (Bld) [Volume fraction] 33.5 % Low 39.0-50.0 [facility] Comment on above: Order Comment: No: D o not add to previous draw Performed By: #### 5 0608 ####[place] [id number] [facility].[address] Hemoglobin (Bld) [Mass/Vol] 11.3 g/dL Low 13.0-17.0 [facility] Comment on above: Order Comment: No: D o not add to previous draw Performed By: #### 5 0608 ####[facility] [facility] [place] [address], [facility] MCH (RBC) [Entitic mass] 30.2 pg Normal 27.0-33.0 [facility] Comment on above: Order Comment: No: D o not add to previous draw Performed By: #### 5 0608 ####[facility] [facility] [place] [address], [facility] MCHC (RBC) [Mass/Vol] 33.7 g/dL Normal 32.0-35.0 [facility] Comment on above: Order Comment: No: D o not add to previous draw Performed By: #### 5 0608 ####[facility] [facility] [place] [address], [facility] MCV (RBC) [Entitic vol] 89.6 fL Normal 82.0-98.0 [facility] Comment on above: Order Comment: No: D o not add to previous draw Performed By: #### 5 0608 ####[facility] [facility].[address] Nucleated RBC/100 WBC (Bld) [Ratio] 0 % Normal 0-0 [facility] Comment on above: Order Comment: No: D o not add to previous draw Performed By: #### 5 0608 ####[facility] [facility] [place] [address], [facility] PLAT CNT 314 10*3/uL Normal 150-400 The [facility] Comment on above: Order Comment: No: D o not add to previous draw Performed By: #### 5 0608 ####[place] [id number] [facility] [place] [address], [facility] RBC (Bld) [#/Vol] 3.74 10*6/uL Low 4.20-5.70 [facility] Comment on above: Order Comment: No: D o not add to previous draw Performed By: #### 5 0608 ####[facility] [facility] [place] [address], [facility] WBC (Bld) [#/Vol] 10.84 10*3/uL High 4.00-10.60 [facility] Comment on above: Order Comment: No: D o not add to previous draw Performed By: #### 5 0608 ####[facility] [facility] [place] [address], [place] MAGNESIUM BLOODon 04-14-2021 Magnesium [Mass/Vol] 1.9 mg/dL Normal 1.9-2.7 [facility] Comment on above: Order Comment: No: D o not add to previous draw Performed By: #### 0 0071, 45365 ####[facility] [place] [address], [place] POC GLUCOSE LABon 04-14-2021 Glucose [Mass/Vol] 168 mg/dL High 70-[address] [facility] Comment on above: Performed By: #### 8 5499 ####[facility] [place] [address], [place] Glucose [Mass/Vol] 133 mg/dL High 70-[address] [facility] Comment on above: Performed By: #### 8 5499 ####[facility] [place] [address], [place] Glucose [Mass/Vol] 167 mg/dL High 70-[address] [facility] Comment on above: Performed By: #### 8 5499 ####[facility] [place] [address], [place] Glucose [Mass/Vol] 146 mg/dL High 70-[address] [facility] Comment on above: Performed By: #### 8 5499 ####[facility] [place] [address], [place] Glucose [Mass/Vol] 152 mg/dL High 70-[address] [facility] Comment on above: Performed By: #### 8 5499 ####[facility] [place] [address], [place] PORTABLE CHEST 1 VIEWon 03-25 PORTABLE CHEST 1 VIEW Normal [facility] Comment on above: Order Comment: evalu ate Atelectasis BASIC METABOLIC PANELon 03-25 Calcium [Mass/Vol] 9.1 mg/dL Normal 8.6-10.3 [facility] Comment on above: Order Comment: No: D o not add to previous draw Performed By: #### 1 69, 52874 ####[facility] [place] [address], [facility] Chloride [Moles/Vol] 94 mmol/L Low 98-107 [facility] Comment on above: Order Comment: No: D o not add to previous draw Performed By: #### 1 0, 20622 ####[facility] [place] [address], [facility] CO2 [Moles/Vol] 27 mmol/L Normal 21-31 [facility] Comment on above: Order Comment: No: D o not add to previous draw Performed By: #### 1 69, 55939 ####[facility] [facility] [place] [address], [facility] Creatinine [Mass/Vol] 0.87 mg/dL Normal 0.70-1.30 [facility] Comment on above: Order Comment: No: D o not add to previous draw Performed By: #### 1 69, 82496 ####[facility] [facility] [place] [address], [facility] GFR/1.73 sq M.predicted among blacks MDRD (S/P/Bld) [Vol rate/Area] mL/min/{1.73_m2} Normal >60 [facility] Comment on above: Order Comment: No: D o not add to previous draw Result Comment: Calc ulation may not be valid for patients over 70 years Performed By: #### 1 69, 21776 ####[facility] [facility] [place] [address], [facility] GFR/1.73 sq M.predicted among non-blacks MDRD (S/P/Bld) [Vol rate/Area] mL/min/{1.73_m2} Normal >60 [facility] Comment on above: Order Comment: No: D o not add to previous draw Result Comment: Calc ulation may not be valid for patients over 70 years Performed By: #### 1 69, 23443 ####[facility] [facility] [place] [address], [facility] Glucose [Mass/Vol] 125 mg/dL High 70-[address] [facility] Comment on above: Order Comment: No: D o not add to previous draw Performed By: #### 1 69, 25838 ####[facility] [facility] [place] [address], [facility] Potassium [Moles/Vol] 3.2 mmol/L Low 3.5-5.1 [facility] Comment on above: Order Comment: No: D o not add to previous draw Performed By: #### 1 69, 43824 ####[facility] [facility] [place] [address], [facility] Sodium [Moles/Vol] 132 mmol/L Low 136-[address] [facility] Comment on above: Order Comment: No: D o not add to previous draw Performed By: #### 1 69, 22634 ####[facility] [facility] [place] [address], [facility] Urea nitrogen [Mass/Vol] 27 mg/dL High 7-25 [facility] Comment on above: Order Comment: No: D o not add to previous draw Performed By: #### 1 69, 86118 ####[facility] [facility].[address] CBC COMPLETE BLOOD COUNTon 0 8- Erythrocyte distribution width (RBC) [Ratio] 14.2 % Normal 11.5-15.0 [facility] Comment on above: Order Comment: No: D o not add to previous draw Performed By: #### 5 0608 ####[facility] [facility] [place] [address], [facility] Hematocrit (Bld) [Volume fraction] 35.2 % Low 39.0-50.0 [facility] Comment on above: Order Comment: No: D o not add to previous draw Performed By: #### 5 0608 ####[facility] [facility].[address] Hemoglobin (Bld) [Mass/Vol] 11.9 g/dL Low 13.0-17.0 [facility] Comment on above: Order Comment: No: D o not add to previous draw Performed By: #### 5 0608 ####[facility] [facility].[address] MCH (RBC) [Entitic mass] 30.6 pg Normal 27.0-33.0 [facility] Comment on above: Order Comment: No: D o not add to previous draw Performed By: #### 5 0608 ####[facility] [facility].[address] MCHC (RBC) [Mass/Vol] 33.8 g/dL Normal 32.0-35.0 [facility] Comment on above: Order Comment: No: D o not add to previous draw Performed By: #### 5 0608 ####[facility] [facility].[address] MCV (RBC) [Entitic vol] 90.5 fL Normal 82.0-98.0 [facility] Comment on above: Order Comment: No: D o not add to previous draw Performed By: #### 5 0608 ####[facility] [facility].[address] Nucleated RBC/100 WBC (Bld) [Ratio] 0 % Normal 0-0 [facility] Comment on above: Order Comment: No: D o not add to previous draw Performed By: #### 5 0608 ####[address] PLAT CNT 285 10*3/uL Normal 150-400 [facility] Comment on above: Order Comment: No: D o not add to previous draw Performed By: #### 5 0608 ####[facility] [id number], [facility] RBC (Bld) [#/Vol] 3.89 10*6/uL Low 4.20-5.70 The [facility] Comment on above: Order Comment: No: D o not add to previous draw Performed By: #### 5 0608 ####[facility] [place] [address], [place] WBC (Bld) [#/Vol] 9.92 10*3/uL Normal 4.00-10.60 [facility] Comment on above: Order Comment: No: D o not add to previous draw Performed By: #### 5 0608 ####[facility] [facility] [place] [address], [facility] MAGNESIUM BLOODon 04-13-2021 Magnesium [Mass/Vol] 1.9 mg/dL Normal 1.9-2.7 [facility] Comment on above: Order Comment: No: D o not add to previous draw Performed By: #### 1 0070, 09561 ####[facility] [facility] [place] [address], [facility] POC GLUCOSE LABon 04-13-2021 Glucose [Mass/Vol] 106 mg/dL High 70-[address] [facility] Comment on above: Performed By: #### 8 5499 ####[facility] [place] [address], [place] Glucose [Mass/Vol] 185 mg/dL High 70-[address] [facility] Comment on above: Performed By: #### 8 5499 ####[facility] [place] [address], [place] Glucose [Mass/Vol] 136 mg/dL High 70-[address] [facility] Comment on above: Performed By: #### 8 5499 ####[facility] [facility] [place] [address], [facility] PORTABLE CHEST 1 VIEWon 03-25 PORTABLE CHEST 1 VIEW Normal [facility] Comment on above: Order Comment: evalu ate for Atelectasis BASIC METABOLIC PANELon 03-25 Calcium [Mass/Vol] 8.3 mg/dL Low 8.6-10.[address] [facility] Comment on above: Order Comment: No: D o not add to previous draw Performed By: #### 1 0, 07558 ####[facility] [place] [address], [facility] Chloride [Moles/Vol] 102 mmol/L Normal 98-107 [facility] Comment on above: Order Comment: No: D o not add to previous draw Performed By: #### 1 0, 63436 ####[facility] [place] [address], [facility] CO2 [Moles/Vol] 25 mmol/L Normal 21-31 [facility] Comment on above: Order Comment: No: D o not add to previous draw Performed By: #### 1 0, 83359 ####[facility] [place] [address], [facility] Creatinine [Mass/Vol] 0.67 mg/dL Low 0.70-1.30 [facility] Comment on above: Order Comment: No: D o not add to previous draw Performed By: #### 1 0, 99333 ####[facility] [facility] [place] [address], [facility] GFR/1.73 sq M.predicted among blacks MDRD (S/P/Bld) [Vol rate/Area] mL/min/{1.73_m2} Normal >60 [facility] Comment on above: Order Comment: No: D o not add to previous draw Result Comment: Calc ulation may not be valid for patients over 70 years Performed By: #### 1 69, 00177 ####[facility] [place] [address], [facility] GFR/1.73 sq M.predicted among non-blacks MDRD (S/P/Bld) [Vol rate/Area] mL/min/{1.73_m2} Normal >60 [facility] Comment on above: Order Comment: No: D o not add to previous draw Result Comment: Calc ulation may not be valid for patients over 70 years Performed By: #### 1 69, 53011 ####[facility] [facility] [place] [address], [facility] Glucose [Mass/Vol] 116 mg/dL High 70-[address] [facility] Comment on above: Order Comment: No: D o not add to previous draw Performed By: #### 1 69, 33278 ####[facility] [place] [address], [place] Potassium [Moles/Vol] 4.0 mmol/L Normal 3.5-5.1 [facility] Comment on above: Order Comment: No: D o not add to previous draw Performed By: #### 1 69, 86339 ####[facility] [place] [address], [place] Sodium [Moles/Vol] 134 mmol/L Low 136-[address] [facility] Comment on above: Order Comment: No: D o not add to previous draw Performed By: #### 1 69, 76146 ####[facility] [place] [address], [place] Urea nitrogen [Mass/Vol] 22 mg/dL Normal 7-25 [facility] Comment on above: Order Comment: No: D o not add to previous draw Performed By: #### 1 69, 88676 ####[facility] CBC COMPLETE BLOOD COUNTon 0 04-12-2021 Erythrocyte distribution width (RBC) [Ratio] 14.6 % Normal 11.5-15.0 [facility] Comment on above: Order Comment: No: D o not add to previous draw Performed By: #### 5 0608 ####[address] Hematocrit (Bld) [Volume fraction] 33.1 % Low 39.0-50.0 [facility] Comment on above: Order Comment: No: D o not add to previous draw Performed By: #### 5 0608 ####[address] Hemoglobin (Bld) [Mass/Vol] 10.6 g/dL Low 13.0-17.0 [facility] Comment on above: Order Comment: No: D o not add to previous draw Performed By: #### 5 0608 ####[address] MCH (RBC) [Entitic mass] 30.0 pg Normal 27.0-33.0 [facility] Comment on above: Order Comment: No: D o not add to previous draw Performed By: #### 5 0608 ####[address] MCHC (RBC) [Mass/Vol] 32.0 g/dL Normal 32.0-35.0 [facility] Comment on above: Order Comment: No: D o not add to previous draw Performed By: #### 5 0608 ####[address] MCV (RBC) [Entitic vol] 93.8 fL Normal 82.0-98.0 [facility] Comment on above: Order Comment: No: D o not add to previous draw Performed By: #### 5 0608 ####[facility] [facility].[address] Nucleated RBC/100 WBC (Bld) [Ratio] 0 % Normal 0-0 [facility] Comment on above: Order Comment: No: D o not add to previous draw Performed By: #### 5 0608 ####[facility] [facility] [place] [address], [facility] PLAT CNT 213 10*3/uL Normal 150-400 The [facility] Comment on above: Order Comment: No: D o not add to previous draw Performed By: #### 5 0608 ####[address] [place] [address], [facility] RBC (Bld) [#/Vol] 3.53 10*6/uL Low 4.20-5.70 The [facility] Comment on above: Order Comment: No: D o not add to previous draw Performed By: #### 5 0608 ####[facility] [facility].[address] WBC (Bld) [#/Vol] 7.64 10*3/uL Normal 4.00-10.60 The [facility] Comment on above: Order Comment: No: D o not add to previous draw Performed By: #### 5 0608 ####[facility] [place] [address].[address] MAGNESIUM BLOODon 04-12-2021 Magnesium [Mass/Vol] 1.9 mg/dL Normal 1.9-2.7 The [facility] Comment on above: Order Comment: No: D o not add to previous draw Performed By: #### 1 0070, [id number] ####[facility] [place] [address].[address] POC GLUCOSE LABon 04-12-2021 Glucose [Mass/Vol] 126 mg/dL High 70-[address] [facility] Comment on above: Performed By: #### 8 5499 ####[facility] [facility] [place] [address], [facility] Glucose [Mass/Vol] 131 mg/dL High 70-[address] [facility] Comment on above: Performed By: #### 8 5499 ####[facility] [facility] [place] [address], [facility] Glucose [Mass/Vol] 167 mg/dL High 70-[address] [facility] Comment on above: Performed By: #### 8 5499 ####[facility] [facility] [place] [place] [address], [facility] POC SARS COV2 ANTIGEN NEGATI VEon 04-12-2021 POC SARS COV2 ANTIGEN NEG Negative Normal NEGATIVE The [facility] Comment on above: Result Comment: [...] forthe qualitative detection of nucleocapsid protein antigen hobbYLSD-[id number]-0 in direct nasal swabs from individuals within [...] Certificate ofAccreditation. Performed By: #### 3 1977 ####[facility] [place] [address], [facility] POC SARS COV2 ANTIGEN NEG Negative Normal NEGATIVE The [facility] Comment on above: Result Comment: [...] of clinicalsigns and symptoms consistent with COVID-19.The AIT COVID-19 Ag Card is a lateral flow immunoassay intended forthe qualitative detection of nucleocapsid protein antigen tyxyYPJF-EmB-0 in direct nasal swabs from individuals within [...] Certificate ofAccreditation. Performed By: #### 3 1977 ####[facility] [facility].[address] PORTABLE CHEST 1 VIEWon 03-25 PORTABLE CHEST 1 VIEW Normal The [facility] Comment on above: Order Comment: evalu ate for Atelectasis BASIC METABOLIC PANELon 03-24 Calcium [Mass/Vol] 7.9 mg/dL Low 8.6-10.3 [facility] Comment on above: Order Comment: No: D o not add to previous draw Performed By: #### 4 1000, 12134, 04006 ####[facility] [facility].[address] Chloride [Moles/Vol] 100 mmol/L Normal 98-107 [facility] Comment on above: Order Comment: No: D o not add to previous draw Performed By: #### 4 1000, 38765, 25046 ####[facility] [place] [address], [facility] CO2 [Moles/Vol] 27 mmol/L Normal 21-31 [facility] Comment on above: Order Comment: No: D o not add to previous draw Performed By: #### 4 1000, 74510, 14902 ####[facility] [place] [address], [facility] Creatinine [Mass/Vol] 0.80 mg/dL Normal 0.70-1.30 [facility] Comment on above: Order Comment: No: D o not add to previous draw Performed By: #### 4 1000, 38644, 98719 ####[facility] [place] [address], [facility] GFR/1.73 sq M.predicted among blacks MDRD (S/P/Bld) [Vol rate/Area] mL/min/{1.73_m2} Normal >60 [facility] Comment on above: Order Comment: No: D o not add to previous draw Result Comment: Calc ulation may not be valid for patients over 70 years Performed By: #### 4 1000, 56380, 08598 ####[facility] [facility] [place] [address], [facility] GFR/1.73 sq M.predicted among non-blacks MDRD (S/P/Bld) [Vol rate/Area] mL/min/{1.73_m2} Normal >60 [facility] Comment on above: Order Comment: No: D o not add to previous draw Result Comment: Calc ulation may not be valid for patients over 70 years Performed By: #### 4 1000, 40501, 73096 ####[facility] [place] [address], [place] Glucose [Mass/Vol] 135 mg/dL High 70-100 [facility] Comment on above: Order Comment: No: D o not add to previous draw Performed By: #### 4 1000, 76385, 14693 ####[facility] [place] [address], [facility] Potassium [Moles/Vol] 3.4 mmol/L Low 3.5-5.1 [facility] Comment on above: Order Comment: No: D o not add to previous draw Performed By: #### 4 1000, 82118, 99252 ####[facility] [place] [address], [facility] Sodium [Moles/Vol] 134 mmol/L Low 136-[address] [facility] Comment on above: Order Comment: No: D o not add to previous draw Performed By: #### 4 1000, 16198, 19699 ####[facility] [place] [address], [facility] Urea nitrogen [Mass/Vol] 21 mg/dL Normal 7-25 [facility] Comment on above: Order Comment: No: D o not add to previous draw Performed By: #### 4 999, 85815, 97767 ####[facility]3000 [facility].[address] CBC COMPLETE BLOOD COUNTon 0 - Erythrocyte distribution width (RBC) [Ratio] 15.0 % Normal 11.5-15.0 [facility] Comment on above: Order Comment: No: D o not add to previous drawNurse draw Performed By: #### 5 0608 ####[facility] [place] [address], [facility] Hematocrit (Bld) [Volume fraction] 32.0 % Low 39.0-50.0 [facility] Comment on above: Order Comment: No: D o not add to previous drawNurse draw Performed By: #### 5 0608 ####[place] [id number] [place] [address], [facility] Hemoglobin (Bld) [Mass/Vol] 10.6 g/dL Low 13.0-17.0 [facility] Comment on above: Order Comment: No: D o not add to previous drawNurse draw Performed By: #### 5 0608 ####[facility] [facility].[address] MCH (RBC) [Entitic mass] 30.5 pg Normal 27.0-33.0 [facility] Comment on above: Order Comment: No: D o not add to previous drawNurse draw Performed By: #### 5 0608 ####[facility] MCHC (RBC) [Mass/Vol] 33.1 g/dL Normal 32.0-35.0 [facility] Comment on above: Order Comment: No: D o not add to previous drawNurse draw Performed By: #### 5 0608 ####[address] MCV (RBC) [Entitic vol] 92.2 fL Normal 82.0-98.0 [facility] Comment on above: Order Comment: No: D o not add to previous drawNurse draw Performed By: #### 5 0608 ####[address] Nucleated RBC/100 WBC (Bld) [Ratio] 0 % Normal 0-0 [facility] Comment on above: Order Comment: No: D o not add to previous drawNurse draw Performed By: #### 5 0608 ####[facility] [place] [address] PLAT CNT 182 10*3/uL Normal 150-400 [facility] Comment on above: Order Comment: No: D o not add to previous drawNurse draw Performed By: #### 5 0608 ####[address] RBC (Bld) [#/Vol] 3.47 10*6/uL Low 4.20-5.70 [facility] Comment on above: Order Comment: No: D o not add to previous drawNurse draw Performed By: #### 5 0608 ####[facility] [place] [address], [facility] WBC (Bld) [#/Vol] 9.87 10*3/uL Normal 4.00-10.60 [facility] Comment on above: Order Comment: No: D o not add to previous drawNurse draw Performed By: #### 5 0608 ####[facility] [place] [address], [facility] MAGNESIUM BLOODon 04-11-2021 Magnesium [Mass/Vol] 2.1 mg/dL Normal 1.9-2.7 [facility] Comment on above: Order Comment: No: D o not add to previous draw Performed By: #### 4 1000, 92778, 17431 ####[facility] [place] [address], [place] PHOSPHORUS BLOODon Phosphate [Mass/Vol] 3.7 mg/dL Normal 2.5-5.0 [facility] Comment on above: Order Comment: No: D o not add to previous draw Performed By: #### 4 1000, 24197, 89120 ####[facility] [place] [address], [place] POC GLUCOSE LABon 04-11-2021 Glucose [Mass/Vol] 137 mg/dL High 70-[address] [facility] Comment on above: Performed By: #### 8 5499 ####[facility] [place] [address], [place] Glucose [Mass/Vol] 182 mg/dL High 70-[address] [facility] Comment on above: Performed By: #### 8 5049 ####[facility] [place] [address], [place] Glucose [Mass/Vol] 171 mg/dL High 70-[address] [facility] Comment on above: Performed By: #### 8 5499 ####[facility] [facility] [place] [address], [facility] Glucose [Mass/Vol] 142 mg/dL High 70-[address] [facility] Comment on above: Performed By: #### 8 5499 ####[facility] [facility] [place] [address], [facility] PORTABLE CHEST 1 VIEWon 03-24 PORTABLE CHEST 1 VIEW Normal [facility] Comment on above: Order Comment: Evalu ate for Pneumothorax PORTABLE CHEST 1 VIEW Normal [facility] Comment on above: Order Comment: evalu ate for Pneumothorax BASIC METABOLIC PANELon 03-24 Calcium [Mass/Vol] 8.2 mg/dL Low 8.6-10.[address] [facility] Comment on above: Order Comment: No: D o not add to previous drawNurse draw rn barbara Performed By: #### 4 999, 92982, 87110 ####[facility] [place] [address], [facility] Chloride [Moles/Vol] 104 mmol/L Normal 98-107 [facility] Comment on above: Order Comment: No: D o not add to previous drawNurse draw rn barbara Performed By: #### 4 999, 96013, 97732 ####[facility] [facility] [place] [address], [facility] CO2 [Moles/Vol] 27 mmol/L Normal 21-31 [facility] Comment on above: Order Comment: No: D o not add to previous drawNurse draw rn barbara Performed By: #### 4 999, 13938, 99727 ####[facility] [facility] [place] [address], [facility] Creatinine [Mass/Vol] 0.76 mg/dL Normal 0.70-1.30 [facility] Comment on above: Order Comment: No: D o not add to previous drawNurse draw rn barbara Performed By: #### 4 999, 84989, 49988 ####[facility] [place] [address], [facility] GFR/1.73 sq M.predicted among blacks MDRD (S/P/Bld) [Vol rate/Area] mL/min/{1.73_m2} Normal >60 [facility] Comment on above: Order Comment: No: D o not add to previous drawNurse draw rn barbara Result Comment: Calc ulation may not be valid for patients over 70 years Performed By: #### 4 999, 39266, 25599 ####[facility] [facility] [place] [address], [facility] GFR/1.73 sq M.predicted among non-blacks MDRD (S/P/Bld) [Vol rate/Area] mL/min/{1.73_m2} Normal >60 [facility] Comment on above: Order Comment: No: D o not add to previous drawNurse draw rn barbara Result Comment: Calc ulation may not be valid for patients over 70 years Performed By: #### 4 999, 67375, 49446 ####[facility] [facility] [place] [address], [facility] Glucose [Mass/Vol] 109 mg/dL High 70-[address] [facility] Comment on above: Order Comment: No: D o not add to previous drawNurse draw rn barbara Performed By: #### 4 999, 21036, 00863 ####[facility] [place] [address], [facility] Potassium [Moles/Vol] 4.0 mmol/L Normal 3.5-5.1 [facility] Comment on above: Order Comment: No: D o not add to previous drawNurse draw rn barbara Performed By: #### 4 999, 94805, 63177 ####[facility] Sodium [Moles/Vol] 135 mmol/L Low 136-[address] [facility] Comment on above: Order Comment: No: D o not add to previous drawNurse draw rn barbara Performed By: #### 4 1000, 81784, 01586 ####[facility] Urea nitrogen [Mass/Vol] 15 mg/dL Normal 7-25 [facility] Comment on above: Order Comment: No: D o not add to previous drawNurse draw rn barbara Performed By: #### 4 1000, 61282, 79435 ####[facility] CBC COMPLETE BLOOD COUNTon 0 04-10-2021 Erythrocyte distribution width (RBC) [Ratio] 14.7 % Normal 11.5-15.0 [facility] Comment on above: Order Comment: No: D o not add to previous drawNurse draw rn barbara Performed By: #### 5 0608 ####[facility] Hematocrit (Bld) [Volume fraction] 32.7 % Low 39.0-50.0 [facility] Comment on above: Order Comment: No: D o not add to previous drawNurse draw rn barbara Performed By: #### 5 0608 ####[facility] Hemoglobin (Bld) [Mass/Vol] 10.7 g/dL Low 13.0-17.0 [facility] Comment on above: Order Comment: No: D o not add to previous drawNurse draw rn barbara Performed By: #### 5 0608 ####[facility] [place] [address] MCH (RBC) [Entitic mass] 30.1 pg Normal 27.0-33.0 [facility] Comment on above: Order Comment: No: D o not add to previous drawNurse draw rn barbara Performed By: #### 5 0608 ####[facility] [facility].[address] MCHC (RBC) [Mass/Vol] 32.7 g/dL Normal 32.0-35.0 [facility] Comment on above: Order Comment: No: D o not add to previous drawNurse draw rn barbara Performed By: #### 5 0608 ####[facility] MCV (RBC) [Entitic vol] 92.1 fL Normal 82.0-98.0 [facility] Comment on above: Order Comment: No: D o not add to previous drawNurse draw rn barbara Performed By: #### 5 0608 ####[address] Nucleated RBC/100 WBC (Bld) [Ratio] 0 % Normal 0-0 [facility] Comment on above: Order Comment: No: D o not add to previous drawNurse draw rn barbara Performed By: #### 5 0608 ####[address] PLAT CNT 176 10*3/uL Normal 150-400 The [facility] Comment on above: Order Comment: No: D o not add to previous drawNurse draw rn barbara Performed By: #### 5 0608 ####[address] RBC (Bld) [#/Vol] 3.55 10*6/uL Low 4.20-5.70 [facility] Comment on above: Order Comment: No: D o not add to previous drawNurse draw rn barbara Performed By: #### 5 0608 ####[address] WBC (Bld) [#/Vol] 12.43 10*3/uL High 4.00-10.60 [facility] Comment on above: Order Comment: No: D o not add to previous drawNurse draw sumit jimenez Performed By: #### 5 0608 ####[facility] [place] [address], [facility] COOXIMETRYon 04-10-2021 COHB 1 % Normal [facility] Comment on above: Performed By: #### 7 0207 ####[facility] METHB 0 % Normal [facility] Comment on above: Performed By: #### 7 0207 ####[facility] Oxygen saturation in Blood 68.2 % Normal 65.0-75.0 [facility] Comment on above: Performed By: #### 7 0207 ####[facility] THB 13.1 g/dL Normal [facility] Comment on above: Performed By: #### 7 0207 ####[facility] LACTATE BLOODon 04-10-2021 Lactate [Moles/Vol] 0.7 mmol/L Normal .5-2.2 [facility] Comment on above: Order Comment: No: D o not add to previous drawNurse draw sumit jimenez Performed By: #### 1 0054 ####[facility] [place] [address], [facility] MAGNESIUM BLOODon 04-10-2021 Magnesium [Mass/Vol] 2.3 mg/dL Normal 1.9-2.7 [facility] Comment on above: Order Comment: No: D o not add to previous drawNurse draw sumit jimenez Performed By: #### 4 1000, 88837, 79750 ####[facility] [place] [address], [place] PHOSPHORUS BLOODon Phosphate [Mass/Vol] 3.9 mg/dL Normal 2.5-5.0 [facility] Comment on above: Order Comment: No: D o not add to previous drawNurse draw sumit jimenez Performed By: #### 4 1000, 63913, 42227 ####[facility] [place] [address], [place] POC GLUCOSE LABon 04-10-2021 Glucose [Mass/Vol] 168 mg/dL High 70-100 [facility] Comment on above: Performed By: #### 8 5499 ####[facility] [place] [address], [place] Glucose [Mass/Vol] 131 mg/dL High 70-100 [facility] Comment on above: Performed By: #### 8 5499 ####[facility] [place] [address], [place] Glucose [Mass/Vol] 123 mg/dL High 70-100 [facility] Comment on above: Performed By: #### 8 5499 ####[facility] [place] [place] [address], [place] Glucose [Mass/Vol] 170 mg/dL High 70-100 [facility] Comment on above: Performed By: #### 8 5499 ####[facility] [place] [address], [place] Glucose [Mass/Vol] 131 mg/dL High 70-100 [facility] Comment on above: Performed By: #### 8 5499 ####[facility] [place] [address], [place] Glucose [Mass/Vol] 123 mg/dL High 70-100 [facility] Comment on above: Performed By: #### 8 5499 ####[facility] [place] [address], [place] Glucose [Mass/Vol] 92 mg/dL Normal 70-[address] [facility] Comment on above: Performed By: #### 8 5499 ####[facility] [place] [address], [place] Glucose [Mass/Vol] 99 mg/dL Normal 70-[address] [facility] Comment on above: Performed By: #### 8 5499 ####[facility] [place] [address], [place] Glucose [Mass/Vol] 124 mg/dL High 70-[address] [facility] Comment on above: Performed By: #### 8 5499 ####[facility] [place] [address], [place] Glucose [Mass/Vol] 141 mg/dL High 70-[address] [facility] Comment on above: Performed By: #### 8 5499 ####[facility] [place] [address], [place] Glucose [Mass/Vol] 143 mg/dL High 70-[address] [facility] Comment on above: Performed By: #### 8 5499 ####[facility] [place] [address], [place] PORTABLE CHEST 1 VIEWon 03-24 PORTABLE CHEST 1 VIEW Normal The [facility] Comment on above: Order Comment: Check Chest Tube Position, s/p mediasteinal tube removal PORTABLE CHEST 1 VIEW Normal The [facility] Comment on above: Order Comment: evalu ate for Atelectasis APTTon 04-09-2021 aPTT Coag (Bld) [Time] 28.6 s Normal 25.0-35.0 [facility] Comment on above: [...] THIS PURPOSE. Performed By: #### 5 7307, 61612 ####[facility] ARTERIAL BLOOD GAS WITH ICAo n 04-09-2021 [employer] SYSTEM[employer] [place] Normal The [facility] Comment on above: Performed By: #### 8 4511 ####[facility] IONIZED CALCIUM 1.15 mmol/L Normal 1.13-1.32 The [facility] Comment on above: Performed By: #### 8 4511 ####[place] [id number] LPM 4.0 LPM Normal [facility] Comment on above: Performed By: #### 8 4511 ####[facility] [place] [address], [facility] Oxygen (Bld) [Partial pressure] 63 mm[Hg] Low 83-108 [facility] Comment on above: Performed By: #### 8 4511 ####[facility] Oxygen saturation in Blood 94.2 % Normal 94.0-97.0 [facility] [facility] Comment on above: Performed By: #### 8 4511 ####[facility] [place] [address], [facility] BASE EXCESS 3 mmol/L Normal -2-3 The [facility] Comment on above: Performed By: #### 8 4511 ####[facility] DELIVERY SYSTEMS MV Normal The [facility] Comment on above: Performed By: #### 8 4511 ####[facility] FIO2 40 % Normal [facility] Comment on above: Performed By: #### 8 4511 ####[facility] HCO3 (Bld) [Moles/Vol] 27 mmol/L Normal 21-28 The [facility] Comment on above: Performed By: #### 8 4511 ####[facility] IONIZED CALCIUM 1.17 mmol/L Normal 1.13-1.32 [facility] Comment on above: Performed By: #### 8 4511 ####[facility] [facility].[address] MIN VOLUME 14.0 Normal [facility] Comment on above: Performed By: #### 8 4511 ####[facility]3000 [facility] MODALITY SPONT Normal [facility] Comment on above: Performed By: #### 8 4511 ####[facility] [facility].[address] Oxygen (Bld) [Partial pressure] 79 mm[Hg] Low 83-108 [facility] Comment on above: Performed By: #### 8 4511 ####[facility] [place] [address], [facility] Oxygen saturation in Blood 96.5 % Normal 94.0-97.0 [facility] Comment on above: Performed By: #### 8 4511 ####[facility] [place] [address], [place] PCO2 37 mmHg Normal 35-45 [facility] Comment on above: Performed By: #### 8 4511 ####[facility] [place] [address], [facility] PEEP 5.0 CMH20 Normal [facility] Comment on above: Performed By: #### 8 4511 ####[facility] [place] [address], [facility] PF RATIO 198 mmHg Normal [facility] Comment on above: Performed By: #### 8 4511 ####[facility] [place] [address], [facility] pH (Bld) 7.47 [pH] High 7.35-7.45 [facility] Comment on above: Performed By: #### 8 4511 ####[facility] [place] [address], [facility] PRESSURE SUPPORT 5 Normal [facility] Comment on above: Performed By: #### 8 4511 ####[facility] [place] [address], [facility] BASE EXCESS 2 mmol/L Normal -2-3 [facility] Comment on above: Performed By: #### 8 4511 ####[facility] [place] [address], [facility] DELIVERY SYSTEMS MV Normal [facility] Comment on above: Performed By: #### 8 4511 ####[facility] [place] [address], [facility] FIO2 50 % Normal [facility] Comment on above: Performed By: #### 8 4511 ####[facility] [place] [address], [facility] HCO3 (Bld) [Moles/Vol] 26 mmol/L Normal 21-28 [facility] Comment on above: Performed By: #### 8 4511 ####[facility] [place] [address], [place] IONIZED CALCIUM 1.17 mmol/L Normal 1.13-1.32 [facility] Comment on above: Performed By: #### 8 4511 ####[facility] [place] [address], [place] MIN VOLUME 13.3 Normal [facility] Comment on above: Performed By: #### 8 4511 ####[facility] [place] [address], [place] MODALITY SIMV Normal [facility] Comment on above: Performed By: #### 8 4511 ####[facility] [place] [address], [place] Oxygen (Bld) [Partial pressure] 79 mm[Hg] Low 83-108 [facility] Comment on above: Performed By: #### 8 4511 ####[facility] [place] [address], [place] Oxygen saturation in Blood 96.8 % Normal 94.0-97.0 [facility] Comment on above: Performed By: #### 8 4511 ####[facility] [place] [address], [place] PCO2 36 mmHg Normal 35-45 [facility] Comment on above: Performed By: #### 8 4511 ####[facility] [place] [address], [place] PEEP 8.0 CMH20 Normal [facility] Comment on above: Performed By: #### 8 4511 ####[facility] [place] [address], [place] PF RATIO 158 mmHg Normal [facility] Comment on above: Performed By: #### 8 4511 ####[facility] pH (Bld) 7.46 [pH] High 7.35-7.45 [facility] Comment on above: Performed By: #### 8 4511 ####[facility] [facility].[address] PRESSURE SUPPORT 10 Normal [facility] Comment on above: Performed By: #### 8 4511 ####[facility] [facility].[address] Respiratory rate 18 /min Normal [facility] Comment on above: Performed By: #### 8 4511 ####[place] [id number] [facility].[address] TIDAL VOLUME ([place]) CC 700 Normal [facility] Comment on above: Performed By: #### 8 4511 ####[facility] [facility].[address] BASE EXCESS -4 mmol/L Low -2-3 [facility] Comment on above: Performed By: #### 8 4511 ####[facility] [facility].[address] DELIVERY SYSTEMS MV Normal [facility] Comment on above: Performed By: #### 8 4511 ####[facility] [facility].[address] FIO2 80 % Normal [facility] Comment on above: Performed By: #### 8 4511 ####[facility] [facility].[address] HCO3 (Bld) [Moles/Vol] 20 mmol/L Low 21-28 [facility] Comment on above: Performed By: #### 8 4511 ####[facility] [facility].[address] IONIZED CALCIUM 1.14 mmol/L Normal 1.13-1.32 [facility] Comment on above: Performed By: #### 8 4511 ####[facility] [place] [address], [facility] MIN VOLUME 13.5 Normal [facility] Comment on above: Performed By: #### 8 4511 ####[facility] [place] [address], [facility] MODALITY SIMV Normal [facility] Comment on above: Performed By: #### 8 4511 ####[facility] Oxygen (Bld) [Partial pressure] 121 mm[Hg] Critically high 83-108 [facility] Comment on above: Performed By: #### 8 4511 ####[facility] Oxygen saturation in Blood 97.1 % High 94.0-97.0 [facility] Comment on above: Performed By: #### 8 4511 ####[facility] [facility] [place] [address], [facility] PCO2 34 mmHg Low 35-45 [facility] Comment on above: Performed By: #### 8 4511 ####[facility] [place] [address], [facility] PEEP 8.0 CMH20 Normal [facility] Comment on above: Performed By: #### 8 4511 ####[facility] [place] [address], [facility] pH (Bld) 7.38 [pH] Normal 7.35-7.45 [facility] Comment on above: Performed By: #### 8 4511 ####[facility] [place] [address], [facility] PRESSURE SUPPORT 10 Normal [facility] Comment on above: Performed By: #### 8 4511 ####[facility] [place] [address], [facility] Respiratory rate 18 /min Normal [facility] Comment on above: Performed By: #### 8 4511 ####[facility] [place] [address], [facility] TIDAL VOLUME ([place]) CC 700 Normal [facility] Comment on above: Performed By: #### 8 4511 ####[facility] [place] [address], [facility] BASE EXCESS -8 mmol/L Low -2-3 [facility] Comment on above: Performed By: #### 8 4511 ####[facility] DELIVERY SYSTEMS MV Normal [facility] Comment on above: Performed By: #### 8 4511 ####[facility] [place] [address], [facility] FIO2 80 % Normal [facility] Comment on above: Performed By: #### 8 4511 ####[facility] [place] [address], [facility] HCO3 (Bld) [Moles/Vol] 18 mmol/L Low 21-28 [facility] Comment on above: Performed By: #### 8 4511 ####[facility] [place] [address], [facility] IONIZED CALCIUM 1.06 mmol/L Low 1.13-1.32 [facility] Comment on above: Performed By: #### 8 4511 ####[facility] [place] [address], [facility] MIN VOLUME 16.6 Normal [facility] Comment on above: Performed By: #### 8 4511 ####[facility] [place] [address], [place] MODALITY SIMV Normal [facility] Comment on above: Performed By: #### 8 4511 ####[facility] [place] [address], [place] Oxygen (Bld) [Partial pressure] 86 mm[Hg] Normal 83-108 [facility] Comment on above: Performed By: #### 8 4511 ####[facility] [place] [address], [place] Oxygen saturation in Blood 96.6 % Normal 94.0-97.0 [facility] Comment on above: Performed By: #### 8 4511 ####[facility] [place] [address], [place] PCO2 34 mmHg Low 35-45 [facility] Comment on above: Performed By: #### 8 4511 ####[facility] [place] [address], [place] PEEP 8.0 CMH20 Normal [facility] Comment on above: Performed By: #### 8 4511 ####[facility] [place] [address], [place] PF RATIO 108 mmHg Normal [facility] Comment on above: Performed By: #### 8 4511 ####[facility] [place] [address], [place] pH (Bld) 7.32 [pH] Low 7.35-7.45 [facility] Comment on above: Performed By: #### 8 4511 ####[facility] [place] [address], [place] PRESSURE SUPPORT 10 Normal [facility] Comment on above: Performed By: #### 8 4511 ####[facility] [place] [address], [facility] Respiratory rate 18 /min Normal [facility] Comment on above: Performed By: #### 8 4511 ####[facility] [place] [address], [place] TIDAL VOLUME ([place]) CC 700 Normal [facility] Comment on above: Performed By: #### 8 4511 ####[facility] [place] [address], [facility] BASIC METABOLIC PANELon - Calcium [Mass/Vol] 8.0 mg/dL Low 8.6-10.[address] [facility] Comment on above: Order Comment: No: D o not add to previous draw Performed By: #### 0 0071, 40468 ####[facility] [place] [address], [facility] Chloride [Moles/Vol] 107 mmol/L Normal 98-107 [facility] Comment on above: Order Comment: No: D o not add to previous draw Performed By: #### 0 0071, 35616 ####[facility] [place] [address], [place] CO2 [Moles/Vol] 26 mmol/L Normal 21-31 [facility] Comment on above: Order Comment: No: D o not add to previous draw Performed By: #### 0 0071, 70999 ####[facility] [place] [address], [place] Creatinine [Mass/Vol] 0.90 mg/dL Normal 0.70-1.30 [facility] Comment on above: Order Comment: No: D o not add to previous draw Performed By: #### 0 0071, 49334 ####[facility] [place] [address], [place] GFR/1.73 sq M.predicted among blacks MDRD (S/P/Bld) [Vol rate/Area] mL/min/{1.73_m2} Normal >60 [facility] Comment on above: Order Comment: No: D o not add to previous draw Result Comment: Calc ulation may not be valid for patients over 70 years Performed By: #### 0 0071, 35224 ####[facility] [place] [address], [place] GFR/1.73 sq M.predicted among non-blacks MDRD (S/P/Bld) [Vol rate/Area] mL/min/{1.73_m2} Normal >60 [facility] Comment on above: Order Comment: No: D o not add to previous draw Result Comment: Calc ulation may not be valid for patients over 70 years Performed By: #### 0 0071, 92327 ####[facility] [place] [address], [place] Glucose [Mass/Vol] 126 mg/dL High 70-[address] [facility] Comment on above: Order Comment: No: D o not add to previous draw Performed By: #### 0 0071, 32993 ####[facility] [place] [address], [place] Potassium [Moles/Vol] 3.8 mmol/L Normal 3.5-5.1 [facility] Comment on above: Order Comment: No: D o not add to previous draw Performed By: #### 0 0071, 92181 ####[facility] [place] [address], [place] Sodium [Moles/Vol] 136 mmol/L Normal 136-[address] [facility] Comment on above: Order Comment: No: D o not add to previous draw Performed By: #### 0 0071, 16652 ####[facility] [place] [address], [place] Urea nitrogen [Mass/Vol] 21 mg/dL Normal 7-25 [facility] Comment on above: Order Comment: No: D o not add to previous draw Performed By: #### 0 0071, 39310 ####[facility] [place] [address], [facility] Calcium [Mass/Vol] 7.8 mg/dL Low 8.6-10.3 [facility] Comment on above: Order Comment: post op day 1No: Do not add to previous draw Performed By: #### 1 69, 90188 ####[facility] [place] [address], [place] Chloride [Moles/Vol] 103 mmol/L Normal 98-107 [facility] Comment on above: Order Comment: post op day 1No: Do not add to previous draw Performed By: #### 1 69, 28882 ####[facility] [id number], [place] CO2 [Moles/Vol] 20 mmol/L Low 21-31 [facility] Comment on above: Order Comment: post op day 1No: Do not add to previous draw Performed By: #### 1 69, 30822 ####[facility] [place] [address], [place] Creatinine [Mass/Vol] 1.25 mg/dL Normal 0.70-1.30 [facility] Comment on above: Order Comment: post op day 1No: Do not add to previous draw Performed By: #### 1 69, 26573 ####[facility] [place] [address], [place] eGFR- non- 56 ml/min/1.73sq m Abnormal >60 [facility] Comment on above: Order Comment: post op day 1No: Do not add to previous draw Result Comment: Calc ulation may not be valid for patients over 70 years Performed By: #### 1 69, 95490 ####[facility] [place] [address], [facility] GFR/1.73 sq M.predicted among blacks MDRD (S/P/Bld) [Vol rate/Area] mL/min/{1.73_m2} Normal >60 [facility] Comment on above: Order Comment: post op day 1No: Do not add to previous draw Result Comment: Calc ulation may not be valid for patients over 70 years Performed By: #### 1 69, 05019 ####[facility] [facility] [place] [address], [facility] Glucose [Mass/Vol] 331 mg/dL High 70-[address] [facility] Comment on above: Order Comment: post op day 1No: Do not add to previous draw Performed By: #### 1 69, 96707 ####[place] [id number] [facility] [place] [address], [facility] Potassium [Moles/Vol] 3.2 mmol/L Low 3.5-5.1 [facility] Comment on above: Order Comment: post op day 1No: Do not add to previous draw Performed By: #### 1 69, 96837 ####[place] [id number] [facility] [place] [address], [facility] Sodium [Moles/Vol] 135 mmol/L Low 136-[address] [facility] Comment on above: Order Comment: post op day 1No: Do not add to previous draw Performed By: #### 1 69, 32381 ####[facility] [facility] [place] [address], [facility] Urea nitrogen [Mass/Vol] 24 mg/dL Normal 7-25 [facility] Comment on above: Order Comment: post op day 1No: Do not add to previous draw Performed By: #### 1 69, 53170 ####[facility] [facility] [place] [address], [place] CBC COMPLETE BLOOD COUNTon 0 - Erythrocyte distribution width (RBC) [Ratio] 14.6 % Normal 11.5-15.0 [facility] Comment on above: Order Comment: post op day 1No: Do not add to previous draw Performed By: #### 5 0608 ####[facility] [facility].[address] Hematocrit (Bld) [Volume fraction] 30.5 % Low 39.0-50.0 [facility] Comment on above: Order Comment: post op day 1No: Do not add to previous draw Performed By: #### 5 0608 ####[facility] [facility].[address] Hemoglobin (Bld) [Mass/Vol] 10.2 g/dL Low 13.0-17.0 [facility] Comment on above: Order Comment: post op day 1No: Do not add to previous draw Performed By: #### 5 0608 ####[facility] [facility].[address] MCH (RBC) [Entitic mass] 30.9 pg Normal 27.0-33.0 [facility] Comment on above: Order Comment: post op day 1No: Do not add to previous draw Performed By: #### 5 0608 ####[facility] [facility].[address] MCHC (RBC) [Mass/Vol] 33.4 g/dL Normal 32.0-35.0 [facility] Comment on above: Order Comment: post op day 1No: Do not add to previous draw Performed By: #### 5 0608 ####[facility] [facility] [place] [address], [facility] MCV (RBC) [Entitic vol] 92.4 fL Normal 82.0-98.0 [facility] Comment on above: Order Comment: post op day 1No: Do not add to previous draw Performed By: #### 5 0608 ####[facility] Nucleated RBC/100 WBC (Bld) [Ratio] 0 % Normal 0-0 [facility] Comment on above: Order Comment: post op day 1No: Do not add to previous draw Performed By: #### 5 0608 ####[facility] [place] [address], [facility] PLAT CNT 232 10*3/uL Normal 150-400 [facility] Comment on above: Order Comment: post op day 1No: Do not add to previous draw Performed By: #### 5 0608 ####[place] [address], [facility] RBC (Bld) [#/Vol] 3.30 10*6/uL Low 4.20-5.70 The [facility] Comment on above: Order Comment: post op day 1No: Do not add to previous draw Performed By: #### 5 0608 ####[facility] [place] [address], [facility] WBC (Bld) [#/Vol] 17.37 10*3/uL High 4.00-10.60 [facility] Comment on above: Order Comment: post op day 1No: Do not add to previous draw Performed By: #### 5 0608 ####[place] [address], [facility] CBC W/DIFFon 04-09-2021 ABS IMM GRANS 0.1 10*3/uL Normal 0.0-0.2 The [facility] Comment on above: Order Comment: No: D o not add to previous draw Performed By: #### 5 0103 ####[facility] [place] [address], [facility] ABS NEUTROPHILS 8.3 10*3/uL High 1.6-7.6 [facility] Comment on above: Order Comment: No: D o not add to previous draw Performed By: #### 5 0103 ####[facility] [facility] [place] [address], [facility] Basophils (Bld) [#/Vol] 0.0 10*3/uL Normal 0.0-0.2 [facility] Comment on above: Order Comment: No: D o not add to previous draw Performed By: #### 5 0103 ####[facility] [place] [address], [facility] [facility] Basophils/100 WBC (Bld) 0.1 % Normal 0.0-1.0 [facility] Comment on above: Order Comment: No: D o not add to previous draw Performed By: #### 5 0103 ####[facility] [place] [address], [facility] Eosinophils (Bld) [#/Vol] 0.0 10*3/uL Normal 0.0-0.5 [facility] Comment on above: Order Comment: No: D o not add to previous draw Performed By: #### 5 0103 ####[facility] [place] [address], [facility] Eosinophils/100 WBC (Bld) 0.0 % Normal 0.0-6.0 [facility] Comment on above: Order Comment: No: D o not add to previous draw Performed By: #### 5 0103 ####[facility] Erythrocyte distribution width (RBC) [Ratio] 14.4 % Normal 11.5-15.0 [facility] Comment on above: Order Comment: No: D o not add to previous draw Performed By: #### 5 0103 ####[facility] Hematocrit (Bld) [Volume fraction] 28.9 % Low 39.0-50.0 [facility] Comment on above: Order Comment: No: D o not add to previous draw Performed By: #### 5 0103 ####[facility] Hemoglobin (Bld) [Mass/Vol] 9.6 g/dL Low 13.0-17.0 [facility] Comment on above: Order Comment: No: D o not add to previous draw Performed By: #### 5 0103 ####[facility] IMMATURE GRANS 0.5 % Normal 0.0-1.0 The [facility] Comment on above: Order Comment: No: D o not add to previous draw Performed By: #### 5 0103 ####[facility] Lymphocytes (Bld) [#/Vol] 1.3 10*3/uL Normal 1.2-4.0 [facility] Comment on above: Order Comment: No: D o not add to previous draw Performed By: #### 5 0103 ####[place] [id number] [address] Lymphocytes/100 WBC (Bld) 12.1 % Low 20.0-45.0 [facility] Comment on above: Order Comment: No: D o not add to previous draw Performed By: #### 5 0103 ####[facility] MCH (RBC) [Entitic mass] 30.6 pg Normal 27.0-33.0 [facility] Comment on above: Order Comment: No: D o not add to previous draw Performed By: #### 5 0103 ####[facility] [place] [address] MCHC (RBC) [Mass/Vol] 33.2 g/dL Normal 32.0-35.0 [facility] Comment on above: Order Comment: No: D o not add to previous draw Performed By: #### 5 3 ####[facility] [place] [address], [facility] MCV (RBC) [Entitic vol] 92.0 fL Normal 82.0-98.0 [facility] Comment on above: Order Comment: No: D o not add to previous draw Performed By: #### 5 3 ####[facility] [place] [address], [facility] Monocytes (Bld) [#/Vol] 1.2 10*3/uL High 0.1-1.0 [facility] Comment on above: Order Comment: No: D o not add to previous draw Performed By: #### 5 3 ####[facility] MONOS 10.9 % Normal 5.0-12.0 [facility] Comment on above: Order Comment: No: D o not add to previous draw Performed By: #### 5 102 ####[facility] [place] [address], [facility] Neutrophils/100 WBC (Bld) 76.4 % High 40.0-72.0 [facility] Comment on above: Order Comment: No: D o not add to previous draw Performed By: #### 5 3 ####[facility] Nucleated RBC/100 WBC (Bld) [Ratio] 0 % Normal 0-0 [facility] Comment on above: Order Comment: No: D o not add to previous draw Performed By: #### 5 3 ####[facility] [place] [address], [facility] PLAT CNT 175 10*3/uL Normal 150-400 [facility] Comment on above: Order Comment: No: D o not add to previous draw Performed By: #### 5 0103 ####[facility] [id number], [facility] RBC (Bld) [#/Vol] 3.14 10*6/uL Low 4.20-5.70 The [facility] Comment on above: Order Comment: No: D o not add to previous draw Performed By: #### 5 0103 ####[facility] [place] [address], [place] WBC (Bld) [#/Vol] 10.92 10*3/uL High 4.00-10.60 [facility] Comment on above: Order Comment: No: D o not add to previous draw Performed By: #### 5 3 ####[facility] [place] [address], [facility] LACTATE BLOODon 04-09-2021 Lactate [Moles/Vol] 0.9 mmol/L Normal .5-2.2 [facility] Comment on above: Order Comment: No: D o not add to previous draw Performed By: #### 1 0054 ####[facility] [place] [address], [facility] Lactate [Moles/Vol] 3.8 mmol/L High .5-2.2 [facility] Comment on above: Order Comment: No: D o not add to previous draw Result Comment: M-CR ITICAL RESULT(S) REVIEWED, CALLED TO AND READ BACK BY [employer] DRIVER 0855 Performed By: #### 1 0054 ####[facility] [place] [address], [place] Lactate [Moles/Vol] 7.1 mmol/L Critically high .5-2.2 [facility] Comment on above: Order Comment: post op day 1No: Do not add to previous draw Result Comment: M-MD EVIOUS CRITICAL RESULT Performed By: #### 1 0054 ####[facility] [place] [address], [facility] MAGNESIUM BLOODon 04-09-2021 Magnesium [Mass/Vol] 2.3 mg/dL Normal 1.9-2.7 [facility] Comment on above: Order Comment: No: D o not add to previous draw Performed By: #### 1 0070, 45530 ####[facility] [place] [address], [place] Magnesium [Mass/Vol] 2.2 mg/dL Normal 1.9-2.7 [facility] Comment on above: Order Comment: added from prior Performed By: #### 0 0071, [id number] ####[facility] [place] [address], [facility] Magnesium [Mass/Vol] 2.4 mg/dL Normal 1.9-2.7 [facility] Comment on above: Order Comment: post op day 1No: Do not add to previous draw Performed By: #### 1 0070, 97921 ####[facility] [facility] [place] [address], [facility] Operative Reporton Operative Report Normal [facility] POC GLUCOSE LABon 04-09-2021 Glucose [Mass/Vol] 162 mg/dL High 70-[address] [facility] Comment on above: Performed By: #### 8 5499 ####[facility] [place] [address], [facility] Glucose [Mass/Vol] 128 mg/dL High 70-[address] [facility] Comment on above: Performed By: #### 8 5499 ####[facility] [place] [address], [place] Glucose [Mass/Vol] 117 mg/dL High 70-[address] [facility] Comment on above: Performed By: #### 8 5499 ####[facility] [place] [address], [place] Glucose [Mass/Vol] 110 mg/dL High 70-100 [facility] Comment on above: Performed By: #### 8 5499 ####[facility] [place] [address], [place] Glucose [Mass/Vol] 65 mg/dL Low 70-100 [facility] Comment on above: Performed By: #### 8 5499 ####[facility] [place] [address], [place] Glucose [Mass/Vol] 86 mg/dL Normal 70-100 [facility] Comment on above: Performed By: #### 8 5499 ####[facility] [place] [address], [place] Glucose [Mass/Vol] 127 mg/dL High 70-100 [facility] Comment on above: Performed By: #### 8 5499 ####[facility] [place] [address], [place] Glucose [Mass/Vol] 230 mg/dL High 70-100 [facility] Comment on above: Performed By: #### 8 5499 ####[facility] [place] [address], [place] Glucose [Mass/Vol] 244 mg/dL High 70-100 [facility] Comment on above: Performed By: #### 8 5499 ####[facility] [place] [address], [place] Glucose [Mass/Vol] 283 mg/dL High 70-100 [facility] Comment on above: Performed By: #### 8 5499 ####[facility] [place] [address], [place] Glucose [Mass/Vol] 326 mg/dL High 70-100 [facility] Comment on above: Performed By: #### 8 5499 ####[facility] [place] [address], [place] Glucose [Mass/Vol] 347 mg/dL High 70-100 [facility] Comment on above: Performed By: #### 8 5499 ####[facility] [place] [address], [place] Glucose [Mass/Vol] 258 mg/dL High 70-100 [facility] Comment on above: Performed By: #### 8 5499 ####[facility] [place] [address], [place] Glucose [Mass/Vol] 334 mg/dL High 70-[address] [facility] Comment on above: Performed By: #### 8 5499 ####[facility] [place] [address], [place] Glucose [Mass/Vol] 338 mg/dL High 70-[address] [facility] Comment on above: Performed By: #### 8 5499 ####[facility] [place] [address], [place] Glucose [Mass/Vol] 321 mg/dL High 70-[address] [facility] Comment on above: Performed By: #### 8 5499 ####[facility] [place] [address], [place] Glucose [Mass/Vol] 302 mg/dL High 70-[address] [facility] Comment on above: Performed By: #### 8 5499 ####[facility] [place] [address], [place] PORTABLE CHEST 1 VIEWon 03-24 PORTABLE CHEST 1 VIEW Normal [facility] Comment on above: Order Comment: Check Chest Tube Position POTASSIUM BLOODon 04-09-2021 Potassium [Moles/Vol] 4.6 mmol/L Normal 3.5-5.1 [facility] Comment on above: Order Comment: No: D o not add to previous draw Performed By: #### 1 0070, 60396 ####[facility] [facility].[address] PROTHROMBIN TIMEon 1 INR Coag (PPP) [Relative time] 1.22 {INR} High 0.91-1.16 [facility] Comment on above: [...] OF ACTION, CLINICALEFFECTIVENESS, AND OPTIMAL THERAPEUTIC RANGE. [id number]. Performed By: #### 5 7307, 29204 ####[facility] [facility] [place] [address], [facility] PT Coag (PPP) [Time] 15.4 s High 12.3-14.8 [facility] Comment on above: Order Comment: post op day 1No: Do not add to previous draw Result Comment: ALL RESULTS MUST BE INTERPRETED WITH RESPECT TO BLOOD DRAWING ARTIFACTOR DILUTION ERROR OF ANTICOAGULANT AT THE TIME OF SAMPLING. Performed By: #### 5 7307, 18847 ####[facility] [place] [address], [facility] ACTIVATED CLOTTING TIMEon ACTIVATED CLOTTING TIME 121 sec Normal 82-152 [facility] Comment on above: Performed By: #### 3 0739 ####[facility] [place] [address], [place] ACTIVATED CLOTTING TIME 305 sec High 82-152 [facility] Comment on above: Performed By: #### 3 0739 ####[facility] [place] [address], [place] ACTIVATED CLOTTING TIME 286 sec High 82-152 [facility] Comment on above: Performed By: #### 3 0739 ####[facility] [place] [address], [place] ACTIVATED CLOTTING TIME 279 sec High 82-152 [facility] Comment on above: Performed By: #### 3 0739 ####[facility] [place] [address], [place] ACTIVATED CLOTTING TIME 325 sec High 82-152 [facility] Comment on above: Performed By: #### 3 0739 ####[facility] [place] [address], [place] ACTIVATED CLOTTING TIME 184 sec High 82-152 [facility] Comment on above: Performed By: #### 3 0739 ####[facility] [place] [address], [place] ACTIVATED CLOTTING TIME 121 sec Normal 82-152 [facility] Comment on above: Performed By: #### 3 0739 ####[facility] [place] [address], [place] APTTon 04-08-2021 aPTT Coag (Bld) [Time] 30.4 s Normal 25.0-35.0 [facility] Comment on above: [...] THIS PURPOSE. Performed By: #### 5 6101, 61556 ####[facility] aPTT Coag (Bld) [Time] 30.6 s Normal 25.0-35.0 [facility] Comment on above: Result Comment: ALL RESULTS [...] THIS PURPOSE. Performed By: #### 5 7307, 49328, 51327 ####[facility] ARTERIAL BLOOD GAS WITH ICAo n 04-08-2021 BASE EXCESS -4 mmol/L Low -2-3 [facility] Comment on above: Order Comment: on ar rival to CVU Performed By: #### 8 4511 ####[facility] [place] [address], [facility] DEL[employer]ERY SYSTEM[employer] MV Normal [facility] Comment on above: Order Comment: on ar rival to CVU Performed By: #### 8 4511 ####[facility] [place] [address], [facility] FIO2 70 % Normal [facility] Comment on above: Order Comment: on ar rival to CVU Performed By: #### 8 4511 ####[facility] [place] [address], [facility] HCO3 (Bld) [Moles/Vol] 21 mmol/L Normal 21-28 [facility] Comment on above: Order Comment: on ar rival to CVU Performed By: #### 8 4511 ####[facility] [place] [address], [place] IONIZED CALCIUM 1.09 mmol/L Low 1.13-1.32 [facility] Comment on above: Order Comment: on ar rival to CVU Performed By: #### 8 4511 ####[facility] [place] [address], [facility] MIN VOLUME 14.2 Normal [facility] Comment on above: Order Comment: on ar rival to CVU Result Comment: Resu lt changed by DOTTY on 04/08/2021 19:16. The previous value was16.0. Performed By: #### 8 4511 ####[facility] [place] [address], [facility] MODALITY SIMV Normal [facility] Comment on above: Order Comment: on ar rival to CVU Performed By: #### 8 4511 ####[facility] [place] [address], [place] Oxygen (Bld) [Partial pressure] 69 mm[Hg] Low 83-108 [facility] Comment on above: Order Comment: on ar rival to CVU Performed By: #### 8 4511 ####[facility] [place] [address], [place] Oxygen saturation in Blood 93.8 % Low 94.0-97.0 [facility] Comment on above: Order Comment: on ar rival to CVU Performed By: #### 8 4511 ####[facility] [place] [address], [place] PCO2 36 mmHg Normal 35-45 [facility] Comment on above: Order Comment: on ar rival to CVU Performed By: #### 8 4511 ####[facility] [place] [address], [facility] PEEP 8.0 CMH20 Normal [facility] Comment on above: Order Comment: on ar rival to CVU Performed By: #### 8 4511 ####[facility] [place] [address], [facility] PF RATIO 99 mmHg Normal [facility] Comment on above: Order Comment: on ar rival to CVU Performed By: #### 8 4511 ####[facility] [place] [address], [facility] pH (Bld) 7.37 [pH] Normal 7.35-7.45 [facility] Comment on above: Order Comment: on ar rival to CVU Performed By: #### 8 4511 ####[facility] [place] [address], [facility] PRESSURE SUPPORT 10 Normal [facility] Comment on above: Order Comment: on ar rival to CVU Performed By: #### 8 4511 ####[facility] [place] [address], [facility] Respiratory rate 16 /min Normal [facility] Comment on above: Order Comment: on ar rival to CVU Performed By: #### 8 4511 ####[facility] [place] [address], [facility] TIDAL VOLUME (VT) CC 700 Normal [facility] Comment on above: Order Comment: on ar rival to CVU Performed By: #### 8 4511 ####[facility] [place] [address], [place] BASE EXCESS -4 mmol/L Low -2-3 [facility] Comment on above: Performed By: #### 8 4511 ####[facility] [place] [address], [facility] [employer] VENT Normal [facility] Comment on above: Performed By: #### 8 4511 ####[facility] [place] [address], [facility] FIO2 70 % Normal [facility] Comment on above: Performed By: #### 8 4511 ####[facility] [place] [address], [facility] HCO3 (Bld) [Moles/Vol] 23 mmol/L Normal 21-28 [facility] Comment on above: Performed By: #### 8 4511 ####[facility] [place] [address], [facility] IONIZED CALCIUM 1.14 mmol/L Normal 1.13-1.32 [facility] Comment on above: Performed By: #### 8 4511 ####[facility] [place] [address], [place] MIN VOLUME 9.0 Normal [facility] Comment on above: Performed By: #### 8 4511 ####[facility] [place] [address], [facility] MODALITY SIMV Normal [facility] Comment on above: Performed By: #### 8 4511 ####[facility] [place] [address], [facility] Oxygen (Bld) [Partial pressure] 70 mm[Hg] Low 83-108 [facility] Comment on above: Performed By: #### 8 4511 ####[facility] [place] [address], [place] Oxygen saturation in Blood 92.5 % Low 94.0-97.0 [facility] Comment on above: Performed By: #### 8 4511 ####[facility] [place] [address], [facility] PCO2 48 mmHg High 35-45 [facility] Comment on above: Performed By: #### 8 4511 ####[facility] [facility] [place] [address], [facility] PEEP 8.0 CMH20 Normal [facility] Comment on above: Performed By: #### 8 4511 ####[facility] [facility] [place] [address], [facility] PF RATIO 100 mmHg Normal [facility] Comment on above: Performed By: #### 8 4511 ####[facility] [facility] [place] [address], [facility] pH (Bld) 7.28 [pH] Low 7.35-7.45 [facility] Comment on above: Performed By: #### 8 4511 ####[facility] [facility].[address] PRESSURE SUPPORT 10 Normal [facility] Comment on above: Performed By: #### 8 4511 ####[facility] [facility].[address] Respiratory rate 14 /min Normal [facility] Comment on above: Performed By: #### 8 4511 ####[facility] [facility].[address] TIDAL VOLUME (VT) CC 550 Normal [facility] Comment on above: Performed By: #### 8 4511 ####[facility] [facility] BASIC METABOLIC PANELon 08- Calcium [Mass/Vol] 7.7 mg/dL Low 8.6-10.[address] [facility] Comment on above: Order Comment: No: D o not add to previous draw Performed By: #### 1 0070, 48319, 03928 ####[facility] [place] [address], [place] Chloride [Moles/Vol] 103 mmol/L Normal 98-107 [facility] Comment on above: Order Comment: No: D o not add to previous draw Performed By: #### 1 0070, 03582, 27117 ####[facility] [place] [address], [place] CO2 [Moles/Vol] 21 mmol/L Normal 21-31 [facility] Comment on above: Order Comment: No: D o not add to previous draw Performed By: #### 1 0070, 03252, 21545 ####[facility] [place] [address], [facility] Creatinine [Mass/Vol] 1.15 mg/dL Normal 0.70-1.30 [facility] Comment on above: Order Comment: No: D o not add to previous draw Performed By: #### 1 0070, 89806, 92927 ####[facility] [place] [address], [place] GFR/1.73 sq M.predicted among blacks MDRD (S/P/Bld) [Vol rate/Area] mL/min/{1.73_m2} Normal >60 [facility] Comment on above: Order Comment: No: D o not add to previous draw Result Comment: Calc ulation may not be valid for patients over 70 years Performed By: #### 1 0070, 64924, 49616 ####[facility] [place] [address], [place] GFR/1.73 sq M.predicted among non-blacks MDRD (S/P/Bld) [Vol rate/Area] mL/min/{1.73_m2} Normal >60 [facility] Comment on above: Order Comment: No: D o not add to previous draw Result Comment: Calc ulation may not be valid for patients over 70 years Performed By: #### 1 0070, 06188, 23281 ####[facility] [place] [address], [place] Glucose [Mass/Vol] 224 mg/dL High 70-[address] [facility] Comment on above: Order Comment: No: D o not add to previous draw Performed By: #### 1 0, 82728, 27697 ####[facility] [place] [address], [place] Potassium [Moles/Vol] 3.9 mmol/L Normal 3.5-5.1 [facility] Comment on above: Order Comment: No: D o not add to previous draw Performed By: #### 1 0, 93893, 00417 ####[facility] [place] [address], [place] Sodium [Moles/Vol] 134 mmol/L Low 136-[address] [facility] Comment on above: Order Comment: No: D o not add to previous draw Performed By: #### 1 0, 45879, 00739 ####[facility] [place] [address], [place] Urea nitrogen [Mass/Vol] 22 mg/dL Normal 7-25 [facility] Comment on above: Order Comment: No: D o not add to previous draw Performed By: #### 1 0, 03941, 25834 ####[facility] [place] [address], [place] Calcium [Mass/Vol] 7.7 mg/dL Low 8.6-10.[address] [facility] Comment on above: Performed By: #### 1 0, 42337, 50692 ####[facility] [place] [address], [place] Chloride [Moles/Vol] 105 mmol/L Normal 98-107 [facility] Comment on above: Performed By: #### 1 0070, 02420, 87913 ####[facility] [place] [address], [place] CO2 [Moles/Vol] 24 mmol/L Normal 21-31 [facility] Comment on above: Performed By: #### 1 0070, 43644, 96204 ####[facility] [place] [address], [place] Creatinine [Mass/Vol] 0.81 mg/dL Normal 0.70-1.30 [facility] Comment on above: Performed By: #### 1 0, 26822, 58837 ####[facility] [place] [address], [place] GFR/1.73 sq M.predicted among blacks MDRD (S/P/Bld) [Vol rate/Area] mL/min/{1.73_m2} Normal >60 [facility] Comment on above: Result Comment: Calc ulation may not be valid for patients over 70 years Performed By: #### 1 0070, 20226, 95315 ####[facility] [place] [address], [place] GFR/1.73 sq M.predicted among non-blacks MDRD (S/P/Bld) [Vol rate/Area] mL/min/{1.73_m2} Normal >60 [facility] Comment on above: Result Comment: Calc ulation may not be valid for patients over 70 years Performed By: #### 1 0070, 91606, 82151 ####[facility] [place] [address], [place] Glucose [Mass/Vol] 189 mg/dL High 70-100 [facility] Comment on above: Performed By: #### 1 0070, 30755, 72042 ####[facility] [place] [address], [place] Potassium [Moles/Vol] 4.3 mmol/L Normal 3.5-5.1 [facility] Comment on above: Performed By: #### 1 0070, 35374, 43571 ####[facility] [place] [address], [facility] Sodium [Moles/Vol] 133 mmol/L Low 136-[address] [facility] Comment on above: Performed By: #### 1 0070, 40634, 50164 ####[facility] [place] [address], [place] Urea nitrogen [Mass/Vol] 20 mg/dL Normal 7-25 [facility] Comment on above: Performed By: #### 1 0070, 87359, 56853 ####[facility] [place] [address], [place] Calcium [Mass/Vol] 8.7 mg/dL Normal 8.6-10.[address] [facility] Comment on above: Order Comment: No: D o not add to previous draw Performed By: #### 0 0071, 44014, 35128 ####[facility] [place] [address], [place] Chloride [Moles/Vol] 103 mmol/L Normal 98-107 [facility] Comment on above: Order Comment: No: D o not add to previous draw Performed By: #### 0 0071, 60984, 25879 ####[facility] [place] [address], [place] CO2 [Moles/Vol] 26 mmol/L Normal 21-31 [facility] Comment on above: Order Comment: No: D o not add to previous draw Performed By: #### 0 0071, 08158, 70053 ####[facility] [place] [address], [place] Creatinine [Mass/Vol] 0.74 mg/dL Normal 0.70-1.30 [facility] Comment on above: Order Comment: No: D o not add to previous draw Performed By: #### 0 0071, 26104, 42507 ####[facility] [place] [address], [facility] GFR/1.73 sq M.predicted among blacks MDRD (S/P/Bld) [Vol rate/Area] mL/min/{1.73_m2} Normal >60 [facility] Comment on above: Order Comment: No: D o not add to previous draw Result Comment: Calc ulation may not be valid for patients over 70 years Performed By: #### 0 0071, 37612, 51112 ####[facility] [place] [address], [facility] GFR/1.73 sq M.predicted among non-blacks MDRD (S/P/Bld) [Vol rate/Area] mL/min/{1.73_m2} Normal >60 [facility] Comment on above: Order Comment: No: D o not add to previous draw Result Comment: Calc ulation may not be valid for patients over 70 years Performed By: #### 0 0071, 83472, 89175 ####[facility] [facility] [place] [address], [facility] Glucose [Mass/Vol] 107 mg/dL High 70-100 [facility] Comment on above: Order Comment: No: D o not add to previous draw Performed By: #### 0 0071, 26130, 49184 ####[facility] [place] [address], [place] Potassium [Moles/Vol] 4.1 mmol/L Normal 3.5-5.1 [facility] Comment on above: Order Comment: No: D o not add to previous draw Performed By: #### 0 0071, 24685, 48566 ####[facility] [place] [address], [place] Sodium [Moles/Vol] 133 mmol/L Low 136-[address] [facility] Comment on above: Order Comment: No: D o not add to previous draw Performed By: #### 0 0071, 54983, 74337 ####[facility] [facility].[address] Urea nitrogen [Mass/Vol] 19 mg/dL Normal 7-25 [facility] Comment on above: Order Comment: No: D o not add to previous draw Performed By: #### 0 0071, 75640, 24130 ####[facility] [facility].[address] CBC COMPLETE BLOOD COUNTon 0 04-08-2021 Erythrocyte distribution width (RBC) [Ratio] 14.4 % Normal 11.5-15.0 [facility] Comment on above: Order Comment: No: D o not add to previous draw Performed By: #### 5 0608 ####[facility] [facility].[address] Hematocrit (Bld) [Volume fraction] 33.4 % Low 39.0-50.0 [facility] Comment on above: Order Comment: No: D o not add to previous draw Performed By: #### 5 0608 ####[facility] [facility] [place] [address], [facility] Hemoglobin (Bld) [Mass/Vol] 10.9 g/dL Low 13.0-17.0 [facility] Comment on above: Order Comment: No: D o not add to previous draw Performed By: #### 5 0608 ####[facility] [facility] [place] [address], [facility] MCH (RBC) [Entitic mass] 30.4 pg Normal 27.0-33.0 [facility] Comment on above: Order Comment: No: D o not add to previous draw Performed By: #### 5 0608 ####[facility] [facility] [place] [address], [facility] MCHC (RBC) [Mass/Vol] 32.6 g/dL Normal 32.0-35.0 [facility] Comment on above: Order Comment: No: D o not add to previous draw Performed By: #### 5 0608 ####[facility] [place] [address], [facility] MCV (RBC) [Entitic vol] 93.3 fL Normal 82.0-98.0 [facility] Comment on above: Order Comment: No: D o not add to previous draw Performed By: #### 5 0608 ####[facility] [facility].[address] Nucleated RBC/100 WBC (Bld) [Ratio] 0 % Normal 0-0 [facility] Comment on above: Order Comment: No: D o not add to previous draw Performed By: #### 5 0608 ####[facility] [facility].[address] PLAT CNT 228 10*3/uL Normal 150-400 The [facility] Comment on above: Order Comment: No: D o not add to previous draw Performed By: #### 5 0608 ####[place] [id number] [facility].[address] RBC (Bld) [#/Vol] 3.58 10*6/uL Low 4.20-5.70 The [facility] Comment on above: Order Comment: No: D o not add to previous draw Performed By: #### 5 0608 ####[facility] [facility] [place] [address], [facility] WBC (Bld) [#/Vol] 18.53 10*3/uL High 4.00-10.60 [facility] Comment on above: Order Comment: No: D o not add to previous draw Performed By: #### 5 0608 ####[facility] [facility] Erythrocyte distribution width (RBC) [Ratio] 14.6 % Normal 11.5-15.0 [facility] Comment on above: Performed By: #### 5 0608 ####[place] [id number] [facility].[address] Hematocrit (Bld) [Volume fraction] 35.5 % Low 39.0-50.0 [facility] Comment on above: Performed By: #### 5 0608 ####[facility] [place] [address] Hemoglobin (Bld) [Mass/Vol] 11.5 g/dL Low 13.0-17.0 [facility] Comment on above: Performed By: #### 5 0608 ####[address] MCH (RBC) [Entitic mass] 30.5 pg Normal 27.0-33.0 [facility] Comment on above: Performed By: #### 5 0608 ####[place] [id number] [address] MCHC (RBC) [Mass/Vol] 32.4 g/dL Normal 32.0-35.0 [facility] Comment on above: Performed By: #### 5 0608 ####[address] MCV (RBC) [Entitic vol] 94.2 fL Normal 82.0-98.0 [facility] Comment on above: Performed By: #### 5 0608 ####[address] Nucleated RBC/100 WBC (Bld) [Ratio] 0 % Normal 0-0 [facility] Comment on above: Performed By: #### 5 0608 ####[address] PLAT CNT 219 10*3/uL Normal 150-400 The [facility] Comment on above: Performed By: #### 5 0608 ####[facility] [facility] [place] [address], [facility] RBC (Bld) [#/Vol] 3.77 10*6/uL Low 4.20-5.70 [facility] Comment on above: Performed By: #### 5 0608 ####[facility] [facility] [place] [address], [facility] WBC (Bld) [#/Vol] 14.37 10*3/uL High 4.00-10.60 [facility] Comment on above: Performed By: #### 5 0608 ####[facility] [facility].[address] Erythrocyte distribution width (RBC) [Ratio] 14.7 % Normal 11.5-15.0 [facility] Comment on above: Order Comment: No: D o not add to previous draw Performed By: #### 5 0608 ####[facility] [facility].[address] Hematocrit (Bld) [Volume fraction] 40.7 % Normal 39.0-50.0 [facility] Comment on above: Order Comment: No: D o not add to previous draw Performed By: #### 5 0608 ####[facility] [facility] [place] [address], [facility] Hemoglobin (Bld) [Mass/Vol] 13.5 g/dL Normal 13.0-17.0 [facility] Comment on above: Order Comment: No: D o not add to previous draw Performed By: #### 5 0608 ####[facility] [facility] [place] [address], [facility] MCH (RBC) [Entitic mass] 30.5 pg Normal 27.0-33.0 [facility] Comment on above: Order Comment: No: D o not add to previous draw Performed By: #### 5 0608 ####[facility] [facility].[address] MCHC (RBC) [Mass/Vol] 33.2 g/dL Normal 32.0-35.0 [facility] Comment on above: Order Comment: No: D o not add to previous draw Performed By: #### 5 0608 ####[facility] MCV (RBC) [Entitic vol] 92.1 fL Normal 82.0-98.0 [facility] Comment on above: Order Comment: No: D o not add to previous draw Performed By: #### 5 0608 ####[place] [id number] Nucleated RBC/100 WBC (Bld) [Ratio] 0 % Normal 0-0 [facility] Comment on above: Order Comment: No: D o not add to previous draw Performed By: #### 5 0608 ####[facility] [facility].[address] PLAT CNT 233 10*3/uL Normal 150-400 The [facility] Comment on above: Order Comment: No: D o not add to previous draw Performed By: #### 5 0608 ####[facility] [facility].[address] RBC (Bld) [#/Vol] 4.42 10*6/uL Normal 4.20-5.70 The [facility] Comment on above: Order Comment: No: D o not add to previous draw Performed By: #### 5 0608 ####[facility] [place] [address].[place] [address], [facility] WBC (Bld) [#/Vol] 7.11 10*3/uL Normal 4.00-10.60 [facility] Comment on above: Order Comment: No: D o not add to previous draw Performed By: #### 5 0608 ####[facility] COOXIMETRYon 04-08-2021 COHB 1 % Normal [facility] Comment on above: Performed By: #### 7 0207 ####[facility] METHB 1 % Normal [facility] Comment on above: Performed By: #### 7 0207 ####[facility] Oxygen saturation in Blood 77.5 % High 65.0-75.0 [facility] Comment on above: Performed By: #### 7 0207 ####[facility] THB 10.7 g/dL Normal [facility] Comment on above: Performed By: #### 7 0207 ####[facility] FERRITINon 04-08-2021 Ferritin [Mass/Vol] 116 ng/mL Normal 24-336 [facility] Comment on above: Performed By: #### 1 0070, 45125, 92225 ####[facility] [place] [address], [facility] FIBRINOGENon 04-08-2021 FIBRINOGEN 362 mg/dL Normal 150-425 [facility] Comment on above: Performed By: #### 5 7307, 24067, 70616 ####[facility] [place] [place] [address], [facility] LACTATE BLOODon 04-08-2021 Lactate [Moles/Vol] 3.7 mmol/L High .5-2.2 The [facility] Comment on above: Order Comment: No: D o not add to previous draw Result Comment: M-CR ITICAL RESULT(S) REVIEWED, CALLED TO AND READ BACK BY Kleber TRAN at 2203. Performed By: #### 1 0054 ####[facility] [place] [address], [place] Lactate [Moles/Vol] 2.5 mmol/L High .5-2.2 [facility] Comment on above: Order Comment: No: D o not add to previous draw Performed By: #### 1 0054 ####[facility] [place] [address], [place] Lactate [Moles/Vol] 1.0 mmol/L Normal .5-2.2 [facility] Comment on above: Performed By: #### 1 0054 ####[facility] [place] [address], [place] MAGNESIUM BLOODon 04-08-2021 Magnesium [Mass/Vol] 2.3 mg/dL Normal 1.9-2.7 [facility] Comment on above: Order Comment: No: D o not add to previous draw Performed By: #### 1 0070, 68579, 84694 ####[facility] [place] [address], [place] Magnesium [Mass/Vol] 1.9 mg/dL Normal 1.9-2.7 [facility] Comment on above: Performed By: #### 1 0070, 54509, 16111 ####[facility] [place] [address], [place] Magnesium [Mass/Vol] 2.2 mg/dL Normal 1.9-2.7 [facility] Comment on above: Order Comment: No: D o not add to previous draw Performed By: #### 0 0071, 66203, 02322 ####[facility] [place] [address], [facility] PERFUSION BLOOD PANELon 03-24 BASE EXCESS -3.0 mmol/L Low -2.0-3.0 The [facility] Comment on above: Performed By: #### 3 0738 ####[facility] [place] [address], [facility] Glucose [Mass/Vol] 193 mg/dL High 70-105 [facility] Comment on above: Performed By: #### 3 0738 ####[facility] [place] [address], [facility] Hematocrit (Bld) [Volume fraction] 36 % Low 38-51 [facility] Comment on above: Performed By: #### 3 0738 ####[facility] [place] [address], [facility] Hemoglobin (Bld) [Mass/Vol] 12.2 g/dL Normal 12.0-17.0 [facility] Comment on above: Performed By: #### 3 0738 ####[place] [id number] [place] [address], [facility] IONIZED CALCIUM 1.22 mmol/L Normal 1.12-1.32 [facility] Comment on above: Performed By: #### 3 0738 ####[facility] [place] [address], [facility] Oxygen (Bld) [Partial pressure] 131.0 mm[Hg] High 80.0-105.0 The [facility] Comment on above: Performed By: #### 3 0738 ####[facility] [place] [address], [facility] PCO2 51.6 mmHg High 35.0-45.0 [facility] Comment on above: Performed By: #### 3 0738 ####[facility] [place] [address], [facility] pH (Bld) 7.28 [pH] Low 7.35-7.45 [facility] Comment on above: Performed By: #### 3 0738 ####[facility] [id number], [facility] Potassium [Moles/Vol] 4.4 mmol/L Normal 3.5-4.9 [facility] Comment on above: Performed By: #### 3 0738 ####[facility] [place] [address], [facility] Sodium [Moles/Vol] 139 mmol/L Normal 138-[address] [facility] Comment on above: Performed By: #### 3 0738 ####[facility] [place] [address], [facility] BASE EXCESS -2.0 mmol/L Normal -2.0-3.0 The [facility] Comment on above: Performed By: #### 3 0738 ####[facility] [place] [address], [facility] Glucose [Mass/Vol] 156 mg/dL High 70-[address] [facility] Comment on above: Performed By: #### 3 0738 ####[facility] [place] [address], [facility] Hematocrit (Bld) [Volume fraction] 36 % Low 38-51 [facility] Comment on above: Performed By: #### 3 0738 ####[facility] [place] [address], [facility] Hemoglobin (Bld) [Mass/Vol] 12.2 g/dL Normal 12.0-17.0 [facility] Comment on above: Performed By: #### 3 0738 ####[facility] [id number], [facility] IONIZED CALCIUM 1.17 mmol/L Normal 1.12-1.32 The [facility] Comment on above: Performed By: #### 3 0738 ####[facility] [place] [address], [facility] Oxygen (Bld) [Partial pressure] 196.0 mm[Hg] High 80.0-105.0 The [facility] Comment on above: Performed By: #### 3 0738 ####[facility] [place] [address], [facility] PCO2 46.9 mmHg High 35.0-45.0 [facility] Comment on above: Performed By: #### 3 0738 ####[facility] [facility] [place] [address], [facility] pH (Bld) 7.33 [pH] Low 7.35-7.45 [facility] Comment on above: Performed By: #### 3 0738 ####[facility] [facility] [place] [address], [facility] Potassium [Moles/Vol] 4.5 mmol/L Normal 3.5-4.9 [facility] Comment on above: Performed By: #### 3 0738 ####[facility] [place] [place] [address], [place] Sodium [Moles/Vol] 139 mmol/L Normal 138-[address] [facility] Comment on above: Performed By: #### 3 0738 ####[facility] [place] [address], [place] BASE EXCESS -1.0 mmol/L Normal -2.0-3.0 [facility] Comment on above: Performed By: #### 3 0738 ####[facility] [place] [address], [place] Glucose [Mass/Vol] 133 mg/dL High 70-[address] [facility] Comment on above: Performed By: #### 3 0738 ####[facility] [facility] [place] [address], [facility] Hematocrit (Bld) [Volume fraction] 37 % Low 38-51 [facility] Comment on above: Performed By: #### 3 0738 ####[facility] [facility].[address] Hemoglobin (Bld) [Mass/Vol] 12.6 g/dL Normal 12.0-17.0 [facility] Comment on above: Performed By: #### 3 0738 ####[place] [id number] [facility].[address] IONIZED CALCIUM 1.19 mmol/L Normal 1.12-1.32 [facility] Comment on above: Performed By: #### 3 0738 ####[place] [id number] [facility].[address] Oxygen (Bld) [Partial pressure] 184.0 mm[Hg] High 80.0-105.0 [facility] Comment on above: Performed By: #### 3 0738 ####[address] PCO2 46.6 mmHg High 35.0-45.0 [facility] Comment on above: Performed By: #### 3 0738 ####[facility] [facility].[address] pH (Bld) 7.34 [pH] Low 7.35-7.45 [facility] Comment on above: Performed By: #### 3 0738 ####[place] [id number] [facility] [place] [address], [facility] Potassium [Moles/Vol] 4.3 mmol/L Normal 3.5-4.9 [facility] Comment on above: Performed By: #### 3 0738 ####[facility] [place] [address], [facility] Sodium [Moles/Vol] 139 mmol/L Normal 138-[address] [facility] Comment on above: Performed By: #### 3 0738 ####[facility] [place] [address], [facility] BASE EXCESS -1.0 mmol/L Normal -2.0-3.0 [facility] Comment on above: Performed By: #### 3 0738 ####[facility] [place] [address], [facility] Glucose [Mass/Vol] 118 mg/dL High 70-105 [facility] Comment on above: Performed By: #### 3 0738 ####[place] [id number] [place] [address], [facility] Hematocrit (Bld) [Volume fraction] 39 % Normal 38-51 [facility] Comment on above: Performed By: #### 3 0738 ####[facility] [place] [address], [facility] Hemoglobin (Bld) [Mass/Vol] 13.3 g/dL Normal 12.0-17.0 [facility] Comment on above: Performed By: #### 3 0738 ####[facility] [place] [address], [facility] IONIZED CALCIUM 1.17 mmol/L Normal 1.12-1.32 [facility] Comment on above: Performed By: #### 3 0738 ####[place] [id number] [place] [address], [facility] Oxygen (Bld) [Partial pressure] 96.0 mm[Hg] Normal 80.0-105.0 [facility] Comment on above: Performed By: #### 3 0738 ####[facility] [place] [address], [facility] PCO2 41.2 mmHg Normal 35.0-45.0 [facility] Comment on above: Performed By: #### 3 0738 ####[facility] [place] [address], [place] pH (Bld) 7.38 [pH] Normal 7.35-7.45 [facility] Comment on above: Performed By: #### 3 0738 ####[facility] [place] [address], [place] Potassium [Moles/Vol] 4.3 mmol/L Normal 3.5-4.9 [facility] Comment on above: Performed By: #### 3 0738 ####[facility] [place] [address], [place] Sodium [Moles/Vol] 139 mmol/L Normal 138-[address] [facility] Comment on above: Performed By: #### 3 0738 ####[facility] [place] [address], [facility] PHOSPHORUS BLOODon Phosphate [Mass/Vol] 4.0 mg/dL Normal 2.5-5.0 [facility] Comment on above: Order Comment: No: D o not add to previous draw Performed By: #### 1 0070, [id number], 57797 ####[facility] [place] [address], [facility] Phosphate [Mass/Vol] 3.8 mg/dL Normal 2.5-5.0 [facility] Comment on above: Order Comment: No: D o not add to previous draw Performed By: #### 0 0071, 77490, 48603 ####[facility] [place] [address], [place] POC GLUCOSE LABon 04-08-2021 Glucose [Mass/Vol] 252 mg/dL High 70-[address] [facility] Comment on above: Performed By: #### 8 5499 ####[facility] [place] [address], [place] Glucose [Mass/Vol] 240 mg/dL High 70-[address] [facility] Comment on above: Performed By: #### 8 5499 ####[facility] [place] [address], [place] Glucose [Mass/Vol] 126 mg/dL High 70-[address] [facility] Comment on above: Performed By: #### 8 5499 ####[facility] [place] [address], [place] Glucose [Mass/Vol] 178 mg/dL High 70-[address] [facility] Comment on above: Performed By: #### 8 5499 ####[facility] [place] [address], [place] Glucose [Mass/Vol] 195 mg/dL High 70-[address] [facility] Comment on above: Performed By: #### 8 5499 ####[facility] [place] [address], [place] Glucose [Mass/Vol] 113 mg/dL High 70-[address] [facility] Comment on above: Performed By: #### 8 5499 ####[facility] [place] [address], [place] Glucose [Mass/Vol] 118 mg/dL High 70-[address] [facility] Comment on above: Performed By: #### 8 5499 ####[facility] [place] [address], [place] PORTABLE CHEST 1 VIEWon 03-24 PORTABLE CHEST 1 VIEW Normal [facility] Comment on above: Order Comment: Check Chest Tube Position, ON ARRIVAL TO CVU PROTHROMBIN TIMEon 08-16-202 1 INR Coag (PPP) [Relative time] 1.20 {INR} High 0.91-1.16 [facility] Comment on above: Order Comment: No: D o not add to previous draw Result Comment: [facility] P RECOMMENDED INR FOR WARFARIN THERAPY CONDITION INRPROPHYLAXIS OF VENOUS THROMBOSIS 2-3(HIGH-RISK SURGERY)TREATMENT OF VENOUS THROMBOSIS 2-3TREATMENT OF PULMONARY EMBOLISM 2-3PREVENTION OF SYSTEMIC EMBOLISM: 2-3 ACUTE MYOCARDIAL INFARCTION TISSUE HEART VALVES VALVULAR HEART DISEASE ATRIAL FIBRILLATION RECURRENT SYSTEMIC EMBOLISMMECHANICAL HEART VALVE 2.5-3.5 FROM: ORAL ANTICOAGULANTS. MECHANISM OF ACTION, CLINICALEFFECTIVENESS, AND OPTIMAL THERAPEUTIC RANGE. [id number];108:231S-246S. Performed By: #### 5 6101, 79847 ####[facility] [facility] [place] [address], [facility] PT Coag (PPP) [Time] 15.2 s High 12.3-14.8 [facility] Comment on above: Order Comment: No: D o not add to previous draw Result Comment: ALL RESULTS MUST BE INTERPRETED WITH RESPECT TO BLOOD DRAWING ARTIFACTOR DILUTION ERROR OF ANTICOAGULANT AT THE TIME OF SAMPLING. Performed By: #### 5 6101, 11775 ####[facility] [facility] [place] [address], [facility] INR Coag (PPP) [Relative time] 1.23 {INR} High 0.91-1.16 [facility] Comment on above: Result Comment: [facility] P RECOMMENDED INR FOR WARFARIN THERAPY CONDITION INRPROPHYLAXIS OF VENOUS THROMBOSIS 2-3(HIGH-RISK SURGERY)TREATMENT OF VENOUS THROMBOSIS 2-3TREATMENT OF PULMONARY EMBOLISM 2-3PREVENTION OF SYSTEMIC EMBOLISM: 2-3 ACUTE MYOCARDIAL INFARCTION TISSUE HEART VALVES VALVULAR HEART DISEASE ATRIAL FIBRILLATION RECURRENT SYSTEMIC EMBOLISMMECHANICAL HEART VALVE 2.5-3.5 FROM: ORAL ANTICOAGULANTS. MECHANISM OF ACTION, CLINICALEFFECTIVENESS, AND OPTIMAL THERAPEUTIC RANGE. [id number];108:231S-246S. Performed By: #### 5 7307, 82518, 57066 ####[facility] PT Coag (PPP) [Time] 15.5 s High 12.3-14.8 [facility] Comment on above: Result Comment: ALL RESULTS MUST BE INTERPRETED WITH RESPECT TO BLOOD DRAWING ARTIFACTOR DILUTION ERROR OF ANTICOAGULANT AT THE TIME OF SAMPLING. Performed By: #### 5 7307, 06120, 99687 ####[facility] [facility].[address] INR Coag (PPP) [Relative time] 1.05 {INR} Normal 0.91-1.16 [facility] Comment on above: [...] OF ACTION, CLINICALEFFECTIVENESS, AND OPTIMAL THERAPEUTIC RANGE. [id number];108:231S-246S. Performed By: #### 5 6101 ####[facility] PT Coag (PPP) [Time] 13.7 s Normal 12.3-14.8 [facility] Comment on above: Order Comment: No: D o not add to previous draw Result Comment: ALL RESULTS MUST BE INTERPRETED WITH RESPECT TO BLOOD DRAWING ARTIFACTOR DILUTION ERROR OF ANTICOAGULANT AT THE TIME OF SAMPLING. Performed By: #### 5 6101 ####[facility] TROPONIN-Ion 04-08-2021 Troponin I.cardiac [Mass/Vol] 0.34 ng/mL Critically high 0.00-0.04 [facility] Comment [...] AN M.I. Performed By: #### 3 5200 ####[facility] POC GLUCOSE LABon 04-07-2021 Glucose [Mass/Vol] 121 mg/dL High 70-100 [facility] Comment on above: Performed By: #### 8 5499 ####[facility] [facility] [place] [address], [facility] Glucose [Mass/Vol] 165 mg/dL High 70-100 [facility] Comment on above: Performed By: #### 8 5499 ####[facility] [facility].[place] [id number], [facility] Glucose [Mass/Vol] 109 mg/dL High 70-[address] [facility] Comment on above: Performed By: #### 8 5499 ####[facility] POC SARS COV2 ANTIGEN NEGATI VEon 04-07-2021 POC SARS COV2 ANTIGEN NEG Negative Normal NEGATIVE [facility] Comment on above: Result Comment: [...] of clinicalsigns and symptoms consistent with COVID-19.The DeliveredW COVID-19 Ag Card is a lateral flow immunoassay intended forthe qualitative detection of nucleocapsid protein antigen [id number] in direct nasal swabs from individuals within [...] Certificate ofAccreditation. Performed By: #### 3 1977 ####[facility] [place], [place] [address] Pulmonary Functionon 021 Pulmonary Function Normal [facility] RBC'S 4 UNITSon 04-07-2021 CROSSMATCH INTERP 1 COMP Normal [facility] Comment on above: Performed By: #### 8 6004 ####[facility] [place] [address], [facility] CROSSMATCH INTERP 2 COMP Normal The [facility] Comment on above: Performed By: #### 8 6004 ####[facility] [place] [address], [facility] CROSSMATCH INTERP 3 COMP Normal The [facility] Comment on above: Performed By: #### 8 6004 ####[facility] [place] [address], [facility] CROSSMATCH INTERP 4 COMP Normal [facility] Comment on above: Performed By: #### 8 6004 ####[facility] [place] [address], [facility] PRODUCT CODE 1 E0336 Normal The [facility] Comment on above: Performed By: #### 8 6004 ####[facility] [place] [address], [facility] PRODUCT CODE 2 E0336 Normal The [facility] Comment on above: Performed By: #### 8 6004 ####[facility] [place] [address], [place] PRODUCT CODE 3 E0336 Normal [facility] Comment on above: Performed By: #### 8 6004 ####[facility] [place] [address], [place] PRODUCT CODE 4 E0336 Normal [facility] Comment on above: Performed By: #### 8 6004 ####[facility] [facility] [place] [address], [facility] PRODUCT STATUS 1 RE Normal The [facility] Comment on above: Result Comment: Resu lt changed by IF on 04/08/2021 12:37. The previous value was XM.Result changed by IF on 04/08/2021 16:53. The previous value was IS.Result changed by IF on 04/11/2021 11:14. The previous value was XM. Performed By: #### 8 6004 ####[facility] [facility].[place], [place] [address] PRODUCT STATUS 2 RE Normal The [facility] Comment on above: Result Comment: Resu lt changed by IF on 04/08/2021 12:37. The previous value was XM.Result changed by IF on 04/08/2021 16:53. The previous value was IS.Result changed by IF on 04/11/2021 11:14. The previous value was XM. Performed By: #### 8 6004 ####[facility] [facility] [place] [address], [facility] PRODUCT STATUS 3 RE Normal The [facility] Comment on above: Result Comment: Resu lt changed by IF on 04/08/2021 12:37. The previous value was XM.Result changed by IF on 04/08/2021 16:53. The previous value was IS.Result changed by IF on 04/11/2021 11:14. The previous value was XM. Performed By: #### 8 6004 ####[facility] [place] [address], [facility] PRODUCT STATUS 4 RE Normal The [facility] Comment on above: Result Comment: Resu lt changed by IF on 04/08/2021 12:37. The previous value was XM.Result changed by IF on 04/08/2021 16:53. The previous value was IS.Result changed by IF on 04/11/2021 11:14. The previous value was XM. Performed By: #### 8 6004 ####[facility] [facility] [place] [id number] [place] [address] UNIT ABO 1 O Normal [facility] Comment on above: Performed By: #### 8 6004 ####[facility], [place] [id number] [place] [address] UNIT ABO 2 O Normal [facility] Comment on above: Performed By: #### 8 6004 ####[facility], [place] [id number] [place] [address] UNIT ABO 3 O Normal [facility] Comment on above: Performed By: #### 8 6004 ####[facility] [facility] [place] [id number] [place] [address] UNIT ABO 4 O Normal [facility] Comment on above: Performed By: #### 8 6004 ####[facility] [facility].[place], [place] [address] [place] [address] UNIT ID 1 [id number] Normal [facility] Comment on above: Performed By: #### 8 6004 ####[facility] [facility].[address] UNIT ID 2 [id number] Normal [facility] Comment on above: Performed By: #### 8 6004 ####[facility] [place] [address], [facility] UNIT ID 3 [id number] Normal [facility] Comment on above: Performed By: #### 8 6004 ####[facility] [place] [address], [facility] UNIT ID 4 [id number] Normal [facility] Comment on above: Performed By: #### 8 6004 ####[facility] [place] [address], [facility] UNIT RH 1 Positive Normal [facility] Comment on above: Performed By: #### 8 6004 ####[facility] [place] [address], [facility] UNIT RH 2 Positive Normal [facility] Comment on above: Performed By: #### 8 6004 ####[facility] [place] [address], [facility] UNIT RH 3 Positive Normal [facility] Comment on above: Performed By: #### 8 6004 ####[facility] [place] [address], [facility] UNIT RH 4 Positive Normal [facility] Comment on above: Performed By: #### 8 6004 ####[facility] [place] [address], [facility] TYPE AND SCREENon 04-07-2021 ABO INTERPRETATION O Normal [facility] Comment on above: Performed By: #### 6 2586 ####[facility] [place] [address], [facility] RH INTERPRETATION Positive Normal The [facility] Comment on above: Performed By: #### 6 2586 ####[facility], [place] [address] *MRSA/MSSA DNA NASALon 04-06 *MRSA/MSSA DNA NASAL Clinical Report: (D) Specimen: NASAL SWAB Collected: 04/06/2021 12:43 Status: Final Last Updated: 04/06/2021 16:01 MSSA DNA (Final) Negative MRSA DNA (Final) Negative Normal [facility] Comment on above: Performed By: #### 3 1595 ####[facility] [place] [address], [facility] BASIC METABOLIC PANELon 08- Calcium [Mass/Vol] 8.9 mg/dL Normal 8.6-10.3 The [facility] Comment on above: Order Comment: No: D o not add to previous draw Performed By: #### 1 0, 71162 ####[facility] [place] [address], [facility] Chloride [Moles/Vol] 103 mmol/L Normal 98-107 [facility] Comment on above: Order Comment: No: D o not add to previous draw Performed By: #### 1 69, 91404 ####[facility] [place] [address], [facility] CO2 [Moles/Vol] 26 mmol/L Normal 21-31 [facility] Comment on above: Order Comment: No: D o not add to previous draw Performed By: #### 1 69, 26536 ####[facility] [place] [address], [facility] Creatinine [Mass/Vol] 0.78 mg/dL Normal 0.70-1.30 [facility] Comment on above: Order Comment: No: D o not add to previous draw Performed By: #### 1 69, 01718 ####[facility] [place] [address], [facility] GFR/1.73 sq M.predicted among blacks MDRD (S/P/Bld) [Vol rate/Area] mL/min/{1.73_m2} Normal >60 [facility] Comment on above: Order Comment: No: D o not add to previous draw Result Comment: Calc ulation may not be valid for patients over 70 years Performed By: #### 1 69, 75370 ####[facility] [place] [address], [facility] GFR/1.73 sq M.predicted among non-blacks MDRD (S/P/Bld) [Vol rate/Area] mL/min/{1.73_m2} Normal >60 [facility] Comment on above: Order Comment: No: D o not add to previous draw Result Comment: Calc ulation may not be valid for patients over 70 years Performed By: #### 1 69, 07963 ####[facility] [facility] [place] [address], [facility] Glucose [Mass/Vol] 101 mg/dL High 70-[address] [facility] Comment on above: Order Comment: No: D o not add to previous draw Performed By: #### 1 69, 98498 ####[facility] [facility] [place] [address], [facility] Potassium [Moles/Vol] 4.1 mmol/L Normal 3.5-5.1 [facility] Comment on above: Order Comment: No: D o not add to previous draw Performed By: #### 1 69, [address] ####[place] [id number] [facility] [place] [address], [facility] Sodium [Moles/Vol] 134 mmol/L Low 136-[address] [facility] Comment on above: Order Comment: No: D o not add to previous draw Performed By: #### 1 69, 09135 ####[place] [id number] [facility].[address] Urea nitrogen [Mass/Vol] 20 mg/dL Normal 7-25 [facility] Comment on above: Order Comment: No: D o not add to previous draw Performed By: #### 1 69, 61033 ####[facility] [facility].[address] CBC COMPLETE BLOOD COUNTon 0 - Erythrocyte distribution width (RBC) [Ratio] 15.3 % High 11.5-15.0 [facility] Comment on above: Order Comment: No: D o not add to previous draw Performed By: #### 5 0608 ####[facility] [facility] [place] [address], [facility] Hematocrit (Bld) [Volume fraction] 43.0 % Normal 39.0-50.0 [facility] Comment on above: Order Comment: No: D o not add to previous draw Performed By: #### 5 0608 ####[facility] [facility].[address] Hemoglobin (Bld) [Mass/Vol] 14.3 g/dL Normal 13.0-17.0 [facility] Comment on above: Order Comment: No: D o not add to previous draw Performed By: #### 5 0608 ####[facility] [facility].[address] MCH (RBC) [Entitic mass] 30.6 pg Normal 27.0-33.0 The [facility] Comment on above: Order Comment: No: D o not add to previous draw Performed By: #### 5 [id number] ####[facility] MCHC (RBC) [Mass/Vol] 33.3 g/dL Normal 32.0-35.0 The [facility] Comment on above: Order Comment: No: D o not add to previous draw Performed By: #### 5 [id number] ####[facility] [facility].[address] MCV (RBC) [Entitic vol] 92.1 fL Normal 82.0-98.0 [facility] Comment on above: Order Comment: No: D o not add to previous draw Performed By: #### 5 [id number] ####[facility] [facility].[address] Nucleated RBC/100 WBC (Bld) [Ratio] 0 % Normal 0-0 [facility] Comment on above: Order Comment: No: D o not add to previous draw Performed By: #### 5 [id number] ####[facility] [place] [address] PLAT CNT 238 10*3/uL Normal 150-400 The [facility] Comment on above: Order Comment: No: D o not add to previous draw Performed By: #### 5 [id number] ####[facility] [place] [address], [place] RBC (Bld) [#/Vol] 4.67 10*6/uL Normal 4.20-5.70 The [facility] Comment on above: Order Comment: No: D o not add to previous draw Performed By: #### 5 [id number] ####[facility] [place] [address], [place] WBC (Bld) [#/Vol] 6.86 10*3/uL Normal 4.00-10.60 The [facility] Comment on above: Order Comment: No: D o not add to previous draw Performed By: #### 5 [id number] ####[facility] [place] [address], [place] MAGNESIUM BLOODon 04-06-2021 Magnesium [Mass/Vol] 2.0 mg/dL Normal 1.9-2.7 The [facility] Comment on above: Order Comment: No: D o not add to previous draw Performed By: #### 1 0070, [id number] ####[facility] [place] [address], [place] POC GLUCOSE LABon 04-06-2021 Glucose [Mass/Vol] 118 mg/dL High 70-[address] [facility] Comment on above: Performed By: #### 8 [id number] ####[facility] [place] [address], [place] Glucose [Mass/Vol] 108 mg/dL High 70-[address] [facility] Comment on above: Performed By: #### 8 [id number] ####[facility] [place] [address], [place] Glucose [Mass/Vol] 114 mg/dL High 70-[address] [facility] Comment on above: Performed By: #### 8 [id number] ####[facility] [facility] [place] [address], [facility] Glucose [Mass/Vol] 126 mg/dL High 70-[address] [facility] Comment on above: Performed By: #### 8 [id number] ####[facility] [facility] [place] [address], [facility] URINALYSIS REFLEXon 04-06-20 21 Appearance (U) CLEAR Normal CLEAR The [facility] Comment on above: Order Comment: No: D o not add to previous drawCriteria for reflexing a culture was not met. Please call the lab [id number] within 24 hours of collection time if culture is needed Performed By: #### 3 0965 ####[facility] [facility] [place] [address], [facility] Bilirubin Ql (U) Negative Normal NEGATIVE The [facility] Comment on above: Order Comment: No: D o not add to previous drawCriteria for reflexing a culture was not met. Please call the lab [id number] within 24 hours of collection time if culture is needed Performed By: #### 3 0965 ####[facility] [place] [address], [facility] Color (U) YELLOW Normal YELLOW The [facility] Comment on above: Order Comment: No: D o not add to previous drawCriteria for reflexing a culture was not met. Please call the lab [id number] within 24 hours of collection time if culture is needed Performed By: #### 3 [id number] ####[facility] [facility] [place] [address], [facility] Glucose Ql (U) Negative Normal NEGATIVE The [facility] Comment on above: Order Comment: No: D o not add to previous drawCriteria for reflexing a culture was not met. Please call the lab [id number] within 24 hours of collection time if culture is needed Performed By: #### 3 [id number] ####[facility] [facility] [place] [address], [facility] Hemoglobin Ql (U) Negative Normal NEGATIVE The [facility] Comment on above: Order Comment: No: D o not add to previous drawCriteria for reflexing a culture was not met. Please call the lab [id number] within 24 hours of collection time if culture is needed Performed By: #### 3 0965 ####[facility] [facility] [place] [address], [facility] KETONE Negative Normal NEGATIVE The [facility] Comment on above: Order Comment: No: D o not add to previous drawCriteria for reflexing a culture was not met. Please call the lab [id number] within 24 hours of collection time if culture is needed Performed By: #### 3 0965 ####[facility] [place] [address] LEUK JESS Negative Normal NEGATIVE The [facility] Comment on above: Order Comment: No: D o not add to previous drawCriteria for reflexing a culture was not met. Please call the lab [id number] within 24 hours of collection time if culture is needed Performed By: #### 3 0965 ####[facility] MICRO NOT DONE Normal The [facility] Comment on above: Order Comment: No: D o not add to previous drawCriteria for reflexing a culture was not met. Please call the lab [id number] within 24 hours of collection time if culture is needed Result Comment: Micr oscopics not performed on urines withnegative chemical reactions unless requested in original order Performed By: #### 3 0965 ####[place] [address], [facility] Nitrite Ql (U) Negative Normal NEGATIVE The [facility] Comment on above: Order Comment: No: D o not add to previous drawCriteria for reflexing a culture was not met. Please call the lab [id number] within 24 hours of collection time if culture is needed Performed By: #### 3 0965 ####[facility] pH (U) 6.0 [pH] Normal 5.0-8.0 [facility] Comment on above: Order Comment: No: D o not add to previous drawCriteria for reflexing a culture was not met. Please call the lab [id number] within 24 hours of collection time if culture is needed Performed By: #### 3 0965 ####[facility] Protein Ql (U) Negative Normal NEGATIVE The [facility] Comment on above: Order Comment: No: D o not add to previous drawCriteria for reflexing a culture was not met. Please call the lab [id number] within 24 hours of collection time if culture is needed Performed By: #### 3 0965 ####[facility] SPEC GRAV 1.019 Normal 1.015-1.020 The [facility] Comment on above: Order Comment: No: D o not add to previous drawCriteria for reflexing a culture was not met. Please call the lab [id number] within 24 hours of collection time if culture is needed Performed By: #### 3 0965 ####[facility] [place] [address] Vital Signs Date Time Vital Sign Value Performing Clinician Faci lity 09-27-2024 14:06-0500 Body height 179.1 cm Teressa Sierra SEE SUPERVISOR Work Phone: [facility] 09-27-2024 14:06-0500 Body mass index (BMI) [Ratio] 45.83 kg/m2 Teressa Sierra SEE SUPERVISOR Work Phone: [facility] 09-27-2024 14:06-0500 Body temperature 97.81 [degF] Teressa Sierra SEE SUPERVISOR Work Phone: [facility] 09-27-2024 14:06-0500 Body weight 146.97 kg Teressa Aichholz SEE SUPERVISOR Work Phone: [facility] 09-27-2024 14:06-0500 Diastolic blood pressure 74 mm[Hg] Teressa Aichholz SEE SUPERVISOR Work Phone: [facility] 09-27-2024 14:06-0500 Heart rate 83 /min Teressa Aichholz SEE SUPERVISOR Work Phone: [facility] 09-27-2024 14:06-0500 Respiratory rate 24 /min Teressa Aichholz SEE SUPERVISOR Work Phone: [facility] 09-27-2024 14:06-0500 SaO2% (BldA) [Mass fraction] 92 % Teressa Aichholz SEE SUPERVISOR Work Phone: [facility] 09-27-2024 14:06-0500 Systolic blood pressure 132 mm[Hg] Teressa Aichholz SEE SUPERVISOR Work Phone: [facility] 06-01-2024 15:17-0400 Body height 179.1 cm Teressa Aichholz SEE SUPERVISOR Work Phone: [facility] 06-01-2024 15:17-0400 Body mass index (BMI) [Ratio] 45.52 kg/m2 Teressa Aichholz SEE SUPERVISOR Work Phone: [facility] 06-01-2024 15:17-0400 Body temperature 98.49 [degF] Teressa Aichholz SEE SUPERVISOR Work Phone: [facility] 06-01-2024 15:17-0400 Body weight 145.97 kg Teressa Aichholz SEE SUPERVISOR Work Phone: [facility] 06-01-2024 15:17-0400 Diastolic blood pressure 68 mm[Hg] Teressa Aichholz SEE SUPERVISOR Work Phone: [facility] 06-01-2024 15:17-0400 Heart rate 62 /min Teressa Aichholz SEE SUPERVISOR Work Phone: [facility] 06-01-2024 15:17-0400 Respiratory rate 18 /min Teressa Samanthajoeangel SEE SUPERVISOR Work Phone: [facility] 06-01-2024 15:17-0400 SaO2% (BldA) [Mass fraction] 95 % Teressa Samanthajoeangel SEE SUPERVISOR Work Phone: [facility] 06-01-2024 15:17-0400 Systolic blood pressure 122 mm[Hg] Teressa Mariela SEE SUPERVISOR Work Phone: [facility] Healthcare Encounters Encounter Date Encounter Type Care Provider Facility Start: 10-11-2024 End: 10-11-2024 Clinisync Result Encounter Generic External Data Provider [facility] External Department Unsolicited Start: 10-11-2024 End: 10-11-2024 Clinisync Result Encounter Generic External Data Provider [facility] External Department Unsolicited Start: 10-04-2024 End: 10-04-2024 Refill Teressa Sierra SEE SUPERVISOR Work Phone: [facility] Comment on above: Type 2 diabetes jennie itus without complications ([facility]) Start: 10-03-2024 End: 10-03-2024 [facility] Start: 09-27-2024 End: 09-27-2024 Bamboo flowsheet Teressa Sierra SEE SUPERVISOR Work Phone: [facility] Start: 09-27-2024 End: 09-27-2024 Bamboo flowsheet Teressa Mariela SEE SUPERVISOR Work Phone: [facility] Start: 09-27-2024 End: 09-27-2024 Office outpatient visit 25 minutes Teressa Sierra SEE SUPERVISOR Work Phone: [facility] Comment on above: Obstructive sleep ap rohit syndrome (Primary Dx); Type 2 diabetes mellitus with diabetic chronic kidney disease ([facility]); 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 (CODE) ([facility]); Morbid (severe) obesity due to excess calories ([facility]); Body mass index (BMI) 45.0-49.9, adult ([facility]); Type 2 diabetes mellitus with diabetic peripheral angiopathy without gangrene ([facility]); Other ventricular tachycardia ([facility]); Chronic obstructive pulmonary disease, unspecified ([facility]); Chronic diastolic (congestive) heart failure ([facility]); Atherosclerosis of [place] coronary artery of [place] heart without angina pectoris ([facility]); Essential hypertension; Chronic kidney disease, stage 3a ([facility]) ([facility]); Bilateral lower extremity edema; Stasis edema with ulcer of both lower extremities ([facility]); Mixed hyperlipidemia ([facility]); Stasis dermatitis 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 hypertension ([facility]); Coronary artery disease involving [place] coronary artery of [place] heart without angina pectoris ([facility]) Start: 09-27-2024 End: 09-27-2024 ambulatory TERESSA AICHHOLZ Not Available Start: 09-10-2024 End: 09-11-2024 Refill Teressa Aichholz SEE SUPERVISOR Work Phone: [facility] Comment on above: Localized edema Start: 09-08-2024 End: 09-08-2024 Refill Teressa Aichholz SEE SUPERVISOR Work Phone: [facility] Comment on above: Type 2 diabetes jennie itus without complication, without long- term current use of insulin ([facility]) Start: 08-04-2024 End: 08-04-2024 Clinisync Result Encounter Teressa Aichholz SEE SUPERVISOR Work Phone: [facility] External Department Unsolicited Start: 08-04-2024 End: 08-04-2024 Clinisync Result Encounter Teressa Aichholz SEE SUPERVISOR Work Phone: [facility] External Department Unsolicited Start: 07-13-2024 End: 07-13-2024 Refill Teressa Aichholz SEE SUPERVISOR Work Phone: [facility] Comment on above: Anemia, unspecified Start: 06-20-2024 End: 06-20-2024 Orders Only Treessa Aichholz SEE SUPERVISOR Work Phone: [facility] Comment on above: Chronic kidney disea se, stage 3a (HCC) (CMS/HCC) (Primary Dx) Start: 06-20-2024 End: 06-21-2024 Refill Teressa Sierra NP Work Phone: [facility] Comment on above: Type 2 diabetes jennie itus without complications (CMS/HCC) Start: 06-17-2024 End: 06-17-2024 Refill Teressa Sierra SEE SUPERVISOR Work Phone: [facility] Comment on above: Bilateral primary os teoarthritis of knee; Atherosclerotic heart disease of [place] coronary artery without angina pectoris (CMS/HCC) Start: 06-16-2024 End: 06-16-2024 Clinisync Result Encounter Teressa Sierra NP Work Phone: [facility] External Department Unsolicited Start: 06-16-2024 End: 06-16-2024 Clinisync Result Encounter Teressa Sierra NP Work Phone: [facility] External Department Unsolicited Start: 06-13-2024 End: 06-13-2024 Refill Teressa Sierra SEE SUPERVISOR Work Phone: [facility] Comment on above: Coronary artery dise ase involving [place] coronary artery of [place] heart without angina pectoris (CMS/HCC) (Primary Dx); Atherosclerosis of [place] coronary artery of [place] heart without angina pectoris (CMS/HCC); Mixed hyperlipidemia (CMS/HCC) Start: 06-01-2024 End: 06-01-2024 Office outpatient visit 25 minutes Teressa Sierra NP Work Phone: [facility] Comment on above: Type 2 diabetes jennie itus without complication, without long- term current use of insulin (CMS/HCC) (Primary Dx); Chronic kidney disease, stage 3a (HCC) (CMS/HCC); Mixed hyperlipidemia (CMS/HCC); Coronary artery disease involving [place] coronary artery of [place] heart without angina pectoris (CMS/HCC); Essential hypertension; Prostate cancer screening; Obstructive sleep apnea syndrome; Chronic obstructive pulmonary disease, unspecified COPD type (CMS/HCC); Venous stasis of both lower extremities; Morbid (severe) obesity due to excess calories (CMS/HCC); Body mass index (BMI) 45.0-49.9, adult (CMS/HCC) Start: 06-01-2024 End: 06-01-2024 ambulatory TERESSA AICHHOLZ Not Available Start: 06-01-2024 End: 06-01-2024 Bamboo flowsheet Teressa Aicbeauz SEE SUPERVISOR Work Phone: [facility] Start: 06-01-2024 End: 06-01-2024 Bamboo flowsheet Teressa Aichholz SEE SUPERVISOR Work Phone: [facility] Start: 03-14-2024 End: 03-14-2024 ambulatory TERESSA AICHHOLZ Not Available Start: 03-09-2024 End: 03-09-2024 ambulatory [facility] Start: 12-17-2023 End: 12-17-2023 ambulatory [facility] Start: 12-14-2023 End: 12-14-2023 ambulatory TERESSA AICHHOLZ Not Available Start: 12-14-2023 Patient encounter procedure Teressa Aichholz SEE SUPERVISOR Work Phone: [facility] Healthcare Start: 05-18-2023 End: 05-18-2023 ambulatory Mal Barnes Facility:[facility] Start: 09-03-2022 End: 09-03-2022 ambulatory Moshe Garcia Other [facility] Other Start: 09-03-2022 Office outpatient ne w 45 minutes Moshe Garcia [facility] Start: 08-18-2022 End: 08-20-2022 Evaluation and [...] Evaluation and management of inpatient MAL MOLLY Facility:[facility] Procedures Date Procedure Procedure Detail Performing Clinician Start: 10-11-2024 ALL BASIC METABOLIC PANEL Generic External Data Provider Start: 08-04-2024 ALL CBC WITH AUTO DIFF Teressa Aichholz SEE SUPERVISOR Work Phone: Start: 06-16-2024 ALL CBC WITH AUTO DIFF Teressa Aichholz SEE SUPERVISOR Work Phone: Start: 07-03-2021 End: 09-27-2024 History of coronary artery bypass grafting History of coronary artery bypass surgery Teressa Aichholz SEE SUPERVISOR Work Phone: Start: 05-24-2021 Antibody screen MAL BARNES Comment on above: Performed By: #### 6 [id number] ####[facility] Start: 05-23-2021 EXCISION OF STERNUM, OPEN [...] WALL AKANKSHA UP Start: 05-20-2021 Antibody screen MLA BARNES Comment on above: Performed By: #### 6 [id number] ####[facility] [place] [address], [facility] Start: 05-16-2021 EXCISION OF CHEST SK IN, EXTERNAL APPROACH AKANKSHA UP Start: 05-16-2021 RESPIRATORY VENTILAT ION, LESS THAN 24 CONSECUTIVE HOURS GUDELIA BARNES Start: 05-15-2021 Antibody screen MAL BARNES Comment on above: Performed By: #### 6 [id number] ####[facility] Start: 04-07-2021 Antibody screen MAL BARNES Comment on above: Performed By: #### 6 [id number] ####[facility] [facility], [place] [address] [place] [address] Plan of Treatment Date Care Activity Detail Author Start: 08-24-2025 Glaucoma screening Diabetes: R etinopathy Screening [facility] Start: 06-16-2025 Urine screening for protein Diabetes: Urine Protein Screening [facility] Start: 12-19-2024 End: 12-19-2024 Patient encounter procedure 12/19/2024 4:30 PM EDT Office Visit [facility] [address] [place] [address] Teressa Sierra NP [address] [place] [phone] [facility] Start: 12-15-2024 Hemoglobin A1c measurement Diabetes: Hemoglobin A1C [facility] Healthcare Start: 12-13-2024 Medicare Annual Well ness (AWV) Medicare Annual Wellness (AWV) [facility] Healthcare Start: 09-27-2024 End: 09-27-2024 Patient encounter procedure 09/27/2024 2:00 PM EST Office Visit [facility] [address] [place] [address] Teressa Sierra NP [address] [place] [phone] Obstructive sleep apnea syndrome (Primary Dx); Type 2 diabetes mellitus with diabetic chronic kidney disease ([facility]); 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 (CODE) ([facility]); Morbid (severe) obesity due to excess calories (CMS/HCC); Body mass index (BMI) 45.0-49.9, adult (CMS/HCC); Type 2 diabetes mellitus with diabetic peripheral angiopathy without gangrene (CMS/HCC); Other ventricular tachycardia (CMS/HCC); Chronic obstructive pulmonary disease, unspecified (CMS/HCC); Chronic diastolic (congestive) heart failure (CMS/HCC); Atherosclerosis of [place] coronary artery of [place] heart without angina pectoris (CMS/HCC); Essential hypertension; Chronic kidney disease, stage 3a (HCC) (CMS/HCC); Bilateral lower extremity edema; Stasis edema with ulcer of both lower extremities (CMS/HCC); Mixed hyperlipidemia (CMS/HCC) [facility] Comment on above: Obstructive sleep ap [...] diastolic (congestive) heart failure (CMS/HCC); Atherosclerosis of [place] coronary artery of [place] heart without angina pectoris (CMS/HCC); Essential hypertension; Chronic kidney disease, stage 3a (HCC) (CMS/HCC); Bilateral lower extremity edema; Stasis edema with ulcer of both lower extremities (CMS/HCC); Mixed hyperlipidemia (CMS/HCC) Start: 09-14-2024 End: 09-14-2024 Patient encounter procedure 09/14/2024 2:00 PM EST Office Visit [facility] [address] [place] [address] Teressa Sierra NP [address] [place] [address] [facility] Start: 09-09-2024 Pneumococcal Vaccine : 65+ Years (1 of 2 - PCV) Pneumococcal Vaccine: 65+ Years (1 of 2 - PCV) [facility] Comment on above: Postponed from 05/11 (Patient Refused) Start: 09-05-2024 End: 09-05-2024 Patient encounter procedure 09/05/2024 2:00 PM EST Office Visit [facility] [address] [place] [phone] Teressa Sierra, [place] [address] [place] [phone] [facility] Start: 07-21-2024 End: 06-20-2025 CBC W Auto Differential panel - Blood CBC and differential Lab Routine Chronic kidney disease, stage 3a (HCC) (CMS/HCC) Expected: 07/21/2024 (Approximate), Expires: 06/20/2025 [facility] Work Phone: Comment on above: Expected: 07/21/2024 (Approximate), Expires: 06/20/2025 Start: 07-21-2024 End: 06-20-2025 Comprehensive metabolic 2000 panel - Serum or Plasma Comprehensive metabolic panel Lab Routine Chronic kidney disease, stage 3a (HCC) (CMS/HCC) Expected: 07/21/2024 (Approximate), Expires: 06/20/2025 [facility] Comment on above: Expected: 07/21/2024 (Approximate), Expires: 06/20/2025 Start: 06-17-2024 Hemoglobin A1c measurement Diabetes: Hemoglobin A1C [facility] Start: 06-01-2024 End: 06-01-2024 Patient encounter procedure 06/01/2024 3:00 PM EDT Office Visit [facility] [address] [place] [phone] Teressa Sierra NP [address] [place] [phone] Chronic kidney disease, stage 3a (HCC) (CMS/HCC) (Primary Dx); Type 2 diabetes mellitus without complication, without long-term current use of insulin (CMS/HCC); Mixed hyperlipidemia (CMS/HCC); Coronary artery disease involving [place] coronary artery of [place] heart without angina pectoris (CMS/HCC); Essential hypertension; Prostate cancer screening [facility] Comment on above: Chronic kidney disea se, stage 3a (HCC) (CMS/HCC) (Primary Dx); Type 2 diabetes mellitus without complication, without long-term current use of insulin (CMS/HCC); Mixed hyperlipidemia (CMS/HCC); Coronary artery disease involving [place] coronary artery of [place] heart without angina pectoris (CMS/HCC); Essential hypertension; Prostate cancer screening Start: 06-01-2024 End: 06-01-2025 CBC W Auto Differential panel - Blood CBC and differential Lab Routine Chronic kidney disease, stage 3a (HCC) (CMS/HCC) Expected: 06/01/2024 (Approximate), Expires: 06/01/2025 [facility] Work Phone: Comment on above: Expected: 06/01/2024 (Approximate), Expires: 06/01/2025 Start: 06-01-2024 End: 06-01-2025 Comprehensive metabolic 2000 panel - Serum or Plasma Comprehensive metabolic panel Lab Routine Type 2 diabetes mellitus without complication, without long-term current use of insulin (CMS/HCC) Mixed hyperlipidemia (CMS/HCC) Essential hypertension Expected: 06/01/2024 (Approximate), Expires: 06/01/2025 [facility] Comment on above: Expected: 06/01/2024 (Approximate), Expires: 06/01/2025 Start: 06-01-2024 End: 06-01-2025 Hemoglobin A1c/Hemoglobin.total in Blood Hemoglobin A1c Lab Routine Type 2 diabetes mellitus without complication, without long-term current use of insulin (CMS/HCC) Expected: 06/01/2024 (Approximate), Expires: 06/01/2025 [facility] Comment on above: Expected: 06/01/2024 (Approximate), Expires: 06/01/2025 Start: 06-01-2024 End: 06-01-2025 Lipid 1996 panel - Serum or Plasma Lipid panel Lab Routine Type 2 diabetes mellitus without complication, without long-term current use of insulin (CMS/HCC) Mixed hyperlipidemia (CMS/HCC) Expected: 06/01/2024 (Approximate), Expires: 06/01/2025 [facility] Comment on above: Expected: 06/01/2024 (Approximate), Expires: 06/01/2025 Start: 06-01-2024 End: 06-01-2025 Microalbumin/Creatinine panel in random Urine Microalbumin / creatinine, urine ratio Lab Routine Type 2 diabetes mellitus without complication, without long-term current use of insulin ([facility]) Essential hypertension Expected: 06/01/2024 (Approximate), Expires: 06/01/2025 [facility] Comment on above: Expected: 06/01/2024 (Approximate), Expires: 06/01/2025 Start: 06-01-2024 End: 06-01-2025 Prostate specific Ag [Mass/volume] in Serum or Plasma PSA Lab Routine Prostate cancer screening Expected: 06/01/2024 (Approximate), Expires: 06/01/2025 [facility] Comment on above: Expected: 06/01/2024 (Approximate), Expires: 06/01/2025 Start: 06-01-2024 End: 06-01-2025 Urinalysis complete panel - Urine Urinalysis with reflex microscopic (clean catch) Lab Routine Type 2 diabetes mellitus without complication, without long-term current use of insulin ([facility]) Essential hypertension Expected: 06/01/2024 (Approximate), Expires: 06/01/2025 [facility] Comment on above: Expected: 06/01/2024 (Approximate), Expires: 06/01/2025 Start: 05-20-2024 Urine screening for protein Diabetes: Urine Protein Screening [facility] Start: 1951 Pneumococcal Vaccine : 65+ Years (1 of 2 - PCV) Pneumococcal Vaccine: 65+ Years (1 of 2 - PCV) [facility] Payers Date Payer Category Payer Medicare [id number] 2023 Medicare (Managed Care) [id number]. [id number] 2023 Unknown [employer] [id number] 2023-Present [address] [place] [id number] 2023 Unknown [id number] 2009 Medicare MEDICARE [id number] 5 1959 Private Health Insurance [id number] 1959 Self-pay 1944 Unknown [id number] .2.647 1944 Unknown [id number] 2.16.840.1.903787.3.579 .2.593 1944 Unknown [id number] 2.16.840.1.060501.3.579 .2.593 1944 Unknown [id number] 2.16.840.1.454594.3.579 .2.593 1944 Unknown [id number] 2.16.840.1.257885.3.579 .2.593 1944 Unknown [id number] 2.16.840.1.841790.3.579 .2.593 1944 Unknown [id number] 2.16.840.1.846066.3.579 .2.593 1944 Unknown [id number] 2.16.840.1.670139.3.579 .2.593 1944 Unknown [id number] 2.16.840.1.622445.3.579 .2.593 1944 Unknown [id number] 2.16.840.1.122998.3.579 .2.593 1944 Unknown [id number] 2.16.840.1.231222.3.579 .2.1259 1944 Unknown [id number] 2.16.840.1.149772.3.579 .2.9 1944 Unknown [id number] 2.16.840.1.739305.3.579 .2.9 1944 Unknown [id number] 2.16.840.1.227916.3.579 .2.1258 Unknown [id number] 2.16.840.1.669332.3.579 .2.531 Social History Date Type Detail Facility Start: 12-14-2023 End: 09-27-2024 Sex Assigned At [facility] Start: 09-07-2023 Tobacco smoking status KYIS Ex-smoke r [facility] History of tobacco [...] to any clubs or organizations such as confucianist groups, unions, fraternal or athletic groups, or [...] Sex assigned at Not on file [facility] Medical Equipment Procedure Code Equipment Code Equipment Origin al Text Equipment Identifier Dates [id number], [id number] Start: 06-21-2024 End: 10-04-2024 Clinical Notes 10-11-2020 to 10-03-2024 Teressa Sierra NP - 09/27/2024 4:23 PM ESTSAILAJAMBJAY ROBERTO - 09/27/2024 2:00 PM Jennifer Sierra NP - 09/27/2024 2:00 PM Jennifer Sierra NP - 09/27/2024 7:14 AM ESTPatient Instructions Note Date & Type Note Facility 10-03-2024 Note [place] [facility] Subjective Arianne Mcqueen is a 79 [...] both knees Papillomatosis Sleep apnea Morbid obesity ([facility]/HCC) Venous stasis ulcer of right lower extremity ([facility]/HCC) Wound cellulitis Diabetes mellitus, type II ([facility]/HCC) penitentiary (current) use of inhaled steroids Ulcer of lower extremity ([facility]/HCC) Aortic ectasia, unspecified site ([facility]/HCC) Body mass index (BMI) 45.0-49.9, adult ([facility]) Chronic kidney disease, stage 3a ([facility]) Type 2 diabetes mellitus with diabetic chronic kidney disease ([facility]) Type 2 diabetes mellitus with diabetic peripheral angiopathy without gangrene ([facility]/HCC) 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 His initial investigation was negative. He was [...] In August 2021 he was admitted to [facility] and then transferred to [facility] due to COVID infection and large pericardial [...] revascularize right coronary (more content not included)... 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 He does not see a cake wrapper.Eye exam is not current. Hypertension This is [...] (KEFLEX) 500 mg, 2 times daily Drug [place] Unilet Lancets 33G misc 1 each, Other, [...] Diagnosis Date Anemia CAD (coronary artery disease) ([facility]) Constipation COPD (chronic obstructive pulmonary disease) ([facility]) Diabetes mellitus, type II ([facility]) Hearing decreased Heart disease Hip pain, right Hypercholesterolemia ([facility]/HCC) Hypertension ([facility]/HCC) Iron deficiency Myocardial infarction ([facility]/HCC) Osteoarthritis of both knees, unspecified osteoarthritis type [...] a year Chronic obstructive pulmonary disease, unspecified ([facility]) Current meds: trelegy inhaler and albuterol inhaler [...] carvedilol, aldactone Chronic diastolic (congestive) heart failure ([facility]/HCC) Follows with [facility] Current meds: asa, statin, b fitz, imdur, aldactone, amlodipine Atherosclerosis of [place] coronary artery of [place] heart without angina pectoris ([facility]) Current meds: asa, statin, b fitz, imdur, aldactone, Cardiology: [facility] Pat Morbid (severe) obesity due to excess calories ([facility]) Discussed with patient their BMI (actual, verses recommended). We have also discussed lifestyle modifications: attempts to perform physical activity as chronic conditions allow, also to monitor dietary intake: increasing protein/fruits/veggies and lowering carb intake (unless contraindicated). Limit sodas, juices, and sugary drinks. 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 (CODE) ([facility]) Mixed hyperlipidemia ([facility]) Continue statin Check labs yearly and prn dose chagnes Type 2 diabetes mellitus with diabetic chronic kidney disease ([facility]) Check blood sugars daily, notify if <70 [...] diastolic (congestive) heart failure (CMS/HCC) Follows with [facility] Current meds: asa, statin, b fitz, imdur, aldactone, amlodipine Associated Problem(s): Atherosclerosis of [place] coronary artery of [place] heart without angina pectoris (CMS/HCC) Current meds: asa, statin, b fitz, imdur, aldactone, Cardiology: [facility] Associated Problem(s): Chronic obstructive pulmonary disease, unspecified [...] in a year I did contact the [facility] Sleep lab ext [phone] to find out about scheduling the patient to see about an updated PAP machine: voicemail left at 16:20 on 09/27/24 documented in this encounter [facility] 09-27-2024 Instructions Teressa Sierra NP - 09/27/2024 2:00 PM EST Sleep apnea: I will call The [facility] Sleep Lab to see about getting you into see Dr Amado Wounds: continue with wound care and home health documented in this encounter [facility] 06-01-2024 History of Present illness Narrative Associated Problem(s): Diabetes mellitus, type II ([facility]) Cannot afford ozempic, although his sugars seem [...] sugars. Associated Problem(s): CAD (coronary artery disease) ([facility]) Continue current meds/dose Associated Problem(s): Essential hypertension At goal no dose changes Associated Problem(s): COPD (chronic obstructive pulmonary disease) ([facility]) Continue with dr woodruff Needs a refill of trelegy , he needs to contact them Associated Problem(s): Sleep apnea Non compliant with PAP use, machine is broke , difficulty finding DME who takes his insurance I did leave a VM on Sleep lab [facility] regarding this for them to assist Pt is seeing a automotive glass specialist for his legs. Pt had a [...] no compliance problems. Hypertensive end-organ damage includes CAD/MA and PVD. Diabetes He presents for his [...] being taken. He does not see a cake wrapper.Eye exam is current. SUBJECTIVE: MEDICATIONS: Current Outpatient [...] to assist COPD (chronic obstructive pulmonary disease) ([facility]) Continue with dr woodruff Needs a refill of trelegy , he needs to contact them CAD (coronary artery disease) ([facility]) Continue current meds/dose Diabetes mellitus, type II ([facility]) - Primary Cannot afford ozempic, although his [...] Morbid (severe) obesity due to excess calories ([facility]) Chronic kidney disease, stage 3a (HCC) ([facility]) Relevant Orders CBC and differential Body mass index (BMI) 45.0-49.9, adult ([facility]/HCC) Mixed hyperlipidemia ([facility]/HCC) Relevant Orders Comprehensive metabolic panel Lipid panel Prostate cancer screening Relevant Orders PSA documented in this encounter [facility] 03-09-2024 Note Cardiovascular Medic [facility] SUBJECTIVE Chief Complaint Patient presents [...] edema Constipation COPD (chronic obstructive pulmonary disease) (CMS/[facility]) Encounter for subsequent annual wellness visit (AWV) in Medicare patient Hearing decreased Hypercholesterolemia Hyperpigmentation Iron deficiency Lymphedema Lymphorrhea Myocardial infarction (CMS/HCC) Nicotine dependence Osteoarthritis of both knees Papillomatosis Sleep apnea Morbid obesity (CMS/HCC) Venous stasis ulcer of right lower extremity (CMS/HCC) Wound cellulitis Diabetes mellitus, type II (CMS/HCC) penitentiary (current) use of inhaled steroids Ulcer of [...] Venous stasis skin (more content not included)... [facility] 12-17-2023 Note Cardiovascular Medic [facility] SUBJECTIVE Chief Complaint Patient presents [...] le+ Pitting Edema (more content not included)... [facility] 12-17-2023 Note Patient here for 6 m [...] All other systems reviewed and are negative. [facility] 09-03-2022 Evaluation note Encounter Date Diagnosis Assessment [...] have been reviewed. Hospital notes from the [facility] from his prior admission on 08/18/2022 are [...] years ago and was just admitted to [facility] with pneumonia a couple of weeks ago. [...] as documented in the electronic medical record. [facility] Other 09-15-2022 NotePROCEDURE: XR HIP RT 2 3V WO PELVIS HISTORY: Pain in right hip joint COMPARISON: XR pelvis 09/15/2021 FINDINGS: BONES:Complete loss of the joint space with lrol-nr-eqlt articulation. Large periarticular degenerative osteophytes. No fracture, dislocation, bone lesion. SOFT TISSUES:No visible soft tissue swelling. EFFUSION:None visible. OTHER: Atherosclerotic disease. IMPRESSION: 1. 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 2. No appreciable acute abnormality. Electronically authenticated by: NOREEN KELLY Date: 2022-05-08 10:48[facility]10-28-2021 NoteThe [facility] 04-23-2021 NoteThe [facility]02-18-2021 NotePatient Outreach (COVAMN) ARIANNE MCQUEEN ([id number]) 1945 M Date Time Provider Department 10/11/20 TERRANCE CABALLERO During your visit today, we recorded the following information about you: Allergies As of Date: 10/11/2020 (No Known Allergies) Date Reviewed: 04/21/2020 Reviewed by: Willie Sotelo - Fully Assessed Order(s):SARS-COVID VACCINE 1ST DOSE APPT [[id number]] Order #: [id number] FUTURE Prescriptions as of 10/11/2020 Sig: TRAZODONE [...] [I73.9] 08/19/2012 Letter Text Encounter Status:Closed by [employer] [place] [employer] on 10/15/20[facility] Evaluation note* Diagnosis Type 2 diabetes mellitus without complication, without long-term current use of insulin (CMS/HCC)- Primary Chronic kidney disease, stage 3a (HCC) (CMS/HCC) Mixed hyperlipidemia (CMS/HCC) Mixed hyperlipidemia Coronary artery disease involving [place] coronary artery of [place] heart without angina pectoris (CMS/HCC) Essential hypertension Unspecified essential hypertension Prostate cancer screening Special screening for malignant neoplasm of prostate Obstructive sleep apnea syndrome Obstructive sleep apnea (adult) (pediatric) Chronic obstructive pulmonary disease, unspecified COPD type (CMS/HCC) Venous stasis of both lower extremities Morbid (severe) obesity due to excess calories (CMS/HCC) Body mass index (BMI) 45.0-49.9, adult (CMS/HCC) documented in this encounter [facility] HealthcareEvaluation note* Diagnosis Type 2 diabetes mellitus [...] apnea (adult) (pediatric) Coronary artery disease involving [place] coronary artery of [place] heart without angina pectoris (CMS/HCC) Essential hypertension [...] (CMS/HCC) Mixed hyperlipidemia Coronary artery disease involving [place] coronary artery of [place] heart without angina pectoris (CMS/HCC) Essential hypertension Unspecified essential hypertension Prostate cancer screening Special screening for malignant neoplasm of prostate Obstructive sleep apnea syndrome Obstructive sleep apnea (adult) (pediatric) Chronic obstructive pulmonary disease, unspecified COPD type (CMS/HCC) Venous stasis of both lower extremities Morbid (severe) obesity due to excess calories (CMS/HCC) Body mass index (BMI) 45.0-49.9, adult ([facility]) Coronary artery disease involving [place] coronary artery of [place] heart without angina pectoris (CMS/HCC)- Primary Atherosclerosis of [place] coronary artery of [place] heart without angina pectoris (CMS/HCC) Mixed hyperlipidemia (CMS/HCC) Mixed hyperlipidemia documented in this encounter [facility] HealthcareEvaluation note* Diagnosis Type 2 diabetes mellitus [...] apnea (adult) (pediatric) Coronary artery disease involving [place] coronary artery of [place] heart without angina pectoris (CMS/HCC) Essential hypertension [...] Morbid (severe) obesity due to excess calories (CMS/[facility]) Body mass index (BMI) 45.0-49.9, adult ([facility]) Type 2 diabetes mellitus with other skin [...] (CMS/HCC) Mixed hyperlipidemia Coronary artery disease involving [place] coronary artery of [place] heart without angina pectoris (CMS/HCC) Essential hypertension Unspecified essential hypertension Prostate cancer screening Special screening for malignant neoplasm of prostate Obstructive sleep apnea syndrome Obstructive sleep apnea (adult) (pediatric) Chronic obstructive pulmonary disease, unspecified COPD type (CMS/HCC) Venous stasis of both lower extremities Morbid (severe) obesity due to excess calories (CMS/[facility]) Body mass index (BMI) 45.0-49.9, adult (CMS/[facility]) Bilateral primary osteoarthritis of knee Atherosclerotic heart disease of [place] coronary artery without angina pectoris (CMS/HCC) documented in this encounter [facility] HealthcareEvaluation note* Diagnosis Type 2 diabetes mellitus [...] apnea (adult) (pediatric) Coronary artery disease involving [place] coronary artery of [place] heart without angina pectoris (CMS/HCC) Essential hypertension [...] (CMS/HCC) Chronic kidney disease, stage 3a (HCC) (CMS/[facility]) Morbid (severe) obesity due to excess calories [...] (CMS/HCC) Mixed hyperlipidemia Coronary artery disease involving [place] coronary artery of [place] heart without angina pectoris (CMS/HCC) Essential hypertension [...] (HCC) (CMS/HCC)- Primary documented in this encounter [facility] HealthcareEvaluation note* Diagnosis Type 2 diabetes mellitus [...] apnea (adult) (pediatric) Coronary artery disease involving [place] coronary artery of [place] heart without angina pectoris (CMS/HCC) Essential hypertension [...] extremity with ulcer of unspecified site (CODE) (CMS/[facility]) Aortic ectasia, unspecified site (CMS/HCC) Aortic ectasia, unspecified site Venous stasis of both lower extremities Essential hypertension Unspecified essential hypertension Type 2 diabetes mellitus without complication, without long-term current use of insulin (CMS/HCC)- Primary Chronic kidney disease, stage 3a (HCC) (CMS/HCC) Mixed hyperlipidemia (CMS/HCC) Mixed hyperlipidemia Coronary artery disease involving [place] coronary artery of [place] heart without angina pectoris (CMS/HCC) Essential hypertension [...] without complications (CMS/HCC) documented in this encounter [facility] HealthcareEvaluation note* Diagnosis Type 2 diabetes mellitus [...] apnea (adult) (pediatric) Coronary artery disease involving [place] coronary artery of [place] heart without angina pectoris (CMS/HCC) Essential hypertension Unspecified essential hypertension Type 2 diabetes mellitus without complication, without long-term current use of insulin (CMS/HCC) Chronic diastolic congestive heart failure (CMS/HCC) Venous stasis of both lower extremities Bilateral lower extremity edema Morbid obesity ([facility]) Morbid obesity Type 2 diabetes mellitus without complication, without long-term current use of insulin ([facility])- Primary Type 2 diabetes mellitus with diabetic chronic kidney disease ([facility]) Chronic kidney disease, stage 3a (HCC) ([facility]) Morbid (severe) obesity due to excess calories ([facility]) Body mass index (BMI) 45.0-49.9, adult ([facility]) Type 2 diabetes mellitus with other skin ulcer (CODE) ([facility]) Non-pressure chronic ulcer of unspecified part of unspecified lower leg with unspecified severity ([facility]) Peripheral vascular disease, unspecified ([facility]) Peripheral vascular disease, unspecified Other ventricular tachycardia ([facility]) 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 (CODE) ([facility]) Aortic ectasia, unspecified site ([facility]) Aortic ectasia, unspecified site Venous stasis of both lower extremities Essential hypertension Unspecified essential hypertension Type 2 diabetes mellitus without complication, without long-term current use of insulin ([facility])- Primary Chronic kidney disease, stage 3a (HCC) ([facility]) Mixed hyperlipidemia ([facility]) Mixed hyperlipidemia Coronary artery disease involving [place] coronary artery of [place] heart without angina pectoris ([facility]) Essential hypertension Unspecified essential hypertension Prostate cancer screening Special screening for malignant neoplasm of prostate Obstructive sleep apnea syndrome Obstructive sleep apnea (adult) (pediatric) Chronic obstructive pulmonary disease, unspecified COPD type ([facility]) Venous stasis of both lower extremities Morbid (severe) obesity due to excess calories ([facility] [facility]) Body mass index (BMI) 45.0-49.9, adult ([facility]) Anemia, unspecified documented in this encounter [facility] HealthcareEvaluation note* Diagnosis Type 2 diabetes mellitus without complication, without long-term current use of insulin ([facility])- Primary Essential hypertension Unspecified essential hypertension Varicose veins of bilateral lower extremities with pain Morbid obesity ([facility]) Morbid obesity Encounter for subsequent annual wellness visit (AWV) in Medicare patient- Primary Chronic obstructive pulmonary disease, unspecified COPD type ([facility]/HCC) Obstructive sleep apnea syndrome Obstructive sleep apnea (adult) (pediatric) Coronary artery disease involving [place] coronary artery of [place] heart without angina pectoris ([facility]) Essential hypertension Unspecified essential hypertension Type 2 diabetes mellitus without complication, without long-term current use of insulin ([facility]/HCC) Chronic diastolic congestive heart failure ([facility]) Venous stasis of both lower extremities Bilateral lower extremity edema Morbid obesity ([facility]/HCC) Morbid obesity Type 2 diabetes mellitus without complication, without long-term current use of insulin (CMS/HCC)- Primary Type 2 diabetes mellitus with diabetic chronic kidney disease (CMS/HCC) Chronic kidney disease, stage 3a (HCC) ([facility]) Morbid (severe) obesity due to excess calories ([facility]) Body mass index (BMI) 45.0-49.9, adult ([facility]) Type 2 diabetes mellitus with other skin ulcer (CODE) ([facility]) Non-pressure chronic ulcer of unspecified part of unspecified lower leg with unspecified severity ([facility]) Peripheral vascular disease, unspecified ([facility]) Peripheral vascular disease, unspecified Other ventricular tachycardia ([facility]) 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 (CODE) ([facility]) Aortic ectasia, unspecified site ([facility]) Aortic ectasia, unspecified site Venous stasis of both lower extremities Essential hypertension Unspecified essential hypertension Type 2 diabetes mellitus without complication, without long-term current use of insulin ([facility])- Primary Chronic kidney disease, stage 3a (HCC) ([facility]) Mixed hyperlipidemia ([facility]) Mixed hyperlipidemia Coronary artery disease involving [place] coronary artery of [place] heart without angina pectoris ([facility]) Essential hypertension Unspecified essential hypertension Prostate cancer screening Special screening for malignant neoplasm of prostate Obstructive sleep apnea syndrome Obstructive sleep apnea (adult) (pediatric) Chronic obstructive pulmonary disease, unspecified COPD type ([facility]/HCC) Venous stasis of both lower extremities Morbid (severe) obesity due to excess calories ([facility]) Body mass index (BMI) 45.0-49.9, adult ([facility]) Type 2 diabetes mellitus without complication, without long-term current use of insulin ([facility]) documented in this encounter [facility] HealthcareEvaluation note* Diagnosis Type 2 diabetes mellitus without complication, without long-term current use of insulin ([facility]/HCC)- Primary Essential hypertension Unspecified essential hypertension Varicose veins of bilateral lower extremities with pain Morbid obesity (CMS/[facility]) Morbid obesity Encounter for subsequent annual wellness visit (AWV) in Medicare patient- Primary Chronic obstructive pulmonary disease, unspecified COPD type (CMS/HCC) Obstructive sleep apnea syndrome Obstructive sleep apnea (adult) (pediatric) Coronary artery disease involving [place] coronary artery of [place] heart without angina pectoris (CMS/HCC) Essential hypertension Unspecified essential hypertension Type 2 diabetes mellitus without complication, without long-term current use of insulin ([facility]) Chronic diastolic congestive heart failure (CMS/[facility]) Venous stasis of both lower extremities Bilateral lower extremity edema Morbid obesity (CMS/HCC) Morbid obesity Type 2 diabetes mellitus without complication, without long-term current use of insulin ([facility])- Primary Type 2 diabetes mellitus with diabetic chronic kidney disease (CMS/[facility]) Chronic kidney disease, stage 3a (HCC) ([facility]) Morbid (severe) obesity due to excess calories ([facility]) Body mass index (BMI) 45.0-49.9, adult ([facility]) Type 2 diabetes mellitus with other skin ulcer (CODE) ([facility]) Non-pressure chronic ulcer of unspecified part of unspecified lower leg with unspecified severity ([facility]) Peripheral vascular disease, unspecified ([facility]) Peripheral vascular disease, unspecified Other ventricular tachycardia ([facility]) 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 (CODE) ([facility]) Aortic ectasia, unspecified site ([facility]) Aortic ectasia, unspecified site Venous stasis of both lower extremities Essential hypertension Unspecified essential hypertension Type 2 diabetes mellitus without complication, without long-term current use of insulin ([facility])- Primary Chronic kidney disease, stage 3a (HCC) (CMS/HCC) Mixed hyperlipidemia ([facility]) Mixed hyperlipidemia Coronary artery disease involving [place] coronary artery of [place] heart without angina pectoris ([facility]/HCC) Essential hypertension Unspecified essential hypertension Prostate cancer screening Special screening for malignant neoplasm of prostate Obstructive sleep apnea syndrome Obstructive sleep apnea (adult) (pediatric) Chronic obstructive pulmonary disease, unspecified COPD type (CMS/HCC) Venous stasis of both lower extremities Morbid (severe) obesity due to excess calories ([facility]) Body mass index (BMI) 45.0-49.9, adult ([facility]) Localized edema Edema documented in this encounter [facility] HealthcareEvaluation note* Diagnosis Type 2 diabetes mellitus without complication, without long-term current use of insulin ([facility])- Primary Essential hypertension Unspecified essential hypertension Varicose veins of bilateral lower extremities with pain Morbid obesity (CMS/HCC) Morbid obesity Encounter for subsequent annual wellness visit (AWV) in Medicare patient- Primary Chronic obstructive pulmonary disease, unspecified COPD type (CMS/HCC) Obstructive sleep apnea syndrome Obstructive sleep apnea (adult) (pediatric) Coronary artery disease involving [place] coronary artery of [place] heart without angina pectoris (CMS/HCC) Essential hypertension Unspecified essential hypertension Type 2 diabetes mellitus without complication, without long-term current use of insulin (CMS/[facility]) Chronic diastolic congestive heart failure (CMS/[facility]) Venous stasis of both lower extremities Bilateral lower extremity edema Morbid obesity (CMS/HCC) Morbid obesity Type 2 diabetes mellitus without complication, without long-term current use of insulin (CMS/HCC)- Primary Type 2 diabetes mellitus with diabetic chronic kidney disease (CMS/HCC) Chronic kidney disease, stage 3a (HCC) ([facility]) Morbid (severe) obesity due to excess calories (CMS/[facility]) Body mass index (BMI) 45.0-49.9, adult ([facility]) Type 2 diabetes mellitus with other skin ulcer (CODE) ([facility]) Non-pressure chronic ulcer of unspecified part of unspecified lower leg with unspecified severity (CMS/[facility]) Peripheral vascular disease, unspecified (CMS/[facility]) Peripheral vascular disease, unspecified Other ventricular tachycardia (CMS/[facility]) 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 (CODE) ([facility]) Aortic ectasia, unspecified site (CMS/[facility]) Aortic ectasia, unspecified site Venous stasis of both lower extremities Essential hypertension Unspecified essential hypertension Type 2 diabetes mellitus without complication, without long-term current use of insulin (CMS/HCC)- Primary Chronic kidney disease, stage 3a (HCC) (CMS/HCC) Mixed hyperlipidemia (CMS/HCC) Mixed hyperlipidemia Coronary artery disease involving [place] coronary artery of [place] heart without angina pectoris (CMS/HCC) Essential hypertension Unspecified essential hypertension Prostate cancer screening Special screening for malignant neoplasm of prostate Obstructive sleep apnea syndrome Obstructive sleep apnea (adult) (pediatric) Chronic obstructive pulmonary disease, unspecified COPD type (CMS/HCC) Venous stasis of both lower extremities Morbid (severe) obesity due to excess calories (CMS/[facility]) Body mass index (BMI) 45.0-49.9, adult ([facility]) Obstructive sleep apnea syndrome- Primary Obstructive sleep apnea (adult) (pediatric) Type 2 diabetes mellitus with diabetic chronic kidney disease (CMS/HCC) 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 (CODE) (CMS/HCC) Morbid (severe) obesity due to excess calories (CMS/HCC) Body mass index (BMI) 45.0-49.9, adult ([facility]) Type 2 diabetes mellitus with diabetic peripheral angiopathy without gangrene (CMS/HCC) Other ventricular tachycardia (CMS/HCC) Chronic obstructive pulmonary disease, unspecified (CMS/HCC) Chronic diastolic (congestive) heart failure (CMS/HCC) Atherosclerosis of [place] coronary artery of [place] heart without angina pectoris (CMS/HCC) Essential hypertension Unspecified essential hypertension Chronic kidney disease, stage 3a (HCC) (CMS/HCC) Bilateral lower extremity edema Stasis edema with ulcer of both lower extremities (CMS/HCC) Mixed hyperlipidemia (CMS/HCC) Mixed hyperlipidemia Stasis dermatitis 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 hypertension (CMS/HCC) Coronary artery disease involving [place] coronary artery of [place] heart without angina pectoris (CMS/HCC) documented in this encounter [facility] HealthcareEvaluation note* Diagnosis Type 2 diabetes mellitus without complication, without long-term current use of insulin (CMS/[facility])- Primary Essential hypertension Unspecified essential hypertension Varicose veins of bilateral lower extremities with pain Morbid obesity (CMS/[facility]) Morbid obesity Encounter for subsequent annual wellness visit (AWV) in Medicare patient- Primary Chronic obstructive pulmonary disease, unspecified COPD type (CMS/HCC) Obstructive sleep apnea syndrome Obstructive sleep apnea (adult) (pediatric) Coronary artery disease involving [place] coronary artery of [place] heart without angina pectoris (CMS/HCC) Essential hypertension [...] (CMS/HCC) Body mass index (BMI) 45.0-49.9, adult ([facility]) Type 2 diabetes mellitus with other skin ulcer (CODE) (CMS/[facility]) Non-pressure chronic ulcer of unspecified part of [...] (CMS/HCC) Mixed hyperlipidemia Coronary artery disease involving [place] coronary artery of [place] heart without angina pectoris (CMS/HCC) Essential hypertension [...] diastolic (congestive) heart failure (CMS/HCC) Atherosclerosis of [place] coronary artery of [place] heart without angina pectoris (CMS/HCC) Essential hypertension Unspecified essential hypertension Chronic kidney disease, stage 3a (HCC) (CMS/HCC) Bilateral lower extremity edema Stasis edema with ulcer of both lower extremities (CMS/HCC) Mixed hyperlipidemia (CMS/HCC) Mixed hyperlipidemia Stasis dermatitis 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 hypertension (CMS/HCC) Coronary artery disease involving [place] coronary artery of [place] heart without angina pectoris (CMS/HCC) Type 2 diabetes mellitus without complications (CMS/HCC) documented in this encounter [facility] Narrative - Reported* Type Description Date Medical History diabetes mallitus Medical History HTN Surgical History knee replacement 2010 Spine Pain Management Other Summary Purpose Family History No Family [...] section and content) DATE CREATED AUTHOR 09/01/2021 [facility] DATE CREATED AUTHOR AUTHOR'S ORGANIZ ATION 04/06/2022 [facility] DATE CREATED AUTHOR AUTHOR'S ORGANIZ ATION 11/04/2022 [facility] DATE CREATED AUTHOR AUTHOR'S ORGANIZ ATION 11/12/2023 [facility] DATE CREATED AUTHOR AUTHOR'S ORGANIZ ATION 09/29/2024 [facility] EPIC DATE CREATED AUTHOR AUTHOR'S ORGANIZ ATION 10/05/2024 [facility] REASON FOR VISIT (unrecogniz ed section and content) Reason Onset Date Comments Med Refill 06/13/2024 Reason Comments Med Refill Reason Comments Diabetes Care Teams (unrecognized sec tion and content) Production Controller Relationship Specialty Start Date End Date Mal Barnes MD [address], [place] [id number] PCP - External PCP Family Medicine 04/24/23 Gilberto Stockton MD [address] [place] [address] PCP - Devoted 08/24/23 Gilberto Stockton MD [address] [place] [address] PCP - General Family Medicine 03/09/24 Teressa Sierra NP [address] [place] [phone] Nurse Practitioner Family Medicine 09/09/23 Production Controller Relationship Specialty Start Date End Date Mal Barnes MD [address] [facility] [place] [address] PCP - External PCP Family Medicine 04/24/23 Gilberto Stockton MD [address] [place] [phone] PCP - Devoted 08/24/23 Gilberto Stockton MD [address] [place] [phone] PCP - General Family Medicine 03/09/24 Teressa Sierra NP [address] [place] [phone] Nurse Practitioner Family [facility] 09/09/23 Production Controller Relationship Specialty Start Date End Date Mal Barnes MD [address] [facility] [place] [address] PCP - External PCP Family Medicine 04/24/23 Gilberto Stockton MD [address] [place] [phone] PCP - Devoted 08/24/23 Gilberto Stockton MD [address] [place] [phone] PCP - General Family Medicine 03/09/24 Teressa Sierra NP [address] [place] [phone] Nurse Practitioner Family Medicine 09/09/23 Production Controller Relationship Specialty Start Date End Date Mal Barnes MD [address] [facility] [place] [address] PCP - External PCP Family Medicine 04/24/23 Gilberto Stockton MD [address] [place] [phone] PCP - Devoted 08/24/23 Gilberto Stockton MD [address] [place] [phone] PCP - General Family Medicine 03/09/24 Teressa Sierra NP [address] [place] [phone] Nurse Practitioner Family Medicine 09/09/23 Production Controller Relationship Specialty Start Date End Date Mal Barnes MD [address] [facility], [place] [phone] PCP - External PCP Family Medicine 04/24/23 Gilberto Stockton MD [address] [place] [phone] PCP - Devoted 08/24/23 Gilberto Stockton MD [address] [place] [phone] PCP - General Family Medicine 03/09/24 Teressa Sierra NP [address] [place] [phone] Nurse Practitioner Family Medicine 09/09/23 Production Controller Relationship Specialty Start Date End Date Mal Barnes MD [address] [facility] [place] [address] PCP - External PCP Family Medicine 04/24/23 Gilberto Stockton MD [address] [place] [phone] PCP - Devoted 08/24/23 Gilberto Stockton MD [address] [place] [phone] PCP - General Family Medicine 03/09/24 Teressa Sierra NP [address] [place] [phone] Nurse Practitioner Family Medicine 09/09/23 Production Controller Relationship Specialty Start Date End Date Mal Barnes MD [address], [place] [phone] PCP - External PCP Family Medicine 04/24/23 Gilberto Stockton MD [address] [place] [phone] PCP - Devoted 08/24/23 08/23/24 Gilberto Stockton MD [address] [place] [phone] PCP - General Family Medicine 03/09/24 Teressa Sierra NP [address] [place] [phone] Nurse Practitioner Family Medicine 09/09/23 Production Controller Relationship Specialty Start Date End Date Mal Barnes MD [address] [facility] [place] [address] PCP - External PCP Family Medicine 04/24/23 Gilberto Stockton MD [address] [place] [phone] PCP - Devoted 08/24/23 08/23/24 Gilberto Stockton MD [address] [place] [phone] PCP - General Family Medicine 03/09/24 Teressa Sierra NP [address] [place] [phone] Nurse Practitioner Family Medicine 09/09/23 Production Controller Relationship Specialty Start Date End Date Mal Barnes MD [address] [facility] [place] [address] PCP - External PCP Family Medicine 04/24/23 Gilberto Stockton MD [address] [place] [phone] PCP - General Family Medicine 03/09/24 Teressa Sierra NP [address] [place] [phone] Nurse Practitioner Family Medicine 09/09/23 Production Controller Relationship Specialty Start Date End Date Mal Barnes MD [address] [facility] [place] [address] PCP - External PCP Family Medicine 04/24/23 Gilberto Stockton MD [address] [place] [phone] PCP - General Family Medicine 03/09/24 Teressa Sierra NP [address] [place] [phone] Nurse Practitioner Family Medicine 09/09/23 Production Controller Relationship Specialty Start Date End Date Mal Barnes MD [address] [place] [address] PCP - External PCP Family Medicine 04/24/23 Gilberto Stockton MD [address] [place] [phone] PCP - General Family Medicine 03/09/24 Teressa Sierra NP [address] [place] [phone] Nurse Practitioner Family Medicine 09/09/23 Production Controller Relationship Specialty Start Date End Date Mal Barnes MD [address] [place] [address] PCP - External PCP Family Medicine 04/24/23 Gilberto Stockton MD [address] [place] [phone] PCP - General Family Medicine 03/09/24 Teressa Sierra NP [address] [place] [phone] Nurse Practitioner Family Medicine 09/09/23 Production Controller Relationship Specialty Start Date End Date Mal Barnes MD [address] [place] [address] PCP - External PCP Family Medicine 04/24/23 Gilberto Stockton MD [address] [place] [phone] PCP - General Family Medicine 03/09/24 Teressa Sierra NP [address] [place] [phone] Nurse Practitioner [facility] 09/09/23 Production Controller Relationship Specialty Start Date End Date Mal Barnes MD [address] [place] [address] PCP - External PCP Family Medicine 04/24/23 Gilberto Stockton MD [address] [place] [phone] PCP - General Family Medicine 03/09/24 Gilberto Stockton MD [address] [place] [phone] PCP - Medical [facility] 08/24/2408/23 Teressa Sierra NP [address] [place] [phone] Nurse Practitioner Family Medicine 09/09/23 FOR RECORDS [...] BE BASED ON THE PRIMARY CLINICAL RECORDS. [facility]. provides no warranty or guarantee of the accuracy or completeness of information in this document.
[2024-12-04 16:14] VITALS: BP 168/83; PULSE 75; TEMP 36.7; O2SAT 93; BMI 47.3
--- NOTE | 2024-12-04 16:28 | ED_ITS ---
HPI HPI - General Adult General Chief complaint: Extremity Problem, Nontraumatic Stated complaint: SWOLLEN TESTICLES Time Seen by Provider: 12/04/24 16:27 Source: patient Mode of arrival: walk-in History of Present Illness HPI narrative: Patient is a 79-year-old male who is presenting to the ER with chief complaint of diffuse swelling to patient's scrotum. Patient has no redness, erythema, signs of cellulitis. Patient states that he cannot find his penis secondary to the swelling. I have lost my penis patient has no significant suprapubic pain, pressure, or distention. Patient is able to urinate and dribble, stating that he can collect some of the urine and some of it is dribbling and needs to clean himself up. He has no other abdominal pain, nausea or vomiting. Patient does have chronic swelling to lower extremity. Patient has not had swelling to his scrotum before. Patient does take Lasix 40 mg once a day. No urinary frequency urgency or burning. There is no pain to his testicles or scrotum. Patient just has diffuse swelling to the scrotal wall. All systems are negative except as noted/marked. All systems reviewed and otherwise negative. Nurses note and vital signs reviewed and patient is not hypoxic. General: The patient appears well and in no apparent distress. Patient is resting comfortably on cart. Patient is not toxic, lethargic, or listless Skin: Warm, dry, no pallor noted. There is no rash noted. No petechiae, purpura. Head: Normocephalic, atraumatic Eye: Normal conjunctiva, no drainage, EOMI. PERRL Ears, Nose, Mouth, and Throat: oral mucosa is moist. Nares patent. Mouth without vesicles. Cardiovascular: Regular Rate and Rhythm, no murmur, gallop, rub Respiratory: Patient is in no distress, no accessory muscle use, lungs are clear to auscultation, no wheezing, rales or rhonchi Back: non-tender, no CVA tenderness bilaterally to percussion. No CT LS midline pain GI: no tenderness to palpation, no masses appreciated. No rebound, guarding, or rigidity noted. No distention; soft, obese, : Patient glans of his penis and shaft of his penis is not easily visualized. Patient has no tenderness to palpation to bilateral testicles, patient does have diffuse scrotal swelling, edema, But no redness, crepitus, erythema, cellulitis, no signs of any type of acute infection or fournegie gangrene. Musculoskeletal: Patient has full range of motion of all of the extremities, no motor, sensory, or focal neurological deficits. Patient has chronic lymphedema to bilateral lower extremities, 2+ pitting edema, no unilateral swelling. No redness, erythema, mild signs of venous stasis Neurological: A&O x4, normal speech Psychiatric: Cooperative Related Data Allergies Allergy/AdvReac Type Severity Reaction Status Date / Time No Known Drug Allergies Allergy Verified 12/04/24 16:21 Opioid HPI Opioid Management Most Recent Opioid Data: No Data to Display Exam Constitutional Vital Signs, click to edit/add: Last Vital Signs Temp 98.0 F 12/04/24 16:14 Pulse 68 12/04/24 19:17 Resp 20 12/04/24 19:17 BP 180/71 H 12/04/24 19:17 Pulse Ox 95 12/04/24 19:17 O2 Del Method Room Air 12/04/24 16:14 Course Vital Signs Vital signs: Vital Signs Temperature 98.0 F 12/04/24 16:14 Pulse Rate 75 12/04/24 16:14 Respiratory Rate 20 12/04/24 16:14 Blood Pressure 168/83 H 12/04/24 16:14 Pulse Oximetry 93 L 12/04/24 16:14 Oxygen Delivery Method Room Air 12/04/24 16:14 Temperature 98.0 F 12/04/24 16:14 Pulse Rate 68 12/04/24 19:17 Respiratory Rate 20 12/04/24 19:17 Blood Pressure 180/71 H 12/04/24 19:17 Pulse Oximetry 95 12/04/24 19:17 Oxygen Delivery Method Room Air 12/04/24 16:14 Medical Decision Making MDM Narrative Medical decision making narrative: Patient seen and examined: Patient will have urine sample done if able to obtain along with ultrasound. Differential diagnosis includes but is not limited to: Lymphedema, epididymitis, testicular pain, cystitis, cellulitis, UTI, abscess Diagnostics and management: Patient will have laboratory studies Relevant laboratory interpretation: Urine shows no acute signs of infection. Radiological studies: Please see the formal radiological report. Ultrasound of scrotum shows no acute signs of infection or torsion. To the official report Reevaluation: We were able to obtain urine sample with Austin RN, Nidia RN, and ANJEL training nurse. Urine was obtained, no acute signs of infection. Shared decision making: I discussed with the patient the necessary laboratory findings and radiological findings. Social barriers to healthcare: There are no food insecurities, there is no issue with transportation, there are no insurance barriers. Disposition: I discussed with the patient on treatment of scrotal edema. He has no signs of infection. No erythema, cellulitis, crepitus, no signs of Mabel's gangrene, cellulitis, or infection. Patient's urine shows no acute signs of infection. Patient will double his Lasix dose today, Thursday and Thursday. Patient was referred to urology. 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 No questions at discharge Lab Data Labs: Lab Results 12/04/24 Range/Units 18:37 Urine Color Yellow (YELLOW) Urine Clarity Clear (CLEAR) Urine pH 6.0 (5.0-9.0) Ur Specific [place] 1.020 (1.005-1.025) Urine Protein Negative (NEG/TRACE) mg/dL Urine Glucose (UA) Negative (NEGATIVE) mg/dL Urine Ketones Negative (NEGATIVE) mg/dL Urine Occult Blood Negative (NEGATIVE) Urine Nitrite Negative (NEGATIVE) Urine Bilirubin Negative (NEGATIVE) Urine Urobilinogen 4.0 A (0.2-1.0) EU/dL Ur Leukocyte Esterase Negative (NEGATIVE) Discharge Plan Discharge Chief Complaint: Extremity Problem, Nontraumatic Clinical Impression: Scrotal edema Patient Disposition: Home, Self-Care Time of Disposition Decision: 18:53 Condition: Fair Print Language: Tunisian Instructions: Edema (ED) Additional Instructions: Take an extra Lasix pill today, Thursday, Thursday Follow-up with urology for scrotal edema and swelling. Follow-up with your PCP and also cardiology with Dr. Dunaway for help with scrotal edema and swelling. Your urine shows no signs of infection Referrals: Thom Hammond MD [Physician] - 1 week Teressa Sierra NP [Primary Care Provider] - 1 week Discharge Date/Time: 12/04/24 19:24
[2024-12-04 18:44] LABS: Bilirubin Urine NEGATIVE (NEGATIVE); Blood Urine NEGATIVE (NEGATIVE); Clarity Urine CLEAR (CLEAR); Color Urine YELLOW (YELLOW); Glucose Urine UA NEGATIVE (NEGATIVE); Ketones Urine NEGATIVE (NEGATIVE); Leukocyte Esterase Urine NEGATIVE (NEGATIVE); Nitrite Urine NEGATIVE (NEGATIVE); Protein Urine NEGATIVE (NEG/TRACE)
[2024-12-04 18:45] LABS: Urine Microscopic Indicated NO
[2024-12-04 19:17] VITALS: BP 180/71; PULSE 68; O2SAT 95
== END 2024-12-04 19:24 | disposition home or self-care (01) ==
PROVIDERS: Emergency Provider Emergency Medicine; PCP Nurse Practitioner
DX: N50.89 Other specified disorders of the male genital organs (principal)
CPT/HCPCS: 76870; 81003; 93976; 99284

== ENCOUNTER 2024-12-06 14:44 | Outpatient (OUT) | payer MEDICARE, SELFPAY | END 2024-12-06 14:45 | disposition home or self-care (01) | LOC: WC 14:44 | PROVIDERS: PCP Nurse Practitioner; Visit Provider Physician Assistant | DX: I87.311 Chronic venous hypertension (idiopathic) with ulcer of right lower extremity (principal); L97.218 Non-pressure chronic ulcer of right calf with other specified severity | CPT/HCPCS: 29580 ==

== ENCOUNTER 2024-12-30 16:45 | Outpatient (OUT) | payer MEDICARE, SELFPAY ==
--- OUTSIDE RECORDS SUMMARY | 2024-12-30 16:53 | XMS_ITS | CCD ---
Author Organization [facility] Care Team Providers Care Flight Line Service Attendant Name Role Phone MAL BARNES Primary Care Unavailable PAY, ROBIN Referring Unavailable MASROOR, GUDELIA Admitting Unavailable MASROOR, GUDELIA Attending Unavailable AKANKSHA UP Surgeon Unavailable MO Procedure Practitioner Unavailab le MO Procedure Practitioner Unavailab le MOLLY, GUDELIA Surgeon [...] Admitting Unavailable HOUSE, DR MENEZES Attending Unavailable SEFFNER, DR MENEZES Primary Care Unavailable MOLLY, DR MENEZES Consulting Unavailable ROBIN, DR NOREEN Oneill Consulting Unavailable MOUKARBEL, DR DOMINIQUE Admitting Unavailable MOUKARBEL, DR DOMINIQUE Attending Unavailable HOUSE, DR MENEZES Primary Care Unavailable MOUKARBEL, DR DOMINIQUE Consulting Unavailable MOUKARBEL, DR DOMINIQUE Admitting Unavailable MOUKARBEL, DR DOMINIQUE Attending Unavailable SEFFNER, DR MENEZES Primary Care Unavailable HEDRICK, DR JOHANA Alvarado Consulting Unavailable MOUKARBEL, DR DOMINIQUE Consulting Unavailable MOUKARBEL, DR DOMINIQUE Admitting Unavailable MARTIN, DR DOMINIQUE Attending Unavailable MOLLY, DR MENEZES Primary Care Unavailable MARTIN, DR DOMINIQUE Consulting Unavailable Molly, Mal Primary Care Unavailable Lisha Ortega Attending Unavailable Lisha Ortega Admitting Unavailable Mal Barnes MD Unavailable [phone] Gilberto Stockton MD Unavailable Mariela VALIDATION ENGINEER, Teressa Unavailable Gilberto Stockton MD Primary Care Provider Gilberto Stockton MD Unavailable CATINA SALAZAR Attending Unavailable ARIELLA GALLEGO Attending Unavailable ARIELLA GALLEGO Attending Unavailable Gilberto Stockton MD Unavailable AICHHOLZ TERESSA Attending Unavailable AICHHOLZ TERESSA Attending Unavailable AICHHOLZ TERESSA Attending Unavailable AICHAMELIA GEEA Attending Unavailable Medications Current Medications Medication Drug Class(es) Dates Sig (Normalized) Sig (Original) [id number] 200 actuat albuterol 0.09 mg/actuat metered dose inhaler (20 sources) beta2-Adrenergic Agonist take 2 puff(s) by inhalation every six hours for wheezing albuterol HFA 90 mcg/act inhaler Inhale 2 puffs every 6 (six) hours if needed for shortness of breath or wheezing Active amLODIPine 5 mg oral tablet (20 sources) Dihydropyridine Calcium Channel Fitz take 1 tablet by mouth in the morning amLODIPine (Norvasc) 5 MG tablet Take 5 mg by mouth in the morning. Active take 1 tablet by donato th every twenty-four hours amLODIPine Besylate 10 MG 1 tablet Orall y Once a day Active aspirin 81 mg chewable tablet (20 sources) Platelet Aggregation Inhibitor, Nonsteroidal Anti-inflammatory Drug ASPIRIN 81 MG chewable tablet Chew 81 mg in the morning. Active atorvastatin 40 mg oral tablet (20 sources) HMG-CoA Reductase Inhibitor Start: 024 End: 025 take 1 tablet by mouth at bedtime atorvastatin (Lipitor) 40 MG tablet Indications: Atherosclerosis of [place] coronary artery 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 pectoris (CMS/HCC) , Mixed hyperlipidemia (CMS/HCC) , 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 (CMS/HCC) Take 1 tablet (40 mg) by mouth at bedtime Take 40 mg by mouth at bedtime 90 tablet 1 09/27/2024 Active Blood Glucose Monitoring Suppl (True Metrix Air Glucose Meter) w/Device kit (20 sources) Blood Glucose Monitoring Suppl (True Metrix Air Glucose Meter) w/Device kit 1 each Daily Active Blood Glucose Monitoring Suppl (True Metrix Go Glucose Meter) w/Device kit (20 sources) Blood Glucose Monitoring Suppl (True Metrix Go Glucose Meter) w/Device kit Active carvedilol 12.5 mg oral tablet (20 sources) alpha-Adrenergic Fitz, beta-Adrenergic Fitz Start: End: take 1 tablet by mouth in the morning carvedilol (Coreg) 12.5 MG tablet Indications: 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 (CMS/HCC) Take 1 tablet (12.5 mg) by mouth in the morning and 1 tablet (12.5 mg) in the evening. Take with meals. 180 tablet 1 12/19/2024 03/19/2025 Active celecoxib 200 mg oral capsule (20 sources) Nonsteroidal Anti-inflammatory Drug Start: End: take 1 capsule by mouth once daily celecoxib (CeleBREX) 200 MG capsule Indications: Bilateral primary osteoarthritis of knee Take 1 capsule (200 mg) by mouth Daily 90 capsule 1 12/19/2024 03/19/2025 Active Start: 03-23-2024 End: 09-15-2024 take 1 [...] / vilanterol 0.025 mg/actuat dry powder inhaler (20 sources) Anticholinergic, Corticosteroid, beta2-Adrenergic Agonist Start: 12-24-2023 Trelegy Ellipta 100-62.5-25 MCG/ACT aerosol powder 1 puff by Other route Daily 12/24/2023 Active furosemide 40 mg oral tablet (9 sources) Loop Diuretic Start: 10-03-2024 take 1 tablet by mouth once daily furosemide (Lasix) 40 MG tablet Take 40 mg by mouth Daily 10/03/2024 Active take 1 tablet by donato th every twenty-four hours Furosemide 40 MG 1 tablet Orally Once a day Active glipiZIDE 5 mg oral tablet (20 sources) Sulfonylurea Start: 03-25-2024 End: 12-07-2024 take 0.5 tablet by mouth once daily glipiZIDE (Glucotrol) 5 MG tablet Indications: Type 2 diabetes mellitus without complication, without long-term current use of insulin Take 0.5 tablets (2.5 mg) by mouth Daily 45 tablet 1 09/08/2024 Active 24 hr isosorbide mononitrate 30 mg extended release oral tablet (20 sources) Nitrate Vasodilator take 1 tablet by [...] hrs Active spironolactone 25 mg oral tablet (20 sources) Aldosterone Antagonist Start: 09-11-2024 End: 12-10-2024 take 1 tablet by mouth once daily spironolactone (Aldactone) 25 MG tablet Indications: Localized edema Take 1 tablet (25 mg) by mouth Daily 90 tablet 1 09/11/2024 Active Start: 12-25-2023 take 1 tablet by donato th once daily spironolactone (Aldactone) 25 MG tablet Indications: Localized edema Take 1 tablet (25 mg) by mouth Daily 90 tablet 1 12/25/2023 Active TraZODone & Diet Manage Prod (TRAZAMINE PO) (20 sources) TraZODone & Diet Manage Prod (TRAZAMINE [...] Date Documented Date Episodic/Chronic Acute myocardial infarction (20 sources) Myocardial infarction; Translations: [Acute myocardial infarction, unspecified] Onset: 09-08-2023 09-08-2023 Chronic Aortic; peripheral; and visceral artery aneurysms (20 sources) Dilatation of aorta; Translations: [Aortic ectasia, [...] disease (20 sources) 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; Translations: [Atherosclerotic heart disease of [place] coronary artery with other forms of angina [...] Neoplasms of unspecified nature or uncertain behavior (20 sources) Monoclonal gammopathy of uncertain significance; Translations: [Monoclonal gammopathy] Onset: 08-19-2012 12-14-2023 Chronic Neoplasms of unspecified nature or uncertain behavior (11 sources) Neoplastic disease of uncertain behavior; Translations: [Neoplasm of uncertain behavior, unspecified] Onset: 12-19-2024 12-19-2024 Episodic Osteoarthritis (20 sources) Osteoarthritis of right hip joint; Translations: [Unilateral primary osteoarthritis, right hip] Onset: 2022 Chronic Other aftercare (1 source) [facility] (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; Translations: [ADMINISTRATION ASSISTANT CURRENT USE OF ASPIRIN] Onset: 08-29-2022 Episodic Other aftercare (1 source) intermediate frame tender (current) use of 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/antip latelets; Translations: [ADMINISTRATION ASSISTANT ANTITHROMBOT/ANTIPLAT LETS] Onset: 08-29-2022 Episodic Other aftercare (1 source) Other fpc (current) drug therapy; Translations: [OTH ADMINISTRATION ASSISTANT CURRENT DRUG THERAPY] Onset: 08-29-2022 Episodic Other aftercare (1 source) [facility] (current) use of oral hypoglycemic drugs; Translations: [ADMINISTRATION ASSISTANT USE ORAL HYPOGLYCEMIC DX] Onset: 08-29-2022 Episodic Other circulatory disease (1 source) Personal history of sudden cardiac arrest; Translations: [PERSONAL HISTORY SUDDEN CARD ARREST] Onset: 08-29-2022 Episodic Other connective tissue disease (1 source) History of total knee arthroplasty; Translations: [Presence of right artificial knee joint] Chronic Other diseases of veins and lymphatics (20 sources) Non-infectious disorder of lymphatics; Translations: [Other specified noninfective disorders of lymphatic vessels and lymph nodes] Onset: 12-17-2023 03-14-2024 Chronic Other diseases of veins and lymphatics (20 sources) Lymphedema; Translations: [Lymphedema, not elsewhere classified] Onset: 12-17-2023 03-14-2024 Chronic Other diseases of veins and lymphatics (13 sources) Bilateral lower limb edema; Translations: [Chronic venous hypertension (idiopathic) with ulcer of bilateral lower extremity] Onset: 09-27-2024 09-27-2024 Chronic Other diseases of veins and lymphatics (13 sources) Stasis dermatitis and venous ulcer of right lower extremity due to chronic peripheral venous hypertension; Translations: [Chronic venous hypertension (idiopathic) with ulcer and inflammation of right lower extremity] Onset: 09-27-2024 09-27-2024 Chronic Other ear and sense organ disorders (20 sources) Decreased hearing ; Translations: [Unspecified hearing [...] 45.0-49.9, adult] Onset: 03-14-2024 03-14-2024 Chronic Other skin disorders (2 sources) Epidermoid cyst; Translations: [Epidermal cyst] 12-28-2024 Episodic Peripheral and visceral atherosclerosis (20 sources) Peripheral vascular disease; Translations: [Peripheral vascular disease, unspecified] Onset: 08-19-2012 03-14-2024 Chronic Pneumonia (except that caused by tuberculosis or sexually transmitted disease) (1 source) Unspecified bacterial pneumonia; Translations: [UNSPECIFIED BACTERIAL PNEUMONIA] Onset: 08-29-2022 Episodic Residual codes; unclassified (1 source) Obstructive sleep apnea (adult) (pediatric); Translations: [OBSTRUCTIVE SLEEP APNEA] Onset: 08-29-2022 Chronic Residual codes; unclassified (20 sources) Sleep apnea; Translations: [Sleep apnea, unspecified] [...] septic shock] Onset: 08-18-2022 Episodic Substance-related disorders (20 sources) Nicotine dependence; Translations: [Nicotine dependence, unspecified, [...] Date Documented Da te Episodic/Chronic Mood disorders (20 sources) Mood disorders Onset: 12-14-2023 Resolved: 12-19-2024 12-14-2023 Nutritional deficiencies (20 sources) Iron deficiency; Translations: [Iron deficiency] Onset: 09-08-2023 09-08-2023 Episodic Other and unspecified benign neoplasm (20 sources) Benign neoplastic disease; Translations: [Benign neoplasm, unspecified site] Onset: 12-14-2023 12-14-2023 Episodic Other diseases of veins and lymphatics (20 sources) Venous insufficiency of leg; Translations: [Other specified disorders of veins] Onset: 12-14-2023 12-14-2023 Episodic Other gastrointestinal disorders (20 sources) Constipation; Translations: [Constipation, unspecified] Onset: 09-08-2023 09-08-2023 Episodic Other lower respiratory disease (20 sources) Cough; Translations: [Cough] Onset: 07-03-2021 12-14-2023 Episodic Other lower respiratory disease (20 sources) Solitary nodule of lung; Translations: [Solitary pulmonary nodule] Onset: 06-05-2023 12-14-2023 Episodic Other lower respiratory disease (2 sources) Other forms of dyspnea; Translations: [Other forms of dyspnea] Onset: 03-09-2024 Episodic Other non-traumatic joint disorders (4 sources) Pain in right hip; Translations: [PAIN IN RIGHT HIP] Onset: 05-08-2022 Episodic Other screening for suspected conditions (not mental disorders or infectious disease) (20 sources) Patient encounter status; Translations: [Encounter for screening for malignant neoplasm of prostate] Onset: 06-01-2024 06-01-2024 Episodic Nara-; endo-; and myocarditis; cardiomyopathy (except that caused by tuberculosis or sexually transmitted disease) (20 sources) Pericardial effusion (noninflammatory); Translations: [Pericardial effusion] Onset: 08-29-2021 12-14-2023 Episodic Residual codes; unclassified (20 sources) Bilateral lower limb edema; Translations: [Localized edema] Onset: 09-08-2023 09-08-2023 Episodic Residual codes; unclassified (20 sources) Edema; Translations: [Edema, unspecified] Onset: 07-03-2021 Resolved: 06-01-2024 12-14-2023 Episodic Syncope (20 sources) Syncope and collapse; Translations: [Syncope and collapse] Onset: 03-20-2021 12-14-2023 Episodic Unclassified (1 source) Other pericardial effusion (noninflammatory); Translations: [Other pericardial effusion (noninflammatory)] Onset: 10-03-2024 Varicose veins of lower extremity (20 sources) Varicose veins of lower extremity; Translations: [Varicose veins of bilateral lower extremities with pain] Onset: 09-08-2023 Resolved: 09-27-2024 09-08-2023 Episodic Results Test Name Value Interpretation Reference Range Facility No Panel Informationon 12-28 Type of biopsy: tangential Informed consent: discussed and consent obtained Informed consent comment: The risks and benefits of the biopsy were discussed. Risks include but are not limited to bleeding, infection, scarring, pain, and nerve damage. An opportunity to ask questions prior to the procedure was permitted and all questions were answered. Patient was prepped and draped in usual sterile fashion: area cleansed with alcohol. Anesthesia: the lesion was anesthetized in a standard fashion Anesthetic: 1% lidocaine w/ epinephrine 1-100,000 buffered w/ 8.4% NaHCO3 Instrument used: DermaBlade Hemostasis achieved with: electrodesiccation Outcome: patient tolerated procedure well Outcome comment: The specimen was placed in a prelabeled formalin container to be sent for pathology Post-procedure details: sterile dressing applied and wound care instructions given Post-procedure details comment: Emphasized need to contact clinic for any signs of infection, uncontrollable bleeding, or complications. Dressing type: bandage Additional details: Photo taken Amount of lidocaine used: 2.0 cc [facility] No Panel InformationOrdered By: Debora Gould on 12-28-2024 [facility] HbA1c (Bld) [Mass fraction]o n 12-19-2024 Interpretation and review of laboratory results Abnormal [facility] - Hematology and Cell countson 12-19-2024 HbA1c (Bld) [Mass fraction] 5.9 % [facility] ALL BASIC METABOLIC PANELon 10-11-2024 Anion gap [Moles/Vol] 6.7 mmol/L [facility] Calcium [Mass/Vol] 8.6 mg/dL 8.5 - 10. 1 mg/dL [facility] Chloride [Moles/Vol] 104 mmol/L 98 - 10 7 mmol/L [facility] CO2 [Moles/Vol] 30.2 mmol/L 21.0 - 32.0 mmol/L [facility] Creatinine [Mass/Vol] 1.33 mg/dL High 0.70 - 1.30 mg/dL [facility] GFR/1.73 sq M.predicted CKD-EPI (S/P/Bld) [Vol rate/Area] >60 >=60 mL/min/1.73m 2 [facility] Glucose [Mass/Vol] 132 mg/dL High 74 - 106 mg/dL [facility] Interpretation and review of laboratory results Abnormal [facility] Potassium [Moles/Vol] 4.9 mmol/L 3.5 - 5.1 mmol/L [facility] Sodium [Moles/Vol] 136 mmol/L 136 - 145 mmol/L [facility] TBH EGFR-NON AF KOSOVAN 52 Low >=60 mL/min/1.73m 2 [facility] Urea nitrogen [Mass/Vol] 31 mg/dL High 7.0 - 18.0 mg/dL [facility] Urea nitrogen/Creatinine [Mass ratio] 23.3 mg/mg [facility] Office Visiton 10-03-2024 Follow-up visit [id number] Luis M Mcqueen 1945 M Date Provider Department Center 10/03/2024 CATINA ROBERTS SHILPI Pat Jack Family History Problem Relation Age of Onset Coronary artery disease Mother Family Status - Relation Status Age at Mother Level of Service:74800 MO OFFICE/OUTPATIENT ESTABLISHED MOD MDM 30 MIN Normal [facility] ALL CBC WITH AUTO DIFFon BASOPHILS ABSOLUTE AUTO 0 [facility] Basophils/100 WBC (Bld) 0.5 % 0.2 - 2.0 % [facility] Eosinophils/100 WBC (Bld) 3.4 % 0.9 - 7.0 % [facility] Erythrocyte distribution width (RBC) [Ratio] 13.8 % 11.0 - 15.0 % [facility] Hematocrit (Bld) [Volume fraction] 36.7 % Low 42.0 - 54.0 % [facility] Hemoglobin (Bld) [Mass/Vol] 11.9 g/dL Low 14.0 - 18.0 g/dL [facility] IMMATURE GRANULOCYTES ABS AUTO 0.03 [facility] Immature granulocytes/100 WBC (Bld) 0.5 % 0.0 - 0.5 % [facility] Interpretation and review of laboratory results Abnormal [facility] LYMPHOCYTES ABSOLUTE AUTO 1.3 [facility] Lymphocytes/100 WBC (Bld) 20.2 % Low 20.5 - 60.0 % [facility] MCH (RBC) [Entitic mass] 30.5 pg 25.9 - 34.0 pg [facility] MCHC (RBC) [Mass/Vol] 32.4 g/dL 29.9 - 35.2 g/dL [facility] MCV (RBC) [Entitic vol] 94.1 fL High 80.0 - 94.0 fL [facility] MONOCYTES ABSOLUTE AUTO 0.7 [facility] Monocytes/100 WBC (Bld) 10.9 % 1.7 - 12.0 % [facility] NEUTROPHILS ABSOLUTE AUTO 4.2 [facility] Neutrophils/100 WBC (Bld) 64.5 % 43.0 - 75.0 % [facility] Platelet mean volume (Bld) [Entitic vol] 9.4 fL Low 9.5 - 13.5 fL [facility] Healthcare TBH EO # 0.2 [facility] TBH PLT 238 [facility] TB RBC 3.9 Low [facility] WBC 6.4 [facility] WITH AUTO DIFFon Erythrocyte distribution width (RBC) [Ratio] 13.6 % 11.0 - 15.0 % [facility] Hematocrit (Bld) [Volume fraction] 36.9 % Low 42.0 - 54.0 % [facility] Hemoglobin (Bld) [Mass/Vol] 12.2 g/dL Low 14.0 - 18.0 g/dL [facility] Interpretation and review of laboratory results Abnormal [facility] MCH (RBC) [Entitic mass] 31.2 pg 25.9 - 34.0 pg [facility] MCHC (RBC) [Mass/Vol] 33.1 g/dL 29.9 - 35.2 g/dL [facility] MCV (RBC) [Entitic vol] 94.4 fL High 80.0 - 94.0 fL [facility] Platelet mean volume (Bld) [Entitic vol] 8.7 fL Low 9.5 - 13.5 fL [facility] PLT 195 [facility] RBC 3.91 Low [facility] WBC 7.2 [facility]on 03-29-2024 36 Regarding stress haroldo t result from 03/17/2024: CUAUHTEMOC Freeman MA Stress test looks fine No ischemia noted and no reversible defect noted. Patient informed. Normal [facility] Office Visiton 03-09-2024 Follow-up visit [id number] Luis M Mcqueen 1945 Date Provider Department Center 03/09/2024 ARIELLA GRAVES SHILPI Santiago Family History Problem Relation Age of Onset Coronary artery disease Mother Family Status - Relation Status Age at Mother Level of Service:38539 MO OFFICE/OUTPATIENT ESTABLISHED MOD MDM 30 MIN Reason for Visit and Comments: Follow-up [779411] - 3 month follow up Normal [facility] Orders Onlyon 03-09-2024 Orders Only [id number] HannahLuis M 1945 Date Provider Department Center 03/09/2024 LIBRADO CALDERON SHILPI Santiago Family History Problem Relation Age of Onset Coronary artery disease Mother Family Status - Relation Status Age at Mother [facility] 36on 01-02-2024 36 BP is looking good. Continue to hold amlodipine. Thanks [facility] 37on 12-17-2023 37 *Hold amlodipine *We will call you with a plan regarding your water pill. *Continue to check your blood pressure. Write down your readings. We will call you in 2 weeks for your readings. [facility] Office Visiton 12-17-2023 Follow-up visit [id number] Luis M Mcqueen jennifer Desai 1945 M Date Provider Department Center 12/17/2023 ARIELLA GRAVES [facility] Family History Problem Relation Age of Onset Coronary artery disease Mother Family Status - Relation Status Age at Mother Level of Service:38340 MO OFFICE/OUTPATIENT ESTABLISHED MOD MDM 30 MIN Reason for Visit and Comments: Coronary Artery Disease [187] Hypertension [603058] [facility] BNPon 08-20-2022 Natriuretic peptide B (Bld) [Mass/Vol] 1748.0 pg/mL Normal <=1,800.0 [facility] Comment on above: Performed By: #### P OCGLUC #### [facility] [address] [place] [address] Dr. Deidre Tijerina CBC AUTO DIFFon 08-20-2022 BASO # 0.0 103/ul Normal 0.0-0.1 [facility] Comment on above: Performed By: #### C BC #### [facility] [address] [place] [address] Dr. Deidre Tijerina Basophils/100 WBC (Bld) 0.1 % Critically low 0.2-2.0 [facility] Comment on above: Performed By: #### C BC #### [facility] [address] [place] [address] Dr. Deidre Tijerina EO # 0.0 103/ul Normal 0.0-0.7 [facility] Comment on above: Performed By: #### C BC #### [facility] [address] [place] [address] Dr. Deidre Tijerina Eosinophils/100 WBC (Bld) 0.0 % Critically low 0.9-7.0 [facility] Comment on above: Performed By: #### C BC #### [facility] [address] [place] [address] Dr. Deidre Tijerina Erythrocyte distribution width (RBC) [Ratio] 13.6 % Normal 11.0-15.0 [facility] Comment on above: Performed By: #### C BC #### [facility] [address] [place] [address] Dr. Deidre Tijerina Hematocrit (Bld) [Volume fraction] 30.1 % Critically low 42.0-54.0 [facility] Comment on above: Performed By: #### C BC #### [facility] [address] [place] [address] Dr. Deidre Tijerina Hemoglobin (Bld) [Mass/Vol] 9.8 g/dL Critically low 14.0-18.0 [facility] Comment on above: Performed By: #### C BC #### [facility] [address] [place] [address] Dr. Deidre Tijerina IG # 0.13 10e3/ul Critically high 0.00-0.03 [facility] Comment on above: Performed By: #### C BC #### [facility] [address] [place] [address] Dr. Deidre Tijerina IG % 1.0 % Critically high 0.0-0.5 [facility] Comment on above: Performed By: #### C BC #### [facility] [address] [place] [address] Dr. Deidre Tijerina LYMPH # 1.2 103/ul Normal 1.2-3.8 [facility] Comment on above: Performed By: #### C BC #### [facility] [address] [place] [address] Dr. Deidre Tijerina Lymphocytes/100 WBC (Bld) 8.6 % Critically low 20.5-60.0 [facility] Comment on above: Performed By: #### C BC #### [facility] [address] [place] [address] Dr. Deidre Tijerina MANUAL DIFF REQ NO Normal [facility] Comment on above: Performed By: #### C BC #### [facility] [address] [place] [address] Dr. Deidre Tijerina MCH (RBC) [Entitic mass] 30.7 pg Normal 25.9-34.0 [facility] Comment on above: Performed By: #### C BC #### [facility] [address] [place] [address] Dr. Deidre Tijerina MCHC (RBC) [Mass/Vol] 32.6 g/dL Normal 29.9-35.2 [facility] Comment on above: Performed By: #### C BC #### [facility] [address] [place] [address] Dr. Deidre Tijerina MCV (RBC) [Entitic vol] 94.4 fL Critically high 80.0-94.0 [facility] Comment on above: Performed By: #### C BC #### [facility] [address] [place] [address] Dr. Deidre Tijerina MONO # 0.8 103/ul Normal 0.3-0.8 [facility] Comment on above: Performed By: #### C BC #### [facility] [address] [place] [address] Dr. Deidre Tijerina Monocytes/100 WBC (Bld) 6.2 % Normal 1.7-12.0 [facility] Comment on above: Performed By: #### C BC #### [facility] [address] [place] [address] Dr. Deidre Tijerina NEUT # 11.3 103/ul Critically high 1.4-6.5 [facility] Comment on above: Performed By: #### C BC #### [facility] [address] [place] [address] Dr. Deidre Tijerina Neutrophils/100 WBC (Bld) 84.1 % Critically high 43.0-75.0 [facility] Comment on above: Performed By: #### C BC #### [facility] [address] [place] [address] Dr. Deidre Tijerina Platelet mean volume (Bld) [Entitic vol] 9.3 fL Critically low 9.5-13.5 [facility] Comment on above: Performed By: #### C BC #### [facility] [address] [place] [id number] Dr. Deidre Tijerina PLT 204 103/ul Normal 150-450 [facility] Comment on above: Performed By: #### C BC #### [facility] [address] [address] [address] Deidre Tijerina RBC 3.19 106/ul Critically low 4.70-6.10 [facility] Comment on above: Performed By: #### C BC #### [facility] [address] [address] [address] Deidre Tijerina WBC 13.5 103/ul Critically high 4.0-11.0 [facility] Comment on above: Performed By: #### C BC #### [facility] [address] [place] [address] Dr. Deidre Tijerina POINT OF CARE GLUCOSEon 07-25 Glucose [Mass/Vol] 164 mg/dL Critically high 74-106 [facility] Comment on above: Performed By: #### P OCGLUC #### [facility] [address] [place] [address] Dr. Deidre Tijerina PROF CHEM 8 (BAS METB)on Anion gap [Moles/Vol] 10.5 mmol/L Normal [facility] Comment on above: Performed By: #### P OCGLUC #### [facility] [address] [place] [address] Dr. Deidre Tijerina Calcium [Mass/Vol] 8.1 mg/dL Critically low 8.5-10.1 [facility] Comment on above: Performed By: #### P OCGLUC #### [facility] [address] [place] [address] Dr. Deidre Tijerina Chloride [Moles/Vol] 100 mmol/L Normal 98-107 [facility] Comment on above: Performed By: #### P OCGLUC #### [facility] [address] [place] [address] Dr. Deidre Tijerina CO2 [Moles/Vol] 24.4 mmol/L Normal 21.0-32.0 [facility] Comment on above: Performed By: #### P OCGLUC #### [facility] [address] [address] [address] Deidre Tijerina Creatinine [Mass/Vol] 1.17 mg/dL Normal 0.70-1.30 [facility] Comment on above: Performed By: #### P OCGLUC #### [facility] [address] [address] [address] Deidre Tijerina EGFR-AF KOSOVAN >60 Normal >=60 [facility] Comment on above: Performed By: #### P OCGLUC #### [facility] [address] [address] [address] Deidre Tijerina EGFR-NON AF KOSOVAN 60 mL/min/1.73m2 Normal >=60 [facility] Comment on above: Performed By: #### P OCGLUC #### [facility] [address] [address] [address] Deidre Tijerina Glucose [Mass/Vol] 145 mg/dL Critically high 74-106 [facility] Comment on above: Performed By: #### P OCGLUC #### [facility] [address] [address] [address] Deidre Tijerina Potassium [Moles/Vol] 3.9 mmol/L Normal 3.5-5.1 [facility] Comment on above: Performed By: #### P OCGLUC #### [facility] [address] [address] [address] Deidre Tijerina Sodium [Moles/Vol] 131 mmol/L Critically low 136-145 [facility] Comment on above: Performed By: #### P OCGLUC #### [facility] [address] [address] [address] Deidre Tijerina Urea nitrogen [Mass/Vol] 37.0 mg/dL Critically high 7.0-18.0 [facility] Comment on above: Performed By: #### P OCGLUC #### [facility] [address] [address] [address] Deidre Tijerina Urea nitrogen/Creatinine [Mass ratio] 31.6 mg/mg Normal [facility] Comment on above: Performed By: #### P OCGLUC #### [facility] [address] [place] [address] Dr. Deidre Tijerina XR CHEST 1 Von [...] deformities are again identified. Electronically authenticated by: Vita CocoH Date: 2022-08-20 13:26 Normal [facility] BNPon 08-19-2022 Natriuretic peptide B (Bld) [Mass/Vol] 955.0 pg/mL Normal <=1,800.0 [facility] Comment on above: Performed By: #### C BC #### [facility] [address] [place] [address] Dr. Deidre Tijerina CBC W MANUAL DIFFon 08-19-20 22 ATYPICAL LYMPH # 0.28 103/ul Normal [facility] Comment on above: Performed By: #### P OCGLUC #### [facility] [address] [place] [address] Dr. Deidre Tijerina ATYPICAL LYMPH % 2 % Normal [facility] Comment on above: Performed By: #### P OCGLUC #### [facility] [address] [place] [address] Dr. Deidre Tijerina BAND # 0.0 103/ul Normal 0.0-0.3 [facility] Comment on above: Performed By: #### P OCGLUC #### [facility] [address] [place] [address] Dr. Deidre Tijerina BAND % 0 % Normal 0-5 [facility] Comment on above: Performed By: #### P OCGLUC #### [facility] [address] [address] [address] Deidre Tijerina BASOM # 0.00 103/ul Normal 0.00-0.10 [facility] Comment on above: Performed By: #### P OCGLUC #### [facility] [address] [address] [address] Deidre Tijerina BASOM % 0.0 % Critically low 0.2-2.0 [facility] Comment on above: Performed By: #### P OCGLUC #### [facility] [address] [address] [address] Deidre Tijerina BLAST # Normal [facility] Comment on above: Performed By: #### P OCGLUC #### [facility] [address] [address] [address] Deidre Tijerina BLAST % Normal [facility] Comment on above: Performed By: #### P OCGLUC #### [facility] [address] [place] [address] Dr. Deidre Tijerina CORRECTED WBC Normal 4.0-11.0 [facility] Comment on above: Performed By: #### P OCGLUC #### [facility] [address] [address] [address] Deidre Tijerina EOS # 0.00 103/ul Normal 0.00-0.70 [facility] Comment on above: Performed By: #### P OCGLUC #### [facility] [address] [place] [address] Dr. Deidre Tijerina EOS% 0.0 % Critically low 0.9-7.0 [facility] Comment on above: Performed By: #### P OCGLUC #### [facility] [address] [place] [address] Dr. Deidre Tijerina HCT 30.4 % Critically low 42.0-54.0 [facility] Comment on above: Performed By: #### P OCGLUC #### [facility] [address] [address] [address] Deidre Tijerina HGB 9.8 g/dl Critically low 14.0-18.0 [facility] Comment on above: Performed By: #### P OCGLUC #### [facility] [address] [address] [address] Deidre Tijerina LYMPHM # 0.43 103/ul Critically low 1.20-3.80 [facility] Comment on above: Performed By: #### P OCGLUC #### [facility] [address] [address] [address] Deidre Tijerina LYMPHM% 3.0 % Critically low 20.5-60.0 [facility] Comment on above: Performed By: #### P OCGLUC #### [facility] [address] [address] [address] Deidre Tijerina MCH 30.8 pg Normal 25.9-34.0 [facility] Comment on above: Performed By: #### P OCGLUC #### [facility] [address] [address] [address] Deidre Tijerina MCHC 32.2 g/dl Normal 29.9-35.2 [facility] Comment on above: Performed By: #### P OCGLUC #### [facility] [address] [address] [address] Deidre Tijerina MCV 95.6 fL Critically high 80.0-94.0 [facility] Comment on above: Performed By: #### P OCGLUC #### [facility] [address] [address] [address] Deidre Tijerina METAMYELOCYTE # Normal [facility] Comment on above: Performed By: #### P OCGLUC #### [facility] [address] [address] [address] Deidre Tijerina METAMYELOCYTE % Normal [facility] Comment on above: Performed By: #### P OCGLUC #### [facility] [address] [address] [address] Deidre Tijerina MONOM# 0.57 103/ul Normal 0.30-0.80 [facility] Comment on above: Performed By: #### P OCGLUC #### [facility] [address] [address] [address] Deidre Tijerina MONOM% 4.0 % Normal 1.7-12.0 [facility] Comment on above: Performed By: #### P OCGLUC #### [facility] [address] [address] [address] Deidre Tijerina MPV 9.1 fL Critically low 9.5-13.5 [facility] Comment on above: Performed By: #### P OCGLUC #### [facility] [address] [address] [address] Deidre Tijerina MYELOCYTE # Normal [facility] Comment on above: Performed By: #### P OCGLUC #### [facility] [address] [address] [address] Deidre Tijerina MYELOCYTE % Normal [facility] Comment on above: Performed By: #### P OCGLUC #### [facility] [address] [place] [address] Dr. Deidre Tijerina NRBC Normal [facility] Comment on above: Performed By: #### P OCGLUC #### [facility] [address] [address] [address] Deidre Tijerina PLT 188 103/ul Normal 150-450 [facility] Comment on above: Performed By: #### P OCGLUC #### [facility] [address] [address] [address] Deidre Tijerina RBC 3.18 106/ul Critically low 4.70-6.10 [facility] Comment on above: Performed By: #### P OCGLUC #### [facility] [address] [address] [address] Deidre Tijerina RDW 14.0 % Normal 11.0-15.0 [facility] Comment on above: Performed By: #### P OCGLUC #### [facility] [address] [address] [address] Deidre Tijerina SEG # 12.92 103/ul Critically high 1.40-6.50 [facility] Comment on above: Performed By: #### P OCGLUC #### [facility] [address] [address] [address] Deidre Tijerina SEG % 91.0 % Critically high 43.0-75.0 [facility] Comment on above: Performed By: #### P OCGLUC #### [facility] [address] [address] [address] Deidre Tijerina WBC 14.2 103/ul Critically high 4.0-11.0 [facility] Comment on above: Performed By: #### P OCGLUC #### [facility] [address] [address] [address] Deidre Tijerina POINT OF CARE GLUCOSEon 07-25 Glucose [Mass/Vol] 305 mg/dL Critically high [facility]106 [facility] Comment on above: Performed By: #### P OCGLUC #### [facility] [address] [address] [address] Deidre Tijerina Glucose [Mass/Vol] 181 mg/dL Critically high [address] [place] [address] Comment on above: Performed By: #### C BC #### [facility] [address] [address] [address] Deidre Tijerina Glucose [Mass/Vol] 342 mg/dL Critically high [address] [place] [address] Comment on above: Performed By: #### P OCGLUC #### [facility] [address] [address] [address] Deidre Tijerina Glucose [Mass/Vol] 192 mg/dL Critically high [address] [place] [address] Comment on above: Performed By: #### P OCGLUC #### [facility] [address] [address] [address] Deidre Tijerina PROF CHEM 8 (BAS METB)on Anion gap [Moles/Vol] 10.3 mmol/L Normal [facility] Comment on above: Performed By: #### B MP, BNP #### [facility] [address] [address] [address] Deidre Tijerina Calcium [Mass/Vol] 7.9 mg/dL Critically low 8.5-10.1 [facility] Comment on above: Performed By: #### B MP, BNP #### [facility] [address] [address] [address] Deidre Tijerina Chloride [Moles/Vol] 100 mmol/L Normal 98-107 [facility] Comment on above: Performed By: #### B MP, BNP #### [facility] [address] [place] [address] Dr. Deidre Tijerina CO2 [Moles/Vol] 26.6 mmol/L Normal 21.0-32.0 [facility] Comment on above: Performed By: #### B MP, BNP #### [facility] [address] [place] [address] Dr. Deidre Tijerina Creatinine [Mass/Vol] 1.29 mg/dL Normal 0.70-1.30 [facility] Comment on above: Performed By: #### B MP, BNP #### [facility] [address] [place] [address] Dr. Deidre Tijerina EGFR-AF KOSOVAN >60 Normal >=60 [facility] Comment on above: Performed By: #### B MP, BNP #### [facility] [address] [place] [address] Dr. Deidre Tijerina EGFR-NON AF KOSOVAN 54 mL/min/1.73m2 Critically low >=60 [facility] Comment on above: Performed By: #### B MP, BNP #### [facility] [address] [place] [address] Dr. Deidre Tijerina Glucose [Mass/Vol] 190 mg/dL Critically high 74-106 [facility] Comment on above: Performed By: #### B MP, BNP #### [facility] [address] [place] [address] Dr. Deidre Tijerina Potassium [Moles/Vol] 3.9 mmol/L Normal 3.5-5.1 [facility] Comment on above: Performed By: #### B MP, BNP #### [facility] [address] [place] [address] Dr. Deidre Tijerina Sodium [Moles/Vol] 133 mmol/L Critically low 136-145 [facility] Comment on above: Performed By: #### B MP, BNP #### [facility] [address] [place] [address] Dr. Deidre Tijerina Urea nitrogen [Mass/Vol] 35.0 mg/dL Critically high 7.0-18.0 [facility] Comment on above: Performed By: #### B MP, BNP #### [facility] [address] [place] [address] Dr. Deidre Tijerina Urea nitrogen/Creatinine [Mass ratio] 27.1 mg/mg Normal [facility] Comment on above: Performed By: #### B MP, BNP #### [facility] [address] [place] [address] Dr. Deidre Tijerina BILIRUBIN CONJUGATED (DIRECT )on 08-18-2022 BILI, CONJUGATED 0.4 mg/dL Critically high 0.0-0.2 [facility] Comment on above: Performed By: #### P OCGLUC #### [facility] [address] [place] [address] Dr. Deidre Tijerina BLOOD GASES BTYon 08-18-2022 02 MODE BIPAP Normal [facility] Comment on above: Performed By: #### P OCGLUC #### [facility] [address] [place] [address] Dr. Deidre Tijerina ALLENS TEST Positive [facility] Comment on above: Performed By: #### P OCGLUC #### [facility] [address] [place] [address] Dr. Deidre Tijerina Base excess Calc (Bld) [Moles/Vol] 1.0 mmol/L Normal -2.0-2.0 [facility] Comment on above: Performed By: #### P OCGLUC #### [facility] [address] [place] [address] Dr. Deidre Tijerina BIPAP PRESSURE 16/8 Normal [facility] Comment on above: Performed By: #### P OCGLUC #### [facility] [address] [place] [address] Dr. Deidre Tijerina CPAP Normal [facility] Comment on above: Performed By: #### P OCGLUC #### [facility] [address] [place] [address] Dr. Deidre Tijerina FIO2 35.00 % Normal [facility] Comment on above: Performed By: #### P OCGLUC #### [facility] [address] [address] [address] Deidre Tijerina HCO3 (Bld) [Moles/Vol] 25.0 mmol/L Normal 22.0-26.0 [facility] Comment on above: Performed By: #### P OCGLUC #### [facility] [address] [address] [address] Deidre Tijerina LPM [facility] Comment on above: Performed By: #### P OCGLUC #### [facility] [address] [address] [address] Deidre Tijerina MINUTE VOLUME 21 [facility] Comment on above: Performed By: #### P OCGLUC #### [facility] [address] [address] [address] Deidre Tijerina Oxygen (Bld) [Partial pressure] 83.4 mm[Hg] Normal 80.0-100.0 [facility] Comment on above: Performed By: #### P OCGLUC #### [facility] [address] [place] [address] Dr. Deidre Tijerina Oxygen saturation in Blood 97.5 % Normal 95.0-100.0 [facility] Comment on above: Performed By: #### P OCGLUC #### [facility] [address] [place] [address] Dr. Deidre Tijerina PCO2 36.2 mmHg Normal 35.0-45.0 [facility] Comment on above: Performed By: #### P OCGLUC #### [facility] [address] [address] [address] Deidre Tijerina PEEP 8 [facility] Comment on above: Performed By: #### P OCGLUC #### [facility] [address] [address] [address] Deidre Tijerina pH (Bld) 7.440 [pH] Normal 7.350-7.450 [facility] Comment on above: Performed By: #### P OCGLUC #### [facility] [address] [address] [address] Deidre Tijerina PIP 17 [facility] Comment on above: Performed By: #### P OCGLUC #### [facility] [address] [address] [address] Deidre Tijerina PS 8 [facility] Comment on above: Performed By: #### P OCGLUC #### [facility] [address] [address] [address] Deidre Tijerina PUNCTURE SITE RR Normal [facility] Comment on above: Performed By: #### P OCGLUC #### [facility] [address] [address] [address] Deidre Tijerina RATE 14 bpm [facility] Comment on above: Performed By: #### P OCGLUC #### [facility] [address] [address] [address] Deidre Tijerina VENT MODE [facility] Comment on above: Performed By: #### P OCGLUC #### [facility] [address] [place] [address] Dr. Deidre Tijerina VT 945 ML [facility] Comment on above: Performed By: #### P OCGLUC #### [facility] [address] [address] [address] Deidre Tijerina BNPon 08-18-2022 Natriuretic peptide B (Bld) [Mass/Vol] 2561.0 pg/mL Critically high <=1,800.0 [facility] Comment on above: Performed By: #### P OCGLUC #### [facility] [address] [place] [address] Dr. Deidre Tijerina CBC W MANUAL DIFFon 08-18-20 22 ANISOCYTOSIS 1+ [facility] Comment on above: Performed By: #### C BCMAN #### [facility] [address] [place] [address] Dr. Deidre Tijerina ATYPICAL LYMPH # [facility] Comment on above: Performed By: #### C BCMAN #### [facility] [address] [place] [address] Dr. Deidre Tijerina ATYPICAL LYMPH % [facility] Comment on above: Performed By: #### C BCMAN #### [facility] [address] [place] [address] Dr. Deidre Tijerina BAND # 1.2 103/ul Critically high 0.0-0.3 [facility] Comment on above: Performed By: #### C BCNICOLASA #### [facility] [address] [place] [address] Dr. Deidre Tijerina BAND % 7 % Critically high 0-5 [facility] Comment on above: Performed By: #### C ADALGISA #### [facility] [address] [address] [address] Deidre Tijerina BASOM # 0.00 103/ul Normal 0.00-0.10 [facility] Comment on above: Performed By: #### C ADALGISA #### [facility] [address] [place] [address] Dr. Deidre Tijerina BASOM % 0.0 % Critically low 0.2-2.0 [facility] Comment on above: Performed By: #### C ADALGISA #### [facility] [address] [place] [address] Dr. Deidre Tijerina BLAST # Normal [facility] Comment on above: Performed By: #### C ADALGISA #### [facility] [address] [place] [address] Dr. Deidre Tijerina BLAST % Normal [facility] Comment on above: Performed By: #### C ADALGISA #### [facility] [address] [place] [address] Dr. Deidre Tijerina CORRECTED WBC Normal 4.0-11.0 [facility] Comment on above: Performed By: #### C BCNICOLASA #### [facility] [address] [place] [address] Dr. Deidre Tijerina EOS # 0.17 103/ul Normal 0.00-0.70 [facility] Comment on above: Performed By: #### C ADALGISA #### [facility] [address] [place] [address] Dr. Deidre Tijerina EOS% 1.0 % Normal 0.9-7.0 [facility] Comment on above: Performed By: #### C ADALGISA #### [facility] [address] [address] [address] Deidre Tijerina HCT 34.8 % Critically low 42.0-54.0 [facility] Comment on above: Performed By: #### C ADALGISA #### [facility] [address] [address] [address] Deidre Tijerina HGB 11.5 g/dl Critically low 14.0-18.0 [facility] Comment on above: Performed By: #### C ADALGISA #### [facility] [address] [address] [address] Deidre Tijerina LYMPHM # 1.20 103/ul Normal 1.20-3.80 [facility] Comment on above: Performed By: #### C ADALGISA #### [facility] [address] [place] [address] Dr. Deidre Tijerina LYMPHM% 7.0 % Critically low 20.5-60.0 [facility] Comment on above: Performed By: #### C ADALGISA #### [facility] [address] [place] [address] Dr. Deidre Tijerina MCH 31.5 pg Normal 25.9-34.0 [facility] Comment on above: Performed By: #### C ADALGISA #### [facility] [address] [address] [address] Deidre Tijerina MCHC 33.0 g/dl Normal 29.9-35.2 [facility] Comment on above: Performed By: #### C ADALGISA #### [facility] [address] [place] [address] Dr. Deidre Tijerina MCV 95.3 fL Critically high 80.0-94.0 [facility] Comment on above: Performed By: #### C ADALGISA #### [facility] [address] [place] [address] Dr. Deidre Tijerina METAMYELOCYTE # Normal [facility] Comment on above: Performed By: #### C ADALGISA #### [facility] [address] [place] [address] Dr. Deidre Tijerina METAMYELOCYTE % Normal [facility] Comment on above: Performed By: #### Gely DIANA #### [facility] [address] [address] [address] Deidre Tijerina MONOM# 1.03 103/ul Critically high 0.30-0.80 [facility] Comment on above: Performed By: #### C ADALGISA #### [facility] [address] [address] [address] Deidre Tijerina MONOM% 6.0 % Normal 1.7-12.0 [facility] Comment on above: Performed By: #### C ADALGISA #### [facility] [address] [address] [address] Deidre Tijerina MPV 8.7 fL Critically low 9.5-13.5 [facility] Comment on above: Performed By: #### Gely DIANA #### [facility] [address] [place] [address] Dr. Deidre Tijerina MYELOCYTE # Normal [facility] Comment on above: Performed By: #### Gely DIANA #### [facility] [address] [place] [address] Dr. Deidre Tijerina MYELOCYTE % Normal [facility] Comment on above: Performed By: #### Gely DIANA #### [facility] [address] [place] [address] Dr. Deidre Tijerina NRBC Normal [facility] Comment on above: Performed By: #### Gely DIANA #### [facility] [address] [place] [address] Dr. Deidre Tijerina PLT 212 103/ul Normal 150-450 [facility] Comment on above: Performed By: #### C ADALGISA #### [facility] [address] [place] [address] Dr. Deidre Tijerina RBC 3.65 106/ul Critically low 4.70-6.10 [facility] Comment on above: Performed By: #### C ADALGISA #### [facility] [address] [place] [address] Dr. Deidre Tijerina RDW 14.0 % Normal 11.0-15.0 [facility] Comment on above: Performed By: #### C ADALGISA #### [facility] [address] [place], [place] [address] Dr. Deidre Tijerina SEG # 13.59 103/ul Critically high 1.40-6.50 [facility] Comment on above: Performed By: #### C BCMAN #### [facility] [address] [place], [place] [address] Dr. Deidre Tijerina SEG % 79.0 % Critically high 43.0-75.0 [facility] Comment on above: Performed By: #### C BCMAN #### [facility] [address] [place], [place] [address] Dr. Deidre Tijerina WBC 17.2 103/ul Critically high 4.0-11.0 [facility] Comment on above: Performed By: #### C BCMAN #### [facility] [address] [place], [place] [address] CHEST WO CONon [...] NOREEN KELLY Date: 2022-08-18 12:12 Normal [facility] CULTURE BLOODon 08-18-2022 Microscopic examination of blood, culture Culture Observations: NO GROWTH AT 5 DAYS. Normal [facility] Comment on above: Performed By: #### C BC #### [facility] [address] [place], [place] [address] Dr. Deidre Tijerina Microscopic examination of blood, culture Culture Observations: NO GROWTH AT 5 DAYS. Normal [facility] Comment on above: Performed By: #### C BC #### [facility] [address] [place], [place] [address] Dr. Deidre Tijerina Covid-19 PCR ([facility])on 07-25 SARS-CoV-2 (COVID-19) RNA ISA+probe Ql (Unsp spec) Not detected Normal NOT DETECTED [facility] Comment on above: Result Comment: [...] for this test is supported by the [place] of Health and Human Service's declaration that [...] Performed By: #### P OCGLUC #### [facility] [address] [place], [place] [id number] Dr. Deidre Tijerina ECHO LIMITED STUDYon 022 ECHO LIMITED STUDY Patient: ARIANNE MCQUEEN Exam Date: 08/18/2022 : 1945 Gender:M Ordering : SHAIKH Zay CARRERA . Admission #: [id number] Family : Order #: [id number] CLICK HERE TO VIEW EXAM ECHOCARDIOGRAM REPORT [...] on 08/26/2022 at 09:00 Normal [facility] INFLUENZA A AND B AGon 08-18 INFLUANEGH SEE BELOW Normal [facility] Comment on above: Result Comment: Nega tive for Flu A protein angiten. Infection due to Flu A cannot be ruled out. Flu A angiten in the sample may be below the detection limit of the test. Performed By: #### P OCGLUC #### [facility] [address] [place] [address] Dr. Deidre Tijerina [facility] SEE BELOW Normal [facility] Comment on above: Result Comment: Nega tive for Flu B protein antigen. Infection due to Flu B cannot be ruled out. Flu B antigen in the sample may be below the detection limit of the test. Performed By: #### P OCGLUC #### [facility] [address] [place] [address] Dr. Deidre Tijerina INFLUENZA A AG Negative Normal NEGATIVE SEE COMMENT [facility] Comment on above: Performed By: #### P OCGLUC #### [facility] [address] [place] [address] Dr. Deidre Tijerina INFLUENZA B AG Negative Normal NEGATIVE SEE COMMENT [facility] Comment on above: Performed By: #### P OCGLUC #### [facility] [address] [place] [address] Dr. Deidre Tijerina INTERNAL CONTROLS Within Normal Limits Normal Wi thin Normal Limits [facility] Comment on above: Performed By: #### P OCGLUC #### [facility] [address] [place] [address] Dr. Deidre Tjierina LACTATE/LACTIC ACIDon 2021 Lactate [Moles/Vol] 2.0 mmol/L Critically high 0.4-1.9 [facility] Comment on above: Performed By: #### P OCGLUC #### [facility] [address] [place] [address] Dr. Deidre Tijerina Lactate [Moles/Vol] 2.0 mmol/L Critically high 0.4-1.9 [facility] Comment on above: Performed By: #### P OCGLUC #### [facility] [address] [place] [address] Dr. Deidre Tijerina POINT OF CARE GLUCOSEon 07-25 Glucose [Mass/Vol] 228 mg/dL Critically high 74-106 [facility] Comment on above: Performed By: #### P OCGLUC #### [facility] [address] [place] [address] Dr. Dedire Tijerina Glucose [Mass/Vol] 119 mg/dL Critically high 74-106 [facility] Comment on above: Performed By: #### P OCGLUC #### [facility] [address] [place] [address] Dr. Deidre Tijerina Glucose [Mass/Vol] 161 mg/dL Critically high 74-106 [facility] Comment on above: Performed By: #### C BC #### [facility] [address] [place] [address] Dr. Deidre Tijerina PROF 14(COMP METB)on 022 Albumin [Mass/Vol] 2.9 g/dL Critically low 3.4-5.0 [facility] Comment on above: Performed By: #### P OCGLUC #### [facility] [address] [place] [address] Dr. Deidre Tijerina Albumin/Globulin [Mass ratio] 0.6 {ratio} Normal [facility] Comment on above: Performed By: #### P OCGLUC #### [facility] [address] [place] [address] Dr. Deidre Tijerina ALP [Catalytic activity/Vol] 71 U/L Normal 46-116 [facility] Comment on above: Performed By: #### P OCGLUC #### [facility] [address] [place] [address] Dr. Deidre Tijerina ALT [Catalytic activity/Vol] 13 U/L Critically low 16-63 [facility] Comment on above: Performed By: #### P OCGLUC #### [facility] [address] [place] [address] Dr. Deidre Tijerina Anion gap [Moles/Vol] 12.3 mmol/L Normal [facility] Comment on above: Performed By: #### P OCGLUC #### [facility] [address] [place] [address] Dr. Deidre Tijerina AST [Catalytic activity/Vol] 14 U/L Critically low 15-37 [facility] Comment on above: Performed By: #### P OCGLUC #### [facility] [address] [place] [address] Dr. Deidre Tijerina Bilirubin [Mass/Vol] 2.6 mg/dL Critically high 0.2-1.0 [facility] Comment on above: Performed By: #### P OCGLUC #### [facility] [address] [place] [address] [address] Deidre Tijerina Calcium [Mass/Vol] 8.5 mg/dL Normal 8.5-10.1 [facility] Comment on above: Performed By: #### P OCGLUC #### [facility] [address] [place] [address] [address] Deidre Tijerina Chloride [Moles/Vol] 98 mmol/L Normal 98-107 [facility] Comment on above: Performed By: #### P OCGLUC #### [facility] [address] [place] [address] Dr. Deidre Tijerina CO2 [Moles/Vol] 26.0 mmol/L Normal 21.0-32.0 [facility] Comment on above: Performed By: #### P OCGLUC #### [facility] [address] [place] [address] [address] Deidre Tijerina Creatinine [Mass/Vol] 1.43 mg/dL Critically high 0.70-1.30 [facility] Comment on above: Performed By: #### P OCGLUC #### [facility] [address] [place] [address] Dr. Deidre Tijerina EGFR-AF KOSOVAN 58 mL/min/1.73m2 Critically low >=60 [facility] Comment on above: Performed By: #### P OCGLUC #### [facility] [address] [place] [address] [address] Deidre Tijerina EGFR-NON AF KOSOVAN 48 mL/min/1.73m2 Critically low >=60 [facility] Comment on above: Performed By: #### P OCGLUC #### [facility] [address] [place] [address] Dr. Deidre Tijerina Globulin (S) [Mass/Vol] 5.0 g/dL Normal [facility] Comment on above: Performed By: #### P OCGLUC #### [facility] [address] [place] [address] Dr. Deidre Tijerina Glucose [Mass/Vol] 165 mg/dL Critically high 74-106 [facility] Comment on above: Performed By: #### P OCGLUC #### [facility] [address] [place] [address] [address] Deidre Tijerina Potassium [Moles/Vol] 4.3 mmol/L Normal 3.5-5.1 [facility] Comment on above: Performed By: #### P OCGLUC #### [facility] [address] [place] [address] [address] Deidre Tijerina Protein [Mass/Vol] 7.9 g/dL Normal 6.4-8.2 [facility] Comment on above: Performed By: #### P OCGLUC #### [facility] [address] [place] [address] [address] Deidre Tijerina Sodium [Moles/Vol] 132 mmol/L Critically low 136-145 [facility] Comment on above: Performed By: #### P OCGLUC #### [facility] [address] [place] [address] [address] Deidre Tijerina Urea nitrogen [Mass/Vol] 25.0 mg/dL Critically high 7.0-18.0 [facility] Comment on above: Performed By: #### P OCGLUC #### [facility] [address] [place] [address] Dr. Deidre Tijerina Urea nitrogen/Creatinine [Mass ratio] 17.5 mg/mg Normal [facility] Comment on above: Performed By: #### P OCGLUC #### [facility] [address] [place] [address] Dr. Deidre Tijerina TROPONIN, HIGH SENSITIVITYon 08-18-2022 HSTROP 8.4 pg/mL Normal 4.0-76.1 [facility] Comment on above: Result Comment: CUT- OFF POINTS HAVE BEEN ESTABLISHED BASED ON THE FOURTH UNIVERSAL DEFINITIONS OF MYOCARDIAL INFARCTION. THE UPPER REFERENCE LIMIT (URL) OF TROPONIN, DEFINED THE 99TH PERCENTILE OF cTnI DISTRIBUTION IN A REFERENCE POPULATION, HAS BEEN CONFIRMED THE DECISION THRESHOLD FOR AK DIAGNOSIS. Performed By: #### P OCGLUC #### [facility] [address] [place] [address] Dr. Deidre Tijerina XR CHEST 1 Von [...] left costophrenic angle is excluded from the [id number]. 3. No overt edema, failure, pneumothorax, or sizable effusion noted within limits of study. 4. Old healed nondisplaced anterior right fifth rib fracture deformity faintly suggested. Electronically authenticated by: ESTUARDO GARCIAH Date: 2022-08-18 09:37 Normal [facility] NM STRESS/REST MULTIon 08-04 NM STRESS/REST MULTI Patient: ARIANNE MCQUEEN Exam Date: 08/04/2022 : 1945 Gender:M Ordering : DR CATINA SALAZAR M.D. Admission #: [id number] Family : Order #: [id number] CLICK HERE TO VIEW EXAM RADIOLOGY REPORT [...] Banks MD on 08/07/2022 at 08:29 Normal [facility] BNPon 07-14-2022 Natriuretic peptide B (Bld) [Mass/Vol] 164.0 pg/mL Normal <=1,800.0 [facility] Comment on above: Performed By: #### B VALIDATION ENGINEER, BMP #### [facility] [address] [place] [address] Dr. Deidre Tijerina PROF CHEM 8 (BAS METB)on Anion gap [Moles/Vol] 9.2 mmol/L Normal [facility] Comment on above: Performed By: #### B VALIDATION ENGINEER, BMP #### [facility] [address] [place] [address] Dr. Deidre Tijerina Calcium [Mass/Vol] 8.4 mg/dL Critically low 8.5-10.1 [facility] Comment on above: Performed By: #### B VALIDATION ENGINEER, BMP #### [facility] [address] [place] [address] Dr. Deidre Tijerina Chloride [Moles/Vol] 106 mmol/L Normal 98-107 [facility] Comment on above: Performed By: #### B VALIDATION ENGINEER, BMP #### [facility] [address] [place] [address] Dr. Deidre Tijerina CO2 [Moles/Vol] 27.0 mmol/L Normal 21.0-32.0 [facility] Comment on above: Performed By: #### B VALIDATION ENGINEER, BMP #### [facility] [address] [place] [address] Dr. Deidre Tijerina Creatinine [Mass/Vol] 1.38 mg/dL Critically high 0.70-1.30 [facility] Comment on above: Performed By: #### B VALIDATION ENGINEER, BMP #### [facility] [address] [place] [address] [address] Deidre Tijerina EGFR-AF KOSOVAN =60 Normal >=60 [facility] Comment on above: Performed By: #### B VALIDATION ENGINEER, BMP #### [facility] [address] [place] [address] [address] Deidre Tijerina EGFR-NON AF KOSOVAN 50 mL/min/1.73m2 Critically low >=60 [facility] Comment on above: Performed By: #### B VALIDATION ENGINEER, BMP #### [facility] [address] [place] [address] [address] Deidre Tijerina Glucose [Mass/Vol] 95 mg/dL Normal 74-106 [facility] Comment on above: Performed By: #### B VALIDATION ENGINEER, BMP #### [facility] [address] [place] [address] [address] Deidre Tijerina Potassium [Moles/Vol] 5.2 mmol/L Critically high 3.5-5.1 [facility] Comment on above: Performed By: #### B VALIDATION ENGINEER, BMP #### [facility] [address] [place] [address] [address] Deidre Tijerina Sodium [Moles/Vol] 137 mmol/L Normal 136-145 [facility] Comment on above: Performed By: #### B VALIDATION ENGINEER, BMP #### [facility] [address] [place] [address] [address] Deidre Tijerina Urea nitrogen [Mass/Vol] 25.0 mg/dL Critically high 7.0-18.0 [facility] Comment on above: Performed By: #### B VALIDATION ENGINEER, BMP #### [facility] [address] [place] [address] [address] Deidre Tijerina Urea nitrogen/Creatinine [Mass ratio] 18.1 mg/mg Normal [facility] Comment on above: Performed By: #### B VALIDATION ENGINEER, BMP #### [facility] [address] [place] [address] [address] Deidre Tijerina ECHOCARDIO M/2D COMPLETEon 0 05-08-2022 ECHOCARDIO M/2D COMPLETE Patient: ARIANNE MCQUEENFrancine Exam Date: 05/08/2022 : 1945 Gender:M Ordering : DR CATINA SALAZAR M.D. Admission #: [id number] Family : DR MAL BARNES D.O. Order #: [id number] CLICK HERE TO VIEW EXAM ECHOCARDIOGRAM REPORT [...] Salazar M.D. on 05/09/2022 at 19:48 Normal [facility] XR LSPINE MIN 4 VIEWSon 04-24 XR LSPINE MIN 4 VIEWS EXAMINATION: XR LS PINE MIN 4 VIEWS HISTORY: Pain in right [...] KELLY Date: 2022-05-08 10:47 Normal [facility] PROF CHEM 8 (BAS METB)on Anion gap [Moles/Vol] 6.8 mmol/L Normal [facility] Comment on above: Performed By: #### P OCGLUC #### [facility] [address] [place] [address] [address] Deidre Tijerina Calcium [Mass/Vol] 8.8 mg/dL Normal 8.5-10.1 [facility] Comment on above: Performed By: #### P OCGLUC #### [facility] [address] [place] [address] [address] Deidre Tijerina Chloride [Moles/Vol] 102 mmol/L Normal 98-107 [facility] Comment on above: Performed By: #### P OCGLUC #### [facility] [address] [place] [address] [address] Deidre Tijerina CO2 [Moles/Vol] 28.1 mmol/L Normal 21.0-32.0 [facility] Comment on above: Performed By: #### P OCGLUC #### [facility] [address] [place] [address] [address] Deidre Tijerina Creatinine [Mass/Vol] 1.84 mg/dL Critically high 0.70-1.30 [facility] Comment on above: Performed By: #### P OCGLUC #### [facility] [address] [place] [address] [address] Deidre Tijerina EGFR-AF KOSOVAN 43 mL/min/1.73m2 Critically low >=60 [facility] Comment on above: Performed By: #### P OCGLUC #### [facility] [address] [place] [address] Dr. Deidre Tijerina EGFR-NON AF KOSOVAN 36 mL/min/1.73m2 Critically low >=60 [facility] Comment on above: Performed By: #### P OCGLUC #### [facility] [address] [place] [address] [address] Deidre Tijerina Glucose [Mass/Vol] 112 mg/dL Critically high 74-106 [facility] Comment on above: Performed By: #### P OCGLUC #### [facility] [address] [place] [address] [address] Deidre Tijerina Potassium [Moles/Vol] 4.9 mmol/L Normal 3.5-5.1 [facility] Comment on above: Performed By: #### P OCGLUC #### [facility] [address] [place] [address] Dr. Deidre Tijerina Sodium [Moles/Vol] 132 mmol/L Critically low 136-145 [facility] Comment on above: Performed By: #### P OCGLUC #### [facility] [address] [place] [address] Dr. Deidre Tijerina Urea nitrogen [Mass/Vol] 40.0 mg/dL Critically high 7.0-18.0 [facility] Comment on above: Performed By: #### P OCGLUC #### [facility] [address] [place] [address] Dr. Deidre Tijerina Urea nitrogen/Creatinine [Mass ratio] 21.7 mg/mg Normal [facility] Comment on above: Performed By: #### P OCGLUC #### [facility] [address] [place] [address] Dr. Deidre Tijerina PROF CHEM 8 (BAS METB)on Anion gap [Moles/Vol] 8.9 mmol/L Normal [facility] Comment on above: Performed By: #### B MP #### [facility] [address] [place] [address] Dr. Deidre Tijerina Calcium [Mass/Vol] 8.4 mg/dL Critically low 8.5-10.1 [facility] Comment on above: Performed By: #### B MP #### [facility] [address] [place] [address] [address] Deidre Tijerina Chloride [Moles/Vol] 102 mmol/L Normal 98-107 [facility] Comment on above: Performed By: #### B MP #### [facility] [address] [place] [address] [address] Deidre Tijerina CO2 [Moles/Vol] 25.9 mmol/L Normal 21.0-32.0 [facility] Comment on above: Performed By: #### B MP #### [facility] [address] [place] [address] [address] Deidre Tijerina Creatinine [Mass/Vol] 1.20 mg/dL Normal 0.70-1.30 [facility] Comment on above: Performed By: #### B MP #### [facility] [address] [place] [address] [address] Deidre Tijerina EGFR-AF KOSOVAN >60 Normal >=60 [facility] Comment on above: Performed By: #### B MP #### [facility] [address] [place] [address] [address] Deidre Tijerina EGFR-NON AF KOSOVAN 59 mL/min/1.73m2 Critically low >=60 [facility] Comment on above: Performed By: #### B MP #### [facility] [address] [place] [address] [address] Deidre Tijerina Glucose [Mass/Vol] 117 mg/dL Critically high 74-106 [facility] Comment on above: Performed By: #### B MP #### [facility] [address] [place] [address] [address] Deidre Tijerina Potassium [Moles/Vol] 4.8 mmol/L Normal 3.5-5.1 [facility] Comment on above: Performed By: #### B MP #### [facility] [address] [place] [address] [address] Deidre Tijerina Sodium [Moles/Vol] 132 mmol/L Critically low 136-145 [facility] Comment on above: Performed By: #### B MP #### [facility] [address] [place] [address] [address] Deidre Tijerina Urea nitrogen [Mass/Vol] 25.0 mg/dL Critically high 7.0-18.0 [facility] Comment on above: Performed By: #### B MP #### [facility] [address] [place], [place] [address] Dr. Deidre Tijerina Urea nitrogen/Creatinine [Mass ratio] 20.8 mg/mg Normal [facility] Comment on above: Performed By: #### B MP #### [facility] [address] [place], [place] [address] Dr. Deidre Tijerina US CHESTon 08-05-2021 US CHEST Normal [facility] Comment on above: Order Comment: serom a in the chest needs a drain placed BASIC METABOLIC PANELon 05-24 Calcium [Mass/Vol] 8.4 mg/dL Low 8.6-10.3 [facility] Comment on above: Order Comment: this is not a nurse draw. lab draw pleaseNo: Do not add to previous draw Performed By: #### 0 [id number] ####[facility] [place] [address], [facility] Chloride [Moles/Vol] 102 mmol/L Normal 98-107 [facility] Comment on above: Order Comment: this is not a nurse draw. lab draw pleaseNo: Do not add to previous draw Performed By: #### 0 0071 ####[facility] [place] [address], [place] CO2 [Moles/Vol] 25 mmol/L Normal 21-31 [facility] Comment on above: Order Comment: this is not a nurse draw. lab draw pleaseNo: Do not add to previous draw Performed By: #### 0 [id number] ####[facility] [place] [address], [place] Creatinine [Mass/Vol] 2.56 mg/dL High 0.70-1.30 [facility] Comment on above: Order Comment: this is not a nurse draw. lab draw pleaseNo: Do not add to previous draw Performed By: #### 0 0071 ####[facility] [place] [address], [facility] eGFR- 30 ml/min/1.73sq m Abnormal >60 [facility] Comment on above: Order Comment: this is not a nurse draw. lab draw pleaseNo: Do not add to previous draw Result Comment: Calc ulation may not be valid for patients over 70 years Performed By: #### 0 [id number] ####[facility] [place] [address], [facility] eGFR- non- 24 ml/min/1.73sq m Abnormal >60 [facility] Comment on above: Order Comment: this is not a nurse draw. lab draw pleaseNo: Do not add to previous draw Result Comment: Calc ulation may not be valid for patients over 70 years Performed By: #### 0 [id number] ####[facility] [place] [address], [place] Glucose [Mass/Vol] 182 mg/dL High 70-100 [facility] Comment on above: Order Comment: this is not a nurse draw. lab draw pleaseNo: Do not add to previous draw Performed By: #### 0 [id number] ####[facility] [place] [address], [place] Potassium [Moles/Vol] 4.5 mmol/L Normal 3.5-5.1 [facility] Comment on above: Order Comment: this is not a nurse draw. lab draw pleaseNo: Do not add to previous draw Performed By: #### 0 0071 ####[facility] [place] [address], [place] Sodium [Moles/Vol] 133 mmol/L Low 136-145 [facility] Comment on above: Order Comment: this is not a nurse draw. lab draw pleaseNo: Do not add to previous draw Performed By: #### 0 [id number] ####[facility] [place] [address], [place] Urea nitrogen [Mass/Vol] 28 mg/dL High 7-25 [facility] Comment on above: Order Comment: this is not a nurse draw. lab draw pleaseNo: Do not add to previous draw Performed By: #### 0 [id number] ####[facility] [facility] [place] [address], [facility] POC GLUCOSE LABon 06-02-2021 Glucose [Mass/Vol] 246 mg/dL High 70-100 [facility] Comment on above: Performed By: #### [id number] ####[facility] [facility] [place] [address], [facility] Glucose [Mass/Vol] 109 mg/dL High 70-100 [facility] Comment on above: Performed By: #### [id number] ####[facility] [facility] [place] [address], [facility] POC SARS COV2 ANTIGEN NEGATI VEon 06-02-2021 POC SARS COV2 ANTIGEN NEG Negative Normal NEGATIVE [facility] Comment on above: Result Comment: [...] of clinicalsigns and symptoms consistent with COVID-19.[employer] COVID-19 Ag Card is a lateral flow immunoassay intended forthe qualitative detection of nucleocapsid protein antigen [id number] in direct nasal swabs from individuals within [...] Certificate ofAccreditation. Performed By: #### 3 1976 ####[facility] [place] [address], [facility] POC SARS COV2 ANTIGEN NEG Negative Normal NEGATIVE [facility] Comment on above: Result Comment: [...] of clinicalsigns and symptoms consistent with COVID-19.[employer] COVID-19 Ag Card is a lateral flow immunoassay intended forthe qualitative detection of nucleocapsid protein antigen [id number]-[id number] in direct nasal swabs from individuals within [...] Certificate ofAccreditation. Performed By: #### 3 1976 ####[facility] [place] [address], [facility] POC GLUCOSE LABon 06-01-2021 Glucose [Mass/Vol] 142 mg/dL High 70-100 [facility] Comment on above: Performed By: #### 8 5499 ####[facility] [place] [address], [facility] Glucose [Mass/Vol] 132 mg/dL High 70-100 [facility] Comment on above: Performed By: #### 8 5499 ####[facility] [place] [address], [facility] Glucose [Mass/Vol] 167 mg/dL High 70-100 [facility] Comment on above: Performed By: #### 8 5499 ####[facility] Glucose [Mass/Vol] 113 mg/dL High 70-100 [facility] Comment on above: Performed By: #### 8 5499 ####[facility] APTTon 05-31-2021 aPTT Coag (Bld) [Time] 29.3 s Normal 25.0-35.0 Th [facility] Comment on above: Result Comment: ALL [...] THIS PURPOSE. Performed By: #### 5 7307, 82602 ####[facility] [place] [address] CBC W/DIFFon 05-31-2021 ABS IMM GRANS 0.1 10*3/uL Normal 0.0-0.2 [facility] Comment on above: Order Comment: No: D o not add to previous draw Performed By: #### 5 0103 ####[facility] ABS NEUTROPHILS 4.9 10*3/uL Normal 1.6-7.6 [facility] Comment on above: Order Comment: No: D o not add to previous draw Performed By: #### 5 0103 ####[address] Basophils (Bld) [#/Vol] 0.1 10*3/uL Normal 0.0-0.2 [facility] Comment on above: Order Comment: No: D o not add to previous draw Performed By: #### 5 0103 ####[facility] [facility] [place] [address], [facility] Basophils/100 WBC (Bld) 0.6 % Normal 0.0-1.0 [facility] Comment on above: Order Comment: No: D o not add to previous draw Performed By: #### 5 0103 ####[facility] [place] [address], [facility] Eosinophils (Bld) [#/Vol] 0.4 10*3/uL Normal 0.0-0.5 [facility] Comment on above: Order Comment: No: D o not add to previous draw Performed By: #### 5 0103 ####[facility] [facility] [place] [address], [facility] Eosinophils/100 WBC (Bld) 5.3 % Normal 0.0-6.0 [facility] Comment on above: Order Comment: No: D o not add to previous draw Performed By: #### 5 0103 ####[facility] [facility] [place] [address], [facility] Erythrocyte distribution width (RBC) [Ratio] 15.7 % High 11.5-15.0 [facility] Comment on above: Order Comment: No: D o not add to previous draw Performed By: #### 5 0103 ####[facility] [facility] [place] [address], [facility] Hematocrit (Bld) [Volume fraction] 27.6 % Low 39.0-50.0 [facility] Comment on above: Order Comment: No: D o not add to previous draw Performed By: #### 5 0103 ####[facility] [place] [address], [facility] Hemoglobin (Bld) [Mass/Vol] 8.5 g/dL Low 13.0-17.0 [facility] Comment on above: Order Comment: No: D o not add to previous draw Performed By: #### 5 0103 ####[facility] IMMATURE GRANS 1.1 % High 0.0-1.0 [facility] Comment on above: Order Comment: No: D o not add to previous draw Performed By: #### 5 0103 ####[facility] [place] [address] Lymphocytes (Bld) [#/Vol] 1.7 10*3/uL Normal 1.2-4.0 [facility] Comment on above: Order Comment: No: D o not add to previous draw Performed By: #### 5 0103 ####[facility] Lymphocytes/100 WBC (Bld) 21.4 % Normal 20.0-45.0 [facility] Comment on above: Order Comment: No: D o not add to previous draw Performed By: #### 5 0103 ####[facility] [place] [address] MCH (RBC) [Entitic mass] 29.2 pg Normal 27.0-33.0 [facility] Comment on above: Order Comment: No: D o not add to previous draw Performed By: #### 5 0103 ####[facility] [place] [address] MCHC (RBC) [Mass/Vol] 30.8 g/dL Low 32.0-35.0 [facility] Comment on above: Order Comment: No: D o not add to previous draw Performed By: #### 5 0103 ####[facility] MCV (RBC) [Entitic vol] 94.8 fL Normal 82.0-98.0 [facility] Comment on above: Order Comment: No: D o not add to previous draw Performed By: #### 5 0103 ####[facility] [facility] [place] [address], [facility] Monocytes (Bld) [#/Vol] 0.8 10*3/uL Normal 0.1-1.0 [facility] Comment on above: Order Comment: No: D o not add to previous draw Performed By: #### 5 0103 ####[facility] [place] [address], [facility] MONOS 9.7 % Normal 5.0-12.0 [facility] Comment on above: Order Comment: No: D o not add to previous draw Performed By: #### 5 0103 ####[facility] Neutrophils/100 WBC (Bld) 61.9 % Normal 40.0-72.0 [facility] Comment on above: Order Comment: No: D o not add to previous draw Performed By: #### 5 0103 ####[facility] [facility].[address] Nucleated RBC/100 WBC (Bld) [Ratio] 0 % Normal 0-0 [facility] Comment on above: Order Comment: No: D o not add to previous draw Performed By: #### 5 0103 ####[facility] [facility] [place] [address], [facility] PLAT CNT 351 10*3/uL Normal 150-400 [facility] Comment on above: Order Comment: No: D o not add to previous draw Performed By: #### 5 0103 ####[facility] [facility] [place] [address], [facility] RBC (Bld) [#/Vol] 2.91 10*6/uL Low 4.20-5.70 [facility] Comment on above: Order Comment: No: D o not add to previous draw Performed By: #### 5 0103 ####[facility] [place] [address], [facility] WBC (Bld) [#/Vol] 7.96 10*3/uL Normal 4.00-10.60 [facility] Comment on above: Order Comment: No: D o not add to previous draw Performed By: #### 5 0103 ####[facility] COMP METABOLIC PANELon 05-31 Albumin [Mass/Vol] 2.9 g/dL Low 3.5-5.7 [facility] Comment on above: Order Comment: No: D o not add to previous drawNurse draw Performed By: #### 1 0, 09783 ####[facility] [place] [address], [facility] ALKALINE PHOSPH 70 IU/L Normal 34-104 [facility] Comment on above: Order Comment: No: D o not add to previous drawNurse draw Performed By: #### 1 0070, 48172 ####[facility] [place] [address], [facility] ALT [Catalytic activity/Vol] 9 U/L Normal 7-52 [facility] Comment on above: Order Comment: No: D o not add to previous drawNurse draw Performed By: #### 1 0070, 95147 ####[facility] [place] [address], [facility] AST [Catalytic activity/Vol] 11 U/L Low 13-39 [facility] Comment on above: Order Comment: No: D o not add to previous drawNurse draw Performed By: #### 1 0070, 04205 ####[facility] [place] [address], [facility] Bilirubin [Mass/Vol] 0.6 mg/dL Normal 0.3-1.0 [facility] Comment on above: Order Comment: No: D o not add to previous drawNurse draw Performed By: #### 1 0, 04775 ####[facility] [id number], [facility] Calcium [Mass/Vol] 8.4 mg/dL Low 8.6-10.3 [facility] Comment on above: Order Comment: No: D o not add to previous drawNurse draw Performed By: #### 1 0, 58112 ####[facility] [place] [address], [facility] Chloride [Moles/Vol] 102 mmol/L Normal 98-107 [facility] Comment on above: Order Comment: No: D o not add to previous drawNurse draw Performed By: #### 1 0, 94045 ####[facility] [place] [address], [facility] CO2 [Moles/Vol] 27 mmol/L Normal 21-31 [facility] Comment on above: Order Comment: No: D o not add to previous drawNurse draw Performed By: #### 1 0, 31354 ####[facility] [place] [address], [facility] Creatinine [Mass/Vol] 2.90 mg/dL High 0.70-1.30 [facility] Comment on above: Order Comment: No: D o not add to previous drawNurse draw Performed By: #### 1 0, 47797 ####[facility] [place] [address], [facility] eGFR- 26 ml/min/1.73sq m Abnormal >60 [facility] Comment on above: Order Comment: No: D o not add to previous drawNurse draw Result Comment: Calc ulation may not be valid for patients over 70 years Performed By: #### 1 0, 52891 ####[facility] [place] [address], [facility] eGFR- non- 21 ml/min/1.73sq m Abnormal >60 [facility] Comment on above: Order Comment: No: D o not add to previous drawNurse draw Result Comment: Calc ulation may not be valid for patients over 70 years Performed By: #### 1 0, 82485 ####[facility] [place] [address], [place] Glucose [Mass/Vol] 97 mg/dL Normal 70-100 [facility] Comment on above: Order Comment: No: D o not add to previous drawNurse draw Performed By: #### 1 69, 63830 ####[facility] [place] [address], [place] Potassium [Moles/Vol] 4.4 mmol/L Normal 3.5-5.1 [facility] Comment on above: Order Comment: No: D o not add to previous drawNurse draw Performed By: #### 1 69, 33607 ####[facility] [place] [address], [place] Protein [Mass/Vol] 6.5 g/dL Normal 6.0-8.3 [facility] Comment on above: Order Comment: No: D o not add to previous drawNurse draw Performed By: #### 1 69, 01725 ####[facility] [place] [address], [place] Sodium [Moles/Vol] 134 mmol/L Low 136-145 [facility] Comment on above: Order Comment: No: D o not add to previous drawNurse draw Performed By: #### 1 0, 58417 ####[facility] [place] [address], [place] Urea nitrogen [Mass/Vol] 31 mg/dL High 7-25 [facility] Comment on above: Order Comment: No: D o not add to previous drawNurse draw Performed By: #### 1 0, 29540 ####[facility] [place] [address], [facility] MAGNESIUM BLOODon 05-31-2021 Magnesium [Mass/Vol] 1.8 mg/dL Low 1.9-2.7 [facility] Comment on above: Performed By: #### 1 0070, 85352 ####[facility] [facility] [place] [address], [facility] POC GLUCOSE LABon 05-31-2021 Glucose [Mass/Vol] 120 mg/dL High 70-100 [facility] Comment on above: Performed By: #### 8 5499 ####[facility] [facility] [place] [address], [facility] Glucose [Mass/Vol] 124 mg/dL High 70-100 [facility] Comment on above: Performed By: #### 8 5499 ####[facility] [facility] [place] [address], [facility] Glucose [Mass/Vol] 136 mg/dL High 70-100 [facility] Comment on above: Performed By: #### 8 5499 ####[facility] [facility] [place] [address], [facility] Glucose [Mass/Vol] 115 mg/dL High 70-100 [facility] Comment on above: Performed By: #### 8 5499 ####[facility] [facility].[address] PORTABLE CHEST 1 VIEWon PORTABLE CHEST 1 VIEW Normal [facility] Comment on above: Order Comment: evalu ate for CHF PROTHROMBIN TIMEon INR Coag (PPP) [Relative time] 1.13 {INR} Normal 0.91-1.16 [facility] Comment on above: Result Comment: ACCC P RECOMMENDED INR FOR WARFARIN THERAPY CONDITION INRPROPHYLAXIS OF VENOUS THROMBOSIS 2-3(HIGH-RISK SURGERY)TREATMENT OF VENOUS THROMBOSIS 2-3TREATMENT OF PULMONARY EMBOLISM 2-3PREVENTION OF SYSTEMIC EMBOLISM: 2-3 ACUTE MYOCARDIAL INFARCTION TISSUE HEART VALVES VALVULAR HEART DISEASE ATRIAL FIBRILLATION RECURRENT SYSTEMIC EMBOLISMMECHANICAL HEART VALVE 2.5-3.5 FROM: ORAL ANTICOAGULANTS. MECHANISM OF ACTION, CLINICALEFFECTIVENESS, AND OPTIMAL THERAPEUTIC RANGE. [id number]. Performed By: #### 5 7307, 22198 ####[facility] [facility].[address] PT Coag (PPP) [Time] 14.5 s Normal 12.3-14.8 [facility] Comment on above: Result Comment: ALL RESULTS MUST BE INTERPRETED WITH RESPECT TO BLOOD DRAWING ARTIFACTOR DILUTION ERROR OF ANTICOAGULANT AT THE TIME OF SAMPLING. Performed By: #### 5 7307, 85213 ####[facility] [facility].[address] ALBUMIN BLOODon 05-30-2021 Albumin [Mass/Vol] 3.0 g/dL Low 3.5-5.7 [facility] Comment on above: Performed By: #### 1 69, , ####[facility] [facility] [place] [address], [facility] BASIC METABOLIC PANELon 10-0 Calcium [Mass/Vol] 8.6 mg/dL Normal 8.6-10.3 [facility] Comment on above: Order Comment: No: D o not add to previous draw Performed By: #### 1 69, , ####[facility] [facility] [place] [address], [facility] Chloride [Moles/Vol] 102 mmol/L Normal 98-107 [facility] Comment on above: Order Comment: No: D o not add to previous draw Performed By: #### 1 0, , 48345 ####[facility] [place] [address], [facility] CO2 [Moles/Vol] 25 mmol/L Normal 21-31 [facility] Comment on above: Order Comment: No: D o not add to previous draw Performed By: #### 1 0, , 89045 ####[facility] [place] [address], [facility] Creatinine [Mass/Vol] 2.49 mg/dL High 0.70-1.30 [facility] Comment on above: Order Comment: No: D o not add to previous draw Performed By: #### 1 69, , 30586 ####[facility] [place] [address], [facility] eGFR- 31 ml/min/1.73sq m Abnormal >60 [facility] Comment on above: Order Comment: No: D o not add to previous draw Result Comment: Calc ulation may not be valid for patients over 70 years Performed By: #### 1 69, , ####[facility] [place] [address], [facility] eGFR- non- 25 ml/min/1.73sq m Abnormal >60 [facility] Comment on above: Order Comment: No: D o not add to previous draw Result Comment: Calc ulation may not be valid for patients over 70 years Performed By: #### 1 69, , 06341 ####[facility] [place] [address], [place] Glucose [Mass/Vol] 100 mg/dL Normal 70-100 [facility] Comment on above: Order Comment: No: D o not add to previous draw Performed By: #### 1 69, , ####[facility] [place] [address], [facility] Potassium [Moles/Vol] 4.5 mmol/L Normal 3.5-5.1 [facility] Comment on above: Order Comment: No: D o not add to previous draw Performed By: #### 1 69, , ####[facility] Sodium [Moles/Vol] 134 mmol/L Low 136-145 [facility] Comment on above: Order Comment: No: D o not add to previous draw Performed By: #### 1 69, , ####[facility] Urea nitrogen [Mass/Vol] 32 mg/dL High 7-25 [facility] Comment on above: Order Comment: No: D o not add to previous draw Performed By: #### 1 69, , ####[facility] [facility].[address] CBC COMPLETE BLOOD COUNTon Erythrocyte distribution width (RBC) [Ratio] 15.7 % High 11.5-15.0 [facility] Comment on above: Order Comment: No: D o not add to previous draw Performed By: #### 5 0608 ####[facility] [place] [address], [facility] Hematocrit (Bld) [Volume fraction] 26.5 % Low 39.0-50.0 [facility] Comment on above: Order Comment: No: D o not add to previous draw Performed By: #### 5 0608 ####[facility] [place] [address], [facility] Hemoglobin (Bld) [Mass/Vol] 8.4 g/dL Low 13.0-17.0 [facility] Comment on above: Order Comment: No: D o not add to previous draw Performed By: #### 5 0608 ####[facility] MCH (RBC) [Entitic mass] 28.9 pg Normal 27.0-33.0 [facility] Comment on above: Order Comment: No: D o not add to previous draw Performed By: #### 5 0608 ####[facility] MCHC (RBC) [Mass/Vol] 31.7 g/dL Low 32.0-35.0 [facility] Comment on above: Order Comment: No: D o not add to previous draw Performed By: #### 5 0608 ####[place] [address] [address] MCV (RBC) [Entitic vol] 91.1 fL Normal 82.0-98.0 [facility] Comment on above: Order Comment: No: D o not add to previous draw Performed By: #### 5 0608 ####[place] [address] [address] Nucleated RBC/100 WBC (Bld) [Ratio] 0 % Normal 0-0 [facility] Comment on above: Order Comment: No: D o not add to previous draw Performed By: #### 5 0608 ####[facility] [place] [address] PLAT CNT 338 10*3/uL Normal 150-400 [facility] Comment on above: Order Comment: No: D o not add to previous draw Performed By: #### 5 0608 ####[facility] [place] [address] RBC (Bld) [#/Vol] 2.91 10*6/uL Low 4.20-5.70 [facility] Comment on above: Order Comment: No: D o not add to previous draw Performed By: #### 5 0608 ####[facility] [place] [address], [facility] WBC (Bld) [#/Vol] 7.23 10*3/uL Normal 4.00-10.60 [facility] Comment on above: Order Comment: No: D o not add to previous draw Performed By: #### 5 0608 ####[facility] [place] [address], [facility] CREATININE URINE RANDOMon Creatinine (U) [Mass/Vol] 39.0 mg/dL Normal [facility] Comment on above: Order Comment: No: D o not add to previous draw Result Comment: Ther e are no established reference values for random urine specimens Performed By: #### 2 5706, 74086 ####[facility] [place] [address], [facility] MAGNESIUM BLOODon 05-30-2021 Magnesium [Mass/Vol] 1.9 mg/dL Normal 1.9-2.7 [facility] Comment on above: Order Comment: No: D o not add to previous draw Performed By: #### 1 0070, 26638, 11007 ####[facility] [place] [address], [facility] POC GLUCOSE LABon 05-30-2021 Glucose [Mass/Vol] 155 mg/dL High 70-100 [facility] Comment on above: Performed By: #### 8 5499 ####[facility] [place] [address], [place] Glucose [Mass/Vol] 129 mg/dL High 70-100 [facility] Comment on above: Performed By: #### 8 5499 ####[facility] [place] [address], [place] Glucose [Mass/Vol] 147 mg/dL High 70-100 [facility] Comment on above: Performed By: #### 8 5499 ####[facility] [facility] [place] [address], [facility] PORTABLE CHEST 1 VIEWon PORTABLE CHEST 1 VIEW Normal [facility] Comment on above: Order Comment: Evalu ate for Atelectasis T PROT UR Isi 05-30-2021 U TOTAL PROTEIN 88.8 mg/dL Normal [facility] Comment on above: Order Comment: No: D o not add to previous draw Result Comment: Ther e are no established reference values for random urine specimens Performed By: #### 2 5706, 32520 ####[facility] [place] [address], [facility] URINE TRINH STAIN/EOSon EOSINOPHIL SMEAR NONE SEEN Normal NSN [facility] Comment on above: Order Comment: No: D o not add to previous draw [place] Normal [facility] Comment on above: Order Comment: No: D o not add to previous draw Result Comment: Test Performed by [employer] [address] [place] [address] [id number] - Hujngfhz 05/30/2021 20:40 US RENALon 05-30-2021 US RENAL Normal [facility] Comment on above: Order Comment: Other , FREDA BASIC METABOLIC PANELon Calcium [Mass/Vol] 8.4 mg/dL Low 8.6-10.3 [facility] Comment on above: Order Comment: No: D o not add to previous draw Performed By: #### 4 1000, 33358, 12310 ####[facility] [facility] [place] [address], [facility] Chloride [Moles/Vol] 102 mmol/L Normal 98-107 [facility] Comment on above: Order Comment: No: D o not add to previous draw Performed By: #### 4 1000, 93497, 28478 ####[facility] [place] [address], [facility] CO2 [Moles/Vol] 25 mmol/L Normal 21-31 [facility] Comment on above: Order Comment: No: D o not add to previous draw Performed By: #### 4 1000, 20519, 42487 ####[facility] [facility] [place] [address], [facility] Creatinine [Mass/Vol] 2.12 mg/dL High 0.70-1.30 [facility] Comment on above: Order Comment: No: D o not add to previous draw Performed By: #### 4 1000, 25100, 77301 ####[facility] [facility] [place] [address], [facility] eGFR- 37 ml/min/1.73sq m Abnormal >60 [facility] Comment on above: Order Comment: No: D o not add to previous draw Result Comment: Calc ulation may not be valid for patients over 70 years Performed By: #### 4 1000, 55490, 00776 ####[facility] [facility] [place] [address], [facility] eGFR- non- 30 ml/min/1.73sq m Abnormal >60 [facility] Comment on above: Order Comment: No: D o not add to previous draw Result Comment: Calc ulation may not be valid for patients over 70 years Performed By: #### 4 1000, 78805, 86308 ####[facility] [facility] [place] [address], [facility] Glucose [Mass/Vol] 103 mg/dL High 70-100 [facility] Comment on above: Order Comment: No: D o not add to previous draw Performed By: #### 4 1000, 89045, 78109 ####[facility] [place] [address], [facility] Potassium [Moles/Vol] 4.6 mmol/L Normal 3.5-5.1 [facility] Comment on above: Order Comment: No: D o not add to previous draw Performed By: #### 4 1000, 39818, 68012 ####[facility] [facility].[address] Sodium [Moles/Vol] 133 mmol/L Low 136-145 [facility] Comment on above: Order Comment: No: D o not add to previous draw Performed By: #### 4 1000, 85879, 82196 ####[facility] [facility].[address] Urea nitrogen [Mass/Vol] 33 mg/dL High 7-25 [facility] Comment on above: Order Comment: No: D o not add to previous draw Performed By: #### 4 1000, 97271, 39450 ####[facility] CBC COMPLETE BLOOD COUNTon Erythrocyte distribution width (RBC) [Ratio] 15.7 % High 11.5-15.0 [facility] Comment on above: Order Comment: No: D o not add to previous draw Performed By: #### 5 0608 ####[place] [address] [facility].[address] Hematocrit (Bld) [Volume fraction] 26.4 % Low 39.0-50.0 [facility] Comment on above: Order Comment: No: D o not add to previous draw Performed By: #### 5 0608 ####[facility] [facility].[address] Hemoglobin (Bld) [Mass/Vol] 8.4 g/dL Low 13.0-17.0 [facility] Comment on above: Order Comment: No: D o not add to previous draw Performed By: #### 5 0608 ####[address] MCH (RBC) [Entitic mass] 29.0 pg Normal 27.0-33.0 [facility] Comment on above: Order Comment: No: D o not add to previous draw Performed By: #### 5 0608 ####[facility] MCHC (RBC) [Mass/Vol] 31.8 g/dL Low 32.0-35.0 [facility] Comment on above: Order Comment: No: D o not add to previous draw Performed By: #### 5 0608 ####[facility] MCV (RBC) [Entitic vol] 91.0 fL Normal 82.0-98.0 [facility] Comment on above: Order Comment: No: D o not add to previous draw Performed By: #### 5 0608 ####[place] [address] [address] Nucleated RBC/100 WBC (Bld) [Ratio] 0 % Normal 0-0 [facility] Comment on above: Order Comment: No: D o not add to previous draw Performed By: #### 5 0608 ####[facility] [facility].[address] PLAT CNT 346 10*3/uL Normal 150-400 [facility] Comment on above: Order Comment: No: D o not add to previous draw Performed By: #### 5 0608 ####[facility] [facility].[address] RBC (Bld) [#/Vol] 2.90 10*6/uL Low 4.20-5.70 [facility] Comment on above: Order Comment: No: D o not add to previous draw Performed By: #### 5 0608 ####[facility] [place] [address], [facility] WBC (Bld) [#/Vol] 7.17 10*3/uL Normal 4.00-10.60 [facility] Comment on above: Order Comment: No: D o not add to previous draw Performed By: #### 5 0608 ####[facility] [place] [address], [place] MAGNESIUM BLOODon 05-29-2021 Magnesium [Mass/Vol] 1.9 mg/dL Normal 1.9-2.7 [facility] Comment on above: Order Comment: No: D o not add to previous draw Performed By: #### 4 1000, 28517, 00012 ####[facility] [place] [address], [place] PHOSPHORUS BLOODon Phosphate [Mass/Vol] 4.4 mg/dL Normal 2.5-5.0 [facility] Comment on above: Order Comment: No: D o not add to previous draw Performed By: #### 4 1000, 67332, 26276 ####[facility] [place] [address], [place] POC GLUCOSE LABon 05-29-2021 Glucose [Mass/Vol] 183 mg/dL High 70-100 [facility] Comment on above: Performed By: #### 8 5499 ####[facility] [place] [address], [place] Glucose [Mass/Vol] 124 mg/dL High 70-100 [facility] Comment on above: Performed By: #### 8 5499 ####[facility] [place] [address], [place] Glucose [Mass/Vol] 187 mg/dL High 70-100 [facility] Comment on above: Performed By: #### 8 5499 ####[facility] [place] [address], [place] Glucose [Mass/Vol] 189 mg/dL High 70-100 [facility] Comment on above: Performed By: #### 8 5499 ####[facility] [place] [address], [facility] PORTABLE CHEST 1 VIEWon PORTABLE CHEST 1 VIEW Normal [facility] Comment on above: Order Comment: evalu ate for Atelectasis BASIC METABOLIC PANELon Calcium [Mass/Vol] 8.3 mg/dL Low 8.6-10.3 [facility] Comment on above: Order Comment: No: D o not add to previous draw Performed By: #### 2 5508, 85807, 29825, 02416 ####[facility] [place] [address], [facility] Chloride [Moles/Vol] 99 mmol/L Normal 98-107 [facility] Comment on above: Order Comment: No: D o not add to previous draw Performed By: #### 2 5508, 29338, 75753, 69308 ####[facility] [place] [address], [facility] CO2 [Moles/Vol] 26 mmol/L Normal 21-31 [facility] Comment on above: Order Comment: No: D o not add to previous draw Performed By: #### 2 5508, 35621, 02801, 60864 ####[facility] [place] [address], [facility] Creatinine [Mass/Vol] 2.18 mg/dL High 0.70-1.30 [facility] Comment on above: Order Comment: No: D o not add to previous draw Performed By: #### 2 5508, 40903, 95315, 90335 ####[facility] [place] [address], [facility] eGFR- 36 ml/min/1.73sq m Abnormal >60 [facility] Comment on above: Order Comment: No: D o not add to previous draw Result Comment: Calc ulation may not be valid for patients over 70 years Performed By: #### 2 5508, 44531, 75337, 02068 ####[facility] [facility].[address] eGFR- non- 29 ml/min/1.73sq m Abnormal >60 [facility] Comment on above: Order Comment: No: D o not add to previous draw Result Comment: Calc ulation may not be valid for patients over 70 years Performed By: #### 2 5508, 98548, 32285, 44329 ####[facility] [facility].[address] Glucose [Mass/Vol] 100 mg/dL Normal 70-100 [facility] Comment on above: Order Comment: No: D o not add to previous draw Performed By: #### 2 5508, 53519, 58374, 96204 ####[facility] [facility].[address] Potassium [Moles/Vol] 5.3 mmol/L High 3.5-5.1 [facility] Comment on above: Order Comment: No: D o not add to previous draw Performed By: #### 2 5508, 79701, 93195, 63120 ####[facility] [facility].[address] Sodium [Moles/Vol] 131 mmol/L Low 136-145 [facility] Comment on above: Order Comment: No: D o not add to previous draw Performed By: #### 2 5508, 09016, 29831, 62871 ####[facility] [facility] [place] [address], [facility] Urea nitrogen [Mass/Vol] 33 mg/dL High 7-25 [facility] Comment on above: Order Comment: No: D o not add to previous draw Performed By: #### 2 5508, 42493, 46150, 50958 ####[facility] [facility] [place] [address], [facility] CBC W/DIFFon 05-28-2021 ABS IMM GRANS 0.2 10*3/uL Normal 0.0-0.2 [facility] Comment on above: Performed By: #### 5 0103 ####[facility] [facility] [place] [address], [facility] ABS NEUTROPHILS 5.6 10*3/uL Normal 1.6-7.6 [facility] Comment on above: Performed By: #### 5 0103 ####[facility] [facility] [place] [address], [facility] Basophils (Bld) [#/Vol] 0.0 10*3/uL Normal 0.0-0.2 [facility] Comment on above: Performed By: #### 5 0103 ####[facility] [facility] [place] [address], [facility] Basophils/100 WBC (Bld) 0.5 % Normal 0.0-1.0 [facility] Comment on above: Performed By: #### 5 0103 ####[facility] [facility] [place] [address], [facility] Eosinophils (Bld) [#/Vol] 0.4 10*3/uL Normal 0.0-0.5 [facility] Comment on above: Performed By: #### 5 0103 ####[facility] [facility] [place] [address], [facility] Eosinophils/100 WBC (Bld) 4.5 % Normal 0.0-6.0 [facility] Comment on above: Performed By: #### 5 0103 ####[facility] [facility].[address] Erythrocyte distribution width (RBC) [Ratio] 15.6 % High 11.5-15.0 [facility] Comment on above: Performed By: #### 5 3 ####[facility] [facility] [place] [address], [facility] Hematocrit (Bld) [Volume fraction] 27.7 % Low 39.0-50.0 [facility] Comment on above: Performed By: #### 5 0103 ####[facility] [facility].[address] Hemoglobin (Bld) [Mass/Vol] 8.6 g/dL Low 13.0-17.0 [facility] Comment on above: Performed By: #### 5 0103 ####[facility] IMMATURE GRANS 1.8 % High 0.0-1.0 [facility] Comment on above: Performed By: #### 5 0103 ####[address] Lymphocytes (Bld) [#/Vol] 1.8 10*3/uL Normal 1.2-4.0 [facility] Comment on above: Performed By: #### 5 0103 ####[facility] Lymphocytes/100 WBC (Bld) 20.4 % Normal 20.0-45.0 [facility] Comment on above: Performed By: #### 5 3 ####[place] [address] [facility].[address] MCH (RBC) [Entitic mass] 28.6 pg Normal 27.0-33.0 [facility] Comment on above: Performed By: #### 5 3 ####[facility] [facility].[address] MCHC (RBC) [Mass/Vol] 31.0 g/dL Low 32.0-35.0 [facility] Comment on above: Performed By: #### 3 ####[facility] [place] [address].[address] MCV (RBC) [Entitic vol] 92.0 fL Normal 82.0-98.0 [facility] Comment on above: Performed By: #### 5 0103 ####[facility] [facility] [place] [address], [facility] Monocytes (Bld) [#/Vol] 0.9 10*3/uL Normal 0.1-1.0 [facility] Comment on above: Performed By: #### 5 0103 ####[facility] [facility] [place] [address], [facility] MONOS 9.9 % Normal 5.0-12.0 [facility] Comment on above: Performed By: #### 5 102 ####[facility] [facility] [place] [address], [facility] Neutrophils/100 WBC (Bld) 62.9 % Normal 40.0-72.0 [facility] Comment on above: Performed By: #### 3 ####[facility] [facility] [place] [address], [facility] Nucleated RBC/100 WBC (Bld) [Ratio] 0 % Normal 0-0 [facility] Comment on above: Performed By: #### 5 3 ####[facility] [facility] [place] [address], [facility] PLAT CNT 387 10*3/uL Normal 150-400 [facility] Comment on above: Performed By: #### 5 3 ####[facility] [facility] [place] [address], [facility] RBC (Bld) [#/Vol] 3.01 10*6/uL Low 4.20-5.70 [facility] Comment on above: Performed By: #### 102 ####[facility] [facility] [place] [address], [facility] WBC (Bld) [#/Vol] 8.82 10*3/uL Normal 4.00-10.60 [facility] Comment on above: Performed By: #### 5 0103 ####[facility] [place] [address], [facility] CPKon 05-28-2021 CK [Catalytic activity/Vol] 19 U/L Low 30-223 [facility] Comment on above: Performed By: #### 2 5508, 52972, 10203, 94083 ####[facility] [place] [address], [facility] MAGNESIUM BLOODon 05-28-2021 Magnesium [Mass/Vol] 1.9 mg/dL Normal 1.9-2.7 [facility] Comment on above: Order Comment: No: D o not add to previous draw Performed By: #### 2 5508, 48990, 70134, 78339 ####[facility] [facility] Operative Reporton 1 Operative Report Normal [facility] PHOSPHORUS BLOODon 1 Phosphate [Mass/Vol] 4.5 mg/dL Normal 2.5-5.0 [facility] Comment on above: Performed By: #### 2 5508, 19914, 74934, 78977 ####[facility] [place] [address], [facility] POC GLUCOSE LABon 05-28-2021 Glucose [Mass/Vol] 120 mg/dL High 70-100 [facility] Comment on above: Performed By: #### 8 5499 ####[facility] [place] [address], [facility] Glucose [Mass/Vol] 130 mg/dL High 70-100 [facility] Comment on above: Performed By: #### 8 5499 ####[facility] [place] [address], [facility] Glucose [Mass/Vol] 117 mg/dL High 70-100 [facility] Comment on above: Performed By: #### 8 5499 ####[facility] [place] [address], [place] Glucose [Mass/Vol] 175 mg/dL High 70-100 [facility] Comment on above: Performed By: #### 8 5499 ####[facility] [place] [address], [place] Glucose [Mass/Vol] 107 mg/dL High 70-100 [facility] Comment on above: Performed By: #### 8 5499 ####[facility] [place] [address], [place] BASIC METABOLIC PANELon 10-0 Calcium [Mass/Vol] 8.4 mg/dL Low 8.6-10.3 [facility] Comment on above: Order Comment: No: D o not add to previous draw Performed By: #### 0 0071, 14790, 44204 ####[facility] [place] [address], [place] Chloride [Moles/Vol] 99 mmol/L Normal 98-107 [facility] Comment on above: Order Comment: No: D o not add to previous draw Performed By: #### 0 0071, 95585, 57163 ####[facility] [place] [address], [place] CO2 [Moles/Vol] 29 mmol/L Normal 21-31 [facility] Comment on above: Order Comment: No: D o not add to previous draw Performed By: #### 0 0071, 22580, 57684 ####[facility] [place] [address], [place] Creatinine [Mass/Vol] 1.78 mg/dL High 0.70-1.30 [facility] Comment on above: Order Comment: No: D o not add to previous draw Performed By: #### 0 0071, 24927, 43425 ####[facility] [place] [address], [facility] eGFR- 45 ml/min/1.73sq m Abnormal >60 [facility] Comment on above: Order Comment: No: D o not add to previous draw Result Comment: Calc ulation may not be valid for patients over 70 years Performed By: #### 0 0071, , 23793 ####[facility] [place] [address], [facility] eGFR- non- 37 ml/min/1.73sq m Abnormal >60 [facility] Comment on above: Order Comment: No: D o not add to previous draw Result Comment: Calc ulation may not be valid for patients over 70 years Performed By: #### 0 0071, , 42564 ####[facility] [place] [address], [place] Glucose [Mass/Vol] 96 mg/dL Normal 70-100 [facility] Comment on above: Order Comment: No: D o not add to previous draw Performed By: #### 0 0071, , 52182 ####[facility] [place] [address], [place] Potassium [Moles/Vol] 4.7 mmol/L Normal 3.5-5.1 [facility] Comment on above: Order Comment: No: D o not add to previous draw Performed By: #### 0 0071, , 02920 ####[facility] [place] [address], [place] Sodium [Moles/Vol] 133 mmol/L Low 136-145 [facility] Comment on above: Order Comment: No: D o not add to previous draw Performed By: #### 0 0071, , 10561 ####[facility] [place] [address], [place] Urea nitrogen [Mass/Vol] 33 mg/dL High 7-25 [facility] Comment on above: Order Comment: No: D o not add to previous draw Performed By: #### 0 0071, 48657, 76134 ####[facility]3000 [facility].[address] C REACTIVE PROTEINon CRP [Mass/Vol] 47.2 mg/L High 0.0-7.0 [facility] Comment on above: Order Comment: Yes: Add to Previous draw if able Performed By: #### 6 1405 ####[facility]3000 [facility].[address] CBC COMPLETE BLOOD COUNTon Erythrocyte distribution width (RBC) [Ratio] 15.5 % High 11.5-15.0 [facility] Comment on above: Order Comment: No: D o not add to previous drawNurse draw Performed By: #### 5 6506, 11142 ####[facility]3000 [facility].[address] Hematocrit (Bld) [Volume fraction] 24.7 % Low 39.0-50.0 [facility] Comment on above: Order Comment: No: D o not add to previous drawNurse draw Performed By: #### 5 6506, 96673 ####[facility] [facility].[address] Hemoglobin (Bld) [Mass/Vol] 7.7 g/dL Low 13.0-17.0 [facility] Comment on above: Order Comment: No: D o not add to previous drawNurse draw Performed By: #### 5 6506, 43549 ####[facility] [facility] [place] [address], [facility] MCH (RBC) [Entitic mass] 28.5 pg Normal 27.0-33.0 [facility] Comment on above: Order Comment: No: D o not add to previous drawNurse draw Performed By: #### 5 6506, 50601 ####[facility] MCHC (RBC) [Mass/Vol] 31.2 g/dL Low 32.0-35.0 [facility] Comment on above: Order Comment: No: D o not add to previous drawNurse draw Performed By: #### 5 6506, 20723 ####[facility] [facility] MCV (RBC) [Entitic vol] 91.5 fL Normal 82.0-98.0 [facility] Comment on above: Order Comment: No: D o not add to previous drawNurse draw Performed By: #### 5 6506, 77700 ####[facility] [facility] Nucleated RBC/100 WBC (Bld) [Ratio] 0 % Normal 0-0 [facility] Comment on above: Order Comment: No: D o not add to previous drawNurse draw Performed By: #### 5 6506, 04186 ####[facility] [facility] [place] [address], [facility] PLAT CNT 332 10*3/uL Normal 150-400 [facility] Comment on above: Order Comment: No: D o not add to previous drawNurse draw Performed By: #### 5 6506, 28454 ####[facility] [facility] [place] [address], [facility] RBC (Bld) [#/Vol] 2.70 10*6/uL Low 4.20-5.70 [facility] Comment on above: Order Comment: No: D o not add to previous drawNurse draw Performed By: #### 5 6506, 39883 ####[facility] [place] [address], [facility] WBC (Bld) [#/Vol] 7.87 10*3/uL Normal 4.00-10.60 [facility] Comment on above: Order Comment: No: D o not add to previous drawNurse draw Performed By: #### 5 6506, 20402 ####[facility] [place] [address], [facility] MAGNESIUM BLOODon 05-27-2021 Magnesium [Mass/Vol] 2.1 mg/dL Normal 1.9-2.7 [facility] Comment on above: Order Comment: No: D o not add to previous draw Performed By: #### 0 0071, 18615, 53162 ####[facility] [place] [address], [facility] POC GLUCOSE LABon 05-27-2021 Glucose [Mass/Vol] 134 mg/dL High 70-100 [facility] Comment on above: Performed By: #### 8 5499 ####[facility] [place] [address], [place] Glucose [Mass/Vol] 109 mg/dL High 70-100 [facility] Comment on above: Performed By: #### 8 5499 ####[facility] [place] [address], [place] Glucose [Mass/Vol] 151 mg/dL High 70-100 [facility] Comment on above: Performed By: #### 8 5499 ####[facility] [place] [address], [place] Glucose [Mass/Vol] 114 mg/dL High 70-100 [facility] Comment on above: Performed By: #### 8 5499 ####[facility] [place] [address], [facility] PORTABLE CHEST 1 VIEWon PORTABLE CHEST 1 VIEW Normal [facility] Comment on above: Order Comment: evalu ate for Atelectasis RBC'S 1 UNITon 05-27-2021 CROSSMATCH INTERP 1 COMP Normal [facility] Comment on above: Performed By: #### 8 6001 ####[facility] PRODUCT CODE 1 E0336 Normal [facility] Comment on above: Performed By: #### 8 6001 ####[facility] PRODUCT STATUS 1 PT Normal [facility] Comment on above: Result Comment: Resu lt changed by IF on 05/27/2021 11:45. The previous value was XM.Result changed by IF on 05/28/2021 00:30. The previous value was IS. Performed By: #### 8 6001 ####[facility]3000 [facility].[address] UNIT ABO 1 O Normal [facility] Comment on above: Performed By: #### 8 6001 ####[facility] [facility].[address] UNIT ID 1 [id number] Normal [facility] Comment on above: Performed By: #### 8 6001 ####[facility]3000 [facility].[address] UNIT RH 1 Negative Normal [facility] Comment on above: Performed By: #### 8 6001 ####[facility]3000 [facility].[address] SEDIMENTATION RATEon 021 SED RATE 48 mm/hr High 0-10 [facility] Comment on above: Performed By: #### 5 6506, 53543 ####[facility]3000 [facility].[address] VANCOMYCIN RANDOMon 05-27-20 21 VANCOMYCIN RAND 12.2 mcg/mL Normal [facility] Comment on above: Performed By: #### 0 0071, 85026, 48023 ####[facility] [place] [address], [facility] BASIC METABOLIC PANELon 10-0 Calcium [Mass/Vol] 8.2 mg/dL Low 8.6-10.3 [facility] Comment on above: Order Comment: No: D o not add to previous draw Performed By: #### 1 69, 80701 ####[facility] [id number], [facility] Chloride [Moles/Vol] 98 mmol/L Normal 98-107 [facility] Comment on above: Order Comment: No: D o not add to previous draw Performed By: #### 1 69, 56762 ####[facility] [facility] [place] [address], [facility] CO2 [Moles/Vol] 30 mmol/L Normal 21-31 [facility] Comment on above: Order Comment: No: D o not add to previous draw Performed By: #### 1 69, 11442 ####[facility] [place] [address], [facility] Creatinine [Mass/Vol] 1.78 mg/dL High 0.70-1.30 [facility] Comment on above: Order Comment: No: D o not add to previous draw Performed By: #### 1 69, 31381 ####[facility] [facility].[address] eGFR- 45 ml/min/1.73sq m Abnormal >60 [facility] Comment on above: Order Comment: No: D o not add to previous draw Result Comment: Calc ulation may not be valid for patients over 70 years Performed By: #### 1 69, 20397 ####[facility] [place] [address], [facility] eGFR- non- 37 ml/min/1.73sq m Abnormal >60 [facility] Comment on above: Order Comment: No: D o not add to previous draw Result Comment: Calc ulation may not be valid for patients over 70 years Performed By: #### 1 69, 82377 ####[facility] [place] [address], [facility] Glucose [Mass/Vol] 97 mg/dL Normal 70-100 [facility] Comment on above: Order Comment: No: D o not add to previous draw Performed By: #### 1 69, 25594 ####[facility] [place] [address], [facility] Potassium [Moles/Vol] 4.8 mmol/L Normal 3.5-5.1 [facility] Comment on above: Order Comment: No: D o not add to previous draw Performed By: #### 1 69, 69218 ####[facility] [place] [address], [facility] Sodium [Moles/Vol] 131 mmol/L Low 136-145 [facility] Comment on above: Order Comment: No: D o not add to previous draw Performed By: #### 1 69, 67843 ####[facility] Urea nitrogen [Mass/Vol] 35 mg/dL High 7-25 [facility] Comment on above: Order Comment: No: D o not add to previous draw Performed By: #### 1 69, 79604 ####[facility] [facility].[address] CBC COMPLETE BLOOD COUNTon Erythrocyte distribution width (RBC) [Ratio] 15.4 % High 11.5-15.0 [facility] Comment on above: Order Comment: No: D o not add to previous drawNurse draw Performed By: #### 5 0608 ####[facility] [place] [address], [facility] Hematocrit (Bld) [Volume fraction] 24.3 % Low 39.0-50.0 [facility] Comment on above: Order Comment: No: D o not add to previous drawNurse draw Performed By: #### 5 0608 ####[facility]3000 [facility].[address] Hemoglobin (Bld) [Mass/Vol] 7.9 g/dL Low 13.0-17.0 [facility] Comment on above: Order Comment: No: D o not add to previous drawNurse draw Performed By: #### 5 0608 ####[facility] MCH (RBC) [Entitic mass] 28.6 pg Normal 27.0-33.0 [facility] Comment on above: Order Comment: No: D o not add to previous drawNurse draw Performed By: #### 5 0608 ####[facility] MCHC (RBC) [Mass/Vol] 32.5 g/dL Normal 32.0-35.0 [facility] Comment on above: Order Comment: No: D o not add to previous drawNurse draw Performed By: #### 5 0608 ####[address] MCV (RBC) [Entitic vol] 88.0 fL Normal 82.0-98.0 [facility] Comment on above: Order Comment: No: D o not add to previous drawNurse draw Performed By: #### 5 0608 ####[facility] Nucleated RBC/100 WBC (Bld) [Ratio] 0 % Normal 0-0 [facility] Comment on above: Order Comment: No: D o not add to previous drawNurse draw Performed By: #### 5 0608 ####[address] PLAT CNT 320 10*3/uL Normal 150-400 [facility] Comment on above: Order Comment: No: D o not add to previous drawNurse draw Performed By: #### 5 0608 ####[facility] [place] [address], [facility] RBC (Bld) [#/Vol] 2.76 10*6/uL Low 4.20-5.70 [facility] Comment on above: Order Comment: No: D o not add to previous drawNurse draw Performed By: #### 5 0608 ####[facility] [place] [address], [place] WBC (Bld) [#/Vol] 7.52 10*3/uL Normal 4.00-10.60 [facility] Comment on above: Order Comment: No: D o not add to previous drawNurse draw Performed By: #### 5 0608 ####[facility] [place] [address], [facility] MAGNESIUM BLOODon 05-26-2021 Magnesium [Mass/Vol] 2.1 mg/dL Normal 1.9-2.7 [facility] Comment on above: Order Comment: No: D o not add to previous draw Performed By: #### 1 0070, 99878 ####[facility] [place] [address], [place] POC GLUCOSE LABon 05-26-2021 Glucose [Mass/Vol] 138 mg/dL High 70-100 [facility] Comment on above: Performed By: #### 8 5499 ####[facility] [place] [address], [place] Glucose [Mass/Vol] 119 mg/dL High 70-100 [facility] Comment on above: Performed By: #### 8 5499 ####[facility] [place] [address], [place] Glucose [Mass/Vol] 118 mg/dL High 70-100 [facility] Comment on above: Performed By: #### 8 5499 ####[facility] [place] [address], [facility] PORTABLE CHEST 1 VIEWon 100 PORTABLE CHEST 1 VIEW Normal [facility] Comment on above: Order Comment: evalu ate for Atelectasis BASIC METABOLIC PANELon 10-0 Calcium [Mass/Vol] 8.1 mg/dL Low 8.6-10.3 [facility] Comment on above: Order Comment: No: D o not add to previous draw Performed By: #### 3 0953, 68292, 88914 ####[facility] [place] [address], [facility] Chloride [Moles/Vol] 95 mmol/L Low 98-107 [facility] Comment on above: Order Comment: No: D o not add to previous draw Performed By: #### 3 0953, 27084, 74710 ####[facility] CO2 [Moles/Vol] 27 mmol/L Normal 21-31 [facility] Comment on above: Order Comment: No: D o not add to previous draw Performed By: #### 3 0953, 36202, 09317 ####[facility] Creatinine [Mass/Vol] 2.13 mg/dL High 0.70-1.30 [facility] Comment on above: Order Comment: No: D o not add to previous draw Performed By: #### 3 0953, 72090, 99476 ####[facility] eGFR- 37 ml/min/1.73sq m Abnormal >60 [facility] Comment on above: Order Comment: No: D o not add to previous draw Result Comment: Calc ulation may not be valid for patients over 70 years Performed By: #### 3 0953, 86760, 13195 ####[facility] eGFR- non- 30 ml/min/1.73sq m Abnormal >60 [facility] Comment on above: Order Comment: No: D o not add to previous draw Result Comment: Calc ulation may not be valid for patients over 70 years Performed By: #### 3 0953, 54956, 85083 ####[facility] [place] [address], [facility] Glucose [Mass/Vol] 122 mg/dL High 70-100 [facility] Comment on above: Order Comment: No: D o not add to previous draw Performed By: #### 3 53, 22776, 16524 ####[facility] [place] [address], [facility] Potassium [Moles/Vol] 4.8 mmol/L Normal 3.5-5.1 [facility] Comment on above: Order Comment: No: D o not add to previous draw Performed By: #### 3 952, 71606, 33341 ####[facility] Sodium [Moles/Vol] 128 mmol/L Low 136-145 [facility] Comment on above: Order Comment: No: D o not add to previous draw Performed By: #### 3 53, 77373, 81368 ####[facility] Urea nitrogen [Mass/Vol] 35 mg/dL High 7-25 [facility] Comment on above: Order Comment: No: D o not add to previous draw Performed By: #### 3 0953, 44135, 78670 ####[facility] CBC COMPLETE BLOOD COUNTon - Erythrocyte distribution width (RBC) [Ratio] 15.8 % High 11.5-15.0 [facility] Comment on above: Order Comment: No: D o not add to previous draw Performed By: #### 5 0608 ####[facility]3000 [facility].[address] Hematocrit (Bld) [Volume fraction] 22.3 % Low 39.0-50.0 [facility] Comment on above: Order Comment: No: D o not add to previous draw Performed By: #### 5 0608 ####[facility] Hemoglobin (Bld) [Mass/Vol] 7.3 g/dL Low 13.0-17.0 [facility] Comment on above: Order Comment: No: D o not add to previous draw Performed By: #### 5 0608 ####[address] MCH (RBC) [Entitic mass] 28.7 pg Normal 27.0-33.0 [facility] Comment on above: Order Comment: No: D o not add to previous draw Performed By: #### 5 0608 ####[address] MCHC (RBC) [Mass/Vol] 32.7 g/dL Normal 32.0-35.0 [facility] Comment on above: Order Comment: No: D o not add to previous draw Performed By: #### 5 0608 ####[facility] [place] [address] MCV (RBC) [Entitic vol] 87.8 fL Normal 82.0-98.0 [facility] Comment on above: Order Comment: No: D o not add to previous draw Performed By: #### 5 0608 ####[address] Nucleated RBC/100 WBC (Bld) [Ratio] 0 % Normal 0-0 [facility] Comment on above: Order Comment: No: D o not add to previous draw Performed By: #### 5 0608 ####[facility] [place] [address], [facility] PLAT CNT 292 10*3/uL Normal 150-400 [facility] Comment on above: Order Comment: No: D o not add to previous draw Performed By: #### 5 0608 ####[facility] [place] [address], [facility] RBC (Bld) [#/Vol] 2.54 10*6/uL Low 4.20-5.70 [facility] Comment on above: Order Comment: No: D o not add to previous draw Performed By: #### 5 0608 ####[facility] [place] [address], [facility] WBC (Bld) [#/Vol] 8.90 10*3/uL Normal 4.00-10.60 [facility] Comment on above: Order Comment: No: D o not add to previous draw Performed By: #### 5 0608 ####[facility] HEMATOCRITon 05-25-2021 Hematocrit (Bld) [Volume fraction] 25.1 % Low 39.0-50.0 [facility] Comment on above: Order Comment: No: D o not add to previous draw Performed By: #### 9 2088, 07379 ####[facility] HEMOGLOBINon 05-25-2021 Hemoglobin (Bld) [Mass/Vol] 8.4 g/dL Low 13.0-17.0 [facility] Comment on above: Order Comment: No: D o not add to previous draw Performed By: #### 9 2088, 36716 ####[facility] [place] [address], [facility] MAGNESIUM BLOODon 05-25-2021 Magnesium [Mass/Vol] 2.0 mg/dL Normal 1.9-2.7 [facility] Comment on above: Order Comment: No: D o not add to previous draw Performed By: #### 3 0953, 09199, 84939 ####[facility] [facility] [place] [address], [facility] POC GLUCOSE LABon 05-25-2021 Glucose [Mass/Vol] 136 mg/dL High 70-100 [facility] Comment on above: Performed By: #### 8 5499 ####[facility] [facility] [place] [address], [facility] Glucose [Mass/Vol] 115 mg/dL High 70-100 [facility] Comment on above: Performed By: #### 8 5499 ####[facility] [facility] [place] [address], [facility] Glucose [Mass/Vol] 72 mg/dL Normal 70-100 [facility] Comment on above: Performed By: #### 8 5499 ####[facility] [facility] [place] [address], [facility] Glucose [Mass/Vol] 154 mg/dL High 70-100 [facility] Comment on above: Performed By: #### 8 5499 ####[facility] [facility] [place] [address], [facility] PORTABLE CHEST 1 VIEWon - PORTABLE CHEST 1 VIEW Normal [facility] Comment on above: Order Comment: Evalu ate for Effusion RBC'S 2 UNITSon 05-25-2021 CROSSMATCH INTERP 1 COMP Normal [facility] Comment on above: Performed By: #### 8 6002 ####[facility] [facility] [place] [address], [facility] CROSSMATCH INTERP 2 COMP Normal [facility] Comment on above: Performed By: #### 8 6002 ####[facility] [place] [address], [facility] PRODUCT CODE 1 E0686 Normal [facility] Comment on above: Performed By: #### 8 6002 ####[facility] [place] [address], [place] PRODUCT CODE 2 E0336 Normal [facility] Comment on above: Performed By: #### 8 6002 ####[facility] [place] [address], [place] PRODUCT STATUS 1 PT Normal [facility] Comment on above: Result Comment: Resu lt changed by IF on 05/25/2021 13:50. The previous value was XM.Result changed by IF on 05/26/2021 00:30. The previous value was IS. Performed By: #### 8 6002 ####[facility] [facility] [place] [address], [facility] PRODUCT STATUS 2 PT Normal [facility] Comment on above: Result Comment: Resu lt changed by IF on 05/25/2021 09:50. The previous value was XM.Result changed by IF on 05/26/2021 00:30. The previous value was IS. Performed By: #### 8 6002 ####[facility] [place] [address], [place] UNIT ABO 1 O Normal [facility] Comment on above: Performed By: #### 8 6002 ####[facility] [place] [address], [place] UNIT ABO 2 O Normal [facility] Comment on above: Performed By: #### 8 6002 ####[facility] [place] [address], [place] UNIT ID 1 [id number] Normal [facility] Comment on above: Performed By: #### 8 6002 ####[facility] UNIT ID 2 [id number] Normal [facility] Comment on above: Performed By: #### 8 6002 ####[facility] [place] [address], [facility] UNIT RH 1 Positive Normal [facility] Comment on above: Performed By: #### 8 6002 ####[facility] [place] [address], [facility] UNIT RH 2 Positive Normal [facility] Comment on above: Performed By: #### 8 6002 ####[facility] [facility] [place] [address], [facility] VANCOMYCIN TIMEDon VANCOMYCIN TIMED 24.3 mcg/mL Normal [facility] Comment on above: Performed By: #### 3 0953, 12203, 26558 ####[facility] [facility] [place] [address], [facility] BASIC METABOLIC PANELon 10-0 Calcium [Mass/Vol] 7.8 mg/dL Low 8.6-10.3 [facility] Comment on above: Order Comment: No: D o not add to previous draw Performed By: #### 0 0071, 70851, 71688, 69389 ####[facility] [place] [address], [facility] Chloride [Moles/Vol] 97 mmol/L Low 98-107 [facility] Comment on above: Order Comment: No: D o not add to previous draw Performed By: #### 0 0071, 17135, 56340, 19745 ####[facility] [facility] [place] [address], [facility] CO2 [Moles/Vol] 30 mmol/L Normal 21-31 [facility] Comment on above: Order Comment: No: D o not add to previous draw Performed By: #### 0 0071, 22763, 49034, 89198 ####[facility] [place] [address], [facility] Creatinine [Mass/Vol] 1.70 mg/dL High 0.70-1.30 [facility] Comment on above: Order Comment: No: D o not add to previous draw Performed By: #### 0 0071, 37637, 84395, 67957 ####[facility] [place] [address], [facility] eGFR- 48 ml/min/1.73sq m Abnormal >60 [facility] Comment on above: Order Comment: No: D o not add to previous draw Result Comment: Calc ulation may not be valid for patients over 70 years Performed By: #### 0 0071, 22796, 31005, 80205 ####[facility] [place] [address], [facility] eGFR- non- 39 ml/min/1.73sq m Abnormal >60 [facility] Comment on above: Order Comment: No: D o not add to previous draw Result Comment: Calc ulation may not be valid for patients over 70 years Performed By: #### 0 0071, 36477, 30517, 18348 ####[facility] [place] [address], [facility] Glucose [Mass/Vol] 132 mg/dL High 70-100 [facility] Comment on above: Order Comment: No: D o not add to previous draw Performed By: #### 0 0071, 91905, 98667, 61238 ####[facility] [place] [address], [facility] Potassium [Moles/Vol] 5.2 mmol/L High 3.5-5.1 [facility] Comment on above: Order Comment: No: D o not add to previous draw Performed By: #### 0 0071, 60569, 03059, 08484 ####[facility]3000 [facility].[address] Sodium [Moles/Vol] 131 mmol/L Low 136-145 [facility] Comment on above: Order Comment: No: D o not add to previous draw Performed By: #### 0 0071, 35102, 80119, 47929 ####[facility]3000 [facility].[address] Urea nitrogen [Mass/Vol] 27 mg/dL High 7-25 [facility] Comment on above: Order Comment: No: D o not add to previous draw Performed By: #### 0 0071, 47593, 37534, 99068 ####[facility] CBC COMPLETE BLOOD COUNTon Erythrocyte distribution width (RBC) [Ratio] 14.5 % Normal 11.5-15.0 [facility] Comment on above: Order Comment: No: D o not add to previous draw Performed By: #### 5 0608 ####[facility]3000 [facility].[address] Hematocrit (Bld) [Volume fraction] 23.1 % Low 39.0-50.0 [facility] Comment on above: Order Comment: No: D o not add to previous draw Performed By: #### 5 0608 ####[facility]3000 [facility].[address] Hemoglobin (Bld) [Mass/Vol] 7.4 g/dL Low 13.0-17.0 [facility] Comment on above: Order Comment: No: D o not add to previous draw Performed By: #### 5 0608 ####[facility] [place] [address] MCH (RBC) [Entitic mass] 28.9 pg Normal 27.0-33.0 [facility] Comment on above: Order Comment: No: D o not add to previous draw Performed By: #### 5 0608 ####[facility] [facility].[address] MCHC (RBC) [Mass/Vol] 32.0 g/dL Normal 32.0-35.0 [facility] Comment on above: Order Comment: No: D o not add to previous draw Performed By: #### 5 0608 ####[facility] [facility].[address] MCV (RBC) [Entitic vol] 90.2 fL Normal 82.0-98.0 [facility] Comment on above: Order Comment: No: D o not add to previous draw Performed By: #### 5 0608 ####[place] [id number] [facility].[address] Nucleated RBC/100 WBC (Bld) [Ratio] 0 % Normal 0-0 [facility] Comment on above: Order Comment: No: D o not add to previous draw Performed By: #### 5 0608 ####[facility]3000 [facility].[address] PLAT CNT 312 10*3/uL Normal 150-400 [facility] Comment on above: Order Comment: No: D o not add to previous draw Performed By: #### 5 0608 ####[address] RBC (Bld) [#/Vol] 2.56 10*6/uL Low 4.20-5.70 [facility] Comment on above: Order Comment: No: D o not add to previous draw Performed By: #### 5 0608 ####[facility] [place] [address].[address] WBC (Bld) [#/Vol] 10.23 10*3/uL Normal 4.00-10.60 [facility] Comment on above: Order Comment: No: D o not add to previous draw Performed By: #### 5 0608 ####[facility] [place] [address], [place] MAGNESIUM BLOODon 05-24-2021 Magnesium [Mass/Vol] 1.8 mg/dL Low 1.9-2.7 [facility] Comment on above: Order Comment: No: D o not add to previous draw Performed By: #### 0 0071, 06608, 30358, 27338 ####[facility] [place] [address], [place] PHOSPHORUS BLOODon Phosphate [Mass/Vol] 5.0 mg/dL Normal 2.5-5.0 [facility] Comment on above: Order Comment: No: D o not add to previous draw Performed By: #### 0 0071, 18981, 14011, 02178 ####[facility] [place] [address], [place] POC GLUCOSE LABon 05-24-2021 Glucose [Mass/Vol] 156 mg/dL High 70-100 [facility] Comment on above: Performed By: #### 8 5499 ####[facility] [place] [address], [place] Glucose [Mass/Vol] 129 mg/dL High 70-100 [facility] Comment on above: Performed By: #### 8 5499 ####[facility] [place] [address], [place] Glucose [Mass/Vol] 188 mg/dL High 70-100 [facility] Comment on above: Performed By: #### 8 5499 ####[facility] [place] [address], [place] Glucose [Mass/Vol] 141 mg/dL High 70-100 [facility] Comment on above: Performed By: #### 8 5499 ####[facility] [place] [address], [place] RBC'S 1 UNITon 05-24-2021 CROSSMATCH INTERP 1 COMP Normal [facility] Comment on above: Performed By: #### 8 6001 ####[facility] PRODUCT CODE 1 E0332 Normal [facility] Comment on above: Performed By: #### 8 6001 ####[facility] [facility].[address] PRODUCT STATUS 1 PT Normal [facility] Comment on above: Result Comment: Resu lt changed by IF on 05/24/2021 11:33. The previous value was XM.Result changed by IF on 05/25/2021 00:30. The previous value was IS. Performed By: #### 8 6001 ####[facility] [facility].[address] UNIT ABO 1 O Normal [facility] Comment on above: Performed By: #### 8 6001 ####[facility] [facility].[address] UNIT ID 1 [id number] Normal [facility] Comment on above: Performed By: #### 8 6001 ####[facility] [facility] [place] [address], [facility] UNIT RH 1 Positive Normal [facility] Comment on above: Performed By: #### 8 6001 ####[facility] [facility] [place] [address], [facility] TYPE AND SCREENon 05-24-2021 ABO INTERPRETATION O Normal [facility] Comment on above: Performed By: #### 6 2586 ####[facility] [place] [address], [facility] RH INTERPRETATION Positive Normal [facility] Comment on above: Performed By: #### 6 2586 ####[facility] [place] [address], [facility] VANCOMYCIN TIMEDon VANCOMYCIN TIMED 42.1 mcg/mL Normal [facility] Comment on above: Performed By: #### 0 0071, 51057, 74657, 11943 ####[facility] [facility] BASIC METABOLIC PANELon 09-3 Calcium [Mass/Vol] 8.7 mg/dL Normal 8.6-10.3 [facility] Comment on above: Order Comment: No: D o not add to previous draw Performed By: #### 4 1000, 02456, 66056 ####[facility] [facility] [place] [address], [facility] Chloride [Moles/Vol] 97 mmol/L Low 98-107 [facility] Comment on above: Order Comment: No: D o not add to previous draw Performed By: #### 4 1000, 29148, 55849 ####[facility] [facility].[address] CO2 [Moles/Vol] 32 mmol/L High 21-31 [facility] Comment on above: Order Comment: No: D o not add to previous draw Performed By: #### 4 1000, 15741, 58570 ####[facility] [facility].[address] Creatinine [Mass/Vol] 1.31 mg/dL High 0.70-1.30 [facility] Comment on above: Order Comment: No: D o not add to previous draw Performed By: #### 4 1000, 24645, 87049 ####[facility] [facility].[address] eGFR- non- 53 ml/min/1.73sq m Abnormal >60 [facility] Comment on above: Order Comment: No: D o not add to previous draw Result Comment: Calc ulation may not be valid for patients over 70 years Performed By: #### 4 1000, 49853, 30628 ####[facility] [place] [address], [facility] GFR/1.73 sq M.predicted among blacks MDRD (S/P/Bld) [Vol rate/Area] mL/min/{1.73_m2} Normal >60 [facility] Comment on above: Order Comment: No: D o not add to previous draw Result Comment: Calc ulation may not be valid for patients over 70 years Performed By: #### 4 1000, 42467, 07159 ####[facility] [place] [address], [facility] Glucose [Mass/Vol] 105 mg/dL High 70-100 [facility] Comment on above: Order Comment: No: D o not add to previous draw Performed By: #### 4 1000, 50320, 10270 ####[facility] [place] [address], [facility] Potassium [Moles/Vol] 4.0 mmol/L Normal 3.5-5.1 [facility] Comment on above: Order Comment: No: D o not add to previous draw Performed By: #### 4 1000, 04066, 50873 ####[facility] [place] [address], [facility] Sodium [Moles/Vol] 133 mmol/L Low 136-145 [facility] Comment on above: Order Comment: No: D o not add to previous draw Performed By: #### 4 1000, 83297, 79693 ####[facility] [place] [address], [facility] Urea nitrogen [Mass/Vol] 24 mg/dL Normal 7-25 [facility] Comment on above: Order Comment: No: D o not add to previous draw Performed By: #### 4 1000, 47088, 89682 ####[facility] CBC COMPLETE BLOOD COUNTon 0 05-23-2021 Erythrocyte distribution width (RBC) [Ratio] 14.3 % Normal 11.5-15.0 [facility] Comment on above: Order Comment: No: D o not add to previous draw Performed By: #### 5 0608 ####[facility] Hematocrit (Bld) [Volume fraction] 29.4 % Low 39.0-50.0 [facility] Comment on above: Order Comment: No: D o not add to previous draw Performed By: #### 5 0608 ####[address] Hemoglobin (Bld) [Mass/Vol] 9.4 g/dL Low 13.0-17.0 [facility] Comment on above: Order Comment: No: D o not add to previous draw Performed By: #### 5 0608 ####[facility] MCH (RBC) [Entitic mass] 28.5 pg Normal 27.0-33.0 [facility] Comment on above: Order Comment: No: D o not add to previous draw Performed By: #### 5 0608 ####[address] MCHC (RBC) [Mass/Vol] 32.0 g/dL Normal 32.0-35.0 [facility] Comment on above: Order Comment: No: D o not add to previous draw Performed By: #### 5 0608 ####[facility] [place] [address] MCV (RBC) [Entitic vol] 89.1 fL Normal 82.0-98.0 [facility] Comment on above: Order Comment: No: D o not add to previous draw Performed By: #### 5 0608 ####[facility] [facility] [place] [address], [facility] Nucleated RBC/100 WBC (Bld) [Ratio] 0 % Normal 0-0 [facility] Comment on above: Order Comment: No: D o not add to previous draw Performed By: #### 5 0608 ####[facility] [facility] [place] [address], [facility] PLAT CNT 342 10*3/uL Normal 150-400 [facility] Comment on above: Order Comment: No: D o not add to previous draw Performed By: #### 5 0608 ####[facility] [facility] [place] [address], [facility] RBC (Bld) [#/Vol] 3.30 10*6/uL Low 4.20-5.70 [facility] Comment on above: Order Comment: No: D o not add to previous draw Performed By: #### 5 0608 ####[facility] [facility] [place] [address], [facility] WBC (Bld) [#/Vol] 7.22 10*3/uL Normal 4.00-10.60 [facility] Comment on above: Order Comment: No: D o not add to previous draw Performed By: #### 5 0608 ####[facility] [facility] [place] [address], [facility] MAGNESIUM BLOODon 05-23-2021 Magnesium [Mass/Vol] 1.9 mg/dL Normal 1.9-2.7 [facility] Comment on above: Order Comment: No: D o not add to previous draw Performed By: #### 4 1000, 67367, 61764 ####[facility] [facility] [place] [address], [facility] PHOSPHORUS BLOODon Phosphate [Mass/Vol] 3.4 mg/dL Normal 2.5-5.0 [facility] Comment on above: Order Comment: No: D o not add to previous draw Performed By: #### 4 1000, 61476, 23204 ####[facility] [place] [address], [facility] POC GLUCOSE LABon 05-23-2021 Glucose [Mass/Vol] 141 mg/dL High 70-100 [facility] Comment on above: Performed By: #### 8 5499 ####[facility] [facility] [place] [address], [place] Glucose [Mass/Vol] 147 mg/dL High 70-100 [facility] Comment on above: Performed By: #### 8 5499 ####[facility] [facility] [place] [address], [place] Glucose [Mass/Vol] 138 mg/dL High 70-100 [facility] Comment on above: Performed By: #### 8 5499 ####[facility] [facility] [place] [address], [place] Glucose [Mass/Vol] 112 mg/dL High 70-100 [facility] Comment on above: Performed By: #### 8 5499 ####[facility] [facility] [place] [address], [place] Glucose [Mass/Vol] 121 mg/dL High 70-100 [facility] Comment on above: Performed By: #### 8 5499 ####[facility] [facility].[place] [id number], [facility] POC SARS COV2 ANTIGEN NEGATI VEon 05-23-2021 POC SARS COV2 ANTIGEN NEG Negative Normal NEGATIVE [facility] Comment on above: Result Comment: [...] of clinicalsigns and symptoms consistent with COVID-19.The [employer] COVID-19 Ag Card is a lateral flow immunoassay intended forthe qualitative detection of nucleocapsid protein antigen [id number] in direct nasal swabs from individuals within [...] Certificate ofAccreditation. Performed By: #### 3 1977 ####[facility] [facility].[address] PORTABLE CHEST 1 VIEWon 04-26 PORTABLE CHEST 1 VIEW Normal [facility] Comment on above: Order Comment: evalu ate for Atelectasis VANCOMYCIN RANDOMon 05-23-20 21 VANCOMYCIN RAND 19.6 mcg/mL Normal [facility] Comment on above: Order Comment: No: D o not add to previous draw Performed By: #### 9 4980 ####[facility] [facility] [place] [address], [facility] BASIC METABOLIC PANELon 04-25 Calcium [Mass/Vol] 8.6 mg/dL Normal 8.6-10.3 [facility] Comment on above: Order Comment: No: D o not add to previous draw Performed By: #### 0 0071, 76693, 76839 ####[facility] [facility] [place] [address], [facility] Chloride [Moles/Vol] 98 mmol/L Normal 98-107 [facility] Comment on above: Order Comment: No: D o not add to previous draw Performed By: #### 0 0071, 02199, 74979 ####[facility] [facility] [place] [address], [facility] CO2 [Moles/Vol] 33 mmol/L High 21-31 [facility] Comment on above: Order Comment: No: D o not add to previous draw Performed By: #### 0 0071, 56786, 21796 ####[facility] [place] [address], [facility] Creatinine [Mass/Vol] 1.21 mg/dL Normal 0.70-1.30 [facility] Comment on above: Order Comment: No: D o not add to previous draw Performed By: #### 0 0071, 30151, 04598 ####[facility] [place] [address], [facility] eGFR- non- 58 ml/min/1.73sq m Abnormal >60 [facility] Comment on above: Order Comment: No: D o not add to previous draw Result Comment: Calc ulation may not be valid for patients over 70 years Performed By: #### 0 0071, , 78419 ####[facility] [place] [address], [facility] GFR/1.73 sq M.predicted among blacks MDRD (S/P/Bld) [Vol rate/Area] mL/min/{1.73_m2} Normal >60 [facility] Comment on above: Order Comment: No: D o not add to previous draw Result Comment: Calc ulation may not be valid for patients over 70 years Performed By: #### 0 0071, 45495, 18022 ####[facility] [place] [address], [place] Glucose [Mass/Vol] 115 mg/dL High 70-100 [facility] Comment on above: Order Comment: No: D o not add to previous draw Performed By: #### 0 0071, 29893, 04777 ####[facility] [place] [address], [place] Potassium [Moles/Vol] 3.9 mmol/L Normal 3.5-5.1 [facility] Comment on above: Order Comment: No: D o not add to previous draw Performed By: #### 0 0071, 56034, 17000 ####[facility] [place] [address], [facility] Sodium [Moles/Vol] 135 mmol/L Low 136-145 [facility] Comment on above: Order Comment: No: D o not add to previous draw Performed By: #### 0 0071, 56066, 22447 ####[facility] [place] [address], [facility] Urea nitrogen [Mass/Vol] 22 mg/dL Normal 7-25 [facility] Comment on above: Order Comment: No: D o not add to previous draw Performed By: #### 0 0071, 05900, 50234 ####[facility] [facility].[address] CBC COMPLETE BLOOD COUNTon 0 05-22-2021 Erythrocyte distribution width (RBC) [Ratio] 14.3 % Normal 11.5-15.0 [facility] Comment on above: Order Comment: No: D o not add to previous draw Performed By: #### 5 0608 ####[facility] [place] [address], [facility] Hematocrit (Bld) [Volume fraction] 24.7 % Low 39.0-50.0 [facility] Comment on above: Order Comment: No: D o not add to previous draw Performed By: #### 5 0608 ####[facility] [place] [address], [facility] Hemoglobin (Bld) [Mass/Vol] 7.6 g/dL Low 13.0-17.0 [facility] Comment on above: Order Comment: No: D o not add to previous draw Performed By: #### 5 0608 ####[facility] [place] [address], [facility] MCH (RBC) [Entitic mass] 28.3 pg Normal 27.0-33.0 [facility] Comment on above: Order Comment: No: D o not add to previous draw Performed By: #### 5 0608 ####[facility] MCHC (RBC) [Mass/Vol] 30.8 g/dL Low 32.0-35.0 [facility] Comment on above: Order Comment: No: D o not add to previous draw Performed By: #### 5 0608 ####[facility] [facility].[address] MCV (RBC) [Entitic vol] 91.8 fL Normal 82.0-98.0 [facility] Comment on above: Order Comment: No: D o not add to previous draw Performed By: #### 5 0608 ####[facility] [facility].[address] Nucleated RBC/100 WBC (Bld) [Ratio] 0 % Normal 0-0 [facility] Comment on above: Order Comment: No: D o not add to previous draw Performed By: #### 5 0608 ####[facility] [facility].[address] PLAT CNT 313 10*3/uL Normal 150-400 [facility] Comment on above: Order Comment: No: D o not add to previous draw Performed By: #### 5 0608 ####[facility] [facility].[address] RBC (Bld) [#/Vol] 2.69 10*6/uL Low 4.20-5.70 [facility] Comment on above: Order Comment: No: D o not add to previous draw Performed By: #### 5 0608 ####[facility] [facility] [place] [address], [facility] WBC (Bld) [#/Vol] 7.75 10*3/uL Normal 4.00-10.60 [facility] Comment on above: Order Comment: No: D o not add to previous draw Performed By: #### 5 0608 ####[facility] [place] [address], [facility] MAGNESIUM BLOODon 05-22-2021 Magnesium [Mass/Vol] 1.9 mg/dL Normal 1.9-2.7 [facility] Comment on above: Order Comment: No: D o not add to previous draw Performed By: #### 0 0071, 49882, 99453 ####[facility] [facility] [place] [address], [facility] Operative Reporton Operative Report Normal [facility] POC GLUCOSE LABon 05-22-2021 Glucose [Mass/Vol] 126 mg/dL High 70-100 [facility] Comment on above: Performed By: #### 8 5499 ####[facility] [place] [address], [facility] Glucose [Mass/Vol] 136 mg/dL High 70-100 [facility] Comment on above: Performed By: #### 8 5499 ####[facility] [facility] [place] [address], [facility] Glucose [Mass/Vol] 156 mg/dL High 70-100 [facility] Comment on above: Performed By: #### 8 5499 ####[facility] [place] [address], [facility] PORTABLE CHEST 1 VIEWon 04-25 PORTABLE CHEST 1 VIEW Normal [facility] Comment on above: Order Comment: Evalu ate for Atelectasis, common RBC'S 1 UNITon 05-22-2021 CROSSMATCH INTERP 1 COMP Normal [facility] Comment on above: Performed By: #### 8 6001 ####[facility] PRODUCT CODE 1 E0336 Normal [facility] Comment on above: Performed By: #### 8 6001 ####[facility] [facility].[address] PRODUCT STATUS 1 PT Normal [facility] Comment on above: Result Comment: Resu lt changed by IF on 05/22/2021 13:33. The previous value was XM.Result changed by IF on 05/23/2021 00:30. The previous value was IS. Performed By: #### 8 6001 ####[facility] [facility].[address] UNIT ABO 1 O Normal [facility] Comment on above: Performed By: #### 8 6001 ####[facility] [facility].[address] UNIT ID 1 [id number] Normal [facility] Comment on above: Performed By: #### 8 6001 ####[facility] [facility].[address] UNIT RH 1 Positive Normal [facility] Comment on above: Performed By: #### 8 6001 ####[facility] [facility] [place] [address], [facility] RBC'S 3 UNITSon 05-22-2021 CROSSMATCH INTERP 1 COMP Normal [facility] Comment on above: Order Comment: Hemog lobin < 9 gm/dl with known cardiac or cerebrovascular disease Performed By: #### 8 6003 ####[facility] [facility].[address] CROSSMATCH INTERP 2 COMP Normal [facility] Comment on above: Order Comment: Hemog lobin < 9 gm/dl with known cardiac or cerebrovascular disease Performed By: #### 8 6003 ####[facility] CROSSMATCH INTERP 3 COMP Normal [facility] Comment on above: Order Comment: Hemog lobin < 9 gm/dl with known cardiac or cerebrovascular disease Performed By: #### 8 6003 ####[facility] PRODUCT CODE 1 E0336 Normal [facility] Comment on above: Order Comment: Hemog lobin < 9 gm/dl with known cardiac or cerebrovascular disease Performed By: #### 8 6003 ####[facility] PRODUCT CODE 2 E0685 Normal [facility] Comment on above: Order Comment: Hemog lobin < 9 gm/dl with known cardiac or cerebrovascular disease Performed By: #### 8 6003 ####[facility] PRODUCT CODE 3 E0336 Normal [facility] Comment on above: Order Comment: Hemog lobin < 9 gm/dl with known cardiac or cerebrovascular disease Performed By: #### 8 6003 ####[facility] PRODUCT STATUS 1 PT Normal [facility] Comment on above: Order Comment: Hemog lobin < 9 gm/dl with known cardiac or cerebrovascular disease Result Comment: Resu lt changed by IF on 05/22/2021 17:51. The previous value was XM.Result changed by IF on 05/23/2021 00:30. The previous value was IS. Performed By: #### 8 6003 ####[facility] PRODUCT STATUS 2 RE Normal [facility] Comment on above: Order Comment: Hemog lobin < 9 gm/dl with known cardiac or cerebrovascular disease Result Comment: Resu lt changed by IF on 05/24/2021 07:35. The previous value was XM. Performed By: #### 8 6003 ####[facility], [place] [address], [facility] PRODUCT STATUS 3 RE Normal [facility] Comment on above: Order Comment: Hemog lobin < 9 gm/dl with known cardiac or cerebrovascular disease Result Comment: Resu lt changed by IF on 05/24/2021 07:35. The previous value was XM. Performed By: #### 8 6003 ####[facility] [place] [address], [facility] UNIT ABO 1 O Normal [facility] Comment on above: Order Comment: Hemog lobin < 9 gm/dl with known cardiac or cerebrovascular disease Performed By: #### 8 6003 ####[facility] [place] [address], [facility] UNIT ABO 2 O Normal [facility] Comment on above: Order Comment: Hemog lobin < 9 gm/dl with known cardiac or cerebrovascular disease Performed By: #### 8 6003 ####[facility] [place] [address], [facility] UNIT ABO 3 O Normal [facility] Comment on above: Order Comment: Hemog lobin < 9 gm/dl with known cardiac or cerebrovascular disease Performed By: #### 8 6003 ####[facility] [place] [address], [facility] UNIT ID 1 [id number] Normal [facility] Comment on above: Order Comment: Hemog lobin < 9 gm/dl with known cardiac or cerebrovascular disease Performed By: #### 8 6003 ####[facility] [place] [address], [facility] UNIT ID 2 [id number] Normal [facility] Comment on above: Order Comment: Hemog lobin < 9 gm/dl with known cardiac or cerebrovascular disease Performed By: #### 8 6003 ####[facility] UNIT ID 3 [id number] Normal [facility] Comment on above: Order Comment: Hemog lobin < 9 gm/dl with known cardiac or cerebrovascular disease Performed By: #### 8 6003 ####[facility] UNIT RH 1 Negative Normal [facility] Comment on above: Order Comment: Hemog lobin < 9 gm/dl with known cardiac or cerebrovascular disease Performed By: #### 8 6003 ####[facility] UNIT RH 2 Positive Normal [facility] Comment on above: Order Comment: Hemog lobin < 9 gm/dl with known cardiac or cerebrovascular disease Performed By: #### 8 6003 ####[facility] UNIT RH 3 Positive Normal [facility] Comment on above: Order Comment: Hemog lobin < 9 gm/dl with known cardiac or cerebrovascular disease Performed By: #### 8 6003 ####[facility] VANCOMYCIN TIMEDon VANCOMYCIN TIMED 19.6 mcg/mL Normal [facility] Comment on above: Performed By: #### 0 0071, 64629, 83547 ####[facility] [facility].[address] BASIC METABOLIC PANELon 04-25 Calcium [Mass/Vol] 8.5 mg/dL Low 8.6-10.3 [facility] Comment on above: Order Comment: No: D o not add to previous draw Performed By: #### 1 0070, 42838, 35945 ####[facility] Chloride [Moles/Vol] 96 mmol/L Low 98-107 [facility] Comment on above: Order Comment: No: D o not add to previous draw Performed By: #### 1 0070, 13072, 22410 ####[facility] [place] [address], [facility] CO2 [Moles/Vol] 37 mmol/L High 21-31 [facility] Comment on above: Order Comment: No: D o not add to previous draw Performed By: #### 1 0070, 71536, 84586 ####[facility] [place] [address], [facility] Creatinine [Mass/Vol] 0.92 mg/dL Normal 0.70-1.30 [facility] Comment on above: Order Comment: No: D o not add to previous draw Performed By: #### 1 0070, 90458, 49364 ####[facility] [place] [address], [facility] GFR/1.73 sq M.predicted among blacks MDRD (S/P/Bld) [Vol rate/Area] mL/min/{1.73_m2} Normal >60 [facility] Comment on above: Order Comment: No: D o not add to previous draw Result Comment: Calc ulation may not be valid for patients over 70 years Performed By: #### 1 0070, 86288, 17004 ####[facility] [place] [address], [facility] GFR/1.73 sq M.predicted among non-blacks MDRD (S/P/Bld) [Vol rate/Area] mL/min/{1.73_m2} Normal >60 [facility] Comment on above: Order Comment: No: D o not add to previous draw Result Comment: Calc ulation may not be valid for patients over 70 years Performed By: #### 1 0070, 92346, 50676 ####[facility] [place] [address], [place] Glucose [Mass/Vol] 117 mg/dL High 70-100 [facility] Comment on above: Order Comment: No: D o not add to previous draw Performed By: #### 1 0070, 73928, 92449 ####[facility] [place] [address], [facility] Potassium [Moles/Vol] 3.9 mmol/L Normal 3.5-5.1 [facility] Comment on above: Order Comment: No: D o not add to previous draw Performed By: #### 1 0, 86171, 60630 ####[facility] [place] [address], [facility] Sodium [Moles/Vol] 134 mmol/L Low 136-145 [facility] Comment on above: Order Comment: No: D o not add to previous draw Performed By: #### 1 0, 45634, 86386 ####[facility] [place] [address], [facility] Urea nitrogen [Mass/Vol] 17 mg/dL Normal 7-25 [facility] Comment on above: Order Comment: No: D o not add to previous draw Performed By: #### 1 0, 37967, 67276 ####[facility] [place] [address], [facility] CBC COMPLETE BLOOD COUNTon 0 05-21-2021 Erythrocyte distribution width (RBC) [Ratio] 14.3 % Normal 11.5-15.0 [facility] Comment on above: Order Comment: No: D o not add to previous draw Performed By: #### 5 0608 ####[facility] [place] [address], [facility] Hematocrit (Bld) [Volume fraction] 27.2 % Low 39.0-50.0 [facility] Comment on above: Order Comment: No: D o not add to previous draw Performed By: #### 5 0608 ####[facility], [place] [address] Hemoglobin (Bld) [Mass/Vol] 8.1 g/dL Low 13.0-17.0 [facility] Comment on above: Order Comment: No: D o not add to previous draw Performed By: #### 5 0608 ####[facility] [facility].[address] MCH (RBC) [Entitic mass] 27.6 pg Normal 27.0-33.0 [facility] Comment on above: Order Comment: No: D o not add to previous draw Performed By: #### 5 0608 ####[facility] [facility].[address] MCHC (RBC) [Mass/Vol] 29.8 g/dL Low 32.0-35.0 [facility] Comment on above: Order Comment: No: D o not add to previous draw Performed By: #### 5 0608 ####[facility] [facility].[address] MCV (RBC) [Entitic vol] 92.8 fL Normal 82.0-98.0 [facility] Comment on above: Order Comment: No: D o not add to previous draw Performed By: #### 5 0608 ####[facility]3000 [facility].[address] Nucleated RBC/100 WBC (Bld) [Ratio] 0 % Normal 0-0 [facility] Comment on above: Order Comment: No: D o not add to previous draw Performed By: #### 5 0608 ####[facility] PLAT CNT 329 10*3/uL Normal 150-400 [facility] Comment on above: Order Comment: No: D o not add to previous draw Performed By: #### 5 0608 ####[facility] [place] [address] RBC (Bld) [#/Vol] 2.93 10*6/uL Low 4.20-5.70 [facility] Comment on above: Order Comment: No: D o not add to previous draw Performed By: #### 5 0608 ####[facility] WBC (Bld) [#/Vol] 6.21 10*3/uL Normal 4.00-10.60 [facility] Comment on above: Order Comment: No: D o not add to previous draw Performed By: #### 5 0608 ####[facility] [facility].[address] MAGNESIUM BLOODon 05-21-2021 Magnesium [Mass/Vol] 2.0 mg/dL Normal 1.9-2.7 [facility] Comment on above: Order Comment: No: D o not add to previous draw Performed By: #### 1 0070, 69388, 88061 ####[facility] [facility].[address] Operative Reporton 1 Operative Report Normal [facility] PHOSPHORUS BLOODon 1 Phosphate [Mass/Vol] 4.0 mg/dL Normal 2.5-5.0 [facility] Comment on above: Order Comment: No: D o not add to previous draw Performed By: #### 1 0070, 98977, 94721 ####[facility] POC GLUCOSE LABon 05-21-2021 Glucose [Mass/Vol] 143 mg/dL High 70-100 [facility] Comment on above: Performed By: #### 8 5499 ####[facility] [facility].[address] Glucose [Mass/Vol] 123 mg/dL High 70-100 [facility] Comment on above: Performed By: #### 8 5499 ####[facility] [facility] [place] [address], [facility] Glucose [Mass/Vol] 128 mg/dL High 70-100 [facility] Comment on above: Performed By: #### 8 5499 ####[facility] [facility] [place] [address], [facility] Glucose [Mass/Vol] 158 mg/dL High 70-100 [facility] Comment on above: Performed By: #### 8 5499 ####[facility] [facility] [place] [address], [facility] PORTABLE CHEST 1 VIEWon 04-25 PORTABLE CHEST 1 VIEW Normal [facility] Comment on above: Order Comment: evalu ate for Atelectasis PROTHROMBIN TIMEon INR Coag (PPP) [Relative time] 1.12 {INR} Normal 0.91-1.16 [facility] Comment on above: [...] OF ACTION, CLINICALEFFECTIVENESS, AND OPTIMAL THERAPEUTIC RANGE. [id number];108:[id number]. Performed By: #### 5 6101 ####[facility] [facility] [place] [address], [facility] PT Coag (PPP) [Time] 14.4 s Normal 12.3-14.8 [facility] Comment on above: Order Comment: No: D o not add to previous draw Result Comment: ALL RESULTS MUST BE INTERPRETED WITH RESPECT TO BLOOD DRAWING ARTIFACTOR DILUTION ERROR OF ANTICOAGULANT AT THE TIME OF SAMPLING. Performed By: #### 5 6101 ####[facility] [facility] [place] [address], [facility] BASIC METABOLIC PANELon - Calcium [Mass/Vol] 8.8 mg/dL Normal 8.6-10.3 [facility] Comment on above: Order Comment: No: D o not add to previous draw Performed By: #### 1 0070, 02902, 91404 ####[place] [id number] [facility] [place] [address], [facility] Chloride [Moles/Vol] 96 mmol/L Low 98-107 [facility] Comment on above: Order Comment: No: D o not add to previous draw Performed By: #### 1 0, 22240, 14423 ####[facility] [facility] [place] [address], [facility] CO2 [Moles/Vol] 33 mmol/L High 21-31 [facility] Comment on above: Order Comment: No: D o not add to previous draw Performed By: #### 1 0, 43434, 09179 ####[facility] [facility] [place] [address], [facility] Creatinine [Mass/Vol] 0.90 mg/dL Normal 0.70-1.30 [facility] Comment on above: Order Comment: No: D o not add to previous draw Performed By: #### 1 0, 94367, 94751 ####[facility] [facility] [place] [address], [facility] GFR/1.73 sq M.predicted among blacks MDRD (S/P/Bld) [Vol rate/Area] mL/min/{1.73_m2} Normal >60 [facility] Comment on above: Order Comment: No: D o not add to previous draw Result Comment: Calc ulation may not be valid for patients over 70 years Performed By: #### 1 0070, 83275, 44933 ####[facility] [place] [address], [facility] GFR/1.73 sq M.predicted among non-blacks MDRD (S/P/Bld) [Vol rate/Area] mL/min/{1.73_m2} Normal >60 [facility] Comment on above: Order Comment: No: D o not add to previous draw Result Comment: Calc ulation may not be valid for patients over 70 years Performed By: #### 1 0070, 45162, 49214 ####[facility] [place] [address], [place] Glucose [Mass/Vol] 113 mg/dL High 70-100 [facility] Comment on above: Order Comment: No: D o not add to previous draw Performed By: #### 1 0, 04712, 38980 ####[facility] [place] [address], [place] Potassium [Moles/Vol] 3.6 mmol/L Normal 3.5-5.1 [facility] Comment on above: Order Comment: No: D o not add to previous draw Performed By: #### 1 0, 22830, 31351 ####[facility] [place] [address], [place] Sodium [Moles/Vol] 135 mmol/L Low 136-145 [facility] Comment on above: Order Comment: No: D o not add to previous draw Performed By: #### 1 0070, 09274, 95880 ####[facility] [place] [address], [place] Urea nitrogen [Mass/Vol] 15 mg/dL Normal 7-25 [facility] Comment on above: Order Comment: No: D o not add to previous draw Performed By: #### 1 0070, 31468, 86850 ####[facility] [facility].[address] CBC COMPLETE BLOOD COUNTon 0 05-20-2021 Erythrocyte distribution width (RBC) [Ratio] 14.1 % Normal 11.5-15.0 [facility] Comment on above: Order Comment: No: D o not add to previous draw Performed By: #### 5 0608 ####[facility] [facility].[address] Hematocrit (Bld) [Volume fraction] 28.9 % Low 39.0-50.0 [facility] Comment on above: Order Comment: No: D o not add to previous draw Performed By: #### 5 0608 ####[facility] [facility].[address] Hemoglobin (Bld) [Mass/Vol] 8.9 g/dL Low 13.0-17.0 [facility] Comment on above: Order Comment: No: D o not add to previous draw Performed By: #### 5 0608 ####[facility] [facility].[address] MCH (RBC) [Entitic mass] 28.3 pg Normal 27.0-33.0 [facility] Comment on above: Order Comment: No: D o not add to previous draw Performed By: #### 5 0608 ####[facility] [facility] [place] [address], [facility] MCHC (RBC) [Mass/Vol] 30.8 g/dL Low 32.0-35.0 [facility] Comment on above: Order Comment: No: D o not add to previous draw Performed By: #### 5 0608 ####[facility] [facility] [place] [address], [facility] MCV (RBC) [Entitic vol] 92.0 fL Normal 82.0-98.0 [facility] Comment on above: Order Comment: No: D o not add to previous draw Performed By: #### 5 0608 ####[facility] [facility].[address] Nucleated RBC/100 WBC (Bld) [Ratio] 0 % Normal 0-0 [facility] Comment on above: Order Comment: No: D o not add to previous draw Performed By: #### 5 0608 ####[facility] [facility] [place] [address], [facility] PLAT CNT 339 10*3/uL Normal 150-400 [facility] Comment on above: Order Comment: No: D o not add to previous draw Performed By: #### 5 0608 ####[facility] [facility] [place] [address], [facility] RBC (Bld) [#/Vol] 3.14 10*6/uL Low 4.20-5.70 [facility] Comment on above: Order Comment: No: D o not add to previous draw Performed By: #### 5 0608 ####[facility] [facility] [place] [address], [facility] WBC (Bld) [#/Vol] 6.69 10*3/uL Normal 4.00-10.60 [facility] Comment on above: Order Comment: No: D o not add to previous draw Performed By: #### 5 0608 ####[facility]3000 [facility].[address] Erythrocyte distribution width (RBC) [Ratio] 14.1 % Normal 11.5-15.0 [facility] Comment on above: Order Comment: No: D o not add to previous draw Performed By: #### 5 0608 ####[facility] [facility] [place] [address], [facility] Hematocrit (Bld) [Volume fraction] 29.5 % Low 39.0-50.0 [facility] Comment on above: Order Comment: No: D o not add to previous draw Performed By: #### 5 0608 ####[facility]3000 [facility].[address] Hemoglobin (Bld) [Mass/Vol] 9.3 g/dL Low 13.0-17.0 [facility] Comment on above: Order Comment: No: D o not add to previous draw Performed By: #### 5 0608 ####[facility]3000 [facility].[address] MCH (RBC) [Entitic mass] 28.2 pg Normal 27.0-33.0 [facility] Comment on above: Order Comment: No: D o not add to previous draw Performed By: #### 5 0608 ####[facility]3000 [facility].[address] MCHC (RBC) [Mass/Vol] 31.5 g/dL Low 32.0-35.0 [facility] Comment on above: Order Comment: No: D o not add to previous draw Performed By: #### 5 0608 ####[facility]3000 [facility].[address] MCV (RBC) [Entitic vol] 89.4 fL Normal 82.0-98.0 [facility] Comment on above: Order Comment: No: D o not add to previous draw Performed By: #### 5 0608 ####[facility]3000 [facility].[address] Nucleated RBC/100 WBC (Bld) [Ratio] 0 % Normal 0-0 [facility] Comment on above: Order Comment: No: D o not add to previous draw Performed By: #### 5 0608 ####[facility] [place] [address], [facility] PLAT CNT 338 10*3/uL Normal 150-400 [facility] Comment on above: Order Comment: No: D o not add to previous draw Performed By: #### 5 0608 ####[facility] RBC (Bld) [#/Vol] 3.30 10*6/uL Low 4.20-5.70 [facility] Comment on above: Order Comment: No: D o not add to previous draw Performed By: #### 5 0608 ####[facility] [facility] [place] [address], [facility] WBC (Bld) [#/Vol] 6.66 10*3/uL Normal 4.00-10.60 [facility] Comment on above: Order Comment: No: D o not add to previous draw Performed By: #### 5 0608 ####[facility]3000 [facility].[address] MAGNESIUM BLOODon 05-20-2021 Magnesium [Mass/Vol] 1.9 mg/dL Normal 1.9-2.7 [facility] Comment on above: Order Comment: No: D o not add to previous draw Performed By: #### 1 0070, 25805, 22659 ####[facility] [facility].[address] PHOSPHORUS BLOODon Phosphate [Mass/Vol] 3.7 mg/dL Normal 2.5-5.0 [facility] Comment on above: Order Comment: No: D o not add to previous draw Performed By: #### 1 0070, 71494, 44774 ####[facility]3000 [facility].[address] POC GLUCOSE LABon 05-20-2021 Glucose [Mass/Vol] 130 mg/dL High 70-100 [facility] Comment on above: Performed By: #### 8 5499 ####[facility] [facility] [place] [address], [facility] Glucose [Mass/Vol] 119 mg/dL High 70-100 [facility] Comment on above: Performed By: #### 8 5499 ####[facility] [facility] [place] [address], [facility] Glucose [Mass/Vol] 118 mg/dL High 70-100 [facility] Comment on above: Performed By: #### 8 5499 ####[facility] [facility] [place] [address], [place] Glucose [Mass/Vol] 118 mg/dL High 70-100 [facility] Comment on above: Performed By: #### 8 5499 ####[facility] [facility] [place] [address], [place] Glucose [Mass/Vol] 119 mg/dL High 70-100 [facility] Comment on above: Performed By: #### 8 5499 ####[facility] [facility], [place] [address] [place] [address] PROTHROMBIN TIMEon 1 INR Coag (PPP) [Relative time] 1.09 {INR} Normal 0.91-1.16 [facility] Comment on above: Order Comment: [...] OF ACTION, CLINICALEFFECTIVENESS, AND OPTIMAL THERAPEUTIC RANGE. [id number];[id number]. Performed By: #### 5 6101 ####[facility] PT Coag (PPP) [Time] 14.1 s Normal 12.3-14.8 [facility] Comment on above: Order Comment: No: D o not add to previous draw Result Comment: ALL RESULTS MUST BE INTERPRETED WITH RESPECT TO BLOOD DRAWING ARTIFACTOR DILUTION ERROR OF ANTICOAGULANT AT THE TIME OF SAMPLING. Performed By: #### 5 6101 ####[facility]3000 [facility].[address] TYPE AND SCREENon 05-20-2021 ABO INTERPRETATION O Normal [facility] Comment on above: Performed By: #### 6 2586 ####[facility] [facility].[address] RH INTERPRETATION Positive Normal [facility] Comment on above: Performed By: #### 6 2586 ####[facility] [facility].[address] *MRSA/MSSA DNA NASALon 05-19 *MRSA/MSSA DNA NASAL Clinical Report: (D ) Specimen: NASAL SWAB Collected: 05/19/2021 10:27 Status: Final Last Updated: 05/19/2021 15:02 MSSA DNA (Final) Negative MRSA DNA (Final) Negative Normal [facility] Comment on above: Performed By: #### 3 1595 ####[facility] [facility].[address] CBC W/DIFFon 05-19-2021 ABS IMM GRANS 0.0 10*3/uL Normal 0.0-0.2 [facility] Comment on above: Order Comment: No: D o not add to previous draw Performed By: #### 5 0103 ####[facility] [facility] [place] [address], [facility] ABS NEUTROPHILS 4.3 10*3/uL Normal 1.6-7.6 The [facility] Comment on above: Order Comment: No: D o not add to previous draw Performed By: #### 5 0103 ####[facility] [place] [address], [facility] Basophils (Bld) [#/Vol] 0.0 10*3/uL Normal 0.0-0.2 [facility] Comment on above: Order Comment: No: D o not add to previous draw Performed By: #### 5 0103 ####[facility] [place] [place] [address], [facility] Basophils/100 WBC (Bld) 0.5 % Normal 0.0-1.0 [facility] Comment on above: Order Comment: No: D o not add to previous draw Performed By: #### 5 0103 ####[facility] [place] [address], [facility] Eosinophils (Bld) [#/Vol] 0.2 10*3/uL Normal 0.0-0.5 [facility] Comment on above: Order Comment: No: D o not add to previous draw Performed By: #### 5 0103 ####[facility] [facility] [place] [address], [facility] Eosinophils/100 WBC (Bld) 3.1 % Normal 0.0-6.0 [facility] Comment on above: Order Comment: No: D o not add to previous draw Performed By: #### 5 0103 ####[facility] [place] [address], [facility] Erythrocyte distribution width (RBC) [Ratio] 14.2 % Normal 11.5-15.0 [facility] Comment on above: Order Comment: No: D o not add to previous draw Performed By: #### 5 0103 ####[facility] Hematocrit (Bld) [Volume fraction] 29.0 % Low 39.0-50.0 [facility] Comment on above: Order Comment: No: D o not add to previous draw Performed By: #### 5 0103 ####[facility] Hemoglobin (Bld) [Mass/Vol] 9.2 g/dL Low 13.0-17.0 [facility] Comment on above: Order Comment: No: D o not add to previous draw Performed By: #### 5 0103 ####[facility] IMMATURE GRANS 0.5 % Normal 0.0-1.0 [facility] Comment on above: Order Comment: No: D o not add to previous draw Performed By: #### 5 0103 ####[facility] Lymphocytes (Bld) [#/Vol] 1.0 10*3/uL Low 1.2-4.0 [facility] Comment on above: Order Comment: No: D o not add to previous draw Performed By: #### 5 0103 ####[facility] Lymphocytes/100 WBC (Bld) 15.9 % Low 20.0-45.0 [facility] Comment on above: Order Comment: No: D o not add to previous draw Performed By: #### 5 0103 ####[facility] MCH (RBC) [Entitic mass] 28.5 pg Normal 27.0-33.0 [facility] Comment on above: Order Comment: No: D o not add to previous draw Performed By: #### 5 0103 ####[facility] MCHC (RBC) [Mass/Vol] 31.7 g/dL Low 32.0-35.0 [facility] Comment on above: Order Comment: No: D o not add to previous draw Performed By: #### 5 0103 ####[facility] MCV (RBC) [Entitic vol] 89.8 fL Normal 82.0-98.0 [facility] Comment on above: Order Comment: No: D o not add to previous draw Performed By: #### 5 0103 ####[facility] Monocytes (Bld) [#/Vol] 0.6 10*3/uL Normal 0.1-1.0 [facility] Comment on above: Order Comment: No: D o not add to previous draw Performed By: #### 5 0103 ####[facility] MONOS 10.2 % Normal 5.0-12.0 [facility] Comment on above: Order Comment: No: D o not add to previous draw Performed By: #### 5 0103 ####[facility] Neutrophils/100 WBC (Bld) 69.8 % Normal 40.0-72.0 [facility] Comment on above: Order Comment: No: D o not add to previous draw Performed By: #### 5 0103 ####[facility] Nucleated RBC/100 WBC (Bld) [Ratio] 0 % Normal 0-0 [facility] Comment on above: Order Comment: No: D o not add to previous draw Performed By: #### 5 0103 ####[facility] [place] [address], [facility] PLAT CNT 294 10*3/uL Normal 150-400 [facility] Comment on above: Order Comment: No: D o not add to previous draw Performed By: #### 5 0103 ####[facility] [place] [address], [facility] RBC (Bld) [#/Vol] 3.23 10*6/uL Low 4.20-5.70 [facility] Comment on above: Order Comment: No: D o not add to previous draw Performed By: #### 5 0103 ####[facility] [place] [address], [facility] WBC (Bld) [#/Vol] 6.09 10*3/uL Normal 4.00-10.60 [facility] Comment on above: Order Comment: No: D o not add to previous draw Performed By: #### 5 0103 ####[facility] COMP METABOLIC PANELon 05-19 Albumin [Mass/Vol] 2.8 g/dL Low 3.5-5.7 [facility] Comment on above: Order Comment: No: D o not add to previous draw Performed By: #### 4 1000, 35690, 97775 ####[facility] ALKALINE PHOSPH 59 IU/L Normal 34-104 [facility] Comment on above: Order Comment: No: D o not add to previous draw Performed By: #### 4 1000, 14604, 04438 ####[facility] ALT [Catalytic activity/Vol] 9 U/L Normal 7-52 [facility] Comment on above: Order Comment: No: D o not add to previous draw Performed By: #### 4 1000, 09519, 59396 ####[facility] [place] [address], [place] AST [Catalytic activity/Vol] 20 U/L Normal 13-39 [facility] Comment on above: Order Comment: No: D o not add to previous draw Performed By: #### 4 1000, 78049, 79691 ####[facility] [place] [address], [place] Bilirubin [Mass/Vol] 0.6 mg/dL Normal 0.3-1.0 [facility] Comment on above: Order Comment: No: D o not add to previous draw Performed By: #### 4 1000, 69809, 43638 ####[facility] [place] [address], [place] Calcium [Mass/Vol] 8.5 mg/dL Low 8.6-10.3 [facility] Comment on above: Order Comment: No: D o not add to previous draw Performed By: #### 4 1000, 76165, 27733 ####[facility] [place] [address], [place] Chloride [Moles/Vol] 98 mmol/L Normal 98-107 [facility] Comment on above: Order Comment: No: D o not add to previous draw Performed By: #### 4 1000, 71199, 92218 ####[facility] [place] [address], [place] CO2 [Moles/Vol] 31 mmol/L Normal 21-31 [facility] Comment on above: Order Comment: No: D o not add to previous draw Performed By: #### 4 1000, 44657, 26495 ####[facility] [place] [address], [place] Creatinine [Mass/Vol] 0.74 mg/dL Normal 0.70-1.30 [facility] Comment on above: Order Comment: No: D o not add to previous draw Performed By: #### 4 1000, 53476, 56296 ####[facility] [place] [address], [facility] GFR/1.73 sq M.predicted among blacks MDRD (S/P/Bld) [Vol rate/Area] mL/min/{1.73_m2} Normal >60 [facility] Comment on above: Order Comment: No: D o not add to previous draw Result Comment: Calc ulation may not be valid for patients over 70 years Performed By: #### 4 1000, 16533, 12561 ####[facility] [place] [address], [facility] GFR/1.73 sq M.predicted among non-blacks MDRD (S/P/Bld) [Vol rate/Area] mL/min/{1.73_m2} Normal >60 [facility] Comment on above: Order Comment: No: D o not add to previous draw Result Comment: Calc ulation may not be valid for patients over 70 years Performed By: #### 4 1000, 30322, 98096 ####[facility] [place] [address], [place] Glucose [Mass/Vol] 143 mg/dL High 70-100 [facility] Comment on above: Order Comment: No: D o not add to previous draw Performed By: #### 4 1000, 87375, 04985 ####[facility] [place] [address], [place] Potassium [Moles/Vol] 3.4 mmol/L Low 3.5-5.1 [facility] Comment on above: Order Comment: No: D o not add to previous draw Performed By: #### 4 1000, 49652, 80231 ####[facility] [place] [address], [place] Protein [Mass/Vol] 6.7 g/dL Normal 6.0-8.3 [facility] Comment on above: Order Comment: No: D o not add to previous draw Performed By: #### 4 1000, 97541, 90387 ####[facility] [place] [address], [facility] Sodium [Moles/Vol] 134 mmol/L Low 136-145 [facility] Comment on above: Order Comment: No: D o not add to previous draw Performed By: #### 4 1000, 91361, 21242 ####[facility] [place] [address], [facility] Urea nitrogen [Mass/Vol] 14 mg/dL Normal 7-25 [facility] Comment on above: Order Comment: No: D o not add to previous draw Performed By: #### 4 1000, 94928, 26215 ####[facility] [place] [address], [facility] MAGNESIUM BLOODon 05-19-2021 Magnesium [Mass/Vol] 1.9 mg/dL Normal 1.9-2.7 [facility] Comment on above: Order Comment: No: D o not add to previous draw Performed By: #### 4 1000, 94667, 39772 ####[facility] [place] [address], [facility] PHOSPHORUS BLOODon Phosphate [Mass/Vol] 3.1 mg/dL Normal 2.5-5.0 [facility] Comment on above: Order Comment: No: D o not add to previous draw Performed By: #### 4 1000, 71528, 45821 ####[facility] [place] [address], [place] POC GLUCOSE LABon 05-19-2021 Glucose [Mass/Vol] 124 mg/dL High 70-100 [facility] Comment on above: Performed By: #### 8 5499 ####[facility] [place] [address], [place] Glucose [Mass/Vol] 132 mg/dL High 70-100 [facility] Comment on above: Performed By: #### 8 5499 ####[facility] [facility] [place] [address], [facility] Glucose [Mass/Vol] 153 mg/dL High 70-100 [facility] Comment on above: Performed By: #### 8 5499 ####[facility] [place] [address], [facility] Glucose [Mass/Vol] 133 mg/dL High 70-100 [facility] Comment on above: Performed By: #### 8 5499 ####[facility] POC SARS COV2 ANTIGEN NEGATI VEon 05-19-2021 POC SARS COV2 ANTIGEN NEG Negative Normal NEGATIVE [facility] Comment on above: Result Comment: [...] of clinicalsigns and symptoms consistent with COVID-19.The Anate[employer]NOW COVID-19 Ag Card is a lateral flow immunoassay intended forthe qualitative detection of nucleocapsid protein antigen [id number] in direct nasal swabs from individuals within [...] Certificate ofAccreditation. Performed By: #### 3 1977 ####[facility] [place] [address], [facility] VANCOMYCIN TIMEDon VANCOMYCIN TIMED 16.3 mcg/mL Normal [facility] Comment on above: Performed By: #### 3 0953 ####[facility] CBC W/DIFFon 05-18-2021 ABS IMM GRANS 0.0 10*3/uL Normal 0.0-0.2 [facility] Comment on above: Order Comment: No: D o not add to previous draw Performed By: #### 5 0103 ####[facility] ABS NEUTROPHILS 5.1 10*3/uL Normal 1.6-7.6 [facility] Comment on above: Order Comment: No: D o not add to previous draw Performed By: #### 5 0103 ####[facility] Basophils (Bld) [#/Vol] 0.0 10*3/uL Normal 0.0-0.2 [facility] Comment on above: Order Comment: No: D o not add to previous draw Performed By: #### 5 0103 ####[facility] Basophils/100 WBC (Bld) 0.4 % Normal 0.0-1.0 [facility] Comment on above: Order Comment: No: D o not add to previous draw Performed By: #### 5 0103 ####[facility] Eosinophils (Bld) [#/Vol] 0.2 10*3/uL Normal 0.0-0.5 [facility] Comment on above: Order Comment: No: D o not add to previous draw Performed By: #### 5 0103 ####[facility] Eosinophils/100 WBC (Bld) 2.6 % Normal 0.0-6.0 [facility] Comment on above: Order Comment: No: D o not add to previous draw Performed By: #### 5 0103 ####[facility] [facility].[address] Erythrocyte distribution width (RBC) [Ratio] 14.1 % Normal 11.5-15.0 [facility] Comment on above: Order Comment: No: D o not add to previous draw Performed By: #### 5 0103 ####[facility] [facility].[address] Hematocrit (Bld) [Volume fraction] 27.5 % Low 39.0-50.0 [facility] Comment on above: Order Comment: No: D o not add to previous draw Performed By: #### 5 0103 ####[facility] [facility].[address] Hemoglobin (Bld) [Mass/Vol] 8.6 g/dL Low 13.0-17.0 [facility] Comment on above: Order Comment: No: D o not add to previous draw Performed By: #### 5 0103 ####[facility] IMMATURE GRANS 0.1 % Normal 0.0-1.0 [facility] Comment on above: Order Comment: No: D o not add to previous draw Performed By: #### 5 0103 ####[facility] [facility].[address] Lymphocytes (Bld) [#/Vol] 1.3 10*3/uL Normal 1.2-4.0 [facility] Comment on above: Order Comment: No: D o not add to previous draw Performed By: #### 5 3 ####[facility] [facility] [place] [address], [facility] Lymphocytes/100 WBC (Bld) 18.0 % Low 20.0-45.0 [facility] Comment on above: Order Comment: No: D o not add to previous draw Performed By: #### 5 0103 ####[facility] MCH (RBC) [Entitic mass] 28.7 pg Normal 27.0-33.0 [facility] Comment on above: Order Comment: No: D o not add to previous draw Performed By: #### 5 0103 ####[facility] MCHC (RBC) [Mass/Vol] 31.3 g/dL Low 32.0-35.0 [facility] Comment on above: Order Comment: No: D o not add to previous draw Performed By: #### 5 0103 ####[facility] [facility].[address] MCV (RBC) [Entitic vol] 91.7 fL Normal 82.0-98.0 [facility] Comment on above: Order Comment: No: D o not add to previous draw Performed By: #### 5 0103 ####[facility] Monocytes (Bld) [#/Vol] 0.7 10*3/uL Normal 0.1-1.0 [facility] Comment on above: Order Comment: No: D o not add to previous draw Performed By: #### 5 0103 ####[facility] MONOS 10.0 % Normal 5.0-12.0 [facility] Comment on above: Order Comment: No: D o not add to previous draw Performed By: #### 5 3 ####[facility] [facility].[address] Neutrophils/100 WBC (Bld) 68.9 % Normal 40.0-72.0 [facility] Comment on above: Order Comment: No: D o not add to previous draw Performed By: #### 5 0103 ####[facility] [place] [address], [facility] Nucleated RBC/100 WBC (Bld) [Ratio] 0 % Normal 0-0 [facility] Comment on above: Order Comment: No: D o not add to previous draw Performed By: #### 5 0103 ####[facility] [facility] [place] [address], [facility] PLAT CNT 288 10*3/uL Normal 150-400 [facility] Comment on above: Order Comment: No: D o not add to previous draw Performed By: #### 5 0103 ####[facility] [facility] [place] [address], [facility] RBC (Bld) [#/Vol] 3.00 10*6/uL Low 4.20-5.70 [facility] Comment on above: Order Comment: No: D o not add to previous draw Performed By: #### 5 0103 ####[facility] [place] [address], [facility] WBC (Bld) [#/Vol] 7.40 10*3/uL Normal 4.00-10.60 [facility] Comment on above: Order Comment: No: D o not add to previous draw Performed By: #### 5 0103 ####[facility] [facility] [place] [address], [facility] COMP METABOLIC PANELon 05-18 Albumin [Mass/Vol] 2.7 g/dL Low 3.5-5.7 [facility] Comment on above: Order Comment: No: D o not add to previous draw Performed By: #### 4 1000, 23457, 07928, 74711 ####[facility] [id number], [facility] ALKALINE PHOSPH 62 IU/L Normal 34-104 [facility] Comment on above: Order Comment: No: D o not add to previous draw Performed By: #### 4 1000, 64303, 11184, 59973 ####[facility] [place] [address], [place] ALT [Catalytic activity/Vol] 11 U/L Normal 7-52 [facility] Comment on above: Order Comment: No: D o not add to previous draw Performed By: #### 4 1000, 77789, 21277, 85967 ####[facility] [id number], [facility] AST [Catalytic activity/Vol] 31 U/L Normal 13-39 [facility] Comment on above: Order Comment: No: D o not add to previous draw Performed By: #### 4 1000, 05461, 89283, 70218 ####[facility] [place] [address], [facility] Bilirubin [Mass/Vol] 0.8 mg/dL Normal 0.3-1.0 [facility] Comment on above: Order Comment: No: D o not add to previous draw Performed By: #### 4 1000, 02520, 66227, 77160 ####[facility] [place] [address], [facility] Calcium [Mass/Vol] 8.0 mg/dL Low 8.6-10.3 [facility] Comment on above: Order Comment: No: D o not add to previous draw Performed By: #### 4 1000, 15553, 81649, 05791 ####[facility] [place] [address], [place] Chloride [Moles/Vol] 98 mmol/L Normal 98-107 [facility] Comment on above: Order Comment: No: D o not add to previous draw Performed By: #### 4 1000, 30341, 52998, 17520 ####[facility] [place] [address], [facility] CO2 [Moles/Vol] 33 mmol/L High 21-31 [facility] Comment on above: Order Comment: No: D o not add to previous draw Performed By: #### 4 1000, 07246, 22590, 66693 ####[facility] [place] [address], [facility] Creatinine [Mass/Vol] 0.89 mg/dL Normal 0.70-1.30 [facility] Comment on above: Order Comment: No: D o not add to previous draw Performed By: #### 4 1000, 31094, 63935, 42025 ####[facility] [place] [address], [facility] GFR/1.73 sq M.predicted among blacks MDRD (S/P/Bld) [Vol rate/Area] mL/min/{1.73_m2} Normal >60 [facility] Comment on above: Order Comment: No: D o not add to previous draw Result Comment: Calc ulation may not be valid for patients over 70 years Performed By: #### 4 1000, 41145, 12219, 67419 ####[facility] [place] [address], [facility] GFR/1.73 sq M.predicted among non-blacks MDRD (S/P/Bld) [Vol rate/Area] mL/min/{1.73_m2} Normal >60 [facility] Comment on above: Order Comment: No: D o not add to previous draw Result Comment: Calc ulation may not be valid for patients over 70 years Performed By: #### 4 1000, 38643, 70346, 85916 ####[facility] [place] [address], [place] Glucose [Mass/Vol] 108 mg/dL High 70-100 [facility] Comment on above: Order Comment: No: D o not add to previous draw Performed By: #### 4 1000, 84128, 31558, 98430 ####[facility] [place] [address], [facility] Potassium [Moles/Vol] 3.7 mmol/L Normal 3.5-5.1 [facility] Comment on above: Order Comment: No: D o not add to previous draw Performed By: #### 4 1000, 51754, 11189, 31835 ####[facility] [place] [address], [facility] Protein [Mass/Vol] 6.6 g/dL Normal 6.0-8.3 [facility] Comment on above: Order Comment: No: D o not add to previous draw Performed By: #### 4 1000, 15092, 17523, 28807 ####[facility] [place] [address], [facility] Sodium [Moles/Vol] 136 mmol/L Normal 136-145 [facility] Comment on above: Order Comment: No: D o not add to previous draw Performed By: #### 4 1000, 30132, 47066, 09640 ####[facility] [place] [address], [facility] Urea nitrogen [Mass/Vol] 16 mg/dL Normal 7-25 [facility] Comment on above: Order Comment: No: D o not add to previous draw Performed By: #### 4 1000, 15418, 00583, 53437 ####[facility] [place] [address], [place] MAGNESIUM BLOODon 05-18-2021 Magnesium [Mass/Vol] 1.9 mg/dL Normal 1.9-2.7 [facility] Comment on above: Order Comment: No: D o not add to previous draw Performed By: #### 4 1000, 67209, 64497, 79823 ####[facility] [place] [address], [place] PHOSPHORUS BLOODon 09-25-202 1 Phosphate [Mass/Vol] 4.2 mg/dL Normal 2.5-5.0 [facility] Comment on above: Order Comment: No: D o not add to previous draw Performed By: #### 4 1000, 04373, 12961, 37308 ####[facility] [place] [address], [facility] POC GLUCOSE LABon 05-18-2021 Glucose [Mass/Vol] 152 mg/dL High 70-100 [facility] Comment on above: Performed By: #### 8 5499 ####[facility] [place] [address], [facility] Glucose [Mass/Vol] 140 mg/dL High 70-100 [facility] Comment on above: Performed By: #### 8 5499 ####[facility] [facility] [place] [address], [facility] Glucose [Mass/Vol] 202 mg/dL High 70-100 [facility] Comment on above: Performed By: #### 8 5499 ####[facility] [facility] [place] [address], [facility] Glucose [Mass/Vol] 121 mg/dL High 70-100 [facility] Comment on above: Performed By: #### 8 5499 ####[facility] [facility].[address] PORTABLE CHEST 1 VIEWon 04-25 PORTABLE CHEST 1 VIEW Normal [facility] Comment on above: Order Comment: EValu ate for Effusion VANCOMYCIN TIMEDon 1 VANCOMYCIN TIMED 10.2 mcg/mL Normal [facility] Comment on above: Performed By: #### 4 1000, 53487, 32865, 10650 ####[facility] [place] [address], [facility] CBC W/DIFFon 05-17-2021 ABS IMM GRANS 0.0 10*3/uL Normal 0.0-0.2 [facility] Comment on above: Order Comment: No: D o not add to previous draw Performed By: #### 5 0103 ####[facility] [facility] [place] [address], [facility] ABS NEUTROPHILS 3.6 10*3/uL Normal 1.6-7.6 [facility] Comment on above: Order Comment: No: D o not add to previous draw Performed By: #### 5 0103 ####[facility] [facility] [place] [address], [facility] Basophils (Bld) [#/Vol] 0.1 10*3/uL Normal 0.0-0.2 [facility] Comment on above: Order Comment: No: D o not add to previous draw Performed By: #### 5 0103 ####[facility] [facility] [place] [address], [facility] Basophils/100 WBC (Bld) 0.9 % Normal 0.0-1.0 [facility] Comment on above: Order Comment: No: D o not add to previous draw Performed By: #### 5 0103 ####[facility] [facility] [place] [address], [facility] Eosinophils (Bld) [#/Vol] 0.1 10*3/uL Normal 0.0-0.5 [facility] Comment on above: Order Comment: No: D o not add to previous draw Performed By: #### 5 0103 ####[facility] [facility] [place] [address], [facility] Eosinophils/100 WBC (Bld) 0.9 % Normal 0.0-6.0 [facility] Comment on above: Order Comment: No: D o not add to previous draw Performed By: #### 5 0103 ####[facility] [facility] [place] [address], [facility] Erythrocyte distribution width (RBC) [Ratio] 14.6 % Normal 11.5-15.0 [facility] Comment on above: Order Comment: No: D o not add to previous draw Performed By: #### 5 0103 ####[facility] [facility].[address] Hematocrit (Bld) [Volume fraction] 27.7 % Low 39.0-50.0 [facility] Comment on above: Order Comment: No: D o not add to previous draw Performed By: #### 5 0103 ####[facility] Hemoglobin (Bld) [Mass/Vol] 8.5 g/dL Low 13.0-17.0 [facility] Comment on above: Order Comment: No: D o not add to previous draw Performed By: #### 5 0103 ####[facility] IMMATURE GRANS 0.5 % Normal 0.0-1.0 [facility] Comment on above: Order Comment: No: D o not add to previous draw Performed By: #### 5 0103 ####[address] Lymphocytes (Bld) [#/Vol] 1.4 10*3/uL Normal 1.2-4.0 [facility] Comment on above: Order Comment: No: D o not add to previous draw Performed By: #### 5 0103 ####[facility] [place] [address] Lymphocytes/100 WBC (Bld) 23.3 % Normal 20.0-45.0 [facility] Comment on above: Order Comment: No: D o not add to previous draw Performed By: #### 5 0103 ####[facility] [place] [address], [facility] MCH (RBC) [Entitic mass] 28.4 pg Normal 27.0-33.0 [facility] Comment on above: Order Comment: No: D o not add to previous draw Performed By: #### 5 0103 ####[facility] MCHC (RBC) [Mass/Vol] 30.7 g/dL Low 32.0-35.0 [facility] Comment on above: Order Comment: No: D o not add to previous draw Performed By: #### 5 0103 ####[facility] MCV (RBC) [Entitic vol] 92.6 fL Normal 82.0-98.0 [facility] Comment on above: Order Comment: No: D o not add to previous draw Performed By: #### 5 0103 ####[facility] Monocytes (Bld) [#/Vol] 0.7 10*3/uL Normal 0.1-1.0 [facility] Comment on above: Order Comment: No: D o not add to previous draw Performed By: #### 5 0103 ####[facility] [facility].[address] MONOS 11.7 % Normal 5.0-12.0 [facility] Comment on above: Order Comment: No: D o not add to previous draw Performed By: #### 5 0103 ####[facility] Neutrophils/100 WBC (Bld) 62.7 % Normal 40.0-72.0 [facility] Comment on above: Order Comment: No: D o not add to previous draw Performed By: #### 5 0103 ####[facility] Nucleated RBC/100 WBC (Bld) [Ratio] 0 % Normal 0-0 [facility] Comment on above: Order Comment: No: D o not add to previous draw Performed By: #### 5 0103 ####[facility] [place] [address], [facility] PLAT CNT 325 10*3/uL Normal 150-400 [facility] Comment on above: Order Comment: No: D o not add to previous draw Performed By: #### 5 0103 ####[facility] [place] [address], [facility] RBC (Bld) [#/Vol] 2.99 10*6/uL Low 4.20-5.70 [facility] Comment on above: Order Comment: No: D o not add to previous draw Performed By: #### 5 0103 ####[facility] [place] [address], [facility] WBC (Bld) [#/Vol] 5.79 10*3/uL Normal 4.00-10.60 [facility] Comment on above: Order Comment: No: D o not add to previous draw Performed By: #### 5 0103 ####[facility] [place] [address], [facility] COMP METABOLIC PANELon 05-17 Albumin [Mass/Vol] 2.8 g/dL Low 3.5-5.7 [facility] Comment on above: Order Comment: No: D o not add to previous draw Performed By: #### 4 1000, 61278, 99403 ####[facility] [place] [address], [facility] ALKALINE PHOSPH 55 IU/L Normal 34-104 [facility] Comment on above: Order Comment: No: D o not add to previous draw Performed By: #### 4 1000, 00079, 32439 ####[facility] [place] [address], [facility] ALT [Catalytic activity/Vol] 7 U/L Normal 7-52 [facility] Comment on above: Order Comment: No: D o not add to previous draw Performed By: #### 4 1000, 87763, 05349 ####[facility] [place] [address], [place] AST [Catalytic activity/Vol] 11 U/L Low 13-39 [facility] Comment on above: Order Comment: No: D o not add to previous draw Performed By: #### 4 1000, 55691, 95487 ####[facility] [place] [address], [place] Bilirubin [Mass/Vol] 0.6 mg/dL Normal 0.3-1.0 [facility] Comment on above: Order Comment: No: D o not add to previous draw Performed By: #### 4 1000, 24979, 17102 ####[facility] [place] [address], [place] Calcium [Mass/Vol] 8.2 mg/dL Low 8.6-10.3 [facility] Comment on above: Order Comment: No: D o not add to previous draw Performed By: #### 4 1000, 23881, 19856 ####[facility] [place] [address], [place] Chloride [Moles/Vol] 102 mmol/L Normal 98-107 [facility] Comment on above: Order Comment: No: D o not add to previous draw Performed By: #### 4 1000, 77380, 02178 ####[facility] [place] [address], [place] CO2 [Moles/Vol] 31 mmol/L Normal 21-31 [facility] Comment on above: Order Comment: No: D o not add to previous draw Performed By: #### 4 1000, 40808, 08140 ####[facility] [place] [address], [place] Creatinine [Mass/Vol] 1.19 mg/dL Normal 0.70-1.30 [facility] Comment on above: Order Comment: No: D o not add to previous draw Performed By: #### 4 1000, 70532, 96720 ####[facility] [place] [address], [facility] eGFR- non- 59 ml/min/1.73sq m Abnormal >60 [facility] Comment on above: Order Comment: No: D o not add to previous draw Result Comment: Calc ulation may not be valid for patients over 70 years Performed By: #### 4 1000, 14388, 26571 ####[facility] [place] [address], [facility] GFR/1.73 sq M.predicted among blacks MDRD (S/P/Bld) [Vol rate/Area] mL/min/{1.73_m2} Normal >60 [facility] Comment on above: Order Comment: No: D o not add to previous draw Result Comment: Calc ulation may not be valid for patients over 70 years Performed By: #### 4 1000, 31221, 93206 ####[facility] [place] [address], [facility] Glucose [Mass/Vol] 99 mg/dL Normal 70-100 [facility] Comment on above: Order Comment: No: D o not add to previous draw Performed By: #### 4 1000, 43231, 99726 ####[facility] [place] [address], [facility] Potassium [Moles/Vol] 3.7 mmol/L Normal 3.5-5.1 [facility] Comment on above: Order Comment: No: D o not add to previous draw Performed By: #### 4 1000, 60137, 18937 ####[facility] [place] [address], [place] Protein [Mass/Vol] 6.6 g/dL Normal 6.0-8.3 [facility] Comment on above: Order Comment: No: D o not add to previous draw Performed By: #### 4 1000, 98531, 40564 ####[facility] [place] [address], [facility] Sodium [Moles/Vol] 138 mmol/L Normal 136-145 [facility] Comment on above: Order Comment: No: D o not add to previous draw Performed By: #### 4 1000, 81287, 74542 ####[facility] [place] [address], [facility] Urea nitrogen [Mass/Vol] 16 mg/dL Normal 7-25 [facility] Comment on above: Order Comment: No: D o not add to previous draw Performed By: #### 4 1000, 08166, 99966 ####[facility] [place] [address], [facility] MAGNESIUM BLOODon 05-17-2021 Magnesium [Mass/Vol] 2.0 mg/dL Normal 1.9-2.7 [facility] Comment on above: Order Comment: No: D o not add to previous draw Performed By: #### 4 1000, 83600, 11552 ####[facility] [place] [address], [facility] PHOSPHORUS BLOODon Phosphate [Mass/Vol] 4.6 mg/dL Normal 2.5-5.0 [facility] Comment on above: Order Comment: No: D o not add to previous draw Performed By: #### 4 1000, 93673, 30653 ####[facility] [place] [address], [place] POC GLUCOSE LABon 05-17-2021 Glucose [Mass/Vol] 139 mg/dL High 70-100 [facility] Comment on above: Performed By: #### 8 5499 ####[facility] [place] [address], [place] Glucose [Mass/Vol] 100 mg/dL Normal 70-100 [facility] Comment on above: Performed By: #### 8 5499 ####[facility] [place] [address], [facility] Glucose [Mass/Vol] 122 mg/dL High 70-100 [facility] Comment on above: Performed By: #### 8 5499 ####[facility] [facility] [place] [address], [facility] Glucose [Mass/Vol] 107 mg/dL High 70-100 [facility] Comment on above: Performed By: #### 8 5499 ####[facility] [facility].[address] PORTABLE CHEST 1 VIEWon 04-25 PORTABLE CHEST 1 VIEW Normal [facility] Comment on above: Order Comment: evalu ate for Atelectasis *ANAEROBIC CULTUREon 021 *ANAEROBIC CULTURE Clinical Report: (D) Specimen/Source: TISSUE/INTRAOP SPEC Collected: 05/16/2021 10:48 Status: Final Last Updated: 05/21/2021 08:50 (1) STERNAL TISSUE ISO (Final) No Anaerobes Isolated Day 5 Normal [facility] Comment on above: Order Comment: BRANDT AL TISSUE Performed By: #### 3 0312 ####[facility] [place], [place] [id number] [place] [address] *ANAEROBIC CULTURE Clinical Report: (D) Specimen/Source: SWAB/INTRAOP SPEC Collected: 05/16/2021 10:45 Status: Final Last Updated: 05/21/2021 08:50 (1) STERNAL WOUND ISO (Final) No Anaerobes Isolated Day 5 Normal [facility] Comment on above: Order Comment: BRANDT AL WOUND Performed By: #### 3 0312 ####[facility] [facility].[address] *TISSUE CULTUREon 05-16-2021 *TISSUE CULTURE Normal [facility] Comment on above: Order Comment: BRANDT AL TISSUE Performed By: #### 3 0338 ####[facility] [facility].[address] *WOUND CULTUREon 05-16-2021 *WOUND CULTURE Normal [facility] Comment on above: Order Comment: BRANDT AL WOUND Performed By: #### 3 0343 ####[facility] [facility] [place] [address], [facility] APTTon 05-16-2021 aPTT Coag (Bld) [Time] 32.6 s Normal 25.0-35.0 Th [facility] Comment on above: Order [...] THIS PURPOSE. Performed By: #### 5 7307, 92095 ####[facility] [facility].[address] BASIC METABOLIC PANELon 04-25 Calcium [Mass/Vol] 8.5 mg/dL Low 8.6-10.3 [facility] Comment on above: Order Comment: No: D o not add to previous draw Performed By: #### 4 999, 43959, 15903 ####[facility] [facility] [place] [address], [facility] Chloride [Moles/Vol] 101 mmol/L Normal 98-107 [facility] Comment on above: Order Comment: No: D o not add to previous draw Performed By: #### 4 1000, 49328, 76812 ####[facility] [facility] [place] [address], [facility] CO2 [Moles/Vol] 31 mmol/L Normal 21-31 [facility] Comment on above: Order Comment: No: D o not add to previous draw Performed By: #### 4 1000, 03609, 24307 ####[facility] [place] [address], [facility] Creatinine [Mass/Vol] 0.66 mg/dL Low 0.70-1.30 [facility] Comment on above: Order Comment: No: D o not add to previous draw Performed By: #### 4 1000, 91759, 39587 ####[facility] [facility] [place] [address], [facility] GFR/1.73 sq M.predicted among blacks MDRD (S/P/Bld) [Vol rate/Area] mL/min/{1.73_m2} Normal >60 [facility] Comment on above: Order Comment: No: D o not add to previous draw Result Comment: Calc ulation may not be valid for patients over 70 years Performed By: #### 4 1000, 88044, 11465 ####[facility] [facility] [place] [address], [facility] GFR/1.73 sq M.predicted among non-blacks MDRD (S/P/Bld) [Vol rate/Area] mL/min/{1.73_m2} Normal >60 [facility] Comment on above: Order Comment: No: D o not add to previous draw Result Comment: Calc ulation may not be valid for patients over 70 years Performed By: #### 4 1000, 66997, 74784 ####[facility] [facility] [place] [address], [facility] Glucose [Mass/Vol] 117 mg/dL High 70-100 [facility] Comment on above: Order Comment: No: D o not add to previous draw Performed By: #### 4 1000, 24588, 97816 ####[facility] [facility] [place] [address], [facility] Potassium [Moles/Vol] 4.1 mmol/L Normal 3.5-5.1 [facility] Comment on above: Order Comment: No: D o not add to previous draw Performed By: #### 4 1000, 77221, 23109 ####[facility] [facility].[address] Sodium [Moles/Vol] 136 mmol/L Normal 136-145 [facility] Comment on above: Order Comment: No: D o not add to previous draw Performed By: #### 4 1000, 16227, 31920 ####[facility] [facility].[address] Urea nitrogen [Mass/Vol] 11 mg/dL Normal 7-25 [facility] Comment on above: Order Comment: No: D o not add to previous draw Performed By: #### 4 1000, 57852, 95132 ####[facility] [facility].[address] CBC COMPLETE BLOOD COUNTon 0 05-16-2021 Erythrocyte distribution width (RBC) [Ratio] 14.5 % Normal 11.5-15.0 [facility] Comment on above: Order Comment: No: D o not add to previous draw Performed By: #### 5 0608 ####[place] [address] [facility].[address] Hematocrit (Bld) [Volume fraction] 30.5 % Low 39.0-50.0 [facility] Comment on above: Order Comment: No: D o not add to previous draw Performed By: #### 5 0608 ####[facility] [facility].[address] Hemoglobin (Bld) [Mass/Vol] 9.5 g/dL Low 13.0-17.0 [facility] Comment on above: Order Comment: No: D o not add to previous draw Performed By: #### 5 0608 ####[address] MCH (RBC) [Entitic mass] 28.5 pg Normal 27.0-33.0 [facility] Comment on above: Order Comment: No: D o not add to previous draw Performed By: #### 5 0608 ####[facility] [facility].[address] MCHC (RBC) [Mass/Vol] 31.1 g/dL Low 32.0-35.0 [facility] Comment on above: Order Comment: No: D o not add to previous draw Performed By: #### 5 0608 ####[facility] MCV (RBC) [Entitic vol] 91.6 fL Normal 82.0-98.0 [facility] Comment on above: Order Comment: No: D o not add to previous draw Performed By: #### 5 0608 ####[facility] Nucleated RBC/100 WBC (Bld) [Ratio] 0 % Normal 0-0 [facility] Comment on above: Order Comment: No: D o not add to previous draw Performed By: #### 5 0608 ####[facility] PLAT CNT 353 10*3/uL Normal 150-400 [facility] Comment on above: Order Comment: No: D o not add to previous draw Performed By: #### 5 0608 ####[facility] [place] [address].[address] RBC (Bld) [#/Vol] 3.33 10*6/uL Low 4.20-5.70 [facility] Comment on above: Order Comment: No: D o not add to previous draw Performed By: #### 5 0608 ####[facility] [place] [address] WBC (Bld) [#/Vol] 5.98 10*3/uL Normal 4.00-10.60 [facility] Comment on above: Order Comment: No: D o not add to previous draw Performed By: #### 5 0608 ####[facility] [place] [address], [facility] LACTATE BLOODon 05-16-2021 Lactate [Moles/Vol] 0.6 mmol/L Normal .5-2.2 [facility] Comment on above: Order Comment: No: D o not add to previous draw Performed By: #### 1 0054 ####[facility] [place] [address], [facility] Lactate [Moles/Vol] 0.8 mmol/L Normal .5-2.2 [facility] Comment on above: Order Comment: No: D o not add to previous draw Performed By: #### 1 0054 ####[facility] [facility] [place] [address], [facility] MAGNESIUM BLOODon 05-16-2021 Magnesium [Mass/Vol] 1.9 mg/dL Normal 1.9-2.7 [facility] Comment on above: Order Comment: No: D o not add to previous draw Performed By: #### 4 1000, 05730, 63490 ####[facility] [facility] [place] [address], [facility] OSMOLALITY BLOODon 1 Osmolality [Osmolality] 292 mosm/kg Normal 285-305 [facility] Comment on above: Order Comment: No: D o not add to previous draw Performed By: #### 3 3901, 22355 ####[facility] [place] [address], [facility] Osmolality [Osmolality] 297 mosm/kg Normal 285-305 [facility] Comment on above: Order Comment: No: D o not add to previous draw Performed By: #### 3 9301, 33471 ####[facility] [place] [address], [facility] PHOSPHORUS BLOODon 1 Phosphate [Mass/Vol] 4.3 mg/dL Normal 2.5-5.0 [facility] Comment on above: Order Comment: No: D o not add to previous draw Performed By: #### 4 1000, 75214, 26227 ####[facility] [place] [address], [place] POC GLUCOSE LABon 05-16-2021 Glucose [Mass/Vol] 121 mg/dL High 70-100 [facility] Comment on above: Performed By: #### 8 5499 ####[facility] [place] [address], [place] Glucose [Mass/Vol] 126 mg/dL High 70-100 [facility] Comment on above: Performed By: #### 8 5499 ####[facility] [place] [address], [place] Glucose [Mass/Vol] 133 mg/dL High 70-100 [facility] Comment on above: Performed By: #### 8 5499 ####[facility] [place] [address], [place] Glucose [Mass/Vol] 131 mg/dL High 70-100 [facility] Comment on above: Performed By: #### 8 5499 ####[facility] [facility] [place] [address], [place] PORTABLE CHEST 1 VIEWon 04-25 PORTABLE CHEST 1 VIEW Normal [facility] Comment on above: Order Comment: Check NG Tube Position PORTABLE CHEST 1 VIEW Normal [facility] Comment on above: Order Comment: Evalu ate Atelectasis PROTHROMBIN TIMEon INR Coag (PPP) [Relative time] 1.15 {INR} Normal 0.91-1.16 [facility] Comment on above: [...] OF ACTION, CLINICALEFFECTIVENESS, AND OPTIMAL THERAPEUTIC RANGE. [id number]. Performed By: #### 5 7307, 12829 ####[facility] PT Coag (PPP) [Time] 14.7 s Normal 12.3-14.8 [facility] Comment on above: Order Comment: No: D o not add to previous draw Result Comment: ALL RESULTS MUST BE INTERPRETED WITH RESPECT TO BLOOD DRAWING ARTIFACTOR DILUTION ERROR OF ANTICOAGULANT AT THE TIME OF SAMPLING. Performed By: #### 5 7307, 67747 ####[facility] [place] [address], [facility] TRIGLYCERIDES BLOODon 2020 Triglyceride [Mass/Vol] 95 mg/dL Normal 40-149 [facility] Comment on above: Order Comment: No: D o not add to previous draw Result Comment: TRIG LYCERIDE REFERENCE RANGE:20 YEARS AND OLDER CARDIOVASCULAR RISKLESS THAN 150 mg/dl LOW [id number] TO 199 mg/dl BORDERLINE [id number] mg/dl AND GREATER HIGH RISK Performed By: #### 3 9301, 96555 ####[facility] [facility] [place] [address], [facility] Triglyceride [Mass/Vol] 98 mg/dL Normal 40-149 [facility] Comment on above: Order Comment: No: D o not add to previous draw Result Comment: TRIG LYCERIDE REFERENCE RANGE:20 YEARS AND OLDER CARDIOVASCULAR RISKLESS THAN 150 mg/dl LOW [id number] TO 199 mg/dl BORDERLINE [id number] mg/dl AND GREATER HIGH RISK Performed By: #### 3 9301, 74349 ####[facility] *BLOOD CULTUREon 05-15-2021 *BLOOD CULTURE Clinical Report: (D) Specimen: BLOOD CULTURE Collected: 05/15/2021 11:35 Status: Final Last Updated: 05/20/2021 14:11 (1) Prior to antibiotic administration CULT RES (Final) No Growth Day 5 Normal [facility] Comment on above: Order Comment: Prior to antibiotic administration Performed By: #### 3 0313 ####[place] [address] APTTon 05-15-2021 aPTT Coag (Bld) [Time] 30.4 s Normal 25.0-35.0 [facility] Comment on above: Result Comment: ALL [...] THIS PURPOSE. Performed By: #### 5 7307, 61049 ####[facility] ARTERIAL BLOOD GAS W/COOXon 05-15-2021 BASE EXCESS 2 mmol/L Normal -2-3 [facility] Comment on above: Order Comment: RESUL TS CHECKED AND CALLED. ACCURATELY READ BACK BY RADHIKA BLANTON. Performed By: #### 4 0055 ####[facility] COHB 2.3 % High 0.0-1.5 [facility] Comment on above: Order Comment: RESUL TS CHECKED AND CALLED. ACCURATELY READ BACK BY RADHIKA ED CHARGE. Performed By: #### 4 0055 ####[facility] [facility].[address] DELIVERY SYSTEMS [place] Normal [facility] Comment on above: Order Comment: RESUL TS CHECKED AND CALLED. ACCURATELY READ BACK BY RADHIKA ED CHARGE. Performed By: #### 4 0055 ####[facility] [facility].[address] HCO3 (Bld) [Moles/Vol] 29 mmol/L High 21-28 [facility] Comment on above: Order Comment: RESUL TS CHECKED AND CALLED. ACCURATELY READ BACK BY RADHIKA ED CHARGE. Performed By: #### 4 0055 ####[facility] [facility].[address] LPM 5.0 LPM Normal [facility] Comment on above: Order Comment: RESUL TS CHECKED AND CALLED. ACCURATELY READ BACK BY RADHIKA ED CHARGE. Performed By: #### 4 0055 ####[facility] [facility].[address] METHB 1.1 % Normal 0.0-1.5 [facility] Comment on above: Order Comment: RESUL TS CHECKED AND CALLED. ACCURATELY READ BACK BY RADHIKA ED CHARGE. Performed By: #### 4 0055 ####[facility] [facility].[address] MODALITY [place] Normal [facility] Comment on above: Order Comment: RESUL TS CHECKED AND CALLED. ACCURATELY READ BACK BY RADHIKA ED CHARGE. Performed By: #### 4 0055 ####[facility] [facility].[address] Oxygen (Bld) [Partial pressure] 83 mm[Hg] Normal 83-108 [facility] Comment on above: Order Comment: RESUL TS CHECKED AND CALLED. ACCURATELY READ BACK BY RADHIKA ED CHARGE. Performed By: #### 4 0055 ####[facility] [facility] Oxygen saturation in Blood 94.8 % Normal 94.0-97.0 [facility] Comment on above: Order Comment: RESUL TS CHECKED AND CALLED. ACCURATELY READ BACK BY RADHIKA ED CHARGE. Performed By: #### 4 0055 ####[facility] [facility] [place] [address], [facility] PCO2 58 mmHg Critically high 35-45 [facility] Comment on above: Order Comment: RESUL TS CHECKED AND CALLED. ACCURATELY READ BACK BY RADHIKA ED CHARGE. Performed By: #### 4 0055 ####[facility] [facility].[address] pH (Bld) 7.31 [pH] Low 7.35-7.45 [facility] Comment on above: Order Comment: RESUL TS CHECKED AND CALLED. ACCURATELY READ BACK BY RADHIKA ED CHARGE. Performed By: #### 4 0055 ####[facility] [facility].[address] THB 10.2 g/dL Low 12.0-16.3 [facility] Comment on above: Order Comment: RESUL TS CHECKED AND CALLED. ACCURATELY READ BACK BY RADHIKA ED CHARGE. Performed By: #### 4 0055 ####[facility] [facility].[address] BNP (B-TYPE NATRIURETIC PEPT MAX)on 05-15-2021 Natriuretic peptide B (Bld) [Mass/Vol] 136 pg/mL High 0-100 [facility] Comment on above: Order Comment: Yes: Add to Previous draw if able Result Comment: Give n the appropriate clinical setting a BNP result of >100 pg/mLindicates congestive heart failure. Performed By: #### 8 5123 ####[facility] [facility] [place] [address], [facility] CBC W/DIFFon 05-15-2021 ABS IMM GRANS 0.0 10*3/uL Normal 0.0-0.2 [facility] Comment on above: Performed By: #### 5 0103 ####[facility] [place] [address], [facility] ABS NEUTROPHILS 5.0 10*3/uL Normal 1.6-7.6 [facility] Comment on above: Performed By: #### 5 0103 ####[facility] [facility] [place] [address], [facility] Basophils (Bld) [#/Vol] 0.0 10*3/uL Normal 0.0-0.2 [facility] Comment on above: Performed By: #### 5 0103 ####[facility] [facility] [place] [address], [facility] Basophils/100 WBC (Bld) 0.6 % Normal 0.0-1.0 [facility] Comment on above: Performed By: #### 5 0103 ####[facility] [facility] [place] [address], [facility] Eosinophils (Bld) [#/Vol] 0.1 10*3/uL Normal 0.0-0.5 [facility] Comment on above: Performed By: #### 5 0103 ####[facility] [facility] [place] [address], [facility] Eosinophils/100 WBC (Bld) 0.7 % Normal 0.0-6.0 [facility] Comment on above: Performed By: #### 5 0103 ####[facility] [facility] [place] [address], [facility] Erythrocyte distribution width (RBC) [Ratio] 14.5 % Normal 11.5-15.0 [facility] Comment on above: Performed By: #### 5 0103 ####[facility] [facility] [place] [address], [facility] Hematocrit (Bld) [Volume fraction] 32.5 % Low 39.0-50.0 [facility] Comment on above: Performed By: #### 5 0103 ####[facility] Hemoglobin (Bld) [Mass/Vol] 10.3 g/dL Low 13.0-17.0 [facility] Comment on above: Performed By: #### 5 0103 ####[facility] [place] [address] IMMATURE GRANS 0.6 % Normal 0.0-1.0 [facility] Comment on above: Performed By: #### 5 0103 ####[address] Lymphocytes (Bld) [#/Vol] 1.1 10*3/uL Low 1.2-4.0 [facility] Comment on above: Performed By: #### 5 0103 ####[facility] [place] [address] Lymphocytes/100 WBC (Bld) 15.9 % Low 20.0-45.0 [facility] Comment on above: Performed By: #### 5 0103 ####[place] [address] [address] MCH (RBC) [Entitic mass] 28.8 pg Normal 27.0-33.0 [facility] Comment on above: Performed By: #### 5 0103 ####[facility] MCHC (RBC) [Mass/Vol] 31.7 g/dL Low 32.0-35.0 [facility] Comment on above: Performed By: #### 5 3 ####[facility] [place] [address], [facility] MCV (RBC) [Entitic vol] 90.8 fL Normal 82.0-98.0 [facility] Comment on above: Performed By: #### 5 3 ####[facility] [facility] [place] [address], [facility] Monocytes (Bld) [#/Vol] 0.8 10*3/uL Normal 0.1-1.0 [facility] Comment on above: Performed By: #### 5 3 ####[facility] [facility].[address] MONOS 11.2 % Normal 5.0-12.0 [facility] Comment on above: Performed By: #### 5 102 ####[facility] [facility].[address] Neutrophils/100 WBC (Bld) 71.0 % Normal 40.0-72.0 [facility] Comment on above: Performed By: #### 5 102 ####[facility] Nucleated RBC/100 WBC (Bld) [Ratio] 0 % Normal 0-0 [facility] Comment on above: Performed By: #### 5 3 ####[facility] [facility].[address] PLAT CNT 376 10*3/uL Normal 150-400 [facility] Comment on above: Performed By: #### 5 3 ####[facility] [facility].[address] RBC (Bld) [#/Vol] 3.58 10*6/uL Low 4.20-5.70 [facility] Comment on above: Performed By: #### 5 3 ####[facility] [facility] [place] [address], [facility] WBC (Bld) [#/Vol] 7.03 10*3/uL Normal 4.00-10.60 [facility] Comment on above: Performed By: #### 5 0103 ####[facility] [place] [address], [facility] COMP METABOLIC PANELon 05-15 Albumin [Mass/Vol] 3.2 g/dL Low 3.5-5.7 [facility] Comment on above: Performed By: #### 4 1000, 05004, 60289, 47010 ####[facility] [place] [address], [facility] ALKALINE PHOSPH 84 IU/L Normal 34-104 [facility] Comment on above: Performed By: #### 4 1000, 20834, 61157, 82431 ####[facility] [place] [address], [place] ALT [Catalytic activity/Vol] 11 U/L Normal 7-52 [facility] Comment on above: Performed By: #### 4 1000, 61823, 86315, 94861 ####[facility] [place] [address], [place] AST [Catalytic activity/Vol] 12 U/L Low 13-39 [facility] Comment on above: Performed By: #### 4 1000, 19001, 70471, 33195 ####[facility] [place] [address], [place] Bilirubin [Mass/Vol] 0.9 mg/dL Normal 0.3-1.0 [facility] Comment on above: Performed By: #### 4 1000, 25522, 60166, 18750 ####[facility] [place] [address], [place] Calcium [Mass/Vol] 8.3 mg/dL Low 8.6-10.3 [facility] Comment on above: Performed By: #### 4 1000, 35707, 61228, 88438 ####[facility] [place] [address], [place] Chloride [Moles/Vol] 101 mmol/L Normal 98-107 [facility] Comment on above: Performed By: #### 4 1000, 14013, 62852, 19290 ####[facility] [place] [address], [place] CO2 [Moles/Vol] 30 mmol/L Normal 21-31 [facility] Comment on above: Performed By: #### 4 1000, 97261, 58917, 99173 ####[facility] [place] [address], [place] Creatinine [Mass/Vol] 0.92 mg/dL Normal 0.70-1.30 [facility] Comment on above: Performed By: #### 4 1000, 85115, 91160, 46034 ####[facility] [place] [address], [place] GFR/1.73 sq M.predicted among blacks MDRD (S/P/Bld) [Vol rate/Area] mL/min/{1.73_m2} Normal >60 [facility] Comment on above: Result Comment: Calc ulation may not be valid for patients over 70 years Performed By: #### 4 1000, 55541, 69833, 42447 ####[facility] [place] [address], [place] GFR/1.73 sq M.predicted among non-blacks MDRD (S/P/Bld) [Vol rate/Area] mL/min/{1.73_m2} Normal >60 [facility] Comment on above: Result Comment: Calc ulation may not be valid for patients over 70 years Performed By: #### 4 1000, 19293, 49372, 29636 ####[facility] [place] [address], [place] Glucose [Mass/Vol] 138 mg/dL High 70-100 [facility] Comment on above: Performed By: #### 4 1000, 73025, 57919, 67759 ####[facility] [place] [address], [facility] Potassium [Moles/Vol] 4.1 mmol/L Normal 3.5-5.1 [facility] Comment on above: Performed By: #### 4 1000, 10422, 12783, 16767 ####[facility] [place] [address], [place] Protein [Mass/Vol] 7.4 g/dL Normal 6.0-8.3 [facility] Comment on above: Performed By: #### 4 1000, 36090, 56338, 01641 ####[facility] [place] [address], [facility] Sodium [Moles/Vol] 136 mmol/L Normal 136-145 [facility] Comment on above: Performed By: #### 4 1000, 75071, 64644, 07994 ####[facility] [place] [address], [place] Urea nitrogen [Mass/Vol] 8 mg/dL Normal 7-25 [facility] Comment on above: Performed By: #### 4 1000, 56354, 80882, 54284 ####[facility] [place] [address], [facility] LACTATE BLOODon 05-15-2021 Lactate [Moles/Vol] 0.7 mmol/L Normal .5-2.2 [facility] Comment on above: Order Comment: Repea t Lactate in 4 hours Performed By: #### 1 0054 ####[facility] [place] [address], [place] MAGNESIUM BLOODon 05-15-2021 Magnesium [Mass/Vol] 2.0 mg/dL Normal 1.9-2.7 [facility] Comment on above: Performed By: #### 4 1000, 95270, 89075, 35920 ####[facility] [place] [address], [facility] PHOSPHORUS BLOODon Phosphate [Mass/Vol] 6.0 mg/dL High 2.5-5.0 [facility] Comment on above: Performed By: #### 4 1000, 35422, 37524, 87832 ####[facility] [facility] [place] [address], [facility] POC GLUCOSE LABon 05-15-2021 Glucose [Mass/Vol] 225 mg/dL High 70-100 [facility] Comment on above: Performed By: #### 8 5499 ####[facility] [facility].[address] POC SARS COV2 ANTIGEN NEGATI VEon 05-15-2021 POC SARS COV2 ANTIGEN NEG Negative Normal NEGATIVE [facility] Comment on above: Result Comment: [...] of clinicalsigns and symptoms consistent with COVID-19.[employer] COVID-19 Ag Card is a lateral flow immunoassay intended forthe qualitative detection of nucleocapsid protein antigen [id number] in direct nasal swabs from individuals within [...] Certificate ofAccreditation. Performed By: #### 3 1977 ####[facility] [place], [place] [address] PORTABLE CHEST 1 VIEWon 04-25 PORTABLE CHEST 1 VIEW Normal [facility] Comment on above: Order Comment: Evalu ate for Infiltrates, hypoxia, infected sternotomy site PROTHROMBIN TIMEon INR Coag (PPP) [Relative time] 1.07 {INR} Normal 0.91-1.16 [facility] Comment on above: Result Comment: ACCC P RECOMMENDED INR FOR WARFARIN THERAPY CONDITION INRPROPHYLAXIS OF VENOUS THROMBOSIS 2-3(HIGH-RISK SURGERY)TREATMENT OF VENOUS THROMBOSIS 2-3TREATMENT OF PULMONARY EMBOLISM 2-3PREVENTION OF SYSTEMIC EMBOLISM: 2-3 ACUTE MYOCARDIAL INFARCTION TISSUE HEART VALVES VALVULAR HEART DISEASE ATRIAL FIBRILLATION RECURRENT SYSTEMIC EMBOLISMMECHANICAL HEART VALVE 2.5-3.5 FROM: ORAL ANTICOAGULANTS. MECHANISM OF ACTION, CLINICALEFFECTIVENESS, AND OPTIMAL THERAPEUTIC RANGE. [id number]. Performed By: #### 5 7307, 51769 ####[facility] [place] [address], [facility] PT Coag (PPP) [Time] 13.9 s Normal 12.3-14.8 [facility] Comment on above: Result Comment: ALL RESULTS MUST BE INTERPRETED WITH RESPECT TO BLOOD DRAWING ARTIFACTOR DILUTION ERROR OF ANTICOAGULANT AT THE TIME OF SAMPLING. Performed By: #### 5 7307, 09359 ####[facility] [place] [address], [facility] TROPONIN-Ion 05-15-2021 Troponin I.cardiac [Mass/Vol] 0.01 ng/mL Normal 0.00-0.04 [facility] Comment on above: Result Comment: REFE RENCE RANGES: 0.00 - 0.04 ng/ml NORMAL 0.05 - 0.50 ng/ml INDETERMINATE > 0.50 ng/ml CONSISTENT WITH AN M.I. Performed By: #### 4 1000, 85834, 26860, 80274 ####[facility] [place] [address], [facility] TYPE AND SCREENon 05-15-2021 ABO INTERPRETATION O Normal [facility] Comment on above: Performed By: #### 6 2586 ####[facility] [place] [address], [place] RH INTERPRETATION Positive Normal [facility] Comment on above: Performed By: #### 6 2586 ####[facility] [place] [address], [place] POC GLUCOSE LABon 04-15-2021 Glucose [Mass/Vol] 143 mg/dL High 70-100 [facility] Comment on above: Performed By: #### 8 5499 ####[facility] [place] [address], [place] Glucose [Mass/Vol] 241 mg/dL High 70-100 [facility] Comment on above: Performed By: #### 8 5499 ####[facility] [place] [address], [place] Glucose [Mass/Vol] 121 mg/dL High 70-100 [facility] Comment on above: Performed By: #### 8 5499 ####[facility] [place] [address], [place] POC SARS COV2 ANTIGEN NEGATI VEon 04-15-2021 POC SARS COV2 ANTIGEN NEG Negative Normal NEGATIVE [facility] Comment on above: Result Comment: [...] of clinicalsigns and symptoms consistent with COVID-19.[employer] COVID-19 Ag Card is a lateral flow immunoassay intended forthe qualitative detection of nucleocapsid protein antigen [id number] in direct nasal swabs from individuals within [...] Certificate ofAccreditation. Performed By: #### 3 1977 ####[address] BASIC METABOLIC PANELon 03-25 Calcium [Mass/Vol] 8.7 mg/dL Normal 8.6-10.3 [facility] Comment on above: Order Comment: No: D o not add to previous draw Performed By: #### 0 0071, 75766 ####[place] [address] [facility] [place] [address], [facility] Chloride [Moles/Vol] 95 mmol/L Low 98-107 [facility] Comment on above: Order Comment: No: D o not add to previous draw Performed By: #### 0 0071, 73501 ####[place] [address] [facility] [place] [address], [facility] CO2 [Moles/Vol] 27 mmol/L Normal 21-31 [facility] Comment on above: Order Comment: No: D o not add to previous draw Performed By: #### 0 0071, 58510 ####[place] [address] [facility] [place] [address], [facility] Creatinine [Mass/Vol] 0.80 mg/dL Normal 0.70-1.30 [facility] Comment on above: Order Comment: No: D o not add to previous draw Performed By: #### 0 0071, 90390 ####[facility] [place] [address], [facility] GFR/1.73 sq M.predicted among blacks MDRD (S/P/Bld) [Vol rate/Area] mL/min/{1.73_m2} Normal >60 [facility] Comment on above: Order Comment: No: D o not add to previous draw Result Comment: Calc ulation may not be valid for patients over 70 years Performed By: #### 0 0071, 28371 ####[facility] [place] [address], [facility] GFR/1.73 sq M.predicted among non-blacks MDRD (S/P/Bld) [Vol rate/Area] mL/min/{1.73_m2} Normal >60 [facility] Comment on above: Order Comment: No: D o not add to previous draw Result Comment: Calc ulation may not be valid for patients over 70 years Performed By: #### 0 0071, 77513 ####[facility] [place] [address], [facility] Glucose [Mass/Vol] 108 mg/dL High 70-100 [facility] Comment on above: Order Comment: No: D o not add to previous draw Performed By: #### 0 0071, 11785 ####[facility] [place] [address], [place] Potassium [Moles/Vol] 3.6 mmol/L Normal 3.5-5.1 [facility] Comment on above: Order Comment: No: D o not add to previous draw Performed By: #### 0 0071, 29214 ####[facility] [place] [address], [place] Sodium [Moles/Vol] 132 mmol/L Low 136-145 [facility] Comment on above: Order Comment: No: D o not add to previous draw Performed By: #### 0 0071, 55987 ####[facility] [facility].[address] Urea nitrogen [Mass/Vol] 38 mg/dL High 7-25 [facility] Comment on above: Order Comment: No: D o not add to previous draw Performed By: #### 0 0071, 23884 ####[facility] [facility].[address] CBC COMPLETE BLOOD COUNTon 04-14-2021 Erythrocyte distribution width (RBC) [Ratio] 14.1 % Normal 11.5-15.0 [facility] Comment on above: Order Comment: No: D o not add to previous draw Performed By: #### 5 0608 ####[facility] [facility].[address] Hematocrit (Bld) [Volume fraction] 33.5 % Low 39.0-50.0 [facility] Comment on above: Order Comment: No: D o not add to previous draw Performed By: #### 5 0608 ####[facility] Hemoglobin (Bld) [Mass/Vol] 11.3 g/dL Low 13.0-17.0 [facility] Comment on above: Order Comment: No: D o not add to previous draw Performed By: #### 5 0608 ####[facility] [facility] [place] [address], [facility] MCH (RBC) [Entitic mass] 30.2 pg Normal 27.0-33.0 [facility] Comment on above: Order Comment: No: D o not add to previous draw Performed By: #### 5 0608 ####[facility] [facility] [place] [address], [facility] MCHC (RBC) [Mass/Vol] 33.7 g/dL Normal 32.0-35.0 [facility] Comment on above: Order Comment: No: D o not add to previous draw Performed By: #### 5 0608 ####[facility] [place] [address], [facility] MCV (RBC) [Entitic vol] 89.6 fL Normal 82.0-98.0 [facility] Comment on above: Order Comment: No: D o not add to previous draw Performed By: #### 5 0608 ####[facility]3000 [facility].[address] Nucleated RBC/100 WBC (Bld) [Ratio] 0 % Normal 0-0 [facility] Comment on above: Order Comment: No: D o not add to previous draw Performed By: #### 5 0608 ####[facility]3000 [facility].[address] PLAT CNT 314 10*3/uL Normal 150-400 [facility] Comment on above: Order Comment: No: D o not add to previous draw Performed By: #### 5 0608 ####[facility]3000 [facility].[address] RBC (Bld) [#/Vol] 3.74 10*6/uL Low 4.20-5.70 [facility] Comment on above: Order Comment: No: D o not add to previous draw Performed By: #### 5 0608 ####[facility]3000 [facility] [place] [address], [facility] WBC (Bld) [#/Vol] 10.84 10*3/uL High 4.00-10.60 [facility] Comment on above: Order Comment: No: D o not add to previous draw Performed By: #### 5 0608 ####[facility] [place] [address], [place] MAGNESIUM BLOODon 04-14-2021 Magnesium [Mass/Vol] 1.9 mg/dL Normal 1.9-2.7 [facility] Comment on above: Order Comment: No: D o not add to previous draw Performed By: #### 0 0071, [id number] ####[facility] [place] [address], [place] POC GLUCOSE LABon 04-14-2021 Glucose [Mass/Vol] 168 mg/dL High 70-100 [facility] Comment on above: Performed By: #### 8 5499 ####[facility] [place] [address], [place] Glucose [Mass/Vol] 133 mg/dL High 70-100 [facility] Comment on above: Performed By: #### 8 5499 ####[facility] [place] [address], [place] Glucose [Mass/Vol] 167 mg/dL High 70-100 [facility] Comment on above: Performed By: #### 8 5499 ####[facility] [place] [address], [place] Glucose [Mass/Vol] 146 mg/dL High 70-100 [facility] Comment on above: Performed By: #### 8 5499 ####[facility] [place] [address], [place] Glucose [Mass/Vol] 152 mg/dL High 70-100 [facility] Comment on above: Performed By: #### 8 5499 ####[facility] [place] [address], [place] PORTABLE CHEST 1 VIEWon 03-25 PORTABLE CHEST 1 VIEW Normal [facility] Comment on above: Order Comment: evalu ate Atelectasis BASIC METABOLIC PANELon 03-25 Calcium [Mass/Vol] 9.1 mg/dL Normal 8.6-10.3 [facility] Comment on above: Order Comment: No: D o not add to previous draw Performed By: #### 1 69, 55387 ####[facility] [place] [address], [facility] Chloride [Moles/Vol] 94 mmol/L Low 98-107 [facility] Comment on above: Order Comment: No: D o not add to previous draw Performed By: #### 1 69, 81637 ####[facility] [place] [address], [facility] CO2 [Moles/Vol] 27 mmol/L Normal 21-31 [facility] Comment on above: Order Comment: No: D o not add to previous draw Performed By: #### 1 69, 11200 ####[facility] [facility] [place] [address], [facility] Creatinine [Mass/Vol] 0.87 mg/dL Normal 0.70-1.30 [facility] Comment on above: Order Comment: No: D o not add to previous draw Performed By: #### 1 69, 30882 ####[facility] [place] [address], [facility] GFR/1.73 sq M.predicted among blacks MDRD (S/P/Bld) [Vol rate/Area] mL/min/{1.73_m2} Normal >60 [facility] Comment on above: Order Comment: No: D o not add to previous draw Result Comment: Calc ulation may not be valid for patients over 70 years Performed By: #### 1 69, 28565 ####[facility] [place] [address], [facility] GFR/1.73 sq M.predicted among non-blacks MDRD (S/P/Bld) [Vol rate/Area] mL/min/{1.73_m2} Normal >60 [facility] Comment on above: Order Comment: No: D o not add to previous draw Result Comment: Calc ulation may not be valid for patients over 70 years Performed By: #### 1 69, 49566 ####[facility] [place] [address], [facility] Glucose [Mass/Vol] 125 mg/dL High 70-100 [facility] Comment on above: Order Comment: No: D o not add to previous draw Performed By: #### 1 69, 77398 ####[facility] [place] [address], [facility] Potassium [Moles/Vol] 3.2 mmol/L Low 3.5-5.1 [facility] Comment on above: Order Comment: No: D o not add to previous draw Performed By: #### 1 69, 72416 ####[facility] Sodium [Moles/Vol] 132 mmol/L Low 136-145 [facility] Comment on above: Order Comment: No: D o not add to previous draw Performed By: #### 1 69, 19403 ####[facility] [facility] Urea nitrogen [Mass/Vol] 27 mg/dL High 7-25 [facility] Comment on above: Order Comment: No: D o not add to previous draw Performed By: #### 1 69, 60114 ####[facility]3000 [facility].[address] CBC COMPLETE BLOOD COUNTon 0 - Erythrocyte distribution width (RBC) [Ratio] 14.2 % Normal 11.5-15.0 [facility] Comment on above: Order Comment: No: D o not add to previous draw Performed By: #### 5 0608 ####[facility] Hematocrit (Bld) [Volume fraction] 35.2 % Low 39.0-50.0 [facility] Comment on above: Order Comment: No: D o not add to previous draw Performed By: #### 5 0608 ####[facility] Hemoglobin (Bld) [Mass/Vol] 11.9 g/dL Low 13.0-17.0 [facility] Comment on above: Order Comment: No: D o not add to previous draw Performed By: #### 5 0608 ####[facility] MCH (RBC) [Entitic mass] 30.6 pg Normal 27.0-33.0 [facility] Comment on above: Order Comment: No: D o not add to previous draw Performed By: #### 5 0608 ####[place] [address] [address] MCHC (RBC) [Mass/Vol] 33.8 g/dL Normal 32.0-35.0 [facility] Comment on above: Order Comment: No: D o not add to previous draw Performed By: #### 5 0608 ####[place] [address] MCV (RBC) [Entitic vol] 90.5 fL Normal 82.0-98.0 [facility] Comment on above: Order Comment: No: D o not add to previous draw Performed By: #### 5 0608 ####[facility] [place] [address] Nucleated RBC/100 WBC (Bld) [Ratio] 0 % Normal 0-0 [facility] Comment on above: Order Comment: No: D o not add to previous draw Performed By: #### 5 0608 ####[facility] [place] [address] PLAT CNT 285 10*3/uL Normal 150-400 [facility] Comment on above: Order Comment: No: D o not add to previous draw Performed By: #### 5 0608 ####[facility] [place] [address], [facility] RBC (Bld) [#/Vol] 3.89 10*6/uL Low 4.20-5.70 [facility] Comment on above: Order Comment: No: D o not add to previous draw Performed By: #### 5 0608 ####[facility] [place] [address], [facility] WBC (Bld) [#/Vol] 9.92 10*3/uL Normal 4.00-10.60 [facility] Comment on above: Order Comment: No: D o not add to previous draw Performed By: #### 5 0608 ####[facility] [facility] [place] [address], [facility] MAGNESIUM BLOODon 04-13-2021 Magnesium [Mass/Vol] 1.9 mg/dL Normal 1.9-2.7 [facility] Comment on above: Order Comment: No: D o not add to previous draw Performed By: #### 1 0070, 91250 ####[facility] [facility] [place] [address], [facility] POC GLUCOSE LABon 04-13-2021 Glucose [Mass/Vol] 106 mg/dL High 70-100 [facility] Comment on above: Performed By: #### 8 5499 ####[facility] [facility] [place] [address], [facility] Glucose [Mass/Vol] 185 mg/dL High 70-100 [facility] Comment on above: Performed By: #### 8 5499 ####[facility] [facility] [place] [address], [place] Glucose [Mass/Vol] 136 mg/dL High 70-100 [facility] Comment on above: Performed By: #### 8 5499 ####[facility] [place] [address], [facility] PORTABLE CHEST 1 VIEWon 03-25 PORTABLE CHEST 1 VIEW Normal [facility] Comment on above: Order Comment: evalu ate for Atelectasis BASIC METABOLIC PANELon 03-25 Calcium [Mass/Vol] 8.3 mg/dL Low 8.6-10.3 [facility] Comment on above: Order Comment: No: D o not add to previous draw Performed By: #### 1 69, 48478 ####[facility] [place] [address], [facility] Chloride [Moles/Vol] 102 mmol/L Normal 98-107 [facility] Comment on above: Order Comment: No: D o not add to previous draw Performed By: #### 1 69, 50140 ####[facility] [place] [address], [facility] CO2 [Moles/Vol] 25 mmol/L Normal 21-31 [facility] Comment on above: Order Comment: No: D o not add to previous draw Performed By: #### 1 69, 15123 ####[facility] [place] [address], [facility] Creatinine [Mass/Vol] 0.67 mg/dL Low 0.70-1.30 [facility] Comment on above: Order Comment: No: D o not add to previous draw Performed By: #### 1 69, 93349 ####[facility] [place] [address], [place] GFR/1.73 sq M.predicted among blacks MDRD (S/P/Bld) [Vol rate/Area] mL/min/{1.73_m2} Normal >60 [facility] Comment on above: Order Comment: No: D o not add to previous draw Result Comment: Calc ulation may not be valid for patients over 70 years Performed By: #### 1 69, 40185 ####[facility] [facility] [place] [address], [facility] GFR/1.73 sq M.predicted among non-blacks MDRD (S/P/Bld) [Vol rate/Area] mL/min/{1.73_m2} Normal >60 [facility] Comment on above: Order Comment: No: D o not add to previous draw Result Comment: Calc ulation may not be valid for patients over 70 years Performed By: #### 1 69, 04646 ####[facility] [facility] [place] [address], [facility] Glucose [Mass/Vol] 116 mg/dL High 70-100 [facility] Comment on above: Order Comment: No: D o not add to previous draw Performed By: #### 1 69, 65275 ####[place] [address] [facility] [place] [address], [facility] Potassium [Moles/Vol] 4.0 mmol/L Normal 3.5-5.1 [facility] Comment on above: Order Comment: No: D o not add to previous draw Performed By: #### 1 69, 58827 ####[place] [address] [facility] [place] [address], [facility] Sodium [Moles/Vol] 134 mmol/L Low 136-145 [facility] Comment on above: Order Comment: No: D o not add to previous draw Performed By: #### 1 69, 72606 ####[place] [address] [facility] [place] [address], [facility] Urea nitrogen [Mass/Vol] 22 mg/dL Normal 7-25 [facility] Comment on above: Order Comment: No: D o not add to previous draw Performed By: #### 1 69, 58526 ####[place] [address] [facility] [place] [address], [facility] CBC COMPLETE BLOOD COUNTon 0 - Erythrocyte distribution width (RBC) [Ratio] 14.6 % Normal 11.5-15.0 [facility] Comment on above: Order Comment: No: D o not add to previous draw Performed By: #### 5 0608 ####[facility] [facility].[address] Hematocrit (Bld) [Volume fraction] 33.1 % Low 39.0-50.0 [facility] Comment on above: Order Comment: No: D o not add to previous draw Performed By: #### 5 0608 ####[facility] [place] [address] Hemoglobin (Bld) [Mass/Vol] 10.6 g/dL Low 13.0-17.0 [facility] Comment on above: Order Comment: No: D o not add to previous draw Performed By: #### 5 0608 ####[address] MCH (RBC) [Entitic mass] 30.0 pg Normal 27.0-33.0 [facility] Comment on above: Order Comment: No: D o not add to previous draw Performed By: #### 5 0608 ####[address] MCHC (RBC) [Mass/Vol] 32.0 g/dL Normal 32.0-35.0 [facility] Comment on above: Order Comment: No: D o not add to previous draw Performed By: #### 5 0608 ####[address] MCV (RBC) [Entitic vol] 93.8 fL Normal 82.0-98.0 [facility] Comment on above: Order Comment: No: D o not add to previous draw Performed By: #### 5 0608 ####[address] Nucleated RBC/100 WBC (Bld) [Ratio] 0 % Normal 0-0 [facility] Comment on above: Order Comment: No: D o not add to previous draw Performed By: #### 5 0608 ####[facility] [place] [address], [facility] PLAT CNT 213 10*3/uL Normal 150-400 [facility] Comment on above: Order Comment: No: D o not add to previous draw Performed By: #### 5 0608 ####[facility] [place] [address], [facility] RBC (Bld) [#/Vol] 3.53 10*6/uL Low 4.20-5.70 [facility] Comment on above: Order Comment: No: D o not add to previous draw Performed By: #### 5 0608 ####[facility] [place] [address], [facility] WBC (Bld) [#/Vol] 7.64 10*3/uL Normal 4.00-10.60 [facility] Comment on above: Order Comment: No: D o not add to previous draw Performed By: #### 5 0608 ####[facility] [place] [address], [facility] MAGNESIUM BLOODon 04-12-2021 Magnesium [Mass/Vol] 1.9 mg/dL Normal 1.9-2.7 [facility] Comment on above: Order Comment: No: D o not add to previous draw Performed By: #### 1 0070, 78862 ####[facility] [place] [address], [facility] POC GLUCOSE LABon 04-12-2021 Glucose [Mass/Vol] 126 mg/dL High 70-100 [facility] Comment on above: Performed By: #### 8 5499 ####[facility] [facility] [place] [address], [facility] Glucose [Mass/Vol] 131 mg/dL High 70-100 [facility] Comment on above: Performed By: #### 8 5499 ####[facility]3000 [facility].[address] Glucose [Mass/Vol] 167 mg/dL High 70-100 [facility] Comment on above: Performed By: #### 8 5499 ####[facility] [place], [place] [id number] [place] [address] POC SARS COV2 ANTIGEN NEGATI VEon 04-12-2021 POC SARS COV2 ANTIGEN NEG Negative Normal NEGATIVE [facility] Comment on above: Result Comment: [...] of clinicalsigns and symptoms consistent with COVID-19.[employer] COVID-19 Ag Card is a lateral flow immunoassay intended forthe qualitative detection of nucleocapsid protein antigen [id number] in direct nasal swabs from individuals within [...] Certificate ofAccreditation. Performed By: #### 3 1977 ####[facility] POC SARS COV2 ANTIGEN NEG Negative Normal NEGATIVE [facility] Comment on above: Result Comment: [...] of clinicalsigns and symptoms consistent with COVID-19.[employer] COVID-19 Ag Card is a lateral flow immunoassay intended forthe qualitative detection of nucleocapsid protein antigen [id number] in direct nasal swabs from individuals within [...] Certificate ofAccreditation. Performed By: #### 3 1977 ####[facility]3000 [facility].[address] PORTABLE CHEST 1 VIEWon 03-25 PORTABLE CHEST 1 VIEW Normal [facility] Comment on above: Order Comment: evalu ate for Atelectasis BASIC METABOLIC PANELon 03-24 Calcium [Mass/Vol] 7.9 mg/dL Low 8.6-10.3 [facility] Comment on above: Order Comment: No: D o not add to previous draw Performed By: #### 4 999, 39122, 05322 ####[facility] [facility] [place] [address], [facility] Chloride [Moles/Vol] 100 mmol/L Normal 98-107 [facility] Comment on above: Order Comment: No: D o not add to previous draw Performed By: #### 4 999, 61582, 69144 ####[facility] [facility] [place] [address], [facility] CO2 [Moles/Vol] 27 mmol/L Normal 21-31 [facility] Comment on above: Order Comment: No: D o not add to previous draw Performed By: #### 4 999, 63377, 44015 ####[facility] [place] [address], [facility] Creatinine [Mass/Vol] 0.80 mg/dL Normal 0.70-1.30 [facility] Comment on above: Order Comment: No: D o not add to previous draw Performed By: #### 4 999, 58620, 01957 ####[facility] [facility] [place] [address], [facility] GFR/1.73 sq M.predicted among blacks MDRD (S/P/Bld) [Vol rate/Area] mL/min/{1.73_m2} Normal >60 [facility] Comment on above: Order Comment: No: D o not add to previous draw Result Comment: Calc ulation may not be valid for patients over 70 years Performed By: #### 4 999, 10230, 01250 ####[facility] [facility] [place] [address], [facility] GFR/1.73 sq M.predicted among non-blacks MDRD (S/P/Bld) [Vol rate/Area] mL/min/{1.73_m2} Normal >60 [facility] Comment on above: Order Comment: No: D o not add to previous draw Result Comment: Calc ulation may not be valid for patients over 70 years Performed By: #### 4 999, 34931, 11131 ####[facility] [facility] [place] [address], [facility] Glucose [Mass/Vol] 135 mg/dL High 70-100 [facility] Comment on above: Order Comment: No: D o not add to previous draw Performed By: #### 4 1000, 37785, 54695 ####[facility] [facility] [place] [address], [facility] Potassium [Moles/Vol] 3.4 mmol/L Low 3.5-5.1 [facility] Comment on above: Order Comment: No: D o not add to previous draw Performed By: #### 4 1000, 14001, 51589 ####[facility]3000 [facility].[address] Sodium [Moles/Vol] 134 mmol/L Low 136-145 [facility] Comment on above: Order Comment: No: D o not add to previous draw Performed By: #### 4 1000, 29575, 00650 ####[facility]3000 [facility].[address] Urea nitrogen [Mass/Vol] 21 mg/dL Normal 7-25 [facility] Comment on above: Order Comment: No: D o not add to previous draw Performed By: #### 4 1000, 94325, 41939 ####[facility]3000 [facility].[address] CBC COMPLETE BLOOD COUNTon 0 - Erythrocyte distribution width (RBC) [Ratio] 15.0 % Normal 11.5-15.0 [facility] Comment on above: Order Comment: No: D o not add to previous drawNurse draw Performed By: #### 5 0608 ####[facility]3000 [facility].[address] Hematocrit (Bld) [Volume fraction] 32.0 % Low 39.0-50.0 [facility] Comment on above: Order Comment: No: D o not add to previous drawNurse draw Performed By: #### 5 0608 ####[facility]3000 [facility].[address] Hemoglobin (Bld) [Mass/Vol] 10.6 g/dL Low 13.0-17.0 [facility] Comment on above: Order Comment: No: D o not add to previous drawNurse draw Performed By: #### 5 0608 ####[facility] [place] [address], [facility] MCH (RBC) [Entitic mass] 30.5 pg Normal 27.0-33.0 [facility] Comment on above: Order Comment: No: D o not add to previous drawNurse draw Performed By: #### 5 0608 ####[facility] MCHC (RBC) [Mass/Vol] 33.1 g/dL Normal 32.0-35.0 [facility] Comment on above: Order Comment: No: D o not add to previous drawNurse draw Performed By: #### 5 0608 ####[facility] [facility].[address] MCV (RBC) [Entitic vol] 92.2 fL Normal 82.0-98.0 [facility] Comment on above: Order Comment: No: D o not add to previous drawNurse draw Performed By: #### 5 0608 ####[facility] [facility].[address] Nucleated RBC/100 WBC (Bld) [Ratio] 0 % Normal 0-0 [facility] Comment on above: Order Comment: No: D o not add to previous drawNurse draw Performed By: #### 5 0608 ####[facility] [facility] [place] [address], [facility] PLAT CNT 182 10*3/uL Normal 150-400 [facility] Comment on above: Order Comment: No: D o not add to previous drawNurse draw Performed By: #### 5 0608 ####[facility] [facility] [place] [address], [facility] RBC (Bld) [#/Vol] 3.47 10*6/uL Low 4.20-5.70 [facility] Comment on above: Order Comment: No: D o not add to previous drawNurse draw Performed By: #### 5 0608 ####[facility] [place] [address].[place] [address], [facility] WBC (Bld) [#/Vol] 9.87 10*3/uL Normal 4.00-10.60 [facility] Comment on above: Order Comment: No: D o not add to previous drawNurse draw Performed By: #### 5 0608 ####[facility] [place] [address], [place] MAGNESIUM BLOODon 04-11-2021 Magnesium [Mass/Vol] 2.1 mg/dL Normal 1.9-2.7 [facility] Comment on above: Order Comment: No: D o not add to previous draw Performed By: #### 4 1000, 31942, 92501 ####[facility] [facility] [place] [address], [place] PHOSPHORUS BLOODon Phosphate [Mass/Vol] 3.7 mg/dL Normal 2.5-5.0 [facility] Comment on above: Order Comment: No: D o not add to previous draw Performed By: #### 4 1000, 82409, 18229 ####[facility] [place] [address], [place] POC GLUCOSE LABon 04-11-2021 Glucose [Mass/Vol] 137 mg/dL High 70-100 [facility] Comment on above: Performed By: #### 8 5499 ####[facility] [place] [address], [place] Glucose [Mass/Vol] 182 mg/dL High 70-100 [facility] Comment on above: Performed By: #### 8 5499 ####[facility] [place] [address], [place] Glucose [Mass/Vol] 171 mg/dL High 70-100 [facility] Comment on above: Performed By: #### 8 5499 ####[facility] [place] [address], [place] Glucose [Mass/Vol] 142 mg/dL High 70-100 [facility] Comment on above: Performed By: #### 8 5499 ####[facility] [place] [address], [facility] PORTABLE CHEST 1 VIEWon 03-24 PORTABLE CHEST 1 VIEW Normal [facility] Comment on above: Order Comment: Evalu ate for Pneumothorax PORTABLE CHEST 1 VIEW Normal [facility] Comment on above: Order Comment: evalu ate for Pneumothorax BASIC METABOLIC PANELon 03-24 Calcium [Mass/Vol] 8.2 mg/dL Low 8.6-10.3 [facility] Comment on above: Order Comment: No: D o not add to previous drawNurse draw rn barbara Performed By: #### 4 1000, 36331, 54876 ####[facility] [place] [address], [facility] Chloride [Moles/Vol] 104 mmol/L Normal 98-107 [facility] Comment on above: Order Comment: No: D o not add to previous drawNurse draw rn barbara Performed By: #### 4 999, 87186, 11163 ####[facility] [place] [address], [facility] CO2 [Moles/Vol] 27 mmol/L Normal 21-31 [facility] Comment on above: Order Comment: No: D o not add to previous drawNurse draw rn barbara Performed By: #### 4 1000, 25176, 74072 ####[facility] [place] [address], [facility] Creatinine [Mass/Vol] 0.76 mg/dL Normal 0.70-1.30 [facility] Comment on above: Order Comment: No: D o not add to previous drawNurse draw rn barbara Performed By: #### 4 1000, 76511, 44052 ####[facility] [place] [address], [facility] GFR/1.73 sq M.predicted among blacks MDRD (S/P/Bld) [Vol rate/Area] mL/min/{1.73_m2} Normal >60 [facility] Comment on above: Order Comment: No: D o not add to previous drawNurse draw rn barbara Result Comment: Calc ulation may not be valid for patients over 70 years Performed By: #### 4 1000, 53532, 59431 ####[facility] [place] [address], [facility] GFR/1.73 sq M.predicted among non-blacks MDRD (S/P/Bld) [Vol rate/Area] mL/min/{1.73_m2} Normal >60 [facility] Comment on above: Order Comment: No: D o not add to previous drawNurse draw rn barbara Result Comment: Calc ulation may not be valid for patients over 70 years Performed By: #### 4 1000, 43743, 10598 ####[facility] [place] [address], [facility] Glucose [Mass/Vol] 109 mg/dL High 70-100 [facility] Comment on above: Order Comment: No: D o not add to previous drawNurse draw rn barbara Performed By: #### 4 999, 99119, 34951 ####[facility] [place] [address], [facility] Potassium [Moles/Vol] 4.0 mmol/L Normal 3.5-5.1 [facility] Comment on above: Order Comment: No: D o not add to previous drawNurse draw rn barbara Performed By: #### 4 999, 59280, 33710 ####[facility] [place] [address], [place] Sodium [Moles/Vol] 135 mmol/L Low 136-145 [facility] Comment on above: Order Comment: No: D o not add to previous drawNurse draw rn barbara Performed By: #### 4 1000, 31027, 05420 ####[facility] [place] [address], [place] Urea nitrogen [Mass/Vol] 15 mg/dL Normal 7-25 [facility] Comment on above: Order Comment: No: D o not add to previous drawNurse draw rn barbara Performed By: #### 4 1000, 34077, 58259 ####[facility] CBC COMPLETE BLOOD COUNTon 0 - Erythrocyte distribution width (RBC) [Ratio] 14.7 % Normal 11.5-15.0 [facility] Comment on above: Order Comment: No: D o not add to previous drawNurse draw rn barbara Performed By: #### 5 0608 ####[facility] Hematocrit (Bld) [Volume fraction] 32.7 % Low 39.0-50.0 [facility] Comment on above: Order Comment: No: D o not add to previous drawNurse draw rn barbara Performed By: #### 5 0608 ####[facility] Hemoglobin (Bld) [Mass/Vol] 10.7 g/dL Low 13.0-17.0 [facility] Comment on above: Order Comment: No: D o not add to previous drawNurse draw rn barbara Performed By: #### 5 0608 ####[facility] MCH (RBC) [Entitic mass] 30.1 pg Normal 27.0-33.0 [facility] Comment on above: Order Comment: No: D o not add to previous drawNurse draw rn barbara Performed By: #### 5 0608 ####[facility] MCHC (RBC) [Mass/Vol] 32.7 g/dL Normal 32.0-35.0 [facility] Comment on above: Order Comment: No: D o not add to previous drawNurse draw rn barbara Performed By: #### 5 0608 ####[facility] [facility].[address] MCV (RBC) [Entitic vol] 92.1 fL Normal 82.0-98.0 [facility] Comment on above: Order Comment: No: D o not add to previous drawNurse draw rn barbara Performed By: #### 5 0608 ####[facility] [facility].[address] Nucleated RBC/100 WBC (Bld) [Ratio] 0 % Normal 0-0 [facility] Comment on above: Order Comment: No: D o not add to previous drawNurse draw rn barbara Performed By: #### 5 0608 ####[facility] [facility].[address] PLAT CNT 176 10*3/uL Normal 150-400 [facility] Comment on above: Order Comment: No: D o not add to previous drawNurse draw rn barbara Performed By: #### 5 0608 ####[facility] [facility].[address] RBC (Bld) [#/Vol] 3.55 10*6/uL Low 4.20-5.70 [facility] Comment on above: Order Comment: No: D o not add to previous drawNurse draw rn barbara Performed By: #### 5 0608 ####[facility] [facility].[address] WBC (Bld) [#/Vol] 12.43 10*3/uL High 4.00-10.60 [facility] Comment on above: Order Comment: No: D o not add to previous drawNurse draw rn barbara Performed By: #### 5 0608 ####[facility] [facility].[address] COOXIMETRYon 04-10-2021 COHB 1 % Normal [facility] Comment on above: Performed By: #### 7 0207 ####[facility] [place] [address], [facility] METHB 0 % Normal [facility] Comment on above: Performed By: #### 7 0207 ####[facility] [place] [address], [facility] Oxygen saturation in Blood 68.2 % Normal 65.0-75.0 [facility] Comment on above: Performed By: #### 7 0207 ####[facility] [place] [address], [facility] THB 13.1 g/dL Normal [facility] Comment on above: Performed By: #### 7 0207 ####[facility] [place] [address], [facility] LACTATE BLOODon 04-10-2021 Lactate [Moles/Vol] 0.7 mmol/L Normal .5-2.2 [facility] Comment on above: Order Comment: No: D o not add to previous drawNurse draw sumit [place] Performed By: #### 1 0054 ####[facility] [facility] [place] [address], [facility] MAGNESIUM BLOODon 04-10-2021 Magnesium [Mass/Vol] 2.3 mg/dL Normal 1.9-2.7 [facility] Comment on above: Order Comment: No: D o not add to previous drawNurse draw sumit [place] Performed By: #### 4 999, 59234, 48453 ####[facility] [place] [address], [facility] PHOSPHORUS BLOODon Phosphate [Mass/Vol] 3.9 mg/dL Normal 2.5-5.0 [facility] Comment on above: Order Comment: No: D o not add to previous drawNurse draw sumit [place] Performed By: #### 4 999, 37878, 72734 ####[facility] [place] [address], [facility] POC GLUCOSE LABon 04-10-2021 Glucose [Mass/Vol] 168 mg/dL High 70-100 [facility] Comment on above: Performed By: #### 8 5499 ####[facility] [place] [address], [place] Glucose [Mass/Vol] 131 mg/dL High 70-100 [facility] Comment on above: Performed By: #### 8 5499 ####[facility] [place] [address], [place] Glucose [Mass/Vol] 123 mg/dL High 70-100 [facility] Comment on above: Performed By: #### 8 5499 ####[facility] [place] [address], [place] Glucose [Mass/Vol] 170 mg/dL High 70-100 [facility] Comment on above: Performed By: #### 8 5499 ####[facility] [place] [address], [place] Glucose [Mass/Vol] 131 mg/dL High 70-100 [facility] Comment on above: Performed By: #### 8 5499 ####[facility] [place] [address], [place] Glucose [Mass/Vol] 123 mg/dL High 70-100 [facility] Comment on above: Performed By: #### 8 5499 ####[facility] [place] [address], [place] Glucose [Mass/Vol] 92 mg/dL Normal 70-100 [facility] Comment on above: Performed By: #### 8 5499 ####[facility] [place] [address], [place] Glucose [Mass/Vol] 99 mg/dL Normal 70-100 [facility] Comment on above: Performed By: #### 8 5499 ####[facility] [place] [address], [place] Glucose [Mass/Vol] 124 mg/dL High 70-100 [facility] Comment on above: Performed By: #### 8 5499 ####[facility] [place] [address], [place] Glucose [Mass/Vol] 141 mg/dL High 70-100 [facility] Comment on above: Performed By: #### 8 5499 ####[facility] [place] [address], [place] Glucose [Mass/Vol] 143 mg/dL High 70-100 [facility] Comment on above: Performed By: #### 8 5499 ####[facility] [facility] [place] [address], [facility] PORTABLE CHEST 1 VIEWon 03-24 PORTABLE CHEST 1 VIEW Normal [facility] Comment on above: Order Comment: Check Chest Tube Position, s/p mediasteinal tube removal PORTABLE CHEST 1 VIEW Normal [facility] Comment on above: Order Comment: evalu ate for Atelectasis APTTon 04-09-2021 aPTT Coag (Bld) [Time] 28.6 s Normal 25.0-35.0 Th e [facility] Comment on above: Order [...] THIS PURPOSE. Performed By: #### 5 7307, 19603 ####[facility] [place] [address], [place] ARTERIAL BLOOD GAS WITH ICAo n 04-09-2021 [employer]ERY SYSTEM[employer] NC Normal [facility] Comment on above: Performed By: #### 8 4511 ####[facility] [place] [address], [place] IONIZED CALCIUM 1.15 mmol/L Normal 1.13-1.32 [facility] Comment on above: Performed By: #### 8 4511 ####[facility] [place] [address], [place] LPM 4.0 LPM Normal [facility] Comment on above: Performed By: #### 8 4511 ####[facility] [place] [address], [place] Oxygen (Bld) [Partial pressure] 63 mm[Hg] Low 83-108 [facility] Comment on above: Performed By: #### 8 4511 ####[facility] [place] [address], [place] Oxygen saturation in Blood 94.2 % Normal 94.0-97.0 [facility] Comment on above: Performed By: #### 8 4511 ####[facility] [place] [address], [place] BASE EXCESS 3 mmol/L Normal -2-3 [facility] Comment on above: Performed By: #### 8 4511 ####[facility] [place] [address], [place] [employer] MV Normal [facility] Comment on above: Performed By: #### 8 4511 ####[facility] [place] [address], [place] FIO2 40 % Normal [facility] Comment on above: Performed By: #### 8 4511 ####[facility] [place] [address], [place] HCO3 (Bld) [Moles/Vol] 27 mmol/L Normal 21-28 Th e [facility] Comment on above: Performed By: #### 8 4511 ####[facility] [place] [address], [facility] IONIZED CALCIUM 1.17 mmol/L Normal 1.13-1.32 [facility] Comment on above: Performed By: #### 8 4511 ####[facility] [place] [address], [place] MIN VOLUME 14.0 Normal [facility] Comment on above: Performed By: #### 8 4511 ####[facility] [place] [address], [place] MODALITY SPONT Normal [facility] Comment on above: Performed By: #### 8 4511 ####[facility] [place] [address], [place] Oxygen (Bld) [Partial pressure] 79 mm[Hg] Low 83-108 [facility] Comment on above: Performed By: #### 8 4511 ####[facility] [place] [address], [place] Oxygen saturation in Blood 96.5 % Normal 94.0-97.0 [facility] Comment on above: Performed By: #### 8 4511 ####[facility] [place] [address], [place] PCO2 37 mmHg Normal 35-45 [facility] Comment on above: Performed By: #### 8 4511 ####[facility] [place] [address], [place] PEEP 5.0 CMH20 Normal [facility] Comment on above: Performed By: #### 8 4511 ####[facility] [place] [address], [place] PF RATIO 198 mmHg Normal [facility] Comment on above: Performed By: #### 8 4511 ####[facility] [place] [address], [place] pH (Bld) 7.47 [pH] High 7.35-7.45 [facility] Comment on above: Performed By: #### 8 4511 ####[facility] PRESSURE SUPPORT 5 Normal [facility] Comment on above: Performed By: #### 8 4511 ####[facility] BASE EXCESS 2 mmol/L Normal -2-3 [facility] Comment on above: Performed By: #### 8 4511 ####[facility] DELIVERY SYSTEMS MV Normal [facility] Comment on above: Performed By: #### 8 4511 ####[facility] [facility].[address] FIO2 50 % Normal [facility] Comment on above: Performed By: #### 8 4511 ####[facility] [facility].[address] HCO3 (Bld) [Moles/Vol] 26 mmol/L Normal 21-28 Th e [facility] Comment on above: Performed By: #### 8 4511 ####[facility] [facility].[address] IONIZED CALCIUM 1.17 mmol/L Normal 1.13-1.32 [facility] Comment on above: Performed By: #### 8 4511 ####[facility] [place] [address], [facility] MIN VOLUME 13.3 Normal [facility] Comment on above: Performed By: #### 8 4511 ####[facility] [place] [address], [facility] MODALITY SIMV Normal [facility] Comment on above: Performed By: #### 8 4511 ####[facility] [place] [address], [facility] Oxygen (Bld) [Partial pressure] 79 mm[Hg] Low 83-108 [facility] Comment on above: Performed By: #### 8 4511 ####[facility] [place] [address], [place] Oxygen saturation in Blood 96.8 % Normal 94.0-97.0 [facility] Comment on above: Performed By: #### 8 4511 ####[facility] [place] [address], [place] PCO2 36 mmHg Normal 35-45 [facility] Comment on above: Performed By: #### 8 4511 ####[facility] [place] [address], [place] PEEP 8.0 CMH20 Normal [facility] Comment on above: Performed By: #### 8 4511 ####[facility] [place] [address], [place] PF RATIO 158 mmHg Normal [facility] Comment on above: Performed By: #### 8 4511 ####[facility] [place] [address], [place] pH (Bld) 7.46 [pH] High 7.35-7.45 [facility] Comment on above: Performed By: #### 8 4511 ####[facility] [place] [address], [place] PRESSURE SUPPORT 10 Normal [facility] Comment on above: Performed By: #### 8 4511 ####[facility] [place] [address], [place] Respiratory rate 18 /min Normal [facility] Comment on above: Performed By: #### 8 4511 ####[facility], [place] [address] [place] [address] TIDAL VOLUME (VT) CC 700 Normal [facility] Comment on above: Performed By: #### 8 4511 ####[facility] [facility] [place] [address], [facility] BASE EXCESS -4 mmol/L Low -2-3 [facility] Comment on above: Performed By: #### 8 4511 ####[facility] [facility] [place] [address] [place] [address] DELIVERY SYSTEMS MV Normal [facility] Comment on above: Performed By: #### 8 4511 ####[facility] [facility] [place] [address], [facility] FIO2 80 % Normal [facility] Comment on above: Performed By: #### 8 4511 ####[facility] [facility], [place] [id number] [place] [address] HCO3 (Bld) [Moles/Vol] 20 mmol/L Low 21- e [facility] Comment on above: Performed By: #### 8 4511 ####[facility] [facility] [place] [address], [facility] IONIZED CALCIUM 1.14 mmol/L Normal 1.13-1.32 [facility] Comment on above: Performed By: #### 8 4511 ####[facility] [facility] [place] [address], [facility] MIN VOLUME 13.5 Normal [facility] Comment on above: Performed By: #### 8 4511 ####[facility] [facility] [place] [address], [facility] MODALITY SIMV Normal [facility] Comment on above: Performed By: #### 8 4511 ####[facility] [place] [address], [place] Oxygen (Bld) [Partial pressure] 121 mm[Hg] Critically high 83-108 [facility] Comment on above: Performed By: #### 8 4511 ####[facility] [place] [address], [facility] Oxygen saturation in Blood 97.1 % High 94.0-97.0 [facility] Comment on above: Performed By: #### 8 4511 ####[facility] [place] [address], [facility] PCO2 34 mmHg Low 35-45 [facility] Comment on above: Performed By: #### 8 4511 ####[facility] [place] [address], [facility] PEEP 8.0 CMH20 Normal [facility] Comment on above: Performed By: #### 8 4511 ####[facility] [place] [address], [facility] pH (Bld) 7.38 [pH] Normal 7.35-7.45 [facility] Comment on above: Performed By: #### 8 4511 ####[facility] [facility] [place] [address], [facility] PRESSURE SUPPORT 10 Normal [facility] Comment on above: Performed By: #### 8 4511 ####[facility] [place] [address], [facility] Respiratory rate 18 /min Normal [facility] Comment on above: Performed By: #### 8 4511 ####[facility] [place] [address], [facility] TIDAL VOLUME (VT) CC 700 Normal [facility] Comment on above: Performed By: #### 8 4511 ####[facility] [place] [address], [facility] BASE EXCESS -8 mmol/L Low -2-3 [facility] Comment on above: Performed By: #### 8 4511 ####[facility] [place] [address], [facility] DELIVERY SYSTEMS MV Normal [facility] Comment on above: Performed By: #### 8 4511 ####[facility] [place] [address], [place] FIO2 80 % Normal [facility] Comment on above: Performed By: #### 8 4511 ####[facility] [place] [address], [place] HCO3 (Bld) [Moles/Vol] 18 mmol/L Low 21-28 e [facility] Comment on above: Performed By: #### 8 4511 ####[facility] [place] [address], [place] IONIZED CALCIUM 1.06 mmol/L Low 1.13-1.32 [facility] Comment on above: Performed By: #### 8 4511 ####[facility] [place] [address], [place] MIN VOLUME 16.6 Normal [facility] Comment on above: Performed By: #### 8 4511 ####[facility] [place] [address], [place] MODALITY SIMV Normal [facility] Comment on above: Performed By: #### 8 4511 ####[facility] [place] [address], [place] Oxygen (Bld) [Partial pressure] 86 mm[Hg] Normal 83-108 [facility] Comment on above: Performed By: #### 8 4511 ####[facility] [place] [address], [place] Oxygen saturation in Blood 96.6 % Normal 94.0-97.0 [facility] Comment on above: Performed By: #### 8 4511 ####[facility] [place] [address], [facility] PCO2 34 mmHg Low 35-45 [facility] Comment on above: Performed By: #### 8 4511 ####[facility] [place] [address], [place] PEEP 8.0 CMH20 Normal [facility] Comment on above: Performed By: #### 8 4511 ####[facility] [place] [address], [place] PF RATIO 108 mmHg Normal [facility] Comment on above: Performed By: #### 8 4511 ####[facility] [place] [address], [facility] pH (Bld) 7.32 [pH] Low 7.35-7.45 [facility] Comment on above: Performed By: #### 8 4511 ####[facility] [place] [address], [facility] PRESSURE SUPPORT 10 Normal [facility] Comment on above: Performed By: #### 8 4511 ####[facility] [place] [address], [facility] Respiratory rate 18 /min Normal [facility] Comment on above: Performed By: #### 8 4511 ####[facility] [place] [address], [facility] TIDAL VOLUME (VT) CC 700 Normal [facility] Comment on above: Performed By: #### 8 4511 ####[facility] [place] [address], [facility] BASIC METABOLIC PANELon 03-24 Calcium [Mass/Vol] 8.0 mg/dL Low 8.6-10.3 [facility] Comment on above: Order Comment: No: D o not add to previous draw Performed By: #### 0 0071, 53534 ####[facility] [place] [address], [facility] Chloride [Moles/Vol] 107 mmol/L Normal 98-107 [facility] Comment on above: Order Comment: No: D o not add to previous draw Performed By: #### 0 0071, 77271 ####[facility] [place] [address], [place] CO2 [Moles/Vol] 26 mmol/L Normal 21-31 [facility] Comment on above: Order Comment: No: D o not add to previous draw Performed By: #### 0 0071, 12439 ####[facility] [place] [address], [facility] Creatinine [Mass/Vol] 0.90 mg/dL Normal 0.70-1.30 [facility] Comment on above: Order Comment: No: D o not add to previous draw Performed By: #### 0 0071, 12444 ####[facility] [place] [address], [place] GFR/1.73 sq M.predicted among blacks MDRD (S/P/Bld) [Vol rate/Area] mL/min/{1.73_m2} Normal >60 [facility] Comment on above: Order Comment: No: D o not add to previous draw Result Comment: Calc ulation may not be valid for patients over 70 years Performed By: #### 0 0071, 56031 ####[facility] [place] [address], [place] GFR/1.73 sq M.predicted among non-blacks MDRD (S/P/Bld) [Vol rate/Area] mL/min/{1.73_m2} Normal >60 [facility] Comment on above: Order Comment: No: D o not add to previous draw Result Comment: Calc ulation may not be valid for patients over 70 years Performed By: #### 0 0071, 40288 ####[facility] [place] [address], [place] Glucose [Mass/Vol] 126 mg/dL High 70-100 [facility] Comment on above: Order Comment: No: D o not add to previous draw Performed By: #### 0 0071, 02687 ####[facility] [place] [address], [place] Potassium [Moles/Vol] 3.8 mmol/L Normal 3.5-5.1 [facility] Comment on above: Order Comment: No: D o not add to previous draw Performed By: #### 0 0071, 87024 ####[facility] [place] [address], [place] Sodium [Moles/Vol] 136 mmol/L Normal 136-145 [facility] Comment on above: Order Comment: No: D o not add to previous draw Performed By: #### 0 0071, 39270 ####[facility] [place] [address], [place] Urea nitrogen [Mass/Vol] 21 mg/dL Normal 7-25 [facility] Comment on above: Order Comment: No: D o not add to previous draw Performed By: #### 0 0071, 18714 ####[facility] [place] [address], [place] Calcium [Mass/Vol] 7.8 mg/dL Low 8.6-10.3 [facility] Comment on above: Order Comment: post op day 1No: Do not add to previous draw Performed By: #### 1 0, 68757 ####[facility] [place] [address], [place] Chloride [Moles/Vol] 103 mmol/L Normal 98-107 [facility] Comment on above: Order Comment: post op day 1No: Do not add to previous draw Performed By: #### 1 0, 27694 ####[facility] [place] [address], [place] CO2 [Moles/Vol] 20 mmol/L Low 21-31 [facility] Comment on above: Order Comment: post op day 1No: Do not add to previous draw Performed By: #### 1 0, 84321 ####[facility] [place] [address], [place] Creatinine [Mass/Vol] 1.25 mg/dL Normal 0.70-1.30 [facility] Comment on above: Order Comment: post op day 1No: Do not add to previous draw Performed By: #### 1 0, 37982 ####[facility] [place] [address], [facility] eGFR- non- 56 ml/min/1.73sq m Abnormal >60 [facility] Comment on above: Order Comment: post op day 1No: Do not add to previous draw Result Comment: Calc ulation may not be valid for patients over 70 years Performed By: #### 1 0, 32020 ####[facility] [place] [address], [place] GFR/1.73 sq M.predicted among blacks MDRD (S/P/Bld) [Vol rate/Area] mL/min/{1.73_m2} Normal >60 [facility] Comment on above: Order Comment: post op day 1No: Do not add to previous draw Result Comment: Calc ulation may not be valid for patients over 70 years Performed By: #### 1 0070, 77676 ####[facility] [place] [address], [place] Glucose [Mass/Vol] 331 mg/dL High 70-100 [facility] Comment on above: Order Comment: post op day 1No: Do not add to previous draw Performed By: #### 1 0070, 32481 ####[facility] [place] [address], [place] Potassium [Moles/Vol] 3.2 mmol/L Low 3.5-5.1 [facility] Comment on above: Order Comment: post op day 1No: Do not add to previous draw Performed By: #### 1 0, 10766 ####[facility] Sodium [Moles/Vol] 135 mmol/L Low 136-145 [facility] Comment on above: Order Comment: post op day 1No: Do not add to previous draw Performed By: #### 1 69, 80036 ####[facility] [facility] Urea nitrogen [Mass/Vol] 24 mg/dL Normal 7-25 [facility] Comment on above: Order Comment: post op day 1No: Do not add to previous draw Performed By: #### 1 69, 27872 ####[facility] [facility].[address] CBC COMPLETE BLOOD COUNTon 0 - Erythrocyte distribution width (RBC) [Ratio] 14.6 % Normal 11.5-15.0 [facility] Comment on above: Order Comment: post op day 1No: Do not add to previous draw Performed By: #### 5 0608 ####[facility] [facility].[address] Hematocrit (Bld) [Volume fraction] 30.5 % Low 39.0-50.0 [facility] Comment on above: Order Comment: post op day 1No: Do not add to previous draw Performed By: #### 5 0608 ####[facility] [facility] Hemoglobin (Bld) [Mass/Vol] 10.2 g/dL Low 13.0-17.0 [facility] Comment on above: Order Comment: post op day 1No: Do not add to previous draw Performed By: #### 5 0608 ####[facility] [facility].[address] MCH (RBC) [Entitic mass] 30.9 pg Normal 27.0-33.0 [facility] Comment on above: Order Comment: post op day 1No: Do not add to previous draw Performed By: #### 5 0608 ####[facility] [facility].[address] MCHC (RBC) [Mass/Vol] 33.4 g/dL Normal 32.0-35.0 [facility] Comment on above: Order Comment: post op day 1No: Do not add to previous draw Performed By: #### 5 0608 ####[facility] MCV (RBC) [Entitic vol] 92.4 fL Normal 82.0-98.0 [facility] Comment on above: Order Comment: post op day 1No: Do not add to previous draw Performed By: #### 5 0608 ####[facility] [facility].[address] Nucleated RBC/100 WBC (Bld) [Ratio] 0 % Normal 0-0 [facility] Comment on above: Order Comment: post op day 1No: Do not add to previous draw Performed By: #### 5 0608 ####[facility] [facility].[address] PLAT CNT 232 10*3/uL Normal 150-400 [facility] Comment on above: Order Comment: post op day 1No: Do not add to previous draw Performed By: #### 5 0608 ####[facility] [place] [address] RBC (Bld) [#/Vol] 3.30 10*6/uL Low 4.20-5.70 [facility] Comment on above: Order Comment: post op day 1No: Do not add to previous draw Performed By: #### 5 0608 ####[facility] [facility] [place] [address], [facility] WBC (Bld) [#/Vol] 17.37 10*3/uL High 4.00-10.60 [facility] Comment on above: Order Comment: post op day 1No: Do not add to previous draw Performed By: #### 5 0608 ####[facility] [place] [address], [facility] CBC W/DIFFon 04-09-2021 ABS IMM GRANS 0.1 10*3/uL Normal 0.0-0.2 [facility] Comment on above: Order Comment: No: D o not add to previous draw Performed By: #### 5 0103 ####[facility] [place] [address], [facility] ABS NEUTROPHILS 8.3 10*3/uL High 1.6-7.6 [facility] Comment on above: Order Comment: No: D o not add to previous draw Performed By: #### 5 0103 ####[facility] [place] [address], [facility] Basophils (Bld) [#/Vol] 0.0 10*3/uL Normal 0.0-0.2 [facility] Comment on above: Order Comment: No: D o not add to previous draw Performed By: #### 5 0103 ####[facility] [place] [address], [facility] Basophils/100 WBC (Bld) 0.1 % Normal 0.0-1.0 [facility] Comment on above: Order Comment: No: D o not add to previous draw Performed By: #### 5 0103 ####[facility] [place] [address], [facility] Eosinophils (Bld) [#/Vol] 0.0 10*3/uL Normal 0.0-0.5 [facility] Comment on above: Order Comment: No: D o not add to previous draw Performed By: #### 5 0103 ####[facility] Eosinophils/100 WBC (Bld) 0.0 % Normal 0.0-6.0 [facility] Comment on above: Order Comment: No: D o not add to previous draw Performed By: #### 5 0103 ####[facility] Erythrocyte distribution width (RBC) [Ratio] 14.4 % Normal 11.5-15.0 [facility] Comment on above: Order Comment: No: D o not add to previous draw Performed By: #### 5 0103 ####[facility] Hematocrit (Bld) [Volume fraction] 28.9 % Low 39.0-50.0 [facility] Comment on above: Order Comment: No: D o not add to previous draw Performed By: #### 5 0103 ####[facility] Hemoglobin (Bld) [Mass/Vol] 9.6 g/dL Low 13.0-17.0 [facility] Comment on above: Order Comment: No: D o not add to previous draw Performed By: #### 5 0103 ####[facility] IMMATURE GRANS 0.5 % Normal 0.0-1.0 [facility] Comment on above: Order Comment: No: D o not add to previous draw Performed By: #### 5 0103 ####[facility] [place] [address] Lymphocytes (Bld) [#/Vol] 1.3 10*3/uL Normal 1.2-4.0 [facility] Comment on above: Order Comment: No: D o not add to previous draw Performed By: #### 5 0103 ####[facility] Lymphocytes/100 WBC (Bld) 12.1 % Low 20.0-45.0 [facility] Comment on above: Order Comment: No: D o not add to previous draw Performed By: #### 5 0103 ####[facility] [place] [address], [facility] MCH (RBC) [Entitic mass] 30.6 pg Normal 27.0-33.0 [facility] Comment on above: Order Comment: No: D o not add to previous draw Performed By: #### 5 0103 ####[facility] MCHC (RBC) [Mass/Vol] 33.2 g/dL Normal 32.0-35.0 [facility] Comment on above: Order Comment: No: D o not add to previous draw Performed By: #### 5 0103 ####[facility] MCV (RBC) [Entitic vol] 92.0 fL Normal 82.0-98.0 [facility] Comment on above: Order Comment: No: D o not add to previous draw Performed By: #### 5 0103 ####[facility] [place] [address], [facility] Monocytes (Bld) [#/Vol] 1.2 10*3/uL High 0.1-1.0 [facility] Comment on above: Order Comment: No: D o not add to previous draw Performed By: #### 5 0103 ####[facility] [place] [address], [facility] MONOS 10.9 % Normal 5.0-12.0 [facility] Comment on above: Order Comment: No: D o not add to previous draw Performed By: #### 5 0103 ####[facility] [place] [address], [facility] Neutrophils/100 WBC (Bld) 76.4 % High 40.0-72.0 [facility] Comment on above: Order Comment: No: D o not add to previous draw Performed By: #### 5 0103 ####[facility] [place] [address], [facility] Nucleated RBC/100 WBC (Bld) [Ratio] 0 % Normal 0-0 [facility] Comment on above: Order Comment: No: D o not add to previous draw Performed By: #### 5 0103 ####[facility] [facility] [place] [address], [facility] PLAT CNT 175 10*3/uL Normal 150-400 [facility] Comment on above: Order Comment: No: D o not add to previous draw Performed By: #### 5 0103 ####[facility] [place] [address], [facility] RBC (Bld) [#/Vol] 3.14 10*6/uL Low 4.20-5.70 [facility] Comment on above: Order Comment: No: D o not add to previous draw Performed By: #### 5 0103 ####[facility] [place] [address], [facility] WBC (Bld) [#/Vol] 10.92 10*3/uL High 4.00-10.60 [facility] Comment on above: Order Comment: No: D o not add to previous draw Performed By: #### 5 0103 ####[facility] [id number], [facility] LACTATE BLOODon 04-09-2021 Lactate [Moles/Vol] 0.9 mmol/L Normal .5-2.2 [facility] Comment on above: Order Comment: No: D o not add to previous draw Performed By: #### 1 0054 ####[facility] [place] [address], [place] Lactate [Moles/Vol] 3.8 mmol/L High .5-2.2 [facility] Comment on above: Order Comment: No: D o not add to previous draw Result Comment: M-CR ITICAL RESULT(S) REVIEWED, CALLED TO AND READ BACK BY [employer]IVER 0855 Performed By: #### 1 0054 ####[facility] [place] [address], [place] Lactate [Moles/Vol] 7.1 mmol/L Critically high .5-2.2 [facility] Comment on above: Order Comment: post op day 1No: Do not add to previous draw Result Comment: M-MO EVIOUS CRITICAL RESULT Performed By: #### 1 0054 ####[facility] [place] [address], [place] MAGNESIUM BLOODon 04-09-2021 Magnesium [Mass/Vol] 2.3 mg/dL Normal 1.9-2.7 [facility] Comment on above: Order Comment: No: D o not add to previous draw Performed By: #### 1 0070, 58022 ####[facility] [place] [address], [place] Magnesium [Mass/Vol] 2.2 mg/dL Normal 1.9-2.7 [facility] Comment on above: Order Comment: added from prior Performed By: #### 0 0071, 44203 ####[facility] [place] [address], [place] Magnesium [Mass/Vol] 2.4 mg/dL Normal 1.9-2.7 [facility] Comment on above: Order Comment: post op day 1No: Do not add to previous draw Performed By: #### 1 0070, 43465 ####[facility] [place] [address], [place] Operative Reporton Operative Report Normal [facility] POC GLUCOSE LABon 04-09-2021 Glucose [Mass/Vol] 162 mg/dL High 70-100 [facility] Comment on above: Performed By: #### 8 5499 ####[facility] [place] [address], [place] Glucose [Mass/Vol] 128 mg/dL High 70-100 [facility] Comment on above: Performed By: #### 8 5499 ####[facility] [place] [address], [place] Glucose [Mass/Vol] 117 mg/dL High 70-100 [facility] Comment on above: Performed By: #### 8 5499 ####[facility] [place] [address], [place] Glucose [Mass/Vol] 110 mg/dL High 70-100 [facility] Comment on above: Performed By: #### 8 5499 ####[facility] [place] [address], [place] Glucose [Mass/Vol] 65 mg/dL Low 70-100 [facility] Comment on above: Performed By: #### 8 5499 ####[facility] [place] [address], [place] Glucose [Mass/Vol] 86 mg/dL Normal 70-100 [facility] Comment on above: Performed By: #### 8 5499 ####[facility] [place] [address], [place] Glucose [Mass/Vol] 127 mg/dL High 70-100 [facility] Comment on above: Performed By: #### 8 5499 ####[facility] [place] [address], [place] Glucose [Mass/Vol] 230 mg/dL High 70-100 [facility] Comment on above: Performed By: #### 8 5499 ####[facility] [place] [address], [place] Glucose [Mass/Vol] 244 mg/dL High 70-100 [facility] Comment on above: Performed By: #### 8 5499 ####[facility] [place] [address], [place] Glucose [Mass/Vol] 283 mg/dL High 70-100 [facility] Comment on above: Performed By: #### 8 5499 ####[facility] [place] [address], [place] Glucose [Mass/Vol] 326 mg/dL High 70-100 [facility] Comment on above: Performed By: #### 8 5499 ####[facility] [place] [address], [place] Glucose [Mass/Vol] 347 mg/dL High 70-100 [facility] Comment on above: Performed By: #### 8 5499 ####[facility] [place] [address], [place] Glucose [Mass/Vol] 258 mg/dL High 70-100 [facility] Comment on above: Performed By: #### 8 5499 ####[facility] [place] [address], [place] Glucose [Mass/Vol] 334 mg/dL High 70-100 [facility] Comment on above: Performed By: #### 8 5499 ####[facility] [place] [address], [place] Glucose [Mass/Vol] 338 mg/dL High 70-100 [facility] Comment on above: Performed By: #### 8 5499 ####[facility] [place] [address], [facility] Glucose [Mass/Vol] 321 mg/dL High 70-100 [facility] Comment on above: Performed By: #### 8 5499 ####[facility] [place] [address], [facility] Glucose [Mass/Vol] 302 mg/dL High 70-100 [facility] Comment on above: Performed By: #### 8 5499 ####[facility] [facility] [place] [address], [facility] PORTABLE CHEST 1 VIEWon 03-24 PORTABLE CHEST 1 VIEW Normal [facility] Comment on above: Order Comment: Check Chest Tube Position POTASSIUM BLOODon 04-09-2021 Potassium [Moles/Vol] 4.6 mmol/L Normal 3.5-5.1 [facility] Comment on above: Order Comment: No: D o not add to previous draw Performed By: #### 1 0070, 12793 ####[facility] [facility] [place] [address], [facility] PROTHROMBIN TIMEon INR Coag (PPP) [Relative time] 1.22 {INR} High 0.91-1.16 [facility] Comment on above: [...] OF ACTION, CLINICALEFFECTIVENESS, AND OPTIMAL THERAPEUTIC RANGE. [id number]. Performed By: #### 5 7307, 17276 ####[facility] [place] [address], [facility] PT Coag (PPP) [Time] 15.4 s High 12.3-14.8 [facility] Comment on above: Order Comment: post op day 1No: Do not add to previous draw Result Comment: ALL RESULTS MUST BE INTERPRETED WITH RESPECT TO BLOOD DRAWING ARTIFACTOR DILUTION ERROR OF ANTICOAGULANT AT THE TIME OF SAMPLING. Performed By: #### 5 7307, 51585 ####[facility] [place] [address], [facility] ACTIVATED CLOTTING TIMEon ACTIVATED CLOTTING TIME 121 sec Normal 82-152 [facility] Comment on above: Performed By: #### 3 0739 ####[facility] [place] [address], [facility] ACTIVATED CLOTTING TIME 305 sec High 82-152 [facility] Comment on above: Performed By: #### 3 0739 ####[facility] [place] [address], [place] ACTIVATED CLOTTING TIME 286 sec High 82-152 [facility] Comment on above: Performed By: #### 3 0739 ####[facility] [place] [address], [place] ACTIVATED CLOTTING TIME 279 sec High 82-152 [facility] Comment on above: Performed By: #### 3 0739 ####[facility] [place] [address], [place] ACTIVATED CLOTTING TIME 325 sec High 82-152 [facility] Comment on above: Performed By: #### 3 0739 ####[facility] [place] [address], [facility] ACTIVATED CLOTTING TIME 184 sec High 82-152 [facility] Comment on above: Performed By: #### 3 0739 ####[facility] [place] [address], [facility] ACTIVATED CLOTTING TIME 121 sec Normal 82-152 [facility] Comment on above: Performed By: #### 3 0739 ####[facility] [place] [address], [facility] APTTon 04-08-2021 aPTT Coag (Bld) [Time] 30.4 s Normal 25.0-35.0 [facility] Comment on above: Order [...] THIS PURPOSE. Performed By: #### 5 6101, 50603 ####[facility] [place] [address], [facility] aPTT Coag (Bld) [Time] 30.6 s Normal 25.0-35.0 [facility] Comment on above: Result Comment: ALL [...] THIS PURPOSE. Performed By: #### 5 7307, 44386, 13556 ####[facility] [place] [address], [facility] ARTERIAL BLOOD GAS WITH ICAo n 04-08-2021 BASE EXCESS -4 mmol/L Low -2-3 [facility] Comment on above: Order Comment: on ar rival to CVU Performed By: #### 8 4511 ####[facility] [employer] MV Normal [facility] Comment on above: Order Comment: on ar rival to CVU Performed By: #### 8 4511 ####[facility] [place] [address], [facility] FIO2 70 % Normal [facility] Comment on above: Order Comment: on ar rival to CVU Performed By: #### 8 4511 ####[facility] [place] [address], [facility] HCO3 (Bld) [Moles/Vol] 21 mmol/L Normal 21-28 [facility] Comment on above: Order Comment: on ar rival to CVU Performed By: #### 8 4511 ####[facility] [place] [address], [facility] IONIZED CALCIUM 1.09 mmol/L Low 1.13-1.32 [facility] Comment on above: Order Comment: on ar rival to CVU Performed By: #### 8 4511 ####[facility] [place] [address], [facility] MIN VOLUME 14.2 Normal [facility] Comment on above: Order Comment: on ar rival to CVU Result Comment: Resu lt changed by DOTTY on 04/08/2021 19:16. The previous value was16.0. Performed By: #### 8 4511 ####[facility] [place] [address], [facility] MODALITY SIMV Normal [facility] Comment on above: Order Comment: on ar rival to CVU Performed By: #### 8 4511 ####[facility] [place] [address], [place] Oxygen (Bld) [Partial pressure] 69 mm[Hg] Low 83-108 [facility] Comment on above: Order Comment: on ar rival to CVU Performed By: #### 8 4511 ####[facility] [place] [address], [place] Oxygen saturation in Blood 93.8 % Low 94.0-97.0 [facility] Comment on above: Order Comment: on ar rival to CVU Performed By: #### 8 4511 ####[facility] [place] [address], [place] PCO2 36 mmHg Normal 35-45 [facility] Comment on above: Order Comment: on ar rival to CVU Performed By: #### 8 4511 ####[facility] [place] [address], [place] PEEP 8.0 CMH20 Normal [facility] Comment on above: Order Comment: on ar rival to CVU Performed By: #### 8 4511 ####[facility] [place] [address], [place] PF RATIO 99 mmHg Normal [facility] Comment on above: Order Comment: on ar rival to CVU Performed By: #### 8 4511 ####[facility] [place] [address], [place] pH (Bld) 7.37 [pH] Normal 7.35-7.45 [facility] Comment on above: Order Comment: on ar rival to CVU Performed By: #### 8 4511 ####[facility] [place] [address], [place] PRESSURE SUPPORT 10 Normal [facility] Comment on above: Order Comment: on ar rival to CVU Performed By: #### 8 4511 ####[facility] [place] [address], [facility] Respiratory rate 16 /min Normal [facility] Comment on above: Order Comment: on ar rival to CVU Performed By: #### 8 4511 ####[facility] [place] [address], [facility] TIDAL VOLUME (VT) CC 700 Normal [facility] Comment on above: Order Comment: on ar rival to CVU Performed By: #### 8 4511 ####[facility] [place] [address], [facility] BASE EXCESS -4 mmol/L Low -2-3 [facility] Comment on above: Performed By: #### 8 4511 ####[facility] [place] [address], [facility] [employer] VENT Normal [facility] Comment on above: Performed By: #### 8 4511 ####[facility] [place] [address], [facility] FIO2 70 % Normal [facility] Comment on above: Performed By: #### 8 4511 ####[facility] [place] [address], [facility] HCO3 (Bld) [Moles/Vol] 23 mmol/L Normal 21-28 [facility] Comment on above: Performed By: #### 8 4511 ####[facility] [place] [address], [facility] IONIZED CALCIUM 1.14 mmol/L Normal 1.13-1.32 [facility] Comment on above: Performed By: #### 8 4511 ####[facility] [place] [address], [place] MIN VOLUME 9.0 Normal [facility] Comment on above: Performed By: #### 8 4511 ####[facility] [place] [address], [facility] MODALITY SIMV Normal [facility] Comment on above: Performed By: #### 8 4511 ####[facility] [place] [address], [facility] Oxygen (Bld) [Partial pressure] 70 mm[Hg] Low 83-108 [facility] Comment on above: Performed By: #### 8 4511 ####[facility] [place] [address], [facility] Oxygen saturation in Blood 92.5 % Low 94.0-97.0 [facility] Comment on above: Performed By: #### 8 4511 ####[facility] [place] [address], [facility] PCO2 48 mmHg High 35-45 [facility] Comment on above: Performed By: #### 8 4511 ####[facility] [place] [address], [facility] PEEP 8.0 CMH20 Normal [facility] Comment on above: Performed By: #### 8 4511 ####[facility] [place] [address], [facility] PF RATIO 100 mmHg Normal [facility] Comment on above: Performed By: #### 8 4511 ####[facility] [place] [address], [facility] pH (Bld) 7.28 [pH] Low 7.35-7.45 [facility] Comment on above: Performed By: #### 8 4511 ####[facility] [place] [address], [facility] PRESSURE SUPPORT 10 Normal [facility] Comment on above: Performed By: #### 8 4511 ####[facility] [place] [address], [facility] Respiratory rate 14 /min Normal [facility] Comment on above: Performed By: #### 8 4511 ####[facility] [place] [address], [facility] TIDAL VOLUME (VT) CC 550 Normal [facility] Comment on above: Performed By: #### 8 4511 ####[facility] [place] [address], [facility] BASIC METABOLIC PANELon 03-24 Calcium [Mass/Vol] 7.7 mg/dL Low 8.6-10.3 [facility] Comment on above: Order Comment: No: D o not add to previous draw Performed By: #### 1 0070, 00484, 13601 ####[facility] [place] [address], [facility] Chloride [Moles/Vol] 103 mmol/L Normal 98-107 [facility] Comment on above: Order Comment: No: D o not add to previous draw Performed By: #### 1 0070, 36878, 50259 ####[facility] [place] [address], [facility] CO2 [Moles/Vol] 21 mmol/L Normal 21-31 [facility] Comment on above: Order Comment: No: D o not add to previous draw Performed By: #### 1 0070, 70256, 52840 ####[facility] [place] [address], [facility] Creatinine [Mass/Vol] 1.15 mg/dL Normal 0.70-1.30 [facility] Comment on above: Order Comment: No: D o not add to previous draw Performed By: #### 1 0070, 55044, 11406 ####[facility] [place] [address], [facility] GFR/1.73 sq M.predicted among blacks MDRD (S/P/Bld) [Vol rate/Area] mL/min/{1.73_m2} Normal >60 [facility] Comment on above: Order Comment: No: D o not add to previous draw Result Comment: Calc ulation may not be valid for patients over 70 years Performed By: #### 1 0070, 89674, 62035 ####[facility] [place] [address], [facility] GFR/1.73 sq M.predicted among non-blacks MDRD (S/P/Bld) [Vol rate/Area] mL/min/{1.73_m2} Normal >60 [facility] Comment on above: Order Comment: No: D o not add to previous draw Result Comment: Calc ulation may not be valid for patients over 70 years Performed By: #### 1 0070, 30017, 50084 ####[facility] [place] [address], [facility] Glucose [Mass/Vol] 224 mg/dL High 70-100 [facility] Comment on above: Order Comment: No: D o not add to previous draw Performed By: #### 1 0070, 84512, 53523 ####[facility] [place] [address], [facility] Potassium [Moles/Vol] 3.9 mmol/L Normal 3.5-5.1 [facility] Comment on above: Order Comment: No: D o not add to previous draw Performed By: #### 1 0070, 11065, 27526 ####[facility] [place] [address], [place] Sodium [Moles/Vol] 134 mmol/L Low 136-145 [facility] Comment on above: Order Comment: No: D o not add to previous draw Performed By: #### 1 0070, 39567, 43331 ####[facility] [place] [address], [place] Urea nitrogen [Mass/Vol] 22 mg/dL Normal 7-25 [facility] Comment on above: Order Comment: No: D o not add to previous draw Performed By: #### 1 0070, 48173, 62427 ####[facility] [place] [address], [facility] Calcium [Mass/Vol] 7.7 mg/dL Low 8.6-10.3 [facility] Comment on above: Performed By: #### 1 0070, 69228, 64797 ####[facility] [place] [address], [place] Chloride [Moles/Vol] 105 mmol/L Normal 98-107 [facility] Comment on above: Performed By: #### 1 0070, 39864, 91894 ####[facility] [id number], [place] CO2 [Moles/Vol] 24 mmol/L Normal 21-31 [facility] Comment on above: Performed By: #### 1 0, 18966, 95130 ####[facility] [place] [address], [place] Creatinine [Mass/Vol] 0.81 mg/dL Normal 0.70-1.30 [facility] Comment on above: Performed By: #### 1 0, 34538, 84675 ####[facility] [place] [place] [address], [place] GFR/1.73 sq M.predicted among blacks MDRD (S/P/Bld) [Vol rate/Area] mL/min/{1.73_m2} Normal >60 [facility] Comment on above: Result Comment: Calc ulation may not be valid for patients over 70 years Performed By: #### 1 0070, 12292, 00645 ####[facility] [id number], [place] GFR/1.73 sq M.predicted among non-blacks MDRD (S/P/Bld) [Vol rate/Area] mL/min/{1.73_m2} Normal >60 [facility] Comment on above: Result Comment: Calc ulation may not be valid for patients over 70 years Performed By: #### 1 0070, 66948, 70949 ####[facility] [place] [address], [place] Glucose [Mass/Vol] 189 mg/dL High 70-100 [facility] Comment on above: Performed By: #### 1 0070, 29624, 14674 ####[facility] [place] [address], [place] Potassium [Moles/Vol] 4.3 mmol/L Normal 3.5-5.1 [facility] Comment on above: Performed By: #### 1 0070, 59594, 79067 ####[facility] [place] [address], [place] Sodium [Moles/Vol] 133 mmol/L Low 136-145 [facility] Comment on above: Performed By: #### 1 0070, 65542, 58565 ####[facility] [place] [address], [place] Urea nitrogen [Mass/Vol] 20 mg/dL Normal 7-25 [facility] Comment on above: Performed By: #### 1 0070, 38190, 60619 ####[facility] [place] [address], [place] Calcium [Mass/Vol] 8.7 mg/dL Normal 8.6-10.3 [facility] Comment on above: Order Comment: No: D o not add to previous draw Performed By: #### 0 0071, 36395, 19708 ####[facility] [place] [address], [place] Chloride [Moles/Vol] 103 mmol/L Normal 98-107 [facility] Comment on above: Order Comment: No: D o not add to previous draw Performed By: #### 0 0071, 08198, 32759 ####[facility] [place] [address], [facility] CO2 [Moles/Vol] 26 mmol/L Normal 21-31 [facility] Comment on above: Order Comment: No: D o not add to previous draw Performed By: #### 0 0071, 01064, 50685 ####[facility] [place] [address], [facility] Creatinine [Mass/Vol] 0.74 mg/dL Normal 0.70-1.30 [facility] Comment on above: Order Comment: No: D o not add to previous draw Performed By: #### 0 0071, 40876, 26070 ####[facility] [place] [address], [facility] GFR/1.73 sq M.predicted among blacks MDRD (S/P/Bld) [Vol rate/Area] mL/min/{1.73_m2} Normal >60 [facility] Comment on above: Order Comment: No: D o not add to previous draw Result Comment: Calc ulation may not be valid for patients over 70 years Performed By: #### 0 0071, 02925, 37397 ####[facility] [place] [address], [facility] GFR/1.73 sq M.predicted among non-blacks MDRD (S/P/Bld) [Vol rate/Area] mL/min/{1.73_m2} Normal >60 [facility] Comment on above: Order Comment: No: D o not add to previous draw Result Comment: Calc ulation may not be valid for patients over 70 years Performed By: #### 0 0071, 33678, 81438 ####[facility] [place] [address], [place] Glucose [Mass/Vol] 107 mg/dL High 70-100 [facility] Comment on above: Order Comment: No: D o not add to previous draw Performed By: #### 0 0071, 75227, 51548 ####[facility] [place] [address], [facility] Potassium [Moles/Vol] 4.1 mmol/L Normal 3.5-5.1 [facility] Comment on above: Order Comment: No: D o not add to previous draw Performed By: #### 0 0071, 77300, 22756 ####[facility] [place] [address], [facility] Sodium [Moles/Vol] 133 mmol/L Low 136-145 [facility] Comment on above: Order Comment: No: D o not add to previous draw Performed By: #### 0 0071, 83843, 67808 ####[facility] [place] [address], [facility] Urea nitrogen [Mass/Vol] 19 mg/dL Normal 7-25 [facility] Comment on above: Order Comment: No: D o not add to previous draw Performed By: #### 0 0071, 32106, 21668 ####[facility] [facility] CBC COMPLETE BLOOD COUNTon 0 - Erythrocyte distribution width (RBC) [Ratio] 14.4 % Normal 11.5-15.0 [facility] Comment on above: Order Comment: No: D o not add to previous draw Performed By: #### 5 0608 ####[facility] [place] [address], [facility] Hematocrit (Bld) [Volume fraction] 33.4 % Low 39.0-50.0 [facility] Comment on above: Order Comment: No: D o not add to previous draw Performed By: #### 5 0608 ####[facility] [id number], [facility] Hemoglobin (Bld) [Mass/Vol] 10.9 g/dL Low 13.0-17.0 [facility] Comment on above: Order Comment: No: D o not add to previous draw Performed By: #### 5 0608 ####[facility] [facility].[address] MCH (RBC) [Entitic mass] 30.4 pg Normal 27.0-33.0 [facility] Comment on above: Order Comment: No: D o not add to previous draw Performed By: #### 5 0608 ####[facility] MCHC (RBC) [Mass/Vol] 32.6 g/dL Normal 32.0-35.0 [facility] Comment on above: Order Comment: No: D o not add to previous draw Performed By: #### 5 0608 ####[facility] MCV (RBC) [Entitic vol] 93.3 fL Normal 82.0-98.0 [facility] Comment on above: Order Comment: No: D o not add to previous draw Performed By: #### 5 0608 ####[place] [address] [address] Nucleated RBC/100 WBC (Bld) [Ratio] 0 % Normal 0-0 [facility] Comment on above: Order Comment: No: D o not add to previous draw Performed By: #### 5 0608 ####[facility] [place] [address] PLAT CNT 228 10*3/uL Normal 150-400 [facility] Comment on above: Order Comment: No: D o not add to previous draw Performed By: #### 5 0608 ####[facility] [place] [address] RBC (Bld) [#/Vol] 3.58 10*6/uL Low 4.20-5.70 [facility] Comment on above: Order Comment: No: D o not add to previous draw Performed By: #### 5 0608 ####[facility] [facility].[address] WBC (Bld) [#/Vol] 18.53 10*3/uL High 4.00-10.60 [facility] Comment on above: Order Comment: No: D o not add to previous draw Performed By: #### 5 0608 ####[facility] [facility].[address] Erythrocyte distribution width (RBC) [Ratio] 14.6 % Normal 11.5-15.0 [facility] Comment on above: Performed By: #### 5 0608 ####[facility] [facility].[address] Hematocrit (Bld) [Volume fraction] 35.5 % Low 39.0-50.0 [facility] Comment on above: Performed By: #### 5 0608 ####[facility] [facility] [place] [address], [facility] Hemoglobin (Bld) [Mass/Vol] 11.5 g/dL Low 13.0-17.0 [facility] Comment on above: Performed By: #### 5 0608 ####[facility] [facility] [place] [address], [facility] MCH (RBC) [Entitic mass] 30.5 pg Normal 27.0-33.0 [facility] Comment on above: Performed By: #### 5 0608 ####[facility] [facility] [place] [address], [facility] MCHC (RBC) [Mass/Vol] 32.4 g/dL Normal 32.0-35.0 [facility] Comment on above: Performed By: #### 5 0608 ####[facility] [facility] [place] [address], [facility] MCV (RBC) [Entitic vol] 94.2 fL Normal 82.0-98.0 [facility] Comment on above: Performed By: #### 5 0608 ####[facility] [facility].[address] Nucleated RBC/100 WBC (Bld) [Ratio] 0 % Normal 0-0 [facility] Comment on above: Performed By: #### 5 0608 ####[facility] [facility].[address] PLAT CNT 219 10*3/uL Normal 150-400 [facility] Comment on above: Performed By: #### 5 0608 ####[address] [facility].[address] RBC (Bld) [#/Vol] 3.77 10*6/uL Low 4.20-5.70 [facility] Comment on above: Performed By: #### 5 0608 ####[facility] [facility].[address] WBC (Bld) [#/Vol] 14.37 10*3/uL High 4.00-10.60 [facility] Comment on above: Performed By: #### 5 0608 ####[facility] [facility].[address] Erythrocyte distribution width (RBC) [Ratio] 14.7 % Normal 11.5-15.0 [facility] Comment on above: Order Comment: No: D o not add to previous draw Performed By: #### 5 0608 ####[facility] Hematocrit (Bld) [Volume fraction] 40.7 % Normal 39.0-50.0 [facility] Comment on above: Order Comment: No: D o not add to previous draw Performed By: #### 5 0608 ####[facility] Hemoglobin (Bld) [Mass/Vol] 13.5 g/dL Normal 13.0-17.0 [facility] Comment on above: Order Comment: No: D o not add to previous draw Performed By: #### 5 0608 ####[address] MCH (RBC) [Entitic mass] 30.5 pg Normal 27.0-33.0 [facility] Comment on above: Order Comment: No: D o not add to previous draw Performed By: #### 5 0608 ####[address] MCHC (RBC) [Mass/Vol] 33.2 g/dL Normal 32.0-35.0 [facility] Comment on above: Order Comment: No: D o not add to previous draw Performed By: #### 5 0608 ####[address] MCV (RBC) [Entitic vol] 92.1 fL Normal 82.0-98.0 [facility] Comment on above: Order Comment: No: D o not add to previous draw Performed By: #### 5 0608 ####[address] Nucleated RBC/100 WBC (Bld) [Ratio] 0 % Normal 0-0 [facility] Comment on above: Order Comment: No: D o not add to previous draw Performed By: #### 5 0608 ####[address] PLAT CNT 233 10*3/uL Normal 150-400 [facility] Comment on above: Order Comment: No: D o not add to previous draw Performed By: #### 5 0608 ####[address] [place] [address], [place] RBC (Bld) [#/Vol] 4.42 10*6/uL Normal 4.20-5.70 [facility] Comment on above: Order Comment: No: D o not add to previous draw Performed By: #### 5 0608 ####[facility] WBC (Bld) [#/Vol] 7.11 10*3/uL Normal 4.00-10.60 [facility] Comment on above: Order Comment: No: D o not add to previous draw Performed By: #### 5 0608 ####[facility]3000 [facility].[address] COOXIMETRYon 04-08-2021 COHB 1 % Normal [facility] Comment on above: Performed By: #### 7 0207 ####[facility]3000 [facility].[address] METHB 1 % Normal [facility] Comment on above: Performed By: #### 7 0207 ####[place] [address] [facility].[address] Oxygen saturation in Blood 77.5 % High 65.0-75.0 [facility] Comment on above: Performed By: #### 7 0207 ####[facility] [facility].[address] THB 10.7 g/dL Normal [facility] Comment on above: Performed By: #### 7 0207 ####[place] [address] [facility].[address] FERRITINon 04-08-2021 Ferritin [Mass/Vol] 116 ng/mL Normal 24-336 [facility] Comment on above: Performed By: #### 1 0070, 65572, 88523 ####[facility] [place] [address], [facility] FIBRINOGENon 04-08-2021 FIBRINOGEN 362 mg/dL Normal 150-425 [facility] Comment on above: Performed By: #### 5 7307, 49656, 92200 ####[facility] [place] [address], [facility] LACTATE BLOODon 04-08-2021 Lactate [Moles/Vol] 3.7 mmol/L High .5-2.2 [facility] Comment on above: Order Comment: No: D o not add to previous draw Result Comment: M-CR ITICAL RESULT(S) REVIEWED, CALLED TO AND READ BACK BY Kleber TRAN at 2203. Performed By: #### 1 0054 ####[facility] [place] [address], [facility] Lactate [Moles/Vol] 2.5 mmol/L High .5-2.2 [facility] Comment on above: Order Comment: No: D o not add to previous draw Performed By: #### 1 0054 ####[facility] [place] [address], [place] Lactate [Moles/Vol] 1.0 mmol/L Normal .5-2.2 [facility] Comment on above: Performed By: #### 1 0054 ####[facility] [place] [address], [place] MAGNESIUM BLOODon 04-08-2021 Magnesium [Mass/Vol] 2.3 mg/dL Normal 1.9-2.7 [facility] Comment on above: Order Comment: No: D o not add to previous draw Performed By: #### 1 0070, 66863, 90907 ####[facility] [place] [address], [place] Magnesium [Mass/Vol] 1.9 mg/dL Normal 1.9-2.7 [facility] Comment on above: Performed By: #### 1 0070, 56642, 76965 ####[facility] [place] [address], [facility] Magnesium [Mass/Vol] 2.2 mg/dL Normal 1.9-2.7 [facility] Comment on above: Order Comment: No: D o not add to previous draw Performed By: #### 0 0071, 69852, 16512 ####[facility] [place] [address], [facility] PERFUSION BLOOD PANELon 03-24 BASE EXCESS -3.0 mmol/L Low -2.0-3.0 [facility] Comment on above: Performed By: #### 3 0738 ####[facility] [place] [address], [facility] Glucose [Mass/Vol] 193 mg/dL High 70-105 [facility] Comment on above: Performed By: #### 3 0738 ####[facility] [place] [address], [facility] Hematocrit (Bld) [Volume fraction] 36 % Low 38-51 [facility] Comment on above: Performed By: #### 3 0738 ####[facility] [place] [address], [facility] Hemoglobin (Bld) [Mass/Vol] 12.2 g/dL Normal 12.0-17.0 [facility] Comment on above: Performed By: #### 3 0738 ####[facility] [place] [address], [facility] IONIZED CALCIUM 1.22 mmol/L Normal 1.12-1.32 [facility] Comment on above: Performed By: #### 3 0738 ####[facility] [place] [address], [facility] Oxygen (Bld) [Partial pressure] 131.0 mm[Hg] High 80.0-105.0 [facility] Comment on above: Performed By: #### 3 0738 ####[facility] [place] [address], [facility] PCO2 51.6 mmHg High 35.0-45.0 [facility] Comment on above: Performed By: #### 3 0738 ####[facility] [place] [address], [facility] pH (Bld) 7.28 [pH] Low 7.35-7.45 [facility] Comment on above: Performed By: #### 3 0738 ####[facility] [place] [address], [facility] Potassium [Moles/Vol] 4.4 mmol/L Normal 3.5-4.9 [facility] Comment on above: Performed By: #### 3 0738 ####[facility] [place] [address], [facility] Sodium [Moles/Vol] 139 mmol/L Normal 138-146 [facility] Comment on above: Performed By: #### 3 0738 ####[facility] [place] [address], [facility] BASE EXCESS -2.0 mmol/L Normal -2.0-3.0 [facility] Comment on above: Performed By: #### 3 0738 ####[facility] [place] [address], [facility] Glucose [Mass/Vol] 156 mg/dL High 70-105 [facility] Comment on above: Performed By: #### 3 0738 ####[facility] [place] [address], [facility] Hematocrit (Bld) [Volume fraction] 36 % Low 38-51 [facility] Comment on above: Performed By: #### 3 0738 ####[facility] [place] [address], [facility] Hemoglobin (Bld) [Mass/Vol] 12.2 g/dL Normal 12.0-17.0 [facility] Comment on above: Performed By: #### 3 0738 ####[facility] [place] [address], [facility] IONIZED CALCIUM 1.17 mmol/L Normal 1.12-1.32 [facility] Comment on above: Performed By: #### 3 0738 ####[facility] [place] [address], [facility] Oxygen (Bld) [Partial pressure] 196.0 mm[Hg] High 80.0-105.0 [facility] Comment on above: Performed By: #### 3 0738 ####[facility] [place] [address], [facility] PCO2 46.9 mmHg High 35.0-45.0 [facility] Comment on above: Performed By: #### 3 0738 ####[facility] [place] [address], [facility] pH (Bld) 7.33 [pH] Low 7.35-7.45 [facility] Comment on above: Performed By: #### 3 0738 ####[facility] [place] [address], [facility] Potassium [Moles/Vol] 4.5 mmol/L Normal 3.5-4.9 [facility] Comment on above: Performed By: #### 3 0738 ####[facility] [place] [address], [facility] Sodium [Moles/Vol] 139 mmol/L Normal 138-146 [facility] Comment on above: Performed By: #### 3 0738 ####[facility] [place] [address], [facility] BASE EXCESS -1.0 mmol/L Normal -2.0-3.0 [facility] Comment on above: Performed By: #### 3 0738 ####[facility] [place] [address], [facility] Glucose [Mass/Vol] 133 mg/dL High 70-105 [facility] Comment on above: Performed By: #### 3 0738 ####[facility] [place] [address], [facility] Hematocrit (Bld) [Volume fraction] 37 % Low 38-51 [facility] Comment on above: Performed By: #### 3 0738 ####[facility] Hemoglobin (Bld) [Mass/Vol] 12.6 g/dL Normal 12.0-17.0 [facility] Comment on above: Performed By: #### 3 0738 ####[facility] [place] [address], [facility] IONIZED CALCIUM 1.19 mmol/L Normal 1.12-1.32 [facility] Comment on above: Performed By: #### 3 0738 ####[facility] [place] [address], [facility] Oxygen (Bld) [Partial pressure] 184.0 mm[Hg] High 80.0-105.0 [facility] Comment on above: Performed By: #### 3 0738 ####[facility] [place] [address], [facility] PCO2 46.6 mmHg High 35.0-45.0 [facility] Comment on above: Performed By: #### 3 0738 ####[facility] [place] [address], [facility] pH (Bld) 7.34 [pH] Low 7.35-7.45 [facility] Comment on above: Performed By: #### 3 0738 ####[facility] [place] [address], [facility] Potassium [Moles/Vol] 4.3 mmol/L Normal 3.5-4.9 [facility] Comment on above: Performed By: #### 3 0738 ####[facility] [place] [address], [facility] Sodium [Moles/Vol] 139 mmol/L Normal 138-146 [facility] Comment on above: Performed By: #### 3 0738 ####[facility] [place] [address], [facility] BASE EXCESS -1.0 mmol/L Normal -2.0-3.0 [facility] Comment on above: Performed By: #### 3 0738 ####[facility] Glucose [Mass/Vol] 118 mg/dL High 70-105 [facility] Comment on above: Performed By: #### 3 0738 ####[place] [address] [facility].[address] Hematocrit (Bld) [Volume fraction] 39 % Normal 38-51 [facility] Comment on above: Performed By: #### 3 0738 ####[facility] [place] [address], [facility] Hemoglobin (Bld) [Mass/Vol] 13.3 g/dL Normal 12.0-17.0 [facility] Comment on above: Performed By: #### 3 0738 ####[facility] [place] [address], [facility] IONIZED CALCIUM 1.17 mmol/L Normal 1.12-1.32 [facility] Comment on above: Performed By: #### 3 0738 ####[facility] [place] [address], [facility] Oxygen (Bld) [Partial pressure] 96.0 mm[Hg] Normal 80.0-105.0 [facility] Comment on above: Performed By: #### 3 0738 ####[facility] [place] [address], [place] PCO2 41.2 mmHg Normal 35.0-45.0 [facility] Comment on above: Performed By: #### 3 0738 ####[facility] [place] [address], [place] pH (Bld) 7.38 [pH] Normal 7.35-7.45 [facility] Comment on above: Performed By: #### 3 0738 ####[facility] [place] [address], [place] Potassium [Moles/Vol] 4.3 mmol/L Normal 3.5-4.9 [facility] Comment on above: Performed By: #### 3 0738 ####[facility] [place] [address], [place] Sodium [Moles/Vol] 139 mmol/L Normal 138-146 [facility] Comment on above: Performed By: #### 3 0738 ####[facility] [place] [address], [place] PHOSPHORUS BLOODon 1 Phosphate [Mass/Vol] 4.0 mg/dL Normal 2.5-5.0 [facility] Comment on above: Order Comment: No: D o not add to previous draw Performed By: #### 1 0070, 75099, 78869 ####[facility] [place] [address], [place] Phosphate [Mass/Vol] 3.8 mg/dL Normal 2.5-5.0 [facility] Comment on above: Order Comment: No: D o not add to previous draw Performed By: #### 0 0071, 06983, 77989 ####[facility] [place] [address], [place] POC GLUCOSE LABon 04-08-2021 Glucose [Mass/Vol] 252 mg/dL High 70-100 [facility] Comment on above: Performed By: #### 8 5499 ####[facility] [place] [address], [place] Glucose [Mass/Vol] 240 mg/dL High 70-100 [facility] Comment on above: Performed By: #### 8 5499 ####[facility] [place] [address], [place] Glucose [Mass/Vol] 126 mg/dL High 70-100 [facility] Comment on above: Performed By: #### 8 5499 ####[facility] [place] [address], [place] Glucose [Mass/Vol] 178 mg/dL High 70-100 [facility] Comment on above: Performed By: #### 8 5499 ####[facility] [place] [address], [place] Glucose [Mass/Vol] 195 mg/dL High 70-100 [facility] Comment on above: Performed By: #### 8 5499 ####[facility] [place] [address], [place] Glucose [Mass/Vol] 113 mg/dL High 70-100 [facility] Comment on above: Performed By: #### 8 5499 ####[facility] [place] [address], [place] Glucose [Mass/Vol] 118 mg/dL High 70-100 [facility] Comment on above: Performed By: #### 8 5499 ####[facility] [place] [address], [place] PORTABLE CHEST 1 VIEWon 03-24 PORTABLE CHEST 1 VIEW Normal [facility] Comment on above: Order Comment: Check Chest Tube Position, ON ARRIVAL TO CVU PROTHROMBIN TIMEon INR Coag (PPP) [Relative time] 1.20 {INR} High 0.91-1.16 [facility] Comment on above: [...] OF ACTION, CLINICALEFFECTIVENESS, AND OPTIMAL THERAPEUTIC RANGE. [id number];108:231S-246S. Performed By: #### 5 6101, 46164 ####[facility] [facility] [place] [address], [facility] PT Coag (PPP) [Time] 15.2 s High 12.3-14.8 [facility] Comment on above: Order Comment: No: D o not add to previous draw Result Comment: ALL RESULTS MUST BE INTERPRETED WITH RESPECT TO BLOOD DRAWING ARTIFACTOR DILUTION ERROR OF ANTICOAGULANT AT THE TIME OF SAMPLING. Performed By: #### 5 6101, 07692 ####[facility] [place] [address], [facility] INR Coag (PPP) [Relative time] 1.23 {INR} High 0.91-1.16 [facility] Comment on above: Result Comment: [employer] P RECOMMENDED INR FOR WARFARIN THERAPY CONDITION INRPROPHYLAXIS OF VENOUS THROMBOSIS 2-3(HIGH-RISK SURGERY)TREATMENT OF VENOUS THROMBOSIS 2-3TREATMENT OF PULMONARY EMBOLISM 2-3PREVENTION OF SYSTEMIC EMBOLISM: 2-3 ACUTE MYOCARDIAL INFARCTION TISSUE HEART VALVES VALVULAR HEART DISEASE ATRIAL FIBRILLATION RECURRENT SYSTEMIC EMBOLISMMECHANICAL HEART VALVE 2.5-3.5 FROM: ORAL ANTICOAGULANTS. MECHANISM OF ACTION, CLINICALEFFECTIVENESS, AND OPTIMAL THERAPEUTIC RANGE. [id number];108:231S-246S. Performed By: #### 5 7307, 44016, 06644 ####[facility] [facility] [place] [address], [facility] PT Coag (PPP) [Time] 15.5 s High 12.3-14.8 [facility] Comment on above: Result Comment: ALL RESULTS MUST BE INTERPRETED WITH RESPECT TO BLOOD DRAWING ARTIFACTOR DILUTION ERROR OF ANTICOAGULANT AT THE TIME OF SAMPLING. Performed By: #### 5 7307, 21397, 35312 ####[facility] [facility] [place] [address], [facility] INR Coag (PPP) [Relative time] 1.05 {INR} Normal 0.91-1.16 [facility] Comment on above: Order Comment: No: D o not add to previous draw Result Comment: [employer] P RECOMMENDED INR FOR WARFARIN THERAPY CONDITION INRPROPHYLAXIS OF VENOUS THROMBOSIS 2-3(HIGH-RISK SURGERY)TREATMENT OF VENOUS THROMBOSIS 2-3TREATMENT OF PULMONARY EMBOLISM 2-3PREVENTION OF SYSTEMIC EMBOLISM: 2-3 ACUTE MYOCARDIAL INFARCTION TISSUE HEART VALVES VALVULAR HEART DISEASE ATRIAL FIBRILLATION RECURRENT SYSTEMIC EMBOLISMMECHANICAL HEART VALVE 2.5-3.5 FROM: ORAL ANTICOAGULANTS. MECHANISM OF ACTION, CLINICALEFFECTIVENESS, AND OPTIMAL THERAPEUTIC RANGE. [id number];108:231S-246S. Performed By: #### 5 6101 ####[facility] PT Coag (PPP) [Time] 13.7 s Normal 12.3-14.8 [facility] Comment on above: Order Comment: No: D o not add to previous draw Result Comment: ALL RESULTS MUST BE INTERPRETED WITH RESPECT TO BLOOD DRAWING ARTIFACTOR DILUTION ERROR OF ANTICOAGULANT AT THE TIME OF SAMPLING. Performed By: #### 5 6101 ####[facility] TROPONIN-Ion 04-08-2021 Troponin I.cardiac [Mass/Vol] 0.34 ng/mL Critically high 0.00-0.04 [facility] Comment on above: Order Comment: No: D o not add to previous draw Result Comment: M-TR OPONIN INITIAL CRITICAL HIGH; RESPUN AND RETESTEDM-CRITICAL RESULT(S) REVIEWED, CALLED TO AND READ BACK BY Kleber TRAN at 8388.REFERENCE RANGES: 0.00 - 0.04 ng/ml NORMAL 0.05 - 0.50 ng/ml INDETERMINATE > 0.50 ng/ml CONSISTENT WITH AN M.I. Performed By: #### 3 1530 ####[facility] [place] [address], [facility] POC GLUCOSE LABon 04-07-2021 Glucose [Mass/Vol] 121 mg/dL High 70-100 [facility] Comment on above: Performed By: #### 8 5499 ####[facility] [facility] [place] [address], [facility] Glucose [Mass/Vol] 165 mg/dL High 70-100 [facility] Comment on above: Performed By: #### 8 5499 ####[facility] [facility] [place] [address], [facility] Glucose [Mass/Vol] 109 mg/dL High 70-100 [facility] Comment on above: Performed By: #### 8 5499 ####[facility] [facility] [place] [address], [facility] POC SARS COV2 ANTIGEN NEGATI VEon 04-07-2021 POC SARS COV2 ANTIGEN NEG Negative Normal NEGATIVE [facility] Comment on above: Result Comment: [...] of clinicalsigns and symptoms consistent with COVID-19.The [employer] COVID-19 Ag Card is a lateral flow immunoassay intended forthe qualitative detection of nucleocapsid protein antigen [id number] in direct nasal swabs from individuals within [...] Certificate ofAccreditation. Performed By: #### 3 1977 ####[facility] [place] [address], [facility] Pulmonary Functionon 021 Pulmonary Function Normal [facility] RBC'S 4 UNITSon 04-07-2021 CROSSMATCH INTERP 1 COMP Normal [facility] Comment on above: Performed By: #### 8 6004 ####[facility] [place] [address], [facility] CROSSMATCH INTERP 2 COMP Normal [facility] Comment on above: Performed By: #### 8 6004 ####[facility] [place] [address], [facility] CROSSMATCH INTERP 3 COMP Normal [facility] Comment on above: Performed By: #### 8 6004 ####[facility] [place] [address], [facility] CROSSMATCH INTERP 4 COMP Normal [facility] Comment on above: Performed By: #### 8 6004 ####[facility] [place] [address], [facility] PRODUCT CODE 1 E0336 Normal [facility] Comment on above: Performed By: #### 8 6004 ####[facility] [place] [address], [facility] PRODUCT CODE 2 E0336 Normal [facility] Comment on above: Performed By: #### 8 6004 ####[facility] [place] [address], [facility] PRODUCT CODE 3 E0336 Normal [facility] Comment on above: Performed By: #### 8 6004 ####[facility] [place] [address], [place] PRODUCT CODE 4 E0336 Normal [facility] Comment on above: Performed By: #### 8 6004 ####[facility] [place] [address], [facility] PRODUCT STATUS 1 RE Normal [facility] Comment on above: Result Comment: Resu lt changed by IF on 04/08/2021 12:37. The previous value was XM.Result changed by IF on 04/08/2021 16:53. The previous value was IS.Result changed by IF on 04/11/2021 11:14. The previous value was XM. Performed By: #### 8 6004 ####[facility] [place] [address], [facility] PRODUCT STATUS 2 RE Normal [facility] Comment on above: Result Comment: Resu lt changed by IF on 04/08/2021 12:37. The previous value was XM.Result changed by IF on 04/08/2021 16:53. The previous value was IS.Result changed by IF on 04/11/2021 11:14. The previous value was XM. Performed By: #### 8 6004 ####[facility] [facility] [place] [address], [facility] PRODUCT STATUS 3 RE Normal [facility] Comment on above: Result Comment: Resu lt changed by IF on 04/08/2021 12:37. The previous value was XM.Result changed by IF on 04/08/2021 16:53. The previous value was IS.Result changed by IF on 04/11/2021 11:14. The previous value was XM. Performed By: #### 8 6004 ####[facility] [place] [address], [facility] PRODUCT STATUS 4 RE Normal [facility] Comment on above: Result Comment: Resu lt changed by IF on 04/08/2021 12:37. The previous value was XM.Result changed by IF on 04/08/2021 16:53. The previous value was IS.Result changed by IF on 04/11/2021 11:14. The previous value was XM. Performed By: #### 8 6004 ####[facility] [place] [address], [facility] UNIT ABO 1 O Normal [facility] Comment on above: Performed By: #### [id number] ####[facility] [place] [address], [facility] A[facility] 2 O Normal [facility] Comment on above: Performed By: #### [id number] ####[facility] [place] [address], [facility] ABO 3 O Normal [facility] Comment on above: Performed By: #### [id number] ####[facility] [place] [address], [facility] ABO 4 O Normal [facility] Comment on above: Performed By: #### [id number] ####[facility] [place] [address], [facility] ID 1 [id number] Normal [facility] Comment on above: Performed By: #### 8 6004 ####[facility] [facility] [place] [address], [facility] UNIT ID 2 [id number] Normal [facility] Comment on above: Performed By: #### 8 6004 ####[facility] [facility] [place] [address], [facility] UNIT ID 3 [id number] Normal [facility] Comment on above: Performed By: #### 8 6004 ####[facility] [facility] [place] [address], [facility] UNIT ID 4 [id number] Normal [facility] Comment on above: Performed By: #### 8 6004 ####[facility] [place] [address], [facility] UNIT RH 1 Positive Normal [facility] Comment on above: Performed By: #### 8 6004 ####[facility] [place] [address], [facility] UN[facility] RH 2 Positive Normal [facility] Comment on above: Performed By: #### 8 6004 ####[facility] [place] [address], [facility] UN[facility] RH 3 Positive Normal [facility] Comment on above: Performed By: #### 8 6004 ####[facility] [place] [address], [facility] UN[facility] RH 4 Positive Normal [facility] Comment on above: Performed By: #### 8 6004 ####[facility] [place] [address], [facility] TYPE AND SCREENon 04-07-2021 ABO INTERPRETATION O Normal [facility] Comment on above: Performed By: #### 6 2586 ####[facility] [place] [address], [facility] RH INTERPRETATION Positive Normal [facility] Comment on above: Performed By: #### 6 2586 ####[facility] [place] [address], [facility] *MRSA/MSSA DNA NASALon 04-06 *MRSA/MSSA DNA NASAL Clinical Report: (D ) Specimen: NASAL SWAB Collected: 04/06/2021 12:43 Status: Final Last Updated: 04/06/2021 16:01 MSSA DNA (Final) Negative MRSA DNA (Final) Negative Normal [facility] Comment on above: Performed By: #### 3 1595 ####[facility], [place] [id number] [place] [address] BASIC METABOLIC PANELon 08- Calcium [Mass/Vol] 8.9 mg/dL Normal 8.6-10.3 [facility] Comment on above: Order Comment: No: D o not add to previous draw Performed By: #### 1 0, 23061 ####[facility] [place] [address], [facility] Chloride [Moles/Vol] 103 mmol/L Normal 98-107 [facility] Comment on above: Order Comment: No: D o not add to previous draw Performed By: #### 1 0, 17482 ####[facility] [place] [address], [place] CO2 [Moles/Vol] 26 mmol/L Normal 21-31 [facility] Comment on above: Order Comment: No: D o not add to previous draw Performed By: #### 1 69, 98624 ####[facility] [place] [address], [facility] Creatinine [Mass/Vol] 0.78 mg/dL Normal 0.70-1.30 [facility] Comment on above: Order Comment: No: D o not add to previous draw Performed By: #### 1 69, 17078 ####[facility] [place] [address], [place] GFR/1.73 sq M.predicted among blacks MDRD (S/P/Bld) [Vol rate/Area] mL/min/{1.73_m2} Normal >60 [facility] Comment on above: Order Comment: No: D o not add to previous draw Result Comment: Calc ulation may not be valid for patients over 70 years Performed By: #### 1 69, 32975 ####[facility] [place] [address], [place] GFR/1.73 sq M.predicted among non-blacks MDRD (S/P/Bld) [Vol rate/Area] mL/min/{1.73_m2} Normal >60 [facility] Comment on above: Order Comment: No: D o not add to previous draw Result Comment: Calc ulation may not be valid for patients over 70 years Performed By: #### 1 0070, 02178 ####[facility] [place] [address], [facility] Glucose [Mass/Vol] 101 mg/dL High 70-100 [facility] Comment on above: Order Comment: No: D o not add to previous draw Performed By: #### 1 69, 25579 ####[facility] [place] [address], [facility] Potassium [Moles/Vol] 4.1 mmol/L Normal 3.5-5.1 [facility] Comment on above: Order Comment: No: D o not add to previous draw Performed By: #### 1 69, 91169 ####[facility] [place] [address], [facility] Sodium [Moles/Vol] 134 mmol/L Low 136-145 [facility] Comment on above: Order Comment: No: D o not add to previous draw Performed By: #### 1 69, 79383 ####[facility] [facility] [place] [address], [facility] Urea nitrogen [Mass/Vol] 20 mg/dL Normal 7-25 [facility] Comment on above: Order Comment: No: D o not add to previous draw Performed By: #### 1 69, 52710 ####[facility] [facility].[address] CBC COMPLETE BLOOD COUNTon 0 - Erythrocyte distribution width (RBC) [Ratio] 15.3 % High 11.5-15.0 [facility] Comment on above: Order Comment: No: D o not add to previous draw Performed By: #### 5 0608 ####[facility] [place] [address], [facility] Hematocrit (Bld) [Volume fraction] 43.0 % Normal 39.0-50.0 [facility] Comment on above: Order Comment: No: D o not add to previous draw Performed By: #### 5 0608 ####[facility] Hemoglobin (Bld) [Mass/Vol] 14.3 g/dL Normal 13.0-17.0 [facility] Comment on above: Order Comment: No: D o not add to previous draw Performed By: #### 5 0608 ####[address] MCH (RBC) [Entitic mass] 30.6 pg Normal 27.0-33.0 [facility] Comment on above: Order Comment: No: D o not add to previous draw Performed By: #### 5 0608 ####[address] MCHC (RBC) [Mass/Vol] 33.3 g/dL Normal 32.0-35.0 [facility] Comment on above: Order Comment: No: D o not add to previous draw Performed By: #### 5 0608 ####[address] MCV (RBC) [Entitic vol] 92.1 fL Normal 82.0-98.0 [facility] Comment on above: Order Comment: No: D o not add to previous draw Performed By: #### 5 0608 ####[address] Nucleated RBC/100 WBC (Bld) [Ratio] 0 % Normal 0-0 [facility] Comment on above: Order Comment: No: D o not add to previous draw Performed By: #### 5 0608 ####[address] PLAT CNT 238 10*3/uL Normal 150-400 [facility] Comment on above: Order Comment: No: D o not add to previous draw Performed By: #### 5 0608 ####[facility] [place] [address], [place] RBC (Bld) [#/Vol] 4.67 10*6/uL Normal 4.20-5.70 [facility] Comment on above: Order Comment: No: D o not add to previous draw Performed By: #### 5 0608 ####[facility] [place] [address], [place] WBC (Bld) [#/Vol] 6.86 10*3/uL Normal 4.00-10.60 [facility] Comment on above: Order Comment: No: D o not add to previous draw Performed By: #### 5 0608 ####[facility] [place] [address], [place] MAGNESIUM BLOODon 04-06-2021 Magnesium [Mass/Vol] 2.0 mg/dL Normal 1.9-2.7 [facility] Comment on above: Order Comment: No: D o not add to previous draw Performed By: #### 1 0070, 63567 ####[facility] [place] [address], [place] POC GLUCOSE LABon 04-06-2021 Glucose [Mass/Vol] 118 mg/dL High 70-100 [facility] Comment on above: Performed By: #### 8 5499 ####[facility] [place] [address], [place] Glucose [Mass/Vol] 108 mg/dL High 70-100 [facility] Comment on above: Performed By: #### 8 5499 ####[facility] [place] [address], [place] Glucose [Mass/Vol] 114 mg/dL High 70-100 [facility] Comment on above: Performed By: #### 8 5499 ####[facility] [place] [address], [place] Glucose [Mass/Vol] 126 mg/dL High 70-100 [facility] Comment on above: Performed By: #### 8 5499 ####[facility] [facility] [place] [address], [facility] URINALYSIS REFLEXon 04-06-20 21 Appearance (U) CLEAR Normal CLEAR [facility] Comment on above: Order Comment: No: D o not add to previous drawCriteria for reflexing a culture was not met. Please call the lab [id number] within 24 hours of collection time if culture is needed Performed By: #### 3 0965 ####[facility] [facility] [place] [address], [facility] Bilirubin Ql (U) Negative Normal NEGATIVE [facility] Comment on above: Order Comment: No: D o not add to previous drawCriteria for reflexing a culture was not met. Please call the lab [id number] within 24 hours of collection time if culture is needed Performed By: #### 3 0965 ####[facility] [facility] [place] [address], [facility] Color (U) YELLOW Normal YELLOW [facility] Comment on above: Order Comment: No: D o not add to previous drawCriteria for reflexing a culture was not met. Please call the lab [id number] within 24 hours of collection time if culture is needed Performed By: #### 3 0965 ####[facility] [facility] [place] [address], [facility] Glucose Ql (U) Negative Normal NEGATIVE [facility] Comment on above: Order Comment: No: D o not add to previous drawCriteria for reflexing a culture was not met. Please call the lab [id number] within 24 hours of collection time if culture is needed Performed By: #### 3 0965 ####[facility] [facility] [place] [address], [facility] Hemoglobin Ql (U) Negative Normal NEGATIVE [facility] Comment on above: Order Comment: No: D o not add to previous drawCriteria for reflexing a culture was not met. Please call the lab [id number] within 24 hours of collection time if culture is needed Performed By: #### 3 0965 ####[facility] [facility] [place] [address], [facility] KETONE Negative Normal NEGATIVE [facility] Comment on above: Order Comment: No: D o not add to previous drawCriteria for reflexing a culture was not met. Please call the lab [id number] within 24 hours of collection time if culture is needed Performed By: #### 3 0965 ####[facility] [facility] [place] [address], [facility] LEUK JESS Negative Normal NEGATIVE [facility] Comment on above: Order Comment: No: D o not add to previous drawCriteria for reflexing a culture was not met. Please call the lab [id number] within 24 hours of collection time if culture is needed Performed By: #### 3 0965 ####[facility] [facility].[address] MICRO NOT DONE Normal [facility] Comment on above: Order Comment: No: D o not add to previous drawCriteria for reflexing a culture was not met. Please call the lab [id number] within 24 hours of collection time if culture is needed Result Comment: Micr oscopics not performed on urines withnegative chemical reactions unless requested in original order Performed By: #### 3 0965 ####[facility] [facility].[address] Nitrite Ql (U) Negative Normal NEGATIVE [facility] Comment on above: Order Comment: No: D o not add to previous drawCriteria for reflexing a culture was not met. Please call the lab [id number] within 24 hours of collection time if culture is needed Performed By: #### 3 0965 ####[facility] [place] [address], [facility] pH (U) 6.0 [pH] Normal 5.0-8.0 [facility] Comment on above: Order Comment: No: D o not add to previous drawCriteria for reflexing a culture was not met. Please call the lab [id number] within 24 hours of collection time if culture is needed Performed By: #### 3 0965 ####[facility] Protein Ql (U) Negative Normal NEGATIVE [facility] Comment on above: Order Comment: No: D o not add to previous drawCriteria for reflexing a culture was not met. Please call the lab [id number] within 24 hours of collection time if culture is needed Performed By: #### 3 0965 ####[facility] SPEC GRAV 1.019 Normal 1.015-1.020 [facility] Comment on above: Order Comment: No: D o not add to previous drawCriteria for reflexing a culture was not met. Please call the lab [id number] within 24 hours of collection time if culture is needed Performed By: #### 3 0965 ####[facility] [facility].[address] Vital Signs Date Time Vital Sign Value Performing Clinician Lisa pond 12-19-2024 16:59-0400 Body mass index (BMI) [Ratio] 45.75 kg/m2 Teressa Sierra [employer]IDATION ENGINEER Work Phone: [facility] 12-19-2024 16:59-0400 Body temperature 97.81 [degF] Teressa Sierra VALIDATION ENGINEER Work Phone: [facility] 12-19-2024 16:59-0400 Body weight 146.69 kg Teressa Sierra VALIDATION ENGINEER Work Phone: [facility] 12-19-2024 16:59-0400 Diastolic blood pressure 66 mm[Hg] Teressa Sierra VALIDATION ENGINEER Work Phone: [facility] 12-19-2024 16:59-0400 Heart rate 59 /min Teressa Aichholz VALIDATION ENGINEER Work Phone: [facility] 12-19-2024 16:59-0400 Respiratory rate 26 /min Teressa Adolphholz VALIDATION ENGINEER Work Phone: [facility] 12-19-2024 16:59-0400 SaO2% (BldA) [Mass fraction] 94 % Teressa Samanthahholz VALIDATION ENGINEER Work Phone: [facility] 12-19-2024 16:59-0400 Systolic blood pressure 112 mm[Hg] Teressa Aichholz VALIDATION ENGINEER Work Phone: [facility] 09-27-2024 14:06-0500 Body height 179.1 cm Teressa Aichholz VALIDATION ENGINEER Work Phone: [facility] 09-27-2024 14:06-0500 Body mass index (BMI) [Ratio] 45.83 kg/m2 Teressa Samanthahholz VALIDATION ENGINEER Work Phone: [facility] 09-27-2024 14:06-0500 Body temperature 97.81 [degF] Teressa Samanthahholz VALIDATION ENGINEER Work Phone: [facility] 09-27-2024 14:06-0500 Body weight 146.97 kg Teressa Samanthahholz VALIDATION ENGINEER Work Phone: [facility] 09-27-2024 14:06-0500 Diastolic blood pressure 74 mm[Hg] Teressa Samanthahholz VALIDATION ENGINEER Work Phone: [facility] 09-27-2024 14:06-0500 Heart rate 83 /min Teressa Samanthahholz VALIDATION ENGINEER Work Phone: [facility] 09-27-2024 14:06-0500 Respiratory rate 24 /min Teressa Aichholz VALIDATION ENGINEER Work Phone: [facility] 09-27-2024 14:06-0500 SaO2% (BldA) [Mass fraction] 92 % Teressa Aichholz VALIDATION ENGINEER Work Phone: [facility] 09-27-2024 14:06-0500 Systolic blood pressure 132 mm[Hg] Teressa Samanthahholz VALIDATION ENGINEER Work Phone: [facility] 06-01-2024 15:17-0400 Body height 179.1 cm Teressa Aichholz VALIDATION ENGINEER Work Phone: [facility] 06-01-2024 15:17-0400 Body mass index (BMI) [Ratio] 45.52 kg/m2 Teressa Aichholz VALIDATION ENGINEER Work Phone: [facility] 06-01-2024 15:17-0400 Body temperature 98.49 [degF] Teressa Aichholz VALIDATION ENGINEER Work Phone: [facility] 06-01-2024 15:17-0400 Body weight 145.97 kg Teressa Aichholz VALIDATION ENGINEER Work Phone: [facility] 06-01-2024 15:17-0400 Diastolic blood pressure 68 mm[Hg] Teressa Aichholz VALIDATION ENGINEER Work Phone: [facility] 06-01-2024 15:17-0400 Heart rate 62 /min Teressa Aichholz VALIDATION ENGINEER Work Phone: [facility] 06-01-2024 15:17-0400 Respiratory rate 18 /min Teressa Aichholz VALIDATION ENGINEER Work Phone: [facility] 06-01-2024 15:17-0400 SaO2% (BldA) [Mass fraction] 95 % Teressa Aichholz VALIDATION ENGINEER Work Phone: [facility] 06-01-2024 15:17-0400 Systolic blood pressure 122 mm[Hg] Teressa Aichholz VALIDATION ENGINEER Work Phone: [facility] Healthcare Encounters Encounter Date Encounter Type Care Provider Facility Start: 12-28-2024 End: 12-28-2024 Bamboo flowsheet Brenna Dangelo PA Work Phone: [facility] Start: 12-28-2024 End: 12-28-2024 Bamboo flowsheet Brenna FISH Work Phone: [facility] Start: 12-28-2024 End: 12-28-2024 Office outpatient visit 10 minutes Brenna FISH Work Phone: [facility] Comment on above: Epidermal inclusion cyst (Primary Dx); Neoplasm of unspecified behavior of bone, soft tissue, and skin Start: 12-19-2024 End: 12-19-2024 Patient encounter procedure Teressa Sierra NP Work Phone: [facility] Comment on above: Encounter for subseq uent annual wellness visit (AWV) in Medicare patient (Primary Dx); Chronic obstructive pulmonary disease, unspecified COPD type ([facility]/HCC); 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 ([facility]); Essential hypertension; Type 2 diabetes mellitus with stage 3 chronic kidney disease, without long-term current use of insulin, unspecified whether stage 3a or 3b CKD (HCC) (CMS/[facility]); Neoplasm of uncertain behavior; Body mass index (BMI) 45.0-49.9, adult (CMS/HCC); Morbid (severe) obesity due to excess calories (CMS/HCC) Start: 12-19-2024 End: 12-19-2024 Refill Teressa Sierra NP Work Phone: [facility] Comment on above: Bilateral primary os teoarthritis of knee; 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 (CMS/HCC) Start: 10-11-2024 End: 10-11-2024 Clinisync Result Encounter Generic External Data Provider [facility] External Department Unsolicited Start: 10-11-2024 End: 10-11-2024 Clinisync Result Encounter Generic External Data Provider [facility] External Department Unsolicited Start: 10-04-2024 End: 10-04-2024 Refill Teressa Sierra NP Work Phone: [facility] Comment on above: Type 2 diabetes jennie itus without complications (CMS/HCC) Start: 10-03-2024 End: 10-03-2024 ambulatory [facility] Start: 09-27-2024 End: 09-27-2024 Bamboo flowsheet Teressa Sierra NP Work Phone: [facility] Start: 09-27-2024 End: 09-27-2024 Bamboo flowsheet Teressa Sierra VALIDATION ENGINEER Work Phone: [facility] Start: 09-27-2024 End: 09-27-2024 Office outpatient visit 25 minutes Teressa Sierra NP Work Phone: [facility] Comment on above: Obstructive sleep ap rohit syndrome (Primary Dx); Type 2 diabetes mellitus with diabetic chronic kidney disease ([facility]); 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 (CODE) ([facility]); Morbid (severe) obesity due to excess calories ([facility]); Body mass index (BMI) 45.0-49.9, adult ([facility]); Type 2 diabetes mellitus with diabetic peripheral angiopathy without gangrene ([facility]); Other ventricular tachycardia ([facility]); Chronic obstructive pulmonary disease, unspecified ([facility]); Chronic diastolic (congestive) heart failure ([facility]); Atherosclerosis of greenville coronary artery 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 pectoris ([facility]); Essential hypertension; Chronic kidney disease, stage 3a ([facility]) ([facility]); Bilateral lower extremity edema; Stasis edema with ulcer of both lower extremities ([facility]); Mixed hyperlipidemia ([facility]); Stasis dermatitis 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 hypertension ([facility]); 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 ([facility]) Start: 09-27-2024 End: 09-27-2024 ambulatory TERESSA ADOLPHHOLZ Not Available Start: 09-10-2024 End: 09-11-2024 Refill Teressa Mariela VALIDATION ENGINEER Work Phone: [facility] Comment on above: Localized edema Start: 09-08-2024 End: 09-08-2024 Refill Teressa Adolphholz VALIDATION ENGINEER Work Phone: [facility] Comment on above: Type 2 diabetes jennie itus without complication, without long- term current use of insulin ([facility]) Start: 08-04-2024 End: 08-04-2024 Clinisync Result Encounter Teressa Mariela VALIDATION ENGINEER Work Phone: [facility] External [facility] Unsolicited Start: 08-04-2024 End: 08-04-2024 Clinisync Result Encounter Teressa Samanthabeauz VALIDATION ENGINEER Work Phone: [facility] External [facility] Unsolicited Start: 07-13-2024 End: 07-13-2024 Refill Teressa Mairela VALIDATION ENGINEER Work Phone: [facility] Comment on above: Anemia, unspecified Start: 06-20-2024 End: 06-20-2024 Orders Only Teressa Mariela VALIDATION ENGINEER Work Phone: [facility] Comment on above: Chronic kidney disea se, stage 3a (HCC) (CMS/HCC) (Primary Dx) Start: 06-20-2024 End: 06-21-2024 Refill Teressa Mariela VALIDATION ENGINEER Work Phone: [facility] Comment on above: Type 2 diabetes jennie itus without complications (CMS/HCC) Start: 06-17-2024 End: 06-17-2024 Refill Teressa Frankz VALIDATION ENGINEER Work Phone: [facility] Comment on above: Bilateral primary os teoarthritis of knee; 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 (CMS/HCC) Start: 06-16-2024 End: 06-16-2024 Clinisync Result Encounter Teressa Mariela VALIDATION ENGINEER Work Phone: [facility] External Department Unsolicited Start: 06-16-2024 End: 06-16-2024 Clinisync Result Encounter Teressa Frankz VALIDATION ENGINEER Work Phone: [facility] External Department Unsolicited Start: 06-13-2024 End: 06-13-2024 Refill Teressa Samanthahholz VALIDATION ENGINEER Work Phone: [facility] Comment on above: Coronary artery dise ase involving greenville coronary artery 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 pectoris (CMS/HCC) (Primary Dx); Atherosclerosis of green[place] coronary artery 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 pectoris (CMS/HCC); Mixed hyperlipidemia ([facility]/HCC) Start: 06-01-2024 End: 06-01-2024 Office outpatient visit 25 minutes Teressa Sierra VALIDATION ENGINEER Work Phone: [facility] Comment on above: Type 2 diabetes jennie itus without complication, without long- term current use of insulin (CMS/HCC) (Primary Dx); Chronic kidney disease, stage 3a (HCC) (CMS/HCC); Mixed hyperlipidemia (CMS/HCC); 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 (CMS/HCC); Essential hypertension; Prostate cancer screening; Obstructive sleep apnea syndrome; Chronic obstructive pulmonary disease, unspecified COPD type ([facility]/HCC); Venous stasis of both lower extremities; Morbid (severe) obesity due to excess calories (CMS/HCC); Body mass index (BMI) 45.0-49.9, adult ([facility]) Start: 06-01-2024 End: 06-01-2024 ambulatory TERESSA SIERRA Not Available Start: 06-01-2024 End: 06-01-2024 Bamboo flowsheet Teressa Sierra VALIDATION ENGINEER Work Phone: [facility] Start: 06-01-2024 End: 06-01-2024 Bamboo flowsheet Teressa Sierra VALIDATION ENGINEER Work Phone: [facility] Start: 03-14-2024 End: 03-14-2024 ambulatory TERESSA SIERRA Not Available Start: 03-09-2024 End: 03-09-2024 ambulatory [facility] Start: 12-17-2023 End: 12-17-2023 ambulatory [facility] Start: 12-14-2023 Patient encounter procedure Teressa Sierra VALIDATION ENGINEER Work Phone: [facility] Start: 05-18-2023 End: 05-18-2023 ambulatory [facility] Facility:[facility] Start: 09-03-2022 End: 09-03-2022 ambulatory Moshe Garcia Other [facility] [employer] Other Start: 09-03-2022 Office outpatient ne w [...] Evaluation and management of inpatient MAL BARNES Facility:[facility] Procedures Date Procedure Procedure Detail Performing Clinician Start: 12-28-2024 SKIN / NAIL BIOPSY Efraín FISH Work Phone: Start: 12-19-2024 Hemoglobin glycosyla buck a1c Teressa Frankz VALIDATION ENGINEER Work Phone: Start: 10-11-2024 ALL BASIC METABOLIC PANEL Generic External Data Provider Start: 08-04-2024 ALL CBC WITH AUTO DIFF Teressa Aichholz VALIDATION ENGINEER Work Phone: Start: 06-16-2024 ALL CBC WITH AUTO DIFF Teressa Aichholz VALIDATION ENGINEER Work Phone: Start: 07-03-2021 End: 09-27-2024 History of coronary artery bypass grafting History of coronary artery bypass surgery Teressa Frankz VALIDATION ENGINEER Work Phone: Start: 05-24-2021 Antibody screen MAL BARNES Comment on above: Performed By: #### [id number] ####[facility] [place] [address], [facility] Start: 05-23-2021 EXCISION OF STERNUM, [...] on above: Performed By: #### [id number] ####[facility] Start: 05-16-2021 EXCISION OF CHEST SK IN, EXTERNAL APPROACH AKANKSHA UP Start: 05-16-2021 RESPIRATORY VENTILAT ION, LESS THAN 24 CONSECUTIVE HOURS GUDELIA MASROOR Start: 05-15-2021 Antibody screen MLA BARNES Comment on above: Performed By: #### [id number] ####[place] [id number], [place] [id number] [place] [address] Start: 04-07-2021 Antibody screen MAL BARNES Comment on above: Performed By: #### [id number] ####[address], [place] [id number] [place] [address] Plan of Treatment Date Care Activity Detail Author Start: 12-25-2025 End: 12-25-2025 Patient encounter procedure 12/25/2025 4:30 PM EDT Office [facility] [address] [place] [address] Teressa Sierra NP [address] [place] [address] [facility] Start: 12-19-2025 Medicare Annual Wellness (AWV) Medicare Annual Wellness (AWV) [facility] Start: 08-24-2025 Glaucoma screening Diabetes: Retinopathy Screening [facility] Start: 06-20-2025 Hemoglobin A1c measurement Diabetes: Hemoglobin A1C [facility] Start: 06-16-2025 Urine screening for protein Diabetes: Urine Protein Screening [facility] Start: 03-21-2025 End: 03-21-2025 Patient encounter procedure 03/21/2025 3:00 PM EDT Office Visit [facility] [address] [place] [address] Teressa Sierra NP [address] [place] [phone] [facility] Start: 12-28-2024 End: 12-28-2024 Patient encounter procedure 12/28/2024 10:30 AM EDT Office Visit [facility] [address] [place] [address] Brenna Dangelo PA [address] [place] [phone] Neoplasm of uncertain behavior [facility] Comment on above: Neoplasm of uncertain behavior Start: 12-19-2024 End: 12-19-2024 Patient encounter procedure 12/19/2024 4:30 PM EDT Office Visit [facility] [address] [place] [address] Teressa Sierra NP [address] [place] [phone] [facility] Start: 12-15-2024 Hemoglobin A1c measurement Diabetes: Hemoglobin A1C [facility] Start: 12-13-2024 Medicare Annual Wellness (AWV) Medicare Annual Wellness (AWV) [facility] Start: 09-27-2024 End: 09-27-2024 Patient encounter procedure 09/27/2024 2:00 PM EST Office Visit [facility] [address] [place] [address] Teressa Sierra, [place] [address] [place] [address] Obstructive sleep apnea syndrome (Primary Dx); Type [...] diastolic (congestive) heart failure (CMS/HCC); Atherosclerosis of greenville coronary artery 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 pectoris (CMS/HCC); Essential hypertension; Chronic kidney disease, stage 3a (HCC) (CMS/HCC); Bilateral lower extremity edema; Stasis edema with ulcer of both lower extremities (CMS/HCC); Mixed hyperlipidemia (CMS/HCC) [facility] Comment on above: Obstructive sleep apnea syndrome (Primar y Dx); Type 2 diabetes mellitus with diabetic [...] diastolic (congestive) heart failure (CMS/HCC); Atherosclerosis of greenville coronary artery 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 pectoris (CMS/HCC); Essential hypertension; Chronic kidney disease, stage 3a (HCC) (CMS/HCC); Bilateral lower extremity edema; Stasis edema with ulcer of both lower extremities (CMS/HCC); Mixed hyperlipidemia (CMS/HCC) Start: 09-14-2024 End: 09-14-2024 Patient encounter procedure 09/14/2024 2:00 PM EST Office Visit [facility] [address] [place] [address] Teressa Sierra, VALIDATION ENGINEER [address] [place] [phone] [facility] Start: 09-09-2024 Pneumococcal Vaccine: 65+ Years (1 of 2 - PCV) Pneumococcal Vaccine: 65+ Years (1 of 2 - PCV) [facility] Comment on above: Postponed from 1950 (Patient Refus ed) Start: 09-05-2024 End: 09-05-2024 Patient encounter procedure 09/05/2024 2:00 PM EST Office Visit [facility] [address] [place] [phone] Teressa Sierra, VALIDATION ENGINEER [address] [place] [phone] [facility] Start: 07-21-2024 End: 06-20-2025 CBC W Auto Differential panel - Blood CBC and differential Lab Routine Chronic kidney disease, stage 3a (HCC) ([facility]/HCC) Expected: 07/21/2024 (Approximate), Expires: 06/20/2025 [facility] Work Phone: Comment on above: Expected: 07/21/2024 (Approximate), Expi res: 06/20/2025 Start: 07-21-2024 End: 06-20-2025 Comprehensive metabolic 2000 panel - Serum or Plasma Comprehensive metabolic panel Lab Routine Chronic kidney disease, stage 3a (HCC) ([facility]/HCC) Expected: 07/21/2024 (Approximate), Expires: 06/20/2025 [facility] Comment on above: Expected: 07/21/2024 (Approximate), Expi res: 06/20/2025 Start: 06-17-2024 Hemoglobin A1c measurement Diabetes: Hemoglobin A1C [facility] Start: 06-01-2024 End: 06-01-2024 Patient encounter procedure 06/01/2024 3:00 PM EDT Office Visit [facility] [address] [place] [address] Teressa Sierra, VALIDATION ENGINEER [address] [place] [address] Chronic kidney disease, stage 3a (HCC) (CMS/HCC) (Primary Dx); Type 2 diabetes mellitus without complication, without long-term current use of insulin (CMS/HCC); Mixed hyperlipidemia (CMS/HCC); 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 (CMS/HCC); Essential hypertension; Prostate cancer screening [facility] Comment on above: Chronic kidney disease, stage 3a (HCC) ( CMS/HCC) (Primary Dx); Type 2 diabetes mellitus without complication, without long-term current use of insulin (CMS/HCC); Mixed hyperlipidemia (CMS/HCC); 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 (CMS/HCC); Essential hypertension; Prostate cancer screening Start: 06-01-2024 End: 06-01-2025 CBC W Auto Differential panel - Blood CBC and differential Lab Routine Chronic kidney disease, stage 3a (HCC) (CMS/HCC) Expected: 06/01/2024 (Approximate), Expires: 06/01/2025 [facility] Work Phone: Comment on above: Expected: 06/01/2024 (Approximate), Expi res: 06/01/2025 Start: 06-01-2024 End: 06-01-2025 Comprehensive metabolic 2000 panel - Serum or Plasma Comprehensive metabolic panel Lab Routine Type 2 diabetes mellitus without complication, without long-term current use of insulin (CMS/HCC) Mixed hyperlipidemia (CMS/HCC) Essential hypertension Expected: 06/01/2024 (Approximate), Expires: 06/01/2025 [facility] Comment on above: Expected: 06/01/2024 (Approximate), Expi res: 06/01/2025 Start: 06-01-2024 End: 06-01-2025 Hemoglobin A1c/Hemoglobin.total in Blood Hemoglobin A1c Lab Routine Type 2 diabetes mellitus without complication, without long-term current use of insulin (CMS/HCC) Expected: 06/01/2024 (Approximate), Expires: 06/01/2025 [facility] Comment on above: Expected: 06/01/2024 (Approximate), Expi res: 06/01/2025 Start: 06-01-2024 End: 06-01-2025 Lipid 1996 panel - Serum or Plasma Lipid panel Lab Routine Type 2 diabetes mellitus without complication, without long-term current use of insulin (CMS/HCC) Mixed hyperlipidemia (CMS/HCC) Expected: 06/01/2024 (Approximate), Expires: 06/01/2025 [facility] Comment on above: Expected: 06/01/2024 (Approximate), Expi res: 06/01/2025 Start: 06-01-2024 End: 06-01-2025 Microalbumin/Creatinine panel in random Urine Microalbumin / creatinine, urine ratio Lab Routine Type 2 diabetes mellitus without complication, without long-term current use of insulin (CMS/HCC) Essential hypertension Expected: 06/01/2024 (Approximate), Expires: 06/01/2025 [facility] Comment on above: Expected: 06/01/2024 (Approximate), Expi res: 06/01/2025 Start: 06-01-2024 End: 06-01-2025 Prostate specific Ag [Mass/volume] in Serum or Plasma PSA Lab Routine Prostate cancer screening Expected: 06/01/2024 (Approximate), Expires: 06/01/2025 [facility] Comment on above: Expected: 06/01/2024 (Approximate), Expi res: 06/01/2025 Start: 06-01-2024 End: 06-01-2025 Urinalysis complete panel - Urine Urinalysis with reflex microscopic (clean catch) Lab Routine Type 2 diabetes mellitus without complication, without long-term current use of insulin (CMS/HCC) Essential hypertension Expected: 06/01/2024 (Approximate), Expires: 06/01/2025 [facility] Comment on above: Expected: 06/01/2024 (Approximate), Expi res: 06/01/2025 Start: 05-20-2024 Urine screening for protein Diabetes: Urine Protein Screening [facility] Start: 1963 Pneumococcal Vaccine: 65+ Years (1 of 2 - PCV) Pneumococcal Vaccine: 65+ Years (1 of 2 - PCV) [facility] Start: 1950 Pneumococcal Vaccine: 65+ Years (1 of 2 - PCV) Pneumococcal Vaccine: 65+ Years (1 of 2 - PCV) [facility] Dermatopathology exam Dermatopat hology exam Pathology and Cytology Timed Neoplasm of unspecified behavior of bone, soft tissue, and skin Release Upon Ordering for 1 Occurrences starting 12/28/2024 [facility] [employer] Work Phone: Comment on above: Release Upon Ordering for 1 Occurrences starting 12/28/2024 Payers Date Payer Category Payer Medicare [id number] 2023 Medicare (Managed Care) 1.2. [id number] 2023 Unknown [employer] [id number] 2023-Present [address] [place] [address] [id number] 2023 Unknown [id number] 2009 Medicare MEDICARE [id number] 5 1959 Private Health Insurance [id number] 1959 Self-pay 1944 Unknown [id number] [id number] .2.647 1944 Unknown [id number] 2.16.840.1.884839.3.579 .2.593 1944 Unknown [id number] 2.16.840.1.045943.3.579 .2.593 1944 Unknown [id number] 2.16.840.1.664860.3.579 .2.593 1944 Unknown [id number] 2.16.840.1.174528.3.579 .2.593 1944 Unknown [id number] 2.16.840.1.613899.3.579 .2.593 1944 Unknown [id number] 2.16.840.1.996881.3.579 .2.593 1944 Unknown [id number] 2.16.840.1.760826.3.579 .2.593 1944 Unknown [id number] 2.16.840.1.830625.3.579 .2.593 1944 Unknown [id number] 2.16.840.1.154033.3.579 .2.593 1944 Unknown [id number] 2.16.840.1.185454.3.579 .2.1259 1944 Unknown [id number] 2.16.840.1.099230.3.579 .2.1259 1944 Unknown [id number] 2.16.840.1.301525.3.579 .2.1259 1944 Unknown [id number] 2.16.840.1.846525.3.579 .2.1259 Unknown [id number] [id number] .2.531 Social History Date Type Detail Facility Start: 12-14-2023 End: 12-19-2024 Sex Assigned At [facility] Start: 09-07-2023 Tobacco smoking status NHIS Ex-smoke r [facility] History of tobacco use Current smoker [facility] History of tobacco use Cigarette Smoker [facility] Start: 09-07-2023 End: 12-14-2023 Cigarettes smoked current (pack per day) - Reported 0.8 [facility] Start: 09-07-2023 Tobacco use and exposure User of smokeless tobacco [facility] History of tobacco use Chews Tobacco [facility] Start: 03-14-2024 End: 12-28-2024 Alcoholic beverage intake Current drinker of alcohol (finding) [facility] Within the last year , have you been afraid of your partner or ex-partner? No [facility] Do you belong to any clubs or organizations such as zoroastrianism groups, unions, fraternal or athletic groups, or [...] Equipment Origin al Text Equipment Identifier Dates [id number], [id number] Start: 06-21-2024 End: 10-04-2024 Functional Status Date Assessment Result Facility 12-19-2024 Patient Health Quest ionnaire 2 item (PHQ-2) [Reported] [facility] Clinical Notes 10-11-2020 to 12-28-2024 POLINA Graham - 12/28/2024 10:30 AM Celso Sierra NP - 12/19/2024 7:01 PM Celso Sierra NP - 12/19/2024 7:01 PM JAY TRIPATHI - 12/19/2024 4:30 PM EDTPatient Instructions Note Date & Type Note Facility 12-28-2024 History of Present illness Narrative Images from the original note were not included. Lesions: Location: right neck Duration: years Quality: denies pain, denies itch, denies bleeding Modifying factors: none Associated symptoms: beauty george Treatments: none Lesion # 2: Location: left ear lobe Duration: years Quality: denies pain, denies itch, denies bleeding Modifying factors: none Associated symptoms: bump Treatments: none New patient, referred by Teressa Sierra NP All pertinent medical history, medications, and allergies were reviewed. General Exam: alert, oriented to person, place, and time, normal affect, well appearing Unaccompanied A focused exam completed based on patient reported problems, see below: Skin Exam 1. EPIDERMAL INCLUSION CYST Left Scaphoid Fossa subcutaneous, mobile nodule WITHOUT central punctum. Patient was counseled regarding cysts. Although benign, cysts often slowly enlarge and can occasionally become inflamed. Discussed the only way to definitively diagnose the lesion would be to have it removed and tested. Discussed treatment options including observation vs. excision. Patient elected for observation. Notify office if lesion is enlarging or becomes symptomatic. Related Procedures Ambulatory referral to Dermatology 2. NEOPLASM OF UNSPECIFIED BEHAVIOR OF BONE, SOFT TISSUE, AND SKIN Right Anterior Neck Irregularly pigmented papule Lesion biopsy Type of biopsy: tangential Informed consent: discussed and consent obtained Informed consent comment: The risks and benefits of the biopsy were discussed. Risks include but are not limited to bleeding, infection, scarring, pain, and nerve damage. An opportunity to ask questions prior to the procedure was permitted and all questions were answered. Patient was prepped and draped in usual sterile fashion: area cleansed with alcohol. Anesthesia: the lesion was anesthetized in a standard fashion Anesthetic: 1% lidocaine w/ epinephrine 1-100,000 buffered w/ 8.4% NaHCO3 Instrument used: DermaBlade Hemostasis achieved with: electrodesiccation Outcome: patient tolerated procedure well Outcome comment: The specimen was placed in a prelabeled formalin container to be sent for pathology Post-procedure details: sterile dressing applied and wound care instructions given Post-procedure details comment: Emphasized need to contact clinic for any signs of infection, uncontrollable bleeding, or complications. Dressing type: bandage Additional details: Photo taken Amount of lidocaine used: 2.0 cc Specimen A - Dermatopathology exam Differential Diagnosis: melanoma vs. BCC vs. Angioma Check Margins: No Size of lesion: 0.8 x 0.7 cm Biopsy today, see procedure note. Next Visit: pending biopsy results documented in this encounter [facility] 12-19-2024 History of Present illness Narrative Associated Problem(s): Neoplasm of uncertain behavior Unclear etiology Will refer to dermatology Associated Problem(s): Morbid (severe) obesity due to excess calories (CMS/HCC) Discussed with patient their BMI (actual, verses recommended). We have also discussed lifestyle modifications: attempts to perform physical activity as chronic conditions allow, also to monitor dietary intake: increasing protein/fruits/veggies and lowering carb intake (unless contraindicated). Limit sodas, juices, and sugary drinks. Activity difficult d/t multiple co morbidities Couple weeks ago pt went into er for swollen testicles, he was told to take 3 daily of his lasix for a few days Pt has been taking two tablets of the lasix now Images from the original note were not included. Arianne Mcqueen is a 79 y.o. 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 HCPOA/Living Will: has forms at home, not completed Concerns: [facility] Er recently for scrotal swelling, increased water pill for a few days, then back to normal dose, this did help SUBJECTIVE: MEDICATIONS: Current Outpatient Medications Medication Instructions albuterol HFA 90 mcg/act inhaler 2 puffs, Every 6 hours PRN amLODIPine (NORVASC) 5 mg, Daily aspirin (ASPIRIN) 81 mg, Daily atorvastatin (LIPITOR) 40 mg, Oral, Nightly, Take 40 mg by mouth at bedtime Blood Glucose Monitoring Suppl (True Metrix Air Glucose Meter) w/Device kit 1 each, Daily Blood Glucose Monitoring Suppl (True Metrix Go Glucose Meter) w/Device kit No dose, route, or frequency recorded. carvedilol (COREG) 12.5 mg, Oral, 2 times daily with meals celecoxib (CELEBREX) 200 mg, Oral, Daily furosemide (LASIX) 40 mg, Daily glipiZIDE (GLUCOTROL) 2.5 mg, Oral, Daily glucose blood (True Metrix Blood Glucose Test) test strip USE DIRECTED to test BLOOD SUGAR DAILY isosorbide mononitrate ER (IMDUR) 30 mg, Daily Lancets 33G misc No dose, route, or frequency recorded. Lancets 33G misc 1 each, Does not apply, Daily spironolactone (ALDACTONE) 25 mg, Oral, Daily TraZODone & Diet Manage Prod (TRAZAMINE PO) 50 mg, Oral Trelegy Ellipta 100-62.5-25 MCG/ACT aerosol powder 1 puff, Daily ALLERGIES: No Known Allergies REVIEW OF SYMPTOMS: Review of Systems Constitutional: Negative for activity change, appetite change and unexpected weight change. HENT: Negative for ear pain, nosebleeds, sneezing, trouble swallowing and voice change. Eyes: Negative for pain, discharge and visual disturbance. Respiratory: Positive for cough, shortness of breath and wheezing. Negative for apnea and chest tightness. Cardiovascular: Positive for leg swelling. Gastrointestinal: Negative for abdominal distention, blood in stool, constipation and diarrhea. Genitourinary: Positive for scrotal swelling. Negative for decreased urine volume, difficulty urinating, dysuria and hematuria. Skin: Negative for color change and rash. Neurological: Negative for dizziness, tremors and seizures. [...] in his brother. OBJECTIVE: Visit Vitals BP 112/66 (BP Location: Left arm, Patient Position: Sitting, BP Cuff Size: Large adult) Pulse 59 Temp 97.8 F (Temporal) Resp 26 Wt 323 lb 6.4 oz SpO2 94% BMI 45.75 kg/m Smoking Status Former BSA 2.7 m [...] Normal pulses. Heart sounds: Normal heart sounds. No murmur heard. Pulmonary: Effort: Pulmonary effort is normal. Breath sounds: Wheezing present. Abdominal: General: Bowel sounds are normal. There is no distension. Palpations: Abdomen is soft. Tenderness: There is no abdominal tenderness. There is no guarding. Musculoskeletal: Cervical back: Neck supple. Right lower leg: Edema present. Left lower leg: Edema present. Lymphadenopathy: Cervical: No cervical adenopathy. Skin: General: Skin is warm and dry. Capillary Refill: Capillary refill takes 2 to 3 seconds. Findings: Lesion (right chin/neck area: 3inO3eq, color variation, w some dk black/brown, no ulceration noted) present. Neurological: General: No focal deficit present. Mental Status: He is alert. Psychiatric: Mood and Affect: Mood normal. Behavior: Behavior normal. Thought Content: Thought content normal. Judgment: Judgment normal. ASSESSMENT AND PLAN: No follow-ups on file. Problem List Items Addressed This Visit Chronic obstructive pulmonary disease, unspecified Current meds: trelegy inhaler and albuterol inhaler Follows with pulmonology Dr Riana ZELAYA (coronary artery disease) ([facility]) Continue current meds/dose Essential hypertension (Chronic) Please check blood pressure daily and record DASH diet Limit caffeine Take medication as directed Contact office if chest pain, pressure, dizziness, shortness of breath, swelling legs Recommend slow position changes Current meds: amlodipine, carvedilol, aldactone Encounter for subsequent annual wellness visit (AWV) in Medicare patient - Primary Reviewed Ht/Wt/BMI Recommend eye exam yearly Recommend dental exams twice a year Balance work/leisure activities Exercises is recommended most days of the week (appropriate as chronic conditions allow) Follow up yearly and prn Hand out on living will and health care POA given at his last AWV Morbid (severe) obesity due to excess calories ([facility]) Discussed with patient their BMI (actual, verses recommended). We have also discussed lifestyle modifications: attempts to perform physical activity as chronic conditions allow, also to monitor dietary intake: increasing protein/fruits/veggies and lowering carb intake (unless contraindicated). Limit sodas, juices, and sugary drinks. Activity difficult d/t multiple co morbidities Body mass index (BMI) 45.0-49.9, adult ([facility]) Type 2 diabetes mellitus with diabetic chronic kidney disease ([facility]) Check blood sugars daily, notify if <70 [...] meds: asa,statin, glipizide, cannot afford jardiance A1c 5.9% 12/19/24 Relevant Orders POCT glycosylated hemoglobin (Hb A1C) docked device (Completed) Neoplasm of uncertain behavior Unclear etiology Will refer to dermatology Relevant Orders Ambulatory referral to Dermatology Associated Problem(s): Encounter for subsequent annual wellness visit (AWV) in Medicare patient Reviewed Ht/Wt/BMI Recommend eye exam yearly Recommend dental exams twice a year Balance work/leisure activities Exercises is recommended most days of the week (appropriate as chronic conditions allow) Follow up yearly and prn Hand out on living will and health care POA given at his last AWV Associated Problem(s): Type 2 diabetes mellitus with diabetic chronic kidney disease ([facility]) Check blood sugars daily, notify if <70 [...] meds: asa,statin, glipizide, cannot afford jardiance A1c 5.9% 12/19/24 Associated Problem(s): Type 2 diabetes mellitus with diabetic peripheral angiopathy without gangrene ([facility]) Check blood sugars daily, notify if <70 [...] in carbohydrates, and simple sugars. Associated Problem(s): Essential hypertension Please check blood pressure daily and record DASH diet Limit caffeine Take medication as directed Contact office if chest pain, pressure, dizziness, shortness of breath, swelling legs Recommend slow position changes Current meds: amlodipine, carvedilol, aldactone Associated Problem(s): CAD (coronary artery disease) ([facility]) Continue current meds/dose Associated Problem(s): Chronic obstructive pulmonary disease, unspecified Current meds: trelegy inhaler and albuterol inhaler Follows with pulmonology Dr Woodruff documented in this encounter [facility] 12-19-2024 Instructions Teressa Sierra NP - 12/19/2024 4:30 PM EDT Referral to Dermatology: [facility] in [place], they should call you No medication dose changes A1c was good 5.9% no changes in diabetes meds documented in this encounter [facility] 10-03-2024 Note [place] [facility] - [facility] Subjective Arianne Mcqueen is a 79 [...] sternal region Chronic diastolic congestive heart failure ([facility]/HCC) COVID-19 Hyperglycemia Metabolic syndrome MGUS (monoclonal gammopathy of unknown significance) Pericardial effusion Pneumonia, bacterial Solitary pulmonary nodule Arthritis of right hip Bilateral lower extremity edema Constipation COPD (chronic obstructive pulmonary disease) ([facility]) Encounter for subsequent annual wellness visit (AWV) in Medicare patient Hearing decreased Hypercholesterolemia Hyperpigmentation Iron deficiency Lymphedema Lymphorrhea Myocardial infarction ([facility]/HCC) Nicotine dependence Osteoarthritis of both knees Papillomatosis Sleep apnea Morbid obesity (CMS/HCC) Venous stasis ulcer of right lower extremity ([facility]/HCC) Wound cellulitis Diabetes mellitus, type II ([facility]/HCC) [facility] (current) use of inhaled steroids Ulcer of lower extremity ([facility]/HCC) Aortic ectasia, unspecified site ([facility]/HCC) Body mass index (BMI) 45.0-49.9, adult ([facility]) Chronic kidney disease, stage 3a (CMS/HCC) Type 2 diabetes mellitus with diabetic chronic kidney disease ([facility]/HCC) Type 2 diabetes mellitus with diabetic peripheral angiopathy without gangrene ([facility]/HCC) 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 His initial investigation was negative. [...] In August 2021 he was admitted to [facility] and then transferred to [facility] due to COVID infection and [...] revascularize right coronary (more content not included)... 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 He does not see a maturity checker.Eye exam is not current. Hypertension This is [...] (KEFLEX) 500 mg, 2 times daily Drug Roxana Unilet Lancets 33G misc 1 each, Other, [...] a year Chronic obstructive pulmonary disease, unspecified (CMS/HCC) Current [...] carvedilol, aldactone Chronic diastolic (congestive) heart failure (CMS/HCC) Follows with [facility] Current meds: asa, statin, b fitz, imdur, aldactone, amlodipine Atherosclerosis of greenville coronary artery 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 pectoris (CMS/HCC) Current meds: asa, statin, b fitz, imdur, aldactone, Cardiology: [facility] [place] Morbid (severe) obesity due to excess calories (CMS/HCC) Discussed with patient their BMI (actual, verses recommended). We have also discussed lifestyle modifications: attempts to perform physical activity as chronic conditions allow, also to monitor dietary intake: increasing protein/fruits/veggies and lowering carb intake (unless contraindicated). Limit sodas, juices, and sugary drinks. 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 (CODE) ([facility]) Mixed hyperlipidemia ([facility]) Continue statin Check labs yearly and prn dose chagnes Type 2 diabetes mellitus with diabetic chronic kidney disease ([facility]) Check blood sugars daily, notify if <70 [...] mellitus with diabetic peripheral angiopathy without gangrene ([facility]) On asa, statin Stasis edema with ulcer of both lower extremities ([facility]) Diuretics, elevation, compression Associated Problem(s): Mixed hyperlipidemia ([facility]/HCC) Continue statin Check labs yearly and prn dose chagnes Associated Problem(s): Morbid (severe) obesity due to excess calories ([facility]) Discussed with patient their BMI (actual, verses recommended). We have also discussed lifestyle modifications: attempts to perform physical activity as chronic conditions allow, also to monitor dietary intake: increasing protein/fruits/veggies and lowering carb intake (unless contraindicated). Limit sodas, juices, and sugary drinks. Activity difficult d/t multiple co morbidities Associated Problem(s): Type 2 diabetes mellitus with diabetic chronic kidney disease ([facility]/HCC) Check blood sugars daily, notify if <70 [...] edema with ulcer of both lower extremities ([facility]/HCC) Diuretics, elevation, compression Associated Problem(s): Bilateral lower extremity edema Continue spironolactone script Elevate legs as much as possible Limit sodium and wear compression stockings Associated Problem(s): Chronic kidney disease, stage 3a (HCC) (CMS/HCC) Monitor labs yearly and prn Recommend adequate DM, HTN control, as well as heart failure Associated Problem(s): Type 2 diabetes mellitus with diabetic peripheral angiopathy without gangrene ([facility]/HCC) On asa, statin Associated Problem(s): Other ventricular [...] diastolic (congestive) heart failure (CMS/HCC) Follows with [facility] Current meds: asa, statin, b fitz, imdur, aldactone, amlodipine Associated Problem(s): Atherosclerosis of green[place] coronary artery 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 pectoris (CMS/HCC) Current meds: asa, statin, b fitz, imdur, aldactone, Cardiology: [facility] [place] Associated Problem(s): Chronic obstructive pulmonary disease, unspecified [...] in a year I did contact the [facility] Sleep lab ext [phone] to find out about scheduling the patient to see about an updated PAP machine: voicemail left at 16:20 on 09/27/24 documented in this encounter [facility] 09-27-2024 Instructions Teressa Sierra NP - 09/27/2024 2:00 PM EST Sleep apnea: I will call [facility] to see about getting you into see Dr Amado Wounds: continue with wound care and home health documented in this encounter [facility] 06-01-2024 History of Present illness Narrative Associated Problem(s): Diabetes mellitus, type II ([facility]) Cannot afford ozempic, although his sugars seem [...] sugars. Associated Problem(s): CAD (coronary artery disease) ([facility]) Continue current meds/dose Associated Problem(s): Essential hypertension At goal no dose changes Associated Problem(s): COPD (chronic obstructive pulmonary disease) ([facility]) Continue with dr woodruff Needs a refill of trelegy , he needs to contact them Associated Problem(s): Sleep apnea Non compliant with PAP use, machine is broke , difficulty finding DME who takes his insurance I did leave a VM on Sleep [facility] regarding this for them to assist Pt is seeing a interior specialist for his legs. Pt had a [...] no compliance problems. Hypertensive end-organ damage includes CAD/AK and PVD. Diabetes He presents for his [...] being taken. He does not see a maturity checker.Eye exam is current. SUBJECTIVE: MEDICATIONS: Current Outpatient [...] (CMS/HCC) Constipation COPD (chronic obstructive pulmonary disease) ([facility]/HCC) Diabetes mellitus, type II (CMS/HCC) Hearing decreased Heart disease Hip pain, right Hypercholesterolemia (CMS/HCC) Hypertension (CMS/HCC) Iron deficiency Myocardial infarction ([facility]/HCC) Osteoarthritis of both knees, unspecified osteoarthritis type [...] to assist COPD (chronic obstructive pulmonary disease) ([facility]) Continue with dr woodruff Needs a refill of trelegy , he needs to contact them CAD (coronary artery disease) ([facility]) Continue current meds/dose Diabetes mellitus, type II ([facility]) - Primary Cannot afford ozempic, although his [...] Relevant Orders PSA documented in this encounter [facility] 03-09-2024 Note Cardiovascular Medic [facility] SUBJECTIVE Chief Complaint Patient [...] sternal region Chronic diastolic congestive heart failure (CMS/[facility]) COVID-19 Hyperglycemia Metabolic syndrome MGUS (monoclonal gammopathy of unknown significance) Pericardial effusion Pneumonia, bacterial Solitary pulmonary nodule Arthritis of right hip Bilateral lower extremity edema Constipation COPD (chronic obstructive pulmonary disease) ([facility]) Encounter for subsequent annual wellness visit (AWV) in Medicare patient Hearing decreased Hypercholesterolemia Hyperpigmentation Iron deficiency Lymphedema Lymphorrhea Myocardial infarction ([facility]) Nicotine dependence Osteoarthritis of both knees Papillomatosis Sleep apnea Morbid obesity ([facility]) Venous stasis ulcer of right lower extremity ([facility]) Wound cellulitis Diabetes mellitus, type II ([facility]) intermediate frame tender (current) use of inhaled steroids Ulcer of lower extremity ([facility]) Past Medical History: Diagnosis Date CHF (congestive heart failure) ([facility]) Coronary artery disease Hyperlipidemia Hypertension Pericardial effusion [...] Venous stasis skin (more content not included)... [facility] 12-17-2023 Note Cardiovascular Medic [facility] SUBJECTIVE Chief Complaint Patient [...] sternal region Chronic diastolic congestive heart failure ([facility]/HCC) COVID-19 Hyperglycemia Metabolic syndrome MGUS (monoclonal gammopathy of unknown significance) Pericardial effusion Pneumonia, bacterial Solitary pulmonary nodule Arthritis of right hip Bilateral lower extremity edema Constipation COPD (chronic obstructive pulmonary disease) ([facility]) Encounter for subsequent annual wellness visit (AWV) in Medicare patient Hearing decreased Hypercholesterolemia Hyperpigmentation Iron deficiency Lymphedema Lymphorrhea Myocardial infarction ([facility]/HCC) Nicotine dependence Osteoarthritis of both knees Papillomatosis Sleep apnea Morbid obesity ([facility]) Venous stasis ulcer of right lower extremity ([facility]) Wound cellulitis Past Medical History: Diagnosis Date CHF (congestive heart failure) ([facility]) Coronary artery disease Hyperlipidemia Hypertension Pericardial effusion [...] le+ Pitting Edema (more content not included)... [facility] 12-17-2023 Note Patient here for 6 m o follow up CAD, hypertension, and chronic diastolic heart failure. Had SILVIA's last month. Denies chest pain, palpitations, and lightheadedness/syncope. Gets very winded with exertion. He does see Dr. Wodoruff for this. Seeing wound care for his LE. Had labs drawn this morning. Review of Systems Constitutional: Positive for malaise/fatigue. Cardiovascular: Positive for dyspnea on exertion and leg swelling. Skin: Positive for dry skin and poor wound healing. All other systems reviewed and are negative. [facility] 09-03-2022 Evaluation note Encounter Date Diagnosis [...] been reviewed. Hospital notes from the [facility] from his prior admission on [...] ago and was just admitted to [facility] with pneumonia a couple of [...] as documented in the electronic medical record. [facility] Other 09-15-2022 NotePROCEDURE: XR HIP RT 2 3V WO PELVIS HISTORY: Pain in right hip joint COMPARISON: XR pelvis 09/15/2021 FINDINGS: BONES:Complete loss of the joint space with [id number] articulation. Large periarticular degenerative osteophytes. No fracture, dislocation, bone lesion. SOFT TISSUES:No visible soft tissue swelling. EFFUSION:None visible. OTHER: Atherosclerotic disease. IMPRESSION: 1. 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 2. No appreciable acute abnormality. Electronically authenticated by: NOREEN KELLY Date: 2022-05-08 10:48[facility]10-28-2021 NoteThe [facility] 04-23-2021 NoteThe [facility]02-18-2021 NotePatient Outreach (COVAMN) ARIANNE MCQUEEN ([id number]) 1945 M Date Time Provider Department 10/11/20 TERRANCE CABALLERO During your visit today, we recorded the following information about you: Allergies As of Date: 10/11/2020 (No Known Allergies) Date Reviewed: 04/21/2020 Reviewed by: Willie Sotelo - Fully Assessed Order(s):SARS-COVID VACCINE 1ST DOSE APPT [[id number]] Order #: [id number] FUTURE Prescriptions as of 10/11/2020 Sig: TRAZODONE [...] [I73.9] 08/19/2012 Letter Text Encounter Status:Closed by Telx, PRODUSER on 10/15/20[facility] Evaluation note* Diagnosis Type 2 diabetes mellitus without complication, without long-term current use of insulin (CMS/HCC)- Primary Chronic kidney disease, stage 3a (HCC) (CMS/HCC) Mixed hyperlipidemia (CMS/HCC) Mixed hyperlipidemia 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 (CMS/HCC) Essential hypertension Unspecified essential hypertension Prostate cancer screening Special screening for malignant neoplasm of prostate Obstructive sleep apnea syndrome Obstructive sleep apnea (adult) (pediatric) Chronic obstructive pulmonary disease, unspecified COPD type (CMS/HCC) Venous stasis of both lower extremities Morbid (severe) obesity due to excess calories (CMS/HCC) Body mass index (BMI) 45.0-49.9, adult (CMS/HCC) documented in this encounter [facility] HealthcareEvaluation note* Diagnosis Type 2 diabetes mellitus [...] apnea (adult) (pediatric) 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 (CMS/HCC) Essential hypertension Unspecified essential hypertension Type 2 diabetes mellitus without complication, without long-term current use of insulin (CMS/HCC) Chronic diastolic congestive heart failure (CMS/[facility]) Venous stasis of both lower extremities Bilateral lower extremity edema Morbid obesity (CMS/HCC) Morbid obesity Type 2 diabetes mellitus without complication, without long-term current use of insulin ([facility]/HCC)- Primary Type 2 diabetes mellitus with diabetic chronic kidney disease (CMS/HCC) Chronic kidney disease, stage 3a (HCC) ([facility]) Morbid (severe) obesity due to excess calories (CMS/[facility]) Body mass index (BMI) 45.0-49.9, adult ([facility]) Type 2 diabetes mellitus with other skin ulcer (CODE) ([facility]) Non-pressure chronic ulcer of unspecified part of unspecified lower leg with unspecified severity ([facility]) Peripheral vascular disease, unspecified ([facility]) Peripheral vascular disease, unspecified Other ventricular tachycardia ([facility]) 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 (CODE) ([facility]) Aortic ectasia, unspecified site ([facility]) Aortic ectasia, unspecified site Venous stasis of both lower extremities Essential hypertension Unspecified essential hypertension Type 2 diabetes mellitus without complication, without long-term current use of insulin ([facility])- Primary Chronic kidney disease, stage 3a (HCC) ([facility]) Mixed hyperlipidemia ([facility]/HCC) Mixed hyperlipidemia 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 (CMS/HCC) Essential hypertension Unspecified essential hypertension Prostate cancer screening Special screening for malignant neoplasm of prostate Obstructive sleep apnea syndrome Obstructive sleep apnea (adult) (pediatric) Chronic obstructive pulmonary disease, unspecified COPD type ([facility]) Venous stasis of both lower extremities Morbid (severe) obesity due to excess calories ([facility]) Body mass index (BMI) 45.0-49.9, adult ([facility]) 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 (CMS/HCC)- Primary Atherosclerosis of green[place] coronary artery 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 pectoris (CMS/HCC) Mixed hyperlipidemia (CMS/HCC) Mixed hyperlipidemia documented in this encounter [facility] HealthcareEvaluation note* Diagnosis Type 2 diabetes mellitus without complication, without long-term current use of insulin ([facility])- Primary Essential hypertension Unspecified essential hypertension Varicose veins of bilateral lower extremities with pain Morbid obesity (CMS/HCC) Morbid obesity Encounter for subsequent annual wellness visit (AWV) in Medicare patient- Primary Chronic obstructive pulmonary disease, unspecified COPD type (CMS/HCC) Obstructive sleep apnea syndrome Obstructive sleep apnea (adult) (pediatric) 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 (CMS/HCC) Essential hypertension [...] (CMS/HCC) Mixed hyperlipidemia 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 (CMS/HCC) Essential hypertension Unspecified essential hypertension Prostate cancer screening Special screening for malignant neoplasm of prostate Obstructive sleep apnea syndrome Obstructive sleep apnea (adult) (pediatric) Chronic obstructive pulmonary disease, unspecified COPD type (CMS/HCC) Venous stasis of both lower extremities Morbid (severe) obesity due to excess calories (CMS/HCC) Body mass index (BMI) 45.0-49.9, adult (CMS/HCC) Bilateral primary osteoarthritis of knee 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 (CMS/HCC) documented in this encounter [facility] HealthcareEvaluation note* Diagnosis Type 2 diabetes mellitus [...] apnea (adult) (pediatric) 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 (CMS/HCC) Essential hypertension [...] (CMS/HCC) Mixed hyperlipidemia 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 (CMS/HCC) Essential hypertension [...] (HCC) (CMS/HCC)- Primary documented in this encounter [facility] HealthcareEvaluation note* Diagnosis Type 2 diabetes mellitus [...] apnea (adult) (pediatric) 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 (CMS/HCC) Essential hypertension [...] (CMS/HCC) Mixed hyperlipidemia 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 (CMS/HCC) Essential hypertension [...] without complications (CMS/HCC) documented in this encounter [facility] HealthcareEvaluation note* Diagnosis Type 2 diabetes mellitus [...] apnea (adult) (pediatric) 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 (CMS/HCC) Essential hypertension [...] (CMS/HCC) Mixed hyperlipidemia 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 (CMS/HCC) Essential hypertension Unspecified essential hypertension Prostate cancer screening Special screening for malignant neoplasm of prostate Obstructive sleep apnea syndrome Obstructive sleep apnea (adult) (pediatric) Chronic obstructive pulmonary disease, unspecified COPD type (CMS/HCC) Venous stasis of both lower extremities Morbid (severe) obesity due to excess calories (CMS/HCC) Body mass index (BMI) 45.0-49.9, adult (CMS/[facility]) Anemia, unspecified documented in this encounter [facility] HealthcareEvaluation note* Diagnosis Type 2 diabetes mellitus [...] apnea (adult) (pediatric) 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 (CMS/HCC) Essential hypertension [...] Morbid (severe) obesity due to excess calories (CMS/[facility]) Body mass index (BMI) 45.0-49.9, adult (CMS/HCC) [...] (CMS/HCC) Mixed hyperlipidemia 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 (CMS/HCC) Essential hypertension Unspecified essential hypertension Prostate cancer screening Special screening for malignant neoplasm of prostate Obstructive sleep apnea syndrome Obstructive sleep apnea (adult) (pediatric) Chronic obstructive pulmonary disease, unspecified COPD type (CMS/HCC) Venous stasis of both lower extremities Morbid (severe) obesity due to excess calories (CMS/HCC) Body mass index (BMI) 45.0-49.9, adult (CMS/HCC) Type 2 diabetes mellitus without complication, without long-term current use of insulin (CMS/HCC) documented in this encounter [facility] HealthcareEvaluation note* Diagnosis Type 2 diabetes mellitus [...] apnea (adult) (pediatric) 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 (CMS/HCC) Essential hypertension [...] (CMS/HCC) Mixed hyperlipidemia 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 (CMS/HCC) Essential hypertension Unspecified essential hypertension Prostate cancer screening Special screening for malignant neoplasm of prostate Obstructive sleep apnea syndrome Obstructive sleep apnea (adult) (pediatric) Chronic obstructive pulmonary disease, unspecified COPD type (CMS/HCC) Venous stasis of both lower extremities Morbid (severe) obesity due to excess calories (CMS/[facility]) Body mass index (BMI) 45.0-49.9, adult ([facility]) Localized edema Edema documented in this encounter [facility] HealthcareEvaluation note* Diagnosis Type 2 diabetes mellitus without complication, without long-term current use of insulin (CMS/HCC)- Primary Essential hypertension Unspecified essential hypertension Varicose veins of bilateral lower extremities with pain Morbid obesity ([facility]) Morbid obesity Encounter for subsequent annual wellness visit (AWV) in Medicare patient- Primary Chronic obstructive pulmonary disease, unspecified COPD type (CMS/HCC) Obstructive sleep apnea syndrome Obstructive sleep apnea (adult) (pediatric) 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 (CMS/HCC) Essential hypertension [...] (CMS/HCC) Chronic kidney disease, stage 3a (HCC) (CMS/[facility]) Morbid (severe) obesity due to excess calories ([facility]) Body mass index (BMI) 45.0-49.9, adult ([facility]) Type 2 diabetes mellitus with other skin ulcer (CODE) ([facility]) Non-pressure chronic ulcer of unspecified part of unspecified lower leg with unspecified severity (CMS/[facility]) Peripheral vascular disease, unspecified (CMS/[facility]) Peripheral vascular disease, unspecified Other ventricular tachycardia [...] (CMS/HCC) Mixed hyperlipidemia 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 (CMS/HCC) Essential hypertension [...] diastolic (congestive) heart failure (CMS/HCC) Atherosclerosis of [place] coronary artery 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 pectoris (CMS/HCC) Essential hypertension Unspecified essential hypertension Chronic kidney disease, stage 3a (HCC) (CMS/HCC) Bilateral lower extremity edema Stasis edema with ulcer of both lower extremities (CMS/HCC) Mixed hyperlipidemia (CMS/HCC) Mixed hyperlipidemia Stasis dermatitis 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 hypertension (CMS/HCC) 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 (CMS/HCC) documented in this encounter [facility] HealthcareEvaluation note* Diagnosis Type 2 diabetes mellitus [...] apnea (adult) (pediatric) 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 (CMS/HCC) Essential hypertension Unspecified essential hypertension Type 2 diabetes mellitus without complication, without long-term current use of insulin (CMS/[facility]) Chronic diastolic congestive heart failure (CMS/[facility]) Venous stasis of both lower extremities Bilateral lower extremity edema Morbid obesity (CMS/HCC) Morbid obesity Type 2 diabetes mellitus without complication, without long-term current use of insulin (CMS/HCC)- Primary Type 2 diabetes mellitus with diabetic chronic kidney disease (CMS/[facility]) Chronic kidney disease, stage 3a (HCC) (CMS/[facility]) Morbid (severe) obesity due to excess calories (CMS/[facility]) Body mass index (BMI) 45.0-49.9, adult ([facility]) Type 2 diabetes mellitus with other skin ulcer (CODE) ([facility]) Non-pressure chronic ulcer of unspecified part of unspecified lower leg with unspecified severity (CMS/[facility]) Peripheral vascular disease, unspecified (CMS/[facility]) Peripheral vascular disease, unspecified Other ventricular tachycardia (CMS/[facility]) 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 (CODE) ([facility]) Aortic ectasia, unspecified site (CMS/[facility]) Aortic ectasia, unspecified site Venous stasis of both lower extremities Essential hypertension Unspecified essential hypertension Type 2 diabetes mellitus without complication, without long-term current use of insulin (CMS/HCC)- Primary Chronic kidney disease, stage 3a (HCC) (CMS/HCC) Mixed hyperlipidemia ([facility]) Mixed hyperlipidemia 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 (CMS/HCC) Essential hypertension Unspecified essential hypertension Prostate cancer screening Special screening for malignant neoplasm of prostate Obstructive sleep apnea syndrome Obstructive sleep apnea (adult) (pediatric) Chronic obstructive pulmonary disease, unspecified COPD type (CMS/HCC) Venous stasis of both lower extremities Morbid (severe) obesity due to excess calories ([facility]) Body mass index (BMI) 45.0-49.9, adult ([facility]) Obstructive sleep apnea syndrome- Primary Obstructive sleep apnea (adult) (pediatric) Type 2 diabetes mellitus with diabetic chronic kidney disease ([facility]/HCC) 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 (CODE) (CMS/HCC) Morbid (severe) obesity due to excess calories (CMS/HCC) Body mass index (BMI) 45.0-49.9, adult (CMS/HCC) Type 2 diabetes mellitus with diabetic peripheral angiopathy without gangrene (CMS/HCC) Other ventricular tachycardia (CMS/HCC) Chronic obstructive pulmonary disease, unspecified (CMS/HCC) Chronic diastolic (congestive) heart failure (CMS/HCC) Atherosclerosis of [place] coronary artery 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 pectoris (CMS/HCC) Essential hypertension Unspecified essential hypertension Chronic kidney disease, stage 3a (HCC) (CMS/HCC) Bilateral lower extremity edema Stasis edema with ulcer of both lower extremities (CMS/HCC) Mixed hyperlipidemia (CMS/HCC) Mixed hyperlipidemia Stasis dermatitis 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 hypertension (CMS/HCC) 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 (CMS/HCC) Type 2 diabetes mellitus without complications (CMS/HCC) documented in this encounter [facility] HealthcareEvaluation note* Diagnosis Type 2 diabetes mellitus without complication, without long-term current use of insulin- Primary Essential hypertension Unspecified essential hypertension Varicose veins of bilateral lower extremities with pain Morbid obesity (CMS/HCC) Morbid obesity Encounter for subsequent annual wellness visit (AWV) in Medicare patient- Primary Chronic obstructive pulmonary disease, unspecified COPD type (CMS/HCC) Obstructive sleep apnea syndrome Obstructive sleep apnea (adult) (pediatric) 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 (CMS/HCC) Essential hypertension Unspecified essential hypertension Type 2 diabetes mellitus without complication, without long-term current use of insulin Chronic diastolic congestive heart failure (CMS/HCC) Venous stasis of both lower extremities Bilateral lower extremity edema Morbid obesity (CMS/HCC) Morbid obesity Type 2 diabetes mellitus without complication, without long-term current use of insulin- Primary Type 2 diabetes mellitus with diabetic chronic kidney disease (CMS/HCC) Chronic kidney disease, stage 3a (HCC) (CMS/HCC) Morbid (severe) obesity due to excess calories (CMS/HCC) Body mass index (BMI) 45.0-49.9, adult ([facility]) Type 2 diabetes mellitus with other skin ulcer (CODE) Non-pressure chronic ulcer of unspecified part of unspecified lower leg with unspecified severity (CMS/HCC) Peripheral vascular disease, unspecified (CMS/HCC) Peripheral vascular disease, unspecified Other ventricular tachycardia 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 (CODE) Aortic ectasia, unspecified site (CMS/HCC) Aortic ectasia, unspecified site Venous stasis of both lower extremities Essential hypertension Unspecified essential hypertension Type 2 diabetes mellitus without complication, without long-term current use of insulin- Primary Chronic kidney disease, stage 3a (HCC) (CMS/HCC) Mixed hyperlipidemia (CMS/HCC) Mixed hyperlipidemia 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 (CMS/HCC) Essential hypertension Unspecified essential hypertension Prostate cancer screening Special screening for malignant neoplasm of prostate Obstructive sleep apnea syndrome Obstructive sleep apnea (adult) (pediatric) Chronic obstructive pulmonary disease, unspecified COPD type (CMS/[facility]) Venous stasis of both lower extremities Morbid (severe) obesity due to excess calories (CMS/[facility]) Body mass index (BMI) 45.0-49.9, adult ([facility]) Obstructive sleep apnea syndrome- Primary Obstructive sleep apnea (adult) (pediatric) Type 2 diabetes mellitus with diabetic chronic kidney disease ([facility]) 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 (CODE) Morbid (severe) obesity due to excess calories ([facility]) Body mass index (BMI) 45.0-49.9, adult ([facility]) Type 2 diabetes mellitus with diabetic peripheral angiopathy without gangrene ([facility]) Other ventricular tachycardia Chronic obstructive pulmonary disease, unspecified Chronic diastolic (congestive) heart failure Atherosclerosis of [place] coronary artery 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 pectoris (CMS/[facility]) Essential hypertension Unspecified essential hypertension Chronic kidney disease, stage 3a (HCC) (CMS/HCC) Bilateral lower extremity edema Stasis edema with ulcer of both lower extremities (CMS/HCC) Mixed hyperlipidemia (CMS/HCC) Mixed hyperlipidemia Stasis dermatitis 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 hypertension (CMS/[facility]) 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 (CMS/HCC) Chronic obstructive pulmonary disease, unspecified COPD type (CMS/HCC)- Primary 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 (CMS/HCC) Essential hypertension Unspecified essential hypertension Type 2 diabetes mellitus with stage 3 chronic kidney disease, without long-term current use of insulin, unspecified whether stage 3a or 3b CKD (HCC) (CMS/HCC) MGUS (monoclonal gammopathy of unknown significance) Monoclonal paraproteinemia Encounter for subsequent annual wellness visit (AWV) in Medicare patient Bilateral primary osteoarthritis of knee 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 ([facility]) documented in this encounter [facility] HealthcareEvaluation note* Diagnosis Type 2 diabetes mellitus without complication, without long-term current use of insulin- Primary Essential hypertension Unspecified essential hypertension Varicose veins of bilateral lower extremities with pain Morbid obesity ([facility]) Morbid obesity Encounter for subsequent annual wellness visit (AWV) in Medicare patient- Primary Chronic obstructive pulmonary disease, unspecified COPD type ([facility]/HCC) Obstructive sleep apnea syndrome Obstructive sleep apnea (adult) (pediatric) 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 ([facility]) Essential hypertension Unspecified essential hypertension Type 2 diabetes mellitus without complication, without long-term current use of insulin Chronic diastolic congestive heart failure ([facility]) Venous stasis of both lower extremities Bilateral lower extremity edema Morbid obesity ([facility]) Morbid obesity Type 2 diabetes mellitus without complication, without long-term current use of insulin- Primary Type 2 diabetes mellitus with diabetic chronic kidney disease ([facility]) Chronic kidney disease, stage 3a (HCC) ([facility]) Morbid (severe) obesity due to excess calories ([facility]) Body mass index (BMI) 45.0-49.9, adult ([facility]) Type 2 diabetes mellitus with other skin ulcer (CODE) Non-pressure chronic ulcer of unspecified part of unspecified lower leg with unspecified severity ([facility]) Peripheral vascular disease, unspecified ([facility]) Peripheral vascular disease, unspecified Other ventricular tachycardia 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 (CODE) Aortic ectasia, unspecified site (CMS/HCC) Aortic ectasia, unspecified site Venous stasis of both lower extremities Essential hypertension Unspecified essential hypertension Type 2 diabetes mellitus without complication, without long-term current use of insulin- Primary Chronic kidney disease, stage 3a (HCC) (CMS/HCC) Mixed hyperlipidemia (CMS/HCC) Mixed hyperlipidemia 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 (CMS/HCC) Essential hypertension Unspecified essential hypertension Prostate cancer screening Special screening for malignant neoplasm of prostate Obstructive sleep apnea syndrome Obstructive sleep apnea (adult) (pediatric) Chronic obstructive pulmonary disease, unspecified COPD type (CMS/HCC) Venous stasis of both lower extremities Morbid (severe) obesity due to excess calories (CMS/HCC) Body mass index (BMI) 45.0-49.9, adult ([facility]) Obstructive sleep apnea syndrome- Primary Obstructive sleep apnea (adult) (pediatric) Type 2 diabetes mellitus with diabetic chronic kidney disease (CMS/HCC) 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 (CODE) Morbid (severe) obesity due to excess calories (CMS/HCC) Body mass index (BMI) 45.0-49.9, adult ([facility]) Type 2 diabetes mellitus with diabetic peripheral angiopathy without gangrene (CMS/HCC) Other ventricular tachycardia Chronic obstructive pulmonary disease, unspecified Chronic diastolic (congestive) heart failure Atherosclerosis of [place] coronary artery 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 pectoris (CMS/HCC) Essential hypertension Unspecified essential hypertension Chronic kidney disease, stage 3a (HCC) (CMS/HCC) Bilateral lower extremity edema Stasis edema with ulcer of both lower extremities (CMS/HCC) Mixed hyperlipidemia ([facility]) Mixed hyperlipidemia Stasis dermatitis 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 hypertension ([facility]) 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 ([facility]) Encounter for subsequent annual wellness visit (AWV) in Medicare patient- Primary Chronic obstructive pulmonary disease, unspecified COPD type (CMS/HCC) 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 (CMS/HCC) Essential hypertension Unspecified essential hypertension Type 2 diabetes mellitus with stage 3 chronic kidney disease, without long-term current use of insulin, unspecified whether stage 3a or 3b CKD (HCC) ([facility]) Neoplasm of uncertain behavior Neoplasm of uncertain behavior, site unspecified Body mass index (BMI) 45.0-49.9, adult ([facility]) Morbid (severe) obesity due to excess calories ([facility]) documented in this encounter [facility] HealthcareEvaluation note* Diagnosis Type 2 diabetes mellitus without complication, without long-term current use of insulin- Primary Essential hypertension Unspecified essential hypertension Varicose veins of bilateral lower extremities with pain Morbid obesity (CMS/[facility]) Morbid obesity Encounter for subsequent annual wellness visit (AWV) in Medicare patient- Primary Chronic obstructive pulmonary disease, unspecified COPD type (CMS/HCC) Obstructive sleep apnea syndrome Obstructive sleep apnea (adult) (pediatric) 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 (CMS/[facility]) Essential hypertension Unspecified essential hypertension Type 2 diabetes mellitus without complication, without long-term current use of insulin Chronic diastolic congestive heart failure ([facility]) Venous stasis of both lower extremities Bilateral lower extremity edema Morbid obesity ([facility]) Morbid obesity Type 2 diabetes mellitus without complication, without long-term current use of insulin- Primary Type 2 diabetes mellitus with diabetic chronic kidney disease ([facility]) Chronic kidney disease, stage 3a (HCC) ([facility]) Morbid (severe) obesity due to excess calories ([facility]) Body mass index (BMI) 45.0-49.9, adult ([facility]) Type 2 diabetes mellitus with other skin ulcer (CODE) Non-pressure chronic ulcer of unspecified part of unspecified lower leg with unspecified severity ([facility]) Peripheral vascular disease, unspecified ([facility]) Peripheral vascular disease, unspecified Other ventricular tachycardia 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 (CODE) Aortic ectasia, unspecified site ([facility]) Aortic ectasia, unspecified site Venous stasis of both lower extremities Essential hypertension Unspecified essential hypertension Type 2 diabetes mellitus without complication, without long-term current use of insulin- Primary Chronic kidney disease, stage 3a (HCC) ([facility]) Mixed hyperlipidemia ([facility]) Mixed hyperlipidemia 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 ([facility]) Essential hypertension Unspecified essential hypertension Prostate cancer screening Special screening for malignant neoplasm of prostate Obstructive sleep apnea syndrome Obstructive sleep apnea (adult) (pediatric) Chronic obstructive pulmonary disease, unspecified COPD type ([facility]) Venous stasis of both lower extremities Morbid (severe) obesity due to excess calories ([facility]) Body mass index (BMI) 45.0-49.9, adult ([facility]) Obstructive sleep apnea syndrome- Primary Obstructive sleep apnea (adult) (pediatric) Type 2 diabetes mellitus with diabetic chronic kidney disease ([facility]) 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 (CODE) Morbid (severe) obesity due to excess calories ([facility]) Body mass index (BMI) 45.0-49.9, adult ([facility]) Type 2 diabetes mellitus with diabetic peripheral angiopathy without gangrene ([facility]) Other ventricular tachycardia Chronic obstructive pulmonary disease, unspecified Chronic diastolic (congestive) heart failure Atherosclerosis of [place] coronary artery 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 pectoris ([facility]/HCC) Essential hypertension Unspecified essential hypertension Chronic kidney disease, stage 3a (HCC) ([facility]) Bilateral lower extremity edema Stasis edema with ulcer of both lower extremities ([facility]/HCC) Mixed hyperlipidemia ([facility]/HCC) Mixed hyperlipidemia Stasis dermatitis 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 hypertension ([facility]/HCC) 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 ([facility]) Encounter for subsequent annual wellness visit (AWV) in Medicare patient- Primary Chronic obstructive pulmonary disease, unspecified COPD type ([facility]) 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 ([facility]) Essential hypertension Unspecified essential hypertension Type 2 diabetes mellitus with stage 3 chronic kidney disease, without long-term current use of insulin, unspecified whether stage 3a or 3b CKD (HCC) ([facility]) Neoplasm of uncertain behavior Neoplasm of uncertain behavior, site unspecified Body mass index (BMI) 45.0-49.9, adult ([facility]) Morbid (severe) obesity due to excess calories ([facility]) Epidermal inclusion cyst- Primary Sebaceous cyst Neoplasm of unspecified behavior of bone, soft tissue, and skin documented in this encounter [facility]ative - Reported* Type Description Date Medical History diabetes mallitus Medical History HTN Surgical History knee replacement 2010 [facility] - [facility] Reviews & Information Other Reason for visit Narrative* Consultation (Routine) - Closed Specialty Diagnoses / Procedures Referred By Colby t Referred To Contact Dermatology Diagnoses Neoplasm of uncertain behavior Procedures MO OFFICE/OUTPATIENT [facility] 60 MINUTES Teressa Sierra NP [address] [place] [address] Phone: tel: fax: Maribeth Yoo, APPLICATION DEVELOPER MANAGER-VOLUNTEER SERVICES DIRECTOR [address] [place] [address] Phone: tel: fax: Referral ID Status Reason Start Date Expiration Date V isits Requested Visits Authorized [id number] Closed Specialty Services Required 12/19/2024 06/17/2025 1 1 [facility] Summary Purpose Family History No Family History [...] content) DATE CREATED AUTHOR 09/01/[address] [facility] DATE CREATED AUTHOR AUTHOR'S ORGANIZ ATION 04/06/[address] [facility] DATE CREATED AUTHOR AUTHOR'S ORGANIZ ATION 11/04/2022 [facility] DATE CREATED AUTHOR AUTHOR'S ORGANIZ ATION 11/12/2023 [facility] DATE CREATED AUTHOR AUTHOR'S ORGANIZ ATION 10/05/2024 [facility] DATE CREATED AUTHOR AUTHOR'S ORGANIZ ATION 12/20/2024 [facility] dical Specialists EPIC REASON FOR VISIT (unrecogniz ed section and content) Reason Onset Date Comments Med Refill 06/13/2024 Reason Comments Med Refill Reason Comments Diabetes Reason Comments Medicare Annual Wellness Visit Initial Care Teams (unrecognized sec tion and content) Flight Line Service Attendant Relationship Specialty Start Date End Date Mal Barnes MD [address] [place], [place] [id number] PCP - External PCP Family Medicine 04/24/23 Gilberto Stockton MD [address] [place] [address] PCP - Devoted 08/24/23 Gilberto Stockton MD [address] [place] [address] PCP - General Family Medicine 03/09/24 Teressa Sierra NP [address] [place] [address] Nurse Practitioner Family Medicine 09/09/23 Flight Line Service Attendant Relationship Specialty Start Date End Date Mal Barnes MD [address] [place] [address] PCP - External PCP Family Medicine 04/24/23 Gilberto Stockton MD [address] [place] [address] PCP - Devoted 08/24/23 Gilberto Stockton MD [address] [place] [address] PCP - General Family Medicine 03/09/24 Teressa Sierra NP [address] [place] [address] Nurse Practitioner Family Medicine 09/09/23 Flight Line Service Attendant Relationship Specialty Start Date End Date Mal Barnes MD [address] [facility] [address] PCP - External PCP Family Medicine 04/24/23 Gilberto Stockton MD [address] [place] [address] PCP - Devoted 08/24/23 Gilberto Stockton MD [address] [place] [address] PCP - General Family Medicine 03/09/24 Teressa Sierra NP [address] [place] [address] Nurse Practitioner Family Medicine 09/09/23 Flight Line Service Attendant Relationship Specialty Start Date End Date Mal Barnes MD [address] [place] [address] PCP - External PCP Family Medicine 04/24/23 Gilberto Stockton MD [address] [place] [address] PCP - Devoted 08/24/23 Gilberto Stockton MD [address] [place] [address] PCP - General Family Medicine 03/09/24 Teressa Sierra NP [address] [place] [address] Nurse Practitioner Family Medicine 09/09/23 Flight Line Service Attendant Relationship Specialty Start Date End Date Mal Barnes MD [address] [place] [address] PCP - External PCP Family Medicine 04/24/23 Gilberto Stockton MD [address] [place] [address] PCP - Devoted 08/24/23 Gilberto Stockton MD [address] [place] [address] PCP - General Family Medicine 03/09/24 Teressa Sierra NP [address] [place] [address] Nurse Practitioner Family Medicine 09/09/23 Flight Line Service Attendant Relationship Specialty Start Date End Date Mal Barnes MD [address] [facility] [place] [place] [address] PCP - External PCP Family Medicine 04/24/23 Gilberto Stockton MD [address] [place] [address] PCP - Devoted 08/24/23 Gilberto Stockton MD [address] [place] [address] PCP - General Family Medicine 03/09/24 Teressa Sierra NP [address] [place] [address] Nurse Practitioner Family [facility] 09/09/23 Flight Line Service Attendant Relationship Specialty Start Date End Date Mal Barnes MD [address] [facility] [address] PCP - External PCP Family Medicine 04/24/23 Gilberto Stockton MD [address] [place] [address] PCP - Devoted 08/24/23 08/23/24 Gilberto Stockton MD [address] [place] [address] PCP - General Family Medicine 03/09/24 Teressa Sierra NP [address] [place] [address] Nurse Practitioner Family Medicine 09/09/23 Flight Line Service Attendant Relationship Specialty Start Date End Date Mal Barnes MD [address] [place] [address] PCP - External PCP Family Medicine 04/24/23 Gilberto Stockton MD [address] [place] [address] PCP - Devoted 08/24/23 08/23/24 Gilberto Stockton MD [address] [place] [address] PCP - General Family Medicine 03/09/24 Teressa Sierra NP [address] [place] [address] Nurse Practitioner Family Medicine 09/09/23 Flight Line Service Attendant Relationship Specialty Start Date End Date Mal Barnes MD [address] [place] [address] PCP - External PCP Family Medicine 04/24/23 Gilberto Stockton MD [address] [place] [address] PCP - General Family Medicine 03/09/24 Teressa Sierra NP [address] [place] [address] Nurse Practitioner Family Medicine 09/09/23 Flight Line Service Attendant Relationship Specialty Start Date End Date Mal Barnes MD [address] [place] [address] PCP - External PCP Family Medicine 04/24/23 Gilberto Stockton MD [address] [place] [address] PCP - General Family Medicine 03/09/24 Teressa Sierra NP [address] [place] [address] Nurse Practitioner Family Medicine 09/09/23 Flight Line Service Attendant Relationship Specialty Start Date End Date Mal Barnes MD [address] [place] [address] PCP - External PCP Family Medicine 04/24/23 Gilberto Stockton MD [address] [place] [address] PCP - General Family Medicine 03/09/24 Teressa Sierra NP [address] [place] [address] Nurse Practitioner Family Medicine 09/09/23 Flight Line Service Attendant Relationship Specialty Start Date End Date Mal Barnes MD [address] [place] [address] PCP - External PCP Family Medicine 04/24/23 Gilberto Stockton MD [address] [place] [address] PCP - General Family Medicine 03/09/24 Teressa Sierra NP [address] [place] [address] Nurse Practitioner Family Medicine 09/09/23 Flight Line Service Attendant Relationship Specialty Start Date End Date Mal Barnes MD [address] [place] [address] PCP - External PCP Family Medicine 04/24/23 Gilberto Stockton MD [address] [place] [address] PCP - General Family Medicine 03/09/24 Teressa Sierra NP [address] [place] [address] Nurse Practitioner Family [facility] 09/09/23 Flight Line Service Attendant Relationship Specialty Start Date End Date Mal Barnes MD [address] [place] [address] PCP - External PCP Family Medicine 04/24/23 Gilberto Stockton MD [address] [place] [address] PCP - General Family Medicine 03/09/24 Gilberto Stockton MD [address] [place] [address] PCP - Medical [facility] 08/24/2408/23 Teressa Sierra NP [address] [place] [address] Nurse Practitioner Family Medicine 09/09/23 Flight Line Service Attendant Relationship Specialty Start Date End Date Mal Barnes MD [address] [place] [address] PCP - External PCP Family Medicine 04/24/23 Gilberto Stockton MD [address] [place] [address] PCP - General Family Medicine 03/09/24 Gilberto Stockton MD [address] [place] [address] PCP - Medical [place] [facility] 08/24/2408/23 Teressa Sierra NP [address] [place] [address] Nurse Practitioner Family Medicine 09/09/23 Flight Line Service Attendant Relationship Specialty Start Date End Date Mal Barnes MD [address] [place] [address] PCP - External PCP Family Medicine 04/24/23 Gilberto Stockton MD [address] [place] [address] PCP - General Family Medicine 03/09/24 Gilberto Stockton MD [address] [place] [address] PCP - Medical [place] [facility] 08/24/2408/23 Teressa Sierra NP [address] [place] [address] Nurse Practitioner Family Medicine 09/09/23 Flight Line Service Attendant Relationship Specialty Start Date End Date Mal Barnes MD [address] [place] [address] PCP - External PCP Family Medicine 04/24/23 Gilberto Stockton MD [address] [place] [address] PCP - General Family Medicine 03/09/24 Gilberto Stockton MD [address] [place] [address] PCP - Medical [place] [facility] 08/24/2408/23 Teressa Sierra NP [address] [place] [address] Nurse Practitioner Family Medicine 09/09/23 Flight Line Service Attendant Relationship Specialty Start Date End Date Mal Barnes MD [address] [facility] [place] [address] PCP - External PCP Family Medicine 04/24/23 Gilberto Stockton MD [address] [place] [address] PCP - General Family Medicine 03/09/24 Gilberto Stockton MD [address] [place] [address] PCP - Medical [place] [facility] 08/24/2408/23 Teressa Sierra NP [address] [place] [address] Nurse Practitioner Family Medicine 09/09/23 FOR RECORDS [...] THE PRIMARY CLINICAL RECORDS. [facility]. provides no warranty or guarantee of the accuracy or completeness of information in this document.
[2024-12-30 17:55] LABS: Anion Gap 6.6; BUN Creatinine Ratio 18.7; Calcium 8.4 mg/dL (8.5-10.1); Carbon Dioxide 30.5 mmol/L (21.0-32.0); Chloride 100 mmol/L (98-107); Estimated GFR (African America 53 (>=60 mL/min/1.73m^2); Estimated GFR (Non-African Ame 43 (>=60 mL/min/1.73m^2); Glucose 139 mg/dL (74-106); Potassium 4.1 mmol/L (3.5-5.1); Sodium 133 mmol/L (136-145)
== END 2024-12-30 16:46 | disposition home or self-care (01) ==
PROVIDERS: PCP Nurse Practitioner; Visit Provider Internal Medicine Interventional Cardiology
DX: I50.41 Acute combined systolic (congestive) and diastolic (congestive) heart failure (principal)
CPT/HCPCS: 36415; 80048; 83880

== ENCOUNTER 2025-01-03 14:49 | Outpatient (OUT) | payer MEDICARE, SELFPAY | END 2025-01-03 14:50 | disposition home or self-care (01) | LOC: WC 14:49 | PROVIDERS: PCP Nurse Practitioner; Visit Provider Physician Assistant | DX: R60.1 Generalized edema (principal); R60.9 Edema, unspecified | CPT/HCPCS: G0463 ==

== ENCOUNTER 2025-01-12 09:34 | Outpatient (REF) | payer MEDICARE, SELFPAY ==
--- OUTSIDE RECORDS SUMMARY | 2024-12-28 10:08 | XMS_ITS ---
Author Name Auto Generated Organization OHIP Care Team Providers Care Drug Coordinator Name Role Phone AIDEN NEELY Attending Unavailable AIDEN NEELY Attending Unavailable AIDEN NEELY Attending Unavailable ТАТЬЯНА TODD Attending Unavailable AIDEN NEELY Referring Unavailable AIDEN NEELY Attending Unavailable ARIELLA HERNANDEZ Attending Unavailable CATINA SALAZAR Attending Unavailable PROBLEMS DATE TYPE CONDITION / CODE ATTENDING STATUS [facility] 07/30/2022 Admitting Diagnosis Other pericardial effusion (noninflammatory) / I31.39(ICD-10) CATINA SALAZAR [facility] 05/03/2022 Admitting Diagnosis Presence of aortocoronary bypass graft / Z95.1(ICD-10) CATINA SALAZAR [facility] 10/03/2024 Admitting Diagnosis Chronic diastolic (congestive) heart failure / I50.32(ICD-10) CATINA SALAZAR [facility] 10/03/2024 Admitting Diagnosis Localized edema / R60.0(ICD-10) CATINA SALAZAR [facility] 05/03/2022 Admitting Diagnosis Essential (primary) hypertension / I10(ICD-10) ARIELLA HERNANDEZ [facility] 03/09/2024 Admitting Diagnosis Other forms of dyspnea / R06.09(ICD-10) JULIÁNROGERIOARIELLA [facility] 03/09/2024 Admitting Diagnosis Atherosclerotic heart disease of redding coronary artery without angina pectoris / I25.10(ICD-10) JULIÁN ARIELLA [facility] PROCEDURES No Procedure Records Found RESULTS 36 Observed: 01/02/2025 9:30 AM Status: COMPLETED Source: [facility] Spoke with Ladonna from [facility] and made her aware of furosemide increase. She will draw BMP in 1 week at patient's home. Order faxed to her. I spoke with patient and instructed him to double furosemide to 80mg daily. Advised him Ladonna will draw his blood in 1 week. Scheduled him for follow up with Dr. Salazar on 01/23. Patient verbalized understanding. 36 Observed: 12/30/2024 9:40 AM Status: COMPLETED Source: [facility] Ladonna with [facility] called asking if patient's diuretics could be increased. She said he was at [facility] ED recently for scrotal edema. She also said he has a LE wound that won't heal and he's very swollen with bilateral +2 nonpitting edema. I did confirmed he's taking furosemide 40mg daily and spironolactone 12.5mg daily. He has an apt with wound care on Thursday. He hasn't had labs since Sep 2024, so I ordered BMP/BNP for you to review prior to adjusting diuretics. Once I receive result I will forward to you. PROGRESS Observed: 10/03/2024 3:30 PM Status: COMPLETED Source: [facility] Cardiology - [facility] Subjective Shan Mcqueen is a 79 y.o. year old [...] coronary artery bypass surgery Nonsustained ventricular tachycardia ([facility]) Syncope and collapse Wound of sternal region Chronic diastolic congestive heart failure ([facility]) COVID-19 Hyperglycemia Metabolic syndrome MGUS (monoclonal gammopathy of unknown significance) Pericardial effusion Pneumonia, bacterial Solitary pulmonary nodule Arthritis of right hip Bilateral lower extremity edema Constipation COPD (chronic obstructive pulmonary disease) ([facility]) Encounter for subsequent annual wellness visit (AWV) in Medicare patient Hearing decreased Hypercholesterolemia Hyperpigmentation Iron deficiency Lymphedema Lymphorrhea Myocardial infarction ([facility]) Nicotine dependence Osteoarthritis of both knees Papillomatosis Sleep apnea Morbid obesity ([facility]) Venous stasis ulcer of right lower extremity ([facility]) Wound cellulitis Diabetes mellitus, type II ([facility]) MCC (current) use of inhaled steroids Ulcer of lower extremity ([facility]) Aortic ectasia, unspecified site ([facility]) Body mass index (BMI) 45.0-49.9, adult ([facility]) Chronic kidney disease, stage 3a ([facility]) Type 2 diabetes mellitus with diabetic chronic kidney disease ([facility]) Type 2 diabetes mellitus with diabetic peripheral angiopathy without gangrene ([facility]) 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 (CODE) ([facility]) Family History Problem Relation Name Age of Onset Coronary artery disease Mother Social History Tobacco Use Smoking status: Former Types: Cigarettes Smokeless tobacco: Never Substance Use Topics Drug use: Never HPI Visit of 03/20/2021: Shan is seen as a new patient. He is a 75-year-old man with history of hypertension and diabetes. He has longstanding lower extremity edema. In November 2020 he was sitting at a bar and developed epigastric pain and then lost consciousness. Developed syncope. He was resuscitated and admitted to the [facility]. His initial investigation was negative. He was [...] In August 2021 he was admitted to [facility] and then transferred to [facility] due to COVID infection and large [...] artery disease and not revascularize right coronary artery. His stress test July 2022 did not show evidence of ischemia and was normal. His echocardiogram July 2022 showed normal ventricular function. Due to abnormal PFTs he was seen by pulmonary and was started on inhalers and his breathing has improved. Today he reports that he has been doing reasonably well. He has no chest pain. He has chronic lower extremity edema. He has shortness of breath on exertion NYHA class II that is chronic. He reports that he ran out of Jardiance and due to his PCP change he has not had it refilled. He complains of feeling sleepy in the afternoon. He has not been using his CPAP machine since it is broken and he needs to get it fixed. Otherwise no complaints. Visit of 10/03/2024: He is seen in follow-up. He was evaluated in our office in November 2023 and in February 2024 due to shortness of breath. An echocardiogram and a stress test were nonrevealing. Today he reports that he continues to have shortness of breath on exertion NYHA class II symptoms. He has not been taking Jardiance due to cost. He has been seeing pulmonary Dr. Mayers. He has bilateral lower extremity edema and has venous ulcer on the right side of the right sanabria and he sees the wound clinic at the [facility]. He denies chest pain. Review of Systems Constitutional: Positive for malaise/fatigue. HENT: Positive for hearing loss. Cardiovascular: Positive for dyspnea on exertion. Respiratory: Positive for shortness of breath. Skin: Positive for poor wound healing. Objective Visit Vitals BP 130/68 (BP Location: Right arm, Patient Position: Sitting) Pulse 72 Ht 1.791 m (5' 10.5 ) Wt (!) 147 kg (323 lb) SpO2 94% BMI 45.69 kg/m??? Smoking Status Former BSA 2.7 m??? Physical Exam Constitutional: Appearance: He is well-developed. He is obese. He is not ill-appearing. HENT: Head: Normocephalic and atraumatic. Nose: Nose normal. Eyes: General: No scleral icterus. Pupils: Pupils are equal, round, and reactive to light. Neck: Thyroid: No thyromegaly. Vascular: No JVD. Cardiovascular: Rate and Rhythm: Normal rate and regular rhythm. Pulses: Radial pulses are 2+ on the right side and 2+ on the left side. Heart sounds: Normal heart sounds. No murmur heard. No friction rub. No gallop. Pulmonary: Effort: Pulmonary effort is normal. No respiratory distress. Breath sounds: Normal breath sounds. No wheezing or rales. Chest: Chest wall: No tenderness. Abdominal: General: Bowel sounds are normal. There is no distension. Palpations: Abdomen is soft. Tenderness: There is no abdominal tenderness. Musculoskeletal: General: No swelling. Cervical back: Neck supple. Right lower le+ Pitting Edema present. Left lower le+ Pitting Edema present. Skin: General: Skin is warm and dry. Neurological: General: No focal deficit present. Mental Status: He is alert and oriented to person, place, and time. Psychiatric: Mood and Affect: Mood normal. Behavior: Behavior is cooperative. Judgment: Judgment normal. Allergies No Known Allergies Medications Current Outpatient Medications: aspirin 81 mg chewable [...] mouth in the morning., Disp: , Rfl: ferrous sulfate 325 (65 Fe) MG tablet, Take 1 tablet by mouth in the morning., Disp: , Rfl: glipiZIDE (Glucotrol) 5 mg tablet, Take 2.5 mg by mouth in the morning., Disp: , Rfl: isosorbide mononitrate ER (Imdur) 30 mg 24 hr tablet, Take 1 tablet (30 mg) by mouth once daily as directed. Do not crush or chew., Disp: 90 tablet, Rfl: 3 spironolactone (Aldactone) 25 mg tablet, Take 0.5 tablets (12.5 mg) by mouth in the morning., Disp: 90 tablet, Rfl: 3 empagliflozin (Jardiance) 10 mg, Take 1 tablet (10 mg) by mouth in the morning. (Patient not taking: Reported on 10/03/2024), Disp: 90 tablet, Rfl: 3 furosemide (Lasix) 40 mg tablet, Take 1 tablet (40 mg) by mouth in the morning., Disp: 90 tablet, Rfl: 3 Ozempic 0.25 mg or 0.5 mg (2 mg/3 mL) pen injector, , Disp: , Rfl: Trelegy Ellipta 100-62.5-25 mcg blister with device, , Disp: , Rfl: Recent Labs No visits with results within 6 Month(s) from this visit. Latest known visit with results is: [facility] Encounter on 06/02/2021 Component Date Value POC SARS COV2 ANTIGEN NEG 06/02/2021 NEGATIVE Blood testing 05/21/2021: Platelets 248, hemoglobin 13.8, potassium 3.5, BUN 12, creatinine 0.98, LFTs within normal limits, hemoglobin A1c 5.8. Blood testing 10/23/2021: Hemoglobin 12, platelets 232, potassium 4.0, BUN 44, creatinine 1.54. Blood testing 04/15/2022: Potassium 4.8, BUN 25, creatinine 1.2, EGFR 59. BMP 05/05/2022: Potassium 4.9, BUN 40, creatinine 1.84. eGFR 36. BMP 04/14/2022: Potassium 4.8, BUN 25, creatinine 1.2. eGFR 59. Blood testing 05/20/2023: Hemoglobin 12.8, platelets 226, potassium 4.7, BUN 20, creatinine 1.08, EGFR more than 60, triglycerides 44, cholesterol 125, LDL 61, HDL 55. Blood testing 06/16/2024: Hemoglobin 12.2, platelets 195, potassium 4.7, BUN 16, creatinine 1.41, EGFR 48, hemoglobin A1c 5.4%, LFTs within normal limits, triglycerides 44, cholesterol 108, LDL 48, HDL 51. Blood testing 08/04/2024: Hemoglobin 11.9, platelets 238, potassium 4.7, BUN 18, creatinine 1.3, EGFR 53, LFTs normal. Imaging and other tests Stress test 03/17/2024: CONCLUSION: 1. Small fixed defect in the anterior wall, LAD distribution 2. No reversible ischemia 3. Dilated left ventricle, end-diastolic volume 124 milliliters 4. Pending exercise test results ECG portion of the stress test: Negative stress test for Lexiscan induced ischemic ECG changes. Echocardiogram 01/05/2024: CONCLUSION: 1. Normal ventricular systolic function. LVEF is 55-60%. 2. Mild to moderate biatrial dilatation. 3. No significant valvular dysfunction. 4. Unable to assess right-sided pressures due to lack of measurable tricuspid regurgitation. No evidence of pericardial effusion. ABIs 11/04/2023: Elevated indices bilateral thigh due to calcified noncompressible arterial castañeda which may underestimate the degree of arterial disease. Normal arterial evaluation of lower extremities without hemodynamic impairment of the bilateral lower extremities at rest [right SILVIA 1.12, left SILVIA 1.11]. Lower extremity venous duplex 09/03/2021: Conclusions: BILATERAL: NO EVIDENCE of deep vein thrombosis of the lower extremity as stated above. Evaluation of superficial veins was not performed. echocardiogram 08/18/2022: LV systolic function is difficult to assess but appears preserved, visually estimated ejection fraction is 55 to 60%. Moderate LVH, biatrial enlargement, right ventricle appears dilated with reduced systolic function, limited echocardiogram was performed. Nuclear medicine stress test 08/04/2022: Normal myocardial scan with no reversible ischemia, normal exercise stress test. Echocardiogram 05/08/2022: Moderate concentric left ventricular hypertrophy, normal systolic function, LVEF is 60%. Normal right ventricular systolic function. No significant valvular dysfunction. Normal right-sided pressures. Trivial pericardial effusion. Echocardiogram 10/23/2021: Normal ventricular systolic function, pericardial effusion: Small anterior pericardial effusion with moderate loculated effusion adjacent to the right atrium, moderate to large 2.3 cm posterior pericardial effusion with maximum measurement of 2.3 cm decreased from previous 2.85-3.19 cm. No obvious evidence of increased intrapericardial pressure by Doppler interrogation or 2D imaging. Echocardiogram 09/01/2021: Pericardium: There is a moderate pericardial effusion posterior and anterior to the heart. There is no echocardiographic evidence of tamponade. Left Ventricle: Systolic function is normal with an ejection fraction of 55-60%. No segmental wall motion abnormalities. Echo 08/28/2021 1. Global LV systolic function is hyperdynamic, the estimated EF 65 to 60% 2. Mild LVH 3. Grade 2 diastolic dysfunction 4. Biatrial enlargement 5. RV appears mildly dilated with preserved systolic function 6. Mildly elevated right-sided pressures with RVSP at 39 mmHg 7. No significant valvular abnormalities 8. A small to moderate anterior and a large posterior pericardial effusion measuring 2.85 to 3.19 cm in maximum dimensions seen. Echodense material seen in the anterior effusion suggesting thrombus or fibrin deposits. Significant respiratory variation in tricuspid Doppler flows noted (greater than 50%). This may suggest early tamponade physiology PFTs 04/03/2021: Study is most consistent with mild obstructive lung disease and gas trapping consistent with diagnosis of COPD/emphysema. Echocardiogram 03/15/2021: Normal ventricular systolic function, grade 2 diastolic dysfunction, no significant valvular dysfunction, mildly limited right atrium and right ventricle, the IVC is mildly dilated, right sided pressures could not be assessed due to lack of measurable tricuspid regurgitation jet Event monitor 02/01/2021-03/02/2021: Sinus rhythm with runs of ventricular tachycardia, the longest being 11 seconds Cardiac catheterization 04/03/2021: 1. Severe 2-vessel coronary [...] LAD, saphenous vein graft to diagonal branch. Event monitor 02/01/2021-03/02/2021: Sinus rhythm with runs of ventricular tachycardia, the longest being 11 seconds Assessment/Plan Diagnoses and all orders for this visit: Chronic diastolic heart failure (CMS/HCC) - furosemide (Lasix) 40 mg tablet; Take 1 tablet (40 mg) by mouth in the morning. - Basic metabolic panel; Future Edema of lower extremity - furosemide (Lasix) 40 mg tablet; Take 1 tablet (40 mg) by mouth in the morning. 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 CAD status post bypass surgery: His LAD and diagonal branch were revascularized. His right coronary artery could not be revascularized due to heavy calcifications in the artery. His stress test in July 2022 showed no ischemia. the stress test in February 2024 showed no ischemia. His ventricular function is normal. Continue aspirin and statin therapy. Continue isosorbide mononitrate 30 mg daily. 2. Hypertension: His blood pressure is borderline elevated today. I will continue current medications. I am adding furosemide which will help with control of blood pressure. 3. Chronic diastolic heart failure: Continue spironolactone. he has stopped jardiance due to cost. I will give him furosemide 40 mg daily. Previously he had worsening renal function with furosemide on top of the other 2 agents. I will monitor renal function. I will check BMP in 2 weeks. 4. Pericardial effusion: In the setting of having COVID infection. His follow-up echocardiogram and April 2022 showed resolution of the pericardial effusion. Last echocardiogram in December 2023 showed no pericardial effusion. If he continues to do well and response to furosemide therapy, I will plan on seeing him in follow-up in 6-month. Follow up in about 6 months (around 04/02/2025). Catina Salazar MD OFFICE VISIT Observed: 10/03/2024 3:30 PM Status: COMPLETED Source: [facility] [id number] Shan Mcqueen M Date Provider Department Center 10/03/2024 CATINA ROBERTS [facility] Family History Problem Relation Age of Onset Coronary artery disease Mother Family Status - Relation Status Age at Mother Level of Service:18784 MO OFFICE/OUTPATIENT ESTABLISHED MOD MDM 30 MIN 36 Observed: 03/29/2024 1:44 PM Status: COMPLETED Source: [facility] Regarding stress test result from 03/17/2024: CUAUHTEMOC Freeman MA Stress test looks fine No ischemia noted and no reversible defect noted. Patient informed. PROGRESS Observed: 03/09/2024 1:20 PM Status: COMPLETED Source: [facility] Cardiovascular Medicine [facility] SUBJECTIVE Chief Complaint Patient presents with Follow-up 3 month follow up Shan Mcqueen is a 78 y.o. male here [...] sternal region Chronic diastolic congestive heart failure ([facility]) COVID-19 Hyperglycemia Metabolic syndrome MGUS (monoclonal gammopathy of unknown significance) Pericardial effusion Pneumonia, bacterial Solitary pulmonary nodule Arthritis of right hip Bilateral lower extremity edema Constipation COPD (chronic obstructive pulmonary disease) ([facility]) Encounter for subsequent annual wellness visit (AWV) in Medicare patient Hearing decreased Hypercholesterolemia Hyperpigmentation Iron deficiency Lymphedema Lymphorrhea Myocardial infarction ([facility]) Nicotine dependence Osteoarthritis of both knees Papillomatosis Sleep apnea Morbid obesity ([facility]) Venous stasis ulcer of right lower extremity ([facility]) Wound cellulitis Diabetes mellitus, type II ([facility]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 Comments: Venous stasis skin changes to BLE Neurological: General: No focal deficit present. Mental Status: He is alert and oriented to person, place, and time. Psychiatric: Mood and Affect: Mood normal. Behavior: Behavior normal. Thought Content: Thought content normal. Judgment: Judgment normal. Labs: [facility] Encounter on 06/02/2021 Component Date Value Ref Range Status POC SARS COV2 ANTIGEN NEG 06/02/2021 NEGATIVE NEGATIVE Final Lab Results Component Value Date BNP 136 (H) 05/15/2021 12/17/23 Cr 1.27, BUN 28, eGFR 55, K 4.6 HgbA1c 5.5 NTproBNP 323 05/20/23 Hgb 12.8, plt 226 Cr 1.08, BUN 20, K 4.7, Na 135, eGFR >60, AST 12, ALT 16 Chol 125, LDL 61, trig 44, HDL 55 Labs 08/28/2021 CBC-hemoglobin 10.1, hematocrit 31.8, platelet 302, white blood cell 6.1 BMP-creatinine 1.1, BUN 18, K3.8, NA 137, GFR greater than 60 NT proBNP-876 Labs 07/12/21 CBC: hgb 8.5, plt 269, wbc 6.4 CMP: Cr. 1.28, BUN 22, 3.8, GFR 54 Blood testing 05/21/2021: Platelets 248, hemoglobin 13.8, potassium 3.5, BUN 12, creatinine 0.98, LFTs within normal limits, hemoglobin A1c 5.8. Testing/Procedures: ECHO 01/05/24 LVEF 55-60% Mild to mod biatrial dilatation No significant valvular dysfunction SILVIA's 11/04/2023 PFTs 04/03/2021 ECHO (08/18/2022) NM stress test (08/04/2022) Echocardiogram 05/08/2022: Moderate concentric left ventricular hypertrophy, normal systolic function, LVEF is 60%. Normal right ventricular systolic function. No significant valvular dysfunction. Normal right-sided pressures. Trivial pericardial effusion. CTA chest 09/03/2021: moderate pericardial effusion, no PE, no aortic aneurysm ECHO 09/01/2021: moderate pericardial effusion - no evidence of tamponade, EF 55-60% Echo 08/28/2021 1. Global LV systolic function is hyperdynamic, the estimated EF 65 to 60% 2. Mild LVH 3. Grade 2 diastolic dysfunction 4. Biatrial enlargement 5. RV appears mildly dilated with preserved systolic function 6. Mildly elevated right-sided pressures with RVSP at 39 mmHg 7. No significant valvular abnormalities 8. A small to moderate anterior and a large posterior pericardial effusion measuring 2.85 to 3.19 cm in maximum dimensions seen. Echodense material seen in the anterior effusion suggesting thrombus or fibrin deposits. Significant respiratory variation in tricuspid Doppler flows noted (greater than 50%). This may suggest early tamponade physiology Echocardiogram 03/15/2021: Normal ventricular systolic function, grade 2 diastolic dysfunction, no significant valvular dysfunction, mildly limited right atrium and right ventricle, the IVC is mildly dilated, right sided pressures could not be assessed due to lack of measurable tricuspid regurgitation jet Event monitor 02/01/2021-03/02/2021: Sinus rhythm with runs of ventricular tachycardia, the longest being 11 seconds Cardiac catheterization 04/03/2021: 1. Severe 2-vessel coronary [...] LAD, saphenous vein graft to diagonal branch. ASSESSMENT/PLAN: Diagnosis Plan 1. Dyspnea on exertion 2. Primary hypertension 3. Coronary artery disease involving redding coronary artery of redding heart without angina pectoris 4. Chronic diastolic congestive heart failure (CMS/HCC) 5. Chronic obstructive pulmonary disease, unspecified COPD type (CMS/HCC) 6. Hypotension, unspecified hypotension type 7. Benign hypertensive heart disease with heart failure (CMS/HCC) #Dyspnea on exertion #COPD -Since last seen he saw pulmonary. Started on inhaler for COPD. Breathing had intially improved. Recently GROVES worsened again. -He does not appear fluid overloaded on exam. Most recent NTproBNP at 352. -ECHO ordered - no evidence of fluid overload. Preserved LVEF. -Will order stress test to rule out ischemia. #CAD status post bypass surgery: -His LAD and diagonal branch were revascularized during his bypass surgery. His right coronary artery could not be revascularized due to heavy calcifications in the artery. Consider revascularization if he develops anginal sx's per Dr. Salazar. -Recent NM stress test 07/2022 was normal, negative for ischemia. -Continue ASA 81mg daily, atorvastatin 40mg daily, carvedilol 12.5mg BID, Imdur 30mg daily. -Will proceed with stress test to assess for ischemia given worsening GROVES. #Chronic diastolic heart failure -NYHA III -Compensated on exam -Continue Jardiance and spironolactone -Of note, he had worsening renal function with lasix on top of the other 2 agents #Hypertension #Hypotension -After last visit we discontinued amlodipine due to hypotension -Currently controlled -continue coreg 12.5mg BID #HLD -LDL well controlled per 04/2023 labs -Continue atorvastatin 40mg daily Follow up in about 3 months (around 06/09/2024). Ariella Hernandez NP [facility] Cardiovascular Medicine OFFICE VISIT Observed: 03/09/2024 1:20 PM Status: COMPLETED Source: [facility] [id number] Shan Mcqueen M Date Provider Department Center 03/09/2024 ARIELLA GRAVES Family History Problem Relation Age of Onset Coronary artery disease Mother Family Status - Relation Status Age at Mother Level of Service:75912 MO OFFICE/OUTPATIENT ESTABLISHED MOD MDM 30 MIN Reason for Visit and Comments: Follow-up [383365] - 3 month follow up ORDERS ONLY Observed: 03/09/2024 12:00 AM Status: COMPLETED Source: [facility] [id number] Shan Mcqueen M Date Provider Department Center 03/09/2024 LIBRADO CALDERON Family History Problem Relation Age of Onset Coronary artery disease Mother Family Status - Relation Status Age at Mother ALLERGIES DATE TYPE / CODE NAME / CODE REACTION SEVERITY SOURCE SYSTEMIC/[id number]( SNOMED CT) NO KNOWN ALLERGIES [facility] ENCOUNTERS ADMIT/DISCHARGE ACCOUNT NUMBER ADMITTING ENCOUNTER CLASS LOCATION SOURCE 12/28/2024/ 5 [id number] [facility] 12/19/2024/ 5 [id number] Ambulatory Building:[facility] 10/03/2024/ 5 [id number] Ambulatory Building:[facility] 09/27/2024/ 5 [id number] Ambulatory Building:[facility] 06/01/2024/ 4 [id number] Ambulatory Building:[facility] 03/14/2024/ 4 [id number] Ambulatory Building:[facility] 03/09/2024/ 4 [id number] Ambulatory Building:[facility] PAYERS ENCOUNTER GUARANTOR PAYER SUBSCRIBER SOURCE 12/28/2024 SHAN BRADY: [address] [address]Alm: (HP) Primary Insurance:MEDICAL MUTUAL MEDICAREPolicy Number: [id number] Date:2024-08-24 SHAN NAVARRETEB: [id number] [address] [address] [facility] 12/19/2024 SHAN NAVARRETEB: [address] [address]Ygy: () Primary Insurance:MEDICAL MUTUAL MEDICAREPolicy Number: [id number] Date:2024-08-24 SHAN NAVARRETEB: [id number] [address] [address] [facility] 10/03/2024 Primary Insurance:MEDICAL MUTUAL MEDICAREPolicy Number: [id number] Date:2024-08-24 SHAN NAVARRETEB: [id number] [address] [address] [facility] 09/27/2024 SHAN NAVARRETEB: [address] [address]Quo: () Primary Insurance:MEDICAL MUTUAL MEDICAREPolicy Number: [id number] Date:2024-08-24 SHAN NAVARRETEB: [id number] [address] [address] [facility] 06/01/2024 SHAN NAVARRETEB: [address] [address]Dxz: () Primary Insurance:DEVOTED HEALTHPolicy Number: [id number] Date:2023-08-24 SHAN BRADY: [id number] [address] [address] [facility] 03/14/2024 SHAN BRADY: [address] [address]Kxn: () Primary Insurance:DEVOTED HEALTHPolicy Number: [id number] Date:2023-08-24 SHAN BRADY: [id number] [address] [address] [facility] 03/09/2024 Primary Insurance:DEVOTED HEALTHPolicy Number: [id number] Date:2023-08-24 SHAN BRADY: [id number] [address] [address] [facility]
[2025-01-12 10:12] LABS: Anion Gap 10.6; BUN Creatinine Ratio 23.3; Calcium 8.7 mg/dL (8.5-10.1); Carbon Dioxide 28.1 mmol/L (21.0-32.0); Chloride 100 mmol/L (98-107); Estimated GFR (African America 51 (>=60 mL/min/1.73m^2); Estimated GFR (Non-African Ame 42 (>=60 mL/min/1.73m^2); Glucose 93 mg/dL (74-106); Potassium 4.7 mmol/L (3.5-5.1); Sodium 134 mmol/L (136-145)
== END 2025-01-12 09:35 | disposition home or self-care (01) ==
LOC: LAB 09:34
PROVIDERS: PCP Nurse Practitioner; Visit Provider Internal Medicine Interventional Cardiology
DX: I11.0 Hypertensive heart disease with heart failure (principal)
CPT/HCPCS: 36415; 80048

== ENCOUNTER 2025-02-21 12:19 | Outpatient (OUT) | payer MEDICARE, SELFPAY ==
--- NOTE | 2025-02-21 13:00 | CA_ITS ---
Patient Name: ARIANNE MCQUEEN MR#: [id number] : 1945 Exam Date: 02/21/2025 Ordering Doctor: DR CATINA SALAZAR M.D. ECHOCARDIOGRAM REPORT PROCEDURE: CA ECHO DOPPLER COMPLETE INDICATIONS: Chronic diastolic heart failure, h/o pericardial effusion, CABG, [place], COPD, hypertension, diabetes COMPARISON: None. DESCRIPTION: COMPLETE ECHOCARDIOGRAM Real-time transthoracic echocardiography with 2D, M-mode, spectral and color flow Doppler performed. QUALITY: Technical quality was good. LEFT VENTRICLE: Normal chamber size. Moderate concentric left ventricular hypertrophy. Normal left ventricle systolic function without wall motion abnormalities, calculated left ventricular ejection fraction is 74%. LV EF: Normal left ventricular ejection fraction, (>55%). DIASTOLIC: Left ventricle diastolic dysfunction ATRIAL SEPTUM: Appears intact LEFT ATRIUM: Mildly dilated RIGHT ATRIUM: Moderate dilatation. RIGHT VENTRICLE: Normal chamber size. Decreased right ventricular systolic function. TRICUSPID VALVE: Normal mobility and thickness. No stenosis with trivial regurgitation. Doppler studies reveal mildly (35-45) elevated right sided pressures.RVSP 39 mmHg MITRAL VALVE: Normal mobility and thickness. No evidence of mitral valve stenosis. There is no mitral annular calcification. Trivial mitral regurgitation. AORTIC VALVE: Normal trileaflet appearance. Thickened aortic valve. Normal leaflet mobility. No evidence of aortic valve stenosis. No aortic regurgitation. AORTIC ROOT: Normal diameter and appearance. PULMONIC VALVE: Not well visualized. No stenosis. No regurgitation. PERICARDIUM: No evidence of pericardial effusion. IVC: Not well visualized. PLEURA: CONCLUSION: Moderate concentric left ventricle hypertrophy Normal left ventricle systolic function without wall motion abnormalities, ejection fraction 74% Left ventricle diastolic dysfunction Normal right ventricle size but reduced systolic function Mildly elevated right-sided pressure, RVSP 39 mmHg Mildly dilated left atrium and moderately dilated right atrium No significant valvular abnormalities Adult Echocardiography Procedure Report Left Ventricle LVEDD (3.7 - 5.6 cm): 4.27 cm LVESD (2.2 - 4.0 cm): 3.31 cm LVIVS thickness (0.6 - 1.2 cm): 1.36 cm LVPW thickness (0.5 - 1.0 cm): 1.41 cm e': 0.08 m/s E - e': 7.21 LVOT Max Gradient: 3.19 mm[Hg] LVOT Area (cm2): 0.89 m/s Peak Velocity (LVOT): 0.89 m/s Mean Velocity (LVOT): 0.52 m/s LVOT Diameter 2.44 cm Left Ventricular Ejection Fraction: 73.81 % Left Atrium LA Volume Index (2D A2C): 34.87 ml/m2 Left Atrium Systolic Dimension: 5.36 cm Mitral Valve MV E to A Ratio: 0.70 MV Max Gradient: MV Mean Gradient: Mitral Valve A-Wave Peak Velocity: 0.79 m/s Mitral Valve E-Wave Peak Velocity: 0.56 m/s Cardiovascular Orifice Area: Right Ventricle RV Internal Diastolic Dimension: Aorta AO Root Diam: 3.62 cm Ascending Ao Diam: Aortic Valve AoV Area (Peak Seng): 4.71 cm2, 4.71 cm2 AoV Area (VTI): 4.57 cm2, 4.57 cm2 Deceleration Rolette: Pressure Half-Time: Peak Velocity(Antegrade Flow): 0.89 m/s Peak Gradient(Antegrade Flow): 3.13 mm[Hg] Mean Velocity(Antegrade Flow): 0.56 m/s Mean Gradient(Antegrade Flow): 1.52 mm[Hg] Velocity Time Integral: 21.41 cm Tricuspid Valve Peak Velocity (Regurgitant Flow): 2.80 m/s Peak Velocity: Pulmonic Valve Mean Gradient: 1.81 mm[Hg] Mean Velocity: 0.63 m/s Peak Velocity: 0.94 m/s, 1.06 m/s Peak Gradient: 3.55 mm[Hg], 4.52 mm[Hg] Right Atrium Right Atrium Systolic Pressure: 89.50 ml, 89.50 ml Dictated by: Ann Walls MD on 02/21/2025 at 14:32 Approved by: Ann Walls MD on 02/21/2025 at 14:40
[2025-02-21 13:13] LABS: Anion Gap 11.9; Blood Urea Nitrogen 39.0 mg/dL (7.0-18.0); Calcium 8.9 mg/dL (8.5-10.1); Carbon Dioxide 28.9 mmol/L (21.0-32.0); Chloride 98 mmol/L (98-107); Estimated GFR (African America 47 (>=60 mL/min/1.73m^2); Estimated GFR (Non-African Ame 39 (>=60 mL/min/1.73m^2); Glucose 141 mg/dL (74-106); Potassium 4.8 mmol/L (3.5-5.1); Sodium 134 mmol/L (136-145)
== END 2025-02-21 12:20 | disposition home or self-care (01) ==
LOC: CARD 12:19
PROVIDERS: PCP Nurse Practitioner; Visit Provider Internal Medicine Interventional Cardiology
DX: I50.32 Chronic diastolic (congestive) heart failure (principal); I31.39 Other pericardial effusion (noninflammatory)
CPT/HCPCS: 36415; 80048; 93306

== ENCOUNTER 2025-02-22 10:17 | Outpatient (OUT) | payer MEDICARE, SELFPAY ==
--- OUTSIDE RECORDS SUMMARY | 2025-02-08 13:00 | XMS_ITS | Encounter Summary ---
Author Organization [facility] Address [address] [place] [address] Care Team Providers Care Costumed Character Entertainer Name Role Phone House, Mal Bolden MD Unavailable [phone] Teressa Sierra NP Unavailable [phone] Gilberto Stockton MD Primary Care Provider [phone] Gilberto Stockton MD Unavailable Encounter Details Date Type Department Care Team (Late st Contact Info) Description 02/08/2025 1:00 PM EDT Office Visit [facility] [address] [facility] [address] [place] [address] Yadi Malik MD [address] [facility] [address] [place] [address] Neoplasm of unspecified behavior of bone, soft tissue, and skin (Primary Dx) Social History Tobacco Use Types Packs/Day Years Used Date Smoking Tobacco: Former Cigarettes 0.8 60 Smokeless Tobacco: Current Chew Tobacco Cessation:Ready to Q uit: Not Asked; Counseling Given: Not Answered Alcohol Use Standard Drinks/Week Comments Yes 0 (1 standard drink = 0.6 oz pure alcohol) 3-4 drinks 4 or more times a week Humiliation, Afraid, Rape, and Kick questionnair e Answer Date Recorded Within the last year, have y ou been afraid of your partner or ex-partner? No 12/14/2023 Within the last year, have y ou been humiliated or emotionally abused in other ways by your partner or ex-partner? No Within the last year, have y ou been kicked, hit, slapped, or otherwise physically hurt by your partner or ex-partner? No 12/14/2023 Within the last year, have y ou been raped or forced to have any kind of sexual activity by your partner or ex-partner? No 12/14/2023 Social Connection and Isolat ion Panel [NHANES] Answer Date Recorded In a typical week, how many times do you talk on the phone with family, friends, or neighbors? Once a week 12/14/2023 How often do you get togethe r with friends or relatives? Once a week 12/14/2023 How often do you attend chur ch or buddhist services? Never 12/14/2023 Do you belong to any clubs o r organizations such as oriental orthodox groups, unions, fraternal or athletic groups, or school groups? Yes 12/14/2023 How often do you attend meet ings of the clubs or organizations you belong to? More than 4 times per year 12/14/2023 Are you , , di vorced, , never , or living with a partner? 12/14/2023 AUDIT-C Answer Date Recorded Q1: How often do you have a drink containing alcohol? 4 or more times a week 12/14/2023 Q2: How many drinks containi ng alcohol do you have on a typical day when you are drinking? 5 or 6 Q3: How often do you have si x or more drinks on one occasion? Daily or almost daily 12/14/2023 Overall Financial Resource Strain (CARDIA) Answe r Date Recorded How hard is it for you to pa y for the very basics like food, housing, medical care, and heating? Not very hard 12/14/2023 PHQ-2 Answer Date Recorded Patient Health Questionnaire-2 Score 0 12/19/2024 [facility] - Occupational Stress Questionnaire Answer Date Recorded Do you feel stress - tense, restless, nervous, or anxious, or unable to sleep at night because your mind is troubled all the time - these days? Only a little 12/14/2023 Exercise Vital Sign Answer Date Recorde d On average, how many days pe r week do you engage in moderate to strenuous exercise (like a brisk walk)? 0 days 12/14/2023 On average, how many minutes do you engage in exercise at this level? 0 min 12/14/2023 Hunger Vital Sign Answer Date Recorded Within the past 12 months, y ou worried that your food would run out before you got the money to buy more. Never true 12/14/19 24 Within the past 12 months, t he food you bought just didn't last and you didn't have money to get more. Never true 12/14/2023 PRAPARE - Transportation Answer Date Re corded In the past 12 months, has l ack of transportation kept you from medical appointments or from getting medications? No 11/23 In the past 12 months, has l ack of transportation kept you from meetings, work, or from getting things needed for daily living? No 12/14/2023 Housing Stability Vital Sign Answer Ney e Recorded In the last 12 months, was t here a time when you were not able to pay the mortgage or rent on time? No 12/14/2023 In the last 12 months, how many places have you lived? 1 12/14/2023 In the last 12 months, was t here a time when you did not have a steady place to sleep or slept in a skilled nursing (including now)? No 12/14/2023 Sex and Gender Information Value Date Recorded Sex Assigned at Not on file Legal Sex Male 7:08 PM EDT Gender Identity Not on file Sexual Orientation Not on file documented as of this encounter Progress Notes * Ce Luna MA - 02/08/2025 1:00 PM EDT * Yadi Malik MD - 02/08/2025 1:00 PM EDT Images from the original note were not included. Subjective Shan Young is a 79 y.o. male who presents for the following: Excision Location: Right anterior neck Date of biopsy: 12/28/2024 Diagnosis: NUB - atypical basaloid neoplasm Pre-Op Checklist: History of pacemaker/defibrillator: No History of joint replacement in the past 2 years: No History of HIV/Hepatitis B/Hepatitis C: No Latex allergy: No Is the patient currently on a blood thinner? Yes. Aspirin. The patient was recommended to continue taking their blood thinner as usual before, during, and after the procedure. All pertinent medical history, medications, and allergies were reviewed. Surgical assistants: Son Luna CMA and Nicole Holley LPN Objective Well appearing patient in no apparent distress; mood and affect are within normal limits. Skin Exam 1. NEOPLASM OF UNSPECIFIED BEHAVIOR OF BONE, SOFT TISSUE, AND SKIN Right Anterior Neck Neola macule at biopsy site Skin excision Lesion length (cm): 0.8 Lesion width (cm): 0.7 Margin per side (cm): 0.4 Total excision diameter (cm): 1.6 Informed consent: discussed and consent obtained Informed consent comment: Risks and possible complications were discussed as noted on the consent form. The consent form was signed prior to the procedure. Timeout: patient name, date of , surgical site, and procedure verified Timeout comment: Patient and provider identified site. Site was marked and excision was drawn out. Photo was taken and shown to patient, patient verified this is the correct site. Procedure prep: Patient was prepped and draped in usual sterile fashion (The planned incision lineswere drawn along relaxed skin tension lines, if possible, to minimize scarring and deformity of surrounding structures.) Prep type: Chlorhexidine Anesthesia: the lesion was anesthetized in a standard fashion Anesthesia comment: The local anesthetic was injected to create a field block at the site of the procedure. Anesthetic: 1% lidocaine w/ epinephrine 1-100,000 buffered w/ 8.4% NaHCO3 Instrument used: #15 blade Instrument used comment: Incisions were made as drawn, and the surrounding tissue was undermined until the skin edges could be approximated without undue tension. Any tissue redundancies were removed. Hemostasis achieved with: suture and electrodesiccation Additional details: Amount of lidocaine used: 7.0 ml Estimated blood loss: 1.0 ml Skin repair Complexity: Intermediate Final length (cm): 4 Reason for type of repair: allow closure of the large defect Undermining: edges undermined Undermining comment: The surrounding tissue was undermined until the skin edges could be approximated without undue tension. Any tissue redundancies were removed. Subcutaneous layers (deep stitches): Suture size: 4-0 Suture type: Monocryl (poliglecaprone 25) Stitches: Buried horizontal mattress (Closure was performed in a layered fashion with subcutaneous tissue closed first using tension-bearing absorbable sutures to the level of the superficial fascia.) Fine/surface layer approximation (top stitches): Suture size: 4-0 Suture type: Monocryl (poliglecaprone 25) Stitches: running subcuticular Stitches comment: Epicuticular skin sutures were then placed with minimal tension. Hemostasis achieved with: suture and electrodesiccation Outcome: patient tolerated procedure well with no complications Post-procedure details: sterile dressing applied and wound care instructions given Post-procedure details comment: It was emphasized to the patient to contact the office for any signs of infection, uncontrollable bleeding, or complications. Dressing type: pressure dressing Specimen A - Dermatopathology exam Differential Diagnosis: Atypical Basaloid Epithelial Neoplasm Check Margins: Yes Previous accession number: [id number] Follow up: 4-6 months, FBSE documented in this encounter Plan of Treatment Upcoming Encounters Date Type Department Care Team (Late st Contact Info) Description 03/21/2025 3:00 PM EDT [facility] Visit [facility] [address] [place] [phone] Teressa Sierra NP [address] [place] [address] 08/10/2025 1:00 PM EST Office Visit [facility] [address] [place] [address] [place] [address] Brenna Dangelo PA [address] [place] [address] [place] [address] 12/25/2025 4:30 PM EDT Office Visit [facility] [address] [place] [phone] Teressa Sierra NP [address] [place] [phone] documented as of this encounter Procedures Procedure Name Priority Date/Time Associated Diagnosis Comments SKIN REPAIR Routine 02/08/2025 1:04 PM EDT Neoplasm of unspecified behavior of bone, soft tissue, and skin SKIN EXCISION Routine 02/08/2025 1:04 PM EDT Neoplasm of unspecified behavior of bone, soft tissue, and skin DERMATOPATHOLOGY EXAM Routine 02/08/2025 12:00 AM EDT Neoplasm of unspecified behavior of bone, soft tissue, and skin documented in this encounter Results * Skin repair (02/08/2025 1:04 PM EDT) Narrative Kirsty Dang LPN - 02/08/2025 1:04 PM EDT Complexity: Intermediate Final length (cm): 4 Reason for type of repair: allow closure of the large defect Undermining: edges undermined Undermining comment: The surrounding tissue was undermined until the skin edges could be approximated without undue tension. Any tissue redundancies were removed. Subcutaneous layers (deep stitches): Suture size: 4-0 Suture type: Monocryl (poliglecaprone 25) Stitches: Buried horizontal mattress (Closure was performed in a layered fashion with subcutaneous tissue closed first using tension-bearing absorbable sutures to the level of the superficial fascia.) Fine/surface layer approximation (top stitches): Suture size: 4-0 Suture type: Monocryl (poliglecaprone 25) Stitches: running subcuticular Stitches comment: Epicuticular skin sutures were then placed with minimal tension. Hemostasis achieved with: suture and electrodesiccation Outcome: patient tolerated procedure well with no complications Post-procedure details: sterile dressing applied and wound care instructions given Post-procedure details comment: It was emphasized to the patient to contact the office for any signs of infection, uncontrollable bleeding, or complications. Dressing type: pressure dressing us Yadi Malik MD DERM PROCEDURE ORDERABLES Fin al Result * Skin excision (02/08/2025 1:04 PM EDT) Narrative Kirsty Dang LPN - 02/08/2025 1:04 PM EDT Lesion length (cm): 0.8 Lesion width (cm): 0.7 Margin per side (cm): 0.4 Total excision diameter (cm): 1.6 Informed consent: discussed and consent obtained Informed consent comment: Risks and possible complications were discussed as noted on the consent form. The consent form was signed prior to the procedure. Timeout: patient name, date of , surgical site, and procedure verified Timeout comment: Patient and provider identified site. Site was marked and excision was drawn out. Photo was taken and shown to patient, patient verified this is the correct site. Procedure prep: Patient was prepped and draped in usual sterile fashion (The planned incision lines were drawn along relaxed skin tension lines, if possible, to minimize scarring and deformity of surrounding structures.) Prep type: Chlorhexidine Anesthesia: the lesion was anesthetized in a standard fashion Anesthesia comment: The local anesthetic was injected to create a field block at the site of the procedure. Anesthetic: 1% lidocaine w/ epinephrine 1-100,000 buffered w/ 8.4% NaHCO3 Instrument used: #15 blade Instrument used comment: Incisions were made as drawn, and the surrounding tissue was undermined until the skin edges could be approximated without undue tension. Any tissue redundancies were removed. Hemostasis achieved with: suture and electrodesiccation Additional details: Amount of lidocaine used: 7.0 ml Estimated blood loss: 1.0 ml us Yadi Malik MD DERM PROCEDURE ORDERABLES Fin al Result * Dermatopathology exam (02/08/2025 12:00 AM EDT) SPECIMEN TYPE --- SPECIMEN: RIGHT ANTERIOR NECK --- [facility] ICD10 Code C44.41 [facility] PROTOCOL EXC - EXCISION [facility] Final Diagnosis SCAR AND WOUND REPAIR REACTION, EXCISED (SEE COMMENT). 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 This case is reviewed in conjunction with the accompanying prior biopsy as listed in the case history summary. [facility] Gross Text 0.2x0.2cm scar 0.4cm from margin 3 blocks, (tips in 1) (4 in 2) (3 in 3) (vishal/lanny) (02/10/25) [facility] Microscopic Description Microscopic examination performed. [facility] CPT 28909*1 [facility] Skin Topography unknown / Unknown 02/08/2025 1:04 PM EDT Comment:Differential Diagnos is: Atypical Basaloid Epithelial Neoplasm Check Margins: Yes Previous accession number: [id number] us Yadi Malik MD LAB PATHOLOGY ORDERABLES Eboni antunez Result [facility] documented in this encounter Visit Diagnoses Diagnosis Neoplasm of unspecified behavior of bone, soft tissue, and skin- Primary documented in this encounter Additional Health Concerns Assessment Noted Time PHQ-9 Depression Total Score: 2 12/20/19 5:02 PM EDT documented as of this encounter Care Teams Costumed Character Entertainer Relationship Specialty Start Date End Date Mal Perez MD [address] [place] [address] PCP - External PCP Family Medicine 04/24/23 Gilberto Stockton MD [address] [place] [address] PCP - General Family Medicine 03/09/24 Gilberto Stockton MD [address] [place] [address] PCP - Medical [facility] 08/24/2408/23 Teressa Sierra NP [address] [place] [address] Nurse Practitioner Family Medicine 09/09/23 documented as of this encounter
--- OUTSIDE RECORDS SUMMARY | 2025-02-22 10:19 | XMS_ITS | Encounter Summary ---
Author Organization [facility] Address [address] [place] [address] Care Team Providers Care Press Operator Automatic Name Role Phone House, Mal Bolden MD Unavailable Gilberto Stockton MD Unavailable Teressa Sierra GROUNDSKEEPING YARDMAN Unavailable [phone] Gilberto Stockton MD Primary Care Provider [phone] Gilberto Stockton MD Unavailable Encounter Details Date Type Department Care Team (Late st Contact Info) Description 02/19/[address] [facility] [address] [phone] London Alcantara MD 703 [facility] [address] [place] [address] Social History Tobacco Use Types Packs/Day Years Used Date Smoking Tobacco: Never Assessed Sex and Gender Information Value Date Recorded Sex Assigned at Not on file Legal Sex Male 7:08 PM EDT Gender Identity Not on file Sexual Orientation Not on file documented as of this encounter Plan of Treatment Upcoming Encounters Date Type Department Care Team (Late st Contact Info) Description 03/21/2025 3:00 PM EDT Office Visit [facility] [address] [place] [phone] Teressa Sierra NP [address] [place] [address] 08/10/2025 1:00 PM EST Office Visit [facility] [address] [place] [address] Brenna Dangelo PA [address] [place] [address] 12/25/2025 4:30 PM EDT Office Visit [facility] [address] [place] [phone] Teressa Sierra, CUAUHTEMOC [address] [place] [address] documented as of this encounter Visit Diagnoses Not on filedocumented in this encounter Care Teams Press Operator Automatic Relationship Specialty Start Date End Date Mal Perez MD [address] [facility], [place] [phone] PCP - External PCP Family Medicine 04/24/23 Gilberto Stockton MD [address] [place] [address] PCP - Devoted 08/24/23 08/23/24 Gilberto Stockton MD [address] [place] [address] PCP - General Family Medicine 03/09/24 Gilberto Stockton MD [address] [place] [address] PCP - Medical [facility] 08/24/2408/23 Teressa Sierra, CUAUHTEMOC [address] [place] [address] Nurse Practitioner Family Medicine 09/09/23 documented as of this encounter
--- OUTSIDE RECORDS SUMMARY | 2025-02-22 10:19 | XMS_ITS | Encounter Summary ---
Author Organization [facility] Address [address] [place] [address] Care Team Providers Care Pediatric Surgeon Name Role Phone House, Mal Bolden MD Unavailable Gilberto Stockton MD Unavailable Teressa Sierra FAMILY PROGRAM SPECIALIST Unavailable [phone] Gilberto Stockton MD Primary Care Provider Gilberto Stockton MD Unavailable Encounter Details Date Type Department Care Team (Late st Contact Info) Description 03/04/[address] [facility] [address] [phone] London Alcantara MD 703 [facility] [address] [place] [address] Social History Tobacco Use Types [...] Visit [facility] [address] [place] [phone] Teressa Sierra NP [address] [place] [address] 08/10/2025 1:00 PM EST Office Visit [facility] [address] [place] [address] Brenna Dangelo PA [address] [place] [address] 12/25/2025 4:30 PM EDT Office Visit [facility] [address] [place] [address] Teressa Sierra, CUAUHTEMOC [address] [place] [address] documented as of this encounter Visit Diagnoses Not on filedocumented in this encounter Care Teams Pediatric Surgeon Relationship Specialty Start Date End Date Mal Perez MD [address] [facility], [place] [phone] PCP - External PCP Family Medicine 04/24/23 Gilberto Stockton MD [address] [place] [address] PCP - Devoted 08/24/23 08/23/24 Gilberto Stockton MD [address] [place] [address] PCP - General Family Medicine 03/09/24 Gilberto Stockton MD [address] [place] [address] PCP - Medical [facility] 08/24/2408/23 Teressa Sierra, CUAUHTEMOC [address] [place] [address] Nurse Practitioner Family Medicine 09/09/23 documented as of this encounter
--- OUTSIDE RECORDS SUMMARY | 2025-02-22 10:19 | XMS_ITS | Encounter Summary ---
Author Organization [facility] Address [address] [place] [address] Care Team Providers Care Toxicology Supervisor Name Role Phone House, Mal Bolden MD Unavailable Gilberto Stockton MD Unavailable Teressa Sierra TRANSPORT AIDE Unavailable [phone] Gilberto Stockton MD Primary Care Provider Gilberto Stockton MD Unavailable Encounter Details Date Type Department Care Team (Late st Contact Info) Description 03/18/[address] [facility] [address] [phone] London Alcantara MD 703 [facility] [address] [place] [address] Social History Tobacco Use Types [...] Visit [facility] [address] [place] [phone] Teressa Sierra NP [address] [place] [address] 08/10/2025 1:00 PM EST Office Visit [facility] [address] [place] [address] Brenna Dangelo PA [address] [place] [address] 12/25/2025 4:30 PM EDT Office Visit [facility] [address] [place] [address] Teressa Sierra, CUAUHTEMOC [address] [place] [phone] documented as of this encounter Visit Diagnoses Not on filedocumented in this encounter Care Teams Toxicology Supervisor Relationship Specialty Start Date End Date Mal Perez MD [address] [facility], [place] [phone] PCP - External PCP Family Medicine 04/24/23 Gilberto Stockton MD [address] [place] [address] PCP - Devoted 08/24/23 08/23/24 Gilberto Stockton MD [address] [place] [address] PCP - General Family Medicine 03/09/24 Gilberto Stockton MD [address] [place] [address] PCP - Medical [facility] 08/24/2408/23 Teressa Sierra, CUAUHTEMOC [address] [place] [address] Nurse Practitioner Family Medicine 09/09/23 documented as of this encounter
--- OUTSIDE RECORDS SUMMARY | 2025-02-22 10:19 | XMS_ITS | Encounter Summary ---
Author Organization [facility] Address [address] [place] [address] Care Team Providers Care Bulk Plant Supervisor Name Role Phone House, Mal Bolden MD Unavailable Gilberto Stockton MD Unavailable Teressa Sierra POOL NURSE Unavailable [phone] Gilberto Stockton MD Primary Care Provider [phone] Gilberto Stockton MD Unavailable Encounter Details Date Type Department Care Team (Late st Contact Info) Description 09/07/2023 Abstract [facility] [address] [place] [address] Teressa Sierra, POOL NURSE [address] [place] [address] Social History Tobacco Use Types Packs/Day Years Used Date Smoking Tobacco: Former Cigarettes 0.8 60 Smokeless Tobacco: Current Chew Tobacco Cessation:Ready to Q uit: Not Asked; Counseling Given: Not Answered Alcohol Use Standard Drinks/Week Comments Yes 0 (1 standard drink = 0.6 oz pure alcohol) 3-4 drinks 4 or more times a week PHQ-2 Answer Date Recorded Patient Health Questionnaire-2 Score 0 09/09/2023 Sex and Gender Information Value Date Recorded Sex Assigned at Not on file Legal Sex Male 7:08 PM EDT Gender Identity Not on file Sexual Orientation Not on file documented as of this encounter Functional Status * Over the past 2 weeks, how often have you been bothered by any of the following problems? Question Answer Date of Assessment Author Little interest or pleasure in doing things Not at all 09/09/2023 3:30 PM EST SUKHI EDWARDS Feeling down, depressed, or hopeless Not at all 09/09/2023 3:30 PM EST SUKHI EDWARDS A Patient Health Questionnaire -2 Score 0 09/09/2023 3:30 PM EST SUKHI EDWARDS documented as of this encounter Plan of Treatment Upcoming Encounters Date Type Department Care Team (Late st Contact Info) Description 03/21/2025 3:00 PM EDT Office Visit [facility] [address] [place] [address] Teressa Sierra, CUAUHTEMOC [address] [place] [address] 08/10/2025 1:00 PM EST Office Visit [facility] [address] [place] [address] Brenna Dangelo PA [address] [place] [address] 12/25/2025 4:30 PM EDT Office Visit [facility] [address] [place] [phone] Teressa Sierra, CUAUHTEMOC [address] [place] [address] documented as of this encounter Visit Diagnoses Not on filedocumented in this encounter Care Teams Bulk Plant Supervisor Relationship Specialty Start Date End Date Mal Perez MD [address] [facility] [place] [address] PCP - External PCP Family Medicine 04/24/23 Gilberto Stockton MD [address] [place] [address] PCP - Devoted 08/24/23 08/23/24 Gilberto Stockton MD [address] [place] [address] PCP - General Family Medicine 03/09/24 Gilberto Stockton MD [address] [place] [address] PCP - Medical [facility] 08/24/2408/23 Teressa Sierra NP [address] [place] [address] Nurse Practitioner Family Medicine 09/09/23 documented as of this encounter
--- OUTSIDE RECORDS SUMMARY | 2025-02-22 10:20 | XMS_ITS | Encounter Summary ---
Author Organization [facility] Address [address] [place] [address] Care Team Providers Care Guide Tour Name Role Phone Unavailable Primary Care Provider Unavailabl e Reason for Visit * Reason Comments Medication Refill Encounter Details Date Type Department Care Team (Late st Contact Info) Description 07/19/2021 Refill [facility] [address] [place] [address] [place] [address] [place] [address] [facility] [place] [address] [place] [address] Medication Refill Social History Tobacco Use Types Packs/Day Years Used Date Smoking Tobacco: Never Assessed Sex and Gender Information Value Date Recorded Sex Assigned at Not on file Legal Sex Male 7:40 PM EDT Gender Identity Not on file Sexual Orientation Not on file documented as of this encounter Plan of Treatment Not on file documented as of this encounter Visit Diagnoses Not on filedocumented in this encounter
--- OUTSIDE RECORDS SUMMARY | 2025-02-22 10:20 | XMS_ITS | Clinical Summary ---
Author Organization [facility] Address [address] [place] [address] Care Team Providers Care Electronic Assembler Group Leader Name Role Phone Teressa Sierra MD Primary Care Provider [phone] Allergies No known active allergies Medications ferrous sulfate 325 (65 Fe) MG tablet Take 1 tablet by mouth in the morning. Active celecoxib (CeleBREX) 200 mg capsule Take 200 mg by mouth in the morning. Active carvedilol (Coreg) 12.5 mg tabletIndication s:Coronary artery disease due to lipid rich plaque Take 1 tablet (12.5 mg) by mouth in the morning and at bedtime. 180 tablet 3 3 Active aspirin 81 mg chewable tablet Chew 81 mg in the morning. Active spironolactone (Aldactone) 25 mg tabletIndication s:Coronary artery disease due to lipid rich plaque Take 0.5 tablets (12.5 mg) by mouth in the morning. 90 tablet 3 4 Active Trelegy Ellipta 100-62.5-25 mcg blister with device 3 Active Ozempic 0.25 mg or 0.5 mg (2 mg/3 mL) pen injector Active atorvastatin (Lipitor) 40 mg tabletIndication s:Coronary artery disease due to lipid rich plaque Take 1 tablet (40 mg) by mouth at bedtime. 90 tablet 3 4 Active isosorbide mononitrate ER (Imdur) 30 mg 24 hr tabletIndication s:Coronary artery disease involving [place] coronary artery of [place] heart with other form of angina pectoris Take 1 tablet (30 mg) by mouth once daily as directed. Do not crush or chew. 90 tablet 3 4 06/17/20 25 Active furosemide (Lasix) 40 mg tabletIndication s:Chronic diastolic heart failure (CMS/HCC),Edema of lower extremity Take 1 tablet (40 mg) by mouth in the morning. 90 tablet 3 5 10/03/19 26 Active Additional Information Patient taking differently:40 mg oral2 times daily, Reported on 01/23/2025 glipiZIDE (Glucotrol) 5 mg tablet Take 5 mg by mouth before breakfast and before evening meal. 5 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 (CODE) 03/14/2024 snf (current) use of inhaled steroids 02/21 Hyperpigmentation 12/17/2023 12/17/2023 Lymphedema 12/17/2023 12/17/2023 Lymphorrhea 12/17/2023 12/17/2023 Wound cellulitis 12/17/2023 12/17/2023 Arthritis of right hip 12/14/2023 Encounter for subsequent [facility] wellness visit (AWV) in Medicare patient 12/14/2023 12/17/2023 Overview (12/17/2023): Last Assessment & Plan: Reviewed Ht/Wt/BMI Recommend eye exam yearly Recommend dental exams twice a year Balance work/leisure activities Exercises is recommended most days of the week (appropriate as chronic conditions allow) Follow up yearly and prn Hand out on living will and health care POA given Nicotine dependence 12/14/2023 12/17/2023 Papillomatosis 12/14/2023 12/17/2023 Venous stasis ulcer of right lower extremity 12/17/2023 Ulcer of lower extremity 12/14/2023 Morbid obesity 09/09/2023 12/17/2023 Bilateral lower extremity edema 09/08/2023 12/17/2023 Overview (12/17/2023): Last Assessment & Plan: Continue spironolactone script Constipation 09/08/2023 12/17/2023 COPD (chronic obstructive pulmonary disease) 12/17/2023 Overview (12/17/2023): Last Assessment & Plan: Continue with dr woodruff Hearing decreased 09/08/2023 12/17/2023 Hypercholesterolemia 09/08/2023 12/17/2023 Iron deficiency 09/08/2023 12/17/2023 Myocardial infarction 09/08/2023 12/17/2023 Osteoarthritis of both knees 09/08/2023 Sleep apnea 09/08/2023 12/17/2023 Overview (12/17/2023): Last Assessment & Plan: Follow with [facility] Sleep [facility] Dr Amado, no machine use for last 6 months, it is not working and he is waiting for a new machine Diabetes mellitus, type II 09/08/2023 Overview (03/09/2024): Last Assessment & Plan: Check blood sugars daily, notify if <70 [...] diet low in carbohydrates, and simple sugars. Would like to trial ozempic, no contraindications noted, not sure if he can afford, will trial, if he gets this, may have to stop his [place], pt is going to contact office either way if he gets it or cannot afford it Fu in 3 months Solitary pulmonary nodule 06/05/20232022 Pneumonia, bacterial 09/15/2022 Chronic diastolic congestive heart failure 07/14 COVID-19 08/29/2021 Pericardial effusion 08/29/2021 Multiple vessel coronary artery disease 07/03/20 21 Cough 07/03/2021 Edema 07/03/2021 Hypertensive disorder 07/03/2021 History of coronary artery bypass surgery 2020 Nonsustained ventricular tachycardia 07/03/2021 Wound of sternal region 07/03/2021 Syncope and collapse 03/20/2021 Hyperglycemia 08/19/2012 Metabolic syndrome 08/19/2012 MGUS (monoclonal gammopathy of unknown significa nce) 08/19/2012 Encounters Date Type Department Care Team Description 01/23/2025 1:30 PM EDT Office Visit [address] [address] Hunter Hearn MD Chronic diastolic heart failure (CMS/HCC) (Primary Dx); Primary hypertension; History of coronary artery bypass surgery; Coronary artery disease involving [place] coronary artery of [place] heart without angina pectoris; Pericardial effusion; Stage 3b chronic kidney disease (CMS/HCC) 01/12/2025 Orders Only [address] [address] Radha Watts MD 12/30/[address] [address] Katty Peters MA 12/30/2024 Orders Only [address] [address] LorraineKatty MA Acute combined systolic and diastolic heart failure (CMS/HCC) from Last 3 Months Immunizations Immunization Administration Dates Next Due Unspecified Sars-Cov-2 Vaccination 10/30/2020, Family History Medical History Relation Name Comments Coronary artery disease Mother Relation Name Status Comments Father Mother Social History Tobacco Use Types Packs/Day Years Used Date Smoking Tobacco: Former Cigarettes Smokeless Tobacco: Never Tobacco Cessation:Counseling Given: Not Answered Alcohol Use Standard Drinks/Week Comments Yes 0 (1 standard drink = 0.6 oz pur e alcohol) moderate [place] Safety & Environment Answer Date Rec orded Fear of Current or Ex-Partner Not on file Emotionally Abused Not on file 10/15/2023 Physically Abused Not on file 10/15/2023 Sexually Abused Not on file 10/15/2023 Physically or Sexually Abused Not on file Sex and Gender Information Value Date Recorded Sex Assigned at Not on file Legal Sex Male 12:36 AM EDT Gender Identity Not on file Sexual Orientation Not on file Last Filed Vital Signs Vital Sign Reading Time Taken Comments Blood Pressure 124/82 01/23/2025 1:05 PM EDT Pulse 57 01/23/2025 1:05 PM EDT Temperature 36.5 C (97.7 F) 08/14/2021 10:17 AM EST Respiratory Rate 14 03/09/2024 1:14 PM EDT Oxygen Saturation 94% 01/23/2025 1:05 PM EDT Inhaled Oxygen Concentration - - Weight 147 kg (325 lb) 01/23/2025 1:05 PM EDT Height 177.8 cm (5' 10 ) 01/23/2025 1:05 PM EDT Body Mass Index 46.63 01/23/2025 1:05 PM EDT Plan of Treatment Health Maintenance Due Date Last Done Comments Medicare Annual Wellness (AWV) 1945 Diabetes: Retinopathy Screening 1954 Depression Screening 1956 Pneumococcal Vaccine: 50+ Years (1 of 2 - PCV) 1963 Adult Tetanus 1966 Zoster Vaccines (1 of 2) 1994 Fall Risk Screening 2009 Diabetes: Hemoglobin A1C 07/05/2021 04/04/2021 COVID-19 Vaccine (3 - 2023-2 5 season) 2024 10/30/2020, 10/01/2020 Influenza Vaccine (#1) 2025 HIB Vaccines Aged Out No longer eligi ble based on patient's age to complete this topic HPV Vaccines Aged Out No longer eligi ble based on patient's age to complete this topic IPV Vaccines Aged Out No longer eligi ble based on patient's age to complete this topic Meningococcal B Vaccine Aged Out No l onger eligible based on patient's age to complete this topic Meningococcal Vaccine Aged Out No sharon manpreet eligible based on patient's age to complete this topic Rotavirus Vaccines Aged Out No longer eligible based on patient's age to complete this topic Procedures Procedure Name Priority Date/Time Associated Diagnosis Comments BASIC METABOLIC PANEL Routine 01/12/2025 3:49 PM EDT HEMOGLOBIN A1C Timed 04/04/2021 5:35 AM EDT from Last 3 Months or Most Recently Relevant to Health Maintenance Results * Basic metabolic panel (01/12/2025 3:49 PM EDT) Blood Venous blood specimen / Unknown Historical Provider LAB BLOOD ORDERABLES Eboni l Result * Hemoglobin A1c (04/04/2021 5:35 AM EDT) Hemoglobin A1C 5.4 4.0 - 6.0 % LAB CONVERSIONS Estimated Average Glucose 108 mmol/L LAB CONVERSIONS 04/04/2021 5:35 AM EDT 04/04/2021 6:14 AM EDT Narrative LAB CONVERSIONS - 04/04/2021 8:56 AM EDT No: Do not add to previous draw Gary Rooney MD LAB BLOOD ORDERABLES Final Resu lt LAB CONVERSIONS from Last 3 Months or Most Recently Relevant to Health Maintenance Insurance [employer] [place] [employer] Care Teams Electronic Assembler Group Leader Relationship Specialty Start Date End Date Teressa Sierra MD [address] [place] [address] PCP - General Nurse Practitioner 12/17/23
--- OUTSIDE RECORDS SUMMARY | 2025-02-22 10:20 | XMS_ITS | Encounter Summary ---
Author Organization [facility] Address [address] [place] [address] Care Team Providers Care Crusher Feeder Name Role Phone House, Mal Bolden MD Unavailable [phone] Teressa Sierra NP Unavailable [phone] Gilberto Stockton MD Primary Care Provider [phone] Gilberto Stockton MD Unavailable Encounter Details Date Type Department Care Team (Late st Contact Info) Description 02/08/2025 Bamboo flowsheet [facility] [address] [facility] [address] [place] [phone] Yadi Malik MD [address] [facility] [address] [place] [address] Social History Tobacco Use Types Packs/Day Years Used Date Smoking Tobacco: Former Cigarettes 0.8 60 Smokeless Tobacco: Current Chew Alcohol Use Standard Drinks/Week Comments Yes 0 [...] often do you attend chur ch or anabaptist services? Never 12/14/2023 Do you belong to any clubs o r organizations such as hindu groups, unions, fraternal or athletic groups, or [...] Recorded Patient Health Questionnaire-2 Score 0 12/19/2024 [facility] - Occupational Stress Questionnaire Answer Date [...] place to sleep or slept in a residential (including now)? No 12/14/2023 Sex and Gender Information Value Date Recorded Sex Assigned at Not on file Legal Sex Male 7:08 PM EDT Gender Identity Not on file Sexual Orientation Not on file documented as of this encounter Plan of Treatment Upcoming Encounters Date Type Department Care Team (Late st Contact Info) Description 03/21/2025 3:00 PM EDT Office Visit [facility] [address] [place] [address] Teressa Sierra NP [address] [place] [address] 08/10/2025 1:00 PM EST Office Visit [facility] [address] [place] [address] Brenna Dangelo PA [address] [place] [address] 12/25/2025 4:30 PM EDT Office Visit [facility] [address] [place] [phone] Teressa Sierra, CUAUHTEMOC [address] [place] [address] documented as of this encounter Visit Diagnoses Not on filedocumented in this encounter Additional Health Concerns Assessment Noted Time PHQ-9 Depression Total Score: 2 12/20/19 25 5:02 PM EDT documented as of this encounter Care Teams Crusher Feeder Relationship Specialty Start Date End Date Mal Perez MD [address] [place] [address] PCP - External PCP Family Medicine 04/24/23 Gilberto Stockton MD [address] [place] [address] PCP - General Family Medicine 03/09/24 Gilberto Stockton MD [address] [place] [phone] PCP - Medical [facility] 08/24/2408/23 Teressa Sierra NP [address] [place] [phone] Nurse Practitioner Family Medicine 09/09/23 documented as of this encounter
--- OUTSIDE RECORDS SUMMARY | 2025-02-22 10:20 | XMS_ITS | Encounter Summary ---
Author Organization [employer] Address [id number] [address] [place] [address] Care Team Providers Care Truck Washer Name Role Phone Mal Perez DO Primary Care Provider [phone] Encounter Details Date Type Department Care Team (Late st Contact Info) Description 08/29/2021 Orders Only [facility] [address] [place] [phone] Transcribe, Orders Support User Pain (Primary Dx) Social History Tobacco Use Types Packs/Day Years Used Date Smoking Tobacco: Former Cigarettes Q uit: 12/2020 Smokeless Tobacco: Former Alcohol Use Standard Drinks/Week Comments Yes 0 (1 standard drink = 0.6 oz pur e alcohol) 4-5 white claws daily Childcare Answer Date Recorded Childcare Unknown 02/02/2019 Employment Answer Date Recorded Employment Unknown 02/02/2019 Sex and Gender Information Value Date Recorded Sex Assigned at Not on file Legal Sex Male 12:04 PM EDT Gender Identity Not on file Sexual Orientation Not on file COVID-19 Exposure Response Date Recorded In the last month, have you been in contact with someone who was confirmed or suspected to have Coronavirus / COVID-19? No / Unsure 08/29/2021 11:12 AM EST documented as of this encounter Plan of Treatment Not on file documented as of this encounter Goals Goal Patient Goal Type Associated Problems Recent Progress Patient-Stated? Author <enter goal here> General Yes Arpita King, RN Note: Evaluation of progress towards goal: home self care documented as of this encounter Results * Non [facility] (08/28/2021 10:55 AM EST) us Scanning Provider External CV ECHO ORDERABLES Fi nal Result XCELERA documented in this encounter Visit Diagnoses Diagnosis Pain- Primary Generalized pain documented in this encounter Additional Health Concerns Infection Onset Date Last Indicated Resolved Time COVID-19 Positive 08/29/2021 08/29/2021 09/19/2021 11:12 PM EST documented as of this encounter Care Teams Truck Washer Relationship Specialty Start Date End Date Mal Perez DO PCP - General Family Medicine 08/24/21 documented as of this encounter
--- OUTSIDE RECORDS SUMMARY | 2025-02-22 10:20 | XMS_ITS | Encounter Summary ---
Author Organization [facility] Address [address] [facility] [place] [address] Care Team Providers Care Furnace Converter Name Role Phone House, Mal Bolden MD Unavailable [phone] Gilberto Stockton MD Unavailable Teressa Sierra LOAD HAUL DUMP OPERATOR Unavailable [phone] Gilberto Stockton MD Primary Care Provider [phone] Gilberto Stockton MD Unavailable Encounter Details Date Type Department Care Team (Late st Contact Info) Description 11/04/2023 Clinisync Result Encounter [facility] External Department Unsolicited Provider, Generic External Data Social History Tobacco Use Types Packs/Day Years [...] Office Visit [facility] [address] [place] [address] Teressa Sierra, CUAUHTEMOC [address] [place] [address] 08/10/2025 1:00 PM EST Office Visit [facility] [address] [place] [phone] Brenna Dangelo PA [address] [place] [address] 12/25/2025 4:30 PM EDT Office Visit [facility] [address] [place] [address] Teerssa Sierra NP [address] [place] [address] documented as of this encounter Procedures Procedure Name Priority Date/Time Associated Diagnosis Comments SEGMENTAL BLOOD PRESSURE 11/04/2023 3:13 PM EDT documented in this encounter Results * SEGMENTAL BLOOD PRESSURE (11/04/2023 3:13 PM EDT) Anatomical Region Laterality Modality Radiographic Aminta ging 11/04/2023 3:13 PM EDT Narrative 11/05/2023 7:02 [place] [address] Cardiology Report Signed Patient: ARIANNE MCQUEEN MR#: [id number] : 1945 Acct:[id number] Age/Sex: 78 / M ADM Date: 11/04/23 Loc: CARD Attending Dr: Wallace Henry D.P.M. Ordering Physician: Wallace Henry D.P.M. Date of Service: 11/04/23 Procedure(s): CA segmental UE or LE ANDI Accession Number(s): [id number] cc: Teressa Sierra LOAD HAUL DUMP OPERATOR; Wallace Henry D.P.M. [facility] Test Date: 2023-11-04 Pat Name: ARIANNE MCQUEEN Department: Room: - Gender: Male Lime Burner: Genevieve Torres : 1945 Requested By: 2013 Order Number: [id number] Chris MD: NISHANT OSULLIVAN Interpretive Statements Biphasic doppler waveforms PVR waveforms with normal upstroke, amplitude and dicrotic notch Right: - significant pressure gradient between the thigh and calf cuff - normal SILVIA Left: - significant pressure gradient between the thigh and calf cuff - normal SILVIA Impression: - elevated indices (B/L thigh) due to calcified, noncompressible arterial castañeda, which may underestimate the degree of arterial disease - normal arterial evaluation of the lower extremities without hemodynamic impairment of the B/L lower extremities at rest (right SILVIA 1.12, left SILVIA 1.11) Electronically Signed On 11-05-2023 7:02:16 EDT by NISHANT OSULLIVAN Dictated By: Nishant Osullivan D.O. Signed By: 11/05/23 0702 11/05/23 0702 DD/ 1513 TD/TT: Contact Finger Assembler: Procedure Note Radiology, Radiologist, MD - 11/05/2023 [place] [address] Cardiology Report Signed Patient: ARIANNE MCQUEEN AMR#: [id number] : 1945cct:[id number] Age/Sex: 78 / MADM Date: 11/04/23 Loc: CARD Attending Dr: Wallace Henry D.P.M. Ordering Physician: Wallace Henry D.P.M. Date of Service: 11/04/23 Procedure(s): CA segmental UE or LE ANDI Accession Number(s): [id number] cc: Teressa Sierra LOAD HAUL DUMP OPERATOR; Wallace Henry D.P.M. [facility] Test Date: 2023-11-04 Pat Name: ARIANNE MCQUEEN Department: Room: - Gender: Male Lime Burner: Genevieve Torres : 1945 Requested By: 2013 Order Number: [id number] Reading MD: NISHANT OSULLIVAN Interpretive Statements Biphasic doppler waveforms PVR waveforms with normal upstroke, amplitude and dicrotic notch Right: - significant pressure gradient between the thigh and calf cuff - normal SILVIA Left: - significant pressure gradient between the thigh and calf cuff - normal SILVIA Impression: - elevated indices (B/L thigh) due to calcified, noncompressible arterial castañeda, which may underestimate the degree of arterial disease - normal arterial evaluation of the lower extremities without hemodynamic impairment of the B/L lower extremities at rest (right SILVIA 1.12, left SILVIA 1.11) Electronically Signed On 11-05-2023 7:02:16 EDT by NISHANT OSULLIVAN Dictated By: Nishant Osullivan D.O. Signed By:11/05/23 0702 11/05/23 0702 DD/ 1513 TD/TT: Contact Finger Assembler: us Generic External Data Provider IMG XR PROCEDURES Final Result documented in this encounter Visit Diagnoses Not on filedocumented in this encounter Care Teams Furnace Converter Relationship Specialty Start Date End Date Mal Perez MD [address] [place], [place] [phone] PCP - External PCP Family Medicine 04/24/23 Gilberto Stockton MD [address] [place] [address] PCP - Devoted 08/24/23 08/23/24 Gilberto Stockton MD [address] [place] [phone] PCP - General Family Medicine 03/09/24 Gilberto Stockton MD [address] [place] [phone] PCP - Medical [facility] 08/24/2408/23 Teressa Sierra NP [address] [place] [phone] Nurse Practitioner Family Medicine 09/09/23 documented as of this encounter
--- OUTSIDE RECORDS SUMMARY | 2025-02-22 10:20 | XMS_ITS | Clinical Summary ---
Author Organization [facility] Address [address] [place] [address] Care Team Providers Care Commercial Lender Name Role Phone House Sr., Mal LIU Primary Care Provider + Allergies No known active allergies Medications amLODIPine (NORVASC) 10 mg tablet Take 10 mg by mouth once daily. Active furosemide (LASIX) 40 mg tablet Take 40 mg by mouth once daily. 5 10/29/2017 Active metFORMIN (GLUCOPHAGE) 500 mg tablet Take 500 mg by mouth twice daily. 1 10/12/2017 Active NAPROXEN SODIUM (ALEVE ORAL) Take by mouth. Active traZODone (DESYREL) 50 mg tablet Take 50 mg by mouth daily at bedtime. 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 Hyperglycemia 08/19/2012 Peripheral vascular disease 08/19/2012 Social History Tobacco Use Types Packs/Day Years Used Date Smoking Tobacco: Every Day Cigarettes 1 20 Smokeless Tobacco: Never Alcohol Use Standard Drinks/Week Comments Yes 0 (1 standard drink = 0.6 oz pur e alcohol) PHQ-2 Answer Date Recorded PHQ-2 score 0 04/12/2020 Area Deprivation Index Answer Date Yehuda rded National Score (1-100), lower number is lower ri sk Not on file 08/01/2020 State Score (1-10), lower number is lower risk N ot on file 08/01/2020 Data from: https://www.neighborhoodatlas.medicine.[facility].edu/. Last address used for calculation Not on file 08/01/2020 Sex and Gender Information Value Date Recorded Sex Assigned at Not on file Legal Sex Male 10:16 AM EST Gender Identity Not on file Sexual Orientation Not on file Last Filed Vital Signs Vital Sign Reading Time Taken Comments Blood Pressure 148/80 04/12/2020 1:38 PM EDT Pulse 75 04/12/2020 1:38 PM EDT Temperature 36.3 C (97.4 F) 04/12/2020 1:38 PM EDT Respiratory Rate 16 04/12/2020 1:38 PM EDT Oxygen Saturation 95% 04/12/2020 1:38 PM EDT Inhaled Oxygen Concentration - - Weight 134 kg (295 lb 6.4 oz) 04/12/2020 1:38 PM EDT Height 179.1 cm (5' 10.51 ) 04/12/2020 1:38 PM E DT Body Mass Index 41.77 04/12/2020 1:38 PM EDT Plan of Treatment Health Maintenance Due Date Last Done Comments Anxiety Screening 1963 Depression Screening 1963 DTaP,Tdap,Td Vaccine (1 - Tdap) 1963 Pneumococcal Vaccine: 50+ (1 of 1 - PCV) 1994 Shingrix Vaccine (1 of 2) 1994 RSV Vaccine (1 - 1-dose 75+ series) 2019 Covid-19 Vaccine (1 - 2023-2 5 season) 2024 Advance Directive Discussion 08/24/2024 Diabetes Screening 09/03/2024 09/03/2021, 0 09/02/2021, 09/01/2021, Additional history exists Influenza Vaccine (Season Ended) 2025 Procedures Procedure Name Priority Date/Time Associated Diagnosis Comments COMPREHENSIVE METABOLIC PANEL Routine 04/04/2020 1:36 PM EDT MGUS (monoclonal gammopathy of unknown significance) from Last 3 Months or Most Recently Relevant to Health Maintenance Results * (ABNORMAL) COMP METABOLIC PANEL (04/04/2020 1:36 PM EDT) Protein, Total 8.7(H) 6.3 - 8.0 g/dL 04/04/2020 2:27 PM EDT [facility] Albumin 4.3 3.9 - 4.9 g/dL 04/04/2020 2:27 PM EDT [facility] Calcium 9.2 8.5 - 10.2 mg/dL 04/04/2020 2:27 PM EDT [facility] Bilirubin, Total 1.2 0.2 - 1.3 mg/dL 04/04/2020 2:27 PM EDT [facility] Alkaline Phosphatase 90 38 - 113 U/L 04/04/2020 2:27 PM EDT [facility] AST 15 14 - 40 U/L 04/04/2020 2:27 PM EDT [facility] Glucose 129(H) 74 - 99 mg/dL 04/04/2020 2:27 PM EDT [facility] Comment: The [place] [employer] (ADA) provides guidance for cutoff values for fasting glucose and random glucose. The ADA defines fasting as no caloric intake for at least 8 hours. Fasting plasma glucose results between 100 to 125 mg/dL indicate increased risk for diabetes (prediabetes). Fasting plasma glucose results greater than or equal to 126 mg/dL meet the criteria for diagnosis of diabetes. In the absence of unequivocal hyperglycemia, results should be confirmed by repeat testing. In a patient with classic symptoms of hyperglycemia or hyperglycemic crisis, random plasma glucose results greater than or equal to 200 mg/dL meet the criteria for diagnosis of diabetes. Reference: Standards of Medical Care in Diabetes 2016, [place] [employer]. Diabetes Care. 2016.39(Suppl 1). BUN 15 9 - 24 mg/dL 04/04/2020 2:27 PM EDT [facility] Creatinine 0.76 0.73 - 1.22 mg/dL 04/04/2020 2:27 PM EDT [facility] Sodium 133(L) 136 - 144 mmol/L 04/04/2020 2:27 PM EDT [facility] Potassium 3.7 3.7 - 5.1 mmol/L 04/04/2020 2:27 PM EDT [facility] Chloride 96(L) 97 - 105 mmol/L 04/04/2020 2:27 PM EDT [facility] CO2 29 22 - 30 mmol/L 04/04/2020 2:27 PM EDT [facility] Anion Gap 8(L) 9 - 18 mmol/L 04/04/2020 2:27 PM EDT [facility] ALT 16 10 - 54 U/L 04/04/2020 2:27 PM EDT [facility] eGFR- >60 04/04/2020 2:27 PM EDT [facility] eGFR-All Other Races >60 . 04/04/2020 2:27 PM EDT [facility] Comment: eGFR (Estimated GFR) Units of measure: mL/min/1.73 meters squared eGFR is derived from the reexpressed MDRD Study equation using the following parameters: serum creatinine, age, gender and race. The creatinine assay has been calibrated to be traceable to IDMS. An eGFR <60 mL/min/1.73m2 for >3 months is consistent with chronic kidney disease. Refer to KDOQI guidelines for clinical interpretation. In patients with unstable renal function, e.g. those with acute kidney injury, the eGFR may not accurately reflect actual GFR. Blood specimen (specimen) BLOOD SPECIMEN / Unknown 04/04/2020 1:36 PM EDT 04/04/2020 1:52 PM EDT Willie Sotelo MD LABORATORY Final Result [address] [address] [facility] [address] from Last 3 Months or Most Recently Relevant to Health Maintenance Insurance [place] [employer] Care Teams Commercial Lender Relationship Specialty Start Date End Date Mal Perez Sr., DO PCP - General Family Medicine 04/02/12
--- OUTSIDE RECORDS SUMMARY | 2025-02-22 10:20 | XMS_ITS | Encounter Summary ---
Author Organization [facility] Address [address] [place] [address] Care Team Providers Care Circuit Designer Name Role Phone House, Mal Bolden MD Unavailable [phone] Teressa Sierra NP Unavailable [phone] Gilberto Stockton MD Primary Care Provider [phone] Gilberto Stockton MD Unavailable Encounter Details Date Type Department Care Team (Late st Contact Info) Description 02/21/2025 Clinisync Result Encounter [facility] Unsolicited [...] often do you attend chur ch or bahai services? Never 12/14/2023 Do you belong to any clubs o r organizations such as pentecostalism groups, unions, fraternal [...] Recorded Patient Health Questionnaire-2 Score 0 12/19/2024 [facility] - Occupational Stress [...] place to sleep or slept in a assisted (including now)? No 12/14/2023 Sex and Gender Information Value Date Recorded Sex Assigned at Not on file Legal Sex Male 7:08 PM EDT Gender Identity Not on file Sexual Orientation Not on file documented as of this encounter Plan of Treatment Upcoming Encounters Date Type Department Care Team (Late st Contact Info) Description 03/21/2025 3:00 PM EDT Office Visit [facility] [address] [place] [phone] Teressa Sierra, [place] [address] [place] [phone] 08/10/2025 1:00 PM EST Office Visit [facility] [address] [place] [address] Brenna Dangelo PA [address] [place] [address] 12/25/2025 4:30 PM EDT Office Visit [facility] [address] [place] [phone] Teressa Sierra NP [address] [place] [phone] documented as of this encounter Procedures Procedure Name Priority Date/Time Associated Diagnosis Comments CA ECHO DOPPLER COMPLETE 02/21/2025 2:40 PM EDT documented in this encounter Results * CA ECHO DOPPLER COMPLETE (02/21/2025 2:40 PM EDT) Anatomical Region Laterality Modality Other 02/21/2025 2:40 PM EDT Narrative 02/21/2025 2:41 [place] [address] Cardiology Report Signed Patient: ARIANNE MCQUEEN MR#: [id number] : 1945 Acct:[id number] Age/Sex: 79 / M ADM Date: 02/21/25 Loc: CARD Attending Dr: CATINA SALAZAR Ordering Physician: CATINA SALAZAR Date of Service: 02/21/25 Procedure(s): CA echo doppler complete Accession Number(s): [id number] cc: Teressa Sierra MOBILE DEVELOPER; CATINA SALAZAR Patient Name: ARIANNE MCQUEEN MR#: [id number] : 1945 Exam Date: 02/21/2025 Ordering Doctor: DR CATINA SALAZAR M.D. ECHOCARDIOGRAM REPORT PROCEDURE: CA ECHO DOPPLER COMPLETE INDICATIONS: Chronic diastolic heart failure, h/o pericardial effusion, CABG, HI, COPD, hypertension, diabetes COMPARISON: None. DESCRIPTION: COMPLETE ECHOCARDIOGRAM Real-time transthoracic echocardiography with 2D, M-mode, spectral and color flow Doppler performed. QUALITY: Technical quality was good. LEFT VENTRICLE: Normal chamber size. Moderate concentric left ventricular hypertrophy. Normal left ventricle systolic function without wall motion abnormalities, calculated left ventricular ejection fraction is 74%. LV EF: Normal left ventricular ejection fraction, (>55%). DIASTOLIC: Left ventricle diastolic dysfunction ATRIAL SEPTUM: Appears intact LEFT ATRIUM: Mildly dilated RIGHT ATRIUM: Moderate dilatation. RIGHT VENTRICLE: Normal chamber size. Decreased right ventricular systolic function. TRICUSPID VALVE: Normal mobility and thickness. No stenosis with trivial regurgitation. Doppler studies reveal mildly (35-45) elevated right sided pressures.RVSP 39 mmHg MITRAL VALVE: Normal mobility and thickness. No evidence of mitral valve stenosis. There is no mitral annular calcification. Trivial mitral regurgitation. AORTIC VALVE: Normal trileaflet appearance. Thickened aortic valve. Normal leaflet mobility. No evidence of aortic valve stenosis. No aortic regurgitation. AORTIC ROOT: Normal diameter and appearance. PULMONIC VALVE: Not well visualized. No stenosis. No regurgitation. PERICARDIUM: No evidence of pericardial effusion. IVC: Not well visualized. PLEURA: CONCLUSION: Moderate concentric left ventricle hypertrophy Normal left ventricle systolic function without wall motion abnormalities, ejection fraction 74% Left ventricle diastolic dysfunction Normal right ventricle size but reduced systolic function Mildly elevated right-sided pressure, RVSP 39 mmHg Mildly dilated left atrium and moderately dilated right atrium No significant valvular abnormalities Adult Echocardiography Procedure Report Left Ventricle LVEDD (3.7 - 5.6 cm): 4.27 cm LVESD (2.2 - 4.0 cm): 3.31 cm LVIVS thickness (0.6 - 1.2 cm): 1.36 cm LVPW thickness (0.5 - 1.0 cm): 1.41 cm e': 0.08 m/s E - e': 7.21 LVOT Max Gradient: 3.19 mm[Hg] LVOT Area (cm2): 0.89 m/s Peak Velocity (LVOT): 0.89 m/s Mean Velocity (LVOT): 0.52 m/s LVOT Diameter 2.44 cm Left Ventricular Ejection Fraction: 73.81 % Left Atrium LA Volume Index (2D A2C): 34.87 ml/m2 Left Atrium Systolic Dimension: 5.36 cm Mitral Valve MV E to A Ratio: 0.70 MV Max Gradient: MV Mean Gradient: Mitral Valve A-Wave Peak Velocity: 0.79 m/s Mitral Valve E-Wave Peak Velocity: 0.56 m/s Cardiovascular Orifice Area: Right Ventricle RV Internal Diastolic Dimension: Aorta AO Root Diam: 3.62 cm Ascending Ao Diam: Aortic Valve AoV Area (Peak Seng): 4.71 cm2, 4.71 cm2 AoV Area (VTI): 4.57 cm2, 4.57 cm2 Deceleration [place]: Pressure Half-Time: Peak Velocity(Antegrade Flow): 0.89 m/s Peak Gradient(Antegrade Flow): 3.13 mm[Hg] Mean Velocity(Antegrade Flow): 0.56 m/s Mean Gradient(Antegrade Flow): 1.52 mm[Hg] Velocity Time Integral: 21.41 cm Tricuspid Valve Peak Velocity (Regurgitant Flow): 2.80 m/s Peak Velocity: Pulmonic Valve Mean Gradient: 1.81 mm[Hg] Mean Velocity: 0.63 m/s Peak Velocity: 0.94 m/s, 1.06 m/s Peak Gradient: 3.55 mm[Hg], 4.52 mm[Hg] Right Atrium Right Atrium Systolic Pressure: 89.50 ml, 89.50 ml Dictated by: Ann Walls MD on 02/21/2025 at 14:32 Approved by: Ann Walls MD on 02/21/2025 at 14:40 Dictated By: Ann Walls M.D. Signed By: 02/21/25 144 DD/ 39 TD/TT: Airline Station Agent: Procedure Note Radiology, Radiologist, - 02/21/2025 [place] [address] Cardiology Report Signed Patient: ARIANNE MCQUEEN AMR#: [id number] : 1945cct:[id number] Age/Sex: 79 / MADM Date: 02/21/25 Loc: CARD Attending Dr: CATINA SALAZAR Ordering Physician: CATINA SALAZAR Date of Service: 02/21/25 Procedure(s): CA echo doppler complete Accession Number(s): [id number] cc: eTressa Sierra MOBILE DEVELOPER; CATINA SALAZAR Patient Name: ARIANNE MCQUEEN MR#: [id number] : 1945 Exam Date: 02/21/2025 Ordering Doctor: DR CATINA SALAZAR M.D. ECHOCARDIOGRAM REPORT PROCEDURE: CA ECHO DOPPLER COMPLETE INDICATIONS: Chronic diastolic heart failure, h/o pericardialeffusion, CABG, HI, COPD, hypertension, diabetes COMPARISON: None. DESCRIPTION: COMPLETE ECHOCARDIOGRAM Real-time transthoracic echocardiography with 2D, M-mode, spectral and color flow Dopplerperformed. QUALITY: Technical quality was good. LEFT VENTRICLE: Normal chamber size. Moderate concentric leftventricular hypertrophy. Normal left ventricle systolic function without wall motion abnormalities, calculated left ventricular ejection fraction is 74%. LV EF: Normal left ventricular ejection fraction, (>55%). DIASTOLIC: Left ventricle diastolic dysfunction ATRIAL SEPTUM: Appears intact LEFT ATRIUM: Mildly dilated RIGHT ATRIUM: Moderate dilatation. RIGHT VENTRICLE: Normal chamber size. Decreased right ventricularsystolic function. TRICUSPID VALVE: Normal mobility and thickness. No stenosis withtrivial regurgitation. Doppler studies reveal mildly (35-45) elevated right sided pressures.RVSP 39 mmHg MITRAL VALVE: Normal mobility and thickness. No evidence of mitralvalve stenosis. There is no mitral annular calcification. Trivial mitral regurgitation. AORTIC VALVE: Normal trileaflet appearance. Thickened aortic valve. Normal leaflet mobility. No evidence of aortic valve stenosis. No aortic regurgitation. AORTIC ROOT: Normal diameter and appearance. PULMONIC VALVE: Not well visualized. No stenosis. No regurgitation. PERICARDIUM: No evidence of pericardial effusion. IVC: Not well visualized. PLEURA: CONCLUSION: Moderate concentric left ventricle hypertrophy Normal left ventricle systolic function without wall motion abnormalities, ejection fraction 74% Left ventricle diastolic dysfunction Normal right ventricle size but reduced systolic function Mildly elevated right-sided pressure, RVSP 39 mmHg Mildly dilated left atrium and moderately dilated right atrium No significant valvular abnormalities Adult Echocardiography Procedure Report Left Ventricle LVEDD (3.7 - 5.6 cm): 4.27 cm LVESD (2.2 - 4.0 cm): 3.31 cm LVIVS thickness (0.6 - 1.2 cm): 1.36 cm LVPW thickness (0.5 - 1.0 cm): 1.41 cm e': 0.08 m/s E - e': 7.21 LVOT Max Gradient: 3.19 mm[Hg] LVOT Area (cm2): 0.89 m/s Peak Velocity (LVOT): 0.89 m/s Mean Velocity (LVOT): 0.52 m/s LVOT Diameter 2.44 cm Left Ventricular Ejection Fraction: 73.81 % Left Atrium LA Volume Index (2D A2C): 34.87 ml/m2 Left Atrium Systolic Dimension: 5.36 cm Mitral Valve MV E to A Ratio: 0.70 MV Max Gradient: MV Mean Gradient: Mitral Valve A-Wave Peak Velocity: 0.79 m/s Mitral Valve E-Wave Peak Velocity: 0.56 m/s Cardiovascular Orifice Area: Right Ventricle RV Internal Diastolic Dimension: Aorta AO Root Diam: 3.62 cm Ascending Ao Diam: Aortic Valve AoV Area (Peak Seng): 4.71 cm2, 4.71 cm2 AoV Area (VTI): 4.57 cm2, 4.57 cm2 Deceleration [place]: Pressure Half-Time: Peak Velocity(Antegrade Flow): 0.89 m/s Peak Gradient(Antegrade Flow): 3.13 mm[Hg] Mean Velocity(Antegrade Flow): 0.56 m/s Mean Gradient(Antegrade Flow): 1.52 mm[Hg] Velocity Time Integral: 21.41 cm Tricuspid Valve Peak Velocity (Regurgitant Flow): 2.80 m/s Peak Velocity: Pulmonic Valve Mean Gradient: 1.81 mm[Hg] Mean Velocity: 0.63 m/s Peak Velocity: 0.94 m/s, 1.06 m/s Peak Gradient: 3.55 mm[Hg], 4.52 mm[Hg] Right Atrium Right Atrium Systolic Pressure: 89.50 ml, 89.50 ml Dictated by: Ann Walls MD on 02/21/2025 at 14:32 Approved by: Ann Walls MD on 02/21/2025 at 14:40 Dictated By: Ann Walls M.D. Signed By:02/21/25 1441 DD/ 1440 TD/TT: Airline Station Agent: Generic External Data Provider [facility] Final Result documented in this encounter Visit Diagnoses Not on filedocumented in this encounter Additional Health Concerns Assessment Noted Time PHQ-9 Depression Total Score: 2 12/20/19 25 5:02 PM EDT documented as of this encounter Care Teams Circuit Designer Relationship Specialty Start Date End Date Mal Perez MD [address] [place] [address] PCP - External PCP Family Medicine 04/24/23 Gilberto Stockton MD [address] [place] [address] PCP - General Family Medicine 03/09/24 Gilberto Stockton MD [address] [place] [address] PCP - Medical [place] 08/24/2408/23 Teressa Sierra NP [address] [place] [phone] Nurse Practitioner Family Medicine 09/09/23 documented as of this encounter
--- OUTSIDE RECORDS SUMMARY | 2025-02-22 10:20 | XMS_ITS | Clinical Summary ---
Author Organization [facility] Address [address] [place] [address] Care Team Providers Care Heat Treating Operator Name Role Phone House, Mal Bolden MD Unavailable [phone] Teresas Sierra NP Unavailable [phone] Gilberto Stockton MD Primary Care Provider [phone] Gilberto Stockton MD Unavailable Allergies No known active allergies Medications amLODIPine (Norvasc) 5 MG tablet Take 5 mg by mouth in the morning. Active ASPIRIN 81 MG chewable tablet Chew 81 mg in the morning. Active isosorbide mononitrate ER (Imdur) 30 MG 24 hr tablet Take 30 mg by mouth in the morning. Do not crush or chew.. Active TraZODone & Diet Manage Prod (TRAZAMINE PO) Take 50 mg by mouth Active Blood Glucose Monitoring Suppl (True Metrix Go Glucose Meter) w/Device kit Active Lancets 33G misc Act alba albuterol HFA 90 mcg/act inhaler Inhale 2 puffs every 6 (six) hours if needed for shortness of breath or wheezing Active Lancets 33G misc 1 each Daily Active Blood Glucose Monitoring Suppl (True Metrix Air Glucose Meter) w/Device kit 1 each Daily Acti ve Trelegy Ellipta 100-62.5-25 MCG/ACT aerosol powder 1 puff by Other route Daily 4 Active glipiZIDE (Glucotrol) 5 MG tabletIndications: Type 2 diabetes mellitus without complication, without long-term current use of insulin (HCC) Take 0.5 tablets (2.5 mg) by mouth Daily 45 tablet 1 5 Active spironolactone (Aldactone) 25 MG tabletIndications: Localized edema Take 1 tablet (25 mg) by mouth Daily 90 tablet 1 5 Active atorvastatin (Lipitor) 40 MG tabletIndications: Atherosclerosis of [place] coronary artery of [place] heart without angina pectoris,Mixed hyperlipidemia,Cor onary artery disease involving [place] coronary artery of [place] heart without angina pectoris Take 1 tablet (40 mg) by mouth at bedtime Take 40 mg by mouth at bedtime 90 tablet 1 5 Active glucose blood (True Metrix Blood Glucose Test) test stripIndications:T ype 2 diabetes mellitus without complications (HCC) USE DIRECTED to test BLOOD SUGAR DAILY 50 strip 6 5 Active furosemide (Lasix) 40 MG tablet Take 40 mg by mouth Daily 5 Active celecoxib (CeleBREX) 200 MG capsuleIndications :Bilateral primary osteoarthritis of knee Take 1 capsule (200 mg) by mouth Daily 90 capsule 1 5 03/19/20 25 Active carvedilol (Coreg) 12.5 MG tabletIndications: Atherosclerotic heart disease of [place] coronary artery without angina pectoris Take 1 tablet (12.5 mg) by mouth in the morning and 1 tablet (12.5 mg) in the evening. Take with meals. 180 tablet 1 5 03/19/20 25 Active Active Problems Problem Noted Date Diagnosed Date Neoplasm of uncertain behavior 12/19/2024 Assessment & Plan (12/19/2024 7:01 PM EDT): Unclear etiology Will refer to dermatology Stasis edema with ulcer of both lower extremitie s 09/27/2024 Assessment & Plan (09/27/2024 7:13 AM EST): Diuretics, elevation, compression Skin ulcer of left pretibial region with fat lay er exposed 09/27/2024 Stasis dermatitis 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 hypertension 09/27/2024 Assessment & Plan (09/27/2024 4:23 PM EST): He has [facility] Nurse comes out few times per week for dressing changes Also sees Giselle Drew at [facility] for mgmt of wound Type 2 diabetes mellitus wit h diabetic chronic kidney disease 09/05/2024 Assessment & Plan (12/19/2024 5:26 PM EDT): Check blood sugars daily, notify if <70 [...] glipizide, cannot afford jardiance A1c 5.9% 12/19/24 Assessment & Plan (09/27/2024 7:14 AM EST): Check blood sugars daily, notify if <70 [...] 5.4% in 06/16 Type 2 diabetes mellitus wit h diabetic peripheral angiopathy without gangrene 09/05/2024 Assessment & Plan (12/19/2024 7:41 AM EDT): Check blood sugars daily, notify if <70 [...] diet low in carbohydrates, and simple sugars. Assessment & Plan (09/27/2024 7:13 AM EST): On asa, statin Mixed hyperlipidemia 06/01/2024 Assessment & Plan (09/27/2024 7:14 AM EST): Continue statin Check labs yearly and prn dose chagnes Prostate cancer screening 06/01/2024 Chronic kidney disease, stage 3a 03/14/2024 Assessment & Plan (09/27/2024 7:13 AM EST): Monitor labs yearly and prn Recommend adequate DM, HTN control, as well as heart failure Assessment & Plan (03/14/2024 7:51 AM EDT): Continue to monitor labs Body mass index (BMI) 45.0-49.9, adult Varicose veins of right lowe r extremity with ulcer of unspecified site (CODE) 03/14/2024 Aortic ectasia, unspecified site 03/14/2024 Assessment & Plan (03/14/2024 7:51 AM EDT): As per echo findings Lymphorrhea 12/17/2023 Lymphedema 12/17/2023 Arthritis of right hip 12/14/2023 Nicotine dependence 12/14/2023 Papillomatosis 12/14/2023 Venous stasis of both lower extremities 12/14/19 24 Assessment & Plan (03/14/2024 7:15 PM EDT): Stable at this time Encounter for subsequent chris [facility] wellness visit (AWV) in Medicare patient 12/14/2023 Assessment & Plan (12/19/2024 7:44 AM EDT): Reviewed Ht/Wt/BMI Recommend eye exam yearly Recommend dental exams twice a year Balance work/leisure activities Exercises is recommended most days of the week (appropriate as chronic conditions allow) Follow up yearly and prn Hand out on living will and health care POA given at his last AWV Assessment & Plan (12/14/2023 5:35 PM EDT): Reviewed Ht/Wt/BMI Recommend eye exam yearly Recommend dental exams twice a year Balance work/leisure activities Exercises is recommended most days of the week (appropriate as chronic conditions allow) Follow up yearly and prn Hand out on living will and health care POA given Morbid (severe) obesity due to excess calories 0 09/09/2023 Assessment & Plan (12/19/2024 7:01 PM EDT): Discussed with patient their BMI (actual, verses recommended). We have also discussed lifestyle modifications: attempts to perform physical activity as chronic conditions allow, also to monitor dietary intake: increasing protein/fruits/veggies and lowering carb intake (unless contraindicated). Limit sodas, juices, and sugary drinks. Activity difficult d/t multiple co morbidities Assessment & Plan (09/27/2024 7:14 AM EST): Discussed with patient their BMI (actual, verses recommended). We have also discussed lifestyle modifications: attempts to perform physical activity as chronic conditions allow, also to monitor dietary intake: increasing protein/fruits/veggies and lowering carb intake (unless contraindicated). Limit sodas, juices, and sugary drinks. Activity difficult d/t multiple co morbidities Sleep apnea 09/08/2023 Assessment & Plan (09/27/2024 4:20 PM EST): You have a diagnosis of obstructive sleep [...] in a year I did contact the [facility] Sleep lab ext [phone] to find out about scheduling the patient to see about an updated PAP machine: voicemail left at 16:20 on 09/27/24 Assessment & Plan (06/01/2024 4:58 PM EDT): Non compliant with PAP use, machine is broke , difficulty finding DME who takes his insurance I did leave a VM on Sleep [facility] regarding this for them to assist Assessment & Plan (12/14/2023 5:30 PM EDT): Follow with [facility] Sleep Lab Dr Amado, no machine use for last 6 months, it is not working and he is waiting for a new machine Chronic obstructive pulmonary disease, unspecifi ed 09/08/2023 Assessment & Plan (12/19/2024 7:40 AM EDT): Current meds: trelegy inhaler and albuterol inhaler Follows with pulmonology Dr Woodruff Assessment & Plan (09/27/2024 7:10 AM EST): Current meds: trelegy inhaler and albuterol inhaler Follows with pulmonology Dr Woodruff Assessment & Plan (06/01/2024 4:58 PM EDT): Continue with dr woodruff Needs a refill of trelegy , he needs to contact them Assessment & Plan (12/14/2023 5:31 PM EDT): Continue with dr woodruff 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 09/08/2023 Assessment & Plan (09/09/2023 4:09 PM EST): Continue with [facility] Vein and Body Myocardial infarction 09/08/2023 CAD (coronary artery disease) 09/08/2023 Assessment & Plan (12/19/2024 7:41 AM EDT): Continue current meds/dose Assessment & Plan (06/01/2024 4:59 PM EDT): Continue current meds/dose Assessment & Plan (12/14/2023 5:31 PM EDT): Follow with cardiology No active chest pain at this time Pt is not taking Jardiance he cannot afford the medication Constipation 09/08/2023 Osteoarthritis of both knees , unspecified osteoarthritis type 09/08/2023 Iron deficiency 09/08/2023 Diabetes mellitus, type II 09/08/2023 Assessment & Plan (06/01/2024 5:00 PM EDT): Cannot afford ozempic, although his sugars seem [...] diet low in carbohydrates, and simple sugars. Assessment & Plan (03/14/2024 7:17 PM EDT): >>ASSESSMENT AND PLAN FOR TYPE 2 DIABETES MELLITUS WITH DIABETIC CHRONIC KIDNEY DISEASE (HCC) ([facility]/HCC) WRITTEN ON 03/14/2024 7:17 PM BY TERESSA SIERRA NP Check blood sugars daily, notify if <70 [...] diet low in carbohydrates, and simple sugars. Will increase dose on ozempic to 0.5mg weekly Continue to monitor labs Assessment & Plan (12/14/2023 5:34 PM EDT): Check blood sugars daily, notify if <70 [...] cannot afford it Fu in 3 months Assessment & Plan (09/09/2023 4:09 PM EST): No A1c at this time, will recheck in 3 months Check blood sugars daily, notify if <70 [...] diet low in carbohydrates, and simple sugars. Hearing decreased 09/08/2023 Bilateral lower extremity edema 09/08/2023 Assessment & Plan (09/27/2024 7:13 AM EST): Continue spironolactone script Elevate legs as much as possible Limit sodium and wear compression stockings Assessment & Plan (12/14/2023 5:33 PM EDT): Continue spironolactone script Essential hypertension 09/08/2023 Assessment & Plan (12/19/2024 7:41 AM EDT): Please check blood pressure daily and record DASH diet Limit caffeine Take medication as directed Contact office if chest pain, pressure, dizziness, shortness of breath, swelling legs Recommend slow position changes Current meds: amlodipine, carvedilol, aldactone Assessment & Plan (09/27/2024 7:12 AM EST): Please check blood pressure daily and record DASH diet Limit caffeine Take medication as directed Contact office if chest pain, pressure, dizziness, shortness of breath, swelling legs Recommend slow position changes Current meds: amlodipine, carvedilol, aldactone Assessment & Plan (06/01/2024 4:59 PM EDT): At goal no dose changes Assessment & Plan (03/14/2024 7:16 PM EDT): Stable at this time No med dose changes Assessment & Plan (12/14/2023 5:32 PM EDT): At goal no changes in meds or doses Assessment & Plan (09/09/2023 4:09 PM EST): No med dose changes at this time Solitary pulmonary nodule 06/05/2023 Chronic diastolic (congestive) heart failure Assessment & Plan (09/27/2024 7:12 AM EST): Follows with [facility] Current meds: asa, statin, b fitz, imdur, aldactone, amlodipine Assessment & Plan (12/14/2023 5:32 PM EDT): Continue with cardiology Not able to afford the jardiance script Pericardial effusion ([facility]-HCC) 08/29/2021 Atherosclerosis of [place] co ronary artery of [place] heart without angina pectoris 08/29/2021 Assessment & Plan (09/27/2024 7:11 AM EST): Current meds: asa, statin, b fitz, imdur, aldactone, Cardiology: [facility] [place] Cough 07/03/2021 Other ventricular tachycardia 07/03/2021 Assessment & Plan (09/27/2024 7:12 AM EST): Noted on holter in 2020 Cont per cardiology Assessment & Plan (03/14/2024 7:51 AM EDT): Noted on holter in 2020 Cont per cardiology Syncope and collapse 03/20/2021 MGUS (monoclonal gammopathy of unknown significa nce) 08/19/2012 Peripheral vascular disease, unspecified 012 Assessment & Plan (03/14/2024 7:50 AM EDT): Had SILVIA's in early 2023 Resolved Problems Problem Noted Date Diagnosed Date Resolved Date Chronic kidney disease, stage 2 (mild) 09/05/2024 09/05/2024 Type 2 diabetes mellitus wit h other skin ulcer (CODE) 03/14/2024 03/14/2024 Non-pressure chronic ulcer o f unspecified part of unspecified lower leg with unspecified severity 03/14/2024 09/05/2024 Assessment & Plan (03/14/2024 7:51 AM EDT): Under the care of wound Venous stasis ulcer of right lower extremity 4 09/27/2024 Hypercholesterolemia 09/08/2023 024 Edema 07/03/2021 06/01/2024 History of coronary artery bypass surgery 07/03/2021 09/27/2024 Encounters Date Type Department Care Team Description 02/21/2025 Clinisync Result Encounter [facility] External Department Unsolicited Provider, Generic External Data 02/21/2025 Clinisync Result Encounter [facility] External Department Unsolicited Provider, Generic External Data 02/13/2025 Results Follow-Up [facility] [address] [place] [phone] Yadi Malik MD 02/08/2025 1:00 PM EDT Office Visit [facility] [address] [place] [phone] Yadi Malik MD Neoplasm of unspecified behavior of bone, soft tissue, and skin (Primary Dx) 02/08/2025 Bamboo flowsheet [facility] [address] [place] [phone] Yadi Malik MD 02/08/2025 Travel 02/07/2025 Telephone [facility] [address] [place] [address] Teressa Sierra NP 01/12/2025 Clinisync Result Encounter [facility] External Department Unsolicited Provider, Generic External Data 01/06/2025 Telephone [facility] [address] [place] [address] Génesis Donaldson LPN Results 01/03/2025 Results Follow-Up [facility] [address] [place] [phone] Brenna Dangelo PA 12/30/2024 Clinisync Result Encounter [facility] External Department Unsolicited Provider, Generic External Data 12/28/2024 10:30 AM EDT Office Visit [facility] [address] [place] [address] Brenna Dangelo PA Epidermal inclusion cyst (Primary Dx); Neoplasm of unspecified behavior of bone, soft tissue, and skin 12/28/2024 Bamboo flowsheet [facility] [address] [place] [address] Brenna Dangelo PA 12/28/2024 Travel 12/19/2024 4:30 PM EDT Office Visit [facility] [address] [place] [address] Teressa Sierra NP Encounter for subsequent annual wellness visit (AWV) in Medicare patient (Primary Dx); Chronic obstructive pulmonary disease, unspecified COPD type (HCC); Coronary artery disease involving [place] coronary artery of [place] heart without angina pectoris ; Essential hypertension; Type 2 diabetes mellitus with stage 3 chronic kidney disease, without long-term current use of insulin, unspecified whether stage 3a or 3b CKD (HCC); Neoplasm of uncertain behavior; Body mass index (BMI) 45.0-49.9, adult ([facility]); Morbid (severe) obesity due to excess calories ([facility]) 12/19/2024 Refill [facility] [address] [place] [address] Teressa Sierra NP Bilateral primary osteoarthritis of knee; Atherosclerotic heart disease of [place] coronary artery without angina pectoris 12/06/2024 Patient Outreach [facility] [address] [place] [address] Gertrude Velásquez LSW from Last 3 Months Family History Medical History Relation Name Comments Stroke Brother Diabetes Father Heart disease Father Hypertension Father Diabetes Mother Heart disease Mother Hypertension Mother Cancer Sister Pulmonary embolism Sister Relation Name Status Comments Brother Father Mother Sister Social History Tobacco Use Types Packs/Day Years [...] 12/14/2023 How often do you attend chur or islam services? Never 12/14/2023 Do you belong to any clubs o r organizations such as restoration groups, unions, fraternal or athletic groups, or [...] when you are drinking? 5 or 6 4 Q3: How often do you have si x or more drinks on one occasion? Daily or almost daily 12/14/2023 Overall Financial Resource Strain (CARDIA) Answe r Date Recorded How hard is it for you to pa y for the very basics like food, housing, medical care, and heating? Not very hard 12/14/2023 PHQ-2 Answer Date Recorded Patient Health Questionnaire-2 Score 0 12/19/2024 [facility] - Occupational Stress [...] place to sleep or slept in a detention (including now)? No 12/14/2023 Sex and Gender Information Value Date Recorded Sex Assigned at Not on file Legal Sex Male 7:08 PM EDT Gender Identity Not on file Sexual Orientation Not on file Last Filed Vital Signs Vital Sign Reading Time Taken Comments Blood Pressure 112/66 12/19/2024 4:59 PM EDT Pulse 59 12/19/2024 4:59 PM EDT Temperature 36.6 C (97.8 F) 12/19/2024 4:59 PM EDT Respiratory Rate 26 12/19/2024 4:59 PM EDT Oxygen Saturation 94% 12/19/2024 4:59 PM EDT Inhaled Oxygen Concentration - - Weight 147 kg (323 lb 6.4 oz) 12/19/2024 4:59 PM EDT Height 179.1 cm (5' 10.5 ) 09/27/2024 2:06 PM ES T Body Mass Index 45.75 09/27/2024 2:06 PM EST Plan of Treatment Upcoming Encounters Date Type Department Care Team (Late st Contact Info) Description 03/21/2025 3:00 PM EDT Office Visit [facility] [address] [place] [address] Teressa Sierra, [facility] [address] [place] [phone] 08/10/2025 1:00 PM EST Office Visit [facility] [address] [place] [address] Brenna Dangelo PA [address] [place] [phone] 12/25/2025 4:30 PM EDT Office Visit [facility] [address] [place] [phone] Teressa Sierra, [employer] [address] [place] [phone] Health Maintenance Due Date Last Done Comments Pneumococcal Vaccine: 65+ Ye ars (1 of 2 - PCV) 1964 Diabetes: Urine Protein Screening 06/16/2025 024, 05/20/2023 Diabetes: Hemoglobin A1C 06/20/2025 025, 06/16/2024, 12/17/2023, Additional history exists Diabetes: Retinopathy Screening 08/24/2025 Medicare Annual Wellness (AWV) 12/19/2025 0 12/19/2024, 12/19/2024, 12/14/2023, Additional history exists Influenza Vaccine Discontinued Procedures Procedure Name Priority Date/Time Associated Diagnosis Comments CA ECHO DOPPLER COMPLETE 025 2:40 PM EDT ALL BASIC METABOLIC PANEL Routine 02/21/2025 12:26 PM EDT SKIN REPAIR Routine 02/08/2025 1:04 PM EDT Neoplasm of unspecified behavior of bone, soft tissue, and skin SKIN EXCISION Routine 02/08/2025 1:04 PM EDT Neoplasm of unspecified behavior of bone, soft tissue, and skin DERMATOPATHOLOGY EXAM Routine 02/08/2025 12:00 AM EDT Neoplasm of unspecified behavior of bone, soft tissue, and skin ALL BASIC METABOLIC PANEL Routine 01/12/2025 9:23 AM EDT ALL PRO BNP Routine 12/30/2024 4:55 PM EDT ALL BASIC METABOLIC PANEL Routine 12/30/2024 4:55 PM EDT SKIN / NAIL BIOPSY Routine 12/28/2024 10 :52 AM EDT Neoplasm of unspecified behavior of bone, soft tissue, and skin DERMATOPATHOLOGY EXAM Routine 12/28/2024 12:00 AM EDT Neoplasm of unspecified behavior of bone, soft tissue, and skin POCT GLYCOSYLATED HEMOGLOBIN (HGB A1C) Routine 12/19/2024 5:29 PM EDT Type 2 diabetes mellitus with stage 3 chronic kidney disease, without long-term current use of insulin, unspecified whether stage 3a or 3b CKD (HCC) from Last 3 Months Results * CA ECHO DOPPLER COMPLETE (02/21/2025 2:40 PM EDT) Anatomical Region Laterality Modality Other 02/21/2025 2:40 PM EDT Narrative 02/21/2025 2:41 [place] [address] Cardiology Report Signed Patient: ARIANNE MCQUEEN MR#: [id number] : 1945 Acct:[id number] Age/Sex: 79 / M ADM Date: 02/21/25 Loc: CARD Attending Dr: CATINA SALAZAR Ordering Physician: CATINA SALAZAR Date of Service: 02/21/25 Procedure(s): CA echo doppler complete Accession Number(s): [id number] cc: Teressa Sierra RACK CLEANER; CATINA SALAZAR Patient Name: ARIANNE MCQUEEN MR#: [id number] : 1945 Exam Date: 02/21/2025 Ordering Doctor: DR CATINA SALAZAR M.D. ECHOCARDIOGRAM REPORT PROCEDURE: CA ECHO DOPPLER COMPLETE INDICATIONS: Chronic diastolic heart failure, h/o pericardial effusion, CABG, VT, COPD, hypertension, diabetes COMPARISON: None. DESCRIPTION: COMPLETE [...] Area (VTI): 4.57 cm2, 4.57 cm2 Deceleration Yell: Pressure Half-Time: Peak Velocity(Antegrade Flow): 0.89 m/s [...] on 02/21/2025 at 14:40 Dictated By: Ann Walsl M.D. Signed By: 02/21/25 144 DD/ 144 TD/TT: Static Balancer: Procedure Note Radiology, Radiologist, - 02/21/2025 [place] [address] Cardiology Report Signed Patient: ARIANNE MCQUEEN AMR#: [id number] : 1945cct:[id number] Age/Sex: 79 / MADM Date: 02/21/25 Loc: CARD Attending Dr: CATINA SALAZAR Ordering Physician: CATINA SALAZAR Date of Service: 02/21/25 Procedure(s): CA echo doppler complete Accession Number(s): [id number] cc: Teressa Sierra RACK CLE[employer]ER; CATINA SALAZAR Patient Name: ARIANNE MCQUEEN MR#: [id number] : 1945 Exam Date: 02/21/2025 Ordering Doctor: DR CATINA SALAZAR M.D. ECHOCARDIOGRAM REPORT PROCEDURE: CA ECHO DOPPLER COMPLETE INDICATIONS: Chronic diastolic heart failure, h/o pericardialeffusion, CABG, VT, COPD, hypertension, diabetes COMPARISON: None. DESCRIPTION: COMPLETE [...] Area (VTI): 4.57 cm2, 4.57 cm2 Deceleration Yell: Pressure Half-Time: Peak Velocity(Antegrade Flow): 0.89 m/s [...] M.D. Signed By:02/21/25 1441 DD/ 1440 TD/TT: Static Balancer: Generic External Data Provider [facility] Final Result * (ABNORMAL) ALL BASIC METABOLIC PANEL (02/21/2025 12:26 PM EDT) Only the most recent of3 resultswithin the time period is included. SODIUM 134(L) 136 - 145 mmol/L [facility] POTASSIUM 4.8 3.5 - 5.1 mmol/L [facility] CHLORIDE 98 98 - 107 mmol/L [facility] CARBON DIOXIDE 28.9 21.0 - 32.0 mmol/L [facility] ANION GAP 11.9 [facility] GLUCOSE 141(H) 74 - 106 mg/dL [facility] BLOOD UREA NITROGEN 39.0(H) 7.0 - 18.0 mg/dL [facility] CREATININE 1.70(H) 0.70 - 1.30 mg/dL [facility] EGFR-AF LAO 47(L) >=60 mL/min/1.7 3m 2 TBH TBH EGFR-NON AF LAO 39(L) >=60 mL/min/1.7 3m 2 [facility] BUN CREATININE RATIO 22.9 [facility] CALCIUM 8.9 8.5 - 10.1 mg/dL [facility] 02/21/2025 12:2 6 PM EDT 02/21/2025 12:33 PM EDT Narrative [facility] - 02/21/2025 1:31 PM EDT Generic External Data Provider EVA jane Result [facility] * Skin repair (02/08/2025 1:04 PM EDT) [...] us Yadi Malik MD DERM PROCEDURE ORDERABLES [facility] al Result * Dermatopathology exam (02/08/2025 12:00 AM EDT) Only the most recent of2 resultswithin the time period is included. SPECIMEN TYPE --- SPECIMEN: RIGHT ANTERIOR NECK --- [facility] ICD10 Code C44.41 [facility] PROTOCOL EXC - EXCISION [facility] Final Diagnosis SCAR AND WOUND REPAIR REACTION, EXCISED (SEE COMMENT). 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 This case is reviewed in conjunction with the accompanying prior biopsy as listed in the case history summary. [facility] Gross Text 0.2x0.2cm scar 0.4cm from margin 3 blocks, (tips in 1) (4 in 2) (3 in 3) (jsusana/lanny) (02/10/25) [facility] Microscopic Description Microscopic examination performed. 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 Check Margins: Yes Previous accession number: [id number] us Yadi Malik MD LAB PATHOLOGY ORDERABLES Eboni l Result [facility] * ALL PRO BNP (12/30/2024 4:55 PM EDT) NT PRO B TYPE NATRIURETIC PEPT 464.0 <=1,800.0 pg/mL TB 12/30/2024 4:55 PM EDT 12/30/2024 4:56 PM EDT Narrative [facility] - 12/30/2024 6:05 PM EDT Generic External Data Provider [facility] F buck Result [facility] * Lesion biopsy (12/28/2024 10:52 AM EDT) Narrative Debora Gould MA - 12/28/2024 10:52 AM EDT Type of biopsy: tangential Informed consent: discussed [...] taken Amount of lidocaine used: 2.0 cc Brenna FISH DERM PROCEDURE ORDERABLES Eboni antunez Result * (ABNORMAL) POCT glycosylated hemoglobin (Hb A1C) docked device (12/19/2024 5:29 PM EDT) Hemoglobin A1C 5.9 Blood Venous blood specimen / Unknown 12/19/2024 5:29 PM EDT Teressa Sierra [employer] CLEANER POINT OF CARE TEST ENTER/EDIT O RDERABLES Final Result from Last 3 Months Insurance [employer] MEDIC[employer] Care Teams Heat Treating Operator Relationship Specialty Start Date End Date Mal Perez MD [address] [place] [address] PCP - External PCP Family Medicine 04/24/23 Gilberto Stockton MD [address] [place] [address] PCP - General Family Medicine 03/09/24 Gilberto Stockton MD [address] [place] [address] PCP - Medical [place] 08/24/2408/23 Teressa Sierra NP [address] [place] [address] Nurse Practitioner Family Medicine 09/09/23
--- OUTSIDE RECORDS SUMMARY | 2025-02-22 10:20 | XMS_ITS | Encounter Summary ---
Author Organization [facility] Address [address] [facility] [place] [address] Care Team Providers Care Steam Oven Operator Name Role Phone House, Mal Bolden MD Unavailable [phone] Gilberto Stockton MD Unavailable Teressa Sierra ELEMENTARY ART TEACHER Unavailable [phone] Gilberto Stockton MD Primary Care Provider [phone] Gilberto Stockton MD Unavailable Encounter Details Date Type Department Care Team (Late st Contact Info) Description 11/05/2023 Orders Only [facility] [address] [place] [address] Teressa Sierra, ELEMENTARY ART TEACHER [address] [place] [address] Social History Tobacco Use Types Packs/Day Years [...] 03/21/2025 3:00 PM EDT Office Visit [facility] [address] [place] [address] Teressa Sierra, CUAUHTEMOC [address] [place] [address] 08/10/2025 1:00 PM EST Office Visit [facility] [address] [place] [address] Brenna Dagnelo PA [address] [place] [address] 12/25/2025 4:30 PM EDT Office Visit [facility] [address] [place] [address] Teressa Sierra, CUAUHTEMOC [address] [place] [address] documented as of this encounter Procedures Procedure Name Priority Date/Time Associated Diagnosis Comments ECHO TRANSTHORACIC W/ DOPPLER Routine 11/04/2023 8:14 AM EDT documented in this encounter Results * ECHO TRANSTHORACIC W/ DOPPLER (11/04/2023 8:14 AM EDT) Anatomical Region Laterality Modality Radiographic Aminta ging us Teressa Sierra NP IMG XR PROCEDURES Final Result documented in this encounter Visit Diagnoses Not on filedocumented in this encounter Care Teams Steam Oven Operator Relationship Specialty Start Date End Date Mal Perez MD [address] [facility] [place] [place] [address] PCP - External PCP Family Medicine 04/24/23 Gilberto Stockton MD [address] [place] [address] PCP - Devoted 08/24/23 08/23/24 Gilberto Stockton MD [address] [place] [address] PCP - General Family Medicine 03/09/24 Gilberto Stockton MD [address] [place] [address] PCP - Medical [facility] 08/24/2408/23 Teressa Sierra NP [address] [place] [address] Nurse Practitioner Family Medicine 09/09/23 documented as of this encounter
--- OUTSIDE RECORDS SUMMARY | 2025-02-22 10:20 | XMS_ITS | Encounter Summary ---
Author Organization [facility] Address [address] [place] [address] Care Team Providers Care Mustanger Name Role Phone House, Mal Bolden MD Unavailable [phone] Teressa Sierra NP Unavailable [phone] Gilberto Stockton MD Primary Care Provider [phone] Gilberto Stockton MD Unavailable Encounter Details Date Type Department Care Team (Latest Contact Info) Description 02/08/2025 Travel Social History Tobacco Use Types Packs/Day Years [...] often do you attend chur ch or episcopal services? Never 12/14/2023 Do you belong to any clubs o r organizations such as jehovah's witness groups, unions, fraternal or athletic groups, or [...] Recorded Patient Health Questionnaire-2 Score 0 12/19/2024 [facility] - Occupational Stress [...] place to sleep or slept in a chcf (including now)? No 12/14/2023 Sex and Gender Information Value Date Recorded Sex Assigned at Not on file Legal Sex Male 7:08 PM EDT Gender Identity Not on file Sexual Orientation Not on file documented as of this encounter Plan of Treatment Upcoming Encounters Date Type Department Care Team (Late st Contact Info) Description 03/21/2025 3:00 PM EDT Office Visit [facility] [address] [place] [address] Teressa Sierra, CUAUHTEMOC [address] [place] [address] 08/10/2025 1:00 PM EST Office Visit [facility] [address] [place] [address] Brenna Dangelo PA [address] [place] [address] 12/25/2025 4:30 PM EDT Office Visit [facility] [address] [place] [phone] Teressa Sierra, CUAUHTEMOC [address] [place] [address] documented as of this encounter Visit Diagnoses Not on filedocumented in this encounter Additional Health Concerns Assessment Noted Time PHQ-9 Depression Total Score: 2 12/20/19 25 5:02 PM EDT documented as of this encounter Care Teams Mustanger Relationship Specialty Start Date End Date Mal Perez MD [address] [place] [address] PCP - External PCP Family Medicine 04/24/23 Gilberto Stockton MD [address] [place] [address] PCP - General Family Medicine 03/09/24 Gilberto Stockton MD [address] [place] [address] PCP - Medical [facility] 08/24/2408/23 Teressa Sierra NP [address] [place] [address] Nurse Practitioner Family Medicine 09/09/23 documented as of this encounter
--- OUTSIDE RECORDS SUMMARY | 2025-02-22 10:20 | XMS_ITS | Clinical Summary ---
Author Organization [facility] Address [id number] [address] [place] [address] Care Team Providers Care Associate Professor Of Library Media Name Role Phone Mal Perez DO Primary Care Provider [phone] Allergies No known active allergies Medications ferrous sulfate 325 (65 FE) mg tablet Take 325 mg by mouth daily with breakfast. Active clopidogreL (PLAVIX) 75 mg tablet Take 75 mg by mouth daily. Active aspirin 81 mg Take 81 mg by mouth daily. Active atorvastatin (LIPITOR) 40 mg tablet Take 40 mg by mouth nightly. Active furosemide (LASIX) 40 mg tablet Take 1 tablet (40 mg total) by mouth 2 (two) times a day before meals. 60 tablet 2 09/03/2021 Active carvediloL (COREG) 12.5 mg tablet Take 1 tablet (12.5 mg total) by mouth 2 (two) times a day. 60 tablet 11 09/03/2021 Active dexAMETHasone (DECADRON) 6 mg tablet Take 1 tablet (6 mg total) by mouth daily. 4 tablet 09/04/2021 Active spironolactone (ALDACTONE) 25 mg tablet Take 1 tablet (25 mg total) by mouth daily. 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 08/29/2021 Immunizations No known immunizations Family History Medical History Relation Name Comments Heart disease Mother Relation Name Status Comments Father [...] Sign Reading Time Taken Comments Blood Pressure 130/80 09/03/2021 12:00 PM EST Pulse 62 09/03/2021 12:00 PM EST Temperature 36.8 C (98.2 F) 09/03/2021 12:00 PM EST Respiratory Rate 22 09/03/2021 12:00 PM EST Oxygen Saturation 93% 09/03/2021 12:00 PM EST Inhaled Oxygen Concentration - - Weight 122.5 kg (270 lb 1 oz) 09/03/2021 12:36 A M EST Height 177.8 cm (5' 10 ) 08/29/2021 1:00 AM EST Body Mass Index 38.75 08/29/2021 1:00 AM EST Plan of Treatment Health Maintenance Due Date Last Done Comments Depression Screening 1957 Tobacco Screening 1957 DTaP,Tdap and Td Vaccines (1 - Tdap) 1963 Zoster (Shingles) Vaccine (1 of 2) 1994 Fall Risk Screening 2009 Influenza Vaccine 04/24/2025 Goals Goal Patient Goal Type Associated Problems Recent Progress Patient-Stated? Author <enter goal here> General Yes Arpita King, RN Note: Evaluation of progress towards goal: home self care Medical Devices Not on file Insurance MEDICARE Advance Directives * Full Code (Latest Code Status on File) Date Activated Date Inactivated Comments 08/29/2021 2:06 AM 09/03/2021 8:28 PM Care Teams Associate Professor Of Library Media Relationship Specialty Start Date End Date Mal Perez DO PCP - General Family Medicine 08/24/21
--- OUTSIDE RECORDS SUMMARY | 2025-02-22 10:20 | XMS_ITS | Encounter Summary ---
Author Organization [facility] Address [address] [place] [address] Care Team Providers Care Tear Down Matcher Name Role Phone House, Mal Bolden MD Unavailable [phone] Teressa Sierra NP Unavailable [phone] Gilberto Stockton MD Primary Care Provider [phone] Gilberto Stockton MD Unavailable Encounter Details Date Type Department Care Team (Late st Contact Info) Description 02/13/2025 Results Follow-Up [facility] [address] [facility] [address] [place] [address] Yadi Malik MD [address] [facility] [address] [place] [address] Social History Tobacco Use Types [...] often do you attend chur ch or holiness services? Never 12/14/2023 Do you belong to any clubs o r organizations such as uatsdin groups, unions, fraternal or athletic groups, or [...] Recorded Patient Health Questionnaire-2 Score 0 12/19/2024 [facility] - Occupational Stress Questionnaire Answer Date [...] place to sleep or slept in a long-term (including now)? No 12/14/2023 Sex and Gender [...] Office Visit [facility] [address] [place] [address] Teressa Sierra NP [address] [place] [address] 08/10/2025 1:00 PM EST Office Visit [facility] [address] [place] [address] Brenna Dangelo PA [address] [place] [address] 12/25/2025 4:30 PM EDT Office Visit [facility] [address] [place] [address] Teressa Sierra, CUAUHTEMOC [address] [place] [address] documented as of this encounter Visit Diagnoses Not on filedocumented in this encounter Additional Health Concerns Assessment Noted Time PHQ-9 Depression Total Score: 2 12/20/19 25 5:02 PM EDT documented as of this encounter Care Teams Tear Down Matcher Relationship Specialty Start Date End Date Mal Perez MD [address] [place], [place] [address] PCP - External PCP Family Medicine 04/24/23 Gilberto Stockton MD [address] [place] [address] PCP - General Family Medicine 03/09/24 Gilberto Stockton MD [address] [place] [address] PCP - Medical [facility] 08/24/2408/23 Teressa Sierra NP [address] [place] [address] Nurse Practitioner Family Medicine 09/09/23 documented as of this encounter
--- OUTSIDE RECORDS SUMMARY | 2025-02-22 10:20 | XMS_ITS | Clinical Summary ---
Author Organization [facility] Address [address] [place] [address] Care Team Providers Care Automation Machine Operator Name Role Phone Unavailable Primary Care Provider Unavailabl e Social History Tobacco Use Types Packs/Day Years Used Date Smoking Tobacco: Never Assessed Sex and Gender Information Value Date Recorded Sex Assigned at Not on file Legal Sex Male 7:40 PM EDT Gender Identity Not on file Sexual Orientation Not on file Plan of Treatment Not on file Insurance [facility] MEDICARE
--- OUTSIDE RECORDS SUMMARY | 2025-02-22 10:20 | XMS_ITS | Encounter Summary ---
Author Organization [facility] Address [address] [place] [address] Care Team Providers Care Bond Analyst Name Role Phone House, Mal Bolden MD Unavailable [phone] Teressa Sierra NP Unavailable [phone] Gilberto Stockton MD Primary Care Provider [phone] Gilberto Stockton MD Unavailable Encounter Details Date [...] any clubs o r organizations such as yazidi groups, unions, fraternal or athletic groups, or [...] Recorded Patient Health Questionnaire-2 Score 0 12/19/2024 [facility] Occupat ional Health - [...] place to sleep or slept in a prison (including now)? No 12/14/2023 Sex and Gender [...] Visit [facility] [address] [address] Teressa Sierra, CUAUHTEMOC [address] [place] [address] 08/10/2025 1:00 PM EST Office Visit [facility] [address] [place] [address] Brenna Dangelo PA [address] [place] [address] 12/25/2025 4:30 PM EDT Office Visit [facility] [address] [place] [phone] Teressa Sierra NP [address] [place] [address] documented as of this encounter Procedures Procedure Name Priority Date/Time Associated Diagnosis Comments ALL BASIC METABOLIC PANEL Routine 02/21/2025 12:26 PM EDT documented in this encounter Results * (ABNORMAL) ALL BASIC METABOLIC PANEL (02/21/2025 12:26 PM EDT) SODIUM 134(L) 136 - 145 mmol/L [facility] POTASSIUM 4.8 3.5 - 5.1 mmol/L [facility] CHLORIDE 98 98 - 107 mmol/L [facility] CARBON DIOXIDE 28.9 21.0 - 32.0 mmol/L [facility] ANION GAP 11.9 [facility] GLUCOSE 141(H) 74 - 106 mg/dL [facility] BLOOD UREA NITROGEN 39.0(H) 7.0 - 18.0 mg/dL [facility] CREATININE 1.70(H) 0.70 - 1.30 mg/dL [facility] EGFR-AF [place] 47(L) >=60 mL/min/1.7 3m 2 TB[facility] EGFR-NON AF [place] 39(L) >=60 mL/min/1.7 3m 2 [facility] BUN CREATININE RATIO 22.9 [facility] CALCIUM 8.9 8.5 - 10.1 mg/dL [facility] 02/21/2025 12:2 6 PM EDT 02/21/2025 12:33 PM EDT Narrative [facility] - 02/21/2025 1:31 PM EDT us Generic External Data Provider [facility] F inal Result [facility] documented in this encounter Visit Diagnoses Not on filedocumented in this encounter Additional Health Concerns Assessment Noted Time PHQ-9 Depression Total Score: 2 12/20/19 25 5:02 PM EDT documented as of this encounter Care Teams Bond Analyst Relationship Specialty Start Date End Date Mal Perez MD [address] [place], [place] [phone] PCP - External PCP Family Medicine 04/24/23 Gilberto Stockton MD [address] [place] [address] PCP - General Family Medicine 03/09/24 Gilberto Stockton MD [address] [place] [address] PCP - Medical [facility] 08/24/2408/23 Teressa Sierra NP [address] [place] [address] Nurse Practitioner Family Medicine 09/09/23 documented as of this encounter
--- OUTSIDE RECORDS SUMMARY | 2025-02-22 10:20 | XMS_ITS | Encounter Summary ---
Author Organization [facility] Address [address] [place] [address] Care Team Providers Care Sport Shoe Spike Assembler Name Role Phone House, Mal Bolden MD Unavailable [phone] Gilberto Stockton MD Unavailable Teressa Sierra NP Unavailable [phone] Gilberto Stockton MD Primary Care Provider [phone] Gilberto Stockton MD Unavailable Encounter Details Date Type Department Care Team (Late st Contact Info) Description 03/23/2024 Clinisync Result Encounter [facility] External Department Unsolicited [...] often do you attend chur ch or islam services? Never 12/14/2023 Do you belong to any clubs o r organizations such as pentecostal groups, unions, fraternal or athletic groups, or [...] Answer Date Recorded Patient Health Questionnaire-2 Score 1 12/14/2023 [facility] - Occupational Stress Questionnaire Answer Date Recorded [...] Office Visit [facility] [address] [place] [address] Teressa Sierra NP [address] [place] [address] 08/10/2025 1:00 PM EST Office Visit [facility] [address] [place] [address] Brenna Dangelo PA [address] [place] [address] 12/25/2025 4:30 PM EDT Office Visit [facility] [address] [place] [address] Teressa Sierra NP [address] [place] [address] documented as of this encounter Procedures Procedure Name Priority Date/Time Associated Diagnosis Comments NM LUIGI PERF SPECT REST STR 03/23/2024 2:57 PM EDT documented in this encounter Results * NM LUIGI PERF SPECT REST STR (03/23/2024 2:57 PM EDT) Anatomical Region Laterality Modality Other 03/23/2024 2:57 PM EDT Narrative 03/23/2024 2:58 [place] [address] Nuclear Medicine Report Signed Patient: ARIANNE MCQUEEN MR#: [id number] : 1945 Acct:[id number] Age/Sex: 78 / M ADM Date: 03/17/24 Loc: [place] Attending Dr: ARIELLA GALLEGO APRN Ordering Physician: ARIELLA GALLEGO APRN Date of Service: 03/17/24 Procedure(s): NM luigi perf SPECT rest str Accession Number(s): [id number] cc: Teressa Sierra COLLEGE DEAN; ARIELLA GALLEGO APRN Patient Name: ARIANNE MCQUEEN MR#: [id number] : 1945 Exam Date: 03/17/2024 Ordering Doctor: ARIELLA GALLEGO SLAB LIFTING SUPERVISOR RADIOLOGY REPORT PROCEDURE: NM LUIGI PERF SPECT REST STR COMPARISON: None. INDICATIONS: DYSPNEA TECHNIQUE: Exam Description: Stress/Rest two day protocol gated SPECT Rest Imagin.2 mCi Tc-99m Cardiolite IV on 03/17/2024 Stress Imaging 26.6 mCi Tc-99m Cardiolite IV on 03/23/2024 Exercise Protocol: 0.4 mg Lexiscan given IV Heart Rate (bpm): Rest: 60 Max: 81 PMHR: 57 Blood Pressure: Rest: 140/68 Max: 142/78 Symptoms: Rest and peak stress ECG findings were pending and the exercise portion of the study was pending per attending physician Dr. RAMIREZ . For more details please see separate cardiac stress test report. FINDINGS: QUALITY OF STUDY: Good. PERFUSION DEFECT: LOCATION: Apical anterior. [place]. SIZE: Small (1-2 segments). SEVERITY: Mild. TYPE: Persistent. WALL MOTION: Normal. LV SIZE: Enlarged; EDV 124 mL. TID / TCD: None; 1.0 LVEF: Normal. Calculated EF 62%. SUMMARY: Myocardial perfusion imaging study has ABNORMAL findings. CONCLUSION: 1. Small fixed defect in the anterior wall, LAD distribution 2. No reversible ischemia 3. Dilated left ventricle, end-diastolic volume 124 milliliters 4. Pending exercise test results Dictated by: Austin Banks MD on 03/23/2024 at 14:55 Approved by: Austin Banks MD on 03/23/2024 at 14:57 Dictated By: Austin Banks M.D. Signed By: 03/23/24 1458 DD/ 56 TD/TT: Bass Viol Repairer: Procedure Note Radiology, Radiologist, - 03/23/2024 [place] [address] Nuclear Medicine Report Signed Patient: ARIANNE MCQUEEN AMR#: [id number] : 1945cct:[id number] Age/Sex: 78 / MADM Date: 03/17/24 Loc: [place] Attending Dr: ARIELLA GALLEGO APRN Ordering Physician: ARIELLA GALLEGO APRN Date of Service: 03/17/24 Procedure(s): NM luigi perf SPECT rest str Accession Number(s): [id number] cc: Teressa Sierra COLLEGE DEAN; ARIELLA GALLEGO APRN Patient Name: ARIANNE MCQUEEN MR#: [id number] : 1945 Exam Date: 03/17/2024 Ordering Doctor: ARIELLA GALLEGO CNP RADIOLOGY REPORT PROCEDURE: NM LUIGI PERF SPECT REST STR COMPARISON: None. INDICATIONS: DYSPNEA TECHNIQUE: Exam Description: Stress/Rest two day protocol gated SPECT Rest Imagin.2 mCi Tc-99m Cardiolite IV on 03/17/2024 Stress Imaging 26.6 mCi Tc-99m Cardiolite IV on 03/23/2024 Exercise Protocol: 0.4 mg Lexiscan given IV Heart Rate (bpm): Rest: 60 Max: 81 PMHR: 57 Blood Pressure: Rest: 140/68 Max: 142/78 Symptoms: Rest and peak stress ECG findings were pending and the exercise portion ofthe study was pending per attending physician Dr. RAMIREZ . For more detailsplease see separate cardiac stress test report. FINDINGS: QUALITY OF STUDY: Good. PERFUSION DEFECT: LOCATION: Apical anterior. [place]. SIZE: Small (1-2 segments). SEVERITY: Mild. TYPE: Persistent. WALL MOTION: Normal. LV SIZE: Enlarged; EDV 124 mL. TID / TCD: None; 1.0 LVEF: Normal. Calculated EF 62%. SUMMARY: Myocardial perfusion imaging study has ABNORMAL findings. CONCLUSION: 1. Small fixed defect in the anterior wall, LAD distribution 2. No reversible ischemia 3. Dilated left ventricle, end-diastolic volume 124 milliliters 4. Pending exercise test results Dictated by: Austin Banks MD on 03/23/2024 at 14:55 Approved by: Austin Banks MD on 03/23/2024 at 14:57 Dictated By: Austin Banks M.D. Signed By:03/23/24 1458 DD/ 1457 TD/TT: Bass Viol Repairer: us Generic External Data Provider [facility] Final Result documented in this encounter Visit Diagnoses Not on filedocumented in this encounter Additional Health Concerns Assessment Noted Time PHQ-9 Depression Total Score: 3 12/14/19 24 4:34 PM EDT documented as of this encounter Care Teams Sport Shoe Spike Assembler Relationship Specialty Start Date End Date Mal Perez MD [address] [place] [address] PCP - External PCP Family Medicine 04/24/23 Gilberto Stockton MD [address] [place] [address] PCP - Devoted 08/24/23 08/23/24 Gilberto Stockton MD [address] [place] [address] PCP - General Family Medicine 03/09/24 Gilberto Stockton MD [address] [place] [address] PCP - Medical [facility] 08/24/2408/23 Teressa Sierra NP [address] [place] [address] Nurse Practitioner Family Medicine 09/09/23 documented as of this encounter
--- OUTSIDE RECORDS SUMMARY | 2025-02-22 10:21 | XMS_ITS | Encounter Summary ---
Author Organization [facility] Address [address] [place] [address] Care Team Providers Care Steward/Stewardess Chief Cargo Vessel Name Role Phone House, Mal Bolden MD Unavailable Gilberto Stockton MD Unavailable Teressa Sierra NP Unavailable [phone] Gilberto Stockton MD Primary Care Provider [phone] Gilberto Stockton MD Unavailable Encounter Details Date Type Department Care Team (Late st Contact Info) Description 01/08/2024 Orders Only [facility] [address] [facility] [address] [place] [address] Marianne Hernandez MD [address] [place], [place] [address] Social History Tobacco Use Types Packs/Day Years [...] How often do you attend chur or gnosticism services? Never 12/14/2023 Do you belong to any clubs o r organizations such as adventist groups, unions, fraternal or athletic groups, or [...] Recorded Patient Health Questionnaire-2 Score 1 12/14/2023 [facility] ional Health - Occupational [...] place to sleep or slept in a care home (including now)? No 12/14/2023 Sex and Gender [...] Office Visit [facility] [address] [place] [address] Teressa Sierra NP [address] [place] [address] 08/10/2025 1:00 PM EST Office Visit [facility] [address] [place] [address] Brenna Dangelo PA [address] [place] [address] 12/25/2025 4:30 PM EDT Office Visit [facility] [address] [place] [address] Teressa Sierra, CUAUHTEMOC [address] [place] [address] documented as of this encounter Procedures Procedure Name Priority Date/Time Associated Diagnosis Comments ECHO TRANSTHORACIC W/ DOPPLER Routine 01/05/2024 9:40 AM EDT documented in this encounter Results * ECHO TRANSTHORACIC W/ DOPPLER (01/05/2024 9:40 AM EDT) Anatomical Region Laterality Modality Radiographic Aminta ging us Marianne Hernandez MD IMG XR PROCEDURES Final Result documented in this encounter Visit Diagnoses Not on filedocumented in this encounter Additional Health Concerns Assessment Noted Time PHQ-9 Depression Total Score: 3 12/14/19 24 4:34 PM EDT documented as of this encounter Care Teams Steward/Stewardess Chief Cargo Vessel Relationship Specialty Start Date End Date Mal Perez MD [address] [place] [address] PCP - External PCP Family Medicine 04/24/23 Gilberto Stockton MD [address] [place] [address] PCP - [facility] 08/24/23 08/23/24 Gilberto Stockton MD [address] [place] [address] PCP - General Family Medicine 03/09/24 Gilberto Stockton MD [address] [place] [address] PCP - Medical [facility] 08/24/2408/23 Teressa Sierra, CUAUHTEMOC [address] [place] [address] Nurse Practitioner Family Medicine 09/09/23 documented as of this encounter
--- OUTSIDE RECORDS SUMMARY | 2025-02-22 10:21 | XMS_ITS | Encounter Summary ---
Author Organization [facility] Address [address] [place] [address] Care Team Providers Care Dealer Development Manager Name Role Phone House, Mal Bolden MD Unavailable [phone] Teressa Sierra NP Unavailable [phone] Gilberto Stockton MD Primary Care Provider [phone] Gilberto Stockton MD Unavailable Encounter Details Date Type Department Care Team (Late st Contact Info) Description 01/03/2025 Results Follow-Up [facility] [address] [facility] [address] [place] [address] Brenna Dangelo PA [address] [facility] [address] [place] [address] Social History Tobacco Use Types Packs/Day Years [...] How often do you attend chur or uatsdin services? Never 12/14/2023 Do you belong to [...] [facility] of Occupat ionnh Health - Occupational Stress Questionnaire Answer Date [...] place to sleep or slept in a group home (including now)? No 12/14/2023 Sex and [...] Office Visit [facility] [address] [place] [address] Teressa Sierra NP [address] [place] [address] 08/10/2025 1:00 PM EST Office Visit [facility] [address] [place] [address] Brenna Dangelo PA [address] [place] [address] 12/25/2025 4:30 PM EDT Office Visit [facility] [address] [place] [address] Teressa Sierra, CUAUHTEMOC [address] [place] [address] documented as of this encounter Visit Diagnoses Not on filedocumented in this encounter Additional Health Concerns Assessment Noted Time PHQ-9 Depression Total Score: 2 12/20/19 25 5:02 PM EDT documented as of this encounter Care Teams Dealer Development Manager Relationship Specialty Start Date End Date Mal Perez MD [address] [facility] [place] [address] PCP - External PCP Family Medicine 04/24/23 Gilberto Stockton MD [address] [place] [address] PCP - General Family Medicine 03/09/24 Gilberto Stockton MD [address] [place] [address] PCP - Medical [facility] 08/24/2408/23 Teressa Sierra, CUAUHTEMOC [address] [place] [address] Nurse Practitioner Family Medicine 09/09/23 documented as of this encounter
--- OUTSIDE RECORDS SUMMARY | 2025-02-22 10:21 | XMS_ITS | Encounter Summary ---
Author Organization [facility] Address [address] [place] [address] Care Team Providers Care Orthodontist Small Business Owner Name Role Phone House, Mal Bolden MD Unavailable [phone] Gilberto Stockton MD Unavailable Teressa Sierra NP Unavailable [phone] Gilberto Stockton MD Primary Care Provider [phone] Gilberto Stockton MD Unavailable Encounter Details Date Type Department Care Team (Late st Contact Info) Description 01/07/2024 Clinisync Result Encounter [facility] External Department Unsolicited [...] often do you attend chur ch or yazidi services? Never 12/14/2023 Do you belong to any clubs o r organizations such as sabianism groups, unions, fraternal or athletic groups, or [...] Recorded Patient Health Questionnaire-2 Score 1 12/14/2023 [facility] - Occupational Stress Questionnaire Answer Date Recorded [...] place to sleep or slept in a correction (including now)? No 12/14/2023 Sex and Gender [...] Visit [facility] [address] [place] [address] Teressa Sierra NP [address] [place] [address] 08/10/2025 1:00 PM EST Office Visit [facility] [address] [place] [address] Brenna Dangelo PA [address] [place] [address] 12/25/2025 4:30 PM EDT Office Visit [facility] [address] [place] [address] Teressa Sierra NP [address] [place] [address] documented as of this encounter Procedures Procedure Name Priority Date/Time Associated Diagnosis Comments CA ECHO DOPPLER COMPLETE 01/07/2024 8:32 AM EDT documented in this encounter Results * CA ECHO DOPPLER COMPLETE (01/07/2024 8:32 AM EDT) Anatomical Region Laterality Modality Other 01/07/2024 8:32 AM EDT Narrative 01/07/2024 8:33 [place] [address] Cardiology Report Signed Patient: ARIANNE MCQUEEN MR#: [id number] : 1945 Acct:[id number] Age/Sex: 78 / M ADM Date: 01/05/24 Loc: CARD Attending Dr: ARIELLA GALLEGO APRN Ordering Physician: ARIELLA GALLEGO APRN Date of Service: 01/05/24 Procedure(s): CA echo doppler complete Accession Number(s): [id number] cc: Teressa Sierra LEAD BURNER; ARIELLA GALLEGO APRN Patient Name: ARIANNE MCQUEEN MR#: [id number] : 1945 Exam Date: 01/05/2024 Ordering Doctor: ARIELLA GALLEGO CNP ECHOCARDIOGRAM REPORT PROCEDURE: CA ECHO DOPPLER COMPLETE INDICATIONS: Diastolic heart failure, dyspnea on exertion, CABG, MA, COPD, hypertension, diabetes COMPARISON: None. DESCRIPTION: COMPLETE ECHOCARDIOGRAM Real-time transthoracic echocardiography with 2D, M-mode, spectral and color flow Doppler performed. QUALITY: Technical quality was adequate. 70 , 312#, BSA 2.52 m2, BP 124/76 LEFT VENTRICLE: Normal chamber size. Normal left ventricular wall thickness. Normal systolic function. LV EF: Normal left ventricular ejection fraction, (>55%). DIASTOLIC: Diastolic function is indeterminate. ATRIAL SEPTUM: LEFT ATRIUM: Moderate dilatation. RIGHT ATRIUM: Mild dilatation. RIGHT VENTRICLE: Normal chamber size. Normal right ventricular systolic function. TRICUSPID VALVE: Normal mobility and thickness. No stenosis with no regurgitation. Unable to assess right-sided pressures due to lack of measurable tricuspid regurgitation. MITRAL VALVE: Normal mobility and thickness. No evidence of mitral valve stenosis. There is no mitral annular calcification. No mitral regurgitation. AORTIC VALVE: Normal trileaflet appearance. Thickened aortic valve. Normal leaflet mobility. No evidence of aortic valve stenosis. No aortic regurgitation. AORTIC ROOT: Normal diameter and appearance. Ascending aorta is normal in size. PULMONIC VALVE: Not well visualized. No stenosis. Trivial regurgitation. PERICARDIUM: No evidence of pericardial effusion. IVC: Not well visualized. PLEURA: CONCLUSION: 1. Normal ventricular systolic function. LVEF is 55-60%. 2. Mild to moderate biatrial dilatation. 3. No significant valvular dysfunction. 4. Unable to assess right-sided pressures due to lack of measurable tricuspid regurgitation. Adult Echocardiography Procedure Report Left Ventricle LVEDD (3.7 - 5.6 cm): 5.62 cm LVESD (2.2 - 4.0 cm): 3.62 cm LVIVS thickness (0.6 - 1.2 cm): 0.88 cm LVPW thickness (0.5 - 1.0 cm): 0.85 cm e': 0.06 m/s E - e': 9.19 LVOT Max Gradient: 1.53 mm[Hg] LVOT Area (cm2): 0.62 m/s Peak Velocity (LVOT): 0.62 m/s Mean Velocity (LVOT): 0.43 m/s LVOT Diameter 2.39 cm Left Atrium LA Volume Index (2D A2C): 42.76 ml/m2 Left Atrium Systolic Dimension: 4.72 cm Mitral Valve MV E to A Ratio: 0.69 Mitral Valve A-Wave Peak Velocity: 0.82 m/s Mitral Valve E-Wave Peak Velocity: 0.56 m/s Right Ventricle Aorta AO Root Diam: 3.75 cm Ascending Ao Diam: 2.79 cm Aortic Valve AoV Area (Peak Seng): 3.69 cm2, 3.69 cm2 AoV Area (VTI): 3.93 cm2, 3.93 cm2 Peak Velocity(Antegrade Flow): 0.75 m/s Peak Gradient(Antegrade Flow): 2.25 mm[Hg] Mean Velocity(Antegrade Flow): 0.51 m/s Mean Gradient(Antegrade Flow): 1.19 mm[Hg] Velocity Time Integral: 15.42 cm Tricuspid Valve Pulmonic Valve Mean Gradient: 2.01 mm[Hg] Mean Velocity: 0.66 m/s Peak Velocity: 0.96 m/s, 0.95 m/s Peak Gradient: 3.59 mm[Hg], 3.65 mm[Hg] Right Atrium Right Atrium Systolic Pressure: 53.90 ml, 53.90 ml Dictated by: Catina Hearn M.D. on 01/07/2024 at 08:23 Approved by: Catina Hearn M.D. on 01/07/2024 at 08:32 Dictated By: CATINA HEARN Signed By: 01/07/24832 DD/ 1 TD/TT: Credit Collections Clerk: Procedure Note Radiology, Radiologist, MD - 01/07/2024 [place] [address] Cardiology Report Signed Patient: ARIANNE MCQUEEN AMR#: [id number] : 1945cct:[id number] Age/Sex: 78 / MADM Date: 01/05/24 Loc: CARD Attending Dr: ARIELLA GALLEGO APRN Ordering Physician: ARIELLA GALLEGO APRN Date of Service: 01/05/24 Procedure(s): CA echo doppler complete Accession Number(s): [id number] cc: Teressa Sierra LEAD BURNER; ARIELLA GALLEGO APRN Patient Name: ARIANNE MCQUEEN MR#: [id number] : 1945 Exam Date: 01/05/2024 Ordering Doctor: ARIELLA GALLEGO [facility] ECHOCARDIOGRAM REPORT PROCEDURE: CA ECHO DOPPLER COMPLETE INDICATIONS: Diastolic heart failure, dyspnea on exertion, CABG, MA,COPD, hypertension, diabetes COMPARISON: None. DESCRIPTION: COMPLETE ECHOCARDIOGRAM Real-time transthoracic echocardiography with 2D, M-mode, spectral and color flow Dopplerperformed. QUALITY: Technical quality was adequate. 70 , 312#, BSA 2.52 m2, BP 124/76 LEFT VENTRICLE: Normal chamber size. Normal left ventricular wall thickness. Normal systolic function. LV EF: Normal left ventricular ejection fraction, (>55%). DIASTOLIC: Diastolic function is indeterminate. ATRIAL SEPTUM: LEFT ATRIUM: Moderate dilatation. RIGHT ATRIUM: Mild dilatation. RIGHT VENTRICLE: Normal chamber size. Normal right ventricularsystolic function. TRICUSPID VALVE: Normal mobility and thickness. No stenosis with no regurgitation. Unable to assess right-sided pressures due to lack of measurable tricuspid regurgitation. MITRAL VALVE: Normal mobility and thickness. No evidence of mitralvalve stenosis. There is no mitral annular calcification. No mitralregurgitation. AORTIC VALVE: Normal trileaflet appearance. Thickened aortic valve. Normal leaflet mobility. No evidence of aortic valve stenosis. No aortic regurgitation. AORTIC ROOT: Normal diameter and appearance. Ascending aorta is normalin size. PULMONIC VALVE: Not well visualized. No stenosis. Trivialregurgitation. PERICARDIUM: No evidence of pericardial effusion. IVC: Not well visualized. PLEURA: CONCLUSION: 1. Normal ventricular systolic function. LVEF is 55-60%. 2. Mild to moderate biatrial dilatation. 3. No significant valvular dysfunction. 4. Unable to assess right-sided pressures due to lack of measurabletricuspid regurgitation. Adult Echocardiography Procedure Report Left Ventricle LVEDD (3.7 - 5.6 cm): 5.62 cm LVESD (2.2 - 4.0 cm): 3.62 cm LVIVS thickness (0.6 - 1.2 cm): 0.88 cm LVPW thickness (0.5 - 1.0 cm): 0.85 cm e': 0.06 m/s E - e': 9.19 LVOT Max Gradient: 1.53 mm[Hg] LVOT Area (cm2): 0.62 m/s Peak Velocity (LVOT): 0.62 m/s Mean Velocity (LVOT): 0.43 m/s LVOT Diameter 2.39 cm Left Atrium LA Volume Index (2D A2C): 42.76 ml/m2 Left Atrium Systolic Dimension: 4.72 cm Mitral Valve MV E to A Ratio: 0.69 Mitral Valve A-Wave Peak Velocity: 0.82 m/s Mitral Valve E-Wave Peak Velocity: 0.56 m/s Right Ventricle Aorta AO Root Diam: 3.75 cm Ascending Ao Diam: 2.79 cm Aortic Valve AoV Area (Peak Seng): 3.69 cm2, 3.69 cm2 AoV Area (VTI): 3.93 cm2, 3.93 cm2 Peak Velocity(Antegrade Flow): 0.75 m/s Peak Gradient(Antegrade Flow): 2.25 mm[Hg] Mean Velocity(Antegrade Flow): 0.51 m/s Mean Gradient(Antegrade Flow): 1.19 mm[Hg] Velocity Time Integral: 15.42 cm Tricuspid Valve Pulmonic Valve Mean Gradient: 2.01 mm[Hg] Mean Velocity: 0.66 m/s Peak Velocity: 0.96 m/s, 0.95 m/s Peak Gradient: 3.59 mm[Hg], 3.65 mm[Hg] Right Atrium Right Atrium Systolic Pressure: 53.90 ml, 53.90 ml Dictated by: Catina Hearn M.D. on 01/07/2024 at 08:23 Approved by: Catina Hearn M.D. on 01/07/2024 at 08:32 Dictated By: CATINA HEARN Signed By:01/07/2433 DD/ 1 TD/TT: Credit Collections Clerk: us Generic External Data Provider [facility] Final Result documented in this encounter Visit Diagnoses Not on filedocumented in this encounter Additional Health Concerns Assessment Noted Time PHQ-9 Depression Total Score: 3 12/14/19 24 4:34 PM EDT documented as of this encounter Care Teams Orthodontist Small Business Owner Relationship Specialty Start Date End Date Mal Perez MD [address] [place], [place] [id number] PCP - External PCP Family Medicine 04/24/23 Gilberto Stockton MD [address] [place] [address] PCP - Devoted 08/24/23 08/23/24 Gilberto Stockton MD [address] [place] [address] PCP - General Family Medicine 03/09/24 Gilberto Stockotn MD [address] [place] [address] PCP - Medical [place] 08/24/2408/23 Teressa Sierra NP [address] [place] [address] Nurse Practitioner Family Medicine 09/09/23 documented as of this encounter
--- OUTSIDE RECORDS SUMMARY | 2025-02-22 10:21 | XMS_ITS | Encounter Summary ---
Author Organization [facility] Address [address] [place] [address] Care Team Providers Care Sunday School Missionary Name Role Phone House, Mal Bolden MD Unavailable Gilberto Stockton MD Unavailable Teressa Sierra NP Unavailable [phone] Gilberto Stockton MD Primary Care Provider [phone] Gilberto Stockton MD Unavailable Reason for Visit * Reason Comments Med Refill Encounter Details Date Type Department Care Team (Late st Contact Info) Description 12/24/2023 Refill [facility] [address] [place] [address] Teressa Sierra, CUAUHTEMOC [address] [place] [address] Social History Tobacco Use Types Packs/Day Years [...] often do you attend chur ch or episcopalian services? Never 12/14/2023 Do you belong to any clubs o r organizations such as taoist groups, unions, fraternal or athletic groups, or [...] Recorded Patient Health Questionnaire-2 Score 1 12/14/2023 [facility] of Occupat ional Health - Occupational Stress [...] place to sleep or slept in a longterm (including now)? No 12/14/2023 Sex and Gender [...] Office Visit [facility] [address] [place] [address] Teressa Sierra NP [address] [place] [address] 08/10/2025 1:00 PM EST Office Visit [facility] [address] [place] [address] Brenna Dangelo PA [address] [place] [address] 12/25/2025 4:30 PM EDT Office Visit [facility] [address] [place] [address] Teressa Sierra, CUAUHTEMOC [address] [place] [address] documented as of this encounter Visit Diagnoses Not on filedocumented in this encounter Additional Health Concerns Assessment Noted Time PHQ-9 Depression Total Score: 3 12/14/19 24 4:34 PM EDT documented as of this encounter Care Teams Sunday School Missionary Relationship Specialty Start Date End Date Mal Perez MD [address] [place] [address] PCP - External PCP Family Medicine 04/24/23 Gilberto Stockton MD [address] [place] [address] PCP - Devoted 08/24/23 08/23/24 Gilberto Stockton MD [address] [place] [address] PCP - General Family Medicine 03/09/24 Gilberto Stockton MD [address] [place] [address] PCP - Medical [facility] 08/24/2408/23 Teressa Sierra NP [address] [place] [address] Nurse Practitioner Family Medicine 09/09/23 documented as of this encounter
== END 2025-02-22 10:18 | disposition home or self-care (01) ==
LOC: WC 10:17
PROVIDERS: PCP Nurse Practitioner; Visit Provider Physician Assistant
DX: R60.1 Generalized edema (principal); R60.9 Edema, unspecified; L97.812 Non-pressure chronic ulcer of other part of right lower leg with fat layer exposed; L97.311 Non-pressure chronic ulcer of right ankle limited to breakdown of skin; L97.321 Non-pressure chronic ulcer of left ankle limited to breakdown of skin; I87.313 Chronic venous hypertension (idiopathic) with ulcer of bilateral lower extremity
CPT/HCPCS: G0463

== ENCOUNTER 2025-03-14 10:49 | Outpatient (OUT) | payer MEDICARE, SELFPAY ==
--- OUTSIDE RECORDS SUMMARY | 2024-06-02 03:18 | XMS_ITS ---
Author Organization [facility] [place] Address [address] [place] [address] Care Team Providers Care Clerk Of Scales Name Role Phone Teressa Sierra CNP Primary Care Provider Unavail bryon Mayers Wallace Unavailable [phone] REASON FOR VISIT Trelegy Refill Medications Medication SIG (Take, Route, Frequency, Duration) Notes Start Date End Date Status Trelegy Ellipta 100-62.5-25 MCG/ACT 1 puff Inhalation QD for 90 days Rinse after use Rinse after use 06/22/2023 Active Encounters Encounter Location Date Provider Diagnosis Pulmonary Medicine [place] [address] [place] [address] 06/02/2024 Wallace Mayers COPD (chronic obstructive pulmonary [...] Shan MCQUEEN ADOB:[birth year] (79 yo M)Acc No.[id number]:06/02/2024 Patient: Bessie FRANK Shan Desai :1945 A ge:79 Y S ex:Male Address:[address] [place] [address], [place], [address] * Refills Refill Trelegy Ellipta Aerosol Powder [...] Date: Generated for Viki segundo/Josué/Lisandrasmitting on: 0 03/14/2025 10:53 AM EDT
--- OUTSIDE RECORDS SUMMARY | 2025-02-07 06:30 | XMS_ITS ---
Author Organization [facility] in [place] Address [address] [place] [address] Care Team Providers Care Cardiology Nurse Practitioner Name Role Phone Teressa Sierra CNP Primary Care Provider Unavail able Wallace Mayers Unavailable [phone] Allergies No Known Allergies REASON FOR VISIT [...] Encounter Location Date Provider Diagnosis Pulmonary Medicine [place] [address] [place] [address] 02/07/2025 Wallacecricket Diaz Plan Of Treatment No Information Procedure Notes * Category Sub-Category Detail Notes PFT Data: 04/05/2021 - [facility] -FEV1/FVC: 68%-FEV1: 76%-FVC: 80%-No bronchodilator administered-RV: 151%-T%-DLCO: 58%-Flow-volume loop: Moderate obstruction Alpha-1 Antitrypsin Screening Date: 02/12/2023 Genotype: MM Progress Notes * Shan MCQUEEN ADOB:[birth year] (79 yo M)Acc No.[id number]:02/07/2025 UNLOCKED PROGRESS NOTE Follow Up Patient: Shan TELLEZ Provider: Bobby Mayers DO :1945 A ge:79 Y S ex:Male Date:02/07/2025 Address:[address] [place] [address], [facility] [place], [id number] Pcp:Teressa Sierra, CASH TELLER Subjective: * Chief Complaints: * 1 . 1y COPD. 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 D rugs/Alcohol: D [...] Tablet 1 tablet Orally , Taking Trelegy Ellipta(Cfcwpebaqkd-Njhqcvjbf-Ismdnv) 100-62.5-25 MCG/ACT Aerosol Powder Breath Activated 1 puff Inhalation QD Rinse after use, Notes to Pharmacist: Rinse after use * Allergies: N .K.D.A. Objective: * Vitals: Assessment: Plan: * Treatment: * Procedures: A lpha-1 Antitrypsin: Screening Date: . Genotype: Yenny Bolden FT: Data: 04/05/2021 - [facility] -FEV1/FVC: 68% -FEV1: 76% -FVC: 80% [...] Reason: D rug declined by patient B OK ACTION PLAN Above Normal BMI Follow-up D ietary management education, guidance, and counseling * * Electronic signature of nOeida Mayers DO on 03/14/2025 at 10:53 AM EDT Sign off status: Pending Visit Status: N /S N/C (No Show/No Charge) * Provider: Bobby Mayers DO Date: 0 02/07/2025 Generated for Viki segundo/Josué/Carlos Aitting on: 0 03/14/2025 10:53 AM EDT
--- OUTSIDE RECORDS SUMMARY | 2025-02-07 06:59 | XMS_ITS ---
Author Organization [facility] in [place] Address [address] [place] [address] Care Team Providers Care Hot Strip Mill Inspector Name Role Phone Teressa Sierra CNP Primary Care Provider Wallace Stanton Unavailable [phone] REASON FOR VISIT No Show Appointment Encounters Encounter Location Date Provider Diagnosis Pulmonary Medicine [place] [address] [place] [address] 02/07/2025 Wallace Mayers Plan Of Treatment No Information Progress Notes * Shan MCQUEEN ADOB:[birth year] (79 yo M)Acc No.[id number]:02/07/2025 Patient: Bessie FRANK hSan Desai :1945 A ge:79 Y S ex:Male Address:[address] [place] [address], [place], [address] * true * Date: Generated for Viki segundo/Josué/eTransmitting on: 0 03/14/2025 10:52 AM EDT
--- OUTSIDE RECORDS SUMMARY | 2025-03-14 10:53 | XMS_ITS | Encounter Summary ---
Author Organization [facility] Address [address] [place] [address], [address] [place] [address] Care Team Providers Care Wood Tank Erector Name Role Phone Unavailable Primary Care Provider Unavailabl e Reason for Visit * Reason Comments Medication Refill Encounter Details Date Type Department Care Team (Late st Contact Info) Description 07/19/2021 [facility] Primary Care [address] [facility] [place] [address] [place] [address] [facility] [place] [address] Medication Refill Social History Tobacco [...]
--- OUTSIDE RECORDS SUMMARY | 2025-03-14 10:53 | XMS_ITS | Encounter Summary ---
Author Organization [facility] Address [address] [place] [address] Care Team Providers Care Service Person Name Role Phone House, Mal Bolden MD Unavailable [phone] Gilberto Stockton MD Unavailable Teressa Sierra NP Unavailable [phone] Gilberto Stockton MD Primary Care Provider [phone] Gilberto Stockton MD Unavailable Encounter Details Date Type Department Care Team (Late st Contact Info) Description 01/08/2024 Orders Only [facility] [address] [facility] [address] [place] [address] Marianne Hernandez MD [address] [place], [place] [address] Social History Tobacco Use Types Packs/Day Years [...] How often do you attend chur or restorationism services? Never 12/14/2023 Do you belong to any clubs o r organizations such as anabaptism groups, unions, fraternal [...] Recorded Patient Health Questionnaire-2 Score 1 12/14/2023 [facility] of Occupat ional Health - Occupational Stress [...] place to sleep or slept in a nursing home (including now)? No 12/14/2023 Sex and [...] Visit [facility] [address] [place] [address] Teressa Sierra NP [address] [place] [address] 08/10/2025 1:00 PM EST Office Visit [facility] [address] [place] [address] Brenna Dangelo PA [address] [place] [address] 12/25/2025 4:30 PM EDT Office Visit [facility] [address] [place] [address] Teressa Sierra, CUAUHTEMOC [address] [place] [address] documented as of this encounter Procedures Procedure [...] documented as of this encounter Care Teams Service Person Relationship Specialty Start Date End Date Mal Perez MD PCP - External PCP Family Medicine 04/24/23 Gilberto Stockton MD [address] [place] [address] PCP - Devoted 08/24/23 08/23/24 Gilberto Stockton MD [address] [place] [address] PCP - General Family Medicine 03/09/24 Gilberto Stockton MD [address] [place] [address] PCP - Medical [facility] 08/24/2408/23 Teressa Sierra, CUAUHTEMOC [address] [place] [address] Nurse Practitioner Family Medicine 09/09/23 documented as of this encounter
--- OUTSIDE RECORDS SUMMARY | 2025-03-14 10:53 | XMS_ITS | Encounter Summary ---
Author Organization [facility] Address [address] [facility] [place] [address] Care Team Providers Care Pig Caster Name Role Phone House, Mal Bolden MD Unavailable [phone] Gilberto Stockton MD Unavailable Teressa Sierra NP Unavailable [phone] Gilberto Stockton MD Primary Care Provider [phone] Gilberto Stockton MD Unavailable Encounter Details Date [...] Visit [facility] [address] [place] [address] Teressa Sierra, CUAUHTEMOC [address] [place] [address] 08/10/2025 1:00 PM EST Office Visit [facility] [address] [place] [address] Brenna Dangelo PA [address] [place] [address] 12/25/2025 4:30 PM EDT Office Visit [facility] [address] [place] [address] Teressa Sierra NP [address] [place] [address] documented as of this encounter Procedures Procedure Name Priority Date/Time Associated Diagnosis Comments SEGMENTAL BLOOD PRESSURE 11/04/2023 3:13 PM EDT documented in this encounter Results * SEGMENTAL BLOOD PRESSURE (11/04/2023 3:13 PM EDT) Anatomical Region Laterality Modality Radiographic Aminta ging 11/04/2023 3:13 PM EDT Narrative 11/05/2023 7:02 [place] [address] Cardiology Report Signed Patient: ARIANNE MCQUEEN MR#: [id number] : 1945 Acct:[id number] Age/Sex: 78 / M ADM Date: 11/04/23 Loc: CARD Attending Dr: Wallace Henry D.P.M. Ordering Physician: Wallace Henry D.P.M. Date of Service: 11/04/23 Procedure(s): CA segmental UE or LE ANDI Accession Number(s): [id number] cc: Teressa Sierra JAR FILLER; Wallace Henry D.P.M. [facility] Test Date: 2023-11-04 Pat Name: ARIANNE MCQUEEN Department: Room: - Gender: Male Business Analysis Analyst: Genevieve Torres : 1945 Requested By: 2013 Order Number: [id number] Reading MD: NISHANT OSULLIVAN Interpretive Statements Biphasic [...] 11/05/23 0702 11/05/23 0702 DD/ 1513 TD/TT: Test Developer: Procedure Note Radiology, Radiologist, MD - 11/05/2023 [place] [address] Cardiology Report Signed Patient: ARIANNE MCQUEEN AMR#: [id number] : 1945cct:[id number] Age/Sex: 78 / MADM Date: 11/04/23 Loc: CARD Attending Dr: Wallace Henry D.P.M. Ordering Physician: Wallace Henry D.P.M. Date of Service: 11/04/23 Procedure(s): CA segmental UE or LE ANDI Accession Number(s): [id number] cc: Teressa Sierra JAR FILLER; Wallace Henry D.P.M. [facility] Test Date: 2023-11-04 Pat Name: ARIANNE MCQUEEN Department: Room: - Gender: Male Business Analysis Analyst: Genevieve Torres : 1945 Requested By: 2013 Order Number: [id number] Reading MD: NISHANT OSULLIVAN Interpretive Statements Biphasic [...] By:11/05/23 0702 11/05/23 0702 DD/ 1513 TD/TT: Test Developer: us Generic External Data Provider IMG XR PROCEDURES Final Result documented in this encounter Visit Diagnoses Not on filedocumented in this encounter Care Teams Pig Caster Relationship Specialty Start Date End Date Mal Perez MD PCP - External PCP Family Medicine 04/24/23 Gilberto Stockton MD [address] [place] [address] PCP - Devoted 08/24/23 08/23/24 Gilberto Stockton MD [address] [place] [address] PCP - General Family Medicine 03/09/24 Gilberto Stockton MD [address] [place] [address] PCP - Medical [facility] 08/24/2408/23 Teressa Sierra NP [address] [place] [address] Nurse Practitioner Family Medicine 09/09/23 documented as of this encounter
--- OUTSIDE RECORDS SUMMARY | 2025-03-14 10:53 | XMS_ITS | Patient Health Record ---
Author Organization [facility] [place] Address [address] [place] [address] Care Team Providers Care Die Sinker Apprentice Name Role Phone Teressa Sierra CNP Primary Care Provider Unavail able Wallace Mayers Unavailable [phone] Allergies No Known Allergies Reason For Referral No Information Medications Medication SIG (Take, Route, Frequency, Duration) Notes Start Date End Date Status Trelegy Ellipta 100-62.5-25 MCG/ACT 1 puff Inhalation QD for 90 days Rinse after use Rinse after use 06/22/2023 Active Aspirin 81 81 MG 1 tablet Orally Once a day Active Albuterol Sulfate HFA 108 (90 Base) MCG/ACT 2 puffs as needed for SOB Inhalation Q4H for 90 days Active Isosorbide Mononitrate ER 30 MG 1 tablet in the morning Orally Once a day Active FeroSul 325 (65 Fe) MG TAKE 1 TABLET BY MOUTH EVERY MORNING WITH a meal Oral for 72 Days Active Spironolactone 25 MG 1 tablet Orally Active Ozempic (0.25 or 0.5 MG/DOSE) 2 MG/3ML Subcutaneous for 56 Days Active Atorvastatin Calcium 40 MG 1 tablet [...] Tobacco non-user Ex -moderate cigarette smoker (10-19/day) Problems Problem Type SNOMED Code ICD Code Onset Dates Problem Status W/U Status Risk Notes Problem 277562834 Morbid (severe) obesity due to excess calories (E66.01) Active confirmed Problem Chronic diastolic heart failure (586443115) Chronic diastolic (congestive) heart failure (I50.32) Active confirmed Problem Chronic ulcer of skin of lower leg (disorder) (0160151318751902 4) Non-pressure chronic ulcer of other part of left lower leg 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.821) Active confirmed Problem 608303091 Solitary pulmona ry nodule (R91.1) Active confirmed Problem 352174225 guest relation officer (current) use of inhaled steroids (Z79.51) Active confirmed Problem COPD - Chronic obstructive pulmonary disease (80319373) COPD (chronic obstructive pulmonary disease) (J44.9) Active confirmed Problem Obstructive sleep apnea syndrome (33419281) JOSUE (obstructive sleep apnea) (G47.33) Active confirmed Problem Benign essential hypertension (5777777) Benign essential hypertension (I10) Active confirmed Problem 583011952 History of tobac co abuse (Z87.891) Active confirmed 1ppd x 28 years, quit 2020 Problem Acquired lymphedema (09851198) Acquired lymphedema (I89.0) Active confirmed Problem Stasis dermatitis co-occurrent with venous ulcer of right lower extremity due to chronic peripheral venous hypertension (899319568906749) 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) Active confirmed Problem Atherosclerotic heart disease of [place] coronary artery without angina pectoris (650870906011708) Coronary arteriosclerosis in [place] artery (I25.10) Active confirmed CABG 04/08/2021 : WILKINS > LAD, SVG > Diagonal Problem Stasis edema wit h ulcer of both lower extremities (I87.313) Active confirmed Problem Secondary pulmonary hypertension (77857434) Other secondary pulmonary hypertension (I27.29) Active confirmed RHC 04/03/2021 : RV 48/5, PA 46/11 (28), PCWP 11 Problem Chronic ulcer of calf (4204126142439) Non-pressure chronic ulcer of right calf with other specified severity (L97.218) Active confirmed Problem Skin ulcer of le ft pretibial region with fat layer exposed (L97.822) Active confirmed Problem History of COVID-19 (8434921384128933 05) History of COVID-19 (Z86.16) Active confirmed Problem Pericardial effusion (877526726) Pericardial effusion (I31.39) Active confirmed Encounters Encounter Location Date Provider Diagnosis [facility] [address] [place] [address] 06/02/2024 Wallace Riana COPD (chronic obstructive pulmonary disease) J44.9 [facility] [address] [place] [address] 02/07/2025 Wallacecricket Mayers Assessments Encounter Date Diagnosis (ICD Code) Assessment Notes Treatment Notes Treatment Clinical Notes Section Notes 06/02/2024 COPD (chronic obstructive pulmonary disease) (ICD-10 - J44.9) Plan Of Treatment No Information Insurance Providers Payer Name Payer Address Payer Phone Subscriber Number Group Number Insured Name Patient Relationship to Insured Coverage Start Date Coverage End Date COUNT INCLUDES THE [facility] [address] [place] [phone] [id number] Shan Young Self - patient is the insured 4 4 MMO ADVANTAGE CHOICE MEDICARE HMO [address] [place] [address] [phone] [id number] Shan Young Self - patient is the insured Medical (General) History Medical History History ICD Code Coronary arteriosclerosis in [place] holden ry I25.10 Chronic diastolic (congestive) heart elda lure I50.32 Benign essential hypertension I10 Pericardial effusion I31.39 MGUS (monoclonal gammopathy 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 History of COVID-19 Z86.16 Stage 3 chronic kidney disease, unspecif ied whether stage 3a or 3b CKD N18.30 History of tobacco abuse Z87.891 Hyperlipidemia, unspecified hyperlipidem ia type E78.5 NSVT (nonsustained ventricular tachycard ia) I47.29 Other secondary pulmonary hypertension I 27.29 COPD (chronic obstructive pulmonary dise ase) J44.9 JOSUE (obstructive sleep apnea) G47.33 Surgical History Surgery Date(Month/Year) right knee replacement left knee replacement appendectomy Arthroscopic knee surgery-Left 7 Cholecystectomy 08/06/2010 CABG 04/08/2021 Cardiac Catheterization 04/03/2021 Hospitalization History Reason Date(Month/Year) Sepsis/Pneumonia 08/18/2022
--- OUTSIDE RECORDS SUMMARY | 2025-03-14 10:53 | XMS_ITS | Encounter Summary ---
Author Organization [facility] Address [address] [place], [place] [id number] Care Team Providers Care Disassembler Name Role Phone House Sr., DO Mal Bolden Primary Care Provider + Source Comments In the event this information is protected by the Federal Confidentiality of Alcohol and Drug AbusePatient Records regulations: The Federal rules restrict any use of the information to criminally investigate or prosecute any alcohol or drug abuse patient.[facility] Reason for Referral * Outpatient Procedure (Routine) - Authorized Specialty Diagnoses / Procedures Referred By Colby espinosa Referred To Contact [facility] Diagnoses Chronic obstructive pulmonary disease, unspecified COPD type (HCC) Procedures SPIROMETRY WITH DILATOR IF OBSTRUCTED BRNCDILAT RSPSE SPMTRY PRE&POST-BRNCDILAT ADMN Anya Thompson MD [address] [place] [address] Phone: tel: fax: [facility] [address] [place] [address] Referral ID Status Reason Start Date Expiration Date Visits Requested Visits Authorized [id number] Authorized Auto-Generat ed Referral 03/06/2025 04/05/2026 1 1 * Outpatient Procedure (Routine) - Authorized Specialty Diagnoses / Procedures Referred By Contliam t Referred To Contact [facility] Diagnoses Chronic obstructive pulmonary disease, unspecified COPD type (HCC) Procedures LUNG DIFFUSION CAPACITY (DLCO) DIFFUSING CAPACITY Anya Thompson MD [address] [place] [address] Phone: tel: fax: [facility] [address] [place] [address] Referral ID Status Reason Start Date Expiration Date Visits Requested Visits Authorized [id number] Authorized Auto-Generat ed Referral 03/06/2025 04/05/2026 1 1 Encounter Details Date Type Department Care Team (Late st Contact Info) Description 03/06/2025 Orders Only [facility] [address] [place] [address] Anya Thompson MD [address] [place], [place] [phone] Chronic obstructive pulmonary disease, unspecified COPD type (HCC) (Primary Dx) Social History Tobacco Use Types [...] N ot on file 08/01/2020 Data from: https://www.neighborhoodatlas.medicine.[facility].edu/. Last address used for calculation Not on file 08/01/2020 Sex and Gender Information Value Date Recorded Sex Assigned at Not on file Legal Sex Male 10:16 AM EST Gender Identity Not on file Sexual Orientation Not on file documented as of this encounter Functional Status * Are you deaf or do you have serious difficulty hearing? Answer Date of Assessment Author No 12/04/2014 1:39 PM EDT Eddie Torres * Are you blind or do you have serious difficulty seeing, even when wearing glasses? Answer Date of Assessment Author No 12/04/2014 1:39 PM EDT Eddie Torres * Do you have serious difficulty walking or climbing stairs? Answer Date of Assessment Author No 12/04/2014 1:39 PM EDT Eddie Torres * Do you have difficulty dressing or bathing? Answer Date of Assessment Author No 12/04/2014 1:39 PM EDT Eddie Torres * Because of a physical, mental, or emotional condition, do you have difficulty doing errands alone such as visiting a doctor's office or shopping? Answer Date of Assessment Author No 12/04/2014 1:39 PM EDT Eddie Torres documented as of this encounter Mental Status * Because of a physical, mental, or emotional condition, do you have serious difficulty concentrating, remembering, or making decisions? Answer Entry Date Author No 12/04/2014 1:39 PM EDT Eddie Torres documented in this encounter Plan of Treatment Upcoming Encounters Date Type Department Care Team (Late st Contact Info) Description 06/15/2025 10:15 AM EDT Procedure Pulmonary Lab [address] [place] [address] COPD 06/15/2025 10:45 AM EDT Procedure Pulmonary Lab [address] [place] [address] COPD 06/15/2025 11:00 AM EDT Office Visit Pulmonary Medicine [address] [place] [address] Santhosh Quintana MD [address] [place] [address] COPD 06/15/2025 1:00 PM EDT Office Visit [facility] Ophthalmology [address] [place] [address] Anya Thompson MD [address] [place] [address] Diagnostics[facility] [address] [address] Cataract Eval Scheduled Orders Name Type Priority Associated Diagnoses Orde r Schedule LUNG DIFFUSION CAPACITY (DLCO) PFT Routine Chronic obstructive pulmonary disease, unspecified COPD type (HCC) 1 Occurrences starting 03/06/2025 until 04/05/2026 SPIROMETRY WITH DILATOR IF OBSTRUCTED PFT Routine Chronic obstructive pulmonary disease, unspecified COPD type (HCC) 1 Occurrences starting 03/06/2025 until 04/05/2026 XR CHEST 2V FRONTAL/LAT Radiology Routine Chronic obstructive pulmonary disease, unspecified COPD type (HCC) 1 Occurrences starting 03/06/2025 until 04/05/2026 documented as of this encounter Visit Diagnoses Diagnosis Chronic obstructive pulmonary disease, unspecified COPD type (HCC)- Primary documented in this encounter Care Teams Disassembler Relationship Specialty Start Date End Date Mal Perez Sr., DO PCP - General Family Medicine 04/02/12 documented as of this encounter
--- OUTSIDE RECORDS SUMMARY | 2025-03-14 10:53 | XMS_ITS | Encounter Summary ---
Author Organization [facility] Address [id number] [address] [place] [address] Care Team Providers Care Dialer Name Role Phone Mal Perez DO Primary Care Provider [phone] Encounter Details Date Type Department Care Team (Late st Contact Info) Description 08/29/2021 Orders Only [facility] [address] [place] [phone] Transcribe, Orders Support User Pain (Primary [...] documented as of this encounter Care Teams Dialer Relationship Specialty Start Date End Date Mal Perez DO PCP - General Family Medicine 08/24/21 documented as of this encounter
--- OUTSIDE RECORDS SUMMARY | 2025-03-14 10:53 | XMS_ITS | Encounter Summary ---
Author Organization [facility] Address [address] [place] [address] Care Team Providers Care Route Service Manager Name Role Phone House, Mal Bolden MD Unavailable [phone] Gilberto Stockton MD Unavailable Teressa Sierra NP Unavailable [phone] Gilberto Stockton MD Primary Care Provider [phone] Gilberto Stockton MD Unavailable Reason for Visit * Reason Comments Med Refill Encounter Details Date Type Department Care Team (Late st Contact Info) Description 12/24/2023 [facility] [address] [place] [address] Teressa Sierra, CUAUHTEMOC [address] [place] [address] Social History Tobacco Use Types Packs/Day Years [...] often do you attend chur ch or church services? Never 12/14/2023 Do you belong to any clubs o r organizations such as hinduism groups, unions, fraternal or athletic groups, or [...] Recorded Patient Health Questionnaire-2 Score 1 12/14/2023 [facility] of Occupat ional Health - Occupational Stress [...] place to sleep or slept in a mcc (including now)? No 12/14/2023 Sex and Gender [...] Office Visit [facility] [address] [place] [address] Teressa Sierra NP [address] [place] [address] 08/10/2025 1:00 PM EST Office Visit [facility] [address] [place] [address] Brenna Dangelo PA [address] [place] [address] 12/25/2025 4:30 PM EDT Office Visit [facility] [address] [place] [address] Teressa Sierra, CUAUHTEMOC [address] [place] [address] documented as of this encounter Visit Diagnoses Not on filedocumented in this encounter Additional Health Concerns Assessment Noted Time PHQ-9 Depression Total Score: 3 12/14/19 24 4:34 PM EDT documented as of this encounter Care Teams Route Service Manager Relationship Specialty Start Date End Date Mal Perez MD PCP - External PCP Family Medicine 04/24/23 Gilberto Stockton MD [address] [place] [address] PCP - [facility]oted 08/24/23 08/23/24 Gilberto Stockton MD [address] [place] [address] PCP - General Family Medicine 03/09/24 Gilberto Stockton MD [address] [place] [address] PCP - Medical [facility] 08/24/2408/23 Teressa Sierra, CUAUHTEMOC [address] [place] [address] Nurse Practitioner Family Medicine 09/09/23 documented as of this encounter
--- OUTSIDE RECORDS SUMMARY | 2025-03-14 10:53 | XMS_ITS | Clinical Summary ---
Author Organization [facility] Address [address] [place] [address] Care Team Providers Care Massage Operator Name Role Phone House Sr., Mal LIU Kimi Primary Care Provider + Allergies No known [...] 08/19/2012 Hyperglycemia 08/19/2012 Peripheral vascular disease 08/19/2012 Encounters Date Type Department Care Team Description 03/06/2025 Orders Only [facility] [address] [place] [address] Anya Thompson MD Chronic obstructive pulmonary disease, unspecified COPD type (HCC) (Primary Dx) from Last 3 Months Social History Tobacco Use Types Packs/Day Years [...] on file 08/01/2020 Data from: https://www.neighborhoodatlas.medicine.[facility] [place]/. Last address used for calculation Not on [...] 04/12/2020 1:38 PM EDT Plan of Treatment Upcoming Encounters Date Type Department Care Team (Late st Contact Info) Description 06/15/2025 10:15 AM EDT Procedure Pulmonary Lab [address] [place] [address] COPD 06/15/2025 10:45 AM EDT Procedure Pulmonary Lab [address] [place] [address] COPD 06/15/2025 11:00 AM EDT Office Visit Pulmonary Medicine [address] [place] [address] Santhosh Quintana MD [address] [place] [address] COPD 06/15/2025 1:00 PM EDT Office Visit [facility] Ophthalmology [address] [place] [address] Anya Thompson MD [address] [place] [address] [facility] [address] [address] Cataract Eval Health Maintenance Due Date Last Done Comments [...] 09/02/2021, 09/01/2021, Additional history exists Influenza Vaccine (#1) 2025 Procedures Procedure Name Priority Date/Time Associated Diagnosis Comments COMPREHENSIVE METABOLIC PANEL Routine 04/04/2020 1:36 PM EDT MGUS (monoclonal gammopathy of unknown significance) from Last 3 Months or Most Recently Relevant to Health Maintenance Results * (ABNORMAL) COMP METABOLIC PANEL (04/04/2020 1:36 PM EDT) Protein, Total 8.7(H) 6.3 - 8.0 g/dL 04/04/2020 2:27 PM EDT [facility] Albumin 4.3 3.9 - 4.9 g/dL 04/04/2020 2:27 PM EDT [facility] Calcium 9.2 8.5 - 10.2 mg/dL 04/04/2020 2:27 PM EDT [facility] Bilirubin, Total 1.2 0.2 - 1.3 mg/dL 04/04/2020 2:27 PM EDT [facility] Alkaline Phosphatase 90 38 - 113 U/L 04/04/2020 2:27 PM EDT [facility] AST 15 14 - 40 U/L 04/04/2020 2:27 PM EDT [facility] Glucose 129(H) 74 - 99 mg/dL 04/04/2020 2:27 PM EDT [facility] Comment: The [place] Diabetes Association (ADA) provides guidance for cutoff [...] Standards of Medical Care in Diabetes 2016, [place] Diabetes Association. Diabetes Care. 2016.39(Suppl 1). BUN 15 9 - 24 mg/dL 04/04/2020 2:27 PM EDT [facility] Creatinine 0.76 0.73 - 1.22 mg/dL 04/04/2020 2:27 PM EDT [facility] Sodium 133(L) 136 - 144 mmol/L 04/04/2020 2:27 PM EDT [facility] Potassium 3.7 3.7 - 5.1 mmol/L 04/04/2020 2:27 PM EDT [facility] Chloride 96(L) 97 - 105 mmol/L 04/04/2020 2:27 PM EDT [facility] CO2 29 22 - 30 mmol/L 04/04/2020 2:27 PM EDT [facility] Anion Gap 8(L) 9 - 18 mmol/L 04/04/2020 2:27 PM EDT [facility] ALT 16 10 - 54 U/L 04/04/2020 2:27 PM EDT [facility] eGFR- >60 04/04/2020 2:27 PM EDT [facility] eGFR-All Other Races >60 . 04/04/2020 2:27 PM T [facility] Comment: eGFR (Estimated GFR) Units of measure: [...] 1:36 PM EDT 04/04/2020 1:52 PM EDT us Willie Sotelo MD LABORATORY Final Result [facility] [address] [place] [address] [facility] [address] [place], [place] from Last 3 Months or Most Recently Relevant to Health Maintenance Insurance MMO [employer] O Care Teams Massage Operator Relationship Specialty Start Date End Date Mal Perez Sr., DO PCP - General Family Medicine 04/02/12
--- OUTSIDE RECORDS SUMMARY | 2025-03-14 10:53 | XMS_ITS | Encounter Summary ---
Author Organization [facility] Address [address] [place] [address] Care Team Providers Care Mechanic Insulator Name Role Phone House, Mal Bolden MD Unavailable [phone] Gilberto Stockton MD Unavailable Teressa Sierra NP Unavailable [phone] Gilberto Stockton MD Primary Care Provider [phone] Gilberto Stockton MD Unavailable Encounter Details Date [...] How often do you attend chur or temple services? Never 12/14/2023 Do you belong to any clubs o r organizations such as advent groups, unions, fraternal or athletic groups, or [...] Recorded Patient Health Questionnaire-2 Score 1 12/14/2023 [facility] - Occupational Stress Questionnaire Answer Date [...] place to sleep or slept in a usp (including now)? No 12/14/2023 Sex and Gender [...] Visit [facility] [address] [place] [phone] Teressa Sierra NP [address] [place] [address] 08/10/2025 1:00 PM EST Office Visit [facility] [address] [place] [address] Brenna Dangelo PA [address] [place] [address] 12/25/2025 4:30 PM EDT Office Visit [facility] [address] [place] [phone] Teressa Sierra NP [address] [place] [address] documented as of this encounter Procedures Procedure Name Priority Date/Time Associated Diagnosis Comments CA ECHO DOPPLER COMPLETE 01/07/2024 8:32 AM EDT documented in this encounter Results * CA ECHO DOPPLER COMPLETE (01/07/2024 8:32 AM EDT) Anatomical Region Laterality Modality Other 01/07/2024 8:32 AM EDT Narrative 01/07/2024 8:33 [place] [address] Cardiology Report Signed Patient: ARIANNE MCQUEEN MR#: [id number] : 1945 Acct:[id number] Age/Sex: 78 / M ADM Date: 01/05/24 Loc: CARD Attending Dr: ARIELLA GALLEGO APRN Ordering Physician: ARIELLA GALLEGO APRN Date of Service: 01/05/24 Procedure(s): CA echo doppler complete Accession Number(s): [id number] cc: Teressa Sierra SWEATBAND DRUMMER; ARIELLA GALLEGO APRN Patient Name: ARIANNE MCQUEEN MR#: [id number] : 1945 Exam Date: 01/05/2024 Ordering Doctor: ARIELLA GALLEGO SUPPLY ANALYST ECHOCARDIOGRAM REPORT PROCEDURE: CA ECHO DOPPLER COMPLETE INDICATIONS: Diastolic heart failure, dyspnea on exertion, CABG, [place], COPD, hypertension, diabetes COMPARISON: None. DESCRIPTION: COMPLETE [...] 08:32 Dictated By: CATINA HEARN Signed By: 01/07/2433 DD/ 1 TD/TT: Director Behavioral Health: Procedure Note Radiology, Radiologist, MD - 01/07/2024 [place] [address] Cardiology Report Signed Patient: ARIANNE MCQUEEN AMR#: [id number] : 1945cct:[id number] Age/Sex: 78 / MADM Date: 01/05/24 Loc: CARD Attending Dr: ARIELLA GALLEGO APRN Ordering Physician: ARIELLA GALLEGO APRN Date of Service: 01/05/24 Procedure(s): CA echo doppler complete Accession Number(s): [id number] cc: Teressa Sierra SWEATBAND DRUMMER; ARIELLA GALLEGO APRN Patient Name: ARIANNE MCQUEEN MR#: [id number] : 1945 Exam Date: 01/05/2024 Ordering Doctor: ARIELLA GALLEGO [facility] ECHOCARDIOGRAM REPORT PROCEDURE: CA ECHO DOPPLER COMPLETE INDICATIONS: Diastolic heart failure, dyspnea on exertion, CABG, [place],COPD, hypertension, diabetes COMPARISON: None. DESCRIPTION: COMPLETE ECHOCARDIOGRAM [...] at 08:32 Dictated By: CATINA HEARN Signed By:01/07/24832 DD/ 1 TD/TT: Director Behavioral Health: us Generic External Data Provider [facility] Final Result documented in this encounter Visit Diagnoses Not on filedocumented in this encounter Additional Health Concerns Assessment Noted Time PHQ-9 Depression Total Score: 3 12/14/19 24 4:34 PM EDT documented as of this encounter Care Teams Mechanic Insulator Relationship Specialty Start Date End Date Mal Perez MD PCP - External PCP Family Medicine 04/24/23 Gilberto Stockton MD [address] [place] [address] PCP - Devoted 08/24/23 08/23/24 Gilberto Stockton MD [address] [place] [address] PCP - General Family Medicine 03/09/24 Gilberto Stockton MD [address] [place] [address] PCP - Medical [facility] 08/24/2408/23 Teressa Sierra NP [address] [facility] [place] [address] Nurse Practitioner Family Medicine 09/09/23 documented as of this encounter
--- OUTSIDE RECORDS SUMMARY | 2025-03-14 10:53 | XMS_ITS | Encounter Summary ---
Author Organization [facility] Address [address] [place] [address] Care Team Providers Care Transplant Worker Name Role Phone House, Mal Bolden MD Unavailable [phone] Gilberto Stockton MD Unavailable Teressa Sierra NP Unavailable [phone] Gilberto Stockton MD Primary Care Provider [phone] Gilberto Stockton MD Unavailable Encounter Details Date [...] How often do you attend chur or shinto services? Never 12/14/2023 Do you belong to any clubs o r organizations such as jew groups, unions, fraternal or athletic groups, or [...] Recorded Patient Health Questionnaire-2 Score 1 12/14/2023 [facility] [...] Visit [facility] [address] [place] [address] Teressa Sierra NP [address] [place] [address] 08/10/2025 1:00 PM EST Office Visit [facility] [address] [place] [address] Brenna Dangelo PA [address] [place] [address] 12/25/2025 4:30 PM EDT Office Visit [facility] [address] [place] [address] Teressa Sierra NP [address] [place] [address] documented as of this encounter Procedures Procedure Name Priority Date/Time Associated Diagnosis Comments NM LUIGI PERF SPECT REST STR 03/23/2024 2:57 PM EDT documented in this encounter Results * NM LUIGI PERF SPECT REST STR (03/23/2024 2:57 PM EDT) Anatomical Region Laterality Modality Other 03/23/2024 2:57 PM EDT Narrative 03/23/2024 2:58 [place] [address] Nuclear Medicine Report Signed Patient: ARIANNE MCQUEEN MR#: [id number] : 1945 Acct:[id number] Age/Sex: 78 / M ADM Date: 03/17/24 Loc: ID Attending Dr: ARIELLA GALLEGO APRN Ordering Physician: ARIELLA GALLEGO APRN Date of Service: 03/17/24 Procedure(s): NM luigi perf SPECT rest str Accession Number(s): [id number] cc: Teressa Sierra TABLET COATER; ARIELLA GALLEGO APRN Patient Name: ARIANNE MCQUEEN MR#: [id number] : 1945 Exam Date: 03/17/2024 Ordering Doctor: ARIELLA GALLEGO [employer]ACE [employer] OPERATIONS SUPERINTENDENT RADIOLOGY REPORT PROCEDURE: NM LUIGI PERF SPECT [...] STUDY: Good. PERFUSION DEFECT: LOCATION: Apical anterior. [place]. SIZE: Small (1-2 segments). SEVERITY: Mild. TYPE: [...] Banks M.D. Signed By: 03/23/24 1458 DD/ 145 TD/TT: Intellectual Property Counsel: Procedure Note Radiology, Radiologist, - 03/23/2024 [place] [address] Nuclear Medicine Report Signed Patient: ARIANNE MCQUEEN AMR#: [id number] : 1945cct:[id number] Age/Sex: 78 / MADM Date: 03/17/24 Loc: NOHEMI Attending Dr: ARIELLA GALLEGO APRN Ordering Physician: ARIELLA GALLEGO APRN Date of Service: 03/17/24 Procedure(s): NM luigi perf SPECT rest str Accession Number(s): [id number] cc: Teressa Sierra TABLET COATER; ARIELLA GALLEGO APRN Patient Name: ARIANNE MCQUEEN MR#: [id number] : 1945 Exam Date: 03/17/2024 Ordering Doctor: [...] STUDY: Good. PERFUSION DEFECT: LOCATION: Apical anterior. [place]. SIZE: Small (1-2 segments). SEVERITY: Mild. TYPE: [...] M.D. Signed By:03/23/24 1458 DD/ 1457 TD/TT: Intellectual Property Counsel: Generic External Data Provider [facility] Final Result documented in this encounter Visit Diagnoses Not on filedocumented in this encounter Additional Health Concerns Assessment Noted Time PHQ-9 Depression Total Score: 3 12/14/19 24 4:34 PM EDT documented as of this encounter Care Teams Transplant Worker Relationship Specialty Start Date End Date Mal Perez MD PCP - External PCP Family Medicine 04/24/23 Gilberto Stockton MD [address] [place] [address] PCP - Devoted 08/24/23 08/23/24 Gilberto Stockton MD [address] [place] [address] PCP - General Family Medicine 03/09/24 Gilberto Stockton MD [address] [place] [address] PCP - Medical [place] 08/24/2408/23 Teressa Sierra NP [address] [place] [address] Nurse Practitioner Family Medicine 09/09/23 documented as of this encounter
--- OUTSIDE RECORDS SUMMARY | 2025-03-14 10:53 | XMS_ITS | Encounter Summary ---
Author Organization [facility] Address [address] [place] [facility] [place] [address] Care Team Providers Care Crop Supervisor Name Role Phone House, Mal Bolden MD Unavailable [phone] Gilberto Stockton MD Unavailable Teressa Sierra NP Unavailable [phone] Gilberto Stockton MD Primary Care Provider [phone] Gilberto Stockton MD Unavailable Encounter Details Date Type Department Care Team (Late st Contact Info) Description 09/07/2023 Abstract [facility] [address] [place] [address] Teressa Sierra, CLINICAL RESEARCH MANAGER [address] [place] [address] Social History Tobacco Use Types Packs/Day Years [...] [facility] [address] [place] [address] Teressa Sierra, CUAUHTEMOC [address] [place] [address] 08/10/2025 1:00 PM EST Office Visit [facility] [address] [place] [address] Brenna Dangelo PA [address] [place] [address] 12/25/2025 4:30 PM EDT Office Visit [facility] [address] [place] [address] Teressa Sierra, CLINICAL RESEARCH MANAGER [address] [place] [address] documented as of this encounter Visit Diagnoses Not on filedocumented in this encounter Care Teams Crop Supervisor Relationship Specialty Start Date End Date Mal Perez MD PCP - External PCP Family Medicine 04/24/23 Gilberto Stockton MD [address] [place] [address] PCP - Devoted 08/24/23 08/23/24 Gilberto Stockton MD [address] [place] [address] PCP - General Family Medicine 03/09/24 Gilberto Stockton MD [address] [place] [address] PCP - Medical [facility] 08/24/2408/23 Teressa Sierra NP [address] [place] [address] Nurse Practitioner Family Medicine 09/09/23 documented as of this encounter
--- OUTSIDE RECORDS SUMMARY | 2025-03-14 10:53 | XMS_ITS | Clinical Summary ---
Author Organization [facility] Address [address] [place] [address] Care Team Providers Care Rn Correctional Name Role Phone Teressa Sierra MD Primary Care Provider [phone] Allergies No known active allergies Medications ferrous [...] 24 hr tabletIndication s:Coronary artery disease involving [place] coronary artery of [place] heart with other form of angina pectoris Take 1 tablet (30 mg) by mouth once daily as directed. Do not crush or chew. 90 tablet 3 4 06/17/20 Active furosemide (Lasix) 40 mg tabletIndication s:Chronic diastolic heart failure (CMS/HCC),Edema of lower extremity Take 1 tablet (40 mg) by mouth in the morning. 90 tablet 3 5 10/03/19 26 Active Additional Information Patient taking differently:40 mg oral2 times daily, Reported on 01/23/2025 glipiZIDE (Glucotrol) 5 mg tablet Take 5 mg by mouth before breakfast and before evening meal. 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 02/21 Hyperpigmentation 12/17/2023 12/17/2023 Lymphedema 12/17/2023 12/17/2023 Lymphorrhea 12/17/2023 12/17/2023 Wound cellulitis 12/17/2023 12/17/2023 Arthritis of right hip 12/14/2023 Encounter for subsequent [facility] wellness visit (AWV) in Medicare patient [...] (12/17/2023): Last Assessment & Plan: Follow with [facility] Sleep Lab Dr Amado, no machine [...] 08/29/2021 Multiple vessel coronary artery disease 07/03/20 Cough 07/03/2021 Edema 07/03/2021 Hypertensive disorder 07/03/2021 History of coronary artery bypass surgery 2020 Nonsustained ventricular tachycardia 07/03/2021 Wound of sternal region 07/03/2021 Syncope and collapse 03/20/2021 Hyperglycemia 08/19/2012 Metabolic syndrome 08/19/2012 MGUS (monoclonal gammopathy of unknown significa nce) 08/19/2012 Encounters Date Type Department Care Team Description 02/28/[address] [address] Katty Peters MA 01/23/2025 1:30 PM EDT Office Visit [address] [address] Hunter Hearn MD Chronic diastolic heart failure (CMS/HCC) (Primary Dx); Primary hypertension; History of coronary artery bypass surgery; Coronary artery disease involving [place] coronary artery of [place] heart without angina pectoris; Pericardial effusion; Stage 3b chronic kidney disease (CMS/HCC) 01/12/2025 Orders Only [address] [address] Radha Watts MD 12/30/[address] [address] Katty Peters MA 12/30/2024 Orders Only [address] [address] Katty Peters MA Acute combined systolic and diastolic heart [...] Recently Relevant to Health Maintenance Insurance [employer] [place] MEDICARE Care Teams Rn Correctional Relationship Specialty Start Date End Date Teressa Sierra MD [address] [place] [address] PCP - General Nurse Practitioner 12/17/23
--- OUTSIDE RECORDS SUMMARY | 2025-03-14 10:53 | XMS_ITS | Encounter Summary ---
Author Organization [facility] Address [address] [facility] [place] [address] Care Team Providers Care Lock Setter Name Role Phone House, Mal Bolden MD Unavailable Gilberto Stockton MD Unavailable Teressa Sierra DUST BRUSH ASSEMBLER Unavailable [phone] Gilberto Stockton MD Primary Care Provider [phone] Gilberto Stockton MD Unavailable Encounter Details Date Type Department Care Team (Late st Contact Info) Description 11/05/2023 Orders Only [facility] [address] [place] [address] Teressa Sierra, DUST BRUSH ASSEMBLER [address] [place] [address] Social History Tobacco Use Types Packs/Day Years [...] 03/21/2025 3:00 PM EDT Office Visit [facility] [address] [place] [address] Teressa Sierra NP [address] [place] [address] 08/10/2025 1:00 PM EST Office Visit [facility] [address] [place] [address] Brenan Dangelo PA [address] [place] [address] 12/25/2025 4:30 PM EDT Office Visit [facility] [address] [place] [address] Teressa Sierra NP [address] [place] [address] documented as of this encounter Procedures Procedure [...] on filedocumented in this encounter Care Teams Lock Setter Relationship Specialty Start Date End Date Mal Perez MD PCP - External PCP Family Medicine 04/24/23 Gilberto Stockton MD [address] [place] [address] PCP - Devoted 08/24/23 08/23/24 Gilberto Stockton MD [address] [place] [address] PCP - General Family Medicine 03/09/24 Gilberto Stockton MD [address] [place] [address] PCP - Medical [facility] 08/24/2408/23 Teressa Sierra NP [address] [place] [address] Nurse Practitioner Family Medicine 09/09/23 documented as of this encounter
--- OUTSIDE RECORDS SUMMARY | 2025-03-14 10:53 | XMS_ITS | Clinical Summary ---
Author Organization [facility] Address [address] [place] [address] Care Team Providers Care Fast Brim Pouncer Name Role Phone House, Mal Bolden MD Unavailable [phone] Teressa Sierra NP Unavailable [phone] Gilberto Stockton MD Primary Care Provider [phone] Gilberto Stockton MD Unavailable Allergies No known [...] w/Device kit Active Lancets 33G misc Act laba albuterol HFA 90 mcg/act inhaler Inhale 2 [...] atorvastatin (Lipitor) 40 MG tabletIndications: Atherosclerosis of [place] coronary artery of [place] heart without angina pectoris,Mixed hyperlipidemia,Cor onary artery disease involving [place] coronary artery of [place] heart without angina pectoris Take 1 tablet [...] 12.5 MG tabletIndications: Atherosclerotic heart disease of [place] coronary artery without angina pectoris Take 1 [...] Plan (09/27/2024 4:23 PM EST): He has [facility] Nurse comes out few times per week for dressing changes Also sees Giselle Drew at [facility] for mgmt of wound Type 2 diabetes [...] Venous stasis of both lower extremities 12/14/19 Assessment & Plan (03/14/2024 7:15 PM EDT): Stable at this time Encounter for subsequent [facility] wellness visit (AWV) in Medicare patient [...] in a year I did contact the [facility] Sleep lab ext [phone] to find out about scheduling the patient to see about an updated PAP machine: voicemail left at 16:20 on 09/27/24 Assessment & Plan (06/01/2024 4:58 PM EDT): Non compliant with PAP use, machine is broke , difficulty finding DME who takes his insurance I did leave a VM on Sleep lab [facility] regarding this for them to assist Assessment & Plan (12/14/2023 5:30 PM EDT): Follow with [facility] Sleep Lab Dr Amado, no machine [...] Plan (09/09/2023 4:09 PM EST): Continue with [facility] Vein and Body Myocardial infarction 09/08/2023 CAD [...] MELLITUS WITH DIABETIC CHRONIC KIDNEY DISEASE (HCC) ([facility]/HCC) WRITTEN ON 03/14/2024 7:17 PM BY TERESSA [...] Plan (09/27/2024 7:12 AM EST): Follows with [facility] Current meds: asa, statin, b fitz, imdur, aldactone, amlodipine Assessment & Plan (12/14/2023 5:32 PM EDT): Continue with cardiology Not able to afford the jardiance script Pericardial effusion ([facility]-HCC) 08/29/2021 Atherosclerosis of [place] co ronary artery of [place] heart without angina pectoris 08/29/2021 Assessment & Plan (09/27/2024 7:11 AM EST): Current meds: asa, statin, b fitz, imdur, aldactone, Cardiology: [facility] Pat Cough 07/03/2021 Other ventricular tachycardia 07/03/2021 Assessment [...] Venous stasis ulcer of right lower extremity 09/27/2024 Hypercholesterolemia 09/08/2023 024 Edema 07/03/2021 06/01/2024 History of coronary artery bypass surgery 07/03/2021 09/27/2024 Encounters Date Type Department Care Team Description 02/21/2025 Clinisync Result Encounter [facility] External Department Unsolicited Provider, Generic External Data 02/21/2025 Clinisync Result Encounter [facility] External Department Unsolicited Provider, Generic External Data 02/13/2025 Results Follow-Up [facility] [address] [place] [address] Yadi Malik MD 02/08/2025 1:00 PM EDT Office Visit [facility] [address] [place] [address] Yadi Malik MD Neoplasm of unspecified behavior of bone, soft tissue, and skin (Primary Dx) 02/08/2025 Bamboo flowsheet [facility] [address] [place] [address] Yadi Malik MD 02/08/2025 Travel 02/07/2025 Telephone [facility] [address] [place] [address] Teressa Sierra NP 01/12/2025 Clinisync Result Encounter [facility] External Department Unsolicited Provider, Generic External Data 01/06/2025 Telephone [facility] [address] [place] [address] Génesis Donaldson LPN Results 01/03/2025 Results Follow-Up [facility] [address] [place] [address] Brenna Dangelo PA 12/30/2024 Clinisync Result Encounter [facility] External Department Unsolicited Provider, Generic External Data 12/28/2024 10:30 AM EDT Office Visit [facility] [address] [place] [address] Brenna Dangelo PA Epidermal inclusion cyst (Primary Dx); Neoplasm of unspecified behavior of bone, soft tissue, and skin 12/28/2024 Bamboo flowsheet [facility] [address] [place] [address] Brenna Dangelo PA 12/28/2024 Travel 12/19/2024 4:30 PM EDT Office Visit [facility] [address] [place] [address] Teressa Sierra NP Encounter for subsequent annual wellness visit (AWV) in Medicare patient (Primary Dx); Chronic obstructive pulmonary disease, unspecified COPD type (HCC); Coronary artery disease involving [place] coronary artery of [place] heart without angina pectoris ; Essential hypertension; Type 2 diabetes mellitus with stage 3 chronic kidney disease, without long-term current use of insulin, unspecified whether stage 3a or 3b CKD (HCC); Neoplasm of uncertain behavior; Body mass index (BMI) 45.0-49.9, adult ([facility]); Morbid (severe) obesity due to excess calories ([facility]) 12/19/2024 [facility]ill [facility] [address] [place] [address] Teressa Sierra NP Bilateral primary osteoarthritis of knee; Atherosclerotic heart disease of [place] coronary artery without angina pectoris from Last 3 Months Family History Medical [...] any clubs o r organizations such as quaker groups, unions, fraternal or athletic groups, or [...] Recorded Patient Health Questionnaire-2 Score 0 12/19/2024 [facility] - Occupational Stress Questionnaire Answer Date Recorded [...] place to sleep or slept in a long term (including now)? No 12/14/2023 Sex and Gender [...] Office Visit [facility] [address] [place] [address] Teressa Sierra, CUAUHTEMOC [address] [place] [address] 08/10/2025 1:00 PM EST Office Visit [facility] [address] [place] [address] Brenna Dangelo PA [address] [place] [address] 12/25/2025 4:30 PM EDT [facility] Visit [facility] [address] [place] [address] Teressa Sierra, CUAUHTEMOC [address] [place] [address] Health Maintenance Due Date Last Done Comments [...] EDT Narrative 02/21/2025 2:41 [place] [address] Cardiology Report Signed Patient: ARIANNE MCQUEEN MR#: [id number] : 1945 Acct:[id number] Age/Sex: 79 / M ADM Date: 02/21/25 Loc: CARD Attending Dr: CATINA SALAZAR Ordering Physician: CATINA SALAZAR Date of Service: 02/21/25 Procedure(s): CA echo doppler complete Accession Number(s): [id number] cc: Teressa Sierra NP; CATINA SALAZAR Patient Name: ARIANNE MCQUEEN MR#: [id number] : 1945 Exam Date: 02/21/2025 Ordering Doctor: DR CATINA SALAZAR M.D. ECHOCARDIOGRAM REPORT PROCEDURE: CA ECHO DOPPLER COMPLETE INDICATIONS: Chronic diastolic heart failure, h/o pericardial effusion, CABG, SD, COPD, hypertension, diabetes COMPARISON: None. DESCRIPTION: COMPLETE [...] Area (VTI): 4.57 cm2, 4.57 cm2 Deceleration [place]: Pressure Half-Time: Peak Velocity(Antegrade Flow): 0.89 m/s [...] By: Ann Walls M.D. Signed By: 02/21/25 1441 DD/ 1440 TD/TT: Biometrics Instructor: Procedure Note Radiology, Radiologist, MD - 02/21/2025 [place] [address] Cardiology Report Signed Patient: ARIANNE MCQUEEN AMR#: [id number] : 1945cct:[id number] Age/Sex: 79 / MADM Date: 02/21/25 Loc: CARD Attending Dr: CATINA SALAZAR Ordering Physician: CATINA SALAZAR Date of Service: 02/21/25 Procedure(s): CA echo doppler complete Accession Number(s): [id number] cc: Teressa Sierra NP; CATINA SALAAZR Patient Name: ARIANNE MCQUEEN MR#: [id number] : 1945 Exam Date: 02/21/2025 Ordering Doctor: DR CATINA SALAZAR M.D. ECHOCARDIOGRAM REPORT PROCEDURE: CA ECHO DOPPLER COMPLETE INDICATIONS: Chronic diastolic heart failure, h/o pericardialeffusion, CABG, SD, COPD, hypertension, diabetes COMPARISON: None. DESCRIPTION: COMPLETE [...] Area (VTI): 4.57 cm2, 4.57 cm2 Deceleration [place]: Pressure Half-Time: Peak Velocity(Antegrade Flow): 0.89 m/s [...] M.D. Signed By:02/21/25 1441 DD/ 1440 TD/TT: Biometrics Instructor: Generic External Data Provider [facility] Final Result * (ABNORMAL) ALL BASIC [...] 0.70 - 1.30 mg/dL TBH TBH EGFR-AF [place] 47(L) >=60 mL/min/1.7 3m 2 TBH TBH EGFR-NON AF [place]QI 39(L) >=60 mL/min/1.7 3m 2 TBH BUN CREATININE RATIO 22.9 TBH CALCIUM 8.9 8.5 - 10.1 mg/dL [facility] 02/21/2025 12:2 6 PM EDT 02/21/2025 12:33 PM EDT Narrative EVA - 02/21/2025 1:31 PM EDT Generic External Data Provider EVA jane Result EVA [facility] * Skin repair (02/08/2025 1:04 PM EDT) [...] bleeding, or complications. Dressing type: pressure dressing Yadi Malik MD DERM PROCEDURE ORDERABLES Fin [...] us Yadi Malik MD DERM PROCEDURE ORDERABLES [facility] al Result * Dermatopathology exam (02/08/2025 12:00 [...] 1) (4 in 2) (3 in 3) (jsusana/kb) (02/10/25) [facility] Microscopic Description Microscopic examination performed. 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 Margins: Yes Previous accession number: [id number] Yadi Malik MD LAB PATHOLOGY ORDERABLES Eboni l Result [facility] * ALL PRO BNP (12/30/2024 4:55 PM EDT) NT PRO B TYPE NATRIURETIC PEPT 464.0 <=1,800.0 pg/mL TB 12/30/2024 4:55 PM EDT 12/30/2024 4:56 PM EDT Narrative [facility] - 12/30/2024 6:05 PM EDT Generic External Data Provider CLINCESILIA jane Result [facility] * Lesion biopsy (12/28/2024 10:52 AM EDT) [...] cc Brenna FISH DERM PROCEDURE ORDERABLES Eboni l Result * (ABNORMAL) POCT glycosylated hemoglobin (Hb A1C) docked device (12/19/2024 5:29 PM EDT) Hemoglobin A1C 5.9 Blood Venous blood specimen / Unknown 12/19/2024 5:29 PM EDT Teressa Sierra NP POINT OF CARE TEST ENTER/EDIT O RDERABLES Final Result from Last 3 Months Insurance [employer] MEDICARE Care Teams Fast Brim Pouncer Relationship Specialty Start Date End Date Mal Perez MD PCP - External PCP Family Medicine 04/24/23 Gilberto Stockton MD [address] [place] [address] PCP - General Family Medicine 03/09/24 Gilberto Stockton MD [address] [place] [address] PCP - Medical [facility] 08/24/2408/23 Teressa Sierra NP [address] [place] [address] Nurse Practitioner Family Medicine 09/09/23
--- OUTSIDE RECORDS SUMMARY | 2025-03-14 10:54 | XMS_ITS | Encounter Summary ---
Author Organization [facility] Address [address] [place] [address] Care Team Providers Care Recruitment Assistant Name Role Phone House, Mal Bolden MD Unavailable [phone] Gilberto Stockton MD Unavailable Teressa Sierra MATRIX REPAIRER Unavailable [phone] Gilberto Stockton MD Primary Care Provider [phone] Gilberto Stoctkon MD Unavailable Encounter Details Date Type Department Care Team (Late st Contact Info) Description 02/19/[address] [facility] [address] [phone] London Alcantara MD [address] [facility] [address] [place] [address] Social History Tobacco Use Types [...] Visit [facility] [address] [place] [address] Teressa Sierra NP [address] [place] [address] 08/10/2025 1:00 PM EST Office Visit [facility] [address] [place] [address] Brenna Dangelo PA [address] [place] [address] 12/25/2025 4:30 PM EDT Office Visit [facility] [address] [place] [address] Teressa Sierra, CUAUHTEMOC [address] [place] [address] documented as of this encounter Visit Diagnoses Not on filedocumented in this encounter Care Teams Recruitment Assistant Relationship Specialty Start Date End Date Mal Perez MD PCP - External PCP Family Medicine 04/24/23 Gilberto Stockton MD [address] [place] [address] PCP - Devoted 08/24/23 08/23/24 Gilberto Stockton MD [address] [place] [address] PCP - General Family Medicine 03/09/24 Gilberto Stockton MD [address] [place] [address] PCP - Medical [facility] 08/24/2408/23 Teressa Sierra NP [address] [place] [address] Nurse Practitioner Family Medicine 09/09/23 documented as of this encounter
--- OUTSIDE RECORDS SUMMARY | 2025-03-14 10:54 | XMS_ITS | Clinical Summary ---
Author Organization [facility] Address [address] [place] [address], [address] [place] [address] Care Team Providers Care Stock Handler Floorperson Name Role Phone Unavailable Primary Care Provider Unavailabl e Social History Tobacco Use Types Packs/Day Years Used Date Smoking Tobacco: Never Assessed Sex and Gender Information Value Date Recorded Sex Assigned at Not on file Legal Sex Male 7:40 PM EDT Gender Identity Not on file Sexual Orientation Not on file Plan of Treatment Not on file Insurance [facility] MEDICARE
--- OUTSIDE RECORDS SUMMARY | 2025-03-14 10:54 | XMS_ITS | Clinical Summary ---
Author Organization [employer] tem Address [id number] [address] [place] [address] Care Team Providers Care Ticket Dispenser Changer Name Role Phone Mal Perez DO Primary Care Provider [phone] Allergies No known active allergies Medications ferrous [...] Pericardial effusion 08/29/2021 COVID-19 08/29/2021 Atherosclerosis of [place] co ronary artery of [place] heart without angina pectoris 08/29/2021 Immunizations No [...] 2:06 AM 09/03/2021 8:28 PM Care Teams Ticket Dispenser Changer Relationship Specialty Start Date End Date Mal Perez DO PCP - General Family Medicine 08/24/21
--- OUTSIDE RECORDS SUMMARY | 2025-03-14 10:54 | XMS_ITS | Encounter Summary ---
Author Organization [facility] Address [address] [place] [address] Care Team Providers Care Mixed Signal Design Engineer Name Role Phone House, Mal Bolden MD Unavailable Gilberto Stockton MD Unavailable Teressa Sierra SURVEYING OR SPATIAL SCIENCE TECHNICIAN Unavailable [phone] Gilberto Stockton MD Primary Care Provider Gilberto Stockton MD Unavailable Encounter Details Date Type Department Care Team (Late st Contact Info) Description 03/18/[address] [address] [id number] London Alcantara MD 703 [facility] [address] [place] [address] Social History Tobacco Use Types [...] Visit [facility] [address] [place] [phone] Teressa Sierra NP [address] [place] [address] 08/10/2025 1:00 PM EST Office Visit [facility] [address] [place] [address] Brenna Dangelo PA [address] [place] [address] 12/25/2025 4:30 PM EDT Office Visit [facility] [address] [place] [address] Teressa Sierra, CUAUHTEMOC [address] [place] [address] documented as of this encounter Visit Diagnoses Not on filedocumented in this encounter Care Teams Mixed Signal Design Engineer Relationship Specialty Start Date End Date Mal Perez MD PCP - External PCP Family Medicine 04/24/23 Gilberto Stockton MD [address] [place] [address] PCP - Devoted 08/24/23 08/23/24 Gilberto Stockton MD [address] [place] [address] PCP - General Family Medicine 03/09/24 Gilberto Stockton MD [address] [place] [address] PCP - Medical [facility] 08/24/2408/23 Teressa Sierra NP [address] [place] [address] Nurse Practitioner Family Medicine 09/09/23 documented as of this encounter
--- OUTSIDE RECORDS SUMMARY | 2025-03-14 10:54 | XMS_ITS | Encounter Summary ---
Author Organization [facility] Address [address] [place] [address] Care Team Providers Care News Content Specialist Name Role Phone House, Mal Bolden MD Unavailable [phone] Teressa Sierra NP Unavailable [phone] Gilberto Stockton MD Primary Care Provider [phone] Gilberto Stockton MD Unavailable Encounter Details Date Type Department Care Team (Late st Contact Info) Description 01/03/2025 Results Follow-Up [facility] [address] [facility] [address] [place] [address] Brenna Dangelo PA [address] [facility] [address] [place] [address] Social History Tobacco Use Types [...] How often do you attend chur or orthodox services? Never 12/14/2023 Do you belong to any clubs o r organizations such as latter-day groups, unions, fraternal or athletic groups, or [...] Recorded Patient Health Questionnaire-2 Score 0 12/19/2024 [facility] - Occupational Stress Questionnaire Answer Date [...] place to sleep or slept in a halfway (including now)? No 12/14/2023 Sex and Gender [...] Office Visit [facility] [address] [place] [address] Teressa Sierra NP [address] [place] [address] 08/10/2025 1:00 PM EST Office Visit [facility] [address] [place] [address] Brenna Dangelo PA [address] [place] [address] 12/25/2025 4:30 PM EDT Office Visit [facility] [address] [place] [address] Teressa Sierra, CUAU[place]OC [address] [place] [address] documented as of this encounter Visit Diagnoses Not on filedocumented in this encounter Additional Health Concerns Assessment Noted Time PHQ-9 Depression Total Score: 2 12/20/19 25 5:02 PM EDT documented as of this encounter Care Teams News Content Specialist Relationship Specialty Start Date End Date Mal Perez MD PCP - External PCP Family Medicine 04/24/23 Gilberto Stockton MD [address] [place] [address] PCP - General Family Medicine 03/09/24 Gilberto Stockton MD [address] [place] [address] PCP - Medical [facility] 08/24/2408/23 Teressa Sierra NP [address] [place] [address] Nurse Practitioner Family Medicine 09/09/23 documented as of this encounter
--- OUTSIDE RECORDS SUMMARY | 2025-03-14 10:54 | XMS_ITS | Encounter Summary ---
Author Organization [facility] Address [address] [place] [address] Care Team Providers Care Lanolin Plant Operator Name Role Phone House, Mal Bolden MD Unavailable [phone] Teressa Sierra NP Unavailable [phone] Gilberto Stockton MD Primary Care Provider [phone] Gilberto Stockton MD Unavailable Encounter Details Date Type Department Care Team (Late st Contact Info) Description 02/13/2025 Results Follow-Up [facility] [address] [facility] [address] [place] [address] Yadi Malik MD [address] [facility] [address] [place] [address] Social History Tobacco Use Types [...] often do you attend chur ch or anglican services? Never 12/14/2023 Do you belong to any clubs o r organizations such as islam groups, unions, fraternal or athletic groups, or [...] Recorded Patient Health Questionnaire-2 Score 0 12/19/2024 [facility] - Occupational Stress Questionnaire Answer Date [...] Office Visit [facility] [address] [place] [address] Teressa Sierra NP [address] [place] [address] 08/10/2025 1:00 PM EST Office Visit [facility] [address] [place] [address] Brenna Dangelo PA [address] [place] [address] 12/25/2025 4:30 PM EDT Office Visit [facility] [address] [place] [address] Teressa Sierra, CU[place] [address] [place] [address] documented as of this encounter Visit Diagnoses Not on filedocumented in this encounter Additional Health Concerns Assessment Noted Time PHQ-9 Depression Total Score: 2 12/20/19 25 5:02 PM EDT documented as of this encounter Care Teams Lanolin Plant Operator Relationship Specialty Start Date End Date Mal Perez MD PCP - External PCP Family Medicine 04/24/23 Gilberto Stockton MD [address] [place] [address] PCP - General Family Medicine 03/09/24 Gilberto Stockton MD [address] [place] [address] PCP - Medical [facility] 08/24/2408/23 Teressa Sierra NP [address] [place] [address] Nurse Practitioner Family Medicine 09/09/23 documented as of this encounter
--- OUTSIDE RECORDS SUMMARY | 2025-03-14 10:54 | XMS_ITS | Encounter Summary ---
Author Organization [facility] Address [address] [place] [address] Care Team Providers Care Auricular Therapist Name Role Phone Teressa Sierra MD Primary Care Provider [phone] Encounter Details Date Type Department Care Team (Late st Contact Info) Description 02/28/2025 Telephone [facility] at [facility] [address] [place] [address] Katty Peters MA Social History Tobacco Use Types Packs/Day Years Used Date Smoking Tobacco: Former Cigarettes Smokeless Tobacco: Never Alcohol Use Standard Drinks/Week [...] on file documented as of this encounter Miscellaneous Notes * Telephone Encounter - Katty Peters MA - 02/28/2025 1:07 PM EDT Images from the original note were not included. Regarding labs results and echo from 02/21/2025: MD Katty Tan MA His echo and blood testing show stable cardiac and renal function. Continue same treatment and follow up in 6 months. Spoke with patient and informed him of result. He verbalized understanding. documented in this encounter Plan of Treatment Not on file documented as of this encounter Visit Diagnoses Not on filedocumented in this encounter Care Teams Auricular Therapist Relationship Specialty Start Date End Date Teressa Sierra MD [address] [place] [address] PCP - General Nurse Practitioner 12/17/23 documented as of this encounter
--- OUTSIDE RECORDS SUMMARY | 2025-03-14 10:54 | XMS_ITS | Encounter Summary ---
Author Organization [facility] Address [address] [place] [address] Care Team Providers Care Post Anesthesia Nurse Name Role Phone House, Mal Bolden MD Unavailable Gilberto Stockton MD Unavailable Teressa Sierra PHYSICAL PLANT MANAGER Unavailable [phone] Gilberto Stockton MD Primary Care Provider Gilberto Stockton MD Unavailable Encounter Details Date Type Department Care Team (Late st Contact Info) Description 03/04/[address] [facility] [address] [phone] London Alcantara MD [address] [facility] [address] [place] [address] Social History Tobacco Use Types [...] Visit [facility] [address] [place] [address] Teressa Sierra NP [address] [place] [address] 08/10/2025 1:00 PM EST Office Visit [facility] [address] [place] [address] Brenna Dangelo PA [address] [place] [address] 12/25/2025 4:30 PM EDT Office Visit [facility] [address] [place] [address] Teressa Sierra, CUAUHTEMOC [address] [place] [address] documented as of this encounter Visit Diagnoses Not on filedocumented in this encounter Care Teams Post Anesthesia Nurse Relationship Specialty Start Date End Date Mal Perez MD PCP - External PCP Family Medicine 04/24/23 Gilberto Stockton MD [address] [place] [address] PCP - Devoted 08/24/23 08/23/24 Gilberto Stockton MD [address] [place] [address] PCP - General Family Medicine 03/09/24 Gilberto Stockton MD [address] [place] [address] PCP - Medical [facility] 08/24/2408/23 Teressa Sierra NP [address] [place] [address] Nurse Practitioner Family Medicine 09/09/23 documented as of this encounter
== END 2025-03-14 10:50 | disposition home or self-care (01) ==
LOC: WC 10:49
PROVIDERS: PCP Nurse Practitioner; Visit Provider Physician Assistant
DX: I87.311 Chronic venous hypertension (idiopathic) with ulcer of right lower extremity (principal); L97.812 Non-pressure chronic ulcer of other part of right lower leg with fat layer exposed; L97.311 Non-pressure chronic ulcer of right ankle limited to breakdown of skin
CPT/HCPCS: 29580

== ENCOUNTER 2025-03-28 09:44 | Outpatient (OUT) | payer MEDICARE, SELFPAY ==
--- OUTSIDE RECORDS SUMMARY | 2024-06-02 03:18 | XMS_ITS ---
Author Organization [facility] in [place] Address [address] [place] [address] Care Team Providers Care Pharmacy Messenger Name Role Phone Teressa Sierra CNP Primary Care Provider Unavail bryon Mayers Wallace Unavailable [phone] REASON FOR VISIT Trelegy Refill Medications Medication SIG (Take, Route, Frequency, Duration) Notes Start Date End Date Status Trelegy Ellipta 100-62.5-25 MCG/ACT 1 puff Inhalation QD for 90 days Rinse after use Rinse after use 06/22/2023 Active Encounters Encounter Location Date Provider Diagnosis Pulmonary Medicine [place] [address] [place] [address] 06/02/2024 Wallace Mayers COPD (chronic obstructive pulmonary disease) J44.9 Assessments Encounter Date Diagnosis (ICD Code) Assessment Notes Treatment Notes Treatment Clinical Notes Section Notes 06/02/2024 COPD (chronic obstructive pulmonary disease) (ICD-10 - J44.9) Plan Of Treatment Medication Medication Name Sig Start Date Stop Date Notes Trelegy Ellipta 100-62.5-25 MCG/ACT 1 puff Inhalation QD for 90 days 06/22/2023 Rinse after use Progress Notes * Shan MCQUEEN ADOB:[birth year] (79 yo M)Acc No.[id number]:06/02/2024 Patient: Bessie FRANK Shan Desai :1945 A ge:79 Y S ex:Male Address:[address] [place] [address], [place], [address] * Refills Refill Trelegy Ellipta Aerosol Powder Breath Activated, 100-62.5-25 MCG/ACT, Inhalation, 3 ea, 1 puff, QD, 90 days, Refills=4 Subjective: * Chief Complaints: * T relegy Refill * Medical History: * Surgical History: * Hospitalization/Major Diagno stic Procedure: * Medications: Objective: * Vitals: * Physical Examination: Assessment: * Assessment: 1. C OPD (chronic obstructive pulmonary disease) - J44.9 (Primary) Plan: * Treatment: * Procedure Codes: * true * Date: Generated for Viki segundo/Josué/Lisandrasmitting on: 0 03/28/2025 09:47 AM EDT
--- OUTSIDE RECORDS SUMMARY | 2025-02-07 06:30 | XMS_ITS ---
Author Organization The [facility] in [place] Address [address] [place] [address] Care Team Providers Care Helicopter Officer Name Role Phone Teressa Sierra CNP Primary Care Provider Unavail able Wallace Mayers Unavailable [phone] Allergies No Known Allergies REASON FOR VISIT 1y COPD Medications Medication SIG (Take, Route, Frequency, Duration) Notes Start Date End Date Status Trelegy Ellipta 100-62.5-25 MCG/ACT 1 puff Inhalation QD for 90 days Rinse after use Rinse after use 06/22/2023 Active Isosorbide Mononitrate ER 30 MG 1 tablet in the morning Orally Once a day Active FeroSul 325 (65 Fe) MG TAKE 1 TABLET BY MOUTH EVERY MORNING WITH a meal Oral for 72 Days Active Spironolactone 25 MG 1 tablet Orally Active Ozempic (0.25 or 0.5 MG/DOSE) 2 MG/3ML Subcutaneous for 56 Days Active Aspirin 81 81 MG 1 tablet Orally Once a day Active Albuterol Sulfate HFA 108 (90 Base) MCG/ACT 2 puffs as needed for SOB Inhalation Q4H for 90 days Active Atorvastatin Calcium 40 MG 1 tablet Orally Once a day Active CeleBREX 200 MG 1 capsule with food Orally Once a day Active Carvedilol 12.5 MG 1 tablet with food Orally Twice a day Active Social History Tobacco Use: Social History Observation Description Date Details (start date - stop date) Former Smoker NA - NA Tobacco Control (Standard) Question Answer Notes Tobacco use: Former smoker How long has it been since y ou last smoked? 1-5 years Additional Findings: Tobacco non-user Ex -moderate cigarette smoker (10-19/day) Encounters Encounter Location Date Provider Diagnosis [facility] [address] [place] [address] 02/07/2025 Wallacecricket Diaz Plan Of Treatment No Information Procedure Notes * Category Sub-Category Detail Notes PFT Data: 04/05/2021 - [facility] -FEV1/FVC: 68%-FEV1: 76%-FVC: 80%-No bronchodilator administered-RV: 151%-T%-DLCO: 58%-Flow-volume loop: Moderate obstruction Alpha-1 Antitrypsin Screening Date: 02/12/2023 Genotype: MM Progress Notes * Shan MCQUEEN ADOB:[birth year] (79 yo M)Acc No.[id number]:02/07/2025 UNLOCKED PROGRESS NOTE Follow Up Patient: Shan TELLEZ Provider: Bobby Mayers DO :1945 A ge:79 Y S ex:Male Date:02/07/2025 Address:[address] [place] [address], [facility] [place], [id number] Pcp:Teressa Sierra, ASSEMBLER CATERPILLAR SPIDER Subjective: * Chief Complaints: * 1 . 1y COPD. * Medical History: C oronary arteriosclerosis in hug[place] artery, Chronic diastolic (congestive) heart failure, Benign essential hypertension, Pericardial effusion, MGUS (monoclonal gammopathy of unknown significance), History of COVID-19, Stage 3 chronic kidney disease, unspecified whether stage 3a or 3b CKD, History of tobacco abuse, Hyperlipidemia, unspecified hyperlipidemia type, NSVT (nonsustained ventricular tachycardia), Other secondary pulmonary hypertension, COPD (chronic obstructive pulmonary disease), JOSUE (obstructive sleep apnea). 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 * Hospitalization/Major Diagno stic Procedure: S epsis/Pneumonia 08/18/2022. * Family History: M other: respiratory diseases, diagnosed with Unspecified heart disease. S ister(s): pancreatic cancer, diagnosed with Other malignant neoplasm of unspecified site. P aternal uncle: Lung cancer, diagnosed with Other malignant neoplasm of unspecified site. * Social History: T obacco Use: T obacco Control (Standard) T obacco use: F ormer smoker H ow long has it been since you last smoked??1-5 years A dditional Findings: Tobacco non-user E x-moderate cigarette smoker (10-19/day) Electronic Cigarette use C urrent user N o LM: Additional Tobacco Questions N umber of Years Pt Smoked: 2 8 N umber of Packs per Day: 1 (28 pack-years) When did you stop smokin. 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 D rugs/Alcohol: D rugs H ave you used drugs other than those for medical reasons in the past 12 months? N o D oes the Patient have a History of Drug Abuse in the Past? N o Caffeine I ntake: n one Do you drink alcohol?: Yes, Daily. Do you smoke marijuana?: Denies. * Medications: T aking Albuterol Sulfate HFA 108 (90 Base) MCG/ACT Aerosol Solution 2 puffs as needed for SOB Inhalation Q4H , Taking Aspirin 81(Aspirin) 81 MG Tablet Delayed Release 1 tablet Orally Once a day , Taking Atorvastatin Calcium 40 MG Tablet 1 tablet Orally Once a day , Taking Carvedilol 12.5 MG Tablet 1 tablet with food Orally Twice a day , Taking CeleBREX(Celecoxib) 200 MG Capsule 1 capsule with food Orally Once a day , Taking FeroSul(Ferrous Sulfate) 325 (65 Fe) MG Tablet TAKE 1 TABLET BY MOUTH EVERY MORNING WITH a meal Oral , Taking Isosorbide Mononitrate ER 30 MG Tablet Extended Release 24 Hour 1 tablet in the morning Orally Once a day , Taking Ozempic (0.25 or 0.5 MG/DOSE)(Semaglutide(0.25 or 0.5MG/DOS)) 2 MG/3ML Solution Pen-injector Subcutaneous , Taking Spironolactone 25 MG Tablet 1 tablet Orally , Taking Trelegy Ellipta(Qwhnwdlhlvo-Whqoaostr-Ydtebq) 100-62.5-25 MCG/ACT Aerosol Powder Breath Activated 1 puff Inhalation QD Rinse after use, Notes to Pharmacist: Rinse after use * Allergies: N .K.D.A. Objective: * Vitals: Assessment: Plan: * Treatment: * Procedures: A lpha-1 Antitrypsin: Screening Date: . Genotype: Yenny Bolden FT: Data: 04/05/2021 - [facility] -FEV1/FVC: 68% -FEV1: 76% -FVC: 80% -No bronchodilator administered -RV: 151% -T% -DLCO: 58% -Flow-volume loop: Moderate obstruction. * Preventive Medicine: COVID Vaccination: H as patient had COVID Vaccination? COVID Vaccination Y es 10/30/2020 Immunization Status: P neumovacc P t Refused. I nfluenza P t Refused. Screenings/Counseling: F ALL RISK SCREENING Fall Risk Assessment: T wo or more falls without injury in the past year Are you afraid of falling? Y es T OBACCO ACTION PLAN Patient counselled on the dangers of tobacco use and urged to quit. 0 02/10/2024 Former Educational materials on smoking cessation provided 0 02/10/2024 Former F ROMELIA EXCLUSION Reason: P atient Reason refused/declined Type of Patient Reason: D rug declined by patient B [place] ACTION PLAN Above Normal BMI Follow-up D ietary management education, guidance, and counseling * * Electronic signature of Oneida Mayers DO on 03/28/2025 at 09:47 AM EDT Sign off status: Pending Visit Status: N /S N/C (No Show/No Charge) * Provider: Bobby Mayers DO Date: 0 02/07/2025 Generated for Viki segundo/Josué/Carlos Aitting on: 0 03/28/2025 09:47 AM EDT
--- OUTSIDE RECORDS SUMMARY | 2025-02-07 06:59 | XMS_ITS ---
Author Organization [facility] in [place] Address [address] [place] [address] Care Team Providers Care Developer Trading Systems Name Role Phone Teressa Sierra CNP Primary Care Provider Wallace Stanton Unavailable [phone] REASON FOR VISIT No Show Appointment Encounters Encounter Location Date Provider Diagnosis Pulmonary Medicine [place] [address] [place] [address] 02/07/2025 Wallace Mayers Plan Of Treatment No Information Progress Notes * Shan MCQUEEN ADOB:[birth year] (79 yo M)Acc No.[id number]:02/07/2025 Patient: Bessie FRANK Shan Desai :1945 A ge:79 Y S ex:Male Address:[address] [place] [address], [place], [address] * true * Date: Generated for Viki segundo/Josué/eTransmitting on: 0 03/28/2025 09:47 AM EDT
--- OUTSIDE RECORDS SUMMARY | 2025-03-21 15:00 | XMS_ITS | Encounter Summary ---
Author Organization [facility] Address [address] [place] [address] Care Team Providers Care Floor Layer Helper Name Role Phone House, Mal Bolden MD Unavailable [phone] eTressa Sierra NP Unavailable [phone] Gilberto Stockton MD Primary Care Provider [phone] Gilberto Stockton MD Unavailable Reason for Visit * Reason Comments Diabetes Encounter Details Date Type Department Care Team (Late st Contact Info) Description 03/21/2025 3:00 PM EDT [facility] [address] [place] [address] Teressa Sierra, CUAUHTEMOC [address] [place] [address] Essential hypertension (Primary Dx); Obstructive sleep apnea syndrome; Chronic obstructive pulmonary disease, unspecified COPD type (HCC); Chronic diastolic (congestive) heart failure ([facility]); 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 ; Bilateral lower extremity edema; Type 2 diabetes mellitus with stage 3 chronic kidney disease, without long-term current use of insulin, unspecified whether stage 3a or 3b CKD (HCC); Morbid (severe) obesity due to excess calories ([facility]); MGUS (monoclonal gammopathy of unknown significance); Atherosclerosis of lytton coronary artery of lytton heart without angina pectoris ; Mixed hyperlipidemia ; Atherosclerotic heart disease of lytton coronary artery without angina pectoris Social History Tobacco Use Types Packs/Day Years [...] any clubs o r organizations such as lutheran groups, unions, fraternal or athletic groups, or [...] Recorded Patient Health Questionnaire-2 Score 0 12/19/2024 [facility] [place] [facility] - Occupational Stress [...] place to sleep or slept in a [facility] (including now)? No 12/14/2023 Sex and Gender Information Value Date Recorded Sex Assigned at Not on file Legal Sex Male 7:08 PM EDT Gender Identity Not on file Sexual Orientation Not on file documented as of this encounter Last Filed Vital Signs Vital Sign Reading Time Taken Comments Blood Pressure 110/68 03/21/2025 3:10 PM EDT Pulse 59 03/21/2025 3:10 PM EDT Temperature 36.7 C (98.1 F) 03/21/2025 3:10 PM EDT Respiratory Rate 24 03/21/2025 3:10 PM EDT Oxygen Saturation 94% 03/21/2025 3:10 PM EDT Inhaled Oxygen Concentration - - Weight 148 kg (327 lb 3.2 oz) 03/21/2025 3:10 PM EDT Height - - Body Mass Index 46.28 09/27/2024 2:06 PM EST documented in this encounter Progress Notes * JAY EDWARDS - 03/21/2025 3:00 PM EDT Both legs are wrapped-wound nurses come 2x a week to do dressings, they were there yesterday. Right hip pain- limping and had a hard time stepping on scale Pt would like to discuss getting him a new inhaler having troubles breathing with the weather. He sees a [employer] sales representative in [place] in May. * Teressa Sierra NP - 03/21/2025 3:00 PM EDT Images from the original note were not included. Shan Young is a 79 y.o. male presents with chief complaint of Diabetes HPI: Here for recheck: Was under the care for dr woodruff, getting a new [employer] sales representative, appt with dr wayne osei in [place], right now only using albuterol Was unable to do trelegy d/t cost. Helped a lot when he was using this, out of trelegy for about a year. Some wheezing, winded easily, productive cough white sputum. Diabetes He presents for his follow-up diabetic visit. He has type 2 diabetes mellitus. His disease course has been stable. Pertinent negatives for hypoglycemia include no dizziness, headaches, nervousness/anxiousness, seizures, sleepiness, speech difficulty or tremors. Associated symptoms include fatigue. Pertinent negatives for diabetes include no blurred vision, no chest pain, no polydipsia, no polyphagia, no polyuria and no weakness. There are no hypoglycemic complications. Symptoms are stable. Diabetic complications include peripheral neuropathy. Pertinent negatives for diabetic complications include no PVD. Risk factors for coronary artery disease include diabetes mellitus, dyslipidemia, hypertension, male sex, obesity and sedentary lifestyle. Current diabetic treatment includes oral agent (dual therapy). He is compliant with treatment all of the time. His overall blood glucose range is 110-130 mg/dl. An RUBINA inhibitor/angiotensin II receptor fitz is not being taken. Eye exam is current. Hypertension This is a chronic problem. The current episode started more than 1 year ago. The problem is controlled. Associated symptoms include peripheral edema and shortness of breath. Pertinent negatives include no blurred vision, chest pain, headaches or palpitations. There are no associated agents to hypertension. Risk factors for coronary artery disease include diabetes mellitus, dyslipidemia, male gender, obesity and sedentary lifestyle. Past treatments include calcium channel blockers, beta blockersand diuretics. The current treatment provides significant improvement. Hypertensive end-organ damage includes CAD/TX and heart failure. There is no history of PVD. SUBJECTIVE: MEDICATIONS: Current Outpatient Medications Medication Instructions [...] mg, Oral, 2 times daily with meals furosemide (LASIX) 40 mg, Daily glipiZIDE (GLUCOTROL) 2.5 mg, Oral, Daily glucose blood (True Metrix Blood Glucose Test) test strip USE DIRECTED to test BLOOD SUGAR DAILY isosorbide mononitrate ER (IMDUR) 30 mg, Daily Lancets 33G misc No dose, route, or frequency recorded. Lancets 33G misc 1 each, Does not apply, Daily spironolactone (ALDACTONE) 12.5 mg, Oral, Daily TraZODone & Diet Manage Prod (TRAZAMINE PO) 50 mg, Oral Trelegy Ellipta 100-62.5-25 MCG/ACT aerosol powder 1 puff, Daily ALLERGIES: No Known Allergies REVIEW OF SYMPTOMS: Review of Systems Constitutional: Positive for fatigue. Negative for activity change, appetite change, chills, fever and unexpected weight change. HENT: Negative for congestion, ear pain, nosebleeds, rhinorrhea, sinus pressure, sneezing, sore throat, trouble swallowing and voice change. Eyes: Negative for blurred vision, pain, discharge and visual disturbance. Respiratory: Positive for cough and shortness of breath. Negative for apnea, chest tightness and wheezing. Cardiovascular: Positive for leg swelling. Negative for chest pain and palpitations. Gastrointestinal: Negative for abdominal distention, abdominal pain, blood in stool, constipation, diarrhea, nausea and vomiting. Genitourinary: Negative for decreased urine volume, difficulty urinating, dysuria, flank pain and hematuria. Musculoskeletal: Negative for arthralgias, back pain, joint swelling and myalgias. Skin: Negative for color change, rash and wound. Neurological: Negative for dizziness, tremors, seizures, speech difficulty, weakness, numbness and headaches. Psychiatric/Behavioral: Negative for agitation, decreased concentration, hallucinations, self-injury, sleep disturbance and suicidal ideas. The patient is not nervous/anxious. Hematological: Negative for adenopathy. Does not bruise/bleed easily. Endocrine: Negative for cold intolerance, heat intolerance, polydipsia, polyphagia and polyuria. Allergic/Immunologic: Negative for environmental allergies and food allergies. PAST MEDICAL HISTORY Past Medical History: Diagnosis Date Anemia CAD (coronary artery disease) Constipation COPD (chronic obstructive pulmonary disease) (HCC) Diabetes mellitus, type II (HCC) Hearing decreased Heart disease Hip pain, right Hypercholesterolemia Hypertension Iron deficiency Myocardial infarction (HCC) Osteoarthritis of both knees, unspecified osteoarthritis type Pneumonia Sleep apnea Superficial phlebitis and thrombophlebitis of left lower extremity Superficial phlebitis and thrombophlebitis of right lower extremity Varicose veins of bilateral lower extremities with pain Past Surgical History: Procedure Laterality Date APPENDECTOMY CARDIAC SURGERY 04/12/2021 bypass x [address] ANGIOGRAM HEART CORONARY 09/03/2021 CT ANGIOGRAM TAVR 09/03/2021 KNEE ARTHROPLASTY Right 2010 Dr. Ron KNEE ARTHROPLASTY Left 2006 Dr. Lester NOSE SURGERY SKIN BIOPSY family history includes Cancer in his sister; Diabetes in his father and mother; Heart disease in his father and mother; Hypertension in his father and mother; Pulmonary embolism in his sister; Stroke in his brother. OBJECTIVE: Visit Vitals BP 110/68 (BP Location: Left arm, Patient Position: Sitting, BP Cuff Size: Large adult) Pulse 59 Temp 98.1 ??F (Temporal) Resp 24 Wt 327 lb 3.2 oz SpO2 94% BMI 46.28 kg/m?? Smoking Status Former BSA 2.71 m?? Physical Exam Vitals and nursing note reviewed. Constitutional: Appearance: Normal appearance. HENT: Head: Normocephalic. Right Ear: External ear [...] Pulmonary effort is normal. Breath sounds: Wheezing (faint exp) present. Abdominal: General: Bowel sounds are normal. There is no distension. Palpations: Abdomen is soft. Tenderness: There is no abdominal tenderness. Musculoskeletal: Cervical back: Neck supple. Right lower leg: Edema present. Left lower leg: Edema present. Comments: 1+ pretibial edema Wraps on bilat legs, under the care of wound care Lymphadenopathy: Cervical: No cervical adenopathy. Skin: General: [...] in a year I did contact the [facility] Sleep lab ext [phone] to find out about scheduling the patient to see about an updated PAP machine: [email or web address] left at 16:20 on 09/27/24 Chronic obstructive pulmonary disease, unspecified (HCC) Current meds: trelegy inhaler and albuterol inhaler Follows with pulmonology Dr Riana Melchor 100 inhalers: #4 lot [id number], exp 03/18 Relevant Medications Zmazxblcrok-Iuupszldj-Swzzef (Trelegy Ellipta) 100-62.5-25 MCG/ACT aerosol powder CAD (coronary artery disease) Continue current meds/dose Relevant Medications atorvastatin (Lipitor) 40 MG tablet Bilateral lower extremity edema Continue spironolactone script Elevate legs as much as possible Limit sodium and wear compression stockings Essential hypertension (Chronic) Please check blood pressure daily and record DASH diet Limit caffeine Take medication as directed Contact office if chest pain, pressure, dizziness, shortness of breath, swelling legs Recommend slow position changes Current meds: amlodipine, carvedilol, aldactone Chronic diastolic (congestive) heart failure (HCC) Follows with [facility] Current meds: asa, statin, b fitz, imdur, aldactone, amlodipine ECHO 02/21/25: EF 74%, bilat atrial enlargement: right mild, left mod. No acute valve issues, mild elevated right sided pressures at 39 MGUS (monoclonal gammopathy of unknown significance) Atherosclerosis of lytton coronary artery of lytton heart without angina pectoris Relevant Medications atorvastatin (Lipitor) 40 MG tablet Morbid (severe) obesity due to excess calories ([facility]) Discussed with patient their BMI (actual, verses recommended). We have also discussed lifestyle modifications: attempts to perform physical activity as chronic conditions allow, also to monitor dietary intake: increasing protein/fruits/veggies and lowering carb intake (unless contraindicated). Limit sodas, juices, and sugary drinks. Activity difficult d/t multiple co morbidities Mixed hyperlipidemia Relevant Medications atorvastatin (Lipitor) 40 MG tablet Type 2 diabetes mellitus with diabetic chronic kidney disease (HCC) Check blood sugars daily, notify if <70 or >200. Take medications (pills or insulin) as directed. Monitor for s/s of hypoglycemia (sweaty, dizziness, nausea, vomiting, or shakiness). Watch for increase in thirst, urination, or appetite. Inspect feet frequently monitoring for open wounds , andalso recommend yearly eye exam. Pt should attempt to remain as physically active as chronic conditions allow, as well as trying to follow a diet low in carbohydrates, and simple sugars. Current meds: asa,statin, glipizide, cannot afford jardiance A1c 5.9% 12/19/24 Relevant Orders POCT glycosylated hemoglobin (Hb A1C) docked device (Completed) Other Visit Diagnoses Atherosclerotic heart disease of lytton coronary artery without angina pectoris Relevant Medications carvedilol (Coreg) 12.5 MG tablet * Teressa Sierra NP - 03/21/2025 7:15 AM EDTAssociated Problem(s): Morbid (severe) obesity due to excess calories ([facility]) Discussed with patient their BMI (actual, verses recommended). We have also discussed lifestyle modifications: attempts to perform physical activity as chronic conditions allow, also to monitor dietary intake: increasing protein/fruits/veggies and lowering carb intake (unless contraindicated). Limit sodas, juices, and sugary drinks. Activity difficult d/t multiple co morbidities * Teressa Sierra NP - 03/21/2025 7:15 AM EDTAssociated Problem(s): Type 2 diabetes mellitus with diabetic chronic kidney disease (HCC) Check blood sugars daily, notify if <70 or >200. Take medications (pills or insulin) as directed. Monitor for s/s of hypoglycemia (sweaty, dizziness, nausea, vomiting, or shakiness). Watch for increase in thirst, urination, or appetite. Inspect feet frequently monitoring for open wounds , andalso recommend yearly eye exam. Pt should attempt to remain as physically active as chronic conditions allow, as well as trying to follow a diet low in carbohydrates, and simple sugars. Current meds: asa,statin, glipizide, cannot afford jardiance A1c 5.9% 12/19/24 * Teressa Sierra NP - 03/21/2025 7:14 AM EDTAssociated Problem(s): Bilateral lower extremity edema Continue spironolactone script Elevate legs as much as possible Limit sodium and wear compression stockings * Teressa Sierra NP - 03/21/2025 7:14 AM EDTAssociated Problem(s): CAD (coronary artery disease) Continue current meds/dose * Teressa Sierra NP - 03/21/2025 7:14 AM EDTAssociated Problem(s): Chronic diastolic (congestive) heart failure (HCC) Follows with [facility] Current meds: asa, statin, b fitz, imdur, aldactone, amlodipine ECHO 02/21/25: EF 74%, bilat atrial enlargement: right mild, left mod. No acute valve issues, mild elevated right sided pressures at 39 * Teressa Sierra NP - 03/21/2025 7:14 AM EDTAssociated Problem(s): Essential hypertension Please check blood pressure daily and record DASH diet Limit caffeine Take medication as directed Contact office if chest pain, pressure, dizziness, shortness of breath, swelling legs Recommend slow position changes Current meds: amlodipine, carvedilol, aldactone * Teressa Sierra NP - 03/21/2025 7:14 AM EDTAssociated Problem(s): Varicose veins of bilateral lower extremities with pain Continue with [facility] * Teressa Sierra NP - 03/21/2025 7:13 AM EDTAssociated Problem(s): Chronic obstructive pulmonary disease, unspecified (HCC) Current meds: trelegy inhaler and albuterol inhaler Follows with pulmonology Dr Riana Melchor 100 inhalers: #4 lot [id number], exp 03/18 * Teressa Sierra NP - 03/21/2025 7:13 AM EDTAssociated Problem(s): Sleep apnea You have a diagnosis [...] in a year I did contact the [facility] Sleep lab ext [phone] to find out about scheduling the patient to see about an updated PAP machine: [email or web address] left at 16:20 on 09/27/24 documented in this encounter Plan of Treatment Upcoming Encounters Date Type Department Care Team (Late st Contact Info) Description 06/22/2025 2:00 PM EDT Office Visit [facility] [address] [place] [phone] Teressa Sierra NP [address] [place] [phone] 08/10/2025 1:00 PM EST Office Visit [facility] [address] [place] [phone] Brenna Dangelo PA [address] [place] [address] 12/25/2025 4:30 PM EDT Office Visit [facility] [address] [place] [phone] Teressa Sierra, [place]EMOC [address] [place] [phone] documented as of this encounter Procedures Procedure Name Priority Date/Time Associated Diagnosis Comments POCT GLYCOSYLATED HEMOGLOBIN (HGB A1C) Routine 03/21/2025 3:28 PM EDT Type 2 diabetes mellitus with stage 3 chronic kidney disease, without long-term current use of insulin, unspecified whether stage 3a or 3b CKD (HCC) documented in this encounter Results * (ABNORMAL) POCT glycosylated hemoglobin (Hb A1C) docked device (03/21/2025 3:28 PM EDT) Hemoglobin A1C 6.0 Blood Venous blood specimen / Unknown 03/21/2025 3:28 PM EDT Teressa Sierra NP POINT OF CARE TEST ENTER/EDIT O RDERABLES Final Result documented in this encounter Visit Diagnoses Diagnosis Essential hypertension- Primary Unspecified essential hypertension Obstructive sleep apnea syndrome Obstructive sleep apnea (adult) (pediatric) Chronic obstructive pulmonary disease, unspecified COPD type (HCC) Chronic diastolic (congestive) heart failure (HCC) 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 Bilateral lower extremity edema Type 2 diabetes mellitus with stage 3 chronic kidney disease, without long-term current use of insulin, unspecified whether stage 3a or 3b CKD (HCC) Morbid (severe) obesity due to excess calories ([facility]) MGUS (monoclonal gammopathy of unknown significance) Monoclonal paraproteinemia Atherosclerosis of lytton coronary artery of lytton heart without angina pectoris Mixed hyperlipidemia Mixed hyperlipidemia Atherosclerotic heart disease of lytton coronary artery without angina pectoris documented in this encounter Additional Health Concerns Assessment Noted Time PHQ-9 Depression Total Score: 2 12/20/19 25 5:02 PM EDT documented as of this encounter Care Teams Floor Layer Helper Relationship Specialty Start Date End Date Mal Perez MD PCP - External PCP Family Medicine 04/24/23 Gilberto Stockton MD [address] [place] [phone] PCP - General Family Medicine 03/09/24 Gilberto Stockton MD [address] [place] [address] PCP - Medical [facility] 08/24/2408/23 Teressa Sierra NP [address] [place] [address] Nurse Practitioner Family Medicine 09/09/23 documented as of this encounter
--- OUTSIDE RECORDS SUMMARY | 2025-03-28 09:47 | XMS_ITS | Encounter Summary ---
Author Organization [id number] [address] [place] [address] Care Team Providers Care Tub Rider Name Role Phone Mal Perez DO Primary Care Provider Encounter Details Date Type Department Care Team (Late st Contact Info) Description 08/29/2021 Orders Only [facility] [address] [place] [phone] Transcribe, Orders Support User Pain (Primary [...] documented as of this encounter Care Teams Tub Rider Relationship Specialty Start Date End Date Mal Perez DO PCP - General Family Medicine 08/24/21 documented as of this encounter
--- OUTSIDE RECORDS SUMMARY | 2025-03-28 09:47 | XMS_ITS | Encounter Summary ---
Author Organization [facility] Address [address] [place] [address] Care Team Providers Care Local City Driver Name Role Phone House, Mal Bolden MD Unavailable [phone] Teressa Sierra NP Unavailable [phone] Gilberto Stockton MD Primary Care Provider [phone] Gilberto Stockton MD Unavailable Encounter Details Date Type Department Care Team (Late st Contact Info) Description 03/21/2025 Bamboo flowsheet [facility] [address] [place] [phone] Teressa Sierra, CUAUHTEMOC [address] [place] [address] Social History Tobacco Use Types Packs/Day Years [...] How often do you attend chur or quaker services? Never 12/14/2023 Do you belong to any clubs o r organizations such as roman catholic groups, unions, fraternal or athletic groups, or [...] Recorded Patient Health Questionnaire-2 Score 0 12/19/2024 [facility] - Occupational [...] place to sleep or slept in a intermediate (including now)? No 12/14/2023 Sex and Gender Information Value Date Recorded Sex Assigned at Not on file Legal Sex Male 7:08 PM EDT Gender Identity Not on file Sexual Orientation Not on file documented as of this encounter Plan of Treatment Upcoming Encounters Date Type Department Care Team (Late st Contact Info) Description 06/22/2025 2:00 PM EDT Office Visit [facility] [address] [place] [address] Teressa Sierra NP [address] [place] [address] 08/10/2025 1:00 PM EST [facility] [address] [place] [address] Brenna Dangelo PA [address] [place] [address] 12/25/2025 4:30 PM EDT Office Visit [facility] [address] [place] [address] Teressa Sierra, CU[place]OC [address] [place] [phone] documented as of this encounter Visit Diagnoses Not on filedocumented in this encounter Additional Health Concerns Assessment Noted Time PHQ-9 Depression Total Score: 2 12/20/19 25 5:02 PM EDT documented as of this encounter Care Teams Local City Driver Relationship Specialty Start Date End Date Mal Perez MD PCP - External PCP Family Medicine 04/24/23 Gilberto Stockton MD [address] [place] [address] PCP - General Family Medicine 03/09/24 Gilberto Stockton MD [address] [place] [address] PCP - Medical [facility] 08/24/2408/23 Teressa Sierra NP [address] [place] [address] Nurse Practitioner Family Medicine 09/09/23 documented as of this encounter
--- OUTSIDE RECORDS SUMMARY | 2025-03-28 09:47 | XMS_ITS | Encounter Summary ---
Author Organization [facility] Address [address] [place] [address] Care Team Providers Care Aquatics Assistant Department Head Name Role Phone House, Mal Bolden MD Unavailable [phone] Teressa Sierra NP Unavailable [phone] Gilberto Stockton MD Primary Care Provider [phone] Gilberto Stockton MD Unavailable Reason for Visit * Reason Comments Med Refill Encounter Details Date Type Department Care Team (Late st Contact Info) Description 03/14/2025 Refill [facility] [address] [place] [address] Teressa Sierra, SHERIFF'S SERGEANT [address] [place] [address] Type 2 diabetes mellitus without complication, without long-term current use of insulin (HCC); Localized edema Social History Tobacco Use Types Packs/Day Years [...] often do you attend chur ch or roman catholic services? Never 12/14/2023 Do you belong to [...] Recorded Patient Health Questionnaire-2 Score 0 12/19/2024 [facility] - Occupational [...] encounter Miscellaneous Notes * Telephone Encounter - Teressa Sierra NP - 03/15/2025 9:27 AM EDT Let pt know that his spironolactone/ aldactone script has changed, he is only to be taking 1/2 of a25mg so that will be 12.5mg daily I sent a new script to the [facility] [place] documented in this encounter Plan of Treatment Upcoming Encounters Date Type Department Care Team (Late st Contact Info) Description 06/22/2025 2:00 PM EDT Office Visit [facility] [address] [place] [address] Teressa Sierra NP [address] [place] [address] 08/10/2025 1:00 PM EST Office Visit [facility] [address] [place] [address] Brenna Dangelo PA [address] [place] [address] 12/25/2025 4:30 PM EDT Office Visit [facility] [address] [place] [address] Teressa Sierra, CUAUHTEMOC [address] [place] [address] documented as of this encounter Visit Diagnoses Diagnosis Type 2 diabetes mellitus without complication, without long-term current use of insulin (HCC) Localized edema Edema documented in this encounter Additional Health Concerns Assessment Noted Time PHQ-9 Depression Total Score: 2 12/20/19 25 5:02 PM EDT documented as of this encounter Care Teams Aquatics Assistant Department Head Relationship Specialty Start Date End Date Mal Perez MD PCP - External PCP Family Medicine 04/24/23 Gilberto Stockton MD [address] [place] [address] PCP - General Family Medicine 03/09/24 Gilberto Stockton MD [address] [place] [address] PCP - Medical [facility] 08/24/2408/23 Teressa Sierra NP [address] [place] [address] Nurse Practitioner Family Medicine 09/09/23 documented as of this encounter
--- OUTSIDE RECORDS SUMMARY | 2025-03-28 09:47 | XMS_ITS | Encounter Summary ---
Author Organization [facility] Address [address] [place] [address] Care Team Providers Care Mat Puncher Name Role Phone House, Mal Bolden MD Unavailable Gilberto Stockton MD Unavailable Teressa Sierra NOISE TESTER Unavailable [phone] Gilberto Stockton MD Primary Care Provider Gilberto Stockton MD Unavailable Encounter Details Date Type Department Care Team (Late st Contact Info) Description 02/19/2023 [facility] [address] [phone] London Alcantara MD [address] [address] Social History Tobacco Use Types Packs/Day [...] Office Visit [facility] [address] [place] [address] Teressa Sierra NP [address] [place] [address] 08/10/2025 1:00 PM EST [facility] [address] [place] [address] Brenna Dangelo PA [address] [place] [address] 12/25/2025 4:30 PM EDT Office Visit [facility] [address] [place] [address] Teressa Sierra, CUAUHTEMOC [address] [place] [address] documented as of this encounter Visit Diagnoses Not on filedocumented in this encounter Care Teams Mat Puncher Relationship Specialty Start Date End Date Mal Perez MD PCP - External PCP Family Medicine 04/24/23 Gilberto Stockton MD [address] [place] [address] PCP - [facility] 08/24/23 08/23/24 Gilberto Stockton MD [address] [place] [address] PCP - General Family Medicine 03/09/24 Gilberto Stockton MD [address] [place] [address] PCP - Medical [facility] 08/24/2408/23 Teressa Sierra NP [address] [place] [address] Nurse Practitioner Family Medicine 09/09/23 documented as of this encounter
--- OUTSIDE RECORDS SUMMARY | 2025-03-28 09:47 | XMS_ITS | Clinical Summary ---
Author Organization [facility] Address [address] [place] [address], [address] [place] [address] Care Team Providers Care Character Actress Name Role Phone Unavailable Primary Care Provider Unavailabl e Social History Tobacco Use Types Packs/Day Years Used Date Smoking Tobacco: Never Assessed Sex and Gender Information Value Date Recorded Sex Assigned at Not on file Legal Sex Male 7:40 PM EDT Gender Identity Not on file Sexual Orientation Not on file Plan of Treatment Not on file Insurance [facility] MEDIC[facility]
--- OUTSIDE RECORDS SUMMARY | 2025-03-28 09:47 | XMS_ITS | Encounter Summary ---
Author Organization [facility] Address [address] [place] [address] Care Team Providers Care Butcher Scullion Name Role Phone House, Mal Bolden MD Unavailable Gilberto Stockton MD Unavailable Teressa Sierra SLAB LIFTING ENGINEER Unavailable [phone] Gilberto Stockton MD Primary Care Provider Gilberto Stockton MD Unavailable Encounter Details Date Type Department Care Team (Late st Contact Info) Description 03/04/2023 [facility] [address] [phone] London Alcantara MD [address] [address] Social History Tobacco Use Types [...] Office Visit [facility] [address] [place] [address] Teressa Sierra NP [address] [place] [address] 08/10/2025 1:00 PM EST [facility] [address] [place] [address] Brenna Dangelo PA [address] [place] [address] 12/25/2025 4:30 PM EDT Office Visit [facility] [address] [place] [address] Teressa Sierra, CUAUHTEMOC [address] [place] [address] documented as of this encounter Visit Diagnoses Not on filedocumented in this encounter Care Teams Butcher Scullion Relationship Specialty Start Date End Date Mal Perez MD PCP - External PCP Family Medicine 04/24/23 Gilberto Stockton MD [address] [place] [address] PCP - [facility] 08/24/23 08/23/24 Gilberto Stockton MD [address] [place] [address] PCP - General Family Medicine 03/09/24 Gilberto Stockton MD [address] [place] [address] PCP - Medical [facility] 08/24/2408/23 Teressa Sierra NP [address] [place] [address] Nurse Practitioner Family Medicine 09/09/23 documented as of this encounter
--- OUTSIDE RECORDS SUMMARY | 2025-03-28 09:47 | XMS_ITS | Clinical Summary ---
Author Organization [facility] Address [address] [place] [address] Care Team Providers Care Physician Aide Name Role Phone House Sr., Mal LIU [...] Care Team Description 03/06/2025 Orders Only Respiratory [place] [address] [place] [address] Anya Thompson MD Chronic obstructive pulmonary disease, [...] N ot on file 08/01/2020 Data from: [email or web address]/. Last address used for calculation Not on [...] 10:15 AM EDT Procedure Pulmonary Lab [address] [place] [address] COPD 06/15/2025 10:45 AM EDT Procedure Pulmonary Lab [address] [place] [address] COPD 06/15/2025 11:00 AM EDT Office Visit Pulmonary Medicine [address] [place] [address] Santhosh Quintana MD [address] [place] [address] COPD 06/15/2025 1:00 PM EDT Office Visit [facility] [address] [place] [address] Anya Thompson MD [address] [place] [address] Diagnostics, [facility] [address] [address] Cataract Eval Health Maintenance Due Date Last Done Comments Anxiety Screening 1962 Depression Screening 1962 DTaP,Tdap,Td Vaccine (1 - Tdap) 1963 Pneumococcal Vaccine: 50+ (1 of 1 - PCV) 1994 Shingrix Vaccine (1 of 2) 1994 RSV Vaccine (1 - 1-dose 75+ series) 2019 Advance Directive Discussion 08/24/2024 Diabetes Screening 09/03/2024 [...] - 8.0 g/dL 04/04/2020 2:27 PM EDT [facility] Albumin 4.3 3.9 - 4.9 g/dL 04/04/2020 2:27 PM EDT [facility] Calcium 9.2 8.5 - 10.2 mg/dL 04/04/2020 2:27 PM EDT [facility] Bilirubin, Total 1.2 0.2 - 1.3 mg/dL 04/04/2020 2:27 PM EDT [facility] Alkaline Phosphatase 90 38 - 113 U/L 04/04/2020 2:27 PM EDT [facility] AST 15 14 - 40 U/L 04/04/2020 2:27 PM EDT [facility] Glucose 129(H) 74 - 99 mg/dL 04/04/2020 2:27 PM EDT [facility] Comment: The [place] Diabetes Association (ADA) provides guidance for cutoff [...] Standards of Medical Care in Diabetes 2016, [place] Diabetes Association. Diabetes Care. 2016.39(Suppl 1). BUN 15 9 - 24 mg/dL 04/04/2020 2:27 PM EDT [facility] Creatinine 0.76 0.73 - 1.22 mg/dL 04/04/2020 2:27 PM EDT [facility] Sodium 133(L) 136 - 144 mmol/L 04/04/2020 2:27 PM EDT [facility] Potassium 3.7 3.7 - 5.1 mmol/L 04/04/2020 2:27 PM EDT [facility] Chloride 96(L) 97 - 105 mmol/L 04/04/2020 2:27 PM EDT [facility] CO2 29 22 - 30 mmol/L 04/04/2020 2:27 PM EDT [facility] Anion Gap 8(L) 9 - 18 mmol/L 04/04/2020 2:27 PM EDT [facility] ALT 16 10 - 54 U/L 04/04/2020 2:27 PM T [facility] eGFR- >60 04/04/2020 2:27 PM T [facility] eGFR-All Other Races >60 . 04/04/2020 2:27 PM T [facility] Comment: eGFR (Estimated GFR) Units of [...] us Willie Sotelo MD LABORATORY Final Result [facility] [place] [address] [place] [address] [facility] [address], [place] from Last 3 Months or Most Recently Relevant to Health Maintenance Insurance [employer] O Care Teams Physician Aide Relationship Specialty Start Date End Date Mal Perez Sr., DO PCP - General Family Medicine 04/02/12
--- OUTSIDE RECORDS SUMMARY | 2025-03-28 09:47 | XMS_ITS | Encounter Summary ---
Author Organization [facility] Address [address] [place] [address] Care Team Providers Care Industrial Truck Operator Name Role Phone House, Mal Bolden MD Unavailable Gilberto Stockton MD Unavailable Teressa Sierra SHIPPING TECHNICIAN Unavailable [phone] Gilberto Stockton MD Primary Care Provider [phone] Gilberto Stockton MD Unavailable Encounter Details Date Type Department Care Team (Late st Contact Info) Description 03/18/2023 [facility] [address] [phone] London Alcantara MD [address] [address] Social History Tobacco Use Types [...] 06/22/2025 2:00 PM EDT Office Visit [facility] [address] [place] [address] Teressa Sierra NP [address] [place] [address] 08/10/2025 1:00 PM EST [facility] [address] [place] [address] Brenna Dangelo PA [address] [place] [address] 12/25/2025 4:30 PM EDT Office Visit [facility] [address] [place] [address] Teressa Sierra, CUAUHTEMOC [address] [place] [address] documented as of this encounter Visit Diagnoses Not on filedocumented in this encounter Care Teams Industrial Truck Operator Relationship Specialty Start Date End Date Mal Perez MD PCP - External PCP Family Medicine 04/24/23 Gilberto Stockton MD [address] [place] [address] PCP - Devoted 08/24/23 08/23/24 Gilberto Stockton MD [address] [place] [address] PCP - General Family Medicine 03/09/24 Gilberto Stockton MD [address] [place] [address] PCP - Medical [facility] 08/24/2408/23 Teressa Sierra NP [address] [place] [address] Nurse Practitioner Family Medicine 09/09/23 documented as of this encounter
--- OUTSIDE RECORDS SUMMARY | 2025-03-28 09:48 | XMS_ITS | Encounter Summary ---
Author Organization [facility] Address [address] [place] [address] Care Team Providers Care Production Assembly Operator Name Role Phone House, Mal Bolden MD Unavailable [phone] Teressa Sierra NP Unavailable Gilberto Stockton MD Primary Care Provider [phone] Gilberto Stockton MD Unavailable Encounter Details Date Type Department Care Team (Late st Contact Info) Description 01/03/2025 [facility] [address] [facility] [address] [place] [address] Brenna Dangelo PA [address] [facility] [address] [place] [address] Social History Tobacco Use Types [...] How often do you attend chur or congregational services? Never 12/14/2023 Do you belong to any clubs o r organizations such as alevism groups, unions, fraternal or athletic groups, or [...] Recorded Patient Health Questionnaire-2 Score 0 12/19/2024 [facility] ional [facility] - [...] place to sleep or slept in a retirement (including now)? No 12/14/2023 Sex and Gender [...] Office Visit [facility] [address] [place] [address] Teressa Sierra NP [address] [place] [address] 08/10/2025 1:00 PM EST Office Visit [facility] [address] [place] [address] Brenna Dangelo PA [address] [place] [address] 12/25/2025 4:30 PM EDT Office Visit [facility] [address] [place] [address] Teressa Sierra, CUAUHTEMOC [address] [place] [address] documented as of this encounter Visit Diagnoses Not on filedocumented in this encounter Additional Health Concerns Assessment Noted Time PHQ-9 Depression Total Score: 2 12/20/19 25 5:02 PM EDT documented as of this encounter Care Teams Production Assembly Operator Relationship Specialty Start Date End Date Mal Perez MD PCP - External PCP Family Medicine 04/24/23 Gilberto Stockton MD [address] [place] [address] PCP - General Family Medicine 03/09/24 Gilberto Stockton MD [address] [place] [address] PCP - Medical [facility] 08/24/2408/23 Teressa Sierra NP [address] [place] [address] Nurse Practitioner Family Medicine 09/09/23 documented as of this encounter
--- OUTSIDE RECORDS SUMMARY | 2025-03-28 09:48 | XMS_ITS | Encounter Summary ---
Author Organization [facility] Address [address] [facility] [place] [address] Care Team Providers Care Renal Social Worker Name Role Phone House, Mal Bolden MD Unavailable [phone] Gilberto Stockton MD Unavailable Teressa Sierra NP Unavailable [phone] Gilberto Stockton MD Primary Care Provider [phone] Gilberto Stockton MD Unavailable Encounter Details Date Type Department Care Team (Late st Contact Info) Description 09/07/2023 Abstract [facility] [address] [place] [address] Teressa Sierra, TERRITORY ACCOUNT EXECUTIVE [address] [place] [address] Social History Tobacco Use Types Packs/Day Years [...] 06/22/2025 2:00 PM EDT Office Visit [facility] [address] [place] [address] Teressa Sierra, CUAUHTEMOC [address] [place] [address] 08/10/2025 1:00 PM EST Office Visit [facility] [address] [place] [address] Brenna Dangelo PA [address] [place] [address] 12/25/2025 4:30 PM EDT [facility] [address] [place] [address] Teressa Sierra, TERRITORY ACCOUNT EXECUTIVE [address] [place] [address] documented as of this encounter Visit Diagnoses Not on filedocumented in this encounter Care Teams Renal Social Worker Relationship Specialty Start Date End Date Mal Perez MD PCP - External PCP Family Medicine 04/24/23 Gilberto Stockton MD [address] [place] [address] PCP - Devoted 08/24/23 08/23/24 Gilberto Stockton MD [address] [place] [address] PCP - General Family Medicine 03/09/24 Gilberto Stockton MD [address] [place] [address] PCP - Medical [facility] 08/24/2408/23 Teressa Sierra NP [address] [place] [address] Nurse Practitioner Family Medicine 09/09/23 documented as of this encounter
--- OUTSIDE RECORDS SUMMARY | 2025-03-28 09:48 | XMS_ITS | Encounter Summary ---
Author Organization [facility] Address [address] [place] [address] Care Team Providers Care Tree Fruit And Nut Farming Supervisor Name Role Phone House, Mal Bolden MD Unavailable [phone] Teressa Sierra NP Unavailable [phone] Gilberto Stockton MD Primary Care Provider [phone] Gilberto Stockton MD Unavailable Encounter Details Date Type Department Care Team (Late st Contact Info) Description 02/13/2025 Results Follow-Up [facility] [address] [facility] [address] [place] [address] Yadi Malik MD [address] [facility] [address] [place] [address] Social History Tobacco Use Types Packs/Day Years [...] any clubs o r organizations such as zoroastrianism groups, unions, fraternal [...] Recorded Patient Health Questionnaire-2 Score 0 12/19/2024 [facility] - Occupational Stress [...] Office Visit [facility] [address] [place] [address] Teressa Sierra NP [address] [place] [address] 08/10/2025 1:00 PM EST Office Visit [facility] [address] [place] [address] Brenna Dangelo PA [address] [place] [address] 12/25/2025 4:30 PM EDT Office Visit [facility] [address] [place] [address] Teressa Sierra, CUAUHTEMOC [address] [place] [address] documented as of this encounter Visit Diagnoses Not on filedocumented in this encounter Additional Health Concerns Assessment Noted Time PHQ-9 Depression Total Score: 2 12/20/19 25 5:02 PM EDT documented as of this encounter Care Teams Tree Fruit And Nut Farming Supervisor Relationship Specialty Start Date End Date Mal Perez MD PCP - External PCP Family Medicine 04/24/23 Gilberto Stockton MD [address] [place] [address] PCP - General Family Medicine 03/09/24 Gilberto Stockton MD [address] [place] [address] PCP - Medical [facility] 08/24/2408/23 Teressa Sierra NP [address] [place] [address] Nurse Practitioner Family Medicine 09/09/23 documented as of this encounter
--- OUTSIDE RECORDS SUMMARY | 2025-03-28 09:48 | XMS_ITS | Encounter Summary ---
Author Organization [facility] Address [address] [place] [address] Care Team Providers Care Mold Press Operator Name Role Phone House, Mal Bolden MD Unavailable [phone] Gilberto Stockton MD Unavailable Teressa Sierra NP Unavailable [phone] Gilberto Stockton MD Primary Care Provider [phone] Gilberto Stockton MD Unavailable Reason for Visit * Reason Comments Med Refill Encounter Details Date Type Department Care Team (Late st Contact Info) Description 12/24/2023 [facility] [address] [place] [address] Teressa Sierra, CUAUHTEMOC [address] [place] [address] Social History Tobacco Use Types Packs/Day Years [...] often do you attend chur ch or presybeterian services? Never 12/14/2023 Do you belong to any clubs o r organizations such as yarsanism groups, unions, fraternal or athletic groups, or [...] Recorded Patient Health Questionnaire-2 Score 1 12/14/2023 [facility] Occupat ional Health - Occupational Stress [...] Description 06/22/2025 2:00 PM EDT Office Visit [facility] [address] [place] [address] Teressa Sierra NP [address] [place] [address] 08/10/2025 1:00 PM EST Office Visit [facility] [address] [place] [address] Brenna Dangelo PA [address] [place] [address] 12/25/2025 4:30 PM EDT Office Visit [facility] [address] [place] [address] Teressa Sierra, CUAUHTEMOC [address] [place] [address] documented as of this encounter Visit Diagnoses Not on filedocumented in this encounter Additional Health Concerns Assessment Noted Time PHQ-9 Depression Total Score: 3 12/14/19 24 4:34 PM EDT documented as of this encounter Care Teams Mold Press Operator Relationship Specialty Start Date End Date Mal Perez MD PCP - External PCP Family Medicine 04/24/23 Gilberto Stockton MD [address] [place] [address] PCP - Devoted 08/24/23 08/23/24 Gilberto Stockton MD [address] [place] [address] PCP - General Family Medicine 03/09/24 Gilberto Stockton MD [address] [place] [address] PCP - Medical [facility] 08/24/2408/23 Teressa Sierra, CUAUHTEMOC [address] [place] [address] Nurse Practitioner Family Medicine 09/09/23 documented as of this encounter
--- OUTSIDE RECORDS SUMMARY | 2025-03-28 09:48 | XMS_ITS | Encounter Summary ---
Author Organization [facility] Address [address] [place] [address] Care Team Providers Care Time Study Statistician Name Role Phone House, Mal Bolden MD Unavailable [phone] Gilberto Stockton MD Unavailable Teressa Sierra NP Unavailable [phone] Gilberto Stockton MD Primary Care Provider [phone] Gilberto Stockton MD Unavailable Encounter Details Date [...] How often do you attend chur or pentecostalism services? Never 12/14/2023 Do you belong to [...] Recorded Patient Health Questionnaire-2 Score 1 12/14/2023 [facility] - Occupational Stress Questionnaire Answer Date [...] Office Visit [facility] [address] [place] [address] Teressa Sierra NP [address] [place] [address] 08/10/2025 1:00 PM EST Office [facility] [address] [place] [address] Brenna Dangelo PA [address] [place] [address] 12/25/2025 4:30 PM EDT Office Visit [facility] [address] [place] [address] Teressa Sierra NP [address] [place] [address] documented as of this encounter Procedures Procedure Name Priority Date/Time Associated Diagnosis Comments CA ECHO DOPPLER COMPLETE 01/07/2024 8:32 AM EDT documented in this encounter Results * CA ECHO DOPPLER COMPLETE (01/07/2024 8:32 AM EDT) Anatomical Region Laterality Modality Other 01/07/2024 8:32 AM EDT Narrative 01/07/2024 8:33 [place] [address] Cardiology Report Signed Patient: ARIANNE MCQUEEN MR#: [id number] : 1945 Acct:[id number] Age/Sex: 78 / M ADM Date: 01/05/24 Loc: CARD Attending Dr: ARIELLA GALLEGO APRN Ordering Physician: ARIELLA GALLEGO APRN Date of Service: 01/05/24 Procedure(s): CA echo doppler complete Accession Number(s): [id number] cc: Teressa Sierra PILOT PLANT OPERATOR HELPER; ARIELLA GALLEGO APRN Patient Name: ARIANNE MCQUEEN MR#: [id number] : 1945 Exam Date: 01/05/2024 Ordering Doctor: ARIELLA GALLEGO CNP ECHOCARDIOGRAM REPORT PROCEDURE: CA ECHO DOPPLER COMPLETE INDICATIONS: Diastolic heart failure, dyspnea on exertion, CABG, HI, COPD, hypertension, diabetes COMPARISON: None. [...] HEARN Signed By: 01/07/2433 DD/ 1 TD/TT: Tobacco Sorter: Procedure Note Radiology, Radiologist, MD - 01/07/2024 [place] [address] Cardiology Report Signed Patient: ARIANNE MCQUEEN AMR#: [id number] : 1945cct:[id number] Age/Sex: 78 / MADM Date: 01/05/24 Loc: CARD Attending Dr: ARIELLA GALLEGO APRN Ordering Physician: ARIELLA GALLEGO APRN Date of Service: 01/05/24 Procedure(s): CA echo doppler complete Accession Number(s): [id number] cc: Teressa Sierra PILOT PLANT OPERATOR HELPER; ARIELLA GALLEGO APRN Patient Name: ARIANNE MCQUEEN MR#: [id number] : 1945 Exam Date: 01/05/2024 Ordering Doctor: ARIELLA GALLEGO [facility] ECHOCARDIOGRAM REPORT PROCEDURE: CA ECHO DOPPLER COMPLETE INDICATIONS: Diastolic heart failure, dyspnea on exertion, CABG, HI,COPD, hypertension, diabetes COMPARISON: None. DESCRIPTION: COMPLETE ECHOCARDIOGRAM [...] CATINA HEARN Signed By:01/07/2433 DD/ 1 TD/TT: Tobacco Sorter: us Generic External Data Provider [facility] Final Result documented in this encounter Visit Diagnoses Not on filedocumented in this encounter Additional Health Concerns Assessment Noted Time PHQ-9 Depression Total Score: 3 12/14/19 24 4:34 PM EDT documented as of this encounter Care Teams Time Study Statistician Relationship Specialty Start Date End Date Mal Perez MD PCP - External PCP Family Medicine 04/24/23 Gilberto Stockton MD [address] [place] [address] PCP - Devoted 08/24/23 08/23/24 Gilberto Stockton MD [address] [place] [address] PCP - General Family Medicine 03/09/24 Gilberto Stockton MD [address] [place] [address] PCP - Medical [facility] 08/24/2408/23 Teressa Sierra NP [address] [place] [address] Nurse Practitioner Family Medicine 09/09/23 documented as of this encounter
--- OUTSIDE RECORDS SUMMARY | 2025-03-28 09:48 | XMS_ITS | Encounter Summary ---
Author Organization [facility] Address [address] [facility] [address] Care Team Providers Care Business Administration Professor Name Role Phone House, Mal Bolden MD Unavailable [phone] Gilberto Stockton MD Unavailable Teressa Sierra NP Unavailable [phone] Gilberto Stockton MD Primary Care Provider [phone] Gilberto Stockton MD Unavailable Encounter Details Date [...] Visit [facility] [address] [place] [address] Teressa Sierra, CUAUHTEMOC [address] [place] [address] 08/10/2025 1:00 PM EST Office Visit [facility] [place] [facility] [address] [place] [address] Brenna Dangelo PA [address] [place] [address] 12/25/2025 4:30 PM EDT Office Visit [facility] [address] [place] [address] Teressa Sierra NP [address] [place] [address] documented as of this encounter Procedures Procedure Name Priority Date/Time Associated Diagnosis Comments SEGMENTAL BLOOD PRESSURE 11/04/2023 3:13 PM EDT documented in this encounter Results * SEGMENTAL BLOOD PRESSURE (11/04/2023 3:13 PM EDT) Anatomical Region Laterality Modality Radiographic Aminta ging 11/04/2023 3:13 PM EDT Narrative 11/05/2023 7:02 [place] [address] Cardiology Report Signed Patient: ARIANNE MCQUEEN MR#: [id number] : 1945 Acct:[id number] Age/Sex: 78 / M ADM Date: 11/04/23 Loc: CARD Attending Dr: Wallace Henry D.P.M. Ordering Physician: Wallace Henry D.P.M. Date of Service: 11/04/23 Procedure(s): CA segmental UE or LE ANDI Accession Number(s): [id number] cc: Teressa Sierra POULTRY EVISCERATOR; Wallace Henry D.P.M. The [facility] Test Date: 2023-11-04 Pat Name: ARIANNE MCQUEEN Department: Room: - Gender: Male Pharmaceutical Worker: Genevieve Torres : 1945 Requested By: 2013 Order Number: [id number] Chris MD: NISHANT OSULLIVAN Interpretive Statements Biphasic [...] 11/05/23 0702 11/05/23 0702 DD/ 1513 TD/TT: Private Equity Analyst: Procedure Note Radiology, Radiologist, - 11/05/2023 [place] [address] Cardiology Report Signed Patient: ARIANNE MCQUEEN AMR#: [id number] : 1945cct:[id number] Age/Sex: 78 / MADM Date: 11/04/23 Loc: CARD Attending Dr: Wallace Henry D.P.M. Ordering Physician: Wallace Henry D.P.M. Date of Service: 11/04/23 Procedure(s): CA segmental UE or LE ANDI Accession Number(s): [id number] cc: Teressa Sierra POULTRY EVISCERATOR; Wallace Henry D.P.M. The [facility] Test Date: 2023-11-04 Pat Name: ARIANNE MCQUEEN Department: Room: - Gender: Male Pharmaceutical Worker: Genevieve Torres : 1945 Requested By: 2013 Order Number: [id number] Reading MD: NISHANT OSULLIVAN Interpretive Statements Biphasic [...] By:11/05/23 0702 11/05/23 0702 DD/ 1513 TD/TT: Private Equity Analyst: us Generic External Data Provider IMG XR PROCEDURES Final Result documented in this encounter Visit Diagnoses Not on filedocumented in this encounter Care Teams Business Administration Professor Relationship Specialty Start Date End Date Mal Perez MD PCP - External PCP Family Medicine 04/24/23 Gilberto Stockton MD [address] [place] [address] PCP - Devoted 08/24/23 08/23/24 Gilberto Stockton MD [address] [place] [address] PCP - General Family Medicine 03/09/24 Gilberto Stockton MD [address] [place] [address] PCP - Medical [facility] 08/24/2408/23 Teressa Sierra NP [address] [place] [address] Nurse Practitioner Family Medicine 09/09/23 documented as of this encounter
--- OUTSIDE RECORDS SUMMARY | 2025-03-28 09:48 | XMS_ITS | Encounter Summary ---
Author Organization [facility] Address [address] [place] [address] Care Team Providers Care Branch Specialist Name Role Phone House, Mal Bolden MD Unavailable [phone] Gilberto Stockton MD Unavailable Teressa Sierra NP Unavailable [phone] Gilberto Stockton MD Primary Care Provider [phone] Gilberto Stockton MD Unavailable Encounter Details Date [...] How often do you attend chur or confucianist services? Never 12/14/2023 Do you belong to any clubs o r organizations such as scientologist groups, unions, fraternal or athletic groups, or [...] 1 12/14/2023 [facility] - Occupational Stress Questionnaire Answer Date [...] place to sleep or slept in a jail (including now)? No 12/14/2023 Sex and Gender [...] Visit [facility] [address] [place] [address] Teressa Sierra NP [address] [place] [address] 08/10/2025 1:00 PM EST Office [facility] [address] [place] [address] Brenna Dangelo PA [address] [place] [address] 12/25/2025 4:30 PM EDT Office Visit [facility] [address] [place] [address] Teressa Sierra NP [address] [place] [address] documented as of this encounter Procedures Procedure Name Priority Date/Time Associated Diagnosis Comments NM LUIGI PERF SPECT REST STR 03/23/2024 2:57 PM EDT documented in this encounter Results * NM LUIGI PERF SPECT REST STR (03/23/2024 2:57 PM EDT) Anatomical Region Laterality Modality Other 03/23/2024 2:57 PM EDT Narrative 03/23/2024 2:58 [place] [address] Nuclear Medicine Report Signed Patient: ARIANNE MCQUEEN MR#: [id number] : 1945 Acct:[id number] Age/Sex: 78 / M ADM Date: 03/17/24 Loc: [place] Attending Dr: ARIELLA GALLEGO APRN Ordering Physician: ARIELLA GALLEGO APRN Date of Service: 03/17/24 Procedure(s): NM luigi perf SPECT rest str Accession Number(s): [id number] cc: Teressa Sierra CABLE SPLICER HELPER; ARIELLA GALLEGO APRN Patient Name: ARIANNE MCQUEEN MR#: [id number] : 1945 Exam Date: 03/17/2024 Ordering Doctor: ARIELLA GALLEGO FIXER SUPERVISOR RADIOLOGY REPORT PROCEDURE: NM LUIGI PERF [...] STUDY: Good. PERFUSION DEFECT: LOCATION: Apical anterior. [place]. SIZE: Small (1-2 segments). SEVERITY: Mild. TYPE: [...] Signed By: 03/23/24 1458 DD/ 56 TD/TT: Residential Energy Auditor: Procedure Note Radiology, Radiologist, - 03/23/2024 [place] [address] Nuclear Medicine Report Signed Patient: ARIANNE MCQUEEN AMR#: [id number] : 1945cct:[id number] Age/Sex: 78 / MADM Date: 03/17/24 Loc: [place] Attending Dr: ARIELLA GALLEGO APRN Ordering Physician: ARIELLA GALLEGO APRN Date of Service: 03/17/24 Procedure(s): NM luigi perf SPECT rest str Accession Number(s): [id number] cc: Teressa Sierra CABLE SPLICER HELPER; ARIELLA GALLEGO APRN Patient Name: ARIANNE MCQUEEN MR#: [id number] : 1945 Exam Date: 03/17/2024 Ordering Doctor: [...] STUDY: Good. PERFUSION DEFECT: LOCATION: Apical anterior. [place]. SIZE: Small (1-2 segments). SEVERITY: Mild. TYPE: [...] M.D. Signed By:03/23/24 1458 DD/ 1457 TD/TT: Residential Energy Auditor: us Generic External Data Provider [facility] Final Result documented in this encounter Visit Diagnoses Not on filedocumented in this encounter Additional Health Concerns Assessment Noted Time PHQ-9 Depression Total Score: 3 12/14/19 24 4:34 PM EDT documented as of this encounter Care Teams Branch Specialist Relationship Specialty Start Date End Date Mal Perez MD PCP - External PCP Family Medicine 04/24/23 Gilberto Stockton MD [address] [place] [address] PCP - Devoted 08/24/23 08/23/24 Gilberto Stockton MD [address] [place] [address] PCP - General Family Medicine 03/09/24 Gilberto Stockton MD [address] [place] [address] PCP - Medical [facility] 08/24/2408/23 Teressa Sierra NP [address] [place] [address] Nurse Practitioner Family Medicine 09/09/23 documented as of this encounter
--- OUTSIDE RECORDS SUMMARY | 2025-03-28 09:48 | XMS_ITS | Encounter Summary ---
Author Organization [facility] Address [address] [place] [address], [address] [place] [address] Care Team Providers Care Carpenter Mold Name Role Phone Unavailable Primary Care Provider Unavailabl e Reason for Visit * Reason Comments Medication Refill Encounter Details Date Type Department Care Team (Late st Contact Info) Description 07/19/2021 [facility] Primary Care [address] [facility] [place] [address] [place] [address] [facility] [place] [address] Medication Refill Social History Tobacco [...]
--- OUTSIDE RECORDS SUMMARY | 2025-03-28 09:48 | XMS_ITS | Encounter Summary ---
Author Organization [facility] Address [address] [place] [address] Care Team Providers Care Nurse Administrator Name Role Phone House, Mal Bolden MD Unavailable [phone] Gilberto Stockton MD Unavailable Teressa Sierra NP Unavailable [phone] Gilberto Stockton MD Primary Care Provider [phone] Gilberto Stockton MD Unavailable Encounter Details Date Type Department Care Team (Late st Contact Info) Description 01/08/2024 Orders Only [facility] [address] [facility] [address] [place] [address] Marianne Hernandez MD [address] [place], [place] [address] Social History Tobacco Use Types Packs/Day Years [...] How often do you attend chur or caodaism services? Never 12/14/2023 Do you belong to any clubs o r organizations such as christian groups, unions, fraternal or athletic groups, or [...] Recorded Patient Health Questionnaire-2 Score 1 12/14/2023 [facility] - Occupational [...] place to sleep or slept in a penitentiary (including now)? No 12/14/2023 Sex and Gender Information Value Date Recorded Sex Assigned at Not on file Legal Sex Male 7:08 PM EDT Gender Identity Not on file Sexual Orientation Not on file documented as of this encounter Plan of Treatment Upcoming Encounters Date Type Department Care Team (Late st Contact Info) Description 06/22/2025 2:00 PM EDT Office Visit [facility] [address] [place] [address] Teressa Sierra NP [address] [place] [address] 08/10/2025 1:00 PM EST Office [facility] [address] [place] [address] Brenna Dangelo PA [address] [place] [address] 12/25/2025 4:30 PM EDT Office Visit [facility] [address] [place] [address] Teressa Sierra, AIRCRAFT ORDNANCE SYSTEMS MECHANIC [address] [place] [address] documented as of this encounter Procedures Procedure Name Priority Date/Time Associated Diagnosis Comments ECHO TRANSTHORACIC W/ DOPPLER Routine 01/05/2024 9:40 AM EDT documented in this encounter Results * ECHO TRANSTHORACIC W/ DOPPLER (01/05/2024 9:40 AM EDT) Anatomical Region Laterality Modality Radiographic Aminta ging Marianne Hernandez MD IMG XR PROCEDURES Final Result documented in this encounter Visit Diagnoses Not on filedocumented in this encounter Additional Health Concerns Assessment Noted Time PHQ-9 Depression Total Score: 3 12/14/19 24 4:34 PM EDT documented as of this encounter Care Teams Nurse Administrator Relationship Specialty Start Date End Date Mal Perez MD PCP - External PCP Family Medicine 04/24/23 Gilberto Stockton MD [address] [place] [address] PCP - Devoted 08/24/23 08/23/24 Gilberto Stockton MD [address] [place] [address] PCP - General Family Medicine 03/09/24 Gilberto Stockton MD [address] [place] [address] PCP - Medical [facility] 08/24/2408/23 Teressa Sierra, CUAUHTEMOC [address] [place] [address] Nurse Practitioner Family Medicine 09/09/23 documented as of this encounter
--- OUTSIDE RECORDS SUMMARY | 2025-03-28 09:48 | XMS_ITS | Clinical Summary ---
Author Organization [employer] tem Address [id number] [address] [place] [address] Care Team Providers Care Cnc Supervisor Name Role Phone Mal Perez DO Primary Care Provider [phone] Allergies No known active allergies Medications ferrous [...] Pericardial effusion 08/29/2021 COVID-19 08/29/2021 Atherosclerosis of [place] co ronary artery of [place] heart without angina pectoris 08/29/2021 Immunizations No [...] 2:06 AM 09/03/2021 8:28 PM Care Teams Cnc Supervisor Relationship Specialty Start Date End Date Mal Perez DO PCP - General Family Medicine 08/24/21
--- OUTSIDE RECORDS SUMMARY | 2025-03-28 09:48 | XMS_ITS | Clinical Summary ---
Author Organization [facility] Address [address] [place] [address] Care Team Providers Care Candlemaking Laborer Name Role Phone House, Mal Bolden MD Unavailable [phone] Teressa Sierra NP Unavailable [phone] Gilberto Stockton MD Primary Care Provider [phone] Gilberto Stockton MD Unavailable Allergies No known [...] w/Device kit 1 each Daily Acti ve glucose blood (True Metrix Blood Glucose Test) test stripIndications: Type 2 diabetes mellitus without complications (HCC) USE DIRECTED to test BLOOD SUGAR DAILY 50 strip 6 10/04/19 25 Active furosemide (Lasix) 40 MG tablet Take 40 mg by mouth Daily 10/03/19 25 Active glipiZIDE (Glucotrol) 5 MG tabletIndications :Type 2 diabetes mellitus without complication, without long-term current use of insulin (HCC) Take 0.5 tablets (2.5 mg) by mouth Daily 45 tablet 1 03/15/20 25 2024 Active spironolactone (Aldactone) 25 MG tabletIndications :Localized edema Take 0.5 tablets (12.5 mg) by mouth Daily 45 tablet 1 03/15/20 25 2024 Active atorvastatin (Lipitor) 40 MG tabletIndications :Coronary artery disease involving tribe coronary artery of tribe heart without angina pectoris,Atherosc lerosis of tribe coronary artery of tribe heart without angina pectoris,Mixed hyperlipidemia Take 1 tablet (40 mg) by mouth at bedtime Take 40 mg by mouth at bedtime 90 tablet 03/21/202024 Active carvedilol (Coreg) 12.5 MG tabletIndications :Atherosclerotic heart disease of tribe coronary artery without angina pectoris Take 1 tablet (12.5 mg) by mouth in the morning and 1 tablet (12.5 mg) in the evening. Take with meals. 180 tablet 03/21/202024 Active Fluticasone-Umecl idin-Vilant (Trelegy Ellipta) 100-62.5-25 MCG/ACT aerosol powderIndications :Chronic obstructive pulmonary disease, unspecified COPD type ([facility]) 1 puff by Other route Daily Rinse mouth after use 60 each 3 03/21/20 25 2024 Active Trelegy Ellipta 100-62.5-25 MCG/ACT aerosol powder 1 puff by Other route Daily 12/24/19 24 2024 Discontinued(R eokoryer) glipiZIDE (Glucotrol) 5 MG tabletIndications :Type 2 diabetes mellitus without complication, without long-term current use of insulin (HCC) Take 0.5 tablets (2.5 mg) by mouth Daily 45 tablet 1 09/08/19 25 2024 Discontinued spironolactone (Aldactone) 25 MG tabletIndications :Localized edema Take 1 tablet (25 mg) by mouth Daily 90 tablet 1 09/11/19 25 2024 Discontinued atorvastatin (Lipitor) 40 MG tabletIndications :Atherosclerosis of tribe coronary artery of tribe heart without angina pectoris,Mixed hyperlipidemia,Co ronary artery disease involving tribe coronary artery of tribe heart without angina pectoris Take 1 tablet (40 mg) by mouth at bedtime Take 40 mg by mouth at bedtime 90 tablet 1 09/27/19 25 2024 Discontinued(R eorder) celecoxib (CeleBREX) 200 MG capsuleIndication s:Bilateral primary osteoarthritis of knee Take 1 capsule (200 mg) by mouth Daily 90 capsule 1 12/20/19 25 2024 carvedilol (Coreg) 12.5 MG tabletIndications :Atherosclerotic heart disease of tribe coronary artery without angina pectoris Take 1 tablet (12.5 mg) by mouth in the morning and 1 tablet (12.5 mg) in the evening. Take with meals. 180 tablet 1 12/20/192024 Discontinued(R eorder) Active Problems Problem Noted Date Diagnosed Date [...] Plan (09/27/2024 4:23 PM EST): He has [facility] Nurse comes out few times per week for dressing changes Also sees Giselle Drew at [facility] for mgmt of wound Type 2 diabetes mellitus wit h diabetic chronic kidney disease 09/05/2024 Assessment & Plan (03/21/2025 7:15 AM EDT): Check blood sugars daily, notify [...] jardiance A1c 5.9% 12/19/24 Assessment & Plan (12/19/2024 5:26 PM EDT): [...] this time Encounter for subsequent [facility] wellness visit (AWV) in Medicare patient [...] excess calories 0 09/09/2023 Assessment & Plan (03/21/2025 7:15 AM EDT): Discussed with patient their BMI (actual, verses recommended). We have also discussed lifestyle modifications: attempts to perform physical activity as chronic conditions allow, also to monitor dietary intake: increasing protein/fruits/veggies and lowering carb intake (unless contraindicated). Limit sodas, juices, and sugary drinks. Activity difficult d/t multiple co morbidities Assessment & Plan (12/19/2024 7:01 PM EDT): [...] morbidities Sleep apnea 09/08/2023 Assessment & Plan (03/21/2025 7:13 AM EDT): You have a diagnosis of obstructive sleep [...] in a year I did contact the [facility] Sleep lab ext [phone] to find out about scheduling the patient to see about an updated PAP machine: voicemail left at 16:20 on 09/27/24 Assessment & Plan (09/27/2024 4:20 PM EST): [...] in a year I did contact the [facility] Sleep lab ext [phone] to find out about scheduling the patient to see about an updated PAP machine: voicemail left at 16:20 on 09/27/24 Assessment & Plan (06/01/2024 4:58 PM EDT): Non compliant with PAP use, machine is broke , difficulty finding DME who takes his insurance I did leave a VM on Sleep [facility] regarding this for them to assist Assessment & Plan (12/14/2023 5:30 PM EDT): Follow with [facility] Sleep [facility] Dr Amado, no machine use for last 6 months, it is not working and he is waiting for a new machine Chronic obstructive pulmonary disease, unspecifi ed 09/08/2023 Assessment & Plan (03/21/2025 3:32 PM EDT): Current meds: trelegy inhaler and albuterol inhaler Follows with pulmonology Dr Riana Melchor 100 inhalers: #4 lot [id number], exp 03/18 Assessment & Plan (12/19/2024 7:40 AM EDT): Current meds: trelegy inhaler and albuterol inhaler Follows with pulmonology Dr Woodruff Assessment & Plan (09/27/2024 7:10 AM EST): Current meds: trelegy inhaler and albuterol inhaler Follows with pulmonology Dr Woodruff Assessment & Plan (06/01/2024 4:58 PM EDT): Continue with dr woodruff Needs a refill of gaurang , he needs to contact them Assessment & Plan (12/14/2023 5:31 PM EDT): Continue with dr woodruff 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 09/08/2023 Assessment & Plan (03/21/2025 7:14 AM EDT): Continue with [facility] Assessment & Plan (09/09/2023 4:09 PM EST): Continue with [facility] Myocardial infarction 09/08/2023 CAD (coronary artery disease) 09/08/2023 Assessment & Plan (03/21/2025 7:14 AM EDT): Continue current meds/dose Assessment & Plan (12/19/2024 7:41 AM EDT): [...] MELLITUS WITH DIABETIC CHRONIC KIDNEY DISEASE (HCC) ([facility]/HCC) WRITTEN ON 03/14/2024 7:17 PM BY TERESSA [...] lower extremity edema 09/08/2023 Assessment & Plan (03/21/2025 7:14 AM EDT): Continue spironolactone script Elevate legs as much as possible Limit sodium and wear compression stockings Assessment & Plan (09/27/2024 7:13 AM EST): Continue spironolactone script Elevate legs as much as possible Limit sodium and wear compression stockings Assessment & Plan (12/14/2023 5:33 PM EDT): Continue spironolactone script Essential hypertension 09/08/2023 Assessment & Plan (03/21/2025 7:14 AM EDT): Please check blood pressure daily and record DASH diet Limit caffeine Take medication as directed Contact office if chest pain, pressure, dizziness, shortness of breath, swelling legs Recommend slow position changes Current meds: amlodipine, carvedilol, aldactone Assessment & Plan (12/19/2024 7:41 AM EDT): [...] diastolic (congestive) heart failure Assessment & Plan (03/21/2025 7:19 AM EDT): Follows with [facility] Current meds: asa, statin, b fitz, imdur, aldactone, amlodipine ECHO 02/21/25: EF 74%, bilat atrial enlargement: right mild, left mod. No acute valve issues, mild elevated right sided pressures at 39 Assessment & Plan (09/27/2024 7:12 AM EST): Follows with [facility] Current meds: asa, statin, b fitz, imdur, aldactone, amlodipine Assessment & Plan (12/14/2023 5:32 PM EDT): Continue with cardiology Not able to afford the jardiance script Pericardial effusion ([facility]-HCC) 08/29/2021 Atherosclerosis of tribe co ronary artery of tribe heart without angina pectoris 08/29/2021 Assessment & Plan (09/27/2024 7:11 AM EST): Current meds: asa, statin, b fitz, imdur, aldactone, Cardiology: [facility] [place] Cough 07/03/2021 Other ventricular tachycardia 07/03/2021 Assessment [...] Encounters Date Type Department Care Team Description 03/21/2025 3:00 PM EDT Office Visit [facility] [address] [place] [address] Teressa Sierra NP Essential hypertension (Primary Dx); Obstructive sleep apnea syndrome; Chronic obstructive pulmonary disease, unspecified COPD type (HCC); Chronic diastolic (congestive) heart failure (HCC); Coronary artery disease involving tribe coronary artery of tribe heart without angina pectoris ; Bilateral lower extremity edema; Type 2 diabetes mellitus with stage 3 chronic kidney disease, without long-term current use of insulin, unspecified whether stage 3a or 3b CKD ([facility]); Morbid (severe) obesity due to excess calories ([facility]-HCC); MGUS (monoclonal gammopathy of unknown significance); Atherosclerosis of tribe coronary artery of tribe heart without angina pectoris ; Mixed hyperlipidemia ; Atherosclerotic heart disease of tribe coronary artery without angina pectoris 03/21/2025 Bamboo flowsheet [facility] [address] [place] [phone] Teressa Sierra NP 03/14/2025 Refill [facility] [address] [place] [phone] Teressa Sierra NP Type 2 diabetes mellitus without complication, without long-term current use of insulin ([facility]); Localized edema 02/21/2025 Clinisync Result Encounter [facility] External Department Unsolicited Provider, Generic External Data 02/21/2025 Clinisync Result Encounter [facility] External Department Unsolicited Provider, Generic External Data 02/13/2025 Results Follow-Up [facility] [address] [place] [phone] aYdi Malik MD 02/08/2025 1:00 PM EDT Office Visit [facility] [address] [place] [phone] Yadi Malik MD Neoplasm of unspecified behavior of bone, soft tissue, and skin (Primary Dx) 02/08/2025 Bamboo flowsheet [facility] [address] [place] [phone] Yadi Malik MD 02/08/2025 Travel 02/07/2025 Telephone [facility] [address] [place] [phone] Teressa Sierra NP 01/12/2025 Clinisync Result Encounter [facility] External Department Unsolicited Provider, Generic External Data 01/06/2025 Telephone [facility] [address] [place] [address] Génesis Donaldson LPN Results 01/03/2025 Results Follow-Up [facility] [address] [place] [address] Brenna Dangelo PA 12/30/2024 Clinisync Result Encounter [facility] External Department Unsolicited Provider, Generic External Data 12/28/2024 10:30 AM EDT Office Visit [facility] [address] [place] [address] Brenna Dangelo PA Epidermal inclusion cyst (Primary Dx); Neoplasm of unspecified behavior of bone, soft tissue, and skin 12/28/2024 Bamboo flowsheet [facility] [address] [place] [address] Brenna Dangelo PA 12/28/2024 Travel from Last 3 Months Family History Medical [...] often do you attend chur ch or yarsani services? Never 12/14/2023 Do you belong to [...] Recorded Patient Health Questionnaire-2 Score 0 12/19/2024 [facility] - Occupational Stress Questionnaire Answer Date [...] 3.2 oz) 03/21/2025 3:10 PM EDT Height 179.1 cm (5' 10.5 ) 09/27/2024 2:06 PM ES T Body Mass Index 46.28 09/27/2024 2:06 PM EST Plan of Treatment Upcoming Encounters Date Type Department Care Team (Late st Contact Info) Description 06/22/2025 2:00 PM EDT Office Visit [facility] [address] [place] [address] Teressa Sierra NP [address] [place] [phone] 08/10/2025 1:00 PM EST [facility] [address] [place] [address] Brenna Dangelo PA [address] [place] [address] 12/25/2025 4:30 PM EDT Office Visit [facility] [address] [place] [phone] Teressa Sierra, [facility] [address] [place] [phone] Health Maintenance Due Date Last Done Comments Pneumococcal Vaccine: 65+ Ye ars (1 of 2 - PCV) 1964 Diabetes: Urine Protein Screening 06/16/2025 024, 05/20/2023 Diabetes: Retinopathy Screening 08/24/2025 Diabetes: Hemoglobin A1C 09/21/2025 025, 12/19/2024, 06/16/2024, Additional history exists Medicare Annual Wellness (AWV) 12/19/2025 0 12/19/2024, 12/19/2024, 12/14/2023, Additional history exists Influenza Vaccine Discontinued Procedures Procedure Name Priority Date/Time Associated Diagnosis Comments POCT GLYCOSYLATED HEMOGLOBIN (HGB A1C) Routine 03/21/2025 3:28 PM EDT Type 2 diabetes mellitus with stage 3 chronic kidney disease, without long-term current use of insulin, unspecified whether stage 3a or 3b CKD (HCC) CA ECHO DOPPLER COMPLETE 025 2:40 PM [...] behavior of bone, soft tissue, and skin from Last 3 Months Results * (ABNORMAL) POCT glycosylated hemoglobin (Hb A1C) docked device (03/21/2025 3:28 PM EDT) Hemoglobin A1C 6.0 Blood Venous blood specimen / Unknown 03/21/2025 3:28 PM EDT Teressa Sierra NP POINT OF CARE TEST ENTER/EDIT O RDERABLES Final Result * CA ECHO DOPPLER COMPLETE (02/21/2025 2:40 PM EDT) Anatomical Region Laterality Modality Other 02/21/2025 2:40 PM EDT Narrative 02/21/2025 2:41 PM EDT [facility] [place] [id number] Cardiology Report Signed Patient: ARIANNE MCQUEEN MR#: [id number] : 1945 Acct:[id number] Age/Sex: 79 / M ADM Date: 02/21/25 Loc: CARD Attending Dr: CATINA SALAZAR Ordering Physician: CATINA SALAZAR Date of Service: 02/21/25 Procedure(s): CA echo doppler complete Accession Number(s): [id number] cc: Teressa Sierra NP; CATINA SALAZAR Patient Name: ARIANNE MCQUEEN MR#: [id number] : 1945 Exam Date: 02/21/2025 Ordering Doctor: DR CATINA SALAZAR M.D. ECHOCARDIOGRAM REPORT PROCEDURE: CA ECHO DOPPLER COMPLETE INDICATIONS: Chronic diastolic heart failure, h/o pericardial effusion, CABG, CT, COPD, hypertension, diabetes COMPARISON: None. DESCRIPTION: COMPLETE [...] Area (VTI): 4.57 cm2, 4.57 cm2 Deceleration Calhoun: Pressure Half-Time: Peak Velocity(Antegrade Flow): 0.89 m/s [...] Signed By: 02/21/25 1441 DD/ 1440 TD/TT: Radiotelephone Technical Operator: Procedure Note Radiology, Radiologist, - 02/21/2025 [facility] [place] [id number] Cardiology Report Signed Patient: ARIANNE MCQUEEN AMR#: [id number] : 4Acct:[id number] Age/Sex: 79 / MADM Date: 02/21/25 Loc: CARD Attending Dr: CATINA SALAZAR Ordering Physician: CATINA SALAZAR Date of Service: 02/21/25 Procedure(s): CA echo doppler complete Accession Number(s): [id number] cc: Teressa Sierra NP; CATINA SALAZAR Patient Name: ARIANNE MCQUEEN MR#: [id number] : 1945 Exam Date: 02/21/2025 Ordering Doctor: DR CATINA SALAZAR M.D. ECHOCARDIOGRAM REPORT PROCEDURE: CA ECHO DOPPLER COMPLETE INDICATIONS: Chronic diastolic heart failure, h/o pericardialeffusion, CABG, CT, COPD, hypertension, diabetes COMPARISON: None. DESCRIPTION: COMPLETE [...] Area (VTI): 4.57 cm2, 4.57 cm2 Deceleration Calhoun: Pressure Half-Time: Peak Velocity(Antegrade Flow): 0.89 m/s [...] Dictated By: Ann Walls M.D. Signed By:02/21/25 144 DD/ 144 TD/TT: Radiotelephone Technical Operator: us Generic External Data Provider [facility] [...] 0.70 - 1.30 mg/dL [facility] EGFR-AF RWANDAN 47(L) >=60 mL/min/1.7 3m 2 [facility] EGFR-NON AF RWANDAN 39(L) >=60 mL/min/1.7 3m 2 [facility] BUN CREATININE RATIO 22.9 [facility] CALCIUM 8.9 8.5 - 10.1 mg/dL [facility] 02/21/2025 12:2 6 PM EDT 02/21/2025 12:33 PM EDT Narrative [facility] - 02/21/2025 1:31 PM EDT Generic External Data Provider [facility] F inal Result [facility] * Skin repair (02/08/2025 1:04 [...] Skin excision (02/08/2025 1:04 PM EDT) Narrative Tonadeem HolleyKirsty LPN - 02/08/2025 1:04 PM EDT Lesion [...] 7.0 ml Estimated blood loss: 1.0 ml Yadi Malik MD DERM PROCEDURE ORDERABLES Fin al Result * Dermatopathology exam (02/08/2025 12:00 AM EDT) Only the most recent of2 resultswithin the time period is included. SPECIMEN TYPE --- SPECIMEN: RIGHT ANTERIOR NECK --- [facility] ICD10 Code C44.41 [facility] PROTOCOL EXC - EXCISION DARRELOR A DIAGNOSTICS Final Diagnosis SCAR AND WOUND REPAIR REACTION, EXCISED (SEE COMMENT). 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 This case is reviewed in conjunction with the accompanying prior biopsy as listed in the case history summary. [facility] Gross Text 0.2x0.2cm scar 0.4cm from margin 3 blocks, (tips in 1) (4 in 2) (3 in 3) (jg/kb) (02/10/25) [facility] Microscopic Description Microscopic examination performed. 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 Check Margins: Yes Previous accession number: [id number] us Yadi Malik MD LAB PATHOLOGY ORDERABLES Eboni antunez Result [facility] * ALL PRO BNP (12/30/2024 4:55 PM EDT) NT PRO B TYPE NATRIURETIC PEPT 464.0 <=1,800.0 pg/mL [facility] 12/30/2024 4:55 PM EDT 12/30/2024 4:56 PM EDT Narrative [facility] - 12/30/2024 6:05 PM EDT Generic External Data Provider [facility] F inal Result [facility] * Lesion biopsy (12/28/2024 10:52 [...] FISH DERM PROCEDURE ORDERABLES Eboni antunez Result from Last 3 [place] [address] [employer] Care Teams Candlemaking Laborer Relationship Specialty Start Date End Date Mal Perez MD PCP - External PCP Family Medicine 04/24/23 Gilberto Stockton MD [address] [place] [address] PCP - General Family Medicine 03/09/24 Gilberto Stockton MD [address] [place] [address] PCP - Medical [facility] 08/24/2408/23 Teressa Sierra NP [address] [place] [address] Nurse Practitioner Family Medicine 09/09/23
--- OUTSIDE RECORDS SUMMARY | 2025-03-28 09:48 | XMS_ITS | Encounter Summary ---
Author Organization [facility] Address [address] [facility] [place] [address] Care Team Providers Care Sausage Stuffer Name Role Phone House, Mal Bolden MD Unavailable [phone] Gilberto Stockton MD Unavailable Teressa Sierra HOOK LOADER Unavailable [phone] Gilberto Stockton MD Primary Care Provider [phone] Gilberto Stockton MD Unavailable Encounter Details Date Type Department Care Team (Late st Contact Info) Description 11/05/2023 Orders Only [facility] [address] [place] [phone] Teressa Sierra, HOOK LOADER [address] [place] [address] Social History Tobacco Use Types Packs/Day Years [...] 06/22/2025 2:00 PM EDT Office Visit [facility] [address] [place] [address] Teressa Sierra NP [address] [place] [phone] 08/10/2025 1:00 PM EST Office Visit [facility] [address] [place] [address] Brenna Dangelo PA [address] [place] [address] 12/25/2025 4:30 PM EDT Office Visit [facility] [address] [place] [address] Teressa Sierra NP [address] [place] [address] documented as of this encounter Procedures Procedure [...] on filedocumented in this encounter Care Teams Sausage Stuffer Relationship Specialty Start Date End Date Mal Perez MD PCP - External PCP Family Medicine 04/24/23 Gilberto Stockton MD [address] [place] [address] PCP - Devoted 08/24/23 08/23/24 Gilberto Stockton MD [address] [place] [address] PCP - General Family Medicine 03/09/24 Gilberto Stockton MD [address] [place] [address] PCP - Medical [facility] 08/24/2408/23 Teressa Sierra NP [address] [place] [address] Nurse Practitioner Family Medicine 09/09/23 documented as of this encounter
--- OUTSIDE RECORDS SUMMARY | 2025-03-28 09:48 | XMS_ITS | Patient Health Record ---
Author Organization [facility] in [place] Address [address] [place] [address] Care Team Providers Care Senior Center Manager Name Role Phone Teressa Sierra CNP Primary Care Provider Unavail able Wallace Mayers Unavailable [phone] Allergies No Known Allergies Reason For Referral [...] Problem Status W/U Status Risk Notes Problem 788695195 Morbid (severe) obesity due to excess calories (E66.01) Active confirmed Problem Chronic diastolic heart failure (950823798) Chronic diastolic (congestive) heart failure (I50.32) Active confirmed Problem Chronic ulcer of skin of lower leg (disorder) (3895561854124894 4) Non-pressure chronic ulcer of other part of left lower leg 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.821) Active confirmed Problem 102922291 Solitary pulmona ry nodule (R91.1) Active confirmed Problem 479471127 intermediate (current) use of inhaled steroids (Z79.51) Active confirmed Problem COPD - Chronic obstructive pulmonary disease (49035165) COPD (chronic obstructive pulmonary disease) (J44.9) Active confirmed Problem Obstructive sleep apnea syndrome (44961708) JOSUE (obstructive sleep apnea) (G47.33) Active confirmed Problem Benign essential hypertension (9203975) Benign essential hypertension (I10) Active confirmed Problem 434444681 History of tobac co abuse (Z87.891) Active confirmed 1ppd x 28 years, quit 2020 Problem Acquired lymphedema (57369399) Acquired lymphedema (I89.0) Active confirmed Problem Stasis dermatitis co-occurrent with venous ulcer of right lower extremity due to chronic peripheral venous hypertension (481034386317034) 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) Active confirmed Problem Atherosclerotic heart disease of stebbins coronary artery without angina pectoris (612893042186367) Coronary arteriosclerosis in stebbins artery (I25.10) Active confirmed CABG 04/08/2021 : WILKINS > LAD, SVG > Diagonal Problem Stasis edema wit h ulcer of both lower extremities (I87.313) Active confirmed Problem Secondary pulmonary hypertension (97685790) Other secondary pulmonary hypertension (I27.29) Active confirmed RHC 04/03/2021 : RV 48/5, PA 46/11 (28), PCWP 11 Problem Chronic ulcer of calf (7969054284908) Non-pressure chronic ulcer of right calf with other specified severity (L97.218) Active confirmed Problem Skin ulcer of le ft pretibial region with fat layer exposed (L97.822) Active confirmed Problem History of COVID-19 (2666165681513729 05) History of COVID-19 (Z86.16) Active confirmed Problem Pericardial effusion (531458182) Pericardial effusion (I31.39) Active confirmed Encounters Encounter Location Date Provider Diagnosis [facility] [place] [address] [place] [address] 06/02/2024 Wallace Riana COPD (chronic obstructive pulmonary disease) J44.9 [facility] [place] [address] [place] [address] 02/07/2025 Wallacecricket Mayers Assessments Encounter Date Diagnosis (ICD Code) Assessment Notes Treatment Notes Treatment Clinical Notes Section Notes 06/02/2024 COPD (chronic obstructive pulmonary disease) (ICD-10 - J44.9) Plan Of Treatment No Information Insurance Providers Payer Name Payer Address Payer Phone Subscriber Number Group Number Insured Name Patient Relationship to Insured Coverage Start Date Coverage End Date [facility] [address] [place] [phone] [id number] Shan Young Self - patient is the insured 4 4 MMO ADVANT[employer] CHO[employer] MEDICARE HMO [address] [place] [address] [phone] [id number] Shan Young Self - patient is the insured Medical (General) History Medical History History ICD Code Coronary arteriosclerosis in stebbins holden ry I25.10 Chronic diastolic (congestive) heart [...] sleep apnea) G47.33 Surgical History Surgery Date(Month/Year) Cardiac Catheterization 04/03/2021 CABG 04/08/2021 Cholecystectomy 08/06/2010 Arthroscopic knee surgery-Left 7 appendectomy left knee replacement right knee replacement Hospitalization History Reason Date(Month/Year) Sepsis/Pneumonia 08/18/2022
== END 2025-03-28 09:45 | disposition home or self-care (01) ==
LOC: WC 09:45
PROVIDERS: PCP Nurse Practitioner; Visit Provider Physician Assistant
DX: I87.313 Chronic venous hypertension (idiopathic) with ulcer of bilateral lower extremity (principal); L97.311 Non-pressure chronic ulcer of right ankle limited to breakdown of skin; L97.321 Non-pressure chronic ulcer of left ankle limited to breakdown of skin
CPT/HCPCS: 29580

== ENCOUNTER 2025-04-11 09:46 | Outpatient (OUT) | payer MEDICARE, SELFPAY ==
--- OUTSIDE RECORDS SUMMARY | 2025-04-11 09:50 | XMS_ITS | Clinical Summary ---
Author Organization [facility] Address [address] [place] [address] Care Team Providers Care Nut Roaster Name Role Phone House Sr., Mal LIU [...] Care Team Description 03/06/2025 Orders Only [facility] [address] [place] [address] Anya Thompson MD Chronic obstructive pulmonary disease, [...] N ot on file 08/01/2020 Data from: [email or web address] Last address used for calculation Not on [...] Upcoming Encounters Date Type Department Care Team (Latest Contact Info) Description 06/15/2025 10:15 AM EDT Procedure Pulmonary Lab [address] [place] [address] COPD 06/15/2025 10:45 AM EDT Procedure Pulmonary Lab [address] [place] [address] COPD 06/15/2025 11:00 AM EDT Office Visit Pulmonary Medicine [address] [place] [address] Santhosh Quintana MD [address] [place] [address] COPD 06/15/2025 1:00 PM EDT Office Visit [facility] Ophthal[facility] [address] [place] [address] Anya Thompson MD [address] [place] [address] Diagn[facility] [address] [address] Cataract Eval (referral scanned) Health Maintenance Due Date Last Done Comments [...] g/dL 04/04/2020 2:27 PM EDT [facility] Albumin 4.3 3.9 - 4.9 g/dL 04/04/2020 2:27 PM EDT [facility] Calcium 9.2 8.5 - 10.2 mg/dL 04/04/2020 2:27 PM EDT [facility] Bilirubin, Total 1.2 0.2 - 1.3 mg/dL 04/04/2020 2:27 PM EDT [facility] Alkaline Phosphatase 90 38 - 113 U/L 04/04/2020 2:27 PM EDT [facility] AST 15 14 - 40 U/L 04/04/2020 2:27 PM EDT [facility] Glucose 129(H) 74 - 99 mg/dL 04/04/2020 2:27 PM EDT [facility] Comment: The [place] Diabetes Association (ADA) provides guidance for cutoff [...] Standards of Medical Care in Diabetes 2016, [place] Diabetes Association. Diabetes Care. 2016.39(Suppl 1). BUN 15 9 - 24 mg/dL 04/04/2020 2:27 PM EDT [facility] Creatinine 0.76 0.73 - 1.22 mg/dL 04/04/2020 2:27 PM EDT [facility] Sodium 133(L) 136 - 144 mmol/L 04/04/2020 2:27 PM EDT [facility] Potassium 3.7 3.7 - 5.1 mmol/L 04/04/2020 2:27 PM EDT [facility] Chloride 96(L) 97 - 105 mmol/L 04/04/2020 2:27 PM EDT [facility] CO2 29 22 - 30 mmol/L 04/04/2020 2:27 PM EDT [facility] Anion Gap 8(L) 9 - 18 mmol/L 04/04/2020 2:27 PM EDT [facility] ALT 16 10 - 54 U/L 04/04/2020 2:27 PM T [facility] eGFR- >60 04/04/2020 2:27 PM [facility] eGFR-All Other Races >60 . 04/04/2020 2:27 PM T [facility] Comment: eGFR (Estimated GFR) Units of measure: [...] Sotelo MD LABORATORY Final Result [facility] [address] [place] [address] [facility] [address] [place], [place] from Last 3 Months or Most Recently Relevant to Health Maintenance Insurance [facility] [place] [facility] [place] Care Teams Nut Roaster Relationship Specialty Start Date End Date Mal Perez Sr., DO PCP - General Family Medicine 04/02/12
--- OUTSIDE RECORDS SUMMARY | 2025-04-11 09:50 | XMS_ITS | Encounter Summary ---
Author Organization [facility] Address [address] [facility] [place] [address] Care Team Providers Care Farm Implement Mechanic Name Role Phone House, Mal Bolden MD Unavailable [phone] Gilberto Stok[place]on MD Unavailable Teressa Sierra NP Unavailable [phone] Gilberto [place] MD Primary Care Provider [phone] Gilberto [place] MD Unavailable Encounter Details Date [...] Visit [facility] [address] [place] [address] Teressa Sierra, CUAUHTEMOC [address] [place] [address] 08/10/2025 1:00 PM EST Office Visit [facility] [place] [facility] [address] [place] [address] Brenna Dangelo PA [address] [place] [address] 12/25/2025 4:30 PM EDT Office Visit [facility] [address] [place] [address] Teressa Sierra NP [address] [place] [address] documented as of this encounter Procedures Procedure Name Priority Date/Time Associated Diagnosis Comments SEGMENTAL BLOOD PRESSURE 11/04/2023 3:13 PM EDT documented in this encounter Results * SEGMENTAL BLOOD PRESSURE (11/04/2023 3:13 PM EDT) Anatomical Region Laterality Modality Radiographic Aminta ging 11/04/2023 3:13 PM EDT Narrative 11/05/2023 7:02 [place] [address] Cardiology Report Signed Patient: ARIANNE MCQUEEN MR#: [id number] : 1945 Acct:[id number] Age/Sex: 78 / M ADM Date: 11/04/23 Loc: CARD Attending Dr: Wallace Henry D.P.M. Ordering Physician: Wallace Henry D.P.M. Date of Service: 11/04/23 Procedure(s): CA segmental UE or LE ANDI Accession Number(s): [id number] cc: Teressa Sierra HOME HEALTH CARE PROVIDER; Wallace Henry D.P.M. [facility] Test Date: 2023-11-04 Pat Name: ARIANNE MCQUEEN Department: Room: - Gender: Male Clay Dry Press Mixer Operator: Genevieve Torres : 1945 Requested By: 2013 Order Number: [id number] Chris MD: NISHANT OSULLIVAN Interpretive Statements Biphasic [...] 11/05/23 0702 11/05/23 0702 DD/ 1513 TD/TT: Flake Miller Helper: Procedure Note Radiology, Radiologist, - 11/05/2023 [place] [address] Cardiology Report Signed Patient: ARIANNE MCQUEEN AMR#: [id number] : 1945cct:[id number] Age/Sex: 78 / MADM Date: 11/04/23 Loc: CARD Attending Dr: Wallace Henry D.P.M. Ordering Physician: Wallace Henry D.P.M. Date of Service: 11/04/23 Procedure(s): CA segmental UE or LE ANDI Accession Number(s): [id number] cc: Teressa Sierra HOME HEALTH CARE PROVIDER; Wallace Henry D.P.M. [facility] Test Date: 2023-11-04 Pat Name: ARIANNE MCQUEEN Department: Room: - Gender: Male Clay Dry Press Mixer Operator: Genevieve Torres : 1945 Requested By: 2013 Order Number: [id number] Reading MD: NISHANT OSULLIVAN Interpretive Statements Biphasic [...] By:11/05/23 0702 11/05/23 0702 DD/ 1513 TD/TT: Flake Miller Helper: us Generic External Data Provider IMG XR PROCEDURES Final Result documented in this encounter Visit Diagnoses Not on filedocumented in this encounter Care Teams Farm Implement Mechanic Relationship Specialty Start Date End Date Mal Perez MD PCP - External PCP Family Medicine 04/24/23 Gilberto [place] MD [address] [place] [address] PCP - [facility] 08/24/23 08/23/24 Gilberto [place] MD [address] [place] [address] PCP - General Family Medicine 03/09/24 Gilberto [place] MD [address] [place] [address] PCP - Medical [facility] 08/24/2408/23 Teressa Sierra NP [address] [place] [address] Nurse Practitioner Family Medicine 09/09/23 documented as of this encounter
--- OUTSIDE RECORDS SUMMARY | 2025-04-11 09:50 | XMS_ITS | Encounter Summary ---
Author Organization [facility] Address [address] [place] [address], [address] [place] [address] Care Team Providers Care Screen Maker Name Role Phone Unavailable Primary Care Provider Unavailabl e Reason for Visit * Reason Comments Medication Refill Encounter Details Date Type Department Care Team (Late st Contact Info) Description 07/19/2021 [facility] Primary Care [address] [facility] [place] [address] [place] [address] [facility] [place] [address] Medication Refill Social History Tobacco [...]
--- OUTSIDE RECORDS SUMMARY | 2025-04-11 09:50 | XMS_ITS | Encounter Summary ---
Author Organization [facility] Address [address] [place] [address] Care Team Providers Care Ad Writer Name Role Phone House, Mal Bolden MD Unavailable [phone] Gilberto [place] MD Unavailable Teressa Sierra NP Unavailable [phone] Gilberto [place] MD Primary Care Provider [phone] Giblerto [place] MD Unavailable Encounter Details Date Type [...] How often do you attend chur or methodist services? Never 12/14/2023 Do you belong to [...] Recorded Patient Health Questionnaire-2 Score 1 12/14/2023 [facility] - Occupational Stress Questionnaire Answer [...] place to sleep or slept in a fdc (including now)? No 12/14/2023 Sex and Gender [...] Visit [facility] [address] [place] [address] Teressa Sierra NP [address] [place] [address] 08/10/2025 1:00 PM EST Office [facility] [address] [place] [address] Brenna Dangelo PA [address] [place] [address] 12/25/2025 4:30 PM EDT Office Visit [facility] [address] [place] [address] Teressa Sierra NP [address] [place] [address] documented as of this encounter Procedures Procedure Name Priority Date/Time Associated Diagnosis Comments CA ECHO DOPPLER COMPLETE 01/07/2024 8:32 AM EDT documented in this encounter Results * CA ECHO DOPPLER COMPLETE (01/07/2024 8:32 AM EDT) Anatomical Region Laterality Modality Other 01/07/2024 8:32 AM EDT Narrative 01/07/2024 8:33 [place] [address] Cardiology Report Signed Patient: ARIANNE MCQUEEN MR#: [id number] : 1945 Acct:[id number] Age/Sex: 78 / M ADM Date: 01/05/24 Loc: CARD Attending Dr: ARIELLA GALLEGO APRN Ordering Physician: ARIELLA GALLEGO APRN Date of Service: 01/05/24 Procedure(s): CA echo doppler complete Accession Number(s): [id number] cc: Teressa Sierra REGIONAL BUSINESS DEVELOPMENT MANAGER; ARIELLA GALLEGO APRN Patient Name: ARIANNE MCQUEEN MR#: [id number] : 1945 Exam Date: 01/05/2024 Ordering Doctor: ARIELLA GALLEGO CNP ECHOCARDIOGRAM REPORT PROCEDURE: CA ECHO DOPPLER COMPLETE INDICATIONS: Diastolic heart failure, dyspnea on exertion, CABG, KS, COPD, hypertension, diabetes COMPARISON: None. DESCRIPTION: COMPLETE [...] HEARN Signed By: 01/07/2433 DD/ 1 TD/TT: Shop Lead: Procedure Note Radiology, Radiologist, MD - 01/07/2024 [place] [address] Cardiology Report Signed Patient: ARIANNE MCQUEEN AMR#: [id number] : 1945cct:[id number] Age/Sex: 78 / MADM Date: 01/05/24 Loc: CARD Attending Dr: ARIELLA GALLEGO APRN Ordering Physician: ARIELLA GALLEGO APRN Date of Service: 01/05/24 Procedure(s): CA echo doppler complete Accession Number(s): [id number] cc: Teressa Sierra REGIONAL BUSINESS DEVELOPMENT MANAGER; ARIELLA GALLEGO APRN Patient Name: ARIANNE MCQUEEN MR#: [id number] : 1945 Exam Date: 01/05/2024 Ordering Doctor: ARIELLA GALLEGO [facility] ECHOCARDIOGRAM REPORT PROCEDURE: CA ECHO DOPPLER COMPLETE INDICATIONS: Diastolic heart failure, dyspnea on exertion, CABG, KS,COPD, hypertension, diabetes COMPARISON: None. DESCRIPTION: COMPLETE ECHOCARDIOGRAM [...] CATINA HEARN Signed By:01/07/2433 DD/ 1 TD/TT: Shop Lead: us Generic External Data Provider [facility] Final Result documented in this encounter Visit Diagnoses Not on filedocumented in this encounter Additional Health Concerns Assessment Noted Time PHQ-9 Depression Total Score: 3 12/14/19 24 4:34 PM EDT documented as of this encounter Care Teams Ad Writer Relationship Specialty Start Date End Date Mal Perez MD PCP - External PCP Family Medicine 04/24/23 Gilberto [place] MD [address] [place] [address] PCP - [facility] 08/24/23 08/23/24 Gilberto [place] MD [address] [place] [address] PCP - General Family Medicine 03/09/24 Gilberto [place] MD [address] [place] [address] PCP - Medical [facility] 08/24/2408/23 Teressa Sierra NP [address] [place] [address] Nurse Practitioner Family Medicine 09/09/23 documented as of this encounter
--- OUTSIDE RECORDS SUMMARY | 2025-04-11 09:50 | XMS_ITS | Encounter Summary ---
Author Organization [facility] Address [address] [facility] [place] [address] Care Team Providers Care Director Of Reimbursement Name Role Phone House, Mal Bolden MD Unavailable [phone] Gilberto [place] MD Unavailable Teressa Sierra NP Unavailable [phone] Gilberto [place] MD Primary Care Provider [phone] Gilberto [place] MD Unavailable Encounter Details Date Type Department Care Team (Late st Contact Info) Description 09/07/2023 Abstract [facility] [address] [place] [address] Teressa Sierra, WIRELESS CELLULAR TECHNICIAN [address] [place] [address] Social History Tobacco Use Types Packs/Day Years [...] [facility] [address] [place] [address] Teressa Sierra, CUAUHTEMOC [address] [place] [address] 08/10/2025 1:00 PM EST Office Visit [facility] [place] [facility] [address] [place] [address] Brenna Dangelo PA [address] [place] [address] 12/25/2025 4:30 PM EDT [facility] [address] [place] [address] Teressa Sierra, WIRELESS CELLULAR TECHNICIAN [address] [place] [address] documented as of this encounter Visit Diagnoses Not on filedocumented in this encounter Care Teams Director Of Reimbursement Relationship Specialty Start Date End Date Mal Perez MD PCP - External PCP Family Medicine 04/24/23 Gilberto [place] MD [address] [place] [address] PCP - [facility] 08/24/23 08/23/24 Gilberto [place] MD [address] [place] [address] PCP - General Family Medicine 03/09/24 Gilberto [place] MD [address] [place] [address] PCP - Medical [facility] 08/24/2408/23 Teressa Sierra NP [address] [place] [address] Nurse Practitioner Family Medicine 09/09/23 documented as of this encounter
--- OUTSIDE RECORDS SUMMARY | 2025-04-11 09:50 | XMS_ITS | Encounter Summary ---
Author Organization [facility] Address [address] [place] [address] Care Team Providers Care Well Surveying Engineer Name Role Phone House, Mal Bolden MD Unavailable [phone] Gilberto [place] MD Unavailable Teressa Sierra NP Unavailable [phone] Gilberto [place] MD Primary Care Provider [phone] Gilberto [place] MD Unavailable Encounter Details Date [...] How often do you attend chur or hoahaoism services? Never 12/14/2023 Do you belong to [...] Recorded Patient Health Questionnaire-2 Score 1 12/14/2023 [facility] - Occupational Stress Questionnaire Answer Date [...] place to sleep or slept in a senior living (including now)? No 12/14/2023 Sex and Gender [...] Visit [facility] [address] [place] [address] Teressa Sierra NP [address] [place] [address] 08/10/2025 1:00 PM EST Office [facility] [address] [place] [address] Brenna Dangelo PA [address] [place] [address] 12/25/2025 4:30 PM EDT Office Visit [facility] [address] [place] [address] Teressa Sierra NP [address] [place] [address] documented as of this encounter Procedures Procedure Name Priority Date/Time Associated Diagnosis Comments NM LUIGI PERF SPECT REST STR 03/23/2024 2:57 PM EDT documented in this encounter Results * NM LUIGI PERF SPECT REST STR (03/23/2024 2:57 PM EDT) Anatomical Region Laterality Modality Other 03/23/2024 2:57 PM EDT Narrative 03/23/2024 2:58 [place] [address] Nuclear Medicine Report Signed Patient: ARIANNE MCQUEEN MR#: [id number] : 1945 Acct:[id number] Age/Sex: 78 / M ADM Date: 03/17/24 Loc: NM Attending Dr: ARIELLA GALLEGO APRN Ordering Physician: ARIELLA GALLEGO APRN Date of Service: 03/17/24 Procedure(s): NM luigi perf SPECT rest str Accession Number(s): [id number] cc: Teressa Sierra TRANSMISSION AND PROTECTION ENGINEER; ARIELLA GALLEGO APRN Patient Name: ARIANNE MCQUEEN MR#: [id number] : 1945 Exam Date: 03/17/2024 Ordering Doctor: ARIELLA GALLEGO BILL [facility] RADIOLOGY REPORT PROCEDURE: NM LUIGI PERF SPECT [...] STUDY: Good. PERFUSION DEFECT: LOCATION: Apical anterior. Spring. SIZE: Small (1-2 segments). SEVERITY: Mild. TYPE: [...] Signed By: 03/23/24 1458 DD/ 56 TD/TT: Popcorn Attendant: Procedure Note Radiology, Radiologist, - 03/23/2024 [place] [address] Nuclear Medicine Report Signed Patient: ARIANNE MCQUEEN AMR#: [id number] : 1945cct:[id number] Age/Sex: 78 / MADM Date: 03/17/24 Loc: NM Attending Dr: ARIELLA GALLEGO APRN Ordering Physician: ARIELLA GALLEGO APRN Date of Service: 03/17/24 Procedure(s): NM luigi perf SPECT rest str Accession Number(s): [id number] cc: Teressa Sierra TRANSMISSION AND PROTECTION ENGINEER; ARIELLA GALLEGO APRN Patient Name: ARIANNE MCQUEEN MR#: [id number] : 1945 Exam Date: 03/17/2024 Ordering Doctor: [...] STUDY: Good. PERFUSION DEFECT: LOCATION: Apical anterior. Spring. SIZE: Small (1-2 segments). SEVERITY: Mild. TYPE: [...] M.D. Signed By:03/23/24 1458 DD/ 1457 TD/TT: Popcorn Attendant: us Generic External Data Provider [facility] Final Result documented in this encounter Visit Diagnoses Not on filedocumented in this encounter Additional Health Concerns Assessment Noted Time PHQ-9 Depression Total Score: 3 12/14/19 24 4:34 PM EDT documented as of this encounter Care Teams Well Surveying Engineer Relationship Specialty Start Date End Date Mal Perez MD PCP - External PCP Family Medicine 04/24/23 Gilberto [place] MD [address] [place] [address] PCP - [facility] 08/24/23 08/23/24 Gilberto [place] MD [address] [place] [address] PCP - General Family Medicine 03/09/24 Gilberto [place] MD [address] [place] [address] PCP - Medical [place] [facility] 08/24/2408/23 Teressa Sierra NP [address] [place] [address] Nurse Practitioner Family Medicine 09/09/23 documented as of this encounter
--- OUTSIDE RECORDS SUMMARY | 2025-04-11 09:50 | XMS_ITS | Encounter Summary ---
Author Organization [facility] Address [address] [place] [address] Care Team Providers Care Sack Maker Name Role Phone House, Mal Bolden MD Unavailable Gilberto Stockton MD Unavailable Teressa Sierra NP Unavailable [phone] Gilberto Stockton MD Primary Care Provider [phone] Gilberto Stockton MD Unavailable Reason for Visit * Reason Comments Med Refill Encounter Details Date Type Department Care Team (Late st Contact Info) Description 12/24/2023 [facility] [address] [place] [address] Teressa Sierra, CUAUHTEMOC [address] [place] [address] Social History Tobacco Use Types Packs/Day Years [...] often do you attend chur ch or hinduism services? Never 12/14/2023 Do you belong to any clubs o r organizations such as denominational groups, unions, fraternal or athletic groups, or [...] Recorded Patient Health Questionnaire-2 Score 1 12/14/2023 [facility] of Occupat ional Health - Occupational Stress [...] Office Visit [facility] [address] [place] [address] Teressa Sierra NP [address] [place] [address] 08/10/2025 1:00 PM EST Office Visit [facility] [address] [place] [address] Brenna Dangelo PA [address] [place] [address] 12/25/2025 4:30 PM EDT Office Visit [facility] [address] [place] [address] Teressa Sierra, CUAUHTEMOC [address] [place] [address] documented as of this encounter Visit Diagnoses Not on filedocumented in this encounter Additional Health Concerns Assessment Noted Time PHQ-9 Depression Total Score: 3 12/14/19 24 4:34 PM EDT documented as of this encounter Care Teams Sack Maker Relationship Specialty Start Date End Date Mal Perez MD PCP - External PCP Family Medicine 04/24/23 Gilberto Stockton MD [address] [place] [address] PCP - Devoted 08/24/23 08/23/24 Gilberto Stockton MD [address] [place] [address] PCP - General Family Medicine 03/09/24 Gilberto Stockton MD [address] [place] [address] PCP - Medical [facility] 08/24/2408/23 Teressa Sierra, CUAUHTEMOC [address] [place] [address] Nurse Practitioner Family Medicine 09/09/23 documented as of this encounter
--- OUTSIDE RECORDS SUMMARY | 2025-04-11 09:50 | XMS_ITS | Encounter Summary ---
Author Organization [facility] Address [address] [facility] [place] [address] Care Team Providers Care Warehouse Stocker Name Role Phone House, Mal Bolden MD Unavailable [phone] Gilberto Stockton MD Unavailable Teressa Sierra SAMPLE SEWER Unavailable [phone] Gilberto Stockton MD Primary Care Provider Gilberto Stockton MD Unavailable Encounter Details Date Type Department Care Team (Late st Contact Info) Description 11/05/2023 Orders Only [facility] [address] [place] [address] Teressa Sierra, SAMPLE SEWER [address] [place] [address] Social History Tobacco Use Types Packs/Day Years [...] 06/22/2025 2:00 PM EDT Office Visit [facility] [address] [place] [address] Teressa Sierra NP [address] [place] [address] 08/10/2025 1:00 PM EST Office Visit [facility] [address] [place] [address] Brenna Dangelo PA [address] [place] [address] 12/25/2025 4:30 PM EDT Office Visit [facility] [address] [place] [address] Teressa Sierra NP [address] [...] on filedocumented in this encounter Care Teams Warehouse Stocker Relationship Specialty Start Date End Date Mal Perez MD PCP - External PCP Family Medicine 04/24/23 Gilberto Stockton MD [address] [place] [address] PCP - Devoted 08/24/23 08/23/24 Gilberto Stockton MD [address] [place] [address] PCP - General Family Medicine 03/09/24 Gilberto Stockton MD [address] [place] [address] PCP - Medical [facility] 08/24/2408/23 Teressa Sierra NP [address] [place] [address] Nurse Practitioner Family Medicine 09/09/23 documented as of this encounter
--- OUTSIDE RECORDS SUMMARY | 2025-04-11 09:50 | XMS_ITS | Encounter Summary ---
Author Organization [facility] Address [address] [place] [address] Care Team Providers Care Spine Nurse Name Role Phone House, Mal Bolden MD Unavailable [phone] Gilberto Stockton MD Unavailable Teressa Sierra NP Unavailable [phone] Gilberto Stockton MD Primary Care Provider [phone] Gilberto Stockton MD Unavailable Encounter Details Date Type Department Care Team (Late st Contact Info) Description 01/08/2024 Orders Only [facility] [address] [facility] [address] [place] [address] Marianne Hernandez MD [address], [place] [phone] Social History Tobacco Use Types Packs/Day Years [...] How often do you attend chur or restorationist services? Never 12/14/2023 Do you belong to any clubs o r organizations such as episcopalian groups, unions, fraternal or athletic groups, or [...] Recorded Patient Health Questionnaire-2 Score 1 12/14/2023 [facility] of Occupat ional Health [...] place to sleep or slept in a fci (including now)? No 12/14/2023 Sex and Gender [...] Visit [facility] [address] [place] [address] Teressa Sierra NP [address] [place] [address] 08/10/2025 1:00 PM EST Office Visit [facility] [address] [place] [address] Brenna Dangelo PA [address] [place] [address] 12/25/2025 4:30 PM EDT Office Visit [facility] [address] [place] [address] Teressa Sierra, WINDOW AND SIDING CRAFTSMAN [address] [place] [address] documented as of this encounter Procedures Procedure [...] documented as of this encounter Care Teams Spine Nurse Relationship Specialty Start Date End Date Mal Perez MD PCP - External PCP Family Medicine 04/24/23 Gilberto Stockton MD [address] [place] [address] PCP - Devoted 08/24/23 08/23/24 Gilberto Stockton MD [address] [place] [address] PCP - General Family Medicine 03/09/24 Gilberto Stockton MD [address] [place] [address] PCP - Medical [facility] 08/24/2408/23 Teressa Sierra, CUAUHTEMOC [address] [place] [address] Nurse Practitioner Family Medicine 09/09/23 documented as of this encounter
--- OUTSIDE RECORDS SUMMARY | 2025-04-11 09:50 | XMS_ITS | Encounter Summary ---
Author Organization [employer] [employer] Address [id number] [address] [place] [address] Care Team Providers Care Classroom Teacher Name Role Phone Mal Perez DO Primary Care Provider [phone] Encounter Details Date Type Department Care Team (Late st Contact Info) Description 08/29/2021 Orders Only [facility] [address] [place] [phone] Transcribe, Orders Support User Pain (Primary [...] documented as of this encounter Care Teams Classroom Teacher Relationship Specialty Start Date End Date Mal Perez DO PCP - General Family Medicine 08/24/21 documented as of this encounter
--- OUTSIDE RECORDS SUMMARY | 2025-04-11 09:51 | XMS_ITS | Clinical Summary ---
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 Take with meals. 180 tablet 03/21/202024 Active Fluticasone-Umecl idin-Vilant (Trelegy Ellipta) 100-62.5-25 MCG/ACT aerosol powderIndications :Chronic obstructive pulmonary disease, unspecified COPD type ([facility]) 1 puff by Other route Daily Rinse [...] atorvastatin (Lipitor) 40 MG tabletIndications :Atherosclerosis of grayling coronary artery of grayling heart without angina pectoris,Mixed hyperlipidemia,Co ronary artery disease involving grayling coronary artery of grayling heart without angina pectoris Take 1 tablet (40 mg) by mouth at bedtime Take 40 mg by mouth at bedtime 90 tablet 1 09/27/19 25 2024 Discontinued(R eorder) celecoxib (CeleBREX) 200 MG capsuleIndication s:Bilateral primary osteoarthritis of knee Take 1 capsule (200 mg) by mouth Daily 90 capsule 1 12/20/19 25 2024 carvedilol (Coreg) 12.5 MG tabletIndications :Atherosclerotic heart disease of grayling coronary artery without angina pectoris Take 1 [...] Plan (09/27/2024 4:23 PM EST): He has [facility] Nurse comes out few times per week for dressing changes Also sees Giselle Drew at [facility] for mgmt of wound Type 2 [...] at this time Encounter for subsequent [facility]ris [facility] wellness visit (AWV) in Medicare patient 12/14/2023 [...] in a year I did contact the [facility] Sleep lab ext [phone] to find out about scheduling the patient [...] in a year I did contact the [facility] Sleep lab ext [phone] to find out about scheduling the patient to see about an updated PAP machine: voicemail left at 16:20 on 09/27/24 Assessment & Plan (06/01/2024 4:58 PM EDT): Non compliant with PAP use, machine is broke , difficulty finding DME who takes his insurance I did leave a VM on Sleep lab [facility] regarding this for them to assist Assessment & Plan (12/14/2023 5:30 PM EDT): Follow with [facility] Sleep Lab Dr Amado, no machine [...] MELLITUS WITH DIABETIC CHRONIC KIDNEY DISEASE (HCC) ([facility]) WRITTEN ON 03/14/2024 7:17 PM BY [...] Plan (03/21/2025 7:19 AM EDT): Follows with [facility] Current [...] to afford the jardiance script Pericardial effusion ([facility]) 08/29/2021 Atherosclerosis of grayling co ronary artery of grayling heart without angina pectoris 08/29/2021 Assessment & Plan (09/27/2024 7:11 AM EST): Current meds: asa, statin, b fitz, imdur, aldactone, Cardiology: [facility] Pat Cough 07/03/2021 Other [...] Office Visit [facility] [address] [place] [address] Teressa Sierra NP Essential hypertension (Primary Dx); Obstructive sleep apnea syndrome; Chronic obstructive pulmonary disease, unspecified COPD type (HCC); Chronic diastolic (congestive) heart failure (HCC); 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 ; Bilateral lower extremity edema; Type 2 diabetes mellitus with stage 3 chronic kidney disease, without long-term current use of insulin, unspecified whether stage 3a or 3b CKD ([facility]); Morbid (severe) obesity due to excess calories ([facility]); MGUS (monoclonal gammopathy of unknown significance); Atherosclerosis of grayling coronary artery of grayling heart without angina pectoris ; Mixed hyperlipidemia ; Atherosclerotic heart disease of grayling coronary artery without angina pectoris 03/21/2025 Bamboo flowsheet [facility] [address] [place] [address] Teressa Sierra NP 03/14/2025 Refill [facility] [address] [place] [address] Teressa Sierra NP Type 2 diabetes mellitus without complication, without long-term current use of insulin ([facility]); Localized edema 02/21/2025 Clinisync Result Encounter NOMS External Department Unsolicited Provider, Generic External Data 02/21/2025 Clinisync Result Encounter NOMS External Department Unsolicited Provider, Generic External Data 02/13/2025 Results Follow-Up [facility] [place] [facility] [address] [place] [address] Yadi Malik MD Dermatopathology exam 02/08/2025 1:00 PM EDT Office Visit [facility] [address] [place] [address] Yadi Malik MD Neoplasm of unspecified behavior of bone, soft tissue, and skin (Primary Dx) 02/08/2025 Bamboo flowsheet [facility] [place] [facility] [address] [place] [address] Yadi Malik MD 02/08/2025 Travel 02/07/2025 Telephone [facility] [address] [place] [address] Teressa Sierra NP 01/12/2025 Clinisync Result Encounter [facility]OM[facility] External Department Unsolicited Provider, Generic External Data from Last 3 Months Family History Medical [...] any clubs o r organizations such as baptism groups, unions, fraternal [...] Recorded Patient Health Questionnaire-2 Score 0 12/19/2024 [facility] of Occupat ional Health [...] Office Visit [facility] [address] [place] [address] Teressa Sierra, CUAUHTEMOC [address] [place] [address] 08/10/2025 1:00 PM EST Office Visit [facility] [address] [place] [address] Brenna Dangelo PA [address] [place] [address] 12/25/2025 4:30 PM EDT Office Visit [facility] [address] [place] [address] Teressa Sierra, STITCHDOWN TOE FORMER [address] [place] [address] Health Maintenance Due Date Last Done Comments [...] METABOLIC PANEL Routine 01/12/2025 9:23 AM EDT from Last 3 Months Results * (ABNORMAL) POCT glycosylated hemoglobin (Hb A1C) docked device (03/21/2025 3:28 PM EDT) Hemoglobin A1C 6.0 Blood Venous blood specimen / Unknown 03/21/2025 3:28 PM EDT us Teressa Aichholz STITCHDOWN TOE FORMER POINT OF CARE TEST ENTER/EDIT O RDERABLES Final Result * CA ECHO DOPPLER COMPLETE (02/21/2025 2:40 PM EDT) Anatomical Region Laterality Modality Other 02/21/2025 2:40 PM EDT Narrative 02/21/2025 2:41 [place] [address] Cardiology Report Signed Patient: ARIANNE MCQUEEN MR#: [id number] : 1945 Acct:[id number] Age/Sex: 79 / M ADM Date: 02/21/25 Loc: CARD Attending Dr: CATINA SALAZAR Ordering Physician: CATINA SALAZAR Date of Service: 02/21/25 Procedure(s): CA echo doppler complete Accession Number(s): [id number] cc: Teressa Sierra STITCHDOWN TOE FORMER; CATINA SALAZAR Patient Name: ARIANNE MCQUEEN MR#: [id number] : 1945 Exam Date: 02/21/2025 Ordering Doctor: DR CATINA SALAZAR M.D. ECHOCARDIOGRAM REPORT PROCEDURE: CA ECHO DOPPLER COMPLETE INDICATIONS: Chronic diastolic heart failure, h/o pericardial effusion, CABG, ME, COPD, hypertension, diabetes COMPARISON: None. DESCRIPTION: COMPLETE [...] Area (VTI): 4.57 cm2, 4.57 cm2 Deceleration Tripp: Pressure Half-Time: Peak Velocity(Antegrade Flow): 0.89 m/s [...] Signed By: 02/21/25 1441 DD/ 1440 TD/TT: Assembly Machine Tender: Procedure Note Radiology, Radiologist, - 02/21/2025 [place] [address] Cardiology Report Signed Patient: ARIANNE MCQUEEN AMR#: [id number] : 1945cct:[id number] Age/Sex: 79 / MADM Date: 02/21/25 Loc: CARD Attending Dr: CATINA SALAZAR Ordering Physician: CATINA SALAZRA Date of Service: 02/21/25 Procedure(s): CA echo doppler complete Accession Number(s): [id number] cc: Teressa Sierra NP; CATINA SALAZAR Patient Name: ARIANNE MCQUEEN MR#: [id number] : 1945 Exam Date: 02/21/2025 Ordering Doctor: DR CATINA SALAZAR M.D. ECHOCARDIOGRAM REPORT PROCEDURE: CA ECHO DOPPLER COMPLETE INDICATIONS: Chronic diastolic heart failure, h/o pericardialeffusion, CABG, ME, COPD, hypertension, diabetes COMPARISON: None. DESCRIPTION: COMPLETE [...] Area (VTI): 4.57 cm2, 4.57 cm2 Deceleration Tripp: Pressure Half-Time: Peak Velocity(Antegrade Flow): 0.89 m/s [...] M.D. Signed By:02/21/25 1441 DD/ 1440 TD/TT: Assembly Machine Tender: us Generic External Data Provider [facility] Final Result * (ABNORMAL) ALL BASIC METABOLIC PANEL (02/21/2025 12:26 PM EDT) Only the most recent of2 resultswithin the time period is included. SODIUM [...] 0.70 - 1.30 mg/dL TBH TBH EGFR-AF [place] 47(L) >=60 mL/min/1.7 3m 2 TBH TBH EGFR-NON AF [place] 39(L) >=60 mL/min/1.7 3m 2 TB[facility] BUN CREATININE RATIO 22.9 TBH CALCIUM 8.9 8.5 - 10.1 mg/dL [facility] 02/21/2025 12:2 6 PM EDT 02/21/2025 12:33 PM EDT Narrative EVA - 02/21/2025 1:31 PM EDT Generic External Data Provider EVA Marx inal Result [facility] * Skin repair (02/08/2025 1:04 PM EDT) [...] Microscopic examination performed. 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 Previous accession number: [id number] us Yadi Malik MD LAB PATHOLOGY ORDERABLES Eboni antunez Result [facility] from Last 3 Months Insurance [employer] Care Teams Digital Associate Media Director Relationship Specialty Start Date End Date Mal Perez MD PCP - External PCP Family Medicine 04/24/23 Gilberto Stockton MD [address] [place] [address] PCP - General Family Medicine 03/09/24 Gilberto Stockton MD [address] [place] [address] PCP - Medical [facility] 08/24/2408/23 Teressa Sierra NP [address] [place] [address] Nurse Practitioner Family Medicine 09/09/23
--- OUTSIDE RECORDS SUMMARY | 2025-04-11 09:51 | XMS_ITS | Encounter Summary ---
Author Organization [facility] Address [address] [place] [address] Care Team Providers Care Campaign Management Specialist Name Role Phone House, Mal Bolden MD Unavailable Gilberto Stockton MD Unavailable Teressa Sierra DATABASE ADMINISTRATOR Unavailable [phone] Gilberto Stockton MD Primary Care Provider Gilberto Stockton MD Unavailable Encounter Details Date Type Department Care Team (Late st Contact Info) Description 02/19/2023 Abstract [facility] [address] [phone] [place] Alcantara MD [address] [address] Social History Tobacco Use Types [...] Office Visit [facility] [address] [place] [address] Teressa Sierra NP [address] [place] [address] 08/10/2025 1:00 PM EST Office Visit [facility] [address] [place] [address] Brenna Dangelo PA [address] [place] [address] 12/25/2025 4:30 PM EDT Office Visit [facility] [address] [place] [address] Teressa Sierra, CUAUHTEMOC [address] [place] [address] documented as of this encounter Visit Diagnoses Not on filedocumented in this encounter Care Teams Campaign Management Specialist Relationship Specialty Start Date End Date Mal Perez MD PCP - External PCP Family Medicine 04/24/23 Gilberto Stockton MD [address] [place] [address] PCP - Devoted 08/24/23 08/23/24 Gilberto Stockton MD [address] [place] [address] PCP - General Family Medicine 03/09/24 Gilberto Stockton MD [address] [place] [address] PCP - Medical [facility] 08/24/2408/23 Teressa Sierra NP [address] [place] [address] Nurse Practitioner Family Medicine 09/09/23 documented as of this encounter
--- OUTSIDE RECORDS SUMMARY | 2025-04-11 09:51 | XMS_ITS | Encounter Summary ---
Author Organization [facility] Address [address] [place] [address] Care Team Providers Care Floor Helper Name Role Phone House, Mal Bolden MD Unavailable Gilberto Stockton MD Unavailable Teressa Sierra GARMENT FOLDER Unavailable [phone] Gilberto Stockton MD Primary Care Provider [phone] Gilberto Stockton MD Unavailable Encounter Details Date Type Department Care Team (Late st Contact Info) Description 03/18/2023 Abstract [facility] [address] [phone] [place] Alcantara MD [address] [address] Social History Tobacco Use Types [...] Office Visit [facility] [address] [place] [address] Teressa Sierra NP [address] [place] [address] 08/10/2025 1:00 PM EST Office Visit [facility] [address] [place] [address] Brenna Dangelo PA [address] [place] [address] 12/25/2025 4:30 PM EDT Office Visit [facility] [address] [place] [address] Teressa Sierra, CUAUHTEMOC [address] [place] [address] documented as of this encounter Visit Diagnoses Not on filedocumented in this encounter Care Teams Floor Helper Relationship Specialty Start Date End Date Mal Perez MD PCP - External PCP Family Medicine 04/24/23 Gilberto Stockton MD [address] [place] [address] PCP - Devoted 08/24/23 08/23/24 Gilberto Stockton MD [address] [place] [address] PCP - General Family Medicine 03/09/24 Gilberto Stockton MD [address] [place] [address] PCP - Medical [facility] 08/24/2408/23 Teressa Sierra NP [address] [place] [address] Nurse Practitioner Family Medicine 09/09/23 documented as of this encounter
--- OUTSIDE RECORDS SUMMARY | 2025-04-11 09:51 | XMS_ITS | Encounter Summary ---
Author Organization [facility] Address [address] [place] [address] Care Team Providers Care Furnace Operator Name Role Phone House, Mal Bolden MD Unavailable [phone] Teressa Sierra NP Unavailable [phone] Gilberto Stockton MD Primary Care Provider [phone] Gilberto Stockton MD Unavailable Encounter Details Date Type Department Care Team (Latest Contact Info) Description 01/03/2025 Results Follow-Up [facility] [address] [place] [facility] [address] [place] [address] Brenna Dangelo PA [address] [facility] [address] [place] [address] Dermatopathology exam Social History Tobacco Use Types Packs/Day Years [...] How often do you attend chur or gnosticist services? Never 12/14/2023 Do you belong to any clubs o r organizations such as voodoo groups, unions, fraternal or athletic groups, or [...] Recorded Patient Health Questionnaire-2 Score 0 12/19/2024 [facility] of Occupat ional Health - [...] Office Visit [facility] [address] [place] [address] Teressa Sierra NP [address] [place] [address] 08/10/2025 1:00 PM EST Office Visit [facility] [address] [place] [address] Brenna Dangelo PA [address] [place] [address] 12/25/2025 4:30 PM EDT Office Visit [facility] [address] [place] [address] Teressa Sierra, CUAUHTEMOC [address] [place] [address] documented as of this encounter Visit Diagnoses Not on filedocumented in this encounter Additional Health Concerns Assessment Noted Time PHQ-9 Depression Total Score: 2 12/20/19 25 5:02 PM EDT documented as of this encounter Care Teams Furnace Operator Relationship Specialty Start Date End Date Mal Perez MD PCP - External PCP Family Medicine 04/24/23 Gilberto Stockton MD [address] [place] [address] PCP - General Family Medicine 03/09/24 Gilberto Stockton MD [address] [place] [address] PCP - Medical [facility] 08/24/2408/23 Teressa Sierra NP [address] [place] [address] Nurse Practitioner Family Medicine 09/09/23 documented as of this encounter
--- OUTSIDE RECORDS SUMMARY | 2025-04-11 09:51 | XMS_ITS | Clinical Summary ---
Author Organization [facility] tem Address [id number] [address] [place] [address] Care Team Providers Care Internet Technology Manager Name Role Phone Mal Perez DO Primary Care Provider [phone] Allergies No known active allergies Medications ferrous [...] Pericardial effusion 08/29/2021 COVID-19 08/29/2021 Atherosclerosis of [place] co ronary artery of [place] heart without angina pectoris 08/29/2021 Immunizations No [...] 2:06 AM 09/03/2021 8:28 PM Care Teams Internet Technology Manager Relationship Specialty Start Date End Date Mal Perez DO PCP - General Family Medicine 08/24/21
--- OUTSIDE RECORDS SUMMARY | 2025-04-11 09:51 | XMS_ITS | Encounter Summary ---
Author Organization [facility] Address [address] [place] [address] Care Team Providers Care Mounter Smoking Pipe Name Role Phone House, Mal Bolden MD Unavailable [phone] Gilberto Stockton MD Unavailable Teressa Sierra BACTERIOLOGIST INDUSTRIAL Unavailable [phone] Gilberto Stockton MD Primary Care Provider [phone] Gilberto Stockton MD Unavailable Encounter Details Date Type Department Care Team (Late st Contact Info) Description 03/04/2023 Abstract [facility] [address] [id number] [place] Alcantara MD [address] [address] Social History Tobacco Use Types [...] Office Visit [facility] [address] [place] [phone] Teressa Sierra NP [address] [place] [address] 08/10/2025 1:00 PM EST Office [facility] [address] [place] [address] Brenna Dangelo PA [address] [place] [address] 12/25/2025 4:30 PM EDT Office Visit [facility] [address] [place] [address] Teressa Sierra, CU[place]HTEMOC [address] [place] [address] documented as of this encounter Visit Diagnoses Not on filedocumented in this encounter Care Teams Mounter Smoking Pipe Relationship Specialty Start Date End Date Mal Perez MD PCP - External PCP Family Medicine 04/24/23 Gilberto Stockton MD [address] [place] [phone] PCP - [facility] 08/24/23 08/23/24 Gilberto Stockton MD [address] [place] [address] PCP - General Family Medicine 03/09/24 Gilberto Stockton MD [address] [place] [address] PCP - Medical [facility] 08/24/2408/23 Teressa Sierra NP [address] [place] [address] Nurse Practitioner Family Medicine 09/09/23 documented as of this encounter
--- OUTSIDE RECORDS SUMMARY | 2025-04-11 09:51 | XMS_ITS | Encounter Summary ---
Author Organization [facility] Address [address] [place] [address] Care Team Providers Care Truck Rental Clerk Name Role Phone House, Mal Bolden MD Unavailable [phone] Teressa Sierra NP Unavailable [phone] Gilberto Stockton MD Primary Care Provider [phone] Gilberto Stockton MD Unavailable Reason for Visit * Reason Comments Med Refill Encounter Details Date Type Department Care Team (Late st Contact Info) Description 03/14/2025 Refill [facility] [address] [place] [address] Teressa Sierra, MEDIA CENTER SPECIALIST [address] [place] [address] Type 2 diabetes mellitus without complication, without [...] often do you attend chur ch or scientologist services? Never 12/14/2023 Do you belong to any clubs o r organizations such as amish groups, unions, fraternal or athletic groups, or [...] Patient Health Questionnaire-2 Score 0 12/19/2024 [facility] [...] place to sleep or slept in a half-way (including now)? No 12/14/2023 Sex and Gender [...] [facility] [address] [place] [address] Teressa Sierra NP [address] [place] [phone] 08/10/2025 1:00 PM EST Office Visit [facility] [address] [place] [address] Brenna Dangelo PA [address] [place] [address] 12/25/2025 4:30 PM EDT Office Visit [facility] [address] [place] [address] Teressa Sierra, [place] [address] [place] [address] documented as of this encounter Visit Diagnoses Diagnosis Type 2 diabetes mellitus without complication, without long-term current use of insulin (HCC) Localized edema Edema documented in this encounter Additional Health Concerns Assessment Noted Time PHQ-9 Depression Total Score: 2 12/20/19 25 5:02 PM EDT documented as of this encounter Care Teams Truck Rental Clerk Relationship Specialty Start Date End Date Mal Perez MD PCP - External PCP Family Medicine 04/24/23 Gilberto Stockton MD [address] [place] [address] PCP - General Family Medicine 03/09/24 Gilberto Stockton MD [address] [place] [address] PCP - Medical [facility] 08/24/2408/23 Teressa Sierra NP [address] [place] [address] Nurse Practitioner Family Medicine 09/09/23 documented as of this encounter
--- OUTSIDE RECORDS SUMMARY | 2025-04-11 09:51 | XMS_ITS | Clinical Summary ---
Author Organization [facility] Address [address] [place] [address], [address] [place] [address] Care Team Providers Care Oracle Security Consultant Name Role Phone Unavailable Primary Care Provider Unavailabl e Social History Tobacco Use Types Packs/Day Years Used Date Smoking Tobacco: Never Assessed Sex and Gender Information Value Date Recorded Sex Assigned at Not on file Legal Sex Male 7:40 PM EDT Gender Identity Not on file Sexual Orientation Not on file Plan of Treatment Not on file Insurance [facility]
--- OUTSIDE RECORDS SUMMARY | 2025-04-11 09:51 | XMS_ITS | Encounter Summary ---
Author Organization [facility] Address [address] [place] [address] Care Team Providers Care Preventive Medicine Physician Name Role Phone House, Mal Bolden MD Unavailable [phone] Teressa Sierra NP Unavailable [phone] Gilberto Stockton MD Primary Care Provider [phone] Gilberto Stockton MD Unavailable Encounter Details Date Type Department Care Team (Latest Contact Info) Description 02/13/2025 Results Follow-Up [facility] [address] [facility] [address] [place] [phone] Yadi Malik MD [address] [facility] [address] [place] [address] Dermatopathology exam Social History Tobacco Use Types [...] How often do you attend chur or denominational services? Never 12/14/2023 Do you belong to [...] Patient Health Questionnaire-2 Score 0 12/19/2024 [facility] - Occupational Stress Questionnaire Answer Date [...] Office Visit [facility] [address] [place] [address] Teressa Sierra NP [address] [place] [address] 08/10/2025 1:00 PM EST Office Visit [facility] [address] [place] [address] Brenna Dangelo PA [address] [place] [address] 12/25/2025 4:30 PM EDT Office Visit [facility] [address] [place] [address] Teressa Sierra, [place] [address] [place] [address] documented as of this encounter Visit Diagnoses Not on filedocumented in this encounter Additional Health Concerns Assessment Noted Time PHQ-9 Depression Total Score: 2 12/20/19 25 5:02 PM EDT documented as of this encounter Care Teams Preventive Medicine Physician Relationship Specialty Start Date End Date Mal Perez MD PCP - External PCP Family Medicine 04/24/23 Gilberto Stockton MD [address] [place] [phone] PCP - General Family Medicine 03/09/24 Gilberto Stockton MD [address] [place] [address] PCP - Medical [facility] 08/24/2408/23 Teressa Sierra NP [address] [place] [address] Nurse Practitioner Family Medicine 09/09/23 documented as of this encounter
== END 2025-04-11 09:47 | disposition home or self-care (01) ==
LOC: WC 09:47
PROVIDERS: PCP Nurse Practitioner; Visit Provider Physician Assistant
DX: R60.1 Generalized edema (principal); R60.9 Edema, unspecified; L97.311 Non-pressure chronic ulcer of right ankle limited to breakdown of skin; L97.321 Non-pressure chronic ulcer of left ankle limited to breakdown of skin; I87.313 Chronic venous hypertension (idiopathic) with ulcer of bilateral lower extremity
CPT/HCPCS: G0463

== ENCOUNTER 2025-05-02 09:46 | Outpatient (OUT) | payer MEDICARE, SELFPAY ==
--- OUTSIDE RECORDS SUMMARY | 2025-05-02 10:01 | XMS_ITS | CCD ---
Author Organization [facility] Care Team Providers Care Bed Maker Name Role Phone MAL BARNES Primary Care Unavailable PAY, ROBIN Referring Unavailable MASROOR, GUDELIA Admitting Unavailable MASROOR, GUDELIA Attending Unavailable AKANKSHA UP Surgeon Unavailable [place] Procedure Practitioner Unavailab le VT Procedure Practitioner Unavailab le MOLLY, GUDELIA Surgeon [...] Admitting Unavailable HOUSE, DR MENEZES Attending Unavailable [place], DR MENEZES Primary Care Unavailable MOLLY, DR MENEZES Consulting Unavailable ROBIN, DR NOREEN Oneill Consulting Unavailable MOUKARBEL, DR DOMINIQUE Admitting Unavailable MOUKARBEL, DR DOMINIQUE Attending Unavailable HOUSE, DR MENEZES Primary Care Unavailable MOUKARBEL, DR DOMINIQUE Consulting Unavailable MOUKARBEL, DR DOMINIQUE Admitting Unavailable MOUKARBEL, DR DOMINIQUE Attending Unavailable [place], DR MENEZES Primary Care Unavailable [place], DR JOHANA Alvarado Consulting Unavailable MOUKARBEL, DR DOMINIQUE Consulting Unavailable MOUKARBEL, DR DOMINIQUE Admitting Unavailable MARTIN, DR DOMINIQUE Attending Unavailable MOLLY, DR MENEZES Primary Care Unavailable MARTIN, DR DOMINIQUE Consulting Unavailable Molly, Mal Primary Care Unavailable Lisha Ortega Attending Unavailable Lisha Ortega Admitting Unavailable Mal Barnes MD Unavailable [phone] Kath TRAVIS, Gilberto Unavailable Mariela ORE ROASTER, Teressa Unavailable Gilberto Stockton MD Primary Care Provider [phone] Gilberto Stockton MD Unavailable Gilberto Stockton MD Unavailable CATINA HEARN Attending Unavailable MARTIN, CATINA Attending Unavailable ARIELLA GALLEGO Attending Unavailable Mal Barnes MD Unavailable [phone] AICHHOLZ TERESSA Attending Unavailable AICHHOLZAMELIAA Attending Unavailable AICHHOLZAMELIAA Attending Unavailable ТАТЬЯНА DANGELO Attending Unavailable AICHHOLZ TERESSA Referring Unavailable ADARSH MALIK Attending Unavailable AICHHOLZAMELIAA Attending Unavailable Medications Current Medications Medication Drug Class(es) Dates Sig (Normalized) Sig (Original) [id number] 200 actuat albuterol 0.09 mg/actuat metered dose [...] Chew 81 mg in the morning. Active Blood Glucose Monitoring Suppl (True Metrix Air Glucose Meter) w/Device kit (20 sources) Blood Glucose Monitoring Suppl (True Metrix Air Glucose Meter) w/Device kit 1 each Daily Active Blood Glucose Monitoring Suppl (True Metrix Go Glucose Meter) w/Device kit (20 sources) Blood Glucose Monitoring Suppl (True Metrix Go Glucose Meter) w/Device kit Active celecoxib 200 mg oral capsule (20 sources) Nonsteroidal Anti-inflammatory Drug Start: End: take 1 capsule by mouth once daily celecoxib (CeleBREX) 200 MG capsule Indications: Bilateral primary osteoarthritis of knee Take 1 capsule (200 mg) by mouth Daily 90 capsule 1 12/19/2024 03/21/2025 Active Start: 03-23-2024 End: 09-15-2024 take 1 [...] sources) Anticholinergic, Corticosteroid, beta2-Adrenergic Agonist Start: 12-24-2023 End: 04-20-2025 take 1 puff(s) by mouth once daily Fluticasone-Umecl idin-Vilant (Trelegy Ellipta) 100-62.5-25 MCG/ACT aerosol powder Indications: Chronic obstructive pulmonary disease, unspecified COPD type (HCC) 1 puff by Other route Daily Rinse mouth after use 60 each 3 03/21/2025 04/20/2025 Active furosemide 40 mg oral tablet (18 sources) Loop Diuretic Start: 10-03-2024 take 1 tablet by mouth once daily furosemide (Lasix) 40 MG tablet Take 40 mg by mouth Daily 10/03/2024 Active take 1 tablet by donato th every twenty-four hours Furosemide 40 MG 1 tablet Orally Once a day Active glipiZIDE 5 mg oral tablet (20 sources) Sulfonylurea Start: 03-15-2025 End: 06-13-2025 take 0.5 tablet by mouth once daily glipiZIDE (Glucotrol) 5 MG tablet Indications: Type 2 diabetes mellitus without complication, without long-term current use of insulin (HCC) Take 0.5 tablets (2.5 mg) by mouth Daily 45 tablet 1 03/15/2025 06/13/2025 Active Start: 03-25-2024 End: 12-07-2024 take 0.5 tablet [...] oral tablet (20 sources) Aldosterone Antagonist Start: End: take 0.5 tablet by mouth once daily spironolactone (Aldactone) 25 MG tablet Indications: Localized edema Take 0.5 tablets (12.5 mg) by mouth Daily 45 tablet 1 03/15/2025 06/13/2025 Active Start: 09-11-2024 End: 12-10-2024 take 1 tablet by mouth once daily spironolactone (Aldactone) 25 MG tablet Indications: Localized edema Take 1 tablet (25 mg) by mouth Daily 90 tablet 1 09/11/2024 Active Start: 12-25-2023 take 1 tablet by donato once daily spironolactone (Aldactone) 25 MG tablet Indications: Localized edema Take 1 tablet (25 mg) by mouth Daily 90 tablet 1 12/25/2023 Active TraZODone & Diet Manage Prod (TRAZAMINE PO) (20 sources) TraZODone & Diet Manage Prod (TRAZAMINE PO) Take 50 mg by mouth Active Completed/Discontinued Medications Medication Drug Class(es) Dates Sig (Normalized) Sig (Original) atorvastatin 40 mg oral tablet (20 sources) HMG-CoA Reductase Inhibitor Start: 06-13-2024 End: 06-19-2025 take 1 tablet by mouth at bedtime atorvastatin (Lipitor) 40 MG tablet Indications: Atherosclerosis of [place] coronary artery of [place] heart without angina pectoris , Mixed hyperlipidemia , 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 Take 1 tablet (40 mg) by mouth at bedtime Take 40 mg by mouth at bedtime 90 tablet 1 09/27/2024 03/21/2025 Discontinued (Reorder) carvedilol 12.5 mg oral tablet (20 sources) alpha-Adrenergic Fitz, beta-Adrenergic Fitz Start: 12-25-2023 End: 06-19-2025 take 1 tablet by mouth in the morning carvedilol (Coreg) 12.5 MG tablet Indications: 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 Take 1 tablet (12.5 mg) by mouth in the morning and 1 tablet (12.5 mg) in the evening. Take with meals. 180 tablet 1 12/19/2024 03/21/2025 Discontinued (Reorder) Ibuprofen (1 source) Nonsteroidal Anti-inflammatory Drug Ibuprofen [...] ; Translations: [Chronic kidney disease, stage 3a ([facility])] Onset: 03-14-2024 Resolved: 09-05-2024 03-14-2024 Chronic Chronic kidney disease (2 sources) Chronic kidney disease; Translations: [Chronic kidney disease, stage 3b] Onset: 01-23-2025 Chronic obstructive pulmonary disease and bronchiectasis (20 [...] disease (20 sources) 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; Translations: [Atherosclerotic heart disease of [place] coronary artery with other forms of angina [...] Onset: 2022 Chronic Other aftercare (1 source) intermediate (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; Translations: [[employer] GRINDER CURRENT USE OF ASPIRIN] Onset: 08-29-2022 Episodic Other aftercare (1 source) intermediate (current) use of 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/antip latelets; Translations: [CUSTODIAL ANTITHROMBOT/ANTIPLAT LETS] Onset: 08-29-2022 Episodic Other aftercare (1 source) Other nursing home (current) drug therapy; Translations: [OTH CUSTODIAL CURRENT DRUG THERAPY] Onset: 08-29-2022 Episodic Other aftercare (1 source) intermediate (current) use of oral hypoglycemic drugs; Translations: [CUSTODIAL USE ORAL HYPOGLYCEMIC DX] Onset: 08-29-2022 Episodic [...] diseases of veins and lymphatics (20 sources) Bilateral lower limb edema; Translations: [Chronic venous hypertension (idiopathic) with ulcer of bilateral lower extremity] Onset: 09-27-2024 09-27-2024 Chronic Other diseases of veins and lymphatics (20 sources) Stasis dermatitis and venous ulcer of [...] Onset: 09-08-2023 09-08-2023 Chronic Residual codes; unclassified (6 sources) Obstructive sleep apnea syndrome; Translations: [Obstructive sleep apnea (adult) (pediatric)] 06-01-2024 Chronic Residual codes; unclassified (1 source) Edema, unspecified; Translations: [EDEMA UNSPECIFIED] Onset: 08-29-2022 Episodic Residual codes; unclassified (1 source) Family history of ischemic heart disease and other diseases of the circulatory system; Translations: [FAM HX ISCHEMIC HRT DZ OTH DZ CIRC] Onset: 08-29-2022 Episodic Residual codes; unclassified (20 sources) Bilateral lower limb edema; Translations: [Localized edema] Onset: 09-08-2023 09-08-2023 Episodic Respiratory failure; insufficiency; arrest (adult) (1 [...] Mood disorders Onset: 12-14-2023 Resolved: 12-19-2024 12-14-2023 Neoplasms of unspecified nature or uncertain behavior (20 sources) Neoplastic disease of uncertain behavior; Translations: [Neoplasm of uncertain behavior, unspecified] Onset: 12-19-2024 12-19-2024 Episodic Nutritional deficiencies (20 sources) Iron deficiency; Translations: [...] 12-14-2023 Episodic Residual codes; unclassified (20 sources) Edema; Translations: [Edema, unspecified] Onset: 07-03-2021 Resolved: 06-01-2024 12-14-2023 Episodic Residual codes; unclassified (2 sources) Localized edema; Translations: [Localized edema] Onset: 10-03-2024 09-10-2024 Episodic Residual codes; unclassified (1 source) Localized edema; Translations: [Localized edema] Onset: 10-03-2024 Episodic Syncope (20 sources) Syncope and collapse; Translations: [Syncope and collapse] Onset: 03-20-2021 12-14-2023 Episodic Unclassified (1 source) Other pericardial effusion (noninflammatory); Translations: [Other pericardial effusion (noninflammatory)] Onset: 01-23-2025 Varicose veins of lower extremity (20 sources) Varicose veins of lower extremity; Translations: [Varicose veins of bilateral lower extremities with pain] Onset: 09-08-2023 Resolved: 09-27-2024 09-08-2023 Episodic Results Test Name Value Interpretation Reference Range Facility HbA1c (Bld) [Mass fraction]o n 03-21-2025 Interpretation and review of laboratory results Abnormal [facility] - Hematology and Cell countson 03-21-2025 HbA1c (Bld) [Mass fraction] 6 % [facility] 36on 02-28-2025 36 Regarding labs resul ts and echo from 02/21/2025: MD Katty Tan MA His echo and blood testing show stable cardiac and renal function. Continue same treatment and follow up in 6 months. Spoke with patient and informed him of result. He verbalized understanding. Normal [facility] ALL BASIC METABOLIC PANELon 02-21-2025 Anion gap [Moles/Vol] 11.9 mmol/L [facility] Calcium [Mass/Vol] 8.9 mg/dL 8.5 - 10. 1 mg/dL [facility] Chloride [Moles/Vol] 98 mmol/L 98 - 10 7 mmol/L [facility] CO2 [Moles/Vol] 28.9 mmol/L 21.0 - 32.0 mmol/L [facility] Creatinine [Mass/Vol] 1.7 mg/dL High 0.70 - 1.30 mg/dL [facility] GFR/1.73 sq M.predicted CKD-EPI (S/P/Bld) [Vol rate/Area] 47 Low >=60 mL/min/1.73m 2 [facility] Glucose [Mass/Vol] 141 mg/dL High 74 - 106 mg/dL [facility] Interpretation and review of laboratory results Abnormal [facility] Potassium [Moles/Vol] 4.8 mmol/L 3.5 - 5.1 mmol/L [facility] Sodium [Moles/Vol] 134 mmol/L Low 136 - 145 mmol/L [facility] TBH EGFR-NON AF [place] 39 Low >=60 mL/min/1.73m 2 [facility] Urea nitrogen [Mass/Vol] 39 mg/dL High 7.0 - 18.0 mg/dL [facility] Urea nitrogen/Creatinine [Mass ratio] 22.9 mg/mg [facility] CA ECHO DOPPLER COMPLETEon 0 02-21-2025 [place] [address] Cardiology Report Signed Patient: ARIANNE MCQUEEN MR#: [id number] : 1945 Acct:[id number] Age/Sex: 79 / M ADM Date: 02/21/25 Loc: CARD Attending Dr: CATINA HEARN Ordering Physician: CATINA HEARN Date of Service: 02/21/25 Procedure(s): CA echo doppler complete Accession Number(s): [id number] cc: Teressa Sierra ORE ROASTER; CATINA HEARN Patient Name: ARIANNE MCQUEEN MR#: [id number] : 1945 Exam Date: 02/21/2025 Ordering Doctor: DR CATINA HEARN M.D. ECHOCARDIOGRAM REPORT PROCEDURE: CA ECHO DOPPLER COMPLETE INDICATIONS: Chronic diastolic heart failure, h/o pericardial effusion, CABG, [place], COPD, hypertension, diabetes COMPARISON: None. DESCRIPTION: COMPLETE [...] Area (VTI): 4.57 cm2, 4.57 cm2 Deceleration [place]: Pressure Half-Time: Peak Velocity(Antegrade Flow): 0.89 m/s Peak Gradient(Antegrade Flow): 3.13 mm[Hg] Mean Velocity(Antegrade Flow): 0.56 m/s Mean Gradient(Antegrade Flow): 1.52 mm[Hg] Velocity Time Integral: 21.41 cm Tricuspid Valve Peak Velocity (Regurgitant Flow): 2.80 m/s Peak Velocity: Pulmonic Valve Mean Gradient: 1. (more content not included)... [facility] Radiology, Radiologist, - 02/21/2025 [place] [address] Cardiology Report Signed Patient: ARIANNE MCQUEEN MR#: [id number] : 1945 Acct:[id number] Age/Sex: 79 / M ADM Date: 02/21/25 Loc: CARD Attending Dr: CATINA HEARN Ordering Physician: CATINA HEARN Date of Service: 02/21/25 Procedure(s): CA echo doppler complete Accession Number(s): [id number] cc: Teressa Sierra ORE ROASTER; CATINA HEARN Patient Name: ARIANNE MCQUEEN MR#: [id number] : 1945 Exam Date: 02/21/2025 Ordering Doctor: DR CATINA HEARN M.D. ECHOCARDIOGRAM REPORT PROCEDURE: CA ECHO DOPPLER COMPLETE INDICATIONS: Chronic diastolic heart failure, h/o pericardial effusion, CABG, [place], COPD, hypertension, diabetes COMPARISON: None. DESCRIPTION: COMPLETE [...] Area (VTI): 4.57 cm2, 4.57 cm2 Deceleration [place]: Pressure Half-Time: Peak Velocity(Antegrade Flow): 0.89 m/s [...] Signed By: 02/21/25 1441 DD/ 1440 TD/TT: Translator: [facility] Radiology Study observation (narrative) [facility] CA ECHO DOPPLER COMPLETEOrde red By: Radiologist Radiology on 02-21-2025 [facility] Work Phone: No Panel Informationon 02-08 Lesion length (cm): 0.8 Lesion width (cm): [...] 7.0 ml Estimated blood loss: 1.0 ml [facility]ir Medical Complexity: Intermediate Final length (cm): 4 Reason [...] bleeding, or complications. Dressing type: pressure dressing [facility] Office Visiton 01-23-2025 Follow-up visit [id number] Luis M Mcqueen 1945 M Date Provider Department Center 01/23/2025 CATINA ROBERTS SHILPI Santiago Family History Problem Relation Age of Onset Coronary artery disease Mother Family Status - Relation Status Age at Mother Father Level of Service:01797 [place] OFFICE/OUTPATIENT ESTABLISHED MOD MDM 30 MIN Normal [facility] Orders Onlyon 01-12-2025 Orders Only [id number] Luis M Mcqueen 1945 M Date Provider Department Center 01/12/2025 [id number], [facility] SHILPI [place] Family History Problem Relation Age of Onset Coronary artery disease Mother Family Status - Relation Status Age at Mother [facility] 36on 01-02-2025 36 Spoke with Ladonna Yates and made her aware of furosemide increase. She will draw BMP in 1 week at patient's home. Order faxed to her. I spoke with patient and instructed him to double furosemide to 80mg daily. Advised him Ladonna will draw his blood in 1 week. Scheduled him for follow up with Dr. Hearn on 01/23. Patient verbalized understanding. Normal [facility] 36on 12-30-2024 36 Ladonna with [facility] called asking if patient's diuretics could be increased. She said he was at [facility] ED recently for scrotal edema. She [...] receive result I will forward to you. [facility] ALL BASIC METABOLIC PANELon 12-30-2024 Anion gap [Moles/Vol] 6.6 mmol/L [facility] Calcium [Mass/Vol] 8.4 mg/dL Low 8.5 - 10. 1 mg/dL [facility] Chloride [Moles/Vol] 100 mmol/L 98 - 10 7 mmol/L [facility] CO2 [Moles/Vol] 30.5 mmol/L 21.0 - 32.0 mmol/L [facility] Creatinine [Mass/Vol] 1.55 mg/dL High 0.70 - 1.30 mg/dL [facility] GFR/1.73 sq M.predicted CKD-EPI (S/P/Bld) [Vol rate/Area] 53 Low >=60 mL/min/1.73m 2 [facility] Glucose [Mass/Vol] 139 mg/dL High 74 - 106 mg/dL [facility] Interpretation and review of laboratory results Abnormal [facility] Potassium [Moles/Vol] 4.1 mmol/L 3.5 - 5.1 mmol/L [facility] Sodium [Moles/Vol] 133 mmol/L Low 136 - 145 mmol/L [facility] EGFR-NON AF [place] 43 Low >=60 mL/min/1.73m 2 [facility] Urea nitrogen [Mass/Vol] 29 mg/dL High 7.0 - 18.0 mg/dL [facility] Urea nitrogen/Creatinine [Mass ratio] 18.7 mg/mg [facility] ALL PRO BNPon 12-30-2024 NT PRO B TYPE NATRIURETIC PEPT 464 pg/mL NINF - 1800.0 pg/mL [facility] No Panel Informationon 12-30 [facility] No Panel Informationon 12-28 Type of biopsy: [...] taken Amount of lidocaine used: 2.0 cc [facility] No Panel InformationOrdered By: Debora Gould on 12-28-2024 [facility] HbA1c (Bld) [Mass fraction]o n 12-19-2024 Interpretation and review of laboratory results Abnormal [facility] - Hematology and Cell countson 12-19-2024 HbA1c (Bld) [Mass fraction] 5.9 % [facility] ALL BASIC METABOLIC PANELon 10-11-2024 Anion gap [Moles/Vol] 6.7 mmol/L [facility] Calcium [Mass/Vol] 8.6 mg/dL 8.5 - 10. 1 mg/dL [facility] Chloride [Moles/Vol] 104 mmol/L 98 - 10 7 mmol/L [facility] CO2 [Moles/Vol] 30.2 mmol/L 21.0 - 32.0 mmol/L [facility] Creatinine [Mass/Vol] 1.33 mg/dL High 0.70 - 1.30 mg/dL [facility] GFR/1.73 sq M.predicted CKD-EPI (S/P/Bld) [Vol rate/Area] >60 >=60 mL/min/1.73m 2 [facility] Glucose [Mass/Vol] 132 mg/dL High 74 - 106 mg/dL [facility] Interpretation and review of laboratory results Abnormal [facility] Potassium [Moles/Vol] 4.9 mmol/L 3.5 - 5.1 mmol/L [facility] Sodium [Moles/Vol] 136 mmol/L 136 - 145 mmol/L [facility] TBH EGFR-NON AF [place] 52 Low >=60 mL/min/1.73m 2 [facility] Urea nitrogen [Mass/Vol] 31 mg/dL High 7.0 - 18.0 mg/dL [facility] Urea nitrogen/Creatinine [Mass ratio] 23.3 mg/mg [facility] Healthcare Office Visiton 10-03-2024 Follow-up visit [id number] Luis M Mcqueen 1945 M Date Provider Department Center 10/03/2024 CATINA ROBERTS SHILPI [facility] Family History Problem Relation Age of Onset Coronary artery disease Mother Family Status - Relation Status Age at Mother Level of Service:45419 [place] OFFICE/OUTPATIENT ESTABLISHED MOD MDM 30 MIN Normal [facility] ALL CBC WITH AUTO DIFFon BASOPHILS ABSOLUTE AUTO 0 [facility] Basophils/100 WBC (Bld) 0.5 % 0.2 - 2.0 % [facility] Eosinophils/100 WBC (Bld) 3.4 % 0.9 - 7.0 % [facility] Erythrocyte distribution width (RBC) [Ratio] 13.8 % 11.0 - 15.0 % [facility] Hematocrit (Bld) [Volume fraction] 36.7 % Low 42.0 - 54.0 % [facility] Hemoglobin (Bld) [Mass/Vol] 11.9 g/dL Low 14.0 - 18.0 g/dL [facility] IMMATURE GRANULOCYTES ABS AUTO 0.03 [facility] Immature granulocytes/100 WBC (Bld) 0.5 % 0.0 - 0.5 % [facility] Interpretation and review of laboratory results Abnormal [facility] LYMPHOCYTES ABSOLUTE AUTO 1.3 [facility] Lymphocytes/100 WBC (Bld) 20.2 % Low 20.5 - 60.0 % [facility] MCH (RBC) [Entitic mass] 30.5 pg 25.9 - 34.0 pg [facility] MCHC (RBC) [Mass/Vol] 32.4 g/dL 29.9 - 35.2 g/dL [facility] MCV (RBC) [Entitic vol] 94.1 fL High 80.0 - 94.0 fL [facility] MONOCYTES ABSOLUTE AUTO 0.7 [facility] Monocytes/100 WBC (Bld) 10.9 % 1.7 - 12.0 % [facility] NEUTROPHILS ABSOLUTE AUTO 4.2 [facility] Neutrophils/100 WBC (Bld) 64.5 % 43.0 - 75.0 % [facility] Platelet mean volume (Bld) [Entitic vol] 9.4 fL Low 9.5 - 13.5 fL [facility] TBH EO # 0.2 [facility] TB PLT 238 [facility] RBC 3.9 Low [facility] WBC 6.4 [facility] ALL CBC WITH AUTO DIFFon Erythrocyte distribution width (RBC) [Ratio] 13.6 % 11.0 - 15.0 % [facility] Hematocrit (Bld) [Volume fraction] 36.9 % Low 42.0 - 54.0 % [facility] Hemoglobin (Bld) [Mass/Vol] 12.2 g/dL Low 14.0 - 18.0 g/dL [facility] Interpretation and review of laboratory results Abnormal [facility] MCH (RBC) [Entitic mass] 31.2 pg 25.9 - 34.0 pg [facility] MCHC (RBC) [Mass/Vol] 33.1 g/dL 29.9 - 35.2 g/dL [facility] MCV (RBC) [Entitic vol] 94.4 fL High 80.0 - 94.0 fL [facility] Platelet mean volume (Bld) [Entitic vol] 8.7 fL Low 9.5 - 13.5 fL [facility] PLT 195 [facility] RBC 3.91 Low [facility] WBC 7.2 [facility] 36on 03-29-2024 36 Regarding stress haroldo t result from 03/17/2024: CUAUHTEMOC Freeman MA Stress test looks fine No ischemia noted and no reversible defect noted. Patient informed. Normal [facility] Office Visiton 03-09-2024 Follow-up visit [id number] Luis M Mcqueen 1945 M Date Provider Department Center 03/09/2024 ARIELLA GRAVES CARD [facility] Family History Problem Relation Age of Onset Coronary artery disease Mother Family Status - Relation Status Age at Mother Level of Service:29771 [place] OFFICE/OUTPATIENT ESTABLISHED MOD MDM 30 MIN Reason for Visit and Comments: Follow-up [476635] - 3 month follow up Normal [facility] Orders Onlyon 03-09-2024 Orders Only [id number] Luis M Mcqueen 1945 M Date Provider Department Center 03/09/2024 LIBRADO CALDERON CARD [facility] Family History Problem Relation Age of Onset Coronary artery disease Mother Family Status - Relation Status Age at Mother Normal [facility] BNPon 08-20-2022 Natriuretic peptide B (Bld) [Mass/Vol] 1748.0 pg/mL Normal <=1,800.0 [facility] Comment on above: Performed By: #### P OCGLUC #### [facility] [address] [place] [address] Dr. Deidre Tijerina CBC AUTO DIFFon 08-20-2022 BASO # 0.0 103/ul Normal 0.0-0.1 [facility] Comment on above: Performed By: #### C BC #### [facility] [address] [place] [address] Dr. Deidre Tijerina Basophils/100 WBC (Bld) 0.1 % Critically low 0.2-2.0 [facility] Comment on above: Performed By: #### C BC #### [facility] [address] [place] [address] Dr. Deidre Tijerina EO # 0.0 103/ul Normal 0.0-0.7 [facility] Comment on above: Performed By: #### C BC #### [facility] [address] [place] [address] Dr. Deidre Tijerina Eosinophils/100 WBC (Bld) 0.0 % Critically low 0.9-7.0 [facility] Comment on above: Performed By: #### C BC #### [facility] [address] [place] [address] Dr. Deidre Tijerina Erythrocyte distribution width (RBC) [Ratio] 13.6 % Normal 11.0-15.0 [facility] Comment on above: Performed By: #### C BC #### [facility] [address] [place] [address] Dr. Deidre Tijerina Hematocrit (Bld) [Volume fraction] 30.1 % Critically low 42.0-54.0 [facility] Comment on above: Performed By: #### C BC #### [facility] [address] [place] [address] Dr. Deidre Tijerina Hemoglobin (Bld) [Mass/Vol] 9.8 g/dL Critically low 14.0-18.0 [facility] Comment on above: Performed By: #### C BC #### [facility] [address] [place] [address] Dr. Deidre Tijerina IG # 0.13 10e3/ul Critically high 0.00-0.03 [facility] Comment on above: Performed By: #### C BC #### [facility] [address] [place] [address] Dr. Deidre Tijerina IG % 1.0 % Critically high 0.0-0.5 [facility] Comment on above: Performed By: #### C BC #### [facility] [address] [place] [address] Dr. Deidre Tijerina LYMPH # 1.2 103/ul Normal 1.2-3.8 [facility] Comment on above: Performed By: #### C BC #### [facility] [address] [place] [address] Dr. Deidre Tijerina Lymphocytes/100 WBC (Bld) 8.6 % Critically low 20.5-60.0 [facility] Comment on above: Performed By: #### C BC #### [facility] [address] [place] [address] Dr. Deidre Tijerina MANUAL DIFF REQ NO Normal The [facility] Comment on above: Performed By: #### C BC #### [facility] [address] [place] [address] Dr. Deidre Tijerina MCH (RBC) [Entitic mass] 30.7 pg Normal 25.9-34.0 The [facility] Comment on above: Performed By: #### C BC #### [facility] [address] [address] [address] Deidre Tijerina MCHC (RBC) [Mass/Vol] 32.6 g/dL Normal 29.9-35.2 The [facility] Comment on above: Performed By: #### C BC #### [facility] [address] [place] [address] Dr. Deidre Tijerina MCV (RBC) [Entitic vol] 94.4 fL Critically high 80.0-94.0 The [facility] Comment on above: Performed By: #### C BC #### [facility] [address] [place] [address] Dr. Deidre Tijerina MONO # 0.8 103/ul Normal 0.3-0.8 The [facility] Comment on above: Performed By: #### C BC #### [facility] [address] [place] [address] Dr. Deidre Tijerina Monocytes/100 WBC (Bld) 6.2 % Normal 1.7-12.0 The [facility] Comment on above: Performed By: #### C BC #### [facility] [address] [place] [address] Dr. Deidre Tijerina NEUT # 11.3 103/ul Critically high 1.4-6.5 The [facility] Comment on above: Performed By: #### C BC #### [facility] [address] [place] [address] Dr. Deidre Tijerina Neutrophils/100 WBC (Bld) 84.1 % Critically high 43.0-75.0 The [facility] Comment on above: Performed By: #### C BC #### [facility] [address] [place] [address] Dr. Deidre Tijerina Platelet mean volume (Bld) [Entitic vol] 9.3 fL Critically low 9.5-13.5 The [facility] Comment on above: Performed By: #### C BC #### [facility] [address] [address] [address] Deidre Tijerina PLT 204 103/ul Normal 150-450 [facility] Comment on above: Performed By: #### C BC #### [facility] [address] [address] [address] Deidre Tijerina RBC 3.19 106/ul Critically low 4.70-6.10 [facility] Comment on above: Performed By: #### C BC #### [facility] [address] [address] [address] Deidre Tijerina WBC 13.5 103/ul Critically high 4.0-11.0 [facility] Comment on above: Performed By: #### C BC #### [facility] [address] [place] [address] Dr. Deidre Tijerina POINT OF CARE GLUCOSEon 07-25 Glucose [Mass/Vol] 164 mg/dL Critically high 74-106 [facility] Comment on above: Performed By: #### P OCGLUC #### [facility] [address] [place] [address] Dr. Deidre Tijerina PROF CHEM 8 (BAS METB)on Anion gap [Moles/Vol] 10.5 mmol/L Normal [facility] Comment on above: Performed By: #### P OCGLUC #### [facility] [address] [place] [address] Dr. Deidre Tijerina Calcium [Mass/Vol] 8.1 mg/dL Critically low 8.5-10.1 [facility] Comment on above: Performed By: #### P OCGLUC #### [facility] [address] [place] [address] Dr. Deidre Tijerina Chloride [Moles/Vol] 100 mmol/L Normal 98-107 [facility] Comment on above: Performed By: #### P OCGLUC #### [facility] [address] [place] [address] Dr. Deidre Tijerina CO2 [Moles/Vol] 24.4 mmol/L Normal 21.0-32.0 [facility] Comment on above: Performed By: #### P OCGLUC #### [facility] [address] [address] [address] Deidre Tijerina Creatinine [Mass/Vol] 1.17 mg/dL Normal 0.70-1.30 [facility] Comment on above: Performed By: #### P OCGLUC #### [facility] [address] [address] [address] Deidre Tijerina EGFR-AF [place] >60 Normal >=60 [facility] Comment on above: Performed By: #### P OCGLUC #### [facility] [address] [address] [address] Deidre Tijerina EGFR-NON AF [place] 60 mL/min/1.73m2 Normal >=60 [facility] Comment on above: Performed By: #### P OCGLUC #### [facility] [address] [address] [address] Deidre Tijerina Glucose [Mass/Vol] 145 mg/dL Critically high 74-106 [facility] Comment on above: Performed By: #### P OCGLUC #### [facility] [address] [address] [address] Deidre Tijerina Potassium [Moles/Vol] 3.9 mmol/L Normal 3.5-5.1 [facility] Comment on above: Performed By: #### P OCGLUC #### [facility] [address] [address] [address] Deidre Tijerina Sodium [Moles/Vol] 131 mmol/L Critically low 136-145 [facility] Comment on above: Performed By: #### P OCGLUC #### [facility] [address] [address] [address] Deidre Tijerina Urea nitrogen [Mass/Vol] 37.0 mg/dL Critically high 7.0-18.0 [facility] Comment on above: Performed By: #### P OCGLUC #### [facility] [address] [address] [address] Deidre Tijerina Urea nitrogen/Creatinine [Mass ratio] 31.6 mg/mg Normal [facility] Comment on above: Performed By: #### P OCGLUC #### [facility] [address] [place] [address] Dr. Deidre Tijerina XR CHEST 1 Von [...] deformities are again identified. Electronically authenticated by: [employer] Date: 2022-08-20 13:26 Normal The [facility] BNPon 08-19-2022 Natriuretic peptide B (Bld) [Mass/Vol] 955.0 pg/mL Normal <=1,800.0 The [facility] Comment on above: Performed By: #### C BC #### [facility] [address] [place] [address] Dr. Deidre Tijerina CBC W MANUAL DIFFon 08-19-20 22 ATYPICAL LYMPH # 0.28 103/ul Normal The [facility] Comment on above: Performed By: #### P OCGLUC #### [facility] [address] [place] [address] Dr. Deidre Tijerina ATYPICAL LYMPH % 2 % Normal The [facility] Comment on above: Performed By: #### P OCGLUC #### [facility] [address] [place] [address] Dr. Deidre Tijerina BAND # 0.0 103/ul Normal 0.0-0.3 The [facility] Comment on above: Performed By: #### P OCGLUC #### [facility] [address] [place] [address] Dr. Deidre Tijerina BAND % 0 % Normal 0-5 The [facility] Comment on above: Performed By: #### P OCGLUC #### [facility] [address] [place] [address] Dr. Deidre Tijerina BASOM # 0.00 103/ul Normal 0.00-0.10 The [facility] Comment on above: Performed By: #### P OCGLUC #### [facility] [address] [address] [address] Deidre Tijerina BASOM % 0.0 % Critically low 0.2-2.0 [facility] Comment on above: Performed By: #### P OCGLUC #### [facility] [address] [address] [address] Deidre Tijerina BLAST # Normal [facility] Comment on above: Performed By: #### P OCGLUC #### [facility] [address] [address] [address] Deidre Tijerina BLAST % Normal [facility] Comment on above: Performed By: #### P OCGLUC #### [facility] [address] [address] [address] Deidre Tijerina CORRECTED WBC Normal 4.0-11.0 [facility] Comment on above: Performed By: #### P OCGLUC #### [facility] [address] [address] [address] Deidre Tijerina EOS # 0.00 103/ul Normal 0.00-0.70 [facility] Comment on above: Performed By: #### P OCGLUC #### [facility] [address] [place] [address] Dr. Deidre Tijerina EOS% 0.0 % Critically low 0.9-7.0 [facility] Comment on above: Performed By: #### P OCGLUC #### [facility] [address] [place] [address] Dr. Deidre Tijerina HCT 30.4 % Critically low 42.0-54.0 [facility] Comment on above: Performed By: #### P OCGLUC #### [facility] [address] [address] [address] Deidre Tijerina HGB 9.8 g/dl Critically low 14.0-18.0 [facility] Comment on above: Performed By: #### P OCGLUC #### [facility] [address] [place] [address] Dr. Deidre Tijerina LYMPHM # 0.43 103/ul Critically low 1.20-3.80 [facility] Comment on above: Performed By: #### P OCGLUC #### [facility] [address] [address] [address] Deidre Tijerina LYMPHM% 3.0 % Critically low 20.5-60.0 [facility] Comment on above: Performed By: #### P OCGLUC #### [facility] [address] [address] [address] Deidre Tijerina MCH 30.8 pg Normal 25.9-34.0 [facility] Comment on above: Performed By: #### P OCGLUC #### [facility] [address] [address] [address] Deidre Tijerina MCHC 32.2 g/dl Normal 29.9-35.2 [facility] Comment on above: Performed By: #### P OCGLUC #### [facility] [address] [place] [address] Dr. Deidre Tijerina MCV 95.6 fL Critically high 80.0-94.0 [facility] Comment on above: Performed By: #### P OCGLUC #### [facility] [address] [address] [address] Deidre Tijerina METAMYELOCYTE # Normal The [facility] Comment on above: Performed By: #### P OCGLUC #### [facility] [address] [place] [address] Dr. Deidre Tijerina METAMYELOCYTE % Normal The [facility] Comment on above: Performed By: #### P OCGLUC #### [facility] [address] [place] [address] Dr. Deidre Tijerina MONOM# 0.57 103/ul Normal 0.30-0.80 [facility] Comment on above: Performed By: #### P OCGLUC #### [facility] [address] [place] [address] Dr. Deidre Tijerina MONOM% 4.0 % Normal 1.7-12.0 [facility] Comment on above: Performed By: #### P OCGLUC #### [facility] [address] [place] [address] Dr. Deidre Tijerina MPV 9.1 fL Critically low 9.5-13.5 [facility] Comment on above: Performed By: #### P OCGLUC #### [facility] [address] [address] [address] Deidre Tijerina MYELOCYTE # Normal [facility] Comment on above: Performed By: #### P OCGLUC #### [facility] [address] [address] [address] Deidre Tijerina MYELOCYTE % Normal [facility] Comment on above: Performed By: #### P OCGLUC #### [facility] [address] [address] [address] Deidre Tijerina NRBC Normal [facility] Comment on above: Performed By: #### P OCGLUC #### [facility] [address] [place] [address] Dr. Deidre Tijerina PLT 188 103/ul Normal 150-450 [facility] Comment on above: Performed By: #### P OCGLUC #### [facility] [address] [place] [address] Dr. Deidre Tijerina RBC 3.18 106/ul Critically low 4.70-6.10 [facility] Comment on above: Performed By: #### P OCGLUC #### [facility] [address] [place] [address] Dr. Deidre Tijerina RDW 14.0 % Normal 11.0-15.0 [facility] Comment on above: Performed By: #### P OCGLUC #### [facility] [address] [place] [address] Dr. Deidre Tijerina SEG # 12.92 103/ul Critically high 1.40-6.50 [facility] Comment on above: Performed By: #### P OCGLUC #### [facility] [address] [place] [address] Dr. Deidre Tijerina SEG % 91.0 % Critically high 43.0-75.0 [facility] Comment on above: Performed By: #### P OCGLUC #### [facility] [address] [place] [address] Dr. Deidre Tijerina WBC 14.2 103/ul Critically high 4.0-11.0 [facility] Comment on above: Performed By: #### P OCGLUC #### [facility] [address] [place] [address] Dr. Deidre Tijerina POINT OF CARE GLUCOSEon 07-25 Glucose [Mass/Vol] 305 mg/dL Critically high 74-106 [facility] Comment on above: Performed By: #### P OCGLUC #### [facility] [address] [place] [address] Dr. Deidre Tijerina Glucose [Mass/Vol] 181 mg/dL Critically high 74-106 [facility] Comment on above: Performed By: #### C BC #### [facility] [address] [place] [address] Dr. Deidre Tijerina Glucose [Mass/Vol] 342 mg/dL Critically high 74-106 [facility] Comment on above: Performed By: #### P OCGLUC #### [facility] [address] [place] [address] Dr. Deidre Tijerina Glucose [Mass/Vol] 192 mg/dL Critically high -106 [facility] Comment on above: Performed By: #### P OCGLUC #### [facility] [address] [place] [address] Dr. Deidre Tijerina PROF CHEM 8 (BAS METB)on Anion gap [Moles/Vol] 10.3 mmol/L Normal [facility] Comment on above: Performed By: #### B MP, BNP #### [facility] [address] [place] [address] Dr. Deidre Tijerina Calcium [Mass/Vol] 7.9 mg/dL Critically low 8.5-10.1 [facility] Comment on above: Performed By: #### B MP, BNP #### [facility] [address] [place] [address] Dr. Deidre Tijerina Chloride [Moles/Vol] 100 mmol/L Normal 98-107 [facility] Comment on above: Performed By: #### B MP, BNP #### [facility] [address] [address] [address] Deidre Tijerina CO2 [Moles/Vol] 26.6 mmol/L Normal 21.0-32.0 [facility] Comment on above: Performed By: #### B MP, BNP #### [facility] [address] [address] [address] Deidre Tijerina Creatinine [Mass/Vol] 1.29 mg/dL Normal 0.70-1.30 [facility] Comment on above: Performed By: #### B MP, BNP #### [facility] [address] [address] [address] Deidre Tijerina EGFR-AF [place] >60 Normal >=60 [facility] Comment on above: Performed By: #### B MP, BNP #### [facility] [address] [address] [address] Deidre Tijerina EGFR-NON AF [place] 54 mL/min/1.73m2 Critically low >=60 [facility] Comment on above: Performed By: #### B MP, BNP #### [facility] [address] [address] [address] Deidre Tijerina Glucose [Mass/Vol] 190 mg/dL Critically high 74-106 [facility] Comment on above: Performed By: #### B MP, BNP #### [facility] [address] [address] [address] Deidre Tijerina Potassium [Moles/Vol] 3.9 mmol/L Normal 3.5-5.1 [facility] Comment on above: Performed By: #### B MP, BNP #### [facility] [address] [address] [address] Deidre Tijerina Sodium [Moles/Vol] 133 mmol/L Critically low 136-145 [facility] Comment on above: Performed By: #### B MP, BNP #### [facility] [address] [address] [address] Deidre Tijerina Urea nitrogen [Mass/Vol] 35.0 mg/dL Critically high 7.0-18.0 [facility] Comment on above: Performed By: #### B MP, BNP #### [facility] [address] [address] [address] Deidre Tijerina Urea nitrogen/Creatinine [Mass ratio] 27.1 mg/mg Normal [facility] Comment on above: Performed By: #### B MP, BNP #### [facility] [address] [address] [address] Deidre Tijerina BILIRUBIN CONJUGATED (DIRECT )on 08-18-2022 BILI, CONJUGATED 0.4 mg/dL Critically high 0.0-0.2 [facility] Comment on above: Performed By: #### P OCGLUC #### [facility] [address] [address] [address] Deidre Tijerina BLOOD GASES BTYon 08-18-2022 02 MODE BIPAP [facility] Comment on above: Performed By: #### P OCGLUC #### [facility] [address] [place] [address] Dr. Deidre Tijerina ALLENS TEST Positive [facility] Comment on above: Performed By: #### P OCGLUC #### [facility] [address] [address] [address] Deidre Tijerina Base excess Calc (Bld) [Moles/Vol] 1.0 mmol/L Normal -2.0-2.0 [facility] Comment on above: Performed By: #### P OCGLUC #### [facility] [address] [place] [address] Dr. Deidre Tijerina BIPAP PRESSURE 16/8 Normal [facility] Comment on above: Performed By: #### P OCGLUC #### [facility] [address] [address] [address] Deidre Tijerina CPAP Normal [facility] Comment on above: Performed By: #### P OCGLUC #### [facility] [address] [address] [address] Deidre Tijerina FIO2 35.00 % Normal [facility] Comment on above: Performed By: #### P OCGLUC #### [facility] [address] [address] [address] Deidre Tijerina HCO3 (Bld) [Moles/Vol] 25.0 mmol/L Normal 22.0-26.0 [facility] Comment on above: Performed By: #### P OCGLUC #### [facility] [address] [address] [address] Deidre Tijerina LPM [facility] Comment on above: Performed By: #### P OCGLUC #### [facility] [address] [address] [address] Deidre Tijerina MINUTE VOLUME 21 L Normal [facility] Comment on above: Performed By: #### P OCGLUC #### [facility] [address] [address] [address] Deidre Tijerina Oxygen (Bld) [Partial pressure] 83.4 mm[Hg] Normal 80.0-100.0 [facility] Comment on above: Performed By: #### P OCGLUC #### [facility] [address] [place] [address] Dr. Deidre Tijerina Oxygen saturation in Blood 97.5 % Normal 95.0-100.0 [facility] Comment on above: Performed By: #### P OCGLUC #### [facility] [address] [address] [address] Deidre Tijerina PCO2 36.2 mmHg Normal 35.0-45.0 [facility] Comment on above: Performed By: #### P OCGLUC #### [facility] [address] [place] [address] Dr. Deidre Tijerina PEEP 8 [facility] Comment on above: Performed By: #### P OCGLUC #### [facility] [address] [place] [address] Dr. Deidre Tijerina pH (Bld) 7.440 [pH] Normal 7.350-7.450 [facility] Comment on above: Performed By: #### P OCGLUC #### [facility] [address] [place] [address] Dr. Deidre Tijerina PIP 17 [facility] Comment on above: Performed By: #### P OCGLUC #### [facility] [address] [place] [address] Dr. Deidre Tijerina PS 8 [facility] Comment on above: Performed By: #### P OCGLUC #### [facility] [address] [address] [address] Deidre Tijerina PUNCTURE SITE RR Normal [facility] Comment on above: Performed By: #### P OCGLUC #### [facility] [address] [address] [address] Deidre Tijerina RATE 14 bpm Normal [facility] Comment on above: Performed By: #### P OCGLUC #### [facility] [address] [place] [address] Dr. Deidre Tijerina VENT MODE [facility] Comment on above: Performed By: #### P OCGLUC #### [facility] [address] [place] [address] Dr. Deidre Tijerina VT 945 ML Normal [facility] Comment on above: Performed By: #### P OCGLUC #### [facility] [address] [place] [address] Dr. Deidre Tijerina BNPon 08-18-2022 Natriuretic peptide B (Bld) [Mass/Vol] 2561.0 pg/mL Critically high <=1,800.0 [facility] Comment on above: Performed By: #### P OCGLUC #### [facility] [address] [place] [address] Dr. Deidre Tijerina CBC W MANUAL DIFFon 08-18-20 22 ANISOCYTOSIS 1+ Normal [facility] Comment on above: Performed By: #### C BCMAN #### [facility] [address] [place] [address] Dr. Deidre Tijerina ATYPICAL LYMPH # Normal [facility] Comment on above: Performed By: #### C BCMAN #### [facility] [address] [place] [address] Dr. Deidre Tijerina ATYPICAL LYMPH % Normal [facility] Comment on above: Performed By: #### C BCMAN #### [facility] [address] [place] [address] Dr. Deidre Tijerina BAND # 1.2 103/ul Critically high 0.0-0.3 [facility] Comment on above: Performed By: #### C BCMAN #### [facility] [address] [address] [address] Deidre Tijerina BAND % 7 % Critically high 0-5 [facility] Comment on above: Performed By: #### C BCMAN #### [facility] [address] [address] [address] Deidre Tijerina BASOM # 0.00 103/ul Normal 0.00-0.10 [facility] Comment on above: Performed By: #### C BCMAN #### [facility] [address] [address] [address] Deidre Tijerina BASOM % 0.0 % Critically low 0.2-2.0 [facility] Comment on above: Performed By: #### C BCNICOLASA #### [facility] [address] [place] [address] Dr. Deidre Tijerina BLAST # Normal [facility] Comment on above: Performed By: #### C BCNICOLASA #### [facility] [address] [place] [address] Dr. Deidre Tijerina BLAST % Normal [facility] Comment on above: Performed By: #### C BCNICOLASA #### [facility] [address] [place] [address] Dr. Deidre Tijerina CORRECTED WBC Normal 4.0-11.0 [facility] Comment on above: Performed By: #### C BCNICOLASA #### [facility] [address] [place] [address] Dr. Deidre Tijerina EOS # 0.17 103/ul Normal 0.00-0.70 [facility] Comment on above: Performed By: #### C BCMAN #### [facility] [address] [place] [address] Dr. Deidre Tijerina EOS% 1.0 % Normal 0.9-7.0 [facility] Comment on above: Performed By: #### C BCNICOLASA #### [facility] [address] [place] [address] Dr. Deidre Tijerina HCT 34.8 % Critically low 42.0-54.0 [facility] Comment on above: Performed By: #### C ADALGISA #### [facility] [address] [address] [address] Deidre Tijerina HGB 11.5 g/dl Critically low 14.0-18.0 [facility] Comment on above: Performed By: #### C BCNICOLASA #### [facility] [address] [address] [address] Deidre Tijerina LYMPHM # 1.20 103/ul Normal 1.20-3.80 [facility] Comment on above: Performed By: #### C ADALGISA #### [facility] [address] [address] [address] Deidre Tijerina LYMPHM% 7.0 % Critically low 20.5-60.0 [facility] Comment on above: Performed By: #### C ADALGISA #### [facility] [address] [place] [address] Dr. Deidre Tijerina MCH 31.5 pg Normal 25.9-34.0 [facility] Comment on above: Performed By: #### C ADALGISA #### [facility] [address] [address] [address] Deidre Tijerina MCHC 33.0 g/dl Normal 29.9-35.2 [facility] Comment on above: Performed By: #### C ADALGISA #### [facility] [address] [address] [address] Deidre Tijerina MCV 95.3 fL Critically high 80.0-94.0 [facility] Comment on above: Performed By: #### C ADALGISA #### [facility] [address] [address] [address] Deidre Tijerina METAMYELOCYTE # Normal [facility] Comment on above: Performed By: #### C ADALGISA #### [facility] [address] [address] [address] Deidre Tijerina METAMYELOCYTE % Normal [facility] Comment on above: Performed By: #### C ADALGISA #### [facility] [address] [address] [address] Deidre Tijerina MONOM# 1.03 103/ul Critically high 0.30-0.80 [facility] Comment on above: Performed By: #### C BONILLAMAN #### [facility] [address] [place] [address] Dr. Deidre Tijerina MONOM% 6.0 % Normal 1.7-12.0 [facility] Comment on above: Performed By: #### C ADALGISA #### [facility] [address] [place] [address] Dr. Deidre Tijerina MPV 8.7 fL Critically low 9.5-13.5 [facility] Comment on above: Performed By: #### C BCNICOLASA #### [facility] [address] [place] [address] Dr. Deidre Tijerina MYELOCYTE # Normal [facility] Comment on above: Performed By: #### C ADALGISA #### [facility] [address] [place] [address] Dr. Deidre Tijerina MYELOCYTE % Normal [facility] Comment on above: Performed By: #### C ADALGISA #### [facility] [address] [place] [address] Dr. Deidre Tijerina NRBC Normal [facility] Comment on above: Performed By: #### C ADALGISA #### [facility] [address] [place] [address] Dr. Deidre Tijerina PLT 212 103/ul Normal 150-450 [facility] Comment on above: Performed By: #### C ADALGISA #### [facility] [address] [place] [address] Dr. Dedire Tijerina RBC 3.65 106/ul Critically low 4.70-6.10 [facility] Comment on above: Performed By: #### C ADALGISA #### [facility] [address] [place] [address] Dr. Deidre Tijerina RDW 14.0 % Normal 11.0-15.0 [facility] Comment on above: Performed By: #### C ADALGISA #### [facility] [address] [place] [address] Dr. Deidre Tijerina SEG # 13.59 103/ul Critically high 1.40-6.50 [facility] Comment on above: Performed By: #### C BCMAN #### [facility] [address] [address] [address] Deidre Tijerina SEG % 79.0 % Critically high 43.0-75.0 [facility] Comment on above: Performed By: #### C BCMAN #### [facility] [id number] Deidre Tijerina WBC 17.2 103/ul Critically high 4.0-11.0 [facility] Comment on above: Performed By: #### C BCMAN #### [facility] [id number] Deidre Tijerina CT CHEST WO CONon [...] NOREEN KELLY Date: 2022-08-18 12:12 Normal [facility] CULTURE BLOODon 08-18-2022 Microscopic examination of blood, culture Culture Observations: NO GROWTH AT 5 DAYS. Normal [facility] Comment on above: Performed By: #### C BC #### [facility] [address] [address] [address] Deidre Tijerina Microscopic examination of blood, culture Culture Observations: NO GROWTH AT 5 DAYS. Normal [facility] Comment on above: Performed By: #### C BC #### [facility] [address], [place] [address] Dr. Deidre Tijerina Covid-19 PCR ([facility])on 07-25 SARS-CoV-2 (COVID-19) RNA ISA+probe Ql (Unsp spec) Not detected Normal NOT DETECTED [facility] Comment on above: Result Comment: When [...] for this test is supported by the [place] of Health and Human Service's declaration that [...] used). Performed By: #### P OCGLUC #### [facility] [address] [place] [address] [id number] [address] Deidre Tijerina ECHO LIMITED STUDYon 022 ECHO LIMITED STUDY Patient: ARIANNE MCQUEEN Exam Date: 08/18/2022 : 1945 Gender:M Ordering : SHAIKH Zay CARRERA . Admission #: [id number] Family : Order #: [id number] CLICK HERE TO VIEW EXAM ECHOCARDIOGRAM REPORT [...] Leonard M.D. on 08/26/2022 at 09:00 Normal [facility] INFLUENZA A AND B AGon 12- [facility] SEE BELOW Normal [facility] Comment on above: Result Comment: Nega tive for Flu A protein angiten. Infection due to Flu A cannot be ruled out. Flu A angiten in the sample may be below the detection limit of the test. Performed By: #### P OCGLUC #### [facility] [address] [place] [address] Dr. Deidre Tijerina INFLUBNEGH SEE BELOW Normal [facility] Comment on above: Result Comment: Nega tive for Flu B protein antigen. Infection due to Flu B cannot be ruled out. Flu B antigen in the sample may be below the detection limit of the test. Performed By: #### P OCGLUC #### [facility] [address] [place] [address] Dr. Deidre Tijerina INFLUENZA A AG Negative Normal NEGATIVE SEE COMMENT [facility] Comment on above: Performed By: #### P OCGLUC #### [facility] [address] [place] [address] Dr. Deidre Tijerina INFLUENZA B AG Negative Normal NEGATIVE SEE COMMENT [facility] Comment on above: Performed By: #### P OCGLUC #### [facility] [address] [place] [address] Dr. Deidre Tijerina INTERNAL CONTROLS Within Normal Limits Normal Wi thin Normal Limits [facility] Comment on above: Performed By: #### P OCGLUC #### [facility] [address] [address] [address] Deidre Tijerina LACTATE/LACTIC ACIDon 2021 Lactate [Moles/Vol] 2.0 mmol/L Critically high 0.4-1.9 [facility] Comment on above: Performed By: #### P OCGLUC #### [facility] [address] [place] [address] Dr. Deidre Tijerina Lactate [Moles/Vol] 2.0 mmol/L Critically high 0.4-1.9 [facility] Comment on above: Performed By: #### P OCGLUC #### [facility] [address] [place] [address] Dr. Deidre Tijerina POINT OF CARE GLUCOSEon 07-25 Glucose [Mass/Vol] 228 mg/dL Critically high 74-106 [facility] Comment on above: Performed By: #### P OCGLUC #### [facility] [address] [place] [address] Dr. Deidre Tijerina Glucose [Mass/Vol] 119 mg/dL Critically high 74-106 [facility] Comment on above: Performed By: #### P OCGLUC #### [facility] [address] [address] [address] Deidre Tijerina Glucose [Mass/Vol] 161 mg/dL Critically high 74-106 [facility] Comment on above: Performed By: #### C BC #### [facility] [address] [address] [address] Deidre Tijerina PROF 14(COMP METB)on 022 Albumin [Mass/Vol] 2.9 g/dL Critically low 3.4-5.0 [facility] Comment on above: Performed By: #### P OCGLUC #### [facility] [address] [address] [address] Deidre Tijerina Albumin/Globulin [Mass ratio] 0.6 {ratio} Normal [facility] Comment on above: Performed By: #### P OCGLUC #### [facility] [address] [place] [address] Dr. Deidre Tijerina ALP [Catalytic activity/Vol] 71 U/L Normal 46-116 [facility] Comment on above: Performed By: #### P OCGLUC #### [facility] [address] [address] [address] Deidre Tijerina ALT [Catalytic activity/Vol] 13 U/L Critically low 16-63 [facility] Comment on above: Performed By: #### P OCGLUC #### [facility] [address] [address] [address] Deidre Tijerina Anion gap [Moles/Vol] 12.3 mmol/L Normal [facility] Comment on above: Performed By: #### P OCGLUC #### [facility] [address] [address] [address] Deidre Tijerina AST [Catalytic activity/Vol] 14 U/L Critically low 15-37 [facility] Comment on above: Performed By: #### P OCGLUC #### [facility] [address] [place] [address] Dr. Deidre Tijerina Bilirubin [Mass/Vol] 2.6 mg/dL Critically high 0.2-1.0 [facility] Comment on above: Performed By: #### P OCGLUC #### [facility] [address] [address] [address] Deidre Tijerina Calcium [Mass/Vol] 8.5 mg/dL Normal 8.5-10.1 [facility] Comment on above: Performed By: #### P OCGLUC #### [facility] [address] [address] [address] Deidre Tijerina Chloride [Moles/Vol] 98 mmol/L Normal 98-107 [facility] Comment on above: Performed By: #### P OCGLUC #### [facility] [address] [address] [address] Deidre Tijerina CO2 [Moles/Vol] 26.0 mmol/L Normal 21.0-32.0 [facility] Comment on above: Performed By: #### P OCGLUC #### [facility] [address] [address] [address] Deidre Tijerina Creatinine [Mass/Vol] 1.43 mg/dL Critically high 0.70-1.30 [facility] Comment on above: Performed By: #### P OCGLUC #### [facility] [address] [address] [address] Deidre Tijerina EGFR-AF [place] 58 mL/min/1.73m2 Critically low >=60 [facility] Comment on above: Performed By: #### P OCGLUC #### [facility] [address] [address] [address] Deidre Tijerina EGFR-NON AF [place] 48 mL/min/1.73m2 Critically low >=60 [facility] Comment on above: Performed By: #### P OCGLUC #### [facility] [address] [address] [address] Deidre Tijerina Globulin (S) [Mass/Vol] 5.0 g/dL Normal [facility] Comment on above: Performed By: #### P OCGLUC #### [facility] [address] [address] [address] Deidre Tijerina Glucose [Mass/Vol] 165 mg/dL Critically high 74-106 [facility] Comment on above: Performed By: #### P OCGLUC #### [facility] [address] [address] [address] Deidre Tijerina Potassium [Moles/Vol] 4.3 mmol/L Normal 3.5-5.1 [facility] Comment on above: Performed By: #### P OCGLUC #### [facility] [address] [address] [address] Deidre Tijerina Protein [Mass/Vol] 7.9 g/dL Normal 6.4-8.2 [facility] Comment on above: Performed By: #### P OCGLUC #### [facility] [address] [address] [address] Deidre Tijerina Sodium [Moles/Vol] 132 mmol/L Critically low 136-145 [facility] Comment on above: Performed By: #### P OCGLUC #### [facility] [address] [address] [address] Deidre Tijerina Urea nitrogen [Mass/Vol] 25.0 mg/dL Critically high 7.0-18.0 [facility] Comment on above: Performed By: #### P OCGLUC #### [facility] [address] [address] [address] Deidre Tijerina Urea nitrogen/Creatinine [Mass ratio] 17.5 mg/mg Normal [facility] Comment on above: Performed By: #### P OCGLUC #### [facility] [address] [address] [address] Deidre Tijerina TROPONIN, HIGH SENSITIVITYon 08-18-2022 HSTROP 8.4 pg/mL Normal 4.0-76.1 [facility] Comment on above: Result Comment: CUT- OFF POINTS HAVE BEEN ESTABLISHED BASED ON THE FOURTH UNIVERSAL DEFINITIONS OF MYOCARDIAL INFARCTION. THE UPPER REFERENCE LIMIT (URL) OF TROPONIN, DEFINED THE 99TH PERCENTILE OF cTnI DISTRIBUTION IN A REFERENCE POPULATION, HAS BEEN CONFIRMED THE DECISION THRESHOLD FOR [place] DIAGNOSIS. Performed By: #### P OCGLUC #### [facility] [address] [address] [address] Deidre Tijerina XR CHEST 1 Von [...] left costophrenic angle is excluded from the pldor-ep-qaaw. 3. No overt edema, failure, pneumothorax, or sizable effusion noted within limits of study. 4. Old healed nondisplaced anterior right fifth rib fracture deformity faintly suggested. Electronically authenticated by: ESTUARDO ABEBE Date: 2022-08-18 09:37 Normal [facility] STRESS/REST MULTIon 08-04 [place] STRESS/REST MULTI Patient: ARIANNE MCQUEEN Exam Date: 08/04/2022 : 1945 Gender:M Ordering : DR CATINA HEARN M.D. Admission #: [id number] Family : Order #: [id number] CLICK HERE TO VIEW EXAM RADIOLOGY REPORT PROCEDURE: RADIONUCLIDE IMAGING STRESS/REST MULTI COMPARISON: [place] STRESS/REST MULTI, 12/14/2020. INDICATIONS: Dyspnea on exertion [...] Banks MD on 08/07/2022 at 08:29 Normal [facility] BNPon 07-14-2022 Natriuretic peptide B (Bld) [Mass/Vol] 164.0 pg/mL Normal <=1,800.0 [facility] Comment on above: Performed By: #### B ORE ROASTER, BMP #### [facility] [address] [place] [address] Dr. Deidre Tijerina PROF CHEM 8 (BAS METB)on Anion gap [Moles/Vol] 9.2 mmol/L Normal [facility] Comment on above: Performed By: #### B ORE ROASTER, BMP #### [facility] [address] [place] [address] Dr. Deidre Tijerina Calcium [Mass/Vol] 8.4 mg/dL Critically low 8.5-10.1 [facility] Comment on above: Performed By: #### B ORE ROASTER, BMP #### [facility] [address] [place] [address] Dr. Deidre Tijerina Chloride [Moles/Vol] 106 mmol/L Normal 98-107 [facility] Comment on above: Performed By: #### B ORE ROASTER, BMP #### [facility] [address] [place] [address] Dr. Deidre Tijreina CO2 [Moles/Vol] 27.0 mmol/L Normal 21.0-32.0 [facility] Comment on above: Performed By: #### B ORE ROASTER, BMP #### [facility] [address] [place] [address] Dr. Deidre Tijerina Creatinine [Mass/Vol] 1.38 mg/dL Critically high 0.70-1.30 [facility] Comment on above: Performed By: #### B ORE ROASTER, BMP #### [facility] [address] [place] [address] Dr. Deidre Tijerina EGFR-AF [place] =60 Normal >=60 [facility] Comment on above: Performed By: #### B ORE ROASTER, BMP #### [facility] [address] [place] [address] Dr. Deidre Tijerina EGFR-NON AF [place] 50 mL/min/1.73m2 Critically low >=60 [facility] Comment on above: Performed By: #### B ORE ROASTER, BMP #### [facility] [address] [place] [address] Dr. Deidre Tijerina Glucose [Mass/Vol] 95 mg/dL Normal 74-106 [facility] Comment on above: Performed By: #### B ORE ROASTER, BMP #### [facility] [address] [place] [address] Dr. Deidre Tijerina Potassium [Moles/Vol] 5.2 mmol/L Critically high 3.5-5.1 [facility] Comment on above: Performed By: #### B ORE ROASTER, BMP #### [facility] [address] [place] [address] Dr. Deidre Tijerina Sodium [Moles/Vol] 137 mmol/L Normal 136-145 [facility] Comment on above: Performed By: #### B ORE ROASTER, BMP #### [facility] [address] [place] [address] Dr. Deidre Tijerina Urea nitrogen [Mass/Vol] 25.0 mg/dL Critically high 7.0-18.0 [facility] Comment on above: Performed By: #### B ORE ROASTER, BMP #### [facility] [address] [place] [address] Dr. Deidre Tijerina Urea nitrogen/Creatinine [Mass ratio] 18.1 mg/mg Normal [facility] Comment on above: Performed By: #### B ORE ROASTER, BMP #### [facility] [address] [place] [address] Dr. Deidre Tijerina ECHOCARDIO M/2D COMPLETEon 0 05-08-2022 ECHOCARDIO M/2D COMPLETE Patient: ARIANNE MCQUEEN Exam Date: 05/08/2022 : 1945 Gender:M Ordering : DR CATINA HEARN M.D. Admission #: [id number] Family : DR MAL BARNES D.O. Order #: [id number] CLICK HERE TO VIEW EXAM ECHOCARDIOGRAM REPORT [...] Pulmonic Valve Right Atrium Dictated by: Catina Hearn M.D. on 05/09/2022 at 19:44 Approved by: Catina Hearn M.D. on 05/09/2022 at 19:48 Normal [facility] XR LSPINE MIN 4 VIEWSon 04-24 [...] NOREEN KELLY Date: 2022-05-08 10:47 Normal [facility] PROF CHEM 8 (BAS METB)on Anion gap [Moles/Vol] 6.8 mmol/L Normal [facility] Comment on above: Performed By: #### P OCGLUC #### [facility] [address] [address] [address] Deidre Tijerina Calcium [Mass/Vol] 8.8 mg/dL Normal 8.5-10.1 [facility] Comment on above: Performed By: #### P OCGLUC #### [facility] [address] [address] [address] Deidre Tijerina Chloride [Moles/Vol] 102 mmol/L Normal 98-107 [facility] Comment on above: Performed By: #### P OCGLUC #### [facility] [address] [address] [address] Deidre Tijerina CO2 [Moles/Vol] 28.1 mmol/L Normal 21.0-32.0 [facility] Comment on above: Performed By: #### P OCGLUC #### [facility] [address] [address] [address] Deidre Tijerina Creatinine [Mass/Vol] 1.84 mg/dL Critically high 0.70-1.30 [facility] Comment on above: Performed By: #### P OCGLUC #### [facility] [address] [address] [address] Deidre Tijerina EGFR-AF [place] 43 mL/min/1.73m2 Critically low >=60 [facility] Comment on above: Performed By: #### P OCGLUC #### [facility] [address] [address] [address] Deidre Tijerina EGFR-NON AF [place] 36 mL/min/1.73m2 Critically low >=60 [facility] Comment on above: Performed By: #### P OCGLUC #### [facility] [address] [address] [address] Deidre Tijerina Glucose [Mass/Vol] 112 mg/dL Critically high 74-106 [facility] Comment on above: Performed By: #### P OCGLUC #### [facility] [address] [address] [address] Deidre Tijerina Potassium [Moles/Vol] 4.9 mmol/L Normal 3.5-5.1 [facility] Comment on above: Performed By: #### P OCGLUC #### [facility] [address] [address] [address] Deidre Tijerina Sodium [Moles/Vol] 132 mmol/L Critically low 136-145 [facility] Comment on above: Performed By: #### P OCGLUC #### [facility] [address] [place] [address] Dr. Deidre Tijerina Urea nitrogen [Mass/Vol] 40.0 mg/dL Critically high 7.0-18.0 [facility] Comment on above: Performed By: #### P OCGLUC #### [facility] [address] [address] [address] Deidre Tijerina Urea nitrogen/Creatinine [Mass ratio] 21.7 mg/mg Normal [facility] Comment on above: Performed By: #### P OCGLUC #### [facility] [address] [place] [address] Dr. Deidre Tijerina PROF CHEM 8 (BAS METB)on Anion gap [Moles/Vol] 8.9 mmol/L Normal [facility] Comment on above: Performed By: #### B MP #### [facility] [address] [address] [address] Deidre Tijerina Calcium [Mass/Vol] 8.4 mg/dL Critically low 8.5-10.1 [facility] Comment on above: Performed By: #### B MP #### [facility] [address] [address] [address] Deidre Tijerina Chloride [Moles/Vol] 102 mmol/L Normal 98-107 [facility] Comment on above: Performed By: #### B MP #### [facility] [address] [address] [address] Deidre Tijerina CO2 [Moles/Vol] 25.9 mmol/L Normal 21.0-32.0 [facility] Comment on above: Performed By: #### B MP #### [facility] [address] [address] [address] Deidre Tijerina Creatinine [Mass/Vol] 1.20 mg/dL Normal 0.70-1.30 [facility] Comment on above: Performed By: #### B MP #### [facility] [address] [address] [address] Deidre Tijerina EGFR-AF [place] >60 Normal >=60 [facility] Comment on above: Performed By: #### B MP #### [facility] [address] [address] [address] Deidre Tijerina EGFR-NON AF [place] 59 mL/min/1.73m2 Critically low >=60 [facility] Comment on above: Performed By: #### B MP #### [facility] [address] [address] [address] Deidre Tijerina Glucose [Mass/Vol] 117 mg/dL Critically high 74-106 [facility] Comment on above: Performed By: #### B MP #### [facility] [address] [address] [address] Deidre Tijerina Potassium [Moles/Vol] 4.8 mmol/L Normal 3.5-5.1 [facility] Comment on above: Performed By: #### B MP #### [facility] [address] [address] [address] Deidre Tijerina Sodium [Moles/Vol] 132 mmol/L Critically low 136-145 [facility] Comment on above: Performed By: #### B MP #### [facility] [address] [address] [address] Deidre Tijerina Urea nitrogen [Mass/Vol] 25.0 mg/dL Critically high 7.0-18.0 [facility] Comment on above: Performed By: #### B MP #### [facility] [address], [place] [address] Dr. Deidre Tijerina Urea nitrogen/Creatinine [Mass ratio] 20.8 mg/mg Normal [facility] Comment on above: Performed By: #### B MP #### [facility] [address] [place], [place] [address] Dr. Deidre Tijerina US CHESTon 08-05-2021 US CHEST Normal [facility] Comment on above: Order Comment: serom a in the chest needs a drain placed BASIC METABOLIC PANELon - Calcium [Mass/Vol] 8.4 mg/dL Low 8.6-10.3 [facility] Comment on above: Order Comment: this is not a nurse draw. lab draw pleaseNo: Do not add to previous draw Performed By: #### 0 0071 ####[facility] [place] [address], [facility] Chloride [Moles/Vol] 102 mmol/L Normal 98-107 [facility] Comment on above: Order Comment: this is not a nurse draw. lab draw pleaseNo: Do not add to previous draw Performed By: #### 0 0071 ####[facility] [place] [address], [facility] CO2 [Moles/Vol] 25 mmol/L Normal 21-31 [facility] Comment on above: Order Comment: this is not a nurse draw. lab draw pleaseNo: Do not add to previous draw Performed By: #### 0 0071 ####[facility] [place] [address], [facility] Creatinine [Mass/Vol] 2.56 mg/dL High 0.70-1.30 [facility] Comment on above: Order Comment: this is not a nurse draw. lab draw pleaseNo: Do not add to previous draw Performed By: #### 0 0071 ####[facility] [place] [address], [facility] eGFR- 30 ml/min/1.73sq m Abnormal >60 [facility] Comment on above: Order Comment: this is not a nurse draw. lab draw pleaseNo: Do not add to previous draw Result Comment: Calc ulation may not be valid for patients over 70 years Performed By: #### 0 [id number] ####[facility] [place] [address], [facility] eGFR- non- 24 ml/min/1.73sq m Abnormal >60 [facility] Comment on above: Order Comment: this is not a nurse draw. lab draw pleaseNo: Do not add to previous draw Result Comment: Calc ulation may not be valid for patients over 70 years Performed By: #### 0 [id number] ####[facility] [facility] [address], [facility] Glucose [Mass/Vol] 182 mg/dL High 70-100 [facility] Comment on above: Order Comment: this is not a nurse draw. lab draw pleaseNo: Do not add to previous draw Performed By: #### 0 0071 ####[facility] [place] [address], [place] Potassium [Moles/Vol] 4.5 mmol/L Normal 3.5-5.1 [facility] Comment on above: Order Comment: this is not a nurse draw. lab draw pleaseNo: Do not add to previous draw Performed By: #### 0 0071 ####[facility] [place] [address], [place] Sodium [Moles/Vol] 133 mmol/L Low 136-145 [facility] Comment on above: Order Comment: this is not a nurse draw. lab draw pleaseNo: Do not add to previous draw Performed By: #### 0 [id number] ####[facility] [place] [address], [place] Urea nitrogen [Mass/Vol] 28 mg/dL High 7-25 [facility] Comment on above: Order Comment: this is not a nurse draw. lab draw pleaseNo: Do not add to previous draw Performed By: #### 0 0071 ####[facility] POC GLUCOSE LABon 06-02-2021 Glucose [Mass/Vol] 246 mg/dL High 70-100 [facility] Comment on above: Performed By: #### 8 5499 ####[facility]3000 [facility] [place] [address], [facility] Glucose [Mass/Vol] 109 mg/dL High 70-100 The [facility] Comment on above: Performed By: #### 8 5499 ####[address] POC SARS COV2 ANTIGEN NEGATI VEon 06-02-2021 POC SARS COV2 ANTIGEN NEG Negative Normal NEGATIVE The [facility] Comment on above: Result Comment: Nega tive [...] of clinicalsigns and symptoms consistent with COVID-19.The EARTHTORYW COVID-19 Ag Card is a lateral flow immunoassay intended forthe qualitative detection of nucleocapsid protein antigen [id number] in direct nasal swabs from individuals within [...] #### 3 1977 ####[facility]3000 [facility] [address], [facility] POC SARS COV2 ANTIGEN NEG Negative Normal NEGATIVE The [facility] Comment on above: Result Comment: Nega tive [...] of clinicalsigns and symptoms consistent with COVID-19.The Zuli COVID-19 Ag Card is a lateral flow immunoassay intended forthe qualitative detection of nucleocapsid protein antigen [id number]-3 in direct nasal swabs from individuals within [...] #### 3 1977 ####[facility]3000 [facility] [place] [address], [facility] POC GLUCOSE LABon 06-01-2021 Glucose [Mass/Vol] 142 mg/dL High 70-100 [facility] Comment on above: Performed By: #### 8 5499 ####[facility]3000 [facility] [place] [address], [place] Glucose [Mass/Vol] 132 mg/dL High 70-100 [facility] Comment on above: Performed By: #### 8 5499 ####[facility]3000 [facility] [place] [address], [facility] Glucose [Mass/Vol] 167 mg/dL High 70-100 The [facility] Comment on above: Performed By: #### 8 5499 ####[facility]3000 [facility].[address] Glucose [Mass/Vol] 113 mg/dL High 70-100 [facility] Comment on above: Performed By: #### 8 5499 ####[facility]3000 [facility].[address] APTTon 05-31-2021 aPTT Coag (Bld) [Time] 29.3 s Normal 25.0-35.0 Th e [facility] Comment on above: Result Comment: ALL RESULTS [...] THIS PURPOSE. Performed By: #### 5 7307, 26923 ####[facility]3000 [facility].[address] CBC W/DIFFon 05-31-2021 ABS IMM GRANS 0.1 10*3/uL Normal 0.0-0.2 The [facility] Comment on above: Order Comment: No: D o not add to previous draw Performed By: #### 5 0103 ####[facility] ABS NEUTROPHILS 4.9 10*3/uL Normal 1.6-7.6 [facility] Comment on above: Order Comment: No: D o not add to previous draw Performed By: #### 5 0103 ####[facility]3000 [facility].[address] Basophils (Bld) [#/Vol] 0.1 10*3/uL Normal 0.0-0.2 The [facility] Comment on above: Order Comment: No: D o not add to previous draw Performed By: #### 5 0103 ####[address] [place] [address], [facility] Basophils/100 WBC (Bld) 0.6 % Normal 0.0-1.0 The [facility] Comment on above: Order Comment: No: D o not add to previous draw Performed By: #### 5 0103 ####[address] [place] [address], [facility] Eosinophils (Bld) [#/Vol] 0.4 10*3/uL Normal 0.0-0.5 The [facility] Comment on above: Order Comment: No: D o not add to previous draw Performed By: #### 5 0103 ####[place] [address], [facility] Eosinophils/100 WBC (Bld) 5.3 % Normal 0.0-6.0 The [facility] Comment on above: Order Comment: No: D o not add to previous draw Performed By: #### 5 0103 ####[address] Erythrocyte distribution width (RBC) [Ratio] 15.7 % High 11.5-15.0 The [facility] Comment on above: Order Comment: No: D o not add to previous draw Performed By: #### 5 0103 ####[place] [address] Hematocrit (Bld) [Volume fraction] 27.6 % Low 39.0-50.0 The [facility] Comment on above: Order Comment: No: D o not add to previous draw Performed By: #### 5 0103 ####[place] [address], [facility] Hemoglobin (Bld) [Mass/Vol] 8.5 g/dL Low 13.0-17.0 [facility] Comment on above: Order Comment: No: D o not add to previous draw Performed By: #### 5 0103 ####[address] [place] [address], [place] IMMATURE GRANS 1.1 % High 0.0-1.0 The [facility] Comment on above: Order Comment: No: D o not add to previous draw Performed By: #### 5 0103 ####[address] Lymphocytes (Bld) [#/Vol] 1.7 10*3/uL Normal 1.2-4.0 The [facility] Comment on above: Order Comment: No: D o not add to previous draw Performed By: #### 5 0103 ####[address] Lymphocytes/100 WBC (Bld) 21.4 % Normal 20.0-45.0 The [facility] Comment on above: Order Comment: No: D o not add to previous draw Performed By: #### 5 0103 ####[address] MCH (RBC) [Entitic mass] 29.2 pg Normal 27.0-33.0 [facility] Comment on above: Order Comment: No: D o not add to previous draw Performed By: #### 5 0103 ####[address] MCHC (RBC) [Mass/Vol] 30.8 g/dL Low 32.0-35.0 [facility] Comment on above: Order Comment: No: D o not add to previous draw Performed By: #### 5 0103 ####[address] MCV (RBC) [Entitic vol] 94.8 fL Normal 82.0-98.0 [facility] Comment on above: Order Comment: No: D o not add to previous draw Performed By: #### 5 0103 ####[address] [place] [address], [facility] Monocytes (Bld) [#/Vol] 0.8 10*3/uL Normal 0.1-1.0 The [facility] Comment on above: Order Comment: No: D o not add to previous draw Performed By: #### 5 0103 ####[facility] [place] [address], [facility] MONOS 9.7 % Normal 5.0-12.0 The [facility] Comment on above: Order Comment: No: D o not add to previous draw Performed By: #### 5 0103 ####[facility] [facility] [address], [facility] Neutrophils/100 WBC (Bld) 61.9 % Normal 40.0-72.0 The [facility] Comment on above: Order Comment: No: D o not add to previous draw Performed By: #### 5 0103 ####[facility] [facility] [address], [facility] Nucleated RBC/100 WBC (Bld) [Ratio] 0 % Normal 0-0 The [facility] Comment on above: Order Comment: No: D o not add to previous draw Performed By: #### 5 0103 ####[facility] [place] [address], [facility] PLAT CNT 351 10*3/uL Normal 150-400 [facility] Comment on above: Order Comment: No: D o not add to previous draw Performed By: #### 5 0103 ####[facility] [place] [address], [facility] RBC (Bld) [#/Vol] 2.91 10*6/uL Low 4.20-5.70 The [facility] Comment on above: Order Comment: No: D o not add to previous draw Performed By: #### 5 0103 ####[facility] WBC (Bld) [#/Vol] 7.96 10*3/uL Normal 4.00-10.60 [facility] Comment on above: Order Comment: No: D o not add to previous draw Performed By: #### 5 0103 ####[facility] COMP METABOLIC PANELon 05-31 Albumin [Mass/Vol] 2.9 g/dL Low 3.5-5.7 [facility] Comment on above: Order Comment: No: D o not add to previous drawNurse draw Performed By: #### 1 0070, 72514 ####[facility] [facility] ALKALINE PHOSPH 70 IU/L Normal 34-104 [facility] Comment on above: Order Comment: No: D o not add to previous drawNurse draw Performed By: #### 1 0, 04084 ####[facility] ALT [Catalytic activity/Vol] 9 U/L Normal 7-52 [facility] Comment on above: Order Comment: No: D o not add to previous drawNurse draw Performed By: #### 1 0, 15997 ####[facility] [facility] AST [Catalytic activity/Vol] 11 U/L Low 13-39 [facility] Comment on above: Order Comment: No: D o not add to previous drawNurse draw Performed By: #### 1 0070, 10757 ####[facility] [place] [address], [facility] Bilirubin [Mass/Vol] 0.6 mg/dL Normal 0.3-1.0 [facility] Comment on above: Order Comment: No: D o not add to previous drawNurse draw Performed By: #### 1 0070, 03597 ####[facility] [place] [address], [facility] Calcium [Mass/Vol] 8.4 mg/dL Low 8.6-10.3 [facility] Comment on above: Order Comment: No: D o not add to previous drawNurse draw Performed By: #### 1 0070, 48706 ####[facility] [place] [address], [facility] Chloride [Moles/Vol] 102 mmol/L Normal 98-107 [facility] Comment on above: Order Comment: No: D o not add to previous drawNurse draw Performed By: #### 1 0070, 39711 ####[facility] [place] [address], [facility] CO2 [Moles/Vol] 27 mmol/L Normal 21-31 [facility] Comment on above: Order Comment: No: D o not add to previous drawNurse draw Performed By: #### 1 0070, 53725 ####[facility] [facility] [address], [facility] Creatinine [Mass/Vol] 2.90 mg/dL High 0.70-1.30 [facility] Comment on above: Order Comment: No: D o not add to previous drawNurse draw Performed By: #### 1 0, 46227 ####[facility] [facility] eGFR- 26 ml/min/1.73sq m Abnormal >60 [facility] Comment on above: Order Comment: No: D o not add to previous drawNurse draw Result Comment: Calc ulation may not be valid for patients over 70 years Performed By: #### 1 0070, 87730 ####[facility] [place] [address], [facility] eGFR- non- 21 ml/min/1.73sq m Abnormal >60 The [facility] Comment on above: Order Comment: No: D o not add to previous drawNurse draw Result Comment: Calc ulation may not be valid for patients over 70 years Performed By: #### 1 0, 17247 ####[facility] [place] [address], [place] Glucose [Mass/Vol] 97 mg/dL Normal 70-100 [facility] Comment on above: Order Comment: No: D o not add to previous drawNurse draw Performed By: #### 1 69, 08855 ####[facility] [place] [address], [place] Potassium [Moles/Vol] 4.4 mmol/L Normal 3.5-5.1 [facility] Comment on above: Order Comment: No: D o not add to previous drawNurse draw Performed By: #### 1 69, 66221 ####[facility] [place] [address], [place] Protein [Mass/Vol] 6.5 g/dL Normal 6.0-8.3 [facility] Comment on above: Order Comment: No: D o not add to previous drawNurse draw Performed By: #### 1 69, 61250 ####[facility] [place] [address], [place] Sodium [Moles/Vol] 134 mmol/L Low 136-145 [facility] Comment on above: Order Comment: No: D o not add to previous drawNurse draw Performed By: #### 1 69, 99386 ####[facility] [place] [address], [place] Urea nitrogen [Mass/Vol] 31 mg/dL High 7-25 [facility] Comment on above: Order Comment: No: D o not add to previous drawNurse draw Performed By: #### 1 69, 80471 ####[facility] [place] [address], [place] MAGNESIUM BLOODon 05-31-2021 Magnesium [Mass/Vol] 1.8 mg/dL Low 1.9-2.7 [facility] Comment on above: Performed By: #### 1 0070, 65708 ####[facility] [facility] [place] [address], [facility] POC GLUCOSE LABon 05-31-2021 Glucose [Mass/Vol] 120 mg/dL High 70-100 [facility] Comment on above: Performed By: #### 8 5499 ####[facility] [facility] [place] [address], [facility] Glucose [Mass/Vol] 124 mg/dL High 70-100 [facility] Comment on above: Performed By: #### 8 5499 ####[facility] [facility] [place] [address], [facility] Glucose [Mass/Vol] 136 mg/dL High 70-100 [facility] Comment on above: Performed By: #### 8 5499 ####[facility] [facility] [place] [address], [facility] Glucose [Mass/Vol] 115 mg/dL High 70-100 [facility] Comment on above: Performed By: #### 8 5499 ####[facility] [facility] [place] [address], [facility] PORTABLE CHEST 1 VIEWon 100 PORTABLE CHEST 1 VIEW Normal [facility] Comment on above: Order Comment: evalu ate for CHF PROTHROMBIN TIMEon INR Coag (PPP) [Relative time] 1.13 {INR} Normal 0.91-1.16 [facility] Comment on above: Result Comment: ACCC P RECOMMENDED INR FOR WARFARIN THERAPY CONDITION INRPROPHYLAXIS OF VENOUS THROMBOSIS 2-3(HIGH-RISK SURGERY)TREATMENT OF VENOUS THROMBOSIS 2-3TREATMENT OF PULMONARY EMBOLISM 2-3PREVENTION OF SYSTEMIC EMBOLISM: 2-3 ACUTE MYOCARDIAL INFARCTION TISSUE HEART VALVES VALVULAR HEART DISEASE ATRIAL FIBRILLATION RECURRENT SYSTEMIC EMBOLISMMECHANICAL HEART VALVE 2.5-3.5 FROM: ORAL ANTICOAGULANTS. MECHANISM OF ACTION, CLINICALEFFECTIVENESS, AND OPTIMAL THERAPEUTIC RANGE. [id number]. Performed By: #### 5 7307, 08861 ####[facility] PT Coag (PPP) [Time] 14.5 s Normal 12.3-14.8 [facility] Comment on above: Result Comment: ALL RESULTS MUST BE INTERPRETED WITH RESPECT TO BLOOD DRAWING ARTIFACTOR DILUTION ERROR OF ANTICOAGULANT AT THE TIME OF SAMPLING. Performed By: #### 5 7307, 94964 ####[facility]3000 [facility].[address] ALBUMIN BLOODon 05-30-2021 Albumin [Mass/Vol] 3.0 g/dL Low 3.5-5.7 [facility] Comment on above: Performed By: #### 1 0, 08226, ####[facility]3000 [facility].[address] BASIC METABOLIC PANELon 10-0 Calcium [Mass/Vol] 8.6 mg/dL Normal 8.6-10.3 [facility] Comment on above: Order Comment: No: D o not add to previous draw Performed By: #### 1 0, 75447, ####[facility] [facility] Chloride [Moles/Vol] 102 mmol/L Normal 98-107 [facility] Comment on above: Order Comment: No: D o not add to previous draw Performed By: #### 1 0, , 24307 ####[facility] [place] [address], [facility] CO2 [Moles/Vol] 25 mmol/L Normal 21-31 [facility] Comment on above: Order Comment: No: D o not add to previous draw Performed By: #### 1 0, , 82438 ####[facility] [place] [address], [facility] Creatinine [Mass/Vol] 2.49 mg/dL High 0.70-1.30 [facility] Comment on above: Order Comment: No: D o not add to previous draw Performed By: #### 1 0, , 26471 ####[facility] [place] [address], [facility] eGFR- 31 ml/min/1.73sq m Abnormal >60 [facility] Comment on above: Order Comment: No: D o not add to previous draw Result Comment: Calc ulation may not be valid for patients over 70 years Performed By: #### 1 0, , 82884 ####[facility] [place] [address], [facility] eGFR- non- 25 ml/min/1.73sq m Abnormal >60 [facility] Comment on above: Order Comment: No: D o not add to previous draw Result Comment: Calc ulation may not be valid for patients over 70 years Performed By: #### 1 0, 98750, 43628 ####[facility] [place] [address], [facility] Glucose [Mass/Vol] 100 mg/dL Normal 70-100 [facility] Comment on above: Order Comment: No: D o not add to previous draw Performed By: #### 1 0, , 91884 ####[facility] Potassium [Moles/Vol] 4.5 mmol/L Normal 3.5-5.1 [facility] Comment on above: Order Comment: No: D o not add to previous draw Performed By: #### 1 69, , ####[facility]3000 [facility].[address] Sodium [Moles/Vol] 134 mmol/L Low 136-145 [facility] Comment on above: Order Comment: No: D o not add to previous draw Performed By: #### 1 69, , ####[facility] Urea nitrogen [Mass/Vol] 32 mg/dL High 7-25 [facility] Comment on above: Order Comment: No: D o not add to previous draw Performed By: #### 1 69, , ####[facility] CBC COMPLETE BLOOD COUNTon Erythrocyte distribution width (RBC) [Ratio] 15.7 % High 11.5-15.0 [facility] Comment on above: Order Comment: No: D o not add to previous draw Performed By: #### 5 0608 ####[facility]3000 [facility].[address] Hematocrit (Bld) [Volume fraction] 26.5 % Low 39.0-50.0 [facility] Comment on above: Order Comment: No: D o not add to previous draw Performed By: #### 5 0608 ####[facility]3000 [facility].[address] Hemoglobin (Bld) [Mass/Vol] 8.4 g/dL Low 13.0-17.0 [facility] Comment on above: Order Comment: No: D o not add to previous draw Performed By: #### 5 0608 ####[facility]3000 [facility].[address] MCH (RBC) [Entitic mass] 28.9 pg Normal 27.0-33.0 [facility] Comment on above: Order Comment: No: D o not add to previous draw Performed By: #### 5 0608 ####[facility] [facility] [place] [address], [facility] MCHC (RBC) [Mass/Vol] 31.7 g/dL Low 32.0-35.0 [facility] Comment on above: Order Comment: No: D o not add to previous draw Performed By: #### 5 0608 ####[facility] [place] [address], [facility] MCV (RBC) [Entitic vol] 91.1 fL Normal 82.0-98.0 [facility] Comment on above: Order Comment: No: D o not add to previous draw Performed By: #### 5 0608 ####[facility] Nucleated RBC/100 WBC (Bld) [Ratio] 0 % Normal 0-0 [facility] Comment on above: Order Comment: No: D o not add to previous draw Performed By: #### 5 0608 ####[facility] [place] [address], [facility] PLAT CNT 338 10*3/uL Normal 150-400 [facility] Comment on above: Order Comment: No: D o not add to previous draw Performed By: #### 5 0608 ####[facility] [place] [address], [facility] RBC (Bld) [#/Vol] 2.91 10*6/uL Low 4.20-5.70 [facility] Comment on above: Order Comment: No: D o not add to previous draw Performed By: #### 5 0608 ####[facility] [place] [address], [facility] WBC (Bld) [#/Vol] 7.23 10*3/uL Normal 4.00-10.60 [facility] Comment on above: Order Comment: No: D o not add to previous draw Performed By: #### 5 0608 ####[facility] [place] [address], [facility] CREATININE URINE RANDOMon Creatinine (U) [Mass/Vol] 39.0 mg/dL Normal [facility] Comment on above: Order Comment: No: D o not add to previous draw Result Comment: Ther e are no established reference values for random urine specimens Performed By: #### 2 5706, 01763 ####[facility] [place] [address], [facility] MAGNESIUM BLOODon 05-30-2021 Magnesium [Mass/Vol] 1.9 mg/dL Normal 1.9-2.7 [facility] Comment on above: Order Comment: No: D o not add to previous draw Performed By: #### 1 0070, 33249, 51376 ####[facility] [place] [address], [facility] POC GLUCOSE LABon 05-30-2021 Glucose [Mass/Vol] 155 mg/dL High 70-100 [facility] Comment on above: Performed By: #### 8 5499 ####[facility] [place] [address], [place] Glucose [Mass/Vol] 129 mg/dL High 70-100 [facility] Comment on above: Performed By: #### 8 5499 ####[facility] [place] [address], [place] Glucose [Mass/Vol] 147 mg/dL High 70-100 [facility] Comment on above: Performed By: #### 8 5499 ####[facility] [place] [address], [facility] PORTABLE CHEST 1 VIEWon 0 PORTABLE CHEST 1 VIEW Normal [facility] Comment on above: Order Comment: Evalu ate for Atelectasis T PROT UR Isi 05-30-2021 U TOTAL PROTEIN 88.8 mg/dL Normal [facility] Comment on above: Order Comment: No: D o not add to previous draw Result Comment: Ther e are no established reference values for random urine specimens Performed By: #### 2 5706, 13345 ####[facility] [place] [address], [facility] URINE TRINH STAIN/EOSon EOSINOPHIL SMEAR NONE SEEN Normal NSN [facility] Comment on above: Order Comment: No: D o not add to previous draw [place] Normal [facility] Comment on above: Order Comment: No: D o not add to previous draw Result Comment: Test Performed by [facility] [place] [address] - Released 05/30/2021 20:40 US RENALon 05-30-2021 US RENAL Normal [facility] Comment on above: Order Comment: Other , FREDA BASIC METABOLIC PANELon Calcium [Mass/Vol] 8.4 mg/dL Low 8.6-10.3 [facility] Comment on above: Order Comment: No: D o not add to previous draw Performed By: #### 4 999, 43866, 49947 ####[facility] [facility] [place] [address], [facility] Chloride [Moles/Vol] 102 mmol/L Normal 98-107 [facility] Comment on above: Order Comment: No: D o not add to previous draw Performed By: #### 4 1000, 15057, 84254 ####[facility] [facility] [place] [address], [place] CO2 [Moles/Vol] 25 mmol/L Normal 21-31 [facility] Comment on above: Order Comment: No: D o not add to previous draw Performed By: #### 4 1000, 24285, 14595 ####[facility] [place] [address], [facility] Creatinine [Mass/Vol] 2.12 mg/dL High 0.70-1.30 [facility] Comment on above: Order Comment: No: D o not add to previous draw Performed By: #### 4 1000, 18724, 27943 ####[facility] [place] [address], [facility] eGFR- 37 ml/min/1.73sq m Abnormal >60 [facility] Comment on above: Order Comment: No: D o not add to previous draw Result Comment: Calc ulation may not be valid for patients over 70 years Performed By: #### 4 1000, 56948, 45584 ####[facility] [place] [address], [facility] eGFR- non- 30 ml/min/1.73sq m Abnormal >60 [facility] Comment on above: Order Comment: No: D o not add to previous draw Result Comment: Calc ulation may not be valid for patients over 70 years Performed By: #### 4 1000, 45644, 02905 ####[facility] [place] [address], [facility] Glucose [Mass/Vol] 103 mg/dL High 70-100 [facility] Comment on above: Order Comment: No: D o not add to previous draw Performed By: #### 4 1000, 00154, 20676 ####[facility] [id number], [facility] Potassium [Moles/Vol] 4.6 mmol/L Normal 3.5-5.1 [facility] Comment on above: Order Comment: No: D o not add to previous draw Performed By: #### 4 1000, 50955, 87266 ####[facility] Sodium [Moles/Vol] 133 mmol/L Low 136-145 [facility] Comment on above: Order Comment: No: D o not add to previous draw Performed By: #### 4 1000, 88813, 97044 ####[facility] Urea nitrogen [Mass/Vol] 33 mg/dL High 7-25 [facility] Comment on above: Order Comment: No: D o not add to previous draw Performed By: #### 4 1000, 22916, 38705 ####[facility] CBC COMPLETE BLOOD COUNTon Erythrocyte distribution width (RBC) [Ratio] 15.7 % High 11.5-15.0 [facility] Comment on above: Order Comment: No: D o not add to previous draw Performed By: #### 5 0608 ####[facility] Hematocrit (Bld) [Volume fraction] 26.4 % Low 39.0-50.0 [facility] Comment on above: Order Comment: No: D o not add to previous draw Performed By: #### 5 0608 ####[facility] Hemoglobin (Bld) [Mass/Vol] 8.4 g/dL Low 13.0-17.0 [facility] Comment on above: Order Comment: No: D o not add to previous draw Performed By: #### 5 0608 ####[facility] [place] [address], [facility] MCH (RBC) [Entitic mass] 29.0 pg Normal 27.0-33.0 [facility] Comment on above: Order Comment: No: D o not add to previous draw Performed By: #### 5 0608 ####[facility] MCHC (RBC) [Mass/Vol] 31.8 g/dL Low 32.0-35.0 [facility] Comment on above: Order Comment: No: D o not add to previous draw Performed By: #### 5 0608 ####[facility] [facility] [place] [address], [facility] MCV (RBC) [Entitic vol] 91.0 fL Normal 82.0-98.0 [facility] Comment on above: Order Comment: No: D o not add to previous draw Performed By: #### 5 0608 ####[facility] [facility].[address] Nucleated RBC/100 WBC (Bld) [Ratio] 0 % Normal 0-0 [facility] Comment on above: Order Comment: No: D o not add to previous draw Performed By: #### 5 0608 ####[facility] [facility] [place] [address], [facility] PLAT CNT 346 10*3/uL Normal 150-400 [facility] Comment on above: Order Comment: No: D o not add to previous draw Performed By: #### 5 0608 ####[facility] [facility] [place] [address], [facility] RBC (Bld) [#/Vol] 2.90 10*6/uL Low 4.20-5.70 [facility] Comment on above: Order Comment: No: D o not add to previous draw Performed By: #### 5 0608 ####[facility] [facility] [place] [address], [facility] WBC (Bld) [#/Vol] 7.17 10*3/uL Normal 4.00-10.60 [facility] Comment on above: Order Comment: No: D o not add to previous draw Performed By: #### 5 0608 ####[facility] [place] [address], [place] MAGNESIUM BLOODon 05-29-2021 Magnesium [Mass/Vol] 1.9 mg/dL Normal 1.9-2.7 [facility] Comment on above: Order Comment: No: D o not add to previous draw Performed By: #### 4 1000, 98754, 21129 ####[facility] [place] [address], [place] PHOSPHORUS BLOODon Phosphate [Mass/Vol] 4.4 mg/dL Normal 2.5-5.0 [facility] Comment on above: Order Comment: No: D o not add to previous draw Performed By: #### 4 1000, 52907, 42766 ####[facility] [place] [address], [place] POC GLUCOSE LABon 05-29-2021 Glucose [Mass/Vol] 183 mg/dL High 70-100 [facility] Comment on above: Performed By: #### 8 5499 ####[facility] [place] [address], [place] Glucose [Mass/Vol] 124 mg/dL High 70-100 [facility] Comment on above: Performed By: #### 8 5499 ####[facility] [place] [address], [place] Glucose [Mass/Vol] 187 mg/dL High 70-100 [facility] Comment on above: Performed By: #### 8 5499 ####[facility] [place] [address], [place] Glucose [Mass/Vol] 189 mg/dL High 70-100 [facility] Comment on above: Performed By: #### 8 5499 ####[facility] [place] [address], [place] PORTABLE CHEST 1 VIEWon 10- PORTABLE CHEST 1 VIEW Normal [facility] Comment on above: Order Comment: evalu ate for Atelectasis BASIC METABOLIC PANELon 10-0 -2020 Calcium [Mass/Vol] 8.3 mg/dL Low 8.6-10.3 [facility] Comment on above: Order Comment: No: D o not add to previous draw Performed By: #### 2 5508, 60491, 42749, 48696 ####[facility] [place] [address], [facility] Chloride [Moles/Vol] 99 mmol/L Normal 98-107 [facility] Comment on above: Order Comment: No: D o not add to previous draw Performed By: #### 2 5508, 22298, 35448, 93595 ####[facility] [place] [address], [facility] CO2 [Moles/Vol] 26 mmol/L Normal 21-31 [facility] Comment on above: Order Comment: No: D o not add to previous draw Performed By: #### 2 5508, 08935, 95041, 53557 ####[facility] [place] [address], [facility] Creatinine [Mass/Vol] 2.18 mg/dL High 0.70-1.30 [facility] Comment on above: Order Comment: No: D o not add to previous draw Performed By: #### 2 5508, 98581, 45586, 64234 ####[facility] [place] [address], [facility] eGFR- 36 ml/min/1.73sq m Abnormal >60 [facility] Comment on above: Order Comment: No: D o not add to previous draw Result Comment: Calc ulation may not be valid for patients over 70 years Performed By: #### 2 5508, 75955, 18964, 27441 ####[facility] [place] [address], [facility] eGFR- non- 29 ml/min/1.73sq m Abnormal >60 [facility] Comment on above: Order Comment: No: D o not add to previous draw Result Comment: Calc ulation may not be valid for patients over 70 years Performed By: #### 2 5508, 09288, 06811, 63586 ####[facility] Glucose [Mass/Vol] 100 mg/dL Normal 70-100 [facility] Comment on above: Order Comment: No: D o not add to previous draw Performed By: #### 2 5508, 50158, 80954, 87538 ####[facility] [facility].[address] Potassium [Moles/Vol] 5.3 mmol/L High 3.5-5.1 [facility] Comment on above: Order Comment: No: D o not add to previous draw Performed By: #### 2 5508, 52263, 05134, 26194 ####[facility] [facility].[address] Sodium [Moles/Vol] 131 mmol/L Low 136-145 [facility] Comment on above: Order Comment: No: D o not add to previous draw Performed By: #### 2 5508, 89306, 84098, 71400 ####[facility] [facility].[address] Urea nitrogen [Mass/Vol] 33 mg/dL High 7-25 [facility] Comment on above: Order Comment: No: D o not add to previous draw Performed By: #### 2 5508, 77384, 43540, 12342 ####[facility] [facility] [place] [address], [facility] CBC W/DIFFon 05-28-2021 ABS IMM GRANS 0.2 10*3/uL Normal 0.0-0.2 [facility] Comment on above: Performed By: #### 5 0103 ####[facility] [place] [address], [facility] ABS NEUTROPHILS 5.6 10*3/uL Normal 1.6-7.6 [facility] Comment on above: Performed By: #### 5 0103 ####[facility] [place] [address], [facility] Basophils (Bld) [#/Vol] 0.0 10*3/uL Normal 0.0-0.2 [facility] Comment on above: Performed By: #### 5 0103 ####[facility] Basophils/100 WBC (Bld) 0.5 % Normal 0.0-1.0 [facility] Comment on above: Performed By: #### 5 0103 ####[facility] Eosinophils (Bld) [#/Vol] 0.4 10*3/uL Normal 0.0-0.5 [facility] Comment on above: Performed By: #### 5 0103 ####[facility] Eosinophils/100 WBC (Bld) 4.5 % Normal 0.0-6.0 [facility] Comment on above: Performed By: #### 5 0103 ####[facility] Erythrocyte distribution width (RBC) [Ratio] 15.6 % High 11.5-15.0 [facility] Comment on above: Performed By: #### 5 3 ####[facility] Hematocrit (Bld) [Volume fraction] 27.7 % Low 39.0-50.0 [facility] Comment on above: Performed By: #### 5 0103 ####[facility] Hemoglobin (Bld) [Mass/Vol] 8.6 g/dL Low 13.0-17.0 [facility] Comment on above: Performed By: #### 102 ####[facility] IMMATURE GRANS 1.8 % High 0.0-1.0 [facility] Comment on above: Performed By: #### 102 ####[place] [address] [address] Lymphocytes (Bld) [#/Vol] 1.8 10*3/uL Normal 1.2-4.0 [facility] Comment on above: Performed By: #### 102 ####[place] [address] [address] Lymphocytes/100 WBC (Bld) 20.4 % Normal 20.0-45.0 [facility] Comment on above: Performed By: #### 102 ####[address] MCH (RBC) [Entitic mass] 28.6 pg Normal 27.0-33.0 [facility] Comment on above: Performed By: #### 3 ####[address] MCHC (RBC) [Mass/Vol] 31.0 g/dL Low 32.0-35.0 [facility] Comment on above: Performed By: #### 3 ####[address] MCV (RBC) [Entitic vol] 92.0 fL Normal 82.0-98.0 [facility] Comment on above: Performed By: #### 102 ####[facility] [facility] [place] [address], [facility] Monocytes (Bld) [#/Vol] 0.9 10*3/uL Normal 0.1-1.0 [facility] Comment on above: Performed By: #### 102 ####[facility] [facility] [place] [address], [facility] MONOS 9.9 % Normal 5.0-12.0 [facility] Comment on above: Performed By: #### 102 ####[facility] [facility] [place] [address], [facility] Neutrophils/100 WBC (Bld) 62.9 % Normal 40.0-72.0 [facility] Comment on above: Performed By: #### 102 ####[place] [address] [facility] [place] [address], [facility] Nucleated RBC/100 WBC (Bld) [Ratio] 0 % Normal 0-0 [facility] Comment on above: Performed By: #### 102 ####[facility] [place] [address].[place] [address], [facility] PLAT CNT 387 10*3/uL Normal 150-400 [facility] Comment on above: Performed By: #### 102 ####[facility] [facility] [place] [address], [facility] RBC (Bld) [#/Vol] 3.01 10*6/uL Low 4.20-5.70 [facility] Comment on above: Performed By: #### 102 ####[facility] [place] [address].[place] [address], [facility] WBC (Bld) [#/Vol] 8.82 10*3/uL Normal 4.00-10.60 [facility] Comment on above: Performed By: #### 102 ####[facility] [place] [address], [facility] CPKon 05-28-2021 CK [Catalytic activity/Vol] 19 U/L Low 30-223 [facility] Comment on above: Performed By: #### 2 5508, 44359, 11858, 08865 ####[facility] [place] [address], [facility] MAGNESIUM BLOODon 05-28-2021 Magnesium [Mass/Vol] 1.9 mg/dL Normal 1.9-2.7 [facility] Comment on above: Order Comment: No: D o not add to previous draw Performed By: #### 2 5508, 95809, 99483, 83069 ####[facility] [facility] Operative Reporton 1 Operative Report Normal [facility] PHOSPHORUS BLOODon 1 Phosphate [Mass/Vol] 4.5 mg/dL Normal 2.5-5.0 [facility] Comment on above: Performed By: #### 2 5508, 51960, 59768, 21104 ####[facility] POC GLUCOSE LABon 05-28-2021 Glucose [Mass/Vol] 120 mg/dL High 70-100 [facility] Comment on above: Performed By: #### 8 0759 ####[facility] [place] [address], [facility] Glucose [Mass/Vol] 130 mg/dL High 70-100 [facility] Comment on above: Performed By: #### 8 4107 ####[facility] [place] [address], [facility] Glucose [Mass/Vol] 117 mg/dL High 70-100 [facility] Comment on above: Performed By: #### 8 0844 ####[facility] [place] [address], [facility] Glucose [Mass/Vol] 175 mg/dL High 70-100 [facility] Comment on above: Performed By: #### 8 5499 ####[facility] [place] [address], [place] Glucose [Mass/Vol] 107 mg/dL High 70-100 [facility] Comment on above: Performed By: #### 8 5499 ####[facility] [place] [address], [facility] BASIC METABOLIC PANELon 10-0 Calcium [Mass/Vol] 8.4 mg/dL Low 8.6-10.3 [facility] Comment on above: Order Comment: No: D o not add to previous draw Performed By: #### 0 0071, 91576, 50119 ####[facility] [place] [address], [place] Chloride [Moles/Vol] 99 mmol/L Normal 98-107 [facility] Comment on above: Order Comment: No: D o not add to previous draw Performed By: #### 0 0071, 58761, 95515 ####[facility] [place] [address], [place] CO2 [Moles/Vol] 29 mmol/L Normal 21-31 [facility] Comment on above: Order Comment: No: D o not add to previous draw Performed By: #### 0 0071, 63859, 21972 ####[facility] [place] [address], [place] Creatinine [Mass/Vol] 1.78 mg/dL High 0.70-1.30 [facility] Comment on above: Order Comment: No: D o not add to previous draw Performed By: #### 0 0071, 16917, 79633 ####[facility] [place] [address], [place] eGFR- 45 ml/min/1.73sq m Abnormal >60 [facility] Comment on above: Order Comment: No: D o not add to previous draw Result Comment: Calc ulation may not be valid for patients over 70 years Performed By: #### 0 0071, 66195, 60753 ####[facility] [place] [address], [facility] eGFR- non- 37 ml/min/1.73sq m Abnormal >60 [facility] Comment on above: Order Comment: No: D o not add to previous draw Result Comment: Calc ulation may not be valid for patients over 70 years Performed By: #### 0 0071, , 79566 ####[facility] [place] [address], [facility] Glucose [Mass/Vol] 96 mg/dL Normal 70-100 [facility] Comment on above: Order Comment: No: D o not add to previous draw Performed By: #### 0 0071, , 90177 ####[facility] [place] [address], [place] Potassium [Moles/Vol] 4.7 mmol/L Normal 3.5-5.1 [facility] Comment on above: Order Comment: No: D o not add to previous draw Performed By: #### 0 0071, , 11579 ####[facility] [place] [address], [place] Sodium [Moles/Vol] 133 mmol/L Low 136-145 [facility] Comment on above: Order Comment: No: D o not add to previous draw Performed By: #### 0 0071, , 47905 ####[facility] [place] [address], [place] Urea nitrogen [Mass/Vol] 33 mg/dL High 7-25 [facility] Comment on above: Order Comment: No: D o not add to previous draw Performed By: #### 0 0071, , 75329 ####[facility] [facility].[address] C REACTIVE PROTEINon CRP [Mass/Vol] 47.2 mg/L High 0.0-7.0 [facility] Comment on above: Order Comment: Yes: Add to Previous draw if able Performed By: #### 6 1405 ####[facility] [facility] CBC COMPLETE BLOOD COUNTon 1 Erythrocyte distribution width (RBC) [Ratio] 15.5 % High 11.5-15.0 [facility] Comment on above: Order Comment: No: D o not add to previous drawNurse draw Performed By: #### 5 6506, 72331 ####[facility] Hematocrit (Bld) [Volume fraction] 24.7 % Low 39.0-50.0 [facility] Comment on above: Order Comment: No: D o not add to previous drawNurse draw Performed By: #### 5 6506, 42350 ####[facility] [facility].[address] Hemoglobin (Bld) [Mass/Vol] 7.7 g/dL Low 13.0-17.0 [facility] Comment on above: Order Comment: No: D o not add to previous drawNurse draw Performed By: #### 5 6506, 93148 ####[facility] [facility] [place] [address], [facility] MCH (RBC) [Entitic mass] 28.5 pg Normal 27.0-33.0 [facility] Comment on above: Order Comment: No: D o not add to previous drawNurse draw Performed By: #### 5 4616, 85114 ####[facility] [facility] [place] [address], [facility] MCHC (RBC) [Mass/Vol] 31.2 g/dL Low 32.0-35.0 [facility] Comment on above: Order Comment: No: D o not add to previous drawNurse draw Performed By: #### 5 6506, 16303 ####[facility] [place] [address], [facility] MCV (RBC) [Entitic vol] 91.5 fL Normal 82.0-98.0 [facility] Comment on above: Order Comment: No: D o not add to previous drawNurse draw Performed By: #### 5 6506, 05857 ####[facility] [facility] Nucleated RBC/100 WBC (Bld) [Ratio] 0 % Normal 0-0 [facility] Comment on above: Order Comment: No: D o not add to previous drawNurse draw Performed By: #### 5 6506, 06127 ####[facility] [place] [address], [facility] PLAT CNT 332 10*3/uL Normal 150-400 [facility] Comment on above: Order Comment: No: D o not add to previous drawNurse draw Performed By: #### 5 6506, 14711 ####[facility] [place] [address], [facility] RBC (Bld) [#/Vol] 2.70 10*6/uL Low 4.20-5.70 [facility] Comment on above: Order Comment: No: D o not add to previous drawNurse draw Performed By: #### 5 6506, 61954 ####[facility] [place] [address], [facility] WBC (Bld) [#/Vol] 7.87 10*3/uL Normal 4.00-10.60 [facility] Comment on above: Order Comment: No: D o not add to previous drawNurse draw Performed By: #### 5 650, 04379 ####[facility] [facility] [place] [address], [facility] MAGNESIUM BLOODon 05-27-2021 Magnesium [Mass/Vol] 2.1 mg/dL Normal 1.9-2.7 [facility] Comment on above: Order Comment: No: D o not add to previous draw Performed By: #### 0 0071, 77442, 04595 ####[facility] [facility] [place] [address], [facility] POC GLUCOSE LABon 05-27-2021 Glucose [Mass/Vol] 134 mg/dL High 70-100 [facility] Comment on above: Performed By: #### 8 5499 ####[facility] [facility].[address] Glucose [Mass/Vol] 109 mg/dL High 70-100 [facility] Comment on above: Performed By: #### 8 5499 ####[facility] [facility].[address] Glucose [Mass/Vol] 151 mg/dL High 70-100 [facility] Comment on above: Performed By: #### 8 5499 ####[facility] [facility].[address] Glucose [Mass/Vol] 114 mg/dL High 70-100 [facility] Comment on above: Performed By: #### 8 5499 ####[facility] [facility].[address] PORTABLE CHEST 1 VIEWon PORTABLE CHEST 1 VIEW Normal [facility] Comment on above: Order Comment: evalu ate for Atelectasis RBC'S 1 UNITon 05-27-2021 CROSSMATCH INTERP 1 COMP Normal [facility] Comment on above: Performed By: #### 8 6001 ####[facility] [place] [address].[address] PRODUCT CODE 1 [id number] Normal [facility] Comment on above: Performed By: #### 8 6001 ####[facility]3000 [facility] [place] [place] [address], [facility] PRODUCT STATUS 1 PT Normal [facility] Comment on above: Result Comment: Resu lt changed by IF on 05/27/2021 11:45. The previous value was XM.Result changed by IF on 05/28/2021 00:30. The previous value was IS. Performed By: #### 8 6001 ####[facility], [place] [id number] [place] [address] UNIT ABO 1 O Normal [facility] Comment on above: Performed By: #### 8 6001 ####[facility] UNIT ID 1 [id number] Normal [facility] Comment on above: Performed By: #### 8 6001 ####[facility] UNIT RH 1 Negative Normal [facility] Comment on above: Performed By: #### 8 6001 ####[facility] [place] [address], [facility] SEDIMENTATION RATEon 021 SED RATE 48 mm/hr High 0-10 [facility] Comment on above: Performed By: #### 5 6506, 49868 ####[facility] [place] [address], [facility] VANCOMYCIN RANDOMon 05-27-20 21 VANCOMYCIN RAND 12.2 mcg/mL Normal [facility] Comment on above: Performed By: #### 0 0071, 34188, 95386 ####[facility] [place] [address], [facility] BASIC METABOLIC PANELon 10-0 Calcium [Mass/Vol] 8.2 mg/dL Low 8.6-10.3 [facility] Comment on above: Order Comment: No: D o not add to previous draw Performed By: #### 1 69, 62791 ####[facility] [place] [address], [facility] Chloride [Moles/Vol] 98 mmol/L Normal 98-107 [facility] Comment on above: Order Comment: No: D o not add to previous draw Performed By: #### 1 69, 69575 ####[facility] [place] [address], [place] CO2 [Moles/Vol] 30 mmol/L Normal 21-31 [facility] Comment on above: Order Comment: No: D o not add to previous draw Performed By: #### 1 69, 15483 ####[facility] [place] [address], [facility] Creatinine [Mass/Vol] 1.78 mg/dL High 0.70-1.30 [facility] Comment on above: Order Comment: No: D o not add to previous draw Performed By: #### 1 69, 29681 ####[facility] [place] [address], [facility] eGFR- 45 ml/min/1.73sq m Abnormal >60 [facility] Comment on above: Order Comment: No: D o not add to previous draw Result Comment: Calc ulation may not be valid for patients over 70 years Performed By: #### 1 69, 47889 ####[facility] [place] [address], [facility] eGFR- non- 37 ml/min/1.73sq m Abnormal >60 [facility] Comment on above: Order Comment: No: D o not add to previous draw Result Comment: Calc ulation may not be valid for patients over 70 years Performed By: #### 1 69, 73352 ####[facility] Glucose [Mass/Vol] 97 mg/dL Normal 70-100 [facility] Comment on above: Order Comment: No: D o not add to previous draw Performed By: #### 1 69, 94752 ####[facility] [place] [address], [facility] Potassium [Moles/Vol] 4.8 mmol/L Normal 3.5-5.1 [facility] Comment on above: Order Comment: No: D o not add to previous draw Performed By: #### 1 69, 87490 ####[facility] Sodium [Moles/Vol] 131 mmol/L Low 136-145 [facility] Comment on above: Order Comment: No: D o not add to previous draw Performed By: #### 1 69, 75030 ####[facility] Urea nitrogen [Mass/Vol] 35 mg/dL High 7-25 [facility] Comment on above: Order Comment: No: D o not add to previous draw Performed By: #### 1 69, 44755 ####[facility] CBC COMPLETE BLOOD COUNTon - Erythrocyte distribution width (RBC) [Ratio] 15.4 % High 11.5-15.0 [facility] Comment on above: Order Comment: No: D o not add to previous drawNurse draw Performed By: #### 5 0608 ####[facility] Hematocrit (Bld) [Volume fraction] 24.3 % Low 39.0-50.0 [facility] Comment on above: Order Comment: No: D o not add to previous drawNurse draw Performed By: #### 5 0608 ####[facility] Hemoglobin (Bld) [Mass/Vol] 7.9 g/dL Low 13.0-17.0 [facility] Comment on above: Order Comment: No: D o not add to previous drawNurse draw Performed By: #### 5 0608 ####[address] MCH (RBC) [Entitic mass] 28.6 pg Normal 27.0-33.0 [facility] Comment on above: Order Comment: No: D o not add to previous drawNurse draw Performed By: #### 5 0608 ####[address] MCHC (RBC) [Mass/Vol] 32.5 g/dL Normal 32.0-35.0 [facility] Comment on above: Order Comment: No: D o not add to previous drawNurse draw Performed By: #### 5 0608 ####[address] MCV (RBC) [Entitic vol] 88.0 fL Normal 82.0-98.0 [facility] Comment on above: Order Comment: No: D o not add to previous drawNurse draw Performed By: #### 5 0608 ####[address] Nucleated RBC/100 WBC (Bld) [Ratio] 0 % Normal 0-0 [facility] Comment on above: Order Comment: No: D o not add to previous drawNurse draw Performed By: #### 5 0608 ####[address] PLAT CNT 320 10*3/uL Normal 150-400 [facility] Comment on above: Order Comment: No: D o not add to previous drawNurse draw Performed By: #### 5 0608 ####[address] [place] [address], [facility] RBC (Bld) [#/Vol] 2.76 10*6/uL Low 4.20-5.70 [facility] Comment on above: Order Comment: No: D o not add to previous drawNurse draw Performed By: #### 5 0608 ####[facility] [place] [address], [facility] WBC (Bld) [#/Vol] 7.52 10*3/uL Normal 4.00-10.60 [facility] Comment on above: Order Comment: No: D o not add to previous drawNurse draw Performed By: #### 5 0608 ####[facility] [place] [address], [facility] MAGNESIUM BLOODon 05-26-2021 Magnesium [Mass/Vol] 2.1 mg/dL Normal 1.9-2.7 [facility] Comment on above: Order Comment: No: D o not add to previous draw Performed By: #### 1 0070, 61703 ####[facility] [address], [facility] POC GLUCOSE LABon 05-26-2021 Glucose [Mass/Vol] 138 mg/dL High 70-100 [facility] Comment on above: Performed By: #### 8 5499 ####[facility] [place] [address], [facility] Glucose [Mass/Vol] 119 mg/dL High 70-100 [facility] Comment on above: Performed By: #### 8 5499 ####[facility] [place] [address], [place] Glucose [Mass/Vol] 118 mg/dL High 70-100 [facility] Comment on above: Performed By: #### 8 5499 ####[facility] [place] [address], [facility] PORTABLE CHEST 1 VIEWon 10-0 1 PORTABLE CHEST 1 VIEW Normal [facility] Comment on above: Order Comment: evalu ate for Atelectasis BASIC METABOLIC PANELon Calcium [Mass/Vol] 8.1 mg/dL Low 8.6-10.3 [facility] Comment on above: Order Comment: No: D o not add to previous draw Performed By: #### 3 0953, 91332, 21826 ####[facility] [place] [address], [facility] Chloride [Moles/Vol] 95 mmol/L Low 98-107 [facility] Comment on above: Order Comment: No: D o not add to previous draw Performed By: #### 3 0953, 12113, 15747 ####[facility] [place] [address], [facility] CO2 [Moles/Vol] 27 mmol/L Normal 21-31 [facility] Comment on above: Order Comment: No: D o not add to previous draw Performed By: #### 3 0953, 20667, 95763 ####[facility] [place] [address], [facility] Creatinine [Mass/Vol] 2.13 mg/dL High 0.70-1.30 [facility] Comment on above: Order Comment: No: D o not add to previous draw Performed By: #### 3 0953, 06075, 85681 ####[facility] [place] [address], [facility] eGFR- 37 ml/min/1.73sq m Abnormal >60 [facility] Comment on above: Order Comment: No: D o not add to previous draw Result Comment: Calc ulation may not be valid for patients over 70 years Performed By: #### 3 0953, 45509, 05926 ####[facility] [place] [address], [facility] eGFR- non- 30 ml/min/1.73sq m Abnormal >60 [facility] Comment on above: Order Comment: No: D o not add to previous draw Result Comment: Calc ulation may not be valid for patients over 70 years Performed By: #### 3 0953, 33235, 97635 ####[facility] [place] [address], [place] Glucose [Mass/Vol] 122 mg/dL High 70-100 [facility] Comment on above: Order Comment: No: D o not add to previous draw Performed By: #### 3 0953, 55786, 80948 ####[facility] [address], [place] Potassium [Moles/Vol] 4.8 mmol/L Normal 3.5-5.1 [facility] Comment on above: Order Comment: No: D o not add to previous draw Performed By: #### 3 0953, 06529, 93219 ####[facility] [place] [address], [facility] Sodium [Moles/Vol] 128 mmol/L Low 136-145 [facility] Comment on above: Order Comment: No: D o not add to previous draw Performed By: #### 3 0953, 25678, 11866 ####[facility] [place] [address], [facility] Urea nitrogen [Mass/Vol] 35 mg/dL High 7-25 [facility] Comment on above: Order Comment: No: D o not add to previous draw Performed By: #### 3 0953, 87875, 70490 ####[facility] [place] [address], [facility] CBC COMPLETE BLOOD COUNTon - Erythrocyte distribution width (RBC) [Ratio] 15.8 % High 11.5-15.0 [facility] Comment on above: Order Comment: No: D o not add to previous draw Performed By: #### 5 0608 ####[facility] [facility].[address] Hematocrit (Bld) [Volume fraction] 22.3 % Low 39.0-50.0 [facility] Comment on above: Order Comment: No: D o not add to previous draw Performed By: #### 5 0608 ####[facility] Hemoglobin (Bld) [Mass/Vol] 7.3 g/dL Low 13.0-17.0 [facility] Comment on above: Order Comment: No: D o not add to previous draw Performed By: #### 5 0608 ####[address] MCH (RBC) [Entitic mass] 28.7 pg Normal 27.0-33.0 [facility] Comment on above: Order Comment: No: D o not add to previous draw Performed By: #### 5 0608 ####[facility] MCHC (RBC) [Mass/Vol] 32.7 g/dL Normal 32.0-35.0 [facility] Comment on above: Order Comment: No: D o not add to previous draw Performed By: #### 5 0608 ####[facility] [facility].[address] MCV (RBC) [Entitic vol] 87.8 fL Normal 82.0-98.0 [facility] Comment on above: Order Comment: No: D o not add to previous draw Performed By: #### 5 0608 ####[place] [address] [address] Nucleated RBC/100 WBC (Bld) [Ratio] 0 % Normal 0-0 [facility] Comment on above: Order Comment: No: D o not add to previous draw Performed By: #### 5 0608 ####[facility] [place] [address], [facility] PLAT CNT 292 10*3/uL Normal 150-400 [facility] Comment on above: Order Comment: No: D o not add to previous draw Performed By: #### 5 0608 ####[facility] [place] [address], [facility] RBC (Bld) [#/Vol] 2.54 10*6/uL Low 4.20-5.70 [facility] Comment on above: Order Comment: No: D o not add to previous draw Performed By: #### 5 0608 ####[facility] [place] [address], [facility] WBC (Bld) [#/Vol] 8.90 10*3/uL Normal 4.00-10.60 [facility] Comment on above: Order Comment: No: D o not add to previous draw Performed By: #### 5 0608 ####[facility] [place] [address], [facility] HEMATOCRITon 05-25-2021 Hematocrit (Bld) [Volume fraction] 25.1 % Low 39.0-50.0 [facility] Comment on above: Order Comment: No: D o not add to previous draw Performed By: #### 9 2088, 73859 ####[facility] [place] [address], [facility] HEMOGLOBINon 05-25-2021 Hemoglobin (Bld) [Mass/Vol] 8.4 g/dL Low 13.0-17.0 [facility] Comment on above: Order Comment: No: D o not add to previous draw Performed By: #### 9 2088, 30836 ####[facility] [place] [address], [facility] MAGNESIUM BLOODon 05-25-2021 Magnesium [Mass/Vol] 2.0 mg/dL Normal 1.9-2.7 [facility] Comment on above: Order Comment: No: D o not add to previous draw Performed By: #### 3 0953, 12938, 25088 ####[facility] [place] [address], [facility] POC GLUCOSE LABon 05-25-2021 Glucose [Mass/Vol] 136 mg/dL High 70-100 [facility] Comment on above: Performed By: #### 8 5499 ####[facility] [facility] [place] [address], [facility] Glucose [Mass/Vol] 115 mg/dL High 70-100 [facility] Comment on above: Performed By: #### 8 5499 ####[facility] [place] [address], [facility] Glucose [Mass/Vol] 72 mg/dL Normal 70-100 [facility] Comment on above: Performed By: #### 8 5499 ####[facility] [place] [address], [facility] Glucose [Mass/Vol] 154 mg/dL High 70-100 [facility] Comment on above: Performed By: #### 8 5499 ####[facility] [facility] [place] [address], [facility] PORTABLE CHEST 1 VIEWon PORTABLE CHEST 1 VIEW Normal [facility] Comment on above: Order Comment: Evalu ate for Effusion RBC'S 2 UNITSon 05-25-2021 CROSSMATCH INTERP 1 COMP Normal [facility] Comment on above: Performed By: #### 8 6002 ####[facility] [facility] [place] [address], [facility] CROSSMATCH INTERP 2 COMP Normal [facility] Comment on above: Performed By: #### 8 6002 ####[facility] [facility] [place] [address], [facility] PRODUCT CODE 1 E0686 Normal [facility] Comment on above: Performed By: #### 8 6002 ####[facility] [place] [address], [facility] PRODUCT CODE 2 E0336 Normal [facility] Comment on above: Performed By: #### 8 6002 ####[facility] [place] [address], [facility] PRODUCT STATUS 1 PT Normal [facility] Comment on above: Result Comment: Resu lt changed by IF on 05/25/2021 13:50. The previous value was XM.Result changed by IF on 05/26/2021 00:30. The previous value was IS. Performed By: #### 8 6002 ####[facility] [place] [address], [facility] PRODUCT STATUS 2 PT Normal [facility] Comment on above: Result Comment: Resu lt changed by IF on 05/25/2021 09:50. The previous value was XM.Result changed by IF on 05/26/2021 00:30. The previous value was IS. Performed By: #### 8 6002 ####[facility] [place] [address], [facility] UNIT ABO 1 O Normal [facility] Comment on above: Performed By: #### 8 6002 ####[facility] [place] [address], [facility] UNIT ABO 2 O Normal [facility] Comment on above: Performed By: #### 8 6002 ####[facility] [place] [address], [facility] UNIT ID 1 [id number] Normal [facility] Comment on above: Performed By: #### 8 6002 ####[facility] [place] [address], [facility] UNIT ID 2 [id number] Normal [facility] Comment on above: Performed By: #### 8 6002 ####[facility] [place] [address], [place] UNIT RH 1 Positive Normal [facility] Comment on above: Performed By: #### 8 6002 ####[facility] [place] [address], [place] UNIT RH 2 Positive Normal [facility] Comment on above: Performed By: #### 8 6002 ####[facility] [place] [address], [place] VANCOMYCIN TIMEDon VANCOMYCIN TIMED 24.3 mcg/mL Normal [facility] Comment on above: Performed By: #### 3 0953, 34903, 88227 ####[facility] [place] [address], [facility] BASIC METABOLIC PANELon 10-0 Calcium [Mass/Vol] 7.8 mg/dL Low 8.6-10.3 [facility] Comment on above: Order Comment: No: D o not add to previous draw Performed By: #### 0 0071, 22160, 88819, 07036 ####[facility] [place] [address], [place] Chloride [Moles/Vol] 97 mmol/L Low 98-107 [facility] Comment on above: Order Comment: No: D o not add to previous draw Performed By: #### 0 0071, 33891, 22140, 82877 ####[facility] [place] [address], [place] CO2 [Moles/Vol] 30 mmol/L Normal 21-31 [facility] Comment on above: Order Comment: No: D o not add to previous draw Performed By: #### 0 0071, 33020, 45365, 83282 ####[facility] [place] [address], [place] Creatinine [Mass/Vol] 1.70 mg/dL High 0.70-1.30 [facility] Comment on above: Order Comment: No: D o not add to previous draw Performed By: #### 0 0071, 17522, 04026, 66120 ####[facility] [place] [address], [facility] eGFR- 48 ml/min/1.73sq m Abnormal >60 [facility] Comment on above: Order Comment: No: D o not add to previous draw Result Comment: Calc ulation may not be valid for patients over 70 years Performed By: #### 0 0071, 65643, 42231, 08249 ####[facility] [place] [address], [facility] eGFR- non- 39 ml/min/1.73sq m Abnormal >60 [facility] Comment on above: Order Comment: No: D o not add to previous draw Result Comment: Calc ulation may not be valid for patients over 70 years Performed By: #### 0 0071, 48693, 13674, 59254 ####[facility] [place] [address], [facility] Glucose [Mass/Vol] 132 mg/dL High 70-100 [facility] Comment on above: Order Comment: No: D o not add to previous draw Performed By: #### 0 0071, 79634, 99946, 58202 ####[facility] [place] [address], [facility] Potassium [Moles/Vol] 5.2 mmol/L High 3.5-5.1 [facility] Comment on above: Order Comment: No: D o not add to previous draw Performed By: #### 0 0071, 94642, 48389, 40554 ####[facility] [place] [address], [place] Sodium [Moles/Vol] 131 mmol/L Low 136-145 [facility] Comment on above: Order Comment: No: D o not add to previous draw Performed By: #### 0 0071, 66549, 27315, 10234 ####[facility] [facility] Urea nitrogen [Mass/Vol] 27 mg/dL High 7-25 [facility] Comment on above: Order Comment: No: D o not add to previous draw Performed By: #### 0 0071, 81803, 93690, 12921 ####[facility] [facility] CBC COMPLETE BLOOD COUNTon Erythrocyte distribution width (RBC) [Ratio] 14.5 % Normal 11.5-15.0 [facility] Comment on above: Order Comment: No: D o not add to previous draw Performed By: #### 5 0608 ####[facility] [facility].[address] Hematocrit (Bld) [Volume fraction] 23.1 % Low 39.0-50.0 [facility] Comment on above: Order Comment: No: D o not add to previous draw Performed By: #### 5 0608 ####[facility] [facility].[address] Hemoglobin (Bld) [Mass/Vol] 7.4 g/dL Low 13.0-17.0 [facility] Comment on above: Order Comment: No: D o not add to previous draw Performed By: #### 5 0608 ####[facility] [place] [address], [facility] MCH (RBC) [Entitic mass] 28.9 pg Normal 27.0-33.0 [facility] Comment on above: Order Comment: No: D o not add to previous draw Performed By: #### 5 0608 ####[facility] [place] [address], [facility] MCHC (RBC) [Mass/Vol] 32.0 g/dL Normal 32.0-35.0 [facility] Comment on above: Order Comment: No: D o not add to previous draw Performed By: #### 5 0608 ####[facility] [place] [address], [facility] MCV (RBC) [Entitic vol] 90.2 fL Normal 82.0-98.0 [facility] Comment on above: Order Comment: No: D o not add to previous draw Performed By: #### 5 0608 ####[facility] [facility].[address] Nucleated RBC/100 WBC (Bld) [Ratio] 0 % Normal 0-0 [facility] Comment on above: Order Comment: No: D o not add to previous draw Performed By: #### 5 0608 ####[facility] [facility].[address] PLAT CNT 312 10*3/uL Normal 150-400 [facility] Comment on above: Order Comment: No: D o not add to previous draw Performed By: #### 5 0608 ####[facility] [facility].[address] RBC (Bld) [#/Vol] 2.56 10*6/uL Low 4.20-5.70 [facility] Comment on above: Order Comment: No: D o not add to previous draw Performed By: #### 5 0608 ####[facility] [facility] [place] [address], [facility] WBC (Bld) [#/Vol] 10.23 10*3/uL Normal 4.00-10.60 [facility] Comment on above: Order Comment: No: D o not add to previous draw Performed By: #### 5 0608 ####[facility] [place] [address], [place] MAGNESIUM BLOODon 05-24-2021 Magnesium [Mass/Vol] 1.8 mg/dL Low 1.9-2.7 [facility] Comment on above: Order Comment: No: D o not add to previous draw Performed By: #### 0 0071, 89982, 97374, 90506 ####[facility] [place] [address], [place] PHOSPHORUS BLOODon Phosphate [Mass/Vol] 5.0 mg/dL Normal 2.5-5.0 [facility] Comment on above: Order Comment: No: D o not add to previous draw Performed By: #### 0 0071, 84180, 86988, 55714 ####[facility] [place] [address], [place] POC GLUCOSE LABon 05-24-2021 Glucose [Mass/Vol] 156 mg/dL High 70-100 [facility] Comment on above: Performed By: #### 8 [id number] ####[facility] [place] [address], [place] Glucose [Mass/Vol] 129 mg/dL High 70-100 [facility] Comment on above: Performed By: #### 8 [id number] ####[facility] [facility] [place] [address], [place] Glucose [Mass/Vol] 188 mg/dL High 70-100 [facility] Comment on above: Performed By: #### 8 [id number] ####[facility] [place] [address], [place] Glucose [Mass/Vol] 141 mg/dL High 70-100 [facility] Comment on above: Performed By: #### 8 5499 ####[facility] [place] [address], [place] RBC'S 1 UNITon 05-24-2021 CROSSMATCH INTERP 1 COMP Normal [facility] Comment on above: Performed By: #### 8 6001 ####[facility] [facility].[address] PRODUCT CODE 1 E0332 Normal [facility] Comment on above: Performed By: #### 8 6001 ####[facility] [facility].[address] PRODUCT STATUS 1 PT Normal [facility] Comment on above: Result Comment: Resu lt changed by IF on 05/24/2021 11:33. The previous value was XM.Result changed by IF on 05/25/2021 00:30. The previous value was IS. Performed By: #### 8 [id number] ####[facility] [facility].[address] UNIT ABO 1 O Normal [facility] Comment on above: Performed By: #### 8 6001 ####[facility] [facility].[address] UNIT ID 1 [id number] Normal [facility] Comment on above: Performed By: #### 8 6001 ####[facility] [facility].[address] UNIT RH 1 Positive Normal [facility] Comment on above: Performed By: #### 8 6001 ####[facility] [facility].[address] TYPE AND SCREENon 05-24-2021 ABO INTERPRETATION O Normal [facility] Comment on above: Performed By: #### 6 2586 ####[facility] [facility].[address] RH INTERPRETATION Positive Normal [facility] Comment on above: Performed By: #### 6 2586 ####[facility] [facility].[address] VANCOMYCIN TIMEDon VANCOMYCIN TIMED 42.1 mcg/mL Normal [facility] Comment on above: Performed By: #### 0 0071, 20802, 65808, 09312 ####[facility] [facility] BASIC METABOLIC PANELon 09-3 Calcium [Mass/Vol] 8.7 mg/dL Normal 8.6-10.3 [facility] Comment on above: Order Comment: No: D o not add to previous draw Performed By: #### 4 1000, 68363, 21668 ####[facility] [place] [address], [facility] Chloride [Moles/Vol] 97 mmol/L Low 98-107 [facility] Comment on above: Order Comment: No: D o not add to previous draw Performed By: #### 4 1000, 40089, 96910 ####[facility] CO2 [Moles/Vol] 32 mmol/L High 21-31 [facility] Comment on above: Order Comment: No: D o not add to previous draw Performed By: #### 4 1000, 21881, 21145 ####[facility] [facility] [place] [address], [facility] Creatinine [Mass/Vol] 1.31 mg/dL High 0.70-1.30 [facility] Comment on above: Order Comment: No: D o not add to previous draw Performed By: #### 4 1000, 01927, 45139 ####[facility] [place] [address], [facility] eGFR- non- 53 ml/min/1.73sq m Abnormal >60 [facility] Comment on above: Order Comment: No: D o not add to previous draw Result Comment: Calc ulation may not be valid for patients over 70 years Performed By: #### 4 1000, 27643, 67767 ####[facility] [place] [address], [facility] GFR/1.73 sq M.predicted among blacks MDRD (S/P/Bld) [Vol rate/Area] mL/min/{1.73_m2} Normal >60 [facility] Comment on above: Order Comment: No: D o not add to previous draw Result Comment: Calc ulation may not be valid for patients over 70 years Performed By: #### 4 1000, 14440, 55622 ####[facility] [facility].[address] Glucose [Mass/Vol] 105 mg/dL High 70-100 [facility] Comment on above: Order Comment: No: D o not add to previous draw Performed By: #### 4 1000, 79248, 59626 ####[facility] [facility] [place] [address], [facility] Potassium [Moles/Vol] 4.0 mmol/L Normal 3.5-5.1 [facility] Comment on above: Order Comment: No: D o not add to previous draw Performed By: #### 4 1000, 79335, 47396 ####[place] [id number] [facility] [place] [address], [facility] Sodium [Moles/Vol] 133 mmol/L Low 136-145 [facility] Comment on above: Order Comment: No: D o not add to previous draw Performed By: #### 4 1000, 91813, 28612 ####[facility] [facility] [place] [address], [facility] Urea nitrogen [Mass/Vol] 24 mg/dL Normal 7-25 [facility] Comment on above: Order Comment: No: D o not add to previous draw Performed By: #### 4 1000, 20205, 72972 ####[facility] [facility] CBC COMPLETE BLOOD COUNTon 0 05-23-2021 Erythrocyte distribution width (RBC) [Ratio] 14.3 % Normal 11.5-15.0 [facility] Comment on above: Order Comment: No: D o not add to previous draw Performed By: #### 5 0608 ####[facility] Hematocrit (Bld) [Volume fraction] 29.4 % Low 39.0-50.0 [facility] Comment on above: Order Comment: No: D o not add to previous draw Performed By: #### 5 0608 ####[facility] Hemoglobin (Bld) [Mass/Vol] 9.4 g/dL Low 13.0-17.0 [facility] Comment on above: Order Comment: No: D o not add to previous draw Performed By: #### 5 0608 ####[address] MCH (RBC) [Entitic mass] 28.5 pg Normal 27.0-33.0 [facility] Comment on above: Order Comment: No: D o not add to previous draw Performed By: #### 5 0608 ####[place] [id number] MCHC (RBC) [Mass/Vol] 32.0 g/dL Normal 32.0-35.0 [facility] Comment on above: Order Comment: No: D o not add to previous draw Performed By: #### 5 0608 ####[facility] MCV (RBC) [Entitic vol] 89.1 fL Normal 82.0-98.0 [facility] Comment on above: Order Comment: No: D o not add to previous draw Performed By: #### 5 0608 ####[facility] [place] [address] Nucleated RBC/100 WBC (Bld) [Ratio] 0 % Normal 0-0 [facility] Comment on above: Order Comment: No: D o not add to previous draw Performed By: #### 5 0608 ####[facility] [place] [address], [facility] PLAT CNT 342 10*3/uL Normal 150-400 [facility] Comment on above: Order Comment: No: D o not add to previous draw Performed By: #### 5 0608 ####[facility] [place] [address], [facility] RBC (Bld) [#/Vol] 3.30 10*6/uL Low 4.20-5.70 [facility] Comment on above: Order Comment: No: D o not add to previous draw Performed By: #### 5 0608 ####[facility] [facility] [place] [address], [facility] WBC (Bld) [#/Vol] 7.22 10*3/uL Normal 4.00-10.60 [facility] Comment on above: Order Comment: No: D o not add to previous draw Performed By: #### 5 0608 ####[facility] [facility].[address] MAGNESIUM BLOODon 05-23-2021 Magnesium [Mass/Vol] 1.9 mg/dL Normal 1.9-2.7 [facility] Comment on above: Order Comment: No: D o not add to previous draw Performed By: #### 4 999, 53901, 83320 ####[facility] [place] [address], [facility] PHOSPHORUS BLOODon Phosphate [Mass/Vol] 3.4 mg/dL Normal 2.5-5.0 [facility] Comment on above: Order Comment: No: D o not add to previous draw Performed By: #### 4 999, 47491, 68190 ####[facility] [place] [address], [place] POC GLUCOSE LABon 05-23-2021 Glucose [Mass/Vol] 141 mg/dL High 70-100 [facility] Comment on above: Performed By: #### 8 5499 ####[facility] [place] [address], [place] Glucose [Mass/Vol] 147 mg/dL High 70-100 [facility] Comment on above: Performed By: #### 8 5499 ####[facility] [place] [address], [place] Glucose [Mass/Vol] 138 mg/dL High 70-100 [facility] Comment on above: Performed By: #### 8 5499 ####[facility] [place] [address], [place] Glucose [Mass/Vol] 112 mg/dL High 70-100 [facility] Comment on above: Performed By: #### 8 5499 ####[facility] [place] [address], [place] Glucose [Mass/Vol] 121 mg/dL High 70-100 [facility] Comment on above: Performed By: #### 8 5499 ####[facility] [facility] [address], [place] POC SARS COV2 ANTIGEN NEGATI VEon 05-23-2021 POC SARS COV2 ANTIGEN NEG Negative Normal NEGATIVE [facility] Comment on above: Result Comment: Nega tive [...] of clinicalsigns and symptoms consistent with COVID-19.The Zuli COVID-19 Ag Card is a lateral flow immunoassay intended forthe qualitative detection of nucleocapsid protein antigen [id number] in direct nasal swabs from individuals within [...] #### 3 1977 ####[facility] [facility] [place] [address], [facility] PORTABLE CHEST 1 VIEWon 04-26 PORTABLE CHEST 1 VIEW Normal [facility] Comment on above: Order Comment: evalu ate for Atelectasis VANCOMYCIN RANDOMon 05-23-20 VANCOMYCIN RAND 19.6 mcg/mL Normal [facility] Comment on above: Order Comment: No: D o not add to previous draw Performed By: #### 9 4980 ####[facility] [facility] [place] [address], [facility] BASIC METABOLIC PANELon 04-25 Calcium [Mass/Vol] 8.6 mg/dL Normal 8.6-10.3 [facility] Comment on above: Order Comment: No: D o not add to previous draw Performed By: #### 0 0071, 71198, 37607 ####[facility] [facility] [place] [address], [facility] Chloride [Moles/Vol] 98 mmol/L Normal 98-107 [facility] Comment on above: Order Comment: No: D o not add to previous draw Performed By: #### 0 0071, 23413, 92034 ####[facility] [facility] [place] [address], [facility] CO2 [Moles/Vol] 33 mmol/L High 21-31 [facility] Comment on above: Order Comment: No: D o not add to previous draw Performed By: #### 0 0071, 46542, 41219 ####[facility] [facility] [place] [address], [facility] Creatinine [Mass/Vol] 1.21 mg/dL Normal 0.70-1.30 [facility] Comment on above: Order Comment: No: D o not add to previous draw Performed By: #### 0 0071, 26145, 18221 ####[facility] [facility].[address] eGFR- non- 58 ml/min/1.73sq m Abnormal >60 [facility] Comment on above: Order Comment: No: D o not add to previous draw Result Comment: Calc ulation may not be valid for patients over 70 years Performed By: #### 0 0071, 17386, 95400 ####[facility] [facility].[address] GFR/1.73 sq M.predicted among blacks MDRD (S/P/Bld) [Vol rate/Area] mL/min/{1.73_m2} Normal >60 [facility] Comment on above: Order Comment: No: D o not add to previous draw Result Comment: Calc ulation may not be valid for patients over 70 years Performed By: #### 0 0071, 19066, 26799 ####[facility] [facility].[address] Glucose [Mass/Vol] 115 mg/dL High 70-100 [facility] Comment on above: Order Comment: No: D o not add to previous draw Performed By: #### 0 0071, 01075, 98204 ####[facility] [facility] [place] [address], [facility] Potassium [Moles/Vol] 3.9 mmol/L Normal 3.5-5.1 [facility] Comment on above: Order Comment: No: D o not add to previous draw Performed By: #### 0 0071, 42047, 08039 ####[facility] [facility].[address] Sodium [Moles/Vol] 135 mmol/L Low 136-145 [facility] Comment on above: Order Comment: No: D o not add to previous draw Performed By: #### 0 007, 37292, 03148 ####[facility] [facility].[address] Urea nitrogen [Mass/Vol] 22 mg/dL Normal 7-25 [facility] Comment on above: Order Comment: No: D o not add to previous draw Performed By: #### 0 70, 29364, 37361 ####[facility] CBC COMPLETE BLOOD COUNTon 0 05-22-2021 Erythrocyte distribution width (RBC) [Ratio] 14.3 % Normal 11.5-15.0 [facility] Comment on above: Order Comment: No: D o not add to previous draw Performed By: #### 5 0608 ####[facility] [facility].[address] Hematocrit (Bld) [Volume fraction] 24.7 % Low 39.0-50.0 [facility] Comment on above: Order Comment: No: D o not add to previous draw Performed By: #### 5 0608 ####[facility] [facility].[address] Hemoglobin (Bld) [Mass/Vol] 7.6 g/dL Low 13.0-17.0 [facility] Comment on above: Order Comment: No: D o not add to previous draw Performed By: #### 5 0608 ####[facility] [place] [address] MCH (RBC) [Entitic mass] 28.3 pg Normal 27.0-33.0 [facility] Comment on above: Order Comment: No: D o not add to previous draw Performed By: #### 5 0608 ####[facility] [facility].[address] MCHC (RBC) [Mass/Vol] 30.8 g/dL Low 32.0-35.0 [facility] Comment on above: Order Comment: No: D o not add to previous draw Performed By: #### 5 0608 ####[facility] MCV (RBC) [Entitic vol] 91.8 fL Normal 82.0-98.0 [facility] Comment on above: Order Comment: No: D o not add to previous draw Performed By: #### 5 0608 ####[facility] Nucleated RBC/100 WBC (Bld) [Ratio] 0 % Normal 0-0 [facility] Comment on above: Order Comment: No: D o not add to previous draw Performed By: #### 5 0608 ####[facility] PLAT CNT 313 10*3/uL Normal 150-400 [facility] Comment on above: Order Comment: No: D o not add to previous draw Performed By: #### 5 0608 ####[facility] [place] [address].[address] RBC (Bld) [#/Vol] 2.69 10*6/uL Low 4.20-5.70 [facility] Comment on above: Order Comment: No: D o not add to previous draw Performed By: #### 5 0608 ####[facility] [place] [address] WBC (Bld) [#/Vol] 7.75 10*3/uL Normal 4.00-10.60 [facility] Comment on above: Order Comment: No: D o not add to previous draw Performed By: #### 5 0608 ####[facility] [address], [facility] MAGNESIUM BLOODon 05-22-2021 Magnesium [Mass/Vol] 1.9 mg/dL Normal 1.9-2.7 [facility] Comment on above: Order Comment: No: D o not add to previous draw Performed By: #### 0 0071, 27959, 36789 ####[facility] [facility] [place] [address], [facility] Operative Reporton Operative Report Normal [facility] POC GLUCOSE LABon 05-22-2021 Glucose [Mass/Vol] 126 mg/dL High 70-100 [facility] Comment on above: Performed By: #### 8 [id number] ####[facility] [facility] [place] [address], [facility] Glucose [Mass/Vol] 136 mg/dL High 70-100 [facility] Comment on above: Performed By: #### 8 5499 ####[facility] [facility] [place] [address], [facility] Glucose [Mass/Vol] 156 mg/dL High 70-100 [facility] Comment on above: Performed By: #### 8 5499 ####[facility] [facility] [place] [address], [facility] PORTABLE CHEST 1 VIEWon 04-25 PORTABLE CHEST 1 VIEW Normal [facility] Comment on above: Order Comment: Evalu ate for Atelectasis, common RBC'S 1 UNITon 05-22-2021 CROSSMATCH INTERP 1 COMP Normal [facility] Comment on above: Performed By: #### 8 6001 ####[facility] [facility] [place] [address], [facility] PRODUCT CODE 1 E0336 Normal [facility] Comment on above: Performed By: #### 8 6001 ####[facility] [facility] [place] [address], [facility] PRODUCT STATUS 1 PT Normal [facility] Comment on above: Result Comment: Resu lt changed by IF on 05/22/2021 13:33. The previous value was XM.Result changed by IF on 05/23/2021 00:30. The previous value was IS. Performed By: #### 8 6001 ####[facility] [facility] [place] [address], [facility] UNIT ABO 1 O Normal [facility] Comment on above: Performed By: #### 8 6001 ####[facility] [facility].[address] UNIT ID 1 [id number] Normal [facility] Comment on above: Performed By: #### 8 6001 ####[facility] [facility].[address] UNIT RH 1 Positive Normal [facility] Comment on above: Performed By: #### 8 6001 ####[facility] [facility] [place] [address], [facility] RBC'S 3 UNITSon 05-22-2021 CROSSMATCH INTERP 1 COMP Normal [facility] Comment on above: Order Comment: Hemog lobin < 9 gm/dl with known cardiac or cerebrovascular disease Performed By: #### 8 6003 ####[facility] [facility] [address], [facility] CROSSMATCH INTERP 2 COMP Normal [facility] Comment on above: Order Comment: Hemog lobin < 9 gm/dl with known cardiac or cerebrovascular disease Performed By: #### 8 6003 ####[facility] [place] [address], [facility] CROSSMATCH INTERP 3 COMP Normal [facility] Comment on above: Order Comment: Hemog lobin < 9 gm/dl with known cardiac or cerebrovascular disease Performed By: #### 8 6003 ####[facility], [place] [id number] [place] [address] PRODUCT CODE 1 E0336 Normal [facility] Comment on above: Order Comment: Hemog lobin < 9 gm/dl with known cardiac or cerebrovascular disease Performed By: #### 8 6003 ####[facility], [place] [id number] [place] [address] PRODUCT CODE 2 E0685 Normal [facility] Comment on above: Order Comment: Hemog lobin < 9 gm/dl with known cardiac or cerebrovascular disease Performed By: #### 8 6003 ####[facility] PRODUCT CODE 3 E0336 Normal [facility] Comment on above: Order Comment: Hemog lobin < 9 gm/dl with known cardiac or cerebrovascular disease Performed By: #### 8 6003 ####[facility] PRODUCT STATUS 1 PT Normal [facility] Comment on above: Order Comment: Hemog lobin < 9 gm/dl with known cardiac or cerebrovascular disease Result Comment: Resu lt changed by IF on 05/22/2021 17:51. The previous value was XM.Result changed by IF on 05/23/2021 00:30. The previous value was IS. Performed By: #### 8 6003 ####[facility] [place] [address], [facility] PRODUCT STATUS 2 RE Normal [facility] Comment on above: Order Comment: Hemog lobin < 9 gm/dl with known cardiac or cerebrovascular disease Result Comment: Resu lt changed by IF on 05/24/2021 07:35. The previous value was XM. Performed By: #### 8 6003 ####[facility] [place] [address], [facility] PRODUCT STATUS 3 RE Normal [facility] Comment on above: Order Comment: Hemog lobin < 9 gm/dl with known cardiac or cerebrovascular disease Result Comment: Resu lt changed by IF on 05/24/2021 07:35. The previous value was XM. Performed By: #### 8 6003 ####[facility] UNIT ABO 1 O Normal [facility] Comment on above: Order Comment: Hemog lobin < 9 gm/dl with known cardiac or cerebrovascular disease Performed By: #### 8 6003 ####[facility] UNIT ABO 2 O Normal [facility] Comment on above: Order Comment: Hemog lobin < 9 gm/dl with known cardiac or cerebrovascular disease Performed By: #### 8 6003 ####[facility] UNIT ABO 3 O Normal [facility] Comment on above: Order Comment: Hemog lobin < 9 gm/dl with known cardiac or cerebrovascular disease Performed By: #### 8 6003 ####[facility] UNIT ID 1 [id number] Normal [facility] Comment on above: Order Comment: Hemog lobin < 9 gm/dl with known cardiac or cerebrovascular disease Performed By: #### 8 6003 ####[facility] UNIT ID 2 [id number] Normal [facility] Comment on above: Order Comment: Hemog lobin < 9 gm/dl with known cardiac or cerebrovascular disease Performed By: #### 8 6003 ####[facility] UNIT ID 3 [id number] Normal [facility] Comment on above: Order Comment: Hemog lobin < 9 gm/dl with known cardiac or cerebrovascular disease Performed By: #### 8 6003 ####[facility] [place] [address], [facility] UNIT RH 1 Negative Normal [facility] Comment on above: Order Comment: Hemog lobin < 9 gm/dl with known cardiac or cerebrovascular disease Performed By: #### 8 6003 ####[facility] [place] [address], [facility] UNIT RH 2 Positive Normal [facility] Comment on above: Order Comment: Hemog lobin < 9 gm/dl with known cardiac or cerebrovascular disease Performed By: #### 8 6003 ####[facility] [place] [address], [facility] UNIT RH 3 Positive Normal [facility] Comment on above: Order Comment: Hemog lobin < 9 gm/dl with known cardiac or cerebrovascular disease Performed By: #### 8 6003 ####[facility] VANCOMYCIN TIMEDon VANCOMYCIN TIMED 19.6 mcg/mL Normal [facility] Comment on above: Performed By: #### 0 0071, 84472, 92660 ####[facility] [facility] BASIC METABOLIC PANELon 04-25 Calcium [Mass/Vol] 8.5 mg/dL Low 8.6-10.3 [facility] Comment on above: Order Comment: No: D o not add to previous draw Performed By: #### 1 0070, 90356, 13783 ####[facility] Chloride [Moles/Vol] 96 mmol/L Low 98-107 [facility] Comment on above: Order Comment: No: D o not add to previous draw Performed By: #### 1 0070, 35300, 88513 ####[facility] [place] [address], [facility] CO2 [Moles/Vol] 37 mmol/L High 21-31 [facility] Comment on above: Order Comment: No: D o not add to previous draw Performed By: #### 1 0070, 04730, 43351 ####[facility] [place] [address], [facility] Creatinine [Mass/Vol] 0.92 mg/dL Normal 0.70-1.30 [facility] Comment on above: Order Comment: No: D o not add to previous draw Performed By: #### 1 0070, 03660, 68165 ####[facility] [place] [address], [facility] GFR/1.73 sq M.predicted among blacks MDRD (S/P/Bld) [Vol rate/Area] mL/min/{1.73_m2} Normal >60 [facility] Comment on above: Order Comment: No: D o not add to previous draw Result Comment: Calc ulation may not be valid for patients over 70 years Performed By: #### 1 0070, 46373, 01167 ####[facility] [facility] [place] [address], [facility] GFR/1.73 sq M.predicted among non-blacks MDRD (S/P/Bld) [Vol rate/Area] mL/min/{1.73_m2} Normal >60 [facility] Comment on above: Order Comment: No: D o not add to previous draw Result Comment: Calc ulation may not be valid for patients over 70 years Performed By: #### 1 0070, 03066, 34008 ####[facility] [place] [address], [facility] Glucose [Mass/Vol] 117 mg/dL High 70-100 [facility] Comment on above: Order Comment: No: D o not add to previous draw Performed By: #### 1 0070, 30744, 14712 ####[facility] [place] [address], [facility] Potassium [Moles/Vol] 3.9 mmol/L Normal 3.5-5.1 [facility] Comment on above: Order Comment: No: D o not add to previous draw Performed By: #### 1 0070, 01075, 66445 ####[facility] [place] [address], [facility] Sodium [Moles/Vol] 134 mmol/L Low 136-145 [facility] Comment on above: Order Comment: No: D o not add to previous draw Performed By: #### 1 0, 69244, 42892 ####[facility] [place] [address], [facility] Urea nitrogen [Mass/Vol] 17 mg/dL Normal 7-25 [facility] Comment on above: Order Comment: No: D o not add to previous draw Performed By: #### 1 0, 27358, 84701 ####[facility] [facility] CBC COMPLETE BLOOD COUNTon 05-21-2021 Erythrocyte distribution width (RBC) [Ratio] 14.3 % Normal 11.5-15.0 [facility] Comment on above: Order Comment: No: D o not add to previous draw Performed By: #### 5 0608 ####[facility] [place] [address], [facility] Hematocrit (Bld) [Volume fraction] 27.2 % Low 39.0-50.0 [facility] Comment on above: Order Comment: No: D o not add to previous draw Performed By: #### 5 0608 ####[facility] [place] [address], [facility] Hemoglobin (Bld) [Mass/Vol] 8.1 g/dL Low 13.0-17.0 [facility] Comment on above: Order Comment: No: D o not add to previous draw Performed By: #### 5 0608 ####[facility] MCH (RBC) [Entitic mass] 27.6 pg Normal 27.0-33.0 [facility] Comment on above: Order Comment: No: D o not add to previous draw Performed By: #### 5 0608 ####[facility] MCHC (RBC) [Mass/Vol] 29.8 g/dL Low 32.0-35.0 [facility] Comment on above: Order Comment: No: D o not add to previous draw Performed By: #### 5 0608 ####[facility] MCV (RBC) [Entitic vol] 92.8 fL Normal 82.0-98.0 [facility] Comment on above: Order Comment: No: D o not add to previous draw Performed By: #### 5 0608 ####[facility] Nucleated RBC/100 WBC (Bld) [Ratio] 0 % Normal 0-0 [facility] Comment on above: Order Comment: No: D o not add to previous draw Performed By: #### 5 0608 ####[facility] PLAT CNT 329 10*3/uL Normal 150-400 [facility] Comment on above: Order Comment: No: D o not add to previous draw Performed By: #### 5 0608 ####[facility] [place] [address] RBC (Bld) [#/Vol] 2.93 10*6/uL Low 4.20-5.70 [facility] Comment on above: Order Comment: No: D o not add to previous draw Performed By: #### 5 0608 ####[facility] [place] [address], [facility] WBC (Bld) [#/Vol] 6.21 10*3/uL Normal 4.00-10.60 [facility] Comment on above: Order Comment: No: D o not add to previous draw Performed By: #### 5 0608 ####[facility] [place] [address], [facility] MAGNESIUM BLOODon 05-21-2021 Magnesium [Mass/Vol] 2.0 mg/dL Normal 1.9-2.7 [facility] Comment on above: Order Comment: No: D o not add to previous draw Performed By: #### 1 0070, 33807, 19256 ####[facility] [facility] Operative Reporton 1 Operative Report Normal [facility] PHOSPHORUS BLOODon 1 Phosphate [Mass/Vol] 4.0 mg/dL Normal 2.5-5.0 [facility] Comment on above: Order Comment: No: D o not add to previous draw Performed By: #### 1 0070, 93696, 05545 ####[facility] [place] [address], [facility] POC GLUCOSE LABon 05-21-2021 Glucose [Mass/Vol] 143 mg/dL High 70-100 [facility] Comment on above: Performed By: #### 8 5499 ####[facility] [facility] [place] [address], [facility] Glucose [Mass/Vol] 123 mg/dL High 70-100 [facility] Comment on above: Performed By: #### 8 5499 ####[facility] [place] [address], [place] Glucose [Mass/Vol] 128 mg/dL High 70-100 [facility] Comment on above: Performed By: #### 8 5499 ####[facility] Glucose [Mass/Vol] 158 mg/dL High 70-100 [facility] Comment on above: Performed By: #### 8 5499 ####[facility] [facility].[address] PORTABLE CHEST 1 VIEWon 04-25 PORTABLE CHEST 1 VIEW Normal [facility] Comment on above: Order Comment: evalu ate for Atelectasis PROTHROMBIN TIMEon INR Coag (PPP) [Relative time] 1.12 {INR} Normal 0.91-1.16 [facility] Comment on above: Order Comment: No: [...] OF ACTION, CLINICALEFFECTIVENESS, AND OPTIMAL THERAPEUTIC RANGE. [id number];108:231S-246S. Performed By: #### 5 6101 ####[facility] [place] [address], [facility] PT Coag (PPP) [Time] 14.4 s Normal 12.3-14.8 [facility] Comment on above: Order Comment: No: D o not add to previous draw Result Comment: ALL RESULTS MUST BE INTERPRETED WITH RESPECT TO BLOOD DRAWING ARTIFACTOR DILUTION ERROR OF ANTICOAGULANT AT THE TIME OF SAMPLING. Performed By: #### 5 6101 ####[facility] [place] [address], [facility] BASIC METABOLIC PANELon 2 Calcium [Mass/Vol] 8.8 mg/dL Normal 8.6-10.3 [facility] Comment on above: Order Comment: No: D o not add to previous draw Performed By: #### 1 0070, 45241, 13978 ####[facility] [place] [address], [facility] Chloride [Moles/Vol] 96 mmol/L Low 98-107 [facility] Comment on above: Order Comment: No: D o not add to previous draw Performed By: #### 1 0070, 47200, 11087 ####[facility] [place] [address], [facility] CO2 [Moles/Vol] 33 mmol/L High 21-31 [facility] Comment on above: Order Comment: No: D o not add to previous draw Performed By: #### 1 0070, 84174, 47657 ####[facility] [place] [address], [facility] Creatinine [Mass/Vol] 0.90 mg/dL Normal 0.70-1.30 [facility] Comment on above: Order Comment: No: D o not add to previous draw Performed By: #### 1 0070, 82269, 59847 ####[facility] [place] [address], [facility] GFR/1.73 sq M.predicted among blacks MDRD (S/P/Bld) [Vol rate/Area] mL/min/{1.73_m2} Normal >60 [facility] Comment on above: Order Comment: No: D o not add to previous draw Result Comment: Calc ulation may not be valid for patients over 70 years Performed By: #### 1 0070, 86955, 65642 ####[facility] [facility] [address], [facility] GFR/1.73 sq M.predicted among non-blacks MDRD (S/P/Bld) [Vol rate/Area] mL/min/{1.73_m2} Normal >60 [facility] Comment on above: Order Comment: No: D o not add to previous draw Result Comment: Calc ulation may not be valid for patients over 70 years Performed By: #### 1 0070, 16264, 18693 ####[facility] [facility] [place] [address], [facility] Glucose [Mass/Vol] 113 mg/dL High 70-100 [facility] Comment on above: Order Comment: No: D o not add to previous draw Performed By: #### 1 0070, 55889, 47929 ####[facility] [place] [address], [facility] Potassium [Moles/Vol] 3.6 mmol/L Normal 3.5-5.1 [facility] Comment on above: Order Comment: No: D o not add to previous draw Performed By: #### 1 0, 61313, 69535 ####[facility] [place] [address], [facility] Sodium [Moles/Vol] 135 mmol/L Low 136-145 [facility] Comment on above: Order Comment: No: D o not add to previous draw Performed By: #### 1 0070, 78987, 44058 ####[facility] [place] [address], [facility] Urea nitrogen [Mass/Vol] 15 mg/dL Normal 7-25 [facility] Comment on above: Order Comment: No: D o not add to previous draw Performed By: #### 1 0070, 15370, 82884 ####[facility] CBC COMPLETE BLOOD COUNTon 05-20-2021 Erythrocyte distribution width (RBC) [Ratio] 14.1 % Normal 11.5-15.0 [facility] Comment on above: Order Comment: No: D o not add to previous draw Performed By: #### 5 0608 ####[facility] [facility].[address] Hematocrit (Bld) [Volume fraction] 28.9 % Low 39.0-50.0 [facility] Comment on above: Order Comment: No: D o not add to previous draw Performed By: #### 5 0608 ####[address] Hemoglobin (Bld) [Mass/Vol] 8.9 g/dL Low 13.0-17.0 [facility] Comment on above: Order Comment: No: D o not add to previous draw Performed By: #### 5 0608 ####[facility] [facility].[address] MCH (RBC) [Entitic mass] 28.3 pg Normal 27.0-33.0 [facility] Comment on above: Order Comment: No: D o not add to previous draw Performed By: #### 5 0608 ####[facility] [facility].[address] MCHC (RBC) [Mass/Vol] 30.8 g/dL Low 32.0-35.0 [facility] Comment on above: Order Comment: No: D o not add to previous draw Performed By: #### 5 0608 ####[address] MCV (RBC) [Entitic vol] 92.0 fL Normal 82.0-98.0 [facility] Comment on above: Order Comment: No: D o not add to previous draw Performed By: #### 5 0608 ####[facility] [facility].[address] Nucleated RBC/100 WBC (Bld) [Ratio] 0 % Normal 0-0 [facility] Comment on above: Order Comment: No: D o not add to previous draw Performed By: #### 5 0608 ####[facility] [place] [address], [facility] PLAT CNT 339 10*3/uL Normal 150-400 [facility] Comment on above: Order Comment: No: D o not add to previous draw Performed By: #### 5 0608 ####[facility] [facility] [place] [address], [facility] RBC (Bld) [#/Vol] 3.14 10*6/uL Low 4.20-5.70 [facility] Comment on above: Order Comment: No: D o not add to previous draw Performed By: #### 5 0608 ####[facility] [facility].[address] WBC (Bld) [#/Vol] 6.69 10*3/uL Normal 4.00-10.60 [facility] Comment on above: Order Comment: No: D o not add to previous draw Performed By: #### 5 0608 ####[facility] [facility].[address] Erythrocyte distribution width (RBC) [Ratio] 14.1 % Normal 11.5-15.0 [facility] Comment on above: Order Comment: No: D o not add to previous draw Performed By: #### 5 0608 ####[facility] [facility] [place] [address], [facility] Hematocrit (Bld) [Volume fraction] 29.5 % Low 39.0-50.0 [facility] Comment on above: Order Comment: No: D o not add to previous draw Performed By: #### 5 0608 ####[facility] Hemoglobin (Bld) [Mass/Vol] 9.3 g/dL Low 13.0-17.0 [facility] Comment on above: Order Comment: No: D o not add to previous draw Performed By: #### 5 0608 ####[facility] [place] [address] MCH (RBC) [Entitic mass] 28.2 pg Normal 27.0-33.0 [facility] Comment on above: Order Comment: No: D o not add to previous draw Performed By: #### 5 0608 ####[address] MCHC (RBC) [Mass/Vol] 31.5 g/dL Low 32.0-35.0 [facility] Comment on above: Order Comment: No: D o not add to previous draw Performed By: #### 5 0608 ####[address] MCV (RBC) [Entitic vol] 89.4 fL Normal 82.0-98.0 [facility] Comment on above: Order Comment: No: D o not add to previous draw Performed By: #### 5 0608 ####[address] Nucleated RBC/100 WBC (Bld) [Ratio] 0 % Normal 0-0 [facility] Comment on above: Order Comment: No: D o not add to previous draw Performed By: #### 5 0608 ####[address] PLAT CNT 338 10*3/uL Normal 150-400 [facility] Comment on above: Order Comment: No: D o not add to previous draw Performed By: #### 5 0608 ####[facility] [place] [address], [facility] RBC (Bld) [#/Vol] 3.30 10*6/uL Low 4.20-5.70 [facility] Comment on above: Order Comment: No: D o not add to previous draw Performed By: #### 5 0608 ####[facility] [place] [address], [facility] WBC (Bld) [#/Vol] 6.66 10*3/uL Normal 4.00-10.60 [facility] Comment on above: Order Comment: No: D o not add to previous draw Performed By: #### 5 0608 ####[facility] [place] [address], [facility] MAGNESIUM BLOODon 05-20-2021 Magnesium [Mass/Vol] 1.9 mg/dL Normal 1.9-2.7 [facility] Comment on above: Order Comment: No: D o not add to previous draw Performed By: #### 1 0070, 06476, 71220 ####[facility] [facility] [address], [facility] PHOSPHORUS BLOODon Phosphate [Mass/Vol] 3.7 mg/dL Normal 2.5-5.0 [facility] Comment on above: Order Comment: No: D o not add to previous draw Performed By: #### 1 0070, 77446, 18337 ####[facility] [place] [address], [facility] POC GLUCOSE LABon 05-20-2021 Glucose [Mass/Vol] 130 mg/dL High 70-100 [facility] Comment on above: Performed By: #### 8 5499 ####[facility] [place] [address], [facility] Glucose [Mass/Vol] 119 mg/dL High 70-100 [facility] Comment on above: Performed By: #### 8 5499 ####[facility] [facility] [place] [address], [facility] Glucose [Mass/Vol] 118 mg/dL High 70-100 [facility] Comment on above: Performed By: #### 8 5499 ####[facility] [place] [address], [facility] Glucose [Mass/Vol] 118 mg/dL High 70-100 [facility] Comment on above: Performed By: #### 8 5499 ####[facility] [facility] [place] [address], [facility] Glucose [Mass/Vol] 119 mg/dL High 70-100 [facility] Comment on above: Performed By: #### 8 5499 ####[facility] [facility].[address] PROTHROMBIN TIMEon 1 INR Coag (PPP) [Relative time] 1.09 {INR} Normal 0.91-1.16 [facility] Comment on above: Order Comment: [...] OF ACTION, CLINICALEFFECTIVENESS, AND OPTIMAL THERAPEUTIC RANGE. [id number];108:231S-246S. Performed By: #### 5 6101 ####[facility] PT Coag (PPP) [Time] 14.1 s Normal 12.3-14.8 [facility] Comment on above: Order Comment: No: D o not add to previous draw Result Comment: ALL RESULTS MUST BE INTERPRETED WITH RESPECT TO BLOOD DRAWING ARTIFACTOR DILUTION ERROR OF ANTICOAGULANT AT THE TIME OF SAMPLING. Performed By: #### 5 6101 ####[facility] TYPE AND SCREENon 05-20-2021 ABO INTERPRETATION O Normal [facility] Comment on above: Performed By: #### 6 2586 ####[facility] [facility].[address] RH INTERPRETATION Positive Normal [facility] Comment on above: Performed By: #### 6 2586 ####[facility] [facility].[address] *MRSA/MSSA DNA NASALon 05-19 *MRSA/MSSA DNA NASAL Clinical Report: (D ) Specimen: NASAL SWAB Collected: 05/19/2021 10:27 Status: Final Last Updated: 05/19/2021 15:02 MSSA DNA (Final) Negative MRSA DNA (Final) Negative Normal [facility] Comment on above: Performed By: #### 3 1595 ####[facility] CBC W/DIFFon 05-19-2021 ABS IMM GRANS 0.0 10*3/uL Normal 0.0-0.2 [facility] Comment on above: Order Comment: No: D o not add to previous draw Performed By: #### 5 0103 ####[facility] ABS NEUTROPHILS 4.3 10*3/uL Normal 1.6-7.6 [facility] Comment on above: Order Comment: No: D o not add to previous draw Performed By: #### 5 0103 ####[facility] [facility] [address], [facility] Basophils (Bld) [#/Vol] 0.0 10*3/uL Normal 0.0-0.2 [facility] Comment on above: Order Comment: No: D o not add to previous draw Performed By: #### 5 0103 ####[facility] [place] [address], [facility] Basophils/100 WBC (Bld) 0.5 % Normal 0.0-1.0 [facility] Comment on above: Order Comment: No: D o not add to previous draw Performed By: #### 5 0103 ####[facility] [facility] [address], [facility] Eosinophils (Bld) [#/Vol] 0.2 10*3/uL Normal 0.0-0.5 [facility] Comment on above: Order Comment: No: D o not add to previous draw Performed By: #### 5 0103 ####[facility] [facility] [place] [address], [facility] Eosinophils/100 WBC (Bld) 3.1 % Normal 0.0-6.0 [facility] Comment on above: Order Comment: No: D o not add to previous draw Performed By: #### 5 0103 ####[facility] [place] [address], [facility] Erythrocyte distribution width (RBC) [Ratio] 14.2 % Normal 11.5-15.0 [facility] Comment on above: Order Comment: No: D o not add to previous draw Performed By: #### 5 3 ####[facility] [facility] Hematocrit (Bld) [Volume fraction] 29.0 % Low 39.0-50.0 [facility] Comment on above: Order Comment: No: D o not add to previous draw Performed By: #### 5 0103 ####[facility] Hemoglobin (Bld) [Mass/Vol] 9.2 g/dL Low 13.0-17.0 [facility] Comment on above: Order Comment: No: D o not add to previous draw Performed By: #### 5 0103 ####[facility] IMMATURE GRANS 0.5 % Normal 0.0-1.0 [facility] Comment on above: Order Comment: No: D o not add to previous draw Performed By: #### 5 0103 ####[facility] Lymphocytes (Bld) [#/Vol] 1.0 10*3/uL Low 1.2-4.0 [facility] Comment on above: Order Comment: No: D o not add to previous draw Performed By: #### 5 0103 ####[facility] Lymphocytes/100 WBC (Bld) 15.9 % Low 20.0-45.0 [facility] Comment on above: Order Comment: No: D o not add to previous draw Performed By: #### 5 0103 ####[facility] MCH (RBC) [Entitic mass] 28.5 pg Normal 27.0-33.0 [facility] Comment on above: Order Comment: No: D o not add to previous draw Performed By: #### 5 3 ####[facility] [place] [address], [place] MCHC (RBC) [Mass/Vol] 31.7 g/dL Low 32.0-35.0 [facility] Comment on above: Order Comment: No: D o not add to previous draw Performed By: #### 5 0103 ####[facility] [place] [address], [facility] MCV (RBC) [Entitic vol] 89.8 fL Normal 82.0-98.0 [facility] Comment on above: Order Comment: No: D o not add to previous draw Performed By: #### 5 0103 ####[facility] Monocytes (Bld) [#/Vol] 0.6 10*3/uL Normal 0.1-1.0 [facility] Comment on above: Order Comment: No: D o not add to previous draw Performed By: #### 5 0103 ####[facility] MONOS 10.2 % Normal 5.0-12.0 [facility] Comment on above: Order Comment: No: D o not add to previous draw Performed By: #### 5 0103 ####[facility] Neutrophils/100 WBC (Bld) 69.8 % Normal 40.0-72.0 [facility] Comment on above: Order Comment: No: D o not add to previous draw Performed By: #### 5 0103 ####[facility] Nucleated RBC/100 WBC (Bld) [Ratio] 0 % Normal 0-0 [facility] Comment on above: Order Comment: No: D o not add to previous draw Performed By: #### 5 0103 ####[facility] [place] [address], [facility] PLAT CNT 294 10*3/uL Normal 150-400 [facility] Comment on above: Order Comment: No: D o not add to previous draw Performed By: #### 5 0103 ####[facility] [place] [address], [facility] RBC (Bld) [#/Vol] 3.23 10*6/uL Low 4.20-5.70 [facility] Comment on above: Order Comment: No: D o not add to previous draw Performed By: #### 5 0103 ####[facility] [place] [address], [facility] WBC (Bld) [#/Vol] 6.09 10*3/uL Normal 4.00-10.60 [facility] Comment on above: Order Comment: No: D o not add to previous draw Performed By: #### 5 0103 ####[facility] COMP METABOLIC PANELon 05-19 Albumin [Mass/Vol] 2.8 g/dL Low 3.5-5.7 [facility] Comment on above: Order Comment: No: D o not add to previous draw Performed By: #### 4 1000, 64933, 64613 ####[facility] ALKALINE PHOSPH 59 IU/L Normal 34-104 [facility] Comment on above: Order Comment: No: D o not add to previous draw Performed By: #### 4 1000, 44949, 00641 ####[facility] ALT [Catalytic activity/Vol] 9 U/L Normal 7-52 [facility] Comment on above: Order Comment: No: D o not add to previous draw Performed By: #### 4 1000, 69385, 70890 ####[facility] [place] [address], [facility] AST [Catalytic activity/Vol] 20 U/L Normal 13-39 [facility] Comment on above: Order Comment: No: D o not add to previous draw Performed By: #### 4 1000, 90662, 15050 ####[facility] [place] [address], [place] Bilirubin [Mass/Vol] 0.6 mg/dL Normal 0.3-1.0 [facility] Comment on above: Order Comment: No: D o not add to previous draw Performed By: #### 4 1000, 82612, 25326 ####[facility] [place] [address], [place] Calcium [Mass/Vol] 8.5 mg/dL Low 8.6-10.3 [facility] Comment on above: Order Comment: No: D o not add to previous draw Performed By: #### 4 1000, 73412, 05495 ####[facility] [place] [address], [place] Chloride [Moles/Vol] 98 mmol/L Normal 98-107 [facility] Comment on above: Order Comment: No: D o not add to previous draw Performed By: #### 4 1000, 07287, 14385 ####[facility] [place] [address], [place] CO2 [Moles/Vol] 31 mmol/L Normal 21-31 [facility] Comment on above: Order Comment: No: D o not add to previous draw Performed By: #### 4 1000, 71336, 28407 ####[facility] [place] [address], [place] Creatinine [Mass/Vol] 0.74 mg/dL Normal 0.70-1.30 [facility] Comment on above: Order Comment: No: D o not add to previous draw Performed By: #### 4 1000, 89627, 29092 ####[facility] [place] [address], [facility] GFR/1.73 sq M.predicted among blacks MDRD (S/P/Bld) [Vol rate/Area] mL/min/{1.73_m2} Normal >60 [facility] Comment on above: Order Comment: No: D o not add to previous draw Result Comment: Calc ulation may not be valid for patients over 70 years Performed By: #### 4 1000, 46981, 78418 ####[facility] [facility] [place] [address], [facility] GFR/1.73 sq M.predicted among non-blacks MDRD (S/P/Bld) [Vol rate/Area] mL/min/{1.73_m2} Normal >60 [facility] Comment on above: Order Comment: No: D o not add to previous draw Result Comment: Calc ulation may not be valid for patients over 70 years Performed By: #### 4 1000, 08376, 10793 ####[place] [address] [facility] [place] [address], [facility] Glucose [Mass/Vol] 143 mg/dL High 70-100 [facility] Comment on above: Order Comment: No: D o not add to previous draw Performed By: #### 4 1000, 80004, 06615 ####[place] [address] [facility] [place] [address], [place] Potassium [Moles/Vol] 3.4 mmol/L Low 3.5-5.1 [facility] Comment on above: Order Comment: No: D o not add to previous draw Performed By: #### 4 1000, 79696, 54743 ####[facility] [facility] [address], [place] Protein [Mass/Vol] 6.7 g/dL Normal 6.0-8.3 [facility] Comment on above: Order Comment: No: D o not add to previous draw Performed By: #### 4 1000, 79109, 19306 ####[facility] [place] [address], [facility] Sodium [Moles/Vol] 134 mmol/L Low 136-145 [facility] Comment on above: Order Comment: No: D o not add to previous draw Performed By: #### 4 1000, 88605, 53963 ####[facility] [place] [address], [facility] Urea nitrogen [Mass/Vol] 14 mg/dL Normal 7-25 [facility] Comment on above: Order Comment: No: D o not add to previous draw Performed By: #### 4 1000, 34531, 12687 ####[facility] [place] [address], [facility] MAGNESIUM BLOODon 05-19-2021 Magnesium [Mass/Vol] 1.9 mg/dL Normal 1.9-2.7 [facility] Comment on above: Order Comment: No: D o not add to previous draw Performed By: #### 4 1000, 28299, 70536 ####[facility] [place] [address], [facility] PHOSPHORUS BLOODon Phosphate [Mass/Vol] 3.1 mg/dL Normal 2.5-5.0 [facility] Comment on above: Order Comment: No: D o not add to previous draw Performed By: #### 4 1000, 05394, 31885 ####[facility] [id number], [facility] POC GLUCOSE LABon 05-19-2021 Glucose [Mass/Vol] 124 mg/dL High 70-100 [facility] Comment on above: Performed By: #### 8 5499 ####[facility] [place] [address], [facility] Glucose [Mass/Vol] 132 mg/dL High 70-100 [facility] Comment on above: Performed By: #### 8 5499 ####[facility] [place] [address], [facility] Glucose [Mass/Vol] 153 mg/dL High 70-100 [facility] Comment on above: Performed By: #### 8 5499 ####[facility] [facility] [place] [address], [facility] Glucose [Mass/Vol] 133 mg/dL High 70-100 [facility] Comment on above: Performed By: #### 8 5499 ####[facility]3000 [facility].[address] POC SARS COV2 ANTIGEN NEGATI VEon 05-19-2021 POC SARS COV2 ANTIGEN NEG Negative Normal NEGATIVE [facility] Comment on above: Result Comment: Nega tive [...] of clinicalsigns and symptoms consistent with COVID-19.The Zuli COVID-19 Ag Card is a lateral flow immunoassay intended forthe qualitative detection of nucleocapsid protein antigen [id number] in direct nasal swabs from individuals within [...] #### 3 1976 ####[facility] [place] [address], [facility] VANCOMYCIN TIMEDon 1 VANCOMYCIN TIMED 16.3 mcg/mL Normal [facility] Comment on above: Performed By: #### 3 0953 ####[facility] [place] [address], [facility] CBC W/DIFFon 05-18-2021 ABS IMM GRANS 0.0 10*3/uL Normal 0.0-0.2 [facility] Comment on above: Order Comment: No: D o not add to previous draw Performed By: #### 5 0103 ####[facility] [place] [address], [facility] ABS NEUTROPHILS 5.1 10*3/uL Normal 1.6-7.6 [facility] Comment on above: Order Comment: No: D o not add to previous draw Performed By: #### 5 0103 ####[facility] [place] [address], [facility] Basophils (Bld) [#/Vol] 0.0 10*3/uL Normal 0.0-0.2 [facility] Comment on above: Order Comment: No: D o not add to previous draw Performed By: #### 5 0103 ####[facility] [place] [address], [facility] Basophils/100 WBC (Bld) 0.4 % Normal 0.0-1.0 [facility] Comment on above: Order Comment: No: D o not add to previous draw Performed By: #### 5 0103 ####[facility] [place] [address], [facility] Eosinophils (Bld) [#/Vol] 0.2 10*3/uL Normal 0.0-0.5 [facility] Comment on above: Order Comment: No: D o not add to previous draw Performed By: #### 5 0103 ####[facility] [place] [address], [facility] Eosinophils/100 WBC (Bld) 2.6 % Normal 0.0-6.0 [facility] Comment on above: Order Comment: No: D o not add to previous draw Performed By: #### 5 0103 ####[facility] Erythrocyte distribution width (RBC) [Ratio] 14.1 % Normal 11.5-15.0 [facility] Comment on above: Order Comment: No: D o not add to previous draw Performed By: #### 5 0103 ####[facility] Hematocrit (Bld) [Volume fraction] 27.5 % Low 39.0-50.0 [facility] Comment on above: Order Comment: No: D o not add to previous draw Performed By: #### 5 0103 ####[facility] Hemoglobin (Bld) [Mass/Vol] 8.6 g/dL Low 13.0-17.0 [facility] Comment on above: Order Comment: No: D o not add to previous draw Performed By: #### 5 0103 ####[facility] IMMATURE GRANS 0.1 % Normal 0.0-1.0 [facility] Comment on above: Order Comment: No: D o not add to previous draw Performed By: #### 5 0103 ####[address] Lymphocytes (Bld) [#/Vol] 1.3 10*3/uL Normal 1.2-4.0 [facility] Comment on above: Order Comment: No: D o not add to previous draw Performed By: #### 5 0103 ####[facility] [place] [address] Lymphocytes/100 WBC (Bld) 18.0 % Low 20.0-45.0 [facility] Comment on above: Order Comment: No: D o not add to previous draw Performed By: #### 5 0103 ####[facility] MCH (RBC) [Entitic mass] 28.7 pg Normal 27.0-33.0 [facility] Comment on above: Order Comment: No: D o not add to previous draw Performed By: #### 5 0103 ####[facility] MCHC (RBC) [Mass/Vol] 31.3 g/dL Low 32.0-35.0 [facility] Comment on above: Order Comment: No: D o not add to previous draw Performed By: #### 5 0103 ####[facility] MCV (RBC) [Entitic vol] 91.7 fL Normal 82.0-98.0 [facility] Comment on above: Order Comment: No: D o not add to previous draw Performed By: #### 5 0103 ####[facility] Monocytes (Bld) [#/Vol] 0.7 10*3/uL Normal 0.1-1.0 [facility] Comment on above: Order Comment: No: D o not add to previous draw Performed By: #### 5 0103 ####[facility] MONOS 10.0 % Normal 5.0-12.0 [facility] Comment on above: Order Comment: No: D o not add to previous draw Performed By: #### 5 0103 ####[facility] [place] [address] Neutrophils/100 WBC (Bld) 68.9 % Normal 40.0-72.0 [facility] Comment on above: Order Comment: No: D o not add to previous draw Performed By: #### 5 0103 ####[facility] Nucleated RBC/100 WBC (Bld) [Ratio] 0 % Normal 0-0 [facility] Comment on above: Order Comment: No: D o not add to previous draw Performed By: #### 5 0103 ####[facility] [place] [address], [facility] PLAT CNT 288 10*3/uL Normal 150-400 [facility] Comment on above: Order Comment: No: D o not add to previous draw Performed By: #### 5 0103 ####[facility]3000 [facility].[address] RBC (Bld) [#/Vol] 3.00 10*6/uL Low 4.20-5.70 [facility] Comment on above: Order Comment: No: D o not add to previous draw Performed By: #### 5 0103 ####[facility] [facility] WBC (Bld) [#/Vol] 7.40 10*3/uL Normal 4.00-10.60 [facility] Comment on above: Order Comment: No: D o not add to previous draw Performed By: #### 5 0103 ####[facility] [facility] COMP METABOLIC PANELon 05-18 Albumin [Mass/Vol] 2.7 g/dL Low 3.5-5.7 [facility] Comment on above: Order Comment: No: D o not add to previous draw Performed By: #### 4 1000, 16535, 71902, 30692 ####[facility]3000 [facility] [address], [facility] ALKALINE PHOSPH 62 IU/L Normal 34-104 [facility] Comment on above: Order Comment: No: D o not add to previous draw Performed By: #### 4 1000, 66972, 18741, 93403 ####[facility] [place] [address], [place] ALT [Catalytic activity/Vol] 11 U/L Normal 7-52 [facility] Comment on above: Order Comment: No: D o not add to previous draw Performed By: #### 4 1000, 79274, 53136, 40705 ####[facility] [place] [address], [place] AST [Catalytic activity/Vol] 31 U/L Normal 13-39 [facility] Comment on above: Order Comment: No: D o not add to previous draw Performed By: #### 4 1000, 79394, 19663, 22716 ####[facility] [place] [address], [place] Bilirubin [Mass/Vol] 0.8 mg/dL Normal 0.3-1.0 [facility] Comment on above: Order Comment: No: D o not add to previous draw Performed By: #### 4 1000, 63673, 06716, 87032 ####[facility] [place] [address], [place] Calcium [Mass/Vol] 8.0 mg/dL Low 8.6-10.3 [facility] Comment on above: Order Comment: No: D o not add to previous draw Performed By: #### 4 1000, 09263, 31465, 77551 ####[facility] [place] [address], [place] Chloride [Moles/Vol] 98 mmol/L Normal 98-107 [facility] Comment on above: Order Comment: No: D o not add to previous draw Performed By: #### 4 1000, 59812, 82244, 34239 ####[facility] [place] [address], [place] CO2 [Moles/Vol] 33 mmol/L High 21-31 [facility] Comment on above: Order Comment: No: D o not add to previous draw Performed By: #### 4 1000, 57927, 69350, 47143 ####[facility] [place] [address], [place] Creatinine [Mass/Vol] 0.89 mg/dL Normal 0.70-1.30 [facility] Comment on above: Order Comment: No: D o not add to previous draw Performed By: #### 4 1000, 77916, 90823, 85107 ####[facility] [place] [address], [place] GFR/1.73 sq M.predicted among blacks MDRD (S/P/Bld) [Vol rate/Area] mL/min/{1.73_m2} Normal >60 [facility] Comment on above: Order Comment: No: D o not add to previous draw Result Comment: Calc ulation may not be valid for patients over 70 years Performed By: #### 4 1000, 50614, 19555, 38333 ####[facility] [place] [address], [place] GFR/1.73 sq M.predicted among non-blacks MDRD (S/P/Bld) [Vol rate/Area] mL/min/{1.73_m2} Normal >60 [facility] Comment on above: Order Comment: No: D o not add to previous draw Result Comment: Calc ulation may not be valid for patients over 70 years Performed By: #### 4 1000, 57233, 46072, 82572 ####[facility] [place] [address], [place] Glucose [Mass/Vol] 108 mg/dL High 70-100 [facility] Comment on above: Order Comment: No: D o not add to previous draw Performed By: #### 4 1000, 14898, 31185, 51966 ####[facility] [place] [address], [place] Potassium [Moles/Vol] 3.7 mmol/L Normal 3.5-5.1 [facility] Comment on above: Order Comment: No: D o not add to previous draw Performed By: #### 4 1000, 71813, 27235, 47688 ####[facility] [address], [facility] Protein [Mass/Vol] 6.6 g/dL Normal 6.0-8.3 [facility] Comment on above: Order Comment: No: D o not add to previous draw Performed By: #### 4 1000, 28091, 50343, 68136 ####[facility] [place] [address], [facility] Sodium [Moles/Vol] 136 mmol/L Normal 136-145 [facility] Comment on above: Order Comment: No: D o not add to previous draw Performed By: #### 4 1000, 28188, 31243, 17046 ####[facility] [place] [address], [facility] Urea nitrogen [Mass/Vol] 16 mg/dL Normal 7-25 [facility] Comment on above: Order Comment: No: D o not add to previous draw Performed By: #### 4 1000, 81487, 57309, 49494 ####[facility] [place] [address], [facility] MAGNESIUM BLOODon 05-18-2021 Magnesium [Mass/Vol] 1.9 mg/dL Normal 1.9-2.7 [facility] Comment on above: Order Comment: No: D o not add to previous draw Performed By: #### 4 1000, 67731, 05782, 75521 ####[facility] [id number], [facility] PHOSPHORUS BLOODon Phosphate [Mass/Vol] 4.2 mg/dL Normal 2.5-5.0 [facility] Comment on above: Order Comment: No: D o not add to previous draw Performed By: #### 4 1000, 35309, 12852, 24190 ####[facility] [facility] [place] [address], [facility] POC GLUCOSE LABon 05-18-2021 Glucose [Mass/Vol] 152 mg/dL High 70-100 [facility] Comment on above: Performed By: #### 8 5499 ####[facility] [facility] [place] [address], [facility] Glucose [Mass/Vol] 140 mg/dL High 70-100 [facility] Comment on above: Performed By: #### 8 5499 ####[facility] Glucose [Mass/Vol] 202 mg/dL High 70-100 [facility] Comment on above: Performed By: #### 8 5499 ####[facility] Glucose [Mass/Vol] 121 mg/dL High 70-100 [facility] Comment on above: Performed By: #### 8 5499 ####[facility] PORTABLE CHEST 1 VIEWon 04-25 PORTABLE CHEST 1 VIEW Normal [facility] Comment on above: Order Comment: EValu ate for Effusion VANCOMYCIN TIMEDon VANCOMYCIN TIMED 10.2 mcg/mL Normal [facility] Comment on above: Performed By: #### 4 1000, 68895, 67605, 58485 ####[facility] CBC W/DIFFon 05-17-2021 ABS IMM GRANS 0.0 10*3/uL Normal 0.0-0.2 [facility] Comment on above: Order Comment: No: D o not add to previous draw Performed By: #### 5 0103 ####[facility] [facility] [place] [address], [facility] ABS NEUTROPHILS 3.6 10*3/uL Normal 1.6-7.6 [facility] Comment on above: Order Comment: No: D o not add to previous draw Performed By: #### 5 0103 ####[facility] [facility] [address], [facility] Basophils (Bld) [#/Vol] 0.1 10*3/uL Normal 0.0-0.2 [facility] Comment on above: Order Comment: No: D o not add to previous draw Performed By: #### 5 0103 ####[facility] [facility] [place] [address], [facility] Basophils/100 WBC (Bld) 0.9 % Normal 0.0-1.0 [facility] Comment on above: Order Comment: No: D o not add to previous draw Performed By: #### 5 0103 ####[facility] [place] [address], [facility] Eosinophils (Bld) [#/Vol] 0.1 10*3/uL Normal 0.0-0.5 [facility] Comment on above: Order Comment: No: D o not add to previous draw Performed By: #### 5 0103 ####[facility] [facility] [place] [address], [facility] Eosinophils/100 WBC (Bld) 0.9 % Normal 0.0-6.0 The [facility] Comment on above: Order Comment: No: D o not add to previous draw Performed By: #### 5 0103 ####[facility] [facility] [place] [address], [facility] Erythrocyte distribution width (RBC) [Ratio] 14.6 % Normal 11.5-15.0 The [facility] Comment on above: Order Comment: No: D o not add to previous draw Performed By: #### 5 0103 ####[facility] Hematocrit (Bld) [Volume fraction] 27.7 % Low 39.0-50.0 The [facility] Comment on above: Order Comment: No: D o not add to previous draw Performed By: #### 5 3 ####[facility] Hemoglobin (Bld) [Mass/Vol] 8.5 g/dL Low 13.0-17.0 The [facility] Comment on above: Order Comment: No: D o not add to previous draw Performed By: #### 5 3 ####[facility] IMMATURE GRANS 0.5 % Normal 0.0-1.0 The [facility] Comment on above: Order Comment: No: D o not add to previous draw Performed By: #### 5 3 ####[facility] Lymphocytes (Bld) [#/Vol] 1.4 10*3/uL Normal 1.2-4.0 The [facility] Comment on above: Order Comment: No: D o not add to previous draw Performed By: #### 5 3 ####[facility] Lymphocytes/100 WBC (Bld) 23.3 % Normal 20.0-45.0 The [facility] Comment on above: Order Comment: No: D o not add to previous draw Performed By: #### 5 3 ####[facility] [place] [address], [facility] MCH (RBC) [Entitic mass] 28.4 pg Normal 27.0-33.0 The [facility] Comment on above: Order Comment: No: D o not add to previous draw Performed By: #### 5 3 ####[facility] [facility].[address] MCHC (RBC) [Mass/Vol] 30.7 g/dL Low 32.0-35.0 The [facility] Comment on above: Order Comment: No: D o not add to previous draw Performed By: #### 5 0103 ####[facility] [facility] [place] [address], [facility] MCV (RBC) [Entitic vol] 92.6 fL Normal 82.0-98.0 The [facility] Comment on above: Order Comment: No: D o not add to previous draw Performed By: #### 5 0103 ####[address] Monocytes (Bld) [#/Vol] 0.7 10*3/uL Normal 0.1-1.0 The [facility] Comment on above: Order Comment: No: D o not add to previous draw Performed By: #### 5 0103 ####[facility] MONOS 11.7 % Normal 5.0-12.0 The [facility] Comment on above: Order Comment: No: D o not add to previous draw Performed By: #### 5 3 ####[facility] Neutrophils/100 WBC (Bld) 62.7 % Normal 40.0-72.0 The [facility] Comment on above: Order Comment: No: D o not add to previous draw Performed By: #### 5 0103 ####[address] [place] [address] [place] [address], [facility] Nucleated RBC/100 WBC (Bld) [Ratio] 0 % Normal 0-0 The [facility] Comment on above: Order Comment: No: D o not add to previous draw Performed By: #### 5 0103 ####[facility] [facility].[address] PLAT CNT 325 10*3/uL Normal 150-400 The [facility] Comment on above: Order Comment: No: D o not add to previous draw Performed By: #### 5 0103 ####[facility] [facility] [place] [address], [facility] RBC (Bld) [#/Vol] 2.99 10*6/uL Low 4.20-5.70 The [facility] Comment on above: Order Comment: No: D o not add to previous draw Performed By: #### 5 0103 ####[facility] [facility] [place] [address], [facility] WBC (Bld) [#/Vol] 5.79 10*3/uL Normal 4.00-10.60 The [facility] Comment on above: Order Comment: No: D o not add to previous draw Performed By: #### 5 0103 ####[facility] COMP METABOLIC PANELon 05-17 Albumin [Mass/Vol] 2.8 g/dL Low 3.5-5.7 The [facility] Comment on above: Order Comment: No: D o not add to previous draw Performed By: #### 4 1000, 52911, 34312 ####[place] [address] [facility].[address] ALKALINE PHOSPH 55 IU/L Normal 34-104 The [facility] Comment on above: Order Comment: No: D o not add to previous draw Performed By: #### 4 1000, 46259, 69440 ####[facility] [facility].[address] ALT [Catalytic activity/Vol] 7 U/L Normal 7-52 [facility] Comment on above: Order Comment: No: D o not add to previous draw Performed By: #### 4 1000, 42176, 54172 ####[facility] [place] [address], [place] AST [Catalytic activity/Vol] 11 U/L Low 13-39 The [facility] Comment on above: Order Comment: No: D o not add to previous draw Performed By: #### 4 1000, 61978, 37990 ####[facility] [place] [address], [place] Bilirubin [Mass/Vol] 0.6 mg/dL Normal 0.3-1.0 The [facility] Comment on above: Order Comment: No: D o not add to previous draw Performed By: #### 4 1000, 93029, 55950 ####[facility] [place] [address], [place] Calcium [Mass/Vol] 8.2 mg/dL Low 8.6-10.3 The [facility] Comment on above: Order Comment: No: D o not add to previous draw Performed By: #### 4 1000, 76288, 43137 ####[facility] [place] [address], [place] Chloride [Moles/Vol] 102 mmol/L Normal 98-107 The [facility] Comment on above: Order Comment: No: D o not add to previous draw Performed By: #### 4 1000, 84372, 78190 ####[facility] [place] [address], [place] CO2 [Moles/Vol] 31 mmol/L Normal 21-31 The [facility] Comment on above: Order Comment: No: D o not add to previous draw Performed By: #### 4 1000, 42146, 24271 ####[facility] [place] [address], [place] Creatinine [Mass/Vol] 1.19 mg/dL Normal 0.70-1.30 The [facility] Comment on above: Order Comment: No: D o not add to previous draw Performed By: #### 4 1000, 05486, 67903 ####[facility] [place] [address], [facility] eGFR- non- 59 ml/min/1.73sq m Abnormal >60 The [facility] Comment on above: Order Comment: No: D o not add to previous draw Result Comment: Calc ulation may not be valid for patients over 70 years Performed By: #### 4 1000, 03100, 65417 ####[facility] [place] [address], [facility] GFR/1.73 sq M.predicted among blacks MDRD (S/P/Bld) [Vol rate/Area] mL/min/{1.73_m2} Normal >60 The [facility] Comment on above: Order Comment: No: D o not add to previous draw Result Comment: Calc ulation may not be valid for patients over 70 years Performed By: #### 4 1000, 63153, 61087 ####[facility] [place] [address], [place] Glucose [Mass/Vol] 99 mg/dL Normal 70-100 The [facility] Comment on above: Order Comment: No: D o not add to previous draw Performed By: #### 4 1000, 00896, 29962 ####[facility] [place] [address], [place] Potassium [Moles/Vol] 3.7 mmol/L Normal 3.5-5.1 The [facility] Comment on above: Order Comment: No: D o not add to previous draw Performed By: #### 4 1000, 74032, 60817 ####[facility] [place] [address], [place] Protein [Mass/Vol] 6.6 g/dL Normal 6.0-8.3 The [facility] Comment on above: Order Comment: No: D o not add to previous draw Performed By: #### 4 1000, 37708, 74976 ####[facility] [place] [address], [facility] Sodium [Moles/Vol] 138 mmol/L Normal 136-145 The [facility] Comment on above: Order Comment: No: D o not add to previous draw Performed By: #### 4 1000, 99990, 72049 ####[facility] [place] [address], [place] Urea nitrogen [Mass/Vol] 16 mg/dL Normal 7-25 The [facility] Comment on above: Order Comment: No: D o not add to previous draw Performed By: #### 4 1000, 99407, 17403 ####[facility] [place] [address], [facility] MAGNESIUM BLOODon 05-17-2021 Magnesium [Mass/Vol] 2.0 mg/dL Normal 1.9-2.7 The [facility] Comment on above: Order Comment: No: D o not add to previous draw Performed By: #### 4 1000, 62088, 71952 ####[facility] [place] [address], [place] PHOSPHORUS BLOODon Phosphate [Mass/Vol] 4.6 mg/dL Normal 2.5-5.0 The [facility] Comment on above: Order Comment: No: D o not add to previous draw Performed By: #### 4 1000, 48916, 40422 ####[facility] [place] [address], [place] POC GLUCOSE LABon 05-17-2021 Glucose [Mass/Vol] 139 mg/dL High 70-100 The [facility] Comment on above: Performed By: #### 8 5499 ####[facility] [place] [address], [place] Glucose [Mass/Vol] 100 mg/dL Normal 70-100 The [facility] Comment on above: Performed By: #### 8 5499 ####[facility] Glucose [Mass/Vol] 122 mg/dL High 70-100 [facility] Comment on above: Performed By: #### 8 5499 ####[facility] Glucose [Mass/Vol] 107 mg/dL High 70-100 [facility] Comment on above: Performed By: #### 8 5499 ####[facility] PORTABLE CHEST 1 VIEWon 04-25 PORTABLE CHEST 1 VIEW Normal [facility] Comment on above: Order Comment: evalu ate for Atelectasis *ANAEROBIC CULTUREon 021 *ANAEROBIC CULTURE Clinical Report: (D) Specimen/Source: TISSUE/INTRAOP SPEC Collected: 05/16/2021 10:48 Status: Final Last Updated: 05/21/2021 08:50 (1) STERNAL TISSUE ISO (Final) No Anaerobes Isolated Day 5 Normal The [facility] Comment on above: Order Comment: BRANDT AL TISSUE Performed By: #### 3 0312 ####[facility] *ANAEROBIC CULTURE Clinical Report: (D) Specimen/Source: SWAB/INTRAOP SPEC Collected: 05/16/2021 10:45 Status: Final Last Updated: 05/21/2021 08:50 (1) STERNAL WOUND ISO (Final) No Anaerobes Isolated Day 5 Normal The [facility] Comment on above: Order Comment: BRANDT AL WOUND Performed By: #### 3 0312 ####[facility] *TISSUE CULTUREon 05-16-2021 *TISSUE CULTURE Normal [facility] Comment on above: Order Comment: BRANDT AL TISSUE Performed By: #### 3 0338 ####[facility] *WOUND CULTUREon 09-23-2021 *WOUND CULTURE Normal [facility] Comment on above: Order Comment: BRANDT AL WOUND Performed By: #### 3 0343 ####[facility] [facility].[address] APTTon 05-16-2021 aPTT Coag (Bld) [Time] 32.6 s Normal 25.0-35.0 Th e [facility] Comment on above: Order Comment: No: [...] THIS PURPOSE. Performed By: #### 5 7307, 76532 ####[facility] [facility].[address] BASIC METABOLIC PANELon 04-25 Calcium [Mass/Vol] 8.5 mg/dL Low 8.6-10.3 The [facility] Comment on above: Order Comment: No: D o not add to previous draw Performed By: #### 4 1000, 36622, 19862 ####[facility] [facility] [address], [facility] Chloride [Moles/Vol] 101 mmol/L Normal 98-107 [facility] Comment on above: Order Comment: No: D o not add to previous draw Performed By: #### 4 1000, , 71298 ####[facility] [facility] [place] [address], [facility] CO2 [Moles/Vol] 31 mmol/L Normal 21-31 [facility] Comment on above: Order Comment: No: D o not add to previous draw Performed By: #### 4 1000, , 41846 ####[facility] [place] [address], [facility] Creatinine [Mass/Vol] 0.66 mg/dL Low 0.70-1.30 [facility] Comment on above: Order Comment: No: D o not add to previous draw Performed By: #### 4 1000, , 58241 ####[facility] [place] [address], [place] GFR/1.73 sq M.predicted among blacks MDRD (S/P/Bld) [Vol rate/Area] mL/min/{1.73_m2} Normal >60 The [facility] Comment on above: Order Comment: No: D o not add to previous draw Result Comment: Calc ulation may not be valid for patients over 70 years Performed By: #### 4 1000, , 76614 ####[facility] [place] [address], [place] GFR/1.73 sq M.predicted among non-blacks MDRD (S/P/Bld) [Vol rate/Area] mL/min/{1.73_m2} Normal >60 The [facility] Comment on above: Order Comment: No: D o not add to previous draw Result Comment: Calc ulation may not be valid for patients over 70 years Performed By: #### 4 1000, , 15571 ####[facility] [place] [address], [place] Glucose [Mass/Vol] 117 mg/dL High 70-100 [facility] Comment on above: Order Comment: No: D o not add to previous draw Performed By: #### 4 1000, , 19712 ####[facility] [place] [address], [place] Potassium [Moles/Vol] 4.1 mmol/L Normal 3.5-5.1 [facility] Comment on above: Order Comment: No: D o not add to previous draw Performed By: #### 4 1000, , 48036 ####[facility] [place] [address], [place] Sodium [Moles/Vol] 136 mmol/L Normal 136-145 [facility] Comment on above: Order Comment: No: D o not add to previous draw Performed By: #### 4 1000, 09723, 07890 ####[facility] [facility] Urea nitrogen [Mass/Vol] 11 mg/dL Normal 7-25 [facility] Comment on above: Order Comment: No: D o not add to previous draw Performed By: #### 4 1000, 63654, 50246 ####[facility] [facility].[address] CBC COMPLETE BLOOD COUNTon 05-16-2021 Erythrocyte distribution width (RBC) [Ratio] 14.5 % Normal 11.5-15.0 [facility] Comment on above: Order Comment: No: D o not add to previous draw Performed By: #### 5 0608 ####[facility] [facility].[address] Hematocrit (Bld) [Volume fraction] 30.5 % Low 39.0-50.0 [facility] Comment on above: Order Comment: No: D o not add to previous draw Performed By: #### 5 0608 ####[place] [address] [facility].[address] Hemoglobin (Bld) [Mass/Vol] 9.5 g/dL Low 13.0-17.0 [facility] Comment on above: Order Comment: No: D o not add to previous draw Performed By: #### 5 0608 ####[facility] [facility] [place] [address], [facility] MCH (RBC) [Entitic mass] 28.5 pg Normal 27.0-33.0 [facility] Comment on above: Order Comment: No: D o not add to previous draw Performed By: #### 5 0608 ####[facility] [place] [address].[address] MCHC (RBC) [Mass/Vol] 31.1 g/dL Low 32.0-35.0 [facility] Comment on above: Order Comment: No: D o not add to previous draw Performed By: #### 5 0608 ####[facility] [place] [address], [facility] MCV (RBC) [Entitic vol] 91.6 fL Normal 82.0-98.0 [facility] Comment on above: Order Comment: No: D o not add to previous draw Performed By: #### 5 0608 ####[facility] Nucleated RBC/100 WBC (Bld) [Ratio] 0 % Normal 0-0 [facility] Comment on above: Order Comment: No: D o not add to previous draw Performed By: #### 5 0608 ####[facility] [place] [address], [facility] PLAT CNT 353 10*3/uL Normal 150-400 [facility] Comment on above: Order Comment: No: D o not add to previous draw Performed By: #### 5 0608 ####[facility] [facility].[address] RBC (Bld) [#/Vol] 3.33 10*6/uL Low 4.20-5.70 [facility] Comment on above: Order Comment: No: D o not add to previous draw Performed By: #### 5 0608 ####[facility] [place] [address], [facility] WBC (Bld) [#/Vol] 5.98 10*3/uL Normal 4.00-10.60 [facility] Comment on above: Order Comment: No: D o not add to previous draw Performed By: #### 5 0608 ####[facility] [place] [address], [facility] LACTATE BLOODon 05-16-2021 Lactate [Moles/Vol] 0.6 mmol/L Normal .5-2.2 [facility] Comment on above: Order Comment: No: D o not add to previous draw Performed By: #### 1 0054 ####[facility] [facility] [place] [address], [facility] Lactate [Moles/Vol] 0.8 mmol/L Normal .5-2.2 [facility] Comment on above: Order Comment: No: D o not add to previous draw Performed By: #### 1 0054 ####[facility] [facility] [place] [address], [facility] MAGNESIUM BLOODon 05-16-2021 Magnesium [Mass/Vol] 1.9 mg/dL Normal 1.9-2.7 [facility] Comment on above: Order Comment: No: D o not add to previous draw Performed By: #### 4 1000, 89812, 79050 ####[facility] [facility] [place] [address], [facility] OSMOLALITY BLOODon 1 Osmolality [Osmolality] 292 mosm/kg Normal 285-305 [facility] Comment on above: Order Comment: No: D o not add to previous draw Performed By: #### 3 9301, 09381 ####[facility] [facility] [place] [address], [facility] Osmolality [Osmolality] 297 mosm/kg Normal 285-305 [facility] Comment on above: Order Comment: No: D o not add to previous draw Performed By: #### 3 9301, 15409 ####[facility] [facility] [place] [address], [facility] PHOSPHORUS BLOODon 1 Phosphate [Mass/Vol] 4.3 mg/dL Normal 2.5-5.0 [facility] Comment on above: Order Comment: No: D o not add to previous draw Performed By: #### 4 1000, 41734, 28019 ####[facility] [place] [address], [facility] POC GLUCOSE LABon 05-16-2021 Glucose [Mass/Vol] 121 mg/dL High 70-100 [facility] Comment on above: Performed By: #### 8 5499 ####[facility] [place] [address], [place] Glucose [Mass/Vol] 126 mg/dL High 70-100 [facility] Comment on above: Performed By: #### 8 5499 ####[facility] [place] [address], [place] Glucose [Mass/Vol] 133 mg/dL High 70-100 [facility] Comment on above: Performed By: #### 8 5499 ####[facility] [facility] [address], [place] Glucose [Mass/Vol] 131 mg/dL High 70-100 [facility] Comment on above: Performed By: #### 8 5499 ####[facility] [facility] [place] [address], [facility] PORTABLE CHEST 1 VIEWon 04-25 PORTABLE CHEST 1 VIEW Normal [facility] Comment on above: Order Comment: Check NG Tube Position PORTABLE CHEST 1 VIEW Normal [facility] Comment on above: Order Comment: Evalu ate Atelectasis PROTHROMBIN TIMEon INR Coag (PPP) [Relative time] 1.15 {INR} Normal 0.91-1.16 [facility] Comment on above: Order Comment: No: [...] OF ACTION, CLINICALEFFECTIVENESS, AND OPTIMAL THERAPEUTIC RANGE. [id number]. Performed By: #### 5 7307, 53530 ####[facility] PT Coag (PPP) [Time] 14.7 s Normal 12.3-14.8 [facility] Comment on above: Order Comment: No: D o not add to previous draw Result Comment: ALL RESULTS MUST BE INTERPRETED WITH RESPECT TO BLOOD DRAWING ARTIFACTOR DILUTION ERROR OF ANTICOAGULANT AT THE TIME OF SAMPLING. Performed By: #### 5 7307, 57014 ####[facility] TRIGLYCERIDES BLOODon 2020 Triglyceride [Mass/Vol] 95 mg/dL Normal 40-149 [facility] Comment on above: Order Comment: No: D o not add to previous draw Result Comment: TRIG LYCERIDE REFERENCE RANGE:20 YEARS AND OLDER CARDIOVASCULAR RISKLESS THAN 150 mg/dl LOW [id number] TO 199 mg/dl BORDERLINE [id number] mg/dl AND GREATER HIGH RISK Performed By: #### 3 9301, 94692 ####[facility] [facility].[address] Triglyceride [Mass/Vol] 98 mg/dL Normal 40-149 [facility] Comment on above: Order Comment: No: D o not add to previous draw Result Comment: TRIG LYCERIDE REFERENCE RANGE:20 YEARS AND OLDER CARDIOVASCULAR RISKLESS THAN 150 mg/dl LOW [id number] TO 199 mg/dl BORDERLINE [id number] mg/dl AND GREATER HIGH RISK Performed By: #### 3 9301, 67850 ####[place] [address] *BLOOD CULTUREon 05-15-2021 *BLOOD CULTURE Clinical Report: (D) Specimen: BLOOD CULTURE Collected: 05/15/2021 11:35 Status: Final Last Updated: 05/20/2021 14:11 (1) Prior to antibiotic administration CULT RES (Final) No Growth Day 5 Normal [facility] Comment on above: Order Comment: Prior to antibiotic administration Performed By: #### 3 0313 ####[place] [address] APTTon 05-15-2021 aPTT Coag (Bld) [Time] 30.4 s Normal 25.0-35.0 Th e [facility] Comment on above: Result Comment: ALL RESULTS [...] THIS PURPOSE. Performed By: #### 5 7307, 89989 ####[place] [address] ARTERIAL BLOOD GAS W/COOXon 05-15-2021 BASE EXCESS 2 mmol/L Normal -2-3 [facility] Comment on above: Order Comment: RESUL TS CHECKED AND CALLED. ACCURATELY READ BACK BY RADHIKA ED CHARGE. Performed By: #### 4 0055 ####[address] COHB 2.3 % High 0.0-1.5 [facility] Comment on above: Order Comment: RESUL TS CHECKED AND CALLED. ACCURATELY READ BACK BY RADHIKA ED CHARGE. Performed By: #### 4 0055 ####[address] [employer] [place] Normal [facility] Comment on above: Order Comment: RESUL TS CHECKED AND CALLED. ACCURATELY READ BACK BY RADHIKA ED CHARGE. Performed By: #### 4 0055 ####[facility] [facility].[address] HCO3 (Bld) [Moles/Vol] 29 mmol/L High 21-28 Th e [facility] Comment on above: Order Comment: RESUL TS CHECKED AND CALLED. ACCURATELY READ BACK BY RADHIKA ED CHARGE. Performed By: #### 4 0055 ####[place] [id number] [facility].[address] LPM 5.0 LPM Normal [facility] Comment on above: Order Comment: RESUL TS CHECKED AND CALLED. ACCURATELY READ BACK BY RADHIKA ED CHARGE. Performed By: #### 4 0055 ####[facility]3000 [facility].[address] METHB 1.1 % Normal 0.0-1.5 [facility] Comment on above: Order Comment: RESUL TS CHECKED AND CALLED. ACCURATELY READ BACK BY RADHIKA ED CHARGE. Performed By: #### 4 0055 ####[facility]3000 [facility] [place] [address], [facility] MODALITY NC Normal [facility] Comment on above: Order Comment: RESUL TS CHECKED AND CALLED. ACCURATELY READ BACK BY RADHIKA ED CHARGE. Performed By: #### 4 0055 ####[facility]3000 [facility].[address] Oxygen (Bld) [Partial pressure] 83 mm[Hg] Normal 83-108 [facility] Comment on above: Order Comment: RESUL TS CHECKED AND CALLED. ACCURATELY READ BACK BY RADHIKA ED CHARGE. Performed By: #### 4 0055 ####[facility]3000 [facility].[address] Oxygen saturation in Blood 94.8 % Normal 94.0-97.0 [facility] Comment on above: Order Comment: RESUL TS CHECKED AND CALLED. ACCURATELY READ BACK BY RADHIKA ED CHARGE. Performed By: #### 4 0055 ####[facility]3000 [facility].[address] PCO2 58 mmHg Critically high 35-45 [facility] Comment on above: Order Comment: RESUL TS CHECKED AND CALLED. ACCURATELY READ BACK BY RADHIKA ED CHARGE. Performed By: #### 4 0055 ####[facility]3000 [facility].[address] pH (Bld) 7.31 [pH] Low 7.35-7.45 [facility] Comment on above: Order Comment: RESUL TS CHECKED AND CALLED. ACCURATELY READ BACK BY RADHIKA ED CHARGE. Performed By: #### 4 0055 ####[address] THB 10.2 g/dL Low 12.0-16.3 [facility] Comment on above: Order Comment: RESUL TS CHECKED AND CALLED. ACCURATELY READ BACK BY RADHIKA ED CHARGE. Performed By: #### 4 0055 ####[place] [address] [facility].[address] BNP (B-TYPE NATRIURETIC PEPT MAX)on 05-15-2021 Natriuretic peptide B (Bld) [Mass/Vol] 136 pg/mL High 0-100 [facility] Comment on above: Order Comment: Yes: Add to Previous draw if able Result Comment: Give n the appropriate clinical setting a BNP result of >100 pg/mLindicates congestive heart failure. Performed By: #### 8 5123 ####[place] [address] [facility].[address] CBC W/DIFFon 05-15-2021 ABS IMM GRANS 0.0 10*3/uL Normal 0.0-0.2 [facility] Comment on above: Performed By: #### 5 0103 ####[place] [address] [facility] [place] [address], [facility] ABS NEUTROPHILS 5.0 10*3/uL Normal 1.6-7.6 [facility] Comment on above: Performed By: #### 5 0103 ####[place] [address], [facility] Basophils (Bld) [#/Vol] 0.0 10*3/uL Normal 0.0-0.2 [facility] Comment on above: Performed By: #### 5 0103 ####[place] [address] [place] [address], [facility] Basophils/100 WBC (Bld) 0.6 % Normal 0.0-1.0 [facility] Comment on above: Performed By: #### 3 ####[address] Eosinophils (Bld) [#/Vol] 0.1 10*3/uL Normal 0.0-0.5 [facility] Comment on above: Performed By: #### 5 3 ####[address] Eosinophils/100 WBC (Bld) 0.7 % Normal 0.0-6.0 [facility] Comment on above: Performed By: #### 5 3 ####[place] [address] [address] Erythrocyte distribution width (RBC) [Ratio] 14.5 % Normal 11.5-15.0 [facility] Comment on above: Performed By: #### 5 3 ####[address] Hematocrit (Bld) [Volume fraction] 32.5 % Low 39.0-50.0 [facility] Comment on above: Performed By: #### 5 3 ####[address] [place] [address], [place] Hemoglobin (Bld) [Mass/Vol] 10.3 g/dL Low 13.0-17.0 [facility] Comment on above: Performed By: #### 5 3 ####[address] IMMATURE GRANS 0.6 % Normal 0.0-1.0 [facility] Comment on above: Performed By: #### 5 3 ####[address] Lymphocytes (Bld) [#/Vol] 1.1 10*3/uL Low 1.2-4.0 [facility] Comment on above: Performed By: #### 102 ####[address] Lymphocytes/100 WBC (Bld) 15.9 % Low 20.0-45.0 [facility] Comment on above: Performed By: #### 5 3 ####[address] MCH (RBC) [Entitic mass] 28.8 pg Normal 27.0-33.0 [facility] Comment on above: Performed By: #### 5 3 ####[address] MCHC (RBC) [Mass/Vol] 31.7 g/dL Low 32.0-35.0 [facility] Comment on above: Performed By: #### 5 3 ####[address] MCV (RBC) [Entitic vol] 90.8 fL Normal 82.0-98.0 [facility] Comment on above: Performed By: #### 5 3 ####[address] [place] [address], [facility] Monocytes (Bld) [#/Vol] 0.8 10*3/uL Normal 0.1-1.0 [facility] Comment on above: Performed By: #### 5 0103 ####[facility] [facility] [place] [address], [facility] MONOS 11.2 % Normal 5.0-12.0 [facility] Comment on above: Performed By: #### 5 0103 ####[facility] [facility] [place] [address], [facility] Neutrophils/100 WBC (Bld) 71.0 % Normal 40.0-72.0 [facility] Comment on above: Performed By: #### 102 ####[facility] [facility] [place] [address], [facility] Nucleated RBC/100 WBC (Bld) [Ratio] 0 % Normal 0-0 [facility] Comment on above: Performed By: #### 102 ####[facility] [facility] [place] [address], [facility] PLAT CNT 376 10*3/uL Normal 150-400 [facility] Comment on above: Performed By: #### 3 ####[facility] [facility] [place] [address], [facility] RBC (Bld) [#/Vol] 3.58 10*6/uL Low 4.20-5.70 [facility] Comment on above: Performed By: #### 0103 ####[facility] [facility] [place] [address], [facility] WBC (Bld) [#/Vol] 7.03 10*3/uL Normal 4.00-10.60 [facility] Comment on above: Performed By: #### 3 ####[facility]3000 [facility].[place] [id number], [facility] COMP METABOLIC PANELon 05-15 Albumin [Mass/Vol] 3.2 g/dL Low 3.5-5.7 [facility] Comment on above: Performed By: #### 4 1000, 69053, 31777, 22523 ####[facility] [place] [address], [place] ALKALINE PHOSPH 84 IU/L Normal 34-104 [facility] Comment on above: Performed By: #### 4 1000, 26272, 27652, 08703 ####[facility] [place] [address], [place] ALT [Catalytic activity/Vol] 11 U/L Normal 7-52 [facility] Comment on above: Performed By: #### 4 1000, 90335, 19957, 30708 ####[facility] [place] [address], [place] AST [Catalytic activity/Vol] 12 U/L Low 13-39 [facility] Comment on above: Performed By: #### 4 1000, 56629, 90265, 06907 ####[facility] [place] [address], [place] Bilirubin [Mass/Vol] 0.9 mg/dL Normal 0.3-1.0 [facility] Comment on above: Performed By: #### 4 1000, 38023, 40845, 57443 ####[facility] [place] [address], [place] Calcium [Mass/Vol] 8.3 mg/dL Low 8.6-10.3 [facility] Comment on above: Performed By: #### 4 1000, 17627, 99554, 10218 ####[facility] [place] [address], [place] Chloride [Moles/Vol] 101 mmol/L Normal 98-107 [facility] Comment on above: Performed By: #### 4 1000, 09206, 12651, 91726 ####[facility] [place] [address], [place] CO2 [Moles/Vol] 30 mmol/L Normal 21-31 [facility] Comment on above: Performed By: #### 4 1000, 99190, 68688, 24573 ####[facility] [place] [address], [place] Creatinine [Mass/Vol] 0.92 mg/dL Normal 0.70-1.30 [facility] Comment on above: Performed By: #### 4 1000, 78438, 51250, 47056 ####[facility] [place] [address], [place] GFR/1.73 sq M.predicted among blacks MDRD (S/P/Bld) [Vol rate/Area] mL/min/{1.73_m2} Normal >60 [facility] Comment on above: Result Comment: Calc ulation may not be valid for patients over 70 years Performed By: #### 4 1000, 03290, 95311, 45536 ####[facility] [place] [address], [place] GFR/1.73 sq M.predicted among non-blacks MDRD (S/P/Bld) [Vol rate/Area] mL/min/{1.73_m2} Normal >60 [facility] Comment on above: Result Comment: Calc ulation may not be valid for patients over 70 years Performed By: #### 4 1000, 15501, 08668, 66196 ####[facility] [place] [address], [place] Glucose [Mass/Vol] 138 mg/dL High 70-100 [facility] Comment on above: Performed By: #### 4 1000, 56615, 23942, 79894 ####[facility] [place] [address], [place] Potassium [Moles/Vol] 4.1 mmol/L Normal 3.5-5.1 [facility] Comment on above: Performed By: #### 4 1000, 09576, 86868, 67185 ####[facility] [place] [address], [facility] Protein [Mass/Vol] 7.4 g/dL Normal 6.0-8.3 [facility] Comment on above: Performed By: #### 4 1000, 45919, 29377, 91408 ####[facility] [place] [address], [facility] Sodium [Moles/Vol] 136 mmol/L Normal 136-145 [facility] Comment on above: Performed By: #### 4 1000, 73913, 14780, 08081 ####[facility] [place] [address], [facility] Urea nitrogen [Mass/Vol] 8 mg/dL Normal 7-25 [facility] Comment on above: Performed By: #### 4 1000, 18409, 63742, 88696 ####[facility] [place] [address], [facility] LACTATE BLOODon 05-15-2021 Lactate [Moles/Vol] 0.7 mmol/L Normal .5-2.2 [facility] Comment on above: Order Comment: Repea t Lactate in 4 hours Performed By: #### 1 0054 ####[facility] [place] [address], [facility] MAGNESIUM BLOODon 05-15-2021 Magnesium [Mass/Vol] 2.0 mg/dL Normal 1.9-2.7 [facility] Comment on above: Performed By: #### 4 1000, 96279, 39498, 01619 ####[facility] [place] [address], [facility] PHOSPHORUS BLOODon Phosphate [Mass/Vol] 6.0 mg/dL High 2.5-5.0 [facility] Comment on above: Performed By: #### 4 1000, 53316, 38309, 17013 ####[facility]3000 [facility].[address] POC GLUCOSE LABon 05-15-2021 Glucose [Mass/Vol] 225 mg/dL High 70-100 [facility] Comment on above: Performed By: #### 8 5499 ####[facility]3000 [facility].[address] POC SARS COV2 ANTIGEN NEGATI VEon 05-15-2021 POC SARS COV2 ANTIGEN NEG Negative Normal NEGATIVE [facility] Comment on above: Result Comment: Nega tive [...] of clinicalsigns and symptoms consistent with COVID-19.The [facility] COVID-19 Ag Card is a lateral flow immunoassay intended forthe qualitative detection of nucleocapsid protein antigen [id number] in direct nasal swabs from individuals within [...] #### 3 1977 ####[facility] [place] [address], [facility] PORTABLE CHEST 1 VIEWon 04-25 PORTABLE CHEST 1 VIEW Normal [facility] Comment on above: Order Comment: Evalu ate for Infiltrates, hypoxia, infected sternotomy site PROTHROMBIN TIMEon INR Coag (PPP) [Relative time] 1.07 {INR} Normal 0.91-1.16 [facility] Comment on above: Result Comment: ACCC P RECOMMENDED INR FOR WARFARIN THERAPY CONDITION INRPROPHYLAXIS OF VENOUS THROMBOSIS 2-3(HIGH-RISK SURGERY)TREATMENT OF VENOUS THROMBOSIS 2-3TREATMENT OF PULMONARY EMBOLISM 2-3PREVENTION OF SYSTEMIC EMBOLISM: 2-3 ACUTE MYOCARDIAL INFARCTION TISSUE HEART VALVES VALVULAR HEART DISEASE ATRIAL FIBRILLATION RECURRENT SYSTEMIC EMBOLISMMECHANICAL HEART VALVE 2.5-3.5 FROM: ORAL ANTICOAGULANTS. MECHANISM OF ACTION, CLINICALEFFECTIVENESS, AND OPTIMAL THERAPEUTIC RANGE. [id number]. Performed By: #### 5 7307, 62787 ####[facility] [facility] [place] [address], [facility] PT Coag (PPP) [Time] 13.9 s Normal 12.3-14.8 [facility] Comment on above: Result Comment: ALL RESULTS MUST BE INTERPRETED WITH RESPECT TO BLOOD DRAWING ARTIFACTOR DILUTION ERROR OF ANTICOAGULANT AT THE TIME OF SAMPLING. Performed By: #### 5 7307, 45781 ####[facility] [facility] [place] [address], [facility] TROPONIN-Ion 05-15-2021 Troponin I.cardiac [Mass/Vol] 0.01 ng/mL Normal 0.00-0.04 [facility] Comment on above: Result Comment: REFE RENCE RANGES: 0.00 - 0.04 ng/ml NORMAL 0.05 - 0.50 ng/ml INDETERMINATE > 0.50 ng/ml CONSISTENT WITH AN M.I. Performed By: #### 4 1000, 76935, 73214, 36326 ####[facility]3000 [facility].[address] TYPE AND SCREENon 05-15-2021 ABO INTERPRETATION O Normal [facility] Comment on above: Performed By: #### 6 2586 ####[facility] [facility] [place] [address], [facility] RH INTERPRETATION Positive Normal [facility] Comment on above: Performed By: #### 6 2586 ####[facility]3000 [facility].[address] POC GLUCOSE LABon 04-15-2021 Glucose [Mass/Vol] 143 mg/dL High 70-100 [facility] Comment on above: Performed By: #### 8 5499 ####[facility]3000 [facility].[address] Glucose [Mass/Vol] 241 mg/dL High 70-100 [facility] Comment on above: Performed By: #### 8 5499 ####[facility]3000 [facility].[address] Glucose [Mass/Vol] 121 mg/dL High 70-100 [facility] Comment on above: Performed By: #### 8 5499 ####[facility] [facility].[address] POC SARS COV2 ANTIGEN NEGATI VEon 04-15-2021 POC SARS COV2 ANTIGEN NEG Negative Normal NEGATIVE [facility] Comment on above: Result Comment: Nega tive [...] of clinicalsigns and symptoms consistent with COVID-19.The [facility] COVID-19 Ag Card is a lateral flow immunoassay intended forthe qualitative detection of nucleocapsid protein antigen [id number] in direct nasal swabs from individuals within [...] #### 3 1977 ####[facility] BASIC METABOLIC PANELon 08-2 Calcium [Mass/Vol] 8.7 mg/dL Normal 8.6-10.3 [facility] Comment on above: Order Comment: No: D o not add to previous draw Performed By: #### 0 0071, 37268 ####[facility] [facility] [place] [address], [facility] Chloride [Moles/Vol] 95 mmol/L Low 98-107 [facility] Comment on above: Order Comment: No: D o not add to previous draw Performed By: #### 0 0071, 25293 ####[facility] [facility] [place] [address], [facility] CO2 [Moles/Vol] 27 mmol/L Normal 21-31 [facility] Comment on above: Order Comment: No: D o not add to previous draw Performed By: #### 0 0071, 97953 ####[place] [address] [facility] [place] [address], [facility] Creatinine [Mass/Vol] 0.80 mg/dL Normal 0.70-1.30 [facility] Comment on above: Order Comment: No: D o not add to previous draw Performed By: #### 0 0071, 73030 ####[facility] [place] [address], [facility] GFR/1.73 sq M.predicted among blacks MDRD (S/P/Bld) [Vol rate/Area] mL/min/{1.73_m2} Normal >60 [facility] Comment on above: Order Comment: No: D o not add to previous draw Result Comment: Calc ulation may not be valid for patients over 70 years Performed By: #### 0 0071, 81003 ####[facility] [place] [address], [facility] GFR/1.73 sq M.predicted among non-blacks MDRD (S/P/Bld) [Vol rate/Area] mL/min/{1.73_m2} Normal >60 [facility] Comment on above: Order Comment: No: D o not add to previous draw Result Comment: Calc ulation may not be valid for patients over 70 years Performed By: #### 0 0071, 17910 ####[facility] [place] [address], [facility] Glucose [Mass/Vol] 108 mg/dL High 70-100 [facility] Comment on above: Order Comment: No: D o not add to previous draw Performed By: #### 0 0071, 23072 ####[facility] [place] [address], [facility] Potassium [Moles/Vol] 3.6 mmol/L Normal 3.5-5.1 [facility] Comment on above: Order Comment: No: D o not add to previous draw Performed By: #### 0 0071, 86657 ####[facility] [place] [address], [place] Sodium [Moles/Vol] 132 mmol/L Low 136-145 [facility] Comment on above: Order Comment: No: D o not add to previous draw Performed By: #### 0 0071, 30031 ####[facility] [facility].[address] Urea nitrogen [Mass/Vol] 38 mg/dL High 7-25 [facility] Comment on above: Order Comment: No: D o not add to previous draw Performed By: #### 0 0071, 87319 ####[facility] [facility].[address] CBC COMPLETE BLOOD COUNTon 0 04-14-2021 Erythrocyte distribution width (RBC) [Ratio] 14.1 % Normal 11.5-15.0 [facility] Comment on above: Order Comment: No: D o not add to previous draw Performed By: #### 5 0608 ####[facility] Hematocrit (Bld) [Volume fraction] 33.5 % Low 39.0-50.0 [facility] Comment on above: Order Comment: No: D o not add to previous draw Performed By: #### 5 0608 ####[facility] [facility].[address] Hemoglobin (Bld) [Mass/Vol] 11.3 g/dL Low 13.0-17.0 [facility] Comment on above: Order Comment: No: D o not add to previous draw Performed By: #### 5 0608 ####[facility] [facility].[address] MCH (RBC) [Entitic mass] 30.2 pg Normal 27.0-33.0 [facility] Comment on above: Order Comment: No: D o not add to previous draw Performed By: #### 5 0608 ####[facility] [place] [address].[address] MCHC (RBC) [Mass/Vol] 33.7 g/dL Normal 32.0-35.0 [facility] Comment on above: Order Comment: No: D o not add to previous draw Performed By: #### 5 0608 ####[facility] [place] [address], [facility] MCV (RBC) [Entitic vol] 89.6 fL Normal 82.0-98.0 [facility] Comment on above: Order Comment: No: D o not add to previous draw Performed By: #### 5 0608 ####[facility] [facility].[address] Nucleated RBC/100 WBC (Bld) [Ratio] 0 % Normal 0-0 [facility] Comment on above: Order Comment: No: D o not add to previous draw Performed By: #### 5 0608 ####[facility] [place] [address], [facility] PLAT CNT 314 10*3/uL Normal 150-400 [facility] Comment on above: Order Comment: No: D o not add to previous draw Performed By: #### 5 0608 ####[facility] [facility].[address] RBC (Bld) [#/Vol] 3.74 10*6/uL Low 4.20-5.70 [facility] Comment on above: Order Comment: No: D o not add to previous draw Performed By: #### 5 0608 ####[facility] [facility] [place] [address], [facility] WBC (Bld) [#/Vol] 10.84 10*3/uL High 4.00-10.60 [facility] Comment on above: Order Comment: No: D o not add to previous draw Performed By: #### 5 0608 ####[facility] [place] [address] MAGNESIUM BLOODon 04-14-2021 Magnesium [Mass/Vol] 1.9 mg/dL Normal 1.9-2.7 [facility] Comment on above: Order Comment: No: D o not add to previous draw Performed By: #### 0 0071, 88637 ####[facility] [facility] [place] [address], [facility] POC GLUCOSE LABon 04-14-2021 Glucose [Mass/Vol] 168 mg/dL High 70-100 [facility] Comment on above: Performed By: #### 8 5499 ####[facility] [place] [address], [place] Glucose [Mass/Vol] 133 mg/dL High 70-100 [facility] Comment on above: Performed By: #### 8 5499 ####[facility] [facility] [place] [address], [place] Glucose [Mass/Vol] 167 mg/dL High 70-100 [facility] Comment on above: Performed By: #### 8 5499 ####[facility] [facility] [place] [address], [place] Glucose [Mass/Vol] 146 mg/dL High 70-100 [facility] Comment on above: Performed By: #### 8 5499 ####[facility] [facility] [address], [place] Glucose [Mass/Vol] 152 mg/dL High 70-100 [facility] Comment on above: Performed By: #### 8 5499 ####[facility] [facility] [place] [address], [place] PORTABLE CHEST 1 VIEWon 03-25 PORTABLE CHEST 1 VIEW Normal [facility] Comment on above: Order Comment: evalu ate Atelectasis BASIC METABOLIC PANELon 03-25 Calcium [Mass/Vol] 9.1 mg/dL Normal 8.6-10.3 [facility] Comment on above: Order Comment: No: D o not add to previous draw Performed By: #### 1 0070, 99362 ####[facility] [place] [address], [facility] Chloride [Moles/Vol] 94 mmol/L Low 98-107 [facility] Comment on above: Order Comment: No: D o not add to previous draw Performed By: #### 1 69, 18676 ####[facility]3000 [place] [address], [place] CO2 [Moles/Vol] 27 mmol/L Normal 21-31 [facility] Comment on above: Order Comment: No: D o not add to previous draw Performed By: #### 1 69, 23634 ####[facility] [place] [address], [facility] Creatinine [Mass/Vol] 0.87 mg/dL Normal 0.70-1.30 [facility] Comment on above: Order Comment: No: D o not add to previous draw Performed By: #### 1 69, 87032 ####[facility] [place] [address], [facility] GFR/1.73 sq M.predicted among blacks MDRD (S/P/Bld) [Vol rate/Area] mL/min/{1.73_m2} Normal >60 [facility] Comment on above: Order Comment: No: D o not add to previous draw Result Comment: Calc ulation may not be valid for patients over 70 years Performed By: #### 1 69, 06324 ####[facility] [place] [address], [place] GFR/1.73 sq M.predicted among non-blacks MDRD (S/P/Bld) [Vol rate/Area] mL/min/{1.73_m2} Normal >60 [facility] Comment on above: Order Comment: No: D o not add to previous draw Result Comment: Calc ulation may not be valid for patients over 70 years Performed By: #### 1 69, 35665 ####[facility] Glucose [Mass/Vol] 125 mg/dL High 70-100 [facility] Comment on above: Order Comment: No: D o not add to previous draw Performed By: #### 1 69, 69162 ####[facility] [place] [address], [facility] Potassium [Moles/Vol] 3.2 mmol/L Low 3.5-5.1 [facility] Comment on above: Order Comment: No: D o not add to previous draw Performed By: #### 1 69, 89824 ####[facility] [facility] Sodium [Moles/Vol] 132 mmol/L Low 136-145 [facility] Comment on above: Order Comment: No: D o not add to previous draw Performed By: #### 1 69, 86847 ####[facility] [facility] Urea nitrogen [Mass/Vol] 27 mg/dL High 7-25 [facility] Comment on above: Order Comment: No: D o not add to previous draw Performed By: #### 1 69, 29241 ####[facility]3000 [facility].[address] CBC COMPLETE BLOOD COUNTon 0 - Erythrocyte distribution width (RBC) [Ratio] 14.2 % Normal 11.5-15.0 [facility] Comment on above: Order Comment: No: D o not add to previous draw Performed By: #### 5 0608 ####[facility] [facility].[address] Hematocrit (Bld) [Volume fraction] 35.2 % Low 39.0-50.0 [facility] Comment on above: Order Comment: No: D o not add to previous draw Performed By: #### 5 0608 ####[facility] Hemoglobin (Bld) [Mass/Vol] 11.9 g/dL Low 13.0-17.0 [facility] Comment on above: Order Comment: No: D o not add to previous draw Performed By: #### 5 0608 ####[address] MCH (RBC) [Entitic mass] 30.6 pg Normal 27.0-33.0 [facility] Comment on above: Order Comment: No: D o not add to previous draw Performed By: #### 5 0608 ####[address] MCHC (RBC) [Mass/Vol] 33.8 g/dL Normal 32.0-35.0 [facility] Comment on above: Order Comment: No: D o not add to previous draw Performed By: #### 5 0608 ####[address] MCV (RBC) [Entitic vol] 90.5 fL Normal 82.0-98.0 [facility] Comment on above: Order Comment: No: D o not add to previous draw Performed By: #### 5 0608 ####[address] Nucleated RBC/100 WBC (Bld) [Ratio] 0 % Normal 0-0 [facility] Comment on above: Order Comment: No: D o not add to previous draw Performed By: #### 5 0608 ####[address] PLAT CNT 285 10*3/uL Normal 150-400 [facility] Comment on above: Order Comment: No: D o not add to previous draw Performed By: #### 5 0608 ####[address] RBC (Bld) [#/Vol] 3.89 10*6/uL Low 4.20-5.70 [facility] Comment on above: Order Comment: No: D o not add to previous draw Performed By: #### 5 0608 ####[facility] [place] [address], [facility] WBC (Bld) [#/Vol] 9.92 10*3/uL Normal 4.00-10.60 [facility] Comment on above: Order Comment: No: D o not add to previous draw Performed By: #### 5 0608 ####[facility] [place] [address], [facility] MAGNESIUM BLOODon 04-13-2021 Magnesium [Mass/Vol] 1.9 mg/dL Normal 1.9-2.7 [facility] Comment on above: Order Comment: No: D o not add to previous draw Performed By: #### 1 0070, 74730 ####[facility] [place] [address], [facility] POC GLUCOSE LABon 04-13-2021 Glucose [Mass/Vol] 106 mg/dL High 70-100 [facility] Comment on above: Performed By: #### 8 5499 ####[facility] [place] [address], [place] Glucose [Mass/Vol] 185 mg/dL High 70-100 [facility] Comment on above: Performed By: #### 8 5499 ####[facility] [place] [address], [place] Glucose [Mass/Vol] 136 mg/dL High 70-100 [facility] Comment on above: Performed By: #### 8 5499 ####[facility] [place] [address], [place] PORTABLE CHEST 1 VIEWon 03-25 PORTABLE CHEST 1 VIEW Normal [facility] Comment on above: Order Comment: evalu ate for Atelectasis BASIC METABOLIC PANELon 08-2 Calcium [Mass/Vol] 8.3 mg/dL Low 8.6-10.3 [facility] Comment on above: Order Comment: No: D o not add to previous draw Performed By: #### 1 69, 65053 ####[facility] [place] [address], [facility] Chloride [Moles/Vol] 102 mmol/L Normal 98-107 [facility] Comment on above: Order Comment: No: D o not add to previous draw Performed By: #### 1 69, 92880 ####[facility] [place] [address], [facility] CO2 [Moles/Vol] 25 mmol/L Normal 21-31 [facility] Comment on above: Order Comment: No: D o not add to previous draw Performed By: #### 1 69, 38354 ####[facility] [place] [address], [place] Creatinine [Mass/Vol] 0.67 mg/dL Low 0.70-1.30 [facility] Comment on above: Order Comment: No: D o not add to previous draw Performed By: #### 1 69, 90929 ####[facility] [place] [address], [facility] GFR/1.73 sq M.predicted among blacks MDRD (S/P/Bld) [Vol rate/Area] mL/min/{1.73_m2} Normal >60 [facility] Comment on above: Order Comment: No: D o not add to previous draw Result Comment: Calc ulation may not be valid for patients over 70 years Performed By: #### 1 69, 82291 ####[facility] [place] [address], [place] GFR/1.73 sq M.predicted among non-blacks MDRD (S/P/Bld) [Vol rate/Area] mL/min/{1.73_m2} Normal >60 [facility] Comment on above: Order Comment: No: D o not add to previous draw Result Comment: Calc ulation may not be valid for patients over 70 years Performed By: #### 1 69, 86847 ####[facility] [place] [address], [place] Glucose [Mass/Vol] 116 mg/dL High 70-100 [facility] Comment on above: Order Comment: No: D o not add to previous draw Performed By: #### 1 69, 97404 ####[facility] [place] [address], [place] Potassium [Moles/Vol] 4.0 mmol/L Normal 3.5-5.1 [facility] Comment on above: Order Comment: No: D o not add to previous draw Performed By: #### 1 69, 69785 ####[facility] [place] [address], [place] Sodium [Moles/Vol] 134 mmol/L Low 136-145 [facility] Comment on above: Order Comment: No: D o not add to previous draw Performed By: #### 1 69, 12215 ####[facility] [place] [address], [place] Urea nitrogen [Mass/Vol] 22 mg/dL Normal 7-25 [facility] Comment on above: Order Comment: No: D o not add to previous draw Performed By: #### 1 69, 02897 ####[facility] [id number], [place] CBC COMPLETE BLOOD COUNTon 0 - Erythrocyte distribution width (RBC) [Ratio] 14.6 % Normal 11.5-15.0 [facility] Comment on above: Order Comment: No: D o not add to previous draw Performed By: #### 5 0608 ####[facility] Hematocrit (Bld) [Volume fraction] 33.1 % Low 39.0-50.0 [facility] Comment on above: Order Comment: No: D o not add to previous draw Performed By: #### 5 0608 ####[facility] Hemoglobin (Bld) [Mass/Vol] 10.6 g/dL Low 13.0-17.0 [facility] Comment on above: Order Comment: No: D o not add to previous draw Performed By: #### 5 0608 ####[place] [address] [address] MCH (RBC) [Entitic mass] 30.0 pg Normal 27.0-33.0 [facility] Comment on above: Order Comment: No: D o not add to previous draw Performed By: #### 5 0608 ####[facility] MCHC (RBC) [Mass/Vol] 32.0 g/dL Normal 32.0-35.0 [facility] Comment on above: Order Comment: No: D o not add to previous draw Performed By: #### 5 0608 ####[facility] MCV (RBC) [Entitic vol] 93.8 fL Normal 82.0-98.0 [facility] Comment on above: Order Comment: No: D o not add to previous draw Performed By: #### 5 0608 ####[place] [address] [address] Nucleated RBC/100 WBC (Bld) [Ratio] 0 % Normal 0-0 [facility] Comment on above: Order Comment: No: D o not add to previous draw Performed By: #### 5 0608 ####[facility] [place] [address], [facility] PLAT CNT 213 10*3/uL Normal 150-400 [facility] Comment on above: Order Comment: No: D o not add to previous draw Performed By: #### 5 0608 ####[facility] [place] [address], [place] RBC (Bld) [#/Vol] 3.53 10*6/uL Low 4.20-5.70 [facility] Comment on above: Order Comment: No: D o not add to previous draw Performed By: #### 5 0608 ####[facility] [place] [address], [facility] WBC (Bld) [#/Vol] 7.64 10*3/uL Normal 4.00-10.60 [facility] Comment on above: Order Comment: No: D o not add to previous draw Performed By: #### 5 0608 ####[facility] [place] [address], [facility] MAGNESIUM BLOODon 04-12-2021 Magnesium [Mass/Vol] 1.9 mg/dL Normal 1.9-2.7 [facility] Comment on above: Order Comment: No: D o not add to previous draw Performed By: #### 1 0070, 95855 ####[facility] [place] [address], [facility] POC GLUCOSE LABon 04-12-2021 Glucose [Mass/Vol] 126 mg/dL High 70-100 [facility] Comment on above: Performed By: #### 8 5499 ####[facility] [place] [address], [place] Glucose [Mass/Vol] 131 mg/dL High 70-100 [facility] Comment on above: Performed By: #### 8 5499 ####[facility] Glucose [Mass/Vol] 167 mg/dL High 70-100 [facility] Comment on above: Performed By: #### 8 5499 ####[facility] [facility].[address] POC SARS COV2 ANTIGEN NEGATI CHUCKYon 04-12-2021 POC SARS COV2 ANTIGEN NEG Negative Normal NEGATIVE [facility] Comment on above: Result Comment: Nega tive [...] of clinicalsigns and symptoms consistent with COVID-19.The Zuli COVID-19 Ag Card is a lateral flow immunoassay intended forthe qualitative detection of nucleocapsid protein antigen hfxrDSFZ-HlC-3 in direct nasal swabs from individuals within [...] #### 3 1977 ####[facility] [facility].[address] POC SARS COV2 ANTIGEN NEG Negative Normal NEGATIVE [facility] Comment on above: Result Comment: Nega tive [...] of clinicalsigns and symptoms consistent with COVID-19.The EARTHTORYW COVID-19 Ag Card is a lateral flow immunoassay intended forthe qualitative detection of nucleocapsid protein antigen [id number]-[id number]-0 in direct nasal swabs from individuals within [...] #### 3 1977 ####[facility] [facility] [place] [address], [facility] PORTABLE CHEST 1 VIEWon 03-25 PORTABLE CHEST 1 VIEW Normal [facility] Comment on above: Order Comment: evalu ate for Atelectasis BASIC METABOLIC PANELon 03-24 Calcium [Mass/Vol] 7.9 mg/dL Low 8.6-10.3 [facility] Comment on above: Order Comment: No: D o not add to previous draw Performed By: #### 4 999, 57438, 77147 ####[facility] [facility] [address], [facility] Chloride [Moles/Vol] 100 mmol/L Normal 98-107 [facility] Comment on above: Order Comment: No: D o not add to previous draw Performed By: #### 4 999, 17127, 49265 ####[facility] [facility] [place] [address], [place] CO2 [Moles/Vol] 27 mmol/L Normal 21-31 [facility] Comment on above: Order Comment: No: D o not add to previous draw Performed By: #### 4 999, 59002, 89211 ####[facility] [facility] [address], [facility] Creatinine [Mass/Vol] 0.80 mg/dL Normal 0.70-1.30 [facility] Comment on above: Order Comment: No: D o not add to previous draw Performed By: #### 4 1000, 71044, 00900 ####[facility] [facility] [address], [facility] GFR/1.73 sq M.predicted among blacks MDRD (S/P/Bld) [Vol rate/Area] mL/min/{1.73_m2} Normal >60 [facility] Comment on above: Order Comment: No: D o not add to previous draw Result Comment: Calc ulation may not be valid for patients over 70 years Performed By: #### 4 1000, 82695, 04158 ####[facility] [facility] [address], [facility] GFR/1.73 sq M.predicted among non-blacks MDRD (S/P/Bld) [Vol rate/Area] mL/min/{1.73_m2} Normal >60 [facility] Comment on above: Order Comment: No: D o not add to previous draw Result Comment: Calc ulation may not be valid for patients over 70 years Performed By: #### 4 1000, 71238, 38994 ####[facility] [facility] [place] [place] [address], [facility] Glucose [Mass/Vol] 135 mg/dL High 70-100 [facility] Comment on above: Order Comment: No: D o not add to previous draw Performed By: #### 4 1000, 35638, 47844 ####[facility] [place] [address], [facility] Potassium [Moles/Vol] 3.4 mmol/L Low 3.5-5.1 [facility] Comment on above: Order Comment: No: D o not add to previous draw Performed By: #### 4 1000, 69369, 01404 ####[facility] Sodium [Moles/Vol] 134 mmol/L Low 136-145 [facility] Comment on above: Order Comment: No: D o not add to previous draw Performed By: #### 4 1000, 79130, 07803 ####[facility] Urea nitrogen [Mass/Vol] 21 mg/dL Normal 7-25 [facility] Comment on above: Order Comment: No: D o not add to previous draw Performed By: #### 4 1000, 17142, 64089 ####[facility] CBC COMPLETE BLOOD COUNTon 0 - Erythrocyte distribution width (RBC) [Ratio] 15.0 % Normal 11.5-15.0 [facility] Comment on above: Order Comment: No: D o not add to previous drawNurse draw Performed By: #### 5 0608 ####[facility] Hematocrit (Bld) [Volume fraction] 32.0 % Low 39.0-50.0 [facility] Comment on above: Order Comment: No: D o not add to previous drawNurse draw Performed By: #### 5 0608 ####[facility] Hemoglobin (Bld) [Mass/Vol] 10.6 g/dL Low 13.0-17.0 [facility] Comment on above: Order Comment: No: D o not add to previous drawNurse draw Performed By: #### 5 0608 ####[facility] MCH (RBC) [Entitic mass] 30.5 pg Normal 27.0-33.0 [facility] Comment on above: Order Comment: No: D o not add to previous drawNurse draw Performed By: #### 5 0608 ####[facility] MCHC (RBC) [Mass/Vol] 33.1 g/dL Normal 32.0-35.0 [facility] Comment on above: Order Comment: No: D o not add to previous drawNurse draw Performed By: #### 5 0608 ####[facility] [facility].[address] MCV (RBC) [Entitic vol] 92.2 fL Normal 82.0-98.0 [facility] Comment on above: Order Comment: No: D o not add to previous drawNurse draw Performed By: #### 5 0608 ####[facility] Nucleated RBC/100 WBC (Bld) [Ratio] 0 % Normal 0-0 [facility] Comment on above: Order Comment: No: D o not add to previous drawNurse draw Performed By: #### 5 0608 ####[facility] [facility].[address] PLAT CNT 182 10*3/uL Normal 150-400 [facility] Comment on above: Order Comment: No: D o not add to previous drawNurse draw Performed By: #### 5 0608 ####[place] [address] [facility].[address] RBC (Bld) [#/Vol] 3.47 10*6/uL Low 4.20-5.70 [facility] Comment on above: Order Comment: No: D o not add to previous drawNurse draw Performed By: #### 5 0608 ####[facility] [facility] [place] [place] [address], [facility] WBC (Bld) [#/Vol] 9.87 10*3/uL Normal 4.00-10.60 [facility] Comment on above: Order Comment: No: D o not add to previous drawNurse draw Performed By: #### 5 0608 ####[facility] [place] [address], [place] MAGNESIUM BLOODon 04-11-2021 Magnesium [Mass/Vol] 2.1 mg/dL Normal 1.9-2.7 [facility] Comment on above: Order Comment: No: D o not add to previous draw Performed By: #### 4 1000, 81850, 19451 ####[facility] [place] [address], [place] PHOSPHORUS BLOODon Phosphate [Mass/Vol] 3.7 mg/dL Normal 2.5-5.0 [facility] Comment on above: Order Comment: No: D o not add to previous draw Performed By: #### 4 1000, 09997, 23047 ####[facility] [place] [address], [place] POC GLUCOSE LABon 04-11-2021 Glucose [Mass/Vol] 137 mg/dL High 70-100 [facility] Comment on above: Performed By: #### 8 5499 ####[facility] [place] [address], [place] Glucose [Mass/Vol] 182 mg/dL High 70-100 [facility] Comment on above: Performed By: #### 8 5499 ####[facility] [place] [address], [place] Glucose [Mass/Vol] 171 mg/dL High 70-100 [facility] Comment on above: Performed By: #### 8 5499 ####[facility] [place] [address], [place] Glucose [Mass/Vol] 142 mg/dL High 70-100 [facility] Comment on above: Performed By: #### 8 5499 ####[facility] [place] [address], [place] PORTABLE CHEST 1 VIEWon 03-24 PORTABLE CHEST 1 VIEW Normal [facility] Comment on above: Order Comment: Evalu ate for Pneumothorax PORTABLE CHEST 1 VIEW Normal [facility] Comment on above: Order Comment: evalu ate for Pneumothorax BASIC METABOLIC PANELon 03-24 Calcium [Mass/Vol] 8.2 mg/dL Low 8.6-10.3 [facility] Comment on above: Order Comment: No: D o not add to previous drawNurse draw rn barbara Performed By: #### 4 1000, 59468, 00178 ####[facility] [place] [address], [facility] Chloride [Moles/Vol] 104 mmol/L Normal 98-107 [facility] Comment on above: Order Comment: No: D o not add to previous drawNurse draw rn barbara Performed By: #### 4 1000, 34142, 10854 ####[facility] CO2 [Moles/Vol] 27 mmol/L Normal 21-31 [facility] Comment on above: Order Comment: No: D o not add to previous drawNurse draw rn barbara Performed By: #### 4 1000, 75884, 54590 ####[facility] [place] [address], [facility] Creatinine [Mass/Vol] 0.76 mg/dL Normal 0.70-1.30 [facility] Comment on above: Order Comment: No: D o not add to previous drawNurse draw rn barbara Performed By: #### 4 1000, 68620, 71277 ####[facility] [place] [address], [facility] GFR/1.73 sq M.predicted among blacks MDRD (S/P/Bld) [Vol rate/Area] mL/min/{1.73_m2} Normal >60 [facility] Comment on above: Order Comment: No: D o not add to previous drawNurse draw rn barbara Result Comment: Calc ulation may not be valid for patients over 70 years Performed By: #### 4 1000, 72704, 87052 ####[facility] [place] [address], [facility] GFR/1.73 sq M.predicted among non-blacks MDRD (S/P/Bld) [Vol rate/Area] mL/min/{1.73_m2} Normal >60 [facility] Comment on above: Order Comment: No: D o not add to previous drawNurse draw rn barbara Result Comment: Calc ulation may not be valid for patients over 70 years Performed By: #### 4 1000, 72979, 84250 ####[facility] Glucose [Mass/Vol] 109 mg/dL High 70-100 [facility] Comment on above: Order Comment: No: D o not add to previous drawNurse draw rn barbara Performed By: #### 4 999, 52747, 75597 ####[facility] [place] [address], [facility] Potassium [Moles/Vol] 4.0 mmol/L Normal 3.5-5.1 [facility] Comment on above: Order Comment: No: D o not add to previous drawNurse draw rn barbara Performed By: #### 4 999, 21854, 74278 ####[facility] [place] [address], [facility] Sodium [Moles/Vol] 135 mmol/L Low 136-145 [facility] Comment on above: Order Comment: No: D o not add to previous drawNurse draw rn barbara Performed By: #### 4 1000, 12490, 12195 ####[facility] [facility] [place] [address], [facility] Urea nitrogen [Mass/Vol] 15 mg/dL Normal 7-25 [facility] Comment on above: Order Comment: No: D o not add to previous drawNurse draw rn barbara Performed By: #### 4 1000, 87884, 69954 ####[facility] CBC COMPLETE BLOOD COUNTon 04-10-2021 Erythrocyte distribution width (RBC) [Ratio] 14.7 % Normal 11.5-15.0 [facility] Comment on above: Order Comment: No: D o not add to previous drawNurse draw rn barbara Performed By: #### 5 0608 ####[facility]3000 [facility].[address] Hematocrit (Bld) [Volume fraction] 32.7 % Low 39.0-50.0 [facility] Comment on above: Order Comment: No: D o not add to previous drawNurse draw rn barbara Performed By: #### 5 0608 ####[facility] Hemoglobin (Bld) [Mass/Vol] 10.7 g/dL Low 13.0-17.0 [facility] Comment on above: Order Comment: No: D o not add to previous drawNurse draw rn barbara Performed By: #### 5 0608 ####[facility]3000 [facility].[address] MCH (RBC) [Entitic mass] 30.1 pg Normal 27.0-33.0 [facility] Comment on above: Order Comment: No: D o not add to previous drawNurse draw rn barbara Performed By: #### 5 0608 ####[facility] [facility].[address] MCHC (RBC) [Mass/Vol] 32.7 g/dL Normal 32.0-35.0 [facility] Comment on above: Order Comment: No: D o not add to previous drawNurse draw rn barbara Performed By: #### 5 0608 ####[facility] [place] [address], [facility] MCV (RBC) [Entitic vol] 92.1 fL Normal 82.0-98.0 [facility] Comment on above: Order Comment: No: D o not add to previous drawNurse draw rn barbara Performed By: #### 5 0608 ####[facility] [facility].[address] Nucleated RBC/100 WBC (Bld) [Ratio] 0 % Normal 0-0 [facility] Comment on above: Order Comment: No: D o not add to previous drawNurse draw rn barbara Performed By: #### 5 0608 ####[facility] [facility] [place] [address], [facility] PLAT CNT 176 10*3/uL Normal 150-400 [facility] Comment on above: Order Comment: No: D o not add to previous drawNurse draw rn barbara Performed By: #### 5 0608 ####[facility] [facility].[address] RBC (Bld) [#/Vol] 3.55 10*6/uL Low 4.20-5.70 [facility] Comment on above: Order Comment: No: D o not add to previous drawNurse draw rn barbara Performed By: #### 5 0608 ####[facility] [facility] [place] [address], [facility] WBC (Bld) [#/Vol] 12.43 10*3/uL High 4.00-10.60 [facility] Comment on above: Order Comment: No: D o not add to previous drawNurse draw rn barbara Performed By: #### 5 0608 ####[facility] [facility] [place] [address], [facility] COOXIMETRYon 04-10-2021 COHB 1 % Normal [facility] Comment on above: Performed By: #### 7 0207 ####[facility] [facility] [place] [address], [facility] METHB 0 % Normal [facility] Comment on above: Performed By: #### 7 0207 ####[facility] [place] [address], [facility] Oxygen saturation in Blood 68.2 % Normal 65.0-75.0 [facility] Comment on above: Performed By: #### 7 7 ####[facility] [place] [address], [facility] THB 13.1 g/dL Normal [facility] Comment on above: Performed By: #### 7 7 ####[facility] [place] [address], [facility] LACTATE BLOODon 04-10-2021 Lactate [Moles/Vol] 0.7 mmol/L Normal .5-2.2 [facility] Comment on above: Order Comment: No: D o not add to previous drawNurse draw sumit j[place] Performed By: #### 1 0054 ####[facility] [facility] [place] [address], [facility] MAGNESIUM BLOODon 04-10-2021 Magnesium [Mass/Vol] 2.3 mg/dL Normal 1.9-2.7 [facility] Comment on above: Order Comment: No: D o not add to previous drawNurse draw sumit jimenez Performed By: #### 4 999, [id number], [id number] ####[facility] [place] [address], [facility] PHOSPHORUS BLOODon Phosphate [Mass/Vol] 3.9 mg/dL Normal 2.5-5.0 [facility] Comment on above: Order Comment: No: D o not add to previous drawNurse draw sumit jimenez Performed By: #### 4 999, [id number], [id number] ####[facility] [place] [address], [facility] POC GLUCOSE LABon 04-10-2021 Glucose [Mass/Vol] 168 mg/dL High 70-100 [facility] Comment on above: Performed By: #### 8 5499 ####[facility] [place] [address], [place] Glucose [Mass/Vol] 131 mg/dL High 70-100 [facility] Comment on above: Performed By: #### 8 5499 ####[facility] [place] [address], [place] Glucose [Mass/Vol] 123 mg/dL High 70-100 [facility] Comment on above: Performed By: #### 8 5499 ####[facility] [place] [address], [place] Glucose [Mass/Vol] 170 mg/dL High 70-100 [facility] Comment on above: Performed By: #### 8 5499 ####[facility] [place] [address], [place] Glucose [Mass/Vol] 131 mg/dL High 70-100 [facility] Comment on above: Performed By: #### 8 5499 ####[facility] [place] [address], [place] Glucose [Mass/Vol] 123 mg/dL High 70-100 [facility] Comment on above: Performed By: #### 8 5499 ####[facility] [place] [address], [place] Glucose [Mass/Vol] 92 mg/dL Normal 70-100 [facility] Comment on above: Performed By: #### 8 5499 ####[facility] [place] [address], [place] Glucose [Mass/Vol] 99 mg/dL Normal 70-100 [facility] Comment on above: Performed By: #### 8 5499 ####[facility] [place] [address], [place] Glucose [Mass/Vol] 124 mg/dL High 70-100 [facility] Comment on above: Performed By: #### 8 5499 ####[facility] [place] [address], [facility] Glucose [Mass/Vol] 141 mg/dL High 70-100 [facility] Comment on above: Performed By: #### 8 5499 ####[facility] [place] [address], [facility] Glucose [Mass/Vol] 143 mg/dL High 70-100 [facility] Comment on above: Performed By: #### 8 5499 ####[facility] [place] [address], [facility] PORTABLE CHEST 1 VIEWon 03-24 PORTABLE CHEST 1 VIEW Normal [facility] Comment on above: Order Comment: Check Chest Tube Position, s/p mediasteinal tube removal PORTABLE CHEST 1 VIEW Normal [facility] Comment on above: Order Comment: evalu ate for Atelectasis APTTon 04-09-2021 aPTT Coag (Bld) [Time] 28.6 s Normal 25.0-35.0 Th e [facility] Comment on above: Order Comment: post [...] THIS PURPOSE. Performed By: #### 5 7307, 53338 ####[facility] [place] [address], [facility] ARTERIAL BLOOD GAS WITH ICAo n 04-09-2021 DELIVERY SYSTEMS [place] Normal [facility] Comment on above: Performed By: #### 8 4511 ####[facility] [place] [address], [facility] IONIZED CALCIUM 1.15 mmol/L Normal 1.13-1.32 [facility] Comment on above: Performed By: #### 8 4511 ####[facility] [place] [address], [facility] LPM 4.0 LPM Normal [facility] Comment on above: Performed By: #### 8 4511 ####[facility] [place] [address], [facility] Oxygen (Bld) [Partial pressure] 63 mm[Hg] Low 83-108 [facility] Comment on above: Performed By: #### 8 4511 ####[facility] [place] [address], [facility] Oxygen saturation in Blood 94.2 % Normal 94.0-97.0 [facility] Comment on above: Performed By: #### 8 4511 ####[facility] [place] [address], [facility] BASE EXCESS 3 mmol/L Normal -2-3 [facility] Comment on above: Performed By: #### 8 4511 ####[facility] [place] [address], [facility] DELIVERY SYSTEMS MV Normal [facility] Comment on above: Performed By: #### 8 4511 ####[facility] [place] [address], [facility] FIO2 40 % Normal [facility] Comment on above: Performed By: #### 8 4511 ####[facility] [place] [address], [place] HCO3 (Bld) [Moles/Vol] 27 mmol/L Normal 21-28 Th e [facility] Comment on above: Performed By: #### 8 4511 ####[facility] [place] [address], [place] IONIZED CALCIUM 1.17 mmol/L Normal 1.13-1.32 [facility] Comment on above: Performed By: #### 8 4511 ####[facility] [place] [address], [facility] MIN VOLUME 14.0 Normal [facility] Comment on above: Performed By: #### 8 4511 ####[facility] [place] [address], [facility] MODALITY SPONT Normal [facility] Comment on above: Performed By: #### 8 4511 ####[facility] [place] [address], [facility] Oxygen (Bld) [Partial pressure] 79 mm[Hg] Low 83-108 [facility] Comment on above: Performed By: #### 8 4511 ####[facility] [place] [address], [facility] Oxygen saturation in Blood 96.5 % Normal 94.0-97.0 [facility] Comment on above: Performed By: #### 8 4511 ####[facility] [place] [address], [facility] PCO2 37 mmHg Normal 35-45 [facility] Comment on above: Performed By: #### 8 4511 ####[facility] [place] [address], [facility] PEEP 5.0 CMH20 Normal [facility] Comment on above: Performed By: #### 8 4511 ####[facility] [place] [address], [place] PF RATIO 198 mmHg Normal [facility] Comment on above: Performed By: #### 8 4511 ####[facility] [place] [address], [place] pH (Bld) 7.47 [pH] High 7.35-7.45 [facility] Comment on above: Performed By: #### 8 4511 ####[facility] [place] [address], [facility] PRESSURE SUPPORT 5 Normal [facility] Comment on above: Performed By: #### 8 4511 ####[facility] [place] [address], [facility] BASE EXCESS 2 mmol/L Normal -2-3 [facility] Comment on above: Performed By: #### 8 4511 ####[facility] [place] [address], [facility] DELIVERY SYSTEMS MV Normal [facility] Comment on above: Performed By: #### 8 4511 ####[facility] [place] [address], [facility] FIO2 50 % Normal [facility] Comment on above: Performed By: #### 8 4511 ####[facility] [place] [address], [facility] HCO3 (Bld) [Moles/Vol] 26 mmol/L Normal 21-28 Th e [facility] Comment on above: Performed By: #### 8 4511 ####[facility] [place] [address], [facility] IONIZED CALCIUM 1.17 mmol/L Normal 1.13-1.32 [facility] Comment on above: Performed By: #### 8 4511 ####[facility] [place] [address], [place] MIN VOLUME 13.3 Normal [facility] Comment on above: Performed By: #### 8 4511 ####[facility] [place] [address], [place] MODALITY SIMV Normal [facility] Comment on above: Performed By: #### 8 4511 ####[facility] [place] [address], [facility] Oxygen (Bld) [Partial pressure] 79 mm[Hg] Low 83-108 [facility] Comment on above: Performed By: #### 8 4511 ####[facility] [place] [address], [facility] Oxygen saturation in Blood 96.8 % Normal 94.0-97.0 [facility] Comment on above: Performed By: #### 8 4511 ####[facility] [place] [address], [facility] PCO2 36 mmHg Normal 35-45 [facility] Comment on above: Performed By: #### 8 4511 ####[facility] [place] [address], [facility] PEEP 8.0 CMH20 Normal [facility] Comment on above: Performed By: #### 8 4511 ####[facility] PF RATIO 158 mmHg Normal [facility] Comment on above: Performed By: #### 8 4511 ####[facility] [place] [address], [facility] pH (Bld) 7.46 [pH] High 7.35-7.45 [facility] Comment on above: Performed By: #### 8 4511 ####[facility] [place] [address], [facility] PRESSURE SUPPORT 10 Normal [facility] Comment on above: Performed By: #### 8 4511 ####[facility] [place] [address], [facility] Respiratory rate 18 /min Normal [facility] Comment on above: Performed By: #### 8 4511 ####[facility] [place] [address], [facility] TIDAL VOLUME (VT) CC 700 Normal [facility] Comment on above: Performed By: #### 8 4511 ####[facility] [place] [address], [facility] BASE EXCESS -4 mmol/L Low -2-3 [facility] Comment on above: Performed By: #### 8 4511 ####[facility] [place] [address], [facility] DELIVERY SYSTEMS MV Normal [facility] Comment on above: Performed By: #### 8 4511 ####[facility] [place] [address], [facility] FIO2 80 % Normal [facility] Comment on above: Performed By: #### 8 4511 ####[facility] [place] [address], [facility] HCO3 (Bld) [Moles/Vol] 20 mmol/L Low 21-28 e [facility] Comment on above: Performed By: #### 8 4511 ####[facility] [place] [address], [place] IONIZED CALCIUM 1.14 mmol/L Normal 1.13-1.32 [facility] Comment on above: Performed By: #### 8 4511 ####[facility] [place] [address], [place] MIN VOLUME 13.5 Normal [facility] Comment on above: Performed By: #### 8 4511 ####[facility] [place] [address], [place] MODALITY SIMV Normal [facility] Comment on above: Performed By: #### 8 4511 ####[facility] [place] [address], [place] Oxygen (Bld) [Partial pressure] 121 mm[Hg] Critically high 83-108 [facility] Comment on above: Performed By: #### 8 4511 ####[facility] [place] [address], [facility] Oxygen saturation in Blood 97.1 % High 94.0-97.0 [facility] Comment on above: Performed By: #### 8 4511 ####[facility] [place] [address], [place] PCO2 34 mmHg Low 35-45 [facility] Comment on above: Performed By: #### 8 4511 ####[facility] [place] [address], [place] PEEP 8.0 CMH20 Normal [facility] Comment on above: Performed By: #### 8 4511 ####[facility] [place] [address], [place] pH (Bld) 7.38 [pH] Normal 7.35-7.45 [facility] Comment on above: Performed By: #### 8 4511 ####[facility] [place] [address], [facility] PRESSURE SUPPORT 10 Normal [facility] Comment on above: Performed By: #### 8 4511 ####[facility] [place] [address], [place] Respiratory rate 18 /min Normal [facility] Comment on above: Performed By: #### 8 4511 ####[facility] [place] [address], [place] TIDAL VOLUME (VT) CC 700 Normal [facility] Comment on above: Performed By: #### 8 4511 ####[facility] [place] [address], [place] BASE EXCESS -8 mmol/L Low -2-3 [facility] Comment on above: Performed By: #### 8 4511 ####[facility] DELIVERY SYSTEMS MV Normal [facility] Comment on above: Performed By: #### 8 4511 ####[facility] [address], [facility] FIO2 80 % Normal [facility] Comment on above: Performed By: #### 8 4511 ####[facility] HCO3 (Bld) [Moles/Vol] 18 mmol/L Low 21-28 Th e [facility] Comment on above: Performed By: #### 8 4511 ####[facility] IONIZED CALCIUM 1.06 mmol/L Low 1.13-1.32 [facility] Comment on above: Performed By: #### 8 4511 ####[facility] [facility] [place] [address], [facility] MIN VOLUME 16.6 Normal [facility] Comment on above: Performed By: #### 8 4511 ####[facility] [place] [address], [facility] MODALITY SIMV Normal [facility] Comment on above: Performed By: #### 8 4511 ####[facility] [facility].[address] Oxygen (Bld) [Partial pressure] 86 mm[Hg] Normal 83-108 [facility] Comment on above: Performed By: #### 8 4511 ####[facility] [address], [facility] Oxygen saturation in Blood 96.6 % Normal 94.0-97.0 [facility] Comment on above: Performed By: #### 8 4511 ####[facility] [place] [address], [facility] PCO2 34 mmHg Low 35-45 [facility] Comment on above: Performed By: #### 8 4511 ####[facility] [place] [address], [facility] PEEP 8.0 CMH20 Normal [facility] Comment on above: Performed By: #### 8 4511 ####[facility] [place] [address], [place] PF RATIO 108 mmHg Normal [facility] Comment on above: Performed By: #### 8 4511 ####[facility] [place] [address], [facility] pH (Bld) 7.32 [pH] Low 7.35-7.45 [facility] Comment on above: Performed By: #### 8 4511 ####[facility] [place] [address], [facility] PRESSURE SUPPORT 10 Normal [facility] Comment on above: Performed By: #### 8 4511 ####[facility] [place] [address], [facility] Respiratory rate 18 /min Normal [facility] Comment on above: Performed By: #### 8 4511 ####[facility] [place] [address], [facility] TIDAL VOLUME (VT) CC 700 Normal [facility] Comment on above: Performed By: #### 8 4511 ####[facility] [place] [address], [place] BASIC METABOLIC PANELon 08- Calcium [Mass/Vol] 8.0 mg/dL Low 8.6-10.3 [facility] Comment on above: Order Comment: No: D o not add to previous draw Performed By: #### 0 0071, 96438 ####[facility] [place] [address], [place] Chloride [Moles/Vol] 107 mmol/L Normal 98-107 [facility] Comment on above: Order Comment: No: D o not add to previous draw Performed By: #### 0 0071, 28726 ####[facility] [place] [address], [facility] CO2 [Moles/Vol] 26 mmol/L Normal 21-31 [facility] Comment on above: Order Comment: No: D o not add to previous draw Performed By: #### 0 0071, 33743 ####[facility] [facility] [place] [address], [facility] Creatinine [Mass/Vol] 0.90 mg/dL Normal 0.70-1.30 [facility] Comment on above: Order Comment: No: D o not add to previous draw Performed By: #### 0 0071, 36202 ####[facility] [facility] [place] [address], [facility] GFR/1.73 sq M.predicted among blacks MDRD (S/P/Bld) [Vol rate/Area] mL/min/{1.73_m2} Normal >60 [facility] Comment on above: Order Comment: No: D o not add to previous draw Result Comment: Calc ulation may not be valid for patients over 70 years Performed By: #### 0 0071, [id number] ####[facility] [facility] [place] [address], [facility] GFR/1.73 sq M.predicted among non-blacks MDRD (S/P/Bld) [Vol rate/Area] mL/min/{1.73_m2} Normal >60 [facility] Comment on above: Order Comment: No: D o not add to previous draw Result Comment: Calc ulation may not be valid for patients over 70 years Performed By: #### 0 0071, 16586 ####[facility] [place] [address], [facility] Glucose [Mass/Vol] 126 mg/dL High 70-100 [facility] Comment on above: Order Comment: No: D o not add to previous draw Performed By: #### 0 0071, [id number] ####[facility] [place] [address], [place] Potassium [Moles/Vol] 3.8 mmol/L Normal 3.5-5.1 [facility] Comment on above: Order Comment: No: D o not add to previous draw Performed By: #### 0 0071, 46796 ####[facility] [place] [address], [place] Sodium [Moles/Vol] 136 mmol/L Normal 136-145 [facility] Comment on above: Order Comment: No: D o not add to previous draw Performed By: #### 0 0071, [id number] ####[facility] [place] [address], [place] Urea nitrogen [Mass/Vol] 21 mg/dL Normal 7-25 [facility] Comment on above: Order Comment: No: D o not add to previous draw Performed By: #### 0 0071, 20974 ####[facility] [place] [address], [place] Calcium [Mass/Vol] 7.8 mg/dL Low 8.6-10.3 [facility] Comment on above: Order Comment: post op day 1No: Do not add to previous draw Performed By: #### 1 0, 34238 ####[facility] [place] [address], [place] Chloride [Moles/Vol] 103 mmol/L Normal 98-107 [facility] Comment on above: Order Comment: post op day 1No: Do not add to previous draw Performed By: #### 1 0, 20138 ####[facility] [place] [address], [place] CO2 [Moles/Vol] 20 mmol/L Low 21-31 [facility] Comment on above: Order Comment: post op day 1No: Do not add to previous draw Performed By: #### 1 0, 76370 ####[facility] [place] [address], [facility] Creatinine [Mass/Vol] 1.25 mg/dL Normal 0.70-1.30 [facility] Comment on above: Order Comment: post op day 1No: Do not add to previous draw Performed By: #### 1 0, 80878 ####[facility] [place] [address], [facility] eGFR- non- 56 ml/min/1.73sq m Abnormal >60 [facility] Comment on above: Order Comment: post op day 1No: Do not add to previous draw Result Comment: Calc ulation may not be valid for patients over 70 years Performed By: #### 1 69, 19477 ####[facility] [place] [address], [facility] GFR/1.73 sq M.predicted among blacks MDRD (S/P/Bld) [Vol rate/Area] mL/min/{1.73_m2} Normal >60 [facility] Comment on above: Order Comment: post op day 1No: Do not add to previous draw Result Comment: Calc ulation may not be valid for patients over 70 years Performed By: #### 1 69, 85580 ####[facility] [place] [address], [facility] Glucose [Mass/Vol] 331 mg/dL High 70-100 [facility] Comment on above: Order Comment: post op day 1No: Do not add to previous draw Performed By: #### 1 69, 11993 ####[facility] [place] [address], [place] Potassium [Moles/Vol] 3.2 mmol/L Low 3.5-5.1 [facility] Comment on above: Order Comment: post op day 1No: Do not add to previous draw Performed By: #### 1 0, 28030 ####[facility] [facility].[address] Sodium [Moles/Vol] 135 mmol/L Low 136-145 [facility] Comment on above: Order Comment: post op day 1No: Do not add to previous draw Performed By: #### 1 0, 06606 ####[facility] [facility].[address] Urea nitrogen [Mass/Vol] 24 mg/dL Normal 7-25 [facility] Comment on above: Order Comment: post op day 1No: Do not add to previous draw Performed By: #### 1 0, 65910 ####[facility] [facility].[address] CBC COMPLETE BLOOD COUNTon 04-09-2021 Erythrocyte distribution width (RBC) [Ratio] 14.6 % Normal 11.5-15.0 [facility] Comment on above: Order Comment: post op day 1No: Do not add to previous draw Performed By: #### 5 0608 ####[facility] [facility].[address] Hematocrit (Bld) [Volume fraction] 30.5 % Low 39.0-50.0 [facility] Comment on above: Order Comment: post op day 1No: Do not add to previous draw Performed By: #### 5 0608 ####[facility] [facility] [place] [address], [facility] Hemoglobin (Bld) [Mass/Vol] 10.2 g/dL Low 13.0-17.0 [facility] Comment on above: Order Comment: post op day 1No: Do not add to previous draw Performed By: #### 5 0608 ####[facility] [facility] [place] [address], [facility] MCH (RBC) [Entitic mass] 30.9 pg Normal 27.0-33.0 [facility] Comment on above: Order Comment: post op day 1No: Do not add to previous draw Performed By: #### 5 0608 ####[facility] MCHC (RBC) [Mass/Vol] 33.4 g/dL Normal 32.0-35.0 [facility] Comment on above: Order Comment: post op day 1No: Do not add to previous draw Performed By: #### 5 0608 ####[facility] [facility] [place] [address], [facility] MCV (RBC) [Entitic vol] 92.4 fL Normal 82.0-98.0 [facility] Comment on above: Order Comment: post op day 1No: Do not add to previous draw Performed By: #### 5 0608 ####[facility] [facility].[address] Nucleated RBC/100 WBC (Bld) [Ratio] 0 % Normal 0-0 [facility] Comment on above: Order Comment: post op day 1No: Do not add to previous draw Performed By: #### 5 0608 ####[facility] [facility] [address], [facility] PLAT CNT 232 10*3/uL Normal 150-400 [facility] Comment on above: Order Comment: post op day 1No: Do not add to previous draw Performed By: #### 5 0608 ####[facility] [facility] [address], [facility] RBC (Bld) [#/Vol] 3.30 10*6/uL Low 4.20-5.70 [facility] Comment on above: Order Comment: post op day 1No: Do not add to previous draw Performed By: #### 5 0608 ####[facility] [facility].[address] WBC (Bld) [#/Vol] 17.37 10*3/uL High 4.00-10.60 [facility] Comment on above: Order Comment: post op day 1No: Do not add to previous draw Performed By: #### 5 0608 ####[facility] CBC W/DIFFon 04-09-2021 ABS IMM GRANS 0.1 10*3/uL Normal 0.0-0.2 [facility] Comment on above: Order Comment: No: D o not add to previous draw Performed By: #### 5 0103 ####[facility] ABS NEUTROPHILS 8.3 10*3/uL High 1.6-7.6 [facility] Comment on above: Order Comment: No: D o not add to previous draw Performed By: #### 5 0103 ####[facility] Basophils (Bld) [#/Vol] 0.0 10*3/uL Normal 0.0-0.2 [facility] Comment on above: Order Comment: No: D o not add to previous draw Performed By: #### 5 0103 ####[facility] Basophils/100 WBC (Bld) 0.1 % Normal 0.0-1.0 [facility] Comment on above: Order Comment: No: D o not add to previous draw Performed By: #### 5 0103 ####[facility] [place] [address], [facility] Eosinophils (Bld) [#/Vol] 0.0 10*3/uL Normal 0.0-0.5 [facility] Comment on above: Order Comment: No: D o not add to previous draw Performed By: #### 5 0103 ####[facility] [facility].[address] Eosinophils/100 WBC (Bld) 0.0 % Normal 0.0-6.0 [facility] Comment on above: Order Comment: No: D o not add to previous draw Performed By: #### 5 3 ####[facility] [facility].[address] Erythrocyte distribution width (RBC) [Ratio] 14.4 % Normal 11.5-15.0 [facility] Comment on above: Order Comment: No: D o not add to previous draw Performed By: #### 5 3 ####[facility] Hematocrit (Bld) [Volume fraction] 28.9 % Low 39.0-50.0 [facility] Comment on above: Order Comment: No: D o not add to previous draw Performed By: #### 5 3 ####[facility] Hemoglobin (Bld) [Mass/Vol] 9.6 g/dL Low 13.0-17.0 [facility] Comment on above: Order Comment: No: D o not add to previous draw Performed By: #### 5 3 ####[facility] [facility].[address] IMMATURE GRANS 0.5 % Normal 0.0-1.0 [facility] Comment on above: Order Comment: No: D o not add to previous draw Performed By: #### 5 0103 ####[facility] [place] [address], [facility] Lymphocytes (Bld) [#/Vol] 1.3 10*3/uL Normal 1.2-4.0 [facility] Comment on above: Order Comment: No: D o not add to previous draw Performed By: #### 5 3 ####[facility] Lymphocytes/100 WBC (Bld) 12.1 % Low 20.0-45.0 [facility] Comment on above: Order Comment: No: D o not add to previous draw Performed By: #### 5 0103 ####[facility] MCH (RBC) [Entitic mass] 30.6 pg Normal 27.0-33.0 [facility] Comment on above: Order Comment: No: D o not add to previous draw Performed By: #### 5 0103 ####[facility] MCHC (RBC) [Mass/Vol] 33.2 g/dL Normal 32.0-35.0 [facility] Comment on above: Order Comment: No: D o not add to previous draw Performed By: #### 5 0103 ####[facility] MCV (RBC) [Entitic vol] 92.0 fL Normal 82.0-98.0 [facility] Comment on above: Order Comment: No: D o not add to previous draw Performed By: #### 5 3 ####[facility] Monocytes (Bld) [#/Vol] 1.2 10*3/uL High 0.1-1.0 [facility] Comment on above: Order Comment: No: D o not add to previous draw Performed By: #### 5 0103 ####[facility] MONOS 10.9 % Normal 5.0-12.0 [facility] Comment on above: Order Comment: No: D o not add to previous draw Performed By: #### 5 0103 ####[facility] [place] [address], [facility] Neutrophils/100 WBC (Bld) 76.4 % High 40.0-72.0 [facility] Comment on above: Order Comment: No: D o not add to previous draw Performed By: #### 5 0103 ####[facility] [facility] [id number], [facility] Nucleated RBC/100 WBC (Bld) [Ratio] 0 % Normal 0-0 [facility] Comment on above: Order Comment: No: D o not add to previous draw Performed By: #### 5 0103 ####[facility] [facility] [address], [facility] PLAT CNT 175 10*3/uL Normal 150-400 [facility] Comment on above: Order Comment: No: D o not add to previous draw Performed By: #### 5 0103 ####[facility] [facility] [place] [address], [facility] RBC (Bld) [#/Vol] 3.14 10*6/uL Low 4.20-5.70 [facility] Comment on above: Order Comment: No: D o not add to previous draw Performed By: #### 5 0103 ####[facility] [facility].[place] [id number], [facility] WBC (Bld) [#/Vol] 10.92 10*3/uL High 4.00-10.60 [facility] Comment on above: Order Comment: No: D o not add to previous draw Performed By: #### 5 0103 ####[facility] [id number], [facility] LACTATE BLOODon 04-09-2021 Lactate [Moles/Vol] 0.9 mmol/L Normal .5-2.2 [facility] Comment on above: Order Comment: No: D o not add to previous draw Performed By: #### 1 0054 ####[facility] [place] [address], [facility] Lactate [Moles/Vol] 3.8 mmol/L High .5-2.2 [facility] Comment on above: Order Comment: No: D o not add to previous draw Result Comment: M-CR ITICAL RESULT(S) REVIEWED, CALLED TO AND READ BACK BY [employer]IVER 0855 Performed By: #### 1 0054 ####[facility] [place] [address], [facility] Lactate [Moles/Vol] 7.1 mmol/L Critically high .5-2.2 [facility] Comment on above: Order Comment: post op day 1No: Do not add to previous draw Result Comment: M-VT EVIOUS CRITICAL RESULT Performed By: #### 1 0054 ####[facility] [facility] [place] [address], [facility] MAGNESIUM BLOODon 04-09-2021 Magnesium [Mass/Vol] 2.3 mg/dL Normal 1.9-2.7 [facility] Comment on above: Order Comment: No: D o not add to previous draw Performed By: #### 1 0070, 32292 ####[facility] [facility] [place] [address], [facility] Magnesium [Mass/Vol] 2.2 mg/dL Normal 1.9-2.7 [facility] Comment on above: Order Comment: added from prior Performed By: #### 0 0071, 65848 ####[facility] [place] [address], [place] Magnesium [Mass/Vol] 2.4 mg/dL Normal 1.9-2.7 [facility] Comment on above: Order Comment: post op day 1No: Do not add to previous draw Performed By: #### 1 0070, 65584 ####[facility] [place] [address], [facility] Operative Reporton Operative Report Normal [facility] POC GLUCOSE LABon 04-09-2021 Glucose [Mass/Vol] 162 mg/dL High 70-100 [facility] Comment on above: Performed By: #### 8 5499 ####[facility] [place] [address], [place] Glucose [Mass/Vol] 128 mg/dL High 70-100 [facility] Comment on above: Performed By: #### 8 5499 ####[facility] [place] [address], [place] Glucose [Mass/Vol] 117 mg/dL High 70-100 [facility] Comment on above: Performed By: #### 8 5499 ####[facility] [place] [address], [place] Glucose [Mass/Vol] 110 mg/dL High 70-100 [facility] Comment on above: Performed By: #### 8 5499 ####[facility] [place] [address], [place] Glucose [Mass/Vol] 65 mg/dL Low 70-100 [facility] Comment on above: Performed By: #### 8 5499 ####[facility] [place] [address], [place] Glucose [Mass/Vol] 86 mg/dL Normal 70-100 [facility] Comment on above: Performed By: #### 8 5499 ####[facility] [place] [address], [place] Glucose [Mass/Vol] 127 mg/dL High 70-100 [facility] Comment on above: Performed By: #### 8 5499 ####[facility] [place] [address], [place] Glucose [Mass/Vol] 230 mg/dL High 70-100 [facility] Comment on above: Performed By: #### 8 5499 ####[facility] [place] [address], [place] Glucose [Mass/Vol] 244 mg/dL High 70-100 [facility] Comment on above: Performed By: #### 8 5499 ####[facility] [place] [address], [place] Glucose [Mass/Vol] 283 mg/dL High 70-100 [facility] Comment on above: Performed By: #### 8 5499 ####[facility] [place] [address], [place] Glucose [Mass/Vol] 326 mg/dL High 70-100 [facility] Comment on above: Performed By: #### 8 5499 ####[facility] [place] [address], [place] Glucose [Mass/Vol] 347 mg/dL High 70-100 [facility] Comment on above: Performed By: #### 8 5499 ####[facility] [place] [address], [place] Glucose [Mass/Vol] 258 mg/dL High 70-100 [facility] Comment on above: Performed By: #### 8 5499 ####[facility] [place] [address], [place] Glucose [Mass/Vol] 334 mg/dL High 70-100 [facility] Comment on above: Performed By: #### 8 5499 ####[facility] [place] [address], [place] Glucose [Mass/Vol] 338 mg/dL High 70-100 [facility] Comment on above: Performed By: #### 8 5499 ####[facility] [place] [address], [place] Glucose [Mass/Vol] 321 mg/dL High 70-100 [facility] Comment on above: Performed By: #### 8 5499 ####[facility] Glucose [Mass/Vol] 302 mg/dL High 70-100 [facility] Comment on above: Performed By: #### 8 5499 ####[facility] PORTABLE CHEST 1 VIEWon 03-24 PORTABLE CHEST 1 VIEW Normal [facility] Comment on above: Order Comment: Check Chest Tube Position POTASSIUM BLOODon 04-09-2021 Potassium [Moles/Vol] 4.6 mmol/L Normal 3.5-5.1 [facility] Comment on above: Order Comment: No: D o not add to previous draw Performed By: #### 1 0070, 44301 ####[facility] PROTHROMBIN TIMEon INR Coag (PPP) [Relative time] 1.22 {INR} High 0.91-1.16 [facility] Comment on above: Order Comment: post [...] OF ACTION, CLINICALEFFECTIVENESS, AND OPTIMAL THERAPEUTIC RANGE. [id number]. Performed By: #### 5 7307, 91895 ####[facility] [place] [address], [place] PT Coag (PPP) [Time] 15.4 s High 12.3-14.8 [facility] Comment on above: Order Comment: post op day 1No: Do not add to previous draw Result Comment: ALL RESULTS MUST BE INTERPRETED WITH RESPECT TO BLOOD DRAWING ARTIFACTOR DILUTION ERROR OF ANTICOAGULANT AT THE TIME OF SAMPLING. Performed By: #### 5 7307, 52576 ####[facility] [place] [address], [facility] ACTIVATED CLOTTING TIMEon ACTIVATED CLOTTING TIME 121 sec Normal 82-152 [facility] Comment on above: Performed By: #### 3 0739 ####[facility] [place] [address], [place] ACTIVATED CLOTTING TIME 305 sec High 82-152 [facility] Comment on above: Performed By: #### 3 0739 ####[facility] [place] [address], [place] ACTIVATED CLOTTING TIME 286 sec High 82-152 [facility] Comment on above: Performed By: #### 3 0739 ####[facility] [place] [address], [place] ACTIVATED CLOTTING TIME 279 sec High 82-152 [facility] Comment on above: Performed By: #### 3 0739 ####[facility] [place] [address], [place] ACTIVATED CLOTTING TIME 325 sec High 82-152 [facility] Comment on above: Performed By: #### 3 0739 ####[facility] [place] [address], [place] ACTIVATED CLOTTING TIME 184 sec High 82-152 [facility] Comment on above: Performed By: #### 3 0739 ####[facility] [place] [address], [facility] ACTIVATED CLOTTING TIME 121 sec Normal 82-152 [facility] Comment on above: Performed By: #### 3 0739 ####[facility] [facility].[address] APTTon 04-08-2021 aPTT Coag (Bld) [Time] 30.4 s Normal 25.0-35.0 Th e [facility] Comment on above: Order Comment: No: [...] THIS PURPOSE. Performed By: #### 5 6101, 66990 ####[facility] [facility] [place] [address], [facility] aPTT Coag (Bld) [Time] 30.6 s Normal 25.0-35.0 Th e [facility] Comment on above: Result Comment: ALL RESULTS [...] THIS PURPOSE. Performed By: #### 5 7307, 97526, 36159 ####[facility] [facility].[address] ARTERIAL BLOOD GAS WITH ICAo n 04-08-2021 BASE EXCESS -4 mmol/L Low -2-3 [facility] Comment on above: Order Comment: on ar rival to CVU Performed By: #### 8 4511 ####[facility] [place] [address], [facility] DELIVERY SYSTEMS MV Normal [facility] Comment on above: Order Comment: on ar rival to CVU Performed By: #### 8 4511 ####[facility] [place] [address], [place] FIO2 70 % Normal [facility] Comment on above: Order Comment: on ar rival to CVU Performed By: #### 8 4511 ####[facility] [place] [address], [facility] HCO3 (Bld) [Moles/Vol] 21 mmol/L Normal 21-28 e [facility] Comment on above: Order Comment: on ar rival to CVU Performed By: #### 8 4511 ####[facility] [place] [address], [facility] IONIZED CALCIUM 1.09 mmol/L Low 1.13-1.32 [facility] Comment on above: Order Comment: on ar rival to CVU Performed By: #### 8 4511 ####[facility] [place] [address], [place] MIN VOLUME 14.2 Normal [facility] Comment on above: Order Comment: on ar rival to CVU Result Comment: Resu lt changed by DOTTY on 04/08/2021 19:16. The previous value was16.0. Performed By: #### 8 4511 ####[facility] [place] [address], [place] MODALITY SIMV Normal [facility] Comment on above: Order Comment: on ar rival to CVU Performed By: #### 8 4511 ####[facility] [place] [address], [place] Oxygen (Bld) [Partial pressure] 69 mm[Hg] Low 83-108 [facility] Comment on above: Order Comment: on ar rival to CVU Performed By: #### 8 4511 ####[facility] [place] [address], [place] Oxygen saturation in Blood 93.8 % Low 94.0-97.0 [facility] Comment on above: Order Comment: on ar rival to CVU Performed By: #### 8 4511 ####[facility] [place] [address], [place] PCO2 36 mmHg Normal 35-45 [facility] Comment on above: Order Comment: on ar rival to CVU Performed By: #### 8 4511 ####[facility] [place] [address], [place] PEEP 8.0 CMH20 Normal [facility] Comment on above: Order Comment: on ar rival to CVU Performed By: #### 8 4511 ####[facility] [place] [address], [place] PF RATIO 99 mmHg Normal [facility] Comment on above: Order Comment: on ar rival to CVU Performed By: #### 8 4511 ####[facility] [place] [address], [place] pH (Bld) 7.37 [pH] Normal 7.35-7.45 [facility] Comment on above: Order Comment: on ar rival to CVU Performed By: #### 8 4511 ####[facility] [place] [address], [place] PRESSURE SUPPORT 10 Normal [facility] Comment on above: Order Comment: on ar rival to CVU Performed By: #### 8 4511 ####[facility] [place] [address], [place] Respiratory rate 16 /min Normal [facility] Comment on above: Order Comment: on ar rival to CVU Performed By: #### 8 4511 ####[facility] [place] [address], [facility] TIDAL VOLUME (VT) CC 700 Normal The [facility] Comment on above: Order Comment: on ar rival to CVU Performed By: #### 8 4511 ####[facility] [place] [address], [facility] BASE EXCESS -4 mmol/L Low -2-3 The [facility] Comment on above: Performed By: #### 8 4511 ####[facility], [place] [id number] [place] [address] [employer] VENT Normal The [facility] Comment on above: Performed By: #### 8 4511 ####[facility] [place] [address], [facility] FIO2 70 % Normal The [facility] Comment on above: Performed By: #### 8 4511 ####[facility] [place] [address], [facility] HCO3 (Bld) [Moles/Vol] 23 mmol/L Normal 21-28 Th e [facility] Comment on above: Performed By: #### 8 4511 ####[facility] [place] [address], [facility] IONIZED CALCIUM 1.14 mmol/L Normal 1.13-1.32 The [facility] Comment on above: Performed By: #### 8 4511 ####[facility] [place] [address], [facility] MIN VOLUME 9.0 Normal The [facility] Comment on above: Performed By: #### 8 4511 ####[facility] [place] [address], [facility] MODALITY SIMV Normal The [facility] Comment on above: Performed By: #### 8 4511 ####[facility] [place] [address], [place] Oxygen (Bld) [Partial pressure] 70 mm[Hg] Low 83-108 The [facility] Comment on above: Performed By: #### 8 4511 ####[facility] [place] [address], [place] Oxygen saturation in Blood 92.5 % Low 94.0-97.0 The [facility] Comment on above: Performed By: #### 8 4511 ####[facility] [place] [address], [place] PCO2 48 mmHg High 35-45 The [facility] Comment on above: Performed By: #### 8 4511 ####[facility] [place] [address], [place] PEEP 8.0 CMH20 Normal The [facility] Comment on above: Performed By: #### 8 4511 ####[facility] [place] [address], [place] PF RATIO 100 mmHg Normal The [facility] Comment on above: Performed By: #### 8 4511 ####[facility] [place] [address], [place] pH (Bld) 7.28 [pH] Low 7.35-7.45 The [facility] Comment on above: Performed By: #### 8 4511 ####[facility] [place] [address], [place] PRESSURE SUPPORT 10 Normal The [facility] Comment on above: Performed By: #### 8 4511 ####[facility] [place] [address], [place] Respiratory rate 14 /min Normal The [facility] Comment on above: Performed By: #### 8 4511 ####[facility] TIDAL VOLUME (VT) CC 550 Normal The [facility] Comment on above: Performed By: #### 8 4511 ####[facility] [place] [address], [facility] BASIC METABOLIC PANELon 08- Calcium [Mass/Vol] 7.7 mg/dL Low 8.6-10.3 The [facility] Comment on above: Order Comment: No: D o not add to previous draw Performed By: #### 1 0070, 14818, 53773 ####[facility] [place] [address], [facility] Chloride [Moles/Vol] 103 mmol/L Normal 98-107 The [facility] Comment on above: Order Comment: No: D o not add to previous draw Performed By: #### 1 0070, 57941, 25697 ####[facility] [place] [address], [facility] CO2 [Moles/Vol] 21 mmol/L Normal 21-31 The [facility] Comment on above: Order Comment: No: D o not add to previous draw Performed By: #### 1 0070, 45496, 34720 ####[facility] [place] [address], [facility] Creatinine [Mass/Vol] 1.15 mg/dL Normal 0.70-1.30 The [facility] Comment on above: Order Comment: No: D o not add to previous draw Performed By: #### 1 0070, 73232, 42807 ####[facility] [place] [address], [facility] GFR/1.73 sq M.predicted among blacks MDRD (S/P/Bld) [Vol rate/Area] mL/min/{1.73_m2} Normal >60 The [facility] Comment on above: Order Comment: No: D o not add to previous draw Result Comment: Calc ulation may not be valid for patients over 70 years Performed By: #### 1 0070, 15410, 69477 ####[facility] [place] [address], [facility] GFR/1.73 sq M.predicted among non-blacks MDRD (S/P/Bld) [Vol rate/Area] mL/min/{1.73_m2} Normal >60 The [facility] Comment on above: Order Comment: No: D o not add to previous draw Result Comment: Calc ulation may not be valid for patients over 70 years Performed By: #### 1 0070, 55295, 65021 ####[facility] [place] [address], [facility] Glucose [Mass/Vol] 224 mg/dL High 70-100 The [facility] Comment on above: Order Comment: No: D o not add to previous draw Performed By: #### 1 0, 78441, 51218 ####[facility] [place] [address], [facility] Potassium [Moles/Vol] 3.9 mmol/L Normal 3.5-5.1 The [facility] Comment on above: Order Comment: No: D o not add to previous draw Performed By: #### 1 0070, 25758, 14511 ####[facility] [place] [address], [facility] Sodium [Moles/Vol] 134 mmol/L Low 136-145 The [facility] Comment on above: Order Comment: No: D o not add to previous draw Performed By: #### 1 0070, 57696, 55559 ####[facility] [place] [address], [facility] Urea nitrogen [Mass/Vol] 22 mg/dL Normal 7-25 The [facility] Comment on above: Order Comment: No: D o not add to previous draw Performed By: #### 1 0070, 93083, 65893 ####[facility] [address], [facility] Calcium [Mass/Vol] 7.7 mg/dL Low 8.6-10.3 The [facility] Comment on above: Performed By: #### 1 0070, 00946, 16859 ####[facility] [place] [address], [place] Chloride [Moles/Vol] 105 mmol/L Normal 98-107 The [facility] Comment on above: Performed By: #### 1 0070, 17101, 99726 ####[facility] [place] [address], [place] CO2 [Moles/Vol] 24 mmol/L Normal 21-31 The [facility] Comment on above: Performed By: #### 1 0070, 43381, 10882 ####[facility] [place] [address], [place] Creatinine [Mass/Vol] 0.81 mg/dL Normal 0.70-1.30 The [facility] Comment on above: Performed By: #### 1 0070, 02024, 84461 ####[facility] [place] [address], [place] GFR/1.73 sq M.predicted among blacks MDRD (S/P/Bld) [Vol rate/Area] mL/min/{1.73_m2} Normal >60 The [facility] Comment on above: Result Comment: Calc ulation may not be valid for patients over 70 years Performed By: #### 1 0070, 50992, 95505 ####[facility] [place] [address], [place] GFR/1.73 sq M.predicted among non-blacks MDRD (S/P/Bld) [Vol rate/Area] mL/min/{1.73_m2} Normal >60 The [facility] Comment on above: Result Comment: Calc ulation may not be valid for patients over 70 years Performed By: #### 1 0070, 82043, 43302 ####[facility] [place] [address], [place] Glucose [Mass/Vol] 189 mg/dL High 70-100 The [facility] Comment on above: Performed By: #### 1 0070, 77953, 50070 ####[facility] [place] [address], [place] Potassium [Moles/Vol] 4.3 mmol/L Normal 3.5-5.1 The [facility] Comment on above: Performed By: #### 1 0070, 49146, 66580 ####[facility] [place] [address], [place] Sodium [Moles/Vol] 133 mmol/L Low 136-145 The [facility] Comment on above: Performed By: #### 1 0, 46318, 47168 ####[facility] [place] [address], [place] Urea nitrogen [Mass/Vol] 20 mg/dL Normal 7-25 [facility] Comment on above: Performed By: #### 1 0070, 74546, 73995 ####[facility] [place] [address], [place] Calcium [Mass/Vol] 8.7 mg/dL Normal 8.6-10.3 The [facility] Comment on above: Order Comment: No: D o not add to previous draw Performed By: #### 0 0071, 45759, 02847 ####[facility] [place] [address], [place] Chloride [Moles/Vol] 103 mmol/L Normal 98-107 The [facility] Comment on above: Order Comment: No: D o not add to previous draw Performed By: #### 0 0071, 38375, 51623 ####[facility] [place] [address], [place] CO2 [Moles/Vol] 26 mmol/L Normal 21-31 The [facility] Comment on above: Order Comment: No: D o not add to previous draw Performed By: #### 0 0071, 20506, 36491 ####[facility] [place] [address], [facility] Creatinine [Mass/Vol] 0.74 mg/dL Normal 0.70-1.30 [facility] Comment on above: Order Comment: No: D o not add to previous draw Performed By: #### 0 0071, 15248, 61869 ####[facility] [place] [address], [facility] GFR/1.73 sq M.predicted among blacks MDRD (S/P/Bld) [Vol rate/Area] mL/min/{1.73_m2} Normal >60 The [facility] Comment on above: Order Comment: No: D o not add to previous draw Result Comment: Calc ulation may not be valid for patients over 70 years Performed By: #### 0 0071, 64022, 78217 ####[facility] [place] [address], [facility] GFR/1.73 sq M.predicted among non-blacks MDRD (S/P/Bld) [Vol rate/Area] mL/min/{1.73_m2} Normal >60 The [facility] Comment on above: Order Comment: No: D o not add to previous draw Result Comment: Calc ulation may not be valid for patients over 70 years Performed By: #### 0 0071, 12902, 64648 ####[facility] [place] [address], [place] Glucose [Mass/Vol] 107 mg/dL High 70-100 The [facility] Comment on above: Order Comment: No: D o not add to previous draw Performed By: #### 0 0071, 93436, 42927 ####[facility] [place] [address], [place] Potassium [Moles/Vol] 4.1 mmol/L Normal 3.5-5.1 [facility] Comment on above: Order Comment: No: D o not add to previous draw Performed By: #### 0 0071, 47044, 56828 ####[facility] Sodium [Moles/Vol] 133 mmol/L Low 136-145 [facility] Comment on above: Order Comment: No: D o not add to previous draw Performed By: #### 0 0071, 51612, 11125 ####[facility] Urea nitrogen [Mass/Vol] 19 mg/dL Normal 7-25 [facility] Comment on above: Order Comment: No: D o not add to previous draw Performed By: #### 0 0071, 75418, 67967 ####[facility] [facility] CBC COMPLETE BLOOD COUNTon 0 - Erythrocyte distribution width (RBC) [Ratio] 14.4 % Normal 11.5-15.0 [facility] Comment on above: Order Comment: No: D o not add to previous draw Performed By: #### 5 0608 ####[facility] [facility] Hematocrit (Bld) [Volume fraction] 33.4 % Low 39.0-50.0 [facility] Comment on above: Order Comment: No: D o not add to previous draw Performed By: #### 5 0608 ####[facility] Hemoglobin (Bld) [Mass/Vol] 10.9 g/dL Low 13.0-17.0 [facility] Comment on above: Order Comment: No: D o not add to previous draw Performed By: #### 5 0608 ####[facility] [facility].[address] MCH (RBC) [Entitic mass] 30.4 pg Normal 27.0-33.0 [facility] Comment on above: Order Comment: No: D o not add to previous draw Performed By: #### 5 0608 ####[facility] [place] [address], [facility] MCHC (RBC) [Mass/Vol] 32.6 g/dL Normal 32.0-35.0 [facility] Comment on above: Order Comment: No: D o not add to previous draw Performed By: #### 5 0608 ####[address] MCV (RBC) [Entitic vol] 93.3 fL Normal 82.0-98.0 [facility] Comment on above: Order Comment: No: D o not add to previous draw Performed By: #### 5 0608 ####[facility] [facility].[address] Nucleated RBC/100 WBC (Bld) [Ratio] 0 % Normal 0-0 [facility] Comment on above: Order Comment: No: D o not add to previous draw Performed By: #### 5 0608 ####[facility] [facility].[address] PLAT CNT 228 10*3/uL Normal 150-400 [facility] Comment on above: Order Comment: No: D o not add to previous draw Performed By: #### 5 0608 ####[address] [place] [address], [facility] RBC (Bld) [#/Vol] 3.58 10*6/uL Low 4.20-5.70 [facility] Comment on above: Order Comment: No: D o not add to previous draw Performed By: #### 5 0608 ####[facility] WBC (Bld) [#/Vol] 18.53 10*3/uL High 4.00-10.60 [facility] Comment on above: Order Comment: No: D o not add to previous draw Performed By: #### 5 0608 ####[address] Erythrocyte distribution width (RBC) [Ratio] 14.6 % Normal 11.5-15.0 [facility] Comment on above: Performed By: #### 5 0608 ####[address] Hematocrit (Bld) [Volume fraction] 35.5 % Low 39.0-50.0 [facility] Comment on above: Performed By: #### 5 0608 ####[address] Hemoglobin (Bld) [Mass/Vol] 11.5 g/dL Low 13.0-17.0 [facility] Comment on above: Performed By: #### 5 0608 ####[address] MCH (RBC) [Entitic mass] 30.5 pg Normal 27.0-33.0 [facility] Comment on above: Performed By: #### 5 0608 ####[address] MCHC (RBC) [Mass/Vol] 32.4 g/dL Normal 32.0-35.0 [facility] Comment on above: Performed By: #### 5 0608 ####[address] MCV (RBC) [Entitic vol] 94.2 fL Normal 82.0-98.0 [facility] Comment on above: Performed By: #### 5 0608 ####[facility] [facility] [place] [address], [facility] Nucleated RBC/100 WBC (Bld) [Ratio] 0 % Normal 0-0 [facility] Comment on above: Performed By: #### 5 0608 ####[facility] [facility] [place] [address], [facility] PLAT CNT 219 10*3/uL Normal 150-400 [facility] Comment on above: Performed By: #### 5 0608 ####[facility] [facility] [place] [address], [facility] RBC (Bld) [#/Vol] 3.77 10*6/uL Low 4.20-5.70 [facility] Comment on above: Performed By: #### 5 0608 ####[facility] [facility] [place] [address], [facility] WBC (Bld) [#/Vol] 14.37 10*3/uL High 4.00-10.60 [facility] Comment on above: Performed By: #### 5 0608 ####[place] [address] [facility] [place] [place] [address], [facility] Erythrocyte distribution width (RBC) [Ratio] 14.7 % Normal 11.5-15.0 [facility] Comment on above: Order Comment: No: D o not add to previous draw Performed By: #### 5 0608 ####[facility] [facility] [place] [place] [address], [facility] Hematocrit (Bld) [Volume fraction] 40.7 % Normal 39.0-50.0 [facility] Comment on above: Order Comment: No: D o not add to previous draw Performed By: #### 5 0608 ####[address] [place] [address], [facility] Hemoglobin (Bld) [Mass/Vol] 13.5 g/dL Normal 13.0-17.0 [facility] Comment on above: Order Comment: No: D o not add to previous draw Performed By: #### 5 0608 ####[facility] [facility].[address] MCH (RBC) [Entitic mass] 30.5 pg Normal 27.0-33.0 [facility] Comment on above: Order Comment: No: D o not add to previous draw Performed By: #### 5 0608 ####[facility] MCHC (RBC) [Mass/Vol] 33.2 g/dL Normal 32.0-35.0 [facility] Comment on above: Order Comment: No: D o not add to previous draw Performed By: #### 5 0608 ####[facility] [facility].[address] MCV (RBC) [Entitic vol] 92.1 fL Normal 82.0-98.0 [facility] Comment on above: Order Comment: No: D o not add to previous draw Performed By: #### 5 0608 ####[place] [address] [facility].[address] Nucleated RBC/100 WBC (Bld) [Ratio] 0 % Normal 0-0 [facility] Comment on above: Order Comment: No: D o not add to previous draw Performed By: #### 5 0608 ####[facility] PLAT CNT 233 10*3/uL Normal 150-400 [facility] Comment on above: Order Comment: No: D o not add to previous draw Performed By: #### 5 0608 ####[facility] [place] [address].[address] RBC (Bld) [#/Vol] 4.42 10*6/uL Normal 4.20-5.70 [facility] Comment on above: Order Comment: No: D o not add to previous draw Performed By: #### 5 0608 ####[facility] [place] [address], [facility] WBC (Bld) [#/Vol] 7.11 10*3/uL Normal 4.00-10.60 [facility] Comment on above: Order Comment: No: D o not add to previous draw Performed By: #### 5 0608 ####[facility] [place] [address], [facility] COOXIMETRYon 04-08-2021 COHB 1 % Normal [facility] Comment on above: Performed By: #### 7 0207 ####[facility] [place] [address], [facility] METHB 1 % Normal [facility] Comment on above: Performed By: #### 7 0207 ####[facility] [place] [address], [facility] Oxygen saturation in Blood 77.5 % High 65.0-75.0 [facility] Comment on above: Performed By: #### 7 0207 ####[facility] [place] [address], [facility] THB 10.7 g/dL Normal [facility] Comment on above: Performed By: #### 7 0207 ####[facility] [place] [address], [facility] FERRITINon 04-08-2021 Ferritin [Mass/Vol] 116 ng/mL Normal 24-336 [facility] Comment on above: Performed By: #### 1 0070, 48802, 92576 ####[facility] [place] [address], [facility] FIBRINOGENon 04-08-2021 FIBRINOGEN 362 mg/dL Normal 150-425 [facility] Comment on above: Performed By: #### 5 7307, 17443, 54852 ####[facility] [place] [address], [place] LACTATE BLOODon 04-08-2021 Lactate [Moles/Vol] 3.7 mmol/L High .5-2.2 [facility] Comment on above: Order Comment: No: D o not add to previous draw Result Comment: M-CR ITICAL RESULT(S) REVIEWED, CALLED TO AND READ BACK BY Kleber TRAN at 2203. Performed By: #### 1 0054 ####[facility] [place] [address], [place] Lactate [Moles/Vol] 2.5 mmol/L High .5-2.2 [facility] Comment on above: Order Comment: No: D o not add to previous draw Performed By: #### 1 0054 ####[facility] [place] [address], [place] Lactate [Moles/Vol] 1.0 mmol/L Normal .5-2.2 [facility] Comment on above: Performed By: #### 1 0054 ####[facility] [place] [address], [place] MAGNESIUM BLOODon 04-08-2021 Magnesium [Mass/Vol] 2.3 mg/dL Normal 1.9-2.7 [facility] Comment on above: Order Comment: No: D o not add to previous draw Performed By: #### 1 0070, 22974, 57423 ####[facility] [place] [address], [place] Magnesium [Mass/Vol] 1.9 mg/dL Normal 1.9-2.7 [facility] Comment on above: Performed By: #### 1 0070, 54424, 87494 ####[facility] [place] [address], [place] Magnesium [Mass/Vol] 2.2 mg/dL Normal 1.9-2.7 [facility] Comment on above: Order Comment: No: D o not add to previous draw Performed By: #### 0 0071, 10470, 97513 ####[facility] [place] [address], [facility] PERFUSION BLOOD PANELon 03-24 BASE EXCESS -3.0 mmol/L Low -2.0-3.0 [facility] Comment on above: Performed By: #### 3 0738 ####[facility] [place] [address], [facility] Glucose [Mass/Vol] 193 mg/dL High 70-105 [facility] Comment on above: Performed By: #### 3 0738 ####[facility] [place] [address], [facility] Hematocrit (Bld) [Volume fraction] 36 % Low 38-51 [facility] Comment on above: Performed By: #### 3 0738 ####[facility] [place] [address], [facility] Hemoglobin (Bld) [Mass/Vol] 12.2 g/dL Normal 12.0-17.0 [facility] Comment on above: Performed By: #### 3 0738 ####[facility] [place] [address], [facility] IONIZED CALCIUM 1.22 mmol/L Normal 1.12-1.32 [facility] Comment on above: Performed By: #### 3 0738 ####[facility] [place] [address], [facility] Oxygen (Bld) [Partial pressure] 131.0 mm[Hg] High 80.0-105.0 [facility] Comment on above: Performed By: #### 3 0738 ####[facility] [place] [address], [facility] PCO2 51.6 mmHg High 35.0-45.0 [facility] Comment on above: Performed By: #### 3 0738 ####[facility] [place] [address], [facility] pH (Bld) 7.28 [pH] Low 7.35-7.45 [facility] [facility] Comment on above: Performed By: #### 3 0738 ####[facility] [place] [address], [facility] Potassium [Moles/Vol] 4.4 mmol/L Normal 3.5-4.9 [facility] Comment on above: Performed By: #### 3 0738 ####[facility] [place] [address], [facility] Sodium [Moles/Vol] 139 mmol/L Normal 138-146 [facility] Comment on above: Performed By: #### 3 0738 ####[facility] [place] [address], [facility] BASE EXCESS -2.0 mmol/L Normal -2.0-3.0 [facility] Comment on above: Performed By: #### 3 0738 ####[facility] [place] [address], [facility] Glucose [Mass/Vol] 156 mg/dL High 70-105 [facility] Comment on above: Performed By: #### 3 0738 ####[facility] [place] [address], [place] Hematocrit (Bld) [Volume fraction] 36 % Low 38-51 [facility] Comment on above: Performed By: #### 3 0738 ####[facility] [place] [address], [facility] Hemoglobin (Bld) [Mass/Vol] 12.2 g/dL Normal 12.0-17.0 [facility] Comment on above: Performed By: #### 3 0738 ####[facility] IONIZED CALCIUM 1.17 mmol/L Normal 1.12-1.32 [facility] Comment on above: Performed By: #### 3 0738 ####[facility] [facility].[address] Oxygen (Bld) [Partial pressure] 196.0 mm[Hg] High 80.0-105.0 [facility] Comment on above: Performed By: #### 3 0738 ####[address] PCO2 46.9 mmHg High 35.0-45.0 [facility] Comment on above: Performed By: #### 3 0738 ####[place] [address] [facility].[address] pH (Bld) 7.33 [pH] Low 7.35-7.45 [facility] Comment on above: Performed By: #### 3 0738 ####[place] [address] [facility].[address] Potassium [Moles/Vol] 4.5 mmol/L Normal 3.5-4.9 [facility] Comment on above: Performed By: #### 3 0738 ####[facility] [facility].[address] Sodium [Moles/Vol] 139 mmol/L Normal 138-146 [facility] Comment on above: Performed By: #### 3 0738 ####[place] [address] [facility].[address] BASE EXCESS -1.0 mmol/L Normal -2.0-3.0 [facility] Comment on above: Performed By: #### 3 0738 ####[facility] [place] [address], [facility] Glucose [Mass/Vol] 133 mg/dL High 70-105 [facility] Comment on above: Performed By: #### 3 0738 ####[facility] [place] [address], [place] Hematocrit (Bld) [Volume fraction] 37 % Low 38-51 [facility] Comment on above: Performed By: #### 3 0738 ####[facility] [place] [address], [facility] Hemoglobin (Bld) [Mass/Vol] 12.6 g/dL Normal 12.0-17.0 [facility] Comment on above: Performed By: #### 3 0738 ####[facility] [place] [address], [facility] IONIZED CALCIUM 1.19 mmol/L Normal 1.12-1.32 [facility] Comment on above: Performed By: #### 3 0738 ####[facility] [place] [address], [facility] Oxygen (Bld) [Partial pressure] 184.0 mm[Hg] High 80.0-105.0 [facility] Comment on above: Performed By: #### 3 0738 ####[facility] [place] [address], [facility] PCO2 46.6 mmHg High 35.0-45.0 [facility] Comment on above: Performed By: #### 3 0738 ####[facility] [place] [address], [place] pH (Bld) 7.34 [pH] Low 7.35-7.45 [facility] Comment on above: Performed By: #### 3 0738 ####[facility] [place] [address], [place] Potassium [Moles/Vol] 4.3 mmol/L Normal 3.5-4.9 [facility] Comment on above: Performed By: #### 3 0738 ####[facility] [place] [address], [facility] Sodium [Moles/Vol] 139 mmol/L Normal 138-146 [facility] Comment on above: Performed By: #### 3 0738 ####[facility] [place] [address], [facility] BASE EXCESS -1.0 mmol/L Normal -2.0-3.0 [facility] Comment on above: Performed By: #### 3 0738 ####[facility] Glucose [Mass/Vol] 118 mg/dL High 70-105 [facility] Comment on above: Performed By: #### 3 0738 ####[facility] Hematocrit (Bld) [Volume fraction] 39 % Normal 38-51 [facility] Comment on above: Performed By: #### 3 0738 ####[place] [address] Hemoglobin (Bld) [Mass/Vol] 13.3 g/dL Normal 12.0-17.0 [facility] Comment on above: Performed By: #### 3 0738 ####[facility] [place] [address], [facility] IONIZED CALCIUM 1.17 mmol/L Normal 1.12-1.32 [facility] Comment on above: Performed By: #### 3 0738 ####[facility] [place] [address], [facility] Oxygen (Bld) [Partial pressure] 96.0 mm[Hg] Normal 80.0-105.0 [facility] Comment on above: Performed By: #### 3 0738 ####[facility] [place] [address], [place] PCO2 41.2 mmHg Normal 35.0-45.0 [facility] Comment on above: Performed By: #### 3 0738 ####[facility] [place] [address], [place] pH (Bld) 7.38 [pH] Normal 7.35-7.45 [facility] Comment on above: Performed By: #### 3 0738 ####[facility] [place] [address], [place] Potassium [Moles/Vol] 4.3 mmol/L Normal 3.5-4.9 [facility] Comment on above: Performed By: #### 3 0738 ####[facility] [place] [address], [place] Sodium [Moles/Vol] 139 mmol/L Normal 138-146 [facility] Comment on above: Performed By: #### 3 0738 ####[facility] [place] [address], [facility] PHOSPHORUS BLOODon Phosphate [Mass/Vol] 4.0 mg/dL Normal 2.5-5.0 [facility] Comment on above: Order Comment: No: D o not add to previous draw Performed By: #### 1 0070, 91005, 43042 ####[facility] [place] [address], [place] Phosphate [Mass/Vol] 3.8 mg/dL Normal 2.5-5.0 [facility] Comment on above: Order Comment: No: D o not add to previous draw Performed By: #### 0 0071, 05863, 35769 ####[facility] [place] [address], [place] POC GLUCOSE LABon 04-08-2021 Glucose [Mass/Vol] 252 mg/dL High 70-100 [facility] Comment on above: Performed By: #### 8 5499 ####[facility] [place] [address], [place] Glucose [Mass/Vol] 240 mg/dL High 70-100 [facility] Comment on above: Performed By: #### 8 5499 ####[facility] [place] [address], [place] Glucose [Mass/Vol] 126 mg/dL High 70-100 [facility] Comment on above: Performed By: #### 8 5499 ####[facility] [place] [address], [place] Glucose [Mass/Vol] 178 mg/dL High 70-100 [facility] Comment on above: Performed By: #### 8 5499 ####[facility] [place] [address], [place] Glucose [Mass/Vol] 195 mg/dL High 70-100 [facility] Comment on above: Performed By: #### 8 5499 ####[facility] [place] [address], [place] Glucose [Mass/Vol] 113 mg/dL High 70-100 [facility] Comment on above: Performed By: #### 8 5499 ####[facility] [place] [address], [place] Glucose [Mass/Vol] 118 mg/dL High 70-100 [facility] Comment on above: Performed By: #### 8 5499 ####[facility] [place] [address], [place] PORTABLE CHEST 1 VIEWon 08 PORTABLE CHEST 1 VIEW Normal [facility] Comment on above: Order Comment: Check Chest Tube Position, ON ARRIVAL TO CVU PROTHROMBIN TIMEon 08-16-202 1 INR Coag (PPP) [Relative time] 1.20 {INR} High 0.91-1.16 [facility] Comment on above: Order Comment: No: D o not add to previous draw Result Comment: [facility] P RECOMMENDED INR FOR WARFARIN THERAPY CONDITION INRPROPHYLAXIS OF VENOUS THROMBOSIS 2-3(HIGH-RISK SURGERY)TREATMENT OF VENOUS THROMBOSIS 2-3TREATMENT OF PULMONARY EMBOLISM 2-3PREVENTION OF SYSTEMIC EMBOLISM: 2-3 ACUTE MYOCARDIAL INFARCTION TISSUE HEART VALVES VALVULAR HEART DISEASE ATRIAL FIBRILLATION RECURRENT SYSTEMIC EMBOLISMMECHANICAL HEART VALVE 2.5-3.5 FROM: ORAL ANTICOAGULANTS. MECHANISM OF ACTION, CLINICALEFFECTIVENESS, AND OPTIMAL THERAPEUTIC RANGE. [id number];108:231S-246S. Performed By: #### 5 6101, 49503 ####[facility] [facility] [place] [address], [facility] PT Coag (PPP) [Time] 15.2 s High 12.3-14.8 [facility] Comment on above: Order Comment: No: D o not add to previous draw Result Comment: ALL RESULTS MUST BE INTERPRETED WITH RESPECT TO BLOOD DRAWING ARTIFACTOR DILUTION ERROR OF ANTICOAGULANT AT THE TIME OF SAMPLING. Performed By: #### 5 6101, 16036 ####[facility] [facility] [place] [address], [facility] INR Coag (PPP) [Relative time] 1.23 {INR} High 0.91-1.16 [facility] Comment on above: Result Comment: [facility] P RECOMMENDED INR FOR WARFARIN THERAPY CONDITION INRPROPHYLAXIS OF VENOUS THROMBOSIS 2-3(HIGH-RISK SURGERY)TREATMENT OF VENOUS THROMBOSIS 2-3TREATMENT OF PULMONARY EMBOLISM 2-3PREVENTION OF SYSTEMIC EMBOLISM: 2-3 ACUTE MYOCARDIAL INFARCTION TISSUE HEART VALVES VALVULAR HEART DISEASE ATRIAL FIBRILLATION RECURRENT SYSTEMIC EMBOLISMMECHANICAL HEART VALVE 2.5-3.5 FROM: ORAL ANTICOAGULANTS. MECHANISM OF ACTION, CLINICALEFFECTIVENESS, AND OPTIMAL THERAPEUTIC RANGE. [id number];108:231S-246S. Performed By: #### 5 7307, 93094, 93750 ####[facility] PT Coag (PPP) [Time] 15.5 s High 12.3-14.8 [facility] Comment on above: Result Comment: ALL RESULTS MUST BE INTERPRETED WITH RESPECT TO BLOOD DRAWING ARTIFACTOR DILUTION ERROR OF ANTICOAGULANT AT THE TIME OF SAMPLING. Performed By: #### 5 7307, 20889, 09494 ####[facility] [facility].[address] INR Coag (PPP) [Relative time] 1.05 {INR} Normal 0.91-1.16 [facility] Comment on above: Order Comment: No: [...] OF ACTION, CLINICALEFFECTIVENESS, AND OPTIMAL THERAPEUTIC RANGE. [id number];108:231S-246S. Performed By: #### 5 6101 ####[facility] PT Coag (PPP) [Time] 13.7 s Normal 12.3-14.8 [facility] Comment on above: Order Comment: No: D o not add to previous draw Result Comment: ALL RESULTS MUST BE INTERPRETED WITH RESPECT TO BLOOD DRAWING ARTIFACTOR DILUTION ERROR OF ANTICOAGULANT AT THE TIME OF SAMPLING. Performed By: #### 5 6101 ####[facility] TROPONIN-Ion 04-08-2021 Troponin I.cardiac [Mass/Vol] 0.34 ng/mL Critically high 0.00-0.04 [facility] Comment on above: Order Comment: [...] #### 3 5200 ####[facility] [facility] [place] [address], [facility] POC GLUCOSE LABon 04-07-2021 Glucose [Mass/Vol] 121 mg/dL High 70-100 [facility] Comment on above: Performed By: #### 8 5499 ####[facility] [facility] [place] [address], [facility] Glucose [Mass/Vol] 165 mg/dL High 70-100 [facility] Comment on above: Performed By: #### 8 5499 ####[facility] [facility] [place] [address], [facility] Glucose [Mass/Vol] 109 mg/dL High 70-100 [facility] Comment on above: Performed By: #### 8 5499 ####[facility] POC SARS COV2 ANTIGEN NEGATI VEon 04-07-2021 POC SARS COV2 ANTIGEN NEG Negative Normal NEGATIVE [facility] Comment on above: Result Comment: Nega tive [...] forthe qualitative detection of nucleocapsid protein antigen [id number] in direct nasal swabs from individuals within [...] #### 3 1977 ####[facility] Pulmonary Functionon 021 Pulmonary Function Normal [facility] RBC'S 4 UNITSon 04-07-2021 CROSSMATCH INTERP 1 COMP Normal [facility] Comment on above: Performed By: #### 8 6004 ####[facility] [place] [address], [facility] CROSSMATCH INTERP 2 COMP Normal [facility] Comment on above: Performed By: #### 8 6004 ####[facility] [place] [address], [facility] CROSSMATCH INTERP 3 COMP Normal [facility] Comment on above: Performed By: #### 8 6004 ####[facility] [place] [address], [facility] CROSSMATCH INTERP 4 COMP Normal [facility] Comment on above: Performed By: #### 8 6004 ####[facility] [place] [address], [facility] PRODUCT CODE 1 E0336 Normal [facility] Comment on above: Performed By: #### 8 6004 ####[facility] [place] [address], [facility] PRODUCT CODE 2 E0336 Normal [facility] Comment on above: Performed By: #### 8 6004 ####[facility] [place] [address], [place] PRODUCT CODE 3 E0336 Normal [facility] Comment on above: Performed By: #### 8 6004 ####[facility] [place] [address], [place] PRODUCT CODE 4 E0336 Normal [facility] Comment on above: Performed By: #### 8 6004 ####[facility] [place] [address], [facility] PRODUCT STATUS 1 RE Normal [facility] Comment on above: Result Comment: Resu lt changed by IF on 04/08/2021 12:37. The previous value was XM.Result changed by IF on 04/08/2021 16:53. The previous value was IS.Result changed by IF on 04/11/2021 11:14. The previous value was XM. Performed By: #### 8 6004 ####[facility] [facility].[address] PRODUCT STATUS 2 RE Normal [facility] Comment on above: Result Comment: Resu lt changed by IF on 04/08/2021 12:37. The previous value was XM.Result changed by IF on 04/08/2021 16:53. The previous value was IS.Result changed by IF on 04/11/2021 11:14. The previous value was XM. Performed By: #### 8 6004 ####[facility] [facility] [place] [address], [facility] PRODUCT STATUS 3 RE Normal [facility] Comment on above: Result Comment: Resu lt changed by IF on 04/08/2021 12:37. The previous value was XM.Result changed by IF on 04/08/2021 16:53. The previous value was IS.Result changed by IF on 04/11/2021 11:14. The previous value was XM. Performed By: #### 8 6004 ####[facility] [facility] [place] [place] [address], [facility] PRODUCT STATUS 4 RE Normal [facility] Comment on above: Result Comment: Resu lt changed by IF on 04/08/2021 12:37. The previous value was XM.Result changed by IF on 04/08/2021 16:53. The previous value was IS.Result changed by IF on 04/11/2021 11:14. The previous value was XM. Performed By: #### 8 6004 ####[facility] [facility] [place] [address], [facility] UNIT ABO 1 O Normal [facility] Comment on above: Performed By: #### 8 6004 ####[facility] [place] [address], [facility] UNIT ABO 2 O Normal [facility] Comment on above: Performed By: #### 8 6004 ####[facility] [place] [address], [place] UNIT ABO 3 O Normal [facility] Comment on above: Performed By: #### 8 6004 ####[facility] [place] [address], [facility] UNIT ABO 4 O Normal [facility] Comment on above: Performed By: #### 8 6004 ####[facility] [place] [address], [facility] UNIT ID 1 [id number] Normal [facility] Comment on above: Performed By: #### 8 6004 ####[facility] [place] [address], [facility] UNIT ID 2 [id number] Normal [facility] Comment on above: Performed By: #### 8 6004 ####[facility] [place] [address], [facility] UNIT ID 3 [id number] Normal [facility] Comment on above: Performed By: #### 8 6004 ####[facility] [place] [address], [facility] UNIT ID 4 [id number] Normal [facility] Comment on above: Performed By: #### 8 6004 ####[facility] [place] [address], [place] UNIT RH 1 Positive Normal [facility] Comment on above: Performed By: #### 8 6004 ####[facility] [place] [address], [facility] UNIT RH 2 Positive Normal [facility] Comment on above: Performed By: #### 8 6004 ####[facility] [place] [address], [facility] UNIT RH 3 Positive Normal [facility] Comment on above: Performed By: #### 8 6004 ####[facility] [place] [address], [facility] UNIT RH 4 Positive Normal [facility] Comment on above: Performed By: #### 8 6004 ####[facility] [place] [address], [facility] TYPE AND SCREENon 04-07-2021 ABO INTERPRETATION O Normal [facility] Comment on above: Performed By: #### 6 2586 ####[facility] [place] [address], [facility] RH INTERPRETATION Positive Normal [facility] Comment on above: Performed By: #### 6 2586 ####[facility] *MRSA/MSSA DNA NASALon 04-06 *MRSA/MSSA DNA NASAL Clinical Report: (D ) Specimen: NASAL SWAB Collected: 04/06/2021 12:43 Status: Final Last Updated: 04/06/2021 16:01 MSSA DNA (Final) Negative MRSA DNA (Final) Negative Normal [facility] Comment on above: Performed By: #### 3 1595 ####[facility] [place] [address], [facility] BASIC METABOLIC PANELon 03-24 Calcium [Mass/Vol] 8.9 mg/dL Normal 8.6-10.3 [facility] Comment on above: Order Comment: No: D o not add to previous draw Performed By: #### 1 0070, 61912 ####[facility] [place] [address], [facility] Chloride [Moles/Vol] 103 mmol/L Normal 98-107 [facility] Comment on above: Order Comment: No: D o not add to previous draw Performed By: #### 1 69, 29300 ####[facility] [place] [address], [facility] CO2 [Moles/Vol] 26 mmol/L Normal 21-31 [facility] Comment on above: Order Comment: No: D o not add to previous draw Performed By: #### 1 69, 75714 ####[facility] [place] [address], [facility] Creatinine [Mass/Vol] 0.78 mg/dL Normal 0.70-1.30 [facility] Comment on above: Order Comment: No: D o not add to previous draw Performed By: #### 1 69, 20480 ####[facility] [place] [address], [facility] GFR/1.73 sq M.predicted among blacks MDRD (S/P/Bld) [Vol rate/Area] mL/min/{1.73_m2} Normal >60 [facility] Comment on above: Order Comment: No: D o not add to previous draw Result Comment: Calc ulation may not be valid for patients over 70 years Performed By: #### 1 69, 28784 ####[facility] [id number], [facility] GFR/1.73 sq M.predicted among non-blacks MDRD (S/P/Bld) [Vol rate/Area] mL/min/{1.73_m2} Normal >60 [facility] Comment on above: Order Comment: No: D o not add to previous draw Result Comment: Calc ulation may not be valid for patients over 70 years Performed By: #### 1 69, 08527 ####[facility] [place] [address], [place] Glucose [Mass/Vol] 101 mg/dL High 70-100 [facility] Comment on above: Order Comment: No: D o not add to previous draw Performed By: #### 1 69, 12523 ####[facility] [place] [address], [facility] Potassium [Moles/Vol] 4.1 mmol/L Normal 3.5-5.1 [facility] Comment on above: Order Comment: No: D o not add to previous draw Performed By: #### 1 69, 85707 ####[facility] [place] [address], [facility] Sodium [Moles/Vol] 134 mmol/L Low 136-145 [facility] Comment on above: Order Comment: No: D o not add to previous draw Performed By: #### 1 69, 43693 ####[facility] [facility] [address], [facility] Urea nitrogen [Mass/Vol] 20 mg/dL Normal 7-25 [facility] Comment on above: Order Comment: No: D o not add to previous draw Performed By: #### 1 69, 59748 ####[facility] [facility] [place] [address], [facility] CBC COMPLETE BLOOD COUNTon 0 - Erythrocyte distribution width (RBC) [Ratio] 15.3 % High 11.5-15.0 [facility] Comment on above: Order Comment: No: D o not add to previous draw Performed By: #### 5 0608 ####[facility] [place] [address], [facility] Hematocrit (Bld) [Volume fraction] 43.0 % Normal 39.0-50.0 [facility] Comment on above: Order Comment: No: D o not add to previous draw Performed By: #### 5 [id number] ####[facility] [place] [address], [facility] Hemoglobin (Bld) [Mass/Vol] 14.3 g/dL Normal 13.0-17.0 [facility] Comment on above: Order Comment: No: D o not add to previous draw Performed By: #### 5 [id number] ####[facility] [facility] MCH (RBC) [Entitic mass] 30.6 pg Normal 27.0-33.0 [facility] Comment on above: Order Comment: No: D o not add to previous draw Performed By: #### 5 [id number] ####[facility]3000 [facility].[address] MCHC (RBC) [Mass/Vol] 33.3 g/dL Normal 32.0-35.0 [facility] Comment on above: Order Comment: No: D o not add to previous draw Performed By: #### 5 [id number] ####[facility]3000 [facility].[address] MCV (RBC) [Entitic vol] 92.1 fL Normal 82.0-98.0 [facility] Comment on above: Order Comment: No: D o not add to previous draw Performed By: #### 5 [id number] ####[facility]3000 [facility].[address] Nucleated RBC/100 WBC (Bld) [Ratio] 0 % Normal 0-0 [facility] Comment on above: Order Comment: No: D o not add to previous draw Performed By: #### 5 [id number] ####[facility]3000 [facility].[address] PLAT CNT 238 10*3/uL Normal 150-400 [facility] Comment on above: Order Comment: No: D o not add to previous draw Performed By: #### 5 [id number] ####[facility] [place] [address].[address] RBC (Bld) [#/Vol] 4.67 10*6/uL Normal 4.20-5.70 [facility] Comment on above: Order Comment: No: D o not add to previous draw Performed By: #### 5 [id number] ####[facility] [place] [address], [place] WBC (Bld) [#/Vol] 6.86 10*3/uL Normal 4.00-10.60 [facility] Comment on above: Order Comment: No: D o not add to previous draw Performed By: #### 5 0608 ####[facility] [place] [address], [place] MAGNESIUM BLOODon 04-06-2021 Magnesium [Mass/Vol] 2.0 mg/dL Normal 1.9-2.7 [facility] Comment on above: Order Comment: No: D o not add to previous draw Performed By: #### 1 0070, [id number] ####[facility] [place] [address], [place] POC GLUCOSE LABon 04-06-2021 Glucose [Mass/Vol] 118 mg/dL High 70-100 [facility] Comment on above: Performed By: #### 8 [id number] ####[facility] [place] [address], [place] Glucose [Mass/Vol] 108 mg/dL High 70-100 [facility] Comment on above: Performed By: #### 8 [id number] ####[facility] [place] [address], [place] Glucose [Mass/Vol] 114 mg/dL High 70-100 [facility] Comment on above: Performed By: #### 8 [id number] ####[facility] [place] [address], [place] Glucose [Mass/Vol] 126 mg/dL High 70-100 [facility] Comment on above: Performed By: #### 8 [id number] ####[facility] [facility] [place] [address], [facility] URINALYSIS REFLEXon 04-06-20 21 Appearance (U) CLEAR Normal CLEAR [facility] Comment on above: Order Comment: No: D o not add to previous drawCriteria for reflexing a culture was not met. Please call the lab [id number] within 24 hours of collection time if culture is needed Performed By: #### 3 0965 ####[facility] [facility] [place] [address], [facility] Bilirubin Ql (U) Negative Normal NEGATIVE [facility] Comment on above: Order Comment: No: D o not add to previous drawCriteria for reflexing a culture was not met. Please call the lab [id number] within 24 hours of collection time if culture is needed Performed By: #### 3 0965 ####[facility] [facility] [place] [address], [facility] Color (U) YELLOW Normal YELLOW [facility] Comment on above: Order Comment: No: D o not add to previous drawCriteria for reflexing a culture was not met. Please call the lab [phone] within 24 hours of collection time if culture is needed Performed By: #### 3 0965 ####[facility] [facility] [place] [address], [facility] Glucose Ql (U) Negative Normal NEGATIVE [facility] Comment on above: Order Comment: No: D o not add to previous drawCriteria for reflexing a culture was not met. Please call the lab [phone] within 24 hours of collection time if culture is needed Performed By: #### 3 0965 ####[facility] [facility] [place] [address], [facility] Hemoglobin Ql (U) Negative Normal NEGATIVE [facility] Comment on above: Order Comment: No: D o not add to previous drawCriteria for reflexing a culture was not met. Please call the lab [id number] within 24 hours of collection time if culture is needed Performed By: #### 3 0965 ####[facility] [facility] [address], [facility] KETONE Negative Normal NEGATIVE [facility] Comment on above: Order Comment: No: D o not add to previous drawCriteria for reflexing a culture was not met. Please call the lab [id number] within 24 hours of collection time if culture is needed Performed By: #### 3 0965 ####[facility] [facility] [place] [address], [facility] LEUK JESS Negative Normal NEGATIVE [facility] Comment on above: Order Comment: No: D o not add to previous drawCriteria for reflexing a culture was not met. Please call the lab [phone] within 24 hours of collection time if culture is needed Performed By: #### 3 0965 ####[facility] [facility] [place] [address], [facility] MICRO NOT DONE Normal [facility] Comment on above: Order Comment: No: D o not add to previous drawCriteria for reflexing a culture was not met. Please call the lab [phone] within 24 hours of collection time if culture is needed Result Comment: Micr oscopics not performed on urines withnegative chemical reactions unless requested in original order Performed By: #### 3 0965 ####[facility] [facility] [place] [address], [facility] Nitrite Ql (U) Negative Normal NEGATIVE [facility] Comment on above: Order Comment: No: D o not add to previous drawCriteria for reflexing a culture was not met. Please call the lab [id number] within 24 hours of collection time if culture is needed Performed By: #### 3 0965 ####[address] pH (U) 6.0 [pH] Normal 5.0-8.0 [facility] Comment on above: Order Comment: No: D o not add to previous drawCriteria for reflexing a culture was not met. Please call the lab [phone] within 24 hours of collection time if culture is needed Performed By: #### 3 0965 ####[facility] Protein Ql (U) Negative Normal NEGATIVE [facility] Comment on above: Order Comment: No: D o not add to previous drawCriteria for reflexing a culture was not met. Please call the lab [phone] within 24 hours of collection time if culture is needed Performed By: #### 3 0965 ####[facility] SPEC GRAV 1.019 Normal 1.015-1.020 [facility] Comment on above: Order Comment: No: D o not add to previous drawCriteria for reflexing a culture was not met. Please call the lab [id number] within 24 hours of collection time if culture is needed Performed By: #### 3 0965 ####[facility] Vital Signs Date Time Vital Sign Value Performing Clinician Faci lity 03-21-2025 15:10-0400 Body mass index (BMI) [Ratio] 46.28 kg/m2 Teressa Sierra [employer] Work Phone: [facility] 03-21-2025 15:10-0400 Body temperature 98.1 [degF] Teressalloyd Sierra [employer] Work Phone: [facility] 03-21-2025 15:10-0400 Body weight 148.42 kg Teressa Mariela [employer] Work Phone: [facility] 03-21-2025 15:10-0400 Diastolic blood pressure 68 mm[Hg] Teressa Mariela [employer] Work Phone: [facility] 03-21-2025 15:10-0400 Heart rate 59 /min Teressa Mariela [employer] Work Phone: [facility] 03-21-2025 15:10-0400 Respiratory rate 24 /min Teressa Aichholz [employer] Work Phone: [facility] 03-21-2025 15:10-0400 SaO2% (BldA) [Mass fraction] 94 % Teressa Adolphholz [employer] Work Phone: [facility] 03-21-2025 15:10-0400 Systolic blood pressure 110 mm[Hg] Teressa Samanthahholz [employer] Work Phone: [facility] 12-19-2024 16:59-0400 Body mass index (BMI) [Ratio] 45.75 kg/m2 Teressa Samanthahholz [employer] Work Phone: [facility] 12-19-2024 16:59-0400 Body temperature 97.81 [degF] Teressa Adolphholz [employer] Work Phone: [facility] 12-19-2024 16:59-0400 Body weight 146.69 kg Teressa Adolphholz [employer] Work Phone: [facility] 12-19-2024 16:59-0400 Diastolic blood pressure 66 mm[Hg] Teressa Adolphholz [employer] Work Phone: [facility] 12-19-2024 16:59-0400 Heart rate 59 /min Teressa Samanthahholz [employer] Work Phone: [facility] 12-19-2024 16:59-0400 Respiratory rate 26 /min Teressa Samanthahholz [employer] Work Phone: [facility] 12-19-2024 16:59-0400 SaO2% (BldA) [Mass fraction] 94 % Teressa Adolphholz [employer] Work Phone: [facility] 12-19-2024 16:59-0400 Systolic blood pressure 112 mm[Hg] Teressa Aichholz [employer] Work Phone: [facility] 09-27-2024 14:06-0500 Body height 179.1 cm Teressa Aichholz [employer] Work Phone: [facility] 09-27-2024 14:06-0500 Body mass index (BMI) [Ratio] 45.83 kg/m2 Teressa Mariez [employer] Work Phone: [facility] 09-27-2024 14:06-0500 Body temperature 97.81 [degF] Teressa Mariez [employer] Work Phone: [facility] 09-27-2024 14:06-0500 Body weight 146.97 kg Teressalloyd Mariez [employer] Work Phone: [facility] 09-27-2024 14:06-0500 Diastolic blood pressure 74 mm[Hg] Teressa Adolphholz [employer] Work Phone: [facility] 09-27-2024 14:06-0500 Heart rate 83 /min Teressalloyd Mariez [employer] Work Phone: [facility] 09-27-2024 14:06-0500 Respiratory rate 24 /min Teressalloyd Mariez [employer] Work Phone: [facility] 09-27-2024 14:06-0500 SaO2% (BldA) [Mass fraction] 92 % Teressa Adolphholz [employer] Work Phone: [facility] 09-27-2024 14:06-0500 Systolic blood pressure 132 mm[Hg] Teressa Farfanholz [employer] Work Phone: [facility] 06-01-2024 15:17-0400 Body height 179.1 cm Teressa Mariez [employer] Work Phone: [facility] 06-01-2024 15:17-0400 Body mass index (BMI) [Ratio] 45.52 kg/m2 Teressa Adolphholz [employer] Work Phone: [facility] 06-01-2024 15:17-0400 Body temperature 98.49 [degF] Teressa Farfanholz [employer] Work Phone: [facility] 06-01-2024 15:17-0400 Body weight 145.97 kg Teressalloyd Farfanholz [employer] Work Phone: [facility] 06-01-2024 15:17-0400 Diastolic blood pressure 68 mm[Hg] Teressalloyd Farfancristinz [employer]ER Work Phone: [facility] 06-01-2024 15:17-0400 Heart rate 62 /min Teressa Adolphholz [employer]ER Work Phone: [facility] 06-01-2024 15:17-0400 Respiratory rate 18 /min Teressa Aichholz [employer] Work Phone: [facility] 06-01-2024 15:17-0400 SaO2% (BldA) [Mass fraction] 95 % Teressa Aicjoeholz [employer]ER Work Phone: [facility] 06-01-2024 15:17-0400 Systolic blood pressure 122 mm[Hg] Teressa Aichholz [employer] Work Phone: [facility] Healthcare Encounters Encounter Date Encounter Type Care Provider Facility Start: 03-21-2025 End: 03-21-2025 Office outpatient visit 25 minutes Teressa Samanthajoeangel [employer]ER Work Phone: [facility] Comment on above: Essential hypertensi on (Primary Dx); Obstructive sleep apnea syndrome; Chronic obstructive pulmonary disease, unspecified COPD type ([facility]); Chronic diastolic (congestive) heart failure ([facility]); 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 ; Bilateral lower extremity edema; Type 2 diabetes mellitus with stage 3 chronic kidney disease, without long-term current use of insulin, unspecified whether stage 3a or 3b CKD ([facility]); Morbid (severe) obesity due to excess calories ([facility]); MGUS (monoclonal gammopathy of unknown significance); Atherosclerosis of pokagon coronary artery of pokagon heart without angina pectoris ; Mixed hyperlipidemia ; 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 Start: 03-21-2025 End: 03-21-2025 ambulatory TERESSA AICHHOLZ Not Available Start: 03-21-2025 End: 03-21-2025 Bamboo flowsheet Teressa Aichholz [employer] Work Phone: [facility] Start: 03-21-2025 End: 03-21-2025 Bamboo flowsheet Teressa Aichholz [employer]ER Work Phone: [facility] Start: 02-21-2025 End: 02-21-2025 Clinisync Result Encounter Generic External Data Provider [facility] External Department Unsolicited Start: 02-21-2025 End: 02-21-2025 Clinisync Result Encounter Generic External Data Provider [facility] External Department Unsolicited Start: 02-08-2025 End: 02-08-2025 Bamboo flowscarole Malik MD Work Phone: [facility] Start: 02-08-2025 End: 02-08-2025 Bamboo geraldine Malik MD Work Phone: [facility] Start: 02-08-2025 End: 02-08-2025 Patient encounter procedure Adarsh Malik MD Work Phone: [facility] Comment on above: Neoplasm of unspecif ied behavior of bone, soft tissue, and skin (Primary Dx) Start: 02-08-2025 End: 02-08-2025 ambulatory ADARSH MALIK Not Available Start: 01-23-2025 End: 01-23-2025 ambulatory [facility] Start: 12-30-2024 End: 12-30-2024 Clinisync Result Encounter Generic External Data Provider [facility] External Department Unsolicited Start: 12-30-2024 End: 12-30-2024 Clinisync Result Encounter Generic External Data Provider [facility] External Department Unsolicited Start: 12-28-2024 End: 12-28-2024 Bamboo flowsheet Татьяна Dangelo PA Work Phone: [facility] Start: 12-28-2024 End: 12-28-2024 Bamboo flowsheet Татьяна Dangelo PA Work Phone: [facility] Start: 12-28-2024 End: 12-28-2024 Office outpatient visit 10 minutes Татьяна Dangelo PA Work Phone: [facility] Comment on above: Epidermal inclusion cyst (Primary Dx); Neoplasm of unspecified behavior of bone, soft tissue, and skin Start: 12-28-2024 End: 12-28-2024 ambulatory ТАТЬЯНА DANGELO Not Available Start: 12-19-2024 End: 12-19-2024 Patient encounter procedure Teressa Sierra NP Work Phone: [facility] Comment on above: Encounter for subseq uent annual wellness visit (AWV) in Medicare patient (Primary Dx); Chronic obstructive pulmonary disease, unspecified COPD type (CMS/HCC); 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 (CMS/HCC); Essential hypertension; Type 2 diabetes mellitus with stage 3 chronic kidney disease, without long-term current use of insulin, unspecified whether stage 3a or 3b CKD (HCC) (CMS/HCC); Neoplasm of uncertain behavior; Body mass index (BMI) 45.0-49.9, adult (CMS/HCC); Morbid (severe) obesity due to excess calories (CMS/HCC) Start: 12-19-2024 End: 12-19-2024 Refill Teressa Sierra NP Work Phone: [facility] Comment on above: Bilateral primary os teoarthritis of knee; 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 (CMS/HCC) Start: 10-11-2024 End: 10-11-2024 Clinisync Result Encounter Generic External Data Provider [facility] External Department Unsolicited Start: 10-11-2024 End: 10-11-2024 Clinisync Result Encounter Generic External Data Provider [facility] External Department Unsolicited Start: 10-04-2024 End: 10-04-2024 Refill Teressa Sierra NP Work Phone: [facility] Comment on above: Type 2 diabetes jennie itus without complications (CMS/HCC) Start: 10-03-2024 End: 10-03-2024 ambulatory [facility] Start: 09-27-2024 End: 09-27-2024 Bamboo flowsheet Teressa Sierra NP Work Phone: [facility] Start: 09-27-2024 End: 09-27-2024 Bamboo flowsheet Teressa Sierra [employer] Work Phone: [facility] Start: 09-27-2024 End: 09-27-2024 Office outpatient visit 25 minutes Teressa Sierra [employer] Work Phone: [facility] Comment on above: Obstructive sleep ap rohit syndrome (Primary Dx); Type 2 diabetes mellitus with diabetic chronic kidney disease ([facility]); 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 (CODE) ([facility]); Morbid (severe) obesity due to excess calories ([facility]); Body mass index (BMI) 45.0-49.9, adult ([facility]); Type 2 diabetes mellitus with diabetic peripheral angiopathy without gangrene ([facility]); Other ventricular tachycardia ([facility]); Chronic obstructive pulmonary disease, unspecified ([facility]); Chronic diastolic (congestive) heart failure ([facility]); Atherosclerosis of pokagon coronary artery of pokagon heart without angina pectoris ([facility]); Essential hypertension; Chronic kidney disease, stage 3a (HCC) ([facility]); Bilateral lower extremity edema; Stasis edema with ulcer of both lower extremities ([facility]); Mixed hyperlipidemia ([facility]); Stasis dermatitis 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 hypertension ([facility]); 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 ([facility]) Start: 09-27-2024 End: 09-27-2024 ambulatory TEERSSA MARIELA Not Available Start: 09-10-2024 End: 09-11-2024 Refill Teressa Sierra [employer] Work Phone: [facility] Comment on above: Localized edema Start: 09-08-2024 End: 09-08-2024 Refill Teressa Sierra [employer] Work Phone: [facility] FM Comment on above: Type 2 diabetes jennie itus without complication, without long- term current use of insulin ([facility]) Start: 08-04-2024 End: 08-04-2024 Clinisync Result Encounter Teressa Sierra NP Work Phone: [facility] Unsolicited Start: 08-04-2024 End: 08-04-2024 Clinisync Result Encounter Teressa Samanthamp [employer] Work Phone: [facility] Unsolicited Start: 07-13-2024 End: 07-13-2024 Refill Teressa Aichholz [employer] Work Phone: [facility] Comment on above: Anemia, unspecified Start: 06-20-2024 End: 06-20-2024 Orders Only Teressa Frankz [employer] Work Phone: [facility] Comment on above: Chronic kidney disea se, stage 3a (HCC) (CMS/HCC) (Primary Dx) Start: 06-20-2024 End: 06-21-2024 Refill Teressa Aichholz [employer] Work Phone: [facility] Comment on above: Type 2 diabetes jennie itus without complications (CMS/HCC) Start: 06-17-2024 End: 06-17-2024 Refill Teressa Aichholz [employer] Work Phone: [facility] Comment on above: Bilateral primary os teoarthritis of knee; 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 (CMS/HCC) Start: 06-16-2024 End: 06-16-2024 Clinisync Result Encounter Teressa Frankz [employer] Work Phone: [facility] External Department Unsolicited Start: 06-16-2024 End: 06-16-2024 Clinisync Result Encounter Teressa Aichholz [employer] Work Phone: [facility] External Department Unsolicited Start: 06-13-2024 End: 06-13-2024 Refill Teressa Aichholz [employer] Work Phone: [facility] Comment on above: Coronary artery dise ase involving pokagon coronary artery of pokagon heart without angina pectoris (CMS/HCC) (Primary Dx); Atherosclerosis of pokagon coronary artery of pokagon heart without angina pectoris (CMS/HCC); Mixed hyperlipidemia (CMS/HCC) Start: 06-01-2024 End: 06-01-2024 Office outpatient visit 25 minutes Teressa Sierra [employer] Work Phone: [facility] Comment on above: Type 2 diabetes jennie itus without complication, without long- term current use of insulin ([facility]) (Primary Dx); Chronic kidney disease, stage 3a (HCC) ([facility]); Mixed hyperlipidemia ([facility]); 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 ([facility]); Essential hypertension; Prostate cancer screening; Obstructive sleep apnea syndrome; Chronic obstructive pulmonary disease, unspecified COPD type ([facility]); Venous stasis of both lower extremities; Morbid (severe) obesity due to excess calories ([facility]); Body mass index (BMI) 45.0-49.9, adult ([facility]) Start: 06-01-2024 End: 06-01-2024 ambulatory TERESSA SIERRA Not Available Start: 06-01-2024 End: 06-01-2024 Bamboo flowsheet Teressa Sierra [employer] Work Phone: [facility] Start: 06-01-2024 End: 06-01-2024 Bamboo flowsheet Teressa Sierra [employer]ER Work Phone: [facility] Start: 03-09-2024 End: 03-09-2024 ambulatory [facility] Start: 12-14-2023 Patient encounter procedure Teressa Sierra [employer] Work Phone: [facility] Start: 05-18-2023 End: 05-18-2023 ambulatory Mal Barnes Facility:[facility] Start: 09-03-2022 End: 09-03-2022 ambulatory Moshe Garcia Other [employer] Other Start: 09-03-2022 Office outpatient ne w 45 minutes Moshe Garcia [facility] Start: 08-18-2022 End: 08-20-2022 Evaluation and management of inpatient DR MAL BARNES Facility: Start: 08-05-2022 End: 08-06-[address] CATINA HEARN Facility:[facility] Start: 08-04-2022 End: 08-05-[address] CATINA HEARN Facility:[facility] Start: 07-14-2022 End: 07-15-[address] CATINA HEARN Facility:[facility] Start: 05-08-2022 End: 05-09-[address] CATINA HEARN Facility:[facility] Start: 05-05-2022 End: 05-06-[address] CATINA HEARN Facility:[facility] Start: 04-14-2022 End: 04-15-2022 ambulatory ARIELLA JULIÁN Facility:[facility] Start: 12-15-2021 ambulatory ARIELLA GALLEGO Facility :[facility] Start: 05-15-2021 End: 06-02-2021 Evaluation and management of inpatient [facility] Facility:[facility] Procedures Date Procedure Procedure Detail Performing Clinician Start: 03-21-2025 Hemoglobin glycosyla buck a1c Teressa Aichholz ORE ROASTER Work Phone: Start: 02-21-2025 CA ECHO DOPPLER COMPLETE Generic External Data Provider Start: 02-21-2025 ALL BASIC METABOLIC PANEL Generic External Data Provider Start: 02-08-2025 SKIN EXCISION Adarsh clayton MD Work Phone: Start: 02-08-2025 SKIN REPAIR Adarsh seth MD Work Phone: Start: 12-30-2024 ALL BASIC METABOLIC PANEL Generic External Data Provider Start: 12-30-2024 ALL PRO BNP Generic Ex ternal Data Provider Start: 12-28-2024 SKIN / NAIL BIOPSY Efraín FISH Work Phone: Start: 12-19-2024 Hemoglobin glycosyla buck a1c Teressa Aichholz ORE ROASTER Work Phone: Start: 10-11-2024 ALL BASIC METABOLIC PANEL Generic External Data Provider Start: 08-04-2024 ALL CBC WITH AUTO DIFF Teressa Aichholz ORE ROASTER Work Phone: Start: 06-16-2024 ALL CBC WITH AUTO DIFF Teressa Aichholz ORE ROASTER Work Phone: Start: 07-03-2021 End: 09-27-2024 History of coronary artery bypass grafting History of coronary artery bypass surgery Teressa Sierra NP Work Phone: Start: 05-24-2021 Antibody screen MAL BARNES Comment on above: Performed By: #### [id number] ####[facility] [place] [address], [facility] Start: 05-23-2021 EXCISION OF STERNUM, [...] [id number] ####[facility] [place] [address], [facility] Start: 05-16-2021 EXCISION OF CHEST SK IN, EXTERNAL APPROACH AKANKSHA UP Start: 05-16-2021 RESPIRATORY VENTILAT ION, LESS THAN 24 CONSECUTIVE HOURS GUDELIA MASROOR Start: 05-15-2021 Antibody screen MAL BARNES Comment on above: Performed By: #### [id number] ####[facility] [id number] [place] [address], [facility] Start: 04-07-2021 Antibody screen MAL BARNES Comment on above: Performed By: #### [id number] ####[facility] [id number] [place] [address], [facility] Plan of Treatment Date Care Activity Detail Author Start: 12-25-2025 End: 12-25-2025 Patient encounter procedure 12/25/2025 4:30 PM EDT Office Visit [facility] [address] [place] [address] Teressa Sierra NP [address] [place] [address] [facility] Start: 12-19-2025 Medicare Annual Wellness (AWV) Medicare Annual Wellness (AWV) [facility] Start: 09-21-2025 Hemoglobin A1c measurement Diabetes: Hemoglobin A1C [facility] Start: 08-24-2025 Glaucoma screening Diabetes: Retinopathy Screening [facility] Start: 08-10-2025 End: 08-10-2025 [facility] Start: 06-22-2025 End: 06-22-2025 Patient encounter procedure 06/22/2025 2:00 PM EDT Office [facility] [address] [place] [phone] Teressa Sierra NP [address] [place] [phone] [facility] Start: 06-20-2025 Hemoglobin A1c measurement Diabetes: Hemoglobin A1C [facility] Start: 06-16-2025 Urine screening for protein Diabetes: Urine Protein Screening [facility] Start: 03-21-2025 End: 03-21-2025 Patient encounter procedure [facility] Comment on above: Obstructive sleep apnea syndrome (Primar y Dx); Chronic obstructive pulmonary disease, unspecified COPD type (HCC); Essential hypertension; Chronic diastolic (congestive) heart failure (HCC); 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 ; Bilateral lower extremity edema; Type 2 diabetes mellitus with stage 3 chronic kidney disease, without long-term current use of insulin, unspecified whether stage 3a or 3b CKD ([facility]); Morbid (severe) obesity due to excess calories ([facility]); MGUS (monoclonal gammopathy of unknown significance) Start: 02-08-2025 End: 02-08-2025 Patient encounter procedure 02/08/2025 1:00 PM EDT Office Visit [facility] [address] [place] [phone] Adarsh Malik MD [address] [place] [address] Arrived [facility] Comment on above: Arrived Start: 12-28-2024 End: 12-28-2024 Patient encounter procedure 12/28/2024 10:30 AM EDT Office Visit [facility] [address] [place] [address] Татьяна Dangelo PA [address] [place] [address] Neoplasm of uncertain behavior [facility] Comment on above: Neoplasm of uncertain behavior Start: 12-19-2024 End: 12-19-2024 Patient encounter procedure 12/19/2024 4:30 PM EDT Office Visit [facility] [address] [place] [phone] Teressa Sierra NP [address] [place] [phone] [facility] Start: 12-15-2024 Hemoglobin A1c measurement Diabetes: Hemoglobin A1C [facility] Start: 12-13-2024 Medicare Annual Wellness (AWV) Medicare Annual Wellness (AWV) [facility] Start: 09-27-2024 End: 09-27-2024 Patient encounter procedure 09/27/2024 2:00 PM EST Office Visit [facility] [address] [place] [address] Teressa Sierra NP [address] [place] [phone] Obstructive sleep apnea syndrome (Primary Dx); Type 2 diabetes mellitus with diabetic chronic kidney disease ([facility]); 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 (CODE) ([facility]); Morbid (severe) obesity due to excess calories ([facility]); Body mass index (BMI) 45.0-49.9, adult ([facility]); Type 2 diabetes mellitus with diabetic peripheral angiopathy without gangrene (CMS/HCC); Other ventricular tachycardia (CMS/HCC); Chronic obstructive pulmonary disease, unspecified (CMS/HCC); Chronic diastolic (congestive) heart failure (CMS/HCC); Atherosclerosis of pokagon coronary artery of pokagon heart without angina pectoris (CMS/HCC); Essential hypertension; Chronic kidney disease, stage 3a (HCC) (CMS/HCC); Bilateral lower extremity edema; Stasis edema with ulcer of both lower extremities (CMS/HCC); Mixed hyperlipidemia (CMS/HCC) [facility] Comment on above: Obstructive sleep apnea syndrome [...] diastolic (congestive) heart failure (CMS/HCC); Atherosclerosis of pokagon coronary artery of pokagon heart without angina pectoris (CMS/HCC); Essential hypertension; Chronic kidney disease, stage 3a (HCC) (CMS/HCC); Bilateral lower extremity edema; Stasis edema with ulcer of both lower extremities (CMS/HCC); Mixed hyperlipidemia (CMS/HCC) Start: 09-14-2024 End: 09-14-2024 Patient encounter procedure 09/14/2024 2:00 PM EST Office Visit [facility] [address] [place] [address] Teressa Sierra NP [address] [place] [address] [facility] Start: 09-09-2024 Pneumococcal Vaccine: 65+ Years (1 of 2 - PCV) Pneumococcal Vaccine: 65+ Years (1 of 2 - PCV) [facility] Comment on above: Postponed from 1950 (Patient Refus ed) Start: 09-05-2024 End: 09-05-2024 Patient encounter procedure 09/05/2024 2:00 PM EST Office Visit [facility] [address] [place] [phone] Teressa Sierra NP [address] [place] [phone] [facility] Start: 07-21-2024 End: 06-20-2025 CBC W Auto Differential panel - Blood CBC and differential Lab Routine Chronic kidney disease, stage 3a (HCC) (CMS/HCC) Expected: 07/21/2024 (Approximate), Expires: 06/20/2025 [facility] Work Phone: Comment on above: Expected: 07/21/2024 (Approximate), Expi res: 06/20/2025 Start: 07-21-2024 End: 06-20-2025 Comprehensive metabolic 2000 panel - Serum or Plasma Comprehensive metabolic panel Lab Routine Chronic kidney disease, stage 3a (HCC) (CMS/HCC) Expected: 07/21/2024 (Approximate), Expires: 06/20/2025 [facility] Comment on above: Expected: 07/21/2024 (Approximate), Expi res: 06/20/2025 Start: 06-17-2024 Hemoglobin A1c measurement Diabetes: Hemoglobin A1C [facility] Start: 06-01-2024 End: 06-01-2024 Patient encounter procedure 06/01/2024 3:00 PM EDT Office Visit [facility] [address] [place] [phone] Teressa Sierra NP [address] [place] [phone] Chronic kidney disease, stage 3a (HCC) (CMS/HCC) (Primary Dx); Type 2 diabetes mellitus without complication, without long-term current use of insulin (CMS/HCC); Mixed hyperlipidemia (CMS/HCC); 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 (CMS/HCC); Essential hypertension; Prostate cancer screening [facility] Comment on above: Chronic kidney disease, stage 3a (HCC) ( CMS/HCC) (Primary Dx); Type 2 diabetes mellitus without complication, without long-term current use of insulin (CMS/HCC); Mixed hyperlipidemia (CMS/HCC); 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 (CMS/HCC); Essential hypertension; Prostate cancer screening Start: 06-01-2024 End: 06-01-2025 CBC W Auto Differential panel - Blood CBC and differential Lab Routine Chronic kidney disease, stage 3a (HCC) (CMS/HCC) Expected: 06/01/2024 (Approximate), Expires: 06/01/2025 [facility] Work Phone: Comment on above: Expected: 06/01/2024 (Approximate), Expi res: 06/01/2025 Start: 06-01-2024 End: 06-01-2025 Comprehensive metabolic 2000 panel - Serum or Plasma Comprehensive metabolic panel Lab Routine Type 2 diabetes mellitus without complication, without long-term current use of insulin (CMS/HCC) Mixed hyperlipidemia (CMS/HCC) Essential hypertension Expected: 06/01/2024 (Approximate), Expires: 06/01/2025 [facility] Comment on above: Expected: 06/01/2024 (Approximate), Expi res: 06/01/2025 Start: 06-01-2024 End: 06-01-2025 Hemoglobin A1c/Hemoglobin.total in Blood Hemoglobin A1c Lab Routine Type 2 diabetes mellitus without complication, without long-term current use of insulin (CMS/HCC) Expected: 06/01/2024 (Approximate), Expires: 06/01/2025 [facility] Comment on above: Expected: 06/01/2024 (Approximate), Expi res: 06/01/2025 Start: 06-01-2024 End: 06-01-2025 Lipid 1996 panel - Serum or Plasma Lipid panel Lab Routine Type 2 diabetes mellitus without complication, without long-term current use of insulin (CMS/HCC) Mixed hyperlipidemia (CMS/HCC) Expected: 06/01/2024 (Approximate), Expires: 06/01/2025 [facility] Comment on above: Expected: 06/01/2024 (Approximate), Expi res: 06/01/2025 Start: 06-01-2024 End: 06-01-2025 Microalbumin/Creatinine panel in random Urine Microalbumin / creatinine, urine ratio Lab Routine Type 2 diabetes mellitus without complication, without long-term current use of insulin ([facility]) Essential hypertension Expected: 06/01/2024 (Approximate), Expires: 06/01/2025 [facility] Comment on above: Expected: 06/01/2024 (Approximate), Expi res: 06/01/2025 Start: 06-01-2024 End: 06-01-2025 Prostate specific Ag [Mass/volume] in Serum or Plasma PSA Lab Routine Prostate cancer screening Expected: 06/01/2024 (Approximate), Expires: 06/01/2025 [facility] Comment on above: Expected: 06/01/2024 (Approximate), Expi res: 06/01/2025 Start: 06-01-2024 End: 06-01-2025 Urinalysis complete panel - Urine Urinalysis with reflex microscopic (clean catch) Lab Routine Type 2 diabetes mellitus without complication, without long-term current use of insulin ([facility]) Essential hypertension Expected: 06/01/2024 (Approximate), Expires: 06/01/2025 [facility] Comment on above: Expected: 06/01/2024 (Approximate), Expi res: 06/01/2025 Start: 05-20-2024 Urine screening for protein Diabetes: Urine Protein Screening [facility] Start: 1964 Pneumococcal Vaccine: 65+ Years (1 of 2 - PCV) Pneumococcal Vaccine: 65+ Years (1 of 2 - PCV) [facility] Start: 1951 Pneumococcal Vaccine: 65+ Years (1 of 2 - PCV) Pneumococcal Vaccine: 65+ Years (1 of 2 - PCV) [facility] Dermatopathology exam Dermatopat hology exam Pathology and Cytology Timed Neoplasm of unspecified behavior of bone, soft tissue, and skin Release Upon Ordering for 1 Occurrences starting 12/28/2024 [facility] Work Phone: Comment on above: Release Upon Ordering for 1 Occurrences starting 12/28/2024 Dermatopathology exam Dermatopat hology exam Pathology and Cytology Timed Neoplasm of unspecified behavior of bone, soft tissue, and skin Release Upon Ordering for 1 Occurrences starting 02/08/2025 [facility] Work Phone: Comment on above: Release Upon Ordering for 1 Occurrences starting 02/08/2025 Payers Date Payer Category Payer Medicare [id number] 2023 Medicare (Managed Care) 1.2. [id number] 2023 Unknown [employer] [id number] 2023-Present [address] [place] [id number] [id number] 2023 Unknown [id number] 2009 Medicare MEDICARE [id number] 5 1959 Private Health Insurance [id number] 1959 Self-pay 1944 Unknown [id number] [id number] .2.647 1944 Unknown [id number] 2.16.840.1.151580.3.579 .2.593 1944 Unknown [id number] 2.16.840.1.799662.3.579 .2.593 1944 Unknown [id number] 2.16.840.1.098177.3.579 .2.593 1944 Unknown [id number] 2.16.840.1.476165.3.579 .2.593 1944 Unknown [id number] 2.16.840.1.857270.3.579 .2.593 1944 Unknown [id number] 2.16.840.1.370926.3.579 .2.593 1944 Unknown [id number] 2.16.840.1.183198.3.579 .2.593 1944 Unknown [id number] 2.16.840.1.873942.3.579 .2.593 1944 Unknown [id number] 2.16.840.1.357666.3.579 .2.593 1944 Unknown [id number] 2.16.840.1.170035.3.579 .2.1259 1944 Unknown [id number] 2.16.840.1.830438.3.579 .2.1259 1944 Unknown [id number] 2.16.840.1.688887.3.579 .2.1259 1944 Unknown [id number] 2.16.840.1.266648.3.579 .2.1259 1944 Unknown [id number] 2.16.840.1.585277.3.579 .2.1259 1944 Unknown [id number] 2.16.840.1.919627.3.579 .2.1259 Unknown [id number] 2.16.840.1.599971.3.579 .2.531 Social History Date Type Detail Facility Start: 12-14-2023 End: 12-19-2024 Sex Assigned At [facility] Start: 09-07-2023 End: 02-08-2025 Tobacco smoking status HIIS Ex-smoker [facility] are History of tobacco use Current smoker [facility] History of tobacco use Cigarette Smoker [facility] Start: 09-07-2023 End: 12-14-2023 Cigarettes smoked current (pack per day) - Reported 0.8 [facility] Start: 09-07-2023 End: 02-08-2025 Tobacco use and exposure User of smokeless tobacco [facility] History of tobacco use Chews Tobacco [facility] Start: 03-14-2024 End: 03-21-2025 Alcoholic beverage intake Current drinker of alcohol [...] Equipment Origin al Text Equipment Identifier Dates [id number], [id number] Start: 06-21-2024 End: 10-04-2024 Functional Status Date Assessment Result Facility 12-19-2024 Patient Health Quest ionnaire 2 item (PHQ-2) [Reported] [facility] Clinical Notes 10-11-2020 to 03-21-2025 JAY EDWARDS - 03/21/2025 3:00 PM Celso Sierra NP - 03/21/2025 3:00 PM Celso Sierra NP - 03/21/2025 7:15 AM Celso [place] CU[facility] - 03/21/2025 7:15 AM EDTPatient Instructions Note Date & Type Note Facility 03-21-2025 History of Present illness Narrative Both legs are wrapped-wound nurses come 2x a week to do dressings, they were there yesterday. Right hip pain- limping and had a hard time stepping on scale Pt would like to discuss getting him a new inhaler having troubles breathing with the weather. He sees a new auction clerk in [place] in May. Images from the original note were not included. Arianne Mcqueen is a 79 y.o. male presents with chief complaint of Diabetes HPI: Here for recheck: Was under the care for dr mayers, getting a new auction clerk, appt with dr wayne osei in [place], right now only using albuterol Was unable [...] Past treatments include calcium channel blockers, beta blockers and diuretics. The current treatment provides significant improvement. Hypertensive end-organ damage includes CAD/AZ and heart failure. There is no history [...] Size: Large adult) Pulse 59 Temp 98.1 F (Temporal) Resp 24 Wt 327 lb 3.2 oz SpO2 94% BMI 46.28 kg/m Smoking Status Former BSA 2.71 m Physical Exam Vitals and nursing note [...] in a year I did contact the [facility] Sleep lab ext [phone] to find out about scheduling the patient to see about an updated PAP machine: [email or web address] left at 16:20 on 09/27/24 Chronic obstructive pulmonary disease, unspecified (HCC) Current meds: trelegy inhaler and albuterol inhaler Follows with pulmonology Dr Riana Melchor 100 inhalers: #4 lot [id number], exp 03/18 Relevant Medications Lsaokizjrfr-Tzghawmcw-Ybhlwp (Trelegy Ellipta) 100-62.5-25 MCG/ACT aerosol powder CAD [...] diastolic (congestive) heart failure (HCC) Follows with [facility] Current meds: asa, statin, b fitz, imdur, aldactone, amlodipine ECHO 02/21/25: EF 74%, bilat atrial enlargement: right mild, left mod. No acute valve issues, mild elevated right sided pressures at 39 MGUS (monoclonal gammopathy of unknown significance) Atherosclerosis of pokagon coronary artery of pokagon heart without angina pectoris Relevant Medications atorvastatin (Lipitor) 40 MG tablet Morbid (severe) obesity due to excess calories ([facility]) Discussed with patient their BMI (actual, verses [...] Other Visit Diagnoses 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 Relevant Medications carvedilol (Coreg) 12.5 MG tablet Associated Problem(s): Morbid (severe) obesity due to excess calories ([facility]) Discussed with patient their BMI (actual, verses [...] afford jardiance A1c 5.9% 12/19/24 Associated Problem(s): Bilateral lower extremity edema Continue spironolactone script Elevate legs as much as possible Limit sodium and wear compression stockings Associated Problem(s): CAD (coronary artery disease) Continue current meds/dose Associated Problem(s): Chronic diastolic (congestive) heart failure (HCC) Follows with [facility] Current meds: asa, statin, b fitz, imdur, aldactone, amlodipine ECHO 02/21/25: EF 74%, bilat atrial enlargement: right mild, left mod. No acute valve issues, mild elevated right sided pressures at 39 Associated Problem(s): Essential hypertension Please check blood pressure daily and record DASH diet Limit caffeine Take medication as directed Contact office if chest pain, pressure, dizziness, shortness of breath, swelling legs Recommend slow position changes Current meds: amlodipine, carvedilol, aldactone Associated Problem(s): Varicose veins of bilateral lower extremities with pain Continue with [facility] Body Associated Problem(s): Chronic obstructive pulmonary disease, unspecified (HCC) Current meds: trelegy inhaler and albuterol inhaler Follows with pulmonology Dr Riana Melchor 100 inhalers: #4 lot [id number], exp 03/18 Associated Problem(s): Sleep apnea You have a [...] in a year I did contact the [facility] Sleep lab ext [phone] to find out about scheduling the patient to see about an updated PAP machine: voicemail left at 16:20 on 09/27/24 documented in this encounter [facility] 02-08-2025 History of Present illness Narrative Images from the original note were not included. Subjective Arianne Mcqueen is a 79 y.o. male who presents [...] SOFT TISSUE, AND SKIN Right Anterior Neck Mound macule at biopsy site Skin excision Lesion [...] Neoplasm Check Margins: Yes Previous accession number: [id number] Follow up: 4-6 months, FBSE documented in this encounter [facility] 01-23-2025 Note [place] [facility] - [facility] Subjective Arianne Mcqueen is a 79 y.o. year old male patient being seen for increase in lasix and blood work. Patient complains of GROVES, leg swelling and fatigue. Patient Active Problem List Diagnosis Multiple vessel coronary artery disease Cough Edema Hypertensive disorder History of coronary artery bypass surgery Nonsustained ventricular tachycardia ([facility]HCC) Syncope and collapse Wound of sternal region Chronic diastolic congestive heart failure ([facility]) COVID-19 Hyperglycemia Metabolic syndrome MGUS (monoclonal gammopathy of unknown significance) Pericardial effusion Pneumonia, bacterial Solitary pulmonary nodule Arthritis of right hip Bilateral lower extremity edema Constipation COPD (chronic obstructive pulmonary disease) ([facility]) Encounter for subsequent annual wellness visit (AWV) in Medicare patient Hearing decreased Hypercholesterolemia Hyperpigmentation Iron deficiency Lymphedema Lymphorrhea Myocardial infarction ([facility]) Nicotine dependence Osteoarthritis of both knees Papillomatosis Sleep apnea Morbid obesity ([facility]) Venous stasis ulcer of right lower extremity ([facility]) Wound cellulitis Diabetes mellitus, type II ([facility]) intermediate (current) use of inhaled steroids Ulcer of lower extremity ([facility]) Aortic ectasia, unspecified site Body mass index (BMI) 45.0-49.9, adult ([facility]) Chronic kidney disease, stage 3a ([facility]) Type 2 diabetes mellitus with diabetic chronic kidney disease ([facility]) Type 2 diabetes mellitus with diabetic peripheral angiopathy without gangrene ([facility]) 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 (CODE) ([facility]) Family History Problem Relation Name Age of [...] He was resuscitated and admitted to the [facility]. His initial investigation was negative. He [...] In August 2021 he was admitted to [facility] and then transferred to [facility] due to COVID infection and large [...] normal. His echocardiogram July 2022 showed normal ventr (more content not included)... 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 Findings: Lesion (right chin/neck area: [id number], color variation, w some dk black/brown, no [...] pulmonology Dr Riana ZELAYA (coronary artery disease) ([facility]) Continue current meds/dose Essential hypertension (Chronic) Please [...] Morbid (severe) obesity due to excess calories ([facility]) Discussed with patient their BMI (actual, verses recommended). We have also discussed lifestyle modifications: attempts to perform physical activity as chronic conditions allow, also to monitor dietary intake: increasing protein/fruits/veggies and lowering carb intake (unless contraindicated). Limit sodas, juices, and sugary drinks. Activity difficult d/t multiple co morbidities Body mass index (BMI) 45.0-49.9, adult ([facility]) Type 2 diabetes mellitus with diabetic chronic kidney disease ([facility]) Check blood sugars daily, notify if <70 [...] asa,statin, glipizide, cannot afford jardiance A1c 5.9% 4/28/25 Relevant Orders POCT glycosylated hemoglobin (Hb A1C) [...] diabetes mellitus with diabetic chronic kidney disease ([facility]) Check blood sugars daily, notify if <70 [...] mellitus with diabetic peripheral angiopathy without gangrene ([facility]) Check blood sugars daily, notify if <70 [...] aldactone Associated Problem(s): CAD (coronary artery disease) ([facility]) Continue current meds/dose Associated Problem(s): Chronic obstructive pulmonary disease, unspecified Current meds: trelegy inhaler and albuterol inhaler Follows with pulmonology Dr Mayers documented in this encounter [facility] 12-19-2024 Instructions Teressa Sierra NP - 12/19/2024 4:30 PM EDT Referral to Dermatology: [facility] in [place], they should call you No medication dose changes A1c was good 5.9% no changes in diabetes meds documented in this encounter [facility] 10-03-2024 Note [place] [facility] - [facility] Subjective Arianne Mcqueen is a [...] coronary artery bypass surgery Nonsustained ventricular tachycardia ([facility]) Syncope and collapse Wound of sternal region Chronic diastolic congestive heart failure ([facility]) COVID-19 Hyperglycemia Metabolic syndrome MGUS (monoclonal gammopathy of unknown significance) Pericardial effusion Pneumonia, bacterial Solitary pulmonary nodule Arthritis of right hip Bilateral lower extremity edema Constipation COPD (chronic obstructive pulmonary disease) ([facility]) Encounter for subsequent annual wellness visit (AWV) in Medicare patient Hearing decreased Hypercholesterolemia Hyperpigmentation Iron deficiency Lymphedema Lymphorrhea Myocardial infarction ([facility]) Nicotine dependence Osteoarthritis of both knees Papillomatosis Sleep apnea Morbid obesity ([facility]) Venous stasis ulcer of right lower extremity ([facility]) Wound cellulitis Diabetes mellitus, type II ([facility]) 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 (current) use of inhaled steroids Ulcer of lower extremity ([facility]) Aortic ectasia, unspecified site ([facility]) Body mass index (BMI) 45.0-49.9, adult ([facility]) Chronic kidney disease, stage 3a ([facility]) Type 2 diabetes mellitus with diabetic chronic kidney disease ([facility]) Type 2 diabetes mellitus with diabetic peripheral angiopathy without gangrene ([facility]) 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 (CODE) ([facility]) Family History Problem Relation Name Age of [...] He was resuscitated and admitted to the [facility]. His initial investigation was negative. He [...] In August 2021 he was admitted to [facility] and then transferred to [facility] due to COVID infection and large [...] revascularize right coronary (more content not included)... 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 He does not see a research soil scientist.Eye exam is not current. Hypertension This is [...] (KEFLEX) 500 mg, 2 times daily Drug [place] Unilet Lancets 33G misc 1 each, Other, [...] Diagnosis Date Anemia CAD (coronary artery disease) ([facility]) Constipation COPD (chronic obstructive pulmonary disease) ([facility]) Diabetes mellitus, type II ([facility]/HCC) Hearing decreased Heart disease Hip pain, right [...] a year Chronic obstructive pulmonary disease, unspecified ([facility]) Current meds: trelegy inhaler and albuterol inhaler Follows with pulmonology Dr Mayers Bilateral lower extremity edema Continue spironolactone script Elevate legs as much as possible Limit sodium and wear compression stockings Essential hypertension (Chronic) Please check blood pressure daily and record DASH diet Limit caffeine Take medication as directed Contact office if chest pain, pressure, dizziness, shortness of breath, swelling legs Recommend slow position changes Current meds: amlodipine, carvedilol, aldactone Chronic diastolic (congestive) heart failure ([facility]) Follows with [facility] Current meds: asa, statin, b fitz, imdur, aldactone, amlodipine Atherosclerosis of pokagon coronary artery of pokagon heart without angina pectoris ([facility]) Current meds: asa, statin, b fitz, imdur, aldactone, Cardiology: [facility] Pat Morbid (severe) obesity due to excess calories ([facility]) Discussed with patient their BMI (actual, verses recommended). We have also discussed lifestyle modifications: attempts to perform physical activity as chronic conditions allow, also to monitor dietary intake: increasing protein/fruits/veggies and lowering carb intake (unless contraindicated). Limit sodas, juices, and sugary drinks. Activity difficult d/t multiple co morbidities Chronic kidney disease, stage 3a (HCC) ([facility]) Monitor labs yearly and prn Recommend adequate DM, HTN control, as well as heart failure Body mass index (BMI) 45.0-49.9, adult ([facility]) Other ventricular tachycardia ([facility]/H[facility]) Noted on holter in 2020 Cont per cardiology 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 (CODE) ([facility]) Mixed hyperlipidemia ([facility]) Continue statin Check labs yearly and prn dose chagnes Type 2 diabetes mellitus with diabetic chronic kidney disease ([facility]) Check blood sugars daily, notify if <70 [...] mellitus with diabetic peripheral angiopathy without gangrene ([facility]) On asa, statin Stasis edema with ulcer of both lower extremities ([facility]) Diuretics, elevation, compression Associated Problem(s): Mixed hyperlipidemia ([facility]) Continue statin Check labs yearly and prn dose chagnes Associated Problem(s): Morbid (severe) obesity due to excess calories ([facility]) Discussed with patient their BMI (actual, verses recommended). We have also discussed lifestyle modifications: attempts to perform physical activity as chronic conditions allow, also to monitor dietary intake: increasing protein/fruits/veggies and lowering carb intake (unless contraindicated). Limit sodas, juices, and sugary drinks. Activity difficult d/t multiple co morbidities Associated Problem(s): Type 2 diabetes mellitus with diabetic chronic kidney disease ([facility]) Check blood sugars daily, notify if <70 [...] Associated Problem(s): Chronic diastolic (congestive) heart failure ([facility]/HCC) Follows with [facility] Current meds: asa, statin, b fitz, imdur, aldactone, amlodipine Associated Problem(s): Atherosclerosis of pokagon coronary artery of pokagon heart without angina pectoris (CMS/HCC) Current meds: asa, statin, b fitz, imdur, aldactone, Cardiology: [facility] Pat Associated Problem(s): Chronic obstructive pulmonary disease, unspecified (CMS/HCC) Current meds: trelegy inhaler and albuterol inhaler Follows with pulmonology Dr Mayers Associated Problem(s): Sleep apnea You have a [...] in a year I did contact the [facility] Sleep lab ext [phone] to find out about scheduling the patient to see about an updated PAP machine: voicemail left at 16:20 on 09/27/24 documented in this encounter [facility] 09-27-2024 Instructions Teressa Sierra NP - 09/27/2024 2:00 PM EST Sleep apnea: I will call The [facility] to see about getting you into see Dr Amado Wounds: continue with wound care and home health documented in this encounter [facility] 06-01-2024 History of Present illness Narrative Associated Problem(s): Diabetes mellitus, type II (CMS/HCC) Cannot afford ozempic, although his sugars seem [...] sugars. Associated Problem(s): CAD (coronary artery disease) (CMS/HCC) Continue current meds/dose Associated Problem(s): Essential hypertension At goal no dose changes Associated Problem(s): COPD (chronic obstructive pulmonary disease) ([facility]) Continue with dr mayers Needs a refill of trelegy , he needs to contact them Associated Problem(s): Sleep apnea Non compliant with PAP use, machine is broke , difficulty finding DME who takes his insurance I did leave a VM on Sleep lab TB regarding this for them to assist Pt is seeing a medical claims specialist for his legs. Pt had a fasting BS of 130 Pt would like a refill on his trelegy ellipta He does not see dr mayers til next year Images from the original [...] no compliance problems. Hypertensive end-organ damage includes CAD/AZ and PVD. Diabetes He presents for his [...] being taken. He does not see a research soil scientist.Eye exam is current. SUBJECTIVE: MEDICATIONS: Current Outpatient [...] Diagnosis Date Anemia CAD (coronary artery disease) ([facility]) Constipation COPD (chronic obstructive pulmonary disease) ([facility]) Diabetes mellitus, type II ([facility]) Hearing decreased Heart disease Hip pain, right Hypercholesterolemia ([facility]) Hypertension ([facility]) Iron deficiency Myocardial infarction ([facility]) Osteoarthritis of both knees, unspecified osteoarthritis type [...] to assist COPD (chronic obstructive pulmonary disease) ([facility]) Continue with dr mayers Needs a refill of trelegy , he needs to contact them CAD (coronary artery disease) ([facility]) Continue current meds/dose Diabetes mellitus, type II ([facility]) - Primary Cannot afford ozempic, although his [...] Relevant Orders PSA documented in this encounter [facility] 03-09-2024 Note Cardiovascular Medic [facility] SUBJECTIVE Chief Complaint Patient presents with [...] edema Constipation COPD (chronic obstructive pulmonary disease) ([facility]) Encounter for subsequent annual wellness visit (AWV) in Medicare patient Hearing decreased Hypercholesterolemia Hyperpigmentation Iron deficiency Lymphedema Lymphorrhea Myocardial infarction (CMS/HCC) Nicotine dependence Osteoarthritis of both knees Papillomatosis Sleep apnea Morbid obesity (CMS/HCC) Venous stasis ulcer of right lower extremity (CMS/HCC) Wound cellulitis Diabetes mellitus, type II (CMS/HCC) intermediate (current) use of inhaled steroids Ulcer of [...] Venous stasis skin (more content not included)... [facility] 09-03-2022 Evaluation note Encounter Date Diagnosis Assessment [...] have been reviewed. Hospital notes from the [facility] from his prior admission on 08/18/2022 [...] years ago and was just admitted to [facility] with pneumonia a couple of weeks [...] as documented in the electronic medical record. [employer] Other 09-15-2022 NotePROCEDURE: XR HIP RT 2 3V WO PELVIS HISTORY: Pain in right hip joint COMPARISON: XR pelvis 09/15/2021 FINDINGS: BONES:Complete loss of the joint space with [id number] articulation. Large periarticular degenerative osteophytes. No fracture, dislocation, bone lesion. SOFT TISSUES:No visible soft tissue swelling. EFFUSION:None visible. OTHER: Atherosclerotic disease. IMPRESSION: 1. 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 2. No appreciable acute abnormality. Electronically authenticated by: NOREEN KELLY Date: 2022-05-08 10:48[id number] NoteThe [facility] 04-23-2021 NoteThe [facility]02-18-2021 NotePatient Outreach ([facility]OVAM[facility]) ARIANNE MCQUEEN ([id number]) 1945 M Date Time Provider Department 10/11/20 TERRANCE CABALLERO During your visit today, we recorded the following information about you: Allergies As of Date: 10/11/2020 (No Known Allergies) Date Reviewed: 04/21/2020 Reviewed by: Willie Sotelo - Fully Assessed Order(s):SARS-COVID VACCINE 1ST DOSE APPT [[id number]] Order #: [id number] FUTURE Prescriptions as of 10/11/2020 Sig: TRAZODONE [...] [I73.9] 08/19/2012 Letter Text Encounter Status:Closed by [employer] on 10/15/20[facility] Evaluation note* Diagnosis Type 2 diabetes mellitus without complication, without long-term current use of insulin (CMS/HCC)- Primary Chronic kidney disease, stage 3a (HCC) (CMS/HCC) Mixed hyperlipidemia (CMS/HCC) Mixed hyperlipidemia 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 (CMS/HCC) Essential hypertension Unspecified essential hypertension Prostate cancer screening Special screening for malignant neoplasm of prostate Obstructive sleep apnea syndrome Obstructive sleep apnea (adult) (pediatric) Chronic obstructive pulmonary disease, unspecified COPD type (CMS/HCC) Venous stasis of both lower extremities Morbid (severe) obesity due to excess calories (CMS/HCC) Body mass index (BMI) 45.0-49.9, adult (CMS/HCC) documented in this encounter [facility] HealthcareEvaluation note* Diagnosis Type 2 [...] apnea (adult) (pediatric) 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 (CMS/HCC) Essential hypertension [...] (CMS/HCC) Mixed hyperlipidemia 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 (CMS/HCC) Essential hypertension Unspecified essential hypertension Prostate cancer screening Special screening for malignant neoplasm of prostate Obstructive sleep apnea syndrome Obstructive sleep apnea (adult) (pediatric) Chronic obstructive pulmonary disease, unspecified COPD type (CMS/HCC) Venous stasis of both lower extremities Morbid (severe) obesity due to excess calories (CMS/HCC) Body mass index (BMI) 45.0-49.9, adult (CMS/HCC) 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 (CMS/HCC)- Primary Atherosclerosis of pokagon coronary artery of pokagon heart without angina pectoris (CMS/HCC) Mixed hyperlipidemia (CMS/HCC) Mixed hyperlipidemia documented in this encounter [facility] HealthcareEvaluation note* Diagnosis Type 2 [...] apnea (adult) (pediatric) 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 (CMS/HCC) Essential hypertension [...] (CMS/HCC) Body mass index (BMI) 45.0-49.9, adult ([facility]/HCC) Type 2 diabetes mellitus with other skin [...] (CMS/HCC) Mixed hyperlipidemia 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 (CMS/HCC) Essential hypertension [...] osteoarthritis of knee 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 (CMS/HCC) documented in this encounter [facility] HealthcareEvaluation note* Diagnosis Type 2 [...] apnea (adult) (pediatric) 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 (CMS/HCC) Essential hypertension [...] (CMS/HCC) Mixed hyperlipidemia 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 (CMS/HCC) Essential hypertension [...] (HCC) (CMS/HCC)- Primary documented in this encounter [facility] HealthcareEvaluation note* Diagnosis Type 2 diabetes [...] apnea (adult) (pediatric) 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 (CMS/HCC) Essential hypertension [...] (CMS/HCC) Body mass index (BMI) 45.0-49.9, adult ([facility]/HCC) Type 2 diabetes mellitus with other skin ulcer (CODE) ([facility]) Non-pressure chronic ulcer of unspecified part of unspecified lower leg with unspecified severity ([facility]) Peripheral vascular disease, unspecified (CMS/HCC) Peripheral vascular [...] (CMS/HCC) Mixed hyperlipidemia 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 (CMS/HCC) Essential hypertension Unspecified essential hypertension Prostate cancer screening Special screening for malignant neoplasm of prostate Obstructive sleep apnea syndrome Obstructive sleep apnea (adult) (pediatric) Chronic obstructive pulmonary disease, unspecified COPD type (CMS/HCC) Venous stasis of both lower extremities Morbid (severe) obesity due to excess calories (CMS/HCC) Body mass index (BMI) 45.0-49.9, adult ([facility]) Type 2 diabetes mellitus without complications (CMS/HCC) documented in this encounter [facility] HealthcareEvaluation note* Diagnosis Type 2 [...] apnea (adult) (pediatric) 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 (CMS/HCC) Essential hypertension [...] (CMS/HCC) Mixed hyperlipidemia 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 (CMS/HCC) Essential hypertension Unspecified essential hypertension Prostate cancer screening Special screening for malignant neoplasm of prostate Obstructive sleep apnea syndrome Obstructive sleep apnea (adult) (pediatric) Chronic obstructive pulmonary disease, unspecified COPD type (CMS/HCC) Venous stasis of both lower extremities Morbid (severe) obesity due to excess calories ([facility]) Body mass index (BMI) 45.0-49.9, adult ([facility]) Anemia, unspecified documented in this encounter [facility] HealthcareEvaluation note* Diagnosis Type 2 diabetes [...] apnea (adult) (pediatric) 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 (CMS/HCC) Essential hypertension [...] Body mass index (BMI) 45.0-49.9, adult ([facility]) Type 2 diabetes mellitus with other skin ulcer (CODE) (CMS/HCC) Non-pressure chronic ulcer of unspecified part of unspecified lower leg with unspecified severity (CMS/HCC) Peripheral vascular disease, unspecified (CMS/HCC) Peripheral vascular disease, unspecified Other ventricular tachycardia (CMS/HCC) 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 (CODE) ([facility]) Aortic ectasia, unspecified site (CMS/HCC) Aortic ectasia, unspecified site Venous stasis of both lower extremities Essential hypertension Unspecified essential hypertension Type 2 diabetes mellitus without complication, without long-term current use of insulin (CMS/HCC)- Primary Chronic kidney disease, stage 3a (HCC) (CMS/HCC) Mixed hyperlipidemia (CMS/HCC) Mixed hyperlipidemia 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 (CMS/HCC) Essential hypertension Unspecified essential hypertension Prostate cancer screening Special screening for malignant neoplasm of prostate Obstructive sleep apnea syndrome Obstructive sleep apnea (adult) (pediatric) Chronic obstructive pulmonary disease, unspecified COPD type (CMS/HCC) Venous stasis of both lower extremities Morbid (severe) obesity due to excess calories ([facility]) Body mass index (BMI) 45.0-49.9, adult ([facility]) Type 2 diabetes mellitus without complication, without long-term current use of insulin (CMS/HCC) documented in this encounter [facility] HealthcareEvaluation note* Diagnosis Type 2 diabetes mellitus without complication, without long-term current use of insulin (CMS/HCC)- Primary Essential hypertension Unspecified essential hypertension Varicose veins of bilateral lower extremities with pain Morbid obesity ([facility]) Morbid obesity Encounter for subsequent annual wellness visit (AWV) in Medicare patient- Primary Chronic obstructive pulmonary disease, unspecified COPD type (CMS/HCC) Obstructive sleep apnea syndrome Obstructive sleep apnea (adult) (pediatric) 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 (CMS/HCC) Essential hypertension [...] (CMS/HCC) Body mass index (BMI) 45.0-49.9, adult ([facility]) Type 2 diabetes mellitus with other skin ulcer (CODE) (CMS/HCC) Non-pressure chronic ulcer of unspecified part of unspecified lower leg with unspecified severity ([facility]) Peripheral vascular disease, unspecified (CMS/HCC) Peripheral vascular disease, unspecified Other ventricular tachycardia ([facility]) 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 (CODE) ([facility]) Aortic ectasia, unspecified site ([facility]) Aortic ectasia, unspecified site Venous stasis of both lower extremities Essential hypertension Unspecified essential hypertension Type 2 diabetes mellitus without complication, without long-term current use of insulin (CMS/HCC)- Primary Chronic kidney disease, stage 3a (HCC) (CMS/HCC) Mixed hyperlipidemia (CMS/HCC) Mixed hyperlipidemia 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 (CMS/HCC) Essential hypertension Unspecified essential hypertension Prostate cancer screening Special screening for malignant neoplasm of prostate Obstructive sleep apnea syndrome Obstructive sleep apnea (adult) (pediatric) Chronic obstructive pulmonary disease, unspecified COPD type (CMS/HCC) Venous stasis of both lower extremities Morbid (severe) obesity due to excess calories (CMS/HCC) Body mass index (BMI) 45.0-49.9, adult ([facility]) Localized edema Edema documented in this encounter [facility] HealthcareEvaluation note* Diagnosis Type 2 diabetes mellitus without complication, without long-term current use of insulin ([facility])- Primary Essential hypertension Unspecified essential hypertension Varicose veins of bilateral lower extremities with pain Morbid obesity (CMS/HCC) Morbid obesity Encounter for subsequent annual wellness visit (AWV) in Medicare patient- Primary Chronic obstructive pulmonary disease, unspecified COPD type (CMS/HCC) Obstructive sleep apnea syndrome Obstructive sleep apnea (adult) (pediatric) 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 (CMS/HCC) Essential hypertension [...] Chronic kidney disease, stage 3a (HCC) ([facility]) Morbid (severe) obesity due to excess calories (CMS/[facility]) Body mass index (BMI) 45.0-49.9, adult ([facility]) Type 2 diabetes mellitus with other skin ulcer (CODE) ([facility]) Non-pressure chronic ulcer of unspecified part of unspecified lower leg with unspecified severity ([facility]) Peripheral vascular disease, unspecified (CMS/[facility]) Peripheral vascular disease, unspecified Other ventricular tachycardia (CMS/[facility]) 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 (CODE) ([facility]) Aortic ectasia, unspecified site ([facility]) Aortic ectasia, unspecified site Venous stasis of both lower extremities Essential hypertension Unspecified essential hypertension Type 2 diabetes mellitus without complication, without long-term current use of insulin ([facility])- Primary Chronic kidney disease, stage 3a (HCC) (CMS/HCC) Mixed hyperlipidemia ([facility]) Mixed hyperlipidemia 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 ([facility]) Essential hypertension Unspecified essential hypertension Prostate cancer screening Special screening for malignant neoplasm of prostate Obstructive sleep apnea syndrome Obstructive sleep apnea (adult) (pediatric) Chronic obstructive pulmonary disease, unspecified COPD type ([facility]) Venous stasis of both lower extremities Morbid (severe) obesity due to excess calories ([facility]) Body mass index (BMI) 45.0-49.9, adult ([facility]) Obstructive sleep apnea syndrome- Primary Obstructive sleep apnea (adult) (pediatric) Type 2 diabetes mellitus with diabetic chronic kidney disease ([facility]) 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 (CODE) ([facility]) Morbid (severe) obesity due to excess calories ([facility]) Body mass index (BMI) 45.0-49.9, adult ([facility]) Type 2 diabetes mellitus with diabetic peripheral angiopathy without gangrene (CMS/[facility]) Other ventricular tachycardia ([facility]) Chronic obstructive pulmonary disease, unspecified ([facility]) Chronic diastolic (congestive) heart failure ([facility]) Atherosclerosis of pokagon coronary artery of pokagon heart without angina pectoris (CMS/HCC) Essential hypertension Unspecified essential hypertension Chronic kidney disease, stage 3a (HCC) (CMS/HCC) Bilateral lower extremity edema Stasis edema with ulcer of both lower extremities (CMS/HCC) Mixed hyperlipidemia (CMS/HCC) Mixed hyperlipidemia Stasis dermatitis 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 hypertension (CMS/HCC) 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 (CMS/HCC) documented in this encounter [facility] HealthcareEvaluation note* Diagnosis Type 2 [...] apnea (adult) (pediatric) 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 (CMS/HCC) Essential hypertension [...] Chronic kidney disease, stage 3a (HCC) ([facility]) Morbid (severe) obesity due to excess calories (CMS/[facility]) Body mass index (BMI) 45.0-49.9, adult ([facility]) Type 2 diabetes mellitus with other skin [...] (CMS/HCC) Mixed hyperlipidemia 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 (CMS/HCC) Essential hypertension [...] diastolic (congestive) heart failure (CMS/HCC) Atherosclerosis of pokagon coronary artery of pokagon heart without angina pectoris (CMS/HCC) Essential hypertension Unspecified essential hypertension Chronic kidney disease, stage 3a (HCC) (CMS/HCC) Bilateral lower extremity edema Stasis edema with ulcer of both lower extremities (CMS/HCC) Mixed hyperlipidemia (CMS/HCC) Mixed hyperlipidemia Stasis dermatitis 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 hypertension (CMS/HCC) 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 (CMS/HCC) Type 2 diabetes mellitus without complications (CMS/HCC) documented in this encounter [facility] HealthcareEvaluation note* Diagnosis Type 2 [...] apnea (adult) (pediatric) 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 (CMS/HCC) Essential hypertension Unspecified essential hypertension Type 2 diabetes mellitus without complication, without long-term current use of insulin Chronic diastolic congestive heart failure ([facility]) Venous stasis of both lower extremities Bilateral lower extremity edema Morbid obesity ([facility]/HCC) Morbid obesity Type 2 diabetes mellitus without complication, without long-term current use of insulin- Primary Type 2 diabetes mellitus with diabetic chronic kidney disease ([facility]/HCC) Chronic kidney disease, stage 3a (HCC) ([facility]) Morbid (severe) obesity due to excess calories ([facility]) Body mass index (BMI) 45.0-49.9, adult ([facility]) Type 2 diabetes mellitus with other skin ulcer (CODE) Non-pressure chronic ulcer of unspecified part of unspecified lower leg with unspecified severity ([facility]) Peripheral vascular disease, unspecified ([facility]) Peripheral vascular disease, unspecified Other ventricular tachycardia 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 (CODE) Aortic ectasia, unspecified site ([facility]) Aortic ectasia, unspecified site Venous stasis of both lower extremities Essential hypertension Unspecified essential hypertension Type 2 diabetes mellitus without complication, without long-term current use of insulin- Primary Chronic kidney disease, stage 3a (HCC) ([facility]) Mixed hyperlipidemia ([facility]) Mixed hyperlipidemia 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 ([facility]) Essential hypertension Unspecified essential hypertension Prostate cancer screening Special screening for malignant neoplasm of prostate Obstructive sleep apnea syndrome Obstructive sleep apnea (adult) (pediatric) Chronic obstructive pulmonary disease, unspecified COPD type ([facility]) Venous stasis of both lower extremities Morbid (severe) obesity due to excess calories ([facility]) Body mass index (BMI) 45.0-49.9, adult ([facility]) Obstructive sleep apnea syndrome- Primary Obstructive sleep apnea (adult) (pediatric) Type 2 diabetes mellitus with diabetic chronic kidney disease ([facility]) 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 (CODE) Morbid (severe) obesity due to excess calories ([facility]) Body mass index (BMI) 45.0-49.9, adult ([facility]) Type 2 diabetes mellitus with diabetic peripheral angiopathy without gangrene ([facility]) Other ventricular tachycardia Chronic obstructive pulmonary disease, unspecified Chronic diastolic (congestive) heart failure Atherosclerosis of pokagon coronary artery of pokagon heart without angina pectoris ([facility]) Essential hypertension Unspecified essential hypertension Chronic kidney disease, stage 3a (HCC) (CMS/HCC) Bilateral lower extremity edema Stasis edema with ulcer of both lower extremities (CMS/HCC) Mixed hyperlipidemia ([facility]/HCC) Mixed hyperlipidemia Stasis dermatitis 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 hypertension ([facility]/HCC) 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 (CMS/HCC) Chronic obstructive pulmonary disease, unspecified COPD type (CMS/HCC)- Primary 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 ([facility]) Essential hypertension Unspecified essential hypertension Type 2 diabetes mellitus with stage 3 chronic kidney disease, without long-term current use of insulin, unspecified whether stage 3a or 3b CKD (HCC) ([facility]) MGUS (monoclonal gammopathy of unknown significance) Monoclonal paraproteinemia Encounter for subsequent annual wellness visit (AWV) in Medicare patient Bilateral primary osteoarthritis of knee 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 ([facility]) documented in this encounter [facility] HealthcareEvaluation note* Diagnosis Type 2 diabetes mellitus without complication, without long-term current use of insulin- Primary Essential hypertension Unspecified essential hypertension Varicose veins of bilateral lower extremities with pain Morbid obesity ([facility]) Morbid obesity Encounter for subsequent annual wellness visit (AWV) in Medicare patient- Primary Chronic obstructive pulmonary disease, unspecified COPD type ([facility]) Obstructive sleep apnea syndrome Obstructive sleep apnea (adult) (pediatric) 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 ([facility]) Essential hypertension Unspecified essential hypertension Type 2 diabetes mellitus without complication, without long-term current use of insulin Chronic diastolic congestive heart failure ([facility]) Venous stasis of both lower extremities Bilateral lower extremity edema Morbid obesity ([facility]/HCC) Morbid obesity Type 2 diabetes mellitus without complication, without long-term current use of insulin- Primary Type 2 diabetes mellitus with diabetic chronic kidney disease ([facility]) Chronic kidney disease, stage 3a (HCC) ([facility]) Morbid (severe) obesity due to excess calories ([facility]) Body mass index (BMI) 45.0-49.9, adult ([facility]) Type 2 diabetes mellitus with other skin ulcer (CODE) Non-pressure chronic ulcer of unspecified part of unspecified lower leg with unspecified severity ([facility]) Peripheral vascular disease, unspecified ([facility]) Peripheral vascular disease, unspecified Other ventricular tachycardia [...] (CMS/HCC) Mixed hyperlipidemia 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 (CMS/HCC) Essential hypertension [...] Chronic diastolic (congestive) heart failure Atherosclerosis of pokagon coronary artery of pokagon heart without angina pectoris (CMS/HCC) Essential hypertension Unspecified essential hypertension Chronic kidney disease, stage 3a (HCC) (CMS/HCC) Bilateral lower extremity edema Stasis edema with ulcer of both lower extremities (CMS/HCC) Mixed hyperlipidemia (CMS/HCC) Mixed hyperlipidemia Stasis dermatitis 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 hypertension (CMS/HCC) 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 (CMS/HCC) Encounter for subsequent annual wellness visit (AWV) in Medicare patient- Primary Chronic obstructive pulmonary disease, unspecified COPD type (CMS/HCC) 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 (CMS/HCC) Essential hypertension Unspecified essential hypertension Type 2 diabetes mellitus with stage 3 chronic kidney disease, without long-term current use of insulin, unspecified whether stage 3a or 3b CKD (HCC) (CMS/HCC) Neoplasm of uncertain behavior Neoplasm of uncertain behavior, site unspecified Body mass index (BMI) 45.0-49.9, adult (CMS/HCC) Morbid (severe) obesity due to excess calories (CMS/HCC) documented in this encounter [facility] HealthcareEvaluation note* Diagnosis Type 2 [...] apnea (adult) (pediatric) 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 (CMS/HCC) Essential hypertension [...] (CMS/HCC) Mixed hyperlipidemia 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 (CMS/HCC) Essential hypertension Unspecified essential hypertension Prostate cancer screening Special screening for malignant neoplasm of prostate Obstructive sleep apnea syndrome Obstructive sleep apnea (adult) (pediatric) Chronic obstructive pulmonary disease, unspecified COPD type (CMS/HCC) Venous stasis of both lower extremities Morbid (severe) obesity due to excess calories ([facility]) Body mass index (BMI) 45.0-49.9, adult ([facility]) Obstructive sleep apnea syndrome- Primary Obstructive sleep apnea (adult) (pediatric) Type 2 diabetes mellitus with diabetic chronic kidney disease ([facility]) 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 (CODE) Morbid (severe) obesity due to excess calories ([facility]) Body mass index (BMI) 45.0-49.9, adult ([facility]) Type 2 diabetes mellitus with diabetic peripheral angiopathy without gangrene ([facility]) Other ventricular tachycardia Chronic obstructive pulmonary disease, unspecified Chronic diastolic (congestive) heart failure Atherosclerosis of pokagon coronary artery of pokagon heart without angina pectoris ([facility]) Essential hypertension Unspecified essential hypertension Chronic kidney disease, stage 3a (HCC) ([facility]) Bilateral lower extremity edema Stasis edema with ulcer of both lower extremities ([facility]) Mixed hyperlipidemia ([facility]) Mixed hyperlipidemia Stasis dermatitis 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 hypertension ([facility]) 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 ([facility]) Encounter for subsequent annual wellness visit (AWV) in Medicare patient- Primary Chronic obstructive pulmonary disease, unspecified COPD type ([facility]) 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 ([facility]) Essential hypertension Unspecified essential hypertension Type 2 diabetes mellitus with stage 3 chronic kidney disease, without long-term current use of insulin, unspecified whether stage 3a or 3b CKD (HCC) ([facility]) Neoplasm of uncertain behavior Neoplasm of uncertain behavior, site unspecified Body mass index (BMI) 45.0-49.9, adult ([facility]/HCC) Morbid (severe) obesity due to excess calories ([facility]) Epidermal inclusion cyst- Primary Sebaceous cyst Neoplasm of unspecified behavior of bone, soft tissue, and skin documented in this encounter [facility] HealthcareEvaluation note* Diagnosis Type 2 diabetes mellitus without complication, without long-term current use of insulin (HCC)- Primary Essential hypertension Unspecified essential hypertension Varicose veins of bilateral lower extremities with pain Morbid obesity ([facility]) Morbid obesity Encounter for subsequent annual wellness visit (AWV) in Medicare patient- Primary Chronic obstructive pulmonary disease, unspecified COPD type (HCC) Obstructive sleep apnea syndrome Obstructive sleep apnea (adult) (pediatric) 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 Essential hypertension Unspecified essential hypertension Type 2 diabetes mellitus without complication, without long-term current use of insulin ([facility]) Chronic diastolic congestive heart failure (HCC) Venous stasis of both lower extremities Bilateral lower extremity edema Morbid obesity ([facility]) Morbid obesity Type 2 diabetes mellitus without complication, without long-term current use of insulin (HCC)- Primary Type 2 diabetes mellitus with diabetic chronic kidney disease (HCC) Chronic kidney disease, stage 3a ([facility] Morbid (severe) obesity due to excess calories ([facility]) Body mass index (BMI) 45.0-49.9, adult ([facility]) Type 2 diabetes mellitus with other skin ulcer (CODE) ([facility]) Non-pressure chronic ulcer of unspecified part of unspecified lower leg with unspecified severity ([facility]) Peripheral vascular disease, unspecified Other ventricular tachycardia ([facility]) 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 (CODE) ([facility]) Aortic ectasia, unspecified site Venous stasis of both lower extremities Essential hypertension Unspecified essential hypertension Type 2 diabetes mellitus without complication, without long-term current use of insulin ([facility])- Primary Chronic kidney disease, stage 3a ([facility]) Mixed hyperlipidemia Mixed hyperlipidemia 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 Essential hypertension Unspecified essential hypertension Prostate cancer screening Special screening for malignant neoplasm of prostate Obstructive sleep apnea syndrome Obstructive sleep apnea (adult) (pediatric) Chronic obstructive pulmonary disease, unspecified COPD type ([facility]) Venous stasis of both lower extremities Morbid (severe) obesity due to excess calories ([facility]) Body mass index (BMI) 45.0-49.9, adult ([facility] [place]) Obstructive sleep apnea syndrome- Primary Obstructive sleep apnea (adult) (pediatric) 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 (CODE) ([facility]) Morbid (severe) obesity due to excess calories ([facility] [place]) Body mass index (BMI) 45.0-49.9, adult ([facility] [place]) Type 2 diabetes mellitus with diabetic peripheral angiopathy without gangrene (HCC) Other ventricular tachycardia (HCC) Chronic obstructive pulmonary disease, unspecified (HCC) Chronic diastolic (congestive) heart failure (HCC) Atherosclerosis of pokagon coronary artery of pokagon heart without angina pectoris Essential hypertension Unspecified essential hypertension Chronic kidney disease, stage 3a ([facility]) Bilateral lower extremity edema Stasis edema with ulcer of both lower extremities (HCC) Mixed hyperlipidemia Mixed hyperlipidemia Stasis dermatitis 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 hypertension (HCC) 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 Encounter for subsequent annual wellness visit (AWV) in Medicare patient- Primary Chronic obstructive pulmonary disease, unspecified COPD type (HCC) 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 Essential hypertension Unspecified essential hypertension Type 2 diabetes mellitus with stage 3 chronic kidney disease, without long-term current use of insulin, unspecified whether stage 3a or 3b CKD (HCC) Neoplasm of uncertain behavior Neoplasm of uncertain behavior, site unspecified Body mass index (BMI) 45.0-49.9, adult ([facility] [place]) Morbid (severe) obesity due to excess calories [place] Neoplasm of unspecified behavior of bone, soft tissue, and skin- Primary documented in this encounter [facility] HealthcareEvaluation note* Diagnosis Type 2 diabetes mellitus without complication, without long-term current use of insulin ([facility])- Primary Essential hypertension Unspecified essential hypertension Varicose veins of bilateral lower extremities with pain Morbid obesity ([facility]) Morbid obesity Encounter for subsequent annual wellness visit (AWV) in Medicare patient- Primary Chronic obstructive pulmonary disease, unspecified COPD type (HCC) Obstructive sleep apnea syndrome Obstructive sleep apnea (adult) (pediatric) 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 Essential hypertension Unspecified essential hypertension Type 2 diabetes mellitus without complication, without long-term current use of insulin ([facility]) Chronic diastolic congestive heart failure (HCC) Venous stasis of both lower extremities Bilateral lower extremity edema Morbid obesity ([facility]) Morbid obesity Type 2 diabetes mellitus without complication, without long-term current use of insulin ([facility])- Primary Type 2 diabetes mellitus with diabetic chronic kidney disease (HCC) Chronic kidney disease, stage 3a ([facility]) Morbid (severe) obesity due to excess calories ([facility]) Body mass index (BMI) 45.0-49.9, adult ([facility]) Type 2 diabetes mellitus with other skin ulcer (CODE) (HCC) Non-pressure chronic ulcer of unspecified part of unspecified lower leg with unspecified severity ([facility]) Peripheral vascular disease, unspecified Other ventricular tachycardia ([facility]) 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 (CODE) (HCC) Aortic ectasia, unspecified site Venous stasis of both lower extremities Essential hypertension Unspecified essential hypertension Type 2 diabetes mellitus without complication, without long-term current use of insulin (HCC)- Primary Chronic kidney disease, stage 3a ([facility]) Mixed hyperlipidemia Mixed hyperlipidemia 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 Essential hypertension Unspecified essential hypertension Prostate cancer screening Special screening for malignant neoplasm of prostate Obstructive sleep apnea syndrome Obstructive sleep apnea (adult) (pediatric) Chronic obstructive pulmonary disease, unspecified COPD type (HCC) Venous stasis of both lower extremities Morbid (severe) obesity due to excess calories ([facility] Body mass index (BMI) 45.0-49.9, adult ([facility]) Obstructive sleep apnea syndrome- Primary Obstructive sleep apnea (adult) (pediatric) 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 (CODE) (HCC) Morbid (severe) obesity due to excess calories ([facility]) Body mass index (BMI) 45.0-49.9, adult ([facility]) Type 2 diabetes mellitus with diabetic peripheral angiopathy without gangrene (HCC) Other ventricular tachycardia (HCC) Chronic obstructive pulmonary disease, unspecified (HCC) Chronic diastolic (congestive) heart failure (HCC) Atherosclerosis of pokagon coronary artery of pokagon heart without angina pectoris Essential hypertension Unspecified essential hypertension Chronic kidney disease, stage 3a ([facility] Bilateral lower extremity edema Stasis edema with ulcer of both lower extremities (HCC) Mixed hyperlipidemia Mixed hyperlipidemia Stasis dermatitis 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 hypertension (HCC) 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 Encounter for subsequent annual wellness visit (AWV) in Medicare patient- Primary Chronic obstructive pulmonary disease, unspecified COPD type (HCC) 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 Essential hypertension Unspecified essential hypertension Type 2 diabetes mellitus with stage 3 chronic kidney disease, without long-term current use of insulin, unspecified whether stage 3a or 3b CKD (HCC) Neoplasm of uncertain behavior Neoplasm of uncertain behavior, site unspecified Body mass index (BMI) 45.0-49.9, adult ([facility] [place]) Morbid (severe) obesity due to excess calories ([facility]) Essential hypertension- Primary Unspecified essential hypertension Obstructive sleep apnea syndrome Obstructive sleep apnea (adult) (pediatric) Chronic obstructive pulmonary disease, unspecified COPD type (HCC) Chronic diastolic (congestive) heart failure (HCC) 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 Bilateral lower extremity edema Type 2 diabetes mellitus with stage 3 chronic kidney disease, without long-term current use of insulin, unspecified whether stage 3a or 3b CKD (HCC) Morbid (severe) obesity due to excess calories ([facility]) MGUS (monoclonal gammopathy of unknown significance) Monoclonal paraproteinemia Atherosclerosis of pokagon coronary artery of pokagon heart without angina pectoris Mixed hyperlipidemia Mixed hyperlipidemia 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 documented in this encounter [facility] N[facility]ative - Reported* Type Description Date Medical History diabetes mallitus Medical History HTN Surgical History knee replacement 2010 [employer] Other Reason for visit Narrative* Consultation (Routine) - Closed Specialty Diagnoses / Procedures Referred By Colby t Referred To Contact Dermatology Diagnoses Neoplasm of uncertain behavior Procedures [place] OFFICE/OUTPATIENT NEW HIGH MDM 60 MINUTES Teressa Sierra NP [address] [place] [address] Phone: tel: fax: Maribeth Yoo, FARM MACHINERY MECHANIC-LOOM INSPECTOR [address] [place] [address] Phone: tel: fax: Referral ID Status Reason Start Date Expiration Date V isits Requested Visits Authorized [id number] Closed Specialty Services Required 12/19/2024 06/17/2025 1 [...] section and content) DATE CREATED AUTHOR 09/01/2021 [facility] DATE CREATED AUTHOR AUTHOR'S ORGANIZ ATION 04/06/2022 [facility] DATE CREATED AUTHOR AUTHOR'S ORGANIZ ATION 11/04/2022 [facility] DATE CREATED AUTHOR AUTHOR'S ORGANIZ ATION 11/12/2023 [facility] DATE CREATED AUTHOR AUTHOR'S ORGANIZ ATION 03/04/2025 [facility] DATE CREATED AUTHOR AUTHOR'S ORGANIZ ATION 03/23/2025 [facility] EPIC REASON FOR VISIT (unrecogniz ed section and content) Reason Onset Date Comments Med Refill 06/13/2024 Reason Comments Med Refill Reason Comments Diabetes Reason Comments Medicare Annual Wellness Visit Initial Care Teams (unrecognized sec tion and content) Bed Maker Relationship Specialty Start Date End Date Mal Barnes MD [address] [place] [address] PCP - External PCP Family Medicine 04/24/23 Gilberto Stockton MD [address] [place] [address] PCP - Devoted 08/24/23 Gilberto Stockton MD [address] [place] [address] PCP - General Family Medicine 03/09/24 Teressa Sierra NP [address] [place] [address] Nurse Practitioner Family Medicine 09/09/23 Bed Maker Relationship Specialty Start Date End Date Mal Barnes MD [address] [place] [address] PCP - External PCP Family Medicine 04/24/23 Gilberto Stockton MD [address] [place] [address] PCP - Devoted 08/24/23 Gilberto Stockton MD [address] [place] [address] PCP - General Family Medicine 03/09/24 Teressa Sierra, CUAUHTEMOC [address] [place] [address] Nurse Practitioner Family Medicine 09/09/23 Bed Maker Relationship Specialty Start Date End Date Mal Barnes MD [address] [place] [address] PCP - External PCP Family Medicine 04/24/23 Gilberto Stockton MD [address] [place] [address] PCP - Devoted 08/24/23 Gilberto Stockton MD [address] [place] [address] PCP - General Family Medicine 03/09/24 Teressa Sierra NP [address] [place] [address] Nurse Practitioner Family Medicine 09/09/23 Bed Maker Relationship Specialty Start Date End Date Mal Barnes MD [address] [facility] [place] [address] PCP - External PCP Family Medicine 04/24/23 Gilberto Stockton MD [address] [place] [address] PCP - Devoted 08/24/23 Gilberto Stockton MD [address] [place] [address] PCP - General Family Medicine 03/09/24 Teressa Sierra, ORE ROASTER [address] [place] [address] Nurse Practitioner Family Medicine 09/09/23 Bed Maker Relationship Specialty Start Date End Date Mal Barnes MD [address] [facility] [place] [address] PCP - External PCP Family Medicine 04/24/23 Gilberto Stockton MD [address] [place] [address] PCP - Devoted 08/24/23 Gilberto Stockton MD [address] [place] [address] PCP - General Family Medicine 03/09/24 Teressa Sierra NP [address] [place] [address] Nurse Practitioner Family Medicine 09/09/23 Bed Maker Relationship Specialty Start Date End Date Mal Barnes MD [address] [facility] [place] [address] PCP - External PCP Family Medicine 04/24/23 Gilberto Stockton MD [address] [place] [address] PCP - Devoted 08/24/23 Gilberto Stockton MD [address] [place] [address] PCP - General Family Medicine 03/09/24 Teressa Sierra, CUAUHTEMOC [address] [place] [address] Nurse Practitioner Family Medicine 09/09/23 Bed Maker Relationship Specialty Start Date End Date Mal Barnes MD [address] [facility] [place] [address] PCP - External PCP Family Medicine 04/24/23 Gilberto Stockton MD [address] [place] [address] PCP - Devoted 08/24/23 08/23/24 Gilberto Stockton MD [address] [place] [address] PCP - General Family Medicine 03/09/24 Teressa Sierra NP [address] [place] [address] Nurse Practitioner Family Medicine 09/09/23 Bed Maker Relationship Specialty Start Date End Date Mal Barnes MD [address] [facility] [place] [address] PCP - External PCP Family Medicine 04/24/23 Gilberto Stockton MD [address] [place] [address] PCP - Devoted 08/24/23 08/23/24 Gilberto Stockton MD [address] [place] [address] PCP - General Family Medicine 03/09/24 Teressa Sierra NP [address] [place] [address] Nurse Practitioner Family Medicine 09/09/23 Bed Maker Relationship Specialty Start Date End Date Mal Barnes MD [address] [place] [address] PCP - External PCP Family Medicine 04/24/23 Gilberto Stockton MD [address] [place] [address] PCP - General Family Medicine 03/09/24 Teressa Sierra NP [address] [place] [address] Nurse Practitioner Family Medicine 09/09/23 Bed Maker Relationship Specialty Start Date End Date Mal Barnes MD [address] [place] [address] PCP - External PCP Family Medicine 04/24/23 Gilberto Stokcton MD [address] [place] [address] PCP - General Family Medicine 03/09/24 Teressa Sierra NP [address] [place] [address] Nurse Practitioner Family Medicine 09/09/23 Bed Maker Relationship Specialty Start Date End Date Mal Barnes MD [address] [place] [address] PCP - External PCP Family Medicine 04/24/23 Gilberto Stockton MD [address] [place] [address] PCP - General Family Medicine 03/09/24 Teressa Seirra NP [address] [place] [address] Nurse Practitioner Family Medicine 09/09/23 Bed Maker Relationship Specialty Start Date End Date Mal Barnes MD [address] [place] [address] PCP - External PCP Family Medicine 04/24/23 Gilberto Stockton MD [address] [place] [address] PCP - General Family Medicine 03/09/24 Teressa Sierra NP [address] [place] [address] Nurse Practitioner Family Medicine 09/09/23 Bed Maker Relationship Specialty Start Date End Date Mal Barnes MD [address] [place] [address] PCP - External PCP Family Medicine 04/24/23 Gilberto Stockton MD [address] [place] [address] PCP - General Family Medicine 03/09/24 Teressa Sierra, CUAUHTEMOC [address] [place] [address] Nurse Practitioner Family [facility] 09/09/23 Bed Maker Relationship Specialty Start Date End Date Mal Barnes MD [address] [facility] [place] [address] PCP - External PCP Family Medicine 04/24/23 Gilberto Stockton MD [address] [place] [address] PCP - General Family Medicine 03/09/24 Gilberto Stockton MD [address] [place] [address] PCP - Medical [facility] 08/24/2408/23 Teressa Sierra, CUAUHTEMOC [address] [place] [address] Nurse Practitioner Family [facility] 09/09/23 Bed Maker Relationship Specialty Start Date End Date Mal Barnes MD [address] [place] [facility] [place] [address] PCP - External PCP Family Medicine 04/24/23 Gilberto Stockton MD [address] [place] [address] PCP - General Family Medicine 03/09/24 Gilberto Stockton MD [address] [place] [address] PCP - Medical [place] 08/24/2408/23 Teressa Sierra NP [address] [place] [address] Nurse Practitioner Family Medicine 09/09/23 Bed Maker Relationship Specialty Start Date End Date Mal Barnes MD [address] [place] [address] PCP - External PCP Family Medicine 04/24/23 Gilberto Stockton MD [address] [place] [address] PCP - General Family Medicine 03/09/24 Gilberto Stockton MD [address] [place] [address] PCP - Medical [place] 08/24/2408/23 Teressa Sierra, CUAUHTEMOC [address] [place] [address] Nurse Practitioner Family Medicine 09/09/23 Bed Maker Relationship Specialty Start Date End Date Mal Barnes MD [address] [place] [address] PCP - External PCP Family Medicine 04/24/23 Gilberto Stockton MD [address] [place] [address] PCP - General Family Medicine 03/09/24 Gilberto Stockton MD [address] [place] [address] PCP - Medical [place] 08/24/2408/23 Teressa Sierra, CUAUHTEMOC [address] [place] [address] Nurse Practitioner Family Medicine 09/09/23 Bed Maker Relationship Specialty Start Date End Date Mal Barnes MD [address] [place] [address] PCP - External PCP Family Medicine 04/24/23 Gilberto Stockton MD [address] [place] [address] PCP - General Family Medicine 03/09/24 Gilberto Stockton MD [address] [place] [address] PCP - Medical [facility] 08/24/2408/23 Teressa Sierra, ORE ROASTER [address] [place] [address] Nurse Practitioner Family Medicine 09/09/23 Bed Maker Relationship Specialty Start Date End Date Mal Barnes MD [address] [place], [place] [address] PCP - External PCP Family Medicine 04/24/23 Gilberto Stockton MD [address] [place] [address] PCP - General Family Medicine 03/09/24 Gilberto Stockton MD [address] [place] [address] PCP - Medical [place] 08/24/2408/23 Teressa Sierra, ORE ROASTER [address] [place] [address] Nurse Practitioner Family Medicine 09/09/23 Bed Maker Relationship Specialty Start Date End Date Mal Barnes MD [address] [place], [place] [address] PCP - External PCP Family Medicine 04/24/23 Gilberto Stockton MD [address] [place] [address] PCP - General Family Medicine 03/09/24 Gilberto Stockton MD [address] [place] [address] PCP - Medical [place] 08/24/2408/23 Teressa Sierra, ORE ROASTER [address] [place] [address] Nurse Practitioner Family Medicine 09/09/23 Bed Maker Relationship Specialty Start Date End Date Mal Barnes MD PCP - External PCP Family Medicine 04/24/23 Gilberto Stockton MD [address] [place] [address] PCP - General Family Medicine 03/09/24 Gilberto Stockton MD [address] [place] [address] PCP - Medical [facility] 08/24/2408/23 Teressa Sierra, CUAUHTEMOC [address] [place] [address] Nurse Practitioner Family Medicine 09/09/23 Bed Maker Relationship Specialty Start Date End Date Mal Barnes MD PCP - External PCP Family Medicine 04/24/23 Gilberto Stockton MD [address] [place] [address] PCP - General Family Medicine 03/09/24 Gilberto Stockton MD [address] [place] [address] PCP - Medical [facility] 08/24/2408/23 Teressa Sierra NP [address] [place] [address] Nurse Practitioner Family Medicine 09/09/23 FOR RECORDS [...] BE BASED ON THE PRIMARY CLINICAL RECORDS. [facility]. provides no warranty or guarantee of the accuracy or completeness of information in this document.
== END 2025-05-02 09:47 | disposition home or self-care (01) ==
LOC: WC 09:47
PROVIDERS: PCP Nurse Practitioner; Visit Provider Physician Assistant
DX: I87.312 Chronic venous hypertension (idiopathic) with ulcer of left lower extremity (principal); L97.822 Non-pressure chronic ulcer of other part of left lower leg with fat layer exposed
CPT/HCPCS: G0463

== ENCOUNTER 2025-05-23 10:02 | Outpatient (OUT) | payer MEDICARE, SELFPAY ==
--- OUTSIDE RECORDS SUMMARY | 2025-03-21 14:36 | XMS_ITS ---
Author Name Auto Generated Organization OH[facility] Care Team Providers Care Space Operations Officer Name Role Phone CATINA SALAZAR Attending Unavailable CATINA SALAZAR Attending Unavailable AIDEN NEELY Attending Unavailable AIDEN NEELY Attending Unavailable ТАТЬЯНА TODD Attending Unavailable AIDEN NEELY Referring Unavailable ADARSH DUMONT Attending Unavailable AIDEN NEELY Attending Unavailable AIDEN NEELY Attending Unavailable PROBLEMS DATE TYPE CONDITION / CODE ATTENDING STATUS [facility] 01/23/2025 Admitting Diagnosis Chronic kidney disease, stage 3b / N18.32(ICD-10) CATINA SALAZAR [facility] 07/30/2022 Admitting Diagnosis Other pericardial effusion (noninflammatory) / I31.39(ICD-10) CATINA SALAZAR [facility] 05/03/2022 Admitting Diagnosis Essential (primary) hypertension / I10(ICD-10) CATINA SALAZAR [facility] 05/03/2022 Admitting Diagnosis Presence of aortocoronary bypass graft / Z95.1(ICD-10) CATINA SALAZAR [facility] 10/03/2024 Admitting Diagnosis Chronic diastolic (congestive) heart failure / I50.32(ICD-10) MARTIN CATINA Active [facility] 10/03/2024 Admitting Diagnosis Localized edema / R60.0(ICD-10) SAMMYNYDIA CATINA [facility] 10/03/2024 Admitting Diagnosis Atherosclerotic heart disease of [place] coronary artery without angina pectoris / I25.10(ICD-10) CATINA SALAZAR [facility] PROCEDURES No Procedure Records Found RESULTS 36 Observed: 02/28/2025 1:07 PM Status: COMPLETED Source: [facility] Regarding labs results and e cho from 02/21/2025: MD Katty Tan MA His echo and blood testing show stable cardiac and renal function. Continue same treatment and follow up in 6 months. Spoke with patient and informed him of result. He verbalized understanding. PROGRESS Observed: 01/23/2025 1:30 PM Status: COMPLETED Source: [facility] Cardiology - [facility] Subjective Arianne Mcqueen is a 79 y.o. year old male patient being seen for increase in lasix and blood work. Patient complains of GROVES, leg swelling and fatigue. Patient Active Problem List Diagnosis Multiple vessel coronary artery disease Cough Edema Hypertensive disorder History of coronary artery bypass surgery Nonsustained ventricular tachycardia ([facility]/HCC) Syncope and collapse Wound of sternal region Chronic diastolic congestive heart failure ([facility]/HCC) COVID-19 Hyperglycemia Metabolic syndrome MGUS (monoclonal gammopathy of unknown significance) Pericardial effusion Pneumonia, bacterial Solitary pulmonary nodule Arthritis of right hip Bilateral lower extremity edema Constipation COPD (chronic obstructive pulmonary disease) ([facility]) Encounter for subsequent annual wellness visit (AWV) in Medicare patient Hearing decreased Hypercholesterolemia Hyperpigmentation Iron deficiency Lymphedema Lymphorrhea Myocardial infarction (CMS/HCC) Nicotine dependence Osteoarthritis of both knees Papillomatosis Sleep apnea Morbid obesity (CMS/HCC) Venous stasis ulcer of right lower extremity (CMS/HCC) Wound cellulitis Diabetes mellitus, type II (CMS/HCC) MCFP (current) use of inhaled steroids Ulcer of lower extremity (CMS/HCC) Aortic ectasia, unspecified site Body mass index (BMI) 45.0-49.9, adult (CMS/[facility]) Chronic kidney disease, stage 3a (CMS/HCC) Type 2 diabetes mellitus with diabetic chronic kidney disease ([facility]/HCC) Type 2 diabetes mellitus with diabetic peripheral angiopathy without gangrene (CMS/HCC) 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 (CODE) ([facility]) Family History Problem Relation Name Age of Onset Coronary artery disease Mother Social History Tobacco Use Smoking status: Former Types: Cigarettes Smokeless tobacco: Never Substance Use Topics Alcohol use: Yes Comment: moderate Drug use: Never HPI Visit of 03/20/2021: Arianne is seen as a new patient. He is a 75-year-old man with history of hypertension and diabetes. He has longstanding lower extremity edema. In November 2020 he was sitting at a bar and developed epigastric pain and then lost consciousness. Developed syncope. He was resuscitated and admitted to the [facility]. His initial investigation was negative. He [...] In August 2021 he was admitted to [facility] and then transferred to [facility] due to COVID infection and large pericardial [...] he sees the wound clinic at the [facility]. He denies chest pain. Visit of 01/23/2025: He is seen in follow-up. At visit of 10/03/2024 I added furosemide 40 mg daily as he had stopped Jardiance due to cost. He was complaining of shortness of breath and lower extremity edema. He then was having worsening lower extremity edema and shortness of breath and scrotal swelling. Furosemide was increased to 40 mg twice a day. Today he reports that he continues to have shortness of breath on exertion NYHA class II symptoms and bilateral lower extremity edema. No chest pain. No palpitations. Review of Systems Constitutional: Positive for malaise/fatigue. HENT: Positive for hearing loss. Cardiovascular: Positive for dyspnea on exertion and leg swelling. Skin: Positive for poor wound healing. Musculoskeletal: Positive for joint pain. Objective Visit Vitals BP 124/82 (BP Location: Right arm, Patient Position: Sitting) Pulse 57 Ht 1.778 m (5' 10 ) Wt (!) 147 kg (325 lb) SpO2 94% BMI 46.63 kg/m??? Smoking Status Former BSA 2.69 m??? Physical Exam Constitutional: Appearance: He is [...] mouth in the morning., Disp: , Rfl: furosemide (Lasix) 40 mg tablet, Take 1 tablet (40 mg) by mouth in the morning. (Patient taking differently: Take 40 mg by mouth two times daily.), Disp: 90 tablet, Rfl: 3 glipiZIDE (Glucotrol) 5 mg tablet, Take 5 mg by mouth before breakfast and before evening meal., Disp: , Rfl: isosorbide mononitrate ER (Imdur) [...] 18, creatinine 1.3, EGFR 53, LFTs normal. Blood testing 12/30/2024: Potassium 4.1, BUN 29, creatinine 1.55, EGFR 43, NT proBNP 464. BMP 01/12/2025: Potassium 4.7, BUN 37, creatinine 1.59, EGFR 42. Imaging and other tests Stress test 03/17/2024: [...] visit: Chronic diastolic heart failure (CMS/HCC) - Transthoracic echo (TTE) complete; Future - Basic metabolic panel; Future Primary hypertension History of coronary artery bypass surgery Coronary artery disease involving new[place] coronary artery of new[place] heart without angina pectoris Pericardial effusion Comments: resolved Orders: - Transthoracic echo (TTE) complete; Future Stage 3b chronic kidney disease (CMS/[facility]) 1. CAD status post bypass surgery: His [...] daily. 2. Hypertension: His blood pressure is controlled. I will continue current medications. 3. Chronic diastolic heart failure: Continue spironolactone. he has stopped jardiance due to cost. Continue furosemide 40 mg twice daily. I will monitor renal function. I will check BMP in 2 weeks. I will check a follow-up echocardiogram to follow-up on ventricular function and right-sided pressures. 4. Pericardial effusion: In the setting of having COVID infection. His follow-up echocardiogram and April 2022 showed resolution of the pericardial effusion. Last echocardiogram in December 2023 showed no pericardial effusion. I will check a follow-up echocardiogram. If he continues to do well and response to the higher dose furosemide therapy, I will plan on seeing him in follow-up in 6-month. Follow up in about 6 months (around 07/25/2025). Catina Salazar MD OFFICE VISIT Observed: 01/23/2025 1:30 PM Status: COMPLETED Source: [facility] [id number] Arianne Mcqueen M Date Provider Department Center 01/23/2025 367-CATINA SALAZAR SHILPI Santiago Family History Problem Relation Age of Onset Coronary artery disease Mother Family Status - Relation Status Age at Mother Father Level of Service:12949 [place] OFFICE/OUTPATIENT ESTABLISHED MOD MDM 30 MIN ORDERS ONLY Observed: 01/12/2025 12:00 AM Status: COMPLETED Source: [facility] [id number] Arianne Mcqueen M Date Provider Department Center 01/12/2025 [id number], [facility] SHILPI Fossevsarahy Santiago Family History Problem Relation Age of Onset Coronary artery disease Mother Family Status - Relation Status Age at Mother 36 Observed: 01/02/2025 9:30 AM Status: COMPLETED Source: [facility] Spoke with Ladonna from [facility] and made her aware of furosemide increase. [...] Observed: 12/30/2024 9:40 AM Status: COMPLETED Source: [facility] Ladonna with [facility] called asking if patient's diuretics could be increased. She said he was at [facility] ED recently for scrotal edema. She [...] Observed: 10/03/2024 3:30 PM Status: COMPLETED Source: [facility] Cardiology - [facility] Subjective Arianne Mcqueen is a [...] coronary artery bypass surgery Nonsustained ventricular tachycardia ([facility]) Syncope and collapse Wound of sternal region Chronic diastolic congestive heart failure ([facility]) COVID-19 Hyperglycemia Metabolic syndrome MGUS (monoclonal gammopathy of unknown significance) Pericardial effusion Pneumonia, bacterial Solitary pulmonary nodule Arthritis of right hip Bilateral lower extremity edema Constipation COPD (chronic obstructive pulmonary disease) ([facility]) Encounter for subsequent annual wellness visit (AWV) in Medicare patient Hearing decreased Hypercholesterolemia Hyperpigmentation Iron deficiency Lymphedema Lymphorrhea Myocardial infarction ([facility]) Nicotine dependence Osteoarthritis of both knees Papillomatosis Sleep apnea Morbid obesity ([facility]) Venous stasis ulcer of right lower extremity ([facility]) Wound cellulitis Diabetes mellitus, type II ([facility]) MCFP (current) use of inhaled steroids Ulcer of lower extremity ([facility]) Aortic ectasia, unspecified site ([facility]) Body mass index (BMI) 45.0-49.9, adult ([facility]) Chronic kidney disease, stage 3a ([facility]) Type 2 diabetes mellitus with diabetic chronic kidney disease ([facility]) Type 2 diabetes mellitus with diabetic peripheral angiopathy without gangrene (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) Family History Problem Relation Name [...] He was resuscitated and admitted to the [facility]. His initial investigation was negative. He [...] In August 2021 he was admitted to [facility] and then transferred to [facility] due to COVID infection and large pericardial [...] he sees the wound clinic at the [facility]. He denies chest pain. Review of Systems [...] mL) pen injector, , Disp: , Rfl: Treleyakov Ellipta 100-62.5-25 mcg blister with device, , [...] artery bypass surgery Coronary artery disease involving [place] coronary artery of [place] heart without angina pectoris Pericardial effusion Comments: [...] Observed: 10/03/2024 3:30 PM Status: COMPLETED Source: [facility] [id number] Arianne Mcqueen M Date Provider Department [facility] Family History Problem Relation Age of Onset Coronary artery disease Mother Family Status - Relation Status Age at Mother Level of Service:12073 [place] OFFICE/OUTPATIENT ESTABLISHED MOD MDM 30 MIN ALLERGIES DATE TYPE / CODE NAME / CODE REACTION SEVERITY SOURCE SYSTEMIC/[id number]( SNOMED CT) NO KNOWN ALLERGIES [facility] ENCOUNTERS ADMIT/DISCHARGE ACCOUNT NUMBER ADMITTING ENCOUNTER CLASS LOCATION SOURCE 03/21/2025/ 5 [id number] Ambulatory Building:[facility] 02/08/2025/ 5 [id number] Ambulatory Building:[facility] 01/23/2025/ 5 [id number] Ambulatory Building:[facility] 12/28/2024/ 5 [id number] Ambulatory Building:[facility] 12/19/2024/ 5 [id number] Ambulatory Building:[facility] 10/03/2024/ 5 [id number] Ambulatory Building:[facility] 09/27/2024/ 5 [id number] Ambulatory Building:[facility] 06/01/2024/ 4 [id number] Ambulatory Building:[facility] PAYERS ENCOUNTER GUARANTOR PAYER SUBSCRIBER SOURCE 03/21/2025 ARIANNE NAVARRETEB: [address] [address]Ber: (HP) Primary Insurance:MEDICAL MUTUAL MEDICAREPolicy Number: [id number] Date:2024-08-24 ARIANNE NAVARRETEB: [id number] [address] [address] [facility] 02/08/2025 ARIANNE NAVARRETEB: [address] [address]Tba: () Primary Insurance:MEDICAL MUTUAL MEDICAREPolicy Number: [id number] Date:2024-08-24 ARIANNE NAVARRETEB: [id number] [address] [address] [facility] 01/23/2025 Primary Insurance:MEDICAL MUTUAL MEDICAREPolicy Number: [id number] Date:2024-08-24 ARIANNE NAVARRETEB: [id number] [address] [address] [facility] 12/28/2024 ARIANNE NAVARRETEB: [address] [address]Bdy: (HP) Primary Insurance:MEDICAL MUTUAL MEDICAREPolicy Number: [id number] Date:2024-08-24 ARIANNE NAVARRETEB: [id number] [address] [address] [facility] 12/19/2024 ARIANNE NAVARRETEB: [address] [address]Ugm: (HP) Primary Insurance:MEDICAL MUTUAL MEDICAREPolicy Number: [id number] Date:2024-08-24 ARIANNE BRADY: [id number] [place] [phone] [facility] EP[facility] 10/03/2024 Primary Insurance:MEDICAL MUTUAL MEDICAREPolicy Number: [id number] Date:2024-08-24 ARIANNE BRADY: [id number] [address] 09/27/2024 ARIANNE BRADY: [address]Tel: (HP) Primary Insurance:MEDICAL MUTUAL MEDICAREPolicy Number: [id number] Date:2024-08-24 ARIANNE NAVARRETEB: [id number] [place] [phone] [facility] EP[facility] 06/01/2024 ARIANNE NAVARRETEB: [place] [phone]: (HP) Primary Insurance:ECU HEALTHPolicy Number: [id number] Date:2023-08-24 ARIANNE BRADY: [id number] [place] [phone] [facility] EPIC
--- OUTSIDE RECORDS SUMMARY | 2025-05-23 10:05 | XMS_ITS | Encounter Summary ---
Author Organization [facility] Address [address] [place] [address] Care Team Providers Care Distillery Supervisor Name Role Phone House, Mal Bolden MD Unavailable [phone] Gilberto Stockton MD Unavailable Teressa Sierra NP Unavailable [phone] Gilberto Stockton MD Primary Care Provider [phone] Gilberto Stockton MD Unavailable Encounter Details Date Type Department Care Team (Late st Contact Info) Description 01/08/2024 Orders Only [facility] [address] [facility] [address] [place] [address] Marianne Hernandez MD [address] [place], [place] [id number] Social History Tobacco Use Types Packs/Day Years [...] How often do you attend chur or jewish services? Never 12/14/2023 Do you belong to any clubs o r organizations such as orthodoxy groups, unions, fraternal or athletic groups, or [...] Recorded Patient Health Questionnaire-2 Score 1 12/14/2023 [facility] - Occupational [...] Care Team (Late st Contact Info) Description 08/10/2025 1:00 PM EST Office Visit [facility] [address] [place] [address] Brenna Dangelo PA [address] [place] [address] documented as of this encounter Procedures Procedure [...] documented as of this encounter Care Teams Distillery Supervisor Relationship Specialty Start Date End Date Mal Perez MD PCP - External PCP Family Medicine 04/24/23 Gilberto Stockton MD [address] [place] [address] PCP - Devoted 08/24/23 08/23/24 Gilberto Stockton MD [address] [place] [address] PCP - General Family Medicine 03/09/24 Gilberto Stockton MD [address] [place] [address] PCP - Medical [facility] 08/24/2408/23 Teressa Sierra NP [address] [place] [address] Nurse Practitioner Family Medicine 09/09/23 documented as of this encounter
--- OUTSIDE RECORDS SUMMARY | 2025-05-23 10:05 | XMS_ITS | Encounter Summary ---
Author Organization [facility] Address [address] [place] [address] Care Team Providers Care Vehicle Dismantler Name Role Phone House, Mal Bolden MD Unavailable [phone] Teressa Sierra NP Unavailable [phone] Gilberto Stockton MD Primary Care Provider [phone] Gilberto Stockton MD Unavailable Encounter Details Date Type Department Care Team (Latest Contact Info) Description 01/03/2025 Results Follow-Up [facility] [address] [facility] [address] [place] [address] Brenna Dangelo PA [address] [facility] [address] [place] [address] Dermatopathology exam Social History Tobacco [...] How often do you attend chur or yarsani services? Never 12/14/2023 Do you belong to any clubs o r organizations such as christianity groups, unions, fraternal or athletic groups, or [...] Recorded Patient Health Questionnaire-2 Score 0 12/19/2024 [facility] - Occupational [...] Description 08/10/2025 1:00 PM EST Office Visit [facility] [address] [place] [address] Brenna Dangelo PA [address] [place] [address] documented as of this encounter Visit Diagnoses Not on filedocumented in this encounter Additional Health Concerns Assessment Noted Time PHQ-9 Depression Total Score: 2 12/20/19 25 5:02 PM EDT documented as of this encounter Care Teams Vehicle Dismantler Relationship Specialty Start Date End Date Mal Perez MD PCP - External PCP Family Medicine 04/24/23 Gilberto Stockton MD PCP - General Family Medicine 03/09/24 Gilberto Stockton MD [address] [place] [address] PCP - Medical [facility] 08/24/2408/23 Teressa Sierra NP Nurse Practitioner Family Medicine 09/09/23 documented as of this encounter
--- OUTSIDE RECORDS SUMMARY | 2025-05-23 10:05 | XMS_ITS | Encounter Summary ---
Author Organization [facility] Address [address] [place] [address] Care Team Providers Care Anatomy And Physiology Instructor Name Role Phone House, Mal Bolden MD Unavailable [phone] Gilberto Stockton MD Unavailable Teressa Sierra NP Unavailable Gilberto Stockton MD Primary Care Provider [phone] Gilberto Stockton MD Unavailable Encounter Details Date Type Department Care Team (Late st Contact Info) Description 09/07/2023 Abstract [facility] [address] [place] [address] Teressa Sierra, CUAUHTEMOC [address] [facility] [place] [address] Social History Tobacco Use Types Packs/Day Years [...] Not at all 09/09/2023 3:30 PM EST Gayla Ahmadi MA Feeling down, depressed, or hopeless Not at all 09/09/2023 3:30 PM EST Gayla Ahmadi MA Patient Health Questionnaire-2 Score 0 09/09/2023 3:30 PM EST Shae Ahmadi MA documented as of this encounter Plan of Treatment Upcoming Encounters Date Type Department Care Team (Late st Contact Info) Description 08/10/2025 1:00 PM EST Office Visit [facility] [address] [place] [address] Brenna Dangelo PA [address] [place] [address] documented as of this encounter Visit Diagnoses Not on filedocumented in this encounter Care Teams Anatomy And Physiology Instructor Relationship Specialty Start Date End Date Mal Perez MD PCP - External PCP Family Medicine 04/24/23 Gilberto Stockton MD [address] [place] [address] PCP - Devoted 08/24/23 08/23/24 Gilberto Stockton MD [address] [place] [address] PCP - General Family Medicine 03/09/24 Gilberto Stockton MD [address] [place] [address] PCP - Medical [facility] 08/24/2408/23 Teressa Sierra NP [address] [place] [address] Nurse Practitioner Family Medicine 09/09/23 documented as of this encounter
--- OUTSIDE RECORDS SUMMARY | 2025-05-23 10:05 | XMS_ITS | Encounter Summary ---
Author Organization [facility] Address [address] [place] [address] Care Team Providers Care Dispatch Specialist Name Role Phone House, Mal Bolden MD Unavailable [phone] Gilberto Stockton MD Unavailable Teressa Sierra NP Unavailable [phone] Gilberto Stockton MD Primary Care Provider [phone] Gilberto Stockton MD Unavailable Encounter Details Date [...] How often do you attend chur or mu-ism services? Never 12/14/2023 Do you belong to [...] Questionnaire-2 Score 1 12/14/2023 [facility] - Occupational Stress Questionnaire Answer Date [...] Dermatology [address] [place] [address] Brenna Dangelo PA [address] [place] [address] documented as of this encounter Procedures Procedure Name Priority Date/Time Associated Diagnosis Comments NM AMBERLY PERF SPECT REST STR 03/23/2024 2:57 PM EDT documented in this encounter Results * NM AMBERLY PERF SPECT REST STR (03/23/2024 2:57 PM EDT) Anatomical Region Laterality Modality Other 03/23/2024 2:57 PM EDT Narrative 03/23/2024 2:58 PM EDT [facility] [place] [id number] Nuclear Medicine Report Signed Patient: SHAN MCQUEEN MR#: [id number] : 1945 Acct:[id number] Age/Sex: 78 / M ADM Date: 03/17/24 Loc: [place] Attending Dr: ARIELLA GALLEGO APRN Ordering Physician: ARIELLA GALLEGO APRN Date of Service: 03/17/24 Procedure(s): NM amberly perf SPECT rest str Accession Number(s): [id number] cc: Teressa Sierra DYE JIG OPERATOR; ARIELLA GALLEGO APRN Patient Name: SHAN MCQUEEN MR#: [id number] : 1945 Exam Date: 03/17/2024 Ordering Doctor: ARIELLA GALLEGO CNP RADIOLOGY REPORT PROCEDURE: NM AMBERLY PERF SPECT REST STR COMPARISON: None. INDICATIONS: [...] STUDY: Good. PERFUSION DEFECT: LOCATION: Apical anterior. Tiller. SIZE: Small (1-2 segments). SEVERITY: Mild. TYPE: [...] Banks M.D. Signed By: 03/23/24 1458 DD/ 1457 TD/TT: Surgical Resident: Procedure Note Radiology, Radiologist, MD - 03/23/2024 [facility] [place] [id number] Nuclear Medicine Report Signed Patient: SHAN MCQUEEN AMR#: [id number] : 4Acct:[id number] Age/Sex: 78 / MADM Date: 03/17/24 Loc: [place] Attending Dr: ARIELLA GALLEGO APRN Ordering Physician: ARIELLA GALLEGO APRN Date of Service: 03/17/24 Procedure(s): NM amberly perf SPECT rest str Accession Number(s): [id number] cc: Teressa Sierra NP; ARIELLA GALLEGO APRN Patient Name: SHAN MCQUEEN MR#: [id number] : 1945 Exam Date: 03/17/2024 Ordering Doctor: ARIELLA GALLEGO CNP RADIOLOGY REPORT PROCEDURE: NM AMBERLY PERF SPECT REST STR COMPARISON: None. INDICATIONS: [...] STUDY: Good. PERFUSION DEFECT: LOCATION: Apical anterior. Tiller. SIZE: Small (1-2 segments). SEVERITY: Mild. TYPE: [...] M.D. Signed By:03/23/24 1458 DD/ 1457 TD/TT: Surgical Resident: us Generic External Data Provider [facility] Final Result documented in this encounter Visit Diagnoses Not on filedocumented in this encounter Additional Health Concerns Assessment Noted Time PHQ-9 Depression Total Score: 3 12/14/19 24 4:34 PM EDT documented as of this encounter Care Teams Dispatch Specialist Relationship Specialty Start Date End Date Mal Perez MD PCP - External PCP Family Medicine 04/24/23 Gilberto Stockton MD [address] [place] [address] PCP - Devoted 08/24/23 08/23/24 Gilberto Stockton MD [address] [place] [address] PCP - General Family Medicine 03/09/24 Gilberto Stockton MD [address] [place] [address] PCP - Medical [facility]3] 08/24/2408/23 Teressa Sierra NP [address] [place] [address] Nurse Practitioner Family Medicine 09/09/23 documented as of this encounter
--- OUTSIDE RECORDS SUMMARY | 2025-05-23 10:05 | XMS_ITS | Encounter Summary ---
Author Organization [facility] Address [address] [place] [address] Care Team Providers Care Veterinarian Assistant Name Role Phone House, Mal Bolden MD Unavailable [phone] Gilberto Stockton MD Unavailable Teressa Sierra NP Unavailable [phone] Gilberto Stockton MD Primary Care Provider [phone] Gilberto Stockton MD Unavailable Encounter Details Date [...] Office [facility] [address] [facility] [address] [address] [place] [address] Brenna Dangelo PA [address] [facility] [address] [place] [address] documented as of this encounter Procedures Procedure Name Priority Date/Time Associated Diagnosis Comments SEGMENTAL BLOOD PRESSURE 11/04/2023 3:13 PM EDT documented in this encounter Results * SEGMENTAL BLOOD PRESSURE (11/04/2023 3:13 PM EDT) Anatomical Region Laterality Modality Radiographic Aminta ging 11/04/2023 3:13 PM EDT Narrative 11/05/2023 7:02 [place] [address] Cardiology Report Signed Patient: SHAN MCQUEEN MR#: [id number] : 1945 Acct:[id number] Age/Sex: 78 / M ADM Date: 11/04/23 Loc: CARD Attending Dr: Wallace Henry D.P.M. Ordering Physician: Wallace Henry D.P.M. Date of Service: 11/04/23 Procedure(s): CA segmental UE or LE ANDI Accession Number(s): [id number] cc: Teressa Sierra SECONDARY EDUCATION PROFESSOR; Wallace Henry D.P.M. [facility] Test Date: 2023-11-04 Pat Name: SHAN MCQUEEN Department: Room: - Gender: Male Account Strategist: Genevieve Torres : 1945 Requested By: 2013 Order Number: [id number] Reading MD: NISHANT OSULLIVAN Interpretive Statements Biphasic [...] 11/05/23 0702 11/05/23 0702 DD/ 1513 TD/TT: Internet Assessor: Procedure Note Radiology, Radiologist, - 11/05/2023 [place] [address] Cardiology Report Signed Patient: SHAN MCQUEEN AMR#: [id number] : 1945cct:[id number] Age/Sex: 78 / MADM Date: 11/04/23 Loc: CARD Attending Dr: Wallace Henry D.P.M. Ordering Physician: Wallace Henry D.P.M. Date of Service: 11/04/23 Procedure(s): CA segmental UE or LE ANDI Accession Number(s): [id number] cc: Teressa Sierra NP; Wallace Henry D.P.M. [facility] Test Date: 2023-11-04 Pat Name: SHAN MCQUEEN Department: Room: - Gender: Male Account Strategist: Genevieve Torres : 1945 Requested By: 2013 Order Number: [id number] Reading MD: NISHANT OSULLIVAN Interpretive Statements Biphasic [...] By:11/05/23 0702 11/05/23 0702 DD/ 1513 TD/TT: Internet Assessor: us Generic External Data Provider IMG XR PROCEDURES Final Result documented in this encounter Visit Diagnoses Not on filedocumented in this encounter Care Teams Veterinarian Assistant Relationship Specialty Start Date End Date Mal Perez MD PCP - External PCP Family Medicine 04/24/23 Gilberto Stockton MD [address] [place] [address] PCP - Devoted 08/24/23 08/23/24 Gilberto Stockton MD [address] [place] [address] PCP - General Family Medicine 03/09/24 Gilberto Stockton MD [address] [place] [address] PCP - Medical [facility] 08/24/2408/23 Teressa Sierra NP [address] [place] [address] Nurse Practitioner Family Medicine 09/09/23 documented as of this encounter
--- OUTSIDE RECORDS SUMMARY | 2025-05-23 10:05 | XMS_ITS | Clinical Summary ---
Author Organization [employer] [facility] Address [id number] [address] [place] [address] Care Team Providers Care Wooden Frame Builder Name Role Phone Mal Perez DO Primary Care Provider [phone] Allergies No known active allergies Medications ferrous [...] Pericardial effusion 08/29/2021 COVID-19 08/29/2021 Atherosclerosis of [place] co ronary artery of [place] heart without angina pectoris 08/29/2021 Immunizations No [...] 2:06 AM 09/03/2021 8:28 PM Care Teams Wooden Frame Builder Relationship Specialty Start Date End Date Mal Perez DO PCP - General Family Medicine 08/24/21
--- OUTSIDE RECORDS SUMMARY | 2025-05-23 10:05 | XMS_ITS | Encounter Summary ---
Author Organization [facility] Address [address] [place] [address] Care Team Providers Care Program Support Assistant Name Role Phone House, Mal Bolden MD Unavailable [phone] Teressa Sierra NP Unavailable [phone] Gilberto Stockton MD Primary Care Provider [phone] Gilberto Stockton MD Unavailable Reason for Visit * Reason Comments Med Refill Encounter Details Date Type Department Care Team (Late st Contact Info) Description 03/14/2025 Refill [facility] [address] [place] [address] Teressa Sierra, MALT HOUSE SUPERVISOR [address] [place] [address] Type 2 diabetes mellitus without complication, without [...] often do you attend chur ch or adventism services? Never 12/14/2023 Do you belong to any clubs o r organizations such as religious groups, unions, fraternal or athletic groups, or [...] Recorded Patient Health Questionnaire-2 Score 0 12/19/2024 [facility] ional [facility] - [...] Dermatology [address] [place] [address] Brenna Dangelo PA [address] [place] [address] documented as of this encounter Visit Diagnoses Diagnosis Type 2 diabetes mellitus without complication, without long-term current use of insulin (HCC) Localized edema Edema documented in this encounter Additional Health Concerns Assessment Noted Time PHQ-9 Depression Total Score: 2 12/20/19 25 5:02 PM EDT documented as of this encounter Care Teams Program Support Assistant Relationship Specialty Start Date End Date Mal Perez MD PCP - External PCP Family Medicine 04/24/23 Gilberto Stockton MD PCP - General Family Medicine 03/09/24 Gilberto Stockton MD [address] [place] [address] PCP - Medical [place] [facility] 08/24/2408/23 Teressa Sierra NP Nurse Practitioner Family Medicine 09/09/23 documented as of this encounter
--- OUTSIDE RECORDS SUMMARY | 2025-05-23 10:05 | XMS_ITS | Encounter Summary ---
Author Organization [facility] Address [address] [place] [address], [address] [place] [address] Care Team Providers Care Associate Professor Of Education Name Role Phone Unavailable Primary Care Provider Unavailabl e Reason for Visit * Reason Comments Medication Refill Encounter Details Date Type Department Care Team (Late st Contact Info) Description 07/19/2021 [facility] [address] [place] [address] [place] [address] [facility] [place] [address] Medication Refill Social History Tobacco [...]
--- OUTSIDE RECORDS SUMMARY | 2025-05-23 10:05 | XMS_ITS | Patient Health Record ---
Author Organization [facility] Address [address] [place] [address] Care Team Providers Care Factorer Name Role Phone Teressa Sierra CNP Primary Care Provider Unavail able Wallace Mayers Unavailable [phone] Allergies No Known Allergies Reason For Referral [...] SOB Inhalation Q4H; Duration: 90 days Active Isosorbide Mononitrate ER 30 MG 1 tablet in the morning Orally Once a day Active FeroSul 325 (65 Fe) MG TAKE 1 TABLET BY MOUTH EVERY MORNING WITH a meal Oral; Duration: 72 Days Active Spironolactone 25 MG 1 tablet Orally Active Ozempic (0.25 or 0.5 MG/DOSE) 2 MG/3ML Subcutaneous; Duration: 56 Days Active Atorvastatin Calcium 40 MG [...] Problem Status W/U Status Risk Notes Problem Morbid obesity (disorder) (973664975) Morbid (severe) obesity due to excess calories (E66.01) Active confirmed Problem Chronic diastolic heart failure (984276926) Chronic diastolic (congestive) heart failure (I50.32) Active confirmed Problem Chronic non-pressure ulcer of calf extending to fat level (4504260106280057 1) Non-pressure chronic ulcer of other part of right lower leg with fat layer exposed (L97.812) Active confirmed Problem Chronic ulcer of skin of lower leg (disorder) (8738240451203548 4) Non-pressure chronic ulcer of other part of left lower leg 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.821) Active confirmed Problem Solitary pulmonary nodule (955950957) Solitary pulmonary nodule (R91.1) Active confirmed Problem Long-term current use of inhaled steroid (200363646) USP (current) use of inhaled steroids (Z79.51) Active confirmed Problem COPD - Chronic obstructive pulmonary disease (83417577) COPD (chronic obstructive pulmonary disease) (J44.9) Active confirmed Problem Obstructive sleep apnea syndrome (15597191) JOSUE (obstructive sleep apnea) (G47.33) Active confirmed Problem Benign essential hypertension (6631983) Benign essential hypertension (I10) Active confirmed Problem Ex-tobacco user (finding) (976900590) History of tobacco abuse (Z87.891) Active confirmed 1ppd x 28 years, quit 2020 Problem Acquired lymphedema (11638252) Acquired lymphedema (I89.0) Active confirmed Problem Stasis dermatitis co-occurrent with venous ulcer of right lower extremity due to chronic peripheral venous hypertension (702662818610090) 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) Active confirmed Problem Atherosclerotic heart disease of [place] coronary artery without angina pectoris (564548791900695) Coronary arteriosclerosis in [place] artery (I25.10) Active confirmed CABG 04/08/2021 : WILKINS > LAD, SVG > Diagonal Problem Stasis edema wit h ulcer of both lower extremities (I87.313) Active confirmed Problem Secondary pulmonary hypertension (15191016) Other secondary pulmonary hypertension (I27.29) Active confirmed RHC 04/03/2021 : RV 48/5, PA 46/11 (28), PCWP 11 Problem Chronic ulcer of calf (7582085973655) Non-pressure chronic ulcer of right calf with other specified severity (L97.218) Active confirmed Problem Ankle ulcer (706994098) Ischemic ulcer of right ankle, 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) Active confirmed Problem Skin ulcer of le ft pretibial region with fat layer exposed (L97.822) Active confirmed Problem History of COVID-19 (6830656961238136 05) History of COVID-19 (Z86.16) Active confirmed Problem Ankle ulcer (390877576) 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) Active confirmed Problem Pericardial effusion (015930507) Pericardial effusion (I31.39) Active confirmed Encounters Encounter Location Date Provider Diagnosis Pulmonary Medicine [place] [address] [place] [address] 06/02/2024 Wallace Mayers COPD (chronic obstructive pulmonary disease) J44.9 [facility] [place] [address] [place] [address] 02/07/2025 Wallace Mayers Assessments Encounter Date Diagnosis (ICD Code) Assessment Notes Treatment Notes Treatment Clinical Notes Section Notes 06/02/2024 COPD (chronic obstructive pulmonary disease) (ICD-10 - J44.9) Plan Of Treatment No Information Insurance Providers Payer Name Payer Address Payer Phone Subscriber Number Group Number Insured Name Patient Relationship to Insured Coverage Start Date Coverage End Date [facility] [address] [place] [phone] [id number] Shan Young Self - patient is the insured 4 4 O ADVANTAGE CHOICE MEDICARE HMO [address] [place] [phone] [id number] Shan Young Self - patient is the insured Medical (General) History Medical History History ICD Code Coronary arteriosclerosis in [place] holden ry I25.10 Chronic diastolic (congestive) heart [...]
--- OUTSIDE RECORDS SUMMARY | 2025-05-23 10:05 | XMS_ITS | Encounter Summary ---
Author Organization [facility] Address [address] [place] [address] Care Team Providers Care Fire Hydrant Mechanic Name Role Phone House, Mal Bolden MD Unavailable [phone] Gilberto Stockton MD Unavailable Teressa Sierra NP Unavailable [phone] Gilberto Stockton MD Primary Care Provider [phone] Gilberto Stockton MD Unavailable Encounter Details Date [...] How often do you attend chur or hinduism services? Never 12/14/2023 Do you belong to any clubs o r organizations such as hoahaoism groups, unions, fraternal or athletic groups, or [...] Recorded Patient Health Questionnaire-2 Score 1 12/14/2023 [facility] - Occupational Stress Questionnaire Answer Date [...] Dermatology [address] [place] [address] Brenna Dangelo PA [address] [place] [address] documented as of this encounter Procedures Procedure Name Priority Date/Time Associated Diagnosis Comments CA ECHO DOPPLER COMPLETE 01/07/2024 8:32 AM EDT documented in this encounter Results * CA ECHO DOPPLER COMPLETE (01/07/2024 8:32 AM EDT) Anatomical Region Laterality Modality Other 01/07/2024 8:32 AM EDT Narrative 01/07/2024 8:33 AM EDT The [address] [address] Cardiology Report Signed Patient: SHAN MCQUEEN MR#: [id number] : 1945 Acct:[id number] Age/Sex: 78 / M ADM Date: 01/05/24 Loc: CARD Attending Dr: ARIELLA GALLEGO APRN Ordering Physician: ARIELLA GALLEGO APRN Date of Service: 01/05/24 Procedure(s): CA echo doppler complete Accession Number(s): [id number] cc: Teressa Sierra ATHLETE MARKETING AGENT; ARIELLA GALLEGO APRN Patient Name: SHAN MCQUEEN MR#: [id number] : 1945 Exam Date: 01/05/2024 Ordering Doctor: ARIELLA GALLEGO VE TEACHER ECHOCARDIOGRAM REPORT PROCEDURE: CA ECHO DOPPLER COMPLETE INDICATIONS: Diastolic heart failure, dyspnea on exertion, CABG, AL, COPD, hypertension, diabetes COMPARISON: None. DESCRIPTION: COMPLETE [...] Pressure: 53.90 ml, 53.90 ml Dictated by: Hunter Hearn M.D. on 01/07/2024 at 08:23 Approved by: Hunter Hearn M.D. on 01/07/2024 at 08:32 Dictated By: HUNTER HEARN Signed By: 01/07/2433 DD/ 1 TD/TT: Artisan Plasterer: Procedure Note Radiology, Radiologist, - 01/07/2024 [place] [address] Cardiology Report Signed Patient: SHAN MCQUEEN AMR#: [id number] : 1945cct:[id number] Age/Sex: 78 / MADM Date: 01/05/24 Loc: CARD Attending Dr: ARIELLA GALLEGO APRN Ordering Physician: ARIELLA GALLEGO APRN Date of Service: 01/05/24 Procedure(s): CA echo doppler complete Accession Number(s): [id number] cc: Teressa Sierra ATHLETE MARKETING AGENT; ARIELLA GALLEGO APRN Patient Name: SHAN MCQUEEN MR#: [id number] : 1945 Exam Date: 01/05/2024 Ordering Doctor: ARIELLA GALLEGO VE TEACHER ECHOCARDIOGRAM REPORT PROCEDURE: CA ECHO DOPPLER COMPLETE INDICATIONS: Diastolic heart failure, dyspnea on exertion, CABG, AL,COPD, hypertension, diabetes COMPARISON: None. DESCRIPTION: COMPLETE ECHOCARDIOGRAM [...] Pressure: 53.90 ml, 53.90 ml Dictated by: Hunter Hearn M.D. on 01/07/2024 at 08:23 Approved by: Hunter Hearn M.D. on 01/07/2024 at 08:32 Dictated By: HUNTER HEARN Signed By:01/07/24 0833 DD/ 0832 TD/TT: Artisan Plasterer: us Generic External Data Provider [facility] Final Result documented in this encounter Visit Diagnoses Not on filedocumented in this encounter Additional Health Concerns Assessment Noted Time PHQ-9 Depression Total Score: 3 12/14/19 24 4:34 PM EDT documented as of this encounter Care Teams Fire Hydrant Mechanic Relationship Specialty Start Date End Date Mal Perez MD PCP - External PCP Family Medicine 04/24/23 Gilberto Stockton MD [address] [place] [address] PCP - [facility] 08/24/23 08/23/24 Gilberto Stockton MD [address] [place] [address] PCP - General Family Medicine 03/09/24 Gilberto Stockton MD [address] [place] [address] PCP - Medical [facility] 08/24/2408/23 Teressa Sierra NP [address] [place] [address] Nurse Practitioner Family Medicine 09/09/23 documented as of this encounter
--- OUTSIDE RECORDS SUMMARY | 2025-05-23 10:05 | XMS_ITS | Encounter Summary ---
Author Organization [facility] Address [address] [place] [address] Care Team Providers Care Cabin Service Agent Name Role Phone House, Mal Bolden MD Unavailable [phone] Teressa Sierra NP Unavailable [phone] Gilberto Stockton MD Primary Care Provider [phone] Gilberto Stockton MD Unavailable Encounter Details Date Type Department Care Team (Latest Contact Info) Description 02/13/2025 Results Follow-Up [facility] Derm[facility]ology [address] [facility] [address] [place] [address] Yadi Malik MD [address] [facility] [address] [place] [address] Dermatopathology exam Social History Tobacco [...] How often do you attend chur or sabianist services? Never 12/14/2023 Do you belong to [...] Recorded Patient Health Questionnaire-2 Score 0 12/19/2024 [facility] - Occupational Stress Questionnaire Answer Date [...] Dermatology [address] [place] [address] Brenna Dangelo PA [address] [place] [address] documented as of this encounter Visit Diagnoses Not on filedocumented in this encounter Additional Health Concerns Assessment Noted Time PHQ-9 Depression Total Score: 2 12/20/19 25 5:02 PM EDT documented as of this encounter Care Teams Cabin Service Agent Relationship Specialty Start Date End Date Mal Perez MD PCP - External PCP Family Medicine 04/24/23 Gilberto Stockton MD PCP - General Family Medicine 03/09/24 Gilberto Stockton MD [address] [place] [address] PCP - Medical [facility] 08/24/2408/23 Teressa Sierra NP Nurse Practitioner Family Medicine 09/09/23 documented as of this encounter
--- OUTSIDE RECORDS SUMMARY | 2025-05-23 10:05 | XMS_ITS | Encounter Summary ---
Author Organization [facility] Address [address] [facility] [place] [address] Care Team Providers Care Assistant Professor Of Music Name Role Phone House, Mal Bolden MD Unavailable Gilberto Stockton MD Unavailable Teressa Sierra DENTAL THERAPIST Unavailable [phone] Gilberto Stockton MD Primary Care Provider Gilberto Stockton MD Unavailable Encounter Details Date Type Department Care Team (Late st Contact Info) Description 11/05/2023 Orders Only [facility] [address] [place] [address] Teressa Sierra, DENTAL THERAPIST [address] [place] [address] Social History Tobacco Use Types Packs/Day Years [...] Office Visit [facility] [address] [facility] [address] [place] [address] Brenna Dangelo PA [address] [place] [address] documented as of this encounter Procedures Procedure Name Priority Date/Time Associated Diagnosis Comments ECHO TRANSTHORACIC W/ DOPPLER Routine 11/04/2023 8:14 AM EDT documented in this encounter Results * ECHO TRANSTHORACIC W/ DOPPLER (11/04/2023 8:14 AM EDT) Anatomical Region Laterality Modality Radiographic Aminta ging us Teressa Sierra DENTAL THERAPIST IMG XR PROCEDURES Final Result documented in this encounter Visit Diagnoses Not on filedocumented in this encounter Care Teams Assistant Professor Of Music Relationship Specialty Start Date End Date Mal Perez MD PCP - External PCP Family Medicine 04/24/23 Gilberto Stockton MD [address] [place] [address] PCP - [facility] 08/24/23 08/23/24 Gilberto Stockton MD [address] [place] [address] PCP - General Family Medicine 03/09/24 Gilberto Stockton MD [address] [place] [address] PCP - Medical [facility] 08/24/2408/23 Teressa Sierra NP [address] [place] [address] Nurse Practitioner Family Medicine 09/09/23 documented as of this encounter
--- OUTSIDE RECORDS SUMMARY | 2025-05-23 10:05 | XMS_ITS | Clinical Summary ---
Author Organization [facility] Address [address] [place] [address], [address] [place] [address] Care Team Providers Care Cylinder Dyer Name Role Phone Unavailable Primary Care Provider Unavailabl e Social History Tobacco Use Types Packs/Day Years Used Date Smoking Tobacco: Never Assessed Sex and Gender Information Value Date Recorded Sex Assigned at Not on file Legal Sex Male 7:40 PM EDT Gender Identity Not on file Sexual Orientation Not on file Plan of Treatment Not on file Insurance [facility] [employer]
--- OUTSIDE RECORDS SUMMARY | 2025-05-23 10:05 | XMS_ITS | Encounter Summary ---
Author Organization [facility] Address [address] [facility] [place] [address] Care Team Providers Care Photographic Editor Name Role Phone House, Mal Bolden MD Unavailable [phone] Gilberto Stockton MD Unavailable Teressa Sierra NP Unavailable [phone] Gilberto Stockton MD Primary Care Provider [phone] Gilberto Stockton MD Unavailable Reason for Visit * Reason Comments Med Refill Encounter Details Date Type Department Care Team (Late st Contact Info) Description 12/24/2023 Refill [facility] [address] [facility] [place] [address] Teressa Sierra, INTERSTATE BUS DRIVER [address] [facility] [place] [address] Social History Tobacco Use Types Packs/Day Years [...] How often do you attend chur or episcopal services? Never 12/14/2023 Do you belong to any clubs o r organizations such as zoroastrian groups, unions, fraternal or athletic groups, or [...] Questionnaire-2 Score 1 12/14/2023 [employer] [facility] - Occupational Stress [...] Description 08/10/2025 1:00 PM EST Office Visit [facility] [address] [place] [address] Brenna Dangelo PA [address] [place] [address] documented as of this encounter Visit Diagnoses Not on filedocumented in this encounter Additional Health Concerns Assessment Noted Time PHQ-9 Depression Total Score: 3 12/14/19 24 4:34 PM EDT documented as of this encounter Care Teams Photographic Editor Relationship Specialty Start Date End Date Mal Perez MD PCP - External PCP Family Medicine 04/24/23 Gilberto Stockton MD [address] [place] [address] PCP - Devoted 08/24/23 08/23/24 Gilberto Stockton MD [address] [place] [address] PCP - General Family Medicine 03/09/24 Gilberto Stockton MD [address] [place] [address] PCP - Medical [facility] 08/24/2408/23 Teressa Sierra NP [address] [place] [address] Nurse Practitioner Family Medicine 09/09/23 documented as of this encounter
--- OUTSIDE RECORDS SUMMARY | 2025-05-23 10:05 | XMS_ITS | Encounter Summary ---
Author Organization [facility] Address [address] [place] [address] Care Team Providers Care Process Planner Name Role Phone House, Mal Bolden MD Unavailable Gilberto Stockton MD Unavailable Teressa Sierra NP Unavailable [phone] Gilberto Stockton MD Primary Care Provider [phone] Gilberto Stockton MD Unavailable Encounter Details Date Type Department Care Team (Late st Contact Info) Description 03/18/2023 [facility] [address] [phone] London Alcantara MD [address] [facility] [address] [place] [address] Social History Tobacco Use Types [...] Office Visit [facility] [address] [facility] [address] [place] [address] Brenna Dangelo PA [address] [place] [address] documented as of this encounter Visit Diagnoses Not on filedocumented in this encounter Care Teams Process Planner Relationship Specialty Start Date End Date Mal Perez MD PCP - External PCP Family Medicine 04/24/23 Gilberto Stockton MD [address] [place] [address] PCP - Devoted 08/24/23 08/23/24 Gilberto Stockton MD [address] [place] [address] PCP - General Family Medicine 03/09/24 Gilberto Stockton MD [address] [place] [address] PCP - Medical [facility] 08/24/2408/23 Teressa Sierra NP [address] [place] [address] Nurse Practitioner Family Medicine 09/09/23 documented as of this encounter
--- OUTSIDE RECORDS SUMMARY | 2025-05-23 10:05 | XMS_ITS | Clinical Summary ---
Author Organization [facility] Address [address] [place] [address] Care Team Providers Care Gas Tester Name Role Phone House, Mal Bolden MD Unavailable [phone] Teressa Sierra NP Unavailable [phone] Gilberto Stockton MD Primary Care Provider [phone] Gilberto Stockton MD Unavailable Allergies No known [...] 40 mg by mouth Daily 5 Active glipiZIDE (Glucotrol) 5 MG tabletIndications: Type 2 diabetes mellitus without complication, without long-term current use of insulin (HCC) Take 0.5 tablets (2.5 mg) by mouth Daily 45 tablet 1 5 06/13/20 25 Active spironolactone (Aldactone) 25 MG tabletIndications: Localized edema Take 0.5 tablets (12.5 mg) by mouth Daily 45 tablet 1 5 06/13/20 25 Active atorvastatin (Lipitor) 40 MG tabletIndications: 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 ge[place] heart without angina pectoris,Atheroscl erosis of [place] coronary artery of [place] 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 Take with meals. 180 tablet 1 06/19/20 25 Active Fluticasone-Umecli din-Vilant (Trelegy Ellipta) 100-62.5-25 MCG/ACT aerosol powderIndications: Chronic obstructive pulmonary disease, unspecified COPD type ([facility]) 1 puff by Other route Daily Rinse mouth after use 60 each 3 5 Active Active Problems Problem Noted Date [...] Plan (09/27/2024 4:23 PM EST): He has [facility] Nurse comes out few times per week for dressing changes Also sees Giselle Drew at [facility] for mgmt of wound Type 2 [...] at this time Encounter for subsequent [facility]ris [facility] wellness visit (AWV) in Medicare patient [...] in a year I did contact the [facility] Sleep lab ext [phone] to find [...] in a year I did contact the [facility] Sleep lab ext [phone] to find out about scheduling the patient to see about an updated PAP machine: voicemail left at 16:20 on 09/27/24 Assessment & Plan (06/01/2024 4:58 PM EDT): Non compliant with PAP use, machine is broke , difficulty finding DME who takes his insurance I did leave a VM on Sleep lab [facility] regarding this for them to assist Assessment & Plan (12/14/2023 5:30 PM EDT): Follow with [facility] Sleep [...] Plan (03/21/2025 7:14 AM EDT): Continue with [facility] Vein and Body Assessment & Plan (09/09/2023 4:09 PM EST): Continue with [facility] Vein and Body Myocardial infarction 09/08/2023 [...] MELLITUS WITH DIABETIC CHRONIC KIDNEY DISEASE (HCC) ([facility]/HCC) WRITTEN ON 03/14/2024 7:17 PM BY TERESSA [...] Plan (03/21/2025 7:19 AM EDT): Follows with [facility] Current meds: asa, statin, b fitz, imdur, aldactone, amlodipine ECHO 02/21/25: EF 74%, bilat atrial enlargement: right mild, left mod. No acute valve issues, mild elevated right sided pressures at 39 Assessment & Plan (09/27/2024 7:12 AM EST): Follows with [facility] Current meds: asa, statin, b fitz, imdur, aldactone, amlodipine Assessment & Plan (12/14/2023 5:32 PM EDT): Continue with cardiology Not able to afford the jardiance script Pericardial effusion ([facility]-HCC) 08/29/[address] [place]orge co ronary artery of [place] george heart without angina pectoris 08/29/2021 Assessment & Plan (09/27/2024 7:11 AM EST): Current meds: asa, statin, b fitz, imdur, aldactone, Cardiology: [facility] Banner Cough 07/03/2021 Other ventricular tachycardia 07/03/2021 Assessment [...] 03/21/2025 3:00 PM EDT Office Visit 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 ge[place] coronary artery of [place] george heart without angina pectoris ; Mixed hyperlipidemia ; Atherosclerotic heart disease of [place] coronary artery without angina pectoris 03/21/2025 Bamboo flowsheet [facility] [address] [place] [address] Teressa Sierra NP 03/14/[address] [facility] [address] [place] [address] Teressa Sierra NP Type 2 diabetes mellitus without complication, without long-term current use of insulin ([facility]); Localized edema 02/21/2025 Clinisync Result [...] often do you attend chur ch or confucianism services? Never 12/14/2023 Do you belong to any clubs o r organizations such as nondenominational groups, unions, fraternal or athletic groups, or [...] Score 0 12/19/2024 [facility] - Occupational Stress Questionnaire Answer Date [...] kg (327 lb 3.2 oz) 03/21/2025 3:10 P M EDT Height 179.1 cm (5' 10.5 ) 09/27/2024 2:06 PM ES T Body Mass Index 46.28 09/27/2024 2:06 PM EST Plan of Treatment Upcoming Encounters Date Type Department Care Team (Late st Contact Info) Description 08/10/2025 1:00 PM EST Office [facility] [address] [place] [address] Brenna Dangelo PA [address] [place] [address] Health Maintenance Due Date Last Done Comments [...] 3b CKD (HCC) CA ECHO DOPPLER COMPLETE 02/21/2025 2:40 PM EDT ALL BASIC METABOLIC PANEL Routine 02/21/2025 12:26 PM EDT from Last 3 Months Results * [...] EDT Narrative 02/21/2025 2:41 [place] [address] Cardiology Report Signed Patient: ARIANNE MCQUEEN MR#: [id number] : 1945 Acct:[id number] Age/Sex: 79 / M ADM Date: 02/21/25 Loc: CARD Attending Dr: CATINA SALAZAR Ordering Physician: CATINA SALAZAR Date of Service: 02/21/25 Procedure(s): CA echo doppler complete Accession Number(s): [id number] cc: Teressa Sierra NP; CATINA SALAZAR Patient Name: ARIANNE MCQUEEN MR#: [id number] : 1945 Exam Date: 02/21/2025 Ordering Doctor: DR CATINA SALAZAR M.D. ECHOCARDIOGRAM REPORT PROCEDURE: CA ECHO DOPPLER COMPLETE INDICATIONS: Chronic diastolic heart failure, h/o pericardial effusion, CABG, CA, COPD, hypertension, diabetes COMPARISON: None. DESCRIPTION: COMPLETE [...] Area (VTI): 4.57 cm2, 4.57 cm2 Deceleration Owen: Pressure Half-Time: Peak Velocity(Antegrade Flow): 0.89 m/s [...] Walls M.D. Signed By: 02/21/25 144 DD/ 144 TD/TT: Ink Maker: Procedure Note Radiology, Radiologist, MD - 02/21/2025 [place] [address] Cardiology Report Signed Patient: ARIANNE MCQUEEN AMR#: [id number] : 1945cct:[id number] Age/Sex: 79 / MADM Date: 02/21/25 Loc: CARD Attending Dr: CATINA SALAZAR Ordering Physician: CATINA SALAZAR Date of Service: 02/21/25 Procedure(s): CA echo doppler complete Accession Number(s): [id number] cc: Teressa Sierra AEROSPACE PHYSIOLOGICAL TECHNICIAN; CATINA SALAZAR Patient Name: ARIANNE MCQUEEN MR#: [id number] : 1945 Exam Date: 02/21/2025 Ordering Doctor: DR CATINA SALAZAR M.D. ECHOCARDIOGRAM REPORT PROCEDURE: CA ECHO DOPPLER COMPLETE INDICATIONS: Chronic diastolic heart failure, h/o pericardialeffusion, CABG, CA, COPD, hypertension, diabetes COMPARISON: None. DESCRIPTION: COMPLETE [...] Area (VTI): 4.57 cm2, 4.57 cm2 Deceleration Owen: Pressure Half-Time: Peak Velocity(Antegrade Flow): 0.89 m/s [...] M.D. Signed By:02/21/25 1441 DD/ 1440 TD/TT: Ink Maker: [facility] External Data Provider [facility] Final Result [...] 0.70 - 1.30 mg/dL [facility] EGFR-AF [facility] 47(L) >=60 mL/min/1.7 3m 2 [facility] EGFR-NON AF [facility] 39(L) >=60 mL/min/1.7 3m 2 [facility] BUN CREATININE RATIO 22.9 [facility] CALCIUM 8.9 8.5 - 10.1 mg/dL [facility] 02/21/2025 12:2 6 PM EDT 02/21/2025 12:33 PM EDT Narrative [facility] - 02/21/2025 1:31 PM EDT us Generic External Data Provider [facility] F inal Result [facility] TB from Last 3 Months Insurance [employer]IC[employer] Care Teams Gas Tester Relationship Specialty Start Date End Date Mal Perez MD PCP - External PCP Family Medicine 04/24/23 Gliberto Stockton MD PCP - General Family Medicine 03/09/24 Gilberto Stockton MD [address] [place] [address] PCP - Medical [place] 08/24/2408/23 Teressa Sierra NP Nurse Practitioner Family Medicine 09/09/23
--- OUTSIDE RECORDS SUMMARY | 2025-05-23 10:05 | XMS_ITS | Encounter Summary ---
Author Organization [facility] Address [address] [place] [address] Care Team Providers Care Victim Advocate Name Role Phone House, Mal Bolden MD Unavailable Gilberto Stockton MD Unavailable Teressa Sierra NP Unavailable [phone] Gilberto Stockton MD Primary Care Provider Gilberto Stockton MD Unavailable Encounter Details Date Type Department Care Team (Late st Contact Info) Description 03/04/2023 [facility] [address] [phone] London Alcantara MD [address] [facility] [address] [place] [address] Social History Tobacco Use Types [...] Office Visit [facility] [address] [facility] [address] [place] [address] Brenna Dangelo PA [address] [place] [address] documented as of this encounter Visit Diagnoses Not on filedocumented in this encounter Care Teams Victim Advocate Relationship Specialty Start Date End Date Mal Perez MD PCP - External PCP Family Medicine 04/24/23 Gilberto Stockton MD [address] [place] [address] PCP - Devoted 08/24/23 08/23/24 Gilberto Stockton MD [address] [place] [address] PCP - General Family Medicine 03/09/24 Gilberto Stockton MD [address] [place] [address] PCP - Medical [facility] 08/24/2408/23 Teressa Sierra NP [address] [place] [address] Nurse Practitioner Family Medicine 09/09/23 documented as of this encounter
--- OUTSIDE RECORDS SUMMARY | 2025-05-23 10:05 | XMS_ITS | Encounter Summary ---
Author Organization [employer] [facility] [employer] Address [id number] [address] [place] [address] Care Team Providers Care Medicaid Service Coordinator Name Role Phone Mal Perez DO Primary Care Provider [phone] Encounter Details Date Type Department Care Team (Late st Contact Info) Description 08/29/2021 Orders Only [facility] [employer] [address] [place] [phone] Transcribe, Orders Support User Pain (Primary [...] documented as of this encounter Care Teams Medicaid Service Coordinator Relationship Specialty Start Date End Date Mal Perez DO PCP - General Family Medicine 08/24/21 documented as of this encounter
--- OUTSIDE RECORDS SUMMARY | 2025-05-23 10:05 | XMS_ITS | Encounter Summary ---
Author Organization [facility] Address [address] [place] [address] Care Team Providers Care Open Winder Name Role Phone House, Mal Bolden MD Unavailable [phone] Gilberto Stockton MD Unavailable Teressa Sierra NP Unavailable [phone] Gilberto Stockton MD Primary Care Provider Gilberto Stockton MD Unavailable Encounter Details Date Type Department Care Team (Late st Contact Info) Description 02/19/2023 Abstract [facility] [address] [phone] London Alcantara MD [address] [facility] [address] [place] [address] Social History Tobacco Use Types [...] Office Visit [facility] [address] [facility] [address] [place] [address] Brenna Dangelo PA [address] [place] [address] documented as of this encounter Visit Diagnoses Not on filedocumented in this encounter Care Teams Open Winder Relationship Specialty Start Date End Date Mal Perez MD PCP - External PCP Family Medicine 04/24/23 Gilberto Stockton MD [address] [place] [address] PCP - Devoted 08/24/23 08/23/24 Gilberto Stockton MD [address] [place] [address] PCP - General Family Medicine 03/09/24 Gilberto Stockton MD [address] [place] [address] PCP - Medical [facility] 08/24/2408/23 Teressa Sierra NP [address] [place] [address] Nurse Practitioner Family Medicine 09/09/23 documented as of this encounter
== END 2025-05-23 10:03 | disposition home or self-care (01) ==
LOC: WC 10:03
PROVIDERS: PCP Nurse Practitioner; Visit Provider Physician Assistant
DX: I87.312 Chronic venous hypertension (idiopathic) with ulcer of left lower extremity (principal); L97.822 Non-pressure chronic ulcer of other part of left lower leg with fat layer exposed
CPT/HCPCS: G0463

== ENCOUNTER 2025-05-23 10:28 | Inpatient (IN) | payer MEDICARE, SELFPAY ==
--- OUTSIDE RECORDS SUMMARY | 2025-02-07 06:30 | XMS_ITS ---
Author Organization The [facility] in [place] Address [address] [place] [address] Care Team Providers Care Print Developer Name Role Phone Teressa Sierra CNP Primary Care Provider Unavail able Wallace Mayers Unavailable [phone] Allergies No Known Allergies REASON FOR VISIT 1y COPD Medications Medication SIG (Take, Route, Frequency, Duration) Notes Start Date End Date Status Trelegy Ellipta 100-62.5-25 MCG/ACT 1 puff Inhalation QD; Duration: 90 days Rinse after use Rinse after use 06/22/2023 Active Isosorbide Mononitrate ER 30 MG 1 tablet in the morning Orally Once a day Active FeroSul 325 (65 Fe) MG TAKE 1 TABLET BY MOUTH EVERY MORNING WITH a meal Oral; Duration: 72 Days Active Spironolactone 25 MG 1 tablet Orally Active Ozempic (0.25 or 0.5 MG/DOSE) 2 MG/3ML Subcutaneous; Duration: 56 Days Active Aspirin 81 81 MG 1 tablet Orally Once a day Active Albuterol Sulfate HFA 108 (90 Base) MCG/ACT 2 puffs as needed for SOB Inhalation Q4H; Duration: 90 days Active Atorvastatin Calcium 40 MG [...] Encounter Location Date Provider Diagnosis [facility] [place] [address] [place] [address] 02/07/2025 Wallace Diaz Plan Of Treatment No Information Procedure Notes * Category Sub-Category Detail Notes PFT Data: 04/05/2021 - [facility] -FEV1/FVC: 68%-FEV1: 76%-FVC: 80%-No bronchodilator administered-RV: 151%-T%-DLCO: 58%-Flow-volume loop: Moderate obstruction Alpha-1 Antitrypsin Screening Date: 02/12/2023 Genotype: MM Progress Notes * Shan MCQUEEN ADOB:[birth year] (80 yo M)Acc No.[id number]:02/07/2025 UNLOCKED PROGRESS NOTE Follow Up Patient: Shan TELLEZ Provider: Bobby Mayers DO :1945 A ge:79 Y S ex:Male Date:02/07/2025 Address:[address] [place] [address], [facility] Pcp:Teressa Sierra, WEB MERCHANDISER Subjective: * Chief Complaints: * 1 . 1y COPD. 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 D rugs/Alcohol: D [...] food Orally Twice a day , Taking CeleBREX 200 MG Capsule 1 capsule with food [...] Tablet 1 tablet Orally , Taking Trelegy Ellipta(Kgwoiephzkj-Mglzvsuns-Ltoplc) 100-62.5-25 MCG/ACT Aerosol Powder Breath Activated 1 puff Inhalation QD Rinse after use, Notes to Pharmacist: Rinse after use * Allergies: N .K.D.A. Objective: * Vitals: Assessment: Plan: * Treatment: * Procedures: A lpha-1 Antitrypsin: Screening Date: . Genotype: Yenny Bolden FT: Data: 04/05/2021 - [facility] -FEV1/FVC: 68% -FEV1: 76% -FVC: 80% -No [...] Reason: D rug declined by patient B PR ACTION PLAN Above Normal BMI Follow-up D ietary management education, guidance, and counseling * * Electronic signature of Oneida Mayers DO on 05/23/2025 at 11:23 AM EDT Sign off status: Pending Visit Status: N /S N/C (No Show/No Charge) * Provider: Bobby Mayers DO Date: 0 02/07/2025 Generated for Viki segundo/Josué/Carlos Aitting on: 0 05/23/2025 11:23 AM EDT
--- OUTSIDE RECORDS SUMMARY | 2025-03-21 14:36 | XMS_ITS ---
Author Name Auto Generated Organization [facility] Care Team Providers Care Engraver Tender Name Role Phone AIDEN NEELY Attending Unavailable AIDEN NEELY Attending Unavailable ТАТЬЯНА TODD Attending Unavailable AIDEN NEELY Referring Unavailable ADARSH DUMONT Attending Unavailable AIDEN NEELY Attending Unavailable AIDEN NEELY Attending Unavailable CATINA SALAZAR Attending Unavailable CATINA SALAZAR Attending Unavailable PROBLEMS DATE TYPE CONDITION / CODE ATTENDING STATUS [facility] 01/23/2025 Admitting Diagnosis Chronic kidney disease, stage 3b / N18.32(ICD-10) CATINA SALAZAR [facility] 07/30/2022 Admitting Diagnosis Other pericardial effusion (noninflammatory) / I31.39(ICD-10) CATINA SALAZAR [facility] 05/03/2022 Admitting Diagnosis Essential (primary) hypertension / I10(ICD-10) CATINA SALAZAR [facility] 05/03/2022 Admitting Diagnosis Presence of aortocoronary bypass graft / Z95.1(ICD-10) CATINA SALAZAR [facility] 10/03/2024 Admitting Diagnosis Chronic diastolic (congestive) heart failure / I50.32(ICD-10) MARTIN CATINA [facility] 10/03/2024 Admitting Diagnosis Localized edema / R60.0(ICD-10) SAMMYNYDIA CATINA [facility] 10/03/2024 Admitting Diagnosis Atherosclerotic heart disease of [place] coronary artery without angina pectoris / I25.10(ICD-10) CATINA SALAZAR [facility] PROCEDURES No Procedure Records Found RESULTS 36 Observed: 02/28/2025 1:07 PM Status: COMPLETED Source: [facility] Regarding labs results and e cho from 02/21/2025: MD Katty Tan MA His echo and blood testing show stable cardiac and renal function. Continue same treatment and follow up in 6 months. Spoke with patient and informed him of result. He verbalized understanding. PROGRESS Observed: 01/23/2025 1:30 PM Status: COMPLETED Source: [facility] Cardiology - [facility] Subjective Arianne cMqueen is a 79 y.o. year old male patient being seen for increase in lasix and blood work. Patient complains of GROVES, leg swelling and fatigue. Patient Active Problem List Diagnosis Multiple vessel coronary artery disease Cough Edema Hypertensive disorder History of coronary artery bypass surgery Nonsustained ventricular tachycardia ([facility]/HCC) Syncope and collapse Wound of sternal region Chronic diastolic congestive heart failure ([facility]/HCC) COVID-19 Hyperglycemia Metabolic syndrome MGUS (monoclonal gammopathy of unknown significance) Pericardial effusion Pneumonia, bacterial Solitary pulmonary nodule Arthritis of right hip Bilateral lower extremity edema Constipation COPD (chronic obstructive pulmonary disease) ([facility]) Encounter for subsequent annual wellness visit (AWV) in Medicare patient Hearing decreased Hypercholesterolemia Hyperpigmentation Iron deficiency Lymphedema Lymphorrhea Myocardial infarction (CMS/HCC) Nicotine dependence Osteoarthritis of both knees Papillomatosis Sleep apnea Morbid obesity (CMS/HCC) Venous stasis ulcer of right lower extremity (CMS/HCC) Wound cellulitis Diabetes mellitus, type II (CMS/HCC) half-way (current) use of inhaled steroids Ulcer of lower extremity (CMS/HCC) Aortic ectasia, unspecified site Body mass index (BMI) 45.0-49.9, adult (CMS/[facility]) Chronic kidney disease, stage 3a (CMS/HCC) Type 2 diabetes mellitus with diabetic chronic kidney disease ([facility]/HCC) Type 2 diabetes mellitus with diabetic peripheral angiopathy without gangrene (CMS/HCC) 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 His initial investigation was negative. He [...] [facility] and then transferred to [facility] due to COVID infection and large [...] he sees the wound clinic at the [facility]. He denies chest pain. Visit of [...] artery bypass surgery Coronary artery disease involving [place] coronary artery of [place] heart without angina pectoris Pericardial effusion Comments: resolved Orders: - Transthoracic echo (TTE) complete; Future Stage 3b chronic kidney disease (CMS/[facility]) 1. CAD status post [...] Observed: 01/23/2025 1:30 PM Status: COMPLETED Source: [facility] [id number] Arianne Mcqueen M Date Provider Department Center 01/23/2025 367-CATINA SALAZAR SHIPLI [place] Family History Problem Relation Age of Onset Coronary artery disease Mother Family Status - Relation Status Age at Mother Father Level of Service:22608 [place] OFFICE/OUTPATIENT ESTABLISHED MOD MDM 30 MIN ORDERS ONLY Observed: 01/12/2025 12:00 AM Status: COMPLETED Source: [facility] [id number] Arianne Mcqueen M Date Provider Department Center 01/12/2025 [id number], [facility] SHILPI Fossevsarahy Santiago Family History Problem Relation Age of Onset Coronary artery disease Mother Family Status - Relation Status Age at Mother 36 Observed: 01/02/2025 9:30 AM Status: COMPLETED Source: [facility] Spoke with Ladonna from [facility] and made her aware of furosemide [...] Observed: 12/30/2024 9:40 AM Status: COMPLETED Source: [facility] Ladonna with [facility] called asking if patient's diuretics could be increased. She said he was at [facility] ED recently for scrotal edema. She [...] Observed: 10/03/2024 3:30 PM Status: COMPLETED Source: [facility] Cardiology - [facility] Subjective Arianne Mcqueen is a [...] coronary artery bypass surgery Nonsustained ventricular tachycardia ([facility]) Syncope and collapse Wound of sternal region Chronic diastolic congestive heart failure ([facility]) COVID-19 Hyperglycemia Metabolic syndrome MGUS (monoclonal gammopathy of unknown significance) Pericardial effusion Pneumonia, bacterial Solitary pulmonary nodule Arthritis of right hip Bilateral lower extremity edema Constipation COPD (chronic obstructive pulmonary disease) ([facility]) Encounter for subsequent annual wellness visit (AWV) in Medicare patient Hearing decreased Hypercholesterolemia Hyperpigmentation Iron deficiency Lymphedema Lymphorrhea Myocardial infarction ([facility]) Nicotine dependence Osteoarthritis of both knees Papillomatosis Sleep apnea Morbid obesity ([facility]) Venous stasis ulcer of right lower extremity ([facility]) Wound cellulitis Diabetes mellitus, type II ([facility]) half-way (current) use of inhaled steroids Ulcer of lower extremity ([facility]) Aortic ectasia, unspecified site ([facility]) Body mass index (BMI) 45.0-49.9, adult ([facility]) Chronic kidney disease, stage 3a ([facility]) Type 2 diabetes mellitus with diabetic chronic kidney disease ([facility]) Type 2 diabetes mellitus with diabetic peripheral angiopathy without gangrene ([facility]) 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 His initial investigation was negative. He [...] [facility] and then transferred to [facility] due to COVID infection and large [...] he sees the wound clinic at the [facility]. He denies chest pain. Review of [...] artery bypass surgery Coronary artery disease involving [place] coronary artery of [place] heart without angina pectoris Pericardial effusion Comments: [...] Observed: 10/03/2024 3:30 PM Status: COMPLETED Source: [facility] [id number] Arianne Mcqueen M Date Provider Department [facility] Family History Problem Relation Age of Onset Coronary artery disease Mother Family Status - Relation Status Age at Mother Level of Service:[address] [place] OFFICE/OUTPATIENT ESTABLISHED MOD MDM 30 MIN ALLERGIES DATE TYPE / CODE NAME / CODE REACTION SEVERITY SOURCE SYSTEMIC/[id number]( SNOMED CT) NO KNOWN ALLERGIES [facility] ENCOUNTERS ADMIT/DISCHARGE ACCOUNT NUMBER ADMITTING ENCOUNTER CLASS LOCATION SOURCE 03/21/2025/ 5 [id number] Ambulatory Building[facility] 02/08/2025/ 5 [id number] Ambulatory Building:[facility] 01/23/2025/ 5 [id number] Ambulatory Building:[facility] 12/28/2024/ 5 [id number] Ambulatory Building:[facility] 12/19/2024/ 5 [id number] Ambulatory Building:[facility] 10/03/2024/ 5 [id number] Ambulatory Building:[facility] 09/27/2024/ 5 [id number] Ambulatory Building:[facility] 06/01/2024/ 4 [id number] Ambulatory Building:[facility] PAYERS ENCOUNTER GUARANTOR PAYER SUBSCRIBER SOURCE 03/21/2025 ARIANNE NAVARRETEB: [address] [address]Wrh: (HP) Primary Insurance:MEDICAL MUTUAL MEDICAREPolicy Number: [id number] Date:2024-08-24 ARIANNE NAVARRETEB: [id number] [address] [address] [facility] 02/08/2025 ARIANNE NAVARRETEB: [address] [address]Toc: () Primary Insurance:MEDICAL MUTUAL MEDICAREPolicy Number: [id number] Date:2024-08-24 ARIANNE NAVARRETEB: [id number] [address] [address] [facility] 01/23/2025 Primary Insurance:MEDICAL MUTUAL MEDICAREPolicy Number: [id number] Date:2024-08-24 ARIANNE NAVARRETEB: [id number] [address] [address] [facility] 12/28/2024 ARIANNE NAVARRETEB: [address] [address]Fws: (HP) Primary Insurance:MEDICAL MUTUAL MEDICAREPolicy Number: [id number] Date:2024-08-24 ARIANNE NAVARRETEB: [id number] [address] [address] [facility] 12/19/2024 ARIANNE NAVARRETEB: [address] [address]Fwq: (HP) Primary Insurance:MEDICAL MUTUAL MEDICAREPolicy Number: [id number] Date:2024-08-24 ARIANNE BRADY: [id number] [place] [phone] [facility] 10/03/2024 Primary Insurance:MEDICAL MUTUAL MEDICAREPolicy Number: [id number] Date:2024-08-24 ARIANNE BRADY: [id number] [address] 09/27/2024 ARIANNE BRADY: [address]Tel: (HP) Primary Insurance:MEDICAL MUTUAL MEDICAREPolicy Number: [id number] Date:2024-08-24 ARIANNE NAVARRETEB: [id number] [place] [phone] [facility] 06/01/2024 ARIANNE NAVARRETEB: [place] [phone]: (HP) [facility]: [id number] Date:2023-08-24 ARIANNE BRADY: [id number] [place] [phone] [facility] EPIC
[2025-05-23 10:46] VITALS: BP 106/66; PULSE 61; TEMP 36.4; O2SAT 96; BMI 46.6
--- NOTE | 2025-05-23 11:09 | ECG_ITS ---
[facility] Test Date: 2025-05-23 Pat Name: ARIANNE MCQUEEN Department: Room: - Gender: Male Insurance Appraiser: : 1945 Requested By: AIDEN NEELY Order Number: [id number] Reading MD: CATINA SALAZAR M.D. Measurements Intervals Niles Rate: 58 P: 25 LA: 194 QRS: 9 QRSD: 104 T: 61 QT: 456 QTc: 452 Interpretive Statements 1100 Sinus rhythm 8304 Long QTc interval 9150 abnormal ECG Compared to ECG 08/18/2022 07:44:27 No significant changes Electronically Signed On 05-23-2025 19:59:20 EDT by CATINA SALAZAR M.D.
[2025-05-23 11:16] LABS: Hematocrit 34.1 % (42.0-54.0); Hemoglobin 11.1 g/dL (14.0-18.0); Immature Granulocytes Abs Auto 0.11 10^3/uL (0.00-0.03); Immature Granulocytes Pct Auto 0.9 % (0.0-0.5); Lymphocytes Absolute Auto 0.7 10^3/uL (1.2-3.8); Mean Corpuscular HGB Conc 32.6 g/dL (29.9-35.2); Mean Corpuscular Hemoglobin 30.8 pg (25.9-34.0); Mean Corpuscular Volume 94.7 fL (80.0-94.0); Platelet Count 218 10^3/uL (150-450); Red Blood Count 3.60 10^6/uL (4.70-6.10); White Blood Count 11.6 10^3/uL (4.0-11.0)
[2025-05-23 11:21] VITALS: PULSE 58
--- OUTSIDE RECORDS SUMMARY | 2025-05-23 11:23 | XMS_ITS | Clinical Summary ---
Author Organization [facility] Address [address] [place] [address], [address] [place] [address] Care Team Providers Care Auricular Detoxification Specialist Name Role Phone Unavailable Primary Care Provider Unavailabl e Social History Tobacco Use Types Packs/Day Years Used Date Smoking Tobacco: Never Assessed Sex and Gender Information Value Date Recorded Sex Assigned at Not on file Legal Sex Male 7:40 PM EDT Gender Identity Not on file Sexual Orientation Not on file Plan of Treatment Not on file Insurance [facility] MEDICARE
--- OUTSIDE RECORDS SUMMARY | 2025-05-23 11:23 | XMS_ITS | Encounter Summary ---
Author Organization [facility] Address [address] [facility] [facility] [place] [address] Care Team Providers Care Criminal Justice Professor Name Role Phone House, Mal Bolden MD Unavailable [phone] Gilberto Stockton MD Unavailable Teressa Sierra CAREER DEVELOPMENT ENGINEER Unavailable Gilberto Stockton MD Primary Care Provider [phone] Gilberto Stockton MD Unavailable Encounter Details Date Type Department Care Team (Late st Contact Info) Description 11/05/2023 Orders Only [facility] [address] [place] [address] Teressa Sierra, CAREER DEVELOPMENT ENGINEER [address] [place] [address] Social History Tobacco Use Types Packs/Day Years [...] Office Visit [facility] [address] [facility] [address] [place] [address] Brenna Dangelo PA [address] [place] [address] documented as of this encounter Procedures Procedure Name Priority Date/Time Associated Diagnosis Comments ECHO TRANSTHORACIC W/ DOPPLER Routine 11/04/2023 8:14 AM EDT documented in this encounter Results * ECHO TRANSTHORACIC W/ DOPPLER (11/04/2023 8:14 AM EDT) Anatomical Region Laterality Modality Radiographic Aminta ging us Teressa Sierra CAREER DEVELOPMENT ENGINEER IMG XR PROCEDURES Final Result documented in this encounter Visit Diagnoses Not on filedocumented in this encounter Care Teams Criminal Justice Professor Relationship Specialty Start Date End Date Mal Perez MD PCP - External PCP Family Medicine 04/24/23 Gilberto Stockton MD [address] [place] [address] PCP - Devoted 08/24/23 08/23/24 Gilberto Stockton MD [address] [place] [address] PCP - General Family Medicine 03/09/24 Gilberto Stockton MD [address] [place] [address] PCP - Medical [facility] 08/24/2408/23 Teressa Sierra NP [address] [place] [address] Nurse Practitioner Family Medicine 09/09/23 documented as of this encounter
--- OUTSIDE RECORDS SUMMARY | 2025-05-23 11:23 | XMS_ITS | Encounter Summary ---
Author Organization [facility] Address [address] [place] [address], [address] [place] [address] Care Team Providers Care Slurry Plant Operator Name Role Phone Unavailable Primary Care Provider Unavailabl e Reason for Visit * Reason Comments Medication Refill Encounter Details Date Type Department Care Team (Late st Contact Info) Description 07/19/2021 [facility] Care [address] [place] [address] [place] [address] [place] [address] Medication Refill Social History Tobacco [...]
--- OUTSIDE RECORDS SUMMARY | 2025-05-23 11:23 | XMS_ITS | Encounter Summary ---
Author Organization [facility] Address [address] [place] [address] Care Team Providers Care Science Intern Name Role Phone House, Mal Bolden MD Unavailable [phone] Gilberto Stockton MD Unavailable Teressa Sierra NP Unavailable [phone] Gilberto Stockton MD Primary Care Provider [phone] Gilberto Stockton MD Unavailable Encounter Details Date Type Department Care Team (Late st Contact Info) Description 01/08/2024 Orders Only [facility] [address] [facility] [address] [place] [address] Marianne Hernandez MD [address] [place], [place] [address] Social History Tobacco Use Types Packs/Day Years [...] How often do you attend chur or druze services? Never 12/14/2023 Do you belong to any clubs o r organizations such as restorationism groups, unions, fraternal or athletic groups, or [...] Recorded Patient Health Questionnaire-2 Score 1 12/14/2023 [facility]at ional [facility] - Occupational Stress [...] place to sleep or slept in a custodial (including now)? No 12/14/2023 Sex and Gender [...] Dermatology [address] [place] [address] Brenna Dangelo PA [address] [place] [address] documented as of this encounter Procedures Procedure [...] documented as of this encounter Care Teams Science Intern Relationship Specialty Start Date End Date Mal Perez MD PCP - External PCP Family Medicine 04/24/23 Gilberto Stockton MD [address] [place] [address] PCP - Devoted 08/24/23 08/23/24 Gilberto Stockton MD [address] [place] [address] PCP - General Family Medicine 03/09/24 Gilberto Stockton MD [address] [place] [address] PCP - Medical [facility] 08/24/2408/23 Teressa Sierra NP [address] [place] [address] Nurse Practitioner Family Medicine 09/09/23 documented as of this encounter
--- OUTSIDE RECORDS SUMMARY | 2025-05-23 11:23 | XMS_ITS | Clinical Summary ---
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 Take with meals. 180 tablet 1 06/19/20 25 Active Fluticasone-Umecli din-Vilant (Trelegy Ellipta) 100-62.5-25 MCG/ACT aerosol powderIndications: Chronic obstructive pulmonary disease, unspecified COPD type ([facility]) 1 puff by Other route Daily Rinse [...] Plan (09/27/2024 4:23 PM EST): He has [facility] Home Health Nurse comes out few times per week for dressing changes Also sees Giselle Drew at Wound [facility] for mgmt of wound Type [...] at this time Encounter for subsequent [facility] wellness visit (AWV) in Medicare patient [...] in a year I did contact the [facility] Sleep lab ext [phone] to find out [...] in a year I did contact the [facility] Sleep lab ext [phone] to find out about scheduling the patient to see about an updated PAP machine: voicemail left at 16:20 on 09/27/24 Assessment & Plan (06/01/2024 4:58 PM EDT): Non compliant with PAP use, machine is broke , difficulty finding DME who takes his insurance I did leave a VM on Sleep lab [facility] regarding this for them to assist Assessment & Plan (12/14/2023 5:30 PM EDT): Follow with [facility] Sleep Lab Dr Amado, no [...] Plan (03/21/2025 7:14 AM EDT): Continue with [facility] Vein and Body Assessment & Plan (09/09/2023 4:09 PM EST): Continue with [facility] Vein and Body Myocardial infarction [...] MELLITUS WITH DIABETIC CHRONIC KIDNEY DISEASE (HCC) ([facility]/HCC) WRITTEN ON 03/14/2024 7:17 PM BY TERESSA [...] script Pericardial effusion ([facility]-HCC) 08/29/2021 Atherosclerosis of confederated salish co ronary artery of confederated salish heart without angina pectoris 08/29/2021 Assessment & Plan (09/27/2024 7:11 AM EST): Current meds: asa, statin, b fitz, imdur, aldactone, Cardiology: [facility] [place] Cough 07/03/2021 Other ventricular tachycardia 07/03/2021 Assessment [...] 3:00 PM EDT Office Visit [facility] [address] [place] [address] Teressa Sierra NP Essential hypertension (Primary Dx); Obstructive sleep apnea syndrome; Chronic obstructive pulmonary disease, unspecified COPD type (HCC); Chronic diastolic (congestive) heart failure (HCC); 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 of confederated sal[place] heart without angina pectoris ; Bilateral lower extremity edema; Type 2 diabetes mellitus with stage 3 chronic kidney disease, without long-term current use of insulin, unspecified whether stage 3a or 3b CKD ([facility]); Morbid (severe) obesity due to excess calories ([facility]-HCC); MGUS (monoclonal gammopathy of unknown significance); Atherosclerosis of conf[place] salish coronary artery of confed[place] sal[place] heart without angina pectoris ; Mixed hyperlipidemia ; 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 [address] [place] [address] Teressa Sierra NP 03/14/2025 Refill [facility] [address] [place] [address] Teressa Sierra NP Type 2 diabetes mellitus without complication, without long-term current use of insulin ([facility]); Localized edema 02/21/2025 Clinisync Result Encounter [facility] [...] any clubs o r organizations such as orthodox groups, unions, fraternal or athletic groups, [...] Recorded Patient Health Questionnaire-2 Score 0 12/19/2024 [facility] - Occupational Stress Questionnaire Answer Date Recorded [...] to sleep or slept in a senior care (including now)? No 12/14/2023 Sex and Gender [...] Dermatology [address] [place] [address] Brenna Dangelo PA [address] [place] [address] Health Maintenance Due Date Last [...] EDT Narrative 02/21/2025 2:41 [place] [address] Cardiology Report Signed Patient: ARIANNE MCQUEEN MR#: [id number] : 1945 Acct:[id number] Age/Sex: 79 / M ADM Date: 02/21/25 Loc: CARD Attending Dr: CATINA SALAZAR Ordering Physician: CATINA SALAZAR Date of Service: 02/21/25 Procedure(s): CA echo doppler complete Accession Number(s): [id number] cc: Teressa Sierra NP; CATINA SALAZAR Patient Name: ARIANNE MCQUEEN MR#: [id number] : 1945 Exam Date: 02/21/2025 Ordering Doctor: DR CATINA SALAZAR M.D. ECHOCARDIOGRAM REPORT PROCEDURE: CA ECHO DOPPLER COMPLETE INDICATIONS: Chronic diastolic heart failure, h/o pericardial effusion, CABG, SC, COPD, hypertension, diabetes COMPARISON: None. DESCRIPTION: COMPLETE [...] Area (VTI): 4.57 cm2, 4.57 cm2 Deceleration Garza: Pressure Half-Time: Peak Velocity(Antegrade Flow): 0.89 m/s [...] Signed By: 02/21/25 144 DD/ 144 TD/TT: Press Cutter: Procedure Note Radiology, Radiologist, MD - 02/21/2025 [place] [address] Cardiology Report Signed Patient: ARIANNE MCQUEEN AMR#: [id number] : 1945cct:[id number] Age/Sex: 79 / MADM Date: 02/21/25 Loc: CARD Attending Dr: CATNIA SALAZAR Ordering Physician: CATINA SALAZAR Date of Service: 02/21/25 Procedure(s): CA echo doppler complete Accession Number(s): [id number] cc: Teressa Sierra CONFERENCE CENTER MANAGER; CATINA SALAZAR Patient Name: ARIANNE MCQUEEN MR#: [id number] : 1945 Exam Date: 02/21/2025 Ordering Doctor: DR CATINA SALAZAR M.D. ECHOCARDIOGRAM REPORT PROCEDURE: CA ECHO DOPPLER COMPLETE INDICATIONS: Chronic diastolic heart failure, h/o pericardialeffusion, CABG, SC, COPD, hypertension, diabetes COMPARISON: None. DESCRIPTION: COMPLETE [...] Area (VTI): 4.57 cm2, 4.57 cm2 Deceleration Garza: Pressure Half-Time: Peak Velocity(Antegrade Flow): 0.89 m/s [...] M.D. Signed By:02/21/25 1441 DD/ 1440 TD/TT: Press Cutter: [facility] External Data Provider [facility] Final Result [...] 0.70 - 1.30 mg/dL TB[facility] EGFR-AF MOZAMBICAN 47(L) >=60 mL/min/1.7 3m 2 TBH [facility] EGFR-NON AF MOZAMBICAN 39(L) >=60 mL/min/1.7 3m 2 TBH BUN CREATININE RATIO 22.9 TBH CALCIUM 8.9 8.5 - 10.1 mg/dL [facility] 02/21/2025 12:2 6 PM EDT 02/21/2025 12:33 PM EDT Narrative [facility] - 02/21/2025 1:31 PM EDT us Generic External Data Provider [facility] F inal Result [facility] TB from Last 3 Months Insurance [employer] Care Teams Principal Consultant Relationship Specialty Start Date End Date Mal Perez MD PCP - External PCP Family Medicine 04/24/23 Gilberto Stockton MD PCP - General Family Medicine 03/09/24 Gilberto Stockton MD [address] [place] [address] PCP - Medical [place] 08/24/2408/23 Teressa Sierra NP Nurse Practitioner Family Medicine 09/09/23
--- OUTSIDE RECORDS SUMMARY | 2025-05-23 11:23 | XMS_ITS | Encounter Summary ---
Author Organization [facility] Address [address] [place] [address] Care Team Providers Care Mobile Electronics Installer Name Role Phone House, Mal Bolden MD Unavailable [phone] Gilberto Stockton MD Unavailable Teressa Sierra NP Unavailable [phone] Gilberto Stockton MD Primary Care Provider [phone] Gilberto Stockton MD Unavailable Encounter Details Date [...] How often do you attend chur or alevism services? Never 12/14/2023 Do you belong to [...] Recorded Patient Health Questionnaire-2 Score 1 12/14/2023 [facility] - Occupational Stress Questionnaire Answer Date [...] Dermatology [address] [place] [address] Brenna Dangelo PA [address] [place] [address] documented as of this encounter Procedures Procedure Name Priority Date/Time Associated Diagnosis Comments CA ECHO DOPPLER COMPLETE 01/07/2024 8:32 AM EDT documented in this encounter Results * CA ECHO DOPPLER COMPLETE (01/07/2024 8:32 AM EDT) Anatomical Region Laterality Modality Other 01/07/2024 8:32 AM EDT Narrative 01/07/2024 8:33 AM EDT The [address] [address] Cardiology Report Signed Patient: SHAN MCQUEEN MR#: [id number] : 1945 Acct:[id number] Age/Sex: 78 / M ADM Date: 01/05/24 Loc: CARD Attending Dr: ARIELLA GALLEGO APRN Ordering Physician: ARIELLA GALLEGO APRN Date of Service: 01/05/24 Procedure(s): CA echo doppler complete Accession Number(s): [id number] cc: Teressa Sierra SENIOR FINANCIAL CONSULTANT; ARIELLA GALLEGO APRN Patient Name: SHAN MCQUEEN MR#: [id number] : 1945 Exam Date: 01/05/2024 Ordering Doctor: ARIELLA GALLEGO ENTRY LEVEL ACCOUNT MANAGER ECHOCARDIOGRAM REPORT PROCEDURE: CA ECHO DOPPLER COMPLETE INDICATIONS: Diastolic heart failure, dyspnea on exertion, CABG, MT, COPD, hypertension, diabetes COMPARISON: None. DESCRIPTION: COMPLETE [...] HEARN Signed By: 01/07/2433 DD/ 1 TD/TT: Fiscal Officer: Procedure Note Radiology, Radiologist, - 01/07/2024 [place] [address] Cardiology Report Signed Patient: SHAN MCQUEEN AMR#: [id number] : 1945cct:[id number] Age/Sex: 78 / MADM Date: 01/05/24 Loc: CARD Attending Dr: ARIELLA GALLEGO APRN Ordering Physician: ARIELLA GALLEGO APRN Date of Service: 01/05/24 Procedure(s): CA echo doppler complete Accession Number(s): [id number] cc: Teressa Sierra SENIOR FINANCIAL CONSULTANT; ARIELLA GALLEGO APRN Patient Name: SHAN MCQUEEN MR#: [id number] : 1945 Exam Date: 01/05/2024 Ordering Doctor: ARIELLA GALLEGO ENTRY LEVEL ACCOUNT MANAGER ECHOCARDIOGRAM REPORT PROCEDURE: CA ECHO DOPPLER COMPLETE INDICATIONS: Diastolic heart failure, dyspnea on exertion, CABG, MT,COPD, hypertension, diabetes COMPARISON: None. DESCRIPTION: COMPLETE ECHOCARDIOGRAM [...] HEARN Signed By:01/07/24 0833 DD/ 0832 TD/TT: Fiscal Officer: us Generic External Data Provider [facility] Final Result documented in this encounter Visit Diagnoses Not on filedocumented in this encounter Additional Health Concerns Assessment Noted Time PHQ-9 Depression Total Score: 3 12/14/19 24 4:34 PM EDT documented as of this encounter Care Teams Mobile Electronics Installer Relationship Specialty Start Date End Date Mal Perez MD PCP - External PCP Family Medicine 04/24/23 Gilberto Stockton MD [address] [place] [address] PCP - [facility] 08/24/23 08/23/24 Gilberto Stockton MD [address] [place] [address] PCP - General Family Medicine 03/09/24 Gilberto Stockton MD [address] [place] [address] PCP - Medical [facility] 08/24/2408/23 Teressa Sierra NP [address] [place] [address] Nurse Practitioner Family Medicine 09/09/23 documented as of this encounter
--- OUTSIDE RECORDS SUMMARY | 2025-05-23 11:23 | XMS_ITS | Encounter Summary ---
Author Organization [facility] Address [address] [place] [address] Care Team Providers Care Shipping Agent Name Role Phone House, Mal Bolden MD Unavailable [phone] Gilberto Stockton MD Unavailable Teressa Sierra NP Unavailable [phone] Gilberto Stockton MD Primary Care Provider [phone] Gilberto Stockton MD Unavailable Encounter Details Date [...] [facility] [address] [place] [address] Brenna Dangelo PA [address] [facility] [address] [place] [address] documented as of this encounter Procedures Procedure Name Priority Date/Time Associated Diagnosis Comments SEGMENTAL BLOOD PRESSURE 11/04/2023 3:13 PM EDT documented in this encounter Results * SEGMENTAL BLOOD PRESSURE (11/04/2023 3:13 PM EDT) Anatomical Region Laterality Modality Radiographic Aminta ging 11/04/2023 3:13 PM EDT Narrative 11/05/2023 7:02 [place] [address] Cardiology Report Signed Patient: SHAN MCQUEEN MR#: [id number] : 1945 Acct:[id number] Age/Sex: 78 / M ADM Date: 11/04/23 Loc: CARD Attending Dr: Wallace Henry D.P.M. Ordering Physician: Wallace Henry D.P.M. Date of Service: 11/04/23 Procedure(s): CA segmental UE or LE ANDI Accession Number(s): [id number] cc: Teressa Sierra BANK NOTE DESIGNER; Wallace Henry D.P.M. The [facility] Test Date: 2023-11-04 Pat Name: SHAN MCQUEEN Department: Room: - Gender: Male Story Analyst: Genevieve Torres : 1945 Requested By: 2013 Order Number: [id number] Reading MD: NISHANT OSULLIVAN Interpretive Statements Biphasic [...] 11/05/23 0702 11/05/23 0702 DD/ 1513 TD/TT: Manufacturing Tech: Procedure Note Radiology, Radiologist, - 11/05/2023 [place] [address] Cardiology Report Signed Patient: SHAN MCQUEEN AMR#: [id number] : 1945cct:[id number] Age/Sex: 78 / MADM Date: 11/04/23 Loc: CARD Attending Dr: Wallace Henry D.P.M. Ordering Physician: Wallace Henry D.P.M. Date of Service: 11/04/23 Procedure(s): CA segmental UE or LE ANDI Accession Number(s): [id number] cc: Teressa Sierra NP; Wallace Henry D.P.M. [facility] Test Date: 2023-11-04 Pat Name: SHAN MCQUEEN Department: Room: - Gender: Male Story Analyst: Genevieve Torres : 1945 Requested By: 2013 Order Number: [id number] Reading MD: NISHANT OSULLIVAN Interpretive Statements Biphasic [...] By:11/05/23 0702 11/05/23 0702 DD/ 1513 TD/TT: Manufacturing Tech: us Generic External Data Provider IMG XR PROCEDURES Final Result documented in this encounter Visit Diagnoses Not on filedocumented in this encounter Care Teams Shipping Agent Relationship Specialty Start Date End Date Mal Perez MD PCP - External PCP Family Medicine 04/24/23 Gilberto Stockton MD [address] [place] [address] PCP - [facility] 08/24/23 08/23/24 Gilberto Stockton MD [address] [place] [address] PCP - General Family Medicine 03/09/24 Gilberto Stockton MD [address] [place] [address] PCP - Medical [facility] 08/24/2408/23 Teressa Sierra NP [address] [place] [address] Nurse Practitioner Family Medicine 09/09/23 documented as of this encounter
--- OUTSIDE RECORDS SUMMARY | 2025-05-23 11:23 | XMS_ITS | Encounter Summary ---
Author Organization [facility] Address [address] [place] [address] Care Team Providers Care Patternmaker Helper Name Role Phone House, Mal Bolden MD Unavailable [phone] Gilberto Stockton MD Unavailable Teressa Sierra NP Unavailable Gilberto Stockton MD Primary Care Provider [phone] Gilberto Stockton MD Unavailable Encounter Details Date [...] any clubs o r organizations such as congregational groups, unions, fraternal or athletic groups, or [...] Patient Health Questionnaire-2 Score 1 12/14/2023 [facility] - Occupational Stress Questionnaire Answer [...] Dermatology [address] [place] [address] Brenna Dangelo PA [address] [place] [address] documented as of this encounter Procedures Procedure Name Priority Date/Time Associated Diagnosis Comments NM AMBERLY PERF SPECT REST STR 03/23/2024 2:57 PM EDT documented in this encounter Results * NM AMBERLY PERF SPECT REST STR (03/23/2024 2:57 PM EDT) Anatomical Region Laterality Modality Other 03/23/2024 2:57 PM EDT Narrative 03/23/2024 2:58 PM EDT The [place] [id number] Nuclear Medicine Report Signed Patient: SHAN MCQUEEN MR#: [id number] : 1945 Acct:[id number] Age/Sex: 78 / M ADM Date: 03/17/24 Loc: [place] Attending Dr: ARIELLA GALLEGO APRN Ordering Physician: ARIELLA GALLEGO APRN Date of Service: 03/17/24 Procedure(s): NM amberly perf SPECT rest str Accession Number(s): [id number] cc: Teressa Sierra LATEXER; ARIELLA GALLEGO APRN Patient Name: SHAN MCQUEEN MR#: [id number] : 1945 Exam Date: 03/17/2024 Ordering Doctor: [...] STUDY: Good. PERFUSION DEFECT: LOCATION: Apical anterior. [place]. SIZE: Small (1-2 segments). SEVERITY: Mild. TYPE: [...] Signed By: 03/23/24 1458 DD/ 1457 TD/TT: Rug Touch Up Painter: Procedure Note Radiology, Radiologist, MD - 03/23/2024 The [place] [id number] Nuclear Medicine Report Signed Patient: SHAN MCQUEEN AMR#: [id number] : 4Acct:[id number] Age/Sex: 78 / MADM Date: 03/17/24 Loc: [place] Attending Dr: ARIELLA GALLEGO APRN Ordering Physician: ARIELLA GALLEGO APRN Date of Service: 03/17/24 Procedure(s): NM amberly perf SPECT rest str Accession Number(s): [id number] cc: Teressa Sierra NP; ARIELLA GALLEGO APRN Patient Name: SHAN MCQUEEN MR#: [id number] : 1945 Exam Date: 03/17/2024 Ordering Doctor: [...] STUDY: Good. PERFUSION DEFECT: LOCATION: Apical anterior. [place]. SIZE: Small (1-2 segments). SEVERITY: Mild. TYPE: [...] M.D. Signed By:03/23/24 1458 DD/ 1457 TD/TT: Rug Touch Up Painter: us Generic External Data Provider [facility] Final Result documented in this encounter Visit Diagnoses Not on filedocumented in this encounter Additional Health Concerns Assessment Noted Time PHQ-9 Depression Total Score: 3 12/14/19 24 4:34 PM EDT documented as of this encounter Care Teams Patternmaker Helper Relationship Specialty Start Date End Date Mal Perez MD PCP - External PCP Family Medicine 04/24/23 Gilberto Stockton MD [address] [place] [address] PCP - [facility] 08/24/23 08/23/24 Gilberto Stockton MD [address] [place] [address] PCP - General Family Medicine 03/09/24 Gilberto Stockton MD [address] [place] [address] PCP - Medical [facility] 08/24/2408/23 Teressa Sierra NP [address] [place] [address] Nurse Practitioner Family Medicine 09/09/23 documented as of this encounter
--- OUTSIDE RECORDS SUMMARY | 2025-05-23 11:23 | XMS_ITS | Encounter Summary ---
Author Organization [facility] Address [address] [facility] [place] [address] Care Team Providers Care Component Inspector Name Role Phone House, Mal Bolden MD Unavailable [phone] Gilberto Stockton MD Unavailable Teressa Sierra NP Unavailable [phone] Gilberto Stockton MD Primary Care Provider [phone] Gilberto Stockton MD Unavailable Reason for Visit * Reason Comments Med Refill Encounter Details Date Type Department Care Team (Late st Contact Info) Description 12/24/2023 Refill [facility] [address] [facility] [place] [address] Teressa Sierra, HERPETOLOGY TEACHER [address] [facility] [place] [address] Social History Tobacco Use Types Packs/Day Years [...] How often do you attend chur or yazidism services? Never 12/14/2023 Do you belong to [...] Recorded Patient Health Questionnaire-2 Score 1 12/14/2023 [facility] - Occupational [...] Dermatology [address] [place] [address] Brenna Dangelo PA [address] [place] [address] documented as of this encounter Visit Diagnoses Not on filedocumented in this encounter Additional Health Concerns Assessment Noted Time PHQ-9 Depression Total Score: 3 12/14/19 24 4:34 PM EDT documented as of this encounter Care Teams Component Inspector Relationship Specialty Start Date End Date Mal Perez MD PCP - External PCP Family Medicine 04/24/23 Gilberto Stockton MD [address] [place] [address] PCP - [facility] 08/24/23 08/23/24 Gilberto Stockton MD [address] [place] [address] PCP - General Family Medicine 03/09/24 Gilberto Stockton MD [address] [place] [address] PCP - Medical [facility] 08/24/2408/23 Teressa Sierra NP [address] [place] [address] Nurse Practitioner Family Medicine 09/09/23 documented as of this encounter
--- OUTSIDE RECORDS SUMMARY | 2025-05-23 11:23 | XMS_ITS | Encounter Summary ---
Author Organization [facility] Address [id number] [address] [place] [address] Care Team Providers Care Clothing Cutter Name Role Phone Mal Perez DO Primary Care Provider [phone] Encounter Details Date Type Department Care Team (Late st Contact Info) Description 08/29/2021 Orders Only [facility] [employer] [address] [place] [phone] Transcribe, Orders Support User Pain (Primary [...] documented as of this encounter Care Teams Clothing Cutter Relationship Specialty Start Date End Date Mal Perez DO PCP - General Family Medicine 08/24/21 documented as of this encounter
--- OUTSIDE RECORDS SUMMARY | 2025-05-23 11:23 | XMS_ITS | Clinical Summary ---
Author Organization [facility] Address [address] [address] Care Team Providers Care Pooling Operator Name Role Phone Teressa Sierra MD Primary Care Provider [phone] Allergies No known active allergies Medications ferrous [...] 24 hr tabletIndication s:Coronary artery disease involving [place] coronary artery of [place] heart with other form of angina pectoris [...] with ulcer of unspecified site (CODE) 03/14/2024 adjunct faculty for medical terminology (current) use of inhaled steroids 02/21 Hyperpigmentation 12/17/2023 12/17/2023 Lymphedema 12/17/2023 12/17/2023 Lymphorrhea 12/17/2023 12/17/2023 Wound cellulitis 12/17/2023 12/17/2023 Arthritis of right hip 12/14/2023 Encounter for subsequent [facility] wellness visit (AWV) in Medicare patient [...] (12/17/2023): Last Assessment & Plan: Follow with [facility] Sleep Lab Dr Amado, no [...] Type Department Care Team Description 02/28/2025 Telephone [facility] [address] [place] [address] Katty Peters MA from Last 3 Months Immunizations Immunization Administration [...] Diabetes: Hemoglobin A1C 07/05/2021 04/04/2021 COVID-19 Vaccine ( - 2024-2 6 season) 2025 10/30/2020, 10/01/2020 Influenza Vaccine (#1) 2025 HIB [...] Procedure Name Priority Date/Time Associated Diagnosis Comments HEMOGLOBIN A1C Timed 04/04/2021 5:35 AM EDT from Last 3 Months or Most Recently Relevant to Health Maintenance Results * Hemoglobin A1c (04/04/2021 5:35 AM EDT) Hemoglobin A1C 5.4 4.0 - 6.0 % LAB CONVERSIONS Estimated Average Glucose 108 mmol/L LAB CONVERSIONS 04/04/2021 5:35 AM EDT 04/04/2021 6:14 AM EDT Narrative LAB CONVERSIONS - 04/04/2021 8:56 AM EDT No: Do not add to previous draw us Gary Rooney MD LAB BLOOD ORDERABLES Final Resu lt LAB CONVERSIONS from Last 3 Months or Most Recently Relevant to Health Maintenance Insurance [employer] Care Teams Pooling Operator Relationship Specialty Start Date End Date Teressa Sierra MD [address] [place] [address] PCP - General Nurse Practitioner 12/17/23
--- OUTSIDE RECORDS SUMMARY | 2025-05-23 11:23 | XMS_ITS | Encounter Summary ---
Author Organization [facility] Address [address] [facility] [place] [address] Care Team Providers Care Sausage Inspector Name Role Phone House, Mal Bolden MD Unavailable Gilberto Stockton MD Unavailable Teressa Sierra NP Unavailable [phone] Gilberto Stockton MD Primary Care Provider [phone] Gilberto Stockton MD Unavailable Encounter Details Date Type Department Care Team (Late st Contact Info) Description 09/07/2023 Abstract [facility] [address] [place] [address] Teressa Sierra, CUAUHTEMOC [address] [facility] [place] [address] Social History Tobacco Use Types Packs/Day Years [...] Dermatology [address] [place] [address] Brenna Dangelo PA [address] [place] [address] documented as of this encounter Visit Diagnoses Not on filedocumented in this encounter Care Teams Sausage Inspector Relationship Specialty Start Date End Date Mal Perez MD PCP - External PCP Family Medicine 04/24/23 Gilberto Stockton MD [address] [place] [address] PCP - Devoted 08/24/23 08/23/24 Gilberto Stockton MD [address] [place] [address] PCP - General Family Medicine 03/09/24 Gilberto Stockton MD [address] [place] [address] PCP - Medical [facility] 08/24/2408/23 Teressa Sierra NP [address] [place] [address] Nurse Practitioner Family Medicine 09/09/23 documented as of this encounter
--- OUTSIDE RECORDS SUMMARY | 2025-05-23 11:24 | XMS_ITS | Encounter Summary ---
Author Organization [facility] Address [address] [place] [address] Care Team Providers Care Ap Processor Name Role Phone House, Mal Bolden MD Unavailable [phone] Gilberto Stockton MD Unavailable Teressa Sierra NP Unavailable [phone] Gilberto Stockton MD Primary Care Provider Gilberto Stockton MD Unavailable Encounter Details Date Type Department Care Team (Late st Contact Info) Description 03/18/2023 Abstract [facility] [address] [id number] London Alcantara MD [address] [facility] [address] [place] [address] Social History Tobacco Use Types [...] Office Visit [facility] [address] [facility] [address] [place] [address] Brenna Dangelo PA [address] [place] [address] documented as of this encounter Visit Diagnoses Not on filedocumented in this encounter Care Teams Ap Processor Relationship Specialty Start Date End Date Mal Perez MD PCP - External PCP Family Medicine 04/24/23 Gilberto Stockton MD [address] [place] [phone] PCP - Devoted 08/24/23 08/23/24 Gilberto Stockton MD [address] [place] [phone] PCP - General Family Medicine 03/09/24 Gilberto Stockton MD [address] [place] [phone] PCP - Medical [facility] 08/24/2408/23 Teressa Sierra NP [address] [place] [phone] Nurse Practitioner Family Medicine 09/09/23 documented as of this encounter
--- OUTSIDE RECORDS SUMMARY | 2025-05-23 11:24 | XMS_ITS | Encounter Summary ---
Author Organization [facility] Address [address] [place] [address] Care Team Providers Care Bsa/Aml Compliance Officer Name Role Phone House, Mal Bolden MD Unavailable [phone] Gilberto Stockton MD Unavailable Teressa Sierra NP Unavailable [phone] Gilberto Stockton MD Primary Care Provider Gilberto Stockton MD Unavailable Encounter Details Date Type Department Care Team (Late st Contact Info) Description 03/04/2023 Abstract [facility] [address] [phone] London Alcantara MD [address] [facility] [address] [place] [address] Social History Tobacco Use Types [...] Office Visit [facility] Dermatology [address] [facility] [address] [place] [address] Brenna Dangelo PA [address] [place] [address] documented as of this encounter Visit Diagnoses Not on filedocumented in this encounter Care Teams Bsa/Aml Compliance Officer Relationship Specialty Start Date End Date Mal Perez MD PCP - External PCP Family Medicine 04/24/23 Gilberto Stockton MD [address] [place] [phone] PCP - Devoted 08/24/23 08/23/24 Gilberto Stockton MD [address] [place] [phone] PCP - General Family Medicine 03/09/24 Gilberto Stockton MD [address] [place] [phone] PCP - Medical [facility] 08/24/2408/23 Teressa Sierra NP [address] [place] [address] Nurse Practitioner Family Medicine 09/09/23 documented as of this encounter
--- OUTSIDE RECORDS SUMMARY | 2025-05-23 11:24 | XMS_ITS | Encounter Summary ---
Author Organization [facility] Address [address] [place] [address] Care Team Providers Care Subject Scientific Research Name Role Phone House, Mal Bolden MD Unavailable [phone] Gilberto Stockton MD Unavailable Teressa Sierra NP Unavailable [phone] Gilberto Stockton MD Primary Care Provider Gilberto Stockton MD Unavailable Encounter Details Date Type Department Care Team (Late st Contact Info) Description 02/19/2023 Abstract [facility] [address] [phone] London Alcantara MD 703 [facility] [address] [place] [address] Social History Tobacco Use Types [...] Office Visit JASMYNE [facility] Dermatology [address] [facility] [address] [place] [address] Brenna Dangelo PA [address] [place] [address] documented as of this encounter Visit Diagnoses Not on filedocumented in this encounter Care Teams Subject Scientific Research Relationship Specialty Start Date End Date Mal Perez MD PCP - External PCP Family Medicine 04/24/23 Gilberto Stockton MD [address] [place] [phone] PCP - Devoted 08/24/23 08/23/24 Gilberto Stockton MD [address] [place] [phone] PCP - General Family Medicine 03/09/24 Gilberto Stockton MD [address] [place] [address] PCP - Medical [facility] 08/24/2408/23 Teressa Sierra NP [address] [place] [phone] Nurse Practitioner Family Medicine 09/09/23 documented as of this encounter
--- OUTSIDE RECORDS SUMMARY | 2025-05-23 11:24 | XMS_ITS | Clinical Summary ---
Author Organization [employer] Address [id number] [address] 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
--- OUTSIDE RECORDS SUMMARY | 2025-05-23 11:24 | XMS_ITS | Encounter Summary ---
Author Organization [facility] Address [address] [place] [address] Care Team Providers Care Supervisor Food Checkers And Cashiers Name Role Phone House, Mal Bolden MD Unavailable [phone] Teressa Sierra NP Unavailable [phone] Gilberto Stockton MD Primary Care Provider [phone] Gilberto Stockton MD Unavailable Encounter Details Date Type Department Care Team (Latest Contact Info) Description 01/03/2025 Results Follow-Up [facility] [place] [facility] [address] [facility] [address] [place] [address] Brenna Dangelo PA [address] [facility] [address] [place] [address] Dermatopathology exam Social History Tobacco [...] How often do you attend chur or amish services? Never 12/14/2023 Do you belong to any clubs o r organizations such as methodist groups, unions, fraternal or athletic groups, or [...] Dermatology [address] [place] [address] Brenna Dangelo PA [address] [place] [address] documented as of this encounter Visit Diagnoses Not on filedocumented in this encounter Additional Health Concerns Assessment Noted Time PHQ-9 Depression Total Score: 2 12/20/19 25 5:02 PM EDT documented as of this encounter Care Teams Supervisor Food Checkers And Cashiers Relationship Specialty Start Date End Date Mal Perez MD PCP - External PCP Family Medicine 04/24/23 Gilberto Stockton MD PCP - General Family Medicine 03/09/24 Gilberto Stockton MD [address] [place] [address] PCP - Medical [facility] 08/24/2408/23 Teressa Sierra NP Nurse Practitioner Family Medicine 09/09/23 documented as of this encounter
--- OUTSIDE RECORDS SUMMARY | 2025-05-23 11:24 | XMS_ITS | Encounter Summary ---
Author Organization [facility] Address [address] [place] [address] Care Team Providers Care Varnish Maker Helper Name Role Phone House, Mal Bolden MD Unavailable [phone] Teressa Sierra NP Unavailable [phone] Gilberto Stockton MD Primary Care Provider [phone] Gilberto Stockton MD Unavailable Encounter Details Date Type Department Care Team (Latest Contact Info) Description 02/13/2025 Results Follow-Up [facility] Dermatology [address] [facility] [address] [place] [address] Yadi Malik MD [address] [facility] [address] [place] [address] Dermatopathology exam Social History Tobacco [...] How often do you attend chur or restoration services? Never 12/14/2023 Do you belong to [...] Recorded Patient Health Questionnaire-2 Score 0 12/19/2024 [facility] - Occupational [...] [address] [place] [address] Brenna Dangelo PA [address] [place] [address] documented as of this encounter Visit Diagnoses Not on filedocumented in this encounter Additional Health Concerns Assessment Noted Time PHQ-9 Depression Total Score: 2 12/20/19 25 5:02 PM EDT documented as of this encounter Care Teams Varnish Maker Helper Relationship Specialty Start Date End Date Mal Perez MD PCP - External PCP Family Medicine 04/24/23 Gilberto Stockton MD PCP - General Family Medicine 03/09/24 Gilberto Stockton MD [address] [place] [address] PCP - Medical [facility] 08/24/2408/23 Teressa Sierra NP Nurse Practitioner Family Medicine 09/09/23 documented as of this encounter
--- OUTSIDE RECORDS SUMMARY | 2025-05-23 11:24 | XMS_ITS | Encounter Summary ---
Author Organization [facility] Address [address] [place] [address] Care Team Providers Care Heel Shaper Name Role Phone House, Mal Bolden MD Unavailable [phone] Teressa Sierra NP Unavailable [phone] Gilberto Stockton MD Primary Care Provider [phone] Gilberto Stockton MD Unavailable Reason for Visit * Reason Comments Med Refill Encounter Details Date Type Department Care Team (Late st Contact Info) Description 03/14/2025 Refill [facility] [address] [place] [address] Teressa Sierra, OFFICE AUTOMATION TECHNICIAN [address] [place] [address] Type 2 diabetes mellitus without complication, without [...] often do you attend chur ch or jewish services? Never 12/14/2023 Do you belong to any clubs o r organizations such as sabianist groups, unions, fraternal or athletic groups, or [...] Recorded Patient Health Questionnaire-2 Score 0 12/19/2024 [facility] - [...] place to sleep or slept in a snf (including now)? No 12/14/2023 Sex and Gender [...] Dermatology [address] [place] [address] Brenna Dangelo PA [address] [place] [address] documented as of this encounter Visit Diagnoses Diagnosis Type 2 diabetes mellitus without complication, without long-term current use of insulin (HCC) Localized edema Edema documented in this encounter Additional Health Concerns Assessment Noted Time PHQ-9 Depression Total Score: 2 12/20/19 25 5:02 PM EDT documented as of this encounter Care Teams Heel Shaper Relationship Specialty Start Date End Date Mal Perez MD PCP - External PCP Family Medicine 04/24/23 Gilberto Stockton MD PCP - General Family Medicine 03/09/24 Gilberto Stockton MD [address] [place] [address] PCP - Medical [place] [facility] 08/24/2408/23 Teressa Sierra NP Nurse Practitioner Family Medicine 09/09/23 documented as of this encounter
--- NOTE | 2025-05-23 11:25 | XR_ITS ---
The [place] [id number] Patient Name: ARIANNE MCQUEEN MRN: [id number] date: 1945 Sex: M Assigned Patient Location: ED.MAIN Current Patient Location: ED.MAIN Accession/Order Number: [id number] Exam Date: 05/23/2025 11:17 Report Date: 05/23/2025 12:05 At the request of: JAX GALLOWAY DO Procedure: XR chest 1V PORTABLE AP ERECT CHEST 1120 hours CLINICAL HISTORY: Shortness breath, cough and lower extremity erythema. COMPARISON: CT 06/18/2023 and chest x-ray 08/20/2022 Evaluation is limited by large body habitus. The heart is enlarged. There is increase in interstitial markings which might be edema. The left hemidiaphragm is not discretely visualized. This could be technical however adjacent pleural and/or parenchymal change is not excluded. No pneumothorax is noted. The bony structures are osteopenic. XR/XR chest 1V IMPRESSION: SLIGHT LIMITED EVALUATION. CARDIOMEGALY AND INTERSTITIAL CHANGES WHICH COULD BE FAILURE. CORRELATION IS SUGGESTED. CANNOT EXCLUDE LEFT BASILAR PLEURAL AND/OR PARENCHYMAL CHANGE WITHIN LIMITS OF THIS SINGLE VIEW. Impression dictated by: Melissa Tony M.D. 05/23/2025 12:05 PM Dictation Location: [place] [address] Electronically authenticated by: [id number] Y Date: 05/23/2025 12:05
[2025-05-23 11:51] LABS: Anion Gap 12.6; Blood Urea Nitrogen 44.0 mg/dL (7.0-18.0); Calcium 8.1 mg/dL (8.5-10.1); Carbon Dioxide 24.7 mmol/L (21.0-32.0); Chloride 98 mmol/L (98-107); Estimated GFR (African America 36 (>=60 mL/min/1.73m^2); Estimated GFR (Non-African Ame 29 (>=60 mL/min/1.73m^2); Glucose 111 mg/dL (74-106); NT Pro B Type Natriuretic Pept 1042.0 pg/mL (<=1800.0); Potassium 4.3 mmol/L (3.5-5.1); Sodium 131 mmol/L (136-145)
--- NOTE | 2025-05-23 13:25 | ED.GENADUL1 ---
HPI HPI - General Adult General Chief complaint: Extremity Problem, Nontraumatic Stated complaint: LOWER EXTREMITY WOUND Time Seen by Provider: 05/23/25 10:58 Source: patient Mode of arrival: Wheelchair Limitations: no limitations History of Present Illness HPI narrative: Patient is an 80-year-old male presenting to the emergency department for evaluation of right lower extremity redness. The patient was at his wound care clinic earlier today, and nursing staff for concern for infection of the right lower extremity. He has a history of chronic lymphedema, diabetic foot ulcers, CHF, and diabetes. Patient states that approximately 6 days ago he started having redness and swelling of the right lower extremity that has gotten significantly worse. He states it is painful to the touch. He denies any other symptoms such as chest pain, fevers, chills, shortness of breath, nausea, or vomiting. Denies history of DVT/PE. He is not on blood thinners. Related Data Allergies Allergy/AdvReac Type Severity Reaction Status Date / Time No Known Drug Allergies Allergy Verified 05/23/25 10:46 Opioid HPI Opioid Management Most Recent Opioid Data: Last Pain Scale 5 Today, 11:07 Review of Systems ROS Status of ROS 10 or more systems reviewed and unremarkable except as noted in history and below PFSH PFSH Social History Little interest or pleasure in doing things: not at all Feeling down, depressed, or hopeless: not at all Exam Narrative Exam Narrative: CONSTITUTIONAL: Well-appearing, answering questions and following commands appropriately SKIN: Was warm and dry. EYES: Sclerae white. EARS, NOSE, THROAT: Moist oral mucosa. RESPIRATORY: Clear to auscultation bilaterally, no wheezes, crackles, or stridor, no use of accessory muscles CARDIOVASCULAR: Normal rate and regular rhythm. There is no S3, S4, murmur, rub. GASTROINTESTINAL: Abdomen is nondistended. MUSCULOSKELETAL: The right lower extremity is erythematous, tender to palpation, with induration involving the entire foot all the way up to his knee. No crepitus. No bulla. The left lower extremity is chronic lymphedema changes without evidence of an acute infection. NEUROLOGIC: Patient is awake and alert. Good strength and sensation light touch throughout the bilateral lower extremities. Constitutional Vital Signs, click to edit/add: Last Vital Signs Temp 97.5 F L 05/23/25 10:46 Pulse 61 05/23/25 10:46 Resp 24 H 05/23/25 10:46 BP 106/66 05/23/25 10:46 Pulse Ox 96 05/23/25 10:46 O2 Del Method Room Air 05/23/25 10:46 Course Vital Signs Vital signs: Vital Signs Temperature 97.5 F L 05/23/25 10:46 Pulse Rate 61 05/23/25 10:46 Respiratory Rate 24 H 05/23/25 10:46 Blood Pressure 106/66 05/23/25 10:46 Pulse Oximetry 96 05/23/25 10:46 Oxygen Delivery Method Room Air 05/23/25 10:46 Temperature 97.5 F L 05/23/25 10:46 Pulse Rate 61 05/23/25 10:46 Respiratory Rate 24 H 05/23/25 10:46 Blood Pressure 106/66 05/23/25 10:46 Pulse Oximetry 96 05/23/25 10:46 Oxygen Delivery Method Room Air 05/23/25 10:46 Medical Decision Making MDM Narrative Medical decision making narrative: Patient is an 80-year-old male, history significant for CHF, diabetes, obesity, CHF, lymphedema, presenting to the emergency department for evaluation of right lower extremity erythema and swelling over the last 6 days. His vital signs on arrival are significant for mild tachypnea, otherwise were within normal limits. He is afebrile and hemodynamically stable. Examination as noted above. The foot is warm and well-perfused with dopplerable distal pulses. Differential diagnoses include cellulitis, DVT, lymphedema, stasis dermatitis. He does have a history of CHF, and is mildly tachypneic, therefore workup was obtained to rule out CHF exacerbation, ACS, arrhythmia, or pneumonia. IV was established and laboratory studies were obtained. Laboratory studies were significant for mild leukocytosis. He is anemic but at his baseline. Mildly hyponatremic. No other electrolyte derangement. Mild acute kidney injury with a creatinine of 2.16 up from his baseline of approximately 1.7. Troponin and BNP not significantly elevated. Duplex ultrasound of the right lower extremity was negative for acute DVT. Chest x-ray demonstrated cardiomegaly and interstitial changes. 12 Lead EKG: Normal sinus rhythm at a rate of 58. Normal axis. No ST segment elevations. QRS, OK, and QTc interval within normal limits. Final impression: normal sinus rhythm without evidence of acute myocardial ischemia. Given the patient's multiple comorbidities and elderly age, I do believe he warrants admission to the observation unit for further treatment as he is at risk for decompensation. I empirically treated with IV vancomycin and obtain blood cultures. Urinalysis was ordered at the request of the hospitalist. I did discuss the patient with Dr. Aragon who accepted the patient to his service. FINAL IMPRESSION: #Acute right lower extremity cellulitis DISPOSITION: Admitted to the observation unit CONDITION: Fair Medical Records Medical records reviewed: Yes I reviewed the patient's medical records Lab Data Lab results reviewed: Yes I reviewed the patient's lab results Labs: Lab Results 05/23/25 Range/Units 11:00 WBC 11.6 H (4.0-11.0) 10^3/uL RBC 3.60 L (4.70-6.10) 10^6/uL Hgb 11.1 L (14.0-18.0) g/dL Hct 34.1 L (42.0-54.0) % MCV 94.7 H (80.0-94.0) fL MCH 30.8 (25.9-34.0) pg MCHC 32.6 (29.9-35.2) g/dL RDW 14.2 (11.0-15.0) % Plt Count 218 (150-450) 10^3/uL MPV 9.2 L (9.5-13.5) fL Neut % (Auto) 85.0 H (43.0-75.0) % Lymph % (Auto) 6.0 L (20.5-60.0) % Humphreys % (Auto) 7.8 (1.7-12.0) % Eos % (Auto) 0.0 L (0.9-7.0) % Baso % (Auto) 0.3 (0.2-2.0) % Neut # (Auto) 9.9 H (1.4-6.5) 10^3/uL Lymph # (Auto) 0.7 L (1.2-3.8) 10^3/uL Humphreys # (Auto) 0.9 H (0.3-0.8) 10^3/uL Eos # (Auto) 0.0 (0.0-0.7) 10^3/uL Baso # (Auto) 0.0 (0.0-0.1) 10^3/uL Abs Immat Gran (auto) 0.11 H (0.00-0.03) 10^3/uL Imm/Tot Granulo (auto) 0.9 H (0.0-0.5) % Sodium 131 L (136-145) mmol/L Potassium 4.3 (3.5-5.1) mmol/L Chloride 98 (98-107) mmol/L Carbon Dioxide 24.7 (21.0-32.0) mmol/L Anion Gap 12.6 BUN 44.0 H (7.0-18.0) mg/dL Creatinine 2.16 H (0.70-1.30) mg/dL Est GFR ( Amer) 36 L (>=60 mL/min/1.73m^2) Est GFR (Non-Af Amer) 29 L (>=60 mL/min/1.73m^2) BUN/Creatinine Ratio 20.4 Glucose 111 H (74-106) mg/dL Calcium 8.1 L (8.5-10.1) mg/dL Troponin I High Sens 5.6 (4.0-76.1) pg/mL NT-Pro-B Natriuret Pep 1042.0 (<=1800.0) pg/mL Imaging Data CT scan - abdomen: Attestation: I personally reviewed and interpreted this imaging study as follows: Radiologist's impression: ITS Impressions Chest X-Ray 05/23/25 11:25 IMPRESSION: SLIGHT LIMITED EVALUATION. CARDIOMEGALY AND INTERSTITIAL CHANGES WHICH COULD BE FAILURE. CORRELATION IS SUGGESTED. CANNOT EXCLUDE LEFT BASILAR PLEURAL AND/OR PARENCHYMAL CHANGE WITHIN LIMITS OF THIS SINGLE VIEW. Impression dictated by: Melissa Tony M.D. 05/23/2025 12:05 PM Dictation Location: [place] [address] Electronically authenticated by: [id number] Y Date: 05/23/2025 12:05 ECG Data Attestation: I personally reviewed and interpreted this ECG as follows: Discharge Plan Discharge Chief Complaint: Extremity Problem, Nontraumatic Clinical Impression: Cellulitis Qualifiers: Site of cellulitis: extremity Site of cellulitis of extremity: lower extremity Laterality: right Qualified Code(s): L03.115 - Cellulitis of right lower limb Patient Disposition: Admitted as Observation Time of Disposition Decision: 13:17 Condition: Fair
[2025-05-23] MEDS: VANCOMYCIN HCL 2,000 MG in 0.9 % SODIUM CHLORIDE 500 ML 250 MG IV (13:46)
[2025-05-23 14:20] VITALS: BMI 46.6
[2025-05-23 14:33] VITALS: BP 121/65; PULSE 58; TEMP 36.7; O2SAT 92
[2025-05-23 14:35] VITALS: BP 101/61; PULSE 63; O2SAT 95
--- NOTE | 2025-05-23 15:26 | US_ITS ---
The [address] [address] Patient Name: ARIANNE MCQUEEN MRN: [id number] date: 1945 Sex: M Assigned Patient Location: MS Current Patient Location: MS Accession/Order Number: [id number] Exam Date: 05/23/2025 16:39 Report Date: 05/24/2025 09:51 At the request of: JHOAN SYED MD Procedure: US renal BI BILATERAL RENAL AND BLADDER ULTRASOUND CLINICAL HISTORY: Acute on chronic kidney disease COMPARISON: None Evaluation is slightly limited by body habitus. Estimation of renal size is approximately 12.0 cm on the right and 13.2 cm on the left. No shadowing calculi or hydronephrosis are identified. A parapelvic cyst is present at the superior pole on the left measuring 2.2 x 2.1 x 1.9 cm. There is no perinephric fluid. The urinary bladder is partially distended with a volume of 205 mL. No contour or intraluminal abnormalities are seen. US/US renal BI IMPRESSION: NO OBSTRUCTIVE UROPATHY. LEFT RENAL CYST. Impression dictated by: Melissa Tony M.D. 05/24/2025 9:51 AM Dictation Location: [place] [address] Electronically authenticated by: [id number] Y Date: 05/24/2025 09:51
--- NOTE | 2025-05-23 16:03 | PM.HP ---
HPI H&P: HPI History of Present Illness Chief complaint: CELLULITIS Narrative: Mr. Young is an 80-year-old male who came in with progressive pain, swelling and redness involving the right leg from the knee down to the foot. Patient reports having low-grade fever. No chest pain or palpitation. No diarrhea, nausea or vomiting. Patient has a chronic ulceration of the left calf. Opioid HPI Opioid Management Most Recent Pain and Opioid Data: Last Pain Scale 5 Today, 11:07 Last Pain Assessment Today, 15:00 Last ORT Total Score 0 Today, 14:20 Last ORT Risk Category Low Risk Today, 14:20 Review of Systems ROS Status of ROS 10 or more systems reviewed and unremarkable except as noted in history and below [facility] Medical History (Updated 05/23/25 @ 16:07 by King Aragon MD) Poor historian ?Z78.9 - Other specified health status (ICD-10) Dyspnea ?R06.00 - Dyspnea, unspecified (ICD-10) Diabetes 1.5, managed as type 2 ?E13.9 - Other specified diabetes mellitus without complications (ICD-10) Former cigarette smoker ?Z87.891 - Personal history of nicotine dependence (ICD-10) Myocardial infarct ?I21.9 - Acute myocardial infarction, unspecified (ICD-10) COPD (chronic obstructive pulmonary disease) ?J44.9 - Chronic obstructive pulmonary disease, unspecified (ICD-10) Surgical History (Updated 05/23/25 @ 15:07 by Brenda Malik) Hx of appendectomy ?Z90.49 - Acquired absence of other specified parts of digestive tract (ICD-10) Total knee replacement status ?Z96.659 - Presence of unspecified artificial knee joint (ICD-10) Status post ablation of incompetent vein using laser ?Z98.890 - Other specified postprocedural states (ICD-10) Social History Highest level of school completed/degree received: high school graduate Little interest or pleasure in doing things: not at all Feeling down, depressed, or hopeless: not at all Meds Home Medications and Allergies Home Medications ?Medication ?Instructions ?Recorded ?Confirmed ?Type aspirin 81 mg chewable tablet 81 mg PO DAILY 05/23/25 05/23/25 History atorvastatin 40 mg tablet 40 mg PO .qhs 05/23/25 05/23/25 History carvedilol 12.5 mg tablet 12.5 mg PO Q12H 05/23/25 05/23/25 History celecoxib 200 mg capsule 200 mg PO Q24H 05/23/25 05/23/25 History ferrous sulfate 325 mg (65 mg 325 mg PO DAILY 05/23/25 05/23/25 History iron) tablet (FeroSul) fluticasone fur. 100 mcg-umeclid 1 inh inhalation Q24H 05/23/25 05/23/25 History 62.5 mcg-vilant 25 mcg inhalat.powder (Trelegy Ellipta) furosemide 40 mg tablet 40 mg PO QAM 05/23/25 05/23/25 History glipizide 5 mg tablet 2.5 mg PO QDAY 05/23/25 05/23/25 History isosorbide mononitrate 30 mg 30 mg PO QDAY 05/23/25 05/23/25 History tablet,extended release 24 hr spironolactone 25 mg tablet 12.5 mg PO QDAY 05/23/25 05/23/25 History Allergies Allergy/AdvReac Type Severity Reaction Status Date / Time No Known Drug Allergies Allergy Verified 05/23/25 10:46 Exam Narrative Exam Narrative: [pt is awake and alert. oriented to place, time and person, morbidly obese HEENT: [place] conjunctiva and NL buccal mucosa Neck: Supple, no tenderness Endocrine: No Thyromegaly. Vascular: No JVD or carotid bruit. Lymphatic: No cervical lymphadenopathy. Chest: CTA no DTP. Heart RRR, no extra sound or murmur. Abd: Soft, no tenderness, no rebound and no rigidity. Increase abd girth therefore clinically I could not exclude the possibility of intra abd mass or organomegaly. LE: No cyanosis or clubbing, no varices. Quite significant erythema, induration and tenderness involving the right leg from the knee down to the foot anteriorly, medially, laterally and posteriorly. Extensive nail fungal infection manifested by cracking, deformities and yellowish discoloration. Neuro: A A O. Nl speech, comprehension and attention. Nl and symetrical motor and tone examination through out. []] Constitutional Vital Signs, click to edit/add: Last Vital Signs Temp 98.0 F 05/23/25 14:33 Pulse 63 05/23/25 14:35 Resp 24 H 05/23/25 14:35 BP 101/61 05/23/25 14:35 Pulse Ox 95 05/23/25 14:35 O2 Del Method Room Air 05/23/25 14:35 Results Labs Labs: Short CBC 05/23/25 Range/Units 11:00 WBC 11.6 H (4.0-11.0) 10^3/uL Hgb 11.1 L (14.0-18.0) g/dL Hct 34.1 L (42.0-54.0) % Plt Count 218 (150-450) 10^3/uL BMP 05/23/25 11:00 Sodium 131 L Potassium 4.3 Chloride 98 Carbon Dioxide 24.7 BUN 44.0 H Creatinine 2.16 H Glucose 111 H Calcium 8.1 L Assessment and Plan Assessment and Plan (1) Cellulitis: Qualifiers: Laterality: right Site of cellulitis: extremity Site of cellulitis of extremity: lower extremity Qualified Code(s): L03.115 - Cellulitis of right lower limb (2) FREDA (acute kidney injury): (3) CKD (chronic kidney disease): (4) Sepsis: (5) CAD (coronary artery disease): (6) HTN (hypertension): (7) Diabetes: Plan Sepsis present on admission Extensive cellulitis involving the right leg. Palpable dorsalis pedis pulse I start patient on Zosyn and Zyvox Requested blood culture. Venous studies negative for DVT. Requested arterial study If no resolution of symptoms within 48 hours I would recommend CT leg rule out deep tissue abscess. FREDA/CKD This could be related to sepsis. This could be related to aggressive BP meds and diuretics. This could be related to infectious glomera nephritis This could be related to borderline hypotension and renal hypoperfusion, prerenal azotemia Requested UA to see if there is an RBC or proteinuria. Requested ultrasound rule out obstructive uropathy Hold the diuretics for 24 to 48 hours Gentle IV fluid infusion Discontinue Celebrex CAD. Previous angioplasty and CABG No active anginal chest pain Continue statin and beta-fitz as well as isosorbide Tobacco addiction ex-smoker Patient quit 5 years ago. Increased risk for lung cancer. Recommend outpatient yearly low-dose radiation CAT scan of the chest to screen for lung cancer to be raised by PCP. Diabetes Accu-Chek with a sliding scale coverage. Resume preadmission glipizide. 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 Requested iron study, ferritin and B12 Patient will likely require to have anemia workup to be done in the outpatient setting to be handled by PCP in collaboration with other needed outpatient providers. This may include but not limited to EGD, colonoscopy, referral to see hematology and other needed age-appropriate cancer screening. Chronic, subacute medical conditions not listed above, abnormal labs and imaging. These would need to be addressed. Could be addressed later on or in the outpatient setting by PCP collaboration with other needed outpatient providers when time and condition are appropriate.
[2025-05-23] MEDS: 0.9 % SODIUM CHLORIDE 1,000 ML 100 ML IV (16:16)
[2025-05-23 16:32] LABS: Lactate/Lactic Acid 1.4 mmol/L (0.4-2.0)
[2025-05-23] MEDS: PIPERACILLIN SODIUM/TAZOBACTAM 3.375 GM in 0.9 % SODIUM CHLORIDE 50 ML IV (17:58)
[2025-05-23] MEDS: FOLIC ACID 1 MG TABLET PO (17:58)
[2025-05-23] MEDS: THIAMINE HCL 200 MG/2 ML VIAL IVP (17:59)
[2025-05-23] MEDS: ALBUTEROL SULFATE 2.5 MG/3 ML VIAL NEB IH (18:33)
[2025-05-23] MEDS: BUDESONIDE 0.5 MG/2 ML AMPULE NEB IH (18:33)
[2025-05-23 18:34] VITALS: PULSE 68; O2SAT 92
[2025-05-23 19:32] LABS: Glucose Urine UA NEGATIVE (NEGATIVE)
[2025-05-23 19:38] LABS: Cast Seen? NONE SEEN #/LPF (NONE SEEN); Crystals Seen? None Seen #/HPF (None Seen)
[2025-05-23 20:49] VITALS: BP 173/75; PULSE 64; TEMP 36.9; O2SAT 91
[2025-05-23] MEDS: CARVEDILOL 12.5 MG TABLET 6.25 MG PO (21:08)
[2025-05-23] MEDS: ENOXAPARIN SODIUM 40 MG/0.4 ML SYRINGE SUBQ (21:08)
[2025-05-23] MEDS: INSULIN ASPART 300 UNIT/3 ML PEN SUBQ (21:09)
[2025-05-23] MEDS: ATORVASTATIN CALCIUM 40 MG TABLET PO (21:09)
[2025-05-23] MEDS: LINEZOLID 600 MG TABLET PO (21:09)
[2025-05-24] VITALS (11 sets, daily range): BP systolic 112–134; BP diastolic 65–77; PULSE 59–67; TEMP 36.5–37.1; O2SAT 90–97
[2025-05-24 02:04] LABS: A. calcoaceticus-baumannii Cpx NOT DETECTED (NOT DETECTE); Bacteroides fragilis NOT DETECTED (NOT DETECTE); Candida auris NOT DETECTED (NOT DETECTE); Candida glabrata NOT DETECTED (NOT DETECTE); Enterobacterales NOT DETECTED (NOT DETECTE); Enterococcus faecalis NOT DETECTED (NOT DETECTE); Enterococcus faecium NOT DETECTED (NOT DETECTE); Klebsiella aerogenes NOT DETECTED (NOT DETECTE); Klebsiella pneumoniae group NOT DETECTED (NOT DETECTE); Proteus spp. NOT DETECTED (NOT DETECTE); Salmonella spp. NOT DETECTED (NOT DETECTE); Serratia marcescens NOT DETECTED (NOT DETECTE); Staphylococcus epidermidis NOT DETECTED (NOT DETECTE); Staphylococcus lugdunensis NOT DETECTED (NOT DETECTE); Staphylococcus spp. NOT DETECTED (NOT DETECTE); Stenotrophomonas maltophilia NOT DETECTED (NOT DETECTE); Streptococcus pyogenes NOT DETECTED (NOT DETECTE); Streptococcus spp. NOT DETECTED (NOT DETECTE)
[2025-05-24] MEDS: PIPERACILLIN SODIUM/TAZOBACTAM 3.375 GM in 0.9 % SODIUM CHLORIDE 50 ML IV ×3 (02:57→17:39)
[2025-05-24] MEDS: ALBUTEROL SULFATE 2.5 MG/3 ML VIAL NEB IH ×4 (05:23→20:11)
[2025-05-24 05:39] LABS: Hematocrit 32.6 % (42.0-54.0); Hemoglobin 10.8 g/dL (14.0-18.0); Immature Granulocytes Abs Auto 0.12 10^3/uL (0.00-0.03); Immature Granulocytes Pct Auto 0.9 % (0.0-0.5); Lymphocytes Absolute Auto 1.0 10^3/uL (1.2-3.8); Mean Corpuscular HGB Conc 33.1 g/dL (29.9-35.2); Mean Corpuscular Hemoglobin 30.9 pg (25.9-34.0); Mean Corpuscular Volume 93.1 fL (80.0-94.0); Platelet Count 226 10^3/uL (150-450); Red Blood Count 3.50 10^6/uL (4.70-6.10); White Blood Count 13.9 10^3/uL (4.0-11.0)
[2025-05-24 05:58] LABS: Source BLD
[2025-05-24 06:07] LABS: Alanine Aminotransferase 21 U/L (16-63); Albumin Globulin Ratio 0.4; Albumin Level 2.2 g/dL (3.4-5.0); Alkaline Phosphatase 80 U/L (46-116); Anion Gap 12.2; Aspartate Amino Transferase 17 U/L (15-37); Blood Urea Nitrogen 38.0 mg/dL (7.0-18.0); Calcium 8.3 mg/dL (8.5-10.1); Carbon Dioxide 23.0 mmol/L (21.0-32.0); Chloride 101 mmol/L (98-107); Estimated GFR (African America 49 (>=60 mL/min/1.73m^2); Estimated GFR (Non-African Ame 41 (>=60 mL/min/1.73m^2); Globulin 5.6 g/dL; Glucose 109 mg/dL (74-106); Potassium 4.2 mmol/L (3.5-5.1); Sodium 132 mmol/L (136-145); Total Protein 7.8 g/dL (6.4-8.2)
[2025-05-24 06:30] LABS: Ferritin 887.0 ng/mL (26.0-388.0); Folate 6.60 ng/mL (8.60-58.90)
[2025-05-24 06:31] LABS: Iron 15.0 ug/dL (65.0-175.0); Percent Iron Saturation 9.6 %; Total Iron Binding Capacity 156.0 ug/dL (250.0-450.0)
--- NOTE | 2025-05-24 07:55 | CM.NOTE ---
Rounds made with Dr. Aragon, discussed with pt plan of care and diagnosis. Dr. Aragon clarified status as inpatient status. Continue IV antibiotic therapy. No discharge today.
[2025-05-24] MEDS: ENOXAPARIN SODIUM 40 MG/0.4 ML SYRINGE SUBQ ×2 (08:33→21:39)
[2025-05-24] MEDS: LINEZOLID 600 MG TABLET PO ×2 (08:33→21:39)
[2025-05-24] MEDS: CARVEDILOL 12.5 MG TABLET 6.25 MG PO ×2 (08:33→21:39)
[2025-05-24] MEDS: ISOSORBIDE MONONITRATE 30 MG TAB.ER.24H PO (08:33)
[2025-05-24] MEDS: FOLIC ACID 1 MG TABLET PO (08:33)
[2025-05-24] MEDS: THIAMINE MONONITRATE (VIT B1) 100 MG TABLET 200 MG PO (08:33)
[2025-05-24] MEDS: ASPIRIN 81 MG TAB.CHEW PO (08:33)
[2025-05-24] MEDS: BUDESONIDE 0.5 MG/2 ML AMPULE NEB IH ×2 (10:25→20:11)
--- NOTE | 2025-05-24 11:01 | P.PN_ITS ---
Progress Note: Subjective Subjective Interval history: Persistent pain, swelling and tenderness involving the right leg from the knee down to the toes. Exam Narrative Exam Narrative: [pt is awake and alert. oriented to place, time and person, morbidly obese HEENT: [place] conjunctiva and NL buccal mucosa Neck: Supple, no tenderness Endocrine: No Thyromegaly. Vascular: No JVD or carotid bruit. Lymphatic: No cervical lymphadenopathy. Chest: CTA no DTP. Heart RRR, no extra sound or murmur. Abd: Soft, no tenderness, no rebound and no rigidity. Increase abd girth therefore clinically I could not exclude the possibility of intra abd mass or organomegaly. LE: No cyanosis or clubbing, no varices. Quite significant and extensive erythema, induration and tenderness involving the right leg from the knee down to the foot anteriorly, medially, laterally and posteriorly. Extensive nail fungal infection manifested by cracking, deformities and yellowish discoloration. Neuro: A A O. Nl speech, comprehension and attention. Nl and symetrical motor and tone examination through out. []] Constitutional Vital Signs, click to edit/add: Last Vital Signs Temp 98 F 05/24/25 07:54 Pulse 67 05/24/25 10:27 Resp 18 05/24/25 07:54 BP 112/70 05/24/25 07:54 Pulse Ox 92 L 05/24/25 10:27 O2 Del Method Room Air 05/24/25 10:27 Progress Note: Objective Labs Labs: Short CBC 05/23/25 05/24/25 Range/Units 11:00 05:06 WBC 11.6 H 13.9 H (4.0-11.0) 10^3/uL Hgb 11.1 L 10.8 L (14.0-18.0) g/dL Hct 34.1 L 32.6 L (42.0-54.0) % Plt Count 218 226 (150-450) 10^3/uL BMP 05/23/25 05/24/25 11:00 05:06 Sodium 131 L 132 L Potassium 4.3 4.2 Chloride 98 101 Carbon Dioxide 24.7 23.0 BUN 44.0 H 38.0 H Creatinine 2.16 H 1.64 H Glucose 111 H 109 H Calcium 8.1 L 8.3 L Liver Function 05/24/25 Range/Units 05:06 Total Bilirubin 0.9 (0.2-1.0) mg/dL AST 17 (15-37) U/L ALT 21 (16-63) U/L Alkaline Phosphatase 80 (46-116) U/L Albumin 2.2 L (3.4-5.0) g/dL Urine 05/23/25 Range/Units 18:50 Urine Color Yellow (YELLOW) Urine Clarity Clear (CLEAR) Urine pH 6.0 (5.0-9.0) Ur Specific [place] 1.015 (1.005-1.025) Urine Protein Trace (NEG/TRACE) mg/dL Urine Glucose (UA) Negative (NEGATIVE) mg/dL Progress Note: A&P Assessment and Plan (1) Cellulitis: Qualifiers: Laterality: right Site of cellulitis: extremity Site of cellulitis of extremity: lower extremity Qualified Code(s): L03.115 - Cellulitis of right lower limb (2) FREDA (acute kidney injury): (3) CKD (chronic kidney disease): (4) Sepsis: (5) CAD (coronary artery disease): (6) HTN (hypertension): (7) Diabetes: Plan Sepsis present on admission Extensive cellulitis involving the right leg. Erythema, induration and tenderness involving the anterior, medial, lateral and posterior leg from the knee down to the ankle as well as the dorsal foot. Palpable dorsalis pedis pulse I start patient on Zosyn and Zyvox. Blood pressure much covers everything except ESBL which is less likely. Requested blood culture. Pending Venous studies negative for DVT. Requested arterial study this came back positive for peripheral vascular disease. 50% stenosis in the distal right anterior tibial artery. Moderate peripheral vascular disease otherwise. Patient may need CT angio. Unfortunately patient developed acute on chronic kidney failure and at risk having contrast nephropathy. Hold off on contrasted vascular evaluation at this time moderate CTA or angiogram. Requested regular CT without any contrast to rule out deep tissue abscess. I do anticipate that patient will require long-term IV antibiotic for the next several weeks given the severity of his infection. FREDA/CKD This could be related to sepsis. This could be related to aggressive BP meds and diuretics. This could be related to infectious glomera nephritis This could be related to borderline hypotension and renal hypoperfusion, prerenal azotemia Requested UA to see if there is an RBC or proteinuria. UA does not show RBC or protein to suggest glomerulonephritis Requested ultrasound rule out obstructive uropathy. Ultrasound is negative for obstructive uropathy. Hold the diuretics for 24 to 48 hours Gentle IV fluid infusion has been completed Discontinued Celebrex CAD. Previous angioplasty and CABG No active anginal chest pain Continue statin and beta-fitz as well as isosorbide Tobacco addiction ex-smoker Patient quit 5 years ago. Increased risk for lung cancer. Recommend outpatient yearly low-dose radiation CAT scan of the chest to screen for lung cancer to be raised by PCP. Diabetes Accu-Chek with a sliding scale coverage. Resume preadmission glipizide. 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 Requested iron study, ferritin and B12 Patient will likely require to have anemia workup to be done in the outpatient setting to be handled by PCP in collaboration with other needed outpatient providers. This may include but not limited to EGD, colonoscopy, referral to see hematology and other needed age-appropriate cancer screening. Chronic, subacute medical conditions not listed above, abnormal labs and imaging. These would need to be addressed. Could be addressed later on or in the outpatient setting by PCP collaboration with other needed outpatient providers when time and condition are appropriate.
--- NOTE | 2025-05-24 11:05 | CT_ITS ---
The [address] [address] Patient Name: ARIANNE MCQUEEN MRN: [id number] date: 1945 Sex: M Assigned Patient Location: [place] Current Patient Location: [place] Accession/Order Number: [id number] Exam Date: 05/24/2025 11:30 Report Date: 05/24/2025 19:32 At the request of: JHOAN SYED MD Procedure: CT lower leg RT wo con CT lower leg RT wo con 05/24/2025 11:39 AM SIGNS AND SYMPTOMS: ^Please CAT scan the leg from the knee down to the distal ^Extensive cellulitis, rule out deep tissue abscess TECHNIQUE: Multidetector CT axial slices of the right lower leg without IV contrast. Multiplanar reformats were performed and viewed on a separate workstation and reviewed to further define anatomy and possible pathology. CT was performed with one or more of the following dose reduction techniques: Automated exposure control, adjustment of the mA and/or kV according to patient size, or use of iterative reconstruction technique. COMPARISON: None. FINDINGS: There is total right knee arthroplasty hardware without hardware complication. No osteolytic or bony destructive process to suggest osteomyelitis. Plantar and Achilles surface calcaneal spurring is noted. No acute bony injury. There is diffuse soft tissue swelling. There is focal fluid collection in the immediate subcutaneous soft tissues over the dorsum of the foot. This measures 2.1 cm in greatest longitudinal dimension by 1.6 cm in thickness. This is along the lateral aspect of the dorsum of the fluid extending towards the anterior aspect of the ankle. No evidence of deep soft tissue abscess. There is fatty atrophy of the musculature of the lower leg with vascular calcification is throughout the soft tissues. CT/CT lower leg RT wo con IMPRESSION: There is diffuse soft tissue swelling consistent with cellulitis. There is focal fluid collection in the immediate subcutaneous soft tissues over the dorsum of the foot. This measures 2.1 cm in greatest longitudinal dimension by 1.6 cm in thickness. This is along the lateral aspect of the dorsum of the fluid extending towards the anterior aspect of the ankle. No evidence of deep soft tissue abscess. No evidence of osteomyelitis. Impression dictated by: Wyatt Guzman M.D. 05/24/2025 7:32 PM Dictation Location: [place] [address] Electronically authenticated by: [id number] Y Date: 05/24/2025 19:32
--- NOTE | 2025-05-24 12:02 | SWNOTE1 ---
SW met with pt to discuss dc needs. Pt lives at home by himself. Pt does have neighbors and friends that do check on him and assist as needed. Pt does have a cane at home that he does use when needed. [facility] nurse is coming in for wound care, MANDA called [facility] and spoke with Layla and she confirmed nurse is coming in for wound care. At this time pt voiced no anticipated discharge needs. SW to follow as needed.
--- NOTE | 2025-05-24 12:04 | SWNOTE1 ---
Important Message from [employer] reviewed and discussed with patient. Pt. verbalized understanding and signed the form. Original given to patient and copy placed in patient?s chart.
--- NOTE | 2025-05-24 13:03 | SWNOTE1 ---
MANDA faxed physician notes, face sheet, and nursing wound care note to [facility] . MANDA requested [facility] fax back wound care orders that are being done in the home.
[2025-05-24] MEDS: INSULIN ASPART 300 UNIT/3 ML PEN SUBQ ×2 (13:07→16:18)
--- NOTE | 2025-05-24 15:00 | W.PM.WC ---
Wound Consult Note Assessment and Plan (1) Cellulitis: Reason for Consult: right foot blister, LLE venous ulcers Assessment and Plan: Patient was seen yesterday (05.23.25) in outpatient wound center for scheduled appointment for evaluation of LLE ulcers. LLE ulcers healing well, however, he presented with new onset right leg pain, redness, swelling, and not feeling well. Evaluated by Gena Drew PA-C and patient was encouraged to present to ER for urgent evaluation of RLE. Qualifiers: Laterality: right Site of cellulitis: extremity Site of cellulitis of extremity: lower extremity Qualified Code(s): L03.115 - Cellulitis of right lower limb (2) FREDA (acute kidney injury): (3) CKD (chronic kidney disease): (4) Sepsis: (5) CAD (coronary artery disease): (6) HTN (hypertension): (7) Diabetes: Plan Consulted to see patient today for new right dorsal foot blister that bedside RN states hospitalist wants to be evacuated and cultured. Overall leg looks better today then yesterday at wound center. Erythema continues to extended from toes to knee, but edema is improved and skin not as dark in color. Blistered skin cleansed and sterile suture kit used to break open blister. Culture obtained and given to bedside RN for testing. Blistered drained with minimal discomfort until flat. Covered area with xeroform gauze and 4x4s. Secured with kerlix and joel wrap compression. Patient reports bedside RN did change dressing yesterday using xeroform gauze. Will continue same treatment while in hospital changing 3x weekly. Will change right foot daily and as needed for drainage. Please call [phone] with any questions or concerns. John Mcneill, RN, CWON
--- NOTE | 2025-05-24 15:11 | SWNOTE1 ---
MANDA received Home health care orders from [facility]. MANDA provided to case management and the pt's nurse. Copy placed on chart.
[2025-05-24] MEDS: 0.9 % SODIUM CHLORIDE 250 ML 10 ML IV (17:38)
[2025-05-24] MEDS: ATORVASTATIN CALCIUM 40 MG TABLET PO (21:39)
[2025-05-25] VITALS (9 sets, daily range): BP systolic 126–152; BP diastolic 65–80; PULSE 54–72; TEMP 36.3–36.6; O2SAT 90–94
[2025-05-25] MEDS: PIPERACILLIN SODIUM/TAZOBACTAM 3.375 GM in 0.9 % SODIUM CHLORIDE 50 ML IV ×3 (03:21→17:51)
[2025-05-25] MEDS: ALBUTEROL SULFATE 2.5 MG/3 ML VIAL NEB IH ×4 (04:42→20:01)
[2025-05-25 05:55] LABS: Anion Gap 13.7; Blood Urea Nitrogen 27.0 mg/dL (7.0-18.0); Calcium 8.3 mg/dL (8.5-10.1); Carbon Dioxide 21.6 mmol/L (21.0-32.0); Chloride 104 mmol/L (98-107); Estimated GFR (African America 59 (>=60 mL/min/1.73m^2); Estimated GFR (Non-African Ame 49 (>=60 mL/min/1.73m^2); Glucose 113 mg/dL (74-106); Potassium 4.3 mmol/L (3.5-5.1); Sodium 135 mmol/L (136-145)
[2025-05-25 08:09] LABS: Vitamin B12 715 pg/mL (232-1245)
[2025-05-25] MEDS: ACETAMINOPHEN 325 MG TABLET 650 MG PO (08:43)
[2025-05-25] MEDS: FOLIC ACID 1 MG TABLET PO (08:43)
[2025-05-25] MEDS: ISOSORBIDE MONONITRATE 30 MG TAB.ER.24H PO (08:43)
[2025-05-25] MEDS: ASPIRIN 81 MG TAB.CHEW PO (08:43)
[2025-05-25] MEDS: THIAMINE MONONITRATE (VIT B1) 100 MG TABLET 200 MG PO (08:43)
[2025-05-25] MEDS: CARVEDILOL 12.5 MG TABLET 6.25 MG PO ×2 (08:43→21:36)
[2025-05-25] MEDS: ENOXAPARIN SODIUM 40 MG/0.4 ML SYRINGE SUBQ ×2 (08:44→21:36)
[2025-05-25] MEDS: LINEZOLID 600 MG TABLET PO ×2 (08:44→21:36)
[2025-05-25] MEDS: 0.9 % SODIUM CHLORIDE 250 ML 10 ML IV (09:59)
[2025-05-25] MEDS: BUDESONIDE 0.5 MG/2 ML AMPULE NEB IH ×2 (10:39→20:01)
--- NOTE | 2025-05-25 11:09 | PM.PN ---
Progress Note: Subjective Subjective Interval history: Persistent pain, swelling and tenderness involving the right leg from the knee down to the toes. Patient reports that his pain and discomfort is slightly better than yesterday. Exam Narrative Exam Narrative: [pt is awake and alert. oriented to place, time and person, morbidly obese HEENT: [place] conjunctiva and NL buccal mucosa Neck: Supple, no tenderness Endocrine: No Thyromegaly. Vascular: No JVD or carotid bruit. Lymphatic: No cervical lymphadenopathy. Chest: CTA no DTP. Heart RRR, no extra sound or murmur. Abd: Soft, no tenderness, no rebound and no rigidity. Increase abd girth therefore clinically I could not exclude the possibility of intra abd mass or organomegaly. LE: No cyanosis or clubbing, no varices. Quite significant and extensive but slightly improved erythema, induration and tenderness involving the right leg from the knee down to the foot anteriorly, medially, laterally and posteriorly. Extensive nail fungal infection manifested by cracking, deformities and yellowish discoloration. Neuro: A A O. Nl speech, comprehension and attention. Nl and symetrical motor and tone examination through out. []] Constitutional Vital Signs, click to edit/add: Last Vital Signs Temp 97.9 F 05/25/25 07:35 Pulse 61 05/25/25 10:41 Resp 18 05/25/25 07:35 BP 128/80 05/25/25 07:35 Pulse Ox 93 L 05/25/25 10:41 O2 Del Method Room Air 05/25/25 10:41 Progress Note: Objective Labs Labs: [facility] 05/25/25 05:11 Sodium 135 L Potassium 4.3 Chloride 104 Carbon Dioxide 21.6 BUN 27.0 H Creatinine 1.40 H Glucose 113 H Calcium 8.3 L Progress Note: A&P Assessment and Plan (1) Cellulitis: Qualifiers: Laterality: right Site of cellulitis: extremity Site of cellulitis of extremity: lower extremity Qualified Code(s): L03.115 - Cellulitis of right lower limb (2) FREDA (acute kidney injury): (3) CKD (chronic kidney disease): (4) Sepsis: (5) CAD (coronary artery disease): (6) HTN (hypertension): (7) Diabetes: Plan Sepsis present on admission Extensive cellulitis involving the right leg. Erythema, induration and tenderness involving the anterior, medial, lateral and posterior leg from the knee down to the ankle as well as the dorsal foot. Palpable dorsalis pedis pulse Dopplerable dorsalis pedis pulse Slight improvement of erythema, induration and pain objectively and subjectively. Continue Zosyn and Zyvox. Requested blood culture. Pending Venous studies negative for DVT. Requested arterial study this came back positive for peripheral vascular disease. 50% stenosis in the distal right anterior tibial artery. Moderate peripheral vascular disease otherwise. No clinical evidence of acute arterial compromise. Strong dopplerable dorsalis pedis pulse. Patient may need CT angio. Unfortunately patient developed acute on chronic kidney failure and at risk having contrast nephropathy. Hold off on contrasted vascular evaluation at this time moderate CTA or angiogram. Requested regular CT without any contrast to rule out deep tissue abscess. This came back negative for abscess but significant cellulitis. Fluid collection at the dorsal aspect of the foot. Patient had bullous formation there yesterday which is seen on CT. This bullous formation had been drained by wound care. I do anticipate that patient will require long-term IV antibiotic for the next several weeks given the severity of his infection. FREDA/CKD This could be related to sepsis. This could be related to aggressive BP meds and diuretics. This could be related to infectious glomera nephritis This could be related to borderline hypotension and renal hypoperfusion, prerenal azotemia Requested UA to see if there is an RBC or proteinuria. UA does not show RBC or protein to suggest glomerulonephritis Requested ultrasound rule out obstructive uropathy. Ultrasound is negative for obstructive uropathy. Discontinue of NSAID medication. Avoid nephrotoxic drugs Kidney function continues to improve. CAD. Previous angioplasty and CABG No active anginal chest pain Continue statin and beta-fitz as well as isosorbide Tobacco addiction ex-smoker Patient quit 5 years ago. Increased risk for lung cancer. Recommend outpatient yearly low-dose radiation CAT scan of the chest to screen for lung cancer to be raised by PCP. Diabetes Accu-Chek with a sliding scale coverage. 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 Requested iron study, ferritin and B12. Folate is low. Start patient on full deficiency. Also start patient on iron supplementation Patient will likely require to have anemia workup to be done in the outpatient setting to be handled by PCP in collaboration with other needed outpatient providers. This may include but not limited to EGD, colonoscopy, referral to see hematology and other needed age-appropriate cancer screening. Chronic, subacute medical conditions not listed above, abnormal labs and imaging. These would need to be addressed. Could be addressed later on or in the outpatient setting by PCP collaboration with other needed outpatient providers when time and condition are appropriate.
--- NOTE | 2025-05-25 11:31 | SWNOTE1 ---
MANDA faxed updates to [facility]. Updates included wound care, physician note, wound consult, and diagnostic imaging. MANDA did advise [facility] there is a possibility of IV antibiotics at discharge.
[2025-05-25] MEDS: DEXAMETHASONE SOD PHOS 10 MG/ML VIAL IV (11:56)
[2025-05-25] MEDS: FERROUS SULFATE 325 MG TABLET PO ×2 (11:57→21:36)
[2025-05-25] MEDS: FUROSEMIDE 40 MG/4 ML VIAL IVP (11:57)
[2025-05-25] MEDS: KETOROLAC TROMETHAMINE 30 MG/ML VIAL 15 MG IVP ×2 (11:58→17:51)
--- NOTE | 2025-05-25 12:43 | CM.NOTE ---
[address] Aragon for rounds. Plan for terminal block assembler IV antibiodics at discharge. Dr. Aragon will assess wound on right lower leg when nursing changes dressing.
[2025-05-25] MEDS: INSULIN ASPART 300 UNIT/3 ML PEN SUBQ ×2 (16:32→21:35)
[2025-05-25] MEDS: ATORVASTATIN CALCIUM 40 MG TABLET PO (21:36)
[2025-05-26] VITALS (10 sets, daily range): BP systolic 116–154; BP diastolic 56–90; PULSE 55–600; TEMP 36.3–36.6; O2SAT 90–95
[2025-05-26] MEDS: PIPERACILLIN SODIUM/TAZOBACTAM 3.375 GM in 0.9 % SODIUM CHLORIDE 50 ML IV ×3 (02:59→17:53)
[2025-05-26] MEDS: ALBUTEROL SULFATE 2.5 MG/3 ML VIAL NEB IH ×2 (05:29→10:06)
[2025-05-26 06:01] LABS: Hematocrit 33.2 % (42.0-54.0); Hemoglobin 10.8 g/dL (14.0-18.0); Mean Corpuscular HGB Conc 32.5 g/dL (29.9-35.2); Mean Corpuscular Hemoglobin 31.0 pg (25.9-34.0); Mean Corpuscular Volume 95.4 fL (80.0-94.0); Platelet Count 273 10^3/uL (150-450); Red Blood Count 3.48 10^6/uL (4.70-6.10); White Blood Count 10.5 10^3/uL (4.0-11.0)
[2025-05-26 06:21] LABS: Anion Gap 13.5; Blood Urea Nitrogen 28.0 mg/dL (7.0-18.0); Calcium 8.6 mg/dL (8.5-10.1); Carbon Dioxide 21.4 mmol/L (21.0-32.0); Chloride 103 mmol/L (98-107); Estimated GFR (African America 54 (>=60 mL/min/1.73m^2); Estimated GFR (Non-African Ame 44 (>=60 mL/min/1.73m^2); Glucose 157 mg/dL (74-106); Potassium 4.9 mmol/L (3.5-5.1); Sodium 133 mmol/L (136-145)
--- NOTE | 2025-05-26 07:50 | CM.NOTE ---
Rounds made with Dr. Aragon, discussed plan of care with pt. No discharge today, discussed with pt need for custodial IV antibiotic therapy. Home Health vs outpt [facility], will discuss further closer to discharge.
[2025-05-26] MEDS: ASPIRIN 81 MG TAB.CHEW PO (09:15)
[2025-05-26] MEDS: SENNOSIDES/DOCUSATE SODIUM 1 TAB TABLET PO (09:15)
[2025-05-26] MEDS: ACETAMINOPHEN 325 MG TABLET 650 MG PO (09:15)
[2025-05-26] MEDS: LINEZOLID 600 MG TABLET PO ×2 (09:15→22:09)
[2025-05-26] MEDS: FERROUS SULFATE 325 MG TABLET PO ×2 (09:15→22:09)
[2025-05-26] MEDS: ENOXAPARIN SODIUM 40 MG/0.4 ML SYRINGE SUBQ ×2 (09:15→22:08)
[2025-05-26] MEDS: FOLIC ACID 1 MG TABLET PO (09:15)
[2025-05-26] MEDS: CARVEDILOL 12.5 MG TABLET 6.25 MG PO ×2 (09:16→22:08)
[2025-05-26] MEDS: ISOSORBIDE MONONITRATE 30 MG TAB.ER.24H PO (09:16)
[2025-05-26] MEDS: THIAMINE MONONITRATE (VIT B1) 100 MG TABLET 200 MG PO (09:16)
[2025-05-26] MEDS: INSULIN ASPART 300 UNIT/3 ML PEN SUBQ ×3 (09:17→22:09)
--- NOTE | 2025-05-26 09:49 | P.PN_ITS ---
Progress Note: Subjective Subjective Interval history: Persistent pain, swelling and tenderness involving the right leg from the knee down to the toes. Patient reports that his pain and discomfort is slightly better than admission. Exam Narrative Exam Narrative: [pt is awake and alert. oriented to place, time and person, morbidly obese HEENT: [place] conjunctiva and NL buccal mucosa Neck: Supple, no tenderness Endocrine: No Thyromegaly. Vascular: No JVD or carotid bruit. Lymphatic: No cervical lymphadenopathy. Chest: CTA no DTP. Heart RRR, no extra sound or murmur. Abd: Soft, no tenderness, no rebound and no rigidity. Increase abd girth therefore clinically I could not exclude the possibility of intra abd mass or organomegaly. LE: No cyanosis or clubbing, no varices. Quite significant and extensive but slightly improved erythema, induration and tenderness involving the right leg from the knee down to the foot anteriorly, medially, laterally and posteriorly. Extensive nail fungal infection manifested by cracking, deformities and yellowish discoloration. 05/26: Gradual daily improvement of erythema, induration and tenderness compared to admission state. Neuro: A A O. Nl speech, comprehension and attention. Nl and symetrical motor and tone examination through out. []] Constitutional Vital Signs, click to edit/add: Last Vital Signs Temp 97.5 F L 05/26/25 08:55 Pulse 60 05/26/25 08:55 Resp 18 05/26/25 08:55 BP 152/84 H 05/26/25 08:55 Pulse Ox 95 05/26/25 08:55 O2 Del Method Room Air 05/26/25 08:55 Progress Note: Objective Labs Labs: Short CBC 05/26/25 Range/Units 05:22 WBC 10.5 (4.0-11.0) 10^3/uL Hgb 10.8 L (14.0-18.0) g/dL Hct 33.2 L (42.0-54.0) % Plt Count 273 (150-450) 10^3/uL BMP 05/26/25 05:22 Sodium 133 L Potassium 4.9 Chloride 103 Carbon Dioxide 21.4 BUN 28.0 H Creatinine 1.52 H Glucose 157 H Calcium 8.6 Progress Note: A&P Assessment and Plan (1) Cellulitis: Qualifiers: Laterality: right Site of cellulitis: extremity Site of cellulitis of extremity: lower extremity Qualified Code(s): L03.115 - Cellulitis of right lower limb (2) FREDA (acute kidney injury): (3) CKD (chronic kidney disease): (4) Sepsis: (5) CAD (coronary artery disease): (6) HTN (hypertension): (7) Diabetes: Plan Sepsis present on admission Extensive cellulitis involving the right leg. Erythema, induration and tenderness involving the anterior, medial, lateral and posterior leg from the knee down to the ankle as well as the dorsal foot. Palpable dorsalis pedis pulse Dopplerable dorsalis pedis pulse Slight improvement of erythema, induration and pain objectively and subjectively. CRP is trending down. 22.07 down to 9.12 Continue Zosyn and Zyvox. Requested blood culture. Negative thus far. Venous studies negative for DVT. Requested arterial study this came back positive for peripheral vascular disease. 50% stenosis in the distal right anterior tibial artery. Moderate peripheral vascular disease otherwise. No clinical evidence of acute arterial compromise. Strong dopplerable dorsalis pedis pulse. Patient may need CT angio. Unfortunately patient developed acute on chronic kidney failure and at risk having contrast nephropathy. Hold off on contrasted vascular evaluation at this time moderate CTA or angiogram. Requested regular CT without any contrast to rule out deep tissue abscess. This came back negative for abscess but significant cellulitis. Fluid collection at the dorsal aspect of the foot. Patient had bullous formation which is seen on CT. This bullous formation had been drained by wound care. I do anticipate that patient will require long-term IV antibiotic for the next several weeks given the severity of his infection. FREDA/CKD This could be related to sepsis. This could be related to aggressive BP meds and diuretics. This could be related to infectious glomera nephritis This could be related to borderline hypotension and renal hypoperfusion, prerenal azotemia Requested UA to see if there is an RBC or proteinuria. UA does not show RBC or protein to suggest glomerulonephritis Requested ultrasound rule out obstructive uropathy. Ultrasound is negative for obstructive uropathy. Discontinue of NSAID medication. Avoid nephrotoxic drugs Kidney function continues to improve. CAD. Previous angioplasty and CABG No active anginal chest pain Continue statin and beta-fitz as well as isosorbide Tobacco addiction ex-smoker Patient quit 5 years ago. Increased risk for lung cancer. Recommend outpatient yearly low-dose radiation CAT scan of the chest to screen for lung cancer to be raised by PCP. Diabetes Accu-Chek with a sliding scale coverage. Resumed home glipizide 2.5 mg daily. 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 Requested iron study, ferritin and B12. Folate is low. Start patient on full deficiency. Also start patient on iron supplementation Patient will likely require to have anemia workup to be done in the outpatient setting to be handled by PCP in collaboration with other needed outpatient providers. This may include but not limited to EGD, colonoscopy, referral to see hematology and other needed age-appropriate cancer screening. Chronic, subacute medical conditions not listed above, abnormal labs and imaging. These would need to be addressed. Could be addressed later on or in the outpatient setting by PCP collaboration with other needed outpatient providers when time and condition are appropriate.
[2025-05-26] MEDS: BUDESONIDE 0.5 MG/2 ML AMPULE NEB IH ×2 (10:06→20:50)
--- NOTE | 2025-05-26 10:37 | SWNOTE1 ---
MANDA faxed updated physician note, wound care, and labs to [facility]
[2025-05-26] MEDS: FUROSEMIDE 40 MG/4 ML VIAL IVP (10:48)
[2025-05-26] MEDS: glipiZIDE 2.5 MG TAB.ER.24 PO (10:48)
[2025-05-26] MEDS: IPRATROPIUM/ALBUTEROL SULFATE 3 ML AMPUL.NEB IH (20:50)
[2025-05-26] MEDS: ATORVASTATIN CALCIUM 40 MG TABLET PO (22:09)
[2025-05-27] VITALS (8 sets, daily range): BP systolic 112–163; BP diastolic 69–82; PULSE 52–66; TEMP 36.4–36.6; O2SAT 91–94
[2025-05-27] MEDS: PIPERACILLIN SODIUM/TAZOBACTAM 3.375 GM in 0.9 % SODIUM CHLORIDE 50 ML IV ×3 (02:31→17:23)
[2025-05-27] MEDS: ENOXAPARIN SODIUM 40 MG/0.4 ML SYRINGE SUBQ ×2 (08:39→21:25)
[2025-05-27] MEDS: CARVEDILOL 12.5 MG TABLET 6.25 MG PO (08:40)
[2025-05-27] MEDS: ISOSORBIDE MONONITRATE 30 MG TAB.ER.24H PO (08:41)
[2025-05-27] MEDS: LINEZOLID 600 MG TABLET PO ×2 (08:41→21:25)
[2025-05-27] MEDS: glipiZIDE 2.5 MG TAB.ER.24 PO (08:41)
[2025-05-27] MEDS: ASPIRIN 81 MG TAB.CHEW PO (08:41)
[2025-05-27] MEDS: THIAMINE MONONITRATE (VIT B1) 100 MG TABLET 200 MG PO (08:41)
[2025-05-27] MEDS: FOLIC ACID 1 MG TABLET PO (08:41)
[2025-05-27] MEDS: FERROUS SULFATE 325 MG TABLET PO ×2 (08:41→21:25)
[2025-05-27] MEDS: TORSEMIDE 20 MG TABLET PO (08:44)
[2025-05-27] MEDS: BUDESONIDE 0.5 MG/2 ML AMPULE NEB IH ×2 (09:01→20:23)
[2025-05-27] MEDS: IPRATROPIUM/ALBUTEROL SULFATE 3 ML AMPUL.NEB IH ×2 (09:01→20:23)
--- NOTE | 2025-05-27 11:43 | P.PN_ITS ---
Progress Note: Subjective Subjective Interval history: Patient notes that he got a shower this morning and then after that the nursing staff wrapped up his legs with Kurt wrap's from the toes up to the knees. He says that on the top of his right foot he has a blister. His sleep apnea machine from home is on the bedside table. The patient is out of bed and sitting in a chair. He admits to a little bit of loose bowel movements but no ade diarrhea. No abdominal pain. No fevers chills. No cough. No anginal chest pain. Exam Narrative Exam Narrative: General: Sitting out of bed into bedside chair. Pulmonary: Clear to auscultation throughout. No wheezing. No rhonchi. No crackles. Cardio: Regular rate and rhythm. No rubs or gallops to auscultation. GI: Abdomen soft, normal bowel sounds to auscultation. Abdomen is very protuberant. His BMI is 46.6. Lower extremities: Both lower extremities are wrapped from the toes up to the knees with an Kurt wrap. The cellulitis is not extending above the marked line on his right knee. 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 Erythema, induration and tenderness involving the anterior, medial, lateral and posterior leg from the knee down to the ankle as well as the dorsal foot. Palpable dorsalis pedis pulse Dopplerable dorsalis pedis pulse Slight improvement of erythema, induration and pain objectively and subjectively. CRP is trending down. 22.07 down to 9.12 Continue Zosyn and Zyvox. Blood culture is negative thus far. Venous studies negative for DVT. Arterial study this came back positive for peripheral vascular disease. 50% stenosis in the distal right anterior tibial artery. Moderate peripheral vascular disease otherwise. No clinical evidence of acute arterial compromise. Strong dopplerable dorsalis pedis pulse. Patient may need CT angio. Unfortunately patient developed acute on chronic kidney failure and at risk having contrast nephropathy. Hold off on contrasted vascular evaluation at this time moderate CTA or angiogram. Requested regular CT without any contrast to rule out deep tissue abscess. This came back negative for abscess but significant cellulitis. Fluid collection at the dorsal aspect of the foot. Patient had bullous formation which is seen on CT. This bullous formation had been drained by wound care. I do anticipate that patient will require long-term IV antibiotic for the next several weeks given the severity of his infection. Acute kidney injury on top of chronic kidney disease. Present on admission. This is DUE TO the sepsis. This could be related to infectious glomera nephritis This could be related to borderline hypotension and renal hypoperfusion, pr erenal azotemia UA does not show RBC or protein to suggest glomerulonephritis Renal Ultrasound is negative for obstructive uropathy. Discontinue of NSAID medication. Avoid nephrotoxic drugs Kidney function continues to improve, slowly, and is stable on a day to day basis. CAD. Previous angioplasty and CABG No active anginal chest pain Continue statin and beta-fitz as well as isosorbide Tobacco addiction ex-smoker Patient quit 5 years ago. Increased risk for lung cancer. Recommend outpatient yearly low-dose radiation CAT scan of the chest to screen for lung cancer to be raised by PCP. Diabetes Accu-Chek with a sliding scale coverage. Resumed home glipizide 2.5 mg daily. COPD, no exacerbation Continue Trelegy Saturation 95% on room air Morbid obesity Diet, exercise and lifestyle modification counseling Obstructive sleep apnea. Pt should use his home sleep apnea machine all night, and for any naps during the day. DVT prophylaxis Lovenox subcu 40 mg twice a day Daily alcohol consumption Suspect alcohol dependency Started patient on folic acid and thiamine Watch for alcohol withdrawal syndrome Anemia, no evidence of acute blood loss. Folic acid deficiency Iron deficiency Started on folic acid, and iron tablet that he takes once daily at home is increased to twice daily. Patient will likely require to have anemia workup to be done in the outpatient setting to be handled by PCP in collaboration with other needed outpatient providers. This may include but not limited to EGD, colonoscopy, referral to see hematology and other needed age-appropriate cancer screening. Chronic, subacute medical conditions not listed above, abnormal labs and imaging. These would need to be addressed. Could be addressed later on or in the outpatient setting by PCP collaboration with other needed outpatient providers when time and condition are appropriate.
[2025-05-27] MEDS: INSULIN ASPART 300 UNIT/3 ML PEN SUBQ ×2 (11:50→21:25)
[2025-05-27] MEDS: SPIRONOLACTONE 25 MG TABLET 12.5 MG PO (11:56)
[2025-05-27] MEDS: 0.9 % SODIUM CHLORIDE 250 ML 10 ML IV (17:23)
[2025-05-27] MEDS: CARVEDILOL 6.25 MG TABLET PO (21:25)
[2025-05-27] MEDS: ATORVASTATIN CALCIUM 40 MG TABLET PO (21:25)
[2025-05-28] MEDS: PIPERACILLIN SODIUM/TAZOBACTAM 3.375 GM in 0.9 % SODIUM CHLORIDE 50 ML IV ×3 (01:43→17:02)
[2025-05-28 03:22] VITALS: BP 147/54; PULSE 58; TEMP 36.6; O2SAT 92
[2025-05-28 06:53] LABS: Hematocrit 36.9 % (42.0-54.0); Hemoglobin 11.7 g/dL (14.0-18.0); Immature Granulocytes Abs Auto 0.13 10^3/uL (0.00-0.03); Immature Granulocytes Pct Auto 1.6 % (0.0-0.5); Lymphocytes Absolute Auto 1.2 10^3/uL (1.2-3.8); Mean Corpuscular HGB Conc 31.7 g/dL (29.9-35.2); Mean Corpuscular Hemoglobin 30.4 pg (25.9-34.0); Mean Corpuscular Volume 95.8 fL (80.0-94.0); Platelet Count 366 10^3/uL (150-450); Red Blood Count 3.85 10^6/uL (4.70-6.10); White Blood Count 7.9 10^3/uL (4.0-11.0)
[2025-05-28 07:04] LABS: Alanine Aminotransferase 31 U/L (16-63); Albumin Globulin Ratio 0.4; Albumin Level 2.5 g/dL (3.4-5.0); Alkaline Phosphatase 64 U/L (46-116); Anion Gap 13.9; Aspartate Amino Transferase 28 U/L (15-37); Blood Urea Nitrogen 30.0 mg/dL (7.0-18.0); Calcium 8.6 mg/dL (8.5-10.1); Carbon Dioxide 23.4 mmol/L (21.0-32.0); Chloride 103 mmol/L (98-107); Estimated GFR (African America 50 (>=60 mL/min/1.73m^2); Estimated GFR (Non-African Ame 41 (>=60 mL/min/1.73m^2); Globulin 5.7 g/dL; Glucose 102 mg/dL (74-106); Potassium 4.3 mmol/L (3.5-5.1); Sodium 136 mmol/L (136-145); Total Protein 8.2 g/dL (6.4-8.2)
[2025-05-28 08:00] VITALS: BP 132/82; PULSE 67; TEMP 36.4; O2SAT 92
[2025-05-28] MEDS: FOLIC ACID 1 MG TABLET PO (08:52)
[2025-05-28] MEDS: FUROSEMIDE 40 MG TABLET PO (08:52)
[2025-05-28] MEDS: FERROUS SULFATE 325 MG TABLET PO ×2 (08:52→21:32)
[2025-05-28] MEDS: LINEZOLID 600 MG TABLET PO ×2 (08:52→21:32)
[2025-05-28] MEDS: CARVEDILOL 6.25 MG TABLET PO ×2 (08:52→21:32)
[2025-05-28] MEDS: ASPIRIN 81 MG TAB.CHEW PO (08:52)
[2025-05-28] MEDS: ENOXAPARIN SODIUM 40 MG/0.4 ML SYRINGE SUBQ ×2 (08:52→21:33)
[2025-05-28] MEDS: ISOSORBIDE MONONITRATE 30 MG TAB.ER.24H PO (08:52)
[2025-05-28] MEDS: SPIRONOLACTONE 25 MG TABLET 12.5 MG PO (08:52)
[2025-05-28] MEDS: glipiZIDE 2.5 MG TAB.ER.24 PO (08:52)
[2025-05-28] MEDS: THIAMINE MONONITRATE (VIT B1) 100 MG TABLET 200 MG PO (08:53)
[2025-05-28] MEDS: BUDESONIDE 0.5 MG/2 ML AMPULE NEB IH ×2 (10:32→20:23)
[2025-05-28] MEDS: IPRATROPIUM/ALBUTEROL SULFATE 3 ML AMPUL.NEB IH ×2 (10:33→20:23)
--- NOTE | 2025-05-28 11:32 | PM.PN ---
Progress Note: Subjective Subjective Interval history: Patient shows me a picture of his right foot that he took on his phone when the nurses changed his dressing earlier this morning. There is a clear looking blister that is about 3 cm x 2 cm. There is a tiny bit of redness around this. But the rest of the foot looks nice without acute bacterial redness. So I think that the cellulitis is improving very slowly. I told the patient that we do not want to rupture the blister now but eventually it may pop on its own. His sleep apnea machine from home is on the bedside table. The patient is out of bed and sitting in a chair. He admits to a little bit of loose bowel movements but no ade diarrhea. No abdominal pain. No fevers chills. No cough. No anginal chest pain. Exam Narrative Exam Narrative: General: Out of bed and reclining in a bedside chair. Pulmonary: Clear to auscultation throughout. No wheezing. No rhonchi. No crackles. Cardio: Regular rate and rhythm. No rubs or gallops to auscultation. GI: Abdomen soft, normal bowel sounds to auscultation. Abdomen is very protuberant. His BMI is 46.6. Lower extremities: Both lower extremities are wrapped from the toes up to the knees with an Kurt wrap. The cellulitis is not extending above the marked line on his right knee. Constitutional Vital Signs, click to edit/add: Last Vital Signs Temp 97.6 F 05/28/25 08:00 Pulse 67 05/28/25 08:00 Resp 20 05/28/25 08:00 BP 132/82 05/28/25 08:00 Pulse Ox 92 L 05/28/25 08:00 O2 Del Method Room Air 05/28/25 08:00 Progress Note: Objective Labs Labs: Short CBC 05/28/25 Range/Units 05:55 WBC 7.9 (4.0-11.0) 10^3/uL Hgb 11.7 L (14.0-18.0) g/dL Hct 36.9 L (42.0-54.0) % Plt Count 366 (150-450) 10^3/uL BMP 05/28/25 05:55 Sodium 136 Potassium 4.3 Chloride 103 Carbon Dioxide 23.4 BUN 30.0 H Creatinine 1.61 H Glucose 102 Calcium 8.6 Liver Function 05/28/25 Range/Units 05:55 Total Bilirubin 0.5 (0.2-1.0) mg/dL AST 28 (15-37) U/L ALT 31 (16-63) U/L Alkaline Phosphatase 64 (46-116) U/L Albumin 2.5 L (3.4-5.0) g/dL Progress Note: A&P Assessment and Plan (1) Cellulitis: Qualifiers: Laterality: right Site of cellulitis: extremity Site of cellulitis of extremity: lower extremity Qualified Code(s): L03.115 - Cellulitis of right lower limb (2) FREDA (acute kidney injury): (3) CKD (chronic kidney disease): Qualifiers: Chronic kidney disease stage: stage 4 (GFR 15-29) Qualified Code(s): N18.4 - Chronic kidney disease, stage 4 (severe) (4) Sepsis: (5) CAD (coronary artery disease): (6) HTN (hypertension): (7) Diabetes: Plan Sepsis present on admission Extensive cellulitis involving the right leg. Erythema, induration and tenderness involving the anterior, medial, lateral and posterior leg from the knee down to the ankle as well as the dorsal foot. Palpable dorsalis pedis pulse Dopplerable dorsalis pedis pulse Slight improvement of erythema, induration and pain objectively and subjectively. CRP is trending down. 22.07 down to 9.12 Continue Zosyn and Zyvox. Blood culture is negative thus far. Venous studies negative for DVT. Arterial study this came back positive for peripheral vascular disease. 50% stenosis in the distal right anterior tibial artery. Moderate peripheral vascular disease otherwise. No clinical evidence of acute arterial compromise. Strong dopplerable dorsalis pedis pulse. Patient may need CT angio. Unfortunately patient developed acute on chronic kidney failure and at risk having contrast nephropathy. Hold off on contrasted vascular evaluation at this time moderate CTA or angiogram. Requested regular CT without any contrast to rule out deep tissue abscess. This came back negative for abscess but significant cellulitis. Fluid collection at the dorsal aspect of the foot. Patient had bullous formation which is seen on CT. This bullous formation had been drained by wound care. I do anticipate that patient will require long-term IV antibiotic for the next several weeks given the severity of his infection. Acute kidney injury on top of chronic kidney disease. Present on admission. This is DUE TO the sepsis. This could be related to infectious glomera nephritis This could be related to borderline hypotension and renal hypoperfusion, prerenal azotemia UA does not show RBC or protein to suggest glomerulonephritis Renal Ultrasound is negative for obstructive uropathy. Discontinue of NSAID medication. Avoid nephrotoxic drugs Kidney function continues to improve, slowly, and is stable on a day to day basis. CAD. Previous angioplasty and CABG No active anginal chest pain Continue statin and beta-fitz as well as isosorbide Tobacco addiction ex-smoker Patient quit 5 years ago. Increased risk for lung cancer. Recommend outpatient yearly low-dose radiation CAT scan of the chest to screen for lung cancer to be raised by PCP. Diabetes Accu-Chek with a sliding scale coverage. Resumed home glipizide 2.5 mg daily. COPD, no exacerbation Continue Trelegy Saturation 95% on room air Morbid obesity Diet, exercise and lifestyle modification counseling Obstructive sleep apnea. Pt should use his home sleep apnea machine all night, and for any naps during the day. DVT prophylaxis Lovenox subcu 40 mg twice a day Daily alcohol consumption Suspect alcohol dependency Started patient on folic acid and thiamine Watch for alcohol withdrawal syndrome Anemia, no evidence of acute blood loss. Folic acid deficiency Iron deficiency Started on folic acid, and iron tablet that he takes once daily at home is increased to twice daily. Patient will likely require to have anemia workup to be done in the outpatient setting to be handled by PCP in collaboration with other needed outpatient providers. This may include but not limited to EGD, colonoscopy, referral to see hematology and other needed age-appropriate cancer screening. Chronic, subacute medical conditions not listed above, abnormal labs and imaging. These would need to be addressed. Could be addressed later on or in the outpatient setting by PCP collaboration with other needed outpatient providers when time and condition are appropriate.
[2025-05-28 15:05] VITALS: BP 114/72; PULSE 65; TEMP 36.4; O2SAT 92
[2025-05-28] MEDS: 0.9 % SODIUM CHLORIDE 250 ML 10 ML IV (17:02)
[2025-05-28 19:46] VITALS: BP 124/77; PULSE 83; TEMP 36.6; O2SAT 91
[2025-05-28 20:23] VITALS: PULSE 76; O2SAT 92
[2025-05-28] MEDS: ATORVASTATIN CALCIUM 40 MG TABLET PO (21:32)
[2025-05-28] MEDS: INSULIN ASPART 300 UNIT/3 ML PEN SUBQ (21:33)
[2025-05-29] VITALS (7 sets, daily range): BP systolic 118–158; BP diastolic 73–79; PULSE 64–72; TEMP 36.4–36.9; O2SAT 91–93
[2025-05-29] MEDS: PIPERACILLIN SODIUM/TAZOBACTAM 3.375 GM in 0.9 % SODIUM CHLORIDE 50 ML IV ×2 (02:47→12:54)
--- NOTE | 2025-05-29 08:00 | CM.NOTE ---
Rounds made with Dr. Aragon, pt will discharge to home today with services. Awaiting susceptibility on [facility] for home antibiotic therapy.
[2025-05-29] MEDS: ENOXAPARIN SODIUM 40 MG/0.4 ML SYRINGE SUBQ (08:57)
[2025-05-29] MEDS: ASPIRIN 81 MG TAB.CHEW PO (08:57)
[2025-05-29] MEDS: THIAMINE MONONITRATE (VIT B1) 100 MG TABLET 200 MG PO (08:57)
[2025-05-29] MEDS: LINEZOLID 600 MG TABLET PO (08:57)
[2025-05-29] MEDS: CARVEDILOL 6.25 MG TABLET PO (08:57)
[2025-05-29] MEDS: FOLIC ACID 1 MG TABLET PO (08:58)
[2025-05-29] MEDS: ISOSORBIDE MONONITRATE 30 MG TAB.ER.24H PO (08:58)
[2025-05-29] MEDS: FUROSEMIDE 40 MG TABLET PO (08:58)
[2025-05-29] MEDS: FERROUS SULFATE 325 MG TABLET PO (08:58)
[2025-05-29] MEDS: SPIRONOLACTONE 25 MG TABLET 12.5 MG PO (08:59)
[2025-05-29] MEDS: INSULIN ASPART 300 UNIT/3 ML PEN SUBQ ×2 (08:59→12:58)
[2025-05-29] MEDS: glipiZIDE 2.5 MG TAB.ER.24 PO (09:08)
[2025-05-29] MEDS: BUDESONIDE 0.5 MG/2 ML AMPULE NEB IH (09:48)
[2025-05-29] MEDS: IPRATROPIUM/ALBUTEROL SULFATE 3 ML AMPUL.NEB IH (09:48)
--- NOTE | 2025-05-29 09:48 | P.DS_ITS ---
DS: Providers Provider Date of admission: 05/24/25 07:54 Primary care physician: Teressa Sierra NP Consults: 05/24/25 12:47 Consult to Wound Care Routine Consulting Provider: John Mcneill Reason for consultation: Wound care DS: Diagnosis Discharge Diagnosis (1) Cellulitis: Qualifiers: Laterality: right Site of cellulitis: extremity Site of cellulitis of extremity: lower extremity Qualified Code(s): L03.115 - Cellulitis of right lower limb (2) FREDA (acute kidney injury): (3) CKD (chronic kidney disease): Qualifiers: Chronic kidney disease stage: stage 4 (GFR 15-29) Qualified Code(s): N18.4 - Chronic kidney disease, stage 4 (severe) (4) Sepsis: (5) CAD (coronary artery disease): (6) HTN (hypertension): (7) Diabetes: Plan As listed above, below and others that are not listed DS: Summary Hospital Course Hospital Course: Mr. Young is an 80-year-old gentleman who came in with pain, swelling and redness involving the left leg and was found to have the following: Sepsis present on admission Extensive cellulitis involving the right leg. Erythema, induration and tenderness involving the anterior, medial, lateral and posterior leg from the knee down to the ankle as well as the dorsal foot. Significant resolution of erythema, induration and tenderness compared to admission state Palpable dorsalis pedis pulse Dopplerable dorsalis pedis pulse CRP is trending down. 22.07 down to 9.12 Continue Zosyn and Zyvox. Patient will be discharged home on Zyvox and Levaquin orally which both has good oral bioavailability Requested blood culture. Positive for bacillus species in 1 out of 2 which is likely contamination. Venous studies negative for DVT. Requested arterial study this came back positive for peripheral vascular disease. 50% stenosis in the distal right anterior tibial artery. Moderate peripheral vascular disease otherwise. No clinical evidence of acute arterial compromise. Strong dopplerable dorsalis pedis pulse. Patient will be referred to follow-up with vascular team. Patient may need CT angio. Unfortunately patient developed acute on chronic kidney failure and at risk having contrast nephropathy. Hold off on contrasted vascular evaluation at this time moderate CTA or angiogram. Requested regular CT without any contrast to rule out deep tissue abscess. This came back negative for abscess but significant cellulitis. Fluid collection at the dorsal aspect of the foot. Patient had bullous formation which is seen on CT. This bullous formation had been drained by wound care. Patient is doing much better. Significant resolution of cellulitis changes, erythema, induration and tenderness. Patient will be discharged home on oral a ntibiotic. FREDA/CKD This could be related to sepsis. This could be related to aggressive BP meds and diuretics. This could be related to infectious glomera nephritis This could be related to borderline hypotension and renal hypoperfusion, prerenal azotemia Requested UA to see if there is an RBC or proteinuria. UA does not show RBC or protein to suggest glomerulonephritis Requested ultrasound rule out obstructive uropathy. Ultrasound is negative for obstructive uropathy. Discontinue of NSAID medication. Avoid nephrotoxic drugs Kidney function continues to improve. At baseline. CAD. Previous angioplasty and CABG No active anginal chest pain Continue statin and beta-fitz as well as isosorbide Tobacco addiction ex-smoker Patient quit 5 years ago. Increased risk for lung cancer. Recommend outpatient yearly low-dose radiation CAT scan of the chest to screen for lung cancer to be raised by PCP. Diabetes Accu-Chek with a sliding scale coverage. Resumed home glipizide 2.5 mg daily. Patient will be instructed to do the following Check your blood sugar 3 times a day before meals. Document these numbers on a blood glucose log and bring them with you to your follow-up appointment with your primary care doctor. Communicate with your primary care doctor or infantry operations specialist if your blood sugar is under 100 or above 300 on 2 consecutive checks. Communicate with your primary care doctor or infantry operations specialist if you have any questions about your diabetes medications. Signs of a low blood sugar include sweating, racing heart, dizziness and/or weakness. Check your blood sugar if you have any of the symptoms. 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 Requested iron study, ferritin and B12. Folate is low. Start patient on full deficiency. Also start patient on iron supplementation Patient will likely require to have anemia workup to be done in the outpatient setting to be handled by PCP in collaboration with other needed outpatient providers. This may include but not limited to EGD, colonoscopy, referral to see hematology and other needed age-appropriate cancer screening. Chronic, subacute medical conditions not listed above, abnormal labs and imaging. These would need to be addressed. Could be addressed later on or in the outpatient setting by PCP collaboration with other needed outpatient providers when time and condition are appropriate. Patient has multiple complex medical issues as listed above and others that are not listed. All appear to be stable. I do not have any clear or strong clinical justification to extend inpatient hospitalization. Patient however will require close and frequent monitoring as well as additional work-up, investigation and therapeutic intervention that could take place from this point on post discharge. That is to prevent relapse, decompensation, rehospitalization and other medical implications.. I instructed patient to ask her primary care doctor to obtain [facility] record entirely to address abnormalities seen on labs and imaging that I have and have not addressed during this hospitalization, follow-up on pending blood work, imaging and pathology is if available and to follow-up on needed medical care in the outpatient setting. Time Spent with Patient Time attestation: Total time spent providing and/or coordinating discharge services: Exam Narrative Exam Narrative: General: Out of bed and reclining in a bedside chair. Pulmonary: Clear to auscultation throughout. No wheezing. No rhonchi. No crackles. Cardio: Regular rate and rhythm. No rubs or gallops to auscultation. GI: Abdomen soft, normal bowel sounds to auscultation. Abdomen is very protuberant. His BMI is 46.6. Lower extremities: Significant resolution of erythema, induration and tenderness involving the right leg from the knee down to the foot. Constitutional Vital Signs, click to edit/add: Last Vital Signs Temp 97.6 F 05/29/25 05:00 Pulse 158 H 05/29/25 08:58 Resp 20 05/29/25 08:58 BP 154/78 H 05/29/25 05:00 Pulse Ox 92 L 05/29/25 08:58 O2 Del Method Room Air 05/29/25 05:00 DS: Data Data Completed and Pending Labs on day of discharge: Labs from last 24 hours 05/29/25 05/28/25 05/28/25 09:02 19:43 16:15 POC Glucose 152 H 165 H 135 H 05/28/25 11:32 POC Glucose 132 H Preliminary micro results at discharge 05/23/25 13:37 Blood Culture Result 2 - Preliminary Blood - Left Antecubital Discharge Plan Discharge Disposition: Home Health Service Condition: Fair Discharge Medications: New linezolid 600 mg Tablet 600 mg PO BID Qty: 20 0RF folic acid 1 mg Tablet 1 mg PO QD Qty: 30 1RF levofloxacin 250 mg tablet 250 mg PO DAILY 10 Days Qty: 10 0RF Continued atorvastatin 40 mg tablet 40 mg PO .qhs carvedilol 12.5 mg tablet 12.5 mg PO Q12H Trelegy Ellipta 100-62.5-25 mcg blister with device 1 inh INHALATION Q24H furosemide 40 mg tablet 40 mg PO QAM glipizide 5 mg tablet 2.5 mg PO QDAY isosorbide mononitrate 30 mg tablet extended release 24 hr 30 mg PO QDAY spironolactone 25 mg tablet 12.5 mg PO QDAY aspirin 81 mg tablet,chewable 81 mg PO DAILY ferrous sulfate [FeroSul] 325 mg (65 mg iron) tablet 325 mg PO DAILY Discontinued celecoxib 200 mg capsule 200 mg PO Q24H Print Language: [place] Activity Restrictions/Additional Instructions: I may not have addressed or treated all of your medical illnesses or the abnormal blood work or imaging studies during this hospitalization. Please ask your primary care provider to obtain [place] records entirely to follow up on all of the abnormal physical, laboratory, and imaging findings that I have not addressed. Please return back to the emergency room or seek medical attention if your symptoms worsen or return. Check your blood sugar 3 times a day before meals. Document these numbers on a blood glucose log and bring them with you to your follow-up appointment with your primary care doctor. Communicate with your primary care doctor or infantry operations specialist if your blood sugar is under 100 or above 300 on 2 consecutive checks. Communicate with your primary care doctor or infantry operations specialist if you have any questions about your diabetes medications. Signs of a low blood sugar include sweating, racing heart, dizziness and/or weakness. Check your blood sugar if you have any of the symptoms. CBC and BMP weekly for 2 weeks. Results to be communicated his PCP Follow-up in the wound clinic starting this or Thursday Please follow-up with vascular doctor regarding poor circulation in the legs. I recommend that you have low-dose radiation CAT scan of the chest every year to screen for lung cancer to be arranged by your primary care doctor. Discharging you from [place] does not mean that your medical care ends here and now. You may still need additional monitoring, work up, investigation, and treatment plan to be handled from this point on by out patient providers including your primary care provider and specialists. For any medication question, please contact your retail pharmacist or your primary care provider. Thank you. Forms: Portal Instructions Referrals: [facility] [Other] Referral Note: Regarding circulation trouble in your leg Wound clinic [Other] Follow Up Appointments: Thu. 06/05 @ 10am with Teressa Sierra NP [phone] Tu. 06/13 @10:30am with [facility] [address], [place] [phone]
--- NOTE | 2025-05-29 09:52 | CM.NOTE ---
CRF completed for MANDA Yates will notify [facility] of pt's discharge.
--- NOTE | 2025-05-29 09:57 | SWNOTE1 ---
Pt is likely being discharged today. Case management checking final culture results to determine oral or IV antibiotics at discharge.
--- NOTE | 2025-05-29 10:55 | SWNOTE1 ---
Pt is being discharged on oral antibiotics. MANDA sent dc med rec, dc summary, labs from yesterday, progress notes from the weekend and CRF which included weekly labs and wound care orders to [facility]. MANDA spoke with pt and he has a ride that will be here around 3:00. MANDA updated the nurse on transport time.
--- NOTE | 2025-05-29 11:00 | PC.NURSE ---
wounds are looking much better with drainage slowing down redness still present and swelling is still present but much improved
--- NOTE | 2025-05-30 13:37 | CM.DCFOLLOWU ---
Person spoke with:Shan How are you feeling?Much better How is your pain? No pain Did you understand your discharge instructions? Yes Do you have any questions about your discharge instructions?No Were you given any prescriptions at discharge?Yes Were you able to get your prescriptions filled?Yes Do you understand how to take your medications as ordered?Yes Do you have any questions about your follow up appointment and do you plan to keep your follow up appointment? No questions and he plans on keeping his appts Is there anything else that you would like to discuss? No Questions/Comments/Concerns/Other:
== END 2025-05-29 15:40 | disposition home health service (06) | DRG 872 ==
LOC: ER 13:17 → MS 14:17
PROVIDERS: Hospitalist; Admitting Provider Internal Medicine; Emergency Provider Student in an Organized Health Care Education/Training Program; PCP Nurse Practitioner; Visit Provider Internal Medicine
DX: A41.9 Sepsis, unspecified organism (principal); L03.115 Cellulitis of right lower limb; N17.9 Acute kidney failure, unspecified; I13.0 Hypertensive heart and chronic kidney disease with heart failure and stage 1 through stage 4 chronic kidney disease, or unspecified chronic kidney disease; L97.929 Non-pressure chronic ulcer of unspecified part of left lower leg with unspecified severity; Z68.42 Body mass index [BMI] 45.0-49.9, adult; N18.4 Chronic kidney disease, stage 4 (severe); I87.312 Chronic venous hypertension (idiopathic) with ulcer of left lower extremity; L97.822 Non-pressure chronic ulcer of other part of left lower leg with fat layer exposed; I25.10 Atherosclerotic heart disease of native coronary artery without angina pectoris; E11.22 Type 2 diabetes mellitus with diabetic chronic kidney disease; Z95.1 Presence of aortocoronary bypass graft; Z87.891 Personal history of nicotine dependence; J44.9 Chronic obstructive pulmonary disease, unspecified; Z79.84 Long term (current) use of oral hypoglycemic drugs; E66.01 Morbid (severe) obesity due to excess calories; E11.51 Type 2 diabetes mellitus with diabetic peripheral angiopathy without gangrene; D64.9 Anemia, unspecified; S90.821A Blister (nonthermal), right foot, initial encounter; E11.622 Type 2 diabetes mellitus with other skin ulcer; R65.20 Severe sepsis without septic shock; G47.33 Obstructive sleep apnea (adult) (pediatric); E61.1 Iron deficiency; E53.8 Deficiency of other specified B group vitamins; I50.9 Heart failure, unspecified; F10.20 Alcohol dependence, uncomplicated; Z90.49 Acquired absence of other specified parts of digestive tract; I25.2 Old myocardial infarction; Z96.659 Presence of unspecified artificial knee joint; Z79.899 Other long term (current) drug therapy; Z79.82 Long term (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
CPT/HCPCS: 36415; 71045; 73700; 76376; 76775; 80048; 80053; 81001; 82607; 82728; 82746; 82948; 83540; 83550; 83605; 83880; 84484; 85025; 85027; 86140; 87040; 87070; 87075; 87088; 87150; 93005; 93926; 93971; 94640; 96365; 96366; 96367; 96372; 96375; 99285; G0378; G0463; J1100; J1650; J1885; J1938; J2543; J3373; J3411

== ENCOUNTER 2025-06-12 12:14 | Outpatient (REF) | payer MEDICARE, SELFPAY ==
--- OUTSIDE RECORDS SUMMARY | 2025-06-12 12:22 | XMS_ITS | CCD ---
Author Organization [facility] Care Team Providers Care Petroleum Inspector Supervisor Name Role Phone MAL BARNES Primary Care Unavailable PAYROBIN Referring Unavailable MASROOR, GUDELIA Admitting Unavailable MASROOR, GUDELIA Attending Unavailable AKANKSHA UP Surgeon Unavailable CT Procedure Practitioner Unavailab le CT Procedure Practitioner Unavailab le MASROOR, GUDELIA Surgeon Unavailable Moshe Garcia Unavailable ARIELLA [...] Unavailable MOLLY, DR MENEZES Primary Care Unavailable FAWISA, CUBA H Admitting Unavailable DEBI, CUBA H Attending Unavailable ROBIN, DR NOREEN Oniell Consulting Unavailable JESSICA ., DR TODD Consulting Unavailable MIS, ESTUARDO Consulting Unavailable FAWWAD, CUBA H Consulting Unavailable MOLLY, DR MENEZES Admitting Unavailable MOLLY, DR MENEZES Attending Unavailable MOLLY, DR MENEZES Primary Care Unavailable MOLLY, DR MENEZES Consulting Unavailable ROBIN, DR NOREEN Oneill Consulting Unavailable MOUKARBEL, DR DOMINIQUE Admitting Unavailable MOUKARBEL, DR DOMINIQUE Attending Unavailable HOUSE, DR MENEZES Primary Care Unavailable MOUKARBEL, DR DOMINIQUE Consulting Unavailable MOUKARBEL, DR DOMINIQUE Admitting Unavailable MOUKARBEL, DR DOMINIQUE Attending Unavailable MOLLY, DR MENEZES Primary Care Unavailable [place], DR JOHANA Alvarado Consulting Unavailable MOUKARBEL, DR DOMINIQUE Consulting Unavailable MOUKARBEL, DR DOMINIQUE Admitting Unavailable MARTIN, DR DOMINIQUE Attending Unavailable MOLLY, DR MENEZES Primary Care Unavailable MARTIN, DR DOMINIQUE Consulting Unavailable Mal Barnes MD Unavailable Kath TRAVIS, Gilberto Unavailable Teressa Sierra NP Unavailable Gilberto Stockton MD Primary Care Provider Kath TRAVIS, Gilberto Unavailable Kath TRAVIS, Gilberto Unavailable CATINA HEARN Attending Unavailable CATINA HEARN Attending Unavailable ARIELLA GALLEGO Attending Unavailable Mal Barnes MD Unavailable AICTERESSA MANCIA Attending Unavailable SAMANTHAHTERESSA GEE Attending Unavailable TERESSA SIERRA Attending Unavailable ТАТЬЯНА DANGELO Attending Unavailable AICHTERESSA GEE Referring Unavailable ADARSH MALIK Attending Unavailable TERESSA SIERRA Attending Unavailable Jefry Hardin DO Attending Provider King Aragon MD Attending Provider [phone] Aries Perez DO Attending Provider Mariela VOCATIONAL COUNSELOR-CTeressa Primary Care Provider Biju Monroe MD Attending Provider [phone] Mariela VOCATIONAL COUNSELOR-CTeressa Attending Provider [phone] King Aragon Attending Unavailable King Aragon Admitting Unavailable Teressa Sierra Primary Care Unavailable Biju Monroe Attending UnavailBiju Sam Admitting Unavailsanford brown Medications Current Medications Medication Drug Class(es) Dates Sig (Normalized) Sig (Original) [id number] 200 actuat albuterol 0.09 mg/actuat metered dose inhaler (20 sources) beta2-Adrenergic Agonist take 2 puff(s) by inhalation every six hours for wheezing albuterol HFA 90 mcg/act inhaler Inhale 2 puffs every 6 (six) hours if needed for shortness of breath or wheezing Active aspirin 81 mg oral tablet (20 sources) Platelet Aggregation Inhibitor, Nonsteroidal Anti-inflammatory Drug Start: 02-19-2023 take 1 tablet by mouth once daily Aspirin 81 mg Tablet Active 81 MG PO Daily February 19, 2023 12:00am Complies with drug therapy ASPIRIN 81 MG ch ewable tablet Chew 81 mg in the morning. Active atorvastatin 40 mg oral tablet (20 sources) HMG-CoA Reductase Inhibitor Start: 02-19-2023 End: 06-19-2025 take 1 tablet by mouth once daily at bedtime Atorvastatin 40 mg Tablet Active 40 MG PO Daily at bedtime February 19, 2023 12:00am Complies with drug therapy Blood Glucose Monitoring Suppl (True Metrix Air [...] (20 sources) alpha-Adrenergic Fitz, beta-Adrenergic Fitz Start: 02-19-2023 End: 06-19-2025 take 1 tablet by mouth twice daily at mealtime Carvedilol 12.5 mg Tablet Active 12.5 MG PO Twice daily February 19, 2023 12:00am must administer with a meal/food Complies with drug therapy celecoxib 200 mg oral capsule (20 sources) Nonsteroidal Anti-inflammatory Drug Start: 02-19-2023 End: 03-21-2025 take 1 capsule by mouth once daily cephalexin 500 mg oral capsule (15 sources) Cephalosporin Antibacterial Start: 09-20-2024 End: 09-29-2024 take 1 capsule by mouth in the morning cephalexin (Keflex) 500 MG capsule Take 500 mg by mouth in the morning and 500 mg before bedtime. 09/20/2024 09/29/2024 Active Start: 02-19-2023 End: 03-18-2023 take 1 capsule by mouth twice daily Cephalexin 500 mg capsule Discontinued 500 MG PO Twice daily February 19, 2023 12:00am March 18, 2023 9:24am Start: 10-23-2017 End: 11-02-2017 take 1 capsule by mouth twice daily Cephalexin (Keflex) 500 mg capsule Discontinued 500 MG PO Twice daily 14 7 October 23, 2017 1:00am October 29, 2017 1:00am October 23, 2017 9:29am ferrous sulfate 325 mg oral tablet (20 sources) Start: 02-19-2023 End: 10-11-2024 take 1 tablet by mouth once daily Ferrous Sulfate 325 mg (65 mg iron) Tablet Active 325 MG PO Daily February 19, 2023 12:00am Complies with drug therapy Fluticasone-Umecl idin-Vilanter (20 sources) Anticholinergic, Corticosteroid, beta2-Adrenergic Agonist Start: 05-31-2025 Fluticasone-Umeclid in-Vilanter (Trelegy Ellipta) 100-62.5-25 mcg blister with device Active INHALATION May 31, 2025 12:00am Complies with drug therapy Start: 05-31-2025 Start: 12-24-2023 End: 04-20-2025 take 1 puff(s) by mouth once daily Pgtwdjakfew-Uevsvknlg-Jzpxlq (Trelegy Ellipta) 100-62.5-25 MCG/ACT aerosol powder Indications: Chronic obstructive pulmonary disease, unspecified COPD type (HCC) 1 puff by Other route Daily Rinse mouth after use 60 each 3 03/21/2025 04/20/2025 Active folic acid 1 mg oral tablet (3 sources) Start: 05-31-2025 Folic Acid 1 m g tablet Active PO May 31, 2025 12:00am Complies with drug therapy furosemide 40 mg oral tablet (20 sources) Loop Diuretic Start: 05-31-2025 Furosemide 40 mg tablet Active MG PO May 31, 2025 12:00am Complies with drug therapy Start: 10-03-2024 take 1 tablet by donato th once daily furosemide (Lasix) 40 MG tablet Take 40 mg by mouth Daily 10/03/2024 Active Start: 10-23-2017 End: 02-19-2023 Furosemide 20 mg tablet Disc ontinued 40 MG Daily October 23, 2017 1:00am February 19, 2023 7:59am take 1 tablet by donato th every [...] mouth Daily 45 tablet 1 09/08/2024 Active Start: 02-19-2023 take 1 tablet by donato th once daily Glipizide 5 mg Tablet Active 5 MG PO Daily February 19, 2023 12:00am Complies with drug therapy sodium hypochlorite 2.5 mg/ml topical solution (4 sources) Start: 02-19-2023 Sodium Hypochlorite (Dakin's Solution) 0.25 % solution Active 1 APPLIC TOPICAL .3 times weekly 473 February 19, 2023 12:00am cleanse lower legs/ulcers as per wound care orders Complies with drug therapy 24 hr isosorbide mononitrate 30 mg extended release oral tablet (20 sources) Nitrate Vasodilator Start: 02-19-2023 take 1 tablet by mouth once daily, then take 1 tablet by mouth every twenty-four hours Isosorbide Mononitrate 30 mg Tablet Extended Release 24 Hr Active 30 MG PO Daily February 19, 2023 12:00am Complies with drug therapy levoFLOXacin 250 mg oral tablet (3 sources) Quinolone Antimicrobial Start: 05-31-2025 Levofloxacin 250 mg tablet Active MG PO May 31, 2025 12:00am Complies with drug therapy linezolid 600 mg oral tablet (3 sources) Oxazolidinone Antibacterial Start: 05-31-2025 Linezolid 600 mg tablet Active MG PO May 31, 2025 12:00am Complies with drug therapy nabumetone 500 mg oral tablet (1 source) [...] oral tablet (20 sources) Aldosterone Antagonist Start: 03-15-2025 End: 06-13-2025 take 0.5 tablet by mouth once daily spironolactone (Aldactone) 25 MG tablet Indications: Localized edema Take 0.5 tablets (12.5 mg) by mouth Daily 45 tablet 1 03/15/2025 06/13/2025 Active Start: 02-19-2023 End: 12-10-2024 take 1 tablet by mouth once daily Spironolactone 25 mg Tablet Active 25 MG PO Daily February 19, 2023 12:00am Complies with drug therapy TraZODone & Diet Manage Prod (TRAZAMINE PO) (20 sources) TraZODone & Diet Manage Prod (TRAZAMINE PO) Take 50 mg by mouth Active Completed/Discontinued Medications Medication Drug Class(es) Dates Sig (Normalized) Sig (Original) amLODIPine 5 mg oral tablet (20 sources) Dihydropyridine Calcium Channel Fitz Start: 02-19-2023 End: 05-31-2025 take 1 tablet by mouth once daily Amlodipine 5 mg tablet Discontinued 5 MG PO Daily February 19, 2023 12:00am May 31, 2025 11:47am Start: 10-23-2017 End: 02-19-2023 Amlodipine 10 mg tablet Disc ontinued 10 MG Daily October 23, 2017 1:00am February 19, 2023 7:59am castor oil 0.788 mg/mg / turkmen balsam 0.087 mg/mg topical ointment (4 sources) Standardized Chemical Allergen Start: 10-30-2017 End: 09-20-2018 apply 1 g topically once daily Balsam [place] Oil (Venelex) 87-788 mg/gram ointment Discontinued 1 GM TOPICAL Daily 60 October 30, 2017 1:00am September 20, 2018 12:14pm apply thin layer to legs daily doxycycline hyclate 100 mg oral tablet (4 sources) Tetracycline-class Drug Start: 03-18-2023 End: 04-06-2023 take 1 tablet by mouth twice daily Doxycycline Hyclate 100 mg tablet Discontinued 100 MG PO Twice daily 12 06March 18, 2023 12:00am April 06, 2023 9:40am empagliflozin 10 mg oral tablet (4 sources) Sodium-Glucose Cotransporter 2 Inhibitor Start: 02-19-2023 End: 05-31-2025 take 1 tablet by mouth once daily Empagliflozin 10 mg Tablet Discontinued 10 MG PO Daily February 19, 2023 12:00am May 31, 2025 11:47am Ibuprofen (1 source) Nonsteroidal Anti-inflammatory Drug Ibuprofen Not-Taking metFORMIN hydrochloride 500 mg oral tablet (5 sources) Biguanide Start: 10-23-2017 End: 02-19-2023 Metformin 500 mg tablet Discontinued 500 MG Twice daily October 23, 2017 1:00am February 19, 2023 8:00am take 1 tablet by mouth once maty y metFORMIN HCl 500 MG 1 tablet with a meal Orally Once a day Active Semaglutide,0.25 or 0.5MG/DO S, (Ozempic, 0.25 or 0.5 MG/DOSE,) 2 MG/3ML solution pen-injector (3 sources) Start: 03-14-2024 End: 06-01-2024 Semaglutide,0.25 or 0.5MG/DO S, (Ozempic, 0.25 or 0.5 MG/DOSE,) 2 MG/3ML [...] 28 days 3 mL 2 03/14/2024 Active sulfamethoxazole 800 mg / trimethoprim 160 mg oral tablet (4 sources) Dihydrofolate Reductase Inhibitor Antibacterial, Sulfonamide Antimicrobial Start: 10-26-2017 End: 09-20-2018 take 1 tablet by mouth twice daily Sulfamethoxazole-Trimethoprim (Bactrim Ds) 800-160 mg tablet Discontinued 1 TAB PO Twice daily October 26, 2017 1:00am September 20, 2018 12:13pm traZODone hydrochloride 50 mg oral tablet (5 sources) Serotonin Reuptake Inhibitor Start: 02-19-2023 End: 05-31-2025 take 1 tablet by mouth once daily at bedtime Trazodone 50 mg Tablet Discontinued 50 MG PO Daily at bedtime February 19, 2023 12:00am May 31, 2025 11:47am take 1 tablet by donato th every twenty-four hours traZODone HCl 50 MG 1 tablet at bedtime as needed Orally Once a day Not-Taking Triamcinolone (2 sources) Corticosteroid Start: 10-06-2019 Kenalog -40 mg Sep, 40 mg Start: 09-06-2019 Kenalog -40 mg Aug, 40 mg Problems Active Problems Problem Classification Problem Date Documented Da te Episodic/Chronic Acute myocardial infarction (20 sources) Myocardial infarction; Translations: [Acute myocardial infarction, unspecified] Onset: 4 09-08-2023 Chronic Aortic; peripheral; and visceral artery aneurysms (20 sources) Dilatation of aorta; Translations: [Aortic ectasia, unspecified site] Onset: 4 03-14-2024 Chronic Cardiac dysrhythmias (20 sources) Unspecified atrial fibrillation; Translations: [Ventricular tachycardia] Onset: 1 03-14-2024 Chronic Chronic kidney disease (20 sources) Chronic kidney disease stage 3A ; Translations: [Chronic kidney disease, stage 3a (HCC)] Onset: 4 Resolved: 5 03-14-2024 Chronic Chronic kidney disease (2 sources) Chronic kidney disease; Translations: [Chronic kidney disease, stage 3b] Onset: 5 Chronic obstructive pulmonary disease and bronchiectasis (20 sources) Chronic obstructive lung disease; Translations: [Chronic obstructive pulmonary disease, unspecified] Onset: 4 09-08-2023 Chronic Chronic ulcer of skin (20 sources) Chronic ulcer of lower extremity; Translations: [Non-pressure chronic ulcer of unspecified part of unspecified lower leg with unspecified severity] Onset: 4 Resolved: 5 03-14-2024 Chronic Comment on above: Problem List clean-u p per request of Phys. ENDY Cmte Congestive heart failure; nonhypertensive (20 sources) Chronic diastolic (congestive) heart failure; Translations: [Chronic diastolic heart failure] Onset: 2 Chronic Coronary atherosclerosis and other heart disease (20 sources) 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; Translations: [Atherosclerotic heart disease of [place] coronary artery with other forms of angina pectoris] Onset: 2 09-08-2023 Chronic Coronary atherosclerosis and other heart disease (6 sources) Presence of aortocoronary bypass graft; Translations: [H/O cardiac surgery] Onset: 2 Episodic Deficiency and other anemia (1 source) Anemia; Translations: [Anemia, unspecified] 07-13-2024 Episodic Deficiency and other anemia (1 source) Iron deficiency anemia; Translations: [Iron deficiency anemia, unspecified] 06-05-2025 Episodic Diabetes mellitus with complications (20 sources) Type 2 diabetes mellitus with diabetic chronic kidney disease; Translations: [Type 2 diabetes mellitus with ulcer] Onset: 3 Resolved: 4 03-14-2024 Chronic Diabetes mellitus without complication (20 sources) Type 2 diabetes mellitus; Translations: [Type 2 diabetes mellitus without complications] Onset: 4 03-14-2024 Chronic Disorders of lipid metabolism (20 sources) Pure hypercholesterolemia, unspecified; Translations: [Mixed hyperlipidemia] Onset: 3 Resolved: 4 06-01-2024 Chronic Essential hypertension (20 sources) Essential (primary) hypertension; Translations: [Essential hypertension] Onset: 2 Chronic Hypertension with complications and secondary hypertension (1 source) Hypertensive heart and chronic kidney disease with heart failure and stage 1 through stage 4 chronic kidney disease, or unspecified chronic kidney disease; Translations: [HTN HRT CKD W/HF STAGE 1-4/UNS CKD] Onset: 3 Chronic Neoplasms of unspecified nature or uncertain behavior (20 sources) Monoclonal gammopathy of uncertain significance; Translations: [Monoclonal gammopathy] Onset: 2 12-14-2023 Chronic Osteoarthritis (20 sources) Osteoarthritis of right hip joint; Translations: [Unilateral primary osteoarthritis, right hip] Onset: 2 Chronic Other aftercare (1 source) snf (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; Translations: [CLASSIFIED AD TAKER CURRENT USE OF ASPIRIN] Onset: 3 Episodic Other aftercare (1 source) 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/antipl atelets; Translations: [CLASSIFIED AD TAKER ANTITHROMBOT/ANTIPLATL ETS] Onset: 3 Episodic Other aftercare (1 source) Other buttermaker helper (current) drug therapy; Translations: [OTH CLASSIFIED AD TAKER CURRENT DRUG THERAPY] Onset: 3 Episodic Other aftercare (1 source) snf (current) use of oral hypoglycemic drugs; Translations: [CLASSIFIED AD TAKER USE ORAL HYPOGLYCEMIC DX] Onset: 3 Episodic Other and unspecified benign neoplasm (20 sources) Benign neoplastic disease; Translations: [Benign neoplasm, unspecified site] Onset: 4 12-14-2023 Episodic Other circulatory disease (1 source) Personal history of sudden cardiac arrest; Translations: [PERSONAL HISTORY SUDDEN CARD ARREST] Onset: 3 Episodic Other connective tissue disease (4 sources) History of total knee arthroplasty; Translations: [Presence of right artificial knee joint] 05-31-2025 Chronic Comment on above: b/l knees Other diseases of veins and lymphatics (20 sources) Non-infectious disorder of lymphatics; Translations: [Other specified noninfective disorders of lymphatic vessels and lymph nodes] Onset: 4 03-14-2024 Chronic Other diseases of veins and lymphatics (20 sources) Lymphedema; Translations: [Lymphedema, not elsewhere classified] Onset: 4 03-14-2024 Chronic Other diseases of veins and lymphatics (20 sources) Bilateral lower limb edema; Translations: [Chronic venous hypertension (idiopathic) with ulcer of bilateral lower extremity] Onset: 5 09-27-2024 Chronic Other diseases of veins and lymphatics (20 sources) Stasis dermatitis and venous ulcer of right lower extremity due to chronic peripheral venous hypertension; Translations: [Chronic venous hypertension (idiopathic) with ulcer and inflammation of right lower extremity] Onset: 5 09-27-2024 Chronic Other diseases of veins and lymphatics (20 sources) Venous insufficiency of leg; Translations: [Other specified disorders of veins] Onset: 4 12-14-2023 Episodic Other ear and sense organ disorders (20 sources) Decreased hearing ; Translations: [Unspecified hearing loss, unspecified ear] Onset: 4 09-08-2023 Chronic Other gastrointestinal disorders (20 sources) Constipation; Translations: [Constipation, unspecified] Onset: 4 09-08-2023 Episodic Other lower respiratory disease (5 sources) Shortness of breath; Translations: [SHORTNESS OF BREATH] Onset: 2 Episodic Other lower respiratory disease (20 sources) Solitary nodule of lung; Translations: [Solitary pulmonary nodule] Onset: 3 12-14-2023 Episodic Other nutritional; endocrine; and metabolic disorders (1 source) Body mass index (BMI) 40.0-44.9, adult; Translations: [BODY MASS INDEX BMI 40.0-44.9 ADULT] Onset: 3 Chronic Other nutritional; endocrine; and metabolic disorders (1 source) Morbid (severe) obesity due to excess calories; Translations: [MORBID SEVERE OBES D/T EXCESS BRENT] Onset: 3 Chronic Other nutritional; endocrine; and metabolic disorders (20 sources) Obesity caused by energy imbalance; Translations: [Morbid (severe) obesity due to excess calories] Onset: 4 03-14-2024 Chronic Other nutritional; endocrine; and metabolic disorders (20 sources) Body mass index 40+ - severely obese; Translations: [Body mass index (BMI) 45.0-49.9, adult] Onset: 4 03-14-2024 Chronic Other nutritional; endocrine; and metabolic disorders (4 sources) Obesity; Translations: [Obesity, unspecified] 10-23-2017 Chronic Other nutritional; endocrine; and metabolic disorders (2 sources) Morbid obesity; Translations: [Morbid (severe) obesity due to excess calories] 06-05-2025 Chronic Other skin disorders (2 sources) Epidermoid cyst; Translations: [Epidermal cyst] 12-28-2024 Episodic Other skin disorders (4 sources) Hyperpigmentation of skin; Translations: [Disorder of pigmentation, unspecified] 02-19-2023 Episodic Nara-; endo-; and myocarditis; cardiomyopathy (except that caused by tuberculosis or sexually transmitted disease) (20 sources) Pericardial effusion (noninflammatory); Translations: [Pericardial effusion] Onset: 2 12-14-2023 Episodic Peripheral and visceral atherosclerosis (20 sources) Peripheral vascular disease; Translations: [Peripheral vascular disease, unspecified] Onset: 2 03-14-2024 Chronic Pneumonia (except that caused by tuberculosis or sexually transmitted disease) (1 source) Unspecified bacterial pneumonia; Translations: [UNSPECIFIED BACTERIAL PNEUMONIA] Onset: 3 Episodic Residual codes; unclassified (1 source) Obstructive sleep apnea (adult) (pediatric); Translations: [OBSTRUCTIVE SLEEP APNEA] Onset: 3 Chronic Residual codes; unclassified (20 sources) Sleep apnea; Translations: [Sleep apnea, unspecified] Onset: 4 09-08-2023 Chronic Residual codes; unclassified (7 sources) Obstructive sleep apnea syndrome; Translations: [Obstructive sleep apnea (adult) (pediatric)] 06-01-2024 Chronic Residual codes; unclassified (1 source) Edema, unspecified; Translations: [EDEMA UNSPECIFIED] Onset: 3 Episodic Residual codes; unclassified (1 source) Family history of ischemic heart disease and other diseases of the circulatory system; Translations: [FAM HX ISCHEMIC HRT DZ OTH DZ CIRC] Onset: 3 Episodic Residual codes; unclassified (20 sources) Bilateral lower limb edema; Translations: [Localized edema] Onset: 4 09-08-2023 Episodic Residual codes; unclassified (20 sources) Edema; Translations: [Edema, unspecified] Onset: 1 Resolved: 4 12-14-2023 Episodic Residual codes; unclassified (4 sources) Inflammatory disorder 02-19-2023 Episodic Respiratory failure; insufficiency; arrest (adult) (1 [...] sepsis without septic shock] Onset: 2 Episodic Skin and subcutaneous tissue infections (9 sources) Wound cellulitis; Translations: [Cellulitis, unspecified] 11-10-2017 Episodic Substance-related disorders (20 sources) Nicotine dependence; Translations: [Nicotine dependence, unspecified, uncomplicated] Onset: 4 12-14-2023 Chronic Unclassified (1 source) CONTACT W/AND (SUSP) EXPOS COVID-19; Translations: [CONTACT W/AND (SUSP) EXPOS COVID-19] Onset: 3 Unclassified (1 source) CHRN KIDNEY DISEASE STG 3 UNSP; Translations: [CHRN KIDNEY DISEASE STG 3 UNSP] Onset: 3 Unclassified (1 source) LOW BACK PAIN, UNSPECIFIED; Translations: [LOW BACK PAIN, UNSPECIFIED] Onset: 2 Unclassified (1 source) Other pericardial effusion (noninflammatory); Translations: [Other pericardial effusion (noninflammatory)] Onset: 2 Varicose veins of lower extremity (20 sources) Varicose veins of lower extremity; Translations: [Varicose veins of bilateral lower extremities with pain] Onset: 4 Resolved: 5 09-08-2023 Episodic Past or Other Problems Problem Classification Problem Date Documented Da te Episodic/Chronic Mood disorders (20 sources) Mood disorders Onset: 12-14-2023 Resolved: 12-19-2024 12-14-2023 Neoplasms of unspecified nature or uncertain behavior (20 sources) Neoplastic disease of uncertain behavior; Translations: [Neoplasm of uncertain behavior, unspecified] Onset: 12-19-2024 12-19-2024 Episodic Nutritional deficiencies (20 sources) Iron deficiency; Translations: [Iron deficiency] Onset: 09-08-2023 09-08-2023 Episodic Other lower respiratory disease (20 sources) Cough; Translations: [Cough] Onset: 07-03-2021 12-14-2023 Episodic Other lower respiratory disease (2 [...] neoplasm of prostate] Onset: 06-01-2024 06-01-2024 Episodic Residual codes; unclassified (2 sources) Localized edema; Translations: [Localized edema] Onset: 10-03-2024 09-10-2024 Episodic Residual codes; unclassified (1 source) Localized edema; Translations: [Localized edema] Onset: 10-03-2024 Episodic Syncope (20 sources) Syncope and collapse; Translations: [Syncope and collapse] Onset: 03-20-2021 12-14-2023 Episodic Unclassified (1 source) Other pericardial effusion (noninflammatory); Translations: [Other pericardial effusion (noninflammatory)] Onset: 01-23-2025 Results Test Name Value Interpretation Reference Range Facility US ankle/arm indiceson 05-31 US ankle/arm indices [facility] [address] [place] [address] Ultrasound Report Signed Patient: Arianne Mcqueen MR#: [id number] : 1945 Acct:[id number] Age/Sex: 80 / M ADM Date: 05/31/25 Loc: [facility] Room: Type: [facility] Attending Dr: Biju Monroe MD Ordering Provider: Biju Monroe MD Date of Service: 05/31/25 US/US ankle/arm indices: I73.9 - Peripheral vascular disease, unspecified Copies to: Biju Monroe MD LOWER EXTREMITY SEGMENTAL ARTERIAL DOPSCAN (PVR) INDICATION: [...] Monroe MD,FACS,FSVS 05/31/2025 1:58 PM Dictation Location: [place] [address] Tech: Swetha Vincent Transcribed By: MICAH 05/31/25 1358 Dictated By: Biju Monroe MD 05/31/25 1357 Signed By: 05/31/25 1358 Normal [facility] Basophils Auto (Bld) [#/Vol] Ordered By: Aries Perez on 05-28-2025 Basophils (Bld) [#/Vol] 0.0 10 3/uL 0.0-0.1 [facility] Basophils/100 WBC Auto (Bld) Ordered By: Aries Perez on 05-28-2025 Basophils/100 WBC (Bld) 0.4 % 0.2-2.0 F [facility] Eosinophils/100 WBC Auto (Bl d)Ordered By: Aries Perez on 05-28-2025 Eosinophils/100 WBC (Bld) 1.3 % 0.9-7.0 [facility] Erythrocyte distribution wid th Auto (RBC) [Ratio]Ordered By: Aries Perez on 05-28-2025 Erythrocyte distribution width (RBC) [Ratio] 14.1 % 11.0-15.0 [facility] Globulin Calc (S) [Mass/Vol] Ordered By: Aries Perez on 05-28-2025 Globulin (S) [Mass/Vol] 5.7 g/dL F [facility] Glomerular filtration rate ( GFR) estimation in non- AmericanOrdered By: Aries Perez on 05-28-2025 GFR/1.73 sq M.predicted among non-blacks MDRD (S/P/Bld) [Vol rate/Area] 41 mL/min/{1.73_m2} Low >=60 mL/min/1.73m 2 [facility] Hematocrit Auto (Bld) [Volum e fraction]Ordered By: Aries Perez on 05-28-2025 Hematocrit (Bld) [Volume fraction] 36.9 % Low 42.0-54.0 [facility] Hemoglobin [Mass/volume] in BloodOrdered By: Aries Perez on 05-28-2025 Hemoglobin (Bld) [Mass/Vol] 11.7 g/dL Low 14.0-18.0 [facility] - Chemistry and C hemistry - challengeOrdered By: Aries Perez on 05-28-2025 Albumin [Mass/Vol] 2.5 g/dL Low 3.4-5.0 [facility] ALP [Catalytic activity/Vol] 64 U/L 46-116 [facility] ALT [Catalytic activity/Vol] 31 U/L 16-63 [facility] AST [Catalytic activity/Vol] 28 U/L 15-37 [facility] Bilirubin [Mass/Vol] 0.5 mg/dL 0.2-1.0 [facility] Calcium [Mass/Vol] 8.6 mg/dL 8.5-10.1 [facility] Chloride [Moles/Vol] 103 mmol/L 98-107 [facility] CO2 [Moles/Vol] 23.4 mmol/L 21.0-32.0 [facility] Creatinine [Mass/Vol] 1.61 mg/dL High 0.70-1.30 [facility] GFR/1.73 sq M.predicted MDRD (S/P/Bld) [Vol rate/Area] 50 mL/min/{1.73_m2} Low >=60 mL/min/1.73m 2 [facility] Glucose [Mass/Vol] 102 mg/dL 74-106 [facility] Potassium [Moles/Vol] 4.3 mmol/L 3.5-5.1 [facility] Protein [Mass/Vol] 8.2 g/dL 6.4-8.2 [facility] Sodium [Moles/Vol] 136 mmol/L 136-145 [facility] Urea nitrogen [Mass/Vol] 30.0 mg/dL High 7.0-18.0 [facility] Urea nitrogen/Creatinine [Mass ratio] 18.6 mg/mg [facility] - Hematology and Cell countsOrdered By: Aries Perez on 05-28-2025 Immature granulocytes/100 WBC (Bld) 1.6 % High 0.0-0.5 [facility] Leukocytes [#/volume] correc buck for nucleated erythrocytes in Blood by Automated counOrdered By: Aries Perez on 05-28-2025 WBC corrected for nucl RBC Auto (Bld) [#/Vol] 7.9 10 3/uL 4.0-11.0 [facility] Lymphocytes Auto (Bld) [#/Vo l]Ordered By: Aries Perez on 05-28-2025 Lymphocytes (Bld) [#/Vol] 1.2 10 3/uL 1.2-3.8 [facility] Lymphocytes/100 WBC Auto (Bl d)Ordered By: Aries Perez on 05-28-2025 Lymphocytes/100 WBC (Bld) 15.4 % Low 20.5-60.0 [facility] MCH Auto (RBC) [Entitic mass ]Ordered By: Aries Perez on 05-28-2025 MCH (RBC) [Entitic mass] 30.4 pg 25.9-34.0 [facility] MCHC Auto (RBC) [Mass/Vol]Or dered By: Aries Perez on 05-28-2025 MCHC (RBC) [Mass/Vol] 31.7 g/dL 29.9-35.2 [facility] MCV Auto (RBC) [Entitic vol] Ordered By: Aries Perez on 05-28-2025 MCV (RBC) [Entitic vol] 95.8 fL High 80.0-94.0 [facility] Monocytes Auto (Bld) [#/Vol] Ordered By: Aries Perez on 05-28-2025 Monocytes (Bld) [#/Vol] 0.6 10 3/uL 0.3-0.8 [facility] Monocytes/100 WBC Auto (Bld) Ordered By: Areis Perez on 05-28-2025 Monocytes/100 WBC (Bld) 7.9 % 1.7-12.0 [facility] Neutrophils Auto (Bld) [#/Vo l]Ordered By: Aries Perez on 05-28-2025 Neutrophils (Bld) [#/Vol] 5.8 10 3/uL 1.4-6.5 [facility] Neutrophils/100 WBC Auto (Bl d)Ordered By: Aries Perez on 05-28-2025 Neutrophils/100 WBC (Bld) 73.4 % 43.0-75.0 [facility] No Panel InformationOrdered By: Aries Perez on 05-28-2025 Eosinophils # (Auto) 0.1 10 3/uL 0.0-0.7 [facility] Immature Granulocyte # (Auto) 0.13 10 3/uL High 0.00-0.03 [facility] Platelet mean volume Auto (B ld) [Entitic vol]Ordered By: Aries Perez on 05-28-2025 Platelet mean volume (Bld) [Entitic vol] 8.9 fL Low 9.5-13.5 [facility] Platelets Auto (Bld) [#/Vol] Ordered By: Aries Perez on 05-28-2025 Platelets (Bld) [#/Vol] 366 10 3/uL 150-450 [facility] RBC Auto (Bld) [#/Vol]Ordere d By: Aries Perez on 05-28-2025 RBC (Bld) [#/Vol] 3.85 10 6/uL Low 4.70-6.10 [facility] Serum or plasma albumin/glob ulin mass ratioOrdered By: Aries Perez on 05-28-2025 Albumin/Globulin [Mass ratio] 0.4 {ratio} [facility] Serum or plasma anion gap de terminationOrdered By: Aries Perez on 05-28-2025 Anion gap [Moles/Vol] 13.9 mmol/L [facility] Erythrocyte distribution wid th Auto (RBC) [Ratio]Ordered By: King Aragon on 05-26-2025 Erythrocyte distribution width (RBC) [Ratio] 14.3 % 11.0-15.0 [facility] Glomerular filtration rate ( GFR) estimation in non- AmericanOrdered By: King Aragon on 05-26-2025 GFR/1.73 sq M.predicted among non-blacks MDRD (S/P/Bld) [Vol rate/Area] 44 mL/min/{1.73_m2} Low >=60 mL/min/1.73m 2 [facility] Hematocrit Auto (Bld) [Volum e fraction]Ordered By: King Aragon on 05-26-2025 Hematocrit (Bld) [Volume fraction] 33.2 % Low 42.0-54.0 [facility] Hemoglobin [Mass/volume] in BloodOrdered By: King Aragon on 05-26-2025 Hemoglobin (Bld) [Mass/Vol] 10.8 g/dL Low 14.0-18.0 [facility] - Chemistry and C hemistry - challengeOrdered By: King Aragon on 05-26-2025 Calcium [Mass/Vol] 8.6 mg/dL 8.5-10.1 [facility] Chloride [Moles/Vol] 103 mmol/L 98-107 [facility] CO2 [Moles/Vol] 21.4 mmol/L 21.0-32.0 [facility] Creatinine [Mass/Vol] 1.52 mg/dL High 0.70-1.30 [facility] GFR/1.73 sq M.predicted MDRD (S/P/Bld) [Vol rate/Area] 54 mL/min/{1.73_m2} Low >=60 mL/min/1.73m 2 [facility] Glucose [Mass/Vol] 157 mg/dL High 74-106 [facility] Potassium [Moles/Vol] 4.9 mmol/L 3.5-5.1 [facility] Sodium [Moles/Vol] 133 mmol/L Low 136-145 [facility] Urea nitrogen [Mass/Vol] 28.0 mg/dL High 7.0-18.0 [facility] Urea nitrogen/Creatinine [Mass ratio] 18.4 mg/mg [facility] Leukocytes [#/volume] correc buck for nucleated erythrocytes in Blood by Automated counOrdered By: King Aragon on 05-26-2025 WBC corrected for nucl RBC Auto (Bld) [#/Vol] 10.5 10 3/uL 4.0-11.0 [facility] MCH Auto (RBC) [Entitic mass ]Ordered By: King Araogn on 05-26-2025 MCH (RBC) [Entitic mass] 31.0 pg 25.9-34.0 [facility] MCHC Auto (RBC) [Mass/Vol]Or dered By: King Aragon on 05-26-2025 MCHC (RBC) [Mass/Vol] 32.5 g/dL 29.9-35.2 [facility] MCV Auto (RBC) [Entitic vol] Ordered By: King Aragon on 05-26-2025 MCV (RBC) [Entitic vol] 95.4 fL High 80.0-94.0 [facility] No Panel InformationOrdered By: King Aragon on 05-26-2025 C-Reactive Protein, Quantitative 9.12 mg/dL High <=0.50 [facility] Platelet mean volume Auto (B ld) [Entitic vol]Ordered By: King Aragon on 05-26-2025 Platelet mean volume (Bld) [Entitic vol] 9.1 fL Low 9.5-13.5 [facility] Platelets Auto (Bld) [#/Vol] Ordered By: King Aragon on 05-26-2025 Platelets (Bld) [#/Vol] 273 10 3/uL 150-450 [facility] RBC Auto (Bld) [#/Vol]Ordere d By: King Aragon on 05-26-2025 RBC (Bld) [#/Vol] 3.48 10 6/uL Low 4.70-6.10 [facility] Serum or plasma anion gap de terminationOrdered By: King Aragon on 05-26-2025 Anion gap [Moles/Vol] 13.5 mmol/L [facility] Glomerular filtration rate ( GFR) estimation in non- AmericanOrdered By: King Aragon on 05-25-2025 GFR/1.73 sq M.predicted among non-blacks MDRD (S/P/Bld) [Vol rate/Area] 49 mL/min/{1.73_m2} Low >=60 mL/min/1.73m 2 [facility] - Chemistry and C hemistry - challengeOrdered By: King Aragon on 05-25-2025 Calcium [Mass/Vol] 8.3 mg/dL Low 8.5-10.1 [facility] Chloride [Moles/Vol] 104 mmol/L 98-107 [facility] CO2 [Moles/Vol] 21.6 mmol/L 21.0-32.0 [facility] Creatinine [Mass/Vol] 1.40 mg/dL High 0.70-1.30 [facility] GFR/1.73 sq M.predicted MDRD (S/P/Bld) [Vol rate/Area] 59 mL/min/{1.73_m2} Low >=60 mL/min/1.73m 2 [facility] Glucose [Mass/Vol] 113 mg/dL High 74-106 [facility] Potassium [Moles/Vol] 4.3 mmol/L 3.5-5.1 [facility] Sodium [Moles/Vol] 135 mmol/L Low 136-145 [facility] Urea nitrogen [Mass/Vol] 27.0 mg/dL High 7.0-18.0 [facility] Urea nitrogen/Creatinine [Mass ratio] 19.3 mg/mg [facility] Serum or plasma anion gap de terminationOrdered By: King Aragon on 05-25-2025 Anion gap [Moles/Vol] 13.7 mmol/L [facility] Basophils Auto (Bld) [#/Vol] Ordered By: King Aragon on 05-24-2025 Basophils (Bld) [#/Vol] 0.0 10 3/uL 0.0-0.1 [facility] Basophils/100 WBC Auto (Bld) Ordered By: Knig Aragon on 05-24-2025 Basophils/100 WBC (Bld) 0.3 % 0.2-2.0 [facility] Eosinophils/100 WBC Auto (Bl d)Ordered By: King Aragon on 05-24-2025 Eosinophils/100 WBC (Bld) 0.2 % Low 0.9-7.0 [facility] Erythrocyte distribution wid th Auto (RBC) [Ratio]Ordered By: King Aragon on 05-24-2025 Erythrocyte distribution width (RBC) [Ratio] 14.2 % 11.0-15.0 [facility] Globulin Calc (S) [Mass/Vol] Ordered By: King Aragon on 05-24-2025 Globulin (S) [Mass/Vol] 5.6 g/dL [facility] Glomerular filtration rate ( GFR) estimation in non- AmericanOrdered By: King Aragon on 05-24-2025 GFR/1.73 sq M.predicted among non-blacks MDRD (S/P/Bld) [Vol rate/Area] 41 mL/min/{1.73_m2} Low >=60 mL/min/1.73m 2 [facility] Hematocrit Auto (Bld) [Volum e fraction]Ordered By: King Aragon on 05-24-2025 Hematocrit (Bld) [Volume fraction] 32.6 % Low 42.0-54.0 [facility] Hemoglobin [Mass/volume] in BloodOrdered By: King Aragon on 05-24-2025 Hemoglobin (Bld) [Mass/Vol] 10.8 g/dL Low 14.0-18.0 [facility] Iron binding capacity [Mass/ volume] in Serum or PlasmaOrdered By: King Aragon on 05-24-2025 Iron binding capacity [Mass/Vol] 156.0 ug/dL Low 250.0-450.0 [facility] Iron saturation [Mass Fracti on] in Serum or PlasmaOrdered By: King Aragon on 05-24-2025 Iron saturation [Mass fraction] 9.6 % [facility] - Chemistry and C hemistry - challengeOrdered By: King Aragon on 05-24-2025 Albumin [Mass/Vol] 2.2 g/dL Low 3.4-5.0 [facility] ALP [Catalytic activity/Vol] 80 U/L 46-116 [facility] ALT [Catalytic activity/Vol] 21 U/L 16-63 [facility] AST [Catalytic activity/Vol] 17 U/L 15-37 [facility] Bilirubin [Mass/Vol] 0.9 mg/dL 0.2-1.0 [facility] Calcium [Mass/Vol] 8.3 mg/dL Low 8.5-10.1 [facility] Chloride [Moles/Vol] 101 mmol/L 98-107 [facility] CO2 [Moles/Vol] 23.0 mmol/L 21.0-32.0 [facility] Cobalamin (Vitamin B12) [Mass/Vol] 715 pg/mL 232-1245 [facility] Comment on above: Performed at: - [employer] [place] [id number] Director: Rony Clifford PhD, Phone: [phone] Creatinine [Mass/Vol] 1.64 mg/dL High 0.70-1.30 [facility] Ferritin [Mass/Vol] 887.0 ng/mL High 26.0-388.0 [facility] GFR/1.73 sq M.predicted MDRD (S/P/Bld) [Vol rate/Area] 49 mL/min/{1.73_m2} Low >=60 mL/min/1.73m 2 [facility] Glucose [Mass/Vol] 109 mg/dL High 74-106 [facility] Iron [Mass/Vol] 15.0 ug/dL Low 65.0-175.0 [facility] Potassium [Moles/Vol] 4.2 mmol/L 3.5-5.1 [facility] Protein [Mass/Vol] 7.8 g/dL 6.4-8.2 [facility] Sodium [Moles/Vol] 132 mmol/L Low 136-145 [facility] Urea nitrogen [Mass/Vol] 38.0 mg/dL High 7.0-18.0 [facility] Urea nitrogen/Creatinine [Mass ratio] 23.2 mg/mg [facility] - Hematology and Cell countsOrdered By: King Aragon on 05-24-2025 Immature granulocytes/100 WBC (Bld) 0.9 % High 0.0-0.5 [facility] Leukocytes [#/volume] correc buck for nucleated erythrocytes in Blood by Automated counOrdered By: King Aragon on 05-24-2025 WBC corrected for nucl RBC Auto (Bld) [#/Vol] 13.9 10 3/uL High 4.0-11.0 [facility] Lymphocytes Auto (Bld) [#/Vo l]Ordered By: King Aragon on 05-24-2025 Lymphocytes (Bld) [#/Vol] 1.0 10 3/uL Low 1.2-3.8 [facility] Lymphocytes/100 WBC Auto (Bl d)Ordered By: King Aragon on 05-24-2025 Lymphocytes/100 WBC (Bld) 6.8 % Low 20.5-60.0 [facility] MCH Auto (RBC) [Entitic mass ]Ordered By: King Aragon on 05-24-2025 MCH (RBC) [Entitic mass] 30.9 pg 25.9-34.0 [facility] MCHC Auto (RBC) [Mass/Vol]Or dered By: King Aragon on 05-24-2025 MCHC (RBC) [Mass/Vol] 33.1 g/dL 29.9-35.2 [facility] MCV Auto (RBC) [Entitic vol] Ordered By: King Aragon on 05-24-2025 MCV (RBC) [Entitic vol] 93.1 fL 80.0-94.0 [facility] Monocytes Auto (Bld) [#/Vol] Ordered By: King Aragon on 05-24-2025 Monocytes (Bld) [#/Vol] 0.9 10 3/uL High 0.3-0.8 [facility] Monocytes/100 WBC Auto (Bld) Ordered By: King Aragon on 05-24-2025 Monocytes/100 WBC (Bld) 6.8 % 1.7-12.0 [facility] Neutrophils Auto (Bld) [#/Vo l]Ordered By: King Aragon on 05-24-2025 Neutrophils (Bld) [#/Vol] 11.8 10 3/uL High 1.4-6.5 [facility] Neutrophils/100 WBC Auto (Bl d)Ordered By: King Aragon on 05-24-2025 Neutrophils/100 WBC (Bld) 85.0 % High 43.0-75.0 [facility] No Panel InformationOrdered By: King Aragon on 05-24-2025 C-Reactive Protein, Quantitative 22.07 mg/dL High <=0.50 [facility] Eosinophils # (Auto) 0.0 10 3/uL 0.0-0.7 [facility] Folate 6.60 ng/mL Low 8.60-58.90 [facility] Immature Granulocyte # (Auto) 0.12 10 3/uL High 0.00-0.03 [facility] Platelet mean volume Auto (B ld) [Entitic vol]Ordered By: King Aragon on 05-24-2025 Platelet mean volume (Bld) [Entitic vol] 9.4 fL Low 9.5-13.5 [facility] Platelets Auto (Bld) [#/Vol] Ordered By: King Aragon on 05-24-2025 Platelets (Bld) [#/Vol] 226 10 3/uL 150-450 [facility] RBC Auto (Bld) [#/Vol]Ordere d By: King Aragon on 05-24-2025 RBC (Bld) [#/Vol] 3.50 10 6/uL Low 4.70-6.10 [facility] Serum or plasma albumin/glob ulin mass ratioOrdered By: King Aragon on 05-24-2025 Albumin/Globulin [Mass ratio] 0.4 {ratio} [facility] Serum or plasma anion gap de terminationOrdered By: King Aragon on 05-24-2025 Anion gap [Moles/Vol] 12.2 mmol/L [facility] Basophils Auto (Bld) [#/Vol] Ordered By: Jefry Hardin on 05-23-2025 Basophils (Bld) [#/Vol] 0.0 10 3/uL 0.0-0.1 [facility] Basophils/100 WBC Auto (Bld) Ordered By: Jefry Hardin on 05-23-2025 Basophils/100 WBC (Bld) 0.3 % 0.2-2.0 [facility] Blood Cultureon 05-23-2025 Bacteria identified Cx Nom (Bld) Gram Stain Gram Positive Bacilli ORGANISM: Bacillus sp not B. anthracis (O:BACSPNBANT) PERFORMED BY: [place] [id number] PATHOLOGIST CAB SUPERVISOR MAYKEL WYATT M.D. Normal [facility] Comment on above: Performed By: #### C UBLD #### [address] Eosinophils/100 WBC Auto (Bl d)Ordered By: Jefry Hardin on 05-23-2025 Eosinophils/100 WBC (Bld) 0.0 % Low 0.9-7.0 [facility] Erythrocyte distribution wid th Auto (RBC) [Ratio]Ordered By: Jefry Hardin on 05-23-2025 Erythrocyte distribution width (RBC) [Ratio] 14.2 % 11.0-15.0 [facility] Glomerular filtration rate ( GFR) estimation in non- AmericanOrdered By: Jefry Hardin on 05-23-2025 GFR/1.73 sq M.predicted among non-blacks MDRD (S/P/Bld) [Vol rate/Area] 29 mL/min/{1.73_m2} Low >=60 mL/min/1.73m 2 [facility] Hematocrit Auto (Bld) [Volum e fraction]Ordered By: Jefry Hardin on 05-23-2025 Hematocrit (Bld) [Volume fraction] 34.1 % Low 42.0-54.0 [facility] Hemoglobin [Mass/volume] in BloodOrdered By: Jefry Hardin on 05-23-2025 Hemoglobin (Bld) [Mass/Vol] 11.1 g/dL Low 14.0-18.0 [facility] - Chemistry and C hemistry - challengeOrdered By: Jefry Hardin on 05-23-2025 Bilirubin Ql (U) Negative NEGATIVE [facility] Glucose (U) [Mass/Vol] Negative NEGATIVE [facility] Ketones Ql (U) Negative NEGATIVE [facility] pH (U) 6.0 [pH] 5.0-9.0 [facility] Specific gravity (U) [Rel density] 1.015 1.005-1.025 [facility] Urobilinogen Qn (U) 2.0 {Timmy'U}/dL Abnormal 0.2-1.0 [facility] Calcium [Mass/Vol] 8.1 mg/dL Low 8.5-10.1 [facility] Chloride [Moles/Vol] 98 mmol/L 98-107 [facility] CO2 [Moles/Vol] 24.7 mmol/L 21.0-32.0 [facility] Creatinine [Mass/Vol] 2.16 mg/dL High 0.70-1.30 [facility] GFR/1.73 sq M.predicted MDRD (S/P/Bld) [Vol rate/Area] 36 mL/min/{1.73_m2} Low >=60 mL/min/1.73m 2 [facility] Glucose [Mass/Vol] 111 mg/dL High 74-106 [facility] Natriuretic peptide B (Bld) [Mass/Vol] 1042.0 pg/mL <=1800.0 [facility] Potassium [Moles/Vol] 4.3 mmol/L 3.5-5.1 [facility] Sodium [Moles/Vol] 131 mmol/L Low 136-145 [facility] Urea nitrogen [Mass/Vol] 44.0 mg/dL High 7.0-18.0 [facility] Urea nitrogen/Creatinine [Mass ratio] 20.4 mg/mg [facility] - Chemistry and C hemistry - challengeOrdered By: King Aragon on 05-23-2025 Lactate [Moles/Vol] 1.4 mmol/L 0.4-2.0 [facility] Laboratory - Hematology and Cell countsOrdered By: Jefry Hardin on 05-23-2025 Immature granulocytes/100 WBC (Bld) 0.9 % High 0.0-0.5 [facility] - Microbiology an d Antimicrobial susceptibilityOrdered By: King Aragon on 05-23-2025 Bacteria identified Cx Nom (Bld) Bacillus sp not B. anthracis Abnormal [facility] - Specimen inform ationOrdered By: Jefry Hardin on 05-23-2025 Appearance (U) CLEAR CLEAR [facility] Color (U) YELLOW YELLOW [facility] - UrinalysisOrder ed By: Jefry Hardin on 05-23-2025 Leukocyte esterase Test strip Ql (U) Negative NEGATIVE [facility] Mucus Ql (Urine sed) NONE SEEN NONE SEEN [facility] Nitrite Ql (U) Negative NEGATIVE [facility] Protein Ql (U) TRACE mg/dL NEG/TRACE [facility] Leukocytes [#/volume] correc buck for nucleated erythrocytes in Blood by Automated counOrdered By: Jefry Hardin on 05-23-2025 WBC corrected for nucl RBC Auto (Bld) [#/Vol] 11.6 10 3/uL High 4.0-11.0 [facility] Lymphocytes Auto (Bld) [#/Vo l]Ordered By: Jefry Hardin on 05-23-2025 Lymphocytes (Bld) [#/Vol] 0.7 10 3/uL Low 1.2-3.8 [facility] Lymphocytes/100 WBC Auto (Bl d)Ordered By: Jefry Hardin on 05-23-2025 Lymphocytes/100 WBC (Bld) 6.0 % Low 20.5-60.0 [facility] MCH Auto (RBC) [Entitic mass ]Ordered By: Jefry Hardin on 05-23-2025 MCH (RBC) [Entitic mass] 30.8 pg 25.9-34.0 [facility] MCHC Auto (RBC) [Mass/Vol]Or dered By: Jefry Hardin on 05-23-2025 MCHC (RBC) [Mass/Vol] 32.6 g/dL 29.9-35.2 [facility] MCV Auto (RBC) [Entitic vol] Ordered By: Jefry Hardin on 05-23-2025 MCV (RBC) [Entitic vol] 94.7 fL High 80.0-94.0 [facility] Monocytes Auto (Bld) [#/Vol] Ordered By: Jefry Hardin on 05-23-2025 Monocytes (Bld) [#/Vol] 0.9 10 3/uL High 0.3-0.8 [facility] Monocytes/100 WBC Auto (Bld) Ordered By: Jefry Hardin on 05-23-2025 Monocytes/100 WBC (Bld) 7.8 % 1.7-12.0 [facility] Neutrophils Auto (Bld) [#/Vo l]Ordered By: Jefry Hardin on 05-23-2025 Neutrophils (Bld) [#/Vol] 9.9 10 3/uL High 1.4-6.5 [facility] Neutrophils/100 WBC Auto (Bl d)Ordered By: Jefry Hardin on 05-23-2025 Neutrophils/100 WBC (Bld) 85.0 % High 43.0-75.0 [facility] No Panel InformationOrdered By: Jefry Hardin on 05-23-2025 Urine Bacteria TRACE #/HPF Abnormal NONE SEEN [facility] Urine Occult Blood Negative NEGATIVE [facility] Urine Other Casts NONE SEEN #/LPF NONE SEEN [facility] Urine Other Crystals None Seen #/HPF None Seen [facility] Urine RBC 0-2 #/HPF 0-2 [facility] Urine Squamous Epithelial Cells RARE #/LPF NONE/RARE [facility] Urine WBC 2-5 #/HPF Abnormal NONE SEEN [facility] Eosinophils # (Auto) 0.0 10 3/uL 0.0-0.7 [facility] Immature Granulocyte # (Auto) 0.11 10 3/uL High 0.00-0.03 [facility] Troponin I High Sensitivity 5.6 pg/mL 4.0-76.1 [facility] Comment on above: CUT-OFF POINTS HAVE BEEN ESTABLISHED BASED ON THE FOURTHUNIVERSAL DEFINITION OF MYOCARDIAL INFARCTION. THE UPPERREFERENCE LIMIT (URL) OF TROPONIN, DEFINED THE 99THPERCENTILE OF cTnI DISTRIBUTION IN A REFERENCE POPULATION,HAS BEEN CONFIRMED THE DECISION THRESHOLD FOR MIDIAGNOSIS.99TH PERCENTILE = 76.2 PG/MLNOTE: HIGH-SENSITIVITY TROPONIN ASSAY IS NOT INTENDED TO BEUSED IN ISOLATION BUT SHOULD BE INTERPRETED IN CONJUNCTIONWITH OTHER DIAGNOSTIC AND CLINICAL INFORMATION. Platelet mean volume Auto (B ld) [Entitic vol]Ordered By: Jefry Hardin on 05-23-2025 Platelet mean volume (Bld) [Entitic vol] 9.2 fL Low 9.5-13.5 [facility] Platelets Auto (Bld) [#/Vol] Ordered By: Jefry Hardin on 05-23-2025 Platelets (Bld) [#/Vol] 218 10 3/uL 150-450 [facility] RBC Auto (Bld) [#/Vol]Ordere d By: Jefry Hardin on 05-23-2025 RBC (Bld) [#/Vol] 3.60 10 6/uL Low 4.70-6.10 [facility] Serum or plasma anion gap de terminationOrdered By: Jefry Hardin on 05-23-2025 Anion gap [Moles/Vol] 12.6 mmol/L [facility] HbA1c (Bld) [Mass fraction]o n 03-21-2025 Interpretation and review of laboratory results Abnormal [facility] Hematology and Cell countson 03-21-2025 HbA1c (Bld) [Mass fraction] 6 % [facility] 36on 02-28-2025 36 Regarding labs results and echo from 02/21/2025: MD Katty Tan MA His echo and blood testing show stable cardiac and renal function. Continue same treatment and follow up in 6 months. Spoke with patient and informed him of result. He verbalized understanding. Normal [facility] ALL BASIC METABOLIC PANELon 02-21-2025 Anion gap [Moles/Vol] 11.9 mmol/L NO [facility] Calcium [Mass/Vol] 8.9 mg/dL 8.5 - 10. 1 mg/dL [facility] Chloride [Moles/Vol] 98 mmol/L 98 - 10 7 mmol/L [facility] CO2 [Moles/Vol] 28.9 mmol/L 21.0 - 32.0 mmol/L [facility] Creatinine [Mass/Vol] 1.7 mg/dL High 0.70 - 1.30 mg/dL [facility] GFR/1.73 sq M.predicted CKD-EPI (S/P/Bld) [Vol rate/Area] 47 Low >=60 mL/min/1.73m 2 [facility] Glucose [Mass/Vol] 141 mg/dL High 74 - 106 mg/dL [facility] Interpretation and review of laboratory results Abnormal [facility] Potassium [Moles/Vol] 4.8 mmol/L 3.5 - 5.1 mmol/L [facility] Sodium [Moles/Vol] 134 mmol/L Low 136 - 145 mmol/L [facility] TBH EGFR-NON AF PALAUAN 39 Low >=6 0 mL/min/1.73m 2 [facility] Urea nitrogen [Mass/Vol] 39 mg/dL High 7.0 - 18.0 mg/dL [facility] Urea nitrogen/Creatinine [Mass ratio] 22.9 mg/mg [facility] CA ECHO DOPPLER COMPLETEon 0 02-21-2025 [place] [address] Cardiology Report Signed Patient: ARIANNE MCQUEEN MR#: [id number] : 1945 Acct:[id number] Age/Sex: 79 / M ADM Date: 02/21/25 Loc: CARD Attending Dr: CATINA HEARN Ordering Physician: CATINA HEARN Date of Service: 02/21/25 Procedure(s): CA echo doppler complete Accession Number(s): [id number] cc: Teressa Sierra VOCATIONAL COUNSELOR; CATINA HEARN Patient Name: ARIANNE MCQUEEN MR#: [id number] : 1945 Exam Date: 02/21/2025 Ordering Doctor: DR CATINA HEARN M.D. ECHOCARDIOGRAM REPORT PROCEDURE: CA ECHO DOPPLER COMPLETE INDICATIONS: Chronic diastolic heart failure, h/o pericardial effusion, CABG, [place], COPD, hypertension, diabetes COMPARISON: None. DESCRIPTION: COMPLETE [...] Area (VTI): 4.57 cm2, 4.57 cm2 Deceleration [place]: Pressure Half-Time: Peak Velocity(Antegrade Flow): 0.89 m/s Peak Gradient(Antegrade Flow): 3.13 mm[Hg] Mean Velocity(Antegrade Flow): 0.56 m/s Mean Gradient(Antegrade Flow): 1.52 mm[Hg] Velocity Time Integral: 21.41 cm Tricuspid Valve Peak Velocity (Regurgitant Flow): 2.80 m/s Peak Velocity: Pulmonic Valve Mean Gradient: 1. (more content not included)... [facility] Radiology, Radiologist, - 02/21/2025 [place] [address] Cardiology Report Signed Patient: ARIANNE MCQUEEN MR#: [id number] : 1945 Acct:[id number] Age/Sex: 79 / M ADM Date: 02/21/25 Loc: CARD Attending Dr: CATINA HEARN Ordering Physician: CATINA HEARN Date of Service: 02/21/25 Procedure(s): CA echo doppler complete Accession Number(s): [id number] cc: Teressa Sierra VOCATIONAL COUNSELOR; CATINA HEARN Patient Name: ARIANNE MCQUEEN MR#: [id number] : 1945 Exam Date: 02/21/2025 Ordering Doctor: DR CATINA HEARN M.D. ECHOCARDIOGRAM REPORT PROCEDURE: CA ECHO DOPPLER COMPLETE INDICATIONS: Chronic diastolic heart failure, h/o pericardial effusion, CABG, [place], COPD, hypertension, diabetes COMPARISON: None. DESCRIPTION: COMPLETE [...] Area (VTI): 4.57 cm2, 4.57 cm2 Deceleration [place]: Pressure Half-Time: Peak Velocity(Antegrade Flow): 0.89 m/s [...] Signed By: 02/21/25 1441 DD/ 1440 TD/TT: [employer] Assistant: [facility] Radiology Study observation (narrative) [facility] CA ECHO DOPPLER COMPLETEOrde red By: Radiologist Radiology on 02-21-2025 [facility] Generic Media Work Phone: No Panel Informationon 02-08 Lesion [...] 7.0 ml Estimated blood loss: 1.0 ml [facility] Complexity: Intermediate Final length (cm): 4 Reason [...] bleeding, or complications. Dressing type: pressure dressing [facility] Office Visiton 01-23-2025 Follow-up visit [id number] Arianne Mcqueen 1945 M Date Provider Department Center 01/23/2025 CATINA ROBERTS SHILPI Santiago Family History Problem Relation Age of Onset Coronary artery disease Mother Family Status - Relation Status Age at Mother Father Level of Service:96579 CT OFFICE/OUTPATIENT ESTABLISHED MOD MDM 30 MIN [facility] Orders Onlyon 01-12-2025 Orders Only [id number] Arianne Mcqueen 1945 Date Provider Department Center 01/12/2025 [id number], HISTORICAL SHILPI Santiago Family History Problem Relation Age of Onset Coronary artery disease Mother Family Status - Relation Status Age at Mother Normal [facility] 36on 01-02-2025 36 Spoke with Ladonna from [facility] and made her aware of furosemide increase. She will draw BMP in 1 week at patient's home. Order faxed to her. I spoke with patient and instructed him to double furosemide to 80mg daily. Advised him Ladonna will draw his blood in 1 week. Scheduled him for follow up with Dr. Hearn on 01/23. Patient verbalized understanding. Normal [facility] 36on 12-30-2024 36 Ladonna with [facility] called asking if patient's diuretics could be increased. She said he was at [facility] ED recently for scrotal edema. She also [...] receive result I will forward to you. Normal [facility] ALL BASIC METABOLIC PANELon 12-30-2024 Anion gap [Moles/Vol] 6.6 mmol/L NOM [facility] Calcium [Mass/Vol] 8.4 mg/dL Low 8.5 - 10. 1 mg/dL [facility] Chloride [Moles/Vol] 100 mmol/L 98 - 10 7 mmol/L [facility] CO2 [Moles/Vol] 30.5 mmol/L 21.0 - 32.0 mmol/L [facility] Creatinine [Mass/Vol] 1.55 mg/dL High 0.70 - 1.30 mg/dL [facility] GFR/1.73 sq M.predicted CKD-EPI (S/P/Bld) [Vol rate/Area] 53 Low >=60 mL/min/1.73m 2 [facility] Glucose [Mass/Vol] 139 mg/dL High 74 - 106 mg/dL [facility] Interpretation and review of laboratory results Abnormal [facility] Potassium [Moles/Vol] 4.1 mmol/L 3.5 - 5.1 mmol/L [facility] Sodium [Moles/Vol] 133 mmol/L Low 136 - 145 mmol/L [facility] EGFR-NON AF PALAUAN 43 Low >=6 0 mL/min/1.73m 2 [facility] Urea nitrogen [Mass/Vol] 29 mg/dL High 7.0 - 18.0 mg/dL [facility] Urea nitrogen/Creatinine [Mass ratio] 18.7 mg/mg [facility] ALL PRO BNPon 12-30-2024 NT PRO B TYPE NATRIURETIC PEPT 464 pg/mL NINF - 1800.0 pg/mL [facility] No Panel Informationon 12-30 [facility] No Panel Informationon 12-28 Type of biopsy: [...] taken Amount of lidocaine used: 2.0 cc [facility] No Panel InformationOrdered By: Debora Gould on 12-28-2024 [facility] HbA1c (Bld) [Mass fraction]o n 12-19-2024 Interpretation and review of laboratory results Abnormal [facility] Cell countson 12-19-2024 HbA1c (Bld) [Mass fraction] 5.9 % [facility] ALL BASIC METABOLIC PANELon 10-11-2024 Anion gap [Moles/Vol] 6.7 mmol/L [facility] Calcium [Mass/Vol] 8.6 mg/dL 8.5 - 10. 1 mg/dL [facility] Chloride [Moles/Vol] 104 mmol/L 98 - 10 7 mmol/L [facility] CO2 [Moles/Vol] 30.2 mmol/L 21.0 - 32.0 mmol/L [facility] Creatinine [Mass/Vol] 1.33 mg/dL High 0.70 - 1.30 mg/dL [facility] GFR/1.73 sq M.predicted CKD-EPI (S/P/Bld) [Vol rate/Area] >60 >=60 mL/min/1.73m 2 [facility] Glucose [Mass/Vol] 132 mg/dL High 74 - 106 mg/dL [facility] Interpretation and review of laboratory results Abnormal [facility] Potassium [Moles/Vol] 4.9 mmol/L 3.5 - 5.1 mmol/L [facility] Sodium [Moles/Vol] 136 mmol/L 136 - 145 mmol/L [facility]H EGFR-NON AF PALAUAN 52 Low >=6 0 mL/min/1.73m 2 [facility] Urea nitrogen [Mass/Vol] 31 mg/dL High 7.0 - 18.0 mg/dL [facility] Urea nitrogen/Creatinine [Mass ratio] 23.3 mg/mg [facility] Office Visiton 10-03-2024 Follow-up visit [id number] Arianne Mcqueen 1945 M Date Provider Department Center 10/03/2024 CATINA ROBERTS SHILPI Santiago Family History Problem Relation Age of Onset Coronary artery disease Mother Family Status - Relation Status Age at Mother Level of Service:64187 CT OFFICE/OUTPATIENT ESTABLISHED MOD MDM 30 MIN Normal [facility] ALL CBC WITH AUTO DIFFon BASOPHILS ABSOLUTE AUTO 0 N [facility] Basophils/100 WBC (Bld) 0.5 % 0.2 - 2.0 % [facility] Eosinophils/100 WBC (Bld) 3.4 % 0.9 - 7.0 % [facility] Erythrocyte distribution width (RBC) [Ratio] 13.8 % 11.0 - 15.0 % [facility] Hematocrit (Bld) [Volume fraction] 36.7 % Low 42.0 - 54.0 % [facility] Hemoglobin (Bld) [Mass/Vol] 11.9 g/dL Low 14.0 - 18.0 g/dL [facility] IMMATURE GRANULOCYTES ABS AUTO 0.03 [facility] Immature granulocytes/100 WBC (Bld) 0.5 % 0.0 - 0.5 % [facility] Interpretation and review of laboratory results Abnormal [facility] LYMPHOCYTES ABSOLUTE AUTO 1.3 [facility] Lymphocytes/100 WBC (Bld) 20.2 % Low 20.5 - 60.0 % [facility] MCH (RBC) [Entitic mass] 30.5 pg 25. 9 - 34.0 pg [facility] MCHC (RBC) [Mass/Vol] 32.4 g/dL 29.9 - 35.2 g/dL [facility] MCV (RBC) [Entitic vol] 94.1 fL High 80.0 - 94.0 fL [facility] MONOCYTES ABSOLUTE AUTO 0.7 N [facility] Monocytes/100 WBC (Bld) 10.9 % 1.7 - 12.0 % [facility] NEUTROPHILS ABSOLUTE AUTO 4.2 [facility] Neutrophils/100 WBC (Bld) 64.5 % 43.0 - 75.0 % [facility] Platelet mean volume (Bld) [Entitic vol] 9.4 fL Low 9.5 - 13.5 fL [facility] TBH EO # 0.2 [facility] TB PLT 238 [facility] RBC 3.9 Low [facility] WBC 6.4 [facility] ALL CBC WITH AUTO DIFFon Erythrocyte distribution width (RBC) [Ratio] 13.6 % 11.0 - 15.0 % [facility] Hematocrit (Bld) [Volume fraction] 36.9 % Low 42.0 - 54.0 % [facility] Hemoglobin (Bld) [Mass/Vol] 12.2 g/dL Low 14.0 - 18.0 g/dL [facility] Interpretation and review of laboratory results Abnormal [facility] MCH (RBC) [Entitic mass] 31.2 pg 25. 9 - 34.0 pg [facility] MCHC (RBC) [Mass/Vol] 33.1 g/dL 29.9 - 35.2 g/dL [facility] MCV (RBC) [Entitic vol] 94.4 fL High 80.0 - 94.0 fL [facility] Platelet mean volume (Bld) [Entitic vol] 8.7 fL Low 9.5 - 13.5 fL [facility] TB PLT 195 [facility] RBC 3.91 Low [facility] WBC 7.2 [facility] 36on 03-29-2024 36 Regarding stress haroldo t result from 03/17/2024: CUAUHTEMOC Freeman MA Stress test looks fine No ischemia noted and no reversible defect noted. Patient informed. Normal [facility] Office Visiton 03-09-2024 Follow-up visit [id number] Arianne Mcqueen 1945 M Date Provider Department Center 03/09/2024 ARIELLA GRAVES SHILPI Santiago Family History Problem Relation Age of Onset Coronary artery disease Mother Family Status - Relation Status Age at Mother Level of Service:66909 CT OFFICE/OUTPATIENT ESTABLISHED MOD MDM 30 MIN Reason for Visit and Comments: Follow-up [319716] - 3 month follow up Normal [facility] Orders Onlyon 03-09-2024 Orders Only [id number] Arianne Mcqueen 1945 M Date Provider Department Center 03/09/2024 LIBRADO CALDERON Family History Problem Relation Age of Onset Coronary artery disease Mother Family Status - Relation Status Age at Mother Normal [facility] BNPon 08-20-2022 Natriuretic peptide B (Bld) [Mass/Vol] 1748.0 pg/mL Normal <=1,800.0 [facility] Comment on above: Performed By: #### P OCGLUC #### [facility] [address] [place] [address] Dr. Deidre Tijerina CBC AUTO DIFFon 08-20-2022 BASO # 0.0 103/ul Normal 0.0-0.1 [facility] Comment on above: Performed By: #### C BC #### [facility] [address] [place] [address] Dr. Deidre Tijerina Basophils/100 WBC (Bld) 0.1 % Critically low 0.2-2.0 [facility] Comment on above: Performed By: #### C BC #### [facility] [address] [place] [address] Dr. Deidre Tijerina EO # 0.0 103/ul Normal 0.0-0.7 [facility] Comment on above: Performed By: #### C BC #### [facility] [address] [place] [address] Dr. Deidre Tijerina Eosinophils/100 WBC (Bld) 0.0 % Critically low 0.9-7.0 [facility] Comment on above: Performed By: #### C BC #### [facility] [address] [place] [address] Dr. Deidre Tijerina Erythrocyte distribution width (RBC) [Ratio] 13.6 % Normal 11.0-15.0 [facility] Comment on above: Performed By: #### C BC #### [facility] [address] [place] [address] Dr. Deidre Tijerina Hematocrit (Bld) [Volume fraction] 30.1 % Critically low 42.0-54.0 [facility] Comment on above: Performed By: #### C BC #### [facility] [address] [place] [address] Dr. Deidre Tijerina Hemoglobin (Bld) [Mass/Vol] 9.8 g/dL Critically low 14.0-18.0 [facility] Comment on above: Performed By: #### C BC #### [facility] [address] [place] [address] Dr. Deidre Tijerina IG # 0.13 10e3/ul Critically high 0.00-0.03 [facility] Comment on above: Performed By: #### C BC #### [facility] [address] [place] [address] Dr. Deidre Tijerina IG % 1.0 % Critically high 0.0-0.5 [facility] Comment on above: Performed By: #### C BC #### [facility] [address] [place] [address] Dr. Deidre Tijerina LYMPH # 1.2 103/ul Normal 1.2-3.8 [facility] Comment on above: Performed By: #### C BC #### [facility] [address] [place] [address] Dr. Deidre Tijerina Lymphocytes/100 WBC (Bld) 8.6 % Critically low 20.5-60.0 [facility] Comment on above: Performed By: #### C BC #### [facility] [address] [place] [address] Dr. Deidre Tijerina MANUAL DIFF REQ NO Normal [facility] Comment on above: Performed By: #### C BC #### [facility] [address] [address] [address] Deidre Tijerina MCH (RBC) [Entitic mass] 30.7 pg Normal 25.9-34.0 [facility] Comment on above: Performed By: #### C BC #### [facility] [address] [place] [address] Dr. Deidre Tjierina MCHC (RBC) [Mass/Vol] 32.6 g/dL Normal 29.9-35.2 [facility] Comment on above: Performed By: #### C BC #### [facility] [address] [place] [address] Dr. Deidre Tijerina MCV (RBC) [Entitic vol] 94.4 fL Critically high 80.0-94 .0 [facility] Comment on above: Performed By: #### C BC #### [facility] [address] [place] [address] Dr. Deidre Tijerina MONO # 0.8 103/ul Normal 0.3-0.8 [facility] Comment on above: Performed By: #### C BC #### [facility] [address] [place] [address] Dr. Deidre Tijerina Monocytes/100 WBC (Bld) 6.2 % Normal 1.7-12.0 [facility] Comment on above: Performed By: #### C BC #### [facility] [address] [place] [address] Dr. Deidre Tijerina NEUT # 11.3 103/ul Critically high 1.4-6.5 [facility] Comment on above: Performed By: #### C BC #### [facility] [address] [place] [address] Dr. Deidre Tijerina Neutrophils/100 WBC (Bld) 84.1 % Critically high 43.0-75.0 [facility] Comment on above: Performed By: #### C BC #### [facility] [address] [place] [address] Dr. Deidre Tijerina Platelet mean volume (Bld) [Entitic vol] 9.3 fL Critically low 9.5-13.5 [facility] Comment on above: Performed By: #### C BC #### [facility] [address] [address] [address] Deidre Tijerina PLT 204 103/ul Normal 150-450 [facility] Comment on above: Performed By: #### C BC #### [facility] [address] [place] [address] Dr. Deidre Tijerina RBC 3.19 106/ul Critically low 4.70-6.10 [facility] Comment on above: Performed By: #### C BC #### [facility] [address] [place] [address] Dr. Deidre Tijerina WBC 13.5 103/ul Critically high 4.0-11.0 [facility] Comment on above: Performed By: #### C BC #### [facility] [address] [place] [address] Dr. Deidre Tijerina POINT OF CARE GLUCOSEon 07-25 Glucose [Mass/Vol] 164 mg/dL Critically high 74-106 [facility] Comment on above: Performed By: #### P OCGLUC #### [facility] [address] [place] [address] Dr. Deidre Tijerina PROF CHEM 8 (BAS METB)on Anion gap [Moles/Vol] 10.5 mmol/L Normal [facility] Comment on above: Performed By: #### P OCGLUC #### [facility] [address] [place] [address] Dr. Deidre Tijerina Calcium [Mass/Vol] 8.1 mg/dL Critically low 8.5-10.1 [facility] Comment on above: Performed By: #### P OCGLUC #### [facility] [address] [place] [address] Dr. Deidre Tijerina Chloride [Moles/Vol] 100 mmol/L Normal 98-107 [facility] Comment on above: Performed By: #### P OCGLUC #### [facility] [address] [place] [address] Dr. Deidre Tijerina CO2 [Moles/Vol] 24.4 mmol/L Normal 21.0-32.0 [facility] Comment on above: Performed By: #### P OCGLUC #### [facility] [address] [address] [address] Deidre Tijerina Creatinine [Mass/Vol] 1.17 mg/dL Normal 0.70-1.30 [facility] Comment on above: Performed By: #### P OCGLUC #### [facility] [address] [address] [address] Deidre Tijerina EGFR-AF PALAUAN >60 Normal >=60 [facility] Comment on above: Performed By: #### P OCGLUC #### [facility] [address] [address] [address] Deidre Tijerina EGFR-NON AF PALAUAN 60 mL/min/1.73m2 Normal >=60 [facility] Comment on above: Performed By: #### P OCGLUC #### [facility] [address] [address] [address] Deidre Tijerina Glucose [Mass/Vol] 145 mg/dL Critically high 74-106 [facility] Comment on above: Performed By: #### P OCGLUC #### [facility] [address] [address] [address] Deidre Tijerina Potassium [Moles/Vol] 3.9 mmol/L Normal 3.5-5.1 [facility] Comment on above: Performed By: #### P OCGLUC #### [facility] [address] [address] [address] Deidre Tijerina Sodium [Moles/Vol] 131 mmol/L Critically low 136-145 [facility] Comment on above: Performed By: #### P OCGLUC #### [facility] [address] [address] [address] Deidre Tijerina Urea nitrogen [Mass/Vol] 37.0 mg/dL Critically high 7.0-18 .0 [facility] Comment on above: Performed By: #### P OCGLUC #### [facility] [address] [address] [address] Deidre Tijerina Urea nitrogen/Creatinine [Mass ratio] 31.6 mg/mg Normal [facility] Comment on above: Performed By: #### P OCGLUC #### [facility] [address] [place] [address] Dr. Deidre Tijerina XR CHEST 1 Von [...] ESTUARDO ABEBE Date: 2022-08-20 13:26 Normal [facility] BNPon 08-19-2022 Natriuretic peptide B (Bld) [Mass/Vol] 955.0 pg/mL Normal <=1,800.0 [facility] Comment on above: Performed By: #### C BC #### [facility] [address] [place] [address] Dr. Deidre Tijerina CBC W MANUAL DIFFon 08-19-20 22 ATYPICAL LYMPH # 0.28 103/ul Normal [facility] Comment on above: Performed By: #### P OCGLUC #### [facility] [address] [place] [address] Dr. Deidre Tijerina ATYPICAL LYMPH % 2 % Normal [facility] Comment on above: Performed By: #### P OCGLUC #### [facility] [address] [place] [address] Dr. Deidre Tijerina BAND # 0.0 103/ul Normal 0.0-0.3 [facility] Comment on above: Performed By: #### P OCGLUC #### [facility] [address] [place] [address] Dr. Deidre Tijerina BAND % 0 % Normal 0-5 [facility] Comment on above: Performed By: #### P OCGLUC #### [facility] [address] [place] [address] Dr. Deidre Tijerina BASOM # 0.00 103/ul Normal 0.00-0.10 [facility] Comment on above: Performed By: #### P OCGLUC #### [facility] [address] [address] [address] Deidre Tijerina BASOM % 0.0 % Critically low 0.2-2.0 [facility] Comment on above: Performed By: #### P OCGLUC #### [facility] [address] [address] [address] Deidre Tijerina BLAST # Normal [facility] Comment on above: Performed By: #### P OCGLUC #### [facility] [address] [address] [address] Deidre Tijerina BLAST % Normal [facility] Comment on above: Performed By: #### P OCGLUC #### [facility] [address] [place] [address] Dr. Deidre Tijerina CORRECTED WBC Normal 4.0-11.0 [facility] Comment on above: Performed By: #### P OCGLUC #### [facility] [address] [address] [address] Deidre Tijerina EOS # 0.00 103/ul Normal 0.00-0.70 [facility] Comment on above: Performed By: #### P OCGLUC #### [facility] [address] [place] [address] Dr. Deidre Tijerina EOS% 0.0 % Critically low 0.9-7.0 [facility] Comment on above: Performed By: #### P OCGLUC #### [facility] [address] [place] [address] Dr. Deidre Tijerina HCT 30.4 % Critically low 42.0-54.0 [facility] Comment on above: Performed By: #### P OCGLUC #### [facility] [address] [place] [address] Dr. Deidre Tijerina HGB 9.8 g/dl Critically low 14.0-18.0 [facility] Comment on above: Performed By: #### P OCGLUC #### [facility] [address] [place] [address] Dr. Deidre Tijerina LYMPHM # 0.43 103/ul Critically low 1.20-3.80 [facility] Comment on above: Performed By: #### P OCGLUC #### [facility] [address] [place] [address] Dr. Deidre Tijerina LYMPHM% 3.0 % Critically low 20.5-60.0 [facility] Comment on above: Performed By: #### P OCGLUC #### [facility] [address] [address] [address] Deidre Tijerina MCH 30.8 pg Normal 25.9-34.0 [facility] Comment on above: Performed By: #### P OCGLUC #### [facility] [address] [place] [address] Dr. Deidre Tijerina MCHC 32.2 g/dl Normal 29.9-35.2 [facility] Comment on above: Performed By: #### P OCGLUC #### [facility] [address] [place] [address] Dr. Deidre Tijerina MCV 95.6 fL Critically high 80.0-94.0 [facility] Comment on above: Performed By: #### P OCGLUC #### [facility] [address] [place] [address] Dr. Deidre Tijerina METAMYELOCYTE # Normal [facility] Comment on above: Performed By: #### P OCGLUC #### [facility] [address] [place] [address] Dr. Deidre Tijerina METAMYELOCYTE % Normal [facility] Comment on above: Performed By: #### P OCGLUC #### [facility] [address] [place] [address] Dr. Deidre Tijerina MONOM# 0.57 103/ul Normal 0.30-0.80 [facility] Comment on above: Performed By: #### P OCGLUC #### [facility] [address] [place] [address] Dr. Deidre Tijerina MONOM% 4.0 % Normal 1.7-12.0 [facility] Comment on above: Performed By: #### P OCGLUC #### [facility] [address] [address] [address] Deidre Tijerina MPV 9.1 fL Critically low 9.5-13.5 [facility] Comment on above: Performed By: #### P OCGLUC #### [facility] [address] [address] [address] Deidre Tijerina MYELOCYTE # Normal [facility] Comment on above: Performed By: #### P OCGLUC #### [facility] [address] [address] [address] Deidre Tijerina MYELOCYTE % Normal [facility] Comment on above: Performed By: #### P OCGLUC #### [facility] [address] [address] [address] Deidre Tijerina NRBC Normal [facility] Comment on above: Performed By: #### P OCGLUC #### [facility] [address] [place] [address] Dr. Deidre Tijerina PLT 188 103/ul Normal 150-450 [facility] Comment on above: Performed By: #### P OCGLUC #### [facility] [address] [address] [address] Deidre Tijerina RBC 3.18 106/ul Critically low 4.70-6.10 [facility] Comment on above: Performed By: #### P OCGLUC #### [facility] [address] [place] [address] Dr. Deidre Tijerina RDW 14.0 % Normal 11.0-15.0 [facility] Comment on above: Performed By: #### P OCGLUC #### [facility] [address] [place] [address] Dr. Deidre Tijerina SEG # 12.92 103/ul Critically high 1.40-6.50 [facility] Comment on above: Performed By: #### P OCGLUC #### [facility] [address] [place] [address] Dr. Deidre Tijerina SEG % 91.0 % Critically high 43.0-75.0 [facility] Comment on above: Performed By: #### P OCGLUC #### [facility] [address] [place] [address] Dr. Deidre Tijerina WBC 14.2 103/ul Critically high 4.0-11.0 [facility] Comment on above: Performed By: #### P OCGLUC #### [facility] [address] [address] [address] Deidre Tijerina POINT OF CARE GLUCOSEon 07-25 Glucose [Mass/Vol] 305 mg/dL Critically high -106 [facility] Comment on above: Performed By: #### P OCGLUC #### [facility] [address] [address] [address] Dedire Tijerina Glucose [Mass/Vol] 181 mg/dL Critically high -106 [facility] Comment on above: Performed By: #### C BC #### [facility] [address] [place] [address] Dr. Deidre Tijerina Glucose [Mass/Vol] 342 mg/dL Critically high [facility]106 [facility] Comment on above: Performed By: #### P OCGLUC #### [facility] [address] [address] [address] Deidre Tijerina Glucose [Mass/Vol] 192 mg/dL Critically high [facility] Comment on above: Performed By: #### P OCGLUC #### [facility] [address] [address] [address] Deidre Tijerina PROF CHEM 8 (BAS METB)on Anion gap [Moles/Vol] 10.3 mmol/L Normal [facility] Comment on above: Performed By: #### B MP, BNP #### [facility] [address] [place] [address] Dr. Deidre Tijerina Calcium [Mass/Vol] 7.9 mg/dL Critically low 8.5-10.1 [facility] Comment on above: Performed By: #### B MP, BNP #### [facility] [address] [address] [address] Deidre Tijerina Chloride [Moles/Vol] 100 mmol/L Normal 98-107 [facility] Comment on above: Performed By: #### B MP, BNP #### [facility] [address] [address] [address] Deidre Tijerina CO2 [Moles/Vol] 26.6 mmol/L Normal 21.0-32.0 [facility] Comment on above: Performed By: #### B MP, BNP #### [facility] [address] [address] [address] Deidre Tijerina Creatinine [Mass/Vol] 1.29 mg/dL Normal 0.70-1.30 [facility] Comment on above: Performed By: #### B MP, BNP #### [facility] [address] [address] [address] Deidre Tijerina EGFR-AF PALAUAN >60 Normal >=60 [facility] Comment on above: Performed By: #### B MP, BNP #### [facility] [address] [address] [address] Deidre Tijerina EGFR-NON AF PALAUAN 54 mL/min/1.73m2 Critically low >=60 [facility] Comment on above: Performed By: #### B MP, BNP #### [facility] [address] [address] [address] Deider Tijerina Glucose [Mass/Vol] 190 mg/dL Critically high 74-106 [facility] Comment on above: Performed By: #### B MP, BNP #### [facility] [address] [address] [address] Deidre Tijerina Potassium [Moles/Vol] 3.9 mmol/L Normal 3.5-5.1 [facility] Comment on above: Performed By: #### B MP, BNP #### [facility] [address] [address] [address] Deidre Tijerina Sodium [Moles/Vol] 133 mmol/L Critically low 136-145 [facility] Comment on above: Performed By: #### B MP, BNP #### [facility] [address] [address] [address] Deidre Tijerina Urea nitrogen [Mass/Vol] 35.0 mg/dL Critically high 7.0-18 .0 [facility] Comment on above: Performed By: #### B MP, BNP #### [facility] [address] [address] [address] Deidre Tijerina Urea nitrogen/Creatinine [Mass ratio] 27.1 mg/mg Normal [facility] Comment on above: Performed By: #### B MP, BNP #### [facility] [address] [address] [address] Deidre Tijerina BILIRUBIN CONJUGATED (DIRECT )on 08-18-2022 BILI, CONJUGATED 0.4 mg/dL Critically high 0.0-0.2 [facility] Comment on above: Performed By: #### P OCGLUC #### [facility] [address] [address] [address] Deidre Tijerina BLOOD GASES BTYon 08-18-2022 02 MODE BIPAP [facility] Comment on above: Performed By: #### P OCGLUC #### [facility] [address] [place] [address] Dr. Deidre Tijerina ALLENS TEST Positive [facility] Comment on above: Performed By: #### P OCGLUC #### [facility] [address] [address] [address] Deidre Tijeirna Base excess Calc (Bld) [Moles/Vol] 1.0 mmol/L Normal -2.0-2.0 [facility] Comment on above: Performed By: #### P OCGLUC #### [facility] [address] [place] [address] Dr. Deidre Tijerina BIPAP PRESSURE 16/8 Normal [facility] Comment on above: Performed By: #### P OCGLUC #### [facility] [address] [address] [address] Deidre Tijerina CPAP Normal [facility] Comment on above: Performed By: #### P OCGLUC #### [facility] [address] [address] [address] Deidre Tijerina FIO2 35.00 % Normal [facility] Comment on above: Performed By: #### P OCGLUC #### [facility] [address] [address] [address] Deidre Tijerina HCO3 (Bld) [Moles/Vol] 25.0 mmol/L Normal 22.0-26.0 [facility] Comment on above: Performed By: #### P OCGLUC #### [facility] [address] [place] [address] Dr. Deidre Tijerina LPM [facility] Comment on above: Performed By: #### P OCGLUC #### [facility] [address] [place] [address] Dr. Deidre Tijerina MINUTE VOLUME 21 L Normal [facility] Comment on above: Performed By: #### P OCGLUC #### [facility] [address] [place] [address] Dr. Deidre Tijerina Oxygen (Bld) [Partial pressure] 83.4 mm[Hg] Normal 80.0-100.0 [facility] Comment on above: Performed By: #### P OCGLUC #### [facility] [address] [place] [address] Dr. Deidre Tijerina Oxygen saturation in Blood 97.5 % Normal 95.0-100.0 [facility] Comment on above: Performed By: #### P OCGLUC #### [facility] [address] [place] [address] Dr. Deidre Tijerina PCO2 36.2 mmHg Normal 35.0-45.0 [facility] Comment on above: Performed By: #### P OCGLUC #### [facility] [address] [place] [address] Dr. Deidre Tijerina PEEP 8 [facility] Comment on above: Performed By: #### P OCGLUC #### [facility] [address] [place] [address] Dr. Deidre Tijerina pH (Bld) 7.440 [pH] Normal 7.350-7.450 [facility] Comment on above: Performed By: #### P OCGLUC #### [facility] [address] [place] [address] Dr. Deidre Tijerina PIP 17 Normal [facility] Comment on above: Performed By: #### P OCGLUC #### [facility] [address] [place] [address] Dr. Deidre Tijerina PS 8 Normal [facility] Comment on above: Performed By: #### P OCGLUC #### [facility] [address] [address] [address] Deidre Tijerina PUNCTURE SITE RR Normal [facility] Comment on above: Performed By: #### P OCGLUC #### [facility] [address] [place] [address] Dr. Deidre Tijerina RATE 14 bpm Normal [facility] Comment on above: Performed By: #### P OCGLUC #### [facility] [address] [address] [address] Deidre Tijerina VENT MODE [facility] Comment on above: Performed By: #### P OCGLUC #### [facility] [address] [place] [address] Dr. Deidre Tijerina VT 945 ML [facility] Comment on above: Performed By: #### P OCGLUC #### [facility] [address] [place] [address] Dr. Deidre Tijerina BNPon 08-18-2022 Natriuretic peptide B (Bld) [Mass/Vol] 2561.0 pg/mL Critically high <=1,800.0 [facility] Comment on above: Performed By: #### P OCGLUC #### [facility] [address] [place] [address] Dr. Deidre Tijerina CBC W MANUAL DIFFon 08-18-20 22 ANISOCYTOSIS 1+ Normal [facility] Comment on above: Performed By: #### C BCMAN #### [facility] [address] [place] [address] Dr. Deidre Tijerina ATYPICAL LYMPH # Normal [facility] Comment on above: Performed By: #### C BCMAN #### [facility] [address] [place] [address] Dr. Deidre Tijerina ATYPICAL LYMPH % Normal [facility] Comment on above: Performed By: #### C BCMAN #### [facility] [address] [place] [address] Dr. Deidre Tijerina BAND # 1.2 103/ul Critically high 0.0-0.3 [facility] Comment on above: Performed By: #### C BCMAN #### [facility] [address] [address] [address] Deidre Tijerina BAND % 7 % Critically high 0-5 [facility] Comment on above: Performed By: #### C BCMAN #### [facility] [address] [address] [address] Deidre Tijerina BASOM # 0.00 103/ul Normal 0.00-0.10 [facility] Comment on above: Performed By: #### C BCMAN #### [facility] [address] [address] [address] Deidre Tijerina BASOM % 0.0 % Critically low 0.2-2.0 [facility] Comment on above: Performed By: #### C BCMAN #### [facility] [address] [place] [address] Dr. Deidre Tijerina BLAST # Normal [facility] Comment on above: Performed By: #### C BCNICOLASA #### [facility] [address] [place] [address] Dr. Deidre Tijerina BLAST % Normal [facility] Comment on above: Performed By: #### C BCNICOLASA #### [facility] [address] [place] [address] Dr. Deidre Tijerina CORRECTED WBC Normal 4.0-11.0 [facility] Comment on above: Performed By: #### C BCNICOLASA #### [facility] [address] [place] [address] Dr. Deidre Tijerina EOS # 0.17 103/ul Normal 0.00-0.70 [facility] Comment on above: Performed By: #### C BCMAN #### [facility] [address] [address] [address] Deidre Tijerina EOS% 1.0 % Normal 0.9-7.0 [facility] Comment on above: Performed By: #### C BCMAN #### [facility] [address] [place] [address] Dr. Deidre Tijerina HCT 34.8 % Critically low 42.0-54.0 [facility] Comment on above: Performed By: #### C BCNICOLASA #### [facility] [address] [address] [address] Deidre Tijerina HGB 11.5 g/dl Critically low 14.0-18.0 [facility] Comment on above: Performed By: #### C BCNICOLASA #### [facility] [address] [address] [address] Deidre Tijerina LYMPHM # 1.20 103/ul Normal 1.20-3.80 [facility] Comment on above: Performed By: #### C BCNICOLASA #### [facility] [address] [address] [address] Deidre Tijerina LYMPHM% 7.0 % Critically low 20.5-60.0 [facility] Comment on above: Performed By: #### C ADALGISA #### [facility] [address] [address] [address] Deidre Tijerina MCH 31.5 pg Normal 25.9-34.0 [facility] Comment on above: Performed By: #### C ADALGISA #### [facility] [address] [address] [address] Deidre Tijerina MCHC 33.0 g/dl Normal 29.9-35.2 [facility] Comment on above: Performed By: #### C ADALGISA #### [facility] [address] [address] [address] Deidre Tijerina MCV 95.3 fL Critically high 80.0-94.0 [facility] Comment on above: Performed By: #### C BCNICOLASA #### [facility] [address] [address] [address] Deidre Tijerina METAMYELOCYTE # Normal [facility] Comment on above: Performed By: #### C BCNICOLASA #### [facility] [address] [address] [address] Deidre Tijerina METAMYELOCYTE % Normal [facility] Comment on above: Performed By: #### C ADALGISA #### [facility] [address] [address] [address] Deidre Tijerina MONOM# 1.03 103/ul Critically high 0.30-0.80 [facility] Comment on above: Performed By: #### C ADALGISA #### [facility] [address] [place] [address] Dr. Deidre Tijerina MONOM% 6.0 % Normal 1.7-12.0 [facility] Comment on above: Performed By: #### C ADALGISA #### [facility] [address] [place] [address] Dr. Deidre Tijerina MPV 8.7 fL Critically low 9.5-13.5 [facility] Comment on above: Performed By: #### C ADALGISA #### [facility] [address] [place] [address] Dr. Deidre Tijerina MYELOCYTE # Normal [facility] Comment on above: Performed By: #### C ADALGISA #### [facility] [address] [place] [address] Dr. Deidre Tijerina MYELOCYTE % Normal [facility] Comment on above: Performed By: #### C ADALGISA #### [facility] [address] [place] [address] Dr. Deidre Tijerina NRBC Normal [facility] Comment on above: Performed By: #### C ADALGISA #### [facility] [address] [place] [address] Dr. Deidre Tijerina PLT 212 103/ul Normal 150-450 [facility] Comment on above: Performed By: #### C ADALGISA #### [facility] [address] [place] [address] Dr. Deidre Tijerina RBC 3.65 106/ul Critically low 4.70-6.10 [facility] Comment on above: Performed By: #### C ADALGISA #### [facility] [address] [place] [address] Dr. Deidre Tijerina RDW 14.0 % Normal 11.0-15.0 [facility] Comment on above: Performed By: #### C ADALGISA #### [facility] [address] [place] [address] Dr. Deidre Tijerina SEG # 13.59 103/ul Critically high 1.40-6.50 [facility] Comment on above: Performed By: #### C BCMAN #### [facility] [address] [address] [address] Deidre Tijerina SEG % 79.0 % Critically high 43.0-75.0 [facility] Comment on above: Performed By: #### C BCMAN #### [facility] [id number] Deidre Tijerina WBC 17.2 103/ul Critically high 4.0-11.0 [facility] Comment on above: Performed By: #### C BCMAN #### [facility] [address] [address] CHEST WO CONon [...] NOREEN KELLY Date: 2022-08-18 12:12 Normal [facility] CULTURE BLOODon 08-18-2022 Microscopic examination of blood, culture Culture Observations: NO GROWTH AT 5 DAYS. Normal [facility] Comment on above: Performed By: #### C BC #### [facility] [address] [address] [address] Deidre Tijerina Microscopic examination of blood, culture Culture Observations: NO GROWTH AT 5 DAYS. Normal [facility] Comment on above: Performed By: #### C BC #### [facility] [address] [place], [place] [id number] Dr. Deidre Tijerina Covid-19 PCR ([facility])on 07-25 SARS-CoV-2 (COVID-19) RNA ISA+probe Ql (Unsp spec) Not detected Normal NOT DETECTED [facility] Comment on above: Result Comment: [...] for this test is supported by the [place] of Health and Human Service's declaration that [...] used). Performed By: #### P OCGLUC #### [facility] [address] [place] [id number] [address] Deidre Tijerina ECHO LIMITED STUDYon 022 ECHO LIMITED STUDY Patient: ARIANNE MCQUEEN Exam Date: 08/18/2022 : 1945 Gender:M Ordering : SHAIKH Zay CARRERA . Admission #: [id number] Family : Order #: [id number] CLICK HERE TO VIEW EXAM ECHOCARDIOGRAM REPORT [...] M.D. on 08/26/2022 at 09:00 Normal [facility] INFLUENZA A AND B AGon 08-18 INFLUANEGH SEE BELOW Normal [facility] Comment on above: Result Comment: Nega tive for Flu A protein angiten. Infection due to Flu A cannot be ruled out. Flu A angiten in the sample may be below the detection limit of the test. Performed By: #### P OCGLUC #### [facility] [address] [place] [address] Dr. Deidre Tijerina [facility] SEE BELOW Normal [facility] Comment on above: Result Comment: Nega tive for Flu B protein antigen. Infection due to Flu B cannot be ruled out. Flu B antigen in the sample may be below the detection limit of the test. Performed By: #### P OCGLUC #### [facility] [address] [place] [address] Dr. Deidre Tijerina INFLUENZA A AG Negative Normal NEGATIVE SEE COMMENT [facility] Comment on above: Performed By: #### P OCGLUC #### [facility] [address] [address] [address] Deidre Tijerina INFLUENZA B AG Negative Normal NEGATIVE SEE COMMENT [facility] Comment on above: Performed By: #### P OCGLUC #### [facility] [address] [place] [address] Dr. Deidre Tijerina INTERNAL CONTROLS Within Normal Limits Normal Wi thin Normal Limits [facility] Comment on above: Performed By: #### P OCGLUC #### [facility] [address] [address] [address] Deidre Tijerina LACTATE/LACTIC ACIDon 2021 Lactate [Moles/Vol] 2.0 mmol/L Critically high 0.4-1.9 [facility] Comment on above: Performed By: #### P OCGLUC #### [facility] [address] [place] [address] Dr. Deidre Tijerina Lactate [Moles/Vol] 2.0 mmol/L Critically high 0.4-1.9 [facility] Comment on above: Performed By: #### P OCGLUC #### [facility] [address] [place] [address] Dr. Deidre Tijerina POINT OF CARE GLUCOSEon 07-25 Glucose [Mass/Vol] 228 mg/dL Critically high 74-106 [facility] Comment on above: Performed By: #### P OCGLUC #### [facility] [address] [place] [address] Dr. Deidre Tijerina Glucose [Mass/Vol] 119 mg/dL Critically high 74-106 [facility] Comment on above: Performed By: #### P OCGLUC #### [facility] [address] [address] [address] Deidre Tijerina Glucose [Mass/Vol] 161 mg/dL Critically high 74-106 [facility] Comment on above: Performed By: #### C BC #### [facility] [address] [address] [address] Deidre Tijerina PROF 14(COMP METB)on 022 Albumin [Mass/Vol] 2.9 g/dL Critically low 3.4-5.0 [facility] Comment on above: Performed By: #### P OCGLUC #### [facility] [address] [address] [address] Deidre Tijerina Albumin/Globulin [Mass ratio] 0.6 {ratio} Normal [facility] Comment on above: Performed By: #### P OCGLUC #### [facility] [address] [address] [address] Deidre Tijerina ALP [Catalytic activity/Vol] 71 U/L Normal 46-116 [facility] Comment on above: Performed By: #### P OCGLUC #### [facility] [address] [address] [address] Deidre Tijerina ALT [Catalytic activity/Vol] 13 U/L Critically low 16-63 [facility] Comment on above: Performed By: #### P OCGLUC #### [facility] [address] [address] [address] Deidre Tijerina Anion gap [Moles/Vol] 12.3 mmol/L Normal [facility] Comment on above: Performed By: #### P OCGLUC #### [facility] [address] [address] [address] Deidre Tijerina AST [Catalytic activity/Vol] 14 U/L Critically low 15-37 [facility] Comment on above: Performed By: #### P OCGLUC #### [facility] [address] [address] [address] Deidre Tijerina Bilirubin [Mass/Vol] 2.6 mg/dL Critically high 0.2-1.0 [facility] Comment on above: Performed By: #### P OCGLUC #### [facility] [address] [address] [address] Deidre Tijerina Calcium [Mass/Vol] 8.5 mg/dL Normal 8.5-10.1 [facility] Comment on above: Performed By: #### P OCGLUC #### [facility] [address] [address] [address] Deidre Tijerina Chloride [Moles/Vol] 98 mmol/L Normal 98-107 [facility] Comment on above: Performed By: #### P OCGLUC #### [facility] [address] [address] [address] Deidre Tijerina CO2 [Moles/Vol] 26.0 mmol/L Normal 21.0-32.0 [facility] Comment on above: Performed By: #### P OCGLUC #### [facility] [address] [address] [address] Deidre Tijerina Creatinine [Mass/Vol] 1.43 mg/dL Critically high 0.70-1.30 [facility] Comment on above: Performed By: #### P OCGLUC #### [facility] [address] [address] [address] Deidre Tijerina EGFR-AF PALAUAN 58 mL/min/1.73m2 Critically low >=60 [facility] Comment on above: Performed By: #### P OCGLUC #### [facility] [address] [address] [address] Deidre Tijerina EGFR-NON AF PALAUAN 48 mL/min/1.73m2 Critically low >=60 [facility] Comment on above: Performed By: #### P OCGLUC #### [facility] [address] [address] [address] Deidre Tijerina Globulin (S) [Mass/Vol] 5.0 g/dL Normal [facility] Comment on above: Performed By: #### P OCGLUC #### [facility] [address] [address] [address] Deidre Tijerina Glucose [Mass/Vol] 165 mg/dL Critically high 74-106 [facility] Comment on above: Performed By: #### P OCGLUC #### [facility] [address] [address] [address] Deidre Tijerina Potassium [Moles/Vol] 4.3 mmol/L Normal 3.5-5.1 [facility] Comment on above: Performed By: #### P OCGLUC #### [facility] [address] [address] [address] Deidre Tijerina Protein [Mass/Vol] 7.9 g/dL Normal 6.4-8.2 [facility] Comment on above: Performed By: #### P OCGLUC #### [facility] [address] [address] [address] Deidre Tijerina Sodium [Moles/Vol] 132 mmol/L Critically low 136-145 [facility] Comment on above: Performed By: #### P OCGLUC #### [facility] [address] [address] [address] Deidre Tijerina Urea nitrogen [Mass/Vol] 25.0 mg/dL Critically high 7.0-18 .0 [facility] Comment on above: Performed By: #### P OCGLUC #### [facility] [address] [address] [address] Deidre Tijerina Urea nitrogen/Creatinine [Mass ratio] 17.5 mg/mg Normal [facility] Comment on above: Performed By: #### P OCGLUC #### [facility] [address] [address] [address] Deidre Tijerina TROPONIN, HIGH SENSITIVITYon 08-18-2022 HSTROP 8.4 pg/mL Normal 4.0-76.1 [facility] Comment on above: Result Comment: CUT- OFF POINTS HAVE BEEN ESTABLISHED BASED ON THE FOURTH UNIVERSAL DEFINITIONS OF MYOCARDIAL INFARCTION. THE UPPER REFERENCE LIMIT (URL) OF TROPONIN, DEFINED THE 99TH PERCENTILE OF cTnI DISTRIBUTION IN A REFERENCE POPULATION, HAS BEEN CONFIRMED THE DECISION THRESHOLD FOR [place] DIAGNOSIS. Performed By: #### P OCGLUC #### [facility] [address] [address] [address] Deidre Tijerina XR CHEST 1 Von [...] left costophrenic angle is excluded from the [id number]. 3. No overt edema, failure, pneumothorax, or sizable effusion noted within limits of study. 4. Old healed nondisplaced anterior right fifth rib fracture deformity faintly suggested. Electronically authenticated by: ESTUARDO ABEBE Date: 2022-08-18 09:37 Normal [facility] STRESS/REST MULTIon 08-04 MT STRESS/REST MULTI Patient: ARIANNE MCQUEEN Exam Date: 08/04/2022 : 1945 Gender:M Ordering : DR CATINA HEARN M.D. Admission #: [id number] Family : Order #: [id number] CLICK HERE TO VIEW EXAM RADIOLOGY REPORT PROCEDURE: RADIONUCLIDE IMAGING STRESS/REST MULTI COMPARISON: [place] STRESS/REST MULTI, 12/14/2020. INDICATIONS: Dyspnea on exertion [...] Banks MD on 08/07/2022 at 08:29 Normal [facility] BNPon 07-14-2022 Natriuretic peptide B (Bld) [Mass/Vol] 164.0 pg/mL Normal <=1,800.0 [facility] Comment on above: Performed By: #### B VOCATIONAL COUNSELOR, BMP #### [facility] [address] [place] [address] Dr. Deidre Tijerina PROF CHEM 8 (BAS METB)on Anion gap [Moles/Vol] 9.2 mmol/L Normal [facility] Comment on above: Performed By: #### B VOCATIONAL COUNSELOR, BMP #### [facility] [address] [place] [address] Dr. Deidre Tijerina Calcium [Mass/Vol] 8.4 mg/dL Critically low 8.5-10.1 [facility] Comment on above: Performed By: #### B VOCATIONAL COUNSELOR, BMP #### [facility] [address] [place] [address] Dr. Deidre Tijerina Chloride [Moles/Vol] 106 mmol/L Normal 98-107 [facility] Comment on above: Performed By: #### B VOCATIONAL COUNSELOR, BMP #### [facility] [address] [place] [address] Dr. Deidre Tijerina CO2 [Moles/Vol] 27.0 mmol/L Normal 21.0-32.0 [facility] Comment on above: Performed By: #### B VOCATIONAL COUNSELOR, BMP #### [facility] [address] [place] [address] Dr. Deidre Tijerina Creatinine [Mass/Vol] 1.38 mg/dL Critically high 0.70-1.30 [facility] Comment on above: Performed By: #### B VOCATIONAL COUNSELOR, BMP #### [facility] [address] [place] [address] Dr. Deidre Tijerina EGFR-AF PALAUAN =60 Normal >=60 [facility] Comment on above: Performed By: #### B VOCATIONAL COUNSELOR, BMP #### [facility] [address] [place] [address] Dr. Deidre Tijerina EGFR-NON AF PALAUAN 50 mL/min/1.73m2 Critically low >=60 [facility] Comment on above: Performed By: #### B VOCATIONAL COUNSELOR, BMP #### [facility] [address] [address] [address] Deidre Tijerina Glucose [Mass/Vol] 95 mg/dL Normal 74-106 [facility] Comment on above: Performed By: #### B VOCATIONAL COUNSELOR, BMP #### [facility] [address] [place] [address] Dr. Deidre Tijerina Potassium [Moles/Vol] 5.2 mmol/L Critically high 3.5-5.1 [facility] Comment on above: Performed By: #### B VOCATIONAL COUNSELOR, BMP #### [facility] [address] [address] [address] Deidre Tijerina Sodium [Moles/Vol] 137 mmol/L Normal 136-145 [facility] Comment on above: Performed By: #### B VOCATIONAL COUNSELOR, BMP #### [facility] [address] [place] [address] Dr. Deidre Tijerina Urea nitrogen [Mass/Vol] 25.0 mg/dL Critically high 7.0-18 .0 [facility] Comment on above: Performed By: #### B VOCATIONAL COUNSELOR, BMP #### [facility] [address] [place] [address] Dr. Deidre Tijerina Urea nitrogen/Creatinine [Mass ratio] 18.1 mg/mg Normal [facility] Comment on above: Performed By: #### B VOCATIONAL COUNSELOR, BMP #### [facility] [address] [place] [address] Dr. Deidre Tijerina ECHOCARDIO M/2D COMPLETEon 0 05-08-2022 ECHOCARDIO M/2D COMPLETE Patient: ARIANNE MCQUEEN Exam Date: 05/08/2022 : 1945 Gender:M Ordering : DR CATINA HEARN M.D. Admission #: [id number] Family : MAL BoldenFrancine BARNES D.O. Order #: [id number] CLICK HERE TO VIEW EXAM ECHOCARDIOGRAM REPORT [...] Hearn M.D. on 05/09/2022 at 19:48 Normal [facility] XR LSPINE MIN 4 VIEWSon 04-24 XR [...] by: NOREEN KELLY Date: 2022-05-08 10:47 Normal [facility] PROF CHEM 8 (BAS METB)on Anion gap [Moles/Vol] 6.8 mmol/L Normal [facility] Comment on above: Performed By: #### P OCGLUC #### [facility] [address] [address] [address] Deidre Tijerina Calcium [Mass/Vol] 8.8 mg/dL Normal 8.5-10.1 [facility] Comment on above: Performed By: #### P OCGLUC #### [facility] [address] [address] [address] Deidre Tijerina Chloride [Moles/Vol] 102 mmol/L Normal 98-107 [facility] Comment on above: Performed By: #### P OCGLUC #### [facility] [address] [address] [address] Deidre Tijerina CO2 [Moles/Vol] 28.1 mmol/L Normal 21.0-32.0 [facility] Comment on above: Performed By: #### P OCGLUC #### [facility] [address] [address] [address] Deidre Tijerina Creatinine [Mass/Vol] 1.84 mg/dL Critically high 0.70-1.30 [facility] Comment on above: Performed By: #### P OCGLUC #### [facility] [address] [address] [address] Deidre Tijerina EGFR-AF PALAUAN 43 mL/min/1.73m2 Critically low >=60 [facility] Comment on above: Performed By: #### P OCGLUC #### [facility] [address] [address] [address] Deidre Tijerina EGFR-NON AF PALAUAN 36 mL/min/1.73m2 Critically low >=60 [facility] Comment on above: Performed By: #### P OCGLUC #### [facility] [address] [address] [address] Deidre Tijerina Glucose [Mass/Vol] 112 mg/dL Critically high 74-106 [facility] Comment on above: Performed By: #### P OCGLUC #### [facility] [address] [address] [address] Deidre Tijerina Potassium [Moles/Vol] 4.9 mmol/L Normal 3.5-5.1 [facility] Comment on above: Performed By: #### P OCGLUC #### [facility] [address] [address] [address] Deidre Tijerina Sodium [Moles/Vol] 132 mmol/L Critically low 136-145 [facility] Comment on above: Performed By: #### P OCGLUC #### [facility] [address] [address] [address] Deidre Tijerina Urea nitrogen [Mass/Vol] 40.0 mg/dL Critically high 7.0-18 .0 [facility] Comment on above: Performed By: #### P OCGLUC #### [facility] [address] [address] [address] Deidre Tijerina Urea nitrogen/Creatinine [Mass ratio] 21.7 mg/mg Normal [facility] Comment on above: Performed By: #### P OCGLUC #### [facility] [address] [address] [address] Deidre Tijerina PROF CHEM 8 (BAS METB)on Anion gap [Moles/Vol] 8.9 mmol/L Normal [facility] Comment on above: Performed By: #### B MP #### [facility] [address] [address] [address] Deidre Tijerina Calcium [Mass/Vol] 8.4 mg/dL Critically low 8.5-10.1 [facility] Comment on above: Performed By: #### B MP #### [facility] [address] [address] [address] Deidre Tijerina Chloride [Moles/Vol] 102 mmol/L Normal 98-107 [facility] Comment on above: Performed By: #### B MP #### [facility] [address] [address] [address] Deidre Tijerina CO2 [Moles/Vol] 25.9 mmol/L Normal 21.0-32.0 [facility] Comment on above: Performed By: #### B MP #### [facility] [address] [address] [address] Deidre Tijerina Creatinine [Mass/Vol] 1.20 mg/dL Normal 0.70-1.30 [facility] Comment on above: Performed By: #### B MP #### [facility] [address] [address] [address] Deidre Tijerina EGFR-AF PALAUAN >60 Normal >=60 [facility] Comment on above: Performed By: #### B MP #### [facility] [address] [address] [address] Deidre Tijerina EGFR-NON AF PALAUAN 59 mL/min/1.73m2 Critically low >=60 [facility] Comment on above: Performed By: #### B MP #### [facility] [address] [address] [address] Deidre Tijerina Glucose [Mass/Vol] 117 mg/dL Critically high 74-106 [facility] Comment on above: Performed By: #### B MP #### [facility] [address] [address] [address] Deidre Tijerina Potassium [Moles/Vol] 4.8 mmol/L Normal 3.5-5.1 [facility] Comment on above: Performed By: #### B MP #### [facility] [address] [address] [address] Deidre Tijerina Sodium [Moles/Vol] 132 mmol/L Critically low 136-145 [facility] Comment on above: Performed By: #### B MP #### [facility] [address] [address] [address] Deidre Tijerina Urea nitrogen [Mass/Vol] 25.0 mg/dL Critically high 7.0-18 .0 [facility] Comment on above: Performed By: #### B MP #### [facility] [address] [place], [place] [address] Dr. Deidre Tijerina Urea nitrogen/Creatinine [Mass ratio] 20.8 mg/mg Normal [facility] Comment on above: Performed By: #### B MP #### [facility] [address] [place], [place] [address] Dr. Deidre Tijerina US CHESTon 08-05-2021 US CHEST Normal [facility] Comment on above: Order Comment: serom a in the chest needs a drain placed BASIC METABOLIC PANELon 10- Calcium [Mass/Vol] 8.4 mg/dL Low 8.6-10.3 [facility] Comment on above: Order Comment: this is not a nurse draw. lab draw pleaseNo: Do not add to previous draw Performed By: #### 0 0071 ####[facility] [facility] [place] [address], [facility] Chloride [Moles/Vol] 102 mmol/L Normal 98-107 [facility] Comment on above: Order Comment: this is not a nurse draw. lab draw pleaseNo: Do not add to previous draw Performed By: #### 0 0071 ####[facility] [facility] [place] [address], [facility] CO2 [Moles/Vol] 25 mmol/L Normal 21-31 [facility] Comment on above: Order Comment: this is not a nurse draw. lab draw pleaseNo: Do not add to previous draw Performed By: #### 0 0071 ####[facility] [place] [address], [facility] Creatinine [Mass/Vol] 2.56 mg/dL High 0.70-1.30 [facility] Comment on above: Order Comment: this is not a nurse draw. lab draw pleaseNo: Do not add to previous draw Performed By: #### 0 0071 ####[facility] [facility] [place] [address], [facility] eGFR- 30 ml/min/1.73sq m Abnormal >60 [facility] Comment on above: Order Comment: this is not a nurse draw. lab draw pleaseNo: Do not add to previous draw Result Comment: Calc ulation may not be valid for patients over 70 years Performed By: #### 0 0071 ####[facility] [place] [address], [facility] eGFR- non- 24 ml/min/1.73sq m Abnormal >60 [facility] Comment on above: Order Comment: this is not a nurse draw. lab draw pleaseNo: Do not add to previous draw Result Comment: Calc ulation may not be valid for patients over 70 years Performed By: #### 0 0071 ####[facility] [place] [address], [place] Glucose [Mass/Vol] 182 mg/dL High 70-100 [facility] Comment on above: Order Comment: this is not a nurse draw. lab draw pleaseNo: Do not add to previous draw Performed By: #### 0 0071 ####[facility] [place] [address], [place] Potassium [Moles/Vol] 4.5 mmol/L Normal 3.5-5.1 [facility] Comment on above: Order Comment: this is not a nurse draw. lab draw pleaseNo: Do not add to previous draw Performed By: #### 0 0071 ####[facility] [place] [address], [place] Sodium [Moles/Vol] 133 mmol/L Low 136-145 [facility] Comment on above: Order Comment: this is not a nurse draw. lab draw pleaseNo: Do not add to previous draw Performed By: #### 0 0071 ####[facility] [place] [address], [place] Urea nitrogen [Mass/Vol] 28 mg/dL High 7-25 [facility] Comment on above: Order Comment: this is not a nurse draw. lab draw pleaseNo: Do not add to previous draw Performed By: #### 0 0071 ####[facility] [facility].[address] POC GLUCOSE LABon 06-02-2021 Glucose [Mass/Vol] 246 mg/dL High 70-100 [facility] Comment on above: Performed By: #### 8 [id number] ####[facility] [facility].[address] Glucose [Mass/Vol] 109 mg/dL High 70-100 [facility] Comment on above: Performed By: #### 8 5499 ####[address] [address] [facility].[address] POC SARS COV2 ANTIGEN NEGATI VEon 06-02-2021 POC SARS COV2 ANTIGEN NEG Negative Normal NEGATIVE [facility] Comment on above: Result Comment: [...] of clinicalsigns and symptoms consistent with COVID-19.The [employer] COVID-19 Ag Card is a lateral flow immunoassay intended forthe qualitative detection of nucleocapsid protein antigen [id number] in direct nasal swabs from individuals within [...] Certificate ofAccreditation. Performed By: #### 3 1977 ####[facility] [facility] [place] [address], [facility] POC SARS COV2 ANTIGEN NEG Negative Normal NEGATIVE [facility] Comment on above: Result Comment: [...] of clinicalsigns and symptoms consistent with COVID-19.The [employer] COVID-19 Ag Card is a lateral flow immunoassay intended forthe qualitative detection of nucleocapsid protein antigen [id number] in direct nasal swabs from individuals within [...] Certificate ofAccreditation. Performed By: #### 3 1977 ####[facility] [facility] [place] [address], [facility] POC GLUCOSE LABon 06-01-2021 Glucose [Mass/Vol] 142 mg/dL High 70-100 [facility] Comment on above: Performed By: #### 8 [id number] ####[facility] [facility] [place] [address], [place] Glucose [Mass/Vol] 132 mg/dL High 70-100 [facility] Comment on above: Performed By: #### 8 5499 ####[facility] [facility] [place] [address], [place] Glucose [Mass/Vol] 167 mg/dL High 70-100 [facility] Comment on above: Performed By: #### 8 5499 ####[facility] Glucose [Mass/Vol] 113 mg/dL High 70-100 [facility] Comment on above: Performed By: #### 8 [id number] ####[facility] APTTon 05-31-2021 aPTT Coag (Bld) [Time] 29.3 s Normal 25.0-35.0 [facility] Comment on above: Result Comment: [...] THIS PURPOSE. Performed By: #### 5 7307, [id number] ####[facility] CBC W/DIFFon 05-31-2021 ABS IMM GRANS 0.1 10*3/uL Normal 0.0-0.2 [facility] Comment on above: Order Comment: No: D o not add to previous draw Performed By: #### 5 0103 ####[facility] ABS NEUTROPHILS 4.9 10*3/uL Normal 1.6-7.6 [facility] Comment on above: Order Comment: No: D o not add to previous draw Performed By: #### 5 0103 ####[facility] Basophils (Bld) [#/Vol] 0.1 10*3/uL Normal 0.0-0.2 [facility] Comment on above: Order Comment: No: D o not add to previous draw Performed By: #### 5 0103 ####[facility] [place] [address], [facility] Basophils/100 WBC (Bld) 0.6 % Normal 0.0-1.0 T valentin [facility] Comment on above: Order Comment: No: D o not add to previous draw Performed By: #### 5 0103 ####[facility] [place] [address], [facility] Eosinophils (Bld) [#/Vol] 0.4 10*3/uL Normal 0.0-0.5 [facility] Comment on above: Order Comment: No: D o not add to previous draw Performed By: #### 5 0103 ####[facility] [facility] [place] [address], [facility] Eosinophils/100 WBC (Bld) 5.3 % Normal 0.0-6.0 [facility] Comment on above: Order Comment: No: D o not add to previous draw Performed By: #### 5 0103 ####[facility] [place] [address], [facility] Erythrocyte distribution width (RBC) [Ratio] 15.7 % High 11.5-15.0 [facility] Comment on above: Order Comment: No: D o not add to previous draw Performed By: #### 5 3 ####[facility] [facility] [place] [address], [facility] Hematocrit (Bld) [Volume fraction] 27.6 % Low 39.0-50.0 [facility] Comment on above: Order Comment: No: D o not add to previous draw Performed By: #### 5 0103 ####[facility] [facility] [place] [address], [facility] Hemoglobin (Bld) [Mass/Vol] 8.5 g/dL Low 13.0-17.0 [facility] Comment on above: Order Comment: No: D o not add to previous draw Performed By: #### 5 0103 ####[facility] IMMATURE GRANS 1.1 % High 0.0-1.0 [facility] Comment on above: Order Comment: No: D o not add to previous draw Performed By: #### 5 102 ####[facility] [place] [address], [facility] Lymphocytes (Bld) [#/Vol] 1.7 10*3/uL Normal 1.2-4.0 [facility] Comment on above: Order Comment: No: D o not add to previous draw Performed By: #### 5 102 ####[facility] Lymphocytes/100 WBC (Bld) 21.4 % Normal 20.0-45.0 [facility] Comment on above: Order Comment: No: D o not add to previous draw Performed By: #### 102 ####[facility] [place] [address], [facility] MCH (RBC) [Entitic mass] 29.2 pg Normal 27.0-33.0 [facility] Comment on above: Order Comment: No: D o not add to previous draw Performed By: #### 102 ####[facility] MCHC (RBC) [Mass/Vol] 30.8 g/dL Low 32.0-35.0 [facility] Comment on above: Order Comment: No: D o not add to previous draw Performed By: #### 5 3 ####[facility] [place] [address], [facility] MCV (RBC) [Entitic vol] 94.8 fL Normal 82.0-98.0 T valentin [facility] Comment on above: Order Comment: No: D o not add to previous draw Performed By: #### 5 0103 ####[facility] [place] [address], [facility] Monocytes (Bld) [#/Vol] 0.8 10*3/uL Normal 0.1-1.0 [facility] Comment on above: Order Comment: No: D o not add to previous draw Performed By: #### 5 0103 ####[facility] [place] [address], [facility] MONOS 9.7 % Normal 5.0-12.0 [facility] Comment on above: Order Comment: No: D o not add to previous draw Performed By: #### 5 3 ####[facility] [place] [address], [facility] Neutrophils/100 WBC (Bld) 61.9 % Normal 40.0-72.0 [facility] Comment on above: Order Comment: No: D o not add to previous draw Performed By: #### 5 3 ####[facility] [place] [address], [facility] Nucleated RBC/100 WBC (Bld) [Ratio] 0 % Normal 0-0 [facility] Comment on above: Order Comment: No: D o not add to previous draw Performed By: #### 5 102 ####[facility] [place] [address], [facility] PLAT CNT 351 10*3/uL Normal 150-400 [facility] Comment on above: Order Comment: No: D o not add to previous draw Performed By: #### 5 0103 ####[facility] [place] [address], [facility] RBC (Bld) [#/Vol] 2.91 10*6/uL Low 4.20-5.70 [facility] Comment on above: Order Comment: No: D o not add to previous draw Performed By: #### 5 3 ####[facility] [place] [address], [facility] WBC (Bld) [#/Vol] 7.96 10*3/uL Normal 4.00-10.60 [facility] Comment on above: Order Comment: No: D o not add to previous draw Performed By: #### 5 0103 ####[facility] [place] [address], [facility] COMP METABOLIC PANELon 05-31 Albumin [Mass/Vol] 2.9 g/dL Low 3.5-5.7 [facility] Comment on above: Order Comment: No: D o not add to previous drawNurse draw Performed By: #### 1 0, 83211 ####[facility] [facility] [place] [address], [facility] ALKALINE PHOSPH 70 IU/L Normal 34-104 [facility] Comment on above: Order Comment: No: D o not add to previous drawNurse draw Performed By: #### 1 0, 30569 ####[facility] [facility] ALT [Catalytic activity/Vol] 9 U/L Normal 7-52 [facility] Comment on above: Order Comment: No: D o not add to previous drawNurse draw Performed By: #### 1 0, [id number] ####[facility] [facility] AST [Catalytic activity/Vol] 11 U/L Low 13-39 [facility] Comment on above: Order Comment: No: D o not add to previous drawNurse draw Performed By: #### 1 0070, [id number] ####[facility] [place] [address], [facility] Bilirubin [Mass/Vol] 0.6 mg/dL Normal 0.3-1.0 [facility] Comment on above: Order Comment: No: D o not add to previous drawNurse draw Performed By: #### 1 0070, [id number] ####[facility] [place] [address], [facility] Calcium [Mass/Vol] 8.4 mg/dL Low 8.6-10.3 [facility] Comment on above: Order Comment: No: D o not add to previous drawNurse draw Performed By: #### 1 0, 97692 ####[facility] [place] [address], [place] Chloride [Moles/Vol] 102 mmol/L Normal 98-107 [facility] Comment on above: Order Comment: No: D o not add to previous drawNurse draw Performed By: #### 1 0, 06668 ####[facility] [place] [address], [facility] CO2 [Moles/Vol] 27 mmol/L Normal 21-31 [facility] Comment on above: Order Comment: No: D o not add to previous drawNurse draw Performed By: #### 1 0, 61949 ####[facility] [id number], [facility] Creatinine [Mass/Vol] 2.90 mg/dL High 0.70-1.30 [facility] Comment on above: Order Comment: No: D o not add to previous drawNurse draw Performed By: #### 1 0, 38446 ####[facility] [place] [address], [facility] eGFR- 26 ml/min/1.73sq m Abnormal >60 [facility] Comment on above: Order Comment: No: D o not add to previous drawNurse draw Result Comment: Calc ulation may not be valid for patients over 70 years Performed By: #### 1 0, 06744 ####[facility] [id number], [facility] eGFR- non- 21 ml/min/1.73sq m Abnormal >60 [facility] Comment on above: Order Comment: No: D o not add to previous drawNurse draw Result Comment: Calc ulation may not be valid for patients over 70 years Performed By: #### 1 0, 83160 ####[facility] [place] [address], [place] Glucose [Mass/Vol] 97 mg/dL Normal 70-100 [facility] Comment on above: Order Comment: No: D o not add to previous drawNurse draw Performed By: #### 1 69, 05803 ####[facility] [place] [address], [place] Potassium [Moles/Vol] 4.4 mmol/L Normal 3.5-5.1 [facility] Comment on above: Order Comment: No: D o not add to previous drawNurse draw Performed By: #### 1 69, 48548 ####[facility] [place] [address], [place] Protein [Mass/Vol] 6.5 g/dL Normal 6.0-8.3 [facility] Comment on above: Order Comment: No: D o not add to previous drawNurse draw Performed By: #### 1 69, 89336 ####[facility] [place] [address], [place] Sodium [Moles/Vol] 134 mmol/L Low 136-145 [facility] Comment on above: Order Comment: No: D o not add to previous drawNurse draw Performed By: #### 1 69, 98098 ####[facility] [place] [address], [place] Urea nitrogen [Mass/Vol] 31 mg/dL High 7-25 [facility] Comment on above: Order Comment: No: D o not add to previous drawNurse draw Performed By: #### 1 69, 26474 ####[facility] [place] [address], [place] MAGNESIUM BLOODon 05-31-2021 Magnesium [Mass/Vol] 1.8 mg/dL Low 1.9-2.7 [facility] Comment on above: Performed By: #### 1 0070, 70038 ####[facility] [place] [address], [facility] POC GLUCOSE LABon 05-31-2021 Glucose [Mass/Vol] 120 mg/dL High 70-100 [facility] Comment on above: Performed By: #### 8 5499 ####[facility] [place] [address], [place] Glucose [Mass/Vol] 124 mg/dL High 70-100 [facility] Comment on above: Performed By: #### 8 5499 ####[facility] [place] [address], [place] Glucose [Mass/Vol] 136 mg/dL High 70-100 [facility] Comment on above: Performed By: #### 8 5499 ####[facility] [place] [address], [place] Glucose [Mass/Vol] 115 mg/dL High 70-100 [facility] Comment on above: Performed By: #### 8 5499 ####[facility] [place] [address], [place] PORTABLE CHEST 1 VIEWon 100 PORTABLE CHEST 1 VIEW Normal [facility] Comment on above: Order Comment: evalu ate for CHF PROTHROMBIN TIMEon INR Coag (PPP) [Relative time] 1.13 {INR} Normal 0.91-1.16 [facility] Comment on above: Result Comment: ACCC P RECOMMENDED INR FOR WARFARIN THERAPY CONDITION INRPROPHYLAXIS OF VENOUS THROMBOSIS 2-3(HIGH-RISK SURGERY)TREATMENT OF VENOUS THROMBOSIS 2-3TREATMENT OF PULMONARY EMBOLISM 2-3PREVENTION OF SYSTEMIC EMBOLISM: 2-3 ACUTE MYOCARDIAL INFARCTION TISSUE HEART VALVES VALVULAR HEART DISEASE ATRIAL FIBRILLATION RECURRENT SYSTEMIC EMBOLISMMECHANICAL HEART VALVE 2.5-3.5 FROM: ORAL ANTICOAGULANTS. MECHANISM OF ACTION, CLINICALEFFECTIVENESS, AND OPTIMAL THERAPEUTIC RANGE. [id number]. Performed By: #### 5 7307, 54362 ####[place] [address] PT Coag (PPP) [Time] 14.5 s Normal 12.3-14.8 [facility] Comment on above: Result Comment: ALL RESULTS MUST BE INTERPRETED WITH RESPECT TO BLOOD DRAWING ARTIFACTOR DILUTION ERROR OF ANTICOAGULANT AT THE TIME OF SAMPLING. Performed By: #### 5 7307, 09780 ####[place] [address] [facility].[address] ALBUMIN BLOODon 05-30-2021 Albumin [Mass/Vol] 3.0 g/dL Low 3.5-5.7 [facility] Comment on above: Performed By: #### 1 0070, 97683, ####[facility]3000 [facility].[address] BASIC METABOLIC PANELon 10-0 Calcium [Mass/Vol] 8.6 mg/dL Normal 8.6-10.3 [facility] Comment on above: Order Comment: No: D o not add to previous draw Performed By: #### 1 69, , ####[facility]3000 [facility].[address] Chloride [Moles/Vol] 102 mmol/L Normal 98-107 [facility] Comment on above: Order Comment: No: D o not add to previous draw Performed By: #### 1 0, , 66140 ####[facility] [place] [address], [facility] CO2 [Moles/Vol] 25 mmol/L Normal 21-31 [facility] Comment on above: Order Comment: No: D o not add to previous draw Performed By: #### 1 0, , 65209 ####[facility] [place] [address], [facility] Creatinine [Mass/Vol] 2.49 mg/dL High 0.70-1.30 [facility] Comment on above: Order Comment: No: D o not add to previous draw Performed By: #### 1 0, , 48968 ####[facility] [place] [address], [facility] eGFR- 31 ml/min/1.73sq m Abnormal >60 [facility] Comment on above: Order Comment: No: D o not add to previous draw Result Comment: Calc ulation may not be valid for patients over 70 years Performed By: #### 1 0, , 04428 ####[facility] [facility] [place] [address], [facility] eGFR- non- 25 ml/min/1.73sq m Abnormal >60 [facility] Comment on above: Order Comment: No: D o not add to previous draw Result Comment: Calc ulation may not be valid for patients over 70 years Performed By: #### 1 0, 46095, 83896 ####[facility] [place] [address], [facility] Glucose [Mass/Vol] 100 mg/dL Normal 70-100 [facility] Comment on above: Order Comment: No: D o not add to previous draw Performed By: #### 1 69, , 06320 ####[facility] Potassium [Moles/Vol] 4.5 mmol/L Normal 3.5-5.1 [facility] Comment on above: Order Comment: No: D o not add to previous draw Performed By: #### 1 69, , ####[facility] Sodium [Moles/Vol] 134 mmol/L Low 136-145 [facility] Comment on above: Order Comment: No: D o not add to previous draw Performed By: #### 1 0, , ####[facility] [facility] Urea nitrogen [Mass/Vol] 32 mg/dL High 7-25 [facility] Comment on above: Order Comment: No: D o not add to previous draw Performed By: #### 1 69, , ####[facility]3000 [facility].[address] CBC COMPLETE BLOOD COUNTon Erythrocyte distribution width (RBC) [Ratio] 15.7 % High 11.5-15.0 [facility] Comment on above: Order Comment: No: D o not add to previous draw Performed By: #### 5 0608 ####[facility] [facility] Hematocrit (Bld) [Volume fraction] 26.5 % Low 39.0-50.0 [facility] Comment on above: Order Comment: No: D o not add to previous draw Performed By: #### 5 0608 ####[facility] [facility] Hemoglobin (Bld) [Mass/Vol] 8.4 g/dL Low 13.0-17.0 [facility] Comment on above: Order Comment: No: D o not add to previous draw Performed By: #### 5 0608 ####[facility] [facility].[address] MCH (RBC) [Entitic mass] 28.9 pg Normal 27.0-33.0 [facility] Comment on above: Order Comment: No: D o not add to previous draw Performed By: #### 5 0608 ####[facility] [facility].[address] MCHC (RBC) [Mass/Vol] 31.7 g/dL Low 32.0-35.0 [facility] Comment on above: Order Comment: No: D o not add to previous draw Performed By: #### 5 0608 ####[facility] [place] [address].[address] MCV (RBC) [Entitic vol] 91.1 fL Normal 82.0-98.0 [facility] Comment on above: Order Comment: No: D o not add to previous draw Performed By: #### 5 0608 ####[facility] Nucleated RBC/100 WBC (Bld) [Ratio] 0 % Normal 0-0 [facility] Comment on above: Order Comment: No: D o not add to previous draw Performed By: #### 5 0608 ####[facility] [place] [address].[address] PLAT CNT 338 10*3/uL Normal 150-400 [facility] Comment on above: Order Comment: No: D o not add to previous draw Performed By: #### 5 0608 ####[facility] [place] [address] RBC (Bld) [#/Vol] 2.91 10*6/uL Low 4.20-5.70 [facility] Comment on above: Order Comment: No: D o not add to previous draw Performed By: #### 5 0608 ####[facility] [place] [address], [place] WBC (Bld) [#/Vol] 7.23 10*3/uL Normal 4.00-10.60 [facility] Comment on above: Order Comment: No: D o not add to previous draw Performed By: #### 5 0608 ####[facility] [place] [address], [place] CREATININE URINE RANDOMon Creatinine (U) [Mass/Vol] 39.0 mg/dL Normal [facility] Comment on above: Order Comment: No: D o not add to previous draw Result Comment: Ther e are no established reference values for random urine specimens Performed By: #### 2 5706, 16594 ####[facility] [place] [address], [place] MAGNESIUM BLOODon 05-30-2021 Magnesium [Mass/Vol] 1.9 mg/dL Normal 1.9-2.7 [facility] Comment on above: Order Comment: No: D o not add to previous draw Performed By: #### 1 0070, 86393, 62047 ####[facility] [place] [address], [place] POC GLUCOSE LABon 05-30-2021 Glucose [Mass/Vol] 155 mg/dL High 70-100 [facility] Comment on above: Performed By: #### 8 5499 ####[facility] [place] [address], [place] Glucose [Mass/Vol] 129 mg/dL High 70-100 [facility] Comment on above: Performed By: #### 8 5499 ####[facility] [place] [address], [place] Glucose [Mass/Vol] 147 mg/dL High 70-100 [facility] Comment on above: Performed By: #### 8 5499 ####[facility] [place] [address], [facility] PORTABLE CHEST 1 VIEWon PORTABLE CHEST 1 VIEW Normal [facility] Comment on above: Order Comment: Evalu ate for Atelectasis T PROT UR Isi 05-30-2021 U TOTAL PROTEIN 88.8 mg/dL Normal [facility] Comment on above: Order Comment: No: D o not add to previous draw Result Comment: Ther e are no established reference values for random urine specimens Performed By: #### 2 5706, 46571 ####[facility] [place] [address], [facility] URINE TRINH STAIN/EOSon EOSINOPHIL SMEAR NONE SEEN Normal NSN [facility] Comment on above: Order Comment: No: D o not add to previous draw [place] Normal [facility] Comment on above: Order Comment: No: D o not add to previous draw Result Comment: Test Performed by [facility] [address] [place] [id number] - Released 05/30/2021 20:40 US RENALon 05-30-2021 US RENAL Normal [facility] Comment on above: Order Comment: Other , FREDA BASIC METABOLIC PANELon Calcium [Mass/Vol] 8.4 mg/dL Low 8.6-10.3 [facility] Comment on above: Order Comment: No: D o not add to previous draw Performed By: #### 4 999, 95056, 77427 ####[facility] [place] [address], [place] Chloride [Moles/Vol] 102 mmol/L Normal 98-107 [facility] Comment on above: Order Comment: No: D o not add to previous draw Performed By: #### 4 1000, 91999, 35442 ####[facility] [place] [address], [place] CO2 [Moles/Vol] 25 mmol/L Normal 21-31 [facility] Comment on above: Order Comment: No: D o not add to previous draw Performed By: #### 4 1000, 54737, 49090 ####[facility] [place] [address], [facility] Creatinine [Mass/Vol] 2.12 mg/dL High 0.70-1.30 [facility] Comment on above: Order Comment: No: D o not add to previous draw Performed By: #### 4 1000, 91114, 50460 ####[facility] eGFR- 37 ml/min/1.73sq m Abnormal >60 [facility] Comment on above: Order Comment: No: D o not add to previous draw Result Comment: Calc ulation may not be valid for patients over 70 years Performed By: #### 4 1000, 37229, 10249 ####[facility] [facility] eGFR- non- 30 ml/min/1.73sq m Abnormal >60 [facility] Comment on above: Order Comment: No: D o not add to previous draw Result Comment: Calc ulation may not be valid for patients over 70 years Performed By: #### 4 1000, 22997, 80733 ####[facility] [place] [address], [facility] Glucose [Mass/Vol] 103 mg/dL High 70-100 [facility] Comment on above: Order Comment: No: D o not add to previous draw Performed By: #### 4 1000, 96764, 23125 ####[facility] [place] [address], [facility] Potassium [Moles/Vol] 4.6 mmol/L Normal 3.5-5.1 [facility] Comment on above: Order Comment: No: D o not add to previous draw Performed By: #### 4 1000, 92751, 11513 ####[facility] Sodium [Moles/Vol] 133 mmol/L Low 136-145 [facility] Comment on above: Order Comment: No: D o not add to previous draw Performed By: #### 4 1000, 10213, 86316 ####[facility] [facility].[address] Urea nitrogen [Mass/Vol] 33 mg/dL High 7-25 [facility] Comment on above: Order Comment: No: D o not add to previous draw Performed By: #### 4 1000, 06454, 32835 ####[facility] CBC COMPLETE BLOOD COUNTon Erythrocyte distribution width (RBC) [Ratio] 15.7 % High 11.5-15.0 [facility] Comment on above: Order Comment: No: D o not add to previous draw Performed By: #### 5 0608 ####[facility] Hematocrit (Bld) [Volume fraction] 26.4 % Low 39.0-50.0 [facility] Comment on above: Order Comment: No: D o not add to previous draw Performed By: #### 5 0608 ####[facility] [facility].[address] Hemoglobin (Bld) [Mass/Vol] 8.4 g/dL Low 13.0-17.0 [facility] Comment on above: Order Comment: No: D o not add to previous draw Performed By: #### 5 0608 ####[facility] [place] [address].[address] MCH (RBC) [Entitic mass] 29.0 pg Normal 27.0-33.0 [facility] Comment on above: Order Comment: No: D o not add to previous draw Performed By: #### 5 0608 ####[facility] [place] [address], [facility] MCHC (RBC) [Mass/Vol] 31.8 g/dL Low 32.0-35.0 [facility] Comment on above: Order Comment: No: D o not add to previous draw Performed By: #### 5 0608 ####[facility] [facility] [place] [address], [facility] MCV (RBC) [Entitic vol] 91.0 fL Normal 82.0-98.0 [facility] Comment on above: Order Comment: No: D o not add to previous draw Performed By: #### 5 0608 ####[place] [address] [address] Nucleated RBC/100 WBC (Bld) [Ratio] 0 % Normal 0-0 [facility] Comment on above: Order Comment: No: D o not add to previous draw Performed By: #### 5 0608 ####[facility] PLAT CNT 346 10*3/uL Normal 150-400 [facility] Comment on above: Order Comment: No: D o not add to previous draw Performed By: #### 5 0608 ####[address] RBC (Bld) [#/Vol] 2.90 10*6/uL Low 4.20-5.70 [facility] Comment on above: Order Comment: No: D o not add to previous draw Performed By: #### 5 0608 ####[facility] [facility] [place] [address], [facility] WBC (Bld) [#/Vol] 7.17 10*3/uL Normal 4.00-10.60 [facility] Comment on above: Order Comment: No: D o not add to previous draw Performed By: #### 5 0608 ####[facility] [place] [address], [place] MAGNESIUM BLOODon 05-29-2021 Magnesium [Mass/Vol] 1.9 mg/dL Normal 1.9-2.7 [facility] Comment on above: Order Comment: No: D o not add to previous draw Performed By: #### 4 1000, 32082, 16760 ####[facility] [place] [address], [place] PHOSPHORUS BLOODon Phosphate [Mass/Vol] 4.4 mg/dL Normal 2.5-5.0 [facility] Comment on above: Order Comment: No: D o not add to previous draw Performed By: #### 4 1000, 89693, 05698 ####[facility] [place] [address], [place] POC GLUCOSE LABon 05-29-2021 Glucose [Mass/Vol] 183 mg/dL High 70-100 [facility] Comment on above: Performed By: #### 8 5499 ####[facility] [place] [address], [place] Glucose [Mass/Vol] 124 mg/dL High 70-100 [facility] Comment on above: Performed By: #### 8 5499 ####[facility] [place] [address], [place] Glucose [Mass/Vol] 187 mg/dL High 70-100 [facility] Comment on above: Performed By: #### 8 5499 ####[facility] [place] [address], [place] Glucose [Mass/Vol] 189 mg/dL High 70-100 [facility] Comment on above: Performed By: #### 8 5499 ####[facility] [place] [address], [place] PORTABLE CHEST 1 VIEWon 10-0 PORTABLE CHEST 1 VIEW Normal [facility] Comment on above: Order Comment: evalu ate for Atelectasis BASIC METABOLIC PANELon 10-0 Calcium [Mass/Vol] 8.3 mg/dL Low 8.6-10.3 [facility] Comment on above: Order Comment: No: D o not add to previous draw Performed By: #### 2 5508, 91918, 79862, 77601 ####[facility] [place] [address], [facility] Chloride [Moles/Vol] 99 mmol/L Normal 98-107 [facility] Comment on above: Order Comment: No: D o not add to previous draw Performed By: #### 2 5508, 99268, 40980, 01713 ####[facility] [place] [address], [facility] CO2 [Moles/Vol] 26 mmol/L Normal 21-31 [facility] Comment on above: Order Comment: No: D o not add to previous draw Performed By: #### 2 5508, 73345, 61627, 96214 ####[facility] [place] [address], [facility] Creatinine [Mass/Vol] 2.18 mg/dL High 0.70-1.30 [facility] Comment on above: Order Comment: No: D o not add to previous draw Performed By: #### 2 5508, 89475, 80533, 08800 ####[facility] [place] [address], [facility] eGFR- 36 ml/min/1.73sq m Abnormal >60 [facility] Comment on above: Order Comment: No: D o not add to previous draw Result Comment: Calc ulation may not be valid for patients over 70 years Performed By: #### 2 5508, 35861, 71214, 59449 ####[facility] [place] [address], [facility] eGFR- non- 29 ml/min/1.73sq m Abnormal >60 [facility] Comment on above: Order Comment: No: D o not add to previous draw Result Comment: Calc ulation may not be valid for patients over 70 years Performed By: #### 2 5508, 85411, 56852, 69713 ####[facility] Glucose [Mass/Vol] 100 mg/dL Normal 70-100 [facility] Comment on above: Order Comment: No: D o not add to previous draw Performed By: #### 2 5508, 91208, 78746, 57878 ####[facility] [facility].[address] Potassium [Moles/Vol] 5.3 mmol/L High 3.5-5.1 [facility] Comment on above: Order Comment: No: D o not add to previous draw Performed By: #### 2 5508, 17409, 52990, 93805 ####[facility] Sodium [Moles/Vol] 131 mmol/L Low 136-145 [facility] Comment on above: Order Comment: No: D o not add to previous draw Performed By: #### 2 5508, 00879, 13092, 58570 ####[facility] [facility] Urea nitrogen [Mass/Vol] 33 mg/dL High 7-25 [facility] Comment on above: Order Comment: No: D o not add to previous draw Performed By: #### 2 5508, 94292, 18614, 62750 ####[facility] [place] [address], [facility] CBC W/DIFFon 05-28-2021 ABS IMM GRANS 0.2 10*3/uL Normal 0.0-0.2 [facility] Comment on above: Performed By: #### 5 0103 ####[facility] [place] [address], [facility] ABS NEUTROPHILS 5.6 10*3/uL Normal 1.6-7.6 [facility] Comment on above: Performed By: #### 5 3 ####[facility] [place] [address], [facility] Basophils (Bld) [#/Vol] 0.0 10*3/uL Normal 0.0-0.2 [facility] Comment on above: Performed By: #### 5 3 ####[facility] [place] [address], [facility] Basophils/100 WBC (Bld) 0.5 % Normal 0.0-1.0 [facility] Comment on above: Performed By: #### 3 ####[facility] [place] [address], [facility] Eosinophils (Bld) [#/Vol] 0.4 10*3/uL Normal 0.0-0.5 [facility] Comment on above: Performed By: #### 5 3 ####[facility] [place] [address], [facility] Eosinophils/100 WBC (Bld) 4.5 % Normal 0.0-6.0 [facility] Comment on above: Performed By: #### 5 3 ####[facility] [facility].[address] Erythrocyte distribution width (RBC) [Ratio] 15.6 % High 11.5-15.0 [facility] Comment on above: Performed By: #### 5 3 ####[facility] [place] [address], [facility] Hematocrit (Bld) [Volume fraction] 27.7 % Low 39.0-50.0 [facility] Comment on above: Performed By: #### 5 0103 ####[facility] Hemoglobin (Bld) [Mass/Vol] 8.6 g/dL Low 13.0-17.0 [facility] Comment on above: Performed By: #### 5 3 ####[facility] [place] [address] IMMATURE GRANS 1.8 % High 0.0-1.0 [facility] Comment on above: Performed By: #### 5 3 ####[address] Lymphocytes (Bld) [#/Vol] 1.8 10*3/uL Normal 1.2-4.0 [facility] Comment on above: Performed By: #### 5 3 ####[address] Lymphocytes/100 WBC (Bld) 20.4 % Normal 20.0-45.0 [facility] Comment on above: Performed By: #### 5 3 ####[address] MCH (RBC) [Entitic mass] 28.6 pg Normal 27.0-33.0 [facility] Comment on above: Performed By: #### 5 3 ####[facility] MCHC (RBC) [Mass/Vol] 31.0 g/dL Low 32.0-35.0 [facility] Comment on above: Performed By: #### 5 3 ####[facility] [place] [address] MCV (RBC) [Entitic vol] 92.0 fL Normal 82.0-98.0 T [facility] Comment on above: Performed By: #### 3 ####[facility] [facility] [place] [address], [facility] Monocytes (Bld) [#/Vol] 0.9 10*3/uL Normal 0.1-1.0 [facility] Comment on above: Performed By: #### 102 ####[facility] [facility].[address] MONOS 9.9 % Normal 5.0-12.0 [facility] Comment on above: Performed By: #### 102 ####[facility] Neutrophils/100 WBC (Bld) 62.9 % Normal 40.0-72.0 [facility] Comment on above: Performed By: #### 102 ####[facility] Nucleated RBC/100 WBC (Bld) [Ratio] 0 % Normal 0-0 [facility] Comment on above: Performed By: #### 102 ####[facility] [facility].[address] PLAT CNT 387 10*3/uL Normal 150-400 [facility] Comment on above: Performed By: #### 102 ####[facility] [facility].[address] RBC (Bld) [#/Vol] 3.01 10*6/uL Low 4.20-5.70 [facility] Comment on above: Performed By: #### 102 ####[facility] WBC (Bld) [#/Vol] 8.82 10*3/uL Normal 4.00-10.60 [facility] Comment on above: Performed By: #### 5 0103 ####[facility] [place] [address], [facility] CPKon 05-28-2021 CK [Catalytic activity/Vol] 19 U/L Low 30-223 [facility] Comment on above: Performed By: #### 2 5508, 36356, 40140, 32707 ####[facility] [place] [address], [facility] MAGNESIUM BLOODon 05-28-2021 Magnesium [Mass/Vol] 1.9 mg/dL Normal 1.9-2.7 [facility] Comment on above: Order Comment: No: D o not add to previous draw Performed By: #### 2 5508, 78845, 82294, 19424 ####[facility] [place] [address], [facility] Operative Reporton 1 Operative Report Normal [facility] PHOSPHORUS BLOODon 1 Phosphate [Mass/Vol] 4.5 mg/dL Normal 2.5-5.0 [facility] Comment on above: Performed By: #### 2 5508, 69114, 51235, 30696 ####[facility] [place] [address], [facility] POC GLUCOSE LABon 05-28-2021 Glucose [Mass/Vol] 120 mg/dL High 70-100 [facility] Comment on above: Performed By: #### 8 0699 ####[facility] [place] [address], [place] Glucose [Mass/Vol] 130 mg/dL High 70-100 [facility] Comment on above: Performed By: #### 8 5255 ####[facility] [place] [address], [place] Glucose [Mass/Vol] 117 mg/dL High 70-100 [facility] Comment on above: Performed By: #### 8 0323 ####[facility] [place] [address], [place] Glucose [Mass/Vol] 175 mg/dL High 70-100 [facility] Comment on above: Performed By: #### 8 5499 ####[facility] [place] [address], [place] Glucose [Mass/Vol] 107 mg/dL High 70-100 [facility] Comment on above: Performed By: #### 8 5499 ####[facility] [place] [address], [place] BASIC METABOLIC PANELon 10-0 Calcium [Mass/Vol] 8.4 mg/dL Low 8.6-10.3 [facility] Comment on above: Order Comment: No: D o not add to previous draw Performed By: #### 0 0071, 69094, 77253 ####[facility] [place] [address], [place] Chloride [Moles/Vol] 99 mmol/L Normal 98-107 [facility] Comment on above: Order Comment: No: D o not add to previous draw Performed By: #### 0 0071, 73289, 14797 ####[facility] [place] [address], [place] CO2 [Moles/Vol] 29 mmol/L Normal 21-31 [facility] Comment on above: Order Comment: No: D o not add to previous draw Performed By: #### 0 0071, 59950, 55754 ####[facility] [place] [address], [place] Creatinine [Mass/Vol] 1.78 mg/dL High 0.70-1.30 [facility] Comment on above: Order Comment: No: D o not add to previous draw Performed By: #### 0 0071, 93824, 58405 ####[facility] [place] [address], [facility] eGFR- 45 ml/min/1.73sq m Abnormal >60 [facility] Comment on above: Order Comment: No: D o not add to previous draw Result Comment: Calc ulation may not be valid for patients over 70 years Performed By: #### 0 0071, 29151, 21220 ####[facility] [place] [address], [facility] eGFR- non- 37 ml/min/1.73sq m Abnormal >60 [facility] Comment on above: Order Comment: No: D o not add to previous draw Result Comment: Calc ulation may not be valid for patients over 70 years Performed By: #### 0 0071, , 74876 ####[facility] [place] [address], [facility] Glucose [Mass/Vol] 96 mg/dL Normal 70-100 [facility] Comment on above: Order Comment: No: D o not add to previous draw Performed By: #### 0 0071, , 57931 ####[facility] [place] [address], [facility] Potassium [Moles/Vol] 4.7 mmol/L Normal 3.5-5.1 [facility] Comment on above: Order Comment: No: D o not add to previous draw Performed By: #### 0 0071, , 13962 ####[facility] [place] [address], [place] Sodium [Moles/Vol] 133 mmol/L Low 136-145 [facility] Comment on above: Order Comment: No: D o not add to previous draw Performed By: #### 0 0071, 26223, 16709 ####[facility] [place] [address], [place] Urea nitrogen [Mass/Vol] 33 mg/dL High 7-25 [facility] Comment on above: Order Comment: No: D o not add to previous draw Performed By: #### 0 0071, 25777, 20383 ####[facility] C REACTIVE PROTEINon 021 CRP [Mass/Vol] 47.2 mg/L High 0.0-7.0 [facility] Comment on above: Order Comment: Yes: Add to Previous draw if able Performed By: #### 6 1405 ####[facility] [facility].[address] CBC COMPLETE BLOOD COUNTon Erythrocyte distribution width (RBC) [Ratio] 15.5 % High 11.5-15.0 [facility] Comment on above: Order Comment: No: D o not add to previous drawNurse draw Performed By: #### 5 6506, 21785 ####[facility] [facility].[address] Hematocrit (Bld) [Volume fraction] 24.7 % Low 39.0-50.0 [facility] Comment on above: Order Comment: No: D o not add to previous drawNurse draw Performed By: #### 5 6506, 55853 ####[facility] [facility].[address] Hemoglobin (Bld) [Mass/Vol] 7.7 g/dL Low 13.0-17.0 [facility] Comment on above: Order Comment: No: D o not add to previous drawNurse draw Performed By: #### 5 6506, 22360 ####[facility] [facility] [place] [address], [facility] MCH (RBC) [Entitic mass] 28.5 pg Normal 27.0-33.0 [facility] Comment on above: Order Comment: No: D o not add to previous drawNurse draw Performed By: #### 5 8926, 13840 ####[facility] [facility].[address] MCHC (RBC) [Mass/Vol] 31.2 g/dL Low 32.0-35.0 [facility] Comment on above: Order Comment: No: D o not add to previous drawNurse draw Performed By: #### 5 6506, 08798 ####[facility] [facility] [place] [address], [facility] MCV (RBC) [Entitic vol] 91.5 fL Normal 82.0-98.0 [facility] Comment on above: Order Comment: No: D o not add to previous drawNurse draw Performed By: #### 5 6506, 10254 ####[facility] [facility] [place] [address], [facility] Nucleated RBC/100 WBC (Bld) [Ratio] 0 % Normal 0-0 [facility] Comment on above: Order Comment: No: D o not add to previous drawNurse draw Performed By: #### 5 6506, 38387 ####[facility] [facility] [place] [address], [facility] PLAT CNT 332 10*3/uL Normal 150-400 [facility] Comment on above: Order Comment: No: D o not add to previous drawNurse draw Performed By: #### 5 6506, 24863 ####[place] [address] [facility] [place] [address], [facility] RBC (Bld) [#/Vol] 2.70 10*6/uL Low 4.20-5.70 [facility] Comment on above: Order Comment: No: D o not add to previous drawNurse draw Performed By: #### 5 6506, 05486 ####[facility] [facility] [place] [address], [facility] WBC (Bld) [#/Vol] 7.87 10*3/uL Normal 4.00-10.60 [facility] Comment on above: Order Comment: No: D o not add to previous drawNurse draw Performed By: #### 5 6506, 89346 ####[facility] [place] [address], [place] MAGNESIUM BLOODon 05-27-2021 Magnesium [Mass/Vol] 2.1 mg/dL Normal 1.9-2.7 [facility] Comment on above: Order Comment: No: D o not add to previous draw Performed By: #### 0 0071, 78077, 46477 ####[facility] [place] [address], [place] POC GLUCOSE LABon 05-27-2021 Glucose [Mass/Vol] 134 mg/dL High 70-100 [facility] Comment on above: Performed By: #### 8 5499 ####[facility] [place] [address], [place] Glucose [Mass/Vol] 109 mg/dL High 70-100 [facility] Comment on above: Performed By: #### 8 5499 ####[facility] [place] [address], [place] Glucose [Mass/Vol] 151 mg/dL High 70-100 [facility] Comment on above: Performed By: #### 8 5499 ####[facility] [place] [address], [place] Glucose [Mass/Vol] 114 mg/dL High 70-100 [facility] Comment on above: Performed By: #### 8 5499 ####[facility] [place] [address], [place] PORTABLE CHEST 1 VIEWon PORTABLE CHEST 1 VIEW Normal [facility] Comment on above: Order Comment: evalu ate for Atelectasis RBC'S 1 UNITon 05-27-2021 CROSSMATCH INTERP 1 COMP Normal [facility] Comment on above: Performed By: #### 8 6001 ####[facility] PRODUCT CODE 1 E0336 Normal [facility] Comment on above: Performed By: #### 8 6001 ####[facility] [facility].[address] PRODUCT STATUS 1 PT Normal [facility] Comment on above: Result Comment: Resu lt changed by IF on 05/27/2021 11:45. The previous value was XM.Result changed by IF on 05/28/2021 00:30. The previous value was IS. Performed By: #### 8 6001 ####[facility] UNIT ABO 1 O Normal [facility] Comment on above: Performed By: #### 8 6001 ####[facility] [facility] UNIT ID 1 [id number] Normal [facility] Comment on above: Performed By: #### 8 6001 ####[facility] UNIT RH 1 Negative Normal [facility] Comment on above: Performed By: #### 8 6001 ####[facility] SEDIMENTATION RATEon 021 SED RATE 48 mm/hr High 0-10 [facility] Comment on above: Performed By: #### 5 6506, 70021 ####[facility] [place] [address], [facility] VANCOMYCIN RANDOMon 05-27-20 21 VANCOMYCIN RAND 12.2 mcg/mL Normal [facility] Comment on above: Performed By: #### 0 0071, 37547, 24871 ####[facility] [place] [address], [facility] BASIC METABOLIC PANELon 10-0 Calcium [Mass/Vol] 8.2 mg/dL Low 8.6-10.3 [facility] Comment on above: Order Comment: No: D o not add to previous draw Performed By: #### 1 69, 81066 ####[facility] [place] [address], [facility] Chloride [Moles/Vol] 98 mmol/L Normal 98-107 [facility] Comment on above: Order Comment: No: D o not add to previous draw Performed By: #### 1 69, 52755 ####[facility] [place] [address], [facility] CO2 [Moles/Vol] 30 mmol/L Normal 21-31 [facility] Comment on above: Order Comment: No: D o not add to previous draw Performed By: #### 1 69, 19906 ####[facility] [facility] [place] [address], [facility] Creatinine [Mass/Vol] 1.78 mg/dL High 0.70-1.30 [facility] Comment on above: Order Comment: No: D o not add to previous draw Performed By: #### 1 69, 84067 ####[facility] [facility].[address] eGFR- 45 ml/min/1.73sq m Abnormal >60 [facility] Comment on above: Order Comment: No: D o not add to previous draw Result Comment: Calc ulation may not be valid for patients over 70 years Performed By: #### 1 69, 57094 ####[facility] [facility] [place] [address], [facility] eGFR- non- 37 ml/min/1.73sq m Abnormal >60 [facility] Comment on above: Order Comment: No: D o not add to previous draw Result Comment: Calc ulation may not be valid for patients over 70 years Performed By: #### 1 69, 53563 ####[facility] [place] [address], [facility] Glucose [Mass/Vol] 97 mg/dL Normal 70-100 [facility] Comment on above: Order Comment: No: D o not add to previous draw Performed By: #### 1 69, 64630 ####[facility] [place] [address], [facility] Potassium [Moles/Vol] 4.8 mmol/L Normal 3.5-5.1 [facility] Comment on above: Order Comment: No: D o not add to previous draw Performed By: #### 1 69, 90607 ####[facility] [place] [address], [facility] Sodium [Moles/Vol] 131 mmol/L Low 136-145 [facility] Comment on above: Order Comment: No: D o not add to previous draw Performed By: #### 1 69, 57733 ####[facility] [facility] [place] [address], [facility] Urea nitrogen [Mass/Vol] 35 mg/dL High 7-25 [facility] Comment on above: Order Comment: No: D o not add to previous draw Performed By: #### 1 69, 01305 ####[facility] [facility] [place] [address], [facility] CBC COMPLETE BLOOD COUNTon Erythrocyte distribution width (RBC) [Ratio] 15.4 % High 11.5-15.0 [facility] Comment on above: Order Comment: No: D o not add to previous drawNurse draw Performed By: #### 5 08 ####[facility] [facility] [place] [address], [facility] Hematocrit (Bld) [Volume fraction] 24.3 % Low 39.0-50.0 [facility] Comment on above: Order Comment: No: D o not add to previous drawNurse draw Performed By: #### 5 0608 ####[facility] Hemoglobin (Bld) [Mass/Vol] 7.9 g/dL Low 13.0-17.0 [facility] Comment on above: Order Comment: No: D o not add to previous drawNurse draw Performed By: #### 5 0608 ####[facility] [facility].[address] MCH (RBC) [Entitic mass] 28.6 pg Normal 27.0-33.0 [facility] Comment on above: Order Comment: No: D o not add to previous drawNurse draw Performed By: #### 5 0608 ####[facility] MCHC (RBC) [Mass/Vol] 32.5 g/dL Normal 32.0-35.0 [facility] Comment on above: Order Comment: No: D o not add to previous drawNurse draw Performed By: #### 5 0608 ####[facility] MCV (RBC) [Entitic vol] 88.0 fL Normal 82.0-98.0 [facility] Comment on above: Order Comment: No: D o not add to previous drawNurse draw Performed By: #### 5 0608 ####[facility] [facility].[address] Nucleated RBC/100 WBC (Bld) [Ratio] 0 % Normal 0-0 [facility] Comment on above: Order Comment: No: D o not add to previous drawNurse draw Performed By: #### 5 0608 ####[facility] PLAT CNT 320 10*3/uL Normal 150-400 [facility] Comment on above: Order Comment: No: D o not add to previous drawNurse draw Performed By: #### 5 0608 ####[facility] [place] [address], [facility] RBC (Bld) [#/Vol] 2.76 10*6/uL Low 4.20-5.70 [facility] Comment on above: Order Comment: No: D o not add to previous drawNurse draw Performed By: #### 5 0608 ####[facility] [place] [address], [facility] WBC (Bld) [#/Vol] 7.52 10*3/uL Normal 4.00-10.60 [facility] Comment on above: Order Comment: No: D o not add to previous drawNurse draw Performed By: #### 5 0608 ####[facility] [facility] [id number], [facility] MAGNESIUM BLOODon 05-26-2021 Magnesium [Mass/Vol] 2.1 mg/dL Normal 1.9-2.7 [facility] Comment on above: Order Comment: No: D o not add to previous draw Performed By: #### 1 0070, 39953 ####[facility] [facility] [place] [address], [facility] POC GLUCOSE LABon 05-26-2021 Glucose [Mass/Vol] 138 mg/dL High 70-100 [facility] Comment on above: Performed By: #### 8 5499 ####[facility] [place] [address], [facility] Glucose [Mass/Vol] 119 mg/dL High 70-100 [facility] Comment on above: Performed By: #### 8 5499 ####[facility] [place] [address], [facility] Glucose [Mass/Vol] 118 mg/dL High 70-100 [facility] Comment on above: Performed By: #### 8 5499 ####[facility] [place] [address], [facility] PORTABLE CHEST 1 VIEWon 10-0 PORTABLE CHEST 1 VIEW Normal [facility] Comment on above: Order Comment: evalu ate for Atelectasis BASIC METABOLIC PANELon 10-0 Calcium [Mass/Vol] 8.1 mg/dL Low 8.6-10.3 [facility] Comment on above: Order Comment: No: D o not add to previous draw Performed By: #### 3 0953, 28514, 66295 ####[facility] [place] [address], [facility] Chloride [Moles/Vol] 95 mmol/L Low 98-107 [facility] Comment on above: Order Comment: No: D o not add to previous draw Performed By: #### 3 0953, 25978, 10515 ####[facility] [place] [address], [facility] CO2 [Moles/Vol] 27 mmol/L Normal 21-31 [facility] Comment on above: Order Comment: No: D o not add to previous draw Performed By: #### 3 0953, 99619, 66907 ####[facility] Creatinine [Mass/Vol] 2.13 mg/dL High 0.70-1.30 [facility] Comment on above: Order Comment: No: D o not add to previous draw Performed By: #### 3 0953, 65275, 93141 ####[facility] eGFR- 37 ml/min/1.73sq m Abnormal >60 [facility] Comment on above: Order Comment: No: D o not add to previous draw Result Comment: Calc ulation may not be valid for patients over 70 years Performed By: #### 3 0953, 63607, 69164 ####[facility] [place] [address], [facility] eGFR- non- 30 ml/min/1.73sq m Abnormal >60 [facility] Comment on above: Order Comment: No: D o not add to previous draw Result Comment: Calc ulation may not be valid for patients over 70 years Performed By: #### 3 0953, 46189, 18474 ####[facility] [place] [address], [facility] Glucose [Mass/Vol] 122 mg/dL High 70-100 [facility] Comment on above: Order Comment: No: D o not add to previous draw Performed By: #### 3 0953, 78256, 96908 ####[facility] [place] [address], [facility] Potassium [Moles/Vol] 4.8 mmol/L Normal 3.5-5.1 [facility] Comment on above: Order Comment: No: D o not add to previous draw Performed By: #### 3 0953, 05341, 11303 ####[facility] Sodium [Moles/Vol] 128 mmol/L Low 136-145 [facility] Comment on above: Order Comment: No: D o not add to previous draw Performed By: #### 3 0953, 92719, 22875 ####[facility] [facility] Urea nitrogen [Mass/Vol] 35 mg/dL High 7-25 [facility] Comment on above: Order Comment: No: D o not add to previous draw Performed By: #### 3 0953, 43591, 46994 ####[facility] [facility] CBC COMPLETE BLOOD COUNTon Erythrocyte distribution width (RBC) [Ratio] 15.8 % High 11.5-15.0 [facility] Comment on above: Order Comment: No: D o not add to previous draw Performed By: #### 5 0608 ####[facility] [facility].[address] Hematocrit (Bld) [Volume fraction] 22.3 % Low 39.0-50.0 [facility] Comment on above: Order Comment: No: D o not add to previous draw Performed By: #### 5 0608 ####[facility] [facility].[address] Hemoglobin (Bld) [Mass/Vol] 7.3 g/dL Low 13.0-17.0 [facility] Comment on above: Order Comment: No: D o not add to previous draw Performed By: #### 5 0608 ####[place] [address], [facility] MCH (RBC) [Entitic mass] 28.7 pg Normal 27.0-33.0 [facility] Comment on above: Order Comment: No: D o not add to previous draw Performed By: #### 5 0608 ####[facility] MCHC (RBC) [Mass/Vol] 32.7 g/dL Normal 32.0-35.0 [facility] Comment on above: Order Comment: No: D o not add to previous draw Performed By: #### 5 0608 ####[facility] [facility].[address] MCV (RBC) [Entitic vol] 87.8 fL Normal 82.0-98.0 [facility] Comment on above: Order Comment: No: D o not add to previous draw Performed By: #### 5 0608 ####[address] Nucleated RBC/100 WBC (Bld) [Ratio] 0 % Normal 0-0 [facility] Comment on above: Order Comment: No: D o not add to previous draw Performed By: #### 5 0608 ####[facility] [place] [address], [facility] PLAT CNT 292 10*3/uL Normal 150-400 [facility] Comment on above: Order Comment: No: D o not add to previous draw Performed By: #### 5 0608 ####[facility] [place] [address], [facility] RBC (Bld) [#/Vol] 2.54 10*6/uL Low 4.20-5.70 [facility] Comment on above: Order Comment: No: D o not add to previous draw Performed By: #### 5 0608 ####[facility] [place] [address], [facility] WBC (Bld) [#/Vol] 8.90 10*3/uL Normal 4.00-10.60 [facility] Comment on above: Order Comment: No: D o not add to previous draw Performed By: #### 5 0608 ####[facility] [place] [address], [facility] HEMATOCRITon 05-25-2021 Hematocrit (Bld) [Volume fraction] 25.1 % Low 39.0-50.0 [facility] Comment on above: Order Comment: No: D o not add to previous draw Performed By: #### 9 2088, 31909 ####[facility] [place] [address], [facility] HEMOGLOBINon 05-25-2021 Hemoglobin (Bld) [Mass/Vol] 8.4 g/dL Low 13.0-17.0 [facility] Comment on above: Order Comment: No: D o not add to previous draw Performed By: #### 9 2088, 74216 ####[facility] [place] [address], [facility] MAGNESIUM BLOODon 05-25-2021 Magnesium [Mass/Vol] 2.0 mg/dL Normal 1.9-2.7 [facility] Comment on above: Order Comment: No: D o not add to previous draw Performed By: #### 3 0953, 02688, 32937 ####[facility] [place] [address], [place] POC GLUCOSE LABon 05-25-2021 Glucose [Mass/Vol] 136 mg/dL High 70-100 [facility] Comment on above: Performed By: #### 8 5499 ####[facility] [place] [address], [place] Glucose [Mass/Vol] 115 mg/dL High 70-100 [facility] Comment on above: Performed By: #### 8 5499 ####[facility] [place] [address], [place] Glucose [Mass/Vol] 72 mg/dL Normal 70-100 [facility] Comment on above: Performed By: #### 8 5499 ####[facility] [place] [address], [place] Glucose [Mass/Vol] 154 mg/dL High 70-100 [facility] Comment on above: Performed By: #### 8 5499 ####[facility] [facility] [place] [address], [facility] PORTABLE CHEST 1 VIEWon PORTABLE CHEST 1 VIEW Normal [facility] Comment on above: Order Comment: Evalu ate for Effusion RBC'S 2 UNITSon 05-25-2021 CROSSMATCH INTERP 1 COMP Normal [facility] Comment on above: Performed By: #### 8 6002 ####[facility] [facility] [place] [address], [place] CROSSMATCH INTERP 2 COMP Normal [facility] Comment on above: Performed By: #### 8 6002 ####[facility] [place] [address], [facility] PRODUCT CODE 1 [id number] Normal [facility] Comment on above: Performed By: #### 8 6002 ####[facility] [facility] [place] [address], [facility] PRODUCT CODE 2 E0336 Normal [facility] Comment on above: Performed By: #### 8 6002 ####[facility] [facility] [place] [address], [facility] PRODUCT STATUS 1 PT Normal [facility] Comment on above: Result Comment: Resu lt changed by IF on 05/25/2021 13:50. The previous value was XM.Result changed by IF on 05/26/2021 00:30. The previous value was IS. Performed By: #### 8 6002 ####[facility] [facility].[address] PRODUCT STATUS 2 PT Normal [facility] Comment on above: Result Comment: Resu lt changed by IF on 05/25/2021 09:50. The previous value was XM.Result changed by IF on 05/26/2021 00:30. The previous value was IS. Performed By: #### 8 6002 ####[facility] [facility] [place] [address], [facility] UNIT ABO 1 O Normal [facility] Comment on above: Performed By: #### 8 6002 ####[facility] [facility] [place] [address], [facility] UNIT ABO 2 O Normal [facility] Comment on above: Performed By: #### 8 6002 ####[facility] [facility] [place] [address], [facility] UNIT ID 1 [id number] Normal [facility] Comment on above: Performed By: #### 8 6002 ####[facility] [facility] [place] [address], [facility] UNIT ID 2 [id number] Normal [facility] Comment on above: Performed By: #### 8 6002 ####[facility] [place] [address], [facility] UNIT RH 1 Positive Normal [facility] Comment on above: Performed By: #### 8 6002 ####[facility] [place] [address], [facility] UNIT RH 2 Positive Normal [facility] Comment on above: Performed By: #### 8 6002 ####[facility] [id number], [facility] VANCOMYCIN TIMEDon VANCOMYCIN TIMED 24.3 mcg/mL Normal [facility] Comment on above: Performed By: #### 3 0953, 99934, 79312 ####[facility], [place] [id number] [place] [address] BASIC METABOLIC PANELon 10-0 Calcium [Mass/Vol] 7.8 mg/dL Low 8.6-10.3 [facility] Comment on above: Order Comment: No: D o not add to previous draw Performed By: #### 0 0071, 78080, 21368, 52637 ####[facility] [id number], [facility] Chloride [Moles/Vol] 97 mmol/L Low 98-107 [facility] Comment on above: Order Comment: No: D o not add to previous draw Performed By: #### 0 0071, 11309, 28321, 45356 ####[facility] [place] [address], [facility] CO2 [Moles/Vol] 30 mmol/L Normal 21-31 [facility] Comment on above: Order Comment: No: D o not add to previous draw Performed By: #### 0 0071, 88947, 32868, 68661 ####[facility] [place] [address], [facility] Creatinine [Mass/Vol] 1.70 mg/dL High 0.70-1.30 [facility] Comment on above: Order Comment: No: D o not add to previous draw Performed By: #### 0 0071, 40899, 98245, 57891 ####[facility] [place] [address], [facility] eGFR- 48 ml/min/1.73sq m Abnormal >60 [facility] Comment on above: Order Comment: No: D o not add to previous draw Result Comment: Calc ulation may not be valid for patients over 70 years Performed By: #### 0 0071, 30025, 85212, 15612 ####[facility] [place] [address], [facility] eGFR- non- 39 ml/min/1.73sq m Abnormal >60 [facility] Comment on above: Order Comment: No: D o not add to previous draw Result Comment: Calc ulation may not be valid for patients over 70 years Performed By: #### 0 0071, 04668, 48260, 38109 ####[facility] [place] [address], [place] Glucose [Mass/Vol] 132 mg/dL High 70-100 [facility] Comment on above: Order Comment: No: D o not add to previous draw Performed By: #### 0 0071, 62150, 45291, 26734 ####[facility] [place] [address], [place] Potassium [Moles/Vol] 5.2 mmol/L High 3.5-5.1 [facility] Comment on above: Order Comment: No: D o not add to previous draw Performed By: #### 0 0071, 28907, 91697, 13993 ####[facility] [place] [address], [place] Sodium [Moles/Vol] 131 mmol/L Low 136-145 [facility] Comment on above: Order Comment: No: D o not add to previous draw Performed By: #### 0 0071, 17642, 61731, 49512 ####[facility] Urea nitrogen [Mass/Vol] 27 mg/dL High 7-25 [facility] Comment on above: Order Comment: No: D o not add to previous draw Performed By: #### 0 0071, 47300, 04754, 45437 ####[facility] [facility] CBC COMPLETE BLOOD COUNTon Erythrocyte distribution width (RBC) [Ratio] 14.5 % Normal 11.5-15.0 [facility] Comment on above: Order Comment: No: D o not add to previous draw Performed By: #### 5 0608 ####[facility] [facility] Hematocrit (Bld) [Volume fraction] 23.1 % Low 39.0-50.0 [facility] Comment on above: Order Comment: No: D o not add to previous draw Performed By: #### 5 0608 ####[facility] [facility] Hemoglobin (Bld) [Mass/Vol] 7.4 g/dL Low 13.0-17.0 [facility] Comment on above: Order Comment: No: D o not add to previous draw Performed By: #### 5 0608 ####[facility] [facility] [place] [address], [facility] MCH (RBC) [Entitic mass] 28.9 pg Normal 27.0-33.0 [facility] Comment on above: Order Comment: No: D o not add to previous draw Performed By: #### 5 0608 ####[facility] MCHC (RBC) [Mass/Vol] 32.0 g/dL Normal 32.0-35.0 [facility] Comment on above: Order Comment: No: D o not add to previous draw Performed By: #### 5 0608 ####[facility] [facility] [place] [address], [facility] MCV (RBC) [Entitic vol] 90.2 fL Normal 82.0-98.0 [facility] Comment on above: Order Comment: No: D o not add to previous draw Performed By: #### 5 0608 ####[address] Nucleated RBC/100 WBC (Bld) [Ratio] 0 % Normal 0-0 [facility] Comment on above: Order Comment: No: D o not add to previous draw Performed By: #### 5 0608 ####[place] [address] [address] PLAT CNT 312 10*3/uL Normal 150-400 [facility] Comment on above: Order Comment: No: D o not add to previous draw Performed By: #### 5 0608 ####[address] [place] [address], [facility] RBC (Bld) [#/Vol] 2.56 10*6/uL Low 4.20-5.70 [facility] Comment on above: Order Comment: No: D o not add to previous draw Performed By: #### 5 0608 ####[address] [place] [address], [facility] WBC (Bld) [#/Vol] 10.23 10*3/uL Normal 4.00-10.60 [facility] Comment on above: Order Comment: No: D o not add to previous draw Performed By: #### 5 0608 ####[address] [place] [address], [place] MAGNESIUM BLOODon 05-24-2021 Magnesium [Mass/Vol] 1.8 mg/dL Low 1.9-2.7 [facility] Comment on above: Order Comment: No: D o not add to previous draw Performed By: #### 0 0071, 40912, 12116, 85581 ####[facility] [place] [address], [place] PHOSPHORUS BLOODon Phosphate [Mass/Vol] 5.0 mg/dL Normal 2.5-5.0 [facility] Comment on above: Order Comment: No: D o not add to previous draw Performed By: #### 0 0071, 83001, 29414, 89281 ####[facility] [place] [address], [facility] POC GLUCOSE LABon 05-24-2021 Glucose [Mass/Vol] 156 mg/dL High 70-100 [facility] Comment on above: Performed By: #### 8 5499 ####[facility] [place] [address], [place] Glucose [Mass/Vol] 129 mg/dL High 70-100 [facility] Comment on above: Performed By: #### 8 5499 ####[facility] [place] [address], [place] Glucose [Mass/Vol] 188 mg/dL High 70-100 [facility] Comment on above: Performed By: #### 8 5499 ####[facility] [place] [address], [place] Glucose [Mass/Vol] 141 mg/dL High 70-100 [facility] Comment on above: Performed By: #### 8 5499 ####[facility] [place] [address], [place] RBC'S 1 UNITon 05-24-2021 CROSSMATCH INTERP 1 COMP Normal [facility] Comment on above: Performed By: #### 8 6001 ####[facility] [facility].[address] PRODUCT CODE 1 [id number] Normal [facility] Comment on above: Performed By: #### 8 6001 ####[facility] [facility] [place] [address], [facility] PRODUCT STATUS 1 PT Normal [facility] Comment on above: Result Comment: Resu lt changed by IF on 05/24/2021 11:33. The previous value was XM.Result changed by IF on 05/25/2021 00:30. The previous value was IS. Performed By: #### 8 6001 ####[facility] [facility] [place] [address], [facility] UNIT ABO 1 O Normal [facility] Comment on above: Performed By: #### 8 6001 ####[facility] [facility].[address] UNIT ID 1 [id number] Normal [facility] Comment on above: Performed By: #### 8 6001 ####[facility] [facility] [place] [address], [facility] UNIT RH 1 Positive Normal [facility] Comment on above: Performed By: #### 8 6001 ####[facility] [facility] [place] [address], [facility] TYPE AND SCREENon 05-24-2021 ABO INTERPRETATION O Normal [facility] Comment on above: Performed By: #### 6 2586 ####[facility] [facility] [place] [address], [facility] RH INTERPRETATION Positive Normal [facility] Comment on above: Performed By: #### 6 2586 ####[facility] [facility] [place] [address], [place] VANCOMYCIN TIMEDon VANCOMYCIN TIMED 42.1 mcg/mL Normal [facility] Comment on above: Performed By: #### 0 0071, 18062, 97025, 11807 ####[facility] [facility] BASIC METABOLIC PANELon 09-3 Calcium [Mass/Vol] 8.7 mg/dL Normal 8.6-10.3 [facility] Comment on above: Order Comment: No: D o not add to previous draw Performed By: #### 4 1000, 20057, 69965 ####[facility] [facility] Chloride [Moles/Vol] 97 mmol/L Low 98-107 [facility] Comment on above: Order Comment: No: D o not add to previous draw Performed By: #### 4 1000, 08425, 83586 ####[facility] [facility] CO2 [Moles/Vol] 32 mmol/L High 21-31 [facility] Comment on above: Order Comment: No: D o not add to previous draw Performed By: #### 4 1000, 35251, 18476 ####[facility] [facility].[address] Creatinine [Mass/Vol] 1.31 mg/dL High 0.70-1.30 [facility] Comment on above: Order Comment: No: D o not add to previous draw Performed By: #### 4 1000, 13424, 09538 ####[facility] eGFR- non- 53 ml/min/1.73sq m Abnormal >60 [facility] Comment on above: Order Comment: No: D o not add to previous draw Result Comment: Calc ulation may not be valid for patients over 70 years Performed By: #### 4 1000, 05985, 59189 ####[facility] [place] [address], [facility] GFR/1.73 sq M.predicted among blacks MDRD (S/P/Bld) [Vol rate/Area] mL/min/{1.73_m2} Normal >60 [facility] Comment on above: Order Comment: No: D o not add to previous draw Result Comment: Calc ulation may not be valid for patients over 70 years Performed By: #### 4 1000, 94275, 15695 ####[facility] [place] [address], [facility] Glucose [Mass/Vol] 105 mg/dL High 70-100 [facility] Comment on above: Order Comment: No: D o not add to previous draw Performed By: #### 4 999, 09486, 02161 ####[facility] [place] [address], [facility] Potassium [Moles/Vol] 4.0 mmol/L Normal 3.5-5.1 [facility] Comment on above: Order Comment: No: D o not add to previous draw Performed By: #### 4 999, 17809, 50617 ####[facility] [place] [address], [facility] Sodium [Moles/Vol] 133 mmol/L Low 136-145 [facility] Comment on above: Order Comment: No: D o not add to previous draw Performed By: #### 4 999, 95634, 11552 ####[facility] [place] [address], [place] Urea nitrogen [Mass/Vol] 24 mg/dL Normal 7-25 [facility] Comment on above: Order Comment: No: D o not add to previous draw Performed By: #### 4 1000, 83399, 04234 ####[facility] [place] [address], [place] CBC COMPLETE BLOOD COUNTon 0 05-23-2021 Erythrocyte distribution width (RBC) [Ratio] 14.3 % Normal 11.5-15.0 [facility] Comment on above: Order Comment: No: D o not add to previous draw Performed By: #### 5 0608 ####[facility] Hematocrit (Bld) [Volume fraction] 29.4 % Low 39.0-50.0 [facility] Comment on above: Order Comment: No: D o not add to previous draw Performed By: #### 5 0608 ####[facility] Hemoglobin (Bld) [Mass/Vol] 9.4 g/dL Low 13.0-17.0 [facility] Comment on above: Order Comment: No: D o not add to previous draw Performed By: #### 5 0608 ####[facility] MCH (RBC) [Entitic mass] 28.5 pg Normal 27.0-33.0 [facility] Comment on above: Order Comment: No: D o not add to previous draw Performed By: #### 5 0608 ####[facility] MCHC (RBC) [Mass/Vol] 32.0 g/dL Normal 32.0-35.0 [facility] Comment on above: Order Comment: No: D o not add to previous draw Performed By: #### 5 0608 ####[facility] [facility] [place] [address], [facility] MCV (RBC) [Entitic vol] 89.1 fL Normal 82.0-98.0 [facility] Comment on above: Order Comment: No: D o not add to previous draw Performed By: #### 5 0608 ####[facility] [place] [address], [facility] Nucleated RBC/100 WBC (Bld) [Ratio] 0 % Normal 0-0 [facility] Comment on above: Order Comment: No: D o not add to previous draw Performed By: #### 5 0608 ####[facility] [place] [address], [facility] PLAT CNT 342 10*3/uL Normal 150-400 [facility] Comment on above: Order Comment: No: D o not add to previous draw Performed By: #### 5 0608 ####[facility] [facility] [place] [address], [facility] RBC (Bld) [#/Vol] 3.30 10*6/uL Low 4.20-5.70 [facility] Comment on above: Order Comment: No: D o not add to previous draw Performed By: #### 5 0608 ####[facility] [place] [address], [facility] WBC (Bld) [#/Vol] 7.22 10*3/uL Normal 4.00-10.60 [facility] Comment on above: Order Comment: No: D o not add to previous draw Performed By: #### 5 0608 ####[facility] [facility] [place] [address], [facility] MAGNESIUM BLOODon 05-23-2021 Magnesium [Mass/Vol] 1.9 mg/dL Normal 1.9-2.7 [facility] Comment on above: Order Comment: No: D o not add to previous draw Performed By: #### 4 999, 07183, 79589 ####[facility] [place] [address], [facility] PHOSPHORUS BLOODon Phosphate [Mass/Vol] 3.4 mg/dL Normal 2.5-5.0 [facility] Comment on above: Order Comment: No: D o not add to previous draw Performed By: #### 4 999, 46291, 69565 ####[facility] [place] [address], [place] POC GLUCOSE LABon 05-23-2021 Glucose [Mass/Vol] 141 mg/dL High 70-100 [facility] Comment on above: Performed By: #### 8 5499 ####[facility] [place] [address], [place] Glucose [Mass/Vol] 147 mg/dL High 70-100 [facility] Comment on above: Performed By: #### 8 5499 ####[facility] [place] [address], [place] Glucose [Mass/Vol] 138 mg/dL High 70-100 [facility] Comment on above: Performed By: #### 8 5499 ####[facility] [place] [address], [place] Glucose [Mass/Vol] 112 mg/dL High 70-100 [facility] Comment on above: Performed By: #### 8 5499 ####[facility] [place] [address], [place] Glucose [Mass/Vol] 121 mg/dL High 70-100 [facility] Comment on above: Performed By: #### 8 5499 ####[facility] [place] [address], [facility] POC SARS COV2 ANTIGEN NEGATI VEon 05-23-2021 POC SARS COV2 ANTIGEN NEG Negative Normal NEGATIVE [facility] Comment on above: Result Comment: [...] forthe qualitative detection of nucleocapsid protein antigen [id number] in direct nasal swabs from individuals within [...] Certificate ofAccreditation. Performed By: #### 3 1977 ####[facility] [facility].[address] PORTABLE CHEST 1 VIEWon 04-26 PORTABLE CHEST 1 VIEW Normal [facility] Comment on above: Order Comment: evalu ate for Atelectasis VANCOMYCIN RANDOMon 05-23-20 VANCOMYCIN RAND 19.6 mcg/mL Normal [facility] Comment on above: Order Comment: No: D o not add to previous draw Performed By: #### 9 4980 ####[facility] [facility].[address] BASIC METABOLIC PANELon 04-25 Calcium [Mass/Vol] 8.6 mg/dL Normal 8.6-10.3 [facility] Comment on above: Order Comment: No: D o not add to previous draw Performed By: #### 0 0071, 91118, 72945 ####[facility] [place] [address], [facility] Chloride [Moles/Vol] 98 mmol/L Normal 98-107 [facility] Comment on above: Order Comment: No: D o not add to previous draw Performed By: #### 0 0071, 17496, 47627 ####[facility] [place] [address], [facility] CO2 [Moles/Vol] 33 mmol/L High 21-31 [facility] Comment on above: Order Comment: No: D o not add to previous draw Performed By: #### 0 0071, 35781, 19076 ####[facility] [place] [address], [facility] Creatinine [Mass/Vol] 1.21 mg/dL Normal 0.70-1.30 [facility] Comment on above: Order Comment: No: D o not add to previous draw Performed By: #### 0 0071, 74050, 02378 ####[facility] [place] [address], [facility] eGFR- non- 58 ml/min/1.73sq m Abnormal >60 [facility] Comment on above: Order Comment: No: D o not add to previous draw Result Comment: Calc ulation may not be valid for patients over 70 years Performed By: #### 0 0071, 15011, 49644 ####[facility] [place] [address], [facility] GFR/1.73 sq M.predicted among blacks MDRD (S/P/Bld) [Vol rate/Area] mL/min/{1.73_m2} Normal >60 [facility] Comment on above: Order Comment: No: D o not add to previous draw Result Comment: Calc ulation may not be valid for patients over 70 years Performed By: #### 0 0071, 85214, 51517 ####[facility] [place] [address], [facility] Glucose [Mass/Vol] 115 mg/dL High 70-100 [facility] Comment on above: Order Comment: No: D o not add to previous draw Performed By: #### 0 0071, 25827, 87574 ####[facility] [place] [address], [place] Potassium [Moles/Vol] 3.9 mmol/L Normal 3.5-5.1 [facility] Comment on above: Order Comment: No: D o not add to previous draw Performed By: #### 0 0071, 58860, 58230 ####[facility] [facility].[address] Sodium [Moles/Vol] 135 mmol/L Low 136-145 [facility] Comment on above: Order Comment: No: D o not add to previous draw Performed By: #### 0 0071, 06457, 14317 ####[facility] [facility].[address] Urea nitrogen [Mass/Vol] 22 mg/dL Normal 7-25 [facility] Comment on above: Order Comment: No: D o not add to previous draw Performed By: #### 0 70, 53447, 83856 ####[facility] CBC COMPLETE BLOOD COUNTon 0 05-22-2021 Erythrocyte distribution width (RBC) [Ratio] 14.3 % Normal 11.5-15.0 [facility] Comment on above: Order Comment: No: D o not add to previous draw Performed By: #### 5 0608 ####[address] Hematocrit (Bld) [Volume fraction] 24.7 % Low 39.0-50.0 [facility] Comment on above: Order Comment: No: D o not add to previous draw Performed By: #### 5 0608 ####[facility] [facility].[address] Hemoglobin (Bld) [Mass/Vol] 7.6 g/dL Low 13.0-17.0 [facility] Comment on above: Order Comment: No: D o not add to previous draw Performed By: #### 5 0608 ####[address] [place] [address], [facility] MCH (RBC) [Entitic mass] 28.3 pg Normal 27.0-33.0 [facility] Comment on above: Order Comment: No: D o not add to previous draw Performed By: #### 5 0608 ####[facility] MCHC (RBC) [Mass/Vol] 30.8 g/dL Low 32.0-35.0 [facility] Comment on above: Order Comment: No: D o not add to previous draw Performed By: #### 5 0608 ####[facility] MCV (RBC) [Entitic vol] 91.8 fL Normal 82.0-98.0 [facility] Comment on above: Order Comment: No: D o not add to previous draw Performed By: #### 5 0608 ####[place] [address] [address] Nucleated RBC/100 WBC (Bld) [Ratio] 0 % Normal 0-0 [facility] Comment on above: Order Comment: No: D o not add to previous draw Performed By: #### 5 0608 ####[facility] PLAT CNT 313 10*3/uL Normal 150-400 [facility] Comment on above: Order Comment: No: D o not add to previous draw Performed By: #### 5 0608 ####[facility] [place] [address] RBC (Bld) [#/Vol] 2.69 10*6/uL Low 4.20-5.70 [facility] Comment on above: Order Comment: No: D o not add to previous draw Performed By: #### 5 0608 ####[facility] [place] [address], [facility] WBC (Bld) [#/Vol] 7.75 10*3/uL Normal 4.00-10.60 [facility] Comment on above: Order Comment: No: D o not add to previous draw Performed By: #### 5 0608 ####[facility] [facility] [place] [address], [facility] MAGNESIUM BLOODon 05-22-2021 Magnesium [Mass/Vol] 1.9 mg/dL Normal 1.9-2.7 [facility] Comment on above: Order Comment: No: D o not add to previous draw Performed By: #### 0 0071, 79150, 22871 ####[facility] [facility].[address] Operative Reporton Operative Report Normal [facility] POC GLUCOSE LABon 05-22-2021 Glucose [Mass/Vol] 126 mg/dL High 70-100 [facility] Comment on above: Performed By: #### 8 5499 ####[facility] Glucose [Mass/Vol] 136 mg/dL High 70-100 [facility] [facility] Comment on above: Performed By: #### 8 5499 ####[facility] [facility] [place] [address], [facility] Glucose [Mass/Vol] 156 mg/dL High 70-100 [facility] Comment on above: Performed By: #### 8 5499 ####[facility] [facility].[address] PORTABLE CHEST 1 VIEWon 04-25 PORTABLE CHEST 1 VIEW Normal [facility] Comment on above: Order Comment: Evalu ate for Atelectasis, common RBC'S 1 UNITon 05-22-2021 CROSSMATCH INTERP 1 COMP Normal [facility] Comment on above: Performed By: #### 8 6001 ####[facility] [facility].[address] PRODUCT CODE 1 E0336 Normal [facility] Comment on above: Performed By: #### 8 6001 ####[facility] [place] [address], [facility] PRODUCT STATUS 1 PT Normal [facility] Comment on above: Result Comment: Resu lt changed by IF on 05/22/2021 13:33. The previous value was XM.Result changed by IF on 05/23/2021 00:30. The previous value was IS. Performed By: #### 8 6001 ####[facility] [place] [address], [facility] UNIT ABO 1 O Normal [facility] Comment on above: Performed By: #### 8 6001 ####[facility] [place] [address], [facility] UNIT ID 1 [id number] Normal [facility] Comment on above: Performed By: #### 8 6001 ####[facility] [place] [address], [facility] UNIT RH 1 Positive Normal [facility] Comment on above: Performed By: #### 8 6001 ####[facility] [place] [address], [place] RBC'S 3 UNITSon 05-22-2021 CROSSMATCH INTERP 1 COMP Normal [facility] Comment on above: Order Comment: Hemog lobin < 9 gm/dl with known cardiac or cerebrovascular disease Performed By: #### 8 6003 ####[facility] [place] [address], [facility] CROSSMATCH INTERP 2 COMP Normal [facility] Comment on above: Order Comment: Hemog lobin < 9 gm/dl with known cardiac or cerebrovascular disease Performed By: #### 8 6003 ####[facility] [place] [address], [place] CROSSMATCH INTERP 3 COMP Normal [facility] Comment on above: Order Comment: Hemog lobin < 9 gm/dl with known cardiac or cerebrovascular disease Performed By: #### 8 6003 ####[facility] PRODUCT CODE 1 E0336 Normal [facility] Comment on above: Order Comment: Hemog lobin < 9 gm/dl with known cardiac or cerebrovascular disease Performed By: #### 8 6003 ####[facility] PRODUCT CODE 2 E0685 Normal [facility] Comment on above: Order Comment: Hemog lobin < 9 gm/dl with known cardiac or cerebrovascular disease Performed By: #### 8 6003 ####[facility] PRODUCT CODE 3 E0336 Normal [facility] Comment on above: Order Comment: Hemog lobin < 9 gm/dl with known cardiac or cerebrovascular disease Performed By: #### 8 6003 ####[facility] PRODUCT STATUS 1 PT Normal [facility] Comment on above: Order Comment: Hemog lobin < 9 gm/dl with known cardiac or cerebrovascular disease Result Comment: Resu lt changed by IF on 05/22/2021 17:51. The previous value was XM.Result changed by IF on 05/23/2021 00:30. The previous value was IS. Performed By: #### 8 6003 ####[facility] [place] [address], [facility] PRODUCT STATUS 2 RE Normal [facility] Comment on above: Order Comment: Hemog lobin < 9 gm/dl with known cardiac or cerebrovascular disease Result Comment: Resu lt changed by IF on 05/24/2021 07:35. The previous value was XM. Performed By: #### 8 6003 ####[facility] [place] [address], [facility] PRODUCT STATUS 3 RE Normal [facility] Comment on above: Order Comment: Hemog lobin < 9 gm/dl with known cardiac or cerebrovascular disease Result Comment: Resu lt changed by IF on 05/24/2021 07:35. The previous value was XM. Performed By: #### 8 6003 ####[facility] UNIT ABO 1 O Normal [facility] Comment on above: Order Comment: Hemog lobin < 9 gm/dl with known cardiac or cerebrovascular disease Performed By: #### 8 6003 ####[facility] UNIT ABO 2 O Normal [facility] Comment on above: Order Comment: Hemog lobin < 9 gm/dl with known cardiac or cerebrovascular disease Performed By: #### 8 6003 ####[facility] UNIT ABO 3 O Normal [facility] Comment on above: Order Comment: Hemog lobin < 9 gm/dl with known cardiac or cerebrovascular disease Performed By: #### 8 6003 ####[facility] UNIT ID 1 [id number] Normal [facility] Comment on above: Order Comment: Hemog lobin < 9 gm/dl with known cardiac or cerebrovascular disease Performed By: #### 8 6003 ####[facility] UNIT ID 2 [id number] Normal [facility] Comment on above: Order Comment: Hemog lobin < 9 gm/dl with known cardiac or cerebrovascular disease Performed By: #### 8 6003 ####[facility] UNIT ID 3 [id number] Normal [facility] Comment on above: Order Comment: Hemog lobin < 9 gm/dl with known cardiac or cerebrovascular disease Performed By: #### 8 6003 ####[facility] UNIT RH 1 Negative Normal [facility] Comment on above: Order Comment: Hemog lobin < 9 gm/dl with known cardiac or cerebrovascular disease Performed By: #### 8 6003 ####[facility] UNIT RH 2 Positive Normal [facility] Comment on above: Order Comment: Hemog lobin < 9 gm/dl with known cardiac or cerebrovascular disease Performed By: #### 8 6003 ####[facility] UNIT RH 3 Positive Normal [facility] Comment on above: Order Comment: Hemog lobin < 9 gm/dl with known cardiac or cerebrovascular disease Performed By: #### 8 6003 ####[facility] [facility] VANCOMYCIN TIMEDon VANCOMYCIN TIMED 19.6 mcg/mL Normal [facility] Comment on above: Performed By: #### 0 0071, 31974, 21494 ####[facility] [facility] BASIC METABOLIC PANELon 04-25 Calcium [Mass/Vol] 8.5 mg/dL Low 8.6-10.3 [facility] Comment on above: Order Comment: No: D o not add to previous draw Performed By: #### 1 0070, 35408, 78819 ####[facility] Chloride [Moles/Vol] 96 mmol/L Low 98-107 [facility] Comment on above: Order Comment: No: D o not add to previous draw Performed By: #### 1 0070, 47330, 01555 ####[facility] [place] [address], [facility] CO2 [Moles/Vol] 37 mmol/L High 21-31 [facility] Comment on above: Order Comment: No: D o not add to previous draw Performed By: #### 1 0070, 25428, 30081 ####[facility] [place] [address], [facility] Creatinine [Mass/Vol] 0.92 mg/dL Normal 0.70-1.30 [facility] Comment on above: Order Comment: No: D o not add to previous draw Performed By: #### 1 0070, 86139, 58773 ####[facility] [place] [address], [facility] GFR/1.73 sq M.predicted among blacks MDRD (S/P/Bld) [Vol rate/Area] mL/min/{1.73_m2} Normal >60 [facility] Comment on above: Order Comment: No: D o not add to previous draw Result Comment: Calc ulation may not be valid for patients over 70 years Performed By: #### 1 0070, 16806, 04856 ####[facility] [place] [address], [facility] GFR/1.73 sq M.predicted among non-blacks MDRD (S/P/Bld) [Vol rate/Area] mL/min/{1.73_m2} Normal >60 [facility] Comment on above: Order Comment: No: D o not add to previous draw Result Comment: Calc ulation may not be valid for patients over 70 years Performed By: #### 1 0070, 78410, 27117 ####[facility] [place] [address], [place] Glucose [Mass/Vol] 117 mg/dL High 70-100 [facility] Comment on above: Order Comment: No: D o not add to previous draw Performed By: #### 1 0070, 15859, 30025 ####[facility] [place] [address], [facility] Potassium [Moles/Vol] 3.9 mmol/L Normal 3.5-5.1 [facility] Comment on above: Order Comment: No: D o not add to previous draw Performed By: #### 1 0, 31634, 53215 ####[facility] [place] [address], [facility] Sodium [Moles/Vol] 134 mmol/L Low 136-145 [facility] Comment on above: Order Comment: No: D o not add to previous draw Performed By: #### 1 0, 40893, 27852 ####[facility] [facility] Urea nitrogen [Mass/Vol] 17 mg/dL Normal 7-25 [facility] Comment on above: Order Comment: No: D o not add to previous draw Performed By: #### 1 0, 03542, 61985 ####[facility] [facility].[address] CBC COMPLETE BLOOD COUNTon 0 05-21-2021 Erythrocyte distribution width (RBC) [Ratio] 14.3 % Normal 11.5-15.0 [facility] Comment on above: Order Comment: No: D o not add to previous draw Performed By: #### 5 0608 ####[facility] [place] [address], [facility] Hematocrit (Bld) [Volume fraction] 27.2 % Low 39.0-50.0 [facility] Comment on above: Order Comment: No: D o not add to previous draw Performed By: #### 5 0608 ####[facility] [place] [address], [facility] Hemoglobin (Bld) [Mass/Vol] 8.1 g/dL Low 13.0-17.0 [facility] Comment on above: Order Comment: No: D o not add to previous draw Performed By: #### 5 0608 ####[facility] MCH (RBC) [Entitic mass] 27.6 pg Normal 27.0-33.0 [facility] Comment on above: Order Comment: No: D o not add to previous draw Performed By: #### 5 0608 ####[facility] MCHC (RBC) [Mass/Vol] 29.8 g/dL Low 32.0-35.0 [facility] Comment on above: Order Comment: No: D o not add to previous draw Performed By: #### 5 0608 ####[address] MCV (RBC) [Entitic vol] 92.8 fL Normal 82.0-98.0 [facility] Comment on above: Order Comment: No: D o not add to previous draw Performed By: #### 5 0608 ####[place] [address] Nucleated RBC/100 WBC (Bld) [Ratio] 0 % Normal 0-0 [facility] Comment on above: Order Comment: No: D o not add to previous draw Performed By: #### 5 0608 ####[facility] [place] [address] PLAT CNT 329 10*3/uL Normal 150-400 [facility] Comment on above: Order Comment: No: D o not add to previous draw Performed By: #### 5 0608 ####[facility] [place] [address] RBC (Bld) [#/Vol] 2.93 10*6/uL Low 4.20-5.70 [facility] Comment on above: Order Comment: No: D o not add to previous draw Performed By: #### 5 0608 ####[facility] [place] [address], [facility] WBC (Bld) [#/Vol] 6.21 10*3/uL Normal 4.00-10.60 [facility] Comment on above: Order Comment: No: D o not add to previous draw Performed By: #### 5 0608 ####[facility] [place] [address], [facility] MAGNESIUM BLOODon 05-21-2021 Magnesium [Mass/Vol] 2.0 mg/dL Normal 1.9-2.7 [facility] Comment on above: Order Comment: No: D o not add to previous draw Performed By: #### 1 0070, 93556, 22847 ####[facility] [facility].[address] Operative Reporton 1 Operative Report Normal [facility] PHOSPHORUS BLOODon 1 Phosphate [Mass/Vol] 4.0 mg/dL Normal 2.5-5.0 [facility] Comment on above: Order Comment: No: D o not add to previous draw Performed By: #### 1 0070, 61808, 54124 ####[facility] [place] [address], [facility] POC GLUCOSE LABon 05-21-2021 Glucose [Mass/Vol] 143 mg/dL High 70-100 [facility] Comment on above: Performed By: #### 8 5499 ####[facility] [place] [address], [facility] Glucose [Mass/Vol] 123 mg/dL High 70-100 [facility] Comment on above: Performed By: #### 8 5499 ####[facility] [place] [address], [facility] Glucose [Mass/Vol] 128 mg/dL High 70-100 [facility] Comment on above: Performed By: #### 8 5499 ####[facility] [place] [address], [facility] Glucose [Mass/Vol] 158 mg/dL High 70-100 [facility] Comment on above: Performed By: #### 8 5499 ####[facility] [facility].[address] PORTABLE CHEST 1 VIEWon 04-25 PORTABLE CHEST 1 VIEW Normal [facility] Comment on above: Order Comment: evalu ate for Atelectasis PROTHROMBIN TIMEon INR Coag (PPP) [Relative time] 1.12 {INR} Normal 0.91-1.16 [facility] Comment on above: [...] OF ACTION, CLINICALEFFECTIVENESS, AND OPTIMAL THERAPEUTIC RANGE. [id number]. Performed By: #### 5 6101 ####[facility] [facility] [place] [address], [facility] PT Coag (PPP) [Time] 14.4 s Normal 12.3-14.8 [facility] Comment on above: Order Comment: No: D o not add to previous draw Result Comment: ALL RESULTS MUST BE INTERPRETED WITH RESPECT TO BLOOD DRAWING ARTIFACTOR DILUTION ERROR OF ANTICOAGULANT AT THE TIME OF SAMPLING. Performed By: #### 5 6101 ####[facility] BASIC METABOLIC PANELon - Calcium [Mass/Vol] 8.8 mg/dL Normal 8.6-10.3 [facility] Comment on above: Order Comment: No: D o not add to previous draw Performed By: #### 1 0070, 51441, 57567 ####[facility] [place] [address], [facility] Chloride [Moles/Vol] 96 mmol/L Low 98-107 [facility] Comment on above: Order Comment: No: D o not add to previous draw Performed By: #### 1 0, 96564, 82733 ####[facility] [place] [address], [facility] CO2 [Moles/Vol] 33 mmol/L High 21-31 [facility] Comment on above: Order Comment: No: D o not add to previous draw Performed By: #### 1 0, 47427, 79914 ####[facility] [place] [address], [facility] Creatinine [Mass/Vol] 0.90 mg/dL Normal 0.70-1.30 [facility] Comment on above: Order Comment: No: D o not add to previous draw Performed By: #### 1 0070, 40602, 43147 ####[facility] [place] [address], [facility] GFR/1.73 sq M.predicted among blacks MDRD (S/P/Bld) [Vol rate/Area] mL/min/{1.73_m2} Normal >60 [facility] Comment on above: Order Comment: No: D o not add to previous draw Result Comment: Calc ulation may not be valid for patients over 70 years Performed By: #### 1 0070, 07998, 94114 ####[facility] [place] [address], [facility] GFR/1.73 sq M.predicted among non-blacks MDRD (S/P/Bld) [Vol rate/Area] mL/min/{1.73_m2} Normal >60 [facility] Comment on above: Order Comment: No: D o not add to previous draw Result Comment: Calc ulation may not be valid for patients over 70 years Performed By: #### 1 0070, 21298, 99449 ####[facility] [place] [address], [facility] Glucose [Mass/Vol] 113 mg/dL High 70-100 [facility] Comment on above: Order Comment: No: D o not add to previous draw Performed By: #### 1 0070, 61632, 10124 ####[facility] [place] [address], [facility] Potassium [Moles/Vol] 3.6 mmol/L Normal 3.5-5.1 [facility] Comment on above: Order Comment: No: D o not add to previous draw Performed By: #### 1 0, 96195, 39172 ####[facility] [place] [address], [place] Sodium [Moles/Vol] 135 mmol/L Low 136-145 [facility] Comment on above: Order Comment: No: D o not add to previous draw Performed By: #### 1 0070, 65362, 74562 ####[facility] [place] [address], [place] Urea nitrogen [Mass/Vol] 15 mg/dL Normal 7-25 [facility] Comment on above: Order Comment: No: D o not add to previous draw Performed By: #### 1 0070, 69799, 53071 ####[facility] CBC COMPLETE BLOOD COUNTon 05-20-2021 Erythrocyte distribution width (RBC) [Ratio] 14.1 % Normal 11.5-15.0 [facility] Comment on above: Order Comment: No: D o not add to previous draw Performed By: #### 5 0608 ####[facility] [place] [address] Hematocrit (Bld) [Volume fraction] 28.9 % Low 39.0-50.0 [facility] Comment on above: Order Comment: No: D o not add to previous draw Performed By: #### 5 0608 ####[address] Hemoglobin (Bld) [Mass/Vol] 8.9 g/dL Low 13.0-17.0 [facility] Comment on above: Order Comment: No: D o not add to previous draw Performed By: #### 5 0608 ####[address] MCH (RBC) [Entitic mass] 28.3 pg Normal 27.0-33.0 [facility] Comment on above: Order Comment: No: D o not add to previous draw Performed By: #### 5 0608 ####[facility] [place] [address] MCHC (RBC) [Mass/Vol] 30.8 g/dL Low 32.0-35.0 [facility] Comment on above: Order Comment: No: D o not add to previous draw Performed By: #### 5 0608 ####[address] MCV (RBC) [Entitic vol] 92.0 fL Normal 82.0-98.0 Lisa hanson [facility] Comment on above: Order Comment: No: D o not add to previous draw Performed By: #### 5 0608 ####[facility] [facility] [place] [address], [facility] Nucleated RBC/100 WBC (Bld) [Ratio] 0 % Normal 0-0 [facility] Comment on above: Order Comment: No: D o not add to previous draw Performed By: #### 5 0608 ####[facility] [facility] [place] [address], [facility] PLAT CNT 339 10*3/uL Normal 150-400 [facility] Comment on above: Order Comment: No: D o not add to previous draw Performed By: #### 5 0608 ####[facility] [facility] [place] [address], [facility] RBC (Bld) [#/Vol] 3.14 10*6/uL Low 4.20-5.70 [facility] Comment on above: Order Comment: No: D o not add to previous draw Performed By: #### 5 0608 ####[facility] [facility] [place] [address], [facility] WBC (Bld) [#/Vol] 6.69 10*3/uL Normal 4.00-10.60 [facility] Comment on above: Order Comment: No: D o not add to previous draw Performed By: #### 5 0608 ####[facility] [facility] [place] [address], [facility] Erythrocyte distribution width (RBC) [Ratio] 14.1 % Normal 11.5-15.0 [facility] Comment on above: Order Comment: No: D o not add to previous draw Performed By: #### 5 0608 ####[facility] [facility] [place] [address], [facility] Hematocrit (Bld) [Volume fraction] 29.5 % Low 39.0-50.0 [facility] Comment on above: Order Comment: No: D o not add to previous draw Performed By: #### 5 0608 ####[facility] Hemoglobin (Bld) [Mass/Vol] 9.3 g/dL Low 13.0-17.0 [facility] Comment on above: Order Comment: No: D o not add to previous draw Performed By: #### 5 0608 ####[facility] MCH (RBC) [Entitic mass] 28.2 pg Normal 27.0-33.0 [facility] Comment on above: Order Comment: No: D o not add to previous draw Performed By: #### 5 0608 ####[facility] MCHC (RBC) [Mass/Vol] 31.5 g/dL Low 32.0-35.0 [facility] Comment on above: Order Comment: No: D o not add to previous draw Performed By: #### 5 0608 ####[place] [address] MCV (RBC) [Entitic vol] 89.4 fL Normal 82.0-98.0 [facility] Comment on above: Order Comment: No: D o not add to previous draw Performed By: #### 5 0608 ####[facility] Nucleated RBC/100 WBC (Bld) [Ratio] 0 % Normal 0-0 [facility] Comment on above: Order Comment: No: D o not add to previous draw Performed By: #### 5 0608 ####[facility] [place] [address], [facility] PLAT CNT 338 10*3/uL Normal 150-400 [facility] Comment on above: Order Comment: No: D o not add to previous draw Performed By: #### 5 0608 ####[facility] [place] [address], [facility] RBC (Bld) [#/Vol] 3.30 10*6/uL Low 4.20-5.70 [facility] Comment on above: Order Comment: No: D o not add to previous draw Performed By: #### 5 0608 ####[facility] [place] [address], [facility] WBC (Bld) [#/Vol] 6.66 10*3/uL Normal 4.00-10.60 [facility] Comment on above: Order Comment: No: D o not add to previous draw Performed By: #### 5 0608 ####[facility] [place] [address], [facility] MAGNESIUM BLOODon 05-20-2021 Magnesium [Mass/Vol] 1.9 mg/dL Normal 1.9-2.7 [facility] Comment on above: Order Comment: No: D o not add to previous draw Performed By: #### 1 0070, 27523, 98837 ####[facility] [place] [address], [facility] PHOSPHORUS BLOODon Phosphate [Mass/Vol] 3.7 mg/dL Normal 2.5-5.0 [facility] Comment on above: Order Comment: No: D o not add to previous draw Performed By: #### 1 0070, 07257, 58350 ####[facility] [place] [address], [facility] POC GLUCOSE LABon 05-20-2021 Glucose [Mass/Vol] 130 mg/dL High 70-100 [facility] Comment on above: Performed By: #### 8 5499 ####[facility] [place] [address], [place] Glucose [Mass/Vol] 119 mg/dL High 70-100 [facility] Comment on above: Performed By: #### 8 5499 ####[facility] [place] [address], [facility] Glucose [Mass/Vol] 118 mg/dL High 70-100 [facility] Comment on above: Performed By: #### 8 5499 ####[facility] [facility] [place] [address], [facility] Glucose [Mass/Vol] 118 mg/dL High 70-100 [facility] Comment on above: Performed By: #### 8 5499 ####[facility] [facility] [place] [address], [facility] Glucose [Mass/Vol] 119 mg/dL High 70-100 [facility] Comment on above: Performed By: #### 8 5499 ####[facility] PROTHROMBIN TIMEon 1 INR Coag (PPP) [Relative time] 1.09 {INR} Normal 0.91-1.16 [facility] Comment on above: Order Comment: [...] OF ACTION, CLINICALEFFECTIVENESS, AND OPTIMAL THERAPEUTIC RANGE. [id number]. Performed By: #### 5 6101 ####[facility] PT Coag (PPP) [Time] 14.1 s Normal 12.3-14.8 [facility] Comment on above: Order Comment: No: D o not add to previous draw Result Comment: ALL RESULTS MUST BE INTERPRETED WITH RESPECT TO BLOOD DRAWING ARTIFACTOR DILUTION ERROR OF ANTICOAGULANT AT THE TIME OF SAMPLING. Performed By: #### 5 6101 ####[facility] TYPE AND SCREENon 05-20-2021 ABO INTERPRETATION O Normal [facility] Comment on above: Performed By: #### 6 2586 ####[facility] RH INTERPRETATION Positive Normal [facility] Comment on above: Performed By: #### 6 2586 ####[facility]3000 [facility].[address] *MRSA/MSSA DNA NASALon 05-19 *MRSA/MSSA DNA NASAL Clinical Report: (D ) Specimen: NASAL SWAB Collected: 05/19/2021 10:27 Status: Final Last Updated: 05/19/2021 15:02 MSSA DNA (Final) Negative MRSA DNA (Final) Negative Normal [facility] Comment on above: Performed By: #### 3 1595 ####[facility]3000 [facility].[address] CBC W/DIFFon 05-19-2021 ABS IMM GRANS 0.0 10*3/uL Normal 0.0-0.2 [facility] Comment on above: Order Comment: No: D o not add to previous draw Performed By: #### 5 0103 ####[facility] [facility] [place] [address], [facility] ABS NEUTROPHILS 4.3 10*3/uL Normal 1.6-7.6 [facility] Comment on above: Order Comment: No: D o not add to previous draw Performed By: #### 5 3 ####[facility] [place] [address], [facility] Basophils (Bld) [#/Vol] 0.0 10*3/uL Normal 0.0-0.2 [facility] Comment on above: Order Comment: No: D o not add to previous draw Performed By: #### 5 3 ####[facility] [facility] [place] [address], [facility] Basophils/100 WBC (Bld) 0.5 % Normal 0.0-1.0 [facility] Comment on above: Order Comment: No: D o not add to previous draw Performed By: #### 5 3 ####[facility] [facility] [place] [address], [facility] Eosinophils (Bld) [#/Vol] 0.2 10*3/uL Normal 0.0-0.5 [facility] Comment on above: Order Comment: No: D o not add to previous draw Performed By: #### 102 ####[facility] [facility] [place] [address], [facility] Eosinophils/100 WBC (Bld) 3.1 % Normal 0.0-6.0 [facility] Comment on above: Order Comment: No: D o not add to previous draw Performed By: #### 5 3 ####[facility] [facility] [place] [address], [facility] Erythrocyte distribution width (RBC) [Ratio] 14.2 % Normal 11.5-15.0 [facility] Comment on above: Order Comment: No: D o not add to previous draw Performed By: #### 5 3 ####[facility] Hematocrit (Bld) [Volume fraction] 29.0 % Low 39.0-50.0 [facility] Comment on above: Order Comment: No: D o not add to previous draw Performed By: #### 5 3 ####[facility] Hemoglobin (Bld) [Mass/Vol] 9.2 g/dL Low 13.0-17.0 [facility] Comment on above: Order Comment: No: D o not add to previous draw Performed By: #### 5 0103 ####[facility] IMMATURE GRANS 0.5 % Normal 0.0-1.0 [facility] Comment on above: Order Comment: No: D o not add to previous draw Performed By: #### 5 3 ####[facility] Lymphocytes (Bld) [#/Vol] 1.0 10*3/uL Low 1.2-4.0 [facility] Comment on above: Order Comment: No: D o not add to previous draw Performed By: #### 5 3 ####[facility] Lymphocytes/100 WBC (Bld) 15.9 % Low 20.0-45.0 [facility] Comment on above: Order Comment: No: D o not add to previous draw Performed By: #### 5 0103 ####[facility] MCH (RBC) [Entitic mass] 28.5 pg Normal 27.0-33.0 [facility] Comment on above: Order Comment: No: D o not add to previous draw Performed By: #### 5 0103 ####[facility] MCHC (RBC) [Mass/Vol] 31.7 g/dL Low 32.0-35.0 [facility] Comment on above: Order Comment: No: D o not add to previous draw Performed By: #### 5 0103 ####[facility] MCV (RBC) [Entitic vol] 89.8 fL Normal 82.0-98.0 [facility] Comment on above: Order Comment: No: D o not add to previous draw Performed By: #### 5 0103 ####[facility] Monocytes (Bld) [#/Vol] 0.6 10*3/uL Normal 0.1-1.0 [facility] Comment on above: Order Comment: No: D o not add to previous draw Performed By: #### 5 0103 ####[facility] MONOS 10.2 % Normal 5.0-12.0 [facility] Comment on above: Order Comment: No: D o not add to previous draw Performed By: #### 5 0103 ####[facility] Neutrophils/100 WBC (Bld) 69.8 % Normal 40.0-72.0 [facility] Comment on above: Order Comment: No: D o not add to previous draw Performed By: #### 5 0103 ####[facility] Nucleated RBC/100 WBC (Bld) [Ratio] 0 % Normal 0-0 [facility] Comment on above: Order Comment: No: D o not add to previous draw Performed By: #### 5 0103 ####[facility] [place] [address], [facility] PLAT CNT 294 10*3/uL Normal 150-400 [facility] Comment on above: Order Comment: No: D o not add to previous draw Performed By: #### 5 0103 ####[facility] [place] [address], [facility] RBC (Bld) [#/Vol] 3.23 10*6/uL Low 4.20-5.70 [facility] Comment on above: Order Comment: No: D o not add to previous draw Performed By: #### 5 0103 ####[facility] [place] [address], [facility] WBC (Bld) [#/Vol] 6.09 10*3/uL Normal 4.00-10.60 [facility] Comment on above: Order Comment: No: D o not add to previous draw Performed By: #### 5 0103 ####[facility] [facility].[address] COMP METABOLIC PANELon 05-19 Albumin [Mass/Vol] 2.8 g/dL Low 3.5-5.7 [facility] Comment on above: Order Comment: No: D o not add to previous draw Performed By: #### 4 1000, 85953, 82963 ####[facility] [facility] ALKALINE PHOSPH 59 IU/L Normal 34-104 [facility] Comment on above: Order Comment: No: D o not add to previous draw Performed By: #### 4 1000, 06515, 26839 ####[facility] [facility].[address] ALT [Catalytic activity/Vol] 9 U/L Normal 7-52 [facility] Comment on above: Order Comment: No: D o not add to previous draw Performed By: #### 4 1000, 28973, 51350 ####[facility] [place] [address], [place] AST [Catalytic activity/Vol] 20 U/L Normal 13-39 [facility] Comment on above: Order Comment: No: D o not add to previous draw Performed By: #### 4 1000, 14139, 48026 ####[facility] [place] [address], [place] Bilirubin [Mass/Vol] 0.6 mg/dL Normal 0.3-1.0 [facility] Comment on above: Order Comment: No: D o not add to previous draw Performed By: #### 4 1000, 19794, 60129 ####[facility] [place] [address], [place] Calcium [Mass/Vol] 8.5 mg/dL Low 8.6-10.3 [facility] Comment on above: Order Comment: No: D o not add to previous draw Performed By: #### 4 1000, 87279, 57418 ####[facility] [place] [address], [place] Chloride [Moles/Vol] 98 mmol/L Normal 98-107 [facility] Comment on above: Order Comment: No: D o not add to previous draw Performed By: #### 4 1000, 48210, 56494 ####[facility] [place] [address], [place] CO2 [Moles/Vol] 31 mmol/L Normal 21-31 [facility] Comment on above: Order Comment: No: D o not add to previous draw Performed By: #### 4 1000, 62381, 63224 ####[facility] [place] [address], [place] Creatinine [Mass/Vol] 0.74 mg/dL Normal 0.70-1.30 [facility] Comment on above: Order Comment: No: D o not add to previous draw Performed By: #### 4 1000, 44056, 67136 ####[facility] [place] [address], [place] GFR/1.73 sq M.predicted among blacks MDRD (S/P/Bld) [Vol rate/Area] mL/min/{1.73_m2} Normal >60 [facility] Comment on above: Order Comment: No: D o not add to previous draw Result Comment: Calc ulation may not be valid for patients over 70 years Performed By: #### 4 1000, 46413, 22191 ####[facility] [place] [address], [place] GFR/1.73 sq M.predicted among non-blacks MDRD (S/P/Bld) [Vol rate/Area] mL/min/{1.73_m2} Normal >60 [facility] Comment on above: Order Comment: No: D o not add to previous draw Result Comment: Calc ulation may not be valid for patients over 70 years Performed By: #### 4 1000, 05663, 18795 ####[facility] [place] [address], [place] Glucose [Mass/Vol] 143 mg/dL High 70-100 [facility] Comment on above: Order Comment: No: D o not add to previous draw Performed By: #### 4 1000, 94986, 94464 ####[facility] [place] [address], [place] Potassium [Moles/Vol] 3.4 mmol/L Low 3.5-5.1 [facility] Comment on above: Order Comment: No: D o not add to previous draw Performed By: #### 4 1000, 82486, 93725 ####[facility] [place] [address], [place] Protein [Mass/Vol] 6.7 g/dL Normal 6.0-8.3 [facility] Comment on above: Order Comment: No: D o not add to previous draw Performed By: #### 4 1000, 41420, 10663 ####[facility] [place] [address], [facility] Sodium [Moles/Vol] 134 mmol/L Low 136-145 [facility] Comment on above: Order Comment: No: D o not add to previous draw Performed By: #### 4 1000, 11886, 05140 ####[facility] [place] [address], [place] Urea nitrogen [Mass/Vol] 14 mg/dL Normal 7-25 [facility] Comment on above: Order Comment: No: D o not add to previous draw Performed By: #### 4 1000, 23476, 21416 ####[facility] [place] [address], [place] MAGNESIUM BLOODon 05-19-2021 Magnesium [Mass/Vol] 1.9 mg/dL Normal 1.9-2.7 [facility] Comment on above: Order Comment: No: D o not add to previous draw Performed By: #### 4 1000, 81913, 81575 ####[facility] [place] [address], [facility] PHOSPHORUS BLOODon Phosphate [Mass/Vol] 3.1 mg/dL Normal 2.5-5.0 [facility] Comment on above: Order Comment: No: D o not add to previous draw Performed By: #### 4 1000, 30273, 10137 ####[facility] [place] [address], [place] POC GLUCOSE LABon 05-19-2021 Glucose [Mass/Vol] 124 mg/dL High 70-100 [facility] Comment on above: Performed By: #### 8 5499 ####[facility] [place] [address], [place] Glucose [Mass/Vol] 132 mg/dL High 70-100 [facility] Comment on above: Performed By: #### 8 5499 ####[facility] [facility] [place] [address], [facility] Glucose [Mass/Vol] 153 mg/dL High 70-100 [facility] Comment on above: Performed By: #### 8 5499 ####[facility] [facility] [place] [address], [facility] Glucose [Mass/Vol] 133 mg/dL High 70-100 [facility] Comment on above: Performed By: #### 8 5499 ####[facility] [facility].[address] POC SARS COV2 ANTIGEN NEGATI VEon 05-19-2021 POC SARS COV2 ANTIGEN NEG Negative Normal NEGATIVE [facility] Comment on above: Result Comment: [...] of clinicalsigns and symptoms consistent with COVID-19.The [employer] COVID-19 Ag Card is a lateral flow immunoassay intended forthe qualitative detection of nucleocapsid protein antigen [id number] in direct nasal swabs from individuals within [...] Certificate ofAccreditation. Performed By: #### 3 1977 ####[facility] [facility] [place] [address], [facility] VANCOMYCIN TIMEDon 1 VANCOMYCIN TIMED 16.3 mcg/mL Normal [facility] Comment on above: Performed By: #### 3 0953 ####[facility] [place] [address], [facility] CBC W/DIFFon 05-18-2021 ABS IMM GRANS 0.0 10*3/uL Normal 0.0-0.2 [facility] Comment on above: Order Comment: No: D o not add to previous draw Performed By: #### 5 0103 ####[facility] [place] [address], [facility] ABS NEUTROPHILS 5.1 10*3/uL Normal 1.6-7.6 [facility] Comment on above: Order Comment: No: D o not add to previous draw Performed By: #### 5 0103 ####[facility] [place] [address], [facility] Basophils (Bld) [#/Vol] 0.0 10*3/uL Normal 0.0-0.2 [facility] Comment on above: Order Comment: No: D o not add to previous draw Performed By: #### 5 0103 ####[facility] [place] [address], [facility] Basophils/100 WBC (Bld) 0.4 % Normal 0.0-1.0 [facility] Comment on above: Order Comment: No: D o not add to previous draw Performed By: #### 5 0103 ####[facility] [place] [address], [facility] Eosinophils (Bld) [#/Vol] 0.2 10*3/uL Normal 0.0-0.5 [facility] Comment on above: Order Comment: No: D o not add to previous draw Performed By: #### 5 0103 ####[facility] [place] [address], [facility] Eosinophils/100 WBC (Bld) 2.6 % Normal 0.0-6.0 [facility] Comment on above: Order Comment: No: D o not add to previous draw Performed By: #### 5 0103 ####[facility] Erythrocyte distribution width (RBC) [Ratio] 14.1 % Normal 11.5-15.0 [facility] Comment on above: Order Comment: No: D o not add to previous draw Performed By: #### 5 0103 ####[facility] Hematocrit (Bld) [Volume fraction] 27.5 % Low 39.0-50.0 [facility] Comment on above: Order Comment: No: D o not add to previous draw Performed By: #### 5 3 ####[facility] Hemoglobin (Bld) [Mass/Vol] 8.6 g/dL Low 13.0-17.0 [facility] Comment on above: Order Comment: No: D o not add to previous draw Performed By: #### 5 0103 ####[facility] IMMATURE GRANS 0.1 % Normal 0.0-1.0 [facility] Comment on above: Order Comment: No: D o not add to previous draw Performed By: #### 5 0103 ####[facility] Lymphocytes (Bld) [#/Vol] 1.3 10*3/uL Normal 1.2-4.0 [facility] Comment on above: Order Comment: No: D o not add to previous draw Performed By: #### 5 0103 ####[facility] Lymphocytes/100 WBC (Bld) 18.0 % Low 20.0-45.0 [facility] Comment on above: Order Comment: No: D o not add to previous draw Performed By: #### 5 0103 ####[facility] MCH (RBC) [Entitic mass] 28.7 pg Normal 27.0-33.0 [facility] Comment on above: Order Comment: No: D o not add to previous draw Performed By: #### 5 0103 ####[facility] MCHC (RBC) [Mass/Vol] 31.3 g/dL Low 32.0-35.0 [facility] Comment on above: Order Comment: No: D o not add to previous draw Performed By: #### 5 0103 ####[facility] MCV (RBC) [Entitic vol] 91.7 fL Normal 82.0-98.0 [facility] Comment on above: Order Comment: No: D o not add to previous draw Performed By: #### 5 0103 ####[facility] [place] [address] Monocytes (Bld) [#/Vol] 0.7 10*3/uL Normal 0.1-1.0 [facility] Comment on above: Order Comment: No: D o not add to previous draw Performed By: #### 5 0103 ####[facility] MONOS 10.0 % Normal 5.0-12.0 [facility] Comment on above: Order Comment: No: D o not add to previous draw Performed By: #### 5 0103 ####[facility] [place] [address] Neutrophils/100 WBC (Bld) 68.9 % Normal 40.0-72.0 [facility] Comment on above: Order Comment: No: D o not add to previous draw Performed By: #### 5 0103 ####[facility] Nucleated RBC/100 WBC (Bld) [Ratio] 0 % Normal 0-0 [facility] Comment on above: Order Comment: No: D o not add to previous draw Performed By: #### 5 0103 ####[facility] [place] [address], [facility] PLAT CNT 288 10*3/uL Normal 150-400 [facility] Comment on above: Order Comment: No: D o not add to previous draw Performed By: #### 5 0103 ####[facility] [place] [address], [facility] RBC (Bld) [#/Vol] 3.00 10*6/uL Low 4.20-5.70 [facility] Comment on above: Order Comment: No: D o not add to previous draw Performed By: #### 5 0103 ####[facility] [place] [address], [facility] WBC (Bld) [#/Vol] 7.40 10*3/uL Normal 4.00-10.60 [facility] Comment on above: Order Comment: No: D o not add to previous draw Performed By: #### 5 0103 ####[facility] [place] [address], [facility] COMP METABOLIC PANELon 05-18 Albumin [Mass/Vol] 2.7 g/dL Low 3.5-5.7 [facility] Comment on above: Order Comment: No: D o not add to previous draw Performed By: #### 4 1000, 22189, 55437, 24972 ####[facility] [place] [address], [facility] ALKALINE PHOSPH 62 IU/L Normal 34-104 [facility] Comment on above: Order Comment: No: D o not add to previous draw Performed By: #### 4 1000, 42796, 90959, 28851 ####[facility] [place] [address], [facility] ALT [Catalytic activity/Vol] 11 U/L Normal 7-52 [facility] Comment on above: Order Comment: No: D o not add to previous draw Performed By: #### 4 1000, 57802, 19166, 93307 ####[facility] [place] [address], [facility] AST [Catalytic activity/Vol] 31 U/L Normal 13-39 [facility] Comment on above: Order Comment: No: D o not add to previous draw Performed By: #### 4 1000, 62876, 87260, 74958 ####[facility] [place] [address], [facility] Bilirubin [Mass/Vol] 0.8 mg/dL Normal 0.3-1.0 [facility] Comment on above: Order Comment: No: D o not add to previous draw Performed By: #### 4 1000, 22145, 91861, 62908 ####[facility] [place] [address], [facility] Calcium [Mass/Vol] 8.0 mg/dL Low 8.6-10.3 [facility] Comment on above: Order Comment: No: D o not add to previous draw Performed By: #### 4 1000, 49001, 46017, 44744 ####[facility] [id number], [facility] Chloride [Moles/Vol] 98 mmol/L Normal 98-107 [facility] Comment on above: Order Comment: No: D o not add to previous draw Performed By: #### 4 1000, 94631, 89786, 26531 ####[facility] [place] [address], [facility] CO2 [Moles/Vol] 33 mmol/L High 21-31 [facility] Comment on above: Order Comment: No: D o not add to previous draw Performed By: #### 4 1000, 24709, 30353, 48617 ####[facility] [place] [address], [facility] Creatinine [Mass/Vol] 0.89 mg/dL Normal 0.70-1.30 [facility] Comment on above: Order Comment: No: D o not add to previous draw Performed By: #### 4 1000, 44212, 40893, 58943 ####[facility] [place] [address], [facility] GFR/1.73 sq M.predicted among blacks MDRD (S/P/Bld) [Vol rate/Area] mL/min/{1.73_m2} Normal >60 [facility] Comment on above: Order Comment: No: D o not add to previous draw Result Comment: Calc ulation may not be valid for patients over 70 years Performed By: #### 4 1000, 38377, 81661, 51560 ####[facility] [facility] [place] [address], [facility] GFR/1.73 sq M.predicted among non-blacks MDRD (S/P/Bld) [Vol rate/Area] mL/min/{1.73_m2} Normal >60 [facility] Comment on above: Order Comment: No: D o not add to previous draw Result Comment: Calc ulation may not be valid for patients over 70 years Performed By: #### 4 1000, 68285, 94533, 21383 ####[facility] [place] [address], [facility] Glucose [Mass/Vol] 108 mg/dL High 70-100 [facility] Comment on above: Order Comment: No: D o not add to previous draw Performed By: #### 4 1000, 32742, 14905, 87354 ####[facility] [place] [address], [facility] Potassium [Moles/Vol] 3.7 mmol/L Normal 3.5-5.1 [facility] Comment on above: Order Comment: No: D o not add to previous draw Performed By: #### 4 1000, 59192, 44326, 55930 ####[facility] [id number], [facility] Protein [Mass/Vol] 6.6 g/dL Normal 6.0-8.3 [facility] Comment on above: Order Comment: No: D o not add to previous draw Performed By: #### 4 1000, 57604, 76782, 68041 ####[facility] [place] [address], [facility] Sodium [Moles/Vol] 136 mmol/L Normal 136-145 [facility] Comment on above: Order Comment: No: D o not add to previous draw Performed By: #### 4 1000, 99741, 65677, 07338 ####[facility] [place] [address], [facility] Urea nitrogen [Mass/Vol] 16 mg/dL Normal 7-25 [facility] Comment on above: Order Comment: No: D o not add to previous draw Performed By: #### 4 1000, 92746, 27830, 07791 ####[facility] [id number], [facility] MAGNESIUM BLOODon 05-18-2021 Magnesium [Mass/Vol] 1.9 mg/dL Normal 1.9-2.7 [facility] Comment on above: Order Comment: No: D o not add to previous draw Performed By: #### 4 1000, 00281, 92579, 65339 ####[facility] [facility] [place] [address], [facility] PHOSPHORUS BLOODon Phosphate [Mass/Vol] 4.2 mg/dL Normal 2.5-5.0 [facility] Comment on above: Order Comment: No: D o not add to previous draw Performed By: #### 4 1000, 24056, 36212, 58426 ####[facility] [facility] [place] [address], [facility] POC GLUCOSE LABon 05-18-2021 Glucose [Mass/Vol] 152 mg/dL High 70-100 [facility] Comment on above: Performed By: #### 8 5499 ####[facility] [facility] [place] [address], [facility] Glucose [Mass/Vol] 140 mg/dL High 70-100 [facility] Comment on above: Performed By: #### 8 5499 ####[facility] [facility] [place] [address], [facility] Glucose [Mass/Vol] 202 mg/dL High 70-100 [facility] Comment on above: Performed By: #### 8 5499 ####[facility] [facility] [place] [address], [facility] Glucose [Mass/Vol] 121 mg/dL High 70-100 [facility] Comment on above: Performed By: #### 8 5499 ####[facility] [facility] [place] [address], [facility] PORTABLE CHEST 1 VIEWon 04-25 PORTABLE CHEST 1 VIEW Normal [facility] Comment on above: Order Comment: EValu ate for Effusion VANCOMYCIN TIMEDon VANCOMYCIN TIMED 10.2 mcg/mL Normal [facility] Comment on above: Performed By: #### 4 1000, 93452, 14808, 67749 ####[facility] [facility] [place] [address], [facility] CBC W/DIFFon 05-17-2021 ABS IMM GRANS 0.0 10*3/uL Normal 0.0-0.2 [facility] Comment on above: Order Comment: No: D o not add to previous draw Performed By: #### 5 0103 ####[facility] [place] [address], [facility] ABS NEUTROPHILS 3.6 10*3/uL Normal 1.6-7.6 [facility] Comment on above: Order Comment: No: D o not add to previous draw Performed By: #### 5 0103 ####[facility] [facility] [place] [address], [facility] Basophils (Bld) [#/Vol] 0.1 10*3/uL Normal 0.0-0.2 [facility] Comment on above: Order Comment: No: D o not add to previous draw Performed By: #### 5 0103 ####[facility] [facility] [place] [address], [facility] Basophils/100 WBC (Bld) 0.9 % Normal 0.0-1.0 [facility] Comment on above: Order Comment: No: D o not add to previous draw Performed By: #### 5 0103 ####[facility] [place] [address], [facility] Eosinophils (Bld) [#/Vol] 0.1 10*3/uL Normal 0.0-0.5 [facility] Comment on above: Order Comment: No: D o not add to previous draw Performed By: #### 5 0103 ####[facility] [facility] [place] [address], [facility] Eosinophils/100 WBC (Bld) 0.9 % Normal 0.0-6.0 [facility] Comment on above: Order Comment: No: D o not add to previous draw Performed By: #### 5 0103 ####[facility] [place] [address], [facility] Erythrocyte distribution width (RBC) [Ratio] 14.6 % Normal 11.5-15.0 [facility] Comment on above: Order Comment: No: D o not add to previous draw Performed By: #### 5 0103 ####[facility] Hematocrit (Bld) [Volume fraction] 27.7 % Low 39.0-50.0 [facility] Comment on above: Order Comment: No: D o not add to previous draw Performed By: #### 5 0103 ####[facility] Hemoglobin (Bld) [Mass/Vol] 8.5 g/dL Low 13.0-17.0 [facility] Comment on above: Order Comment: No: D o not add to previous draw Performed By: #### 5 0103 ####[facility] IMMATURE GRANS 0.5 % Normal 0.0-1.0 [facility] Comment on above: Order Comment: No: D o not add to previous draw Performed By: #### 5 3 ####[facility] Lymphocytes (Bld) [#/Vol] 1.4 10*3/uL Normal 1.2-4.0 [facility] Comment on above: Order Comment: No: D o not add to previous draw Performed By: #### 5 0103 ####[facility] Lymphocytes/100 WBC (Bld) 23.3 % Normal 20.0-45.0 [facility] Comment on above: Order Comment: No: D o not add to previous draw Performed By: #### 5 0103 ####[facility] MCH (RBC) [Entitic mass] 28.4 pg Normal 27.0-33.0 [facility] Comment on above: Order Comment: No: D o not add to previous draw Performed By: #### 5 0103 ####[facility] [facility].[address] MCHC (RBC) [Mass/Vol] 30.7 g/dL Low 32.0-35.0 [facility] Comment on above: Order Comment: No: D o not add to previous draw Performed By: #### 5 0103 ####[facility] MCV (RBC) [Entitic vol] 92.6 fL Normal 82.0-98.0 [facility] Comment on above: Order Comment: No: D o not add to previous draw Performed By: #### 5 3 ####[facility] Monocytes (Bld) [#/Vol] 0.7 10*3/uL Normal 0.1-1.0 [facility] Comment on above: Order Comment: No: D o not add to previous draw Performed By: #### 5 0103 ####[facility] [facility].[address] MONOS 11.7 % Normal 5.0-12.0 [facility] Comment on above: Order Comment: No: D o not add to previous draw Performed By: #### 5 0103 ####[facility] Neutrophils/100 WBC (Bld) 62.7 % Normal 40.0-72.0 [facility] Comment on above: Order Comment: No: D o not add to previous draw Performed By: #### 5 0103 ####[facility] [place] [address] Nucleated RBC/100 WBC (Bld) [Ratio] 0 % Normal 0-0 [facility] Comment on above: Order Comment: No: D o not add to previous draw Performed By: #### 5 0103 ####[facility] [place] [address], [facility] PLAT CNT 325 10*3/uL Normal 150-400 [facility] Comment on above: Order Comment: No: D o not add to previous draw Performed By: #### 5 0103 ####[facility] [place] [address], [facility] RBC (Bld) [#/Vol] 2.99 10*6/uL Low 4.20-5.70 [facility] Comment on above: Order Comment: No: D o not add to previous draw Performed By: #### 5 0103 ####[facility] [place] [address], [facility] WBC (Bld) [#/Vol] 5.79 10*3/uL Normal 4.00-10.60 [facility] Comment on above: Order Comment: No: D o not add to previous draw Performed By: #### 5 0103 ####[facility] COMP METABOLIC PANELon 05-17 Albumin [Mass/Vol] 2.8 g/dL Low 3.5-5.7 [facility] Comment on above: Order Comment: No: D o not add to previous draw Performed By: #### 4 1000, 21784, 85166 ####[facility] [place] [address], [facility] ALKALINE PHOSPH 55 IU/L Normal 34-104 [facility] Comment on above: Order Comment: No: D o not add to previous draw Performed By: #### 4 1000, 52520, 28651 ####[facility] [place] [address], [facility] ALT [Catalytic activity/Vol] 7 U/L Normal 7-52 [facility] Comment on above: Order Comment: No: D o not add to previous draw Performed By: #### 4 1000, 76188, 42906 ####[facility] [place] [address], [place] AST [Catalytic activity/Vol] 11 U/L Low 13-39 [facility] Comment on above: Order Comment: No: D o not add to previous draw Performed By: #### 4 1000, 64085, 67975 ####[facility] [place] [address], [place] Bilirubin [Mass/Vol] 0.6 mg/dL Normal 0.3-1.0 [facility] Comment on above: Order Comment: No: D o not add to previous draw Performed By: #### 4 1000, 28435, 28431 ####[facility] [place] [address], [place] Calcium [Mass/Vol] 8.2 mg/dL Low 8.6-10.3 [facility] Comment on above: Order Comment: No: D o not add to previous draw Performed By: #### 4 1000, 68247, 73203 ####[facility] [place] [address], [place] Chloride [Moles/Vol] 102 mmol/L Normal 98-107 [facility] Comment on above: Order Comment: No: D o not add to previous draw Performed By: #### 4 1000, 01695, 22995 ####[facility] [place] [address], [place] CO2 [Moles/Vol] 31 mmol/L Normal 21-31 [facility] Comment on above: Order Comment: No: D o not add to previous draw Performed By: #### 4 1000, 82053, 44578 ####[facility] [place] [address], [place] Creatinine [Mass/Vol] 1.19 mg/dL Normal 0.70-1.30 [facility] Comment on above: Order Comment: No: D o not add to previous draw Performed By: #### 4 1000, 66817, 10229 ####[facility] [place] [address], [facility] eGFR- non- 59 ml/min/1.73sq m Abnormal >60 [facility] Comment on above: Order Comment: No: D o not add to previous draw Result Comment: Calc ulation may not be valid for patients over 70 years Performed By: #### 4 1000, 57981, 93132 ####[facility] [place] [address], [facility] GFR/1.73 sq M.predicted among blacks MDRD (S/P/Bld) [Vol rate/Area] mL/min/{1.73_m2} Normal >60 [facility] Comment on above: Order Comment: No: D o not add to previous draw Result Comment: Calc ulation may not be valid for patients over 70 years Performed By: #### 4 1000, 38856, 77194 ####[facility] [place] [address], [place] Glucose [Mass/Vol] 99 mg/dL Normal 70-100 [facility] Comment on above: Order Comment: No: D o not add to previous draw Performed By: #### 4 1000, 07995, 51502 ####[facility] [place] [address], [place] Potassium [Moles/Vol] 3.7 mmol/L Normal 3.5-5.1 [facility] Comment on above: Order Comment: No: D o not add to previous draw Performed By: #### 4 1000, 94927, 31617 ####[facility] [place] [address], [place] Protein [Mass/Vol] 6.6 g/dL Normal 6.0-8.3 [facility] Comment on above: Order Comment: No: D o not add to previous draw Performed By: #### 4 1000, 47505, 52199 ####[facility] [place] [address], [facility] Sodium [Moles/Vol] 138 mmol/L Normal 136-145 [facility] Comment on above: Order Comment: No: D o not add to previous draw Performed By: #### 4 1000, 26366, 21871 ####[facility] [place] [address], [place] Urea nitrogen [Mass/Vol] 16 mg/dL Normal 7-25 [facility] Comment on above: Order Comment: No: D o not add to previous draw Performed By: #### 4 1000, 74896, 30604 ####[facility] [place] [address], [place] MAGNESIUM BLOODon 05-17-2021 Magnesium [Mass/Vol] 2.0 mg/dL Normal 1.9-2.7 [facility] Comment on above: Order Comment: No: D o not add to previous draw Performed By: #### 4 1000, 42578, 67284 ####[facility] [place] [address], [place] PHOSPHORUS BLOODon Phosphate [Mass/Vol] 4.6 mg/dL Normal 2.5-5.0 [facility] Comment on above: Order Comment: No: D o not add to previous draw Performed By: #### 4 1000, 10478, 03417 ####[facility] [place] [address], [place] POC GLUCOSE LABon 05-17-2021 Glucose [Mass/Vol] 139 mg/dL High 70-100 [facility] Comment on above: Performed By: #### 8 5499 ####[facility] [place] [address], [place] Glucose [Mass/Vol] 100 mg/dL Normal 70-100 [facility] Comment on above: Performed By: #### 8 5499 ####[facility] [place] [address], [facility] Glucose [Mass/Vol] 122 mg/dL High 70-100 [facility] Comment on above: Performed By: #### 8 5499 ####[facility] [place] [address], [facility] Glucose [Mass/Vol] 107 mg/dL High 70-100 [facility] Comment on above: Performed By: #### 8 5499 ####[facility] [place] [address], [facility] PORTABLE CHEST 1 VIEWon 04-25 PORTABLE CHEST 1 VIEW Normal [facility] Comment on above: Order Comment: evalu ate for Atelectasis *ANAEROBIC CULTUREon 021 *ANAEROBIC CULTURE Clinical Report: (D) Specimen/Source: TISSUE/INTRAOP SPEC Collected: 05/16/2021 10:48 Status: Final Last Updated: 05/21/2021 08:50 (1) STERNAL TISSUE ISO (Final) No Anaerobes Isolated Day 5 Normal [facility] Comment on above: Order Comment: BRANDT AL TISSUE Performed By: #### 3 0312 ####[facility] [facility] [place] [address], [facility] *ANAEROBIC CULTURE Clinical Report: (D) Specimen/Source: SWAB/INTRAOP SPEC Collected: 05/16/2021 10:45 Status: Final Last Updated: 05/21/2021 08:50 (1) STERNAL WOUND ISO (Final) No Anaerobes Isolated Day 5 Normal [facility] Comment on above: Order Comment: BRANDT AL WOUND Performed By: #### 3 0312 ####[facility] [place] [address], [facility] *TISSUE CULTUREon 05-16-2021 *TISSUE CULTURE Normal [facility] Comment on above: Order Comment: BRANDT AL TISSUE Performed By: #### 3 0338 ####[facility] *WOUND CULTUREon 05-16-2021 *WOUND CULTURE Normal [facility] Comment on above: Order Comment: BRANDT AL WOUND Performed By: #### 3 0343 ####[address] APTTon 05-16-2021 aPTT Coag (Bld) [Time] 32.6 s Normal 25.0-35.0 [facility] Comment on above: Order [...] THIS PURPOSE. Performed By: #### 5 7307, 26079 ####[address] BASIC METABOLIC PANELon 04-25 Calcium [Mass/Vol] 8.5 mg/dL Low 8.6-10.3 [facility] Comment on above: Order Comment: No: D o not add to previous draw Performed By: #### 4 1000, 02157, 70518 ####[place] [address] [facility] [place] [address], [facility] Chloride [Moles/Vol] 101 mmol/L Normal 98-107 [facility] Comment on above: Order Comment: No: D o not add to previous draw Performed By: #### 4 1000, 07684, 61563 ####[facility] [facility] [place] [address], [facility] CO2 [Moles/Vol] 31 mmol/L Normal 21-31 [facility] Comment on above: Order Comment: No: D o not add to previous draw Performed By: #### 4 1000, 77451, 88659 ####[facility] [place] [address], [facility] Creatinine [Mass/Vol] 0.66 mg/dL Low 0.70-1.30 [facility] Comment on above: Order Comment: No: D o not add to previous draw Performed By: #### 4 1000, 02108, 72645 ####[facility] [place] [address], [facility] GFR/1.73 sq M.predicted among blacks MDRD (S/P/Bld) [Vol rate/Area] mL/min/{1.73_m2} Normal >60 [facility] Comment on above: Order Comment: No: D o not add to previous draw Result Comment: Calc ulation may not be valid for patients over 70 years Performed By: #### 4 1000, , 54315 ####[facility] [place] [address], [facility] GFR/1.73 sq M.predicted among non-blacks MDRD (S/P/Bld) [Vol rate/Area] mL/min/{1.73_m2} Normal >60 [facility] Comment on above: Order Comment: No: D o not add to previous draw Result Comment: Calc ulation may not be valid for patients over 70 years Performed By: #### 4 1000, , 52679 ####[facility] [place] [address], [facility] Glucose [Mass/Vol] 117 mg/dL High 70-100 [facility] Comment on above: Order Comment: No: D o not add to previous draw Performed By: #### 4 1000, 27549, 30298 ####[facility] [place] [address], [facility] Potassium [Moles/Vol] 4.1 mmol/L Normal 3.5-5.1 [facility] Comment on above: Order Comment: No: D o not add to previous draw Performed By: #### 4 1000, 72707, 50616 ####[facility] [facility].[address] Sodium [Moles/Vol] 136 mmol/L Normal 136-145 [facility] Comment on above: Order Comment: No: D o not add to previous draw Performed By: #### 4 1000, 27649, 93351 ####[facility] [facility].[address] Urea nitrogen [Mass/Vol] 11 mg/dL Normal 7-25 [facility] Comment on above: Order Comment: No: D o not add to previous draw Performed By: #### 4 1000, 69916, 95539 ####[facility] [facility].[address] CBC COMPLETE BLOOD COUNTon 0 - Erythrocyte distribution width (RBC) [Ratio] 14.5 % Normal 11.5-15.0 [facility] Comment on above: Order Comment: No: D o not add to previous draw Performed By: #### 5 0608 ####[facility] [facility].[address] Hematocrit (Bld) [Volume fraction] 30.5 % Low 39.0-50.0 [facility] Comment on above: Order Comment: No: D o not add to previous draw Performed By: #### 5 0608 ####[facility] [facility].[address] Hemoglobin (Bld) [Mass/Vol] 9.5 g/dL Low 13.0-17.0 [facility] Comment on above: Order Comment: No: D o not add to previous draw Performed By: #### 5 0608 ####[facility] [facility].[address] MCH (RBC) [Entitic mass] 28.5 pg Normal 27.0-33.0 [facility] Comment on above: Order Comment: No: D o not add to previous draw Performed By: #### 5 0608 ####[facility] [facility].[address] MCHC (RBC) [Mass/Vol] 31.1 g/dL Low 32.0-35.0 [facility] Comment on above: Order Comment: No: D o not add to previous draw Performed By: #### 5 0608 ####[facility] [facility].[address] MCV (RBC) [Entitic vol] 91.6 fL Normal 82.0-98.0 [facility] Comment on above: Order Comment: No: D o not add to previous draw Performed By: #### 5 0608 ####[address] Nucleated RBC/100 WBC (Bld) [Ratio] 0 % Normal 0-0 [facility] Comment on above: Order Comment: No: D o not add to previous draw Performed By: #### 5 0608 ####[facility] [facility].[address] PLAT CNT 353 10*3/uL Normal 150-400 [facility] Comment on above: Order Comment: No: D o not add to previous draw Performed By: #### 5 0608 ####[address] RBC (Bld) [#/Vol] 3.33 10*6/uL Low 4.20-5.70 [facility] Comment on above: Order Comment: No: D o not add to previous draw Performed By: #### 5 0608 ####[address] WBC (Bld) [#/Vol] 5.98 10*3/uL Normal 4.00-10.60 [facility] Comment on above: Order Comment: No: D o not add to previous draw Performed By: #### 5 0608 ####[facility] [id number], [facility] LACTATE BLOODon 05-16-2021 Lactate [Moles/Vol] 0.6 mmol/L Normal .5-2.2 [facility] Comment on above: Order Comment: No: D o not add to previous draw Performed By: #### 1 0054 ####[facility] [place] [address], [facility] Lactate [Moles/Vol] 0.8 mmol/L Normal .5-2.2 [facility] Comment on above: Order Comment: No: D o not add to previous draw Performed By: #### 1 0054 ####[facility] [place] [address], [facility] MAGNESIUM BLOODon 05-16-2021 Magnesium [Mass/Vol] 1.9 mg/dL Normal 1.9-2.7 [facility] Comment on above: Order Comment: No: D o not add to previous draw Performed By: #### 4 1000, 12474, 57569 ####[facility] [place] [address], [facility] OSMOLALITY BLOODon 1 Osmolality [Osmolality] 292 mosm/kg Normal 285-305 [facility] Comment on above: Order Comment: No: D o not add to previous draw Performed By: #### 3 9301, 36109 ####[facility] [place] [address], [facility] Osmolality [Osmolality] 297 mosm/kg Normal 285-305 [facility] Comment on above: Order Comment: No: D o not add to previous draw Performed By: #### 3 9301, 97351 ####[facility] [place] [address], [facility] PHOSPHORUS BLOODon 1 Phosphate [Mass/Vol] 4.3 mg/dL Normal 2.5-5.0 [facility] Comment on above: Order Comment: No: D o not add to previous draw Performed By: #### 4 1000, 16800, 02430 ####[facility] [place] [address], [facility] POC GLUCOSE LABon 05-16-2021 Glucose [Mass/Vol] 121 mg/dL High 70-100 [facility] Comment on above: Performed By: #### 8 5499 ####[facility] [place] [address], [place] Glucose [Mass/Vol] 126 mg/dL High 70-100 [facility] Comment on above: Performed By: #### 8 5499 ####[facility] [place] [address], [place] Glucose [Mass/Vol] 133 mg/dL High 70-100 [facility] Comment on above: Performed By: #### 8 5499 ####[facility] [place] [address], [place] Glucose [Mass/Vol] 131 mg/dL High 70-100 [facility] Comment on above: Performed By: #### 8 5499 ####[facility] [place] [address], [place] PORTABLE CHEST 1 VIEWon 04-25 PORTABLE CHEST 1 VIEW Normal [facility] Comment on above: Order Comment: Check NG Tube Position PORTABLE CHEST 1 VIEW Normal [facility] Comment on above: Order Comment: Evalu ate Atelectasis PROTHROMBIN TIMEon INR Coag (PPP) [Relative time] 1.15 {INR} Normal 0.91-1.16 [facility] Comment on above: [...] OF ACTION, CLINICALEFFECTIVENESS, AND OPTIMAL THERAPEUTIC RANGE. [id number]. Performed By: #### 5 7307, 93286 ####[facility] PT Coag (PPP) [Time] 14.7 s Normal 12.3-14.8 [facility] Comment on above: Order Comment: No: D o not add to previous draw Result Comment: ALL RESULTS MUST BE INTERPRETED WITH RESPECT TO BLOOD DRAWING ARTIFACTOR DILUTION ERROR OF ANTICOAGULANT AT THE TIME OF SAMPLING. Performed By: #### 5 7307, 97859 ####[facility] TRIGLYCERIDES BLOODon 2020 Triglyceride [Mass/Vol] 95 mg/dL Normal 40-149 [facility] Comment on above: Order Comment: No: D o not add to previous draw Result Comment: TRIG LYCERIDE REFERENCE RANGE:20 YEARS AND OLDER CARDIOVASCULAR RISKLESS THAN 150 mg/dl LOW [id number] TO 199 mg/dl BORDERLINE [id number] mg/dl AND GREATER HIGH RISK Performed By: #### 3 9301, 47732 ####[facility] [facility].[address] Triglyceride [Mass/Vol] 98 mg/dL Normal 40-149 [facility] Comment on above: Order Comment: No: D o not add to previous draw Result Comment: TRIG LYCERIDE REFERENCE RANGE:20 YEARS AND OLDER CARDIOVASCULAR RISKLESS THAN 150 mg/dl LOW CAVX199 TO 199 mg/dl BORDERLINE SCTR012 mg/dl AND GREATER HIGH RISK Performed By: #### 3 9301, 37452 ####[facility] *BLOOD CULTUREon 05-15-2021 *BLOOD CULTURE Clinical Report: (D) Specimen: BLOOD CULTURE Collected: 05/15/2021 11:35 Status: Final Last Updated: 05/20/2021 14:11 (1) Prior to antibiotic administration CULT RES (Final) No Growth Day 5 Normal [facility] Comment on above: Order Comment: Prior to antibiotic administration Performed By: #### 3 0313 ####[facility] APTTon 05-15-2021 aPTT Coag (Bld) [Time] 30.4 s Normal 25.0-35.0 [facility] Comment on above: Result Comment: [...] THIS PURPOSE. Performed By: #### 5 7307, 56115 ####[facility] ARTERIAL BLOOD GAS W/COOXon 05-15-2021 BASE EXCESS 2 mmol/L Normal -2-3 [facility] Comment on above: Order Comment: RESUL TS CHECKED AND CALLED. ACCURATELY READ BACK BY RADHIKA BLANTON. Performed By: #### 4 0055 ####[facility] COHB 2.3 % High 0.0-1.5 [facility] Comment on above: Order Comment: RESUL TS CHECKED AND CALLED. ACCURATELY READ BACK BY RADHIKA ED CHARGE. Performed By: #### 4 0055 ####[facility] DELIVERY SYSTEMS [place] Normal [facility] Comment on above: Order Comment: RESUL TS CHECKED AND CALLED. ACCURATELY READ BACK BY RADHIKA ED CHARGE. Performed By: #### 4 5 ####[facility] [facility].[address] HCO3 (Bld) [Moles/Vol] 29 mmol/L High 21-28 [facility] Comment on above: Order Comment: RESUL TS CHECKED AND CALLED. ACCURATELY READ BACK BY RADHIKA ED CHARGE. Performed By: #### 4 0055 ####[facility] [facility].[address] LPM 5.0 LPM Normal [facility] Comment on above: Order Comment: RESUL TS CHECKED AND CALLED. ACCURATELY READ BACK BY RADHIKA ED CHARGE. Performed By: #### 4 0055 ####[facility] [facility].[address] METHB 1.1 % Normal 0.0-1.5 [facility] Comment on above: Order Comment: RESUL TS CHECKED AND CALLED. ACCURATELY READ BACK BY RADHIKA ED CHARGE. Performed By: #### 4 0055 ####[facility] [facility].[address] MODALITY NC Normal [facility] Comment on above: Order Comment: RESUL TS CHECKED AND CALLED. ACCURATELY READ BACK BY RADHIKA ED CHARGE. Performed By: #### 4 0055 ####[facility] [facility].[address] Oxygen (Bld) [Partial pressure] 83 mm[Hg] Normal 83-108 [facility] Comment on above: Order Comment: RESUL TS CHECKED AND CALLED. ACCURATELY READ BACK BY RADHIKA ED CHARGE. Performed By: #### 4 0055 ####[facility] [facility].[address] Oxygen saturation in Blood 94.8 % Normal 94.0-97.0 [facility] Comment on above: Order Comment: RESUL TS CHECKED AND CALLED. ACCURATELY READ BACK BY RADHIKA ED CHARGE. Performed By: #### 4 0055 ####[address] [place] [address], [facility] PCO2 58 mmHg Critically high 35-45 [facility] Comment on above: Order Comment: RESUL TS CHECKED AND CALLED. ACCURATELY READ BACK BY RADHIKA ED CHARGE. Performed By: #### 4 0055 ####[address] pH (Bld) 7.31 [pH] Low 7.35-7.45 [facility] Comment on above: Order Comment: RESUL TS CHECKED AND CALLED. ACCURATELY READ BACK BY RADHIKA ED CHARGE. Performed By: #### 4 0055 ####[address] THB 10.2 g/dL Low 12.0-16.3 [facility] Comment on above: Order Comment: RESUL TS CHECKED AND CALLED. ACCURATELY READ BACK BY RADHIKA ED CHARGE. Performed By: #### 4 0055 ####[address] BNP (B-TYPE NATRIURETIC PEPT MAX)on 05-15-2021 Natriuretic peptide B (Bld) [Mass/Vol] 136 pg/mL High 0-100 [facility] Comment on above: Order Comment: Yes: Add to Previous draw if able Result Comment: Give n the appropriate clinical setting a BNP result of >100 pg/mLindicates congestive heart failure. Performed By: #### 8 5123 ####[address] [place] [address], [facility] CBC W/DIFFon 05-15-2021 ABS IMM GRANS 0.0 10*3/uL Normal 0.0-0.2 [facility] Comment on above: Performed By: #### 5 0103 ####[facility] [facility] [place] [address], [facility] ABS NEUTROPHILS 5.0 10*3/uL Normal 1.6-7.6 [facility] Comment on above: Performed By: #### 5 0103 ####[facility] [facility] [place] [address], [facility] Basophils (Bld) [#/Vol] 0.0 10*3/uL Normal 0.0-0.2 [facility] Comment on above: Performed By: #### 5 0103 ####[facility] [facility] [place] [address], [facility] Basophils/100 WBC (Bld) 0.6 % Normal 0.0-1.0 [facility] Comment on above: Performed By: #### 5 0103 ####[facility] [facility] [place] [address], [facility] Eosinophils (Bld) [#/Vol] 0.1 10*3/uL Normal 0.0-0.5 [facility] Comment on above: Performed By: #### 5 0103 ####[facility] [facility] [place] [address], [facility] Eosinophils/100 WBC (Bld) 0.7 % Normal 0.0-6.0 [facility] Comment on above: Performed By: #### 5 0103 ####[facility] Erythrocyte distribution width (RBC) [Ratio] 14.5 % Normal 11.5-15.0 [facility] Comment on above: Performed By: #### 5 3 ####[facility] [facility] [place] [address], [facility] Hematocrit (Bld) [Volume fraction] 32.5 % Low 39.0-50.0 [facility] Comment on above: Performed By: #### 5 0103 ####[facility] Hemoglobin (Bld) [Mass/Vol] 10.3 g/dL Low 13.0-17.0 [facility] Comment on above: Performed By: #### 5 0103 ####[facility] [place] [address] IMMATURE GRANS 0.6 % Normal 0.0-1.0 [facility] Comment on above: Performed By: #### 5 3 ####[address] Lymphocytes (Bld) [#/Vol] 1.1 10*3/uL Low 1.2-4.0 [facility] Comment on above: Performed By: #### 5 3 ####[address] Lymphocytes/100 WBC (Bld) 15.9 % Low 20.0-45.0 [facility] Comment on above: Performed By: #### 5 0103 ####[address] MCH (RBC) [Entitic mass] 28.8 pg Normal 27.0-33.0 [facility] Comment on above: Performed By: #### 5 0103 ####[address] MCHC (RBC) [Mass/Vol] 31.7 g/dL Low 32.0-35.0 [facility] Comment on above: Performed By: #### 5 3 ####[address] MCV (RBC) [Entitic vol] 90.8 fL Normal 82.0-98.0 [facility] Comment on above: Performed By: #### 5 102 ####[facility] [facility] [place] [address], [facility] Monocytes (Bld) [#/Vol] 0.8 10*3/uL Normal 0.1-1.0 [facility] Comment on above: Performed By: #### 5 3 ####[facility]3000 [facility].[address] MONOS 11.2 % Normal 5.0-12.0 [facility] Comment on above: Performed By: #### 5 102 ####[facility]3000 [facility].[address] Neutrophils/100 WBC (Bld) 71.0 % Normal 40.0-72.0 [facility] Comment on above: Performed By: #### 5 102 ####[facility] Nucleated RBC/100 WBC (Bld) [Ratio] 0 % Normal 0-0 [facility] Comment on above: Performed By: #### 5 102 ####[facility]3000 [facility].[address] PLAT CNT 376 10*3/uL Normal 150-400 [facility] Comment on above: Performed By: #### 5 102 ####[facility] [facility].[address] RBC (Bld) [#/Vol] 3.58 10*6/uL Low 4.20-5.70 [facility] Comment on above: Performed By: #### 5 3 ####[facility] [facility] [place] [address], [facility] WBC (Bld) [#/Vol] 7.03 10*3/uL Normal 4.00-10.60 [facility] Comment on above: Performed By: #### 5 0103 ####[facility] [place] [address], [facility] COMP METABOLIC PANELon 05-15 Albumin [Mass/Vol] 3.2 g/dL Low 3.5-5.7 [facility] Comment on above: Performed By: #### 4 1000, 17842, 12514, 32741 ####[facility] [place] [address], [place] ALKALINE PHOSPH 84 IU/L Normal 34-104 [facility] Comment on above: Performed By: #### 4 1000, 49099, 76052, 24507 ####[facility] [place] [address], [place] ALT [Catalytic activity/Vol] 11 U/L Normal 7-52 [facility] Comment on above: Performed By: #### 4 1000, 44957, 56691, 03380 ####[facility] [place] [address], [place] AST [Catalytic activity/Vol] 12 U/L Low 13-39 [facility] Comment on above: Performed By: #### 4 1000, 39638, 94413, 66436 ####[facility] [place] [address], [place] Bilirubin [Mass/Vol] 0.9 mg/dL Normal 0.3-1.0 [facility] Comment on above: Performed By: #### 4 1000, 87478, 37520, 04454 ####[facility] [place] [address], [place] Calcium [Mass/Vol] 8.3 mg/dL Low 8.6-10.3 [facility] Comment on above: Performed By: #### 4 1000, 48442, 63731, 56912 ####[facility] [place] [address], [place] Chloride [Moles/Vol] 101 mmol/L Normal 98-107 [facility] Comment on above: Performed By: #### 4 1000, 23818, 57718, 63481 ####[facility] [place] [address], [facility] CO2 [Moles/Vol] 30 mmol/L Normal 21-31 [facility] Comment on above: Performed By: #### 4 1000, 48712, 51474, 54756 ####[facility] [place] [address], [facility] Creatinine [Mass/Vol] 0.92 mg/dL Normal 0.70-1.30 [facility] Comment on above: Performed By: #### 4 1000, 52460, 56629, 73507 ####[facility] [place] [address], [facility] GFR/1.73 sq M.predicted among blacks MDRD (S/P/Bld) [Vol rate/Area] mL/min/{1.73_m2} Normal >60 [facility] Comment on above: Result Comment: Calc ulation may not be valid for patients over 70 years Performed By: #### 4 1000, 36439, 85522, 77237 ####[facility] [place] [address], [place] GFR/1.73 sq M.predicted among non-blacks MDRD (S/P/Bld) [Vol rate/Area] mL/min/{1.73_m2} Normal >60 [facility] Comment on above: Result Comment: Calc ulation may not be valid for patients over 70 years Performed By: #### 4 1000, 82164, 58012, 80083 ####[facility] [place] [address], [place] Glucose [Mass/Vol] 138 mg/dL High 70-100 [facility] Comment on above: Performed By: #### 4 1000, 52563, 27443, 81878 ####[facility] [place] [address], [place] Potassium [Moles/Vol] 4.1 mmol/L Normal 3.5-5.1 [facility] Comment on above: Performed By: #### 4 1000, 40641, 02187, 50871 ####[facility] [place] [address], [place] Protein [Mass/Vol] 7.4 g/dL Normal 6.0-8.3 [facility] Comment on above: Performed By: #### 4 1000, 46204, 42735, 29466 ####[facility] [place] [address], [place] Sodium [Moles/Vol] 136 mmol/L Normal 136-145 [facility] Comment on above: Performed By: #### 4 1000, 69002, 90802, 13236 ####[facility] [place] [address], [place] Urea nitrogen [Mass/Vol] 8 mg/dL Normal 7-25 [facility] Comment on above: Performed By: #### 4 1000, 50697, 65694, 59818 ####[facility] [place] [address], [place] LACTATE BLOODon 05-15-2021 Lactate [Moles/Vol] 0.7 mmol/L Normal .5-2.2 [facility] Comment on above: Order Comment: Repea t Lactate in 4 hours Performed By: #### 1 0054 ####[facility] [place] [address], [place] MAGNESIUM BLOODon 05-15-2021 Magnesium [Mass/Vol] 2.0 mg/dL Normal 1.9-2.7 [facility] Comment on above: Performed By: #### 4 1000, 08831, 85946, 93841 ####[facility] [place] [address], [place] PHOSPHORUS BLOODon Phosphate [Mass/Vol] 6.0 mg/dL High 2.5-5.0 [facility] Comment on above: Performed By: #### 4 1000, 69800, 74984, 16785 ####[facility] [place] [address], [facility] POC GLUCOSE LABon 05-15-2021 Glucose [Mass/Vol] 225 mg/dL High 70-100 [facility] Comment on above: Performed By: #### 8 5499 ####[facility] [facility] POC SARS COV2 ANTIGEN NEGATI VEon 05-15-2021 POC SARS COV2 ANTIGEN NEG Negative Normal NEGATIVE [facility] Comment on above: Result Comment: [...] of clinicalsigns and symptoms consistent with COVID-19.[employer] COVID-19 Ag Card is a lateral flow immunoassay intended forthe qualitative detection of nucleocapsid protein antigen [id number] in direct nasal swabs from individuals within [...] Certificate ofAccreditation. Performed By: #### 3 1977 ####[facility] [place] [address], [facility] PORTABLE CHEST 1 VIEWon 04-25 PORTABLE CHEST 1 VIEW Normal [facility] Comment on above: Order Comment: Evalu ate for Infiltrates, hypoxia, infected sternotomy site PROTHROMBIN TIMEon INR Coag (PPP) [Relative time] 1.07 {INR} Normal 0.91-1.16 [facility] Comment on above: Result Comment: ACCC P RECOMMENDED INR FOR WARFARIN THERAPY CONDITION INRPROPHYLAXIS OF VENOUS THROMBOSIS 2-3(HIGH-RISK SURGERY)TREATMENT OF VENOUS THROMBOSIS 2-3TREATMENT OF PULMONARY EMBOLISM 2-3PREVENTION OF SYSTEMIC EMBOLISM: 2-3 ACUTE MYOCARDIAL INFARCTION TISSUE HEART VALVES VALVULAR HEART DISEASE ATRIAL FIBRILLATION RECURRENT SYSTEMIC EMBOLISMMECHANICAL HEART VALVE 2.5-3.5 FROM: ORAL ANTICOAGULANTS. MECHANISM OF ACTION, CLINICALEFFECTIVENESS, AND OPTIMAL THERAPEUTIC RANGE. [id number]. Performed By: #### 5 7307, 30234 ####[facility] [place] [address], [facility] PT Coag (PPP) [Time] 13.9 s Normal 12.3-14.8 [facility] Comment on above: Result Comment: ALL RESULTS MUST BE INTERPRETED WITH RESPECT TO BLOOD DRAWING ARTIFACTOR DILUTION ERROR OF ANTICOAGULANT AT THE TIME OF SAMPLING. Performed By: #### 5 7307, 65648 ####[facility] [place] [address], [facility] TROPONIN-Ion 05-15-2021 Troponin I.cardiac [Mass/Vol] 0.01 ng/mL Normal 0.00-0.04 [facility] Comment on above: Result Comment: REFE RENCE RANGES: 0.00 - 0.04 ng/ml NORMAL 0.05 - 0.50 ng/ml INDETERMINATE > 0.50 ng/ml CONSISTENT WITH AN M.I. Performed By: #### 4 1000, 31145, 67186, 46162 ####[facility] [place] [address], [place] TYPE AND SCREENon 05-15-2021 ABO INTERPRETATION O Normal [facility] Comment on above: Performed By: #### 6 2586 ####[facility] [place] [address], [place] RH INTERPRETATION Positive Normal [facility] Comment on above: Performed By: #### 6 2586 ####[facility] [place] [address], [place] POC GLUCOSE LABon 04-15-2021 Glucose [Mass/Vol] 143 mg/dL High 70-100 [facility] Comment on above: Performed By: #### 8 5499 ####[facility] [place] [address], [place] Glucose [Mass/Vol] 241 mg/dL High 70-100 [facility] Comment on above: Performed By: #### 8 5499 ####[facility] [place] [address], [place] Glucose [Mass/Vol] 121 mg/dL High 70-100 [facility] Comment on above: Performed By: #### 8 5499 ####[facility] [place] [address], [place] POC SARS COV2 ANTIGEN NEGATI VEon 04-15-2021 POC SARS COV2 ANTIGEN NEG Negative Normal NEGATIVE [facility] Comment on above: Result Comment: [...] of clinicalsigns and symptoms consistent with COVID-19.[employer] COVID-19 Ag Card is a lateral flow immunoassay intended forthe qualitative detection of nucleocapsid protein antigen [id number] in direct nasal swabs from individuals within [...] Certificate ofAccreditation. Performed By: #### 3 1977 ####[place] [address] BASIC METABOLIC PANELon 08-2 Calcium [Mass/Vol] 8.7 mg/dL Normal 8.6-10.3 [facility] Comment on above: Order Comment: No: D o not add to previous draw Performed By: #### 0 0071, 72507 ####[facility] [facility] [place] [address], [facility] Chloride [Moles/Vol] 95 mmol/L Low 98-107 [facility] Comment on above: Order Comment: No: D o not add to previous draw Performed By: #### 0 0071, 17013 ####[facility] [facility] [place] [address], [facility] CO2 [Moles/Vol] 27 mmol/L Normal 21-31 [facility] Comment on above: Order Comment: No: D o not add to previous draw Performed By: #### 0 0071, 56770 ####[place] [address] [place] [address], [place] Creatinine [Mass/Vol] 0.80 mg/dL Normal 0.70-1.30 [facility] Comment on above: Order Comment: No: D o not add to previous draw Performed By: #### 0 0071, 10093 ####[facility] [place] [address], [facility] GFR/1.73 sq M.predicted among blacks MDRD (S/P/Bld) [Vol rate/Area] mL/min/{1.73_m2} Normal >60 [facility] Comment on above: Order Comment: No: D o not add to previous draw Result Comment: Calc ulation may not be valid for patients over 70 years Performed By: #### 0 0071, 65085 ####[facility] [place] [address], [facility] GFR/1.73 sq M.predicted among non-blacks MDRD (S/P/Bld) [Vol rate/Area] mL/min/{1.73_m2} Normal >60 [facility] Comment on above: Order Comment: No: D o not add to previous draw Result Comment: Calc ulation may not be valid for patients over 70 years Performed By: #### 0 0071, 13800 ####[facility] [place] [address], [facility] Glucose [Mass/Vol] 108 mg/dL High 70-100 [facility] Comment on above: Order Comment: No: D o not add to previous draw Performed By: #### 0 0071, 78469 ####[facility] [place] [address], [place] Potassium [Moles/Vol] 3.6 mmol/L Normal 3.5-5.1 [facility] Comment on above: Order Comment: No: D o not add to previous draw Performed By: #### 0 0071, 81476 ####[facility] [place] [address], [place] Sodium [Moles/Vol] 132 mmol/L Low 136-145 [facility] Comment on above: Order Comment: No: D o not add to previous draw Performed By: #### 0 0071, 95290 ####[facility] [facility].[address] Urea nitrogen [Mass/Vol] 38 mg/dL High 7-25 [facility] Comment on above: Order Comment: No: D o not add to previous draw Performed By: #### 0 0071, 22782 ####[facility] [facility].[address] CBC COMPLETE BLOOD COUNTon 04-14-2021 Erythrocyte distribution width (RBC) [Ratio] 14.1 % Normal 11.5-15.0 [facility] Comment on above: Order Comment: No: D o not add to previous draw Performed By: #### 5 0608 ####[facility] [facility].[address] Hematocrit (Bld) [Volume fraction] 33.5 % Low 39.0-50.0 [facility] Comment on above: Order Comment: No: D o not add to previous draw Performed By: #### 5 0608 ####[address] Hemoglobin (Bld) [Mass/Vol] 11.3 g/dL Low 13.0-17.0 [facility] Comment on above: Order Comment: No: D o not add to previous draw Performed By: #### 5 0608 ####[facility] [facility] [place] [address], [facility] MCH (RBC) [Entitic mass] 30.2 pg Normal 27.0-33.0 [facility] Comment on above: Order Comment: No: D o not add to previous draw Performed By: #### 5 0608 ####[facility] [place] [address].[place], [place] [address] MCHC (RBC) [Mass/Vol] 33.7 g/dL Normal 32.0-35.0 [facility] Comment on above: Order Comment: No: D o not add to previous draw Performed By: #### 5 0608 ####[facility] [facility].[address] MCV (RBC) [Entitic vol] 89.6 fL Normal 82.0-98.0 [facility] Comment on above: Order Comment: No: D o not add to previous draw Performed By: #### 5 0608 ####[facility] [facility].[address] Nucleated RBC/100 WBC (Bld) [Ratio] 0 % Normal 0-0 [facility] Comment on above: Order Comment: No: D o not add to previous draw Performed By: #### 5 0608 ####[facility] [facility].[address] PLAT CNT 314 10*3/uL Normal 150-400 [facility] Comment on above: Order Comment: No: D o not add to previous draw Performed By: #### 5 0608 ####[address] RBC (Bld) [#/Vol] 3.74 10*6/uL Low 4.20-5.70 [facility] Comment on above: Order Comment: No: D o not add to previous draw Performed By: #### 5 0608 ####[facility] [facility] [place] [address], [facility] WBC (Bld) [#/Vol] 10.84 10*3/uL High 4.00-10.60 [facility] Comment on above: Order Comment: No: D o not add to previous draw Performed By: #### 5 0608 ####[facility] [facility] [place] [address], [place] MAGNESIUM BLOODon 04-14-2021 Magnesium [Mass/Vol] 1.9 mg/dL Normal 1.9-2.7 [facility] Comment on above: Order Comment: No: D o not add to previous draw Performed By: #### 0 0071, 92219 ####[facility] [place] [address], [place] POC GLUCOSE LABon 04-14-2021 Glucose [Mass/Vol] 168 mg/dL High 70-100 [facility] Comment on above: Performed By: #### 8 5499 ####[facility] [place] [address], [place] Glucose [Mass/Vol] 133 mg/dL High 70-100 [facility] Comment on above: Performed By: #### 8 5499 ####[facility] [place] [address], [place] Glucose [Mass/Vol] 167 mg/dL High 70-100 [facility] Comment on above: Performed By: #### 8 5499 ####[facility] [place] [address], [place] Glucose [Mass/Vol] 146 mg/dL High 70-100 [facility] Comment on above: Performed By: #### 8 5499 ####[facility] [place] [address], [place] Glucose [Mass/Vol] 152 mg/dL High 70-100 [facility] Comment on above: Performed By: #### 8 5499 ####[facility] [place] [address], [place] PORTABLE CHEST 1 VIEWon 03-25 PORTABLE CHEST 1 VIEW Normal [facility] Comment on above: Order Comment: evalu ate Atelectasis BASIC METABOLIC PANELon 03-25 Calcium [Mass/Vol] 9.1 mg/dL Normal 8.6-10.3 [facility] Comment on above: Order Comment: No: D o not add to previous draw Performed By: #### 1 0, [id number] ####[facility] [place] [address], [facility] Chloride [Moles/Vol] 94 mmol/L Low 98-107 [facility] Comment on above: Order Comment: No: D o not add to previous draw Performed By: #### 1 0, 94190 ####[facility] [place] [address], [facility] CO2 [Moles/Vol] 27 mmol/L Normal 21-31 [facility] Comment on above: Order Comment: No: D o not add to previous draw Performed By: #### 1 0, 46769 ####[facility] [facility] [place] [address], [facility] Creatinine [Mass/Vol] 0.87 mg/dL Normal 0.70-1.30 [facility] Comment on above: Order Comment: No: D o not add to previous draw Performed By: #### 1 69, 95514 ####[facility] [place] [address], [facility] GFR/1.73 sq M.predicted among blacks MDRD (S/P/Bld) [Vol rate/Area] mL/min/{1.73_m2} Normal >60 [facility] Comment on above: Order Comment: No: D o not add to previous draw Result Comment: Calc ulation may not be valid for patients over 70 years Performed By: #### 1 69, 19928 ####[facility] [place] [address], [facility] GFR/1.73 sq M.predicted among non-blacks MDRD (S/P/Bld) [Vol rate/Area] mL/min/{1.73_m2} Normal >60 [facility] Comment on above: Order Comment: No: D o not add to previous draw Result Comment: Calc ulation may not be valid for patients over 70 years Performed By: #### 1 69, 46248 ####[facility] [place] [address], [facility] Glucose [Mass/Vol] 125 mg/dL High 70-100 [facility] Comment on above: Order Comment: No: D o not add to previous draw Performed By: #### 1 69, 07515 ####[facility] [place] [address], [facility] Potassium [Moles/Vol] 3.2 mmol/L Low 3.5-5.1 [facility] Comment on above: Order Comment: No: D o not add to previous draw Performed By: #### 1 69, 34199 ####[facility] [place] [address], [facility] Sodium [Moles/Vol] 132 mmol/L Low 136-145 [facility] Comment on above: Order Comment: No: D o not add to previous draw Performed By: #### 1 69, 68565 ####[facility] [place] [address], [facility] Urea nitrogen [Mass/Vol] 27 mg/dL High 7-25 [facility] Comment on above: Order Comment: No: D o not add to previous draw Performed By: #### 1 69, 95446 ####[facility] CBC COMPLETE BLOOD COUNTon 0 - Erythrocyte distribution width (RBC) [Ratio] 14.2 % Normal 11.5-15.0 [facility] Comment on above: Order Comment: No: D o not add to previous draw Performed By: #### 5 0608 ####[facility] [place] [address], [facility] Hematocrit (Bld) [Volume fraction] 35.2 % Low 39.0-50.0 [facility] Comment on above: Order Comment: No: D o not add to previous draw Performed By: #### 5 0608 ####[facility] Hemoglobin (Bld) [Mass/Vol] 11.9 g/dL Low 13.0-17.0 [facility] Comment on above: Order Comment: No: D o not add to previous draw Performed By: #### 5 0608 ####[address] MCH (RBC) [Entitic mass] 30.6 pg Normal 27.0-33.0 [facility] Comment on above: Order Comment: No: D o not add to previous draw Performed By: #### 5 0608 ####[address] MCHC (RBC) [Mass/Vol] 33.8 g/dL Normal 32.0-35.0 [facility] Comment on above: Order Comment: No: D o not add to previous draw Performed By: #### 5 0608 ####[address] MCV (RBC) [Entitic vol] 90.5 fL Normal 82.0-98.0 [facility] Comment on above: Order Comment: No: D o not add to previous draw Performed By: #### 5 0608 ####[address] Nucleated RBC/100 WBC (Bld) [Ratio] 0 % Normal 0-0 [facility] Comment on above: Order Comment: No: D o not add to previous draw Performed By: #### 5 0608 ####[address] PLAT CNT 285 10*3/uL Normal 150-400 [facility] Comment on above: Order Comment: No: D o not add to previous draw Performed By: #### 5 0608 ####[facility] [place] [address], [facility] RBC (Bld) [#/Vol] 3.89 10*6/uL Low 4.20-5.70 [facility] Comment on above: Order Comment: No: D o not add to previous draw Performed By: #### 5 0608 ####[facility] [place] [address], [facility] WBC (Bld) [#/Vol] 9.92 10*3/uL Normal 4.00-10.60 [facility] Comment on above: Order Comment: No: D o not add to previous draw Performed By: #### 5 0608 ####[facility] [place] [address], [facility] MAGNESIUM BLOODon 04-13-2021 Magnesium [Mass/Vol] 1.9 mg/dL Normal 1.9-2.7 [facility] Comment on above: Order Comment: No: D o not add to previous draw Performed By: #### 1 0070, 68540 ####[facility] [place] [address], [facility] POC GLUCOSE LABon 04-13-2021 Glucose [Mass/Vol] 106 mg/dL High 70-100 [facility] Comment on above: Performed By: #### 8 5499 ####[facility] [place] [address], [facility] Glucose [Mass/Vol] 185 mg/dL High 70-100 [facility] Comment on above: Performed By: #### 8 5499 ####[facility] [id number], [place] Glucose [Mass/Vol] 136 mg/dL High 70-100 [facility] Comment on above: Performed By: #### 8 5499 ####[facility] [place] [address], [facility] PORTABLE CHEST 1 VIEWon 03-25 PORTABLE CHEST 1 VIEW Normal [facility] Comment on above: Order Comment: evalu ate for Atelectasis BASIC METABOLIC PANELon 03-25 Calcium [Mass/Vol] 8.3 mg/dL Low 8.6-10.3 [facility] Comment on above: Order Comment: No: D o not add to previous draw Performed By: #### 1 69, 21365 ####[facility] [place] [address], [facility] Chloride [Moles/Vol] 102 mmol/L Normal 98-107 [facility] Comment on above: Order Comment: No: D o not add to previous draw Performed By: #### 1 69, 49321 ####[facility] [place] [address], [facility] CO2 [Moles/Vol] 25 mmol/L Normal 21-31 [facility] Comment on above: Order Comment: No: D o not add to previous draw Performed By: #### 1 69, 33453 ####[facility] [place] [address], [facility] Creatinine [Mass/Vol] 0.67 mg/dL Low 0.70-1.30 [facility] Comment on above: Order Comment: No: D o not add to previous draw Performed By: #### 1 69, 21301 ####[facility] [place] [address], [place] GFR/1.73 sq M.predicted among blacks MDRD (S/P/Bld) [Vol rate/Area] mL/min/{1.73_m2} Normal >60 [facility] Comment on above: Order Comment: No: D o not add to previous draw Result Comment: Calc ulation may not be valid for patients over 70 years Performed By: #### 1 69, 05717 ####[facility] [place] [address], [facility] GFR/1.73 sq M.predicted among non-blacks MDRD (S/P/Bld) [Vol rate/Area] mL/min/{1.73_m2} Normal >60 [facility] Comment on above: Order Comment: No: D o not add to previous draw Result Comment: Calc ulation may not be valid for patients over 70 years Performed By: #### 1 69, 17209 ####[facility] [facility].[address] Glucose [Mass/Vol] 116 mg/dL High 70-100 [facility] Comment on above: Order Comment: No: D o not add to previous draw Performed By: #### 1 69, 24521 ####[place] [address] [facility] [place] [address], [facility] Potassium [Moles/Vol] 4.0 mmol/L Normal 3.5-5.1 [facility] Comment on above: Order Comment: No: D o not add to previous draw Performed By: #### 1 69, 50907 ####[place] [address] [facility] [place] [address], [facility] Sodium [Moles/Vol] 134 mmol/L Low 136-145 [facility] Comment on above: Order Comment: No: D o not add to previous draw Performed By: #### 1 69, 66215 ####[place] [address] [facility] [place] [address], [facility] Urea nitrogen [Mass/Vol] 22 mg/dL Normal 7-25 [facility] Comment on above: Order Comment: No: D o not add to previous draw Performed By: #### 1 69, 66496 ####[place] [address] [facility] [place] [address], [facility] CBC COMPLETE BLOOD COUNTon 0 8- Erythrocyte distribution width (RBC) [Ratio] 14.6 % Normal 11.5-15.0 [facility] Comment on above: Order Comment: No: D o not add to previous draw Performed By: #### 5 0608 ####[facility] [facility].[address] Hematocrit (Bld) [Volume fraction] 33.1 % Low 39.0-50.0 [facility] Comment on above: Order Comment: No: D o not add to previous draw Performed By: #### 5 0608 ####[facility] Hemoglobin (Bld) [Mass/Vol] 10.6 g/dL Low 13.0-17.0 [facility] Comment on above: Order Comment: No: D o not add to previous draw Performed By: #### 5 0608 ####[address] MCH (RBC) [Entitic mass] 30.0 pg Normal 27.0-33.0 [facility] Comment on above: Order Comment: No: D o not add to previous draw Performed By: #### 5 0608 ####[place] [address] MCHC (RBC) [Mass/Vol] 32.0 g/dL Normal 32.0-35.0 [facility] Comment on above: Order Comment: No: D o not add to previous draw Performed By: #### 5 0608 ####[facility] [place] [address] MCV (RBC) [Entitic vol] 93.8 fL Normal 82.0-98.0 [facility] Comment on above: Order Comment: No: D o not add to previous draw Performed By: #### 5 0608 ####[address] Nucleated RBC/100 WBC (Bld) [Ratio] 0 % Normal 0-0 [facility] Comment on above: Order Comment: No: D o not add to previous draw Performed By: #### 5 0608 ####[facility] [place] [address], [facility] PLAT CNT 213 10*3/uL Normal 150-400 [facility] Comment on above: Order Comment: No: D o not add to previous draw Performed By: #### 5 0608 ####[facility] [place] [address], [facility] RBC (Bld) [#/Vol] 3.53 10*6/uL Low 4.20-5.70 [facility] Comment on above: Order Comment: No: D o not add to previous draw Performed By: #### 5 0608 ####[facility] [place] [address], [facility] WBC (Bld) [#/Vol] 7.64 10*3/uL Normal 4.00-10.60 [facility] Comment on above: Order Comment: No: D o not add to previous draw Performed By: #### 5 0608 ####[facility] [place] [address], [facility] MAGNESIUM BLOODon 04-12-2021 Magnesium [Mass/Vol] 1.9 mg/dL Normal 1.9-2.7 [facility] Comment on above: Order Comment: No: D o not add to previous draw Performed By: #### 1 0070, 54611 ####[facility] [place] [address], [facility] POC GLUCOSE LABon 04-12-2021 Glucose [Mass/Vol] 126 mg/dL High 70-100 [facility] Comment on above: Performed By: #### 8 5499 ####[facility] [facility] [place] [address], [facility] Glucose [Mass/Vol] 131 mg/dL High 70-100 [facility] Comment on above: Performed By: #### 8 5499 ####[facility] [facility].[address] Glucose [Mass/Vol] 167 mg/dL High 70-100 [facility] Comment on above: Performed By: #### 8 5499 ####[facility] [facility], [place] [address] [place] [address] POC SARS COV2 ANTIGEN NEGATI VEon 04-12-2021 POC SARS COV2 ANTIGEN NEG Negative Normal NEGATIVE [facility] Comment on above: Result Comment: [...] of clinicalsigns and symptoms consistent with COVID-19.The [employer] COVID-19 Ag Card is a lateral flow immunoassay intended forthe qualitative detection of nucleocapsid protein antigen [id number] in direct nasal swabs from individuals within [...] Certificate ofAccreditation. Performed By: #### 3 1977 ####[facility] POC SARS COV2 ANTIGEN NEG Negative Normal NEGATIVE [facility] Comment on above: Result Comment: [...] of clinicalsigns and symptoms consistent with COVID-19.The [employer] COVID-19 Ag Card is a lateral flow immunoassay intended forthe qualitative detection of nucleocapsid protein antigen [id number] in direct nasal swabs from individuals within [...] Certificate ofAccreditation. Performed By: #### 3 1977 ####[facility] PORTABLE CHEST 1 VIEWon 03-25 PORTABLE CHEST 1 VIEW Normal [facility] Comment on above: Order Comment: evalu ate for Atelectasis BASIC METABOLIC PANELon 03-24 Calcium [Mass/Vol] 7.9 mg/dL Low 8.6-10.3 [facility] Comment on above: Order Comment: No: D o not add to previous draw Performed By: #### 4 999, 13982, 13244 ####[facility] [facility] [place] [address], [facility] Chloride [Moles/Vol] 100 mmol/L Normal 98-107 [facility] Comment on above: Order Comment: No: D o not add to previous draw Performed By: #### 4 999, 10813, 63947 ####[facility] [facility] [place] [address], [facility] CO2 [Moles/Vol] 27 mmol/L Normal 21-31 [facility] Comment on above: Order Comment: No: D o not add to previous draw Performed By: #### 4 999, 23863, 90883 ####[facility] [place] [address], [facility] Creatinine [Mass/Vol] 0.80 mg/dL Normal 0.70-1.30 [facility] Comment on above: Order Comment: No: D o not add to previous draw Performed By: #### 4 999, 81686, 75431 ####[facility] [place] [address], [facility] GFR/1.73 sq M.predicted among blacks MDRD (S/P/Bld) [Vol rate/Area] mL/min/{1.73_m2} Normal >60 [facility] Comment on above: Order Comment: No: D o not add to previous draw Result Comment: Calc ulation may not be valid for patients over 70 years Performed By: #### 4 999, 77362, 27421 ####[facility] [facility] [place] [address], [facility] GFR/1.73 sq M.predicted among non-blacks MDRD (S/P/Bld) [Vol rate/Area] mL/min/{1.73_m2} Normal >60 [facility] Comment on above: Order Comment: No: D o not add to previous draw Result Comment: Calc ulation may not be valid for patients over 70 years Performed By: #### 4 999, 88389, 87474 ####[facility] [facility] [place] [address], [facility] Glucose [Mass/Vol] 135 mg/dL High 70-100 [facility] Comment on above: Order Comment: No: D o not add to previous draw Performed By: #### 4 999, 42730, 00296 ####[facility] [place] [address], [facility] Potassium [Moles/Vol] 3.4 mmol/L Low 3.5-5.1 [facility] Comment on above: Order Comment: No: D o not add to previous draw Performed By: #### 4 1000, 01569, 25477 ####[facility] [facility].[address] Sodium [Moles/Vol] 134 mmol/L Low 136-145 [facility] Comment on above: Order Comment: No: D o not add to previous draw Performed By: #### 4 1000, 96375, 90545 ####[facility] [facility].[address] Urea nitrogen [Mass/Vol] 21 mg/dL Normal 7-25 [facility] Comment on above: Order Comment: No: D o not add to previous draw Performed By: #### 4 1000, 88432, 04289 ####[facility] CBC COMPLETE BLOOD COUNTon 0 - Erythrocyte distribution width (RBC) [Ratio] 15.0 % Normal 11.5-15.0 [facility] Comment on above: Order Comment: No: D o not add to previous drawNurse draw Performed By: #### 5 0608 ####[place] [address] Hematocrit (Bld) [Volume fraction] 32.0 % Low 39.0-50.0 [facility] Comment on above: Order Comment: No: D o not add to previous drawNurse draw Performed By: #### 5 0608 ####[facility] [facility].[address] Hemoglobin (Bld) [Mass/Vol] 10.6 g/dL Low 13.0-17.0 [facility] Comment on above: Order Comment: No: D o not add to previous drawNurse draw Performed By: #### 5 0608 ####[facility] [place] [address], [facility] MCH (RBC) [Entitic mass] 30.5 pg Normal 27.0-33.0 [facility] Comment on above: Order Comment: No: D o not add to previous drawNurse draw Performed By: #### 5 0608 ####[facility] MCHC (RBC) [Mass/Vol] 33.1 g/dL Normal 32.0-35.0 [facility] Comment on above: Order Comment: No: D o not add to previous drawNurse draw Performed By: #### 5 0608 ####[facility] [facility].[address] MCV (RBC) [Entitic vol] 92.2 fL Normal 82.0-98.0 [facility] Comment on above: Order Comment: No: D o not add to previous drawNurse draw Performed By: #### 5 0608 ####[facility] [facility].[address] Nucleated RBC/100 WBC (Bld) [Ratio] 0 % Normal 0-0 [facility] Comment on above: Order Comment: No: D o not add to previous drawNurse draw Performed By: #### 5 0608 ####[facility] [place] [address], [facility] PLAT CNT 182 10*3/uL Normal 150-400 [facility] Comment on above: Order Comment: No: D o not add to previous drawNurse draw Performed By: #### 5 0608 ####[facility] [facility] [place] [address], [facility] RBC (Bld) [#/Vol] 3.47 10*6/uL Low 4.20-5.70 [facility] Comment on above: Order Comment: No: D o not add to previous drawNurse draw Performed By: #### 5 0608 ####[facility] [place] [address].[place] [address], [facility] WBC (Bld) [#/Vol] 9.87 10*3/uL Normal 4.00-10.60 [facility] Comment on above: Order Comment: No: D o not add to previous drawNurse draw Performed By: #### 5 0608 ####[facility] [place] [address], [place] MAGNESIUM BLOODon 04-11-2021 Magnesium [Mass/Vol] 2.1 mg/dL Normal 1.9-2.7 [facility] Comment on above: Order Comment: No: D o not add to previous draw Performed By: #### 4 1000, 04123, 77109 ####[facility] [place] [address], [place] PHOSPHORUS BLOODon Phosphate [Mass/Vol] 3.7 mg/dL Normal 2.5-5.0 [facility] Comment on above: Order Comment: No: D o not add to previous draw Performed By: #### 4 1000, 31722, 16101 ####[facility] [place] [address], [place] POC GLUCOSE LABon 04-11-2021 Glucose [Mass/Vol] 137 mg/dL High 70-100 [facility] Comment on above: Performed By: #### 8 5499 ####[facility] [place] [address], [place] Glucose [Mass/Vol] 182 mg/dL High 70-100 [facility] Comment on above: Performed By: #### 8 5499 ####[facility] [place] [address], [place] Glucose [Mass/Vol] 171 mg/dL High 70-100 [facility] Comment on above: Performed By: #### 8 5499 ####[facility] [place] [address], [place] Glucose [Mass/Vol] 142 mg/dL High 70-100 [facility] Comment on above: Performed By: #### 8 5499 ####[facility] [place] [address], [facility] PORTABLE CHEST 1 VIEWon 03-24 PORTABLE CHEST 1 VIEW Normal [facility] Comment on above: Order Comment: Evalu ate for Pneumothorax PORTABLE CHEST 1 VIEW Normal [facility] Comment on above: Order Comment: evalu ate for Pneumothorax BASIC METABOLIC PANELon 03-24 Calcium [Mass/Vol] 8.2 mg/dL Low 8.6-10.3 [facility] Comment on above: Order Comment: No: D o not add to previous drawNurse draw rn barbara Performed By: #### 4 1000, 13124, 50149 ####[facility] [place] [address], [facility] Chloride [Moles/Vol] 104 mmol/L Normal 98-107 [facility] Comment on above: Order Comment: No: D o not add to previous drawNurse draw rn barbara Performed By: #### 4 999, 50918, 28140 ####[facility] [place] [address], [facility] CO2 [Moles/Vol] 27 mmol/L Normal 21-31 [facility] Comment on above: Order Comment: No: D o not add to previous drawNurse draw rn barbara Performed By: #### 4 1000, 43457, 58386 ####[facility] [place] [address], [facility] Creatinine [Mass/Vol] 0.76 mg/dL Normal 0.70-1.30 [facility] Comment on above: Order Comment: No: D o not add to previous drawNurse draw rn barbara Performed By: #### 4 1000, 82953, 43983 ####[facility] [place] [address], [facility] GFR/1.73 sq M.predicted among blacks MDRD (S/P/Bld) [Vol rate/Area] mL/min/{1.73_m2} Normal >60 [facility] Comment on above: Order Comment: No: D o not add to previous drawNurse draw rn barbara Result Comment: Calc ulation may not be valid for patients over 70 years Performed By: #### 4 1000, 99633, 38500 ####[facility] [place] [address], [facility] GFR/1.73 sq M.predicted among non-blacks MDRD (S/P/Bld) [Vol rate/Area] mL/min/{1.73_m2} Normal >60 [facility] Comment on above: Order Comment: No: D o not add to previous drawNurse draw rn barbara Result Comment: Calc ulation may not be valid for patients over 70 years Performed By: #### 4 1000, 86244, 85568 ####[facility] [place] [address], [facility] Glucose [Mass/Vol] 109 mg/dL High 70-100 [facility] Comment on above: Order Comment: No: D o not add to previous drawNurse draw rn barbara Performed By: #### 4 999, 62220, 09133 ####[facility] [place] [address], [facility] Potassium [Moles/Vol] 4.0 mmol/L Normal 3.5-5.1 [facility] Comment on above: Order Comment: No: D o not add to previous drawNurse draw rn barbara Performed By: #### 4 999, 02831, 55590 ####[facility] [place] [address], [place] Sodium [Moles/Vol] 135 mmol/L Low 136-145 [facility] Comment on above: Order Comment: No: D o not add to previous drawNurse draw rn barbara Performed By: #### 4 999, 94104, 86265 ####[facility] [place] [address], [place] Urea nitrogen [Mass/Vol] 15 mg/dL Normal 7-25 [facility] Comment on above: Order Comment: No: D o not add to previous drawNurse draw rn barbara Performed By: #### 4 1000, 04950, 17537 ####[facility] CBC COMPLETE BLOOD COUNTon 0 - Erythrocyte distribution width (RBC) [Ratio] 14.7 % Normal 11.5-15.0 [facility] Comment on above: Order Comment: No: D o not add to previous drawNurse draw rn barbara Performed By: #### 5 0608 ####[facility] Hematocrit (Bld) [Volume fraction] 32.7 % Low 39.0-50.0 [facility] Comment on above: Order Comment: No: D o not add to previous drawNurse draw rn barbara Performed By: #### 5 0608 ####[facility] Hemoglobin (Bld) [Mass/Vol] 10.7 g/dL Low 13.0-17.0 [facility] Comment on above: Order Comment: No: D o not add to previous drawNurse draw rn barbara Performed By: #### 5 0608 ####[facility] MCH (RBC) [Entitic mass] 30.1 pg Normal 27.0-33.0 [facility] Comment on above: Order Comment: No: D o not add to previous drawNurse draw rn barbara Performed By: #### 5 0608 ####[facility] MCHC (RBC) [Mass/Vol] 32.7 g/dL Normal 32.0-35.0 [facility] Comment on above: Order Comment: No: D o not add to previous drawNurse draw rn barbara Performed By: #### 5 0608 ####[facility] MCV (RBC) [Entitic vol] 92.1 fL Normal 82.0-98.0 [facility] Comment on above: Order Comment: No: D o not add to previous drawNurse draw rn barbara Performed By: #### 5 0608 ####[facility]3000 [facility].[address] Nucleated RBC/100 WBC (Bld) [Ratio] 0 % Normal 0-0 [facility] Comment on above: Order Comment: No: D o not add to previous drawNurse draw rn barbara Performed By: #### 5 0608 ####[facility]3000 [facility].[address] PLAT CNT 176 10*3/uL Normal 150-400 [facility] Comment on above: Order Comment: No: D o not add to previous drawNurse draw rn barbara Performed By: #### 5 0608 ####[facility]3000 [facility].[address] RBC (Bld) [#/Vol] 3.55 10*6/uL Low 4.20-5.70 [facility] Comment on above: Order Comment: No: D o not add to previous drawNurse draw rn barbara Performed By: #### 5 0608 ####[facility]3000 [facility].[address] WBC (Bld) [#/Vol] 12.43 10*3/uL High 4.00-10.60 [facility] Comment on above: Order Comment: No: D o not add to previous drawNurse draw rn barbara Performed By: #### 5 0608 ####[facility]3000 [facility].[address] COOXIMETRYon 04-10-2021 COHB 1 % Normal [facility] Comment on above: Performed By: #### 7 0207 ####[facility] [place] [address], [facility] METHB 0 % Normal [facility] Comment on above: Performed By: #### 7 0207 ####[facility] [place] [address], [facility] Oxygen saturation in Blood 68.2 % Normal 65.0-75.0 [facility] Comment on above: Performed By: #### 7 0207 ####[facility] [place] [address], [facility] THB 13.1 g/dL Normal [facility] Comment on above: Performed By: #### 7 0207 ####[facility] [place] [address], [facility] LACTATE BLOODon 04-10-2021 Lactate [Moles/Vol] 0.7 mmol/L Normal .5-2.2 [facility] Comment on above: Order Comment: No: D o not add to previous drawNurse draw sumit jimenez Performed By: #### 1 0054 ####[facility] [facility] [place] [address], [facility] MAGNESIUM BLOODon 04-10-2021 Magnesium [Mass/Vol] 2.3 mg/dL Normal 1.9-2.7 [facility] Comment on above: Order Comment: No: D o not add to previous drawNurse draw sumit jimenez Performed By: #### 4 999, 54686, 05913 ####[facility] [place] [address], [facility] PHOSPHORUS BLOODon Phosphate [Mass/Vol] 3.9 mg/dL Normal 2.5-5.0 [facility] Comment on above: Order Comment: No: D o not add to previous drawNurse draw sumit jimenez Performed By: #### 4 999, 84023, 73239 ####[facility] [place] [address], [facility] POC GLUCOSE LABon 04-10-2021 Glucose [Mass/Vol] 168 mg/dL High 70-100 [facility] Comment on above: Performed By: #### 8 5499 ####[facility] [place] [address], [place] Glucose [Mass/Vol] 131 mg/dL High 70-100 [facility] Comment on above: Performed By: #### 8 5499 ####[facility] [place] [address], [place] Glucose [Mass/Vol] 123 mg/dL High 70-100 [facility] Comment on above: Performed By: #### 8 5499 ####[facility] [place] [address], [place] Glucose [Mass/Vol] 170 mg/dL High 70-100 [facility] Comment on above: Performed By: #### 8 5499 ####[facility] [place] [address], [place] Glucose [Mass/Vol] 131 mg/dL High 70-100 [facility] Comment on above: Performed By: #### 8 5499 ####[facility] [place] [address], [place] Glucose [Mass/Vol] 123 mg/dL High 70-100 [facility] Comment on above: Performed By: #### 8 5499 ####[facility] [place] [address], [place] Glucose [Mass/Vol] 92 mg/dL Normal 70-100 [facility] Comment on above: Performed By: #### 8 5499 ####[facility] [place] [address], [place] Glucose [Mass/Vol] 99 mg/dL Normal 70-100 [facility] Comment on above: Performed By: #### 8 5499 ####[facility] [place] [address], [place] Glucose [Mass/Vol] 124 mg/dL High 70-100 [facility] Comment on above: Performed By: #### 8 5499 ####[facility] [place] [address], [place] Glucose [Mass/Vol] 141 mg/dL High 70-100 [facility] Comment on above: Performed By: #### 8 5499 ####[facility] [place] [address], [place] Glucose [Mass/Vol] 143 mg/dL High 70-100 [facility] Comment on above: Performed By: #### 8 5499 ####[facility] [facility] [place] [address], [facility] PORTABLE CHEST 1 VIEWon 03-24 PORTABLE CHEST 1 VIEW Normal [facility] Comment on above: Order Comment: Check Chest Tube Position, s/p mediasteinal tube removal PORTABLE CHEST 1 VIEW Normal [facility] Comment on above: Order Comment: evalu ate for Atelectasis APTTon 04-09-2021 aPTT Coag (Bld) [Time] 28.6 s Normal 25.0-35.0 [facility] Comment on above: Order [...] THIS PURPOSE. Performed By: #### 5 7307, 27542 ####[facility] [place] [address], [place] ARTERIAL BLOOD GAS WITH ICAo n 04-09-2021 DEL[employer]ERY SYSTEMS NC Normal [facility] Comment on above: Performed By: #### 8 4511 ####[facility] [place] [address], [place] IONIZED CALCIUM 1.15 mmol/L Normal 1.13-1.32 [facility] Comment on above: Performed By: #### 8 4511 ####[facility] [place] [address], [place] LPM 4.0 LPM Normal [facility] Comment on above: Performed By: #### 8 4511 ####[facility] [place] [address], [place] Oxygen (Bld) [Partial pressure] 63 mm[Hg] Low 83-108 [facility] Comment on above: Performed By: #### 8 4511 ####[facility] [place] [address], [place] Oxygen saturation in Blood 94.2 % Normal 94.0-97.0 [facility] Comment on above: Performed By: #### 8 4511 ####[facility] [place] [address], [place] BASE EXCESS 3 mmol/L Normal -2-3 [facility] Comment on above: Performed By: #### 8 4511 ####[facility] [place] [address], [place] [employer] SYSTEM[employer] MV Normal [facility] Comment on above: Performed By: #### 8 4511 ####[facility] [place] [address], [place] FIO2 40 % Normal [facility] Comment on above: Performed By: #### 8 4511 ####[facility] [place] [address], [place] HCO3 (Bld) [Moles/Vol] 27 mmol/L Normal 21-28 [facility] Comment on above: Performed By: #### 8 4511 ####[facility] [place] [address], [facility] IONIZED CALCIUM 1.17 mmol/L Normal 1.13-1.32 [facility] Comment on above: Performed By: #### 8 4511 ####[facility] [place] [address], [place] MIN VOLUME 14.0 Normal [facility] Comment on above: Performed By: #### 8 4511 ####[facility] [place] [address], [place] MODALITY SPONT Normal [facility] Comment on above: Performed By: #### 8 4511 ####[facility] [place] [address], [place] Oxygen (Bld) [Partial pressure] 79 mm[Hg] Low 83-108 [facility] Comment on above: Performed By: #### 8 4511 ####[facility] [place] [address], [place] Oxygen saturation in Blood 96.5 % Normal 94.0-97.0 [facility] Comment on above: Performed By: #### 8 4511 ####[facility] [place] [address], [place] PCO2 37 mmHg Normal 35-45 [facility] Comment on above: Performed By: #### 8 4511 ####[facility] [place] [address], [place] PEEP 5.0 CMH20 Normal [facility] Comment on above: Performed By: #### 8 4511 ####[facility] [place] [address], [place] PF RATIO 198 mmHg Normal [facility] Comment on above: Performed By: #### 8 4511 ####[facility] [place] [address], [place] pH (Bld) 7.47 [pH] High 7.35-7.45 [facility] Comment on above: Performed By: #### 8 4511 ####[facility] PRESSURE SUPPORT 5 Normal [facility] Comment on above: Performed By: #### 8 4511 ####[facility] BASE EXCESS 2 mmol/L Normal -2-3 [facility] Comment on above: Performed By: #### 8 4511 ####[facility] DELIVERY SYSTEMS MV Normal [facility] Comment on above: Performed By: #### 8 4511 ####[facility]3000 [facility].[address] FIO2 50 % Normal [facility] Comment on above: Performed By: #### 8 4511 ####[facility] [facility].[address] HCO3 (Bld) [Moles/Vol] 26 mmol/L Normal 21-28 [facility] Comment on above: Performed By: #### 8 4511 ####[facility] [facility].[address] IONIZED CALCIUM 1.17 mmol/L Normal 1.13-1.32 [facility] Comment on above: Performed By: #### 8 4511 ####[facility] [place] [address], [facility] MIN VOLUME 13.3 Normal [facility] Comment on above: Performed By: #### 8 4511 ####[facility] [place] [address], [facility] MODALITY SIMV Normal [facility] Comment on above: Performed By: #### 8 4511 ####[facility] [place] [address], [facility] Oxygen (Bld) [Partial pressure] 79 mm[Hg] Low 83-108 [facility] Comment on above: Performed By: #### 8 4511 ####[facility] [place] [address], [place] Oxygen saturation in Blood 96.8 % Normal 94.0-97.0 [facility] Comment on above: Performed By: #### 8 4511 ####[facility] [place] [address], [place] PCO2 36 mmHg Normal 35-45 [facility] Comment on above: Performed By: #### 8 4511 ####[facility] [place] [address], [place] PEEP 8.0 CMH20 Normal [facility] Comment on above: Performed By: #### 8 4511 ####[facility] [place] [address], [place] PF RATIO 158 mmHg Normal [facility] Comment on above: Performed By: #### 8 4511 ####[facility] [place] [address], [place] pH (Bld) 7.46 [pH] High 7.35-7.45 [facility] Comment on above: Performed By: #### 8 4511 ####[facility] [place] [address], [place] PRESSURE SUPPORT 10 Normal [facility] Comment on above: Performed By: #### 8 4511 ####[facility] [place] [address], [place] Respiratory rate 18 /min Normal [facility] Comment on above: Performed By: #### 8 4511 ####[facility], [place] [address] [place] [address] TIDAL VOLUME (VT) CC 700 Normal [facility] Comment on above: Performed By: #### 8 4511 ####[facility] [place] [address], [facility] BASE EXCESS -4 mmol/L Low -2-3 [facility] Comment on above: Performed By: #### 8 4511 ####[facility] [facility] [address] [place] [address] DELIVERY SYSTEMS MV Normal [facility] Comment on above: Performed By: #### 8 4511 ####[facility] [place] [address], [facility] FIO2 80 % Normal [facility] Comment on above: Performed By: #### 8 4511 ####[facility] [facility], [place] [address] [place] [address] HCO3 (Bld) [Moles/Vol] 20 mmol/L Low 21- e [facility] Comment on above: Performed By: #### 8 4511 ####[facility] [facility] [place] [address], [facility] IONIZED CALCIUM 1.14 mmol/L Normal 1.13-1.32 [facility] Comment on above: Performed By: #### 8 4511 ####[facility] [facility] [place] [address], [facility] MIN VOLUME 13.5 Normal [facility] Comment on above: Performed By: #### 8 4511 ####[facility] [place] [address], [facility] MODALITY SIMV Normal [facility] Comment on above: Performed By: #### 8 4511 ####[facility] [place] [address], [place] Oxygen (Bld) [Partial pressure] 121 mm[Hg] Critically high 83-108 [facility] Comment on above: Performed By: #### 8 4511 ####[facility] [place] [address], [facility] Oxygen saturation in Blood 97.1 % High 94.0-97.0 [facility] Comment on above: Performed By: #### 8 4511 ####[facility] [place] [address], [facility] PCO2 34 mmHg Low 35-45 [facility] Comment on above: Performed By: #### 8 4511 ####[facility] [place] [address], [facility] PEEP 8.0 CMH20 Normal [facility] Comment on above: Performed By: #### 8 4511 ####[facility] [place] [address], [facility] pH (Bld) 7.38 [pH] Normal 7.35-7.45 [facility] Comment on above: Performed By: #### 8 4511 ####[facility] [facility] [place] [address], [facility] PRESSURE SUPPORT 10 Normal [facility] Comment on above: Performed By: #### 8 4511 ####[facility] [place] [address], [facility] Respiratory rate 18 /min Normal [facility] Comment on above: Performed By: #### 8 4511 ####[facility] [place] [address], [facility] TIDAL VOLUME (VT) CC 700 Normal [facility] Comment on above: Performed By: #### 8 4511 ####[facility] [place] [address], [facility] BASE EXCESS -8 mmol/L Low -2-3 [facility] Comment on above: Performed By: #### 8 4511 ####[facility] [place] [address], [facility] DELIVERY SYSTEMS MV Normal [facility] Comment on above: Performed By: #### 8 4511 ####[facility] [place] [address], [place] FIO2 80 % Normal [facility] Comment on above: Performed By: #### 8 4511 ####[facility] [place] [address], [place] HCO3 (Bld) [Moles/Vol] 18 mmol/L Low 21-28 [facility] Comment on above: Performed By: #### 8 4511 ####[facility] [place] [address], [place] IONIZED CALCIUM 1.06 mmol/L Low 1.13-1.32 [facility] Comment on above: Performed By: #### 8 4511 ####[facility] [place] [address], [place] MIN VOLUME 16.6 Normal [facility] Comment on above: Performed By: #### 8 4511 ####[facility] [place] [address], [place] MODALITY SIMV Normal [facility] Comment on above: Performed By: #### 8 4511 ####[facility] [place] [address], [place] Oxygen (Bld) [Partial pressure] 86 mm[Hg] Normal 83-108 [facility] Comment on above: Performed By: #### 8 4511 ####[facility] [place] [address], [place] Oxygen saturation in Blood 96.6 % Normal 94.0-97.0 [facility] Comment on above: Performed By: #### 8 4511 ####[facility] [place] [address], [facility] PCO2 34 mmHg Low 35-45 [facility] Comment on above: Performed By: #### 8 4511 ####[facility] [place] [address], [place] PEEP 8.0 CMH20 Normal [facility] Comment on above: Performed By: #### 8 4511 ####[facility] [place] [address], [place] PF RATIO 108 mmHg Normal [facility] Comment on above: Performed By: #### 8 4511 ####[facility] [place] [address], [facility] pH (Bld) 7.32 [pH] Low 7.35-7.45 [facility] Comment on above: Performed By: #### 8 4511 ####[facility] [place] [address], [facility] PRESSURE SUPPORT 10 Normal [facility] Comment on above: Performed By: #### 8 4511 ####[facility] [place] [address], [facility] Respiratory rate 18 /min Normal [facility] Comment on above: Performed By: #### 8 4511 ####[facility] [place] [address], [facility] TIDAL VOLUME (VT) CC 700 Normal [facility] Comment on above: Performed By: #### 8 4511 ####[facility] [place] [address], [facility] BASIC METABOLIC PANELon 03-24 Calcium [Mass/Vol] 8.0 mg/dL Low 8.6-10.3 [facility] Comment on above: Order Comment: No: D o not add to previous draw Performed By: #### 0 0071, 66647 ####[facility] [place] [address], [facility] Chloride [Moles/Vol] 107 mmol/L Normal 98-107 [facility] Comment on above: Order Comment: No: D o not add to previous draw Performed By: #### 0 0071, 39110 ####[facility] [place] [address], [place] CO2 [Moles/Vol] 26 mmol/L Normal 21-31 [facility] Comment on above: Order Comment: No: D o not add to previous draw Performed By: #### 0 0071, 89178 ####[facility] [place] [address], [facility] Creatinine [Mass/Vol] 0.90 mg/dL Normal 0.70-1.30 [facility] Comment on above: Order Comment: No: D o not add to previous draw Performed By: #### 0 0071, 53272 ####[facility] [place] [address], [place] GFR/1.73 sq M.predicted among blacks MDRD (S/P/Bld) [Vol rate/Area] mL/min/{1.73_m2} Normal >60 [facility] Comment on above: Order Comment: No: D o not add to previous draw Result Comment: Calc ulation may not be valid for patients over 70 years Performed By: #### 0 0071, 33388 ####[facility] [place] [address], [place] GFR/1.73 sq M.predicted among non-blacks MDRD (S/P/Bld) [Vol rate/Area] mL/min/{1.73_m2} Normal >60 [facility] Comment on above: Order Comment: No: D o not add to previous draw Result Comment: Calc ulation may not be valid for patients over 70 years Performed By: #### 0 0071, 05638 ####[facility] [place] [address], [place] Glucose [Mass/Vol] 126 mg/dL High 70-100 [facility] Comment on above: Order Comment: No: D o not add to previous draw Performed By: #### 0 0071, 19319 ####[facility] [place] [address], [place] Potassium [Moles/Vol] 3.8 mmol/L Normal 3.5-5.1 [facility] Comment on above: Order Comment: No: D o not add to previous draw Performed By: #### 0 0071, 04934 ####[facility] [place] [address], [place] Sodium [Moles/Vol] 136 mmol/L Normal 136-145 [facility] Comment on above: Order Comment: No: D o not add to previous draw Performed By: #### 0 0071, 18527 ####[facility] [place] [address], [place] Urea nitrogen [Mass/Vol] 21 mg/dL Normal 7-25 [facility] Comment on above: Order Comment: No: D o not add to previous draw Performed By: #### 0 0071, 93435 ####[facility] [place] [address], [place] Calcium [Mass/Vol] 7.8 mg/dL Low 8.6-10.3 [facility] Comment on above: Order Comment: post op day 1No: Do not add to previous draw Performed By: #### 1 0, 31494 ####[facility] [place] [address], [place] Chloride [Moles/Vol] 103 mmol/L Normal 98-107 [facility] Comment on above: Order Comment: post op day 1No: Do not add to previous draw Performed By: #### 1 0, 97979 ####[facility] [place] [address], [place] CO2 [Moles/Vol] 20 mmol/L Low 21-31 [facility] Comment on above: Order Comment: post op day 1No: Do not add to previous draw Performed By: #### 1 0, 22820 ####[facility] [place] [address], [place] Creatinine [Mass/Vol] 1.25 mg/dL Normal 0.70-1.30 [facility] Comment on above: Order Comment: post op day 1No: Do not add to previous draw Performed By: #### 1 0, 19894 ####[facility] [place] [address], [facility] eGFR- non- 56 ml/min/1.73sq m Abnormal >60 [facility] Comment on above: Order Comment: post op day 1No: Do not add to previous draw Result Comment: Calc ulation may not be valid for patients over 70 years Performed By: #### 1 0, [id number] ####[facility] [place] [address], [place] GFR/1.73 sq M.predicted among blacks MDRD (S/P/Bld) [Vol rate/Area] mL/min/{1.73_m2} Normal >60 [facility] Comment on above: Order Comment: post op day 1No: Do not add to previous draw Result Comment: Calc ulation may not be valid for patients over 70 years Performed By: #### 1 0070, 99904 ####[facility] [place] [address], [place] Glucose [Mass/Vol] 331 mg/dL High 70-100 [facility] Comment on above: Order Comment: post op day 1No: Do not add to previous draw Performed By: #### 1 0070, 33490 ####[facility] [place] [address], [place] Potassium [Moles/Vol] 3.2 mmol/L Low 3.5-5.1 [facility] Comment on above: Order Comment: post op day 1No: Do not add to previous draw Performed By: #### 1 0, 36792 ####[facility] Sodium [Moles/Vol] 135 mmol/L Low 136-145 [facility] Comment on above: Order Comment: post op day 1No: Do not add to previous draw Performed By: #### 1 69, 71512 ####[facility] [facility] Urea nitrogen [Mass/Vol] 24 mg/dL Normal 7-25 [facility] Comment on above: Order Comment: post op day 1No: Do not add to previous draw Performed By: #### 1 69, 06834 ####[facility] [facility].[address] CBC COMPLETE BLOOD COUNTon 0 - Erythrocyte distribution width (RBC) [Ratio] 14.6 % Normal 11.5-15.0 [facility] Comment on above: Order Comment: post op day 1No: Do not add to previous draw Performed By: #### 5 0608 ####[facility] [facility].[address] Hematocrit (Bld) [Volume fraction] 30.5 % Low 39.0-50.0 [facility] Comment on above: Order Comment: post op day 1No: Do not add to previous draw Performed By: #### 5 0608 ####[facility] [facility] Hemoglobin (Bld) [Mass/Vol] 10.2 g/dL Low 13.0-17.0 [facility] Comment on above: Order Comment: post op day 1No: Do not add to previous draw Performed By: #### 5 0608 ####[facility] MCH (RBC) [Entitic mass] 30.9 pg Normal 27.0-33.0 [facility] Comment on above: Order Comment: post op day 1No: Do not add to previous draw Performed By: #### 5 0608 ####[facility] MCHC (RBC) [Mass/Vol] 33.4 g/dL Normal 32.0-35.0 [facility] Comment on above: Order Comment: post op day 1No: Do not add to previous draw Performed By: #### 5 0608 ####[facility] [place] [address] MCV (RBC) [Entitic vol] 92.4 fL Normal 82.0-98.0 [facility] Comment on above: Order Comment: post op day 1No: Do not add to previous draw Performed By: #### 5 0608 ####[facility] Nucleated RBC/100 WBC (Bld) [Ratio] 0 % Normal 0-0 [facility] Comment on above: Order Comment: post op day 1No: Do not add to previous draw Performed By: #### 5 0608 ####[facility] [facility].[address] PLAT CNT 232 10*3/uL Normal 150-400 [facility] Comment on above: Order Comment: post op day 1No: Do not add to previous draw Performed By: #### 5 0608 ####[address] RBC (Bld) [#/Vol] 3.30 10*6/uL Low 4.20-5.70 [facility] Comment on above: Order Comment: post op day 1No: Do not add to previous draw Performed By: #### 5 0608 ####[facility] [facility] [place] [address], [facility] WBC (Bld) [#/Vol] 17.37 10*3/uL High 4.00-10.60 [facility] Comment on above: Order Comment: post op day 1No: Do not add to previous draw Performed By: #### 5 0608 ####[facility] [facility] [place] [address], [facility] CBC W/DIFFon 04-09-2021 ABS IMM GRANS 0.1 10*3/uL Normal 0.0-0.2 [facility] Comment on above: Order Comment: No: D o not add to previous draw Performed By: #### 5 0103 ####[facility] [place] [address], [facility] ABS NEUTROPHILS 8.3 10*3/uL High 1.6-7.6 [facility] Comment on above: Order Comment: No: D o not add to previous draw Performed By: #### 5 0103 ####[facility] [place] [address], [facility] Basophils (Bld) [#/Vol] 0.0 10*3/uL Normal 0.0-0.2 [facility] Comment on above: Order Comment: No: D o not add to previous draw Performed By: #### 5 0103 ####[facility] [facility] [place] [address], [facility] Basophils/100 WBC (Bld) 0.1 % Normal 0.0-1.0 [facility] Comment on above: Order Comment: No: D o not add to previous draw Performed By: #### 5 0103 ####[facility] [place] [address], [facility] Eosinophils (Bld) [#/Vol] 0.0 10*3/uL Normal 0.0-0.5 [facility] Comment on above: Order Comment: No: D o not add to previous draw Performed By: #### 5 0103 ####[facility] Eosinophils/100 WBC (Bld) 0.0 % Normal 0.0-6.0 [facility] Comment on above: Order Comment: No: D o not add to previous draw Performed By: #### 5 0103 ####[facility] Erythrocyte distribution width (RBC) [Ratio] 14.4 % Normal 11.5-15.0 [facility] Comment on above: Order Comment: No: D o not add to previous draw Performed By: #### 5 0103 ####[facility] Hematocrit (Bld) [Volume fraction] 28.9 % Low 39.0-50.0 [facility] Comment on above: Order Comment: No: D o not add to previous draw Performed By: #### 5 0103 ####[facility] Hemoglobin (Bld) [Mass/Vol] 9.6 g/dL Low 13.0-17.0 [facility] Comment on above: Order Comment: No: D o not add to previous draw Performed By: #### 5 0103 ####[facility] IMMATURE GRANS 0.5 % Normal 0.0-1.0 [facility] Comment on above: Order Comment: No: D o not add to previous draw Performed By: #### 5 0103 ####[facility] Lymphocytes (Bld) [#/Vol] 1.3 10*3/uL Normal 1.2-4.0 [facility] Comment on above: Order Comment: No: D o not add to previous draw Performed By: #### 5 0103 ####[facility] Lymphocytes/100 WBC (Bld) 12.1 % Low 20.0-45.0 [facility] Comment on above: Order Comment: No: D o not add to previous draw Performed By: #### 5 0103 ####[facility] MCH (RBC) [Entitic mass] 30.6 pg Normal 27.0-33.0 [facility] Comment on above: Order Comment: No: D o not add to previous draw Performed By: #### 5 0103 ####[facility] MCHC (RBC) [Mass/Vol] 33.2 g/dL Normal 32.0-35.0 [facility] Comment on above: Order Comment: No: D o not add to previous draw Performed By: #### 5 0103 ####[facility] MCV (RBC) [Entitic vol] 92.0 fL Normal 82.0-98.0 [facility] Comment on above: Order Comment: No: D o not add to previous draw Performed By: #### 5 0103 ####[facility] Monocytes (Bld) [#/Vol] 1.2 10*3/uL High 0.1-1.0 [facility] Comment on above: Order Comment: No: D o not add to previous draw Performed By: #### 5 0103 ####[facility] [place] [address], [facility] MONOS 10.9 % Normal 5.0-12.0 [facility] Comment on above: Order Comment: No: D o not add to previous draw Performed By: #### 5 0103 ####[facility] [place] [address], [facility] Neutrophils/100 WBC (Bld) 76.4 % High 40.0-72.0 [facility] Comment on above: Order Comment: No: D o not add to previous draw Performed By: #### 5 0103 ####[facility] [id number], [facility] Nucleated RBC/100 WBC (Bld) [Ratio] 0 % Normal 0-0 [facility] Comment on above: Order Comment: No: D o not add to previous draw Performed By: #### 5 0103 ####[facility] [facility] [place] [address], [facility] PLAT CNT 175 10*3/uL Normal 150-400 [facility] Comment on above: Order Comment: No: D o not add to previous draw Performed By: #### 5 0103 ####[facility] [facility] [place] [address], [facility] RBC (Bld) [#/Vol] 3.14 10*6/uL Low 4.20-5.70 [facility] Comment on above: Order Comment: No: D o not add to previous draw Performed By: #### 5 0103 ####[facility] [facility].[place] [id number], [facility] WBC (Bld) [#/Vol] 10.92 10*3/uL High 4.00-10.60 [facility] Comment on above: Order Comment: No: D o not add to previous draw Performed By: #### 5 0103 ####[facility] [id number], [facility] LACTATE BLOODon 04-09-2021 Lactate [Moles/Vol] 0.9 mmol/L Normal .5-2.2 [facility] Comment on above: Order Comment: No: D o not add to previous draw Performed By: #### 1 0054 ####[facility] [place] [address], [place] Lactate [Moles/Vol] 3.8 mmol/L High .5-2.2 [facility] Comment on above: Order Comment: No: D o not add to previous draw Result Comment: M-CR ITICAL RESULT(S) REVIEWED, CALLED TO AND READ BACK BY [employer] DRIVER [id number] Performed By: #### 1 0054 ####[facility] [place] [address], [place] Lactate [Moles/Vol] 7.1 mmol/L Critically high .5-2.2 [facility] Comment on above: Order Comment: post op day 1No: Do not add to previous draw Result Comment: M-CT EVIOUS CRITICAL RESULT Performed By: #### 1 0054 ####[facility] [place] [address], [place] MAGNESIUM BLOODon 04-09-2021 Magnesium [Mass/Vol] 2.3 mg/dL Normal 1.9-2.7 [facility] Comment on above: Order Comment: No: D o not add to previous draw Performed By: #### 1 0070, 02689 ####[facility] [place] [address], [place] Magnesium [Mass/Vol] 2.2 mg/dL Normal 1.9-2.7 [facility] Comment on above: Order Comment: added from prior Performed By: #### 0 0071, 64731 ####[facility] [place] [address], [place] Magnesium [Mass/Vol] 2.4 mg/dL Normal 1.9-2.7 [facility] Comment on above: Order Comment: post op day 1No: Do not add to previous draw Performed By: #### 1 0070, 67708 ####[facility] [place] [address], [place] Operative Reporton Operative Report Normal [facility] POC GLUCOSE LABon 04-09-2021 Glucose [Mass/Vol] 162 mg/dL High 70-100 [facility] Comment on above: Performed By: #### 8 5499 ####[facility] [place] [address], [place] Glucose [Mass/Vol] 128 mg/dL High 70-100 [facility] Comment on above: Performed By: #### 8 5499 ####[facility] [place] [address], [place] Glucose [Mass/Vol] 117 mg/dL High 70-100 [facility] Comment on above: Performed By: #### 8 5499 ####[facility] [place] [address], [place] Glucose [Mass/Vol] 110 mg/dL High 70-100 [facility] Comment on above: Performed By: #### 8 5499 ####[facility] [place] [address], [place] Glucose [Mass/Vol] 65 mg/dL Low 70-100 [facility] Comment on above: Performed By: #### 8 5499 ####[facility] [place] [address], [place] Glucose [Mass/Vol] 86 mg/dL Normal 70-100 [facility] Comment on above: Performed By: #### 8 5499 ####[facility] [place] [address], [place] Glucose [Mass/Vol] 127 mg/dL High 70-100 [facility] Comment on above: Performed By: #### 8 5499 ####[facility] [place] [address], [place] Glucose [Mass/Vol] 230 mg/dL High 70-100 [facility] Comment on above: Performed By: #### 8 5499 ####[facility] [place] [address], [place] Glucose [Mass/Vol] 244 mg/dL High 70-100 [facility] Comment on above: Performed By: #### 8 5499 ####[facility] [place] [address], [place] Glucose [Mass/Vol] 283 mg/dL High 70-100 [facility] Comment on above: Performed By: #### 8 5499 ####[facility] [place] [address], [place] Glucose [Mass/Vol] 326 mg/dL High 70-100 [facility] Comment on above: Performed By: #### 8 5499 ####[facility] [place] [address], [place] Glucose [Mass/Vol] 347 mg/dL High 70-100 [facility] Comment on above: Performed By: #### 8 5499 ####[facility] [place] [address], [place] Glucose [Mass/Vol] 258 mg/dL High 70-100 [facility] Comment on above: Performed By: #### 8 5499 ####[facility] [place] [address], [place] Glucose [Mass/Vol] 334 mg/dL High 70-100 [facility] Comment on above: Performed By: #### 8 5499 ####[facility] [place] [address], [place] Glucose [Mass/Vol] 338 mg/dL High 70-100 [facility] Comment on above: Performed By: #### 8 5499 ####[facility] [place] [address], [facility] Glucose [Mass/Vol] 321 mg/dL High 70-100 [facility] Comment on above: Performed By: #### 8 5499 ####[facility] [place] [address], [facility] Glucose [Mass/Vol] 302 mg/dL High 70-100 [facility] Comment on above: Performed By: #### 8 5499 ####[facility] [address], [facility] PORTABLE CHEST 1 VIEWon 03-24 PORTABLE CHEST 1 VIEW Normal [facility] Comment on above: Order Comment: Check Chest Tube Position POTASSIUM BLOODon 04-09-2021 Potassium [Moles/Vol] 4.6 mmol/L Normal 3.5-5.1 [facility] Comment on above: Order Comment: No: D o not add to previous draw Performed By: #### 1 0070, 46688 ####[facility] [place] [id number] [place] [address] PROTHROMBIN TIMEon INR Coag (PPP) [Relative time] 1.22 {INR} High 0.91-1.16 [facility] Comment on above: [...] OF ACTION, CLINICALEFFECTIVENESS, AND OPTIMAL THERAPEUTIC RANGE. [id number]. Performed By: #### 5 7307, 87171 ####[facility] [place] [address], [facility] PT Coag (PPP) [Time] 15.4 s High 12.3-14.8 [facility] Comment on above: Order Comment: post op day 1No: Do not add to previous draw Result Comment: ALL RESULTS MUST BE INTERPRETED WITH RESPECT TO BLOOD DRAWING ARTIFACTOR DILUTION ERROR OF ANTICOAGULANT AT THE TIME OF SAMPLING. Performed By: #### 5 7307, 85896 ####[facility] [place] [address], [facility] ACTIVATED CLOTTING TIMEon ACTIVATED CLOTTING TIME 121 sec Normal 82-152 [facility] Comment on above: Performed By: #### 3 0739 ####[facility] [place] [address], [facility] ACTIVATED CLOTTING TIME 305 sec High 82-152 [facility] Comment on above: Performed By: #### 3 0739 ####[facility] [place] [address], [facility] ACTIVATED CLOTTING TIME 286 sec High 82-152 [facility] Comment on above: Performed By: #### 3 0739 ####[facility] [place] [address], [place] ACTIVATED CLOTTING TIME 279 sec High 82-152 [facility] Comment on above: Performed By: #### 3 0739 ####[facility] [place] [address], [place] ACTIVATED CLOTTING TIME 325 sec High 82-152 [facility] Comment on above: Performed By: #### 3 0739 ####[facility] [place] [address], [facility] ACTIVATED CLOTTING TIME 184 sec High 82-152 [facility] Comment on above: Performed By: #### 3 0739 ####[facility] [place] [address], [facility] ACTIVATED CLOTTING TIME 121 sec Normal 82-152 [facility] Comment on above: Performed By: #### 3 0739 ####[facility] APTTon 04-08-2021 aPTT Coag (Bld) [Time] 30.4 s Normal 25.0-35.0 [facility] Comment on above: Order [...] THIS PURPOSE. Performed By: #### 5 6101, 12890 ####[facility] [facility] [place] [address], [facility] aPTT Coag (Bld) [Time] 30.6 s Normal 25.0-35.0 [facility] Comment on above: Result Comment: [...] THIS PURPOSE. Performed By: #### 5 7307, 04974, 38768 ####[facility] [place] [address], [facility] ARTERIAL BLOOD GAS WITH ICAo n 04-08-2021 BASE EXCESS -4 mmol/L Low -2-3 [facility] Comment on above: Order Comment: on ar rival to CVU Performed By: #### 8 4511 ####[facility] [place] [address], [facility] [employer] MV Normal [facility] Comment on above: Order Comment: on ar rival to CVU Performed By: #### 8 4511 ####[facility] [place] [address], [facility] FIO2 70 % Normal [facility] Comment on above: Order Comment: on ar rival to CVU Performed By: #### 8 4511 ####[facility] [place] [address], [facility] HCO3 (Bld) [Moles/Vol] 21 mmol/L Normal 21-28 [facility] Comment on above: Order Comment: on ar rival to CVU Performed By: #### 8 4511 ####[facility] [place] [address], [facility] IONIZED CALCIUM 1.09 mmol/L Low 1.13-1.32 [facility] Comment on above: Order Comment: on ar rival to CVU Performed By: #### 8 4511 ####[facility] [place] [address], [facility] MIN VOLUME 14.2 Normal [facility] Comment on above: Order Comment: on ar rival to CVU Result Comment: Resu lt changed by DOTTY on 04/08/2021 19:16. The previous value was16.0. Performed By: #### 8 4511 ####[facility] [place] [address], [facility] MODALITY SIMV Normal [facility] Comment on above: Order Comment: on ar rival to CVU Performed By: #### 8 4511 ####[facility] [place] [address], [facility] Oxygen (Bld) [Partial pressure] 69 mm[Hg] Low 83-108 [facility] Comment on above: Order Comment: on ar rival to CVU Performed By: #### 8 4511 ####[facility] [place] [address], [facility] Oxygen saturation in Blood 93.8 % Low 94.0-97.0 [facility] Comment on above: Order Comment: on ar rival to CVU Performed By: #### 8 4511 ####[facility] [place] [address], [place] PCO2 36 mmHg Normal 35-45 [facility] Comment on above: Order Comment: on ar rival to CVU Performed By: #### 8 4511 ####[facility] [place] [address], [place] PEEP 8.0 CMH20 Normal [facility] Comment on above: Order Comment: on ar rival to CVU Performed By: #### 8 4511 ####[facility] [place] [address], [place] PF RATIO 99 mmHg Normal [facility] Comment on above: Order Comment: on ar rival to CVU Performed By: #### 8 4511 ####[facility] [place] [address], [place] pH (Bld) 7.37 [pH] Normal 7.35-7.45 [facility] Comment on above: Order Comment: on ar rival to CVU Performed By: #### 8 4511 ####[facility] [place] [address], [place] PRESSURE SUPPORT 10 Normal [facility] Comment on above: Order Comment: on ar rival to CVU Performed By: #### 8 4511 ####[facility] [place] [address], [facility] Respiratory rate 16 /min Normal [facility] Comment on above: Order Comment: on ar rival to CVU Performed By: #### 8 4511 ####[facility] [place] [address], [place] TIDAL VOLUME (VT) CC 700 Normal [facility] Comment on above: Order Comment: on ar rival to CVU Performed By: #### 8 4511 ####[facility] [place] [address], [place] BASE EXCESS -4 mmol/L Low -2-3 [facility] Comment on above: Performed By: #### 8 4511 ####[facility] [place] [address], [facility] [employer] VENT Normal [facility] Comment on above: Performed By: #### 8 4511 ####[facility] [place] [address], [place] FIO2 70 % Normal [facility] Comment on above: Performed By: #### 8 4511 ####[facility] [place] [address], [place] HCO3 (Bld) [Moles/Vol] 23 mmol/L Normal 21-28 [facility] Comment on above: Performed By: #### 8 4511 ####[facility] [place] [address], [place] IONIZED CALCIUM 1.14 mmol/L Normal 1.13-1.32 [facility] Comment on above: Performed By: #### 8 4511 ####[facility] [place] [address], [place] MIN VOLUME 9.0 Normal [facility] Comment on above: Performed By: #### 8 4511 ####[facility] [place] [address], [facility] MODALITY SIMV Normal [facility] Comment on above: Performed By: #### 8 4511 ####[facility] [place] [address], [place] Oxygen (Bld) [Partial pressure] 70 mm[Hg] Low 83-108 [facility] Comment on above: Performed By: #### 8 4511 ####[facility] [place] [address], [place] Oxygen saturation in Blood 92.5 % Low 94.0-97.0 [facility] Comment on above: Performed By: #### 8 4511 ####[facility] [place] [address], [place] PCO2 48 mmHg High 35-45 [facility] Comment on above: Performed By: #### 8 4511 ####[facility] [place] [address], [place] PEEP 8.0 CMH20 Normal [facility] Comment on above: Performed By: #### 8 4511 ####[facility] [place] [address], [place] PF RATIO 100 mmHg Normal [facility] Comment on above: Performed By: #### 8 4511 ####[facility] [place] [address], [place] pH (Bld) 7.28 [pH] Low 7.35-7.45 [facility] Comment on above: Performed By: #### 8 4511 ####[facility] [place] [address], [place] PRESSURE SUPPORT 10 Normal [facility] Comment on above: Performed By: #### 8 4511 ####[facility] [place] [address], [place] Respiratory rate 14 /min Normal [facility] Comment on above: Performed By: #### 8 4511 ####[facility] [id number], [facility] TIDAL VOLUME (VT) CC 550 Normal [facility] Comment on above: Performed By: #### 8 4511 ####[facility] [place] [address], [facility] BASIC METABOLIC PANELon 08- Calcium [Mass/Vol] 7.7 mg/dL Low 8.6-10.3 [facility] Comment on above: Order Comment: No: D o not add to previous draw Performed By: #### 1 0070, 86469, 92559 ####[facility] [id number], [facility] Chloride [Moles/Vol] 103 mmol/L Normal 98-107 [facility] Comment on above: Order Comment: No: D o not add to previous draw Performed By: #### 1 0070, 71590, 88394 ####[facility] [place] [address], [facility] CO2 [Moles/Vol] 21 mmol/L Normal 21-31 [facility] Comment on above: Order Comment: No: D o not add to previous draw Performed By: #### 1 0070, 23746, 57861 ####[facility] [place] [address], [facility] Creatinine [Mass/Vol] 1.15 mg/dL Normal 0.70-1.30 [facility] Comment on above: Order Comment: No: D o not add to previous draw Performed By: #### 1 0070, 71991, 14664 ####[facility] [place] [address], [facility] GFR/1.73 sq M.predicted among blacks MDRD (S/P/Bld) [Vol rate/Area] mL/min/{1.73_m2} Normal >60 [facility] Comment on above: Order Comment: No: D o not add to previous draw Result Comment: Calc ulation may not be valid for patients over 70 years Performed By: #### 1 0070, 92184, 93599 ####[facility] [place] [address], [facility] GFR/1.73 sq M.predicted among non-blacks MDRD (S/P/Bld) [Vol rate/Area] mL/min/{1.73_m2} Normal >60 [facility] Comment on above: Order Comment: No: D o not add to previous draw Result Comment: Calc ulation may not be valid for patients over 70 years Performed By: #### 1 0070, 36298, 23830 ####[facility] [place] [address], [place] Glucose [Mass/Vol] 224 mg/dL High 70-100 [facility] Comment on above: Order Comment: No: D o not add to previous draw Performed By: #### 1 0070, 28144, 23828 ####[facility] [place] [address], [place] Potassium [Moles/Vol] 3.9 mmol/L Normal 3.5-5.1 [facility] Comment on above: Order Comment: No: D o not add to previous draw Performed By: #### 1 0070, 08083, 43209 ####[facility] [place] [address], [place] Sodium [Moles/Vol] 134 mmol/L Low 136-145 [facility] Comment on above: Order Comment: No: D o not add to previous draw Performed By: #### 1 0070, 36563, 04205 ####[facility] [place] [address], [place] Urea nitrogen [Mass/Vol] 22 mg/dL Normal 7-25 [facility] Comment on above: Order Comment: No: D o not add to previous draw Performed By: #### 1 0070, 91840, 34916 ####[facility] [place] [address], [facility] Calcium [Mass/Vol] 7.7 mg/dL Low 8.6-10.3 [facility] Comment on above: Performed By: #### 1 0070, 10339, 60928 ####[facility] [id number], [place] Chloride [Moles/Vol] 105 mmol/L Normal 98-107 [facility] Comment on above: Performed By: #### 1 0070, 83233, 35222 ####[facility] [place] [address], [place] CO2 [Moles/Vol] 24 mmol/L Normal 21-31 [facility] Comment on above: Performed By: #### 1 0070, 65282, 87724 ####[facility] [place] [address], [place] Creatinine [Mass/Vol] 0.81 mg/dL Normal 0.70-1.30 [facility] Comment on above: Performed By: #### 1 0070, 80330, 06844 ####[facility] [place] [address], [place] GFR/1.73 sq M.predicted among blacks MDRD (S/P/Bld) [Vol rate/Area] mL/min/{1.73_m2} Normal >60 [facility] Comment on above: Result Comment: Calc ulation may not be valid for patients over 70 years Performed By: #### 1 0070, 49495, 30094 ####[facility] [place] [address], [place] GFR/1.73 sq M.predicted among non-blacks MDRD (S/P/Bld) [Vol rate/Area] mL/min/{1.73_m2} Normal >60 [facility] Comment on above: Result Comment: Calc ulation may not be valid for patients over 70 years Performed By: #### 1 0070, 18821, 58738 ####[facility] [place] [address], [place] Glucose [Mass/Vol] 189 mg/dL High 70-100 [facility] Comment on above: Performed By: #### 1 0070, 32406, 67563 ####[facility] [place] [address], [place] Potassium [Moles/Vol] 4.3 mmol/L Normal 3.5-5.1 [facility] Comment on above: Performed By: #### 1 0070, 19421, 73469 ####[facility] [place] [address], [place] Sodium [Moles/Vol] 133 mmol/L Low 136-145 [facility] Comment on above: Performed By: #### 1 0070, 79059, 76357 ####[facility] [place] [address], [place] Urea nitrogen [Mass/Vol] 20 mg/dL Normal 7-25 [facility] Comment on above: Performed By: #### 1 0070, 23632, 15977 ####[facility] [place] [address], [place] Calcium [Mass/Vol] 8.7 mg/dL Normal 8.6-10.3 [facility] Comment on above: Order Comment: No: D o not add to previous draw Performed By: #### 0 0071, 46587, 41108 ####[facility] [place] [address], [place] Chloride [Moles/Vol] 103 mmol/L Normal 98-107 [facility] Comment on above: Order Comment: No: D o not add to previous draw Performed By: #### 0 0071, 81489, 58707 ####[facility] [place] [address], [facility] CO2 [Moles/Vol] 26 mmol/L Normal 21-31 [facility] Comment on above: Order Comment: No: D o not add to previous draw Performed By: #### 0 0071, 55917, 69984 ####[facility] [place] [address], [facility] Creatinine [Mass/Vol] 0.74 mg/dL Normal 0.70-1.30 [facility] Comment on above: Order Comment: No: D o not add to previous draw Performed By: #### 0 0071, 77990, 25415 ####[facility] [place] [address], [facility] GFR/1.73 sq M.predicted among blacks MDRD (S/P/Bld) [Vol rate/Area] mL/min/{1.73_m2} Normal >60 [facility] Comment on above: Order Comment: No: D o not add to previous draw Result Comment: Calc ulation may not be valid for patients over 70 years Performed By: #### 0 0071, 32591, 66368 ####[facility] [facility] [place] [address], [facility] GFR/1.73 sq M.predicted among non-blacks MDRD (S/P/Bld) [Vol rate/Area] mL/min/{1.73_m2} Normal >60 [facility] Comment on above: Order Comment: No: D o not add to previous draw Result Comment: Calc ulation may not be valid for patients over 70 years Performed By: #### 0 0071, 28686, 45839 ####[facility] [place] [address], [place] Glucose [Mass/Vol] 107 mg/dL High 70-100 [facility] Comment on above: Order Comment: No: D o not add to previous draw Performed By: #### 0 0071, 95096, 14305 ####[facility] [place] [address], [facility] Potassium [Moles/Vol] 4.1 mmol/L Normal 3.5-5.1 [facility] Comment on above: Order Comment: No: D o not add to previous draw Performed By: #### 0 0071, 82741, 45447 ####[facility] [place] [address], [facility] Sodium [Moles/Vol] 133 mmol/L Low 136-145 [facility] Comment on above: Order Comment: No: D o not add to previous draw Performed By: #### 0 0071, 32998, 92448 ####[facility] [id number], [facility] Urea nitrogen [Mass/Vol] 19 mg/dL Normal 7-25 [facility] Comment on above: Order Comment: No: D o not add to previous draw Performed By: #### 0 0071, 30891, 82826 ####[facility] [place] [address], [facility] CBC COMPLETE BLOOD COUNTon 0 04-08-2021 Erythrocyte distribution width (RBC) [Ratio] 14.4 % Normal 11.5-15.0 [facility] Comment on above: Order Comment: No: D o not add to previous draw Performed By: #### 5 0608 ####[facility] [id number], [facility] Hematocrit (Bld) [Volume fraction] 33.4 % Low 39.0-50.0 [facility] Comment on above: Order Comment: No: D o not add to previous draw Performed By: #### 5 0608 ####[place] [address] [id number], [facility] Hemoglobin (Bld) [Mass/Vol] 10.9 g/dL Low 13.0-17.0 [facility] Comment on above: Order Comment: No: D o not add to previous draw Performed By: #### 5 0608 ####[facility] [place] [address] MCH (RBC) [Entitic mass] 30.4 pg Normal 27.0-33.0 [facility] Comment on above: Order Comment: No: D o not add to previous draw Performed By: #### 5 0608 ####[facility] MCHC (RBC) [Mass/Vol] 32.6 g/dL Normal 32.0-35.0 [facility] Comment on above: Order Comment: No: D o not add to previous draw Performed By: #### 5 0608 ####[facility] MCV (RBC) [Entitic vol] 93.3 fL Normal 82.0-98.0 [facility] Comment on above: Order Comment: No: D o not add to previous draw Performed By: #### 5 0608 ####[place] [address] [address] Nucleated RBC/100 WBC (Bld) [Ratio] 0 % Normal 0-0 [facility] Comment on above: Order Comment: No: D o not add to previous draw Performed By: #### 5 0608 ####[facility] PLAT CNT 228 10*3/uL Normal 150-400 [facility] Comment on above: Order Comment: No: D o not add to previous draw Performed By: #### 5 0608 ####[facility] [place] [address] RBC (Bld) [#/Vol] 3.58 10*6/uL Low 4.20-5.70 [facility] Comment on above: Order Comment: No: D o not add to previous draw Performed By: #### 5 0608 ####[facility] [facility].[address] WBC (Bld) [#/Vol] 18.53 10*3/uL High 4.00-10.60 [facility] Comment on above: Order Comment: No: D o not add to previous draw Performed By: #### 5 0608 ####[facility] Erythrocyte distribution width (RBC) [Ratio] 14.6 % Normal 11.5-15.0 [facility] Comment on above: Performed By: #### 5 0608 ####[address] Hematocrit (Bld) [Volume fraction] 35.5 % Low 39.0-50.0 [facility] Comment on above: Performed By: #### 5 0608 ####[address] Hemoglobin (Bld) [Mass/Vol] 11.5 g/dL Low 13.0-17.0 [facility] Comment on above: Performed By: #### 5 0608 ####[place] [address] [facility].[address] MCH (RBC) [Entitic mass] 30.5 pg Normal 27.0-33.0 [facility] Comment on above: Performed By: #### 5 0608 ####[address] MCHC (RBC) [Mass/Vol] 32.4 g/dL Normal 32.0-35.0 [facility] Comment on above: Performed By: #### 5 0608 ####[address] [place] [address], [place] MCV (RBC) [Entitic vol] 94.2 fL Normal 82.0-98.0 [facility] Comment on above: Performed By: #### 5 0608 ####[facility] [facility].[address] Nucleated RBC/100 WBC (Bld) [Ratio] 0 % Normal 0-0 [facility] Comment on above: Performed By: #### 5 0608 ####[facility] [facility].[address] PLAT CNT 219 10*3/uL Normal 150-400 [facility] Comment on above: Performed By: #### 5 0608 ####[facility] [facility].[address] RBC (Bld) [#/Vol] 3.77 10*6/uL Low 4.20-5.70 [facility] Comment on above: Performed By: #### 5 0608 ####[facility] [facility].[address] WBC (Bld) [#/Vol] 14.37 10*3/uL High 4.00-10.60 [facility] Comment on above: Performed By: #### 5 0608 ####[facility] [facility].[address] Erythrocyte distribution width (RBC) [Ratio] 14.7 % Normal 11.5-15.0 [facility] Comment on above: Order Comment: No: D o not add to previous draw Performed By: #### 5 0608 ####[facility] [facility].[address] Hematocrit (Bld) [Volume fraction] 40.7 % Normal 39.0-50.0 [facility] Comment on above: Order Comment: No: D o not add to previous draw Performed By: #### 5 0608 ####[facility] Hemoglobin (Bld) [Mass/Vol] 13.5 g/dL Normal 13.0-17.0 [facility] Comment on above: Order Comment: No: D o not add to previous draw Performed By: #### 5 0608 ####[facility] MCH (RBC) [Entitic mass] 30.5 pg Normal 27.0-33.0 [facility] Comment on above: Order Comment: No: D o not add to previous draw Performed By: #### 5 0608 ####[address] MCHC (RBC) [Mass/Vol] 33.2 g/dL Normal 32.0-35.0 [facility] Comment on above: Order Comment: No: D o not add to previous draw Performed By: #### 5 0608 ####[address] MCV (RBC) [Entitic vol] 92.1 fL Normal 82.0-98.0 [facility] Comment on above: Order Comment: No: D o not add to previous draw Performed By: #### 5 0608 ####[address] Nucleated RBC/100 WBC (Bld) [Ratio] 0 % Normal 0-0 [facility] Comment on above: Order Comment: No: D o not add to previous draw Performed By: #### 5 0608 ####[address] PLAT CNT 233 10*3/uL Normal 150-400 [facility] Comment on above: Order Comment: No: D o not add to previous draw Performed By: #### 5 0608 ####[facility] [place] [address], [facility] RBC (Bld) [#/Vol] 4.42 10*6/uL Normal 4.20-5.70 [facility] Comment on above: Order Comment: No: D o not add to previous draw Performed By: #### 5 0608 ####[facility] [facility] [place] [address], [facility] WBC (Bld) [#/Vol] 7.11 10*3/uL Normal 4.00-10.60 [facility] Comment on above: Order Comment: No: D o not add to previous draw Performed By: #### 5 0608 ####[facility] [facility] COOXIMETRYon 04-08-2021 COHB 1 % Normal [facility] Comment on above: Performed By: #### 7 0207 ####[place] [address] [facility].[address] METHB 1 % Normal [facility] Comment on above: Performed By: #### 7 0207 ####[place] [address] [facility].[address] Oxygen saturation in Blood 77.5 % High 65.0-75.0 [facility] Comment on above: Performed By: #### 7 0207 ####[facility] [facility].[address] THB 10.7 g/dL Normal [facility] Comment on above: Performed By: #### 7 0207 ####[place] [address] [facility] [place] [address], [facility] FERRITINon 04-08-2021 Ferritin [Mass/Vol] 116 ng/mL Normal 24-336 [facility] Comment on above: Performed By: #### 1 0070, 52916, 16068 ####[facility] [place] [address], [place] FIBRINOGENon 04-08-2021 FIBRINOGEN 362 mg/dL Normal 150-425 [facility] Comment on above: Performed By: #### 5 7307, 91386, 99385 ####[facility] [place] [address], [place] LACTATE BLOODon 04-08-2021 Lactate [Moles/Vol] 3.7 mmol/L High .5-2.2 [facility] Comment on above: Order Comment: No: D o not add to previous draw Result Comment: M-CR ITICAL RESULT(S) REVIEWED, CALLED TO AND READ BACK BY Kleber TRAN at 2203. Performed By: #### 1 0054 ####[facility] [place] [address], [place] Lactate [Moles/Vol] 2.5 mmol/L High .5-2.2 [facility] Comment on above: Order Comment: No: D o not add to previous draw Performed By: #### 1 0054 ####[facility] [place] [address], [place] Lactate [Moles/Vol] 1.0 mmol/L Normal .5-2.2 [facility] Comment on above: Performed By: #### 1 0054 ####[facility] [place] [address], [place] MAGNESIUM BLOODon 04-08-2021 Magnesium [Mass/Vol] 2.3 mg/dL Normal 1.9-2.7 [facility] Comment on above: Order Comment: No: D o not add to previous draw Performed By: #### 1 0070, 24090, 24912 ####[facility] [place] [address], [place] Magnesium [Mass/Vol] 1.9 mg/dL Normal 1.9-2.7 [facility] Comment on above: Performed By: #### 1 0070, 89943, 93393 ####[facility] [place] [address], [facility] Magnesium [Mass/Vol] 2.2 mg/dL Normal 1.9-2.7 [facility] Comment on above: Order Comment: No: D o not add to previous draw Performed By: #### 0 0071, 93514, 30784 ####[facility] [place] [address], [facility] PERFUSION BLOOD PANELon - BASE EXCESS -3.0 mmol/L Low -2.0-3.0 [facility] Comment on above: Performed By: #### 3 0738 ####[facility] [place] [address], [facility] Glucose [Mass/Vol] 193 mg/dL High 70-105 [facility] Comment on above: Performed By: #### 3 0738 ####[facility] [place] [address], [facility] Hematocrit (Bld) [Volume fraction] 36 % Low 38-51 [facility] Comment on above: Performed By: #### 3 0738 ####[facility] [place] [address], [facility] Hemoglobin (Bld) [Mass/Vol] 12.2 g/dL Normal 12.0-17.0 [facility] Comment on above: Performed By: #### 3 0738 ####[facility] [place] [address], [facility] IONIZED CALCIUM 1.22 mmol/L Normal 1.12-1.32 [facility] Comment on above: Performed By: #### 3 0738 ####[facility] [place] [address], [facility] Oxygen (Bld) [Partial pressure] 131.0 mm[Hg] High 80.0-105.0 [facility] Comment on above: Performed By: #### 3 0738 ####[facility] [place] [address], [facility] PCO2 51.6 mmHg High 35.0-45.0 [facility] Comment on above: Performed By: #### 3 0738 ####[facility] [place] [address], [facility] pH (Bld) 7.28 [pH] Low 7.35-7.45 [facility] Comment on above: Performed By: #### 3 0738 ####[facility] [place] [address], [facility] Potassium [Moles/Vol] 4.4 mmol/L Normal 3.5-4.9 [facility] Comment on above: Performed By: #### 3 0738 ####[facility] Sodium [Moles/Vol] 139 mmol/L Normal 138-146 [facility] Comment on above: Performed By: #### 3 0738 ####[facility] [place] [address], [facility] BASE EXCESS -2.0 mmol/L Normal -2.0-3.0 [facility] Comment on above: Performed By: #### 3 0738 ####[facility] [place] [address], [facility] Glucose [Mass/Vol] 156 mg/dL High 70-105 [facility] Comment on above: Performed By: #### 3 0738 ####[facility] [place] [address], [facility] Hematocrit (Bld) [Volume fraction] 36 % Low 38-51 [facility] Comment on above: Performed By: #### 3 0738 ####[facility] [place] [address], [facility] Hemoglobin (Bld) [Mass/Vol] 12.2 g/dL Normal 12.0-17.0 [facility] Comment on above: Performed By: #### 3 0738 ####[facility] [place] [address], [facility] IONIZED CALCIUM 1.17 mmol/L Normal 1.12-1.32 [facility] Comment on above: Performed By: #### 3 0738 ####[facility] [place] [address], [facility] Oxygen (Bld) [Partial pressure] 196.0 mm[Hg] High 80.0-105.0 [facility] Comment on above: Performed By: #### 3 0738 ####[place] [address] [facility] [place] [address], [facility] PCO2 46.9 mmHg High 35.0-45.0 [facility] Comment on above: Performed By: #### 3 0738 ####[facility] [facility] [place] [address], [facility] pH (Bld) 7.33 [pH] Low 7.35-7.45 [facility] Comment on above: Performed By: #### 3 0738 ####[facility] [place] [address], [facility] Potassium [Moles/Vol] 4.5 mmol/L Normal 3.5-4.9 [facility] Comment on above: Performed By: #### 3 0738 ####[facility] [place] [address], [facility] Sodium [Moles/Vol] 139 mmol/L Normal 138-146 [facility] Comment on above: Performed By: #### 3 0738 ####[facility] [place] [address], [facility] BASE EXCESS -1.0 mmol/L Normal -2.0-3.0 [facility] Comment on above: Performed By: #### 3 0738 ####[facility] [place] [address], [facility] Glucose [Mass/Vol] 133 mg/dL High 70-105 [facility] Comment on above: Performed By: #### 3 0738 ####[facility] [facility] [place] [address], [facility] Hematocrit (Bld) [Volume fraction] 37 % Low 38-51 [facility] Comment on above: Performed By: #### 3 0738 ####[facility] [facility] [place] [address], [facility] Hemoglobin (Bld) [Mass/Vol] 12.6 g/dL Normal 12.0-17.0 [facility] Comment on above: Performed By: #### 3 0738 ####[facility] [facility] [place] [address], [facility] IONIZED CALCIUM 1.19 mmol/L Normal 1.12-1.32 [facility] Comment on above: Performed By: #### 3 0738 ####[facility] [facility] [place] [address], [facility] Oxygen (Bld) [Partial pressure] 184.0 mm[Hg] High 80.0-105.0 [facility] Comment on above: Performed By: #### 3 0738 ####[facility] [facility] [place] [address], [facility] PCO2 46.6 mmHg High 35.0-45.0 [facility] Comment on above: Performed By: #### 3 0738 ####[facility] [facility] [place] [address], [facility] pH (Bld) 7.34 [pH] Low 7.35-7.45 [facility] Comment on above: Performed By: #### 3 0738 ####[facility] [facility].[address] Potassium [Moles/Vol] 4.3 mmol/L Normal 3.5-4.9 [facility] Comment on above: Performed By: #### 3 0738 ####[facility] [facility] Sodium [Moles/Vol] 139 mmol/L Normal 138-146 [facility] Comment on above: Performed By: #### 3 0738 ####[facility] [facility].[address] BASE EXCESS -1.0 mmol/L Normal -2.0-3.0 [facility] Comment on above: Performed By: #### 3 0738 ####[place] [address] [facility].[address] Glucose [Mass/Vol] 118 mg/dL High 70-105 [facility] Comment on above: Performed By: #### 3 0738 ####[place] [address] [facility].[address] Hematocrit (Bld) [Volume fraction] 39 % Normal 38-51 [facility] Comment on above: Performed By: #### 3 0738 ####[facility] Hemoglobin (Bld) [Mass/Vol] 13.3 g/dL Normal 12.0-17.0 [facility] Comment on above: Performed By: #### 3 0738 ####[place] [address] [facility].[address] IONIZED CALCIUM 1.17 mmol/L Normal 1.12-1.32 [facility] Comment on above: Performed By: #### 3 0738 ####[facility] [place] [address], [facility] Oxygen (Bld) [Partial pressure] 96.0 mm[Hg] Normal 80.0-105.0 [facility] Comment on above: Performed By: #### 3 0738 ####[facility] [place] [address], [facility] PCO2 41.2 mmHg Normal 35.0-45.0 [facility] Comment on above: Performed By: #### 3 0738 ####[facility] [facility] [place] [address], [facility] pH (Bld) 7.38 [pH] Normal 7.35-7.45 [facility] Comment on above: Performed By: #### 3 0738 ####[place] [address] [facility] [place] [address], [facility] Potassium [Moles/Vol] 4.3 mmol/L Normal 3.5-4.9 [facility] Comment on above: Performed By: #### 3 0738 ####[facility] [facility] [place] [address], [facility] Sodium [Moles/Vol] 139 mmol/L Normal 138-146 [facility] Comment on above: Performed By: #### 3 0738 ####[facility] [facility] [place] [address], [facility] PHOSPHORUS BLOODon 1 Phosphate [Mass/Vol] 4.0 mg/dL Normal 2.5-5.0 [facility] Comment on above: Order Comment: No: D o not add to previous draw Performed By: #### 1 0070, 89257, 24004 ####[facility] [place] [address], [place] Phosphate [Mass/Vol] 3.8 mg/dL Normal 2.5-5.0 [facility] Comment on above: Order Comment: No: D o not add to previous draw Performed By: #### 0 0071, 86464, 85684 ####[facility] [place] [address], [place] POC GLUCOSE LABon 04-08-2021 Glucose [Mass/Vol] 252 mg/dL High 70-100 [facility] Comment on above: Performed By: #### 8 5499 ####[facility] [place] [address], [place] Glucose [Mass/Vol] 240 mg/dL High 70-100 [facility] Comment on above: Performed By: #### 8 5499 ####[facility] [place] [address], [place] Glucose [Mass/Vol] 126 mg/dL High 70-100 [facility] Comment on above: Performed By: #### 8 5499 ####[facility] [place] [address], [place] Glucose [Mass/Vol] 178 mg/dL High 70-100 [facility] Comment on above: Performed By: #### 8 5499 ####[facility] [place] [address], [place] Glucose [Mass/Vol] 195 mg/dL High 70-100 [facility] Comment on above: Performed By: #### 8 5499 ####[facility] [place] [address], [place] Glucose [Mass/Vol] 113 mg/dL High 70-100 [facility] Comment on above: Performed By: #### 8 5499 ####[facility] [place] [address], [place] Glucose [Mass/Vol] 118 mg/dL High 70-100 [facility] Comment on above: Performed By: #### 8 5499 ####[facility] [place] [address], [place] PORTABLE CHEST 1 VIEWon 03-24 PORTABLE CHEST 1 VIEW Normal [facility] Comment on above: Order Comment: Check Chest Tube Position, ON ARRIVAL TO CVU PROTHROMBIN TIMEon INR Coag (PPP) [Relative time] 1.20 {INR} High 0.91-1.16 [facility] Comment on above: [...] OF ACTION, CLINICALEFFECTIVENESS, AND OPTIMAL THERAPEUTIC RANGE. [id number];108:231S-246S. Performed By: #### 5 6101, 82446 ####[facility] [facility] [place] [address], [facility] PT Coag (PPP) [Time] 15.2 s High 12.3-14.8 [facility] Comment on above: Order Comment: No: D o not add to previous draw Result Comment: ALL RESULTS MUST BE INTERPRETED WITH RESPECT TO BLOOD DRAWING ARTIFACTOR DILUTION ERROR OF ANTICOAGULANT AT THE TIME OF SAMPLING. Performed By: #### 5 6101, 14569 ####[facility] [facility] [place] [address], [facility] INR Coag (PPP) [Relative time] 1.23 {INR} High 0.91-1.16 [facility] Comment on above: Result Comment: [facility] P RECOMMENDED INR FOR WARFARIN THERAPY CONDITION INRPROPHYLAXIS OF VENOUS THROMBOSIS 2-3(HIGH-RISK SURGERY)TREATMENT OF VENOUS THROMBOSIS 2-3TREATMENT OF PULMONARY EMBOLISM 2-3PREVENTION OF SYSTEMIC EMBOLISM: 2-3 ACUTE MYOCARDIAL INFARCTION TISSUE HEART VALVES VALVULAR HEART DISEASE ATRIAL FIBRILLATION RECURRENT SYSTEMIC EMBOLISMMECHANICAL HEART VALVE 2.5-3.5 FROM: ORAL ANTICOAGULANTS. MECHANISM OF ACTION, CLINICALEFFECTIVENESS, AND OPTIMAL THERAPEUTIC RANGE. [id number];108:231S-246S. Performed By: #### 5 7307, 00031, 38335 ####[facility] [facility] [place] [address], [facility] PT Coag (PPP) [Time] 15.5 s High 12.3-14.8 [facility] Comment on above: Result Comment: ALL RESULTS MUST BE INTERPRETED WITH RESPECT TO BLOOD DRAWING ARTIFACTOR DILUTION ERROR OF ANTICOAGULANT AT THE TIME OF SAMPLING. Performed By: #### 5 7307, 28921, 10628 ####[facility] [facility] [place] [address], [facility] INR Coag (PPP) [Relative time] 1.05 {INR} Normal 0.91-1.16 [facility] Comment on above: Order Comment: No: D o not add to previous draw Result Comment: [facility] P RECOMMENDED INR FOR WARFARIN THERAPY CONDITION INRPROPHYLAXIS OF VENOUS THROMBOSIS 2-3(HIGH-RISK SURGERY)TREATMENT OF VENOUS THROMBOSIS 2-3TREATMENT OF PULMONARY EMBOLISM 2-3PREVENTION OF SYSTEMIC EMBOLISM: 2-3 ACUTE MYOCARDIAL INFARCTION TISSUE HEART VALVES VALVULAR HEART DISEASE ATRIAL FIBRILLATION RECURRENT SYSTEMIC EMBOLISMMECHANICAL HEART VALVE 2.5-3.5 FROM: ORAL ANTICOAGULANTS. MECHANISM OF ACTION, CLINICALEFFECTIVENESS, AND OPTIMAL THERAPEUTIC RANGE. [id number];108:231S-246S. Performed By: #### 5 6101 ####[facility] PT Coag (PPP) [Time] 13.7 s Normal 12.3-14.8 [facility] Comment on above: Order Comment: No: D o not add to previous draw Result Comment: ALL RESULTS MUST BE INTERPRETED WITH RESPECT TO BLOOD DRAWING ARTIFACTOR DILUTION ERROR OF ANTICOAGULANT AT THE TIME OF SAMPLING. Performed By: #### 5 6101 ####[facility] TROPONIN-Ion 04-08-2021 Troponin I.cardiac [Mass/Vol] 0.34 ng/mL Critically high 0.00-0.04 [facility] Comment on above: Order Comment: No: D o not add to previous draw Result Comment: M-TR OPONIN INITIAL CRITICAL HIGH; RESPUN AND RETESTEDM-CRITICAL RESULT(S) REVIEWED, CALLED TO AND READ BACK BY Kleber TRAN at [id number].REFERENCE RANGES: 0.00 - 0.04 ng/ml NORMAL 0.05 - 0.50 ng/ml INDETERMINATE > 0.50 ng/ml CONSISTENT WITH AN M.I. Performed By: #### 3 5280 ####[facility] [facility] [place] [address], [facility] POC GLUCOSE LABon 04-07-2021 Glucose [Mass/Vol] 121 mg/dL High 70-100 [facility] Comment on above: Performed By: #### 8 5499 ####[facility] [facility] [place] [address], [facility] Glucose [Mass/Vol] 165 mg/dL High 70-100 [facility] Comment on above: Performed By: #### 8 5499 ####[facility] [facility] [place] [address], [facility] Glucose [Mass/Vol] 109 mg/dL High 70-100 [facility] Comment on above: Performed By: #### 8 5499 ####[facility] [facility] [place] [address], [facility] POC SARS COV2 ANTIGEN NEGATI VEon 04-07-2021 POC SARS COV2 ANTIGEN NEG Negative Normal NEGATIVE [facility] Comment on above: Result Comment: [...] of clinicalsigns and symptoms consistent with COVID-19.The [employer] COVID-19 Ag Card is a lateral flow immunoassay intended forthe qualitative detection of nucleocapsid protein antigen [id number] in direct nasal swabs from individuals within [...] Certificate ofAccreditation. Performed By: #### 3 1977 ####[facility] [facility].[address] Pulmonary Functionon 021 Pulmonary Function Normal [facility] RBC'S 4 UNITSon 04-07-2021 CROSSMATCH INTERP 1 COMP Normal [facility] Comment on above: Performed By: #### 8 6004 ####[facility] [place] [address], [facility] CROSSMATCH INTERP 2 COMP Normal [facility] Comment on above: Performed By: #### 8 6004 ####[facility] [facility] [place] [address], [facility] CROSSMATCH INTERP 3 COMP Normal [facility] Comment on above: Performed By: #### 8 6004 ####[facility] [facility] [place] [address], [facility] CROSSMATCH INTERP 4 COMP Normal [facility] Comment on above: Performed By: #### 8 6004 ####[facility] [facility] [place] [address], [facility] PRODUCT CODE 1 E0336 Normal [facility] Comment on above: Performed By: #### 8 6004 ####[facility] [facility] [place] [address], [facility] PRODUCT CODE 2 E0336 Normal [facility] Comment on above: Performed By: #### 8 6004 ####[facility] [facility] [place] [address], [facility] PRODUCT CODE 3 E0336 Normal [facility] Comment on above: Performed By: #### 8 6004 ####[facility] [place] [address], [facility] PRODUCT CODE 4 E0336 Normal [facility] Comment on above: Performed By: #### 8 6004 ####[facility] [place] [address], [facility] PRODUCT STATUS 1 RE Normal [facility] Comment on above: Result Comment: Resu lt changed by IF on 04/08/2021 12:37. The previous value was XM.Result changed by IF on 04/08/2021 16:53. The previous value was IS.Result changed by IF on 04/11/2021 11:14. The previous value was XM. Performed By: #### 8 6004 ####[facility] [place] [address], [facility] PRODUCT STATUS 2 RE Normal [facility] Comment on above: Result Comment: Resu lt changed by IF on 04/08/2021 12:37. The previous value was XM.Result changed by IF on 04/08/2021 16:53. The previous value was IS.Result changed by IF on 04/11/2021 11:14. The previous value was XM. Performed By: #### 8 6004 ####[facility] [facility] [place] [address], [facility] PRODUCT STATUS 3 RE Normal [facility] Comment on above: Result Comment: Resu lt changed by IF on 04/08/2021 12:37. The previous value was XM.Result changed by IF on 04/08/2021 16:53. The previous value was IS.Result changed by IF on 04/11/2021 11:14. The previous value was XM. Performed By: #### 8 6004 ####[facility] [place] [address], [facility] PRODUCT STATUS 4 RE Normal [facility] Comment on above: Result Comment: Resu lt changed by IF on 04/08/2021 12:37. The previous value was XM.Result changed by IF on 04/08/2021 16:53. The previous value was IS.Result changed by IF on 04/11/2021 11:14. The previous value was XM. Performed By: #### 8 6004 ####[facility] [place] [address], [facility] UNIT ABO 1 O Normal [facility] Comment on above: Performed By: #### 8 6004 ####[facility] [place] [address], [facility] UNIT ABO 2 O Normal [facility] Comment on above: Performed By: #### 8 6004 ####[facility] [place] [address], [facility] UNIT ABO 3 O Normal [facility] Comment on above: Performed By: #### 8 6004 ####[facility] [place] [address], [facility] UNIT ABO 4 O Normal [facility] Comment on above: Performed By: #### 8 6004 ####[facility] [place] [address], [facility] UNIT ID 1 [id number] Normal [facility] Comment on above: Performed By: #### 8 6004 ####[facility] [place] [address], [facility] UNIT ID 2 [id number] Normal [facility] Comment on above: Performed By: #### 8 6004 ####[facility] [place] [address], [facility] UNIT ID 3 [id number] Normal [facility] Comment on above: Performed By: #### 8 6004 ####[facility] [place] [address], [facility] UNIT ID 4 [id number] Normal [facility] Comment on above: Performed By: #### 8 6004 ####[facility] [place] [address], [facility] UNIT RH 1 Positive Normal [facility] Comment on above: Performed By: #### 8 6004 ####[facility] [place] [address], [facility] UNIT RH 2 Positive Normal [facility] Comment on above: Performed By: #### 8 6004 ####[facility] [place] [address], [facility] UNIT RH 3 Positive Normal [facility] Comment on above: Performed By: #### 8 6004 ####[facility] [place] [address], [facility] UNIT RH 4 Positive Normal [facility] Comment on above: Performed By: #### 8 6004 ####[facility] [place] [address], [facility] TYPE AND SCREENon 04-07-2021 ABO INTERPRETATION O Normal [facility] Comment on above: Performed By: #### 6 2586 ####[facility] [place] [address], [facility] RH INTERPRETATION Positive Normal [facility] Comment on above: Performed By: #### 6 2586 ####[facility] [place] [address], [facility] *MRSA/MSSA DNA NASALon 04-06 *MRSA/MSSA DNA NASAL Clinical Report: (D ) Specimen: NASAL SWAB Collected: 04/06/2021 12:43 Status: Final Last Updated: 04/06/2021 16:01 MSSA DNA (Final) Negative MRSA DNA (Final) Negative Normal [facility] Comment on above: Performed By: #### 3 1595 ####[facility] [place] [address], [facility] BASIC METABOLIC PANELon 08- Calcium [Mass/Vol] 8.9 mg/dL Normal 8.6-10.3 [facility] Comment on above: Order Comment: No: D o not add to previous draw Performed By: #### 1 0, 82011 ####[facility] [place] [address], [facility] Chloride [Moles/Vol] 103 mmol/L Normal 98-107 [facility] Comment on above: Order Comment: No: D o not add to previous draw Performed By: #### 1 0, 57999 ####[facility] [place] [address], [facility] CO2 [Moles/Vol] 26 mmol/L Normal 21-31 [facility] Comment on above: Order Comment: No: D o not add to previous draw Performed By: #### 1 0, 09158 ####[facility] [place] [address], [facility] Creatinine [Mass/Vol] 0.78 mg/dL Normal 0.70-1.30 [facility] Comment on above: Order Comment: No: D o not add to previous draw Performed By: #### 1 0, 39223 ####[facility] [place] [address], [facility] GFR/1.73 sq M.predicted among blacks MDRD (S/P/Bld) [Vol rate/Area] mL/min/{1.73_m2} Normal >60 [facility] Comment on above: Order Comment: No: D o not add to previous draw Result Comment: Calc ulation may not be valid for patients over 70 years Performed By: #### 1 69, 33819 ####[facility] [place] [address], [facility] GFR/1.73 sq M.predicted among non-blacks MDRD (S/P/Bld) [Vol rate/Area] mL/min/{1.73_m2} Normal >60 [facility] Comment on above: Order Comment: No: D o not add to previous draw Result Comment: Calc ulation may not be valid for patients over 70 years Performed By: #### 1 69, 90717 ####[facility] [place] [address], [facility] Glucose [Mass/Vol] 101 mg/dL High 70-100 [facility] Comment on above: Order Comment: No: D o not add to previous draw Performed By: #### 1 69, 33019 ####[facility] [place] [address], [facility] Potassium [Moles/Vol] 4.1 mmol/L Normal 3.5-5.1 [facility] Comment on above: Order Comment: No: D o not add to previous draw Performed By: #### 1 69, 82118 ####[facility] Sodium [Moles/Vol] 134 mmol/L Low 136-145 [facility] Comment on above: Order Comment: No: D o not add to previous draw Performed By: #### 1 69, 24960 ####[facility] Urea nitrogen [Mass/Vol] 20 mg/dL Normal 7-25 [facility] Comment on above: Order Comment: No: D o not add to previous draw Performed By: #### 1 69, 57597 ####[facility] [facility] CBC COMPLETE BLOOD COUNTon 0 04-06-2021 Erythrocyte distribution width (RBC) [Ratio] 15.3 % High 11.5-15.0 [facility] Comment on above: Order Comment: No: D o not add to previous draw Performed By: #### 5 0608 ####[facility] Hematocrit (Bld) [Volume fraction] 43.0 % Normal 39.0-50.0 [facility] Comment on above: Order Comment: No: D o not add to previous draw Performed By: #### 5 0608 ####[facility] Hemoglobin (Bld) [Mass/Vol] 14.3 g/dL Normal 13.0-17.0 [facility] Comment on above: Order Comment: No: D o not add to previous draw Performed By: #### 5 0608 ####[facility] MCH (RBC) [Entitic mass] 30.6 pg Normal 27.0-33.0 [facility] Comment on above: Order Comment: No: D o not add to previous draw Performed By: #### 5 0608 ####[place] [address] MCHC (RBC) [Mass/Vol] 33.3 g/dL Normal 32.0-35.0 [facility] Comment on above: Order Comment: No: D o not add to previous draw Performed By: #### 5 0608 ####[address] MCV (RBC) [Entitic vol] 92.1 fL Normal 82.0-98.0 [facility] Comment on above: Order Comment: No: D o not add to previous draw Performed By: #### 5 0608 ####[address] Nucleated RBC/100 WBC (Bld) [Ratio] 0 % Normal 0-0 [facility] Comment on above: Order Comment: No: D o not add to previous draw Performed By: #### 5 0608 ####[address] PLAT CNT 238 10*3/uL Normal 150-400 [facility] Comment on above: Order Comment: No: D o not add to previous draw Performed By: #### 5 0608 ####[facility] [place] [address], [facility] RBC (Bld) [#/Vol] 4.67 10*6/uL Normal 4.20-5.70 [facility] Comment on above: Order Comment: No: D o not add to previous draw Performed By: #### 5 0608 ####[facility] [place] [address], [facility] WBC (Bld) [#/Vol] 6.86 10*3/uL Normal 4.00-10.60 [facility] Comment on above: Order Comment: No: D o not add to previous draw Performed By: #### 5 0608 ####[facility] [place] [address], [facility] MAGNESIUM BLOODon 04-06-2021 Magnesium [Mass/Vol] 2.0 mg/dL Normal 1.9-2.7 [facility] Comment on above: Order Comment: No: D o not add to previous draw Performed By: #### 1 0070, 10086 ####[facility] [place] [address], [facility] POC GLUCOSE LABon 04-06-2021 Glucose [Mass/Vol] 118 mg/dL High 70-100 [facility] Comment on above: Performed By: #### 8 5499 ####[facility] [place] [address], [facility] Glucose [Mass/Vol] 108 mg/dL High 70-100 [facility] Comment on above: Performed By: #### 8 5499 ####[facility] [place] [address], [place] Glucose [Mass/Vol] 114 mg/dL High 70-100 [facility] Comment on above: Performed By: #### 8 5499 ####[facility] [facility] [place] [address], [facility] Glucose [Mass/Vol] 126 mg/dL High 70-100 [facility] Comment on above: Performed By: #### 8 5499 ####[facility] [facility] [place] [address], [facility] URINALYSIS REFLEXon 04-06-20 21 Appearance (U) CLEAR Normal CLEAR [facility] Comment on above: Order Comment: No: D o not add to previous drawCriteria for reflexing a culture was not met. Please call the lab [id number] within 24 hours of collection time if culture is needed Performed By: #### 3 0965 ####[place] [address] [facility] [place] [address], [facility] Bilirubin Ql (U) Negative Normal NEGATIVE [facility] Comment on above: Order Comment: No: D o not add to previous drawCriteria for reflexing a culture was not met. Please call the lab [phone] within 24 hours of collection time if culture is needed Performed By: #### 3 0965 ####[place] [address] [facility] [place] [address], [facility] Color (U) YELLOW Normal YELLOW [facility] Comment on above: Order Comment: No: D o not add to previous drawCriteria for reflexing a culture was not met. Please call the lab [id number] within 24 hours of collection time if culture is needed Performed By: #### 3 0965 ####[facility] [facility] [place] [address], [facility] Glucose Ql (U) Negative Normal NEGATIVE [facility] Comment on above: Order Comment: No: D o not add to previous drawCriteria for reflexing a culture was not met. Please call the lab [phone] within 24 hours of collection time if culture is needed Performed By: #### 3 0965 ####[address] [place] [address], [facility] Hemoglobin Ql (U) Negative Normal NEGATIVE [facility] Comment on above: Order Comment: No: D o not add to previous drawCriteria for reflexing a culture was not met. Please call the lab [phone] within 24 hours of collection time if culture is needed Performed By: #### 3 0965 ####[facility] [facility] [place] [address], [facility] KETONE Negative Normal NEGATIVE [facility] Comment on above: Order Comment: No: D o not add to previous drawCriteria for reflexing a culture was not met. Please call the lab [id number] within 24 hours of collection time if culture is needed Performed By: #### 3 [id number] ####[facility] [facility] [place] [address], [place] JESS Negative Normal NEGATIVE [facility] Comment on above: Order Comment: No: D o not add to previous drawCriteria for reflexing a culture was not met. Please call the lab [phone] within 24 hours of collection time if culture is needed Performed By: #### 3 [id number] ####[facility] [facility] [place] [address], [facility] MICRO NOT DONE Normal [facility] Comment on above: Order Comment: No: D o not add to previous drawCriteria for reflexing a culture was not met. Please call the lab [id number] within 24 hours of collection time if culture is needed Result Comment: Micr oscopics not performed on urines withnegative chemical reactions unless requested in original order Performed By: #### 3 [id number] ####[facility] [facility] [place] [address], [facility] Nitrite Ql (U) Negative Normal NEGATIVE [facility] Comment on above: Order Comment: No: D o not add to previous drawCriteria for reflexing a culture was not met. Please call the lab [email or web address] within 24 hours of collection time if culture is needed Performed By: #### 3 [id number] ####[facility] [facility] [place] [address], [facility] pH (U) 6.0 [pH] Normal 5.0-8.0 [facility] Comment on above: Order Comment: No: D o not add to previous drawCriteria for reflexing a culture was not met. Please call the lab [phone] within 24 hours of collection time if culture is needed Performed By: #### 3 [id number] ####[facility] Protein Ql (U) Negative Normal NEGATIVE [facility] Comment on above: Order Comment: No: D o not add to previous drawCriteria for reflexing a culture was not met. Please call the lab [id number] within 24 hours of collection time if culture is needed Performed By: #### 3 [id number] ####[facility] SPEC GRAV 1.019 Normal 1.015-1.020 [facility] Comment on above: Order Comment: No: D o not add to previous drawCriteria for reflexing a culture was not met. Please call the lab [id number] within 24 hours of collection time if culture is needed Performed By: #### 3 [id number] ####[facility] Vital Signs Date Time Vital Sign Value Performing Clinician Facility 06-05-2025 10: Body height 177.8 cm Teressa Sierra VOCATIONAL COUNSELOR-C Work Phone: [facility] 06-05-2025 10:05040 Body mass index (BMI) [Ratio] 45.5 kg/m2 Teressa Sierra VOCATIONAL COUNSELOR-C Work Phone: [facility] 06-05-2025 10:05040 Body temperature 98.5 [degF] Teressa Sierra VOCATIONAL COUNSELOR-C Work Phone: [facility] 06-05-2025 10:05040 Body weight 143.9 kg Teressa Sierra VOCATIONAL COUNSELOR-C Work Phone: [facility] 06-05-2025 10:05-0400 Diastolic blood pressure 48 mm[Hg] Teressa Aichholz VOCATIONAL COUNSELOR-C Work Phone: [facility] 06-05-2025 10:05-0400 Heart rate 74 /min Teressa Aichholz VOCATIONAL COUNSELOR-C Work Phone: [facility] 06-05-2025 10:05-0400 Respiratory rate 22 /min Teressa Aichholz VOCATIONAL COUNSELOR-C Work Phone: [facility] 06-05-2025 10:05-0400 SaO2% (BldA) [Mass fraction] 94 % Teressa Aichholz VOCATIONAL COUNSELOR-C Work Phone: [facility] 06-05-2025 10:05-0400 Systolic blood pressure 98 mm[Hg] Teressa Aichholz VOCATIONAL COUNSELOR-C Work Phone: [facility] 05-31-2025 11:52-0400 Body height 177.8 cm Teressa Aichholz VOCATIONAL COUNSELOR-C Work Phone: [facility] 05-31-2025 11:52-0400 Body mass index (BMI) [Ratio] 45.9 kg/m2 Teressa Aichholz VOCATIONAL COUNSELOR-C Work Phone: [facility] 05-31-2025 11:52-0400 Body temperature 96.4 [degF] Teressa Aichholz VOCATIONAL COUNSELOR-C Work Phone: [facility] 05-31-2025 11:52-0400 Body weight 145.14 kg Teressa Aichholz VOCATIONAL COUNSELOR-C Work Phone: [facility] 05-31-2025 11:52-0400 Diastolic blood pressure 72 mm[Hg] Teressa Aichholz VOCATIONAL COUNSELOR-C Work Phone: [facility] 05-31-2025 11:52-0400 Heart rate 66 /min Teressa Aichholz VOCATIONAL COUNSELOR-C Work Phone: [facility] 05-31-2025 11:52-0400 SaO2% (BldA) [Mass fraction] 99 % Teressa Aichholz VOCATIONAL COUNSELOR-C Work Phone: [facility] 05-31-2025 11:52-0400 Systolic blood pressure 110 mm[Hg] Teressa Aichholz VOCATIONAL COUNSELOR-C Work Phone: [facility] 03-21-2025 15:10-0400 Body mass index (BMI) [Ratio] 46.28 kg/m2 Teressa Aichholz VOCATIONAL COUNSELOR Work Phone: [facility] 03-21-2025 15:10-0400 Body temperature 98.1 [degF] Teressa Aichholz VOCATIONAL COUNSELOR Work Phone: [facility] 03-21-2025 15:10-0400 Body weight 148.42 kg Teressa Aichholz VOCATIONAL COUNSELOR Work Phone: [facility] 03-21-2025 15:10-0400 Diastolic blood pressure 68 mm[Hg] Teressa Aichholz VOCATIONAL COUNSELOR Work Phone: [facility] 03-21-2025 15:10-0400 Heart rate 59 /min Teressa Aichholz VOCATIONAL COUNSELOR Work Phone: [facility] 03-21-2025 15:10-0400 Respiratory rate 24 /min Teressa Aichholz VOCATIONAL COUNSELOR Work Phone: [facility] 03-21-2025 15:10-0400 SaO2% (BldA) [Mass fraction] 94 % Teressa Aichholz VOCATIONAL COUNSELOR Work Phone: [facility] 03-21-2025 15:10-0400 Systolic blood pressure 110 mm[Hg] Teressa Aichholz VOCATIONAL COUNSELOR Work Phone: [facility] 12-19-2024 16:59-0400 Body mass index (BMI) [Ratio] 45.75 kg/m2 Teressa Aichholz VOCATIONAL COUNSELOR Work Phone: [facility] 12-19-2024 16:59-0400 Body temperature 97.81 [degF] Teressa Mariez VOCATIONAL COUNSELOR Work Phone: [facility] 12-19-2024 16:59-0400 Body weight 146.69 kg Teressalloyd Mariez VOCATIONAL COUNSELOR Work Phone: [facility] 12-19-2024 16:59-0400 Diastolic blood pressure 66 mm[Hg] Teressa Adolphholz VOCATIONAL COUNSELOR Work Phone: [facility] 12-19-2024 16:59-0400 Heart rate 59 /min Teressa Adolphholz VOCATIONAL COUNSELOR Work Phone: [facility] 12-19-2024 16:59-0400 Respiratory rate 26 /min Teressa Adolphholz VOCATIONAL COUNSELOR Work Phone: [facility] 12-19-2024 16:59-0400 SaO2% (BldA) [Mass fraction] 94 % Teressalloyd Farfanholz VOCATIONAL COUNSELOR Work Phone: [facility] 12-19-2024 16:59-0400 Systolic blood pressure 112 mm[Hg] Teressa Adolphholz VOCATIONAL COUNSELOR Work Phone: [facility] 09-27-2024 14:06-0500 Body height 179.1 cm Teressalloyd Farfanholz VOCATIONAL COUNSELOR Work Phone: [facility] 09-27-2024 14:06-0500 Body mass index (BMI) [Ratio] 45.83 kg/m2 Teressa Adolphholz VOCATIONAL COUNSELOR Work Phone: [facility] 09-27-2024 14:06-0500 Body temperature 97.81 [degF] Teressa Adolphholz VOCATIONAL COUNSELOR Work Phone: [facility] 09-27-2024 14:06-0500 Body weight 146.97 kg Teressa Adolphholz VOCATIONAL COUNSELOR Work Phone: [facility] 09-27-2024 14:06-0500 Diastolic blood pressure 74 mm[Hg] Teressa Aichholz VOCATIONAL COUNSELOR Work Phone: [facility] 09-27-2024 14:06-0500 Heart rate 83 /min Teressa Adolphholz VOCATIONAL COUNSELOR Work Phone: [facility] 09-27-2024 14:06-0500 Respiratory rate 24 /min Teressa Adolphholz VOCATIONAL COUNSELOR Work Phone: [facility] 09-27-2024 14:06-0500 SaO2% (BldA) [Mass fraction] 92 % Teressa Samanthahholz VOCATIONAL COUNSELOR Work Phone: [facility] 09-27-2024 14:06-0500 Systolic blood pressure 132 mm[Hg] Teressa Aichholz VOCATIONAL COUNSELOR Work Phone: [facility] 06-01-2024 15:17-0400 Body height 179.1 cm Teressa Samanthahholz VOCATIONAL COUNSELOR Work Phone: [facility] 06-01-2024 15:17-0400 Body mass index (BMI) [Ratio] 45.52 kg/m2 Teressa Samanthahholz VOCATIONAL COUNSELOR Work Phone: [facility] 06-01-2024 15:17-0400 Body temperature 98.49 [degF] Teressa Aichholz VOCATIONAL COUNSELOR Work Phone: [facility] 06-01-2024 15:17-0400 Body weight 145.97 kg Teressa Samanthahholz VOCATIONAL COUNSELOR Work Phone: [facility] 06-01-2024 15:17-0400 Diastolic blood pressure 68 mm[Hg] Teressa Samanthahholz VOCATIONAL COUNSELOR Work Phone: [facility] 06-01-2024 15:17-0400 Heart rate 62 /min Teressa Aichholz VOCATIONAL COUNSELOR Work Phone: [facility] 06-01-2024 15:17-0400 Respiratory rate 18 /min Teressa Aichholz VOCATIONAL COUNSELOR Work Phone: [facility] 06-01-2024 15:17-0400 SaO2% (BldA) [Mass fraction] 95 % Teressa Samanthahholz VOCATIONAL COUNSELOR Work Phone: [facility] 06-01-2024 15:17-0400 Systolic blood pressure 122 mm[Hg] Teressa Sierra VOCATIONAL COUNSELOR Work Phone: [facility] Healthcare Encounters Encounter Date Encounter Type Care Provider Facility Start: 06-05-2025 End: 06-05-2025 ambulatory Teressa Sierra VOCATIONAL COUNSELOR-C Work Phone: [facility] Work Phone: Start: 06-05-2025 End: 06-05-2025 Patient encounter procedure Teressa Sierra VOCATIONAL COUNSELOR-C -[facility] Work Phone: Start: 05-31-2025 End: 05-31-2025 Patient encounter procedure Biju Monroe MD -[facility]tras[facility] Start: 05-31-2025 End: 05-31-2025 ambulatory Teressa Sierra VOCATIONAL COUNSELOR-C Work Phone: [facility] Work Phone: Start: 05-31-2025 End: 05-31-2025 ambulatory Teressa Sierra VOCATIONAL COUNSELOR-C Work Phone: [facility] Work Phone: Start: 05-31-2025 End: 05-31-2025 Patient encounter procedure Biju Monroe MD -[facility] Work Phone: Start: 05-28-2025 Non-patient / Non-visit Lupe Perez DO -[facility] Work Phone: Start: 05-26-2025 Non-patient / Non-visit King diaz MD -[facility] Work Phone: Start: 05-25-2025 Non-patient / [facility]: Start: 05-24-2025 Non-patient / [facility] Work [facility]: Start: 05-23-2025 End: 05-23-2025 ambulatory King Aragon [facility] Work Phone: Start: 05-23-2025 End: 05-23-2025 Departed Referred King Aragon MD -[facility] Start: 05-23-2025 Non-patient / Non-visit Jefry Ramon -[facility] Work Phone: Start: 03-21-2025 End: 03-21-2025 Office outpatient visit 25 minutes Teressa Sierra VOCATIONAL COUNSELOR [facility] Phone[facility] Comment on above: Essential hypertensi on (Primary Dx); Obstructive sleep apnea syndrome; Chronic obstructive pulmonary disease, unspecified COPD type (HCC); Chronic diastolic (congestive) heart failure (HCC); 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 ; Bilateral lower extremity edema; Type 2 diabetes mellitus with stage 3 chronic kidney disease, without long-term current use of insulin, unspecified whether stage 3a or 3b CKD ([facility]); Morbid (severe) obesity due to excess calories ([facility]-HCC); MGUS (monoclonal gammopathy of unknown significance); 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 ; Mixed hyperlipidemia ; 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 Start: 03-21-2025 End: 03-21-2025 ambulatory TERESSA SIERRA Not Available Start: 03-21-2025 End: 03-21-2025 Bamboo flowsheet Teressa Sierra VOCATIONAL COUNSELOR Work Phone: [facility] Start: 03-21-2025 End: 03-21-2025 Bamboo flowsheet Teressa Sierra VOCATIONAL COUNSELOR Work Phone: [facility] Start: 02-21-2025 End: 02-21-2025 Clinisync Result Encounter Generic External Data Provider [facility] External Department Unsolicited Start: 02-21-2025 End: 02-21-2025 Clinisync Result Encounter Generic External Data Provider [facility] External Department Unsolicited Start: 02-08-2025 End: 02-08-2025 Bamboo flowsheet Adarsh Malik MD Work Phone: [facility] Start: 02-08-2025 End: 02-08-2025 Bamboo flowscarole Malik MD Work Phone: [facility] Start: 02-08-2025 End: 02-08-2025 Patient encounter procedure Adarsh Malik MD Work Phone: [facility] Comment on above: Neoplasm of unspecif ied behavior of bone, soft tissue, and skin (Primary Dx) Start: 02-08-2025 End: 02-08-2025 ambulatory ADASRH MALIK Not Available Start: 01-23-2025 End: 01-23-2025 ambulatory [facility] Start: 12-30-2024 End: 12-30-2024 Clinisync Result Encounter Generic External Data Provider [facility] External Department Unsolicited Start: 12-30-2024 End: 12-30-2024 Clinisync Result Encounter Generic External Data Provider [facility] External Department Unsolicited Start: 12-28-2024 End: 12-28-2024 Bamboo flowsheet Татьяна Northkaiserm PA Work Phone: [facility] Start: 12-28-2024 End: 12-28-2024 Bamboo flowsheet Татьяна Huym PA Work Phone: [facility] Start: 12-28-2024 End: 12-28-2024 Office outpatient visit 10 minutes Татьяна Northeim PA Work Phone: [facility] Comment on above: Epidermal inclusion cyst (Primary Dx); Neoplasm of unspecified behavior of bone, soft tissue, and skin Start: 12-28-2024 End: 12-28-2024 ambulatory ТАТЬЯНА NORTHEIM Not Available Start: 12-19-2024 End: 12-19-2024 Patient encounter procedure Teressa Sierra NP Work Phone: [facility] Comment on above: Encounter for subseq uent annual wellness visit (AWV) in Medicare patient (Primary Dx); Chronic obstructive pulmonary disease, unspecified COPD type ([facility]); 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 ([facility]); Essential hypertension; Type 2 diabetes mellitus with stage 3 chronic kidney disease, without long-term current use of insulin, unspecified whether stage 3a or 3b CKD (HCC) ([facility]); Neoplasm of uncertain behavior; Body mass index (BMI) 45.0-49.9, adult ([facility]); Morbid (severe) obesity due to excess calories ([facility]) Start: 12-19-2024 End: 12-19-2024 Refill Teressa Sierra NP Work Phone: [facility] Comment on above: Bilateral primary os teoarthritis of knee; 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 ([facility]) Start: 10-11-2024 End: 10-11-2024 Clinisync Result Encounter Generic External Data Provider [facility] External Department Unsolicited Start: 10-11-2024 End: 10-11-2024 Clinisync Result Encounter Generic External Data Provider [facility] External Department Unsolicited Start: 10-04-2024 End: 10-04-2024 Refill Teressa Sierra VOCATIONAL COUNSELOR Work Phone: [facility] Comment on above: Type 2 diabetes jennie itus without complications ([facility]) Start: 10-03-2024 End: 10-03-2024 ambulatory [facility] Start: 09-27-2024 End: 09-27-2024 Bamboo flowsheet Teressa Sierra VOCATIONAL COUNSELOR Work Phone: [facility] Start: 09-27-2024 End: 09-27-2024 Bamboo flowsheet Teressa Sierra VOCATIONAL COUNSELOR Work Phone: [facility] Start: 09-27-2024 End: 09-27-2024 Office outpatient visit 25 minutes Teressa Sierra NP Work Phone: [facility] Comment on above: Obstructive sleep ap rohit syndrome (Primary Dx); Type 2 diabetes mellitus with diabetic chronic kidney disease ([facility]); 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 (CODE) ([facility]); Morbid (severe) obesity due to excess calories ([facility]); Body mass index (BMI) 45.0-49.9, adult ([facility]); Type 2 diabetes mellitus with diabetic peripheral angiopathy without gangrene ([facility]); Other ventricular tachycardia ([facility]); Chronic obstructive pulmonary disease, unspecified ([facility]); Chronic diastolic (congestive) heart failure ([facility]); 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 ([facility]); Essential hypertension; Chronic kidney disease, stage 3a ([facility]) ([facility]); Bilateral lower extremity edema; Stasis edema with ulcer of both lower extremities ([facility]); Mixed hyperlipidemia ([facility]); Stasis dermatitis 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 hypertension ([facility]); 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 ([facility]) Start: 09-27-2024 End: 09-27-2024 ambulatory TERESSA AICHHOLZ Not Available Start: 09-10-2024 End: 09-11-2024 Refill Teressa Aichholz VOCATIONAL COUNSELOR Work Phone: [facility] Comment on above: Localized edema Start: 09-08-2024 End: 09-08-2024 Refill Teressa Aichholz VOCATIONAL COUNSELOR Work Phone: [facility] Comment on above: Type 2 diabetes jennie itus without complication, without long- term current use of insulin ([facility]) Start: 08-04-2024 End: 08-04-2024 Clinisync Result Encounter Teressa Aichholz VOCATIONAL COUNSELOR Work Phone: [facility] External Department Unsolicited Start: 08-04-2024 End: 08-04-2024 Clinisync Result Encounter Teressa Aichholz VOCATIONAL COUNSELOR Work Phone: [facility] External Department Unsolicited Start: 07-13-2024 End: 07-13-2024 Refill Teressa Aichholz VOCATIONAL COUNSELOR Work Phone: [facility] Comment on above: Anemia, unspecified Start: 06-20-2024 End: 06-20-2024 Orders Only Teressa Sierra NP Work Phone: [facility] Comment on above: Chronic kidney disea se, stage 3a (HCC) (CMS/HCC) (Primary Dx) Start: 06-20-2024 End: 06-21-2024 Refill Teressa Mariela VOCATIONAL COUNSELOR Work Phone: [facility] Comment on above: Type 2 diabetes jennie itus without complications (CMS/HCC) Start: 06-17-2024 End: 06-17-2024 Refill Teressa Mariela VOCATIONAL COUNSELOR Work Phone: [facility] Comment on above: Bilateral primary os teoarthritis of knee; 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 (CMS/HCC) Start: 06-16-2024 End: 06-16-2024 Clinisync Result Encounter Teressa Sierra NP Work Phone: [facility] External Department Unsolicited Start: 06-16-2024 End: 06-16-2024 Clinisync Result Encounter Teressa Mariela VOCATIONAL COUNSELOR Work Phone: [facility] External Department Unsolicited Start: 06-13-2024 End: 06-13-2024 Refill Teressa Frankz VOCATIONAL COUNSELOR Work Phone: [facility] Comment on above: Coronary artery dise ase involving shawnee coronary artery of 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 angina pectoris (CMS/HCC) (Primary Dx); 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 (CMS/HCC); Mixed hyperlipidemia (CMS/HCC) Start: 06-01-2024 End: 06-01-2024 Office outpatient visit 25 minutes Teressa Sierra VOCATIONAL COUNSELOR Work Phone: [facility] Comment on above: Type 2 diabetes jennie itus without complication, without long- term current use of insulin (CMS/HCC) (Primary Dx); Chronic kidney disease, stage 3a (HCC) (CMS/HCC); Mixed hyperlipidemia (CMS/HCC); 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 (CMS/HCC); Essential hypertension; Prostate cancer screening; Obstructive sleep apnea syndrome; Chronic obstructive pulmonary disease, unspecified COPD type ([facility]); Venous stasis of both lower extremities; Morbid (severe) obesity due to excess calories ([facility]); Body mass index (BMI) 45.0-49.9, adult ([facility]) Start: 06-01-2024 End: 06-01-2024 ambulatory TERESSA SIERRA Not Available Start: 06-01-2024 End: 06-01-2024 Bamboo flowsheet Teressa Sierra VOCATIONAL COUNSELOR Work Phone: [facility] Start: 06-01-2024 End: 06-01-2024 Bamboo flowsheet Teressa Sierra VOCATIONAL COUNSELOR Work Phone: [facility] Start: 03-09-2024 End: 03-09-2024 ambulatory ARIELLA [facility] Start: 12-14-2023 Patient encounter procedure Teressa Sierra VOCATIONAL COUNSELOR Work Phone: [facility] Healthcare Start: 09-03-2022 End: 09-03-2022 ambulatory Moshe Garcia Other [facility] Other Start: 09-03-2022 Office outpatient ne w 45 minutes Moshe Garcia [facility] Start: 08-18-2022 End: 08-20-2022 [...] DR CATINA HEARN Facility:H1 Start: 04-14-2022 End: 08-23-2022 ambulatory [facility] Facility:[facility] Start: 12-15-2021 ambulatory [facility] Facility :[facility]1 Start: 05-15-2021 End: 06-02-2021 Evaluation and management of inpatient [place] Facility:[facility] Procedures Date Procedure Procedure Detail Performing Clinician Start: 05-31-2025 Ankle brachial press ure index Teressalloyd Sierra VOCATIONAL COUNSELOR-C Work Phone: Start: 05-23-2025 Bacteria identified in Blood by Culture Teressa Sierra VOCATIONAL COUNSELOR-C Work Phone: Start: 03-21-2025 Hemoglobin glycosyla buck a1c Teressa Aichholz VOCATIONAL COUNSELOR Work Phone: Start: 02-21-2025 CA ECHO DOPPLER [...] 12-19-2024 Hemoglobin glycosyla buck a1c Teressa Aichholz VOCATIONAL COUNSELOR Work Phone: Start: 10-11-2024 ALL BASIC METABOLIC PANEL Generic External Data Provider Start: 08-04-2024 ALL CBC WITH AUTO DIFF Teressa Aichholz VOCATIONAL COUNSELOR Work Phone: Start: 06-16-2024 ALL CBC WITH AUTO DIFF Teressa Aichholz VOCATIONAL COUNSELOR Work Phone: Start: 07-03-2021 End: 09-27-2024 History of coronary artery bypass grafting History of coronary artery bypass surgery Teressa Adolphholz VOCATIONAL COUNSELOR Work Phone: Start: 05-24-2021 Antibody screen [place] Comment on above: Performed By: #### [id number] ####[facility] [place] [address], [facility] Start: 05-23-2021 EXCISION OF STERNUM, [...] on above: Performed By: #### [id number] ####[facility] [place] [address], [facility] Start: 05-16-2021 EXCISION OF CHEST SK IN, EXTERNAL APPROACH AKANKSHA UP Start: 05-16-2021 RESPIRATORY VENTILAT ION, LESS THAN 24 CONSECUTIVE HOURS GUDELIA MASROOR Start: 05-15-2021 Antibody screen [facility] [place] Comment on above: Performed By: #### [id number] ####[facility], [place] [id number] [place] [address] Start: 04-07-2021 Antibody screen [facility] [place] Comment on above: Performed By: #### [id number] ####[facility], [place] [id number] [place] [address] History of appendectomy S/P appendectomy Teressa Sierra VOCATIONAL COUNSELOR-C Work Phone: History of cholecystectomy S/P cholecystectomy Teressa Sierra VOCATIONAL COUNSELOR-C Work Phone: Plan of Treatment Date Care Activity Detail Author Start: 12-25-2025 End: 12-25-2025 Patient encounter procedure 12/25/2025 4:30 PM EDT Office Visit [facility] [address] [place] [phone] Teressa Sierra NP [address] [place] [address] [facility] Start: 12-19-2025 Medicare Annual Wellness (AWV) Medicare Annual Wellness (AWV) [facility] Start: 09-21-2025 Hemoglobin A1c measurement Diabetes: Hemoglobin A1C [facility] Start: 08-24-2025 Glaucoma screening Diabetes: Retinopathy Screening [facility] Start: 08-10-2025 End: 08-10-2025 Patient encounter procedure [facility] Start: 06-22-2025 End: 06-22-2025 Patient encounter procedure 06/22/2025 2:00 PM EDT Office Visit [facility] [address] [place] [address] Teressa Sierra NP [address] [place] [address] [facility] Start: 06-20-2025 Hemoglobin A1c measurement Diabetes: Hemoglobin A1C [facility] Start: 06-16-2025 Urine screening for protein Diabetes: Urine Protein Screening [facility] Start: 05-31-2025 Ankle brachial pressure index [facility] Start: 05-23-2025 Bacteria identified in Blood by Culture Blood Culture [facility] Start: 05-23-2025 [facility] Start: 03-21-2025 End: 03-21-2025 Patient encounter procedure [facility] Comment on above: Obstructive sleep apnea syndrome (Primar y Dx); Chronic obstructive pulmonary disease, unspecified COPD type ([facility]); Essential hypertension; Chronic diastolic (congestive) heart failure ([facility]); 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 ; Bilateral lower extremity edema; Type 2 diabetes mellitus with stage 3 chronic kidney disease, without long-term current use of insulin, unspecified whether stage 3a or 3b CKD ([facility]); Morbid (severe) obesity due to excess calories ([facility]); MGUS (monoclonal gammopathy of unknown significance) Start: 02-08-2025 End: 02-08-2025 Patient encounter procedure 02/08/2025 1:00 PM EDT Office Visit [facility] [address] [place] [phone] Adarsh Malik MD [address] [place], [place] [id number] Arrived [facility] Comment on above: Arrived Start: 12-28-2024 End: 12-28-2024 Patient encounter procedure 12/28/2024 10:30 AM EDT Office Visit [facility] [address] [place] [address] Татьяна Dangelo PA [address] [place] [address] Neoplasm of uncertain behavior [facility] Comment on above: Neoplasm of uncertain behavior Start: 12-19-2024 End: 12-19-2024 Patient encounter procedure 12/19/2024 4:30 PM EDT Office Visit [facility] [address] [place] [address] Teressa Sierra NP [address] [place] [phone] [facility] Start: 12-15-2024 Hemoglobin A1c measurement Diabetes: Hemoglobin A1C [facility] Start: 12-13-2024 Medicare Annual Wellness (AWV) Medicare Annual Wellness (AWV) [facility] Start: 09-27-2024 End: 09-27-2024 Patient encounter procedure 09/27/2024 2:00 PM EST Office Visit [facility] [address] [place] [address] Teressa Sierra, VOCATIONAL COUNSELOR [address] [place] [phone] Obstructive sleep apnea syndrome (Primary Dx); Type [...] diastolic (congestive) heart failure (CMS/HCC); 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 (CMS/HCC); Essential hypertension; Chronic kidney disease, stage 3a (HCC) (CMS/HCC); Bilateral lower extremity edema; Stasis edema with ulcer of both lower extremities (CMS/HCC); Mixed hyperlipidemia (CMS/HCC) [facility] Comment on above: Obstructive sleep apnea syndrome [...] diastolic (congestive) heart failure (CMS/HCC); 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 (CMS/HCC); Essential hypertension; Chronic kidney disease, stage 3a (HCC) (CMS/HCC); Bilateral lower extremity edema; Stasis edema with ulcer of both lower extremities (CMS/HCC); Mixed hyperlipidemia (CMS/HCC) Start: 09-14-2024 End: 09-14-2024 Patient encounter procedure 09/14/2024 2:00 PM EST Office Visit [facility] [address] [place] [address] Teressa Sierra NP [address] [place] [address] [facility]AS[facility] DAVIDSON Start: 09-09-2024 Pneumococcal Vaccine: 65+ Years (1 of 2 - PCV) Pneumococcal Vaccine: 65+ Years (1 of 2 - PCV) [facility] Comment on above: Postponed from 1950 (Patient Refus ed) Start: 09-05-2024 End: 09-05-2024 Patient encounter procedure 09/05/2024 2:00 PM EST Office Visit [facility] [address] [place] [phone] Teressa Sierra, CUAUHTEMOC [address] [place] [phone] [facility] Start: 07-21-2024 End: 06-20-2025 CBC W Auto Differential panel - Blood CBC and differential Lab Routine Chronic kidney disease, stage 3a (HCC) ([facility]/HCC) Expected: 07/21/2024 (Approximate), Expires: 06/20/2025 [facility] Work Phone: Comment on above: Expected: 07/21/2024 (Approximate), Expi res: 06/20/2025 Start: 07-21-2024 End: 06-20-2025 Comprehensive metabolic 2000 panel - Serum or Plasma Comprehensive metabolic panel Lab Routine Chronic kidney disease, stage 3a (HCC) ([facility]/HCC) Expected: 07/21/2024 (Approximate), Expires: 06/20/2025 [facility] Comment on above: Expected: 07/21/2024 (Approximate), Expi res: 06/20/2025 Start: 06-17-2024 Hemoglobin A1c measurement Diabetes: Hemoglobin A1C [facility] Start: 06-01-2024 End: 06-01-2024 Patient encounter procedure 06/01/2024 3:00 PM EDT Office Visit [facility] [address] [place] [phone] Teressa Sierra, CUAUHTEMOC [address] [place] [phone] Chronic kidney disease, stage 3a (HCC) ([facility]) (Primary Dx); Type 2 diabetes mellitus without complication, without long-term current use of insulin (CMS/HCC); Mixed hyperlipidemia (CMS/HCC); 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 (CMS/HCC); Essential hypertension; Prostate cancer screening [facility] Comment on above: Chronic kidney disease, stage 3a (HCC) ( CMS/HCC) (Primary Dx); Type 2 diabetes mellitus without complication, without long-term current use of insulin (CMS/HCC); Mixed hyperlipidemia (CMS/HCC); 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 (CMS/HCC); Essential hypertension; Prostate cancer screening Start: 06-01-2024 End: 06-01-2025 CBC W Auto Differential panel - Blood CBC and differential Lab Routine Chronic kidney disease, stage 3a (HCC) (CMS/HCC) Expected: 06/01/2024 (Approximate), Expires: 06/01/2025 [facility] Work Phone: Comment on above: Expected: 06/01/2024 (Approximate), Expi res: 06/01/2025 Start: 06-01-2024 End: 06-01-2025 Comprehensive metabolic 2000 panel - Serum or Plasma Comprehensive metabolic panel Lab Routine Type 2 diabetes mellitus without complication, without long-term current use of insulin (CMS/HCC) Mixed hyperlipidemia (CMS/HCC) Essential hypertension Expected: 06/01/2024 (Approximate), Expires: 06/01/2025 [facility] Comment on above: Expected: 06/01/2024 (Approximate), Expi res: 06/01/2025 Start: 06-01-2024 End: 06-01-2025 Hemoglobin A1c/Hemoglobin.total in Blood Hemoglobin A1c Lab Routine Type 2 diabetes mellitus without complication, without long-term current use of insulin (CMS/HCC) Expected: 06/01/2024 (Approximate), Expires: 06/01/2025 [facility] Comment on above: Expected: 06/01/2024 (Approximate), Expi res: 06/01/2025 Start: 06-01-2024 End: 06-01-2025 Lipid 1996 panel - Serum or Plasma Lipid panel Lab Routine Type 2 diabetes mellitus without complication, without long-term current use of insulin (CMS/HCC) Mixed hyperlipidemia (CMS/HCC) Expected: 06/01/2024 (Approximate), Expires: 06/01/2025 [facility] Comment on above: Expected: 06/01/2024 (Approximate), Expi res: 06/01/2025 Start: 06-01-2024 End: 06-01-2025 Microalbumin/Creatinine panel in random Urine Microalbumin / creatinine, urine ratio Lab Routine Type 2 diabetes mellitus without complication, without long-term current use of insulin ([facility]/HCC) Essential hypertension Expected: 06/01/2024 (Approximate), Expires: 06/01/2025 [facility] Comment on above: Expected: 06/01/2024 (Approximate), Expi res: 06/01/2025 Start: 06-01-2024 End: 06-01-2025 Prostate specific Ag [Mass/volume] in Serum or Plasma PSA Lab Routine Prostate cancer screening Expected: 06/01/2024 (Approximate), Expires: 06/01/2025 [facility] Comment on above: Expected: 06/01/2024 (Approximate), Expi res: 06/01/2025 Start: 06-01-2024 End: 06-01-2025 Urinalysis complete panel - Urine Urinalysis with reflex microscopic (clean catch) Lab Routine Type 2 diabetes mellitus without complication, without long-term current use of insulin ([facility]/HCC) Essential hypertension Expected: 06/01/2024 (Approximate), Expires: 06/01/2025 [facility] Comment on above: Expected: 06/01/2024 (Approximate), Expi res: 06/01/2025 Start: 05-20-2024 Urine screening for protein Diabetes: Urine Protein Screening [facility] Start: 1963 Pneumococcal Vaccine: 65+ Years (1 of 2 - PCV) Pneumococcal Vaccine: 65+ Years (1 of 2 - PCV) [facility] Start: 1950 Pneumococcal Vaccine: 65+ Years (1 of 2 - PCV) Pneumococcal Vaccine: 65+ Years (1 of 2 - PCV) [facility] Dermatopathology exam Dermatopat hology exam Pathology and Cytology Timed Neoplasm of unspecified behavior of bone, soft tissue, and skin Release Upon Ordering for 1 Occurrences starting 12/28/2024 [facility] Work Phone: Comment on above: Release Upon Ordering for 1 Occurrences starting 12/28/2024 Dermatopathology exam Dermatopat hology exam Pathology and Cytology Timed Neoplasm of unspecified behavior of bone, soft tissue, and skin Release Upon Ordering for 1 Occurrences starting 02/08/2025 [facility] [employer] Work Phone: Comment on above: Release Upon Ordering for 1 Occurrences starting 02/08/2025 US Lower extremity v ein - bilateral [facility] Payers Date Payer Category Payer Medicare [id number] 2023 Medicare (Managed Care) 1.2. [id number] 2023 Unknown [employer] [id number] 2023-Present [address] [place] [address] [id number] 2023 Unknown [id number] 2009 Medicare MEDICARE [id number] 5 1959 Private Health Insurance [id number] 1959 Self-pay 1944 Unknown [id number] 2.16.840.1.491837.3.579 .2.647 1944 Unknown [id number] 2.16.840.1.190658.3.579 .2.593 1944 Unknown [id number] 2.16.840.1.372934.3.579 .2.593 1944 Unknown [id number] 2.16.840.1.983161.3.579 .2.593 1944 Unknown [id number] 2.16.840.1.888372.3.579 .2.593 1944 Unknown [id number] 2.16.840.1.805777.3.579 .2.593 1944 Unknown [id number] 2.16.840.1.151138.3.579 .2.593 1944 Unknown [id number] 2.16.840.1.348316.3.579 .2.593 1944 Unknown [id number] 2.16.840.1.551496.3.579 .2.593 1944 Unknown [id number] 2.16.840.1.840252.3.579 .2.593 1944 Unknown [id number] 2.840.1.685375.3.579 .2.1259 1944 Unknown [id number] 2.16.840.1.177234.3.579 .2.1259 1944 Unknown [id number] 2.16.840.1.588178.3.579 .2.1259 1944 Unknown [id number] 2.16.840.1.639276.3.579 .2.1259 1944 Unknown [id number] 2.840.1.475945.3.579 .2.1259 1944 Unknown [id number] 2.16.840.1.834420.3.579 .2.1259 Medicare Medicare [id number] Private Health Insurance [employer] [id number] Unknown [id number] 2.16.840.1.061007.3.579 .2.531 Unknown [id number] 2.16840.1.279555.3.579 .2.531 Social History Date Type Detail Facility Start: 12-14-2023 End: 12-19-2024 Sex Assigned At [facility] Start: 09-07-2023 End: 05-31-2025 Tobacco smoking status IAIS Ex-smoker [facility] History of tobacco use Current smoker [facility] History of tobacco use Cigarette Smoker [facility] Start: 09-07-2023 End: 12-14-2023 Cigarettes smoked current (pack per day) - Reported 0.8 [facility] Start: 09-07-2023 End: 02-08-2025 Tobacco use and exposure User of smokeless tobacco [facility] History of tobacco use Chews Tobacco [facility] Start: 03-14-2024 End: 03-21-2025 Alcoholic beverage intake Current drinker of alcohol (finding) [facility] Within the last year , have you been afraid of your partner or ex-partner? No [facility] Do you belong to any clubs or organizations such as yazidism groups, [employer], [employer] or athletic groups, or school groups? Yes [...] Start: 09-07-2023 Alcohol Comment 3-4 drinks 4 or more times a week [facility] Start: 1945 Sex assigned at Not on file [facility] Start: 05-18-2023 Tobacco smoking status NHIS Smokes tobacco daily (finding) [facility] Sex Male (finding) [facility] Start: 1945 Sex Assigned At Male [facility] Medical Equipment Procedure Code Equipment Code Equipment Origin al Text Equipment Identifier Dates [id number], [id number] Start: 06-21-2024 End: 10-04-2024 Blood Sugar Diagnostic (True Metrix Glucose Test Strip) strip Start: 06-05-2025 Functional Status Date Assessment Result Facility 12-19-2024 Patient Health Quest ionnaire 2 item (PHQ-2) [Reported] [facility] Clinical Notes 10-11-2020 to 05-31-2025 Note Date & Type Note Facility 05-31-2025 Radiology [place] [address] Ultrasound Report Signed Patient: Arianne Mcqueen MR#: [id number] : 1945 Acct:[id number] Age/Sex: 80 / M ADM Date: 5 Loc: [facility] Room: Type: [facility] Attending Dr: Biju Monroe MD Ordering Provider: [...] Monroe MD,FACS,FSVS 05/31/2025 1:58 PM Dictation Location: [place] [address] Tech: Swetha Kaur Transcribed By: MICAH 05/31/25 135 Dictated By: Biju Monroe MD 05/31/25 135 Signed By: 05/31/25 1358 [facility] Work Phone: 05-31-2025 Evaluation note Diagnosis Onset Date Resolution Venous stasis of both lower extremities chronic May 31, 2 025 10:30am [facility] Work Phone: 1(233) 191-788310-08-2025 Evaluation note* Diagnosis Onset Date Resolution Status Admit Date Venous stasis of both lower extremities chronic May 31 10:30am Diastolic dysfunction with chronic heart failure acute June 052024 9:43am Morbid obesity due to excess calories acute June 05 9:43am Type 2 diabetes mellitus, without long-term current use of insulin acute June 05 9:43am Nicotine dependence chronic Octob er 2024 9:43am Wound cellulitis resolved June 05, 2025 9:43am [facility] Work Phone: 1(870) 220-377907-29-2025 History of Present illness Narrative* JAY EDWARDS - 03/21/2025 3:00 PM EDT Both legs are wrapped-wound nurses come 2x a week to do dressings, they were there yesterday. Right hip pain- limping and had a hard time stepping on scale Pt would like to discuss getting him a new inhaler having troubles breathing with the weather. He sees a new personal lines underwriter in [place] in May. * Teressa Sierra NP - 03/21/2025 3:00 PM EDT Images from the original note were not included. Arianne Mcqueen is a 79 y.o. male presents with chief complaint of Diabetes HPI: Here for recheck: Was under the care for dr mayers, getting a new personal lines underwriter, appt with dr wayne osei in [place], right now only using albuterol Was unable [...] provides significant improvement. Hypertensive end-organ damage includes CAD/WV and heart failure. There is no history [...] [facility] Sleep lab ext [phone] to find out about scheduling the patient to see about an updated PAP machine: [email or web address] left at 16:20 on 09/27/24 Chronic obstructive pulmonary disease, unspecified (HCC) Current meds: trelegy inhaler and albuterol inhaler Follows with pulmonology Dr Riana Melchor 100 inhalers: #4 lot [id number], exp 03/18 Relevant Medications Pfgmcxsawow-Qivxgoedm-Mbgmtb (Trelegy Ellipta) 100-62.5-25 MCG/ACT aerosol powder CAD [...] diastolic (congestive) heart failure (HCC) Follows with [facility] Current meds: asa, statin, b fitz, imdur, aldactone, amlodipine ECHO 02/21/25: EF 74%, bilat atrial enlargement: right mild, left mod. 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 Relevant Medications carvedilol (Coreg) 12.5 MG tablet * Teressa Sierra NP - 03/21/2025 7:15 AM EDTAssociated Problem(s): Morbid (severe) obesity due to excess calories ([facility]) Discussed with patient their BMI (actual, [...] artery disease) Continue current meds/dose * Teressa Seirra NP - 03/21/2025 7:14 AM EDTAssociated Problem(s): Chronic diastolic (congestive) heart failure (HCC) Follows with [facility] Current meds: asa, statin, b fitz, [...] bilateral lower extremities with pain Continue with [facility] Vein and Body * Teressa Sierra NP [...] [facility] Sleep lab ext [phone] to find out about scheduling the patient to see about an updated PAP machine: [email or web address] left at 16:20 on 09/27/24 documented in this encounterPemiscot Memorial Health [id number] History of Present illness Narrative* Ce Luna MA - 02/08/2025 1:00 PM EDT * Adarsh Malik MD - 02/08/2025 1:00 PM EDT [...] SOFT TISSUE, AND SKIN Right Anterior Neck [place] macule at biopsy site Skin excision Lesion [...] Neoplasm Check Margins: Yes Previous accession number: [id number] Follow up: 4-6 months, FBSE documented in this encounterPemiscot Memorial Health [id number] [facility] Subjective Arianne Mcqueen is a 79 y.o. year old male patient being seen for increase in lasix and blood work. Patient complains of GROVES, leg swelling and fatigue. Patient Active Problem List Diagnosis Multiple vessel coronary artery disease Cough Edema Hypertensive disorder History of coronary artery bypass surgery Nonsustained ventricular tachycardia ([facility]) Syncope and collapse Wound of sternal region Chronic diastolic congestive heart failure ([facility]) COVID-19 Hyperglycemia Metabolic syndrome MGUS (monoclonal gammopathy of unknown significance) Pericardial effusion Pneumonia, bacterial Solitary pulmonary nodule Arthritis of right hip Bilateral lower extremity edema Constipation COPD (chronic obstructive pulmonary disease) ([facility]) Encounter for subsequent annual wellness visit (AWV) in Medicare patient Hearing decreased Hypercholesterolemia Hyperpigmentation Iron deficiency Lymphedema Lymphorrhea Myocardial infarction ([facility]) Nicotine dependence Osteoarthritis of both knees Papillomatosis Sleep apnea Morbid obesity ([facility]) Venous stasis ulcer of right lower extremity ([facility]) Wound cellulitis Diabetes mellitus, type II ([facility]) snf (current) use of inhaled steroids Ulcer of lower extremity ([facility]) Aortic ectasia, unspecified site Body mass index (BMI) 45.0-49.9, adult ([facility]) Chronic kidney disease, stage 3a ([facility]) Type 2 diabetes mellitus with diabetic chronic kidney disease ([facility]) Type 2 diabetes mellitus with diabetic peripheral angiopathy without gangrene ([facility]) 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 (CODE) ([facility]) Family History Problem Relation Name Age of [...] He was resuscitated and admitted to the [facility]. His initial investigation was negative. [...] In August 2021 he was admitted to [facility] and then transferred to [facility] due to COVID infection and large pericardial [...] 2022 showed normal ventr (more content not included)...[facility] 12-28-2024 History of Present illness Narrative* POLINA Graham - 12/28/2024 10:30 AM EDT Images from the original note were [...] diagnose the lesion would be to have itremoved and tested. Discussed treatment options including observation [...] Visit: pending biopsy results documented in this encounterPemiscot Memorial Health [id number] History of Present illness Narrative* Teressa Sierra NP - 12/19/2024 7:01 PM EDTAssociated Problem(s): Neoplasm of uncertain behavior Unclear etiology Will refer to dermatology * Teressa Sierra NP - 12/19/2024 7:01 PM EDTAssociated Problem(s): Morbid (severe) obesity due to excess calories (CMS/HCC) Discussed with patient their BMI (actual, verses recommended). We have also discussed lifestyle modifications: attempts to perform physical activity as chronic conditions allow, also to monitor dietary intake: increasing protein/fruits/veggies and lowering carb intake (unless contraindicated). Limit sodas, juices, and sugary drinks. Activity difficult d/t multiple co morbidities * JAY EDWARDS - 12/19/2024 4:30 PM EDT Couple weeks ago pt went into er for swollen testicles, he was told to take 3 daily of his lasix for a few days Pt has been taking two tablets of the lasix now * Teressa Sierra NP - 12/19/2024 4:30 PM EDT Images from the original note were not included. Arianne Mcqueen is a 79 y.o. 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 HCPOA/Living Will: has forms at home, not completed Concerns: [facility] Er recently for scrotal swelling, increased water [...] Diagnosis Date Anemia CAD (coronary artery disease) ([facility]/HCC) Constipation COPD (chronic obstructive pulmonary disease) ([facility]) Diabetes mellitus, type II (CMS/HCC) Hearing decreased Heart disease Hip pain, right Hypercholesterolemia ([facility]/HCC) Hypertension ([facility]/HCC) Iron deficiency Myocardial infarction ([facility]) Osteoarthritis of both knees, unspecified osteoarthritis [...] 3 seconds. Findings: Lesion (right chin/neck area: [id number], color variation, w some dk black/brown, no [...] pulmonology Dr Riana ZELAYA (coronary artery disease) ([facility]) Continue current meds/dose Essential hypertension (Chronic) Please [...] Morbid (severe) obesity due to excess calories ([facility]) Discussed with patient their BMI (actual, verses recommended). We have also discussed lifestyle modifications: attempts to perform physical activity as chronic conditions allow, also to monitor dietary intake: increasing protein/fruits/veggies and lowering carb intake (unless contraindicated). Limit sodas, juices, and sugary drinks. Activity difficult d/t multiple co morbidities Body mass index (BMI) 45.0-49.9, adult ([facility]) Type 2 diabetes mellitus with diabetic chronic kidney disease ([facility]) Check blood sugars daily, notify if [...] dermatology Relevant Orders Ambulatory referral to Dermatology * Teressa Sierra NP - 12/19/2024 7:43 AM EDTAssociated Problem(s): Encounter for subsequent annual wellness visit (AWV) in Medicare patient Reviewed Ht/Wt/BMI Recommend eye exam yearly Recommend dental exams twice a year Balance work/leisure activities Exercises is recommended most days of the week (appropriate as chronic conditions allow) Follow up yearly and prn Hand out on living will and health care POA given at his last AWV * Teressa Sierra NP - 12/19/2024 7:42 AM EDTAssociated Problem(s): Type 2 diabetes mellitus with diabetic chronic kidney disease ([facility]) Check blood sugars daily, notify if [...] 5.9% 12/19/24 * Teressa Sierra NP - 12/19/2024 7:41 AM EDTAssociated Problem(s): Type 2 diabetes mellitus with diabetic peripheral angiopathy without gangrene ([facility]) Check blood sugars daily, notify if [...] diet low in carbohydrates, and simple sugars. * Teressa Sierra NP - 12/19/2024 7:41 AM EDTAssociated Problem(s): Essential hypertension Please check blood pressure daily and record DASH diet Limit caffeine Take medication as directed Contact office if chest pain, pressure, dizziness, shortness of breath, swelling legs Recommend slow position changes Current meds: amlodipine, carvedilol, aldactone * Teressa Sierra NP - 12/19/2024 7:41 AM EDTAssociated Problem(s): CAD (coronary artery disease) ([facility]) Continue current meds/dose * Teressa Sierra NP - 12/19/2024 7:40 AM EDTAssociated Problem(s): Chronic obstructive pulmonary disease, unspecified Current meds: trelegy inhaler and albuterol inhaler Follows with pulmonology Dr Mayers documented in this encounterPemiscot Memorial Health [id number] Instructions* Patient Instructions* Teressa Sierra NP - 12/19/2024 4:30 PM EDT Referral to Dermatology: [facility] in [place], they should call you No medication dose changes A1c was good 5.9% no changes in diabetes meds documented in this encounterPemiscot Memorial Health [id number] NoteUT Cardiology - [facility] Subjective Arianne Mcqueen is [...] sternal region Chronic diastolic congestive heart failure ([facility]/HCC) COVID-19 Hyperglycemia Metabolic syndrome MGUS (monoclonal gammopathy of unknown significance) Pericardial effusion Pneumonia, bacterial Solitary pulmonary nodule Arthritis of right hip Bilateral lower extremity edema Constipation COPD (chronic obstructive pulmonary disease) ([facility]) Encounter for subsequent annual wellness visit (AWV) in Medicare patient Hearing decreased Hypercholesterolemia Hyperpigmentation Iron deficiency Lymphedema Lymphorrhea Myocardial infarction (CMS/HCC) Nicotine dependence Osteoarthritis of both knees Papillomatosis Sleep apnea Morbid obesity (CMS/HCC) Venous stasis ulcer of right lower extremity (CMS/HCC) Wound cellulitis Diabetes mellitus, type II (CMS/HCC) snf (current) use of inhaled steroids Ulcer of lower extremity (CMS/HCC) Aortic ectasia, unspecified site ([facility]) Body mass index (BMI) 45.0-49.9, adult ([facility]) Chronic kidney disease, stage 3a ([facility]) Type 2 diabetes mellitus with diabetic chronic kidney disease ([facility]) Type 2 diabetes mellitus with diabetic peripheral angiopathy without gangrene ([facility]) 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 (CODE) ([facility]) Family History Problem Relation Name Age [...] He was resuscitated and admitted to the [facility]. His initial investigation was negative. [...] In August 2021 he was admitted to [facility] and then transferred to [facility] due to COVID infection and large pericardial [...] not revascularize right coronary (more content not included)...[facility] 09-27-2024 History of Present illness Narrative* Teressa Sierra NP - 09/27/2024 4:23 PM ESTAssociated Problem(s): Stasis dermatitis 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 hypertension (CMS/HCC) He has [facility] Nurse comes out few times per week for dressing changes Also sees Giselle Drew at [facility] for mgmt of wound * JAY EDWARDS - 09/27/2024 2:00 PM EST 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 An RUBINA inhibitor/angiotensin II receptor block er is being taken. He does not see a crude unit operator.Eye exam is not current. Hypertension This is a chronic problem. The current episode started more than 1 year ago. The problem is unchanged. The problem is controlled. Associated symptoms include peripheral edema and shortness of breath.Pertinent negatives include no anxiety, chest pain, malaise/fatigue [...] Meter) w/Device kit 1 each, Does not apply,Daily Blood Glucose Monitoring Suppl (True Metrix Go Glucose Meter) w/Device kit Does not apply carvedilol (COREG) 12.5 mg, Oral, 2 times daily with meals celecoxib (CELEBREX) 200 mg, Daily cephalexin (KEFLEX) 500 mg, 2 times daily Drug Mize Unilet Lancets 33G misc 1 each, Other, [...] (CMS/HCC) Hypertension (CMS/HCC) Iron deficiency Myocardial infarction ([facility]/HCC) Osteoarthritis of both knees, unspecified osteoarthritis type [...] feel more refreshed in the morning: NA Consult [employer] that supplies your machine and tubing/filters etc: Doctor that manages your JOSUE: Dr Amado, has not seen in a year Chronic obstructive pulmonary disease, unspecified ([facility]/HCC) Current meds: trelegy inhaler and albuterol inhaler [...] diastolic (congestive) heart failure (CMS/HCC) Follows with [facility] Current meds: asa, statin, b fitz, imdur, aldactone, amlodipine 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 (CMS/HCC) Current meds: asa, statin, b fitz, imdur, aldactone, Cardiology: [facility] Pat Morbid (severe) obesity due to excess calories ([facility]) Discussed with patient their BMI (actual, verses recommended). We have also discussed lifestyle modifications: attempts to perform physical activity as chronic conditions allow, also to monitor dietary intake: increasing protein/fruits/veggies and lowering carb intake (unless contraindicated). Limit sodas, juices, and sugary drinks. Activity difficult d/t multiple co morbidities Chronic kidney disease, stage 3a (HCC) ([facility]) Monitor labs yearly and prn Recommend adequate DM, HTN control, as well as heart failure Body mass index (BMI) 45.0-49.9, adult (CMS/HCC) Other ventricular tachycardia (CMS/HCC) Noted on holter in 2020 Cont per cardiology 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 (CODE) ([facility]) Mixed hyperlipidemia (CMS/HCC) Continue statin Check labs yearly and prn dose chagnes Type 2 diabetes mellitus with diabetic chronic kidney disease ([facility]) Check blood sugars daily, notify if [...] both lower extremities (CMS/HCC) Diuretics, elevation, compression * Teressa Sierra NP - 09/27/2024 7:14 AM ESTAssociated Problem(s): Mixed hyperlipidemia (CMS/HCC) Continue statin Check labs yearly and prn dose chagnes * Teressa Sierra NP - 09/27/2024 7:14 AM ESTAssociated Problem(s): Morbid (severe) obesity due to excess calories ([facility]/HCC) Discussed with patient their BMI (actual, verses recommended). We have also discussed lifestyle modifications: attempts to perform physical activity as chronic conditions allow, also to monitor dietary intake: increasing protein/fruits/veggies and lowering carb intake (unless contraindicated). Limit sodas, juices, and sugary drinks. Activity difficult d/t multiple co morbidities * Teressa Sierra NP - 09/27/2024 7:14 AM ESTAssociated Problem(s): Type 2 diabetes mellitus with diabetic chronic kidney disease ([facility]/HCC) Check blood sugars daily, notify if <70 [...] cannot afford jardiance A1c 5.4% in 06/16 * Teressa Sierra NP - 09/27/2024 7:13 AM ESTAssociated Problem(s): Stasis edema with ulcer of both lower extremities (CMS/HCC) Diuretics, elevation, compression * Teressa Sierra NP - 09/27/2024 7:13 AM ESTAssociated Problem(s): Bilateral lower extremity edema Continue spironolactone script Elevate legs as much as possible Limit sodium and wear compression stockings * Teressa Sierra NP - 09/27/2024 7:13 AM ESTAssociated Problem(s): Chronic kidney disease, stage 3a (HCC) (CMS/HCC) Monitor labs yearly and prn Recommend adequate DM, HTN control, as well as heart failure * Teressa Sierra NP - 09/27/2024 7:13 AM ESTAssociated Problem(s): Type 2 diabetes mellitus with diabetic peripheral angiopathy without gangrene (CMS/HCC) On asa, statin * Teressa Sierra NP - 09/27/2024 7:12 AM ESTAssociated Problem(s): Other ventricular tachycardia (CMS/HCC) Noted on holter in 2020 Cont per cardiology * Teressa Sierra NP - 09/27/2024 7:12 AM ESTAssociated Problem(s): Essential hypertension Please check blood pressure daily and record DASH diet Limit caffeine Take medication as directed Contact office if chest pain, pressure, dizziness, shortness of breath, swelling legs Recommend slow position changes Current meds: amlodipine, carvedilol, aldactone * Teressa Sierra NP - 09/27/2024 7:12 AM ESTAssociated Problem(s): Chronic diastolic (congestive) heart failure (CMS/HCC) Follows with [facility] Current meds: asa, statin, b fitz, imdur, aldactone, amlodipine * Teressa Sierra NP - 09/27/2024 7:11 AM ESTAssociated Problem(s): 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 pect kim (CMS/HCC) Current meds: asa, statin, b fitz, imdur, aldactone, Cardiology: [facility] Pat * Teressa Sierra NP - 09/27/2024 7:10 AM ESTAssociated Problem(s): Chronic obstructive pulmonary disease, unspecified (CMS/HCC) Current meds: trelegy inhaler and albuterol inhaler Follows with pulmonology Dr Mayers * Teressa Sierra NP - 09/27/2024 7:10 AM ESTAssociated Problem(s): Sleep apnea You have a diagnosis [...] [facility] Sleep lab ext [phone] to find out about scheduling the patient to see about an updated PAP machine: voicemail left at 16:20 on 09/27/24 documented in this encounterPemiscot Memorial Health [id number] Instructions* Patient Instructions* Teressa Sierra NP - 09/27/2024 2:00 PM EST Sleep apnea: I will call [facility] to see about getting you into see Dr Amado Wounds: continue with wound care and home health documented in this [facility]10-09-2024 History of Present illness Narrative* Teressa Sierra NP - 06/01/2024 5:00 PM EDTAssociated Problem(s): Diabetes mellitus, type II ([facility]) Cannot afford ozempic, although his sugars [...] diet low in carbohydrates, and simple sugars. * Teressa Sierra NP - 06/01/2024 4:59 PM EDTAssociated Problem(s): CAD (coronary artery disease) ([facility]) Continue current meds/dose * Teressa Sierra NP - 06/01/2024 4:59 PM EDTAssociated Problem(s): Essential hypertension At goal no dose changes * Teressa Sierra NP - 06/01/2024 4:58 PM EDTAssociated Problem(s): COPD (chronic obstructive pulmonary disease) ([facility]) Continue with dr mayers Needs a refill of trelegy , he needs to contact them * Teressa Sierra NP - 06/01/2024 4:58 PM EDTAssociated Problem(s): Sleep apnea Non compliant with PAP use, machine is broke , difficulty finding DME who takes his insurance I did leave a VM on Sleep [facility] regarding this for them to assist * JAY EDWARDS - 06/01/2024 3:00 PM EDT Pt is seeing a clinic specialist for his legs. Pt had a fasting BS of 130 Pt would like a refill on his trelegy ellipta He does not see dr riana rodas next year * Teressa Sierra, CUAUHTEMOC - 06/01/2024 3:00 PM EDT Images from the original note were not included. Arianne Mcqueen is a 79 y.o. male presents with chief complaint of No chief complaint on file. HPI: Hypertension This is a chronic problem. The current episode started more than 1 year ago. The problem is unchanged. The problem is controlled. Associated symptoms include peripheral edema and shortness of breath.Pertinent negatives include no anxiety, chest pain, headaches, malaise/fatigue, neck pain, orthopnea or palpitations. Agents associated with hypertension include amphetamines. Risk factors for coronary artery disease include diabetes mellitus, dyslipidemia, male gender, obesity and sedentary lifestyle. Past treatments include beta blockers, calcium channel blockers and diuretics. The current treatment provides significant improvement. There are no compliance problems. Hypertensive end-organ damage includes CAD/WV and PVD. Diabetes He presents for his [...] and PVD. Risk factors for coronary artery diseaseinclude diabetes mellitus, dyslipidemia, hypertension, male sex, obesity and sedentary lifestyle. Current diabetic treatment includes oral agent (dual therapy) and oral agent (monotherapy). He is compliant with treatment all of the time. He rarely participates in exercise. His overall blood glucoserange is 130-140 mg/dl. An RUBINA inhibitor/angiotensin II receptor fitz is not being taken. He does not see a crude unit operator.Eye exam is current. SUBJECTIVE: MEDICATIONS: Current Outpatient Medications Medication Instructions albuterol HFA 90 mcg/act inhaler 2 puffs, Inhalation, Every 6 hours PRN amLODIPine (NORVASC) 5 mg, Oral, Daily aspirin (ASPIRIN) 81 mg, Oral, Daily atorvastatin (LIPITOR) 40 mg, Oral, Nightly Blood Glucose Monitoring Suppl (True Metrix Air Glucose Meter) w/Device kit 1 each, Does not apply,Daily Blood Glucose Monitoring Suppl (True Metrix Go [...] to assist COPD (chronic obstructive pulmonary disease) ([facility]) Continue with dr mayers Needs a refill of trelegy , he needs to contact them CAD (coronary artery disease) ([facility]) Continue current meds/dose Diabetes mellitus, type II ([facility]) - Primary Cannot afford ozempic, although [...] Morbid (severe) obesity due to excess calories ([facility]) Chronic kidney disease, stage 3a (HCC) ([facility]) Relevant Orders CBC and differential Body mass index (BMI) 45.0-49.9, adult ([facility]/HCC) Mixed hyperlipidemia ([facility]/HCC) Relevant Orders Comprehensive metabolic panel Lipid panel Prostate cancer screening Relevant Orders PSA documented in this encounterPemiscot Memorial Health [id number] NoteCardiovascular Medicine [facility] SUBJECTIVE Chief Complaint Patient presents with Follow-up [...] edema Constipation COPD (chronic obstructive pulmonary disease) ([facility]) Encounter for subsequent annual wellness visit (AWV) in Medicare patient Hearing decreased Hypercholesterolemia Hyperpigmentation Iron deficiency Lymphedema Lymphorrhea Myocardial infarction (CMS/HCC) Nicotine dependence Osteoarthritis of both knees Papillomatosis Sleep apnea Morbid obesity (CMS/HCC) Venous stasis ulcer of right lower extremity (CMS/HCC) Wound cellulitis Diabetes mellitus, 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 At this juncture we have discussed the findings and diagnosis as well as personally reviewed appropriate imaging and performed interpretation of related testing and examination with the patient in office today. Prior medical notes from Dr. Barnes and history have been reviewed. Hospital notes from the [facility] from his prior admission on 08/18/2022 are also reviewed. He was admitted and treated for left lower lobe pneumonia. Today we have discussed degenerative joint disease of the hip and its treatment. Imaging was explained and discussed with the patient. We discussed recommended conservative therapies including physical therapy, anti-inflammatory medications, and weight loss strategies. We also discussed other treatment options including cortisone injections. I have laid out the course of hip DJD including the end-stage treatment of total joint arthroplasty. The patient recognizes and understands our options and goals and we will move forward with our treatment. He is currently taking anti-inflammatories which control his symptoms fairly well and I would continue this for the time being. If he has decreased efficacy with these or is unable to take these further then I would advance his discussion towards total hip arthroplasty. He has had open heart surgery approx1.5 years ago and was just admitted to [facility] with pneumonia a couple of [...] including gentle non-impact motion exercise and non-steroidal anti-inflammatory medication. We discussed the use of occasional intra-articular cortisone injections that can provide pain relief as well as end-stage treatment of total hip replacement. Patient voices understanding and opts for conservative treatment with anti-inflammatory medication. Advised patient he may use a cane for walking assistance. Patient voices understanding and is agreeable to treatment plan. We will follow up as needed if pain becomes uncontrolled with medications. Aug, Other See orders for this visit as documented in the electronic medical record. [facility] Other 09-15-2022 NotePROCEDURE: XR HIP RT 2 3V WO PELVIS HISTORY: Pain in right hip joint COMPARISON: XR pelvis 09/15/2021 FINDINGS: BONES:Complete loss of the joint space with [id number] articulation. Large periarticular degenerative osteophytes. No fracture, dislocation, bone lesion. SOFT TISSUES:No visible soft tissue swelling. EFFUSION:None visible. OTHER: Atherosclerotic disease. IMPRESSION: 1. 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 2. No appreciable acute abnormality. Electronically authenticated by: NOREEN KELLY Date: 2022-05-08 10:48[facility]10-28-2021 NoteThe [facility] 04-23-2021 NoteThe [facility]02-18-2021 NotePatient Outreach ([facility]OV[facility]) ARIANNE MCQUEEN ([id number]) 1945 M Date Time Provider Department 10/11/20 TERRANCE CABALLERO During your visit today, we recorded the following information about you: Allergies As of Date: 10/11/2020 (No Known Allergies) Date Reviewed: 04/21/2020 Reviewed by: Willie Sotelo - Fully Assessed Order(s):SARS-COVID VACCINE 1ST DOSE APPT [[id number]] Order #: [id number] FUTURE Prescriptions as of 10/11/2020 Sig: TRAZODONE [...] [I73.9] 08/19/2012 Letter Text Encounter Status:Closed by [employer] PRODUSER on 10/15/20[facility] Evaluation note* Diagnosis Type 2 diabetes mellitus without complication, without long-term current use of insulin (CMS/HCC)- Primary Chronic kidney disease, stage 3a (HCC) (CMS/HCC) Mixed hyperlipidemia (CMS/HCC) Mixed hyperlipidemia 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 (CMS/HCC) Essential hypertension Unspecified essential hypertension Prostate cancer screening Special screening for malignant neoplasm of prostate Obstructive sleep apnea syndrome Obstructive sleep apnea (adult) (pediatric) Chronic obstructive pulmonary disease, unspecified COPD type (CMS/HCC) Venous stasis of both lower extremities Morbid (severe) obesity due to excess calories (CMS/HCC) Body mass index (BMI) 45.0-49.9, adult (CMS/HCC) documented in this encounter [facility] HealthcareEvaluation note* Diagnosis Type 2 diabetes mellitus [...] apnea (adult) (pediatric) 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 (CMS/HCC) Essential hypertension Unspecified essential hypertension Type 2 diabetes mellitus without complication, without long-term current use of insulin (CMS/HCC) Chronic diastolic congestive heart failure ([facility]) Venous stasis of both lower extremities Bilateral lower extremity edema Morbid obesity ([facility]/HCC) Morbid obesity Type 2 diabetes mellitus without complication, without long-term current use of insulin ([facility])- Primary Type 2 diabetes mellitus with diabetic chronic kidney disease ([facility]) Chronic kidney disease, stage 3a (HCC) ([facility]) Morbid (severe) obesity due to excess calories ([facility]) Body mass index (BMI) 45.0-49.9, adult ([facility]) Type 2 diabetes mellitus with other skin ulcer (CODE) ([facility]) Non-pressure chronic ulcer of unspecified part of unspecified lower leg with unspecified severity ([facility]) Peripheral vascular disease, unspecified ([facility]) Peripheral vascular disease, unspecified Other ventricular tachycardia ([facility]) 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 (CODE) ([facility]) Aortic ectasia, unspecified site ([facility]) Aortic ectasia, unspecified site Venous stasis of both lower extremities Essential hypertension Unspecified essential hypertension Type 2 diabetes mellitus without complication, without long-term current use of insulin ([facility])- Primary Chronic kidney disease, stage 3a (HCC) ([facility]) Mixed hyperlipidemia ([facility]/HCC) Mixed hyperlipidemia 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 ([facility]/HCC) Essential hypertension Unspecified essential hypertension Prostate cancer screening Special screening for malignant neoplasm of prostate Obstructive sleep apnea syndrome Obstructive sleep apnea (adult) (pediatric) Chronic obstructive pulmonary disease, unspecified COPD type ([facility]) Venous stasis of both lower extremities Morbid (severe) obesity due to excess calories ([facility]) Body mass index (BMI) 45.0-49.9, adult ([facility]) 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 (CMS/HCC)- Primary 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 (CMS/HCC) Mixed hyperlipidemia ([facility]) Mixed hyperlipidemia documented in this encounter [facility] HealthcareEvaluation note* Diagnosis Type 2 diabetes mellitus without complication, without long-term current use of insulin ([facility])- Primary Essential hypertension Unspecified essential hypertension Varicose veins of bilateral lower extremities with pain Morbid obesity ([facility]) Morbid obesity Encounter for subsequent annual wellness visit (AWV) in Medicare patient- Primary Chronic obstructive pulmonary disease, unspecified COPD type (CMS/HCC) Obstructive sleep apnea syndrome Obstructive sleep apnea (adult) (pediatric) 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 (CMS/HCC) Essential hypertension [...] (CMS/HCC) Body mass index (BMI) 45.0-49.9, adult ([facility]) Type 2 diabetes mellitus with other [...] (CMS/HCC) Mixed hyperlipidemia 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 (CMS/HCC) Essential hypertension [...] osteoarthritis of knee 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 (CMS/HCC) documented in this encounter [facility] HealthcareEvaluation note* Diagnosis Type 2 diabetes mellitus [...] apnea (adult) (pediatric) 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 (CMS/HCC) Essential hypertension [...] (CMS/HCC) Body mass index (BMI) 45.0-49.9, adult ([facility]) Type 2 diabetes mellitus with other [...] (CMS/HCC) Mixed hyperlipidemia 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 (CMS/HCC) Essential hypertension [...] (HCC) (CMS/HCC)- Primary documented in this encounter [facility] HealthcareEvaluation note* Diagnosis Type 2 diabetes mellitus [...] apnea (adult) (pediatric) 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 (CMS/HCC) Essential hypertension [...] (CMS/HCC) Mixed hyperlipidemia 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 (CMS/HCC) Essential hypertension [...] without complications (CMS/HCC) documented in this encounter [facility] HealthcareEvaluation note* Diagnosis Type 2 diabetes mellitus [...] apnea (adult) (pediatric) 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 (CMS/HCC) Essential hypertension [...] (CMS/HCC) Mixed hyperlipidemia 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 (CMS/HCC) Essential hypertension Unspecified essential hypertension Prostate cancer screening Special screening for malignant neoplasm of prostate Obstructive sleep apnea syndrome Obstructive sleep apnea (adult) (pediatric) Chronic obstructive pulmonary disease, unspecified COPD type (CMS/HCC) Venous stasis of both lower extremities Morbid (severe) obesity due to excess calories (CMS/HCC) Body mass index (BMI) 45.0-49.9, adult (CMS/HCC) Anemia, unspecified documented in this encounter [facility] HealthcareEvaluation note* Diagnosis Type 2 diabetes mellitus [...] apnea (adult) (pediatric) 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 (CMS/HCC) Essential hypertension [...] (CMS/HCC) Mixed hyperlipidemia 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 (CMS/HCC) Essential hypertension [...] of insulin (CMS/HCC) documented in this encounter [facility] HealthcareEvaluation note* Diagnosis Type 2 diabetes mellitus [...] apnea (adult) (pediatric) 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 (CMS/HCC) Essential hypertension [...] (CMS/HCC) Mixed hyperlipidemia 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 (CMS/HCC) Essential hypertension Unspecified essential hypertension Prostate cancer screening Special screening for malignant neoplasm of prostate Obstructive sleep apnea syndrome Obstructive sleep apnea (adult) (pediatric) Chronic obstructive pulmonary disease, unspecified COPD type (CMS/HCC) Venous stasis of both lower extremities Morbid (severe) obesity due to excess calories (CMS/HCC) Body mass index (BMI) 45.0-49.9, adult (CMS/HCC) Localized edema Edema documented in this encounter [facility] HealthcareEvaluation note* Diagnosis Type 2 diabetes mellitus [...] apnea (adult) (pediatric) 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 (CMS/HCC) Essential hypertension [...] (CMS/HCC) Mixed hyperlipidemia 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 (CMS/HCC) Essential hypertension [...] diastolic (congestive) heart failure (CMS/HCC) 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 (CMS/HCC) Essential hypertension Unspecified essential hypertension Chronic kidney disease, stage 3a (HCC) (CMS/HCC) Bilateral lower extremity edema Stasis edema with ulcer of both lower extremities (CMS/HCC) Mixed hyperlipidemia (CMS/HCC) Mixed hyperlipidemia Stasis dermatitis 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 hypertension (CMS/HCC) 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 (CMS/HCC) documented in this encounter [facility] HealthcareEvaluation note* Diagnosis Type 2 diabetes mellitus without complication, without long-term current use of insulin (CMS/HCC)- Primary Essential hypertension Unspecified essential hypertension Varicose veins of bilateral lower extremities with pain Morbid obesity (CMS/HCC) Morbid obesity Encounter for subsequent annual wellness visit (AWV) in Medicare patient- Primary Chronic obstructive pulmonary disease, unspecified COPD type (CMS/[facility]) Obstructive sleep apnea syndrome Obstructive sleep apnea (adult) (pediatric) 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 ([facility]) Essential hypertension Unspecified essential hypertension Type 2 diabetes mellitus without complication, without long-term current use of insulin ([facility]) Chronic diastolic congestive heart failure ([facility]) Venous stasis of both lower extremities Bilateral lower extremity edema Morbid obesity ([facility]) Morbid obesity Type 2 diabetes mellitus without complication, without long-term current use of insulin ([facility])- Primary Type 2 diabetes mellitus with diabetic chronic kidney disease ([facility]) Chronic kidney disease, stage 3a (HCC) ([facility]) Morbid (severe) obesity due to excess calories ([facility]) Body mass index (BMI) 45.0-49.9, adult ([facility]) Type 2 diabetes mellitus with other skin ulcer (CODE) ([facility]) Non-pressure chronic ulcer of unspecified part of unspecified lower leg with unspecified severity ([facility]) Peripheral vascular disease, unspecified ([facility]) Peripheral vascular disease, unspecified Other ventricular tachycardia ([facility]) 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 (CODE) ([facility]) Aortic ectasia, unspecified site ([facility]) Aortic ectasia, unspecified site Venous stasis of both lower extremities Essential hypertension Unspecified essential hypertension Type 2 diabetes mellitus without complication, without long-term current use of insulin ([facility])- Primary Chronic kidney disease, stage 3a (HCC) ([facility]) Mixed hyperlipidemia ([facility]) Mixed hyperlipidemia 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 ([facility]) Essential hypertension Unspecified essential hypertension Prostate cancer screening Special screening for malignant neoplasm of prostate Obstructive sleep apnea syndrome Obstructive sleep apnea (adult) (pediatric) Chronic obstructive pulmonary disease, unspecified COPD type ([facility]) Venous stasis of both lower extremities Morbid (severe) obesity due to excess calories ([facility]) Body mass index (BMI) 45.0-49.9, adult ([facility]) Obstructive sleep apnea syndrome- Primary Obstructive sleep apnea (adult) (pediatric) Type 2 diabetes mellitus with diabetic chronic kidney disease ([facility]) 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 (CODE) ([facility]) Morbid (severe) obesity due to excess calories (CMS/HCC) Body mass index (BMI) 45.0-49.9, adult ([facility]/HCC) Type 2 diabetes mellitus with diabetic peripheral angiopathy without gangrene (CMS/HCC) Other ventricular tachycardia (CMS/HCC) Chronic obstructive pulmonary disease, unspecified (CMS/HCC) Chronic diastolic (congestive) heart failure (CMS/HCC) 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 (CMS/HCC) Essential hypertension Unspecified essential hypertension Chronic kidney disease, stage 3a (HCC) (CMS/HCC) Bilateral lower extremity edema Stasis edema with ulcer of both lower extremities (CMS/HCC) Mixed hyperlipidemia (CMS/HCC) Mixed hyperlipidemia Stasis dermatitis 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 hypertension (CMS/HCC) 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 (CMS/HCC) Type 2 diabetes mellitus without complications (CMS/[facility]) documented in this encounter [facility] HealthcareEvaluation note* Diagnosis Type 2 diabetes mellitus without complication, without long-term current use of insulin- Primary Essential hypertension Unspecified essential hypertension Varicose veins of bilateral lower extremities with pain Morbid obesity ([facility]) Morbid obesity Encounter for subsequent annual wellness visit (AWV) in Medicare patient- Primary Chronic obstructive pulmonary disease, unspecified COPD type ([facility]/HCC) Obstructive sleep apnea syndrome Obstructive sleep apnea (adult) (pediatric) 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 (CMS/HCC) Essential hypertension Unspecified essential hypertension Type 2 diabetes mellitus without complication, without long-term current use of insulin Chronic diastolic congestive heart failure ([facility]/HCC) Venous stasis of both lower extremities Bilateral lower extremity edema Morbid obesity ([facility]/HCC) Morbid obesity Type 2 diabetes mellitus without complication, without long-term current use of insulin- Primary Type 2 diabetes mellitus with diabetic chronic kidney disease (CMS/HCC) Chronic kidney disease, stage 3a (HCC) (CMS/HCC) Morbid (severe) obesity due to excess calories ([facility]/HCC) Body mass index (BMI) 45.0-49.9, adult ([facility]) Type 2 diabetes mellitus with other [...] (CMS/HCC) Mixed hyperlipidemia 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 (CMS/HCC) Essential hypertension Unspecified essential hypertension Prostate cancer screening Special screening for malignant neoplasm of prostate Obstructive sleep apnea syndrome Obstructive sleep apnea (adult) (pediatric) Chronic obstructive pulmonary disease, unspecified COPD type (CMS/HCC) Venous stasis of both lower extremities Morbid (severe) obesity due to excess calories (CMS/HCC) Body mass index (BMI) 45.0-49.9, adult ([facility]/HCC) Obstructive sleep apnea syndrome- Primary Obstructive sleep apnea (adult) (pediatric) Type 2 diabetes mellitus with diabetic chronic kidney disease (CMS/HCC) 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 (CODE) Morbid (severe) obesity due to excess calories (CMS/HCC) Body mass index (BMI) 45.0-49.9, adult ([facility]/HCC) Type 2 diabetes mellitus with diabetic peripheral angiopathy without gangrene (CMS/HCC) Other ventricular tachycardia Chronic obstructive pulmonary disease, unspecified Chronic diastolic (congestive) heart failure 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 (CMS/HCC) Essential hypertension Unspecified essential hypertension Chronic kidney disease, stage 3a (HCC) (CMS/HCC) Bilateral lower extremity edema Stasis edema with ulcer of both lower extremities (CMS/HCC) Mixed hyperlipidemia (CMS/HCC) Mixed hyperlipidemia Stasis dermatitis 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 hypertension (CMS/HCC) 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 (CMS/HCC) Chronic obstructive pulmonary disease, unspecified COPD type (CMS/HCC)- Primary 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 (CMS/HCC) Essential hypertension Unspecified essential hypertension Type 2 diabetes mellitus with stage 3 chronic kidney disease, without long-term current use of insulin, unspecified whether stage 3a or 3b CKD (HCC) (CMS/[facility]) MGUS (monoclonal gammopathy of unknown significance) Monoclonal paraproteinemia Encounter for subsequent annual wellness visit (AWV) in Medicare patient Bilateral primary osteoarthritis of knee 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 (CMS/HCC) documented in this encounter [facility] HealthcareEvaluation note* Diagnosis Type 2 diabetes mellitus [...] apnea (adult) (pediatric) 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 (CMS/HCC) Essential hypertension [...] (CMS/HCC) Mixed hyperlipidemia 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 (CMS/HCC) Essential hypertension Unspecified essential hypertension Prostate cancer screening Special screening for malignant neoplasm of prostate Obstructive sleep apnea syndrome Obstructive sleep apnea (adult) (pediatric) Chronic obstructive pulmonary disease, unspecified COPD type (CMS/HCC) Venous stasis of both lower extremities Morbid (severe) obesity due to excess calories (CMS/HCC) Body mass index (BMI) 45.0-49.9, adult ([facility]) Obstructive sleep apnea syndrome- Primary Obstructive sleep apnea (adult) (pediatric) Type 2 diabetes mellitus with diabetic chronic kidney disease (CMS/[facility]) 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 (CODE) Morbid (severe) obesity due to excess calories (CMS/HCC) Body mass index (BMI) 45.0-49.9, adult ([facility]) Type 2 diabetes mellitus with diabetic peripheral angiopathy without gangrene (CMS/[facility]) Other ventricular tachycardia Chronic obstructive pulmonary disease, unspecified Chronic diastolic (congestive) heart failure 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 (CMS/HCC) Essential hypertension Unspecified essential hypertension Chronic kidney disease, stage 3a (HCC) (CMS/[facility]) Bilateral lower extremity edema Stasis edema with ulcer of both lower extremities (CMS/HCC) Mixed hyperlipidemia ([facility]) Mixed hyperlipidemia Stasis dermatitis 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 hypertension ([facility]) 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 ([facility]) Encounter for subsequent annual wellness visit (AWV) in Medicare patient- Primary Chronic obstructive pulmonary disease, unspecified COPD type (CMS/HCC) 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 (CMS/HCC) Essential hypertension Unspecified essential hypertension Type 2 diabetes mellitus with stage 3 chronic kidney disease, without long-term current use of insulin, unspecified whether stage 3a or 3b CKD (HCC) (CMS/[facility]) Neoplasm of uncertain behavior Neoplasm of uncertain behavior, site unspecified Body mass index (BMI) 45.0-49.9, adult ([facility]) Morbid (severe) obesity due to excess calories ([facility]) documented in this encounter [facility] HealthcareEvaluation note* Diagnosis Type 2 diabetes mellitus without complication, without long-term current use of insulin- Primary Essential hypertension Unspecified essential hypertension Varicose veins of bilateral lower extremities with pain Morbid obesity ([facility]) Morbid obesity Encounter for subsequent annual wellness visit (AWV) in Medicare patient- Primary Chronic obstructive pulmonary disease, unspecified COPD type (CMS/HCC) Obstructive sleep apnea syndrome Obstructive sleep apnea (adult) (pediatric) 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 (CMS/HCC) Essential hypertension Unspecified essential hypertension Type 2 diabetes mellitus without complication, without long-term current use of insulin Chronic diastolic congestive heart failure ([facility]) Venous stasis of both lower extremities Bilateral lower extremity edema Morbid obesity ([facility]/HCC) Morbid obesity Type 2 diabetes mellitus without complication, without long-term current use of insulin- Primary Type 2 diabetes mellitus with diabetic chronic kidney disease ([facility]/HCC) Chronic kidney disease, stage 3a (HCC) ([facility]) Morbid (severe) obesity due to excess calories ([facility]) Body mass index (BMI) 45.0-49.9, adult ([facility]) Type 2 diabetes mellitus with other skin ulcer (CODE) Non-pressure chronic ulcer of unspecified part of unspecified lower leg with unspecified severity ([facility]) Peripheral vascular disease, unspecified ([facility]) Peripheral vascular disease, unspecified Other ventricular tachycardia 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 (CODE) Aortic ectasia, unspecified site ([facility]) Aortic ectasia, unspecified site Venous stasis of both lower extremities Essential hypertension Unspecified essential hypertension Type 2 diabetes mellitus without complication, without long-term current use of insulin- Primary Chronic kidney disease, stage 3a (HCC) ([facility]) Mixed hyperlipidemia ([facility]) Mixed hyperlipidemia 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 ([facility]) Essential hypertension Unspecified essential hypertension Prostate cancer screening Special screening for malignant neoplasm of prostate Obstructive sleep apnea syndrome Obstructive sleep apnea (adult) (pediatric) Chronic obstructive pulmonary disease, unspecified COPD type ([facility]) Venous stasis of both lower extremities Morbid (severe) obesity due to excess calories ([facility]) Body mass index (BMI) 45.0-49.9, adult ([facility]) Obstructive sleep apnea syndrome- Primary Obstructive sleep apnea (adult) (pediatric) Type 2 diabetes mellitus with diabetic chronic kidney disease ([facility]) 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 (CODE) Morbid (severe) obesity due to excess calories ([facility]) Body mass index (BMI) 45.0-49.9, adult ([facility]) Type 2 diabetes mellitus with diabetic peripheral angiopathy without gangrene ([facility]) Other ventricular tachycardia Chronic obstructive pulmonary disease, unspecified Chronic diastolic (congestive) heart failure 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 ([facility]) Essential hypertension Unspecified essential hypertension Chronic kidney disease, stage 3a (HCC) ([facility]) Bilateral lower extremity edema Stasis edema with ulcer of both lower extremities ([facility]/HCC) Mixed hyperlipidemia ([facility]/HCC) Mixed hyperlipidemia Stasis dermatitis 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 hypertension ([facility]) 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 ([facility]) Encounter for subsequent annual wellness visit (AWV) in Medicare patient- Primary Chronic obstructive pulmonary disease, unspecified COPD type ([facility]/HCC) 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 ([facility]) Essential hypertension Unspecified essential hypertension Type 2 diabetes mellitus with stage 3 chronic kidney disease, without long-term current use of insulin, unspecified whether stage 3a or 3b CKD (HCC) ([facility]) Neoplasm of uncertain behavior Neoplasm of uncertain behavior, site unspecified Body mass index (BMI) 45.0-49.9, adult ([facility]) Morbid (severe) obesity due to excess calories ([facility]) Epidermal inclusion cyst- Primary Sebaceous cyst Neoplasm of unspecified behavior of bone, soft tissue, and skin documented in this encounter [facility] HealthcareEvaluation note* Diagnosis Type 2 diabetes mellitus without complication, without long-term current use of insulin ([facility])- Primary Essential hypertension Unspecified essential hypertension Varicose veins of bilateral lower extremities with pain Morbid obesity ([facility]) Morbid obesity Encounter for subsequent annual wellness visit (AWV) in Medicare patient- Primary Chronic obstructive pulmonary disease, unspecified COPD type (HCC) Obstructive sleep apnea syndrome Obstructive sleep apnea (adult) (pediatric) 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 Essential hypertension Unspecified essential hypertension Type 2 diabetes mellitus without complication, without long-term current use of insulin (HCC) Chronic diastolic congestive heart failure (HCC) Venous stasis of both lower extremities Bilateral lower extremity edema Morbid obesity ([facility]) Morbid obesity Type 2 diabetes mellitus without complication, without long-term current use of insulin (HCC)- Primary Type 2 diabetes mellitus with diabetic chronic kidney disease (HCC) Chronic kidney disease, stage 3a ([facility]) Morbid (severe) obesity due to excess calories ([facility]) Body mass index (BMI) 45.0-49.9, adult ([facility]) Type 2 diabetes mellitus with other skin ulcer (CODE) ([facility]) Non-pressure chronic ulcer of unspecified part of unspecified lower leg with unspecified severity (HCC) Peripheral vascular disease, unspecified Other ventricular tachycardia (HCC) 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 (CODE) (HCC) Aortic ectasia, unspecified site Venous stasis of both lower extremities Essential hypertension Unspecified essential hypertension Type 2 diabetes mellitus without complication, without long-term current use of insulin (HCC)- Primary Chronic kidney disease, stage 3a ([facility]) Mixed hyperlipidemia Mixed hyperlipidemia 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 Essential hypertension Unspecified essential hypertension Prostate cancer screening Special screening for malignant neoplasm of prostate Obstructive sleep apnea syndrome Obstructive sleep apnea (adult) (pediatric) Chronic obstructive pulmonary disease, unspecified COPD type (HCC) Venous stasis of both lower extremities Morbid (severe) obesity due to excess calories [place] Body mass index (BMI) 45.0-49.9, adult [place] Obstructive sleep apnea syndrome- Primary Obstructive sleep apnea (adult) (pediatric) 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 (CODE) (HCC) Morbid (severe) obesity due to excess calories [place] Body mass index (BMI) 45.0-49.9, adult [place] Type 2 diabetes mellitus with diabetic peripheral angiopathy without gangrene (HCC) Other ventricular tachycardia (HCC) Chronic obstructive pulmonary disease, unspecified (HCC) Chronic diastolic (congestive) heart failure (HCC) 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 Essential hypertension Unspecified essential hypertension Chronic kidney disease, stage 3a ([facility]) Bilateral lower extremity edema Stasis edema with ulcer of both lower extremities (HCC) Mixed hyperlipidemia Mixed hyperlipidemia Stasis dermatitis 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 hypertension (HCC) 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 Encounter for subsequent annual wellness visit (AWV) in Medicare patient- Primary Chronic obstructive pulmonary disease, unspecified COPD type (HCC) 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 Essential hypertension Unspecified essential hypertension Type 2 diabetes mellitus with stage 3 chronic kidney disease, without long-term current use of insulin, unspecified whether stage 3a or 3b CKD (HCC) Neoplasm of uncertain behavior Neoplasm of uncertain behavior, site unspecified Body mass index (BMI) 45.0-49.9, adult [place] Morbid (severe) obesity due to excess calories ([facility]) Neoplasm of unspecified behavior of bone, soft tissue, and skin- Primary documented in this encounter [facility] HealthcareEvaluation note* Diagnosis Type 2 diabetes mellitus without complication, without long-term current use of insulin (HCC)- Primary Essential hypertension Unspecified essential hypertension Varicose veins of bilateral lower extremities with pain Morbid obesity ([facility]) Morbid obesity Encounter for subsequent annual wellness visit (AWV) in Medicare patient- Primary Chronic obstructive pulmonary disease, unspecified COPD type (HCC) Obstructive sleep apnea syndrome Obstructive sleep apnea (adult) (pediatric) 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 Essential hypertension Unspecified essential hypertension Type 2 diabetes mellitus without complication, without long-term current use of insulin ([facility]) Chronic diastolic congestive heart failure ([facility]) Venous stasis of both lower extremities Bilateral lower extremity edema Morbid obesity ([facility]) Morbid obesity Type 2 diabetes mellitus without complication, without long-term current use of insulin (HCC)- Primary Type 2 diabetes mellitus with diabetic chronic kidney disease (HCC) Chronic kidney disease, stage 3a [place] Morbid (severe) obesity due to excess calories [place] Body mass index (BMI) 45.0-49.9, adult [place] Type 2 diabetes mellitus with other skin ulcer (CODE) ([facility]) Non-pressure chronic ulcer of unspecified part of unspecified lower leg with unspecified severity ([facility]) Peripheral vascular disease, unspecified Other ventricular tachycardia ([facility]) 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 (CODE) ([facility]) Aortic ectasia, unspecified site Venous stasis of both lower extremities Essential hypertension Unspecified essential hypertension Type 2 diabetes mellitus without complication, without long-term current use of insulin (HCC)- Primary Chronic kidney disease, stage 3a [place] Mixed hyperlipidemia Mixed hyperlipidemia 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 Essential hypertension Unspecified essential hypertension Prostate cancer screening Special screening for malignant neoplasm of prostate Obstructive sleep apnea syndrome Obstructive sleep apnea (adult) (pediatric) Chronic obstructive pulmonary disease, unspecified COPD type (HCC) Venous stasis of both lower extremities Morbid (severe) obesity due to excess calories [place] Body mass index (BMI) 45.0-49.9, adult [place] Obstructive sleep apnea syndrome- Primary Obstructive sleep apnea (adult) (pediatric) 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 (CODE) (HCC) Morbid (severe) obesity due to excess calories ([facility]) Body mass index (BMI) 45.0-49.9, adult ([facility]) Type 2 diabetes mellitus with diabetic peripheral angiopathy without gangrene (HCC) Other ventricular tachycardia (HCC) Chronic obstructive pulmonary disease, unspecified (HCC) Chronic diastolic (congestive) heart failure (HCC) 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 Essential hypertension Unspecified essential hypertension Chronic kidney disease, stage 3a ([facility]) Bilateral lower extremity edema Stasis edema with ulcer of both lower extremities (HCC) Mixed hyperlipidemia Mixed hyperlipidemia Stasis dermatitis 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 hypertension (HCC) 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 Encounter for subsequent annual wellness visit (AWV) in Medicare patient- Primary Chronic obstructive pulmonary disease, unspecified COPD type (HCC) 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 Essential hypertension Unspecified essential hypertension Type 2 diabetes mellitus with stage 3 chronic kidney disease, without long-term current use of insulin, unspecified whether stage 3a or 3b CKD (HCC) Neoplasm of uncertain behavior Neoplasm of uncertain behavior, site unspecified Body mass index (BMI) 45.0-49.9, adult ([facility]) Morbid (severe) obesity due to excess calories ([facility]) Essential hypertension- Primary Unspecified essential hypertension Obstructive sleep apnea syndrome Obstructive sleep apnea (adult) (pediatric) Chronic obstructive pulmonary disease, unspecified COPD type (HCC) Chronic diastolic (congestive) heart failure (HCC) 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 Bilateral lower extremity edema Type 2 diabetes mellitus with stage 3 chronic kidney disease, without long-term current use of insulin, unspecified whether stage 3a or 3b CKD (HCC) Morbid (severe) obesity due to excess calories ([facility]) MGUS (monoclonal gammopathy of unknown significance) Monoclonal paraproteinemia 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 Mixed hyperlipidemia Mixed hyperlipidemia 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 documented in this encounter [facility] HealthcareEvaluation noteNo assessment information availableFirOhioHealth [facility] Work Phone: History general Narrative - Reported* Type Description Date Medical History diabetes mallitus Medical History HTN Surgical History knee replacement 2010 [facility] Other Reason for referral (narrative)No reason for referral [facility] Work Phone: Reason for visit Narrative* Consultation (Routine) - Closed Specialty Diagnoses / Procedures Referred By Contac t Referred To Contact Dermatology Diagnoses Neoplasm of uncertain behavior Procedures CT OFFICE/OUTPATIENT NEW HIGH MDM 60 MINUTES Teressa Sierra, CUAUHTEMOC [address] [place] [address] Phone: tel: fax: Maribeth Yoo, LINE DRIVER-JUNIOR BUYER [address] [place] [address] Phone: tel: fax: Referral ID Status Reason Start Date Expiration Date V isits Requested Visits Authorized [id number] Closed Specialty Services Required 12/19/2024 06/17/2025 1 1 [facility] Summary Purpose Family History No Family History Records FoundNo Family History Records FoundNo Family History Records FoundNo Family History Records FoundNo Family History Records FoundNo Family History Records Found Advance Directives No Advanced Directives Records Found Advance Directive Response Recorded Date/ Time Advance Directives No October 22 12:42pm Chief Complaint and Reason for Visit Chief Complaint Admit Date Unknown May 23, 2025 1:37pm Leg wound- hospital rec. he come to us O ct2024 10:30am Reason for Visit Admit Date Venous stasis of both lower extremities May 31, 2025 10:30am Additional Source Comments (unrecognized sect ion and content) No Status Records FoundNo Status Records FoundNo Status Records FoundNo Status Records FoundNo Status Records FoundNo Status Records Found INFORMATION SOURCE (unrecogn ized section and content) DATE CREATED AUTHOR 09/01/2021 [facility] DATE CREATED AUTHOR AUTHOR'S ORGANIZ ATION 04/06/[address] [facility] DATE CREATED AUTHOR AUTHOR'S ORGANIZ ATION 11/04/2022 [facility] DATE CREATED AUTHOR AUTHOR'S ORGANIZ ATION 03/04/2025 [facility] DATE CREATED AUTHOR AUTHOR'S ORGANIZ ATION 03/23/2025 [facility] DATE CREATED AUTHOR AUTHOR'S ORGANIZ ATION 06/11/2025 [facility] REASON FOR VISIT (unrecogniz ed section and content) Reason Onset Date Comments Med Refill 06/13/2024 Reason Comments Med Refill Reason Comments Diabetes Reason Comments Medicare Annual Wellness Visit Initial Care Teams (unrecognized sec tion and content) Petroleum Inspector Supervisor Relationship Specialty Start Date End Date Mal Barnes MD [address] [place] [address] PCP - External PCP Family Medicine 04/24/23 Gilberto Stockton MD [address] [place] [address] PCP - Devoted 08/24/23 Gilberto Stockton MD [address] [place] [address] PCP - General Family Medicine 03/09/24 Teressa Sierra NP [address] [place] [address] Nurse Practitioner Family Medicine 09/09/23 Petroleum Inspector Supervisor Relationship Specialty Start Date End Date Mal Barnes MD [address] [place] [address] PCP - External PCP Family Medicine 04/24/23 Gilberto Stockton MD [address] [place] [address] PCP - Devoted 08/24/23 Gilberto Stockton MD [address] [place] [address] PCP - General Family Medicine 03/09/24 Teressa Sierra NP [address] [place] [address] Nurse Practitioner Family Medicine 09/09/23 Petroleum Inspector Supervisor Relationship Specialty Start Date End Date Mal Barnes MD [address] [place] [address] PCP - External PCP Family Medicine 04/24/23 Gilberto Stockton MD [address] [place] [address] PCP - Devoted 08/24/23 Gilberto Stockton MD [address] [place] [address] PCP - General Family Medicine 03/09/24 Teressa Sierra NP [address] [place] [address] Nurse Practitioner Family [facility] 09/09/23 Petroleum Inspector Supervisor Relationship Specialty Start Date End Date Mal Barnes MD [address] [place] [address] PCP - External PCP Family Medicine 04/24/23 Gilberto Stockton MD [address] [place] [address] PCP - Devoted 08/24/23 Gilberto Stockton MD [address] [place] [address] PCP - General Family Medicine 03/09/24 Teressa Sierra NP [address] [place] [address] Nurse Practitioner Family Medicine 09/09/23 Petroleum Inspector Supervisor Relationship Specialty Start Date End Date Mal Barnes MD [address] [facility] [address] PCP - External PCP Family Medicine 04/24/23 Gilberto Stockton MD [address] [place] [address] PCP - Devoted 08/24/23 Gilberto Stockton MD [address] [place] [address] PCP - General Family Medicine 03/09/24 Teressa Sierra NP [address] [place] [address] Nurse Practitioner Family [facility] 09/09/23 Petroleum Inspector Supervisor Relationship Specialty Start Date End Date Mal Barnes MD [address] [facility] [address] PCP - External PCP Family Medicine 04/24/23 Gilberto Stockton MD [address] [place] [address] PCP - Devoted 08/24/23 Gilberto Stockton MD [address] [place] [address] PCP - General Family Medicine 03/09/24 Teressa Sierra NP [address] [place] [address] Nurse Practitioner Family Medicine 09/09/23 Petroleum Inspector Supervisor Relationship Specialty Start Date End Date Mal Barnes MD [address] [facility] [place] [address] PCP - External PCP Family Medicine 04/24/23 Gilberto Stockton MD [address] [place] [address] PCP - Devoted 08/24/23 08/23/24 Gilberto Stockton MD [address] [place] [address] PCP - General Family Medicine 03/09/24 Teressa Sierra NP [address] [place] [address] Nurse Practitioner Family Medicine 09/09/23 Petroleum Inspector Supervisor Relationship Specialty Start Date End Date Mal Barnes MD [address] [facility] [place] [address] PCP - External PCP Family Medicine 04/24/23 Gilberto Stockton MD [address] [place] [address] PCP - Devoted 08/24/23 08/23/24 Gilberto Stockton MD [address] [place] [place] [address] PCP - General Family Medicine 03/09/24 Teressa Sierra NP [address] [place] [address] Nurse Practitioner Family Medicine 09/09/23 Petroleum Inspector Supervisor Relationship Specialty Start Date End Date Mal Barnes MD [address] [place] [address] PCP - External PCP Family Medicine 04/24/23 Gilberto Stockton MD [address] [place] [address] PCP - General Family Medicine 03/09/24 Teressa Sierra NP [address] [place] [address] Nurse Practitioner Family Medicine 09/09/23 Petroleum Inspector Supervisor Relationship Specialty Start Date End Date Mal Barnes MD [address] [place] [address] PCP - External PCP Family Medicine 04/24/23 Gilberto Stockton MD [address] [place] [address] PCP - General Family Medicine 03/09/24 Teressa Sierra NP [address] [place] [address] Nurse Practitioner Family Medicine 09/09/23 Petroleum Inspector Supervisor Relationship Specialty Start Date End Date Mal Barnes MD [address] [place] [address] PCP - External PCP Family Medicine 04/24/23 Gilberto Stockton MD [address] [place] [address] PCP - General Family Medicine 03/09/24 Teressa Sierra NP [address] [place] [address] Nurse Practitioner Family Medicine 09/09/23 Petroleum Inspector Supervisor Relationship Specialty Start Date End Date Mal Barnes MD [address] [place] [address] PCP - External PCP Family Medicine 04/24/23 Gilberto Stockton MD [address] [place] [address] PCP - General Family Medicine 03/09/24 Teressa Sierra NP [address] [place] [address] Nurse Practitioner Family Medicine 09/09/23 Petroleum Inspector Supervisor Relationship Specialty Start Date End Date Mal Barnes MD [address] [place] [address] PCP - External PCP Family Medicine 04/24/23 Gilberto Stockton MD [address] [place] [address] PCP - General Family Medicine 03/09/24 Teressa Sierra NP [address] [place] [address] Nurse Practitioner Family Medicine 09/09/23 Petroleum Inspector Supervisor Relationship Specialty Start Date End Date Mal Barnes MD [address] [facility] [place] [address] PCP - External PCP Family Medicine 04/24/23 Gilberto Stockton MD [address] [place] [address] PCP - General Family Medicine 03/09/24 Gilberto Stockton MD [address] [place] [address] PCP - [facility] [place] 08/24/2408/23 Teressa Sierra NP [address] [place] [address] Nurse Practitioner Family Medicine 09/09/23 Petroleum Inspector Supervisor Relationship Specialty Start Date End Date Mal Barnes MD [address] [place] [facility] [address] PCP - External PCP Family Medicine 04/24/23 Gilberto Stockton MD [address] [place] [address] PCP - General Family Medicine 03/09/24 Gilberto Stockton MD [address] [place] [address] PCP - [facility] [place] 08/24/2408/23 Teressa Sierra NP [address] [place] [address] Nurse Practitioner Family Medicine 09/09/23 Petroleum Inspector Supervisor Relationship Specialty Start Date End Date Mal Barnes MD [address] [facility] [place] [address] PCP - External PCP Family Medicine 04/24/23 Gilberto Stockton MD [address] [place] [address] PCP - General Family Medicine 03/09/24 Gilberto Stockton MD [address] [place] [address] PCP - [facility] [place] 08/24/2408/23 Teressa Sierra NP [address] [place] [address] Nurse Practitioner Family Medicine 09/09/23 Petroleum Inspector Supervisor Relationship Specialty Start Date End Date Mal Barnes MD [address] [facility] [place] [address] PCP - External PCP Family Medicine 04/24/23 Gilberto Stockton MD [address] [place] [address] PCP - General Family Medicine 03/09/24 Gilberto Stockton MD [address] [place] [address] PCP - [facility] [place] 08/24/2408/23 Teressa Sierra NP [address] [place] [address] Nurse Practitioner Family Medicine 09/09/23 Petroleum Inspector Supervisor Relationship Specialty Start Date End Date Mal Barnes MD [address] [facility] [place] [address] PCP - External PCP Family Medicine 04/24/23 Gilberto Stockton MD [address] [place] [address] PCP - General Family Medicine 03/09/24 Gilberto Stockton MD [address] [place] [address] PCP - [facility] [place] 08/24/2408/23 Teressa Sierra NP [address] [place] [address] Nurse Practitioner Family Medicine 09/09/23 Petroleum Inspector Supervisor Relationship Specialty Start Date End Date Mal Barnes MD [address] [facility] [place] [address] PCP - External PCP Family Medicine 04/24/23 Gilberto Stockton MD [address] [place] [address] PCP - General Family Medicine 03/09/24 Gilberto Stockton MD [address] [place] [address] PCP - [facility] [place] 08/24/2408/23 Teressa Sierra NP [address] [place] [address] Nurse Practitioner Family Medicine 09/09/23 Petroleum Inspector Supervisor Relationship Specialty Start Date End Date Mal Barnes MD [address] [place] [address] PCP - External PCP Family Medicine 04/24/23 Gilberto Stockton MD [address] [place] [address] PCP - General Family Medicine 03/09/24 Gilberto Stockton MD [address] [place] [address] PCP - [facility] [place] 08/24/2408/23 Teressa Sierra NP [address] [place] [address] Nurse Practitioner Family Medicine 09/09/23 Petroleum Inspector Supervisor Relationship Specialty Start Date End Date Mal Barnes MD PCP - External PCP Family Medicine 04/24/23 Gilberto Stockton MD [address] [place] [address] PCP - General Family Medicine 03/09/24 Gilberto Stockton MD [address] [place] [address] PCP - [facility] [place] 08/24/2408/23 Teressa Sierra NP [address] [place] [address] Nurse Practitioner [facility] Medicine 09/09/23 Petroleum Inspector Supervisor Relationship Specialty Start Date End Date Mal Barnes MD PCP - External PCP Family Medicine 04/24/23 Gilberto Stockton MD [address] [place] [address] PCP - General Family Medicine 03/09/24 Gilberto Stockton MD [address] [place] [address] PCP - Medical [facility] 08/24/2408/23 Teressa Sierra NP [address] [place] [address] Nurse Practitioner [facility] Medicine 09/09/23 Team Status: Active Member Role Status Dates Jefry Hardin DO Attending Provider Active Sta rt: May 23, 2025 Team Status: Inactive Member Role Status Dates King Aragon MD Attending Provider Active Sta rt: May 23, 2025 End: May 23, 2025 Team Status: Active Member Role Status Dates King Aragon MD Attending Provider Active Sta rt: May 24, 2025 Team Status: Active Member Role Status Dates Teressa Sierra NP-C Primary Care Provider Active Team Status: Active Member Role Status Dates King Aragon MD Attending Provider Active Sta rt: May 25, 2025 Team Status: Active Member Role Status Dates King Aragon MD Attending Provider Active Sta rt: May 26, 2025 Team Status: Active Member Role Status Dates Aries Perez DO Attending Provider Active Start: May 28, 2025 Team Status: Inactive Member Role Status Dates ELFEGO Elizalde Primary Care Provider Active Start: May 31, 2025 End: May 31, 2025 Biju Monroe MD Attending Provider Active Start: May 31, 2025 End: May 31, 2025 Team Status: Active Member Role Status Dates ELFEGO Elizalde Primary Care Provider Active Start: May 31, 2025 Biju Monroe MD Attending Provider Active Start: May 31, 2025 Team Status: Inactive Member Role Status Dates ELFEGO Elizalde Primary Care Provider Active Start: June 05, 2025 End: June 05, 2025 ELFEGO Elizalde Attending Provider Active Start: June 05, 2025 End: June 05, 2025 Goals (unrecognized section and content) Goals may be documented in a n alternate section FOR RECORDS PERTAINING TO PATIENTS WHO ARE [...] BE BASED ON THE PRIMARY CLINICAL RECORDS. [facility] [employer] provides no warranty or guarantee of the accuracy or completeness of information in this document.
[2025-06-12 13:01] LABS: Hematocrit 31.2 % (42.0-54.0); Hemoglobin 10.3 g/dL (14.0-18.0); Immature Granulocytes Abs Auto 0.01 10^3/uL (0.00-0.03); Immature Granulocytes Pct Auto 0.3 % (0.0-0.5); Lymphocytes Absolute Auto 1.0 10^3/uL (1.2-3.8); Mean Corpuscular HGB Conc 33.0 g/dL (29.9-35.2); Mean Corpuscular Hemoglobin 30.2 pg (25.9-34.0); Mean Corpuscular Volume 91.5 fL (80.0-94.0); Platelet Count 117 10^3/uL (150-450); Red Blood Count 3.41 10^6/uL (4.70-6.10); White Blood Count 3.8 10^3/uL (4.0-11.0)
[2025-06-12 13:05] LABS: Anion Gap 12.6; Blood Urea Nitrogen 21.0 mg/dL (7.0-18.0); Calcium 8.4 mg/dL (8.5-10.1); Carbon Dioxide 24.0 mmol/L (21.0-32.0); Chloride 101 mmol/L (98-107); Estimated GFR (African America >60 (>=60 mL/min/1.73m^2); Estimated GFR (Non-African Ame 50 (>=60 mL/min/1.73m^2); Glucose 117 mg/dL (74-106); Potassium 3.6 mmol/L (3.5-5.1); Sodium 134 mmol/L (136-145)
== END 2025-06-12 12:15 | disposition home or self-care (01) ==
LOC: LAB 12:14
PROVIDERS: PCP Nurse Practitioner; Visit Provider Nurse Practitioner
DX: R79.89 Other specified abnormal findings of blood chemistry (principal); Z13.0 Encounter for screening for diseases of the blood and blood-forming organs and certain disorders involving the immune mechanism; Z13.228 Encounter for screening for other metabolic disorders
CPT/HCPCS: 36415; 80048; 85025

== ENCOUNTER 2025-06-13 10:26 | Outpatient (OUT) | payer MEDICARE, SELFPAY ==
--- OUTSIDE RECORDS SUMMARY | 2025-02-07 06:30 | XMS_ITS ---
Author Organization [facility] in [place] Address [address] [place] [address] Care Team Providers Care Bond Writer Name Role Phone Teressa Sierra CNP Primary Care Provider Unavail able Wallace Mayers Unavailable [phone] Allergies No Known Allergies REASON FOR VISIT 1y COPD Medications Medication SIG (Take, Route, Frequency, Duration) Notes Start Date End Date Status Trelegy Ellipta 100-62.5-25 MCG/ACT 1 puff Inhalation QD; Duration: 90 days Rinse after use Rinse after use 06/22/2023 ActiveIsosorbide Mononitrate ER 30 MG1 tablet in the morning Orally Once a day ActiveFeroSul 325 (65 Fe) MGTAKE 1 TABLET BY MOUTH EVERY MORNING WITH a meal Oral; Duration: 72 DaysActiveSpironolactone 25 MG1 tablet OrallyActiveOzempic (0.25 or 0.5 MG/DOSE) 2 MG/3MLSubcutaneous; Duration: 56 DaysActiveAspirin 81 81 MG1 tablet Orally Once a dayActiveAlbuterol Sulfate HFA 108 (90 Base) MCG/ACT2 puffs as needed for SOB Inhalation Q4H; Duration: 90 daysActiveAtorvastatin Calcium 40 MG1 tablet Orally Once a dayActiveCeleBREX 200 MG1 capsule with food Orally Once a dayActiveCarvedilol 12.5 MG1 tablet with food Orally Twice a day Active Social History Tobacco Use: Social History Observation Description Date Details (start date - stop date) Former Smoker NA - NA Tobacco Control (Standard) Question Answer Notes Tobacco use: Former smoker How long has it been since you last smoked?1-5 yearsAdditional Findings: Tobacco gep-ikrjSf-srkiqsyn cigarette smoker (10-19/day) Encounters Encounter Location Date Provider Diagnosis Pulmonary Medicine [place] [address] [place] [address] 02/07/2025 Wallace Mayers Plan Of Treatment No Information Procedure Notes * CategorySub-CategoryDetailNotesPFTData:04/05/2021 - [facility]-FEV1/FVC: 68%-FEV1: 76%-FVC: 80%-No bronchodilator administered-RV: 151%-T%-DLCO: 58%-Flow-volume loop: Moderate obstructionAlpha-1 AntitrypsinScreening Date: 02/12/2023enotype:MM Progress Notes * Shan MCQUEEN ADOB:[birth year] (80 yo M)Acc No.[id number]:02/07/2025 UNLOCKED PROGRESS NOTE Follow Up Patient: Shan TELLEZ :?Wallace Mayers, DODOB:1945???Age:79 Y ???Sex:MaleDate:02/07/2025Phone:[phone]:[address] [place] [address], [place], [place]Pcp:Teressa Sierra, SALT MANAGER Subjective: * Chief Complaints: * 1 . 1y COPD. * Medical History: C oronary arteriosclerosis in ak chin artery, Chronic diastolic (congestive) heart failure, Benign [...] History: M other: respiratory diseases, diagnosed with Heart Disease. S ister(s): pancreatic cancer, diagnosed with Cancer. P aternal uncle: Lung cancer, diagnosed with Cancer. * Social History: ???Tobacco Use:?Tobacco Control (Standard)?Tobacco use:?Former smoker ?How long has it been since you last smoked? 1-5 years ?Additional Findings: Tobacco non-user?Ex-moderate cigarette smoker (10-19/day) ?Electronic Cigarette use?Current user?No ?LM: Additional Tobacco Questions?Number of Years Pt Smoked:?28 ?Number of Packs per Day:?1 (28 pack-years) ?When did you stop smokin. 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 ???Drugs/Alcohol:?Drugs?Have you used drugs other than those for medical reasons in the past 12 months??No ?Does the Patient have a History of Drug Abusein the Past??No ?Caffeine?Intake:?none ?Do you drink alcohol?: Yes, Daily. ?Do you smoke marijuana?: Denies. * Medications: T [...] Tablet 1 tablet Orally , Taking Trelegy Ellipta(Cjhdpqurlru-Zpebofbaa-Adsuhx) 100-62.5-25 MCG/ACT Aerosol Powder Breath Activated 1 puff Inhalation QD Rinse after use, Notes to Pharmacist: Rinse after use * Allergies: N .K.D.A. Objective: * Vitals: Assessment: Plan: * Treatment: * Procedures: ???Alpha-1 Antitrypsin:?Screening Date:?02/12/2023.?Genotype:?MM.?PFT:?Data:? 04/05/2021 - [facility] -FEV1/FVC: 68% -FEV1: 76% -FVC: 80% -No bronchodilator administered -RV: 151% -T% -DLCO: 58% -Flow-volume loop: Moderate obstruction.? * Preventive Medicine: ??COVID Vaccination:?Has patient had COVID Vaccination?COVID Vaccination?Yes 10/30/2020 ??Immunization Status:?Pneumovacc?Pt Refused.?Influenza?Pt Refused.? ??Screenings/Counseling:?FALL RISK SCREENING?Fall Risk Assessment:?Two or more falls without injury in the past year ?Are you afraid of falling??Yes ?TOBACCO ACTION PLAN?Patient counselled on the dangers of tobacco use and urged to quit.? 02/10/2024 Former ?Educational materials on smoking cessation provided?02/10/2024 Former ?FLU EXCLUSION?Reason:?Patient Reason refused/declined ?Type of Patient Reason:?Drug declined by patient ?BMI ACTION PLAN?Above Normal BMI Follow-up?Dietary management education, guidance, and counseling * * Electronic signature of Wallace Mayers DO on 06/13/2025 at 10:31 AM EDTSign off status: PendingVisit Status:?N/S N/C (No Show/No Charge) * Provider: Bobby Mayers DO Date: 0 02/07/2025 Generated for Printing/Faxing/eTransmitting on:?06/13/2025 10:31 AM EDT
--- OUTSIDE RECORDS SUMMARY | 2025-06-05 06:34 | XMS_ITS | Continuity of Care Document ---
Author Organization [facility] Address [address] [place] [address] Phone Care Team Providers Care Lens Molder Name Role Phone Jefry Hardin DO Attending Provider [phone] King Aragon MD Attending Provider Aries Perez DO Attending Provider Teressa Sierra NP-C Primary Care Provider Biju Monroe MD Attending Provider [phone] Teressa Sierra CERAMIC ENGINEER-C Attending Provider Care Teams Patient Care Team Team Status: Active Member Role Status Dates Teressa Sierra NP-Gely Primary Care Provider Active Visit Care Team Team Status: Active Member Role Status Dates Jefry Hardin DO Attending Provider Active Sta rt: May 23, 2025 Visit Care Team Team Status: Inactive Member Role Status Dates King Aragon MD Attending Provider Active Sta rt: May 23, 2025 End: May 23, 2025 Visit Care Team Team Status: Active Member Role Status Dates King Aragon MD Attending Provider Active Sta rt: May 24, 2025 Visit Care Team Team Status: Active Member Role Status Dates King Aragon MD Attending Provider Active Sta rt: May 25, 2025 Visit Care Team Team Status: Active Member Role Status Dates King Aragon MD Attending Provider Active Sta rt: May 26, 2025 Visit Care Team Team Status: Active Member Role Status Dates Aries Perez DO Attending Provider Active Start: May 28, 2025 Visit Care Team Team Status: Inactive Member Role Status Dates ELFEGO Elizalde Primary Care Provider Active Start: May 31, 2025 End: May 31, 2025Lobo Sadler ProviderActiveStart: May 31, 2025 End: May 31, 2025 Visit Care Team Team Status: Inactive Member Role Status Dates ELFEGO Elizalde Primary Care Provider Active Start: May 31, 2025 End: May 31, 2025Lobo Sadler ProviderActiveStart: May 31, 2025 End: May 31, 2025 Patient Care Team Team Status: Inactive Member Role Status Dates ELFEGO Elizalde Primary Care Provider Active Start: June 05, 2025 End: June 05, 2025YIN ElizaldeCAttending ProviderActiveStart: June 05, 2025 End: June 05, 2025 Chief Complaint and Reason for Visit Chief Complaint Admit Date Unknown May 23, 2025 1:37pm Leg wound- hospital rec. he come to us O ctober 2024 10:30am Cellulitis June 05, 2025 9 :43am Reason for Visit Admit Date Venous stasis of both lower extremities May 31, 2025 10:30am Diastolic dysfunction with chronic heart failure June 05, 2025 9:43am Morbid obesity due to excess calories Oc tober 2024 9:43am Type 2 diabetes mellitus, wi thout long-term current use of insulin June 05, 2025 9:43am Nicotine dependence June 05, 2025 9 :43am Wound cellulitis June 05, 2025 9 :43am Allergies, Adverse Reactions, Alerts Allergen Type Severity Reaction Last Updated Verified Status No Known Allergies Allergy Unknown June 05, 2025 8:24amYesActive Social History Smoking Status Status Start Date End Date Date of Observa tion Ex-smoker (finding) May 31, 2025 11:50am Observation Status Observation Response Date of Response Legal Sex Male (finding) Sex Assigned At BirthMaleSept1944 Problems Active Problems Medical Problem Onset Date Status Comments Hyperpigmentation Unknown Active Nicotine dependenceUnknownActiveOSA (obstructive sleep apnea)UnknownActive Bilateral primary osteoarthritis of kneeUnknownActiveDiabetesUnknownActive LymphorrheaUnknownActiveDecreased hearingUnknownActiveCAD (coronary artery disease)UnknownActivePapillomatosisUnknownActiveEdemaUnknownActiveInflammation UnknownActiveLymphedemaUnknownActiveMixed hyperlipidemiaUnknownActiveMGUS (monoclonal gammopathy of unknown significance)UnknownActiveMyocardial infarctionUnknownActiveVenous stasis of both lower extremitiesUnknownActive Pericardial effusionUnknownActiveVentricular tachycardiaUnknownActiveDiastolic dysfunction with chronic heart failureUnknownActivePeripheral vascular disease UnknownActiveMorbid obesity due to excess caloriesUnknownActiveAortic ectasia UnknownActiveType 2 diabetes mellitus, without long-term current use of insulin UnknownActiveIDA (iron deficiency anemia)UnknownActiveS/P cholecystectomyUnknown ActiveS/P appendectomyUnknownActiveSolitary pulmonary noduleUnknownActiveH/O total knee replacementUnknownActiveb/l kneesCOPD (chronic obstructive pulmonary disease)UnknownActiveCKD stage 3a, GFR 45-59 ml/minUnknownActiveH/O heart bypass surgeryUnknownActiveConstipationUnknownActiveObesityUnknownActive Inactive/Resolved Problems Medical Problem Onset Date Status Comments Leg ulcer, left Unknown Resolved Wound cellulitisUnknownResolvedUlcerUnknownResolvedProblem List clean-up per request of Phys. EHR CmteCellulitisUnknownResolvedUlcer of right legUnknown ResolvedVenous stasis ulcer of right lower extremityUnknownResolved Medications Medication Status Dose Units Route Directions Qty Days St art Date Stop Date End Date Instructions Adherence Cephalexin (Keflex) 500 mg capsule Discontinued 500 MG PO Twice daily 14 October 23, 2017 1:00am October 29, 2017 1:00am October 23, 2017 9:29am Metformin 500 mg cadpchBdaqrtizfdao460TJStkyq [facility] 1:00amJune 2022 8:00amAmlodipine 10 mg txxovoJnsjckamlzic20SIAuxowQrxmv 2017 1:00amJune 2022 7:59amFurosemide 20 mg bquxluVdsrjvhcyoga57HZNadouYmcsu 2017 1:00amJune 2022 7:59amCephalexin (Keflex) 500 mg capsule Bqmxocfqvydu355XVJTIkoqb cehre0757VzhjgOctober 23, 2017 1:00amMarc 2017 1:00am November 02, 2017 12:05amBalsam [place] Oil (Venelex) 87-788 mg/gram ointment Ueyutojqnali3RYARHLCXRZrabg48Iognc 2017 1:00amJanuary 2018 12:14pm apply thin layer to legs dailySodium Hypochlorite (Dakin's Solution) 0.25 % simvbssqDoaoqn2VZRJJKZYXKXVP.3 times dbayhd87430Fydj 29th, 2023 12:00amcleanse lower legs/ulcers as per wound care ordersComplies with drug therapyCephalexin 500 mg xfpgixjVovhazdfwvnv818LSRJWvazs glmge9401Xfmw 2022 12:00amJuly 2022 9:24amCelecoxib 200 mg OzcnajnNauasa948HURSPprecQgld 2022 12:00amUnknownAtorvastatin 40 mg AfhyygTrqilo22UWYHEmrce at bedtimeC[facility]ale 2022 12:00amComplies with drug therapyCarvedilol 12.5 mg PrezktDvlxes63.5MGPO Twice dailyFormerly [facility] 2022 12:00ammust administer with a meal/foodComplies with drug therapyTrazodone 50 mg IncdcuWvoeczpfistz52VIJUSwxpr at bedtimeC[facility]ale 2022 12:00amOctpaintsville [facility] 2024 11:47amIsosorbide Mononitrate 30 mg Tablet Extended Release 24 LpXglspn13SNWWHqefhDolx 2022 12:00amComplies with drug therapySpironolactone 25 mg WzpdfmAqguif72FLWHCrsolCkki 2022 12:00am Complies with drug therapyFerrous Sulfate 325 mg (65 mg iron) MyyuftSublxh435OP PODailyCone Health [facility] Hospitale 2022 12:00amComplies with drug therapyAspirin 81 mg Tablet Ejbcof15IXTUIjdicJpox 2022 12:00amComplies with drug therapyGlipizide 5 mg AiqbswXjadmm6IKVZGvvurThll 2022 12:00amComplies with drug therapy Empagliflozin 10 mg EokneuAvvzlahqwudw59KYWWZktxqFwpv 2022 12:00amOctober 2024 11:47amAmlodipine 5 mg vlzjczTeitzjnpgyqt4SIZDWvszwWhpf 2022 12:00amOctober 2024 11:47amDoxycycline Hyclate 100 mg rljsxyKjxzdqwxwcgn843 MGPOTwice dwgcr8896Chfc 2022 12:00amAugust 2022 9:40am Sulfamethoxazole-Trimethoprim (Bactrim Ds) 800-160 mg rlvgpdDtpwvxsjdwsg1CKWMC Twice yyvqu30Tphsn 2017 1:00amJanuary 2018 12:13pmBlood Sugar Diagnostic (True Metrix Glucose Test Strip) stripActiveSTRIP.ROUTE.QJDFLKOCP28 June 05, 2025 12:00amAs directedFurosemide 40 mg tabletActiveMGPOOctober 2024 12:00amComplies with drug therapyLevofloxacin 250 mg tabletActiveMGPO May 31, 2025 12:00amComplies with drug therapyLinezolid 600 mg tabletActive MGPOOctober 2024 12:00amComplies with drug therapyFolic Acid 1 mg tablet ActivePOOctober 2024 12:00amComplies with drug therapy Cqoniciibby-Evvazlmyc-Bgewawvj (Trelegy Ellipta) 100-62.5-25 mcg blister with deviceActiveINHALATIONOctober 2024 12:00amComplies with drug therapy Procedures Procedure Date Performed Status Blood Culture May 23, 2025 completed US ankle/arm indices May 31, 2025 12:15pm c ompleted Relevant Diagnostic Tests and/or Laboratory Data Laboratory Results Test Collection Date/Time Result Date/Time Result Interpretation Reference Range Result Comment Performing Site B-Type Natriuretic Peptide May 23, 2025 11:00am May 23, 2025 11:00am 1042.0 pg/mL <=1800.0Troponin I High SensitivitySeptember 2024 11:00amSeptember 2024 11:00am5.6 pg/mL4.0-76.1CUT-OFF POINTS HAVE BEEN ESTABLISHED BASED ON THE FOURTHUNIVERSAL DEFINITION OF MYOCARDIAL INFARCTION. THE UPPERREFERENCE LIMIT (URL) OF TROPONIN, DEFINED THE 99THPERCENTILE OF cTnI DISTRIBUTION IN A REFERENCE POPULATION,HAS BEEN CONFIRMED THE DECISION THRESHOLD FOR MIDIAGNOSIS.99TH PERCENTILE = 76.2 PG/MLNOTE: HIGH-SENSITIVITY TROPONIN ASSAY IS NOT INTENDED TO BEUSED IN ISOLATION BUT SHOULD BE INTERPRETED IN CONJUNCTIONWITH OTHER DIAGNOSTIC AND CLINICAL INFORMATION.Anion GapSept2024 11:00am May 23, 2025 11:00am12.6Basophils # (Auto)May 23, 2025 11:00am May 23, 2025 11:00am0.0 10 3/uL0.0-0.1Lactic Acid LevelSept2024 1:23pmSept2024 1:23pm1.4 mmol/L0.4-2.0Urine Other Casts May 23, 2025 6:50pmNONE SEEN #/LPFNONE SEENVitamin B12 LevelOct2024 5:06amOctober 2024 5:24hm922 pg/sQ506-9693Jxdzfsdfs at: [facility] [id number] Director: Rony Clifford PhD, Phone: [phone] SaturationOct2024 5:06amOctober 2024 5:06am 9.6 %FolateOct2024 5:06amOctober 2024 5:06am6.60 ng/mLBelow low normal8.60-58.90FerritinOct2024 5:06amOctober 2024 5:55el429.0 ng/mLAbove high jujvrd66.0-388.0C-Reactive Protein, QuantitativeOct2024 5:06amOctober 2024 5:06am22.07 mg/dLAbove high normal<=0.50Anion Gap May 24, 2025 5:06amOctober 2024 5:06am12.2Basophils # (Auto)May 24, 2025 5:06amOctober , 2024 5:06am0.0 10 3/uL0.0-0.1Anion GapOctober , 2024 5:11amOctober , 2024 5:11am13.7C-Reactive Protein, QuantitativeOct, 2024 5:22amOctober , 2024 5:22am9.12 mg/dLAbove high normal<=0.50Anion GapMay 26, 2024 5:22amOctober , 2024 5:22am13.5HematocritOctober , 2024 5:22amOctober , 2024 5:22am33.2 %Below low lgnqra21.0-54.0Anion Gap May 28, 2025 5:55amOctober , 2024 5:55am13.9Basophils # (Auto)May 28, 2025 5:55amOctober , 2024 5:55am0.0 10 3/uL0.0-0.1BUN/Creatinine Ratio May 23, 2025 11:00amSeptember 2024 11:00am20.4Basophils (%) (Auto) May 23, 2025 11:00amSeptember 2024 11:00am0.3 %0.2-2.0Urine Other CrystalsSeptember 2024 6:50pmNone Seen #/HPFNone SeenIron LevelMay 24, 2025 5:06amOctober , 2024 5:06am15.0 ug/dLBelow low gapjqj88.0-175.0 Albumin/Globulin RatioOct, 2024 5:06amOctober , 2024 5:06am0.4 Basophils (%) (Auto)May 24, 2025 5:06amOctober 2024 5:06am0.3 %0.2-2.0 BUN/Creatinine RatioOctober 2024 5:11amOctober , 2024 5:11am19.3 BUN/Creatinine RatioOctober 2024 5:22amOctober , 2024 5:22am18.4 HemoglobinOctober , 2024 5:22amOctober , 2024 5:22am10.8 g/dLBelow low .0-18.0Albumin/Globulin RatioOctober 2024 5:55amOctober 2024 5:55am0.4Basophils (%) (Auto)May 28, 2025 5:55amOctober , 2024 5:55am0.4 %0.2-2.0Blood Urea NitrogenSept2024 11:00amSeptember 2024 11:00am44.0 mg/dLAbove high normal7.0-18.0Eosinophils # (Auto)May 23, 2025 11:00amSeptember 2024 11:00am0.0 10 3/uL0.0-0.7Urine Bacteria May 23, 2025 6:50pmTRACE #/HPFAbnormal (applies to non-numeric results) NONE SEENTotal Iron Binding CapacityOctober 2024 5:06amOctober 2024 5:79yz734.0 ug/dLBelow low ixrwlw217.0-450.0AlbuminOctober 2024 5:06am May 24, 2025 5:06am2.2 g/dLBelow low normal3.4-5.0Eosinophils # (Auto) May 24, 2025 5:06amOctober 2024 5:06am0.0 10 3/uL0.0-0.7Blood Urea NitrogenOctober 2024 5:11amOctober 2024 5:11am27.0 mg/dLAbove high normal7.0-18.0Blood Urea NitrogenOctober 2024 5:22amOctober 2024 5:22am28.0 mg/dLAbove high normal7.0-18.0Mean Corpuscular HemoglobinOctober 2024 5:22amOctober 2024 5:22am31.0 pg25.9-34.0AlbuminOctober 2024 5:55amOctober 2024 5:55am2.5 g/dLBelow low normal3.4-5.0Eosinophils # (Auto)May 28, 2025 5:55amOctober 2024 5:55am0.1 10 3/uL0.0-0.7Calcium LevelSeptember 2024 11:00amSeptember 2024 11:00am8.1 mg/dLBelow low normal8.5-10.1Eosinophils (%) (Auto)May 23, 2025 11:00amSeptember 2024 11:00am0.0 %Below low normal0.9-7.0Urine BilirubinSeptember 2024 6:50pmNEGATIVENEGATIVEAlkaline PhosphataseOctober 2024 5:06amOctober 2024 5:06am80 U/I95-412Lrgmscaqrak (%) (Auto)May 24, 2025 5:06amOctober 2024 5:06am0.2 %Below low normal0.9-7.0Calcium LevelOctober 2024 5:11amOctober 2024 5:11am8.3 mg/dLBelow low normal8.5-10.1Calcium Level May 26, 2025 5:22amOctober 2024 5:22am8.6 mg/dL8.5-10.1Mean Corpuscular Hemoglobin ConcentOctober 2024 5:22amOctober 2024 5:22am 32.5 g/dL29.9-35.2Alkaline PhosphataseOct2024 5:55amOctober 2024 5:55am64 U/E43-409Gubbrfckmra (%) (Auto)May 28, 2025 5:55amOctober 2024 5:55am1.3 %0.9-7.0Chloride LevelSeptember 2024 11:00amSeptember 2024 11:00am98 mmol/P41-130CzrezrcnznEmozzkzvn 2024 11:00amSeptember 2024 11:00am34.1 %Below low dumnab48.0-54.0Urine Occult BloodSeptember 2024 6:50pmNEGATIVENEGATIVEAlanine Aminotransferase (ALT/SGPT)May 24, 2025 5:06amOctober 2024 5:06am21 U/G59-89IkeopgwidgFwcljsr 2024 5:06am May 24, 2025 5:06am32.6 %Below low ifqxhc84.0-54.0Chloride LevelOctober 2024 5:11amOctober 2024 5:42yu259 mmol/P21-672Scvkywfm LevelOctober 2024 5:22amOctober 2024 5:84zv505 mmol/X56-881Fncd Corpuscular Volume May 26, 2025 5:22amOctober 2024 5:22am95.4 fLAbove high normal 80.0-94.0Alanine Aminotransferase (ALT/SGPT)May 28, 2025 5:55amOctober 2024 5:55am31 U/Z95-51PaeedxclxaTiddukt 2024 5:55amOctober 2024 5:55am 36.9 %Below low ahrtfq17.0-54.0Carbon Dioxide LevelSeptember 2024 11:00am May 23, 2025 11:00am24.7 mmol/L21.0-32.0HemoglobinSeptember 2024 11:00amSeptember 2024 11:00am11.1 g/dLBelow low yzfbij82.0-18.0Urine AppearanceSeptember 2024 6:50pmCLEARCLEARAspartate Amino Transf (AST/SGOT) May 24, 2025 5:06amOctober 2024 5:06am17 U/F32-35PuspsthimjYqxient 2024 5:06amOctober 2024 5:06am10.8 g/dLBelow low unwxic48.0-18.0Carbon Dioxide LevelOctober 2024 5:11amOctober 2024 5:11am21.6 mmol/L 21.0-32.0Carbon Dioxide LevelOctober 2024 5:22amOctober 2024 5:22am 21.4 mmol/L21.0-32.0Mean Platelet VolumeOctober 2024 5:22amOctober 2024 5:22am9.1 fLBelow low normal9.5-13.5Aspartate Amino Transf (AST/SGOT) May 28, 2025 5:55amOctober 2024 5:55am28 U/S74-51RrzosgwyhqWefqifa 5th, 2025 5:55amOctober 2024 5:55am11.7 g/dLBelow low zpdgba33.0-18.0 CreatinineSeptember 2024 11:00amSeptember 2024 11:00am2.16 mg/dL Above high normal0.70-1.30Immature Granulocyte # (Auto)May 23, 2025 11:00amSeptember 2024 11:00am0.11 10 3/uLAbove high normal0.00-0.03Urine ColorSeptember 2024 6:50pmYELLOWYELLOWBUN/Creatinine RatioOctober 2024 5:06amOctober 2024 5:06am23.2Immature Granulocyte # (Auto)May 24, 2025 5:06amOctober 2024 5:06am0.12 10 3/uLAbove high normal0.00-0.03 CreatinineOctober 2024 5:11amOctober 2024 5:11am1.40 mg/dLAbove high normal0.70-1.30CreatinineOctober 2024 5:22amOctober 2024 5:22am1.52 mg/dLAbove high normal0.70-1.30Platelet CountOct2024 5:22amOct2024 5:59xt669 10 3/nJ294-143GJK/Creatinine RatioOctober 2024 5:55am May 28, 2025 5:55am18.6Immature Granulocyte # (Auto)May 28, 2025 5:55amOctober 2024 5:55am0.13 10 3/uLAbove high normal0.00-0.03Estimated GFR ()May 23, 2025 11:00amSeptember 2024 11:00am36 Below low normal>=60 mL/min/1.73m 2Immature Granulocyte % (Auto)May 23, 2025 11:00amSeptember 2024 11:00am0.9 %Above high normal0.0-0.5Urine Glucose (UA)May 23, 2025 6:50pmNEGATIVE mg/dLNEGATIVEBlood Urea Nitrogen May 24, 2025 5:06amOctober 2024 5:06am38.0 mg/dLAbove high normal 7.0-18.0Immature Granulocyte % (Auto)May 24, 2025 5:06amOctober 2024 5:06am0.9 %Above high normal0.0-0.5Estimated GFR ()May 25, 2025 5:11amOctober 2024 5:92vu71Hscdt low normal>=60 mL/min/1.73m 2 Estimated GFR ()May 26, 2025 5:22amOctober 2024 5:22am 54Below low normal>=60 mL/min/1.73m 2Red Blood CountOctober 2024 5:22am May 26, 2025 5:22am3.48 10 6/uLBelow low normal4.70-6.10Blood Urea Nitrogen May 28, 2025 5:55amOctober 2024 5:55am30.0 mg/dLAbove high normal 7.0-18.0Immature Granulocyte % (Auto)May 28, 2025 5:55amOctober 2024 5:55am1.6 %Above high normal0.0-0.5Estimated GFR (Non- AmericanSept2024 11:00amSeptember 2024 11:15ds74Nucvs low normal>=60 mL/min/1.73m 2Lymphocytes # (Auto)May 23, 2025 11:00amSeptember 2024 11:00am0.7 10 3/uLBelow low normal1.2-3.8Urine KetonesSeptember 2024 6:50pmNEGATIVE mg/dLNEGATIVECalcium LevelOctober 2024 5:06amOctober 2024 5:06am8.3 mg/dLBelow low normal8.5-10.1Lymphocytes # (Auto)May 24, 2025 5:06amOctober 5 5:06am1.0 10 3/uLBelow low normal1.2-3.8Estimated GFR (Non- AmericanOctober , 2024 5:11amOctober , 2024 5:57kc53Fcbbc low normal>=60 mL/min/1.73m 2Estimated GFR (Non- AmericanOctober , 2024 5:22amOctober , 2024 5:28ox95Hoqhl low normal>=60 mL/min/1.73m 2Red Cell Distribution WidthOct, 2024 5:22amOctober , 2024 5:22am14.3 % 11.0-15.0Calcium LevelOct2024 5:55amOctober 2024 5:55am8.6 mg/dL 8.5-10.1Lymphocytes # (Auto)May 28, 2025 5:55amOctober 2024 5:55am1.2 10 3/uL1.2-3.8Glucose LevelSeptember 2024 11:00amSeptember 2024 11:04fa508 mg/dLAbove high -201Ocqfqtgmfew (%) (Auto)May 23, 2025 11:00amSeptember 2024 11:00am6.0 %Below low .5-60.0Urine Leukocyte EsteraseSeptember 2024 6:50pmNEGATIVENEGATIVEChloride Level May 24, 2025 5:06amOctober 2024 5:85rq855 mmol/M43-761Vrawswaclvk (%) (Auto)May 24, 2025 5:06amOctober 2024 5:06am6.8 %Below low normal 20.5-60.0Glucose LevelOctober 2024 5:11amOctober 2024 5:63ds944 mg/dL Above high clpyeg28-464Csvhkda LevelOctober 2024 5:22amOctober 2024 5:94gz251 mg/dLAbove high dygylg20-639Jyjnwpxhd White Blood CountOctober 2024 5:22amOctober 2024 5:22am10.5 10 3/uL4.0-11.0Chloride LevelOctober 2024 5:55amOctober 2024 5:46dy394 mmol/J55-571Pymfcylmilb (%) (Auto) May 28, 2025 5:55amOctober 2024 5:55am15.4 %Below low kockah76.5-60.0 Potassium LevelSeptember 2024 11:00amSeptember 2024 11:00am4.3 mmol/L3.5-5.1Mean Corpuscular HemoglobinSeptember 2024 11:00amSeptember 2024 11:00am30.8 pg25.9-34.0Urine MucusSeptember 2024 6:50pmNONE SEENNONE SEENCarbon Dioxide LevelOctober 2024 5:06amOct2024 5:06am23.0 mmol/L21.0-32.0Mean Corpuscular HemoglobinOctober 2024 5:06am May 24, 2025 5:06am30.9 pg25.9-34.0Potassium LevelOctober 2024 5:11am May 25, 2025 5:11am4.3 mmol/L3.5-5.1Potassium LevelOctober 2024 5:22am May 26, 2025 5:22am4.9 mmol/L3.5-5.1Carbon Dioxide LevelOct2024 5:55amOctober 2024 5:55am23.4 mmol/L21.0-32.0Mean Corpuscular Hemoglobin May 28, 2025 5:55amOctober 2024 5:55am30.4 pg25.9-34.0Sodium Level May 23, 2025 11:00amSeptember 2024 11:04mp850 mmol/LBelow low yboopn244-961Dypc Corpuscular Hemoglobin ConcentSeptember 2024 11:00am May 23, 2025 11:00am32.6 g/dL29.9-35.2Urine NitriteSeptember 2024 6:50pmNEGATIVENEGATIVECreatinineOctober 2024 5:06amOctober , 2024 5:06am 1.64 mg/dLAbove high normal0.70-1.30Mean Corpuscular Hemoglobin ConcentOctober , 2024 5:06amOctober , 2024 5:06am33.1 g/dL29.9-35.2Sodium LevelOctober , 2024 5:11amOctober , 2024 5:43ur713 mmol/LBelow low sqakqt047-175Ulukyz LevelOctober , 2024 5:22amOctober , 2024 5:49zl348 mmol/LBelow low normal 136-145CreatinineOctober 2024 5:55amOctober 2024 5:55am1.61 mg/dLAbove high normal0.70-1.30Mean Corpuscular Hemoglobin ConcentOctober 2024 5:55am May 28, 2025 5:55am31.7 g/dL29.9-35.2Mean Corpuscular VolumeSeptember 2024 11:00amSeptember 2024 11:00am94.7 fLAbove high .0-94.0Urine pHSeptember 2024 6:50pm6.05.0-9.0Estimated GFR ()May 24, 2025 5:06amOctober 2024 5:79ae33Vklfp low normal>=60 mL/min/1.73m 2 Mean Corpuscular VolumeOctober 2024 5:06amOctober 2024 5:06am93.1 fL 80.0-94.0Estimated GFR ()May 28, 2025 5:55amOctober 2024 5:07kr29[place] low normal>=60 mL/min/1.73m 2Mean Corpuscular VolumeOctober 2024 5:55amOctober 2024 5:55am95.8 fLAbove high wplrda94.0-94.0 Monocytes # (Auto)May 23, 2025 11:00amSeptember 2024 11:00am0.9 10 3/uLAbove high normal0.3-0.8Urine ProteinSeptember 2024 6:50pmTRACE mg/dL NEG/TRACEEstimated GFR (Non- AmericanOctober , 2024 5:06amOctober , 2024 5:85ia17Vzgvp low normal>=60 mL/min/1.73m 2Monocytes # (Auto)May 24, 2025 5:06amOctober , 2024 5:06am0.9 10 3/uLAbove high normal0.3-0.8Estimated GFR (Non- AmericanOctober , 2024 5:55amOctober , 2024 5:39nb63Spiee low normal>=60 mL/min/1.73m 2Monocytes # (Auto)May 28, 2025 5:55amOctober , 2024 5:55am0.6 10 3/uL0.3-0.8Monocytes (%) (Auto)May 23, 2025 11:00amSeptember 2024 11:00am7.8 %1.7-12.0Urine RBCSeptember 2024 6:19vf2-7 #/HPF0-2GlobulinOctober 2024 5:06amOctober , 2024 5:06am5.6 g/dLMonocytes (%) (Auto)May 24, 2025 5:06amOctober , 2024 5:06am6.8 % 1.7-12.0GlobulinOct2024 5:55amOctober 2024 5:55am5.7 g/dL Monocytes (%) (Auto)May 28, 2025 5:55amOctober 2024 5:55am7.9 % 1.7-12.0Mean Platelet VolumeSeptember 2024 11:00amSeptember 2024 11:00am9.2 fLBelow low normal9.5-13.5Urine Specific GravitySeptember 2024 6:50pm1.0151.005-1.025Glucose LevelOctober 2024 5:06amOctober , 2024 5:38dh310 mg/dLAbove high -117Hhnr Platelet VolumeOctober 2024 5:06amOctober 2024 5:06am9.4 fLBelow low normal9.5-13.5Glucose LevelOct2024 5:55amOctober 2024 5:28zw354 mg/aU31-048Urcv Platelet Volume May 28, 2025 5:55amOctober 2024 5:55am8.9 fLBelow low normal9.5-13.5 Neutrophils # (Auto)May 23, 2025 11:00amSeptember 2024 11:00am9.9 10 3/uLAbove high normal1.4-6.5Urine Squamous Epithelial CellsSeptember 2024 6:50pmRARE #/LPFNONE/RAREPotassium LevelMay 24, 2025 5:06amOctober 2024 5:06am4.2 mmol/L3.5-5.1Neutrophils # (Auto)May 24, 2025 5:06am May 24, 2025 5:06am11.8 10 3/uLAbove high normal1.4-6.5Potassium Level May 28, 2025 5:55amOctober 2024 5:55am4.3 mmol/L3.5-5.1Neutrophils # (Auto)May 28, 2025 5:55amOctober 2024 5:55am5.8 10 3/uL1.4-6.5 Neutrophils (%) (Auto)May 23, 2025 11:00amSeptember 2024 11:00am 85.0 %Above high .0-75.0Urine UrobilinogenSeptember 2024 6:50pm2.0 EU/dLAbnormal (applies to non-numeric results)0.2-1.0Sodium LevelOct2024 5:06amOctober , 2024 5:55vd991 mmol/LBelow low ltertd735-900Ycoxjgkejcb (%) (Auto)May 24, 2025 5:06amOctober 2024 5:06am85.0 %Above high aassdi72.0-75.0Sodium LevelOct2024 5:55amOctober 2024 5:94le931 mmol/M741-854Qfwqkmleeyj (%) (Auto)May 28, 2025 5:55amOctober 2024 5:55am73.4 %43.0-75.0Platelet CountSeptember 2024 11:00amSeptember 2024 11:72mw237 10 3/eO742-543Bjppc WBCSeptember 2024 6:14vz7-7 #/HPF Abnormal (applies to non-numeric results)NONE SEENTotal BilirubinOctober , 2024 5:06amOctober , 2024 5:06am0.9 mg/dL0.2-1.0Platelet CountOctober , 2024 5:06amOctober , 2024 5:21ie240 10 3/kC919-777Thzfy BilirubinOctober 2024 5:55amOctober 2024 5:55am0.5 mg/dL0.2-1.0Platelet CountOctober 2024 5:55amOctober 2024 5:87zn860 10 3/xC182-863Yky Blood CountSept2024 11:00amSeptember 2024 11:00am3.60 10 6/uLBelow low normal 4.70-6.10Total ProteinOctober , 2024 5:06amOctober , 2024 5:06am7.8 g/dL 6.4-8.2Red Blood CountOctober 2024 5:06amOctober , 2024 5:06am3.50 10 6/uLBelow low normal4.70-6.10Total ProteinOctober 2024 5:55amOctober 2024 5:55am8.2 g/dL6.4-8.2Red Blood CountOctober 2024 5:55amOctober 2024 5:55am3.85 10 6/uLBelow low normal4.70-6.10Red Cell Distribution Width May 23, 2025 11:00amSeptember 2024 11:00am14.2 %11.0-15.0Red Cell Distribution WidthOct2024 5:06amOctober 2024 5:06am14.2 % 11.0-15.0Red Cell Distribution WidthOct2024 5:55amOctober 2024 5:55am14.1 %11.0-15.0Corrected White Blood CountSept2024 11:00am May 23, 2025 11:00am11.6 10 3/uLAbove high normal4.0-11.0Corrected White Blood CountOctober 2024 5:06amOctober 2024 5:06am13.9 10 3/uLAbove high normal4.0-11.0Corrected White Blood CountOctober 2024 5:55amOctober 2024 5:55am7.9 10 3/uL4.0-11.0 Microbiology Results Procedure Source Result Collection Date/Time Result Date/Time Result Comment Performing Site Blood Culture Blood, Left Antecubital Bacillus sp not B. anthracis May 23, 2025 1:37pm May 27, 2025 8:08am [facility] [place] [id number] [address] [place] [address] Diagnostic Imaging Reports Author Biju Monroe [facility] HospitalAuthoredOctober 2024 1:57pmReportDictated Date/TimeDictated ByStatusRadiology ReportOctober 2024 1:57pmDeanne SadlerSelect Medical [facility] [address] [place] [address] Ultrasound Report Signed Patient: Shan Young MR#: [id number] : 1945 Acct:[id number] Age/Sex: 80 / M ADM Date: 5 Loc: [facility] Room: Type: [facility] Attending Dr: Biju Monroe MD Ordering Provider: Biju Monroe MD Date of Service: 05/31/25 US/US ankle/arm indices: I73.9 - Peripheral vascular disease, unspecified Copies to: Biju Monroe MD~ LOWER EXTREMITY SEGMENTAL ARTERIAL DOPSCAN (PVR) INDICATION: Bilateral lower extremity venous ulcerations. PROCEDURE: Right arm blood pressure is 138 , left is 134 . Pressures at the right ankle are 158 using the posterior tibial artery, and 157 using the dorsalis pedis artery with ankle-brachial index of 1.14 1.14 . Pressures at the left ankle are 147 using the posterior tibial artery, and 150 with ankle-brachial index of 1.07 1.09 . Wave forms by plethysmography are normal. US/US ankle/arm indices IMPRESSION: NO HEMODYNAMICALLY SIGNIFICANT PERIPHERAL VASCULAR OCCLUSIVE DISEASE AT REST IN EITHER LOWER EXTREMITY. Impression dictated by: Biju Monroe MD,FACS,FSVS 05/31/2025 1:58 PM Dictation Location: [place] [address] Tech: Swetha Vincent Transcribed By: PWS 05/31/25 1358 Dictated By: Biju Monroe MD 05/31/25 1357 Signed By: <Electronically signed by Biju Monroe MD in [place]> 05/31/25 1358 Vital Signs Vital Reading Result Reference Range Collection Date/Time Height 70 [in_i] May 31, 2025 11:26ygTrxkrp827.14 kgOctober 2024 11:52amBody Mooozuzbhky84.4 [degF]97.6-99.0May 31, 2025 11:52amHeart Rate66 /tqg94-267 May 31, 2025 11:52amOxygen saturation by Pulse fodjblep89 %95-100May 31, 2025 11:52amBP Tgxeyafl525 mm[Hg]100-140May 31, 2025 11:52amBP Yxhlqjyfa02 mm[Hg]60-100Oct2024 11:52amBMI (Body Mass Index)45.9 kg/m2 May 31, 2025 11:98faHkulva69 [in_i]June 05, 2025 10:32zpXqlyel929.90 kgOctober 2024 10:05amBody Vmredkafiaz86.5 [degF]97.6-99.0June 05, 2025 10:05amHeart Rate74 /qyh31-303AggmgojJune 05, 2025 10:05amRespiratory rate22 /qba03-78XnfdnqmJune 05, 2025 10:05amOxygen saturation by Pulse xkidhbbi42 %95-100 June 05, 2025 10:05amBP Dpemlrro43 mm[Hg]100-140June 05, 2025 10:05am BP Tvltcvcmx56 mm[Hg]60-100October 2024 10:05amBMI (Body Mass Index)45.5 kg/b3Qjzpvge 2024 10:05am Advance Directives Advance Directive Response Recorded Date/ Time Advance Directives No October 22 12:42pm Insurance Providers Guarantor Leonel Leber Address [address] [place] [id number] Info.Home Phone: Payer Policy Id Subscriber's Name Subscriber Id Effectiv e Date Expiration Date Medicare [id number] Shan Young [id number] MMO MCR Adv [id number] A [id number] [facility] [id number] A [id number] Health Plans [facility] [id number] Lloyd [id number] Encounters Encounter Location(s) Arrival/Admit Date Discharge/Depart Date Provider(s) Non-patient / Non-visit -[facility] May 23, 2025 11:00am Yenny Cervantes [facility]24 1:38pmFatoumata Hampton-patient / [facility]- [facility] 2024 5:06amFatoumata Hampton-patient / Vgi-oqrph-[facility] 2024 5:11amRFatoumata Erickson-patient / Skt-rhsmt-[facility] 2024 5:22am Fatoumata Hampton-patient / Bmz-rmljh-Aexuj [facility] 2024 5:55amFidencio Diggsartfeli Physician/Provider [facility] 2024 10:30amOctober 2024 12:47pmJenny Sadlerartfeli Clinical-Ultras[facility] May 31, 2025 12:14pmOctober 2024 12:15pmBiju Monroe MD Departed Physician/Provider Office Visit-[facility] 2024 9:43amOctober 2024 10:33amELFEGO Elizalde Recent Diagnosis Onset Date Admit Date Venous stasis of both lower extremities Unknown May 31, 2025 10:30am Diastolic dysfunction with chronic heart failure Unknown June 05, 2025 9:43am Morbid obesity due to excess calories Unknown June 05, 2025 9:43am Type 2 diabetes mellitus, wi thout long-term current use of insulin Unknown June 05, 2025 9:43am Nicotine dependence Unknown May 9:43am Wound cellulitis Unknown June 05, 9:43am Assessments Diagnosis Onset Date Resolution Status Admit Date Venous stasis of both lower extremities chronicOctober 2024 10:30amDiastolic dysfunction with chronic heart failure acuteOctober 2024 9:43amMorbid obesity due to excess caloriesacuteOctober 2024 9:43amType 2 diabetes mellitus, without long-term current use of insulinacuteOctober 2024 9:43amNicotine dependencechronicOctober 2024 9:43amWound cellulitisresolvedOctober 2024 9:43am Plan of Treatment Author Teressa Sierra [facility] 2024 8:33amCheck blood sugars daily, notify the office if <70 or > 200. Take medications (pills or insulin) as directed. Monitor for s/s of low blood sugar (sweaty, dizziness, nausea, vomiting, or shakiness). Watch for increase thirst, urination, and appetite as these can be signs of high blood sugar. Inspect your feet frequently monitor for open wounds, wear proper fitting shoes as well. Pt should attempt to remain as physical active as chronic conditions allow, as well as trying to follow a diet lower in carbohydrates, and simple sugars. current meds: asa, statin, glipizide limit sodium, daily weights, notify cardiology if more than 3 pound weight gain in 24 hours [facility] cardiology current meds: b fitz, aldactone, Discussed with patient their BMI (actual vs recommended). We have discussed lifestyle modifications: attempts to perform phsyical activity as chronic conditions allow, monitor dietary intake: increasing protein/fruits/veggies and lowering carb intake (unless contraindicated). Limit sodas, juices, sugary drinks, as well as alcohol consumption. The patient has been advised of the risks of continued smoking: stroke, [place], all forms of cancer, lung disease, and . Options for quitting: cold turkey, hypnosis, acupuncture, nicotine replacement meds (gum, lozenges, and patches), as well as oral meds: buproprion or varenicline . At this time pt is encouraged to evaluate their goals for wanting to quit smoking, and reach out to provider when ready to start this process Author Biju [facility] HospitalAuthoredOct2024 12:47pmI did review some arterial studies in this patient today. They are normal. This patient has excellent blood supply to his feet and the legs. We will also order a full functional venous duplex to rule out any valvular incompetence which may be contributing to his lower extremity symptoms. I have encouraged him to lose weight and exercise. Will see him back in the future to go over these venous study results. The meantime I did refer him back to the wound care center. Future Tests Future scheduled test information is unavailable Pending Tests Test Name Ordered Date Scheduled Date US venous duplex LE BI May 31, 2025 12:44pm Future Visits Future appointment information is unavailable Referrals to Other Providers Referral information is unavailable Future Procedures Procedure Name Ordered Date Scheduled Date Basic Metabolic Panel June 05, 2025 10:31am Future Medications Future medication information is unavailable Patient Instructions Patient instructions are unavailable
--- OUTSIDE RECORDS SUMMARY | 2025-06-13 10:31 | XMS_ITS | Clinical Summary ---
Author Organization [facility] Address [address] [place] [address] Care Team Providers Care Account Analyst Name Role Phone House Sr., Mal LIU Primary Care Provider + Allergies No known active allergies Medications MedicationSigDispense QuantityRefillsLast FilledStart DateEnd DateStatus amLODIPine (NORVASC) 10 mg tablet Take 10 mg by mouth once daily.Active furosemide (LASIX) 40 mg tablet Take 40 mg by mouth once daily.Active metFORMIN (GLUCOPHAGE) 500 mg tablet Take 500 mg by mouth twice daily.Active NAPROXEN SODIUM (ALEVE ORAL) Take by mouth.Active traZODone (DESYREL) 50 mg tablet Take 50 mg by mouth daily at bedtime.Active Active Problems ProblemNoted DateDiagnosed DateMetabolic oeilxgmi91/27/2012MGUS (monoclonal gammopathy of unknown significance)08/19/20124462Jyktoblcpnkmz08/27/2012Peripheral vascular lnayiqe5408/19/2012 Social History Tobacco UseTypesPacks/DayYears UsedDateSmoking Tobacco: Every KszTlzfjxitgs104 Smokeless Tobacco: NeverAlcohol UseStandard Drinks/WeekCommentsYes0 (1 standard drink = 0.6 oz pure alcohol)PHQ-2AnswerDate RecordedPHQ-2 vkkgd353Area Deprivation IndexAnswerDate RecordedNational Score (1-100), lower number is lower riskNot on file08/01/2020State Score (1-10), lower number is lower riskNot on file08/01/2020Data from: https://www.neighborhoodatlas.medicine.[facility].edu/. Last address used for calculationNot on file08/01/2020Sex and Gender Information ValueDate RecordedSex Assigned at BirthNot on fileLegal TldNhaf72/02/2012 10:16 AM ESTGender IdentityNot on fileSexual OrientationNot on file Last Filed Vital Signs Vital SignReadingTime TakenCommentsBlood Akwgywhn379/8008 1:38 PM EDT Mqhwl805004/12/2020 1:38 PM ROHTovllqtutmj47.3 ??C (97.4 ??F)04/12/2020 1:38 PM EDTRespiratory Xfij8674 1:38 PM EDTOxygen Socrpevnmc01%04/12/2020 1:38 PM EDTInhaled Oxygen Concentration--Mgvekk835 kg (295 lb 6.4 oz)04/12/2020 1:38 PM CFGKwoqgg720.1 cm (5' 10.51 )04/12/2020 1:38 PM EDTBody Mass Index41.77 04/12/2020 1:38 PM EDT Plan of Treatment DateTypeDepartmentCare Team (Latest Contact Info)Laaypritcue84/23/2025 10:15 AM EDTProcedure Pulmonary Lab [address] [place] [address] Linked-AP1 10:45 AM EDTProcedure Pulmonary Lab [address] [place] [address] COPD06/15/2025 11:00 AM EDTOffice Visit Pulmonary Medicine [address] [place] [address] Santhosh Quintana MD [address] [place] [address] COPD06/15/2025 1:00 PM EDTOffice Visit OPHT Ophthalmology [address] [place] [address] Anya Thompson MD [address] [place] [address] [facility] [address] [place] [address] CAT EVAL (referral scanned)Health MaintenanceDue DateLast DoneCommentsAnxiety Uwhuwluwp07/18/1962Depression Cilfrntka67/18/1962DTaP,Tdap,Td Vaccine (1 - Tdap) 1963Pneumococcal Vaccine: 50+ (1 of 1 - PCV)1994Shingrix Vaccine (1 of 2)1994RSV Vaccine (1 - 1-dose 75+ series)2019Advance Directive Kcowpsaoyg83/01/2025Diabetes Cprxqkfcq04/11/820688/06/2022, 09/02/2021, 09/01/2021, Additional history existsCovid-19 Vaccine (1 - 2024- season) 2025Influenza Vaccine (#1)2025 Procedures Procedure NamePriorityDate/TimeAssociated DiagnosisCommentsCOMPREHENSIVE METABOLIC KIDWSWbtxajs19/12/2020 1:36 PM EDT MGUS (monoclonal gammopathy of unknown significance) from Last 3 Months or Most Recently Relevant to Health Maintenance Results * (ABNORMAL) COMP METABOLIC PANEL (04/04/2020 1:36 PM EDT)ComponentValueRef RangeTest MethodAnalysis TimePerformed AtPathologist SignatureProtein, Total 8.7(H)6.3 - 8.0 g/dL04/04/2020 2:27 PM EDTCMiddletown Hospital Cancer CareAlbumin4.33.9 - 4.9 g/dL04/04/2020 2:27 PM EDTCMiddletown Hospital Cancer CareCalcium9.28.5 - 10.2 mg/dL04/04/2020 2:27 PM EDTCMiddletown Hospital Cancer CareBilirubin, Total1.20.2 - 1.3 mg/dL04/04/2020 2:27 PM EDTCMiddletown Hospital Cancer CareAlkaline Vhohlzbhzcn3142 - 113 U/L 04/04/2020 2:27 PM EDTCMiddletown Hospital Cancer SfgtFIH0871 - 40 U/L 04/04/2020 2:27 PM EDTCMiddletown Hospital Cancer EvxoJgjxjjz254(H)74 - 99 mg/dL04/04/2020 2:27 PM EDTCMiddletown Hospital Cancer Care Comment: The [place] [employer] Association (ADA) provides guidance for cutoff [...] Standards of Medical Care in Diabetes 2016, [place] [employer]. Diabetes Care. 2016.39(Suppl 1). BVM930 - 24 mg/dL04/04/2020 2:27 PM [facility] Creatinine0.760.73 - 1.22 mg/dL04/04/2020 2:27 PM [facility] HtfrAvfvyx030(L)136 - 144 mmol/L04/04/2020 2:27 PM [facility] CarePotassium3.73.7 - 5.1 mmol/L04/04/2020 2:27 PM EDT [facility] UinaZywupvmc33(L)97 - 105 mmol/L04/04/2020 2:27 PM [facility] GnooBS37826 - 30 mmol/L04/04/2020 2:27 PM [facility] CareAnion Gap8(L)9 - 18 mmol/L 04/04/2020 2:27 PM [facility] NqdfMTS2130 - 54 U/L 04/04/2020 2:27 PM [facility] CareeGFR->6008 2:27 PM [facility] CareeGFR- All Other Races>60.04/04/2020 2:27 PM [facility] CareComment: eGFR (Estimated GFR) Units of measure: mL/min/1.73 [...] eGFR may not accurately reflect actual GFR. Specimen (Source)Anatomical Location / LateralityCollection Method / Volume Collection TimeReceived TimeBlood specimen (specimen)BLOOD SPECIMEN / Unknown 04/04/2020 1:36 PM EDT04/04/2020 1:52 PM EDT Narrative Authorizing ProviderResult TypeResult StatusWillie Sotelo MDLABORATORYFinal ResultPerforming OrganizationAddressCity/State/ZIP CodePhone Number [facility] [address] [place] [address] [facility] [address], [place] from Last 3 Months or Most Recently Relevant to Health Maintenance Insurance Care Teams Team MemberRelationshipSpecialtyStart DateEnd Date Mal Perez Sr., PCP - GeneralFamily Medicine04/02/12
--- OUTSIDE RECORDS SUMMARY | 2025-06-13 10:31 | XMS_ITS | Clinical Summary ---
Author Organization [facility] Address [address] [place] [address] Care Team Providers Care Child Care Name Role Phone Teressa Sierra MD Primary Care Provider [phone] Allergies No known active allergies Medications MedicationSigDispense QuantityRefillsLast FilledStart DateEnd DateStatus ferrous sulfate 325 (65 Fe) MG tablet Take 1 tablet by mouth in the morning.Active celecoxib (CeleBREX) 200 mg capsule Take 200 mg by mouth in the morning.Active carvedilol (Coreg) 12.5 mg tablet Indications:Coronary artery disease due to lipid rich plaqueTake 1 tablet (12.5 mg) by mouth in the morning and at bedtime. 180 tablet ctive aspirin 81 mg chewable tablet Chew 81 mg in the morning.Active spironolactone (Aldactone) 25 mg tablet Indications:Coronary artery disease due to lipid rich plaqueTake 0.5 tablets (12.5 mg) by mouth in the morning. 90 tablet ctive Trelegy Ellipta 100-62.5-25 mcg blister with device 06/22/2023ctive Ozempic 0.25 mg or 0.5 mg (2 mg/3 mL) pen injector Active atorvastatin (Lipitor) 40 mg tablet Indications:Coronary artery disease due to lipid rich plaqueTake 1 tablet (40 mg) by mouth at bedtime. 90 tablet ctive furosemide (Lasix) 40 mg tablet Indications:Chronic diastolic heart failure (CMS/HCC),Edema of lower extremity Take 1 tablet (40 mg) by mouth in the morning. 90 tablet ctive Additional Information Patient taking differently:40 mg oral2 times daily, Reported on 01/23/2025 glipiZIDE (Glucotrol) 5 mg tablet Take 5 mg by mouth before breakfast and before evening meal.12/19/2024tive isosorbide mononitrate ER (Imdur) 30 mg 24 hr tablet Indications: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 with other form of angina pectorisTAKE 1 TABLET BY MOUTH ONCE DAILY DO NOT CRUSH OR CHEW 90 tablet tive isosorbide mononitrate ER (Imdur) 30 mg 24 hr tablet Indications: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 with other form of angina pectorisTake 1 tablet (30 mg) by mouth once daily as directed. Do not crush or chew. 90 tablet Discontinued Active Problems ProblemNoted DateDiagnosed DateType 2 diabetes mellitus with diabetic chronic kidney ldfymsj4609/05/2024Type 2 diabetes mellitus with diabetic peripheral angiopathy without hilwkrqi68/13/2025ortic ectasia, unspecified site03/14/2024 Body mass index (BMI) 45.0-49.9, adult03/14/2024hronic kidney disease, stage 3a 03/14/2024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 (CODE)03/14/2024Long term (current) use of inhaled mxronsff55/17/2024 Xcbzetiqanqvopzpw77LymphedemaLymphorrhea Wound sdgmofohup73rthritis of right hip Encounter for subsequent annual wellness visit (AWV) in Medicare drteckf14 Overview (12/17/2023): Last Assessment & Plan: Reviewed Ht/Wt/BMI Recommend eye exam yearly Recommend dental exams twice a year Balance work/leisure activities Exercises is recommended most days of the week (appropriate as chronic conditions allow) Follow up yearly and prn Hand out on living will and health care POA given Nicotine atuycvzbyn60apillomatosisVenous stasis ulcer of right lower fjavgzwbz39Ulcer of lower exggrkdtu08/22/2024Morbid zerqhyn26ilateral lower extremity edema Overview (12/17/2023): Last Assessment & Plan: Continue spironolactone script Jvuyrymgtlql01OPD (chronic obstructive pulmonary disease) Overview (12/17/2023): Last Assessment & Plan: Continue with dr woodruff Hearing rikxxhdcx721125Ssqgdtiqwbtuvmyvnvwp75/16/202404/25/2024 Iron hjpzmjogna20Myocardial otomuzgbeh55 Osteoarthritis of both kneesSleep apnea Overview (12/17/2023): Last Assessment & Plan: Follow with [facility] Sleep [facility] Dr Amado, no machine use for last 6 months, it is not working and he is waiting for a new machine Diabetes mellitus, type II09/08/2023 Overview (03/09/2024): Last Assessment & Plan: Check [...] it Fu in 3 months Solitary pulmonary lliqba703Pneumonia, zeauxvymc60/23/2023 Chronic diastolic congestive heart axgsvdb2207/14/2022OVID-19008/29/2021 Pericardial /06/2022Multiple vessel coronary artery ykbdtmb1707/03/2021 Cough07/03/20219656Chhlg53/10/2021Hypertensive twyabrqh37/10/2021History of coronary artery bypass mpxxpby4607/03/2021Nonsustained ventricular atpuvkrrszx81/10/2021 Wound of sternal ooggms0007/03/2021yncope and /28/2021Hyperglycemia 08/19/2012Metabolic nzzmpdin05/27/2012MGUS (monoclonal gammopathy of unknown significance)08/19/2012 Encounters DateTypeDepartmentCare UvetTqocmzvoinb08/20/2025RefThe [facility] [place] [address] [place] [address] Marianne Hernandez CNP 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 with other form of angina pectorisfrom Last 3 Months Immunizations ImmunizationAdministration DatesNext DueUnspecified Sars-Cov-2 Vaccination 10/30/2020,10/01/2020 Family History Medical HistoryRelationNameCommentsCoronary artery diseaseMotherRelationName StatusCommentsFatherDeceasedMotherDeceased Social History Tobacco UseTypesPacks/DayYears UsedDateSmoking Tobacco: FormerCigarettes Smokeless Tobacco: Never Tobacco Cessation:Counseling Given: Not Answered Alcohol UseStandard Drinks/WeekCommentsYes0 (1 standard drink = 0.6 oz pure alcohol)moderateUT Safety & EnvironmentAnswerDate RecordedFear of Current or Ex-PartnerNot on file10/15/2023Emotionally AbusedNot on file10/15/2023hysically AbusedNot on file10/15/2023Sexually AbusedNot on file10/15/2023hysically or Sexually AbusedNot on file10/15/2023Sex and Gender InformationValueDate Recorded Sex Assigned at BirthNot on fileLegal IvbMuhu3002/20/2022 12:36 AM EDTGender IdentityNot on fileSexual OrientationNot on file Last Filed Vital Signs Vital SignReadingTime TakenCommentsBlood Gkiyyluw900/8206 1:05 PM EDT Eljaf475601/23/2025 1:05 PM BQMAmaznkkyduo64.5 ??C (97.7 ??F)08/14/2021 10:17 AM ESTRespiratory Pfzc105203/09/2024 1:14 PM EDTOxygen Ujcnnjrgtl51%01/23/2025 1:05 PM EDTInhaled Oxygen Concentration--Ywliyu862 kg (325 lb)01/23/2025 1:05 PM EDT Pwxrqr210.8 cm (5' 10 )01/23/2025 1:05 PM EDTBody Mass Index46.6306 1:05 PM EDT Plan of Treatment Health MaintenanceDue DateLast DoneCommentsMedicare Annual Wellness (AWV) 4Diabetes: Retinopathy Hmlcadbmi63/18/1954Depression Screening 1956Pneumococcal Vaccine: 50+ Years (1 of 2 - PCV)1963Adult Tetanus 1966Zoster Vaccines (1 of 2)1994Fall Risk Ddkohmokz89/18/2009 Diabetes: Hemoglobin A1C108/1COVID-19 Vaccine ( season)503/04/2021, 10/01/2020Influenza Vaccine (#1)2025HIB VaccinesAged OutNo longer eligible based on patient's age to complete this topic HPV VaccinesAged OutNo longer eligible based on patient's age to complete this topicIPV VaccinesAged OutNo longer eligible based on patient's age to complete this topicMeningococcal B VaccineAged OutNo longer eligible based on patient's age to complete this topicMeningococcal VaccineAged OutNo longer eligible based on patient's age to complete this topicRotavirus VaccinesAged OutNo longer eligible based on patient's age to complete this topic Procedures Procedure NamePriorityDate/TimeAssociated DiagnosisCommentsHEMOGLOBIN Q5HDofvg 04/04/2021 5:35 AM EDT from Last 3 Months or Most Recently Relevant to Health Maintenance Results * Hemoglobin A1c (04/04/2021 5:35 AM EDT)ComponentValueRef RangeTest Method Analysis TimePerformed AtPathologist SignatureHemoglobin A1C5.44.0 - 6.0 %LAB CONVERSIONSEstimated Average Bkldnpj987oklc/LLAB CONVERSIONSSpecimen (Source) Anatomical Location / LateralityCollection Method / VolumeCollection Time Received Time04/04/2021 5:35 AM EDT04/04/2021 6:14 AM EDT Narrative LAB CONVERSIONS - 04/04/2021 8:56 AM EDT No: Do not add to previous draw Authorizing ProviderResult TypeResult StatusSaqikendra MARRERO BLOOD ORDERABLES Final ResultPerforming OrganizationAddressCity/State/ZIP CodePhone Number LAB CONVERSIONS from Last 3 Months or Most Recently Relevant to Health Maintenance Insurance Care Teams Team MemberRelationshipSpecialtyStart DateEnd Date Teressa Sierra MD [facility] [place] [address] PCP - GeneralNurse Practitioner12/17/23
--- OUTSIDE RECORDS SUMMARY | 2025-06-13 10:31 | XMS_ITS | Clinical Summary ---
Author Organization [facility] Address [address] [place] [address], [address] [place] [address] Care Team Providers Care Workers Compensation Claims Analyst Name Role Phone Unavailable Primary Care Provider Unavailabl e Social History Tobacco UseTypesPacks/DayYears UsedDateSmoking Tobacco: Never AssessedSex and Gender InformationValueDate RecordedSex Assigned at BirthNot on fileLegal Sex Male05/14/2021 7:40 PM EDTGender IdentityNot on fileSexual OrientationNot on file Plan of Treatment Not on file Insurance * Guarantor: Rosalie Young TypeRelation to PatientDate of BirthPhone Billing AddressPersonal/ZsrcgcKzvh[address] [address]
--- OUTSIDE RECORDS SUMMARY | 2025-06-13 10:32 | XMS_ITS | CCD ---
Author Organization [facility] CliniSytx Care Team Providers Care Nursing Associate Name Role Phone MAL BARNES Primary Care Unavailable PAYROBIN Referring Unavailable MASROOR, GUDELIA Admitting Unavailable MASROOR, GUDELIA Attending Unavailable AKANKSHA UP Surgeon Unavailable [place] Procedure Practitioner Unavailab le [place] Procedure Practitioner Unavailab le MASROOR, GUDELIA Surgeon [...] Unavailable MOLLY, DR MENEZES Primary Care Unavailable SPRINGER, DR JOHANA Alvarado Consulting Unavailable MOUKARBEL, DR DOMINIQUE Consulting Unavailable MOUKARBEL, DR DOMINIQUE Admitting Unavailable MARTIN, DR DOMINIQUE Attending Unavailable MOLLY, DR MENEZES Primary Care Unavailable MARTIN, DR DOMINIQUE Consulting Unavailable Mal Barnes MD Unavailable Kath TRAVIS, Gilberto Unavailable Teressa Sierra NP Unavailable Gilberto Stockton MD Primary Care Provider Kath TRAVIS, Gilberto Unavailable Kath TRAVSI, Gilberto Unavailable CATINA HEARN Attending Unavailable CATINA HEARN Attending Unavailable ARIELLA GALLEGO Attending Unavailable Mal Barnes MD Unavailable [phone] AICTERESSA MANCIA Attending Unavailable SAMANTHAHTERESSA GEE Attending Unavailable TERESSA SIERRA Attending Unavailable ТАТЬЯНА DANGELO Attending Unavailable SAMANTHAHTERESSA GEE Referring Unavailable ADARSH MALIK Attending Unavailable TERESSA SIERRA Attending Unavailable Jefry Hardin DO Attending Provider King Araogn MD Attending Provider Aries Perez DO Attending Provider Mariela ARTIST SCIENTIFIC-CTeressa Primary Care Provider [phone] Biju Monroe MD Attending Provider Mariela ARTIST SCIENTIFIC-CTeressa Attending Provider King Aragon Attending Unavailable King Aragon Admitting Unavailable Teressa Sierra Primary Care Unavailable Biju Monroe Attending UnavailBiju Sam Admitting Unavailsanford brown Medications Current Medications MedicationDrug Class(es)DatesSig (Normalized)Sig (Original)[id number] 200 actuat albuterol 0.09 mg/actuat metered dose inhaler (20 sources)beta2-Adrenergic Agonisttake 2 puff(s) by inhalation every six hours for wheezingalbuterol HFA 90 mcg/act inhaler Inhale 2 puffs every 6 (six) hours if needed for shortness of breath or wheezing Activeaspirin 81 mg oral tablet (20 sources)Platelet Aggregation Inhibitor, Nonsteroidal Anti-inflammatory Drug Start: 36-31-2441gwwt 1 tablet by mouth once dailyAspirin 81 mg Tablet Active 81 MG PO Daily February 19, 2023 12:00am Complies with drug therapyASPIRIN 81 MG chewable tablet Chew 81 mg in the morning. Activeatorvastatin 40 mg oral tablet (20 sources)HMG-CoA Reductase InhibitorStart: 02-19-2023 End: 32-96-6484ougf 1 tablet by mouth once daily at bedtimeAtorvastatin 40 mg Tablet Active 40 MG PO Daily at bedtime February 19, 2023 12:00am Complies with drug therapyBlood Glucose Monitoring Suppl (True Metrix Air Glucose Meter) w/Device kit (20 sources)Blood Glucose Monitoring Suppl (True Metrix Air Glucose Meter) w/Device kit 1 each Daily ActiveBlood Glucose Monitoring Suppl (True Metrix Go Glucose Meter) w/Device kit (20 sources)Blood Glucose Monitoring Suppl (True Metrix Go Glucose Meter) w/Device kit Activecarvedilol 12.5 mg oral tablet (20 sources)alpha-Adrenergic Fitz, beta-Adrenergic BlockerStart: 02-19-2023 End: 69-26-6187egol 1 tablet by mouth twice daily at mealtimeCarvedilol 12.5 mg Tablet Active 12.5 MG PO Twice daily February 19, 2023 12:00am must administer with a meal/food Complies with drug therapycelecoxib 200 mg oral capsule (20 sources)Nonsteroidal Anti-inflammatory DrugStart: 02-19-2023 End: 57-29-9879pqmr 1 capsule by mouth once dailycephalexin 500 mg oral capsule (15 sources)Cephalosporin AntibacterialStart: 09-20-2024 End: 81-00-1571xfsi 1 capsule by mouth in the morningcephalexin (Keflex) 500 MG capsule Take 500 mg by mouth in the morning and 500 mg before bedtime. 09/29/2024 ActiveStart: 02-19-2023 End: 66-26-4395ofsd 1 capsule by mouth twice dailyCephalexin 500 mg capsule Discontinued 500 MG PO Twice daily 28 14 February 19, 2023 12:00am March 18, 2023 9:24amStart: 10-23-2017 End: 83-18-0401khso 1 capsule by mouth twice dailyCephalexin (Keflex) 500 mg capsule Discontinued 500 MG PO Twice daily 14 7 October 23, 2017 1:00am October 29, 2017 1:00am October 23, 2017 9:29amferrous sulfate 325 mg oral tablet (20 sources)Start: 02-19-2023 End: 12-42-7631aolb 1 tablet by mouth once dailyFerrous Sulfate 325 mg (65 mg iron) Tablet Active 325 MG PO Daily February 19, 2023 12:00am Complies with drug bewnrqcYoeqkukxpzk-Batmwoora-Kwusyxba (20 sources)Anticholinergic, Corticosteroid, beta2-Adrenergic AgonistStart: 43-61-2455Ydukzbvzzjo-Umeclidin-Vilanter (Trelegy Ellipta) 100-62.5-25 mcg blister with device Active INHALATION May 31, 2025 12:00am Complies with drug therapyStart: 90-00-3923Kwurr: 12-24-2023 End: 46-59-9321tsem 1 puff(s) by mouth once rlibbUdvneizzlsk-Uscjavqgh-Ulajap (Trelegy Ellipta) 100-62.5-25 MCG/ACT aerosol powder Indications: Chronic obstructive pulmonary disease, unspecified COPD type (HCC) 1 puff by Other route Daily Rinse mouth after use 60 each 3 03/21/2025 04/20/2025 Activefolic acid 1 mg oral tablet (3 sources)Start: 60-76-2074Imlsa Acid 1 mg tablet Active PO May 31, 2025 12:00am Complies with drug therapyfurosemide 40 mg oral tablet (20 sources)Loop DiureticStart: 97-75-9456Wkpakbfrle 40 mg tablet Active MG PO May 31, 2025 12:00am Complies with drug therapyStart: 31-06-0519osqd 1 tablet by mouth once dailyfurosemide (Lasix) 40 MG tablet Take 40 mg by mouth Daily 10/03/2024 ActiveStart: 10-23-2017 End: 67-17-2662Ymnvjdzqgr 20 mg tablet Discontinued 40 MG Daily October 23, 2017 1:00am February 19, 2023 7:59amtake 1 tablet by mouth every twenty-four hours Furosemide 40 MG 1 tablet Orally Once a day ActiveglipiZIDE 5 mg oral tablet (20 sources)SulfonylureaStart: 03-15-2025 End: 85-42-9520peoa 0.5 tablet by mouth once dailyglipiZIDE (Glucotrol) 5 MG tablet Indications: Type 2 diabetes mellitus without complication, without long- term current use of insulin ([facility]) Take 0.5 tablets (2.5 mg) by mouth Daily 45 tablet 1 03/15/2025 06/13/2025 ActiveStart: 03-25-2024 End: 84-47-9590oing 0.5 tablet by mouth once dailyglipiZIDE (Glucotrol) 5 MG tablet Indications: Type 2 diabetes mellitus without complication, without long- term current use of insulin ([facility]) Take 0.5 tablets (2.5 mg) by mouth Daily 45 tablet 1 09/08/2024 ActiveStart: 84-30-1173huzz 1 tablet by mouth once daily Glipizide 5 mg Tablet Active 5 MG PO Daily February 19, 2023 12:00am Complies with drug therapysodium hypochlorite 2.5 mg/ml topical solution (4 sources)Start: 66-99-6955Boaugh Hypochlorite (Dakin's Solution) 0.25 % solution Active 1 APPLIC TOPICAL .3 times weekly 473 February 19, 2023 12:00am cleanse lower legs/ulcers as per wound care orders Complies with drug gjyfvdm55 hr isosorbide mononitrate 30 mg extended release oral tablet (20 sources)Nitrate VasodilatorStart: 31-84-9848paxe 1 tablet by mouth once daily, then take 1 tablet by mouth every twenty-four hoursIsosorbide Mononitrate 30 mg Tablet Extended Release 24 Hr Active 30 MG PO Daily February 19, 2023 12: 00am Complies with drug therapylevoFLOXacin 250 mg oral tablet (3 sources)Quinolone AntimicrobialStart: 65-26-4285Tomrcumknkop 250 mg tablet Active MG PO May 31, 2025 12:00am Complies with drug therapylinezolid 600 mg oral tablet (3 sources)Oxazolidinone AntibacterialStart: 96-36-8257Lnbjxhvej 600 mg tablet Active MG PO May 31, 2025 12:00am Complies with drug therapynabumetone 500 mg oral tablet (1 source)Nonsteroidal Anti-inflammatory Drugtake 1 tablet by mouth every twelve hoursNabumetone 500 MG 1 tablet Orally Twice a day Activenaproxen 250 mg oral tablet (1 source)Nonsteroidal Anti-inflammatory Drugtake 2 tablets by mouth every twelve hoursNaproxen 250 MG 2 tablets Orally every 12 hrs Activespironolactone 25 mg oral tablet (20 sources)Aldosterone AntagonistStart: 03-15-2025 End: 49-79-1539lyqc 0.5 tablet by mouth once dailyspironolactone (Aldactone) 25 MG tablet Indications: Localized edema Take 0.5 tablets (12.5 mg) by mouth Daily 45 tablet 1 03/15/2025 06/13/2025 ActiveStart: 02-19-2023 End: 84-64-7215mump 1 tablet by mouth once dailySpironolactone 25 mg Tablet Active 25 MG PO Daily February 19, 2023 12:00am Complies with drug therapy TraZODone & Diet Manage Prod (TRAZAMINE PO) (20 sources)TraZODone & Diet Manage Prod (TRAZAMINE PO) Take 50 mg by mouth Active Completed/Discontinued Medications MedicationDrug Class(es)DatesSig (Normalized)Sig (Original)amLODIPine 5 mg oral tablet (20 sources)Dihydropyridine Calcium Channel BlockerStart: 02-19-2023 End: 20-69-6515ttal 1 tablet by mouth once dailyAmlodipine 5 mg tablet Discontinued 5 MG PO Daily February 19, 2023 12:00am May 31, 2025 11:47am Start: 10-23-2017 End: 14-24-5554Ealencyqpx 10 mg tablet Discontinued 10 MG Daily October 23, 2017 1:00am February 19, 2023 7:59amcastor oil 0.788 mg/mg / tunisian balsam 0.087 mg/mg topical ointment (4 sources)Standardized Chemical AllergenStart: 10-30-2017 End: 47-36-1299xxfmz 1 g topically once dailyBalsam [place] Oil (Venelex) 87-788 mg/gram ointment Discontinued 1 GM TOPICAL Daily 60 October 30, 2017 1:00am September 20, 2018 12:14pm apply thin layer to legs dailydoxycycline hyclate 100 mg oral tablet (4 sources)Tetracycline-class DrugStart: 03-18-2023 End: 89-67-8693nhfp 1 tablet by mouth twice dailyDoxycycline Hyclate 100 mg tablet Discontinued 100 MG PO Twice daily 20 March 18, 2023 12:00am April 06, 2023 9:40amempagliflozin 10 mg oral tablet (4 sources)Sodium-Glucose Cotransporter 2 InhibitorStart: 02-19-2023 End: 54-80-7589yxjc 1 tablet by mouth once dailyEmpagliflozin 10 mg Tablet Discontinued 10 MG PO Daily February 19, 2023 12:00am May 31, 2025 11:47am Ibuprofen (1 source)Nonsteroidal Anti-inflammatory DrugIbuprofen Not-TakingmetFORMIN hydrochloride 500 mg oral tablet (5 sources)BiguanideStart: 10-23-2017 End: 31-77-8078Nkzcgctwz 500 mg tablet Discontinued 500 MG Twice daily October 23, 2017 1:00am February 19, 2023 8:00amtake 1 tablet by mouth once daily metFORMIN HCl 500 MG 1 tablet with a meal Orally Once a day Active Semaglutide,0.25 or 0.5MG/DOS, (Ozempic, 0.25 or 0.5 MG/DOSE,) 2 MG/3ML solution pen-injector (3 sources)Start: 03-14-2024 End: 98-92-9968Kavrbgoedrn,0.25 or 0.5MG/DOS, (Ozempic, 0.25 or 0.5 MG/DOSE,) 2 MG/3ML solution pen-injector Indications: Type 2 diabetes mellitus without complication, without long-term current use of insulin (CMS/HCC) Inject 0.5 mg under the skin 1 (one) time per week for 28 days 3 mL 2 03/14/2024 06/01/2024 Discontinued (Therapy completed)Start: 11-44-5715Whlqdxxnpac,0.25 or 0.5MG/DOS, (Ozempic, 0.25 or 0.5 MG/DOSE,) 2 MG/3ML solution pen-injector Indications: Type 2 diabetes mellitus without complication, without long-term current use of insulin (CMS/HCC) Inject 0.5 mg under the skin 1 (one) time per week for 28 days 3 mL 2 03/14/2024 Activesulfamethoxazole 800 mg / trimethoprim 160 mg oral tablet (4 sources)Dihydrofolate Reductase Inhibitor Antibacterial, Sulfonamide AntimicrobialStart: 10-26-2017 End: 64-55-0163hdll 1 tablet by mouth twice dailySulfamethoxazole-Trimethoprim (Bactrim Ds) 800-160 mg tablet Discontinued 1 TAB PO Twice daily October 26, 2017 1:00am September 20, 2018 12:13pmtraZODone hydrochloride 50 mg oral tablet (5 sources)Serotonin Reuptake InhibitorStart: 02-19-2023 End: 66-14-6653qzvc 1 tablet by mouth once daily at bedtimeTrazodone 50 mg Tablet Discontinued 50 MG PO Daily at bedtime February 19, 2023 12:00am May 31, 2025 11:47amtake 1 tablet by mouth every twenty-four hourstraZODone HCl 50 MG 1 tablet at bedtime as needed Orally Once a day Not-TakingTriamcinolone (2 sources)CorticosteroidStart: 12-77-1679Scvvwss -40 mg Sep, 40 mg Start: 69-18-6968Hwbujmm -40 mg Aug, 40 mg Problems Active Problems Problem ClassificationProblemDateDocumented DateEpisodic/ChronicAcute myocardial infarction (20 sources)Myocardial infarction; Translations: [Acute myocardial infarction, unspecified]Onset: 356231-48-9217JeiraofYmblsv; peripheral; and visceral artery aneurysms (20 sources)Dilatation of aorta; Translations: [Aortic ectasia, unspecified site]Onset: 981773-33-7493ZscaqbtDbwbkxk dysrhythmias (20 sources)Unspecified atrial fibrillation; Translations: [Ventricular tachycardia]Onset: 363889-96-4291MusytvuZunzbmw kidney disease (20 sources)Chronic kidney disease stage 3A ; Translations: [Chronic kidney disease, stage 3a (HCC)]Onset: 03-14-2024 Resolved: 943110-55-5554CnbeskuFqqxfsh kidney disease (2 sources)Chronic kidney disease; Translations: [Chronic kidney disease, stage 3b]Onset: 71-09-0932Neampbp obstructive pulmonary disease and bronchiectasis (20 sources)Chronic obstructive lung disease; Translations: [Chronic obstructive pulmonary disease, unspecified]Onset: 587561-76-3159QxzmqlwBlkcdqk ulcer of skin (20 sources)Chronic ulcer of lower extremity; Translations: [Non-pressure chronic ulcer of unspecified part of unspecified lower leg with unspecified severity]Onset: 03-14-2024 Resolved: 707996-31-2788VhnyiczViafgvj on above:Problem List clean-up per request of Phys. 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 with other forms of angina pectoris]Onset: 893194-43-2072Sxbjmdt Coronary atherosclerosis and other heart disease (6 sources)Presence of aortocoronary bypass graft; Translations: [H/O cardiac surgery]Onset: 01-73-5051XjixrrggVntlhbdcjh and other anemia (1 source)Anemia; Translations: [Anemia, unspecified]56-46-2790Naporowp Deficiency and other anemia (1 source)Iron deficiency anemia; Translations: [Iron deficiency anemia, unspecified]13-27-6320OdbsxzsyIrnwpgez mellitus with complications (20 sources)Type 2 diabetes mellitus with diabetic chronic kidney disease; Translations: [Type 2 diabetes mellitus with ulcer]Onset: 08-29-2022 Resolved: 218804-36-7356PkipmtxKgaisajp mellitus without complication (20 sources)Type 2 diabetes mellitus; Translations: [Type 2 diabetes mellitus without complications]Onset: 689160-74-4456JeiqipvRjexgysab of lipid metabolism (20 sources)Pure hypercholesterolemia, unspecified; Translations: [Mixed hyperlipidemia]Onset: 08-29-2022 Resolved: 902006-29-2065UvlriguUrxuhthuu hypertension (20 sources)Essential (primary) hypertension; Translations: [Essential hypertension]Onset: 47-93-7930EnvbnswRqrtuzoqjedm with complications and secondary hypertension (1 source)Hypertensive heart and chronic kidney disease with heart failure and stage 1 through stage 4 chronic kidney disease, or unspecified chronic kidney disease; Translations: [HTN HRT CKD W/HF STAGE 1-4/UNS CKD]Onset: 08-29-2022 ChronicNeoplasms of unspecified nature or uncertain behavior (20 sources)Monoclonal gammopathy of uncertain significance; Translations: [Monoclonal gammopathy]Onset: 290335-12-6535HwbsfyqEakgmdymrgnwkd (20 sources)Osteoarthritis of right hip joint; Translations: [Unilateral primary osteoarthritis, right hip]Onset: 18-23-5523BrsaoowJbtea aftercare (1 source)long-term (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; Translations: [SALESPERSON RECREATIONAL VEHICLES CURRENT USE OF ASPIRIN]Onset: 94-38-6918EfrrxgsqGzqbw aftercare (1 source)long-term (current) use of 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/antiplatelets; Translations: [JAIL ANTITHROMBOT/ANTIPLATLETS]Onset: 90-52-9316Jncxsszl Other aftercare (1 source)Other oysterman (current) drug therapy; Translations: [OTH JAIL CURRENT DRUG THERAPY]Onset: 88-93-2496TpqmvzaxLmacd aftercare (1 source)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; Translations: [JAIL USE ORAL HYPOGLYCEMIC DX]Onset: 04-45-4489MbdmzajvOzdbi and unspecified benign neoplasm (20 sources)Benign neoplastic disease; Translations: [Benign neoplasm, unspecified site]Onset: 541446-56-1352DcyyycgyIutxz circulatory disease (1 source)Personal history of sudden cardiac arrest; Translations: [PERSONAL HISTORY SUDDEN CARD ARREST]Onset: 91-70-0360EvpdigvqOkqkb connective tissue disease (4 sources)History of total knee arthroplasty; Translations: [Presence of right artificial knee joint]98-31-3845XykdvhaUaammaj on above:b/l kneesOther diseases of veins and lymphatics (20 sources)Non-infectious disorder of lymphatics; Translations: [Other specified noninfective disorders of lymphatic vessels and lymph nodes]Onset: 224537-86-0528NddkdzjVkuvc diseases of veins and lymphatics (20 sources)Lymphedema; Translations: [Lymphedema, not elsewhere classified] Onset: 812391-28-0642YqqnakaRvyyb diseases of veins and lymphatics (20 sources)Bilateral lower limb edema; Translations: [Chronic venous hypertension (idiopathic) with ulcer of bilateral lower extremity]Onset: 865363-99-4985MwsxgvdDsife diseases of veins and lymphatics (20 sources)Stasis dermatitis and venous ulcer of right lower extremity due to chronic peripheral venous hypertension; Translations: [Chronic venous hypertension (idiopathic) with ulcer and inflammation of rightlower extremity] Onset: 504872-13-9417BywnpvoJxfgq diseases of veins and lymphatics (20 sources)Venous insufficiency of leg; Translations: [Other specified disorders of veins]Onset: 121050-01-3029EadbiyftVhsmg ear and sense organ disorders (20 sources)Decreased hearing ; Translations: [Unspecified hearing loss, unspecified ear]Onset: 883444-09-9757UktmuzcBgvud gastrointestinal disorders (20 sources)Constipation; Translations: [Constipation, unspecified]Onset: 104137-61-2321WocmmrzcRnhzr lower respiratory disease (5 sources)Shortness of breath; Translations: [SHORTNESS OF BREATH]Onset: 62-54-7132SpzleixvRziht lower respiratory disease (20 sources)Solitary nodule of lung; Translations: [Solitary pulmonary nodule] Onset: 788170-96-0585VqcftmekCabmq nutritional; endocrine; and metabolic disorders (1 source)Body mass index (BMI) 40.0-44.9, adult; Translations: [BODY MASS INDEX BMI 40.0-44.9 ADULT]Onset: 74-36-2114QpwrxxyRhnkl nutritional; endocrine; and metabolic disorders (1 source)Morbid (severe) obesity due to excess calories; Translations: [MORBID SEVERE OBES D/T EXCESS BRENT]Onset: 79-69-1902GshlnngCrrtf nutritional; endocrine; and metabolic disorders (20 sources)Obesity caused by energy imbalance; Translations: [Morbid (severe) obesity due to excess calories]Onset: 595194-90-4181DfmcpvwByjpq nutritional; endocrine; and metabolic disorders (20 sources)Body mass index 40+ - severely obese; Translations: [Body mass index (BMI) 45.0-49.9, adult]Onset: 236862-91-9459VaggpwfHwygx nutritional; endocrine; and metabolic disorders (4 sources)Obesity; Translations: [Obesity, unspecified]87-01-2588RneltbnIehpp nutritional; endocrine; and metabolic disorders (2 sources)Morbid obesity; Translations: [Morbid (severe) obesity due to excess calories]15-26-2428UjoosxvNiqhl skin disorders (2 sources)Epidermoid cyst; Translations: [Epidermal cyst]97-84-8800Kocsmzkp Other skin disorders (4 sources)Hyperpigmentation of skin; Translations: [Disorder of pigmentation, unspecified]54-56-5530JdiqxdidTwkl-; endo-; and myocarditis; cardiomyopathy (except that caused by tuberculosis or sexually transmitted disease) (20 sources)Pericardial effusion (noninflammatory); Translations: [Pericardial effusion]Onset: 771194-05-0812UylpataxZksjojvmcm and visceral atherosclerosis (20 sources)Peripheral vascular disease; Translations: [Peripheral vascular disease, unspecified]Onset: 541962-73-6086AnncpelOiesjzrcx (except that caused by tuberculosis or sexually transmitted disease) (1 source)Unspecified bacterial pneumonia; Translations: [UNSPECIFIED BACTERIAL PNEUMONIA]Onset: 43-32-7772XrjdrnvjHnjwrvtc codes; unclassified (1 source)Obstructive sleep apnea (adult) (pediatric); Translations: [OBSTRUCTIVE SLEEP APNEA]Onset: 63-53-5994UkeaadsLodglkpo codes; unclassified (20 sources)Sleep apnea; Translations: [Sleep apnea, unspecified]Onset: 351407-54-4512PxsltsnEngkunwd codes; unclassified (7 sources)Obstructive sleep apnea syndrome; Translations: [Obstructive sleep apnea (adult) (pediatric)]86-91-8528UhlxebdAdmhfhce codes; unclassified (1 source)Edema, unspecified; Translations: [EDEMA UNSPECIFIED]Onset: 08-29-2022 EpisodicResidual codes; unclassified (1 source)Family history of ischemic heart disease and other diseases of the circulatory system; Translations: [FAM HX ISCHEMIC HRT DZ OTH DZ CIRC]Onset: 36-96-5031OixvdlasFlohioar codes; unclassified (20 sources)Bilateral lower limb edema; Translations: [Localized edema]Onset: 515121-33-4061XjblthqoOxnddpjr codes; unclassified (20 sources)Edema; Translations: [Edema, unspecified]Onset: 07-03-2021 Resolved: 935221-86-1720GdqlrpgePvcckcbb codes; unclassified (4 sources)Inflammatory oazvvttj17-21-2792IrcyhrloSdmqdqnzgib failure; insufficiency; arrest (adult) (1 source)Acute respiratory failure with hypoxia; Translations: [ACUTE RESPIRATORY FAIL W/HYPOXIA]Onset: 77-14-8032GgyfmfnfKtjsbcoeb and history of mental health and substance abuse codes (1 source)Personal history of nicotine dependence; Translations: [PERSONAL HISTORY OF NICOTINE DEPEND]Onset: 37-51-4840McyxguxvTuynwclzbs (except in labor) (4 sources)Sepsis, unspecified organism; Translations: [Severe sepsis without septic shock]Onset: 68-23-4212WmwywwmjHopx and subcutaneous tissue infections (9 sources)Wound cellulitis; Translations: [Cellulitis, unspecified]11-10-2017 EpisodicSubstance-related disorders (20 sources)Nicotine dependence; Translations: [Nicotine dependence, unspecified, uncomplicated]Onset: 336996-15-9570VxstmzxBponremloolq (1 source)CONTACT W/AND (SUSP) EXPOS COVID-19; Translations: [CONTACT W/AND (SUSP) EXPOS COVID-19]Onset: 58-36-4612Skptiegezgpu (1 source)CHRN KIDNEY DISEASE STG 3 UNSP; Translations: [CHRN KIDNEY DISEASE STG 3 UNSP]Onset: 92-61-9827Tblljpcqhszm (1 source)LOW BACK PAIN, UNSPECIFIED; Translations: [LOW BACK PAIN, UNSPECIFIED] Onset: 76-22-8473Zixyccmwiywo (1 source)Other pericardial effusion (noninflammatory); Translations: [Other pericardial effusion (noninflammatory)]Onset: 42-21-3101Badoqpve veins of lower extremity (20 sources)Varicose veins of lower extremity; Translations: [Varicose veins of bilateral lower extremities with pain]Onset: 09-08-2023 Resolved: 458352-73-3365Xgrtbgsf Past or Other Problems Problem ClassificationProblemDateDocumented DateEpisodic/ChronicMood disorders (20 sources)Mood disordersOnset: 12-14-2023 Resolved: 490763-71-3753Tqtpsopck of unspecified nature or uncertain behavior (20 sources)Neoplastic disease of uncertain behavior; Translations: [Neoplasm of uncertain behavior, unspecified]Onset: 364426-62-5789XsydghltAvqhmdsktue deficiencies (20 sources)Iron deficiency; Translations: [Iron deficiency]Onset: 09-08-2023 83-26-6972UnuwdicbNxlvo lower respiratory disease (20 sources)Cough; Translations: [Cough]Onset: 354856-73-7916IwnvrhkgOsxvf lower respiratory disease (2 sources)Other forms of dyspnea; Translations: [Other forms of dyspnea]Onset: 47-57-0196EfdmixosWnnqv non-traumatic joint disorders (4 sources)Pain in right hip; Translations: [PAIN IN RIGHT HIP]Onset: 05-08-2022 EpisodicOther screening for suspected conditions (not mental disorders or infectious disease) (20 sources)Patient encounter status; Translations: [Encounter for screening for malignant neoplasm of prostate]Onset: 865531-26-5683VcefmpmkMgekiklz codes; unclassified (2 sources)Localized edema; Translations: [Localized edema]Onset: 10-03-2024 81-29-5077OtkdyhtkBzwqzyst codes; unclassified (1 source)Localized edema; Translations: [Localized edema]Onset: 10-03-2024 EpisodicSyncope (20 sources)Syncope and collapse; Translations: [Syncope and collapse]Onset: 473249-60-4072QvxmheulAihnmnugneui (1 source)Other pericardial effusion (noninflammatory); Translations: [Other pericardial effusion (noninflammatory)]Onset: 01-23-2025 Results Test NameValueInterpretationReference RangeFacilityUS ankle/arm indiceson 95-75-1441VA ankle/arm indicesSumma [facility] [address] [place] [address] Ultrasound Report Signed Patient: Arianne Mcqueen MR#: [id number] : 1945 Acct:[id number] Age/Sex: 80 / M ADM Date: 05/31/25 Loc: [facility] Room: Type: [facility] Attending Dr: Biju Monroe MD Ordering Provider: Biju Monroe MD Date of Service: 05/31/25 US/US ankle/arm indices: I73.9 - Peripheral vascular disease, unspecified Copies to: Biju Mnoroe MD LOWER EXTREMITY SEGMENTAL ARTERIAL DOPSCAN (PVR) [...] Monroe MD,FACS,FSVS 05/31/2025 1:58 PM Dictation Location: [place] [address] Tech: Swetha Vincent Transcribed By: MICAH 05/31/25 1358 Dictated By: Biju Monroe MD 05/31/25 1357 Signed By: 05/31/25 1358[facility] Physician GroupBasophils Auto (Bld) [#/Vol] Ordered By: Aries Perez on 84-43-4203Rwvwcepej (Bld) [#/Vol]0.0 10 3/uL 0.0-0.1FRiverview Health InstituteBasophils/100 WBC Auto (Bld)Ordered By: Aries Perez on 65-14-8031Txisffubx/100 WBC (Bld)0.4 %0.2-2.0[facility] SouthEosinophils/100 WBC Auto (Bld)Ordered By: Aries Perez on 54-54-3273Myelexdyyph/100 WBC (Bld)1.3 %0.9-7.0[facility] SouthErythrocyte distribution width Auto (RBC) [Ratio]Ordered By: Aries Perez on 64-36-7774Jvvzxkewqso distribution width (RBC) [Ratio] 14.1 %11.0-15.0[facility] SouthGlobulin Calc (S) [Mass/Vol] Ordered By: Aries Perez on 62-25-7778Qykemyze (S) [Mass/Vol]5.7 g/dL [facility] SouthGlomerular filtration rate (GFR) estimation in non- AmericanOrdered By: Aries Perez on 39-51-5055FGJ/1.73 sq M.predicted among non-blacks MDRD (S/P/Bld) [Vol rate/Area]41 mL/min/{1.73_m2} Low>=60 mL/min/1.73m 2FRiverview Health InstituteHematocrit Auto (Bld) [Volume fraction]Ordered By: Aries Perez on 44-29-4874Xfvhjmgojd (Bld) [Volume fraction]36.9 %Low42.0-54.0[facility] SouthHemoglobin [Mass/volume] in BloodOrdered By: Aries Perez on 33-67-5776Eodkfzzznj (Bld) [Mass/Vol]11.7 g/dLLow14.0-18.0[facility] SouthLaboratory - Chemistry and Chemistry - challengeOrdered By: Aries Perez on 58-60-3654Dxtciiv [Mass/Vol]2.5 g/dLLow3.4-5.0[facility] ALP [Catalytic activity/Vol]64 U/G70-156RamiodpodSelect Medical Specialty Hospital - [facility] SouthALT [Catalytic activity/Vol]31 U/K61-94AwrntdjdzSelect Medical Specialty Hospital [facility] SouthAST [Catalytic activity/Vol]28 U/G48-32SgeoclvboSelect Medical Specialty Hospital [facility] SouthBilirubin [Mass/Vol]0.5 mg/dL0.2-1.0[facility] SouthCalcium [Mass/Vol]8.6 mg/dL8.5-10.1FRiverview Health InstituteChloride [Moles/Vol]103 mmol/L 98-107[facility] SouthCO2 [Moles/Vol]23.4 mmol/L21.0-32.0 [facility] SouthCreatinine [Mass/Vol]1.61 mg/dLHigh0.70-1.30 [facility] SouthGFR/1.73 sq M.predicted MDRD (S/P/Bld) [Vol rate/Area]50 mL/min/{1.73_m2}Low>=60 mL/min/1.73m 2FRiverview Health InstituteGlucose [Mass/Vol]102 mg/lK57-519MadwalkxdSelect Medical [facility] Potassium [Moles/Vol]4.3 mmol/L3.5-5.1FRiverview Health InstituteProtein [Mass/Vol]8.2 g/dL6.4-8.2FUniversity Hospitals Beachwood Medical Centerodium [Moles/Vol]136 mmol/R728-371IqyyfqyqvSelect Medical Specialty Hospital - [facility] SouthUrea nitrogen [Mass/Vol]30.0 mg/dL High7.0-18.0[facility] SouthUrea nitrogen/Creatinine [Mass ratio]18.6 mg/mgSelect Medical Specialty Hospital - [facility] SouthLaboratory - Hematology and Cell countsOrdered By: Aries Perez on 51-10-8952Deefneko granulocytes/100 WBC (Bld)1.6 %High0.0-0.5FRiverview Health Institute Leukocytes [#/volume] corrected for nucleated erythrocytes in Blood by Automated counOrdered By: Aries Perez on 57-51-5982VYR corrected for nucl RBC Auto (Bld) [#/Vol]7.9 10 3/uL4.0-11.0[facility] Lymphocytes Auto (Bld) [#/Vol]Ordered By: Aries Perez on 05-28-2025 Lymphocytes (Bld) [#/Vol]1.2 10 3/uL1.2-3.8[facility] Lymphocytes/100 WBC Auto (Bld)Ordered By: Aries Perez on 05-28-2025 Lymphocytes/100 WBC (Bld)15.4 %Low20.5-60.0[facility] SouthMCH Auto (RBC) [Entitic mass]Ordered By: Aries Perez on 92-85-4224EFP (RBC) [Entitic mass]30.4 pg25.9-34.0[facility] SouthMCHC Auto (RBC) [Mass/Vol]Ordered By: Aries Perez on 60-50-8012VYMO (RBC) [Mass/Vol] 31.7 g/dL29.9-35.2FRiverview Health InstituteMCV Auto (RBC) [Entitic vol] Ordered By: Aries Perez on 33-67-3585EFR (RBC) [Entitic vol]95.8 fLHigh 80.0-94.0[facility] SouthMonocytes Auto (Bld) [#/Vol]Ordered By: Aries Perez on 44-07-9673Jyoqsspea (Bld) [#/Vol]0.6 10 3/uL0.3-0.8 [facility] SouthMonocytes/100 WBC Auto (Bld)Ordered By: Aries Perez on 54-06-2544Ypgedrcjo/100 WBC (Bld)7.9 %1.7-12.0[facility] SouthNeutrophils Auto (Bld) [#/Vol]Ordered By: Aries Perez on 52-26-1590Jpngcwxfyzs (Bld) [#/Vol]5.8 10 3/uL1.4-6.5FRiverview Health InstituteNeutrophils/100 WBC Auto (Bld)Ordered By: Aries Perez on 92-32-3800Scndjonigfm/100 WBC (Bld)73.4 %43.0-75.0[facility] SouthNo Panel InformationOrdered By: Aries Perez on 36-52-7025Fszumzrcztm # (Auto)0.1 10 3/uL0.0-0.7FRiverview Health InstituteImmature Granulocyte # (Auto)0.13 10 3/uLHigh0.00-0.03[facility] SouthPlatelet mean volume Auto (Bld) [Entitic vol]Ordered By: Aries Perez on 16-39-8338Gmgdgxxg mean volume (Bld) [Entitic vol]8.9 fL Low9.5-13.5FRiverview Health InstitutePlatelets Auto (Bld) [#/Vol]Ordered By: Aries Perez on 59-09-7153Iqyrnyscu (Bld) [#/Vol]366 10 3/qL364-315 [facility] SouthRBC Auto (Bld) [#/Vol]Ordered By: Aries Perez on 21-68-7025RWX (Bld) [#/Vol]3.85 10 6/uLLow4.70-6.10Madison Healtherum or plasma albumin/globulin mass ratioOrdered By: Aries Perez on 08-17-1818Eppcrte/Globulin [Mass ratio]0.4 {ratio} Madison Healtherum or plasma anion gap determinationOrdered By: Aries Perez on 49-43-5647Iiipe gap [Moles/Vol]13.9 mmol/LFRiverview Health InstituteErythrocyte distribution width Auto (RBC) [Ratio]Ordered By: King Aragon on 06-83-6371Obqkqjxnzdk distribution width (RBC) [Ratio]14.3 %11.0-15.0[facility] SouthGlomerular filtration rate (GFR) estimation in non- AmericanOrdered By: King Aragon on 05-26-2025 GFR/1.73 sq M.predicted among non-blacks MDRD (S/P/Bld) [Vol rate/Area]44 mL/min/{1.73_m2}Low>=60 mL/min/1.73m 2FRiverview Health Institute Hematocrit Auto (Bld) [Volume fraction]Ordered By: King Aragon on 05-26-2025 Hematocrit (Bld) [Volume fraction]33.2 %Low42.0-54.0[facility] SouthHemoglobin [Mass/volume] in BloodOrdered By: King Aragon on 05-26-2025 Hemoglobin (Bld) [Mass/Vol]10.8 g/dLLow14.0-18.0[facility] SouthLaboratory - Chemistry and Chemistry - challengeOrdered By: King Aragon on 20-87-8751Bockhqp [Mass/Vol]8.6 mg/dL8.5-10.1FRiverview Health InstituteChloride [Moles/Vol]103 mmol/I23-550PggbdyssnSelect Medical Specialty Hospital - [facility] SouthCO2 [Moles/Vol]21.4 mmol/L21.0-32.0[facility] SouthCreatinine [Mass/Vol]1.52 mg/dLHigh0.70-1.30[facility] SouthGFR/1.73 sq M.predicted MDRD (S/P/Bld) [Vol rate/Area]54 mL/min/{1.73_m2}Low>=60 mL/min/1.73m 2FRiverview Health InstituteGlucose [Mass/Vol]157 mg/dLHigh 74-106[facility] SouthPotassium [Moles/Vol]4.9 mmol/L3.5-5.1 Madison Healthodium [Moles/Vol]133 mmol/GUlu583-001FoworkkxrSelect Medical Specialty Hospital - [facility] SouthUrea nitrogen [Mass/Vol]28.0 mg/dLHigh7.0-18.0[facility] SouthUrea nitrogen/Creatinine [Mass ratio]18.4 mg/mgSelect Medical Specialty Hospital - [facility] SouthLeukocytes [#/volume] corrected for nucleated erythrocytes in Blood by Automated counOrdered By: King Aragon on 05-26-2025 WBC corrected for nucl RBC Auto (Bld) [#/Vol]10.5 10 3/uL4.0-11.0[facility] Auto (RBC) [Entitic mass]Ordered By: King Aragon on 80-51-7930PGM (RBC) [Entitic mass]31.0 pg25.9-34.0[facility] SouthMCHC Auto (RBC) [Mass/Vol]Ordered By: King Aragon on 54-88-0279DXLD (RBC) [Mass/Vol]32.5 g/dL29.9-35.2FRiverview Health InstituteMCV Auto (RBC) [Entitic vol]Ordered By: King Aragon on 52-44-2446GXM (RBC) [Entitic vol]95.4 dYSsgh15.0-94.0[facility] SouthNo Panel Information Ordered By: King Aragon on 08-07-3668H-Reactive Protein, Quantitative9.12 mg/dLHigh<=0.50[facility] SouthPlatelet mean volume Auto (Bld) [Entitic vol]Ordered By: King Aragon on 34-23-3525Vsmqqlst mean volume (Bld) [Entitic vol]9.1 fLLow9.5-13.5FRiverview Health InstitutePlatelets Auto (Bld) [#/Vol]Ordered By: King Aragon on 60-09-0461Sezvqcmkc (Bld) [#/Vol]273 10 3/jV198-265BxbjqgjzqSelect Medical Specialty Hospital [facility] SouthRBC Auto (Bld) [#/Vol]Ordered By: King Aragon on 85-64-9440WNK (Bld) [#/Vol]3.48 10 6/uLLow4.70-6.10Madison Healtherum or plasma anion gap determinationOrdered By: King Aragon on 69-92-6580Hzgzi gap [Moles/Vol]13.5 mmol/LFRiverview Health InstituteGlomerular filtration rate (GFR) estimation in non- AmericanOrdered By: King Aragon on 97-98-0425FFP/1.73 sq M.predicted among non-blacks MDRD (S/P/Bld) [Vol rate/Area]49 mL/min/{1.73_m2}Low>=60 mL/min/1.73m 2FRiverview Health InstituteLaboratory - Chemistry and Chemistry - challengeOrdered By: King Aragon on 30-19-4183Lkmmhss [Mass/Vol]8.3 mg/dLLow8.5-10.1FRiverview Health InstituteChloride [Moles/Vol]104 mmol/B91-715SckbezmvrSelect Medical Specialty Hospital - [facility] SouthCO2 [Moles/Vol]21.6 mmol/L21.0-32.0[facility] SouthCreatinine [Mass/Vol]1.40 mg/dLHigh0.70-1.30[facility] SouthGFR/1.73 sq M.predicted MDRD (S/P/Bld) [Vol rate/Area]59 mL/min/{1.73_m2} Low>=60 mL/min/1.73m 2FRiverview Health InstituteGlucose [Mass/Vol]113 mg/hJAula60-952CmtrcurxzSelect Medical Specialty Hospital - [facility] SouthPotassium [Moles/Vol]4.3 mmol/L 3.5-5.1FUniversity Hospitals Beachwood Medical Centerodium [Moles/Vol]135 mmol/XWmq958-127 [facility] SouthUrea nitrogen [Mass/Vol]27.0 mg/dLHigh7.0-18.0 [facility] SouthUrea nitrogen/Creatinine [Mass ratio]19.3 mg/mg [facility] Healtherum or plasma anion gap determinationOrdered By: King Aragon on 98-55-7584Wiclv gap [Moles/Vol]13.7 mmol/LFRiverview Health InstituteBasophils Auto (Bld) [#/Vol]Ordered By: King Aragon on 63-99-4638Rolxumtvt (Bld) [#/Vol]0.0 10 3/uL0.0-0.1FRiverview Health InstituteBasophils/100 WBC Auto (Bld)Ordered By: King Aragon on 05-24-2025 Basophils/100 WBC (Bld)0.3 %0.2-2.0[facility] Eosinophils/100 WBC Auto (Bld)Ordered By: King Aragon on 05-24-2025 Eosinophils/100 WBC (Bld)0.2 %Low0.9-7.0[facility] Erythrocyte distribution width Auto (RBC) [Ratio]Ordered By: King Aragon on 19-66-1475Pnrscymmjbi distribution width (RBC) [Ratio]14.2 %11.0-15.0[facility] SouthGlobulin Calc (S) [Mass/Vol]Ordered By: King Aragon on 01-88-8737Afpwacgo (S) [Mass/Vol]5.6 g/dLSelect Medical Specialty Hospital - [facility] South Glomerular filtration rate (GFR) estimation in non- AmericanOrdered By: King Aragon on 04-07-2957LZN/1.73 sq M.predicted among non-blacks MDRD (S/P/Bld) [Vol rate/Area]41 mL/min/{1.73_m2}Low>=60 mL/min/1.73m 2FRiverview Health InstituteHematocrit Auto (Bld) [Volume fraction]Ordered By: King Aragon on 13-16-8989Omsxbfqcyg (Bld) [Volume fraction]32.6 %Low42.0-54.0 [facility] SouthHemoglobin [Mass/volume] in BloodOrdered By: King Aragon on 85-10-5578Xebbvjdmsw (Bld) [Mass/Vol]10.8 g/dLLow14.0-18.0 [facility] SouthIron binding capacity [Mass/volume] in Serum or PlasmaOrdered By: King Aragon on 50-53-8529Wlye binding capacity [Mass/Vol] 156.0 ug/iAAzt047.0-450.0[facility] SouthIron saturation [Mass Fraction] in Serum or PlasmaOrdered By: King Araogn on 82-45-7303Dozw saturation [Mass fraction]9.6 %[facility] SouthLaboratory - Chemistry and Chemistry - challengeOrdered By: King Aragon on 05-24-2025 Albumin [Mass/Vol]2.2 g/dLLow3.4-5.0[facility] SouthALP [Catalytic activity/Vol]80 U/N89-406XepvcoqtnSelect Medical Specialty Hospital - [facility] SouthALT [Catalytic activity/Vol]21 U/E57-88PrzuoqpouSelect Medical Specialty Hospital - [facility] SouthAST [Catalytic activity/Vol]17 U/A51-93OfoknemjnSelect Medical Specialty Hospital - [facility] SouthBilirubin [Mass/Vol]0.9 mg/dL0.2-1.0[facility] SouthCalcium [Mass/Vol]8.3 mg/dLLow8.5-10.1FRiverview Health InstituteChloride [Moles/Vol]101 mmol/L 98-107[facility] SouthCO2 [Moles/Vol]23.0 mmol/L21.0-32.0 [facility] SouthCobalamin (Vitamin B12) [Mass/Vol]715 pg/mL 232-1245[facility] SouthComment on above:Performed at: - [facility], [place] [id number] Director: Rony Clifford PhD, Phone: [phone] [Mass/Vol]1.64 mg/dLHigh0.70-1.30 [facility] SouthFerritin [Mass/Vol]887.0 ng/eDMrrs96.0-388.0 [facility] SouthGFR/1.73 sq M.predicted MDRD (S/P/Bld) [Vol rate/Area]49 mL/min/{1.73_m2}Low>=60 mL/min/1.73m 2FRiverview Health InstituteGlucose [Mass/Vol]109 mg/wRQhzd90-435ByiutdgfoSelect Medical Specialty Hospital - [facility] SouthIron [Mass/Vol]15.0 ug/dLLow65.0-175.0[facility] SouthPotassium [Moles/Vol]4.2 mmol/L3.5-5.1FRiverview Health InstituteProtein [Mass/Vol] 7.8 g/dL6.4-8.2FUniversity Hospitals Beachwood Medical Centerodium [Moles/Vol]132 mmol/LLow 136-145[facility] SouthUrea nitrogen [Mass/Vol]38.0 mg/dLHigh 7.0-18.0[facility] SouthUrea nitrogen/Creatinine [Mass ratio] 23.2 mg/mgSelect Medical Specialty Hospital - Columbus SouthLaboratory - Hematology and Cell countsOrdered By: King Aragon on 33-94-6001Yrzvcxsp granulocytes/100 WBC (Bld) 0.9 %High0.0-0.5FRiverview Health InstituteLeukocytes [#/volume] corrected for nucleated erythrocytes in Blood by Automated counOrdered By: King Aragon on 92-77-9409NBS corrected for nucl RBC Auto (Bld) [#/Vol]13.9 10 3/uLHigh 4.0-11.0[facility] SouthLymphocytes Auto (Bld) [#/Vol]Ordered By: King Aragon on 51-14-5061Fqoaxofxgso (Bld) [#/Vol]1.0 10 3/uLLow1.2-3.8 [facility] SouthLymphocytes/100 WBC Auto (Bld)Ordered By: King Aragon on 56-60-7605Bsozgdwjbri/100 WBC (Bld)6.8 %Low20.5-60.0[facility] HealthH Auto (RBC) [Entitic mass]Ordered By: King Aragon on 80-39-6581ZEU (RBC) [Entitic mass]30.9 pg25.9-34.0[facility] SouthMCHC Auto (RBC) [Mass/Vol]Ordered By: King Aragon on 54-15-1479JRZP (RBC) [Mass/Vol]33.1 g/dL29.9-35.2FRiverview Health InstituteMCV Auto (RBC) [Entitic vol]Ordered By: King Aragon on 23-12-8934UIR (RBC) [Entitic vol]93.1 fL80.0-94.0[facility] SouthMonocytes Auto (Bld) [#/Vol]Ordered By: King Aragon on 58-16-0093Ajhrcqubu (Bld) [#/Vol]0.9 10 3/uL High0.3-0.8[facility] SouthMonocytes/100 WBC Auto (Bld)Ordered By: King Aragon on 08-72-4905Dewrtdlxj/100 WBC (Bld)6.8 %1.7-12.0[facility] SouthNeutrophils Auto (Bld) [#/Vol]Ordered By: King Aragon on 52-84-7744Kearoqzfjau (Bld) [#/Vol]11.8 10 3/uLHigh1.4-6.5FRiverview Health InstituteNeutrophils/100 WBC Auto (Bld)Ordered By: King Aragon on 51-26-6845Lgmttonpgmx/100 WBC (Bld)85.0 %High43.0-75.0[facility] SouthNo Panel InformationOrdered By: King Aragon on 33-15-6520Q-Reactive Protein, Lpcogdqyzioo74.07 mg/dLHigh<=0.50[facility] Eosinophils # (Auto)0.0 10 3/uL0.0-0.7FRiverview Health InstituteFolate 6.60 ng/mLLow8.60-58.90[facility] SouthImmature Granulocyte # (Auto)0.12 10 3/uLHigh0.00-0.03[facility] SouthPlatelet mean volume Auto (Bld) [Entitic vol]Ordered By: King Aragon on 28-67-3476Tmklnzeb mean volume (Bld) [Entitic vol]9.4 fLLow9.5-13.5FRiverview Health InstitutePlatelets Auto (Bld) [#/Vol]Ordered By: King Aragon on 05-24-2025 Platelets (Bld) [#/Vol]226 10 3/cQ462-775XnxyshyxpSelect Medical Specialty Hospital - Columbus SouthRBC Auto (Bld) [#/Vol]Ordered By: King Aragon on 59-95-2077XRH (Bld) [#/Vol]3.50 10 6/uLLow4.70-6.10[facility] Healtherum or plasma albumin/globulin mass ratioOrdered By: King Aragon on 05-24-2025 Albumin/Globulin [Mass ratio]0.4 {ratio}[facility] Healtherum or plasma anion gap determinationOrdered By: King Aragon on 20-05-9444Nobhz gap [Moles/Vol]12.2 mmol/LFRiverview Health InstituteBasophils Auto (Bld) [#/Vol]Ordered By: Jefry Hardin on 53-71-1034Jhqgqimya (Bld) [#/Vol]0.0 10 3/uL 0.0-0.1FRiverview Health InstituteBasophils/100 WBC Auto (Bld)Ordered By: Jefry Hardin on 23-21-0389Hhsrjigjm/100 WBC (Bld)0.3 %0.2-2.0[facility] SouthBlood Cultureon 12-07-8452Xtnykgth identified Cx Nom (Bld)Gram Stain Gram Positive Bacilli ORGANISM: Bacillus sp not B. anthracis (O:BACSPNBANT) PERFORMED BY: [address] [place] [address] PATHOLOGIST [employer]PER[employer] MAYKEL WYATT M.D.NormalThe [facility] Physician GroupComment on above: Performed By: #### CUBLD #### [facility] [address] [place] [address] USAEosinophils/100 WBC Auto (Bld)Ordered By: Jefry Hardin on 27-86-1753Mbnxddsejwk/100 WBC (Bld)0.0 %Low0.9-7.0[facility] SouthErythrocyte distribution width Auto (RBC) [Ratio]Ordered By: Jefry Hardin on 18-44-4605Vnrpwpjianh distribution width (RBC) [Ratio]14.2 %11.0-15.0 [facility] SouthGlomerular filtration rate (GFR) estimation in non- AmericanOrdered By: Jefry Hardin on 40-28-1572WAF/1.73 sq M.predicted among non-blacks MDRD (S/P/Bld) [Vol rate/Area]29 mL/min/{1.73_m2}Low>=60 mL/min/1.73m 2FRiverview Health InstituteHematocrit Auto (Bld) [Volume fraction]Ordered By: Jefry Hardin on 53-16-7435Xoswjkotje (Bld) [Volume fraction] 34.1 %Low42.0-54.0[facility] SouthHemoglobin [Mass/volume] in BloodOrdered By: Jefry Hardin on 23-57-2720Zfgjnooqgk (Bld) [Mass/Vol]11.1 g/dL Low14.0-18.0[facility] SouthLaboratory - Chemistry and Chemistry - challengeOrdered By: Jefry Hardin on 32-66-0795Xsgjzhqam Ql (U) NegativeNEGATIVESelect Medical Specialty Hospital - [facility] SouthGlucose (U) [Mass/Vol]Negative NEGATIVESelect Medical Specialty Hospital - [facility] SouthKetones Ql (U)NegativeNEGATIVESelect Medical Specialty Hospital - [facility] SouthpH (U)6.0 [pH]5.0-9.0[facility] Specific gravity (U) [Rel density]1.0151.005-1.025[facility] SouthUrobilinogen Qn (U)2.0 {Timmy'U}/dLAbnormal0.2-1.0[facility] SouthCalcium [Mass/Vol]8.1 mg/dLLow8.5-10.1FRiverview Health InstituteChloride [Moles/Vol]98 mmol/D17-682XzlkaerxuSelect Medical Specialty Hospital - [facility] SouthCO2 [Moles/Vol]24.7 mmol/L21.0-32.0[facility] SouthCreatinine [Mass/Vol]2.16 mg/dLHigh0.70-1.30[facility] SouthGFR/1.73 sq M.predicted MDRD (S/P/Bld) [Vol rate/Area]36 mL/min/{1.73_m2}Low>=60 mL/min/1.73m 2FRiverview Health InstituteGlucose [Mass/Vol]111 mg/dLHigh 74-106[facility] SouthNatriuretic peptide B (Bld) [Mass/Vol] 1042.0 pg/mL<=1800.0[facility] SouthPotassium [Moles/Vol]4.3 mmol/L3.5-5.1FUniversity Hospitals Beachwood Medical Centerodium [Moles/Vol]131 mmol/LLow 136-145[facility] SouthUrea nitrogen [Mass/Vol]44.0 mg/dLHigh 7.0-18.0[facility] SouthUrea nitrogen/Creatinine [Mass ratio] 20.4 mg/mgSelect Medical Specialty Hospital - [facility] SouthLaboratory - Chemistry and Chemistry - challengeOrdered By: King Aragon on 69-37-3083Jujzcpi [Moles/Vol]1.4 mmol/L 0.4-2.0[facility] SouthLaboratory - Hematology and Cell counts Ordered By: Jefry Hardin on 96-47-0685Waaojctb granulocytes/100 WBC (Bld)0.9 % High0.0-0.5FRiverview Health InstituteLaboratory - Microbiology and Antimicrobial susceptibilityOrdered By: King Aragon on 19-57-7493Lnghgtnn identified Cx Nom (Bld)Bacillus sp not B. anthracisAbnormalSelect Medical Specialty Hospital - [facility] SouthLaboratory - Specimen informationOrdered By: Jefry Hardin on 54-79-9360Bxjkvyvwgr (U)CLEARCLEARFRiverview Health InstituteColor (U) YELLOWYELLOWSelect Medical Specialty Hospital - [facility] SouthLaboratory - UrinalysisOrdered By: Jefry Hardin on 90-30-4257Mznhotrni esterase Test strip Ql (U)NegativeNEGATIVE [facility] SouthMucus Ql (Urine sed)NONE SEENNONE SEENSelect Medical Specialty Hospital - [facility] SouthNitrite Ql (U)NegativeNEGATIVESelect Medical Specialty Hospital - [facility] SouthProtein Ql (U)TRACE mg/dLNEG/TRACESelect Medical Specialty [facility] Leukocytes [#/volume] corrected for nucleated erythrocytes in Blood by Automated counOrdered By: Jefry Hardin on 23-41-0636GCW corrected for nucl RBC Auto (Bld) [#/Vol]11.6 10 3/uLHigh4.0-11.0[facility] SouthLymphocytes Auto (Bld) [#/Vol]Ordered By: Jefry Hardin on 14-63-8000Pibdwuvtmfy (Bld) [#/Vol]0.7 10 3/uLLow1.2-3.8[facility] SouthLymphocytes/100 WBC Auto (Bld) Ordered By: Jefry Hardin on 97-87-9682Xedntodrumk/100 WBC (Bld)6.0 %Low20.5-60.0 [facility]H Auto (RBC) [Entitic mass]Ordered By: Jefry Hardin on 16-06-4734QSG (RBC) [Entitic mass]30.8 pg25.9-34.0[facility] SouthMCHC Auto (RBC) [Mass/Vol]Ordered By: Jefry Hardin on 05-23-2025 MCHC (RBC) [Mass/Vol]32.6 g/dL29.9-35.2FRiverview Health InstituteMCV Auto (RBC) [Entitic vol]Ordered By: Jefry Hardin on 06-68-8811CYF (RBC) [Entitic vol] 94.7 eFCozk16.0-94.0[facility] SouthMonocytes Auto (Bld) [#/Vol]Ordered By: Jefry Hardin on 23-87-4242Ncfgxhlad (Bld) [#/Vol]0.9 10 3/uL High0.3-0.8[facility] SouthMonocytes/100 WBC Auto (Bld)Ordered By: Jefry Hardin on 09-55-6265Pomblviof/100 WBC (Bld)7.8 %1.7-12.0[facility] SouthNeutrophils Auto (Bld) [#/Vol]Ordered By: Jefry Wilfred on [id number] (Bld) [#/Vol]9.9 10 3/uLHigh1.4-6.5FRiverview Health InstituteNeutrophils/100 WBC Auto (Bld)Ordered By: Jefry Hardin on [id number]/100 WBC (Bld)85.0 %High43.0-75.0[facility] SouthNo Panel InformationOrdered By: Jefry Hardin on [id number] Bacteria TRACE #/HPFAbnormalNONE [facility] HospitalUrine Occult Blood NegativeNEGATIVESelect [facility] SouthUrine Other CastsNONE SEEN #/LPFNONE [facility] HospitalUrine Other CrystalsNone Seen #/HPFNone [facility] HospitalUrine RBC0-2 #/HPF0-2FRiverview Health InstituteUrine Squamous Epithelial CellsRARE #/LPFNONE/RARE [facility] SouthUrine WBC2-5 #/HPFAbnormalNONE [facility]ostoria City HospitalEosinophils # (Auto)0.0 10 3/uL0.0-0.7FRiverview Health InstituteImmature Granulocyte # (Auto)0.11 10 3/uLHigh0.00-0.03[facility] SouthTroponin I High Sensitivity5.6 pg/mL4.0-76.1FRiverview Health InstituteComment on above:CUT-OFF POINTS HAVE BEEN ESTABLISHED BASED ON THE FOURTHUNIVERSAL DEFINITION OF MYOCARDIAL INFARCTION. THE UPPERREFERENCE LIMIT (URL) OF TROPONIN, DEFINED THE 99THPERCENTILE OF cTnI DISTRIBUTION IN A REFERENCE POPULATION,HAS BEEN CONFIRMED THE DECISION THRESHOLD FOR MIDIAGNOSIS.99TH PERCENTILE = 76.2 PG/MLNOTE: HIGH-SENSITIVITY TROPONIN ASSAY IS NOT INTENDED TO BEUSED IN ISOLATION BUT SHOULD BE INTERPRETED IN CONJUNCTIONWITH OTHER DIAGNOSTIC AND CLINICAL INFORMATION.Platelet mean volume Auto (Bld) [Entitic vol]Ordered By: Jefry Hardin on 35-58-9848Kivauues mean volume (Bld) [Entitic vol]9.2 fLLow9.5-13.5FRiverview Health InstitutePlatelets Auto (Bld) [#/Vol]Ordered By: Jefry Hardin on 94-58-2356Vpsbsjnvz (Bld) [#/Vol]218 10 3/uN059-386CitsspcbrSelect Medical Specialty Hospital - Columbus SouthRBC Auto (Bld) [#/Vol]Ordered By: Jefry Hardin on 06-92-5734QGC (Bld) [#/Vol]3.60 10 6/uLLow 4.70-6.10Madison Healtherum or plasma anion gap determinationOrdered By: Jefry Hardin on 29-67-6288Zbufv gap [Moles/Vol]12.6 mmol/LFRiverview Health InstituteHbA1c (Bld) [Mass fraction]on 03-21-2025 Interpretation and review of laboratory resultsAbnormalHarry S. Truman Memorial [facility] HealthcareLaboratory - Hematology and Cell countson 15-65-8426FgM5g (Bld) [Mass fraction]6 %NOMS Idxhywvlex09nx 51-60-372332Nhnnxvxyt labs results and echo from 02/21/2025: MD Katty Tan MA His echo and blood testing show stable cardiac and renal function. Continue same treatment and follow up in 6 months. Spoke with patient and informed him of result. He verbalized understanding. NormalKettering Health MiamisburgALL BASIC METABOLIC PANELon 02-21-2025 Anion gap [Moles/Vol]11.9 mmol/LNOMS HealthcareCalcium [Mass/Vol]8.9 mg/dL8.5 - 10.1 mg/dLNOMS HealthcareChloride [Moles/Vol]98 mmol/L98 - 107 mmol/LNOMS HealthcareCO2 [Moles/Vol]28.9 mmol/L21.0 - 32.0 mmol/LNOMS HealthcareCreatinine [Mass/Vol]1.7 mg/dLHigh0.70 - 1.30 mg/dLNODE HealthcareGFR/1.73 sq M.predicted CKD-EPI (S/P/Bld) [Vol rate/Area]47Low>=60 mL/min/1.73m 2NOMS HealthcareGlucose [Mass/Vol]141 mg/bYFejf51 - 106 mg/dLNOMS HealthcareInterpretation and review of laboratory resultsAbnormalNOMS HealthcarePotassium [Moles/Vol]4.8 mmol/L3.5 - 5.1 mmol/LNOMS HealthcareSodium [Moles/Vol]134 mmol/JYny424 - 145 mmol/LNOMS HealthcareTBH EGFR-NON AF YLPEBUUZ71Umw>=60 mL/min/1.73m 2NOMS HealthcareUrea nitrogen [Mass/Vol]39 mg/dLHigh7.0 - 18.0 mg/dLNOMS HealthcareUrea nitrogen/Creatinine [Mass ratio]22.9 mg/mgNOMS HealthcareCLINISYNCNOMS HealthcareCA ECHO DOPPLER COMPLETEon 88-04-5049[place] [address] Cardiology Report Signed Patient: ARIANNE MCQUEEN MR#: [id number] : 1945 Acct:[id number] Age/Sex: 79 / M ADM Date: 02/21/25 Loc: CARD Attending Dr: CATINA HEARN Ordering Physician: CATINA HEARN Date of Service: 02/21/25 Procedure(s): CA echo doppler complete Accession Number(s): [id number] cc: Teressa Sierra NP; CATINA HEARN Patient Name: ARIANNE MCQUEEN MR#: [id number] : 1945 Exam Date: 02/21/2025 Ordering Doctor: DR CATINA HEARN M.D. ECHOCARDIOGRAM REPORT PROCEDURE: CA ECHO DOPPLER COMPLETE INDICATIONS: Chronic diastolic heart failure, h/o pericardial effusion, CABG, OK, COPD, hypertension, diabetes COMPARISON: None. DESCRIPTION: COMPLETE [...] Area (VTI): 4.57 cm2, 4.57 cm2 Deceleration Faulk: Pressure Half-Time: Peak Velocity(Antegrade Flow): 0.89 m/s Peak Gradient(Antegrade Flow): 3.13 mm[Hg] Mean Velocity(Antegrade Flow): 0.56 m/s Mean Gradient(Antegrade Flow): 1.52 mm[Hg] Velocity Time Integral: 21.41 cm Tricuspid Valve Peak Velocity (Regurgitant Flow): 2.80 m/s Peak Velocity: Pulmonic Valve Mean Gradient: 1. (more content not included)...TBHRadiology, Radiologist, MD - 02/21/2025 [place] [address] Cardiology Report Signed Patient: ARIANNE MCQUEEN MR#: [id number] : 1945 Acct:[id number] Age/Sex: 79 / M ADM Date: 02/21/25 Loc: CARD Attending Dr: CATINA HEARN Ordering Physician: CATINA HEARN Date of Service: 02/21/25 Procedure(s): CA echo doppler complete Accession Number(s): [id number] cc: Teressa Sierra ARTIST SCIENTIFIC; CATINA HEARN Patient Name: ARIANNE MCQUEEN MR#: [id number] : 1945 Exam Date: 02/21/2025 Ordering Doctor: DR CATINA HEARN M.D. ECHOCARDIOGRAM REPORT PROCEDURE: CA ECHO DOPPLER COMPLETE INDICATIONS: Chronic diastolic heart failure, h/o pericardial effusion, CABG, OK, COPD, hypertension, diabetes COMPARISON: None. DESCRIPTION: COMPLETE [...] Area (VTI): 4.57 cm2, 4.57 cm2 Deceleration Faulk: Pressure Half-Time: Peak Velocity(Antegrade Flow): 0.89 m/s [...] Signed By: 02/21/25 1441 DD/ 1440 TD/TT: Insurance Specialist: JASMYNE [facility]ding County HospitalRadiology Study observation (narrative)[facility] ECHO DOPPLER COMPLETEOrdered By: Radiologist Radiology on 02-46-4567XQWR C[facility] Imaging Work Phone: No [facility] Informationon 90-16-6219Sbnugb length (cm): 0.8 Lesion width (cm): 0.7 [...] used: 7.0 ml Estimated blood loss: 1.0 mlNOMS [facility] CampusComplexity: Intermediate Final length (cm): 4 Reason for [...] uncontrollable bleeding, or complications. Dressing type: pressure dressingDeaconess Incarnate Word Health SystemOffice Visiton 41-09-7588Oouirw- up [id number] Arianne Mcqueen 1945 M Date Provider Department Center 01/23/2025 367-CATINA HEARN SHILPI Santiago Family History Problem Relation Age of Onset Coronary artery disease Mother Family Status - Relation Status Age at Mother Father Level of Service:67324 [place] OFFICE/OUTPATIENT ESTABLISHED MOD MDM 30 [facility] HospitalOrders Onlyon 51-39-3665Alyfxu [id number] Arianne Mcqueen 1945 M Date Provider Department Center 01/12/2025 [id number], HISTORICAL SHILPI Santiago Family History Problem Relation Age of Onset Coronary artery disease Mother Family Status - Relation Status Age at MotherNormalUniversity [facility]36on 41-92-733251Fxxsl with Ladonna from [facility] and made her aware of furosemide increase. She will draw BMP in 1 week at patient's home. Order faxed to her. I spoke with patient and instructed him to double furosemide to 80mg daily. Advised him Ladonna will draw his blood in 1 week. Scheduled him for follow up with Dr. Hearn on 01/23. Patient verbalized understanding.[facility]36on 87-08-249455Jtaqfv with [facility] called asking if patient's diuretics could be increased. She said he was at [facility] ED recently for scrotal edema. She [...] I receive result I will forward to you.Normal [facility] MiamisburgALL BASIC METABOLIC PANELon 75-75-6877Orsfx gap [Moles/Vol]6.6 mmol/LNOMS HealthcareCalcium [Mass/Vol]8.4 mg/dLLow8.5 - 10.1 mg/dLNOMS HealthcareChloride [Moles/Vol]100 mmol/L98 - 107 mmol/LNOMS HealthcareCO2 [Moles/Vol]30.5 mmol/L21.0 - 32.0 mmol/LNOMS HealthcareCreatinine [Mass/Vol]1.55 mg/dLHigh0.70 - 1.30 mg/dLNOMS HealthcareGFR/1.73 sq M.predicted CKD-EPI (S/P/Bld) [Vol rate/Area]53Low>=60 mL/min/1.73m 2NOMS HealthcareGlucose [Mass/Vol]139 mg/qUVyzv89 - 106 mg/dLNOMS HealthcareInterpretation and review of laboratory resultsAbnormalNOMS HealthcarePotassium [Moles/Vol]4.1 mmol/L3.5 - 5.1 mmol/LNOMS HealthcareSodium [Moles/Vol]133 mmol/UZsc235 - 145 mmol/LNOMS HealthcareTBH EGFR-NON AF DIQRDQNB01Uxw>=60 mL/min/1.73m 2NOMS HealthcareUrea nitrogen [Mass/Vol]29 mg/dLHigh7.0 - 18.0 mg/dLNOMS HealthcareUrea nitrogen/Creatinine [Mass ratio]18.7 mg/mgNOMS HealthcareALL PRO BNPon 65-22-9842KP PRO B TYPE NATRIURETIC DENG777 pg/mLNINF - 1800.0 pg/mLNOMS HealthcareNo Panel Informationon 72-61-5804IXYDFGSIYRQNF HealthcareNo Panel Informationon 34-36-4281Cqqe of biopsy: tangential Informed consent: discussed and [...] Photo taken Amount of lidocaine used: 2.0 [facility]villeNo Panel InformationOrdered By: Debora Gould on 96-67-9149ZPGD RxqonzbmviMwL9i (Bld) [Mass fraction]on 49-59-9735Xtysmmtqdwhkxl and review of laboratory resultsAbnormCurahealth Heritage Valley HealthcareLaboratory - Hematology and Cell countson 75-29-9818OpA9m (Bld) [Mass fraction]5.9 %[facility] HealthcareALL BASIC METABOLIC PANELon 13-65-1827Zqssc gap [Moles/Vol]6.7 mmol/LNOMS HealthcareCalcium [Mass/Vol]8.6 mg/dL8.5 - 10.1 mg/dLNOMS HealthcareChloride [Moles/Vol]104 mmol/L98 - 107 mmol/LNOMS Healthcare CO2 [Moles/Vol]30.2 mmol/L21.0 - 32.0 mmol/LNOMS HealthcareCreatinine [Mass/Vol] 1.33 mg/dLHigh0.70 - 1.30 mg/dLNOMS HealthcareGFR/1.73 sq M.predicted CKD-EPI (S/P/Bld) [Vol rate/Area]>60>=60 mL/min/1.73m 2NOMS HealthcareGlucose [Mass/Vol] 132 mg/nVSqaj24 - 106 mg/dLNOMS HealthcareInterpretation and review of laboratory resultsAbnormalNOMS HealthcarePotassium [Moles/Vol]4.9 mmol/L3.5 - 5.1 mmol/LNOMS HealthcareSodium [Moles/Vol]136 mmol/L136 - 145 mmol/LNOMS HealthcareTBH EGFR-NON AF FKNJXRTV69Epw>=60 mL/min/1.73m 2NOMS HealthcareUrea nitrogen [Mass/Vol]31 mg/dLHigh7.0 - 18.0 mg/dLNOMS HealthcareUrea nitrogen/Creatinine [Mass ratio]23.3 mg/mgNOMS HealthcareOHIOANS HOME HEALTH DROP OFF CLINISYNCNOMS HealthcareOffice Visiton 84-79-7007Edyjcm-up [id number] Arianne Mcqueen 1945 M Date Provider Department Center 10/03/2024 CATINA ROBERTS SHILPI Santiago Family History Problem Relation Age of Onset Coronary artery disease Mother Family Status - Relation Status Age at Mother Level of Service:[address]135 [place] OFFICE/OUTPATIENT ESTABLISHED MOD MDM 30 [facility] HospitalALL CBC WITH AUTO DIFFon 96-16-6669DDPQZRETX ABSOLUTE FNAP0ZDZQ HealthcareBasophils/100 WBC (Bld)0.5 %0.2 - 2.0 %NOMS HealthcareEosinophils/100 WBC (Bld)3.4 %0.9 - 7.0 %NOMS HealthcareErythrocyte distribution width (RBC) [Ratio]13.8 %11.0 - 15.0 %NOMS HealthcareHematocrit (Bld) [Volume fraction]36.7 %Low42.0 - 54.0 %NOMS HealthcareHemoglobin (Bld) [Mass/Vol]11.9 g/dLLow14.0 - 18.0 g/dLNOMS HealthcareIMMATURE GRANULOCYTES ABS AUTO0.03NOMS HealthcareImmature granulocytes/100 WBC (Bld)0.5 %0.0 - 0.5 %[facility] Word Health SystemInterpretation and review of laboratory resultsAbnoSt. Mary Medical Center LYMPHOCYTES ABSOLUTE AUTO1.3NOSaint John's Breech Regional Medical CenterLymphocytes/100 WBC (Bld)20.2 %Low 20.5 - 60.0 %[facility]ox SouthH (RBC) [Entitic mass]30.5 pg25.9 - 34.0 pgCox SouthHC (RBC) [Mass/Vol]32.4 g/dL29.9 - 35.2 g/dLCox SouthV (RBC) [Entitic vol]94.1 dAAetl70.0 - 94.0 fLDeaconess Incarnate Word Health SystemMONOCYTES ABSOLUTE AUTO0.7 [facility] HealthcareMonocytes/100 WBC (Bld)10.9 %1.7 - 12.0 %[facility] NEUTROPHILS ABSOLUTE AUTO4.2NOMS HealthcareNeutrophils/100 WBC (Bld)64.5 %43.0 - 75.0 %[facility] Health SystemPlatelet mean volume (Bld) [Entitic vol]9.4 fLLow9.5 - 13.5 fLDeaconess Incarnate Word Health SystemTBH EO #0.2NOMS HealthcareTB BFS478WHVICarondelet Health RBC3.9 LowNOSaint John's Breech Regional Medical CenterTB WBC6.4De[facility] Word Health SystemCLINISYNCNOMS HealthcareALL CBC WITH AUTO DIFFon 43-07-5318Zlfqfolglgm distribution width (RBC) [Ratio]13.6 %11.0 - 15.0 %[facility] Health SystemHematocrit (Bld) [Volume fraction]36.9 %Low42.0 - 54.0 % [facility] Health SystemHemoglobin (Bld) [Mass/Vol]12.2 g/dLLow14.0 - 18.0 g/dLASHLEY REGIONAL MEDICAL [facility]ENTER HealthcareInterpretation and review of laboratory resultsAbnormalDeaconess Incarnate Word Health System MCH (RBC) [Entitic mass]31.2 pg25.9 - 34.0 pgCox SouthHC (RBC) [Mass/Vol]33.1 g/dL29.9 - 35.2 g/dLCox SouthV (RBC) [Entitic vol]94.4 fL High80.0 - 94.0 fLDeaconess Incarnate Word Health SystemPlatelet mean volume (Bld) [Entitic vol]8.7 fL Low9.5 - 13.5 fLNOCarondelet Health ZPJ238WHEECarondelet Health RBC3.91LowNOCarondelet Health WBC7.2NOMS HealthcareCLINISYNCNMERCY HOSPITAL [facility] Rspzsiuvqd48sy Regarding stress test result from 03/17/2024: CUAUHTEMOC Freeman MA Stress test looks fine No ischemia noted and no reversible defect noted. Patient informed.NormalUnTrumbull Memorial HospitalOffice Visiton 99-87-3260Lwcbbk-up [id number] Arianne Mcqueen 1945 M Date Provider Department Center 03/09/2024 ARIELLA GRAVES Family History Problem Relation Age of Onset Coronary artery disease Mother Family Status - Relation Status Age at Mother Level of Service:[address]64 [place] OFFICE/OUTPATIENT ESTABLISHED MOD MDM 30 MIN Reason for Visit and Comments: Follow-up [491835] - 3 month follow upNormalUniversHighland District Hospital Orders Onlyon 77-57-5434Iltvff [id number] Arianne Mcqueen 1945 M Date Provider Department Center 03/09/2024 LIBRADO CALDERON SHILPI [facility] Family History Problem Relation Age of Onset Coronary artery disease Mother Family Status - Relation Status Age at MotherNormalUniversHighland District HospitalBNPon 82-22-9501Bzfoikohpgb peptide B (Bld) [Mass/Vol]1748.0 pg/mLNormal<=1,800.0The [facility] Comment on above:Performed By: #### POCGLUC #### [facility] [address] [place] [address] Dr. Deidre Garcia AUTO DIFFon 25-74-8160SJNR #0.0 103/ulNormal0.0-0.1The [facility] HospitalComment on above:Performed By: #### CBC #### [facility] [address] [place] [address] Dr. Deidre TijerinaBasophils/100 WBC (Bld)0.1 %Critically low0.2-2.0The [facility] HospitalComment on above:Performed By: #### CBC #### [facility] [address] [address] [address] Deidre Blanco #0.0 103/ulNormal0.0-0.7The [facility] HospitalComment on above: Performed By: #### CBC #### [facility] [address] [address] [address] Deidre Brookeosinophils/100 WBC (Bld)0.0 %Critically low0.9-7.0The [facility] HospitalComment on above:Performed By: #### CBC #### [facility] [address] [place] [address] Dr. Deidre Brookerythrocyte distribution width (RBC) [Ratio]13.6 %Makinm24.0-15.0 Premier Healthment on above:Performed By: #### CBC #### [facility] [address] [place] [address] Dr. Deidre TijerinaHematocrit (Bld) [Volume fraction]30.1 %Critically low42.0-54.0 [facility] HospitalComment on above:Performed By: #### CBC #### [facility] [address] [place] [address] Dr. Deidre TijerinaHemoglobin (Bld) [Mass/Vol]9.8 g/dLCritically low14.0-18.0The [facility] Campusment on above:Performed By: #### CBC #### [facility] [address] [place] [address] Dr. Deidre Del Castillo #0.13 10e3/ulCritically high0.00-0.03The [facility] Comment on above:Performed By: #### CBC #### [facility] [address] [place] [address] Dr. Deidre Del Castillo %1.0 %Critically high0.0-0.5The [facility] Main Campusment on above:Performed By: #### CBC #### [facility] [address] [place] [address] Dr. Deidre Duran #1.2 103/ulNormal1.2-3.8The [facility] HospitalComment on above:Performed By: #### CBC #### [facility] [address] [address] [address] Deidre Hoytmphocytes/100 WBC (Bld)8.6 %Critically low20.5-60.0The [facility] HospitalComment on above:Performed By: #### CBC #### [facility] [address] [address] [address] Deidre López DIFF REQNONormalThe [facility] HospitalComment on above: Performed By: #### CBC #### [facility] [address] [address] [address] Deidre Mcbride (RBC) [Entitic mass]30.7 toTwcmhu87.9-34.0The [facility] HospitalComment on above:Performed By: #### CBC #### [facility] [address] [place] [address] Dr. Deidre Mcbride (RBC) [Mass/Vol]32.6 g/dQUprqpg30.9-35.2The [facility] HospitalComment on above:Performed By: #### CBC #### [facility] [address] [place] [address] Dr. Deidre Mcbride (RBC) [Entitic vol]94.4 fLCritically high80.0-94.0The [facility] HospitalComment on above:Performed By: #### CBC #### [facility] [address] [place] [address] Dr. Deidre Piña #0.8 103/ulNormal0.3-0.8The [facility] Campusment on above:Performed By: #### CBC #### [facility] [address] [place] [address] Dr. Deidre Gradyocytes/100 WBC (Bld)6.2 %Normal1.7-12.0The [facility] on above:Performed By: #### CBC #### [facility] [address] [place] [address] Dr. Deidre Sullivan #11.3 103/ulCritically high1.4-6.5The [facility] Comment on above:Performed By: #### CBC #### [facility] [address] [address] [address] Deidre Thompsonutrophils/100 WBC (Bld)84.1 %Critically high43.0-75.0The [facility] HospitalComment on above:Performed By: #### CBC #### [facility] [address] [address] [address] Deidre TijerinaPlatelet mean volume (Bld) [Entitic vol]9.3 fLCritically low 9.5-13.5The [facility] HospitalComment on above:Performed By: #### CBC #### [facility] [address] [place] [address] Dr. Deidre TijerinaPLT204 103/yfQlphhg187-175Eqn [facility] HospitalComment on above: Performed By: #### CBC #### [facility] [address] [place] [address] Dr. Deidre TijerinaRBC3.19 106/ulCritically low4.70-6.10The [facility] HospitalComment on above:Performed By: #### CBC #### [facility] [address] [address] [address] Deidre TijerinaWBC13.5 103/ulCritically high4.0-11.0The [facility] HospitalComment on above:Performed By: #### CBC #### [facility] [address] [place] [address] Dr. Deidre TijerinaPOINT OF CARE GLUCOSEon 16-74-4552Usgdkgv [Mass/Vol]164 mg/dL Critically qkxg96-468Prk [facility] HospitalComment on above:Performed By: #### POCGLUC #### [facility] [address] [place] [address] Dr. Deidre TijerinaPROF CHEM 8 (BAS METB)on 35-03-1625Rqgdn gap [Moles/Vol]10.5 mmol/LNormalThe [facility] HospitalComment on above:Performed By: #### POCGLUC #### [facility] [address] [place] [address] Dr. Deidre TijerinaCalcium [Mass/Vol]8.1 mg/dLCritically low8.5-10.1The [facility] HospitalComment on above:Performed By: #### POCGLUC #### [facility] [address] [address] [address] Deidre TijerinaChloride [Moles/Vol]100 mmol/DOucwqo22-405Qlu [facility] Comment on above:Performed By: #### POCGLUC #### [facility] [address] [address] [address] Deidre TijerinaCO2 [Moles/Vol]24.4 mmol/AFldtdb64.0-32.0The [facility] Comment on above:Performed By: #### POCGLUC #### [facility] [address] [address] [address] Deidre TijerinaCreatinine [Mass/Vol]1.17 mg/dLNormal0.70-1.30The [facility] HospitalComment on above:Performed By: #### POCGLUC #### [facility] [address] [place] [address] Dr. Jiang ChangEGFR-AF BRITISH>60Normal>=60The [facility] HospitalComment on above:Performed By: #### POCGLUC #### [facility] [address] [address] [address] Deidre BrookeGFR-NON AF KVCGYFEJ73 mL/min/1.25d8Brtnfk>=60The [facility] HospitalComment on above:Performed By: #### POCGLUC #### [facility] [address] [address] [address] Deidre TijerinaGlucose [Mass/Vol]145 mg/dLCritically homu44-147Tdo [facility] HospitalComment on above:Performed By: #### POCGLUC #### [facility] [address] [address] [address] Deidre TijerinaPotassium [Moles/Vol]3.9 mmol/LNormal3.5-5.1The [facility] Comment on above:Performed By: #### POCGLUC #### [facility] [address] [place] [address] Dr. Deidre TijerinaSodium [Moles/Vol]131 mmol/LCritically hlg503-476Adn [facility] HospitalComment on above:Performed By: #### POCGLUC #### [facility] [address] [place] [address] Dr. Deidre Verdin nitrogen [Mass/Vol]37.0 mg/dLCritically high7.0-18.0The [facility] HospitalComment on above:Performed By: #### POCGLUC #### [facility] [address] [place] [address] Dr. Deidre Verdin nitrogen/Creatinine [Mass ratio]31.6 mg/mgNoBrecksville VA / Crille HospitalComment on above:Performed By: #### POCGLUC #### [facility] [address] [place] [address] Dr. Deidre TijerinaXR CHEST 1 Von 44-29-8966II CHEST 1 VEXAM: XR CHEST 1 V 08/20/2022. COMPARISON: CT [...] deformities are again identified. Electronically authenticated by: [facility] Date: 2022-08-20 13:26[facility] Medical CenterBNRiver Falls Area Hospital 23-63-8379Aymnmdmzchf peptide B (Bld) [Mass/Vol]955.0 pg/mLNormal<=1,800.0The [facility] HospitalComment on above:Performed By: #### CBC #### [facility] [address] [place] [address] Dr. Deidre TijerinaCBC W MANUAL DIFFon 19-96-7548BFTBFUVU LYMPH #0.28 103/ulNormal The [facility] HospitalComment on above:Performed By: #### POCGLUC #### [facility] [address] [place] [address] Dr. Deidre Colin LYMPH %2 %NormalThe Cave City HospitalComment on above: Performed By: #### POCGLUC #### [facility] [address] [place] [address] Dr. Deidre Gibson #0.0 103/ulNormal0.0-0.3The [facility] HospitalComment on above:Performed By: #### POCGLUC #### [facility] [address] [place] [address] Dr. Deidre Gibson %0 %Normal0-5The [facility] HospitalComment on above:Performed By: #### POCGLUC #### [facility] [address] [place] [address] Dr. Deidre Schaffer #0.00 103/ulNormal0.00-0.10The [facility] HospitalComment on above:Performed By: #### POCGLUC #### [facility] [address] [place] [address] Dr. Deidre Schaffer %0.0 %Critically low0.2-2.0The [facility] HospitalComment on above:Performed By: #### POCGLUC #### [facility] [address] [place] [address] Dr. Deidre Payne #NormalThe [facility] HospitalComment on above:Performed By: #### POCGLUC #### [facility] [address] [place] [address] Dr. Deidre Payne %NormalThe [facility] HospitalComment on above:Performed By: #### POCGLUC #### [facility] [address] [place] [address] Dr. Deidre PabloRRECTED WBCNormal4.0-11.0The [facility] HospitalComment on above: Performed By: #### POCGLUC #### [facility] [address] [place] [address] Dr. Deidre Andrade #0.00 103/ulNormal0.00-0.70The [facility] HospitalComment on above:Performed By: #### POCGLUC #### [facility] [address] [place] [address] Dr. Deidre Andrade%0.0 %Critically low0.9-7.0The [facility] HospitalComment on above:Performed By: #### POCGLUC #### [facility] [address] [address] [address] Deidre ColónT30.4 %Critically low42.0-54.0The [facility] HospitalComment on above:Performed By: #### POCGLUC #### [facility] [address] [address] [address] Deidre TijerinaB9.8 g/dlCritically low14.0-18.0The [facility] HospitalComment on above:Performed By: #### POCGLUC #### [facility] [address] [address] [address] Deidre Ceballos #0.43 103/ulCritically low1.20-3.80The [facility] Comment on above:Performed By: #### POCGLUC #### [facility] [address] [address] [address] Deidre Ceballos%3.0 %Critically low20.5-60.0The [facility] HospitalComment on above:Performed By: #### POCGLUC #### [facility] [address] [address] [address] Deidre McbrideH30.8 yyDdhool54.9-34.0The [facility] HospitalComment on above: Performed By: #### POCGLUC #### [facility] [address] [address] [address] Deidre McbrideHC32.2 g/lcIvvpkw75.9-35.2The [facility] HospitalComment on above:Performed By: #### POCGLUC #### [facility] [address] [place] [address] Dr. Deidre McbrideV95.6 fLCritically high80.0-94.0The [facility] HospitalComment on above:Performed By: #### POCGLUC #### [facility] [address] [address] [address] Deidre AlejandroENCOMPASS HEALTH REHABILITATION HOSPITAL OF DOTHANELOCYTE #NormalDayton Children'S HospitalComment on above: Performed By: #### POCGLUC #### [facility] [address] [address] [address] Deidre AlejandroAMYELOCYTE %NormalDayton Children'S HospitalComment on above: Performed By: #### POCGLUC #### [facility] [address] [address] [address] Deidre Carcamo#0.57 103/ulNormal0.30-0.80The [facility] HospitalComment on above:Performed By: #### POCGLUC #### [facility] [address] [address] [address] Deidre Carcamo%4.0 %Normal1.7-12.0The [facility] on above: Performed By: #### POCGLUC #### [facility] [address] [place] [address] Dr. Deidre UnderwoodV9.1 fLCritically low9.5-13.5The [facility] HospitalComment on above:Performed By: #### POCGLUC #### [facility] [address] [address] [address] Deidre Anderson #NormalDayton Children'S HospitalCombronson [facility] on above:Performed By: #### POCGLUC #### [facility] [address] [place] [address] Dr. Deidre MullinsOCYTE %NormalDayton Children'S HospitalCombronson battle creek hospital on above:Performed By: #### POCGLUC #### [facility] [address] [place] [address] Dr. Deidre TijerinaNRBCNormalThe [facility] HospitalComment on above:Performed By: #### POCGLUC #### [facility] [address] [address] [address] Deidre TijerinaPLT188 103/iqApprjl712-065Ibz [facility] HospitalComment on above: Performed By: #### POCGLUC #### [facility] [address] [place] [address] Dr. Deidre TijerinaRBC3.18 106/ulCritically low4.70-6.10The [facility] HospitalComment on above:Performed By: #### POCGLUC #### [facility] [address] [address] [address] Deidre TijerinaRDW14.0 %Nlbdrr41.0-15.0The [facility] HospitalComment on above: Performed By: #### POCGLUC #### [facility] [address] [address] [address] Deidre Grullon #12.92 103/ulCritically high1.40-6.50The [facility] Comment on above:Performed By: #### POCGLUC #### [facility] [address] [address] [address] Deidre Grullon %91.0 %Critically high43.0-75.0The [facility] HospitalComment on above:Performed By: #### POCGLUC #### [facility] [address] [address] [address] Deidre TijerinaWBC14.2 103/ulCritically high4.0-11.0The [facility] HospitalComment on above:Performed By: #### POCGLUC #### [facility] [address] [address] [address] Deidre TijerinaMILLER COUNTY H[facility] GLUCOSEon 34-69-9760Wrjnbcd [Mass/Vol]305 mg/dL Critically zabh66-207QlbDayton Children'S HospitalComment on above:Performed By: #### POCGLUC #### [facility] [address] [address] [address] Deidre TijerinaGlucose [Mass/Vol]181 mg/dLCritically uiup20-224Gvt [facility] HospitalComment on above:Performed By: #### CBC #### [facility] [address] [address] [address] Deidre TijerinaGlucose [Mass/Vol]342 mg/dLCritically fzlk45-152Blx [facility] HospitalComment on above:Performed By: #### POCGLUC #### [facility] [address] [address] [address] Deidre TijerinaGlucose [Mass/Vol]192 mg/dLCritically hvxi63-643Idz [facility] HospitalComment on above:Performed By: #### POCGLUC #### [facility] [address] [place] [address] Dr. Deidre TijreinaPROF CHEM 8 (BAS METB)on 21-39-8699Gndtb gap [Moles/Vol]10.3 mmol/LNormalThe [facility] HospitalComment on above:Performed By: #### BMP, BNP #### [facility] [address] [place] [address] Dr. Deidre TijerinaCalcium [Mass/Vol]7.9 mg/dLCritically low8.5-10.1The [facility] HospitalComment on above:Performed By: #### BMP, BNP #### [facility] [address] [place] [address] Dr. Deidre TijerinaChloride [Moles/Vol]100 mmol/WFnrido26-460Fdl [facility] Comment on above:Performed By: #### BMP, BNP #### [facility] [address] [place] [address] Dr. Deidre TijerinaCO2 [Moles/Vol]26.6 mmol/JVzwetv82.0-32.0[facility] Comment on above:Performed By: #### BMP, BNP #### [facility] [address] [place] [address] Dr. Deidre TijerinaCreatinine [Mass/Vol]1.29 mg/dLNormal0.70-1.30The [facility] HospitalComment on above:Performed By: #### BMP, BNP #### [facility] [address] [place] [address] Dr. Deidre BrookeGFR-AF BRITISH>60Normal>=60The [facility] HospitalComment on above:Performed By: #### BMP, BNP #### [facility] [address] [place] [address] Dr. Deidre BrookeGFR-NON AF SWPOFPYM89 mL/min/1.39r3Rmsfkqvuxf low>=60The [facility] HospitalComment on above:Performed By: #### BMP, BNP #### [facility] [address] [place] [address] Dr. Deidre TijerinaGlucose [Mass/Vol]190 mg/dLCritically zwfg38-423Duf [facility] HospitalComment on above:Performed By: #### BMP, BNP #### [facility] [address] [place] [address] Dr. Deidre TijerinaPotassium [Moles/Vol]3.9 mmol/LNormal3.5-5.1The [facility] Comment on above:Performed By: #### BMP, BNP #### [facility] [address] [place] [address] Dr. Deidre TijerinaSodium [Moles/Vol]133 mmol/LCritically jzp745-202Itm [facility] HospitalComment on above:Performed By: #### BMP, BNP #### [facility] [address] [place] [address] Dr. Deidre TijerinaUrea nitrogen [Mass/Vol]35.0 mg/dLCritically high7.0-18.0The [facility] HospitalComment on above:Performed By: #### BMP, BNP #### [facility] [address] [place] [address] Dr. Deidre Verdin nitrogen/Creatinine [Mass ratio]27.1 mg/mgNoBrecksville VA / Crille HospitalComment on above:Performed By: #### BMP, BNP #### [facility] [address] [place] [address] Dr. Deidre TijerinaBILIRUBIN CONJUGATED (DIRECT)on 86-28-7416TJZJ, CONJUGATED0.4 mg/dLCritically high0.0-0.2The [facility] HospitalComment on above:Performed By: #### POCGLUC #### [facility] [address] [place] [address] Dr. Deidre Dowling GASES BTYon MODEBIPAPNormalThe [facility] HospitalComment on above:Performed By: #### POCGLUC #### [facility] [address] [place] [address] Dr. Deidre Rascon TESTPositiveNoBrecksville VA / Crille HospitalComment on above: Performed By: #### POCGLUC #### [facility] [address] [place] [address] Dr. Deidre Frausto excess Calc (Bld) [Moles/Vol]1.0 mmol/LNormal-2.0-2.0The [facility] HospitalComment on above:Performed By: #### POCGLUC #### [facility] [address] [place] [address] Dr. Deidre BarkerP ODLNDYCC97/8[facility]ria Medical CenterComment on above: Performed By: #### POCGLUC #### [facility] [address] [place] [address] Dr. Deidre TijerinaCPAPUniversity Hospitals Elyria Medical CenterComment on above:Performed By: #### POCGLUC #### [facility] [address] [place] [address] Dr. Deidre TijerinaFIO235.00 %NormalThe [facility] HospitalComment on above:Performed By: #### POCGLUC #### [facility] [address] [place] [address] Dr. Deidre TijerinaHCO3 (Bld) [Moles/Vol]25.0 mmol/WZwynae59.0-26.0The [facility] HospitalComment on above:Performed By: #### POCGLUC #### [facility] [address] [place] [address] Dr. Deidre TijerinaLPMNormalThe [facility] HospitalCombronson battle creek hospital on above:Performed By: #### POCGLUC #### [facility] [address] [place] [address] Dr. Deidre TijerinaMINUTE JVAGWD02 LNormalThe [facility] HospitalComment on above: Performed By: #### POCGLUC #### [facility] [address] [place] [address] Dr. Deidre TijerinaOxygen (Bld) [Partial pressure]83.4 mm[Hg]Tdardg19.0-100.0The [facility] HospitalComment on above:Performed By: #### POCGLUC #### [facility] [address] [place] [address] Dr. Deidre TijerinaOxygen saturation in Blood97.5 %Otsbzj08.0-100.0The [facility] HospitalComment on above:Performed By: #### POCGLUC #### [facility] [address] [address] [address] Deidre LeoO236.2 wqSyRyhdqp71.0-45.0The [facility] on above:Performed By: #### POCGLUC #### [facility] [address] [address] [address] Deidre LastLnkrnNTQG6QfqydaSgf[address] [place], [place] [address] on above:Performed By: #### POCGLUC #### [facility] [address] [address] [address] Deidre Gilmore (Bld)7.440 [pH]Normal7.350-7.450The [facility] on above:Performed By: #### POCGLUC #### [facility] [address] [place] [address] Dr. Deidre GarciaUqswjJXN84PhdrstUim32 Gordon StreetCombronson battle creek hospital on above:Performed By: #### POCGLUC #### [facility] [address] [address] [address] Deidre TijerinaLxixzVD7QnufmlXcc63 Arnold StreetCombronson battle creek hospital on above:Performed By: #### POCGLUC #### [facility] [address] [place] [address] Dr. Deidre WorthingtonUC Medical CenterCombronson [facility] hospital on above: Performed By: #### POCGLUC #### [facility] [address] [place] [address] Dr. De[address] Q[address]ada[address] [place] [address] on above:Performed By: #### POCGLUC #### [facility] [address] [place] [address] Dr. Deidre TijerinaParkview Health Montpelier HospitalCombronson [facility] hospital on above:Performed By: #### POCGLUC #### [facility] [address] [address] [address] Deidre Crow945 MLNormalThe [facility] HospitalCombronson [facility] hospital on above:Performed By: #### POCGLUC #### [facility] [address] [place] [address] Dr. Deidre Chaudhari 45-74-4226Tagoozwjght peptide B (Bld) [Mass/Vol]2561.0 pg/mLCritically high<=1,800.0The [facility] HospitalComment on above:Performed By: #### POCGLUC #### [facility] [address] [address] [address] Deidre Garcia W MANUAL DIFFon 28-90-8916WONJAZGTSQWA5+NormalThe [facility] HospitalComment on above:Performed By: #### JUAN #### [facility] [address] [address] [address] Deidre Colin LYMPH #NormalThe [facility] HospitalComment on above: Performed By: #### JUAN #### [facility] [address] [address] [address] Deidre Colin LYMPH %NormalThe [facility] HospitalComment on above: Performed By: #### JUAN #### [facility] [address] [address] [address] Deidre Gibson #1.2 103/ulCritically high0.0-0.3The [facility] Comment on above:Performed By: #### JUAN #### [facility] [address] [address] [address] Deidre Gibson %7 %Critically high0-5The [facility] HospitalComment on above: Performed By: #### JUAN #### [facility] [address] [address] [address] Deidre Schaffer #0.00 103/ulNormal0.00-0.10The [facility] HospitalComment on above:Performed By: #### JUAN #### [facility] [address] [address] [address] Deidre Schaffer %0.0 %Critically low0.2-2.0The [facility] HospitalComment on above:Performed By: #### JUAN #### [facility] [address] [address] [address] Deidre Payne #NormalThe [facility] HospitalComment on above:Performed By: #### JUAN #### [facility] [address] [place] [address] Dr. Deidre TijerinaBLAST %NormalThe [facility] HospitalCombronson [facility] hospital on above:Performed By: #### JUAN #### [facility] [address] [place] [address] Dr. Deidre TijerinaCORRECTED WBCNormal4.0-11.0The [facility] HospitalComment on above: Performed By: #### JUAN #### [facility] [address] [place] [address] Dr. Deidre Andrade #0.17 103/ulNormal0.00-0.70The [facility] HospitalComment on above:Performed By: #### JUAN #### [facility] [address] [place] [address] Dr. Deidre Andrade%1.0 %Normal0.9-7.0The [facility] HospitalComment on above: Performed By: #### JUAN #### [facility] [address] [place] [address] Dr. Deidre TijerinaHCT34.8 %Critically low42.0-54.0The [facility] HospitalComment on above:Performed By: #### JUAN #### [facility] [address] [place] [address] Dr. Deidre TijerinaHGB11.5 g/dlCritically low14.0-18.0The [facility] HospitalCombronson [facility] hospital on above:Performed By: #### JUAN #### [facility] [address] [place] [address] Dr. Deidre Ceballos #1.20 103/ulNormal1.20-3.80The [facility] HospitalCombr[facility] on above:Performed By: #### JUAN #### [facility] [address] [place] [address] Dr. Deidre Ceballos%7.0 %Critically low20.5-60.0The [facility] HospitalComment on above:Performed By: #### JUAN #### [facility] [address] [place] [address] Dr. Deidre TijerinaMCH31.5 fxOrartr73.9-34.0The [facility] HospitalComment on above: Performed By: #### JUAN #### [facility] [address] [address] [address] Deidre McbrideHC33.0 g/ipJpfpit45.9-35.2The [facility] HospitalComment on above:Performed By: #### JUAN #### [facility] [address] [address] [address] Deidre McbrideV95.3 fLCritically high80.0-94.0The [facility] HospitalComment on above:Performed By: #### JUAN #### [facility] [address] [place] [address] Dr. Deidre Mcelroy #NormalThe [facility] HospitalComment on above: Performed By: #### JUAN #### [facility] [address] [place] [address] Dr. Deidre MarieOCYTE %NormalThe [facility] HospitalComment on above: Performed By: #### JUAN #### [facility] [address] [place] [address] Dr. Deidre Carcamo#1.03 103/ulCritically high0.30-0.80The [facility] on above:Performed By: #### JUAN #### [facility] [address] [place] [address] Dr. Deidre Carcamo%6.0 %Normal1.7-12.0The [facility] HospitalComment on above: Performed By: #### JUAN #### [facility] [address] [place] [address] Dr. Deidre UnderwoodV8.7 fLCritically low9.5-13.5The [facility] HospitalComment on above:Performed By: #### CBCNICOLASA #### [facility] [address] [place] [address] Dr. Deidre Anderson #NormalThe [facility] HospitalComment on above:Performed By: #### JUAN #### [facility] [address] [place] [address] Dr. Deidre CedilloELOCYTE %NormalThe [facility] HospitalComment on above:Performed By: #### CBCNICOLASA #### [facility] [address] [address] [address] Deidre AnguianoBCNormalThCentervilleComment on above:Performed By: #### CBCNICOLASA #### [facility] [address] [address] [address] Deidre WeemsT212 103/lkNemkth090-822Umd [facility] HospitalComment on above: Performed By: #### CBCNICOLASA #### [facility] [address] [address] [address] Deidre TijerinaRBC3.65 106/ulCritically low4.70-6.10The [facility] HospitalComment on above:Performed By: #### JUAN #### [facility] [address] [address] [address] Deidre HuizarW14.0 %Kaebdn36.0-15.0The [facility] HospitalComment on above: Performed By: #### JUAN #### [facility] [address] [address] [address] Deidre Grullon #13.59 103/ulCritically high1.40-6.50The [facility] on above:Performed By: #### JUAN #### [facility] [address] [address] [address] Deidre Grullon %79.0 %Critically high43.0-75.0The [facility] HospitalComment on above:Performed By: #### CBCNICOLASA #### [facility] [address] [address] [address] Deidre StraksBC17.2 103/ulCritically high4.0-11.0The [facility] HospitalComment on above:Performed By: #### CBCMAN #### [facility] [address] [address] [address] Deidre TijerinaCT CHEST WO CONon [id number] CHEST WO CONEXAMINATION: CT CHEST WO CON HISTORY: SHORTNESS OF BREATH increasing [...] Electronically authenticated by: NOREEN KELLY Date: 2022-08-18 12:12NoBrecksville VA / Crille HospitalCULTURE BLOODon [id number] examination of blood, cultureCulture Observations: NO GROWTH AT 5 DAYS.NormalDayton Children'S HospitalComment on above:Performed By: #### CBC #### [facility] [address] [address] [address] Deidre TijerinaMicroscopic examination of blood, cultureCulture Observations: NO GROWTH AT 5 DAYS.NormalDayton Children'S HospitalComment on above:Performed By: #### CBC #### [facility] [address] [address] [address] Deidre TijerinaCovid-19 PCR (CVDTB)on 16-27-3069IOHJ-CoV-2 (COVID-19) RNA ISA+probe Ql (Unsp spec)Not detectedNormalNOT DETECTEDDayton Children'S Hospital Comment on above:Result Comment: When diagnostic testing is negative, the [...] for this test is supported by the [place] Health and [place] Service's declaration that circumstances exist to justify the emergency use of in vitro diagnostics for the detection and/or diagnosis of the virus that causes COVID-19. This EUA will remain in effect for the duration of the COVID-19 declaration justifying emergency of IVDs, unless it is terminated or revoked by the FDA (after which the test may no longer be used).Performed By: #### POCGLUC #### [facility] [address] [address] [address] Deidre Bhatti LIMITED STUDYon [id number] LIMITED STUDYPatient: RICHARARIANNE Exam Date: 08/18/2022 : 1945 Gender:M Ordering : SHAIKH Zay CARRERA . Admission #: [id number] Family : Order #: [id number] CLICK HERE TO VIEW EXAM ECHOCARDIOGRAM REPORT [...] by: Ariella Leonard M.D. on 08/26/2022 at 09:00[facility] Medical CenterINFLUENZA A AND B AGon [id number] [facility] HospitalCom[facility] on above:Result Comment: Negative for Flu A protein angiten. Infection due to Flu A cannot be ruled out. FluA angiten in the sample may be below the detection limit of the test.Performed By: #### POCGLUC #### [facility] [address] [place] [address] Dr. Deidre PortilloSILVIO [facility] on above: Result Comment: Negative for Flu B protein antigen. Infection due to Flu B cannot be ruled out. FluB antigen in the sample may be below the detection limit of the test.Performed By: #### POCGLUC #### [facility] [address] [place] [address] Dr. Deidre Desai AGNegativeNormalNEGATIVE SEE COMMENTThe [facility] on above:Performed By: #### POCGLUC #### [facility] [address] [place] [address] Dr. Deidre Rasheed AGNegativeNormalNEGATIVE SEE COMMENTThe [facility] on above:Performed By: #### POCGLUC #### [facility] [address] [address] [address] Deidre TijerinaINTERNAL CONTROLSWithin Normal LimitsNormalWithin Normal Limits The [facility] HospitalComment on above:Performed By: #### POCGLUC #### [facility] [address] [place] [address] Dr. Deidre TijerinaLACTATE/LACTIC ACIDon [id number] [Moles/Vol]2.0 mmol/L Critically high0.4-1.9The [facility] HospitalComment on above:Performed By: #### POCGLUC #### [facility] [address] [place] [address] Dr. Deidre TijerinaLactate [Moles/Vol]2.0 mmol/LCritically high0.4-1.9The [facility] HospitalComment on above:Performed By: #### POCGLUC #### [facility] [address] [place] [address] Dr. Deidre TijerinaPOINT OF CARE GLUCOSEon 34-10-3574Pbroltb [Mass/Vol]228 mg/dL Critically aexy92-057Yqu [facility] HospitalComment on above:Performed By: #### POCGLUC #### [facility] [address] [address] [address] Deidre TijerinaGlucose [Mass/Vol]119 mg/dLCritically ebar15-889Ujx [facility] HospitalComment on above:Performed By: #### POCGLUC #### [facility] [address] [place] [address] Dr. Deidre TijerinaGlucose [Mass/Vol]161 mg/dLCritically cvhh56-632BazDayton Children'S HospitalComment on above:Performed By: #### CBC #### [facility] [address] [place] [address] Dr. Deidre TijerinaPROF 14(COMP METB)on 41-10-9460Ppkacer [Mass/Vol]2.9 g/dL Critically low3.4-5.0Dayton Children'S HospitalComment on above:Performed By: #### POCGLUC #### [facility] [address] [place] [address] Dr. Deidre TijerinaAlbumin/Globulin [Mass ratio]0.6 {ratio}NormalThe [facility] HospitalComment on above:Performed By: #### POCGLUC #### [facility] [address] [place] [address] Dr. Deidre Jenkins [Catalytic activity/Vol]71 U/WAdazyr72-574Big [facility] HospitalComment on above:Performed By: #### POCGLUC #### [facility] [address] [address] [address] Deidre Domingo [Catalytic activity/Vol]13 U/LCritically uyg84-32Gls [facility] HospitalComment on above:Performed By: #### POCGLUC #### [facility] [address] [place] [address] Dr. Deidre Jackson gap [Moles/Vol]12.3 mmol/LNormalThe [facility] Comment on above:Performed By: #### POCGLUC #### [facility] [address] [place] [address] Dr. Deidre TijerinaAST [Catalytic activity/Vol]14 U/LCritically cno83-70Hcd [facility] HospitalComment on above:Performed By: #### POCGLUC #### [facility] [address] [place] [address] Dr. Deidre TijerinaBilirubin [Mass/Vol]2.6 mg/dLCritically high0.2-1.0The [facility] HospitalComment on above:Performed By: #### POCGLUC #### [facility] [address] [place] [address] Dr. Deidre TijerinaCalcium [Mass/Vol]8.5 mg/dLNormal8.5-10.1[facility] Comment on above:Performed By: #### POCGLUC #### [facility] [address] [place] [address] Dr. Deidre TijerinaChloride [Moles/Vol]98 mmol/MAygebo52-880Ibg [facility] Comment on above:Performed By: #### POCGLUC #### [facility] [address] [place] [address] Dr. Deidre TijerinaCO2 [Moles/Vol]26.0 mmol/PLldelr06.0-32.0The [facility] Comment on above:Performed By: #### POCGLUC #### [facility] [address] [place] [address] Dr. Deidre Galvezatinine [Mass/Vol]1.43 mg/dLCritically high0.70-1.30The [facility] HospitalComment on above:Performed By: #### POCGLUC #### [facility] [address] [place] [address] Dr. Deidre BrookeGFR-AF GOQPLQBH20 mL/min/1.37j4Mydkplygfg low>=60The [facility] HospitalComment on above:Performed By: #### POCGLUC #### [facility] [address] [place] [address] Dr. Deidre BrookeGFR-NON AF VLAHAVVH41 mL/min/1.65m5Ohyobmzsqd low>=60The [facility] HospitalComment on above:Performed By: #### POCGLUC #### [facility] [address] [place] [address] Dr. Deidre TijerinaGlobulin (S) [Mass/Vol]5.0 g/dLNormalThCentervilleComment on above:Performed By: #### POCGLUC #### [facility] [address] [place] [address] Dr. Deidre TijerinaGlucose [Mass/Vol]165 mg/dLCritically wvsi65-275Gyl [facility] HospitalComment on above:Performed By: #### POCGLUC #### [facility] [address] [place] [address] Dr. Deidre TijerinaPotassium [Moles/Vol]4.3 mmol/LNormal3.5-5.1The [facility] Comment on above:Performed By: #### POCGLUC #### [facility] [address] [place] [address] Dr. Deidre TijerinaProtein [Mass/Vol]7.9 g/dLNormal6.4-8.2The [facility] Comment on above:Performed By: #### POCGLUC #### [facility] [address] [place] [address] Dr. Yilan ChangSodium [Moles/Vol]132 mmol/LCritically ijo377-791Zuj [facility] HospitalComment on above:Performed By: #### POCGLUC #### [facility] [address] [address] [address] Deidre Verdin nitrogen [Mass/Vol]25.0 mg/dLCritically high7.0-18.0The [facility] HospitalComment on above:Performed By: #### POCGLUC #### [facility] [address] [address] [address] Deidre TijerinaUrea nitrogen/Creatinine [Mass ratio]17.5 mg/mgNormalThCentervilleComment on above:Performed By: #### POCGLUC #### [facility] [address] [place] [address] Dr. Deidre Burkett, HIGH SENSITIVITYon 88-03-0659UCAGMK1.4 pg/mLNormal 4.0-76.1The [facility] HospitalComment on above:Result Comment: CUT-OFF POINTS HAVE BEEN ESTABLISHED BASED ON THE FOURTH UNIVERSAL DEFINITIONS OF MYOCARDIAL INFARCTION. THE UPPER REFERENCE LIMIT (URL) OF TROPONIN, DEFINED THE 99TH PERCENTILE OF cTnI DISTRIBUTION IN A REFERENCE POPULATION, HAS BEEN CONFIRMED THE DECISION THRESHOLD FOR OK DIAGNOSIS.Performed By: #### POCGLUC #### [facility] [address] [place] [address] Dr. Deidre TijerinaXR CHEST 1 Von [id number] CHEST 1 VEXAM: XR CHEST 1 V 08/18/2022 COMPARISON STUDY: [...] left costophrenic angle is excluded from the fgbui-vo-cisx. 3. No overt edema, failure, pneumothorax, or sizable effusion noted within limits of study. 4. Old healed nondisplaced anterior right fifth rib fracture deformity faintly suggested. Electronically authenticated by: ESTUARDO ABEBE Date: 2022-08-18 09:37[facility] STRESS/REST MULTIon 37-77-1805VU STRESS/REST MULTIPatient: ARIANNE MCQUEENFrancine Exam Date: 08/04/2022 : 1945 Gender:M Ordering : DR CATINA HEARN M.D. Admission #: [id number] Family : Order #: [id number] CLICK HERE TO VIEW EXAM RADIOLOGY REPORT [...] by: Johana Banks MD on 08/07/2022 at 08:29[facility] CenterBNP on 66-91-8413Eaywakjxjnk peptide B (Bld) [Mass/Vol]164.0 pg/mLNormal<=1,800.0The [facility] HospitalComment on above:Performed By: #### BNP, BMP #### [facility] [address] [place] [address] Dr. Deidre TijerinaPROF CHEM 8 (BAS METB)on 84-75-9662Dwpnh gap [Moles/Vol]9.2 mmol/LNormalThe [facility] HospitalComment on above:Performed By: #### BNP, BMP #### [facility] [address] [place] [address] Dr. Deidre TijerinaCalcium [Mass/Vol]8.4 mg/dLCritically low8.5-10.1The [facility] HospitalComment on above:Performed By: #### BNP, BMP #### [facility] [address] [place] [address] Dr. Deidre TijerinaChloride [Moles/Vol]106 mmol/SSnkrah98-601Bdk [facility] Comment on above:Performed By: #### BNP, BMP #### [facility] [address] [place] [address] Dr. Deidre TijerinaCO2 [Moles/Vol]27.0 mmol/IMcdivr79.0-32.0The [facility] Comment on above:Performed By: #### BNP, BMP #### [facility] [address] [place] [address] Dr. Deidre TijerinaCreatinine [Mass/Vol]1.38 mg/dLCritically high0.70-1.30The [facility] HospitalComment on above:Performed By: #### BNP, BMP #### [facility] [address] [place] [address] Dr. Deidre BrookeGFR-AF BRITISH=60Normal>=60The [facility] HospitalComment on above:Performed By: #### BNP, BMP #### [facility] [address] [place] [address] Dr. Deidre BrookeGFR-NON AF DXYSVHGF34 mL/min/1.65d4Fskzngejiy low>=60The [facility] HospitalComment on above:Performed By: #### BNP, BMP #### [facility] [address] [place] [address] Dr. Deidre TijerinaGlucose [Mass/Vol]95 mg/lVGwrumx13-348ZqcDayton [facility] Comment on above:Performed By: #### BNP, BMP #### [facility] [address] [address] [address] Deidre TijerinaPotassium [Moles/Vol]5.2 mmol/LCritically high3.5-5.1Day[facility] Children'S HospitalComment on above:Performed By: #### BNP, BMP #### [facility] [address] [place] [address] Dr. Deidre TijerinaSodium [Moles/Vol]137 mmol/SPvlzcy989-596BhsDayton Children'S Hospital Comment on above:Performed By: #### BNP, BMP #### [facility] [address] [place] [address] Dr. Deidre TijerinaUrea nitrogen [Mass/Vol]25.0 mg/dLCritically high7.0-18.0The [facility] HospitalComment on above:Performed By: #### BNP, BMP #### [facility] [address] [place] [address] Dr. Deidre Verdin nitrogen/Creatinine [Mass ratio]18.1 mg/mgNormalThe [facility] HospitalComment on above:Performed By: #### BNP, BMP #### [facility] [address] [place] [address] Dr. Deidre BrookeCHOCARVALORIE M/2D COMPLETEon 67-21-0406IUWRBKHHFS M/2D COMPLETE Patient: ARIANNE MCQUEEN Exam Date: 05/08/2022 : 1945 Gender:M Ordering : DR CATINA HEARN M.D. Admission #: [id number] Family : DR MAL BARNES DFrancineOFrancine Order #: [id number] CLICK HERE TO VIEW EXAM ECHOCARDIOGRAM REPORT [...] by: Catina Hearn M.D. on 05/09/2022 at 19:48[facility] CenterXR LSPINE MIN 4 VIEWSon 60-99-2031ES LSPINE MIN 4 VIEWSEXAMINATION: XR LSPINE MIN 4 VIEWS HISTORY: Pain [...] Electronically authenticated by: NOREEN KELLY Date: 2022-05-08 10:47[facility] CenterPROF CHEM 8 (BAS METB)on 07-37-1337Hwggm gap [Moles/Vol]6.8 mmol/LNormalDayton Children'S HospitalComment on above:Performed By: #### POCGLUC #### [facility] [address] [address] [address] Deidre TijerinaCalcium [Mass/Vol]8.8 mg/dLNormal8.5-10.1The [facility] Comment on above:Performed By: #### POCGLUC #### [facility] [address] [address] [address] Deidre TijerinaChloride [Moles/Vol]102 mmol/SWadxbz14-857Khc [facility] Comment on above:Performed By: #### POCGLUC #### [facility] [address] [address] [address] Deidre TijerinaCO2 [Moles/Vol]28.1 mmol/IMxousq52.0-32.0The [facility] Comment on above:Performed By: #### POCGLUC #### [facility] [address] [address] [address] Deidre TijeirnaCreatinine [Mass/Vol]1.84 mg/dLCritically high0.70-1.30The [facility] HospitalComment on above:Performed By: #### POCGLUC #### [facility] [address] [address] [address] Deidre BrookeGFR-AF EXKANEHN62 mL/min/1.32c0Thscbaldko low>=60The [facility] HospitalComment on above:Performed By: #### POCGLUC #### [facility] [address] [address] [address] Deidre BrookeGFR-NON AF YEUNWAYS98 mL/min/1.68i5Swpmxorcik low>=60The [facility] HospitalComment on above:Performed By: #### POCGLUC #### [facility] [address] [address] [address] Deidre TijerinaGlucose [Mass/Vol]112 mg/dLCritically dldj15-367Run [facility] HospitalComment on above:Performed By: #### POCGLUC #### [facility] [address] [address] [address] Deidre TijerinaPotassium [Moles/Vol]4.9 mmol/LNormal3.5-5.1The [facility] Comment on above:Performed By: #### POCGLUC #### [facility] [address] [address] [address] Deidre TijerinaSodium [Moles/Vol]132 mmol/LCritically bxw011-869Trh [facility] HospitalComment on above:Performed By: #### POCGLUC #### [facility] [address] [place] [address] Dr. Deidre TijerinaUrea nitrogen [Mass/Vol]40.0 mg/dLCritically high7.0-18.0The [facility] HospitalComment on above:Performed By: #### POCGLUC #### [facility] [address] [place] [address] Dr. Deidre Verdin nitrogen/Creatinine [Mass ratio]21.7 mg/mgNormalThe [facility] HospitalComment on above:Performed By: #### POCGLUC #### [facility] [address] [place] [address] Dr. Deidre TijerinaPROF CHEM 8 (BAS METB)on 96-94-4292Mhmlo gap [Moles/Vol]8.9 mmol/LNormalDayton Children'S HospitalComment on above:Performed By: #### BMP #### [facility] [address] [place] [address] Dr. Deidre TijerinaCalcium [Mass/Vol]8.4 mg/dLCritically low8.5-10.1The [facility] HospitalComment on above:Performed By: #### BMP #### [facility] [address] [place] [address] Dr. Deidre TijerinaChloride [Moles/Vol]102 mmol/JLvqfuh09-109Aop [facility] Comment on above:Performed By: #### BMP #### [facility] [address] [place] [address] Dr. Deidre TijerinaCO2 [Moles/Vol]25.9 mmol/CKgfetp65.0-32.0The [facility] Comment on above:Performed By: #### BMP #### [facility] [address] [place] [address] Dr. Yilan ChangCreatinine [Mass/Vol]1.20 mg/dLNormal0.70-1.30The [facility] HospitalComment on above:Performed By: #### BMP #### [facility] [address] [place] [address] Dr. Deidre BrookeGFR-AF BRITISH>60Normal>=60The [facility] HospitalComment on above:Performed By: #### BMP #### [facility] [address] [address] [address] Deidre BrookeGFR-NON AF PNPZBQFB63 mL/min/1.09r6Skyftjylmw low>=60The [facility] HospitalComment on above:Performed By: #### BMP #### [facility] [address] [place] [address] Dr. Deidre TijerinaGlucose [Mass/Vol]117 mg/dLCritically clcb33-062Txx [facility] HospitalComment on above:Performed By: #### BMP #### [facility] [address] [place] [address] Dr. Deidre TijerinaPotassium [Moles/Vol]4.8 mmol/LNormal3.5-5.1The [facility] Comment on above:Performed By: #### BMP #### [facility] [address] [place] [address] Dr. Deidre TijerinaSodium [Moles/Vol]132 mmol/LCritically wkd068-544Enx [facility] HospitalComment on above:Performed By: #### BMP #### [facility] [address] [place] [address] Dr. Deidre TijerinaUrea nitrogen [Mass/Vol]25.0 mg/dLCritically high7.0-18.0The [facility] HospitalComment on above:Performed By: #### BMP #### [facility] [address] [place] [address] Dr. Deidre Verdin nitrogen/Creatinine [Mass ratio]20.8 mg/mgNormalThe [facility] HospitalComment on above:Performed By: #### BMP #### [facility] [address] [place] [address] Dr. Deidre Alva CHESTon [id number] CHESTNoUC Medical CenterComment on above:Order Comment: seroma in the chest needs a drain placedBASIC METABOLIC PANELon 86-73-7722Ajmwerb [Mass/Vol]8.4 mg/dLLow8.6-10.3 The [facility] MiamisburgComment on above:Order Comment: this is not a nurse draw. lab draw pleaseNo: Do not add to previous drawPerformed By: #### [id number] ####[facility] [place] [address], USAChloride [Moles/Vol]102 mmol/ZQipwbh83-719Jam [facility] MiamisburgComment on above:Order Comment: this is not a nurse draw. lab draw pleaseNo: Do not add to previous drawPerformed By: #### [id number] ####[facility] [place] [address], USACO2 [Moles/Vol]25 mmol/JIpwova74-87Ikp [facility] MiamisburgComment on above:Order Comment: this is not a nurse draw. lab draw pleaseNo: Do not add to previous drawPerformed By: #### [id number] ####[facility] [place] [address], USACreatinine [Mass/Vol]2.56 mg/dLHigh0.70-1.30 The [facility] MiamisburgComment on above:Order Comment: this is not a nurse draw. lab draw pleaseNo: Do not add to previous drawPerformed By: #### [id number] ####[facility] [place] [address], USAeGFR- Xoewthxv05 ml/min/1.73sq mAbnormal>60The [facility] MiamisburgComment on above:Order Comment: this is not a nurse draw. lab draw pleaseNo: Do not add to previous drawResult Comment: Calculation may not be valid for patients over 70 yearsPerformed By: #### [id number] ####[facility] [place] [address], USAeGFR- non- Nownugpc26 ml/min/1.73sq mAbnormal>60The [facility] MiamisburgComment on above:Order Comment: this is not a nurse draw. lab draw pleaseNo: Do not add to previous drawResult Comment: Calculation may not be valid for patients over 70 yearsPerformed By: #### [id number] ####[facility] [place] [address], USAGlucose [Mass/Vol] 182 mg/pRJmer90-210Ipr [facility]amisburgComment on above:Order Comment: this is not a nurse draw. lab draw pleaseNo: Do not add to previous drawPerformed By: #### [id number] ####[facility] [place] [address], USAPotassium [Moles/Vol]4.5 mmol/LNormal3.5-5.1 The [facility] MiamisburgComment on above:Order Comment: this is not a nurse draw. lab draw pleaseNo: Do not add to previous drawPerformed By: #### [id number] ####[facility] [place] [address], USASodium [Moles/Vol]133 mmol/SDio310-807Ywq [facility]amisburgComment on above:Order Comment: this is not a nurse draw. lab draw pleaseNo: Do not add to previous drawPerformed By: #### [id number] ####[facility] [place] [address], USAUrea nitrogen [Mass/Vol]28 mg/dLHigh7-25The [facility] MiamisburgComment on above:Order Comment: this is not a nurse draw. lab draw pleaseNo: Do not add to previous drawPerformed By: #### [id number] ####[facility] [place] [address], USAPOC GLUCOSE LABon 06-02-2021 Glucose [Mass/Vol]246 mg/hMFsaa69-151Ahv [facility] Comment on above:Performed By: #### [id number] ####[facility] [place] [address], [facility] HEALTH CENTERGlucose [Mass/Vol]109 mg/dLHigh 70-100The [facility] MiamisburgComment on above:Performed By: #### [id number] ####[facility] [place] [address], [facility] HEALTH CENTERPOC SARS COV2 ANTIGEN NEGATIVEon 82-65-5311FZV SARS COV2 ANTIGEN NEG NegativeNormalNEGATIVEThe [facility] MiamisburgComment on above: Result Comment: Negative results from patients with symptom onset beyond [...] presence of clinicalsigns and symptoms consistent with COVID- 19.The [employer] Drop COVID-19 Ag Card is a lateral flow immunoassay intended forthe qualitative detection of nucleocapsid protein antigen czbrIRAM-ZkB-8 in direct nasal swabs from individuals within [...] of Waiver, Certificate of Compliance, or Certificate ofAccreditation.Performed By: #### [id number] ####[facility] [place] [address], [facility] CENTERPO SARS COV2 ANTIGEN NEG NegativeNormalNEGATIVEThe [facility] MiamisburgComment on above: Result Comment: Negative results from patients with symptom onset beyond [...] presence of clinicalsigns and symptoms consistent with COVID- 19.The [employer] COVID-19 Ag Card is a lateral flow immunoassay intended forthe qualitative detection of nucleocapsid protein antigen fawpBXWI-CpC-6 in direct nasal swabs from individuals within [...] of Waiver, Certificate of Compliance, or Certificate ofAccreditation.Performed By: #### [id number] ####[facility] [facility] [place] [address], [facility] GLUCOSE LABon 84-49-7481Jpbdsug [Mass/Vol]142 mg/vFCrbh79-535Civ [facility] MiamisburgComment on above:Performed By: #### [id number] ####[address] [facility] [place] [address], USAGlucose [Mass/Vol]132 mg/dLHigh 70-100The [facility] MiamisburgComment on above:Performed By: #### [id number] ####[facility] [facility] [place] [address], USAGlucose [Mass/Vol]167 mg/iPJqll95-962Kzl [facility]burgComment on above:Performed By: #### 63460 ####[facility] [facility] [place] [address], USAGlucose [Mass/Vol]113 mg/dLHigh 70-100The [facility] MiamisburgComment on above:Performed By: #### [id number] ####[address] [facility] [place] [address], [facility] HEALTH CENTERAPTTon 49-64-2004rWGU Coag (Bld) [Time]29.3 oHbliea70.0-35.0The [facility] MiamisburgComment on above:Result Comment: ALL RESULTS MUST BE INTERPRETED WITH RESPECT TO BLOOD DRAWING ARTIFACTOR DILUTION ERROR OF ANTICOAGULANT AT THE TIME OF SAMPLING.THE APTT SHOULD NOT BE USED TO MONITOR UNFRACTIONATED HEPARIN THERAPY, THIS LABORATORY NO LONGER HAS AN ESTABLISHED THERAPEUTIC RANGE BASEDON THE APTT. IT IS RECOMMENDED THAT THE [facility] - HEPARIN ASSAY (ANTI-XAACTIVITY) BE USED FOR THIS PURPOSE.Performed By: #### [id number], [id number] ####[address] [place] [address], [facility] CBC W/DIFFon 28-58-9243DFJ IMM GRANS0.1 10*3/uLNormal0.0-0.2The [facility] MiamisburgComment on above:Order Comment: No: Do not add to previous drawPerformed By: #### [id number] ####[address] [place] [address], USAABS NEUTROPHILS4.9 10*3/uLNormal1.6-7.6The [facility] MiamisburgCombronson battle creek hospital on above:Order Comment: No: Do not add to previous drawPerformed By: #### [id number] ####[address] [place] [address], [facility] HEALTH CENTERBasophils (Bld) [#/Vol]0.1 10*3/uL Normal0.0-0.2The [facility] MiamisburgComment on above:Order Comment: No: Do not add to previous drawPerformed By: #### [id number] ####[address] [place] [address], [facility] HE[facility] CENTERBasophils/100 WBC (Bld)0.6 %Normal0.0-1.0The [facility] MiamisburgComment on above:Order Comment: No: Do not add to previous drawPerformed By: #### 52800 ####[facility] [facility] [address], [facility] Eosinophils (Bld) [#/Vol]0.4 10*3/uLNormal0.0-0.5The [facility] MiamisburgComment on above:Order Comment: No: Do not add to previous draw Performed By: #### [id number] ####[facility] [facility] [address], [facility] CENTEREosinophils/100 WBC (Bld)5.3 %Normal0.0-6.0The [facility] MiamisburgComment on above:Order Comment: No: Do not add to previous drawPerformed By: #### [id number] ####[place] [address], [facility] HEALTH CENTERErythrocyte distribution width (RBC) [Ratio]15.7 %High11.5-15.0The [facility] MiamisburgComment on above:Order Comment: No: Do not add to previous drawPerformed By: #### [id number] ####[address] [facility] [place] [address], [facility] Hematocrit (Bld) [Volume fraction]27.6 %Low39.0-50.0The [facility] MiamisburgComment on above:Order Comment: No: Do not add to previous draw Performed By: #### 41951 ####[facility] [place] [address], [facility] HE[facility] CENTERHemoglobin (Bld) [Mass/Vol]8.5 g/dLLow13.0-17.0The [facility] MiamisburgComment on above:Order Comment: No: Do not add to previous drawPerformed By: #### 15321 ####[place] [address], [facility] HEALTH CENTERIMMATURE GRANS1.1 %High0.0-1.0The [facility] MiamisburgComment on above:Order Comment: No: Do not add to previous drawPerformed By: #### 33979 ####[facility] [place] [address], [facility] HE[facility] CENTERLymphocytes (Bld) [#/Vol]1.7 10*3/uLNormal1.2-4.0The [facility] MiamisburgComment on above: Order Comment: No: Do not add to previous drawPerformed By: #### 49185 ####[facility] [place] [address], [facility] Lymphocytes/100 WBC (Bld)21.4 %Qbkstl44.0-45.0The [facility] MiamisburgComment on above:Order Comment: No: Do not add to previous drawPerformed By: #### 83449 ####[facility] [place] [address], [facility] HEALTH CENTERMCH (RBC) [Entitic mass]29.2 stTwgzpi15.0-33.0The [facility] MiamisburgComment on above:Order Comment: No: Do not add to previous drawPerformed By: #### [id number] ####[facility] [id number], [facility] HEALTH CENTERMCHC (RBC) [Mass/Vol]30.8 g/dLLow32.0-35.0The [facility] MiamisburgComment on above:Order Comment: No: Do not add to previous drawPerformed By: #### 38057 ####[facility] [place] [address], [facility] CENTERMCV (RBC) [Entitic vol]94.8 fL Adeuds81.0-98.0The [facility] MiamisburgComment on above:Order Comment: No: Do not add to previous drawPerformed By: #### 70533 ####[facility] [place] [address], USAMonocytes (Bld) [#/Vol]0.8 10*3/uLNormal0.1-1.0The [facility] MiamisburgComment on above:Order Comment: No: Do not add to previous drawPerformed By: #### 68022 ####[facility] [place] [address], [place] MONOS9.7 %Normal5.0-12.0The [facility] MiamisburgComment on above: Order Comment: No: Do not add to previous drawPerformed By: #### 88728 ####[facility] [place] [address], [place] Neutrophils/100 WBC (Bld)61.9 %Zzfdzi06.0-72.0The [facility] MiamisburgComment on above:Order Comment: No: Do not add to previous drawPerformed By: #### [id number] ####[facility] [place] [address], USANucleated RBC/100 WBC (Bld) [Ratio]0 %Normal0-0The [facility] MiamisburgComment on above:Order Comment: No: Do not add to previous drawPerformed By: #### 84634 ####[facility] [place] [address], USAPLAT KCV302 10*3/bGRwwppq200-414Ahy [facility] MiamisburgComment on above:Order Comment: No: Do not add to previous drawPerformed By: #### [id number] ####[facility] [place] [address], USARBC (Bld) [#/Vol]2.91 10*6/uLLow 4.20-5.70The [facility] MiamisburgComment on above:Order Comment: No: Do not add to previous drawPerformed By: #### 13118 ####[facility] [place] [address], USAWBC (Bld) [#/Vol]7.96 10*3/uLNormal4.00-10.60The [facility] MiamisburgComment on above: Order Comment: No: Do not add to previous drawPerformed By: #### 16120 ####[facility] [place] [address], [place] COMP METABOLIC PANELon 39-19-7561Tsmwhkt [Mass/Vol]2.9 g/dLLow3.5-5.7The [facility] MiamisburgComment on above:Order Comment: No: Do not add to previous drawNurse drawPerformed By: #### 50547, 82444 ####[facility] [place] [address], USAALKALINE RRLOPW67 IU/DSmsmjt22-205Eww [facility] MiamisburgComment on above:Order Comment: No: Do not add to previous drawNurse drawPerformed By: #### 52986, 91936 ####[facility] [place] [address], USAALT [Catalytic activity/Vol]9 U/LNormal7-52The [facility] MiamisburgComment on above:Order Comment: No: Do not add to previous drawNurse drawPerformed By: #### 69139, 45192 ####[facility] [place] [address], USAAST [Catalytic activity/Vol]11 U/L Wrh47-68Xns [facility]burgComment on above:Order Comment: No: Do not add to previous drawNurse drawPerformed By: #### 39100, 81534 ####[facility] [place] [address], [place] Bilirubin [Mass/Vol]0.6 mg/dLNormal0.3-1.0The [facility]burgComment on above:Order Comment: No: Do not add to previous drawNurse draw Performed By: #### 94525, 73635 ####[facility] [place] [address], USACalcium [Mass/Vol]8.4 mg/dLLow8.6-10.3The [facility]burgComment on above:Order Comment: No: Do not add to previous drawNurse drawPerformed By: #### 21021, 29116 ####[facility] [place] [address], USAChloride [Moles/Vol]102 mmol/SMdwzgo09-900Rpa [facility]burgComment on above:Order Comment: No: Do not add to previous drawNurse drawPerformed By: #### 36494, 08158 ####[facility] [address], USACO2 [Moles/Vol]27 mmol/YSslwjd64-58Jgx [facility]burgComment on above:Order Comment: No: Do not add to previous drawNurse drawPerformed By: #### 21485, 19059 ####[facility] [address], USACreatinine [Mass/Vol]2.90 mg/dL High0.70-1.30The [facility]burgComment on above:Order Comment: No: Do not add to previous drawNurse drawPerformed By: #### 99617, 80363 ####[facility] [place] [address], USAeGFR- Bmjsfkgz00 ml/min/1.73sq mAbnormal>60The [facility]burgComment on above:Order Comment: No: Do not add to previous drawNurse drawResult Comment: Calculation may not be valid for patients over 70 yearsPerformed By: #### 36764, 49282 ####[facility] [place] [address], USAeGFR- non- Zhzydozt26 ml/min/1.73sq m Abnormal>60The [facility]burgComment on above:Order Comment: No: Do not add to previous drawNurse drawResult Comment: Calculation may not be valid for patients over 70 yearsPerformed By: #### 21001, 86090 ####[facility] [place] [address], [place] Glucose [Mass/Vol]97 mg/yHHuytyg97-321Hnf [facility] Comment on above:Order Comment: No: Do not add to previous drawNurse draw Performed By: #### 26377, 96820 ####[facility] [place] [address], USAPotassium [Moles/Vol]4.4 mmol/LNormal3.5-5.1 The [facility]amisburgComment on above:Order Comment: No: Do not add to previous drawNurse drawPerformed By: #### 67753, 22023 ####[facility] [place] [address], USAProtein [Mass/Vol]6.5 g/dLNormal6.0-8.3The [facility]burgComment on above:Order Comment: No: Do not add to previous drawNurse drawPerformed By: #### 02429, 44207 ####[facility] [place] [address], USASodium [Moles/Vol]134 mmol/CNfp380-830Svl [facility]burgComment on above:Order Comment: No: Do not add to previous drawNurse drawPerformed By: #### 52706, 19413 ####[facility] [place] [address], USAUrea nitrogen [Mass/Vol]31 mg/dL High7-25The [facility]burgComment on above:Order Comment: No: Do not add to previous drawNurse drawPerformed By: #### 89100, 09790 ####[facility] [place] [address], [place] MAGNESIUM BLOODon 06-07-5800Hegjdutxt [Mass/Vol]1.8 mg/dLLow1.9-2.7The [facility]burgComment on above:Performed By: #### 62106, 25631 ####[facility] [place] [address], [place]APOC GLUCOSE LABon 23-13-3897Rlyjfea [Mass/Vol]120 mg/gNLngq22-944Ypx [facility]burgComment on above:Performed By: #### 54623 ####[facility] [place] [address], [place] Glucose [Mass/Vol]124 mg/nNAkft24-702Nwc [facility] Comment on above:Performed By: #### 63771 ####[facility] [place] [address], USAGlucose [Mass/Vol]136 mg/dLHigh 70-100The [facility]amisburgComment on above:Performed By: #### 62371 ####[facility] [place] [address], USAGlucose [Mass/Vol]115 mg/vXTykn62-285Yhj [facility]burgComment on above:Performed By: #### 35107 ####[facility] [place] [address], USAPORTABLE CHEST 1 VIEWon 85-75-7612KEDRFQOK CHEST 1 VIEWNormalThe [facility] Comment on above:Order Comment: evaluate for CHFPROTHROMBIN TIMEon 46-79-5993OBM Coag (PPP) [Relative time]1.13 {INR}Normal0.91-1.16The [facility]burgComment on above:Result Comment: ACCCP RECOMMENDED INR FOR WARFARIN THERAPY CONDITION INRPROPHYLAXIS OF VENOUS THROMBOSIS 2-3(HIGH-RISK SURGERY)TREATMENT OF VENOUS THROMBOSIS 2-3TREATMENT OF PULMONARY EMBOLISM 2-3PREVENTION OF SYSTEMIC EMBOLISM: 2-3 ACUTE MYOCARDIAL INFARCTION TISSUE HEART VALVES VALVULAR HEART DISEASE ATRIAL FIBRILLATION RECURRENT SYSTEMIC EMBOLISMMECHANICAL HEART VALVE 2.5-3.5 FROM: ORAL ANTICOAGULANTS. MECHANISM OF ACTION, CLINICALEFFECTIVENESS, AND OPTIMAL THERAPEU TIC RANGE. [id number];108:231S-246S.Performed By: #### 37999, 73485 ####[facility] [facility] [address], [facility] PT Coag (PPP) [Time]14.5 jNzlqem86.3-14.8The [facility] Comment on above:Result Comment: ALL RESULTS MUST BE INTERPRETED WITH RESPECT TO BLOOD DRAWING ARTIFACTOR DILUTION ERROR OF ANTICOAGULANT AT THE TIME OF SAMPLING.Performed By: #### 50593, 72106 ####[facility] [place] [address], USAALBUMIN BLOODon 47-97-0768Kooojjg [Mass/Vol]3.0 g/dLLow3.5-5.7The [facility]burgComment on above:Performed By: #### 43598, 94398, ####[facility] [place] [address], [facility] CENTERBASIC METABOLIC PANELon 05-30-2021 Calcium [Mass/Vol]8.6 mg/dLNormal8.6-10.3The [facility] Comment on above:Order Comment: No: Do not add to previous drawPerformed By: #### 76384, 47132, ####[facility] [place] [address], USAChloride [Moles/Vol]102 mmol/ROjjkrv11-427Alr [facility]burgComment on above:Order Comment: No: Do not add to previous drawPerformed By: #### 03969, 30757, 19067 ####[facility] [place] [address], [facility] CENTERCO2 [Moles/Vol]25 mmol/UIwwcyd58-63Hjm [facility]burgComment on above:Order Comment: No: Do not add to previous drawPerformed By: #### 66141, 73028, 75194 ####[facility] [place] [address], [facility] Creatinine [Mass/Vol]2.49 mg/dLHigh0.70-1.30The [facility]burgComment on above:Order Comment: No: Do not add to previous drawPerformed By: #### 09367, 90059, 28054 ####[facility] [place] [address], USAeGFR- Ggnsnzbl02 ml/min/1.73sq m Abnormal>60The [facility]burgComment on above:Order Comment: No: Do not add to previous drawResult Comment: Calculation may not be valid for patients over 70 yearsPerformed By: #### 03072, 94321, 70171 ####[facility] [place] [address], [place] eGFR- non- Ivhsaxsh22 ml/min/1.73sq mAbnormal>60The [facility]burgComment on above:Order Comment: No: Do not add to previous draw Result Comment: Calculation may not be valid for patients over 70 yearsPerformed By: #### 23371, 73743, 11425 ####[facility] [place] [address], USAGlucose [Mass/Vol]100 mg/xKWmmbxk99-848Vcv [facility]burgComment on above:Order Comment: No: Do not add to previous drawPerformed By: #### 54939, 09961, 00530 ####[facility] [place] [address], USAPotassium [Moles/Vol]4.5 mmol/LNormal3.5-5.1The [facility]burgComment on above:Order Comment: No: Do not add to previous drawPerformed By: #### 63454, 94160, 55774 ####[facility] [place] [address], USASodium [Moles/Vol]134 mmol/TXiw311-774Brw [facility]burgComment on above:Order Comment: No: Do not add to previous drawPerformed By: #### 21216, 86795, 91951 ####[facility] [place] [address], USAUrea nitrogen [Mass/Vol]32 mg/dL High7-25The [facility]burgComment on above:Order Comment: No: Do not add to previous drawPerformed By: #### 87307, 21327, 95248 ####[facility] [facility] [address], [facility] CBC COMPLETE BLOOD COUNTon 80-74-2443Rapeawadlmu distribution width (RBC) [Ratio]15.7 %High11.5-15.0The [facility]burgComment on above:Order Comment: No: Do not add to previous drawPerformed By: #### 05856 ####[facility] [place] [address], [facility] Hematocrit (Bld) [Volume fraction]26.5 %Low39.0-50.0The [facility]burgComment on above:Order Comment: No: Do not add to previous draw Performed By: #### 92585 ####[facility] [place] [address], [facility] CENTERHemoglobin (Bld) [Mass/Vol]8.4 g/dLLow13.0-17.0The [facility]burgComment on above:Order Comment: No: Do not add to previous drawPerformed By: #### 09666 ####[facility] [id number], [facility] (RBC) [Entitic mass]28.9 pg Craalb53.0-33.0The [facility]burgComment on above:Order Comment: No: Do not add to previous drawPerformed By: #### 67201 ####[facility] [place] [address], [facility] CENTERMCHC (RBC) [Mass/Vol]31.7 g/dLLow32.0-35.0The [facility]burgCombronson [facility] on above:Order Comment: No: Do not add to previous drawPerformed By: #### 31803 ####[facility] [facility] [place] [address], [facility] MCV (RBC) [Entitic vol]91.1 rLJsjfcc40.0-98.0The [facility]burgComment on above:Order Comment: No: Do not add to previous drawPerformed By: #### 99361 ####[facility] [facility] [place] [address], [facility] CENTERNucleated RBC/100 WBC (Bld) [Ratio]0 %Normal0-0The [facility]burgCombronson [facility] on above:Order Comment: No: Do not add to previous drawPerformed By: #### 49013 ####[facility] [facility] [address], USAPLAT IPA104 10*3/lCBhmyfv773-757Lmg [facility]burgComment on above:Order Comment: No: Do not add to previous drawPerformed By: #### 48713 ####[facility] [place] [address], [facility] CENTERRBC (Bld) [#/Vol]2.91 10*6/uLLow 4.20-5.70The [facility]burgComment on above:Order Comment: No: Do not add to previous drawPerformed By: #### 50992 ####[facility] [place] [address], USAWBC (Bld) [#/Vol]7.23 10*3/uLNormal4.00-10.60The [facility]burgComment on above: Order Comment: No: Do not add to previous drawPerformed By: #### 62981 ####[facility] [place] [address], [place] CREATININE URINE RANDOMon 30-90-9359Omrbkhpvfb (U) [Mass/Vol]39.0 mg/dLNoalThe [facility]burgComment on above:Order Comment: No: Do not add to previous drawResult Comment: There are no established reference values for random urine specimensPerformed By: #### 45625, 05934 ####[facility] [place] [address], USAMAGNESIUM BLOODon 48-44-4422Xuvdjwcdd [Mass/Vol]1.9 mg/dLNormal1.9-2.7The [facility]burgComment on above:Order Comment: No: Do not add to previous draw Performed By: #### 61433, 35147, 54296 ####[facility] [facility] [address], [place]APOC GLUCOSE LABon 05-30-2021 Glucose [Mass/Vol]155 mg/gNIlso77-464Nbl [facility] Comment on above:Performed By: #### 08777 ####[facility] [place] [address], USAGlucose [Mass/Vol]129 mg/dLHigh 70-100The [facility]burgComment on above:Performed By: #### 32020 ####[facility] [place] [address], USAGlucose [Mass/Vol]147 mg/lWOydn50-245Fas [facility]burgComment on above:Performed By: #### 58362 ####[facility] [facility] [address], USAPORTABLE CHEST 1 VIEWon 98-21-1868NFWMNASZ CHEST 1 VIEWNoUC [facility] Comment on above:Order Comment: Evaluate for AtelectasisT PROT UR Isi 05-30-2021U TOTAL AGQPVHK14.8 mg/dLNoUC Medical Center Comment on above:Order Comment: No: Do not add to previous drawResult Comment: There are no established reference values for random urine specimensPerformed By: #### 87382, 38101 ####[facility] [facility] [address], USAURINE TRINH STAIN/EOSon 11-82-4561NYUMVNGFMZ SMEARNONE SEENNormalNSNTThe [facility] HospitalComment on above:Order Comment: No: Do not add to previous drawILNoUC Medical CenterComment on above:Order Comment: No: Do not add to previous drawResult Comment: Test Performed by [facility] [address] [place], [place] [id number] - Vchkoerq 05/30/2021 20:40US RENALon 90-25-5972HE RENAL NormalThe [facility]amisburgComment on above:Order Comment: Other, AKIBASIC METABOLIC PANELon 40-72-2648Euqsmca [Mass/Vol]8.4 mg/dLLow 8.6-10.3The [facility]burgComment on above:Order Comment: No: Do not add to previous drawPerformed By: #### 45191, 29940, 87848 ####[facility] [facility] [address], [facility] Chloride [Moles/Vol]102 mmol/TOgqvab15-544Fua [facility]burgComment on above:Order Comment: No: Do not add to previous drawPerformed By: #### 38649, 45679, 88244 ####[facility] [place] [address], USACO2 [Moles/Vol]25 mmol/CIiwyiv88-51Gtn [facility]burgComment on above:Order Comment: No: Do not add to previous drawPerformed By: #### 89299, 39819, 16399 ####[facility] [place] [address], USACreatinine [Mass/Vol]2.12 mg/dLHigh0.70-1.30The [facility]burgComment on above:Order Comment: No: Do not add to previous drawPerformed By: #### 17553, 03395, 20149 ####[facility] [place] [address], USAeGFR- Gcagqxiu36 ml/min/1.73sq mAbnormal>60The [facility]burgComment on above:Order Comment: No: Do not add to previous drawResult Comment: Calculation may not be valid for patients over 70 yearsPerformed By: #### 67348, 35883, 79262 ####[facility] [place] [address], USAeGFR- non- Pdljdrst56 ml/min/1.73sq mAbnormal>60The [facility]burgComment on above:Order Comment: No: Do not add to previous drawResult Comment: Calculation may not be valid for patients over 70 yearsPerformed By: #### 30041, 49574, 07888 ####[facility] [place] [address], USAGlucose [Mass/Vol]103 mg/lCPmbk18-497Zpp [facility]burgComment on above:Order Comment: No: Do not add to previous drawPerformed By: #### 59590, 96996, 02199 ####[facility] [place] [address], USAPotassium [Moles/Vol]4.6 mmol/LNormal3.5-5.1 The [facility]burgComment on above:Order Comment: No: Do not add to previous drawPerformed By: #### 87453, 05949, 27114 ####[facility] [place] [address], USASodium [Moles/Vol] 133 mmol/RVki905-208Kbv [facility]burgComment on above: Order Comment: No: Do not add to previous drawPerformed By: #### 45781, 79274, 41340 ####[facility] [place] [address], USAUrea nitrogen [Mass/Vol]33 mg/dLHigh7-25The [facility]burgComment on above:Order Comment: No: Do not add to previous draw Performed By: #### 15549, 61300, 03204 ####[facility] [facility] [address], USACBC COMPLETE BLOOD COUNTon 69-28-1512Bsmfcrdxqgu distribution width (RBC) [Ratio]15.7 %High11.5-15.0The [facility]burgComment on above:Order Comment: No: Do not add to previous drawPerformed By: #### 53603 ####[facility] [facility] [address], USAHematocrit (Bld) [Volume fraction] 26.4 %Low39.0-50.0The [facility]burgComment on above:Order Comment: No: Do not add to previous drawPerformed By: #### 95835 ####[facility] [place] [address], USAHemoglobin (Bld) [Mass/Vol]8.4 g/dLLow13.0-17.0The [facility]burgComment on above:Order Comment: No: Do not add to previous drawPerformed By: #### 65120 ####[facility] [facility] [address], [facility] MCH (RBC) [Entitic mass]29.0 jgFpdbbt47.0-33.0The [facility]burgComment on above:Order Comment: No: Do not add to previous drawPerformed By: #### 35513 ####[facility] [place] [address].[place] [address], [facility] CENTERMCHC (RBC) [Mass/Vol]31.8 g/dLLow32.0-35.0The [facility]burgComment on above:Order Comment: No: Do not add to previous draw Performed By: #### 69351 ####[facility] [place] [address].[place] [address], [facility] CENTERMCV (RBC) [Entitic vol]91.0 bEWlebnc17.0-98.0The [facility]burgComment on above:Order Comment: No: Do not add to previous drawPerformed By: #### 41053 ####[facility] [place] [address].[place] [address], [facility] CENTERNucleated RBC/100 WBC (Bld) [Ratio]0 %Normal0-0The [facility]burgComment on above:Order Comment: No: Do not add to previous drawPerformed By: #### 11993 ####[facility] [place] [address].[place] [address], [facility] CENTERPLAT WYX509 10*3/zBMhwwxj877-562Fbg [facility]burgComment on above: Order Comment: No: Do not add to previous drawPerformed By: #### 01020 ####[address] [place] [address], [facility] RBC (Bld) [#/Vol]2.90 10*6/uLLow4.20-5.70The [facility] Comment on above:Order Comment: No: Do not add to previous drawPerformed By: #### 14834 ####[facility] [place] [address], USAWBC (Bld) [#/Vol]7.17 10*3/uLNormal4.00-10.60The [facility]burgComment on above:Order Comment: No: Do not add to previous draw Performed By: #### 70309 ####[facility] [place] [address], USAMAGNESIUM BLOODon 89-47-3378Cnjtwyzfl [Mass/Vol]1.9 mg/dLNormal1.9-2.7The [facility]burgComment on above:Order Comment: No: Do not add to previous drawPerformed By: #### 16339, 97010, 86763 ####[facility] [place] [address], [place] PHOSPHORUS BLOODon 62-49-7982Hwfifvmyr [Mass/Vol]4.4 mg/dLNormal2.5-5.0The [facility]burgComment on above:Order Comment: No: Do not add to previous drawPerformed By: #### 20448, 35397, 76741 ####[facility] [place] [address], [place] GLUCOSE LABon 57-58-5687Kakuhno [Mass/Vol]183 mg/qQTsdg72-146Dtz [facility]burgComment on above:Performed By: #### 16473 ####[facility] [place] [address], USAGlucose [Mass/Vol]124 mg/dLHigh 70-100The [facility]burgComment on above:Performed By: #### 35887 ####[facility] [place] [address], USAGlucose [Mass/Vol]187 mg/wSPmqf93-840Qmu [facility]burgComment on above:Performed By: #### 22930 ####[facility] [place] [address], USAGlucose [Mass/Vol]189 mg/dLHigh 70-100The [facility]burgComment on above:Performed By: #### 84620 ####[facility] [place] [address], USAPORTABLE CHEST 1 VIEWon 54-09-1056FHAAJLZZ CHEST 1 VIEWNormalThe [facility]burgComment on above:Order Comment: evaluate for AtelectasisBASIC METABOLIC PANELon 80-48-3653Cckyfvv [Mass/Vol]8.3 mg/dLLow 8.6-10.3The [facility]burgComment on above:Order Comment: No: Do not add to previous drawPerformed By: #### 10682, 32130, 96004, 13752 ####[facility] [place] [address], [place] Chloride [Moles/Vol]99 mmol/VCztory44-825Utj [facility] Comment on above:Order Comment: No: Do not add to previous drawPerformed By: #### 98931, 86919, 83942, 09173 ####[facility] [place] [address], USACO2 [Moles/Vol]26 mmol/SZarhfy39-95Cmk [facility]burgComment on above:Order Comment: No: Do not add to previous drawPerformed By: #### 07360, 07583, 51425, 88233 ####[facility] [place] [address], USACreatinine [Mass/Vol]2.18 mg/dLHigh0.70-1.30The [facility]burgComment on above:Order Comment: No: Do not add to previous drawPerformed By: #### 17158, 66070, 01894, 78600 ####[facility] [place] [address], USAeGFR- Mtygnznl72 ml/min/1.73sq mAbnormal>60The [facility]burgComment on above:Order Comment: No: Do not add to previous drawResult Comment: Calculation may not be valid for patients over 70 yearsPerformed By: #### [id number], [id number], 76733, 24763 ####[facility] [place] [address], USAeGFR- non- Zohsszjy63 ml/min/1.73sq mAbnormal>60The [facility] [place] Comment on above:Order Comment: No: Do not add to previous drawResult Comment: Calculation may not be valid for patients over 70 yearsPerformed By: #### [id number], 00048, 50252, 57756 ####[facility] [place] [address], USAGlucose [Mass/Vol]100 mg/jSOdylcd53-070Xhq [facility] [place]Comment on above:Order Comment: No: Do not add to previous drawPerformed By: #### [id number], 16154, 64525, 54094 ####[facility] [place] [address], USAPotassium [Moles/Vol]5.3 mmol/LHigh3.5-5.1The [facility] [place]Comment on above:Order Comment: No: Do not add to previous drawPerformed By: #### 95815, 34563, 45569, 68505 ####[facility] [place] [address], USASodium [Moles/Vol]131 mmol/[id number] [facility] [place]amisburgComment on above:Order Comment: No: Do not add to previous drawPerformed By: #### 81703, 76084, 64421, 96772 ####[facility] [place] [address], USAUrea nitrogen [Mass/Vol]33 mg/dLHigh7-25The [facility] MiamisburgComment on above:Order Comment: No: Do not add to previous drawPerformed By: #### 11222, 36546, 36907, 71585 ####[facility] [facility] [address], [facility] CENTERCBC W/DIFFon 05-74-1730OMY IMM GRANS0.2 10*3/uLNormal0.0-0.2The [facility] MiamisburgComment on above:Performed By: #### 92603 ####[facility] [facility] [address], USAABS NEUTROPHILS 5.6 10*3/uLNormal1.6-7.6The [facility] MiamisburgComment on above: Performed By: #### 62115 ####[facility] [facility] [address], [facility] CENTERBasophils (Bld) [#/Vol]0.0 10*3/uLNormal0.0-0.2The [facility] [place]amisburgComment on above:Performed By: #### 67766 ####[facility] [facility] [place] [address], [place] Basophils/100 WBC (Bld)0.5 %Normal0.0-1.0The [facility] [place] Comment on above:Performed By: #### 62124 ####[facility] [facility] [address], USAEosinophils (Bld) [#/Vol]0.4 10*3/uLNormal0.0-0.5The [facility] [place]burgComment on above: Performed By: #### 19073 ####[facility] [facility] [place] [address], [facility] CENTEREosinophils/100 WBC (Bld)4.5 %Normal0.0-6.0The [facility] [place]amisburgComment on above:Performed By: #### 65705 ####[facility] [facility] [place] [address], [facility] Erythrocyte distribution width (RBC) [Ratio]15.6 %High11.5-15.0The [facility] [place]amisburgComment on above:Performed By: #### 52000 ####[facility] [place] [address].[place] [address], [facility] HEALTH CENTERHematocrit (Bld) [Volume fraction]27.7 %Low39.0-50.0The [facility] [place] Comment on above:Performed By: #### 98459 ####[address] [place] [address], [facility] HE[facility] CENTERHemoglobin (Bld) [Mass/Vol]8.6 g/dLLow13.0-17.0The [facility] [place]amisburgComment on above: Performed By: #### 31487 ####[address] [place] [address], [facility] HEALTH CENTERIMMATURE GRANS1.8 %High0.0-1.0The [facility] [place]amisburgComment on above:Performed By: #### 01107 ####[address] [place] [address], [facility] HE[facility] CENTERLymphocytes (Bld) [#/Vol] 1.8 10*3/uLNormal1.2-4.0The [facility] [place]burgComment on above: Performed By: #### 99994 ####[facility] [place] [address].[place] [address], [facility] HE[facility] CENTERLymphocytes/100 WBC (Bld)20.4 %Yisxfv53.0-45.0The [facility] [place]amisburgComment on above:Performed By: #### 63980 ####[facility] [place] [address].[place] [address], [facility] MCH (RBC) [Entitic mass]28.6 dzCaiyfl27.0-33.0The [facility] [place]amisburgComment on above:Performed By: #### 01914 ####[facility] [place] [address], [facility]EEHC (RBC) [Mass/Vol]31.0 g/dLLow 32.0-35.0The [facility] [place]amisburgComment on above:Performed By: #### 11337 ####[facility] [place] [address], [facility] CENTERMCV (RBC) [Entitic vol]92.0 pSNfsuya82.0-98.0The [facility] [place]amisburgComment on above:Performed By: #### 63597 ####[facility] [place] [address], [facility] CENTERMonocytes (Bld) [#/Vol]0.9 10*3/uLNormal0.1-1.0The [facility] [place]burgComment on above: Performed By: #### 84973 ####[facility] [facility] [address], [facility] CENTERMONOS9.9 %Normal5.0-12.0The [facility] [place]burgComment on above:Performed By: #### 59174 ####[facility] [place] [address], [facility] HEALTH CENTERNeutrophils/100 WBC (Bld) 62.9 %Kqampz91.0-72.0The [facility] [place]burgComment on above: Performed By: #### 77171 ####[facility] [facility] [place] [address], USANucleated RBC/100 WBC (Bld) [Ratio]0 %Normal0-0The [facility] [place]amisburgComment on above:Performed By: #### 33104 ####[facility] [place] [address], [place] PLAT MRG591 10*3/nTVpfdqh040-517Pjx [facility] [place]amisburgComment on above:Performed By: #### 95724 ####[facility] [facility] [place] [address], [facility] CENTERRBC (Bld) [#/Vol]3.01 10*6/uLLow4.20-5.70The [facility] [place]burgComment on above:Performed By: #### 46035 ####[facility] [facility] [address], [facility] WBC (Bld) [#/Vol]8.82 10*3/uLNormal4.00-10.60The [facility] [place]burgComment on above:Performed By: #### 66356 ####[address] [place] [address], [facility] CENTERCPKon 33-73-8655SL [Catalytic activity/Vol]19 U/OHpo66-786Yva [facility] MiamisburgComment on above:Performed By: #### 46607, 01456, 62195, 83331 ####[place] [address] [facility] [place] [address], [facility]ALTH CENTERMAGNESIUM BLOODon 64-80-6650Zxqomptcl [Mass/Vol]1.9 mg/dLNormal1.9-2.7The [facility] [place]amisburgComment on above:Order Comment: No: Do not add to previous draw Performed By: #### 06821, 00201, 09663, 27534 ####[facility] [facility] [place] [address], [facility] CENTEROperative Reporton 05-28-2021 Operative ReportNormalThe [facility] MiamisburgPHOSPHORUS BLOODon 58-09-8304Wtyxllowe [Mass/Vol]4.5 mg/dLNormal2.5-5.0The [facility] MiamisburgComment on above:Performed By: #### 02481, 39917, 25303, 31143 ####[address] [place] [address], [facility] POC GLUCOSE LABon 13-92-7436Urghxcu [Mass/Vol]120 mg/bDMzck44-782Jnj [facility] MiamisburgComment on above:Performed By: #### 56581 ####[facility] [place] [address], USAGlucose [Mass/Vol]130 mg/rBLsdj00-159Sjm [facility] [place]amisburgComment on above:Performed By: #### 74892 ####[facility] [place] [address], USAGlucose [Mass/Vol]117 mg/oCUnmc77-136Sjy [facility] [place]amisburgComment on above:Performed By: #### 41432 ####[facility] [place] [address], [place] Glucose [Mass/Vol]175 mg/wDXojf16-122Hck [facility] [place] Comment on above:Performed By: #### 76250 ####[facility] [place] [address], USAGlucose [Mass/Vol]107 mg/dLHigh 70-100The [facility] [place]amisburgComment on above:Performed By: #### 04945 ####[facility] [place] [address], USABASIC METABOLIC PANELon 54-83-8450Awuulfh [Mass/Vol]8.4 mg/dLLow 8.6-10.3The [facility] [place]amisburgComment on above:Order Comment: No: Do not add to previous drawPerformed By: #### 54480, 54778, 75603 ####[facility] [place] [address], [place] Chloride [Moles/Vol]99 mmol/FDzotzr96-576Mpc [facility] [place] Comment on above:Order Comment: No: Do not add to previous drawPerformed By: #### 89632, 04412, 85188 ####[facility] [place] [address], USACO2 [Moles/Vol]29 mmol/EDmwtyn11-93Kdc [facility] [place]burgComment on above:Order Comment: No: Do not add to previous drawPerformed By: #### 71274, 47801, 74110 ####[facility] [place] [address], USACreatinine [Mass/Vol]1.78 mg/dL High0.70-1.30The [facility] [place]burgComment on above:Order Comment: No: Do not add to previous drawPerformed By: #### 01262, 23350, 57282 ####[facility] [place] [address], [place] eGFR- Lkjrozyt15 ml/min/1.73sq mAbnormal>60The [facility] [place]amisburgComment on above:Order Comment: No: Do not add to previous draw Result Comment: Calculation may not be valid for patients over 70 yearsPerformed By: #### 04361, 47376, 34908 ####[facility] [place] [address], USAeGFR- non- Guwvnymo35 ml/min/1.73sq m Abnormal>60The [facility] MiamisburgComment on above:Order Comment: No: Do not add to previous drawResult Comment: Calculation may not be valid for patients over 70 yearsPerformed By: #### 23652, 38692, 19697 ####[facility] [place] [address], [place] Glucose [Mass/Vol]96 mg/wTDdggdy15-540Hrd [facility] [place] Comment on above:Order Comment: No: Do not add to previous drawPerformed By: #### 51617, 90812, 03950 ####[facility] [place] [address], USAPotassium [Moles/Vol]4.7 mmol/LNormal3.5-5.1The [facility] [place]amisburgComment on above:Order Comment: No: Do not add to previous drawPerformed By: #### 87376, 43189, 20973 ####[facility] [place] [address], USASodium [Moles/Vol] 133 mmol/KJsh931-526Jzi [facility] [place]amisburgComment on above: Order Comment: No: Do not add to previous drawPerformed By: #### 09081, 17261, 03855 ####[facility] [place] [address], USAUrea nitrogen [Mass/Vol]33 mg/dLHigh7-25The [facility] [place]burgComment on above:Order Comment: No: Do not add to previous draw Performed By: #### 81416, 99374, 74149 ####[facility] [place] [address], USAC REACTIVE PROTEINon 48-71-3904MIX [Mass/Vol]47.2 mg/LHigh0.0-7.0The [facility] MiamisburgComment on above:Order Comment: Yes: Add to Previous draw if ablePerformed By: #### 24782 ####[facility] [place] [address], [place] CBC COMPLETE BLOOD COUNTon 76-44-5291Kmgcqcnaqto distribution width (RBC) [Ratio]15.5 %High11.5-15.0The [facility] MiamisburgComment on above:Order Comment: No: Do not add to previous drawNurse drawPerformed By: #### 13691, 02192 ####[facility] [place] [address], USAHematocrit (Bld) [Volume fraction]24.7 %Low39.0-50.0The [facility] MiamisburgComment on above:Order Comment: No: Do not add to previous drawNurse drawPerformed By: #### 32755, 44625 ####[facility] [facility] [place] [address], [facility] CENTERHemoglobin (Bld) [Mass/Vol]7.7 g/dLLow13.0-17.0The [facility] [place]amisburgComment on above:Order Comment: No: Do not add to previous drawNurse drawPerformed By: #### 59008, 67057 ####[address] [place] [address], [facility]H (RBC) [Entitic mass]28.5 ecOavtiy19.0-33.0The [facility] MiamisburgComment on above:Order Comment: No: Do not add to previous drawNurse drawPerformed By: #### 75176, 67755 ####[place] [address], [facility] HEALTH CENTERMCHC (RBC) [Mass/Vol]31.2 g/dLLow 32.0-35.0The [facility] MiamisburgComment on above:Order Comment: No: Do not add to previous drawNurse drawPerformed By: #### 18809, 55202 ####[place] [address], [facility] MCV (RBC) [Entitic vol]91.5 tBPkslhn19.0-98.0The [facility] [place]amisburgComment on above:Order Comment: No: Do not add to previous drawNurse draw Performed By: #### 37819, 76900 ####[address] [place] [address], [facility] HEALTH CENTERNucleated RBC/100 WBC (Bld) [Ratio]0 %Normal 0-0The [facility] MiamisburgComment on above:Order Comment: No: Do not add to previous drawNurse drawPerformed By: #### 97803, 47582 ####[place] [address], [facility] PLAT QTI780 10*3/gYPglkgt986-373Trw [facility] MiamisburgComment on above:Order Comment: No: Do not add to previous drawNurse drawPerformed By: #### 83257, 42205 ####[facility] [place] [address], USARBC (Bld) [#/Vol]2.70 10*6/uLLow4.20-5.70The [facility] [place]amisburgComment on above:Order Comment: No: Do not add to previous drawNurse drawPerformed By: #### 51661, 13161 ####[facility] [place] [address], USAWBC (Bld) [#/Vol]7.87 10*3/uLNormal4.00-10.60The [facility] [place]amisburgComment on above: Order Comment: No: Do not add to previous drawNurse drawPerformed By: #### 21349, 75074 ####[facility] [place] [address], USAMAGNESIUM BLOODon 10-76-6142Msihyrfrj [Mass/Vol]2.1 mg/dLNormal 1.9-2.7The [facility] [place]amisburgComment on above:Order Comment: No: Do not add to previous drawPerformed By: #### 30185, 37022, 74218 ####[facility] [place] [address], [place] POC GLUCOSE LABon 31-58-6525Rjwpnek [Mass/Vol]134 mg/dQZoro14-360Mpk [facility] MiamisburgComment on above:Performed By: #### 47303 ####[facility] [place] [address], USAGlucose [Mass/Vol]109 mg/bIBseg38-300Ivo [facility] MiamisburgComment on above:Performed By: #### 21292 ####[facility] [place] [address], USAGlucose [Mass/Vol]151 mg/nLNjdv51-270Def [facility] MiamisburgComment on above:Performed By: #### 70937 ####[facility] [place] [address], [facility] Glucose [Mass/Vol]114 mg/qILolt76-190Zfs [facility] [place] Comment on above:Performed By: #### 02830 ####[facility] [place] [address], USAPORTABLE CHEST 1 VIEWon 05-27-2021 PORTABLE CHEST 1 VIEWNoUC Medical CenterComment on above:Order Comment: evaluate for AtelectasisRBC'S 1 UNITon 17-53-8618ZTZFLEBQHM INTERP 1CSt. Vincent HospitalComment on above: Performed By: #### 59191 ####[facility] [place] [address], [facility] CENTERPRODUCT CODE [id number] Medical CenterComment on above:Performed By: #### 95221 ####[facility] [place] [address], [facility] HEALTH CENTERPRODUCT STATUS 1PTNormal The [facility] MiamisburgComment on above:Result Comment: Result changed by IF on 05/27/2021 11:45. The previous value was XM.Result changed by IF on 05/28/2021 00:30. The previous value was IS.Performed By: #### 56094 ####[facility] [place] [address], [place] UNIT ABO 1ONoUC Medical CenterComment on above: Performed By: #### 41346 ####[facility] [place] [address], USAUNIT ID [id number] Regional Medical CenterComment on above:Performed By: #### 38735 ####[facility] [place] [address], USAUNIT RH 1NegativeNormal The [facility] MiamisburgComment on above:Performed By: #### 69177 ####[facility] [place] [address], [place] SEDIMENTATION RATEon 16-76-8739DFS RATE48 mm/hrHigh0-10The [facility] MiamisburgComment on above:Performed By: #### 69226, 85794 ####[facility] [place] [address], USAVANCOMYCIN RANDOM on 97-06-7356ULRXJJJGCV RAND12.2 mcg/mLNormalThe [facility] MiamisburgComment on above:Performed By: #### 00957, 57955, 92204 ####[facility] [place] [address], USABASIC METABOLIC PANELon 84-11-1194Hnokxax [Mass/Vol]8.2 mg/dLLow8.6-10.3The [facility] [place]amisburgComment on above:Order Comment: No: Do not add to previous draw Performed By: #### 23382, 66787 ####[facility] [place] [address], USAChloride [Moles/Vol]98 mmol/TYjhlja30-608Vxy [facility] [place]amisburgComment on above:Order Comment: No: Do not add to previous drawPerformed By: #### 98704, 20993 ####[facility] [place] [address], USACO2 [Moles/Vol]30 mmol/L Ouwwuf66-16Ccw [facility] MiamisburgComment on above:Order Comment: No: Do not add to previous drawPerformed By: #### 53480, 36639 ####[facility] [place] [address], [place] Creatinine [Mass/Vol]1.78 mg/dLHigh0.70-1.30The [facility] [place]amisburgComment on above:Order Comment: No: Do not add to previous drawPerformed By: #### 40163, 98935 ####[facility] [place] [address], USAeGFR- Brbeeqve76 ml/min/1.73sq mAbnormal>60The [facility] MiamisburgComment on above:Order Comment: No: Do not add to previous drawResult Comment: Calculation may not be valid for patients over 70 yearsPerformed By: #### 41598, 40427 ####[facility] [place] [address], USAeGFR- non- Ayjozvvv78 ml/min/1.73sq mAbnormal>60The [facility] [place]amisburgComment on above:Order Comment: No: Do not add to previous drawResult Comment: Calculation may not be valid for patients over 70 yearsPerformed By: #### 46755, 84767 ####[facility] [place] [address], [place] Glucose [Mass/Vol]97 mg/zEQuxvai82-631Cfm [facility] [place] Comment on above:Order Comment: No: Do not add to previous drawPerformed By: #### 21352, 22077 ####[facility] [place] [address], USAPotassium [Moles/Vol]4.8 mmol/LNormal3.5-5.1The [facility] [place]amisburgComment on above:Order Comment: No: Do not add to previous drawPerformed By: #### 13956, 97763 ####[facility] [place] [address], USASodium [Moles/Vol]131 mmol/IJlj784-879Vvr [facility] [place]amisburgComment on above:Order Comment: No: Do not add to previous drawPerformed By: #### 17091, 85975 ####[facility] [place] [address], [facility] Urea nitrogen [Mass/Vol]35 mg/dLHigh7-25The [facility] [place] Comment on above:Order Comment: No: Do not add to previous drawPerformed By: #### 02846, 22920 ####[facility] [facility] [address], [facility]ALTH CENTERCBC COMPLETE BLOOD COUNTon 06-53-0026Bqmpilsdkzg distribution width (RBC) [Ratio]15.4 %High11.5-15.0The [facility] MiamisburgComment on above:Order Comment: No: Do not add to previous drawNurse drawPerformed By: #### 33763 ####[address] [place] [address], [facility] HEALTH CENTERHematocrit (Bld) [Volume fraction] 24.3 %Low39.0-50.0The [facility] MiamisburgComment on above:Order Comment: No: Do not add to previous drawNurse drawPerformed By: #### 07356 ####[facility] [facility] [address], [facility] Hemoglobin (Bld) [Mass/Vol]7.9 g/dLLow13.0-17.0The [facility] MiamisburgComment on above:Order Comment: No: Do not add to previous drawNurse draw Performed By: #### 60257 ####[facility] [place] [address].[place] [address], [facility] CENTERMCH (RBC) [Entitic mass]28.6 liRiwynq45.0-33.0The [facility] [place]amisburgComment on above:Order Comment: No: Do not add to previous drawNurse drawPerformed By: #### 91410 ####[facility] [place] [address].[place] [address], [facility] CENTERMCHC (RBC) [Mass/Vol]32.5 g/vUZpyjhx94.0-35.0The [facility] MiamisburgComment on above:Order Comment: No: Do not add to previous drawNurse drawPerformed By: #### 30343 ####[facility] [place] [address], [facility] MCV (RBC) [Entitic vol]88.0 gYOvzrtm12.0-98.0The [facility] MiamisburgComment on above:Order Comment: No: Do not add to previous drawNurse draw Performed By: #### 10324 ####[facility] [place] [address], [facility] CENTERNucleated RBC/100 WBC (Bld) [Ratio]0 %Normal0-0The [facility] MiamisburgComment on above:Order Comment: No: Do not add to previous drawNurse drawPerformed By: #### 49989 ####[facility] [facility] [place] [address], USAPLAT DFP520 10*3/uLNormal 150-400The [facility] MiamisburgComment on above:Order Comment: No: Do not add to previous drawNurse drawPerformed By: #### 04686 ####[address] [place] [address], [facility] CENTERRBC (Bld) [#/Vol]2.76 10*6/uLLow4.20-5.70The [facility] MiamisburgComment on above:Order Comment: No: Do not add to previous drawNurse drawPerformed By: #### 92609 ####[facility] [place] [address].[place] [address], [facility] CENTERWBC (Bld) [#/Vol]7.52 10*3/uLNormal4.00-10.60The [facility] MiamisburgComment on above:Order Comment: No: Do not add to previous drawNurse drawPerformed By: #### 00139 ####[facility] [place], [place] [address] [address], [facility] HEALTH CENTERMAGNESIUM BLOODon 05-26-2021 Magnesium [Mass/Vol]2.1 mg/dLNormal1.9-2.7The [facility] MiamisburgComment on above:Order Comment: No: Do not add to previous drawPerformed By: #### [id number], [id number] ####[facility] [place] [address], [place] GLUCOSE LABon [id number] [Mass/Vol]138 mg/dL Cnmm35-732Iac [facility] MiamisburgComment on above:Performed By: #### [id number] ####[facility] [place] [address], USAGlucose [Mass/Vol]119 mg/jUSsfb03-294Pqg [facility]amisburgComment on above:Performed By: #### [id number] ####[facility] [place] [address], USAGlucose [Mass/Vol]118 mg/dLHigh 70-100The [facility] MiamisburgComment on above:Performed By: #### [id number] ####[facility] [place] [address], USAPORTABLE CHEST 1 VIEWon [id number] CHEST 1 VIEWNormalThe [facility] MiamisburgComment on above:Order Comment: evaluate for AtelectasisBASIC METABOLIC PANELon [id number] [Mass/Vol]8.1 mg/dLLow 8.6-10.3The [facility] MiamisburgComment on above:Order Comment: No: Do not add to previous drawPerformed By: #### [id number], [id number], [id number] ####[facility] [place] [address], [place] Chloride [Moles/Vol]95 mmol/UTyu72-589Lya [facility] Comment on above:Order Comment: No: Do not add to previous drawPerformed By: #### [id number], [id number], [id number] ####[facility] [place] [address], USACO2 [Moles/Vol]27 mmol/IQdafjf04-62Clz [facility]burgComment on above:Order Comment: No: Do not add to previous drawPerformed By: #### [id number], 17593, [id number] ####[facility] [place] [address], USACreatinine [Mass/Vol]2.13 mg/dL High0.70-1.30The [facility] [place]burgComment on above:Order Comment: No: Do not add to previous drawPerformed By: #### 16028, 05878, 36161 ####[facility] [place] [address], [place] eGFR- Poojiabc59 ml/min/1.73sq mAbnormal>60The [facility] [place]amisburgComment on above:Order Comment: No: Do not add to previous draw Result Comment: Calculation may not be valid for patients over 70 yearsPerformed By: #### 33396, 36108, 95310 ####[facility] [place] [address], USAeGFR- non- Spixztne67 ml/min/1.73sq m Abnormal>60The [facility] [place]burgComment on above:Order Comment: No: Do not add to previous drawResult Comment: Calculation may not be valid for patients over 70 yearsPerformed By: #### 84836, 80100, 68898 ####[facility] [place] [address], [place] Glucose [Mass/Vol]122 mg/vWMwex35-586Ssr [facility] [place] Comment on above:Order Comment: No: Do not add to previous drawPerformed By: #### 63571, 30925, 21391 ####[facility] [place] [address], USAPotassium [Moles/Vol]4.8 mmol/LNormal3.5-5.1The [facility] [place]burgComment on above:Order Comment: No: Do not add to previous drawPerformed By: #### 60893, 93017, 56475 ####[facility] [place] [address], USASodium [Moles/Vol] 128 mmol/MArq300-435Ddh [facility] [place]burgComment on above: Order Comment: No: Do not add to previous drawPerformed By: #### 24149, 82689, 74910 ####[facility] [place] [address], USAUrea nitrogen [Mass/Vol]35 mg/dLHigh7-25The [facility] [place]burgComment on above:Order Comment: No: Do not add to previous draw Performed By: #### 58980, 67373, 90321 ####[facility] [place] [address], USACBC COMPLETE BLOOD COUNTon 93-00-7087Xfwsnswfhwc distribution width (RBC) [Ratio]15.8 %High11.5-15.0The [facility] [place]burgComment on above:Order Comment: No: Do not add to previous drawPerformed By: #### 20542 ####[facility] [place] [address], USAHematocrit (Bld) [Volume fraction] 22.3 %Low39.0-50.0The [facility] [place]burgComment on above:Order Comment: No: Do not add to previous drawPerformed By: #### 95989 ####[facility] [place] [address], USAHemoglobin (Bld) [Mass/Vol]7.3 g/dLLow13.0-17.0The [facility] [place]burgComment on above:Order Comment: No: Do not add to previous drawPerformed By: #### 18532 ####[facility] [place] [address], [place] MCH (RBC) [Entitic mass]28.7 fiPwbeky69.0-33.0The [facility] [place]burgComment on above:Order Comment: No: Do not add to previous drawPerformed By: #### 78326 ####[facility] [place] [address], [facility] CENTERMCHC (RBC) [Mass/Vol]32.7 g/jBBmnzdb99.0-35.0The [facility] [place]burgComment on above:Order Comment: No: Do not add to previous drawPerformed By: #### 21704 ####[facility] [facility] [address], [facility] CENTERMCV (RBC) [Entitic vol]87.8 tWZdfezi55.0-98.0 The [facility] [place]burgComment on above:Order Comment: No: Do not add to previous drawPerformed By: #### 48806 ####[facility] [place] [address], [facility]ALTH CENTERNucleated RBC/100 WBC (Bld) [Ratio]0 %Normal0-0The [facility] [place]burgComment on above:Order Comment: No: Do not add to previous drawPerformed By: #### 37478 ####[facility] [place] [address], [facility] PLAT VIX024 10*3/pBZkbmxs094-808Gsa [facility] [place]burgComment on above:Order Comment: No: Do not add to previous drawPerformed By: #### 71657 ####[facility] [facility] [address], [facility] RBC (Bld) [#/Vol]2.54 10*6/uLLow4.20-5.70The [facility] [place] Comment on above:Order Comment: No: Do not add to previous drawPerformed By: #### 47142 ####[facility] [facility] [place] [address], [facility] CENTERWBC (Bld) [#/Vol]8.90 10*3/uLNormal4.00-10.60The [facility] [place]burgComment on above:Order Comment: No: Do not add to previous draw Performed By: #### 27709 ####[facility] [place] [address], USAHEMATOCRITon 08-85-4501Kblxeicldz (Bld) [Volume fraction]25.1 %Low39.0-50.0The [facility] [place]burgComment on above:Order Comment: No: Do not add to previous drawPerformed By: #### 28227, 07148 ####[facility] [place] [address], USAHEMOGLOBINon 04-52-5994Lswybwtimm (Bld) [Mass/Vol]8.4 g/dLLow13.0-17.0 The [facility] [place]burgComment on above:Order Comment: No: Do not add to previous drawPerformed By: #### 39888, 15391 ####[facility] [place] [address], USAMAGNESIUM BLOODon 80-28-3691Hpkfrzlgc [Mass/Vol]2.0 mg/dLNormal1.9-2.7The [facility] [place]burgComment on above:Order Comment: No: Do not add to previous draw Performed By: #### 95198, 02692, 73218 ####[facility] [place] [address], [place]APOC GLUCOSE LABon 05-25-2021 Glucose [Mass/Vol]136 mg/rEVkcl06-008Qlw [facility] [place] Comment on above:Performed By: #### 50232 ####[facility] [place] [address], USAGlucose [Mass/Vol]115 mg/dLHigh 70-100The [facility] [place]burgComment on above:Performed By: #### 67702 ####[facility] [place] [address], USAGlucose [Mass/Vol]72 mg/yALldtan40-021Wwh [facility] [place]burgComment on above:Performed By: #### 43646 ####[facility] [place] [address], USAGlucose [Mass/Vol]154 mg/tTOtnm39-271Ype [facility] [place]burgComment on above:Performed By: #### 65918 ####[facility] [place] [address], USAPORTABLE CHEST 1 VIEWon 20-18-0582CQPDIHBL CHEST 1 VIEW NormalThe [facility] [place]amisburgComment on above:Order Comment: Evaluate for EffusionRBC'S 2 UNITSon 13-77-4638OCHOENZIJW INTERP 1CSt. Vincent HospitalComment on above:Performed By: #### 67861 ####[facility] [place] [address], [place] CROSSMATCH INTERP 2CSt. Vincent HospitalComment on above:Performed By: #### 00455 ####[facility] [place] [address], USAPRODUCT CODE [id number] Medical CenterComment on above:Performed By: #### 49116 ####[facility] [place] [address], USAPRODUCT CODE 2 [id number] Medical CenterComment on above:Performed By: #### 69477 ####[facility] [place] [address], USAPRODUCT STATUS 1PTMcCullough-Hyde Memorial [facility] Comment on above:Result Comment: Result changed by IF on 05/25/2021 13:50. The previous value was XM.Result changed by IF on 05/26/2021 00:30. The previous value was IS.Performed By: #### 82374 ####[facility] [place] [address], USAPRODUCT STATUS 2PTNoUC Medical CenterComment on above:Result Comment: Result changed by IF on 05/25/2021 09:50. The previous value was XM.Result changed by IF on 05/26/2021 00:30. The previous value was IS.Performed By: #### 52802 ####[facility] [place] [address], [facility] UNIT ABO 1[facility] Tiffin HospitalComment on above: Performed By: #### 80308 ####[facility] [place] [address], USAUNIT ABO 2ONoUC Medical CenterComment on above:Performed By: #### 20180 ####[facility] [place] [address], [place]UNIT ID [id number] [facility] [place]burgComment on above:Performed By: #### 85876 ####[place] [address] [place] [address], [place] UNIT ID [id number] [facility] [place]amisburgComment on above:Performed By: #### 21384 ####[facility] [place] [address], USAUNIT RH 1PositiveNoUC Medical CenterComment on above:Performed By: #### 40842 ####[facility] [place] [address], USAUNIT RH 2Positive NormalSalem Regional Medical CenterComment on above:Performed By: #### 11725 ####[facility] [place] [address], USAVANCOMYCIN TIMEDon 44-29-7226NOOIWNJMSY TIMED24.3 mcg/mLNormalThe [facility] [place]burgComment on above:Performed By: #### 31153, 42635, 84016 ####[facility] [place] [address], USABASIC METABOLIC PANELon 70-47-9276Fqwpdte [Mass/Vol]7.8 mg/dLLow 8.6-10.3The [facility] [place]burgComment on above:Order Comment: No: Do not add to previous drawPerformed By: #### 57224, 42530, 45099, 29129 ####[facility] [facility] [address], [place] Chloride [Moles/Vol]97 mmol/NToe55-916Lqi [facility] [place] Comment on above:Order Comment: No: Do not add to previous drawPerformed By: #### 01313, 93643, 09750, 93562 ####[facility] [place] [address], USACO2 [Moles/Vol]30 mmol/PDduyoc37-14Jab [facility] [place]burgComment on above:Order Comment: No: Do not add to previous drawPerformed By: #### 70066, 16068, 46876, 36883 ####[facility] [facility] [address], USACreatinine [Mass/Vol]1.70 mg/dLHigh0.70-1.30The [facility] [place]burgComment on above:Order Comment: No: Do not add to previous drawPerformed By: #### 91531, 60338, 29950, 94701 ####[facility] [place] [address], [place]eGFR- Harrwrem43 ml/min/1.73sq mAbnormal>60The [facility] [place]burgComment on above:Order Comment: No: Do not add to previous drawResult Comment: Calculation may not be valid for patients over 70 yearsPerformed By: #### 52230, 89556, 10691, 71883 ####[facility] [facility] [place] [address], [place]eGFR- non- Oyjsmqme94 ml/min/1.73sq mAbnormal>60The [facility] [place] Comment on above:Order Comment: No: Do not add to previous drawResult Comment: Calculation may not be valid for patients over 70 yearsPerformed By: #### 12495, 82052, 17091, 78714 ####[facility] [place] [address], USAGlucose [Mass/Vol]132 mg/hRYqju11-156Htb [facility] [place]burgComment on above:Order Comment: No: Do not add to previous drawPerformed By: #### 58308, 40932, 16939, 90363 ####[facility] [facility] [place] [address], USAPotassium [Moles/Vol]5.2 mmol/LHigh3.5-5.1The [facility] [place]burgComment on above:Order Comment: No: Do not add to previous drawPerformed By: #### 90963, 71967, 83831, 04304 ####[address] [place] [address], USASodium [Moles/Vol]131 mmol/DElr426-013Cgq [facility] [place]burgComment on above:Order Comment: No: Do not add to previous drawPerformed By: #### 20009, 34321, 50580, 08690 ####[facility] [facility] [place] [address], USAUrea nitrogen [Mass/Vol]27 mg/dLHigh7-25The [facility] [place]burgComment on above:Order Comment: No: Do not add to previous drawPerformed By: #### 67910, 44478, 69978, 25904 ####[facility] [facility] [place] [address], [facility] CENTERCBC COMPLETE BLOOD COUNTon 94-39-5375Ipidrdrfqaz distribution width (RBC) [Ratio]14.5 %Normal 11.5-15.0The [facility] [place]amisburgComment on above:Order Comment: No: Do not add to previous drawPerformed By: #### 55120 ####[facility] [facility] [place] [address], [facility] HEALTH CENTERHematocrit (Bld) [Volume fraction]23.1 %Low39.0-50.0The [facility] [place]amisburgComment on above:Order Comment: No: Do not add to previous drawPerformed By: #### 08857 ####[facility] [place] [address].[place] [address], [facility] Hemoglobin (Bld) [Mass/Vol]7.4 g/dLLow13.0-17.0The [facility] [place]amisburgComment on above:Order Comment: No: Do not add to previous drawPerformed By: #### 39717 ####[facility] [facility] [place] [address], [facility] (RBC) [Entitic mass]28.9 adRyexgr82.0-33.0The [facility] [place]amisburgComment on above:Order Comment: No: Do not add to previous drawPerformed By: #### 01121 ####[facility] [facility] [place] [address], [facility] CENTERMCHC (RBC) [Mass/Vol]32.0 g/mTIqcbzq77.0-35.0 The [facility] [place]amisburgComment on above:Order Comment: No: Do not add to previous drawPerformed By: #### 44848 ####[facility] [facility] [place] [address], [facility] (RBC) [Entitic vol] 90.2 nFPrpfdm10.0-98.0The [facility] [place]burgComment on above: Order Comment: No: Do not add to previous drawPerformed By: #### 47825 ####[facility] [place] [address], [facility] Nucleated RBC/100 WBC (Bld) [Ratio]0 %Normal0-0The [facility] [place]burgComment on above:Order Comment: No: Do not add to previous drawPerformed By: #### 01770 ####[facility] [place] [address], USAPLAT JRI681 10*3/nZCithjx695-775Njr [facility] [place]burgComment on above:Order Comment: No: Do not add to previous drawPerformed By: #### 38409 ####[facility] [place] [address], [facility] CENTERRBC (Bld) [#/Vol]2.56 10*6/uLLow4.20-5.70The [facility] [place]burgComment on above:Order Comment: No: Do not add to previous draw Performed By: #### 49164 ####[facility] [place] [address], [facility] CENTERWBC (Bld) [#/Vol]10.23 10*3/uLNormal4.00-10.60The [facility] [place]burgComment on above:Order Comment: No: Do not add to previous drawPerformed By: #### 17760 ####[facility] [place] [address], USAMAGNESIUM BLOODon 05-24-2021 Magnesium [Mass/Vol]1.8 mg/dLLow1.9-2.7The [facility] [place] Comment on above:Order Comment: No: Do not add to previous drawPerformed By: #### 73199, 96681, 74219, 19032 ####[facility] [place] [address], USAPHOSPHORUS BLOODon 21-63-8178Xcwoscgkd [Mass/Vol]5.0 mg/dLNormal2.5-5.0The [facility] [place]burgComment on above:Order Comment: No: Do not add to previous drawPerformed By: #### 59992, 15412, 74703, 88206 ####[facility] [place] [address], [place]APOC GLUCOSE LABon 07-04-5688Ekyfqwb [Mass/Vol]156 mg/dL Dzdn72-533Gyl [facility] [place]amisburgComment on above:Performed By: #### 46587 ####[facility] [place] [address], USAGlucose [Mass/Vol]129 mg/aSLmir85-648Vvr [facility] [place]burgComment on above:Performed By: #### 75079 ####[facility] [place] [address], USAGlucose [Mass/Vol]188 mg/dLHigh 70-100The [facility] [place]burgComment on above:Performed By: #### 86037 ####[facility] [place] [address], USAGlucose [Mass/Vol]141 mg/mCBqir42-829Arr [facility] [place]burgComment on above:Performed By: #### 08607 ####[facility] [place] [address], USARBC'S 1 UNITon 05-24-2021 CROSSMATCH INTERP 1CSt. Vincent HospitalComment on above:Performed By: #### 78459 ####[facility] [place] [address], USAPRODUCT CODE [id number] Medical CenterComment on above:Performed By: #### 28947 ####[facility] [place] [address], USAPRODUCT STATUS 1PT NormalThe [facility] [place]amisburgComment on above:Result Comment: Result changed by IF on 05/24/2021 11:33. The previous value was XM.Result changed by IF on 05/25/2021 00:30. The previous value was IS.Performed By: #### 81249 ####[facility] [place] [address], USAUNIT ABO 1ONoUC Medical CenterComment on above:Performed By: #### 07101 ####[facility] [place] [address], USAUNIT ID [id number] [facility] [place]burgComment on above:Performed By: #### 97488 ####[facility] [facility] [address], USAUNIT RH 1 PositiveNoUC Medical CenterComment on above:Performed By: #### 94352 ####[facility] [place] [address], USATYPE AND SCREENon 97-96-4975BGN INTERPRETATIONONoUC Medical CenterComment on above:Performed By: #### 89232 ####[facility] [facility] [address], [place] RH INTERPRETATIONPositiveMcCullough-Hyde Memorial HospitalComment on above:Performed By: #### 10455 ####[facility] [place] [address], USAVANCOMYCIN TIMEDon 77-03-9784AABPTLBYOT TIMED 42.1 mcg/mLNormalThe [facility] [place]burgComment on above: Performed By: #### 08665, 53394, 99778, 95333 ####[facility] [facility] [place] [address], USABASIC METABOLIC PANELon 05-23-2021 Calcium [Mass/Vol]8.7 mg/dLNormal8.6-10.3The [facility] [place] Comment on above:Order Comment: No: Do not add to previous drawPerformed By: #### 51144, 77549, 60751 ####[facility] [place] [address], USAChloride [Moles/Vol]97 mmol/EVfn07-799Rxs [facility] [place]burgComment on above:Order Comment: No: Do not add to previous drawPerformed By: #### 47190, 97758, 63789 ####[facility] [place] [address], USACO2 [Moles/Vol]32 mmol/EIpdh07-98 The [facility] [place]burgComment on above:Order Comment: No: Do not add to previous drawPerformed By: #### 63726, 64679, 97105 ####[facility] [place] [address], USACreatinine [Mass/Vol]1.31 mg/dLHigh0.70-1.30The [facility] [place]burgComment on above:Order Comment: No: Do not add to previous drawPerformed By: #### 64732, 68638, 19685 ####[facility] [place] [address], USAeGFR- non- Fpdfekvv83 ml/min/1.73sq mAbnormal>60The [facility] [place]burgComment on above:Order Comment: No: Do not add to previous drawResult Comment: Calculation may not be valid for patients over 70 yearsPerformed By: #### 53408, 22649, 47351 ####[facility] [place] [address], USAGFR/1.73 sq M.predicted among blacks MDRD (S/P/Bld) [Vol rate/Area]mL/min/{1.73_m2}Normal>60The [facility] [place]amisburgComment on above:Order Comment: No: Do not add to previous drawResult Comment: Calculation may not be valid for patients over 70 yearsPerformed By: #### 88317, 29977, 68413 ####[facility] [place] [address], USAGlucose [Mass/Vol]105 mg/bPAejw61-898Fmf [facility]burgComment on above:Order Comment: No: Do not add to previous drawPerformed By: #### 52696, 62291, 10861 ####[facility] [place] [address], [place] Potassium [Moles/Vol]4.0 mmol/LNormal3.5-5.1The [facility]burgComment on above:Order Comment: No: Do not add to previous drawPerformed By: #### 14288, 79939, 13004 ####[facility] [place] [address], USASodium [Moles/Vol]133 mmol/HUco671-117Ipf [facility] [place]burgComment on above:Order Comment: No: Do not add to previous drawPerformed By: #### 43375, 14579, 69799 ####[facility] [place] [address], USAUrea nitrogen [Mass/Vol]24 mg/dLNormal7-25The [facility] [place]burgComment on above:Order Comment: No: Do not add to previous drawPerformed By: #### 74101, 48769, 27913 ####[facility] [place] [address], USACBC COMPLETE BLOOD COUNTon 36-09-7870Rxacalgyyck distribution width (RBC) [Ratio]14.3 %Oaewun59.5-15.0The [facility] [place] Comment on above:Order Comment: No: Do not add to previous drawPerformed By: #### 61535 ####[facility] [place] [address], USAHematocrit (Bld) [Volume fraction]29.4 %Low39.0-50.0The [facility] [place]amisburgComment on above:Order Comment: No: Do not add to previous drawPerformed By: #### 80165 ####[facility] [place] [address], [facility] CENTERHemoglobin (Bld) [Mass/Vol]9.4 g/dLLow 13.0-17.0The [facility] [place]burgComment on above:Order Comment: No: Do not add to previous drawPerformed By: #### 17540 ####[facility] [facility] [address], [facility] CENTERMCH (RBC) [Entitic mass] 28.5 bkEqdgoj90.0-33.0The [facility] [place]amisburgComment on above: Order Comment: No: Do not add to previous drawPerformed By: #### 26615 ####[facility] [facility] [address], [facility] MCHC (RBC) [Mass/Vol]32.0 g/jKDkghon20.0-35.0The [facility]amisburgComment on above:Order Comment: No: Do not add to previous drawPerformed By: #### 45196 ####[facility] [facility] [address], [facility] CENTERMCV (RBC) [Entitic vol]89.1 iCTsdoop94.0-98.0The [facility]amisburgComment on above:Order Comment: No: Do not add to previous drawPerformed By: #### [id number] ####[facility] [facility] [address], [facility]-HLE HEALTH CENTERNucleated RBC/100 WBC (Bld) [Ratio]0 %Normal 0-0The [facility] [place]burgComment on above:Order Comment: No: Do not add to previous drawPerformed By: #### [id number] ####[facility] [place] [address].[place] [address], [place] [id number] 10*3/uLNormal 150-400The [facility] [place]burgComment on above:Order Comment: No: Do not add to previous drawPerformed By: #### [id number] ####[facility] [place] [address], USARBC (Bld) [#/Vol]3.30 10*6/uLLow4.20-5.70The [facility] [place]burgComment on above:Order Comment: No: Do not add to previous drawPerformed By: #### [id number] ####[facility] [place] [address], AQUILESWBC (Bld) [#/Vol]7.22 10*3/uLNormal4.00-10.60The [facility] [place] Comment on above:Order Comment: No: Do not add to previous drawPerformed By: #### [id number] ####[facility].[place] [address], USAMAGNESIUM BLOODon 33-98-1834Kttbwvweg [Mass/Vol]1.9 mg/dLNormal1.9-2.7 The [facility] MiamisburgComment on above:Order Comment: No: Do not add to previous drawPerformed By: #### 61308, 81520, 87255 ####[facility] [place] [address], USAPHOSPHORUS BLOODon 23-68-2782Auwtjertc [Mass/Vol]3.4 mg/dLNormal2.5-5.0The [facility]amisburgComment on above:Order Comment: No: Do not add to previous draw Performed By: #### 72584, 06116, 34867 ####[facility] [place] [address], [place]APOC GLUCOSE LABon 05-23-2021 Glucose [Mass/Vol]141 mg/gTKyvh17-059Jiu [facility] Comment on above:Performed By: #### 86344 ####[facility] [place] [address], USAGlucose [Mass/Vol]147 mg/dLHigh 70-100The [facility] MiamisburgComment on above:Performed By: #### 95445 ####[facility] [place] [address], USAGlucose [Mass/Vol]138 mg/rIAcul15-320Qce [facility]amisburgComment on above:Performed By: #### 50649 ####[facility] [place] [address], USAGlucose [Mass/Vol]112 mg/dLHigh 70-100The [facility] MiamisburgComment on above:Performed By: #### 96926 ####[facility] [place] [address], USAGlucose [Mass/Vol]121 mg/iVAouz61-783Sii [facility]amisburgComment on above:Performed By: #### 72026 ####[facility] [facility] [place] [address], [place]APOC SARS COV2 ANTIGEN NEGATIVEon 64-69-1579YWZ SARS COV2 ANTIGEN NEGNegativeNormalNEGATIVEThe [facility] MiamisburgComment on above:Result Comment: Negative results from patients with symptom onset beyond [...] of clinicalsigns and symptoms consistent with COVID-19.The [employer] COVID-19 Ag Card is a lateral flow immunoassay intended forthe qualitative detection of nucleocapsid protein antigen mncrPPBN-ZsG-8 in direct nasal swabs from individuals within [...] of Waiver, Certificate of Compliance, or Certificate ofAccreditation.Performed By: #### 07847 ####[facility] [facility] [place] [address], USAPORTABLE CHEST 1 VIEWon 90-33-7344IXGVKNWC CHEST 1 VIEWNormalThe [facility] MiamisburgComment on above:Order Comment: evaluate for AtelectasisVANCOMYCIN RANDOMon 61-61-0778UESPSSLTAK RAND19.6 mcg/mLNormalThe [facility]amisburgComment on above:Order Comment: No: Do not add to previous drawPerformed By: #### 44365 ####[facility] [facility] [address], USABASIC METABOLIC PANELon 05-22-2021 Calcium [Mass/Vol]8.6 mg/dLNormal8.6-10.3The [facility] Comment on above:Order Comment: No: Do not add to previous drawPerformed By: #### 94837, 40954, 52725 ####[facility] [facility] [place] [address], USAChloride [Moles/Vol]98 mmol/PVenumd13-157Imc [facility]burgComment on above:Order Comment: No: Do not add to previous drawPerformed By: #### 03256, 75079, 83252 ####[facility] [facility] [address], USACO2 [Moles/Vol]33 mmol/L Zfpj55-38Yqa [facility]burgComment on above:Order Comment: No: Do not add to previous drawPerformed By: #### 75737, 52496, 63820 ####[facility] [place] [address], [facility] Creatinine [Mass/Vol]1.21 mg/dLNormal0.70-1.30The [facility]burgComment on above:Order Comment: No: Do not add to previous drawPerformed By: #### 89404, 65436, 75812 ####[facility] [place] [address], USAeGFR- non- Topnlauz47 ml/min/1.73sq m Abnormal>60The [facility] MiamisburgComment on above:Order Comment: No: Do not add to previous drawResult Comment: Calculation may not be valid for patients over 70 yearsPerformed By: #### 44372, 93043, 09273 ####[facility] [place] [address], [facility] GFR/1.73 sq M.predicted among blacks MDRD (S/P/Bld) [Vol rate/Area] mL/min/{1.73_m2}Normal>60The [facility]burgComment on above:Order Comment: No: Do not add to previous drawResult Comment: Calculation may not be valid for patients over 70 yearsPerformed By: #### 17895, 53546, 07142 ####[facility] [place] [address], [facility] CENTERGlucose [Mass/Vol]115 mg/vNWcub75-225Eqo [facility]burgComment on above:Order Comment: No: Do not add to previous drawPerformed By: #### 16065, 69579, 12558 ####[facility] [place] [address], [facility] CENTERPotassium [Moles/Vol]3.9 mmol/LNormal3.5-5.1 The [facility]burgComment on above:Order Comment: No: Do not add to previous drawPerformed By: #### 14468, 06555, 16613 ####[facility] [place] [address], USASodium [Moles/Vol] 135 mmol/RLuh114-234Igu [facility]burgComment on above: Order Comment: No: Do not add to previous drawPerformed By: #### 30084, 84507, 68735 ####[facility] [place] [address], USAUrea nitrogen [Mass/Vol]22 mg/dLNormal7-25The [facility]burgComment on above:Order Comment: No: Do not add to previous draw Performed By: #### 05315, 66990, 08116 ####[facility] [place] [address].[place] [address], USACBC COMPLETE BLOOD COUNTon 24-02-1280Czxchkgyitr distribution width (RBC) [Ratio]14.3 %Vzydrz95.5-15.0The [facility]amisburgComment on above:Order Comment: No: Do not add to previous drawPerformed By: #### 12214 ####[place] [address] [facility] [place] [address], [facility] CENTERHematocrit (Bld) [Volume fraction] 24.7 %Low39.0-50.0The [facility]amisburgComment on above:Order Comment: No: Do not add to previous drawPerformed By: #### 32500 ####[address] [place] [address], USAHemoglobin (Bld) [Mass/Vol]7.6 g/dLLow13.0-17.0The [facility]amisburgComment on above:Order Comment: No: Do not add to previous drawPerformed By: #### 42206 ####[facility] [place], [place] [address]E.[place] [address], [place] MCH (RBC) [Entitic mass]28.3 cwRgnzfm98.0-33.0The [facility]amisburgComment on above:Order Comment: No: Do not add to previous drawPerformed By: #### 62927 ####[facility] [place] [address], [facility] CENTERMCHC (RBC) [Mass/Vol]30.8 g/dLLow32.0-35.0The [facility]amisburgComment on above:Order Comment: No: Do not add to previous draw Performed By: #### 61756 ####[facility] [place] [address], [facility] CENTERMCV (RBC) [Entitic vol]91.8 zTQjfake43.0-98.0The [facility]amisburgComment on above:Order Comment: No: Do not add to previous drawPerformed By: #### 11547 ####[facility] [place] [address], [facility] CENTERNucleated RBC/100 WBC (Bld) [Ratio]0 %Normal0-0The [facility]amisburgComment on above:Order Comment: No: Do not add to previous drawPerformed By: #### 09811 ####[facility] [facility] [place] [address], [facility] CENTERPLAT [id number] 10*3/cJYgidpe348-188Cqt [facility]burgComment on above: Order Comment: No: Do not add to previous drawPerformed By: #### 46514 ####[facility] [facility] [address], [facility] RBC (Bld) [#/Vol]2.69 10*6/uLLow4.20-5.70The [facility] Comment on above:Order Comment: No: Do not add to previous drawPerformed By: #### 28115 ####[facility] [place] [address], [facility] CENTERWBC (Bld) [#/Vol]7.75 10*3/uLNormal4.00-10.60The [facility]amisburgComment on above:Order Comment: No: Do not add to previous draw Performed By: #### 22000 ####[facility] [place] [address], [facility] CENTERMAGNESIUM BLOODon 95-02-2939Kelvmunon [Mass/Vol]1.9 mg/dLNormal1.9-2.7The [facility]amisburgComment on above:Order Comment: No: Do not add to previous drawPerformed By: #### 25058, 25774, 16350 ####[facility] [place] [address], [facility] Operative Reporton 92-24-1013Zpbyvtdle ReportNoUC Medical CenterPO GLUCOSE LABon 05-33-2092Wywjzjv [Mass/Vol]126 mg/pAAilq69-396 The [facility] MiamisburgComment on above:Performed By: #### 41703 ####[facility] [place] [address], [facility] Glucose [Mass/Vol]136 mg/qMAkbl42-421Ogs [facility] Comment on above:Performed By: #### 29148 ####[facility] [place] [address], [facility] CENTERGlucose [Mass/Vol]156 mg/dLHigh 70-100The [facility] MiamisburgComment on above:Performed By: #### 67683 ####[facility] [place] [address], [facility] CENTERPORTABLE CHEST 1 VIEWon 50-32-9667XORUCMSK CHEST 1 VIEWNoUC Medical CenterComment on above:Order Comment: Evaluate for Atelectasis, commonRBC'S 1 UNITon 70-71-3582EWMSRMWBTM INTERP 1CSt. Vincent HospitalComment on above:Performed By: #### 05370 ####[address] [address], [facility] PRODUCT CODE [id number]-Hyde Memorial HospitalComment on above:Performed By: #### 60948 ####[facility] [place] [address], [facility] CENTERPRODUCT STATUS 1PTMcCullough-Hyde Memorial HospitalComment on above:Result Comment: Result changed by IF on 05/22/2021 13:33. The previous value was XM.Result changed by IF on 05/23/2021 00:30. The previous value was IS.Performed By: #### 72028 ####[facility] [place] [address], USAUNIT ABO 1ONormal [facility] Medical CenterComment on above:Performed By: #### 00404 ####[facility] [place] [address], [facility] UNIT ID [id number] Regional Medical CenterComment on above:Performed By: #### 64289 ####[facility] [place] [address], USAUNIT RH 1PosiKettering HealthComment on above:Performed By: #### 24107 ####[facility] [place] [address], USARBC'S 3 UNITSon [id number] INTERP 1CSt. [facility] Hospital Comment on above:Order Comment: Hemoglobin < 9 gm/dl with known cardiac or cerebrovascular diseasePerformed By: #### 63235 ####[facility] [place] [address], [facility] HEALTH CENTERCROSSMATCH INTERP 2CSt. Vincent HospitalComment on above:Order Comment: Hemoglobin < 9 gm/dl with known cardiac or cerebrovascular diseasePerformed By: #### 13945 ####[facility] [place] [address], [place] CROSSMATCH INTERP 3CSt. Vincent HospitalComment on above:Order Comment: Hemoglobin < 9 gm/dl with known cardiac or cerebrovascular diseasePerformed By: #### 13932 ####[facility] [place] [address], USAPRODUCT CODE [id number]-Hyde Memorial HospitalComment on above:Order Comment: Hemoglobin < 9 gm/dl with known cardiac or cerebrovascular diseasePerformed By: #### 38430 ####[facility] [place] [address], USAPRODUCT CODE 2 [id number]-Hyde Memorial HospitalComment on above:Order Comment: Hemoglobin < 9 gm/dl with known cardiac or cerebrovascular disease Performed By: #### 74365 ####[facility] [place] [address], USAPRODUCT CODE [id number]-Hyde Memorial HospitalComment on above:Order Comment: Hemoglobin < 9 gm/dl with known cardiac or cerebrovascular diseasePerformed By: #### 00811 ####[facility] [place] [address], USAPRODUCT STATUS 1PT NormalThe [facility] MiamisburgComment on above:Order Comment: Hemoglobin < 9 gm/dl with known cardiac or cerebrovascular diseaseResult Comment: Result changed by IF on 05/22/2021 17:51. The previous value was XM.Result changed by IF on 05/23/2021 00:30. The previous value was IS.Performed By: #### 55793 ####[facility] [place] [address], USAPRODUCT STATUS 2RENormUniversity Hospitals Ahuja Medical CenterComment on above:Order Comment: Hemoglobin < 9 gm/dl with known cardiac or cerebrovascular diseaseResult Comment: Result changed by IF on 05/24/2021 07:35. The previous value was XM.Performed By: #### 46721 ####[facility] [place] [address], [place] PRODUCT STATUS 3RAvita Health SystemComment on above: Order Comment: Hemoglobin < 9 gm/dl with known cardiac or cerebrovascular diseaseResult Comment: Result changed by IF on 05/24/2021 07:35. The previous value was XM.Performed By: #### 26515 ####[facility] [place] [address], USAUNIT ABO 1[facility] Tiffin HospitalComment on above:Order Comment: Hemoglobin < 9 gm/dl with known cardiac or cerebrovascular diseasePerformed By: #### 19253 ####[facility] [place] [address], USAUNIT ABO 2O NormalSalem Regional Medical CenterComment on above:Order Comment: Hemoglobin < 9 gm/dl with known cardiac or cerebrovascular diseasePerformed By: #### 90331 ####[facility] [place] [address], USAUNIT ABO 3[facility] Tiffin HospitalComment on above:Order Comment: Hemoglobin < 9 gm/dl with known cardiac or cerebrovascular diseasePerformed By: #### 97266 ####[facility] [place] [address], USAUNIT ID [id number]-Hyde Memorial HospitalComment on above:Order Comment: Hemoglobin < 9 gm/dl with known cardiac or cerebrovascular diseasePerformed By: #### 57203 ####[facility] [place] [address], [place] UNIT ID [id number] Health Behavioral Medical CenterComment on above:Order Comment: Hemoglobin < 9 gm/dl with known cardiac or cerebrovascular diseasePerformed By: #### 72011 ####[facility] [place] [address], USAUNIT ID [id number]-Hyde Memorial HospitalComment on above:Order Comment: Hemoglobin < 9 gm/dl with known cardiac or cerebrovascular diseasePerformed By: #### 74489 ####[facility] [place] [address], [place] UNIT RH 1NegaKettering HealthComment on above: Order Comment: Hemoglobin < 9 gm/dl with known cardiac or cerebrovascular diseasePerformed By: #### 10609 ####[facility] [place] [address], USAUNIT RH 2PosiKettering HealthComment on above:Order Comment: Hemoglobin < 9 gm/dl with known cardiac or cerebrovascular diseasePerformed By: #### 50812 ####[facility] [place] [address], USAUNIT RH 3 PositiveMcCullough-Hyde Memorial HospitalComment on above:Order Comment: Hemoglobin < 9 gm/dl with known cardiac or cerebrovascular disease Performed By: #### 75706 ####[facility] [place] [address], USAVANCOMYCIN TIMEDon 85-47-6018GFDFLFTROY TIMED19.6 mcg/mLNormalThe [facility] MiamisburgComment on above:Performed By: #### 83535, 63630, 35822 ####[facility] [place] [address], USABASIC METABOLIC PANELon 28-55-8605Fyczgxh [Mass/Vol]8.5 mg/dLLow8.6-10.3The [facility] MiamisburgComment on above:Order Comment: No: Do not add to previous drawPerformed By: #### 72333, 59926, 64796 ####[facility] [place] [address], USAChloride [Moles/Vol]96 mmol/GKhp15-594Mrt [facility]burgComment on above:Order Comment: No: Do not add to previous draw Performed By: #### 36107, 81660, 79272 ####[facility] [place] [address], USACO2 [Moles/Vol]37 mmol/IHtjy74-79 The [facility] MiamisburgComment on above:Order Comment: No: Do not add to previous drawPerformed By: #### 68325, 79050, 09855 ####[facility] [place] [address], USACreatinine [Mass/Vol]0.92 mg/dLNormal0.70-1.30The [facility] Comment on above:Order Comment: No: Do not add to previous drawPerformed By: #### 07420, 12210, 03429 ####[facility] [place] [address], USAGFR/1.73 sq M.predicted among blacks MDRD (S/P/Bld) [Vol rate/Area]mL/min/{1.73_m2}Normal>60The [facility] Comment on above:Order Comment: No: Do not add to previous drawResult Comment: Calculation may not be valid for patients over 70 yearsPerformed By: #### 59260, 43176, 66862 ####[facility] [place] [address], USAGFR/1.73 sq M.predicted among non-blacks MDRD (S/P/Bld) [Vol rate/Area]mL/min/{1.73_m2}Normal>60The [facility] Comment on above:Order Comment: No: Do not add to previous drawResult Comment: Calculation may not be valid for patients over 70 yearsPerformed By: #### 98447, 45823, 98627 ####[facility] [place] [address], USAGlucose [Mass/Vol]117 mg/hMTmwx29-758Lfm [facility]burgComment on above:Order Comment: No: Do not add to previous draw Performed By: #### 13077, 06744, 82875 ####[facility] [place] [address], [facility] CENTERPotassium [Moles/Vol]3.9 mmol/L Normal3.5-5.1The [facility] MiamisburgComment on above:Order Comment: No: Do not add to previous drawPerformed By: #### 82290, 23622, 61377 ####[facility] [place] [address], [place] Sodium [Moles/Vol]134 mmol/TSdp756-981Lwn [facility] Comment on above:Order Comment: No: Do not add to previous drawPerformed By: #### 93888, 63497, 12764 ####[facility] [place] [address], USAUrea nitrogen [Mass/Vol]17 mg/dLNormal7-25The [facility] MiamisburgComment on above:Order Comment: No: Do not add to previous drawPerformed By: #### 45336, 09841, 43262 ####[facility] [place] [address], [facility]ALTH CENTERCBC COMPLETE BLOOD COUNTon 11-61-3323Cfxgkwyfqkk distribution width (RBC) [Ratio]14.3 %Normal 11.5-15.0The [facility] MiamisburgComment on above:Order Comment: No: Do not add to previous drawPerformed By: #### 65319 ####[facility] [place] [address], [facility] CENTERHematocrit (Bld) [Volume fraction]27.2 %Low39.0-50.0The [facility] MiamisburgComment on above:Order Comment: No: Do not add to previous drawPerformed By: #### 75675 ####[facility] [place] [address], [place] Hemoglobin (Bld) [Mass/Vol]8.1 g/dLLow13.0-17.0The [facility] MiamisburgComment on above:Order Comment: No: Do not add to previous drawPerformed By: #### 93042 ####[facility] [place] [address], [facility] (RBC) [Entitic mass]27.6 dsCgyzal41.0-33.0The [facility] MiamisburgComment on above:Order Comment: No: Do not add to previous drawPerformed By: #### 01405 ####[facility] [place] [address], [facility] (RBC) [Mass/Vol]29.8 g/dLLow32.0-35.0The [facility] MiamisburgComment on above:Order Comment: No: Do not add to previous drawPerformed By: #### 79705 ####[facility] [place] [address], [facility] (RBC) [Entitic vol]92.8 fL Ccxilo25.0-98.0The [facility] MiamisburgComment on above:Order Comment: No: Do not add to previous drawPerformed By: #### 21949 ####[facility] [place] [address], [facility] CENTERNucleated RBC/100 WBC (Bld) [Ratio]0 %Normal0-0The [facility] Comment on above:Order Comment: No: Do not add to previous drawPerformed By: #### 39064 ####[facility] [place] [address], USAPLAT MWQ756 10*3/iDKprsyq212-935Lbv [facility]amisburgComment on above:Order Comment: No: Do not add to previous drawPerformed By: #### 21355 ####[facility] [place] [address], [facility] CENTERRBC (Bld) [#/Vol]2.93 10*6/uLLow4.20-5.70The [facility] MiamisburgComment on above:Order Comment: No: Do not add to previous draw Performed By: #### 63565 ####[facility] [place] [address], USAWBC (Bld) [#/Vol]6.21 10*3/uLNormal4.00-10.60The [facility] MiamisburgComment on above:Order Comment: No: Do not add to previous drawPerformed By: #### 19721 ####[facility] [place] [address], USAMAGNESIUM BLOODon 05-21-2021 Magnesium [Mass/Vol]2.0 mg/dLNormal1.9-2.7The [facility] MiamisburgComment on above:Order Comment: No: Do not add to previous drawPerformed By: #### 31323, 33871, 22128 ####[facility] [place] [address], USAOperative Reporton 28-34-1744Hmszwppbr Report NormalThe [facility] MiamisburgPHOSPHORUS BLOODon 05-21-2021 Phosphate [Mass/Vol]4.0 mg/dLNormal2.5-5.0The [facility] MiamisburgComment on above:Order Comment: No: Do not add to previous drawPerformed By: #### 06799, 64861, 34772 ####[facility] [place] [address], [place]APOC GLUCOSE LABon 72-85-9241Ihytnet [Mass/Vol]143 mg/dLDkqw79-503Leo [facility] MiamisburgComment on above:Performed By: #### 59702 ####[facility] [place] [address], USAGlucose [Mass/Vol]123 mg/sZZyhq27-888Xyn [facility] MiamisburgComment on above:Performed By: #### 43073 ####[facility] [place] [address], [facility] Glucose [Mass/Vol]128 mg/[id number] [facility] Comment on above:Performed By: #### [id number] ####[facility] [place] [address], [facility] CENTERGlucose [Mass/Vol]158 mg/dLHigh 70-100The [facility]burgComment on above:Performed By: #### [id number] ####[facility] [facility] [address], USAPORTABLE CHEST 1 VIEWon [id number] CHEST 1 VIEWNormalThe [facility]burgComment on above:Order Comment: evaluate for AtelectasisPROTHROMBIN TIMEon [id number] Coag (PPP) [Relative time]1.12 {INR} Normal0.91-1.16The [facility] [place]amisburgComment on above:Order Comment: No: Do not add to previous drawResult Comment: [facility] RECOMMENDED INR FOR WARFARIN THERAPY CONDITION INRPROPHYLAXIS OF VENOUS THROMBOSIS 2-3(HIGH-RISK SURGERY)TREATMENT OF VENOUS THROMBOSIS 2-3TREATMENT OF PULMONARY EMBOLISM 2-3PREVENTION OF SYSTEMIC EMBOLISM: 2-3 ACUTE MYOCARDIAL INFARCTION TISSUE HEART VALVES VALVULAR HEART DISEASE ATRIAL FIBRILLATION RECURRENT SYSTEMIC EMBOLISMMECHANICAL HEART VALVE 2.5-3.5 FROM: ORAL ANTICOAGULANTS. MECHANISM OF ACTION, CLINICALEFFECTIVENESS, AND OPTIMAL THERAPEU TIC RANGE. [id number];108:231S-246S.Performed By: #### [id number] ####[facility] [place] [address], USAPT Coag (PPP) [Time]14.4 nYwmhyf25.3-14.8The [facility] MiamisburgComment on above:Order Comment: No: Do not add to previous drawResult Comment: ALL RESULTS MUST BE INTERPRETED WITH RESPECT TO BLOOD DRAWING ARTIFACTOR DILUTION ERROR OF ANTICOAGULANT AT THE TIME OF SAMPLING.Performed By: #### 35143 ####[facility] [place] [address], USABASIC METABOLIC PANELon 81-28-3316Sojhhwu [Mass/Vol]8.8 mg/dLNormal8.6-10.3The [facility] [place]burgComment on above:Order Comment: No: Do not add to previous drawPerformed By: #### 43199, 37987, 42997 ####[facility] [place] [address], USAChloride [Moles/Vol]96 mmol/LLow 98-107The [facility] [place]amisburgComment on above:Order Comment: No: Do not add to previous drawPerformed By: #### 38409, 98573, 41938 ####[facility] [place] [address], [place] CO2 [Moles/Vol]33 mmol/ESnpz14-48Qop [facility] [place]burgComment on above:Order Comment: No: Do not add to previous drawPerformed By: #### 46295, 87970, 62795 ####[facility] [place] [address], USACreatinine [Mass/Vol]0.90 mg/dLNormal0.70-1.30The [facility] [place]burgComment on above:Order Comment: No: Do not add to previous drawPerformed By: #### 12486, 02654, 04339 ####[facility] [place] [address], USAGFR/1.73 sq M.predicted among blacks MDRD (S/P/Bld) [Vol rate/Area]mL/min/{1.73_m2}Normal>60The [facility] [place]amisburgComment on above:Order Comment: No: Do not add to previous drawResult Comment: Calculation may not be valid for patients over 70 years Performed By: #### 22925, 34551, 93510 ####[facility] [facility] [place] [address], USAGFR/1.73 sq M.predicted among non- blacks MDRD (S/P/Bld) [Vol rate/Area]mL/min/{1.73_m2}Normal>60The [facility] [place]burgComment on above:Order Comment: No: Do not add to previous drawResult Comment: Calculation may not be valid for patients over 70 years Performed By: #### 43721, 89680, 22383 ####[address] [place] [address], USAGlucose [Mass/Vol]113 mg/dLHigh 70-100The [facility] [place]burgComment on above:Order Comment: No: Do not add to previous drawPerformed By: #### 82442, 19107, 74826 ####[address] [place] [address], [place] Potassium [Moles/Vol]3.6 mmol/LNormal3.5-5.1The [facility] [place]burgComment on above:Order Comment: No: Do not add to previous drawPerformed By: #### 62244, 45213, 61287 ####[place] [address] [facility] [place] [address], USASodium [Moles/Vol]135 mmol/BPgm223-462Ypr [facility] [place]amisburgComment on above:Order Comment: No: Do not add to previous drawPerformed By: #### 46047, 54372, 85002 ####[facility] [place] [address] [place] [address], USAUrea nitrogen [Mass/Vol]15 mg/dLNormal7-25The [facility] [place]burgComment on above:Order Comment: No: Do not add to previous drawPerformed By: #### 77923, 86750, 52131 ####[facility] [place] [address], USACBC COMPLETE BLOOD COUNTon 33-72-2356Tlyapjjmfsd distribution width (RBC) [Ratio]14.1 %Posmhd15.5-15.0The [facility] [place] Comment on above:Order Comment: No: Do not add to previous drawPerformed By: #### 62840 ####[facility] [place] [address], USAHematocrit (Bld) [Volume fraction]28.9 %Low39.0-50.0The [facility] [place]burgComment on above:Order Comment: No: Do not add to previous drawPerformed By: #### 10655 ####[facility] [place] [address], [facility] CENTERHemoglobin (Bld) [Mass/Vol]8.9 g/dLLow 13.0-17.0The [facility] [place]burgComment on above:Order Comment: No: Do not add to previous drawPerformed By: #### 35184 ####[facility] [place] [address], USAMCH (RBC) [Entitic mass] 28.3 uzWddbxr28.0-33.0The [facility] [place]burgComment on above: Order Comment: No: Do not add to previous drawPerformed By: #### 12302 ####[facility] [place] [address], [place] MCHC (RBC) [Mass/Vol]30.8 g/dLLow32.0-35.0The [facility] [place]burgComment on above:Order Comment: No: Do not add to previous drawPerformed By: #### 78281 ####[facility] [place] [address], [facility] CENTERMCV (RBC) [Entitic vol]92.0 mYZwgzqk56.0-98.0The [facility] [place]amisburgComment on above:Order Comment: No: Do not add to previous drawPerformed By: #### 80051 ####[facility] [place] [address], USANucleated RBC/100 WBC (Bld) [Ratio]0 %Normal 0-0The [facility] [place]burgComment on above:Order Comment: No: Do not add to previous drawPerformed By: #### 84149 ####[facility] [place] [address], USAPLAT [id number] 10*3/uLNormal 150-400The [facility] [place]amisburgComment on above:Order Comment: No: Do not add to previous drawPerformed By: #### 18700 ####[facility] [place] [address], USARBC (Bld) [#/Vol]3.14 10*6/uLLow4.20-5.70The [facility] [place]burgComment on above:Order Comment: No: Do not add to previous drawPerformed By: #### 20250 ####[facility] [place] [address], USAWBC (Bld) [#/Vol]6.69 10*3/uLNormal4.00-10.60The [facility] [place] Comment on above:Order Comment: No: Do not add to previous drawPerformed By: #### 91906 ####[facility] [place] [address], USAErythrocyte distribution width (RBC) [Ratio]14.1 %Wbtmnt77.5-15.0The [facility] CenterComment on above:Order Comment: No: Do not add to previous drawPerformed By: #### 85263 ####[facility] [facility] [address], [facility] HEALTH CENTERHematocrit (Bld) [Volume fraction] 29.5 %Low39.0-50.0The [facility] [place]burgComment on above:Order Comment: No: Do not add to previous drawPerformed By: #### 70133 ####[facility] [facility] [place] [address], [facility] HE[facility] CENTERHemoglobin (Bld) [Mass/Vol]9.3 g/dLLow13.0-17.0The [facility] [place]amisburgComment on above:Order Comment: No: Do not add to previous drawPerformed By: #### 50374 ####[facility] [place] [address].[place] [address], [facility] MCH (RBC) [Entitic mass]28.2 jdKzlrbo99.0-33.0The [facility] [place]amisburgComment on above:Order Comment: No: Do not add to previous drawPerformed By: #### 19010 ####[facility] [facility] [address], [facility] CENTERMCHC (RBC) [Mass/Vol]31.5 g/dLLow32.0-35.0The [facility] [place]amisburgComment on above:Order Comment: No: Do not add to previous draw Performed By: #### 97136 ####[facility] [place] [address].[place] [address], [facility] CENTERMCV (RBC) [Entitic vol]89.4 gBBvigij14.0-98.0The [facility] [place]amisburgComment on above:Order Comment: No: Do not add to previous drawPerformed By: #### 95452 ####[facility] [place] [address].[place] [address], USANucleated RBC/100 WBC (Bld) [Ratio]0 %Normal0-0The [facility] [place]amisburgComment on above:Order Comment: No: Do not add to previous drawPerformed By: #### 93943 ####[facility] [place] [address], USAPLAT [id number] 10*3/tJBgqnpk250-074Zpp [facility] [place]amisburgComment on above: Order Comment: No: Do not add to previous drawPerformed By: #### 30280 ####[facility] [place] [address], [place] RBC (Bld) [#/Vol]3.30 10*6/uLLow4.20-5.70The [facility] [place] Comment on above:Order Comment: No: Do not add to previous drawPerformed By: #### 91860 ####[facility] [place] [address], [facility] CENTERWBC (Bld) [#/Vol]6.66 10*3/uLNormal4.00-10.60The [facility] [place]amisburgComment on above:Order Comment: No: Do not add to previous draw Performed By: #### 41059 ####[facility] [facility] [address], USAMAGNESIUM BLOODon 58-90-2659Cgmgdiqdj [Mass/Vol]1.9 mg/dLNormal1.9-2.7The [facility] [place]amisburgComment on above:Order Comment: No: Do not add to previous drawPerformed By: #### 08691, 51661, 01782 ####[facility] [place] [address], [place] PHOSPHORUS BLOODon 81-27-7340Myhmtowcu [Mass/Vol]3.7 mg/dLNormal2.5-5.0The [facility] [place]amisburgComment on above:Order Comment: No: Do not add to previous drawPerformed By: #### 63953, 89794, 14075 ####[facility] [place] [address], USAPOC GLUCOSE LABon 24-34-1306Cwmbkah [Mass/Vol]130 mg/gYKzce45-320Mwo [facility] MiamisburgComment on above:Performed By: #### 94692 ####[facility] [place] [address] [place] [address], USAGlucose [Mass/Vol]119 mg/dLHigh 70-100The [facility] [place]amisburgComment on above:Performed By: #### 88206 ####[facility] [place], [place] [address] [address], USAGlucose [Mass/Vol]118 mg/hBNwbu75-703Ypt [facility] MiamisburgComment on above:Performed By: #### 40100 ####[facility] [place], [place] [address] [address], USAGlucose [Mass/Vol]118 mg/dLHigh 70-100The [facility] [place]amisburgComment on above:Performed By: #### 39429 ####[address] [place] [address], USAGlucose [Mass/Vol]119 mg/fNMixa59-443Fji [facility] MiamisburgComment on above:Performed By: #### 46195 ####[address] [place] [address], USAPROTHROMBIN TIMEon [id number] Coag (PPP) [Relative time]1.09 {INR}Normal0.91-1.16The [facility] MiamisburgComment on above:Order Comment: No: Do not add to previous draw Result Comment: [facility] RECOMMENDED INR FOR WARFARIN THERAPY CONDITION INRPROPHYLAXIS OF VENOUS THROMBOSIS 2-3(HIGH-RISK SURGERY)TREATMENT OF VENOUS THROMBOSIS 2-3TREATMENT OF PULMONARY EMBOLISM 2-3PREVENTION OF SYSTEMIC EMBOLISM: 2-3 ACUTE MYOCARDIAL INFARCTION TISSUE HEART VALVES VALVULAR HEART DISEASE ATRIAL FIBRILLATION RECURRENT SYSTEMIC EMBOLISMMECHANICAL HEART VALVE 2.5-3.5 FROM: ORAL ANTICOAGULANTS. MECHANISM OF ACTION, CLINICALEFFECTIVENESS, AND OPTIMAL THERAPEU TIC RANGE. [id number];108:231S-246S.Performed By: #### 23687 ####[facility] [facility] [address], [facility] CENTERPT Coag (PPP) [Time]14.1 jZlhysk27.3-14.8The [facility] MiamisburgComment on above:Order Comment: No: Do not add to previous drawResult Comment: ALL RESULTS MUST BE INTERPRETED WITH RESPECT TO BLOOD DRAWING ARTIFACTOR DILUTION ERROR OF ANTICOAGULANT AT THE TIME OF SAMPLING.Performed By: #### 22301 ####[facility] [facility] [address], [facility] CENTERTYPE AND SCREENon 71-24-3539MMN INTERPRETATIONONoUC Medical Center Comment on above:Performed By: #### 22703 ####[facility] [facility] [address], [facility] CENTERRH INTERPRETATIONPositiveNoUC Medical CenterComment on above:Performed By: #### 00375 ####[place] [address] [facility].[address] *MRSA/MSSA DNA NASALon 05-19-2021*MRSA/MSSA DNA NASALClinical Report: (D) Specimen: NASAL SWAB Collected: 05/19/2021 10:27 Status: Final Last Updated: 05/19/2021 15:02 MSSA DNA (Final) Negative MRSA DNA (Final) NegativeNoMercy Hospital CenterComment on above:Performed By: #### 13369 ####[facility] [facility] [address], [facility]ALTH CENTERCBC W/DIFFon [id number] IMM GRANS0.0 10*3/uLNormal0.0-0.2The [facility] MiamisburgComment on above:Order Comment: No: Do not add to previous drawPerformed By: #### 93268 ####[facility] [facility] [place] [address], USAABS NEUTROPHILS4.3 10*3/uLNormal 1.6-7.6The [facility] [place]amisburgComment on above:Order Comment: No: Do not add to previous drawPerformed By: #### 09449 ####[facility] [facility] [place] [address], USABasophils (Bld) [#/Vol] 0.0 10*3/uLNormal0.0-0.2The [facility] [place]burgComment on above: Order Comment: No: Do not add to previous drawPerformed By: #### 47539 ####[facility] [facility] [place] [address], [place] Basophils/100 WBC (Bld)0.5 %Normal0.0-1.0The [facility] [place] Comment on above:Order Comment: No: Do not add to previous drawPerformed By: #### 51780 ####[facility] [facility] [place] [address], USAEosinophils (Bld) [#/Vol]0.2 10*3/uLNormal0.0-0.5The [facility] [place]amisburgComment on above:Order Comment: No: Do not add to previous drawPerformed By: #### 85224 ####[facility] [place] [address], USAEosinophils/100 WBC (Bld)3.1 %Normal0.0-6.0 The [facility] [place]amisburgComment on above:Order Comment: No: Do not add to previous drawPerformed By: #### 77141 ####[facility] [place] [address], USAErythrocyte distribution width (RBC) [Ratio]14.2 %Hvzqby15.5-15.0The [facility] [place] Comment on above:Order Comment: No: Do not add to previous drawPerformed By: #### 63391 ####[facility] [place] [address], USAHematocrit (Bld) [Volume fraction]29.0 %Low39.0-50.0The [facility] MiamisburgComment on above:Order Comment: No: Do not add to previous drawPerformed By: #### 70867 ####[facility] [place] [address], USAHemoglobin (Bld) [Mass/Vol]9.2 g/dLLow 13.0-17.0The [facility] [place]amisburgComment on above:Order Comment: No: Do not add to previous drawPerformed By: #### 47986 ####[facility] [place] [address], USAIMMATURE GRANS0.5 %Normal 0.0-1.0The [facility] [place]amisburgComment on above:Order Comment: No: Do not add to previous drawPerformed By: #### 92878 ####[facility] [facility] [place] [address], USALymphocytes (Bld) [#/Vol] 1.0 10*3/uLLow1.2-4.0The [facility] [place]amisburgComment on above: Order Comment: No: Do not add to previous drawPerformed By: #### 32870 ####[facility] [place] [address], [facility] Lymphocytes/100 WBC (Bld)15.9 %Low20.0-45.0The [facility] MiamisburgComment on above:Order Comment: No: Do not add to previous drawPerformed By: #### 83069 ####[facility] [place] [address], [facility] (RBC) [Entitic mass]28.5 odYjvvik12.0-33.0The [facility] MiamisburgComment on above:Order Comment: No: Do not add to previous drawPerformed By: #### 37416 ####[facility] [facility] [address], [facility] HEALTH CENTERMCHC (RBC) [Mass/Vol]31.7 g/dLLow32.0-35.0The [facility] [place]amisburgComment on above:Order Comment: No: Do not add to previous drawPerformed By: #### 83040 ####[facility] [facility] [address], [facility] CENTERMCV (RBC) [Entitic vol]89.8 fL Hhcflp05.0-98.0The [facility] MiamisburgComment on above:Order Comment: No: Do not add to previous drawPerformed By: #### 07093 ####[facility] [place] [address].[place] [address], [facility] HE[facility] CENTERMonocytes (Bld) [#/Vol]0.6 10*3/uLNormal0.1-1.0The [facility] [place]amisburgComment on above:Order Comment: No: Do not add to previous drawPerformed By: #### 03643 ####[facility] [facility] [address], [facility] MONOS10.2 %Normal5.0-12.0The [facility] [place]burgComment on above:Order Comment: No: Do not add to previous drawPerformed By: #### 22260 ####[facility] [facility] [address], [facility] Neutrophils/100 WBC (Bld)69.8 %Tteyzg89.0-72.0The [facility] [place]amisburgComment on above:Order Comment: No: Do not add to previous drawPerformed By: #### 19961 ####[facility] [id number], USANucleated RBC/100 WBC (Bld) [Ratio]0 %Normal0-0The [facility]amisburgComment on above:Order Comment: No: Do not add to previous drawPerformed By: #### 44194 ####[facility] [place] [address], USAPLAT AUP233 10*3/oERulijj621-436Gee [facility] MiamisburgComment on above:Order Comment: No: Do not add to previous drawPerformed By: #### 96378 ####[facility] [place] [address], [facility] CENTERRBC (Bld) [#/Vol]3.23 10*6/uLLow 4.20-5.70The [facility] [place]amisburgComment on above:Order Comment: No: Do not add to previous drawPerformed By: #### 75331 ####[facility] [place] [address], [facility] CENTERWBC (Bld) [#/Vol]6.09 10*3/uLNormal4.00-10.60The [facility]amisburgComment on above: Order Comment: No: Do not add to previous drawPerformed By: #### 70169 ####[facility] [place] [address], [place] COMP METABOLIC PANELon 37-93-4545Fxjyjhb [Mass/Vol]2.8 g/dLLow3.5-5.7The [facility]amisburgComment on above:Order Comment: No: Do not add to previous drawPerformed By: #### 53139, 83314, 96482 ####[facility] [place] [address], USAALKALINE [id number] IU/CBjjbpu51-843Ooh [facility] MiamisburgComment on above:Order Comment: No: Do not add to previous drawPerformed By: #### 57170, 43626, 39091 ####[facility] [place] [address], [place] ALT [Catalytic activity/Vol]9 U/LNormal7-52The [facility]amisburgComment on above:Order Comment: No: Do not add to previous drawPerformed By: #### 65944, 50616, 09403 ####[facility] [place] [address], USAAST [Catalytic activity/Vol]20 U/PNlnkvo41-90 The [facility] MiamisburgComment on above:Order Comment: No: Do not add to previous drawPerformed By: #### 50375, 43235, 98598 ####[facility] [place] [address], USABilirubin [Mass/Vol]0.6 mg/dLNormal0.3-1.0The [facility]amisburgComment on above:Order Comment: No: Do not add to previous drawPerformed By: #### 31322, 75041, 03406 ####[facility] [place] [address], USACalcium [Mass/Vol]8.5 mg/dLLow8.6-10.3The [facility]amisburgComment on above:Order Comment: No: Do not add to previous draw Performed By: #### 70903, 30057, 58920 ####[facility] [place] [address], USAChloride [Moles/Vol]98 mmol/L Gknnyy97-637Qqe [facility] MiamisburgComment on above:Order Comment: No: Do not add to previous drawPerformed By: #### 71213, 85757, 84067 ####[facility] [place] [address], [place] CO2 [Moles/Vol]31 mmol/BZedwnb72-60Oro [facility] [place] Comment on above:Order Comment: No: Do not add to previous drawPerformed By: #### 83678, 08213, 82713 ####[facility] [place] [address], USACreatinine [Mass/Vol]0.74 mg/dLNormal0.70-1.30The [facility]amisburgComment on above:Order Comment: No: Do not add to previous drawPerformed By: #### 50619, 41307, 91205 ####[facility] [place] [address], USAGFR/1.73 sq M.predicted among blacks MDRD (S/P/Bld) [Vol rate/Area]mL/min/{1.73_m2}Normal>60 The [facility] MiamisburgComment on above:Order Comment: No: Do not add to previous drawResult Comment: Calculation may not be valid for patients over 70 yearsPerformed By: #### 61166, 10072, 77721 ####[facility] [place] [address], USAGFR/1.73 sq M.predicted among non-blacks MDRD (S/P/Bld) [Vol rate/Area]mL/min/{1.73_m2} Normal>60The [facility]amisburgComment on above:Order Comment: No: Do not add to previous drawResult Comment: Calculation may not be valid for patients over 70 yearsPerformed By: #### 46733, 01720, 71347 ####[facility] [place] [address], USAGlucose [Mass/Vol] 143 mg/ySQeby55-379Bwx [facility]amisburgComment on above:Order Comment: No: Do not add to previous drawPerformed By: #### 67736, 98567, 93431 ####[facility] [place] [address], [place] Potassium [Moles/Vol]3.4 mmol/LLow3.5-5.1The [facility] Comment on above:Order Comment: No: Do not add to previous drawPerformed By: #### [id number], [id number], [id number] ####[facility] [place] [address], USAProtein [Mass/Vol]6.7 g/dLNormal6.0-8.3The [facility]burgComment on above:Order Comment: No: Do not add to previous drawPerformed By: #### [id number], [id number], [id number] ####[facility] [place] [address], USASodium [Moles/Vol]134 mmol/BZck875-770Iwj [facility]burgComment on above:Order Comment: No: Do not add to previous drawPerformed By: #### [id number], [id number], [id number] ####[facility] [place] [address], [place] Urea nitrogen [Mass/Vol]14 mg/dLNormal7-25The [facility]burgComment on above:Order Comment: No: Do not add to previous drawPerformed By: #### [id number], [id number], [id number] ####[facility] [place] [address], USAMAGNESIUM BLOODon [id number] [Mass/Vol]1.9 mg/dLNormal1.9-2.7The [facility]burgComment on above:Order Comment: No: Do not add to previous drawPerformed By: #### [id number], 62720, 14898 ####[facility] [place] [address], USAPHOSPHORUS BLOODon [id number] [Mass/Vol]3.1 mg/dLNormal 2.5-5.0The [facility]burgComment on above:Order Comment: No: Do not add to previous drawPerformed By: #### 92763, 67062, 19646 ####[facility] [place] [address], [facility] POC GLUCOSE LABon 43-58-1991Wfkqhdd [Mass/Vol]124 mg/eMJhlk32-393Nuk [facility]amisburgComment on above:Performed By: #### [id number] ####[facility] [place] [address], USAGlucose [Mass/Vol]132 mg/cAOeto09-691Bxp [facility]amisburgComment on above:Performed By: #### 90689 ####[facility] [place] [address], USAGlucose [Mass/Vol]153 mg/fLCtxa29-430Eiy [facility]burgComment on above:Performed By: #### 25219 ####[facility] [facility] [place] [address], [place] Glucose [Mass/Vol]133 mg/eIEwum71-595Pyf [facility] Comment on above:Performed By: #### 93527 ####[facility] [facility] [address], [facility] SARS COV2 ANTIGEN NEGATIVEon 02-01-5715CSB SARS COV2 ANTIGEN NEGNegativeNormalNEGATIVEThe [facility] MiamisburgComment on above:Result Comment: Negative results from patients with symptom onset beyond [...] of clinicalsigns and symptoms consistent with COVID-19.The [employer] COVID-19 Ag Card is a lateral flow immunoassay intended forthe qualitative detection of nucleocapsid protein antigen iignRATD-FzA-0 in direct nasal swabs from individuals within [...] of Waiver, Certificate of Compliance, or Certificate ofAccreditation.Performed By: #### [id number] ####[facility] [facility] [address], [facility] CENTERVANCOMYCIN TIMEDon 62-14-8013ZLINFNAFPJ TIMED16.3 mcg/mLNormalThe [facility]amisburgComment on above:Performed By: #### 37215 ####[facility] [facility] [place] [address], [facility] CBC W/DIFFon 32-16-4320KXT IMM GRANS0.0 10*3/uLNormal0.0-0.2The [facility]amisburgComment on above:Order Comment: No: Do not add to previous drawPerformed By: #### [id number] ####[facility] [facility] [address], [facility] CENTERABS NEUTROPHILS5.1 10*3/uLNormal1.6-7.6The [facility]amisburgComment on above:Order Comment: No: Do not add to previous drawPerformed By: #### 57968 ####[address] [place] [address], [facility] CENTERBasophils (Bld) [#/Vol]0.0 10*3/uL Normal0.0-0.2The [facility]burgComment on above:Order Comment: No: Do not add to previous drawPerformed By: #### [id number] ####[facility] [facility] [place] [address], [facility] CENTERBasophils/100 WBC (Bld)0.4 %Normal0.0-1.0The [facility]amisburgComment on above:Order Comment: No: Do not add to previous drawPerformed By: #### 90894 ####[facility] [place] [address], [facility] Eosinophils (Bld) [#/Vol]0.2 10*3/uLNormal0.0-0.5The [facility]burgComment on above:Order Comment: No: Do not add to previous draw Performed By: #### 85644 ####[facility] [place] [address], [facility]ENTEREosinophils/100 WBC (Bld)2.6 %Normal0.0-6.0The [facility]amisburgComment on above:Order Comment: No: Do not add to previous drawPerformed By: #### 68463 ####[place] [address], [facility] CENTERErythrocyte distribution width (RBC) [Ratio]14.1 %Mzvzcz04.5-15.0The [facility]burgComment on above:Order Comment: No: Do not add to previous drawPerformed By: #### 40766 ####[place] [address], [facility] Hematocrit (Bld) [Volume fraction]27.5 %Low39.0-50.0The [facility]amisburgComment on above:Order Comment: No: Do not add to previous draw Performed By: #### 22577 ####[place] [address], [facility] CENTERHemoglobin (Bld) [Mass/Vol]8.6 g/dLLow13.0-17.0The [facility]burgComment on above:Order Comment: No: Do not add to previous drawPerformed By: #### 96998 ####[facility] [place] [address], USAIMMATURE GRANS0.1 %Normal0.0-1.0 The [facility]amisburgComment on above:Order Comment: No: Do not add to previous drawPerformed By: #### 30509 ####[facility] [place] [address], [facility] CENTERLymphocytes (Bld) [#/Vol] 1.3 10*3/uLNormal1.2-4.0The [facility]burgComment on above: Order Comment: No: Do not add to previous drawPerformed By: #### 82304 ####[facility] [facility] [address], [facility] Lymphocytes/100 WBC (Bld)18.0 %Low20.0-45.0The [facility]burgComment on above:Order Comment: No: Do not add to previous drawPerformed By: #### 91684 ####[facility] [facility] [address], [facility] (RBC) [Entitic mass]28.7 guXasgno51.0-33.0The [facility]burgComment on above:Order Comment: No: Do not add to previous drawPerformed By: #### [id number] ####[facility] [facility] [place] [address], [facility] (RBC) [Mass/Vol]31.3 g/dLLow32.0-35.0The [facility]burgComment on above:Order Comment: No: Do not add to previous drawPerformed By: #### [id number] ####[facility] [place] [address].[place] [address], [facility] (RBC) [Entitic vol]91.7 fL Hnonpu74.0-98.0The [facility]burgComment on above:Order Comment: No: Do not add to previous drawPerformed By: #### 32032 ####[facility] [place] [address], [facility]ENTERMonocytes (Bld) [#/Vol]0.7 10*3/uLNormal0.1-1.0The [facility]burgComment on above:Order Comment: No: Do not add to previous drawPerformed By: #### 14902 ####[facility] [place] [address], [place] MONOS10.0 %Normal5.0-12.0The [facility]amisburgComment on above:Order Comment: No: Do not add to previous drawPerformed By: #### 69586 ####[facility] [place] [address], [place] Neutrophils/100 WBC (Bld)68.9 %Bkduus46.0-72.0The [facility]burgComment on above:Order Comment: No: Do not add to previous drawPerformed By: #### 84705 ####[facility] [place] [address], USANucleated RBC/100 WBC (Bld) [Ratio]0 %Normal0-0The [facility]burgComment on above:Order Comment: No: Do not add to previous drawPerformed By: #### 49519 ####[facility] [facility] [address], USAPLAT PFR846 10*3/yYRvppzn513-618Lvo [facility]burgComment on above:Order Comment: No: Do not add to previous drawPerformed By: #### 22322 ####[facility] [place] [address], USARBC (Bld) [#/Vol]3.00 10*6/uLLow 4.20-5.70The [facility]burgComment on above:Order Comment: No: Do not add to previous drawPerformed By: #### 54010 ####[facility] [place] [address], USAWBC (Bld) [#/Vol]7.40 10*3/uLNormal4.00-10.60The [facility]burgComment on above: Order Comment: No: Do not add to previous drawPerformed By: #### 26765 ####[facility] [place] [address], [place] COMP METABOLIC PANELon 55-00-6319Gggczha [Mass/Vol]2.7 g/dLLow3.5-5.7The [facility]burgComment on above:Order Comment: No: Do not add to previous drawPerformed By: #### 84734, 50681, 51844, 27165 ####[facility] [place] [address], USAALKALINE PHOSPH 62 IU/NWxpiye94-089Dbu [facility]burgComment on above:Order Comment: No: Do not add to previous drawPerformed By: #### 23718, 68003, 79311, 15991 ####[facility] [place] [address], USAALT [Catalytic activity/Vol]11 U/LNormal7-52The [facility]burgComment on above:Order Comment: No: Do not add to previous draw Performed By: #### 46185, 50228, 79304, 57443 ####[facility] [place] [address], USAAST [Catalytic activity/Vol]31 U/L Khichj80-70Faq [facility]burgComment on above:Order Comment: No: Do not add to previous drawPerformed By: #### 38066, 65639, 13621, 78080 ####[facility] [place] [address], USABilirubin [Mass/Vol]0.8 mg/dLNormal0.3-1.0The [facility]burgComment on above:Order Comment: No: Do not add to previous drawPerformed By: #### 39194, 08261, 13035, 44005 ####[facility] [place] [address], USACalcium [Mass/Vol]8.0 mg/dLLow8.6-10.3The [facility]burgComment on above:Order Comment: No: Do not add to previous drawPerformed By: #### 35445, 01612, 40080, 72837 ####[facility] [place] [address], USAChloride [Moles/Vol]98 mmol/SOqhxao01-708Psr [facility]burgComment on above:Order Comment: No: Do not add to previous drawPerformed By: #### 86451, 38717, 28635, 98705 ####[facility] [place] [address], USACO2 [Moles/Vol]33 mmol/QFkka36-63Vdb [facility]burgComment on above:Order Comment: No: Do not add to previous drawPerformed By: #### 48556, 00365, 46988, 92393 ####[facility] [place] [address], USACreatinine [Mass/Vol]0.89 mg/dLNormal0.70-1.30The [facility]burgComment on above: Order Comment: No: Do not add to previous drawPerformed By: #### 63826, 27762, 17732, 50242 ####[facility] [place] [address], USAGFR/1.73 sq M.predicted among blacks MDRD (S/P/Bld) [Vol rate/Area] mL/min/{1.73_m2}Normal>60The [facility]burgComment on above:Order Comment: No: Do not add to previous drawResult Comment: Calculation may not be valid for patients over 70 yearsPerformed By: #### 54976, 68264, 97197, 89560 ####[facility] [facility] [place] [address], USAGFR/1.73 sq M.predicted among non-blacks MDRD (S/P/Bld) [Vol rate/Area]mL/min/{1.73_m2}Normal>60The [facility] Comment on above:Order Comment: No: Do not add to previous drawResult Comment: Calculation may not be valid for patients over 70 yearsPerformed By: #### 83577, 78308, 09541, 13241 ####[facility] [place] [address], USAGlucose [Mass/Vol]108 mg/mUBmql91-434Fqb [facility]burgComment on above:Order Comment: No: Do not add to previous drawPerformed By: #### 21401, 33455, 22855, 91651 ####[facility] [facility] [place] [address], USAPotassium [Moles/Vol]3.7 mmol/LNormal3.5-5.1The [facility]burgComment on above:Order Comment: No: Do not add to previous drawPerformed By: #### 87290, 98056, 70507, 29964 ####[facility] [place] [address], USAProtein [Mass/Vol]6.6 g/dLNormal6.0-8.3The [facility]burgComment on above:Order Comment: No: Do not add to previous draw Performed By: #### 33412, 01577, 08511, 18424 ####[facility] [facility] [place] [address], USASodium [Moles/Vol]136 mmol/LNormal 136-145The [facility]burgComment on above:Order Comment: No: Do not add to previous drawPerformed By: #### 25162, 31335, 91293, 78099 ####[facility] [place] [address], [facility] Urea nitrogen [Mass/Vol]16 mg/dLNormal7-25The [facility]burgComment on above:Order Comment: No: Do not add to previous drawPerformed By: #### 88981, 99626, 70762, 96705 ####[facility] [place] [address], USAMAGNESIUM BLOODon 12-88-2062Gtyczowbz [Mass/Vol]1.9 mg/dLNormal1.9-2.7The [facility]burgComment on above:Order Comment: No: Do not add to previous drawPerformed By: #### 12316, 60085, 76959, 66409 ####[facility] [place] [address], USAPHOSPHORUS BLOODon 80-83-8273Wuveuocsa [Mass/Vol]4.2 mg/dLNormal2.5-5.0The [facility]burgComment on above:Order Comment: No: Do not add to previous drawPerformed By: #### 60513, 84900, 63569, 74355 ####[facility] [facility] [address], USAPOC GLUCOSE LABon 63-39-3405Wpantvc [Mass/Vol]152 mg/bDKltv76-571Otp [facility]burgComment on above:Performed By: #### 36469 ####[facility] [place] [address], [place] Glucose [Mass/Vol]140 mg/rIOnzp59-140Zpi [facility] Comment on above:Performed By: #### 20128 ####[facility] [place] [address], USAGlucose [Mass/Vol]202 mg/dLHigh 70-100The [facility]amisburgComment on above:Performed By: #### 95669 ####[facility] [place] [address], USAGlucose [Mass/Vol]121 mg/wPAmxr32-193Wmb [facility]burgComment on above:Performed By: #### 35089 ####[facility] [place] [address], USAPORTABLE CHEST 1 VIEWon 24-84-6154IVJESWNJ CHEST 1 VIEWNormalThe [facility] Comment on above:Order Comment: EValuate for EffusionVANCOMYCIN TIMEDon 58-12-6576YHKFFZKYDA TIMED10.2 mcg/mLNormalThe [facility]burgComment on above:Performed By: #### 28843, 75564, 51994, 81707 ####[facility] [place] [address], [place] CBC W/DIFFon 61-94-4439WLT IMM GRANS0.0 10*3/uLNormal0.0-0.2The [facility]burgComment on above:Order Comment: No: Do not add to previous drawPerformed By: #### 47365 ####[facility] [place] [address], USAABS NEUTROPHILS3.6 10*3/uLNormal1.6-7.6The [facility]burgComment on above:Order Comment: No: Do not add to previous drawPerformed By: #### 52440 ####[facility] [place] [address], USABasophils (Bld) [#/Vol]0.1 10*3/uL Normal0.0-0.2The [facility]burgComment on above:Order Comment: No: Do not add to previous drawPerformed By: #### 20956 ####[facility] [place] [address], USABasophils/100 WBC (Bld)0.9 %Normal0.0-1.0The [facility]burgComment on above:Order Comment: No: Do not add to previous drawPerformed By: #### 85487 ####[facility] [place] [address], [facility] Eosinophils (Bld) [#/Vol]0.1 10*3/uLNormal0.0-0.5The [facility]burgComment on above:Order Comment: No: Do not add to previous draw Performed By: #### 29400 ####[facility] [facility] [address], [facility]ENTEREosinophils/100 WBC (Bld)0.9 %Normal0.0-6.0The [facility]burgComment on above:Order Comment: No: Do not add to previous drawPerformed By: #### 27691 ####[facility] [facility] [address], [facility] CENTERErythrocyte distribution width (RBC) [Ratio]14.6 %Hebmfv55.5-15.0The [facility]burgComment on above:Order Comment: No: Do not add to previous drawPerformed By: #### 07112 ####[place] [address] [facility] [place] [address], [facility] Hematocrit (Bld) [Volume fraction]27.7 %Low39.0-50.0The [facility]burgComment on above:Order Comment: No: Do not add to previous draw Performed By: #### 15563 ####[facility] [facility] [place] [address], [facility] CENTERHemoglobin (Bld) [Mass/Vol]8.5 g/dLLow13.0-17.0The [facility]burgComment on above:Order Comment: No: Do not add to previous drawPerformed By: #### 91788 ####[address] [place] [address], [facility] CENTERIMMATURE GRANS0.5 %Normal0.0-1.0 The [facility]amisburgComment on above:Order Comment: No: Do not add to previous drawPerformed By: #### 43494 ####[facility] [place] [address].[place] [address], [facility] CENTERLymphocytes (Bld) [#/Vol] 1.4 10*3/uLNormal1.2-4.0The [facility]burgComment on above: Order Comment: No: Do not add to previous drawPerformed By: #### 95460 ####[address] [place] [address], [facility] Lymphocytes/100 WBC (Bld)23.3 %Huevki39.0-45.0The [facility]burgComment on above:Order Comment: No: Do not add to previous drawPerformed By: #### 24978 ####[place] [address] [facility] [place] [address], [facility] (RBC) [Entitic mass]28.4 krJdwnzz29.0-33.0The [facility]burgComment on above:Order Comment: No: Do not add to previous drawPerformed By: #### 74865 ####[address] [place] [address], [facility] (RBC) [Mass/Vol]30.7 g/dLLow32.0-35.0The [facility]burgComment on above:Order Comment: No: Do not add to previous drawPerformed By: #### 45201 ####[address] [place] [address], [facility] (RBC) [Entitic vol]92.6 fL Qcacxm49.0-98.0The [facility]amisburgComment on above:Order Comment: No: Do not add to previous drawPerformed By: #### 45846 ####[facility] [place] [address], [facility] CENTERMonocytes (Bld) [#/Vol]0.7 10*3/uLNormal0.1-1.0The [facility]burgComment on above:Order Comment: No: Do not add to previous drawPerformed By: #### 40085 ####[facility] [place] [address], [place] MONOS11.7 %Normal5.0-12.0The [facility] MiamisburgComment on above:Order Comment: No: Do not add to previous drawPerformed By: #### 03983 ####[facility] [place] [address], [facility] Neutrophils/100 WBC (Bld)62.7 %Faidkw97.0-72.0The [facility]amisburgComment on above:Order Comment: No: Do not add to previous drawPerformed By: #### 99022 ####[facility] [place] [address], [facility] CENTERNucleated RBC/100 WBC (Bld) [Ratio]0 %Normal0-0The [facility]burgComment on above:Order Comment: No: Do not add to previous drawPerformed By: #### 38657 ####[facility] [place] [address], USAPLAT QKR754 10*3/jSDctdiw874-518Eps [facility]burgComment on above:Order Comment: No: Do not add to previous drawPerformed By: #### 16455 ####[facility] [place] [address], USARBC (Bld) [#/Vol]2.99 10*6/uLLow 4.20-5.70The [facility]amisburgComment on above:Order Comment: No: Do not add to previous drawPerformed By: #### 84510 ####[facility] [place] [address], [facility] CENTERWBC (Bld) [#/Vol]5.79 10*3/uLNormal4.00-10.60The [facility]amisburgComment on above: Order Comment: No: Do not add to previous drawPerformed By: #### 62715 ####[facility] [place] [address], [facility] COMP METABOLIC PANELon 18-68-4094Nwivzuc [Mass/Vol]2.8 g/dLLow3.5-5.7The [facility]burgComment on above:Order Comment: No: Do not add to previous drawPerformed By: #### 36503, 74230, 84023 ####[facility] [place] [address], [facility] CENTERALKALINE [id number] IU/YXulslr43-344Sso [facility]burgComment on above:Order Comment: No: Do not add to previous drawPerformed By: #### 81405, 55448, 10104 ####[facility] [place] [address], [place] ALT [Catalytic activity/Vol]7 U/LNormal7-52The [facility]burgComment on above:Order Comment: No: Do not add to previous drawPerformed By: #### 55884, 89751, 35480 ####[facility] [place] [address], USAAST [Catalytic activity/Vol]11 U/MOfa03-01Udn [facility]burgComment on above:Order Comment: No: Do not add to previous drawPerformed By: #### 03587, 18895, 39528 ####[facility] [place] [address], USABilirubin [Mass/Vol]0.6 mg/dLNormal0.3-1.0The [facility]burgComment on above:Order Comment: No: Do not add to previous drawPerformed By: #### 56077, 97935, 67430 ####[facility] [place] [address], USACalcium [Mass/Vol]8.2 mg/dLLow8.6-10.3The [facility]burgComment on above:Order Comment: No: Do not add to previous draw Performed By: #### 98743, 04284, 83858 ####[facility] [place] [address], USAChloride [Moles/Vol]102 mmol/L Vzwfza22-968Ncg [facility]burgComment on above:Order Comment: No: Do not add to previous drawPerformed By: #### 13733, 70578, 65495 ####[facility] [place] [address], [place] CO2 [Moles/Vol]31 mmol/XXpsooq39-80Twx [facility] Comment on above:Order Comment: No: Do not add to previous drawPerformed By: #### 74770, 07621, 44704 ####[facility] [place] [address], USACreatinine [Mass/Vol]1.19 mg/dLNormal0.70-1.30The [facility]Comment [facility]:Order Comment: No: Do not add to previous drawPerformed By: #### [id number], [id number], [id number] ####[facility] [place] [address], USAeGFR- non- Xhpzcggl68 ml/min/1.73sq mAbnormal>60The [facility] Comment on above:Order Comment: No: Do not add to previous drawResult Comment: Calculation may not be valid for patients over 70 yearsPerformed By: #### [id number], [id number], [id number] ####[facility] [place] [address], USAGFR/1.73 sq M.predicted among blacks MDRD (S/P/Bld) [Vol rate/Area] mL/min/{1.73_m2}Normal>60The [facility]:Order Comment: No: Do not add to previous drawResult Comment: Calculation may not be valid for patients over 70 yearsPerformed By: #### [id number], [id number], [id number] ####[facility] [place] [address], USAGlucose [Mass/Vol]99 mg/sHPdebag92-630Rwr [facility]Comment [facility]:Order Comment: No: Do not add to previous drawPerformed By: #### [id number], [id number], [id number] ####[facility] [place] [address], USAPotassium [Moles/Vol]3.7 mmol/LNormal3.5-5.1 The [facility]Comment on above:Order Comment: No: Do not add to previous drawPerformed By: #### [id number], [id number], 29338 ####[facility] [place] [address], USAProtein [Mass/Vol] 6.6 g/dLNormal6.0-8.3The [facility]Comment on above: Order Comment: No: Do not add to previous drawPerformed By: #### 91024, 27563, 21716 ####[facility] [place] [address], USASodium [Moles/Vol]138 mmol/DTgpqqo267-810Wuw [facility]burgComment on above:Order Comment: No: Do not add to previous draw Performed By: #### 24244, 36658, 49866 ####[facility] [place] [address], USAUrea nitrogen [Mass/Vol]16 mg/dL Normal7-25The [facility] MiamisburgComment on above:Order Comment: No: Do not add to previous drawPerformed By: #### 79890, 11742, 50409 ####[facility] [place] [address], [place] MAGNESIUM BLOODon 87-38-8124Jnawpbiye [Mass/Vol]2.0 mg/dLNormal1.9-2.7The [facility]amisburgComment on above:Order Comment: No: Do not add to previous drawPerformed By: #### 11220, 68928, 66929 ####[facility] [place] [address], USAPHOSPHORUS BLOODon 79-25-2579Ywmiergan [Mass/Vol]4.6 mg/dLNormal2.5-5.0The [facility]amisburgComment on above:Order Comment: No: Do not add to previous draw Performed By: #### 86682, 08833, 99240 ####[facility] [place] [address], USAPOC GLUCOSE LABon 05-17-2021 Glucose [Mass/Vol]139 mg/wRZhob54-666Sob [facility] Comment on above:Performed By: #### 45256 ####[facility] [place] [address], USAGlucose [Mass/Vol]100 mg/dLNormal 70-100The [facility] MiamisburgComment on above:Performed By: #### 42836 ####[facility] [place] [address], USAGlucose [Mass/Vol]122 mg/qQKuhh20-312Ngz [facility]burgComment on above:Performed By: #### 16036 ####[facility] [place] [address], USAGlucose [Mass/Vol]107 mg/dLHigh 70-100The [facility]amisburgComment on above:Performed By: #### 40920 ####[facility] [facility] [address], [facility] HEALTH CENTERPORTABLE CHEST 1 VIEWon 41-08-2716GMEJYOPO CHEST 1 VIEWMcCullough-Hyde Memorial HospitalComment on above:Order Comment: evaluate for Atelectasis*ANAEROBIC CULTUREon 05-16-2021*ANAEROBIC CULTUREClinical Report: (D) Specimen/Source: TISSUE/INTRAOP SPEC Collected: 05/16/2021 10:48 Status: Final Last Updated: 05/21/2021 08:50 (1) STERNAL TISSUE ISO (Final) No Anaerobes Isolated Day 5[facility] HospitalComment on above:Order Comment: STERNAL TISSUEPerformed By: #### 35695 ####[facility]*ANAEROBIC CULTURE Clinical Report: (D) Specimen/Source: SWAB/INTRAOP SPEC Collected: 05/16/2021 10:45 Status: Final Last Updated: 05/21/2021 08:50 (1) STERNAL WOUND ISO (Final) No Anaerobes Isolated Day 5[facility] HospitalComment on above:Order Comment: STERNAL WOUNDPerformed By: #### 95921 ####[facility] [place], [place] [address] [place] [address]*TISSUE CULTUREon 05-16-2021*TISSUE CULTURENoUC Medical CenterComment on above:Order Comment: STERNAL TISSUEPerformed By: #### 02277 ####[facility] [place] [address], [facility]*WOUND CULTUREon 05-16-2021*WOUND CULTURENoUC Medical CenterComment on above:Order Comment: STERNAL WOUNDPerformed By: #### 35153 ####[facility] [place] [address], [facility] HE[facility] CENTERAPTTon 05-16-2021 aPTT Coag (Bld) [Time]32.6 jCllfoa18.0-35.0The [facility]amisburgComment on above:Order Comment: No: Do not add to previous drawResult Comment: ALL RESULTS MUST BE INTERPRETED WITH RESPECT TO BLOOD DRAWING ARTIFACTOR DILUTION ERROR OF ANTICOAGULANT AT THE TIME OF SAMPLING.THE APTT SHOULD NOT BE USED TO MONITOR UNFRACTIONATED HEPARIN THERAPY, THIS LABORATORY NO LONGER HAS AN ESTABLISHED THERAPEUTIC RANGE BASEDON THE APTT. IT IS RECOMMENDED THAT THE UFH - HEPARIN ASSAY (ANTI-XAACTIVITY) BE USED FOR THIS PURPOSE.Performed By: #### 20359, 69756 ####[facility] [place] [address], USABASIC METABOLIC PANELon 05-16-2021 Calcium [Mass/Vol]8.5 mg/dLLow8.6-10.3The [facility] Comment on above:Order Comment: No: Do not add to previous drawPerformed By: #### 98161, 08065, 58070 ####[facility] [place] [address], USAChloride [Moles/Vol]101 mmol/JNwggso65-612Ivd [facility]burgComment on above:Order Comment: No: Do not add to previous drawPerformed By: #### 64141, 72413, 94826 ####[facility] [place] [address], USACO2 [Moles/Vol]31 mmol/AIozzah55-17Suf [facility]burgComment on above:Order Comment: No: Do not add to previous drawPerformed By: #### 02424, 12139, 09394 ####[facility] [place] [address], [place] Creatinine [Mass/Vol]0.66 mg/dLLow0.70-1.30The [facility]burgComment on above:Order Comment: No: Do not add to previous drawPerformed By: #### 26073, 59564, 34241 ####[facility] [place] [address], USAGFR/1.73 sq M.predicted among blacks MDRD (S/P/Bld) [Vol rate/Area]mL/min/{1.73_m2}Normal>60The [facility] MiamisburgComment on above:Order Comment: No: Do not add to previous draw Result Comment: Calculation may not be valid for patients over 70 yearsPerformed By: #### 64806, 98811, 07250 ####[facility] [place] [address], USAGFR/1.73 sq M.predicted among non-blacks MDRD (S/P/Bld) [Vol rate/Area]mL/min/{1.73_m2}Normal>60The [facility]burgComment on above:Order Comment: No: Do not add to previous draw Result Comment: Calculation may not be valid for patients over 70 yearsPerformed By: #### 01902, 95860, 12216 ####[facility] [place] [address], USAGlucose [Mass/Vol]117 mg/mPSore32-973Kdt [facility]burgComment on above:Order Comment: No: Do not add to previous drawPerformed By: #### 06568, 88410, 30240 ####[facility] [place] [address], USAPotassium [Moles/Vol]4.1 mmol/LNormal3.5-5.1The [facility]amisburgComment on above:Order Comment: No: Do not add to previous drawPerformed By: #### 55842, 26705, 89621 ####[facility] [place] [address], USASodium [Moles/Vol]136 mmol/QJtpqfq625-456Xlq [facility]burgComment on above:Order Comment: No: Do not add to previous drawPerformed By: #### 58447, 13916, 66676 ####[facility] [place] [address], USAUrea nitrogen [Mass/Vol]11 mg/dLNormal7-25The [facility]burgComment on above:Order Comment: No: Do not add to previous drawPerformed By: #### 43344, 90294, 50547 ####[facility] [facility] [address], [facility] CBC COMPLETE BLOOD COUNTon 55-47-9058Wbdfmkgaaje distribution width (RBC) [Ratio]14.5 %Ejzuch88.5-15.0The [facility]amisburgComment on above:Order Comment: No: Do not add to previous drawPerformed By: #### 48543 ####[facility] [facility] [address], [facility] Hematocrit (Bld) [Volume fraction]30.5 %Low39.0-50.0The [facility]amisburgComment on above:Order Comment: No: Do not add to previous draw Performed By: #### 47852 ####[facility] [facility] [place] [address], [facility] HEALTH CENTERHemoglobin (Bld) [Mass/Vol]9.5 g/dLLow13.0-17.0The [facility]burgComment on above:Order Comment: No: Do not add to previous drawPerformed By: #### 95206 ####[facility] [place] [address], [facility] HEALTH CENTERMCH (RBC) [Entitic mass]28.5 pg Prjink33.0-33.0The [facility]amisburgComment on above:Order Comment: No: Do not add to previous drawPerformed By: #### 95672 ####[facility] [facility] [place] [address], [facility] CENTERMCHC (RBC) [Mass/Vol]31.1 g/dLLow32.0-35.0The [facility]burgComment on above:Order Comment: No: Do not add to previous drawPerformed By: #### 98681 ####[facility] [place] [address], [facility] MCV (RBC) [Entitic vol]91.6 cWCuylev30.0-98.0The [facility]burgComment on above:Order Comment: No: Do not add to previous drawPerformed By: #### 45443 ####[facility] [place] [address], USANucleated RBC/100 WBC (Bld) [Ratio]0 %Normal0-0The [facility]amisburgComment on above:Order Comment: No: Do not add to previous drawPerformed By: #### 38094 ####[facility] [place] [address], USAPLAT STN791 10*3/aNFnlikr889-178Rdz [facility]burgComment on above:Order Comment: No: Do not add to previous drawPerformed By: #### 51217 ####[facility] [facility] [address], [facility] HEALTH CENTERRBC (Bld) [#/Vol]3.33 10*6/uLLow 4.20-5.70The [facility]burgComment on above:Order Comment: No: Do not add to previous drawPerformed By: #### 21806 ####[facility] [place] [address].[place] [address], [facility] HE[facility] CENTERWBC (Bld) [#/Vol]5.98 10*3/uLNormal4.00-10.60The [facility]burgComment on above: Order Comment: No: Do not add to previous drawPerformed By: #### 75110 ####[facility] [place] [address], [facility] LACTATE BLOODon 71-36-9419Ezrilst [Moles/Vol]0.6 mmol/LNormal.5-2.2The [facility]burgComment on above:Order Comment: No: Do not add to previous drawPerformed By: #### 39003 ####[facility] [place] [address], USALactate [Moles/Vol]0.8 mmol/L Normal.5-2.2The [facility]burgComment on above:Order Comment: No: Do not add to previous drawPerformed By: #### 36942 ####[facility] [place] [address], USAMAGNESIUM BLOOD on 99-56-8722Mjljpzgya [Mass/Vol]1.9 mg/dLNormal1.9-2.7The [facility]burgComment on above:Order Comment: No: Do not add to previous draw Performed By: #### 65380, 32587, 53136 ####[facility] [place] [address], USAOSMOLALITY BLOODon 05-16-2021 Osmolality [Osmolality]292 mosm/iaNjmkcx461-482Jut [facility]burgComment on above:Order Comment: No: Do not add to previous drawPerformed By: #### 87621, 37222 ####[facility] [place] [address], USAOsmolality [Osmolality]297 mosm/fvTyilui689-260Csq [facility]burgComment on above:Order Comment: No: Do not add to previous drawPerformed By: #### 10641, 77592 ####[facility] [place] [address], USAPHOSPHORUS BLOODon 66-66-2512Oahasuorb [Mass/Vol]4.3 mg/dLNormal2.5-5.0The [facility]burgComment on above:Order Comment: No: Do not add to previous draw Performed By: #### 19271, 59953, 03148 ####[facility] [place] [address], USAPOC GLUCOSE LABon 05-16-2021 Glucose [Mass/Vol]121 mg/hRSgco86-003Rpx [facility] Comment on above:Performed By: #### 02088 ####[facility] [place] [address], USAGlucose [Mass/Vol]126 mg/dLHigh 70-100The [facility] MiamisburgComment on above:Performed By: #### 80514 ####[facility] [place] [address], USAGlucose [Mass/Vol]133 mg/lOBiyh75-914Jrk [facility]burgComment on above:Performed By: #### 93778 ####[facility] [place] [address], USAGlucose [Mass/Vol]131 mg/dLHigh 70-100The [facility] MiamisburgComment on above:Performed By: #### 59394 ####[facility] [facility] [place] [address], USAPORTABLE CHEST 1 VIEWon 82-23-5142WONDLQFT CHEST 1 [facility] CenterComment on above:Order Comment: Check NG Tube PositionPORTABLE CHEST 1 [facility] Comment on above:Order Comment: Evaluate AtelectasisPROTHROMBIN TIMEon 92-17-1089QCY Coag (PPP) [Relative time]1.15 {INR}Normal0.91-1.16The [facility] MiamisburgComment on above:Order Comment: No: Do not add to previous drawResult Comment: ACCCP RECOMMENDED INR FOR WARFARIN THERAPY CONDITION INRPROPHYLAXIS OF VENOUS THROMBOSIS 2-3(HIGH-RISK SURGERY)TREATMENT OF VENOUS THROMBOSIS 2-3TREATMENT OF PULMONARY EMBOLISM 2-3PREVENTION OF SYSTEMIC EMBOLISM: 2-3 ACUTE MYOCARDIAL INFARCTION TISSUE HEART VALVES VALVULAR HEART DISEASE ATRIAL FIBRILLATION RECURRENT SYSTEMIC EMBOLISMMECHANICAL HEART VALVE 2.5-3.5 FROM: ORAL ANTICOAGULANTS. MECHANISM OF ACTION, CLINICALEFFECTIVENESS, AND OPTIMAL THERAPEU TIC RANGE. [id number];108:231S-246S.Performed By: #### 37266, 35984 ####[facility] [facility] [address], [facility] PT Coag (PPP) [Time]14.7 wEvrijm58.3-14.8The [facility] Comment on above:Order Comment: No: Do not add to previous drawResult Comment: ALL RESULTS MUST BE INTERPRETED WITH RESPECT TO BLOOD DRAWING ARTIFACTOR DILUTION ERROR OF ANTICOAGULANT AT THE TIME OF SAMPLING.Performed By: #### 70055, 15121 ####[facility] [facility] [address], [facility] CENTERTRIGLYCERIDES BLOODon 70-83-9605Lezrivmiclat [Mass/Vol]95 mg/dL Gxhyij97-899Ygz [facility]burgComment on above:Order Comment: No: Do not add to previous drawResult Comment: TRIGLYCERIDE REFERENCE RANGE:20 YEARS AND OLDER CARDIOVASCULAR RISKLESS THAN 150 mg/dl LOW YNLH590 TO 199 mg/dl BORDERLINE HBFZ856 mg/dl AND GREATER HIGH RISKPerformed By: #### 88595, 54373 ####[facility] [facility] [address], [facility] HEALTH CENTERTriglyceride [Mass/Vol]98 mg/bLEqxwif98-649Pzu [facility]burgComment on above:Order Comment: No: Do not add to previous draw Result Comment: TRIGLYCERIDE REFERENCE RANGE:20 YEARS AND OLDER CARDIOVASCULAR RISKLESS THAN 150 mg/dl LOW IIXR410 TO 199 mg/dl BORDERLINE TOCH345 mg/dl AND GREATER HIGH RISKPerformed By: #### 42150, 36716 ####[facility] [facility].[address]*BLOOD CULTUREon 05-15-2021*BLOOD CULTUREClinical Report: (D) Specimen: BLOOD CULTURE Collected: 05/15/2021 11:35 Status: Final Last Updated: 05/20/2021 14:11 (1) Prior to antibiotic administration CULT RES (Final) No Growth Day 5NoUC Medical CenterComment on above: Order Comment: Prior to antibiotic administrationPerformed By: #### 41920 ####[place] [address] [facility].[address] APTTon 72-17-9040fZGQ Coag (Bld) [Time]30.4 kIlduuz83.0-35.0The [facility] MiamisburgComment on above:Result Comment: ALL RESULTS MUST BE INTERPRETED WITH RESPECT TO BLOOD DRAWING ARTIFACTOR DILUTION ERROR OF ANTICOAGULANT AT THE TIME OF SAMPLING.THE APTT SHOULD NOT BE USED TO MONITOR UNFRACTIONATED HEPARIN THERAPY, THIS LABORATORY NO LONGER HAS AN ESTABLISHED THERAPEUTIC RANGE BASEDON THE APTT. IT IS RECOMMENDED THAT THE UFH - HEPARIN ASSAY (ANTI-XAACTIVITY) BE USED FOR THIS PURPOSE.Performed By: #### 58729, 85182 ####[place] [address] [facility] [address], [facility] ARTERIAL BLOOD GAS W/COOXon 55-89-8962VGNL EXCESS2 mmol/GBclumv-8-6Jnh [facility]burgComment on above:Order Comment: RESULTS CHECKED AND CALLED. ACCURATELY READ BACK BY RADHIKA ED CHARGE.Performed By: #### 35179 ####[place] [address] [facility] [address], [facility] CENTERCOHB2.3 %High0.0-1.5The [facility]burgCombronson battle [facility] hospital on above:Order Comment: RESULTS CHECKED AND CALLED. ACCURATELY READ BACK BY RADHIKA ED CHARGE.Performed By: #### 97770 ####[place] [address] [facility] [address], USADELIVERY Good Samaritan HospitalCombronson [facility] hospital on above:Order Comment: RESULTS CHECKED AND CALLED. ACCURATELY READ BACK BY RADHIKA ED CHARGE.Performed By: #### 54244 ####[facility] [place] [address], [facility] HEALTH CENTERHCO3 (Bld) [Moles/Vol]29 mmol/CTwsn60-26Ckl [facility]burgCombronson [facility] on above:Order Comment: RESULTS CHECKED AND CALLED. ACCURATELY READ BACK BY RADHIKA ED CHARGE.Performed By: #### 82744 ####[facility] [facility] [place] [address], USALPM5.0 LPMNormalThe [facility]burgCombronson [facility] hospital on above:Order Comment: RESULTS CHECKED AND CALLED. ACCURATELY READ BACK BY RADHIKA ED CHARGE.Performed By: #### 36845 ####[address] [place] [address], USAMETHB1.1 %Normal 0.0-1.5The [facility]burgCombronson [facility] hospital on above:Order Comment: RESULTS CHECKED AND CALLED. ACCURATELY READ BACK BY RADHIKA ED CHARGE.Performed By: #### 34025 ####[place] [address] [facility] [address], [facility]ENTERMODTriHealth Bethes[facility] North HospitalCombronson [facility] on above:Order Comment: RESULTS CHECKED AND CALLED. ACCURATELY READ BACK BY RADHIKA ED CHARGE.Performed By: #### 22139 ####[address] [place] [address], [facility] HEALTH CENTEROxygen (Bld) [Partial pressure]83 mm[Hg] Kjuuqz39-418Vuw [facility]burgCombr[facility] on above:Order Comment: RESULTS CHECKED AND CALLED. ACCURATELY READ BACK BY RADHIKA ED CHARGE. Performed By: #### 68542 ####[address] [place] [address], [facility] HEALTH CENTEROxygen saturation in Blood94.8 %Pgdqyc55.0-97.0The [facility]burgCombronson [facility] hospital on above:Order Comment: RESULTS CHECKED AND CALLED. ACCURATELY READ BACK BY RADHIKA ED CHARGE.Performed By: #### 44905 ####[facility] [place] [address], KCMGQA721 mmHgCritically muos30-53Bqa [facility] Comment on above:Order Comment: RESULTS CHECKED AND CALLED. ACCURATELY READ BACK BY RADHIKA ED CHARGE.Performed By: #### 40766 ####[facility] [place] [address], USApH (Bld)7.31 [pH]Low7.35-7.45The [facility] MiamisburgComment on above:Order Comment: RESULTS CHECKED AND CALLED. ACCURATELY READ BACK BY RADHIKA ED CHARGE.Performed By: #### 92425 ####[facility] [place] [address], JZWBHQ57.2 g/dLLow12.0-16.3The [facility] MiamisburgComment on above:Order Comment: RESULTS CHECKED AND CALLED. ACCURATELY READ BACK BY RADHIKA ED CHARGE.Performed By: #### 07197 ####[facility] [place] [address], [facility] CENTERBNP (B-TYPE NATRIURETIC PEPTIDE)on 79-74-0636Nkwguxtgfvq peptide B (Bld) [Mass/Vol]136 pg/mLHigh0-100The [facility] MiamisburgComment on above:Order Comment: Yes: Add to Previous draw if ableResult Comment: Given the appropriate clinical setting a BNP result of >100 pg/mLindicates congestive heart failure.Performed By: #### 82326 ####[facility] [place] [address], [facility] CENTERCBC W/DIFFon 99-82-0645IET IMM GRANS0.0 10*3/uLNormal0.0-0.2The [facility] MiamisburgComment on above:Performed By: #### 10506 ####[facility] [place] [address], [place] ABS NEUTROPHILS5.0 10*3/uLNormal1.6-7.6The [facility] Comment on above:Performed By: #### 76844 ####[facility] [facility] [place] [address], [facility] CENTERBasophils (Bld) [#/Vol]0.0 10*3/uL Normal0.0-0.2The [facility] MiamisburgComment on above:Performed By: #### 56169 ####[facility] [facility] [place] [address], [facility] CENTERBasophils/100 WBC (Bld)0.6 %Normal0.0-1.0The [facility] MiamisburgComment on above:Performed By: #### 46934 ####[facility] [facility] [address], [facility] CENTEREosinophils (Bld) [#/Vol] 0.1 10*3/uLNormal0.0-0.5The [facility] MiamisburgComment on above: Performed By: #### 17596 ####[facility] [facility] [address], [facility] CENTEREosinophils/100 WBC (Bld)0.7 %Normal0.0-6.0The [facility] MiamisburgComment on above:Performed By: #### 85215 ####[facility] [facility] [address], [place] Erythrocyte distribution width (RBC) [Ratio]14.5 %Rcealf28.5-15.0The [facility] MiamisburgComment on above:Performed By: #### 40234 ####[place] [address] [facility] [address], [facility] HEALTH CENTERHematocrit (Bld) [Volume fraction]32.5 %Low39.0-50.0The [facility] Comment on above:Performed By: #### 96841 ####[address] [place] [address], [facility] HE[facility] CENTERHemoglobin (Bld) [Mass/Vol]10.3 g/dLLow13.0-17.0The [facility] MiamisburgComment on above: Performed By: #### 90182 ####[address] [place] [address], [facility] HE[facility] CENTERIMMATURE GRANS0.6 %Normal0.0-1.0The [facility] MiamisburgComment on above:Performed By: #### [address]00 ####[place] [address], [facility] HEALTH CENTERLymphocytes (Bld) [#/Vol]1.1 10*3/uLLow1.2-4.0The [facility] MiamisburgComment on above:Performed By: #### [id number] ####[place] [address], [facility] HE[facility] CENTERLymphocytes/100 WBC (Bld)15.9 %Low20.0-45.0 The [facility]burgComment on above:Performed By: #### [id number] ####[address] [place] [address], [facility] MCH (RBC) [Entitic mass]28.8 nrZozmht77.0-33.0The [facility]burgComment on above:Performed By: #### [id number] ####[address] [place] [address], [facility] CENTERMCHC (RBC) [Mass/Vol]31.7 g/dLLow 32.0-35.0The [facility]burgComment on above:Performed By: #### [id number] ####[place] [address], [facility] CENTERMCV (RBC) [Entitic vol]90.8 vZNtabpb62.0-98.0The [facility]burgComment on above:Performed By: #### [id number] ####[facility] [place] [address], USAMonocytes (Bld) [#/Vol]0.8 10*3/uLNormal0.1-1.0The [facility]burgComment on above: Performed By: #### [id number] ####[facility] [place] [address], QQFJTTFR07.2 %Normal5.0-12.0The [facility] MiamisburgComment on above:Performed By: #### [id number] ####[facility] [facility] [address], [facility] CENTERNeutrophils/100 WBC (Bld) 71.0 %Zcqgwq04.0-72.0The [facility]burgComment on above: Performed By: #### [id number] ####[facility] [place] [address], USANucleated RBC/100 WBC (Bld) [Ratio]0 %Normal0-0The [facility] MiamisburgComment on above:Performed By: #### [id number] ####[facility] [facility] [place] [address], [place] PLAT [id number] 10*3/nLKkgdpo196-157Orj [facility]amisburgComment on above:Performed By: #### 19527 ####[facility] [facility] [address], USARBC (Bld) [#/Vol]3.58 10*6/uLLow4.20-5.70The [facility] MiamisburgComment on above:Performed By: #### 22103 ####[facility] [facility] [address], [place] WBC (Bld) [#/Vol]7.03 10*3/uLNormal4.00-10.60The [facility] MiamisburgComment on above:Performed By: #### 36192 ####[facility] [place] [address], USACOMP METABOLIC PANELon 05-15-2021 Albumin [Mass/Vol]3.2 g/dLLow3.5-5.7The [facility] Comment on above:Performed By: #### 65353, 73206, 46010, 67632 ####[facility] [place] [address], USAALKALINE HVSNII25 IU/MMnncsh01-667Crw [facility]amisburgComment on above: Performed By: #### 01487, 06805, 50243, 24933 ####[facility] [place] [address], USAALT [Catalytic activity/Vol]11 U/L Normal7-52The [facility] MiamisburgComment on above:Performed By: #### 95661, 34292, 17489, 98687 ####[facility] [place] [address], USAAST [Catalytic activity/Vol]12 U/UVik63-49Dzw [facility]amisburgComment on above:Performed By: #### 35367, 38478, 98987, 60794 ####[facility] [place] [address], USABilirubin [Mass/Vol]0.9 mg/dLNormal0.3-1.0The [facility] MiamisburgComment on above:Performed By: #### 00496, 37496, 27634, 67651 ####[facility] [place] [address], USACalcium [Mass/Vol]8.3 mg/dLLow8.6-10.3The [facility] MiamisburgComment on above:Performed By: #### 14209, 85158, 28445, 67177 ####[facility] [place] [address], USAChloride [Moles/Vol]101 mmol/RHhjqpd50-409Aou [facility]amisburgComment on above:Performed By: #### 42955, 22457, 10105, 36536 ####[facility] [place] [address], [place] CO2 [Moles/Vol]30 mmol/BKjbefz02-19Xmq [facility] Comment on above:Performed By: #### 55645, 77941, 26763, 07199 ####[facility] [place] [address], USACreatinine [Mass/Vol]0.92 mg/dLNormal0.70-1.30The [facility] Comment on above:Performed By: #### 04789, 22604, 87906, 37660 ####[facility] [place] [address], USAGFR/1.73 sq M.predicted among blacks MDRD (S/P/Bld) [Vol rate/Area]mL/min/{1.73_m2}Normal>60 The [facility] MiamisburgComment on above:Result Comment: Calculation may not be valid for patients over 70 yearsPerformed By: #### 51392, 85414, 69769, 35179 ####[facility] [place] [address], USAGFR/1.73 sq M.predicted among non-blacks MDRD (S/P/Bld) [Vol rate/Area]mL/min/{1.73_m2}Normal>60The [facility] Comment on above:Result Comment: Calculation may not be valid for patients over 70 yearsPerformed By: #### 96289, 57464, 89672, 38868 ####[facility] [place] [address], USAGlucose [Mass/Vol]138 mg/dL Lhqa83-748Gjr [facility]burgComment on above:Performed By: #### 16225, 61409, 41054, 05099 ####[facility] [facility] [place] [address], USAPotassium [Moles/Vol]4.1 mmol/LNormal3.5-5.1 The [facility] MiamisburgComment on above:Performed By: #### 06513, 18744, 92438, 78884 ####[facility] [place] [address], USAProtein [Mass/Vol]7.4 g/dLNormal6.0-8.3The [facility]burgComment on above:Performed By: #### 97014, 81925, 54049, 89779 ####[facility] [facility] [place] [address], USASodium [Moles/Vol]136 mmol/HFsyusq806-499Bmm [facility]burgComment on above:Performed By: #### 72447, 64642, 69162, 86332 ####[facility] [facility] [place] [address], [place] Urea nitrogen [Mass/Vol]8 mg/dLNormal7-25The [facility] Comment on above:Performed By: #### 38055, 90154, 25021, 77107 ####[facility] [facility] [place] [address], USALACTATE BLOODon 76-21-7415Hfqaslm [Moles/Vol]0.7 mmol/LNormal.5-2.2The [facility]burgComment on above:Order Comment: Repeat Lactate in 4 hoursPerformed By: #### 94838 ####[facility] [place] [address], USAMAGNESIUM BLOODon 60-80-8146Rwmqlrygx [Mass/Vol]2.0 mg/dLNormal1.9-2.7The [facility]amisburgComment on above: Performed By: #### 85721, 29448, 88275, 07596 ####[facility] [place] [address], USAPHOSPHORUS BLOODon 05-15-2021 Phosphate [Mass/Vol]6.0 mg/dLHigh2.5-5.0The [facility] Comment on above:Performed By: #### 62585, 30126, 45007, 46875 ####[facility] [facility] [place] [address], USAPOC GLUCOSE LABon 19-24-1933Jhyjycg [Mass/Vol]225 mg/tDCjvx59-632Lfb [facility]amisburgComment on above:Performed By: #### 70302 ####[facility] [place] [address], [facility] CENTERPO SARS COV2 ANTIGEN NEGATIVEon 44-32-4950JGR SARS COV2 ANTIGEN NEGNegativeNormalNEGATIVEThe [facility]amisburgComment on above:Result Comment: Negative results from patients with symptom onset beyond [...] of clinicalsigns and symptoms consistent with COVID-19.The [employer] COVID-19 Ag Card is a lateral flow immunoassay intended forthe qualitative detection of nucleocapsid protein antigen wjdxYRVA-WhC-5 in direct nasal swabs from individuals within [...] of Waiver, Certificate of Compliance, or Certificate ofAccreditation.Performed By: #### 17194 ####[facility] [place] [address], USAPORTABLE CHEST 1 VIEWon 37-02-1780HBUBFZWO CHEST 1 VIEWNormalThe [facility]amisburgComment on above:Order Comment: Evaluate for Infiltrates, hypoxia, infected sternotomy sitePROTHROMBIN TIMEon 82-75-4342CXG Coag (PPP) [Relative time]1.07 {INR}Normal0.91-1.16The [facility] MiamisburgComment on above:Result Comment: ACCCP RECOMMENDED INR FOR WARFARIN THERAPY CONDITION INRPROPHYLAXIS OF VENOUS THROMBOSIS 2-3(HIGH-RISK SURGERY)TREATMENT OF VENOUS THROMBOSIS 2-3TREATMENT OF PULMONARY EMBOLISM 2-3PREVENTION OF SYSTEMIC EMBOLISM: 2-3 ACUTE MYOCARDIAL INFARCTION TISSUE HEART VALVES VALVULAR HEART DISEASE ATRIAL FIBRILLATION RECURRENT SYSTEMIC EMBOLISMMECHANICAL HEART VALVE 2.5-3.5 FROM: ORAL ANTICOAGULANTS. MECHANISM OF ACTION, CLINICALEFFECTIVENESS, AND OPTIMAL THERAPEU TIC RANGE. [id number];108:231S-246S.Performed By: #### 94912, 35791 ####[facility] [place] [address], [place] PT Coag (PPP) [Time]13.9 jMnwdpj38.3-14.8The [facility] Comment on above:Result Comment: ALL RESULTS MUST BE INTERPRETED WITH RESPECT TO BLOOD DRAWING ARTIFACTOR DILUTION ERROR OF ANTICOAGULANT AT THE TIME OF SAMPLING.Performed By: #### 29612, 52311 ####[facility] [place] [address], USATROPONIN-Ion 84-39-3286Rlbchpsf I.cardiac [Mass/Vol]0.01 ng/mLNormal0.00-0.04The [facility]amisburgComment on above:Result Comment: REFERENCE RANGES: 0.00 - 0.04 ng/ml NORMAL 0.05 - 0.50 ng/ml INDETERMINATE > 0.50 ng/ml CONSISTENT WITH AN M.I. Performed By: #### 41171, 01054, 80224, 13278 ####[facility] [place] [address], USATYPE AND SCREENon 72-16-7994CQG INTERPRETATIONONoUC Medical CenterComment on above: Performed By: #### 06079 ####[facility] [place] [address], USARH INTERPRETATIONPositiveMcCullough-Hyde Memorial HospitalComment on above:Performed By: #### 54767 ####[facility] [place] [address], USAPOC GLUCOSE LABon 47-20-6878Vcscfig [Mass/Vol]143 mg/nULigu11-854Smc [facility]burgComment on above:Performed By: #### 35409 ####[facility] [place] [address], USAGlucose [Mass/Vol]241 mg/dLHigh 70-100The [facility]amisburgComment on above:Performed By: #### 90939 ####[facility] [place] [address], USAGlucose [Mass/Vol]121 mg/sKIeze77-098Brh [facility]burgComment on above:Performed By: #### 94362 ####[facility] [place] [address], USAPOC SARS COV2 ANTIGEN NEGATIVEon 66-63-2378FCE SARS COV2 ANTIGEN NEGNegativeNormalNEGATIVEThe [facility] MiamisburgComment on above:Result Comment: Negative results from patients with symptom onset beyond [...] of clinicalsigns and symptoms consistent with COVID-19.The [employer] COVID-19 Ag Card is a lateral flow immunoassay intended forthe qualitative detection of nucleocapsid protein antigen hgqeYSVF-DcO-1 in direct nasal swabs from individuals within [...] of Waiver, Certificate of Compliance, or Certificate ofAccreditation.Performed By: #### 74178 ####[facility] [facility] [address], [facility] HEALTH CENTERBASIC METABOLIC PANELon 55-68-3695Xmorgjp [Mass/Vol]8.7 mg/dL Normal8.6-10.3The [facility]amisburgComment on above:Order Comment: No: Do not add to previous drawPerformed By: #### 58688, 04457 ####[facility] [facility] [address], [facility] Chloride [Moles/Vol]95 mmol/OVlt60-744Ubl [facility] Comment on above:Order Comment: No: Do not add to previous drawPerformed By: #### 81588, 63890 ####[facility] [facility] [address], USACO2 [Moles/Vol]27 mmol/JRrfsek19-73Hrx [facility]burgComment on above:Order Comment: No: Do not add to previous drawPerformed By: #### 45540, 67067 ####[facility] [place] [address], USACreatinine [Mass/Vol]0.80 mg/dLNormal 0.70-1.30The [facility]amisburgComment on above:Order Comment: No: Do not add to previous drawPerformed By: #### 01433, 01833 ####[facility] [place] [address], USAGFR/1.73 sq M.predicted among blacks MDRD (S/P/Bld) [Vol rate/Area]mL/min/{1.73_m2}Normal>60 The [facility] MiamisburgComment on above:Order Comment: No: Do not add to previous drawResult Comment: Calculation may not be valid for patients over 70 yearsPerformed By: #### 46101, 72151 ####[facility] [place] [address], USAGFR/1.73 sq M.predicted among non-blacks MDRD (S/P/Bld) [Vol rate/Area]mL/min/{1.73_m2}Normal>60The [facility] MiamisburgComment on above:Order Comment: No: Do not add to previous drawResult Comment: Calculation may not be valid for patients over 70 yearsPerformed By: #### 86852, 76048 ####[facility] [place] [address], USAGlucose [Mass/Vol]108 mg/dLHigh 70-100The [facility]amisburgComment on above:Order Comment: No: Do not add to previous drawPerformed By: #### 53478, 21489 ####[facility] [place] [address], USAPotassium [Moles/Vol]3.6 mmol/LNormal3.5-5.1The [facility]amisburgComment on above:Order Comment: No: Do not add to previous drawPerformed By: #### 31040, 74636 ####[facility] [place] [address], USASodium [Moles/Vol]132 mmol/FZvd957-899Vwy [facility]burgComment on above:Order Comment: No: Do not add to previous draw Performed By: #### 53774, 37185 ####[facility] [place] [address], USAUrea nitrogen [Mass/Vol]38 mg/dLHigh7-25The [facility]burgComment on above:Order Comment: No: Do not add to previous drawPerformed By: #### 51564, 01907 ####[facility] [place] [address], USACBC COMPLETE BLOOD COUNTon 31-26-7736Kioxygyrqrp distribution width (RBC) [Ratio]14.1 %Vqsejr14.5-15.0The [facility] MiamisburgComment on above:Order Comment: No: Do not add to previous drawPerformed By: #### 84524 ####[facility] [place] [address], USAHematocrit (Bld) [Volume fraction] 33.5 %Low39.0-50.0The [facility] MiamisburgComment on above:Order Comment: No: Do not add to previous drawPerformed By: #### 35384 ####[facility] [place] [address], USAHemoglobin (Bld) [Mass/Vol]11.3 g/dLLow13.0-17.0The [facility]amisburgComment on above:Order Comment: No: Do not add to previous drawPerformed By: #### 24485 ####[facility] [place] [address], [place] MCH (RBC) [Entitic mass]30.2 dbAnlxgt60.0-33.0The [facility]amisburgComment on above:Order Comment: No: Do not add to previous drawPerformed By: #### 32172 ####[facility] [place] [address], [facility] HEALTH CENTERMCHC (RBC) [Mass/Vol]33.7 g/tWJypnlc50.0-35.0The [facility]amisburgComment on above:Order Comment: No: Do not add to previous drawPerformed By: #### 94411 ####[facility] [facility] [address], [facility] HEALTH CENTERMCV (RBC) [Entitic vol]89.6 tUUesvju22.0-98.0 The [facility] MiamisburgComment on above:Order Comment: No: Do not add to previous drawPerformed By: #### 02348 ####[facility] [facility] [address], [facility] HEALTH CENTERNucleated RBC/100 WBC (Bld) [Ratio]0 %Normal0-0The [facility] MiamisburgComment on above:Order Comment: No: Do not add to previous drawPerformed By: #### 29094 ####[facility] [place] [address].[place] [address], [facility] PLAT SNM261 10*3/fIQtvfcy120-024Qav [facility]burgComment on above:Order Comment: No: Do not add to previous drawPerformed By: #### 55995 ####[facility] [facility] [address], [facility] RBC (Bld) [#/Vol]3.74 10*6/uLLow4.20-5.70The [facility] Comment on above:Order Comment: No: Do not add to previous drawPerformed By: #### 82316 ####[facility] [place] [address].[place] [address], [facility] HEALTH CENTERWBC (Bld) [#/Vol]10.84 10*3/uLHigh4.00-10.60The [facility]amisburgComment on above:Order Comment: No: Do not add to previous draw Performed By: #### 27943 ####[facility] [place] [address], USAMAGNESIUM BLOODon 27-29-5214Wzuxknqhg [Mass/Vol]1.9 mg/dLNormal1.9-2.7The [facility]burgComment on above:Order Comment: No: Do not add to previous drawPerformed By: #### 07699, 24492 ####[facility] [place] [address], [place] POC GLUCOSE LABon 01-20-7296Njqsqjl [Mass/Vol]168 mg/rLKxzx81-657Enb [facility]burgComment on above:Performed By: #### 84102 ####[facility] [place] [address], USAGlucose [Mass/Vol]133 mg/fTKurf39-059Abp [facility]burgComment on above:Performed By: #### 60553 ####[facility] [place] [address], USAGlucose [Mass/Vol]167 mg/hIDzor13-657Rde [facility]burgComment on above:Performed By: #### 79776 ####[facility] [place] [address], [place] Glucose [Mass/Vol]146 mg/sSMygg70-489Yao [facility] Comment on above:Performed By: #### 03828 ####[facility] [place] [address], USAGlucose [Mass/Vol]152 mg/dLHigh 70-100The [facility]amisburgComment on above:Performed By: #### 45848 ####[facility] [place] [address], USAPORTABLE CHEST 1 VIEWon 05-45-3405CYXRIEUA CHEST 1 VIEWNormalThe [facility]amisburgComment on above:Order Comment: evaluate AtelectasisBASIC METABOLIC PANELon 23-78-2160Ezkrxlk [Mass/Vol]9.1 mg/dLNormal 8.6-10.3The [facility]amisburgComment on above:Order Comment: No: Do not add to previous drawPerformed By: #### 09984, 32110 ####[facility] [place] [address], USAChloride [Moles/Vol]94 mmol/QNcx05-869Unm [facility]burgComment on above:Order Comment: No: Do not add to previous drawPerformed By: #### 32493, 01445 ####[facility] [place] [address], USACO2 [Moles/Vol]27 mmol/NAqdraz77-49Edb [facility]burgComment on above:Order Comment: No: Do not add to previous drawPerformed By: #### 98246, 83710 ####[facility] [place] [address], USACreatinine [Mass/Vol]0.87 mg/dLNormal0.70-1.30The [facility]amisburgComment on above:Order Comment: No: Do not add to previous drawPerformed By: #### 23726, 67258 ####[facility] [place] [address], USAGFR/1.73 sq M.predicted among blacks MDRD (S/P/Bld) [Vol rate/Area]mL/min/{1.73_m2}Normal>60The [facility] MiamisburgComment on above:Order Comment: No: Do not add to previous drawResult Comment: Calculation may not be valid for patients over 70 yearsPerformed By: #### 13563, 46792 ####[facility] [id number], USAGFR/1.73 sq M.predicted among non- blacks MDRD (S/P/Bld) [Vol rate/Area]mL/min/{1.73_m2}Normal>60The [facility] MiamisburgComment on above:Order Comment: No: Do not add to previous drawResult Comment: Calculation may not be valid for patients over 70 years Performed By: #### 74484, 86251 ####[facility] [place] [address], [facility] HEALTH CENTERGlucose [Mass/Vol]125 mg/mHVudv42-230Amc [facility]burgComment on above:Order Comment: No: Do not add to previous drawPerformed By: #### 12761, 15084 ####[facility] [place] [address], [facility] HE[facility] CENTERPotassium [Moles/Vol]3.2 mmol/LLow3.5-5.1The [facility] MiamisburgComment on above:Order Comment: No: Do not add to previous drawPerformed By: #### 07958, 42784 ####[facility] [facility] [place] [address], [facility] Sodium [Moles/Vol]132 mmol/JYwg322-063Rzi [facility] Comment on above:Order Comment: No: Do not add to previous drawPerformed By: #### 63741, 82635 ####[facility] [place] [address], USAUrea nitrogen [Mass/Vol]27 mg/dLHigh7-25The [facility]amisburgComment on above:Order Comment: No: Do not add to previous drawPerformed By: #### 65315, 13065 ####[facility] [facility] [place] [address], USACBC COMPLETE BLOOD COUNTon 13-43-3000Bwpxlwmverv distribution width (RBC) [Ratio]14.2 %Nhidxh94.5-15.0The [facility] MiamisburgComment on above:Order Comment: No: Do not add to previous drawPerformed By: #### 48121 ####[facility] [facility] [place] [address], [facility] HEALTH CENTERHematocrit (Bld) [Volume fraction] 35.2 %Low39.0-50.0The [facility] MiamisburgComment on above:Order Comment: No: Do not add to previous drawPerformed By: #### 49347 ####[facility] [facility] [address], [facility] HEALTH CENTERHemoglobin (Bld) [Mass/Vol]11.9 g/dLLow13.0-17.0The [facility] MiamisburgComment on above:Order Comment: No: Do not add to previous drawPerformed By: #### 23106 ####[facility] [place] [address].[place] [address], [facility] MCH (RBC) [Entitic mass]30.6 nrXksbri50.0-33.0The [facility]amisburgComment on above:Order Comment: No: Do not add to previous drawPerformed By: #### 12753 ####[facility] [facility] [address], [facility] HEALTH CENTERMCHC (RBC) [Mass/Vol]33.8 g/rTTdvvzt94.0-35.0The [facility] MiamisburgComment on above:Order Comment: No: Do not add to previous drawPerformed By: #### 81311 ####[facility] [facility] [address], [facility]ALTH CENTERMCV (RBC) [Entitic vol]90.5 aUMyxxcv57.0-98.0 The [facility] MiamisburgComment on above:Order Comment: No: Do not add to previous drawPerformed By: #### 16813 ####[facility] [place] [address].[place] [address], USANucleated RBC/100 WBC (Bld) [Ratio]0 %Normal0-0The [facility] MiamisburgComment on above:Order Comment: No: Do not add to previous drawPerformed By: #### 00089 ####[facility] [place] [address], [facility] PLAT HZJ816 10*3/fFVkrecp113-419Eek [facility]burgComment on above:Order Comment: No: Do not add to previous drawPerformed By: #### 61115 ####[facility] [facility] [place] [address], [facility] RBC (Bld) [#/Vol]3.89 10*6/uLLow4.20-5.70The [facility] Comment on above:Order Comment: No: Do not add to previous drawPerformed By: #### 17147 ####[facility] [facility] [address], [facility]ENTERWBC (Bld) [#/Vol]9.92 10*3/uLNormal4.00-10.60The [facility]burgComment on above:Order Comment: No: Do not add to previous draw Performed By: #### [id number] ####[facility] [facility] [place] [address], [facility] CENTERMAGNESIUM BLOODon [id number] [Mass/Vol]1.9 mg/dLNormal1.9-2.7The [facility]burgComment on above:Order Comment: No: Do not add to previous drawPerformed By: #### [id number] ####[facility] [place] [address], [facility] POC GLUCOSE LABon 02-26-9327Tzhammt [Mass/Vol]106 mg/pHNvqm28-970Zvj [facility]burgComment on above:Performed By: #### [id number] ####[facility] [facility] [place] [address], [place]AGlucose [Mass/Vol]185 mg/jCUfhm94-791Vdh [facility]burgComment on above:Performed By: #### [id number] ####[facility] [place] [address], [place]AGlucose [Mass/Vol]136 mg/bMHvia16-746Qoq [facility]burgComment on above:Performed By: #### [id number] ####[facility] [place] [address], [place] PORTABLE CHEST 1 VIEWon [id number] CHEST 1 VIEWNormalThe [facility]burgComment on above:Order Comment: evaluate for Atelectasis BASIC METABOLIC PANELon 06-34-1751Eqfbwks [Mass/Vol]8.3 mg/dLLow8.6-10.3The [facility]amisburgComment on above:Order Comment: No: Do not add to previous drawPerformed By: #### 81125, 83824 ####[facility] [place] [address], USAChloride [Moles/Vol]102 mmol/JFawuqb80-920Tsh [facility]amisburgComment on above:Order Comment: No: Do not add to previous drawPerformed By: #### 79703, 01794 ####[facility] [place] [address], [place] CO2 [Moles/Vol]25 mmol/UOtvpxa24-21Htl [facility] Comment on above:Order Comment: No: Do not add to previous drawPerformed By: #### 06148, 82824 ####[facility] [place] [address], USACreatinine [Mass/Vol]0.67 mg/dLLow0.70-1.30The [facility] MiamisburgComment on above:Order Comment: No: Do not add to previous drawPerformed By: #### 44380, 30394 ####[facility] [place] [address], USAGFR/1.73 sq M.predicted among blacks MDRD (S/P/Bld) [Vol rate/Area]mL/min/{1.73_m2}Normal>60The [facility]amisburgComment on above:Order Comment: No: Do not add to previous drawResult Comment: Calculation may not be valid for patients over 70 yearsPerformed By: #### 57569, 84659 ####[facility] [place] [address], USAGFR/1.73 sq M.predicted among non- blacks MDRD (S/P/Bld) [Vol rate/Area]mL/min/{1.73_m2}Normal>60The [facility]amisburgComment on above:Order Comment: No: Do not add to previous drawResult Comment: Calculation may not be valid for patients over 70 years Performed By: #### 43442, 52923 ####[place] [address] [facility] [place] [address], [facility] CENTERGlucose [Mass/Vol]116 mg/nYSqod92-587Ggq [facility]burgComment on above:Order Comment: No: Do not add to previous drawPerformed By: #### 47319, 17222 ####[facility] [place] [address], [facility] CENTERPotassium [Moles/Vol]4.0 mmol/LNormal3.5-5.1The [facility]amisburgComment on above:Order Comment: No: Do not add to previous drawPerformed By: #### 00882, 82118 ####[facility] [place] [address], [place] Sodium [Moles/Vol]134 mmol/KDhf183-271Haw [facility] Comment on above:Order Comment: No: Do not add to previous drawPerformed By: #### 39363, 88063 ####[facility] [place] [address], USAUrea nitrogen [Mass/Vol]22 mg/dLNormal7-25The [facility]amisburgComment on above:Order Comment: No: Do not add to previous drawPerformed By: #### 75007, 22884 ####[facility] [facility].[place] [id number], [facility] HEALTH CENTERCBC COMPLETE BLOOD COUNTon 62-47-1227Fovcsxzyyri distribution width (RBC) [Ratio]14.6 %Yvsqhm61.5-15.0The [facility]amisburgComment on above:Order Comment: No: Do not add to previous drawPerformed By: #### 27818 ####[facility] [facility] [address], [facility] HE[facility] CENTERHematocrit (Bld) [Volume fraction] 33.1 %Low39.0-50.0The [facility]amisburgComment on above:Order Comment: No: Do not add to previous drawPerformed By: #### 20857 ####[facility] [facility] [address], [facility] CENTERHemoglobin (Bld) [Mass/Vol]10.6 g/dLLow13.0-17.0The [facility]amisburgComment on above:Order Comment: No: Do not add to previous drawPerformed By: #### 72370 ####[facility] [facility] [address], [facility] MCH (RBC) [Entitic mass]30.0 xyRbakia21.0-33.0The [facility]amisburgComment on above:Order Comment: No: Do not add to previous drawPerformed By: #### 16124 ####[facility] [facility] [address], [facility] CENTERMCHC (RBC) [Mass/Vol]32.0 g/gSWgevtv95.0-35.0The [facility]burgComment on above:Order Comment: No: Do not add to previous drawPerformed By: #### 31951 ####[facility] [place] [address], [facility] CENTERMCV (RBC) [Entitic vol]93.8 qOSrkddi63.0-98.0 The [facility]amisburgComment on above:Order Comment: No: Do not add to previous drawPerformed By: #### 67469 ####[facility] [place] [address], [facility] CENTERNucleated RBC/100 WBC (Bld) [Ratio]0 %Normal0-0The [facility]burgComment on above:Order Comment: No: Do not add to previous drawPerformed By: #### 53121 ####[facility] [place] [address], [facility] PLAT JER800 10*3/yCLmhjxj952-021Vxj [facility]burgComment on above:Order Comment: No: Do not add to previous drawPerformed By: #### 93198 ####[facility] [facility] [address], [facility] RBC (Bld) [#/Vol]3.53 10*6/uLLow4.20-5.70The [facility] Comment on above:Order Comment: No: Do not add to previous drawPerformed By: #### 21462 ####[facility] [facility] [address], [facility] CENTERWBC (Bld) [#/Vol]7.64 10*3/uLNormal4.00-10.60The [facility]burgComment on above:Order Comment: No: Do not add to previous draw Performed By: #### 62282 ####[facility] [facility] [address], [facility] CENTERMAGNESIUM BLOODon 72-96-0584Zspqecvbm [Mass/Vol]1.9 mg/dLNormal1.9-2.7The [facility]burgComment on above:Order Comment: No: Do not add to previous drawPerformed By: #### 40059, 98815 ####[facility] [place] [address].[address] POC GLUCOSE LABon 94-79-5111Jszhsgj [Mass/Vol]126 mg/kRAicc82-364Fgc [facility]burgComment on above:Performed By: #### 80687 ####[address] [place] [address], [facility] CENTERGlucose [Mass/Vol]131 mg/kOPnob56-577Wpl [facility]burgComment on above:Performed By: #### 19480 ####[place] [address] [facility] [address], [facility] CENTERGlucose [Mass/Vol]167 mg/vHXmli96-825Uki [facility]burgComment on above:Performed By: #### 13831 ####[address] POC SARS COV2 ANTIGEN NEGATIVEon 52-65-8496JAV SARS COV2 ANTIGEN NEGNegative NormalNEGATIVEThe [facility] MiamisburgComment on above:Result Comment: Negative results from patients with symptom onset beyond [...] presence of clinicalsigns and symptoms consistent with COVID- 19.The Operation Supply Drop COVID-19 Ag Card is a lateral flow immunoassay intended forthe qualitative detection of nucleocapsid protein antigen gkyxEZCR-TrJ-9 in direct nasal swabs from individuals within [...] of Waiver, Certificate of Compliance, or Certificate ofAccreditation.Performed By: #### [id number] ####[facility] [facility] [address], USAPOC SARS COV2 ANTIGEN NEG NegativeNormalNEGATIVEThe [facility]amisburgComment on above: Result Comment: Negative results from patients with symptom onset beyond [...] presence of clinicalsigns and symptoms consistent with COVID- 19.The [employer] Supply Drop COVID-19 Ag Card is a lateral flow immunoassay intended forthe qualitative detection of nucleocapsid protein antigen gydiYFLI-DfD-0 in direct nasal swabs from individuals within [...] of Waiver, Certificate of Compliance, or Certificate ofAccreditation.Performed By: #### [id number] ####[facility] [facility] [place] [address], USAPORTABLE CHEST 1 VIEWon 65-64-6709PQOOYBCR CHEST 1 VIEWNormalThe [facility] Comment on above:Order Comment: evaluate for AtelectasisBASIC METABOLIC PANELon 14-45-7664Susbazj [Mass/Vol]7.9 mg/dLLow8.6-10.3The [facility]burgComment on above:Order Comment: No: Do not add to previous drawPerformed By: #### 92442, 61401, 36623 ####[facility] [place] [address], USAChloride [Moles/Vol]100 mmol/AEdtzuh65-244Vmx [facility]burgComment on above:Order Comment: No: Do not add to previous drawPerformed By: #### 12045, 06731, 39073 ####[facility] [place] [address], USACO2 [Moles/Vol]27 mmol/ITdtbdm51-06Djp [facility]burgComment on above:Order Comment: No: Do not add to previous drawPerformed By: #### 66459, 59554, 49740 ####[facility] [place] [address], [place] Creatinine [Mass/Vol]0.80 mg/dLNormal0.70-1.30The [facility]burgComment on above:Order Comment: No: Do not add to previous drawPerformed By: #### 01564, 82522, 45847 ####[facility] [place] [address], USAGFR/1.73 sq M.predicted among blacks MDRD (S/P/Bld) [Vol rate/Area]mL/min/{1.73_m2}Normal>60The [facility]amisburgComment on above:Order Comment: No: Do not add to previous draw Result Comment: Calculation may not be valid for patients over 70 yearsPerformed By: #### 29127, 69859, 87543 ####[facility] [place] [address], USAGFR/1.73 sq M.predicted among non-blacks MDRD (S/P/Bld) [Vol rate/Area]mL/min/{1.73_m2}Normal>60The [facility]burgComment on above:Order Comment: No: Do not add to previous draw Result Comment: Calculation may not be valid for patients over 70 yearsPerformed By: #### 40050, 77510, 89695 ####[facility] [place] [address], USAGlucose [Mass/Vol]135 mg/bXJzyd99-021Ixo [facility]burgComment on above:Order Comment: No: Do not add to previous drawPerformed By: #### 21731, 01842, 98093 ####[facility] [place] [address], USAPotassium [Moles/Vol]3.4 mmol/LLow3.5-5.1The [facility]burgComment on above:Order Comment: No: Do not add to previous drawPerformed By: #### 80655, 22713, 46195 ####[facility] [place] [address], USASodium [Moles/Vol]134 mmol/SFof428-693Nrx [facility]burgComment on above:Order Comment: No: Do not add to previous draw Performed By: #### 99348, 47100, 82178 ####[facility] [place] [address], USAUrea nitrogen [Mass/Vol]21 mg/dL Normal7-25The [facility]burgComment on above:Order Comment: No: Do not add to previous drawPerformed By: #### 70102, 86786, 92657 ####[facility] [facility] [address], [facility] CBC COMPLETE BLOOD COUNTon 66-46-4385Hlzqujnstjy distribution width (RBC) [Ratio]15.0 %Ulzvws92.5-15.0The [facility]amisburgComment on above:Order Comment: No: Do not add to previous drawNurse drawPerformed By: #### 11394 ####[facility] [facility] [place] [address], [facility] CENTERHematocrit (Bld) [Volume fraction]32.0 %Low39.0-50.0The [facility]amisburgComment on above:Order Comment: No: Do not add to previous drawNurse drawPerformed By: #### 05110 ####[facility] [facility] [address], [facility] CENTERHemoglobin (Bld) [Mass/Vol]10.6 g/dLLow13.0-17.0The [facility]burgComment on above:Order Comment: No: Do not add to previous drawNurse drawPerformed By: #### 55876 ####[facility] [facility] [address], [facility] MCH (RBC) [Entitic mass]30.5 vaPuibdu83.0-33.0The [facility]burgComment on above:Order Comment: No: Do not add to previous drawNurse draw Performed By: #### 18007 ####[facility] [facility] [place] [address], [facility] CENTERMCHC (RBC) [Mass/Vol]33.1 g/rBGjtfqd63.0-35.0The [facility]amisburgComment on above:Order Comment: No: Do not add to previous drawNurse drawPerformed By: #### 61905 ####[facility] [place] [address].[place] [address], [facility] CENTERMCV (RBC) [Entitic vol] 92.2 sYOalagk95.0-98.0The [facility]amisburgComment on above: Order Comment: No: Do not add to previous drawNurse drawPerformed By: #### 75770 ####[facility] [facility] [place] [address], [facility] Nucleated RBC/100 WBC (Bld) [Ratio]0 %Normal0-0The [facility]amisburgComment on above:Order Comment: No: Do not add to previous drawNurse draw Performed By: #### 41128 ####[facility] [place] [address].[place] [address], USAPLAT LXS324 10*3/tHHhmuje809-086Yxc [facility]burgComment on above:Order Comment: No: Do not add to previous drawNurse drawPerformed By: #### 34507 ####[facility] [place] [address], USARBC (Bld) [#/Vol]3.47 10*6/uLLow 4.20-5.70The [facility]burgComment on above:Order Comment: No: Do not add to previous drawNurse drawPerformed By: #### 43211 ####[facility] [place] [address], [facility] CENTERWBC (Bld) [#/Vol]9.87 10*3/uLNormal4.00-10.60The [facility] Comment on above:Order Comment: No: Do not add to previous drawNurse draw Performed By: #### 82128 ####[facility] [place] [address], USAMAGNESIUM BLOODon 31-24-9266Fkxdxbfpz [Mass/Vol]2.1 mg/dLNormal1.9-2.7The [facility]burgComment on above:Order Comment: No: Do not add to previous drawPerformed By: #### 10577, 48217, 94096 ####[facility] [place] [address], [place] PHOSPHORUS BLOODon 89-75-9920Cangzfxco [Mass/Vol]3.7 mg/dLNormal2.5-5.0The [facility]burgComment on above:Order Comment: No: Do not add to previous drawPerformed By: #### 64503, 00421, 40511 ####[facility] [place] [address], [place]APOC GLUCOSE LABon 20-76-4049Regrzpp [Mass/Vol]137 mg/rKZidx32-719Ulg [facility]burgComment on above:Performed By: #### 79460 ####[facility] [place] [address], USAGlucose [Mass/Vol]182 mg/dLHigh 70-100The [facility]amisburgComment on above:Performed By: #### 47382 ####[facility] [address], USAGlucose [Mass/Vol]171 mg/lXRmex96-416Dfk [facility]burgComment on above:Performed By: #### 96830 ####[facility] [place] [address], USAGlucose [Mass/Vol]142 mg/dLHigh 70-100The [facility]amisburgComment on above:Performed By: #### 60699 ####[facility] [place] [address], USAPORTABLE CHEST 1 VIEWon 94-05-1254QBPSTOPF CHEST 1 [facility] CenterComment on above:Order Comment: Evaluate for PneumothoraxPORTABLE CHEST 1 [facility] Comment on above:Order Comment: evaluate for PneumothoraxBASIC METABOLIC PANELon 21-52-3393Zpvmhkl [Mass/Vol]8.2 mg/dLLow8.6-10.3The [facility]burgComment on above:Order Comment: No: Do not add to previous drawNurse draw rn samPerformed By: #### 47806, 19148, 90600 ####[facility] [place] [address], USAChloride [Moles/Vol]104 mmol/BQfwmhv61-391Mss [facility]burgComment on above:Order Comment: No: Do not add to previous drawNurse draw rn barbara Performed By: #### 91854, 02618, 45556 ####[facility] [place] [address], USACO2 [Moles/Vol]27 mmol/LNormal 21-31The [facility]burgComment on above:Order Comment: No: Do not add to previous drawNurse draw rn samPerformed By: #### 26270, 68405, 97757 ####[facility] [place] [address], USACreatinine [Mass/Vol]0.76 mg/dLNormal0.70-1.30The [facility]burgComment on above:Order Comment: No: Do not add to previous drawNurse draw rn samPerformed By: #### 97681, 03654, 20152 ####[facility] [place] [address], USAGFR/1.73 sq M.predicted among blacks MDRD (S/P/Bld) [Vol rate/Area]mL/min/{1.73_m2}Normal>60 The [facility]amisburgComment on above:Order Comment: No: Do not add to previous drawNurse draw rn barbaraResult Comment: Calculation may not be valid for patients over 70 yearsPerformed By: #### 68551, 63118, 10881 ####[facility] [place] [address], [place] GFR/1.73 sq M.predicted among non-blacks MDRD (S/P/Bld) [Vol rate/Area] mL/min/{1.73_m2}Normal>60The [facility]amisburgComment on above:Order Comment: No: Do not add to previous drawNurse draw rn barbaraResholly Comment: Calculation may not be valid for patients over 70 yearsPerformed By: #### 81658, 05845, 84278 ####[facility] [place] [address], USAGlucose [Mass/Vol]109 mg/iGJwmj96-648Rzb [facility]burgComment on above:Order Comment: No: Do not add to previous drawNurse draw rn samPerformed By: #### 29092, 72122, 04615 ####[facility] [place] [address], USAPotassium [Moles/Vol]4.0 mmol/LNormal3.5-5.1The [facility]burgComment on above:Order Comment: No: Do not add to previous drawNurse draw rn barbara Performed By: #### 00338, 50422, 42927 ####[facility] [place] [address], USASodium [Moles/Vol]135 mmol/LLow 136-145The [facility]burgComment on above:Order Comment: No: Do not add to previous drawNurse draw rn samPerformed By: #### 39473, 55844, 73414 ####[facility] [place] [address], USAUrea nitrogen [Mass/Vol]15 mg/dLNormal7-25The [facility]burgComment on above:Order Comment: No: Do not add to previous drawNurse draw rn samPerformed By: #### 13027, 15334, 67300 ####[facility] [place] [address], [facility] CENTERCBC COMPLETE BLOOD COUNTon 10-70-0991Zunaalbyrgg distribution width (RBC) [Ratio]14.7 %Normal 11.5-15.0The [facility]amisburgComment on above:Order Comment: No: Do not add to previous drawNurse draw rn samPerformed By: #### 16539 ####[facility] [place] [address], [place] Hematocrit (Bld) [Volume fraction]32.7 %Low39.0-50.0The [facility]amisburgComment on above:Order Comment: No: Do not add to previous drawNurse draw rn samPerformed By: #### 33801 ####[facility] [place] [address], [facility] CENTERHemoglobin (Bld) [Mass/Vol]10.7 g/dLLow13.0-17.0The [facility]burgComment on above:Order Comment: No: Do not add to previous drawNurse draw rn samPerformed By: #### 75319 ####[facility] [facility] [address], [facility] (RBC) [Entitic mass]30.1 egYrsscg91.0-33.0The [facility]burgComment on above:Order Comment: No: Do not add to previous drawNurse draw rn samPerformed By: #### 39469 ####[facility] [facility] [address], [facility]HC (RBC) [Mass/Vol]32.7 g/dL Ebddrz03.0-35.0The [facility]burgComment on above:Order Comment: No: Do not add to previous drawNurse draw rn samPerformed By: #### 56553 ####[facility] [facility] [address], [facility] (RBC) [Entitic vol]92.1 lHToqytp45.0-98.0The [facility]burgComment on above:Order Comment: No: Do not add to previous drawNurse draw rn samPerformed By: #### 52514 ####[facility] [facility] [address], [facility] CENTERNucleated RBC/100 WBC (Bld) [Ratio]0 %Normal0-0The [facility]burgComment on above:Order Comment: No: Do not add to previous drawNurse draw rn samPerformed By: #### 99014 ####[facility] [facility] [address], [facility]ALTH CENTERPLAT WQL418 10*3/cBZjwnba917-371Cce [facility]burgComment on above:Order Comment: No: Do not add to previous drawNurse draw rn samPerformed By: #### 92150 ####[facility] [address].[place] [address], [facility] CENTERRBC (Bld) [#/Vol]3.55 10*6/uLLow4.20-5.70The [facility]burgComment on above:Order Comment: No: Do not add to previous drawNurse draw rn samPerformed By: #### 70627 ####[facility] [place] [address], [facility] CENTERWBC (Bld) [#/Vol] 12.43 10*3/uLHigh4.00-10.60The [facility]burgComment on above:Order Comment: No: Do not add to previous drawNurse draw rn samPerformed By: #### 23135 ####[facility] [place] [address], [facility] CENTERCOOXIMETRYon 36-61-4657KAVA9 %NormalThe [facility]amisburgComment on above:Performed By: #### 01033 ####[facility] [facility] [place] [address], [facility] CENTERMETHB0 %NormalThe [facility] MiamisburgComment on above:Performed By: #### 27335 ####[place] [address] [place] [address], [facility] Oxygen saturation in Blood68.2 %Gusoew27.0-75.0The [facility]amisburgComment on above:Performed By: #### 07124 ####[facility] [place] [address], UODGOL02.1 g/dLNormalThe [facility] MiamisburgComment on above:Performed By: #### [id number] ####[facility] [facility] [address], [facility] CENTERLACTATE BLOODon [id number] [Moles/Vol]0.7 mmol/LNormal.5-2.2The [facility] MiamisburgComment on above:Order Comment: No: Do not add to previous drawNurse draw rn samPerformed By: #### [id number] ####[facility] [place] [address], USAMAGNESIUM BLOODon 04-10-2021 Magnesium [Mass/Vol]2.3 mg/dLNormal1.9-2.7The [facility] MiamisburgComment on above:Order Comment: No: Do not add to previous drawNurse draw rn samPerformed By: #### [id number], [id number], [id number] ####[facility] [place] [address], USAPHOSPHORUS BLOODon 04-10-2021 Phosphate [Mass/Vol]3.9 mg/dLNormal2.5-5.0The [facility]burgComment on above:Order Comment: No: Do not add to previous drawNurse draw rn samPerformed By: #### [id number], [id number], [id number] ####[facility] [place] [address], [place]APOC GLUCOSE LABon 04-10-2021 Glucose [Mass/Vol]168 mg/uHMcxj31-993Wvb [facility] Comment on above:Performed By: #### [id number] ####[facility] [place] [address], USAGlucose [Mass/Vol]131 mg/dLHigh 70-100The [facility]burgComment on above:Performed By: #### 56234 ####[facility] [place] [address], USAGlucose [Mass/Vol]123 mg/uSRqov75-419Hxo [facility]Comment on above:Performed By: #### 92102 ####[facility] [place] [address], USAGlucose [Mass/Vol]170 mg/dLHigh 70-100The [facility]burgComment on above:Performed By: #### 63947 ####[facility] [place] [address], USAGlucose [Mass/Vol]131 mg/vQPmsb51-114Fqt [facility]Comment on above:Performed By: #### 85042 ####[facility] [place] [address], USAGlucose [Mass/Vol]123 mg/dLHigh 70-100The [facility]Comment on above:Performed By: #### 29335 ####[facility] [place] [address], USAGlucose [Mass/Vol]92 mg/iLIggqrk48-364Mjd [facility]burgComment on above:Performed By: #### 91939 ####[facility] [place] [address], USAGlucose [Mass/Vol]99 mg/dL Kpmsvi72-686Jum [facility]burgComment on above:Performed By: #### 99056 ####[facility] [place] [address], USAGlucose [Mass/Vol]124 mg/xBTyjl09-083Pyx [facility]burgComment on above:Performed By: #### 04951 ####[facility] [place] [address], USAGlucose [Mass/Vol]141 mg/uADifq39-596Tfg [facility]Comment on above:Performed By: #### 34396 ####[facility] [place] [address], USAGlucose [Mass/Vol]143 mg/zVZiav16-451Vku [facility]Comment on above:Performed By: #### 96959 ####[facility] [place] [address], USAPORTABLE CHEST 1 VIEWon 66-68-2775MHJCGEZU CHEST 1 [facility] CenterComment on above:Order Comment: Check Chest Tube Position, s/p mediasteinal tube removalPORTABLE CHEST 1 [facility] CenterComment on above:Order Comment: evaluate for AtelectasisAPTTon 27-11-5737pMFM Coag (Bld) [Time]28.6 aBomeyu23.0-35.0The [facility]Comment on above:Order Comment: post op day 1No: Do not add to previous drawResult Comment: ALL RESULTS MUST BE INTERPRETED WITH RESPECT TO BLOOD DRAWING ARTIFACTOR DILUTION ERROR OF ANTICOAGULANT AT THE TIME OF SAMPLING.THE APTT SHOULD NOT BE USED TO MONITOR UNFRACTIONATED HEPARIN THERAPY, THIS LABORATORY NO LONGER HAS AN ESTABLISHED THERAPEUTIC RANGE BASEDON THE APTT. IT IS RECOMMENDED THAT THE UFH - HEPARIN ASSAY (ANTI- XAACTIVITY) BE USED FOR THIS PURPOSE.Performed By: #### 98948, 88298 ####[facility] [place] [address], [facility] ARTERIAL BLOOD GAS WITH ICAon 08-56-0320NGEYNSCG SYSTEMSSCNoUC Medical CenterComment on above:Performed By: #### 60515 ####[facility] [place] [address], [facility] HEALTH CENTERIONIZED CALCIUM 1.15 mmol/LNormal1.13-1.32The [facility]burgComment on above:Performed By: #### 09952 ####[facility] [place] [address], [facility] HE[facility] CENTERLPM4.0 LPMNormalThe [facility]burgComment on above:Performed By: #### 28109 ####[facility] [place] [address], [facility] HEALTH CENTEROxygen (Bld) [Partial pressure]63 mm[Hg]Fjv43-089Ota [facility]burgComment on above:Performed By: #### 82733 ####[facility] [place] [address], [facility] CENTEROxygen saturation in Blood94.2 %Normal 94.0-97.0The [facility]burgComment on above:Performed By: #### 81628 ####[facility] [facility] [address], [facility] CENTERBASE EXCESS3 mmol/KFofyns-2-3Rzz [facility] Comment on above:Performed By: #### 81218 ####[facility] [facility] [address], USADELIVERY SYSTEMSMVNoUC Medical CenterComment on above:Performed By: #### 88809 ####[facility] [facility] [address], [facility] VIH269 %NormalThe [facility]burgComment on above:Performed By: #### 28708 ####[place] [address] [facility] [address], [facility] HEALTH CENTERHCO3 (Bld) [Moles/Vol]27 mmol/VGnxrac51-46Ggm [facility]Comment on above:Performed By: #### 65236 ####[facility] [facility] [address], [facility] CENTERIONIZED CALCIUM1.17 mmol/LNormal1.13-1.32The [facility]burgComment on above: Performed By: #### 85553 ####[facility] [facility] [address], USAMIN MNXCQI71.0NormalThGenesis HospitalComment on above:Performed By: #### 03105 ####[facility] [facility] [address], USAMODALITYSPONTNoUC Medical CenterComment on above:Performed By: #### 94849 ####[facility] [place] [address].[place] [address], [place] Oxygen (Bld) [Partial pressure]79 mm[Hg]Scc94-320Qck [facility]burgComment on above:Performed By: #### 78596 ####[facility] [facility] [address], [facility] HEALTH CENTEROxygen saturation in Blood96.5 %Dukaqn40.0-97.0The [facility]burgComment on above:Performed By: #### 54910 ####[facility] [facility] [address], JTLTNR256 ysWoKetpsx14-40Ewk [facility]Comment on above:Performed By: #### 27518 ####[facility] [facility] [address], USAPEEP5.0 CMH20 NormalThe [facility]Comment on above:Performed By: #### 35035 ####[facility] [facility] [address], USAPF GSEQH958 mmHgNormalThGenesis HospitalComment on above:Performed By: #### 60752 ####[facility] [facility] [address], USApH (Bld)7.47 [pH]High7.35-7.45The [facility]Comment on above:Performed By: #### 60552 ####[facility] [facility] [address], USAPRESSURE KPAEDOM9VavhujTeqUC Medical CenterComment on above:Performed By: #### 46791 ####[facility] [facility] [address], USABASE EXCESS2 mmol/OKeqfby-2-0Grt [facility]Comment on above:Performed By: #### 19472 ####[facility] [facility] [address], USADELIVERY SYSTEMSSelect Medical Specialty Hospital - Cincinnati NorthComment on above:Performed By: #### 37213 ####[facility] [facility] [address], [facility] CSN380 %NormalThe [facility]Comment on above:Performed By: #### 73227 ####[facility] [facility] [address], [facility] HEALTH CENTERHCO3 (Bld) [Moles/Vol]26 mmol/HSzddlo61-80Ekx [facility]Comment on above:Performed By: #### 93180 ####[place] [address] [facility] [place] [address], [facility] HE[facility] CENTERIONIZED CALCIUM1.17 mmol/LNormal1.13-1.32The [facility]Comment on above: Performed By: #### 82870 ####[facility] [facility] [address], USAMIN SZYKYC17.3NoUC Medical CenterComment on above:Performed By: #### 76843 ####[place] [address] [facility] [place] [address], USAMODALITYSISelect Medical Specialty Hospital - Cincinnati NorthComment on above:Performed By: #### 58956 ####[facility] [facility] [address], USAOxygen (Bld) [Partial pressure]79 mm[Hg]Wzd47-452Gfe [facility] Comment on above:Performed By: #### 47323 ####[facility] [facility] [address], [facility] HEALTH CENTEROxygen saturation in Blood96.8 % Tvlpre14.0-97.0The [facility]burgComment on above:Performed By: #### 83324 ####[facility] [facility] [address] [place] [place] [address], NBJMIC206 qrVcUlszvz41-12Awh [facility]Comment on above:Performed By: #### 47464 ####[facility] [facility] [address], USAPEEP8.0 IRF85XjjteiXdrUC Medical CenterComment on above:Performed By: #### 85784 ####[facility] [facility] [address], [place] PF BSMUH849 mmHgNoUC Medical CenterComment on above: Performed By: #### 26267 ####[facility] [facility] [address], USApH (Bld)7.46 [pH]High7.35-7.45The [facility]Comment on above:Performed By: #### 20775 ####[facility] [facility] [address], USAPRESSURE FMNYGJS82Fmwhad The [facility]burgComment on above:Performed By: #### 23613 ####[facility] [facility] [address], [place] Respiratory rate18 /minNormUniversity Hospitals Ahuja Medical CenterComment on above:Performed By: #### 67344 ####[facility] [facility] [address], USATIDAL VOLUME (VT) FL421NivuoqKcgUC Medical CenterComment on above:Performed By: #### 86467 ####[facility] [facility] [address], USABASE EXCESS-4 mmol/LLow-2-3The [facility]Comment on above:Performed By: #### 48888 ####[facility] [facility] [address], USADELIVERY SYSTEMSSelect Medical Specialty Hospital [facility] Comment on above:Performed By: #### 04172 ####[facility] [place] [address], IUDRFA209 %NormalThe [facility]burgComment on above:Performed By: #### 51476 ####[facility] [place] [address], [facility] CENTERHCO3 (Bld) [Moles/Vol]20 mmol/KUxy37-66Bxp [facility]Comment on above:Performed By: #### 84605 ####[place] [address] [place] [address], [facility] CENTERIONIZED CALCIUM1.14 mmol/LNormal1.13-1.32The [facility]Comment on above:Performed By: #### 84697 ####[facility] [place] [address], [place] MIN SASWQE94.5McCullough-Hyde Memorial HospitalComment on above: Performed By: #### 24146 ####[place] [address] [facility] [address], [facility]ALTH CENTERMODALITYSISelect Medical Specialty Hospital - Cincinnati NorthComment on above:Performed By: #### 59256 ####[facility] [place] [address], [facility]ALTH CENTEROxygen (Bld) [Partial pressure] 121 mm[Hg]Critically xais51-572Phi [facility]burgComment on above:Performed By: #### 42707 ####[facility] [place] [address], [facility] HEALTH CENTEROxygen saturation in Blood97.1 %High94.0-97.0 The [facility]burgComment on above:Performed By: #### 54435 ####[facility] [place] [address], [place] RPO485 ldGzJrk08-81Vyw [facility]Comment on above: Performed By: #### 99262 ####[facility] [place] [address], USAPEEP8.0 TJN57CdovtiUziUC Medical CenterComment on above:Performed By: #### 87242 ####[facility] [place] [address], USApH (Bld)7.38 [pH]Normal7.35-7.45 The [facility]burgComment on above:Performed By: #### 66960 ####[facility] [facility] [address], [place] PRESSURE SMAGIFO60VcndlkZtdMcCullough-Hyde Memorial HospitalComment on above: Performed By: #### 66540 ####[facility] [facility] [address], USARespiratory rate18 /minNoUC Medical CenterComment on above:Performed By: #### 84973 ####[facility] [facility] [address], USATIDAL VOLUME (VT) CC700 NormalThe [facility]burgComment on above:Performed By: #### 54806 ####[facility] [facility] [address], USABASE EXCESS-8 mmol/LLow-2-3The [facility] Comment on above:Performed By: #### 64323 ####[facility] [facility] [place] [address], USADELIVERY SYSTEMSMVNoUC Medical CenterComment on above:Performed By: #### 06773 ####[facility] [place] [address].[place] [address], [place] CDD985 %NormalThe [facility]burgComment on above:Performed By: #### 60008 ####[facility] [facility] [place] [address], [facility] CENTERHCO3 (Bld) [Moles/Vol]18 mmol/KZqv33-35Yyf [facility]Comment on above:Performed By: #### 54205 ####[facility] [facility] [address], [facility] CENTERIONIZED CALCIUM1.06 mmol/LLow1.13-1.32The [facility]burgComment on above: Performed By: #### 13872 ####[place] [address] [facility] [place] [address], USAMIN BLPUPF57.6NormUniversity Hospitals Ahuja Medical CenterComment on above:Performed By: #### 03335 ####[place] [address] [facility] [place] [address], [facility] CENTERMODALITYSIMVNoUC Medical CenterComment on above:Performed By: #### 41535 ####[address] [place] [address], [facility] CENTEROxygen (Bld) [Partial pressure]86 mm[Hg]Bnocsl34-586Drp [facility] Comment on above:Performed By: #### 24717 ####[facility] [facility] [address], [facility] CENTEROxygen saturation in Blood96.6 % Doxemi17.0-97.0The [facility]burgComment on above:Performed By: #### 52819 ####[address] [place] [address], HJZSCP337 mtUfEdq77-94Lse [facility]burgComment on above:Performed By: #### 63231 ####[facility] [place] [address].[place] [address], USAPEEP8.0 TUX00XzxuxgKssMcCullough-Hyde Memorial HospitalComment on above:Performed By: #### 98346 ####[facility] [place] [address], [place] PF GCCPL122 mmHgNoUC Medical CenterComment on above: Performed By: #### 53503 ####[facility] [place] [address], USApH (Bld)7.32 [pH]Low7.35-7.45The [facility]burgComment on above:Performed By: #### 38958 ####[facility] [place] [address], USAPRESSURE QFXKJFU64Baqrli The [facility]burgComment on above:Performed By: #### 58185 ####[facility] [place] [address], [place] Respiratory rate18 /minNoUC Medical CenterComment on above:Performed By: #### 76664 ####[facility] [place] [address], USATIDAL VOLUME (VT) [id number]-Hyde Memorial HospitalComment on above:Performed By: #### 59833 ####[facility] [place] [address], [facility] HEALTH CENTERBASIC METABOLIC PANELon 23-95-0600Vswatii [Mass/Vol]8.0 mg/dLLow8.6-10.3The [facility]burgComment on above:Order Comment: No: Do not add to previous drawPerformed By: #### 74241, 67954 ####[facility] [place] [address], USAChloride [Moles/Vol]107 mmol/ENdbzui88-564Xaa [facility]burgComment on above:Order Comment: No: Do not add to previous drawPerformed By: #### 80605, 06628 ####[facility] [place] [address], USACO2 [Moles/Vol]26 mmol/L Awgvlv15-22Fel [facility]burgComment on above:Order Comment: No: Do not add to previous drawPerformed By: #### 51188, 34018 ####[facility] [place] [address], [place] Creatinine [Mass/Vol]0.90 mg/dLNormal0.70-1.30The [facility]burgComment on above:Order Comment: No: Do not add to previous drawPerformed By: #### 42550, 94114 ####[facility] [place] [address], USAGFR/1.73 sq M.predicted among blacks MDRD (S/P/Bld) [Vol rate/Area]mL/min/{1.73_m2}Normal>60The [facility] Comment on above:Order Comment: No: Do not add to previous drawResult Comment: Calculation may not be valid for patients over 70 yearsPerformed By: #### 42339, 42135 ####[facility] [place] [address], USAGFR/1.73 sq M.predicted among non-blacks MDRD (S/P/Bld) [Vol rate/Area]mL/min/{1.73_m2}Normal>60The [facility] Comment on above:Order Comment: No: Do not add to previous drawResult Comment: Calculation may not be valid for patients over 70 yearsPerformed By: #### 73269, 39949 ####[facility] [place] [address], USAGlucose [Mass/Vol]126 mg/dDOnae09-228Zou [facility]burgComment on above:Order Comment: No: Do not add to previous drawPerformed By: #### 29949, 85332 ####[facility] [place] [address], USAPotassium [Moles/Vol]3.8 mmol/LNormal3.5-5.1The [facility]burgComment on above:Order Comment: No: Do not add to previous drawPerformed By: #### 61080, 08775 ####[facility] [place] [address], USASodium [Moles/Vol]136 mmol/LNnvewl647-015Pix [facility]burgComment on above:Order Comment: No: Do not add to previous drawPerformed By: #### 54080, 58413 ####[facility] [place] [address], [place] Urea nitrogen [Mass/Vol]21 mg/dLNormal7-25The [facility]burgComment on above:Order Comment: No: Do not add to previous drawPerformed By: #### 53186, 86179 ####[facility] [place] [address], USACalcium [Mass/Vol]7.8 mg/dLLow8.6-10.3The [facility]burgComment on above:Order Comment: post op day 1No: Do not add to previous drawPerformed By: #### 13370, 43422 ####[facility] [place] [address], USAChloride [Moles/Vol]103 mmol/ICzdriz32-792Ydt [facility]burgComment on above:Order Comment: post op day 1No: Do not add to previous drawPerformed By: #### 75779, 04976 ####[facility] [place] [address], USACO2 [Moles/Vol]20 mmol/MFei79-77Xkf [facility]burgComment on above:Order Comment: post op day 1No: Do not add to previous drawPerformed By: #### 42659, 46572 ####[facility] [place] [address], USACreatinine [Mass/Vol]1.25 mg/dLNormal 0.70-1.30The [facility]burgComment on above:Order Comment: post op day 1No: Do not add to previous drawPerformed By: #### 04430, 56946 ####[facility] [place] [address], [place] eGFR- non- Okoytuqd76 ml/min/1.73sq mAbnormal>60The [facility]burgComment on above:Order Comment: post op day 1No: Do not add to previous drawResult Comment: Calculation may not be valid for patients over 70 yearsPerformed By: #### 50266, 45577 ####[facility] [place] [address], USAGFR/1.73 sq M.predicted among blacks MDRD (S/P/Bld) [Vol rate/Area]mL/min/{1.73_m2}Normal>60The [facility]burgComment on above:Order Comment: post op day 1No: Do not add to previous drawResult Comment: Calculation may not be valid for patients over 70 yearsPerformed By: #### 04702, 56240 ####[facility] [place] [address], USAGlucose [Mass/Vol]331 mg/zNRnlr41-799Yvl [facility]burgComment on above:Order Comment: post op day 1No: Do not add to previous drawPerformed By: #### 97339, 92300 ####[facility] [place] [address], USAPotassium [Moles/Vol]3.2 mmol/LLow3.5-5.1The [facility]burgComment on above:Order Comment: post op day 1No: Do not add to previous drawPerformed By: #### 02139, 32858 ####[facility] [address], USASodium [Moles/Vol]135 mmol/SYjy799-519Lwq [facility]burgComment on above:Order Comment: post op day 1No: Do not add to previous drawPerformed By: #### 87641, 90903 ####[facility] [address], USAUrea nitrogen [Mass/Vol]24 mg/dLNormal7-25The [facility]amisburgComment on above:Order Comment: post op day 1No: Do not add to previous drawPerformed By: #### 30598, 59190 ####[facility] [place] [address], USACBC COMPLETE BLOOD COUNTon 21-32-0858Ztlhqiifvgo distribution width (RBC) [Ratio]14.6 %Uppqie41.5-15.0The [facility]amisburgComment on above:Order Comment: post op day 1No: Do not add to previous drawPerformed By: #### 61357 ####[facility] [place] [address], USAHematocrit (Bld) [Volume fraction]30.5 %Low39.0-50.0The [facility] MiamisburgComment on above:Order Comment: post op day 1No: Do not add to previous drawPerformed By: #### [id number] ####[facility] [place] [address], USAHemoglobin (Bld) [Mass/Vol]10.2 g/dLLow13.0-17.0The [facility]amisburgComment on above:Order Comment: post op day 1No: Do not add to previous drawPerformed By: #### [id number] ####[facility] [place] [address], [place] MCH (RBC) [Entitic mass]30.9 mhEgubpy67.0-33.0The [facility]amisburgComment on above:Order Comment: post op day 1No: Do not add to previous drawPerformed By: #### [id number] ####[facility] [place] [address], [facility] CENTERMCHC (RBC) [Mass/Vol]33.4 g/oGEstcqh74.0-35.0 The [facility] MiamisburgComment on above:Order Comment: post op day 1No: Do not add to previous drawPerformed By: #### [id number] ####[facility], [place] [address], [facility]ENTERMCV (RBC) [Entitic vol]92.4 qFNocief16.0-98.0The [facility] MiamisburgComment on above:Order Comment: post op day 1No: Do not add to previous drawPerformed By: #### [id number] ####[facility] [facility] [place] [address], [facility]ALTH CENTERNucleated RBC/100 WBC (Bld) [Ratio]0 %Normal0-0The [facility] MiamisburgComment on above:Order Comment: post op day 1No: Do not add to previous drawPerformed By: #### [id number] ####[facility] [facility] [address], USAPLAT [id number] 10*3/pPScvsqm656-506 The [facility] MiamisburgComment on above:Order Comment: post op day 1No: Do not add to previous drawPerformed By: #### [id number] ####[facility] [place] [address], [facility] CENTERRBC (Bld) [#/Vol] 3.30 10*6/uLLow4.20-5.70The [facility] MiamisburgComment on above: Order Comment: post op day 1No: Do not add to previous drawPerformed By: #### [id number] ####[facility] [place] [address], USAWBC (Bld) [#/Vol]17.37 10*3/uLHigh4.00-10.60The [facility] MiamisburgComment on above:Order Comment: post op day 1No: Do not add to previous drawPerformed By: #### 27583 ####[facility] [place] [address], [facility] CENTERCBC W/DIFFon 24-57-1501EPY IMM GRANS0.1 10*3/uLNormal0.0-0.2The [facility]amisburgComment on above:Order Comment: No: Do not add to previous drawPerformed By: #### 52198 ####[facility] [facility] [place] [address], [place] ABS NEUTROPHILS8.3 10*3/uLHigh1.6-7.6The [facility] Comment on above:Order Comment: No: Do not add to previous drawPerformed By: #### 60334 ####[facility] [place] [address], USABasophils (Bld) [#/Vol]0.0 10*3/uLNormal0.0-0.2The [facility]amisburgComment on above:Order Comment: No: Do not add to previous drawPerformed By: #### 13705 ####[facility] [place] [address], [facility] CENTERBasophils/100 WBC (Bld)0.1 %Normal0.0-1.0The [facility]amisburgComment on above:Order Comment: No: Do not add to previous drawPerformed By: #### 28843 ####[facility] [place] [address], USAEosinophils (Bld) [#/Vol]0.0 10*3/uLNormal0.0-0.5The [facility] MiamisburgComment on above: Order Comment: No: Do not add to previous drawPerformed By: #### 63471 ####[facility] [facility] [address], [facility] Eosinophils/100 WBC (Bld)0.0 %Normal0.0-6.0The [facility]amisburgComment on above:Order Comment: No: Do not add to previous drawPerformed By: #### 61328 ####[facility] [place] [address], [facility] CENTERErythrocyte distribution width (RBC) [Ratio]14.4 %Hxogyc96.5-15.0 The [facility] MiamisburgComment on above:Order Comment: No: Do not add to previous drawPerformed By: #### [id number] ####[place] [address], [facility] HE[facility] CENTERHematocrit (Bld) [Volume fraction]28.9 %Low39.0-50.0The [facility] MiamisburgComment on above:Order Comment: No: Do not add to previous drawPerformed By: #### 78127 ####[facility] [place] [address].[place] [address], [facility] Hemoglobin (Bld) [Mass/Vol]9.6 g/dLLow13.0-17.0The [facility] MiamisburgComment on above:Order Comment: No: Do not add to previous drawPerformed By: #### [id number] ####[facility] [place] [address].[place] [address], [facility] CENTERIMMATURE GRANS0.5 %Normal0.0-1.0The [facility]amisburgComment on above:Order Comment: No: Do not add to previous drawPerformed By: #### 43222 ####[place] [address], [facility] HE[facility] CENTERLymphocytes (Bld) [#/Vol]1.3 10*3/uLNormal1.2-4.0The [facility]burgComment on above:Order Comment: No: Do not add to previous drawPerformed By: #### 66335 ####[facility] [place] [address], [facility] CENTERLymphocytes/100 WBC (Bld)12.1 %Low20.0-45.0 The [facility] MiamisburgComment on above:Order Comment: No: Do not add to previous drawPerformed By: #### 81918 ####[facility] [facility] [address], [facility] CENTERMCH (RBC) [Entitic mass] 30.6 gaLwcctr12.0-33.0The [facility]amisburgComment on above: Order Comment: No: Do not add to previous drawPerformed By: #### 31701 ####[facility] [facility] [address], [facility] MCHC (RBC) [Mass/Vol]33.2 g/oOGnkwog54.0-35.0The [facility]amisburgComment on above:Order Comment: No: Do not add to previous drawPerformed By: #### [id number] ####[address] [place] [address], [facility] CENTERMCV (RBC) [Entitic vol]92.0 vNPadany29.0-98.0The [facility]burgComment on above:Order Comment: No: Do not add to previous drawPerformed By: #### 78577 ####[facility] [facility] [address], [facility] CENTERMonocytes (Bld) [#/Vol]1.2 10*3/uLHigh0.1-1.0 The [facility]amisburgComment on above:Order Comment: No: Do not add to previous drawPerformed By: #### 90901 ####[facility] [place] [address], CRPGMZMM53.9 %Normal5.0-12.0 The [facility]amisburgComment on above:Order Comment: No: Do not add to previous drawPerformed By: #### 87175 ####[facility] [place] [address], USANeutrophils/100 WBC (Bld) 76.4 %High40.0-72.0The [facility]amisburgComment on above:Order Comment: No: Do not add to previous drawPerformed By: #### 24586 ####[facility] [place] [address], USANucleated RBC/100 WBC (Bld) [Ratio]0 %Normal0-0The [facility] Comment on above:Order Comment: No: Do not add to previous drawPerformed By: #### 78203 ####[facility] [place] [address], USAPLAT CCL154 10*3/kQFeplpx521-968Mta [facility]burgComment on above:Order Comment: No: Do not add to previous drawPerformed By: #### 67603 ####[facility] [place] [address], USARBC (Bld) [#/Vol]3.14 10*6/uLLow4.20-5.70The [facility]burgComment on above:Order Comment: No: Do not add to previous draw Performed By: #### 90546 ####[facility] [place] [address], USAWBC (Bld) [#/Vol]10.92 10*3/uLHigh4.00-10.60The [facility]burgComment on above:Order Comment: No: Do not add to previous drawPerformed By: #### 97290 ####[facility] [place] [address], USALACTATE BLOODon 58-90-3929Djegghh [Moles/Vol]0.9 mmol/LNormal.5-2.2The [facility]burgComment on above:Order Comment: No: Do not add to previous drawPerformed By: #### 32557 ####[facility] [place] [address], [place] Lactate [Moles/Vol]3.8 mmol/LHigh.5-2.2The [facility] Comment on above:Order Comment: No: Do not add to previous drawResult Comment: M-CRITICAL RESULT(S) REVIEWED, CALLED TO AND READ BACK BY [employer] DRIVER 0855 Performed By: #### [id number] ####[facility] [place] [address].[place] [address], USALactate [Moles/Vol]7.1 mmol/LCritically high.5-2.2The [facility]burgComment on above:Order Comment: post op day 1No: Do not add to previous drawResult Comment: M-PREVIOUS CRITICAL RESULT Performed By: #### 01680 ####[facility] [place] [address], USAMAGNESIUM BLOODon 18-66-2580Kgjasmknn [Mass/Vol]2.3 mg/dLNormal1.9-2.7The [facility]burgComment on above:Order Comment: No: Do not add to previous drawPerformed By: #### 50595, 02504 ####[facility] [place] [address], [place] Magnesium [Mass/Vol]2.2 mg/dLNormal1.9-2.7The [facility]burgComment on above:Order Comment: added from priorPerformed By: #### 41755, 20013 ####[facility] [place] [address], USAMagnesium [Mass/Vol]2.4 mg/dLNormal1.9-2.7The [facility]burgComment on above:Order Comment: post op day 1No: Do not add to previous drawPerformed By: #### 01306, 90657 ####[facility] [place] [address], USAOperative Reporton 04-09-2021 Operative ReportNoUC Medical CenterPOC GLUCOSE LABon [id number] [Mass/Vol]162 mg/wMNrsl70-324Jdv [facility]burgComment on above:Performed By: #### 74349 ####[facility] [place] [address], USAGlucose [Mass/Vol]128 mg/dLHigh 70-100The [facility]amisburgComment on above:Performed By: #### 25015 ####[facility] [place] [address], USAGlucose [Mass/Vol]117 mg/sRVoxz55-850Vbu [facility]burgComment on above:Performed By: #### 14920 ####[facility] [place] [address], USAGlucose [Mass/Vol]110 mg/dLHigh 70-100The [facility]amisburgComment on above:Performed By: #### 49325 ####[facility] [place] [address], USAGlucose [Mass/Vol]65 mg/tLLoe98-750Fes [facility]burgComment on above:Performed By: #### 66480 ####[facility] [place] [address], USAGlucose [Mass/Vol]86 mg/dLNormal 70-100The [facility]amisburgComment on above:Performed By: #### 75640 ####[facility] [place] [address], USAGlucose [Mass/Vol]127 mg/sLPpoc06-318Smx [facility]burgComment on above:Performed By: #### 71632 ####[facility] [place] [address], USAGlucose [Mass/Vol]230 mg/dLHigh 70-100The [facility]burgComment on above:Performed By: #### 84373 ####[facility] [place] [address], USAGlucose [Mass/Vol]244 mg/mKAeqf76-632Iaw [facility]burgComment on above:Performed By: #### 25858 ####[facility] [place] [address], USAGlucose [Mass/Vol]283 mg/dLHigh 70-100The [facility]amisburgComment on above:Performed By: #### 05580 ####[facility] [place] [address], USAGlucose [Mass/Vol]326 mg/aLFrbl11-339Bbj [facility]burgComment on above:Performed By: #### 65120 ####[facility] [place] [address], USAGlucose [Mass/Vol]347 mg/dLHigh 70-100The [facility]amisburgComment on above:Performed By: #### 69900 ####[facility] [place] [address], USAGlucose [Mass/Vol]258 mg/bBMjcv41-678Bnn [facility]burgComment on above:Performed By: #### 84057 ####[facility] [place] [address], USAGlucose [Mass/Vol]334 mg/dLHigh 70-100The [facility]amisburgComment on above:Performed By: #### 75996 ####[facility] [place] [address], USAGlucose [Mass/Vol]338 mg/lCOuxz79-905Dug [facility]burgComment on above:Performed By: #### 13929 ####[facility] [place] [address], USAGlucose [Mass/Vol]321 mg/dLHigh 70-100The [facility]amisburgComment on above:Performed By: #### 68538 ####[facility] [place] [address], USAGlucose [Mass/Vol]302 mg/sKLctl03-612Guh [facility]amisburgComment on above:Performed By: #### 24751 ####[facility] [place] [address], USAPORTABLE CHEST 1 VIEWon 27-77-7384IKNGFZKP CHEST 1 VIEWNormalThe [facility] Comment on above:Order Comment: Check Chest Tube PositionPOTASSIUM BLOODon 91-92-9773Zthtuoynx [Moles/Vol]4.6 mmol/LNormal3.5-5.1The [facility]amisburgComment on above:Order Comment: No: Do not add to previous draw Performed By: #### 01813, 27948 ####[facility] [place] [address], USAPROTHROMBIN TIMEon 39-95-4248DJV Coag (PPP) [Relative time]1.22 {INR}High0.91-1.16The [facility] Comment on above:Order Comment: post op day 1No: Do not add to previous draw Result Comment: ACCCP RECOMMENDED INR FOR WARFARIN THERAPY CONDITION INRPROPHYLAXIS OF VENOUS THROMBOSIS 2-3(HIGH-RISK SURGERY)TREATMENT OF VENOUS THROMBOSIS 2-3TREATMENT OF PULMONARY EMBOLISM 2-3PREVENTION OF SYSTEMIC EMBOLISM: 2-3 ACUTE MYOCARDIAL INFARCTION TISSUE HEART VALVES VALVULAR HEART DISEASE ATRIAL FIBRILLATION RECURRENT SYSTEMIC EMBOLISMMECHANICAL HEART VALVE 2.5-3.5 FROM: ORAL ANTICOAGULANTS. MECHANISM OF ACTION, CLINICALEFFECTIVENESS, AND OPTIMAL THERAPEU TIC RANGE. [id number];108:231S-246S.Performed By: #### 23713, 61794 ####[facility] [facility] [address], [facility] PT Coag (PPP) [Time]15.4 sHigh12.3-14.8The [facility] Comment on above:Order Comment: post op day 1No: Do not add to previous draw Result Comment: ALL RESULTS MUST BE INTERPRETED WITH RESPECT TO BLOOD DRAWING ARTIFACTOR DILUTION ERROR OF ANTICOAGULANT AT THE TIME OF SAMPLING.Performed By: #### 75609, 85088 ####[facility] [place] [address], [facility] CENTERACTIVATED CLOTTING TIMEon 88-39-1375CXTCHSIPI CLOTTING [id number] [facility]amisburgComment on above: Performed By: #### 90054 ####[facility] [place] [address], [facility] CENTERACTIVATED CLOTTING [id number] [facility]burgComment on above:Performed By: #### 56403 ####[facility] [place] [address], [facility] CENTERACTIVATED CLOTTING [id number] [facility]burgComment on above:Performed By: #### 23221 ####[facility] [place] [address], USAACTIVATED CLOTTING [id number] [facility]amisburgComment on above:Performed By: #### 44760 ####[facility] [place] [address], [place] ACTIVATED CLOTTING [id number] [facility] Comment on above:Performed By: #### 64767 ####[facility] [place] [address], USAACTIVATED CLOTTING [id number] secHigh 82-152The [facility]amisburgComment on above:Performed By: #### 88248 ####[facility] [place] [address], USAACTIVATED CLOTTING [id number] [facility]burgComment on above:Performed By: #### 57128 ####[facility] [facility] [place] [address], [facility] CENTERAPTTon 33-26-1550wAGU Coag (Bld) [Time]30.4 jWbupow87.0-35.0The [facility] Comment on above:Order Comment: No: Do not add to previous drawResult Comment: ALL RESULTS MUST BE INTERPRETED WITH RESPECT TO BLOOD DRAWING ARTIFACTOR DILUTION ERROR OF ANTICOAGULANT AT THE TIME OF SAMPLING.THE APTT SHOULD NOT BE USED TO MONITOR UNFRACTIONATED HEPARIN THERAPY, THIS LABORATORY NO LONGER HAS AN ESTABLISHED THERAPEUTIC RANGE BASEDON THE APTT. IT IS RECOMMENDED THAT THE UFH - HEPARIN ASSAY (ANTI-XAACTIVITY) BE USED FOR THIS PURPOSE.Performed By: #### 84954, 63041 ####[facility] [facility] [address], [facility] CENTERaPTT Coag (Bld) [Time]30.6 gJtwacp45.0-35.0The [facility]amisburgComment on above:Result Comment: ALL RESULTS MUST BE INTERPRETED WITH RESPECT TO BLOOD DRAWING ARTIFACTOR DILUTION ERROR OF ANTICOAGULANT AT THE TIME OF SAMPLING.THE APTT SHOULD NOT BE USED TO MONITOR UNFRACTIONATED HEPARIN THERAPY, THIS LABORATORY NO LONGER HAS AN ESTABLISHED THERAPEUTIC RANGE BASEDON THE APTT. IT IS RECOMMENDED THAT THE UFH - HEPARIN ASSAY (ANTI-XAACTIVITY) BE USED FOR THIS PURPOSE.Performed By: #### 95856, 51879, 89678 ####[facility] [place] [address], USAARTERIAL BLOOD GAS WITH ICAon 87-22-2110HAQW EXCESS-4 mmol/LLow-2-3 The [facility] MiamisburgComment on above:Order Comment: on arrival to CVUPerformed By: #### 69542 ####[facility] [place] [address], USADELIVERY SYSTEMSSt. Luke's Fruitlande [facility]burgComment on above:Order Comment: on arrival to CVUPerformed By: #### 41820 ####[facility] [place] [address], WWVOTG226 %NormalThe [facility] MiamisburgComment on above:Order Comment: on arrival to CVUPerformed By: #### 20509 ####[facility] [place] [address], USAHCO3 (Bld) [Moles/Vol]21 mmol/ARfdgpi77-81Zwt [facility]burgComment on above:Order Comment: on arrival to CVUPerformed By: #### 42182 ####[facility] [place] [address], USAIONIZED CALCIUM1.09 mmol/LLow1.13-1.32The [facility]amisburgComment on above:Order Comment: on arrival to CVUPerformed By: #### 50335 ####[facility] [place] [address], [place] MIN CMRZIA42.2NormalThe [facility] MiamisburgComment on above: Order Comment: on arrival to CVUResult Comment: Result changed by DOTTY on 04/08/2021 19:16. The previous value was16.0.Performed By: #### 92993 ####[facility] [place] [address], [place] MODALITYSIMVNoUC Medical CenterComment on above:Order Comment: on arrival to CVUPerformed By: #### 08861 ####[facility] [place] [address], USAOxygen (Bld) [Partial pressure]69 mm[Hg]Kzt74-858Cnj [facility]burgComment on above:Order Comment: on arrival to CVUPerformed By: #### 52537 ####[facility] [place] [address], USAOxygen saturation in Blood93.8 %Low94.0-97.0The [facility] MiamisburgComment on above:Order Comment: on arrival to CVUPerformed By: #### 91667 ####[facility] [place] [address], LYMHMY335 mmHgNormal 35-45The [facility] MiamisburgComment on above:Order Comment: on arrival to CVUPerformed By: #### 33952 ####[facility] [place] [address], USAPEEP8.0 LGF29OigiqcSwjUC Medical CenterComment on above:Order Comment: on arrival to CVU Performed By: #### 70966 ####[facility] [place] [address], USAPF RATIO99 mmHgNormUniversity Hospitals Ahuja Medical CenterComment on above:Order Comment: on arrival to CVUPerformed By: #### 55550 ####[facility] [place] [address], [place] pH (Bld)7.37 [pH]Normal7.35-7.45The [facility]amisburgComment on above:Order Comment: on arrival to CVUPerformed By: #### 06921 ####[facility] [place] [address], USAPRESSURE CDDFGLZ02QtsttePonUC Medical CenterComment on above:Order Comment: on arrival to CVUPerformed By: #### 10799 ####[facility] [place] [address], USARespiratory rate16 /min NormalThe [facility] MiamisburgComment on above:Order Comment: on arrival to CVUPerformed By: #### 39194 ####[facility] [place] [address], USATIDAL VOLUME (VT) CC980LpkpvxQtmMcCullough-Hyde Memorial HospitalComment on above:Order Comment: on arrival to CVUPerformed By: #### 47247 ####[facility] [place] [address], USABASE EXCESS-4 mmol/LLow-2-3The [facility]amisburgComment on above:Performed By: #### 68632 ####[facility] [place] [address], USADELIVERY SYSTEMS VENTNoUC Medical CenterComment on above:Performed By: #### 16191 ####[facility] [place] [address], HTRKSU279 %NormalThe [facility] MiamisburgComment on above: Performed By: #### 65220 ####[facility] [place] [address], USAHCO3 (Bld) [Moles/Vol]23 mmol/CXqzfsr49-37Fvl [facility]burgComment on above:Performed By: #### 51341 ####[facility] [place] [address], [place] IONIZED CALCIUM1.14 mmol/LNormal1.13-1.32The [facility] Comment on above:Performed By: #### 78438 ####[facility] [place] [address], USAMIN VOLUME9.0NormUniversity Hospitals Ahuja Medical CenterComment on above:Performed By: #### 03587 ####[facility] [place] [address], USAMODALITYSIMV NormalThe [facility] MiamisburgComment on above:Performed By: #### 25983 ####[facility] [place] [address], USAOxygen (Bld) [Partial pressure]70 mm[Hg]Sln50-558Pky [facility] MiamisburgComment on above:Performed By: #### 46974 ####[facility] [place] [address], USAOxygen saturation in Blood92.5 %Low94.0-97.0The [facility] MiamisburgComment on above:Performed By: #### 58435 ####[facility] [place] [address], XMXXVB810 zzIhSvcj21-35Szw [facility]amisburgComment on above:Performed By: #### 42128 ####[facility] [place] [address], USAPEEP8.0 VFV11MetafkMrrUC Medical CenterComment on above:Performed By: #### [id number] ####[facility] [place] [address], [place] PF [id number] mmHgNormUniversity Hospitals Ahuja Medical CenterComment on above: Performed By: #### [id number] ####[facility] [place] [address], USApH (Bld)7.28 [pH]Low7.35-7.45The [facility] MiamisburgComment on above:Performed By: #### [id number] ####[facility] [place] [address], USAPRESSURE [id number] The [facility] MiamisburgComment on above:Performed By: #### [id number] ####[facility] [place] [address], [place] Respiratory rate14 /minNormUniversity Hospitals Ahuja Medical CenterComment on above:Performed By: #### [id number] ####[facility] [place] [address], USATIDAL VOLUME ([place]) [id number] Medical CenterComment on above:Performed By: #### [id number] ####[facility] [place] [address], USABASIC METABOLIC PANELon [id number] [Mass/Vol]7.7 mg/dLLow8.6-10.3The [facility] MiamisburgComment on above:Order Comment: No: Do not add to previous drawPerformed By: #### [id number], [id number], [id number] ####[facility] [place] [address], USAChloride [Moles/Vol]103 mmol/L [id number] [facility] MiamisburgComment on above:Order Comment: No: Do not add to previous drawPerformed By: #### 99012, 76043, 83235 ####[facility] [place] [address], [place] CO2 [Moles/Vol]21 mmol/ZTlkgmz23-02Zmr [facility] Comment on above:Order Comment: No: Do not add to previous drawPerformed By: #### 28020, 04517, 79972 ####[facility] [place] [address], [facility] CENTERCreatinine [Mass/Vol]1.15 mg/dLNormal0.70-1.30The [facility]burgComment on above:Order Comment: No: Do not add to previous drawPerformed By: #### 62371, 06226, 84450 ####[facility] [place] [address], USAGFR/1.73 sq M.predicted among blacks MDRD (S/P/Bld) [Vol rate/Area]mL/min/{1.73_m2}Normal>60 The [facility]burgComment on above:Order Comment: No: Do not add to previous drawResult Comment: Calculation may not be valid for patients over 70 yearsPerformed By: #### 70944, 35316, 43007 ####[facility] [place] [address], USAGFR/1.73 sq M.predicted among non-blacks MDRD (S/P/Bld) [Vol rate/Area]mL/min/{1.73_m2} Normal>60The [facility]burgComment on above:Order Comment: No: Do not add to previous drawResult Comment: Calculation may not be valid for patients over 70 yearsPerformed By: #### 09389, 57336, 58803 ####[facility] [place] [address], USAGlucose [Mass/Vol] 224 mg/iSIvle26-832Xtb [facility]burgComment on above:Order Comment: No: Do not add to previous drawPerformed By: #### 88921, 37792, 64458 ####[facility] [place] [address], [place] Potassium [Moles/Vol]3.9 mmol/LNormal3.5-5.1The [facility]burgComment on above:Order Comment: No: Do not add to previous drawPerformed By: #### 65925, 39073, 71533 ####[facility] [place] [address], USASodium [Moles/Vol]134 mmol/SFav867-165Tzy [facility]burgComment on above:Order Comment: No: Do not add to previous drawPerformed By: #### 80410, 84752, 30054 ####[facility] [place] [address], USAUrea nitrogen [Mass/Vol]22 mg/dLNormal7-25The [facility]burgComment on above:Order Comment: No: Do not add to previous drawPerformed By: #### 10910, 34779, 09114 ####[facility] [address], USACalcium [Mass/Vol]7.7 mg/dLLow8.6-10.3The [facility]burgComment on above:Performed By: #### 15282, 11684, 91743 ####[facility] [place] [address], [place] Chloride [Moles/Vol]105 mmol/FXcxjwt78-756Qru [facility]burgComment on above:Performed By: #### 27779, 27011, 42676 ####[facility] [address], USACO2 [Moles/Vol]24 mmol/HYyuydo94-02Uji [facility]burgComment on above: Performed By: #### 67850, 05126, 91799 ####[facility] [address], USACreatinine [Mass/Vol]0.81 mg/dL Normal0.70-1.30The [facility]burgComment on above:Performed By: #### 14771, 62939, 45679 ####[facility] [place] [address], USAGFR/1.73 sq M.predicted among blacks MDRD (S/P/Bld) [Vol rate/Area]mL/min/{1.73_m2}Normal>60The [facility]burgComment on above:Result Comment: Calculation may not be valid for patients over 70 yearsPerformed By: #### 42880, 79900, 53350 ####[facility] [place] [address], USAGFR/1.73 sq M.predicted among non-blacks MDRD (S/P/Bld) [Vol rate/Area]mL/min/{1.73_m2} Normal>60The [facility]burgComment on above:Result Comment: Calculation may not be valid for patients over 70 yearsPerformed By: #### 43910, 43772, 60536 ####[facility] [place] [address], USAGlucose [Mass/Vol]189 mg/uRSnzq63-680Ski [facility]burgComment on above:Performed By: #### 07009, 45208, 61441 ####[facility] [place] [address], [place] Potassium [Moles/Vol]4.3 mmol/LNormal3.5-5.1The [facility]burgComment on above:Performed By: #### 93356, 36294, 68242 ####[facility] [place] [address], USASodium [Moles/Vol] 133 mmol/RDay425-880Hkq [facility]burgComment on above: Performed By: #### 40571, 80390, 53161 ####[facility] [place] [address], USAUrea nitrogen [Mass/Vol]20 mg/dL Normal7-25The [facility]burgComment on above:Performed By: #### 34109, 14753, 36117 ####[facility] [place] [address], USACalcium [Mass/Vol]8.7 mg/dLNormal8.6-10.3The [facility]burgComment on above:Order Comment: No: Do not add to previous drawPerformed By: #### 51798, 92185, 83191 ####[facility] [place] [address], USAChloride [Moles/Vol]103 mmol/RYsrxpl28-498Hbo [facility]burgComment on above:Order Comment: No: Do not add to previous drawPerformed By: #### 84499, 34252, 50042 ####[facility] [place] [address], [place] CO2 [Moles/Vol]26 mmol/CHvezwg26-15Fns [facility] Comment on above:Order Comment: No: Do not add to previous drawPerformed By: #### 01913, 74490, 13582 ####[facility] [place] [address], USACreatinine [Mass/Vol]0.74 mg/dLNormal0.70-1.30The [facility]Comment on above:Order Comment: No: Do not add to previous drawPerformed By: #### 07201, 92048, 83866 ####[facility] [place] [address], USAGFR/1.73 sq M.predicted among blacks MDRD (S/P/Bld) [Vol rate/Area]mL/min/{1.73_m2}Normal>60 The [facility]burgComment on above:Order Comment: No: Do not add to previous drawResult Comment: Calculation may not be valid for patients over 70 yearsPerformed By: #### 36684, 48430, 53978 ####[facility] [place] [address], USAGFR/1.73 sq M.predicted among non-blacks MDRD (S/P/Bld) [Vol rate/Area]mL/min/{1.73_m2} Normal>60The [facility]burgComment on above:Order Comment: No: Do not add to previous drawResult Comment: Calculation may not be valid for patients over 70 yearsPerformed By: #### 40258, 61899, 26094 ####[facility] [place] [address], USAGlucose [Mass/Vol] 107 mg/jQJvwm90-350Gem [facility]burgComment on above:Order Comment: No: Do not add to previous drawPerformed By: #### 13148, 42649, 15530 ####[facility] [place] [address], [place] Potassium [Moles/Vol]4.1 mmol/LNormal3.5-5.1The [facility]burgComment on above:Order Comment: No: Do not add to previous drawPerformed By: #### 31211, 46906, 90692 ####[facility] [place] [address], USASodium [Moles/Vol]133 mmol/NQdm241-175Fak [facility]burgComment on above:Order Comment: No: Do not add to previous drawPerformed By: #### 50131, 79761, 29267 ####[facility] [place] [address], USAUrea nitrogen [Mass/Vol]19 mg/dLNormal7-25The [facility]Comment on above:Order Comment: No: Do not add to previous drawPerformed By: #### 31061, 29848, 41314 ####[facility] [place] [address], USACBC COMPLETE BLOOD COUNTon 98-09-3845Zzfisppyska distribution width (RBC) [Ratio]14.4 %Enosec39.5-15.0The [facility] Comment on above:Order Comment: No: Do not add to previous drawPerformed By: #### 30293 ####[facility] [place] [address], [facility] CENTERHematocrit (Bld) [Volume fraction]33.4 %Low39.0-50.0The [facility]Comment on above:Order Comment: No: Do not add to previous drawPerformed By: #### 91661 ####[facility] [facility] [address], [facility] CENTERHemoglobin (Bld) [Mass/Vol]10.9 g/dLLow 13.0-17.0The [facility]Comment on above:Order Comment: No: Do not add to previous drawPerformed By: #### 72290 ####[facility] [facility] [address], [facility] CENTERMCH (RBC) [Entitic mass] 30.4 ihJopeiy65.0-33.0The [facility]burgComment on above: Order Comment: No: Do not add to previous drawPerformed By: #### 46442 ####[facility] [facility] [place] [address], [place] MCHC (RBC) [Mass/Vol]32.6 g/lDZrtlgx60.0-35.0The [facility]Comment on above:Order Comment: No: Do not add to previous drawPerformed By: #### 81396 ####[facility] [facility] [place] [address], [facility] CENTERMCV (RBC) [Entitic vol]93.3 aMJnpwyw80.0-98.0The [facility]burgComment on above:Order Comment: No: Do not add to previous drawPerformed By: #### 73289 ####[facility] [facility] [place] [address], USANucleated RBC/100 WBC (Bld) [Ratio]0 %Normal 0-0The [facility]burgComment on above:Order Comment: No: Do not add to previous drawPerformed By: #### 49708 ####[facility] [place] [address], USAPLAT KOL131 10*3/uLNormal 150-400The [facility]Comment on above:Order Comment: No: Do not add to previous drawPerformed By: #### 22230 ####[facility] [place] [address], [facility] CENTERRBC (Bld) [#/Vol]3.58 10*6/uLLow4.20-5.70The [facility]Comment on above:Order Comment: No: Do not add to previous drawPerformed By: #### 20307 ####[facility] [place] [address], [facility] CENTERWBC (Bld) [#/Vol]18.53 10*3/uLHigh4.00-10.60The [facility]Comment on above:Order Comment: No: Do not add to previous drawPerformed By: #### 83215 ####[facility] [place] [address], [place] Erythrocyte distribution width (RBC) [Ratio]14.6 %Xifaig11.5-15.0The [facility]burgComment on above:Performed By: #### 59407 ####[facility] [place] [address], [facility] CENTERHematocrit (Bld) [Volume fraction]35.5 %Low39.0-50.0The [facility] Comment on above:Performed By: #### 04352 ####[facility] [place] [address], USAHemoglobin (Bld) [Mass/Vol]11.5 g/dLLow13.0-17.0The [facility]burgComment on above: Performed By: #### 33941 ####[facility] [place] [address], [facility] CENTERMCH (RBC) [Entitic mass]30.5 ibWcycpg03.0-33.0The [facility]burgComment on above:Performed By: #### 80433 ####[facility] [place] [address].[place] [address], [facility] MCHC (RBC) [Mass/Vol]32.4 g/oJAvfbup76.0-35.0The [facility]burgComment on above:Performed By: #### 35617 ####[address] [place] [address], [facility] CENTERMCV (RBC) [Entitic vol]94.2 fL Dbwvwp37.0-98.0The [facility]burgComment on above:Performed By: #### 27969 ####[facility] [place] [address].[place] [address], [facility] CENTERNucleated RBC/100 WBC (Bld) [Ratio]0 %Normal0-0The [facility]burgComment on above:Performed By: #### 30426 ####[address] [place] [address], USAPLAT COR917 10*3/zKNbppve494-229Byc [facility]burgComment on above: Performed By: #### 69229 ####[facility] [facility] [address], [facility] CENTERRBC (Bld) [#/Vol]3.77 10*6/uLLow4.20-5.70The [facility]burgComment on above:Performed By: #### 51072 ####[address] [place] [address], [facility] WBC (Bld) [#/Vol]14.37 10*3/uLHigh4.00-10.60The [facility]burgComment on above:Performed By: #### 61169 ####[facility] [facility] [address], [facility] CENTERErythrocyte distribution width (RBC) [Ratio]14.7 %Wlohai22.5-15.0The [facility]burgComment on above:Order Comment: No: Do not add to previous drawPerformed By: #### 60796 ####[facility] [facility] [address], [facility] Hematocrit (Bld) [Volume fraction]40.7 %Cpitno61.0-50.0The [facility]burgComment on above:Order Comment: No: Do not add to previous draw Performed By: #### 33631 ####[facility] [place] [address], [facility] CENTERHemoglobin (Bld) [Mass/Vol]13.5 g/kXRgfrcz25.0-17.0The [facility]burgComment on above:Order Comment: No: Do not add to previous drawPerformed By: #### 12762 ####[address] [place] [address], [facility] CENTERMCH (RBC) [Entitic mass]30.5 pg Rodbzn51.0-33.0The [facility]burgComment on above:Order Comment: No: Do not add to previous drawPerformed By: #### 32950 ####[facility] [facility] [address], [facility] CENTERMCHC (RBC) [Mass/Vol]33.2 g/lPXdjqsa85.0-35.0The [facility]burgComment on above:Order Comment: No: Do not add to previous drawPerformed By: #### 87511 ####[facility] [place] [address].[place] [address], [place] MCV (RBC) [Entitic vol]92.1 qQPponbc77.0-98.0The [facility]Comment on above:Order Comment: No: Do not add to previous drawPerformed By: #### 39600 ####[facility] [place] [address], USANucleated RBC/100 WBC (Bld) [Ratio]0 %Normal0-0The [facility]burgComment on above:Order Comment: No: Do not add to previous drawPerformed By: #### 97535 ####[facility] [place] [address], [place]APLAT UDR860 10*3/bTBsvuzt254-272Yfd [facility]Comment on above:Order Comment: No: Do not add to previous drawPerformed By: #### 95954 ####[facility] [place] [address], USARBC (Bld) [#/Vol]4.42 10*6/uL Normal4.20-5.70The [facility]burgComment on above:Order Comment: No: Do not add to previous drawPerformed By: #### 93027 ####[facility] [place] [address], USAWBC (Bld) [#/Vol]7.11 10*3/uLNormal4.00-10.60The [facility] Comment on above:Order Comment: No: Do not add to previous drawPerformed By: #### 21993 ####[facility] [place] [address], USACOOXIMETRYon 61-59-4738TQXP2 %NormalThe [facility]burgComment on above:Performed By: #### 64759 ####[facility] [place] [address], USAMETHB1 %NormalThe [facility]burgComment on above:Performed By: #### 34735 ####[facility] [place] [address], USAOxygen saturation in Blood77.5 %High65.0-75.0The [facility]burgComment on above:Performed By: #### 75291 ####[facility] [place] [address], MHUBAJ07.7 g/dLNormalThe [facility]burgComment on above:Performed By: #### 11046 ####[facility] [place] [address], USAFERRITINon 04-08-2021 Ferritin [Mass/Vol]116 ng/xONojxms56-350Ffj [facility] Comment on above:Performed By: #### 78120, 17049, 25627 ####[facility] [place] [address], USAFIBRINOGENon 04-08-2021 EZAAHXCGMY186 mg/nBNayvtk677-173Zus [facility]burgComment on above:Performed By: #### 17114, 73965, 59797 ####[facility] [place] [address], USALACTATE BLOODon 77-02-3996Vbodbjo [Moles/Vol]3.7 mmol/LHigh.5-2.2The [facility]burgComment on above:Order Comment: No: Do not add to previous drawResult Comment: M- CRITICAL RESULT(S) REVIEWED, CALLED TO AND READ BACK BY Kleber TRAN at 2203.Performed By: #### 83938 ####[facility] [place] [address], USALactate [Moles/Vol]2.5 mmol/LHigh.5-2.2The [facility]burgComment on above:Order Comment: No: Do not add to previous drawPerformed By: #### 78543 ####[facility] [place] [address], USALactate [Moles/Vol]1.0 mmol/L Normal.5-2.2The [facility]burgComment on above:Performed By: #### 52040 ####[facility] [place] [address], USAMAGNESIUM BLOODon 50-40-5537Kdapgnhhl [Mass/Vol]2.3 mg/dLNormal 1.9-2.7The [facility]burgComment on above:Order Comment: No: Do not add to previous drawPerformed By: #### 78066, 35577, 07800 ####[facility] [place] [address], [place] Magnesium [Mass/Vol]1.9 mg/dLNormal1.9-2.7The [facility]burgComment on above:Performed By: #### 79263, 33933, 37828 ####[facility] [place] [address], USAMagnesium [Mass/Vol]2.2 mg/dLNormal1.9-2.7The [facility]burgComment on above:Order Comment: No: Do not add to previous drawPerformed By: #### 80104, 99904, 09044 ####[facility] [place] [address], USAPERFUSION BLOOD PANELon 07-07-7022PBLH EXCESS-3.0 mmol/LLow-2.0-3.0 The [facility]burgComment on above:Performed By: #### 42557 ####[facility] [place] [address], [place] Glucose [Mass/Vol]193 mg/hLFmau73-601Kek [facility] Comment on above:Performed By: #### 28355 ####[facility] [place] [address], [facility] CENTERHematocrit (Bld) [Volume fraction] 36 %Ivc88-44Trg [facility]burgComment on above:Performed By: #### 53907 ####[address] [place] [address], [facility] CENTERHemoglobin (Bld) [Mass/Vol]12.2 g/mYNcfeaq66.0-17.0The [facility]burgComment on above:Performed By: #### 11254 ####[address] [place] [address], [facility] CENTERIONIZED CALCIUM 1.22 mmol/LNormal1.12-1.32The [facility]burgComment on above:Performed By: #### 92026 ####[address] [place] [address], [facility] CENTEROxygen (Bld) [Partial pressure]131.0 mm[Hg] High80.0-105.0The [facility]burgComment on above:Performed By: #### 70634 ####[address] [place] [address], TVBVND207.6 twLnMjnh48.0-45.0The [facility] Comment on above:Performed By: #### 68275 ####[address] [place] [address], USApH (Bld)7.28 [pH]Low7.35-7.45The [facility]burgComment on above:Performed By: #### 84888 ####[address] [place] [address], [facility] Potassium [Moles/Vol]4.4 mmol/LNormal3.5-4.9The [facility]burgComment on above:Performed By: #### 47731 ####[address] [facility] [place] [address], USASodium [Moles/Vol]139 mmol/L Mocseo295-951Qld [facility]burgComment on above:Performed By: #### 02543 ####[facility] [place] [address], [facility]ENTERBASE EXCESS-2.0 mmol/LNormal-2.0-3.0The [facility]burgComment on above:Performed By: #### 87024 ####[facility] [place] [address], [facility] HE[facility] CENTERGlucose [Mass/Vol]156 mg/hIVujn51-583Dmn [facility]burgComment on above:Performed By: #### 32710 ####[facility] [place] [address], [facility] CENTERHematocrit (Bld) [Volume fraction]36 %Hac07-40Lkq [facility]burgComment on above:Performed By: #### 70763 ####[facility] [place] [address], [place] Hemoglobin (Bld) [Mass/Vol]12.2 g/lTLtqmwv00.0-17.0The [facility]burgComment on above:Performed By: #### 87221 ####[facility] [place] [address], USAIONIZED CALCIUM1.17 mmol/LNormal1.12-1.32The [facility]burgComment on above: Performed By: #### 70457 ####[facility] [place] [address], USAOxygen (Bld) [Partial pressure]196.0 mm[Hg]High 80.0-105.0The [facility]burgComment on above:Performed By: #### 18836 ####[facility] [place] [address], WXBWEE425.9 maLyJbxx26.0-45.0The [facility] Comment on above:Performed By: #### 66068 ####[facility] [place] [address], [facility] CENTERpH (Bld)7.33 [pH]Low7.35-7.45The [facility]burgComment on above:Performed By: #### 47744 ####[facility] [place] [address], [facility] Potassium [Moles/Vol]4.5 mmol/LNormal3.5-4.9The [facility] MiamisburgComment on above:Performed By: #### [id number] ####[place] [id number] [place] [address], [facility] CENTERSodium [Moles/Vol]139 mmol/L [id number] [facility]amisburgComment on above:Performed By: #### [id number] ####[facility] [facility] [place] [address], USABASE EXCESS-1.0 mmol/LNormal-2.0-3.0The [facility] MiamisburgComment on above:Performed By: #### [id number] ####[address] [place] [address], [facility] CENTERGlucose [Mass/Vol]133 mg/[id number] [facility]burgComment on above:Performed By: #### [id number] ####[facility] [facility] [address], USAHematocrit (Bld) [Volume fraction]37 %Csd99-14Avs [facility]amisburgComment on above:Performed By: #### [id number] ####[facility] [facility] [address], [facility] Hemoglobin (Bld) [Mass/Vol]12.6 g/dDJrayuv03.0-17.0The [facility]burgComment on above:Performed By: #### [id number] ####[facility] [place] [address], [facility]ALTH CENTERIONIZED CALCIUM1.19 mmol/LNormal1.12-1.32The [facility]amisburgComment on above: Performed By: #### [id number] ####[address] [place] [address], [facility] CENTEROxygen (Bld) [Partial pressure]184.0 mm[Hg]High 80.0-105.0The [facility] MiamisburgComment on above:Performed By: #### [id number] ####[address] [place] [address], XEVXDW465.6 edNrMuco14.0-45.0The [facility] Comment on above:Performed By: #### [id number] ####[address] [place] [address], [facility] CENTERpH (Bld)7.34 [pH]Low7.35-7.45The [facility] MiamisburgComment on above:Performed By: #### [id number] ####[address] [place] [address], [facility] Potassium [Moles/Vol]4.3 mmol/LNormal3.5-4.9The [facility] MiamisburgComment on above:Performed By: #### 27935 ####[address] [place] [address], [facility] CENTERSodium [Moles/Vol]139 mmol/L Ngnjgo268-469Vtb [facility]amisburgComment on above:Performed By: #### 86733 ####[address] [place] [address], [facility]ENTERBASE EXCESS-1.0 mmol/LNormal-2.0-3.0The [facility] MiamisburgComment on above:Performed By: #### 27662 ####[address] [place] [address], [facility] CENTERGlucose [Mass/Vol]118 mg/sVHbss33-403Kvm [facility]amisburgComment on above:Performed By: #### 25983 ####[place] [address] [place] [address], [facility] HE[facility] CENTERHematocrit (Bld) [Volume fraction]39 %Jxasuc01-08Kae [facility]amisburgComment on above:Performed By: #### 93068 ####[place] [address] [place] [address], [facility] Hemoglobin (Bld) [Mass/Vol]13.3 g/pRNjqqxp37.0-17.0The [facility]amisburgComment on above:Performed By: #### 41830 ####[address] [place] [address], [facility] CENTERIONIZED CALCIUM1.17 mmol/LNormal1.12-1.32The [facility] MiamisburgComment on above: Performed By: #### 09837 ####[address] [address], [facility] CENTEROxygen (Bld) [Partial pressure]96.0 mm[Hg]Normal 80.0-105.0The [facility] MiamisburgComment on above:Performed By: #### 68058 ####[address] [place] [address], NTOWVL651.2 saFyHcpvje08.0-45.0The [facility] Comment on above:Performed By: #### 51485 ####[place] [address] [place] [address], [facility] CENTERpH (Bld)7.38 [pH]Normal7.35-7.45 The [facility] MiamisburgComment on above:Performed By: #### 79697 ####[address] [place] [address], [place] Potassium [Moles/Vol]4.3 mmol/LNormal3.5-4.9The [facility]amisburgComment on above:Performed By: #### 00696 ####[facility] [place] [address], USASodium [Moles/Vol]139 mmol/L Yjoyyy722-774Iqu [facility]amisburgComment on above:Performed By: #### 04317 ####[facility] [place] [address], USAPHOSPHORUS BLOODon 77-21-5131Jhgesplfu [Mass/Vol]4.0 mg/dLNormal 2.5-5.0The [facility]burgComment on above:Order Comment: No: Do not add to previous drawPerformed By: #### 36761, 30371, 53163 ####[facility] [facility] [place] [address], [place] Phosphate [Mass/Vol]3.8 mg/dLNormal2.5-5.0The [facility]burgComment on above:Order Comment: No: Do not add to previous drawPerformed By: #### 31923, 47433, 80308 ####[facility] [place] [address], [place] GLUCOSE LABon 61-93-3509Tiicddn [Mass/Vol]252 mg/lFWkgc68-725Tsw [facility]burgComment on above:Performed By: #### 18537 ####[facility] [facility] [place] [address], USAGlucose [Mass/Vol]240 mg/rDZzlp86-742Hwk [facility]burgComment on above:Performed By: #### 61230 ####[facility] [facility] [place] [address], [place] Glucose [Mass/Vol]126 mg/sAGiab95-564Gjh [facility] Comment on above:Performed By: #### 30133 ####[facility] [place] [address], USAGlucose [Mass/Vol]178 mg/dLHigh 70-100The [facility] MiamisburgComment on above:Performed By: #### 53087 ####[facility] [place] [address], USAGlucose [Mass/Vol]195 mg/qXBuep82-934Tge [facility]burgComment on above:Performed By: #### 26275 ####[facility] [place] [address], USAGlucose [Mass/Vol]113 mg/dLHigh 70-100The [facility]amisburgComment on above:Performed By: #### 62910 ####[facility] [place] [address], USAGlucose [Mass/Vol]118 mg/qGQoqt69-088Eiq [facility]amisburgComment on above:Performed By: #### 85688 ####[facility] [place] [address], USAPORTABLE CHEST 1 VIEWon 12-61-5466YAVGQYYK CHEST 1 VIEWNormTriHealth McCullough-Hyde Memorial Hospitale [facility] Comment on above:Order Comment: Check Chest Tube Position, ON ARRIVAL TO CVU PROTHROMBIN TIMEon 23-27-8854DQN Coag (PPP) [Relative time]1.20 {INR}High 0.91-1.16The [facility] MiamisburgComment on above:Order Comment: No: Do not add to previous drawResult Comment: ACCCP RECOMMENDED INR FOR WARFARIN THERAPY CONDITION INRPROPHYLAXIS OF VENOUS THROMBOSIS 2-3(HIGH-RISK SURGERY)TREATMENT OF VENOUS THROMBOSIS 2-3TREATMENT OF PULMONARY EMBOLISM 2-3PREVENTION OF SYSTEMIC EMBOLISM: 2-3 ACUTE MYOCARDIAL INFARCTION TISSUE HEART VALVES VALVULAR HEART DISEASE ATRIAL FIBRILLATION RECURRENT SYSTEMIC EMBOLISMMECHANICAL HEART VALVE 2.5-3.5 FROM: ORAL ANTICOAGULANTS. MECHANISM OF ACTION, CLINICALEFFECTIVENESS, AND OPTIMAL THERAPEU TIC RANGE. [id number];108:231S-246S.Performed By: #### 43478, 47967 ####[facility] [facility] [address], [facility] PT Coag (PPP) [Time]15.2 sHigh12.3-14.8The [facility] Comment on above:Order Comment: No: Do not add to previous drawResult Comment: ALL RESULTS MUST BE INTERPRETED WITH RESPECT TO BLOOD DRAWING ARTIFACTOR DILUTION ERROR OF ANTICOAGULANT AT THE TIME OF SAMPLING.Performed By: #### 64952, 48214 ####[facility] [facility] [address], [facility] HE[facility] CENTERINR Coag (PPP) [Relative time]1.23 {INR}High0.91-1.16The [facility] MiamisburgComment on above:Result Comment: ACCCP RECOMMENDED INR FOR WARFARIN THERAPY CONDITION INRPROPHYLAXIS OF VENOUS THROMBOSIS 2-3(HIGH-RISK SURGERY)TREATMENT OF VENOUS THROMBOSIS 2-3TREATMENT OF PULMONARY EMBOLISM 2-3PREVENTION OF SYSTEMIC EMBOLISM: 2-3 ACUTE MYOCARDIAL INFARCTION TISSUE HEART VALVES VALVULAR HEART DISEASE ATRIAL FIBRILLATION RECURRENT SYSTEMIC EMBOLISMMECHANICAL HEART VALVE 2.5-3.5 FROM: ORAL ANTICOAGULANTS. MECHANISM OF ACTION, CLINICALEFFECTIVENESS, AND OPTIMAL THERAPEU TIC RANGE. [id number];108:231S-246S.Performed By: #### 40845, 65278, 10050 ####[facility] [facility] [address], [facility] PT Coag (PPP) [Time]15.5 sHigh12.3-14.8The [facility] Comment on above:Result Comment: ALL RESULTS MUST BE INTERPRETED WITH RESPECT TO BLOOD DRAWING ARTIFACTOR DILUTION ERROR OF ANTICOAGULANT AT THE TIME OF SAMPLING.Performed By: #### 46792, 39859, 68081 ####[facility] [facility] [place] [address], [facility] CENTERINR Coag (PPP) [Relative time] 1.05 {INR}Normal0.91-1.16The [facility]amisburgComment on above:Order Comment: No: Do not add to previous drawResult Comment: ACCCP RECOMMENDED INR FOR WARFARIN THERAPY CONDITION INRPROPHYLAXIS OF VENOUS THROMBOSIS 2-3(HIGH-RISK SURGERY)TREATMENT OF VENOUS THROMBOSIS 2-3TREATMENT OF PULMONARY EMBOLISM 2-3PREVENTION OF SYSTEMIC EMBOLISM: 2-3 ACUTE MYOCARDIAL INFARCTION TISSUE HEART VALVES VALVULAR HEART DISEASE ATRIAL FIBRILLATION RECURRENT SYSTEMIC EMBOLISMMECHANICAL HEART VALVE 2.5-3.5 FROM: ORAL ANTICOAGULANTS. MECHANISM OF ACTION, CLINICALEFFECTIVENESS, AND OPTIMAL THERAPEU TIC RANGE. [id number];108:231S-246S.Performed By: #### [id number] ####[facility] [place] [address], USAPT Coag (PPP) [Time]13.7 wOchnwx69.3-14.8The [facility]amisburgComment on above:Order Comment: No: Do not add to previous drawResult Comment: ALL RESULTS MUST BE INTERPRETED WITH RESPECT TO BLOOD DRAWING ARTIFACTOR DILUTION ERROR OF ANTICOAGULANT AT THE TIME OF SAMPLING.Performed By: #### 98043 ####[facility] [place] [address], USATROPONIN-Ion 62-69-5902Qgsutnyz I.cardiac [Mass/Vol]0.34 ng/mLCritically high0.00-0.04The [facility]burgComment on above:Order Comment: No: Do not add to previous drawResult Comment: M-TROPONIN INITIAL CRITICAL HIGH; RESPUN AND RETESTEDM-CRITICAL RESULT(S) REVIEWED,CALLED TO AND READ BACK BY Kleber TRAN at 2225.REFERENCE RANGES: 0.00 - 0.04 ng/ml NORMAL 0.05 - 0.50 ng/ml INDETERMINATE > 0.50 ng/ml CONSISTENT WITH AN M.I.Performed By: #### 52472 ####[facility] [place] [address], [place] GLUCOSE LABon 87-27-8989Hkqufuf [Mass/Vol]121 mg/gXRzbc85-581Zjy [facility]burgComment on above:Performed By: #### 02325 ####[facility] [place] [address], [place] Glucose [Mass/Vol]165 mg/eVMzio25-910Njt [facility] Comment on above:Performed By: #### 83048 ####[facility] [place] [address], USAGlucose [Mass/Vol]109 mg/dLHigh 70-100The [facility] MiamisburgComment on above:Performed By: #### 35459 ####[facility] [facility] [address], [facility]ENTERPO SARS COV2 ANTIGEN NEGATIVEon 03-42-2511KAW SARS COV2 ANTIGEN NEG NegativeNormalNEGATIVEThe [facility] MiamisburgComment on above: Result Comment: Negative results from patients with symptom onset beyond [...] presence of clinicalsigns and symptoms consistent with COVID- 19.The Operation Supply Drop COVID-19 Ag Card is a lateral flow immunoassay intended forthe qualitative detection of nucleocapsid protein antigen npxpRPYP-DxF-2 in direct nasal swabs from individuals within [...] of Waiver, Certificate of Compliance, or Certificate ofAccreditation.Performed By: #### 31231 ####[facility] [facility] [address], [facility]ENTERPulmonary Functionon 19-00-9950Cizbwzcly FunctionNormalThGenesis HospitalRB'S 4 UNITSon 20-36-8380VXJUYGTVOG INTERP 1COMPNormUniversity Hospitals Ahuja Medical CenterComment on above:Performed By: #### 64122 ####[facility] [facility] [address], USACROSSMATCH INTERP 2COMP NormalThe [facility] MiamisburgComment on above:Performed By: #### 83688 ####[facility] [place] [address], USACROSSMATCH INTERP 3CSt. [facility] Comment on above:Performed By: #### 02908 ####[facility] [place] [address], USACROSSMATCH INTERP 4CSt. Vincent HospitalComment on above:Performed By: #### 31192 ####[facility] [facility] [address], [facility] PRODUCT CODE [id number]-Hyde Memorial HospitalComment on above:Performed By: #### 01151 ####[facility] [facility] [address], USAPRODUCT CODE [id number]-Hyde Memorial HospitalComment on above:Performed By: #### 83833 ####[facility] [facility] [address], USAPRODUCT CODE 3 [id number] Medical CenterComment on above:Performed By: #### 83567 ####[facility] [facility] [address], [facility] CENTERPRODUCT CODE [id number]-Hyde Memorial Hospital Comment on above:Performed By: #### 00696 ####[facility] [facility] [address], USAPRODUCT STATUS 1RAvita Health SystemComment on above:Result Comment: Result changed by IF on 04/08/2021 12:37. The previous value was XM.Result changed by IF on 04/08/2021 16:53. The previous value was IS.Result changed by IF on 04/11/2021 11:14. The previous value was XM.Performed By: #### 52045 ####[facility] [place] [address].[place] [address], [facility] PRODUCT STATUS 2RAvita Health SystemComment on above: Result Comment: Result changed by IF on 04/08/2021 12:37. The previous value was XM.Result changed by IF on 04/08/2021 16:53. The previous value was IS.Result changed by IF on 04/11/2021 11:14. The previous value was XM.Performed By: #### 59444 ####[facility] [place] [address], USAPRODUCT STATUS 3RAvita Health SystemCombronson battle creek hospital on above:Result Comment: Result changed by IF on 04/08/2021 12:37. The previous value was XM.Result changed by IF on 04/08/2021 16:53. The previous value was IS.Result changed by IF on 04/11/2021 11:14. The previous value was XM.Performed By: #### 12452 ####[facility] [place] [address], USAPRODUCT STATUS 4RAvita Health SystemCombronson battle creek hospital on above:Result Comment: Result changed by IF on 04/08/2021 12:37. The previous value was XM.Result changed by IF on 04/08/2021 16:53. The previous value was IS.Result changed by IF on 04/11/2021 11:14. The previous value was XM.Performed By: #### 81890 ####[facility] [place] [address], USAUNIT ABO 1ONoUC Medical CenterComment on above:Performed By: #### 30631 ####[facility] [place] [address], USAUNIT ABO 2O NormalSalem Regional Medical CenterComment on above:Performed By: #### 54187 ####[facility] [place] [address], USAUNIT ABO 3ONoUC Medical CenterComment on above:Performed By: #### 18118 ####[facility] [facility] [place] [address], USAUNIT ABO 4ONoUC Medical CenterComment on above:Performed By: #### 39455 ####[facility] [facility] [place] [address], USAUNIT ID [id number] NormalThe [facility] MiamisburgComment on above:Performed By: #### 57362 ####[facility] [facility] [place] [address], USAUNIT ID [id number] [facility] Comment on above:Performed By: #### 45358 ####[facility] [facility] [place] [address], USAUNIT ID [id number] Regional Medical CenterComment on above:Performed By: #### 73675 ####[facility] [facility] [place] [address], [place] UNIT ID [id number] Medical CenterComment on above:Performed By: #### 28295 ####[facility] [facility] [place] [address], USAUNIT RH 1PositiveNoUC Medical CenterComment on above:Performed By: #### 51694 ####[facility] [facility] [place] [address], USAUNIT RH 2Positive NormalThe [facility] MiamisburgComment on above:Performed By: #### 96984 ####[facility] [facility] [place] [address], USAUNIT RH 3PositiveNormUniversity Hospitals Ahuja Medical CenterComment on above:Performed By: #### 83020 ####[facility] [place] [address] [place] [address], USAUNIT RH 4PositiveMcCullough-Hyde Memorial HospitalComment on above:Performed By: #### 67965 ####[facility] [facility] [place] [address], USATYPE AND SCREENon 56-41-5041WBN INTERPRETATIONONoUC Medical Center Comment on above:Performed By: #### 81602 ####[facility] [place] [address], USARH INTERPRETATIONPositiveMcCullough-Hyde Memorial HospitalComment on above:Performed By: #### 30751 ####[facility] [place] [address], [place] *MRSA/MSSA DNA NASALon 04-06-2021*MRSA/MSSA DNA NASALClinical Report: (D) Specimen: NASAL SWAB Collected: 04/06/2021 12:43 Status: Final Last Updated: 04/06/2021 16:01 MSSA DNA (Final) Negative MRSA DNA (Final) NegativeMcCullough-Hyde Memorial HospitalComment on above:Performed By: #### 96561 ####[facility] [place] [address], USABASIC METABOLIC PANELon 07-84-5586Xtdohmf [Mass/Vol]8.9 mg/dL Normal8.6-10.3The [facility]amisburgComment on above:Order Comment: No: Do not add to previous drawPerformed By: #### 97758, 39901 ####[facility] [place] [address], [place] Chloride [Moles/Vol]103 mmol/VJmedeg94-336Mlx [facility]burgComment on above:Order Comment: No: Do not add to previous drawPerformed By: #### 65412, 61009 ####[facility] [place] [address], USACO2 [Moles/Vol]26 mmol/QPjucok89-43Fhq [facility]burgComment on above:Order Comment: No: Do not add to previous drawPerformed By: #### 75681, 16883 ####[facility] [place] [address], USACreatinine [Mass/Vol]0.78 mg/dLNormal 0.70-1.30The [facility]burgComment on above:Order Comment: No: Do not add to previous drawPerformed By: #### 85545, 30103 ####[facility] [place] [address], USAGFR/1.73 sq M.predicted among blacks MDRD (S/P/Bld) [Vol rate/Area]mL/min/{1.73_m2}Normal>60 The [facility] MiamisburgComment on above:Order Comment: No: Do not add to previous drawResult Comment: Calculation may not be valid for patients over 70 yearsPerformed By: #### 39459, 51090 ####[facility] [place] [address], USAGFR/1.73 sq M.predicted among non-blacks MDRD (S/P/Bld) [Vol rate/Area]mL/min/{1.73_m2}Normal>60The [facility]burgComment on above:Order Comment: No: Do not add to previous drawResult Comment: Calculation may not be valid for patients over 70 yearsPerformed By: #### 73863, 79616 ####[facility] [place] [address], USAGlucose [Mass/Vol]101 mg/dLHigh 70-100The [facility]burgComment on above:Order Comment: No: Do not add to previous drawPerformed By: #### 19436, 18506 ####[facility] [place] [address], USAPotassium [Moles/Vol]4.1 mmol/LNormal3.5-5.1The [facility]burgComment on above:Order Comment: No: Do not add to previous drawPerformed By: #### 47014, 55770 ####[facility] [place] [address], [facility] CENTERSodium [Moles/Vol]134 mmol/MInx911-294Tyz [facility]burgComment on above:Order Comment: No: Do not add to previous draw Performed By: #### 82559, 48264 ####[facility] [place] [address], USAUrea nitrogen [Mass/Vol]20 mg/dLNormal7-25The [facility]burgComment on above:Order Comment: No: Do not add to previous drawPerformed By: #### 30112, 39048 ####[facility] [place] [address], [facility] CENTERCBC COMPLETE BLOOD COUNTon 36-57-7853Ueiznvtnspr distribution width (RBC) [Ratio]15.3 %High11.5-15.0The [facility] MiamisburgComment on above:Order Comment: No: Do not add to previous drawPerformed By: #### 12231 ####[address] [place] [address], [facility] HEALTH CENTERHematocrit (Bld) [Volume fraction] 43.0 %Vogyao37.0-50.0The [facility]amisburgComment on above: Order Comment: No: Do not add to previous drawPerformed By: #### 80967 ####[facility] [address].[place] [address], [facility] Hemoglobin (Bld) [Mass/Vol]14.3 g/xKZadejj17.0-17.0The [facility]burgComment on above:Order Comment: No: Do not add to previous draw Performed By: #### 84962 ####[facility] [place] [address].[place] [id number], [facility] (RBC) [Entitic mass]30.6 eqLcejhw71.0-33.0The [facility]burgComment on above:Order Comment: No: Do not add to previous drawPerformed By: #### 79468 ####[facility] [place] [address], [facility]HC (RBC) [Mass/Vol]33.3 g/dL Vaekoz35.0-35.0The [facility]amisburgComment on above:Order Comment: No: Do not add to previous drawPerformed By: #### 52871 ####[facility] [place] [address], [facility] (RBC) [Entitic vol]92.1 bQFrvwqu47.0-98.0The [facility] Comment on above:Order Comment: No: Do not add to previous drawPerformed By: #### 24962 ####[facility] [place] [address], [facility] CENTERNucleated RBC/100 WBC (Bld) [Ratio]0 %Normal0-0The [facility] MiamisburgComment on above:Order Comment: No: Do not add to previous drawPerformed By: #### 76408 ####[facility] [place] [address], [facility]LE HEALTH CENTERPLAT SRK005 10*3/hWPyifzj419-921Dui [facility]burgComment on above:Order Comment: No: Do not add to previous drawPerformed By: #### 65534 ####[facility] [place] [address], [facility] HEALTH CENTERRBC (Bld) [#/Vol]4.67 10*6/uL Normal4.20-5.70The [facility] MiamisburgComment on above:Order Comment: No: Do not add to previous drawPerformed By: #### 34322 ####[facility] [place] [address], USAWBC (Bld) [#/Vol]6.86 10*3/uLNormal4.00-10.60The [facility] Comment on above:Order Comment: No: Do not add to previous drawPerformed By: #### 39707 ####[facility] [place] [address], USAMAGNESIUM BLOODon 79-05-9348Vbgxmyluw [Mass/Vol]2.0 mg/dLNormal1.9-2.7 The [facility]Comment on above:Order Comment: No: Do not add to previous drawPerformed By: #### [id number], [id number] ####[facility] [address], [place]AP[place] GLUCOSE LABon [id number] [Mass/Vol]118 mg/xURifb09-679Zxn [facility]burgComment on above:Performed By: #### [id number] ####[facility] [place] [address], USAGlucose [Mass/Vol]108 mg/dLHigh 70-100The [facility]burgComment on above:Performed By: #### [id number] ####[facility] [place] [address], USAGlucose [Mass/Vol]114 mg/oVBpud38-894Iil [facility]burgComment on above:Performed By: #### [id number] ####[facility] [place] [address], USAGlucose [Mass/Vol]126 mg/dLHigh 70-100The [facility]burgComment on above:Performed By: #### [id number] ####[facility] [place] [address], USAURINALYSIS REFLEXon [id number] (U)CLEARNormalCLEARThe [facility]burgComment on above:Order Comment: No: Do not add to previous drawCriteria for reflexing a culture was not met. Please call the lab [phone] within 24 hours of collection time if culture is neededPerformed By: #### [id number] ####[facility] [facility] [place] [address], USABilirubin Ql (U)NegativeNormalNEGATIVEThe [facility] MiamisburgComment on above:Order Comment: No: Do not add to previous drawCriteria for reflexing a culture was not met. Please call the lab [id number] within 24 hours of collection time if culture is neededPerformed By: #### [id number] ####[facility] [place] [address], [place] Color (U)YELLOWNormalYELLOWThe [facility] MiamisburgComment on above:Order Comment: No: Do not add to previous drawCriteria for reflexing a culture was not met. Please call the lab [phone] within 24 hours of collection time if culture is neededPerformed By: #### [id number] ####[facility] [place] [address], USAGlucose Ql (U)Negative NormalNEGATIVEThe [facility] MiamisburgComment on above:Order Comment: No: Do not add to previous drawCriteria for reflexing a culture was not met. Please call the lab [id number] within 24 hours of collection time if culture is neededPerformed By: #### [id number] ####[facility] [place] [address], USAHemoglobin Ql (U)NegativeNormalNEGATIVEThe [facility] MiamisburgComment on above:Order Comment: No: Do not add to previous drawCriteria for reflexing a culture was not met. Please call the lab [id number] within 24 hours of collection time if culture is neededPerformed By: #### [id number] ####[facility] [place] [address], USAKETONENegativeNormalNEGATIVEThe [facility] MiamisburgComment on above:Order Comment: No: Do not add to previous drawCriteria for reflexing a culture was not met. Please call the lab [id number] within 24 hours of collection time if culture is neededPerformed By: #### [id number] ####[facility] [facility].[place] [id number], USALEUK JESS NegativeNormalNEGATIVEThe [facility] MiamisburgComment on above: Order Comment: No: Do not add to previous drawCriteria for reflexing a culture was not met. Please call the lab [id number] within 24 hours of collection time if culture is neededPerformed By: #### [id number] ####[facility] [facility] [address], USAMICRO NOT DONENormalThe [facility] MiamisburgComment on above:Order Comment: No: Do not add to previous drawCriteria for reflexing a culture was not met. Please call the lab [id number] within 24 hours of collection time if culture is neededResult Comment: Microscopics not performed on urines withnegative chemical reactions unless requested in original orderPerformed By: #### [id number] ####[facility] [facility] [place] [address], USANitrite Ql (U)Negative NormalNEGATIVEThe [facility] MiamisburgComment on above:Order Comment: No: Do not add to previous drawCriteria for reflexing a culture was not met. Please call the lab [id number] within 24 hours of collection time if culture is neededPerformed By: #### [id number] ####[facility] [facility] [place] [address], USApH (U)6.0 [pH]Normal5.0-8.0The [facility] MiamisburgComment on above:Order Comment: No: Do not add to previous drawCriteria for reflexing a culture was not met. Please call the lab [id number] within 24 hours of collection time if culture is neededPerformed By: #### [id number] ####[facility] Protein Ql (U)NegativeNormalNEGATIVEThe [facility] Comment on above:Order Comment: No: Do not add to previous drawCriteria for reflexing a culture was not met. Please call the lab [id number] within 24 hours of collection time if culture is neededPerformed By: #### [id number] ####[facility] [place] [address], [facility] CENTERSPEC GRAV1.019 Normal1.015-1.020The [facility] MiamisburgComment on above:Order Comment: No: Do not add to previous drawCriteria for reflexing a culture was not met. Please call the lab [id number] within 24 hours of collection time if culture is neededPerformed By: #### [id number] ####[facility] Vital Signs Date TimeVital SignValuePerforming UhpewmthpAekbuuhj97-68-3005 10:05-0400Body zvprbu336.8 Duniaisa Samanthahholz ARTIST SCIENTIFIC-C Work Phone: [phone] [place], [place] 6281210-13-2025 10:05-0400 Body mass index (BMI) [Ratio]45.5 kg/m2Lisa Aichholz ARTIST SCIENTIFIC-C Work Phone: [phone] [place], [place] 6281210-13-2025 10:05-0400 Body sbohkjqojpy29.5 [degF]Teressa Samanthahholz ARTIST SCIENTIFIC-C Work Phone: [phone] [place], [place] 6281210-13-2025 10:05-0400 Body mheitc393.9 kgLisa Aichholz ARTIST SCIENTIFIC-C Work Phone: [phone] [place], [place] 6281210-13-2025 10:05-0400 Diastolic blood jiardflw01 mm[Hg]Teressa Samanthahholz ARTIST SCIENTIFIC-C Work Phone: [phone] [place], [place] 6281210-13-2025 10:05-0400 Heart rate74 /minLisa Aichholz ARTIST SCIENTIFIC-C Work Phone: [phone]10-13-2025 10:05-0400 Respiratory rate22 /minLisa Aichholz ARTIST SCIENTIFIC-C Work Phone: [phone]10-13-2025 10:05-0400 SaO2% (BldA) [Mass fraction]94 %Teressa Aichholz ARTIST SCIENTIFIC-C Work Phone: [phone]10-13-2025 10:05-0400 Systolic blood zobigdfu97 mm[Hg]Teressa Aichholz ARTIST SCIENTIFIC-C Work Phone: [phone] [place], [place] 3848810-08-2025 11:52-0400 Body nrqdah887.8 cmLisa Aichholz ARTIST SCIENTIFIC-C Work Phone: [phone] [place], [place] 3848810-08-2025 11:52-0400 Body mass index (BMI) [Ratio]45.9 kg/m2Lisa Aichholz ARTIST SCIENTIFIC-C Work Phone: [phone]10-08-2025 11:52-0400 Body wlckwjtujxt46.4 [degF]Teressa Aichholz ARTIST SCIENTIFIC-C Work Phone: [phone]10-08-2025 11:52-0400 Body ajgmwi695.14 kgLisa Aichholz ARTIST SCIENTIFIC-C Work Phone: [phone]10-08-2025 11:52-0400 Diastolic blood rmtuqshx49 mm[Hg]Teressa Aichholz ARTIST SCIENTIFIC-C Work Phone: [phone]10-08-2025 11:52-0400 Heart rate66 /minLisa Aichholz ARTIST SCIENTIFIC-C Work Phone: [phone]10-08-2025 11:52-0400 SaO2% (BldA) [Mass fraction]99 %Teressa Aichholz ARTIST SCIENTIFIC-C Work Phone: [phone] [place], [place] 3848810-08-2025 11:52-0400 Systolic blood hfbuilhv383 mm[Hg]Teressa Singhmp ARTIST SCIENTIFIC-C Work Phone: [phone]07-29-2025 15:10-0400 Body mass index (BMI) [Ratio]46.28 kg/m2Lisa Adolphholz ARTIST SCIENTIFIC Work Phone: [facility] SystemAdpejmtpwk91-67-5304 15:10-0400Body temperature 98.1 [degF]Teressa Adolphcristinz ARTIST SCIENTIFIC Work Phone: [facility] SystemIiwmhcvupg92-05-6848 15:10-0400Body .42 kgLisa Adolphholz ARTIST SCIENTIFIC Work Phone: [facility] SystemRvxomhpcrt43-51-3199 15:10-0400Diastolic blood vqgduutd79 mm[Hg]Teressa Adolphholz ARTIST SCIENTIFIC Work Phone: [facility] SystemLbofvztdju59-42-6161 15:10-0400Heart rate59 /min Teressa Adolphholz ARTIST SCIENTIFIC Work Phone: [facility] SystemDzjvshljsf54-59-3665 15:10-0400Respiratory rate24 /minLisa Farfanholz ARTIST SCIENTIFIC Work Phone: [facility] SystemAlqexcysmu14-66-8561 15:10-4908DmV1% (BldA) [Mass fraction]94 %Teressa Adolphcristinz ARTIST SCIENTIFIC Work Phone: [facility] SystemHcrdcwzlxe61-23-9754 15:10-0400Systolic blood mm[Hg]Teressa Adolphholz ARTIST SCIENTIFIC Work Phone: [facility] SystemLmihvzhnnl87-77-6500 16:59-0400Body mass index (BMI) [Ratio]45.75 kg/m2Lisa Samanthahholz ARTIST SCIENTIFIC Work Phone: [facility] SystemJsfphtyvjr45-10-3754 16:59-0400Body temperature 97.81 [degF]Teressa Samanthahholz ARTIST SCIENTIFIC Work Phone: [facility] SystemTspliniffz40-67-9350 16:59-0400Body pttrdo488.69 kgLisa Adolphholz ARTIST SCIENTIFIC Work Phone: [facility] SystemVhwssqgcyd12-72-2142 16:59-0400Diastolic blood bnpuupdv85 mm[Hg]Teressa Frankz ARTIST SCIENTIFIC Work Phone: [facility] SystemDwzsmolouq35-69-1028 16:59-0400Heart rate59 /min Teressa Adolphholz ARTIST SCIENTIFIC Work Phone: [facility] SystemVgbhcgdoor23-40-8922 16:59-0400Respiratory rate26 /minLisa Adolphholz ARTIST SCIENTIFIC Work Phone: [facility] SystemHnosipudgi36-31-9472 16:59-5016QaQ3% (BldA) [Mass fraction]94 %Teressa Mariez ARTIST SCIENTIFIC Work Phone: [facility] SystemVrtydjnprq90-91-5867 16:59-0400Systolic blood wjujolmn464 mm[Hg]Teressa Adolphholz ARTIST SCIENTIFIC Work Phone: [facility] SystemHhqeqazvwr68-29-4829 14:06-0500Body qarysp815.1 cmLisa Adolphholz ARTIST SCIENTIFIC Work Phone: [facility] SystemNbozkpdans26-86-3277 14:06-0500Body mass index (BMI) [Ratio]45.83 kg/m2Lisa Adolphholz ARTIST SCIENTIFIC Work Phone: [facility] SystemWazorqulhc72-37-3795 14:06-0500Body temperature 97.81 [degF]Teressa Adolphholz ARTIST SCIENTIFIC Work Phone: [facility] SystemVvgzddytrz71-28-0375 14:06-0500Body vkyque941.97 kgLisa Adolphholz ARTIST SCIENTIFIC Work Phone: [facility] SystemEuxhqxehpi49-16-6467 14:06-0500Diastolic blood mm[Hg]Teressa Adolphholz ARTIST SCIENTIFIC Work Phone: [facility] SystemNbdplhzqzl90-42-9399 14:06-0500Heart rate83 /min Teressa Adolphholz ARTIST SCIENTIFIC Work Phone: [facility] SystemCbfogmloje38-88-9143 14:06-0500Respiratory rate24 /minLisa Adolphholz ARTIST SCIENTIFIC Work Phone: [facility] SystemIzlcrtrxgs85-18-7553 14:06-3788NfW8% (BldA) [Mass fraction]92 %Teressa Frankz ARTIST SCIENTIFIC Work Phone: [facility] SystemKhtzkhaccn09-73-9561 14:06-0500Systolic blood aabqqlfp381 mm[Hg]Teressa Adolphholz ARTIST SCIENTIFIC Work Phone: [facility] SystemZvhopgqpui66-49-6063 15:17-0400Body iclnhy135.1 cmLisa Adolphholz ARTIST SCIENTIFIC Work Phone: [facility] SystemTrmvmhwrfi12-39-5074 15:17-0400Body mass index (BMI) [Ratio]45.52 kg/m2Lisa Adolphholz ARTIST SCIENTIFIC Work Phone: [facility] SystemWcabcitzkn93-56-5524 15:17-0400Body temperature 98.49 [degF]Teressa Frankz ARTIST SCIENTIFIC Work Phone: [facility] SystemBuueylivtr01-23-0780 15:17-0400Body bjzodo296.97 kgLisa Adolphholz ARTIST SCIENTIFIC Work Phone: [facility] SystemRahwwirtmx31-97-5821 15:17-0400Diastolic blood mlxpuabk91 mm[Hg]Teressa Adolphholz ARTIST SCIENTIFIC Work Phone: [facility] SystemRwvobjnqcl07-36-3891 15:17-0400Heart rate62 /min Teressa Adolphholz ARTIST SCIENTIFIC Work Phone: [facility] SystemNrumreddmh42-70-1989 15:17-0400Respiratory rate18 /minLisa Adolphholz ARTIST SCIENTIFIC Work Phone: [facility] SystemSjacmxqlah08-39-1489 15:17-5285CfK7% (BldA) [Mass fraction]95 %Teressa Adolphholz ARTIST SCIENTIFIC Work Phone: [facility] SystemRaddehdwsh70-99-9561 15:17-0400Systolic blood reexbpuq253 mm[Hg]Teressa Samanthahholz ARTIST SCIENTIFIC Work Phone: [facility] Encounters Encounter DateEncounter TypeCare ProviderFacilityStart: 06-05-2025 End: 18-90-4509hgnszmaifeRwrb J Aichholz ARTIST SCIENTIFIC-C Work Phone: [facility] Work Phone: Start: 06-05-2025 End: 61-22-9643Jttvjea encounter procedureTeressa Sierra ARTIST SCIENTIFIC-C-[facility] Work Phone: Start: 05-31-2025 End: 63-39-9613Lswsnzc encounter procedureBiju Monroe MD-Ul[facility] VascularStart: 05-31-2025 End: 19-32-2026ovneatiiotAaaf J Aichholz ARTIST SCIENTIFIC-C Work Phone: [facility] Work Phone: Start: 05-31-2025 End: 66-75-1077nykeasnhrmTnpb J Aichholz ARTIST SCIENTIFIC-C Work Phone: [facility] Work Phone: Start: 05-31-2025 End: 21-51-7080Rwaqqfp encounter procedureBiju Monroe MD-[facility] Work Phone: Start: 92-42-0658Zvq-patient / Non-visitAries Perez DO-[facility] Work Phone: Start: 65-98-7808Vze-patient / Non-visitKing Aragon MD-[facility] Work Phone: Start: 36-44-6975Ozg-patient / Non-visitKing Aragon MD-[facility] Work Phone: Start: 41-15-1480Lsb-patient / Non-visitKing Aragon MD-[facility] Work Phone: Start: 05-23-2025 End: 88-45-2612vnzthmlunhAgwwo [facility] Work Phone: Start: 05-23-2025 End: 63-28-3826Uufjwsqe ReferredKing Aragon MD-[facility] Start: 96-26-9051Lms-patient / Non-visitJefry Ramon DO-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 ; Bilateral lower extremity edema; Type 2 diabetes mellitus with stage 3 chronic kidney disease, without long-term current use of insulin, unspecified whether stage 3a or 3b CKD ([facility]); Morbid (severe) obesity due to excess calories ([facility]-HCC); MGUS (monoclonal gammopathy of unknown significance); Atherosclerosis of hughes coronary artery 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 ; Mixed hyperlipidemia ; 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 Start: 03-21-2025 End: 26-76-6674cqgfagauobGZYO AICHHOLZNot AvailableStart: 03-21-2025 End: 02-38-8193Dxwejq flowsheetTeressa Sierra ARTIST SCIENTIFIC Work Phone: [facility] FMStart: 03-21-2025 End: 12-23-8257Qvxlzu flowsheetTeressa Sierra ARTIST SCIENTIFIC Work Phone: noms [facility] FMStart: 02-21-2025 End: 45-77-9379Lvyqhyjmi Result EncounterGeneric External Data ProviderNOMS External Department UnsolicitedStart: 02-21-2025 End: 53-57-9548Fnabdssts Result EncounterGeneric External Data ProviderNOMS External Department UnsolicitedStart: 02-08-2025 End: 77-32-4018Iyghli flowsWei Malik MD Work Phone: NODK S[facility] DERMStart: 02-08-2025 End: 65-46-8970Peowrq Bev Malik MD Work Phone: NOZA SWS DERMStart: 02-08-2025 End: 20-53-8438Hvfcoog encounter procedureEmgermain Malik MD Work Phone: NOGR SWS DERMComment on above:Neoplasm of unspecified behavior of bone, soft tissue, and skin (Primary Dx)Start: 02-08-2025 End: 67-94-5246svjvctbbfxOAMOP A PETITTINot AvailableStart: 01-23-2025 End: 77-49-5833ecoctaupxzBDKNMD [facility] Start: 12-30-2024 End: 90-08-4118Enoyxlqfo Result EncounterGeneric External Data ProviderNOMS External Department UnsolicitedStart: 12-30-2024 End: 61-34-7402Riatblbgc Result EncounterGeneric External Data ProviderNOMS External Department UnsolicitedStart: 12-28-2024 End: 36-21-1245Rihgwe flowsheetRylee Northkaiserm PA Work Phone: NOSV SWS DERMStart: 12-28-2024 End: 74-33-2951Ucrhat flowsheetRylee Northeim PA Work Phone: NODA SWS DERMStart: 12-28-2024 End: 30-97-6797Mfvlkz outpatient visit 10 minutesRylee Northeim PA Work Phone: NOER SWS DERMComment on above:Epidermal inclusion cyst (Primary Dx); Neoplasm of unspecified behavior of bone, soft tissue, and skinStart: 12-28-2024 End: 83-53-4005raexundfbsGKAYY NORTHEIMNot AvailableStart: 12-19-2024 End: 69-04-6360Owyuyvg encounter procedureTeressa Sierra NP Work Phone: noms CWM FMComment on above:Encounter for subsequent annual wellness visit (AWV) in Medicare patient (Primary Dx); Chronic obstructive pulmonary disease, unspecified COPD type ([facility]); 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 ([facility]); Essential hypertension; Type 2 diabetes mellitus with stage 3 chronic kidney disease, without long-term current use of insulin, unspecified whether stage 3a or 3b CKD (HCC) ([facility]); Neoplasm of uncertain behavior; Body mass index (BMI) 45.0-49.9, adult ([facility]); Morbid (severe) obesity due to excess calories ([facility])Start: 12-19-2024 End: 57-40-0687ObkpbuOfzv Aichholz ARTIST SCIENTIFIC Work Phone: noms CWM FMComment on above:Bilateral primary osteoarthritis of knee; 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 ([facility])Start: 10-11-2024 End: 78-53-1083Snreqnump Result EncounterGeneric External Data ProviderNOMS External Department UnsolicitedStart: 10-11-2024 End: 13-06-8250Xtwhykhyt Result EncounterGeneric External Data ProviderNOMS External Department UnsolicitedStart: 10-04-2024 End: 40-20-3526CdedlcWlyt Aichholz ARTIST SCIENTIFIC Work Phone: noms CWM FMComment on above:Type 2 diabetes mellitus without complications ([facility])Start: 10-03-2024 End: 54-75-2050udhoqvytkpNLLZWA MOUKARBThe [facility] Start: 09-27-2024 End: 88-22-0352Wzpoob [place] Sierra ARTIST SCIENTIFIC Work Phone: noms CWM FMStart: 09-27-2024 End: 06-86-0657Sgkewt [place] Sierra ARTIST SCIENTIFIC Work Phone: noms CWM FMStart: 09-27-2024 End: 87-26-6353Nrxwom outpatient visit [facility]Te[facility] ARTIST SCIENTIFIC Work Phone: [facility] CWM FMComment on above:Obstructive sleep apnea syndrome (Primary Dx); Type 2 diabetes mellitus with diabetic chronic kidney disease ([facility]); 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 (CODE) ([facility]); Morbid (severe) obesity due to excess calories ([facility]); Body mass index (BMI) 45.0-49.9, adult ([facility]); Type 2 diabetes mellitus with diabetic peripheral angiopathy without gangrene ([facility]); Other ventricular tachycardia ([facility]); Chronic obstructive pulmonary disease, unspecified ([facility]); Chronic diastolic (congestive) heart failure ([facility]); Atherosclerosis of hughes coronary artery 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 ([facility]); Essential hypertension; Chronic kidney disease, stage 3a ([facility]) ([facility]); Bilateral lower extremity edema; Stasis edema with ulcer of both lower extremities ([facility]); Mixed hyperlipidemia ([facility]); Stasis dermatitis 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 hypertension ([facility]); 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 ([facility])Start: 09-27-2024 End: 12-83-8199iqaixxtrdvKCOI AICHHOLZNot AvailableStart: 09-10-2024 End: 02-22-1199TmuimlWhuv Aichholz ARTIST SCIENTIFIC Work Phone: noms CWM FMComment on above:Localized edemaStart: 09-08-2024 End: 65-43-6463MewmaeEnny Aichholz ARTIST SCIENTIFIC Work Phone: noms CWM FMComment on above:Type 2 diabetes mellitus without complication, without long-term current use of insulin ([facility])Start: 08-04-2024 End: 64-91-6224Plvgtxoud Result EncounterTeressa Sierra ARTIST SCIENTIFIC Work Phone: noms External Department UnsolicitedStart: 08-04-2024 End: 32-89-2736Xhzmbocql Result EncounterTeressa Sierra ARTIST SCIENTIFIC Work Phone: noms External Department UnsolicitedStart: 07-13-2024 End: 17-57-2649NmaxlsDoyv Aichholz ARTIST SCIENTIFIC Work Phone: noms CWM FMComment on above:Anemia, unspecifiedStart: 06-20-2024 End: 63-37-0356Nvtzbc OnlyTeressa Farfanholz ARTIST SCIENTIFIC Work Phone: NOID CWM FMComment on above:Chronic kidney disease, stage 3a (HCC) (CMS/HCC) (Primary Dx)Start: 06-20-2024 End: 89-72-0721EowmnlOear Aichholz ARTIST SCIENTIFIC Work Phone: NOLU CWM FMComment on above:Type 2 diabetes mellitus without complications ([facility])Start: 06-17-2024 End: 27-17-0348SpbnjdKcip Aichholz ARTIST SCIENTIFIC Work Phone: noms CWM FMComment on above:Bilateral primary osteoarthritis of knee; 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 ([facility]/HCC)Start: 06-16-2024 End: 45-25-3299Enatfnfzo Result EncounterTeressa Mariez ARTIST SCIENTIFIC Work Phone: noms External Department UnsolicitedStart: 06-16-2024 End: 44-32-6458Yifcshemd Result EncounterLisa Farfanholz ARTIST SCIENTIFIC Work Phone: noms External Department UnsolicitedStart: 06-13-2024 End: 98-36-2253BzwzypIjmt Aichholz ARTIST SCIENTIFIC Work Phone: noms CWM FMComment on above: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 (CM S/HCC) (Primary Dx); Atherosclerosis of hughes coronary artery 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 (CMS/HCC); Mixed hyperlipidemia ([facility])Start: 06-01-2024 End: 49-18-5619Qkczcy outpatient visit 25 minutesLisa Farfanangel ARTIST SCIENTIFIC Work Phone: NOXW CWM FMComment on above:Type 2 diabetes mellitus without complication, without long-term current use of insulin ([facility]) (P rimary Dx); Chronic kidney disease, stage 3a (HCC) (CMS/HCC); Mixed hyperlipidemia (CMS/HCC); 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 (CMS/HCC); Essential hypertension; Prostate cancer screening; Obstructive sleep apnea syndrome; Chronic obstructive pulmonary disease, unspecified COPD type (CMS/HCC); Venous stasis of both lower extremities; Morbid (severe) obesity due to excess calories (CMS/HCC); Body mass index (BMI) 45.0-49.9, adult (CMS/HCC)Start: 06-01-2024 End: 94-32-2947mivslibflxROFS SOLANGEot AvailableStart: 06-01-2024 End: 23-29-6183Enhzcc flowsheetTeressa Sierra ARTIST SCIENTIFIC Work Phone: noms [facility] FMStart: 06-01-2024 End: 39-72-0012Swctoh flowsheetTeressa Sierra ARTIST SCIENTIFIC Work Phone: noms [facility] FMStart: 03-09-2024 End: 01-23-2973dvwavomcogNUXOUNIAvita Health System Ontario Hospitaltart: 92-94-1362Ajbhqho encounter procedureTeressa Sierra ARTIST SCIENTIFIC Work Phone: noms HealthcareStart: 09-03-2022 End: 36-33-0180abgdcuscqiQnhwaw Kelley Other [facility] [employer] Other Start: 72-87-9641Qqxbor outpatient new 45 minutes [facility] Dockery OrthopedicsStart: 08-18-2022 End: 42-22-9826Zwxndwbzlt and management of inpatientDR MAL HOUSEFacility:H1 Start: 08-05-2022 End: 48-51-4104xwjwgmnfdfRG CATINA MOUKARBELFacility:U8Tuxlw: 08-04-2022 End: 79-43-0028hhcoqsexxmXI CATINA MOUKARBELFacility:X7Yrofb: 07-14-2022 End: 01-51-6714xieghxxabkKV CATINA CHRISTIANSONUKARBELFacility:V1Wkczh: 05-08-2022 End: 50-99-5930cztzevpapmYG CATINA PATELRBELFacility:V5Yxfyy: 05-05-2022 End: 82-00-8095fgwkqhnveqPM CATINA PATELRBELFacility:W9Popmx: 04-14-2022 End: 30-73-1398dydyilcdliIUSGKLS TUCKERFacility:P1Cgfaz: 77-88-6266qsvkgtvggi ARIELLA TUCKERFacility:A7Ohivl: 05-15-2021 End: 06-74-3276Gimaijfcbs and management of inpatientCHARLES HOUSEFacility:[facility] Procedures DateProcedureProcedure DetailPerforming ClinicianStart: 37-48-9956Zthiu brachial pressure indexLisa Sierra ARTIST SCIENTIFIC-C Work Phone: Start: 41-41-8578Ysdptqkd identified in Blood by CultureLisa Sierra ARTIST SCIENTIFIC-C Work Phone: Start: 47-57-6001Xgyuscmwtf glycosylated t5kIwru Mariela ARTIST SCIENTIFIC Work Phone: Start: 77-33-8811WB ECHO DOPPLER COMPLETEGeneric External Data ProviderStart: 11-54-8221YPU BASIC METABOLIC PANELGeneric External Data ProviderStart: 47-65-8871NIHM EXCISIONAdarsh Malik MD Work Phone: Start: 60-56-0549UIYF REPAIRAdarsh Malik MD Work Phone: Start: 35-80-6947FNJ BASIC METABOLIC PANELGeneric External Data ProviderStart: 00-08-1215QAN PRO BNPGeneric External Data Provider Start: 45-78-7006YDDG / NAIL BIOPSYRylee Loreto FISH Work Phone: Start: 76-99-3690Zbdxgvevxl glycosylated m0xFkrq Mariela ARTIST SCIENTIFIC Work Phone: Start: 03-84-1358JLF BASIC METABOLIC PANELGeneric External Data ProviderStart: 17-40-0735ZPY CBC WITH AUTO DIFFLisa Mariela ARTIST SCIENTIFIC Work Phone: Start: 00-06-3269DUT CBC WITH AUTO DIFFLisa Sierra ARTIST SCIENTIFIC Work Phone: Start: 07-03-2021 End: 65-14-5888Lfwryay of coronary artery bypass graftingHistory of coronary artery bypass surgeryTeressa Sierra ARTIST SCIENTIFIC Work Phone: Start: 46-64-7045Pmatknqi screenCHARLES HOUSEComment on above:Performed By: #### [id number] ####[facility] [facility] [place] [address], USAStart: 56-76-3312LELYNIHO OF STERNUM, OPEN APPROACHANDREW KRIEGELStart: 97-65-1192LUYQCXGL LEFT THORAX MUSCLE WITH SKIN, SUBCU, OPEN APPROACHANDREW KRIEGELStart: 56-84-5672NHNOEUFD RIGHT THORAX MUSCLE WITH SKIN, SUBCU, OPEN APPROACHANDREW KRIEGELStart: 83-51-3671INUUNOAMV NONAUT RED BLOOD CELLS IN PERIPH VEIN, PERCSAQIB MASROORStart: 28-60-5390MAWCQW PRESSURE DRESSING ON CHEST WALLANDREW KRIEGELStart: 78-92-2956Cnhvkzyl screen MAL HOUSEComment on above:Performed By: #### [id number] ####[place] [address] [facility] [place] [address], USAStart: 25-93-4618VQHTHBXR OF CHEST SKIN, EXTERNAL APPROACHANDREW KRIEGELStart: 85-88-3040FYNACAPFIJM VENTILATION, LESS THAN 24 CONSECUTIVE HOURSSAQIB MASROORStart: 05-15-2021 Antibody screenCHARLES HOUSEComment on above:Performed By: #### [id number] ####[address] [place] [address], [facility] Start: 12-81-1172Agjwyenb screenCHARLES HOUSEComment on above:Performed By: #### [id number] ####[place] [address] [facility] [address], [facility] CENTERHistory of appendectomyS/P appendectomyLisa Sierra ARTIST SCIENTIFIC-C Work Phone: History of cholecystectomyS/P cholecystectomyLisa Mariela ARTIST SCIENTIFIC-C Work Phone: Plan of Treatment DateCare ActivityDetailAuthorStart: 12-25-2025 End: 70-82-6946Lymzfqd encounter abluiqfit99/04/2026 4:30 PM EDT Office Visit [facility] [address] [place] [address] Teressa Sierra NP [address] [place] [address] [facility] CW FMStart: 04-28-2026Medicare Annual Wellness (AWV) Medicare Annual Wellness (AWV)[facility] HealthcareStart: 96-58-0439Qvymnlulvm A1c measurementDiabetes: Hemoglobin Z9FJGNM HealthcareStart: 87-60-8603Ddmhubbu screeningDiabetes: Retinopathy ScreeningNODE HealthcareStart: 08-10-2025 End: 06-72-5585Ddagvih encounter procedureNOMS SWS DERMStart: 06-22-2025 End: 15-12-5809Bbmwvme encounter abuxjokmr36/30/2025 2:00 PM EDT Office Visit [facility] [address] [place] [address] Teressa Sierra NP [address] [place] [address] [facility] FMStart: 22-85-1338Yvyzkvirxe A1c measurement Diabetes: Hemoglobin X4BBJGE HealthcareStart: 10-67-2604Hfsjr screening for proteinDiabetes: Urine Protein ScreeningNODE HealthcareStart: 82-66-3646Qzfcy brachial pressure indexMadison Healthtart: 05-23-2025 Bacteria identified in Blood by CultureBlood CultureMadison Healthtart: 08-53-2822KvvswtjkaMadison Healthtart: 03-21-2025 End: 61-67-5202Lprvfgq encounter procedureNOMS CWM FMComment on above: Obstructive sleep apnea syndrome (Primary Dx); Chronic obstructive pulmonary disease, unspecified COPD type (HCC); Essential hypertension; Chronic diastolic (congestive) heart failure (HCC); 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 ; Bilateral lower extremity edema; Type 2 diabetes mellitus with stage 3 chronic kidney disease, without long-term current use of insulin, unspecified whether stage 3a or 3b CKD ([facility]); Morbid (severe) obesity due to excess calories ([facility]); MGUS (monoclonal gammopathy of unknown significance)Start: 02-08-2025 End: 51-05-6014Rywzwvp encounter fsojtjtfr00/18/2025 1:00 PM EDT Office Visit [facility] [address] [place] [address] Adarsh Malik MD [address] [place] [address] ArrivedNOMS [facility] DERMComment on above:ArrivedStart: 12-28-2024 End: 32-84-0186Ptccyrs encounter /07/2025 10:30 AM EDT Office Visit [facility] [address] [place] [address] Татьяна Dangelo PA [address] [place] [address] Neoplasm of uncertain behaviorNOMS [facility] DERMComment on above:Neoplasm of uncertain behaviorStart: 12-19-2024 End: 11-29-9382Hnyqdvt encounter rvevtmanw32/28/2025 4:30 PM EDT Office Visit [facility] [address] [place] [phone] Teressa Sierra NP [address] [place] [address] [facility] CWYenny FMStart: 88-70-0836Zuvaghpemv A1c measurement Diabetes: Hemoglobin J9EZCER HealthcareStart: 04-22-2025Medicare Annual Wellness (AWV)Medicare Annual Wellness (AWV)[facility] HealthcareStart: 09-27-2024 End: 93-18-5007Ccflten encounter jizsoyxpf52/04/2025 2:00 PM EST Office Visit [facility] [address] [place] [address] Teressa Sierra, CUAUHTEMOC [address] [place] [address] Obstructive sleep apnea syndrome (Primary Dx); Type [...] diastolic (congestive) heart failure (CMS/HCC); Atherosclerosis of hughes coronary artery 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 (CMS/HCC); Essential hypertension; Chronic kidney disease, stage 3a (HCC) (CMS/HCC); Bilateral lower extremity edema; Stasis edema with ulcer of both lower extremities (CMS/HCC); Mixed hyperlipidemia (CMS/HCC)[facility] FMComment on above:Obstructive sleep apnea syndrome (Primary Dx); Type 2 [...] diastolic (congestive) heart failure (CMS/HCC); Atherosclerosis of hughes coronary artery 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 (CMS/HCC); Essential hypertension; Chronic kidney disease, stage 3a (HCC) (CMS/HCC); Bilateral lower extremity edema; Stasis edema with ulcer of both lower extremities (CMS/HCC); Mixed hyperlipidemia (CMS/HCC)Start: 09-14-2024 End: 58-69-7255Ueyuouj encounter hyjwuwtes68/22/2025 2:00 PM EST [facility] [address] [place] [address] Teressa Sierra, CUAUHTEMOC [address] [place] [address] [facility] FMStart: 31-29-2544Jvobknfisaqs Vaccine: 65+ Years (1 of 2 - PCV)Pneumococcal Vaccine: 65+ Years (1 of 2 - PCV)[facility] HealthcareComment on above:Postponed from 1950 (Patient Refused)Start: 09-05-2024 End: 28-11-1890Txvprhc encounter muzcjcezb47/13/2025 2:00 PM EST Office Visit [facility] [address] [place] [address] Teressa Sierra, CUAUHTEMOC [address] [place] [address] [facility] FMStart: 07-21-2024 End: 33-20-2248CVZ W Auto Differential panel - BloodCBC and differential Lab Routine Chronic kidney disease, stage 3a (HCC) (CMS/HCC) Expected: 07/21/2024 (Approximate), Expires: 06/20/2025[facility] Work Phone: Comment on above:Expected: 07/21/2024 (Approximate), Expires: 06/20/2025Start: 07-21-2024 End: 54-77-2588Wbnaxltfclcrx metabolic 2000 panel - Serum or PlasmaComprehensive metabolic panel Lab Routine Chronic kidney disease, stage 3a (HCC) (CMS/HCC) Expected: 07/21/2024 (Approximate), Expires: 06/20/2025[facility] HealthcareComment on above:Expected: 07/21/2024 (Approximate), Expires: 06/20/2025Start: 06-17-2024 Hemoglobin A1c measurementDiabetes: Hemoglobin Q8CXMKUDeaconess Incarnate Word Health SystemStart: 06-01-2024 End: 61-53-2097Wupquhm encounter bplqcgjci51/09/2024 3:00 PM EDT Office Visit [facility] [address] [place] [address] Teressa Sierra, ARTIST SCIENTIFIC [address] [place] [address] Chronic kidney disease, stage 3a (HCC) (CMS/HCC) (Primary Dx); Type 2 diabetes mellitus without complication, without long-term current use of insulin (CMS/HCC); Mixed hyperlipidemia (CMS/HCC); 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 (CMS/HCC); Essential hypertension; Prostate cancer screeningNORTHEAST ALABAMA REGIONAL MEDICAL CENTERComment on above:Chronic kidney disease, stage 3a (HCC) (CMS/HCC) (Primary Dx); Type 2 diabetes mellitus without complication, without long-term current use of insulin (CMS/HCC); Mixed hyperlipidemia (CMS/HCC); 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 (CMS/HCC); Essential hypertension; Prostate cancer screeningStart: 06-01-2024 End: 70-65-0520KXG W Auto Differential panel - BloodCBC and differential Lab Routine Chronic kidney disease, stage 3a (HCC) (CMS/HCC) Expected: 06/01/2024 (Approximate), Expires: 06/01/2025[facility] Work Phone: Comment on above:Expected: 06/01/2024 (Approximate), Expires: 06/01/2025Start: 06-01-2024 End: 18-54-5048Pftuyctkvboff metabolic 2000 panel - Serum or PlasmaComprehensive metabolic panel Lab Routine Type 2 diabetes mellitus without complication, without long-term current use of insulin (CMS/HCC) Mixed hyperlipidemia (CMS/HCC) Essential hypertension Expected: 06/01/2024 (Approximate), Expires: 06/01/2025[facility] HealthcareComment on above:Expected: 06/01/2024 (Approximate), Expires: 06/01/2025Start: 06-01-2024 End: 84-72-9833Zgdyskmcoy A1c/Hemoglobin.total in BloodHemoglobin A1c Lab Routine Type 2 diabetes mellitus without complication, without long-term current use of insulin (CMS/HCC) Expected: 06/01/2024 (Approximate), Expires: 06/01/2025 [facility] HealthcareComment on above:Expected: 06/01/2024 (Approximate), Expires: 06/01/2025Start: 06-01-2024 End: 41-78-6063Yhkjh 1996 panel - Serum or PlasmaLipid panel Lab Routine Type 2 diabetes mellitus without complication, without long-term current use of insulin (CMS/HCC) Mixed hyperlipidemia (CMS/HCC) Expected: 06/01/2024 (Approximate), Expires: 06/01/2025[facility] HealthcareComment on above:Expected: 06/01/2024 (Approximate), Expires: 06/01/2025Start: 06-01-2024 End: 15-25-8965Bdheyvlhpajh/Creatinine panel in random UrineMicroalbumin / creatinine, urine ratio Lab Routine Type 2 diabetes mellitus without complication, without long-term current use of insulin ([facility]) Essential hypertension Expected: 06/01/2024 (Approximate), Expires: 06/01/2025[facility] HealthcareComment on above:Expected: 06/01/2024 (Approximate), Expires: 06/01/2025Start: 06-01-2024 End: 18-65-0406Yvhbqtyb specific Ag [Mass/volume] in Serum or PlasmaPSA Lab Routine Prostate cancer screening Expected: 06/01/2024 (Approximate), Expires: 06/01/2025[facility] HealthcareComment on above:Expected: 06/01/2024 (Approximate), Expires: 06/01/2025Start: 06-01-2024 End: 40-94-3039Akjrpvorup complete panel - UrineUrinalysis with reflex microscopic (clean catch) Lab Routine Type 2 diabetes mellitus without compli cation, without long-term current use of insulin ([facility]/HCC) Essential hypertension Expected: 06/01/2024 (Approximate), Expires: 06/01/2025[facility] HealthcareComment on above:Expected: 06/01/2024 (Approximate), Expires: 06/01/2025Start: 87-14-3346Vpyuy screening for proteinDiabetes: Urine Protein ScreeningNODE HealthcareStart: 62-83-5195Nawtnowgeidv Vaccine: 65+ Years (1 of 2 - PCV)Pneumococcal Vaccine: 65+ Years (1 of 2 - PCV)[facility] HealthcareStart: 38-24-2335Qipkybtizxxw Vaccine: 65+ Years (1 of 2 - PCV)Pneumococcal Vaccine: 65+ Years (1 of 2 - PCV)[facility] HealthcareDermatopathology examDermatopathology exam Pathology and Cytology Timed Neoplasm of unspecified behavior of bone, soft tissue, and skin Release Upon Ordering for 1 Occurrences starting 12/28/2024 [facility] Healthcare Work Phone: comment on above:Release Upon Ordering for 1 Occurrences starting 12/28/2024Dermatopathology examDermatopathology exam Pathology and Cytology Timed Neoplasm of unspecified behavior of bone, soft ti ssue, and skin Release Upon Ordering for 1 Occurrences starting 02/08/2025[facility] Work Phone: comcpsa on above:Release Upon Ordering for 1 Occurrences starting 02/08/2025US Lower extremity [facility] - [facility] Payers DatePayer CategoryPayerPolicy [id number] 2024Medicare (Managed Care)[id number] [employer] [id number] 2023-Present [address] [place] [id number] 2009MedicareMEDICARE [id number] Health [id number]-[id number] 2.16.840.1.541819.3.57[id number] 2.16.840.1.431058.3.579.[id number] 2.16.840.1.276742.3.579.2.42694-47-3867Sqzhxqu8769347 2.16.840.1.716347.3.579.2.64411-53-5066Rjmbpnx5431589 2.16.840.1.349628.3.579.2.29607-12-1643Elgwqgk5499550 2.16.840.1.565675.3.57[id number] 2.16.840.1.849504.3.57[id number] 2.16.840.1.050258.3.579.2.43561-00-8557Onnvljf6860859 2.16.840.1.436732.3.579.[id number] 2.16.840.1.063823.3.579.2.10853-55-4978Lzxrwwc91370516 2.16.840.1.341647.3.57[id number] 2..840.1.559917.3.579.2.540106-83-2485Oyxdiyx2320497 2.16.840.1.242247.3.579.2.020142-14-6758Lwkynvx5454893 2..840.1.697418.3.579.2.077098-30-9854Biyfhph3648193 2.16.840.1.037219.3.579.2.922647-04-8881Sgkqcqx8047466 2.16.840.1.619744.3.57[id number] Health InsuranceFormerly [facility] [id number] 2.16.840.1.8[id number] 2.840.1.255295.3.579.2.531 Social History DateTypeDetailFacilityStart: 12-14-2023 End: 45-59-1703Nmk Assigned At BirthNODE HealthcareStart: 09-07-2023 End: 94-75-9246Swzncny smoking status NHISEx-smokerNOMS HealthcareHistory of tobacco useCurrent smokerNOMS HealthcareHistory of tobacco useCigarette Smoker N[facility] HealthcareStart: 09-07-2023 End: 19-92-0266Cyecwlivwx smoked current (pack per day) - Reported0.8NOMS HealthcareStart: 09-07-2023 End: 31-14-9335Fcjyqbz use and exposureUser of smokeless tobaccoNOMS Healthcare History of tobacco useChews TobaccoNOMS HealthcareStart: 03-14-2024 End: 86-44-5265Earevglin beverage intakeCurrent drinker of alcohol (finding)NOM HealthcareWithin the last year, have you been afraid of your partner or ex-partner?NoNOMS HealthcareDo you belong to any clubs or organizations such as lutheran groups, unions, fraternal or athletic groups, or school groups?YesNOMS HealthcareAre you now , , , , never or living with a partner?DivorcedNOMS HealthcareHow often to you have a drink containing alcohol?4 or more times a weekNOMS HealthcareHow many standard drinks containing alcohol do you have on a typical day?5 or 6NOMS HealthcareHow often do you have 6 or more drinks on 1 occasion?Daily or almost dailyNOMS Healthcare How hard is it for you to pay for the very basics like food, housing, medical care, and heatingNot very hardNOMS HealthcareDo you feel stress - tense, restless, nervous, or anxious, or unable to sleep at night because yourmind is troubled all the time - these days [OSQ]Only a littleNOMS Healthcare(I/We) worried whether (my/our) food would run out before (I/we) got money to buy more. Never trueNOMS HealthcareIn the past 12 months, has lack of transportation kept you from medical appointments or from getting medications?NoNOMS Healthcare Start: 99-54-0377Zqvedou Comment3-4 drinks 4 or more times a weekNOMS Healthcare Start: 30-06-2749Dht assigned at birthNot on fileNODE HealthcareStart: 47-47-7902Rrzedis smoking status NHISSmokes tobacco daily (finding)[facility] HealthexMale (finding)[facility] Healthtart: 86-17-8286Bvu Assigned At [facility] Medical Equipment Procedure CodeEquipment CodeEquipment Original TextEquipment IdentifierDates [id number], [id number]: 06-21-2024 End: 55-31-5520Xadew Sugar Diagnostic (True Metrix Glucose Test Strip) strip Start: 06-05-2025 Functional Status WfcfMolvrvcrkoBmolbaXpahjxys40-09-4597Cwfrpme Health Questionnaire 2 item (PHQ- 2) [Reported][facility] Health SystemN[facility] Healthcare Clinical Notes 10-11-2020 to 05-31-2025 Note Date & LirhZzysBalurcrc21-27-[address] [facility] [address] [place] [address] Ultrasound Report Signed Patient: Arianne Mcqueen MR#: [id number] : 1945 Acct:[id number] Age/Sex: 80 / M ADM Date: 5 Loc: [facility] Room: Type: [facility] Attending Dr: Biju Monroe MD Ordering Provider: [...] the dorsalis pedis artery with ankle-brachial index of1.14 1.14 . Pressures at the left ankle are 147 using the posterior tibial artery, and 150 with ankle-brachial index of 1.07 1.09 . Wave forms by plethysmography are normal. US/US ankle/arm indices IMPRESSION: NO HEMODYNAMICALLY SIGNIFICANT PERIPHERAL VASCULAR OCCLUSIVE DISEASE AT REST IN EITHER LOWER EXTREMITY. Impression dictated by: Biju Monroe MD,FACS,FSVS 05/31/2025 1:58 PM Dictation Location: [place] [address] Tech: Swetha Kaur Transcribed By: MICAH 05/31/25 1358 Dictated By: Biju Monroe MD 05/31/25 1357 Signed By: 05/31/25 1358 [facility] Work Phone: 1(387) 122-988410-08-2025 Evaluation note* Diagnosis Onset Date Resolution Status Admit Date Venous stasis of both lower extremities chronicOctober 2024 10:30am [facility] Work Phone: 1(305) 274-875910-08-2025 Evaluation note* Diagnosis Onset Date Resolution Status Admit Date Venous stasis of both lower extremities chronicOctober 2024 10:30amDiastolic dysfunction with chronic heart failure acuteOctober 2024 9:43amMorbid obesity due to excess caloriesacuteOctober 2024 9:43amType 2 diabetes mellitus, without long-term current use of insulinacuteOctober 2024 9:43amNicotine dependencechronicOctober 2024 9:43amWound cellulitisresolvedOctober 2024 9:43am [facility] Work Phone: 1(352) 889-706507-29-2025 History of Present illness Narrative* JAY EDWARDS - 03/21/2025 3:00 PM EDT Both legs are wrapped-wound nurses come 2x a week to do dressings, they were there yesterday. Right hip pain- limping and had a hard time stepping on scale Pt would like to discuss getting him a new inhaler having troubles breathing with the weather. He sees a new hitcher in [place] in May. * Teressa Sierra NP - 03/21/2025 3:00 PM EDT Images from the original note were not included. Arianne Mcqueen is a 79 y.o. male presents with chief complaint of Diabetes HPI: Here for recheck: Was under the care for dr mayers, getting a new hitcher, appt with dr wayne osei in [place], right now only using albuterol Was unable [...] provides significant improvement. Hypertensive end-organ damage includes CAD/OK and heart failure. There is no history [...] in a year I did contact the [facility] Sleep lab ext [phone] to find out about scheduling the patient to see about an updated PAP machine: voicemail left at 16:20 on 09/27/24 Chronic obstructive pulmonary disease, unspecified (HCC) Current meds: trelegy inhaler and albuterol inhaler Follows with pulmonology Dr Riana Melchor 100 inhalers: #4 lot 4B2M, exp 03/18 Relevant Medications Morsixprbie-Pxjolvwmp-Upcjfh (Trelegy Ellipta) 100-62.5-25 MCG/ACT aerosol powder CAD [...] diastolic (congestive) heart failure (HCC) Follows with [facility] Current meds: asa, statin, b fitz, imdur, aldactone, amlodipine ECHO 02/21/25: EF 74%, bilat atrial enlargement: right mild, left mod. No acute valve issues, mild elevated right sided pressures at 39 MGUS (monoclonal gammopathy of unknown significance) Atherosclerosis of hughes coronary artery 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 Relevant Medications atorvastatin (Lipitor) 40 MG tablet Morbid (severe) obesity due to excess calories ([facility]) Discussed with patient their BMI [...] Other Visit Diagnoses 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 Relevant Medications carvedilol (Coreg) 12.5 MG tablet * Teressa Sierra NP - 03/21/2025 7:15 AM EDTAssociated Problem(s): Morbid (severe) obesity due to excess calories ([facility]-HCC) Discussed with patient their BMI (actual, [...] diastolic (congestive) heart failure (HCC) Follows with [facility] Current meds: asa, statin, b [...] bilateral lower extremities with pain Continue with [facility] Vein and Body * Teressa Sierra [...] in a year I did contact the [facility] Sleep lab ext [phone] to find out about scheduling the patient to see about an updated PAP machine: voicemail left at 16:20 on 09/27/24 documented in this encounterDeaconess Incarnate Word Health SystemFuyohulocw75-38-2745 History of Present illness Narrative* eC Luna MA - 02/08/2025 1:00 PM EDT [...] SOFT TISSUE, AND SKIN Right Anterior Neck [place]ap[place] macule at biopsy site Skin excision Lesion [...] Neoplasm Check Margins: Yes Previous accession number: [id number] Follow up: 4-6 months, FBSE documented in this encounterDeaconess Incarnate Word Health SystemGzwvfbquka74-11-0122 NoteUT Cardiology [facility] Subjective Arianne Mcqueen is a [...] both knees Papillomatosis Sleep apnea Morbid obesity ([facility]/HCC) Venous stasis ulcer of right lower extremity ([facility]) Wound cellulitis Diabetes mellitus, type II ([facility]) long-term (current) use of inhaled steroids Ulcer of lower extremity ([facility]) Aortic ectasia, unspecified site Body mass index (BMI) 45.0-49.9, adult ([facility]) Chronic kidney disease, stage 3a ([facility]) Type 2 diabetes mellitus with diabetic chronic kidney disease ([facility]) Type 2 diabetes mellitus with diabetic peripheral angiopathy without gangrene ([facility]) 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 His initial investigation was negative. 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 Findings: Lesion (right chin/neck area: [id number], color variation, w some dk black/brown, no [...] pulmonology Dr Riana ZELAYA (coronary artery disease) ([facility]) Continue current meds/dose Essential hypertension (Chronic) Please [...] Morbid (severe) obesity due to excess calories ([facility]) Discussed with patient their BMI (actual, verses recommended). We have also discussed lifestyle modifications: attempts to perform physical activity as chronic conditions allow, also to monitor dietary intake: increasing protein/fruits/veggies and lowering carb intake (unless contraindicated). Limit sodas, juices, and sugary drinks. Activity difficult d/t multiple co morbidities Body mass index (BMI) 45.0-49.9, adult ([facility]) Type 2 diabetes mellitus with diabetic chronic kidney disease ([facility]) Check blood sugars daily, notify [...] diabetes mellitus with diabetic chronic kidney disease ([facility]) Check blood sugars daily, notify [...] mellitus with diabetic peripheral angiopathy without gangrene ([facility]) Check blood sugars daily, notify [...] AM EDTAssociated Problem(s): CAD (coronary artery disease) ([facility]) Continue current meds/dose * Teressa Sierra NP - 12/19/2024 7:40 AM EDTAssociated Problem(s): Chronic obstructive pulmonary disease, unspecified Current meds: trelegy inhaler and albuterol inhaler Follows with pulmonology Dr Mayers documented in this encounterDeaconess Incarnate Word Health [id number] Instructions* Patient Instructions* Teressa Sierra NP - 12/19/2024 4:30 PM EDT Referral to Dermatology: [facility] in [place], they should call you No medication dose changes A1c was good 5.9% no changes in diabetes meds documented in this encounterDeaconess Incarnate Word Health [id number] NoteUT Cardiology - [facility] Subjective Arianne Mcqueen is [...] coronary artery bypass surgery Nonsustained ventricular tachycardia ([facility]/HCC) Syncope and collapse Wound of sternal region Chronic diastolic congestive heart failure ([facility]) COVID-19 Hyperglycemia Metabolic syndrome MGUS (monoclonal gammopathy of unknown significance) Pericardial effusion Pneumonia, bacterial Solitary pulmonary nodule Arthritis of right hip Bilateral lower extremity edema Constipation COPD (chronic obstructive pulmonary disease) ([facility]) Encounter for subsequent annual wellness visit (AWV) in Medicare patient Hearing decreased Hypercholesterolemia Hyperpigmentation Iron deficiency Lymphedema Lymphorrhea Myocardial infarction ([facility]/HCC) Nicotine dependence Osteoarthritis of both knees Papillomatosis Sleep apnea Morbid obesity ([facility]/HCC) Venous stasis ulcer of right lower extremity ([facility]/HCC) Wound cellulitis Diabetes mellitus, type II ([facility]/HCC) 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 Ulcer of lower extremity ([facility]/HCC) Aortic ectasia, unspecified site ([facility]/HCC) Body mass index (BMI) 45.0-49.9, adult ([facility]) Chronic kidney disease, stage 3a (CMS/HCC) Type 2 diabetes mellitus with diabetic chronic kidney disease ([facility]/HCC) Type 2 diabetes mellitus with diabetic peripheral angiopathy without gangrene ([facility]/HCC) 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 His initial investigation was negative. He [...] In August 2021 he was admitted to [facility] and then transferred to [facility] due to COVID infection and [...] not revascularize right coronary (more content not included)...[facility] 09-27-2024 History of Present illness Narrative* Teressa Sierra NP - 09/27/2024 4:23 PM ESTAssociated Problem(s): Stasis dermatitis 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 hypertension (CMS/HCC) He has 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 He does not see a agricultural plow operator.Eye exam is not current. Hypertension This [...] (KEFLEX) 500 mg, 2 times daily Drug [place] Unilet Lancets 33G misc 1 each, Other, [...] Diagnosis Date Anemia CAD (coronary artery disease) ([facility]) Constipation COPD (chronic obstructive pulmonary disease) ([facility]) Diabetes mellitus, type II ([facility]) Hearing decreased Heart disease Hip pain, right Hypercholesterolemia ([facility]) Hypertension ([facility]) Iron deficiency Myocardial infarction ([facility]) Osteoarthritis of both knees, unspecified osteoarthritis type [...] diastolic (congestive) heart failure (CMS/HCC) Follows with [facility] Current meds: asa, statin, b fitz, imdur, aldactone, amlodipine Atherosclerosis of hughes coronary artery 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 (CMS/HCC) Current meds: asa, statin, b fitz, imdur, aldactone, Cardiology: [facility] Pat Morbid (severe) obesity due to excess calories (CMS/[facility]) Discussed with patient their BMI (actual, verses recommended). We have also discussed lifestyle modifications: attempts to perform physical activity as chronic conditions allow, also to monitor dietary intake: increasing protein/fruits/veggies and lowering carb intake (unless contraindicated). Limit sodas, juices, and sugary drinks. 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 (CODE) ([facility]) Mixed hyperlipidemia (CMS/HCC) Continue statin Check labs yearly and prn dose chagnes Type 2 diabetes mellitus with diabetic chronic kidney disease ([facility]) Check blood sugars daily, notify [...] edema with ulcer of both lower extremities ([facility]/HCC) Diuretics, elevation, compression * Teressa Sierra NP [...] diabetes mellitus with diabetic chronic kidney disease ([facility]/HCC) Check blood sugars daily, notify if [...] edema with ulcer of both lower extremities ([facility]/HCC) Diuretics, elevation, compression * Teressa Sierra NP [...] 7:12 AM ESTAssociated Problem(s): Other ventricular tachycardia ([facility]/HCC) Noted on holter in 2020 Cont [...] ESTAssociated Problem(s): Chronic diastolic (congestive) heart failure ([facility]) Follows with [facility] Current meds: asa, statin, b fitz, imdur, aldactone, amlodipine * Teressa Sierra NP - 09/27/2024 7:11 AM ESTAssociated Problem(s): Atherosclerosis of hughes coronary artery 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 pect kim ([facility]) Current meds: asa, statin, b fitz, imdur, aldactone, Cardiology: [facility] [place] * Teressa Sierra NP - 09/27/2024 7:10 AM ESTAssociated Problem(s): Chronic obstructive pulmonary disease, unspecified ([facility]) Current meds: trelegy inhaler and [...] etc: Doctor that manages your JOSUE: Dr mAado, has not seen in a year I did contact the [facility] Sleep lab ext [phone] to find out about scheduling the patient to see about an updated PAP machine: voicemail left at 16:20 on 09/27/24 documented in this [facility]02-04-2025 Instructions* Patient Instructions* Teressa Sierra NP - 09/27/2024 2:00 PM EST Sleep apnea: I will call [facility] to see about getting you into see Dr Amaod Wounds: continue with wound care and home health documented in this [facility]10-09-2024 History of Present illness Narrative* Teressa Sierra NP - 06/01/2024 5:00 PM EDTAssociated Problem(s): Diabetes mellitus, type II ([facility]) Cannot afford ozempic, although his [...] PM EDTAssociated Problem(s): CAD (coronary artery disease) ([facility]) Continue current meds/dose * Teressa Sierra NP - 06/01/2024 4:59 PM EDTAssociated Problem(s): Essential hypertension At goal no dose changes * Teressa Sierra NP - 06/01/2024 4:58 PM EDTAssociated Problem(s): COPD (chronic obstructive pulmonary disease) ([facility]) Continue with dr mayers Needs a refill of trelegy , he needs to contact them * Teressa Sierra NP - 06/01/2024 4:58 PM EDTAssociated Problem(s): Sleep apnea Non compliant with PAP use, machine is broke , difficulty finding DME who takes his insurance I did leave a VM on Sleep lab [facility] regarding this for them to assist * JAY EDWARDS - 06/01/2024 3:00 PM EDT Pt is seeing a college specialist for his legs. Pt had a fasting BS of 130 Pt would like a refill on his trelegy ellipta He does not see dr mayers til next year * Teressa Sierra NP - 06/01/2024 3:00 PM EDT Images from [...] no compliance problems. Hypertensive end-organ damage includes CAD/OK and PVD. Diabetes He presents for his [...] being taken. He does not see a agricultural plow operator.Eye exam is current. SUBJECTIVE: MEDICATIONS: Current [...] Diagnosis Date Anemia CAD (coronary artery disease) ([facility]/HCC) Constipation COPD (chronic obstructive pulmonary disease) ([facility]) Diabetes mellitus, type II (CMS/HCC) Hearing decreased Heart disease Hip pain, right Hypercholesterolemia (CMS/HCC) Hypertension (CMS/HCC) Iron deficiency Myocardial infarction ([facility]) Osteoarthritis of both knees, unspecified osteoarthritis type [...] to assist COPD (chronic obstructive pulmonary disease) ([facility]) Continue with dr mayers Needs a refill of trelegy , he needs to contact them CAD (coronary artery disease) (CMS/HCC) Continue current meds/dose Diabetes mellitus, type II (CMS/HCC) - Primary Cannot afford ozempic, although his [...] screening Relevant Orders PSA documented in this encounterDeaconess Incarnate Word Health [id number] NoteCardiovascular Medicine [place] [facility] SUBJECTIVE Chief Complaint Patient presents with [...] coronary artery bypass surgery Nonsustained ventricular tachycardia ([facility]/HCC) Syncope and collapse Wound of sternal region Chronic diastolic congestive heart failure ([facility]/HCC) COVID-19 Hyperglycemia Metabolic syndrome MGUS (monoclonal gammopathy of unknown significance) Pericardial effusion Pneumonia, bacterial Solitary pulmonary nodule Arthritis of right hip Bilateral lower extremity edema Constipation COPD (chronic obstructive pulmonary disease) ([facility]) Encounter for subsequent annual wellness visit (AWV) in Medicare patient Hearing decreased Hypercholesterolemia Hyperpigmentation Iron deficiency Lymphedema Lymphorrhea Myocardial infarction ([facility]) Nicotine dependence Osteoarthritis of both knees Papillomatosis Sleep apnea Morbid obesity ([facility]) Venous stasis ulcer of right lower extremity ([facility]) Wound cellulitis Diabetes mellitus, type II ([facility]) 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 Barnes and steve castellon reviewed. Hospital notes from the [facility] from his prior admission on 08/18/2022 arealso reviewed. He was admitted and treated for [...] The patient recognizes and understands our options andgoals and we will move forward with our treatment. He is currently taking anti-inflammatories whichcontrol his symptoms fairly well and I would continue this for the time being. If he has decreased efficacy with these or is unable to take these further then I would advance his discussion towards total hip arthroplasty. He has had open heart surgery approx1.5 years ago and was just admitted to [facility] with pneumonia a couple of weeks ago. He is currently not a surgical candidate at [facility] s time but once again if his symptoms advance and he could get clearance then we can consider totalhip arthroplasty. He may follow-up as needed from [...] needed if pain becomes uncontrolled with medications. 11 Farooq, 2023OtherSee orders for this visit as documented in the electronic medical record. [employer] Other 09-15-2022 NotePROCEDURE: XR HIP RT 2 3V WO PELVIS HISTORY: Pain in right hip joint COMPARISON: XR pelvis 09/15/2021 FINDINGS: BONES:Complete loss of the joint space with [id number] articulation. Large periarticular degenerative osteophytes. No fracture, dislocation, bone lesion. SOFT TISSUES:No visible soft tissue swelling. EFFUSION:None visible. OTHER: Atherosclerotic disease. IMPRESSION: 1. 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 2. No appreciable acute abnormality. Electronically authenticated by: NOREEN KELLY Date: 2022-05-08 10:48[facility]10-28-2021 NoteThe [facility] 04-23-2021 NoteThe [facility]02-18-2021 NotePatient Outreach (COVAMN) ARIANNE MCQUEEN ([id number]) 1945 M Date Time Provider Department 10/11/20 WEATHERS, TERRANCE MENDEZ During your visit today, we recorded the following information about you: Allergies As of Date: 10/11/2020 (No Known Allergies) Date Reviewed: 04/21/2020 Reviewed by: Willie Sotelo - Fully Assessed Order(s):SARS-COVID VACCINE 1ST DOSE APPT [[id number]] Order #: [id number] FUTURE Prescriptions as of 10/11/2020 Sig: TRAZODONE [...] [I73.9] 08/19/2012 Letter Text Encounter Status:Closed by GLADYS NEIL on 10/15/20[facility] Evaluation note* Diagnosis Type 2 diabetes mellitus without complication, without long-term current use of insulin (CMS/HCC)- Primary Chronic kidney disease, stage 3a (HCC) (CMS/HCC) Mixed hyperlipidemia (CMS/HCC) Mixed hyperlipidemia 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 (CMS/HCC) Essential hypertension Unspecified essential hypertension Prostate cancer screening Special screening for malignant neoplasm of prostate Obstructive sleep apnea syndrome Obstructive sleep apnea (adult) (pediatric) Chronic obstructive pulmonary disease, unspecified COPD type (CMS/HCC) Venous stasis of both lower extremities Morbid (severe) obesity due to excess calories (CMS/HCC) Body mass index (BMI) 45.0-49.9, adult ([facility]) documented in this encounter [facility] HealthcareEvaluation note* Diagnosis Type 2 [...] apnea (adult) (pediatric) 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 (CMS/HCC) Essential hypertension [...] (CMS/HCC) Body mass index (BMI) 45.0-49.9, adult ([facility]/HCC) Type 2 diabetes mellitus with other skin ulcer (CODE) ([facility]/HCC) Non-pressure chronic ulcer of unspecified part of [...] (CMS/HCC) Mixed hyperlipidemia 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 (CMS/HCC) Essential hypertension Unspecified essential hypertension Prostate cancer screening Special screening for malignant neoplasm of prostate Obstructive sleep apnea syndrome Obstructive sleep apnea (adult) (pediatric) Chronic obstructive pulmonary disease, unspecified COPD type (CMS/HCC) Venous stasis of both lower extremities Morbid (severe) obesity due to excess calories (CMS/[facility]) Body mass index (BMI) 45.0-49.9, adult (CMS/HCC) 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 (CMS/HCC)- Primary Atherosclerosis of hughes coronary artery 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 (CMS/HCC) Mixed hyperlipidemia (CMS/HCC) Mixed hyperlipidemia documented in this encounter [facility] HealthcareEvaluation note* Diagnosis Type 2 diabetes [...] apnea (adult) (pediatric) 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 (CMS/HCC) Essential hypertension [...] (CMS/HCC) Mixed hyperlipidemia 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 (CMS/HCC) Essential hypertension [...] osteoarthritis of knee 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 (CMS/HCC) documented in this encounter [facility] HealthcareEvaluation note* Diagnosis Type 2 [...] apnea (adult) (pediatric) 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 (CMS/HCC) Essential hypertension [...] (CMS/HCC) Body mass index (BMI) 45.0-49.9, adult ([facility]) Type 2 diabetes mellitus with other skin ulcer (CODE) ([facility]) Non-pressure chronic ulcer of unspecified part of unspecified lower leg with unspecified severity (CMS/[facility]) Peripheral vascular disease, unspecified (CMS/[facility]) Peripheral vascular disease, unspecified Other ventricular tachycardia (CMS/[facility]) 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 (CODE) ([facility]) Aortic ectasia, unspecified site (CMS/[facility]) Aortic ectasia, unspecified site Venous stasis of both lower extremities Essential hypertension Unspecified essential hypertension Type 2 diabetes mellitus without complication, without long-term current use of insulin (CMS/HCC)- Primary Chronic kidney disease, stage 3a (HCC) (CMS/HCC) Mixed hyperlipidemia (CMS/HCC) Mixed hyperlipidemia 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 (CMS/HCC) Essential hypertension Unspecified essential hypertension Prostate cancer screening Special screening for malignant neoplasm of prostate Obstructive sleep apnea syndrome Obstructive sleep apnea (adult) (pediatric) Chronic obstructive pulmonary disease, unspecified COPD type (CMS/HCC) Venous stasis of both lower extremities Morbid (severe) obesity due to excess calories (CMS/[facility]) Body mass index (BMI) 45.0-49.9, adult (CMS/HCC) Chronic kidney disease, stage 3a (HCC) (CMS/HCC)- Primary documented in this encounter [facility] HealthcareEvaluation note* Diagnosis Type 2 diabetes mellitus without complication, without long-term current use of insulin (CMS/[facility])- Primary Essential hypertension Unspecified essential hypertension Varicose veins of bilateral lower extremities with pain Morbid obesity (CMS/HCC) Morbid obesity Encounter for subsequent annual wellness visit (AWV) in Medicare patient- Primary Chronic obstructive pulmonary disease, unspecified COPD type (CMS/HCC) Obstructive sleep apnea syndrome Obstructive sleep apnea (adult) (pediatric) 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 (CMS/HCC) Essential hypertension [...] kidney disease, stage 3a (HCC) (CMS/[facility]) Morbid (severe) obesity due to excess calories (CMS/HCC) Body mass index (BMI) 45.0-49.9, adult ([facility]) Type 2 diabetes mellitus with other skin ulcer (CODE) ([facility]) Non-pressure chronic ulcer of unspecified part of unspecified lower leg with unspecified severity ([facility]) Peripheral vascular disease, unspecified (CMS/[facility]) Peripheral vascular disease, unspecified Other ventricular tachycardia ([facility]) 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 (CODE) ([facility]) Aortic ectasia, unspecified site ([facility]) Aortic ectasia, unspecified site Venous stasis of both lower extremities Essential hypertension Unspecified essential hypertension Type 2 diabetes mellitus without complication, without long-term current use of insulin (CMS/HCC)- Primary Chronic kidney disease, stage 3a (HCC) ([facility]/HCC) Mixed hyperlipidemia ([facility]) Mixed hyperlipidemia 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 (CMS/HCC) Essential hypertension Unspecified essential hypertension Prostate cancer screening Special screening for malignant neoplasm of prostate Obstructive sleep apnea syndrome Obstructive sleep apnea (adult) (pediatric) Chronic obstructive pulmonary disease, unspecified COPD type (CMS/HCC) Venous stasis of both lower extremities Morbid (severe) obesity due to excess calories (CMS/[facility]) Body mass index (BMI) 45.0-49.9, adult ([facility]) Type 2 diabetes mellitus without complications (CMS/HCC) documented in this encounter [facility] HealthcareEvaluation note* Diagnosis Type 2 [...] apnea (adult) (pediatric) 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 (CMS/HCC) Essential hypertension Unspecified essential hypertension Type 2 diabetes mellitus without complication, without long-term current use of insulin ([facility]) Chronic diastolic congestive heart failure (CMS/[facility]) Venous stasis of both lower extremities Bilateral lower extremity edema Morbid obesity ([facility]) Morbid obesity Type 2 diabetes mellitus without complication, without long-term current use of insulin ([facility])- Primary Type 2 diabetes mellitus with diabetic chronic kidney disease ([facility]) Chronic kidney disease, stage 3a (HCC) ([facility]) Morbid (severe) obesity due to excess calories ([facility]) Body mass index (BMI) 45.0-49.9, adult ([facility]) Type 2 diabetes mellitus with other skin ulcer (CODE) ([facility]) Non-pressure chronic ulcer of unspecified part of unspecified lower leg with unspecified severity ([facility]) Peripheral vascular disease, unspecified ([facility]) Peripheral vascular disease, unspecified Other ventricular tachycardia ([facility]) 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 (CODE) ([facility]) Aortic ectasia, unspecified site ([facility]) Aortic ectasia, unspecified site Venous stasis of both lower extremities Essential hypertension Unspecified essential hypertension Type 2 diabetes mellitus without complication, without long-term current use of insulin ([facility])- Primary Chronic kidney disease, stage 3a (HCC) (CMS/[facility]) Mixed hyperlipidemia ([facility]) Mixed hyperlipidemia 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 ([facility]) Essential hypertension Unspecified essential hypertension Prostate cancer screening Special screening for malignant neoplasm of prostate Obstructive sleep apnea syndrome Obstructive sleep apnea (adult) (pediatric) Chronic obstructive pulmonary disease, unspecified COPD type ([facility]) Venous stasis of both lower extremities Morbid (severe) obesity due to excess calories ([facility]) Body mass index (BMI) 45.0-49.9, adult ([facility]) Anemia, unspecified documented in this encounter [facility] HealthcareEvaluation note* Diagnosis Type 2 diabetes mellitus without complication, without long-term current use of insulin ([facility])- Primary Essential hypertension Unspecified essential hypertension Varicose veins of bilateral lower extremities with pain Morbid obesity ([facility]/HCC) Morbid obesity Encounter for subsequent annual wellness visit (AWV) in Medicare patient- Primary Chronic obstructive pulmonary disease, unspecified COPD type (CMS/HCC) Obstructive sleep apnea syndrome Obstructive sleep apnea (adult) (pediatric) 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 (CMS/HCC) Essential hypertension [...] mass index (BMI) 45.0-49.9, adult (CMS/[facility]) Type 2 diabetes mellitus with other skin ulcer (CODE) (CMS/[facility]) Non-pressure chronic ulcer of unspecified [...] (CMS/HCC) Mixed hyperlipidemia 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 (CMS/HCC) Essential hypertension Unspecified essential hypertension Prostate cancer screening Special screening for malignant neoplasm of prostate Obstructive sleep apnea syndrome Obstructive sleep apnea (adult) (pediatric) Chronic obstructive pulmonary disease, unspecified COPD type (CMS/HCC) Venous stasis of both lower extremities Morbid (severe) obesity due to excess calories (CMS/[facility]) Body mass index (BMI) 45.0-49.9, adult ([facility]) Type 2 diabetes mellitus without complication, without long-term current use of insulin ([facility]) documented in this encounter [facility] HealthcareEvaluation note* Diagnosis Type 2 [...] apnea (adult) (pediatric) 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 (CMS/HCC) Essential hypertension [...] (CMS/HCC) Body mass index (BMI) 45.0-49.9, adult ([facility]) Type 2 diabetes mellitus with [...] (CMS/HCC) Mixed hyperlipidemia 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 (CMS/HCC) Essential hypertension [...] Localized edema Edema documented in this encounter [facility] HealthcareEvaluation note* Diagnosis Type 2 [...] apnea (adult) (pediatric) 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 (CMS/HCC) Essential hypertension [...] (CMS/HCC) Body mass index (BMI) 45.0-49.9, adult ([facility]) Type 2 diabetes mellitus with [...] (CMS/HCC) Mixed hyperlipidemia 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 (CMS/HCC) Essential hypertension [...] (CMS/HCC) Body mass index (BMI) 45.0-49.9, adult ([facility]) Type 2 diabetes mellitus with diabetic peripheral angiopathy without gangrene (CMS/HCC) Other ventricular tachycardia (CMS/HCC) Chronic obstructive pulmonary disease, unspecified (CMS/HCC) Chronic diastolic (congestive) heart failure (CMS/HCC) Atherosclerosis of hughes coronary artery 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 (CMS/HCC) Essential hypertension Unspecified essential hypertension Chronic kidney disease, stage 3a (HCC) (CMS/HCC) Bilateral lower extremity edema Stasis edema with ulcer of both lower extremities (CMS/HCC) Mixed hyperlipidemia (CMS/HCC) Mixed hyperlipidemia Stasis dermatitis 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 hypertension (CMS/HCC) 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 (CMS/HCC) documented in this encounter [facility] HealthcareEvaluation note* Diagnosis Type 2 diabetes mellitus without complication, without long-term current use of insulin ([facility]/HCC)- Primary Essential hypertension Unspecified essential hypertension Varicose veins of bilateral lower extremities with pain Morbid obesity (CMS/HCC) Morbid obesity Encounter for subsequent annual wellness visit (AWV) in Medicare patient- Primary Chronic obstructive pulmonary disease, unspecified COPD type (CMS/HCC) Obstructive sleep apnea syndrome Obstructive sleep apnea (adult) (pediatric) 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 (CMS/HCC) Essential hypertension [...] (CMS/HCC) Body mass index (BMI) 45.0-49.9, adult ([facility]) Type 2 diabetes mellitus with other skin ulcer (CODE) (CMS/HCC) Non-pressure chronic ulcer of unspecified part of unspecified lower leg with unspecified severity (CMS/HCC) Peripheral vascular disease, unspecified (CMS/HCC) Peripheral vascular disease, unspecified Other ventricular tachycardia (CMS/HCC) 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 (CODE) (CMS/[facility]) Aortic ectasia, unspecified site (CMS/HCC) Aortic ectasia, unspecified site Venous stasis of both lower extremities Essential hypertension Unspecified essential hypertension Type 2 diabetes mellitus without complication, without long-term current use of insulin (CMS/[facility])- Primary Chronic kidney disease, stage 3a (HCC) (CMS/HCC) Mixed hyperlipidemia (CMS/HCC) Mixed hyperlipidemia 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 (CMS/HCC) Essential hypertension Unspecified essential hypertension Prostate cancer screening Special screening for malignant neoplasm of prostate Obstructive sleep apnea syndrome Obstructive sleep apnea (adult) (pediatric) Chronic obstructive pulmonary disease, unspecified COPD type (CMS/[facility]) Venous stasis of both lower extremities Morbid (severe) obesity due to excess calories (CMS/[facility]) Body mass index (BMI) 45.0-49.9, adult ([facility]) Obstructive sleep apnea syndrome- Primary Obstructive sleep apnea (adult) (pediatric) Type 2 diabetes mellitus with diabetic chronic kidney disease (CMS/[facility]) 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 (CODE) ([facility]) Morbid (severe) obesity due to excess calories (CMS/HCC) Body mass index (BMI) 45.0-49.9, adult ([facility]) Type 2 diabetes mellitus with diabetic peripheral angiopathy without gangrene (CMS/HCC) Other ventricular tachycardia (CMS/HCC) Chronic obstructive pulmonary disease, unspecified (CMS/HCC) Chronic diastolic (congestive) heart failure (CMS/HCC) Atherosclerosis of hughes coronary artery 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 (CMS/HCC) Essential hypertension Unspecified essential hypertension Chronic kidney disease, stage 3a (HCC) (CMS/HCC) Bilateral lower extremity edema Stasis edema with ulcer of both lower extremities (CMS/HCC) Mixed hyperlipidemia (CMS/HCC) Mixed hyperlipidemia Stasis dermatitis 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 hypertension (CMS/HCC) 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 (CMS/HCC) Type 2 diabetes mellitus without complications (CMS/HCC) documented in this encounter [facility] HealthcareEvaluation note* Diagnosis Type 2 [...] apnea (adult) (pediatric) 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 (CMS/HCC) Essential hypertension [...] (CMS/HCC) Mixed hyperlipidemia 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 (CMS/HCC) Essential hypertension Unspecified essential hypertension Prostate cancer screening Special screening for malignant neoplasm of prostate Obstructive sleep apnea syndrome Obstructive sleep apnea (adult) (pediatric) Chronic obstructive pulmonary disease, unspecified COPD type (CMS/HCC) Venous stasis of both lower extremities Morbid (severe) obesity due to excess calories (CMS/[facility]) Body mass index (BMI) 45.0-49.9, adult ([facility]) Obstructive sleep apnea syndrome- Primary Obstructive sleep apnea (adult) (pediatric) Type 2 diabetes mellitus with diabetic chronic kidney disease (CMS/[facility]) 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 (CODE) Morbid (severe) obesity due to excess calories ([facility]) Body mass index (BMI) 45.0-49.9, adult ([facility]) Type 2 diabetes mellitus with diabetic peripheral angiopathy without gangrene (CMS/[facility]) Other ventricular tachycardia Chronic obstructive pulmonary disease, unspecified Chronic diastolic (congestive) heart failure Atherosclerosis of hughes coronary artery 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 (CMS/[facility]) Essential hypertension Unspecified essential hypertension Chronic kidney disease, stage 3a (HCC) (CMS/[facility]) Bilateral lower extremity edema Stasis edema with ulcer of both lower extremities (CMS/[facility]) Mixed hyperlipidemia ([facility]) Mixed hyperlipidemia Stasis dermatitis 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 hypertension ([facility]) 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 ([facility]) Chronic obstructive pulmonary disease, unspecified COPD type ([facility])- Primary 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 ([facility]) Essential hypertension Unspecified essential hypertension Type 2 diabetes mellitus with stage 3 chronic kidney disease, without long-term current use of insulin, unspecified whether stage 3a or 3b CKD (HCC) ([facility]) MGUS (monoclonal gammopathy of unknown significance) Monoclonal paraproteinemia Encounter for subsequent annual wellness visit (AWV) in Medicare patient Bilateral primary osteoarthritis of knee 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 ([facility]) documented in this encounter [facility] HealthcareEvaluation note* Diagnosis Type 2 diabetes mellitus without complication, without long-term current use of insulin- Primary Essential hypertension Unspecified essential hypertension Varicose veins of bilateral lower extremities with pain Morbid obesity ([facility]) Morbid obesity Encounter for subsequent annual wellness visit (AWV) in Medicare patient- Primary Chronic obstructive pulmonary disease, unspecified COPD type ([facility]/HCC) Obstructive sleep apnea syndrome Obstructive sleep apnea (adult) (pediatric) 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 (CMS/HCC) Essential hypertension Unspecified essential hypertension Type 2 diabetes mellitus without complication, without long-term current use of insulin Chronic diastolic congestive heart failure ([facility]) Venous stasis of both lower extremities Bilateral lower extremity edema Morbid obesity ([facility]/HCC) Morbid obesity Type 2 diabetes mellitus without complication, without long-term current use of insulin- Primary Type 2 diabetes mellitus with diabetic chronic kidney disease ([facility]/HCC) Chronic kidney disease, stage 3a (HCC) ([facility]) Morbid (severe) obesity due to excess calories ([facility]) Body mass index (BMI) 45.0-49.9, adult ([facility]) Type 2 diabetes mellitus with other skin ulcer (CODE) Non-pressure chronic ulcer of unspecified part of unspecified lower leg with unspecified severity ([facility]) Peripheral vascular disease, unspecified ([facility]) Peripheral vascular disease, unspecified Other ventricular tachycardia 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 (CODE) Aortic ectasia, unspecified site ([facility]) Aortic ectasia, unspecified site Venous stasis of both lower extremities Essential hypertension Unspecified essential hypertension Type 2 diabetes mellitus without complication, without long-term current use of insulin- Primary Chronic kidney disease, stage 3a (HCC) ([facility]) Mixed hyperlipidemia ([facility]) Mixed hyperlipidemia 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 ([facility]) Essential hypertension Unspecified essential hypertension Prostate cancer screening Special screening for malignant neoplasm of prostate Obstructive sleep apnea syndrome Obstructive sleep apnea (adult) (pediatric) Chronic obstructive pulmonary disease, unspecified COPD type ([facility]) Venous stasis of both lower extremities Morbid (severe) obesity due to excess calories ([facility]) Body mass index (BMI) 45.0-49.9, adult ([facility]) Obstructive sleep apnea syndrome- Primary Obstructive sleep apnea (adult) (pediatric) Type 2 diabetes mellitus with diabetic chronic kidney disease ([facility]) 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 (CODE) Morbid (severe) obesity due to excess calories ([facility]) Body mass index (BMI) 45.0-49.9, adult ([facility]) Type 2 diabetes mellitus with diabetic peripheral angiopathy without gangrene ([facility]) Other ventricular tachycardia Chronic obstructive pulmonary disease, unspecified Chronic diastolic (congestive) heart failure Atherosclerosis of hughes coronary artery 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 (CMS/HCC) Essential hypertension Unspecified essential hypertension Chronic kidney disease, stage 3a (HCC) (CMS/HCC) Bilateral lower extremity edema Stasis edema with ulcer of both lower extremities (CMS/HCC) Mixed hyperlipidemia (CMS/HCC) Mixed hyperlipidemia Stasis dermatitis 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 hypertension (CMS/HCC) 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 (CMS/HCC) Encounter for subsequent annual wellness visit (AWV) in Medicare patient- Primary Chronic obstructive pulmonary disease, unspecified COPD type (CMS/HCC) 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 (CMS/HCC) Essential hypertension Unspecified essential hypertension Type 2 diabetes mellitus with stage 3 chronic kidney disease, without long-term current use of insulin, unspecified whether stage 3a or 3b CKD (HCC) ([facility]) Neoplasm of uncertain behavior Neoplasm of uncertain behavior, site unspecified Body mass index (BMI) 45.0-49.9, adult ([facility]) Morbid (severe) obesity due to excess calories ([facility]) documented in this encounter [facility] HealthcareEvaluation note* Diagnosis Type 2 diabetes mellitus without complication, without long-term current use of insulin- Primary Essential hypertension Unspecified essential hypertension Varicose veins of bilateral lower extremities with pain Morbid obesity ([facility]) Morbid obesity Encounter for subsequent annual wellness visit (AWV) in Medicare patient- Primary Chronic obstructive pulmonary disease, unspecified COPD type ([facility]/HCC) Obstructive sleep apnea syndrome Obstructive sleep apnea (adult) (pediatric) 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 ([facility]/HCC) Essential hypertension Unspecified essential hypertension Type 2 diabetes mellitus without complication, without long-term current use of insulin Chronic diastolic congestive heart failure (CMS/HCC) Venous stasis of both lower extremities Bilateral lower extremity edema Morbid obesity (CMS/HCC) Morbid obesity Type 2 diabetes mellitus without complication, without long-term current use of insulin- Primary Type 2 diabetes mellitus with diabetic chronic kidney disease ([facility]/HCC) Chronic kidney disease, stage 3a (HCC) ([facility]/HCC) Morbid (severe) obesity due to excess calories ([facility]) Body mass index (BMI) 45.0-49.9, adult ([facility]) Type 2 diabetes mellitus with [...] (CMS/HCC) Mixed hyperlipidemia 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 (CMS/HCC) Essential hypertension [...] Chronic diastolic (congestive) heart failure Atherosclerosis of hughes coronary artery 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 (CMS/HCC) Essential hypertension Unspecified essential hypertension Chronic kidney disease, stage 3a (HCC) (CMS/HCC) Bilateral lower extremity edema Stasis edema with ulcer of both lower extremities (CMS/HCC) Mixed hyperlipidemia (CMS/HCC) Mixed hyperlipidemia Stasis dermatitis 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 hypertension (CMS/HCC) 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 (CMS/HCC) Encounter for subsequent annual wellness visit (AWV) in Medicare patient- Primary Chronic obstructive pulmonary disease, unspecified COPD type (CMS/HCC) 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 (CMS/HCC) Essential hypertension Unspecified essential hypertension Type 2 diabetes mellitus with stage 3 chronic kidney disease, without long-term current use of insulin, unspecified whether stage 3a or 3b CKD (HCC) ([facility]/HCC) Neoplasm of uncertain behavior Neoplasm of uncertain behavior, site unspecified Body mass index (BMI) 45.0-49.9, adult ([facility]/HCC) Morbid (severe) obesity due to excess calories ([facility]) Epidermal inclusion cyst- Primary Sebaceous cyst Neoplasm of unspecified behavior of bone, soft tissue, and skin documented in this encounter [facility] HealthcareEvaluation note* Diagnosis Type 2 diabetes mellitus without complication, without long-term current use of insulin (HCC)- Primary Essential hypertension Unspecified essential hypertension Varicose veins of bilateral lower extremities with pain Morbid obesity ([facility] [facility]) Morbid obesity Encounter for subsequent annual wellness visit (AWV) in Medicare patient- Primary Chronic obstructive pulmonary disease, unspecified COPD type (HCC) Obstructive sleep apnea syndrome Obstructive sleep apnea (adult) (pediatric) 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 Essential hypertension Unspecified essential hypertension Type 2 diabetes mellitus without complication, without long-term current use of insulin (HCC) Chronic diastolic congestive heart failure (HCC) Venous stasis of both lower extremities Bilateral lower extremity edema Morbid obesity ([facility]) Morbid obesity Type 2 diabetes mellitus without complication, without long-term current use of insulin (HCC)- Primary Type 2 diabetes mellitus with diabetic chronic kidney disease (HCC) Chronic kidney disease, stage 3a (CMS-HCC) Morbid (severe) obesity due to excess calories ([facility]) Body mass index (BMI) 45.0-49.9, adult ([facility]) Type 2 diabetes mellitus with [...] (HCC)- Primary Chronic kidney disease, stage 3a (CMS-HCC) Mixed hyperlipidemia Mixed hyperlipidemia 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 Essential hypertension Unspecified essential hypertension Prostate cancer screening Special screening for malignant neoplasm of prostate Obstructive sleep apnea syndrome Obstructive sleep apnea (adult) (pediatric) Chronic obstructive pulmonary disease, unspecified COPD type (HCC) Venous stasis of both lower extremities Morbid (severe) obesity due to excess calories ([facility]) Body mass index (BMI) 45.0-49.9, adult ([facility]) Obstructive sleep apnea syndrome- Primary Obstructive sleep apnea (adult) (pediatric) 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 (CODE) ([facility]) Morbid (severe) obesity due to excess calories ([facility]) Body mass index (BMI) 45.0-49.9, adult ([facility]) Type 2 diabetes mellitus with diabetic peripheral angiopathy without gangrene (HCC) Other ventricular tachycardia (HCC) Chronic obstructive pulmonary disease, unspecified ([facility]) Chronic diastolic (congestive) heart failure ([facility]) Atherosclerosis of hughes coronary artery 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 Essential hypertension Unspecified essential hypertension Chronic kidney disease, stage 3a ([facility]) Bilateral lower extremity edema Stasis edema with ulcer of both lower extremities (HCC) Mixed hyperlipidemia Mixed hyperlipidemia Stasis dermatitis 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 hypertension ([facility]) 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 Encounter for subsequent annual wellness visit (AWV) in Medicare patient- Primary Chronic obstructive pulmonary disease, unspecified COPD type (HCC) 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 Essential hypertension Unspecified essential hypertension Type 2 diabetes mellitus with stage 3 chronic kidney disease, without long-term current use of insulin, unspecified whether stage 3a or 3b CKD (HCC) Neoplasm of uncertain behavior Neoplasm of uncertain behavior, site unspecified Body mass index (BMI) 45.0-49.9, adult ([facility]) Morbid (severe) obesity due to excess calories ([facility]) Neoplasm of unspecified behavior of bone, soft tissue, and skin- Primary documented in this encounter [facility] Diagnosis Type 2 diabetes mellitus without complication, without long-term current use of insulin (HCC)- Primary Essential hypertension Unspecified essential hypertension Varicose veins of bilateral lower extremities with pain Morbid obesity ([facility]) Morbid obesity Encounter for subsequent annual wellness visit (AWV) in Medicare patient- Primary Chronic obstructive pulmonary disease, unspecified COPD type (HCC) Obstructive sleep apnea syndrome Obstructive sleep apnea (adult) (pediatric) 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 Essential hypertension Unspecified essential hypertension Type 2 diabetes mellitus without complication, without long-term current use of insulin (HCC) Chronic diastolic congestive heart failure (HCC) Venous stasis of both lower extremities Bilateral lower extremity edema Morbid obesity ([facility]) Morbid obesity Type 2 diabetes mellitus without complication, without long-term current use of insulin (HCC)- Primary Type 2 diabetes mellitus with diabetic chronic kidney disease (HCC) Chronic kidney disease, stage 3a ([facility]) Morbid (severe) obesity due to excess calories ([facility]) Body mass index (BMI) 45.0-49.9, adult ([facility]) Type 2 diabetes mellitus with other skin ulcer (CODE) ([facility]) Non-pressure chronic ulcer of unspecified part of unspecified lower leg with unspecified severity ([facility]) Peripheral vascular disease, unspecified Other ventricular tachycardia ([facility]) 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 (CODE) ([facility]) Aortic ectasia, unspecified site Venous stasis of both lower extremities Essential hypertension Unspecified essential hypertension Type 2 diabetes mellitus without complication, without long-term current use of insulin (HCC)- Primary Chronic kidney disease, stage 3a ([facility]) Mixed hyperlipidemia Mixed hyperlipidemia 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 Essential hypertension Unspecified essential hypertension Prostate cancer screening Special screening for malignant neoplasm of prostate Obstructive sleep apnea syndrome Obstructive sleep apnea (adult) (pediatric) Chronic obstructive pulmonary disease, unspecified COPD type ([facility]) Venous stasis of both lower extremities Morbid (severe) obesity due to excess calories ([facility]) Body mass index (BMI) 45.0-49.9, adult ([facility]) Obstructive sleep apnea syndrome- Primary Obstructive sleep apnea (adult) (pediatric) 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 (CODE) (HCC) Morbid (severe) obesity due to excess calories ([facility]) Body mass index (BMI) 45.0-49.9, adult ([facility]) Type 2 diabetes mellitus with diabetic peripheral angiopathy without gangrene (HCC) Other ventricular tachycardia (HCC) Chronic obstructive pulmonary disease, unspecified (HCC) Chronic diastolic (congestive) heart failure (HCC) Atherosclerosis of hughes coronary artery 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 Essential hypertension Unspecified essential hypertension Chronic kidney disease, stage 3a (CMS-HCC) Bilateral lower extremity edema Stasis edema with ulcer of both lower extremities (HCC) Mixed hyperlipidemia Mixed hyperlipidemia Stasis dermatitis 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 hypertension (HCC) 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 Encounter for subsequent annual wellness visit (AWV) in Medicare patient- Primary Chronic obstructive pulmonary disease, unspecified COPD type (HCC) 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 Essential hypertension Unspecified essential hypertension Type 2 diabetes mellitus with stage 3 chronic kidney disease, without long-term current use of insulin, unspecified whether stage 3a or 3b CKD (HCC) Neoplasm of uncertain behavior Neoplasm of uncertain behavior, site unspecified Body mass index (BMI) 45.0-49.9, adult (CMS-HCC) Morbid (severe) obesity due to excess calories ([facility]) Essential hypertension- Primary Unspecified essential hypertension Obstructive sleep apnea syndrome Obstructive sleep apnea (adult) (pediatric) Chronic obstructive pulmonary disease, unspecified COPD type (HCC) Chronic diastolic (congestive) heart failure (HCC) 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 Bilateral lower extremity edema Type 2 diabetes mellitus with stage 3 chronic kidney disease, without long-term current use of insulin, unspecified whether stage 3a or 3b CKD (HCC) Morbid (severe) obesity due to excess calories ([facility]) MGUS (monoclonal gammopathy of unknown significance) Monoclonal paraproteinemia Atherosclerosis of hughes coronary artery 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 Mixed hyperlipidemia Mixed hyperlipidemia 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 documented in this encounter [facility] noteNo assessment information availableRiverview Health Institute [employer] Work Phone: History general Narrative - Reported* Type Description Date Medical History diabetes mallitus Medical HistoryHTNSurgical Historyknee [id number] Bio Other Reason for referral (narrative)No reason for referral information availableGalion [facility] [employer]ame[employer] Work Phone: Reason for visit Narrative* Consultation (Routine) - ClosedSpecialtyDiagnoses / ProceduresReferred By ContactReferred To Contact Dermatology Diagnoses Neoplasm of uncertain behavior Procedures [place] OFFICE/OUTPATIENT NEW HIGH MDM 60 MINUTES Teressa Sierra NP [address] [place] [address] Phone: tel: fax: Maribeth Yoo, DIRECTOR OF CARDIAC REHABILITATION-MANUFACTURERS AGENT [address] [place] [address] Phone: tel: fax: Referral IDStatusReasonStart DateExpiration DateVisits RequestedVisits [id number] Specialty Services Required [facility] Summary Purpose Family History No [...] come to us O ctober 2024 10:30am Reason for Visit Admit Date Venous stasis of both lower extremities May 31, 2025 10:30am Additional Source Comments (unrecognized sect ion and content) No Status Records FoundNo Status Records FoundNo Status Records FoundNo Status Records FoundNo Status Records FoundNo Status Records Found INFORMATION SOURCE (unrecogn ized section and content) DATE CREATED AUTHOR 09/01/2021 [facility] DATE CREATED AUTHOR AUTHOR'S ORGANIZ ATION 04/06/2022 [facility] DATE CREATED AUTHOR AUTHOR'S ORGANIZ ATION 11/04/2022 [facility] DATE CREATED AUTHOR AUTHOR'S ORGANIZ ATION 03/04/2025 [facility] DATE CREATED AUTHOR AUTHOR'S ORGANIZ ATION 03/23/2025 [facility] DATE CREATED AUTHOR AUTHOR'S ORGANIZ ATION 06/11/2025 [facility] REASON FOR VISIT (unrecogniz ed section and content) ReasonOnset DateCommentsMed Ajrwvw8306/13/2024easonCommentsMed RefillReason CommentsDiabetesReasonCommentsMedicare Annual Wellness Visit Initial Care Teams (unrecognized sec tion and content) Team MemberRelationshipSpecialtyStart DateEnd Date Mal Barnes MD [address] [facility] [place] [address] PCP - External PCPFamily Medicine04/24/23 Gilberto Stockton MD [address] [place] [address] PCP - Devoted08/24/23 Gilberto Stockton MD [address] [place] [address] PCP - GeneralFamily Medicine03/09/24 Teressa Sierra NP [address] [place] [address] Nurse Pract[facility]erKen[facility] Medicine09/09/23Team MemberRelationshipSpecialtyStart DateEnd Date Mal Barnes MD [address] [facility] [place] [address] PCP - External PCPFamily Medicine04/24/23 Gilberto Stockton MD [address] [place] [address] PCP - Devoted08/24/23 Gilberto Stockton MD [address] [place] [address] PCP - GeneralFamily Medicine03/09/24 Teressa Sierra NP [address] [place] [address] Nurse PractitionerKen[facility] Hospital Medicine09/09/23Team MemberRelationshipSpecialtyStart DateEnd Date HouseMal MD [address] [facility] [place] [address] PCP - External PCPFamily Medicine04/24/23 Gilberto Stockton MD [address] [place] [address] PCP - Devoted08/24/23 Gilberto Stockton MD [address] [place] [address] PCP - GeneralH[facility] Hospitally Medicine03/09/24 Teressa Sierra NP [address] [place] [address] Nurse PractitionerH[facility] Hospitally Medicine09/09/23Team MemberRelationshipSpecialtyStart DatePenn State Health [facility] CenterMal MD [address] [facility] [place] [address] PCP - External PCPmily Medicine04/24/23 Gilberto Stockton MD [address] [place] [address] PCP - Devoted08/24/23 Gilberto Stockton MD [address] [place] [address] PCP - GeneralH[facility] Hospitally Medicine03/09/24 Teressa Sierra NP [address] [place] [address] Nurse PractitionerFamily Medicine09/09/23Team MemberRelationshipSpecialtyMaynard End Date Mal Barnes MD [address] [place] [address] PCP - External PCPFamily Medicine04/24/23 Gilberto Stockton MD [address] [place] [address] PCP - Devoted08/24/23 Gilberto Stockton MD [address] [place] [address] PCP - GeneralFamily Medicine03/09/24 Teressa Sierra, CUAUHTEMOC [address] [place] [address] Nurse PractitionerHorn Memorial Hospitally Medicine09/09/23Team MemberRelationshipSpecialtyStmaricopa DateEnd Date Mal Barnes MD [address] [place] [facility] [place] [address] PCP - External PCPFamily Medicine04/24/23 Gilberto Stockton MD [address] [place] [address] PCP - Devoted08/24/23 Gilberto Stockton MD [address] [place] [address] PCP - GeneralFamily Medicine03/09/24 Teressa Sierra NP [address] [place] [address] Nurse PractitionerFamily Medicine09/09/23Team MemberRelationshipSpecialtyStart [facility] Mal Barnes MD [address] [facility] [place] [address] PCP - External PCPFamily Medicine04/24/23 Gilberto Stockton MD [address] [place] [address] PCP - Devoted/ Gilberto Stockton MD [address] [place] [address] PCP - GeneralFamily Medicine03/09/24 Teressa Sierra NP [address] [place] [address] Nurse Pract[facility]erKen[facility] Medicine09/09/23Team MemberRelationshipSpecialtyStart DateChrist[facility] Mal Barnes MD [address] [place] [facility] [place] [address] PCP - External PCPFamily Medicine04/24/23 Gilberto Stockton MD [address] [place] [address] PCP - Devoted08/24/2411 Gilberto Stockton MD [address] [place] [address] PCP - GeneralFamily Medicine03/09/24 Teressa Sierra NP [address] [place] [address] Nurse PractitionerFamily Medicine09/09/23Team MemberRelationshipSpecialtyStart End Date Mal Barnes MD [address] [place] [facility] [place] [address] PCP - External PCPFamily Medicine04/24/23 Gilberto Stockton MD [address] [place] [address] PCP - GeneralFamily Medicine03/09/24 Teressa Sierra NP [address] [place] [address] Nurse PractitionerH[facility] Hospitally Medicine09/09/23Team MemberRelationshipSpecialtyStart End Mal Barnes MD [address] [place] [facility] [place] [address] PCP - External PCPFamily Medicine04/24/23 Gilberto Stockton MD [address] [place] [address] PCP - GeneralFamily Medicine03/09/24 Teressa Sierra NP [address] [place] [address] Nurse Practitionermily Medicine09/09/23Team MemberRelationshipSpecialtyStart End Date Mal Barnes MD [address] [place] [address] PCP - External PCPFamily Medicine04/24/23 Gilberto Stockton MD [address] [place] [address] PCP - GeneralFamily Medicine03/09/24 Teressa Sierra, ARTIST SCIENTIFIC [address] [place] [address] Nurse PractitionerFamily Medicine09/09/23Team MemberRelationshipSpecialtyStSt. Francis Hospital Mal Barnes MD [address] [place] [address] PCP - External PCPFamily Medicine04/24/23 Gilberto Stockton MD [address] [place] [address] PCP - GeneralFamily Medicine03/09/24 Teressa Sierra, CUAUHTEMOC [address] [place] [address] Nurse Practitionermily Medicine09/09/23Team MemberRelationshipSpecialtyStart DateChrist[facility] Mal Barnes MD [address] [place] [address] PCP - External PCPFamily Medicine04/24/23 Gilberto Stockton MD [address] [place] [address] PCP - GeneralFamily Medicine03/09/24 Teressa Sierra NP [address] [place] [address] Nurse PractitionerNorth[facility]09/09/23Team MemberRelationshipSpecialtyStmaricopa DateEnd Date EldenaMal MD [address] [place] [address] PCP - External PCPFamily Medicine04/24/23 Gilberto Stockton MD [address] [place] [address] PCP - GeneralNorth[facility]03/09/24 Gilberto Stockton MD [address] [place] [address] PCP - Medical [facility]08/24/2511 Teressa Sierra, CUAUHTEMOC [address] [place] [address] Nurse PractitionerNorthside Hospital [facility]09/09/23Team MemberRelationshipSpecialtyStart DateEnd Date EldenaMal MD [address] [place] [address] PCP - External PCPmiWellstar [facility]04/24/23 Gilberto Stockton MD [address] [place] [address] PCP - GeneralNorth[facility]03/09/24 Gilberto Stockton MD [address] [place] [address] PCP - Medical [place]08/24/2511 Teressa Sierra NP [address] [place] [address] Nurse PractitionerNorth[facility] Hospital [facility]09/09/23Team MemberRelationshipSpecialtyStart DateEnd Mal Barnes MD [address] [place] [address] PCP - External PCPFamily Medicine04/24/23 Gilberto Stockton MD [address] [place] [address] PCP - GeneralFamily Medicine03/09/24 Gilberto Stockton MD [address] [place] [address] PCP - Medical [place]08/24/2511 Teressa Sierra NP [address] [place] [address] Nurse PractitionerNorth[facility] Hospital [facility]09/09/23Team MemberRelationshipSpecialtyStart DateEnd Date Mal Barnes MD [address] [facility] [place] [place] [address] PCP - External PCPFamily Medicine04/24/23 Gilberto Stockton MD [address] [place] [address] PCP - GeneralFamily Medicine03/09/24 Gilberto Stockton MD [address] [place] [address] PCP - Medical [place]08/24/2511 Teressa Sierra, CUAUHTEMOC [address] [place] [address] Nurse PractitionerHorn Memorial Hospitally Medicine09/09/23Team MemberRelationshipSpecialtyStmaricopa DateEnd Date EldenaMal MD [address] [place] [address] PCP - External PCPKenmore Hospital Medicine04/24/23 Gilberto Stockotn MD [address] [place] [address] PCP - GeneralKen[facility] Hospital Medicine03/09/24 Gilberto Stockton MD [address] [place] [address] PCP - Medical [facility]08/24/2511 Teressa Sierra, ARTIST SCIENTIFIC [address] [place] [address] Nurse PractitionerNorthside Hospital [facility]09/09/23Te MemberRelationshipSpecialtyMaynard End EldenaMal MD [address] [place] [address] PCP - External PCPmily Medicine04/24/23 Gilberto Stockton MD [address] [place] [address] PCP - GeneralFamily Medicine03/09/24 Gilberto Stockton MD [address] [place] [address] PCP - Medical [place]08/24/2511 Teressa Sierra, CUAUHTEMOC [address] [place] [address] Nurse PractitionerFamily [facility]09/09/23Team MemberRelationshipSpecialtyStmaricopa [facility] Mal Barnes MD [address] [place], [place] [address] PCP - External PCPFamily Medicine04/24/23 Gilberto Stockton MD [address] [place] [address] PCP - GeneralFamily Medicine03/09/24 Gilberto Stockton MD [address] [place] [address] PCP - Medical [place]08/24/2511 Teressa Sierra, ARTIST SCIENTIFIC [address] [place] [address] Nurse PractitionerNorthside Hospital [facility]09/09/23Te MemberRelationshipSpecialtyStmaricopa End Mal Barnes MD PCP - External PCPFamily Medicine04/24/23 Gilberto Stockton MD [address] [place] [address] PCP - GeneralNorth[facility]03/09/24 Gilberto Stockton MD [address] [place] [address] PCP - Medical [facility]08/24/2511 Teressa Sierra NP [address] [place] [address] Nurse PractitionerNorth[facility]09/09/23Team MemberRelationshipSpecialtyStart DateEnd Mal Barnes MD PCP - External PCPNorthside Hospital [facility]04/24/23 Gilberto Stockton MD [address] [place] [address] PCP - [facility]03/09/24 Gilberto Stockton MD [address] [place] [address] PCP - Medical [facility]08/24/2511 Teressa Sierra NP [address] [place] [address] Nurse PractitionerNorth[facility] Hospital [facility]09/09/23 Team Status: Active Member Role Status Dates [...] Active Member Role Status Dates Teressa Sierra ARTIST SCIENTIFIC-C Primary Care Provider Active Team Status: Active [...] Team Status: Inactive Member Role Status Dates Teressa Sierra ARTIST SCIENTIFIC-C Primary Care Provider Active Start: May 31, 2025 End: May 31, 2025Lobo Sadler ProviderActiveStart: May 31, 2025 End: May 31, 2025 Team Status: Active Member Role Status Dates Teressa Sierra ARTIST SCIENTIFIC-C Primary Care Provider Active Start: May 31, 2025 Lobo Sadler ProviderActiveStart: May 31, 2025 Team Status: Inactive Member Role Status Dates Teressa Sierra ARTIST SCIENTIFIC-C Primary Care Provider Active Start: June 05, 2025 End: June 05, 2025Teressa Sierra NP-CAttending ProviderActiveStart: June 05, 2025 End: June 05, [...] BE BASED ON THE PRIMARY CLINICAL RECORDS. [employer] provides no warranty or guarantee of the accuracy or completeness of information in this document.
--- OUTSIDE RECORDS SUMMARY | 2025-06-13 10:32 | XMS_ITS | Encounter Summary ---
Author Organization [facility] Address [address] [place] [address] Care Team Providers Care Printing Gray Cloth Tender Name Role Phone Teressa Sierra MD Primary Care Provider [phone] Reason for Visit * ReasonCommentsMed Refill Encounter Details DateTypeDepartmentCare Team (Latest Contact Info)Gihhdtdtskz22/20/2025Refill [facility] at [facility] [address] [place] [address] Marianne Hernandez, GREASE REMOVER [address] [place] [phone] Coronary artery disease involving eklutna coronary artery of eklutna heart with other form of angina pectoris Social History Tobacco UseTypesPacks/DayYears UsedDateSmoking Tobacco: FormerCigarettes Smokeless Tobacco: NeverAlcohol UseStandard Drinks/WeekCommentsYes0 (1 standard drink = 0.6 oz pure alcohol)moderateUT Safety & EnvironmentAnswerDate Recorded Fear of Current or Ex-PartnerNot on file10/15/2023Emotionally AbusedNot on file 10/15/2023hysically AbusedNot on file10/15/2023Sexually AbusedNot on file 10/15/2023hysically or Sexually AbusedNot on file10/15/2023Sex and Gender InformationValueDate RecordedSex Assigned at BirthNot on fileLegal SexMale 02/20/2022 12:36 AM EDTGender IdentityNot on fileSexual OrientationNot on file documented as of this encounter Plan of Treatment Not on file documented as of this encounter Visit Diagnoses Diagnosis Coronary artery disease involving eklutna coronary artery of eklutna heart with other form of angina pectoris documented in this encounter Care Teams Team MemberRelationshipSpecialtyStart DateEnd Date Teressa Sierra MD [address] [place] [address] PCP - GeneralNurse Practitioner12/17/23documented as of this encounter
--- OUTSIDE RECORDS SUMMARY | 2025-06-13 10:32 | XMS_ITS | Clinical Summary ---
Author Organization [facility] Address [address] [place] [address] Care Team Providers Care Fish Smoker Name Role Phone House, Mal Bolden MD Unavailable [phone] Teressa Sierra NP Unavailable [phone] Gilberto Stockton MD Primary Care Provider [phone] Gilberto Stockton MD Unavailable Allergies No known active allergies Medications MedicationSigDispense QuantityRefillsLast FilledStart DateEnd DateStatus amLODIPine (Norvasc) 5 MG tablet Take 5 mg by mouth in the morning.Active ASPIRIN 81 MG chewable tablet Chew 81 mg in the morning.Active isosorbide mononitrate ER (Imdur) 30 MG 24 hr tablet Take 30 mg by mouth in the morning. Do not crush or chew..Active TraZODone & Diet Manage Prod (TRAZAMINE PO) Take 50 mg by mouthActive Blood Glucose Monitoring Suppl (True Metrix Go Glucose Meter) w/Device kit Active Lancets 33G misc Active albuterol HFA 90 mcg/act inhaler Inhale 2 puffs every 6 (six) hours if needed for shortness of breath or wheezing Active Lancets 33G misc 1 each DailyActive Blood Glucose Monitoring Suppl (True Metrix Air Glucose Meter) w/Device kit 1 each DailyActive glucose blood (True Metrix Blood Glucose Test) test strip Indications:Type 2 diabetes mellitus without complications (HCC)USE DIRECTED to test BLOOD SUGAR DAILY 50 strip 605Active furosemide (Lasix) 40 MG tablet Take 40 mg by mouth Daily5Active glipiZIDE (Glucotrol) 5 MG tablet Indications:Type 2 diabetes mellitus without complication, without long-term current use of insulin (HCC)Take 0.5 tablets (2.5 mg) by mouth Daily 45 tablet tive spironolactone (Aldactone) 25 MG tablet Indications:Localized edemaTake 0.5 tablets (12.5 mg) by mouth Daily 45 tablet tive atorvastatin (Lipitor) 40 MG tablet Indications: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 Take with meals. 180 tablet 5Active Rswcqqjwzmq-Pvxiqhfpv-Gtpxbp (Trelegy Ellipta) 100-62.5-25 MCG/ACT aerosol powder Indications:Chronic obstructive pulmonary disease, unspecified COPD type (HCC)1 puff by Other route Daily Rinse mouth after use 60 each 5Active Active Problems ProblemNoted DateDiagnosed DateNeoplasm of uncertain pvcggbmo49/28/2025 Assessment & Plan (12/19/2024 7:01 PM EDT): Unclear etiology Will refer to dermatology Stasis edema with ulcer of both lower preycdryqde94/04/2025 Assessment & Plan (09/27/2024 7:13 AM EST): Diuretics, elevation, compression Skin ulcer of left pretibial region with fat layer znuyvfe8109/27/2024Stasis dermatitis 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 lcsdsijhinpk09/04/2025 Assessment & Plan (09/27/2024 4:23 PM EST): He has [facility] Nurse comes out few times per week for dressing changes Also sees Giselle Drew at [facility] for mgmt of wound Type 2 diabetes mellitus with diabetic chronic kidney ftwfdvc3509/05/2024 Assessment & Plan (03/21/2025 7:15 AM EDT): [...] mellitus with diabetic peripheral angiopathy without gangrene 09/05/2024 Assessment [...] 7:13 AM EST): On asa, statin Mixed /09/2024 Assessment & Plan (09/27/2024 7:14 AM EST): Continue statin Check labs yearly and prn dose chagnes Prostate cancer /09/2024hronic kidney disease, stage 3a03/14/2024 Assessment & Plan (09/27/2024 7:13 AM EST): Monitor labs yearly and prn Recommend adequate DM, HTN control, as well as heart failure Assessment & Plan (03/14/2024 7:51 AM EDT): Continue to monitor labs Body mass index (BMI) 45.0-49.9, adult03/14/2024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 (CODE)03/14/2024ortic ectasia, unspecified site03/14/2024 Assessment & Plan (03/14/2024 7:51 AM EDT): As per echo findings Phhjlvqaguz73/25/5182Wvomhvydar15/25/2024rthritis of right hip12/14/2023 Nicotine zlyaaxipad21/22/5277Uvlcgsdyeggfkj72/22/2024Venous stasis of both lower wzffahhrutt79/22/2024 Assessment & Plan (03/14/2024 7:15 PM EDT): Stable at this time Encounter for subsequent annual wellness visit (AWV) in Medicare patient 12/14/2023 [...] given Morbid (severe) obesity due to excess ofhchoxi71/17/2024 Assessment & Plan (03/21/2025 7:15 AM EDT): [...] Activity difficult d/t multiple co morbidities Sleep apnea09/08/2023 Assessment & Plan (03/21/2025 7:13 AM EDT): [...] in a year I did contact the [facility] Sleep lab ext [phone] to find [...] feel more refreshed in the morning: NA [employer] that supplies your machine and tubing/filters etc: Doctor that manages your OJSUE: Dr Amado, has not seen in a year I did contact the [facility] Sleep lab ext [phone] to find out about scheduling the patient to see about an updated PAP machine: voicemail left at 16:20 on 09/27/24 Assessment & Plan (06/01/2024 4:58 PM EDT): Non compliant with PAP use, machine is broke , difficulty finding DME who takes his insurance I did leave a VM on Sleep [facility] regarding this for them to assist Assessment & Plan (12/14/2023 5:30 PM EDT): Follow with [facility] Sleep [facility] Dr Amado, no machine use for last 6 months, it is not working and he is waiting for a new machine Chronic obstructive pulmonary disease, czuozbfjnhr38/16/2024 Assessment & Plan (03/21/2025 3:32 PM EDT): [...] woodruff Varicose veins of bilateral lower extremities with pain09/08/2023 Assessment & Plan (03/21/2025 7:14 AM EDT): Continue with [facility] Vein and Body Assessment & Plan (09/09/2023 4:09 PM EST): Continue with [facility] Vein and Body Myocardial dtrbejwzox45/16/2024AD (coronary artery disease)09/08/2023 Assessment & Plan (03/21/2025 7:14 AM EDT): Continue current meds/dose Assessment & Plan (12/19/2024 7:41 AM EDT): Continue current meds/dose Assessment & Plan (06/01/2024 4:59 PM EDT): Continue current meds/dose Assessment & Plan (12/14/2023 5:31 PM EDT): Follow with cardiology No active chest pain at this time Pt is not taking Jardiance he cannot afford the medication Pelmmzwxhtsj14/16/2024Osteoarthritis of both knees, unspecified osteoarthritis type09/08/2023Iron bgfvyhtrea73/16/2024iabetes mellitus, type II09/08/2023 Assessment & Plan (06/01/2024 5:00 PM EDT): [...] DIABETES MELLITUS WITH DIABETIC CHRONIC KIDNEY DISEASE (HCC)([facility]/HCC) WRITTEN ON 03/14/2024 7:17 PM BY [...] low in carbohydrates, and simple sugars. Hearing xykjyqctb47/16/2024ilateral lower extremity edema09/08/2023 Assessment & Plan (03/21/2025 7:14 AM EDT): Continue spironolactone script Elevate legs as much as possible Limit sodium and wear compression stockings Assessment & Plan (09/27/2024 7:13 AM EST): Continue spironolactone script Elevate legs as much as possible Limit sodium and wear compression stockings Assessment & Plan (12/14/2023 5:33 PM EDT): Continue spironolactone script Essential rxqexqjybeni57/16/2024 Assessment & Plan (03/21/2025 7:14 AM EDT): [...] dose changes at this time Solitary pulmonary zygknb563Chronic diastolic (congestive) heart failure 07/14/2022 Assessment & Plan (03/21/2025 7:19 AM EDT): Follows with [facility] Current meds: asa, statin, b fitz, imdur, aldactone, amlodipine ECHO 02/21/25: EF 74%, bilat atrial enlargement: right mild, left mod. No acute valve issues, mild elevated right sided pressures at 39 Assessment & Plan (09/27/2024 7:12 AM EST): Follows with [facility] Current meds: asa, statin, b fitz, imdur, aldactone, amlodipine Assessment & Plan (12/14/2023 5:32 PM EDT): Continue with cardiology Not able to afford the jardiance script Pericardial effusion (HHS-HCC)08/29/2021therosclerosis of chicken ranch coronary artery of chicken ranch heart without angina kclnicxp20/06/2022 Assessment & Plan (09/27/2024 7:11 AM EST): Current meds: asa, statin, b fitz, imdur, aldactone, Cardiology: [facility] [place] Cough07/03/2021Other ventricular arnpfbutvpu24/10/2021 Assessment & Plan (09/27/2024 7:12 AM EST): Noted on holter in 2020 Cont per cardiology Assessment & Plan (03/14/2024 7:51 AM EDT): Noted on holter in 2020 Cont per cardiology Syncope and pyoumthz87/28/2021MGUS (monoclonal gammopathy of unknown significance)08/19/2012Peripheral vascular disease, zhrdojsfxwf37/27/2012 Assessment & Plan (03/14/2024 7:50 AM EDT): Had SILVIA's in early 2023 Resolved Problems ProblemNoted DateDiagnosed DateResolved DateChronic kidney disease, stage 2 (mild)5009/05/2024Type 2 diabetes mellitus with other skin ulcer (CODE) Non-pressure chronic ulcer of unspecified part of unspecified lower leg with unspecified pddrflyc67 Assessment & Plan (03/14/2024 7:51 AM EDT): Under the care of wound Venous stasis ulcer of right lower sbnftencq67/11/2024 Mkqrjqmxivlikzvrizez67/16/027474/04/20242433Sgose65/10//04/2024History of coronary artery bypass rtemkrw01/10/822085/11/2024 Encounters DateTypeDepartmentCare IceiZqifaseojff08/29/2025 3:00 PM EDTOffice Visit 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 ; Bilateral lower extremity edema; Type 2 diabetes mellitus with stage 3 chronic kidney disease, without long-term current use of insulin, unspecified whether stage 3a or 3b CKD ([facility]); Morbid (severe) obesity due to excess calories ([facility]-HCC); MGUS (monoclonal gammopathy of unknown significance); Atherosclerosis of chicken ranch coronary artery of chicken ranch heart without angina pectoris ; Mixed hyperlipidemia ; 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 [address] [place] [address] Teressa Sierra NP Type 2 diabetes mellitus without complication, without long-term current use of insulin ([facility]); Localized edemafrom Last 3 Months Family History Medical HistoryRelationNameCommentsStrokeBrotherDiabetesFatherHeart disease FatherHypertensionFatherDiabetesMotherHeart diseaseMotherHypertensionMother CancerSisterPulmonary embolismSisterRelationNameStatusCommentsBrotherFather MotherSister Social History Tobacco UseTypesPacks/DayYears UsedDateSmoking Tobacco: FormerCigarettes0.860 Smokeless Tobacco: CurrentChew Tobacco Cessation:Ready to Q uit: Not Asked; Counseling Given: Not Answered Alcohol UseStandard Drinks/WeekCommentsYes0 (1 standard drink = 0.6 oz pure alcohol)3-4 drinks 4 or more times a weekHumiliation, Afraid, Rape, and Kick questionnaireAnswerDate RecordedWithin the last year, have you been afraid of your partner or ex-partner?No12/14/2023Within the last year, have you been humiliated or emotionally abused in other ways by your partner or ex-partner?No 12/14/2023Within the last year, have you been kicked, hit, slapped, or otherwise physically hurt by your partner or ex-partner?No12/14/2023Within the last year, have you been raped or forced to have any kind of sexual activity by your part ner or ex-partner?No12/14/2023Social Connection and Isolation PanelAnswerDate RecordedIn a typical week, how many times do you talk on the phone with family, friends, or neighbors?Once a week12/14/2023How often do you get together with friends or relatives?Once a week12/14/2023How often do you attend restorationism or catholic services?Never12/14/2023o you belong to any clubs or organizations such as restorationism groups, unions, fraternal or athletic groups, or school groups? Yes12/14/2023How often do you attend meetings of the clubs or organizations you belong to?More than 4 times per year12/14/2023re you , , , , never , or living with a partner?Cvozlpmt01/22/2024 AUDIT-CAnswerDate RecordedQ1: How often do you have a drink containing alcohol?4 or more times a week12/14/2023Q2: How many drinks containing alcohol do you have on a typical day when you are drinking?5 or 6012/14/2023Q3: How often do you have six or more drinks on one occasion?Daily or almost daily12/14/2023Overall Financial Resource Strain (CARDIA)AnswerDate RecordedHow hard is it for you to pay for the very basics like food, housing, medical care, and heating?Not very hard12/14/2023HQ-2AnswerDate RecordedPatient Health Questionnaire-2 Score0 12/19/2024[facility] [place] [facility] - Occupational Stress QuestionnaireAnswerDate RecordedDo you feel stress - tense, restless, nervous, or anxious, or unable to sleep at night because yourmind is troubled all the time - these days?Only a azwdso6912/14/2023Exercise Vital SignAnswerDate Recorded On average, how many days per week do you engage in moderate to strenuous exercise (like a brisk walk)?0 days12/14/2023On average, how many minutes do you engage in exercise at this level?0 min12/14/2023Hunger Vital SignAnswerDate RecordedWithin the past 12 months, you worried that your food would run out before you got the money to buymore.Never true12/14/2023Within the past 12 months, the food you bought just didn't last and you didn't have money to get more.Never true12/14/2023RAPARE - TransportationAnswerDate RecordedIn the past 12 months, has lack of transportation kept you from medical appointments or from getting medications?No12/14/2023In the past 12 months, has lack of transportation kept you from meetings, work, or from getting things needed for daily living?No12/14/2023Housing Stability Vital SignAnswerDate RecordedIn the last 12 months, was there a time when you were not able to pay the mortgage or rent on time?No12/14/2023In the last 12 months, how many places have you lived?1 12/14/2023In the last 12 months, was there a time when you did not have a steady place to sleep or slept in [facility] (including now)?No12/14/2023Sex and Gender InformationValueDate RecordedSex Assigned at BirthNot on fileLegal SexMale 11/05/2022 7:08 PM EDTGender IdentityNot on fileSexual OrientationNot on file Last Filed Vital Signs Vital SignReadingTime TakenCommentsBlood Dttgbujv049/68003/21/2025 3:10 PM EDT Chezj378703/21/2025 3:10 PM IWNThxdsaakfha95.7 ??C (98.1 ??F)03/21/2025 3:10 PM EDTRespiratory Fpqf082103/21/2025 3:10 PM EDTOxygen Mncrfcayyl49%03/21/2025 3:10 PM EDTInhaled Oxygen Concentration--Ivlqqn939 kg (327 lb 3.2 oz)03/21/2025 3:10 PM XDCXyancg242.1 cm (5' 10.5 )09/27/2024 2:06 PM ESTBody Mass Index46.28 09/27/2024 2:06 PM EST Plan of Treatment DateTypeDepartmentCare Team (Latest Contact Info)Jpjdwtlarnr48/18/2025 1:00 PM ESTOffice Visit [facility] [address] [place] [address] Brenna Dangelo PA [address] [place] [address] Health MaintenanceDue DateLast DoneCommentsPneumococcal Vaccine: 65+ Years (1 of 2 - PCV)1963Diabetes: Urine Protein Naafccjoz53, 3Diabetes: Retinopathy Ftocsagcl21/4Diabetes: Hemoglobin A1C, 12/19/2024, 06/16/2024, Additional history existsMedicare Annual Wellness (AWV)6012/19/2024, 12/19/2024, 12/14/2023, Additional history existsInfluenza VaccineDiscontinued Procedures Procedure NamePriorityDate/TimeAssociated DiagnosisCommentsPOCT GLYCOSYLATED HEMOGLOBIN (HGB A1C)Qtsbusr7603/21/2025 3:28 PM EDT Type 2 diabetes mellitus with stage 3 chronic kidney disease, without long-term current use of insulin, unspecified whether stage 3a or 3b CKD (HCC) from Last 3 Months Results * (ABNORMAL) POCT glycosylated hemoglobin (Hb A1C) docked device (03/21/2025 3:28 PM EDT)ComponentValueRef RangeTest MethodAnalysis TimePerformed At Pathologist SignatureHemoglobin A1C6.0Specimen (Source)Anatomical Location / LateralityCollection Method / VolumeCollection TimeReceived TimeBloodVenous blood specimen / Qsstgud5803/21/2025 3:28 PM EDT Narrative Authorizing ProviderResult TypeResult StatusLisa Mariela NPPOINT OF CARE TEST ENTER/EDIT ORDERABLESFinal Result from Last 3 Months Insurance Care Teams Team MemberRelationshipSpecialtyStart DateEnd WyarnoMal MD PCP - External PCPFamily Medicine04/24/23 Gilberto Stockton MD PCP - GeneralFamily Medicine03/09/24 Gilberto Stockton MD [address] [place] [address] PCP - [place]08/24/2511 Teressa Sierra NP Nurse PractitionerFamily Medicine09/09/23
--- OUTSIDE RECORDS SUMMARY | 2025-06-13 10:32 | XMS_ITS | Clinical Summary ---
Author Organization [employer] [facility] tem Address [id number] [address] [place] [address] Care Team Providers Care Horse And Wagon Driver Name Role Phone Mal Perez DO Primary Care Provider [phone] Allergies No known active allergies Medications MedicationSigDispense QuantityRefillsLast FilledStart DateEnd DateStatus ferrous sulfate 325 (65 FE) mg tablet Take 325 mg by mouth daily with breakfast.Active clopidogreL (PLAVIX) 75 mg tablet Take 75 mg by mouth daily.Active aspirin 81 mg Take 81 mg by mouth daily.Active atorvastatin (LIPITOR) 40 mg tablet Take 40 mg by mouth nightly.Active furosemide (LASIX) 40 mg tablet Take 1 tablet (40 mg total) by mouth 2 (two) times a day before meals. 60 tablet ctive carvediloL (COREG) 12.5 mg tablet Take 1 tablet (12.5 mg total) by mouth 2 (two) times a day. 60 tablet 11009/03/2021ctive dexAMETHasone (DECADRON) 6 mg tablet Take 1 tablet (6 mg total) by mouth daily. 4 tablet 09/04/2021ctive spironolactone (ALDACTONE) 25 mg tablet Take 1 tablet (25 mg total) by mouth daily. 30 tablet 11009/04/2021ctive Active Problems ProblemNoted DateDiagnosed DatePericardial wnuvzwnc02/06/2022OVID-19008/29/2021 Atherosclerosis of apache coronary artery of apache heart without angina yuchegjf25/06/2022 Immunizations No known immunizations Family History Medical HistoryRelationNameCommentsHeart diseaseMotherRelationNameStatusComments FatherDeceasedMotherDeceased Social History Tobacco UseTypesPacks/DayYears UsedDateSmoking Tobacco: FormerCigarettesQuit: mokeless Tobacco: FormerAlcohol UseStandard Drinks/WeekCommentsYes0 (1 standard drink = 0.6 oz pure alcohol)4-5 white claws dailyChildcareAnswerDate NefzwiqeMntyuanlrEuohncu65/12/2019EmploymentAnswerDate RecordedEmploymentUnknown 02/02/2019Sex and Gender InformationValueDate RecordedSex Assigned at BirthNot on fileLegal GeiKuni8603/29/2015 12:04 PM EDTGender IdentityNot on fileSexual OrientationNot on file Last Filed Vital Signs Vital SignReadingTime TakenCommentsBlood Ifvazhel391/80009/03/2021 12:00 PM EST Ufbdy4002/11/2022 12:00 PM DXLKnydlcqkntb83.8 ??C (98.2 ??F)09/03/2021 12:00 PM ESTRespiratory Ljvn692309/03/2021 12:00 PM ESTOxygen Lwbmpykxhh06%09/03/2021 12:00 PM ESTInhaled Oxygen Concentration--Dggbhh486.5 kg (270 lb 1 oz)09/03/2021 12:36 AM NSOImbjce809.8 cm (5' 10 )08/29/2021 1:00 AM ESTBody Mass Index38.75 08/29/2021 1:00 AM EST Plan of Treatment Health MaintenanceDue DateLast DoneCommentsDepression Lzugauqxy17/18/1956Tobacco Lgghwyckr60/18/1956DTaP,Tdap and Td Vaccines (1 - Tdap)1963Zoster (Shingles) Vaccine (1 of 2)1994Fall Risk Dwklbjkww19/18/2009Influenza Ynuwsou3804/24/2025 Goals GoalPatient Goal TypeAssociated ProblemsRecent ProgressPatient-Stated?Author <enter goal here> Arpita Nixon, RN Note: Evaluation of progress towards goal: home self care Medical Devices Not on file Insurance Advance Directives * Full Code (Latest Code Status on File) Date ActivatedDate InactivatedComments08/29/2021 2:06 AM09/03/2021 8:28 PM Care Teams Team MemberRelationshipSpecialtyStart DateEnd Date Mal Perez DO PCP - GeneralFamily Medicine08/24/21
--- OUTSIDE RECORDS SUMMARY | 2025-06-13 10:32 | XMS_ITS | Patient Health Record ---
Author Organization [facility] in [place] Address [address] [place] [address] Care Team Providers Care Orthodontist Vice President Name Role Phone Teressa Sierra CNP Primary Care Provider Unavail able Wallace Mayers Unavailable [phone] Allergies No Known Allergies Reason For Referral No Information Medications Medication SIG (Take, Route, Frequency, Duration) Notes Start Date End Date Status Trelegy Ellipta 100-62.5-25 MCG/ACT 1 puff Inhalation QD; Duration: 90 days Rinse after use Rinse after use 06/22/2023 ActiveAspirin 81 81 MG1 tablet Orally Once a dayActiveAlbuterol Sulfate HFA 108 (90 Base) MCG/ACT2 puffs as needed for SOB Inhalation Q4H; Duration: 90 days ActiveIsosorbide Mononitrate ER 30 MG1 tablet in the morning Orally Once a day ActiveFeroSul 325 (65 Fe) MGTAKE 1 TABLET BY MOUTH EVERY MORNING WITH a meal Oral; Duration: 72 DaysActiveSpironolactone 25 MG1 tablet OrallyActiveOzempic (0.25 or 0.5 MG/DOSE) 2 MG/3MLSubcutaneous; Duration: 56 DaysActiveAtorvastatin Calcium 40 MG1 tablet Orally Once a [...] since you last smoked?1-5 yearsAdditional Findings: Tobacco vnc-zhfcHi-ynpybsod cigarette smoker (10-19/day) Problems Problem Type SNOMED Code ICD Code Onset Dates Problem Status W/U Status Risk Notes Problem Morbid obesity (disorder) (88765 6002) Morbid (severe) obesity due to excess calories (E66.01) ActiveconfirmedProblemChronic diastolic heart failure (840826088)Chronic diastolic (congestive) heart failure (I50.32)ActiveconfirmedProblemChronic non- pressure ulcer of calf extending to fat level (88673162036053175)Non-pressure chronic ulcer of other part of right lower leg with fat layer exposed (L97.812) ActiveconfirmedProblemChronic ulcer of skin of lower leg (disorder) (69821795993178862)Non-pressure chronic ulcer of other part of left lower leg 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.821)ActiveconfirmedProblemSolitary pulmonary nodule (224255763)Solitary pulmonary nodule (R91.1)ActiveconfirmedProblemLong- term current use of inhaled steroid (421716255)group home (current) use of inhaled steroids (Z79.51)ActiveconfirmedProblemCOPD - Chronic obstructive pulmonary disease (47308585)COPD (chronic obstructive pulmonary disease) (J44.9) ActiveconfirmedProblemObstructive sleep apnea syndrome (97720916)JOSUE (obstructive sleep apnea) (G47.33)ActiveconfirmedProblemBenign essential hypertension (3307726)Benign essential hypertension (I10)ActiveconfirmedProblem Ex-tobacco user (finding) (403478181)History of tobacco abuse (Z87.891)Active lpxdvcgcq8fhu x 28 years, quit 1ProblemAcquired lymphedema (41872068)Acquired lymphedema (I89.0)ActiveconfirmedProblemStasis dermatitis co-occurrent with venous ulcer of right lower extremity due to chronic peripheralvenous hypertension (308658660370061)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)ActiveconfirmedProblemAtherosclerotic heart disease of [place] coronary artery without angina pectoris (950651537788983) Coronary arteriosclerosis in [place] artery (I25.10)ActiveconfirmedCABG 04/08/2021: WILKINS > LAD, SVG > DiagonalProblemStasis edema with ulcer of both lower extremities (I87.313)ActiveconfirmedProblemSecondary pulmonary hypertension (66513098)Other secondary pulmonary hypertension (I27.29)Active confirmedRHC 04/03/2021: RV 48/5, PA 46/11 (28), PCWP 11ProblemChronic ulcer of calf (4153746903374)Non-pressure chronic ulcer of right calf with other specified severity (L97.218)ActiveconfirmedProblemAnkle ulcer (998815917) Ischemic ulcer of right ankle, 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)Active confirmedProblemSkin ulcer of left pretibial region with fat layer exposed (L97.822)ActiveconfirmedProblemHistory of COVID-19 (054024656138175605)History of COVID-19 (Z86.16)ActiveconfirmedProblemAnkle ulcer (601318336)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)ActiveconfirmedProblem Pericardial effusion (350372343)Pericardial effusion (I31.39)Activeconfirmed Encounters Encounter Location Date Provider Diagnosis [facility] [place] [address] [place] [address] 02/07/2025 Wallace Mayers Plan Of Treatment No Information Insurance Providers Payer Name Payer Address Payer Phone Subscriber Number Group Number Insured Name Patient Relationship to Insured Coverage Start Date Coverage End Date [facility] [address] [place] [phone] [id number] Norbert Young - patient is the [id number] [place] [facility] MEDICARE [address] [place] [phone] [id number] Young - patient is the insured Medical (General) History Medical History History ICD Code Coronary arteriosclerosis in [place] holden ry I25.10 Chronic diastolic (congestive) heart [...] Surgery Date(Month/Year) right knee replacement left knee replacementappendectomyArthroscopic knee surgery-Left10/16/2006 Sqglncpplxhbrzp63/14/1786ZZGB38/16/2021ardiac Apnvhcxbdwkiabh91/11/2021 Hospitalization History Reason Date(Month/Year) Sepsis/Pneumonia 08/18/2022
== END 2025-06-13 10:27 | disposition home or self-care (01) ==
LOC: WC 10:27
PROVIDERS: PCP Nurse Practitioner; Visit Provider Physician Assistant
DX: L98.8 Other specified disorders of the skin and subcutaneous tissue (principal); I87.312 Chronic venous hypertension (idiopathic) with ulcer of left lower extremity; L97.822 Non-pressure chronic ulcer of other part of left lower leg with fat layer exposed
CPT/HCPCS: G0463

== ENCOUNTER 2025-07-19 09:30 | Outpatient (RCR) | payer MEDICARE, SELFPAY ==
[2025-07-19 10:09] LABS: Hematocrit 36.6 % (42.0-54.0); Hemoglobin 11.8 g/dL (14.0-18.0); Immature Granulocytes Abs Auto 0.04 10^3/uL (0.00-0.03); Immature Granulocytes Pct Auto 0.7 % (0.0-0.5); Lymphocytes Absolute Auto 1.0 10^3/uL (1.2-3.8); Mean Corpuscular HGB Conc 32.2 g/dL (29.9-35.2); Mean Corpuscular Hemoglobin 30.7 pg (25.9-34.0); Mean Corpuscular Volume 95.3 fL (80.0-94.0); Platelet Count 218 10^3/uL (150-450); Red Blood Count 3.84 10^6/uL (4.70-6.10); White Blood Count 6.0 10^3/uL (4.0-11.0)
[2025-07-19 10:57] LABS: Iron 58.0 ug/dL (65.0-175.0); Percent Iron Saturation 22.5 %; Total Iron Binding Capacity 258.0 ug/dL (250.0-450.0)
[2025-07-19 11:25] LABS: Ferritin 376.0 ng/mL (26.0-388.0); Folate 8.30 ng/mL (8.60-58.90)
[2025-07-20 04:07] LABS: Vitamin B12 261 pg/mL (232-1245)
[2025-07-24 14:08] LABS: Albumin 3.2 g/dL (2.9-4.4); Alpha-1-Globulin 0.2 g/dL (0.0-0.4); Alpha-2-Globulin 0.7 g/dL (0.4-1.0); Free Kappa Lt Chains,S 116.7 mg/L (3.3-19.4); Free Lambda Lt Chains,S 19.4 mg/L (5.7-26.3); Gamma Globulin 2.3 g/dL (0.4-1.8); Immunoglobulin A, Qn, Serum 66 mg/dL (61-437); Kappa/Lambda Ratio,S 6.02 (0.26-1.65)
== END 2025-07-23 23:59 | disposition home or self-care (01) ==
LOC: HEMC 09:30
PROVIDERS: PCP Nurse Practitioner; Visit Provider Internal Medicine Hematology & Oncology
DX: D50.9 Iron deficiency anemia, unspecified (principal); D47.2 Monoclonal gammopathy; D72.819 Decreased white blood cell count, unspecified; D69.6 Thrombocytopenia, unspecified; E53.8 Deficiency of other specified B group vitamins; D64.9 Anemia, unspecified; Z87.891 Personal history of nicotine dependence; N28.9 Disorder of kidney and ureter, unspecified; F10.90 Alcohol use, unspecified, uncomplicated
CPT/HCPCS: 36415; 82607; 82728; 82746; 82784; 83521; 83540; 83550; 83615; 84155; 84165; 85025; 85652; 86140; 86334; G0463

== ENCOUNTER 2025-08-22 12:47 | Outpatient (RCR) | payer MEDICARE, SELFPAY | END 2025-08-23 23:59 | disposition home or self-care (01) | LOC: HEMC 12:47 | PROVIDERS: PCP Nurse Practitioner; Visit Provider Internal Medicine Hematology & Oncology | DX: D50.9 Iron deficiency anemia, unspecified (principal); D47.2 Monoclonal gammopathy; D72.819 Decreased white blood cell count, unspecified; D69.6 Thrombocytopenia, unspecified; E53.8 Deficiency of other specified B group vitamins; D64.9 Anemia, unspecified; C90.00 Multiple myeloma not having achieved remission | CPT/HCPCS: G0463 ==